=== PATIENT | male | born 1985 | race Caucasian/White ===

== ENCOUNTER 2023-04-02 02:51 | Emergency (ER) | payer OTHER, SELFPAY ==
[2023-04-02 02:55] VITALS: BP 210/89; PULSE 75; RESP 16; TEMP 36.8; O2SAT 97; BMI 21.1
--- NOTE | 2023-04-02 03:11 | ED_ITS ---
HPI - Abdominal Pain General Chief Complaint: Abdominal Pain Stated Complaint: CONSTIPATION Time Seen by Provider: 04/02/23 03:07 Source: patient Mode of arrival: walk-in Limitations: no limitations History of Present Illness HPI narrative: presents complaining of constipation. States he has not gone in 4 days. Hemodialysis patient. States his kidneys hurt. No fever. Started taking colace and states he is only passing water elicited complaint: Reports abdominal pain Related Data Home Medications Medication Instructions Recorded Confirmed aspirin 81 mg chewable tablet 04/02/23 atorvastatin 80 mg tablet mg 04/02/23 calcium acetate(phosphat bind) 667 mg 04/02/23 mg capsule carvedilol 25 mg tablet mg 04/02/23 clonidine HCl 0.1 mg tablet mg 04/02/23 clopidogrel 75 mg tablet mg 04/02/23 escitalopram oxalate 10 mg tablet mg 04/02/23 famotidine 20 mg tablet mg 04/02/23 furosemide 40 mg tablet mg 04/02/23 hydralazine 50 mg tablet mg 04/02/23 insulin glargine 100 unit/mL (3 unit subcut 04/02/23 mL) subcutaneous pen (Lantus Solostar U-100 Insulin) insulin lispro 100 unit/mL subcut 04/02/23 subcutaneous pen (Humalog KwikPen (U-100) Insulin) isosorbide mononitrate 60 mg mg PO 04/02/23 tablet,extended release 24 hr loratadine 10 mg tablet mg 04/02/23 omeprazole 40 mg capsule,delayed mg 04/02/23 release Allergies Allergy/AdvReac Type Severity Reaction Status Date / Time No Known Drug Allergies Allergy Verified 04/02/23 03:01 Review of Systems ROS Status of ROS 10 or more systems reviewed and unremarkable except as noted in history and below Exam Constitutional Vital Signs, click to edit/add: Last Vital Signs Temp 98.3 F 04/02/23 02:55 Pulse 73 04/02/23 06:48 Resp 18 04/02/23 06:48 BP 180/86 H 04/02/23 06:48 Pulse Ox 100 04/02/23 06:48 O2 Del Method Room Air 04/02/23 06:48 Common normals: average body habitus, oriented x3 and alert Eye Common normals: EOMs intact bilaterally and conjunctivae normal Respiratory Common normals: normal respiratory effort, no retractions, no use of accessory muscles and clear to auscultation bilaterally GI Common normals: Normal to inspection, nondistended, normoactive bowel sounds present and soft to palpation Other: mild tenderness Extremity Common normals: normal to inspection and full ROM Neuro Common normals: oriented x3, CN's II-XII intact bilaterally, moves all extremities and no focal motor deficits Psych Appearance: grossly normal Course Vital Signs Vital signs: Vital Signs Temperature 98.3 F 04/02/23 02:55 Pulse Rate 75 04/02/23 02:55 Respiratory Rate 16 04/02/23 02:55 Blood Pressure 210/89 H 04/02/23 02:55 Pulse Oximetry 97 04/02/23 02:55 Oxygen Delivery Method Room Air 04/02/23 02:55 Temperature 98.3 F 04/02/23 02:55 Pulse Rate 73 04/02/23 06:48 Respiratory Rate 18 04/02/23 06:48 Blood Pressure 180/86 H 04/02/23 06:48 Pulse Oximetry 100 04/02/23 06:48 Oxygen Delivery Method Room Air 04/02/23 06:48 MDM - Abdominal Pain MDM Narrative Medical decision making narrative: patient presents with constipation. dialsysis patient . CT confirms constipation. Several attempts with enema unsuccessful and patient is not wanting any further enemas. He has not been vomiting. Go lytely ordered for home. He is to return if not successful BP elevated at 180 systolic. Patient does have history of HTN. Takes several medications for HTN. States he doesn't want medication here for his BP and will take medications at home Lab Data Labs: Lab Results 04/02/23 Range/Units 03:23 WBC 10.0 (4.0-11.0) 10^3/uL RBC 4.70 (4.70-6.10) 10^6/uL Hgb 14.3 (14.0-18.0) g/dL Hct 41.8 L (42.0-54.0) % MCV 88.9 (80.0-94.0) fL MCH 30.4 (25.9-34.0) pg MCHC 34.2 (29.9-35.2) g/dL RDW 15.5 H (11.0-15.0) % Plt Count 177 (150-450) 10^3/uL MPV 9.5 (9.5-13.5) fL Neut % (Auto) 85.2 H (43.0-75.0) % Lymph % (Auto) 8.2 L (20.5-60.0) % [place] % (Auto) 4.0 (1.7-12.0) % Eos % (Auto) 1.0 (0.9-7.0) % Baso % (Auto) 1.2 (0.2-2.0) % Neut # (Auto) 8.5 H (1.4-6.5) 10^3/uL Lymph # (Auto) 0.8 L (1.2-3.8) 10^3/uL [place] # (Auto) 0.4 (0.3-0.8) 10^3/uL Eos # (Auto) 0.1 (0.0-0.7) 10^3/uL Baso # (Auto) 0.1 (0.0-0.1) 10^3/uL Abs Immat Gran (auto) 0.04 H (0.00-0.03) 10^3/uL Imm/Tot Granulo (auto) 0.4 (0.0-0.5) % Sodium 133 L (136-145) mmol/L Potassium 3.9 (3.5-5.1) mmol/L Chloride 94 L (98-107) mmol/L Carbon Dioxide 29.3 (21.0-32.0) mmol/L Anion Gap 13.6 BUN 26.0 H (7.0-18.0) mg/dL Creatinine 4.22 H (0.70-1.30) mg/dL Est GFR ( Amer) 19 L (>=60) Est GFR (Non-Af Amer) 16 L (>=60) BUN/Creatinine Ratio 6.2 Glucose 197 H (74-106) mg/dL Calcium 8.8 (8.5-10.1) mg/dL Imaging Data CT scan - abdomen: Radiologist's impression: [email or web address]=#[email or web address] [email or web address]?file=#[email or web address] Find: Highlight all Match case Current View [email or web address]=#[email or web address]=auto,-[phone] Page: of 2 Current View [email or web address]=#[email or web address]=auto,-[phone] [place] [id number] Patient Name: VIKTORIYA TAMAYO MRN: [id number] date: 1985 Sex: M Assigned Patient Location: ER Current Patient Location: ER Accession/Order Number: [id number] Exam Date: 04/02/2023 03:40 Report Date: 04/02/2023 04:19 At the request of: HOLLIE HAWLEY Procedure: CT abdomen pelvis wo con CT ABDOMEN AND PELVIS WITHOUT CONTRAST: 04/02/2023 3:40 AM EDT Clinical Data: abdominal pain Comparison: No previous Unenhanced helically acquired data per protocol. The lack of IV contrast material hampers evaluation of the viscera, for adenopathy, and of the vasculature. The lack of oral contrast medium to some extent hampers evaluation of the bowel. All CT scans at this facility use dose modulation, iterative reconstruction, and/or weight based dosing when appropriate to reduce radiation dose to as low as reasonably achievable. FINDINGS: LOWER THORAX: Unremarkable. LIVER: No acute findings. SPLEEN: No acute findings. GB/BILIARY: No acute findings at CT. PANCREAS: Very difficult to separate from numerous juxtaposed bowel. No gross abnormality ADRENALS: No acute findings. KIDNEYS/URETERS: No acute findings. VESSELS: No evidence of AAA. Calcific ASVD distal aorta and aortic bifurcation extending through the common iliac arteries and into the internal iliac arteries. This is greater than expected for age. ABDOMINAL NODES: No obvious adenopathy. PELVIC NODES: No obvious adenopathy. BLADDER: No acute findings. REPRODUCTIVE: No acute findings. PERITONEUM: No free air EXTRAPERITONEUM: No acute findings. BOWEL: No GI obstruction. The supralevator rectum distended to nearly 8 cm with stool. Margins are slightly concentrically thickened and there is a small amount of loose peribowel fluid/stranding. More proximally there is moderate stool in the distal sigmoid. There is a modest to moderate amount of stool and air right colon through splenic flecture. Stomach contains a modest amount fluid. Small bowel is not dilated BODY WALL: No acute findings. BONES: No acute findings. OTHER: No acute findings. IMPRESSION: 1. Supralevator rectum is distended with stool to nearly 8 cm. Margins are concentrically mildly thickened/inflamed and there is a small amount of loose peribowel fluid/stranding.. Electronically authenticated by: CHRIS DUFFY Date: 04/02/2023 04:19 Discharge Plan Discharge Chief Complaint: Abdominal Pain Clinical Impression: Constipation Patient Disposition: Home, Self-Care Prescriptions / Home Meds: No Action atorvastatin 80 mg tablet aspirin 81 mg tablet,chewable calcium acetate(phosphat bind) 667 mg capsule furosemide 40 mg tablet carvedilol 25 mg tablet clonidine HCl 0.1 mg tablet clopidogrel 75 mg tablet omeprazole 40 mg capsule,delayed release(DR/EC) isosorbide mononitrate 60 mg tablet extended release 24 hr PO famotidine 20 mg tablet hydralazine 50 mg tablet loratadine 10 mg tablet insulin lispro [Humalog KwikPen Insulin] 100 unit/mL insulin pen SUBCUT escitalopram oxalate 10 mg tablet insulin glargine [Lantus Solostar U-100 Insulin] 100 unit/mL (3 mL) insulin pen SUBCUT Instructions: Constipation (ED) Additional Instructions: follow instructions for Go lytely . return to ER if not successful bowel movement today Stand Alone Forms: Portal Instructions Referrals: Laurel Baca MD [Primary Care Provider] - 1 week Discharge Date/Time: 04/02/23 07:31
[2023-04-02 03:37] LABS: Anion Gap 13.6; BUN Creatinine Ratio 6.2; Calcium 8.8 mg/dL (8.5-10.1); Carbon Dioxide 29.3 mmol/L (21.0-32.0); Chloride 94 mmol/L (98-107); Estimated GFR (African America 19 (>=60); Estimated GFR (Non-African Ame 16 (>=60); Glucose 197 mg/dL (74-106); Potassium 3.9 mmol/L (3.5-5.1); Sodium 133 mmol/L (136-145)
--- NOTE | 2023-04-02 03:40 | CT_ITS ---
The [address] [address] Patient Name: VIKTORIYA TAMAYO MRN: [id number] date: 1985 Sex: M Assigned Patient Location: ER Current Patient Location: ER Accession/Order Number: [id number] Exam Date: 04/02/2023 03:40 Report Date: 04/02/2023 04:19 At the request of: HOLLIE HAWLEY Procedure: CT abdomen pelvis wo con CT ABDOMEN AND PELVIS WITHOUT CONTRAST: 04/02/2023 3:40 AM EDT Clinical Data: abdominal pain Comparison: No previous Unenhanced helically acquired data per protocol. The lack of IV contrast material hampers evaluation of the viscera, for adenopathy, and of the vasculature. The lack of oral contrast medium to some extent hampers evaluation of the bowel. All CT scans at this facility use dose modulation, iterative reconstruction, and/or weight based dosing when appropriate to reduce radiation dose to as low as reasonably achievable. FINDINGS: LOWER THORAX: Unremarkable. LIVER: No acute findings. SPLEEN: No acute findings. GB/BILIARY: No acute findings at CT. PANCREAS: Very difficult to separate from numerous juxtaposed bowel. No gross abnormality ADRENALS: No acute findings. KIDNEYS/URETERS: No acute findings. VESSELS: No evidence of AAA. Calcific ASVD distal aorta and aortic bifurcation extending through the common iliac arteries and into the internal iliac arteries. This is greater than expected for age. ABDOMINAL NODES: No obvious adenopathy. PELVIC NODES: No obvious adenopathy. BLADDER: No acute findings. REPRODUCTIVE: No acute findings. PERITONEUM: No free air EXTRAPERITONEUM: No acute findings. BOWEL: No GI obstruction. The supralevator rectum distended to nearly 8 cm with stool. Margins are slightly concentrically thickened and there is a small amount of loose peribowel fluid/stranding. More proximally there is moderate stool in the distal sigmoid. There is a modest to moderate amount of stool and air right colon through splenic flecture. Stomach contains a modest amount fluid. Small bowel is not dilated BODY WALL: No acute findings. BONES: No acute findings. OTHER: No acute findings. CT/CT abdomen pelvis wo con IMPRESSION: 1. Supralevator rectum is distended with stool to nearly 8 cm. Margins are concentrically mildly thickened/inflamed and there is a small amount of loose peribowel fluid/stranding.. Electronically authenticated by: CHRIS DUFFY Date: 04/02/2023 04:19
[2023-04-02 03:47] LABS: Basophils Absolute Auto 0.1 10^3/uL (0.0-0.1); Basophils Percent Auto 1.2 % (0.2-2.0); Eosinophils Absolute Auto 0.1 10^3/uL (0.0-0.7); Hematocrit 41.8 % (42.0-54.0); Hemoglobin 14.3 g/dL (14.0-18.0); Immature Granulocytes Abs Auto 0.04 10^3/uL (0.00-0.03); Immature Granulocytes Pct Auto 0.4 % (0.0-0.5); Lymphocytes Absolute Auto 0.8 10^3/uL (1.2-3.8); Lymphocytes Percent Auto 8.2 % (20.5-60.0); Mean Corpuscular HGB Conc 34.2 g/dL (29.9-35.2); Mean Corpuscular Hemoglobin 30.4 pg (25.9-34.0); Mean Corpuscular Volume 88.9 fL (80.0-94.0); Mean Platelet Volume 9.5 fL (9.5-13.5); Monocytes Absolute Auto 0.4 10^3/uL (0.3-0.8); Neutrophils Absolute Auto 8.5 10^3/uL (1.4-6.5); Neutrophils Percent Auto 85.2 % (43.0-75.0); Platelet Count 177 10^3/uL (150-450); Red Cell Distribution Width 15.5 % (11.0-15.0)
--- NOTE | 2023-04-02 06:24 | PC.NURSE ---
Digital completed to try and break up stool Patient was unable to tolerate it. More enema given
--- NOTE | 2023-04-02 06:35 | PC.NURSE ---
Patient refuses any further enema, states his rectum hurts and he is getting a headache. Dr dickerson
[2023-04-02 06:48] VITALS: BP 180/86; PULSE 73; RESP 18; O2SAT 100
[2023-04-02] MEDS: PEG3350/SOD SULF,BICARB,CL/KCL 4,000 ML SOLN.RECON 4000 ML PO (07:26)
== END 2023-04-02 07:31 | disposition home or self-care (01) ==
PROVIDERS: Emergency Provider Internal Medicine; PCP Family Medicine
DX: K59.00 Constipation, unspecified (principal); I10 Essential (primary) hypertension; Z99.2 Dependence on renal dialysis; Z79.82 Long term (current) use of aspirin; Z79.4 Long term (current) use of insulin; Z79.899 Other long term (current) drug therapy
CPT/HCPCS: 36415; 74176; 80048; 85025; 99284

== ENCOUNTER 2023-04-15 16:17 | Emergency (ER) | payer OTHER, SELFPAY ==
[2023-04-15 16:20] VITALS: PULSE 75; RESP 18; TEMP 36.8; O2SAT 98; BMI 22.4
--- NOTE | 2023-04-15 16:21 | ECG_ITS ---
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
--- NOTE | 2023-04-15 16:32 | CT_ITS ---
The [address] [address] Patient Name: VIKTORIYA TAMAYO MRN: [id number] date: 1985 Sex: M Assigned Patient Location: ER Current Patient Location: ER Accession/Order Number: [id number] Exam Date: 04/15/2023 17:03 Report Date: 04/15/2023 17:24 At the request of: CHELSY HOWE Procedure: CT head/brain wo con TITLE: CT head/brain wo con COMPARISON: None. CLINICAL HISTORY: SIMENTAL, HTN TECHNIQUE: 3 mm axial images without contrast. Automated exposure control was utilized. Dose reduction techniques were achieved by using automated exposure control and/or adjustment of mA and/or kV according to patient size and/or use of iterative reconstruction technique. FINDINGS: There is no mass, mass effect, parenchymal hemorrhage, nor subarachnoid hemorrhage. The extra-axial structures are unremarkable. There is no hydrocephalus. A left orbital prosthesis present. The mastoid air cells and paranasal sinuses are patent CT/CT head/brain wo con IMPRESSION: NO ACUTE INTRACRANIAL FINDINGS BY HEAD CT WITHOUT CONTRAST. DIFFUSION-WEIGHTED MRI COULD INVESTIGATE PERSISTENT SYMPTOMS Electronically authenticated by: ZURI PICKETT Date: 04/15/2023 17:24
--- NOTE | 2023-04-15 16:34 | ED.GENADUL1 ---
HPI - General Adult General Chief complaint: Headache Stated complaint: Headache, Hypertension, Stiff neck post dialysis Time Seen by Provider: 04/15/23 16:29 Source: patient and family Mode of arrival: Wheelchair Limitations: no limitations History of Present Illness HPI narrative: 38 year old male presents to the ED for a generalized headache, N/V, epigastric pain, HTN. Onset was during dialysis today. Denies fever, chills, vision changes, diarrhea, CP, SOB. Reports photophobia. He had Tylenol and clonidine at dialysis this morning. States he has been taking his BP medication as directed. Rates his pain 10/10 at this time. Reports his father brought him to the ED today. Related Data Home Medications Medication Instructions Recorded Confirmed aspirin 81 mg chewable tablet 04/02/23 atorvastatin 80 mg tablet mg 04/02/23 calcium acetate(phosphat bind) 667 mg 04/02/23 mg capsule carvedilol 25 mg tablet mg 04/02/23 clonidine HCl 0.1 mg tablet mg 04/02/23 clopidogrel 75 mg tablet mg 04/02/23 escitalopram oxalate 10 mg tablet mg 04/02/23 famotidine 20 mg tablet mg 04/02/23 furosemide 40 mg tablet mg 04/02/23 hydralazine 50 mg tablet mg 04/02/23 insulin glargine 100 unit/mL (3 unit subcut 04/02/23 mL) subcutaneous pen (Lantus Solostar U-100 Insulin) insulin lispro 100 unit/mL subcut 04/02/23 subcutaneous pen (Humalog KwikPen (U-100) Insulin) isosorbide mononitrate 60 mg mg PO 04/02/23 tablet,extended release 24 hr loratadine 10 mg tablet mg 04/02/23 omeprazole 40 mg capsule,delayed mg 04/02/23 release Previous Rx's Medication Instructions Recorded xflbhuygyu-hywrubiqudseg-mxjruzbs 1 cap PO Q8H PRN pain, headache 04/15/23 50 mg-300 mg-40 mg capsule #10 caps (Fioricet) Allergies Allergy/AdvReac Type Severity Reaction Status Date / Time No Known Drug Allergies Allergy Verified 04/02/23 03:01 Review of Systems ROS Constitutional Denies: fever, chills or fatigue Eyes Reports: light sensitivity; Denies: change in vision or blurry vision Ears, nose, mouth, and throat Denies: throat pain, nasal discharge or nasal congestion Cardiovascular Denies: chest pain Respiratory Denies: shortness of breath or cough Gastrointestinal Reports: abdominal pain, nausea and vomiting; Denies: diarrhea Musculoskeletal Denies: back pain Integumentary/Breast Denies: rash Neurological Reports: headache; Denies: numbness in extremities, weakness in extremities, lack of coordination, dizziness, vertigo, confusion or slurred speech Exam Constitutional Vital Signs, click to edit/add: Last Vital Signs Temp 98.2 F 04/15/23 16:20 Pulse 75 04/15/23 16:20 Resp 18 04/15/23 16:20 BP 132/82 04/15/23 18:28 Pulse Ox 98 04/15/23 16:20 O2 Del Method Room Air 04/15/23 16:20 Common normals: no apparent distress and oriented x3 Exam limitations: no altered mental status General appearance: cooperative; not in distress and not ill appearing [facility] Common normals: normocephalic Head and scalp: normal to inspection Face and sinus: normal facial exam and face symmetric Nose: external nose normal External ear: external ears normal Eye Common normals: PERRL, EOMs intact bilaterally, conjunctivae normal and no scleral icterus Neck & C-Spine Common normals: supple General: trachea midline Chest Chest: symmetrical chest wall rise Respiratory Common normals: normal respiratory effort and clear to auscultation bilaterally Effort & inspection: symmetric chest movement Cardio Common normals: regular rate and regular rhythm GI Common normals: Normal to inspection, nondistended, normoactive bowel sounds present, soft to palpation and non-tender Neuro Common normals: oriented x3, CN's II-XII intact bilaterally, moves all extremities and gait normal Sensorium/orientation: awake and alert Meningeal signs: no meningeal signs Speech: speech normal Course Vital Signs Vital signs: Vital Signs Temperature 98.2 F 04/15/23 16:20 Pulse Rate 75 04/15/23 16:20 Respiratory Rate 18 04/15/23 16:20 Pulse Oximetry 98 04/15/23 16:20 Oxygen Delivery Method Room Air 04/15/23 16:20 Temperature 98.2 F 04/15/23 16:20 Pulse Rate 75 04/15/23 16:20 Respiratory Rate 18 04/15/23 16:20 Blood Pressure 132/82 04/15/23 18:28 Pulse Oximetry 98 04/15/23 16:20 Oxygen Delivery Method Room Air 04/15/23 16:20 Medical Decision Making MDM Narrative Medical decision making narrative: Laboratory studies were unremarkable when compared to baseline. Imaging was negative for acute findings. He was given medication with improvement in his BP and discomfort. He reported he was comfortable being discharged home. A prescription was provided for Fioricet. Follow up with pcp for a recheck, further evaluation and treatment. Medical Records Medical records reviewed: Yes I reviewed the patient's medical records Lab Data Lab results reviewed: Yes I reviewed the patient's lab results Labs: Lab Results 04/15/23 04/15/23 Range/Units 16:35 17:04 WBC 7.6 (4.0-11.0) 10^3/uL RBC 4.19 L (4.70-6.10) 10^6/uL Hgb 12.5 L (14.0-18.0) g/dL Hct 38.0 L (42.0-54.0) % MCV 90.7 (80.0-94.0) fL MCH 29.8 (25.9-34.0) pg MCHC 32.9 (29.9-35.2) g/dL RDW 14.2 (11.0-15.0) % Plt Count 186 (150-450) 10^3/uL MPV 9.5 (9.5-13.5) fL Neut % (Auto) 77.7 H (43.0-75.0) % Lymph % (Auto) 14.1 L (20.5-60.0) % [place] % (Auto) 4.3 (1.7-12.0) % Eos % (Auto) 2.1 (0.9-7.0) % Baso % (Auto) 1.4 (0.2-2.0) % Neut # (Auto) 5.9 (1.4-6.5) 10^3/uL Lymph # (Auto) 1.1 L (1.2-3.8) 10^3/uL [place] # (Auto) 0.3 (0.3-0.8) 10^3/uL Eos # (Auto) 0.2 (0.0-0.7) 10^3/uL Baso # (Auto) 0.1 (0.0-0.1) 10^3/uL Abs Immat Gran (auto) 0.03 (0.00-0.03) 10^3/uL Imm/Tot Granulo (auto) 0.4 (0.0-0.5) % Sodium 135 L (136-145) mmol/L Potassium 4.3 (3.5-5.1) mmol/L Chloride 98 (98-107) mmol/L Carbon Dioxide 29.3 (21.0-32.0) mmol/L Anion Gap 12.0 BUN 30.0 H (7.0-18.0) mg/dL Creatinine 3.87 H (0.70-1.30) mg/dL Est GFR ( Amer) 21 L (>=60) Est GFR (Non-Af Amer) 18 L (>=60) BUN/Creatinine Ratio 7.8 Glucose 205 H (74-106) mg/dL Calcium 8.2 L (8.5-10.1) mg/dL Total Bilirubin 0.3 (0.2-1.0) mg/dL AST 16 (15-37) U/L ALT 15 L (16-63) U/L Alkaline Phosphatase 90 (46-116) U/L Total Protein 6.7 (6.4-8.2) g/dL Albumin 2.8 L (3.4-5.0) g/dL Globulin 3.9 g/dL Albumin/Globulin Ratio 0.[address] scan - head: Radiologist's impression: Procedure: CT head/brain wo con TITLE: CT head/brain wo con COMPARISON: None. CLINICAL HISTORY: SIMENTAL, HTN TECHNIQUE: 3 mm axial images without contrast. Automated exposure control was utilized. Dose reduction techniques were achieved by using automated exposure control and/or adjustment of mA and/or kV according to patient size and/or use of iterative reconstruction technique. FINDINGS: There is no mass, mass effect, parenchymal hemorrhage, nor subarachnoid hemorrhage. The extra-axial structures are unremarkable. There is no hydrocephalus. A left orbital prosthesis present. The mastoid air cells and paranasal sinuses are patent CT/CT head/brain wo con IMPRESSION: NO ACUTE INTRACRANIAL FINDINGS BY HEAD CT WITHOUT CONTRAST. DIFFUSION-WEIGHTED MRI COULD INVESTIGATE PERSISTENT SYMPTOMS Electronically authenticated by: ZURI PICKETT Date: 04/15/2023 17:24 Discharge Plan Discharge Chief Complaint: Headache Clinical Impression: Headache, Dialysis patient, Hypertension Patient Disposition: Home, Self-Care Time of Disposition Decision: 18:30 Condition: Good Mode of Transportation: Private Vehicle Prescriptions / Home Meds: New hbxmugzspj-mdlygmpdyymlu-ydzm [Fioricet] 50-300-40 mg capsule 1 cap PO Q8H PRN (Reason: pain, headache) Qty: 10 0RF No Action atorvastatin 80 mg tablet aspirin 81 mg tablet,chewable calcium acetate(phosphat bind) 667 mg capsule furosemide 40 mg tablet carvedilol 25 mg tablet clonidine HCl 0.1 mg tablet clopidogrel 75 mg tablet omeprazole 40 mg capsule,delayed release(DR/EC) isosorbide mononitrate 60 mg tablet extended release 24 hr PO famotidine 20 mg tablet hydralazine 50 mg tablet loratadine 10 mg tablet insulin lispro [Humalog KwikPen Insulin] 100 unit/mL insulin pen SUBCUT escitalopram oxalate 10 mg tablet insulin glargine [Lantus Solostar U-100 Insulin] 100 unit/mL (3 mL) insulin pen SUBCUT Instructions: Acute Headache (ED), Hypertension (ED) Stand Alone Forms: Portal Instructions Referrals: Rolando Kothari DO [Primary Care Provider] - 1 week Discharge Date/Time: 04/15/23 18:42
[2023-04-15] MEDS: ONDANSETRON PF 4 MG/2 ML VIAL IV (16:46)
[2023-04-15 16:47] VITALS: BP 210/100
[2023-04-15] MEDS: HYDRALAZINE HCL 20 MG/ML VIAL 10 MG IVP ×2 (16:47→17:57)
[2023-04-15] MEDS: DIPHENHYDRAMINE HCL 50 MG/ML (1ML) VIAL 25 MG IV (16:48)
[2023-04-15] MEDS: DEXAMETHASONE SODIUM PHOSPHATE 10 MG/ML VIAL IV (16:49)
--- NOTE | 2023-04-15 17:02 | PC.NURSE ---
Pt was at dialysis this morning and got a throbbing headache. pt BP was elevated and the dialysis staff gave Clonidine and tylenol. pt began getting nauseous and vomiting.
[2023-04-15 17:29] LABS: Basophils Absolute Auto 0.1 10^3/uL (0.0-0.1); Basophils Percent Auto 1.4 % (0.2-2.0); Eosinophils Absolute Auto 0.2 10^3/uL (0.0-0.7); Eosinophils Percent Auto 2.1 % (0.9-7.0); Hemoglobin 12.5 g/dL (14.0-18.0); Immature Granulocytes Abs Auto 0.03 10^3/uL (0.00-0.03); Immature Granulocytes Pct Auto 0.4 % (0.0-0.5); Lymphocytes Absolute Auto 1.1 10^3/uL (1.2-3.8); Lymphocytes Percent Auto 14.1 % (20.5-60.0); Mean Corpuscular HGB Conc 32.9 g/dL (29.9-35.2); Mean Corpuscular Hemoglobin 29.8 pg (25.9-34.0); Mean Corpuscular Volume 90.7 fL (80.0-94.0); Mean Platelet Volume 9.5 fL (9.5-13.5); Monocytes Absolute Auto 0.3 10^3/uL (0.3-0.8); Monocytes Percent Auto 4.3 % (1.7-12.0); Neutrophils Absolute Auto 5.9 10^3/uL (1.4-6.5); Neutrophils Percent Auto 77.7 % (43.0-75.0); Platelet Count 186 10^3/uL (150-450); Red Blood Count 4.19 10^6/uL (4.70-6.10); Red Cell Distribution Width 14.2 % (11.0-15.0); White Blood Count 7.6 10^3/uL (4.0-11.0)
[2023-04-15 17:44] LABS: Alanine Aminotransferase 15 U/L (16-63); Albumin Globulin Ratio 0.7; Albumin Level 2.8 g/dL (3.4-5.0); Alkaline Phosphatase 90 U/L (46-116); Aspartate Amino Transferase 16 U/L (15-37); BUN Creatinine Ratio 7.8; Bilirubin Total 0.3 mg/dL (0.2-1.0); Calcium 8.2 mg/dL (8.5-10.1); Carbon Dioxide 29.3 mmol/L (21.0-32.0); Chloride 98 mmol/L (98-107); Estimated GFR (African America 21 (>=60); Estimated GFR (Non-African Ame 18 (>=60); Globulin 3.9 g/dL; Glucose 205 mg/dL (74-106); Potassium 4.3 mmol/L (3.5-5.1); Sodium 135 mmol/L (136-145); Total Protein 6.7 g/dL (6.4-8.2)
[2023-04-15 17:57] VITALS: BP 176/92
[2023-04-15] MEDS: METOCLOPRAMIDE HCL 10 MG/2 ML VIAL IVP (17:57)
[2023-04-15] MEDS: MORPHINE SULFATE 2 MG/ML SYRINGE IV (17:57)
[2023-04-15 18:28] VITALS: BP 132/82
== END 2023-04-15 18:42 | disposition home or self-care (01) ==
PROVIDERS: Nurse Practitioner Family; Emergency Provider Emergency Medicine; PCP Internal Medicine
DX: R51.9 Headache, unspecified (principal); I10 Essential (primary) hypertension; Z99.2 Dependence on renal dialysis; Z79.82 Long term (current) use of aspirin; Z79.4 Long term (current) use of insulin; Z79.899 Other long term (current) drug therapy
CPT/HCPCS: 36415; 70450; 80053; 85025; 93005; 96374; 96375; 96376; 99285; J1100

== ENCOUNTER 2023-07-09 13:55 | Emergency (ER) | payer MEDICARE, MEDICAID, SELFPAY ==
[2023-07-09] VITALS (12 sets, daily range): BP systolic 152–229; BP diastolic 76–101; PULSE 68–88; RESP 12–20; TEMP 36.9; O2SAT 92–100; BMI 21.7
--- NOTE | 2023-07-09 14:04 | ECG_ITS ---
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1985 Requested By: Rolando Olivares Order Number: [id number] Reading MD: ROLANDO OLIVARES Measurements Intervals [place] Rate: 77 P: 72 IN: 176 QRS: 65 QRSD: 86 T: 250 QT: 402 QTc: 434 Interpretive Statements 1100 Sinus rhythm 3434 Septal myocardial infarction, age undetermined [address] depression 4564 Twave abnormality, possible lateral ischemia 4664 Twave abnormality, possible inferior ischemia 9150 abnormal ECG Compared to ECG 04/15/2023 16:27:41 ST (T wave) deviation now present Myocardial infarct finding still present Possible ischemia still present Electronically Signed On 07-10-2023 7:02:20 EST by ROLANDO OLIVARES
--- NOTE | 2023-07-09 14:22 | XR_ITS ---
[address] [address] Patient Name: VIKTORIYA TAMAYO MRN: [id number] date: 1985 Sex: M Assigned Patient Location: ER Current Patient Location: ER Accession/Order Number: [id number] Exam Date: 07/09/2023 14:55 Report Date: 07/09/2023 15:35 At the request of: KD MARSHALL Procedure: XR acute abdomen series EXAM: XR acute abdomen series HISTORY: Chest pain/Abdominal pain COMPARISON: None. TECHNIQUE: Chest X-ray AP, 1 view Abdominal x-ray, 2 view. FINDINGS: Support devices: None. Lungs/pleura: No consolidation, effusion, or pneumothorax. Heart and mediastinum: Normal contours. Bones: No acute abnormality identified. No bowel obstruction. Bowel: Large volume stool burden. No bowel dilatation. XR/XR acute abdomen series IMPRESSION: Constipation. Electronically authenticated by: DONAL WATTS Date: 07/09/2023 15:35
[2023-07-09 14:29] LABS: Basophils Absolute Auto 0.1 10^3/uL (0.0-0.1); Basophils Percent Auto 0.7 % (0.2-2.0); Eosinophils Absolute Auto 0.1 10^3/uL (0.0-0.7); Eosinophils Percent Auto 1.1 % (0.9-7.0); Hematocrit 31.5 % (42.0-54.0); Hemoglobin 11.1 g/dL (14.0-18.0); Immature Granulocytes Abs Auto 0.06 10^3/uL (0.00-0.03); Immature Granulocytes Pct Auto 0.5 % (0.0-0.5); Lymphocytes Absolute Auto 0.9 10^3/uL (1.2-3.8); Lymphocytes Percent Auto 6.9 % (20.5-60.0); Mean Corpuscular HGB Conc 35.2 g/dL (29.9-35.2); Mean Corpuscular Hemoglobin 32.2 pg (25.9-34.0); Mean Corpuscular Volume 91.3 fL (80.0-94.0); Mean Platelet Volume 9.4 fL (9.5-13.5); Monocytes Absolute Auto 0.5 10^3/uL (0.3-0.8); Neutrophils Absolute Auto 10.7 10^3/uL (1.4-6.5); Neutrophils Percent Auto 86.8 % (43.0-75.0); Platelet Count 156 10^3/uL (150-450); Red Blood Count 3.45 10^6/uL (4.70-6.10); Red Cell Distribution Width 14.9 % (11.0-15.0); White Blood Count 12.3 10^3/uL (4.0-11.0)
[2023-07-09] MEDS: HYDROMORPHONE HCL 1 MG/ML CARTRIDGE IVP (14:29)
[2023-07-09] MEDS: ENALAPRILAT DIHYDRATE 1.25 MG/ML VIAL IV (14:31)
[2023-07-09] MEDS: ONDANSETRON PF 4 MG/2 ML VIAL IV (14:31)
[2023-07-09] MEDS: LABETALOL HCL 20 MG/4 ML SYRINGE IVP (14:31)
[2023-07-09] MEDS: HYOSCYAMINE SULFATE 0.125 MG TAB.SUBL SL (14:31)
--- NOTE | 2023-07-09 14:35 | ED.GENADUL1 ---
Documented by User: JOURDAN Garcia 07/09/23 17:16 HPI - General Adult General Chief complaint: Abdominal Pain Stated complaint: ABDOMINAL PAIN Time Seen by Provider: 07/09/23 14:05 Source: patient Mode of arrival: Wheelchair Limitations: no limitations History of Present Illness HPI narrative: Patient is a 38-year-old male with a complex medical history of coronary artery disease, insulin-dependent diabetes, multiple myeloma, end-stage renal disease on dialysis who presents to the emergency department with complaint of constipation x1 week and chest pain that began today. He was transferred from this facility in December of this year to [facility] where his avionics systems integration specialist, Dr. Gomez, placed an additional stent in the right side of his heart for a total of 3 stents in the right side of his heart. He takes his blood pressure medication at nighttime, he has not taken any medications today for his blood pressure and is noted to be significantly hypertensive on arrival. He complains of diffuse abdominal pain, he states his kidneys are burning in addition to the anterior chest pain. No fevers, vomiting or diarrhea. He denies urinary symptoms, cough or congestion. He completed dialysis yesterday, he states they do blood work before every dialysis treatment although he does not know what his kidney function was yesterday. Related Data Home Medications Medication Instructions Recorded Confirmed aspirin 81 mg chewable tablet 04/02/23 atorvastatin 80 mg tablet mg 04/02/23 calcium acetate(phosphat bind) 667 mg 04/02/23 mg capsule carvedilol 25 mg tablet mg 04/02/23 clonidine HCl 0.1 mg tablet mg 04/02/23 clopidogrel 75 mg tablet mg 04/02/23 escitalopram oxalate 10 mg tablet mg 04/02/23 famotidine 20 mg tablet mg 04/02/23 furosemide 40 mg tablet mg 04/02/23 hydralazine 50 mg tablet mg 04/02/23 insulin glargine 100 unit/mL (3 unit subcut 04/02/23 mL) subcutaneous pen (Lantus Solostar U-100 Insulin) insulin lispro 100 unit/mL subcut 04/02/23 subcutaneous pen (Humalog KwikPen (U-100) Insulin) isosorbide mononitrate 60 mg mg PO 04/02/23 tablet,extended release 24 hr loratadine 10 mg tablet mg 04/02/23 omeprazole 40 mg capsule,delayed mg 04/02/23 release Previous Rx's Medication Instructions Recorded pjxctfxhws-vbhzrumohofhv-yfiivwlp 1 cap PO Q8H PRN pain, headache 04/15/23 50 mg-300 mg-40 mg capsule #10 caps (Fioricet) hyoscyamine sulfate 0.125 mg 0.125 mg PO Q6H PRN abdominal pain 07/09/23 tablet (Levsin) #12 tabs ondansetron 4 mg disintegrating 4 mg PO Q6H PRN nausea and 07/09/23 tablet vomiting #12 tabs peg 3350-electrolytes 236 240 ml PO Q10M #4,000 mL 07/09/23 gram-22.74 gram-6.74 gram-5.86 gram solution (Golytely) Allergies Allergy/AdvReac Type Severity Reaction Status Date / Time No Known Drug Allergies Allergy Verified 04/02/23 03:01 Review of Systems ROS Constitutional Denies: fever or chills Ears, nose, mouth, and throat Denies: throat pain Cardiovascular Reports: chest pain Respiratory Denies: shortness of breath or cough Gastrointestinal Reports: abdominal pain, nausea and constipation; Denies: vomiting or diarrhea Genitourinary Denies: painful urination Musculoskeletal Reports: back pain Integumentary/Breast Denies: rash Neurological Denies: headache Endocrine Denies: excessive urination [facility] Social History Smoking status: Heavy tobacco smoker Exam Narrative Exam Narrative: Gen.: Awake, alert, in no distress Head: Normocephalic, atraumatic ENT: Moist mucous membranes Respiratory: No respiratory distress, lungs clear bilaterally Cardio: Regular rate and rhythm Gastrointestinal: Abdomen is soft, diffusely tender to palpation with voluntary guarding, no rebound. No distention or rigidity Extremities: Moves extremities equally, AV fistula to the left upper extremity Psych: Normal mood and affect Neuro: No focal neuro deficit Skin: Warm, dry, intact Constitutional Vital Signs, click to edit/add: Last Vital Signs Temp 98.5 F 07/09/23 13:57 Pulse 68 07/09/23 16:55 Resp 14 07/09/23 16:55 BP 160/83 H 07/09/23 17:01 Pulse Ox 97 07/09/23 16:55 O2 Del Method Room Air 07/09/23 15:16 O2 Flow Rate 2 07/09/23 14:41 Course Vital Signs Vital signs: Vital Signs Temperature 98.5 F 07/09/23 13:57 Pulse Rate 79 07/09/23 13:57 Respiratory Rate 20 07/09/23 13:57 Blood Pressure 229/101 H 07/09/23 13:57 Pulse Oximetry 100 07/09/23 13:57 Oxygen Delivery Method Room Air 07/09/23 13:57 Temperature 98.5 F 07/09/23 13:57 Pulse Rate 68 07/09/23 16:55 Respiratory Rate 14 07/09/23 16:55 Blood Pressure 160/83 H 07/09/23 17:01 Pulse Oximetry 97 07/09/23 16:55 Oxygen Delivery Method Room Air 07/09/23 15:16 Oxygen Delivery Flow Rate 2 07/09/23 14:41 Medical Decision Making MDM Narrative Medical decision making narrative: IV established, EKG obtained and patient was medicated for pain and blood pressure. X-rays show nonobstructive bowel gas pattern, clear chest x-ray and significant constipation. Lab studies are stable in terms of the patient's renal function, electrolytes are normal and patient had 2 normal troponins in the emergency department He was medicated for elevated blood pressure multiple times. Blood pressure at time of discharge is 160/80. Patient will be treated with GoLytely and Levsin for home for constipation. He was reevaluated by attending physician prior to discharge. Follow-up with PCP and cardiology and return to the ER if symptoms change or worsen. Medical Records Medical records reviewed: Yes I reviewed the patient's medical records Lab Data Lab results reviewed: Yes I reviewed the patient's lab results Labs: Lab Results 07/09/23 07/09/23 Range/Units 14:15 16:32 WBC 12.3 H (4.0-11.0) 10^3/uL RBC 3.45 L (4.70-6.10) 10^6/uL Hgb 11.1 L (14.0-18.0) g/dL Hct 31.5 L (42.0-54.0) % MCV 91.3 (80.0-94.0) fL MCH 32.2 (25.9-34.0) pg MCHC 35.2 (29.9-35.2) g/dL RDW 14.9 (11.0-15.0) % Plt Count 156 (150-450) 10^3/uL MPV 9.4 L (9.5-13.5) fL Neut % (Auto) 86.8 H (43.0-75.0) % Lymph % (Auto) 6.9 L (20.5-60.0) % Hudson % (Auto) 4.0 (1.7-12.0) % Eos % (Auto) 1.1 (0.9-7.0) % Baso % (Auto) 0.7 (0.2-2.0) % Neut # (Auto) 10.7 H (1.4-6.5) 10^3/uL Lymph # (Auto) 0.9 L (1.2-3.8) 10^3/uL Hudson # (Auto) 0.5 (0.3-0.8) 10^3/uL Eos # (Auto) 0.1 (0.0-0.7) 10^3/uL Baso # (Auto) 0.1 (0.0-0.1) 10^3/uL Abs Immat Gran (auto) 0.06 H (0.00-0.03) 10^3/uL Imm/Tot Granulo (auto) 0.5 (0.0-0.5) % Sodium 134 L (136-145) mmol/L Potassium 3.9 (3.5-5.1) mmol/L Chloride 97 L (98-107) mmol/L Carbon Dioxide 28.2 (21.0-32.0) mmol/L Anion Gap 12.7 BUN 33.0 H (7.0-18.0) mg/dL Creatinine 4.85 H (0.70-1.30) mg/dL Est GFR ( Amer) 16 L (>=60) Est GFR (Non-Af Amer) 14 L (>=60) BUN/Creatinine Ratio 6.8 Glucose 84 (74-106) mg/dL Lactate 0.7 (0.4-2.0) mmol/L Calcium 8.7 (8.5-10.1) mg/dL Total Bilirubin 0.5 (0.2-1.0) mg/dL Direct Bilirubin 0.1 (0.0-0.2) mg/dL AST 16 (15-37) U/L ALT 8 L (16-63) U/L Alkaline Phosphatase 76 (46-116) U/L Troponin I High Sens 33.8 34.0 (4.0-76.1) pg/mL Total Protein 6.9 (6.4-8.2) g/dL Albumin 3.2 L (3.4-5.0) g/dL Globulin 3.7 g/dL Albumin/Globulin Ratio 0.9 Lipase 10.0 L (16.0-77.0) U/L Imaging Data Abdominal x-ray: Attestation: I have reviewed the pertinent imaging results. Radiologist's impression: Procedure: XR acute abdomen series EXAM: XR acute abdomen series HISTORY: Chest pain/Abdominal pain COMPARISON: None. TECHNIQUE: Chest X-ray AP, 1 view Abdominal x-ray, 2 view. FINDINGS: Support devices: None. Lungs/pleura: No consolidation, effusion, or pneumothorax. Heart and mediastinum: Normal contours. Bones: No acute abnormality identified. No bowel obstruction. Bowel: Large volume stool burden. No bowel dilatation. IMPRESSION: Constipation. Electronically authenticated by: DONAL WATTS Date: 07/09/2023 15:35 ECG Data Attestation: I personally reviewed and interpreted this ECG as follows: (Normal sinus rhythm at a rate of 77, diffuse ST depression and T wave inversion of the lateral leads, no change from EKG 04/15/2023. EKG reviewed by attending physician. No acute ST elevation or ectopy.) Discharge Plan Discharge Chief Complaint: Abdominal Pain Clinical Impression: Constipation, Hypertension, Abdominal pain, Chest pain Patient Disposition: Home, Self-Care Time of Disposition Decision: 17:15 Condition: Good Prescriptions / Home Meds: New hyoscyamine sulfate [Levsin] 0.125 mg tablet 0.125 mg PO Q6H PRN (Reason: abdominal pain) Qty: 12 0RF ondansetron 4 mg tablet,disintegrating 4 mg PO Q6H PRN (Reason: nausea and vomiting) Qty: 12 0RF peg 3350-electrolytes [Golytely] 236-22.74-6.74 -5.86 gram recon soln 240 ml PO Q10M Qty: 4000 0RF Rx Instructions: until fecal effluent is clear No Action atorvastatin 80 mg tablet aspirin 81 mg tablet,chewable calcium acetate(phosphat bind) 667 mg capsule furosemide 40 mg tablet carvedilol 25 mg tablet clonidine HCl 0.1 mg tablet clopidogrel 75 mg tablet omeprazole 40 mg capsule,delayed release(DR/EC) isosorbide mononitrate 60 mg tablet extended release 24 hr PO famotidine 20 mg tablet hydralazine 50 mg tablet loratadine 10 mg tablet insulin lispro [Humalog KwikPen Insulin] 100 unit/mL insulin pen SUBCUT escitalopram oxalate 10 mg tablet insulin glargine [Lantus Solostar U-100 Insulin] 100 unit/mL (3 mL) insulin pen SUBCUT ezhyzwbffr-xkggggwxvjxuq-ymfk [Fioricet] 50-300-40 mg capsule 1 cap PO Q8H PRN (Reason: pain, headache) Qty: 10 0RF Instructions: Chest Pain (ED), Constipation (ED), Abdominal Pain (ED), Hypertension (ED) Stand Alone Forms: Portal Instructions Referrals: Rolando Kothari DO [Primary Care Provider] - 1 week Documented by User: Lex Barber 07/09/23 17:39 HPI - General Adult General Chief complaint: Abdominal Pain Stated complaint: ABDOMINAL PAIN Time Seen by Provider: 07/09/23 14:05 Related Data Home Medications Medication Instructions Recorded Confirmed aspirin 81 mg chewable tablet 04/02/23 atorvastatin 80 mg tablet mg 04/02/23 calcium acetate(phosphat bind) 667 mg 04/02/23 mg capsule carvedilol 25 mg tablet mg 04/02/23 clonidine HCl 0.1 mg tablet mg 04/02/23 clopidogrel 75 mg tablet mg 04/02/23 escitalopram oxalate 10 mg tablet mg 04/02/23 famotidine 20 mg tablet mg 04/02/23 furosemide 40 mg tablet mg 04/02/23 hydralazine 50 mg tablet mg 04/02/23 insulin glargine 100 unit/mL (3 unit subcut 04/02/23 mL) subcutaneous pen (Lantus Solostar U-100 Insulin) insulin lispro 100 unit/mL subcut 04/02/23 subcutaneous pen (Humalog KwikPen (U-100) Insulin) isosorbide mononitrate 60 mg mg PO 04/02/23 tablet,extended release 24 hr loratadine 10 mg tablet mg 04/02/23 omeprazole 40 mg capsule,delayed mg 04/02/23 release Previous Rx's Medication Instructions Recorded ykurcdjmij-qazyqflhqybak-yryoryvg 1 cap PO Q8H PRN pain, headache 04/15/23 50 mg-300 mg-40 mg capsule #10 caps (Fioricet) hyoscyamine sulfate 0.125 mg 0.125 mg PO Q6H PRN abdominal pain 07/09/23 tablet (Levsin) #12 tabs ondansetron 4 mg disintegrating 4 mg PO Q6H PRN nausea and 07/09/23 tablet vomiting #12 tabs peg 3350-electrolytes 236 240 ml PO Q10M #4,000 mL 07/09/23 gram-22.74 gram-6.74 gram-5.86 gram solution (Golytely) Allergies Allergy/AdvReac Type Severity Reaction Status Date / Time No Known Drug Allergies Allergy Verified 04/02/23 03:01 [facility] Social History Smoking status: Heavy tobacco smoker Exam Constitutional Vital Signs, click to edit/add: Last Vital Signs Temp 98.5 F 07/09/23 13:57 Pulse 68 07/09/23 16:55 Resp 14 07/09/23 16:55 BP 160/83 H 07/09/23 17:01 Pulse Ox 97 07/09/23 16:55 O2 Del Method Room Air 07/09/23 15:16 O2 Flow Rate 2 07/09/23 14:41 Course Vital Signs Vital signs: Vital Signs Temperature 98.5 F 07/09/23 13:57 Pulse Rate 79 07/09/23 13:57 Respiratory Rate 20 07/09/23 13:57 Blood Pressure 229/101 H 07/09/23 13:57 Pulse Oximetry 100 07/09/23 13:57 Oxygen Delivery Method Room Air 07/09/23 13:57 Temperature 98.5 F 07/09/23 13:57 Pulse Rate 68 07/09/23 16:55 Respiratory Rate 14 07/09/23 16:55 Blood Pressure 160/83 H 07/09/23 17:01 Pulse Oximetry 97 07/09/23 16:55 Oxygen Delivery Method Room Air 07/09/23 15:16 Oxygen Delivery Flow Rate 2 07/09/23 14:41 Medical Decision Making MDM Narrative Medical decision making narrative: IV established, EKG obtained and patient was medicated for pain and blood pressure. X-rays show nonobstructive bowel gas pattern, clear chest x-ray and significant constipation. Lab studies are stable in terms of the patient's renal function, electrolytes are normal and patient had 2 normal troponins in the emergency department He was medicated for elevated blood pressure multiple times. Blood pressure at time of discharge is 160/80. Patient will be treated with GoLytely and Levsin for home for constipation. He was reevaluated by attending physician prior to discharge. Follow-up with PCP and cardiology and return to the ER if symptoms change or worsen. Attending physician note - I saw and examined the patient and we talked about his symptoms. The constipation is causing increased abdominal pain which is affecting his daily living. He has experienced chest discomfort intermittently for about 2 weeks. He said that the chest pain is worse with movement of the torso and deep breaths. No associated shortness fo breath. Cardiac workup negative in ED. Patient's BP has decreased after treatment with Labetalol x 2 and Vasotec. He will take his scheduled BP med when he gets home. Prescriptions for Levsin and GoLytely solution sent to help with his constipation. He was instructed to attend his dialysis session tomorrow - ED return if he worsens. - DO Jennifer. Lab Data Labs: Lab Results 07/09/23 07/09/23 Range/Units 14:15 16:32 WBC 12.3 H (4.0-11.0) 10^3/uL RBC 3.45 L (4.70-6.10) 10^6/uL Hgb 11.1 L (14.0-18.0) g/dL Hct 31.5 L (42.0-54.0) % MCV 91.3 (80.0-94.0) fL MCH 32.2 (25.9-34.0) pg MCHC 35.2 (29.9-35.2) g/dL RDW 14.9 (11.0-15.0) % Plt Count 156 (150-450) 10^3/uL MPV 9.4 L (9.5-13.5) fL Neut % (Auto) 86.8 H (43.0-75.0) % Lymph % (Auto) 6.9 L (20.5-60.0) % Hudson % (Auto) 4.0 (1.7-12.0) % Eos % (Auto) 1.1 (0.9-7.0) % Baso % (Auto) 0.7 (0.2-2.0) % Neut # (Auto) 10.7 H (1.4-6.5) 10^3/uL Lymph # (Auto) 0.9 L (1.2-3.8) 10^3/uL Hudson # (Auto) 0.5 (0.3-0.8) 10^3/uL Eos # (Auto) 0.1 (0.0-0.7) 10^3/uL Baso # (Auto) 0.1 (0.0-0.1) 10^3/uL Abs Immat Gran (auto) 0.06 H (0.00-0.03) 10^3/uL Imm/Tot Granulo (auto) 0.5 (0.0-0.5) % Sodium 134 L (136-145) mmol/L Potassium 3.9 (3.5-5.1) mmol/L Chloride 97 L (98-107) mmol/L Carbon Dioxide 28.2 (21.0-32.0) mmol/L Anion Gap 12.7 BUN 33.0 H (7.0-18.0) mg/dL Creatinine 4.85 H (0.70-1.30) mg/dL Est GFR ( Amer) 16 L (>=60) Est GFR (Non-Af Amer) 14 L (>=60) BUN/Creatinine Ratio 6.8 Glucose 84 (74-106) mg/dL Lactate 0.7 (0.4-2.0) mmol/L Calcium 8.7 (8.5-10.1) mg/dL Total Bilirubin 0.5 (0.2-1.0) mg/dL Direct Bilirubin 0.1 (0.0-0.2) mg/dL AST 16 (15-37) U/L ALT 8 L (16-63) U/L Alkaline Phosphatase 76 (46-116) U/L Troponin I High Sens 33.8 34.0 (4.0-76.1) pg/mL Total Protein 6.9 (6.4-8.2) g/dL Albumin 3.2 L (3.4-5.0) g/dL Globulin 3.7 g/dL Albumin/Globulin Ratio 0.9 Lipase 10.0 L (16.0-77.0) U/L Discharge Plan Discharge Chief Complaint: Abdominal Pain Clinical Impression: Constipation, Hypertension, Abdominal pain, Chest pain Patient Disposition: Home, Self-Care Time of Disposition Decision: 17:15 Condition: Good Prescriptions / Home Meds: New hyoscyamine sulfate [Levsin] 0.125 mg tablet 0.125 mg PO Q6H PRN (Reason: abdominal pain) Qty: 12 0RF ondansetron 4 mg tablet,disintegrating 4 mg PO Q6H PRN (Reason: nausea and vomiting) Qty: 12 0RF peg 3350-electrolytes [Golytely] 236-22.74-6.74 -5.86 gram recon soln 240 ml PO Q10M Qty: 4000 0RF Rx Instructions: until fecal effluent is clear No Action atorvastatin 80 mg tablet aspirin 81 mg tablet,chewable calcium acetate(phosphat bind) 667 mg capsule furosemide 40 mg tablet carvedilol 25 mg tablet clonidine HCl 0.1 mg tablet clopidogrel 75 mg tablet omeprazole 40 mg capsule,delayed release(DR/EC) isosorbide mononitrate 60 mg tablet extended release 24 hr PO famotidine 20 mg tablet hydralazine 50 mg tablet loratadine 10 mg tablet insulin lispro [Humalog KwikPen Insulin] 100 unit/mL insulin pen SUBCUT escitalopram oxalate 10 mg tablet insulin glargine [Lantus Solostar U-100 Insulin] 100 unit/mL (3 mL) insulin pen SUBCUT fdnbwqyccy-ajyziyfbomceu-tpyn [Fioricet] 50-300-40 mg capsule 1 cap PO Q8H PRN (Reason: pain, headache) Qty: 10 0RF Instructions: Chest Pain (ED), Constipation (ED), Abdominal Pain (ED), Hypertension (ED) Stand Alone Forms: Portal Instructions Referrals: Rolando Kothari DO [Primary Care Provider] - 1 week
[2023-07-09 15:02] LABS: Alanine Aminotransferase 8 U/L (16-63); Albumin Globulin Ratio 0.9; Albumin Level 3.2 g/dL (3.4-5.0); Alkaline Phosphatase 76 U/L (46-116); Anion Gap 12.7; Aspartate Amino Transferase 16 U/L (15-37); BUN Creatinine Ratio 6.8; Bilirubin Direct 0.1 mg/dL (0.0-0.2); Bilirubin Total 0.5 mg/dL (0.2-1.0); Calcium 8.7 mg/dL (8.5-10.1); Carbon Dioxide 28.2 mmol/L (21.0-32.0); Chloride 97 mmol/L (98-107); Estimated GFR (African America 16 (>=60); Estimated GFR (Non-African Ame 14 (>=60); Globulin 3.7 g/dL; Glucose 84 mg/dL (74-106); Potassium 3.9 mmol/L (3.5-5.1); Sodium 134 mmol/L (136-145); Total Protein 6.9 g/dL (6.4-8.2); Troponin I High Sensitivity 33.8 pg/mL (4.0-76.1)
[2023-07-09 15:08] LABS: Lactate/Lactic Acid 0.7 mmol/L (0.4-2.0)
[2023-07-09] MEDS: LABETALOL HCL 20 MG/4 ML SYRINGE 40 MG IVP (16:46)
== END 2023-07-09 17:51 | disposition home or self-care (01) ==
PROVIDERS: Physician Assistant; Emergency Provider Emergency Medicine; PCP Internal Medicine
DX: K59.00 Constipation, unspecified (principal); I10 Essential (primary) hypertension; R10.9 Unspecified abdominal pain; R07.9 Chest pain, unspecified; F17.210 Nicotine dependence, cigarettes, uncomplicated; I25.10 Atherosclerotic heart disease of native coronary artery without angina pectoris; E11.22 Type 2 diabetes mellitus with diabetic chronic kidney disease; N18.6 End stage renal disease; C90.00 Multiple myeloma not having achieved remission; Z99.2 Dependence on renal dialysis; Z95.5 Presence of coronary angioplasty implant and graft; Z79.82 Long term (current) use of aspirin; Z79.899 Other long term (current) drug therapy; Z79.4 Long term (current) use of insulin
CPT/HCPCS: 36415; 74022; 80053; 80076; 83605; 83690; 84484; 85025; 93005; 96374; 96375; 96376; 99285; J1170

== ENCOUNTER 2023-07-10 12:54 | Emergency (ER) | payer MEDICARE, MEDICAID, SELFPAY ==
[2023-07-10] VITALS (29 sets, daily range): BP systolic 159–223; BP diastolic 75–100; PULSE 72–92; RESP 0–20; TEMP 36.9; O2SAT 96–100; BMI 21.7
--- NOTE | 2023-07-10 13:21 | PC.NURSE ---
PT IS DIALYSIS PT AND WAS SUPPOSE TO GET DIALYSIS TODAY BUT MISSED D/T FEELING ILL. PT HAS ALSO BEEN HAVING CONSTIPATIONAND TAKING GOLYTELY WITH LITTLE TO NO RESULTS. PT C/O CP THAT STARTED TODAY
--- NOTE | 2023-07-10 13:25 | XR_ITS ---
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 The lungs are clear. There is no evidence of pleural effusion or pneumothorax. XR/XR chest 1V IMPRESSION: Chest radiograph is within normal limits. Electronically authenticated by: OUMOU MATTHEWS Date: 07/10/2023 14:35
--- NOTE | 2023-07-10 13:25 | ECG_ITS ---
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
--- NOTE | 2023-07-10 13:26 | ED_ITS ---
HPI - Chest Pain General Chief Complaint: Chest Pain Stated Complaint: CHEST PAIN Time Seen by Provider: 07/10/23 13:17 Source: patient Mode of arrival: walk-in Limitations: no limitations History of Present Illness HPI narrative: 38 year old male presents to the ED with c/o chest pain, constipation. Onset of the chest pain was yesterday. It is left-sided. He was evaluated here in the ED yesterday for the same complaints. He was sent home with [facility] for the constipation. States he had a large BM today which soiled his pants, causing him to miss dialysis. His last dialysis treatment was 07/08/23. Denies fever, chills, injury, SOB. He has hx 3 cardiac stents. He is noncompliant with his BP medication. Rates his pain 03/28 at this time. Related Data Home Medications Medication Instructions Recorded Confirmed aspirin 81 mg chewable tablet 04/02/23 atorvastatin 80 mg tablet mg 04/02/23 calcium acetate(phosphat bind) 667 mg 04/02/23 mg capsule carvedilol 25 mg tablet mg 04/02/23 clonidine HCl 0.1 mg tablet mg 04/02/23 clopidogrel 75 mg tablet mg 04/02/23 escitalopram oxalate 10 mg tablet mg 04/02/23 famotidine 20 mg tablet mg 04/02/23 furosemide 40 mg tablet mg 04/02/23 hydralazine 50 mg tablet mg 04/02/23 insulin glargine 100 unit/mL (3 unit subcut 04/02/23 mL) subcutaneous pen (Lantus Solostar U-100 Insulin) insulin lispro 100 unit/mL subcut 04/02/23 subcutaneous pen (Humalog KwikPen (U-100) Insulin) isosorbide mononitrate 60 mg mg PO 04/02/23 tablet,extended release 24 hr loratadine 10 mg tablet mg 04/02/23 omeprazole 40 mg capsule,delayed mg 04/02/23 release Previous Rx's Medication Instructions Recorded mhwhshfhsp-yylizsopyslyv-qzopvksb 1 cap PO Q8H PRN pain, headache 04/15/23 50 mg-300 mg-40 mg capsule #10 caps (Fioricet) hyoscyamine sulfate 0.125 mg 0.125 mg PO Q6H PRN abdominal pain 07/09/23 tablet (Levsin) #12 tabs ondansetron 4 mg disintegrating 4 mg PO Q6H PRN nausea and 07/09/23 tablet vomiting #12 tabs peg 3350-electrolytes 236 240 ml PO Q10M #4,000 mL 07/09/23 gram-22.74 gram-6.74 gram-5.86 gram solution (Golytely) Allergies Allergy/AdvReac Type Severity Reaction Status Date / Time No Known Drug Allergies Allergy Verified 07/10/23 13:09 Review of Systems ROS Constitutional Denies: fever or chills Ears, nose, mouth, and throat Denies: throat pain Cardiovascular Reports: chest pain; Denies: palpitations or edema Respiratory Denies: shortness of breath or cough Gastrointestinal Reports: abdominal pain and constipation; Denies: nausea, vomiting or diarrhea Musculoskeletal Reports: back pain Integumentary/Breast Denies: rash or itching Neurological Denies: headache or dizziness PFSH PFS Social History Smoking status: Heavy tobacco smoker Exam Constitutional Vital Signs, click to edit/add: Last Vital Signs Temp 98.4 F 07/10/23 13:09 Pulse 72 07/10/23 16:50 Resp 18 07/10/23 15:09 BP 168/75 H 07/10/23 16:50 Pulse Ox 97 07/10/23 16:50 O2 Del Method Room Air 07/10/23 13:09 Common normals: no apparent distress and oriented x3 General appearance: cooperative; not well kempt Eye Common normals: no scleral icterus Neck & C-Spine Common normals: supple Chest Chest: symmetrical chest wall rise Respiratory Common normals: normal respiratory effort Effort & inspection: able to speak in complete sentences and symmetric chest movement Auscultation: clear to auscultation bilaterally Cardio Rate: regular rate Rhythm: regular rhythm GI Common normals: Normal to inspection, nondistended, normoactive bowel sounds present and soft to palpation Neuro Common normals: oriented x3 Sensorium/orientation: awake and alert Course Vital Signs Vital signs: Vital Signs Temperature 98.4 F 07/10/23 13:09 Pulse Rate 80 07/10/23 13:09 Respiratory Rate 20 07/10/23 13:09 Blood Pressure 216/90 H 07/10/23 13:09 Pulse Oximetry 100 07/10/23 13:09 Oxygen Delivery Method Room Air 07/10/23 13:09 Temperature 98.4 F 07/10/23 13:09 Pulse Rate 72 07/10/23 16:50 Respiratory Rate 18 07/10/23 15:09 Blood Pressure 168/75 H 07/10/23 16:50 Pulse Oximetry 97 07/10/23 16:50 Oxygen Delivery Method Room Air 07/10/23 13:09 MDM - Chest Pain MDM Narrative Medical decision making narrative: The patient presented hypertensive. He was given clonidine and hydralazine with improvement. He did have a bowel movement here. His troponin was unremarkable today; he also had two negative troponin results yesterday. His potassium was unremarkable today. He will be discharged home. Return precautions were discussed. He was encouraged to take his home medications as directed. He was encouraged to go to his next dialysis as scheduled. Follow up with pcp and cardiology for a recheck, further evaluation and treatment. Medical Records Data Attestation: I reviewed the patient's medical records. Lab Data Attestation: I reviewed the patient's lab results. Labs: Lab Results 07/10/23 Range/Units 13:39 WBC 12.4 H (4.0-11.0) 10^3/uL RBC 3.44 L (4.70-6.10) 10^6/uL Hgb 10.8 L (14.0-18.0) g/dL Hct 31.8 L (42.0-54.0) % MCV 92.4 (80.0-94.0) fL MCH 31.4 (25.9-34.0) pg MCHC 34.0 (29.9-35.2) g/dL RDW 14.9 (11.0-15.0) % Plt Count 160 (150-450) 10^3/uL MPV 9.2 L (9.5-13.5) fL Neut % (Auto) 86.3 H (43.0-75.0) % Lymph % (Auto) 6.6 L (20.5-60.0) % [place] % (Auto) 5.4 (1.7-12.0) % Eos % (Auto) 0.8 L (0.9-7.0) % Baso % (Auto) 0.6 (0.2-2.0) % Neut # (Auto) 10.7 H (1.4-6.5) 10^3/uL Lymph # (Auto) 0.8 L (1.2-3.8) 10^3/uL [place] # (Auto) 0.7 (0.3-0.8) 10^3/uL Eos # (Auto) 0.1 (0.0-0.7) 10^3/uL Baso # (Auto) 0.1 (0.0-0.1) 10^3/uL Abs Immat Gran (auto) 0.04 H (0.00-0.03) 10^3/uL Imm/Tot Granulo (auto) 0.3 (0.0-0.5) % Sodium 136 (136-145) mmol/L Potassium 4.4 (3.5-5.1) mmol/L Chloride 97 L (98-107) mmol/L Carbon Dioxide 28.4 (21.0-32.0) mmol/L Anion Gap 15.0 BUN 37.0 H (7.0-18.0) mg/dL Creatinine 5.72 H* (0.70-1.30) mg/dL Est GFR ( Amer) 14 L (>=60) Est GFR (Non-Af Amer) 11 L (>=60) BUN/Creatinine Ratio 6.5 Glucose 148 H (74-106) mg/dL Calcium 8.7 (8.5-10.1) mg/dL Total Bilirubin 0.7 (0.2-1.0) mg/dL AST 13 L (15-37) U/L ALT 12 L (16-63) U/L Alkaline Phosphatase 83 (46-116) U/L Troponin I High Sens 47.3 (4.0-76.1) pg/mL Total Protein 6.9 (6.4-8.2) g/dL Albumin 3.2 L (3.4-5.0) g/dL Globulin 3.7 g/dL Albumin/Globulin Ratio 0.9 Imaging Data Chest x-ray: Attestation: I have reviewed the pertinent imaging results. Radiologist's impression: Procedure: XR chest 1V PROCEDURE: XR chest 1V DATE: 07/10/2023 1:00 PM ENGRAVER LETTER COMPARISONS: 01/08/2023 CLINICAL INDICATION: 38 years Male CP FINDINGS: The cardiomediastinal silhouette and pulmonary vasculature are within normal limits. The lungs are clear. There is no evidence of pleural effusion or pneumothorax. XR/XR chest 1V IMPRESSION: Chest radiograph is within normal limits. Electronically authenticated by: OUMOU MATTHEWS Date: 07/10/2023 14:35 ECG Data Attestation: ?I have reviewed the pertinent ECG results. (EKG was interpreted by the attending physician. It showed sinus rhythm at a rate of [address] segment changes. ) Interpretation: Measurements Intervals [place] Rate: 73 P: 60 CT: 324 QRS: 56 QRSD: 90 T: 217 QT: 386 QTc: 411 Interpretive Statements 1100 Sinus rhythm 2231 First degree AV block [address] depression 4564 Twave abnormality, possible lateral ischemia 6220 Possible left atrial enlargement 9150 abnormal ECG No previous ECG available for comparison Discharge Plan Discharge Chief Complaint: Chest Pain Clinical Impression: Atypical chest pain, Dialysis patient, Hypertension, Constipation Patient Disposition: Home, Self-Care Time of Disposition Decision: 16:49 Condition: Good Mode of Transportation: Private Vehicle Prescriptions / Home Meds: No Action hyoscyamine sulfate [Levsin] 0.125 mg tablet 0.125 mg PO Q6H PRN (Reason: abdominal pain) Qty: 12 0RF ondansetron 4 mg tablet,disintegrating 4 mg PO Q6H PRN (Reason: nausea and vomiting) Qty: 12 0RF peg 3350-electrolytes [Golytely] 236-22.74-6.74 -5.86 gram recon soln 240 ml PO Q10M Qty: 4000 0RF Rx Instructions: until fecal effluent is clear atorvastatin 80 mg tablet aspirin 81 mg tablet,chewable calcium acetate(phosphat bind) 667 mg capsule furosemide 40 mg tablet carvedilol 25 mg tablet clonidine HCl 0.1 mg tablet clopidogrel 75 mg tablet omeprazole 40 mg capsule,delayed release(DR/EC) isosorbide mononitrate 60 mg tablet extended release 24 hr PO famotidine 20 mg tablet hydralazine 50 mg tablet loratadine 10 mg tablet insulin lispro [Humalog KwikPen Insulin] 100 unit/mL insulin pen SUBCUT escitalopram oxalate 10 mg tablet insulin glargine [Lantus Solostar U-100 Insulin] 100 unit/mL (3 mL) insulin pen SUBCUT shqtwboduw-maqvhxzsnirii-kapf [Fioricet] 50-300-40 mg capsule 1 cap PO Q8H PRN (Reason: pain, headache) Qty: 10 0RF Instructions: Chest Pain (ED), Hypertension (ED) Stand Alone Forms: Portal Instructions Referrals: Rolando Kothari DO [Primary Care Provider] - 1 week Discharge Date/Time: 07/10/23 17:00
[2023-07-10 13:44] LABS: Basophils Absolute Auto 0.1 10^3/uL (0.0-0.1); Basophils Percent Auto 0.6 % (0.2-2.0); Eosinophils Absolute Auto 0.1 10^3/uL (0.0-0.7); Eosinophils Percent Auto 0.8 % (0.9-7.0); Hematocrit 31.8 % (42.0-54.0); Hemoglobin 10.8 g/dL (14.0-18.0); Immature Granulocytes Abs Auto 0.04 10^3/uL (0.00-0.03); Immature Granulocytes Pct Auto 0.3 % (0.0-0.5); Lymphocytes Absolute Auto 0.8 10^3/uL (1.2-3.8); Lymphocytes Percent Auto 6.6 % (20.5-60.0); Mean Corpuscular Hemoglobin 31.4 pg (25.9-34.0); Mean Corpuscular Volume 92.4 fL (80.0-94.0); Mean Platelet Volume 9.2 fL (9.5-13.5); Monocytes Absolute Auto 0.7 10^3/uL (0.3-0.8); Monocytes Percent Auto 5.4 % (1.7-12.0); Neutrophils Absolute Auto 10.7 10^3/uL (1.4-6.5); Neutrophils Percent Auto 86.3 % (43.0-75.0); Platelet Count 160 10^3/uL (150-450); Red Blood Count 3.44 10^6/uL (4.70-6.10); Red Cell Distribution Width 14.9 % (11.0-15.0); White Blood Count 12.4 10^3/uL (4.0-11.0)
[2023-07-10 14:03] LABS: Alanine Aminotransferase 12 U/L (16-63); Albumin Globulin Ratio 0.9; Albumin Level 3.2 g/dL (3.4-5.0); Alkaline Phosphatase 83 U/L (46-116); Aspartate Amino Transferase 13 U/L (15-37); BUN Creatinine Ratio 6.5; Bilirubin Total 0.7 mg/dL (0.2-1.0); Calcium 8.7 mg/dL (8.5-10.1); Carbon Dioxide 28.4 mmol/L (21.0-32.0); Chloride 97 mmol/L (98-107); Estimated GFR (African America 14 (>=60); Estimated GFR (Non-African Ame 11 (>=60); Globulin 3.7 g/dL; Glucose 148 mg/dL (74-106); Potassium 4.4 mmol/L (3.5-5.1); Sodium 136 mmol/L (136-145); Total Protein 6.9 g/dL (6.4-8.2); Troponin I High Sensitivity 47.3 pg/mL (4.0-76.1)
[2023-07-10] MEDS: ASPIRIN 81 MG TAB.CHEW 324 MG PO (15:14)
[2023-07-10] MEDS: CLONIDINE HCL 0.1 MG TABLET 0.2 MG PO (15:15)
[2023-07-10] MEDS: HYDRALAZINE HCL 20 MG/ML VIAL 10 MG IVP (16:19)
== END 2023-07-10 17:00 | disposition home or self-care (01) ==
PROVIDERS: Nurse Practitioner Family; Emergency Provider Emergency Medicine; PCP Internal Medicine
DX: R07.89 Other chest pain (principal); K59.00 Constipation, unspecified; I10 Essential (primary) hypertension; Z99.2 Dependence on renal dialysis; Z95.5 Presence of coronary angioplasty implant and graft; Z79.82 Long term (current) use of aspirin; Z79.899 Other long term (current) drug therapy; Z79.4 Long term (current) use of insulin; F17.210 Nicotine dependence, cigarettes, uncomplicated
CPT/HCPCS: 36415; 71045; 80053; 84484; 85025; 93005; 96374; 99285

== ENCOUNTER 2023-07-18 07:54 | Outpatient (OUT) | payer MEDICARE, MEDICAID, SELFPAY ==
[2023-07-19 09:09] LABS: Testosterone 408 ng/dL (264-916)
== END 2023-07-18 07:55 | disposition home or self-care (01) ==
PROVIDERS: PCP Internal Medicine; Visit Provider Internal Medicine
DX: I25.10 Atherosclerotic heart disease of native coronary artery without angina pectoris (principal); R68.82 Decreased libido
CPT/HCPCS: 36415; 84403

== ENCOUNTER 2023-07-29 08:45 | Outpatient (OUT) | payer MEDICARE, MEDICAID, SELFPAY ==
[2023-07-29 09:19] LABS: Basophils Absolute Auto 0.1 10^3/uL (0.0-0.1); Basophils Percent Auto 1.9 % (0.2-2.0); Eosinophils Absolute Auto 0.2 10^3/uL (0.0-0.7); Eosinophils Percent Auto 2.4 % (0.9-7.0); Hemoglobin 11.7 g/dL (14.0-18.0); Immature Granulocytes Abs Auto 0.01 10^3/uL (0.00-0.03); Immature Granulocytes Pct Auto 0.1 % (0.0-0.5); Lymphocytes Absolute Auto 1.5 10^3/uL (1.2-3.8); Lymphocytes Percent Auto 21.5 % (20.5-60.0); Mean Corpuscular HGB Conc 32.5 g/dL (29.9-35.2); Mean Corpuscular Volume 95.2 fL (80.0-94.0); Mean Platelet Volume 9.5 fL (9.5-13.5); Monocytes Absolute Auto 0.5 10^3/uL (0.3-0.8); Monocytes Percent Auto 6.6 % (1.7-12.0); Neutrophils Absolute Auto 4.6 10^3/uL (1.4-6.5); Neutrophils Percent Auto 67.5 % (43.0-75.0); Platelet Count 192 10^3/uL (150-450); Red Blood Count 3.78 10^6/uL (4.70-6.10); White Blood Count 6.8 10^3/uL (4.0-11.0)
[2023-07-29 09:29] LABS: Anion Gap 12.9; BUN Creatinine Ratio 7.1; Calcium 8.3 mg/dL (8.5-10.1); Carbon Dioxide 27.7 mmol/L (21.0-32.0); Chloride 101 mmol/L (98-107); Estimated GFR (African America 10 (>=60); Estimated GFR (Non-African Ame 9 (>=60); Glucose 161 mg/dL (74-106); Potassium 4.6 mmol/L (3.5-5.1); Sodium 137 mmol/L (136-145)
== END 2023-07-29 08:46 | disposition home or self-care (01) ==
PROVIDERS: PCP Internal Medicine
DX: N19 Unspecified kidney failure (principal)
CPT/HCPCS: 36415; 80048; 85025

== ENCOUNTER 2023-08-17 19:21 | Emergency (ER) | payer MEDICARE, MEDICAID, SELFPAY ==
[2023-08-17] VITALS (17 sets, daily range): BP systolic 148–220; BP diastolic 78–104; PULSE 66–96; RESP 12–18; TEMP 36.5; O2SAT 97–100; BMI 21.2
--- NOTE | 2023-08-17 19:28 | XR_ITS ---
The [address] [address] Patient Name: VIKTORIYA TAMAYO MRN: [id number] date: 1985 Sex: M Assigned Patient Location: ER Current Patient Location: ED.MAIN Accession/Order Number: [id number] Exam Date: 08/17/2023 19:35 Report Date: 08/17/2023 21:00 At the request of: TRISH PONCE Procedure: XR chest 1V CXR HISTORY: Chest pain. COMPARISON: 07/10/2023 TECHNIQUE: 1 view chest submitted for review. FINDINGS: The lungs are adequately expanded without evidence of acute infiltrate or effusion. The cardiac silhouette measures within normal. Pulmonary vascularity is unremarkable. Osseous structures do not demonstrate any acute abnormality. XR/XR chest 1V IMPRESSION: No plain film evidence for acute cardiopulmonary disease. Electronically authenticated by: RADHA MCCLAIN Date: 08/17/2023 21:00
--- NOTE | 2023-08-17 19:28 | ECG_ITS ---
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
--- NOTE | 2023-08-17 19:30 | ED_ITS ---
HPI - Chest Pain General Chief Complaint: Chest Pain Stated Complaint: CP ALL DAY Time Seen by Provider: 08/17/23 19:24 History of Present Illness HPI narrative: 38-year-old male presents for chest pain. He's had it on the left side of his chest continuously since about 3:00 PM, 4-1/2 hours ago. He states he passed out tonight just before coming into the emergency department as he walked into his house. He did not injure himself in any way. He has a history of coronary artery disease and states he has cardiac stents. He doesn't complain of fever or shortness of breath. The pain is moderate and continuous. Related Data Home Medications Medication Instructions Recorded Confirmed aspirin 81 mg chewable tablet 04/02/23 atorvastatin 80 mg tablet mg 04/02/23 calcium acetate(phosphat bind) 667 mg 04/02/23 mg capsule carvedilol 25 mg tablet mg 04/02/23 clonidine HCl 0.1 mg tablet mg 04/02/23 clopidogrel 75 mg tablet mg 04/02/23 escitalopram oxalate 10 mg tablet mg 04/02/23 famotidine 20 mg tablet mg 04/02/23 furosemide 40 mg tablet mg 04/02/23 hydralazine 50 mg tablet mg 04/02/23 insulin glargine 100 unit/mL (3 unit subcut 04/02/23 mL) subcutaneous pen (Lantus Solostar U-100 Insulin) insulin lispro 100 unit/mL subcut 04/02/23 subcutaneous pen (Humalog KwikPen (U-100) Insulin) isosorbide mononitrate 60 mg mg PO 04/02/23 tablet,extended release 24 hr loratadine 10 mg tablet mg 04/02/23 omeprazole 40 mg capsule,delayed mg 04/02/23 release Previous Rx's Medication Instructions Recorded iglljlsvvu-koeegrblhmuli-mxxbbaiw 1 cap PO Q8H PRN pain, headache 04/15/23 50 mg-300 mg-40 mg capsule #10 caps (Fioricet) hyoscyamine sulfate 0.125 mg 0.125 mg PO Q6H PRN abdominal pain 07/09/23 tablet (Levsin) #12 tabs ondansetron 4 mg disintegrating 4 mg PO Q6H PRN nausea and 07/09/23 tablet vomiting #12 tabs peg 3350-electrolytes 236 240 ml PO Q10M #4,000 mL 07/09/23 gram-22.74 gram-6.74 gram-5.86 gram solution (Golytely) Allergies Allergy/AdvReac Type Severity Reaction Status Date / Time No Known Drug Allergies Allergy Verified 08/17/23 19:23 Review of Systems ROS Narrative A ten point review of systems is negative except as noted above. PFSH PFSH Social History Smoking status: Current every day smoker Exam Narrative Exam Narrative: Nurses note and vital signs reviewed and patient is not hypoxic. General: The patient appears well and in no apparent distress. Patient is resting comfortably on cart. Skin: Warm, dry, no pallor noted. There is no rash noted. Head: Normocephalic, atraumatic Eye: Normal conjunctiva, no drainage Ears, Nose, Mouth, and Throat: oral mucosa is moist. Nares patent. Cardiovascular: Regular Rate and Rhythm Respiratory: Patient is in no distress, no accessory muscle use, lungs are clear to auscultation, no wheezing, rales or rhonchi; no crepitus or bruise or abrasion to the chest wall Back: non-tender GI: often nontender Musculoskeletal: The patient has no evidence of calf tenderness, no pitting edema, symmetrical pulses noted bilaterally Neurological: A&O, normal speech Psychiatric: Cooperative Constitutional Vital Signs, click to edit/add: Last Vital Signs Temp 97.7 F 08/17/23 19:24 Pulse 68 08/18/23 02:37 Resp 12 08/18/23 02:37 BP 132/70 08/18/23 02:37 Pulse Ox 98 08/18/23 02:37 O2 Del Method Room Air 08/18/23 02:37 Course Vital Signs Vital signs: Vital Signs Temperature 97.7 F 08/17/23 19:24 Pulse Rate 68 08/17/23 19:24 Respiratory Rate 14 08/17/23 19:24 Blood Pressure 202/92 H 08/17/23 19:24 Pulse Oximetry 100 08/17/23 19:24 Oxygen Delivery Method Room Air 08/17/23 19:24 Temperature 97.7 F 08/17/23 19:24 Pulse Rate 68 08/18/23 02:37 Respiratory Rate 12 08/18/23 02:37 Blood Pressure 132/70 08/18/23 02:37 Pulse Oximetry 98 08/18/23 02:37 Oxygen Delivery Method Room Air 08/18/23 02:37 MDM - Chest Pain MDM Narrative Medical decision making narrative: the patient has had persistent pain here and three troponins are within the normal range. He is a dialysis patient and has coronary artery disease with stents. Case discussed with hospitalist at [facility] and the patient will be transferred there. The patient is agreeable and stable for transfer. Differential Diagnosis Differential diagnosis: Likely pneumothorax, stable angina, unstable angina pectoris, atypical chest pain, st elevation myocardial infarction, costochondritis and chest pain Lab Data Attestation: I reviewed the patient's lab results. Labs: Lab Results 08/17/23 08/17/23 08/18/23 Range/Units 20:10 22:01 01:08 WBC 6.3 (4.0-11.0) 10^3/uL RBC 3.75 L (4.70-6.10) 10^6/uL Hgb 11.7 L (14.0-18.0) g/dL Hct 34.4 L (42.0-54.0) % MCV 91.7 (80.0-94.0) fL MCH 31.2 (25.9-34.0) pg MCHC 34.0 (29.9-35.2) g/dL RDW 12.9 (11.0-15.0) % Plt Count 97 L (150-450) 10^3/uL MPV 10.0 (9.5-13.5) fL Neut % (Auto) 66.5 (43.0-75.0) % Lymph % (Auto) 23.2 (20.5-60.0) % [place] % (Auto) 6.3 (1.7-12.0) % Eos % (Auto) 2.8 (0.9-7.0) % Baso % (Auto) 0.9 (0.2-2.0) % Neut # (Auto) 4.2 (1.4-6.5) 10^3/uL Lymph # (Auto) 1.5 (1.2-3.8) 10^3/uL [place] # (Auto) 0.4 (0.3-0.8) 10^3/uL Eos # (Auto) 0.2 (0.0-0.7) 10^3/uL Baso # (Auto) 0.1 (0.0-0.1) 10^3/uL Abs Immat Gran (auto) 0.02 (0.00-0.03) 10^3/uL Imm/Tot Granulo (auto) 0.3 (0.0-0.5) % Sodium 130 L (136-145) mmol/L Potassium 3.9 (3.5-5.1) mmol/L Chloride 96 L (98-107) mmol/L Carbon Dioxide 27.8 (21.0-32.0) mmol/L Anion Gap 10.1 BUN 36.0 H (7.0-18.0) mg/dL Creatinine 5.77 H* (0.70-1.30) mg/dL Est GFR ( Amer) 13 L (>=60) Est GFR (Non-Af Amer) 11 L (>=60) BUN/Creatinine Ratio 6.2 Glucose 149 H (74-106) mg/dL Calcium 8.7 (8.5-10.1) mg/dL Troponin I High Sens 48.5 48.5 55.3 (4.0-76.1) pg/mL Imaging Data Chest x-ray: Radiologist's impression: Procedure: XR chest 1V CXR HISTORY: Chest pain. COMPARISON: 07/10/2023 TECHNIQUE: 1 view chest submitted for review. FINDINGS: The lungs are adequately expanded without evidence of acute infiltrate or effusion. The cardiac silhouette measures within normal. Pulmonary vascularity is unremarkable. Osseous structures do not demonstrate any acute abnormality. IMPRESSION: No plain film evidence for acute cardiopulmonary disease. Electronically authenticated by: RADHA MCCLAIN Date: 08/17/2023 21:00 ECG Data Attestation: I personally reviewed and interpreted this ECG as follows: (EKG on my interpretation shows normal sinus rhythm with rate of 66 and flipped T waves and slight depression laterally. No ST segment elevation. This appears to be slightly more pronounced than EKGs taken July 12 and July 10) Heart Score History: Moderately Suspicious ECG: Sign. ST Depression Age: <45 years Risk Factors: >3 Risk Factors/ HX of CAD:2 Troponin: <Normal Limit Total Heart Score Recommendations & Risks:: 5 Discharge Plan Discharge Chief Complaint: Chest Pain Clinical Impression: Chest pain Patient Disposition: [facility] Time of Disposition Decision: 02:39 Discharge Location: [facility] Condition: Good Mode of Transportation: EMS
--- OUTSIDE RECORDS SUMMARY | 2023-08-17 20:13 | XMS_ITS | CCD ---
Demographics Address [address] [facility] [place] [address] Preferred Language en Marital Status Jain Affiliation Unknown Race White Ethnic Group Not or Lati no Author Name Unknown Address [address] [place] [address] Organization [facility] Care Team Providers Care Zinc Plater Name Role Phone Rolando Olivares Unavailable Unavailable Unavailable Angel Mejía Unavailable DO Rolando Olivares Primary Care Provider DO Denilson Gomez Attending Provider MD Angel Mejía Attending Provider DO Rolando Olivares Attending Provider MagalijarrodNancy Unavailable DO Rolando Olivares Primary Care Provider MD Angel Mejía Referring Provider DO Hector Mann Emergency Provider MD Angel Mejía Attending Provider [phone] MD Jorje Small Attending Provider MD Jorje Small Attending Provider MD Jorje Small Attending Provider DO Romain Roy Emergency Provider MD Rishi Chang Emergency Provider DO Rolando Olivares Primary Care Provider MD Angel Mejía Referring Provider DO Yobani Hansen Emergency Provider DO Rolando Olivares Primary Care Provider DO Hector Mann Emergency Provider MD Angel Mejía Attending Provider MD Jorje Small Attending Provider DO Romain Roy Emergency Provider Unabritt MD Angel Seymour Referring Provider MD Rishi Anderson Emergency Provider DO Yobani Hansen Emergency Provider DO Rolando Olivares Primary Care Provider DO Zeus Bradley Emergency Provider Rolando Olivares DO Primary Care Provider BRITTNI PAGAN Attending Unavailable ROLANDO OLIVARES Primary Care Unavailable CLARKE ALLEN Attending Unavailable ROLANDO OLIVARES Primary Care Unavailable DO Rolando Olivares Primary Care Provider MD Jorje Small Attending Provider [phone] MD Angel Mejía Attending Provider DO Denilson Gomez Attending Provider MD Cipriano Stiles Other Provider MD Tenzin Ortiz Jr Emergency Provider DO Isidoro Mesa Admit Provider [phone] DO Isidoro Mesa Attending Provider MD Nancy Haas Other Provider MD Law Cano Attending Provider DO Rolando Olivares Primary Care Provider ROLANDO OLIVARES Primary Care Physician DO Rolando Olivares Primary Care Provider MD Angel Mejía Referring Provider MD Jorje Small Attending Provider DR ADILSON VO Primary Care Unavailable MARSHALL, DR MARSHALL Attending Unavailable MARSHALL, DR MARSHALL Admitting Unavailable MARSHALL, DR MARSHALL Attending Unavailable MARSHALL, DR MARSHALL Consulting Unavailable MARSHALL, DR MARSHALL Admitting Unavailable TAVO, DR ADILSON Arreguin Primary Care Unavailable WEST, DR JEREL Miller Consulting Unavailable ANGEL MEJÍA Admitting Unavailable TAVO, DR ADILSON Arreguin Primary Care Unavailable ANGEL MEJÍA Attending Unavailable MD Jorje Small Attending Provider [phone] MD Romain Mendoza Attending Provider [phone] DO Rolando Olivares Primary Care Provider DO Rolando Olivares Primary Care Provider [phone] MD Angel Mejía Attending Provider DO Mickey Gr Emergency Provider DO Evert Renae Admit Provider DO Evert Renae Attending Provider TERE Benítez Other Provider Unavailable DO Denilson Gomez Other Provider MD Nery Najera Other Provider MD Elder Stewart Other Provider MD Iraida Byrd Other Provider MD Gerald Gross Other Provider JOSH Bob Other Provider MD Janine Gonzalez Other Provider [facility] Other Provider MD Avani Younger Other Provider [facility] Christy Almaraz Other Provider MD Jackie Ross Other Provider MD Ross Catherine Attending Provider DO Rolando Olivares Primary Care Provider Romain Mendoza Unavailable Unavailable Unavailable Rolando Olivares Unavailable Zina Childs Unavailable DO Rolando Olivares Primary Care Provider [phone] MD Angel Mejía Attending Provider MD Jorje Small Attending Provider MD Angel Mejía Referring Provider MD Romain Mendoza Attending Provider [phone] DO Mickey Gr Emergency Provider DO Evert Renae Admit Provider TERE Benítez Other Provider Unavailable DO Denilson Gmoez Other Provider MD Nery Najera Other Provider MD Elder Stewart Other Provider MD Iraida Byrd Other Provider MD Gerald Gross Other Provider JOSH Bob Other Provider MD Janine Gonzalez Other Provider MD David Glynnammed Najeeb Other Provider MD Avani Younger Other Provider [place] [facility] Christy Almaraz Other Provider MD Jackie Ross Other Provider MD Ross Catherine Attending Provider DO Denilson Gomez Attending Provider [phone] DAVION Childs Attending Provider DO Rolando Olivares Primary Care Provider MD Angel Mejía Attending Provider MD Angel Mejía Other Provider MD Romain Mendoza Attending Provider [phone] JOSH Grijalva Emergency Provider DO Rolando Olivares Primary Care Provider MD Angel Mejía Attending Provider MD Kim Renteria Admit Provider TERE Benítez Other Provider Unavailable DO Denilson Gomez Other Provider MD Nery Najera Other Provider MD Elder Stewart Other Provider MD Iraida Byrd Other Provider MD Gerald Gross Other Provider JOSH Bob Other Provider MD Janine Gonzalez Other Provider MD Mathew Glynn Najeeb Other Provider MD Avani Younger Other Provider [place] [facility] Other Provider [phone] MD Jackie Ross Other Provider MD Justino Boss Attending Provider Dr. Rolando Olivares [facility] Gomez, Dr. Elder López Referring Ericava ilmartina Olivares, Dr. Rolando [facility] Gomez, Dr. Elder López Attending Ericava ilmartina Gomez, Dr. Elder López Attending Ericava ilmartina Olivares, Dr. Rolando [facility] Gomez, Dr. Elder López Referring Eriacva ilmartina Olivares, Dr. Rolando La [facility] Gomez, Dr. Elder López Attending Ericava ilmartina Gomez, Dr. Elder López Referring Ericava ilmartina Olivares, Dr. Rolando [facility] Gomez, Dr. Elder López Referring Ericava ilmartina Gomez, Dr. Elder López Attending Ericava ilmartina Gomez, Dr. Elder López Attending Ericava ilmartina Olivares, Dr. Rolando [facility] Olivares, Dr. Rolando [facility] Gomez, Dr. Elder López Attending Fernando Olivares, Dr. Rolando [facility] Olivares, Dr. Rolando [facility] DO Rolando Meadows Primary Care Provider MD Angel Mejía Attending Provider DO Denilson Gomez Attending Provider [phone] MD Angel Mejía Other Provider MD Jorje Small Attending Provider Marshall, DO Marshall Primary Care Provider MD Romain Mendoza Attending Provider [phone] MD Jorje Small Attending Provider Marshall, DO Marshall Primary Care Provider DO Rolando Olivares Primary Care Provider MD Anegl Mejía Referring Provider MD Romain Mendoza Attending Provider DO Rolando Olivares Primary Care Provider [phone] MD Romain Mendoza Attending Provider Romain Mendoza Admitting Unavailabl e Romain Mendoza Attending Unavailabl e [place], Rolando Primary Care Unavailable Marshall, Rloando Primary Care Unavailable Angel Mejía Attending Unavailable Angel Mejía Admitting Unavailable Eliezer Grijalva Attending Unavailable Ball, Rolando Primary Care Unavailable Eliezer Grijalva Admitting Unavailable Ball, Rolando Primary Care Unavailable Angel Mejía Consulting Unavailable Denilson Gomez Admitting Unavailable Denilson Gomez Attending Unavailable Isidoro Mesa Admitting Unavailable Nancy Haas Consulting Unavailable Ball, Rolando Primary Care Unavailable Law Cano Attending Unavailable Ball, Rolando Primary Care Unavailable Ross Catherine Attending Unavailable Evert Renae Admitting Unavailable Nargis Benítez Consulting Unavailable Denilson Gomez Consulting Unavailable Nery Najera Consulting Unavailable Elder Stewart Consulting Unavail able Iraida Byrd Consulting Unavailable Gerald Gross Consulting Unavailab Chikis Harry Consulting Unavailable Janine Gonzalez Consulting Unavailable Mathew Glynn Consulting Unavailab Avani Finch Consulting Unavailable Christy Delarosa Consulting Unavailable Fidone, Jackie Herndon Consulting Unavailable Langenberg, Romain T Admitting Unavailabl e Langenberg, Romain T Attending Unavailabl e Ball, Rolando Primary Care Unavailable Langenberg, Romain T Admitting Unavailabl e Langenberg, Romain T Attending Unavailabl e Ball, Rolando Primary Care Unavailable Langenberg, Romain T Admitting Unavailabl e Langenberg, Romain T Attending Unavailabl e Ball, Rolando Primary Care Unavailable [place], Rolando Primary Care Unavailable Law Cano Attending Unavailable Law Cano Admitting Unavailable Joyce, Angel Referring Unavailable [facility] Rolando Primary Care Unavailable Joyce, Angel Attending Unavailable Joyce, Angel Admitting Unavailable [place], Rolando Primary Care Unavailable Cipriano Stiles Consulting Unavailable Denilson Gomez Admitting Unavailable Denilson Gomez Attending Unavailable [facility] Primary Care Unavailable Joyce, Angel Attending Unavailable Joyce, Angel Admitting Unavailable Marshall Rolando Primary Care Unavailable Denilson Gomez Attending Unavailable Denilson Gomez Admitting Unavailable Zina Childs Attending Unavailable [facility] Primary Care Unavailable Zina Childs Admitting Unavailable Langenberg, Romain T Admitting Unavailabl e Langenberg, Romain T Attending Unavailabl e [facility] Primary Care Unavailable [facility] Primary Care Unavailable Nargis Benítez Consulting Unavailable Justino Boss Attending Unavailable Kim Renteria Admitting Unavailable Denilson Gomez Consulting Unavailable Nery Najera Consulting Unavailable Elder Stewart Consulting Unavail able Iraida Byrd Consulting Unavailable Gerald Gross Consulting Unavailab Chikis Harry Consulting Unavailable Janine Gonzalez Consulting Unavailable Renard, Mathew Najeeb Consulting Unavailab Avani Finch Consulting Unavailable Christy Delarosa Consulting Unavailable Vandana, Jackie Herndon Consulting Unavailable Langenberg, Romain T Admitting Unavailabl e Langenberg, Romain T Attending Unavailabl e Ball, Rolando Primary Care Unavailable [facility] Primary Care Unavailable Denilson Gomez Attending Unavailable Denilson Gomez Admitting Unavailable Langenberg, Romain T Admitting Unavailabl e Langenberg, Romain T Attending Unavailabl e Ball, Rolando Primary Care Unavailable Langenberg, Romain T Admitting Unavailabl e Langenberg, Romain T Attending Unavailabl e Ball, Rolando Primary Care Unavailable Langenberg, Romain T Admitting Unavailabl e Reji, Romain Desir Attending Unavailabl e Marshall, Rolando Primary Care Unavailable Langkaley, Romain T Admitting Unavailabl e Reji, Romain T Attending Unavailabl e Marshall, Rolando Primary Care Unavailable Jorje Small Attending Unavailable Rolando Olivares Primary Care Unavailable Joyce, Angel Referring Unavailable Jorje Small Admitting Unavailable Marshall, Rolando Primary Care Unavailable Joyce, Angel Admitting Unavailable Joyce, Angel Attending Unavailable Denilson Gomez Admitting Unavailable Marshall, Rolando Primary Care Unavailable Denilson Gomez Attending Unavailable Reji, Romain Desir Admitting Unavailabl e Reji, Romain Desir Attending Unavailromeo e Marshall, Rolando Primary Care Unavailable Joyce, Angel Consulting Unavailable Mickey GUERIN [facility] Referring Unavailable DENISE BERG Attending Unavailable BRIGHT OLIVER Attending Unavailable Allergies Allergy Classification Reported Allergen(s) Allergy Type Date of Onset Reaction(s) Facility (3 sources) patient allergy list reviewed by nurse or physicia Propensity to adverse reactions 9 Comment:Done Shortlist Other (1 source) No Known Medication Allergies; Translations: [No Known Medication Allergies] Propensity to adverse reactions (disorder) [facility] Repository Medications Current Medications Medication Drug Class(es) Dates Sig (Normalized) Sig (Original) acetaZOLAMIDE 250 mg oral tablet (2 sources) Carbonic Anhydrase Inhibitor take 1 tablet by mouth every twenty-four hours acetaZOLAMIDE 250 MG 1 tablet Orally Once a day Active aspirin 81 mg chewable tablet (20 sources) Platelet Aggregation Inhibitor, Nonsteroidal Anti-inflammatory Drug Start: 11-17-2021 End: 09-10-2022 take 1 tablet by mouth once daily in the morning Aspirin (Children's Aspirin) 81 mg tablet,chewable Active 81 MG PO Every morning September 10, 2022 4:49pm take 1 tablet by mouth once maxim y Aspirin 81 81 MG 1 tablet Orally Once a day Active take 1 tablet by mouth once maxim y Aspirin 81 MG Oral Tablet Delayed Release TAKE 1 TABLET DAILY. Quantity: 90 Refills: 3 Ordered: 26-Feb-2023 Elder Gomez DO Active atorvastatin 80 mg oral tablet (20 sources) HMG-CoA Reductase Inhibitor Start: 11-17-2021 take 80 mg by mouth once daily in the evening Atorvastatin Active 80 MG PO Every evening November 16, 2021 11:00pm Start: 08-08-2021 End: 11-18-2021 take 40 mg by mouth once daily Atorvastatin Discontinu ed 40 MG PO Daily September 11, 2021 12:00am November 18, 2021 10:22am Aman SolomonRamiro (1 source) Start: 08-29-2022 Maryaglar KwikP en SubCutaneous, Daily Start Date: 08/29/22 Status: Ordered calcium acetate 667 mg oral tablet (13 sources) Start: 03-26-2023 Calcium Acetat e Active 667 MG PO As Directed March 25, 2023 11:00pm take 2 tablets by mouth every ei ght hours Calcium Acetate (Phos Binder) 667 MG 2 tablets with meals Orally Three times a day Active calcium carbonate 500 mg chewable tablet (20 sources) Start: 10-16-2022 take 1 tablet by mouth every eight hours Tums 500 MG 1 tablet Orally tid for 90 days Sep, Active take 2 tablets by mo uth three times daily at mealtime Tums 500 MG 2 tablet Orally TID with meal for 90 days Active carvedilol 25 mg oral tablet (20 sources) alpha-Adrenergic Juan Antonio, beta-Adrenergic Juan Antonio Start: 01-09-2023 take 1 tablet by mouth twice daily at mealtime Carvedilol (Coreg) 25 mg tablet Active 25 MG PO Twice daily 60 January 08, 2023 11:00pm must administer with a meal/food Start: 11-13-2021 End: 01-09-2023 take 12.5 mg by mouth twice daily Carvedilol Discontinued 12.5 MG PO Twice daily November 12, 2021 11:00pm January 09, 2023 4:58pm take 1 tablet by lang th every twenty-four hours Carvedilol 12.5 MG 1 tablet with food Orally ONCE A DAY Active cinnamon and chromium (1 source) Start: 08-10-2019 cinnamon and chromium cinnamon and chromium Start Date: 08/10/19 Status: Ordered clopidogrel 75 mg oral tablet (20 sources) [id number] Platelet Inhibitor Start: 11-17-2021 End: 09-10-2022 take 1 tablet by mouth once daily in the morning Clopidogrel (Plavix) 75 mg tablet Active 75 MG PO Every morning September 10, 2022 4:49pm CoQ10 (1 source) Start: 08-10-2019 take 1 mg by mouth once daily CoQ10 mg, Oral, Daily, Refills(s) 0 Start Date: 08/10/19 Status: Ordered Epoetin Alexus-Epbx (20 sources) Start: 04-09-2022 inject 53679 [IU] by subcutaneous injection every month Epoetin Alexus-Epbx (Retacrit) 20,000 unit/mL solution Active 96759 UNIT SUBCUT every month April 08, 2022 11:00pm Start: 04-09-2022 inject 16124 [IU] by subcutaneous injection every month Epoetin Alexus-Epbx (Retacrit) 20,000 unit/mL solution Active 11679 UNIT SUBCUT every month April 09, 2022 12:00am epoetin alexus-epbx 54074 UNT/ ML Injectable Solution [Retacrit] (20 sources) Retacrit 13093 U NIT/ML as directed Injection ONCE EVERY 4 WEEKS Not-Taking Retacrit 14625 U NIT/ML as directed Injection ONCE EVERY 4 WEEKS Active famotidine 20 mg oral tablet (20 sources) Histamine-2 Receptor Antagonist Start: 11-13-2021 take 1 tablet by mouth at bedtime Famotidine 20 MG Oral Tablet TAKE 1 TABLET AT BEDTIME. Quantity: 90 Refills: 3 Ordered: 24-Nov-2021 Elder Gomez DO Start : 24-Nov-2021 Active Start: 11-13-2021 take 40 mg by mouth once daily at bedtime Famotidine Active 40 MG PO Daily at bedtime November 12, 2021 11:00pm take 2 tablets by mo [facility] every twenty-four hours Famotidine 20 MG 2 tablets at bedtime as needed Orally Once a day Active furosemide 40 mg oral tablet (20 sources) Loop Diuretic Start: 08-29-[address] art Date: 08/29/22 Status: Ordered Start: 11-17-2021 End: 09-10-2022 take 40 mg by mouth once daily in the morning Furosemide Active 40 MG PO Every morning September 10, 2022 4:49pm take 2 tablets by mo [facility] every twenty-four hours Furosemide 40 MG 2 tablet Orally Once a day for 90 day(s) Active hydrALAZINE hydrochloride 50 mg oral tablet (20 sources) Arteriolar Vasodilator Start: 04-12-2023 take 50 mg by mouth once daily at bedtime Hydralazine Active 50 MG PO Daily at bedtime April 12, 2023 6:45am Start: 10-03-2022 End: 04-12-2023 take 50 mg by mouth three times daily Hydralazine Discontinued 50 MG PO Three times daily 90 October 03, 2022 12:00am April 12, 2023 6:45am Start: 08-29-2022 take 1 mg by mouth f our times daily hydrALAZINE 25 mg Tab mg tab(s), Oral, QID Start Date: 08/29/22 Status: Ordered Start: 11-18-2021 End: 10-03-2022 take 50 mg by mouth three times daily Hydralazine Discontinued 50 MG PO Three times daily 180 November 17, 2021 11:00pm October 03, 2022 6:01pm take 1 tablet by lang th three times daily hydrALAZINE HCl - 25 MG Oral Tablet TAKE 1 TABLET 3 TIMES DAILY. Quantity: 0 Refills: 0 Ordered: 21-Nov-2021 DO Active 3 ml insulin glargine 100 unt/ml pen injector (20 sources) Insulin Analog Start: 04-12-2023 inject 10 [IU] by subcutaneous injection once daily Insulin Glargine (Lantus Solostar U-100 Insulin) 100 unit/mL (3 mL) insulin pen Active 10 UNIT SUBCUT Daily April 11, 2023 11:00pm Start: 09-11-2021 insulin glargi ne (LANTUS SOLOSTAR, BASAGLAR KWIKPEN) 100 unit/mL (3 mL) Insulin Glargine (Basaglar Kwikpen U-100 Insulin) 100 unit/mL (3 mL) insulin pen Active 15 UNIT SUBCUT Daily September 11, 2021 10:23pm 0 09/11/2021 Active Start: 09-11-2021 End: 01-09-2023 Insulin Glargine (Basaglar K luiskpen U-100 Insulin) 100 unit/mL (3 mL) insulin pen Discontinued 12 UNIT SUBCUT Every morning September 11, 2021 12:00am January 09, 2023 1:53am Start: 09-11-2021 insulin glargi ne (LANTUS SOLOSTAR, BASAGLAR KWIKPEN) 100 unit/mL (3 mL) Insulin Glargine (Basaglar Kwikpen U-100 Insulin) 100 unit/mL (3 mL) insulin pen Active 15 UNIT SUBCUT Daily September 11, 2021 10:23pm 0 09/11/2021 Active Start: 09-11-2021 Insulin Glargi ne (Basaglar Kwikpen U-100 Insulin) 100 unit/mL (3 mL) insulin pen Active 20 UNIT SUBCUT Daily September 11, 2021 12:00am Comment on above: Insulin Glargine (Ba saglar Kwikpen U-100 Insulin) 100 unit/mL (3 mL) insulin pen Active 15 UNIT SUBCUT Daily September 11, 2021 10:23pm insulin lispro 100 unt/ml injectable solution (20 sources) Insulin Analog Start: 05-29-2022 Insulin Lispro (Humalog U-100 Insulin) 100 unit/mL Solution Active 1 sliding scale dose SUBCUT Use as Directed May 28, 2022 11:00pm Start: 05-24-2022 HumaLOG KwikPe n 100 UNIT/ML Subcutaneous Solution Pen- injector USE DIRECTED Quantity: 0 Refills: 0 Ordered: 24-May-2022 DO Start : 24-May-2022 Active HumaLOG 100 UNIT /ML as directed Injection SLIDING SCALE NEEDED Active HumaLOG KwikPen 100 UNIT/ML 1 (one) mL 2-10u SC AC based on insulin sliding scale, Insulin Sliding Scale before meals: BS 300 10u Active HumaLOG 100 UNIT /ML as directed Injection SLIDING SCALE NEEDED Active Insulin Lispro (Humalog U-10 0 Insulin) 100 unit/mL Solution (20 sources) Start: 05-29-2022 Insulin Lispro (Humalog U-100 Insulin) 100 unit/mL Solution Active 1 sliding scale dose SUBCUT Use as Directed May 28, 2022 11:00pm 15 to 1 Start: 05-29-2022 Insulin Lispro (Humalog U-100 Insulin) 100 unit/mL Solution Active 1 sliding scale dose SUBCUT Use as Directed May 29, 2022 12:00am 15 to 1 Start: 05-29-2022 Insulin Lispro (Humalog U-100 Insulin) 100 unit/mL Solution Active 1 sliding scale dose SUBCUT Use as Directed May 29, 2022 12:00am Start: 05-29-2022 Insulin Lispro (Humalog U-100 Insulin) 100 unit/mL Solution Active 1 sliding scale dose SUBCUT Use as Directed May 28, 2022 11:00pm Isosorbide Dinitrate (1 source) Nitrate Vasodilator Start: 08-29-2022 isosorbide dinitrate Oral Start Date: 08/29/22 Status: Ordered loratadine 10 mg oral tablet (20 sources) Start: 01-03-2023 Loratadine Act kalee 10 MG PO As Directed January 08, 2023 11:00pm Start: 01-03-2023 nitroglycerin 0.4 mg sublingual tablet (20 sources) Nitrate Vasodilator Start: 11-17-2021 Nitroglyce rin Active 0.4 MG SUBLINGUAL Every 5 minutes x 3 doses November 16, 2021 11:00pm Nitroglycerin 0. 4 MG as directed Sublingual Active omeprazole 40 mg delayed release oral capsule (20 sources) Proton Pump Inhibitor Start: 05-09-2022 take 40 mg by mouth once daily in the morning Omeprazole Active 40 MG PO Every morning May 08, 2022 11:00pm take 1 capsule by mouth once anupama ly Omeprazole 20 MG Oral Capsule Delayed Release TAKE 1 CAPSULE Daily Quantity: 30 Refills: 0 Ordered: 05-Jul-2022 DO Active retacrit 89914 unit/ml solution (1 source) Retacrit 13368 UNIT/ML as directed Injection ONCE EVERY 4 WEEKS Active sertraline 100 mg oral tablet (3 sources) Serotonin Reuptake Inhibitor Start: 3 take 1 tablet by mouth every twenty-four hours Sertraline HCl 100 MG 1 tablet Orally Once a day Jun, Active sodium zirconium cyclosilicate 26472 mg powder for oral suspension (7 sources) Start: 3 take 1 dose by mouth once daily Lokelma 10 GM 1 packet dissolved in water Orally Once a day for 30 day(s) Oct, Active Vitamin D (1 source) Start: 3 Vitamin D International_Unit, Oral, qWeek Start Date: 08/29/22 Status: Ordered Completed/Discontinued Medications Medication Drug Class(es) Dates Sig (Normalized) Sig (Original) amLODIPine 5 mg oral tablet (20 sources) Dihydropyridine Calcium Channel Juan Antonio Start: 08-21-2021 End: 11-18-2021 take 5 mg by mouth once daily Amlodipine Discontinued 5 MG PO Daily September 11, 2021 12:00am November 18, 2021 10:22am brimonidine tartrate 2 mg/ml ophthalmic solution (1 source) alpha-Adrenergic Agonist Start: 10-01-2021 take 1 drop(s) into the eye(s) three times daily brimonidine (ALPHAGAN) 0.2 % ophthalmic solution Use 1 Drop in the left eye three times daily for 7 days. 10 mL 0 10/01/2021 Active Comment on above: Use 1 Drop in the le ft eye three times daily for 7 days. dicyclomine hydrochloride 10 mg oral capsule (20 sources) Anticholinergic Start: 09-11-2021 End: 09-30-2021 take 10 mg by mouth twice daily Dicyclomine Discontinued 10 MG PO Twice daily September 11, 2021 12:00am September 30, 2021 11:14pm dorzolamide HCl/PF (DORZOLAMIDE, PF,) 2 % drop (2 sources) Start: 10-01-2021 take 1 drop(s) into the eye(s) three times daily dorzolamide HCl/PF (DORZOLAMIDE, PF,) 2 % drop Use 1 Drop in eyes three times daily. 10 mL 0 10/01/2021 Active Comment on above: Use 1 Drop in eyes t hree times daily. ergocalciferol 1.25 mg oral capsule (20 sources) Provitamin D2 Compound Start: 04-09-2022 End: 03-26-2023 take 1250 ug by mouth every week Ergocalciferol (Vitamin D2) Discontinued 1250 MCG PO every week April 08, 2022 11:00pm March 26, 2023 7:36am Start: 04-09-2022 take 1250 ug by mout h every week Ergocalciferol (Vitamin D2) Active 1250 MCG PO every week April 09, 2022 12:00am Start: 03-14-2022 take 1 capsule by mo uth every week Ergocalciferol 1.25 MG (30552 UT) 1 capsule Orally Q week for 90 day(s) Feb, Active take 1 capsule by mo uth every week Ergocalciferol 1.25 MG (61175 UT) 1 capsule Orally Q week for 90 day(s) Active escitalopram 10 mg oral tablet (20 sources) Serotonin Reuptake Inhibitor Start: 11-13-2021 End: 11-13-2021 Escitalopram Oxalate Discontinued MG TABLET November 12, 2021 11:00pm November 13, 2021 12:15am Start: 09-29-2021 take 10 mg by mouth once daily at bedtime Escitalopram Oxalate Active 10 MG PO Daily at bedtime November 12, 2021 11:00pm fluconazole 150 mg oral tablet (20 sources) Azole Antifungal Start: 09-11-2021 End: 09-30-2021 take 1 tablet by mouth once Fluconazole (Diflucan) 150 mg tablet Discontinued 150 MG PO Once September 11, 2021 12:00am September 30, 2021 11:14pm Take this medication on 09/14/2021 if you are still having burning with urination 24 hr isosorbide mononitrate 60 mg extended release oral tablet (20 sources) Nitrate Vasodilator Start: 02-07-2023 take 1 tablet by mouth twice daily Isosorbide Mononitrate ER 60 MG Oral Tablet Extended Release 24 Hour TAKE 1 TABLET BY MOUTH TWICE DAILY Quantity: 180 Refills: 3 Ordered: 07-Feb-2023 Elder Gomez DO Start : 07-Feb-2023 Active Start: 11-12-2022 End: 01-31-2023 take 60 mg by mouth twice daily Isosorbide Mononitrate Discontinued 60 MG PO Twice daily 120 January 08, 2023 11:00pm January 31, 2023 8:18am Start: 10-03-2022 End: 11-12-2022 take 60 mg by mouth once daily at bedtime Isosorbide Mononitrate Active 60 MG PO Daily at bedtime November 12, 2022 8:50am Start: 07-05-2022 End: 10-03-2022 take 30 mg by mouth once daily at bedtime Isosorbide Mononitrate Discontinued 30 MG PO Daily at bedtime July 09, 2022 12:00am October 03, 2022 6:01pm losartan potassium 25 mg oral tablet (20 sources) Angiotensin 2 Receptor Juan Antonio Start: 11-12-2022 End: 01-09-2023 take 25 mg by mouth twice daily Losartan Discontinued 25 MG PO Twice daily November 11, 2022 11:00pm January 09, 2023 1:54am Start: 08-29-2022 losartan Oral, Daily Start Date: 08/29/22 Status: Ordered Start: 08-08-2021 End: 06-03-2022 take 25 mg by mouth once daily Losartan Discontinued 2 5 MG PO Daily September 11, 2021 12:00am June 03, 2022 2:07pm 24 hr metFORMIN hydrochlorid e 500 mg extended release oral tablet (20 sources) Biguanide Start: 09-11-2021 metFORMIN ER ( GLUCOPHAGE XR) 500 mg 24 hr tablet Metformin Active 500 MG PO Twice daily September 11, 2021 10:23pm 0 09/11/2021 Active Start: 09-11-2021 End: 11-18-2021 take 500 mg by mouth twice daily Metformin Discontinued 500 MG PO Twice daily September 11, 2021 12:00am November 18, 2021 10:22am Start: 08-10-2019 take 1 mg by mouth once daily metformin 500 mg ER Tab mg tab(s), Oral, Daily, Refills(s) 0 Start Date: 08/10/19 Status: Ordered take 1 tablet by lang every twelve hours metFORMIN HCl 1000 MG 1 tablet with a meal Orally TWICE A DAY Active Comment on above: Metformin Active 500 MG PO Twice daily September 11, 2021 10:23pm ondansetron 4 mg oral tablet (20 sources) Serotonin-3 Receptor Antagonist Start: End: take 4 mg by mouth twice daily Ondansetron Hcl Discontinued 4 MG PO Twice daily 8 4 September 19, 2021 12:00am September 30, 2021 11:14pm Start: 09-11-2021 End: 09-30-2021 take 4 mg by mouth every six hours Ondansetron Discontinued 4 MG PO Q6H 7 September 11, 2021 12:00am September 30, 2021 11:14pm Comment on above: Take 4 mg by mouth e very 6 hours as needed. potassium chloride 10 meq extended release oral tablet (20 sources) Start: 11-17-2021 End: 04-09-2022 Potassium Chloride (Klor-Con 10) 10 mEq Tablet Extended Release Discontinued 10 MEQ PO Daily November 16, 2021 11:00pm April 09, 2022 10:50pm take 1 capsule by mo uth every twenty-four hours Potassium Chloride ER 10 MEQ 1 capsule with food Orally Once a day Active RETACRIT INJECTION (20 sources) Start: 02-11-2023 Start: 02-11-2023 RETACRIT INJEC TION Jan, 1000 mL Start: 01-03-2023 Start: 01-03-2023 RETACRIT INJEC TION December, 1000 mL Start: 12-06-2022 Start: 12-06-2022 RETACRIT INJEC TION Nov, 1000 mL Start: 04-20-2022 RETACRIT INJEC TION Apr, 1000 units Start: 04-20-2022 Start: 04-20-2022 RETACRIT INJEC TION Apr, 1000 U 12 hr timolol 5 mg/ml ophthalmic solution (2 sources) beta-Adrenergic Juan Antonio Start: 10-01-2021 timolol maleate (TIMOPTIC) 0.5 % ophthalmic solution Use 1 Drop in the left eye twice daily. 10 mL 0 10/01/2021 Active Comment on above: Use 1 Drop in the le ft eye twice daily. torsemide 20 mg oral tablet (20 sources) Loop Diuretic Start: 11-13-2021 End: 11-18-2021 take 60 mg by mouth once daily Torsemide Discontinued 60 MG PO Daily November 12, 2021 11:00pm November 18, 2021 10:22am take 3 tablets by mo uth every twenty-four hours Torsemide 20 MG 3 TABLETS Orally Once a day for 90 day(s) Active Problems Active Problems Problem Classification Problem Date Documented Date Episodic/Chronic Acute and unspecified renal failure (15 sources) Renal failure syndrome; Translations: [Unspecified kidney failure] Onset: 3 01-09-2023 Chronic Acute myocardial infarction (20 sources) Myocardial infarction; Translations: [Subendocardial infarction, initial episode of care] 11-13-2021 Chronic Anxiety disorders (20 sources) Generalized anxiety disorder; Translations: [Generalized anxiety disorder] Chronic Calculus of urinary tract (1 source) Kidney stone 08-29-2022 Episodic Chronic kidney disease (20 sources) Chronic kidney disease stage 3B ; Translations: [Stage 3b chronic kidney disease] Onset: 2 11-13-2021 Chronic Chronic kidney disease (20 sources) Chronic kidney disease; Translations: [Chronic kidney disease, stage III (moderate)] Onset: 2 Resolved: 2 Complication of device; implant or graft (9 sources) Arteriovenous fistula occlusion; Translations: [Other specified complication of vascular prosthetic devices, implants and grafts, initial encounter] Chronic Congestive heart failure; nonhypertensive (20 sources) Congestive heart failure; Translations: [Congestive heart failure, unspecified] Onset: 2 11-13-2021 Chronic Coronary atherosclerosis and other heart disease (20 sources) Coronary arteriosclerosis; Translations: [Coronary atherosclerosis of unspecified type of vessel, [place] or graft] Onset: 3 08-13-2022 Chronic Deficiency and other anemia (20 sources) Anemia of renal disease; Translations: [Anemia in chronic kidney disease] Chronic Deficiency and other anemia (16 sources) Anemia in chronic kidney disease; Translations: [Anemia in chronic kidney disease] Onset: 2 Resolved: 2 Chronic Deficiency and other anemia (20 sources) Anemia; Translations: [Anemia in chronic kidney disease] Chronic Deficiency and other anemia (20 sources) Anemia; Translations: [Anemia, unspecified] 10-01-2021 Episodic Diabetes mellitus with complications (20 sources) Renal disorder due to type 1 diabetes mellitus; Translations: [Type 1 diabetes mellitus with diabetic nephropathy] Onset: 2 Resolved: 2 Chronic Diabetes mellitus without complication (20 sources) Diabetes mellitus; Translations: [Diabetes mellitus without mention of complication, type II or unspecified type, not stated as uncontrolled] Onset: 9 11-14-2021 Chronic Diabetes mellitus without complication (2 sources) Glycosuria; Translations: [Glycosuria] Onset: 3 Episodic Disorders of lipid metabolism (20 sources) Hyperlipidemia; Translations: [Other and unspecified hyperlipidemia] Onset: 2 08-29-2022 Chronic Esophageal disorders (18 sources) Gastroesophageal reflux disease; Translations: [Gastro-esophageal reflux disease without esophagitis] Onset: 3 01-09-2023 Chronic Esophageal disorders (2 sources) Esophageal disorders; Translations: [Gastro-esophageal reflux disease with esophagitis, without bleeding] Essential hypertension (20 sources) Benign essential hypertension; Translations: [Benign essential hypertension] Onset: 2 11-13-2021 Chronic Glaucoma (20 sources) Raised intraocular pressure; Translations: [Ocular hypertension, unspecified eye] Onset: 2 10-01-2021 Chronic Headache; including migraine (1 source) Cluster headache 08-10-2019 Chronic Headache; including migraine (20 sources) Headache; Translations: [Headache] 05-22-2022 Episodic Hypertension with complications and secondary hypertension (20 sources) Chronic kidney disease due to hypertension; Translations: [Hypertensive chronic kidney disease with stage 1 through stage 4 chronic kidney disease, or unspecified chronic kidney disease] Onset: 2 Resolved: 2 Chronic Immunity disorders (20 sources) Polyclonal hypergammaglobulinemia; 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 Mood disorders (20 sources) Depressive disorder; Translations: [Recurrent major depressive episodes, mild ] Onset: 9 08-10-2019 Chronic Mycoses (20 sources) Renal tract candidiasis; Translations: [Other urogenital candidiasis] 09-11-2021 Episodic Nausea and vomiting (20 sources) Nausea and vomiting; Translations: [Nausea with vomiting, unspecified] 09-11-2021 Episodic Neoplasms of unspecified nature or uncertain behavior (20 sources) Monoclonal gammopathy of uncertain significance; Translations: [Monoclonal gammopathy] Onset: 2 05-09-2022 Chronic Nephritis; nephrosis; renal sclerosis (20 sources) Nephrotic syndrome; Translations: [Nephrotic syndrome with unspecified morphologic changes] Onset: 2 Resolved: 2 Chronic Osteoarthritis (1 source) Arthritis 08-29-2022 Chronic Other and ill-defined heart disease (1 source) Heart disease 08-29-2022 Chronic Other circulatory disease (20 sources) Acquired arteriovenous fistula aneurysm; Translations: [Arteriovenous fistula, acquired] Chronic Other circulatory disease (6 sources) Arteriovenous fistula, acquired Chronic Other circulatory disease (20 sources) H/O: heart disorder; Translations: [Personal history of other diseases of the circulatory system] 04-10-2022 Episodic Other connective tissue disease (20 sources) Muscle pain; Translations: [Myalgia, unspecified site] 09-19-2021 Episodic Other diseases of kidney and ureters (20 sources) Secondary hyperparathyroidism; Translations: [Secondary hyperparathyroidism of renal origin] Chronic Other diseases of kidney and ureters (12 sources) Secondary hyperparathyroidism of renal origin; Translations: [Secondary hyperparathyroidism of renal origin] Onset: 2 Resolved: 2 Chronic Other diseases of kidney and ureters (3 sources) Renal impairment; Translations: [Unspecified disorder of kidney and ureter] Episodic Other diseases of veins and lymphatics (5 sources) Peripheral venous insufficiency; Translations: [Venous insufficiency (chronic) (peripheral)] Episodic Other endocrine disorders (20 sources) Hypoglycemia; Translations: [Hypoglycemia, unspecified] 07-09-2022 Chronic Other eye disorders (20 sources) Hemorrhage of left vitreous body; Translations: [Vitreous hemorrhage, left eye] 10-01-2021 Chronic Other gastrointestinal disorders (2 sources) Pneumatosis cystoides intestinalis; Translations: [Other specified disorders of intestine] Episodic Other hematologic conditions (20 sources) Raised cardiac enzyme or marker; Translations: [Other specified abnormalities of plasma proteins] 11-13-2021 Episodic Other injuries and conditions due to external causes (20 sources) Hypothermia; Translations: [Hypothermia, initial encounter] 07-09-2022 Episodic Other injuries and conditions due to external causes (11 sources) Contusion; Translations: [Other injury of unspecified body region, initial encounter] 12-25-2022 Episodic Other lower respiratory disease (20 sources) Cough; Translations: [Cough] 05-22-2022 Episodic Other male genital disorders (10 sources) Induratio penis plastica; Translations: [Induration penis plastica] Onset: 3 Chronic Other male genital disorders (2 sources) Male erectile dysfunction, unspecified; Translations: [Erectile dysfunction] Onset: 3 Chronic Other male genital disorders (1 source) 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 Other male genital disorders (5 sources) Impotence of organic origin; Translations: [Male erectile dysfunction, unspecified] Chronic Other male genital disorders (3 sources) Erectile dysfunction co-occurrent and due to arterial insufficiency; Translations: [Erectile dysfunction due to arterial insufficiency] Chronic Other male genital disorders (1 source) Induration penis plastica Chronic Other male genital disorders (20 sources) Pain in scrotum ; Translations: [Scrotal pain] 10-14-2021 Episodic Other male genital disorders (5 sources) Hemospermia; Translations: [Hematospermia] Episodic Other nutritional; endocrine; and metabolic disorders (20 sources) Ketosis; Translations: [Other specified metabolic disorders] 09-19-2021 Chronic Other screening for suspected conditions (not mental disorders or infectious disease) (1 source) Patient encounter status; Translations: [Encounter for screening for other disorder] Episodic Other upper respiratory infections (5 sources) Acute maxillary sinusitis; Translations: [Acute maxillary sinusitis, unspecified] Episodic Residual codes; unclassified (20 sources) Edema, generalized; Translations: [Generalized edema] Onset: 2 11-13-2021 Episodic Residual codes; unclassified (20 sources) Peripheral edema; Translations: [Edema, unspecified] 10-14-2021 Episodic Residual codes; unclassified (20 sources) Left against medical advice; Translations: [Procedure and treatment not carried out because of patient's decision for other reasons] 06-03-2022 Episodic Residual codes; unclassified (16 sources) Body mass index 20-24 - normal; Translations: [Body Mass Index between 19-24, adult] Episodic Residual codes; unclassified (1 source) Decreased libido Episodic Respiratory failure; insufficiency; arrest (adult) (1 source) Respiratory failure; insufficiency; arrest (adult); Translations: [Hypertensive heart and chronic kidney disease with heart failure and stage 1 through stage 4 chronic kidney disease, or unspecified chronic kidney disease] Onset: 3 Substance-related disorders (20 sources) Smokes tobacco daily; Translations: [Tobacco use disorder] Chronic Comment on above: 3 cigs daily; 1-2 Packs of cigaret josé daily; 1 Pack of cigarettes daily; Unclassified (1 source) Asymptomatic microscopic hematuria 08-29-2022 Unclassified (1 source) Other specified complication of vascular prosthetic devices, implants and grafts, initial encounter; Translations: [Other specified complication of vascular prosthetic devices, implants and grafts, initial encounter] Onset: 3 Unclassified (1 source) Abrasion of left forearm, initial encounter; Translations: [Abrasion of left forearm, initial encounter] Onset: 3 Unclassified (1 source) Other mechanical complication of surgically created arteriovenous fistula, initial encounter; Translations: [Other mechanical complication of surgically created arteriovenous fistula, initial encounter] Onset: 3 Unclassified (1 source) Stenosis of other vascular prosthetic devices, implants and grafts, initial encounter; Translations: [Stenosis of other vascular prosthetic devices, implants and grafts, initial encounter] Onset: 3 Unclassified (1 source) Encounter for preprocedural laboratory examination; Translations: [Encounter for preprocedural laboratory examination] Onset: 3 Viral infection (20 sources) Disease caused by 2019-nCoV; Translations: [COVID-19] 09-19-2021 Episodic Viral infection (5 sources) Disease caused by 2019-nCoV; Translations: [COVID-19] Past or Other Problems Problem Classification Problem Date Documented Da te Episodic/Chronic Acute and unspecified renal failure (20 sources) Injury of kidney; Translations: [Acute kidney failure, unspecified] Onset: 08-13-2022 09-11-2021 Episodic Coronary atherosclerosis and other heart disease (6 sources) Presence of coronary angioplasty implant and graft; Translations: [Percutaneous transluminal coronary angioplasty status] Onset: 01-09-2023 01-09-2023 Episodic Deficiency and other anemia (20 sources) Anemia, unspecified; Translations: [Anemia, unspecified] Onset: 08-13-2022 08-13-2022 Episodic Fluid and electrolyte disorders (20 sources) Absolute hypovolemia; Translations: [Hypovolemia] Onset: 12-25-2022 09-19-2021 Episodic Genitourinary symptoms and ill-defined conditions (14 sources) Proteinuria, unspecified; Translations: [Proteinuria] Onset: 11-08-2021 Resolved: 03-29-2022 Episodic Malaise and fatigue (20 sources) Asthenia; Translations: [Weakness] Onset: 02-27-2019 06-13-2022 Episodic Nonspecific chest pain (20 sources) Chest pain; Translations: [Chest pain, unspecified] Onset: 08-13-2022 10-14-2021 Episodic Other circulatory disease (10 sources) History of cardiomyopathy; Translations: [Other postprocedural status] Resolved: 02-26-2023 Episodic Other circulatory disease (4 sources) H/O: angina pectoris; Translations: [Personal history of other diseases of circulatory system] Resolved: 02-26-2023 Episodic Other nervous system disorders (1 source) Personal history of other diseases of the nervous system and sense organs; Translations: [History of retinal detachment] Onset: 10-01-2021 Episodic Other skin disorders (1 source) Change in skin lesion; Translations: [Anemia in chronic kidney disease] Onset: 10-10-2022 Episodic Residual codes; unclassified (3 sources) Generalized edema; Translations: [GENERALIZED EDEMA] Onset: 10-25-2021 Episodic Spondylosis; intervertebral disc disorders; other back problems (5 sources) Low back pain; Translations: [Low back pain, unspecified] Onset: 02-27-2019 Episodic Syncope (20 sources) Syncope; Translations: [Syncope and collapse] Onset: 08-13-2022 08-13-2022 Episodic Results Test Name Value Interpretation Reference Range Facility Physician Referralon 023 Physician Referral [id number] Normal [facility] AV Fistulaon 07-03-2023 US AV Fistula Normal [facility] US AV Fistulaon 06-14-2023 AV Fistula Normal [facility] US AV Fistulaon 04-10-2023 AV Fistula Normal [facility] Alanine aminotransferase [En zymatic activity/volume] in Serum or PlasmaOrdered By: Haydee Lira on 03-12-2023 ALT [Catalytic activity/Vol] 13 U/L [facility] Albumin [Mass/volume] in Ser um or PlasmaOrdered By: Haydee Lira on 03-12-2023 Albumin [Mass/Vol] 2.9 g/dL 2.9-4.4 [facility] Albumin [Mass/volume] in Ser um or Plasma by Bromocresol green (BCG) dye binding methoOrdered By: Haydee Lira on 03-12-2023 Albumin BCG dye [Mass/Vol] 3.4 g/dL 3.5-5.[address] [facility] Albumin/Protein.total in 24 hour Urine by ElectrophoresisOrdered By: Haydee Lira on 03-12-2023 Albumin Elph (24H U) [Mass fraction] 58.9 % . [facility] Alkaline phosphatase [Enzyma tic activity/volume] in Serum or PlasmaOrdered By: Haydee Lira on 03-12-2023 ALP [Catalytic activity/Vol] 82 U/L 34-[address] [facility] Aspartate aminotransferase [ Enzymatic activity/volume] in Serum or PlasmaOrdered By: Haydee Lira on 03-12-2023 AST [Catalytic activity/Vol] 12 U/L 13-[address] [facility] Basophils Auto (Bld) [#/Vol] Ordered By: Haydee Lira on 03-12-2023 Basophils (Bld) [#/Vol] 0.1 10*3/uL 0.0-0.[address] [facility] Basophils/100 WBC Auto (Bld) Ordered By: Haydee Lira on 03-12-2023 Basophils/100 WBC (Bld) 1.7 % . [facility] Bilirubin.total [Mass/volume ] in Serum or PlasmaOrdered By: Haydee Lira on 03-12-2023 Bilirubin [Mass/Vol] 0.3 mg/dL 0.3-1.0 [facility] Calcium [Mass/volume] in Ser um or PlasmaOrdered By: Haydee Lira on 03-12-2023 Calcium [Mass/Vol] 8.0 mg/dL 8.6-10.3 [facility] Carbon dioxide, total [Moles /volume] in Serum or PlasmaOrdered By: Haydee Lira on 03-12-2023 CO2 [Moles/Vol] 28.8 mmol/L 21.0-31.0 [facility] Chloride [Moles/volume] in S gretta or PlasmaOrdered By: Haydee Lira on 03-12-2023 Chloride [Moles/Vol] 99 mmol/L 98-107 [facility] Complete Blood Count Auto Di ffon 03-12-2023 Basophils (Bld) [#/Vol] 0.1 10*3/uL Normal 0.0-0.[address] [facility] Comment on above: Result Comment: PERF ORMED BY:[place] [address] [place], [place] [id number] MEDICAL DIRECTORLEVY GILES M.D. Performed By: #### C BC, CMP ####[place] [address] [place]#### MELIDA SERUM, SPE, KAPPA ####[facility] , Basophils/100 WBC (Bld) 1.7 % Normal . [facility] Comment on above: Performed By: #### C BC, CMP ####[place] [address] [place]#### MELIDA SERUM, SPE, KAPPA ####[facility] , Eosinophils (Bld) [#/Vol] 0.1 10*3/uL Normal 0.0-0.[address] [facility] Comment on above: Performed By: #### C BC, CMP ####[place] [address] [place]#### MELIDA SERUM, SPE, KAPPA ####[facility] , Eosinophils/100 WBC (Bld) 2.3 % Normal . [facility] Comment on above: Performed By: #### C BC, CMP ####[place] [address] [place]#### MELIDA SERUM, SPE, KAPPA ####[facility] , Erythrocyte distribution width (RBC) [Ratio] 12.6 % Normal 12.0-14.[address] [facility] Comment on above: Performed By: #### C BC, CMP ####[place] [address] [place]#### MELIDA SERUM, SPE, KAPPA ####[facility] , Hematocrit (Bld) [Volume fraction] 27.5 % Low 38.8-50.[address] [facility] Comment on above: Performed By: #### C BC, CMP ####[place] [address] [place]#### MELIDA SERUM, SPE, KAPPA ####[facility] , Hemoglobin (Bld) [Mass/Vol] 9.5 g/dL Low 13.0-17.[address] [facility] Comment on above: Performed By: #### C BC, CMP ####[address]#### MELIDA SERUM, SPE, KAPPA ####[facility] , Lymphocytes (Bld) [#/Vol] 1.2 10*3/uL Normal 1.00-4.[address] [facility] Comment on above: Performed By: #### C BC, CMP ####[place] [address] [place]#### MELIDA SERUM, SPE, KAPPA ####[facility] , Lymphocytes/100 WBC (Bld) 19.5 % Normal . [facility] Comment on above: Performed By: #### C BC, CMP ####[place] [address] [place]#### MELIDA SERUM, SPE, KAPPA ####[facility] , MCH (RBC) [Entitic mass] 30.2 pg Normal 27.5-35.[address] [facility] Comment on above: Performed By: #### C BC, CMP ####[address]#### MELIDA SERUM, SPE, KAPPA ####[facility] , MCV (RBC) [Entitic vol] 87.2 fL Normal 83.5-101 [facility] Comment on above: Performed By: #### C BC, CMP ####[place] [address] [place]#### MELIDA SERUM, SPE, KAPPA ####[facility] , Mean Corpuscular HGB Conc 34.6 g/dL Normal 32.5-35.[address] [facility] Comment on above: Performed By: #### C BC, CMP ####[address] [place] [address] [place]#### MELIDA SERUM, SPE, KAPPA ####[facility] , Monocytes (Bld) [#/Vol] 0.3 10*3/uL Normal 0.0-0.[address] [facility] Comment on above: Performed By: #### C BC, CMP ####[place] [address] [place]#### MELIDA SERUM, SPE, KAPPA ####[facility] , Monocytes/100 WBC (Bld) 5.0 % Normal . [facility] Comment on above: Performed By: #### C BC, CMP ####[place] [address] [place]#### MELIDA SERUM, SPE, KAPPA ####[facility] , Neutrophils (Bld) [#/Vol] 4.4 10*3/uL Normal 1.8-7.[address] [facility] Comment on above: Performed By: #### C BC, CMP ####[place] [address] [place]#### MELIDA SERUM, SPE, KAPPA ####[facility] , Neutrophils/100 WBC (Bld) 71.5 % Normal . [facility] Comment on above: Performed By: #### C BC, CMP ####[place] [address] [place]#### MELIDA SERUM, SPE, KAPPA ####[facility] , NRBC% 0.0 /100{WBC} Normal 0-0.[address] [facility] Comment on above: Performed By: #### C BC, CMP ####[place] [address] [place]#### MELIDA SERUM, SPE, KAPPA ####[facility] , Platelet mean volume (Bld) [Entitic vol] 8.4 fL Normal 6.6-10.[address] [facility] Comment on above: Performed By: #### C BC, CMP ####[place] [address] [place] [id number] [place]#### MELIDA SERUM, SPE, KAPPA ####[facility] , Platelets (Bld) [#/Vol] 175 10*3/uL Normal 150-[address] [facility] Comment on above: Performed By: #### C BC, CMP ####[place] [id number] [place]#### MELIDA SERUM, SPE, KAPPA ####[facility] , RBC (Bld) [#/Vol] 3.15 10*6/uL Low 3.90-5.60 [facility] Comment on above: Performed By: #### C BC, CMP ####[place] [address] [place]#### MELIDA SERUM, SPE, KAPPA ####[facility] , WBC (Bld) [#/Vol] 6.1 10*3/uL Normal 4.1-10.5 [facility] Comment on above: Performed By: #### C BC, CMP ####[place] [address] [place]#### MELIDA SERUM, SPE, KAPPA ####[facility] , Comprehensive Metabolic Pane elvin 03-12-2023 Albumin [Mass/Vol] 3.4 g/dL Low 3.5-5.7 [facility] Comment on above: Performed By: #### C BC, CMP ####[place] [id number] [place]#### MELIDA SERUM, SPE, KAPPA ####[facility] , Albumin/Globulin [Mass ratio] 1.3 {ratio} Normal [facility] Comment on above: Performed By: #### C BC, CMP ####[place] [id number] [place]#### MELIDA SERUM, SPE, KAPPA ####[facility] , ALP [Catalytic activity/Vol] 82 U/L Normal 34-[address] [facility] Comment on above: Performed By: #### C BC, CMP ####[place] [address] [place] [address] [place]#### MELIDA SERUM, SPE, KAPPA ####[facility] , ALT [Catalytic activity/Vol] 13 U/L Normal 7-[address] [facility] Comment on above: Performed By: #### C BC, CMP ####[place] [id number] [place]#### MELIDA SERUM, SPE, KAPPA ####[facility] , Anion gap [Moles/Vol] 12.6 mmol/L Normal 6.0-15.0 [facility] Comment on above: Performed By: #### C BC, CMP ####[place] [address] [place]#### MELIDA SERUM, SPE, KAPPA ####[facility] , AST [Catalytic activity/Vol] 12 U/L Low 13-[address] [facility] Comment on above: Performed By: #### C BC, CMP ####[place] [address] [place]#### MELIDA SERUM, SPE, KAPPA ####[facility] , Bilirubin [Mass/Vol] 0.3 mg/dL Normal 0.3-1.0 [facility] Comment on above: Performed By: #### C BC, CMP ####[place] [id number] [place]#### MELIDA SERUM, SPE, KAPPA ####[facility] , Calcium [Mass/Vol] 8.0 mg/dL Low 8.6-10.3 [facility] Comment on above: Performed By: #### C BC, CMP ####[place] [address] [place]#### MELIDA SERUM, SPE, KAPPA ####[facility] , Chloride [Moles/Vol] 99 mmol/L Normal 98-107 [facility] Comment on above: Performed By: #### C BC, CMP ####[place] [address] [place]#### MELIDA SERUM, SPE, KAPPA ####[facility] , CO2 [Moles/Vol] 28.8 mmol/L Normal 21.0-31.0 [facility] Comment on above: Performed By: #### C BC, CMP ####[place] [address] [place]#### MELIDA SERUM, SPE, KAPPA ####[facility] , Creatinine [Mass/Vol] 4.29 mg/dL High 0.70-1.30 [facility] Comment on above: Performed By: #### C BC, CMP ####[address]#### MELIDA SERUM, SPE, KAPPA ####[facility] , Creatinine Clr Calc Pharmacy 25.39 [facility] Comment on above: Result Comment: PERF ORMED BY:[address] [place] [phone] MEDICAL LEONELA GILES M.D. Performed By: #### C BC, CMP ####[place] [address] [place]#### MELIDA SERUM, SPE, KAPPA ####[facility] , GFR/1.73 sq M.predicted MDRD (S/P/Bld) [Vol rate/Area] 17.210 mL/min/{1.73_m2} [facility] Comment on above: Performed By: #### C BC, CMP ####[place] [address] [place]#### MELIDA SERUM, SPE, KAPPA ####[facility] , Globulin (S) [Mass/Vol] 2.6 g/dL Normal [facility] Comment on above: Performed By: #### C BC, CMP ####[address]#### MELIDA SERUM, SPE, KAPPA ####[facility] , Glucose [Mass/Vol] 358 mg/dL High 70-100 [facility] Comment on above: Result Comment: [facility] Glucose Reference Range is dependent on time and content of last meal. Glucose of more than 200 mg/dL in a nonstressed, ambulatory subject supports the diagnosis of Diabetes Mellitus. ADA recommended reference range Performed By: #### C BC, CMP ####[place] [address] [place]#### MELIDA SERUM, SPE, KAPPA ####[facility] , Potassium [Moles/Vol] 4.4 mmol/L Normal 3.5-5.1 [facility] Comment on above: Performed By: #### C BC, CMP ####[place] [address] [place]#### MELIDA SERUM, SPE, KAPPA ####[facility] , Protein [Mass/Vol] 6.0 g/dL Low 6.4-8.9 [facility] Comment on above: Performed By: #### C BC, CMP ####[place] [address] [place]#### MELIDA SERUM, SPE, KAPPA ####[facility] , Sodium [Moles/Vol] 136 mmol/L Normal 136-145 [facility] Comment on above: Performed By: #### C BC, CMP ####[place] [address] [place]#### MELIDA SERUM, SPE, KAPPA ####[facility] , Urea nitrogen [Mass/Vol] 43 mg/dL High 03-[address] [facility] Comment on above: Performed By: #### C BC, CMP ####[facility] [id number] [place] [address] [facility]#### MELIDA SERUM, SPE, KAPPA ####[facility] , Creatinine [Mass/volume] in Serum or PlasmaOrdered By: Haydee Lira on 03-12-2023 Creatinine [Mass/Vol] 4.29 mg/dL 0.70-1.30 [facility] Eosinophils Auto (Bld) [#/Vo l]Ordered By: Haydee Lira on 03-12-2023 Eosinophils (Bld) [#/Vol] 0.1 10*3/uL 0.0-0.[address] [facility] Eosinophils/100 WBC Auto (Bl d)Ordered By: Haydee Lira on 03-12-2023 Eosinophils/100 WBC (Bld) 2.3 % . [facility] Erythrocyte distribution wid th Auto (RBC) [Ratio]Ordered By: Haydee Lira on 03-12-2023 Erythrocyte distribution width (RBC) [Ratio] 12.6 % 12.0-14.[address] [facility] Fr [place]/Lambda LTC Urineon 03-12-2023 Free [place] Light Chains, Urine 206.55 mg/L High 1.17-86.[address] [facility] Comment on above: Performed By: #### F R KAPPA+L ####[facility] , Free Lambda Lt Chains, Urine 68.24 mg/L High 0.27-15.[address] [facility] Comment on above: Performed By: #### F R KAPPA+L ####[facility] , [place]/Lambda Ratio 24 Hr Ur 3.03 Normal 1.83-14.[address] [facility] Comment on above: Result Comment: Perf ormed at: BN - [facility] [address] [id number] Stemhole Borer: Saulo Araujo MD, Phone: [phone] BY:[facility] [place], [place] [phone] MEDICAL DIRECTORLEVY GILES M.D. Performed By: #### F R KAPPA+L ####[facility] , Free K+L LT Chains, Qn, Son 03-12-2023 Free [place] Light Chains, S 166.7 mg/L High 3.3-19.[address] [facility] Comment on above: Performed By: #### C BC, CMP ####[address]#### MELIDA SERUM, SPE, KAPPA ####[facility] , Free Lambda Light Chains, S 108.0 mg/L High 5.7-26.[address] [facility] Comment on above: Performed By: #### C BC, CMP ####[address]#### MELIDA SERUM, SPE, KAPPA ####[facility] , [place]/Lambda Ratio, S 1.54 Normal 0.26-1.65 [facility] Comment on above: Result Comment: Perf ormed at: - [facility] [place] [id number] Stemhole Borer: Pablito Alexander PhD, Phone: [phone] BY:[place] [address] [place], [place] [phone] MEDICAL DIRECTORLEVY GILES M.D. Performed By: #### C BC, CMP ####[place] [address] [place]#### MELIDA SERUM, SPE, KAPPA ####[facility] , Gamma globulin/Protein.total in 24 hour Urine by ElectrophoresisOrdered By: Haydee Lira on 03-12-2023 Gamma globulin Elph (24H U) [Mass fraction] 14.7 % . [facility] Globulin Calc (S) [Mass/Vol] Ordered By: Haydee Lira on 03-12-2023 Globulin (S) [Mass/Vol] 2.6 g/dL [facility] Glucose [Mass/volume] in Ser um or PlasmaOrdered By: Haydee Lira on 03-12-2023 Glucose [Mass/Vol] 358 mg/dL 70-100 [facility] Comment on above: ADA recommended refe rence rangeRandom Glucose Reference Range is dependent on time and content of last meal. Glucose of more than 200 mg/dL in a nonstressed, ambulatory subject supports the diagnosis of Diabetes Mellitus. Hematocrit Auto (Bld) [Volum e fraction]Ordered By: Haydee Lira on 03-12-2023 Hematocrit (Bld) [Volume fraction] 27.5 % 38.8-50.[address] [facility] Hemoglobin [Mass/volume] in BloodOrdered By: Haydee Lira on 03-12-2023 Hemoglobin (Bld) [Mass/Vol] 9.5 g/dL 13.0-17.[address] [facility] IgA [Mass/volume] in Serum o r PlasmaOrdered By: Haydee Lira on 03-12-2023 IgA [Mass/Vol] 307 mg/dL 90-[address] [facility] IgG [Mass/volume] in Serum o r PlasmaOrdered By: Haydee Lira on 03-12-2023 IgG [Mass/Vol] 1059 mg/dL 603-[address] [facility] IgM [Mass/volume] in Serum o r PlasmaOrdered By: Haydee Lira on 03-12-2023 IgM [Mass/Vol] 160 mg/dL 20-[address] [facility] Immunofixation,Serumon 03-12 Immun[facility], Serum Comment: Normal . [facility] Comment on above: Result Comment: Pres ence of monoclonal protein is unclear at this time. Suggest repeat in 3 to 6 months if clinically indicated. Performed By: #### C BC, CMP ####[facility] [id number] [place] [address] [facility]#### MELIDA SERUM, SPE, KAPPA ####[facility] , Immunoglobulin A, Serum 307 mg/dL Normal 90-386 [facility] Comment on above: Performed By: #### C BC, CMP ####[facility] [id number] [place] [id number] [place]#### MELIDA SERUM, SPE, KAPPA ####[facility] , Immunoglobulin G 1059 mg/dL Normal 603-1613 [facility] Comment on above: Performed By: #### C BC, CMP ####[facility] [id number] [place] [id number] [place]#### MELIDA SERUM, SPE, KAPPA ####[facility] , Immunoglobulin M, Serum 160 mg/dL Normal 20-172 [facility] Comment on above: Performed By: #### C BC, CMP ####[facility] [id number] [place] [id number] [place]#### MELIDA SERUM, SPE, KAPPA ####[facility] , Immunoglobulin light chains. kappa.free [Mass/volume] in SerumOrdered By: Haydee Lira on 03-12-2023 Immunoglobulin light chains.kappa.free (S) [Mass/Vol] 166.7 mg/L 3.3-19.[address] [facility] Immunoglobulin light chains. kappa.free/Immunoglobulin light chains.lambda.free [MassOrdered By: Haydee Lira on 03-12-2023 Immunoglobulin light chains.kappa.free/Immun oglobulin light chains.lambda.free (S) [Mass ratio] 1.54 0.26-1.[address] [facility] Comment on above: Performed at: [address] [id number] Director: Pablito Alexander PhD, Phone: [phone] Immunoglobulin light chains. lambda.free [Mass/volume] in Serum or PlasmaOrdered By: Haydee Lira on 03-12-2023 Immunoglobulin light chains.lambda.free [Mass/Vol] 108.0 mg/L 5.7-26.[address] [facility] [place] light chains.free [Mas s/volume] in UrineOrdered By: Jorje Small on 03-12-2023 Immunoglobulin light chains.kappa.free (U) [Mass/Vol] 206.55 mg/L 1.17-86.[address] [facility] [place] light chains.free/[place] light chains.free [Mass Ratio] in UrineOrdered By: Jorje Small on 03-12-2023 Immunoglobulin light chains.kappa.free/Immun oglobulin light chains.lambda.free (U) [Mass ratio] 3.03 1.83-14.[address] [facility] Comment on above: Performed at: [address] [id number] Director: Saulo Araujo MD, Phone: [phone] Lambda light chains.free [Ma ss/volume] in UrineOrdered By: Jorje Small on 03-12-2023 Immunoglobulin light chains.lambda.free (U) [Mass/Vol] 68.24 mg/L 0.27-15.[address] [facility] Leukocytes [#/volume] correc celena for nucleated erythrocytes in Blood by Automated counOrdered By: Haydee Lira on 03-12-2023 WBC corrected for nucl RBC Auto (Bld) [#/Vol] 6.1 10*3/uL 4.1-10.[address] [facility] Lymphocytes Auto (Bld) [#/Vo l]Ordered By: Haydee Lira on 03-12-2023 Lymphocytes (Bld) [#/Vol] 1.2 10*3/uL 1.00-4.[address] [facility] Lymphocytes/100 WBC Auto (Bl d)Ordered By: Haydee Lira on 03-12-2023 Lymphocytes/100 WBC (Bld) 19.5 % . [facility] MCH Auto (RBC) [Entitic mass ]Ordered By: Haydee Lira on 03-12-2023 MCH (RBC) [Entitic mass] 30.2 pg 27.5-35.[address] [facility] MCHC Auto (RBC) [Mass/Vol]Or dered By: Haydee Lira on 03-12-2023 MCHC (RBC) [Mass/Vol] 34.6 g/dL 32.5-35.6 [facility] MCV Auto (RBC) [Entitic vol] Ordered By: Haydee Lira on 03-12-2023 MCV (RBC) [Entitic vol] 87.2 fL 83.5-101 [facility] Monocytes Auto (Bld) [#/Vol] Ordered By: Haydee Lira on 03-12-2023 Monocytes (Bld) [#/Vol] 0.3 10*3/uL 0.0-0.[address] [facility] Monocytes/100 WBC Auto (Bld) Ordered By: Haydee Lira on 03-12-2023 Monocytes/100 WBC (Bld) 5.0 % . [facility] Neutrophils Auto (Bld) [#/Vo l]Ordered By: Haydee Lira on 03-12-2023 Neutrophils (Bld) [#/Vol] 4.4 10*3/uL 1.8-7.[address] [facility] Neutrophils/100 WBC Auto (Bl d)Ordered By: Haydee Lira on 03-12-2023 Neutrophils/100 WBC (Bld) 71.5 % . [facility] No Panel InformationOrdered By: Haydee Lira on 03-12-2023 Estimated GFR (CKD-EPI) 17.210 mL/Min [facility] Creatinine Clearance (Chem 25.[address] [facility] Protein Electrophoresis [place] Not observed g/dL Not Observed [facility] Protein Electrophoresis Note See comment . [facility] Comment on above: Protein electrophore sis scan will follow via computer,mail, or manager photography delivery.Performed at: [facility] [address] [place] [id number] Director: Pablito Alexander PhD, Phone: [phone] Serum Immunofixation Comment: . [facility] Comment on above: Presence of monoclon al protein is unclear at this time. Suggestrepeat in 3 to 6 months if clinically indicated. Urine Random Prot Electrophor Note See comment . [facility] Comment on above: Protein electrophore sis scan will follow via computer,mail, or manager photography delivery.Performed at: [facility] [employer] [place], [place] [id number] Director: Pablito Alexander PhD, Phone: [phone] Nucleated erythrocytes [Pres ence] in Blood by Automated countOrdered By: Haydee Lira on 03-12-2023 Nucleated RBC Auto Ql (Bld) 0.0 /100{WBC} 0-0.[address] [facility] Platelet mean volume Auto (B ld) [Entitic vol]Ordered By: Haydee Lira on 03-12-2023 Platelet mean volume (Bld) [Entitic vol] 8.4 fL 6.6-10.[address] [facility] Platelets Auto (Bld) [#/Vol] Ordered By: Haydee Lira on 03-12-2023 Platelets (Bld) [#/Vol] 175 10*3/uL 150-[address] [facility] Potassium [Moles/volume] in Serum or PlasmaOrdered By: Haydee Lira on 03-12-2023 Potassium [Moles/Vol] 4.4 mmol/L 3.5-5.1 [facility] Protein Electro, Random Urin gamal 03-12-2023 Albumin, Urine 58.9 % Normal . [facility] Comment on above: Performed By: #### U PE RAND ####[facility] , Kkbyx-4-Fuvrkpyt, Urine 7.3 % Normal . [facility] Comment on above: Performed By: #### U PE RAND ####[facility] , Ghljj-4-Dvuiczlw, Urine 6.5 % Normal . [facility] Comment on above: Performed By: #### U PE RAND ####[facility] , Beta Globulin, Urine 12.5 % Normal . [facility] Comment on above: Performed By: #### U PE RAND ####[facility] , Gamma Globulin, Urine 14.7 % Normal . [facility] Comment on above: Performed By: #### U PE RAND ####[facility] , [place] % Not Observed Normal Not Observed [facility] Comment on above: Performed By: #### U PE RAND ####[facility] , Please Note: Normal . [facility] Comment on above: Result Comment: Prot ein electrophoresis scan will follow via computer, mail, or manager photography delivery. Performed at: [address] [id number] Stemhole Borer: Pablito Alexander PhD, Phone: [phone] BY:[address] [place], [place] [phone] MEDICAL DIRECTORLEVY GILES M.D. Performed By: #### U PE RAND ####[facility] , Protein (U) [Mass/Vol] 468.8 mg/dL Normal Not Estab. [facility] Comment on above: Result Comment: Resu lts confirmed on dilution. Performed By: #### U PE RAND ####[facility] , Protein Electrophoresis, Ser umon 03-12-2023 Albumin [Mass/Vol] 2.9 g/dL Normal 2.9-4.4 [facility] Comment on above: Performed By: #### C BC, CMP ####[address]#### MELIDA SERUM, SPE, KAPPA ####[facility] , Albumin/Globulin [Mass ratio] 1.0 {ratio} Normal 0.7-1.[address] [facility] Comment on above: Performed By: #### C BC, CMP ####[facility] [place] [address] [place]#### MELIDA SERUM, SPE, KAPPA ####[facility] , Goqti-2-Pzlhkses 0.2 g/dL Normal 0.0-0.4 [facility] Comment on above: Performed By: #### C BC, CMP ####[facility] [place] [address] [place]#### MELIDA SERUM, SPE, KAPPA ####[facility] , Njeyq-3-Agalpnfl 0.7 g/dL Normal 0.4-1.0 [facility] Comment on above: Performed By: #### C BC, CMP ####[place] [address] [place]#### MELIDA SERUM, SPE, KAPPA ####[facility] , Beta Globulin 0.8 g/dL Normal 0.7-1.[address] [facility] Comment on above: Performed By: #### C BC, CMP ####[place] [address] [place]#### MELIDA SERUM, SPE, KAPPA ####[facility] , Gamma Globulin 1.1 g/dL Normal 0.4-1.[address] [facility] Comment on above: Performed By: #### C BC, CMP ####[place] [address] [place]#### MELIDA SERUM, SPE, KAPPA ####[facility] , Globulin (S) [Mass/Vol] 2.8 g/dL Normal 2.2-3.9 [facility] Comment on above: Performed By: #### C BC, CMP ####[place] [address] [place]#### MELIDA SERUM, SPE, KAPPA ####[facility] , M-[place] Not Observed Normal Not Observed [facility] Comment on above: Performed By: #### C BC, CMP ####[place] [address] [place]#### MELIDA SERUM, SPE, KAPPA ####[facility] , Protein [Mass/Vol] 5.7 g/dL Low 6.0-8.5 [facility] Comment on above: Performed By: #### C BC, CMP ####[place] [address] [place]#### MELIDA SERUM, SPE, KAPPA ####[facility] , SPE-Note Normal . [facility] Comment on above: Result Comment: Prot ein electrophoresis scan will follow via computer, mail, or manager photography delivery. Performed at: - [facility] [address] [id number] Stemhole Borer: Pablito Alexander PhD, Phone: [phone] Performed By: #### C BC, CMP ####[facility] [id number]#### MELIDA SERUM, SPE, KAPPA ####[facility] , Protein [Mass/volume] in Ser um or PlasmaOrdered By: Haydee Lira on 03-12-2023 Protein [Mass/Vol] 6.0 g/dL 6.4-8.9 [facility] Protein [Mass/Vol] 5.7 g/dL 6.0-8.5 [facility] Protein [Mass/volume] in Uri neOrdered By: Haydee Lira on 03-12-2023 Protein (U) [Mass/Vol] 468.8 mg/dL Not Estab. [facility] Comment on above: Results confirmed on dilution. Protein.monoclonal/Protein.t otal in 24 hour Urine by ElectrophoresisOrdered By: Haydee Lira on 03-12-2023 Protein.monoclonal Elph (24H U) [Mass fraction] Not observed % Not Observed [facility] RBC Auto (Bld) [#/Vol]Ordere d By: Haydee Lira on 03-12-2023 RBC (Bld) [#/Vol] 3.15 10*6/uL 3.90-5.60 [facility] Serum globulin measurement ( mass/volume)Ordered By: Haydee Lira on 03-12-2023 Globulin (S) [Mass/Vol] 2.8 g/dL 2.2-3.9 [facility] Serum or plasma albumin/glob ulin mass ratioOrdered By: Haydee Lira on 03-12-2023 Albumin/Globulin [Mass ratio] 1.3 {ratio} [facility] Albumin/Globulin [Mass ratio] 1.0 {ratio} 0.7-1.[address] [facility] Serum or plasma alpha 1 glob ulin measurement by electrophoresis (mass/volume)Ordered By: Haydee Lira on 03-12-2023 Alpha 1 globulin Elph [Mass/Vol] 0.2 g/dL 0.0-0.[address] [facility] Serum or plasma alpha 2 glob ulin measurement by electrophoresis (mass/volume)Ordered By: Haydee Lira on 03-12-2023 Alpha 2 globulin Elph [Mass/Vol] 0.7 g/dL 0.4-1.[address] [facility] Serum or plasma anion gap de terminationOrdered By: Haydee Lira on 03-12-2023 Anion gap [Moles/Vol] 12.6 mmol/L 6.0-15.0 [facility] Serum or plasma beta globuli n measurement by electrophoresis (mass/volume)Ordered By: Haydee Lira on 03-12-2023 Beta globulin Elph [Mass/Vol] 0.8 g/dL 0.7-1.[address] [facility] Serum or plasma gamma globul in measurement by electrophoresis (mass/volume)Ordered By: Haydee Lira on 03-12-2023 Gamma globulin Elph [Mass/Vol] 1.1 g/dL 0.4-1.[address] [facility] Sodium [Moles/volume] in Ser um or PlasmaOrdered By: Haydee Lira on 03-12-2023 Sodium [Moles/Vol] 136 mmol/L 136-145 [facility] Urea nitrogen [Mass/volume] in Serum or PlasmaOrdered By: Haydee Lira on 03-12-2023 Urea nitrogen [Mass/Vol] 43 mg/dL 7-[address] [facility] Urine alpha 1 globulin/total protein by electrophoresisOrdered By: Haydee Lira on 03-12-2023 Alpha 1 globulin Elph (U) [Mass fraction] 7.3 % . [facility] Urine alpha 2 globulin/total protein ratio by electrophoresisOrdered By: Haydee Lira on 03-12-2023 Alpha 2 globulin Elph (U) [Mass fraction] 6.5 % . [facility] Urine beta globulin measurem ent by electrophoresis (mass/volume)Ordered By: Haydee Lira on 03-12-2023 Beta globulin Elph (U) [Mass/Vol] 12.5 % . [facility] WBC Auto (Bld) [#/Vol]Ordere d By: Haydee Lira on 03-12-2023 WBC (Bld) [#/Vol] 6.1 10*3/uL 4.1-10.5 [facility] Albumin [Mass/volume] in Ser um or Plasma by Bromocresol green (BCG) dye binding methoOrdered By: Angel Mejía on 02-27-2023 Albumin BCG dye [Mass/Vol] 3.3 g/dL 3.5-5.[address] [facility] Calcium [Mass/volume] in Ser um or PlasmaOrdered By: Angel Mejía on 02-27-2023 Calcium [Mass/Vol] 7.3 mg/dL 8.6-10.3 [facility] Carbon dioxide, total [Moles /volume] in Serum or PlasmaOrdered By: Angel Mejía on 02-27-2023 CO2 [Moles/Vol] 20.1 mmol/L 21.0-31.0 [facility] Chloride [Moles/volume] in S gretta or PlasmaOrdered By: Angel Mejía on 02-27-2023 Chloride [Moles/Vol] 107 mmol/L 98-107 [facility] Creatinine [Mass/volume] in Serum or PlasmaOrdered By: Angel Mejía on 02-27-2023 Creatinine [Mass/Vol] 6.60 mg/dL 0.70-1.30 [facility] Erythrocyte distribution wid th Auto (RBC) [Ratio]Ordered By: Angel Mejía on 02-27-2023 Erythrocyte distribution width (RBC) [Ratio] 13.2 % 12.0-14.[address] [facility] Ferritinon 02-27-2023 Ferritin [Mass/Vol] 73.2 ng/mL Normal 23.9-336.2 [facility] Comment on above: Order Comment: Reaso n for Exam Chronic kidney disease, stage 5;Lauri hy kid w cr kid I-IV;Hyp Performed By: #### V [id number], FE and TIBC, MG, RENAL, IATLO ####[place] [address] [place] [id number] [facility] Ferritin [Mass/volume] in Se rum or PlasmaOrdered By: Angel Mejía on 02-27-2023 Ferritin [Mass/Vol] 73.2 ng/mL 23.9-336.2 [facility] Glucose [Mass/volume] in Ser um or PlasmaOrdered By: Angel Mejía on 02-27-2023 Glucose [Mass/Vol] 173 mg/dL 70-100 [facility] Comment on above: ADA recommended refe rence rangeRandom Glucose Reference Range is dependent on time and content of last meal. Glucose of more than 200 mg/dL in a nonstressed, ambulatory subject supports the diagnosis of Diabetes Mellitus. Hematocrit Auto (Bld) [Volum e fraction]Ordered By: Angel Mejía on 02-27-2023 Hematocrit (Bld) [Volume fraction] 28.0 % 38.8-50.[address] [facility] Hemoglobin [Mass/volume] in BloodOrdered By: Angel Mejía on 02-27-2023 Hemoglobin (Bld) [Mass/Vol] 9.3 g/dL 13.0-17.[address] [facility] Hemogram CBC Without Diffon 02-27-2023 Erythrocyte distribution width (RBC) [Ratio] 13.2 % Normal 12.0-14.[address] [facility] Comment on above: Order Comment: Reaso n for Exam Chronic kidney disease, stage 5;Lauri hy kid w cr kid I-IV;Hyp Performed By: #### C BCNO ####[place] [address] [place] [address] [facility] Hematocrit (Bld) [Volume fraction] 28.0 % Low 38.8-50.[address] [facility] Comment on above: Order Comment: Reaso n for Exam Chronic kidney disease, stage 5;Lauri hy kid w cr kid I-IV;Hyp Performed By: #### C BCNO ####[place] [address] [place] [id number] [facility] Hemoglobin (Bld) [Mass/Vol] 9.3 g/dL Low 13.0-17.[address] [facility] Comment on above: Order Comment: Reaso n for Exam Chronic kidney disease, stage 5;Lauri hy kid w cr kid I-IV;Hyp Performed By: #### C BCNO ####[address] [address] [facility] MCH (RBC) [Entitic mass] 29.0 pg Normal 27.5-35.[address] [facility] Comment on above: Order Comment: Reaso n for Exam Chronic kidney disease, stage 5;Lauri hy kid w cr kid I-IV;Hyp Performed By: #### C BCNO ####[place] [id number] [facility] MCV (RBC) [Entitic vol] 86.9 fL Normal 83.5-101 [facility] Comment on above: Order Comment: Reaso n for Exam Chronic kidney disease, stage 5;Lauri hy kid w cr kid I-IV;Hyp Performed By: #### C BCNO ####[place] [id number] [facility] Mean Corpuscular HGB Conc 33.4 g/dL Normal 32.5-35.[address] [facility] Comment on above: Order Comment: Reaso n for Exam Chronic kidney disease, stage 5;Lauri hy kid w cr kid I-IV;Hyp Performed By: #### C BCNO ####[place] [id number] [facility] Platelet mean volume (Bld) [Entitic vol] 8.7 fL Normal 6.6-10.[address] [facility] Comment on above: Order Comment: Reaso n for Exam Chronic kidney disease, stage 5;Lauri hy kid w cr kid I-IV;Hyp Result Comment: PERF ORMED BY:[place] [address] [address] [place], [place] [id number] MEDICAL DIRECTORLEVY GILES M.D. Performed By: #### C BCNO ####[place] [id number] [facility] Platelets (Bld) [#/Vol] 134 10*3/uL Low 150-[address] [facility] Comment on above: Order Comment: Reaso n for Exam Chronic kidney disease, stage 5;Lauri hy kid w cr kid I-IV;Hyp Performed By: #### C BCNO ####[facility] [id number] [place] [address] [facility] RBC (Bld) [#/Vol] 3.22 10*6/uL Low 3.90-5.60 [facility] Comment on above: Order Comment: Reaso n for Exam Chronic kidney disease, stage 5;Lauri hy kid w cr kid I-IV;Hyp Performed By: #### C BCNO ####[address] [place] [address] [facility] WBC (Bld) [#/Vol] 5.9 10*3/uL Normal 4.1-10.5 [facility] Comment on above: Order Comment: Reaso n for Exam Chronic kidney disease, stage 5;Lauri hy kid w cr kid I-IV;Hyp Performed By: #### C BCNO ####[facility] [place] [address] [facility] Hepatitis Acute Panelon 02-16 HBsAg Screen Negative Normal Negative [facility] Comment on above: Order Comment: Reaso n for Exam Chronic kidney disease, stage 5;Lauri hy kid w cr kid I-IV;Hyp Performed By: #### H EPACUTE ####[facility] , Hepatitis A Antibody IgM Negative Normal Negative [facility] Comment on above: Order Comment: Reaso n for Exam Chronic kidney disease, stage 5;Lauri hy kid w cr kid I-IV;Hyp Performed By: #### H EPACUTE ####[facility] , Hepatitis B Core Antibody IgM Negative Normal Negative [facility] Comment on above: Order Comment: Reaso n for Exam Chronic kidney disease, stage 5;Lauri hy kid w cr kid I-IV;Hyp Performed By: #### H EPACUTE ####[facility] , Hepatitis C Virus Antibody Non-Reactive Normal Non Reactive [facility] Comment on above: Order Comment: Reaso n for Exam Chronic kidney disease, stage 5;Lauri hy kid w cr kid I-IV;Hyp Performed By: #### H EPACUTE ####[facility] , Interpretation Hepatitis C Normal . [facility] Comment on above: Order Comment: Reaso n for Exam Chronic kidney disease, stage 5;Lauri hy kid w cr kid I-IV;Hyp Result Comment: Not infected with HCV unless early or acute infection is suspected (which may be delayed in an immunocompromised individual), or other evidence exists to indicate HCV infection. Performed at: [facility] [address] [id number] Stemhole Borer: Pablito Alexander PhD, Phone: [phone] BY:[place] [address] [address] BROOKLYNRodríguezEsaVERSAILLES, [place] [phone] MEDICAL DIRECTORLEVY GILES M.D. Performed By: #### H EPACUTE ####[facility] , Hepatitis B virus surface Ag [Presence] in Serum or Plasma by ImmunoassayOrdered By: Angel Mejía on 02-27-2023 HBV surface Ag IA Ql Negative Negative [facility] Hepatitis C virus IgG Ab [Pr esence] in Serum or Plasma by ImmunoassayOrdered By: Angel Mejía on 02-27-2023 HCV IgG IA Ql Non-Reactive Non Reactive [facility] Hepatitis C virus RNA [Units /volume] (viral load) in Serum or Plasma by HAO with probOrdered By: Angel Mejía on 02-27-2023 HCV RNA HAO+probe Qn N/A [facility] Hepatitis C virus RNA [log u nits/volume] (viral load) in Serum or Plasma by HAO withOrdered By: Angel Mejía on 02-27-2023 HCV RNA HAO+probe [Log units/Vol] N/A [facility] Iron [Mass/volume] in Serum or PlasmaOrdered By: Angel Mejía on 02-27-2023 Iron [Mass/Vol] 64 ug/dL 50-[address] 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 Comment on above: Order Comment: Reaso n for Exam Chronic kidney disease, stage 5;Lauri hy kid w cr kid I-IV;Hyp Performed By: #### V [id number], FE and TIBC, MG, RENAL, ITALO ####[address] [address] [facility] Total Iron Binding Capacity 224 ug/dL Low 255-[address] [facility] Comment on above: Order Comment: Reaso n for Exam Chronic kidney disease, stage 5;Lauri hy kid w cr kid I-IV;Hyp Performed By: #### V [id number], FE and TIBC, MG, RENAL, ITALO ####[address] [address] [facility] Transferrin [Mass/Vol] 160 mg/dL Low 203-362 [facility] Comment on above: Order Comment: Reaso n for Exam Chronic kidney disease, stage 5;Lauri hy kid w cr kid I-IV;Hyp Performed By: #### V [id number], FE and TIBC, MG, RENAL, ITALO ####[address] [address] [facility] Iron binding capacity [Mass/ volume] in Serum or PlasmaOrdered By: Angel Joyce on 02-27-2023 Iron binding capacity [Mass/Vol] 224 ug/dL 255-[address] [facility] Iron saturation [Mass Fracti on] in Serum or PlasmaOrdered By: Angel Joyce on 02-27-2023 Iron saturation [Mass fraction] 28.6 % 20-[address] [facility] Leukocytes [#/volume] correc celena for nucleated erythrocytes in Blood by Automated counOrdered By: Angel Joyce on 02-27-2023 WBC corrected for nucl RBC Auto (Bld) [#/Vol] 5.9 10*3/uL 4.1-10.[address] [facility] MCH Auto (RBC) [Entitic mass ]Ordered By: Angel Mejía on 02-27-2023 MCH (RBC) [Entitic mass] 29.0 pg 27.5-35.[address] [facility] MCHC Auto (RBC) [Mass/Vol]Or dered By: Angel Mejía on 02-27-2023 MCHC (RBC) [Mass/Vol] 33.4 g/dL 32.5-35.6 [facility] MCV Auto (RBC) [Entitic vol] Ordered By: Angel Mejía on 02-27-2023 MCV (RBC) [Entitic vol] 86.9 fL 83.5-101 [facility] Magnesiumon 02-27-2023 Magnesium [Mass/Vol] 1.7 mg/dL Low 1.9-2.7 [facility] Comment on above: Order Comment: Reaso n for Exam Chronic kidney disease, stage 5;Lauri hy kid w cr kid I-IV;Hyp Performed By: #### V [id number], FE and TIBC, MG, RENAL, ITALO ####[facility] [id number] Magnesium [Mass/volume] in S gretta or PlasmaOrdered By: Angel Mejía on 02-27-2023 Magnesium [Mass/Vol] 1.7 mg/dL 1.9-2.7 [facility] No Panel InformationOrdered By: Angel Mejía on 02-27-2023 Estimated GFR (CKD-EPI) 10.328 mL/Min [facility] Hepatitis A IgM Antibody Negative Negative [facility] Hepatitis B Core IgM Antibody Negative Negative [facility] Hepatitis C Interpretation See comment . [facility] Comment on above: Not infected with HC V unless early or acute infection issuspected (which may be delayed in an immunocompromisedindividual), or other evidence exists to indicate HCVinfection.Performed at: [facility] [address] [id number] Director: Pablito Alexander PhD, Phone: [phone] Hepatitis C RNA Quantitative N/A [facility] Creatinine Clearance (Chem N/A [facility] Parathyrin.intact [Mass/volu me] in Serum or PlasmaOrdered By: Angel Mejía on 02-27-2023 Parathyrin.intact [Mass/Vol] 713.5 pg/mL [facility] Parathyroid Hormone Intacton 02-27-2023 Parathyroid Hormone Intact 713.5 pg/mL High [facility] Comment on above: Order Comment: Reaso n for Exam Chronic kidney disease, stage 5;Lauri hy kid w cr kid I-IV;Hyp Result Comment: PERF ORMED BY:[facility] [place], [place] [phone] MEDICAL DIRECTORLEVY GILES M.D. Performed By: #### P TH ####[facility] [id number] [place] [address] [facility] Phosphate [Mass/volume] in S gretta or PlasmaOrdered By: Angel Mejía on 02-27-2023 Phosphate [Mass/Vol] 7.2 mg/dL 3.7-7.2 [facility] Platelet mean volume Auto (B ld) [Entitic vol]Ordered By: Angel Mejía on 02-27-2023 Platelet mean volume (Bld) [Entitic vol] 8.7 fL 6.6-10.[address] [facility] Platelets Auto (Bld) [#/Vol] Ordered By: Angel Mejía on 02-27-2023 Platelets (Bld) [#/Vol] 134 10*3/uL 150-[address] [facility] Potassium [Moles/volume] in Serum or PlasmaOrdered By: Angel Mejía on 02-27-2023 Potassium [Moles/Vol] 5.1 mmol/L 3.5-5.1 [facility] RBC Auto (Bld) [#/Vol]Ordere d By: Angel Mejía on 02-27-2023 RBC (Bld) [#/Vol] 3.22 10*6/uL 3.90-5.60 [facility] Renal Function Panelon 02-27 Albumin [Mass/Vol] 3.3 g/dL Low 3.5-5.7 [facility] Comment on above: Order Comment: Reaso n for Exam Chronic kidney disease, stage 5;Lauri hy kid w cr kid I-IV;Hyp Performed By: #### V [id number], FE and TIBC, MG, RENAL, ITALO ####[address] [place] [address] [facility] Anion gap [Moles/Vol] 13.0 mmol/L Normal 6.0-15.0 [facility] Comment on above: Order Comment: Reaso n for Exam Chronic kidney disease, stage 5;Lauri hy kid w cr kid I-IV;Hyp Performed By: #### V [id number], FE and TIBC, MG, RENAL, ITALO ####[place] [id number] [facility] Calcium [Mass/Vol] 7.3 mg/dL Low 8.6-10.3 [facility] Comment on above: Order Comment: Reaso n for Exam Chronic kidney disease, stage 5;Lauri hy kid w cr kid I-IV;Hyp Performed By: #### V [id number], FE and TIBC, MG, RENAL, ITALO ####[place] [id number] [facility] Chloride [Moles/Vol] 107 mmol/L Normal 98-107 [facility] Comment on above: Order Comment: Reaso n for Exam Chronic kidney disease, stage 5;Lauri hy kid w cr kid I-IV;Hyp Performed By: #### V [id number], FE and TIBC, MG, RENAL, ITALO ####[address] [address] [facility] CO2 [Moles/Vol] 20.1 mmol/L Low 21.0-31.0 [facility] Comment on above: Order Comment: Reaso n for Exam Chronic kidney disease, stage 5;Lauri hy kid w cr kid I-IV;Hyp Performed By: #### V [id number], FE and TIBC, MG, RENAL, ITALO ####[place] [id number] [facility] Creatinine [Mass/Vol] 6.60 mg/dL High 0.70-1.30 [facility] Comment on above: Order Comment: Reaso n for Exam Chronic kidney disease, stage 5;Lauri hy kid w cr kid I-IV;Hyp Performed By: #### V [id number], FE and TIBC, MG, RENAL, ITALO ####[address] [place] [address] [facility] GFR/1.73 sq M.predicted MDRD (S/P/Bld) [Vol rate/Area] 10.328 mL/min/{1.73_m2} Normal [facility] Comment on above: Order Comment: Reaso n for Exam Chronic kidney disease, stage 5;Lauri hy kid w cr kid I-IV;Hyp Performed By: #### V [id number], FE and TIBC, MG, RENAL, ITALO ####[address] [place] [address] [facility] Glucose [Mass/Vol] 173 mg/dL High 70-100 [facility] Comment on above: Order Comment: Reaso n for Exam Chronic kidney disease, stage 5;Lauri hy kid w cr kid I-IV;Hyp Result Comment: [facility] Glucose Reference Range is dependent on time and content of last meal. Glucose of more than 200 mg/dL in a nonstressed, ambulatory subject supports the diagnosis of Diabetes Mellitus. ADA recommended reference range Performed By: #### V [id number], FE and TIBC, MG, RENAL, ITALO ####[address] [place] [address] [facility] Phosphate [Mass/Vol] 7.2 mg/dL Normal 3.7-7.2 [facility] Comment on above: Order Comment: Reaso n for Exam Chronic kidney disease, stage 5;Lauri hy kid w cr kid I-IV;Hyp Performed By: #### V [id number], FE and TIBC, MG, RENAL, ITALO ####[address] [place] [address] [facility] Potassium [Moles/Vol] 5.1 mmol/L Normal 3.5-5.1 [facility] Comment on above: Order Comment: Reaso n for Exam Chronic kidney disease, stage 5;Lauri hy kid w cr kid I-IV;Hyp Performed By: #### V [id number], FE and TIBC, MG, RENAL, ITALO ####[address] [place] [id number] [facility] Sodium [Moles/Vol] 135 mmol/L Low 136-145 [facility] Comment on above: Order Comment: Reaso n for Exam Chronic kidney disease, stage 5;Lauri hy kid w cr kid I-IV;Hyp Performed By: #### V [id number], FE and TIBC, MG, RENAL, ITALO ####[address] [place] [id number] [facility] Urea nitrogen [Mass/Vol] 78 mg/dL High 03-[address] [facility] Comment on above: Order Comment: Reaso n for Exam Chronic kidney disease, stage 5;Lauri hy kid w cr kid I-IV;Hyp Performed By: #### V [id number], FE and TIBC, MG, RENAL, ITALO ####[address] [place] [id number] [facility] Serum or plasma anion gap de terminationOrdered By: Angel Georger on 02-27-2023 Anion gap [Moles/Vol] 13.0 mmol/L 6.0-15.0 [facility] Sodium [Moles/volume] in Ser um or PlasmaOrdered By: Angel Joyce on 02-27-2023 Sodium [Moles/Vol] 135 mmol/L 136-145 [facility] Transferrin [Mass/volume] in Serum or PlasmaOrdered By: Angel Joyce on 02-27-2023 Transferrin [Mass/Vol] 160 mg/dL 203-362 [facility] US AV Fistulaon 02-27-2023 US AV Fistula Normal [facility] Urea nitrogen [Mass/volume] in Serum or PlasmaOrdered By: Angel Joyce on 02-27-2023 Urea nitrogen [Mass/Vol] 78 mg/dL 03-[address] [facility] Vitamin D 25 Hydroxy Totalon 02-27-2023 Vitamin D 25 Hydroxy Total 23.7 ng/mL Low 30-[address] [facility] Comment on above: Order Comment: Reaso n for Exam Chronic kidney disease, stage 5;Lauri hy kid w cr kid I-IV;Hyp Result Comment: KAMALA MIN D STATUS 25([place])VITAMIN D RANGE (ng/mL) Deficient <20 Insufficient 20 to <30 Sufficient 30 to 100 Reference: Chemo Campbell, Sergey SIMENTAL, et al. Evaluation,treatment, and prevention of vitamin D deficiency; an Endocrine Society clinical practice guideline. JC. 2010; 96(7):191-.PERFORMED BY:[facility] [place], [place] [phone] MEDICAL DIRECTORLEVY GILES M.D. Performed By: #### V [id number], FE and TIBC, MG, RENAL, ITALO ####[facility] [place] [address] [facility] Vitamin D+Metabolites [Mass/ volume] in Serum or PlasmaOrdered By: Angel Mejía on 02-27-2023 Vitamin D+Metabolites [Mass/Vol] 23.7 ng/mL 30-[address] [facility] Comment on above: VITAMIN D STATUS 25( [place])VITAMIN D RANGE (ng/mL) Deficient <20 Insufficient 20 to <30Sufficient 30 to 100Reference: Chemo Campbell, Sergey SIMENTAL, et al. Evaluation,treatment, and prevention of vitamin D deficiency; an Endocrine Society clinical practice guideline. JCEM. 2010; 96(7):1911-. Office Visit (Cardiology)on 02-26-2023 Follow-up visit Diagnoses/Problems Assessed ASHD (arteriosclerotic heart disease) (414.00) (I25.10) History of ischemic cardiomyopathy (V45.89) (Z86.79) Ischemic cardiomyopathy (414.8) (I25.5) Chronic kidney disease (CKD) (585.9) (N18.9) Diabetes mellitus (250.00) (E11.9) Essential hypertension, benign (401.1) (I10) Hyperlipidemia (272.4) (E78.5) Current every day smoker (305.1) (F17.200) 1 Pack of cigarettes daily Orders ASHD (arteriosclerotic heart disease), CHF (congestive heart failure), History of AL (myocardial infarction) Renew: Aspirin 81 MG Oral Tablet Delayed Release; TAKE 1 TABLET DAILY SocHx: Current every day smoker You need to stop smoking. Though it is not easy, more than half of all adult smokers have quit. We encourage you to write down all the reasons you should quit smoking and set a quit date for yourself. Ask us how we can help. You may also call 5-483-OKQ; Status:Complete - Retrospective Authorization; Done: [id number] Tobacco Use Screening; Status:Complete; Done: [id number] Patient Instructions Please bring all medicines, vitamins, and herbal supplements with you when you come to the office. Prescriptions will not be filled unless you are compliant with your follow up appointments or have a follow up appointment scheduled as per instruction of your physician. Refills should be requested at the time of your visit. O/V 6 MONTHS Chief Complaint YOEL WERNER is being seen for follow-up of a hospitalization for f/u cath results. 37-year-old gentleman returns for follow-up following recent completion of his revascularization procedures, most recently the proximal RCA with drug-eluting stents. He has had previous anterior AL with revascularization of the LAD. He has no anginal complaints. He has type 1 diabetes mellitus, stage V renal failure and is about to embark on hemodialysis therapy, he has no shortness of breath or angina at this juncture and underwent revascularization of the RCA without complications. Fortunately, left ventricular function remains normal by echo from September 2022, with evidence of moderate to severe left ventricular hypertrophy, last lipid panel from October was noted with an LDL of 93 HDL of 31 triglycerides 97 Recommendations, continue current GDMT and DAPT, follow-up in 6 months Surgical History Problems History of Cardiac catheterization with stent placement Denied: History of Complete colonoscopy History of Eye surgery History of Knee surgery History of Vasectomy Past Medical History Problems History of class II angina pectoris (V12.59) (Z86.79) Resolved Date: 26 Feb 2023 History of ischemic cardiomyopathy (V45.89) (Z86.79) Resolved Date: 26 Feb 2023 Current Meds Medication NameInstruction Aspirin 81 MG Oral Tablet Delayed ReleaseTAKE 1 TABLET DAILY. Atorvastatin Calcium 80 MG Oral TabletTAKE 1 TABLET BY MOUTH EVERY NIGHT Basaglar KwikPen 100 UNIT/ML Subcutaneous Solution Pen-injectorUSE DIRECTED. Carvedilol 25 MG Oral Tablettake 1 tablet by mouth twice a day Claritin 10 MG Oral TabletTAKE 1 TABLET AT BEDTIME. Clopidogrel Bisulfate 75 MG Oral TabletTAKE 1 TABLET BY MOUTH EVERY DAY Famotidine 20 MG Oral TabletTAKE 1 TABLET AT BEDTIME. Furosemide 40 MG Oral TabletTAKE 1 TABLET BY MOUTH EVERY DAY HumaLOG KwikPen 100 UNIT/ML Subcutaneous Solution Pen-injectorUSE DIRECTED hydrALAZINE HCl - 50 MG Oral TabletTAKE 1 TABLET BY MOUTH THREE TIMES DAILY FOR 30 DAYS Isosorbide Mononitrate ER 60 MG Oral Tablet Extended Release 24 HourTAKE 1 TABLET BY MOUTH TWICE DAILY Nitroglycerin 0.4 MG Sublingual Tablet SublingualPLACE 1 TABLET UNDER THE TONGUE EVERY 5 MINUTES UP TO 3 DOSES NEEDED FOR CHEST PAIN. Omeprazole 20 MG Oral Capsule Delayed ReleaseTAKE 1 CAPSULE Daily Allergies Medication No Known Drug Allergies Recorded By: Allyson Xiong; 11/24/2021 1:09:16 PM Social History Problems Current every day smoker (305.1) (F17.200) 1 Pack of cigarettes daily Daily caffeine consumption, 2-3 servings a day Illicit drug use (305.90) (F19.90) medical No alcohol use Vitals Vital Signs Recorded: [id number] 09:21AM Heart Rate78, R Radial Ipoimwsg089, RUE, Sitting Ulwrcjchs83, RUE, Sitting Height6 ft Xaawha047 lb BMI Iaeusaocvv51.43 kg/m2 BSA Calculated1.93 Tobacco Usea) Yes Patient encouraged to stop using tobacco productsYes Falls Screening (Age 18+)c) Not medically indicated Physical Exam Constitutional: alert and in no acute distress. Neck: neck is supple, symmetric, trachea midline, no masses and no thyromegaly . Pulmonary: no increased work of breathing or signs of respiratory distress and lungs clear to auscultation. Cardiovascular: carotid pulses 2+ bilaterally with no bruit , JVP was normal, no thrills , regular rhythm, normal S1 and S2, no murmurs , pedal pulses 2+ bilaterally and no edema . Abdomen: abdomen non-tender, no masses and no hepatomegaly . Skin: skin warm and dry, normal skin turgor . Psychiatr (more content not included)... Normal Proactive [facility]fort Tobacco Screening.on 023 Fall risk assessment c) Not medically indicated [facility]-Sandu marianne 250 DO Work Phone: Tobacco use status CPHS a) Yes M [facility]-Sandu marianne 250 DO Work Phone: Tobacco Screening. Yes [facility] Heart-Sandu marianne 250 DO Work Phone: ECG 12 lead ECGon 02-04-2023 ECG 12 lead ECG [address] [facility] Activated partial thrombopla stin time (aPTT) in platelet poor plasma by coagulation aOrdered By: Denilson Gomez on 01-31-2023 aPTT Coag (PPP) [Time] 40.7 s 25.1-36.5 [facility] Basophils Auto (Bld) [#/Vol] Ordered By: Denilson Gomez on 01-31-2023 Basophils (Bld) [#/Vol] 0.1 10*3/uL 0.0-0.[address] [facility] Basophils/100 WBC Auto (Bld) Ordered By: Denilson Gomez on 01-31-2023 Basophils/100 WBC (Bld) 1.7 % . [facility] Blood Urea Nitrogenon 2022 Urea nitrogen [Mass/Vol] 71 mg/dL High 7-[address] [facility] Comment on above: Performed By: #### C REAT, LIPID, PP, CBC, BUN, LYTES ####[facility] [id number] Carbon dioxide, total [Moles /volume] in Serum or PlasmaOrdered By: Denilson Gomez on 01-31-2023 CO2 [Moles/Vol] 22.2 mmol/L 21.0-31.0 [facility] Chloride [Moles/volume] in S gretta or PlasmaOrdered By: Denilson Gomez on 01-31-2023 Chloride [Moles/Vol] 106 mmol/L 98-107 [facility] Cholesterol [Mass/volume] in Serum or PlasmaOrdered By: Denilson Gomez on 01-31-2023 Cholesterol [Mass/Vol] 144 mg/dL 140-200 [facility] Comment on above: Chol less than 200 m g/dl low riskChol 201-239 mg/dl borderline riskChol 240 mg/dl and greater high risk Cholesterol in LDL Calc [Mas s/Vol]Ordered By: Denilson Gomez on 01-31-2023 Cholesterol in LDL [Mass/Vol] 95 mg/dL 0-[address] [facility] Comment on above: LDL ATP III CLASSIFI CATIONLDL less than 100 mg/dL OptimalLDL 100-129 mg/dL Near or above optimalLDL 130-159 mg/dL Borderline highLDL 160-189 mg/dL HighLDL greater than 189 mg/dL Very high Cholesterol in VLDL Calc [Ma ss/Vol]Ordered By: Denilson Gomez on 01-31-2023 Cholesterol in VLDL [Mass/Vol] 20 mg/dL [facility] Coagulation Profileon 2022 aPTT Coag (Bld) [Time] 40.7 s High 25.1-36.5 [facility] Comment on above: Result Comment: PERF ORMED BY:[address] [place], [place] [phone] MEDICAL DIRECTORLEVY GILES M.D. Performed By: #### C REAT, LIPID, PP, CBC, BUN, LYTES ####[address] [place] [address] [facility] INR Coag (PPP) [Relative time] 1.1 {INR} Normal [facility] Comment on above: Result Comment: INR Therapeutic Range A) Pre- and Peroperative OAT started two weeks before surgery. NOT HIP SURGERY: 1.5 - 2.5 HIP SURGERY: 2 - 3 B) Primary and secondary prevention of venous THROMBOSIS: 2 - 3 C) Active venous thrombosis, pulmonary embolism and prevention of recurrent venous thrombosis: 2 - 3 D) Prevention of arterial thromboembolism including patients with mechanical heart valves: 3 - 4.5 Performed By: #### C REAT, LIPID, PP, CBC, BUN, LYTES ####[address] [address] [facility] PT Coag (PPP) [Time] 12.7 s Normal 9.0-12.9 [facility] Comment on above: Performed By: #### C REAT, LIPID, PP, CBC, BUN, LYTES ####[address] [place] [address] [facility] Complete Blood Count Auto Di ffon 01-31-2023 Basophils (Bld) [#/Vol] 0.1 10*3/uL Normal 0.0-0.[address] [facility] Comment on above: Result Comment: PERF ORMED BY:[address] [place], [place] [phone] MEDICAL DIRECTORLEVY GILES M.D. Performed By: #### C REAT, LIPID, PP, CBC, BUN, LYTES ####[address] Basophils/100 WBC (Bld) 1.7 % Normal . [facility] Comment on above: Performed By: #### C REAT, LIPID, PP, CBC, BUN, LYTES ####[address] Eosinophils (Bld) [#/Vol] 0.2 10*3/uL Normal 0.0-0.[address] [facility] Comment on above: Performed By: #### C REAT, LIPID, PP, CBC, BUN, LYTES ####[address] Eosinophils/100 WBC (Bld) 2.9 % Normal . [facility] Comment on above: Performed By: #### C REAT, LIPID, PP, CBC, BUN, LYTES ####[address] Erythrocyte distribution width (RBC) [Ratio] 12.9 % Normal 12.0-14.[address] [facility] Comment on above: Performed By: #### C REAT, LIPID, PP, CBC, BUN, LYTES ####[address] Hematocrit (Bld) [Volume fraction] 26.0 % Low 38.8-50.[address] [facility] Comment on above: Performed By: #### C REAT, LIPID, PP, CBC, BUN, LYTES ####[address] Hemoglobin (Bld) [Mass/Vol] 9.1 g/dL Low 13.0-17.[address] [facility] Comment on above: Performed By: #### C REAT, LIPID, PP, CBC, BUN, LYTES ####[address] Lymphocytes (Bld) [#/Vol] 1.0 10*3/uL Normal 1.00-4.[address] [facility] Comment on above: Performed By: #### C REAT, LIPID, PP, CBC, BUN, LYTES ####[address] Lymphocytes/100 WBC (Bld) 16.1 % Normal . [facility] Comment on above: Performed By: #### C REAT, LIPID, PP, CBC, BUN, LYTES ####[address] MCH (RBC) [Entitic mass] 30.1 pg Normal 27.5-35.[address] [facility] Comment on above: Performed By: #### C REAT, LIPID, PP, CBC, BUN, LYTES ####[address] MCV (RBC) [Entitic vol] 86.3 fL Normal 83.5-101 [facility] Comment on above: Performed By: #### C REAT, LIPID, PP, CBC, BUN, LYTES ####[address] Mean Corpuscular HGB Conc 34.9 g/dL Normal 32.5-35.[address] [facility] Comment on above: Performed By: #### C REAT, LIPID, PP, CBC, BUN, LYTES ####[address] Monocytes (Bld) [#/Vol] 0.3 10*3/uL Normal 0.0-0.[address] [facility] Comment on above: Performed By: #### C REAT, LIPID, PP, CBC, BUN, LYTES ####[address] Monocytes/100 WBC (Bld) 4.5 % Normal . [facility] Comment on above: Performed By: #### C REAT, LIPID, PP, CBC, BUN, LYTES ####[address] Neutrophils (Bld) [#/Vol] 4.8 10*3/uL Normal 1.8-7.[address] [facility] Comment on above: Performed By: #### C REAT, LIPID, PP, CBC, BUN, LYTES ####[address] Neutrophils/100 WBC (Bld) 74.8 % Normal . [facility] Comment on above: Performed By: #### C REAT, LIPID, PP, CBC, BUN, LYTES ####[address] NRBC% 0.0 /100{WBC} Normal 0-0.[address] [facility] Comment on above: Performed By: #### C REAT, LIPID, PP, CBC, BUN, LYTES ####[address] Platelet mean volume (Bld) [Entitic vol] 8.5 fL Normal 6.6-10.[address] [facility] Comment on above: Performed By: #### C REAT, LIPID, PP, CBC, BUN, LYTES ####[address] Platelets (Bld) [#/Vol] 159 10*3/uL Normal 150-[address] [facility] Comment on above: Performed By: #### C REAT, LIPID, PP, CBC, BUN, LYTES ####[address] RBC (Bld) [#/Vol] 3.02 10*6/uL Low 3.90-5.60 [facility] Comment on above: Performed By: #### C REAT, LIPID, PP, CBC, BUN, LYTES ####[place] [address] [place] WBC (Bld) [#/Vol] 6.4 10*3/uL Normal 4.1-10.5 [facility] Comment on above: Performed By: #### C REAT, LIPID, PP, CBC, BUN, LYTES ####[place] [address] [place] [id number] [facility] Creatinineon 01-31-2023 Creatinine [Mass/Vol] 5.36 mg/dL High 0.70-1.30 [facility] Comment on above: Performed By: #### C REAT, LIPID, PP, CBC, BUN, LYTES ####[place] [address] GFR/1.73 sq M.predicted MDRD (S/P/Bld) [Vol rate/Area] 13.256 mL/min/{1.73_m2} Normal [facility] Comment on above: Performed By: #### C REAT, LIPID, PP, CBC, BUN, LYTES ####[address] Creatinine [Mass/volume] in Serum or PlasmaOrdered By: Denilson Gomez on 01-31-2023 Creatinine [Mass/Vol] 5.36 mg/dL 0.70-1.30 [facility] ECG 12 lead ECGon 01-31-2023 ECG 12 lead ECG Normal [facility] Electrolyteson 01-31-2023 Anion gap [Moles/Vol] 12.8 mmol/L Normal 6.0-15.0 [facility] Comment on above: Performed By: #### C REAT, LIPID, PP, CBC, BUN, LYTES ####[place] [id number] [facility] Chloride [Moles/Vol] 106 mmol/L Normal 98-107 [facility] Comment on above: Performed By: #### C REAT, LIPID, PP, CBC, BUN, LYTES ####[place] [address] [place] [id number] [facility] CO2 [Moles/Vol] 22.2 mmol/L Normal 21.0-31.0 [facility] Comment on above: Performed By: #### C REAT, LIPID, PP, CBC, BUN, LYTES ####[facility] Potassium [Moles/Vol] 5.0 mmol/L Normal 3.5-5.1 [facility] Comment on above: Performed By: #### C REAT, LIPID, PP, CBC, BUN, LYTES ####[place] [address] Sodium [Moles/Vol] 136 mmol/L Normal 136-145 [facility] Comment on above: Performed By: #### C REAT, LIPID, PP, CBC, BUN, LYTES ####[facility] Eosinophils Auto (Bld) [#/Vo l]Ordered By: Denilson Gomez on 01-31-2023 Eosinophils (Bld) [#/Vol] 0.2 10*3/uL 0.0-0.[address] [facility] Eosinophils/100 WBC Auto (Bl d)Ordered By: Denilson Gomez on 01-31-2023 Eosinophils/100 WBC (Bld) 2.9 % . [facility] Erythrocyte distribution wid th Auto (RBC) [Ratio]Ordered By: Denilson Gomez on 01-31-2023 Erythrocyte distribution width (RBC) [Ratio] 12.9 % 12.0-14.[address] [facility] Hematocrit Auto (Bld) [Volum e fraction]Ordered By: Denilson Gomez on 01-31-2023 Hematocrit (Bld) [Volume fraction] 26.0 % 38.8-50.[address] [facility] Hemoglobin [Mass/volume] in BloodOrdered By: Denilson Gomez on 01-31-2023 Hemoglobin (Bld) [Mass/Vol] 9.1 g/dL 13.0-17.[address] [facility] Laboratory - Chemistry and C hemistry - challengeon 01-31-2023 Cholesterol [Mass/Vol] 144\S\144 Normal 140-200 [facility] -[facility]-Sandu marianne 250 DO Work Phone: Comment on above: Chol less than 200 m g/dl low risk Chol 201-239 mg/dl borderline risk Chol 240 mg/dl and greater high risk Cholesterol in LDL [Mass/Vol] 95\S\95 Normal 0-100 -[facility]-Sandu marianne 250 DO Work Phone: Comment on above: LDL ATP III CLASSIFI CATION LDL less than 100 mg/dL Optimal LDL 100-129 mg/dL Near or above optimal LDL 130-159 mg/dL Borderline high LDL 160-189 mg/dL High LDL greater than 189 mg/dL Very high Laboratory - CoagulationOrde red By: Denilson Gomez on 01-31-2023 PT Coag (PPP) [Time] 12.7 s 9.0-12.9 [facility] Leukocytes [#/volume] correc celena for nucleated erythrocytes in Blood by Automated counOrdered By: Denilson Gomez on 01-31-2023 WBC corrected for nucl RBC Auto (Bld) [#/Vol] 6.4 10*3/uL 4.1-10.[address] [facility] Lipid Panelon 01-31-2023 Cholesterol [Mass/Vol] 144 mg/dL Normal 140-200 [facility] Comment on above: Result Comment: Chol less than 200 mg/dl low risk Chol 201-239 mg/dl borderline risk Chol 240 mg/dl and greater high risk Performed By: #### C REAT, LIPID, PP, CBC, BUN, LYTES ####[facility] [id number] [place] [address] [facility] Cholesterol in HDL [Mass/Vol] 28 mg/dL Normal 23-[address] [facility] Comment on above: Result Comment: HDL CHOL ATP-III CLASSIFICATION Cardiovascular Risk HDL > or equal to 60 mg/dL LOW HDL < 40 mg/dL HIGH Performed By: #### C REAT, LIPID, PP, CBC, BUN, LYTES ####[facility] [id number] [place] [address] [facility] Cholesterol.total/Rosalind sterol in HDL [Mass ratio] 5.1 {ratio} Normal <5.[address] [facility] Comment on above: Result Comment: PERF ORMED BY:[address] [place], [place] [phone] MEDICAL DIRECTORLEVY GILES M.D. Performed By: #### C REAT, LIPID, PP, CBC, BUN, LYTES ####[place] [address] LDL Cholesterol,Calculated 95 mg/dL Normal 0-[address] [facility] Comment on above: Result Comment: LDL ATP III CLASSIFICATION LDL less than 100 mg/dL Optimal LDL 100-129 mg/dL Near or above optimal LDL 130-159 mg/dL Borderline high LDL 160-189 mg/dL High LDL greater than 189 mg/dL Very high Performed By: #### C REAT, LIPID, PP, CBC, BUN, LYTES ####[place] [address] Triglyceride w/Reflex 103 mg/dL Normal 0-149 [facility] Comment on above: Result Comment: TRIG ATP III CLASSIFICATION TRIG less than 150 mg/dL Normal TRIG 150-199 mg/dL Borderline high TRIG 200-500 mg/dL High TRIG greater than 500 mg/dL Very high Standard traceable to the Center for Disease Conrtrol and Prevention (CDC) test method. Performed By: #### C REAT, LIPID, PP, CBC, BUN, LYTES ####[facility] VLDL CHOLESTEROL 20 mg/dL Normal [facility] Comment on above: Performed By: #### C REAT, LIPID, PP, CBC, BUN, LYTES ####[place] [address] Lymphocytes Auto (Bld) [#/Vo l]Ordered By: Denilson Gomez on 01-31-2023 Lymphocytes (Bld) [#/Vol] 1.0 10*3/uL 1.00-4.[address] [facility] Lymphocytes/100 WBC Auto (Bl d)Ordered By: Denilson Gomez on 01-31-2023 Lymphocytes/100 WBC (Bld) 16.1 % . [facility] MCH Auto (RBC) [Entitic mass ]Ordered By: Denilson Gomez on 01-31-2023 MCH (RBC) [Entitic mass] 30.1 pg 27.5-35.[address] [facility] MCHC Auto (RBC) [Mass/Vol]Or dered By: Denilson Gomez on 01-31-2023 MCHC (RBC) [Mass/Vol] 34.9 g/dL 32.5-35.6 [facility] MCV Auto (RBC) [Entitic vol] Ordered By: Denilson Gomez on 01-31-2023 MCV (RBC) [Entitic vol] 86.3 fL 83.5-101 [facility] Monocytes Auto (Bld) [#/Vol] Ordered By: Denilson Gomez on 01-31-2023 Monocytes (Bld) [#/Vol] 0.3 10*3/uL 0.0-0.[address] [facility] Monocytes/100 WBC Auto (Bld) Ordered By: Denilson Gomez on 01-31-2023 Monocytes/100 WBC (Bld) 4.5 % . [facility] Neutrophils Auto (Bld) [#/Vo l]Ordered By: Denilson Gomez on 01-31-2023 Neutrophils (Bld) [#/Vol] 4.8 10*3/uL 1.8-7.[address] [facility] Neutrophils/100 WBC Auto (Bl d)Ordered By: Denilson Gomez on 01-31-2023 Neutrophils/100 WBC (Bld) 74.8 % . [facility] No Panel InformationOrdered By: Denilson Gomez on 01-31-2023 Estimated GFR (CKD-EPI) 13.256 mL/Min [facility] Creatinine Clearance (Chem N/A [facility] No Panel Informationon 01-31 0.1\S\0.1 Normal 0.0-0.2 [facility] marianne 250 DO Work Phone: Comment on above: PERFORMED BY:[place] [address] [place], [place] [phone] MEDICAL DIRECTORLEVY GILES M.D. 0.2\S\0.2 Normal 0.0-0.45 [facility] marianne 250 DO Work Phone: 0.3\S\0.3 Normal 0.0-0.8 [facility]u marianne 250 DO Work Phone: [phone] 1.0\S\1.0 Normal 1.00-4.8 -[facility]-Sandu marianne 250 DO Work Phone: [phone] 4.8\S\4.8 Normal 1.8-7.7 [facility]-Sandu marianne 250 DO Work Phone: [phone] 0.0\S\0.0 Normal 0-0.5 [facility]-Sandu marianne 250 DO Work Phone: [phone] 1.7\S\1.7 Normal . [facility]-Sandu marianne 250 DO Work Phone: [phone] 2.9\S\2.9 Normal . [facility] mar[address]ne 250 DO Work Phone: [phone] 4.5\S\4.5 Normal . [facility]-Sandu marianne 250 DO Work Phone: [phone] 16.1\S\16.1 Normal . [facility]u marianne 250 DO Work Phone: [phone] 74.8\S\74.8 Normal . [facility] marianne 250 DO Work Phone: [phone] 8.5\S\8.5 Normal 6.6-10.1 [facility] marianne 250 DO Work Phone: [phone] 159\S\159 Normal 150-450 [facility] marianne 250 DO Work Phone: [phone] 12.9\S\12.9 Normal 12.0-14.8 [facility] marianne 250 DO Work Phone: [phone] 34.9\S\34.9 Normal 32.5-35.6 [facility] marianne 250 DO Work Phone: [phone] 30.1\S\30.1 Normal 27.5-35.2 [facility]-Sandu marianne 250 DO Work Phone: [phone] 86.3\S\86.3 Normal 83.5-101 [facility]stacy marianne 250 DO Work Phone: [phone] 26.0\S\26.0 below low threshold 38.8-50.0 [facility]-EndoEvolutionstacy marianne 250 DO Work Phone: 9.1\S\9.1 below low threshold 13.0-17.0 [facility] DO Work Phone: [phone] 3.02\S\3.02 below low threshold 3.90-5.60 [facility] HeartDakwakstacy marianne 250 DO Work Phone: [phone] 6.4\S\6.4 Normal 4.1-10.5 [facility] STEGOSYSTEMSMy marianne 250 DO Work Phone: 40.7\S\40.7 above high threshold 25.1-36.5 [facility] MedAvailstacy marianne 250 DO Work Phone: Comment on above: PERFORMED BY:[facility]111[facility] CENTERKATHLEEN [place], [place] [phone] MEDICAL DIRECTORLEVY GILES M.D. 1.1\S\1.1 Normal [facility] STEGOSYSTEMSMy marianne 250 DO Work Phone: Comment on above: INR Therapeutic Rang e A) Pre- and Peroperative OAT started two weeks before surgery. NOT HIP SURGERY: 1.5 - 2.5 HIP SURGERY: 2 - 3 B) Primary and secondary prevention of venous THROMBOSIS: 2 - 3 C) Active venous thrombosis, pulmonary embolism and prevention of recurrent venous thrombosis: 2 - 3 D) Prevention of arterial thromboembolism including patients with mechanical heart valves: 3 - 4.5 12.7\S\12.7 Normal 9.0-12.9 [facility] STEGOSYSTEMSUnimed Medical Centerstacy marianne 250 DO Work Phone: 12.8\S\12.8 Normal 6.0-15.0 [facility] marianne 250 DO Work Phone: 22.2\S\22.2 Normal 21.0-31.0 [facility] HeartTeri lopes 250 DO Work Phone: 106\S\106 Normal 98-107 [facility] HeartTeri lopes 250 DO Work Phone: [phone] 5.0\S\5.0 Normal 3.5-5.1 [facility] HeartTeri lopes 250 DO Work Phone: 136\S\136 Normal 136-145 [facility] Justin lopes 250 DO Work Phone: 71\S\71 above high threshold 7-25 [facility] HeartTeri lopes 250 DO Work Phone: 13.256\S\13.256 Normal [facility] Justin lopes 250 DO Work Phone: 5.36\S\5.36 above high threshold 0.70-1.30 [facility] Justin lopes 250 DO Work Phone: 5.1\S\5.1 Normal <5.0 [facility] HeartTeri lopes 250 DO Work Phone: Comment on above: PERFORMED BY:[place] [address] [address], [place] [phone] MEDICAL DIRECTORLEVY GILES M.D. 20\S\20 Normal [facility] Justin lopes 250 DO Work Phone: 103\S\103 Normal 0-149 [facility] Justin lopes 250 DO Work Phone: Comment on above: TRIG ATP III CLASSIF ICATION TRIG less than 150 mg/dL Normal TRIG 150-199 mg/dL Borderline high TRIG 200-500 mg/dL High TRIG greater than 500 mg/dL Very high Standard traceable to the Center for Disease Conrtrol and Prevention (CDC) test method. 28\S\28 Normal 23-92 [facility] Justin lopes 250 DO Work Phone: Comment on above: HDL CHOL ATP-III CLA SSIFICATION Cardiovascular Risk HDL > or equal to 60 mg/dL LOW HDL < 40 mg/dL HIGH Nucleated erythrocytes [Pres ence] in Blood by Automated countOrdered By: Denilson Gomez on 01-31-2023 Nucleated RBC Auto Ql (Bld) 0.0 /100{WBC} 0-0.[address] [facility] Platelet mean volume Auto (B ld) [Entitic vol]Ordered By: Denilson Gomez on 01-31-2023 Platelet mean volume (Bld) [Entitic vol] 8.5 fL 6.6-10.[address] [facility] Platelet poor plasma interna tional normalized ratio (INR) by coagulation assay (relatOrdered By: Denilson Gomez on 01-31-2023 INR Coag (PPP) [Relative time] 1.1 {INR} [facility] Comment on above: INR Therapeutic Rang e A) Pre- and Peroperative OAT started two weeks before surgery. NOT HIP SURGERY: 1.5 - 2.5 HIP SURGERY: 2 - 3B) Primary and secondary prevention of venous THROMBOSIS: 2 - 3C) Active venous thrombosis, pulmonary embolismand prevention of recurrent venous thrombosis: 2 - 3D) Prevention of arterial thromboembolismincluding patients with mechanical heart valves: 3 - 4.5 Platelets Auto (Bld) [#/Vol] Ordered By: Denilson Gomez on 01-31-2023 Platelets (Bld) [#/Vol] 159 10*3/uL 150-[address] [facility] Potassium [Moles/volume] in Serum or PlasmaOrdered By: Denilson Gomez on 01-31-2023 Potassium [Moles/Vol] 5.0 mmol/L 3.5-5.1 [facility] RBC Auto (Bld) [#/Vol]Ordere d By: Denilson Gomez on 01-31-2023 RBC (Bld) [#/Vol] 3.02 10*6/uL 3.90-5.60 [facility] Serum or plasma anion gap de terminationOrdered By: Denilson Gomez on 01-31-2023 Anion gap [Moles/Vol] 12.8 mmol/L 6.0-15.0 [facility] Serum or plasma high density lipoprotein (HDL) cholesterol measurementOrdered By: Denilson Gomez on 01-31-2023 Cholesterol in HDL [Mass/Vol] 28 mg/dL 23-[address] [facility] Comment on above: HDL CHOL ATP-III CLA SSIFICATION Cardiovascular RiskHDL > or equal to 60 mg/dL LOWHDL < 40 mg/dL HIGH Serum or plasma total choles terol/high density lipoprotein (HDL) cholesterol mass ratOrdered By: Denilson Gomez on 01-31-2023 Cholesterol.total/Rosalind sterol in HDL [Mass ratio] 5.1 {ratio} <5.[address] [facility] Sodium [Moles/volume] in Ser um or PlasmaOrdered By: Denilson Gomez on 01-31-2023 Sodium [Moles/Vol] 136 mmol/L 136-145 [facility] Triglyceride [Mass/volume] i n Serum or PlasmaOrdered By: Denilson Gomez on 01-31-2023 Triglyceride [Mass/Vol] 103 mg/dL 0-149 [facility] Comment on above: TRIG ATP III CLASSIF ICATIONTRIG less than 150 mg/dL NormalTRIG 150-199 mg/dL Borderline highTRIG 200-500 mg/dL High TRIG greater than 500 mg/dL Very highStandard traceable to the Center for Disease Conrtrol and Prevention (CDC) test method. Urea nitrogen [Mass/volume] in Serum or PlasmaOrdered By: Denilson Gomez on 01-31-2023 Urea nitrogen [Mass/Vol] 71 mg/dL 7- [facility] WBC Auto (Bld) [#/Vol]Ordere d By: Denilson Gomez on 01-31-2023 WBC (Bld) [#/Vol] 6.4 10*3/uL 4.1-10.5 [facility] Office Visit (Cardiology)on 01-16-2023 Follow-up visit Diagnoses/Problems Assessed ASHD (arteriosclerotic heart disease) (414.00) (I25.10) History of AL (myocardial infarction) (412) (I25.2) NSTEMI, initial episode of care (410.71) (I21.4) Chronic kidney disease (CKD) (585.9) (N18.9) CHF (congestive heart failure) (428.0) (I50.9) Diabetes mellitus (250.00) (E11.9) Body mass index (BMI) of 21.0 to 21.9 in adult (V85.1) (Z68.21) History of ischemic cardiomyopathy (V45.89) (Z86.79) Orders ASHD (arteriosclerotic heart disease), CHF (congestive heart failure), History of AL (myocardial infarction), NSTEMI, initial episode of care Cardiac Catherization; Status:Active - Retrospective Authorization; Requested for:[id number]; ASHD (arteriosclerotic heart disease), Hyperlipidemia, NSTEMI, initial episode of care Renew: Atorvastatin Calcium 80 MG Oral Tablet; TAKE 1 TABLET BY MOUTH EVERY NIGHT Patient Instructions Please bring all medicines, vitamins, and herbal supplements with you when you come to the office. Prescriptions will not be filled unless you are compliant with your follow up appointments or have a follow up appointment scheduled as per instruction of your physician. Refills should be requested at the time of your visit. Follow up after testing completed Cath order Chief Complaint YOEL WERNER is being seen for discuss possible ptca. 37-year-old gentleman with severe ischemic cardiomyopathy, prior anterior AL with revascularization of the LAD, more recently hospitalized for chest pain event resolving with nitrates. The patient has known residual RCA disease. 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 He has underlying type 1 diabetes mellitus. We have called him back to consider revascularization of the RCA which I have read looked at his angiogram and it appears to be an appropriate target given his recurrence of angina and symptomatology. Risks, benefits and alternatives and informed decision-making process performed for 30 minutes this morning with the patient including progression of renal failure as well as benefits of angina reduction and hopeful improvement of LV function. We will proceed with PCI of the RCA via the right radial approach electively within the next 2 weeks., We will appropriately hydrate him preoperatively and postoperatively. Surgical History Problems History of Cardiac catheterization with stent placement Denied: History of Complete colonoscopy History of Eye surgery History of Knee surgery History of Vasectomy Current Meds Medication NameInstruction Aspirin 81 MG Oral Tablet Delayed ReleaseTAKE 1 TABLET DAILY. Atorvastatin Calcium 80 MG Oral TabletTAKE 1 TABLET BY MOUTH EVERY NIGHT Basaglar KwikPen 100 UNIT/ML Subcutaneous Solution Pen-injectorUSE DIRECTED. Carvedilol 25 MG Oral TabletTAKE 1 TABLET TWICE DAILY. Famotidine 20 MG Oral TabletTAKE 1 TABLET AT BEDTIME. Furosemide 40 MG Oral TabletTAKE 1 TABLET BY MOUTH EVERY DAY HumaLOG KwikPen 100 UNIT/ML Subcutaneous Solution Pen-injectorUSE DIRECTED hydrALAZINE HCl - 50 MG Oral TabletTAKE 1 TABLET BY MOUTH THREE TIMES DAILY FOR 30 DAYS Isosorbide Mononitrate ER 60 MG Oral Tablet Extended Release 24 HourTake 1 tablet twice daily Nitroglycerin 0.4 MG Sublingual Tablet SublingualPLACE 1 TABLET UNDER THE TONGUE EVERY 5 MINUTES UP TO 3 DOSES NEEDED FOR CHEST PAIN. Omeprazole 20 MG Oral Capsule Delayed ReleaseTAKE 1 CAPSULE Daily Patient did not bring medication list or bottles. 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 Cardiovascular: no intermittent leg claudication and as noted in HPI. Respiratory: no cough and no shortness of breath. Gastrointestinal: no change in bowel habits and no blood in stools. Integumentary: no skin rashes. Neurological: no seizures and no frequent falls. All other systems have been reviewed and are negative for complaint. Vitals Vital Signs Recorded: [id number] 10:04AM Heart Rate60, R Radial Dihbplcx076, RUE, Sitting Tqgsixjgl58, RUE, Sitting Height6 ft Xkacyw185 lb BMI Dwuglutwwg77.7 kg/m2 BSA Calculated1.94 Tobacco Usea) Yes Patient encouraged to stop using tobacco productsYes Falls Screening (Age 18+)a) No falls within the last year Physical Exam Constitutional: alert and in no acute distress. Neck: neck is supple, symmetric, trachea midline, no masses and no thyromegaly . Pulmonary: no increased work of breathing or signs of respiratory distress and lungs clear to auscultation. Cardiovascular: carotid pulses 2+ bilaterally with no bruit , JVP was normal, no thrills , regular rhythm, normal S1 and S2, no murmurs , pedal pu (more content not included)... Normal Proactive Comfort Tobacco Screening.on 023 Fall risk assessment a) No falls within the last year [facility] marianne 250 DO Work Phone: Tobacco use status CPHS a) Yes M P-[facility]u marianne 250 DO Work Phone: Tobacco Screening. Yes MP-[facility]-Sandu marianne 250 DO Work Phone: Basic Metabolic Panelon 05-2 Anion gap [Moles/Vol] 12.2 mmol/L Normal 6.0-15.0 [facility] Comment on above: Performed By: #### C BC, BMP ####[facility] [id number] [place] [address] [facility] Calcium [Mass/Vol] 7.8 mg/dL Low 8.6-10.3 [facility] Comment on above: Performed By: #### C BC, BMP ####[facility] [place] [address] [facility] Chloride [Moles/Vol] 108 mmol/L High 98-107 [facility] Comment on above: Performed By: #### C BC, BMP ####[facility] [place] [address] [facility] CO2 [Moles/Vol] 21.0 mmol/L Normal 21.0-31.0 [facility] Comment on above: Performed By: #### C BC, BMP ####[facility] [place] [address] [facility] Creatinine [Mass/Vol] 4.82 mg/dL High 0.70-1.30 [facility] Comment on above: Performed By: #### C BC, BMP ####[facility] [place] [address] [place] Creatinine Clr Calc Pharmacy 22.44 [facility] Comment on above: Result Comment: PERF ORMED BY:[place] [address] [address] [place], [place] [phone] MEDICAL DIRECTORLEVY GILES M.D. Performed By: #### C BC, BMP ####[place] [place] [address] [place] GFR/1.73 sq M.predicted MDRD (S/P/Bld) [Vol rate/Area] 15.059 mL/min/{1.73_m2} Normal [facility] Comment on above: Performed By: #### C BC, BMP ####[place] [address] [place] [id number] [facility] Glucose [Mass/Vol] 176 mg/dL High 70-100 [facility] Comment on above: Result Comment: [place] Glucose Reference Range is dependent on time and content of last meal. Glucose of more than 200 mg/dL in a nonstressed, ambulatory subject supports the diagnosis of Diabetes Mellitus. ADA recommended reference range Performed By: #### C NEREIDA, BMP ####[place] [address] [place] [id number] [facility] Potassium [Moles/Vol] 4.2 mmol/L Normal 3.5-5.1 [facility] Comment on above: Performed By: #### C NEREIDA, BMP ####[place] [id number] [facility] Sodium [Moles/Vol] 137 mmol/L Normal 136-145 [facility] Comment on above: Performed By: #### C NEREIDA, BMP ####[place] [id number] [facility] Urea nitrogen [Mass/Vol] 65 mg/dL High 7-[address] [facility] Comment on above: Performed By: #### C NEREIDA, BMP ####[place] [id number] [facility] Basophils Auto (Bld) [#/Vol] Ordered By: Kim Renteria on 01-09-2023 Basophils (Bld) [#/Vol] 0.1 10*3/uL 0.0-0.[address] [facility] Basophils/100 WBC Auto (Bld) Ordered By: Kim Renteria on 01-09-2023 Basophils/100 WBC (Bld) 1.4 % . [facility] Calcium [Mass/volume] in Ser um or PlasmaOrdered By: iKm Renteria on 01-09-2023 Calcium [Mass/Vol] 7.8 mg/dL 8.6-10.3 [facility] Carbon dioxide, total [Moles /volume] in Serum or PlasmaOrdered By: Kim Renteria on 01-09-2023 CO2 [Moles/Vol] 21.0 mmol/L 21.0-31.0 [facility] Chloride [Moles/volume] in S gretta or PlasmaOrdered By: Kim Renteria on 01-09-2023 Chloride [Moles/Vol] 108 mmol/L 98-107 [facility] Complete Blood Count Auto Di ffon 01-09-2023 Basophils (Bld) [#/Vol] 0.1 10*3/uL Normal 0.0-0.[address] [facility] Comment on above: Result Comment: PERF ORMED BY:[address] [place], [place] [phone] MEDICAL DIRECTORLEVY GILES M.D. Performed By: #### C BC, BMP ####[address] Basophils/100 WBC (Bld) 1.4 % Normal . [facility] Comment on above: Performed By: #### C BC, BMP ####[address] Eosinophils (Bld) [#/Vol] 0.2 10*3/uL Normal 0.0-0.[address] [facility] Comment on above: Performed By: #### C BC, BMP ####[address] Eosinophils/100 WBC (Bld) 2.7 % Normal . [facility] Comment on above: Performed By: #### C BC, BMP ####[address] Erythrocyte distribution width (RBC) [Ratio] 13.4 % Normal 12.0-14.[address] [facility] Comment on above: Performed By: #### C BC, BMP ####[address] Hematocrit (Bld) [Volume fraction] 24.7 % Low 38.8-50.[address] [facility] Comment on above: Performed By: #### C BC, BMP ####[address] Hemoglobin (Bld) [Mass/Vol] 8.7 g/dL Low 13.0-17.[address] [facility] Comment on above: Performed By: #### C NEREIDA, BMP ####[address] Lymphocytes (Bld) [#/Vol] 1.0 10*3/uL Normal 1.00-4.[address] [facility] Comment on above: Performed By: #### C NEREIAD, BMP ####[address] Lymphocytes/100 WBC (Bld) 14.8 % Normal . [facility] Comment on above: Performed By: #### C NEREIDA, BMP ####[address] MCH (RBC) [Entitic mass] 30.6 pg Normal 27.5-35.[address] [facility] Comment on above: Performed By: #### C NEREIDA, BMP ####[address] MCV (RBC) [Entitic vol] 87.0 fL Normal 83.5-101 [facility] Comment on above: Performed By: #### C NEREIDA, BMP ####[address] Mean Corpuscular HGB Conc 35.2 g/dL Normal 32.5-35.[address] [facility] Comment on above: Performed By: #### C NEREIDA, BMP ####[address] Monocytes (Bld) [#/Vol] 0.5 10*3/uL Normal 0.0-0.[address] [facility] Comment on above: Performed By: #### C NEREIDA, BMP ####[address] Monocytes/100 WBC (Bld) 7.2 % Normal . [facility] Comment on above: Performed By: #### C NEREIDA, BMP ####[address] [address] [facility] Neutrophils (Bld) [#/Vol] 5.0 10*3/uL Normal 1.8-7.[address] [facility] Comment on above: Performed By: #### C NEREIDA, BMP ####[address] [address] [facility] Neutrophils/100 WBC (Bld) 73.9 % Normal . [facility] Comment on above: Performed By: #### C NEREIDA, BMP ####[address] [address] [facility] NRBC% 0.0 /100{WBC} Normal 0-0.[address] [facility] Comment on above: Performed By: #### C NEREIDA, BMP ####[address] [address] [facility] Platelet mean volume (Bld) [Entitic vol] 7.9 fL Normal 6.6-10.[address] [facility] Comment on above: Performed By: #### C NEREIDA, BMP ####[address] [address] [facility] Platelets (Bld) [#/Vol] 207 10*3/uL Normal 150-[address] [facility] Comment on above: Performed By: #### C NEREIDA, BMP ####[address] [address] [facility] RBC (Bld) [#/Vol] 2.84 10*6/uL Low 3.90-5.60 [facility] Comment on above: Performed By: #### C NEREIDA, BMP ####[address] [address] [facility] WBC (Bld) [#/Vol] 6.7 10*3/uL Normal 4.1-10.5 [facility] Comment on above: Performed By: #### C NEREIDA, BMP ####[address] [address] [place] Creatinine [Mass/volume] in Serum or PlasmaOrdered By: Kim Renteria on 01-09-2023 Creatinine [Mass/Vol] 4.82 mg/dL 0.70-1.30 [facility] Eosinophils Auto (Bld) [#/Vo l]Ordered By: Kim Renteria on 01-09-2023 Eosinophils (Bld) [#/Vol] 0.2 10*3/uL 0.0-0.[address] [facility] Eosinophils/100 WBC Auto (Bl d)Ordered By: Kim Renteria on 01-09-2023 Eosinophils/100 WBC (Bld) 2.7 % . [facility] Erythrocyte distribution wid th Auto (RBC) [Ratio]Ordered By: Kim Renteria on 01-09-2023 Erythrocyte distribution width (RBC) [Ratio] 13.4 % 12.0-14.[address] [facility] Glucose Glucometer (BldC) [M ass/Vol]Ordered By: Justino Boss on 01-09-2023 Glucose [Mass/Vol] 184 mg/dL [facility] Comment on above: Random Glucose Refer ence Range is dependent on time and content of last meal. Glucose of more than 200 mg/dL in a nonstressed, ambulatory subject supports the diagnosis of Diabetes Mellitus. Glucose Poct Glucometerson 0 01-09-2023 Commemt1 Glu2: Cleaned Meter Normal [facility] Comment on above: Result Comment: PERF ORMED BY:[facility] [place], [place] [phone] MEDICAL DIRECTORELVY GILES M.D. Performed By: #### G LULS ####Point of Care testing, Glucose [Mass/Vol] 184 mg/dL Normal [facility] Comment on above: Result Comment: Elizabet bello Glucose Reference Range is dependent on time and content of last meal. Glucose of more than 200 mg/dL in a nonstressed, ambulatory subject supports the diagnosis of Diabetes Mellitus. Performed By: #### G LULS ####Point of Care testing, Glucose [Mass/Vol] 260 mg/dL Normal [facility] Comment on above: Result Comment: [place] om Glucose Reference Range is dependent on time and content of last meal. Glucose of more than 200 mg/dL in a nonstressed, ambulatory subject supports the diagnosis of Diabetes Mellitus.PERFORMED BY:[place] [address] [address] [place], [place] [phone] MEDICAL DIRECTORLEVY GILES M.D. Performed By: #### G LULS ####Point of Care testing, Glucose [Mass/Vol] 337 mg/dL Normal [facility] Comment on above: Result Comment: [place] [facility] Glucose Reference Range is dependent on time and content of last meal. Glucose of more than 200 mg/dL in a nonstressed, ambulatory subject supports the diagnosis of Diabetes Mellitus.PERFORMED BY:[place] [address] [address]OOKLYNR[address]ríguezEsaJULIETTECHIC[place]O, [place] [phone] MEDICAL DIRECTORLEVY GILES M.D. Performed By: #### G LULS ####Point of Care testing, Glucose [Mass/Vol] 187 mg/dL Normal [facility] Comment on above: Result Comment: [place] [facility] Glucose Reference Range is dependent on time and content of last meal. Glucose of more than 200 mg/dL in a nonstressed, ambulatory subject supports the diagnosis of Diabetes Mellitus.PERFORMED BY:[place] [address] [address]OOKLYNR[address]ríguezEsaJULIETTE, [place] [phone] MEDICAL LEONELA GILES M.D. Performed By: #### G LULS ####Point of Care testing, Glucose [Mass/volume] in Ser um or PlasmaOrdered By: Kim Renteria on 01-09-2023 Glucose [Mass/Vol] 176 mg/dL 70-100 [facility] Comment on above: ADA recommended refe rence rangeRandom Glucose Reference Range is dependent on time and content of last meal. Glucose of more than 200 mg/dL in a nonstressed, ambulatory subject supports the diagnosis of Diabetes Mellitus. Hematocrit Auto (Bld) [Volum e fraction]Ordered By: Kim Renteria on 01-09-2023 Hematocrit (Bld) [Volume fraction] 24.7 % 38.8-50.[address] [facility] Hemoglobin [Mass/volume] in BloodOrdered By: Kim Renteria on 01-09-2023 Hemoglobin (Bld) [Mass/Vol] 8.7 g/dL 13.0-17.[address] [facility] Leukocytes [#/volume] correc celena for nucleated erythrocytes in Blood by Automated counOrdered By: Kim Renteria on 01-09-2023 WBC corrected for nucl RBC Auto (Bld) [#/Vol] 6.7 10*3/uL 4.1-10.[address] [facility] Lymphocytes Auto (Bld) [#/Vo l]Ordered By: Kim Renteria on 01-09-2023 Lymphocytes (Bld) [#/Vol] 1.0 10*3/uL 1.00-4.[address] [facility] Lymphocytes/100 WBC Auto (Bl d)Ordered By: Kim Renteria on 01-09-2023 Lymphocytes/100 WBC (Bld) 14.8 % . [facility] MCH Auto (RBC) [Entitic mass ]Ordered By: Kim Renteria on 01-09-2023 MCH (RBC) [Entitic mass] 30.6 pg 27.5-35.[address] [facility] MCHC Auto (RBC) [Mass/Vol]Or dered By: Kim Renteria on 01-09-2023 MCHC (RBC) [Mass/Vol] 35.2 g/dL 32.5-35.6 [facility] MCV Auto (RBC) [Entitic vol] Ordered By: Kim Renteria on 01-09-2023 MCV (RBC) [Entitic vol] 87.0 fL 83.5-101 [facility] Monocytes Auto (Bld) [#/Vol] Ordered By: Kim Renteria on 01-09-2023 Monocytes (Bld) [#/Vol] 0.5 10*3/uL 0.0-0.[address] [facility] Monocytes/100 WBC Auto (Bld) Ordered By: Kim Renteria on 01-09-2023 Monocytes/100 WBC (Bld) 7.2 % . [facility] Neutrophils Auto (Bld) [#/Vo l]Ordered By: Kim Renteria on 01-09-2023 Neutrophils (Bld) [#/Vol] 5.0 10*3/uL 1.8-7.[address] [facility] Neutrophils/100 WBC Auto (Bl d)Ordered By: Kim Renteria on 01-09-2023 Neutrophils/100 WBC (Bld) 73.9 % . [facility] No Panel InformationOrdered By: Justino Boss on 01-09-2023 Bedside Glucose Comment Glu2: cleaned meter [facility] No Panel InformationOrdered By: Kim Renteria on 01-09-2023 Estimated GFR (CKD-EPI) 15.059 mL/Min [facility] Creatinine Clearance (Chem 22.[address] [facility] Nucleated erythrocytes [Pres ence] in Blood by Automated countOrdered By: Kim Renteria on 01-09-2023 Nucleated RBC Auto Ql (Bld) 0.0 /100{WBC} 0-0.[address] [facility] Platelet mean volume Auto (B ld) [Entitic vol]Ordered By: Kim Renteria on 01-09-2023 Platelet mean volume (Bld) [Entitic vol] 7.9 fL 6.6-10.[address] [facility] Platelets Auto (Bld) [#/Vol] Ordered By: Kim Renteria on 01-09-2023 Platelets (Bld) [#/Vol] 207 10*3/uL 150-[address] [facility] Potassium [Moles/volume] in Serum or PlasmaOrdered By: Kim Renteria on 01-09-2023 Potassium [Moles/Vol] 4.2 mmol/L 3.5-5.1 [facility] RBC Auto (Bld) [#/Vol]Ordere d By: Kim Renteria on 01-09-2023 RBC (Bld) [#/Vol] 2.84 10*6/uL 3.90-5.60 [facility] Serum or plasma anion gap de terminationOrdered By: Kim Renteria on 01-09-2023 Anion gap [Moles/Vol] 12.2 mmol/L 6.0-15.0 [facility] Sodium [Moles/volume] in Ser um or PlasmaOrdered By: Kim Renteria on 01-09-2023 Sodium [Moles/Vol] 137 mmol/L 136-145 [facility] Troponin I High Sensitivityo n 01-09-2023 Troponin I High Sensitivity 25.1 pg/mL High 0.0-20.[address] [facility] Comment on above: Result Comment: PERF ORMED BY:[address] [place], [place] [phone] MEDICAL DIRECTORLEVY GILES M.D. Performed By: #### H S TROP ####[address] [address] [facility] Troponin I High Sensitivity 25.9 pg/mL High 0.0-20.[address] [facility] Comment on above: Result Comment: PERF ORMED BY:[address] [place], [place] [phone] MEDICAL DIRECTORLEVY GILES M.D. Performed By: #### H S TROP ####[address] [address] [facility] Troponin I.cardiac [Mass/vol ume] in Serum or Plasma by Detection limit <= 0.01 ng/Ordered By: Kim Renteria on 01-09-2023 Troponin I.cardiac DL <= 0.01 ng/mL [Mass/Vol] 25.1 pg/mL 0.0-20.[address] [facility] Urea nitrogen [Mass/volume] in Serum or PlasmaOrdered By: Kim Renteria on 01-09-2023 Urea nitrogen [Mass/Vol] 65 mg/dL 03-[address] [facility] WBC Auto (Bld) [#/Vol]Ordere d By: Kim Renteria on 01-09-2023 WBC (Bld) [#/Vol] 6.7 10*3/uL 4.1-10.5 [facility] Albumin [Mass/volume] in Ser um or Plasma by Bromocresol green (BCG) dye binding methoOrdered By: Angel Mejía on 12-25-2022 Albumin BCG dye [Mass/Vol] 3.4 g/dL 3.5-5.[address] [facility] Calcium [Mass/volume] in Ser um or PlasmaOrdered By: Angel Mejía on 12-25-2022 Calcium [Mass/Vol] 8.0 mg/dL 8.6-10.3 [facility] Carbon dioxide, total [Moles /volume] in Serum or PlasmaOrdered By: Angel Mejía on 12-25-2022 CO2 [Moles/Vol] 21.4 mmol/L 21.0-31.0 [facility] Chloride [Moles/volume] in S gretta or PlasmaOrdered By: Angel Mejía on 12-25-2022 Chloride [Moles/Vol] 104 mmol/L 98-107 [facility] Creatinine [Mass/volume] in Serum or PlasmaOrdered By: Angel Mejía on 12-25-2022 Creatinine [Mass/Vol] 4.68 mg/dL 0.70-1.30 [facility] Erythrocyte distribution wid th Auto (RBC) [Ratio]Ordered By: Angel Mejía on 12-25-2022 Erythrocyte distribution width (RBC) [Ratio] 13.4 % 12.0-14.[address] [facility] Ferritinon 12-25-2022 Ferritin [Mass/Vol] 87.5 ng/mL Normal 23.9-336.2 [facility] Comment on above: Order Comment: PT IS FATSING Reason for Exam Chronic kidney disease, stage 5;Lauri hy kid w cr kid I-IV;Hyp Result Comment: PERF ORMED BY:[facility] [facility], [place] [phone] MEDICAL DIRECTORLEVY GILES M.D. Performed By: #### F E and TIBC, RENAL, ITALO ####[facility] [place] [address] [facility] Ferritin [Mass/volume] in Se rum or PlasmaOrdered By: Angel Mejía on 12-25-2022 Ferritin [Mass/Vol] 87.5 ng/mL 23.9-336.2 [facility] Glucose [Mass/volume] in Ser um or PlasmaOrdered By: Angel Mejía on 12-25-2022 Glucose [Mass/Vol] 187 mg/dL 70-100 [facility] Comment on above: ADA recommended refe rence rangeRandom Glucose Reference Range is dependent on time and content of last meal. Glucose of more than 200 mg/dL in a nonstressed, ambulatory subject supports the diagnosis of Diabetes Mellitus. Hematocrit Auto (Bld) [Volum e fraction]Ordered By: Angel Mejía on 12-25-2022 Hematocrit (Bld) [Volume fraction] 29.0 % 38.8-50.[address] [facility] Hemoglobin [Mass/volume] in BloodOrdered By: Angel Mejía on 12-25-2022 Hemoglobin (Bld) [Mass/Vol] 9.8 g/dL 13.0-17.[address] [facility] Hemogram CBC Without Diffon 12-25-2022 Erythrocyte distribution width (RBC) [Ratio] 13.4 % Normal 12.0-14.[address] [facility] Comment on above: Order Comment: Reaso n for Exam Chronic kidney disease, stage 5;Lauri hy kid w cr kid I-IV;Hyp Performed By: #### C BCNO ####[address] Hematocrit (Bld) [Volume fraction] 29.0 % Low 38.8-50.[address] [facility] Comment on above: Order Comment: Reaso n for Exam Chronic kidney disease, stage 5;Lauri hy kid w cr kid I-IV;Hyp Performed By: #### C BCNO ####[place] [id number] [facility] Hemoglobin (Bld) [Mass/Vol] 9.8 g/dL Low 13.0-17.[address] [facility] Comment on above: Order Comment: Reaso n for Exam Chronic kidney disease, stage 5;Lauri hy kid w cr kid I-IV;Hyp Performed By: #### C BCNO ####[place] [id number] [facility] MCH (RBC) [Entitic mass] 29.9 pg Normal 27.5-35.[address] [facility] Comment on above: Order Comment: Reaso n for Exam Chronic kidney disease, stage 5;Lauri hy kid w cr kid I-IV;Hyp Performed By: #### C BCNO ####[address] [address] [facility] MCV (RBC) [Entitic vol] 88.3 fL Normal 83.5-101 [facility] Comment on above: Order Comment: Reaso n for Exam Chronic kidney disease, stage 5;Lauri hy kid w cr kid I-IV;Hyp Performed By: #### C BCNO ####[place] [id number] [facility] Mean Corpuscular HGB Conc 33.9 g/dL Normal 32.5-35.[address] [facility] Comment on above: Order Comment: Reaso n for Exam Chronic kidney disease, stage 5;Lauri hy kid w cr kid I-IV;Hyp Performed By: #### C BCNO ####[address] [address] [facility] Platelet mean volume (Bld) [Entitic vol] 8.4 fL Normal 6.6-10.[address] [facility] Comment on above: Order Comment: Reaso n for Exam Chronic kidney disease, stage 5;Lauri hy kid w cr kid I-IV;Hyp Result Comment: PERF ORMED BY:[address] [place], [place] [phone] MEDICAL DIRECTORLEVY GILES M.D. Performed By: #### C BCNO ####[address] [address] [facility] Platelets (Bld) [#/Vol] 160 10*3/uL Normal 150-[address] [facility] Comment on above: Order Comment: Reaso n for Exam Chronic kidney disease, stage 5;Lauri hy kid w cr kid I-IV;Hyp Performed By: #### C BCNO ####[address] [address] [facility] RBC (Bld) [#/Vol] 3.28 10*6/uL Low 3.90-5.60 [facility] Comment on above: Order Comment: Reaso n for Exam Chronic kidney disease, stage 5;Lauri hy kid w cr kid I-IV;Hyp Performed By: #### C BCNO ####[place] [address] [place] [address] [facility] WBC (Bld) [#/Vol] 7.4 10*3/uL Normal 4.1-10.5 [facility] Comment on above: Order Comment: Reaso n for Exam Chronic kidney disease, stage 5;Lauri hy kid w cr kid I-IV;Hyp Performed By: #### C BCNO ####[address] [address] [facility] Iron [Mass/volume] in Serum or PlasmaOrdered By: Angel Mejía on 12-25-2022 Iron [Mass/Vol] 61 ug/dL 50-[address] [facility] Iron and TIBC Profileon % Iron Saturation 25.7 % Normal 20-50 [facility] Comment on above: Order Comment: PT IS FATSING Reason for Exam Chronic kidney disease, stage 5;Lauri hy kid w cr kid I-IV;Hyp Performed By: #### F E and TIBC, RENAL, ITALO ####[address] [address] [facility] Iron [Mass/Vol] 61 ug/dL Normal 50-[address] [facility] Comment on above: Order Comment: PT IS FATSING Reason for Exam Chronic kidney disease, stage 5;Lauri hy kid w cr kid I-IV;Hyp Performed By: #### F E and TIBC, RENAL, ITALO ####[address] [address] [facility] Total Iron Binding Capacity 237 ug/dL Low 255-[address] [facility] Comment on above: Order Comment: PT IS FATSING Reason for Exam Chronic kidney disease, stage 5;Lauri hy kid w cr kid I-IV;Hyp Performed By: #### F E and TIBC, RENAL, ITALO ####[address] [address] [facility] Transferrin [Mass/Vol] 169 mg/dL Low 203-362 [facility] Comment on above: Order Comment: PT IS FATSING Reason for Exam Chronic kidney disease, stage 5;Lauri hy kid w cr kid I-IV;Hyp Performed By: #### F E and TIBC, RENAL, ITALO ####[facility] [id number] [place] [id number] [facility] Iron binding capacity [Mass/ volume] in Serum or PlasmaOrdered By: Angel Mejía on 12-25-2022 Iron binding capacity [Mass/Vol] 237 ug/dL 255-[address] [facility] Iron saturation [Mass Fracti on] in Serum or PlasmaOrdered By: Angel Mejía on 12-25-2022 Iron saturation [Mass fraction] 25.7 % 20-[address] [facility] Leukocytes [#/volume] correc celena for nucleated erythrocytes in Blood by Automated counOrdered By: Angel Mejía on 12-25-2022 WBC corrected for nucl RBC Auto (Bld) [#/Vol] 7.4 10*3/uL 4.1-10.[address] [facility] MCH Auto (RBC) [Entitic mass ]Ordered By: Angel Mejía on 12-25-2022 MCH (RBC) [Entitic mass] 29.9 pg 27.5-35.[address] [facility] MCHC Auto (RBC) [Mass/Vol]Or dered By: Angel Mejía on 12-25-2022 MCHC (RBC) [Mass/Vol] 33.9 g/dL 32.5-35.6 [facility] MCV Auto (RBC) [Entitic vol] Ordered By: Angel Mejía on 12-25-2022 MCV (RBC) [Entitic vol] 88.3 fL 83.5-101 [facility] No Panel InformationOrdered By: Angel Mejía on 12-25-2022 Estimated GFR (CKD-EPI) 15.601 mL/Min [facility] Creatinine Clearance (Chem N/A [facility] Parathyrin.intact [Mass/volu me] in Serum or PlasmaOrdered By: Angel Mejía on 12-25-2022 Parathyrin.intact [Mass/Vol] 468.7 pg/mL [facility] Parathyroid Hormone Intacton 12-25-2022 Parathyroid Hormone Intact 468.7 pg/mL High [facility] Comment on above: Order Comment: Reaso n for Exam Chronic kidney disease, stage 5;Lauri hy kid w cr kid I-IV;Hyp Result Comment: PERF ORMED BY:[facility] [place], [place] [phone] MEDICAL DIRECTORLEVY GILES M.D. Performed By: #### P TH ####[facility] [place] [address] [facility] Phosphate [Mass/volume] in S gretta or PlasmaOrdered By: Angel Joyce on 12-25-2022 Phosphate [Mass/Vol] 6.0 mg/dL 3.7-7.2 [facility] Platelet mean volume Auto (B ld) [Entitic vol]Ordered By: Angel Joyce on 12-25-2022 Platelet mean volume (Bld) [Entitic vol] 8.4 fL 6.6-10.[address] [facility] Platelets Auto (Bld) [#/Vol] Ordered By: Angel Joyce on 12-25-2022 Platelets (Bld) [#/Vol] 160 10*3/uL 150-[address] [facility] Potassium [Moles/volume] in Serum or PlasmaOrdered By: Angel Joyce on 12-25-2022 Potassium [Moles/Vol] 5.1 mmol/L 3.5-5.1 [facility] RBC Auto (Bld) [#/Vol]Ordere d By: Angel Joyce on 12-25-2022 RBC (Bld) [#/Vol] 3.28 10*6/uL 3.90-5.60 [facility] Renal Function Panelon 12-25 Albumin [Mass/Vol] 3.4 g/dL Low 3.5-5.7 [facility] Comment on above: Order Comment: PT IS FATSING Reason for Exam Chronic kidney disease, stage 5;Lauri hy kid w cr kid I-IV;Hyp Performed By: #### F E and TIBC, RENAL, ITALO ####[facility] [place] [address] [facility] Anion gap [Moles/Vol] 13.7 mmol/L Normal 6.0-15.0 [facility] Comment on above: Order Comment: PT IS FATSING Reason for Exam Chronic kidney disease, stage 5;Lauri hy kid w cr kid I-IV;Hyp Performed By: #### F E and TIBC, RENAL, ITALO ####[place] [address] [place] [id number] [facility] Calcium [Mass/Vol] 8.0 mg/dL Low 8.6-10.3 [facility] Comment on above: Order Comment: PT IS FATSING Reason for Exam Chronic kidney disease, stage 5;Lauri hy kid w cr kid I-IV;Hyp Performed By: #### F E and TIBC, RENAL, ITALO ####[place] [id number] [facility] Chloride [Moles/Vol] 104 mmol/L Normal 98-107 [facility] Comment on above: Order Comment: PT IS FATSING Reason for Exam Chronic kidney disease, stage 5;Lauri hy kid w cr kid I-IV;Hyp Performed By: #### F E and TIBC, RENAL, ITALO ####[place] [id number] [facility] CO2 [Moles/Vol] 21.4 mmol/L Normal 21.0-31.0 [facility] Comment on above: Order Comment: PT IS FATSING Reason for Exam Chronic kidney disease, stage 5;Lauri hy kid w cr kid I-IV;Hyp Performed By: #### F E and TIBC, RENAL, ITALO ####[place] [id number] [facility] Creatinine [Mass/Vol] 4.68 mg/dL High 0.70-1.30 [facility] Comment on above: Order Comment: PT IS FATSING Reason for Exam Chronic kidney disease, stage 5;Lauri hy kid w cr kid I-IV;Hyp Performed By: #### F E and TIBC, RENAL, ITALO ####[place] [id number] [facility] GFR/1.73 sq M.predicted MDRD (S/P/Bld) [Vol rate/Area] 15.601 mL/min/{1.73_m2} Normal [facility] Comment on above: Order Comment: PT IS FATSING Reason for Exam Chronic kidney disease, stage 5;Lauri hy kid w cr kid I-IV;Hyp Performed By: #### F E and TIBC, RENAL, ITALO ####[place] [address] [place] [address] [facility] Glucose [Mass/Vol] 187 mg/dL High 70-100 [facility] Comment on above: Order Comment: PT IS FATSING Reason for Exam Chronic kidney disease, stage 5;Lauri hy kid w cr kid I-IV;Hyp Result Comment: [facility] Glucose Reference Range is dependent on time and content of last meal. Glucose of more than 200 mg/dL in a nonstressed, ambulatory subject supports the diagnosis of Diabetes Mellitus. ADA recommended reference range Performed By: #### F E and TIBC, RENAL, ITALO ####[address] [address] [address] [facility] Phosphate [Mass/Vol] 6.0 mg/dL Normal 3.7-7.2 [facility] Comment on above: Order Comment: PT IS FATSING Reason for Exam Chronic kidney disease, stage 5;Lauri hy kid w cr kid I-IV;Hyp Performed By: #### F E and TIBC, RENAL, ITALO ####[address] [address] [facility] Potassium [Moles/Vol] 5.1 mmol/L Normal 3.5-5.1 [facility] Comment on above: Order Comment: PT IS FATSING Reason for Exam Chronic kidney disease, stage 5;Lauri hy kid w cr kid I-IV;Hyp Performed By: #### F E and TIBC, RENAL, ITALO ####[address] [address] [facility] Sodium [Moles/Vol] 134 mmol/L Low 136-145 [facility] Comment on above: Order Comment: PT IS FATSING Reason for Exam Chronic kidney disease, stage 5;Lauri hy kid w cr kid I-IV;Hyp Performed By: #### F E and TIBC, RENAL, ITALO ####[address] [address] [facility] Urea nitrogen [Mass/Vol] 57 mg/dL High 7-[address] [facility] Comment on above: Order Comment: PT IS FATSING Reason for Exam Chronic kidney disease, stage 5;Lauri hy kid w cr kid I-IV;Hyp Performed By: #### F E and TIBC, RENAL, ITALO ####[facility] [id number] [place] [address] [facility] Serum or plasma anion gap de terminationOrdered By: Angel Joyce on 12-25-2022 Anion gap [Moles/Vol] 13.7 mmol/L 6.0-15.0 [facility] Sodium [Moles/volume] in Ser um or PlasmaOrdered By: Angel Joyce on 12-25-2022 Sodium [Moles/Vol] 134 mmol/L 136-145 [facility] Transferrin [Mass/volume] in Serum or PlasmaOrdered By: Angel Joyce on 12-25-2022 Transferrin [Mass/Vol] 169 mg/dL 203-362 [facility] Urea nitrogen [Mass/volume] in Serum or PlasmaOrdered By: Angel Joyce on 12-25-2022 Urea nitrogen [Mass/Vol] 57 mg/dL 03-[address] [facility] Basophils Auto (Bld) [#/Vol] Ordered By: Rishi Berry on 12-18-2022 Basophils (Bld) [#/Vol] 0.1 10*3/uL 0.0-0.[address] [facility] Basophils/100 WBC Auto (Bld) Ordered By: Rishi Berry on 12-18-2022 Basophils/100 WBC (Bld) 1.7 % . [facility] Complete Blood Count Auto Di ffon 12-18-2022 Basophils (Bld) [#/Vol] 0.1 10*3/uL Normal 0.0-0.[address] [facility] Comment on above: Result Comment: PERF ORMED BY:[facility] [place], [place] [id number] MEDICAL LEONELA GILES M.D. Performed By: #### C BC ####[facility] [place] [id number] [facility] Basophils/100 WBC (Bld) 1.7 % Normal . [facility] Comment on above: Performed By: #### C BC ####[address] Eosinophils (Bld) [#/Vol] 0.2 10*3/uL Normal 0.0-0.[address] [facility] Comment on above: Performed By: #### C BC ####[address] Eosinophils/100 WBC (Bld) 2.5 % Normal . [facility] Comment on above: Performed By: #### C BC ####[address] Erythrocyte distribution width (RBC) [Ratio] 14.1 % Normal 12.0-14.[address] [facility] Comment on above: Performed By: #### C BC ####[address] Hematocrit (Bld) [Volume fraction] 27.7 % Low 38.8-50.[address] [facility] Comment on above: Performed By: #### C BC ####[address] Hemoglobin (Bld) [Mass/Vol] 9.4 g/dL Low 13.0-17.[address] [facility] Comment on above: Performed By: #### C BC ####[address] Lymphocytes (Bld) [#/Vol] 1.1 10*3/uL Normal 1.00-4.[address] [facility] Comment on above: Performed By: #### C BC ####[address] Lymphocytes/100 WBC (Bld) 13.5 % Normal . [facility] Comment on above: Performed By: #### C BC ####[address] MCH (RBC) [Entitic mass] 30.0 pg Normal 27.5-35.[address] [facility] Comment on above: Performed By: #### C BC ####[address] [place] [address] [facility] MCV (RBC) [Entitic vol] 88.2 fL Normal 83.5-101 [facility] Comment on above: Performed By: #### C BC ####[address] [address] [facility] Mean Corpuscular HGB Conc 34.0 g/dL Normal 32.5-35.[address] [facility] Comment on above: Performed By: #### C BC ####[address] [address] [facility] Monocytes (Bld) [#/Vol] 0.4 10*3/uL Normal 0.0-0.[address] [facility] Comment on above: Performed By: #### C BC ####[address] [address] [facility] Monocytes/100 WBC (Bld) 5.1 % Normal . [facility] Comment on above: Performed By: #### C BC ####[address] [address] [facility] Neutrophils (Bld) [#/Vol] 6.2 10*3/uL Normal 1.8-7.[address] [facility] Comment on above: Performed By: #### C BC ####[address] [address] [facility] Neutrophils/100 WBC (Bld) 77.2 % Normal . [facility] Comment on above: Performed By: #### C BC ####[address] [address] [facility] NRBC% 0.1 /100{WBC} Normal 0-0.[address] [facility] Comment on above: Performed By: #### C BC ####[address] [address] [facility] Platelet mean volume (Bld) [Entitic vol] 8.0 fL Normal 6.6-10.[address] [facility] Comment on above: Performed By: #### C BC ####[facility] [place] [address] [facility] Platelets (Bld) [#/Vol] 167 10*3/uL Normal 150-[address] [facility] Comment on above: Performed By: #### C BC ####[address] [place] [id number] [facility] RBC (Bld) [#/Vol] 3.15 10*6/uL Low 3.90-5.60 [facility] Comment on above: Performed By: #### C BC ####[address] [place] [id number] [facility] WBC (Bld) [#/Vol] 8.0 10*3/uL Normal 4.1-10.5 [facility] Comment on above: Performed By: #### C BC ####[place] [id number] [facility] Eosinophils Auto (Bld) [#/Vo l]Ordered By: Rishi Berry on 12-18-2022 Eosinophils (Bld) [#/Vol] 0.2 10*3/uL 0.0-0.[address] [facility] Eosinophils/100 WBC Auto (Bl d)Ordered By: Rishi Berry on 12-18-2022 Eosinophils/100 WBC (Bld) 2.5 % . [facility] Erythrocyte distribution wid th Auto (RBC) [Ratio]Ordered By: Rishi Berry on 12-18-2022 Erythrocyte distribution width (RBC) [Ratio] 14.1 % 12.0-14.[address] [facility] Glucose Glucometer (BldC) [M ass/Vol]Ordered By: Romain Mendoza on 12-18-2022 Glucose [Mass/Vol] 165 mg/dL [facility] Comment on above: Random Glucose Refer ence Range is dependent on time and content of last meal. Glucose of more than 200 mg/dL in a nonstressed, ambulatory subject supports the diagnosis of Diabetes Mellitus. Glucose Poct Glucometerson 0 12-18-2022 Commemt1 Glu2: Cleaned Meter Normal [facility] Comment on above: Result Comment: PERF ORMED BY:[facility] [place] [place] [phone] MEDICAL DIRECTORLEVY GILES M.D. Performed By: #### G LULS ####Point of Care testing, Glucose [Mass/Vol] 165 mg/dL Normal [facility] Comment on above: Result Comment: [facility] Glucose Reference Range is dependent on time and content of last meal. Glucose of more than 200 mg/dL in a nonstressed, ambulatory subject supports the diagnosis of Diabetes Mellitus. Performed By: #### G LULS ####Point of Care testing, Hematocrit Auto (Bld) [Volum e fraction]Ordered By: Rishi Berry on 12-18-2022 Hematocrit (Bld) [Volume fraction] 27.7 % 38.8-50.[address] [facility] Hemoglobin [Mass/volume] in BloodOrdered By: Rishi Berry on 12-18-2022 Hemoglobin (Bld) [Mass/Vol] 9.4 g/dL 13.0-17.[address] [facility] Leukocytes [#/volume] correc celena for nucleated erythrocytes in Blood by Automated counOrdered By: Rishi Berry on 12-18-2022 WBC corrected for nucl RBC Auto (Bld) [#/Vol] 8.0 10*3/uL 4.1-10.[address] [facility] Lymphocytes Auto (Bld) [#/Vo l]Ordered By: Rishi Berry on 12-18-2022 Lymphocytes (Bld) [#/Vol] 1.1 10*3/uL 1.00-4.[address] [facility] Lymphocytes/100 WBC Auto (Bl d)Ordered By: Rishi Berry on 12-18-2022 Lymphocytes/100 WBC (Bld) 13.5 % . [facility] MCH Auto (RBC) [Entitic mass ]Ordered By: Rishi Berry on 12-18-2022 MCH (RBC) [Entitic mass] 30.0 pg 27.5-35.[address] [facility] MCHC Auto (RBC) [Mass/Vol]Or dered By: Rishi Berry on 12-18-2022 MCHC (RBC) [Mass/Vol] 34.0 g/dL 32.5-35.6 [facility] MCV Auto (RBC) [Entitic vol] Ordered By: Rishi Berry on 12-18-2022 MCV (RBC) [Entitic vol] 88.2 fL 83.5-101 [facility] Monocytes Auto (Bld) [#/Vol] Ordered By: Rishi Berry on 12-18-2022 Monocytes (Bld) [#/Vol] 0.4 10*3/uL 0.0-0.[address] [facility] Monocytes/100 WBC Auto (Bld) Ordered By: Rishi Berry on 12-18-2022 Monocytes/100 WBC (Bld) 5.1 % . [facility] Neutrophils Auto (Bld) [#/Vo l]Ordered By: Rishi Berry on 12-18-2022 Neutrophils (Bld) [#/Vol] 6.2 10*3/uL 1.8-7.[address] [facility] Neutrophils/100 WBC Auto (Bl d)Ordered By: Rishi Berry on 12-18-2022 Neutrophils/100 WBC (Bld) 77.2 % . [facility] No Panel InformationOrdered By: Romain Mendoza on 12-18-2022 Bedside Glucose Comment Glu2: cleaned meter [facility] Nucleated erythrocytes [Pres ence] in Blood by Automated countOrdered By: Rishi Berry on 12-18-2022 Nucleated RBC Auto Ql (Bld) 0.1 /100{WBC} 0-0.[address] [facility] Platelet mean volume Auto (B ld) [Entitic vol]Ordered By: Rishi Berry on 12-18-2022 Platelet mean volume (Bld) [Entitic vol] 8.0 fL 6.6-10.[address] [facility] Platelets Auto (Bld) [#/Vol] Ordered By: Rishi Berry on 12-18-2022 Platelets (Bld) [#/Vol] 167 10*3/uL 150-[address] [facility] Potassium [Moles/volume] in Serum or PlasmaOrdered By: Yordy Garg on 12-18-2022 Potassium [Moles/Vol] 4.9 mmol/L Normal 3.5-5.1 [facility] Comment on above: Result Comment: PERF ORMED BY:[facility] [place], [place] [phone] MEDICAL DIRECTORLEVY GILES M.D. Performed By: #### K ####[facility] [id number] [place] [address] [facility] RBC Auto (Bld) [#/Vol]Ordere d By: Rishi Berry on 12-18-2022 RBC (Bld) [#/Vol] 3.15 10*6/uL 3.90-5.60 [facility] WBC Auto (Bld) [#/Vol]Ordere d By: Risih Berry on 12-18-2022 WBC (Bld) [#/Vol] 8.0 10*3/uL 4.1-10.5 [facility] US AV Fistulaon 12-03-2022 US AV Fistula Normal [facility] Albumin [Mass/volume] in Ser um or Plasma by Bromocresol green (BCG) dye binding methoOrdered By: Angel Mejía on 11-20-2022 Albumin BCG dye [Mass/Vol] 3.3 g/dL 3.5-5.[address] [facility] Calcium [Mass/volume] in Ser um or PlasmaOrdered By: Angel Joyce on 11-20-2022 Calcium [Mass/Vol] 8.0 mg/dL 8.6-10.3 [facility] Carbon dioxide, total [Moles /volume] in Serum or PlasmaOrdered By: Angel Ojyce on 11-20-2022 CO2 [Moles/Vol] 22.0 mmol/L 21.0-31.0 [facility] Chloride [Moles/volume] in S gretta or PlasmaOrdered By: Angel Joyce on 11-20-2022 Chloride [Moles/Vol] 107 mmol/L 98-107 [facility] Creatinine [Mass/volume] in Serum or PlasmaOrdered By: Angel Joyce on 11-20-2022 Creatinine [Mass/Vol] 4.21 mg/dL 0.70-1.30 [facility] Ferritinon 11-20-2022 Ferritin [Mass/Vol] 100.2 ng/mL Normal 23.9-336.2 [facility] Comment on above: Order Comment: Reaso n for Exam Chronic kidney disease, stage 5;Lauri hy kid w cr kid I-IV;Hyp PT IS NON FASTING Result Comment: PERF ORMED BY:[facility] [place], [place] [phone] MEDICAL DIRECTORLEVY GILES M.D. Performed By: #### F ER, RENAL, FE and TIBC ####[facility] [id number] [place] [address] [facility] Ferritin [Mass/volume] in Se rum or PlasmaOrdered By: Angel Mejía on 11-20-2022 Ferritin [Mass/Vol] 100.2 ng/mL 23.9-336.2 [facility] Glucose [Mass/volume] in Ser um or PlasmaOrdered By: Angel Mejía on 11-20-2022 Glucose [Mass/Vol] 167 mg/dL 70-100 [facility] Comment on above: ADA recommended refe rence rangeRandom Glucose Reference Range is dependent on time and content of last meal. Glucose of more than 200 mg/dL in a nonstressed, ambulatory subject supports the diagnosis of Diabetes Mellitus. Iron [Mass/volume] in Serum or PlasmaOrdered By: Angel Mejía on 11-20-2022 Iron [Mass/Vol] 48 ug/dL 50-[address] [facility] Iron and TIBC Profileon % Iron Saturation 21.7 % Normal 20-50 [facility] Comment on above: Order Comment: Reaso n for Exam Chronic kidney disease, stage 5;Lauri hy kid w cr kid I-IV;Hyp PT IS NON FASTING Performed By: #### F ER, RENAL, FE and TIBC ####[facility] [id number] [place] [address] [facility] Iron [Mass/Vol] 48 ug/dL Low 50-[address] [facility] Comment on above: Order Comment: Reaso n for Exam Chronic kidney disease, stage 5;Lauri hy kid w cr kid I-IV;Hyp PT IS NON FASTING Performed By: #### F ER, RENAL, FE and TIBC ####[facility] [place] [address] [place] Total Iron Binding Capacity 221 ug/dL Low 255-[address] [facility] Comment on above: Order Comment: Reaso n for Exam Chronic kidney disease, stage 5;Lauri hy kid w cr kid I-IV;Hyp PT IS NON FASTING Performed By: #### F ER, RENAL, FE and TIBC ####[facility] [id number] [place] [address] [facility] Transferrin [Mass/Vol] 158 mg/dL Low 203-362 [facility] Comment on above: Order Comment: Reaso n for Exam Chronic kidney disease, stage 5;Lauri hy kid w cr kid I-IV;Hyp PT IS NON FASTING Performed By: #### F ER, RENAL, FE and TIBC ####[facility] [id number] [place] [address] [facility] Iron binding capacity [Mass/ volume] in Serum or PlasmaOrdered By: Angel Joyce on 11-20-2022 Iron binding capacity [Mass/Vol] 221 ug/dL 255-[address] [facility] Iron saturation [Mass Fracti on] in Serum or PlasmaOrdered By: Angel Joyce on 11-20-2022 Iron saturation [Mass fraction] 21.7 % 20-[address] [facility] No Panel InformationOrdered By: Angel Georger on 11-20-2022 Estimated GFR (CKD-EPI) 17.714 mL/Min [facility] Creatinine Clearance (Chem N/A [facility] Phosphate [Mass/volume] in S gretta or PlasmaOrdered By: Angel Joyce on 11-20-2022 Phosphate [Mass/Vol] 6.0 mg/dL 3.7-7.2 [facility] Potassium [Moles/volume] in Serum or PlasmaOrdered By: Angel Joyce on 11-20-2022 Potassium [Moles/Vol] 4.5 mmol/L 3.5-5.1 [facility] Renal Function Panelon 11-20 Albumin [Mass/Vol] 3.3 g/dL Low 3.5-5.7 [facility] Comment on above: Order Comment: Reaso n for Exam Chronic kidney disease, stage 5;Lauri hy kid w cr kid I-IV;Hyp PT IS NON FASTING Performed By: #### F ER, RENAL, FE and TIBC ####[address] [address] [facility] Anion gap [Moles/Vol] 13.5 mmol/L Normal 6.0-15.0 [facility] Comment on above: Order Comment: Reaso n for Exam Chronic kidney disease, stage 5;Lauri hy kid w cr kid I-IV;Hyp PT IS NON FASTING Performed By: #### F ER, RENAL, FE and TIBC ####[address] [address] [facility] Calcium [Mass/Vol] 8.0 mg/dL Low 8.6-10.3 [facility] Comment on above: Order Comment: Reaso n for Exam Chronic kidney disease, stage 5;Lauri hy kid w cr kid I-IV;Hyp PT IS NON FASTING Performed By: #### F ER, RENAL, FE and TIBC ####[address] [address] [facility] Chloride [Moles/Vol] 107 mmol/L Normal 98-107 [facility] Comment on above: Order Comment: Reaso n for Exam Chronic kidney disease, stage 5;Lauri hy kid w cr kid I-IV;Hyp PT IS NON FASTING Performed By: #### F ER, RENAL, FE and TIBC ####[address] [address] [facility] CO2 [Moles/Vol] 22.0 mmol/L Normal 21.0-31.0 [facility] Comment on above: Order Comment: Reaso n for Exam Chronic kidney disease, stage 5;Lauri hy kid w cr kid I-IV;Hyp PT IS NON FASTING Performed By: #### F ER, RENAL, FE and TIBC ####[address] [address] [facility] Creatinine [Mass/Vol] 4.21 mg/dL High 0.70-1.30 [facility] Comment on above: Order Comment: Reaso n for Exam Chronic kidney disease, stage 5;Lauri hy kid w cr kid I-IV;Hyp PT IS NON FASTING Performed By: #### F ER, RENAL, FE and TIBC ####[facility] [place] [address] [facility] GFR/1.73 sq M.predicted MDRD (S/P/Bld) [Vol rate/Area] 17.714 mL/min/{1.73_m2} Normal [facility] Comment on above: Order Comment: Reaso n for Exam Chronic kidney disease, stage 5;Lauri hy kid w cr kid I-IV;Hyp PT IS NON FASTING Performed By: #### F ER, RENAL, FE and TIBC ####[address] [place] [address] [facility] Glucose [Mass/Vol] 167 mg/dL High 70-100 [facility] Comment on above: Order Comment: Reaso n for Exam Chronic kidney disease, stage 5;Lauri hy kid w cr kid I-IV;Hyp PT IS NON FASTING Result Comment: [facility] Glucose Reference Range is dependent on time and content of last meal. Glucose of more than 200 mg/dL in a nonstressed, ambulatory subject supports the diagnosis of Diabetes Mellitus. ADA recommended reference range Performed By: #### F ER, RENAL, FE and TIBC ####[address] [place] [address] [facility] Phosphate [Mass/Vol] 6.0 mg/dL Normal 3.7-7.2 [facility] Comment on above: Order Comment: Reaso n for Exam Chronic kidney disease, stage 5;Lauri hy kid w cr kid I-IV;Hyp PT IS NON FASTING Performed By: #### F ER, RENAL, FE and TIBC ####[address] [place] [address] [facility] Potassium [Moles/Vol] 4.5 mmol/L Normal 3.5-5.1 [facility] Comment on above: Order Comment: Reaso n for Exam Chronic kidney disease, stage 5;Lauri hy kid w cr kid I-IV;Hyp PT IS NON FASTING Performed By: #### F ER, RENAL, FE and TIBC ####[address] [place] [address] [place] Sodium [Moles/Vol] 138 mmol/L Normal 136-145 [facility] Comment on above: Order Comment: Reaso n for Exam Chronic kidney disease, stage 5;Lauri hy kid w cr kid I-IV;Hyp PT IS NON FASTING Performed By: #### F ER, RENAL, FE and TIBC ####[facility] [id number] Urea nitrogen [Mass/Vol] 64 mg/dL High 03-[address] [facility] Comment on above: Order Comment: Reaso n for Exam Chronic kidney disease, stage 5;Lauri hy kid w cr kid I-IV;Hyp PT IS NON FASTING Performed By: #### F ER, RENAL, FE and TIBC ####[facility] [id number] Serum or plasma anion gap de terminationOrdered By: Angel Mejía on 11-20-2022 Anion gap [Moles/Vol] 13.5 mmol/L 6.0-15.0 [facility] Sodium [Moles/volume] in Ser um or PlasmaOrdered By: Angel Mejía on 11-20-2022 Sodium [Moles/Vol] 138 mmol/L 136-145 [facility] Transferrin [Mass/volume] in Serum or PlasmaOrdered By: Angel Mejía on 11-20-2022 Transferrin [Mass/Vol] 158 mg/dL 203-362 [facility] Urea nitrogen [Mass/volume] in Serum or PlasmaOrdered By: Angel Mejía on 11-20-2022 Urea nitrogen [Mass/Vol] 64 mg/dL 03-[address] [facility] Activated partial thrombopla stin time (aPTT) in platelet poor plasma by coagulation aOrdered By: Denilson Gomez on 11-12-2022 aPTT Coag (PPP) [Time] 38.0 s 25.1-36.5 [facility] Albumin [Mass/volume] in Ser um or Plasma by Bromocresol green (BCG) dye binding methoOrdered By: Denilson Gomez on 11-12-2022 Albumin BCG dye [Mass/Vol] 3.2 g/dL 3.5-5.[address] [facility] Basophils Auto (Bld) [#/Vol] Ordered By: Denilson Gomez on 11-12-2022 Basophils (Bld) [#/Vol] 0.1 10*3/uL 0.0-0.[address] [facility] Basophils/100 WBC Auto (Bld) Ordered By: Denilson Gomez on 11-12-2022 Basophils/100 WBC (Bld) 1.4 % . [facility] Calcium [Mass/volume] in Ser um or PlasmaOrdered By: Denilson Gomez on 11-12-2022 Calcium [Mass/Vol] 8.2 mg/dL 8.6-10.3 [facility] Carbon dioxide, total [Moles /volume] in Serum or PlasmaOrdered By: Denilson Gomez on 11-12-2022 CO2 [Moles/Vol] 22.5 mmol/L 21.0-31.0 [facility] Chloride [Moles/volume] in S gretta or PlasmaOrdered By: Denilson Gomez on 11-12-2022 Chloride [Moles/Vol] 108 mmol/L 98-107 [facility] Cholesterol [Mass/volume] in Serum or PlasmaOrdered By: Denilson Gomez on 11-12-2022 Cholesterol [Mass/Vol] 143 mg/dL 140-200 [facility] Comment on above: Chol less than 200 m g/dl low riskChol 201-239 mg/dl borderline riskChol 240 mg/dl and greater high risk Cholesterol in LDL Calc [Mas s/Vol]Ordered By: Denilson Gomez on 11-12-2022 Cholesterol in LDL [Mass/Vol] 93 mg/dL 0-[address] [facility] Comment on above: LDL ATP III CLASSIFI CATIONLDL less than 100 mg/dL OptimalLDL 100-129 mg/dL Near or above optimalLDL 130-159 mg/dL Borderline highLDL 160-189 mg/dL HighLDL greater than 189 mg/dL Very high Cholesterol in VLDL Calc [Ma ss/Vol]Ordered By: Denilson Gomez on 11-12-2022 Cholesterol in VLDL [Mass/Vol] 19 mg/dL [facility] Coagulation Profileon 2022 aPTT Coag (Bld) [Time] 38.0 s High 25.1-36.5 [facility] Comment on above: Result Comment: PERF ORMED BY:[address] [place], [place] [phone] MEDICAL DIRECTORLEVY GILES M.D. Performed By: #### R ENAL, PP, LIPID, PTH, CBC ####[address] [address] [facility] INR Coag (PPP) [Relative time] 1.1 {INR} Normal [facility] Comment on above: Result Comment: INR Therapeutic Range A) Pre- and Peroperative OAT started two weeks before surgery. NOT HIP SURGERY: 1.5 - 2.5 HIP SURGERY: 2 - 3 B) Primary and secondary prevention of venous THROMBOSIS: 2 - 3 C) Active venous thrombosis, pulmonary embolism and prevention of recurrent venous thrombosis: 2 - 3 D) Prevention of arterial thromboembolism including patients with mechanical heart valves: 3 - 4.5 Performed By: #### R ENAL, PP, LIPID, PTH, CBC ####[place] [id number] [facility] PT Coag (PPP) [Time] 12.4 s Normal 9.0-12.9 [facility] Comment on above: Performed By: #### R ENAL, PP, LIPID, PTH, CBC ####[place] [id number] [facility] Complete Blood Count Auto Di ffon 11-12-2022 Basophils (Bld) [#/Vol] 0.1 10*3/uL Normal 0.0-0.[address] [facility] Comment on above: Result Comment: PERF ORMED BY:[address] [place] [address] [place], [place] [phone] MEDICAL DIRECTORLEVY GILES M.D. Performed By: #### R ENAL, PP, LIPID, PTH, CBC ####[place] [id number] [facility] Basophils/100 WBC (Bld) 1.4 % Normal . [facility] Comment on above: Performed By: #### R ENAL, PP, LIPID, PTH, CBC ####[place] [id number] [facility] Eosinophils (Bld) [#/Vol] 0.1 10*3/uL Normal 0.0-0.[address] [facility] Comment on above: Performed By: #### R ENAL, PP, LIPID, PTH, CBC ####[address] Eosinophils/100 WBC (Bld) 1.9 % Normal . [facility] Comment on above: Performed By: #### R ENAL, PP, LIPID, PTH, CBC ####[address] Erythrocyte distribution width (RBC) [Ratio] 12.2 % Normal 12.0-14.[address] [facility] Comment on above: Performed By: #### R ENAL, PP, LIPID, PTH, CBC ####[address] Hematocrit (Bld) [Volume fraction] 25.5 % Low 38.8-50.[address] [facility] Comment on above: Performed By: #### R ENAL, PP, LIPID, PTH, CBC ####[address] Hemoglobin (Bld) [Mass/Vol] 8.7 g/dL Low 13.0-17.[address] [facility] Comment on above: Performed By: #### R ENAL, PP, LIPID, PTH, CBC ####[address] Lymphocytes (Bld) [#/Vol] 1.0 10*3/uL Normal 1.00-4.[address] [facility] Comment on above: Performed By: #### R ENAL, PP, LIPID, PTH, CBC ####[address] Lymphocytes/100 WBC (Bld) 13.3 % Normal . [facility] Comment on above: Performed By: #### R ENAL, PP, LIPID, PTH, CBC ####[address] MCH (RBC) [Entitic mass] 29.8 pg Normal 27.5-35.[address] [facility] Comment on above: Performed By: #### R ENAL, PP, LIPID, PTH, CBC ####[address] MCV (RBC) [Entitic vol] 87.0 fL Normal 83.5-101 [facility] Comment on above: Performed By: #### R ENAL, PP, LIPID, PTH, CBC ####[place] [id number] [facility] Mean Corpuscular HGB Conc 34.3 g/dL Normal 32.5-35.[address] [facility] Comment on above: Performed By: #### R ENAL, PP, LIPID, PTH, CBC ####[address] Monocytes (Bld) [#/Vol] 0.2 10*3/uL Normal 0.0-0.[address] [facility] Comment on above: Performed By: #### R ENAL, PP, LIPID, PTH, CBC ####[address] Monocytes/100 WBC (Bld) 3.2 % Normal . [facility] Comment on above: Performed By: #### R ENAL, PP, LIPID, PTH, CBC ####[address] Neutrophils (Bld) [#/Vol] 6.1 10*3/uL Normal 1.8-7.[address] [facility] Comment on above: Performed By: #### R ENAL, PP, LIPID, PTH, CBC ####[place] [id number] [facility] Neutrophils/100 WBC (Bld) 80.2 % Normal . [facility] Comment on above: Performed By: #### R ENAL, PP, LIPID, PTH, CBC ####[place] [id number] [facility] NRBC% 0.0 /100{WBC} Normal 0-0.[address] [facility] Comment on above: Performed By: #### R ENAL, PP, LIPID, PTH, CBC ####[address] Platelet mean volume (Bld) [Entitic vol] 8.7 fL Normal 6.6-10.[address] [facility] Comment on above: Performed By: #### R ENAL, PP, LIPID, PTH, CBC ####[place] [id number] [facility] Platelets (Bld) [#/Vol] 154 10*3/uL Normal 150-[address] [facility] Comment on above: Performed By: #### R ENAL, PP, LIPID, PTH, CBC ####[address] RBC (Bld) [#/Vol] 2.93 10*6/uL Low 3.90-5.60 [facility] Comment on above: Performed By: #### R ENAL, PP, LIPID, PTH, CBC ####[address] WBC (Bld) [#/Vol] 7.6 10*3/uL Normal 4.1-10.5 [facility] Comment on above: Performed By: #### R ENAL, PP, LIPID, PTH, CBC ####[address] Creatinine [Mass/volume] in Serum or PlasmaOrdered By: Denilson Gomez on 11-12-2022 Creatinine [Mass/Vol] 4.90 mg/dL 0.70-1.30 [facility] ECG 12 lead ECGon 11-12-2022 ECG 12 lead ECG Normal [facility] Eosinophils Auto (Bld) [#/Vo l]Ordered By: Denilson Gomez on 11-12-2022 Eosinophils (Bld) [#/Vol] 0.1 10*3/uL 0.0-0.[address] [facility] Eosinophils/100 WBC Auto (Bl d)Ordered By: Denilson Gomez on 11-12-2022 Eosinophils/100 WBC (Bld) 1.9 % . [facility] Erythrocyte distribution wid th Auto (RBC) [Ratio]Ordered By: Denilson Gomez on 11-12-2022 Erythrocyte distribution width (RBC) [Ratio] 12.2 % 12.0-14.[address] [facility] Glucose [Mass/volume] in Ser um or PlasmaOrdered By: Denilson Gomez on 11-12-2022 Glucose [Mass/Vol] 236 mg/dL 70-100 [facility] Comment on above: ADA recommended refe rence rangeRandom Glucose Reference Range is dependent on time and content of last meal. Glucose of more than 200 mg/dL in a nonstressed, ambulatory subject supports the diagnosis of Diabetes Mellitus. Hematocrit Auto (Bld) [Volum e fraction]Ordered By: Denilson Gomez on 11-12-2022 Hematocrit (Bld) [Volume fraction] 25.5 % 38.8-50.[address] [facility] Hemoglobin [Mass/volume] in BloodOrdered By: Denilson Gomez on 11-12-2022 Hemoglobin (Bld) [Mass/Vol] 8.7 g/dL 13.0-17.[address] [facility] Laboratory - Chemistry and C hemistry - challengeon 11-12-2022 Cholesterol [Mass/Vol] 143\S\143 Normal 140-200 [facility] 250 DO Work Phone: Comment on above: Chol less than 200 m g/dl low risk Chol 201-239 mg/dl borderline risk Chol 240 mg/dl and greater high risk Cholesterol in LDL [Mass/Vol] 93\S\93 Normal 0-100 [facility] 250 DO Work Phone: Comment on above: LDL ATP III CLASSIFI CATION LDL less than 100 mg/dL Optimal LDL 100-129 mg/dL Near or above optimal LDL 130-159 mg/dL Borderline high LDL 160-189 mg/dL High LDL greater than 189 mg/dL Very high Laboratory - Chemistry and C hemistry - challengeOrdered By: Denilson Gomez on 11-12-2022 GFR/1.73 sq M.predicted MDRD (S/P/Bld) [Vol rate/Area] 14.764 mL/min/{1.73_m2} [facility] Laboratory - CoagulationOrde red By: Denilson Gomez on 11-12-2022 PT Coag (PPP) [Time] 12.4 s 9.0-12.9 [facility] Leukocytes [#/volume] correc celena for nucleated erythrocytes in Blood by Automated counOrdered By: Denilson Gomez on 11-12-2022 WBC corrected for nucl RBC Auto (Bld) [#/Vol] 7.6 10*3/uL 4.1-10.[address] [facility] Lipid Panelon 11-12-2022 Cholesterol [Mass/Vol] 143 mg/dL Normal 140-200 [facility] Comment on above: Result Comment: Chol less than 200 mg/dl low risk Chol 201-239 mg/dl borderline risk Chol 240 mg/dl and greater high risk Performed By: #### R ENAL, PP, LIPID, PTH, CBC ####[place] [id number] [facility] Cholesterol in HDL [Mass/Vol] 31 mg/dL Normal 29-[address] [facility] Comment on above: Result Comment: HDL CHOL ATP-III CLASSIFICATION Cardiovascular Risk HDL > or equal to 60 mg/dL LOW HDL < 40 mg/dL HIGH Performed By: #### R ENAL, PP, LIPID, PTH, CBC ####[address] [address] [facility] Cholesterol.total/Rosalind sterol in HDL [Mass ratio] 4.6 {ratio} Normal <5.[address] [facility] Comment on above: Result Comment: PERF ORMED BY:[address] [facility], [place] [id number] MEDICAL DIRECTORLEVY GILES M.D. Performed By: #### R ENAL, PP, LIPID, PTH, CBC ####[address] [address] [facility] LDL Cholesterol,Calculated 93 mg/dL Normal 0-[address] [facility] Comment on above: Result Comment: LDL ATP III CLASSIFICATION LDL less than 100 mg/dL Optimal LDL 100-129 mg/dL Near or above optimal LDL 130-159 mg/dL Borderline high LDL 160-189 mg/dL High LDL greater than 189 mg/dL Very high Performed By: #### R ENAL, PP, LIPID, PTH, CBC ####[facility] [id number] [place] [address] [facility] Triglyceride w/Reflex 97 mg/dL Normal 0-149 [facility] Comment on above: Result Comment: TRIG ATP III CLASSIFICATION TRIG less than 150 mg/dL Normal TRIG 150-199 mg/dL Borderline high TRIG 200-500 mg/dL High TRIG greater than 500 mg/dL Very high Standard traceable to the Center for Disease Conrtrol and Prevention (CDC) test method. Performed By: #### R ENAL, PP, LIPID, PTH, CBC ####[facility] [id number] [place] [address] [facility] VLDL CHOLESTEROL 19 mg/dL Normal [facility] Comment on above: Performed By: #### R ENAL, PP, LIPID, PTH, CBC ####[facility] [id number] [place] [address] [facility] Lymphocytes Auto (Bld) [#/Vo l]Ordered By: Denilson Gomez on 11-12-2022 Lymphocytes (Bld) [#/Vol] 1.0 10*3/uL 1.00-4.[address] [facility] Lymphocytes/100 WBC Auto (Bl d)Ordered By: Denilson Gomez on 11-12-2022 Lymphocytes/100 WBC (Bld) 13.3 % . [facility] MCH Auto (RBC) [Entitic mass ]Ordered By: Denilson Gomez on 11-12-2022 MCH (RBC) [Entitic mass] 29.8 pg 27.5-35.[address] [facility] MCHC Auto (RBC) [Mass/Vol]Or dered By: Denilson Gomez on 11-12-2022 MCHC (RBC) [Mass/Vol] 34.3 g/dL 32.5-35.6 [facility] MCV Auto (RBC) [Entitic vol] Ordered By: Denilson Gomez on 11-12-2022 MCV (RBC) [Entitic vol] 87.0 fL 83.5-101 [facility] Monocytes Auto (Bld) [#/Vol] Ordered By: Denilson Gomez on 11-12-2022 Monocytes (Bld) [#/Vol] 0.2 10*3/uL 0.0-0.[address] [facility] Monocytes/100 WBC Auto (Bld) Ordered By: Denilson Gomez on 11-12-2022 Monocytes/100 WBC (Bld) 3.2 % . [facility] Neutrophils Auto (Bld) [#/Vo l]Ordered By: Denilson Gomez on 11-12-2022 Neutrophils (Bld) [#/Vol] 6.1 10*3/uL 1.8-7.[address] [facility] Neutrophils/100 WBC Auto (Bl d)Ordered By: Denilson Gomez on 11-12-2022 Neutrophils/100 WBC (Bld) 80.2 % . [facility] No Panel InformationOrdered By: Denilson Gomez on 11-12-2022 Pharmacy Creatinine Clearance (Chem N/A [facility] No Panel Informationon 11-12 38.0\S\38.0 above high threshold 25.1-36.5 [facility] 250 DO Work Phone: Comment on above: PERFORMED BY:[facility] [place], [place] [phone] MEDICAL DIRECTORLEVY GILES M.D. 1.1\S\1.1 Normal [facility] [employer] DO Work Phone: Comment on above: INR Therapeutic Rang e A) Pre- and Peroperative OAT started two weeks before surgery. NOT HIP SURGERY: 1.5 - 2.5 HIP SURGERY: 2 - 3 B) Primary and secondary prevention of venous THROMBOSIS: 2 - 3 C) Active venous thrombosis, pulmonary embolism and prevention of recurrent venous thrombosis: 2 - 3 D) Prevention of arterial thromboembolism including patients with mechanical heart valves: 3 - 4.5 12.4\S\12.4 Normal 9.0-12.9 [facility] 250 DO Work Phone: 80.2\S\80.2 Normal . [facility] 250 DO Work Phone: 8.7\S\8.7 below low threshold 13.0-17.0 [facility] marianne 250 DO Work Phone: [phone] 154\S\154 Normal 150-450 [facility]u marianne 250 DO Work Phone: [phone] 12.2\S\12.2 Normal 12.0-14.8 [facility]u marianne 250 DO Work Phone: [phone] 34.3\S\34.3 Normal 32.5-35.6 [facility]u marianne 250 DO Work Phone: [phone] 29.8\S\29.8 Normal 27.5-35.2 [facility] marianne 250 DO Work Phone: [phone] 6.1\S\6.1 Normal 1.8-7.7 [facility] marianne 250 DO Work Phone: [phone] 0.0\S\0.0 Normal 0-0.5 [facility]Prettyu marianne 250 DO Work Phone: [phone] 1.4\S\1.4 Normal . [facility] marianne 250 DO Work Phone: [phone] 1.9\S\1.9 Normal . [facility] marianne 250 DO Work Phone: [phone] 3.2\S\3.2 below low threshold 3.5-5.7 [facility]-Prettyu marianne 250 DO Work Phone: [phone] 13.3\S\13.3 Normal . [facility] marianne 250 DO Work Phone: [phone] 0.1\S\0.1 Normal 0.0-0.45 [facility]Prettyu marianne 250 DO Work Phone: [phone] Comment on above: PERFORMED BY:[facility] [place] [id number] MEDICAL DIRECTORLEVY GILES M.D. 0.2\S\0.2 Normal 0.0-0.8 [facility] marianne 250 DO Work Phone: [phone] 1.0\S\1.0 Normal 1.00-4.8 -[facility]Prettyu marianne 250 DO Work Phone: [phone] 87.0\S\87.0 Normal 83.5-101 [facility]Prettyu marianne 250 DO Work Phone: [phone] 25.5\S\25.5 below low threshold 38.8-50.0 -[facility]Sandu marianne 250 DO Work Phone: [phone] 2.93\S\2.93 below low threshold 3.90-5.60 [facility]Prettyu marianne 250 DO Work Phone: [phone] 7.6\S\7.6 Normal 4.1-10.5 [facility]Pretty[facility] marianne 250 DO Work Phone: [phone] 12.1\S\12.1 Normal 6.0-15.0 [facility]Pretty[facility] marianne 250 DO Work Phone: [phone] 5.3\S\5.3 Normal 3.7-7.2 [facility] marianne 250 DO Work Phone: [phone] 8.2\S\8.2 below low threshold 8.6-10.3 [facility]Pretty[facility] marianne 250 DO Work Phone: [phone] 22.5\S\22.5 Normal 21.0-31.0 [facility]Pretty[facility] marianne 250 DO Work Phone: [phone] 108\S\108 above high threshold 98-107 [facility]Pretty[facility] marianne 250 DO Work Phone: [phone] 5.6\S\5.6 above high threshold 3.5-5.1 [facility]Pretty[facility] marianne 250 DO Work Phone: [phone] 137\S\137 Normal 136-145 [facility]Prettyu marianne 250 DO Work Phone: [phone] 4.90\S\4.90 above high threshold 0.70-1.30 [facility] Justin lopes 250 DO Work Phone: 64\S\64 above high threshold 7-25 [facility] Justin lopes 250 DO Work Phone: [phone]\S\236 above high threshold 70-100 [facility] Justin lopes 250 DO Work Phone: Comment on above: Random Glucose Refer ence Range is dependent on time and content of last meal. Glucose of more than 200 mg/dL in a nonstressed, ambulatory subject supports the diagnosis of Diabetes Mellitus. ADA recommended reference range 4.6\S\4.6 Normal <5.0 [facility] Justin Araiza DO Work Phone: Comment on above: PERFORMED BY:[place] [address] [address] [place] [id number] MEDICAL DIRECTORLEVY GILES M.D. 19\S\19 Normal [facility] Justin lopes NCR DO Work Phone: 97\S\97 Normal 0-149 [facility] Justin Araiza DO Work Phone: Comment on above: TRIG ATP III CLASSIF ICATION TRIG less than 150 mg/dL Normal TRIG 150-199 mg/dL Borderline high TRIG 200-500 mg/dL High TRIG greater than 500 mg/dL Very high Standard traceable to the Center for Disease Conrtrol and Prevention (CDC) test method. 31\S\31 Normal 29-71 [facility] Justin Araiza DO Work Phone: Comment on above: HDL CHOL ATP-III CLA SSIFICATION Cardiovascular Risk HDL > or equal to 60 mg/dL LOW HDL < 40 mg/dL HIGH 268.6\S\268.6 above high threshold 12-88 [facility] Justin Araiza DO Work Phone: Comment on above: PERFORMED BY:[place] [address] [address] [place] [id number] MEDICAL DIRECTORLEVY GILES M.D. Nucleated erythrocytes [Pres ence] in Blood by Automated countOrdered By: Denilson Gomez on 11-12-2022 Nucleated RBC Auto Ql (Bld) 0.0 /100{WBC} 0-0.[address] [facility] Parathyrin.intact [Mass/volu me] in Serum or PlasmaOrdered By: Denilson Gomez on 11-12-2022 Parathyrin.intact [Mass/Vol] 268.6 pg/mL [facility] Parathyroid Hormone Intacton 11-12-2022 Parathyroid Hormone Intact 268.6 pg/mL High [facility] Comment on above: Result Comment: PERF ORMED BY:[facility], [place] [phone] MEDICAL DIRECTORLEVY GILES M.D. Performed By: #### R ENAL, PP, LIPID, PTH, CBC ####[facility] [place] [address] [facility] Phosphate [Mass/volume] in S gretta or PlasmaOrdered By: Denilson Gomez on 11-12-2022 Phosphate [Mass/Vol] 5.3 mg/dL 3.7-7.2 [facility] Platelet mean volume Auto (B ld) [Entitic vol]Ordered By: Denilson Gomez on 11-12-2022 Platelet mean volume (Bld) [Entitic vol] 8.7 fL 6.6-10.[address] [facility] Platelet poor plasma interna tional normalized ratio (INR) by coagulation assay (relatOrdered By: Denilson Gomez on 11-12-2022 INR Coag (PPP) [Relative time] 1.1 {INR} [facility] Comment on above: INR Therapeutic Rang e A) Pre- and Peroperative OAT started two weeks before surgery. NOT HIP SURGERY: 1.5 - 2.5 HIP SURGERY: 2 - 3B) Primary and secondary prevention of venous THROMBOSIS: 2 - 3C) Active venous thrombosis, pulmonary embolismand prevention of recurrent venous thrombosis: 2 - 3D) Prevention of arterial thromboembolismincluding patients with mechanical heart valves: 3 - 4.5 Platelets Auto (Bld) [#/Vol] Ordered By: Denilson Gomez on 11-12-2022 Platelets (Bld) [#/Vol] 154 10*3/uL 150-[address] [facility] Potassium [Moles/volume] in Serum or PlasmaOrdered By: Denilson Gomez on 11-12-2022 Potassium [Moles/Vol] 5.6 mmol/L 3.5-5.1 [facility] RBC Auto (Bld) [#/Vol]Ordere d By: Denilson Gomez on 11-12-2022 RBC (Bld) [#/Vol] 2.93 10*6/uL 3.90-5.60 [facility] Renal Function Panelon 11-12 Albumin [Mass/Vol] 3.2 g/dL Low 3.5-5.7 [facility] Comment on above: Performed By: #### R ENAL, PP, LIPID, PTH, CBC ####[facility] [id number] [place] [address] [facility] Anion gap [Moles/Vol] 12.1 mmol/L Normal 6.0-15.0 [facility] Comment on above: Performed By: #### R ENAL, PP, LIPID, PTH, CBC ####[place] [address] [place] [address] [facility] Calcium [Mass/Vol] 8.2 mg/dL Low 8.6-10.3 [facility] Comment on above: Performed By: #### R ENAL, PP, LIPID, PTH, CBC ####[address] [address] [facility] Chloride [Moles/Vol] 108 mmol/L High 98-107 [facility] Comment on above: Performed By: #### R ENAL, PP, LIPID, PTH, CBC ####[place] [address] [place] [address] [facility] CO2 [Moles/Vol] 22.5 mmol/L Normal 21.0-31.0 [facility] Comment on above: Performed By: #### R ENAL, PP, LIPID, PTH, CBC ####[address] [address] [facility] Creatinine [Mass/Vol] 4.90 mg/dL High 0.70-1.30 [facility] Comment on above: Performed By: #### R ENAL, PP, LIPID, PTH, CBC ####[place] [address] [place] [address] [facility] GFR/1.73 sq M.predicted MDRD (S/P/Bld) [Vol rate/Area] 14.764 mL/min/{1.73_m2} Normal [facility] Comment on above: Performed By: #### R ENAL, PP, LIPID, PTH, CBC ####[place] [address] [place] [address] [facility] Glucose [Mass/Vol] 236 mg/dL High 70-100 [facility] Comment on above: Result Comment: [facility] Glucose Reference Range is dependent on time and content of last meal. Glucose of more than 200 mg/dL in a nonstressed, ambulatory subject supports the diagnosis of Diabetes Mellitus. ADA recommended reference range Performed By: #### R ENAL, PP, LIPID, PTH, CBC ####[place] [address] [place] [address] [facility] Phosphate [Mass/Vol] 5.3 mg/dL Normal 3.7-7.2 [facility] Comment on above: Performed By: #### R ENAL, PP, LIPID, PTH, CBC ####[address] [address] [facility] Potassium [Moles/Vol] 5.6 mmol/L High 3.5-5.1 [facility] Comment on above: Performed By: #### R ENAL, PP, LIPID, PTH, CBC ####[address] [address] [facility] Sodium [Moles/Vol] 137 mmol/L Normal 136-145 [facility] Comment on above: Performed By: #### R ENAL, PP, LIPID, PTH, CBC ####[place] [address] [place] [address] [facility] Urea nitrogen [Mass/Vol] 64 mg/dL High 7-[address] [facility] Comment on above: Performed By: #### R ENAL, PP, LIPID, PTH, CBC ####[facility] [id number] [place] [id number] [facility] Serum or plasma anion gap de terminationOrdered By: Denilson Gomez on 11-12-2022 Anion gap [Moles/Vol] 12.1 mmol/L 6.0-15.0 [facility] Serum or plasma high density lipoprotein (HDL) cholesterol measurementOrdered By: Denilson Gomez on 11-12-2022 Cholesterol in HDL [Mass/Vol] 31 mg/dL 29-[address] [facility] Comment on above: HDL CHOL ATP-III CLA SSIFICATION Cardiovascular RiskHDL > or equal to 60 mg/dL LOWHDL < 40 mg/dL HIGH Serum or plasma total choles terol/high density lipoprotein (HDL) cholesterol mass ratOrdered By: Denilson Gomez on 11-12-2022 Cholesterol.total/Rosalind sterol in HDL [Mass ratio] 4.6 {ratio} <5.[address] [facility] Sodium [Moles/volume] in Ser um or PlasmaOrdered By: Denilson Gomez on 11-12-2022 Sodium [Moles/Vol] 137 mmol/L 136-145 [facility] Triglyceride [Mass/volume] i n Serum or PlasmaOrdered By: Denilson Gomez on 11-12-2022 Triglyceride [Mass/Vol] 97 mg/dL 0-149 [facility] Comment on above: TRIG ATP III CLASSIF ICATIONTRIG less than 150 mg/dL NormalTRIG 150-199 mg/dL Borderline highTRIG 200-500 mg/dL High TRIG greater than 500 mg/dL Very highStandard traceable to the Center for Disease Conrtrol and Prevention (CDC) test method. Urea nitrogen [Mass/volume] in Serum or PlasmaOrdered By: Denilson Gomez on 11-12-2022 Urea nitrogen [Mass/Vol] 64 mg/dL [address] [facility] WBC Auto (Bld) [#/Vol]Ordere d By: Denilson Gomez on 11-12-2022 WBC (Bld) [#/Vol] 7.6 10*3/uL 4.1-10.5 [facility] Office Visit (Cardiology)on 10-18-2022 Follow-up visit Diagnoses/Problems Assessed ASHD (arteriosclerotic heart disease) (414.00) (I25.10) NSTEMI, initial episode of care (410.71) (I21.4) Status post insertion of drug eluting coronary artery stent (V45.82) (Z95.5) History of AL (myocardial infarction) (412) (I25.2) CHF (congestive heart failure) (428.0) (I50.9) Diabetes mellitus (250.00) (E11.9) Essential hypertension, benign (401.1) (I10) Hyperlipidemia (272.4) (E78.5) Chronic kidney disease (CKD) (585.9) (N18.9) Body mass index (BMI) of 22.0 to 22.9 in adult (V85.1) (Z68.22) Current every day smoker (305.1) (F17.200) 1 Pack of cigarettes daily Anemia (285.9) (D64.9) Angina, class II (413.9) (I20.9) Orders ASHD (arteriosclerotic heart disease), CHF (congestive heart failure) Renew: Aspirin 81 MG Oral Tablet Chewable; Take 1 tablet daily ASHD (arteriosclerotic heart disease), Hyperlipidemia, NSTEMI, initial episode of care Renew: Atorvastatin Calcium 80 MG Oral Tablet; TAKE 1 TABLET BY MOUTH EVERY NIGHT FOR 30 DAYS SocHx: Current every day smoker Tobacco Use Screening; Status:Complete; Done: 18Oct2022 You need to stop smoking. Though it is not easy, more than half of all adult smokers have quit. We encourage you to write down all the reasons you should quit smoking and set a quit date for yourself. Ask us how we can help. You may also call 1-578-UPUPNOW for free resources and assistance.; Status:Complete - Retrospective Authorization; Done: 18Oct2022 Tobacco Use Screening; Status:Complete; Done: 18Oct2022 Patient Instructions Please bring all medicines, vitamins, and herbal supplements with you when you come to the office. Prescriptions will not be filled unless you are compliant with your follow up appointments or have a follow up appointment scheduled as per instruction of your physician. Refills should be requested at the time of your visit. Follow up in 4 months Chief Complaint YOEL WERNER is being seen for follow-up of a hospitalization for chest pain. [facility]. 37-year-old gentleman returns following recent hospitalization for unstable angina and hypertension and anxiety. We escalated his isosorbide and hydralazine and is feeling much better. Patient has a prior history of anterior AL in October 2021 with primary revascularization of the proximal through mid LAD. He otherwise has diffuse severe circumflex and RCA disease as reviewed, with preserved LV function upon review of recent echo from October 03 during his most recent hospitalization. He has type 1 diabetes, chronic renal failure stage IV and continues to follow with nephrology. He remains on DAPT and high-dose statin and as mentioned above the escalated dose of the of isosorbide and hydralazine with excellent hemodynamics today We will review his angiogram from October of last year simply to see if he has any targets for revascularization and otherwise follow-up in 3 to 4 months. Surgical History Problems History of Cardiac catheterization with stent placement Denied: History of Complete colonoscopy History of Eye surgery History of Knee surgery History of Vasectomy Current Meds Medication NameInstruction Aspirin 81 MG Oral Tablet ChewableTake 1 tablet daily Atorvastatin Calcium 80 MG Oral TabletTAKE 1 TABLET BY MOUTH EVERY NIGHT FOR 30 DAYS Basaglar KwikPen 100 UNIT/ML Subcutaneous Solution Pen-injectorUSE DIRECTED. Carvedilol 12.5 MG Oral TabletTAKE 1 TABLET TWICE DAILY. Clopidogrel Bisulfate 75 MG Oral TabletTAKE 1 TABLET Daily Famotidine 20 MG Oral TabletTAKE 1 TABLET AT BEDTIME. Furosemide 40 MG Oral TabletTAKE 1 TABLET Daily HumaLOG KwikPen 100 UNIT/ML Subcutaneous Solution Pen-injectorUSE DIRECTED hydrALAZINE HCl - 50 MG Oral TabletTAKE 1 TABLET BY MOUTH THREE TIMES DAILY FOR 30 DAYS Isosorbide Mononitrate ER 60 MG Oral Tablet Extended Release 24 HourTAKE 1 TABLET BY MOUTH DAILY AT 6:00 FOR 30 DAYS Losartan Potassium 25 MG Oral TabletTAKE 1 TABLET TWICE DAILY. Nitroglycerin 0.4 MG Sublingual Tablet SublingualPLACE 1 TABLET UNDER THE TONGUE EVERY 5 MINUTES UP TO 3 DOSES NEEDED FOR CHEST PAIN. Omeprazole 20 MG Oral Capsule Delayed ReleaseTAKE 1 CAPSULE Daily Allergies Medication No Known Drug Allergies Recorded By: Allyson Xiong; 11/24/2021 1:09:16 PM Social History Problems Current every day smoker (305.1) (F17.200) 1 Pack of cigarettes daily Daily caffeine consumption, 2-3 servings a day Illicit drug use (305.90) (F19.90) medical No alcohol use Review of Systems Constitutional: not feeling tired. Cardiovascular: no intermittent leg claudication and as noted in HPI. Respiratory: no cough and no shortness of breath. Gastrointestinal: no change in bowel habits and no blood in stools. Integumentary: no skin rashes. Neurological: no seizures and no frequent falls. All other systems have been reviewed and are negative for complaint. Vitals Vital Signs Recorded: 18Oct2022 10:22AM Heart Rate76, R Radial Systolic1 (more content not included)... Normal Proactive Comfort Tobacco Screening.on 023 Adult depression screening assessment No -[facility] [employer]Yecur[employer] 250 DO Work Phone: Fall risk assessment a) No falls within the last year [facility] [employer]Spine[employer]iery 250 DO Work Phone: Tobacco use status CPHS a) Yes [facility] [employer] 250 DO Work Phone: Tobacco Screening. Yes [facility]-Sandu marianne 250 DO Work Phone: Albumin [Mass/volume] in Ser um or PlasmaOrdered By: Angel Mejía on 10-10-2022 Albumin [Mass/Vol] 2.7 g/dL 3.2-5.5 [facility] CT biopsyOrdered By: Varsha ricardo on 10-10-2022 Transferrin [Mass/Vol] 150 mg/dL 180-380 [facility] Calcium [Mass/volume] in Ser um or PlasmaOrdered By: Angel Mejía on 10-10-2022 Calcium [Mass/Vol] 8.1 mg/dL 8.2-10.2 [facility] Carbon dioxide, total [Moles /volume] in Serum or PlasmaOrdered By: Angel Mejía on 10-10-2022 CO2 [Moles/Vol] 23.9 mmol/L 22.0-30.0 [facility] Creatinine [Mass/volume] in UrineOrdered By: Angel Mejía on 10-10-2022 Creatinine (U) [Mass/Vol] 84.1 mg/dL [facility] Comment on above: No reference range e stablished Creatinine and Glomerular fi ltration rate.predicted panel (S/P/Bld)Ordered By: Angel Mejía on 10-10-2022 Creatinine [Mass/Vol] 4.60 mg/dL 0.64-1.27 [facility] Erythrocyte distribution wid th Auto (RBC) [Ratio]Ordered By: Angel Mejía on 10-10-2022 Erythrocyte distribution width (RBC) [Ratio] 13.1 % 12.0-14.[address] [facility] Estimated glomerular filtrat ion rate (GFR) non- AmericanOrdered By: Angel Mejía on 10-10-2022 GFR/1.73 sq M.predicted among non-blacks MDRD (S/P/Bld) [Vol rate/Area] 14 mL/Min [facility] Ferritinon 10-10-2022 Ferritin [Mass/Vol] 86.0 ng/mL Normal 23.9-336.2 [facility] Comment on above: Order Comment: Reaso n for Exam Proteinuria;CKD (chronic kidney disease) stage 4, GFR 15-29 Performed By: #### R ENAL, [id number], FE and TIBC, MG, ITALO, PTH ####[facility] [id number] [place] [id number] [facility] Ferritin [Mass/volume] in Se rum or PlasmaOrdered By: Angel Mejía on 10-10-2022 Ferritin [Mass/Vol] 86.0 ng/mL 23.9-336.2 [facility] Hematocrit Auto (Bld) [Volum e fraction]Ordered By: Angel Mejía on 10-10-2022 Hematocrit (Bld) [Volume fraction] 24.0 % 38.8-50.[address] [facility] Hemoglobin [Mass/volume] in BloodOrdered By: Angel Mejía on 10-10-2022 Hemoglobin (Bld) [Mass/Vol] 8.3 g/dL 13.0-17.[address] [facility] Hemogram CBC Without Diffon 10-10-2022 Erythrocyte distribution width (RBC) [Ratio] 13.1 % Normal 12.0-14.[address] [facility] Comment on above: Order Comment: Reaso n for Exam Proteinuria;CKD (chronic kidney disease) stage 4, GFR 15-29 Performed By: #### C BCNO ####[place] [id number] [facility] Hematocrit (Bld) [Volume fraction] 24.0 % Low 38.8-50.[address] [facility] Comment on above: Order Comment: Reaso n for Exam Proteinuria;CKD (chronic kidney disease) stage 4, GFR 15-29 Performed By: #### C BCNO ####[place] [id number] [facility] Hemoglobin (Bld) [Mass/Vol] 8.3 g/dL Low 13.0-17.[address] [facility] Comment on above: Order Comment: Reaso n for Exam Proteinuria;CKD (chronic kidney disease) stage 4, GFR 15-29 Performed By: #### C BCNO ####[place] [id number] [facility] MCH (RBC) [Entitic mass] 30.4 pg Normal 27.5-35.[address] [facility] Comment on above: Order Comment: Reaso n for Exam Proteinuria;CKD (chronic kidney disease) stage 4, GFR 15-29 Performed By: #### C BCNO ####[place] [id number] [facility] MCV (RBC) [Entitic vol] 88.2 fL Normal 83.5-101 [facility] Comment on above: Order Comment: Reaso n for Exam Proteinuria;CKD (chronic kidney disease) stage 4, GFR 15-29 Performed By: #### C BCNO ####[place] [id number] [facility] Mean Corpuscular HGB Conc 34.5 g/dL Normal 32.5-35.[address] [facility] Comment on above: Order Comment: Reaso n for Exam Proteinuria;CKD (chronic kidney disease) stage 4, GFR 15-29 Performed By: #### C BCNO ####[place] [id number] [facility] Platelet mean volume (Bld) [Entitic vol] 8.3 fL Normal 6.6-10.[address] [facility] Comment on above: Order Comment: Reaso n for Exam Proteinuria;CKD (chronic kidney disease) stage 4, GFR 15-29 Result Comment: PERF ORMED BY:[address] [place]ZCHICAG[place], [place] [phone] MEDICAL DIRECTORLEVY GILES M.D. Performed By: #### C BCNO ####[address] [address] [facility] Platelets (Bld) [#/Vol] 185 10*3/uL Normal 150-[address] [facility] Comment on above: Order Comment: Reaso n for Exam Proteinuria;CKD (chronic kidney disease) stage 4, GFR 15-29 Performed By: #### C BCNO ####[place] [id number] [facility] RBC (Bld) [#/Vol] 2.72 10*6/uL Low 3.90-5.60 [facility] Comment on above: Order Comment: Reaso n for Exam Proteinuria;CKD (chronic kidney disease) stage 4, GFR 15-29 Performed By: #### C BCNO ####[address] [address] [facility] WBC (Bld) [#/Vol] 5.6 10*3/uL Normal 4.1-10.5 [facility] Comment on above: Order Comment: Reaso n for Exam Proteinuria;CKD (chronic kidney disease) stage 4, GFR 15-29 Performed By: #### C BCNO ####[place] [id number] [facility] Iron [Mass/volume] in Serum or PlasmaOrdered By: Angel Mejía on 10-10-2022 Iron [Mass/Vol] 55 ug/dL 40-[address] [facility] Iron and TIBC Profileon 09-20 % Iron Saturation 26.2 % Normal 20-50 [facility] Comment on above: Order Comment: Reaso n for Exam Proteinuria;CKD (chronic kidney disease) stage 4, GFR 15-29 Performed By: #### R ENAL, [id number], FE and TIBC, MG, ITALO, PTH ####[place] [address] [place] [id number] [facility] Iron [Mass/Vol] 55 ug/dL Normal 40-[address] [facility] Comment on above: Order Comment: Reaso n for Exam Proteinuria;CKD (chronic kidney disease) stage 4, GFR 15-29 Performed By: #### R ENAL, [id number], FE and TIBC, MG, ITALO, PTH ####[place] [address] Total Iron Binding Capacity 210 ug/dL Low 255-[address] [facility] Comment on above: Order Comment: Reaso n for Exam Proteinuria;CKD (chronic kidney disease) stage 4, GFR 15-29 Performed By: #### R ENAL, [id number], FE and TIBC, MG, ITALO, PTH ####[place] [address] [place] [address] [facility] Transferrin [Mass/Vol] 150 mg/dL Low 180-380 [facility] Comment on above: Order Comment: Reaso n for Exam Proteinuria;CKD (chronic kidney disease) stage 4, GFR 15-29 Performed By: #### R ENAL, [id number], FE and TIBC, MG, ITALO, PTH ####[place] [address] Iron binding capacity [Mass/ volume] in Serum or PlasmaOrdered By: Angel Mejía on 10-10-2022 Iron binding capacity [Mass/Vol] 210 ug/dL 255-[address] [facility] Iron saturation [Mass Fracti on] in Serum or PlasmaOrdered By: Angel Joyce on 10-10-2022 Iron saturation [Mass fraction] 26.2 % 20-[address] [facility] Laboratory - Chemistry and C hemistry - challengeOrdered By: Angel Joyce on 10-10-2022 Magnesium [Mass/Vol] 2.1 mg/dL 1.6-2.6 [facility] Leukocytes [#/volume] correc celena for nucleated erythrocytes in Blood by Automated counOrdered By: Angel Mejía on 10-10-2022 WBC corrected for nucl RBC Auto (Bld) [#/Vol] 5.6 10*3/uL 4.1-10.[address] [facility] MCH Auto (RBC) [Entitic mass ]Ordered By: Angel Mejía on 10-10-2022 MCH (RBC) [Entitic mass] 30.4 pg 27.5-35.[address] [facility] MCHC Auto (RBC) [Mass/Vol]Or dered By: Angel Mejía on 10-10-2022 MCHC (RBC) [Mass/Vol] 34.5 g/dL 32.5-35.6 [facility] MCV Auto (RBC) [Entitic vol] Ordered By: Angel Mejía on 10-10-2022 MCV (RBC) [Entitic vol] 88.2 fL 83.5-101 [facility] Magnesiumon 10-10-2022 Magnesium [Mass/Vol] 2.1 mg/dL Normal 1.6-2.6 [facility] Comment on above: Order Comment: Reaso n for Exam Proteinuria;CKD (chronic kidney disease) stage 4, GFR 15-29 Performed By: #### R ENAL, [id number], FE and TIBC, MG, ITALO, PTH ####[facility] [id number] No Panel InformationOrdered By: Angel Mejía on 10-10-2022 25-Hydroxy Vitamin D Total 8.1 ng/mL 30-[address] [facility] Comment on above: VITAMIN D STATUS 25( [place])VITAMIN D RANGE (ng/mL) Deficient <20 Insufficient 20 to <30Sufficient 30 to 100Reference: Vanna MF,Chemo NC, Sergey SIMENTAL, et al. Evaluation,treatment, and prevention of vitamin D deficiency; an Endocrine Society clinical practice guideline. JCEM. 2010; 96(7):1911-30. Estimated GFR () 17 mL/Min [facility] Comment on above: GFR estimated refere nce range: According to KDOQI guidelines, <60 ml/min/1.73m2 is sufficient to diagnose a patient with chronic kidney disease. Pharmacy Creatinine Clearance (Chem N/A [facility] Parathyrin.intact [Mass/volu me] in Serum or PlasmaOrdered By: Agnel Mejía on 10-10-2022 Parathyrin.intact [Mass/Vol] 307.1 pg/mL [facility] Parathyroid Hormone Intacton 10-10-2022 Parathyroid Hormone Intact 307.1 pg/mL High [facility] Comment on above: Order Comment: Reaso n for Exam Proteinuria;CKD (chronic kidney disease) stage 4, GFR 15-29 Result Comment: PERF ORMED BY:[address] [place], [place] [phone] MEDICAL DIRECTORLEVY GILES M.D. Performed By: #### R ENAL, [id number], FE and TIBC, MG, ITALO, PTH ####[facility] [id number] [place] [address] [facility] Phosphate [Mass/volume] in S gretta or PlasmaOrdered By: Angel Mejía on 10-10-2022 Phosphate [Mass/Vol] 6.5 mg/dL 2.5-4.6 [facility] Platelet mean volume Auto (B ld) [Entitic vol]Ordered By: Angel Mejía on 10-10-2022 Platelet mean volume (Bld) [Entitic vol] 8.3 fL 6.6-10.[address] [facility] Platelets Auto (Bld) [#/Vol] Ordered By: Angel Mejía on 10-10-2022 Platelets (Bld) [#/Vol] 185 10*3/uL 150-[address] [facility] Protein Creat Ratio Ur Rando mon 10-10-2022 Creatinine, Urine (Random) 84.1 mg/dL Normal [facility] Comment on above: Order Comment: Reaso n for Exam Proteinuria;CKD (chronic kidney disease) stage 4, GFR 15-29 Result Comment: No r eference range established Performed By: #### P ROCRERAT ####[address] [address] [facility] Protein (U) [Mass/Vol] 400 mg/dL High 0-9 [facility] Comment on above: Order Comment: Reaso n for Exam Proteinuria;CKD (chronic kidney disease) stage 4, GFR 15-29 Performed By: #### P ROCRERAT ####[address] [address] [facility] Urine Protein/Creatinine Ratio 4756 mg/g{Cre} High 0-[address] [facility] Comment on above: Order Comment: Reaso n for Exam Proteinuria;CKD (chronic kidney disease) stage 4, GFR 15-29 Result Comment: PERF ORMED BY:[address]ríguezEsaJULIETTECHICAGO, [place] [id number] MEDICAL DIRECTORLEVY GILES M.D. Performed By: #### P ROCRERAT ####[address] [address] [facility] Protein [Mass/volume] in Uri neOrdered By: Angel Mejía on 10-10-2022 Protein (U) [Mass/Vol] 400 mg/dL 0-9 [facility] RBC Auto (Bld) [#/Vol]Ordere d By: Angel Mejía on 10-10-2022 RBC (Bld) [#/Vol] 2.72 10*6/uL 3.90-5.60 [facility] Renal Function Panelon 10-10 Albumin [Mass/Vol] 2.7 g/dL Low 3.2-5.5 [facility] Comment on above: Order Comment: Reaso n for Exam Proteinuria;CKD (chronic kidney disease) stage 4, GFR 15-29 Performed By: #### R ENAL, [id number], FE and TIBC, MG, ITALO, PTH ####[address] [address] [facility] Anion gap [Moles/Vol] 10.1 mmol/L Normal 6.0-15.0 [facility] Comment on above: Order Comment: Reaso n for Exam Proteinuria;CKD (chronic kidney disease) stage 4, GFR 15-29 Performed By: #### R ENAL, [id number], FE and TIBC, MG, ITALO, PTH ####[address] [address] [facility] Calcium [Mass/Vol] 8.1 mg/dL Low 8.2-10.2 [facility] Comment on above: Order Comment: Reaso n for Exam Proteinuria;CKD (chronic kidney disease) stage 4, GFR 15-29 Performed By: #### R ENAL, [id number], FE and TIBC, MG, ITALO, PTH ####[place] [address] [place] [id number] [facility] Chloride [Moles/Vol] 107 mmol/L Normal 95-114 [facility] Comment on above: Order Comment: Reaso n for Exam Proteinuria;CKD (chronic kidney disease) stage 4, GFR 15-29 Performed By: #### R ENAL, [id number], FE and TIBC, MG, ITALO, PTH ####[place] [address] [place] [id number] [facility] CO2 [Moles/Vol] 23.9 mmol/L Normal 22.0-30.0 [facility] Comment on above: Order Comment: Reaso n for Exam Proteinuria;CKD (chronic kidney disease) stage 4, GFR 15-29 Performed By: #### R ENAL, [id number], FE and TIBC, MG, ITALO, PTH ####[place] [id number] [facility] Creatinine [Mass/Vol] 4.60 mg/dL High 0.64-1.27 [facility] Comment on above: Order Comment: Reaso n for Exam Proteinuria;CKD (chronic kidney disease) stage 4, GFR 15-29 Performed By: #### R ENAL, [id number], FE and TIBC, MG, ITALO, PTH ####[place] [address] [place] [id number] [facility] Estimated GFR ( Julissa [address] [facility] Comment on above: Order Comment: Reaso n for Exam Proteinuria;CKD (chronic kidney disease) stage 4, GFR 15-29 Result Comment: GFR estimated reference range: According to KDOQI guidelines, <60 ml/min/1.73m2 is sufficient to diagnose a patient with chronic kidney disease. Performed By: #### R ENAL, [id number], FE and TIBC, MG, ITALO, PTH ####[place] [address] [place] [address] [facility] Estimated GFR (Non- Am [address] [facility] Comment on above: Order Comment: Reaso n for Exam Proteinuria;CKD (chronic kidney disease) stage 4, GFR 15-29 Performed By: #### R ENAL, [id number], FE and TIBC, MG, ITALO, PTH ####[address] [address] [facility] Glucose [Mass/Vol] 190 mg/dL High 70-100 [facility] Comment on above: Order Comment: Reaso n for Exam Proteinuria;CKD (chronic kidney disease) stage 4, GFR 15-29 Result Comment: [facility] Glucose Reference Range is dependent on time and content of last meal. Glucose of more than 200 mg/dL in a nonstressed, ambulatory subject supports the diagnosis of Diabetes Mellitus. ADA recommended reference range Performed By: #### R ENAL, [id number], FE and TIBC, MG, ITALO, PTH ####[place] [id number] [facility] Phosphate [Mass/Vol] 6.5 mg/dL High 2.5-4.6 [facility] Comment on above: Order Comment: Reaso n for Exam Proteinuria;CKD (chronic kidney disease) stage 4, GFR 15-29 Performed By: #### R ENAL, [id number], FE and TIBC, MG, ITALO, PTH ####[address] [address] [facility] Potassium [Moles/Vol] 5.0 mmol/L Normal 3.5-5.1 [facility] Comment on above: Order Comment: Reaso n for Exam Proteinuria;CKD (chronic kidney disease) stage 4, GFR 15-29 Performed By: #### R ENAL, [id number], FE and TIBC, MG, ITALO, PTH ####[address] [address] [facility] Sodium [Moles/Vol] 136 mmol/L Normal 136-146 [facility] Comment on above: Order Comment: Reaso n for Exam Proteinuria;CKD (chronic kidney disease) stage 4, GFR 15-29 Performed By: #### R ENAL, [id number], FE and TIBC, MG, ITALO, PTH ####[facility] [id number] [place] [id number] [facility] Urea nitrogen [Mass/Vol] 57 mg/dL High 05-[address] [facility] Comment on above: Order Comment: Reaso n for Exam Proteinuria;CKD (chronic kidney disease) stage 4, GFR 15-29 Performed By: #### R ENAL, [id number], FE and TIBC, MG, ITALO, PTH ####[facility] [id number] Serum or plasma anion gap de terminationOrdered By: Angel Mejía on 10-10-2022 Anion gap [Moles/Vol] 10.1 mmol/L 6.0-15.0 [facility] Serum or plasma chloride trina surement (moles/volume)Ordered By: Angel Mejía on 10-10-2022 Chloride [Moles/Vol] 107 mmol/L 95-114 [facility] Serum or plasma glucose farida urement (mass/volume)Ordered By: Angel Mejía on 10-10-2022 Glucose [Mass/Vol] 190 mg/dL 70-100 [facility] Comment on above: ADA recommended refe rence rangeRandom Glucose Reference Range is dependent on time and content of last meal. Glucose of more than 200 mg/dL in a nonstressed, ambulatory subject supports the diagnosis of Diabetes Mellitus. Serum or plasma potassium me asurement (moles/volume)Ordered By: Angel Mejía on 10-10-2022 Potassium [Moles/Vol] 5.0 mmol/L 3.5-5.1 [facility] Serum or plasma sodium measu rement (moles/volume)Ordered By: Angel Mejía on 10-10-2022 Sodium [Moles/Vol] 136 mmol/L 136-146 [facility] Urea nitrogen [Mass/volume] in Serum or PlasmaOrdered By: Angel Mejía on 10-10-2022 Urea nitrogen [Mass/Vol] 57 mg/dL 05-[address] [facility] Urine protein/creatinine rat ioOrdered By: Angel Mejía on 10-10-2022 Protein/Creatinine (U) [Ratio] 4756 mg/g{Cre} 0-[address] [facility] Vitamin D 25 Hydroxy Totalon 10-10-2022 Vitamin D 25 Hydroxy Total 8.1 ng/mL Low 30-[address] [facility] Comment on above: Order Comment: Reaso n for Exam Proteinuria;CKD (chronic kidney disease) stage 4, GFR 15-29 Result Comment: [facility] MIN D STATUS 25([place])VITAMIN D RANGE (ng/mL) Deficient <20 Insufficient 20 to <30 Sufficient 30 to 100 Reference: Vanna MF,Chemo NC, Sergey SIMENTAL, et al. Evaluation,treatment, and prevention of vitamin D deficiency; an Endocrine Society clinical practice guideline. JCEM. 2010; 96(7):1911-30. Performed By: #### R ENAL, [id number], FE and TIBC, MG, ITALO, PTH ####[place] [address] [place] [address] [facility] Activated partial thrombopla stin time (aPTT) in platelet poor plasma by coagulation aOrdered By: Mickey Gr on 10-03-2022 aPTT Coag (PPP) [Time] 37.1 s 25.1-36.5 [facility] B-Type Natriuretic Peptideon 10-03-2022 Natriuretic peptide B (Bld) [Mass/Vol] 381.0 pg/mL High 5-[address] [facility] Comment on above: Result Comment: PERF ORMED BY:[address] [place] [phone] MEDICAL DIRECTORLEVY GILES M.D. Performed By: #### B MP, HS TROP, CBC, CK, CKMB, BNP ####[place] [address] [place] [address] [facility] Basic Metabolic Panelon 09-19 Anion gap [Moles/Vol] 10.1 mmol/L Normal 6.0-15.0 [facility] Comment on above: Performed By: #### C BC, BMP ####[address] [address] [facility] Calcium [Mass/Vol] 8.0 mg/dL Low 8.2-10.2 [facility] Comment on above: Performed By: #### C BC, BMP ####[place] [address] [place] [address] [facility] Chloride [Moles/Vol] 108 mmol/L Normal 95-114 [facility] Comment on above: Performed By: #### C BC, BMP ####[address] [address] [facility] CO2 [Moles/Vol] 22.6 mmol/L Normal 22.0-30.0 [facility] Comment on above: Performed By: #### C BC, BMP ####[place] [address] [place] [id number] [facility] Creatinine [Mass/Vol] 4.17 mg/dL High 0.64-1.27 [facility] Comment on above: Performed By: #### C BC, BMP ####[place] [id number] [facility] Creatinine Clr Calc Pharmacy 25.45 [facility] Comment on above: Result Comment: PERF ORMED BY:[address]ríguez[place]saJULIET[place], [place] [phone] MEDICAL LEONELA GILES M.D. Performed By: #### C BC, BMP ####[address] [address] [facility] Estimated GFR ( Julissa 20 [facility] Comment on above: Result Comment: GFR estimated reference range: According to KDOQI guidelines, <60 ml/min/1.73m2 is sufficient to diagnose a patient with chronic kidney disease. Performed By: #### C BC, BMP ####[place] [id number] [facility] Estimated GFR (Non- Am 16 [facility] Comment on above: Performed By: #### C BC, BMP ####[place] [id number] [facility] Glucose [Mass/Vol] 248 mg/dL High 70-100 [facility] Comment on above: Result Comment: [facility] Glucose Reference Range is dependent on time and content of last meal. Glucose of more than 200 mg/dL in a nonstressed, ambulatory subject supports the diagnosis of Diabetes Mellitus. ADA recommended reference range Performed By: #### C BC, BMP ####[facility] [place] [address] [facility] Potassium [Moles/Vol] 4.7 mmol/L Normal 3.5-5.1 [facility] Comment on above: Performed By: #### C BC, BMP ####[place] [place] [address] [facility] Sodium [Moles/Vol] 136 mmol/L Normal 136-146 [facility] Comment on above: Performed By: #### C BC, BMP ####[place] [place] [address] [facility] Urea nitrogen [Mass/Vol] 55 mg/dL High 9-[address] [facility] Comment on above: Performed By: #### C BC, BMP ####[address] [place] [address] [facility] Anion gap [Moles/Vol] 15.1 mmol/L High 6.0-15.0 [facility] Comment on above: Performed By: #### B MP, HS TROP, CBC, CK, CKMB, BNP ####[place] [address] [place] [address] [facility] Calcium [Mass/Vol] 8.2 mg/dL Normal 8.2-10.2 [facility] Comment on above: Performed By: #### B MP, HS TROP, CBC, CK, CKMB, BNP ####[place] [place] [address] [place] Chloride [Moles/Vol] 103 mmol/L Normal 95-114 [facility] Comment on above: Performed By: #### B MP, HS TROP, CBC, CK, CKMB, BNP ####[place] [place] [address] [facility] CO2 [Moles/Vol] 21.3 mmol/L Low 22.0-30.0 [facility] Comment on above: Performed By: #### B MP, HS TROP, CBC, CK, CKMB, BNP ####[place] [address] Creatinine [Mass/Vol] 4.16 mg/dL High 0.64-1.27 [facility] Comment on above: Performed By: #### B MP, HS TROP, CBC, CK, CKMB, BNP ####[address] Creatinine Clr Calc Pharmacy 25.83 [facility] Comment on above: Result Comment: PERF ORMED BY:[address] [place], [place] [phone] MEDICAL DIRECTORLEVY GILES M.D. Performed By: #### B MP, HS TROP, CBC, CK, CKMB, BNP ####[address] Estimated GFR ( Julissa 20 [facility] Comment on above: Result Comment: GFR estimated reference range: According to KDOQI guidelines, <60 ml/min/1.73m2 is sufficient to diagnose a patient with chronic kidney disease. Performed By: #### B MP, HS TROP, CBC, CK, CKMB, BNP ####[address] Estimated GFR (Non- Am 16 [facility] Comment on above: Performed By: #### B MP, HS TROP, CBC, CK, CKMB, BNP ####[place] [id number] [facility] Glucose [Mass/Vol] 223 mg/dL High 70-100 [facility] Comment on above: Result Comment: [facility] Glucose Reference Range is dependent on time and content of last meal. Glucose of more than 200 mg/dL in a nonstressed, ambulatory subject supports the diagnosis of Diabetes Mellitus. ADA recommended reference range Performed By: #### B MP, HS TROP, CBC, CK, CKMB, BNP ####[address] [address] [facility] Potassium [Moles/Vol] 4.4 mmol/L Normal 3.5-5.1 [facility] Comment on above: Performed By: #### B MP, HS TROP, CBC, CK, CKMB, BNP ####[address] [place] [address] [facility] Sodium [Moles/Vol] 135 mmol/L Low 136-146 [facility] [facility] Comment on above: Performed By: #### B MP, HS TROP, CBC, CK, CKMB, BNP ####[place] [id number] [place] [id number] [facility] Urea nitrogen [Mass/Vol] 54 mg/dL High 9-[address] [facility] Comment on above: Performed By: #### B MP, HS TROP, CBC, CK, CKMB, BNP ####[place] [id number] [facility] Basophils Auto (Bld) [#/Vol] Ordered By: Evert Renae on 10-03-2022 Basophils (Bld) [#/Vol] 0.1 10*3/uL 0.0-0.[address] [facility] Basophils/100 WBC Auto (Bld) Ordered By: Evert Renae on 10-03-2022 Basophils/100 WBC (Bld) 1.0 % . [facility] Complete Blood Count Auto Di ffon 10-03-2022 Basophils (Bld) [#/Vol] 0.1 10*3/uL Normal 0.0-0.[address] [facility] Comment on above: Result Comment: PERF ORMED BY:[address] [place]odríguezEsa[place]IET[place], [place] [phone] MEDICAL DIRECTORLEVY GILES M.D. Performed By: #### C BC, BMP ####[place] [id number] [facility] Basophils/100 WBC (Bld) 1.0 % Normal . [facility] Comment on above: Performed By: #### C BC, BMP ####[place] [id number] [facility] Eosinophils (Bld) [#/Vol] 0.2 10*3/uL Normal 0.0-0.[address] [facility] Comment on above: Performed By: #### C NEREIDA, BMP ####[address] Eosinophils/100 WBC (Bld) 2.7 % Normal . [facility] Comment on above: Performed By: #### C NEREIDA, BMP ####[address] Erythrocyte distribution width (RBC) [Ratio] 13.3 % Normal 12.0-14.[address] [facility] Comment on above: Performed By: #### C NEREIDA, BMP ####[address] Hematocrit (Bld) [Volume fraction] 24.9 % Low 38.8-50.[address] [facility] Comment on above: Performed By: #### C NEREIDA, BMP ####[address] Hemoglobin (Bld) [Mass/Vol] 8.5 g/dL Low 13.0-17.[address] [facility] Comment on above: Performed By: #### C NEREIDA, BMP ####[address] Lymphocytes (Bld) [#/Vol] 1.7 10*3/uL Normal 1.00-4.[address] [facility] Comment on above: Performed By: #### C NEREIDA, BMP ####[address] Lymphocytes/100 WBC (Bld) 26.3 % Normal . [facility] Comment on above: Performed By: #### C NEREIDA, BMP ####[address] MCH (RBC) [Entitic mass] 29.8 pg Normal 27.5-35.[address] [facility] Comment on above: Performed By: #### C NEREIDA, BMP ####[address] MCV (RBC) [Entitic vol] 86.9 fL Normal 83.5-101 [facility] Comment on above: Performed By: #### C NEREIDA, BMP ####[address] Mean Corpuscular HGB Conc 34.3 g/dL Normal 32.5-35.[address] [facility] Comment on above: Performed By: #### C NEREIDA, BMP ####[address] Monocytes (Bld) [#/Vol] 0.3 10*3/uL Normal 0.0-0.[address] [facility] Comment on above: Performed By: #### C NEREIDA, BMP ####[address] Monocytes/100 WBC (Bld) 5.4 % Normal . [facility] Comment on above: Performed By: #### C NEREIDA, BMP ####[address] Neutrophils (Bld) [#/Vol] 4.1 10*3/uL Normal 1.8-7.[address] [facility] Comment on above: Performed By: #### C NEREIDA, BMP ####[address] Neutrophils/100 WBC (Bld) 64.6 % Normal . [facility] Comment on above: Performed By: #### C NEREIDA, BMP ####[address] NRBC% 0.2 /100{WBC} Normal 0-0.[address] [facility] Comment on above: Performed By: #### C NEREIDA, BMP ####[address] Platelet mean volume (Bld) [Entitic vol] 8.2 fL Normal 6.6-10.[address] [facility] Comment on above: Performed By: #### C NEREIDA, BMP ####[place] [id number] [facility] Platelets (Bld) [#/Vol] 176 10*3/uL Normal 150-[address] [facility] Comment on above: Performed By: #### C NEREIDA, BMP ####[address] RBC (Bld) [#/Vol] 2.86 10*6/uL Low 3.90-5.60 [facility] Comment on above: Performed By: #### C BC, BMP ####[address] WBC (Bld) [#/Vol] 6.4 10*3/uL Normal 4.1-10.5 [facility] Comment on above: Performed By: #### C NEREIDA, BMP ####[address] Basophils (Bld) [#/Vol] 0.1 10*3/uL Normal 0.0-0.[address] [facility] Comment on above: Result Comment: PERF ORMED BY:[address] [place], [place] [phone] MEDICAL DIRECTORLEVY GILES M.D. Performed By: #### B MP, HS TROP, CBC, CK, CKMB, BNP ####[address] Basophils/100 WBC (Bld) 1.7 % Normal . [facility] Comment on above: Performed By: #### B MP, HS TROP, CBC, CK, CKMB, BNP ####[address] Eosinophils (Bld) [#/Vol] 0.2 10*3/uL Normal 0.0-0.[address] [facility] Comment on above: Performed By: #### B MP, HS TROP, CBC, CK, CKMB, BNP ####[address] Eosinophils/100 WBC (Bld) 2.7 % Normal . [facility] Comment on above: Performed By: #### B MP, HS TROP, CBC, CK, CKMB, BNP ####[address] Erythrocyte distribution width (RBC) [Ratio] 13.2 % Normal 12.0-14.[address] [facility] Comment on above: Performed By: #### B MP, HS TROP, CBC, CK, CKMB, BNP ####[address] Hematocrit (Bld) [Volume fraction] 23.8 % Low 38.8-50.[address] [facility] Comment on above: Performed By: #### B MP, HS TROP, CBC, CK, CKMB, BNP ####[address] Hemoglobin (Bld) [Mass/Vol] 8.3 g/dL Low 13.0-17.[address] [facility] Comment on above: Performed By: #### B MP, HS TROP, CBC, CK, CKMB, BNP ####[address] Lymphocytes (Bld) [#/Vol] 1.4 10*3/uL Normal 1.00-4.[address] [facility] Comment on above: Performed By: #### B MP, HS TROP, CBC, CK, CKMB, BNP ####[address] Lymphocytes/100 WBC (Bld) 19.9 % Normal . [facility] Comment on above: Performed By: #### B MP, HS TROP, CBC, CK, CKMB, BNP ####[address] MCH (RBC) [Entitic mass] 30.4 pg Normal 27.5-35.[address] [facility] Comment on above: Performed By: #### B MP, HS TROP, CBC, CK, CKMB, BNP ####[address] MCV (RBC) [Entitic vol] 87.1 fL Normal 83.5-101 [facility] Comment on above: Performed By: #### B MP, HS TROP, CBC, CK, CKMB, BNP ####[address] Mean Corpuscular HGB Conc 34.9 g/dL Normal 32.5-35.[address] [facility] Comment on above: Performed By: #### B MP, HS TROP, CBC, CK, CKMB, BNP ####[address] Monocytes (Bld) [#/Vol] 0.4 10*3/uL Normal 0.0-0.[address] [facility] Comment on above: Performed By: #### B MP, HS TROP, CBC, CK, CKMB, BNP ####[address] Monocytes/100 WBC (Bld) 14.39 % Normal 0.00-20.00 [facility] Comment on above: Performed By: #### B MP, HS TROP, CBC, CK, CKMB, BNP ####[address] Monocytes/100 WBC (Bld) 5.5 % Normal . [facility] Comment on above: Performed By: #### B MP, HS TROP, CBC, CK, CKMB, BNP ####[address] Neutrophils (Bld) [#/Vol] 5.1 10*3/uL Normal 1.8-7.[address] [facility] Comment on above: Performed By: #### B MP, HS TROP, CBC, CK, CKMB, BNP ####[address] Neutrophils/100 WBC (Bld) 70.2 % Normal . [facility] Comment on above: Performed By: #### B MP, HS TROP, CBC, CK, CKMB, BNP ####[address] NRBC% 0.0 /100{WBC} Normal 0-0.[address] [facility] Comment on above: Performed By: #### B MP, HS TROP, CBC, CK, CKMB, BNP ####[address] Platelet mean volume (Bld) [Entitic vol] 8.2 fL Normal 6.6-10.[address] [facility] Comment on above: Performed By: #### B MP, HS TROP, CBC, CK, CKMB, BNP ####[address] Platelets (Bld) [#/Vol] 185 10*3/uL Normal 150-[address] [facility] Comment on above: Performed By: #### B MP, HS TROP, CBC, CK, CKMB, BNP ####[address] RBC (Bld) [#/Vol] 2.74 10*6/uL Low 3.90-5.60 [facility] Comment on above: Performed By: #### B MP, HS TROP, CBC, CK, CKMB, BNP ####[address] WBC (Bld) [#/Vol] 7.2 10*3/uL Normal 4.1-10.5 [facility] Comment on above: Performed By: #### B MP, HS TROP, CBC, CK, CKMB, BNP ####[address] Creatine Kinaseon 10-03-2022 CK [Catalytic activity/Vol] 213 U/L Normal 22-[address] [facility] Comment on above: Performed By: #### H S TROP, CK, CKMB ####[address] CK [Catalytic activity/Vol] 243 U/L Normal 22-[address] [facility] Comment on above: Performed By: #### C K, CKMB, HS TROP ####[address] CK [Catalytic activity/Vol] 315 U/L High [facility] Comment on above: Performed By: #### B MP, HS TROP, CBC, CK, CKMB, BNP ####[address] Creatine kinase [Enzymatic a ctivity/volume] in Serum or PlasmaOrdered By: Evert Renae on 10-03-2022 CK [Catalytic activity/Vol] 213 U/L [facility] CK [Catalytic activity/Vol] 243 U/L [facility] Creatine kinase.MB [Mass/vol ume] in Serum or PlasmaOrdered By: Evert Renae on 10-03-2022 CK.MB [Mass/Vol] 5.6 ng/mL 0.6-6.3 [facility] CK.MB [Mass/Vol] 5.9 ng/mL 0.6-6.3 [facility] Creatinine Kinase MBon 10-03 CK.MB [Mass/Vol] 5.6 ng/mL Normal 0.6-6.3 [facility] Comment on above: Performed By: #### H S TROP, CK, CKMB ####[address] CKMB Relative Index 2.6 % High 0.00-2.50 [facility] Comment on above: Performed By: #### H S TROP, CK, CKMB ####[address] CK.MB [Mass/Vol] 5.9 ng/mL Normal 0.6-6.3 [facility] Comment on above: Performed By: #### C K, CKMB, HS TROP ####[address] CKMB Relative Index 2.4 % Normal 0.00-2.50 [facility] Comment on above: Performed By: #### C K, CKMB, HS TROP ####[address] CK.MB [Mass/Vol] 8.2 ng/mL High 0.6-6.3 [facility] Comment on above: Performed By: #### B MP, HS TROP, CBC, CK, CKMB, BNP ####[facility] [id number] CKMB Relative Index 2.6 % High 0.00-2.50 [facility] Comment on above: Performed By: #### B MP, HS TROP, CBC, CK, CKMB, BNP ####[facility] [id number] Creatinine and Glomerular fi ltration rate.predicted panel (S/P/Bld)Ordered By: Evert Renae on 10-03-2022 Creatinine [Mass/Vol] 4.17 mg/dL 0.64-1.27 [facility] ECG 12 lead ECGon 10-03-2022 ECG 12 lead ECG Normal [facility] ECG 12 lead ECG Normal [facility] ECH echo transthoracicon ECH echo transthoracic Normal [facility] Eosinophils Auto (Bld) [#/Vo l]Ordered By: Evert Renae on 10-03-2022 Eosinophils (Bld) [#/Vol] 0.2 10*3/uL 0.0-0.[address] [facility] Eosinophils/100 WBC Auto (Bl d)Ordered By: Evert Renae on 10-03-2022 Eosinophils/100 WBC (Bld) 2.7 % . [facility] Erythrocyte distribution wid th Auto (RBC) [Ratio]Ordered By: Evert Renae on 10-03-2022 Erythrocyte distribution width (RBC) [Ratio] 13.3 % 12.0-14.[address] [facility] Estimated glomerular filtrat ion rate (GFR) non- AmericanOrdered By: Evert Renae on 10-03-2022 GFR/1.73 sq M.predicted among non-blacks MDRD (S/P/Bld) [Vol rate/Area] 16 mL/Min [facility] Glucose Glucometer (BldC) [M ass/Vol]Ordered By: Ross Catherine on 10-03-2022 Glucose [Mass/Vol] 214 mg/dL [facility] Comment on above: Random Glucose Refer ence Range is dependent on time and content of last meal. Glucose of more than 200 mg/dL in a nonstressed, ambulatory subject supports the diagnosis of Diabetes Mellitus. Glucose Poct Glucometerson 0 10-03-2022 Commemt1 Glu2: Cleaned Meter Normal [facility] Comment on above: Result Comment: PERF ORMED BY:[facility] [place], [place] [phone] MEDICAL DIRECTORLEVY GILES M.D. Performed By: #### G LULS ####Point of Care testing, Glucose [Mass/Vol] 214 mg/dL Normal [facility] Comment on above: Result Comment: [place] om Glucose Reference Range is dependent on time and content of last meal. Glucose of more than 200 mg/dL in a nonstressed, ambulatory subject supports the diagnosis of Diabetes Mellitus. Performed By: #### G LULS ####Point of Care testing, Glucose [Mass/Vol] 307 mg/dL Normal [facility] Comment on above: Result Comment: [place] [facility] Glucose Reference Range is dependent on time and content of last meal. Glucose of more than 200 mg/dL in a nonstressed, ambulatory subject supports the diagnosis of Diabetes Mellitus.PERFORMED BY:[place] [address] [address] [place], [place] [phone] MEDICAL DIRECTORLEVY GILES M.D. Performed By: #### G LULS ####Point of Care testing, Hematocrit Auto (Bld) [Volum e fraction]Ordered By: Evert Renae on 10-03-2022 Hematocrit (Bld) [Volume fraction] 24.9 % 38.8-50.[address] [facility] Hemoglobin [Mass/volume] in BloodOrdered By: Evert Renae on 10-03-2022 Hemoglobin (Bld) [Mass/Vol] 8.5 g/dL 13.0-17.[address] [facility] Leukocytes [#/volume] correc celena for nucleated erythrocytes in Blood by Automated counOrdered By: Evert Renae on 10-03-2022 WBC corrected for nucl RBC Auto (Bld) [#/Vol] 6.4 10*3/uL 4.1-10.[address] [facility] Lymphocytes Auto (Bld) [#/Vo l]Ordered By: Evert Renae on 10-03-2022 Lymphocytes (Bld) [#/Vol] 1.7 10*3/uL 1.00-4.[address] [facility] Lymphocytes/100 WBC Auto (Bl d)Ordered By: Evert Renae on 10-03-2022 Lymphocytes/100 WBC (Bld) 26.3 % . [facility] MCH Auto (RBC) [Entitic mass ]Ordered By: Evert Renae on 10-03-2022 MCH (RBC) [Entitic mass] 29.8 pg 27.5-35.[address] [facility] MCHC Auto (RBC) [Mass/Vol]Or dered By: Evert Renae on 10-03-2022 MCHC (RBC) [Mass/Vol] 34.3 g/dL 32.5-35.6 [facility] MCV Auto (RBC) [Entitic vol] Ordered By: Evert Renae on 10-03-2022 MCV (RBC) [Entitic vol] 86.9 fL 83.5-101 [facility] Monocytes Auto (Bld) [#/Vol] Ordered By: Evert Renae on 10-03-2022 Monocytes (Bld) [#/Vol] 0.3 10*3/uL 0.0-0.[address] [facility] Monocytes/100 WBC Auto (Bld) Ordered By: Evert Renae on 10-03-2022 Monocytes/100 WBC (Bld) 5.4 % . [facility] Neutrophils Auto (Bld) [#/Vo l]Ordered By: Evert Renae on 10-03-2022 Neutrophils (Bld) [#/Vol] 4.1 10*3/uL 1.8-7.[address] [facility] Neutrophils/100 WBC Auto (Bl d)Ordered By: Evert Renae on 10-03-2022 Neutrophils/100 WBC (Bld) 64.6 % . [facility] No Panel InformationOrdered By: Ross Catherine on 10-03-2022 Bedside Glucose Comment Glu2: cleaned meter [facility] No Panel InformationOrdered By: Evert Renae on 10-03-2022 Estimated GFR () 20 mL/Min [facility] Comment on above: GFR estimated refere nce range: According to KDOQI guidelines, <60 ml/min/1.73m2 is sufficient to diagnose a patient with chronic kidney disease. Pharmacy Creatinine Clearance (Chem 25.[address] [facility] Nucleated erythrocytes [Pres ence] in Blood by Automated countOrdered By: Evert Renae on 10-03-2022 Nucleated RBC Auto Ql (Bld) 0.2 /100{WBC} 0-0.[address] [facility] Partial Thromboplastin Timeo n 10-03-2022 aPTT Coag (Bld) [Time] 37.1 s High 25.1-36.5 [facility] Comment on above: Result Comment: PERF ORMED BY:[facility] [place] [address] [place], [place] [phone] MEDICAL DIRECTORLEVY GILES M.D. Performed By: #### P TT ####[facility] [place] [id number] [facility] Platelet mean volume Auto (B ld) [Entitic vol]Ordered By: Evert Renae on 10-03-2022 Platelet mean volume (Bld) [Entitic vol] 8.2 fL 6.6-10.[address] [facility] Platelets Auto (Bld) [#/Vol] Ordered By: Evert Renae on 10-03-2022 Platelets (Bld) [#/Vol] 176 10*3/uL 150-[address] [facility] RBC Auto (Bld) [#/Vol]Ordere d By: Evert Renae on 10-03-2022 RBC (Bld) [#/Vol] 2.86 10*6/uL 3.90-5.60 [facility] Serum or plasma anion gap de terminationOrdered By: Evert Renae on 10-03-2022 Anion gap [Moles/Vol] 10.1 mmol/L 6.0-15.0 [facility] Serum or plasma calcium farida urement (mass/volume)Ordered By: Evert Renae on 10-03-2022 Calcium [Mass/Vol] 8.0 mg/dL 8.2-10.2 [facility] Serum or plasma chloride trina surement (moles/volume)Ordered By: Evert Renae on 10-03-2022 Chloride [Moles/Vol] 108 mmol/L 95-114 [facility] Serum or plasma creatine kin ase MB (CKMB)/total creatine kinase (CK) ratio by calculaOrdered By: Evert Renae on 10-03-2022 CK.MB Calc [Catalytic fraction] 2.6 % 0.00-2.[address] [facility] CK.MB Calc [Catalytic fraction] 2.4 % 0.00-2.[address] [facility] Serum or plasma glucose farida urement (mass/volume)Ordered By: vEert Renae on 10-03-2022 Glucose [Mass/Vol] 248 mg/dL 70-100 [facility] Comment on above: ADA recommended refe rence rangeRandom Glucose Reference Range is dependent on time and content of last meal. Glucose of more than 200 mg/dL in a nonstressed, ambulatory subject supports the diagnosis of Diabetes Mellitus. Serum or plasma potassium me asurement (moles/volume)Ordered By: Evert Renae on 10-03-2022 Potassium [Moles/Vol] 4.7 mmol/L 3.5-5.1 [facility] Serum or plasma sodium measu rement (moles/volume)Ordered By: Evert Renae on 10-03-2022 Sodium [Moles/Vol] 136 mmol/L 136-146 [facility] Serum or plasma total carbon dioxide measurement (moles/volume)Ordered By: Evert Renae on 10-03-2022 CO2 [Moles/Vol] 22.6 mmol/L 22.0-30.0 [facility] Serum or plasma urea nitroge n measurement (mass/volume)Ordered By: Evert Renae on 10-03-2022 Urea nitrogen [Mass/Vol] 55 mg/dL 9-[address] [facility] Troponin I High Sensitivityo n 10-03-2022 Troponin I High Sensitivity 18 pg/mL Normal 0-[address] [facility] Comment on above: Result Comment: PERF ORMED BY:[address] HOFFEsaJULIETTE, [place] [phone] MEDICAL DIRECTORLEVY GILES M.D. Performed By: #### H S TROP, CK, CKMB ####[address] [address] [facility] Troponin I High Sensitivity 18 pg/mL Normal 0-[address] [facility] Comment on above: Result Comment: PERF ORMED BY:[address] HOFFEsaVERSAILLES, [place] [phone] MEDICAL DIRECTORLEVY GILES M.D. Performed By: #### C K, CKMB, HS TROP ####[address] [address] [facility] Troponin I High Sensitivity 18 pg/mL Normal 0-[address] [facility] Comment on above: Result Comment: PERF ORMED BY:[address] HOFFEsaVERSAILLES, [place] [phone] MEDICAL DIRECTORLEVY GILES M.D. Performed By: #### B MP, HS TROP, CBC, CK, CKMB, BNP ####[place] [id number] [facility] Troponin I.cardiac [Mass/vol ume] in Serum or Plasma by High sensitivity methodOrdered By: Evert Renae on 10-03-2022 Troponin I.cardiac High sensitivity method [Mass/Vol] 18 pg/mL 0-[address] [facility] Troponin I.cardiac High sensitivity method [Mass/Vol] 18 pg/mL 0-[address] [facility] WBC Auto (Bld) [#/Vol]Ordere d By: Evert Renae on 10-03-2022 WBC (Bld) [#/Vol] 6.4 10*3/uL 4.1-10.5 [facility] XR chest 1V portableon 10-03 XR chest 1V portable Normal [facility] Basophils Auto (Bld) [#/Vol] Ordered By: Mickey Gr on 10-02-2022 Basophils (Bld) [#/Vol] 0.1 10*3/uL 0.0-0.[address] [facility] Basophils/100 WBC Auto (Bld) Ordered By: Mickey Gr on 10-02-2022 Basophils/100 WBC (Bld) 1.7 % . [facility] Creatinine and Glomerular fi ltration rate.predicted panel (S/P/Bld)Ordered By: Mickey Gr on 10-02-2022 Creatinine [Mass/Vol] 4.16 mg/dL 0.64-1.27 [facility] Eosinophils Auto (Bld) [#/Vo l]Ordered By: Mickey Gr on 10-02-2022 Eosinophils (Bld) [#/Vol] 0.2 10*3/uL 0.0-0.[address] [facility] Eosinophils/100 WBC Auto (Bl d)Ordered By: Mickey Gr on 10-02-2022 Eosinophils/100 WBC (Bld) 2.7 % . [facility] Erythrocyte distribution wid th Auto (RBC) [Ratio]Ordered By: Mickey Gr on 10-02-2022 Erythrocyte distribution width (RBC) [Ratio] 13.2 % 12.0-14.[address] [facility] Estimated glomerular filtrat ion rate (GFR) non- AmericanOrdered By: Mickey Gr on 10-02-2022 GFR/1.73 sq M.predicted among non-blacks MDRD (S/P/Bld) [Vol rate/Area] 16 mL/Min [facility] Hematocrit Auto (Bld) [Volum e fraction]Ordered By: Mickey Gr on 10-02-2022 Hematocrit (Bld) [Volume fraction] 23.8 % 38.8-50.[address] [facility] Hemoglobin [Mass/volume] in BloodOrdered By: Mickey Gr on 10-02-2022 Hemoglobin (Bld) [Mass/Vol] 8.3 g/dL 13.0-17.[address] [facility] Laboratory - Chemistry and C hemistry - challengeOrdered By: Mickey Gr on 10-02-2022 Natriuretic peptide B (Bld) [Mass/Vol] 381.0 pg/mL 5-[address] [facility] Laboratory - CoagulationOrde red By: Mickey Gr on 10-02-2022 PT Coag (PPP) [Time] 12.1 s 9.0-12.9 [facility] Leukocytes [#/volume] correc celena for nucleated erythrocytes in Blood by Automated counOrdered By: Mickey Gr on 10-02-2022 WBC corrected for nucl RBC Auto (Bld) [#/Vol] 7.2 10*3/uL 4.1-10.[address] [facility] Lymphocytes Auto (Bld) [#/Vo l]Ordered By: Mickey Gr on 10-02-2022 Lymphocytes (Bld) [#/Vol] 1.4 10*3/uL 1.00-4.[address] [facility] Lymphocytes/100 WBC Auto (Bl d)Ordered By: Mickey Gr on 10-02-2022 Lymphocytes/100 WBC (Bld) 19.9 % . [facility] MCH Auto (RBC) [Entitic mass ]Ordered By: Mickey Gr on 10-02-2022 MCH (RBC) [Entitic mass] 30.4 pg 27.5-35.[address] [facility] MCHC Auto (RBC) [Mass/Vol]Or dered By: Mickey Gr on 10-02-2022 MCHC (RBC) [Mass/Vol] 34.9 g/dL 32.5-35.6 [facility] MCV Auto (RBC) [Entitic vol] Ordered By: Mikcey Gr on 10-02-2022 MCV (RBC) [Entitic vol] 87.1 fL 83.5-101 [facility] Monocyte distribution width [Entitic volume] in Blood by AutomatedOrdered By: Mickey Gr on 10-02-2022 Monocyte distribution width Auto (Bld) [Entitic vol] 14.39 % 0.00-20.[address] [facility] Monocytes Auto (Bld) [#/Vol] Ordered By: Mickey Gr on 10-02-2022 Monocytes (Bld) [#/Vol] 0.4 10*3/uL 0.0-0.[address] [facility] Monocytes/100 WBC Auto (Bld) Ordered By: Mickey Gr on 10-02-2022 Monocytes/100 WBC (Bld) 5.5 % . [facility] Neutrophils Auto (Bld) [#/Vo l]Ordered By: Mickey Gr on 10-02-2022 Neutrophils (Bld) [#/Vol] 5.1 10*3/uL 1.8-7.[address] [facility] Neutrophils/100 WBC Auto (Bl d)Ordered By: Mickey Gr on 10-02-2022 Neutrophils/100 WBC (Bld) 70.2 % . [facility] No Panel InformationOrdered By: Mickey Gr on 10-02-2022 Estimated GFR () 20 mL/Min [facility] Comment on above: GFR estimated refere nce range: According to KDOQI guidelines, <60 ml/min/1.73m2 is sufficient to diagnose a patient with chronic kidney disease. Pharmacy Creatinine Clearance (Chem 25.[address] [facility] Nucleated erythrocytes [Pres ence] in Blood by Automated countOrdered By: Mickey Gr on 10-02-2022 Nucleated RBC Auto Ql (Bld) 0.0 /100{WBC} 0-0.[address] [facility] Platelet mean volume Auto (B ld) [Entitic vol]Ordered By: Mickey Gr on 10-02-2022 Platelet mean volume (Bld) [Entitic vol] 8.2 fL 6.6-10.[address] [facility] Platelet poor plasma interna tional normalized ratio (INR) by coagulation assay (relatOrdered By: Mickey Gr on 10-02-2022 INR Coag (PPP) [Relative time] 1.0 {INR} [facility] Comment on above: INR Therapeutic Rang e A) Pre- and Peroperative OAT started two weeks before surgery. NOT HIP SURGERY: 1.5 - 2.5 HIP SURGERY: 2 - 3B) Primary and secondary prevention of venous THROMBOSIS: 2 - 3C) Active venous thrombosis, pulmonary embolismand prevention of recurrent venous thrombosis: 2 - 3D) Prevention of arterial thromboembolismincluding patients with mechanical heart valves: 3 - 4.5 Platelets Auto (Bld) [#/Vol] Ordered By: Mickey Gr on 10-02-2022 Platelets (Bld) [#/Vol] 185 10*3/uL 150-[address] [facility] RBC Auto (Bld) [#/Vol]Ordere d By: Mickey Gr on 02-14-2023 RBC (Bld) [#/Vol] 2.74 10*6/uL 3.90-5.60 [facility] Serum or plasma anion gap de terminationOrdered By: Mickey Gr on 10-02-2022 Anion gap [Moles/Vol] 15.1 mmol/L 6.0-15.0 [facility] Serum or plasma calcium farida urement (mass/volume)Ordered By: Mickey Gr on 10-02-2022 Calcium [Mass/Vol] 8.2 mg/dL 8.2-10.2 [facility] Serum or plasma chloride trina surement (moles/volume)Ordered By: Mickey Gr on 10-02-2022 Chloride [Moles/Vol] 103 mmol/L 95-114 [facility] Serum or plasma glucose farida urement (mass/volume)Ordered By: Mickey Gr on 10-02-2022 Glucose [Mass/Vol] 223 mg/dL 70-100 [facility] Comment on above: ADA recommended refe rence rangeRandom Glucose Reference Range is dependent on time and content of last meal. Glucose of more than 200 mg/dL in a nonstressed, ambulatory subject supports the diagnosis of Diabetes Mellitus. Serum or plasma potassium me asurement (moles/volume)Ordered By: Mickey Gr on 10-02-2022 Potassium [Moles/Vol] 4.4 mmol/L 3.5-5.1 [facility] Serum or plasma sodium measu rement (moles/volume)Ordered By: Mickey Gr on 10-02-2022 Sodium [Moles/Vol] 135 mmol/L 136-146 [facility] Serum or plasma total carbon dioxide measurement (moles/volume)Ordered By: Mickey Gr on 10-02-2022 CO2 [Moles/Vol] 21.3 mmol/L 22.0-30.0 [facility] Serum or plasma urea nitroge n measurement (mass/volume)Ordered By: Mickey Gr on 10-02-2022 Urea nitrogen [Mass/Vol] 54 mg/dL 9-[address] [facility] WBC Auto (Bld) [#/Vol]Ordere d By: Mickey Gr on 10-02-2022 WBC (Bld) [#/Vol] 7.2 10*3/uL 4.1-10.5 [facility] Glucose Glucometer (BldC) [M ass/Vol]Ordered By: Romain Mendoza on 09-17-2022 Glucose [Mass/Vol] 178 mg/dL [facility] Comment on above: Random Glucose Refer ence Range is dependent on time and content of last meal. Glucose of more than 200 mg/dL in a nonstressed, ambulatory subject supports the diagnosis of Diabetes Mellitus. Glucose Poct Glucometerson 0 09-17-2022 Glucose [Mass/Vol] 178 mg/dL Normal [facility] Comment on above: Result Comment: [place] om Glucose Reference Range is dependent on time and content of last meal. Glucose of more than 200 mg/dL in a nonstressed, ambulatory subject supports the diagnosis of Diabetes Mellitus.PERFORMED BY:[address] [address] [place], [place] [phone] MEDICAL DIRECTORLEVY GILES M.D. Performed By: #### G LULS ####Point of Care testing, Commemt1 Glu2: Cleaned Meter Normal [facility] Comment on above: Result Comment: PERF ORMED BY:[address] [address] [place], [place] [phone] MEDICAL DIRECTORLEVY GILES M.D. Performed By: #### G LULS ####Point of Care testing, Glucose [Mass/Vol] 168 mg/dL Normal [facility] Comment on above: Result Comment: [place] om Glucose Reference Range is dependent on time and content of last meal. Glucose of more than 200 mg/dL in a nonstressed, ambulatory subject supports the diagnosis of Diabetes Mellitus. Performed By: #### G LULS ####Point of Care testing, No Panel InformationOrdered By: Romain Mendoza on 09-17-2022 Bedside Glucose Comment Glu2: cleaned meter [facility] Potassiumon 09-17-2022 Potassium Normal 3.5-5.[address] [facility] Comment on above: Result Comment: Spec imen hemolyzed, redraw requestedPERFORMED BY:[address] [address] [place], [place] [phone] MEDICAL DIRECTORLEVY GILES M.D. Performed By: #### K ####[address] [address] [place] [address] [facility] Redraw Potassiumon Potassium [Moles/Vol] 4.4 mmol/L Normal 3.5-5.1 [facility] Comment on above: Result Comment: PERF ORMED BY:[address] [address] [place], [place] [phone] MEDICAL DIRECTORLEVY GILES M.D. Performed By: #### R EDIVAN K ####[address] [address] [facility] Serum or plasma potassium me asurement (moles/volume)Ordered By: Romain Mendoza on 09-17-2022 Potassium [Moles/Vol] 4.4 mmol/L 3.5-5.1 [facility] Basic Metabolic Panelon 08-20 Anion gap [Moles/Vol] 11.9 mmol/L Normal 6.0-15.0 [facility] Comment on above: Performed By: #### C BC, BMP ####[address] [address] [facility] Calcium [Mass/Vol] 8.1 mg/dL Low 8.2-10.2 [facility] Comment on above: Result Comment: PERF ORMED BY:[address] [address] [place], [place] [phone] MEDICAL LEONELA GILES M.D. Performed By: #### C BC, BMP ####[address] [address] [facility] Chloride [Moles/Vol] 105 mmol/L Normal 95-114 [facility] Comment on above: Performed By: #### C BC, BMP ####[address] [address] [facility] CO2 [Moles/Vol] 22.4 mmol/L Normal 22.0-30.0 [facility] Comment on above: Performed By: #### C BC, BMP ####[address] [place] [address] [facility] Creatinine [Mass/Vol] 3.72 mg/dL High 0.64-1.27 [facility] Comment on above: Performed By: #### C BC, BMP ####[address] [address] [facility] Estimated GFR ( Julissa 22 [facility] Comment on above: Result Comment: GFR estimated reference range: According to KDOQI guidelines, <60 ml/min/1.73m2 is sufficient to diagnose a patient with chronic kidney disease. Performed By: #### C BC, BMP ####[address] [address] [facility] Estimated GFR (Non- Am 18 [facility] Comment on above: Performed By: #### C BC, BMP ####[address] [address] [facility] Glucose [Mass/Vol] 168 mg/dL High 70-100 [facility] Comment on above: Result Comment: [place] [facility] Glucose Reference Range is dependent on time and content of last meal. Glucose of more than 200 mg/dL in a nonstressed, ambulatory subject supports the diagnosis of Diabetes Mellitus. ADA recommended reference range Performed By: #### C BC, BMP ####[address] [address] [facility] Potassium [Moles/Vol] 4.3 mmol/L Normal 3.5-5.1 [facility] Comment on above: Performed By: #### C BC, BMP ####[address] [address] [facility] Sodium [Moles/Vol] 135 mmol/L Low 136-146 [facility] Comment on above: Performed By: #### C BC, BMP ####[address] [address] [facility] Urea nitrogen [Mass/Vol] 48 mg/dL High 9-[address] [facility] Comment on above: Performed By: #### C NEREIDA, BMP ####[address] [address] [facility] Basophils Auto (Bld) [#/Vol] Ordered By: Romain Mendoza on 09-10-2022 Basophils (Bld) [#/Vol] 0.1 10*3/uL 0.0-0.[address] [facility] Basophils/100 WBC Auto (Bld) Ordered By: Romain Mendoza on 09-10-2022 Basophils/100 WBC (Bld) 1.4 % . [facility] Complete Blood Count Auto Di ffon 09-10-2022 Basophils (Bld) [#/Vol] 0.1 10*3/uL Normal 0.0-0.[address] [facility] Comment on above: Result Comment: PERF ORMED BY:[address] [place], [place] [phone] MEDICAL DIRECTORLEVY GILES M.D. Performed By: #### C NEREIDA, BMP ####[place] [id number] [facility] Basophils/100 WBC (Bld) 1.4 % Normal . [facility] Comment on above: Performed By: #### C NEREIDA, BMP ####[place] [id number] [facility] Eosinophils (Bld) [#/Vol] 0.1 10*3/uL Normal 0.0-0.[address] [facility] Comment on above: Performed By: #### C NEREIDA, BMP ####[id number] [facility] Eosinophils/100 WBC (Bld) 2.1 % Normal . [facility] Comment on above: Performed By: #### C BC, BMP ####[place] [id number] [facility] Erythrocyte distribution width (RBC) [Ratio] 13.5 % Normal 12.0-14.[address] [facility] Comment on above: Performed By: #### C NEREIDA, BMP ####[address] [address] [place] Hematocrit (Bld) [Volume fraction] 24.2 % Low 38.8-50.[address] [facility] Comment on above: Performed By: #### C NEREIDA, BMP ####[address] Hemoglobin (Bld) [Mass/Vol] 8.3 g/dL Low 13.0-17.[address] [facility] Comment on above: Performed By: #### C NEREIDA, BMP ####[address] Lymphocytes (Bld) [#/Vol] 1.5 10*3/uL Normal 1.00-4.[address] [facility] Comment on above: Performed By: #### C NEREIDA, BMP ####[address] Lymphocytes/100 WBC (Bld) 22.2 % Normal . [facility] Comment on above: Performed By: #### C NEREIDA, BMP ####[address] MCH (RBC) [Entitic mass] 29.8 pg Normal 27.5-35.[address] [facility] Comment on above: Performed By: #### C NEREIDA, BMP ####[address] MCV (RBC) [Entitic vol] 86.7 fL Normal 83.5-101 [facility] Comment on above: Performed By: #### C NEREIDA, BMP ####[address] Mean Corpuscular HGB Conc 34.4 g/dL Normal 32.5-35.[address] [facility] Comment on above: Performed By: #### C NEREIDA, BMP ####[address] Monocytes (Bld) [#/Vol] 0.4 10*3/uL Normal 0.0-0.[address] [facility] Comment on above: Performed By: #### C NEREIDA, BMP ####[facility] [place] [address] [facility] Monocytes/100 WBC (Bld) 5.5 % Normal . [facility] Comment on above: Performed By: #### C NEREIDA, BMP ####[address] [place] [address] [facility] Neutrophils (Bld) [#/Vol] 4.6 10*3/uL Normal 1.8-7.[address] [facility] Comment on above: Performed By: #### C NEREIDA, BMP ####[address] [place] [address] [facility] Neutrophils/100 WBC (Bld) 68.8 % Normal . [facility] Comment on above: Performed By: #### C NEREIDA, BMP ####[address] [place] [address] [facility] NRBC% 0.1 /100{WBC} Normal 0-0.[address] [facility] Comment on above: Performed By: #### C NEREIDA, BMP ####[address] [address] [facility] Platelet mean volume (Bld) [Entitic vol] 8.4 fL Normal 6.6-10.[address] [facility] Comment on above: Performed By: #### C NEREIDA, BMP ####[address] [address] [facility] Platelets (Bld) [#/Vol] 187 10*3/uL Normal 150-[address] [facility] Comment on above: Performed By: #### C NEREIDA, BMP ####[address] [address] [facility] RBC (Bld) [#/Vol] 2.79 10*6/uL Low 3.90-5.60 [facility] Comment on above: Performed By: #### C NEREIDA, BMP ####[address] [place] [address] [facility] WBC (Bld) [#/Vol] 6.7 10*3/uL Normal 4.1-10.5 [facility] Comment on above: Performed By: #### C NEREIDA, BMP ####[facility] [id number] [place] [id number] [facility] Creatinine and Glomerular fi ltration rate.predicted panel (S/P/Bld)Ordered By: Romain Mendoza on 09-10-2022 Creatinine [Mass/Vol] 3.72 mg/dL 0.64-1.27 [facility] Eosinophils Auto (Bld) [#/Vo l]Ordered By: Romain Mendoza on 09-10-2022 Eosinophils (Bld) [#/Vol] 0.1 10*3/uL 0.0-0.[address] [facility] Eosinophils/100 WBC Auto (Bl d)Ordered By: Romain Mendoza on 09-10-2022 Eosinophils/100 WBC (Bld) 2.1 % . [facility] Erythrocyte distribution wid th Auto (RBC) [Ratio]Ordered By: Romain Mendoza on 09-10-2022 Erythrocyte distribution width (RBC) [Ratio] 13.5 % 12.0-14.[address] [facility] Estimated glomerular filtrat ion rate (GFR) non- AmericanOrdered By: Romain Mendoza on 09-10-2022 GFR/1.73 sq M.predicted among non-blacks MDRD (S/P/Bld) [Vol rate/Area] 18 mL/Min [facility] Hematocrit Auto (Bld) [Volum e fraction]Ordered By: Romain Mendoza on 09-10-2022 Hematocrit (Bld) [Volume fraction] 24.2 % 38.8-50.[address] [facility] Hemoglobin [Mass/volume] in BloodOrdered By: Romain Mendoza on 09-10-2022 Hemoglobin (Bld) [Mass/Vol] 8.3 g/dL 13.0-17.[address] [facility] Leukocytes [#/volume] correc celena for nucleated erythrocytes in Blood by Automated counOrdered By: Romain Mendoza on 09-10-2022 WBC corrected for nucl RBC Auto (Bld) [#/Vol] 6.7 10*3/uL 4.1-10.[address] [facility] Lymphocytes Auto (Bld) [#/Vo l]Ordered By: Romain Mendoza on 09-10-2022 Lymphocytes (Bld) [#/Vol] 1.5 10*3/uL 1.00-4.[address] [facility] Lymphocytes/100 WBC Auto (Bl d)Ordered By: Romain Mendoza on 09-10-2022 Lymphocytes/100 WBC (Bld) 22.2 % . [facility] MCH Auto (RBC) [Entitic mass ]Ordered By: Romain Mendoza on 09-10-2022 MCH (RBC) [Entitic mass] 29.8 pg 27.5-35.[address] [facility] MCHC Auto (RBC) [Mass/Vol]Or dered By: Romain Mendoza on 09-10-2022 MCHC (RBC) [Mass/Vol] 34.4 g/dL 32.5-35.6 [facility] MCV Auto (RBC) [Entitic vol] Ordered By: Romain Mendoza on 09-10-2022 MCV (RBC) [Entitic vol] 86.7 fL 83.5-101 [facility] Monocytes Auto (Bld) [#/Vol] Ordered By: Romain Mendoza on 09-10-2022 Monocytes (Bld) [#/Vol] 0.4 10*3/uL 0.0-0.[address] [facility] Monocytes/100 WBC Auto (Bld) Ordered By: Romain Mendoza on 09-10-2022 Monocytes/100 WBC (Bld) 5.5 % . [facility] Neutrophils Auto (Bld) [#/Vo l]Ordered By: Romain Mendoza on 09-10-2022 Neutrophils (Bld) [#/Vol] 4.6 10*3/uL 1.8-7.[address] [facility] Neutrophils/100 WBC Auto (Bl d)Ordered By: Romain Mendoza on 09-10-2022 Neutrophils/100 WBC (Bld) 68.8 % . [facility] No Panel InformationOrdered By: Romain Mendoza on 09-10-2022 Estimated GFR () 22 mL/Min [facility] Comment on above: GFR estimated refere nce range: According to KDOQI guidelines, <60 ml/min/1.73m2 is sufficient to diagnose a patient with chronic kidney disease. Pharmacy Creatinine Clearance (Chem N/A [facility] Nucleated erythrocytes [Pres ence] in Blood by Automated countOrdered By: Romain Mendoza on 09-10-2022 Nucleated RBC Auto Ql (Bld) 0.1 /100{WBC} 0-0.[address] [facility] Platelet mean volume Auto (B ld) [Entitic vol]Ordered By: Romain Mendoza on 09-10-2022 Platelet mean volume (Bld) [Entitic vol] 8.4 fL 6.6-10.[address] [facility] Platelets Auto (Bld) [#/Vol] Ordered By: Romain Mendoza on 09-10-2022 Platelets (Bld) [#/Vol] 187 10*3/uL 150-[address] [facility] RBC Auto (Bld) [#/Vol]Ordere d By: Romain Mendoza on 09-10-2022 RBC (Bld) [#/Vol] 2.79 10*6/uL 3.90-5.60 [facility] Serum or plasma anion gap de terminationOrdered By: Romain Mendoza on 09-10-2022 Anion gap [Moles/Vol] 11.9 mmol/L 6.0-15.0 [facility] Serum or plasma calcium farida urement (mass/volume)Ordered By: Romain Mendoza on 09-10-2022 Calcium [Mass/Vol] 8.1 mg/dL 8.2-10.2 [facility] Serum or plasma chloride trina surement (moles/volume)Ordered By: Romain Mendoza on 09-10-2022 Chloride [Moles/Vol] 105 mmol/L 95-114 [facility] Serum or plasma glucose farida urement (mass/volume)Ordered By: Romain Mendoza on 09-10-2022 Glucose [Mass/Vol] 168 mg/dL 70-100 [facility] Comment on above: ADA recommended refe rence rangeRandom Glucose Reference Range is dependent on time and content of last meal. Glucose of more than 200 mg/dL in a nonstressed, ambulatory subject supports the diagnosis of Diabetes Mellitus. Serum or plasma potassium me asurement (moles/volume)Ordered By: Romain Mendoza on 09-10-2022 Potassium [Moles/Vol] 4.3 mmol/L 3.5-5.1 [facility] Serum or plasma sodium measu rement (moles/volume)Ordered By: Romain Mendoza on 09-10-2022 Sodium [Moles/Vol] 135 mmol/L 136-146 [facility] Serum or plasma total carbon dioxide measurement (moles/volume)Ordered By: Romain Mendoza on 09-10-2022 CO2 [Moles/Vol] 22.4 mmol/L 22.0-30.0 [facility] Serum or plasma urea nitroge n measurement (mass/volume)Ordered By: Romain Mendoza on 09-10-2022 Urea nitrogen [Mass/Vol] 48 mg/dL 05-[address] [facility] WBC Auto (Bld) [#/Vol]Ordere d By: Romain Mendoza on 09-10-2022 WBC (Bld) [#/Vol] 6.7 10*3/uL 4.1-10.5 [facility] US venous mapping BI upperon 09-06-2022 US venous mapping BI upper Normal [facility] Lab Reportson 09-03-2022 Lab Reports [id number]:127 Normal [facility] Lab Reports [id number]:127 Normal [facility] Albumin [Mass/volume] in Ser um or PlasmaOrdered By: Jorje Small on 09-01-2022 Albumin [Mass/Vol] 2.9 g/dL 2.9-4.4 [facility] Automated erythrocytes count in urine sediment (number/area)Ordered By: Mickey Guerin on 09-01-2022 RBC Auto (Urine sed) [#/Area] 5-9 [HPF] 0-[address] [facility] Automated leukocytes count i n urine sediment (number/area)Ordered By: Mickey Guerin on 09-01-2022 WBC Auto (Urine sed) [#/Area] 5-9 [HPF] 0-[address] [facility] Automated urine hyaline cast s count (number/volume)Ordered By: Mickey Guerin on 09-01-2022 Hyaline casts Auto (U) [#/Vol] 0-8 [LPF] 0-[address] [facility] Basophils Auto (Bld) [#/Vol] Ordered By: Jorje Small on 09-01-2022 Basophils (Bld) [#/Vol] 0.1 10*3/uL 0.0-0.[address] [facility] Basophils/100 WBC Auto (Bld) Ordered By: Jorje Small on 09-01-2022 Basophils/100 WBC (Bld) 1.7 % . [facility] Bilirubin Test strip Ql (U)O rdered By: Mickey Guerin on 09-01-2022 Bilirubin Ql (U) Negative Negative [facility] Casts typing in urine sedime nt by light microscopyOrdered By: Mickey Guerin on 09-01-2022 Casts LM Nom (Urine sed) None seen [LPF] None Seen [facility] Color Auto (U)Ordered By: Oanh Guerin on 09-01-2022 Color (U) Yellow Yellow [facility] Complete Blood Count Auto Di ffon 09-01-2022 Basophils (Bld) [#/Vol] 0.1 10*3/uL Normal 0.0-0.[address] [facility] Comment on above: Result Comment: PERF ORMED BY:[address] [place], [place] [phone] MEDICAL DIRECTORLEVY GILES M.D. Performed By: #### K APPA, SPE, MELIDA SERUM ####[facility] ,#### CBC ####[address] Basophils/100 WBC (Bld) 1.7 % Normal . [facility] Comment on above: Performed By: #### K APPA, SPE, MELIDA SERUM ####[facility] ,#### CBC ####[address] Eosinophils (Bld) [#/Vol] 0.1 10*3/uL Normal 0.0-0.[address] [facility] Comment on above: Performed By: #### K APPA, SPE, MELIDA SERUM ####[facility] ,#### CBC ####[address] Eosinophils/100 WBC (Bld) 2.3 % Normal . [facility] Comment on above: Performed By: #### K APPA, SPE, MELIDA SERUM ####[facility] ,#### CBC ####[address] Erythrocyte distribution width (RBC) [Ratio] 13.2 % Normal 12.0-14.[address] [facility] Comment on above: Performed By: #### K APPA, SPE, MELIDA SERUM ####[facility] ,#### CBC ####[address] Hematocrit (Bld) [Volume fraction] 27.2 % Low 38.8-50.[address] [facility] Comment on above: Performed By: #### K APPA, SPE, MELIDA SERUM ####[facility] ,#### CBC ####[address] Hemoglobin (Bld) [Mass/Vol] 9.5 g/dL Low 13.0-17.[address] [facility] Comment on above: Performed By: #### K APPA, SPE, MELIDA SERUM ####[facility] ,#### CBC ####[address] Lymphocytes (Bld) [#/Vol] 1.3 10*3/uL Normal 1.00-4.[address] [facility] Comment on above: Performed By: #### K APPA, SPE, MELIDA SERUM ####[facility] ,#### CBC ####[address] Lymphocytes/100 WBC (Bld) 20.4 % Normal . [facility] Comment on above: Performed By: #### K APPA, SPE, MELIDA SERUM ####[facility] ,#### CBC ####[address] MCH (RBC) [Entitic mass] 30.1 pg Normal 27.5-35.[address] [facility] Comment on above: Performed By: #### K APPA, SPE, MELIDA SERUM ####[facility] ,#### CBC ####[address] MCV (RBC) [Entitic vol] 86.2 fL Normal 83.5-101 [facility] Comment on above: Performed By: #### K APPA, SPE, MELIDA SERUM ####[facility] ,#### CBC ####[address] Mean Corpuscular HGB Conc 34.9 g/dL Normal 32.5-35.[address] [facility] Comment on above: Performed By: #### K APPA, SPE, MELIDA SERUM ####[facility] ,#### CBC ####[address] Monocytes (Bld) [#/Vol] 0.3 10*3/uL Normal 0.0-0.[address] [facility] Comment on above: Performed By: #### K APPA, SPE, MELIDA SERUM ####[facility] ,#### CBC ####[address] Monocytes/100 WBC (Bld) 5.5 % Normal . [facility] Comment on above: Performed By: #### K APPA, SPE, MELIDA SERUM ####[facility] ,#### CBC ####[address] Neutrophils (Bld) [#/Vol] 4.3 10*3/uL Normal 1.8-7.[address] [facility] Comment on above: Performed By: #### K APPA, SPE, MELIDA SERUM ####[facility] ,#### CBC ####[address] Neutrophils/100 WBC (Bld) 70.1 % Normal . [facility] Comment on above: Performed By: #### K APPA, SPE, MELIDA SERUM ####[facility] ,#### CBC ####[address] NRBC% 0.2 /100{WBC} Normal 0-0.[address] [facility] Comment on above: Performed By: #### K APPA, SPE, MELIDA SERUM ####[facility] ,#### CBC ####[address] Platelet mean volume (Bld) [Entitic vol] 8.3 fL Normal 6.6-10.[address] [facility] Comment on above: Performed By: #### K APPA, SPE, MELIDA SERUM ####[facility] ,#### CBC ####[address] Platelets (Bld) [#/Vol] 217 10*3/uL Normal 150-[address] [facility] Comment on above: Performed By: #### K APPA, SPE, MELIDA SERUM ####[facility] ,#### CBC ####[address] RBC (Bld) [#/Vol] 3.16 10*6/uL Low 3.90-5.60 [facility] Comment on above: Performed By: #### K APPA, SPE, MELIDA SERUM ####[facility] ,#### CBC ####[address] [address] [facility] WBC (Bld) [#/Vol] 6.2 10*3/uL Normal 4.1-10.5 [facility] Comment on above: Performed By: #### K APPA, SPE, MELIDA SERUM ####[facility] ,#### CBC ####[address] [address] [place] Dipstick and Microscopicon 0 - Appearance (U) Cloudy Critically abnormal Clear [facility] Comment on above: Order Comment: Name Collection Type:: Clean-Voided Midstream Performed By: #### A DDONUAPLUS, URMA, MISC LAB ####[address] [address] [facility] Bacteria,Urine None Seen Normal None Seen [facility] Comment on above: Order Comment: Name Collection Type:: Clean-Voided Midstream Performed By: #### A DDONUAPLUS, URMA, MISC LAB ####[address] [address] [facility] Bilirubin,Urine Negative Normal Negative [facility] Comment on above: Order Comment: Name Collection Type:: Clean-Voided Midstream Performed By: #### A DDONUAPLUS, URMA, MISC LAB ####[address] [address] [facility] Color (U) Yellow Normal Yellow [facility] Comment on above: Order Comment: Name Collection Type:: Clean-Voided Midstream Performed By: #### A DDONUAPLUS, URMA, MISC LAB ####[address] [address] [facility] Fine Granular Casts,Urine 3-4 High 0-[address] [facility] Comment on above: Order Comment: Name Collection Type:: Clean-Voided Midstream Performed By: #### A DDONUAPLUS, URMA, MISC LAB ####[place] [id number] [facility] Glucose Ql (U) >=[address] [facility] Comment on above: Order Comment: Name Collection Type:: Clean-Voided Midstream Performed By: #### A DDONUAPLUS, URMA, MISC LAB ####[address] [address] [facility] Hyaline Casts,Urine 0-8 Normal 0-1 [facility] Comment on above: Order Comment: Name Collection Type:: Clean-Voided Midstream Performed By: #### A DDONUAPLUS, URMA, MISC LAB ####[address] [address] [facility] Ketones Ql (U) Negative Normal Negative [facility] Comment on above: Order Comment: Name Collection Type:: Clean-Voided Midstream Performed By: #### A DDONUAPLUS, URMA, MISC LAB ####[address] [address] [facility] Leukocyte esterase Test strip Ql (U) Negative Normal Negative [facility] Comment on above: Order Comment: Name Collection Type:: Clean-Voided Midstream Performed By: #### A DDONUAPLUS, URMA, MISC LAB ####[address] [address] [facility] Nitrite,Urine Negative Normal Negative [facility] Comment on above: Order Comment: Name Collection Type:: Clean-Voided Midstream Performed By: #### A DDONUAPLUS, URMA, MISC LAB ####[address] [address] [facility] Occult Blood,Urine Trace High Negative [facility] Comment on above: Order Comment: Name Collection Type:: Clean-Voided Midstream Result Comment: PERF ORMED BY:[address] DENTSOU[place], [place] [id number] MEDICAL LEONELA GILES M.D. Performed By: #### A DDONUAPLUS, URMA, MISC LAB ####[address] [address] [facility] Other Casts,Urine None Seen Normal None Seen [facility] Comment on above: Order Comment: Name Collection Type:: Clean-Voided Midstream Result Comment: PERF ORMED BY:[address] JIMENEZCHIC[place], [place] [phone] MEDICAL DIRECTORLEVY GILES M.D. Performed By: #### A DDONUAPLUS, URMA, MISC LAB ####[address] [address] [facility] pH (U) 5.0 [pH] Normal 5.0-9.[address] [facility] Comment on above: Order Comment: Name Collection Type:: Clean-Voided Midstream Performed By: #### A DDONUAPLUS, URMA, MISC LAB ####[address] [address] [facility] Protein,Urine >=[address] [facility] Comment on above: Order Comment: Name Collection Type:: Clean-Voided Midstream Performed By: #### A DDONUAPLUS, URMA, MISC LAB ####[address] [address] [facility] RBC,Urine 5-9 High 0-[address] [facility] Comment on above: Order Comment: Name Collection Type:: Clean-Voided Midstream Performed By: #### A DDONUAPLUS, URMA, MISC LAB ####[address] [address] [facility] Renal Epithelial Cells,Urine None Seen Normal 0-[address] [facility] Comment on above: Order Comment: Name Collection Type:: Clean-Voided Midstream Performed By: #### A DDONUAPLUS, URMA, MISC LAB ####[address] [address] [facility] Specificy [place],Urine 1.016 Normal 1.00 1-1.[address] [facility] Comment on above: Order Comment: Name Collection Type:: Clean-Voided Midstream Performed By: #### A DDONUAPLUS, URMA, MISC LAB ####[address] [address] [facility] Squamous Epithelial Cell,Urine 5-9 High 0-[address] [facility] Comment on above: Order Comment: Name Collection Type:: Clean-Voided Midstream Performed By: #### A MILAN KRUSE, [facility] ####[facility] Urobilinogen,Urine Normal Normal Normal [facility] Comment on above: Order Comment: Name Collection Type:: Clean-Voided Midstream Performed By: #### A DDMILAN MCINTYRE, [facility] ####[place] [address] WBC,Urine 5-9 High 0-[address] [facility] Comment on above: Order Comment: Name Collection Type:: Clean-Voided Midstream Performed By: #### A MILAN KRUSE, [facility] ####[place] [address] Eosinophils Auto (Bld) [#/Vo l]Ordered By: Jorje Small on 09-01-2022 Eosinophils (Bld) [#/Vol] 0.1 10*3/uL 0.0-0.[address] [facility] Eosinophils/100 WBC Auto (Bl d)Ordered By: Jorje Small on 09-01-2022 Eosinophils/100 WBC (Bld) 2.3 % . [facility] Erythrocyte distribution wid th Auto (RBC) [Ratio]Ordered By: Jorje Small on 09-01-2022 Erythrocyte distribution width (RBC) [Ratio] 13.2 % 12.0-14.[address] [facility] Fine granular cast count in urine sediment by microscopy (number/low power field )Ordered By: Mickey Guerin on 09-01-2022 Fine Granular Casts LM.LPF (Urine sed) [#/Area] 3-4 [LPF] 0-[address] [facility] Free K+L LT Chains, Qn, Son 09-01-2022 Free [place] Light Chains, S 128.0 mg/L High 3.3-19.[address] [facility] Comment on above: Performed By: #### K APPA, SPE, MELIDA SERUM ####[facility] ,#### CBC ####[address] Free [place] Light Chains, S 77.5 mg/L High 5.7-26.[address] [facility] Comment on above: Performed By: #### K APPA, SPE, MELIDA SERUM ####[facility] ,#### CBC ####[address] [place]/Lambda Ratio, S 1.65 Normal 0.26-1.65 [facility] Comment on above: Result Comment: Perf ormed at: - [facility] [address] [id number] Stemhole Borer: Pablito Alexander PhD, Phone: [phone] BY:[address] [place], [place] [phone] MEDICAL DIRECTORLEVY GILES M.D. Performed By: #### K APPA, SPE, EMLIDA SERUM ####[facility] ,#### CBC ####[address] Hematocrit Auto (Bld) [Volum e fraction]Ordered By: Jorje Small on 09-01-2022 Hematocrit (Bld) [Volume fraction] 27.2 % 38.8-50.[address] [facility] Hemoglobin [Mass/volume] in BloodOrdered By: Jorje Small on 09-01-2022 Hemoglobin (Bld) [Mass/Vol] 9.5 g/dL 13.0-17.[address] [facility] IgA [Mass/volume] in Serum o r PlasmaOrdered By: Jorje Small on 09-01-2022 IgA [Mass/Vol] 314 mg/dL 90-[address] [facility] IgG [Mass/volume] in Serum o r PlasmaOrdered By: Jorje Small on 09-01-2022 IgG [Mass/Vol] 1043 mg/dL 603-[address] [facility] IgM [Mass/volume] in Serum o r PlasmaOrdered By: Jorje Small on 09-01-2022 IgM [Mass/Vol] 189 mg/dL 20-[address] [facility] Comment on above: Performed at: [facility] [place], [place] [id number] Director: Pablito Alexander PhD, Phone: [phone] Immunofixation,Serumon 09-01 Immunofixation, Serum Comment: Normal . [facility] Comment on above: Result Comment: Pres ence of monoclonal protein is unclear at this time. Suggest repeat in 3 to 6 months if clinically indicated. Performed By: #### K APPA, SPE, MELIDA SERUM ####[facility] ,#### CBC ####[place] [address] [place] [address] [facility] Immunoglobulin A, Serum 314 mg/dL Normal 90-386 [facility] Comment on above: Performed By: #### K APPA, SPE, MELIDA SERUM ####[facility] ,#### CBC ####[address] [address] [facility] Immunoglobulin G 1043 mg/dL Normal 603-1613 [facility] Comment on above: Performed By: #### K APPA, SPE, MELIDA SERUM ####[facility] ,#### CBC ####[address] [address] [place] Immunoglobulin M, Serum 189 mg/dL High 20-172 [facility] Comment on above: Result Comment: Perf ormed at: - [facility] Only [address] [place], [place] [id number] Stemhole Borer: Pablito Alexander PhD, Phone: [phone] Performed By: #### K APPA, SPE, MELIDA SERUM ####[facility] ,#### CBC ####[address] [address] [facility] Immunoglobulin light chains. kappa.free [Mass/volume] in SerumOrdered By: Jorje Small on 01-14-2023 Immunoglobulin light chains.kappa.free (S) [Mass/Vol] 128.0 mg/L 3.3-19.[address] [facility] Immunoglobulin light chains. kappa.free/Immunoglobulin light chains.lambda.free [MassOrdered By: Jorje Small on 09-01-2022 Immunoglobulin light chains.kappa.free/Immun oglobulin light chains.lambda.free (S) [Mass ratio] 1.65 0.26-1.[address] [facility] Comment on above: Performed at: [address] [id number] Director: Pablito Alexander PhD, Phone: [phone] Immunoglobulin light chains. lambda.free [Mass/volume] in Serum or PlasmaOrdered By: Jorje Small on 09-01-2022 Immunoglobulin light chains.lambda.free [Mass/Vol] 77.5 mg/L 5.7-26.[address] [facility] Ketones Auto test strip (U) [Mass/Vol]Ordered By: Mickey Guerin on 09-01-2022 Ketones (U) [Mass/Vol] Negative Negative [facility] Leukocytes [#/volume] correc celena for nucleated erythrocytes in Blood by Automated counOrdered By: Jorje Small on 09-01-2022 WBC corrected for nucl RBC Auto (Bld) [#/Vol] 6.2 10*3/uL 4.1-10.[address] [facility] Lymphocytes Auto (Bld) [#/Vo l]Ordered By: Jorje Small on 09-01-2022 Lymphocytes (Bld) [#/Vol] 1.3 10*3/uL 1.00-4.[address] [facility] Lymphocytes/100 WBC Auto (Bl d)Ordered By: Jorje Small on 09-01-2022 Lymphocytes/100 WBC (Bld) 20.4 % . [facility] MCH Auto (RBC) [Entitic mass ]Ordered By: Jorje Small on 09-01-2022 MCH (RBC) [Entitic mass] 30.1 pg 27.5-35.[address] [facility] MCHC Auto (RBC) [Mass/Vol]Or dered By: Jorje Small on 09-01-2022 MCHC (RBC) [Mass/Vol] 34.9 g/dL 32.5-35.6 [facility] MCV Auto (RBC) [Entitic vol] Ordered By: Jorje Small on 09-01-2022 MCV (RBC) [Entitic vol] 86.2 fL 83.5-101 [facility] MISC LABon [facility]-01-2022 [facility] Comment on above: Order Comment: [facility] Test Name: [id number] MICROALBUMIN, URINE Result Comment: See report. Scanned copy available in EMR.PERFORMED BY:[place] [address] [facility], [place] [phone] MEDICAL DIRECTORLEVY GILES M.D. Performed By: #### A MILAN [facility] ####[place] [address] [place] [address] [facility] Microalbumin, Urine (Random) on 09-01-2022 Microalbumin, Urine (Random) Normal 0.0-1.[address] [facility] Comment on above: Result Comment: SENT TO [facility] SEE REPORTPERFORMED BY:[place] [address] [facility] [place], [place] [phone] MEDICAL DIRECTORLEVY GILES M.D. Performed By: #### A MILAN [facility] ####[address] [address] [facility] Monocytes Auto (Bld) [#/Vol] Ordered By: Jorje Small on 09-01-2022 Monocytes (Bld) [#/Vol] 0.3 10*3/uL 0.0-0.[address] [facility] Monocytes/100 WBC Auto (Bld) Ordered By: Jorje Small on 09-01-2022 Monocytes/100 WBC (Bld) 5.5 % . [facility] Neutrophils Auto (Bld) [#/Vo l]Ordered By: Jorje Small on 09-01-2022 Neutrophils (Bld) [#/Vol] 4.3 10*3/uL 1.8-7.[address] [facility] Neutrophils/100 WBC Auto (Bl d)Ordered By: Jorje Small on 09-01-2022 Neutrophils/100 WBC (Bld) 70.1 % . [facility] Nitrite Test strip Ql (U)Ord ered By: Mickey Guerin on 09-01-2022 Nitrite Ql (U) Negative Negative [facility] No Panel InformationOrdered By: Mickey Guerin on 09-01-2022 Miscellaneous Test See comment [facility] Comment on above: See report. Scanned copy available in EMR. No Panel InformationOrdered By: Jorje Small on 09-01-2022 Protein Electrophoresis [place] Not observed g/dL Not Observed [facility] Protein Electrophoresis Note See comment . [facility] Comment on above: Protein electrophore sis scan will follow via computer,mail, or manager photography delivery.Performed at: [facility] [id number] Director: Pablito Alexander PhD, Phone: [phone] Serum Immunofixation Comment: . [facility] Comment on above: Presence of monoclon al protein is unclear at this time. Suggestrepeat in 3 to 6 months if clinically indicated. Nucleated erythrocytes [Pres ence] in Blood by Automated countOrdered By: Jorje Small on 09-01-2022 Nucleated RBC Auto Ql (Bld) 0.2 /100{WBC} 0-0.[address] [facility] Platelet mean volume Auto (B ld) [Entitic vol]Ordered By: Jorje Small on 09-01-2022 Platelet mean volume (Bld) [Entitic vol] 8.3 fL 6.6-10.[address] [facility] Platelets Auto (Bld) [#/Vol] Ordered By: Jorje Small on 09-01-2022 Platelets (Bld) [#/Vol] 217 10*3/uL 150-[address] [facility] Protein Auto test strip (U) [Mass/Vol]Ordered By: Mickey Guerin on 09-01-2022 Protein (U) [Mass/Vol] mg/dL Negative [facility] Protein Electrophoresis, Ser umon 09-01-2022 Albumin [Mass/Vol] 2.9 g/dL Normal 2.9-4.4 [facility] Comment on above: Performed By: #### K APPA, SPE, MELIDA SERUM ####[facility] ,#### CBC ####[address] Albumin/Globulin [Mass ratio] 1.0 {ratio} Normal 0.7-1.[address] [facility] Comment on above: Performed By: #### K APPA, SPE, MELIDA SERUM ####[facility] ,#### CBC ####[address] Glpen-0-Cwmwgkkh 0.2 g/dL Normal 0.0-0.4 [facility] Comment on above: Performed By: #### K APPA, SPE, MELIDA SERUM ####[facility] ,#### CBC ####[address] Ulqlq-9-Moedbevl 0.9 g/dL Normal 0.4-1.0 [facility] Comment on above: Performed By: #### K APPA, SPE, MELIDA SERUM ####[facility] ,#### CBC ####[place] [address] [place] Beta Globulin 0.8 g/dL Normal 0.7-1.[address] [facility] Comment on above: Performed By: #### K APPA, SPE, MELIDA SERUM ####[facility] ,#### CBC ####[place] [id number] [place] Gamma Globulin 1.1 g/dL Normal 0.4-1.[address] [facility] Comment on above: Performed By: #### K APPA, SPE, MELIDA SERUM ####[facility] ,#### CBC ####[place] [id number] [place] Globulin (S) [Mass/Vol] 3.0 g/dL Normal 2.2-3.9 [facility] Comment on above: Performed By: #### K APPA, SPE, MELIDA SERUM ####[facility] ,#### CBC ####[address] [place] Not Observed Normal Not Observed [facility] Comment on above: Performed By: #### K APPA, SPE, MELIDA SERUM ####[facility] ,#### CBC ####[address] Protein [Mass/Vol] 5.9 g/dL Low 6.0-8.5 [facility] Comment on above: Performed By: #### K APPA, SPE, MELIDA SERUM ####[facility] ,#### CBC ####[address] SPE-Note Normal . [facility] Comment on above: Result Comment: Prot ein electrophoresis scan will follow via computer, mail, or manager photography delivery. Performed at: - [facility] [id number] Stemhole Borer: Pablito Alexander PhD, Phone: [phone] Performed By: #### K APPA, SPE, MELIDA SERUM ####[facility] ,#### CBC ####[address] Protein [Mass/volume] in Ser um or PlasmaOrdered By: Jorje Small on 09-01-2022 Protein [Mass/Vol] 5.9 g/dL 6.0-8.5 [facility] RBC Auto (Bld) [#/Vol]Ordere d By: Jorje Small on 09-01-2022 RBC (Bld) [#/Vol] 3.16 10*6/uL 3.90-5.60 [facility] Serum globulin measurement ( mass/volume)Ordered By: Jorje Small on 09-01-2022 Globulin (S) [Mass/Vol] 3.0 g/dL 2.2-3.9 [facility] Serum or plasma albumin/glob ulin mass ratioOrdered By: Jorje Small on 09-01-2022 Albumin/Globulin [Mass ratio] 1.0 {ratio} 0.7-1.[address] [facility] Serum or plasma alpha 1 glob ulin measurement by electrophoresis (mass/volume)Ordered By: Jorje Small on 09-01-2022 Alpha 1 globulin Elph [Mass/Vol] 0.2 g/dL 0.0-0.[address] [facility] Serum or plasma alpha 2 glob ulin measurement by electrophoresis (mass/volume)Ordered By: Jorje Small on 09-01-2022 Alpha 2 globulin Elph [Mass/Vol] 0.9 g/dL 0.4-1.[address] [facility] Serum or plasma beta globuli n measurement by electrophoresis (mass/volume)Ordered By: Jorje Small on 09-01-2022 Beta globulin Elph [Mass/Vol] 0.8 g/dL 0.7-1.[address] [facility] Serum or plasma gamma globul in measurement by electrophoresis (mass/volume)Ordered By: Jorje Small on 09-01-2022 Gamma globulin Elph [Mass/Vol] 1.1 g/dL 0.4-1.[address] [facility] Specific gravity Auto test s trip (U) [Rel density]Ordered By: Mickey Guerin on 09-01-2022 Specific gravity (U) [Rel density] 1.016 1.001-1.[address] [facility] Squamous epithelial cells de tection in urine sediment by light microscopyOrdered By: Mickey Guerin on 09-01-2022 Epithelial cells.squamous LM Ql (Urine sed) 5-9 [HPF] 0-[address] [facility] Urine bacteria detection by automated methodOrdered By: Mickey Guerin on 09-01-2022 Bacteria Auto Ql (U) None seen None Seen [facility] Urine clarity by refractomet ry automatedOrdered By: Mickey Guerin on 09-01-2022 Clarity Refractometry automated (U) Cloudy Clear [facility] Urine glucose measurement by automated test strip (mass/volume)Ordered By: Mickey Guerin on 09-01-2022 Glucose Auto test strip (U) [Mass/Vol] >=1000 mg/dL Normal [facility] Urine hemoglobin detection b y automated test stripOrdered By: Mickey Guerin on 09-01-2022 Hemoglobin Auto test strip Ql (U) Trace Negative [facility] Urine leukocyte esterase det ection by automated test stripOrdered By: Mickey Guerin on 09-01-2022 Leukocyte esterase Auto test strip Ql (U) Negative Negative [facility] Urine microalbumin measureme nt with detection limit of 20 mg/L or less (mass/volume)Ordered By: Mickey Guerin on 09-01-2022 Albumin DL <= 20 mg/L (U) [Mass/Vol] See comment 0.0-1.[address] [facility] Comment on above: S[facility] TO [facility] Urine sediment renal epithel ial cell count by microscopy (number/high power field)Ordered By: Mickey Guerin on 09-01-2022 Epithelial cells.renal LM.HPF (Urine sed) [#/Area] None seen [HPF] 0-[address] [facility] Urobilinogen Auto test strip (U) [Mass/Vol]Ordered By: Mickey Guerin on 09-01-2022 Urobilinogen (U) [Mass/Vol] Normal mg/dL Normal [facility] WBC Auto (Bld) [#/Vol]Ordere d By: Jorje Small on 09-01-2022 WBC (Bld) [#/Vol] 6.2 10*3/uL 4.1-10.5 [facility] pH Auto test strip (U)Ordere d By: Mickey Guerin on 09-01-2022 pH (U) 5.0 [pH] 5.0-9.[address] 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 Asymptomatic microscopic hematuria Glucosuria Proteinuria Tests Performed Urnls Dip Stick Auto w/o Microscopy POC 40070 Your Care Team Attending Physician - TRUONG MOLINA, Mickey Tovar Primary Care Physician - ROLANDO OLIVARES DO Referring Physician - ROLANDO OLIVARES DO This Is Your Medications List Contact prescribing physician if questions or concerns Non-Formulary Medication (cinnamon and chromium) atorvastatin (atorvastatin 80 mg Tab) carvedilol (carvedilol 12.5 mg Tab) clopidogrel (Plavix 75 mg Tab) ergocalciferol (Vitamin D) escitalopram (escitalopram 10 mg Tab) famotidine (famotidine 20 mg Tab) furosemide (Lasix) furosemide (furosemide 40 mg Tab) hydrALAZINE (hydrALAZINE 25 mg Tab) insulin glargine (Basaglar KwikPen) isosorbide dinitrate losartan metformin (metformin 500 mg ER Tab) omeprazole (omeprazole 40 mg Cap-DR) ubiquinone (CoQ10) Procedures Performed LT knee scope, Placement of stent in cardiac conduit, Vasectomy. Discharge Vitals Heart Rate (Peripheral) 76 Blood Pressure 129/88 Height 182 cm Height 72 in Weight 76.2 kg Weight 167.64 lb BMI 23 What to do next You Need to Schedule the Following Appointments Follow Up with TRUONG MOLINA, Mickey Tovar, RACHANA When: Where: [facility] [address], [place] [address]- Someone Will Contact You Regarding These Appointments [facility] External Ambulatory Referral, Service not offered at [facility], Urology, 08/29/22 11:33:00 EST Medications What How Much When Instructions Unchanged atorvastatin (atorvastatin 80 mg Tab) Every day Contact prescribing physician if questions or concerns Unchanged carvedilol (carvedilol 12.5 mg Tab) 2 times a day Contact prescribing physician if questions or concerns Unchanged clopidogrel (Plavix 75 mg Tab) Every day Contact prescribing physician if questions or concerns Unchanged ergocalciferol (Vitamin D) Every week Contact prescribing physician if questions or concerns Unchanged escitalopram (escitalopram 10 mg Tab) Every day Contact prescribing physician if questions or concerns Unchanged famotidine (famotidine 20 mg Tab) 2 times a day Contact prescribing physician if questions or concerns Unchanged furosemide (furosemide 40 mg Tab) Every day Contact prescribing physician if questions or concerns Unchanged furosemide (Lasix) Every day Contact prescribing physician if questions or concerns Unchanged hydrALAZINE (hydrALAZINE 25 mg Tab) 4 times a day Contact prescribing physician if questions or concerns Unchanged insulin glargine (Basaglar KwikPen) Every day Contact prescribing physician if questions or concerns Unchanged isosorbide dinitrate Contact prescribing physician if questions or concerns Unchanged losartan Every day Contact prescribing physician if questions or concerns Unchanged metformin (metformin 500 mg ER Tab) Every day Contact prescribing physician if questions or concerns Unchanged Non-Formulary Medication (cinnamon and chromium) Contact prescribing physician if questions or concerns Unchanged omeprazole (omeprazole 40 mg Cap-DR) Every day Contact prescribing physician if questions or concerns Unchanged ubiquinone (CoQ10) Every day Contact prescribing physician if questions or concerns Test Results Urnls Dip Stick Auto w/o Microscopy POC 58002 (08/29/2022) Bilirubin Urine Dipstick - Negative Blood Urine Dipstick - 1+ Small Glucose Urine Dipstick - Trace 100 mg/dl Ketones Urine Dipstick - Negative Leukocytes Urine Dipstick - Negative Nitrite Urine Dipstick - Negative Protein Urine Dipstick - 3+ (300 mg/dl) Specific [place] Urine Dipstick - 1.025 Urine Appearance Urine Dipstick - Clear Urine Color Urine Dipstick - Yellow Urobilinogen Urine Dipstick - Normal 0.2-1 EU/dl pH Urine Dipstick - 5.5 Allergies No Known Medication Allergies Problems Ongoing - Any problem that you are currently receiving treatment for. Anemia Arthritis Asymptomatic microscopic hematuria Depression Diabetes type 2 Erectile dysfunction Erectile dysfunction associated with vasculopathy Glucosuria Headaches Heart attack Heart disease Hyperlipidemia Hypertension Kidney stone Peyronie's disease Proteinuria [employer] Erectile Dysfunction Erectile dysfunction (ED) is the inability to get or keep an erection in order to have sexual intercourse. Erectile dysfunction may include: ? Inability to get an erection. ? Lack of enough hardness of the erection to allow penetration. ? Loss of the erection before sex is finished. What are the causes? This condition may be caused by: ? Certain medicines, such as: ? Pain relievers. ? Antihistamines. ? Antidepressants. ? Blood pressure medicines. ? (more content not included)... Normal [facility] Patient Educationon 08-29-19 23 Patient Education Urology Erectile Dysfunction Erectile dysfunction (ED) is the inability to get or keep an erection in order to have sexual intercourse. Erectile dysfunction may include: ? Inability to get an erection. ? Lack of enough hardness of the erection to allow penetration. ? Loss of the erection before sex is finished. What are the causes? This condition may be caused by: ? Certain medicines, such as: ? Pain relievers. ? Antihistamines. ? Antidepressants. ? Blood pressure medicines. ? Water pills (diuretics). ? Ulcer medicines. ? Muscle relaxants. ? Drugs. ? Excessive drinking. ? Psychological causes, such as: ? Anxiety. ? Depression. ? Sadness. ? Exhaustion. ? Performance fear. ? Stress. ? Physical causes, such as: ? Artery problems. This may include diabetes, smoking, liver disease, or atherosclerosis. ? High blood pressure. ? Hormonal problems, such as low testosterone. ? Obesity. ? Nerve problems. This may include back or pelvic injuries, diabetes mellitus, multiple sclerosis, or Parkinson disease. What are the signs or symptoms? Symptoms of this condition include: ? Inability to get an erection. ? Lack of enough hardness of the erection to allow penetration. ? Loss of the erection before sex is finished. ? Normal erections at some times, but with frequent unsatisfactory episodes. ? Low sexual satisfaction in either partner due to erection problems. ? A curved penis occurring with erection. The curve may cause pain or the penis may be too curved to allow for intercourse. ? Never having nighttime erections. How is this diagnosed? This condition is often diagnosed by: ? Performing a physical exam to find other diseases or specific problems with the penis. ? Asking you detailed questions about the problem. ? Performing blood tests to check for diabetes mellitus or to measure hormone levels. ? Performing other tests to check for underlying health conditions. ? Performing an ultrasound exam to check for scarring. ? Performing a test to check blood flow to the penis. ? Doing a sleep study at home to measure nighttime erections. How is this treated? This condition may be treated by: ? Medicine taken by mouth to help you achieve an erection (oral medicine). ? Hormone replacement therapy to replace low testosterone levels. ? Medicine that is injected into the penis. Your health care provider may instruct you how to give yourself these injections at home. ? Vacuum pump. This is a pump with a ring on it. The pump and ring are placed on the penis and used to create pressure that helps the penis become erect. ? Penile implant surgery. In this procedure, you may receive: ? An inflatable implant. This consists of cylinders, a pump, and a reservoir. The cylinders can be inflated with a fluid that helps to create an erection, and they can be deflated after intercourse. ? A semi-rigid implant. This consists of two silicone rubber rods. The rods provide some rigidity. They are also flexible, so the penis can both curve downward in its normal position and become straight for sexual intercourse. ? Blood vessel surgery, to improve blood flow to the penis. During this procedure, a blood vessel from a different part of the body is placed into the penis to allow blood to flow around (bypass) damaged or blocked blood vessels. ? Lifestyle changes, such as exercising more, losing weight, and quitting smoking. Follow these instructions at home: Medicines ? Take ikoh-fri-nhqihoa and prescription medicines only as told by your health care provider. Do not increase the dosage without first discussing it with your health care provider. ? If you are using self-injections, perform injections as directed by your health care provider. Make sure to avoid any veins that are on the surface of the penis. After giving an injection, apply pressure to the injection site for 5 minutes. General instructions ? Exercise regularly, as directed by your health care provider. Work with your health care provider to lose weight, if needed. ? Do not use any products that contain nicotine or tobacco, such as cigarettes and e-cigarettes. If you need help quitting, ask your health care provider. ? Before using a vacuum pump, read the instructions that come with the pump and discuss any questions with your health care provider. ? Keep all follow-up visits as told by your health care provider. This is important. Contact a health care provider if: ? You feel nauseous. ? You vomit. Get help right away if: ? You are taking oral or injectable medicines and you have an erection that lasts longer than 4 hours. If your health care provider is unavailable, go to the nearest emergency room for evaluation. An erection that lasts much longer than 4 hours can result in permanent damage to your penis. ? You have severe pain in your groin or abdomen. ? You develop redness or severe swelling of your (more content not included)... Normal [facility] Physician Referralon 023 Physician Referral [id number] Normal [facility] Urology Office/Clinic Noteon 08-29-2022 Urology Office/Clinic Note Chief Complaint Pt referred due to Peyronie's disease HPI Staff Pt referred due to Peyronie's disease and ED. Dysuria: denies pain and burning Incomplete bladder emptying: sometimes Hematuria: denies visible blood Frequency: 6-8x a day due to fluid intake Urgency: sometimes Nocturia: 1-2x a night Stream: sometimes hesitancy, medium stream Leaking: sometimes with urgency Post void dripping: denies Wearing pads/ Depends: denies Urge incontinence: denies Stress incontinence: denies Incontinence without Sensory Awareness: denies Abdominal pain: denies Flank pain: bilateral pain Sexual complaints: Peyronie's disease. History of Present Illness Tests reviewed: reviewed UA, referral records. I have reviewed the previous health record information and history for this patient from Dr. Olivares. I have reviewed and verified the staff HPI to be accurate for this encounter. There have been no associated fever, chills, flank pain, or blood in the urine. Denies any urinary infections since last encounter. Review of Systems PHQ Score Initial Depression Screen Score: 2 ROS - Provider Constitutional: denies weight loss, denies hot flashes. Eyes: denies eye problems. Gastrointestinal: denies nausea, denies vomiting. Cardiovascular: denies chest pain or angina. Integumentary: no dryness Musculoskeletal: denies musculoskeletal symptoms. ENMT: denies otolaryngeal symptoms. Respiratory: no shortness of breath. Heme/Lymph: denies easy bleeding tendency, denies easy bruising tendency. Psychiatric: no confusion, no anxiety. Genitourinary: See HPI. Physical Exam Vitals & Measurements HR: 76(Peripheral) BP: 129/88 HT: 72 in HT: 182 cm WT: 76.2 kg WT: 167.64 lb BMI: 23 General Appearance: alert, no distress, well nourished, well developed male. Head: normocephalic . Eyes: normal orbit and globe. ENMT: normal examination of external ears. Chest: Lungs CTA, respirations non labored. Cardiovascular: regular rate and rhythm. Abdomen: soft, non distended, no tenderness, no mass or organomegaly, no hernia. Genitourinary: normal scrotum, normal testes, normal urethra, normal epididymis, normal vas deferens/spermatic cord. Flank Pain: none. Bladder: nonpalpable. Penis: normal shaft, normal glans. No plaque present. Lymph Nodes: unremarkable palpation of the cervical area. Skin: warm, dry, no bruising. Psychiatric: cooperative, affect appropriate for age, normal judgement, euthymic mood. Assessment/Plan 1. Erectile dysfunction associated with vasculopathy (N52.9: Male erectile dysfunction, unspecified) New patient referred by Dr. Olivraes for Peyronie's disease and ED. Pt saw another urologist at [facility] for a vasectomy years ago. . Pt reports since heart stent placement, he has more blood flow to his erections. Can achieve erections. When pt has morning erections, he feels the skin pull like it is going to rip. Explained this is more likely due to increased blood flow since stent placement than bend. Denies pain with erection, just stretching feeling towards the glans. Pt denies pain with recent intercourse. no need for pde5s. 2. Peyronie's disease (N48.6: Induration penis plastica) CC. Pt reports 45?. Pt reports hx of trauma to groin area. Denies bumps/plaque on penis. Pt reports he tried molding on his own for 2 years without any improvement. Explained etiology of Peyronie's disease, typically trauma episode or multiple small traumas. Cannot use ziaflex injections if there is no plaque present. PE: no plaque present. Pt not a candidate for ziaflex. Will refer to subspecialist at [facility]. Pt understands and agrees with plan. 3. Asymptomatic microscopic hematuria (R31.21: Asymptomatic microscopic hematuria) UA today shows small blood. Pt denies gross blood. bernadine check micro 4. Glucosuria (R81: Glycosuria) UA today shows 100mg/dL. Pt is a type I diabetic with end stage renal disease according to referral records. 5. Proteinuria (R80.9: Proteinuria, unspecified) UA today shows >=300mg/dL protein. Follow-up With When Contact Information TRUONG MOLINA, Mickey Tovar, URL [facility] [address] [place] [address]- Additional Instructions: refer to [facility] Patient Education Erectile Dysfunction I, Anila Swain, personally scribed for Dr. Guerin on 08/29/2022 11:35:12. . Documentation recorded by the scribe, Anila Swain, accurately reflects the services(s) I performed and decisions made by me. Authenticated by Dr. Guerin on 08/29/2022 11:39:44. Problem List/Past Medical History Ongoing Anemia Arthritis Asymptomatic microscopic hematuria Depression Diabetes type 2 Erectile dysfunction Erectile dysfunction associated with vasculopathy Glucosuria Headaches Heart attack Heart disease Hyperlipidemia Hypertension Kidney stone Peyronie's disease Proteinuria Historical No qualifying data Proce (more content not included)... Normal [facility] Comment on above: Result Comment: Elec tronically Signed By: Mickey GUERIN MD R\.br\Date and Time Signed: 08/29/22 11:39 EST\.br\Electronically Co-Signed By: Anila Swain\.br\Date and Time Co-Signed: 08/29/22 11:35 EST Albumin [Mass/volume] in Ser um or PlasmaOrdered By: Angel Meíja on 08-17-2022 Albumin [Mass/Vol] 2.6 g/dL 3.2-5.5 [facility] Basic Metabolic Panelon 07-21 Anion gap [Moles/Vol] 10.7 mmol/L Normal 6.0-15.0 [facility] Comment on above: Order Comment: Comme nt Fax Results to PCP Performed By: #### B ROBERTO CBCNO ####[facility] [id number] [place] [address] [facility] Calcium [Mass/Vol] 8.3 mg/dL Normal 8.2-10.2 [facility] Comment on above: Order Comment: Comme nt Fax Results to PCP Result Comment: PERF ORMED BY:[place] [id number] [place] [phone] MEDICAL DIRECTORLEVY GILES M.D. Performed By: #### B ROBERTO CBCNO ####[facility] [id number] [place] [address] [facility] Chloride [Moles/Vol] 107 mmol/L Normal 95-114 [facility] Comment on above: Order Comment: Comme nt Fax Results to PCP Performed By: #### B ROBERTO CBCNO ####[place] [id number] [facility] CO2 [Moles/Vol] 24.3 mmol/L Normal 22.0-30.0 [facility] Comment on above: Order Comment: Comme nt Fax Results to PCP Performed By: #### B ROBERTO CBCNO ####[place] [id number] [facility] Creatinine [Mass/Vol] 3.56 mg/dL High 0.64-1.27 [facility] Comment on above: Order Comment: Comme nt Fax Results to PCP Performed By: #### B ROBERTO CBCNO ####[place] [id number] [facility] Estimated GFR ( Julissa 24 [facility] Comment on above: Order Comment: Comme nt Fax Results to PCP Result Comment: GFR estimated reference range: According to KDOQI guidelines, <60 ml/min/1.73m2 is sufficient to diagnose a patient with chronic kidney disease. Performed By: #### B USAMA MEJIANO ####[place] [id number] [facility] Estimated GFR (Non- Am 19 [facility] Comment on above: Order Comment: Comme nt Fax Results to PCP Performed By: #### B ROBERTO CBCNO ####[place] [id number] [facility] Glucose [Mass/Vol] 204 mg/dL High 70-100 [facility] Comment on above: Order Comment: Comme nt Fax Results to PCP Result Comment: [place] om Glucose Reference Range is dependent on time and content of last meal. Glucose of more than 200 mg/dL in a nonstressed, ambulatory subject supports the diagnosis of Diabetes Mellitus. ADA recommended reference range Performed By: #### B ROBERTO, CBCNO ####[place] [id number] [facility] Potassium [Moles/Vol] 5.0 mmol/L Normal 3.5-5.1 [facility] Comment on above: Order Comment: Comme nt Fax Results to PCP Performed By: #### B EDA MEJIA ####[facility] [id number] Sodium [Moles/Vol] 137 mmol/L Normal 136-146 [facility] Comment on above: Order Comment: Comme nt Fax Results to PCP Performed By: #### B ROBERTO, CBCNO ####[facility] [id number] [address] Urea nitrogen [Mass/Vol] 48 mg/dL High 9-[address] [facility] Comment on above: Order Comment: Comme nt Fax Results to PCP Performed By: #### B USAMA MEJIANO ####[facility] [id number] biopsyOrdered By: Varsha ricardo on 08-17-2022 Transferrin [Mass/Vol] 143 mg/dL 180-380 [facility] Creatinine and Glomerular fi ltration rate.predicted panel (S/P/Bld)Ordered By: Angel Mejía on 08-17-2022 Creatinine [Mass/Vol] 3.58 mg/dL 0.64-1.27 [facility] Erythrocyte distribution wid th Auto (RBC) [Ratio]Ordered By: Angel Mejía on 08-17-2022 Erythrocyte distribution width (RBC) [Ratio] 13.6 % 12.0-14.[address] [facility] Estimated glomerular filtrat ion rate (GFR) non- AmericanOrdered By: Angel Georger on 08-17-2022 GFR/1.73 sq M.predicted among non-blacks MDRD (S/P/Bld) [Vol rate/Area] 19 mL/Min [facility] Ferritinon 08-17-2022 Ferritin [Mass/Vol] 135.6 ng/mL Normal 23.9-336.2 [facility] Comment on above: Order Comment: Reaso n for Exam CKD (chronic kidney disease) stage 4, GFR 15-29 ml/min;Prote Performed By: #### F E and TIBC, URIC, RENAL, MG, ITALO, [id number], PTH ####[address] Ferritin [Mass/volume] in Se rum or PlasmaOrdered By: Angel Mejía on 08-17-2022 Ferritin [Mass/Vol] 135.6 ng/mL 23.9-336.2 [facility] Hematocrit Auto (Bld) [Volum e fraction]Ordered By: Angel Mejía on 08-17-2022 Hematocrit (Bld) [Volume fraction] 28.6 % 38.8-50.[address] [facility] Hemoglobin [Mass/volume] in BloodOrdered By: Angel Mejía on 08-17-2022 Hemoglobin (Bld) [Mass/Vol] 10.0 g/dL 13.0-17.[address] [facility] Hemogram CBC Without Diffon 08-17-2022 Erythrocyte distribution width (RBC) [Ratio] 13.6 % Normal 12.0-14.[address] [facility] Comment on above: Order Comment: Reaso n for Exam CKD (chronic kidney disease) stage 4, GFR 15-29 ml/min;Prote Performed By: #### C BCNO ####[address] Hematocrit (Bld) [Volume fraction] 28.6 % Low 38.8-50.[address] [facility] Comment on above: Order Comment: Reaso n for Exam CKD (chronic kidney disease) stage 4, GFR 15-29 ml/min;Prote Performed By: #### C BCNO ####[address] Hemoglobin (Bld) [Mass/Vol] 10.0 g/dL Low 13.0-17.[address] [facility] Comment on above: Order Comment: Reaso n for Exam CKD (chronic kidney disease) stage 4, GFR 15-29 ml/min;Prote Performed By: #### C BCNO ####[place] [id number] [facility] MCH (RBC) [Entitic mass] 29.8 pg Normal 27.5-35.[address] [facility] Comment on above: Order Comment: Reaso n for Exam CKD (chronic kidney disease) stage 4, GFR 15-29 ml/min;Prote Performed By: #### C BCNO ####[place] [id number] [facility] MCV (RBC) [Entitic vol] 85.3 fL Normal 83.5-101 [facility] Comment on above: Order Comment: Reaso n for Exam CKD (chronic kidney disease) stage 4, GFR 15-29 ml/min;Prote Performed By: #### C BCNO ####[address] Mean Corpuscular HGB Conc 35.0 g/dL Normal 32.5-35.[address] [facility] Comment on above: Order Comment: Reaso n for Exam CKD (chronic kidney disease) stage 4, GFR 15-29 ml/min;Prote Performed By: #### C BCNO ####[address] Platelet mean volume (Bld) [Entitic vol] 8.3 fL Normal 6.6-10.[address] [facility] Comment on above: Order Comment: Reaso n for Exam CKD (chronic kidney disease) stage 4, GFR 15-29 ml/min;Prote Result Comment: PERF ORMED BY:[address] [place] [id number] MEDICAL DIRECTORLEVY GILES M.D. Performed By: #### C BCNO ####[place] [id number] [facility] Platelets (Bld) [#/Vol] 205 10*3/uL Normal 150-[address] [facility] Comment on above: Order Comment: Reaso n for Exam CKD (chronic kidney disease) stage 4, GFR 15-29 ml/min;Prote Performed By: #### C BCNO ####[place] [id number] [facility] RBC (Bld) [#/Vol] 3.35 10*6/uL Low 3.90-5.60 [facility] Comment on above: Order Comment: Reaso n for Exam CKD (chronic kidney disease) stage 4, GFR 15-29 ml/min;Prote Performed By: #### C BCNO ####[address] WBC (Bld) [#/Vol] 10.0 10*3/uL Normal 4.1-10.5 [facility] Comment on above: Order Comment: Reaso n for Exam CKD (chronic kidney disease) stage 4, GFR 15-29 ml/min;Prote Performed By: #### C BCNO ####[address] Erythrocyte distribution width (RBC) [Ratio] 13.7 % Normal 12.0-14.[address] [facility] Comment on above: Order Comment: Comme nt Fax Results to PCP Performed By: #### B EDA MEJIA ####[address] Hematocrit (Bld) [Volume fraction] 29.1 % Low 38.8-50.[address] [facility] Comment on above: Order Comment: Comme nt Fax Results to PCP Performed By: #### B EDA MEJIA ####[address] Hemoglobin (Bld) [Mass/Vol] 10.1 g/dL Low 13.0-17.[address] [facility] Comment on above: Order Comment: Comme nt Fax Results to PCP Performed By: #### B USAMA MEJIANO ####[address] MCH (RBC) [Entitic mass] 29.7 pg Normal 27.5-35.[address] [facility] Comment on above: Order Comment: Comme nt Fax Results to PCP Performed By: #### B EDA MEJIA ####[address] MCV (RBC) [Entitic vol] 86.0 fL Normal 83.5-101 [facility] Comment on above: Order Comment: Comme nt Fax Results to PCP Performed By: #### B MP, CBCNO ####[address] [address] [facility] Mean Corpuscular HGB Conc 34.5 g/dL Normal 32.5-35.[address] [facility] Comment on above: Order Comment: Comme nt Fax Results to PCP Performed By: #### B ROBERTO CBCNO ####[address] [address] [facility] Platelet mean volume (Bld) [Entitic vol] 8.3 fL Normal 6.6-10.[address] [facility] Comment on above: Order Comment: Comme nt Fax Results to PCP Result Comment: PERF ORMED BY:[address] [place], [place] [phone] MEDICAL DIRECTORLEVY GILES M.D. Performed By: #### B USAMA MEJIANO ####[address] [address] [facility] Platelets (Bld) [#/Vol] 207 10*3/uL Normal 150-[address] [facility] Comment on above: Order Comment: Comme nt Fax Results to PCP Performed By: #### B EDA MEJIA ####[address] [address] [facility] RBC (Bld) [#/Vol] 3.39 10*6/uL Low 3.90-5.60 [facility] Comment on above: Order Comment: Comme nt Fax Results to PCP Performed By: #### B ROBERTO CBCNO ####[address] [address] [facility] WBC (Bld) [#/Vol] 9.9 10*3/uL Normal 4.1-10.5 [facility] Comment on above: Order Comment: Comme nt Fax Results to PCP Performed By: #### B ROBERTO CBCNO ####[address] [address] [facility] Iron [Mass/volume] in Serum or PlasmaOrdered By: Angel Mejía on 08-17-2022 Iron [Mass/Vol] 68 ug/dL 40-[address] [facility] Iron and TIBC Profileon 12 0-2021 % Iron Saturation 34.0 % Normal 20-50 [facility] Comment on above: Order Comment: Reaso n for Exam CKD (chronic kidney disease) stage 4, GFR 15-29 ml/min;Prote Performed By: #### F E and TIBC, URIC, RENAL, MG, ITALO, [id number], PTH ####[address] [address] [facility] Iron [Mass/Vol] 68 ug/dL Normal 40-[address] [facility] Comment on above: Order Comment: Reaso n for Exam CKD (chronic kidney disease) stage 4, GFR 15-29 ml/min;Prote Performed By: #### F E and TIBC, URIC, RENAL, MG, ITALO, [id number], PTH ####[address] [address] [facility] Total Iron Binding Capacity 200 ug/dL Low 255-[address] [facility] Comment on above: Order Comment: Reaso n for Exam CKD (chronic kidney disease) stage 4, GFR 15-29 ml/min;Prote Performed By: #### F E and TIBC, URIC, RENAL, MG, ITALO, [id number], PTH ####[address] [address] [facility] Transferrin [Mass/Vol] 143 mg/dL Low 180-380 [facility] Comment on above: Order Comment: Reaso n for Exam CKD (chronic kidney disease) stage 4, GFR 15-29 ml/min;Prote Performed By: #### F E and TIBC, URIC, RENAL, MG, ITALO, [id number], PTH ####[address] [address] [facility] Iron binding capacity [Mass/ volume] in Serum or PlasmaOrdered By: Angel Joyce on 08-17-2022 Iron binding capacity [Mass/Vol] 200 ug/dL 255-[address] [facility] Iron saturation [Mass Fracti on] in Serum or PlasmaOrdered By: Angel Joyce on 08-17-2022 Iron saturation [Mass fraction] 34.0 % 20-[address] [facility] Laboratory - Chemistry and C hemistry - challengeOrdered By: Angel Mejía on 08-17-2022 Magnesium [Mass/Vol] 2.0 mg/dL 1.6-2.6 [facility] Leukocytes [#/volume] correc celena for nucleated erythrocytes in Blood by Automated counOrdered By: Angel Mejía on 08-17-2022 WBC corrected for nucl RBC Auto (Bld) [#/Vol] 10.0 10*3/uL 4.1-10.[address] [facility] MCH Auto (RBC) [Entitic mass ]Ordered By: Angel Mejía on 08-17-2022 MCH (RBC) [Entitic mass] 29.8 pg 27.5-35.[address] [facility] MCHC Auto (RBC) [Mass/Vol]Or dered By: Angel Mejía on 08-17-2022 MCHC (RBC) [Mass/Vol] 35.0 g/dL 32.5-35.6 [facility] MCV Auto (RBC) [Entitic vol] Ordered By: Angel Mejía on 08-17-2022 MCV (RBC) [Entitic vol] 85.3 fL 83.5-101 [facility] Magnesiumon 08-17-2022 Magnesium [Mass/Vol] 2.0 mg/dL Normal 1.6-2.6 [facility] Comment on above: Order Comment: Reaso n for Exam CKD (chronic kidney disease) stage 4, GFR 15-29 ml/min;Prote Performed By: #### F E and TIBC, URIC, RENAL, MG, ITALO, [id number], PTH ####[facility] [id number] No Panel InformationOrdered By: Angle Mejía on 08-17-2022 25-Hydroxy Vitamin D Total 13.1 ng/mL 30-[address] [facility] Comment on above: VITAMIN D STATUS 25( [place])VITAMIN D RANGE (ng/mL) Deficient <20 Insufficient 20 to <30Sufficient 30 to 100Reference: Vanna MF,Chemo NC, Sergey SIMENTAL, et al. Evaluation,treatment, and prevention of vitamin D deficiency; an Endocrine Society clinical practice guideline. JCEM. 2010; 96(7):1911-30. Estimated GFR () 23 mL/Min [facility] Comment on above: GFR estimated refere nce range: According to KDOQI guidelines, <60 ml/min/1.73m2 is sufficient to diagnose a patient with chronic kidney disease. Pharmacy Creatinine Clearance (Chem N/A [facility] Parathyroid Hormone Intacton 08-17-2022 Parathyroid Hormone Intact 253.7 pg/mL High [facility] Comment on above: Order Comment: Reaso n for Exam CKD (chronic kidney disease) stage 4, GFR 15-29 ml/min;Prote Result Comment: PERF ORMED BY:[facility] [place], [place] [phone] MEDICAL DIRECTORLEVY GILES M.D. Performed By: #### F E and TIBC, URIC, RENAL, MG, ITALO, [id number], PTH ####[facility] [place] [address] [place] [address] [facility] Phosphate [Mass/volume] in S gretta or PlasmaOrdered By: Angel Joyce on 08-17-2022 Phosphate [Mass/Vol] 5.0 mg/dL 2.5-4.6 [facility] Platelet mean volume Auto (B ld) [Entitic vol]Ordered By: Angel Joyce on 08-17-2022 Platelet mean volume (Bld) [Entitic vol] 8.3 fL 6.6-10.[address] [facility] Platelets Auto (Bld) [#/Vol] Ordered By: Angel Joyce on 08-17-2022 Platelets (Bld) [#/Vol] 205 10*3/uL 150-[address] [facility] RBC Auto (Bld) [#/Vol]Ordere d By: Angel Joyce on 08-17-2022 RBC (Bld) [#/Vol] 3.35 10*6/uL 3.90-5.60 [facility] Renal Function Panelon 08-17 Albumin [Mass/Vol] 2.6 g/dL Low 3.2-5.5 [facility] Comment on above: Order Comment: Reaso n for Exam CKD (chronic kidney disease) stage 4, GFR 15-29 ml/min;Prote Performed By: #### F E and TIBC, URIC, RENAL, MG, ITALO, [id number], PTH ####[address] [address] [facility] Anion gap [Moles/Vol] 9.9 mmol/L Normal 6.0-15.0 [facility] Comment on above: Order Comment: Reaso n for Exam CKD (chronic kidney disease) stage 4, GFR 15-29 ml/min;Prote Performed By: #### F E and TIBC, URIC, RENAL, MG, ITALO, [id number], PTH ####[address] [address] [facility] Calcium [Mass/Vol] 8.4 mg/dL Normal 8.2-10.2 [facility] Comment on above: Order Comment: Reaso n for Exam CKD (chronic kidney disease) stage 4, GFR 15-29 ml/min;Prote Performed By: #### F E and TIBC, URIC, RENAL, MG, ITALO, [id number], PTH ####[address] [address] [facility] Chloride [Moles/Vol] 107 mmol/L Normal 95-114 [facility] Comment on above: Order Comment: Reaso n for Exam CKD (chronic kidney disease) stage 4, GFR 15-29 ml/min;Prote Performed By: #### F E and TIBC, URIC, RENAL, MG, ITALO, [id number], PTH ####[address] [address] [facility] CO2 [Moles/Vol] 24.1 mmol/L Normal 22.0-30.0 [facility] Comment on above: Order Comment: Reaso n for Exam CKD (chronic kidney disease) stage 4, GFR 15-29 ml/min;Prote Performed By: #### F E and TIBC, URIC, RENAL, MG, ITALO, [id number], PTH ####[address] [address] [facility] Creatinine [Mass/Vol] 3.58 mg/dL High 0.64-1.27 [facility] Comment on above: Order Comment: Reaso n for Exam CKD (chronic kidney disease) stage 4, GFR 15-29 ml/min;Prote Performed By: #### F E and TIBC, URIC, RENAL, MG, ITALO, [id number], PTH ####[address] [place] [address] [facility] Estimated GFR ( Julissa 23 [facility] Comment on above: Order Comment: Reaso n for Exam CKD (chronic kidney disease) stage 4, GFR 15-29 ml/min;Prote Result Comment: GFR estimated reference range: According to KDOQI guidelines, <60 ml/min/1.73m2 is sufficient to diagnose a patient with chronic kidney disease. Performed By: #### F E and TIBC, URIC, RENAL, MG, ITALO, [id number], PTH ####[address] [address] [facility] Estimated GFR (Non- Am 19 [facility] Comment on above: Order Comment: Reaso n for Exam CKD (chronic kidney disease) stage 4, GFR 15-29 ml/min;Prote Performed By: #### F E and TIBC, URIC, RENAL, MG, ITALO, [id number], PTH ####[address] [place] [address] [facility] Glucose [Mass/Vol] 202 mg/dL High 70-100 [facility] Comment on above: Order Comment: Reaso n for Exam CKD (chronic kidney disease) stage 4, GFR 15-29 ml/min;Prote Result Comment: [place] Glucose Reference Range is dependent on time and content of last meal. Glucose of more than 200 mg/dL in a nonstressed, ambulatory subject supports the diagnosis of Diabetes Mellitus. ADA recommended reference range Performed By: #### F E and TIBC, URIC, RENAL, MG, ITALO, [id number], PTH ####[address] [place] [address] [facility] Phosphate [Mass/Vol] 5.0 mg/dL High 2.5-4.6 [facility] Comment on above: Order Comment: Reaso n for Exam CKD (chronic kidney disease) stage 4, GFR 15-29 ml/min;Prote Performed By: #### F E and TIBC, URIC, RENAL, MG, ITALO, [id number], PTH ####[address] [address] [facility] Potassium [Moles/Vol] 5.0 mmol/L Normal 3.5-5.1 [facility] Comment on above: Order Comment: Reaso n for Exam CKD (chronic kidney disease) stage 4, GFR 15-29 ml/min;Prote Performed By: #### F E and TIBC, URIC, RENAL, MG, ITALO, [id number], PTH ####[address] [place] [address] [facility] Sodium [Moles/Vol] 136 mmol/L Normal 136-146 [facility] Comment on above: Order Comment: Reaso n for Exam CKD (chronic kidney disease) stage 4, GFR 15-29 ml/min;Prote Performed By: #### F E and TIBC, URIC, RENAL, MG, ITALO, [id number], PTH ####[address] [address] [facility] Urea nitrogen [Mass/Vol] 47 mg/dL High 9-[address] [facility] Comment on above: Order Comment: Reaso n for Exam CKD (chronic kidney disease) stage 4, GFR 15-29 ml/min;Prote Performed By: #### F E and TIBC, URIC, RENAL, MG, ITALO, [id number], PTH ####[id number] [facility] Serum or plasma anion gap de terminationOrdered By: Angel Mejía on 08-17-2022 Anion gap [Moles/Vol] 9.9 mmol/L 6.0-15.0 [facility] Serum or plasma calcium farida urement (mass/volume)Ordered By: Angel Joyce on 08-17-2022 Calcium [Mass/Vol] 8.4 mg/dL 8.2-10.2 [facility] Serum or plasma chloride trina surement (moles/volume)Ordered By: Angel Georger on 08-17-2022 Chloride [Moles/Vol] 107 mmol/L 95-114 [facility] Serum or plasma glucose farida urement (mass/volume)Ordered By: Angel Mejía on 08-17-2022 Glucose [Mass/Vol] 202 mg/dL 70-100 [facility] Comment on above: ADA recommended refe rence rangeRandom Glucose Reference Range is dependent on time and content of last meal. Glucose of more than 200 mg/dL in a nonstressed, ambulatory subject supports the diagnosis of Diabetes Mellitus. Serum or plasma intact parat hyroid hormone measurement (mass/volume)Ordered By: Angel Mejía on 08-17-2022 Parathyrin.intact [Mass/Vol] 253.7 pg/mL [facility] Serum or plasma potassium me asurement (moles/volume)Ordered By: Angel Mejía on 08-17-2022 Potassium [Moles/Vol] 5.0 mmol/L 3.5-5.1 [facility] Serum or plasma sodium measu rement (moles/volume)Ordered By: Angel Mejía on 08-17-2022 Sodium [Moles/Vol] 136 mmol/L 136-146 [facility] Serum or plasma total carbon dioxide measurement (moles/volume)Ordered By: Angel Mejía on 08-17-2022 CO2 [Moles/Vol] 24.1 mmol/L 22.0-30.0 [facility] Serum or plasma urea nitroge n measurement (mass/volume)Ordered By: Angel Mejía on 08-17-2022 Urea nitrogen [Mass/Vol] 47 mg/dL 05-[address] [facility] Serum or plasma uric acid me asurement (mass/volume)Ordered By: Angel Mejía on 08-17-2022 Urate [Mass/Vol] 6.6 mg/dL 2.6-7.2 [facility] Uric Acidon 08-17-2022 Urate [Mass/Vol] 6.6 mg/dL Normal 2.6-7.2 [facility] Comment on above: Order Comment: Reaso n for Exam CKD (chronic kidney disease) stage 4, GFR 15-29 ml/min;Prote Performed By: #### F E and TIBC, URIC, RENAL, MG, ITALO, [id number], PTH ####[facility] [id number] [place] [address] [facility] Vitamin D 25 Hydroxy Totalon 08-17-2022 Vitamin D 25 Hydroxy Total 13.1 ng/mL Low 30-[address] [facility] Comment on above: Order Comment: Reaso n for Exam CKD (chronic kidney disease) stage 4, GFR 15-29 ml/min;Prote Result Comment: KAMALA MIN D STATUS 25(OH)VITAMIN D RANGE (ng/mL) Deficient <20 Insufficient 20 to <30 Sufficient 30 to 100 Reference: Vanna MF,Chemo NC, Sergey SIMENTAL, et al. Evaluation,treatment, and prevention of vitamin D deficiency; an Endocrine Society clinical practice guideline. JCEM. 2010; 96(7):1911-30. Performed By: #### F E and TIBC, URIC, RENAL, MG, ITALO, [id number], PTH ####[facility] [id number] [place] [address] [facility] Automated erythrocytes count in urine sediment (number/area)Ordered By: Tenzin Ortiz on 08-13-2022 RBC Auto (Urine sed) [#/Area] 10-19 [HPF] 0-[address] [facility] Automated leukocytes count i n urine sediment (number/area)Ordered By: Tenzin Ortiz on 08-13-2022 WBC Auto (Urine sed) [#/Area] 1-2 [HPF] 0-[address] [facility] Bilirubin Test strip Ql (U)O rdered By: Tenzin Ortiz on 08-13-2022 Bilirubin Ql (U) Negative Negative [facility] CT head/brain wo conon 08-13 CT head/brain wo con Normal [facility] Color Auto (U)Ordered By: Jose Luis Ortiz on 08-13-2022 Color (U) Yellow Yellow [facility] Complete Blood Count Auto Di ffon 08-13-2022 Basophils (Bld) [#/Vol] 0.1 10*3/uL Normal 0.0-0.[address] [facility] Comment on above: Result Comment: PERF ORMED BY:[id number] [place] [id number] MEDICAL DIRECTORLEVY GILES M.D. Performed By: #### C KMB, CK, PTT, CMP, HS TROP, PT, CBC ####[address] Basophils/100 WBC (Bld) 1.5 % Normal . [facility] Comment on above: Performed By: #### C KMB, CK, PTT, CMP, HS TROP, PT, CBC ####[address] Eosinophils (Bld) [#/Vol] 0.1 10*3/uL Normal 0.0-0.[address] [facility] Comment on above: Performed By: #### C KMB, CK, PTT, CMP, HS TROP, PT, CBC ####[address] Eosinophils/100 WBC (Bld) 2.7 % Normal . [facility] Comment on above: Performed By: #### C KMB, CK, PTT, CMP, HS TROP, PT, CBC ####[address] Erythrocyte distribution width (RBC) [Ratio] 13.6 % Normal 12.0-14.[address] [facility] Comment on above: Performed By: #### C KMB, CK, PTT, CMP, HS TROP, PT, CBC ####[address] Hematocrit (Bld) [Volume fraction] 23.4 % Low 38.8-50.[address] [facility] Comment on above: Performed By: #### C KMB, CK, PTT, CMP, HS TROP, PT, CBC ####[address] Hemoglobin (Bld) [Mass/Vol] 8.3 g/dL Low 13.0-17.[address] [facility] Comment on above: Performed By: #### C KMB, CK, PTT, CMP, HS TROP, PT, CBC ####[address] Lymphocytes (Bld) [#/Vol] 1.6 10*3/uL Normal 1.00-4.[address] [facility] Comment on above: Performed By: #### C KMB, CK, PTT, CMP, HS TROP, PT, CBC ####[address] Lymphocytes/100 WBC (Bld) 29.2 % Normal . [facility] Comment on above: Performed By: #### C KMB, CK, PTT, CMP, HS TROP, PT, CBC ####[address] MCH (RBC) [Entitic mass] 30.1 pg Normal 27.5-35.[address] [facility] Comment on above: Performed By: #### C KMB, CK, PTT, CMP, HS TROP, PT, CBC ####[address] MCV (RBC) [Entitic vol] 85.1 fL Normal 83.5-101 [facility] Comment on above: Performed By: #### C KMB, CK, PTT, CMP, HS TROP, PT, CBC ####[address] Mean Corpuscular HGB Conc 35.4 g/dL Normal 32.5-35.[address] [facility] Comment on above: Performed By: #### C KMB, CK, PTT, CMP, HS TROP, PT, CBC ####[address] Monocytes (Bld) [#/Vol] 0.5 10*3/uL Normal 0.0-0.[address] [facility] Comment on above: Performed By: #### C KMB, CK, PTT, CMP, HS TROP, PT, CBC ####[address] Monocytes/100 WBC (Bld) 17.67 % Normal 0.00-20.00 [facility] Comment on above: Performed By: #### C KMB, CK, PTT, CMP, HS TROP, PT, CBC ####[address] Monocytes/100 WBC (Bld) 8.9 % Normal . [facility] Comment on above: Performed By: #### C KMB, CK, PTT, CMP, HS TROP, PT, CBC ####[address] Neutrophils (Bld) [#/Vol] 3.1 10*3/uL Normal 1.8-7.[address] [facility] Comment on above: Performed By: #### C KMB, CK, PTT, CMP, HS TROP, PT, CBC ####[address] Neutrophils/100 WBC (Bld) 57.7 % Normal . [facility] Comment on above: Performed By: #### C KMB, CK, PTT, CMP, HS TROP, PT, CBC ####[address] NRBC% 0.1 /100{WBC} Normal 0-0.[address] [facility] Comment on above: Performed By: #### C KMB, CK, PTT, CMP, HS TROP, PT, CBC ####[address] Platelet mean volume (Bld) [Entitic vol] 7.9 fL Normal 6.6-10.[address] [facility] Comment on above: Performed By: #### C KMB, CK, PTT, CMP, HS TROP, PT, CBC ####[address] Platelets (Bld) [#/Vol] 148 10*3/uL Low 150-[address] [facility] Comment on above: Performed By: #### C KMB, CK, PTT, CMP, HS TROP, PT, CBC ####[address] RBC (Bld) [#/Vol] 2.74 10*6/uL Low 3.90-5.60 [facility] Comment on above: Performed By: #### C KMB, CK, PTT, CMP, HS TROP, PT, CBC ####[address] WBC (Bld) [#/Vol] 5.4 10*3/uL Normal 4.1-10.5 [facility] Comment on above: Performed By: #### C KMB, CK, PTT, CMP, HS TROP, PT, CBC ####[address] Comprehensive Metabolic Pane elvin 08-13-2022 Albumin [Mass/Vol] 2.4 g/dL Low 3.2-5.5 [facility] Comment on above: Performed By: #### C KMB, CK, PTT, CMP, HS TROP, PT, CBC ####[address] Albumin/Globulin [Mass ratio] 0.9 {ratio} Normal [facility] Comment on above: Performed By: #### C KMB, CK, PTT, CMP, HS TROP, PT, CBC ####[address] ALP [Catalytic activity/Vol] 68 U/L Normal 32-[address] [facility] Comment on above: Performed By: #### C KMB, CK, PTT, CMP, HS TROP, PT, CBC ####[address] ALT [Catalytic activity/Vol] 11 U/L Normal 10-[address] [facility] Comment on above: Performed By: #### C KMB, CK, PTT, CMP, HS TROP, PT, CBC ####[address] Anion gap [Moles/Vol] 12.3 mmol/L Normal 6.0-15.0 [facility] Comment on above: Performed By: #### C KMB, CK, PTT, CMP, HS TROP, PT, CBC ####[id number] [facility] AST [Catalytic activity/Vol] 12 U/L Normal 10-[address] [facility] Comment on above: Performed By: #### C KMB, CK, PTT, CMP, HS TROP, PT, CBC ####[address] [id number] [facility] Bilirubin [Mass/Vol] 0.4 mg/dL Normal 0.3-1.2 [facility] Comment on above: Performed By: #### C KMB, CK, PTT, CMP, HS TROP, PT, CBC ####[address] Calcium [Mass/Vol] 7.7 mg/dL Low 8.2-10.2 [facility] Comment on above: Performed By: #### C KMB, CK, PTT, CMP, HS TROP, PT, CBC ####[id number] [facility] Chloride [Moles/Vol] 107 mmol/L Normal 95-114 [facility] Comment on above: Performed By: #### C KMB, CK, PTT, CMP, HS TROP, PT, CBC ####[id number] [facility] CO2 [Moles/Vol] 20.9 mmol/L Low 22.0-30.0 [facility] Comment on above: Performed By: #### C KMB, CK, PTT, CMP, HS TROP, PT, CBC ####[id number] [facility] Creatinine [Mass/Vol] 3.85 mg/dL High 0.64-1.27 [facility] Comment on above: Performed By: #### C KMB, CK, PTT, CMP, HS TROP, PT, CBC ####[id number] [facility] Creatinine Clr Calc Pharmacy 28.[address] [facility] Comment on above: Result Comment: PERF ORMED BY:[address], [place] [phone] MEDICAL DIRECTORLEVY GILES M.D. Performed By: #### C KMB, CK, PTT, CMP, HS TROP, PT, CBC ####[address] [place] [id number] [facility] Estimated GFR ( Julissa 21 [facility] Comment on above: Result Comment: GFR estimated reference range: According to KDOQI guidelines, <60 ml/min/1.73m2 is sufficient to diagnose a patient with chronic kidney disease. Performed By: #### C KMB, CK, PTT, CMP, HS TROP, PT, CBC ####[address] [place] [id number] [facility] Estimated GFR (Non- Am 18 [facility] Comment on above: Performed By: #### C KMB, CK, PTT, CMP, HS TROP, PT, CBC ####[id number] [facility] Globulin (S) [Mass/Vol] 2.8 g/dL Normal [facility] Comment on above: Performed By: #### C KMB, CK, PTT, CMP, HS TROP, PT, CBC ####[address] [id number] [facility] Glucose [Mass/Vol] 198 mg/dL High 70-100 [facility] Comment on above: Result Comment: [place] Glucose Reference Range is dependent on time and content of last meal. Glucose of more than 200 mg/dL in a nonstressed, ambulatory subject supports the diagnosis of Diabetes Mellitus. ADA recommended reference range Performed By: #### C KMB, CK, PTT, CMP, HS TROP, PT, CBC ####[address] [address] [facility] Potassium [Moles/Vol] 4.2 mmol/L Normal 3.5-5.1 [facility] Comment on above: Performed By: #### C KMB, CK, PTT, CMP, HS TROP, PT, CBC ####[address] [id number] [facility] Protein [Mass/Vol] 5.2 g/dL Low 6.1-7.9 [facility] Comment on above: Performed By: #### C KMB, CK, PTT, CMP, HS TROP, PT, CBC ####[address] Sodium [Moles/Vol] 136 mmol/L Normal 136-146 [facility] Comment on above: Performed By: #### C KMB, CK, PTT, CMP, HS TROP, PT, CBC ####[address] Urea nitrogen [Mass/Vol] 45 mg/dL High 9-[address] [facility] Comment on above: Performed By: #### C KMB, CK, PTT, CMP, HS TROP, PT, CBC ####[address] Creatine Kinaseon 08-13-2022 CK [Catalytic activity/Vol] 236 U/L Normal 22-[address] [facility] Comment on above: Performed By: #### C KMB, CK, PTT, CMP, HS TROP, PT, CBC ####[address] Creatinine Kinase MBon 08-13 CK.MB [Mass/Vol] 6.6 ng/mL High 0.6-6.3 [facility] Comment on above: Performed By: #### C KMB, CK, PTT, CMP, HS TROP, PT, CBC ####[address] CKMB Relative Index 2.7 % High 0.00-2.50 [facility] Comment on above: Performed By: #### C KMB, CK, PTT, CMP, HS TROP, PT, CBC ####[address] Dipstick and Microscopicon 1 10-14-2021 Appearance (U) Clear Normal Clear [facility] Comment on above: Order Comment: Name Collection Type:: Clean-Voided Midstream Performed By: #### A DDONUAPLUS ####[address] [place] [address] [facility] Bacteria,Urine None Seen Normal None Seen [facility] Comment on above: Order Comment: Name Collection Type:: Clean-Voided Midstream Performed By: #### A DDONUAPLUS ####[address] [place] [address] [place] Bilirubin,Urine Negative Normal Negative [facility] Comment on above: Order Comment: Name Collection Type:: Clean-Voided Midstream Performed By: #### A DDONUAPLUS ####[address] [address] [facility] Color (U) Yellow Normal Yellow [facility] Comment on above: Order Comment: Name Collection Type:: Clean-Voided Midstream Performed By: #### A DDONUAPLUS ####[address] [address] [facility] Glucose Ql (U) 250 mg/dL High Normal [facility] Comment on above: Order Comment: Name Collection Type:: Clean-Voided Midstream Performed By: #### A DDONUAPLUS ####[address] [address] [place] Hyaline Casts,Urine 0-8 Normal 0-8 [facility] Comment on above: Order Comment: Name Collection Type:: Clean-Voided Midstream Result Comment: PERF ORMED BY:[address] [place], [place] [id number] MEDICAL LEONELA GILES M.D. Performed By: #### A DDONUAPLUS ####[address] [address] [place] Ketones Ql (U) Negative Normal Negative [facility] Comment on above: Order Comment: Name Collection Type:: Clean-Voided Midstream Performed By: #### A DDONUAPLUS ####[address] [address] [facility] Leukocyte esterase Test strip Ql (U) Negative Normal Negative [facility] Comment on above: Order Comment: Name Collection Type:: Clean-Voided Midstream Performed By: #### A DDONUAPLUS ####[address] [address] [place] Nitrite,Urine Negative Normal Negative [facility] Comment on above: Order Comment: Name Collection Type:: Clean-Voided Midstream Performed By: #### A DDONUAPLUS ####[address] [address] [facility] Occult Blood,Urine 1+ High Negative [facility] Comment on above: Order Comment: Name Collection Type:: Clean-Voided Midstream Result Comment: PERF ORMED BY:[address] [place], [place] [phone] MEDICAL DIRECTORLEVY GILES M.D. Performed By: #### A DDONUAPLUS ####[address] [address] [facility] pH (U) 5.5 [pH] Normal 5.0-9.[address] [facility] Comment on above: Order Comment: Name Collection Type:: Clean-Voided Midstream Performed By: #### A DDONUAPLUS ####[address] [address] [facility] Protein (U) [Mass/Vol] 300 mg/dL High Negative [facility] Comment on above: Order Comment: Name Collection Type:: Clean-Voided Midstream Performed By: #### A DDONUAPLUS ####[address] [address] [facility] RBC,Urine 10-19 High 0-[address] [facility] Comment on above: Order Comment: Name Collection Type:: Clean-Voided Midstream Performed By: #### A DDONUAPLUS ####[address] [address] [facility] Specificy [place],Urine 1.011 Normal 1.00 1-1.[address] [facility] Comment on above: Order Comment: Name Collection Type:: Clean-Voided Midstream Performed By: #### A DDONUAPLUS ####[address] [address] [facility] Squamous Epithelial Cell,Urine 0-1 Normal 0-[address] [facility] Comment on above: Order Comment: Name Collection Type:: Clean-Voided Midstream Performed By: #### A DDONUAPLUS ####[facility] [id number] [place] [address] [facility] Urobilinogen,Urine Normal Normal Normal [facility] Comment on above: Order Comment: Name Collection Type:: Clean-Voided Midstream Performed By: #### A DDONUAPLUS ####[facility] [id number] [place] [address] [facility] WBC,Urine 1-2 Normal 0-[address] [facility] Comment on above: Order Comment: Name Collection Type:: Clean-Voided Midstream Performed By: #### A DDONUAPLUS ####[address] [place] [id number] [facility] ECG 12 lead ECGon 08-13-2022 ECG 12 lead ECG Normal [facility] Glucose Glucometer (BldC) [M ass/Vol]Ordered By: Law Cano on 08-13-2022 Glucose [Mass/Vol] 276 mg/dL [facility] Comment on above: Random Glucose Refer ence Range is dependent on time and content of last meal. Glucose of more than 200 mg/dL in a nonstressed, ambulatory subject supports the diagnosis of Diabetes Mellitus. Glucose Poct Glucometerson 1 10-14-2021 Glucose [Mass/Vol] 276 mg/dL Normal [facility] Comment on above: Result Comment: [facility] Glucose Reference Range is dependent on time and content of last meal. Glucose of more than 200 mg/dL in a nonstressed, ambulatory subject supports the diagnosis of Diabetes Mellitus.PERFORMED BY:[id number] [place], [place] [id number] MEDICAL DIRECTORLEVY GILES M.D. Performed By: #### G ASHLEY ####Point of Care testing, Glucose [Mass/Vol] 156 mg/dL Normal [facility] Comment on above: Result Comment: [facility] Glucose Reference Range is dependent on time and content of last meal. Glucose of more than 200 mg/dL in a nonstressed, ambulatory subject supports the diagnosis of Diabetes Mellitus.PERFORMED BY:[address] [place], [place] [phone] MEDICAL DIRECTORLEVY GILES M.D. Performed By: #### G ASHLYE ####Point of Care testing, Ketones Auto test strip (U) [Mass/Vol]Ordered By: Tenzin Ortiz on 08-13-2022 Ketones (U) [Mass/Vol] Negative Negative [facility] - Chemistry and C hemistry - challengeOrdered By: Isidoro Mesa on 08-13-2022 Magnesium [Mass/Vol] 1.9 mg/dL 1.6-2.6 [facility] - UrinalysisOrder ed By: Tenzin Ortiz on 08-13-2022 Hyaline casts LM Ql (Urine sed) 0-8 [LPF] 0-[address] [facility] Magnesiumon 08-13-2022 Magnesium [Mass/Vol] 1.9 mg/dL Normal 1.6-2.6 [facility] Comment on above: Result Comment: PERF ORMED BY:[address] [place] [phone] MEDICAL DIRECTORLEVY GILES M.D. Performed By: #### H S TROP, MG ####[address] [place] [address] [facility] Nitrite Test strip Ql (U)Ord ered By: Tenzin Ortiz on 08-13-2022 Nitrite Ql (U) Negative Negative [facility] Partial Thromboplastin Timeo n 08-13-2022 aPTT Coag (Bld) [Time] 36.3 s Normal 25.1-36.5 [facility] Comment on above: Result Comment: PERF ORMED BY:[address] [place], [place] [phone] MEDICAL LEONELA GILES M.D. Performed By: #### C KMB, CK, PTT, CMP, HS TROP, PT, CBC ####[address] [address] [facility] Protein Auto test strip (U) [Mass/Vol]Ordered By: Tenzin Ortiz on 08-13-2022 Protein (U) [Mass/Vol] 300 mg/dL Negative [facility] Prothrombin Time INRon 08-13 INR Coag (PPP) [Relative time] 1.1 {INR} Normal [facility] Comment on above: Result Comment: INR Therapeutic Range A) Pre- and Peroperative OAT started two weeks before surgery. NOT HIP SURGERY: 1.5 - 2.5 HIP SURGERY: 2 - 3 B) Primary and secondary prevention of venous THROMBOSIS: 2 - 3 C) Active venous thrombosis, pulmonary embolism and prevention of recurrent venous thrombosis: 2 - 3 D) Prevention of arterial thromboembolism including patients with mechanical heart valves: 3 - 4.5 Performed By: #### C KMB, CK, PTT, CMP, HS TROP, PT, CBC ####[address] [place] [address] [facility] PT Coag (PPP) [Time] 12.0 s Normal 9.0-12.9 [facility] Comment on above: Performed By: #### C KMB, CK, PTT, CMP, HS TROP, PT, CBC ####[address] [place] [address] [facility] Specific gravity Auto test s trip (U) [Rel density]Ordered By: Tenzin Ortiz on 08-13-2022 Specific gravity (U) [Rel density] 1.011 1.001-1.[address] [facility] Squamous epithelial cells de tection in urine sediment by light microscopyOrdered By: Tenzin Ortiz on 08-13-2022 Epithelial cells.squamous LM Ql (Urine sed) 0-1 [HPF] 0-[address] [facility] Troponin I High Sensitivityo n 08-13-2022 Troponin I High Sensitivity 31 pg/mL High 0-[address] [facility] Comment on above: Result Comment: PERF ORMED BY:[address] [place], [place] [phone] MEDICAL DIRECTORLEVY GILES M.D. Performed By: #### H S TROP, MG ####[address] [address] [facility] Troponin I High Sensitivity 24 pg/mL High 0-[address] [facility] Comment on above: Result Comment: PERF ORMED BY:[facility] [place], [place] [id number] MEDICAL DIRECTORLEVY GILES M.D. Performed By: #### C KMB, CK, PTT, CMP, HS TROP, PT, CBC ####[facility] [id number] [facility] Troponin I.cardiac [Mass/vol ume] in Serum or Plasma by High sensitivity methodOrdered By: Isidoro Mesa on 08-13-2022 Troponin I.cardiac High sensitivity method [Mass/Vol] 31 pg/mL 0-[address] [facility] Urine bacteria detection by automated methodOrdered By: Tenzin Ortiz on 08-13-2022 Bacteria Auto Ql (U) None seen None Seen [facility] Urine clarity by refractomet ry automatedOrdered By: Tenzin Ortiz on 08-13-2022 Clarity Refractometry automated (U) Clear Clear [facility] Urine glucose measurement by automated test strip (mass/volume)Ordered By: Tenzin Ortiz on 08-13-2022 Glucose Auto test strip (U) [Mass/Vol] 250 mg/dL Normal [facility] Urine hemoglobin detection b y automated test stripOrdered By: Tenzin Ortiz on 08-13-2022 Hemoglobin Auto test strip Ql (U) 1+ Negative [facility] Urine leukocyte esterase det ection by automated test stripOrdered By: Tenzin Ortiz on 08-13-2022 Leukocyte esterase Auto test strip Ql (U) Negative Negative [facility] Urobilinogen Auto test strip (U) [Mass/Vol]Ordered By: Tenzin Ortiz on 08-13-2022 Urobilinogen (U) [Mass/Vol] Normal mg/dL Normal [facility] XR chest 1V portableon 08-13 XR chest 1V portable Normal [facility] pH Auto test strip (U)Ordere d By: Tenzin Ortiz on 08-13-2022 pH (U) 5.5 [pH] 5.0-9.[address] [facility] Activated partial thrombopla stin time (aPTT) in platelet poor plasma by coagulation aOrdered By: Tenzin Ortiz on 08-12-2022 aPTT Coag (PPP) [Time] 36.3 s 25.1-36.5 [facility] Albumin [Mass/volume] in Ser um or PlasmaOrdered By: Tenzin Ortiz on 08-12-2022 Albumin [Mass/Vol] 2.4 g/dL 3.2-5.5 [facility] Basophils Auto (Bld) [#/Vol] Ordered By: Tenzin Ortiz on 08-12-2022 Basophils (Bld) [#/Vol] 0.1 10*3/uL 0.0-0.[address] [facility] Basophils/100 WBC Auto (Bld) Ordered By: Tenzin Ortiz on 08-12-2022 Basophils/100 WBC (Bld) 1.5 % . [facility] Creatine kinase [Enzymatic a ctivity/volume] in Serum or PlasmaOrdered By: Tenzin Ortiz on 08-12-2022 CK [Catalytic activity/Vol] 236 U/L 22-[address] [facility] Creatinine and Glomerular fi ltration rate.predicted panel (S/P/Bld)Ordered By: Tenzin Ortiz on 08-12-2022 Creatinine [Mass/Vol] 3.85 mg/dL 0.64-1.27 [facility] Eosinophils Auto (Bld) [#/Vo l]Ordered By: Tenzin Ortiz on 08-12-2022 Eosinophils (Bld) [#/Vol] 0.1 10*3/uL 0.0-0.[address] [facility] Eosinophils/100 WBC Auto (Bl d)Ordered By: Tenzin Ortiz on 08-12-2022 Eosinophils/100 WBC (Bld) 2.7 % . [facility] Erythrocyte distribution wid th Auto (RBC) [Ratio]Ordered By: Tenzin Ortiz on 08-12-2022 Erythrocyte distribution width (RBC) [Ratio] 13.6 % 12.0-14.[address] [facility] Estimated glomerular filtrat ion rate (GFR) non- AmericanOrdered By: Tenzin Ortiz on 08-12-2022 GFR/1.73 sq M.predicted among non-blacks MDRD (S/P/Bld) [Vol rate/Area] 18 mL/Min [facility] Globulin Calc (S) [Mass/Vol] Ordered By: Tenzin Ortiz on 08-12-2022 Globulin (S) [Mass/Vol] 2.8 g/dL [facility] Hematocrit Auto (Bld) [Volum e fraction]Ordered By: Tenzin Ortiz on 08-12-2022 Hematocrit (Bld) [Volume fraction] 23.4 % 38.8-50.[address] [facility] Hemoglobin [Mass/volume] in BloodOrdered By: Tenzin Ortiz on 08-12-2022 Hemoglobin (Bld) [Mass/Vol] 8.3 g/dL 13.0-17.[address] [facility] Laboratory - CoagulationOrde red By: Tenzin Ortiz on 08-12-2022 PT Coag (PPP) [Time] 12.0 s 9.0-12.9 [facility] Leukocytes [#/volume] correc celena for nucleated erythrocytes in Blood by Automated counOrdered By: Tenzin Ortiz on 08-12-2022 WBC corrected for nucl RBC Auto (Bld) [#/Vol] 5.4 10*3/uL 4.1-10.[address] [facility] Lymphocytes Auto (Bld) [#/Vo l]Ordered By: Tenzin Ortiz on 08-12-2022 Lymphocytes (Bld) [#/Vol] 1.6 10*3/uL 1.00-4.[address] [facility] Lymphocytes/100 WBC Auto (Bl d)Ordered By: Tenzin Ortiz on 08-12-2022 Lymphocytes/100 WBC (Bld) 29.2 % . [facility] MCH Auto (RBC) [Entitic mass ]Ordered By: Tenzin Ortiz on 08-12-2022 MCH (RBC) [Entitic mass] 30.1 pg 27.5-35.[address] [facility] MCHC Auto (RBC) [Mass/Vol]Or dered By: Tenzin Ortiz on 08-12-2022 MCHC (RBC) [Mass/Vol] 35.4 g/dL 32.5-35.6 [facility] MCV Auto (RBC) [Entitic vol] Ordered By: Tenzin Ortiz on 08-12-2022 MCV (RBC) [Entitic vol] 85.1 fL 83.5-101 [facility] Monocyte distribution width [Entitic volume] in Blood by AutomatedOrdered By: Tenzin Ortiz on 08-12-2022 Monocyte distribution width Auto (Bld) [Entitic vol] 17.67 % 0.00-20.[address] [facility] Monocytes Auto (Bld) [#/Vol] Ordered By: Tenzin Ortiz on 08-12-2022 Monocytes (Bld) [#/Vol] 0.5 10*3/uL 0.0-0.[address] [facility] Monocytes/100 WBC Auto (Bld) Ordered By: Tenzin Ortiz on 08-12-2022 Monocytes/100 WBC (Bld) 8.9 % . [facility] Neutrophils Auto (Bld) [#/Vo l]Ordered By: Tenzin Ortiz on 08-12-2022 Neutrophils (Bld) [#/Vol] 3.1 10*3/uL 1.8-7.[address] [facility] Neutrophils/100 WBC Auto (Bl d)Ordered By: Tenzin Ortiz on 08-12-2022 Neutrophils/100 WBC (Bld) 57.7 % . [facility] No Panel InformationOrdered By: Tenzin Ortiz on 08-12-2022 Estimated GFR () 21 mL/Min [facility] Comment on above: GFR estimated refere nce range: According to KDOQI guidelines, <60 ml/min/1.73m2 is sufficient to diagnose a patient with chronic kidney disease. Pharmacy Creatinine Clearance (Chem 28.[address] [facility] Nucleated erythrocytes [Pres ence] in Blood by Automated countOrdered By: Tenzin Ortiz on 08-12-2022 Nucleated RBC Auto Ql (Bld) 0.1 /100{WBC} 0-0.[address] [facility] Platelet mean volume Auto (B ld) [Entitic vol]Ordered By: Tenzin Ortiz on 08-12-2022 Platelet mean volume (Bld) [Entitic vol] 7.9 fL 6.6-10.[address] [facility] Platelet poor plasma interna tional normalized ratio (INR) by coagulation assay (relatOrdered By: Tenzin Ortiz on 08-12-2022 INR Coag (PPP) [Relative time] 1.1 {INR} [facility] Comment on above: INR Therapeutic Rang e A) Pre- and Peroperative OAT started two weeks before surgery. NOT HIP SURGERY: 1.5 - 2.5 HIP SURGERY: 2 - 3B) Primary and secondary prevention of venous THROMBOSIS: 2 - 3C) Active venous thrombosis, pulmonary embolismand prevention of recurrent venous thrombosis: 2 - 3D) Prevention of arterial thromboembolismincluding patients with mechanical heart valves: 3 - 4.5 Platelets Auto (Bld) [#/Vol] Ordered By: Tenzin Ortiz on 08-12-2022 Platelets (Bld) [#/Vol] 148 10*3/uL 150-[address] [facility] Protein [Mass/volume] in Ser um or PlasmaOrdered By: Tenzin Ortiz on 08-12-2022 Protein [Mass/Vol] 5.2 g/dL 6.1-7.9 [facility] RBC Auto (Bld) [#/Vol]Ordere d By: Tenzin Ortiz on 08-12-2022 RBC (Bld) [#/Vol] 2.74 10*6/uL 3.90-5.60 [facility] Serum or plasma alanine matthews otransferase measurement without P-5'-P (enzymatic activiOrdered By: Tenzin Ortiz on 08-12-2022 ALT No additional P-5'-P [Catalytic activity/Vol] 11 U/L [address] [facility] Serum or plasma albumin/glob ulin mass ratioOrdered By: Tenzin Ortiz on 08-12-2022 Albumin/Globulin [Mass ratio] 0.9 {ratio} [facility] Serum or plasma alkaline harriett sphatase measurement (enzymatic activity/volume)Ordered By: Tenzin Ortiz on 08-12-2022 ALP [Catalytic activity/Vol] 68 U/L 32-[address] [facility] Serum or plasma anion gap de terminationOrdered By: Tenzin Ortiz on 08-12-2022 Anion gap [Moles/Vol] 12.3 mmol/L 6.0-15.0 [facility] Serum or plasma aspartate am inotransferase measurement (enzymatic activity/volume)Ordered By: Tenzin Ortiz on 08-12-2022 AST [Catalytic activity/Vol] 12 U/L [address] [facility] Serum or plasma calcium farida urement (mass/volume)Ordered By: Tenzin Ortiz on 08-12-2022 Calcium [Mass/Vol] 7.7 mg/dL 8.2-10.2 [facility] Serum or plasma chloride trina surement (moles/volume)Ordered By: Tenzin Ortiz on 08-12-2022 Chloride [Moles/Vol] 107 mmol/L 95-114 [facility] Serum or plasma creatine kin ase MB (CKMB)/total creatine kinase (CK) ratio by calculaOrdered By: Tenzin Ortiz on 08-12-2022 CK.MB Calc [Catalytic fraction] 2.7 % 0.00-2.[address] [facility] Serum or plasma creatine kin ase MB measurement (mass/volume)Ordered By: Tenzin Ortiz on 08-12-2022 CK.MB [Mass/Vol] 6.6 ng/mL 0.6-6.3 [facility] Serum or plasma glucose farida urement (mass/volume)Ordered By: Tenzin Ortiz on 08-12-2022 Glucose [Mass/Vol] 198 mg/dL 70-100 [facility] Comment on above: ADA recommended refe rence rangeRandom Glucose Reference Range is dependent on time and content of last meal. Glucose of more than 200 mg/dL in a nonstressed, ambulatory subject supports the diagnosis of Diabetes Mellitus. Serum or plasma potassium me asurement (moles/volume)Ordered By: Tenzin Ortiz on 08-12-2022 Potassium [Moles/Vol] 4.2 mmol/L 3.5-5.1 [facility] Serum or plasma sodium measu rement (moles/volume)Ordered By: Tenzin Ortiz on 08-12-2022 Sodium [Moles/Vol] 136 mmol/L 136-146 [facility] Serum or plasma total biliru bin measurement (mass/volume)Ordered By: Tenzin Ortiz on 08-12-2022 Bilirubin [Mass/Vol] 0.4 mg/dL 0.3-1.2 [facility] Serum or plasma total carbon dioxide measurement (moles/volume)Ordered By: Tenzin Ortiz on 08-12-2022 CO2 [Moles/Vol] 20.9 mmol/L 22.0-30.0 [facility] Serum or plasma urea nitroge n measurement (mass/volume)Ordered By: Tenzin Ortiz on 08-12-2022 Urea nitrogen [Mass/Vol] 45 mg/dL 9-[address] [facility] Troponin I.cardiac [Mass/vol ume] in Serum or Plasma by High sensitivity methodOrdered By: Tenzin Ortiz on 08-12-2022 Troponin I.cardiac High sensitivity method [Mass/Vol] 24 pg/mL 0-[address] [facility] WBC Auto (Bld) [#/Vol]Ordere d By: Tenzin Ortiz on 08-12-2022 WBC (Bld) [#/Vol] 5.4 10*3/uL 4.1-10.5 [facility] CNPNon 08-02-2022 CNPN Telephone (TXCTGL) -- YOEL WERNER ([id number]) 1985 M Date Time Provider Department 08/02/22 SARA WILLIS TXCTGL During your visit today, we recorded the following information about you: Sara Willis 08/02/2022 10:42 AM Signed Returned call to patient regarding kidney transplant, he is currently smoking cigarettes about 1/2 pack per day. Advised patient once he is nicotine free for 30-days to contact our office. Closing referral at this time and patient verbalized understanding. Sara Willis Allergies As of Date: 08/02/2022 (No Known Allergies) Date Reviewed: 10/02/2021 Reviewed by: Clarke Allen MD - Fully Assessed Reason for Visit: Returning Patient's Call [408] Prescriptions as of 08/02/2022 - amLODIPine (NORVASC) 5 mg tablet - atorvastatin (LIPITOR) 40 mg tablet - escitalopram oxalate (LEXAPRO) 10 mg tablet - insulin glargine (LANTUS SOLOSTAR, BASAGLAR KWIKPEN) 100 unit/mL (3 mL) Insulin Glargine (Basaglar Kwikpen U-100 Insulin) 100 unit/mL (3 mL) insulin pen Active 15 UNIT SUBCUT Daily September 11, 2021 10:23pm - losartan (COZAAR) 25 mg tablet - metFORMIN ER (GLUCOPHAGE XR) 500 mg 24 hr tablet Metformin Active 500 MG PO Twice daily September 11, 2021 10:23pm - ondansetron orally disintegrating (ZOFRAN ODT) 4 mg disintegrating tablet Take 4 mg by mouth every 6 hours as needed. - dorzolamide HCl/PF (DORZOLAMIDE, PF,) 2 % drop Use 1 Drop in eyes three times daily. - brimonidine (ALPHAGAN) 0.2 % ophthalmic solution Use 1 Drop in the left eye three times daily for 7 days. - timolol maleate (TIMOPTIC) 0.5 % ophthalmic solution Use 1 Drop in the left eye twice daily. Problem List As Of Date: 08/02/2022 (None) Encounter Status:Closed by SARA WILLIS on 08/02/22 Normal [facility] Albumin [Mass/volume] in Ser um or PlasmaOrdered By: Cipriano Stiles on 07-19-2022 Albumin [Mass/Vol] 2.6 g/dL 3.2-5.5 [facility] C reactive protein [Mass/vol ume] in Serum or Plasma by High sensitivity methodOrdered By: Denilson Gomez on 07-19-2022 CRP High sensitivity method [Mass/Vol] 0.7 mg/L [facility] Comment on above: Cardiovascular Risk Classification (AHA/CDC)hsCRP < 1.0 mg/l low relative risk for CVDhsCRP 1.0-3.0 mg/l average relative risk for CVDhsCRP > 3.0 mg/l high relative risk for CVDhsCRP > 7.5 mg/l active inflammation*Two results two weeks apart and averaged provide a morestable estimate of hsCRP level.*hsCRP levels > 7.5 mg/l may suggest infection that canlimit the use of this marker for estimation of CVD risk. C-Peptideon 07-19-2022 C-Peptide 1.8 ng/mL Normal 1.1-4.[address] [facility] Comment on above: Result Comment: C-Pe ptide reference interval is for fasting patients. Performed at: - [facility] [id number] Stemhole Borer: Pablito Alexander PhD, Phone: [phone] BY:[facility] [place], [place] [id number] MEDICAL DIRECTORLEVY GILES M.D. Performed By: #### U RMACRERAT, RENAL, [id number] ####[facility] [id number] [place] [address] [facility]#### CPEP ####[facility] , Cholesterol [Mass/volume] in Serum or PlasmaOrdered By: Denilson Gomez on 07-19-2022 Cholesterol [Mass/Vol] 164 mg/dL 140-200 [facility] Comment on above: Chol less than 200 m g/dl low riskChol 201-239 mg/dl borderline riskChol 240 mg/dl and greater high risk Cholesterol in LDL Calc [Mas s/Vol]Ordered By: Denilson Gomez on 07-19-2022 Cholesterol in LDL [Mass/Vol] 111 mg/dL 0-[address] [facility] Comment on above: LDL ATP III CLASSIFI CATIONLDL less than 100 mg/dL OptimalLDL 100-129 mg/dL Near or above optimalLDL 130-159 mg/dL Borderline highLDL 160-189 mg/dL HighLDL greater than 189 mg/dL Very high Cholesterol in VLDL Calc [Ma ss/Vol]Ordered By: Denilson Gomez on 07-19-2022 Cholesterol in VLDL [Mass/Vol] 16 mg/dL [facility] Creatinine [Mass/volume] in UrineOrdered By: Cipriano Stiles on 07-19-2022 Creatinine (U) [Mass/Vol] 76.5 mg/dL [facility] Comment on above: No reference range e stablished Creatinine and Glomerular fi ltration rate.predicted panel (S/P/Bld)Ordered By: Cipriano Stiles on 07-19-2022 Creatinine [Mass/Vol] 3.21 mg/dL 0.64-1.27 [facility] ECH echo transthoracicon ECH echo transthoracic Normal [facility] Estimated glomerular filtrat ion rate (GFR) non- AmericanOrdered By: Cipriano Stiles on 07-19-2022 GFR/1.73 sq M.predicted among non-blacks MDRD (S/P/Bld) [Vol rate/Area] 22 mL/Min [facility] High Sensitive CRPon 022 High Sensitive CRP 0.7 mg/L Normal [facility] Comment on above: Result Comment: Card iovascular Risk Classification (AHA/CDC) hsCRP < 1.0 mg/l low relative risk for CVD hsCRP 1.0-3.0 mg/l average relative risk for CVD hsCRP > 3.0 mg/l high relative risk for CVD hsCRP > 7.5 mg/l active inflammation* Two results two weeks apart and averaged provide a more stable estimate of hsCRP level. *hsCRP levels > 7.5 mg/l may suggest infection that can limit the use of this marker for estimation of CVD risk.PERFORMED BY:[place] [address] [address] [place], [place] [id number] MEDICAL DIRECTORLEVY GILES M.D. Performed By: #### H SCRP ####[facility] [id number] [place] [address] [facility] Laboratory - Chemistry and C hemistry - challengeon 07-19-2022 Cholesterol [Mass/Vol] 164\S\164 Normal 140-200 [facility] marianne 250 DO Work Phone: Comment on above: Chol less than 200 m g/dl low risk Chol 201-239 mg/dl borderline risk Chol 240 mg/dl and greater high risk Cholesterol in LDL [Mass/Vol] 111\S\111 above high threshold 0-100 [facility] marianne 250 DO Work Phone: Comment on above: LDL ATP III CLASSIFI CATION LDL less than 100 mg/dL Optimal LDL 100-129 mg/dL Near or above optimal LDL 130-159 mg/dL Borderline high LDL 160-189 mg/dL High LDL greater than 189 mg/dL Very high Lipid Panelon 07-19-2022 Cholesterol [Mass/Vol] 164 mg/dL Normal 140-200 [facility] Comment on above: Result Comment: Chol less than 200 mg/dl low risk Chol 201-239 mg/dl borderline risk Chol 240 mg/dl and greater high risk Performed By: #### L IPID ####[facility] [id number] [place] [address] [facility] Cholesterol in HDL [Mass/Vol] 36 mg/dL Normal 29-[address] [facility] Comment on above: Result Comment: HDL CHOL ATP-III CLASSIFICATION Cardiovascular Risk HDL > or equal to 60 mg/dL LOW HDL < 40 mg/dL HIGH Performed By: #### L IPID ####[address] [address] [facility] Cholesterol.total/Rosalind sterol in HDL [Mass ratio] 4.6 {ratio} Normal <5.[address] [facility] Comment on above: Result Comment: PERF ORMED BY:[address] [place], [place] [id number] MEDICAL DIRECTORLEVY GILES M.D. Performed By: #### L IPID ####[address] [address] [facility] LDL Cholesterol,Calculated 111 mg/dL High 0-[address] [facility] Comment on above: Result Comment: LDL ATP III CLASSIFICATION LDL less than 100 mg/dL Optimal LDL 100-129 mg/dL Near or above optimal LDL 130-159 mg/dL Borderline high LDL 160-189 mg/dL High LDL greater than 189 mg/dL Very high Performed By: #### L IPID ####[address] [address] [facility] Triglyceride w/Reflex 84 mg/dL Normal 35-149 [facility] Comment on above: Result Comment: TRIG ATP III CLASSIFICATION TRIG less than 150 mg/dL Normal TRIG 150-199 mg/dL Borderline high TRIG 200-500 mg/dL High TRIG greater than 500 mg/dL Very high Standard traceable to the Center for Disease Conrtrol and Prevention (CDC) test method. Performed By: #### L IPID ####[id number] [place] [address] [facility] VLDL CHOLESTEROL 16 mg/dL Normal [facility] Comment on above: Performed By: #### L IPID ####[address] [address] [facility] MicroAlb Creat Ratio,Uon Albumin DL <= 20 mg/L (U) [Mass/Vol] 313.0 mg/dL High 0.0-1.[address] [facility] Comment on above: Performed By: #### U RMACRERAT, RENAL, [id number] ####[facility]#### CPEP ####[facility] , Creatinine, Urine (Random) 76.5 mg/dL Normal [facility] Comment on above: Result Comment: No r eference range established Performed By: #### U RMACRERAT, RENAL, [id number] ####[facility]#### CPEP ####[facility] , Microalbumin/Creatinine Ratio 4091.0 mg/g High 0.0-30.[address] [facility] Comment on above: Result Comment: 30-3 00 mg/g indicates an increased risk for diabetic nephropathy. Greater than 300 mg/g is consistent with clinical nephropathy. (Am. J. Kidney Disease 1995, 25:107)PERFORMED BY:[address] [place]rí[place], [place] [id number] MEDICAL DIRECTORLEVY GILES M.D. Performed By: #### U RMACRERAT, RENAL, [id number] ####[facility]#### CPEP ####[facility] , No Panel Informationon 07-19 [facility] CHROMAom 250 DO Work Phone: 0.7\S\0.7 Normal [facility] CHROMAom 250 DO Work Phone: Comment on above: Cardiovascular Risk Classification (AHA/CDC) hsCRP < 1.0 mg/l low relative risk for CVD hsCRP 1.0-3.0 mg/l average relative risk for CVD hsCRP > 3.0 mg/l high relative risk for CVD hsCRP > 7.5 mg/l active inflammation* Two results two weeks apart and averaged provide a more stable estimate of hsCRP level. *hsCRP levels > 7.5 mg/l may suggest infection that can limit the use of this marker for estimation of CVD risk.PERFORMED BY:[facility] [place] [place], [place] [phone] MEDICAL DIRECTORLEVY GILES M.D. 4.6\S\4.6 Normal <5.0 [facility] marianne 250 DO Work Phone: Comment on above: PERFORMED BY:[facility] [place] [id number] MEDICAL DIRECTORLEVY GILES M.D. 16\S\16 Normal [facility] [facility] marianne 250 DO Work Phone: [phone]\S\84 Normal 35-149 [facility] marianne 250 DO Work Phone: Comment on above: TRIG ATP III CLASSIF ICATION TRIG less than 150 mg/dL Normal TRIG 150-199 mg/dL Borderline high TRIG 200-500 mg/dL High TRIG greater than 500 mg/dL Very high Standard traceable to the Center for Disease Conrtrol and Prevention (CDC) test method. 36\S\36 Normal 29-71 [facility] mairanne 250 DO Work Phone: Comment on above: HDL CHOL ATP-III CLA SSIFICATION Cardiovascular Risk HDL > or equal to 60 mg/dL LOW HDL < 40 mg/dL HIGH No Panel InformationOrdered By: Cipriano Stiles on 07-19-2022 25-Hydroxy Vitamin D Total 8.4 ng/mL 30-[address] [facility] Comment on above: VITAMIN D STATUS 25( [place])VITAMIN D RANGE (ng/mL) Deficient <20 Insufficient 20 to <30Sufficient 30 to 100Reference: Vanna MF,Chemo OGLESBY, Sergey SIMENTAL, et al. Evaluation,treatment, and prevention of vitamin D deficiency; an Endocrine Society clinical practice guideline. JCEM. 2010; 96(7):1911-30. C-Peptide 1.8 ng/mL 1.1-4.[address] [facility] Comment on above: C-Peptide reference interval is for fasting patients.Performed at: [facility] [address] [id number] Director: Pablito Alexander PhD, Phone: [phone] Estimated GFR () 26 mL/Min [facility] Comment on above: GFR estimated refere nce range: According to KDOQI guidelines, <60 ml/min/1.73m2 is sufficient to diagnose a patient with chronic kidney disease. Pharmacy Creatinine Clearance (Chem N/A [facility] Phosphate [Mass/volume] in S gretta or PlasmaOrdered By: Cipriano Stiles on 07-19-2022 Phosphate [Mass/Vol] 5.7 mg/dL 2.5-4.6 [facility] Renal Function Panelon 07-19 Albumin [Mass/Vol] 2.6 g/dL Low 3.2-5.5 [facility] Comment on above: Performed By: #### U RMACRERAT, RENAL, [id number] ####[address]#### CPEP ####[facility] , Anion gap [Moles/Vol] 11.6 mmol/L Normal 6.0-15.0 [facility] Comment on above: Performed By: #### U RMACRERAT, RENAL, [id number] ####[place] [address]#### CPEP ####[facility] , Calcium [Mass/Vol] 8.3 mg/dL Normal 8.2-10.2 [facility] Comment on above: Performed By: #### U RMACRERAT, RENAL, [id number] ####[place] [address]#### CPEP ####[facility] , Chloride [Moles/Vol] 106 mmol/L Normal 95-114 [facility] Comment on above: Performed By: #### U RMACRERAT, RENAL, [id number] ####[address] [place] [address] [place]#### CPEP ####[facility] , CO2 [Moles/Vol] 23.6 mmol/L Normal 22.0-30.0 [facility] Comment on above: Performed By: #### U RMACRERAT, RENAL, [id number] ####[address]#### CPEP ####[facility] , Creatinine [Mass/Vol] 3.21 mg/dL High 0.64-1.27 [facility] Comment on above: Performed By: #### U RMACRERAT, RENAL, [id number] ####[address]#### CPEP ####[facility] , Estimated GFR ( Julissa 26 [facility] Comment on above: Result Comment: GFR estimated reference range: According to KDOQI guidelines, <60 ml/min/1.73m2 is sufficient to diagnose a patient with chronic kidney disease. Performed By: #### U RMACRERAT, RENAL, [id number] ####[address]#### CPEP ####[facility] , Estimated GFR (Non- Am 22 [facility] Comment on above: Performed By: #### U RMACRERAT, RENAL, [id number] ####[address]#### CPEP ####[facility] , Glucose [Mass/Vol] 173 mg/dL High 70-100 [facility] Comment on above: Result Comment: [place] om Glucose Reference Range is dependent on time and content of last meal. Glucose of more than 200 mg/dL in a nonstressed, ambulatory subject supports the diagnosis of Diabetes Mellitus. ADA recommended reference range Performed By: #### U RMACRERAT, RENAL, [id number] ####[address]#### CPEP ####[facility] , Phosphate [Mass/Vol] 5.7 mg/dL High 2.5-4.6 [facility] Comment on above: Performed By: #### U RMACRERAT, RENAL, [id number] ####[place] [address] [place]#### CPEP ####[facility] , Potassium [Moles/Vol] 4.2 mmol/L Normal 3.5-5.1 [facility] Comment on above: Performed By: #### U RMACRERAT, RENAL, [id number] ####[address]#### CPEP ####[facility] , Sodium [Moles/Vol] 137 mmol/L Normal 136-146 [facility] Comment on above: Performed By: #### U RMACRERAT, RENAL, [id number] ####[place] [address] [place]#### CPEP ####[facility] , Urea nitrogen [Mass/Vol] 50 mg/dL High 9-[address] [facility] Comment on above: Performed By: #### U RMACRERAT, RENAL, [id number] ####[place] [address] [place]#### CPEP ####[facility] , Serum or plasma anion gap de terminationOrdered By: Cipriano Stiles on 07-19-2022 Anion gap [Moles/Vol] 11.6 mmol/L 6.0-15.0 [facility] Serum or plasma calcium farida urement (mass/volume)Ordered By: Cipriano Stiles on 07-19-2022 Calcium [Mass/Vol] 8.3 mg/dL 8.2-10.2 [facility] Serum or plasma chloride trina surement (moles/volume)Ordered By: Cipriano Stiles on 07-19-2022 Chloride [Moles/Vol] 106 mmol/L 95-114 [facility] Serum or plasma glucose farida urement (mass/volume)Ordered By: Cipriano Stiles on 07-19-2022 Glucose [Mass/Vol] 173 mg/dL 70-100 [facility] Comment on above: ADA recommended refe rence rangeRandom Glucose Reference Range is dependent on time and content of last meal. Glucose of more than 200 mg/dL in a nonstressed, ambulatory subject supports the diagnosis of Diabetes Mellitus. Serum or plasma high density lipoprotein (HDL) cholesterol measurementOrdered By: Denilson Gomez on 07-19-2022 Cholesterol in HDL [Mass/Vol] 36 mg/dL 29- [facility] Comment on above: HDL CHOL ATP-III CLA SSIFICATION Cardiovascular RiskHDL > or equal to 60 mg/dL LOWHDL < 40 mg/dL HIGH Serum or plasma potassium me asurement (moles/volume)Ordered By: Cipriano Stiles on 07-19-2022 Potassium [Moles/Vol] 4.2 mmol/L 3.5-5.1 [facility] Serum or plasma sodium measu rement (moles/volume)Ordered By: Cipriano Stiles on 07-19-2022 Sodium [Moles/Vol] 137 mmol/L 136-146 [facility] Serum or plasma total carbon dioxide measurement (moles/volume)Ordered By: Cipriano Stiles on 07-19-2022 CO2 [Moles/Vol] 23.6 mmol/L 22.0-30.0 [facility] Serum or plasma total choles terol/high density lipoprotein (HDL) cholesterol mass ratOrdered By: Denilson Gomez on 07-19-2022 Cholesterol.total/Rosalind sterol in HDL [Mass ratio] 4.6 {ratio} <5.[address] [facility] Serum or plasma urea nitroge n measurement (mass/volume)Ordered By: Cipriano Stiles on 07-19-2022 Urea nitrogen [Mass/Vol] 50 mg/dL 05-[address] [facility] Triglyceride [Mass/volume] i n Serum or PlasmaOrdered By: Denilson Gomez on 07-19-2022 Triglyceride [Mass/Vol] 84 mg/dL 35-149 [facility] Comment on above: TRIG ATP III CLASSIF ICATIONTRIG less than 150 mg/dL NormalTRIG 150-199 mg/dL Borderline highTRIG 200-500 mg/dL High TRIG greater than 500 mg/dL Very highStandard traceable to the Center for Disease Conrtrol and Prevention (CDC) test method. Urine microalbumin measureme nt with detection limit of 20 mg/L or less (mass/volume)Ordered By: Cipriano Stiles on 07-19-2022 Albumin DL <= 20 mg/L (U) [Mass/Vol] 313.0 mg/dL 0.0-1.[address] [facility] Urine microalbumin/creatinin e mass ratioOrdered By: Cipriano Stiles on 07-19-2022 Albumin/Creatinine DL <= 20 mg/L (U) [Mass ratio] 4091.0 mg/g 0.0-30.[address] [facility] Comment on above: 30-300 mg/g indicate s an increased risk for diabetic nephropathy. Greater than 300 mg/g is consistent with clinical nephropathy. (Am. J. Kidney Disease 1995, 25:107) Vitamin D 25 Hydroxy Totalon 07-19-2022 Vitamin D 25 Hydroxy Total 8.4 ng/mL Low 30-[address] [facility] Comment on above: Result Comment: KAMALA MIN D STATUS 25(OH)VITAMIN D RANGE (ng/mL) Deficient <20 Insufficient 20 to <30 Sufficient 30 to 100 Reference: Vanna MF,Chemo NC, Sergey SIMENTAL, et al. Evaluation,treatment, and prevention of vitamin D deficiency; an Endocrine Society clinical practice guideline. JCEM. 2010; 96(7):1911-30.PERFORMED BY:[facility] [place], [place] [id number] MEDICAL DIRECTORLEVY GILES M.D. Performed By: #### U RMACRERAT, RENAL, [id number] ####[facility] [place] [address] [facility]#### CPEP ####[facility] , Albumin [Mass/volume] in Ser um or PlasmaOrdered By: Zeus Bradley on 07-09-2022 Albumin [Mass/Vol] 2.7 g/dL 3.2-5.5 [facility] Automated erythrocytes count in urine sediment (number/area)Ordered By: Zeus Bradley on 07-09-2022 RBC Auto (Urine sed) [#/Area] 3-4 [HPF] 0-[address] [facility] Automated leukocytes count i n urine sediment (number/area)Ordered By: Zeus Bradley on 07-09-2022 WBC Auto (Urine sed) [#/Area] 0-1 [HPF] 0-[address] [facility] Basophils Auto (Bld) [#/Vol] Ordered By: Zeus Bradley on 07-09-2022 Basophils (Bld) [#/Vol] 0.1 10*3/uL 0.0-0.[address] [facility] Basophils/100 WBC Auto (Bld) Ordered By: Zeus Bradley on 07-09-2022 Basophils/100 WBC (Bld) 1.3 % . [facility] Bilirubin Test strip Ql (U)O rdered By: Zeus Bradley on 07-09-2022 Bilirubin Ql (U) Negative Negative [facility] Color Auto (U)Ordered By: Nas Bradley on 07-09-2022 Color (U) Yellow Yellow [facility] Creatinine and Glomerular fi ltration rate.predicted panel (S/P/Bld)Ordered By: Zeus Bradley on 07-09-2022 Creatinine [Mass/Vol] 3.40 mg/dL 0.64-1.27 [facility] Eosinophils Auto (Bld) [#/Vo l]Ordered By: Zeus Bradley on 07-09-2022 Eosinophils (Bld) [#/Vol] 0.2 10*3/uL 0.0-0.[address] [facility] Eosinophils/100 WBC Auto (Bl d)Ordered By: Zeus Bradley on 07-09-2022 Eosinophils/100 WBC (Bld) 1.9 % . [facility] Erythrocyte distribution wid th Auto (RBC) [Ratio]Ordered By: Zeus Bradley on 07-09-2022 Erythrocyte distribution width (RBC) [Ratio] 13.7 % 12.0-14.[address] [facility] Estimated glomerular filtrat ion rate (GFR) non- AmericanOrdered By: Zeus Bradley on 07-09-2022 GFR/1.73 sq M.predicted among non-blacks MDRD (S/P/Bld) [Vol rate/Area] 20 mL/Min [facility] Globulin Calc (S) [Mass/Vol] Ordered By: Zeus Bradley on 07-09-2022 Globulin (S) [Mass/Vol] 3.8 g/dL [facility] Glucose Glucometer (BldC) [M ass/Vol]Ordered By: Zeus Bradley on 07-09-2022 Glucose [Mass/Vol] 128 mg/dL [facility] Comment on above: Random Glucose Refer ence Range is dependent on time and content of last meal. Glucose of more than 200 mg/dL in a nonstressed, ambulatory subject supports the diagnosis of Diabetes Mellitus. Hematocrit Auto (Bld) [Volum e fraction]Ordered By: Zeus Bradley on 07-09-2022 Hematocrit (Bld) [Volume fraction] 32.4 % 38.8-50.[address] [facility] Hemoglobin [Mass/volume] in BloodOrdered By: Zeus Bradley on 07-09-2022 Hemoglobin (Bld) [Mass/Vol] 11.1 g/dL 13.0-17.[address] [facility] Ketones Auto test strip (U) [Mass/Vol]Ordered By: Zeus Bradley on 07-09-2022 Ketones (U) [Mass/Vol] Negative Negative [facility] - Chemistry and C hemistry - challengeOrdered By: Zeus Bradley on 07-09-2022 Magnesium [Mass/Vol] 1.9 mg/dL 1.6-2.6 [facility] - Hematology and Cell countsOrdered By: Zeus Bradley on 07-09-2022 Nucleated RBC/100 WBC (Bld) [Ratio] 0.0 % 0-0.[address] [facility] - UrinalysisOrder ed By: Zeus Bradley on 07-09-2022 Hyaline casts LM Ql (Urine sed) 0-8 [LPF] 0-[address] [facility] Leukocytes [#/volume] in Blo od by Automated countOrdered By: Zeus Bradley on 07-09-2022 WBC (Bld) [#/Vol] 8.2 10*3/uL 4.5-11.0 [facility] Lymphocytes Auto (Bld) [#/Vo l]Ordered By: Zeus Bradley on 07-09-2022 Lymphocytes (Bld) [#/Vol] 1.3 10*3/uL 1.00-4.[address] [facility] Lymphocytes/100 WBC Auto (Bl d)Ordered By: Zeus Bradley on 07-09-2022 Lymphocytes/100 WBC (Bld) 16.2 % . [facility] MCH Auto (RBC) [Entitic mass ]Ordered By: Zeus Bradley on 07-09-2022 MCH (RBC) [Entitic mass] 29.3 pg 27.5-35.[address] [facility] MCHC Auto (RBC) [Mass/Vol]Or dered By: Zeus Bradley on 07-09-2022 MCHC (RBC) [Mass/Vol] 34.2 g/dL 32.5-35.6 [facility] MCV Auto (RBC) [Entitic vol] Ordered By: Zeus Bradley on 07-09-2022 MCV (RBC) [Entitic vol] 85.7 fL 83.5-101 [facility] Monocytes Auto (Bld) [#/Vol] Ordered By: Zeus Bradley on 07-09-2022 Monocytes (Bld) [#/Vol] 0.4 10*3/uL 0.0-0.[address] [facility] Monocytes/100 WBC Auto (Bld) Ordered By: Zeus Bradley on 07-09-2022 Monocytes/100 WBC (Bld) 4.4 % . [facility] Neutrophils Auto (Bld) [#/Vo l]Ordered By: Zeus Bradley on 07-09-2022 Neutrophils (Bld) [#/Vol] 6.2 10*3/uL 1.8-7.[address] [facility] Neutrophils/100 WBC Auto (Bl d)Ordered By: Zeus Bradley on 07-09-2022 Neutrophils/100 WBC (Bld) 76.2 % . [facility] Nitrite Test strip Ql (U)Ord ered By: Zeus Bradley on 07-09-2022 Nitrite Ql (U) Negative Negative [facility] No Panel InformationOrdered By: Zeus Bradley on 07-09-2022 Bedside Glucose Comment Glu2: cleaned meter [facility] Estimated GFR () 25 mL/Min [facility] Comment on above: GFR estimated refere nce range: According to KDOQI guidelines, <60 ml/min/1.73m2 is sufficient to diagnose a patient with chronic kidney disease. Pharmacy Creatinine Clearance (Chem 31.[address] [facility] Platelet mean volume Auto (B ld) [Entitic vol]Ordered By: Zeus Bradley on 07-09-2022 Platelet mean volume (Bld) [Entitic vol] 8.0 fL 6.6-10.[address] [facility] Platelets Auto (Bld) [#/Vol] Ordered By: Zeus Bradley on 07-09-2022 Platelets (Bld) [#/Vol] 228 10*3/uL 150-[address] [facility] Protein Auto test strip (U) [Mass/Vol]Ordered By: Zeus Bradley on 07-09-2022 Protein (U) [Mass/Vol] mg/dL Negative [facility] Protein [Mass/volume] in Ser um or PlasmaOrdered By: Zeus Bradley on 07-09-2022 Protein [Mass/Vol] 6.5 g/dL 6.1-7.9 [facility] RBC Auto (Bld) [#/Vol]Ordere d By: eZus Bradley on 07-09-2022 RBC (Bld) [#/Vol] 3.78 10*6/uL 3.90-5.60 [facility] Serum or plasma alanine matthews otransferase measurement without P-5'-P (enzymatic activiOrdered By: Zeus Bradley on 07-09-2022 ALT No additional P-5'-P [Catalytic activity/Vol] 17 U/L 10-[address] [facility] Serum or plasma albumin/glob ulin mass ratioOrdered By: eZus Bradley on 07-09-2022 Albumin/Globulin [Mass ratio] 0.7 {ratio} [facility] Serum or plasma alkaline harriett sphatase measurement (enzymatic activity/volume)Ordered By: Zeus Bradley on 07-09-2022 ALP [Catalytic activity/Vol] 79 U/L 32-[address] [facility] Serum or plasma anion gap de terminationOrdered By: Zeus Bradley on 07-09-2022 Anion gap [Moles/Vol] 7.1 mmol/L 6.0-15.0 [facility] Serum or plasma aspartate am inotransferase measurement (enzymatic activity/volume)Ordered By: Zeus Bradley on 07-09-2022 AST [Catalytic activity/Vol] 18 U/L 10-[address] [facility] Serum or plasma calcium farida urement (mass/volume)Ordered By: Zeus Bradley on 07-09-2022 Calcium [Mass/Vol] 8.6 mg/dL 8.2-10.2 [facility] Serum or plasma chloride trina surement (moles/volume)Ordered By: Zeus Bradley on 07-09-2022 Chloride [Moles/Vol] 105 mmol/L 95-114 [facility] Serum or plasma glucose farida urement (mass/volume)Ordered By: Zeus Bradley on 07-09-2022 Glucose [Mass/Vol] 80 mg/dL 70-100 [facility] Comment on above: ADA recommended refe rence rangeRandom Glucose Reference Range is dependent on time and content of last meal. Glucose of more than 200 mg/dL in a nonstressed, ambulatory subject supports the diagnosis of Diabetes Mellitus. Serum or plasma potassium me asurement (moles/volume)Ordered By: Zeus Bradley on 07-09-2022 Potassium [Moles/Vol] 4.0 mmol/L 3.5-5.1 [facility] Serum or plasma sodium measu rement (moles/volume)Ordered By: Zeus Bradley on 07-09-2022 Sodium [Moles/Vol] 133 mmol/L 136-146 [facility] Serum or plasma total biliru bin measurement (mass/volume)Ordered By: Zeus Bradley on 07-09-2022 Bilirubin [Mass/Vol] 0.5 mg/dL 0.3-1.2 [facility] Serum or plasma total carbon dioxide measurement (moles/volume)Ordered By: Zeus Bradley on 07-09-2022 CO2 [Moles/Vol] 24.9 mmol/L 22.0-30.0 [facility] Serum or plasma urea nitroge n measurement (mass/volume)Ordered By: Zeus Bradley on 07-09-2022 Urea nitrogen [Mass/Vol] 36 mg/dL 9- [facility] Specific gravity Auto test s trip (U) [Rel density]Ordered By: Zeus Bradley on 07-09-2022 Specific gravity (U) [Rel density] 1.009 1.001-1.[address] [facility] Squamous epithelial cells de tection in urine sediment by light microscopyOrdered By: Zeus Bradley on 07-09-2022 Epithelial cells.squamous LM Ql (Urine sed) 0-1 [HPF] 0-[address] [facility] Urine bacteria detection by automated methodOrdered By: Zeus Bradley on 07-09-2022 Bacteria Auto Ql (U) None seen None Seen [facility] Urine clarity by refractomet ry automatedOrdered By: Zeus Bradley on 07-09-2022 Clarity Refractometry automated (U) Clear Clear [facility] Urine glucose measurement by automated test strip (mass/volume)Ordered By: Zeus Bradley on 07-09-2022 Glucose Auto test strip (U) [Mass/Vol] 250 mg/dL Normal [facility] Urine hemoglobin detection b y automated test stripOrdered By: Zeus Brdaley on 07-09-2022 Hemoglobin Auto test strip Ql (U) 1+ Negative [facility] Urine leukocyte esterase det ection by automated test stripOrdered By: Zeus Bradley on 07-09-2022 Leukocyte esterase Auto test strip Ql (U) Negative Negative [facility] Urobilinogen Auto test strip (U) [Mass/Vol]Ordered By: Zeus Bradley on 07-09-2022 Urobilinogen (U) [Mass/Vol] Normal mg/dL Normal [facility] pH Auto test strip (U)Ordere d By: Zeus Bradley on 07-09-2022 pH (U) 5.5 [pH] 5.0-9.[address] [facility] Office Visit (Cardiology)on 07-05-2022 Follow-up visit Diagnoses/Problems Assessed ASHD (arteriosclerotic heart disease) (414.00) (I25.10) CHF (congestive heart failure) (428.0) (I50.9) Diabetes mellitus (250.00) (E11.9) Essential hypertension, benign (401.1) (I10) Hyperlipidemia (272.4) (E78.5) NSTEMI, initial episode of care (410.71) (I21.4) Current every day smoker (305.1) (F17.200) 1-2 Packs of cigarettes daily Body mass index (BMI) of 21.0 to 21.9 in adult (V85.1) (Z68.21) History of AL (myocardial infarction) (412) (I25.2) Chronic kidney disease (CKD) (585.9) (N18.9) Orders ASHD (arteriosclerotic heart disease), CHF (congestive heart failure) Echocardiogram; Status:Hold For - Scheduling,Retrospective Authorization; Requested for:05Jul2022; Body mass index (BMI) of 21.0 to 21.9 in adult Healthy Weight Tips; Status:Complete - Retrospective Authorization; Done: 05Jul2022 Some eating tips that can help you lose weight.; Status:Complete - Retrospective Authorization; Done: 05Jul2022 CHF (congestive heart failure) Start: Isosorbide Mononitrate ER 30 MG Oral Tablet Extended Release 24 Hour; TAKE 1 TABLET BY MOUTH EVERY DAY Hyperlipidemia Lipid Panel; Status:Active - Retrospective Authorization; Requested for:05Jul2022; TR CRP, High Sensitivity; Status:Hold For - Specimen/Data Collection,Retrospective Authorization; Requested for:05Jul2022; SocHx: Current every day smoker You need to stop smoking. Though it is not easy, more than half of all adult smokers have quit. We encourage you to write down all the reasons you should quit smoking and set a quit date for yourself. Ask us how we can help. You may also call 7-660-OZASNOW for free resources and assistance.; Status:Complete - Retrospective Authorization; Done: 05Jul2022 Tobacco Use Screening; Status:Complete; Done: 05Jul2022 Patient Instructions Please bring all medicines, vitamins, and herbal supplements with you when you come to the office. Prescriptions will not be filled unless you are compliant with your follow up appointments or have a follow up appointment scheduled as per instruction of your physician. Refills should be requested at the time of your visit. Follow up in 6 months Echo and labs to be done Chief Complaint YOEL WERNER is being seen for a 12 week follow-up of. 37-year-old type I diabetic returns for follow-up. He has had sporadic anginal discomfort. He is now had progressive kidney dysfunction most recent creatinine is 3.5 and is followed by nephrology. He sustained anterior AL in October 2021 with primary revascularization of the LAD with residual circumflex and RCA disease. His left ventricular function at that time was 40 to 45%. He has underlying type 1 diabetes, progressive/chronic kidney disease as noted, ongoing tobacco use, class II angina. Is [place] [employer] is class IIc and remains hemodynamically stable Recommendations: Tobacco cessation counseling, initiate isosorbide 30 mg daily for known disease and angina complaints, limited echo to assess LV function, obtain lipid panel and high-sensitivity CRP we will follow-up again in 6 months Surgical History Problems History of Cardiac catheterization with stent placement Denied: History of Complete colonoscopy History of Eye surgery History of Knee surgery History of Vasectomy Current Meds Medication NameInstruction Aspirin 81 MG Oral Tablet ChewableTake 1 tablet daily Atorvastatin Calcium 80 MG Oral TabletTAKE 1 TABLET BY MOUTH EVERY NIGHT FOR 30 DAYS Basaglar KwikPen 100 UNIT/ML Subcutaneous Solution Pen-injectorUSE DIRECTED. Carvedilol 12.5 MG Oral TabletTAKE 1 TABLET TWICE DAILY. Clopidogrel Bisulfate 75 MG Oral TabletTAKE 1 TABLET Daily Famotidine 20 MG Oral TabletTAKE 1 TABLET AT BEDTIME. Furosemide 40 MG Oral TabletTAKE 1 TABLET Daily HumaLOG KwikPen 100 UNIT/ML Subcutaneous Solution Pen-injectorUSE DIRECTED hydrALAZINE HCl - 25 MG Oral TabletTAKE 1 TABLET 3 TIMES DAILY. Losartan Potassium 25 MG Oral TabletTAKE 1 TABLET TWICE DAILY. Nitroglycerin 0.4 MG Sublingual Tablet SublingualPLACE 1 TABLET UNDER THE TONGUE EVERY 5 MINUTES UP TO 3 DOSES NEEDED FOR CHEST PAIN. Omeprazole 20 MG Oral Capsule Delayed ReleaseTAKE 1 CAPSULE Daily Allergies Medication No Known Drug Allergies Recorded By: Allyson Xiong; 11/24/2021 1:09:16 PM Social History Problems Current every day smoker (305.1) (F17.200) 1-2 Packs of cigarettes daily Daily caffeine consumption, 2-3 servings a day No alcohol use No illicit drug use Vitals Vital Signs Recorded: 05Jul2022 11:35AM Heart Rate72, R Radial [id number], LUE, Sitting [id number], LUE, Sitting Height6 ft 1 in Luqajx398 lb BMI Iunnigrino28.11 kg/m2 BSA Calculated1.96 Tobacco Useb) No Falls Screening (Age 18+)c) Not medically indicated Physical Exam Constitutional: alert and in no acute distress. Neck: neck is supple, symmetric, trachea midline, no masses and no thyromegaly . Pulmonary: no increased work (more content not included)... Normal [employer] Tobacco Screening.on 022 Fall risk assessment c) Not medically indicated -[facility] [employer]co[employer] marianne 250 DO Work Phone: Tobacco use status [facility] b) No M -[facility] CHROMAom 250 DO Work Phone: Automated erythrocytes count in urine sediment (number/area)Ordered By: Angel Mejía on 06-29-2022 RBC Auto (Urine sed) [#/Area] 5-9 [HPF] 0-[address] [facility] Automated leukocytes count i n urine sediment (number/area)Ordered By: Angel Mejía on 06-29-2022 WBC Auto (Urine sed) [#/Area] 1-2 [HPF] 0-[address] [facility] Bilirubin Test strip Ql (U)O rdered By: Angel Mejía on 06-29-2022 Bilirubin Ql (U) Negative Negative [facility] Body fluid albumin measureme nt (mass/volume)Ordered By: Angel Mejía on 06-29-2022 Albumin (Body fld) [Mass/Vol] 2.8 g/dL 3.2-5.[address] [facility] CT biopsyOrdered By: Varsha ricardo on 06-29-2022 Transferrin [Mass/Vol] 166 mg/dL 180-380 [facility] Color Auto (U)Ordered By: Ab yusra Mejía on 06-29-2022 Color (U) Yellow Yellow [facility] Creatinine [Mass/volume] in UrineOrdered By: Angel Mejía on 06-29-2022 Creatinine (U) [Mass/Vol] 39.6 mg/dL [facility] Comment on above: No reference range e stablished Creatinine and Glomerular fi ltration rate.predicted panel (S/P/Bld)Ordered By: Angel Mejía on 06-29-2022 Creatinine [Mass/Vol] 3.30 mg/dL 0.64-1.27 [facility] Erythrocyte distribution wid th Auto (RBC) [Ratio]Ordered By: Angel Mejía on 06-29-2022 Erythrocyte distribution width (RBC) [Ratio] 13.6 % 12.0-14.[address] [facility] Estimated glomerular filtrat ion rate (GFR) non- AmericanOrdered By: Angel Mejía on 06-29-2022 GFR/1.73 sq M.predicted among non-blacks MDRD (S/P/Bld) [Vol rate/Area] 21 mL/Min [facility] Ferritin [Mass/volume] in Se rum or PlasmaOrdered By: Angel Mejía on 06-29-2022 Ferritin [Mass/Vol] 123.9 ng/mL 23.9-336.2 [facility] Hematocrit Auto (Bld) [Volum e fraction]Ordered By: Angel Mejía on 06-29-2022 Hematocrit (Bld) [Volume fraction] 33.2 % 38.8-50.[address] [facility] Hemoglobin [Mass/volume] in BloodOrdered By: Angel Mejía on 06-29-2022 Hemoglobin (Bld) [Mass/Vol] 11.4 g/dL 13.0-17.[address] [facility] Iron [Mass/volume] in Serum or PlasmaOrdered By: Angel Mejía on 06-29-2022 Iron [Mass/Vol] 63 ug/dL 40-[address] [facility] Iron binding capacity [Mass/ volume] in Serum or PlasmaOrdered By: Angel Mejía on 06-29-2022 Iron binding capacity [Mass/Vol] 232 ug/dL 255-[address] [facility] Iron saturation [Mass Fracti on] in Serum or PlasmaOrdered By: Angel Mejía on 06-29-2022 Iron saturation [Mass fraction] 27.0 % 20-[address] [facility] Ketones Auto test strip (U) [Mass/Vol]Ordered By: Angel Mejía on 06-29-2022 Ketones (U) [Mass/Vol] Negative Negative [facility] - Chemistry and C hemistry - challengeOrdered By: Angel Mejía on 06-29-2022 Magnesium [Mass/Vol] 1.9 mg/dL 1.6-2.6 [facility] - UrinalysisOrder ed By: Angel Mejía on 06-29-2022 Hyaline casts LM Ql (Urine sed) 0-8 [LPF] 0-[address] [facility] MCH Auto (RBC) [Entitic mass ]Ordered By: Angel Mejía on 06-29-2022 MCH (RBC) [Entitic mass] 29.2 pg 27.5-35.[address] [facility] MCHC Auto (RBC) [Mass/Vol]Or dered By: Angel Mejía on 06-29-2022 MCHC (RBC) [Mass/Vol] 34.3 g/dL 32.5-35.6 [facility] MCV Auto (RBC) [Entitic vol] Ordered By: Angel Mejía on 06-29-2022 MCV (RBC) [Entitic vol] 85.2 fL 83.5-101 [facility] Nitrite Test strip Ql (U)Ord ered By: Angel Mejía on 06-29-2022 Nitrite Ql (U) Negative Negative [facility] No Panel InformationOrdered By: Angel Mejía on 06-29-2022 Estimated GFR () 26 mL/Min [facility] Comment on above: GFR estimated refere nce range: According to KDOQI guidelines, <60 ml/min/1.73m2 is sufficient to diagnose a patient with chronic kidney disease. Pharmacy Creatinine Clearance (Chem N/A [facility] Phosphate [Mass/volume] in S gretta or PlasmaOrdered By: Angel Mejía on 06-29-2022 Phosphate [Mass/Vol] 5.0 mg/dL 2.5-4.6 [facility] Platelet mean volume Auto (B ld) [Entitic vol]Ordered By: Angel Mejía on 06-29-2022 Platelet mean volume (Bld) [Entitic vol] 8.6 fL 6.6-10.[address] [facility] Platelets Auto (Bld) [#/Vol] Ordered By: Angel Mejía on 06-29-2022 Platelets (Bld) [#/Vol] 242 10*3/uL 150-[address] [facility] Protein Auto test strip (U) [Mass/Vol]Ordered By: Angel Mejía on 06-29-2022 Protein (U) [Mass/Vol] 300 mg/dL Negative [facility] [facility] [Mass/volume] in Uri neOrdered By: Angel Mejía on 06-29-2022 Protein (U) [Mass/Vol] 315 mg/dL 0-9 [facility] RBC Auto (Bld) [#/Vol]Ordere d By: Angel Mejía on 06-29-2022 RBC (Bld) [#/Vol] 3.90 10*6/uL 3.90-5.60 [facility] Serum or plasma anion gap de terminationOrdered By: Angel Mejía on 06-29-2022 Anion gap [Moles/Vol] 13.4 mmol/L 6.0-15.0 [facility] Serum or plasma calcium farida urement (mass/volume)Ordered By: Angel Mejía on 06-29-2022 Calcium [Mass/Vol] 8.9 mg/dL 8.2-10.2 [facility] Serum or plasma chloride trina surement (moles/volume)Ordered By: Angel Mejía on 06-29-2022 Chloride [Moles/Vol] 101 mmol/L 95-114 [facility] Serum or plasma glucose farida urement (mass/volume)Ordered By: Angel Mejía on 06-29-2022 Glucose [Mass/Vol] 70 mg/dL 70-100 [facility] Comment on above: ADA recommended refe rence rangeRandom Glucose Reference Range is dependent on time and content of last meal. Glucose of more than 200 mg/dL in a nonstressed, ambulatory subject supports the diagnosis of Diabetes Mellitus. Serum or plasma intact parat hyroid hormone measurement (mass/volume)Ordered By: Angel Mejía on 06-29-2022 Parathyrin.intact [Mass/Vol] 244.2 pg/mL [facility] Serum or plasma potassium me asurement (moles/volume)Ordered By: Angel Mejía on 06-29-2022 Potassium [Moles/Vol] 4.7 mmol/L 3.5-5.1 [facility] Serum or plasma sodium measu rement (moles/volume)Ordered By: Angel Mejía on 06-29-2022 Sodium [Moles/Vol] 133 mmol/L 136-146 [facility] Serum or plasma total carbon dioxide measurement (moles/volume)Ordered By: Angel Mejía on 06-29-2022 CO2 [Moles/Vol] 23.3 mmol/L 22.0-30.0 [facility] Serum or plasma urea nitroge n measurement (mass/volume)Ordered By: Angel Mejía on 06-29-2022 Urea nitrogen [Mass/Vol] 35 mg/dL 05-[address] [facility] Serum or plasma uric acid me asurement (mass/volume)Ordered By: Angel Mejía on 06-29-2022 Urate [Mass/Vol] 5.7 mg/dL 2.6-7.2 [facility] Specific gravity Auto test s trip (U) [Rel density]Ordered By: Angel Mejía on 06-29-2022 Specific gravity (U) [Rel density] 1.007 1.001-1.[address] [facility] Squamous epithelial cells de tection in urine sediment by light microscopyOrdered By: Angel Mejía on 06-29-2022 Epithelial cells.squamous LM Ql (Urine sed) 0-1 [HPF] 0-[address] [facility] Urine bacteria detection by automated methodOrdered By: Angel Mejía on 06-29-2022 Bacteria Auto Ql (U) None seen None Seen [facility] Urine clarity by refractomet ry automatedOrdered By: Angel Mejía on 06-29-2022 Clarity Refractometry automated (U) Clear Clear [facility] Urine glucose measurement by automated test strip (mass/volume)Ordered By: Angel Mejía on 06-29-2022 Glucose Auto test strip (U) [Mass/Vol] Normal mg/dL Normal [facility] Urine hemoglobin detection b y automated test stripOrdered By: Angel Mejía on 06-29-2022 Hemoglobin Auto test strip Ql (U) 1+ Negative [facility] Urine leukocyte esterase det ection by automated test stripOrdered By: Angel Mejía on 06-29-2022 Leukocyte esterase Auto test strip Ql (U) Negative Negative [facility] Urine protein/creatinine rat ioOrdered By: Angel Mejía on 06-29-2022 Protein/Creatinine (U) [Ratio] 7955 mg/g{Cre} 0-[address] [facility] Urobilinogen Auto test strip (U) [Mass/Vol]Ordered By: Angel Mejía on 06-29-2022 Urobilinogen (U) [Mass/Vol] Normal mg/dL Normal [facility] WBC Auto (Bld) [#/Vol]Ordere d By: Angel Mejía on 06-29-2022 WBC (Bld) [#/Vol] 7.3 10*3/uL 4.1-10.5 [facility] pH Auto test strip (U)Ordere d By: Angel Mejía on 06-29-2022 pH (U) 6.0 [pH] 5.0-9.[address] [facility] Activated partial thrombopla stin time (aPTT) in platelet poor plasma by coagulation aOrdered By: Yobani Hansen on 06-13-2022 aPTT Coag (PPP) [Time] 42.5 s 25.1-36.5 [facility] Albumin [Mass/volume] in Ser um or PlasmaOrdered By: Yobani Hansen on 06-13-2022 Albumin [Mass/Vol] 2.3 g/dL 3.2-5.5 [facility] Automated erythrocytes count in urine sediment (number/area)Ordered By: Yobani Hansen on 06-13-2022 RBC Auto (Urine sed) [#/Area] 10-19 [HPF] 0-[address] [facility] Automated leukocytes count i n urine sediment (number/area)Ordered By: Yobani Hansen on 06-13-2022 WBC Auto (Urine sed) [#/Area] 3-4 [HPF] 0-[address] [facility] Basophils Auto (Bld) [#/Vol] Ordered By: Yobani Hansen on 06-13-2022 Basophils (Bld) [#/Vol] 0.1 10*3/uL 0.0-0.[address] [facility] Basophils/100 WBC Auto (Bld) Ordered By: Yobani Hansen on 06-13-2022 Basophils/100 WBC (Bld) 1.3 % . [facility] Bilirubin Test strip Ql (U)O rdered By: Yobani Hansen on 06-13-2022 Bilirubin Ql (U) Negative Negative [facility] COVID CepheidOrdered By: Elina Hansen on 06-13-2022 SARS-CoV-2 (COVID-19) RNA HAO+probe Ql (Unsp spec) [facility] SARS-CoV-2 (COVID-19) Ab IA Ql Negative Negative [facility] Comment on above: This is a duplicate [employer] Xpert Xpress CoV-2/Flu/RSV Plus RNA by RT-PCR result to be used for statistical tracking purpose only. SARS-CoV-2 (COVID-19) RNA HAO+probe Ql (Unsp spec) [facility] Color Auto (U)Ordered By: Leandro Hansen on 06-13-2022 Color (U) Yellow Yellow [facility] Creatinine and Glomerular fi ltration rate.predicted panel (S/P/Bld)Ordered By: Yobani Hansen on 06-13-2022 Creatinine [Mass/Vol] 3.47 mg/dL 0.64-1.27 [facility] Eosinophils Auto (Bld) [#/Vo l]Ordered By: Yobani Hasnen on 06-13-2022 Eosinophils (Bld) [#/Vol] 0.1 10*3/uL 0.0-0.[address] [facility] Eosinophils/100 WBC Auto (Bl d)Ordered By: Yobani Hansen on 06-13-2022 Eosinophils/100 WBC (Bld) 0.8 % . [facility] Erythrocyte distribution wid th Auto (RBC) [Ratio]Ordered By: Yobani Hansen on 06-13-2022 Erythrocyte distribution width (RBC) [Ratio] 13.0 % 12.0-14.[address] [facility] Estimated glomerular filtrat ion rate (GFR) non- AmericanOrdered By: Yobani Hansen on 06-13-2022 GFR/1.73 sq M.predicted among non-blacks MDRD (S/P/Bld) [Vol rate/Area] 20 mL/Min [facility] Globulin Calc (S) [Mass/Vol] Ordered By: Yobani Hansen on 06-13-2022 Globulin (S) [Mass/Vol] 3.6 g/dL [facility] Glucose Glucometer (BldC) [M ass/Vol]Ordered By: Yobani Hansen on 06-13-2022 Glucose [Mass/Vol] 161 mg/dL [facility] Comment on above: Random Glucose Refer ence Range is dependent on time and content of last meal. Glucose of more than 200 mg/dL in a nonstressed, ambulatory subject supports the diagnosis of Diabetes Mellitus. Hematocrit Auto (Bld) [Volum e fraction]Ordered By: Yobani Hansen on 06-13-2022 Hematocrit (Bld) [Volume fraction] 34.0 % 38.8-50.[address] [facility] Hemoglobin [Mass/volume] in BloodOrdered By: Yobani Hansen on 06-13-2022 Hemoglobin (Bld) [Mass/Vol] 11.3 g/dL 13.0-17.[address] [facility] Ketones Auto test strip (U) [Mass/Vol]Ordered By: Yobani Hansen on 06-13-2022 Ketones (U) [Mass/Vol] Negative Negative [facility] - Chemistry and C hemistry - challengeOrdered By: Yobani Hansen on 06-13-2022 Lipase [Catalytic activity/Vol] 20.0 U/L 22-[address] [facility] Natriuretic peptide B (Bld) [Mass/Vol] 733.0 pg/mL 5-[address] [facility] Laboratory - CoagulationOrde red By: Yobani Hansen on 06-13-2022 PT Coag (PPP) [Time] 11.7 s 9.0-12.9 [facility] - Hematology and Cell countsOrdered By: Yobani Hansen on 06-13-2022 Nucleated RBC/100 WBC (Bld) [Ratio] 0.1 % 0-0.[address] [facility] - UrinalysisOrder ed By: Yobani Hansen on 06-13-2022 Hyaline casts LM Ql (Urine sed) 0-8 [LPF] 0-[address] [facility] Leukocytes [#/volume] in Blo od by Automated countOrdered By: Yobani Hansen on 06-13-2022 WBC (Bld) [#/Vol] 9.0 10*3/uL 4.5-11.0 [facility] Lymphocytes Auto (Bld) [#/Vo l]Ordered By: Yobani Hansen on 06-13-2022 Lymphocytes (Bld) [#/Vol] 1.1 10*3/uL 1.00-4.[address] [facility] Lymphocytes/100 WBC Auto (Bl d)Ordered By: Yobani Hansen on 06-13-2022 Lymphocytes/100 WBC (Bld) 12.6 % . [facility] MCH Auto (RBC) [Entitic mass ]Ordered By: Yobani Hansen on 06-13-2022 MCH (RBC) [Entitic mass] 28.6 pg 27.5-35.[address] [facility] MCHC Auto (RBC) [Mass/Vol]Or dered By: Yobani Hansen on 06-13-2022 MCHC (RBC) [Mass/Vol] 33.3 g/dL 32.5-35.6 [facility] MCV Auto (RBC) [Entitic vol] Ordered By: Yobani Hansen on 06-13-2022 MCV (RBC) [Entitic vol] 86.0 fL 83.5-101 [facility] Monocytes Auto (Bld) [#/Vol] Ordered By: Yobani Hansen on 06-13-2022 Monocytes (Bld) [#/Vol] 0.4 10*3/uL 0.0-0.[address] [facility] Monocytes/100 WBC Auto (Bld) Ordered By: Yobani Hansen on 06-13-2022 Monocytes/100 WBC (Bld) 4.3 % . [facility] Neutrophils Auto (Bld) [#/Vo l]Ordered By: Yobani Hansen on 06-13-2022 Neutrophils (Bld) [#/Vol] 7.3 10*3/uL 1.8-7.[address] [facility] Neutrophils/100 WBC Auto (Bl d)Ordered By: Yobani Hansen on 06-13-2022 Neutrophils/100 WBC (Bld) 81.0 % . [facility] Nitrite Test strip Ql (U)Ord ered By: Yobani Hansen on 06-13-2022 Nitrite Ql (U) Negative Negative [facility] No Panel InformationOrdered By: Yobani Hansen on 06-13-2022 Estimated GFR () 24 mL/Min [facility] Comment on above: GFR estimated refere nce range: According to KDOQI guidelines, <60 ml/min/1.73m2 is sufficient to diagnose a patient with chronic kidney disease. Pharmacy Creatinine Clearance (Chem 29.[address] [facility] Platelet mean volume Auto (B ld) [Entitic vol]Ordered By: Yobani Hansen on 06-13-2022 Platelet mean volume (Bld) [Entitic vol] 8.1 fL 6.6-10.[address] [facility] Platelet poor plasma interna tional normalized ratio (INR) by coagulation assay (relatOrdered By: Yobani Hansen on 06-13-2022 INR Coag (PPP) [Relative time] 1.0 {INR} [facility] Comment on above: INR Therapeutic Rang e A) Pre- and Peroperative OAT started two weeks before surgery. NOT HIP SURGERY: 1.5 - 2.5 HIP SURGERY: 2 - 3B) Primary and secondary prevention of venous THROMBOSIS: 2 - 3C) Active venous thrombosis, pulmonary embolismand prevention of recurrent venous thrombosis: 2 - 3D) Prevention of arterial thromboembolismincluding patients with mechanical heart valves: 3 - 4.5 Platelets Auto (Bld) [#/Vol] Ordered By: Yobani Hansen on 06-13-2022 Platelets (Bld) [#/Vol] 237 10*3/uL 150-[address] [facility] Protein Auto test strip (U) [Mass/Vol]Ordered By: Yobani Hansen on 06-13-2022 Protein (U) [Mass/Vol] 300 mg[facility]dL [facility] [Mass/volume] in Ser um or PlasmaOrdered By: Yobani Hansen on 06-13-2022 Protein [Mass/Vol] 5.9 g/dL 6.1-7.9 [facility] RBC Auto (Bld) [#/Vol]Ordere d By: Yobani Hansen on 06-13-2022 RBC (Bld) [#/Vol] 3.95 10*6/uL 3.90-5.60 [facility] Serum or plasma alanine matthwes otransferase measurement without P-5'-P (enzymatic activiOrdered By: Yobani Hansen on 06-13-2022 ALT No additional P-5'-P [Catalytic activity/Vol] 17 U/L [address] [facility] Serum or plasma albumin/glob ulin mass ratioOrdered By: Yobani Hansen on 06-13-2022 Albumin/Globulin [Mass ratio] 0.6 {ratio} [facility] Serum or plasma alkaline harriett sphatase measurement (enzymatic activity/volume)Ordered By: Yobani Hansen on 06-13-2022 ALP [Catalytic activity/Vol] 76 U/L 32-[address] [facility] Serum or plasma anion gap de terminationOrdered By: Yobani Hansen on 06-13-2022 Anion gap [Moles/Vol] 13.3 mmol/L 6.0-15.0 [facility] Serum or plasma aspartate am inotransferase measurement (enzymatic activity/volume)Ordered By: Yobani Hansen on 06-13-2022 AST [Catalytic activity/Vol] 20 U/L [address] [facility] Serum or plasma calcium farida urement (mass/volume)Ordered By: Yobani Hansen on 06-13-2022 Calcium [Mass/Vol] 8.8 mg/dL 8.2-10.2 [facility] Serum or plasma chloride trina surement (moles/volume)Ordered By: Yobani Hansen on 06-13-2022 Chloride [Moles/Vol] 105 mmol/L 95-114 [facility] Serum or plasma glucose farida urement (mass/volume)Ordered By: Yobani Hansen on 06-13-2022 Glucose [Mass/Vol] 163 mg/dL 70-100 [facility] Comment on above: ADA recommended refe rence rangeRandom Glucose Reference Range is dependent on time and content of last meal. Glucose of more than 200 mg/dL in a nonstressed, ambulatory subject supports the diagnosis of Diabetes Mellitus. Serum or plasma potassium me asurement (moles/volume)Ordered By: Yobani Hansen on 06-13-2022 Potassium [Moles/Vol] 4.7 mmol/L 3.5-5.1 [facility] Serum or plasma sodium measu rement (moles/volume)Ordered By: Yobani Hansen on 06-13-2022 Sodium [Moles/Vol] 138 mmol/L 136-146 [facility] Serum or plasma total biliru bin measurement (mass/volume)Ordered By: Yobani Hansen on 06-13-2022 Bilirubin [Mass/Vol] 0.4 mg/dL 0.3-1.2 [facility] Serum or plasma total carbon dioxide measurement (moles/volume)Ordered By: Yobani Hansen on 06-13-2022 CO2 [Moles/Vol] 24.4 mmol/L 22.0-30.0 [facility] Serum or plasma urea nitroge n measurement (mass/volume)Ordered By: Yobani Hansen on 06-13-2022 Urea nitrogen [Mass/Vol] 47 mg/dL 9-[address] [facility] Specific gravity Auto test s trip (U) [Rel density]Ordered By: Yobani Hansen on 06-13-2022 Specific gravity (U) [Rel density] 1.011 1.001-1.[address] [facility] Squamous epithelial cells de tection in urine sediment by light microscopyOrdered By: Yobani Hansen on 06-13-2022 Epithelial cells.squamous LM Ql (Urine sed) 0-1 [HPF] 0-[address] [facility] Troponin I.cardiac [Mass/vol ume] in Serum or Plasma by High sensitivity methodOrdered By: Yobani Hansen on 06-13-2022 Troponin I.cardiac High sensitivity method [Mass/Vol] 49 pg/mL 0-[address] [facility] Urine bacteria detection by automated methodOrdered By: Yobani Hansen on 06-13-2022 Bacteria Auto Ql (U) None seen None Seen [facility] Urine clarity by refractomet ry automatedOrdered By: Yobani Hansen on 06-13-2022 Clarity Refractometry automated (U) Clear Clear [facility] Urine glucose measurement by automated test strip (mass/volume)Ordered By: Yobani Hansen on 06-13-2022 Glucose Auto test strip (U) [Mass/Vol] 250 mg/dL Normal [facility] Urine hemoglobin detection b y automated test stripOrdered By: Yobani Hansen on 06-13-2022 Hemoglobin Auto test strip Ql (U) 2+ Negative [facility] Urine leukocyte esterase det ection by automated test stripOrdered By: Yobani Hansen on 06-13-2022 Leukocyte esterase Auto test strip Ql (U) Negative Negative [facility] Urobilinogen Auto test strip (U) [Mass/Vol]Ordered By: Yobani Hansen on 06-13-2022 Urobilinogen (U) [Mass/Vol] Normal mg/dL Normal [facility] pH Auto test strip (U)Ordere d By: Yobani Hansen on 06-13-2022 pH (U) 6.5 [pH] 5.0-9.[address] [facility] Activated partial thrombopla stin time (aPTT) in platelet poor plasma by coagulation aOrdered By: Rishi Anderson on 06-03-2022 aPTT Coag (PPP) [Time] 41.0 s 25.1-36.5 [facility] Albumin [Mass/volume] in Ser um or PlasmaOrdered By: Rishi Anderson on 06-03-2022 Albumin [Mass/Vol] 2.0 g/dL 3.2-5.5 [facility] Basophils Auto (Bld) [#/Vol] Ordered By: Rishi Anderson on 06-03-2022 Basophils (Bld) [#/Vol] 0.1 10*3/uL 0.0-0.[address] [facility] Basophils/100 WBC Auto (Bld) Ordered By: Rishi Anderson on 06-03-2022 Basophils/100 WBC (Bld) 1.2 % . [facility] Creatine kinase [Enzymatic a ctivity/volume] in Serum or PlasmaOrdered By: Rishi Anderson on 06-03-2022 CK [Catalytic activity/Vol] 246 U/L 22-[address] [facility] Creatinine and Glomerular fi ltration rate.predicted panel (S/P/Bld)Ordered By: Risih Anderson on 06-03-2022 Creatinine [Mass/Vol] 3.27 mg/dL 0.64-1.27 [facility] Eosinophils Auto (Bld) [#/Vo l]Ordered By: Rishi Anderson on 06-03-2022 Eosinophils (Bld) [#/Vol] 0.1 10*3/uL 0.0-0.[address] [facility] Eosinophils/100 WBC Auto (Bl d)Ordered By: Rishi Anderson on 06-03-2022 Eosinophils/100 WBC (Bld) 1.9 % . [facility] Erythrocyte distribution wid th Auto (RBC) [Ratio]Ordered By: Rishi Anderson on 06-03-2022 Erythrocyte distribution width (RBC) [Ratio] 12.4 % 12.0-14.[address] [facility] Estimated glomerular filtrat ion rate (GFR) non- AmericanOrdered By: Rishi Anderson on 06-03-2022 GFR/1.73 sq M.predicted among non-blacks MDRD (S/P/Bld) [Vol rate/Area] 21 mL/Min [facility] Globulin Calc (S) [Mass/Vol] Ordered By: Rishi Anderson on 06-03-2022 Globulin (S) [Mass/Vol] 3.2 g/dL [facility] Hematocrit Auto (Bld) [Volum e fraction]Ordered By: Rishi Anderson on 06-03-2022 Hematocrit (Bld) [Volume fraction] 28.6 % 38.8-50.[address] [facility] Hemoglobin [Mass/volume] in BloodOrdered By: Rishi Anderson on 06-03-2022 Hemoglobin (Bld) [Mass/Vol] 9.9 g/dL 13.0-17.[address] [facility] - Chemistry and C hemistry - challengeOrdered By: Rishi Anderson on 06-03-2022 Natriuretic peptide B (Bld) [Mass/Vol] 569.0 pg/mL 5-[address] [facility] - CoagulationOrde red By: Rishi Anderson on 06-03-2022 PT Coag (PPP) [Time] 12.6 s 9.0-12.9 [facility] - Hematology and Cell countsOrdered By: Rishi Anderson on 06-03-2022 Nucleated RBC/100 WBC (Bld) [Ratio] 0.1 % 0-0.[address] [facility] Leukocytes [#/volume] in Blo od by Automated countOrdered By: Rishi Anderson on 06-03-2022 WBC (Bld) [#/Vol] 6.8 10*3/uL 4.5-11.0 [facility] Lymphocytes Auto (Bld) [#/Vo l]Ordered By: Rishi Anderson on 06-03-2022 Lymphocytes (Bld) [#/Vol] 1.4 10*3/uL 1.00-4.[address] [facility] Lymphocytes/100 WBC Auto (Bl d)Ordered By: Rishi Anderson on 06-03-2022 Lymphocytes/100 WBC (Bld) 21.1 % . [facility] MCH Auto (RBC) [Entitic mass ]Ordered By: Rishi Anderson on 06-03-2022 MCH (RBC) [Entitic mass] 29.3 pg 27.5-35.[address] [facility] MCHC Auto (RBC) [Mass/Vol]Or dered By: Rishi Anderson on 06-03-2022 MCHC (RBC) [Mass/Vol] 34.7 g/dL 32.5-35.6 [facility] MCV Auto (RBC) [Entitic vol] Ordered By: Rishi Anderson on 06-03-2022 MCV (RBC) [Entitic vol] 84.4 fL 83.5-101 [facility] Monocytes Auto (Bld) [#/Vol] Ordered By: Rishi Anderson on 06-03-2022 Monocytes (Bld) [#/Vol] 0.3 10*3/uL 0.0-0.[address] [facility] Monocytes/100 WBC Auto (Bld) Ordered By: Rishi Anderson on 06-03-2022 Monocytes/100 WBC (Bld) 5.1 % . [facility] Neutrophils Auto (Bld) [#/Vo l]Ordered By: Rishi Anderson on 06-03-2022 Neutrophils (Bld) [#/Vol] 4.8 10*3/uL 1.8-7.[address] [facility] Neutrophils/100 WBC Auto (Bl d)Ordered By: Rishi Anderson on 06-03-2022 Neutrophils/100 WBC (Bld) 70.7 % . [facility] No Panel InformationOrdered By: Rishi Anderson on 06-03-2022 Estimated GFR () 26 mL/Min [facility] Comment on above: GFR estimated refere nce range: According to KDOQI guidelines, <60 ml/min/1.73m2 is sufficient to diagnose a patient with chronic kidney disease. Pharmacy Creatinine Clearance (Chem 33.[address] [facility] Platelet mean volume Auto (B ld) [Entitic vol]Ordered By: Rishi Anderson on 06-03-2022 Platelet mean volume (Bld) [Entitic vol] 8.1 fL 6.6-10.[address] [facility] Platelet poor plasma interna tional normalized ratio (INR) by coagulation assay (relatOrdered By: Rishi Anderson on 06-03-2022 INR Coag (PPP) [Relative time] 1.1 {INR} [facility] Comment on above: INR Therapeutic Rang e A) Pre- and Peroperative OAT started two weeks before surgery. NOT HIP SURGERY: 1.5 - 2.5 HIP SURGERY: 2 - 3B) Primary and secondary prevention of venous THROMBOSIS: 2 - 3C) Active venous thrombosis, pulmonary embolismand prevention of recurrent venous thrombosis: 2 - 3D) Prevention of arterial thromboembolismincluding patients with mechanical heart valves: 3 - 4.5 Platelets Auto (Bld) [#/Vol] Ordered By: Rishi Anderson on 06-03-2022 Platelets (Bld) [#/Vol] 232 10*3/uL 150-[address] [facility] Protein [Mass/volume] in Ser um or PlasmaOrdered By: Rishi Anderson on 06-03-2022 Protein [Mass/Vol] 5.2 g/dL 6.1-7.9 [facility] RBC Auto (Bld) [#/Vol]Ordere d By: Rishi Anderson on 06-03-2022 RBC (Bld) [#/Vol] 3.39 10*6/uL 3.90-5.60 [facility] Serum or plasma alanine matthews otransferase measurement without P-5'-P (enzymatic activiOrdered By: Rishi Anderson on 06-03-2022 ALT No additional P-5'-P [Catalytic activity/Vol] 13 U/L 10-[address] [facility] Serum or plasma albumin/glob ulin mass ratioOrdered By: Rishi Anderson on 06-03-2022 Albumin/Globulin [Mass ratio] 0.6 {ratio} [facility] Serum or plasma alkaline harriett sphatase measurement (enzymatic activity/volume)Ordered By: Rishi Anderson on 06-03-2022 ALP [Catalytic activity/Vol] 77 U/L 32-[address] [facility] Serum or plasma anion gap de terminationOrdered By: Rishi Anderson on 06-03-2022 Anion gap [Moles/Vol] 11.6 mmol/L 6.0-15.0 [facility] Serum or plasma aspartate am inotransferase measurement (enzymatic activity/volume)Ordered By: Rishi Anderson on 06-03-2022 AST [Catalytic activity/Vol] 15 U/L 10-[address] [facility] Serum or plasma calcium farida urement (mass/volume)Ordered By: Rishi Anderson on 06-03-2022 Calcium [Mass/Vol] 7.9 mg/dL 8.2-10.2 [facility] Serum or plasma chloride trina surement (moles/volume)Ordered By: Rishi Anderson on 06-03-2022 Chloride [Moles/Vol] 101 mmol/L 95-114 [facility] Serum or plasma creatine kin ase MB (CKMB)/total creatine kinase (CK) ratio by calculaOrdered By: Rishi Anderson on 06-03-2022 CK.MB Calc [Catalytic fraction] 3.1 % 0.00-2.[address] [facility] Serum or plasma creatine kin ase MB measurement (mass/volume)Ordered By: Rishi Anderson on 06-03-2022 CK.MB [Mass/Vol] 7.7 ng/mL 0.6-6.3 [facility] Serum or plasma glucose farida urement (mass/volume)Ordered By: Rishi Anderson on 06-03-2022 Glucose [Mass/Vol] 185 mg/dL 70-100 [facility] Comment on above: ADA recommended refe rence rangeRandom Glucose Reference Range is dependent on time and content of last meal. Glucose of more than 200 mg/dL in a nonstressed, ambulatory subject supports the diagnosis of Diabetes Mellitus. Serum or plasma potassium me asurement (moles/volume)Ordered By: Rishi Anderson on 06-03-2022 Potassium [Moles/Vol] 3.7 mmol/L 3.5-5.1 [facility] Serum or plasma sodium measu rement (moles/volume)Ordered By: Rishi Anderson on 06-03-2022 Sodium [Moles/Vol] 132 mmol/L 136-146 [facility] Serum or plasma total biliru bin measurement (mass/volume)Ordered By: Rishi Anderson on 06-03-2022 Bilirubin [Mass/Vol] 0.4 mg/dL 0.3-1.2 [facility] Serum or plasma total carbon dioxide measurement (moles/volume)Ordered By: Rishi Anderson on 06-03-2022 CO2 [Moles/Vol] 23.1 mmol/L 22.0-30.0 [facility] Serum or plasma urea nitroge n measurement (mass/volume)Ordered By: Rishi Anderson on 06-03-2022 Urea nitrogen [Mass/Vol] 35 mg/dL 9-[address] [facility] Troponin I.cardiac [Mass/vol ume] in Serum or Plasma by High sensitivity methodOrdered By: Rishi Anderson on 06-03-2022 Troponin I.cardiac High sensitivity method [Mass/Vol] 44 pg/mL 0-[address] [facility] Bacterial blood cultureOrder ed By: Romain Roy on 05-26-2022 Bacteria identified Cx Nom (Bld) NO GROWTH [address] [facility] No Panel InformationOrdered By: Romain Roy on 05-22-2022 SARS Antigen (LFIA) [facility] Activated partial thrombopla stin time (aPTT) in platelet poor plasma by coagulation aOrdered By: Romain Roy on 05-21-2022 aPTT Coag (PPP) [Time] 38.0 s 25.1-36.5 [facility] Bacterial blood cultureOrder ed By: Romain Roy on 05-21-2022 Bacteria identified Cx Nom (Bld) NO GROWTH [address] [facility] Basophils Auto (Bld) [#/Vol] Ordered By: Romain Roy on 05-21-2022 Basophils (Bld) [#/Vol] 0.1 10*3/uL 0.0-0.[address] [facility] Basophils/100 WBC Auto (Bld) Ordered By: Romain Roy on 05-21-2022 Basophils/100 WBC (Bld) 1.6 % . [facility] Blood hemoglobin measurement (mass/volume)Ordered By: Romain Roy on 05-21-2022 Hemoglobin (Bld) [Mass/Vol] 11.0 g/dL 13.0-17.[address] [facility] Blood leukocytes automated c ount (number/volume)Ordered By: Romain Roy on 05-21-2022 WBC (Bld) [#/Vol] 7.6 10*3/uL 4.5-11.0 [facility] COVID-19 SOFIAOrdered By: Jenn Roy on 05-21-2022 SARS-CoV+SARS-CoV-2 (COVID-19) Ag IA.rapid Ql (Resp) Negative Negative [facility] Comment on above: This is a duplicate Jenni SARS Antigen (BARAK) result to be used for statistical tracking purpose only. Creatinine and Glomerular fi ltration rate.predicted panel (S/P/Bld)Ordered By: Romain Roy on 05-21-2022 Creatinine [Mass/Vol] 3.25 mg/dL 0.64-1.27 [facility] Eosinophils Auto (Bld) [#/Vo l]Ordered By: Romain Roy on 05-21-2022 Eosinophils (Bld) [#/Vol] 0.1 10*3/uL 0.0-0.[address] [facility] Eosinophils/100 WBC Auto (Bl d)Ordered By: Romain Roy on 05-21-2022 Eosinophils/100 WBC (Bld) 1.8 % . [facility] Erythrocyte distribution wid th Auto (RBC) [Ratio]Ordered By: Romain Roy on 05-21-2022 Erythrocyte distribution width (RBC) [Ratio] 12.6 % 12.0-14.[address] [facility] Estimated glomerular filtrat ion rate (GFR) non- AmericanOrdered By: Romain Roy on 05-21-2022 GFR/1.73 sq M.predicted among non-blacks MDRD (S/P/Bld) [Vol rate/Area] 22 mL/Min [facility] Hematocrit Auto (Bld) [Volum e fraction]Ordered By: Romain Roy on 05-21-2022 Hematocrit (Bld) [Volume fraction] 31.2 % 38.8-50.[address] [facility] Laboratory - CoagulationOrde red By: Romain Roy on 05-21-2022 PT Coag (PPP) [Time] 11.6 s 9.0-12.9 [facility] - Hematology and Cell countsOrdered By: Romain Roy on 05-21-2022 Nucleated RBC/100 WBC (Bld) [Ratio] 0.0 % 0-0.[address] [facility] Lymphocytes Auto (Bld) [#/Vo l]Ordered By: Romain Roy on 05-21-2022 Lymphocytes (Bld) [#/Vol] 1.3 10*3/uL 1.00-4.[address] [facility] Lymphocytes/100 WBC Auto (Bl d)Ordered By: Romain Roy on 05-21-2022 Lymphocytes/100 WBC (Bld) 17.4 % . [facility] MCH Auto (RBC) [Entitic mass ]Ordered By: Romain Roy on 05-21-2022 MCH (RBC) [Entitic mass] 29.6 pg 27.5-35.[address] [facility] MCHC Auto (RBC) [Mass/Vol]Or dered By: Romain Roy on 05-21-2022 MCHC (RBC) [Mass/Vol] 35.1 g/dL 32.5-35.6 [facility] MCV Auto (RBC) [Entitic vol] Ordered By: Romain Roy on 05-21-2022 MCV (RBC) [Entitic vol] 84.3 fL 83.5-101 [facility] Monocytes Auto (Bld) [#/Vol] Ordered By: Romain Roy on 05-21-2022 Monocytes (Bld) [#/Vol] 0.3 10*3/uL 0.0-0.[address] [facility] Monocytes/100 WBC Auto (Bld) Ordered By: Romain Roy on 05-21-2022 Monocytes/100 WBC (Bld) 4.5 % . [facility] Neutrophils Auto (Bld) [#/Vo l]Ordered By: Romain Roy on 05-21-2022 Neutrophils (Bld) [#/Vol] 5.7 10*3/uL 1.8-7.[address] [facility] Neutrophils/100 WBC Auto (Bl d)Ordered By: Romain Roy on 05-21-2022 Neutrophils/100 WBC (Bld) 74.7 % . [facility] No Panel InformationOrdered By: Romain Roy on 05-21-2022 Estimated GFR () 26 mL/Min [facility] Comment on above: GFR estimated refere nce range: According to KDOQI guidelines, <60 ml/min/1.73m2 is sufficient to diagnose a patient with chronic kidney disease. Pharmacy Creatinine Clearance (Chem 32.[address] [facility] SARS Antigen (LFIA) [facility] Phosphate [Mass/volume] in S gretta or PlasmaOrdered By: Romain Roy on 05-21-2022 Phosphate [Mass/Vol] 4.4 mg/dL 2.5-4.6 [facility] Platelet mean volume Auto (B ld) [Entitic vol]Ordered By: Romain Roy on 05-21-2022 Platelet mean volume (Bld) [Entitic vol] 8.4 fL 6.6-10.[address] [facility] Platelet poor plasma interna tional normalized ratio (INR) by coagulation assay (relatOrdered By: Romain Roy on 05-21-2022 INR Coag (PPP) [Relative time] 1.0 {INR} [facility] Comment on above: INR Therapeutic Rang e A) Pre- and Peroperative OAT started two weeks before surgery. NOT HIP SURGERY: 1.5 - 2.5 HIP SURGERY: 2 - 3B) Primary and secondary prevention of venous THROMBOSIS: 2 - 3C) Active venous thrombosis, pulmonary embolismand prevention of recurrent venous thrombosis: 2 - 3D) Prevention of arterial thromboembolismincluding patients with mechanical heart valves: 3 - 4.5 Platelets Auto (Bld) [#/Vol] Ordered By: Romain Roy on 05-21-2022 Platelets (Bld) [#/Vol] 216 10*3/uL 150-[address] [facility] RBC Auto (Bld) [#/Vol]Ordere d By: Romain Roy on 05-21-2022 RBC (Bld) [#/Vol] 3.71 10*6/uL 3.90-5.60 [facility] Serum or plasma anion gap de terminationOrdered By: Romain Roy on 05-21-2022 Anion gap [Moles/Vol] 13.4 mmol/L 6.0-15.0 [facility] Serum or plasma calcium farida urement (mass/volume)Ordered By: Romain Roy on 05-21-2022 Calcium [Mass/Vol] 8.3 mg/dL 8.2-10.2 [facility] Serum or plasma chloride trina surement (moles/volume)Ordered By: Romain Roy on 05-21-2022 Chloride [Moles/Vol] 99 mmol/L 95-114 [facility] Serum or plasma glucose farida urement (mass/volume)Ordered By: Romain Roy on 05-21-2022 Glucose [Mass/Vol] 396 mg/dL 70-100 [facility] Comment on above: ADA recommended refe rence rangeRandom Glucose Reference Range is dependent on time and content of last meal. Glucose of more than 200 mg/dL in a nonstressed, ambulatory subject supports the diagnosis of Diabetes Mellitus. Serum or plasma potassium me asurement (moles/volume)Ordered By: Romain Roy on 05-21-2022 Potassium [Moles/Vol] 3.3 mmol/L 3.5-5.1 [facility] Serum or plasma sodium measu rement (moles/volume)Ordered By: Romain Roy on 05-21-2022 Sodium [Moles/Vol] 132 mmol/L 136-146 [facility] Serum or plasma total biliru bin measurement (mass/volume)Ordered By: Romain Roy on 05-21-2022 Bilirubin [Mass/Vol] 0.4 mg/dL 0.3-1.2 [facility] Serum or plasma total carbon dioxide measurement (moles/volume)Ordered By: Romain Roy on 05-21-2022 CO2 [Moles/Vol] 22.9 mmol/L 22.0-30.0 [facility] Serum or plasma urea nitroge n measurement (mass/volume)Ordered By: Romain Roy on 05-21-2022 Urea nitrogen [Mass/Vol] 36 mg/dL 05-[address] [facility] Serum or plasma uric acid me asurement (mass/volume)Ordered By: Romain Roy on 05-21-2022 Urate [Mass/Vol] 6.1 mg/dL 2.6-7.2 [facility] Troponin I.cardiac [Mass/vol ume] in Serum or Plasma by High sensitivity methodOrdered By: Romain Roy on 05-21-2022 Troponin I.cardiac High sensitivity method [Mass/Vol] 49 pg/mL 0-[address] [facility] Urine lactic acid measuremen tOrdered By: Romain Roy on 05-21-2022 Lactate (U) [Moles/Vol] 0.7 mmol/L 0.5-2.2 [facility] Activated partial thrombopla stin time (aPTT) in platelet poor plasma by coagulation aOrdered By: Jorje Small on 05-18-2022 aPTT Coag (PPP) [Time] 38.8 s 25.1-36.5 [facility] Basophils Auto (Bld) [#/Vol] Ordered By: Jorje Small on 05-18-2022 Basophils (Bld) [#/Vol] 0.1 10*3/uL 0.0-0.[address] [facility] Basophils/100 WBC Auto (Bld) Ordered By: Jorje Small on 05-18-2022 Basophils/100 WBC (Bld) 1.7 % . [facility] Blood hemoglobin measurement (mass/volume)Ordered By: Jorje Small on 05-18-2022 Hemoglobin (Bld) [Mass/Vol] 10.6 g/dL 13.0-17.[address] [facility] Blood leukocytes automated c ount (number/volume)Ordered By: Jorje Small on 05-18-2022 WBC (Bld) [#/Vol] 7.6 10*3/uL 4.5-11.0 [facility] Eosinophils Auto (Bld) [#/Vo l]Ordered By: Jorje Small on 05-18-2022 Eosinophils (Bld) [#/Vol] 0.1 10*3/uL 0.0-0.[address] [facility] Eosinophils/100 WBC Auto (Bl d)Ordered By: Jorje Small on 05-18-2022 Eosinophils/100 WBC (Bld) 1.7 % . [facility] Erythrocyte distribution wid th Auto (RBC) [Ratio]Ordered By: Jorje Small on 05-18-2022 Erythrocyte distribution width (RBC) [Ratio] 12.9 % 12.0-14.[address] [facility] Hematocrit Auto (Bld) [Volum e fraction]Ordered By: Jorje Small on 05-18-2022 Hematocrit (Bld) [Volume fraction] 30.6 % 38.8-50.[address] [facility] Laboratory - CoagulationOrde red By: Jorje Small on 05-18-2022 PT Coag (PPP) [Time] 11.7 s 9.0-12.9 [facility] - Hematology and Cell countsOrdered By: Jorje Small on 05-18-2022 Nucleated RBC/100 WBC (Bld) [Ratio] 0.1 % 0-0.[address] [facility] Lymphocytes Auto (Bld) [#/Vo l]Ordered By: Jorje Small on 05-18-2022 Lymphocytes (Bld) [#/Vol] 1.0 10*3/uL 1.00-4.[address] [facility] Lymphocytes/100 WBC Auto (Bl d)Ordered By: Jorje Small on 05-18-2022 Lymphocytes/100 WBC (Bld) 13.8 % . [facility] MCH Auto (RBC) [Entitic mass ]Ordered By: Jorje Small on 05-18-2022 MCH (RBC) [Entitic mass] 29.5 pg 27.5-35.[address] [facility] MCHC Auto (RBC) [Mass/Vol]Or dered By: Jorje Small on 05-18-2022 MCHC (RBC) [Mass/Vol] 34.5 g/dL 32.5-35.6 [facility] MCV Auto (RBC) [Entitic vol] Ordered By: Jorje Small on 05-18-2022 MCV (RBC) [Entitic vol] 85.5 fL 83.5-101 [facility] Monocytes Auto (Bld) [#/Vol] Ordered By: Jorje Small on 05-18-2022 Monocytes (Bld) [#/Vol] 0.3 10*3/uL 0.0-0.[address] [facility] Monocytes/100 WBC Auto (Bld) Ordered By: Jorje Small on 05-18-2022 Monocytes/100 WBC (Bld) 4.5 % . [facility] Neutrophils Auto (Bld) [#/Vo l]Ordered By: Jorje Small on 05-18-2022 Neutrophils (Bld) [#/Vol] 5.9 10*3/uL 1.8-7.[address] [facility] Neutrophils/100 WBC Auto (Bl d)Ordered By: Jorje Small on 05-18-2022 Neutrophils/100 WBC (Bld) 78.3 % . [facility] Platelet mean volume Auto (B ld) [Entitic vol]Ordered By: Jorje Small on 05-18-2022 Platelet mean volume (Bld) [Entitic vol] 9.0 fL 6.6-10.[address] [facility] Platelet poor plasma interna tional normalized ratio (INR) by coagulation assay (relatOrdered By: Jorje Small on 05-18-2022 INR Coag (PPP) [Relative time] 1.0 {INR} [facility] Comment on above: INR Therapeutic Rang e A) Pre- and Peroperative OAT started two weeks before surgery. NOT HIP SURGERY: 1.5 - 2.5 HIP SURGERY: 2 - 3B) Primary and secondary prevention of venous THROMBOSIS: 2 - 3C) Active venous thrombosis, pulmonary embolismand prevention of recurrent venous thrombosis: 2 - 3D) Prevention of arterial thromboembolismincluding patients with mechanical heart valves: 3 - 4.5 Platelets Auto (Bld) [#/Vol] Ordered By: Jorje Small on 05-18-2022 Platelets (Bld) [#/Vol] 215 10*3/uL 150-[address] [facility] RBC Auto (Bld) [#/Vol]Ordere d By: Jorje Small on 05-18-2022 RBC (Bld) [#/Vol] 3.58 10*6/uL 3.90-5.60 [facility] Albumin [Mass/volume] in Ser um or PlasmaOrdered By: Angel Mejía on 04-20-2022 Albumin [Mass/Vol] 2.5 g/dL 2.9-4.4 [facility] Albumin/Protein.total in 24 hour Urine by ElectrophoresisOrdered By: Angel Mejía on 04-20-2022 Albumin Elph (24H U) [Mass fraction] 78.6 % . [facility] Blood hemoglobin measurement (mass/volume)Ordered By: Angel Mejía on 04-20-2022 Hemoglobin (Bld) [Mass/Vol] 9.5 g/dL 13.0-17.[address] [facility] Body fluid albumin measureme nt (mass/volume)Ordered By: Angel Mejía on 04-20-2022 Albumin (Body fld) [Mass/Vol] 2.2 g/dL 3.2-5.[address] [facility] CT biopsyOrdered By: Varsha ricardo on 04-20-2022 CT biopsy See comment [id number] [facility] Comment on above: TESTING SENT TO [facility] ORP SEE REPORT TESTING SENT TO [facility] ORPSEE REPORT Creatinine [Mass/volume] in UrineOrdered By: Angel Mejía on 04-20-2022 Creatinine (U) [Mass/Vol] 160.7 mg/dL [facility] Comment on above: No reference range e stablished Creatinine and Glomerular fi ltration rate.predicted panel (S/P/Bld)Ordered By: Angel Mejía on 04-20-2022 Creatinine [Mass/Vol] 3.18 mg/dL 0.64-1.27 [facility] Erythrocyte distribution wid th Auto (RBC) [Ratio]Ordered By: Angel Mejía on 04-20-2022 Erythrocyte distribution width (RBC) [Ratio] 13.1 % 12.0-14.[address] [facility] Estimated glomerular filtrat ion rate (GFR) non- AmericanOrdered By: Angel Mejía on 04-20-2022 GFR/1.73 sq M.predicted among non-blacks MDRD (S/P/Bld) [Vol rate/Area] 22 mL/Min [facility] Ferritin [Mass/volume] in Se rum or PlasmaOrdered By: Angel Mejía on 04-20-2022 Ferritin [Mass/Vol] 119.5 ng/mL 23.9-336.2 [facility] Gamma globulin/Protein.total in 24 hour Urine by ElectrophoresisOrdered By: Angel Mejía on 04-20-2022 Gamma globulin Elph (24H U) [Mass fraction] 8.7 % . [facility] Hematocrit Auto (Bld) [Volum e fraction]Ordered By: Angel Mejía on 04-20-2022 Hematocrit (Bld) [Volume fraction] 27.1 % 38.8-50.[address] [facility] IgA [Mass/volume] in Serum o r PlasmaOrdered By: Angel Mejía on 04-20-2022 IgA [Mass/Vol] 310 mg/dL 90-[address] [facility] IgG [Mass/volume] in Serum o r PlasmaOrdered By: Angel Mejía on 04-20-2022 IgG [Mass/Vol] 821 mg/dL 603-[address] [facility] IgM [Mass/volume] in Serum o r PlasmaOrdered By: Angel Mejía on 04-20-2022 IgM [Mass/Vol] 211 mg/dL 20-[address] [facility] Comment on above: Performed at: [facility] [place] [id number] Stemhole Borer: Pablito Alexander PhD, Phone: [phone] Performed at: [facility] [address] [id number] Director: Pablito Alexander PhD, Phone: [phone] Immunofixation for UrineOrde red By: Angel Mejía on 04-20-2022 Interpretation Immunofixation (U) [Interp] See comment . [facility] Comment on above: Immunofixation shows IgG monoclonal protein with kappa light chain specificity. Performed at: [facility] [id number] Stemhole Borer: Pablito Alexander PhD, Phone: [phone] Immunofixation shows IgG monoclonal protein with kappalight chain specificity.Performed at: [facility] [id number] Director: Pablito Alexander PhD, Phone: [phone] Immunoglobulin light chains. kappa.free [Mass/volume] in SerumOrdered By: Angel Joyce on 04-20-2022 Immunoglobulin light chains.kappa.free (S) [Mass/Vol] 112.0 mg/L 3.3-19.[address] [facility] Immunoglobulin light chains. kappa.free/Immunoglobulin light chains.lambda.free [MassOrdered By: Angel Joyce on 04-20-2022 Immunoglobulin light chains.kappa.free/Immun oglobulin light chains.lambda.free (S) [Mass ratio] 1.83 0.26-1.[address] [facility] Comment on above: Performed at: [facility] [address] [id number] Stemhole Borer: Pablito Alexander PhD, Phone: [phone] Performed at: [facility] [address] [id number] Director: Pablito Alexander PhD, Phone: [phone] Immunoglobulin light chains. lambda.free [Mass/volume] in Serum or PlasmaOrdered By: Angel Joyce on 04-20-2022 Immunoglobulin light chains.lambda.free [Mass/Vol] 61.3 mg/L 5.7-26.[address] [facility] Iron [Mass/volume] in Serum or PlasmaOrdered By: Angel Jocye on 04-20-2022 Iron [Mass/Vol] 44 ug/dL 40-[address] [facility] Iron binding capacity [Mass/ volume] in Serum or PlasmaOrdered By: Angel Joyce on 04-20-2022 Iron binding capacity [Mass/Vol] [facility] Comment on above: Test not performed Iron saturation [Mass Fracti on] in Serum or PlasmaOrdered By: Angel Joyce on 04-20-2022 Iron saturation [Mass fraction] [facility] Comment on above: Test not performed Laboratory - Chemistry and C hemistry - challengeOrdered By: Angel Mejía on 04-20-2022 Magnesium [Mass/Vol] 1.9 mg/dL 1.6-2.6 [facility] MCH Auto (RBC) [Entitic mass ]Ordered By: Angel Mejía on 04-20-2022 MCH (RBC) [Entitic mass] 30.0 pg 27.5-35.[address] [facility] MCHC Auto (RBC) [Mass/Vol]Or dered By: Angel Mejía on 04-20-2022 MCHC (RBC) [Mass/Vol] 34.9 g/dL 32.5-35.6 [facility] MCV Auto (RBC) [Entitic vol] Ordered By: Angel Mejía on 04-20-2022 MCV (RBC) [Entitic vol] 86.0 fL 83.5-101 [facility] No Panel InformationOrdered By: Angel Mejía on 04-20-2022 Estimated GFR () 27 mL/Min [facility] Comment on above: GFR estimated refere nce range: According to KDOQI guidelines, <60 ml/min/1.73m2 is sufficient to diagnose a patient with chronic kidney disease. Pharmacy Creatinine Clearance (Chem N/A [facility] Protein Electrophoresis [facility] Comment: g/dL Not Observed [facility] Comment on above: SPE shows asymmetric al gamma. Protein Electrophoresis Note See comment . [facility] Comment on above: Protein electrophore sis scan will follow via computer, mail, or manager photography delivery. Performed at: [facility] [id number] Stemhole Borer: Pablito Alexander PhD, Phone: [phone] Protein electrophore sis scan will follow via computer,mail, or manager photography delivery.Performed at: [facility] [id number] Director: Pablito Alexander PhD, Phone: [phone] Serum Immunofixation Comment: . [facility] Comment on above: Presence of monoclon al protein is unclear at this time. Suggest repeat in 3 to 6 months if clinically indicated. Presence of monoclon al protein is unclear at this time. Suggestrepeat in 3 to 6 months if clinically indicated. Miscellaneous Test See comment [facility] Comment on above: See report. Scanned copy available in EMR. Urine Random Prot Electrophor Note See comment . [facility] Comment on above: Protein electrophore sis scan will follow via computer, mail, or manager photography delivery. Performed at: [address] [id number] Stemhole Borer: Pablito Alexander PhD, Phone: [phone] Protein electrophore sis scan will follow via computer,mail, or manager photography delivery.Performed at: [facility] [employer] [id number] Director: Pablito Alexander PhD, Phone: [phone] Phosphate [Mass/volume] in S gretta or PlasmaOrdered By: Angel Mejía on 04-20-2022 Phosphate [Mass/Vol] 5.4 mg/dL 2.5-4.6 [facility] Platelet mean volume Auto (B ld) [Entitic vol]Ordered By: Angel Joyce on 04-20-2022 Platelet mean volume (Bld) [Entitic vol] 8.5 fL 6.6-10.[address] [facility] Platelets Auto (Bld) [#/Vol] Ordered By: Angel Joyce on 04-20-2022 Platelets (Bld) [#/Vol] 252 10*3/uL 150-[address] [facility] Protein [Mass/volume] in Ser um or PlasmaOrdered By: Angel Joyce on 04-20-2022 Protein [Mass/Vol] 5.5 g/dL 6.0-8.5 [facility] Protein [Mass/volume] in Uri neOrdered By: Angel Mejía on 04-20-2022 Protein (U) [Mass/Vol] 840 mg/dL 0-9 [facility] Protein (U) [Mass/Vol] 976.2 mg/dL Not Estab. [facility] Comment on above: Results confirmed on dilution. Results confirmed on dilution. Protein.monoclonal/Protein.t otal in 24 hour Urine by ElectrophoresisOrdered By: Angel Mejía on 04-20-2022 Protein.monoclonal Elph (24H U) [Mass fraction] Not observed % Not Observed [facility] RBC Auto (Bld) [#/Vol]Ordere d By: Angel Mejía on 04-20-2022 RBC (Bld) [#/Vol] 3.16 10*6/uL 3.90-5.60 [facility] Serum globulin measurement ( mass/volume)Ordered By: Angel Mejía on 04-20-2022 Globulin (S) [Mass/Vol] 3.0 g/dL 2.2-3.9 [facility] Serum or plasma albumin/glob ulin mass ratioOrdered By: Angel Mejía on 04-20-2022 Albumin/Globulin [Mass ratio] 0.8 {ratio} 0.7-1.[address] [facility] Serum or plasma alpha 1 glob ulin measurement by electrophoresis (mass/volume)Ordered By: Angel Mejía on 04-20-2022 Alpha 1 globulin Elph [Mass/Vol] 0.3 g/dL 0.0-0.[address] [facility] Serum or plasma alpha 2 glob ulin measurement by electrophoresis (mass/volume)Ordered By: Angel Mejía on 04-20-2022 Alpha 2 globulin Elph [Mass/Vol] 1.0 g/dL 0.4-1.[address] [facility] Serum or plasma anion gap de terminationOrdered By: Angel Mejía on 04-20-2022 Anion gap [Moles/Vol] 14.6 mmol/L 6.0-15.0 [facility] Serum or plasma beta globuli n measurement by electrophoresis (mass/volume)Ordered By: Angel Mejía on 04-20-2022 Beta globulin Elph [Mass/Vol] 0.8 g/dL 0.7-1.[address] [facility] Serum or plasma calcium farida urement (mass/volume)Ordered By: Angel Mejía on 04-20-2022 Calcium [Mass/Vol] 8.2 mg/dL 8.2-10.2 [facility] Serum or plasma chloride trina surement (moles/volume)Ordered By: Angel Mejía on 04-20-2022 Chloride [Moles/Vol] 102 mmol/L 95-114 [facility] Serum or plasma gamma globul in measurement by electrophoresis (mass/volume)Ordered By: Angel Mejía on 04-20-2022 Gamma globulin Elph [Mass/Vol] 0.9 g/dL 0.4-1.[address] [facility] Serum or plasma glucose farida urement (mass/volume)Ordered By: Angel Mejía on 04-20-2022 Glucose [Mass/Vol] 211 mg/dL 70-100 [facility] Comment on above: ADA recommended refe rence range Random Glucose Reference Range is dependent on time and content of last meal. Glucose of more than 200 mg/dL in a nonstressed, ambulatory subject supports the diagnosis of Diabetes Mellitus. ADA recommended refe rence rangeRandom Glucose Reference Range is dependent on time and content of last meal. Glucose of more than 200 mg/dL in a nonstressed, ambulatory subject supports the diagnosis of Diabetes Mellitus. Serum or plasma potassium me asurement (moles/volume)Ordered By: Angel Mejía on 04-20-2022 Potassium [Moles/Vol] 4.0 mmol/L 3.5-5.1 [facility] Serum or plasma sodium measu rement (moles/volume)Ordered By: Angel Mejía on 04-20-2022 Sodium [Moles/Vol] 134 mmol/L 136-146 [facility] Serum or plasma total carbon dioxide measurement (moles/volume)Ordered By: Angel Mejía on 04-20-2022 CO2 [Moles/Vol] 21.4 mmol/L 22.0-30.0 [facility] Serum or plasma urea nitroge n measurement (mass/volume)Ordered By: Angel Mejía on 04-20-2022 Urea nitrogen [Mass/Vol] 31 mg/dL 9-[address] [facility] Urine alpha 1 globulin/total protein by electrophoresisOrdered By: Angel Mejía on 04-20-2022 Alpha 1 globulin Elph (U) [Mass fraction] 0.4 % . [facility] Urine alpha 2 globulin/total protein ratio by electrophoresisOrdered By: Angel Mejía on 04-20-2022 Alpha 2 globulin Elph (U) [Mass fraction] 3.8 % . [facility] Urine beta globulin measurem ent by electrophoresis (mass/volume)Ordered By: Angel Mejía on 04-20-2022 Beta globulin Elph (U) [Mass/Vol] 8.6 % . [facility] Urine protein/creatinine rat ioOrdered By: Angel Mejía on 04-20-2022 Protein/Creatinine (U) [Ratio] 5227 mg/g{Cre} 0-[address] [facility] WBC Auto (Bld) [#/Vol]Ordere d By: Angel Mejía on 04-20-2022 WBC (Bld) [#/Vol] 7.7 10*3/uL 4.1-10.5 [facility] Troponin I.cardiac [Mass/vol ume] in Serum or Plasma by High sensitivity methodOrdered By: Hector Mann on 04-10-2022 Troponin I.cardiac High sensitivity method [Mass/Vol] 31 pg/mL 0-[address] [facility] Activated partial thrombopla stin time (aPTT) in platelet poor plasma by coagulation aOrdered By: Hector Mann on 04-09-2022 aPTT Coag (PPP) [Time] 41.2 s 25.1-36.5 [facility] Basophils Auto (Bld) [#/Vol] Ordered By: Hector Mann on 04-09-2022 Basophils (Bld) [#/Vol] 0.1 10*3/uL 0.0-0.[address] [facility] Basophils/100 WBC Auto (Bld) Ordered By: Hector Mann on 04-09-2022 Basophils/100 WBC (Bld) 1.8 % . [facility] Blood hemoglobin measurement (mass/volume)Ordered By: Hector Mann on 04-09-2022 Hemoglobin (Bld) [Mass/Vol] 9.0 g/dL 13.0-17.[address] [facility] Blood leukocytes automated c ount (number/volume)Ordered By: Hector Mann on 04-09-2022 WBC (Bld) [#/Vol] 7.1 10*3/uL 4.5-11.0 [facility] Creatinine and Glomerular fi ltration rate.predicted panel (S/P/Bld)Ordered By: Hector Mann on 04-09-2022 Creatinine [Mass/Vol] 2.63 mg/dL 0.64-1.27 [facility] Eosinophils Auto (Bld) [#/Vo l]Ordered By: Hector Mann on 04-09-2022 Eosinophils (Bld) [#/Vol] 0.2 10*3/uL 0.0-0.[address] [facility] Eosinophils/100 WBC Auto (Bl d)Ordered By: Hector Mann on 04-09-2022 Eosinophils/100 WBC (Bld) 2.4 % . [facility] Erythrocyte distribution wid th Auto (RBC) [Ratio]Ordered By: Hector Mann on 04-09-2022 Erythrocyte distribution width (RBC) [Ratio] 13.5 % 12.0-14.[address] [facility] Estimated glomerular filtrat ion rate (GFR) non- AmericanOrdered By: Hector Mann on 04-09-2022 GFR/1.73 sq M.predicted among non-blacks MDRD (S/P/Bld) [Vol rate/Area] 28 mL/Min [facility] Hematocrit Auto (Bld) [Volum e fraction]Ordered By: Hector Mann on 04-09-2022 Hematocrit (Bld) [Volume fraction] 25.8 % 38.8-50.[address] [facility] Laboratory - Chemistry and C hemistry - challengeOrdered By: Hector Mann on 04-09-2022 Natriuretic peptide B (Bld) [Mass/Vol] 808.0 pg/mL 5-[address] [facility] Laboratory - CoagulationOrde red By: Hector Mann on 04-09-2022 PT Coag (PPP) [Time] 12.2 s 9.0-12.9 [facility] - Hematology and Cell countsOrdered By: Hector Mann on 04-09-2022 Nucleated RBC/100 WBC (Bld) [Ratio] 0.0 % 0-0.[address] [facility] Lymphocytes Auto (Bld) [#/Vo l]Ordered By: Hector Mann on 04-09-2022 Lymphocytes (Bld) [#/Vol] 1.6 10*3/uL 1.00-4.[address] [facility] Lymphocytes/100 WBC Auto (Bl d)Ordered By: Hector Mann on 04-09-2022 Lymphocytes/100 WBC (Bld) 21.8 % . [facility] MCH Auto (RBC) [Entitic mass ]Ordered By: Hector Mann on 04-09-2022 MCH (RBC) [Entitic mass] 30.0 pg 27.5-35.[address] [facility] MCHC Auto (RBC) [Mass/Vol]Or dered By: Hector Mann on 04-09-2022 MCHC (RBC) [Mass/Vol] 34.9 g/dL 32.5-35.6 [facility] MCV Auto (RBC) [Entitic vol] Ordered By: Hector Mann on 04-09-2022 MCV (RBC) [Entitic vol] 86.0 fL 83.5-101 [facility] Monocytes Auto (Bld) [#/Vol] Ordered By: Hector Mann on 04-09-2022 Monocytes (Bld) [#/Vol] 0.3 10*3/uL 0.0-0.[address] [facility] Monocytes/100 WBC Auto (Bld) Ordered By: Hector Mann on 04-09-2022 Monocytes/100 WBC (Bld) 4.5 % . [facility] Neutrophils Auto (Bld) [#/Vo l]Ordered By: Hector Mann on 04-09-2022 Neutrophils (Bld) [#/Vol] 4.9 10*3/uL 1.8-7.[address] [facility] Neutrophils/100 WBC Auto (Bl d)Ordered By: Hector Mann on 04-09-2022 Neutrophils/100 WBC (Bld) 69.5 % . [facility] No Panel InformationOrdered By: Hector Mann on 04-09-2022 Estimated GFR () 33 mL/Min [facility] Comment on above: GFR estimated refere nce range: According to KDOQI guidelines, <60 ml/min/1.73m2 is sufficient to diagnose a patient with chronic kidney disease. Pharmacy Creatinine Clearance (Chem 41.[address] [facility] Platelet mean volume Auto (B ld) [Entitic vol]Ordered By: Hector Mann on 04-09-2022 Platelet mean volume (Bld) [Entitic vol] 7.9 fL 6.6-10.[address] [facility] Platelet poor plasma interna tional normalized ratio (INR) by coagulation assay (relatOrdered By: Hector Mann on 04-09-2022 INR Coag (PPP) [Relative time] 1.1 {INR} [facility] Comment on above: INR Therapeutic Rang e A) Pre- and Peroperative OAT started two weeks before surgery. NOT HIP SURGERY: 1.5 - 2.5 HIP SURGERY: 2 - 3 B) Primary and secondary prevention of venous THROMBOSIS: 2 - 3 C) Active venous thrombosis, pulmonary embolism and prevention of recurrent venous thrombosis: 2 - 3 D) Prevention of arterial thromboembolism including patients with mechanical heart valves: 3 - 4.5 INR Therapeutic Rang e A) Pre- and Peroperative OAT started two weeks before surgery. NOT HIP SURGERY: 1.5 - 2.5 HIP SURGERY: 2 - 3B) Primary and secondary prevention of venous THROMBOSIS: 2 - 3C) Active venous thrombosis, pulmonary embolismand prevention of recurrent venous thrombosis: 2 - 3D) Prevention of arterial thromboembolismincluding patients with mechanical heart valves: 3 - 4.5 Platelets Auto (Bld) [#/Vol] Ordered By: Hector Mann on 04-09-2022 Platelets (Bld) [#/Vol] 215 10*3/uL 150-[address] [facility] RBC Auto (Bld) [#/Vol]Ordere d By: Hector Mann on 04-09-2022 RBC (Bld) [#/Vol] 3.00 10*6/uL 3.90-5.60 [facility] Serum or plasma calcium farida urement (mass/volume)Ordered By: Hector Mann on 04-09-2022 Calcium [Mass/Vol] 8.0 mg/dL 8.2-10.2 [facility] Serum or plasma chloride trina surement (moles/volume)Ordered By: Hector Mann on 04-09-2022 Chloride [Moles/Vol] 104 mmol/L 95-114 [facility] Serum or plasma glucose farida urement (mass/volume)Ordered By: Hector Mann on 04-09-2022 Glucose [Mass/Vol] 236 mg/dL 70-100 [facility] Comment on above: ADA recommended refe rence range Random Glucose Reference Range is dependent on time and content of last meal. Glucose of more than 200 mg/dL in a nonstressed, ambulatory subject supports the diagnosis of Diabetes Mellitus. ADA recommended refe rence rangeRandom Glucose Reference Range is dependent on time and content of last meal. Glucose of more than 200 mg/dL in a nonstressed, ambulatory subject supports the diagnosis of Diabetes Mellitus. Serum or plasma potassium me asurement (moles/volume)Ordered By: Hector Mann on 04-09-2022 Potassium [Moles/Vol] 3.7 mmol/L 3.5-5.1 [facility] Serum or plasma sodium measu rement (moles/volume)Ordered By: Hector Mann on 04-09-2022 Sodium [Moles/Vol] 134 mmol/L 136-146 [facility] Serum or plasma total carbon dioxide measurement (moles/volume)Ordered By: Hector Mann on 04-09-2022 CO2 [Moles/Vol] 21.8 mmol/L 22.0-30.0 [facility] Serum or plasma urea nitroge n measurement (mass/volume)Ordered By: Hector Mann on 04-09-2022 Urea nitrogen [Mass/Vol] 31 mg/dL 9-[address] [facility] Automated erythrocytes count in urine sediment (number/area)Ordered By: Angel Mejía on 03-13-2022 RBC Auto (Urine sed) [#/Area] 20-49 [HPF] 0-[address] [facility] Automated leukocytes count i n urine sediment (number/area)Ordered By: Angel Mejía on 03-13-2022 WBC Auto (Urine sed) [#/Area] 1-2 [HPF] 0-[address] [facility] Bilirubin Test strip Ql (U)O rdered By: Angel Mejía on 03-13-2022 Bilirubin Ql (U) Negative Negative [facility] Blood hemoglobin measurement (mass/volume)Ordered By: Angel Mejía on 03-13-2022 Hemoglobin (Bld) [Mass/Vol] 9.5 g/dL 13.0-17.[address] [facility] Body fluid albumin measureme nt (mass/volume)Ordered By: Angel Mejía on 03-13-2022 Albumin (Body fld) [Mass/Vol] 2.1 g/dL 3.2-5.[address] [facility] CT biopsyOrdered By: Varsha ricardo on 03-13-2022 Transferrin [Mass/Vol] 140 mg/dL 180-[facility] Color Auto (U)Ordered By: Ab yusra Mejía on 03-13-2022 Color (U) Yellow Yellow [facility] Creatinine [Mass/volume] in UrineOrdered By: Angel Mejía on 03-13-2022 Creatinine (U) [Mass/Vol] 54.4 mg/dL [facility] Comment on above: No reference range e stablished Creatinine and Glomerular fi ltration rate.predicted panel (S/P/Bld)Ordered By: Angel Mejía on 03-13-2022 Creatinine [Mass/Vol] 3.06 mg/dL 0.64-1.27 [facility] Erythrocyte distribution wid th Auto (RBC) [Ratio]Ordered By: Angel Mejía on 03-13-2022 Erythrocyte distribution width (RBC) [Ratio] 13.4 % 12.0-14.[address] [facility] Estimated glomerular filtrat ion rate (GFR) non- AmericanOrdered By: Angel Mejía on 03-13-2022 GFR/1.73 sq M.predicted among non-blacks MDRD (S/P/Bld) [Vol rate/Area] 23 mL/Min [facility] Ferritin [Mass/volume] in Se rum or PlasmaOrdered By: Angel Mejía on 03-13-2022 Ferritin [Mass/Vol] 118.8 ng/mL 23.9-336.2 [facility] Folate [Mass/volume] in Seru m or PlasmaOrdered By: Rolando Olivares on 03-13-2022 Folate [Mass/Vol] 7.9 ng/mL >5.9 [facility] Comment on above: Folate reference ran ge: >5.9 ng/ml The WHO technical consultation on folate and vitamin b12 deficiencies has determined that folate concentrations less than 4 ng/ml are considered deficient. Folate reference ran ge: >5.9 ng/mlThe WHO technical consultation on folate and vitamin [id number] has determined that folate concentrations lessthan 4 ng/ml are considered deficient. Hematocrit Auto (Bld) [Volum e fraction]Ordered By: Angel Mejía on 03-13-2022 Hematocrit (Bld) [Volume fraction] 27.7 % 38.8-50.[address] [facility] Immunoglobulin light chains. kappa.free [Mass/volume] in SerumOrdered By: Angel Joyce on 03-13-2022 Immunoglobulin light chains.kappa.free (S) [Mass/Vol] 124.5 mg/L 3.3-19.[address] [facility] Immunoglobulin light chains. kappa.free/Immunoglobulin light chains.lambda.free [MassOrdered By: Angel Joyce on 03-13-2022 Immunoglobulin light chains.kappa.free/Immun oglobulin light chains.lambda.free (S) [Mass ratio] 2.13 0.26-1.[address] [facility] Comment on above: Performed at[facility] [place] [id number] Stemhole Borer: Pablito Alexander PhD, Phone: [phone] Performed at: [facility] [place] [address]Lab Director: Pablito Alexander PhD, Phone: [phone] Immunoglobulin light chains. lambda.free [Mass/volume] in Serum or PlasmaOrdered By: Angel Joyce on 03-13-2022 Immunoglobulin light chains.lambda.free [Mass/Vol] 58.4 mg/L 5.7-26.[address] [facility] Iron [Mass/volume] in Serum or PlasmaOrdered By: Angel Joyce on 03-13-2022 Iron [Mass/Vol] 44 ug/dL 40-[address] [facility] Iron binding capacity [Mass/ volume] in Serum or PlasmaOrdered By: Angel Joyce on 03-13-2022 Iron binding capacity [Mass/Vol] 196 ug/dL 255-[address] [facility] Iron saturation [Mass Fracti on] in Serum or PlasmaOrdered By: Angel Joyce on 03-13-2022 Iron saturation [Mass fraction] 22.0 % 20-[address] [facility] Ketones Auto test strip (U) [Mass/Vol]Ordered By: Angel Joyce on 03-13-2022 Ketones (U) [Mass/Vol] Negative [facility] - Chemistry and C hemistry - challengeOrdered By: Rolando Olivares on 03-13-2022 Cobalamin (Vitamin B12) [Mass/Vol] 580 pg/mL 180-[address] [facility] Laboratory - Chemistry and C hemistry - challengeOrdered By: Angel Mejía on 03-13-2022 Magnesium [Mass/Vol] 1.9 mg/dL 1.6-2.6 [facility] - UrinalysisOrder ed By: Angel Mejía on 03-13-2022 Hyaline casts LM Ql (Urine sed) 0-8 [LPF] 0-[address] [facility] MCH Auto (RBC) [Entitic mass ]Ordered By: Angel Mejía on 03-13-2022 MCH (RBC) [Entitic mass] 29.8 pg 27.5-35.[address] [facility] MCHC Auto (RBC) [Mass/Vol]Or dered By: Angel Mejía on 03-13-2022 MCHC (RBC) [Mass/Vol] 34.2 g/dL 32.5-35.6 [facility] MCV Auto (RBC) [Entitic vol] Ordered By: Angel Mejía on 03-13-2022 MCV (RBC) [Entitic vol] 87.3 fL 83.5-101 [facility] Nitrite Test strip Ql (U)Ord ered By: Angel Mejía on 03-13-2022 Nitrite Ql (U) Negative Negative [facility] No Panel InformationOrdered By: Angel Mejía on 03-13-2022 25-Hydroxy Vitamin D Total < 7.0 ng/mL 30-[address] [facility] Comment on above: VITAMIN D STATUS 25( [place])VITAMIN D RANGE (ng/mL) Deficient <20 Insufficient 20 to <30 Sufficient 30 to 100 Reference: Vanna BULLARD,Chem[employer] [place], Sergey SIMENTAL, et al. Evaluation,treatment, and prevention of vitamin D deficiency; an Endocrine Society clinical practice guideline. JCEM. 2010; 96(7):1911-30. VITAMIN D STATUS 25( [place])VITAMIN D RANGE (ng/mL) Deficient <20 Insufficient 20 to <30Sufficient 30 to 100Reference: Vanna MF,Chem[employer] NC, Sergey SIMENTAL, et al. Evaluation,treatment, and prevention of vitamin D deficiency; an Endocrine Society clinical practice guideline. JCEM. 2010; 96(7):1911-30. Estimated GFR () 28 mL/Min [facility] Comment on above: GFR estimated refere nce range: According to KDOQI guidelines, <60 ml/min/1.73m2 is sufficient to diagnose a patient with chronic kidney disease. Pharmacy Creatinine Clearance (Chem N/A [facility] Phosphate [Mass/volume] in S gretta or PlasmaOrdered By: Angel Mejía on 03-13-2022 Phosphate [Mass/Vol] 4.5 mg/dL 2.5-4.6 [facility] Platelet mean volume Auto (B ld) [Entitic vol]Ordered By: Angel Georger on 03-13-2022 Platelet mean volume (Bld) [Entitic vol] 8.5 fL 6.6-10.[address] [facility] Platelets Auto (Bld) [#/Vol] Ordered By: Angel Mejía on 03-13-2022 Platelets (Bld) [#/Vol] 232 10*3/uL 150-[address] [facility] Protein Auto test strip (U) [Mass/Vol]Ordered By: Angel Mejía on 03-13-2022 Protein (U) [Mass/Vol] 300 mg/dL Negative Fi [facility] Protein [Mass/volume] in Uri neOrdered By: Angel Joyce on 03-13-2022 Protein (U) [Mass/Vol] 408 mg/dL 0-9 [facility] RBC Auto (Bld) [#/Vol]Ordere d By: Angel Joyce on 03-13-2022 RBC (Bld) [#/Vol] 3.17 10*6/uL 3.90-5.60 [facility] Serum or plasma calcium farida urement (mass/volume)Ordered By: Angel Cortezdir on 03-13-2022 Calcium [Mass/Vol] 8.4 mg/dL 8.2-10.2 [facility] Serum or plasma chloride trina surement (moles/volume)Ordered By: Angel Mejía on 03-13-2022 Chloride [Moles/Vol] 105 mmol/L 95-114 [facility] Serum or plasma glucose farida urement (mass/volume)Ordered By: Angel Mejía on 03-13-2022 Glucose [Mass/Vol] 163 mg/dL 70-100 [facility] Comment on above: ADA recommended refe rence range Random Glucose Reference Range is dependent on time and content of last meal. Glucose of more than 200 mg/dL in a nonstressed, ambulatory subject supports the diagnosis of Diabetes Mellitus. ADA recommended refe rence rangeRandom Glucose Reference Range is dependent on time and content of last meal. Glucose of more than 200 mg/dL in a nonstressed, ambulatory subject supports the diagnosis of Diabetes Mellitus. Serum or plasma intact parat hyroid hormone measurement (mass/volume)Ordered By: Angel Mejía on 03-13-2022 Parathyrin.intact [Mass/Vol] 164.8 pg/mL 12-[address] [facility] Serum or plasma methylmalona te measurement (moles/volume)Ordered By: Rolando Olivares on 03-13-2022 Methylmalonate [Moles/Vol] 2205 nmol/L 0-[address] [facility] Comment on above: This test was develo ped and its performance characteristics determined by [employer]. It has not been cleared or approved by the Food and Drug Administration. Performed at: [facility] [employer] [id number] Stem[employer] Borer: Saulo Araujo MD, Phone: [phone] This test was develo ped and its performance characteristicsdetermined by [employer]. It has not been cleared orapproved by the Food and Drug Administration.Performed at: [facility] [employer] [id number] Director: Saulo Araujo MD, Phone: [phone] Serum or plasma potassium me asurement (moles/volume)Ordered By: Angel Mejía on 03-13-2022 Potassium [Moles/Vol] 4.9 mmol/L 3.5-5.1 [facility] Serum or plasma sodium measu rement (moles/volume)Ordered By: Angel Mejía on 03-13-2022 Sodium [Moles/Vol] 135 mmol/L 136-146 [facility] Serum or plasma total carbon dioxide measurement (moles/volume)Ordered By: Angel Mejía on 03-13-2022 CO2 [Moles/Vol] 24.2 mmol/L 22.0-30.0 [facility] Serum or plasma urea nitroge n measurement (mass/volume)Ordered By: Angel Mejía on 03-13-2022 Urea nitrogen [Mass/Vol] 37 mg/dL 9- [facility] Serum or plasma uric acid me asurement (mass/volume)Ordered By: Angel Mejía on 03-13-2022 Urate [Mass/Vol] 5.8 mg/dL 2.6-7.2 [facility] Specific gravity Auto test s trip (U) [Rel density]Ordered By: Angel Mejía on 03-13-2022 Specific gravity (U) [Rel density] 1.012 1.001-1.[address] [facility] Squamous epithelial cells de tection in urine sediment by light microscopyOrdered By: Angel Mejía on 03-13-2022 Epithelial cells.squamous LM Ql (Urine sed) 0-1 [HPF] 0-[address] [facility] Urine bacteria detection by automated methodOrdered By: Angel Mejía on 03-13-2022 Bacteria Auto Ql (U) None seen None Seen [facility] Urine clarity by refractomet ry automatedOrdered By: Angel Mejía on 03-13-2022 Clarity Refractometry automated (U) Clear Clear [facility] Urine glucose measurement by automated test strip (mass/volume)Ordered By: Angel Mejía on 03-13-2022 Glucose Auto test strip (U) [Mass/Vol] 500 mg/dL Normal [facility] Urine hemoglobin detection b y automated test stripOrdered By: Angel Mejía on 03-13-2022 Hemoglobin Auto test strip Ql (U) 1+ Negative [facility] Urine leukocyte esterase det ection by automated test stripOrdered By: Angel Mejía on 03-13-2022 Leukocyte esterase Auto test strip Ql (U) Negative Negative [facility] Urine protein/creatinine rat ioOrdered By: Angel Mejía on 03-13-2022 Protein/Creatinine (U) [Ratio] 7500 mg/g{Cre} 0-[address] [facility] Urobilinogen Auto test strip (U) [Mass/Vol]Ordered By: Angel Mejía on 03-13-2022 Urobilinogen (U) [Mass/Vol] Normal mg/dL Normal [facility] WBC Auto (Bld) [#/Vol]Ordere d By: Angel Mejía on 03-13-2022 WBC (Bld) [#/Vol] 7.6 10*3/uL 4.1-10.5 [facility] pH Auto test strip (U)Ordere d By: Angel Mejía on 03-13-2022 pH (U) 6.0 [pH] 5.0-9.[address] [facility] Basophils Auto (Bld) [#/Vol] Ordered By: Rolando Olivares on 03-09-2022 Basophils (Bld) [#/Vol] 0.1 10*3/uL 0.0-0.[address] [facility] Basophils/100 WBC Auto (Bld) Ordered By: Rolando Olivares on 03-09-2022 Basophils/100 WBC (Bld) 1.4 % . [facility] Blood hemoglobin measurement (mass/volume)Ordered By: Rolando Olivares on 03-09-2022 Hemoglobin (Bld) [Mass/Vol] 9.4 g/dL 13.0-17.[address] [facility] Blood leukocytes automated c ount (number/volume)Ordered By: Rolando Olivares on 03-09-2022 WBC (Bld) [#/Vol] 6.4 10*3/uL 4.5-11.0 [facility] Creatinine and Glomerular fi ltration rate.predicted panel (S/P/Bld)Ordered By: Rolando Olivares on 03-09-2022 Creatinine [Mass/Vol] 2.87 mg/dL 0.64-1.27 [facility] Eosinophils Auto (Bld) [#/Vo l]Ordered By: Rolando Olivares on 03-09-2022 Eosinophils (Bld) [#/Vol] 0.1 10*3/uL 0.0-0.[address] [facility] Eosinophils/100 WBC Auto (Bl d)Ordered By: Rolando Olivares on 03-09-2022 Eosinophils/100 WBC (Bld) 2.2 % . [facility] Erythrocyte distribution wid th Auto (RBC) [Ratio]Ordered By: Rolando Olivares on 03-09-2022 Erythrocyte distribution width (RBC) [Ratio] 13.5 % 12.0-14.[address] [facility] Estimated glomerular filtrat ion rate (GFR) non- AmericanOrdered By: Rolando Olivares on 03-09-2022 GFR/1.73 sq M.predicted among non-blacks MDRD (S/P/Bld) [Vol rate/Area] 25 mL/Min [facility] Glucose mean value [Mass/vol ume] in Blood Estimated from glycated hemoglobinOrdered By: Rolando Olivares on 03-09-2022 Average glucose Estimated from glycated hemoglobin (Bld) [Mass/Vol] 189 mg/dL [facility] Hematocrit Auto (Bld) [Volum e fraction]Ordered By: Rolando Olivares on 03-09-2022 Hematocrit (Bld) [Volume fraction] 27.1 % 38.8-50.[address] [facility] Hemoglobin A1c percentageOrd ered By: Rolando Olivares on 03-09-2022 HbA1c (Bld) [Mass fraction] 8.2 % 4.3-5.[address] [facility] Comment on above: Increased risk for d iabetes: 5.7 - 6.4 diabetes: >6.4 glycemic control for adults with diabetes: <7.0 Increased risk for d iabetes: 5.7 - 6.4diabetes: >6.4glycemic control for adults with diabetes: <7.0 Laboratory - Hematology and Cell countsOrdered By: Rolando Olivares on 03-09-2022 Nucleated RBC/100 WBC (Bld) [Ratio] 0.0 % 0-0.[address] [facility] Lymphocytes Auto (Bld) [#/Vo l]Ordered By: Rolando Olivares on 03-09-2022 Lymphocytes (Bld) [#/Vol] 1.3 10*3/uL 1.00-4.[address] [facility] Lymphocytes/100 WBC Auto (Bl d)Ordered By: Rolando Olivares on 03-09-2022 Lymphocytes/100 WBC (Bld) 20.2 % . [facility] MCH Auto (RBC) [Entitic mass ]Ordered By: Rolando Olivares on 03-09-2022 MCH (RBC) [Entitic mass] 30.0 pg 27.5-35.[address] [facility] MCHC Auto (RBC) [Mass/Vol]Or dered By: Rolando Olivares on 03-09-2022 MCHC (RBC) [Mass/Vol] 34.7 g/dL 32.5-35.6 [facility] MCV Auto (RBC) [Entitic vol] Ordered By: Rolando Olivares on 03-09-2022 MCV (RBC) [Entitic vol] 86.4 fL 83.5-101 [facility] Monocytes Auto (Bld) [#/Vol] Ordered By: Rolando Olivares on 03-09-2022 Monocytes (Bld) [#/Vol] 0.3 10*3/uL 0.0-0.[address] [facility] Monocytes/100 WBC Auto (Bld) Ordered By: Rolando Olivares on 03-09-2022 Monocytes/100 WBC (Bld) 5.2 % . [facility] Neutrophils Auto (Bld) [#/Vo l]Ordered By: Rolando Olivares on 03-09-2022 Neutrophils (Bld) [#/Vol] 4.6 10*3/uL 1.8-7.[address] [facility] Neutrophils/100 WBC Auto (Bl d)Ordered By: Rolando Olivares on 03-09-2022 Neutrophils/100 WBC (Bld) 71.0 % . [facility] No Panel InformationOrdered By: Rolando Olivares on 03-09-2022 Estimated GFR () 30 mL/Min [facility] Comment on above: GFR estimated refere nce range: According to KDOQI guidelines, <60 ml/min/1.73m2 is sufficient to diagnose a patient with chronic kidney disease. Pharmacy Creatinine Clearance (Chem N/A [facility] Platelet mean volume Auto (B ld) [Entitic vol]Ordered By: Rolando Olivares on 03-09-2022 Platelet mean volume (Bld) [Entitic vol] 8.5 fL 6.6-10.[address] [facility] Platelets Auto (Bld) [#/Vol] Ordered By: Rolando Olivares on 03-09-2022 Platelets (Bld) [#/Vol] 209 10*3/uL 150-[address] [facility] RBC Auto (Bld) [#/Vol]Ordere d By: Rolando Olivares on 03-09-2022 RBC (Bld) [#/Vol] 3.14 10*6/uL 3.90-5.60 [facility] Serum or plasma calcium farida urement (mass/volume)Ordered By: Rolando Olivares on 03-09-2022 Calcium [Mass/Vol] 8.1 mg/dL 8.2-10.2 [facility] Serum or plasma chloride trina surement (moles/volume)Ordered By: Rolando Olivares on 03-09-2022 Chloride [Moles/Vol] 105 mmol/L 95-114 [facility] Serum or plasma glucose farida urement (mass/volume)Ordered By: Rolando Olivares on 03-09-2022 Glucose [Mass/Vol] 237 mg/dL 70-100 [facility] Comment on above: ADA recommended refe rence range Random Glucose Reference Range is dependent on time and content of last meal. Glucose of more than 200 mg/dL in a nonstressed, ambulatory subject supports the diagnosis of Diabetes Mellitus. ADA recommended refe rence rangeRandom Glucose Reference Range is dependent on time and content of last meal. Glucose of more than 200 mg/dL in a nonstressed, ambulatory subject supports the diagnosis of Diabetes Mellitus. Serum or plasma potassium me asurement (moles/volume)Ordered By: Rolando Olivares on 03-09-2022 Potassium [Moles/Vol] 4.2 mmol/L 3.5-5.1 [facility] Serum or plasma sodium measu rement (moles/volume)Ordered By: Rolando Olivares on 03-09-2022 Sodium [Moles/Vol] 137 mmol/L 136-146 [facility] Serum or plasma total carbon dioxide measurement (moles/volume)Ordered By: Rolando Olivares on 03-09-2022 CO2 [Moles/Vol] 24.6 mmol/L 22.0-30.0 [facility] Serum or plasma urea nitroge n measurement (mass/volume)Ordered By: Rolando Olivares on 03-09-2022 Urea nitrogen [Mass/Vol] 39 mg/dL 9- [facility] Activated partial thrombopla stin time (aPTT) in platelet poor plasma by coagulation aOrdered By: Angel Mejía on 12-25-2021 aPTT Coag (PPP) [Time] 39.1 s 25.1-36.5 [facility] Albumin [Mass/volume] in Ser um or PlasmaOrdered By: Angel Mejía on 12-25-2021 Albumin [Mass/Vol] 2.1 g/dL 3.2-5.5 [facility] Albumin [Mass/Vol] 2.3 g/dL 2.9-4.4 [facility] Albumin/Protein.total in 24 hour Urine by ElectrophoresisOrdered By: Angel Mejía on 12-25-2021 Albumin Elph (24H U) [Mass fraction] 64.4 % . [facility] Automated erythrocytes count in urine sediment (number/area)Ordered By: Angel Mejía on 12-25-2021 RBC Auto (Urine sed) [#/Area] 20-49 [HPF] 0-[address] [facility] Automated leukocytes count i n urine sediment (number/area)Ordered By: Angel Mejía on 12-25-2021 WBC Auto (Urine sed) [#/Area] 3-4 [HPF] 0-[address] [facility] Bilirubin Test strip Ql (U)O rdered By: Angel Mejía on 12-25-2021 Bilirubin Ql (U) Negative Negative [facility] Blood hemoglobin measurement (mass/volume)Ordered By: Angel Mejía on 12-25-2021 Hemoglobin (Bld) [Mass/Vol] 10.6 g/dL 13.0-17.[address] [facility] CT biopsyOrdered By: Varsha ricardo on 12-25-2021 Transferrin [Mass/Vol] 138 mg/dL 180-380 [facility] Color Auto (U)Ordered By: Ab yusra Mejía on 12-25-2021 Color (U) Yellow Yellow [facility] Creatinine and Glomerular fi ltration rate.predicted panel (S/P/Bld)Ordered By: Angel Mejía on 12-25-2021 Creatinine [Mass/Vol] 2.03 mg/dL 0.64-1.27 [facility] Erythrocyte distribution wid th Auto (RBC) [Ratio]Ordered By: Angel Mejía on 12-25-2021 Erythrocyte distribution width (RBC) [Ratio] 12.9 % 12.0-14.[address] [facility] Estimated glomerular filtrat ion rate (GFR) non- AmericanOrdered By: Angel Mejía on 12-25-2021 GFR/1.73 sq M.predicted among non-blacks MDRD (S/P/Bld) [Vol rate/Area] 37 mL/Min [facility] Ferritin [Mass/volume] in Se rum or PlasmaOrdered By: Angel Mejía on 12-25-2021 Ferritin [Mass/Vol] 165.7 ng/mL 23.9-336.2 [facility] Folate [Mass/volume] in Seru m or PlasmaOrdered By: Angel Mejía on 12-25-2021 Folate [Mass/Vol] 11.1 ng/mL >5.9 [facility] Comment on above: Folate reference ran ge: >5.9 ng/ml The WHO technical consultation on folate and vitamin b12 deficiencies has determined that folate concentrations less than 4 ng/ml are considered deficient. Gamma globulin/Protein.total in 24 hour Urine by ElectrophoresisOrdered By: Angel Mejía on 12-25-2021 Gamma globulin Elph (24H U) [Mass fraction] 10.4 % . [facility] Hematocrit Auto (Bld) [Volum e fraction]Ordered By: Angel Mejía on 12-25-2021 Hematocrit (Bld) [Volume fraction] 30.1 % 38.8-50.[address] [facility] Hepatitis B virus surface Ag [Presence] in Serum or Plasma by ImmunoassayOrdered By: Angel Mejía on 12-25-2021 HBV surface Ag IA Ql Negative Negative [facility] Comment on above: Performed at: [facility] [address] [id number] [employer]em[employer]orer: Pablito Alexander PhD, Phone: [phone] IgA [Mass/volume] in Serum o r PlasmaOrdered By: Angel Mejía on 12-25-2021 IgA [Mass/Vol] 373 mg/dL 90-[address] [facility] IgG [Mass/volume] in Serum o r PlasmaOrdered By: Angel Mejía on 12-25-2021 IgG [Mass/Vol] 801 mg/dL 603-[address] [facility] IgM [Mass/volume] in Serum o r PlasmaOrdered By: Angel Mejía on 12-25-2021 IgM [Mass/Vol] 284 mg/dL 20-[address] [facility] Comment on above: Performed at: [employer] [place] [id number] [employer] Borer: Pablito Alexander PhD, Phone: [phone] Immunofixation for UrineOrde red By: Angel Mejía on 12-25-2021 Interpretation Immunofixation (U) [Interp] Comment: . [facility] Comment on above: Presence of monoclon al protein is unclear at this time. Suggest repeat in 3 to 6 months if clinically indicated. Performed at: [facility] [id number] St[employer] Borer: Pablito Alexander PhD, Phone: [phone] Immunoglobulin light chains. kappa.free [Mass/volume] in SerumOrdered By: Angel Mejía on 12-25-2021 Immunoglobulin light chains.kappa.free (S) [Mass/Vol] 93.9 mg/L 3.3-19.[address] [facility] Immunoglobulin light chains. kappa.free/Immunoglobulin light chains.lambda.free [MassOrdered By: Angel Mejía on 12-25-2021 Immunoglobulin light chains.kappa.free/Immun oglobulin light chains.lambda.free (S) [Mass ratio] 1.78 0.26-1.[address] [facility] Comment on above: Performed at: [employer] [facility] [address] [place] [id number] [employer]em[employer] Borer: Pablito Alexander PhD, Phone: [phone] Immunoglobulin light chains. lambda.free [Mass/volume] in Serum or PlasmaOrdered By: Angel Mejía on 12-25-2021 Immunoglobulin light chains.lambda.free [Mass/Vol] 52.7 mg/L 5.7-26.[address] [facility] Iron [Mass/volume] in Serum or PlasmaOrdered By: Angel Mejía on 12-25-2021 Iron [Mass/Vol] 44 ug/dL 40-[address] [facility] Iron binding capacity [Mass/ volume] in Serum or PlasmaOrdered By: Angel Mejía on 12-25-2021 Iron binding capacity [Mass/Vol] 193 ug/dL 255-[address] [facility] Iron saturation [Mass Fracti on] in Serum or PlasmaOrdered By: Angel Mejía on 12-25-2021 Iron saturation [Mass fraction] 22.0 % 20-[address] [facility] Ketones Auto test strip (U) [Mass/Vol]Ordered By: Angel Mejía on 12-25-2021 Ketones (U) [Mass/Vol] Negative Negative [facility] - Chemistry and C hemistry - challengeOrdered By: Angel Mejía on 12-25-2021 Cobalamin (Vitamin B12) [Mass/Vol] 968 pg/mL 180-[address] [facility] Magnesium [Mass/Vol] 2.1 mg/dL 1.6-2.6 [facility] - CoagulationOrde red By: Angel Mejía on 12-25-2021 PT Coag (PPP) [Time] 11.6 s 9.0-12.9 [facility] - UrinalysisOrder ed By: Angel Mejía on 12-25-2021 Hyaline casts LM Ql (Urine sed) 0-8 [LPF] 0-[address] [facility] MCH Auto (RBC) [Entitic mass ]Ordered By: Angel Mejía on 12-25-2021 MCH (RBC) [Entitic mass] 29.8 pg 27.5-35.[address] [facility] MCHC Auto (RBC) [Mass/Vol]Or dered By: Angel Mejía on 12-25-2021 MCHC (RBC) [Mass/Vol] 35.1 g/dL 32.5-35.6 [facility] MCV Auto (RBC) [Entitic vol] Ordered By: Angel Mejía on 12-25-2021 MCV (RBC) [Entitic vol] 84.8 fL 83.5-101 [facility] Nitrite Test strip Ql (U)Ord ered By: Angel Mejía on 12-25-2021 Nitrite Ql (U) Negative Negative [facility] No Panel InformationOrdered By: Angel Mejía on 12-25-2021 25-Hydroxy Vitamin D Total < 7.0 ng/mL 30-[address] [facility] Comment on above: VITAMIN D STATUS 25( OH)VITAMIN D RANGE (ng/mL) Deficient <20 Insufficient 20 to <30 Sufficient 30 to 100 Reference: Vanna MF,Chemo NC, Sergey SIMENTAL, et al. Evaluation,treatment, and prevention of vitamin D deficiency; an Endocrine Society clinical practice guideline. JCEM. 2010; 96(7):1911-30. Estimated GFR () 45 mL/Min [facility] Comment on above: GFR estimated refere nce range: According to KDOQI guidelines, <60 ml/min/1.73m2 is sufficient to diagnose a patient with chronic kidney disease. Pharmacy Creatinine Clearance (Chem N/A [facility] Protein Electrophoresis [place] Not observed g/dL Not Observed [facility] Protein Electrophoresis Note See comment . [facility] Comment on above: Protein electrophore sis scan will follow via computer, mail, or manager photography delivery. Performed at: [address] [id number] Stemhole Borer: Pablito Alexander PhD, Phone: [phone] Serum Immunofixation Comment: . [facility] Comment on above: Presence of monoclon al protein is unclear at this time. Suggest repeat in 3 to 6 months if clinically indicated. Urine Random Prot Electrophor Note See comment . [facility] Comment on above: Protein electrophore sis scan will follow via computer, mail, or manager photography delivery. Phosphate [Mass/volume] in S gretta or PlasmaOrdered By: Angel Mejía on 12-25-2021 Phosphate [Mass/Vol] 4.6 mg/dL 2.5-4.6 [facility] Platelet mean volume Auto (B ld) [Entitic vol]Ordered By: Angel Mejía on 12-25-2021 Platelet mean volume (Bld) [Entitic vol] 8.9 fL 6.6-10.[address] [facility] Platelet poor plasma interna tional normalized ratio (INR) by coagulation assay (relatOrdered By: Angel Mejía on 12-25-2021 INR Coag (PPP) [Relative time] 1.0 {INR} [facility] Comment on above: INR Therapeutic Rang e A) Pre- and Peroperative OAT started two weeks before surgery. NOT HIP SURGERY: 1.5 - 2.5 HIP SURGERY: 2 - 3 B) Primary and secondary prevention of venous THROMBOSIS: 2 - 3 C) Active venous thrombosis, pulmonary embolism and prevention of recurrent venous thrombosis: 2 - 3 D) Prevention of arterial thromboembolism including patients with mechanical heart valves: 3 - 4.5 Platelets Auto (Bld) [#/Vol] Ordered By: Angel Mejía on 12-25-2021 Platelets (Bld) [#/Vol] 280 10*3/uL 150-[address] [facility] Protein Auto test strip (U) [Mass/Vol]Ordered By: Angel Mejía on 12-25-2021 Protein (U) [Mass/Vol] mg/dL Negative [facility] Protein [Mass/volume] in Ser um or PlasmaOrdered By: Angel Mejía on 12-25-2021 Protein [Mass/Vol] 5.5 g/dL 6.0-8.5 [facility] Protein [Mass/volume] in Uri neOrdered By: Angel Mejía on 12-25-2021 Protein (U) [Mass/Vol] 710.3 mg/dL Not Estab. [facility] Comment on above: Results confirmed on dilution. Protein.monoclonal/Protein.t otal in 24 hour Urine by ElectrophoresisOrdered By: Angel Mejía on 12-25-2021 Protein.monoclonal Elph (24H U) [Mass fraction] Comment: % Not Observed [facility] Comment on above: ASYMMETRICAL GAMMA RBC Auto (Bld) [#/Vol]Ordere d By: Angel Mejía on 12-25-2021 RBC (Bld) [#/Vol] 3.55 10*6/uL 3.90-5.60 [facility] Serum globulin measurement ( mass/volume)Ordered By: Angel Mejía on 12-25-2021 Globulin (S) [Mass/Vol] 3.2 g/dL 2.2-3.9 [facility] Serum or plasma albumin/glob ulin mass ratioOrdered By: Angel Mejía on 12-25-2021 Albumin/Globulin [Mass ratio] 0.7 {ratio} 0.7-1.[address] [facility] Serum or plasma alpha 1 glob ulin measurement by electrophoresis (mass/volume)Ordered By: Angel Mejía on 12-25-2021 Alpha 1 globulin Elph [Mass/Vol] 0.2 g/dL 0.0-0.[address] [facility] Serum or plasma alpha 2 glob ulin measurement by electrophoresis (mass/volume)Ordered By: Angel Mejía on 12-25-2021 Alpha 2 globulin Elph [Mass/Vol] 1.2 g/dL 0.4-1.[address] [facility] Serum or plasma beta globuli n measurement by electrophoresis (mass/volume)Ordered By: Angel Mejía on 12-25-2021 Beta globulin Elph [Mass/Vol] 0.9 g/dL 0.7-1.[address] [facility] Serum or plasma calcium farida urement (mass/volume)Ordered By: Angel Mejía on 12-25-2021 Calcium [Mass/Vol] 8.3 mg/dL 8.2-10.2 [facility] Serum or plasma chloride trina surement (moles/volume)Ordered By: Angel Mejía on 12-25-2021 Chloride [Moles/Vol] 97 mmol/L 95-114 [facility] Serum or plasma gamma globul in measurement by electrophoresis (mass/volume)Ordered By: Angel Mejía on 12-25-2021 Gamma globulin Elph [Mass/Vol] 0.9 g/dL 0.4-1.[address] [facility] Serum or plasma glucose farida urement (mass/volume)Ordered By: Angel Mejía on 12-25-2021 Glucose [Mass/Vol] 392 mg/dL 70-100 [facility] Comment on above: ADA recommended refe rence range Random Glucose Reference Range is dependent on time and content of last meal. Glucose of more than 200 mg/dL in a nonstressed, ambulatory subject supports the diagnosis of Diabetes Mellitus. Serum or plasma intact parat hyroid hormone measurement (mass/volume)Ordered By: Angel Mejía on 12-25-2021 Parathyrin.intact [Mass/Vol] 147.3 pg/mL [facility] Serum or plasma potassium me asurement (moles/volume)Ordered By: Angel Mejía on 12-25-2021 Potassium [Moles/Vol] 4.2 mmol/L 3.5-5.1 [facility] Serum or plasma sodium measu rement (moles/volume)Ordered By: Angel Mejía on 12-25-2021 Sodium [Moles/Vol] 130 mmol/L 136-146 [facility] Serum or plasma total carbon dioxide measurement (moles/volume)Ordered By: Angel Mejía on 12-25-2021 CO2 [Moles/Vol] 24.4 mmol/L 22.0-30.0 [facility] Serum or plasma urea nitroge n measurement (mass/volume)Ordered By: Angel Mejía on 12-25-2021 Urea nitrogen [Mass/Vol] 35 mg/dL 05-[address] [facility] Specific gravity Auto test s trip (U) [Rel density]Ordered By: Angel Mejía on 12-25-2021 Specific gravity (U) [Rel density] 1.026 1.001-1.[address] [facility] Squamous epithelial cells de tection in urine sediment by light microscopyOrdered By: Angel Mejía on 12-25-2021 Epithelial cells.squamous LM Ql (Urine sed) 1-2 [HPF] 0-[address] [facility] Urine alpha 1 globulin/total protein by electrophoresisOrdered By: Angel Mejía on 12-25-2021 Alpha 1 globulin Elph (U) [Mass fraction] 7.4 % . [facility] Urine alpha 2 globulin/total protein ratio by electrophoresisOrdered By: Angel Mejía on 12-25-2021 Alpha 2 globulin Elph (U) [Mass fraction] 6.8 % . [facility] Urine bacteria detection by automated methodOrdered By: Angel Mejía on 12-25-2021 Bacteria Auto Ql (U) None seen None Seen [facility] Urine beta globulin measurem ent by electrophoresis (mass/volume)Ordered By: Angel Mejía on 12-25-2021 Beta globulin Elph (U) [Mass/Vol] 11.0 % . [facility] Urine clarity by refractomet ry automatedOrdered By: Angel Mejía on 12-25-2021 Clarity Refractometry automated (U) Clear Clear [facility] Urine glucose measurement by automated test strip (mass/volume)Ordered By: Angel Mejía on 12-25-2021 Glucose Auto test strip (U) [Mass/Vol] >=1000 mg/dL Normal [facility] Urine hemoglobin detection b y automated test stripOrdered By: Angel Mejía on 12-25-2021 Hemoglobin Auto test strip Ql (U) 1+ Negative [facility] Urine leukocyte esterase det ection by automated test stripOrdered By: Angel Mejía on 12-25-2021 Leukocyte esterase Auto test strip Ql (U) Negative Negative [facility] Urobilinogen Auto test strip (U) [Mass/Vol]Ordered By: Angel Mejía on 12-25-2021 Urobilinogen (U) [Mass/Vol] Normal mg/dL Normal [facility] WBC Auto (Bld) [#/Vol]Ordere d By: Angel Mejía on 12-25-2021 WBC (Bld) [#/Vol] 8.1 10*3/uL 4.1-10.5 [facility] pH Auto test strip (U)Ordere d By: Angel Mejía on 12-25-2021 pH (U) 5.5 [pH] 5.0-9.[address] [facility] Tobacco Screening.on 022 Adult depression screening assessment No [facility] [employer] 250 DO Work Phone: Tobacco use status CPHS a) Yes [facility] [employer] 250 DO Work Phone: Tobacco Screening. Yes [facility] [employer] 250 DO Work Phone: MARYAM EIA W/REFLEX 5 BIOMARKER Son 10-24-2021 MARYAM Direct Positive Abnormal Negative [facility] Comment on above: Performed By: #### A NARF #### [facility] [address] [place] [address] Dr. Sonam Godinez Anti-DNA (DS) Ab Qn 1 IU/mL Normal 0-9 [facility] Comment on above: Result Comment: Nega tive <5 Equivocal 5 - 9 Positive >9 Performed By: #### A NARF #### [facility] [address] [place] [address] Dr. Sonam Godinez ENAMEL BURNER Antibodies 1.4 AI Critically high 0.0-0.9 [facility] Comment on above: Performed By: #### A NARF #### [facility] [address] [place] [address] Dr. Sonam Godinez SEE BELOW: Comment Normal [facility] Comment on above: Result Comment: Auto antibody Disease Association Condition Frequency --------- Antinuclear Antibody, SLE, mixed connective Direct (MARYAM-D) tissue diseases --------- dsDNA SLE 40 - 60% --------- Chromatin Drug induced SLE 90% SLE 48 - 97% --------- SSA (Ro) SLE 25 - 35% Sjogren's Syndrome 40 - 70% Lupus 100% --------- SSB (La) SLE 10% Sjogren's Syndrome 30% --------- Sm (anti-Anderson) SLE 15 - 30% --------- ENAMEL BURNER Mixed Connective Tissue Disease 95% (U1 nRNP, SLE 30 - 50% anti-ribonucleoprotein) Polymyositis and/or Dermatomyositis 20% --------- Scl-70 (antiDNA Scleroderma (diffuse) 20 - 35% topoisomerase) Crest 13% --------- Cony-1 Polymyositis and/or Dermatomyositis 20 - 40% --------- Centromere B Scleroderma - Crest variant 80% Performed By: #### A TEN #### [facility] [address] [place] [address] Dr. Sonam Godinez Sjogren'jarrod Anti-SS-A <0.2 Normal 0.0-0.9 [facility] Comment on above: Performed By: #### A NARF #### [facility] [address] [place] [address] [address] Sonam Godinez Sjogrnirmala'jarrod Anti-SS-B <0.2 Normal 0.0-0.9 [facility] Comment on above: Performed By: #### A NARF #### [facility] [address] [place] [address] [address] Sonam Godinez Anderson Antibodies <0.2 Normal 0.0-0.9 [facility] Comment on above: Performed By: #### A NARF #### [facility] [address] [place] [address] [address] Sonam Godinez ALBUMINon 10-23-2021 Albumin [Mass/Vol] 1.8 g/dL Critically low 3.5-5.0 [facility] Comment on above: Performed By: #### A LB, LIPID, DLDL, BMP #### [facility] [address] [address] [address] Sonam Godinez DIRECT LDLon 10-23-2021 Cholesterol in LDL [Mass/Vol] 164 mg/dL Normal [facility] Comment on above: Performed By: #### A LB, LIPID, DLDL, BMP #### [facility] [address] [place] [address] Dr. Sonam Godinez DLDL NORMAL SEE BELOW Normal [facility] Comment on above: Result Comment: <100 mg/dl OPTIMAL 100 - 129 mg/dl NEAR OR ABOVE OPTIMAL 130 - 159 mg/dl BORDERLINE HIGH 160 - 189 mg/dl HIGH >190 mg/dl VERY HIGH Performed By: #### A LB, LIPID, DLDL, BMP #### [facility] [address] [address] [address] Sonam Godinez GLYCOHEMOGLOBIN A1Con 2021 ADA RECOMMENDATION ADA THERAPEUTIC TARG ET 6.0 - 7.0 ACTION SUGGESTED > 7.0 Normal [facility] Comment on above: Performed By: #### A 1C #### [facility] [address] [address] [address] Sonam Godinez Glucose [Mass/Vol] 157 mg/dL Normal [facility] Comment on above: Performed By: #### A 1C #### [facility] [address] [place] [address] Dr. Sonam Godinez HbA1c (Bld) [Mass fraction] 7.1 % Critically high <=6.0 [facility] Comment on above: Performed By: #### A 1C #### [facility] [address] [place] [address] Dr. Sonam Godinez LIPID PROFILEon 10-23-2021 CHOL-HDL RATIO NORM SEE BELOW Normal [facility] Comment on above: Result Comment: 3.3 - 4.4 LOW RISK 4.4 - 7.1 AVERAGE RISK 7.1 - 11.0 MODERATE RISK >11.0 HIGH RISK Performed By: #### A LB, LIPID, DLDL, BMP #### [facility] [address] [place] [address] Dr. Sonam Godinez Cholesterol [Mass/Vol] 312 mg/dL Critically high <=200 [facility] Comment on above: Performed By: #### A LB, LIPID, DLDL, BMP #### [facility] [address] [place] [address] Dr. Sonam Godinez Cholesterol in HDL [Mass/Vol] 40 mg/dL Normal [facility] Comment on above: Performed By: #### A LB, LIPID, DLDL, BMP #### [facility] [address] [place] [address] Dr. Sonam Godinez Cholesterol.total/Rosalind sterol in HDL [Mass ratio] 7.8 {ratio} Normal [facility] Comment on above: Performed By: #### A LB, LIPID, DLDL, BMP #### [facility] [address] [place] [address] Dr. Sonam Godinez HDL NORMAL > or = 60 mg/dl - LO W CARDIOVASCULAR RISK <40 mg/dl - HIGH CARDIOVASCULAR RISK Normal [facility] Comment on above: Performed By: #### A LB, LIPID, DLDL, BMP #### [facility] [address] [address] [address] Sonam Godinez LDL CALC NORMAL SEE BELOW Normal [facility] Comment on above: Result Comment: <100 mg/dl OPTIMAL 100 - 129 mg/dl NEAR OR ABOVE OPTIMAL 130 - 159 mg/dl BORDERLINE HIGH 160 - 189 mg/dl HIGH >190 mg/dl VERY HIGH Performed By: #### A LB, LIPID, DLDL, BMP #### [facility] [address] [address] [address] Sonam Godinez Triglyceride [Mass/Vol] 494 mg/dL Critically high <=150 [facility] Comment on above: Performed By: #### A LB, LIPID, DLDL, BMP #### [facility] [address] [address] [address] Sonam Godinez PROF CHEM 8 (BAS METB)on Anion gap [Moles/Vol] 8.8 mmol/L Normal [facility] Comment on above: Performed By: #### A LB, LIPID, DLDL, BMP #### [facility] [address] [place] [address] Dr. Sonam Godinez Calcium [Mass/Vol] 7.8 mg/dL Critically low 8.4-10.2 [facility] Comment on above: Performed By: #### A LB, LIPID, DLDL, BMP #### [facility] [address] [place] [address] Dr. Sonam Godinez Chloride [Moles/Vol] 101 mmol/L Normal 98-107 [facility] Comment on above: Performed By: #### A LB, LIPID, DLDL, BMP #### [facility] [address] [place] [address] Dr. Sonam Godinez CO2 [Moles/Vol] 27.1 mmol/L Normal 22.0-30.0 [facility] Comment on above: Performed By: #### A LB, LIPID, DLDL, BMP #### [facility] [address] [place] [address] Dr. Sonam Godinez Creatinine [Mass/Vol] 1.66 mg/dL Critically high 0.66-1.25 [facility] Comment on above: Performed By: #### A LB, LIPID, DLDL, BMP #### [facility] [address] [place] [address] Dr. Sonam Godinez EGFR-AF HONG KONGER 57 mL/min/1.73m2 Critically low >=60 [facility] Comment on above: Performed By: #### A LB, LIPID, DLDL, BMP #### [facility] [address] [place] [address] Dr. Sonam Godinez EGFR-NON AF [place]ER 47 mL/min/1.73m2 Critically low >=60 [facility] Comment on above: Performed By: #### A LB, LIPID, DLDL, BMP #### [facility] [address] [place] [address] Dr. Sonam Godinez Glucose [Mass/Vol] 240 mg/dL Critically high 74-106 [facility] Comment on above: Performed By: #### A LB, LIPID, DLDL, BMP #### [facility] [address] [place] [address] Dr. Sonam Godinez Potassium [Moles/Vol] 3.9 mmol/L Normal 3.4-5.0 [facility] Comment on above: Performed By: #### A LB, LIPID, DLDL, BMP #### [facility] [address] [place] [address] Dr. Sonam Godinez Sodium [Moles/Vol] 133 mmol/L Critically low 137-145 Th [facility] Comment on above: Performed By: #### A LB, LIPID, DLDL, BMP #### [facility] [address] [place] [address] Dr. Sonam Godinez Urea nitrogen [Mass/Vol] 37.0 mg/dL Critically high 9.0-20.0 [facility] Comment on above: Performed By: #### A LB, LIPID, DLDL, BMP #### [facility] [address] [place] [address] Dr. Sonam Godinez Urea nitrogen/Creatinine [Mass ratio] 22.3 mg/mg Normal [facility] Comment on above: Performed By: #### A LB, LIPID, DLDL, BMP #### [facility] [address] [place], [place] [id number] Dr. Sonam Godinez URINE T PROTEIN CREAT RATIOo n 10-23-2021 UR TOTAL PROTEIN >200.0 Critically high <=12.0 [facility] Comment on above: Performed By: #### U RTPCR #### [facility] [address] [place], [place] [address] Dr. Sonam Godinez URINE CREAT 52.73 mg/dL Normal 20.00-300. 00 [facility] Comment on above: Performed By: #### U RTPCR #### [facility] [address] [place], [place] [address] Dr. Sonam Godinez US KIDNEYS BLADDERon 022 US KIDNEYS BLADDER EXAMINATION: US KIDShay Jarrod BLADDER HISTORY: Renal disorder associated with type I diabetes mellitus COMPARISON: No relevant comparison available. TECHNIQUE: Ultrasound examination was performed of the bladder. FINDINGS: Right Kidney: Normal in size, contour and cortical echotexture with no cortical mass, hydronephrosis or obstructing nephrolithiasis. The cortex measures 1.6 cm thick Height: 6.1 cm Length: 14.0 cm Width: 6.4 cm Left Kidney: Normal in size, contour and cortical echotexture with no cortical mass, hydronephrosis or obstructing nephrolithiasis. The cortex measures 2.0 cm thick Height: 6.0 cm Length: 14.7 cm Width: 5.6 cm Prevoid urinary bladder 138 mL, post void 5 mL. Urinary bladder wall is mildly prominent measuring 4.6 mm Ureteral jets: Visualized bilaterally IMPRESSION: Mildly prominent urinary bladder wall measuring 4.6 mm. No focal mass Normal appearance of kidneys Electronically authenticated by: JEREL MEJIA Date: 2021-10-23 11:27 Normal [facility] ED NOTEon 10-01-2021 ED NOTE HNO ID: [id number] Author: Gerald Ellington MD Service: Emergency Medicine Author Type: Resident Type: ED Notes Filed: 10/01/2021 6:37 PM Note Text: CM for AM 23M sent from [facility] for ophtho c/s for elevated L IOP (50s). Has retinal detachment s/p surgical management, has macular degeneration. Elevated IOP here. Given drops for increased IOP prior to arrival. To do: [ ] Ophtho recs ED Course as of 10/01/211835 Gerald Ellington's Documentation Sun Oct 01, [address] Tristan from ophtho, patient has improved IOP (27 in ED). Recommend DC on drops Timolol BID, the other two should be TID [facility] ophtho f/u at 1230 ([id number] [facility], [facility]) Others' Documentation [place] Oct 01, 2021 0707 GLUCOSE, BLOOD (POC)(!): Glucose, Point of Care 144(!) [AM] ED Course User Index [AM] Allyson Castro MD Clinical Impressions as of 10/01/211835 Elevated IOP, left History of retinal detachment ADDENDUM: MDM: Discussed the patient's care with the ophthalmology resident. They recommended prescription for drops for acute angle-closure glaucoma after their evaluation of the patient, these were prescribed. Patient's IOP had reduced per evaluation by ophthalmology provider. As there was no further indication for acute intervention on their part they recommended follow-up tomorrow in their clinic. Clinic information given to the patient, he and his significant other were given the opportunity ask questions. Return precautions provided. Gerald Ellington MD Emergency Medicine Resident 10/01/21 Normal [facility] ED PROV NOTEon 10-01-2021 ED PROV NOTE HNO ID: [id number] Author: Anum Tristan MD Service: Ophthalmology Author Type: Resident Type: ED Provider Notes Filed: 10/01/2021 9:02 AM Note Text: -- Attestation signed by Ben Cherry MD at 10/02/2021 7:56 AM I have confirmed and edited as necessary the relevant ophthalmic history, ROS, and the neuro exam findings as obtained by others. I have seen and examined this patient. I have discussed the case and the management of this patient's care with the Resident/Fellow, if applicable. I also have reviewed and agree with the assessment and plan as stated above and agree with all of its relevant components. Ben Cherry MD October 02, 2021 7:56 AM -- OPHTHALMOLOGY CONSULTATION REPORT Yoel Werner [id number] October 01, 2021 7:14 AM REASON FOR CONSULTATION Elevated IOP in the setting of recent retina surgery, left eye ASSESSMENT AND PLAN 1. Ocular hypertension, left eye - Initially in mid-50s, now significantly improved at 28 - IOP spike in the setting of recent buckle/vit with SO fill for chronic TRD - Precise etiology of IOP spike is unclear (no evidence of angle closure on gonio though limited by K edema) - potential etiologies include SO overfill, intermittent pupillary block due to forward migration of SO (e.g., when lying flat on back), buckle effect (though buckle not seen on exam), oxidative changes in the angle - For now, will manage IOP medically and arrange f/u with glaucoma tomorrow for further assessment and management Recommendations - Please start the following drops: Dorzolamide TID left eye Brimonidine TID left eye Timolol BID left eye - Positioning: not flat on back - F/u in [place] with Dr. Clarke Allen tomorrow at 12:30 - ophthalmology will arrange appointment 2. Proliferative diabetic retinopathy, both eyes - Managed by Dr. Gonzales in [place]; next f/u appointment Saturday, 09/05 per patient Case discussed with glaucoma fellow Dr. Cherry and retina staff Dr. Aguilar. HPI This is a 36 year old male who is transferred to [facility] for elevated IOP, left eye, in the setting of recent retina surgery. The patient has a history of proliferative diabetic retinopathy with chronic TRD, left eye, for which he underwent retina surgery on 09/18/21 (vitrectomy + buckle with SO fill per patient, records not available for review, buckle not seen on exam) with Dr. Jerel Gonzales of [facility] (pt saw him in [place], [place]). The patient was doing well at his POD1 visit but has not followed up since due to being dx with HSALONDA around the time of surgery. His next f/u visit is scheduled for this Saturday, 10/06. He was initially on PF and an unknown abx drop, both QID, in the operative eye, but he has been off all gtts since Saturday. The patient reports that, over the past day and a half, he developed severe, throbbing left periocular pain, which prompted his visit to [facility] ED, where he was found to have IOP in the mid-50s. The [facility] ED was unable to get in contact with the patient's retina practice, so I was called for medical advice. I recommended 3 rounds of brimonidine/timolol/dorzol amide and, if possible, 1g or 500mg of Diamox (depending on kidney function; recommended BMP prior to administration). After these interventions, the patient's IOP, left eye, remained in the high 40s, so the decision was made to transfer the patient to [facility] Main ED for further assessment and management. CT at [facility] was remarkable only for vitreous opacities, c/w exam. The patient has a history of intravitreal injections (uncertain agent, presumably anti-VEGF) with his previous retina specialist in [place] and, most recently, received anti-VEGF injections OU on 09/08/[address] Gonzales. He denies history of laser therapy but states that Dr. Gonzales told him he is planning on adding laser in the future. The patient wears glasses and baseline but does not have his glasses with him at this time. 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 Gonzales) Eye medications: none PMH No past medical history on file. PSH No past surgical history on file. SOCIAL HISTORY Social History Tobacco Use - Smoking status: Not on file - Smokeless tobacco: Not on file Substance Use Topics - Alcohol use: Not on file - Drug use: Not on file MEDICATIONS Prior to Admission No prescriptions on file. Admission No current facility-administered medications for this encounter. ALLERGIES ALLERGIES No Known Allergies OPHTHALMIC ROS Ophthalmic: Negative other than in HPI PHYSICAL EXAM: Eye Exam Base Eye Exam Visual Acuity (Snellen - Linear) Right Left Dist sc CF Dist ph sc 20/100 +2 Tonometr (more content not included)... Normal [facility] ED PROV NOTE HNO ID: [id number] Author: Rishi Us MD Service: Emergency Medicine Author Type: Physician Type: ED Provider Notes Filed: 10/01/2021 7:17 AM Note Text: ED Provider Note Patient Name: Yoel Werner SERVICE DATE: 10/01/21 History Patient presents with: Eye Complaint: transfer from OSH - had retinal detatchment surgery 1 week ago, compliant with meds, went to local ED today for new severe L eye pain. CT showed likely vitreous hemorrhage, sent here fpr optho Consult HPI This is a 36 yo male presenting as transfer from OSH for optho consult. Patient endorses long standing hx of eye issues- states he has hx of retinopathy 2/2 DMII and macular degeneration. He is from [place]; recently moved back to [place] in [facility]. About a month ago had outpatient ophthalmology evaluation and was found to have left retinal detachment. He had surgery for left eye retinal detachment on 09/17/2021. States yesterday he developed severe left eye pain. he tried using his eye drops at home for elevated pressures w/out improvement. Went to [facility] ED- found to have elevated IOP. Patient reports left eye pressures were elevated near 50. He received PO meds and ophthalmologic drops, and was sent to [facility] [place] for optho consult. He reports minimal vision from left eye since before surgery. Denies headache, nausea, vomiting, weakness, numbness, tingling. He endorses persistent pain in left eye. ALLERGIES No Known Allergies Review of Systems Constitutional: Negative for appetite change, chills, diaphoresis, fatigue and fever. HENT: Negative for congestion and sore throat. Eyes: Positive for pain, redness and visual disturbance. Respiratory: Negative for apnea, cough, chest tightness, shortness of breath and wheezing. Cardiovascular: Negative for chest pain and palpitations. Gastrointestinal: Negative for abdominal distention, abdominal pain and nausea. Endocrine: Negative for cold intolerance and heat intolerance. Genitourinary: Negative for dysuria, flank pain and hematuria. Musculoskeletal: Negative for arthralgias. Skin: Negative for color change and rash. Allergic/Immunologic: Negative for immunocompromised state. Neurological: Negative for dizziness and headaches. Hematological: Negative for adenopathy. Psychiatric/Behavioral: Negative for confusion. Physical Exam Vitals BP Pulse Temp Temp src Resp SpO2 Weight Height 10/01/21 0534 10/01/21 0530 10/01/21 0534 10/01/21 0534 10/01/21 0534 10/01/21529 -- -- 180/87 71 37.1 ?C (98.8 ?F) Oral 14 100 % Physical Exam Vitals and nursing note reviewed. Constitutional: General: He is not in acute distress. Appearance: He is well-developed. HENT: Head: Normocephalic and atraumatic. Comments: Left pupil is minimally reactive. Conjunctival injection. Nose: Nose normal. Mouth/Throat: Mouth: Mucous membranes are moist. Pharynx: Oropharynx is clear. Eyes: Intraocular pressure: Left eye pressure is 40 mmHg. Extraocular Movements: Extraocular movements intact. Conjunctiva/sclera: Conjunctivae normal. Cardiovascular: Rate and Rhythm: Normal rate and regular rhythm. Heart sounds: Normal heart sounds. Pulmonary: Effort: Pulmonary effort is normal. No respiratory distress. Breath sounds: Normal breath sounds. No wheezing. Abdominal: General: There is no distension. Palpations: Abdomen is soft. Tenderness: There is no abdominal tenderness. Musculoskeletal: General: No deformity. Lymphadenopathy: Cervical: No cervical adenopathy. Skin: General: Skin is warm and dry. Findings: No rash. Neurological: Mental Status: He is alert and oriented to person, place, and time. Comments: Right pupil reactive, left is minimally reactive, EOMI, no facial droop, facial sensation intact. Minimal gross vision from left eye. Diagnostic Testing ED Labs Ordered and Reviewed GLUCOSE, BLOOD (POC) - Abnormal; Notable for the following components: Result Value Ref Range Glucose, Point of Care 144 (*) 74 - 99 mg/dL All other components within normal limits GLUCOSE - ED(POC) ED Course / Clinical Impression ED Course as of 10/01/21 0707 Allyson Castro's Documentation Sun Oct 01, 2021 0707 GLUCOSE, BLOOD (POC)(!): Glucose, Point of Care 144(!) Clinical Impressions as of 10/01/21 0707 Elevated IOP, left MDM / Disposition / Plan MDM This is a 36 yo male presenting as transfer from OSH for optho consult. He presents afebrile, hemodynamically stable in no distress. Left eye is red, pupil minimally reactive. IOP is 40, concerning for acute angle closure glaucoma. Ophthalmology consulted-coming in to evaluate patient. Plan pending final ophthalmology recommendations. Signed out to Dr. Ellington at 0700. SIGNATURE: MD Allyson Blanc MD Resident 10/01/21 0707 ATTENDING NOTE: have personally performed a face to face assessment of the patient an (more content not included)... Normal [facility] Vital Signs Date Time Vital Sign Value Performing Clinician Facility 08-13-2023 10:15-0500 Body height 185.42 cm Rolando Ball Other [facility] Other 08-13-2023 10:15-0500 Body mass index (BMI) [Ratio] 20.92 kg/m2 Rolando Ball Other [facility] Other 08-13-2023 10:15-0500 Body weight 71.94 kg Rolando Ball Other [facility] Other 08-13-2023 10:15-0500 Diastolic blood pressure 61 mm[Hg] Rolando Ball Other [facility] Other 08-13-2023 10:15-0500 Respiratory rate 12 /min Rolando Ball Other [facility] Other 08-13-2023 10:15-0500 Systolic blood pressure 94 mm[Hg] Rolando Ball Other [facility] Other 07-16-2023 09:30-0500 Body height 185.42 cm Rolando Ball Other [facility] Other 07-16-2023 09:30-0500 Body mass index (BMI) [Ratio] 20.98 kg/m2 Rolando Ball Other [facility] Other 07-16-2023 09:30-0500 Body weight 72.12 kg Rolando Ball Other [facility] Other 07-16-2023 09:30-0500 Diastolic blood pressure 75 mm[Hg] Rolando Ball Other [facility] Other 07-16-2023 09:30-0500 Respiratory rate 12 /min Rolando Ball Other [facility] Other 07-16-2023 09:30-0500 Systolic blood pressure 115 mm[Hg] Rolando Ball Other [facility] Other 07-04-2023 09:45-0500 Body height 185.42 cm Romain Mendoza Other [facility] Other 07-04-2023 09:45-0500 Body mass index (BMI) [Ratio] 21.11 kg/m2 Romain Mendoza Other [facility] Other 07-04-2023 09:45-0500 Body temperature 97.8 [degF] Romain Mendoza Other [facility] Other 07-04-2023 09:45-0500 Body weight 72.58 kg Romain Mendoza Other [facility] Other 07-04-2023 09:45-0500 Diastolic blood pressure 72 mm[Hg] Romain Mendoza Other [facility] Other 07-04-2023 09:45-0500 SaO2% (BldA) [Mass fraction] 98 % Romain Mendoza Other [facility] Other 07-04-2023 09:45-0500 Systolic blood pressure 118 mm[Hg] Romain Mendoza Other [facility] Other 06-17-2023 13:55-0400 Diastolic blood pressure 87 mm[Hg] DO Rolando Ball Work Phone: [facility] 06-17-2023 13:55-0400 Heart rate 72 /min DO Rolando Ball Work Phone: [facility] 06-17-2023 13:55-0400 Respiratory rate 16 /min DO Rolando Ball Work Phone: [facility] 06-17-2023 13:55-0400 SaO2% (BldA) [Mass fraction] 99 % DO Rolando Ball Work Phone: [facility] 06-17-2023 13:55-0400 Systolic blood pressure 158 mm[Hg] DO Rloando Ball Work Phone: [facility] 06-17-2023 12:15-0400 Body height 185.42 cm DO Rloando Ball Work Phone: [facility] 06-17-2023 12:15-0400 Body weight 73.48 kg DO Rolando Ball Work Phone: [facility] 06-13-2023 09:30-0400 Body height 185.42 cm Zina Childs Other [facility] Other 06-13-2023 09:30-0400 Body mass index (BMI) [Ratio] 21.11 kg/m2 Zina Childs Other [facility] Other 06-13-2023 09:30-0400 Body temperature 97.6 [degF] Zina Childs Other [facility] Other 06-13-2023 09:30-0400 Body weight 72.58 kg Zina Childs Other [facility] Other 06-13-2023 09:30-0400 Diastolic blood pressure 72 mm[Hg] Zina Childs Other [facility] Other 06-13-2023 09:30-0400 SaO2% (BldA) [Mass fraction] 97 % Zina Childs Other [facility] Other 06-13-2023 09:30-0400 Systolic blood pressure 130 mm[Hg] Zina Childs Other [facility] Other 04-12-2023 09:40-0400 Diastolic blood pressure 81 mm[Hg] DO Rolando Ball Work Phone: [facility] 04-12-2023 09:40-0400 Heart rate 71 /min DO Rolando Ball Work Phone: [facility] 04-12-2023 09:40-0400 Respiratory rate 16 /min DO Rolando Ball Work Phone: [facility] 04-12-2023 09:40-0400 SaO2% (BldA) [Mass fraction] 98 % DO Rolando Ball Work Phone: [facility] 04-12-2023 09:40-0400 Systolic blood pressure 175 mm[Hg] DO Rolando Ball Work Phone: [facility] 04-12-2023 07:41-0400 Body height 182.88 cm DO Rolando Ball Work Phone: [facility] 04-12-2023 07:41-0400 Body weight 72.57 kg DO Rolando Ball Work Phone: [facility] 04-10-2023 10:00-0400 Body height 185.42 cm Romain Mendoza Other [facility] Other 04-10-2023 10:00-0400 Body mass index (BMI) [Ratio] 21.5 kg/m2 Romain Reji Other [facility] Other 04-10-2023 10:00-0400 Body temperature 97.6 [degF] Romain Reji Other [facility] Other 04-10-2023 10:00-0400 Body weight 73.94 kg Romain Reji Other [facility] Other 04-10-2023 10:00-0400 Diastolic blood pressure 86 mm[Hg] Romian Mendoza Other [facility] Other 04-10-2023 10:00-0400 SaO2% (BldA) [Mass fraction] 96 % Rmoain Reji Other [facility] Other 04-10-2023 10:00-0400 Systolic blood pressure 128 mm[Hg] Romain Reji Other [facility] Other 03-26-2023 08:38-0400 Body height 182.88 cm DO Rolando Ball Work Phone: [facility] 03-26-2023 08:38-0400 Body temperature 97.7 [degF] DO Rolando Ball Work Phone: [facility] 03-26-2023 08:38-0400 Body weight 76.06 kg DO Rolando Ball Work Phone: [facility] 03-26-2023 08:38-0400 Diastolic blood pressure 84 mm[Hg] DO Rolando Ball Work Phone: [facility] 03-26-2023 08:38-0400 Heart rate 75 /min DO Rolando Ball Work Phone: [facility] 03-26-2023 08:38-0400 Respiratory rate 20 /min DO Rolando Ball Work Phone: [facility] 03-26-2023 08:38-0400 SaO2% (BldA) [Mass fraction] 100 % DO Rolando Ball Work Phone: [facility] 03-26-2023 08:38-0400 Systolic blood pressure 169 mm[Hg] DO Rolando Ball Work Phone: [facility] 02-27-2023 15:00-0400 Body mass index (BMI) [Ratio] 21.5 kg/m2 Angel Joyce Other [facility] Other 02-27-2023 15:00-0400 Body temperature 96.6 [degF] Angel Joyce Other [facility] Other 02-27-2023 15:00-0400 Body weight 73.94 kg Angel Joyce Other [facility] Other 02-27-2023 15:00-0400 Diastolic blood pressure 81 mm[Hg] Angel Joyce Other [facility] Other 02-27-2023 15:00-0400 Respiratory rate 16 /min Angel Joyce Other [facility] Other 02-27-2023 15:00-0400 SaO2% (BldA) [Mass fraction] 98 % Angel Joyce Other [facility] Other 02-27-2023 15:00-0400 Systolic blood pressure 150 mm[Hg] Angel Joyce Other [facility] Other 02-27-2023 10:00-0400 Body height 185.42 cm Zina Cihlds Other [facility] Other 02-27-2023 10:00-0400 Body mass index (BMI) [Ratio] 21.24 kg/m2 Zina Childs Other [facility] Other 02-27-2023 10:00-0400 Body temperature 97.3 [degF] Zina Childs Other [facility] Other 02-27-2023 10:00-0400 Body weight 73.03 kg Zina Childs Other [facility] Other 02-27-2023 10:00-0400 Diastolic blood pressure 62 mm[Hg] Zina Childs Other [facility] Other 02-27-2023 10:00-0400 SaO2% (BldA) [Mass fraction] 99 % Zina Childs Other [facility] Other 02-27-2023 10:00-0400 Systolic blood pressure 104 mm[Hg] Zina Childs Other [facility] Other 02-26-2023 09:21-0400 Body height 182.88 cm Rolando Arreguin [employer] Phone: [employer] DO Work Phone: 02-26-2023 09:21-0400 Body mass index (BMI) [Ratio] 21.43 kg/m2 Rolando Arreguin [employer] Phone: [employer] Work Phone: 02-26-2023 09:21-0400 Body surface area Derived from formula 1.93 m2 Rolando Arreguin [employer] Phone: [employer] Work Phone: 02-26-2023 09:21-0400 Body weight 71.67 kg Rolando E Ball Work Phone: [facility] [employer] DO Work Phone: 02-26-2023 09:21-0400 Diastolic blood pressure 64 mm[Hg] Rolando E Ball Work Phone: [facility] [employer] DO Work Phone: 02-26-2023 09:21-0400 Heart rate 78 /min Rolando E Ball Work Phone: [facility] [employer] DO Work Phone: 02-26-2023 09:21-0400 Systolic blood pressure 148 mm[Hg] Rolando E Ball Work Phone: [facility] [employer] DO Work Phone: 02-11-2023 11:20-0400 Body height 185.42 cm Angel Joyce Other [facility] Other 02-11-2023 11:20-0400 Body mass index (BMI) [Ratio] 22 kg/m2 Angel Joyce Other [facility] Other 02-11-2023 11:20-0400 Body temperature 97.4 [degF] Angel Joyce Other [facility] Other 02-11-2023 11:20-0400 Body weight 75.66 kg Angel Joyce Other [facility] Other 02-11-2023 11:20-0400 Diastolic blood pressure 55 mm[Hg] Angel Joyce Other [facility] Other 02-11-2023 11:20-0400 Respiratory rate 16 /min Angel Joyce Other [facility] Other 02-11-2023 11:20-0400 SaO2% (BldA) [Mass fraction] 97 % Angel Joyce Other [facility] Other 02-11-2023 11:20-0400 Systolic blood pressure 93 mm[Hg] Angel Joyce Other [facility] Other 02-04-2023 22:30-0400 Diastolic blood pressure 76 mm[Hg] DO Rolando Ball Work Phone: [facility] 02-04-2023 22:30-0400 Heart rate 71 /min DO Rolando Ball Work Phone: [facility] 02-04-2023 22:30-0400 Respiratory rate 17 /min DO Rolando Ball Work Phone: [facility] 02-04-2023 22:30-0400 SaO2% (BldA) [Mass fraction] 99 % DO Rolando Ball Work Phone: [facility] 02-04-2023 22:30-0400 Systolic blood pressure 182 mm[Hg] DO Rolando Ball Work Phone: [facility] 02-04-2023 17:30-0400 Body temperature 97.9 [degF] DO Rolando Ball Work Phone: [facility] 02-04-2023 07:58-0400 Body height 185.42 cm DO Rolando Ball Work Phone: [facility] 02-04-2023 07:58-0400 Body weight 75 kg DO Rolando Ball Work Phone: [facility] 01-23-2023 11:15-0400 Body height 185.42 cm Romain Mendoza Other [facility] [employer] [place] Other 01-23-2023 11:15-0400 Body mass index (BMI) [Ratio] 21.11 kg/m2 Romain Florezkaley Other [facility] Other 01-23-2023 11:15-0400 Body temperature 98.1 [degF] Romain Florezkaley Other [facility] Other 01-23-2023 11:15-0400 Body weight 72.58 kg Romain Florezkaley Other [facility] Other 01-23-2023 11:15-0400 Diastolic blood pressure 80 mm[Hg] Romain Florezkaley Other [facility] Other 01-23-2023 11:15-0400 SaO2% (BldA) [Mass fraction] 97 % Romain Florezkaley Other [facility] Other 01-23-2023 11:15-0400 Systolic blood pressure 140 mm[Hg] Romain Florezkaley Other [facility] Other 01-16-2023 10:04-0400 Body height 182.88 cm Rolando Arreguin [employer] Phone: [employer] DO Work Phone: 01-16-2023 10:04-0400 Body mass index (BMI) [Ratio] 21.7 kg/m2 Rolando Arreguin [employer] Work Phone: [employer] DO Work Phone: 01-16-2023 10:04-0400 Body surface area Derived from formula 1.94 m2 Rolando Arreguin Ball Work Phone: [employer] DO Work Phone: 01-16-2023 10:04-0400 Body weight 72.58 kg Rolando E Ball Work Phone: [facility] [employer] DO Work Phone: 01-16-2023 10:04-0400 Diastolic blood pressure 70 mm[Hg] Rolando E Ball Work Phone: [facility] [employer] DO Work Phone: 01-16-2023 10:04-0400 Heart rate 60 /min Rolando E Ball Work Phone: [facility] [employer] DO Work Phone: 01-16-2023 10:04-0400 Systolic blood pressure 142 mm[Hg] Rolando E Ball Work Phone: [facility] [employer] DO Work Phone: 01-09-2023 16:00-0400 Body temperature 97.9 [degF] DO Rolando Ball Work Phone: [facility] 01-09-2023 16:00-0400 Diastolic blood pressure 87 mm[Hg] DO Rolando Ball Work Phone: [facility] 01-09-2023 16:00-0400 Heart rate 71 /min DO Rolando Ball Work Phone: [facility] 01-09-2023 16:00-0400 Respiratory rate 18 /min DO Rolando Ball Work Phone: [facility] 01-09-2023 16:00-0400 SaO2% (BldA) [Mass fraction] 97 % DO Rolando Ball Work Phone: [facility] 01-09-2023 16:00-0400 Systolic blood pressure 174 mm[Hg] DO Rolando Ball Work Phone: [facility] 01-09-2023 15:38-0400 Body height 185.42 cm DO Rolando Ball Work Phone: [facility] 01-09-2023 02:36-0400 Body weight 75.6 kg DO Rolando Ball Work Phone: [facility] 12-25-2022 11:40-0400 Body height 185.42 cm DO Mickey Tupa Work Phone: [facility] 12-25-2022 11:40-0400 Body temperature 98 [degF] DO Mickey Tupa Work Phone: [facility] 12-25-2022 11:40-0400 Body weight 74.5 kg DO Mickey Tupa Work Phone: [facility] 12-25-2022 11:40-0400 Diastolic blood pressure 82 mm[Hg] DO Mickey Tupa Work Phone: [facility] 12-25-2022 11:40-0400 Heart rate 73 /min DO Mickey Tupa Work Phone: [facility] 12-25-2022 11:40-0400 Respiratory rate 20 /min DO Mickey Tupa Work Phone: [facility] 12-25-2022 11:40-0400 SaO2% (BldA) [Mass fraction] 100 % DO Mickey Tupa Work Phone: [facility] 12-25-2022 11:40-0400 Systolic blood pressure 192 mm[Hg] DO Mickey Tupa Work Phone: [facility] 12-18-2022 11:30-0400 Diastolic blood pressure 79 mm[Hg] DO Mickey Tupa Work Phone: [facility] 12-18-2022 11:30-0400 Heart rate 63 /min DO Mickey Tupa Work Phone: [facility] 12-18-2022 11:30-0400 Respiratory rate 16 /min DO Mickey Tupa Work Phone: [facility] 12-18-2022 11:30-0400 SaO2% (BldA) [Mass fraction] 97 % DO Mickey Tupa Work Phone: [facility] 12-18-2022 11:30-0400 Systolic blood pressure 129 mm[Hg] DO Mickey Tupa Work Phone: [facility] 12-18-2022 10:45-0400 Inhaled oxygen flow rate 8 L/min DO Mickey Tupa Work Phone: [facility] 12-18-2022 08:12-0400 Body weight 76.2 kg DO Mickey Tupa Work Phone: [facility] 12-18-2022 07:40-0400 Body height 185.42 cm DO Mickey Tupa Work Phone: [facility] 12-18-2022 07:40-0400 Body temperature 98 [degF] DO Mickey Tupa Work Phone: [facility] 12-11-2022 09:50-0400 Diastolic blood pressure 91 mm[Hg] DO Mickey Tupa Work Phone: [facility] 12-11-2022 09:50-0400 Heart rate 62 /min DO Mickey Tupa Work Phone: [facility] 12-11-2022 09:50-0400 Respiratory rate 16 /min DO Mickey Tupa Work Phone: [facility] 12-11-2022 09:50-0400 SaO2% (BldA) [Mass fraction] 100 % DO Mickey Tupa Work Phone: [facility] 12-11-2022 09:50-0400 Systolic blood pressure 174 mm[Hg] DO Mickey Tupa Work Phone: [facility] 12-11-2022 07:46-0400 Body height 185.42 cm DO Mickey Tupa Work Phone: [facility] 12-11-2022 07:46-0400 Body weight 74.84 kg DO Mickey Tupa Work Phone: [facility] 12-06-2022 15:20-0400 Body height 185.42 cm Angel Joyce Other [employer] Other 12-06-2022 15:20-0400 Body mass index (BMI) [Ratio] 21.74 kg/m2 Angel Joyce Other [facility] Other 12-06-2022 15:20-0400 Body temperature 97.3 [degF] Angel Joyce Other [facility] Other 12-06-2022 15:20-0400 Body weight 74.75 kg Angel Joyce Other [facility] Other 12-06-2022 15:20-0400 Diastolic blood pressure 82 mm[Hg] Angel Joyce Other [facility] Other 12-06-2022 15:20-0400 Respiratory rate 16 /min Angel Joyce Other [facility] Other 12-06-2022 15:20-0400 SaO2% (BldA) [Mass fraction] 96 % Angel Joyce Other [facility] Other 12-06-2022 15:20-0400 Systolic blood pressure 163 mm[Hg] Angel Joyce Other [facility] Other 12-04-2022 08:30-0400 Diastolic blood pressure 83 mm[Hg] DO Rolando Ball Work Phone: [facility] 12-04-2022 08:30-0400 Heart rate 66 /min DO Rolando Ball Work Phone: [facility] 12-04-2022 08:30-0400 Respiratory rate 14 /min DO Rolando Ball Work Phone: [facility] 12-04-2022 08:30-0400 SaO2% (BldA) [Mass fraction] 97 % DO Rolando Ball Work Phone: [facility] 12-04-2022 08:30-0400 Systolic blood pressure 170 mm[Hg] DO Rolando Ball Work Phone: [facility] 12-04-2022 07:01-0400 Body height 182.88 cm DO Rolando Ball Work Phone: [facility] 12-04-2022 07:01-0400 Body weight 77.11 kg DO Rolando Ball Work Phone: [facility] 11-28-2022 11:30-0400 Body height 185.42 cm Zina Childs Other [facility] Other 11-28-2022 11:30-0400 Body mass index (BMI) [Ratio] 22.16 kg/m2 Zina Hanhomer Other [facility] Other 11-28-2022 11:30-0400 Body temperature 97.8 [degF] Zina Hanhomer Other [facility] Other 11-28-2022 11:30-0400 Body weight 76.2 kg Zina Hanhomer Other [facility] Other 11-28-2022 11:30-0400 Diastolic blood pressure 58 mm[Hg] Zina Childs Other [facility] Other 11-28-2022 11:30-0400 SaO2% (BldA) [Mass fraction] 97 % Zina Childs Other [facility] Other 11-28-2022 11:30-0400 Systolic blood pressure 102 mm[Hg] Zina Childs Other [facility] Other 11-19-2022 10:20-0400 Body height 185.42 cm Angel Joyce Other [facility] Other 11-19-2022 10:20-0400 Body mass index (BMI) [Ratio] 22.22 kg/m2 Angel Joyce Other [facility] Other 11-19-2022 10:20-0400 Body temperature 99.6 [degF] Angel Joyce Other [facility] Other 11-19-2022 10:20-0400 Body weight 76.39 kg Angel Joyce Other [facility] Other 11-19-2022 10:20-0400 Diastolic blood pressure 68 mm[Hg] Angel Joyce Other [facility] Other 11-19-2022 10:20-0400 Respiratory rate 6 /min Angel Joyce Other [facility] Other 11-19-2022 10:20-0400 SaO2% (BldA) [Mass fraction] 99 % Angel Joyce Other [facility] Other 11-19-2022 10:20-0400 Systolic blood pressure 105 mm[Hg] Angel Joyce Other [facility] Other 11-12-2022 09:12-0400 Body height 182.88 cm DO Rolando Ball Work Phone: [facility] 11-12-2022 09:12-0400 Body temperature 98.1 [degF] DO Rolando Ball Work Phone: [facility] 11-12-2022 09:12-0400 Body weight 73 kg DO Rolando Ball Work Phone: [facility] 11-12-2022 09:12-0400 Diastolic blood pressure 63 mm[Hg] DO Rolando Ball Work Phone: [facility] 11-12-2022 09:12-0400 Heart rate 67 /min DO Rolando Ball Work Phone: [facility] 11-12-2022 09:12-0400 Respiratory rate 16 /min DO Rolando Ball Work Phone: [facility] 11-12-2022 09:12-0400 SaO2% (BldA) [Mass fraction] 100 % DO Rolando Ball Work Phone: [facility] 11-12-2022 09:12-0400 Systolic blood pressure 106 mm[Hg] DO Rolando Ball Work Phone: [facility] 10-18-2022 10:22-0500 Body height 185.42 cm Rolando E Ball Work Phone: [facility] [employer] [employer] DO Work Phone: 10-18-2022 10:22-0500 Body mass index (BMI) [Ratio] 22.17 kg/m2 Rolando E Ball Work Phone: [facility] [employer] [employer] DO Work Phone: 10-18-2022 10:22-0500 Body surface area Derived from formula 2 m2 Rolando E Ball Work Phone: [facility] [address] DO Work Phone: 10-18-2022 10:22-0500 Body weight 76.2 kg Rolando E Ball Work Phone: [facility] [address] DO Work Phone: 10-18-2022 10:22-0500 Diastolic blood pressure 76 mm[Hg] Rolando E Ball Work Phone: [facility] [employer] DO Work Phone: 10-18-2022 10:22-0500 Heart rate 76 /min Rolando E Ball Work Phone: [facility] [employer] DO Work Phone: 10-18-2022 10:22-0500 Systolic blood pressure 120 mm[Hg] Rolando E Ball Work Phone: [facility] [employer] DO Work Phone: 10-16-2022 09:40-0500 Body height 185.42 cm Angel Joyce Other [facility] Other 10-16-2022 09:40-0500 Body mass index (BMI) [Ratio] 22.19 kg/m2 Angel Joyce Other [facility] Other 10-16-2022 09:40-0500 Body temperature 98.4 [degF] Angel Joyce Other [facility] Other 10-16-2022 09:40-0500 Body weight 76.3 kg Angel Joyce Other [facility] Other 10-16-2022 09:40-0500 Diastolic blood pressure 73 mm[Hg] Angel Joyce Other [facility] Other 10-16-2022 09:40-0500 Respiratory rate 16 /min Angel Joyce Other [facility] Other 10-16-2022 09:40-0500 SaO2% (BldA) [Mass fraction] 99 % Angel Joyce Other [facility] Other 10-16-2022 09:40-0500 Systolic blood pressure 121 mm[Hg] Angel Joyce Other [facility] Other 10-10-2022 10:30-0500 Body height 185.42 cm Zina Childs Other [facility] Other 10-10-2022 10:30-0500 Body mass index (BMI) [Ratio] 21.77 kg/m2 Zina Hanhomer Other [facility] Other 10-10-2022 10:30-0500 Body temperature 97.8 [degF] Zina Hanhomer Other [facility] Other 10-10-2022 10:30-0500 Body weight 74.84 kg Zina Childs Other [facility] Other 10-10-2022 10:30-0500 Diastolic blood pressure 62 mm[Hg] Zina Hanhomer Other [facility] Other 10-10-2022 10:30-0500 SaO2% (BldA) [Mass fraction] 98 % Zina Hanhomer Other [facility] Other 10-10-2022 10:30-0500 Systolic blood pressure 108 mm[Hg] Zina Hanjairono Other [facility] Other 10-08-2022 10:15-0500 Body height 185.42 cm Rolando Ball Other [facility] Other 10-08-2022 10:15-0500 Body mass index (BMI) [Ratio] 21.85 kg/m2 Rolando Ball Other [facility] [employer] [place] Other 10-08-2022 10:15-0500 Body weight 75.12 kg Rolando Ball Other [facility] [employer] [place] Other 10-08-2022 10:15-0500 Diastolic blood pressure 70 mm[Hg] Rolando Ball Other [facility] [employer] [place] Other 10-08-2022 10:15-0500 Respiratory rate 12 /min Rolando Ball Other [facility] [employer] [place] Other 10-08-2022 10:15-0500 Systolic blood pressure 108 mm[Hg] Rolando Ball Other [facility] [employer] [place] Other 10-03-2022 11:46-0500 Body temperature 97.9 [degF] DO Zeus Keister Work Phone: [facility] 10-03-2022 11:46-0500 Diastolic blood pressure 90 mm[Hg] DO Zeus Keister Work Phone: [facility] 10-03-2022 11:46-0500 Heart rate 77 /min DO Zeus Keister Work Phone: [facility] 10-03-2022 11:46-0500 Respiratory rate 16 /min DO Zeus Keister Work Phone: [facility] 10-03-2022 11:46-0500 SaO2% (BldA) [Mass fraction] 98 % DO Zeus Keister Work Phone: [facility] 10-03-2022 11:46-0500 Systolic blood pressure 171 mm[Hg] DO Zeus Keister Work Phone: [facility] 10-03-2022 09:41-0500 60 1 Rolando Arreguin Ball Work Phone: [facility] [facility] DO Work Phone: Comment on above: [id number] 10-03-2022 03:52-0500 Body height 185.42 cm DO Zeus Keister Work Phone: [facility] 10-03-2022 03:52-0500 Body weight 74.2 kg DO Zeus Keister Work Phone: [facility] 10-03-2022 02:26-0500 Heart rate 70 /min DO Zeus Keister Work Phone: [facility] 10-03-2022 02:26-0500 Respiratory rate 14 /min DO Zeus Keister Work Phone: [facility] 10-03-2022 02:26-0500 SaO2% (BldA) [Mass fraction] 98 % DO Zeus Keister Work Phone: [facility] 10-03-2022 01:52-0500 Diastolic blood pressure 79 mm[Hg] DO Zeus Keister Work Phone: [facility] 10-03-2022 01:52-0500 Systolic blood pressure 162 mm[Hg] DO Zeus Keister Work Phone: [facility] 10-02-2022 23:27-0500 Body height 185.42 cm DO Zeus Keister Work Phone: [facility] 10-02-2022 23:27-0500 Body temperature 97.8 [degF] DO Zeus Keister Work Phone: [facility] 10-02-2022 23:27-0500 Body weight 75.1 kg DO Zeus Keister Work Phone: [facility] 09-17-2022 13:27-0500 Diastolic blood pressure 62 mm[Hg] DO Rolando Ball Work Phone: [facility] 09-17-2022 13:27-0500 Heart rate 59 /min DO Rolando Ball Work Phone: [facility] 09-17-2022 13:27-0500 Respiratory rate 16 /min DO Rolando Ball Work Phone: [facility] 09-17-2022 13:27-0500 SaO2% (BldA) [Mass fraction] 99 % DO Rolando Ball Work Phone: [facility] 09-17-2022 13:27-0500 Systolic blood pressure 121 mm[Hg] DO Rolando Ball Work Phone: [facility] 09-17-2022 11:51-0500 Inhaled oxygen flow rate 8 L/min DO Rolando Ball Work Phone: [facility] 09-17-2022 10:14-0500 Body height 182.88 cm DO Rolando Ball Work Phone: [facility] 09-17-2022 10:14-0500 Body mass index (BMI) [Ratio] 22.4 kg/m2 DO Rolando Ball Work Phone: [facility] 09-17-2022 10:14-0500 Body weight 75 kg DO Rolando Ball Work Phone: [facility] 09-17-2022 08:35-0500 Body temperature 97.9 [degF] DO Rolando Ball Work Phone: [facility] 09-10-2022 14:28-0500 Body temperature 97.8 [degF] DO Rolando Ball Work Phone: [facility] 09-10-2022 14:28-0500 Body weight 76.9 kg DO Rolando Ball Work Phone: [facility] 09-10-2022 14:28-0500 Diastolic blood pressure 76 mm[Hg] DO Rolando Ball Work Phone: [facility] 09-10-2022 14:28-0500 Heart rate 74 /min DO Rolando Ball Work Phone: [facility] 09-10-2022 14:28-0500 Respiratory rate 16 /min DO Rolando Ball Work Phone: [facility] 09-10-2022 14:28-0500 SaO2% (BldA) [Mass fraction] 99 % DO Rolando Ball Work Phone: [facility] 09-10-2022 14:28-0500 Systolic blood pressure 161 mm[Hg] DO Rolando Ball Work Phone: [facility] 09-05-2022 11:30-0500 Body height 185.42 cm Romain Mendoza Other [facility] Other 09-05-2022 11:30-0500 Body mass index (BMI) [Ratio] 21.77 kg/m2 Romain Mendoza Other [facility] Other 09-05-2022 11:30-0500 Body temperature 96.9 [degF] Romain Mendoza Other [facility] Other 09-05-2022 11:30-0500 Body weight 74.84 kg Romian Mendoza Other [facility] Other 09-05-2022 11:30-0500 Diastolic blood pressure 60 mm[Hg] Romain Mednoza Other [facility] Other 09-05-2022 11:30-0500 SaO2% (BldA) [Mass fraction] 97 % Romain Mendoza Other [facility] Other 09-05-2022 11:30-0500 Systolic blood pressure 100 mm[Hg] Romain Mendoza Other [facility] Other 08-30-2022 10:40-0500 Body height 185.42 cm Angel Mejía Other [facility] Other 08-30-2022 10:40-0500 Body mass index (BMI) [Ratio] 21.32 kg/m2 Angel Joyce Other [facility] Other 08-30-2022 10:40-0500 Body temperature 98.4 [degF] Angel Joyce Other [facility] Other 08-30-2022 10:40-0500 Body weight 73.3 kg Angel Joyce Other [facility] Other 08-30-2022 10:40-0500 Diastolic blood pressure 67 mm[Hg] Angel Joyce Other [facility] Other 08-30-2022 10:40-0500 Respiratory rate 16 /min Angel Joyce Other [facility] Other 08-30-2022 10:40-0500 SaO2% (BldA) [Mass fraction] 98 % Angel Joyce Other [facility] Other 08-30-2022 10:40-0500 Systolic blood pressure 102 mm[Hg] Angel Joyce Other [employer] Other 08-29-2022 10:19-0500 Blood Pressure Location Mickey GUERIN [facility] 08-29-2022 10:19-0500 Diastolic blood pressure 88 mm[Hg] Mickey GUERIN [facility] 08-29-2022 10:19-0500 Heart rate 76 /min Mickey GUERIN [facility] 08-29-2022 10:19-0500 Systolic blood pressure 129 mm[Hg] Mickey GUERIN [facility] 08-13-2022 11:19-0500 Diastolic blood pressure 67 mm[Hg] DO Rolando Ball Work Phone: [facility] 08-13-2022 11:19-0500 Heart rate 68 /min DO Rolando Ball Work Phone: [facility] 08-13-2022 11:19-0500 Respiratory rate 16 /min DO Rolando Ball Work Phone: [facility] 08-13-2022 11:19-0500 SaO2% (BldA) [Mass fraction] 97 % DO Rolando Ball Work Phone: [facility] 08-13-2022 11:19-0500 Systolic blood pressure 107 mm[Hg] DO Rolando Ball Work Phone: [facility] 08-13-2022 08:00-0500 Body temperature 97.4 [degF] DO Rolando Ball Work Phone: [facility] 08-13-2022 03:30-0500 Body height 182.88 cm DO Rolando Ball Work Phone: [facility] 08-13-2022 03:30-0500 Body weight 76 kg DO Rolando Ball Work Phone: [facility] 08-13-2022 02:20-0500 Body temperature 98.4 [degF] DO Rolando Ball Work Phone: [facility] 08-13-2022 02:20-0500 Diastolic blood pressure 90 mm[Hg] DO Rolando Ball Work Phone: [facility] 08-13-2022 02:20-0500 Heart rate 76 /min DO Rolando Ball Work Phone: [facility] 08-13-2022 02:20-0500 Respiratory rate 16 /min DO Rolando Ball Work Phone: [facility] 08-13-2022 02:20-0500 SaO2% (BldA) [Mass fraction] 98 % DO Rolando Ball Work Phone: [facility] 08-13-2022 02:20-0500 Systolic blood pressure 192 mm[Hg] DO Rolando Ball Work Phone: [facility] 08-12-2022 23:06-0500 Body height 182.88 cm DO Rolando Ball Work Phone: [facility] 08-12-2022 23:06-0500 Body weight 76 kg DO Rolando Ball Work Phone: [facility] 07-19-2022 15:15-0500 60 1 Rolando E Ball Work Phone: [facility] [facility] DO Work Phone: Comment on above: [id number] 07-09-2022 21:35-0500 Body temperature 97 [degF] DO Rolando Ball Work Phone: [facility] 07-09-2022 21:35-0500 Diastolic blood pressure 67 mm[Hg] DO Rolando Ball Work Phone: [facility] 07-09-2022 21:35-0500 Heart rate 65 /min DO Rolando Ball Work Phone: [facility] 07-09-2022 21:35-0500 Respiratory rate 18 /min DO Rolando Ball Work Phone: [facility] 07-09-2022 21:35-0500 SaO2% (BldA) [Mass fraction] 100 % DO Rolando Ball Work Phone: [facility] 07-09-2022 21:35-0500 Systolic blood pressure 140 mm[Hg] DO Rolando Ball Work Phone: [facility] 07-09-2022 16:31-0500 Body height 182.88 cm DO Rolando Ball Work Phone: [facility] 07-09-2022 16:31-0500 Body weight 74.2 kg DO Rolando Ball Work Phone: [facility] 07-05-2022 11:35-0500 Body height 185.42 cm Rolando E Ball Work Phone: [facility] [address] DO Work Phone: 07-05-2022 11:35-0500 Body mass index (BMI) [Ratio] 21.11 kg/m2 Rolando E Ball Work Phone: [facility] DO Work Phone: 07-05-2022 11:35-0500 Body surface area Derived from formula 1.96 m2 Rolando E Ball Work Phone: [facility] [facility] DO Work Phone: 07-05-2022 11:35-0500 Body weight 72.58 kg Rolando E Ball Work Phone: [facility] [address] DO Work Phone: 07-05-2022 11:35-0500 Diastolic blood pressure 72 mm[Hg] Rolando E Ball Work Phone: [facility] [address] DO Work Phone: 07-05-2022 11:35-0500 Heart rate 72 /min Rolando E Ball Work Phone: [facility] [facility] DO Work Phone: 07-05-2022 11:35-0500 Systolic blood pressure 116 mm[Hg] Rolando E Ball Work Phone: [facility] [address] DO Work Phone: 07-04-2022 11:00-0500 Body height 185.42 cm Angel Joyce Other [facility] [employer] [place] Other 07-04-2022 11:00-0500 Body mass index (BMI) [Ratio] 20.76 kg/m2 Angel Joyce Other [facility] Other 07-04-2022 11:00-0500 Body temperature 98.4 [degF] Angel Joyce Other [facility] Other 07-04-2022 11:00-0500 Body weight 71.4 kg Angel Joyce Other [facility] Other 07-04-2022 11:00-0500 Diastolic blood pressure 89 mm[Hg] Angel Joyce Other [facility] Other 07-04-2022 11:00-0500 Respiratory rate 16 /min Angel Joyce Other [facility] Other 07-04-2022 11:00-0500 SaO2% (BldA) [Mass fraction] 98 % Angel Joyce Other [facility] Other 07-04-2022 11:00-0500 Systolic blood pressure 139 mm[Hg] Angel Joyce Other [facility] Other 06-13-2022 11:10-0400 Diastolic blood pressure 86 mm[Hg] DO Rolando Ball Work Phone: [facility] 06-13-2022 11:10-0400 Heart rate 79 /min DO Rolando Ball Work Phone: [facility] 06-13-2022 11:10-0400 Respiratory rate 18 /min DO Rolando Ball Work Phone: [facility] 06-13-2022 11:10-0400 SaO2% (BldA) [Mass fraction] 99 % DO Rolando Ball Work Phone: [facility] 06-13-2022 11:10-0400 Systolic blood pressure 178 mm[Hg] DO Rolando Ball Work Phone: [facility] 06-13-2022 07:37-0400 Body height 182.88 cm DO Rolando Ball Work Phone: [facility] 06-13-2022 07:37-0400 Body temperature 97.5 [degF] DO Rolando Ball Work Phone: [facility] 06-13-2022 07:37-0400 Body weight 72.57 kg DO Rolando Ball Work Phone: [facility] 06-03-2022 20:08-0400 Diastolic blood pressure 82 mm[Hg] DO Rolando Ball Work Phone: [facility] 06-03-2022 20:08-0400 Heart rate 68 /min DO Rolando Ball Work Phone: [facility] 06-03-2022 20:08-0400 Respiratory rate 18 /min DO Rolando Ball Work Phone: [facility] 06-03-2022 20:08-0400 SaO2% (BldA) [Mass fraction] 99 % DO Rolando Ball Work Phone: [facility] 06-03-2022 20:08-0400 Systolic blood pressure 152 mm[Hg] DO Rolando Ball Work Phone: [facility] 06-03-2022 15:02-0400 Body height 182.88 cm DO Rolando Ball Work Phone: [facility] 06-03-2022 15:02-0400 Body temperature 98 [degF] DO Rolando Ball Work Phone: [facility] 06-03-2022 15:02-0400 Body weight 77.11 kg DO Rolando Ball Work Phone: [facility] 05-29-2022 11:01-0400 Body temperature 97.5 [degF] DO Rolando Ball Work Phone: [facility] 05-29-2022 11:01-0400 Body weight 79.37 kg DO Rolando Ball Work Phone: [facility] 05-29-2022 11:01-0400 Diastolic blood pressure 75 mm[Hg] DO Rolando Ball Work Phone: [facility] 05-29-2022 11:01-0400 Heart rate 80 /min DO Rolando Ball Work Phone: [facility] 05-29-2022 11:01-0400 Respiratory rate 16 /min DO Rolando Ball Work Phone: [facility] 05-29-2022 11:01-0400 SaO2% (BldA) [Mass fraction] 98 % DO Rolando Ball Work Phone: [facility] 05-29-2022 11:01-0400 Systolic blood pressure 118 mm[Hg] DO Rolando Ball Work Phone: [facility] 05-23-2022 11:40-0400 Body height 185.42 cm Angel Joyce Other [facility] Other 05-23-2022 11:40-0400 Body mass index (BMI) [Ratio] 22 kg/m2 Angel Joyce Other [facility] Other 05-23-2022 11:40-0400 Body temperature 98.2 [degF] Angel Joyce Other [facility] Other 05-23-2022 11:40-0400 Body weight 75.66 kg Angel Joyce Other [facility] Other 05-23-2022 11:40-0400 Diastolic blood pressure 92 mm[Hg] Angel Joyce Other [facility] Other 05-23-2022 11:40-0400 Respiratory rate 16 /min Angel Joyce Other [facility] Other 05-23-2022 11:40-0400 SaO2% (BldA) [Mass fraction] 98 % Angel Joyce Other [facility] Other 05-23-2022 11:40-0400 Systolic blood pressure 168 mm[Hg] Angel Joyce Other [facility] [employer] [place] Other 05-22-2022 01:36-0400 Body temperature 99 [degF] DO Rolando Ball Work Phone: [facility] 05-22-2022 01:36-0400 Diastolic blood pressure 78 mm[Hg] DO Rolando Ball Work Phone: [facility] 05-22-2022 01:36-0400 Heart rate 67 /min DO Rolando Ball Work Phone: [facility] 05-22-2022 01:36-0400 Respiratory rate 18 /min DO Rolando Ball Work Phone: [facility] 05-22-2022 01:36-0400 SaO2% (BldA) [Mass fraction] 96 % DO Rolando Ball Work Phone: [facility] 05-22-2022 01:36-0400 Systolic blood pressure 154 mm[Hg] DO Rolando Ball Work Phone: [facility] 05-21-2022 22:03-0400 Body height 182.88 cm DO Rolando Ball Work Phone: [facility] 05-21-2022 22:03-0400 Body weight 74 kg DO Rolando Ball Work Phone: [facility] 05-18-2022 11:40-0400 Diastolic blood pressure 95 mm[Hg] DO Rolando Ball Work Phone: [facility] 05-18-2022 11:40-0400 Heart rate 80 /min DO Rolando Ball Work Phone: [facility] 05-18-2022 11:40-0400 Respiratory rate 16 /min DO Rolando Ball Work Phone: [facility] 05-18-2022 11:40-0400 SaO2% (BldA) [Mass fraction] 99 % DO Rolando Ball Work Phone: [facility] 05-18-2022 11:40-0400 Systolic blood pressure 172 mm[Hg] DO Rolando Ball Work Phone: [facility] 05-18-2022 08:57-0400 Body height 182.88 cm DO Rolando Ball Work Phone: [facility] 05-18-2022 08:57-0400 Body weight 75.29 kg DO Rolando Ball Work Phone: [facility] 05-09-2022 13:45-0400 Body temperature 98 [degF] DO Rolando Ball Work Phone: [facility] 05-09-2022 13:45-0400 Body weight 75.43 kg DO Rolando Ball Work Phone: [facility] 05-09-2022 13:45-0400 Diastolic blood pressure 80 mm[Hg] DO Rolando Ball Work Phone: [facility] 05-09-2022 13:45-0400 Heart rate 73 /min DO Rolando Ball Work Phone: [facility] 05-09-2022 13:45-0400 Respiratory rate 20 /min DO Rolando Ball Work Phone: [facility] 05-09-2022 13:45-0400 SaO2% (BldA) [Mass fraction] 99 % DO Rolando Ball Work Phone: [facility] 05-09-2022 13:45-0400 Systolic blood pressure 126 mm[Hg] DO Rolando Ball Work Phone: [facility] 05-09-2022 08:47-0400 Body height 182.88 cm DO Rolando Ball Work Phone: [facility] 04-20-2022 12:00-0400 Body height 185.42 cm Angel Joyce Other [facility] Other 04-20-2022 12:00-0400 Body mass index (BMI) [Ratio] 21.98 kg/m2 Angel Joyce Other [facility] Other 04-20-2022 12:00-0400 Body weight 75.57 kg Angel Joyce Other [facility] Other 04-20-2022 12:00-0400 Diastolic blood pressure 73 mm[Hg] Angel Joyce Other [facility] Other 04-20-2022 12:00-0400 Respiratory rate 16 /min Angel Joyce Other [facility] Other 04-20-2022 12:00-0400 SaO2% (BldA) [Mass fraction] 97 % Angel Joyce Other [facility] Other 04-20-2022 12:00-0400 Systolic blood pressure 111 mm[Hg] Angel Joyce Other [facility] Other 04-10-2022 02:06-0400 Diastolic blood pressure 82 mm[Hg] DO Rolando Ball Work Phone: [facility] 04-10-2022 02:06-0400 Heart rate 71 /min DO Rolando Ball Work Phone: [facility] 04-10-2022 02:06-0400 Respiratory rate 18 /min DO Rolando Ball Work Phone: [facility] 04-10-2022 02:06-0400 SaO2% (BldA) [Mass fraction] 99 % DO Rolando Ball Work Phone: [facility] 04-10-2022 02:06-0400 Systolic blood pressure 156 mm[Hg] DO Rolando Ball Work Phone: [facility] 04-09-2022 23:48-0400 Body temperature 97.2 [degF] DO Rolando Ball Work Phone: [facility] 04-09-2022 21:52-0400 Body height 182.88 cm DO Rolando Ball Work Phone: [facility] 04-09-2022 21:52-0400 Body weight 77.11 kg DO Rolando Ball Work Phone: [facility] 03-29-2022 16:20-0400 Body height 185.42 cm Angel Joyce Other Shortlist Other 03-29-2022 16:20-0400 Body mass index (BMI) [Ratio] 23.4 kg/m2 Angel Joyce Other Shortlist Other 03-29-2022 16:20-0400 Body temperature 96.4 [degF] Angel Joyce Other Shortlist Other 03-29-2022 16:20-0400 Body weight 80.47 kg Angel Joyce Other Shortlist Other 03-29-2022 16:20-0400 Diastolic blood pressure 88 mm[Hg] Angel Joyce Other Shortlist Other 03-29-2022 16:20-0400 Respiratory rate 18 /min Angel Joyce Other Shortlist Other 03-29-2022 16:20-0400 SaO2% (BldA) [Mass fraction] 98 % Angel Joyce Other Shortlist Other 03-29-2022 16:20-0400 Systolic blood pressure 161 mm[Hg] Angel Joyce Other Shortlist Other 12-19-2021 10:40-0400 Body height 185.42 cm Angel Joyce Other Shortlist Other 12-19-2021 10:40-0400 Body mass index (BMI) [Ratio] 22.32 kg/m2 Angel Joyce Other Shortlist Other 12-19-2021 10:40-0400 Body temperature 97.6 [degF] Angel Joyce Other Shortlist Other 12-19-2021 10:40-0400 Body weight 76.75 kg Angel Joyce Other Shortlist Other 12-19-2021 10:40-0400 Diastolic blood pressure 90 mm[Hg] Angel Joyce Other Shortlist Other 12-19-2021 10:40-0400 Respiratory rate 18 /min Angel Joyce Other Shortlist Other 12-19-2021 10:40-0400 SaO2% (BldA) [Mass fraction] 99 % Angel Joyce Other Shortlist Other 12-19-2021 10:40-0400 Systolic blood pressure 160 mm[Hg] Angel Joyce Other Shortlist Other 12-07-2021 09:25-0400 Body height 185.42 cm DO Rolando Ball Work Phone: [facility] 12-07-2021 09:25-0400 Body weight 75.56 kg DO Rolando Ball Work Phone: [facility] 11-24-2021 13:12-0400 Body height 185.42 cm Rolando E Ball Work Phone: [facility] [facility] DO Work Phone: 11-24-2021 13:12-0400 Body mass index (BMI) [Ratio] 23.38 kg/m2 Rolando E Ball Work Phone: [facility] 250 DO Work Phone: 11-24-2021 13:12-0400 Body surface area Derived from formula 2.04 m2 Rolando E Ball Work Phone: [facility] [facility] DO Work Phone: 11-24-2021 13:12-0400 Body weight 80.38 kg Rolando E Ball Work Phone: [facility] [facility] DO Work Phone: 11-24-2021 13:12-0400 Diastolic blood pressure 78 mm[Hg] Rolando E Ball Work Phone: [facility] [facility] DO Work Phone: 11-24-2021 13:12-0400 Heart rate 83 /min Rolando E Ball Work Phone: [facility] [facility] DO Work Phone: 11-24-2021 13:12-0400 Systolic blood pressure 126 mm[Hg] Rolando E Ball Work Phone: [facility] [facility] DO Work Phone: 11-15-2021 00:00-0400 42 1 Rolando E Ball Work Phone: [facility] [facility] DO Work Phone: Comment on above: [id number] 11-08-2021 14:00-0400 Body height 185.42 cm Angel Joyce Other Shortlist Other 11-08-2021 14:00-0400 Body mass index (BMI) [Ratio] 26.01 kg/m2 Angel Joyce Other Shortlist Other 11-08-2021 14:00-0400 Body temperature 98.4 [degF] Angel Joyce Other Shortlist Other 11-08-2021 14:00-0400 Body weight 89.45 kg Angel Joyce Other Shortlist Other 11-08-2021 14:00-0400 Diastolic blood pressure 103 mm[Hg] Angel Joyce Other Shortlist Other 11-08-2021 14:00-0400 Respiratory rate 18 /min Angel Joyce Other Shortlist Other 11-08-2021 14:00-0400 SaO2% (BldA) [Mass fraction] 96 % Angel Joyce Other Shortlist Other 11-08-2021 14:00-0400 Systolic blood pressure 164 mm[Hg] Angel Joyce Other Shortlist Other Encounters Encounter Date Encounter Type Care Provider Facility Start: 08-15-2023 End: 08-15-2023 ambulatory DENISE BERG Not Available Start: 08-13-2023 End: 08-13-2023 ambulatory Rolando Olivares Other Shortlist Other Start: 08-13-2023 Office outpatient vi sit 25 minutes Rolando Ball [facility] Start: 07-22-2023 End: 07-22-2023 ambulatory Rolando Ball Other Shortlist Other Start: 07-22-2023 Telephone encounter Rolando Ball [facility] Start: 07-18-2023 End: 07-18-2023 ambulatory BRIGHT M BENITO Not Available Start: 07-16-2023 End: 07-16-2023 ambulatory Rolando Ball Other Shortlist Other Start: 07-16-2023 Office outpatient vi sit 25 minutes Rolando Ball [facility] Start: 07-04-2023 End: 07-04-2023 ambulatory Romain Mendoza Other Shortlist Other Start: 07-04-2023 Office outpatient vi sit 10 minutes Romain Mendoza [facility] Start: 07-02-2023 End: 07-02-2023 ambulatory Romain Mendoza Facility:[facility] Start: 07-02-2023 End: 07-02-2023 ambulatory DO Rolando Ball Work Phone: [facility] Work Phone: Start: 07-02-2023 End: 07-02-2023 Patient encounter procedure DO Rolando Ball Work Phone: [facility]-Ultrasound [facility] Start: 06-17-2023 End: 06-17-2023 ambulatory Romain Mendoza Facility:[facility] Start: 06-17-2023 End: 06-17-2023 Admission to same day surgery center DO Rolando Ball Work Phone: [facility]-Interventional Radiology Work Phone: Start: 06-17-2023 End: 06-17-2023 ambulatory DO Rolando Ball Work Phone: [facility] Work Phone: Start: 06-13-2023 Office outpatient vi sit 15 minutes Zina Naz [facility] Start: 06-13-2023 End: 06-13-2023 ambulatory DO Rolando Ball Work Phone: [facility] [employer] [place] Other Start: 06-13-2023 End: 06-13-2023 Patient encounter procedure DO Rolando Ball Work Phone: [facility]-Ultrasound [facility] Start: 05-28-2023 End: 05-28-2023 ambulatory Rolando Ball Other [place] [employer] Other Start: 05-28-2023 Office outpatient vi sit 15 minutes Rolando Ball [facility] Start: 04-23-2023 Rx Renewal Rolando E Bal l Work Phone: [facility] [facility] DO Work Phone: Start: 04-12-2023 End: 04-12-2023 ambulatory Romain Mendoza Facility:[facility] Start: 04-12-2023 End: 04-12-2023 Admission to same day surgery center DO Rolando Ball Work Phone: [facility]-Interventional Radiology Work Phone: Start: 04-12-2023 End: 04-12-2023 ambulatory DO Rolando Ball Work Phone: [facility] Work Phone: Start: 04-10-2023 Office outpatient vi sit 15 minutes Romain Mendoza [facility] Vascular Surgery Start: 04-10-2023 Telephone encounter Romain Chapman [facility] Start: 04-10-2023 End: 04-10-2023 ambulatory Romain Mendoza [facility] [employer] Other Start: 04-10-2023 End: 04-10-2023 Patient encounter procedure DO Rolando Ball Work Phone: [facility]-Ultrasound [facility] Start: 03-26-2023 ambulatory Jorje Small Facility: [facility] Start: 03-26-2023 End: 03-26-2023 ambulatory DO Rolando Ball Work Phone: [facility] Work Phone: Start: 03-26-2023 End: 03-26-2023 Registered Recurring DO Rolando Ball [facility] Work [facility]: Start: 02-27-2023 Office outpatient vi sit 25 minutes Angel Joyce [facility] Start: 02-27-2023 End: 02-27-2023 Patient encounter procedure Zina Childs Other [facility] Start: 02-27-2023 Telephone encounter Angel Joyce [facility] Start: 02-27-2023 End: 02-27-2023 ambulatory Romain Florezkaley Facility:[facility] Start: 02-27-2023 Registered Recurring DO Bg in Ball [facility] [place] Work Phone: Start: 02-27-2023 End: 02-27-2023 ambulatory DO Rolando Olivares Work Phone: [facility] [employer] [place] Other Start: 02-26-2023 Office outpatient vi sit 15 minutes Rolando Rodríguez Olivares Work Phone: [facility] 250 DO Work Phone: Start: 02-26-[address] Elder Gomez Facility: Start: 02-11-2023 End: 02-11-2023 ambulatory Angel Joyce Other [facility] [employer] [place] Other Start: 02-11-2023 Office outpatient vi sit 15 minutes Angel Joyce [facility] Start: 02-07-2023 Rx Renewal Rolando almaraz Work Phone: [facility] 250 DO Work Phone: Start: 02-07-2023 Rx Renewal Rolando almaraz Work Phone: [facility] [facility] DO Work Phone: Start: 02-04-2023 Telephone encounter [facility] Start: 02-04-2023 End: 02-04-2023 Admission to same day surgery center DO Rolando Olivares Work Phone: [facility]-Dip Filler Work Phone: Start: 02-04-2023 End: 02-05-2023 ambulatory DO Rolando Olivares Work Phone: [facility] Work Phone: Start: 01-31-2023 Chart Update [facility] Work Phone: Start: 01-31-2023 End: 01-31-2023 ambulatory Rolando Olivares Facility:[facility] Start: 01-31-2023 End: 01-31-2023 ambulatory DO Rolando Olivares Work Phone: [facility] Work Phone: Start: 01-31-2023 End: 01-31-2023 Patient encounter procedure DO Rolando Olivares Work Phone: [facility] [facility] Work Phone: Start: 01-23-2023 End: 01-23-2023 ambulatory Romain Mendoza Other [facility] [employer] [place] Other Start: 01-23-2023 Postop follow up vis it related to original px Romain Mendoza [facility] Start: 01-16-2023 Rx Renewal Rolando almaraz Work Phone: [facility] [facility] DO Work Phone: Start: 01-16-2023 Office outpatient vi sit 40 minutes Rolando Arreguin Marshall Work Phone: [facility] [facility] DO Work Phone: Start: 01-16-[address] Elder Gomez Facility: Start: 01-09-2023 End: 01-09-2023 Evaluation and management of inpatient Rolando Olivares Facility:[facility] Start: 01-09-[address] Rolando Olivares Facility:[id number] Start: 01-09-2023 End: 01-09-2023 Evaluation and management of inpatient DO Rolando Olivares Work Phone: [facility] Work Phone: Start: 12-25-2022 End: 12-25-2022 Emergency department patient visit Eliezer Grijalva Facility:[facility] Start: 12-25-2022 End: 12-25-2022 ambulatory Rolando Olivares Facility:[facility] Start: 12-25-2022 End: 12-25-2022 Emergency department patient visit DO Mickey Gonzalezoanh Work Phone: [facility]-Emergency Room Work Phone: Start: 12-25-2022 End: 12-25-2022 ambulatory DO Mickey Gr Work Phone: [facility] Work Phone: Start: 12-25-2022 End: 12-25-2022 Patient encounter procedure DO Mickey Gonzalezpa Work Phone: [facility]-Lab [facility] [place] Work Phone: Start: 12-18-2022 End: 12-18-2022 ambulatory Romain Mendoza Facility:[facility] Start: 12-18-2022 End: 12-18-2022 Admission to same day surgery center DO Mickey Tupa Work Phone: [facility]-Surgery Center [place] Start: 12-11-2022 End: 12-11-2022 ambulatory Romain Mendoza Facility:[facility] Start: 12-11-2022 End: 12-11-2022 Admission to same day surgery center DO Mickey Tupa Work Phone: [facility]-Interventional Radiology Work Phone: Start: 12-11-2022 End: 12-11-2022 ambulatory DO Mickey Villeda Simón Work Phone: [facility] Work Phone: Start: 12-06-2022 (INJECTION) INJECTION Angel Joyce [facility] Start: 12-06-2022 End: 12-06-2022 ambulatory Angel Joyce Other Shortlist Other Start: 12-04-2022 End: 12-04-2022 ambulatory Romain Mendoza Facility:[facility] Start: 12-04-2022 End: 12-04-2022 Admission to same day surgery center DO Rolando Ball Work Phone: [facility]-Interventional Radiology Work Phone: Start: 12-04-2022 End: 12-04-2022 ambulatory DO Rolando Ball Work Phone: [facility] Work Phone: Start: 11-28-2022 End: 11-28-2022 Patient encounter procedure Zian Childs [facility] Vascular Surgery Start: 11-28-2022 End: 11-28-2022 ambulatory DO Rolando Ball Work Phone: Shortlist Other Start: 11-26-2022 End: 11-26-2022 ambulatory Angel Joyce Other Shortlist Other Start: 11-26-2022 Telephone encounter Angel Joyce [facility] Start: 11-20-2022 End: 11-20-2022 ambulatory Rolando Ball Facility:[facility] Start: 11-20-2022 End: 11-20-2022 ambulatory DO Rolando Ball Work Phone: [facility] Work Phone: Start: 11-20-2022 End: 11-20-2022 Patient encounter procedure DO Rolando Ball Work Phone: [facility] [place] Work Phone: Start: 11-19-2022 End: 11-19-2022 ambulatory Angel Joyce Other [place] [employer] Other Start: 11-19-2022 Office outpatient vi sit 25 minutes Angel Joyce [facility] Start: 11-14-2022 [facility], Provider: Elder Gomez, Status: Pen, Time: 2:00 PM Rolando Olivares Work Phone: [facility] 250 DO Work Phone: Start: 11-14-2022 End: 11-14-2022 ambulatory DO Rolando Olivares Work Phone: [place] [employer] Other Start: 11-14-2022 End: 11-14-2022 Departed Referred DO Rolando Ball Work Phone: [facility]-Dip Filler Work Phone: Start: 11-14-2022 Telephone encounter Angel Joyce [facility] Start: 11-13-2022 Chart Update Rolando almaraz Work Phone: [facility] 250 DO Work Phone: Start: 11-12-2022 Telephone encounter [facility] Start: 11-12-2022 End: 11-12-2022 ambulatory DO Rolando Ball Work Phone: [facility] Work Phone: Start: 11-12-2022 End: 11-12-2022 Patient encounter procedure DO Rolando Marshall Work Phone: [facility]-Pre-Surgical Testing Work Phone: Start: 11-06-2022 Telephone encounter [facility] Work Phone: Start: 10-23-2022 End: 10-23-2022 ambulatory Rolando Olivares Other Shortlist Other Start: 10-23-2022 Telephone encounter Rolando Olivares [facility] Start: 10-18-2022 Office outpatient vi sit 25 minutes Rolando Olivares Work Phone: [facility] [facility] DO Work Phone: Start: 10-18-[address] Rolando Olivares Facility: Start: 10-16-2022 End: 10-16-2022 ambulatory Angel Joyce Other [facility] [employer] [place] Other Start: 10-16-2022 Office outpatient vi sit 25 minutes Angel Joyce [facility] Start: 10-10-2022 End: 10-10-2022 Patient encounter procedure DO Rolando Marshall Work Phone: [facility] [place] Work Phone: Start: 10-10-2022 End: 10-10-2022 ambulatory Rolando Olivares Facility:[facility] Start: 10-10-2022 End: 10-10-2022 ambulatory DO Rolando Olivares Work Phone: [facility] Work Phone: Start: 10-08-2022 End: 10-08-2022 ambulatory Rolando Olivares Other [facility] [place] Other Start: 10-08-2022 Office outpatient vi sit 25 minutes Rolando Olivares [facility] Start: 10-03-2022 End: 10-03-[address] Rolando Olivares Facility:[id number] Start: 10-03-2022 End: 10-03-2022 Evaluation and management of inpatient DO Zeus Bradley Work Phone: [facility] Work Phone: Start: 10-03-2022 End: 10-03-2022 observation encounter DO Zeus Bradley Work Phone: [facility] Work Phone: Start: 09-17-2022 End: 09-17-2022 ambulatory Romain Mendoza Facility:[facility] Start: 09-17-2022 End: 09-17-2022 Admission to same day surgery center DO Rolando Ball Work Phone: [facility]-Surgery Center [facility] [place] Start: 09-17-2022 End: 09-17-2022 ambulatory DO Rolando Ball Work Phone: [facility] Work Phone: Start: 09-12-2022 ambulatory ANGEL MEJÍA Facility:H 1 Start: 09-10-2022 End: 09-10-2022 ambulatory Romain Mendoza Facility:[facility] Start: 09-10-2022 End: 09-10-2022 Patient encounter procedure DO Rolando Ball Work Phone: [facility]-Pre-Surgical Testing Work Phone: Start: 09-10-2022 End: 09-10-2022 ambulatory DO Rolando Ball Work Phone: [facility] Work Phone: Start: 09-10-2022 End: 09-10-2022 Registered Recurring DO Rolando Ball Work Phone: [facility]-Cancer Center Work Phone: Start: 09-05-2022 End: 09-05-2022 ambulatory DO Rolando Ball Work Phone: [facility] Work Phone: Start: 09-05-2022 Office outpatient ne w 45 minutes Romain Mendoza [facility] Start: 09-05-2022 End: 09-05-2022 ambulatory Rolando Ball Facility:[facility] Start: 09-05-2022 End: 09-05-2022 Patient encounter procedure DO Rolando Ball Work Phone: [facility]-Ultrasound [facility] [place] Work Phone: Start: 09-01-2022 Registered Recurring DO Benjam in Ball Work Phone: [facility]-Cancer Center Work Phone: Start: 08-30-2022 End: 08-30-2022 ambulatory Angel Joyce Other [facility] [place] Other Start: 08-30-2022 Office outpatient vi sit 25 minutes Angel Joyce [facility] Start: 08-30-2022 Telephone encounter Angel Joyce [facility] Start: 08-29-2022 End: 08-30-2022 ambulatory Mickey GUERIN Facility:[facility] Start: 08-29-2022 End: 08-29-2022 Patient encounter procedure Mickey GUERIN [facility] Start: 08-17-2022 End: 08-17-2022 ambulatory Rolando Ball Facility:[facility] Start: 08-17-2022 End: 08-17-2022 ambulatory DO Rolando Ball Work Phone: [facility] Work Phone: Start: 08-17-2022 End: 08-17-2022 Patient encounter procedure DO Rolando Ball Work Phone: [facility] [place] Work Phone: Start: 08-13-2022 End: 08-13-2022 ambulatory Isidoro Mesa Facility:[facility] Start: 08-13-2022 End: 08-13-2022 Evaluation and management of inpatient DO Rolando Ball Work Phone: [facility] Work Phone: Start: 08-13-2022 End: 08-13-2022 observation encounter DO Rolando Ball Work Phone: [facility] Work Phone: Start: 08-02-2022 Telephone encounter [facility] Comment on above: Returning Patient's Call Start: 07-19-2022 Chart Update Rolando almaraz Work Phone: [facility] 250 DO Work Phone: Start: 07-19-2022 End: 07-19-2022 ambulatory Rolando Olivares Facility:[facility] Start: 07-19-2022 End: 07-19-2022 Patient encounter procedure DO Rolando Marshall Work Phone: [facility]-Electrodiagnostics Work Phone: Start: 07-19-[address] Rolando Olivares Facility:[id number] Start: 07-15-2022 Adult health examination Romain Mendoza Other [facility] [employer] [place] Other Start: 07-09-2022 End: 07-09-2022 Emergency department patient visit DO Rolando Olivares Work Phone: [facility]-Emergency Room Start: 07-05-[address] Rolando Olivares Facility: Start: 07-05-2022 Office outpatient vi sit 25 minutes Rolando Olivares Work Phone: [facility] 250 DO Work Phone: Start: 07-04-2022 End: 07-04-2022 ambulatory Angel Joyce Other [facility] [employer] [place] Other Start: 07-04-2022 Office outpatient vi sit 15 minutes Angel Joyce [facility] Start: 06-29-2022 End: 06-29-2022 ambulatory DO Rolando Ball Work Phone: [facility] Work Phone: Start: 06-29-2022 End: 06-29-2022 Patient encounter procedure DO Rolando Marshall Work Phone: [facility]-Lab [facility] [place] Start: 06-13-2022 End: 06-13-2022 Emergency department patient visit DO Rolando Ball Work Phone: [facility]-Emergency Room Start: 06-03-2022 End: 06-03-2022 Emergency department patient visit DO Rolando Ball Work Phone: [facility]-Emergency Room Start: 05-29-2022 End: 05-29-2022 ambulatory DO Rolando Ball Work Phone: [facility] Work Phone: Start: 05-29-2022 End: 05-29-2022 Registered Recurring DO Rolando Ball Work Phone: [facility]-Cancer Center Start: 05-23-2022 End: 05-23-2022 ambulatory Angel Joyce Other Shortlist Other Start: 05-23-2022 Office outpatient vi sit 25 minutes Angel Joyce [facility] Start: 05-21-2022 End: 05-22-2022 Emergency department patient visit DO Rolando Ball Work Phone: [facility]-Emergency Room Start: 05-18-2022 End: 05-18-2022 Admission to same day surgery center DO Rolando Ball Work Phone: [facility]-CT Scan [facility] [place] Start: 05-18-2022 End: 05-18-2022 ambulatory DO Rolando Ball Work Phone: [facility] Work Phone: Start: 05-15-2022 Registered Recurring DO Benjam in Ball Work Phone: [facility]-Cancer Center Start: 05-09-2022 End: 05-09-2022 Registered Recurring DO Rolando Ball Work Phone: [facility]-Cancer Center Start: 04-29-2022 End: 04-29-2022 ambulatory Angel Joyce Other Shortlist Other Start: 04-29-2022 Telephone encounter Angel Joyce [facility] Start: 04-20-2022 (INJECTION) INJECTION Angel Joyce [facility] Start: 04-20-2022 End: 04-20-2022 ambulatory Angel Joyce Other Shortlist Other Start: 04-20-2022 Telephone encounter Angel Joyce [facility] Start: 04-20-2022 End: 04-20-2022 Patient encounter procedure DO Rolando Olivares Work Phone: [facility]-Lab [facility] Start: 04-09-2022 End: 04-10-2022 Emergency department patient visit DO Rolando Olivares Work Phone: [facility]-Emergency Room Start: 04-04-2022 End: 04-04-2022 ambulatory Aziz Bakhous Other Shortlist Other Start: 04-04-2022 Telephone encounter Aziz Bakhous [facility] Start: 03-29-2022 End: 03-29-2022 ambulatory Angel Joyce Other Shortlist Other Start: 03-29-2022 Office outpatient vi sit 15 minutes Angel Joyce [facility] Start: 03-29-2022 Telephone encounter Angel Joyce [facility] Start: 03-14-2022 End: 03-14-2022 ambulatory Angel Joyce Other Shortlist Other Start: 03-14-2022 Telephone encounter Angel Joyce [facility] Start: 03-13-2022 End: 03-13-2022 Patient encounter procedure DO [facility] Start: 03-09-2022 End: 03-09-2022 Patient encounter procedure DO [facility]ando Olivares [facility] Start: 01-24-2022 Rx Renewal Rolando almaraz Work Phone: [facility] [facility] DO Work Phone: Start: 12-25-2021 End: 12-25-2021 Patient encounter procedure DO Rolando Marshall Work Phone: [facility]-Lab [facility] [place] Start: 12-19-2021 End: 12-19-2021 ambulatory Angel Joyce Other Shortlist Other Start: 12-19-2021 Office outpatient vi sit 25 minutes Angel Joyce [facility] Start: 12-18-2021 Registered Recurring DO Bg in Ball Work Phone: [facility]-Cardiac Rehabilitation Start: 12-15-2021 Rx Renewal Rolando Rodríguez almaraz Work Phone: [facility] 250 DO Work Phone: Start: 12-01-[address]SON [facility] ity:H1 Start: 11-24-2021 Transitional care manage srvc 7 day discharge Rolando Arreguin Marshall Work Phone: [facility] [facility] DO Work Phone: Start: 11-08-2021 End: 11-08-2021 ambulatory Angel Joyce Other Shortlist Other Start: 11-08-2021 Office outpatient ne w 45 minutes Angel Joyce [facility] Start: 11-07-2021 End: 11-07-2021 ambulatory Angel Joyce Other Shortlist Other Start: 11-07-2021 Telephone encounter Angel Joyce [facility] Start: 10-23-2021 End: 10-24-[address] ROLANDO OLIVARES Facility:H1 Start: 10-02-2021 End: 10-02-2021 ambulatory CLARKE ALLEN Facility:[facility] Start: 10-01-2021 End: 10-01-2021 Emergency department patient visit BRITTNI PAGAN Facility:[facility] Procedures Date Procedure Procedure Detail Performing Clinician Start: 06-17-2023 IR Fistulogram/TLA S tent (Left) DO [employer] Phone: Start: 06-13-2023 Ultrasonography of arteriovenous fistula DO [employer] Phone: Start: 04-12-2023 IR Fistulogram/TLA S tent (Left) DO [employer] Phone: Start: 04-10-2023 Ultrasonography of arteriovenous fistula DO [employer] Phone: Start: 02-27-2023 Ultrasonography of arteriovenous fistula DO [employer] Phone: Start: 02-04-2023 CL Stent 1st Vessel RCA JUAN C DO [employer] Phone: Start: 12-18-2022 Arteriovenous fistulization DO [employer] Phone: Start: 12-11-2022 IR Fistulogram/TLA S tent (Left) DO Mickey [employer] Work Phone: Start: 12-04-2022 IR Fistulogram/TLA S tent (Left) DO [employer] Phone: Start: 11-28-2022 Ultrasonography of arteriovenous fistula DO [employer] Phone: Start: 10-02-2022 Plain chest X-ray DO Nas [employer] Phone: Start: 09-17-2022 Arteriovenous fistulization DO Rolando [employer] Phone: Start: 09-05-2022 Ultrasound (US) dopp ler flow mapping of vein of upper limb DO [employer] Phone: Start: 08-13-2022 Plain chest X-ray DO Be brayan [employer] Phone: Start: 08-12-2022 CT of head without contrast DO Rolando [employer] Phone: Start: 06-13-2022 SARS-CoV-2, Influenz a & RSV (PCR) DO [employer] Phone: Start: 06-13-2022 Plain chest X-ray DO Be njamin [employer] Work Phone: Start: 06-03-2022 Plain chest X-ray DO Be njamin [employer] Work Phone: Start: 05-21-2022 Plain chest X-ray DO Be njamin Ball Work Phone: Start: 05-21-2022 Blood culture for bacteria, including anaerobic screen DO Rolando [employer] Work Phone: Start: 05-21-2022 SARS Antigen (LFIA) DO Rolando [employer] Work Phone: Start: 05-18-2022 Bone marrow sampling DO Rolando [employer] Work Phone: Start: 05-15-2022 Dual energy X-ray absorptiometry DO Rolando Olivares Work Phone: Start: 04-09-2022 Plain chest X-ray DO Be njamin [employer] Work Phone: Blood culture for bacteria, including anaerobic screen DO Rolando [employer] Work Phone: Cardiac catheterization Benj byron Arreguin [employer] Work Phone: Depression screening Romain Mendoza Other History of placement of stent for coronary artery disease Status post insertion of drug eluting coronary artery stent Rolando Arreguin [employer] Work Phone: History of placement of stent in anterior descending branch of left coronary artery History of placement of stent in LAD coronary artery DO Rolando [employer] Work Phone: LT knee scope [employer] Operative procedure on knee Rolando Arreguin [employer] Work Phone: Placement of stent i n cardiac conduit [employer] Surgical procedure o n eye proper Rolando Arreguin [employer] Work Phone: Vasectomy Rolando Arreguin [employer] Work Phone: Vasectomy [employer] NEGATED: Highlighted row has not occurred! Total colonoscopy Rolando Arreguin [employer] Work Phone: Plan of Treatment Date Care Activity Detail Author Start: 09-05-2023 FUV, Provider: Elder Gomez, Status: Pen, Time: 9:50 AM FUV, Provider: Elder Gomez, Status: Pen, Time: 9:50 AM [facility] 250 DO Work Phone: Start: 07-02-2023 Ultrasonography of arteriovenous fistula US AV Fistula [facility] Start: 07-02-2023 US AV fistula [facility] Start: 06-17-[address] [facility] Start: 06-13-2023 Ultrasonography of arteriovenous fistula US AV Fistula [facility] Start: 06-13-2023 US AV fistula [facility] Start: 04-12-[address] [facility] Start: 02-26-2023 FUV, Provider: Elder Gomez, Status: Pen, Time: 9:30 AM FUV, Provider: Elder Gomez, Status: Pen, Time: 9:30 AM -[facility] 250 DO Work Phone: Start: 02-04-2023 End: 02-04-[address] [facility] Start: 02-04-2023 SURGNONUH, Provider: Elder Gomez, Status: Pen, Time: 11:00 AM SURGNONUH, Provider: Elder Gomez, Status: Pen, Time: 11:00 AM -[facility] 250 DO Work Phone: Start: 01-09-[address] [facility] Start: 01-09-2023 Hospital admission [facility] Start: 01-09-2023 Referral to crawler tractor operator [facility] Start: 12-18-[address] [facility] Start: 12-18-[address] [facility] Start: 12-17-2022 FUV, Provider: Janine Gonzalez, Status: Pen, Time: 9:45 AM FUV, Provider: Janine Gonzalez, Status: Pen, Time: 9:45 AM -[facility] 250 DO Work Phone: Start: 12-11-[address] [facility] Start: 12-04-[address] [facility] Start: 11-28-2022 Ultrasonography of arteriovenous fistula US AV Fistula [facility] Start: 11-28-2022 US AV fistula [facility] Start: 11-14-2022 [facility], Provider: Elder Gomez, Status: Pen, Time: 2:00 PM SURGGALLO, Provider: Elder Gomez, Status: Pen, Time: 2:00 PM [facility] 250 DO Work Phone: Start: 11-14-2022 CL *Percutaneous Cor onary Interven(PCI) (Not Applicable) CL *Percutaneous Coronary Interven(PCI) (Not Applicable) [facility] Start: 10-07-2022 Blood chemistry [facility] Start: 10-07-[address] [facility] Start: 10-06-2022 Blood chemistry [facility] Start: 10-06-[address] [facility] Start: 10-05-2022 Blood chemistry [facility] Start: 10-05-[address] [facility] Start: 10-04-2022 Blood chemistry [facility] Start: 10-04-[address] [facility] Start: 10-04-2022 Creatine kinase [Enzymatic activity/volume] in Serum or Plasma [facility] Start: 10-04-2022 Troponin I.cardiac [Mass/volume] in Serum or Plasma by High sensitivity method [facility] Start: 10-03-2022 Blood chemistry [facility] Start: 10-03-2022 End: 10-03-[address] [facility] Start: 10-03-2022 Hospital admission [facility] Start: 10-03-2022 Referral to crawler tractor operator [facility] Start: 10-03-2022 Referral to tungsten refiner [facility] Start: 10-03-[address] [facility] Start: 10-02-2022 Plain chest X-ray XR chest 1V portab le [facility] Start: 10-02-2022 XR Chest Single view [facility] Start: 09-17-[address] [facility] Start: 09-17-[address] [facility] Start: 09-05-2022 Ultrasound (US) dopp ler flow mapping of vein of upper limb US venous mapping [facility] Start: 09-05-2022 US Upper extremity v ein - bilateral [facility] Start: 09-01-[address] [facility] Start: 08-19-2022 DEPRESSION ASSESSMENT DEPRESSION ASS ESSMENT [facility] Start: 08-18-2022 Blood chemistry [facility] Start: 08-17-2022 Blood chemistry [facility] Start: 08-17-[address] [facility] Start: 08-16-2022 Blood chemistry [facility] Start: 08-16-[address] [facility] Start: 08-15-2022 Blood chemistry [facility] Start: 08-15-[address] [facility] Start: 08-14-2022 Blood chemistry [facility] Start: 08-14-[address] [facility] Start: 08-13-[address] [facility] Start: 08-13-2022 Hospital admission [facility] Start: 08-13-2022 Referral to tungsten refiner [facility] Start: 08-13-[address] [facility] Start: 08-12-2022 CT of head without contrast CT head/brain wo con [facility] Start: 08-12-2022 CT Unspecified body region WO contrast [facility] Start: 05-18-2022 End: 05-18-[address] [facility] Start: 05-18-2022 Bone marrow sampling [facility] Start: 04-20-2022 [facility] Work Phone: Start: 04-20-2022 Patient encounter procedure Registered Clinical [facility] [place] Start: 04-19-2022 Influenza vaccination INFLUENZA (#1) [facility] Start: 04-09-2022 Plain chest X-ray XR chest 1V portab [facility] Start: 04-09-2022 End: 04-10-2022 Emergency department patient visit Departed Emergency [facility] Start: 02-22-2022 FUV, Provider: Elder Gomez, Status: Pen, Time: 11:10 AM -[facility] 250 DO Work Phone: Start: 08-19-2021 DEPRESSION ASSESSMENT DEPRESSION ASS ESSMENT [facility] Start: 2020 LIPID SCREEN LIPID SCREEN [facility] Start: 2004 Urine microalbumin profile DTAP,TDAP,TD (1 - Tdap) [facility] Start: 2003 HEPATITIS C SCREENING HEPATITIS C SC REENING [facility] Start: 2003 HIV SCREENING HIV SCREENING [facility] Start: 1991 PNEUMOCOCCAL (1 - PCV) PNEUMOCOCCAL (1 - PCV) [facility] Start: 1985 COVID-19 VACCINE (#1) COVID-19 VACCI NE (#1) [facility] Start: 1985 HEPATITIS B (1 of 3 - 3-dose series) HEPATITIS B (1 of 3 - 3-dose series) [facility] Anion gap measurement [facility] Basophils [#/volume] in Blood by Automated count [facility] Basophils/100 leukoc ytes in Blood by Automated count [facility] Blood chemistry [facility] Bone marrow sampling [facility] Work Phone: Calcium [Mass/volume ] in Serum or Plasma [facility] Carbon dioxide, tota l [Moles/volume] in Serum or Plasma [facility] Chloride [Moles/volu me] in Serum or Plasma [facility] Comprehensive metabo lic 1999 panel - Serum or Plasma [facility] Comprehensive metabo lic 1999 panel - Serum or Plasma [facility] Creatine kinase [Enzymatic activity/volume] in Serum or Plasma [facility] Creatine kinase [Enzymatic activity/volume] in Serum or Plasma [facility] Creatine kinase MB isoenzyme/total creatine kinase ratio measurement [facility] Creatine kinase MB isoenzyme/total creatine kinase ratio measurement [facility] Creatine kinase.MB [Mass/volume] in Serum or Plasma [facility] Creatine kinase.MB [Mass/volume] in Serum or Plasma [facility] Creatinine and Glome rular filtration rate.predicted panel - Serum, Plasma or Blood [facility] DXA Skeletal system. axial Views for bone density [facility] Work Phone: Eosinophils [#/volum e] in Blood [facility] Eosinophils/100 leukocytes in Blood by Automated count [facility] Erythrocyte distribu tion width [Ratio] by Automated count [facility] Erythrocytes [#/volu me] in Blood [facility] Glucose [Mass/volume ] in Serum or Plasma [facility] Hematocrit [Volume Fraction] of Blood [facility] Hemoglobin [Mass/vol ume] in Blood [facility] Hepatitis A virus antibody, IgM type [facility] Hepatitis B core ant ibody measurement, IgM type [facility] Hepatitis B virus ramon rface Ag [Presence] in Serum or Plasma by Immunoassay [facility] Hepatitis C virus Ig G Ab [Presence] in Serum or Plasma by Immunoassay [facility] Hepatitis C virus RN A [log units/volume] (viral load) in Serum or Plasma by HAO with probe detection [facility] Hepatitis C virus RN A [Units/volume] (viral load) in Serum or Plasma by HAO with probe detection [facility] Leukocytes [#/volume ] corrected for nucleated erythrocytes in Blood by Automated coun [facility] Leukocytes [#/volume ] in Blood [facility] Lymphocytes [#/volum e] in Blood by Automated count [facility] Lymphocytes/100 leukocytes in Blood by Automated count [facility] MCH [Entitic mass] b y Automated count [facility] MCHC [Mass/volume] b y Automated count [facility] MCV [Entitic volume] by Automated count [facility] Measurement of renal function [facility] Monocytes [#/volume] in Blood by Automated count [facility] Monocytes/100 leukoc ytes in Blood by Automated count [facility] Neutrophils [#/volum e] in Blood by Automated count [facility] Neutrophils/100 leukocytes in Blood by Automated count [facility] Nucleated erythrocyt es [Presence] in Blood by Automated count [facility] Patient Education [facility] Work Phone: Patient referral [facility] Work Phone: Platelet mean volume [Entitic volume] in Blood by Automated count [facility] Platelets [#/volume] in Blood [facility] Potassium [Moles/vol ume] in Serum or Plasma [facility] Sodium [Moles/volume ] in Serum or Plasma [facility] Troponin I.cardiac [Mass/volume] in Serum or Plasma by High sensitivity method [facility] Troponin I.cardiac [Mass/volume] in Serum or Plasma by High sensitivity method [facility] Urea nitrogen [Mass/volume] in Serum or Plasma [facility] URINALYSIS, REFLEX MICROSCOPIC URINALYSIS, REFLEX MICROSCOPIC Lab Routine Screening for genitourinary condition Ordered: 09/05/2022 [facility] Work Phone: Comment on above: Ordered: 09/05/2022 [facility] Payers Date Payer Category Payer Medicare [id number] 2023 Medicare [id number] 2022 Self-pay [id number] 2021 Medicaid MEDICAID [facility] MEDICAID [id number] 2021-Present [phone] [address] [place] [address] Medicaid [id number] 2021 Unknown 1985 Unknown [id number] 2.16.840.1.556425.3.579.2.5 93 1985 Unknown [id number] 2.16.840.1.251127.3.579.2.5 93 1985 Unknown [id number] 2.16.840.1.496461.3.579.2.5 93 1985 Unknown [id number] 2.16.840.1.718481.3.579.2.3 56 1985 Unknown [id number] 2.16.840.1.246961.3.579.2.3 56 1985 Unknown [id number] 2.16.840.1.808066.3.579.2.3 56 1985 Unknown [id number] 2.16.840.1.544051.3.579.2.3 56 1985 Unknown [id number] 2.16.840.1.704793.3.579.2.3 56 1985 Unknown [id number] 2.16.840.1.643545.3.579.2.3 56 1985 Unknown [id number] 2.16.840.1.144399.3.579.2.3 56 1985 Unknown [id number] 2.16.840.1.755974.3.579.2.3 56 1985 Unknown [id number] 2.840.1.244986.3.579.2.3 56 1985 Unknown [id number] 2.16.840.1.777531.3.579.2.7 27 1985 Unknown [id number] 2.16840.1.086395.3.579.2.1 259 1985 Unknown [id number] 2.16840.1.962224.3.579.2.1 259 1959 Blue Cross Blue Shield [id number] 2.840.1.495526.19 1959 Medicaid [id number] 1959 Self-pay [id number] Medicare Medicare [id number] Unknown [id number] 2.16840.1.578259.3.579.2.5 31 Unknown [id number] 2.16840.1.264150.3.579.2.5 31 Unknown [id number] 2.16.840.1.609891.3.579.2.5 31 Unknown [id number] 2.16.840.1.892340.3.579.2.5 31 Unknown [id number] 2.16.840.1.773193.3.579.2.5 31 Unknown [id number] 2.16.840.1.248053.3.579.2.5 31 Unknown [id number] 2.16.840.1.332430.3.579.2.5 31 Unknown [id number] 2.16.840.1.873774.3.579.2.5 31 Unknown [id number] 2.16.840.1.646766.3.579.2.5 31 Unknown [id number] 2.16.840.1.465802.3.579.2.5 31 Unknown [id number] 2.16.840.1.869787.3.579.2.5 31 Unknown [id number] 2.16.840.1.729385.3.579.2.5 31 Unknown [id number] 2.16.840.1.516021.3.579.2.5 31 Unknown [id number] 2.16.840.1.854108.3.579.2.5 31 Unknown [id number] 2.16.840.1.257000.3.579.2.5 31 Unknown [id number] 2.16.840.1.875725.3.579.2.5 31 Unknown [id number] 2.16.840.1.608564.3.579.2.5 31 Unknown [id number] 2.16.840.1.829132.3.579.2.5 31 Unknown [id number] 2.16.840.1.970917.3.579.2.5 31 Unknown [id number] 2.16.840.1.340583.3.579.2.5 31 Unknown [id number] 2.16.840.1.986301.3.579.2.5 31 Unknown [id number] 2.16.840.1.798367.3.579.2.5 31 Unknown [id number] 2.16.840.1.011108.3.579.2.5 31 Unknown [id number] 2.16.840.1.260710.3.579.2.5 31 Unknown [id number] 2.16.840.1.980006.3.579.2.5 31 Unknown [id number] 2.16.840.1.970275.3.579.2.5 31 Unknown [id number] 2.16.840.1.962547.3.579.2.5 31 Social History Date Type Detail Facility Current every day smoker Current every day smoker Shortlist Other Comment on above: 3 cigs daily; 1-2 Packs of cigaret josé daily; medical; 1 Pack of cigarettes daily; Sex Assigned At [facility] Start: 11-13-2021 End: 06-17-2023 Tobacco smoking status IDIS Smoker (finding) [facility] Start: 1985 Sex Assigned At Male [facility] Start: 10-02-2021 Tobacco smoking stat us [facility] Smokes tobacco daily [facility] Start: 10-02-2021 Tobacco use and exposure Smokeless tobacco non-user [facility] Start: 10-02-2021 Alcohol intake Ex-drinker (finding) [facility] Start: 1985 Sex Assigned At Not on file C [facility] Start: 08-13-2022 End: 09-17-2022 Tobacco smoking status [facility] Current Heavy tobacco smoker [facility] Tobacco smoking status Never [facility]u [facility] [place] Medical Equipment Procedure Code Equipment Code Equipment Origin al Text Equipment Identifier Dates Fistulogram Non-neurovascula r embolization coil ()[id number] FDA Start: 06-17-2023 Fistulogram Non-neurovascula r embolization coil ()[id number] FDA Start: 06-17-2023 Fistulogram Non-neurovascula r embolization coil ()[id number] FDA Start: 06-17-2023 Fistulogram Non-neurovascula r embolization coil ()[id number] FDA Start: 06-17-2023 Fistulogram Non-neurovascula r embolization coil ()[id number] FDA Start: 06-17-2023 Drug-eluting cor onary artery stent, zws-tqdznlibkoaaa-prho rosita-coated ()[id number] FDA Start: 11-16-2021 CL STENT SHARMAINE FR ONTIER 3.0 X 38 FDA Start: 02-04-2023 CL STENT SHARMAINE FR ONTIER 3.5 X 12 FDA Start: 02-04-2023 CL STENT SHARMAINE FR ONTIER 3.0 X 38 FDA Start: 02-04-2023 CL STENT SHARMAINE FR ONTIER 3.5 X 12 FDA Start: 02-04-2023 CL STENT SHARMAINE FR ONTIER 3.0 X 38 FDA Start: 02-04-2023 CL STENT SHARMAINE FR ONTIER 3.5 X 12 FDA Start: 02-04-2023 CL STENT SHARMAINE FR ONTIER 3.0 X 38 FDA Start: 02-04-2023 CL STENT SHARMAINE FR ONTIER 3.5 X 12 FDA Start: 02-04-2023 CL STENT SHARMAINE FR ONTIER 3.0 X 38 FDA Start: 02-04-2023 CL STENT SHARMAINE FR ONTIER 3.5 X 12 FDA Start: 02-04-2023 CL STENT SHARMAINE FR ONTIER 3.0 X 38 FDA Start: 02-04-2023 CL STENT SHARMAINE FR ONTIER 3.5 X 12 FDA Start: 02-04-2023 Goals Date Patient Goal Desired Activity /State Functional Status Date Assessment Result Facility 02-05-2023 Functional status Patient at [facility] Work Phone: 01-09-2023 Functional status Patient at [facility] Work Phone: 10-03-2022 Functional status Patient at [facility] Work Phone: 08-29-2022 Functional Status N/A [facility] 08-13-2022 Functional status Patient at [facility] Work Phone: Mental Status Date Assessment Result Facility 02-05-2023 Cognitive function Cognitive Sta tus Patient at Baseline [facility] Work Phone: 01-09-2023 Cognitive function Cognitive Sta tus Patient at Baseline [facility] Work Phone: 10-03-2022 Cognitive function Cognitive Sta tus Patient at Baseline [facility] Work Phone: 08-13-2022 Cognitive function Cognitive Sta tus Patient at Baseline [facility] Work Phone: Clinical Notes 10-02-2021 to 08-13-2023 Note Date & Type Note Facility 08-13-2023 Evaluation note Encounter Date Diagnosis Assessment Notes Jul, ASHD (arterioscleroti c heart disease) (ICD-10 - I25.10) This patient is stable without activity related CP, dyspnea or lightheadedness. They are instructed to continue exercise and AHA diet plan. Continue secondary prevention measures. Jul, Primary hypertension (ICD-10 - I10) This patient is instructed to consume a healthy, low-fat, low-salt diet. They are also encouraged to continue exercise to achieve/maintain a normal BMI. Jul, Type 1 diabetes mellitus with hyperglycemia (ICD-10 - E10.65) This patient is following a comprehensive diabetic treatment plan. They are checking their feet daily for calluses and nonhealing ulcers. They are being seen for yearly dilated eye examinations. Goals: SBP less than 130, LDL less than 100, FBS less than 140, A1C less than 7%. They are checking their BS daily, will which are reviewed at the office visit. Continue regular routine monitoring of A1C,] Microalbumin, Dilated eye exam and Foot exam Jul, Diabetic nephropathy associated with type 1 diabetes mellitus (ICD-10 - E10.21) Inspect feet daily for cuts and calluses.Recommen d diabetic shoes and inserts to prevent callus formation.Fall precautions. Jul, End stage renal disease (ICD-10 - N18.6) The patient is instructed on adequate control of hypertension and diabetes, if appropriate. They are also educated on the associated risks of NSAIDs and PPI use with kidney disease. They were instructed on adequate fluid balance and to avoid dehydration. Continue hemodialysis Jul, Mixed hyperlipidemia (ICD-10 - E78.2) Instructed on diet and exercise with continued statin therapy.Discussed the beneficial effects of lowering cholesterol in reducing the risk for cerebrovascular and cardiovascular disease. Jul, Dependence on renal dialysis (ICD-10 - Z99.2) Jul, Mild episode of recurrent major depressive disorder (ICD-10 - F33.0) Instructed on healthy diet and exercise. Switched to Zoloft w/o much w/d symptoms Hasn't notice much improvement over Lexapro Declines adjustment in dose or augmentation Shortlist Other 11-28-2023 Evaluation note* Encounter Date Diagnosis Assessment Notes Treatment Notes Treatment Clinical Notes Jun, ASHD (arteriosclerotic heart disease) (ICD-10 - I25.10) This patient is stable without activity related CP, dyspnea or lightheadedness. They are instructed to continue exercise and AHA diet plan. Continue secondary prevention measures. Jun, Primary hypertension (ICD-10 - I10) This patient is instructed to consume a healthy, low-fat, low-salt diet. They are also encouraged to continue exercise to achieve/maintain a normal BMI. Episodes of lightheadedness - days of dialysis he is instructed to hold morning antihypertensive - nondialysis days may need to reduce Hydralazine, discuss w/ Dr. Mejía Jun, Type 1 diabetes mellitus with hyperglycemia (ICD-10 - E10.65) This patient is following a comprehensive diabetic treatment plan. They are checking their feet daily for calluses and nonhealing ulcers. They are being seen for yearly dilated eye examinations. Goals: SBP less than 130, LDL less than 100, FBS less than 140, A1C less than 7%. They are checking their BS daily, will which are reviewed at the office visit. Continue regular routine monitoring of A1C,] Microalbumin, Dilated eye exam and Foot exam Jun, Diabetic nephropathy associated with type 1 diabetes mellitus (ICD-10 - E10.21) Inspect feet daily for cuts and calluses.Recommend diabetic shoes and inserts to prevent callus formation.Fall precautions. Jun, End stage renal disease (ICD-10 - N18.6) The patient is instructed on adequate control of hypertension and diabetes, if appropriate. They are also educated on the associated risks of NSAIDs and PPI use with kidney disease. They were instructed on adequate fluid balance and to avoid dehydration. Jun, Mixed hyperlipidemia (ICD-10 - E78.2) Instructed on diet and exercise with continued statin therapy.Discussed the beneficial effects of lowering cholesterol in reducing the risk for cerebrovascular and cardiovascular disease. Jun, Dependence on renal dialysis (ICD-10 - Z99.2) Continue hemodialysis M/W/F Jun, Mild episode of recurrent major depressive disorder (ICD-10 - F33.0) d/c Lexapro and start Sertraline. May need to titrate to higher dose. Jun, Decreased libido (ICD-10 - R68.82) Likely multifactorial: - medications - depression - co morbid conditions Jun, Peyronie's disease (ICD-10 - N48.6) He has been referred previously for this problem and was told his condition was minor. He is being referred a second time due to hx of increased pain and curvature. Discussed treatment options: - pentoxyifylline - NSAIDs (contra indicated w/ CAD, CKD) - injections - surgery Jun, Other Continue to fol low closely. No s/s GIB No bleed Shortlist Other 11-16-2023 Evaluation note* Encounter Date Diagnosis Assessment Notes Treatment Notes Treatment Clinical Notes Jun, AV fistula (ICD-10 - I77.0) The fistula looks good today. I suggest to continue using it. There was is 1 area in the middle of the fistula which potentially could be an area of stenoses. We like to keep an eye on this. The patient may need a future angioplasty in this location. We will see patient back in 2 months for checkup. Shortlist Other 10-30-2023 [facility] Encounter Date Diagnosis Assessment Notes Treatment Notes Treatment Clinical Notes May, AV fistula (ICD-10 - I77.0) I did examine the fistula. There does appear to be a competing outflow segment of the vein in the forearm. I suggest we try to either coil this or tied off. We will start with a less invasive option going to the [facility] for coil embolization of a cephalic venous tributary in the left forearm. This is explained to the patient he understands agrees with plan all his questions were addressed and the patient consents to this today. Shortlist Other 10-10-2023 Evaluation note* Encounter Date Diagnosis Assessment Notes Treatment Notes Treatment Clinical Notes May, ASHD (arteriosclerotic heart disease) (ICD-10 - I25.10) This patient is stable without activity related CP, dyspnea or lightheadedness. They are instructed to continue exercise and AHA diet plan. Continue secondary prevention measures. May, Type 1 diabetes mellitus with hyperglycemia (ICD-10 - E10.65) This patient is following a comprehensive diabetic treatment plan. They are checking their feet daily for calluses and nonhealing ulcers. They are being seen for yearly dilated eye examinations. Goals: SBP less than 130, LDL less than 100, FBS less than 140, A1C less than 7%. They are checking their BS daily, will which are reviewed at the office visit. Continue regular routine monitoring of A1C,] Microalbumin, Dilated eye exam and Foot exam May, End stage renal disease (ICD-10 - N18.6) Continue hemodialysis M/W/F Check w/ nurse to see if can check H/H, TSH and Testosterone May, Anemia of renal disease (ICD-10 - D63.1) < 10gms Continue treatment w/ Nephrology. Monitor monthly No s/s bleeding [facility]list Other 08-[facility]-[address] [facility] Encounter Date Diagnosis Assessment Notes Treatment Notes Treatment Clinical Notes Mar, Arteriovenous fistula occlusion, initial encounter (ICD-10 - T82.898A) The patient seems to have dual outflow tracts of his left upper extremity forearm AV fistula. I believe this may be contributing to difficulty with access. It may also be contributing to his pain. We will schedule a fistulogram to further investigate the fistula issues. Patient may have a component of stenoses also as he does have some lower flow velocities near the anastomosis. Patient understands agrees with plan all his questions were addressed. We will schedule this for Saturday. Shortlist Other 07-12-2023 Evaluation note* Encounter Date Diagnosis Assessment Notes Treatment Notes Treatment Clinical Notes Feb, Chronic kidney disea se, stage 5 (ICD-10 - N18.5) He has a CKD due to the DM and HTN. Patient reported uremic symptoms. His AVF has matured. He is interested in HD and agreed to initiate dialysis. I coordinated with the [facility] dialysis unit for his admission. Also gave order for his chronic dialysis treatment. 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 Advised him fluid restriction.Continue 40 mg daily. Continue current diabetes medication including Hydralazine, Imdur and carvedilol. I have advised him to monitor his blood pressure at home and call office if stays above 140/90 mmHg. If Bp stays high then will aid amlodipine. Feb, Hyperkalemia (ICD-10 - E87.5) He had hyperkalemia due to the advanced CKD. He stopped Lokelma. Continue low potassium diet. Feb, Anemia of renal dise ase (ICD-10 - D63.1) Hemoglobin is below the goal and has adequate iron stores. He will receive the weekly IV iron IV and Araneps IV with hemodialysis. Feb, Secondary hyperparathyroidism (ICD-10 - N25.81) He has a secondary hyperparathyroidism due to the vitamin D deficiency.and Hyperphosphatemia. Continue oral ergocalciferol. Continue oral Tums with each meal. Advising low phosphorus diet and provide information about him. Feb, Proteinuria (ICD-10 - R80.9) He has a proteinuria likely nephrotic range with the diabetic nephropathy. He had an mild elevated serum free light chain ratio likely due to the CKD. He has a monoclonal protein and was seen by hematology. He had a bone marrow biopsy Showed no Evidence of Myeloma or Amyloidosis. He has normal complement C3 and C4, MARYAM and ANCA serologies. Feb, Diabetes mellitus wi th chronic kidney disease (ICD-10 - E11.22) He has insulin-dependent type 2 diabetes mellitus. Continue to follow PCP for DM management. He was taken off of the losartan due to the advanced CKD and hyperkalemia Shortlist Other 06-26-2023 Evaluation note* Encounter Date Diagnosis Assessment Notes Treatment Notes Treatment Clinical Notes Jan, Chronic kidney disea se, stage 5 (ICD-10 - N18.5) He has a CKD due to the DM and HTN. His serum creatinine 5.3 mg/dL. His renal function has declined either due to the progression of his CKD in the setting of uncontrolled DM or maybe hemodynamic changes. He is interested in HD and currently has AV fistula which has been maturing. I have advised him to continue follow-up with vascular surgery. He has a mild uremic symptoms. No need to initiate hemodialysis now. I advised him that if he has severe uremic symptoms including persistent nausea vomiting then call office to initiate hemodialysis. 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 Advised him fluid restriction.Continue 40 mg daily. Continue current diabetes medication including Hydralazine, Imdur and carvedilol. I have advised him to monitor his blood pressure at home and call office if stays above 140/90 mmHg. If Bp stays high then will aid amlodipine. Jan, Hyperkalemia (ICD-10 - E87.5) He had hyperkalemia due to the advanced CKD. He stopped Lokelma. Continue low potassium diet. Jan, Anemia of renal dise ase (ICD-10 - D63.1) Hemoglobin is below the goal and has adequate iron stores. Continue Retacrit to keep hemoglobin 10 to 11 g/dL Jan, Secondary hyperparathyroidism (ICD-10 - N25.81) He has a secondary hyperparathyroidism due to the vitamin D deficiency.and Hyperphosphatemia. Continue oral ergocalciferol. Continue oral Tums with each meal. Advising low phosphorus diet and provide information about him. Jan, Proteinuria (ICD-10 - R80.9) He has a proteinuria likely nephrotic range with the diabetic nephropathy. He had an mild elevated serum free light chain ratio likely due to the CKD. He has a monoclonal protein and was seen by hematology. He had a bone marrow biopsy Showed no Evidence of Myeloma or Amyloidosis. He has normal complement C3 and C4, MARYAM and ANCA serologies. Jan, Diabetes mellitus wi th chronic kidney disease (ICD-10 - E11.22) He has insulin-dependent type 2 diabetes mellitus. Continue to follow PCP for DM management. He was taken off of the losartan due to the advanced CKD and hyperkalemia Shortlist Other 06-19-2023 Discharge summary Author Denilson Gomez [facility] February 04, 2023 5:27pm Note Date/Time February 04, 2023 5:16 pm [facility] [address] [place] [address] Discharge Summary Signed with Addenda Patient: Yoel Werner MR#: [id number] : 1985 Acct:[id number] Age/Sex: 37 / M Adm Date: 3 Loc: Room: Attending Dr: Denilson Gomez DO Copies to: DO Denilson Leblanc DO~ ADDENDUM1 Correction: Discharge diagnosis/final diagnosis successful PCI proximal/mid RCA x2 JUAN C Addendum Documented By: Denilson Gomez DO 02/04/231726 Addendum Signed By: <Electronically signed by Denilson Gomez DO> 02/04/23 172 Providers Date of Discharge: 02/04/23 Discharging Provider: Denilson Gomez Primary Care Provider: Rolando Olivares Discharge Diagnosis (1) Kidney failure: (2) History of placement of stent in LAD coronary artery: (3) GERD (gastroesophageal reflux disease): (4) Diabetes: Final Diagnosis Final Discharge Diagnosis: 1. ASHD 2. History of PCI LAD with prior anterior AL 3. Residual RCA disease 4. Stage IV/V chronic kidney disease 6. Type 1 diabetes mellitus 7. Successful PCI proximal/mid LAD x2 JUAN C Summary Hospital Course Hospital course: 37-year-old gentleman with severe coronary artery disease and type 1 diabetes mellitus status post anterior AL with revascularization of the LAD and residual RCA disease. Patient underwent elective PCI of the RCA x2 JUAN C without complications. Condition Condition at Discharge: Stable Status at Discharge Functional status at discharge: independent ambulation Overall status at discharge: patient is back to baseline Time Spent with Patient Time spent providing/coordinating discharge services (# min): 15 Surgeries and Procedures Operation Date: 02/04/23 11:15 <No data on this case meets the specified criteria> Complications Complications: None Diagnostic Studies Completed and Pending Studies Pending studies at discharge: 02/04/23 17:13 ECG 12 lead ECG Stat Exam Physical Exam Vital Signs: Temp Pulse Resp BP Pulse Ox O2 Del Method 97.2 F L 59 L 16 133/75 100 Room Air 02/04/23 07:58 02/04/23 07:58 02/04/23 07:58 02/04/23 07:58 02/04/23 07:58 02/04/23 08:00 Discharge Plan Discharge Plan Patient Disposition: Home Diet: Low-Cholesterol Additional Instructions: DISCHARGE INSTRUCTIONS FOR ANGIOPLASTY/CORONARY/PERIPHERAL/STENT IMPLANT FOR ADULT ANTICOAGULATION -Since the greatest risk of a blood clot forming with the stent occurs in the first 2-3 weeks after implantation, you will need to take anticoagulants for at least [?insert date or amount of time?]. ANTICOAGULATION MEDICATION [INSERT MEDICATION NAME: Aspirin 81mg once a day, Clopidogrel (Plavix) 75mg one tablet, STATIN MEDICATION [INSERT MEDICATION NAME: atorvastatin (Lipitor) 80 mg or rosuvastatin (Crestor) 40mg] [Bare Metal Stent (BMS) duration ] [Drug-Eluting Stent (JUAN C) duration] DO NOT discontinue Plavix/Aspirin during the first few months regardless of whatyou are advised by your family doctor or pharmacist, without first calling the crawler tractor operator who implanted the stent. If you require pain relief during this time, please take only ACETAMINOPHEN (TYLENOL)- NO additional aspirin or ibuprofen. DISCHARGE ACTIVITIES ARE FOLLOWS: First week after discharge: -Take it easy at home, no strenuous activity. -Do not lift or pull objects over 10-15 pounds, including children, and groceries for four weeks. If puncture site is at wrist do NOT lift more than three pounds for three days. - May walk up stairs. -May shower. -No excessive scrubbing of the affected site (groin). -May ride in car. -May resume sexual intercourse after 1-2 weeks. -No MRI for 12 days. -May drive in 4-7 days. -If puncture site is at the wrist do not manipulate the wrist for 24 hours, and no soaking wrist for three days. Second Week: -May take a bath -May start walking 3 times a week for 15-20 minutes at a leisurely pace. You should be able to carry on a conversation comfortably without feeling winded. -No strenuous activity as in jogging, running, weight lifting, stair steppers, etc. until the crawler tractor operator approves these activities. Check with the crawler tractor operator on your first follow-up visit. CALL YOUR PHYSICIAN at [phone]: -If bleeding should occur from the catheter insertion site- apply pressure to the site then immediately call us. -Report any fever, redness, drainage, increased swelling, or firmness at the catheter insertion site. Some bruising or slight swelling may be present at thetime of discharge. -Should arm or leg become cold, numb, white, or blue, contact the crawler tractor operator immediately. -IF you should experience episodes of angina, e.g. chest discomfort, heaviness, tightness, pressure burning with or without radiation to the neck, jaw, arms or back- use 1 Nitrostat tablet under your tongue every 5-10 minutes and up to three tablets. IF NO RELIEF, CALL 911 or GO TO THE NEAREST EMERGENCY ROOM. -Please notify our office if you have recurrent angina. -[Cardiac Rehab Education Provided. Participation in the Cardiopulmonary Rehabilitation program is recommended. Please call Central Scheduling at [phone] to schedule your appointment.] The attending crawler tractor operator or [facility] nurse clinician should provide you with specific instructions regarding activity, diet, medications, and further follow up for you. Follow the medication instructions provided on your discharge. If the dosages and instructions on this sheet differ from the dosage and instructions on the bottle, follow the instructions on the bottle. [facility] is not responsible for incorrect prescription information provided by thepatient during their visit. Do not stop your medications without consulting your health care provider. Please take the list with you to your next doctor's appointment. Prescriptions: Continued famotidine 20 mg tablet 40 mg PO QHS escitalopram oxalate 10 mg tablet 10 mg PO QHS atorvastatin 80 mg Tablet 80 mg PO QPM 30 Days Qty: 30 12RF nitroglycerin 0.4 mg Tablet, Sublingual 0.4 mg sublingual Q5MIN.X3 PRN (Reason: Chest Pain) 30 Days Qty: 25 3RF omeprazole 40 mg capsule,delayed release(DR/EC) 40 mg PO QAM insulin lispro [Humalog U-100 Insulin] 100 unit/mL Solution 1 sliding scale dose SUBCUT USEASDIRECTD furosemide 40 mg tablet 40 mg PO QAM clopidogrel [Plavix] 75 mg tablet 75 mg PO QAM Patient Comments: has been holding since Saturday aspirin [Children's Aspirin] 81 mg tablet,chewable 81 mg PO QAM hydralazine 50 mg Tablet 50 mg PO TID 30 Days Qty: 90 12RF isosorbide mononitrate 60 mg tablet extended release 24 hr 60 mg PO BID ergocalciferol (vitamin D2) 1,250 mcg (50,000 unit) capsule 1,250 mcg PO QWEEK Patient Comments: TAKE 1 CAPSULE BY MOUTH ONCE A WEEK, Mondays Retacrit 20,000 unit/mL solution 20,000 unit subcut QMONTH Patient Comments: as needed loratadine 10 mg tablet 10 mg PO DIRECTED Patient Comments: TAKE 1 TABLET BY MOUTH EVERY OTHER DAY FOR 90 DAYS carvedilol [Coreg] 25 mg tablet 25 mg PO BID Qty: 60 3RF Rx Instructions: must administer with a meal/food Follow Up: Denilson Gomez DO [Active Staff - D.O.] - 02/26/23 9:30 am Documented By: Denilson Gomez DO 02/04/231713 Signed By: <Electronically signed by Denilson Gomez DO> 02/04/231717 [facility] Work Phone: [phone]) 942-398406-19-[address] [facility]* Encounter Date Diagnosis Assessment Notes Treatment Notes Treatment Clinical Notes Jan, AV fistula (ICD-10 - I77.0) I am very pleased with this patient's progress he is doing very well after revision. This looks like an excellent fistula. We will see him back in 4 to 6 weeks with a fistula duplex to evaluate the velocities. I believe this patient is almost ready for use if and when needed. He is pleased with his outcome and care. Shortlist Other 04-25-[address] [facility]* Encounter Date Diagnosis Assessment Notes Treatment Notes Treatment Clinical Notes Nov, Anemia in chronic kidney disease (ICD-10 - D63.1) Nov, Chronic kidney disease, stage 5 (ICD-10 - N18.5) Shortlist Other 04-12-2023 Evaluation note* Encounter Date Diagnosis Assessment Notes Treatment Notes Treatment Clinical Notes Nov, AV fistula (ICD-10 - I77.0) The patient does continue with a bit of left thumb numbness however he is not having any pain. His hand function is adequate and he is able to still play his guitar daily. We reviewed today's graft flow scan of the left Deo fistula which shows a nicely developed fistula with size ranging from 0.5-2 0.74 cm throughout its course. The flows however are slightly decreased about the mid fistula region. I reviewed the graft flow scan with Dr. Aguilar and Dr. Mendoza's absence and he recommends scheduling him for fistulogram to ensure the fistula is ready for use. The patient is not currently in need of hemodialysis and following closely with nephrology for periodic monitoring of his renal function which patient tells me continues to deteriorate. He is feeling much more tired and worn out lately with reports of more kidney pain . We will get him scheduled in the near future for intervention. Shortlist Other 04-03-2023 Evaluation note* Encounter Date Diagnosis Assessment Notes Treatment Notes Treatment Clinical Notes Nov, Chronic kidney disea se, stage 5 (ICD-10 - N18.5) He has a CKD due to the DM and HTN. His serum creatinine 4.9 mg/dL. His renal function has declined either due to the progression of his CKD in the setting of uncontrolled DM or maybe hemodynamic changes. He is interested in HD and currently has AV fistula which she has been maturing. I have advised him to continue follow-up with vascular surgery. He has a mild uremic symptoms. No need to initiate hemodialysis now. I advised him that if he has serum symptoms including persistent nausea vomiting then call office to initiate hemodialysis. 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 Advised him fluid restriction.Continue 40 mg daily. Continue current diabetes medication including losartan and carvedilol. I have advised him to monitor his blood pressure at home and call office if stays above 140/90 mmHg. If Bp stays high then will aid amlodipine. Nov, Hyperkalemia (ICD-10 - E87.5) He had hyperkalemia due to the advanced CKD and losartan. He was prescribed Lokelma and Losartan was stopped . We will repeat the renal function today. He was also educated about low potassium diet. Nov, Anemia of renal dise ase (ICD-10 - D63.1) Hemoglobin is below the goal and has adequate iron stores. We will start Retacrit to keep hemoglobin 10 to 11 g/dL once improve by insurance Nov, Secondary hyperparathyroidism (ICD-10 - N25.81) He has a secondary hyperparathyroidism due to the vitamin D deficiency.and Hyperphosphatemia. Continue oral ergocalciferol. Continue oral Tums with each meal. Advising low phosphorus diet and provide information about him. Nov, Proteinuria (ICD-10 - R80.9) He has a proteinuria likely nephrotic range with the diabetic nephropathy. He had an mild elevated serum free light chain ratio likely due to the CKD. He has a monoclonal protein and was seen by hematology. He had a bone marrow biopsy Showed no Evidence of Myeloma or Amyloidosis. He has normal complement C3 and C4, MARYAM and ANCA serologies. Nov, Diabetes mellitus wi th chronic kidney disease (ICD-10 - E11.22) He has insulin-dependent type 2 diabetes mellitus. Continue to follow PCP for DM management. He was taken off of the losartan due to the advanced CKD. Shortlist Other 03-27-2023 Evaluation note* Encounter Date Diagnosis Assessment Notes Treatment Notes Treatment Clinical Notes Oct, Primary hypertension (ICD-10 - I10) Shortlist Other 03-07-2023 Evaluation note* Encounter Date Diagnosis Assessment Notes Treatment Notes Treatment Clinical Notes Oct, Type 1 diabetes mellitus with hyperglycemia (ICD-10 - E10.65) Shortlist Other 02-28-2023 Evaluation note* Encounter Date Diagnosis Assessment Notes Treatment Notes Treatment Clinical Notes Sep, Proteinuria (ICD-10 - R80.9) He has a proteinuria likely nephrotic range with the diabetic nephropathy. He had an mild elevated serum free light chain ratio likely due to the CKD. He has a monoclonal protein and was seen by hematology. He had a bone marrow biopsy Showed no Evidence of Myeloma or Amyloidosis. He has normal complement C3 and C4, MARYAM and ANCA serologies. Sep, Chronic kidney disea se, stage 5 (ICD-10 - N18.5) He has a CKD due to the DM and HTN. His serum creatinine 4.6 mg/dL. His renal function has declined either due to the progression of his CKD in the setting of uncontrolled DM or maybe hemodynamic changes. He is interested in HD and currently has AV fistula which she has been maturing. I have advised him to continue follow-up with vascular surgery. He has a mild uremic symptoms. No need to initiate hemodialysis now. I advised him that if he has serum symptoms including persistent nausea vomiting then call office to initiate hemodialysis. 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 Advised him fluid restriction.Continue 40 mg daily. Continue current diabetes medication including losartan and carvedilol. I have advised him to monitor his blood pressure at home and call office if stays above 140/90 mmHg. If Bp stays high then will aid amlodipine. Sep, Anemia of renal dise ase (ICD-10 - D63.1) Hemoglobin is below the goal and has adequate iron stores. We will continue Retacrit to keep hemoglobin 10 to 11 g/dL once improve by insurance Sep, Secondary hyperparathyroidism (ICD-10 - N25.81) He has a secondary hyperparathyroidism due to the vitamin D deficiency.and Hyperphosphatemia. Continue oral ergocalciferol. I have prescribed oral Tums with each meal. Advising low phosphorus diet and provide information about him. Sep, Diabetes mellitus wi th chronic kidney disease (ICD-10 - E11.22) He has insulin-dependent type 2 diabetes mellitus. Continue to log PCP for DM management. Continue losartan for renal protection. Shortlist Other 02-22-2023 Evaluation note* Encounter Date Diagnosis Assessment Notes Treatment Notes Treatment Clinical Notes Sep, AV fistula (ICD-10 - I77.0) Patient has gotten along well since creation of his left Deo fistula. He has a bit of numbness remaining of the left thumb but is noticing improvement overall. He is not yet in need of hemodialysis and following closely with his nephrology specialist for monitoring of his renal function. He tells me he has upcoming appointment with him next week. His fistula is forming nicely, we will bring him back in 6 or 8 weeks for a graft flow scan to monitor his maturation process. He knows to call us in the meantime with any issues or concerns whatsoever. Shortlist Other 02-20-2023 Evaluation note* Encounter Date Diagnosis Assessment Notes Treatment Notes Treatment Clinical Notes Sep, Type 1 diabetes mellitus with hyperglycemia (ICD-10 - E10.65) This patient is following a comprehensive diabetic treatment plan. They are checking their feet daily for calluses and nonhealing ulcers. They are being seen for yearly dilated eye examinations. Goals: SBP less than 130, LDL less than 100, FBS less than 140, AC and A1C less than 7%. They are checking their BS daily, will which are reviewed at the office visit. Continue to monitor closely w/ CGM f/u Endocrine Sep, ASHD (arteriosclerotic heart disease) (ICD-10 - I25.10) This patient is stable without activity related CP, dyspnea or lightheadedness. They are instructed to continue exercise and AHA diet plan. Sep, Stage 5 chronic kidney disease not on chronic dialysis (ICD-10 - N18.5) The patient is instructed on adequate control of hypertension and diabetes, if appropriate. They are also educated on the associated risks of NSAIDs and PPI use with kidney disease. They were instructed on adequate fluid balance and to avoid dehydration. f/u Nephrology Sep, Diabetic nephropathy associated with type 1 diabetes mellitus (ICD-10 - E10.21) Sep, Primary hypertension (ICD-10 - I10) This patient is instructed to consume a healthy, low-fat, low-salt diet. They are also encouraged to continue exercise to achieve/maintain a normal BMI. Comply w/ treatment, f/u Cardiology Sep, Cigarette nicotine dependence without complication (ICD-10 - F17.210) Smoking cessation discussed. This patient has been encouraged to quit tobacco use immediately. They are aware of the hazards associated with tobacco use, including but not limited to respiratory infections, vascular disease and cancers. Sep, EBENEZER (generalized anxiety disorder) (ICD-10 - F41.1) Healthy diet, exercise, keep active Sep, Anemia in chronic kidney disease (ICD-10 - D63.1) Shortlist Other 02-15-2023 Progress note Author Ross Catherine [facility] October 03, 2022 2:51pm Note Date/Time October 03, 2022 2:48pm [facility] [address] [place] [address] Hospitalist Progress Note Signed Patient: Yoel Werner MR#: [id number] : 1985 Acct:[id number] Age/Sex: 37 / M Adm Date: 3 Loc: Room: [address] [place] [address] Type: ADM INOo Attending Dr: Ross Catherine MD Copies to: ~ Date of Service: 10/03/2022 Subjective Subjective Narrative: The patient denies any chest pain today Exam Physical Exam Vital Signs: Temp Pulse Resp BP Pulse Ox O2 Del Method 97.9 F 77 16 171/90 H 98 Room Air 10/03/22 11:46 10/03/22 11:46 10/03/22 11:46 10/03/22 11:46 10/03/22 11:46 10/03/22 11:46 Narrative: Physical Examination: GENERAL APPEARANCE: Alert, up in bed AAOx3 HEENT: NCAT, MMM NECK: Neck soft w/o masses, no JVD CARDIAC: Normal S1 and S2. No S3, S4 or murmurs. LUNGS: Clear to auscultation bilaterally. no wheeze/rhonchi/rales ABDOMEN: Positive bowel sounds. Soft, nontender. No guarding or signs of an acute abdomen MUSCULOSKELETAL: No joint erythema or tenderness. EXTREMITIES: No clubbing, cyanosis or edema PSYCHIATRIC: Appropriate mood and affect Objective Lab Results 10/03/22 04:41 10/03/22 04:41 Meds Allergies and Active Meds Allergies No Known Allergies Allergy (Verified 10/03/22 01:00) Active Meds: Active Medications Generic Name Dose Route Start Last Admin Trade Name Freq PRN Reason Stop Dose Admin Aspirin 81 mg 10/04/22 09:00 Aspirin 81 Mg Tab.Chew PO 10/04/23 08:59 QAM [facility] Atorvastatin Calcium 80 mg 10/03/22 21:00 Atorvastatin 80 Mg Tablet PO 10/03/23 20:59 QPM [facility] Carvedilol 12.5 mg 10/03/22 17:00 Carvedilol 12.5 Mg Tablet PO 10/03/23 16:59 BID.WITH.MEALS [facility] Clopidogrel Bisulfate 75 mg 10/04/22 09:00 Clopidogrel Bisulfate 75 Mg Tablet PO 10/04/23 08:59 QAM [facility] Ergocalciferol 1,250 mcg 10/10/22 09:00 Ergocalciferol 1,250 Mcg (50,000 Units) Capsule PO 10/10/23 08:59 We@0900 [facility] Escitalopram Oxalate 10 mg 10/03/22 22:00 Escitalopram 10 Mg Tablet PO 10/03/23 21:59 QHS [facility] Famotidine 40 mg 10/03/22 22:00 Famotidine 20 Mg Tablet PO 10/03/23 21:59 QHS [facility] Furosemide 40 mg 10/04/22 09:00 Furosemide 40 Mg Tablet PO 10/04/23 08:59 QAM [facility] Hydralazine HCl 50 mg 10/03/22 22:00 Hydralazine 50 Mg Tablet PO 10/03/23 21:59 TID [facility] Insulin Glargine 12 units 10/04/22 09:00 Insulin Glargine 300 Units/3 Ml Insuln.Pen SUBCUT 10/04/23 08:59 QAM [facility] Insulin Human Lispro unit 10/03/22 14:45 Insulin Lispro (Rashard/Ed Only) 300 Unit/3 Ml Vial SUBCUT 10/03/23 14:44 USEASDIRECTD [facility] Isosorbide Mononitrate 30 mg 10/03/22 22:00 Isosorbide Mononitrate 24hr Er 30 Mg Tab.Er.24h PO 10/03/23 21:59 QHS [facility] Nitroglycerin 0.4 mg 10/03/22 14:31 Nitroglycerin 0.4 Mg Tab.Subl SUBLINGUAL 10/03/23 14:30 Q5MIN.X3 PRN Chest Pain Pantoprazole Sodium 40 mg 10/04/22 09:00 Pantoprazole 40 Mg Tablet. PO 10/04/23 08:59 QAM [facility] Sodium Chloride 0 ml 10/03/22 01:40 10/03/22 01:40 Sodium Chloride 0.9 % 10 Ml Syringe IV-PUSH 10/03/23 01:39 20 ml PRN PRN Administration Flush A&P - Hospitalist Assessment/Plan (1) Chest pain: Plan Assessment and plan: 1. Chest pain rule out ACS, coronary artery disease status post angioplasty Troponins flat at 18x2. Consult to cardiology. No indication for heparin drip at this time. His regularly prescribed dual antiplatelet therapy at home can becontinued. 2. End-stage renal disease No acute indications for hemodialysis. Fistula created 2 weeks ago is healing well with a palpable thrill however likely needs longer for maturation. Electrolytes within normal limits. No hypoxia. He describes some nausea he attributes to uremia. 3. Anemia Presumably due to ESRD. Remains stable. 4. Nicotine abuse We will provide nicotine patch. 5. Insulin-dependent diabetes mellitus Continue home insulin regimen. ACHS Accu-Cheks. The patient is pain-free, he will be discharged home if cleared by cardiology Documented By: Ross Catherine MD 10/03/22 1445 Signed By: <Electronically signed by Ross Catherine MD> 10/03/22 1451 [facility] Work Phone: [phone] 784-183602-15-2023 History and physical note Author Evert Renae [facility] October 03, 2022 4:54am Note Date/Time October 03, 2022 4:38am [facility] [address] [place] [address] Hospitalist H&P Signed Patient: Yoel Werner MR#: [id number] : 1985 Acct:[id number] Age/Sex: 37 / M Adm Date: 3 Loc: 4 Room: [address] [place] [address] Type: ADM IN Attending Dr: Evert Renae DO Copies to: DO Evert Leblanc, ~ HPI DATE OF EXAMINATION: 10/03/22 CHIEF COMPLAINT: Chest pain HISTORY OF PRESENT ILLNESS: Patient is a 37-year-old male with a history of CAD status post PCI to the LAD who presented to the emergency department with an acute onset of chest pain starting 2 hours prior to his arrival. He states he also had chest pain a couple days ago. The episode occurring today however became increasingly severewith shortness of breath. Describes it as an elephant sitting on his chest. Furthermore he had a AV fistula performed roughly 2 weeks ago which has not completely healed yet for preparations for dialysis. In the emergency department his vitals revealed temperature 97.8 ?F, heart rate of 79, respirations 18/min, blood pressure 188/89, 99% on room air. CBC reveals anemiaof chronic kidney disease with an H&H of 8.3/23.8%. Chemistries reveal sodium of 135, BUN/creatinine 54/4.16. INR is 1.0. High-sensitivity troponin is 18x2. EKG is reportedly dynamic in its appearance on serial readings. He was provided 324 mg of aspirin and a nitroglycerin transdermal patch. He was admitted to the progressive unit for further evaluation and cardiology consultation. Physical Examination: GENERAL APPEARANCE: Alert, up in bed AAOx3 HEENT: NCAT, MMM NECK: Neck soft w/o masses, no JVD CARDIAC: Normal S1 and S2. No S3, S4 or murmurs. LUNGS: Clear to auscultation bilaterally. no wheeze/rhonchi/rales ABDOMEN: Positive bowel sounds. Soft, nontender. No guarding or signs of an acute abdomen MUSCULOSKELETAL: No joint erythema or tenderness. EXTREMITIES: No clubbing, cyanosis or edema PSYCHIATRIC: Appropriate mood and affect Assessment and plan: 1. Chest pain rule out ACS, coronary artery disease status post angioplasty Troponins flat at 18x2. Consult to cardiology. No indication for heparin drip at this time. His regularly prescribed dual antiplatelet therapy at home can becontinued. 2. End-stage renal disease No acute indications for hemodialysis. Fistula created 2 weeks ago is healing well with a palpable thrill however likely needs longer for maturation. Electrolytes within normal limits. No hypoxia. He describes some nausea he attributes to uremia. 3. Anemia Presumably due to ESRD. Remains stable. 4. Nicotine abuse We will provide nicotine patch. 5. Insulin-dependent diabetes mellitus Continue home insulin regimen. ACHS Accu-Cheks. Review of Systems Review of Systems All other systems reviewed & are negative unless noted below or in HPI PMFSH Vaccinated for COVID-19?: Unknown Medical History Anemia Anxiety Asthmatic bronchitis , chronic CHF (congestive heart failure) COVID history of Diabetes type 1 Diabetic retinopathy GERD (gastroesophageal reflux disease) not being treated currently History of blood transfusion 2020 History of myocardial infarction 2021 History of placement of stent in LAD coronary artery 2021 Hypercholesterolemia Hypertension Kidney failure MGUS (monoclonal gammopathy of unknown significance) PTSD (post-traumatic stress disorder) Smoker Triple vessel disease of the heart Surgical History H/O eye surgery left repair retina Hx of knee surgery scope at age 17 Hx of vasectomy 7yrs ago Family History Mother Diabetes Liver disease Father Stroke HTN (hypertension) IBS (irritable bowel syndrome) Social History Smoking Status: Current every day smoker Tobacco Type: cigarettes Substance Use Type: None Meds Medications and Allergies Allergies No Known Allergies Allergy (Verified 10/03/22 01:00) Home Medications insulin glargine 100 unit/mL (3 mL) subcutaneous pen (Basaglar KwikPen U-100 Insulin) 12 unit subcut QAM 09/11/21 [History Confirmed 10/03/22] carvedilol 12.5 mg tablet 12.5 mg PO BID 11/13/21 [History Confirmed 10/03/22] escitalopram oxalate 10 mg tablet 10 mg PO QHS 11/13/21 [History Confirmed 10/03/22] famotidine 20 mg tablet 40 mg PO QHS 11/13/21 [History Confirmed 10/03/22] atorvastatin 80 mg tablet 80 mg PO QPM 30 days #30 tabs 11/17/21 [Rx Confirmed 10/03/22] nitroglycerin 0.4 mg sublingual tablet 0.4 mg sublingual Q5MIN.X3 PRN Chest Pain30 days #25 tabs 11/17/21 [Rx Confirmed 10/03/22] hydralazine 25 mg tablet 50 mg PO TID 30 days #180 tabs 11/18/21 [Rx Confirmed 10/03/22] epoetin alexus-epbx 20,000 unit/mL injection solution (Retacrit) 20,000 unit subcut QMONTH 08/22/22 [History Confirmed 10/03/22] ergocalciferol (vitamin D2) 1,250 mcg (50,000 unit) capsule 1,250 mcg PO QWEEK 04/09/22 [History Confirmed 10/03/22] omeprazole 40 mg capsule,delayed release 40 mg PO QAM 05/09/22 [History Confirmed 10/03/22] insulin lispro 100 unit/mL subcutaneous solution (Humalog U-100 Insulin) 1 sliding scale dose subcut USEASDIRECTD 05/29/22 [History Confirmed 10/03/22] isosorbide mononitrate 30 mg tablet,extended release 24 hr 30 mg PO QHS 07/09/22[History Confirmed 10/03/22] aspirin 81 mg chewable tablet (Children's Aspirin) 81 mg PO QAM 09/10/22 [History Confirmed 10/03/22] clopidogrel 75 mg tablet (Plavix) 75 mg PO QAM 09/10/22 [History Confirmed 10/03/22] furosemide 40 mg tablet 40 mg PO QAM 09/10/22 [History Confirmed 10/03/22] Exam Physical Exam Vital Signs: Temp Pulse Resp BP Pulse Ox O2 Del Method 98.0 F 72 18 172/89 H 98 Room Air 10/03/22 03:52 10/03/22 03:52 10/03/22 03:52 10/03/22 03:52 10/03/22 03:52 10/03/22 03:52 Results Lab Results Labs: Laboratory Last Values Corrected WBC 7.2 X10E3/uL (4.1-10.5) 10/02/22 23:35 Uncorrected WBC Count 7.2 x10E3/uL (4.1-10.5) 10/02/22 23:35 RBC 2.74 X10E6/uL (3.90-5.60) L 10/02/22 23:35 Hgb 8.3 g/dL (13.0-17.0) L 10/02/22 23:35 Hct 23.8 % (38.8-50.0) L 10/02/22 23:35 MCV 87.1 fl (83.5-101) 10/02/22 23:35 MCH 30.4 pg (27.5-35.2) 10/02/22 23:35 MCHC 34.9 g/dL (32.5-35.6) 10/02/22 23: RDW 13.2 % (12.0-14.8) 10/02/22: Plt Count 185 x10E3/uL (150-450) 10/02/22 23: MPV 8.2 fl (6.6-10.1) 10/02/22 23: Neut % (Auto) 70.2 % (.) 10/02/22: Lymph % (Auto) 19.9 % (.) 10/02/22: [place] % (Auto) 5.5 % (.) 10/02/22: Eos % (Auto) 2.7 % (.) 10/02/22 Baso % (Auto) 1.7 % (.) 10/02/22: Nucleat RBC Rel Count 0.0 /100 WBC (0-0.5) 10/02/22: Neut # (Auto) 5.1 x10E3/uL (1.8-7.7) 10/02/22: Lymph # (Auto) 1.4 x10E3/uL (1.00-4.8) 10/02/22:35 [place] # (Auto) 0.4 x10E3/uL (0.0-0.8) 10/02/22: Eos # (Auto) 0.2 x10E3/uL (0.0-0.45) 10/02/22: Baso # (Auto) 0.1 x10E3/uL (0.0-0.2) 10/02/22: Monocyte Dist Width 14.39 % (0.00-20.00) 10/02/22: PT 12.1 Seconds (9.0-12.9) 10/02/22 23: INR 1.0 10/02/22: APTT 37.1 Seconds (25.1-36.5) H 10/03/22 01:39 PHA Creatinine Clear 25.83 10/02/22 23:35 Sodium 135 mmol/L (136-146) L 10/02/22 23: Potassium 4.4 mmol/L (3.5-5.1) 10/02/22 23:35 Chloride 103 mmol/L (95-114) 10/02/22 23:35 Carbon Dioxide 21.3 mmol/L (22.0-30.0) L 10/02/22 23:35 Anion Gap 15.1 mEq/L (6.0-15.0) H 10/02/22 23:35 BUN 54 mg/dL (9-23) H 10/02/22 23:35 Creatinine 4.16 mg/dL (0.64-1.27) H 10/02/22 23:35 Est GFR ( Amer) 20 mL/Min 10/02/22 23:35 Est GFR (Non-Af Amer) 16 mL/Min 10/02/22 23:35 Glucose 223 mg/dL (70-100) H 10/02/22 23:35 POC Glucose 307 mg/dl 10/03/22 04:18 Calcium 8.2 mg/dL (8.2-10.2) 10/02/22 23:35 Total Creatine Kinase 243 U/L (22-269) 10/03/22 02:28 CK-MB (CK-2) 5.9 ng/mL (0.6-6.3) 10/03/22 02:28 CK-MB (CK-2) Rel Index 2.4 % (0.00-2.50) 10/03/22 02:28 Troponin I High Sens 18 pg/mL (0-20) 10/03/22 02:28 B-Natriuretic Peptide 381.0 pg/mL (5-100) H 10/02/22 23:35 Documented By: Evert Renae DO 10/03/22 04 35 Signed By: <Electronically signed by Evert Renae DO> 10/03/22 0453 [facility] Work Phone: 1(461) 127-925101-30-[address] [facility] Progress note Author Haydee Lira [facility] September 12, 2022 3:35pm Note Date/Time September 10, 2022 5 :14pm [facility] at [address] [address] Hem/Onc Follow Up Note - OP Signed Patient: Yoel Werner MR#: [id number] : 1985 Acct:[id number] Age/Sex: 37 / M Type: REG RCR Copies to: MD Rolando Castellano DO~ Subjective Date/Time of Service: Date of Service: 09/10/2022 Time of Service: 17:07 Chief Complaint: Patient is here today for a 3 month follow up visit for MGUS and go over labs HPI: INTERVAL HISTORY: 09/10/2022 Yoel is here for interval 3 month follow up with repeat labs. His kappa/lambda light chains remain elevated - but overall stable. K:L ratio is 1.65. SPEP with no evidence of M-spike. Renal function is stable; but patient reports he will be having AV fistula access placed next week in anticipation of kidney dialysis in the future. patient is also stressed out and tired because heis going through a divorce. Denies any new bone pain or other concerns. No recent infections. Initial evaluation by Dr. Small: 37-year-old white male with his to discussbone marrow biopsy results. He had what looks like a minor MGUS in the urine. Because of appropriate concern of amyloidosis we did bone marrow biopsy. We will also ordered a skeletal survey. Actually bone density was done instead Subjective/ROS - Narrative: CONSTITUTIONAL: No weight loss, fever, chills, weakness or fatigue. HEENT: Eyes: No visual loss, blurred vision, double vision or yellow sclerae. Ears, Nose, Throat: No hearing loss, epistaxis. SKIN: No rash or itching. CARDIOVASCULAR: No chest pain, chest pressure or chest discomfort. No palpitations or edema. RESPIRATORY: No shortness of breath, cough or hemoptysis. GASTROINTESTINAL: No dysphagia, nausea, vomiting or diarrhea. No abdominal pain,melena, hematochezia. GENITOURINARY: No dysuria, urinary frequency or urgency. NEUROLOGICAL: No headache, dizziness, syncope, numbness or tingling in the extremities. MUSCULOSKELETAL: No muscle, back pain, joint pain or stiffness. HEMATOLOGIC: No bleeding or bruising. LYMPHATICS: No enlarged nodes. PSYCHIATRIC: No history of depression or anxiety. ENDOCRINOLOGIC: No reports of sweating, cold or heat intolerance. No polyuria orpolydipsia. ALLERGIES: No history of asthma, hives, eczema or rhinitis. [facility] - Medical History Medical History: Medical History (Last Updated 09/10/22 @ 16:40 by Christi Lucas RN) Anemia Anxiety Asthmatic bronchitis , chronic CHF (congestive heart failure) COVID history of Diabetes type 1 Diabetic retinopathy GERD (gastroesophageal reflux disease) not being treated currently History of blood transfusion 2020 History of myocardial infarction 2021 History of placement of stent in LAD coronary artery 2021 Hypercholesterolemia Hypertension Kidney failure MGUS (monoclonal gammopathy of unknown significance) PTSD (post-traumatic stress disorder) Smoker Triple vessel disease of the heart - Surgical History Surgical History: Surgical History (Last Updated 09/10/22 @ 16:32 by Christi Lucas RN) H/O eye surgery left repair retina Hx of knee surgery scope at age 17 Hx of vasectomy 7yrs ago - Family History Family History: Family History (Last Updated 09/10/22 @ 16:41 by Christi Lucas RN) Mother Diabetes Liver disease Father Stroke HTN (hypertension) IBS (irritable bowel syndrome) - Social History Smoking Status: Heavy tobacco smoker Tobacco Type: cigarettes Substance Use Type: None Home Medications & Allergies Allergies No Known Allergies Allergy (Verified 09/10/22 16:45) Home Medications insulin glargine 100 unit/mL (3 mL) subcutaneous pen (Basaglar KwikPen U-100 Insulin) 12 unit subcut QAM 09/11/21 [History Confirmed 09/10/22] carvedilol 12.5 mg tablet 12.5 mg PO BID 11/13/21 [History Confirmed 09/10/22] escitalopram oxalate 10 mg tablet 10 mg PO QHS 11/13/21 [History Confirmed 09/10/22] famotidine 20 mg tablet 40 mg PO QHS 11/13/21 [History Confirmed 09/10/22] atorvastatin 80 mg tablet 80 mg PO QPM 30 days #30 tabs 11/17/21 [Rx Confirmed 09/10/22] nitroglycerin 0.4 mg sublingual tablet 0.4 mg sublingual Q5MIN.X3 PRN Chest Pain30 days #25 tabs 11/17/21 [Rx Confirmed 09/10/22] hydralazine 25 mg tablet 50 mg PO TID 30 days #180 tabs 11/18/21 [Rx Confirmed 09/10/22] epoetin alexus-epbx 20,000 unit/mL injection solution (Retacrit) 20,000 unit subcut QMONTH 04/09/22 [History Confirmed 09/10/22] ergocalciferol (vitamin D2) 1,250 mcg (50,000 unit) capsule 1,250 mcg PO QWEEK 04/09/22 [History Confirmed 09/10/22] omeprazole 40 mg capsule,delayed release 40 mg PO QAM 05/09/22 [History Confirmed 09/10/22] insulin lispro 100 unit/mL subcutaneous solution (Humalog U-100 Insulin) 1 sliding scale dose subcut USEASDIRECTD 05/29/22 [History Confirmed 09/10/22] isosorbide mononitrate 30 mg tablet,extended release 24 hr 30 mg PO QHS 07/09/22[History Confirmed 09/10/22] aspirin 81 mg chewable tablet (Children's Aspirin) 81 mg PO QAM 09/10/22 [History Confirmed 09/10/22] clopidogrel 75 mg tablet (Plavix) 75 mg PO QAM 09/10/22 [History Confirmed 09/10/22] furosemide 40 mg tablet 40 mg PO QAM 09/10/22 [History Confirmed 09/10/22] Objective - Resuscitation Status Resuscitation Status: Full Code - Height/Weight Height/Weight: Height 6 ft Weight 76.9 kg - Vital Signs Vital Signs: 09/10/22 14:28 Temperature 97.8 F Pulse Rate [Right Brachial] 74 Respiratory Rate 16 Blood Pressure [Right Arm] 161/76 H 02 Sat by Pulse Oximetry 99 Oxygen Delivery Method Room Air Physical Exam Narrative: GENERAL APPEARANCE: Well developed, well nourished, in no acute distress. SKIN: Inspection of the skin reveals no rashes, ulcerations or petechiae. HEENT: The sclerae were anicteric and conjunctivae were pink and moist. EOMI, PERRLA. The oral mucosa is moist and clear. NECK: Supple and symmetric. There was no thyroid enlargement, and no tenderness,or masses were felt. CHEST: Normal contour without any kyphoscoliosis. LUNGS: Normal breath sounds on auscultation without rales, rhonchi, or crackles. CARDIOVASCULAR: S1 and S2, regular rate and rhythm, no murmurs, gallops, rubs. ABDOMEN: Soft, nontender, bowel sounds normal. No hepatosplenomegaly. No mass palpated. LYMPH NODES: No lymphadenopathy was appreciated in the neck, axillae or groin. MUSCULOSKELETAL: Gait was normal. There was no tenderness or effusions noted. Muscle strength and tone were normal. EXTREMITIES: No cyanosis, clubbing or edema. NEUROLOGIC: Alert and oriented x 3. Normal affect. Gait was normal. Sensation totouch was normal. - ECOG Performance Status ECOG Score: 0 Results - Labs Labs: Diagram of Most Recent CBC and CMP 09/01/22 09:03 Labs - Last 7 Days 09/01/22 09:03: IgG 1043, IgA 314, IgM 189 H, Serum Immunofixation Comment:, Free [place] LC, Quant 128.0 H, Free Lambda LC, Quant 77.5 H, Free [place]/Lambda Ratio 1.65 Assessment and Plan (1) MGUS (monoclonal gammopathy of unknown significance) On 05/29/2022 Dr. Small Discussed the results of bone marrow biopsy with patientand . No evidence of any plasma cell dyscrasia or lymphoproliferative disorder. However Congo red stain was not done. I talked to the pathologist Dr. Cagle very kindly discussed the case and stated that she will ask the pathologist who had there is bone marrow to add the Congo red on the core and the aspirate. It is expected to be negative given the description but it should be done as completeness. Once I have the results I will call the patient and . asked me about the lymphoid follicle described. It sounds very nonspecific and reactive with no concern about any lymphoproliferative disorder. She also asked me about kidney biopsy. I told her based on the literature and our own extensive experience and expertise that has slightly increased yield in the kidney biopsy. However; I would recheck this MGUS in 3 months and quantitate it which was not done this time. If stable to better I would just observe. Otherwise if it shows progression or even if there is earlier worsening related to the kidney function would consider a kidney biopsy. She also asked me about smoldering myeloma and I told her definitely this is not the case after explaining to her the definition of this entity Although skeletal survey was the one ordered but a normal bone density is even a good imaging study to support the negativity and benign nature so far of his MGUS 09/10/2022 Yoel is here for interval 3 month follow up with repeat labs. His kappa/lambda light chains remain elevated - but overall stable. K:L ratio is 1.65. SPEP with no evidence of M-spike. Serum immunofixation consistently reads as undetermined presence of monoclonal protein with no previous history of M-spike. His IGM is elevated at 189; this has actually improved since last visit. Renal function is poor but stable; but patient reports he will be having AV fistula access placed next week in anticipation of kidney dialysis in the future. patient is also stressed out and tired because he is going through a divorce. Denies any new bone pain or other concerns. No recent infections. - no hypercalcemia - no changes in anemia - no weight loss Will continue following with same labs, assess symptoms, return to clinic in 6 months. (2) Stage 3b chronic kidney disease (CKD) - Time with Patient Time Spent with Patient (Follow Up Visit): 25 minutes Coordination of Care & Counseling Time: Greater than 50% of time spent with patient was for coordination of care (as documented) and [id number] counseling of patient and/or family. Dictated By: Haydee Lira APRN DD/ 06 Signed By: <Electronically signed by JOSH Lira> 09/12/22 1538 [facility] Work Phone: 1(756) 314-665501-18-2023 Evaluation note* Encounter Date Diagnosis Assessment Notes Treatment Notes Treatment Clinical Notes Aug, Chronic kidney disease, stage IV (severe) (ICD-10 - N18.4) I had a lengthy discussion with this patient today about his CKD stage IV and AV fistula creation. I did give him an AV fistula handout and we reviewed each page individually. I am recommending a left upper extremity AV fistula using the cephalic vein in the forearm. This is currently Deo AV fistula. The risks and benefits were explained as well as medical surgical tenderness. We also discussed potential complications as well as the risk and management. Patient understands wished to proceed all questions were addressed we will schedule this in near future. Shortlist Other 01-12-2023 Evaluation note* Encounter Date Diagnosis Assessment Notes Treatment Notes Treatment Clinical Notes Aug, Proteinuria (ICD-10 - R80.9) He has a proteinuria likely nephrotic range with the diabetic nephropathy. He had an mild elevated serum free light chain ratio likely due to the CKD. He has a monoclonal protein and was seen by hematology. He had a bone marrow biopsy Showed no Evidence of Myeloma or Amyloidosis. He has normal complement C3 and C4, MARYAM and ANCA serologies. Aug, CKD (chronic kidney disease) stage 4, GFR 15-29 ml/min (ICD-10 - N18.4) He has a CKD due to the DM and HTN. His serum creatinine 3.5 mg/dL. His renal function has declined either due to the progression of his CKD in the setting of uncontrolled DM or maybe hemodynamic changes. I discussed with the importance of good DM and HTN control instructed on the progression of CKD. I explained to potential need of WOOD PL[employer]ER in near future. I discussed with him different option of WOOD PLANER including PD, transplant, HD. He attended the kidney smart classes. He is interested in HD so I have referred him to Vascular surgery. 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 Advised him fluid restriction.Continue 40 mg daily. Continue current diabetes medication including losartan and carvedilol. I have advised him to monitor his blood pressure at home and call office if stays above 140/90 mmHg. If Bp stays high then will aid amlodipine. Aug, Anemia of renal dise ase (ICD-10 - D63.1) Hemoglobin is 10 g/dL and has adequate iron stores. We will continue Retacrit to keep hemoglobin 10 to 11 g/dL. Aug, Secondary hyperparathyroidism (ICD-10 - N25.81) He has a secondary hyperparathyroidism due to the vitamin D deficiency.and CKD. Continue oral ergocalciferol. Aug, Diabetes mellitus wi th chronic kidney disease (ICD-10 - E11.22) He has insulin-dependent type 2 diabetes mellitus. Continue to log PCP for DM management. Continue losartan for renal protection. Shortlist Other 01-11-2023 Hospital Discharge instructions Patient Education 08/29/2022 07:47:24 Erectile Dysfunction Erectile Dysfunction Erectile dysfunction (ED) is the inability to get or keep an erection in order to have sexual intercourse. Erectile dysfunction may include: Inability to get an erection. Lack of enough hardness of the erection to allow penetration. Loss of the erection before sex is finished. What are the causes? This condition may be caused by: Certain medicines, such as: ?Pain relievers. ?Antihistamines. ?Antidepressants. ?Blood pressure medicines. ?Water pills (diuretics). ?Ulcer medicines. ?Muscle relaxants. ?Drugs. Excessive drinking. Psychological causes, such as: ?Anxiety. ?Depression. ?Sadness. ?Exhaustion. ?Performance fear. ?Stress. Physical causes, such as: ?Artery problems. This may include diabetes, smoking, liver disease, or atherosclerosis. ?High blood pressure. ?Hormonal problems, such as low testosterone. ?Obesity. ?Nerve problems. This may include back or pelvic injuries, diabetes mellitus, multiple sclerosis, or Parkinson disease. What are the signs or symptoms? Symptoms of this condition include: Inability to get an erection. Lack of enough hardness of the erection to allow penetration. Loss of the erection before sex is finished. Normal erections at some times, but with frequent unsatisfactory episodes. Low sexual satisfaction in either partner due to erection problems. A curved penis occurring with erection. The curve may cause pain or the penis may be too curved to allow for intercourse. Never having nighttime erections. How is this diagnosed? This condition is often diagnosed by: Performing a physical exam to find other diseases or specific problems with the penis. Asking you detailed questions about the problem. Performing blood tests to check for diabetes mellitus or to measure hormone levels. Performing other tests to check for underlying health conditions. Performing an ultrasound exam to check for scarring. Performing a test to check blood flow to the penis. Doing a sleep study at home to measure nighttime erections. How is this treated? This condition may be treated by: Medicine taken by mouth to help you achieve an erection (oral medicine). Hormone replacement therapy to replace low testosterone levels. Medicine that is injected into the penis. Your health care provider may instruct you how to give yourself these injections at home. Vacuum pump. This is a pump with a ring on it. The pump and ring are placed on the penis and used to create pressure that helps the penis become erect. Penile implant surgery. In this procedure, you may receive: ?An inflatable implant. This consists of cylinders, a pump, and a reservoir. The cylinders can be inflated with a fluid that helps to create an erection, and they can be deflated after intercourse. ?A semi-rigid implant. This consists of two silicone rubber rods. The rods provide some rigidity. They are also flexible, so the penis can both curve downward in its normal position and become straight for sexual intercourse. Blood vessel surgery, to improve blood flow to the penis. During this procedure, a blood vessel from a different part of the body is placed into the penis to allow blood to flow around (bypass) damaged or blocked blood vessels. Lifestyle changes, such as exercising more, losing weight, and quitting smoking. Follow these instructions at home: Medicines Take ctlk-xak-doolflh and prescription medicines only as told by your health care provider. Do not increase the dosage without first discussing it with your health care provider. If you are using self-injections, perform injections as directed by your health care provider. Makesure to avoid any veins that are on the surface of the penis. After giving an injection, apply pressure to the injection site for 5 minutes. General instructions Exercise regularly, as directed by your health care provider. Work with your health care provider to lose weight, if needed. Do not use any products that contain nicotine or tobacco, such as cigarettes and e-cigarettes. If you need help quitting, ask your health care provider. Before using a vacuum pump, read the instructions that come with the pump and discuss any questionswith your health care provider. Keep all follow-up visits as told by your health care provider. This is important. Contact a health care provider if: You feel nauseous. You vomit. Get help right away if: You are taking oral or injectable medicines and you have an erection that lasts longer than 4 hours. If your health care provider is unavailable, go to the nearest emergency room for evaluation. An erection that lasts much longer than 4 hours can result in permanent damage to your penis. You have severe pain in your groin or abdomen. You develop redness or severe swelling of your penis. You have redness spreading up into your groin or lower abdomen. You are unable to urinate. You experience chest pain or a rapid heart beat (palpitations) after taking oral medicines. Summary Erectile dysfunction (ED) is the inability to get or keep an erection during sexual intercourse. This problem can usually be treated successfully. This condition is diagnosed based on a physical exam, your symptoms, and tests to determine the cause. Treatment varies depending on the cause, and may include medicines, hormone therapy, surgery, orvacuum pump. You may need follow-up visits to make sure that you are using your medicines or devices correctly. Get help right away if you are taking or injecting medicines and you have an erection that lasts longer than 4 hours. This information is not intended to replace advice given to you by your health care provider. Make sure you discuss any questions you have with your health care provider. Document Released: 08/02/2001 Document Revised: 07/18/2018 Document Reviewed: 08/21/2017 [employer] Patient Education 2020 [employer] ([employer]). Follow Up Care 07/16/2022 11:13:53 With:TRUONG MOLINA, Mickey Tovar, URL Address: [facility] [address] , [place] [id number]- When: Unknown [facility] 12-26-2022 Consult note Author Nancy Haas [facility] August 13, 2022 1:06pm Note Date/Time August 13, 2022 1:01pm [facility] [address] [place], [place] [id number] Nephrology Consult Note Signed Patient: Yoel Werner MR#: [id number] : 1985 Acct:[id number] Age/Sex: 37 / M Adm Date: 2 Loc: Room: [address] [place] [address] Type: ADM INOo Attending Dr: Law Cano MD Copies to: MD Rolando Tao DO Marwan Wassouf, MD~ Providers Consult Date: 08/13/22 Requesting Provider: Law Cano MD Primary Care Provider: Rolando Olivares DO HPI Reason for Consult: Acute kidney injury on chronic kidney disease History of Present Illness: This is a 37-year-old male patient with past medical history of insulin- dependent diabetes mellitus, hypertension, hyperlipidemia, chronic kidney disease stage IV with baseline creatinine around 3.2 to 3.4 mg deciliter, history of non-ST AL status post stent placement. Patient brought in to the hospital for sudden onset of chest pain and syncope while he was urinating at home. Patient was a little drowsy when he arrived but this resolved. Patient stated his chest pain is similar to when he had acute AL. Patient also reportedsome shortness of breath. Blood pressure was elevated at admission. Vital signs has been stable. Patient has been on Lasix 40 mg p.o. daily at home whichwas increased to 80 mg twice daily while inpatient for concern of CHF. Troponincame back slightly positive. Last blood pressure readings was 107/67. Patient feels better but he still have some chest pain located over the left side of hischest. He has no legs edema Reviewed the patient medication. Currently on isosorbide mononitrate 30 mg p.o.daily, hydralazine 50 mg 3 times daily Coreg 12 mg twice daily. He also has been on Epogen for anemia 20,000 q. monthly. Patient also on Plavix and aspirin Serum creatinine at admission was 3.8 mg deciliter so renal team was consulted for PINO on CKD. Patient continues to produce urine. Denied any chest pain. Nolegs edema. No NSAID use. No IV contra exposure. Denies urinary obstructive symptoms PMFSH Vaccinated for COVID-19?: No Medical History (Updated 08/13/22 @ 13:01 by Nancy Haas MD) Anemia CHF (congestive heart failure) COVID Diabetes Diabetic retinopathy History of blood transfusion History of myocardial infarction History of placement of stent in LAD coronary artery Hypercholesterolemia Hypertension Kidney failure Surgical History H/O eye surgery left to repair retina Hx of knee surgery Hx of vasectomy Family History Other Diabetes Stroke Social History Smoking Status: Heavy tobacco smoker Tobacco Type: cigarettes Substance Use Type: None Meds Medications & Allergies Allergies No Known Allergies Allergy (Verified 08/12/22 23:11) Home Medications insulin glargine 100 unit/mL (3 mL) subcutaneous pen (Basaglar KwikPen U-100 Insulin) 12 unit subcut DAILY 09/11/21 [History Confirmed 08/12/22] carvedilol 12.5 mg tablet 12.5 mg PO BID 11/13/21 [History Confirmed 08/12/22] escitalopram oxalate 10 mg tablet 10 mg PO DAILY 11/13/21 [History Confirmed 08/12/22] famotidine 20 mg tablet 20 mg PO BID 11/13/21 [History Confirmed 08/12/22] aspirin 81 mg chewable tablet (Children's Aspirin) 81 mg PO DAILY #0 tabs 11/17/21 [Rx Confirmed 08/12/22] atorvastatin 80 mg tablet 80 mg PO QPM 30 days #30 tabs 11/17/21 [Rx Confirmed 08/12/22] clopidogrel 75 mg tablet (Plavix) 75 mg PO DAILY 30 days #30 tabs 11/17/21 [Rx Confirmed 08/12/22] furosemide 40 mg tablet 40 mg PO DAILY.8A 30 days #30 tabs 11/17/21 [Rx Confirmed 08/12/22] nitroglycerin 0.4 mg sublingual tablet 0.4 mg sublingual Q5MIN.X3 PRN Chest Pain30 days #25 tabs 11/17/21 [Rx Confirmed 08/12/22] hydralazine 25 mg tablet 50 mg PO TID 30 days #180 tabs 11/18/21 [Rx Confirmed 08/12/22] epoetin alexus-epbx 20,000 unit/mL injection solution (Retacrit) 20,000 unit subcut QMONTH 04/09/22 [History Confirmed 08/12/22] ergocalciferol (vitamin D2) 1,250 mcg (50,000 unit) capsule 1,250 mcg PO QWEEK 04/09/22 [History Confirmed 08/12/22] omeprazole 40 mg capsule,delayed release 40 mg PO DAILY 05/09/22 [History Confirmed 08/12/22] insulin lispro 100 unit/mL subcutaneous solution (Humalog U-100 Insulin) 1 sliding scale dose subcut USEASDIRECTD 05/29/22 [History Confirmed 08/12/22] isosorbide mononitrate 30 mg tablet,extended release 24 hr 30 mg PO DAILY 07/09/22 [History Confirmed 08/12/22] Active Medications: Active Medications Acetaminophen (Acetaminophen 325 Mg Tablet) 650 mg PO Q6HR PRN PRN Reason: Pain Scale 1 - 3 or fever Stop: 08/13/23 04:46 Aspirin (Aspirin 81 Mg Tab.Chew) 81 mg PO DAILY RACHELL Stop: 08/13/23 08:59 Last Admin: 08/13/22 08:22 Dose: 81 mg Atorvastatin Calcium (Atorvastatin 80 Mg Tablet) 80 mg PO QPM RACHELL Stop: 08/13/23 20:59 Carvedilol (Carvedilol 12.5 Mg Tablet) 12.5 mg PO BID RACHELL Stop: 08/13/23 08:59 Last Admin: 08/13/22 08:22 Dose: 12.5 mg Clopidogrel Bisulfate (Clopidogrel Bisulfate 75 Mg Tablet) 75 mg PO DAILY RACHELL Stop: 08/13/23 08:59 Last Admin: 08/13/22 08:22 Dose: 75 mg Dextrose (Dextrose 20 % In Water 10 Gm/50 Ml Syringe) 10 - 20 gm IV-PUSH PRN PRN PRN Reason: Hypoglycemia Stop: 08/13/23 07:12 Ergocalciferol (Ergocalciferol 1,250 Mcg (50,000 Units) Capsule) 1,250 mcg PO QWEEK RACHELL Stop: 08/13/23 08:59 Last Admin: 08/13/22 08:22 Dose: 1,250 mcg Escitalopram Oxalate (Escitalopram 10 Mg Tablet) 10 mg PO DAILY RACHELL Stop: 08/13/23 08:59 Last Admin: 08/13/22 08:22 Dose: 10 mg Famotidine (Famotidine 20 Mg Tablet) 20 mg PO BID RACHELL Stop: 08/13/23 08:59 Last Admin: 08/13/22 08:22 Dose: 20 mg Furosemide (Furosemide 100 Mg/10 Ml Vial) 80 mg IV-PUSH BID@0800,1600 RACHELL Stop: 08/13/23 07:59 Last Admin: 08/13/22 08:22 Dose: 80 mg Glucose (Dextrose 40% Gel 15 Gm Tube) 0 gm PO PRN PRN PRN Reason: Hypoglycemia Stop: 08/13/23 07:10 Heparin Sodium (Porcine) (Heparin 5,000 Unit/Ml Vial) 5,000 unit SUBCUT Q8HR RACHELL Stop: 08/13/23 05:59 Last Admin: 08/13/22 06:32 Dose: 5,000 unit Hydralazine HCl (Hydralazine 20 Mg/Ml Vial) 10 mg IV-PUSH Q4H PRN PRN Reason: Hypertension Stop: 08/13/23 04:46 Hydralazine HCl (Hydralazine 50 Mg Tablet) 50 mg PO TID RACHELL Stop: 08/13/23 08:59 Last Admin: 08/13/22 08:22 Dose: 50 mg Magnesium Sulfate (Magnesium Sulf 2gm-*Swfi*) 2 gm in 50 mls @ 25 mls/hr IV DAILY PRN PRN Reason: Magnesium Level < 1.5 Stop: 08/13/23 04:46 Insulin Aspart (Insulin Aspart 300 Units/3 Ml Insuln.Pen) 0 units SUBCUT TID.WM.HS [facility]; Protocol Stop: 08/13/23 07:59 Last Admin: 08/13/22 11:13 Dose: 3 units Insulin Glargine (Insulin Glargine 300 Units/3 Ml Insuln.Pen) 12 units SUBCUT DAILY [facility] Stop: 08/13/23 08:59 Last Admin: 08/13/22 09:07 Dose: 12 units Isosorbide Mononitrate (Isosorbide Mononitrate 24hr Er 30 Mg Tab.Er.24h) 30 mg PO DAILY [facility] Stop: 08/13/23 08:59 Last Admin: 08/13/22 08:22 Dose: 30 mg Nitroglycerin (Nitroglycerin 0.4 Mg Tab.Subl) 0.4 mg SUBLINGUAL Q5MIN.X3 PRN PRN Reason: Chest Pain Stop: 08/13/23 04:50 Non-Formulary Medication (Epoetin Alexus-Epbx [Retacrit]) 20,000 unit SUBCUT QMONTH [facility] Stop: 08/13/23 04:59 Omeprazole (Omeprazole 20 Mg Capsule.Dr) 40 mg PO DAILY [facility] Stop: 08/13/23 08:59 Last Admin: 08/13/22 08:22 Dose: 40 mg Potassium Chloride (Potassium Chloride Er 20 Meq Tab.Er.Prt) 20 meq PO DAILY PRN PRN Reason: Hypokalemia Stop: 08/13/23 04:46 Potassium Chloride (Potassium Chloride Er 20 Meq Tab.Er.Prt) 40 meq PO DAILY PRN PRN Reason: Hypokalemia Stop: 08/13/23 04:46 Exam Physical Exam Vital Signs: Temp Pulse Resp BP Pulse Ox O2 Del Method 97.4 F L 68 16 107/67 97 Room Air 08/13/22 08:00 08/13/22 11:19 08/13/22 11:19 08/13/22 11:19 08/13/22 11:19 08/13/22 11:19 Narrative: General: No acute distress Head :atraumatic normocephalic Eyes: PERRLA. Neck: no JVD no bruit. Heart: S1-S2. RRR Respiratory: Clear to auscultation. No wheezing. No crackles Abdomen: Soft, positive bowel sounds,no tenderness. Neurology: Awake alert oriented x3. No focal deficits Extremity. No cyanosis. No edema Skin: No skin rash Results Labs CBC & Chem 7: 08/12/22 23:58 12 23:58 Labs: 08/12/22 08/13/22 23:58 00:49 BUN 45 H Creatinine 3.85 H Albumin 2.4 L Urine Color Yellow Urine Appearance Clear Urine pH 5.5 Ur Specific [place] 1.011 Urine Protein 300 H Urine Glucose (UA) 250 H Urine Ketones Negative Urine Occult Blood 1+ H Urine Nitrite Negative Ur Leukocyte Esterase Negative Urine RBC 10-19 H Urine WBC 1-2 Urine Bacteria None seen Radiology Impressions Impressions - last 24 hours: Impressions Head CT 08/12/22 23:07 IMPRESSION: No acute intracranial findings. Impression dictated by: Alec Flynn M.D.08/13/2022 11:25 AM Dictation Location: [place] [address] Chest X-Ray 08/13/22 04:55 IMPRESSION: No acute process. Impression dictated by: Alec Flynn M.D.08/13/2022 8:22 AM Dictation Location: [place] [address] Any impression(s) listed above is documentation that was entered by the reading physician into a diagnostic report(s) for Yoel Werner. I have reviewed the report(s) and am incorporating any findings in the treatment plan of this patient where applicable. A&P - Nephrology Assessment/Plan (1) Acute kidney injury: Assessment/Problem Details: Acute kidney injury is likely from hemodynamic instability associated with syncope. Serum creatinine 3.8 g deciliter. I doubt the patient has obstructive nephropathy or glomerulonephritis. UA showed 300 mg deciliter protein with RBCs 10-19. 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 Baseline creatinine this year around 3.4 mg deciliter (3) Uncontrolled hypertension: Assessment/Problem Details: Patient presented with systolic blood pressure more than 200. Blood pressure has improved. Currently on home blood pressure medications which include isosorbide mononitrate, hydralazine, and Coreg. (4) Anemia: Assessment/Problem Details: Patient has been receiving EPO as outpatient for renal disease with anemia. He received Epogen 20,000 unit monthly. Hemoglobin is 8.3 g deciliter which below target (5) Chest pain: Assessment/Problem Details: Patient presented with chest pain and some shortness of breath. I doubt the patient has ACS. Symptoms likely related to hypertension. Symptoms has improved with better control of blood pressure Plan - Serum creatinine is close to baseline. Patient nonoliguric. At risk for worsening kidney function due to blood pressure fluctuating. -There is no need for renal placement therapy. -I will switch Lasix back to oral home dose. I doubt the patient has CHF. Patient has no peripheral edema chest x-ray is clear -Continue current blood pressure medications. Might increase hydralazine to 75 mg 3 times daily if blood pressure increases again. Avoid KULDEEP or ARB due to advanced CKD and worsening kidney function. -Chest pain work-up as directed by the primary service. -Check renal function panel in the morning. Continue accurate in and out Thank you for the consult. Renal team will continue to follow. Call if any question or concern. Documented By: Nancy Haas MD 08/13/22 1255 Signed By: <Electronically signed by Nancy Haas MD> 08/13/22 1302 [facility] Work Phone: 1(325) 302-116612-26-2022 History and physical note Author Isidoro Mesa [facility] August 13, 2022 4:55am Note Date/Time August 13, 2022 4:18am [facility] [address] [place] [address] Hospitalist H&P Signed Patient: Yoel Werner MR#: [id number] : 1985 Acct:[id number] Age/Sex: 37 / M Adm Date: 2 Loc: Room: [address] [place] [address] Type: ADM INOo Attending Dr: Isidoro Mesa DO Copies to: DO Isidoro Leblanc, DO~ HPI DATE OF EXAMINATION: 08/13/22 CHIEF COMPLAINT: syncope HISTORY OF PRESENT ILLNESS: Mr Werner is a 37-year-old male with past medical history of insulin- dependent diabetes, hypertension, hyperlipidemia, CKD, tobacco use, NSTEMI status post stenting to the proximal to mid LAD in November presents to hospital today with chief complaint of chest pain and syncope at home. Most of the history will be taken from the chart, upon arrival to the floor in my assessment, the patient was quite drowsy and was very short of answers if even acknowledged the question at all. Per the ED report, the patient was using the restroom and had chest pain when he stood up he states he passed out. He does believe he hit his head, however upon my assessment in the room he denies any head pain. He does not answer if he had any visual changes prior to passing out. He does not answer if this chest pain is similar to chest pain he had withhis previous event in November. The patient has denied any subsequent chest pain since passing out. Review of Systems Review of Systems Other (Unable to do review of systems, patient essentially refuses to answer questions or is very short with his response.) PMFSH Vaccinated for COVID-19?: No Medical History (Updated 08/13/22 @ 04:42 by Isidoro Mesa DO) Anemia CHF (congestive heart failure) COVID Diabetes Diabetic retinopathy History of blood transfusion History of myocardial infarction History of placement of stent in LAD coronary artery Hypercholesterolemia Hypertension Kidney failure Surgical History H/O eye surgery left to repair retina Hx of knee surgery Hx of vasectomy Family History Other Diabetes Stroke Social History Smoking Status: Heavy tobacco smoker Tobacco Type: cigarettes Substance Use Type: None Meds Medications and Allergies Allergies No Known Allergies Allergy (Verified 08/12/22 23:11) Home Medications insulin glargine 100 unit/mL (3 mL) subcutaneous pen (Basaglar KwikPen U-100 Insulin) 12 unit subcut DAILY 09/11/21 [History Confirmed 08/12/22] carvedilol 12.5 mg tablet 12.5 mg PO BID 11/13/21 [History Confirmed 08/12/22] escitalopram oxalate 10 mg tablet 10 mg PO DAILY 11/13/21 [History Confirmed 08/12/22] famotidine 20 mg tablet 20 mg PO BID 11/13/21 [History Confirmed 08/12/22] aspirin 81 mg chewable tablet (Children's Aspirin) 81 mg PO DAILY #0 tabs 11/17/21 [Rx Confirmed 08/12/22] atorvastatin 80 mg tablet 80 mg PO QPM 30 days #30 tabs 11/17/21 [Rx Confirmed 08/12/22] clopidogrel 75 mg tablet (Plavix) 75 mg PO DAILY 30 days #30 tabs 11/17/21 [Rx Confirmed 08/12/22] furosemide 40 mg tablet 40 mg PO DAILY.8A 30 days #30 tabs 11/17/21 [Rx Confirmed 08/12/22] nitroglycerin 0.4 mg sublingual tablet 0.4 mg sublingual Q5MIN.X3 PRN Chest Pain30 days #25 tabs 11/17/21 [Rx Confirmed 08/12/22] hydralazine 25 mg tablet 50 mg PO TID 30 days #180 tabs 11/18/21 [Rx Confirmed 08/12/22] epoetin alexus-epbx 20,000 unit/mL injection solution (Retacrit) 20,000 unit subcut QMONTH 04/09/22 [History Confirmed 08/12/22] ergocalciferol (vitamin D2) 1,250 mcg (50,000 unit) capsule 1,250 mcg PO QWEEK 04/09/22 [History Confirmed 08/12/22] omeprazole 40 mg capsule,delayed release 40 mg PO DAILY 05/09/22 [History Confirmed 08/12/22] insulin lispro 100 unit/mL subcutaneous solution (Humalog U-100 Insulin) 1 sliding scale dose subcut USEASDIRECTD 05/29/22 [History Confirmed 08/12/22] isosorbide mononitrate 30 mg tablet,extended release 24 hr 30 mg PO DAILY 07/09/22 [History Confirmed 08/12/22] Exam Physical Exam Vital Signs: Temp Pulse Resp BP Pulse Ox O2 Del Method 98.4 F 67 14 205/103 H 98 Room Air 08/13/22 02:20 08/13/22 03:30 08/13/22 03:30 08/13/22 03:30 08/13/22 03:30 08/13/22 03:30 Narrative: General: Patient is somnolent however easily arousable, appears noncooperative with HPI Neck: supple no masses, no lymphadenopathy CVS: regular rate and rhythm, no murmurs or gallops Respiratory: clear to auscultation bilaterally, no wheezing or crackles, symmetric expansion GI: soft, nondistended, nontender, positive bowel sounds with no organomegaly Extremity: moves all extremities, no restrictions of movements, no calf tenderness, +1 edema in lower extremities Neuro: AOx3, CN II-VII intact. Moves all extremities in all planes of motion. Skin: dry, intact no rashes or lesions Results Lab Results Labs: Laboratory Last Values Corrected WBC 5.4 X10E3/uL (4.1-10.5) 08/12/22 23:58 Uncorrected WBC Count 5.4 x10E3/uL (4.1-10.5) 08/12/22 23:58 RBC 2.74 X10E6/uL (3.90-5.60) L 08/12/22 23:58 Hgb 8.3 g/dL (13.0-17.0) L 08/12/22 23:58 Hct 23.4 % (38.8-50.0) L 08/12/22 23:58 MCV 85.1 fl (83.5-101) 08/12/22 23:58 MCH 30.1 pg (27.5-35.2) 08/12/22 23:58 MCHC 35.4 g/dL (32.5-35.6) 08/12/22 23:58 RDW 13.6 % (12.0-14.8) 08/12/22 23:58 Plt Count 148 x10E3/uL (150-450) L 08/12/22 23:58 MPV 7.9 fl (6.6-10.1) 08/12/22 23:58 Neut % (Auto) 57.7 % (.) 08/12/22 23:58 Lymph % (Auto) 29.2 % (.) 08/12/22 23:58 [place] % (Auto) 8.9 % (.) 08/12/22 23:58 Eos % (Auto) 2.7 % (.) 08/12/22 23:58 Baso % (Auto) 1.5 % (.) 08/12/22 23:58 Nucleat RBC Rel Count 0.1 /100 WBC (0-0.5) 08/12/22 23:58 Neut # (Auto) 3.1 x10E3/uL (1.8-7.7) 08/12/22 23:58 Lymph # (Auto) 1.6 x10E3/uL (1.00-4.8) 08/12/22 23:58 [place] # (Auto) 0.5 x10E3/uL (0.0-0.8) 08/12/22 23:58 Eos # (Auto) 0.1 x10E3/uL (0.0-0.45) 08/12/22 23:58 Baso # (Auto) 0.1 x10E3/uL (0.0-0.2) 08/12/22 23:58 Monocyte Dist Width 17.67 % (0.00-20.00) 08/12/22 23:58 PT 12.0 Seconds (9.0-12.9) 08/12/22 23:58 INR 1.1 08/12/22 23:58 APTT 36.3 Seconds (25.1-36.5) 08/12/22 23:58 PHA Creatinine Clear 28.24 08/12/22 23:58 Sodium 136 mmol/L (136-146) 08/12/22 23:58 Potassium 4.2 mmol/L (3.5-5.1) 08/12/22 23:58 Chloride 107 mmol/L (95-114) 08/12/22 23:58 Carbon Dioxide 20.9 mmol/L (22.0-30.0) L 08/12/22 23:58 Anion Gap 12.3 mEq/L (6.0-15.0) 08/12/22 23:58 BUN 45 mg/dL (9-23) H 08/12/22 23:58 Creatinine 3.85 mg/dL (0.64-1.27) H 08/12/22 23:58 Est GFR ( Amer) 21 mL/Min 08/12/22 23:58 Est GFR (Non-Af Amer) 18 mL/Min 08/12/22 23:58 Glucose 198 mg/dL (70-100) H 08/12/22 23:58 Calcium 7.7 mg/dL (8.2-10.2) L 08/12/22 23:58 Total Bilirubin 0.4 mg/dL (0.3-1.2) 08/12/22 23:58 AST 12 U/L (10-42) 08/12/22 23:58 ALT 11 U/L (10-60) 08/12/22 23:58 Alkaline Phosphatase 68 U/L (32-92) 08/12/22 23:58 Total Creatine Kinase 236 U/L (22-269) 08/12/22 23:58 CK-MB (CK-2) 6.6 ng/mL (0.6-6.3) H 08/12/22 23:58 CK-MB (CK-2) Rel Index 2.7 % (0.00-2.50) H 08/12/22 23:58 Troponin I High Sens 24 pg/mL (0-20) H 08/12/22 23:58 Total Protein 5.2 gm/dL (6.1-7.9) L 08/12/22 23:58 Albumin 2.4 gm/dL (3.2-5.5) L 08/12/22 23:58 Globulin 2.8 gm/dL 08/12/22 23:58 Albumin/Globulin Ratio 0.9 08/12/22 23:58 Urine Color Yellow (Yellow) 08/13/22 00:49 Urine Appearance Clear (Clear) 08/13/22 00:49 Urine pH 5.5 (5.0-9.0) 08/13/22 00:49 Ur Specific [place] 1.011 (1.001-1.030) 08/13/22 00:49 Urine Protein 300 mg/dL (Negative) H 08/13/22 00:49 Urine Glucose (UA) 250 mg/dL (Normal) H 08/13/22 00:49 Urine Ketones Negative (Negative) 08/13/22 00:49 Urine Occult Blood 1+ (Negative) H 08/13/22 00:49 Urine Nitrite Negative (Negative) 08/13/22 00:49 Urine Bilirubin Negative (Negative) 08/13/22 00:49 Urine Urobilinogen Normal mg/dL (Normal) 08/13/22 00:49 Ur Leukocyte Esterase Negative (Negative) 08/13/22 00:49 Urine RBC 10-19 /HPF (0-4) H 08/13/22 00:49 Urine WBC 1-2 /HPF (0-4) 12/26/22 00:49 Ur Squamous Epith Cells 0-1 /HPF (0-2) 08/13/22 00:49 Urine Bacteria None seen (None Seen) 08/13/22 00:49 Hyaline Casts 0-8 /LPF (0-8) 08/13/22 00:49 A&P - Hospitalist Assessment/Plan (1) Syncope: Plan: ? Chest pain followed by syncope, could be due to some sort of arrhythmia ? BMP essentially normal, checking magnesium this morning ? Slight troponin elevation in the ED, will trend this this morning ?TTE from July 19 shows EF of 55 to 60%, RVSP of 30 and a moderate size left pleural effusion ?Chest x-ray ordered ? Telemetry placed while patient is admitted ? Holding home dose of Lasix 40 mg p.o. every morning, initiate Lasix 80 mg IV twice daily as his creatinine is 3.5 (2) PINO (acute kidney injury): Plan: ? Currently on volume overload ? IV Lasix as mentioned above ? Nephrology consulted (3) Acute congestive heart failure: Plan: See above (4) Chest pain: Plan: See above (5) CKD (chronic kidney disease): Plan: See above Documented By: Isidoro Mesa DO 08/13/22 0416 Signed By: <Electronically signed by Isidoro Mesa DO> 08/13/225 [facility] Work Phone: 1(110) 204-880012-15-2022 Miscellaneous Notes* Telephone Encounter - Sara Willis - 08/02/2022 10:39 AM EST Returned call to patient regarding kidney transplant, he is currently smoking cigarettes about 1/2 pack per day. Advised patient once he is nicotine free for 30-days to contact our office. Closing referral at this time and patient verbalized understanding. [facility]* Encounter Date Diagnosis Assessment Notes Treatment Notes Treatment Clinical Notes Jun, Proteinuria (ICD-10 - R80.9) He has a proteinuria likely nephrotic range with the diabetic nephropathy. He had an mild elevated serum free light chain ratio likely due to the CKD. He has a monoclonal protein and was seen by hematology. He had a bone marrow biopsy results are pending. He has normal complement C3 and C4, MARYAM and ANCA serologies. Jun, CKD (chronic kidney disease) stage 4, GFR 15-29 ml/min (ICD-10 - N18.4) He has a CKD due to the DM and HTN. His serum creatinine 3.2 mg/dL. His renal function has declined either due to the progression of his CKD in the setting of uncontrolled DM or maybe hemodynamic changes. I discussed with the importance of good DM and HTN control instructed on the progression of CKD. I explained to potential need of WOOD PLANER in near future. I discussed with him different option of WOOD PLANER including PD, transplant, HD. I referred him to the kidney smart classes. 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 Advised him fluid restriction.Continue 40 mg daily. Continue current diabetes medication including losartan and carvedilol. I have advised him to monitor his blood pressure at home and call office if stays above 140/90 mmHg. If Bp stays high then will aid amlodipine. Jun, Anemia of renal dise ase (ICD-10 - D63.1) Hemoglobin is 11. We will hold the Retacrit. Jun, Secondary hyperparathyroidism (ICD-10 - N25.81) He has a secondary hyperparathyroidism due to the vitamin D deficiency.and CKD. Continue oral ergocalciferol. Jun, Diabetes mellitus wi th chronic kidney disease (ICD-10 - E11.22) He has insulin-dependent type 2 diabetes mellitus. Continue to log PCP for DM management. Continue losartan for renal protection. Shortlist Other 10-11-2022 Progress note Author Jorje Small [facility] May 29, 2022 4:50pm Note Date/Time May 29, 2022 4 :42pm [facility] at [address] [address] Hem/Onc Follow Up Note - OP Signed Patient: Yoel Werner MR#: [id number] : 1985 Acct:[id number] Age/Sex: 37 / M Type: REG RCR Copies to: MD Rolando Castellano DO~ Subjective Date/Time of Service: Date of Service: 05/29/2022 Time of Service: 16:41 Chief Complaint: Patient is here today for a follow up visit for MGUS and go over bone marrow biopsy HPI: 37-year-old white male with his to discuss bone marrow biopsy results. He had what looks like a minor MGUS in the urine. Because of appropriate concern of amyloidosis we did bone marrow biopsy. We will also order a skeletal survey. Actually bone density was done instead Subjective/ROS - Narrative: CONSTITUTIONAL: No weight loss, fever, chills, weakness or fatigue. HEENT: Eyes: No visual loss, blurred vision, double vision or yellow sclerae. Ears, Nose, Throat: No hearing loss, epistaxis. SKIN: No rash or itching. CARDIOVASCULAR: No chest pain, chest pressure or chest discomfort. No palpitations or edema. RESPIRATORY: No shortness of breath, cough or hemoptysis. GASTROINTESTINAL: No dysphagia, nausea, vomiting or diarrhea. No abdominal pain,melena, hematochezia. GENITOURINARY: No dysuria, urinary frequency or urgency. NEUROLOGICAL: No headache, dizziness, syncope, numbness or tingling in the extremities. MUSCULOSKELETAL: No muscle, back pain, joint pain or stiffness. HEMATOLOGIC: No bleeding or bruising. LYMPHATICS: No enlarged nodes. PSYCHIATRIC: No history of depression or anxiety. ENDOCRINOLOGIC: No reports of sweating, cold or heat intolerance. No polyuria orpolydipsia. ALLERGIES: No history of asthma, hives, eczema or rhinitis. [facility] - Medical History Medical History: Medical History (Last Reviewed 05/21/22 @ 21:53 by Viktoria Barrios RN) COVID Diabetes Diabetic retinopathy History of myocardial infarction History of placement of stent in LAD coronary artery Hypercholesterolemia Hypertension Kidney failure - Surgical History Surgical History: Surgical History (Last Reviewed 05/21/22 @ 21:53 by Viktoria Barrios RN) H/O eye surgery left to repair retina Hx of knee surgery Hx of vasectomy - Family History Family History: Family History (Last Reviewed 05/09/22 @ 13:34 by Frances Hidalgo) Other Diabetes Stroke - Social History Smoking Status: Current every day smoker Tobacco Type: cigarettes Substance Use Type: None Home Medications & Allergies Allergies No Known Allergies Allergy (Verified 05/29/22 11:01) Home Medications insulin glargine 100 unit/mL (3 mL) subcutaneous pen (Basaglar KwikPen U-100 Insulin) 20 unit subcut DAILY 09/11/21 [History Confirmed 05/29/22] losartan 25 mg tablet 25 mg PO DAILY 09/11/21 [History Confirmed 05/29/22] carvedilol 12.5 mg tablet 12.5 mg PO BID 11/13/21 [History Confirmed 05/29/22] escitalopram oxalate 10 mg tablet 10 mg PO DAILY 11/13/21 [History Confirmed 05/29/22] famotidine 20 mg tablet 20 mg PO BID 11/13/21 [History Confirmed 05/29/22] aspirin 81 mg chewable tablet (Children's Aspirin) 81 mg PO DAILY #0 tabs 11/17/21 [Rx Confirmed 05/29/22] atorvastatin 80 mg tablet 80 mg PO QPM 30 days #30 tabs 11/17/21 [Rx Confirmed 05/29/22] clopidogrel 75 mg tablet (Plavix) 75 mg PO DAILY 30 days #30 tabs 11/17/21 [Rx Confirmed 05/29/22] furosemide 40 mg tablet 40 mg PO DAILY.8A 30 days #30 tabs 11/17/21 [Rx Confirmed 05/29/22] nitroglycerin 0.4 mg sublingual tablet 0.4 mg sublingual Q5MIN.X3 PRN Chest Pain30 days #25 tabs 11/17/21 [Rx Confirmed 05/29/22] hydralazine 25 mg tablet 50 mg PO TID 30 days #180 tabs 11/18/21 [Rx Confirmed 05/29/22] epoetin alexus-epbx 20,000 unit/mL injection solution (Retacrit) 20,000 unit subcut QMONTH 04/09/22 [History Confirmed 05/29/22] ergocalciferol (vitamin D2) 1,250 mcg (50,000 unit) capsule 1,250 mcg PO QWEEK 04/09/22 [History Confirmed 05/29/22] omeprazole 40 mg capsule,delayed release 40 mg PO DAILY 05/09/22 [History Confirmed 05/29/22] insulin lispro 100 unit/mL subcutaneous solution (Humalog U-100 Insulin) 1 sliding scale dose subcut USEASDIRECTD 05/29/22 [History Confirmed 05/29/22] Objective - Height/Weight Height/Weight: Height 6 ft Weight 79.379 kg - Vital Signs Vital Signs: 05/29/22 11:01 Temperature 97.5 F L Pulse Rate [Right Brachial] 80 Respiratory Rate 16 Blood Pressure [Right Arm] 118/75 02 Sat by Pulse Oximetry 98 Oxygen Delivery Method Room Air Physical Exam Narrative: GENERAL APPEARANCE: Well developed, well nourished, in no acute distress. SKIN: Inspection of the skin reveals no rashes, ulcerations or petechiae. HEENT: The sclerae were anicteric and conjunctivae were pink and moist. EOMI, PERRLA. The oral mucosa is moist and clear. NECK: Supple and symmetric. There was no thyroid enlargement, and no tenderness,or masses were felt. CHEST: Normal contour without any kyphoscoliosis. LUNGS: Normal breath sounds on auscultation without rales, rhonchi, or crackles. CARDIOVASCULAR: S1 and S2, regular rate and rhythm, no murmurs, gallops, rubs. ABDOMEN: Soft, nontender, bowel sounds normal. No hepatosplenomegaly. No mass palpated. LYMPH NODES: No lymphadenopathy was appreciated in the neck, axillae or groin. MUSCULOSKELETAL: Gait was normal. There was no tenderness or effusions noted. Muscle strength and tone were normal. EXTREMITIES: No cyanosis, clubbing or edema. NEUROLOGIC: Alert and oriented x 3. Normal affect. Gait was normal. Sensation totouch was normal. - ECOG Performance Status ECOG Score: 0 Assessment and Plan (1) MGUS (monoclonal gammopathy of unknown significance) Discussed the results of bone marrow biopsy with patient and . No evidence of any plasma cell dyscrasia or lymphoproliferative disorder. However Congo redstain was not done. I talked to the pathologist Dr. Giles who very kindly discussed the case and stated that she will ask the pathologist who had there isbone marrow to add the [place] red on the core and the aspirate. It is expected to be negative given the description but it should be done as completeness. Once I have the results I will call the patient and . asked me about the lymphoid follicle described. It sounds very nonspecific and reactive with no concern about any lymphoproliferative disorder. She also asked me about kidney biopsy. I told her based on the literature and our own extensive experience and expertise that has slightly increased yield in the kidney biopsy. However; I would recheck this MGUS in 3 months and quantitate it which was not done this time. If stable to better I would just observe. Otherwise if it shows progression or even if there is earlier worsening related to the kidney function would consider a kidney biopsy. She also asked me about smoldering myeloma and I told her definitely this is not the case after explaining to her the definition of this entity Although skeletal survey was the one ordered but a normal bone density is even a good imaging study to support the negativity and benign nature so far of his MGUS - Time with Patient Coordination of Care & Counseling Time: Greater than 50% of time spent with patient was for coordination of care (as documented) and [id number] counseling of patient and/or family. Dictated By: Jorje Small MD DD/ 1641 Signed By: <Electronically signed by Jorje Small MD> 05/29/22 1650 [facility] Work Phone: 1([phone]) 814-295510-05-2022 Evaluation note* Encounter Date Diagnosis Assessment Notes Treatment Notes Treatment Clinical Notes May, Proteinuria (ICD-10 - R80.9) He has a proteinuria likely nephrotic range with the diabetic nephropathy. He had an mild elevated serum free light chain ratio likely due to the CKD. He has a monoclonal protein and was seen by hematology. He had a bone marrow biopsy results are pending. He has normal complement C3 and C4, MARYAM and ANCA serologies. May, Chronic kidney disea se, stage III (moderate) (ICD-10 - N18.30) He has a CKD due to the DM and HTN. His serum creatinine 3.2 mg/dL. His renal function has declined either due to the progression of his CKD in the setting of uncontrolled DM or maybe hemodynamic changes. I discussed with the importance of good DM and HTN control instructed on the progression of CKD. I explained to potential need of WOOD PLANER in near future. I discussed with him different option of WOOD PLANER including PD, transplant, HD. I referred him to the kidney smart classes. 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 Advised him fluid restriction.Continue 40 mg daily. Continue current diabetes medication including losartan and carvedilol. I have advised him to monitor his blood pressure at home and call office if stays above 140/90 mmHg. If Bp stays high then will aid amlodipine. May, Anemia of renal dise ase (ICD-10 - D63.1) Hemoglobin is 11. We will hold the Retacrit. May, Secondary hyperparathyroidism (ICD-10 - N25.81) He has a secondary hyperparathyroidism due to the vitamin D deficiency.and CKD. Continue oral ergocalciferol. May, Diabetes mellitus wi th chronic kidney disease (ICD-10 - E11.22) He has insulin-dependent type 2 diabetes mellitus. Continue to log PCP for DM management. Continue losartan for renal protection. Shortlist Other 09-21-2022 Consult note Author Jorje Small [facility] May 09, 2022 3:02pm Note Date/Time May 09, 2022 2:53pm [facility] [place] [address] Hem/Onc Consult Note - OP Signed Patient: Yoel Werner MR#: [id number] : 1985 Acct:[id number] Age/Sex: 37 / M Type: REG RCR Copies to: MD Rolando Castellano DO~ HPI Date/Time of Service: Date of Service: 05/09/2022 Time of Service: 14:53 Referring Provider/PCP: Referring Provider: Angel Mejía MD PCP: Rolando Olivares DO - History of Present Illness Reason for Consultation: MGUS Chief Complaint: Patient is here for a referral from Dr Mejía for monocolonal protein. HPI: Patient is a 37-year-old white gentleman who is here with his for evaluation and management of an MGUS. He has longstanding chronic kidney disease secondary to his diabetes mellitus. He has had previous labs including protein electrophoresis, immunofixation in both serum and urine as well as free light chains. Most recently an IgG kappa monoclonal was detected in the urine. Because of appropriate concern about plasma cell dyscrasia he was referred for further evaluation. Patient has no symptoms of hypercalcemia. He has other comorbidities including coronary artery disease with stent placement in the LDA and possible near future intervention in the RCA. He is followed closely by cardiology including interventional. He smokes but no significant history of alcohol consumption. He has occasional pain or discomfort in the spine [facility] - Medical History Medical History: Medical History (Last Updated 05/09/22 @ 13:47 by Frances Hidalgo) COVID Diabetes Diabetic retinopathy History of myocardial infarction History of placement of stent in LAD coronary artery Hypercholesterolemia Hypertension Kidney failure - Surgical History Surgical History: Surgical History (Last Updated 05/09/22 @ 13:48 by Frances Hidalgo) H/O eye surgery left to repair retina Hx of knee surgery Hx of vasectomy - Family History Family History: Family History (Last Reviewed 05/09/22 @ 13:34 by Frances Hidalgo) Other Diabetes Stroke - Social History Smoking Status: Current every day smoker Tobacco Type: cigarettes Substance Use Type: None Home Medications & Allergies Allergies No Known Allergies Allergy (Verified 05/09/22 13:37) Home Medications insulin glargine 100 unit/mL (3 mL) subcutaneous pen (Basaglar KwikPen U-100 Insulin) 20 unit subcut DAILY 09/11/21 [History Confirmed 05/09/22] losartan 25 mg tablet 25 mg PO DAILY 09/11/21 [History Confirmed 05/09/22] carvedilol 12.5 mg tablet 12.5 mg PO BID 11/13/21 [History Confirmed 05/09/22] escitalopram oxalate 10 mg tablet 10 mg PO DAILY 11/13/21 [History Confirmed 05/09/22] famotidine 20 mg tablet 20 mg PO BID 11/13/21 [History Confirmed 05/09/22] aspirin 81 mg chewable tablet (Children's Aspirin) 81 mg PO DAILY #0 tabs 11/17/21 [Rx Confirmed 05/09/22] atorvastatin 80 mg tablet 80 mg PO QPM 30 days #30 tabs 11/17/21 [Rx Confirmed 05/09/22] clopidogrel 75 mg tablet (Plavix) 75 mg PO DAILY 30 days #30 tabs 11/17/21 [Rx Confirmed 05/09/22] furosemide 40 mg tablet 40 mg PO DAILY.8A 30 days #30 tabs 11/17/21 [Rx Confirmed 05/09/22] nitroglycerin 0.4 mg sublingual tablet 0.4 mg sublingual Q5MIN.X3 PRN Chest Pain30 days #25 tabs 11/17/21 [Rx Confirmed 05/09/22] hydralazine 25 mg tablet 50 mg PO TID 30 days #180 tabs 11/18/21 [Rx Confirmed 05/09/22] epoetin alexus-epbx 20,000 unit/mL injection solution (Retacrit) 20,000 unit subcut QMONTH 04/09/22 [History Confirmed 05/09/22] ergocalciferol (vitamin D2) 1,250 mcg (50,000 unit) capsule 1,250 mcg PO QWEEK 04/09/22 [History Confirmed 05/09/22] omeprazole 40 mg capsule,delayed release 40 mg PO DAILY 05/09/22 [History Confirmed 05/09/22] Subjective Data Subjective/ROS - Narrative: CONSTITUTIONAL: No weight loss, fever, chills, weakness or fatigue. HEENT: Eyes: No visual loss, blurred vision, double vision or yellow sclerae. Ears, Nose, Throat: No hearing loss, epistaxis. SKIN: No rash or itching. CARDIOVASCULAR: No chest pain, chest pressure or chest discomfort. No palpitations or edema. RESPIRATORY: No shortness of breath, cough or hemoptysis. GASTROINTESTINAL: No dysphagia, nausea, vomiting or diarrhea. No abdominal pain,melena, hematochezia. GENITOURINARY: No dysuria, urinary frequency or urgency. NEUROLOGICAL: No headache, dizziness, syncope, numbness or tingling in the extremities. MUSCULOSKELETAL: No muscle, back pain, joint pain or stiffness. HEMATOLOGIC: No bleeding or bruising. LYMPHATICS: No enlarged nodes. PSYCHIATRIC: No history of depression or anxiety. ENDOCRINOLOGIC: No reports of sweating, cold or heat intolerance. No polyuria orpolydipsia. ALLERGIES: No history of asthma, hives, eczema or rhinitis. Objective - Height/Weight Height/Weight: Height 6 ft Weight 75.432 kg - Vital Signs Vital Signs: 05/09/22 13:45 Temperature 98 F Pulse Rate [Right Brachial] 73 Respiratory Rate 20 Blood Pressure [Right Arm] 126/80 02 Sat by Pulse Oximetry 99 Oxygen Delivery Method Room Air Physical Exam Narrative: GENERAL APPEARANCE: Well developed, well nourished, in no acute distress. SKIN: Inspection of the skin reveals no rashes, ulcerations or petechiae. HEENT: The sclerae were anicteric and conjunctivae were pink and moist. EOMI, PERRLA. The oral mucosa is moist and clear. NECK: Supple and symmetric. There was no thyroid enlargement, and no tenderness,or masses were felt. CHEST: Normal contour without any kyphoscoliosis. LUNGS: Normal breath sounds on auscultation without rales, rhonchi, or crackles. CARDIOVASCULAR: S1 and S2, regular rate and rhythm, no murmurs, gallops, rubs. ABDOMEN: Soft, nontender, bowel sounds normal. No hepatosplenomegaly. No mass palpated. LYMPH NODES: No lymphadenopathy was appreciated in the neck, axillae or groin. MUSCULOSKELETAL: Gait was normal. There was no tenderness or effusions noted. Muscle strength and tone were normal. EXTREMITIES: No cyanosis, clubbing or edema. NEUROLOGIC: Alert and oriented x 3. Normal affect. Gait was normal. Sensation totouch was normal. - ECOG Performance Status ECOG Score: 0 Assessment and Plan (1) MGUS (monoclonal gammopathy of unknown significance) Patient has urinary IgG MGUS. Has mild elevation of kappa/lambda ratio. Given his renal insufficiency this is most likely not significant specially that its less than 3. 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 We will schedule him for bone marrow biopsy with [place] red stain as well as skeletal survey. We prefer not to take him off Plavix since the stent was placed around September 2021 and proceed with a bone marrow biopsy with good pressure and ice packing following the procedure. However we will check with interventional radiology about that. We will also check with his interventionalcardiologist Dr. Gomez to ensure safety and stability - Time with Patient Coordination of Care & Counseling Time: Greater than 50% of time spent with patient was for coordination of care (as documented) and [id number] counseling of patient and/or family. Dictated By: Jorje Small MD DD/ 1808 Signed By: <Electronically signed by Jorje Small MD> 05/09/22 5501 [facility] Work Phone: 1(197) 585-679709-02-2022 Evaluation note* Encounter Date Diagnosis Assessment Notes Treatment Notes Treatment Clinical Notes Apr, Anemia of renal disease (ICD-10 - D63.1) Apr, Chronic kidney disease, stage III (moderate) (ICD-10 - N18.30) Shortlist Other 08-17-2022 Evaluation note* Encounter Date Diagnosis Assessment Notes Treatment Notes Treatment Clinical Notes Mar, Secondary hyperparathyroidism (ICD-10 - N25.81) Shortlist Other 08-11-2022 Evaluation note* Encounter Date Diagnosis Assessment Notes Treatment Notes Treatment Clinical Notes Mar, Proteinuria (ICD-10 - R80.9) He has a proteinuria likely nephrotic range with the diabetic nephropathy. He had an mild elevated serum free light chain ratio likely due to the CKD. He had unremarkable SPEP, UPEP and 24-hour urinary free light chain ratio but inconclusive serum and urine immunofixation. He has normal complement C3 and C4, MARYAM and ANCA serologies. I have repeat paraproteinemia work-up. I have explained to him due to the recent AL and dual antiplatelet therapy biopsy will be high risk so we will not pursue it. Mar, Chronic kidney disea se, stage III (moderate) (ICD-10 - N18.30) He has a CKD due to the DM and HTN. His serum creatinine is 3.0 mg/dL above his baseline 2.0 mg/dL. His renal function has declined either due to the progression of his CKD in the setting of uncontrolled DM or maybe hemodynamic changes. I discussed with the importance of good DM and HTN control instructed on the progression of CKD. I explained to potential need of WOOD PLANER in near future. I discussed with him different option of WOOD PLANER including PD, transplant, HD. 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 Advised him fluid restriction. I have advised him to take Lasix 80 mg daily for 7 days then cut back to 40 mg daily. Continue current diabetes medication including losartan and carvedilol. I have advised him to monitor his blood pressure at home and call office if stays above 140/90 mmHg. If Bp stays high then will aid amlodipine. Mar, Anemia of renal dise ase (ICD-10 - D63.1) Hemoglobin was below the goal but has adequate iron stores. Is a protective order was approved by the insurance but was not given today due to his uncontrolled hypertension. He reported that he was all stressed out due to the abnormal labs and worries for possible cancer. He also has gained 13 pounds. Mar, Secondary hyperparathyroidism (ICD-10 - N25.81) He has a secondary hyperparathyroidism due to the vitamin D deficiency.and CKD. Continue oral ergocalciferol. Mar, Diabetes mellitus wi th chronic kidney disease (ICD-10 - E11.22) He has insulin-dependent type 2 diabetes mellitus. Continue to log PCP for DM management. Continue losartan for renal protection. Shortlist Other 05-03-2022 Evaluation note* Encounter Date Diagnosis Assessment Notes Treatment Notes Treatment Clinical Notes December, Proteinuria (ICD-10 - R80.9) He has a proteinuria likely nephrotic range with the diabetic nephropathy. He has 24-hour urinary free light chain ratio and inconclusive serum and urine with a suggestion. He has a normal complement C3 and C4, MARYAM and ANCA serologies. December, Chronic kidney disea se, stage III (moderate) (ICD-10 - N18.30) He has a CKD due to the DM and HTN. Baseline serum creatinine is 1.4 to 1.8 mg/dL. I discussed with the importance of good DM and HTN control instructed on the progression of CKD. 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 Advised him fluid restriction. Continue current diabetes medication including losartan and carvedilol. December, Anemia of renal dise ase (ICD-10 - D63.1) Hemoglobin was below the goal he had iron deficiency. We will repeat the CBC and iron studies. December, Secondary hyperparathyroidism (ICD-10 - N25.81) Calcium within normal limit. We will check PTH and vitamin D. December, Diabetes mellitus wi th chronic kidney disease (ICD-10 - E11.22) He has insulin-dependent type 2 diabetes mellitus. Continue to log PCP for DM management. Continue losartan for renal protection. Shortlist Other 03-23-2022 Evaluation note* Encounter Date Diagnosis Assessment Notes Treatment Notes Treatment Clinical Notes Oct, Proteinuria (ICD-10 - R80.9) He has a proteinuria likely nephrotic range with the diabetic nephropathy. Other differential diagnoses are paraproteinemia, hepatitis MPGN, primary FSGS, membranous nephropathy or minimal-change disease. I discussed with him the option of a kidney biopsy for definitive diagnosis. He agrees for it. I have ordered a renal ultrasound cardiorenal kidney biopsy. Oct, Nephrotic syndrome (ICD-10 - N04.9) He has hypoalbuminemia, proteinuria and anasarca likely due to the secondary nephrotic syndrome related to diabetic nephropathy. I have advised him to limit her fluid intake to 50 ounces a day and increase the torsemide 60 mg daily. 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 Increase torsemide continue current diabetes medication including amlodipine, losartan and carvedilol. Oct, Anemia of renal dise ase (ICD-10 - D63.1) Hemoglobin is below the goal. Will check iron studies. Oct, Chronic kidney disea se, stage III (moderate) (ICD-10 - N18.30) He has a CKD due to the DM and HTN. Baseline serum creatinine is 1.4 to 1.8 mg/dL. I discussed with the importance of good DM and HTN control instructed on the progression of CKD. Oct, Secondary hyperparathyroidism (ICD-10 - N25.81) Calcium within normal limit. We will check PTH and vitamin D. Oct, Diabetes mellitus wi th chronic kidney disease (ICD-10 - E11.22) He has insulin-dependent type 2 diabetes mellitus. Continue to log PCP for DM management. Continue losartan for renal protection. Shortlist Other 02-14-2022 NoteHNO ID: [id number] Author: Clarke Allen MD Service: ? 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 Gonzales this Saturday as scheduled RTC 2 weeks IOP check Cataract OU -NVS. monitor PDR OU -sees Dr. Gonzales [facility] [place] -s/p Avastin OU last 09/08/21 -s/p PPV/SO/scleral buckle(unsure if buckle,not visible on exam) 09/18/21 I, Clarke Allen MD, have confirmed and edited as necessary the relevant ophthalmic history, ROS, and the neuro exam findings as obtained by others. I have seen and examined Yoel Werner. I have discussed the case and the management of this patient's care with the Resident/Fellow, if applicable. I also have reviewed and agree with the assessment and plan as stated above and agree with all of its relevant components. Clarke Allen MD [facility] Author Jorje [facility] May 09, 2022 3:02pm Note Date/Time May 09, 2022 2:53pm [facility] [place] [address] Hem/Onc Consult Note - OP Signed Patient: Yoel Werner MR#: [id number] : 1985 Acct:[id number] Age/Sex: 37 / M Type: REG RCR Copies to: MD Rolando Castellano,DO~ HPI Date/Time of Service: Date of Service: 05/09/2022 Time of Service: 14:53 Referring Provider/PCP: Referring Provider: Angel Mejía MD PCP: Rolando Olivares DO - History of Present Illness Reason for Consultation: MGUS Chief Complaint: Patient is here for a referral from Dr Mejía for monocolonal protein. HPI: Patient is a 37-year-old white gentleman who is here with his for evaluation and management of an MGUS. He has longstanding chronic kidney disease secondary to his diabetes mellitus. He has had previous labs including protein electrophoresis, immunofixation in both serum and urine as well as free light chains. Most recently an IgG kappa monoclonal was detected in the urine. Because of appropriate concern about plasma cell dyscrasia he was referred for further evaluation. Patient has no symptoms of hypercalcemia. He has other comorbidities including coronary artery disease with stent placement in the LDA and possible near future intervention in the RCA. He is followed closely by cardiology including interventional. He smokes but no significant history of alcohol consumption. He has occasional pain or discomfort in the spine PMFSH - Medical History Medical History: Medical History (Last Updated 05/09/22 @ 13:47 by Frances Hidalgo) COVID Diabetes Diabetic retinopathy History of myocardial infarction History of placement of stent in LAD coronary artery Hypercholesterolemia Hypertension Kidney failure - Surgical History Surgical History: Surgical History (Last Updated 05/09/22 @ 13:48 by Frances Hidalgo) H/O eye surgery left to repair retina Hx of knee surgery Hx of vasectomy - Family History Family History: Family History (Last Reviewed 05/09/22 @ 13:34 by Frances Hidalgo) Other Diabetes Stroke - Social History Smoking Status: Current every day smoker Tobacco Type: cigarettes Substance Use Type: None Home Medications & Allergies Allergies No Known Allergies Allergy (Verified 05/09/22 13:37) Home Medications insulin glargine 100 unit/mL (3 mL) subcutaneous pen (Basaglar KwikPen U-100 Insulin) 20 unit subcut DAILY 09/11/21 [History Confirmed 05/09/22] losartan 25 mg tablet 25 mg PO DAILY 09/11/21 [History Confirmed 05/09/22] carvedilol 12.5 mg tablet 12.5 mg PO BID 11/13/21 [History Confirmed 05/09/22] escitalopram oxalate 10 mg tablet 10 mg PO DAILY 11/13/21 [History Confirmed 05/09/22] famotidine 20 mg tablet 20 mg PO BID 11/13/21 [History Confirmed 05/09/22] aspirin 81 mg chewable tablet (Children's Aspirin) 81 mg PO DAILY #0 tabs 11/17/21 [Rx Confirmed 05/09/22] atorvastatin 80 mg tablet 80 mg PO QPM 30 days #30 tabs 11/17/21 [Rx Confirmed 05/09/22] clopidogrel 75 mg tablet (Plavix) 75 mg PO DAILY 30 days #30 tabs 11/17/21 [Rx Confirmed 05/09/22] furosemide 40 mg tablet 40 mg PO DAILY.8A 30 days #30 tabs 11/17/21 [Rx Confirmed 05/09/22] nitroglycerin 0.4 mg sublingual tablet 0.4 mg sublingual Q5MIN.X3 PRN Chest Pain30 days #25 tabs 11/17/21 [Rx Confirmed 05/09/22] hydralazine 25 mg tablet 50 mg PO TID 30 days #180 tabs 11/18/21 [Rx Confirmed 05/09/22] epoetin alexus-epbx 20,000 unit/mL injection solution (Retacrit) 20,000 unit subcut QMONTH 04/09/22 [History Confirmed 05/09/22] ergocalciferol (vitamin D2) 1,250 mcg (50,000 unit) capsule 1,250 mcg PO QWEEK 04/09/22 [History Confirmed 05/09/22] omeprazole 40 mg capsule,delayed release 40 mg PO DAILY 05/09/22 [History Confirmed 05/09/22] Subjective Data Subjective/ROS - Narrative: CONSTITUTIONAL: No weight loss, fever, chills, weakness or fatigue. HEENT: Eyes: No visual loss, blurred vision, double vision or yellow sclerae. Ears, Nose, Throat: No hearing loss, epistaxis. SKIN: No rash or itching. CARDIOVASCULAR: No chest pain, chest pressure or chest discomfort. No palpitations or edema. RESPIRATORY: No shortness of breath, cough or hemoptysis. GASTROINTESTINAL: No dysphagia, nausea, vomiting or diarrhea. No abdominal pain,melena, hematochezia. GENITOURINARY: No dysuria, urinary frequency or urgency. NEUROLOGICAL: No headache, dizziness, syncope, numbness or tingling in the extremities. MUSCULOSKELETAL: No muscle, back pain, joint pain or stiffness. HEMATOLOGIC: No bleeding or bruising. LYMPHATICS: No enlarged nodes. PSYCHIATRIC: No history of depression or anxiety. ENDOCRINOLOGIC: No reports of sweating, cold or heat intolerance. No polyuria orpolydipsia. ALLERGIES: No history of asthma, hives, eczema or rhinitis. Objective - Height/Weight Height/Weight: Height 6 ft Weight 75.432 kg - Vital Signs Vital Signs: 05/09/22 13:45 Temperature 98 F Pulse Rate [Right Brachial] 73 Respiratory Rate 20 Blood Pressure [Right Arm] 126/80 02 Sat by Pulse Oximetry 99 Oxygen Delivery Method Room Air Physical Exam Narrative: GENERAL APPEARANCE: Well developed, well nourished, in no acute distress. SKIN: Inspection of the skin reveals no rashes, ulcerations or petechiae. HEENT: The sclerae were anicteric and conjunctivae were pink and moist. EOMI, PERRLA. The oral mucosa is moist and clear. NECK: Supple and symmetric. There was no thyroid enlargement, and no tenderness,or masses were felt. CHEST: Normal contour without any kyphoscoliosis. LUNGS: Normal breath sounds on auscultation without rales, rhonchi, or crackles. CARDIOVASCULAR: S1 and S2, regular rate and rhythm, no murmurs, gallops, rubs. ABDOMEN: Soft, nontender, bowel sounds normal. No hepatosplenomegaly. No mass palpated. LYMPH NODES: No lymphadenopathy was appreciated in the neck, axillae or groin. MUSCULOSKELETAL: Gait was normal. There was no tenderness or effusions noted. Muscle strength and tone were normal. EXTREMITIES: No cyanosis, clubbing or edema. NEUROLOGIC: Alert and oriented x 3. Normal affect. Gait was normal. Sensation totouch was normal. - ECOG Performance Status ECOG Score: 0 Assessment and Plan (1) MGUS (monoclonal gammopathy of unknown significance) Patient has urinary IgG MGUS. Has mild elevation of kappa/lambda ratio. Given his renal insufficiency this is most likely not significant specially that its less than 3. 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 We will schedule him for bone marrow biopsy with [place] red stain as well as skeletal survey. We prefer not to take him off Plavix since the stent was placed around September 2021 and proceed with a bone marrow biopsy with good pressure and ice packing following the procedure. However we will check with interventional radiology about that. We will also check with his interventionalcardiologist Dr. Gomez to ensure safety and stability - Time with Patient Coordination of Care & Counseling Time: Greater than 50% of time spent with patient was for coordination of care (as documented) and [id number] counseling of patient and/or family. Dictated By: Jorje Small MD DD/ [id number] Signed By: <Electronically signed by Jorje Small MD> 05/09/22 1509 [facility] Work Phone: Consult note Author Nancy Haas [facility] August 13, 2022 1:06pm Note Date/Time August 13, 2022 1:01pm [facility] [address] [place] [address] Nephrology Consult Note Signed Patient: Yoel Werner MR#: [id number] : 1985 Acct:[id number] Age/Sex: 37 / M Adm Date: 2 Loc: Room: [address] [place] [address] Type: ADM INOo Attending Dr: Law Cano MD Copies to: MD Rolando Tao DO Marwan Wassouf, MD~ Providers Consult Date: 08/13/22 Requesting Provider: Law Cano MD Primary Care Provider: Rolando Olivares DO HPI Reason for Consult: Acute kidney injury on chronic kidney disease History of Present Illness: This is a 37-year-old male patient with past medical history of insulin- dependent diabetes mellitus, hypertension, hyperlipidemia, chronic kidney disease stage IV with baseline creatinine around 3.2 to 3.4 mg deciliter, history of non-ST AL status post stent placement. Patient brought in to the hospital for sudden onset of chest pain and syncope while he was urinating at home. Patient was a little drowsy when he arrived but this resolved. Patient stated his chest pain is similar to when he had acute AL. Patient also reportedsome shortness of breath. Blood pressure was elevated at admission. Vital signs has been stable. Patient has been on Lasix 40 mg p.o. daily at home whichwas increased to 80 mg twice daily while inpatient for concern of CHF. Troponincame back slightly positive. Last blood pressure readings was 107/67. Patient feels better but he still have some chest pain located over the left side of hischest. He has no legs edema Reviewed the patient medication. Currently on isosorbide mononitrate 30 mg p.o.daily, hydralazine 50 mg 3 times daily Coreg 12 mg twice daily. He also has been on Epogen for anemia 20,000 q. monthly. Patient also on Plavix and aspirin Serum creatinine at admission was 3.8 mg deciliter so renal team was consulted for PINO on CKD. Patient continues to produce urine. Denied any chest pain. Nolegs edema. No NSAID use. No IV contra exposure. Denies urinary obstructive symptoms PMFSH Vaccinated for COVID-19?: No Medical History (Updated 08/13/22 @ 13:01 by Nancy Haas MD) Anemia CHF (congestive heart failure) COVID Diabetes Diabetic retinopathy History of blood transfusion History of myocardial infarction History of placement of stent in LAD coronary artery Hypercholesterolemia Hypertension Kidney failure Surgical History H/O eye surgery left to repair retina Hx of knee surgery Hx of vasectomy Family History Other Diabetes Stroke Social History Smoking Status: Heavy tobacco smoker Tobacco Type: cigarettes Substance Use Type: None Meds Medications & Allergies Allergies No Known Allergies Allergy (Verified 08/12/22 23:11) Home Medications insulin glargine 100 unit/mL (3 mL) subcutaneous pen (Basaglar KwikPen U-100 Insulin) 12 unit subcut DAILY 09/11/21 [History Confirmed 08/12/22] carvedilol 12.5 mg tablet 12.5 mg PO BID 11/13/21 [History Confirmed 08/12/22] escitalopram oxalate 10 mg tablet 10 mg PO DAILY 11/13/21 [History Confirmed 08/12/22] famotidine 20 mg tablet 20 mg PO BID 11/13/21 [History Confirmed 08/12/22] aspirin 81 mg chewable tablet (Children's Aspirin) 81 mg PO DAILY #0 tabs 11/17/21 [Rx Confirmed 08/12/22] atorvastatin 80 mg tablet 80 mg PO QPM 30 days #30 tabs 11/17/21 [Rx Confirmed 08/12/22] clopidogrel 75 mg tablet (Plavix) 75 mg PO DAILY 30 days #30 tabs 11/17/21 [Rx Confirmed 08/12/22] furosemide 40 mg tablet 40 mg PO DAILY.8A 30 days #30 tabs 11/17/21 [Rx Confirmed 08/12/22] nitroglycerin 0.4 mg sublingual tablet 0.4 mg sublingual Q5MIN.X3 PRN Chest Pain30 days #25 tabs 11/17/21 [Rx Confirmed 08/12/22] hydralazine 25 mg tablet 50 mg PO TID 30 days #180 tabs 11/18/21 [Rx Confirmed 08/12/22] epoetin alexus-epbx 20,000 unit/mL injection solution (Retacrit) 20,000 unit subcut QMONTH 04/09/22 [History Confirmed 08/12/22] ergocalciferol (vitamin D2) 1,250 mcg (50,000 unit) capsule 1,250 mcg PO QWEEK 04/09/22 [History Confirmed 08/12/22] omeprazole 40 mg capsule,delayed release 40 mg PO DAILY 05/09/22 [History Confirmed 08/12/22] insulin lispro 100 unit/mL subcutaneous solution (Humalog U-100 Insulin) 1 sliding scale dose subcut USEASDIRECTD 05/29/22 [History Confirmed 08/12/22] isosorbide mononitrate 30 mg tablet,extended release 24 hr 30 mg PO DAILY 07/09/22 [History Confirmed 08/12/22] Active Medications: Active Medications Acetaminophen (Acetaminophen 325 Mg Tablet) 650 mg PO Q6HR PRN PRN Reason: Pain Scale 1 - 3 or fever Stop: 08/13/23 04:46 Aspirin (Aspirin 81 Mg Tab.Chew) 81 mg PO DAILY RACHELL Stop: 08/13/23 08:59 Last Admin: 08/13/22 08:22 Dose: 81 mg Atorvastatin Calcium (Atorvastatin 80 Mg Tablet) 80 mg PO QPM RACHELL Stop: 08/13/23 20:59 Carvedilol (Carvedilol 12.5 Mg Tablet) 12.5 mg PO BID RACHELL Stop: 08/13/23 08:59 Last Admin: 08/13/22 08:22 Dose: 12.5 mg Clopidogrel Bisulfate (Clopidogrel Bisulfate 75 Mg Tablet) 75 mg PO DAILY RACHELL Stop: 08/13/23 08:59 Last Admin: 08/13/22 08:22 Dose: 75 mg Dextrose (Dextrose 20 % In Water 10 Gm/50 Ml Syringe) 10 - 20 gm IV-PUSH PRN PRN PRN Reason: Hypoglycemia Stop: 08/13/23 07:12 Ergocalciferol (Ergocalciferol 1,250 Mcg (50,000 Units) Capsule) 1,250 mcg PO QWEEK RAHCELL Stop: 08/13/23 08:59 Last Admin: 08/13/22 08:22 Dose: 1,250 mcg Escitalopram Oxalate (Escitalopram 10 Mg Tablet) 10 mg PO DAILY RACHELL Stop: 08/13/23 08:59 Last Admin: 08/13/22 08:22 Dose: 10 mg Famotidine (Famotidine 20 Mg Tablet) 20 mg PO BID RACHELL Stop: 08/13/23 08:59 Last Admin: 08/13/22 08:22 Dose: 20 mg Furosemide (Furosemide 100 Mg/10 Ml Vial) 80 mg IV-PUSH BID@0800,1600 RACHELL Stop: 08/13/23 07:59 Last Admin: 08/13/22 08:22 Dose: 80 mg Glucose (Dextrose 40% Gel 15 Gm Tube) 0 gm PO PRN PRN PRN Reason: Hypoglycemia Stop: 08/13/23 07:10 Heparin Sodium (Porcine) (Heparin 5,000 Unit/Ml Vial) 5,000 unit SUBCUT Q8HR RACHELL Stop: 08/13/23 05:59 Last Admin: 08/13/22 06:32 Dose: 5,000 unit Hydralazine HCl (Hydralazine 20 Mg/Ml Vial) 10 mg IV-PUSH Q4H PRN PRN Reason: Hypertension Stop: 08/13/23 04:46 Hydralazine HCl (Hydralazine 50 Mg Tablet) 50 mg PO TID RACHELL Stop: 08/13/23 08:59 Last Admin: 08/13/22 08:22 Dose: 50 mg Magnesium Sulfate (Magnesium Sulf 2gm-*Swfi*) 2 gm in 50 mls @ 25 mls/hr IV DAILY PRN PRN Reason: Magnesium Level < 1.5 Stop: 08/13/23 04:46 Insulin Aspart (Insulin Aspart 300 Units/3 Ml Insuln.Pen) 0 units SUBCUT TID.WM.HS [facility]; Protocol Stop: 08/13/23 07:59 Last Admin: 08/13/22 11:13 Dose: 3 units Insulin Glargine (Insulin Glargine 300 Units/3 Ml Insuln.Pen) 12 units SUBCUT DAILY [facility] Stop: 08/13/23 08:59 Last Admin: 08/13/22 09:07 Dose: 12 units Isosorbide Mononitrate (Isosorbide Mononitrate 24hr Er 30 Mg Tab.Er.24h) 30 mg PO DAILY [facility] Stop: 08/13/23 08:59 Last Admin: 08/13/22 08:22 Dose: 30 mg Nitroglycerin (Nitroglycerin 0.4 Mg Tab.Subl) 0.4 mg SUBLINGUAL Q5MIN.X3 PRN PRN Reason: Chest Pain Stop: 08/13/23 04:50 Non-Formulary Medication (Epoetin Alexus-Epbx [Retacrit]) 20,000 unit SUBCUT QMONTH [facility] Stop: 08/13/23 04:59 Omeprazole (Omeprazole 20 Mg Capsule.Dr) 40 mg PO DAILY [facility] Stop: 08/13/23 08:59 Last Admin: 08/13/22 08:22 Dose: 40 mg Potassium Chloride (Potassium Chloride Er 20 Meq Tab.Er.Prt) 20 meq PO DAILY PRN PRN Reason: Hypokalemia Stop: 08/13/23 04:46 Potassium Chloride (Potassium Chloride Er 20 Meq Tab.Er.Prt) 40 meq PO DAILY PRN PRN Reason: Hypokalemia Stop: 08/13/23 04:46 Exam Physical Exam Vital Signs: Temp Pulse Resp BP Pulse Ox O2 Del Method 97.4 F L 68 16 107/67 97 Room Air 08/13/22 08:00 08/13/22 11:19 08/13/22 11:19 08/13/22 11:19 08/13/22 11:19 08/13/22 11:19 Narrative: General: No acute distress Head :atraumatic normocephalic Eyes: PERRLA. Neck: no JVD no bruit. Heart: S1-S2. RRR Respiratory: Clear to auscultation. No wheezing. No crackles Abdomen: Soft, positive bowel sounds,no tenderness. Neurology: Awake alert oriented x3. No focal deficits Extremity. No cyanosis. No edema Skin: No skin rash Results Labs CBC & Chem 7: 08/12/22 23:58 08/12/22 23:58 Labs: 08/12/22 08/13/22 23:58 00:49 BUN 45 H Creatinine 3.85 H Albumin 2.4 L Urine Color Yellow Urine Appearance Clear Urine pH 5.5 Ur Specific [place] 1.011 Urine Protein 300 H Urine Glucose (UA) 250 H Urine Ketones Negative Urine Occult Blood 1+ H Urine Nitrite Negative Ur Leukocyte Esterase Negative Urine RBC 10-19 H Urine WBC 1-2 Urine Bacteria None seen Radiology Impressions Impressions - last 24 hours: Impressions Head CT 08/12/22 23:07 IMPRESSION: No acute intracranial findings. Impression dictated by: Alec Flynn M.D.08/13/2022 11:25 AM Dictation Location: [place] [address] Chest X-Ray 08/13/22 04:55 IMPRESSION: No acute process. Impression dictated by: Alec Flynn M.D.08/13/2022 8:22 AM Dictation Location: [place] [address] Any impression(s) listed above is documentation that was entered by the reading physician into a diagnostic report(s) for Yoel Werner. I have reviewed the report(s) and am incorporating any findings in the treatment plan of this patient where applicable. A&P - Nephrology Assessment/Plan (1) Acute kidney injury: Assessment/Problem Details: Acute kidney injury is likely from hemodynamic instability associated with syncope. Serum creatinine 3.8 g deciliter. I doubt the patient has obstructive nephropathy or glomerulonephritis. UA showed 300 mg deciliter protein with RBCs 10-19. 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 Baseline creatinine this year around 3.4 mg deciliter (3) Uncontrolled hypertension: Assessment/Problem Details: Patient presented with systolic blood pressure more than 200. Blood pressure has improved. Currently on home blood pressure medications which include isosorbide mononitrate, hydralazine, and Coreg. (4) Anemia: Assessment/Problem Details: Patient has been receiving EPO as outpatient for renal disease with anemia. He received Epogen 20,000 unit monthly. Hemoglobin is 8.3 g deciliter which below target (5) Chest pain: Assessment/Problem Details: Patient presented with chest pain and some shortness of breath. I doubt the patient has ACS. Symptoms likely related to hypertension. Symptoms has improved with better control of blood pressure Plan - Serum creatinine is close to baseline. Patient nonoliguric. At risk for worsening kidney function due to blood pressure fluctuating. -There is no need for renal placement therapy. -I will switch Lasix back to oral home dose. I doubt the patient has CHF. Patient has no peripheral edema chest x-ray is clear -Continue current blood pressure medications. Might increase hydralazine to 75 mg 3 times daily if blood pressure increases again. Avoid KULDEEP or ARB due to advanced CKD and worsening kidney function. -Chest pain work-up as directed by the primary service. -Check renal function panel in the morning. Continue accurate in and out Thank you for the consult. Renal team will continue to follow. Call if any question or concern. Documented By: Nancy Haas MD 08/13/22 1255 Signed By: <Electronically signed by Nancy Haas MD> 08/13/22 1306 [facility] Work Phone: Consult note Author Denilson Gomez [facility] October 03, 2022 5:14pm Note Date/Time October 03, 2022 5:06pm [facility] [address] [place] [address] Cardiology Consult Note Signed Patient: Yoel Werner MR#: [id number] : 1985 Acct:[id number] Age/Sex: 37 / M Adm Date: 3 Loc: Room: [address] [place] [address] Type: ADM INOo Attending Dr: Ross Catherine MD Copies to: DO Ross Leblanc MD W Scott Sheldon, DO~ Cardiology HPI History of Present Illness Consult Date: 10/03/22 Reason for Consult: Angina pectoris class III?IV, ASHD, type 1 diabetes HPI: Mr. Werner is a 37 year old male seen in interventional cardiology consultation at the request of the hospitalist and patient with recurrent anginapectoris. Patient is well-known to me, he has chronic class II angina generally, and with the new social situations (divorce) along with increased tobacco use, and accelerated hypertension, patient has experienced more regular class III and now class IV angina. He has known diffuse coronary artery disease involving the entire circumflex andRCA vasculature, not amenable to revascularization at least per my last report. In October 2021 he presented with acute non-ST elevation AL, in conjunction with type 1 diabetes and acute on chronic renal insufficiency and discovered to have subtotal occlusion of the LAD which underwent successful revascularization with associated moderate LV dysfunction with ejection fraction at that time of 40 to 45%. The circumflex and RCA were relegated to medical therapies and he overall improved over the year. Currently troponins are negative x3, ECG is sinus rhythm with unchanged inferolateral T wave abnormality (no new changes), creatinine is up to 4.0. Patient is already undergone left brachiocephalic AV fistula for possible dialysis in the near future, however he is unwilling to initiate dialysis at this time. Notably hemoglobin is low at 8.5 g/dL There is no clinical indication at the moment for early invasive management given current anemia and elevated serum creatinine and no evidence of cardiac enzyme elevation and stable ECG, and known diffuse circumflex and RCA diabetic coronary vasculopathy. Therefore I would simply recommend ongoing medical therapy with escalating his hydralazine to 50 mg 3 times daily, isosorbide up to60 mg daily, smoking cessation counseling and can follow-up with cardiology within the next 2 to 4 weeks. All the above was discussed with the patient extensively, he can be discharged. Review of Systems Review of Systems All other systems reviewed & are negative unless noted below or in HPI Constitutional Constitutional: Reports as per HPI ENT Ears, Nose, Mouth, and Throat: Reports system reviewed and no additional complaints, except as documented Cardiovascular Cardiovascular: Reports as per HPI and Reports chest pain at rest Respiratory Respiratory: Reports system reviewed and no additional complaints, except as documented Gastrointestinal Gastrointestinal: Reports system reviewed and no additional complaints, except as documented Genitourinary Genitourinary: Reports system reviewed and no additional complaints, except as documented Musculoskeletal Musculoskeletal: Reports system reviewed and no additional complaints, except asdocumented Integumentary/Breasts Skin/Breast: Reports system reviewed and no additional complaints, except as documented Neurologic Neurologic: Reports system reviewed and no additional complaints, except as documented Psychiatric Psychiatric: Reports as per HPI and Reports depression Comments: Significant psychosocial stress Endocrine Endocrine: Reports as per HPI Comments: Type 1 diabetes PMFSH Vaccinated for COVID-19?: Unknown Medical History (Updated 10/03/22 @ 17:14 by Denilson Gomez DO) Anemia Anxiety Asthmatic bronchitis , chronic CHF (congestive heart failure) COVID history of Diabetes type 1 Diabetic retinopathy GERD (gastroesophageal reflux disease) not being treated currently History of blood transfusion 2020 History of myocardial infarction 2021 History of placement of stent in LAD coronary artery 2021 Hypercholesterolemia Hypertension Kidney failure MGUS (monoclonal gammopathy of unknown significance) PTSD (post-traumatic stress disorder) Smoker Triple vessel disease of the heart Surgical History H/O eye surgery left repair retina Hx of knee surgery scope at age 17 Hx of vasectomy 7yrs ago Family History Mother Diabetes Liver disease Father Stroke HTN (hypertension) IBS (irritable bowel syndrome) Social History Smoking Status: Current every day smoker Tobacco Type: cigarettes Substance Use Type: None Meds Medications and Allergies Allergies No Known Allergies Allergy (Verified 10/03/22 01:00) Home Medications insulin glargine 100 unit/mL (3 mL) subcutaneous pen (Basaglar KwikPen U-100 Insulin) 12 unit subcut QAM 09/11/21 [History Confirmed 10/03/22] carvedilol 12.5 mg tablet 12.5 mg PO BID 11/13/21 [History Confirmed 10/03/22] escitalopram oxalate 10 mg tablet 10 mg PO QHS 11/13/21 [History Confirmed 10/03/22] famotidine 20 mg tablet 40 mg PO QHS 11/13/21 [History Confirmed 10/03/22] atorvastatin 80 mg tablet 80 mg PO QPM 30 days #30 tabs 11/17/21 [Rx Confirmed 10/03/22] nitroglycerin 0.4 mg sublingual tablet 0.4 mg sublingual Q5MIN.X3 PRN Chest Pain30 days #25 tabs 11/17/21 [Rx Confirmed 10/03/22] hydralazine 25 mg tablet 50 mg PO TID 30 days #180 tabs 11/18/21 [Rx Confirmed 10/03/22] epoetin alexus-epbx 20,000 unit/mL injection solution (Retacrit) 20,000 unit subcut QMONTH 04/09/22 [History Confirmed 10/03/22] ergocalciferol (vitamin D2) 1,250 mcg (50,000 unit) capsule 1,250 mcg PO QWEEK 04/09/22 [History Confirmed 10/03/22] omeprazole 40 mg capsule,delayed release 40 mg PO QAM 05/09/22 [History Confirmed 10/03/22] insulin lispro 100 unit/mL subcutaneous solution (Humalog U-100 Insulin) 1 sliding scale dose subcut USEASDIRECTD 05/29/22 [History Confirmed 10/03/22] isosorbide mononitrate 30 mg tablet,extended release 24 hr 30 mg PO QHS 07/09/22[History Confirmed 10/03/22] aspirin 81 mg chewable tablet (Children's Aspirin) 81 mg PO QAM 09/10/22 [History Confirmed 10/03/22] clopidogrel 75 mg tablet (Plavix) 75 mg PO QAM 09/10/22 [History Confirmed 10/03/22] furosemide 40 mg tablet 40 mg PO QAM 09/10/22 [History Confirmed 10/03/22] hydralazine 50 mg tablet 50 mg PO TID 30 days #90 tabs 10/03/22 [Rx] isosorbide mononitrate 60 mg tablet,extended release 24 hr 60 mg PO DAILY.6A 30 days #30 tabs 10/03/22 [Rx] Exam Physical Exam Vital Signs: Temp Pulse Resp BP Pulse Ox O2 Del Method 97.9 F 77 16 171/90 H 98 Room Air 10/03/22 11:46 10/03/22 11:46 10/03/22 11:46 10/03/22 11:46 10/03/22 11:46 10/03/22 11:46 Const General: cooperative, no acute distress and anxious Nutritional Appearance: thin Orientation: alert, awake and oriented x3 HEENT Head: normal to inspection Eyes General: appearance normal, both eyes and all related structures Neck Neck: normal visual inspection Chest Chest palpation & inspection: normal inspection of the chest Resp Effort & Inspection: normal respiratory effort Auscultation: clear to auscultation bilaterally Cardio Palpation: normal PMI Rate: regular rate Rhythm: regular rhythm Heart Sounds: S1 normal and S2 normal Skin General: no rashes or lesions noted Neuro General: patient alert, patient awake and patient oriented x3 Cognition: normal cognition Speech: speech normal Extrem General: no clubbing, cyanosis or edema Other: Left brachiocephalic AV fistula with thrill Results Labs 10/03/22 04:41 10/03/22 04:41 Lab results: Cardiac Enzymes 10/02/22 10/02/22 10/03/22 Range/Units 23:35 23:35 02:28 Total Creatine Kinase 315 H 243 (22-269) U/L CK-MB (CK-2) 8.2 H 5.9 (0.6-6.3) ng/mL CK-MB (CK-2) Rel Index 2.6 H 2.4 (0.00-2.50) % B-Natriuretic Peptide 381.0 H (5-100) pg/mL 10/03/22 Range/Units 09:39 Total Creatine Kinase 213 (22-269) U/L CK-MB (CK-2) 5.6 (0.6-6.3) ng/mL CK-MB (CK-2) Rel Index 2.6 H (0.00-2.50) % B-Natriuretic Peptide (5-100) pg/mL CBC 10/02/22 10/03/22 Range/Units 23:35 04:41 RBC 2.74 L 2.86 L (3.90-5.60) X10E6/uL Hgb 8.3 L 8.5 L (13.0-17.0) g/dL Hct 23.8 L 24.9 L (38.8-50.0) % Plt Count 185 176 (150-450) x10E3/uL Neut # (Auto) 5.1 4.1 (1.8-7.7) x10E3/uL Lymph # (Auto) 1.4 1.7 (1.00-4.8) x10E3/uL [place] # (Auto) 0.4 0.3 (0.0-0.8) x10E3/uL Eos # (Auto) 0.2 0.2 (0.0-0.45) x10E3/uL Baso # (Auto) 0.1 0.1 (0.0-0.2) x10E3/uL Comprehensive Metabolic Panel 10/02/22 10/03/22 Range/Units 23:35 04:41 Sodium 135 L 136 (136-146) mmol/L Potassium 4.4 4.7 (3.5-5.1) mmol/L Chloride 103 108 (95-114) mmol/L Carbon Dioxide 21.3 L 22.6 (22.0-30.0) mmol/L BUN 54 H 55 H (9-23) mg/dL Creatinine 4.16 H 4.17 H (0.64-1.27) mg/dL Glucose 223 H 248 H (70-100) mg/dL Calcium 8.2 8.0 L (8.2-10.2) mg/dL Intake and Output 10/03/22 10/03/22 10/03/22 07:59 15:59 23:59 Intake Total 480 / 480 Balance 480 / 480 Intake: Oral 480 / 480 Other: # Voids 1 # Unmeasured Voids 2 3 Weight 74.2 kg Date of Last Bowel Movement 09/30/22 09/30/22 Patient Weight 10/03/22 23:59 Weight 74.2 kg Lab 10/02/22 10/03/22 23:35 01:39 PT 12.1 INR 1.0 APTT Cancelled 37.1 H EKG Interpretations EKG EKG results cardiology: sinus rhythm Blocks, axis, hypertrophy, ST abn Repolarization changes or abnormalities: nonspecific abnormality, ST segment, and/or T wave A&P - Cardiology (1) Chest pain: Code(s): R07.9 - Chest pain, unspecified (2) CKD (chronic kidney disease): Code(s): N18.9 - Chronic kidney disease, unspecified (3) Anemia: Code(s): D64.9 - Anemia, unspecified (4) Triple vessel disease of the heart: Code(s): I25.10 - Atherosclerotic heart disease of [place] coronary artery without angina pectoris (5) Diabetes: Code(s): E11.9 - Type 2 diabetes mellitus without complications Documented By: Denilson Gomez DO 10/03/225 Signed By: <Electronically signed by Denilson Gomez DO> 10/03/22 4877 [facility] Work Phone: Evaluation + Plan noteExecutive [facility] of [facility] evaluehcgm noteNo InformationNort [employer] Other Evscnavuvz noteNo assessment information available [facility] Work Phone: evaluation note* Diagnosis Onset Date Resolution Status MGUS (monoclonal gammopathy of unknown significance) acute [facility] Work Phone: evaluation note* Diagnosis Onset Date Resolution Status MGUS (monoclonal gammopathy of unknown significance) acute Acute congestive heart failure acute PINO (acute kidney injury) ac [place] Anemia acute CAD (coronary artery disease) acute Chest pain acute Chronic kidney disease, stage IV (severe) acute CKD (chronic kidney disease) acute Diabetes acute HTN (hypertension) acute Syncope acute Uncontrolled hypertension ac [place] [facility] Work Phone: evaluation note* Diagnosis Onset Date Resolution Status Acute congestive heart failure acute PINO (acute kidney injury) [place] Anemia acute CAD (coronary artery disease) acute Chest pain acute Chronic kidney disease, stage IV (severe) acute CKD (chronic kidney disease) acute Diabetes acute HTN (hypertension) acute Syncope acute Uncontrolled hypertension [place] MGUS (monoclonal gammopathy of unknown significance) acute [facility] Work Phone: evaluation note* Diagnosis Screening for genitourinary condition Screening for other and unspecified genitourinary condition [facility] Diagnosis Onset Date Resolution Status Acute congestive heart failure acute PINO (acute kidney injury) [place] Anemia acute CAD (coronary artery disease) acute Chest pain acute Chronic kidney disease, stage IV (severe) acute CKD (chronic kidney disease) acute Diabetes acute HTN (hypertension) acute Syncope acute Uncontrolled hypertension ac [place] MGUS (monoclonal gammopathy of unknown significance) acute Stage 3b chronic kidney disease (CKD) acute [facility] Work Phone: evaluljjlm note* Diagnosis Onset Date Resolution Status Acute congestive heart failure acute PINO (acute kidney injury) [place] Anemia acute CAD (coronary artery disease) acute Chest pain acute Chronic kidney disease, stage IV (severe) acute CKD (chronic kidney disease) acute Diabetes acute HTN (hypertension) acute Syncope acute Uncontrolled hypertension ac [place] MGUS (monoclonal gammopathy of unknown significance) acute Stage 3b chronic kidney disease (CKD) acute Chest pain acute Diabetes acute [facility] Work Phone: Evaluation note* Diagnosis Onset Date Resolution Status Acute congestive heart failure acute PINO (acute kidney injury) [place] Anemia acute CAD (coronary artery disease) acute Chest pain acute Chronic kidney disease, stage IV (severe) acute CKD (chronic kidney disease) acute Diabetes acute HTN (hypertension) acute Syncope acute Uncontrolled hypertension ac [place] MGUS (monoclonal gammopathy of unknown significance) acute Stage 3b chronic kidney disease (CKD) acute Anemia acute Chest pain acute CKD (chronic kidney disease) acute Diabetes acute Triple vessel disease of the heart acute [facility] Work Phone: evaluation note* Diagnosis Onset Date Resolution Status MGUS (monoclonal gammopathy of unknown significance) acute Stage 3b chronic kidney disease (CKD) acute Anemia acute Chest pain acute CKD (chronic kidney disease) acute Diabetes acute Triple vessel disease of the heart acute [facility] Work Phone: evaluation note* Diagnosis Onset Date Resolution Status Anemia acute Chest pain acute CKD (chronic kidney disease) acute Diabetes acute Triple vessel disease of the heart acute [facility] Work Phone: evaluation note* Diagnosis Onset Date Resolution Status Anemia acute CAD (coronary artery disease) acute Chest pain acute Chronic kidney disease, stage IV (severe) acute Diabetes acute GERD (gastroesophageal reflux disease) acute History of placement of stent in LAD coronary artery acute Hypertension acute Kidney failure acute [facility] Work Phone: Evaluation note* Diagnosis Onset Date Resolution Status Anemia acute CAD (coronary artery disease) acute Chest pain acute Chronic kidney disease, stage IV (severe) acute Diabetes acute GERD (gastroesophageal reflux disease) acute History of placement of stent in LAD coronary artery acute Hypertension acute Kidney failure acute MGUS (monoclonal gammopathy of unknown significance) acute Stage 3b chronic kidney disease (CKD) acute [facility] Work Phone: evaluation noteNort Olah[employer] Other Evaluation note* Diagnosis Onset Date Resolution Status MGUS (monoclonal gammopathy of unknown significance) acute Stage 3b chronic kidney disease (CKD) acute [facility] Work Phone: History and physical note Author Isidoro Mesa [facility] August 13, 2022 4:55am Note Date/Time August 13, 2022 4:18am [facility] [address] [place] [address] Hospitalist H&P Signed Patient: Yoel Werner MR#: [id number] : 1985 Acct:[id number] Age/Sex: 37 / M Adm Date: 2 Loc: Room: [address] [place] [address] Type: ADM INOo Attending Dr: Isidoro Mesa DO Copies to: DO Isidoro Leblanc DO~ HPI DATE OF EXAMINATION: 08/13/22 CHIEF COMPLAINT: syncope HISTORY OF PRESENT ILLNESS: Mr Werner is a 37-year-old male with past medical history of insulin- dependent diabetes, hypertension, hyperlipidemia, CKD, tobacco use, NSTEMI status post stenting to the proximal to mid LAD in November presents to hospital today with chief complaint of chest pain and syncope at home. Most of the history will be taken from the chart, upon arrival to the floor in my assessment, the patient was quite drowsy and was very short of answers if even acknowledged the question at all. Per the ED report, the patient was using the restroom and had chest pain when he stood up he states he passed out. He does believe he hit his head, however upon my assessment in the room he denies any head pain. He does not answer if he had any visual changes prior to passing out. He does not answer if this chest pain is similar to chest pain he had withhis previous event in November. The patient has denied any subsequent chest pain since passing out. Review of Systems Review of Systems Other (Unable to do review of systems, patient essentially refuses to answer questions or is very short with his response.) PMFSH Vaccinated for COVID-19?: No Medical History (Updated 08/13/22 @ 04:42 by Isidoro Mesa DO) Anemia CHF (congestive heart failure) COVID Diabetes Diabetic retinopathy History of blood transfusion History of myocardial infarction History of placement of stent in LAD coronary artery Hypercholesterolemia Hypertension Kidney failure Surgical History H/O eye surgery left to repair retina Hx of knee surgery Hx of vasectomy Family History Other Diabetes Stroke Social History Smoking Status: Heavy tobacco smoker Tobacco Type: cigarettes Substance Use Type: None Meds Medications and Allergies Allergies No Known Allergies Allergy (Verified 08/12/22 23:11) Home Medications insulin glargine 100 unit/mL (3 mL) subcutaneous pen (Basaglar KwikPen U-100 Insulin) 12 unit subcut DAILY 09/11/21 [History Confirmed 08/12/22] carvedilol 12.5 mg tablet 12.5 mg PO BID 11/13/21 [History Confirmed 08/12/22] escitalopram oxalate 10 mg tablet 10 mg PO DAILY 11/13/21 [History Confirmed 08/12/22] famotidine 20 mg tablet 20 mg PO BID 11/13/21 [History Confirmed 08/12/22] aspirin 81 mg chewable tablet (Children's Aspirin) 81 mg PO DAILY #0 tabs 11/17/21 [Rx Confirmed 08/12/22] atorvastatin 80 mg tablet 80 mg PO QPM 30 days #30 tabs 11/17/21 [Rx Confirmed 08/12/22] clopidogrel 75 mg tablet (Plavix) 75 mg PO DAILY 30 days #30 tabs 11/17/21 [Rx Confirmed 08/12/22] furosemide 40 mg tablet 40 mg PO DAILY.8A 30 days #30 tabs 11/17/21 [Rx Confirmed 08/12/22] nitroglycerin 0.4 mg sublingual tablet 0.4 mg sublingual Q5MIN.X3 PRN Chest Pain30 days #25 tabs 11/17/21 [Rx Confirmed 08/12/22] hydralazine 25 mg tablet 50 mg PO TID 30 days #180 tabs 11/18/21 [Rx Confirmed 08/12/22] epoetin alexus-epbx 20,000 unit/mL injection solution (Retacrit) 20,000 unit subcut QMONTH 04/09/22 [History Confirmed 08/12/22] ergocalciferol (vitamin D2) 1,250 mcg (50,000 unit) capsule 1,250 mcg PO QWEEK 04/09/22 [History Confirmed 08/12/22] omeprazole 40 mg capsule,delayed release 40 mg PO DAILY 05/09/22 [History Confirmed 08/12/22] insulin lispro 100 unit/mL subcutaneous solution (Humalog U-100 Insulin) 1 sliding scale dose subcut USEASDIRECTD 05/29/22 [History Confirmed 08/12/22] isosorbide mononitrate 30 mg tablet,extended release 24 hr 30 mg PO DAILY 07/09/22 [History Confirmed 08/12/22] Exam Physical Exam Vital Signs: Temp Pulse Resp BP Pulse Ox O2 Del Method 98.4 F 67 14 205/103 H 98 Room Air 08/13/22 02:20 08/13/22 03:30 08/13/22 03:30 08/13/22 03:30 08/13/22 03:30 08/13/22 03:30 Narrative: General: Patient is somnolent however easily arousable, appears noncooperative with HPI Neck: supple no masses, no lymphadenopathy CVS: regular rate and rhythm, no murmurs or gallops Respiratory: clear to auscultation bilaterally, no wheezing or crackles, symmetric expansion GI: soft, nondistended, nontender, positive bowel sounds with no organomegaly Extremity: moves all extremities, no restrictions of movements, no calf tenderness, +1 edema in lower extremities Neuro: AOx3, CN II-VII intact. Moves all extremities in all planes of motion. Skin: dry, intact no rashes or lesions Results Lab Results Labs: Laboratory Last Values Corrected WBC 5.4 X10E3/uL (4.1-10.5) 08/12/22 23:58 Uncorrected WBC Count 5.4 x10E3/uL (4.1-10.5) 08/12/22 23:58 RBC 2.74 X10E6/uL (3.90-5.60) L 08/12/22 23:58 Hgb 8.3 g/dL (13.0-17.0) L 08/12/22 23:58 Hct 23.4 % (38.8-50.0) L 08/12/22 23:58 MCV 85.1 fl (83.5-101) 08/12/22 23:58 MCH 30.1 pg (27.5-35.2) 08/12/22 23:58 MCHC 35.4 g/dL (32.5-35.6) 08/12/22 23:58 RDW 13.6 % (12.0-14.8) 08/12/22 23:58 Plt Count 148 x10E3/uL (150-450) L 08/12/22 23:58 MPV 7.9 fl (6.6-10.1) 08/12/22 23:58 Neut % (Auto) 57.7 % (.) 08/12/22 23:58 Lymph % (Auto) 29.2 % (.) 08/12/22 23:58 [place] % (Auto) 8.9 % (.) 08/12/22 23:58 Eos % (Auto) 2.7 % (.) 08/12/22 23:58 Baso % (Auto) 1.5 % (.) 08/12/22 23:58 Nucleat RBC Rel Count 0.1 /100 WBC (0-0.5) 08/12/22 23:58 Neut # (Auto) 3.1 x10E3/uL (1.8-7.7) 08/12/22 23:58 Lymph # (Auto) 1.6 x10E3/uL (1.00-4.8) 08/12/22 23:58 [place] # (Auto) 0.5 x10E3/uL (0.0-0.8) 08/12/22 23:58 Eos # (Auto) 0.1 x10E3/uL (0.0-0.45) 08/12/22 23:58 Baso # (Auto) 0.1 x10E3/uL (0.0-0.2) 08/12/22 23:58 Monocyte Dist Width 17.67 % (0.00-20.00) 08/12/22 23:58 PT 12.0 Seconds (9.0-12.9) 08/12/22 23:58 INR 1.1 08/12/22 23:58 APTT 36.3 Seconds (25.1-36.5) 08/12/22 23:58 PHA Creatinine Clear 28.24 08/12/22 23:58 Sodium 136 mmol/L (136-146) 08/12/22 23:58 Potassium 4.2 mmol/L (3.5-5.1) 08/12/22 23:58 Chloride 107 mmol/L (95-114) 08/12/22 23:58 Carbon Dioxide 20.9 mmol/L (22.0-30.0) L 08/12/22 23:58 Anion Gap 12.3 mEq/L (6.0-15.0) 08/12/22 23:58 BUN 45 mg/dL (9-23) H 08/12/22 23:58 Creatinine 3.85 mg/dL (0.64-1.27) H 08/12/22 23:58 Est GFR ( Amer) 21 mL/Min 08/12/22 23:58 Est GFR (Non-Af Amer) 18 mL/Min 08/12/22 23:58 Glucose 198 mg/dL (70-100) H 08/12/22 23:58 Calcium 7.7 mg/dL (8.2-10.2) L 08/12/22 23:58 Total Bilirubin 0.4 mg/dL (0.3-1.2) 08/12/22 23:58 AST 12 U/L (10-42) 08/12/22 23:58 ALT 11 U/L (10-60) 08/12/22 23:58 Alkaline Phosphatase 68 U/L (32-92) 08/12/22 23:58 Total Creatine Kinase 236 U/L (22-269) 08/12/22 23:58 CK-MB (CK-2) 6.6 ng/mL (0.6-6.3) H 08/12/22 23:58 CK-MB (CK-2) Rel Index 2.7 % (0.00-2.50) H 08/12/22 23:58 Troponin I High Sens 24 pg/mL (0-20) H 08/12/22 23:58 Total Protein 5.2 gm/dL (6.1-7.9) L 08/12/22 23:58 Albumin 2.4 gm/dL (3.2-5.5) L 08/12/22 23:58 Globulin 2.8 gm/dL 08/12/22 23:58 Albumin/Globulin Ratio 0.9 08/12/22 23:58 Urine Color Yellow (Yellow) 08/13/22 00:49 Urine Appearance Clear (Clear) 08/13/22 00:49 Urine pH 5.5 (5.0-9.0) 08/13/22 00:49 Ur Specific [place] 1.011 (1.001-1.030) 08/13/22 00:49 Urine Protein 300 mg/dL (Negative) H 08/13/22 00:49 Urine Glucose (UA) 250 mg/dL (Normal) H 08/13/22 00:49 Urine Ketones Negative (Negative) 08/13/22 00:49 Urine Occult Blood 1+ (Negative) H 08/13/22 00:49 Urine Nitrite Negative (Negative) 08/13/22 00:49 Urine Bilirubin Negative (Negative) 08/13/22 00:49 Urine Urobilinogen Normal mg/dL (Normal) 08/13/22 00:49 Ur Leukocyte Esterase Negative (Negative) 08/13/22 00:49 Urine RBC 10-19 /HPF (0-4) H 08/13/22 00:49 Urine WBC 1-2 /HPF (0-4) 08/13/22 00:49 Ur Squamous Epith Cells 0-1 /HPF (0-2) 08/13/22 00:49 Urine Bacteria None seen (None Seen) 08/13/22 00:49 Hyaline Casts 0-8 /LPF (0-8) 08/13/22 00:49 A&P - Hospitalist Assessment/Plan (1) Syncope: Plan: ? Chest pain followed by syncope, could be due to some sort of arrhythmia ? BMP essentially normal, checking magnesium this morning ? Slight troponin elevation in the ED, will trend this this morning ?TTE from July 19 shows EF of 55 to 60%, RVSP of 30 and a moderate size left pleural effusion ?Chest x-ray ordered ? Telemetry placed while patient is admitted ? Holding home dose of Lasix 40 mg p.o. every morning, initiate Lasix 80 mg IV twice daily as his creatinine is 3.5 (2) PINO (acute kidney injury): Plan: ? Currently on volume overload ? IV Lasix as mentioned above ? Nephrology consulted (3) Acute congestive heart failure: Plan: See above (4) Chest pain: Plan: See above (5) CKD (chronic kidney disease): Plan: See above Documented By: Isidoro Mesa DO 08/13/22 2825 Signed By: <Electronically signed by Isidoro Mesa DO> 08/13/22 3360 [facility] Work Phone: history general Narrative - Reported* Type Description Date Medical History HYPERTENSION Medical History DIABETES MELLITUS TY PE 2 WITH HYPERGLYCEMIAGAD GENERALIZED ANXIETY DISORDER Medical History CHRONIC VENOUS INSUFFICIENCY Surgical History LEFT KNEE SURGERY Surgical History VASECTOMY Surgical History 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 Hospitalization History SEE ABOVE Shortlist Other history general Narrative - Reported* Type Description Date Medical History HYPERTENSION Medical History DIABETES MELLITUS TY PE 2 WITH HYPERGLYCEMIAGAD GENERALIZED ANXIETY DISORDER Medical History CHRONIC VENOUS INSUFFICIENCY Medical History CHEST PAIN Medical History ELEVATED TROPONIN Medical History PINO (ACUTE KIDNEY INJURY) Medical History ANEMIA Medical History ACUTE COMBINED SYSTOLIC AND MCLEAN TOLIC HEART FAILURE Medical History ANASARCA Medical History CONSTIPATION Surgical History LEFT KNEE SURGERY Surgical History VASECTOMY Surgical History 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 Surgical History HEART STENT X1 LED 11/2021 Hospitalization History SEE ABOVE Hospitalization History CHEST PAIN, PINO, ACUTE COMBINED SYSTOLIC AND DIASTOLIC HEART FAILURE 11/13/2021 Shortlist Other history general Narrative - Reported* Type Description Date Medical History HYPERTENSION Medical History DIABETES MELLITUS TY PE 2 WITH HYPERGLYCEMIAGAD GENERALIZED ANXIETY DISORDER Medical History CHRONIC VENOUS INSUFFICIENCY Medical History CHEST PAIN Medical History ELEVATED TROPONIN Medical History PINO (ACUTE KIDNEY INJURY) Medical History ANEMIA Medical History ACUTE COMBINED SYSTOLIC AND MCLEAN TOLIC HEART FAILURE Medical History ANASARCA Medical History CONSTIPATION Medical History HEART ATTACK Surgical History LEFT KNEE SURGERY Surgical History VASECTOMY Surgical History 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 Surgical History HEART STENT X1 LED 11/2021 Hospitalization History SEE ABOVE Hospitalization History CHEST PAIN, PINO, ACUTE COMBINED SYSTOLIC AND DIASTOLIC HEART FAILURE 11/13/2021 Shortlist Other history general Narrative - Reported* Type Description Date Medical History HYPERTENSION Medical History DIABETES MELLITUS TY PE 2 WITH HYPERGLYCEMIAGAD GENERALIZED ANXIETY DISORDER Medical History CHRONIC VENOUS INSUFFICIENCY Medical History CHEST PAIN Medical History ELEVATED TROPONIN Medical History PINO (ACUTE KIDNEY INJURY) Medical History ANEMIA Medical History ACUTE COMBINED SYSTOLIC AND MCLEAN TOLIC HEART FAILURE Medical History ANASARCA Medical History CONSTIPATION Medical History HEART ATTACK Surgical History LEFT KNEE SURGERY Surgical History VASECTOMY Surgical History 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 Surgical History HEART STENT X1 LED 11/2021 Hospitalization History SEE ABOVE Hospitalization History CHEST PAIN, PINO, ACUTE COMBINED SYSTOLIC AND DIASTOLIC HEART FAILURE 11/13/2021 Hospitalization History SYNCOPE 07/2022 Shortlist Other his20lines general Narrative - Reported* Type Description Date Medical History HYPERTENSION Medical History DIABETES MELLITUS TY PE 2 WITH HYPERGLYCEMIAGAD GENERALIZED ANXIETY DISORDER Medical History CHRONIC VENOUS INSUFFICIENCY Medical History CHEST PAIN Medical History ELEVATED TROPONIN Medical History PINO (ACUTE KIDNEY INJURY) Medical History ANEMIA Medical History ACUTE COMBINED SYSTOLIC AND MCLEAN TOLIC HEART FAILURE Medical History ANASARCA Medical History CONSTIPATION Medical History HEART ATTACK Medical History 10/02/2022 MINOR HEART ATTACK Surgical History LEFT KNEE SURGERY Surgical History VASECTOMY Surgical History 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 Surgical History HEART STENT X1 LED 11/2021 Surgical History FISTULA 09/17/2022 Hospitalization History SEE ABOVE Hospitalization History CHEST PAIN, PINO, ACUTE COMBINED SYSTOLIC AND DIASTOLIC HEART FAILURE 11/13/2021 Hospitalization History SYNCOPE 07/2022 Hospitalization History MINOR HEART ATTACK 2022 Shortlist Other [employer] aka [id number] general Narrative - Reported* Type Description Date Medical History HYPERTENSION Medical History DIABETES MELLITUS TY PE 2 WITH HYPERGLYCEMIAGAD GENERALIZED ANXIETY DISORDER Medical History CHRONIC VENOUS INSUFFICIENCY Medical History CHEST PAIN Medical History ELEVATED TROPONIN Medical History PINO (ACUTE KIDNEY INJURY) Medical History ANEMIA Medical History ACUTE COMBINED SYSTOLIC AND MCLEAN TOLIC HEART FAILURE Medical History ANASARCA Medical History CONSTIPATION Medical History HEART ATTACK Medical History 10/02/2022 MINOR HEART ATTACK Surgical History LEFT KNEE SURGERY Surgical History VASECTOMY Surgical History 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 Surgical History HEART STENT X1 LED 11/2021 Surgical History FISTULA LEFT ARM 09/17/2022 Hospitalization History SEE ABOVE Hospitalization History CHEST PAIN, PNIO, ACUTE COMBINED SYSTOLIC AND DIASTOLIC HEART FAILURE 11/13/2021 Hospitalization History SYNCOPE 07/2022 Hospitalization History MINOR HEART ATTACK 2022 Shortlist Other history general Narrative - Reported* Type Description Date Medical History HYPERTENSION Medical History DIABETES MELLITUS TY PE 2 WITH HYPERGLYCEMIAGAD GENERALIZED ANXIETY DISORDER Medical History CHRONIC VENOUS INSUFFICIENCY Medical History CHEST PAIN Medical History ELEVATED TROPONIN Medical History PINO (ACUTE KIDNEY INJURY) Medical History ANEMIA Medical History ACUTE COMBINED SYSTOLIC AND MCLEAN TOLIC HEART FAILURE Medical History ANASARCA Medical History CONSTIPATION Medical History HEART ATTACK Medical History 10/02/2022 MINOR HEART ATTACK Medical History 12/2022 ANTOTHER HEART ATTACK Surgical History LEFT KNEE SURGERY Surgical History VASECTOMY Surgical History 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 Surgical History HEART STENT X1 LED 11/2021 Surgical History FISTULA LEFT ARM 09/17/2022 Surgical History angioplasty on left arm fistula 11/2022 Surgical History angioplasty on left arm fisutla 12/2022 Hospitalization History SEE ABOVE Hospitalization History CHEST PAIN, PINO, ACUTE COMBINED SYSTOLIC AND DIASTOLIC HEART FAILURE 11/13/2021 Hospitalization History SYNCOPE 07/2022 Hospitalization History MINOR HEART ATTACK 2022 Shortlist Other History general Narrative - ReportedNoCarbonetworks Other History general Narrative - Reported* Type Description Date Medical History HYPERTENSION Medical History DIABETES MELLITUS TY 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 HYPERGLYCEMIAGAD GENERALIZED ANXIETY DISORDER Medical History CHRONIC VENOUS INSUFFICIENCY Medical History CHEST PAIN Medical History ELEVATED TROPONIN Medical History PINO (ACUTE KIDNEY INJURY) Medical History ANEMIA Medical History ACUTE COMBINED SYSTOLIC AND MCLEAN TOLIC HEART FAILURE Medical History ANASARCA Medical History CONSTIPATION Medical History HEART ATTACK Medical History 10/02/2022 MINOR HEART ATTACK Medical History 12/2022 HEART ATTACK Medical History LOW BLOOD SUGAR 12/2022 Surgical History LEFT KNEE SURGERY Surgical History VASECTOMY Surgical History 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 Surgical History HEART STENT X1 LAD 11/2021 Surgical History FISTULA LEFT ARM 09/17/2022 Surgical History angioplasty on left arm fistula 11/2022 Surgical History angioplasty on left arm fisutla 12/2022 Surgical History LHC, PCI/stent RCA x 2 01/2023 Hospitalization History SEE ABOVE Hospitalization History CHEST PAIN, PINO, ACUTE COMBINED SYSTOLIC AND DIASTOLIC HEART FAILURE 11/13/2021 Hospitalization History SYNCOPE 07/2022 Hospitalization History MINOR HEART ATTACK 2022 Hospitalization History HEART ATTACK 12/2022 Shortlist Other History general Narrative - ReportedCarbonetworks Other History general Narrative - Reported* Type Description Date Medical History HYPERTENSION Medical History DIABETES MELLITUS TY PE 2 WITH HYPERGLYCEMIAGAD GENERALIZED ANXIETY DISORDER Medical History CHRONIC VENOUS INSUFFICIENCY Medical History CHEST PAIN Medical History ELEVATED TROPONIN Medical History PINO (ACUTE KIDNEY INJURY) Medical History ANEMIA Medical History ACUTE COMBINED SYSTOLIC AND MCLEAN TOLIC HEART FAILURE Medical History ANASARCA Medical History CONSTIPATION Medical History HEART ATTACK Medical History 10/02/2022 MINOR HEART ATTACK Medical History 12/2022 HEART ATTACK Medical History LOW BLOOD SUGAR 12/2022 Medical History end stage renal disease Surgical History LEFT KNEE SURGERY Surgical History VASECTOMY Surgical History 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 Surgical History HEART STENT X1 LAD 11/2021 Surgical History FISTULA LEFT ARM 09/17/2022 Surgical History angioplasty on left arm fistula 11/2022 Surgical History angioplasty on left arm fisutla 12/2022 Surgical History LHC, PCI/stent RCA x 2 01/2023 Hospitalization History SEE ABOVE Hospitalization History CHEST PAIN, PINO, ACUTE COMBINED SYSTOLIC AND DIASTOLIC HEART FAILURE 11/13/2021 Hospitalization History SYNCOPE 07/2022 Hospitalization History MINOR HEART ATTACK 2022 Hospitalization History HEART ATTACK 12/2022 Shortlist Other Hospital course Narrative No data available for this section [facility] Hospital Discharge instructions Additional Instructions Continue current meds You may return at any time [facility] your [facility]charge instructions Additional Instructions Follow-up with your primary care doctor Return to ED if develop worsening symptoms or concernsK[facility] Work Phone: Hospital Discharge instructions Additional Instructions If your symptoms return/worsen or you develop any further concerns or symptoms please see your doctor or return to the emergency department immediately.[facility] Work Phone: Hospital Discharge instructions Additional Instructions Monitor glucose levels as before.[facility] Work Phone: Hospital Discharge instructions Additional Instructions DISCHARGE INSTRUCTIONS FOR ANGIOPLASTY/CORONARY/PERIPHERAL/STENT IMPLANT FOR ADULT ANTICOAGULATION -Since the greatest risk of a blood clot forming with the stent occurs in the first 2-3 weeks after implantation, you will need to take anticoagulants for at least [?insert date or amount of time?]. ANTICOAGULATION MEDICATION [INSERT MEDICATION NAME: Aspirin 81mg once a day, Clopidogrel (Plavix) 75mg one tablet, STATIN MEDICATION [INSERT MEDICATION NAME: atorvastatin (Lipitor) 80 mg or rosuvastatin (Crestor) 40mg] [Bare Metal Stent (BMS) duration ] [Drug-Eluting Stent (JUAN C) duration] DO NOT discontinue Plavix/Aspirin during the first few months regardless of what you are advised by your family doctor or pharmacist, without first calling the crawler tractor operator who implanted the stent. If you require pain relief during this time, please take only ACETAMINOPHEN (TYLENOL)- NO additional aspirin or ibuprofen. DISCHARGE ACTIVITIES ARE FOLLOWS: First week after discharge: -Take it easy at home, no strenuous activity. -Do not lift or pull objects over 10-15 pounds, including children, and groceries for four weeks. If puncture site is at wrist do NOT lift more than three pounds for three days. - May walk up stairs. -May shower. -No excessive scrubbing of the affected site (groin). -May ride in car. -May resume sexual intercourse after 1-2 weeks. -No MRI for 12 days. -May drive in 4-7 days. -If puncture site is at the wrist do not manipulate the wrist for 24 hours, and no soaking wrist for three days. Second Week: -May take a bath -May start walking 3 times a week for 15-20 minutes at a leisurely pace. You should be able to carry on a conversation comfortably without feeling winded. -No strenuous activity as in jogging, running, weight lifting, stair steppers, etc. until the crawler tractor operator approves these activities. Check with the crawler tractor operator on your first follow-up visit. CALL YOUR PHYSICIAN at [phone]: -If bleeding should occur from the catheter insertion site- apply pressure to the site then immediately call us. -Report any fever, redness, drainage, increased swelling, or firmness at the catheter insertion site. Some bruising or slight swelling may be present at the time of discharge. -Should arm or leg become cold, numb, white, or blue, contact the crawler tractor operator immediately. -IF you should experience episodes of angina, e.g. chest discomfort, heaviness, tightness, pressure burning with or without radiation to the neck, jaw, arms or back- use 1 Nitrostat tablet under your tongue every 5-10 minutes and up to three tablets. IF NO RELIEF, CALL 911 or GO TO THE NEAREST EMERGENCY ROOM. -Please notify our office if you have recurrent angina. -[Cardiac Rehab Education Provided. Participation in the Cardiopulmonary Rehabilitation program is recommended. Please call Central Scheduling at [phone] to schedule your appointment.] The attending crawler tractor operator or [facility] nurse clinician should provide you with specific instructions regarding activity, diet, medications, and further follow up for you. Follow the medication instructions provided on your discharge. If the dosages and instructions on this sheet differ from the dosage and instructions on the bottle, follow the instructions on the bottle. [facility] is not responsible for incorrect prescription information provided by the patient during their visit. Do not stop your medications without consulting your health care provider. Please take the list with you to your next doctor's appointment.[facility] Work Phone: Progress note No data available for this section [facility] [place] reason for referral (narrative) Referred by: TRUONG MOLINA, Mickey Tovar [facility] reason for visit NarrativeREFERRED BY DR. MEJÍA, NEED FOR AV FISTULA, VEIN MAPPING ORDER SENT TO [facility] [place] BY DR. MEJÍA'S OFFICE AND REFERRAL BEING SENTNoCarbonetworks Other Family History No Family History Records FoundUnknown Family Member Name Dates Details Family history of hypertensi on: Father(V17.49, Z82.49) Status:Active Family history of liver dise ase: Mother(V18.59, Z83.79) Status:Active Family history of kidney dis ease: Mother(V18.69, Z84.1) Status:Active Heart problem: Mother Status:Active Family history of hypotensio n: Mother(V17.49, Z82.49) Status:Active Family history of diabetes m ellitus: Mother(V18.0, Z83.3) Status:Active Unknown Family Member Name Dates Details Family history of hypertensi on: Father(V17.49, Z82.49) Status:Active Family history of liver dise ase: Mother(V18.59, Z83.79) Status:Active Family history of kidney dis ease: Mother(V18.69, Z84.1) Status:Active Heart problem: Mother Status:Active Family history of hypotensio n: Mother(V17.49, Z82.49) Status:Active Family history of diabetes m ellitus: Mother(V18.0, Z83.3) Status:Active Unknown Family Member Name Dates Details Family history of hypertensi on: Father(V17.49, Z82.49) Status:Active Family history of liver dise ase: Mother(V18.59, Z83.79) Status:Active Family history of kidney dis ease: Mother(V18.69, Z84.1) Status:Active Heart problem: Mother Status:Active Family history of hypotensio n: Mother(V17.49, Z82.49) Status:Active Family history of diabetes m ellitus: Mother(V18.0, Z83.3) Status:Active Relationship Condition Age at Onset Recorded Date/T frances Not Specified Diabetes mellitus Unknown Cerebrovascular accident (CVA) Unknown Unknown Family Member Name Dates Details Family history of hypertensi on: Father(V17.49, Z82.49) Status:Active Family history of liver dise ase: Mother(V18.59, Z83.79) Status:Active Family history of kidney dis ease: Mother(V18.69, Z84.1) Status:Active Heart problem: Mother Status:Active Family history of hypotensio n: Mother(V17.49, Z82.49) Status:Active Family history of diabetes m ellitus: Mother(V18.0, Z83.3) Status:Active Unknown Family Member Name Dates Details Family history of hypertensi on: Father(V17.49, Z82.49) Status:Active Family history of liver dise ase: Mother(V18.59, Z83.79) Status:Active Family history of kidney dis ease: Mother(V18.69, Z84.1) Status:Active Heart problem: Mother Status:Active Family history of hypotensio n: Mother(V17.49, Z82.49) Status:Active Family history of diabetes m ellitus: Mother(V18.0, Z83.3) Status:Active Relationship Condition Age at Onset Recorded Date/T frances Not Specified Diabetes mellitus Unknown Disorder of liver Unknown father Cerebrovascular accident (CVA) Unknown Hypertension Unknown Irritable bowel syndrome Unknown Unknown Family Member Name Dates Details Family history of hypertensi on: Father(V17.49, Z82.49) Status:Active Family history of liver dise ase: Mother(V18.59, Z83.79) Status:Active Family history of kidney dis ease: Mother(V18.69, Z84.1) Status:Active Heart problem: Mother Status:Active Family history of hypotensio n: Mother(V17.49, Z82.49) Status:Active Family history of diabetes m ellitus: Mother(V18.0, Z83.3) Status:Active Unknown Family Member Name Dates Details Family history of hypertensi on: Father(V17.49, Z82.49) Status:Active Family history of liver dise ase: Mother(V18.59, Z83.79) Status:Active Family history of kidney dis ease: Mother(V18.69, Z84.1) Status:Active Heart problem: Mother Status:Active Family history of hypotensio n: Mother(V17.49, Z82.49) Status:Active Family history of diabetes m ellitus: Mother(V18.0, Z83.3) Status:Active Unknown Family Member Name Dates Details Family history of hypertensi on: Father(V17.49, Z82.49) Status:Active Family history of liver dise ase: Mother(V18.59, Z83.79) Status:Active Family history of kidney dis ease: Mother(V18.69, Z84.1) Status:Active Heart problem: Mother Status:Active Family history of hypotensio n: Mother(V17.49, Z82.49) Status:Active Family history of diabetes m ellitus: Mother(V18.0, Z83.3) Status:Active Unknown Family Member Name Dates Details Family history of hypertensi on: Father(V17.49, Z82.49) Status:Active Family history of liver dise ase: Mother(V18.59, Z83.79) Status:Active Family history of kidney dis ease: Mother(V18.69, Z84.1) Status:Active Heart problem: Mother Status:Active Family history of hypotensio n: Mother(V17.49, Z82.49) Status:Active Family history of diabetes m ellitus: Mother(V18.0, Z83.3) Status:Active Unknown Family Member Name Dates Details Family history of hypertensi on: Father(V17.49, Z82.49) Status:Active Family history of liver dise ase: Mother(V18.59, Z83.79) Status:Active Family history of kidney dis ease: Mother(V18.69, Z84.1) Status:Active Heart problem: Mother Status:Active Family history of hypotensio n: Mother(V17.49, Z82.49) Status:Active Family history of diabetes m ellitus: Mother(V18.0, Z83.3) Status:Active Unknown Family Member Name Dates Details Family history of hypertensi on: Father(V17.49, Z82.49) Status:Active Family history of liver dise ase: Mother(V18.59, Z83.79) Status:Active Family history of kidney dis ease: Mother(V18.69, Z84.1) Status:Active Heart problem: Mother Status:Active Family history of hypotensio n: Mother(V17.49, Z82.49) Status:Active Family history of diabetes m ellitus: Mother(V18.0, Z83.3) Status:Active Unknown Family Member Name Dates Details Family history of hypertensi on: Father(V17.49, Z82.49) Status:Active Family history of liver dise ase: Mother(V18.59, Z83.79) Status:Active Family history of kidney dis ease: Mother(V18.69, Z84.1) Status:Active Heart problem: Mother Status:Active Family history of hypotensio n: Mother(V17.49, Z82.49) Status:Active Family history of diabetes m ellitus: Mother(V18.0, Z83.3) Status:Active Relationship Condition Age at Onset Recorded Date/T frances Not Specified Disorder of liver Unknown Diabetes mellitus Unknown father Hypertension Unknown Irritable bowel syndrome Unknown Cerebrovascular accident (CVA) Unknown Diverticulitis Unknown Unknown Family Member Name Dates Details Family history of liver dise ase: Mother(V18.59, Z83.79) Status:Active Family history of hypertensi on: Father(V17.49, Z82.49) Status:Active Family history of kidney dis ease: Mother(V18.69, Z84.1) Status:Active Heart problem: Mother Status:Active Family history of hypotensio n: Mother(V17.49, Z82.49) Status:Active Family history of diabetes m ellitus: Mother(V18.0, Z83.3) Status:Active Unknown Family Member Name Dates Details Family history of diabetes m ellitus: Mother(V18.0, Z83.3) Status:Active Family history of hypotensio n: Mother(V17.49, Z82.49) Status:Active Heart problem: Mother Status:Active Family history of kidney dis ease: Mother(V18.69, Z84.1) Status:Active Family history of liver dise ase: Mother(V18.59, Z83.79) Status:Active Family history of hypertensi on: Father(V17.49, Z82.49) Status:Active Unknown Family Member Name Dates Details Family history of hypertensi on: Father(V17.49, Z82.49) Status:Active Family history of liver dise ase: Mother(V18.59, Z83.79) Status:Active Family history of kidney dis ease: Mother(V18.69, Z84.1) Status:Active Heart problem: Mother Status:Active Family history of hypotensio n: Mother(V17.49, Z82.49) Status:Active Family history of diabetes m ellitus: Mother(V18.0, Z83.3) Status:Active Unknown Family Member Name Dates Details Family history of hypertensi on: Father(V17.49, Z82.49) Status:Active Family history of liver dise ase: Mother(V18.59, Z83.79) Status:Active Family history of kidney dis ease: Mother(V18.69, Z84.1) Status:Active Heart problem: Mother Status:Active Family history of hypotensio n: Mother(V17.49, Z82.49) Status:Active Family history of diabetes m ellitus: Mother(V18.0, Z83.3) Status:Active Unknown Family Member Name Dates Details Family history of hypertensi on: Father(V17.49, Z82.49) Status:Active Family history of liver dise ase: Mother(V18.59, Z83.79) Status:Active Family history of kidney dis ease: Mother(V18.69, Z84.1) Status:Active Heart problem: Mother Status:Active Family history of hypotensio n: Mother(V17.49, Z82.49) Status:Active Family history of diabetes m ellitus: Mother(V18.0, Z83.3) Status:Active Unknown Family Member Name Dates Details Family history of hypertensi on: Father(V17.49, Z82.49) Status:Active Family history of liver dise ase: Mother(V18.59, Z83.79) Status:Active Family history of kidney dis ease: Mother(V18.69, Z84.1) Status:Active Heart problem: Mother Status:Active Family history of hypotensio n: Mother(V17.49, Z82.49) Status:Active Family history of diabetes m ellitus: Mother(V18.0, Z83.3) Status:Active Chief Complaint and Reason for Visit Chief Complaint CHF, NStEMI, PCI R80.9 N04.9 I12.9 N18.30 N25.81 E11.22 I10 E10.65 Chief Complaint I10 E10.65 d64.9:R80.9;N04.9;I12.9;D63.1;N18.30;N25.81;E11.2l cp hx heart attack Chief Complaint I10 d64.9:R80.9;N04.9;I12.9;D63.1;N18.30;N25.81;E11.2l cp hx heart attack N18.30 R80.9 I12.9 Chief Complaint I10 E10. d64.9:R80.9;N04.9;I12.9;D63.1;N18.30;N25.81;E11.2l cp hx heart attack N18.30 R80.9 I12.9 MONOCLONAL Reason for Visit MGUS (monoclonal aileen mopathy of unknown significance) Chief Complaint I10 E10.65 d64.9:R80.9;N04.9;I12.9;D63.1;N18.30;N25.81;E11.2l cp hx heart attack N18.30 R80.9 I12.9 MONOCLONAL d47.2 Reason for Visit MGUS (monoclonal aileen mopathy of unknown significance) Chief Complaint I10 E10. d64.9:R80.9;N04.9;I12.9;D63.1;N18.30;N25.81;E11.2l cp hx heart attack N18.30 R80.9 I12.9 d47.2 fever,post biopsy MONOCLONAL Reason for Visit MGUS (monoclonal aileen mopathy of unknown significance) Chief Complaint I10 E10.65 d64.9:R80.9;N04.9;I12.9;D63.1;N18.30;N25.81;E11.2l cp hx heart attack N18.30 R80.9 I12.9 d47.2 fever,post biopsy MONOCLONAL chest pain Reason for Visit MGUS (monoclonal aileen mopathy of unknown significance) Chief Complaint cp hx heart attack N18.30 R80.9 I12.9 d47.2 fever,post biopsy MONOCLONAL chest pain profuse sweating Reason for Visit MGUS (monoclonal aileen mopathy of unknown significance) Chief Complaint cp hx heart attack N18.30 R80.9 I12.9 d47.2 fever,post biopsy MONOCLONAL chest pain profuse sweating labs Reason for Visit MGUS (monoclonal aileen mopathy of unknown significance) Chief Complaint N18.30 R80.9 I12.9 d47.2 fever,post biopsy MONOCLONAL chest pain profuse sweating labs Low blood sugar Reason for Visit MGUS (monoclonal aileen mopathy of unknown significance) Chief Complaint fever,post biopsy MONOCLONAL chest pain profuse sweating labs Low blood sugar i50.9 i25.10 chest pain with syncope Reason for Visit MGUS (monoclonal aileen mopathy of unknown significance) Chief Complaint fever,post biopsy MONOCLONAL chest pain profuse sweating labs Low blood sugar i50.9 i25.10 chest pain with syncope Reason for Visit MGUS (monoclonal aileen mopathy of unknown significance) Acute congestive heart failure PINO (acute kidney injury) Anemia CAD (coronary artery disease) Chest pain Chronic kidney disease, stage IV (severe) CKD (chronic kidney disease) Diabetes HTN (hypertension) Syncope Uncontrolled hypertension Chief Complaint MONOCLONAL chest pain profuse sweating labs Low blood sugar i50.9 i25.10 chest pain with syncope D64.9 N18.4 R80.9 I12.9 D63.1 N25.81 E11.22 Reason for Visit MGUS (monoclonal aileen mopathy of unknown significance) Acute congestive heart failure PINO (acute kidney injury) Anemia CAD (coronary artery disease) Chest pain Chronic kidney disease, stage IV (severe) CKD (chronic kidney disease) Diabetes HTN (hypertension) Syncope Uncontrolled hypertension Chief Complaint profuse sweating labs Low blood sugar i50.9 i25.10 chest pain with syncope D64.9 N18.4 R80.9 I12.9 D63.1 N25.81 E11.22 MONOCLONAL n18.4 r80.9 i12.9 d63.1 n25.81 e11.22 Reason for Visit Acute congestive hea rt failure PINO (acute kidney injury) Anemia CAD (coronary artery disease) Chest pain Chronic kidney disease, stage IV (severe) CKD (chronic kidney disease) Diabetes HTN (hypertension) Syncope Uncontrolled hypertension MGUS (monoclonal gammopathy of unknown significance) Chief Complaint profuse sweating labs Low blood sugar i50.9 i25.10 chest pain with syncope D64.9 N18.4 R80.9 I12.9 D63.1 N25.81 E11.22 n18.4 r80.9 i12.9 d63.1 n25.81 e11.22 MONOCLONAL Reason for Visit Acute congestive hea rt failure PINO (acute kidney injury) Anemia CAD (coronary artery disease) Chest pain Chronic kidney disease, stage IV (severe) CKD (chronic kidney disease) Diabetes HTN (hypertension) Syncope Uncontrolled hypertension MGUS (monoclonal gammopathy of unknown significance) Chief Complaint profuse sweating labs Low blood sugar i50.9 i25.10 chest pain with syncope D64.9 N18.4 R80.9 I12.9 D63.1 N25.81 E11.22 n18.4 r80.9 i12.9 d63.1 n25.81 e11.22 MONOCLONAL ESRD Reason for Visit Acute congestive hea rt failure PINO (acute kidney injury) Anemia CAD (coronary artery disease) Chest pain Chronic kidney disease, stage IV (severe) CKD (chronic kidney disease) Diabetes HTN (hypertension) Syncope Uncontrolled hypertension MGUS (monoclonal gammopathy of unknown significance) Chief Complaint labs Low blood sugar i50.9 i25.10 chest pain with syncope D64.9 N18.4 R80.9 I12.9 D63.1 N25.81 E11.22 n18.4 r80.9 i12.9 d63.1 n25.81 e11.22 MONOCLONAL ESRD ESRD Reason for Visit Acute congestive hea rt failure PINO (acute kidney injury) Anemia CAD (coronary artery disease) Chest pain Chronic kidney disease, stage IV (severe) CKD (chronic kidney disease) Diabetes HTN (hypertension) Syncope Uncontrolled hypertension MGUS (monoclonal gammopathy of unknown significance) Stage 3b chronic kidney disease (CKD) Chief Complaint Low blood sugar i50.9 i25.10 chest pain with syncope D64.9 N18.4 R80.9 I12.9 D63.1 N25.81 E11.22 n18.4 r80.9 i12.9 d63.1 n25.81 e11.22 MONOCLONAL ESRD ESRD Chest pain Reason for Visit Acute congestive hea rt failure PINO (acute kidney injury) Anemia CAD (coronary artery disease) Chest pain Chronic kidney disease, stage IV (severe) CKD (chronic kidney disease) Diabetes HTN (hypertension) Syncope Uncontrolled hypertension MGUS (monoclonal gammopathy of unknown significance) Stage 3b chronic kidney disease (CKD) Chest pain Diabetes Chief Complaint Low blood sugar i50.9 i25.10 chest pain with syncope D64.9 N18.4 R80.9 I12.9 D63.1 N25.81 E11.22 n18.4 r80.9 i12.9 d63.1 n25.81 e11.22 MONOCLONAL ESRD ESRD Chest pain Reason for Visit Acute congestive hea rt failure PINO (acute kidney injury) Anemia CAD (coronary artery disease) Chest pain Chronic kidney disease, stage IV (severe) CKD (chronic kidney disease) Diabetes HTN (hypertension) Syncope Uncontrolled hypertension MGUS (monoclonal gammopathy of unknown significance) Stage 3b chronic kidney disease (CKD) Anemia Chest pain CKD (chronic kidney disease) Diabetes Triple vessel disease of the heart Chief Complaint i50.9 i25.10 chest pain with syncope D64.9 N18.4 R80.9 I12.9 D63.1 N25.81 E11.22 n18.4 r80.9 i12.9 d63.1 n25.81 e11.22 MONOCLONAL ESRD ESRD Chest pain D63.1 E11.22 I12.9 N18.4 N25.81 R80.9 Reason for Visit Acute congestive hea rt failure PINO (acute kidney injury) Anemia CAD (coronary artery disease) Chest pain Chronic kidney disease, stage IV (severe) CKD (chronic kidney disease) Diabetes HTN (hypertension) Syncope Uncontrolled hypertension MGUS (monoclonal gammopathy of unknown significance) Stage 3b chronic kidney disease (CKD) Anemia Chest pain CKD (chronic kidney disease) Diabetes Triple vessel disease of the heart Chief Complaint n18.4 r80.9 i12.9 d6 3.1 n25.81 e11.22 MONOCLONAL ESRD ESRD Chest pain D63.1 E11.22 I12.9 N18.4 N25.81 R80.9 CHF, CAD, R80.9 N18.4 I12.9 D63.1 N25.81 E11.22 Reason for Visit MGUS (monoclonal aileen mopathy of unknown significance) Stage 3b chronic kidney disease (CKD) Anemia Chest pain CKD (chronic kidney disease) Diabetes Triple vessel disease of the heart Chief Complaint n18.4 r80.9 i12.9 d6 3.1 n25.81 e11.22 MONOCLONAL ESRD ESRD Chest pain D63.1 E11.22 I12.9 N18.4 N25.81 R80.9 CHF, CAD, R80.9 N18.4 I12.9 D63.1 N25.81 E11.22 N18.5 I12.9 E87.5 D63.1 N25.81 R80.9 E11.22 Reason for Visit MGUS (monoclonal aileen mopathy of unknown significance) Stage 3b chronic kidney disease (CKD) Anemia Chest pain CKD (chronic kidney disease) Diabetes Triple vessel disease of the heart Chief Complaint n18.4 r80.9 i12.9 d6 3.1 n25.81 e11.22 MONOCLONAL ESRD ESRD Chest pain D63.1 E11.22 I12.9 N18.4 N25.81 R80.9 CHF, CAD, R80.9 N18.4 I12.9 D63.1 N25.81 E11.22 N18.5 I12.9 E87.5 D63.1 N25.81 R80.9 E11.22 n18.6 Reason for Visit MGUS (monoclonal aileen mopathy of unknown significance) Stage 3b chronic kidney disease (CKD) Anemia Chest pain CKD (chronic kidney disease) Diabetes Triple vessel disease of the heart Chief Complaint n18.4 r80.9 i12.9 d6 3.1 n25.81 e11.22 MONOCLONAL ESRD ESRD Chest pain D63.1 E11.22 I12.9 N18.4 N25.81 R80.9 CHF, CAD, R80.9 N18.4 I12.9 D63.1 N25.81 E11.22 N18.5 I12.9 E87.5 D63.1 N25.81 R80.9 E11.22 n18.6 ESRD Reason for Visit MGUS (monoclonal aileen mopathy of unknown significance) Stage 3b chronic kidney disease (CKD) Anemia Chest pain CKD (chronic kidney disease) Diabetes Triple vessel disease of the heart Chief Complaint Chest pain D63.1 E11.22 I12.9 N18.4 N25.81 R80.9 CHF, CAD, R80.9 N18.4 I12.9 D63.1 N25.81 E11.22 N18.5 I12.9 E87.5 D63.1 N25.81 R80.9 E11.22 n18.6 ESRD ESRD Reason for Visit Anemia Chest pain CKD (chronic kidney disease) Diabetes Triple vessel disease of the heart Chief Complaint Chest pain D63.1 E11.22 I12.9 N18.4 N25.81 R80.9 CHF, CAD, R80.9 N18.4 I12.9 D63.1 N25.81 E11.22 N18.5 I12.9 E87.5 D63.1 N25.81 R80.9 E11.22 n18.6 ESRD ESRD ESRD N18.5 I12.9 E87.5 D63.1 N25.81 R80.9 E11.22 left arm injury-recent fistula placed Reason for Visit Anemia Chest pain CKD (chronic kidney disease) Diabetes Triple vessel disease of the heart Chief Complaint CHF, CAD, R80.9 N18. 4 I12.9 D63.1 N25.81 E11.22 CHF, CAD N18.5 I12.9 E87.5 D63.1 N25.81 R80.9 E11.22 n18.6 ESRD ESRD ESRD N18.5 I12.9 E87.5 D63.1 N25.81 R80.9 E11.22 left arm injury-recent fistula placed cp r/o ACF, Uncontrolled HTN Reason for Visit Anemia CAD (coronary artery disease) Chest pain Chronic kidney disease, stage IV (severe) Diabetes GERD (gastroesophageal reflux disease) History of placement of stent in LAD coronary artery Hypertension Kidney failure Chief Complaint CHF, CAD, R80.9 N18. 4 I12.9 D63.1 N25.81 E11.22 CHF, CAD N18.5 I12.9 E87.5 D63.1 N25.81 R80.9 E11.22 n18.6 ESRD ESRD ESRD N18.5 I12.9 E87.5 D63.1 N25.81 R80.9 E11.22 left arm injury-recent fistula placed cp r/o ACF, Uncontrolled HTN AFHD, CHF, Hx of AL Reason for Visit Anemia CAD (coronary artery disease) Chest pain Chronic kidney disease, stage IV (severe) Diabetes GERD (gastroesophageal reflux disease) History of placement of stent in LAD coronary artery Hypertension Kidney failure Chief Complaint CHF, CAD, R80.9 N18. 4 I12.9 D63.1 N25.81 E11.22 CHF, CAD N18.5 I12.9 E87.5 D63.1 N25.81 R80.9 E11.22 n18.6 ESRD ESRD ESRD N18.5 I12.9 E87.5 D63.1 N25.81 R80.9 E11.22 left arm injury-recent fistula placed cp r/o ACF, Uncontrolled HTN AFHD, CHF, Hx of AL AFHD, CHF, Hx of AL Reason for Visit Anemia CAD (coronary artery disease) Chest pain Chronic kidney disease, stage IV (severe) Diabetes GERD (gastroesophageal reflux disease) History of placement of stent in LAD coronary artery Hypertension Kidney failure Chief Complaint ESRD ESRD ESRD N18.5 I12.9 E87.5 D63.1 N25.81 R80.9 E11.22 left arm injury-recent fistula placed cp r/o ACF, Uncontrolled HTN AFHD, CHF, Hx of AL AFHD, CHF, Hx of AL N18.6 I12.9 E87.5 D63.1 N25.81 R80.9 E11.22 MONOCLONAL Reason for Visit Anemia CAD (coronary artery disease) Chest pain Chronic kidney disease, stage IV (severe) Diabetes GERD (gastroesophageal reflux disease) History of placement of stent in LAD coronary artery Hypertension Kidney failure MGUS (monoclonal gammopathy of unknown significance) Stage 3b chronic kidney disease (CKD) Chief Complaint cp r/o ACF, Uncontro lled HTN AFHD, CHF, Hx of AL AFHD, CHF, Hx of AL N18.6 I12.9 E87.5 D63.1 N25.81 R80.9 E11.22 MONOCLONAL Reason for Visit Anemia CAD (coronary artery disease) Chest pain Chronic kidney disease, stage IV (severe) Diabetes GERD (gastroesophageal reflux disease) History of placement of stent in LAD coronary artery Hypertension Kidney failure MGUS (monoclonal gammopathy of unknown significance) Stage 3b chronic kidney disease (CKD) Chief Complaint AFHD, CHF, Hx of AL AFHD, CHF, Hx of AL N18.6 I12.9 E87.5 D63.1 N25.81 R80.9 E11.22 MONOCLONAL ESRD Reason for Visit MGUS (monoclonal aileen mopathy of unknown significance) Stage 3b chronic kidney disease (CKD) Chief Complaint MONOCLONAL T82.898A ESRD I82.898A Reason for Visit MGUS (monoclonal aileen mopathy of unknown significance) Stage 3b chronic kidney disease (CKD) Chief Complaint MONOCLONAL T82.898A ESRD I82.898A ESRD Reason for Visit MGUS (monoclonal aileen mopathy of unknown significance) Stage 3b chronic kidney disease (CKD) Chief Complaint T82.898A ESRD I82.898A ESRD N18.6 Z99.2 Advance Directives No Advanced Directives Records Found Advance Directive Response Recorded Date/ Time Advance Directives No September 11, 2021 10:36pm Advance Directive Response Recorded Date/ Time Advance Directives No September 11, 2021 9:36pm Chief Complaint * YOEL WERNER is being seen for a 12 week follow-up of. * 37-year-old type I diabetic returns for follow-up. He has had sporadic anginal discomfort. He is now had progressive kidney dysfunction most recent creatinine is 3.5 and is followed by nephrology. Hesustained anterior AL in October 2021 with primary revascularization of the LAD with residual circumflex and RCA disease. His left ventricular function at that time was 40 to 45%. He has underlying type 1 diabetes, progressive/chronic kidney disease as noted, ongoing tobacco use, class II angina. * Is [place] [employer] is class IIc and remains hemodynamically stable * Recommendations: Tobacco cessation counseling, initiate isosorbide 30 mg daily for known disease and angina complaints, limited echo to assess LV function, obtain lipid panel and high-sensitivity CRPwe will follow-up again in 6 months * YOEL WERNER is being seen for follow-up of a hospitalization for chest pain. [facility]. * 37-year-old gentleman returns following recent hospitalization for unstable angina and hypertensionand anxiety. We escalated his isosorbide and hydralazine and is feeling much better. * Patient has a prior history of anterior AL in October 2021 with primary revascularization of the proximal through mid LAD. He otherwise has diffuse severe circumflex and RCA disease as reviewed, with preserved LV function upon review of recent echo from October 03 during his most recent hospitalization. * He has type 1 diabetes, chronic renal failure stage IV and continues to follow with nephrology. He remains on DAPT and high-dose statin and as mentioned above the escalated dose of the of isosorbide and hydralazine with excellent hemodynamics today * We will review his angiogram from October of last year simply to see if he has any targets for revascularization and otherwise follow-up in 3 to 4 months. * YOEL WERNER is being seen for follow-up of a hospitalization for chest pain. [facility]. * 37-year-old gentleman returns following recent hospitalization for unstable angina and hypertensionand anxiety. We escalated his isosorbide and hydralazine and is feeling much better. * Patient has a prior history of anterior AL in October 2021 with primary revascularization of the proximal through mid LAD. He otherwise has diffuse severe circumflex and RCA disease as reviewed, with preserved LV function upon review of recent echo from October 03 during his most recent hospitalization. * He has type 1 diabetes, chronic renal failure stage IV and continues to follow with nephrology. He remains on DAPT and high-dose statin and as mentioned above the escalated dose of the of isosorbide and hydralazine with excellent hemodynamics today * We will review his angiogram from October year simply to see if he has any targets for revascularization and otherwise follow-up in 3 to 4 months. * YOEL WERNER is being seen for follow-up of a hospitalization for f/u cath results. * 37-year-old gentleman returns for follow-up following recent completion of his revascularization procedures, most recently the proximal RCA with drug-eluting stents. He has had previous anterior AL with revascularization of the LAD. He has no anginal complaints. * He has type 1 diabetes mellitus, stage V renal failure and is about to embark on hemodialysis therapy, he has no shortness of breath or angina at this juncture and underwent revascularization of the RCA without complications. Fortunately, left ventricular function remains normal by echo from September 2022, with evidence of moderate to severe left ventricular hypertrophy, last lipid panel from October was noted with an LDL of 93 HDL of 31 triglycerides 97 * Recommendations, continue current GDMT and DAPT, follow-up in 6 months * YOEL WERNER is being seen for follow-up of a hospitalization for f/u cath results. * 37-year-old gentleman returns for follow-up following recent completion of his revascularization procedures, most recently the proximal RCA with drug-eluting stents. He has had previous anterior AL with revascularization of the LAD. He has no anginal complaints. * He has type 1 diabetes mellitus, stage V renal failure and is about to embark on hemodialysis therapy, he has no shortness of breath or angina at this juncture and underwent revascularization of the RCA without complications. Fortunately, left ventricular function remains normal by echo from September 2022, with evidence of moderate to severe left ventricular hypertrophy, last lipid panel from October was noted with an LDL of 93 HDL of 31 triglycerides 97 * Recommendations, continue current GDMT and DAPT, follow-up in 6 months Summary Purpose Reason for Referral Reason Patient c/o Peyronie 's disease, decreased libido and ED Diagnosis 1 Peyronie's disease ( N48.6) Diagnosis 2 Decreased libido (R6 8.82) Diagnosis 3 Erectile dysfunction due to arterial insufficiency (N52.01) Referral Organization [facility] Referring Provider First Name Rolando Referring Provider Last Name Marshall Referring Provider Specialty Internal Me dicine Referred Organization [facility] Referred Provider Mickey Guerin Referred Address [address],[place], [place],[address] Referred Provider Specialty Urology Referral Priority Routine General Notes Mr. Werner is req uesting a Urology referral for Peyronie's disease, decreased libido and erectile dysfunction. He has ESRD, T1DM, HTN, HLD and tobacco dependency. He has noticed increased pain and deformity prompting a referral. Due to decreased libido and ED, we are checking a testosterone level. His decreased libido and ED are likely multifactorial and require subspecialty evaluation. Additional Source Comments REASON FOR VISIT (unrecogniz ed section and content) 1 month Follow uplab results [facility]/ 6 Month Check Up2 WK S/P FISTULOGRAM; GFS LEFT ARM 07/02/23HAVING ARTERIAL SPASMS DURING TREATMENT AND COMPLAINING OF PAIN IN ARM AGAIN; GFS 9Ano energy, cough since this weekend [phone] MONTH FOLLOW UP; DIALYSIS PTUremia and AnemiaF/U FISTULOGRAMRENAL INJ RETACRIT7 WK F/U WITH GFS IN OFFICEHEART CATHprescription refillF/U LT AVF CREATION 3WKhospital follow upCKD and HTN Reason Comments Returning Patient's Call RETACRIT INJClinicalREFILLAnemia and CKDCKD and AnemiaCKD , Proteinuria, Edema Care Teams (unrecognized sec tion and content) Team Status: Active Member Role Status Rolando Olivares , DO Primary Care Provider Active Team Status: Inactive Member Role Status Rolando Olivares , DO Primary Care Provider Active Romain Mendoza MD Attending Provider Active Team Status: Active Member Role Status Rolando Olivares , DO Primary Care Provider Active Jorje Small MD Attending Provider Active Angel Mejía MD Referring Provider Active Team Status: Inactive Member Role Status Rolando Olivares , DO Primary Care Provider Active Angel Mejía MD Attending Provider Active Team Status: Inactive Member Role Status Rolando Olivares , DO Primary Care Provider Active Denilson Gomez , DO Attending Provider Active Team Status: Inactive Member Role Status Rolando Olivares , DO Primary Care Provider Active Romain Mendoza MD Attending Provider Active Angel Mejía MD Other Provider Active Team Status: Inactive Member Role Status Rolando Olivares , DO Primary Care Provider Active Eliezer Grijalva APRN Emergency Provider Active Team Status: Inactive Member Role Status Rolando Olivares , DO Primary Care Provider Active Kim Renteria MD Admit Provider Active Nargis Benítez RN Other Provider Active Denilson Gomez , DO Other Provider Active Nery Najera MD Other Provider Active Elder Stewart MD Other Provider Active Iraida Byrd MD Other Provider Active Gerald Gross MD Other Provider Active Chikis Anderson APRN Other Provider Active Janine Gonzalez MD Other Provider Active Mathew Glynn MD Other Provider Active Avani Younger MD Other Provider Active Christy Delarosa [employer]- Other Provider Active Jackie Ross MD Other Provider Active Justino Boss MD Attending Provider Active Team Status: Inactive Member Role Status Laisha Gr DO Emergency Provider Active Rolando Olivares , DO Primary Care Provider Active Evert Renae DO Admit Provider Active Nargis Benítez RN Other Provider Active Denilson Gomez , DO Other Provider Active Nery Najera MD Other Provider Active Elder Stewart MD Other Provider Active Iraida Byrd MD Other Provider Active Gerald Gross MD Other Provider Active Chikis Anderson APRN Other Provider Active Janine Gonzalez MD Other Provider Active Mathew Glynn MD Other Provider Active Avani Younger MD Other Provider Active Christy Delarosa , [facility] Other Provider Active Jackie Ross MD Other Provider Active Ross Catherine MD Attending Provider Active Team Status: Inactive Member Role Status Dates Rolando Olivares , DO Primary Care Provider Active W Rene Gomez , DO Attending Provider Active Angel Mejía MD Other Provider Active Team Status: Inactive Member Role Status Rolando Olivares , DO Primary Care Provider Active Zina Childs NP-C Attending Provider Active Team Status: Inactive Member Role Status Rolando Olivares , DO Primary Care Provider, Attending Pr ovider Active Team Status: Active Member Role Status Rolando Olivares , DO Primary Care Provider Active Denilson Gomez , DO Attending Provider Active Team Status: Inactive Member Role Status Dates Rolando Olivaers , DO Primary Care Provider Active Hector Mann , DO Emergency Provider Active Team Status: Inactive Member Role Status Rolando Olivares , DO Primary Care Provider, Attending Pr ovider Active Angel Mejía MD Referring Provider Active Team Status: Active Member Role Status Laisha Olivares , DO Primary Care Provider Active Angel Mejía MD Attending Provider Active Team Status: Inactive Member Role Status Rolando Olivares , DO Primary Care Provider Active Jorje Small MD Attending Provider Active Team Status: Inactive Member Role Status Rolando Olivares , DO Primary Care Provider Active Romain Roy , DO Emergency Provider Active Team Status: Inactive Member Role Status Dates Rolando Olivares , DO Primary Care Provider Active Rishi Anderson MD Emergency Provider Active Team Status: Inactive Member Role Status Rolando Olivares , DO Primary Care Provider Active Yobani Hansen , DO Emergency Provider Active Team Status: Inactive Member Role Status Dates Zeus Bradley , DO Emergency Provider Active Rolando Olivares , DO Primary Care Provider Active Zinc Plater Relationship Specialty Start Date End Date Rolando Olivares, DO [address] [place] [id number] PCP - General Internal Medicine 10/01/21 Team Status: Active Member Role Status Laisha Olivares , DO Primary Care Provider Active Tenzin Ortiz Jr, MD Emergency Provider Active Isidoro Mesa , DO Admit Provider, Attending Provider Active Team Status: Inactive Member Role Status Dates Rolando Olivares , DO Primary Care Provider Active Denilson Gomez , Attending Provider Active Cipriano Stiles MD Other Provider Active Team Status: Inactive Member Role Status Dates Rolando Marshall , DO Primary Care Provider Active Tenzin Ortiz Jr, MD Emergency Provider Active Isidoro Mesa , DO Admit Provider Active Nancy Haas MD Other Provider Active Law Cano MD Attending Provider Active Team Status: Inactive Member Role Status Dates Rolando Olivares , DO Primary Care Provider Active Law Cano MD Attending Provider Active Angel Mejía MD Referring Provider Active Zinc Plater Relationship Specialty Start Date End Date MarshallRolando Rodríguez, [address] [place] [address] PCP - General Internal Medicine 10/01/21 Team Status: Active Member Role Status Dates Mickey Gr , DO Emergency Provider Active Rolando Olivares , DO Primary Care Provider Active Evert Renae , Admit Provider, Attending Provider Active Goals (unrecognized section and content) Goals may be documented in a n alternate section Source Comments (unrecognize d section and content) In the event this informatio n is protected by the Federal Confidentiality of Alcohol and Drug Abuse Patient Records regulations: The Federal rules restrict any use of the information to criminally investigate or prosecute any alcohol or drug abuse patient.[facility] the event this information is protected by the Federal Confidentiality of Alcohol and Drug Abuse Patient Records regulations: The Federal rules restrict any use of the information to criminally investigate or prosecute any alcohol or drug abuse patient[facility] (unrecognized sect ion and content) No Status Records FoundNo Status Records FoundNo Status Records FoundNo Status Records FoundNo Status Records FoundNo Status Records FoundNo Status Records Found INFORMATION SOURCE (unrecogn ized section and content) DATE CREATED AUTHOR 08/09/2022 [facility] DATE CREATED AUTHOR AUTHOR'S ORGANIZ ATION 09/11/2022 [facility] DATE CREATED AUTHOR AUTHOR'S ORGANIZ ATION 02/27/2023 [facility] DATE CREATED AUTHOR AUTHOR'S ORGANIZ ATION 02/27/2023 [employer] DATE CREATED AUTHOR AUTHOR'S ORGANIZ ATION 07/11/2023 [facility] DATE CREATED AUTHOR AUTHOR'S ORGANIZ ATION 07/30/2023 [facility] DATE CREATED AUTHOR AUTHOR'S ORGANIZ ATION 08/17/2023 [facility] FOR RECORDS PERTAINING TO PATIENTS WHO ARE OR HAVE BEEN ENROLLED IN A CHEMICAL DEPENDENCY/SUBSTANCEABUSE PROGRAM, SOME INFORMATION MAY BE OMITTED. This clinical summary was aggregated from multiple sources. Caution should be exercised in using it in the provision of clinical care. This summary normalizes information from multiple sources, and as a consequence, information in this document may materially change the coding, format and clinical context of patient data. In addition, data may be omitted in some cases. CLINICAL DECISIONS SHOULD BE BASED ON THE PRIMARY CLINICAL RECORDS. [facility] [employer] [facility]. provides no warranty or guarantee of the accuracy or completeness of information in this document.
[2023-08-17 20:21] LABS: Basophils Absolute Auto 0.1 10^3/uL (0.0-0.1); Basophils Percent Auto 0.9 % (0.2-2.0); Eosinophils Absolute Auto 0.2 10^3/uL (0.0-0.7); Eosinophils Percent Auto 2.8 % (0.9-7.0); Hematocrit 34.4 % (42.0-54.0); Hemoglobin 11.7 g/dL (14.0-18.0); Immature Granulocytes Abs Auto 0.02 10^3/uL (0.00-0.03); Immature Granulocytes Pct Auto 0.3 % (0.0-0.5); Lymphocytes Absolute Auto 1.5 10^3/uL (1.2-3.8); Lymphocytes Percent Auto 23.2 % (20.5-60.0); Mean Corpuscular Hemoglobin 31.2 pg (25.9-34.0); Mean Corpuscular Volume 91.7 fL (80.0-94.0); Monocytes Absolute Auto 0.4 10^3/uL (0.3-0.8); Monocytes Percent Auto 6.3 % (1.7-12.0); Neutrophils Absolute Auto 4.2 10^3/uL (1.4-6.5); Neutrophils Percent Auto 66.5 % (43.0-75.0); Platelet Count 97 10^3/uL (150-450); Red Blood Count 3.75 10^6/uL (4.70-6.10); Red Cell Distribution Width 12.9 % (11.0-15.0); White Blood Count 6.3 10^3/uL (4.0-11.0)
--- NOTE | 2023-08-17 20:30 | ECG_ITS ---
The 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
[2023-08-17 20:37] LABS: Anion Gap 10.1; BUN Creatinine Ratio 6.2; Calcium 8.7 mg/dL (8.5-10.1); Carbon Dioxide 27.8 mmol/L (21.0-32.0); Chloride 96 mmol/L (98-107); Estimated GFR (African America 13 (>=60); Estimated GFR (Non-African Ame 11 (>=60); Glucose 149 mg/dL (74-106); Potassium 3.9 mmol/L (3.5-5.1); Sodium 130 mmol/L (136-145)
[2023-08-17 20:38] LABS: Troponin I High Sensitivity 48.5 pg/mL (4.0-76.1)
[2023-08-17] MEDS: NITROGLYCERIN 0.4 MG BOTTLE PO (20:39)
--- NOTE | 2023-08-17 21:02 | PC.NURSE ---
Minimal relief after [address] aware orders received
[2023-08-17] MEDS: MORPHINE SULFATE 4 MG/ML VIAL IV (21:09)
[2023-08-17] MEDS: HYDRALAZINE HCL 20 MG/ML VIAL 10 MG IVP (22:31)
--- NOTE | 2023-08-17 22:40 | PC.NURSE ---
20:44 2nd Nitro given pain 6/10 B/P 178/97 HR 68. 20:49 3rdNitro given B/P 200/104 pain 6/7 Dr aware orders received.
[2023-08-17 23:03] LABS: Troponin I High Sensitivity 48.5 pg/mL (4.0-76.1)
[2023-08-18 00:54] VITALS: BP 145/73; PULSE 59; RESP 14; O2SAT 98
[2023-08-18 01:29] LABS: Troponin I High Sensitivity 55.3 pg/mL (4.0-76.1)
[2023-08-18 02:37] VITALS: BP 132/70; PULSE 68; RESP 12; O2SAT 98
[2023-08-18 04:17] VITALS: BP 110/57; PULSE 63; RESP 12; TEMP 36.6; O2SAT 96
== END 2023-08-18 04:15 | disposition short-term general hospital (02) ==
PROVIDERS: Emergency Provider Emergency Medicine; PCP Internal Medicine
DX: R07.9 Chest pain, unspecified (principal); I25.10 Atherosclerotic heart disease of native coronary artery without angina pectoris; Z95.5 Presence of coronary angioplasty implant and graft; Z79.82 Long term (current) use of aspirin; Z79.899 Other long term (current) drug therapy; Z79.4 Long term (current) use of insulin; F17.200 Nicotine dependence, unspecified, uncomplicated; Z99.2 Dependence on renal dialysis
CPT/HCPCS: 36415; 71045; 80048; 84484; 85025; 93005; 96374; 96375; 99285

== ENCOUNTER 2023-10-15 13:59 | Outpatient (OUT) | payer MEDICARE, MEDICAID, SELFPAY ==
--- NOTE | 2023-10-15 14:06 | MR_ITS ---
The [place] [id number] Patient Name: VIKTORIYA TAMAYO MRN: [id number] date: 1985 Sex: M Assigned Patient Location: MRI Current Patient Location: Accession/Order Number: [id number] Exam Date: 10/15/2023 14:30 Report Date: 10/16/2023 00:00 At the request of: JEANNETTE Dinero APLARIAN Procedure: MR shoulder LT wo con EXAM: MR shoulder LT wo con HISTORY: Internal Derangement Of Left Shoulder M24.812 COMPARISON: None. TECHNIQUE: MRI images obtained with multiple sequences. Noncontrast MRI of the left shoulder. FINDINGS: Normal alignment of the acromioclavicular joint. Undersurface of the acromion process is flat. Mild subacromial subdeltoid bursal fluid, consistent with bursitis. Interstitial partial-thickness tearing of the distal supraspinatus tendon. Infraspinatus tendon is intact. Teres minor is intact. Subscapularis tendon is intact. Muscle bulk of the rotator cuff is preserved. Biceps tendon is intact and within the intertubercular groove. Degeneration of the superior labrum. No full-thickness chondral loss at the glenohumeral joint. MR/MR shoulder LT wo con IMPRESSION: 1. Interstitial partial-thickness tearing of the distal supraspinatus tendon. No full-thickness rotator cuff tear. 2. Subacromial subdeltoid bursal fluid, consistent with bursitis. Electronically authenticated by: DAYDAY CARRENO Date: 10/16/2023 00:00
--- NOTE | 2023-10-15 14:52 | CT_ITS ---
[address] [address] Patient Name: VIKTORIYA TAMAYO MRN: [id number] date: 1985 Sex: M Assigned Patient Location: MRI Current Patient Location: MRI Accession/Order Number: [id number] Exam Date: 10/15/2023 15:10 Report Date: 10/15/2023 15:39 At the request of: NON-STAFF PHYSICIAN Procedure: CT abdomen pelvis wo con EXAMINATION: CT abdomen pelvis wo con HISTORY: Nausea And Vomiting, Constipation, Abdominal Pain COMPARISON: 04/02/2023 TECHNIQUE: Axial, Coronal, and Sagittal images were created without IV contrast. Dose reduction techniques were achieved by using automated exposure control and/or adjustment of mA and/or kV according to patient size and/or use of iterative reconstruction technique. FINDINGS: LUNG BASES: No visible pulmonary or pleural disease. LIVER: No enlargement, atrophy, abnormal density, or significant focal lesion. BILIARY: No dilatation or calcification. PANCREAS: No lesion, fluid collection, ductal dilatation, or atrophy. SPLEEN: No enlargement or focal lesion. ADRENALS: No mass or enlargement. KIDNEYS: No mass, obstruction, or calcification. BOWEL/MESENTERY: Normal to moderate amount of stool identified in the ascending and transverse colon. Overall nonobstructive bowel gas pattern. AORTA/VASCULAR: No aortic aneurysm. Moderate diffuse atherosclerosis, age advanced RETROPERITONEUM: No mass or adenopathy. LYMPH NODES: No adenopathy. URINARY BLADDER: No visible focal wall thickening, lesion, or calculus. PELVIC ORGANS: No visible mass. Pelvic organs appropriate for patient age. ABDOMINAL WALL: No mass or hernia. BONES: No bony lesion or fracture. OTHER: Limited noncontrast exam with poor soft tissue differentiation and lack of intraperitoneal fat. CT/CT abdomen pelvis wo con IMPRESSION: Moderate stool in the right and transverse colon with a nonobstructive bowel gas pattern Age advanced atherosclerosis Electronically authenticated by: JEREL MEJIA Date: 10/15/2023 15:39
== END 2023-10-15 14:00 | disposition home or self-care (01) ==
PROVIDERS: PCP Internal Medicine; Visit Provider Nurse Practitioner Family
DX: M24.812 Other specific joint derangements of left shoulder, not elsewhere classified (principal); R11.2 Nausea with vomiting, unspecified; K59.00 Constipation, unspecified; R10.9 Unspecified abdominal pain
CPT/HCPCS: 73221; 74176

== ENCOUNTER 2023-11-12 09:56 | Outpatient (OUT) | payer MEDICARE, MEDICAID, SELFPAY ==
--- NOTE | 2023-11-12 10:00 | XR_ITS ---
The [address] [address] Patient Name: VIKTORIYA TAMAYO MRN: [id number] date: 1985 Sex: M Assigned Patient Location: RAD Current Patient Location: [facility] Accession/Order Number: [id number] Exam Date: 11/12/2023 10:00 Report Date: 11/12/2023 13:33 At the request of: EUSEBIO OLIVARES Procedure: XR chest 2V EXAMINATION: XR chest 2V HISTORY: cough R05.9 COMPARISON: 08/17/2023 TECHNIQUE: PA and lateral FINDINGS: LUNGS: No significant pulmonary parenchymal abnormalities. VASCULATURE: No increased pulmonary vasculature. PLEURA: No pneumothorax, effusion, or pleural thickening. CARDIAC: No cardiomegaly or cardiac silhouette abnormality. MEDIASTINUM: No visible mass or adenopathy. BONES: No fracture or visible bone lesion. OTHER: Negative. XR/XR chest 2V IMPRESSION: No acute cardiopulmonary process Electronically authenticated by: JEREL MEJIA Date: 11/12/2023 13:33
== END 2023-11-12 09:57 | disposition home or self-care (01) ==
LOC: RAD 09:57
PROVIDERS: PCP Internal Medicine; Visit Provider Internal Medicine
DX: R05.9 Cough, unspecified (principal)
CPT/HCPCS: 71046

== ENCOUNTER 2024-01-13 07:25 | Outpatient (REF) | payer MEDICARE, MEDICAID, SELFPAY ==
--- OUTSIDE RECORDS SUMMARY | 2024-01-13 07:33 | XMS_ITS | CCD ---
Demographics Address [address] [place] [address] Preferred Language en Marital Status Church Affiliation Unknown Race White Ethnic Group Not or Lati no Author Organization [facility] ion Partnership [facility] Care Team Providers Care Sole [place] Name Role Phone Rolando Olivares Unavailable Unavailable Unavailable Angel Mejía Unavailable DO Rolando Olivares Primary Care Provider [phone] DO Denilson Gomez Attending Provider MD Angel Mejía Attending Provider DO Rolando Olivares Attending Provider Nancy Haas Unavailable DO Rolando Olivares Primary Care Provider MD Angel Mejía Referring Provider [phone] DO Hector Mann Emergency Provider MD Angel Mejía Attending Provider MD Jorje Small Attending Provider MD Jorje Small Attending Provider MD Jorje Small Attending Provider DO Romain Roy Emergency Provider EricasdMD Govind Fuentes Emergency Provider DO Rolando Olivares Primary Care Provider MD Angel Mejía Referring Provider DO Yobani Hansen Emergency Provider DO Rolando Olivares Primary Care Provider [phone] DO Hector Mann Emergency Provider MD Angel Mejía Attending Provider [phone] MD Jorje Small Attending Provider DO Romain Roy Emergency Provider Fernandoangella MD Angel Seymour Referring Provider MD Govind Anderson Emergency Provider DO Yobani Hansen Emergency Provider DO Rolando Olivares Primary Care Provider DO Zeus Bradley Emergency Provider [phone] Rolando Olivares DO Primary Care Provider BRITTNI PAGAN Attending Unavailable ROLANDO OLIVARES Primary Care Unavailable CLARKE ALLEN Attending Unavailable ROLANDO OLIVARES Primary Care Unavailable DO Rolando Olivares Primary Care Provider MD Jorje Small Attending Provider MD Angel Mejía Attending Provider DO Denilson Gomez Attending Provider MD Cipriano Stiles Other Provider MD Tenzin Ortiz Jr Emergency Provider DO Isidoro Mesa Admit Provider DO Isidoro Mesa Attending Provider MD Nancy Haas Other Provider MD Law Cano Attending Provider DO Rolando Olivares Primary Care Provider [phone] ROLANDO OLIVARES Primary Care Physician [phone] DO Rolando Olivares Primary Care Provider MD Angel Mejaí Referring Provider MD Jorje Small Attending Provider [phone] ADILSON VO Primary Care Unavailable MARSHALL, DR KAPLAN Attending Unavailable MARSHALL, DR KAPLAN Admitting Unavailable MARSHALL, DR KAPLAN Attending Unavailable MRASHALL, DR KAPLAN Consulting Unavailable MARSHALL, DR KAPLAN Admitting Unavailable TAVO, DR ADILSON Arreguin Primary Care Unavailable BOWLEGS, DR JEREL Miller Consulting Unavailable ANGEL MEJÍA Admitting Unavailable VO, DR ADILSON Arreguin Primary Care Unavailable KYM, ANGEL Attending Unavailable MD Jorje Small Attending Provider MD Romain Mendoza Attending Provider [phone] DO Rolando Olivares Primary Care Provider DO Rolando Olivares Primary Care Provider MD Angel Mejía Attending Provider DO Robyn Gr Emergency Provider DO Evert Renae Admit Provider DO Evert Renae Attending Provider TERE Benítez Other Provider Unavailable DO Denilson Gomez Other Provider MD Nery Najera Other Provider MD Elder Stewart Other Provider MD Iraida Byrd Other Provider MD Gerald Gross Other Provider JOSH Bob Other Provider MD Janine Gonzalez Other Provider MD Renard [facility] Namel Other Provider MD Avani Younger Other Provider [place] [facility] Christy Almaraz Other Provider MD Jackie Ross Other Provider MD Ross Catherine Attending Provider [phone] DO Rolando Olivares Primary Care Provider Romain Mendoza Unavailable Unavailable Unavailable Rolando Olivares Unavailable Zina Childs Unavailable DO Rolando Olivares Primary Care Provider MD Angel Mejía Attending Provider MD Jorje Small Attending Provider MD Angel Mejía Referring Provider MD Romain Mendoza Attending Provider [phone] DO Robyn Gr Emergency Provider DO Evert Renae Admit Provider TERE Benítez Other Provider Unavailable DO Denilson Gomez Other Provider MD Nery Najera Other Provider MD Elder Stewart Other Provider MD Iraida Byrd Other Provider MD Gerald Gross Other Provider JOSH Bob Other Provider MD Janine Gonzalez Other Provider MD Mathew Glynn Najeeb Other Provider MD Avani Younger Other Provider [place] [facility] Christy Alamraz Other Provider MD Jackie Ross Other Provider MD Ross Catherine Attending Provider [phone] DO Denilson Gomez Attending Provider [phone] DAVION Childs Attending Provider DO Rolando Olivares Primary Care Provider MD Angel Mejía Attending Provider MD Angel Mejía Other Provider MD Romain Mendoza Attending Provider [phone] JOSH Grijalva Emergency Provider DO Rolando Olivares [...] Provider MD Avani Younger Other Provider [place] [facility] Christy Almaraz Other Provider [phone] MD Jackie Ross Other Provider [phone] MD Justino Boss Attending Provider Dr. Rolando Olivares [facility] Guzman Gomez, Dr. Elder López Referring Fernando ilmartina Olivares, Dr. Rolando La Primary [facility] [place] Guzman Gomez, Dr. Elder López Attending Fernando ilmartina Gomez, Dr. Elder López Attending Fernando Olivares, Dr. Rolando La [facility] Guzman Gomez, Dr. Elder López Referring Ericava ilmartina Olivares, Dr. Rolando La Primary [facility] [place] Guzman Gomez, Dr. Elder López Attending Ericava ilmartina Gomez, Dr. Elder López Referring Ericava ilmartina Olivares, Dr. Rolando La [facility] Guzman Gomez, Dr. Elder López Referring Fernando ilmartina Gomez, Dr. Elder López Attending Fernando ilmartina Gomez, Dr. Elder López Attending Fernando ilmartina Olivares, Dr. Rolando La [facility] Guzman Olivares, Dr. Rolando La [facility] Guzman Gomez, Dr. Elder López Attending Fernando Olivares, Dr. Rolando La [facility] Guzman Olivares, Dr. Rolando La [facility] DO Rolando Meadows Primary Care Provider MD Angel Mejía Attending Provider DO Denilson Gomez Attending Provider MD Angel Mejía Other Provider MD Jorje Small Attending Provider [phone] DO Rolando Olivares Primary Care Provider MD Romain Mendoza Attending Provider MD Jorje Small Attending Provider DO Rolando Olivares Primary Care Provider DO Rolando Olivares Primary Care Provider MD Angel Mejía Referring Provider MD Romain Mendoza Attending Provider DO Rolando Olivares Primary Care Provider MD Romain Mendoza Attending Provider DO Rolando Olivares Primary Care Provider MD Romain Mendoza Attending Provider MD Law Cano Admit Provider DO Jorge Mederos Attending Provider MD Elder Stewartrick Other Provider MD Bryce Coy Other Provider Rolando Olivares MD Primary Care Provider DO Rolando Olivares Primary Care Provider MD Romain Mendoza Attending Provider MD Angel Mejía Referring Provider JOSH Forte Attending Provider Ari [facility]av[facility] E Emergency Provider [phone] DO Rolando Olivares Primary Care Provider MD Law Cano Admit Provider Mederos, DO Jorge Corral Attending Provider MD Elder Stewart Other Provider MD Brcye Coy Other Provider MD Romain Mendoza Attending Provider [phone] MD Angel Mejía Referring Provider JOSH Forte Attending Provider Ari [facility] Kavya E Emergency Provider [phone] DO Rolando Olivares Primary Care Provider [phone] Robyn GUERIN Attending Unavailable Rolando Olivares DO E Primary Care Provider Elder Gomez DO Unavailable [phone] ELDER GOMEZ Attending Unavailable MARSHALL ROLANDO E Primary Care Unavailable DO Rolando Olivares Primary Care Provider MD Romain Mendoza Attending Provider MD Angel Mejía Attending Provider DAVID BERG Attending Unavailable ANGELINA OLIVER Attending Unavailable APLINGNELIDA Attending Unavailable APLINGNELIDA Referring Unavailable ANGELINA OLIVER Attending Unavailable ANGELINA OLIVER Attending Unavailable ANGELINA OLIVER Attending Unavailable APLINGNELIDA Attending Unavailable ANGELINA OLIVER Attending Unavailable DAVID BERG Attending Unavailable BRITTNI BEAN Attending Unavailable DAVID BERG Attending Unavailable Rjei, Romain Corral Attending Unavailabl e Langenberg, Romain T Admitting Unavailabl e Ball, Rolando Primary Care Unavailable [...] Unavailabl e Ball, Rolando Primary Care Unavailable Elder Stewart Consulting Unavail able Ball, Rolando Primary Care Unavailable Law Cano Admitting Unavailable Jorge Mederos Attending Unavailable Bryce Coy Consulting Unavailable Reji, Roamin Corral Attending Unavailabl e Langenberg, Romain T Admitting Unavailabl e Ball, Rolando Primary Care Unavailable Ball, Rolando Primary Care Unavailable Bullimore, Kavya E Attending Unavailable Bullimore, Kavya E Admitting Unavailable Kym, Angel Attending Unavailable Kym, Angel Admitting Unavailable Ball, Rolando Primary Care Unavailable Ball, Rolando Primary Care Unavailable Jason, Denilson López Attending Unavailable Jason, Denilson López Admitting Unavailable Ball, Rolando Primary Care Unavailable Jason, Denilson López Attending Unavailable Jason, Denilson López Admitting Unavailable Kym, Angel Referring Unavailable Demboske, Va Camilo Attending Unavail able Demboske, Va Camilo Admitting Unavail able Ball, Rolando Primary Care Unavailable Kym, Angel Consulting Unavailable Reji, Romain T Admitting Unavailabl e Reji, Romain T Attending Unavailabl e Ball, Rolando Primary Care Unavailable Langenberg, Romain T Admitting Unavailabl e Langenberg, Romain T Attending Unavailabl e Ball, Rolando Primary Care Unavailable Allergies Allergy Classification Reported Allergen(s) Allergy Type Date of Onset Reaction(s) Facility (3 sources) patient allergy list reviewed by nurse or physicia Propensity to adverse reactions 9 Comment:Done [employer] Other (1 source) No Known Medication Allergies; Translations: [No Known Medication Allergies] Propensity to adverse reactions (disorder) [facility] Repository Medications Current Medications Medication Drug Class(es) Dates Sig (Normalized) Sig (Original) acetaZOLAMIDE 250 mg oral tablet (2 sources) Carbonic Anhydrase Inhibitor take 1 tablet by mouth every twenty-four hours acetaZOLAMIDE 250 MG 1 tablet Orally Once a day Active amLODIPine 2.5 mg oral tablet (20 sources) Dihydropyridine Calcium Channel Brittany Start: 08-18-2023 take 2.5 mg by mouth once daily Amlodipine Active 2.5 MG PO Daily August 18, 2023 1:00am Start: 08-21-2021 End: 11-18-2021 take 5 mg by mouth once daily Amlodipine Discontinued 5 MG PO Daily September 11, 2021 1:00am November 18, 2021 11:22am amLODIPine Besyl ate Active aspirin 81 mg chewable tablet (20 sources) Platelet Aggregation Inhibitor, Nonsteroidal Anti-inflammatory Drug Start: 11-17-2021 End: 09-10-2022 take 1 tablet by mouth once daily in the morning Aspirin (Children's Aspirin) 81 mg tablet,chewable Active 81 MG PO Every morning September 10, 2022 5:49pm take 1 tablet by mouth once maxim [...] Atorvastatin Active 80 MG PO Every evening 30 November 17, 2021 12:00am Start: 08-08-2021 End: 11-18-2021 take 40 mg by mouth once daily Atorvastatin Discontinu ed 40 MG PO Daily September 11, 2021 1:00am November 18, 2021 11:22am Basaglar KwramaPen (2 sources) Start: 08-29-2022 Basaglar KwikP en SubCutaneous, Daily Start Date: 08/29/22 Status: Ordered Blood Glucose Monitoring Suppl (Accu-Chek Guide Me) w/Device kit (3 sources) Start: 08-27-2023 Blood Glucose Monitoring Suppl (Accu-Chek Guide Me) w/Device kit USE DIRECTED 0 08/27/2023 Active calcium acetate 667 mg oral tablet (20 sources) Start: 11-13-2023 take 1334 mg by mouth three times daily Calcium Acetate Active 1334 MG PO Three times daily November 13, 2023 2:59pm Start: 03-27-2023 take 2 capsules by m outh three times daily at mealtime calcium acetate (Phoslo) 667 MG capsule TAKE 2 CAPSULES BY MOUTH 3 TIMES DAILY WITH EACH MEAL 0 03/27/2023 Active Start: 03-26-2023 End: 11-13-2023 Calcium Acetate Discontinued 667 MG PO As Directed March 26, 2023 12:00am November 13, 2023 3:08pm take 2 tablets by mo [facility] every eight hours Calcium Acetate (Phos Binder) 667 MG 2 tablets with meals Orally Three times a day Active calcium carbonate 500 mg chewable tablet (20 sources) Start: 10-16-2022 take 1 tablet by mouth every eight hours Tums 500 MG 1 tablet Orally tid for 90 days Sep, Active take 2 tablets by mo ut three times daily at mealtime Tums 500 MG 2 tablet Orally TID with meal for 90 days Active carvedilol 25 mg oral tablet (20 sources) alpha-Adrenergic Brittany, beta-Adrenergic Brittany Start: 01-09-2023 take 1 tablet by mouth twice daily at mealtime Carvedilol (Coreg) 25 mg tablet Active 25 MG PO Twice daily January 09, 2023 12:00am must administer with a meal/food Start: 11-13-2021 End: 01-09-2023 take 12.5 mg by mouth twice daily Carvedilol Discontinued 12.5 MG PO Twice daily November 13, 2021 12:00am January 09, 2023 5:58pm take 1 tablet by [facility] every twenty-four hours Carvedilol 12.5 MG 1 tablet with food Orally ONCE A DAY Active cinnamon and chromium (2 sources) Start: 08-10-2019 cinnamon and chromium cinnamon and chromium Start Date: 08/10/19 Status: Ordered clopidogrel 75 mg oral tablet (20 sources) P2Y12 Platelet Inhibitor Start: 11-17-2021 End: 09-10-2022 take 1 tablet by mouth once daily in the morning Clopidogrel (Plavix) 75 mg tablet Active 75 MG PO Every morning September 10, 2022 5:49pm Continuous Blood Gluc Sensor (Dexcom G6 Sensor) misc (3 sources) Start: 08-23-2023 Continuous Blood Gluc Sensor (Dexcom G6 Sensor) misc CHANGE SENSOR EVERY 10 DAYS*E10.65* 0 08/23/2023 Active Continuous Blood Gluc Transmit (Dexcom G6 transmitter) misc (3 sources) Start: 09-07-2023 Continuous Blood Gluc Transmit (Dexcom G6 transmitter) misc CHANGE EVERY 90 DAYS DX E10.65 0 09/07/2023 Active CoQ10 (2 sources) Start: 08-10-2019 take 1 mg by mouth once daily CoQ10 mg, Oral, Daily, Refills(s) 0 Start Date: 08/10/19 Status: Ordered Dexcom G6 Transmitter - (4 sources) Dexcom G6 Transmitter - CHANGE EVERY 90 DAYS. ICD 10 E10.65 for 90 Active diclofenac sodium 0.01 mg/mg topical gel (3 sources) Nonsteroidal Anti-inflammatory Drug Start: 09-09-2023 diclofenac sodium (Voltaren) 1 % gel Indications: Left shoulder pain, unspecified chronicity , Impingement of left shoulder Apply 2 g topically in the morning and 2 g in the evening and 2 g before bedtime. 50 g 2 09/09/2023 Active doxycycline hyclate 100 mg oral capsule (1 source) Tetracycline-class Drug Start: 09-03-2022 take 1 capsule by mouth twice daily doxycycline hyclate 100 mg Cap 100 mg = 1 cap(s), Oral, BID, # 14 cap(s), Refills(s) 0, Pharmacy: [facility]/pharmacy #[id number], 182, cm, 08/29/22 10:31:00 EST, Height/Length Dosing, 76.2, kg, 08/29/22 10:31:00 EST, Weight Dosing Start Date: 09/03/22 Status: Ordered Epoetin Alexus (1 source) Erythropoiesis-sti mulating Agent inject 8000 [IU] by subcutaneous injection three times weekly epoetin alexus (EPOGEN INJ) Inject 8,000 Units under the skin 3 times a week. Active epoetin alexus-epbx 62624 UNT/ML Injectable Solution [Retacrit] (20 sources) Retacrit 71965 U NIT/ML as directed Injection ONCE EVERY 4 WEEKS Not-Taking Retacrit 68711 U NIT/ML as directed Injection ONCE EVERY 4 WEEKS Active famotidine 20 mg oral tablet (20 sources) Histamine-2 Receptor Antagonist Start: 11-13-2021 take 40 mg by mouth once daily at bedtime Famotidine Active 40 MG PO Daily at bedtime November 13, 2021 12:00am Start: 11-13-2021 take 1 mg by mouth twice daily famotidine 20 mg Tab mg tab(s), Oral, BID Start Date: 08/29/22 Status: Ordered take 1 tablet by lang th once daily at bedtime famotidine (Pepcid) 20 mg tablet Take 1 tablet (20 mg) by mouth once daily at bedtime. Active take 2 tablets by mo [facility] every twenty-four hours Famotidine 20 MG 2 tablets at bedtime as needed Orally Once a day Active furosemide 40 mg oral tablet (20 sources) Loop Diuretic Start: 08-29-[address] art Date: 08/29/22 Status: Ordered Start: 11-17-2021 End: 09-10-2022 take 40 mg by mouth once daily in the morning Furosemide Active 40 MG PO Every morning September 10, 2022 5:49pm take 2 tablets by [facility] every twenty-four hours Furosemide 40 MG 2 tablet Orally Once a day for 90 day(s) Active 2 ml heparin sodium, porcine 1000 unt/ml injection (1 source) Unfractionated Heparin, Anti-coagulant heparin sodium,porcine/PF (heparin, porcine, PF,) 1,000 unit/mL solution Infuse 1 mL (1,000 Units) into a venous catheter 3 times a week. Active hyoscyamine sulfate 0.125 mg oral tablet (3 sources) Start: 2022 take 1 tablet by mouth every six hours as needed for pain hyoscyamine (Anaspaz,Levsin) 0.125 MG tablet TAKE 1 TABLET BY MOUTH EVERY 6 HOURS NEEDED FOR ABDOMINAL PAIN 0 07/09/2023 Active Insulin Glargine (Lantus U-100 Insulin) 100 unit/mL solution (3 sources) Start: 2023 inject 15 [IU] by subcutaneous injection once daily Insulin Glargine (Lantus U-100 Insulin) 100 unit/mL solution Active 15 UNIT SUBCUT Daily November 26, 2023 12:00am insulin lispro 100 unt/ml injectable solution (20 sources) Insulin Analog Start: 2021 Insulin Lispro (Humalog U-100 Insulin) 100 unit/mL Solution Active 1 sliding scale dose SUBCUT Use as Directed May 28, 2022 11:00pm Start: 05-24-2022 HumaLOG KwikPe n 100 UNIT/ML Subcutaneous Solution Pen- injector USE DIRECTED Quantity: 0 Refills: 0 Ordered: 24-May-2022 DO Start : 24-May-2022 Active HumaLOG KwikPen Insulin 100 unit/mL injection Inject under the skin. Active HumaLOG 100 UNIT /ML as directed Injection SLIDING SCALE NEEDED Active HumaLOG KwikPen 100 UNIT/ML 1 (one) mL 2-10u SC AC based on insulin sliding scale, Insulin Sliding Scale before meals: BS 300 10u Active HumaLOG 100 UNIT /ML as directed Injection SLIDING SCALE NEEDED Active Insulin Lispro (Humalog Kwikpen Insulin) 100 unit/mL insulin pen (4 sources) Start: 11-13-2023 Insulin Lispro (Humalog Kwikpen Insulin) 100 unit/mL insulin pen Active 1 sliding scale dose SUBCUT Use as Directed November 13, 2023 12:00am 24 hr isosorbide mononitrate 60 mg extended release oral tablet (20 sources) Nitrate Vasodilator Start: 08-09-2023 take 1 tablet by mouth twice daily isosorbide mononitrate ER (Imdur) 60 mg 24 hr tablet Take 1 tablet (60 mg) by mouth 2 times a day. 08/09/2023 Active Start: 02-07-2023 take 1 tablet by lang th twice daily Isosorbide Mononitrate ER 60 MG Oral Tablet Extended Release 24 Hour TAKE 1 TABLET BY MOUTH TWICE DAILY Quantity: 180 Refills: 3 Ordered: 07-Feb-2023 Elder Gomez DO Start : 07-Feb-2023 Active Start: 11-12-2022 End: 01-31-2023 take 60 mg by mouth twice daily Isosorbide Mononitrate Discontinued 60 MG PO Twice daily 120 January 09, 2023 12:00am January 31, 2023 9:18am Start: 10-03-2022 End: 11-12-2022 take 60 mg by mouth once daily at bedtime Isosorbide Mononitrate Active 60 MG PO Daily at bedtime November 12, 2022 9:50am Start: 07-05-2022 End: 10-03-2022 take 30 mg by mouth once daily at bedtime Isosorbide Mononitrate Discontinued 30 MG PO Daily at bedtime July 09, 2022 1:00am October 03, 2022 7:01pm Isosorbide Dinitrate (2 sources) Nitrate Vasodilator Start: 08-29-2022 isosorbide dinitrate Oral Start Date: 08/29/22 Status: Ordered ketorolac tromethamine 5 mg/ml ophthalmic solution (3 sources) Nonsteroidal Anti-inflammatory Drug, Cyclooxygenase Inhibitor Start: 09-05-2023 End: 10-05-2023 take 1 drop(s) into the eye(s) in the morning ketorolac (Acular) 0.5 % ophthalmic solution Indications: Cataract of left eye with neovascularization Administer 1 drop into affected eye(s) in the morning and 1 drop before bedtime. 5 mL 1 09/05/2023 10/05/2023 Active loratadine 10 mg oral tablet (20 sources) Start: 01-03-2023 Loratadine Active 10 MG PO As Directed January 09, 2023 12:00am Start: 01-03-2023 nitroglycerin 0.4 mg sublingual tablet (20 sources) Nitrate Vasodilator Start: 11-17-2021 Nitroglyce rin Active 0.4 MG SUBLINGUAL Every 5 minutes x 3 doses November 17, 2021 12:00am Nitroglycerin 0. 4 MG as directed Sublingual Active ofloxacin 3 mg/ml ophthalmic solution (3 sources) Quinolone Antimicrobial Start: 07-23-2023 take 1 drop(s) into the eye(s) four times daily ofloxacin (Ocuflox) 0.3 % ophthalmic solution INSTILL 1 DROP INTO RIGHT EYE 4 TIMES A DAY DIRECTED 0 07/23/2023 Active omeprazole 40 mg delayed release oral capsule (20 sources) Proton Pump Inhibitor Start: 05-09-2022 take 40 mg by mouth once daily in the morning Omeprazole Active 40 MG PO Every morning May 09, 2022 12:00am take 1 capsule by mouth once anupama ly omeprazole (PriLOSEC) [address] capsule Take 1 capsule (20 mg) by mouth once daily. Active ondansetron 4 mg disintegrating oral tablet (20 sources) Serotonin-3 Receptor Antagonist Start: 07-09-2023 ondansetron ODT (Zofran-ODT) 4 MG disintegrating tablet DISSOLVE 1 TABLET ON THE TONGUE EVERY 6 HOURS NEEDED FOR NAUSEA/ VOMITING 0 07/09/2023 Active Start: 09-19-2021 End: 09-30-2021 take 4 mg by mouth twice daily Ondansetron Hcl Discont inued 4 MG PO Twice daily 8 September 19, 2021 1:00am October 01, 2021 12:14am Start: 09-11-2021 End: 09-30-2021 take 4 mg by mouth every six hours Ondansetron Discontinued 4 MG PO Q6H September 11, 2021 1:00am October 01, 2021 12:14am Comment on above: Take 4 mg by mouth e very 6 hours as needed. One Touch Glucometer (4 sources) Start: One Touch Glucometer use as directed for 365 days Ultra meter Aug, Active oxyCODONE hydrochloride 5 mg oral tablet (5 sources) Opioid Agonist Start: take 5 mg by mouth twice daily Oxycodone Active 5 MG PO Twice daily 07 06October 17, 2023 paricalcitol 0.001 mg oral capsule (1 source) Vitamin D3 Analog take 3 capsules by mouth three times weekly paricalcitol (Zemplar) 1 mcg capsule Take 3 capsules (3 mcg) by mouth 3 times a week. Active polyethylene glycol 3350 859249 mg / potassium chloride 2970 mg / sodium bicarbonate 6740 mg / sodium chloride 5860 mg / sodium sulfate 95001 mg powder for oral solution (3 sources) Osmotic Laxative Start: GaviLyte-G 236 g solution TAKE 240 ML EVERY 10 MINUTES UNTIL FECAL EFFLUENT IS CLEAR 0 07/09/2023 Active Prednisolon-Moxiflox- Bromfenac 1-0.5-0.075 % solution (3 sources) Start: Jzrhxovuosg-Jyzqnprs-Mwxq fenac 1-0.5-0.075 % solution Indications: Cataract of left eye with neovascularization Administer 1 drop into affected eye(s) in the morning and 1 drop at noon and 1 drop in the evening and 1 drop before bedtime. 10 mL 1 09/05/2023 Active retacrit 95655 unit/ml solution (5 sources) Retacrit 71512 U NIT/ML as directed Injection ONCE EVERY 4 WEEKS Active sertraline 100 mg oral tablet (15 sources) Serotonin Reuptake Inhibitor Start: take 1 tablet by mouth once daily Sertraline (Zoloft) 100 mg tablet Active 100 MG PO Daily October 17, 2023 1:00am Start: 07-16-2023 sertraline (Zo loft) 100 MG tablet 5 ml sodium ferric gluconate complex 12.5 mg/ml injection (1 source) ferric gluconate (Ferrlecit) 62.5 mg/5 mL injection Infuse 5 mL (62.5 mg) into a venous catheter every other day. Active sodium zirconium cyclosilicate 94269 mg powder for oral suspension (7 sources) Start: 11-12-2022 take 1 dose by mouth once daily Lokelma 10 GM 1 packet dissolved in water Orally Once a day for 30 day(s) Oct, Active Vitamin D (2 sources) Start: 08-29-2022 Vitamin D International_Unit, Oral, qWeek Start Date: 08/29/22 Status: Ordered Completed/Discontinued Medications Medication Drug Class(es) Dates Sig (Normalized) Sig (Original) albuterol 0.83 mg/ml inhalation solution (14 sources) beta2-Adrenergic Agonist Start: 11-14-2023 End: 11-14-2023 take 1 puff(s) by inhalation every six hours Albuterol Sulfate Active 2 PUFF INHALATION Every 6 hours 8.5 November 14, 2023 3:16pm Start: 11-14-2023 End: 11-26-2023 take 2.5 mg by inhalation every four to six hours Albuterol Sulfate Discontinued 2.5 MG INHALATION EVERY 4-6 HOURS 180 November 14, 2023 3:16pm November 26, 2023 8:55am brimonidine tartrate 2 mg/ml ophthalmic solution (1 [...] MG PO Twice daily September 11, 2021 1:00am October 01, 2021 12:14am dorzolamide HCl/PF (DORZOLAMIDE, PF,) 2 % drop (2 sources) Start: 10-01-2021 take 1 drop(s) into the eye(s) three times daily dorzolamide HCl/PF (DORZOLAMIDE, PF,) 2 % drop Use 1 Drop in eyes three times daily. 10 mL 0 10/01/2021 Active Comment on above: Use 1 Drop in eyes t hree times daily. Epoetin Alexus-Epbx (20 sources) Start: 04-09-2022 End: 11-26-2023 inject 40049 [IU] by subcutaneous injection every month Epoetin Alexus-Epbx (Retacrit) 20,000 unit/mL solution Discontinued [id number] UNIT SUBCUT every month April 09, 2022 12:00am November 26, 2023 8:56am Start: 04-09-2022 inject [id number] [IU] by subcutaneous injection every month Epoetin Alexus-Epbx (Retacrit) 20,000 unit/mL solution Active [id number] UNIT SUBCUT every month April 08, 2022 11:00pm Start: 04-09-2022 inject [id number] [IU] by subcutaneous injection every month Epoetin Alexus-Epbx (Retacrit) 20,000 unit/mL solution Active 18442 UNIT SUBCUT every month April 09, 2022 12:00am Epoetin Alexus-Epbx (4 sources) Start: 11-13-2023 End: 11-26-2023 Epoetin Alexus-Epbx (Retacrit) 20,000 unit/2 mL solution Discontinued [id number] UNIT SUBCUT .q4wks November 13, 2023 12:00am November 26, 2023 8:56am Start: 11-13-2023 Epoetin Alexus-E pbx (Retacrit) 20,000 unit/2 mL solution Active 49709 UNIT SUBCUT .q4wks November 13, 2023 12:00am Ergocalciferol (20 sources) Provitamin D2 Compound Start: 11-13-2023 End: 11-26-2023 Ergocalciferol (Vitamin D2) Discontinued UNIT PO November 13, 2023 12:00am November 26, 2023 8:56am Start: 11-13-2023 Ergocalciferol (Vitamin D2) Active UNIT PO November 13, 2023 12:00am Start: 07-02-2023 take 1 capsule by mo uth every week ergocalciferol (Vitamin D2) 1.25 MG (27627 UT) capsule Take 1 capsule by mouth 1 (one) time per week. 0 07/02/2023 Active Start: 04-09-2022 End: 03-26-2023 take 1250 ug by mouth every week Ergocalciferol (Vitamin D2) Discontinued 1250 MCG PO every week April 09, 2022 12:00am March 26, 2023 8:36am Start: 04-09-2022 take 1250 ug by mout h every week Ergocalciferol (Vitamin D2) Active 1250 MCG PO every week April 09, 2022 12:00am Start: 03-14-2022 take 1 capsule by mo uth every week Ergocalciferol 1.25 MG (71966 UT) 1 capsule Orally Q week for 90 day(s) Feb, Active take 1 capsule by mo uth every week Vitamin D (Ergocalciferol) 1.25 MG (01556 UT) TAKE 1 CAPSULE BY MOUTH ONCE A WEEK for 84 Active escitalopram 10 mg oral tablet (20 sources) Serotonin Reuptake Inhibitor Start: 11-13-2021 End: 11-13-2021 Escitalopram Oxalate Discontinued MG TABLET November 13, 2021 12:00am November 13, 2021 1:15am Start: 09-29-2021 End: 10-17-2023 take 10 mg by mouth once daily at bedtime Escitalopram Oxalate Discontinued 10 MG PO Daily at bedtime November 13, 2021 12:00am October 17, 2023 10:18am fluconazole 150 mg oral tablet (20 sources) Azole Antifungal Start: 09-11-2021 End: 09-30-2021 take 1 tablet by mouth once Fluconazole (Diflucan) 150 mg tablet Discontinued 150 MG PO Once September 11, 2021 1:00am October 01, 2021 12:14am Take this medication on 09/14/2021 if you are still having burning with urination hydrALAZINE hydrochloride 50 mg oral tablet (20 sources) Arteriolar Vasodilator Start: 11-13-2023 End: 11-26-2023 take 50 mg by mouth three times daily Hydralazine Discontinued 50 MG PO Three times daily November 13, 2023 12:00am November 26, 2023 8:56am Start: 02-12-2023 take 50 mg by mouth once daily Hydralazine Active 50 MG PO Daily April 12, 2023 7:45am Start: 10-03-2022 End: 04-12-2023 take 50 mg by mouth three times daily Hydralazine Discontinued 50 MG PO Three times daily 90 October 03, 2022 1:00am April 12, 2023 7:45am Start: 08-29-2022 take 1 mg by mouth f our times daily hydrALAZINE 25 mg Tab mg tab(s), Oral, QID Start Date: 08/29/22 Status: Ordered Start: 11-18-2021 End: 10-03-2022 take 50 mg by mouth three times daily Hydralazine Discontinued 50 MG PO Three times daily 180 November 18, 2021 12:00am October 03, 2022 7:01pm take 1 tablet by lang th three times daily hydrALAZINE HCl - 25 MG Oral Tablet TAKE 1 TABLET 3 TIMES DAILY. Quantity: 0 Refills: 0 Ordered: 21-Nov-2021 DO Active 3 ml insulin glargine 100 unt/ml pen injector (20 sources) Insulin Analog Start: 04-12-2023 End: 11-13-2023 inject 10 [IU] by subcutaneous injection once daily Insulin Glargine (Lantus Solostar U-100 Insulin) 100 unit/mL (3 mL) insulin pen Discontinued 10 UNIT SUBCUT Daily April 12, 2023 12:00am November 13, 2023 3:01pm Start: 09-11-2021 insulin glargi ne (LANTUS SOLOSTAR, BASAGLAR KWIKPEN) 100 unit/mL (3 mL) Insulin Glargine (Basaglar Kwikpen U-100 Insulin) 100 unit/mL (3 mL) insulin pen Active 15 UNIT SUBCUT Daily September 11, 2021 10:23pm 0 09/11/2021 Active Start: 09-11-2021 End: 01-09-2023 Insulin Glargine (Basaglar K luiskpen U-100 Insulin) 100 unit/mL (3 mL) insulin pen Discontinued 12 UNIT SUBCUT Every morning September 11, 2021 1:00am January 09, 2023 2:53am Start: 09-11-2021 insulin glargi ne (LANTUS SOLOSTAR, [...] UNIT SUBCUT Daily September 11, 2021 10:23pm Insulin Lispro (Humalog U-100 Insulin) 100 unit/mL Solution (20 sources) Start: 05-29-2022 End: 11-13-2023 Insulin Lispro (Humalog U-100 Insulin) 100 unit/mL Solution Discontinued 1 sliding scale dose SUBCUT Use as Directed May 29, 2022 12:00am November 13, 2023 3:08pm 15 to 1 Start: 05-29-2022 Insulin Lispro [...] Use as Directed May 28, 2022 11:00pm Insulin Lispro (Humalog U-10 0 Insulin) 100 unit/mL solution (4 sources) Start: 11-13-2023 End: 11-26-2023 Insulin Lispro (Humalog U-10 0 Insulin) 100 unit/mL solution Discontinued 1 sliding scale dose SUBCUT Use as Directed November 13, 2023 3:01pm November 26, 2023 8:57am Start: 11-13-2023 Insulin Lispro (Humalog U-100 Insulin) 100 unit/mL solution Active 1 sliding scale dose SUBCUT Use as Directed November 13, 2023 3:01pm losartan potassium 25 mg oral tablet (20 sources) Angiotensin 2 Receptor Brittany Start: 11-12-2022 End: 01-09-2023 take 25 mg by mouth twice daily Losartan Discontinued 25 MG PO Twice daily November 12, 2022 12:00am January 09, 2023 2:54am Start: 08-29-2022 losartan Oral, Daily Start Date: 08/29/22 Status: Ordered Start: 08-08-2021 End: 06-03-2022 take 25 mg by mouth once daily Losartan Discontinued 2 5 MG PO Daily September 11, 2021 1:00am June 03, 2022 3:07pm 24 hr metFORMIN hydrochlorid e 500 mg extended release oral tablet (20 sources) Biguanide Start: 09-11-2021 metFORMIN ER ( GLUCOPHAGE XR) 500 mg 24 hr tablet Metformin Active 500 MG PO Twice daily September 11, 2021 10:23pm 0 09/11/2021 Active Start: 09-11-2021 End: 11-18-2021 take 500 mg by mouth twice daily Metformin Discontinued 500 MG PO Twice daily September 11, 2021 1:00am November 18, 2021 11:22am Start: 08-10-2019 take 1 mg by mouth once daily metformin 500 mg ER Tab mg tab(s), Oral, Daily, Refills(s) 0 Start Date: 08/10/19 Status: [facility] met[facility]MIN HCl 1000 MG 1 tablet with a meal Orally TWICE A DAY Active Comment on above: Metformin Active 500 MG PO Twice daily September 11, 2021 10:23pm potassium chloride 10 meq extended release oral tablet (20 sources) Start: 11-17-2021 End: 04-09-2022 Potassium Chloride (Klor-Con 10) 10 mEq Tablet Extended Release Discontinued 10 MEQ PO Daily November 17, 2021 12:00am April 09, 2022 11:50pm take 1 capsule by mo [facility] every twenty-four hours Potassium Chloride ER 10 [...] 5 mg/ml ophthalmic solution (2 sources) beta-Adrenergic Brittany Start: 10-01-2021 timolol maleate (TIMOPTIC) 0.5 % ophthalmic solution Use 1 Drop in the left eye twice daily. 10 mL 0 10/01/2021 Active Comment on above: Use 1 Drop in the le ft eye twice daily. torsemide 20 mg oral tablet (20 sources) Loop Diuretic Start: 11-13-2021 End: 11-18-2021 take 60 mg by mouth once daily Torsemide Discontinued 60 MG PO Daily November 13, 2021 12:00am November 18, 2021 11:22am take 3 tablets by mo [facility] every twenty-four hours Torsemide 20 MG 3 TABLETS Orally Once a day for 90 day(s) Active Problems Active Problems Problem Classification Problem Date Documented Date Episodic/Chronic Acute and unspecified renal failure (15 sources) Renal failure syndrome; Translations: [Unspecified kidney failure] Onset: 3 01-09-2023 Chronic Acute and unspecified renal failure (20 sources) Injury of kidney; Translations: [Acute kidney failure, unspecified] 09-11-2021 Episodic Anxiety disorders (20 sources) Generalized anxiety disorder; Translations: [Generalized anxiety disorder] Chronic Calculus of urinary tract (2 sources) Kidney stone 08-29-2022 Episodic Chronic kidney disease (20 sources) Chronic kidney disease stage 3B ; Translations: [Stage 3b chronic kidney disease] Onset: 3 11-13-2021 Chronic Chronic kidney disease (20 sources) Chronic kidney disease; Translations: [Chronic kidney disease, stage III (moderate)] Onset: 2 Resolved: 2 Chronic obstructive pulmonary disease and bronchiectasis (11 sources) Mucopurulent chronic bronchitis; Translations: [Mucopurulent chronic bronchitis] 11-14-2023 Chronic Complication of device; implant or graft (20 sources) Arteriovenous fistula occlusion; Translations: [Other specified complication of vascular prosthetic devices, implants and grafts, initial encounter] Onset: 4 Chronic Congestive heart failure; nonhypertensive (20 sources) Congestive heart failure; Translations: [Congestive heart failure, unspecified] Onset: 4 11-13-2021 Chronic Coronary atherosclerosis and other heart disease (20 sources) Coronary arteriosclerosis; Translations: [Coronary atherosclerosis of unspecified type of vessel, [place] or graft] Onset: 3 08-13-2022 Chronic Deficiency and other anemia (20 sources) Anemia of renal disease; Translations: [Anemia in chronic kidney disease] Chronic Deficiency and other anemia (15 sources) Anemia in chronic kidney disease Onset: 2 Resolved: 2 Chronic Deficiency and other anemia (20 sources) Anemia; Translations: [Anemia in chronic kidney disease] Chronic Deficiency and other anemia (20 sources) Anemia; Translations: [Anemia, unspecified] Onset: 4 10-01-2021 Episodic Deficiency and other anemia (20 sources) Anemia, unspecified; Translations: [Anemia, unspecified] 08-13-2022 Episodic Diabetes mellitus with complications (20 sources) Renal disorder due to type 1 diabetes mellitus; Translations: [Type 1 diabetes mellitus with diabetic nephropathy] Onset: 2 Resolved: 2 Chronic Diabetes mellitus without complication (20 sources) Diabetes mellitus; Translations: [Diabetes mellitus without mention of complication, type II or unspecified type, not stated as uncontrolled] Onset: 9 11-14-2021 Chronic Diabetes mellitus without complication (3 sources) Glycosuria; Translations: [Glycosuria] Onset: 3 Episodic [...] essential hypertension; Translations: [Benign essential hypertension] Onset: 4 11-13-2021 Chronic Glaucoma (20 sources) Raised intraocular pressure; Translations: [Ocular hypertension, unspecified eye] Onset: 2 10-01-2021 Chronic Headache; including migraine (2 sources) Cluster headache 08-10-2019 Chronic Headache; including migraine [...] changes] Onset: 2 Resolved: 2 Chronic Osteoarthritis (2 sources) Arthritis 08-29-2022 Chronic Other aftercare (5 sources) Encounter for palliative care; Translations: [Encounter for palliative care] 10-17-2023 Episodic Other aftercare (2 sources) penitentiary (current) use of insulin; Translations: [penitentiary (current) use of insulin (Multi)] Onset: 4 Episodic Other and ill-defined heart disease (2 sources) Heart disease 08-29-2022 Chronic Other circulatory disease (20 sources) Acquired arteriovenous fistula aneurysm; Translations: [Arteriovenous fistula, acquired] Chronic Other circulatory disease (9 sources) Arteriovenous fistula, acquired; Translations: [Arteriovenous fistula, acquired] Chronic Other circulatory disease (4 sources) Arteriovenous fistula; Translations: [Arteriovenous fistula, acquired] 11-13-2023 Chronic Other circulatory disease (20 sources) H/O: heart disorder; Translations: [Personal history of other diseases of the circulatory system] 04-10-2022 Episodic Other connective tissue disease (20 sources) Muscle pain; Translations: [Myalgia, unspecified site] 09-19-2021 Episodic Other diseases of kidney and ureters (20 sources) Secondary hyperparathyroidism; Translations: [Secondary hyperparathyroidism of renal origin] 11-13-2023 Chronic Other diseases of kidney and ureters (12 sources) Secondary hyperparathyroidism of renal origin; Translations: [Secondary hyperparathyroidism of renal origin] Onset: 2 Resolved: 2 Chronic Other diseases of veins and lymphatics (9 sources) Peripheral venous insufficiency; Translations: [Venous insufficiency (chronic) (peripheral)] 11-13-2023 Episodic Other endocrine disorders (20 sources) Hypoglycemia; Translations: [Hypoglycemia, unspecified] 07-09-2022 Chronic Other eye disorders (20 sources) Hemorrhage of left vitreous body; Translations: [Vitreous hemorrhage, left eye] 10-01-2021 Chronic Other gastrointestinal disorders (2 sources) Pneumatosis cystoides intestinalis; Translations: [Other specified disorders of intestine] Episodic Other gastrointestinal disorders (1 source) Constipation; Translations: [Constipation, unspecified] 10-19-2023 Episodic Other gastrointestinal disorders (1 source) Constipation, unspecified; Translations: [Constipation, unspecified] 10-17-2023 Episodic Other hematologic conditions (20 sources) Raised [...] [Cough] 05-22-2022 Episodic Other male genital disorders (19 sources) Induratio penis plastica; Translations: [Induration penis plastica] Onset: 3 Chronic Other male genital disorders (3 sources) Male erectile dysfunction, unspecified; Translations: [Erectile dysfunction] Onset: 3 Chronic Other male genital disorders (2 sources) 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 Other male genital disorders (5 sources) Impotence of organic origin; Translations: [Male erectile dysfunction, unspecified] Chronic Other male genital disorders (11 sources) Erectile dysfunction co-occurrent and due to arterial insufficiency; Translations: [Erectile dysfunction due to arterial insufficiency] 11-13-2023 Chronic Other male genital disorders (1 source) Induration penis plastica Chronic Other male genital disorders (20 sources) Pain in scrotum ; Translations: [Scrotal pain] 10-14-2021 Episodic Other male genital disorders (5 sources) Hemospermia; Translations: [Hematospermia] Episodic Other nervous system disorders (1 source) Chronic pain syndrome; Translations: [Chronic pain syndrome] 10-17-2023 Chronic Other nervous system disorders (1 source) Chronic pain syndrome; Translations: [Chronic pain syndrome] 10-17-2023 Chronic Other non-traumatic joint disorders (2 sources) Derangement of left shoulder joint; Translations: [Other specific joint derangements of left shoulder, not elsewhere classified] 09-26-2023 Chronic Other non-traumatic joint disorders (2 sources) Pain in left shoulder; Translations: [Pain in joint, shoulder region] 09-26-2023 Episodic Other non-traumatic joint disorders (2 sources) Disorder of shoulder; Translations: [Other specified joint disorders, left shoulder] 09-26-2023 Episodic Other nutritional; endocrine; and metabolic disorders (20 sources) Ketosis; Translations: [Other specified metabolic disorders] 09-19-2021 Chronic Other screening for suspected conditions (not mental disorders or infectious disease) (6 sources) Patient encounter status; Translations: [Encounter for screening [...] other reasons] 06-03-2022 Episodic Residual codes; unclassified (18 sources) Body mass index 20-24 - normal; Translations: [Body Mass Index between 19-24, adult] Onset: 4 12-03-2023 Episodic Residual codes; unclassified (1 source) Decreased libido Episodic Residual codes; unclassified (2 sources) Body mass index (BMI) 22.0-22.9, adult; Translations: [Body mass index (BMI) 22.0-22.9, adult] Onset: 4 Episodic Substance-related disorders (20 sources) Smokes tobacco daily; Translations: [Tobacco use disorder] Onset: 4 Chronic Comment on above: 3 cigs daily; 1-2 Packs of cigaret josé daily; 1 Pack of cigarettes daily; Syncope (20 sources) Syncope; Translations: [Syncope and collapse] 08-13-2022 Episodic Unclassified (2 sources) Asymptomatic microscopic hematuria 08-29-2022 Unclassified (1 source) Arteriovenous fistula, acquired; Translations: [Arteriovenous fistula, acquired] Onset: 4 Unclassified (1 source) Other specified complication of [...] Problem Date Documented Da te Episodic/Chronic Acute myocardial infarction (20 sources) Myocardial infarction; Translations: [Subendocardial infarction, initial episode of care] Onset: 08-20-2023 Resolved: 12-03-2023 11-13-2021 Chronic Coronary atherosclerosis and other heart disease (8 sources) Presence of coronary angioplasty implant and graft; Translations: [Percutaneous transluminal coronary angioplasty status] Onset: 02-04-2023 01-09-2023 Episodic Fluid and electrolyte disorders (20 sources) Absolute hypovolemia; Translations: [Hypovolemia] Onset: 02-27-2023 09-19-2021 Episodic Genitourinary symptoms and ill-defined conditions (15 sources) Proteinuria, unspecified; Translations: [Proteinuria] Onset: 11-08-2021 Resolved: 03-29-2022 Episodic Malaise and fatigue (20 sources) Asthenia; Translations: [Weakness] Onset: 02-27-2019 06-13-2022 Episodic Nonspecific chest pain (20 sources) Chest pain; Translations: [Chest pain, unspecified] Onset: 08-18-2023 10-14-2021 Episodic Other circulatory disease (10 sources) History of cardiomyopathy; Translations: [Other postprocedural status] Resolved: 02-26-2023 Episodic Other circulatory disease (4 sources) H/O: angina pectoris; Translations: [Personal history of other diseases of circulatory system] Resolved: 02-26-2023 Episodic Other diseases of kidney and ureters (4 sources) Renal impairment; Translations: [Unspecified disorder of kidney and ureter] Onset: 08-20-2023 Resolved: 12-03-2023 12-03-2023 Episodic Other nervous system disorders (1 source) Personal history of other diseases of the nervous system and sense organs; Translations: [History of retinal detachment] Onset: 10-01-2021 Episodic Other skin disorders (1 source) Change in skin lesion; Translations: [Anemia in chronic kidney disease] Onset: 02-27-2023 Episodic Residual codes; unclassified (3 sources) Generalized edema; Translations: [GENERALIZED EDEMA] Onset: 10-25-2021 Episodic Spondylosis; intervertebral disc disorders; other back problems (5 sources) Low back pain; Translations: [Low back pain, unspecified] Onset: 02-27-2019 Episodic Results Test Name Value Interpretation Reference Range Facility Bacteria identifiedon 2023 Bacteria identified Cx Nom (Body fld) Test: Sterile Fluid Culture/Smear Specimen Source: Vitreous Specimen Type: Fluid Specimen Date: 12/16/2023 1800 Result Date: 12/21/2023 1343 Result Status: Final result Resulting Lab: [facility] [address] [place] [address] CULTURE No growth aerobically and anaerobically STAIN No polymorphonuclear leukocytes seen No organisms seen Normal [facility] Comment on above: Performed By: #### 6 11-4 #### VIVEK Almaraz ([id number]) [facility] ([facility]) [address] [place] [address] Patient Correspondenceon Patient Correspondence [id number] Normal [facility] Amphetamine Screen Ql (U)Ord ered By: Yordy Garg on 11-26-2023 Amphetamines Ql (U) Negative Negative [facility] Barbiturates [Presence] in U rine by Screen methodOrdered By: Yordy Garg on 11-26-2023 Barbiturates Screen Ql (U) Negative Negative [facility] Basic Metabolic Panelon 04-0 Anion gap [Moles/Vol] 15.0 mmol/L Normal 6.0-15.0 Th e [facility] Comment on above: Performed By: #### B ROBERTO, #### [address] Calcium [Mass/Vol] 8.8 mg/dL Normal 8.6-10.3 [facility] Comment on above: Performed By: #### B ROBERTO, HH #### [facility] [address] [place] [address] [place] Chloride [Moles/Vol] 93 mmol/L Low 98-107 [facility] Comment on above: Performed By: #### B ROBERTO, HH #### [facility] [address] [place] [id number] [place] CO2 [Moles/Vol] 25.0 mmol/L Normal 21.0-31.0 [facility] Comment on above: Performed By: #### B ROBERTO, HH #### [facility] [address] [place] [address] [place] Creatinine [Mass/Vol] 6.56 mg/dL High 0.70-1.30 [facility] Comment on above: Performed By: #### B ROBERTO, #### [place] [address] [place] Creatinine Clr Calc Pharmacy 15.44 Normal [facility] Comment on above: Result Comment: PERF ORMED BY: [place] [address] PATHOLOGIST CV/CVN CV TSC SYSTEM OPERATOR LEVY GILES M.D. Performed By: #### B ROBERTO, HH #### [place] [address] [place] GFR/1.73 sq M.predicted MDRD (S/P/Bld) [Vol rate/Area] 10.339 mL/min/{1.73_m2} Normal [facility] Comment on above: Performed By: #### B ROBERTO, #### [address] Glucose [Mass/Vol] 339 mg/dL High 70-100 [facility] Comment on above: Result Comment: [facility] [place][note 2] Glucose Reference Range is dependent on time and content of last meal. Glucose of more than 200 mg/dL in a nonstressed, ambulatory subject supports the diagnosis of Diabetes Mellitus. ADA recommended reference range Performed By: #### B ROBERTO, #### [address] Potassium [Moles/Vol] 4.0 mmol/L Normal 3.5-5.1 [facility] Comment on above: Performed By: #### Rosette MEJIA, #### [address] Sodium [Moles/Vol] 129 mmol/L Low 136-145 [facility] Comment on above: Performed By: #### B ROBERTO, #### [address] Urea nitrogen [Mass/Vol] 43 mg/dL High 7-25 [facility] Comment on above: Performed By: #### B ROBERTO, #### [address] Benzodiazepines Screen Ql (U )Ordered By: Yordy Garg on 11-26-2023 Benzodiazepines Ql (U) Negative Negative [facility] Benzoylecgonine [Presence] i n Urine by Screen methodOrdered By: Yordy Garg on 11-26-2023 Benzoylecgonine Screen Ql (U) Negative Negative [facility] Calcium [Mass/volume] in Ser um or PlasmaOrdered By: Yordy Garg on 11-26-2023 Calcium [Mass/Vol] 8.8 mg/dL 8.6-10.3 [facility] Cannabinoids [Presence] in U rine by Screen methodOrdered By: Yordy Garg on 11-26-2023 Cannabinoids Screen Ql (U) Negative Negative [facility] Comment on above: These are unconfirme d results and should not be used for legal purposes. Drug Cut-Off Concentration: AMPH 1000 ng/mL BYRON 200 ng/mL STEPHANIE 200 ng/mL COCM 300 ng/mL OP 300 ng/mL PCP 25 ng/mL THC 20 ng/mL Carbon dioxide, total [Moles /volume] in Serum or PlasmaOrdered By: Yordy Garg on 11-26-2023 CO2 [Moles/Vol] 25.0 mmol/L 21.0-31.0 [facility] Chloride [Moles/volume] in S gretta or PlasmaOrdered By: Yordy Garg on 11-26-2023 Chloride [Moles/Vol] 93 mmol/L 98-107 [facility] Creatinine [Mass/volume] in Serum or PlasmaOrdered By: Yordy Garg on 11-26-2023 Creatinine [Mass/Vol] 6.56 mg/dL 0.70-1.30 [facility] Drug Screen,Urineon 11-26-19 24 Amphetamine Screen,Urine Negative Normal Negative [facility] Comment on above: Performed By: #### U RDS #### [facility] [address] Barbiturate Screen,Urine Negative Normal Negative [facility] Comment on above: Performed By: #### U RDS #### [facility] [address] [place] [address] [place] Benzodiazepines Screen,Urine Negative Normal Negative [facility] Comment on above: Performed By: #### U RDS #### [address] Cannabinoid Screen,Urine Negative Normal Negative [facility] Comment on above: Result Comment: Thes e are unconfirmed results and should not be used for legal purposes. Drug Cut-Off Concentration: AMPH 1000 ng/mL BYRON 200 ng/mL STEPHANIE 200 ng/mL COCM 300 ng/mL OP 300 ng/mL PCP 25 ng/mL THC 20 ng/mL PERFORMED BY: [place] [id number] PATHOLOGIST CV/CVN CV TSC SYSTEM OPERATOR LEVY GILES M.D. Performed By: #### U RDS #### [address] Cocaine Screen,Urine Negative Normal Negative [facility] Comment on above: Performed By: #### U RDS #### [address] Opiate Screen,Urine Negative Normal Negative [facility] Comment on above: Performed By: #### U RDS #### [place] [address] [place] Phencyclidine Screen,Urine Negative Normal Negative [facility] Comment on above: Performed By: #### U RDS #### [address] ECG 12 lead ECGon 11-26-2023 ECG 12 lead ECG [facility] Main [place] [address] [place] [address] Electrocardiograph Report Signed Patient: Yoel Werner MR#: [id number] : 1985 Acct:[id number] Age/Sex: 38 / M ADM Date: 11/26/23 Loc: [place] Room: Type: [facility] Attending Dr: Romain Mendoza MD Ordering Provider: Yordy Garg MD Date of Service: 11/26/2305/12/823 ECG/ECG 12 lead ECG: preop Copies to: Test Reason : Blood Pressure : / mmHG Vent. Rate : 073 BPM Atrial Rate : 073 BPM P-R Int : 182 ms QRS Dur : 088 ms QT Int : 418 ms P-R-T Axes : 058 019 171 degrees QTc Int : 460 ms Normal sinus rhythm Prolonged QT Abnormal ECG When compared with ECG of 02-OCT-2023 09:56, ST no longer depressed in Inferior leads T wave inversion no longer evident in Inferior leads Confirmed by BRADEN MOLINA [facility] Smith ([id number]) on 11/28/2023 9:54:20 AM Referred By: Electronically Signed By:ROBYN STEWART MD [facility] Transcribed By: MUS Signed By Elder Stewart MD 11/28/23 0954 Normal [facility] Glucose Glucometer (BldC) [M ass/Vol]Ordered By: Romain Mendoza on 11-26-2023 Glucose [Mass/Vol] 235 mg/dL [facility] Comment on above: Random Glucose Refer ence Range is dependent on time and content of last meal. Glucose of more than 200 mg/dL in a nonstressed, ambulatory subject supports the diagnosis of Diabetes Mellitus. Glucose Poct Glucometerson 0 11-26-2023 Glucose [Mass/Vol] 235 mg/dL Normal [facility] Comment on above: Result Comment: [place] om Glucose Reference Range is dependent on time and content of last meal. Glucose of more than 200 mg/dL in a nonstressed, ambulatory subject supports the diagnosis of Diabetes Mellitus. PERFORMED BY: [place] [id number] PATHOLOGIST CV/CVN CV TSC SYSTEM OPERATOR LEVY GILES M.D. Performed By: #### C BC, CMP #### [address] #### KAPPA, SPE, MELIDA SERUM #### [facility] , Glucose [Mass/Vol] 366 mg/dL Normal [facility] Comment on above: Result Comment: [place] Glucose Reference Range is dependent on time and content of last meal. Glucose of more than 200 mg/dL in a nonstressed, ambulatory subject supports the diagnosis of Diabetes Mellitus. PERFORMED BY: [place] [id number] PATHOLOGIST CV/CVN CV TSC SYSTEM OPERATOR LEVY GILES M.D. Performed By: #### C BC, CMP #### [address] #### KAPPA, SPE, MELIDA SERUM #### [facility] , Glucose [Mass/volume] in Ser um or PlasmaOrdered By: Yordy Garg on 11-26-2023 Glucose [Mass/Vol] 339 mg/dL 70-100 [facility] Comment on above: ADA recommended refe rence rangeRandom Glucose Reference Range is dependent on time and content of last meal. Glucose of more than 200 mg/dL in a nonstressed, ambulatory subject supports the diagnosis of Diabetes Mellitus. Hematocrit Auto (Bld) [Volum e fraction]Ordered By: Yordy Garg on 11-26-2023 Hematocrit (Bld) [Volume fraction] 27.8 % 38.8-50.0 [facility] Hemoglobin [Mass/volume] in BloodOrdered By: Yordy Garg on 11-26-2023 Hemoglobin (Bld) [Mass/Vol] 9.8 g/dL 13.0-17.0 [facility] Hemoglobin and Hematocriton 11-26-2023 Hematocrit (Bld) [Volume fraction] 27.8 % Low 38.8-50.0 [facility] Comment on above: Result Comment: PERF ORMED BY: [place] [id number] PATHOLOGIST CV/CVN CV TSC SYSTEM OPERATOR LEVY GILES M.D. Performed By: #### B ROBERTO, #### [address] Hemoglobin (Bld) [Mass/Vol] 9.8 g/dL Low 13.0-17.0 [facility] Comment on above: Performed By: #### B ROBERTO, #### [address] No Panel InformationOrdered By: Yordy Garg on 11-26-2023 Estimated GFR (CKD-EPI) 10.339 mL/Min [facility] Creatinine Clearance (Chem 15.44 [facility] Opiates [Presence] in Urine by Screen methodOrdered By: Yordy Garg on 11-26-2023 Opiates Screen Ql (U) Negative Negative [facility] Phencyclidine Screen Ql (U)O rdered By: Yordy Garg on 11-26-2023 Phencyclidine Ql (U) Negative Negative [facility] Potassium [Moles/volume] in Serum or PlasmaOrdered By: Yordy Garg on 11-26-2023 Potassium [Moles/Vol] 4.0 mmol/L 3.5-5.1 [facility] Serum or plasma anion gap de terminationOrdered By: Yordy Garg on 11-26-2023 Anion gap [Moles/Vol] 15.0 mmol/L 6.0-15.0 [facility] Sodium [Moles/volume] in Ser um or PlasmaOrdered By: Yordy Garg on 11-26-2023 Sodium [Moles/Vol] 129 mmol/L 136-145 [facility] Urea nitrogen [Mass/volume] in Serum or PlasmaOrdered By: Yordy Garg on 11-26-2023 Urea nitrogen [Mass/Vol] 43 mg/dL 7-25 [facility] Patient Letter FTMCon 2023 Patient Letter [facility] (Inserted Image. Erica ble to display) November 18, [address] [place] [id number] : 1985 Dear Yoel, You missed your scheduled appointment on: 11/18/[address] Robyn Guerin. Please note our appointment slots fill quickly. When you fail to cancel or reschedule an appointment the office is unable to fill the appointment slot that was reserved for you. In the future, we ask that you call 24 hours in advance to cancel your appointment. Our current reminder system gives you the opportunity to cancel by responding to our reminder text, phone call or email. You can also call the office to reschedule during normal business hours or use our on-line scheduling portal at your convenience. Our goal is to provide convenient and quality care to all of our patients. We appreciate your consideration regarding any future cancellations. Sincerely, [facility] [address], [place] [address] Normal [facility] Activated partial thrombopla stin time (aPTT) in platelet poor plasma by coagulation aOrdered By: Kavya Chapman on 10-02-2023 aPTT Coag (PPP) [Time] 31.7 s 25.1-36.5 [facility] Comment on above: A hematocrit value g reater than 55% may lead to inaccurate results in coagulation testing. Patients having hematocrit values >55% require a special collection tube for coagulation studies. Please contact the laboratory at [phone] for redraw instructions. B-Type Natriuretic Peptideon 10-02-2023 Natriuretic peptide B (Bld) [Mass/Vol] 611.0 pg/mL High 5-100 [facility] Comment on above: Result Comment: PERF ORMED BY: [place] [id number] PATHOLOGIST CV/CVN CV TSC SYSTEM OPERATOR LEVY GILES M.D. Performed By: #### C BC, CMP #### [address] #### KAPPA, SPE, MELIDA SERUM #### [facility] , Basic Metabolic Panelon 09-19 Anion gap [Moles/Vol] 14.0 mmol/L Normal 6.0-15.0 [facility] Comment on above: Performed By: #### C BC, CMP #### [place] [address] [place] #### KAPPA, SPE, MELIDA SERUM #### [facility] , Calcium [Mass/Vol] 8.5 mg/dL Low 8.6-10.3 [facility] Comment on above: Performed By: #### C BC, CMP #### [place] [address] [place] #### KAPPA, SPE, MELIDA SERUM #### [facility] , Chloride [Moles/Vol] 97 mmol/L Low 98-107 [facility] Comment on above: Performed By: #### C BC, CMP #### [address] #### KAPPA, SPE, MELIDA SERUM #### [facility] , CO2 [Moles/Vol] 28.7 mmol/L Normal 21.0-31.0 [facility] Comment on above: Performed By: #### C BC, CMP #### [address] #### KAPPA, SPE, MELIDA SERUM #### [facility] , Creatinine [Mass/Vol] 4.60 mg/dL High 0.70-1.30 [facility] Comment on above: Performed By: #### C BC, CMP #### [address] #### KAPPA, SPE, MELIDA SERUM #### [facility] , Creatinine Clr Calc Pharmacy 22.79 Normal [facility] Comment on above: Result Comment: PERF ORMED BY: [place] [id number] PATHOLOGIST CV/CVN CV TSC SYSTEM OPERATOR LEVY GILES M.D. Performed By: #### C BC, CMP #### [address] #### KAPPA, SPE, MELIDA SERUM #### [facility] , GFR/1.73 sq M.predicted MDRD (S/P/Bld) [Vol rate/Area] 15.828 mL/min/{1.73_m2} Normal [facility] Comment on above: Performed By: #### C BC, CMP #### [address] #### KAPPA, SPE, MELIDA SERUM #### [facility] , Glucose [Mass/Vol] 214 mg/dL High 70-100 [facility] Comment on above: Result Comment: [place] om Glucose Reference Range is dependent on time and content of last meal. Glucose of more than 200 mg/dL in a nonstressed, ambulatory subject supports the diagnosis of Diabetes Mellitus. ADA recommended reference range Performed By: #### C BC, CMP #### [facility] [address] [place] [address] [place] #### KAPPA, SPE, MELIDA SERUM #### [facility] , Potassium [Moles/Vol] 3.7 mmol/L Normal 3.5-5.1 [facility] Comment on above: Performed By: #### C BC, CMP #### [facility] [address] [place] [address] [place] #### KAPPA, SPE, MELIDA SERUM #### [facility] , Sodium [Moles/Vol] 136 mmol/L Normal 136-145 [facility] Comment on above: Performed By: #### C BC, CMP #### [place] [address] [place] #### KAPPA, SPE, MELIDA SERUM #### [facility] , Urea nitrogen [Mass/Vol] 34 mg/dL High 7-25 [facility] Comment on above: Performed By: #### C BC, CMP #### [facility] [address] [place] [address] [place] #### KAPPA, SPE, MELIDA SERUM #### [facility] , Basophils Auto (Bld) [#/Vol] Ordered By: Kavya Bullimore on 10-02-2023 Basophils (Bld) [#/Vol] 0.1 10*3/uL 0.0-0.2 [facility] Basophils/100 WBC Auto (Bld) Ordered By: Kavya Bullimore on 10-02-2023 Basophils/100 WBC (Bld) 1.2 % . [facility] Calcium [Mass/volume] in Ser um or PlasmaOrdered By: Kavya Bullimore on 10-02-2023 Calcium [Mass/Vol] 8.5 mg/dL 8.6-10.3 [facility] Carbon dioxide, total [Moles /volume] in Serum or PlasmaOrdered By: Kavya Bullimore on 10-02-2023 CO2 [Moles/Vol] 28.7 mmol/L 21.0-31.0 [facility] Chloride [Moles/volume] in S gretta or PlasmaOrdered By: Kavya Chapman on 10-02-2023 Chloride [Moles/Vol] 97 mmol/L 98-107 [facility] Complete Blood Count Auto Di ffon 10-02-2023 Basophils (Bld) [#/Vol] 0.1 10*3/uL Normal 0.0-0.2 [facility] Comment on above: Result Comment: PERF ORMED BY: [place] [id number] PATHOLOGIST CV/CVN CV TSC SYSTEM OPERATOR LEVY GILES M.D. Performed By: #### C BC, CMP #### [address] #### KAPPA, SPE, MELIDA SERUM #### [facility] , Basophils/100 WBC (Bld) 1.2 % Normal . T julianna [facility] Comment on above: Performed By: #### C BC, CMP #### [address] #### KAPPA, SPE, MELIDA SERUM #### [facility] , Eosinophils (Bld) [#/Vol] 0.2 10*3/uL Normal 0.0-0.45 [facility] Comment on above: Performed By: #### C BC, CMP #### [place] [address] [place] #### KAPPA, SPE, MELIDA SERUM #### [facility] , Eosinophils/100 WBC (Bld) 2.4 % Normal . [facility] Comment on above: Performed By: #### C BC, CMP #### [place] [address] [place] #### KAPPA, SPE, MELIDA SERUM #### [facility] , Erythrocyte distribution width (RBC) [Ratio] 14.4 % Normal 12.0-14.8 [facility] Comment on above: Performed By: #### C BC, CMP #### [place] [address] [place] #### KAPPA, SPE, MELIDA SERUM #### [facility] , Hematocrit (Bld) [Volume fraction] 28.2 % Low 38.8-50.0 [facility] Comment on above: Performed By: #### C BC, CMP #### [place] [address] [place] #### KAPPA, SPE, MELIDA SERUM #### [facility] , Hemoglobin (Bld) [Mass/Vol] 9.8 g/dL Low 13.0-17.0 [facility] Comment on above: Performed By: #### C BC, CMP #### [address] #### KAPPA, SPE, MELIDA SERUM #### [facility] , Lymphocytes (Bld) [#/Vol] 1.0 10*3/uL Normal 1.00-4.8 [facility] Comment on above: Performed By: #### C BC, CMP #### [address] #### KAPPA, SPE, MELIDA SERUM #### [facility] , Lymphocytes/100 WBC (Bld) 12.5 % Normal . [facility] Comment on above: Performed By: #### C BC, CMP #### [place] [address] [place] #### KAPPA, SPE, MELIDA SERUM #### [facility] , MCH (RBC) [Entitic mass] 31.3 pg Normal 27.5-35.2 [facility] Comment on above: Performed By: #### C BC, CMP #### [place] [address] [place] #### KAPPA, SPE, MELIDA SERUM #### [facility] , MCV (RBC) [Entitic vol] 89.8 fL Normal 83.5-101 [facility] Comment on above: Performed By: #### C BC, CMP #### [place] [address] [place] #### KAPPA, SPE, MELIDA SERUM #### [facility] , Mean Corpuscular HGB Conc 34.8 g/dL Normal 32.5-35.6 [facility] Comment on above: Performed By: #### C BC, CMP #### [place] [address] [place] #### KAPPA, SPE, MELIDA SERUM #### [facility] , Monocytes (Bld) [#/Vol] 0.3 10*3/uL Normal 0.0-0.8 [facility] Comment on above: Performed By: #### C BC, CMP #### [place] [address] [place] #### KAPPA, SPE, MELIDA SERUM #### [facility] , Monocytes/100 WBC (Bld) 17.27 % Normal 0.00-20.00 [facility] Comment on above: Performed By: #### C BC, CMP #### [place] [address] [place] #### KAPPA, SPE, MELIDA SERUM #### [facility] , Monocytes/100 WBC (Bld) 3.5 % Normal . T [facility] Comment on above: Performed By: #### C BC, CMP #### [place] [address] [place] #### KAPPA, SPE, MELIDA SERUM #### [facility] , Neutrophils (Bld) [#/Vol] 6.2 10*3/uL Normal 1.8-7.7 [facility] Comment on above: Performed By: #### C BC, CMP #### [place] [address] [place] #### KAPPA, SPE, MELIDA SERUM #### [facility] , Neutrophils/100 WBC (Bld) 80.4 % Normal . [facility] Comment on above: Performed By: #### C BC, CMP #### [address] #### KAPPA, SPE, MELIDA SERUM #### [facility] , NRBC% 0.0 /100{WBC} Normal 0-0.5 [facility] Comment on above: Performed By: #### C BC, CMP #### [address] #### KAPPA, SPE, MELIDA SERUM #### [facility] , Platelet mean volume (Bld) [Entitic vol] 7.4 fL Normal 6.6-10.1 [facility] Comment on above: Performed By: #### C BC, CMP #### [place] [address] [place] #### KAPPA, SPE, MELIDA SERUM #### [facility] , Platelets (Bld) [#/Vol] 143 10*3/uL Low 150-450 [facility] Comment on above: Performed By: #### C BC, CMP #### [address] #### KAPPA, SPE, MELIDA SERUM #### [facility] , RBC (Bld) [#/Vol] 3.14 10*6/uL Low 3.90-5.60 [facility] Comment on above: Performed By: #### C BC, CMP #### [place] [address] [place] #### KAPPA, SPE, MELIDA SERUM #### [facility] , WBC (Bld) [#/Vol] 7.7 10*3/uL Normal 4.1-10.5 [facility] Comment on above: Performed By: #### C BC, CMP #### [facility] [address] [place] [address] [place] #### KAPPA, SPE, MELIDA SERUM #### [facility] , Creatine Kinaseon 10-02-2023 CK [Catalytic activity/Vol] 48 U/L Normal [facility] Comment on above: Performed By: #### C BC, CMP #### [facility] [address] [place] [address] #### KAPPA, SPE, MELIDA SERUM #### [facility] , Creatine kinase [Enzymatic a ctivity/volume] in Serum or PlasmaOrdered By: Kavya Chapman on 10-02-2023 CK [Catalytic activity/Vol] 48 U/L [facility] Creatinine [Mass/volume] in Serum or PlasmaOrdered By: Kavya Jadeimore on 10-02-2023 Creatinine [Mass/Vol] 4.60 mg/dL 0.70-1.30 [facility] ECG 12 lead ECGon 10-02-2023 ECG 12 lead ECG [facility] [place] [address] Electrocardiograph Report Signed Patient: Yoel Werner MR#: [id number] : 1985 Acct:[id number] Age/Sex: 38 / M ADM Date: 10/02/23 Loc: ER Room: Type: [facility] ER Attending Dr: Ordering Provider: NORI Moyer Date of Service: 10/02/23 ECG/ECG 12 lead ECG: CHEST PAIN Copies to: Test Reason : Blood Pressure : / mmHG Vent. Rate : 070 BPM Atrial Rate : 070 BPM P-R Int : 180 ms QRS Dur : 092 ms QT Int : 418 ms P-R-T Axes : 070 073 261 degrees QTc Int : 451 ms Normal sinus rhythm Septal infarct (cited on or before 12-AUG-2022) Abnormal ECG When compared with ECG of 04-FEB-2023 18:50, ST now depressed in Inferior leads Confirmed by Yobani Hansen DO ([id number]) on 10/02/2023 2:01:22 PM Referred By: Electronically Signed By:Yobani Hansen DO Transcribed By: MUS Signed By Yobani Hansen DO 4 1401 Normal [facility] Eosinophils Auto (Bld) [#/Vo l]Ordered By: Kavya Chapman on 10-02-2023 Eosinophils (Bld) [#/Vol] 0.2 10*3/uL 0.0-0.45 [facility] Eosinophils/100 WBC Auto (Bl d)Ordered By: Kavya Chapman on 10-02-2023 Eosinophils/100 WBC (Bld) 2.4 % . [facility] Erythrocyte distribution wid th Auto (RBC) [Ratio]Ordered By: Kavya Chapman on 10-02-2023 Erythrocyte distribution width (RBC) [Ratio] 14.4 % 12.0-14.8 [facility] Glucose [Mass/volume] in Ser um or PlasmaOrdered By: Kavya Chapman on 10-02-2023 Glucose [Mass/Vol] 214 mg/dL 70-100 [facility] Comment on above: ADA recommended refe rence rangeRandom Glucose Reference Range is dependent on time and content of last meal. Glucose of more than 200 mg/dL in a nonstressed, ambulatory subject supports the diagnosis of Diabetes Mellitus. Hematocrit Auto (Bld) [Volum e fraction]Ordered By: Kavya Chapman on 10-02-2023 Hematocrit (Bld) [Volume fraction] 28.2 % 38.8-50.0 [facility] Hemoglobin [Mass/volume] in BloodOrdered By: Kavya Chapman on 10-02-2023 Hemoglobin (Bld) [Mass/Vol] 9.8 g/dL 13.0-17.0 [facility] INR in Platelet poor plasma by Coagulation assayOrdered By: Kavya Chapman 10-02-2023 INR Coag (PPP) [Relative time] 1.0 {INR} [facility] Comment on above: INR Therapeutic Rang e A) Pre- and Peroperative OAT started two weeks before surgery. NOT HIP SURGERY: 1.5 - 2.5 HIP SURGERY: 2 - 3B) Primary and secondary prevention of venous THROMBOSIS: 2 - 3C) Active venous thrombosis, pulmonary embolismand prevention of recurrent venous thrombosis: 2 - 3D) Prevention of arterial thromboembolismincluding patients with mechanical heart valves: 3 - 4.5 Leukocytes [#/volume] correc celena for nucleated erythrocytes in Blood by Automated counOrdered By: Kavya Bullimore on 10-02-2023 WBC corrected for nucl RBC Auto (Bld) [#/Vol] 7.7 10*3/uL 4.1-10.5 [facility] Lymphocytes Auto (Bld) [#/Vo l]Ordered By: Kavya Bullimore on 10-02-2023 Lymphocytes (Bld) [#/Vol] 1.0 10*3/uL 1.00-4.8 [facility] Lymphocytes/100 WBC Auto (Bl d)Ordered By: Kavya Bullimore on 10-02-2023 Lymphocytes/100 WBC (Bld) 12.5 % . [facility] MCH Auto (RBC) [Entitic mass ]Ordered By: Kavya Bullimore on 10-02-2023 MCH (RBC) [Entitic mass] 31.3 pg 27.5-35.2 [facility] MCHC Auto (RBC) [Mass/Vol]Or dered By: Kavya Bullimore on 10-02-2023 MCHC (RBC) [Mass/Vol] 34.8 g/dL 32.5-35.6 [facility] MCV Auto (RBC) [Entitic vol] Ordered By: Kavya Bullimore on 10-02-2023 MCV (RBC) [Entitic vol] 89.8 fL 83.5-101 [facility] Monocyte distribution width [Entitic volume] in Blood by AutomatedOrdered By: Kavya Bullimore on 10-02-2023 Monocyte distribution width Auto (Bld) [Entitic vol] 17.27 % 0.00-20.00 [facility] Monocytes Auto (Bld) [#/Vol] Ordered By: Kavya Bullimore on 10-02-2023 Monocytes (Bld) [#/Vol] 0.3 10*3/uL 0.0-0.8 [facility] Monocytes/100 WBC Auto (Bld) Ordered By: Kavya Bullimore on 10-02-2023 Monocytes/100 WBC (Bld) 3.5 % . [facility] Natriuretic peptide B [Mass/ Vol]Ordered By: Kavya Chapman on 10-02-2023 Natriuretic peptide B (Bld) [Mass/Vol] 611.0 pg/mL 5-100 [facility] Neutrophils Auto (Bld) [#/Vo l]Ordered By: Kavyaselma Ramore on 10-02-2023 Neutrophils (Bld) [#/Vol] 6.2 10*3/uL 1.8-7.7 [facility] Neutrophils/100 WBC Auto (Bl d)Ordered By: [facility] Leannaore on 10-02-2023 Neutrophils/100 WBC (Bld) 80.4 % . [facility] No Panel InformationOrdered By: Kavyaselma Chapman on 10-02-2023 Estimated GFR (CKD-EPI) 15.828 mL/Min [facility] Creatinine Clearance (Chem 22.79 [facility] Nucleated erythrocytes [Pres ence] in Blood by Automated countOrdered By: [facility] Yasmanyteresita on 10-02-2023 Nucleated RBC Auto Ql (Bld) 0.0 /100{WBC} 0-0.5 [facility] Partial Thromboplastin Timeo n 10-02-2023 aPTT Coag (Bld) [Time] 31.7 s Normal 25.1-36.5 Th [facility] Comment on above: Result Comment: A he matocrit value greater than 55% may lead to inaccurate results in coagulation testing. Patients having hematocrit values >55% require a special collection tube for coagulation studies. Please contact the laboratory at [phone] for redraw instructions. PERFORMED BY: [place] [id number] PATHOLOGIST CV/CVN CV TSC SYSTEM OPERATOR LEVY GILES M.D. Performed By: #### C BC, CMP #### [facility] [address] [place] [address] #### KAPPA, SPE, MELIDA SERUM #### [facility] , Platelet mean volume Auto (B ld) [Entitic vol]Ordered By: Kavyaselma Chapman on 10-02-2023 Platelet mean volume (Bld) [Entitic vol] 7.4 fL 6.6-10.1 [facility] Platelets Auto (Bld) [#/Vol] Ordered By: Kavya Chapman on 10-02-2023 Platelets (Bld) [#/Vol] 143 10*3/uL 150-450 [facility] Potassium [Moles/volume] in Serum or PlasmaOrdered By: Kavya Chapman on 10-02-2023 Potassium [Moles/Vol] 3.7 mmol/L 3.5-5.1 [facility] Prothrombin Time INRon 10-02 INR Coag (PPP) [Relative time] 1.0 {INR} Normal [facility] Comment on above: Result Comment: INR Therapeutic [...] 3 - 4.5 Performed By: #### C BC, CMP #### [facility] [address] [place] [address] [place] #### KAPPA, SPE, MELIDA SERUM #### [facility] , PT Coag (PPP) [Time] 12.0 s Normal 9.0-12.9 [facility] Comment on above: Result Comment: A he matocrit value greater than 55% may lead to inaccurate results in coagulation testing. Patients having hematocrit values >55% require a special collection tube for coagulation studies. Please contact the laboratory at [phone] for redraw instructions. Performed By: #### C BC, CMP #### [facility] [address] [place] [address] [place] #### KAPPA, SPE, MELIDA SERUM #### [facility] , Prothrombin time (PT)Ordered By: Kavya Chapman on 10-02-2023 PT Coag (PPP) [Time] 12.0 s 9.0-12.9 [facility] Comment on above: A hematocrit value g reater than 55% may lead to inaccurate results in coagulation testing. Patients having hematocrit values >55% require a special collection tube for coagulation studies. Please contact the laboratory at [phone] for redraw instructions. RBC Auto (Bld) [#/Vol]Ordere d By: Kavya Chapman on 10-02-2023 RBC (Bld) [#/Vol] 3.14 10*6/uL 3.90-5.60 [facility] Serum or plasma anion gap de terminationOrdered By: Kavya Bullimore on 10-02-2023 Anion gap [Moles/Vol] 14.0 mmol/L 6.0-15.0 [facility] Sodium [Moles/volume] in Ser um or PlasmaOrdered By: Kavya Bullimore on 10-02-2023 Sodium [Moles/Vol] 136 mmol/L 136-145 [facility] Troponin I High Sensitivityo n 10-02-2023 Troponin I High Sensitivity 31.0 pg/mL High 0.0-20.0 [facility] Comment on above: Result Comment: PERF ORMED BY: [place] [id number] PATHOLOGIST CV/CVN CV TSC SYSTEM OPERATOR LEVY GILES M.D. Performed By: #### C BC, CMP #### [address] #### KAPPA, SPE, MELIDA SERUM #### [facility] , Troponin I.cardiac [Mass/vol ume] in Serum or Plasma by Detection limit <= 0.01 ng/Ordered By: Kavyaselma Chapman on 10-02-2023 Troponin I.cardiac DL <= 0.01 ng/mL [Mass/Vol] 31.0 pg/mL 0.0-20.0 [facility] Urea nitrogen [Mass/volume] in Serum or PlasmaOrdered By: Kavyaselma Jadeimore on 10-02-2023 Urea nitrogen [Mass/Vol] 34 mg/dL 7-25 [facility] WBC Auto (Bld) [#/Vol]Ordere d By: Kavya Bullimore on 10-02-2023 WBC (Bld) [#/Vol] 7.7 10*3/uL 4.1-10.5 [facility] XR chest 2V*on 10-02-2023 XR chest 2V* [facility] Main [address] [address] XRay Report Signed Patient: Yoel Werner MR#: [id number] : 1985 Acct:[id number] Age/Sex: 38 / M ADM Date: 10/02/23 Loc: ER Room: Type: [facility] ER Attending Dr: Copies to: NORI Moyer Ordering Provider: NORI Moyer Date of Service: 10/02/23 XR/XR chest 2V*: Chest Pain Chest 2 views CLINICAL HISTORY: Midsternal chest pain starting last night. Nausea shortness of breath COMPARISON: Chest 08/17/2023 FINDINGS: Heart normal size. Lungs are clear. No free air. XR/XR chest 2V* IMPRESSION: NO ACUTE CARDIOPULMONARY ABNORMALITY. Impression dictated by: Yoel Mart Jr., D.O.10/02/2023 11:07 AM Dictation Location: [place] [address] Transcribed By: [facility] 10/02/23 110 Dictated By: Yoel Mart Jr, DO 10/02/23 110 Signed By: 10/02/23 1107 Normal [facility] Alanine aminotransferase [En zymatic activity/volume] in Serum or PlasmaOrdered By: Va Forte on 09-24-2023 ALT [Catalytic activity/Vol] 11 U/L 7-52 [facility] Albumin [Mass/volume] in Ser um or PlasmaOrdered By: Va Forte on 09-24-2023 Albumin [Mass/Vol] 3.7 g/dL 2.9-4.4 [facility] Albumin [Mass/volume] in Ser um or Plasma by Bromocresol green (BCG) dye binding methoOrdered By: Va Forte on 09-24-2023 Albumin BCG dye [Mass/Vol] 3.6 g/dL 3.5-5.7 [facility] Alkaline phosphatase [Enzyma tic activity/volume] in Serum or PlasmaOrdered By: Va Reanna on 09-24-2023 ALP [Catalytic activity/Vol] 63 U/L 34-104 [facility] Aspartate aminotransferase [ Enzymatic activity/volume] in Serum or PlasmaOrdered By: Av Reanna on 09-24-2023 AST [Catalytic activity/Vol] 12 U/L 13-39 [facility] Basophils Auto (Bld) [#/Vol] Ordered By: Va Reanna on 09-24-2023 Basophils (Bld) [#/Vol] 0.1 10*3/uL 0.0-0.2 [facility] Basophils/100 WBC Auto (Bld) [facility] 09-24-2023 Basophils/100 WBC (Bld) 1.4 % . [facility] Bilirubin.total [Mass/volume ] in Serum or PlasmaOrdered By: [facility] Reanna on 09-24-2023 Bilirubin [Mass/Vol] 0.6 mg/dL 0.3-1.0 [facility] Calcium [Mass/volume] in Ser um or PlasmaOrdered By: Va Reanna on 09-24-2023 Calcium [Mass/Vol] 8.8 mg/dL 8.6-10.3 [facility] Carbon dioxide, total [Moles /volume] in Serum or PlasmaOrdered By: Va Reanna on 09-24-2023 CO2 [Moles/Vol] 30.4 mmol/L 21.0-31.0 [facility] Chloride [Moles/volume] in S gretta or PlasmaOrdered By: Va Reanna on 09-24-2023 Chloride [Moles/Vol] 98 mmol/L 98-107 [facility] Complete Blood Count Auto Di ffon 09-24-2023 Basophils (Bld) [#/Vol] 0.1 10*3/uL Normal 0.0-0.2 [facility] Comment on above: Result Comment: PERF ORMED BY: [facility] [address] [place] [address] PATHOLOGIST CV/CVN CV TSC SYSTEM OPERATOR LEVY GILES M.D. Performed By: #### C BC, CMP #### [place] [address] [place] #### KAPPA, SPE, MELIDA SERUM #### [facility] , Basophils/100 WBC (Bld) 1.4 % Normal . T julianna [facility] Comment on above: Performed By: #### C BC, CMP #### [address] #### KAPPA, SPE, MELIDA SERUM #### [facility] , Eosinophils (Bld) [#/Vol] 0.1 10*3/uL Normal 0.0-0.45 [facility] Comment on above: Performed By: #### C BC, CMP #### [address] #### KAPPA, SPE, MELIDA SERUM #### [facility] , Eosinophils/100 WBC (Bld) 1.6 % Normal . [facility] Comment on above: Performed By: #### C BC, CMP #### [address] #### KAPPA, SPE, MELIDA SERUM #### [facility] , Erythrocyte distribution width (RBC) [Ratio] 13.8 % Normal 12.0-14.8 [facility] Comment on above: Performed By: #### C BC, CMP #### [place] [address] [place] #### KAPPA, SPE, MELIDA SERUM #### [facility] , Hematocrit (Bld) [Volume fraction] 30.9 % Low 38.8-50.0 [facility] Comment on above: Performed By: #### C BC, CMP #### [place] [address] [place] #### KAPPA, SPE, MELIDA SERUM #### [facility] , Hemoglobin (Bld) [Mass/Vol] 10.8 g/dL Low 13.0-17.0 [facility] Comment on above: Performed By: #### C BC, CMP #### [place] [address] [place] #### KAPPA, SPE, MELIDA SERUM #### [facility] , Lymphocytes (Bld) [#/Vol] 1.2 10*3/uL Normal 1.00-4.8 [facility] Comment on above: Performed By: #### C BC, CMP #### [place] [address] [place] #### KAPPA, SPE, MELIDA SERUM #### [facility] , Lymphocytes/100 WBC (Bld) 16.8 % Normal . [facility] Comment on above: Performed By: #### C BC, CMP #### [address] #### KAPPA, SPE, MELIDA SERUM #### [facility] , MCH (RBC) [Entitic mass] 31.5 pg Normal 27.5-35.2 [facility] Comment on above: Performed By: #### C BC, CMP #### [address] #### KAPPA, SPE, MELIDA SERUM #### [facility] , MCV (RBC) [Entitic vol] 90.1 fL Normal 83.5-101 [facility] Comment on above: Performed By: #### C BC, CMP #### [place] [address] [place] #### KAPPA, SPE, MELIDA SERUM #### [facility] , Mean Corpuscular HGB Conc 34.9 g/dL Normal 32.5-35.6 [facility] Comment on above: Performed By: #### C BC, CMP #### [place] [address] [place] #### KAPPA, SPE, MELIDA SERUM #### [facility] , Monocytes (Bld) [#/Vol] 0.3 10*3/uL Normal 0.0-0.8 [facility] Comment on above: Performed By: #### C BC, CMP #### [place] [address] [place] #### KAPPA, SPE, MELIDA SERUM #### [facility] , Monocytes/100 WBC (Bld) 4.6 % Normal . T [facility] Comment on above: Performed By: #### C BC, CMP #### [place] [address] [place] #### KAPPA, SPE, MELIDA SERUM #### [facility] , Neutrophils (Bld) [#/Vol] 5.3 10*3/uL Normal 1.8-7.7 [facility] Comment on above: Performed By: #### C BC, CMP #### [place] [address] [place] #### KAPPA, SPE, MELIDA SERUM #### [facility] , Neutrophils/100 WBC (Bld) 75.6 % Normal . [facility] Comment on above: Performed By: #### C BC, CMP #### [place] [address] [place] #### KAPPA, SPE, MELIDA SERUM #### [facility] , NRBC% 0.1 /100{WBC} Normal 0-0.5 [facility] Comment on above: Performed By: #### C BC, CMP #### [place] [address] [place] #### KAPPA, SPE, MELIDA SERUM #### [facility] , Platelet mean volume (Bld) [Entitic vol] 7.4 fL Normal 6.6-10.1 [facility] Comment on above: Performed By: #### C BC, CMP #### [place] [address] [place] #### KAPPA, SPE, MELIDA SERUM #### [facility] , Platelets (Bld) [#/Vol] 186 10*3/uL Normal 150-450 [facility] Comment on above: Performed By: #### C BC, CMP #### [place] [address] [place] #### KAPPA, SPE, MELIDA SERUM #### [facility] , RBC (Bld) [#/Vol] 3.43 10*6/uL Low 3.90-5.60 [facility] Comment on above: Performed By: #### C BC, CMP #### [place] [address] [place] #### KAPPA, SPE, MELIDA SERUM #### [facility] , WBC (Bld) [#/Vol] 7.0 10*3/uL Normal 4.1-10.5 [facility] Comment on above: Performed By: #### C BC, CMP #### [place] [address] [place] #### KAPPA, SPE, MELIDA SERUM #### [facility] , Comprehensive Metabolic Pane elvin 09-24-2023 Albumin [Mass/Vol] 3.6 g/dL Normal 3.5-5.7 [facility] Comment on above: Performed By: #### C BC, CMP #### [place] [address] [place] #### KAPPA, SPE, MELIDA SERUM #### [facility] , Albumin/Globulin [Mass ratio] 1.3 {ratio} Normal 0.7-1.7 [facility] Comment on above: Performed By: #### C BC, CMP #### [facility] [address] [place] [address] [place] #### KAPPA, SPE, MELIDA SERUM #### [facility] , ALP [Catalytic activity/Vol] 63 U/L Normal 34-104 [facility] Comment on above: Performed By: #### C BC, CMP #### [address] #### KAPPA, SPE, MELIDA SERUM #### [facility] , ALT [Catalytic activity/Vol] 11 U/L Normal 7-52 [facility] Comment on above: Performed By: #### C BC, CMP #### [address] #### KAPPA, SPE, MELIDA SERUM #### [facility] , Anion gap [Moles/Vol] 10.8 mmol/L Normal 6.0-15.0 [facility] e [facility] Comment on above: Performed By: #### C BC, CMP #### [address] #### KAPPA, SPE, MELIDA SERUM #### [facility] , AST [Catalytic activity/Vol] 12 U/L Low 13-39 [facility] Comment on above: Performed By: #### C BC, CMP #### [address] #### KAPPA, SPE, MELIDA SERUM #### [facility] , Bilirubin [Mass/Vol] 0.6 mg/dL Normal 0.3-1.0 [facility] Comment on above: Performed By: #### C BC, CMP #### [place] [address] [place] #### KAPPA, SPE, MELIDA SERUM #### [facility] , Calcium [Mass/Vol] 8.8 mg/dL Normal 8.6-10.3 [facility] Comment on above: Performed By: #### C BC, CMP #### [facility] [address] [place] [address] [place] #### KAPPA, SPE, MELIDA SERUM #### [facility] , Chloride [Moles/Vol] 98 mmol/L Normal 98-107 [facility] Comment on above: Performed By: #### C BC, CMP #### [place] [address] [place] #### KAPPA, SPE, MELIDA SERUM #### [facility] , CO2 [Moles/Vol] 30.4 mmol/L Normal 21.0-31.0 [facility] Comment on above: Performed By: #### C BC, CMP #### [place] [address] [place] #### KAPPA, SPE, MELIDA SERUM #### [facility] , Creatinine [Mass/Vol] 5.66 mg/dL High 0.70-1.30 [facility] Comment on above: Performed By: #### C BC, CMP #### [place] [address] [place] #### KAPPA, SPE, MELIDA SERUM #### [facility] , Creatinine Clr Calc Pharmacy 19.04 Normal [facility] Comment on above: Result Comment: PERF ORMED BY: [place] [id number] PATHOLOGIST CV/CVN CV TSC SYSTEM OPERATOR LEVY GILES M.D. Performed By: #### C BC, CMP #### [place] [address] [place] #### KAPPA, SPE, MELIDA SERUM #### [facility] , GFR/1.73 sq M.predicted MDRD (S/P/Bld) [Vol rate/Area] 12.341 mL/min/{1.73_m2} Normal [facility] Comment on above: Performed By: #### C BC, CMP #### [place] [address] [place] #### KAPPA, SPE, MELIDA SERUM #### [facility] , Globulin (S) [Mass/Vol] 2.7 g/dL Normal T [facility] Comment on above: Performed By: #### C BC, CMP #### [facility] [address] [place] [address] [place] #### KAPPA, SPE, MELIDA SERUM #### [facility] , Glucose [Mass/Vol] 175 mg/dL High 70-100 [facility] Comment on above: Result Comment: [facility] [place][note 2] Glucose Reference Range is dependent on time and content of last meal. Glucose of more than 200 mg/dL in a nonstressed, ambulatory subject supports the diagnosis of Diabetes Mellitus. ADA recommended reference range Performed By: #### C BC, CMP #### [place] [address] [place] #### KAPPA, SPE, MELIDA SERUM #### [facility] , Potassium [Moles/Vol] 4.2 mmol/L Normal 3.5-5.1 [facility] Comment on above: Performed By: #### C BC, CMP #### [address] #### KAPPA, SPE, MELIDA SERUM #### [facility] , Protein [Mass/Vol] 6.3 g/dL Low 6.4-8.9 [facility] Comment on above: Performed By: #### C BC, CMP #### [place] [address] [place] #### KAPPA, SPE, MELIDA SERUM #### [facility] , Sodium [Moles/Vol] 135 mmol/L Low 136-145 [facility] Comment on above: Performed By: #### C BC, CMP #### [place] [address] [place] #### KAPPA, SPE, MELIDA SERUM #### [facility] , Urea nitrogen [Mass/Vol] 35 mg/dL High 7-25 [facility] Comment on above: Performed By: #### C BC, CMP #### [place] [address] [place] #### KAPPA, SPE, MELIDA SERUM #### [facility] , Comprehensive metabolic pane elvin 09-24-2023 Albumin [Mass/Vol] 3.6 g/dL 3.5 - 5.7 g/dL [facility] Albumin/Globulin [Mass ratio] 1.3 {ratio} [facility] ALP [Catalytic activity/Vol] 63 U/L 34 - 104 U/L [facility] ALT [Catalytic activity/Vol] 11 U/L 7 - 52 U/L [facility] Anion gap [Moles/Vol] 10.8 mmol/L 6.0 - 15.0 NO [facility] AST [Catalytic activity/Vol] 12 U/L Low 13 - 39 U/L [facility] Bilirubin [Mass/Vol] 0.6 mg/dL 0.3 - 1 .0 mg/dL [facility] Calcium [Mass/Vol] 8.8 mg/dL 8.6 - 10. 3 mg/dL [facility] Chloride [Moles/Vol] 98 mmol/L 98 - 10 7 mmol/L [facility] CO2 [Moles/Vol] 30.4 mmol/L 21.0 - 31.0 mmol/L [facility] Creatinine (U) [Mass/Vol] 5.66 mg/dL High 0.70 - 1.30 mg/dL [facility] CREATININE CLR CALC PHARMACY 19.04 [facility] GFR/1.73 sq M.predicted MDRD (S/P/Bld) [Vol rate/Area] 12.341 mL/min/{1.73_m2} [facility] Globulin (S) [Mass/Vol] 2.7 g/dL [facility] Glucose [Mass/Vol] 175 mg/dL High 70 - 100 mg/dL [facility] Comment on above: Random Glucose Refer ence Range is dependent on time and content of last meal. Glucose of more than 200 mg/dL in a nonstressed, ambulatory subject supports the diagnosis of Diabetes Mellitus. ADA recommended reference range Interpretation and review of laboratory results Abnormal [facility] Potassium [Moles/Vol] 4.2 mmol/L 3.5 - 5.1 mmol/L [facility] Protein [Mass/Vol] 6.3 g/dL Low 6.4 - 8.9 g/dL [facility] Sodium [Moles/Vol] 135 mmol/L Low 136 - 145 mmol/L [facility] Urea nitrogen [Mass/Vol] 35 mg/dL High 7 - 25 mg/dL [facility] Creatinine [Mass/volume] in Serum or PlasmaOrdered By: Va Forte on 09-24-2023 Creatinine [Mass/Vol] 5.66 mg/dL 0.70-1.30 [facility] Eosinophils Auto (Bld) [#/Vo l]Ordered By: Va Forte on 09-24-2023 Eosinophils (Bld) [#/Vol] 0.1 10*3/uL 0.0-0.45 [facility] Eosinophils/100 WBC Auto (Bl d)Ordered By: Va Forte on 09-24-2023 Eosinophils/100 WBC (Bld) 1.6 % . [facility] Erythrocyte distribution wid th Auto (RBC) [Ratio]Ordered By: Va Forte on 09-24-2023 Erythrocyte distribution width (RBC) [Ratio] 13.8 % 12.0-14.8 [facility] Free K+L LT Chains, Qn, Son 09-24-2023 Free [place] Light Chains, S 189.5 mg/L High 3.3-19.4 [facility] Comment on above: Performed By: #### C BC, CMP #### [facility] [address] [place] [address] #### KAPPA, SPE, MELIDA SERUM #### [facility] , Free Lambda Light Chains, S 128.2 mg/L High 5.7-26.3 [facility] Comment on above: Performed By: #### C BC, CMP #### [facility] [address] [place] [address] [place] #### KAPPA, SPE, MELIDA SERUM #### [facility] , [place]/Lambda Ratio, S 1.48 Normal 0.26-1.65 [facility] Comment on above: Result Comment: Perf ormed at: [facility] - [facility] [address] [id number] Yardage Control Operator Forming: Pablito Alexander PhD, Phone: [phone] PERFORMED BY: [place] [id number] PATHOLOGIST CV/CVN CV TSC SYSTEM OPERATOR LEVY GILES M.D. Performed By: #### C BC, CMP #### [facility] [address] #### KAPPA, SPE, MELIDA SERUM #### [facility] , Globulin Calc (S) [Mass/Vol] Ordered By: Va Forte on 09-24-2023 Globulin (S) [Mass/Vol] 2.7 g/dL [facility] Glucose [Mass/volume] in Ser um or PlasmaOrdered By: Va Forte on 09-24-2023 Glucose [Mass/Vol] 175 mg/dL 70-100 [facility] Comment on above: ADA recommended refe rence rangeRandom Glucose Reference Range is dependent on time and content of last meal. Glucose of more than 200 mg/dL in a nonstressed, ambulatory subject supports the diagnosis of Diabetes Mellitus. Hematocrit Auto (Bld) [Volum e fraction]Ordered By: Va Forte on 09-24-2023 Hematocrit (Bld) [Volume fraction] 30.9 % 38.8-50.0 [facility] Hemoglobin [Mass/volume] in BloodOrdered By: Va Forte on 09-24-2023 Hemoglobin (Bld) [Mass/Vol] 10.8 g/dL 13.0-17.0 [facility] IgA [Mass/volume] in Serum o r PlasmaOrdered By: Va Forte on 09-24-2023 IgA [Mass/Vol] 312 mg/dL 90-386 [facility] IgG [Mass/volume] in Serum o r PlasmaOrdered By: Va Forte on 09-24-2023 IgG [Mass/Vol] 1183 mg/dL 603-1613 [facility] IgM [Mass/volume] in Serum o r PlasmaOrdered By: Va Forte on 09-24-2023 IgM [Mass/Vol] 166 mg/dL 20-172 [facility] Comment on above: Performed at: [address] [id number] Director: Pablito Alexander PhD, Phone: [phone] Immunofixation,Serumon 09-24 Immunofixation, Serum Normal . [facility] Comment on above: Result Comment: No m onoclonality detected. Performed By: #### C BC, CMP #### [facility] [address] [place] [address] [place] #### KAPPA, SPE, MELIDA SERUM #### [facility] , Immunoglobulin A, Serum 312 mg/dL Normal 90-386 [facility] Comment on above: Performed By: #### C BC, CMP #### [facility] [address] [place] [address] [place] #### KAPPA, SPE, MELIDA SERUM #### [facility] , Immunoglobulin G 1183 mg/dL Normal 603-1613 [facility] Comment on above: Performed By: #### C BC, CMP #### [facility] [address] [place] [address] [place] #### KAPPA, SPE, MELIDA SERUM #### [facility] , Immunoglobulin M, Serum 166 mg/dL Normal 20-172 [facility] Comment on above: Result Comment: Perf ormed at: [place] [facility] [address] [id number] Yardage Control Operator Forming: Pablito Alexander PhD, Phone: [phone] Performed By: #### C BC, CMP #### [place] [address] [place] #### KAPPA, SPE, MELIDA SERUM #### [facility] , Immunoglobulin light chains. kappa.free [Mass/volume] in SerumOrdered By: Va Forte on 09-24-2023 Immunoglobulin light chains.kappa.free (S) [Mass/Vol] 189.5 mg/L 3.3-19.4 [facility] Immunoglobulin light chains. kappa.free/Immunoglobulin light chains.lambda.free [MassOrdered By: Va Forte on 09-24-2023 Immunoglobulin light chains.kappa.free/Immun oglobulin light chains.lambda.free (S) [Mass ratio] 1.48 0.26-1.65 [facility] Comment on above: Performed at: [place] [facility] [address], [place] [id number] Director: Pablito Alexanedr PhD, Phone: [phone] Immunoglobulin light chains. lambda.free [Mass/volume] in Serum or PlasmaOrdered By: Va Forte on 09-24-2023 Immunoglobulin light chains.lambda.free [Mass/Vol] 128.2 mg/L 5.7-26.3 [facility] Leukocytes [#/volume] correc celena for nucleated erythrocytes in Blood by Automated counOrdered By: Va Forte on 09-24-2023 WBC corrected for nucl RBC Auto (Bld) [#/Vol] 7.0 10*3/uL 4.1-10.5 [facility] Lymphocytes Auto (Bld) [#/Vo l]Ordered By: Va Forte on 09-24-2023 Lymphocytes (Bld) [#/Vol] 1.2 10*3/uL 1.00-4.8 [facility] Lymphocytes/100 WBC Auto (Bl d)Ordered By: Va Forte on 09-24-2023 Lymphocytes/100 WBC (Bld) 16.8 % . [facility] MCH Auto (RBC) [Entitic mass ]Ordered By: Va Forte on 09-24-2023 MCH (RBC) [Entitic mass] 31.5 pg 27.5-35.2 [facility] MCHC Auto (RBC) [Mass/Vol]Or dered By: Va Forte on 09-24-2023 MCHC (RBC) [Mass/Vol] 34.9 g/dL 32.5-35.6 [facility] MCV Auto (RBC) [Entitic vol] Ordered By: Va Forte on 09-24-2023 MCV (RBC) [Entitic vol] 90.1 fL 83.5-101 F [facility] Monocytes Auto (Bld) [#/Vol] Ordered By: Va Forte on 09-24-2023 Monocytes (Bld) [#/Vol] 0.3 10*3/uL 0.0-0.8 [facility] Monocytes/100 WBC Auto (Bld) Ordered By: Va Forte on 09-24-2023 Monocytes/100 WBC (Bld) 4.6 % . [facility] Neutrophils Auto (Bld) [#/Vo l]Ordered By: Va Forte on 09-24-2023 Neutrophils (Bld) [#/Vol] 5.3 10*3/uL 1.8-7.7 [facility] Neutrophils/100 WBC Auto (Bl d)Ordered By: Va Forte on 09-24-2023 Neutrophils/100 WBC (Bld) 75.6 % . [facility] No Panel InformationOrdered By: Va Forte on 09-24-2023 Estimated GFR (CKD-EPI) 12.341 mL/Min [facility] Creatinine Clearance (Chem 19.04 [facility] Protein Electrophoresis [place] Not observed g/dL Not Observed [facility] Protein Electrophoresis Note See comment . [facility] Comment on above: Protein electrophore sis scan will follow via computer,mail, or neon electrician delivery.Performed at: [place] [id number] Director: Pablito Alexander PhD, Phone: [phone] Serum Immunofixation See comment . [facility] Comment on above: No monoclonality det ected. Nucleated erythrocytes [Pres ence] in Blood by Automated countOrdered By: Va Forte on 09-24-2023 Nucleated RBC Auto Ql (Bld) 0.1 /100{WBC} 0-0.5 [facility] Platelet mean volume Auto (B ld) [Entitic vol]Ordered By: Va Forte on 09-24-2023 Platelet mean volume (Bld) [Entitic vol] 7.4 fL 6.6-10.1 [facility] Platelets Auto (Bld) [#/Vol] Ordered By: Va Forte on 09-24-2023 Platelets (Bld) [#/Vol] 186 10*3/uL 150-450 [facility] Potassium [Moles/volume] in Serum or PlasmaOrdered By: Va Forte on 09-24-2023 Potassium [Moles/Vol] 4.2 mmol/L 3.5-5.1 [facility] Protein Electrophoresis, Ser umon 09-24-2023 Albumin [Mass/Vol] 3.7 g/dL Normal 2.9-4.4 [facility] Comment on above: Performed By: #### C BC, CMP #### [address] #### KAPPA, SPE, MELIDA SERUM #### [facility] , Qcgok-0-Jmwmapiz 0.2 g/dL Normal 0.0-0.4 [facility] Comment on above: Performed By: #### C BC, CMP #### [address] #### KAPPA, SPE, MELIDA SERUM #### [facility] , Qmhvz-3-Yzwmucnn 0.7 g/dL Normal 0.4-1.0 [facility] Comment on above: Performed By: #### C BC, CMP #### [address] #### KAPPA, SPE, MELIDA SERUM #### [facility] , Beta Globulin 0.8 g/dL Normal 0.7-1.3 [facility] Comment on above: Performed By: #### C BC, CMP #### [address] #### KAPPA, SPE, MELIDA SERUM #### [facility] , Gamma Globulin 1.2 g/dL Normal 0.4-1.8 [facility] Comment on above: Performed By: #### C BC, CMP #### [address] #### KAPPA, SPE, MELIDA SERUM #### [facility] , Globulin (S) [Mass/Vol] 2.8 g/dL Normal 2.2-3.9 [facility] Comment on above: Performed By: #### C BC, CMP #### [place] [address] [place] #### KAPPA, SPE, MELIDA SERUM #### [facility] , M-[place] Not Observed Normal Not Observed [facility] Comment on above: Performed By: #### C BC, CMP #### [facility] [address] [place] [address] [place] #### KAPPA, SPE, MELIDA SERUM #### [facility] , Protein [Mass/Vol] 6.5 g/dL Normal 6.0-8.5 [facility] Comment on above: Performed By: #### C BC, CMP #### [facility] [address] [place] [address] [place] #### KAPPA, SPE, MELIDA SERUM #### [facility] , SPE-Note Normal . [facility] Comment on above: Result Comment: Prot ein electrophoresis scan will follow via computer, mail, or neon electrician delivery. Performed at: [facility] [place] [id number] Yardage Control Operator Forming: Pablito Alexander PhD, Phone: [phone] Performed By: #### C BC, CMP #### [facility] [address] [place] [address] [place] #### KAPPA, SPE, MELIDA SERUM #### [facility] , Protein [Mass/volume] in Ser um or PlasmaOrdered By: Va Forte on 09-24-2023 Protein [Mass/Vol] 6.3 g/dL 6.4-8.9 [facility] Protein [Mass/Vol] 6.5 g/dL 6.0-8.5 [facility] RBC Auto (Bld) [#/Vol]Ordere d By: Va Forte on 09-24-2023 RBC (Bld) [#/Vol] 3.43 10*6/uL 3.90-5.60 [facility] Serum globulin measurement ( mass/volume)Ordered By: Va Forte on 09-24-2023 Globulin (S) [Mass/Vol] 2.8 g/dL 2.2-3.9 F [facility] Serum or plasma albumin/glob ulin mass ratioOrdered By: Va Forte on 09-24-2023 Albumin/Globulin [Mass ratio] 1.3 {ratio} 0.7-1.7 [facility] Serum or plasma alpha 1 glob ulin measurement by electrophoresis (mass/volume)Ordered By: Va Forte on 09-24-2023 Alpha 1 globulin Elph [Mass/Vol] 0.2 g/dL 0.0-0.4 [facility] Serum or plasma alpha 2 glob ulin measurement by electrophoresis (mass/volume)Ordered By: Va Forte on 09-24-2023 Alpha 2 globulin Elph [Mass/Vol] 0.7 g/dL 0.4-1.0 [facility] Serum or plasma anion gap de terminationOrdered By: Va Forte on 09-24-2023 Anion gap [Moles/Vol] 10.8 mmol/L 6.0-15.0 [facility] Serum or plasma beta globuli n measurement by electrophoresis (mass/volume)Ordered By: Va Forte on 09-24-2023 Beta globulin Elph [Mass/Vol] 0.8 g/dL 0.7-1.3 [facility] Serum or plasma gamma globul in measurement by electrophoresis (mass/volume)Ordered By: Va Forte on 09-24-2023 Gamma globulin Elph [Mass/Vol] 1.2 g/dL 0.4-1.8 [facility] Sodium [Moles/volume] in Ser um or PlasmaOrdered By: Va Forte on 09-24-2023 Sodium [Moles/Vol] 135 mmol/L 136-145 [facility] Urea nitrogen [Mass/volume] in Serum or PlasmaOrdered By: Va Forte on 09-24-2023 Urea nitrogen [Mass/Vol] 35 mg/dL 7-25 [facility] WBC Auto (Bld) [#/Vol]Ordere d By: Va Forte on 09-24-2023 WBC (Bld) [#/Vol] 7.0 10*3/uL 4.1-10.5 [facility] US AV Fistulaon 08-29-2023 US AV Fistula [facility] [address] Ultrasound Report Signed Patient: Yoel Werner MR#: [id number] : 1985 Acct:[id number] Age/Sex: 38 / M ADM Date: 08/29/23 Loc: [facility] Room: [facility] Attending Dr: Romain Mendoza MD Ordering Provider: Romain Mendoza MD Date of Service: 08/29/23 US/US AV Fistula: AVF Copies to: Romain Mendoza MD Left upper extremity fistula duplex evaluation. INDICATIONS: Dysfunctional AV fistula. FINDINGS: Left upper extremity: The left upper extremity AV fistula is patent. No thrombus or narrowing is identified. The fistula is less than 6 mm in depth throughout its length. The left subclavian and axillary veins are patent. Flow velocities are ideal, throughout the length the AV fistula. US/US AV Fistula Impression: Normal study. Impression dictated by: Romain Mendoza MD08/29/2023 1:40 PM Dictation Location: [place] [address] Tech: Leslie Marinelli Transcribed By: BRENNAN 08/29/23 1340 Dictated By: Romain Mendoza MD 08/29/23 1339 Signed By: 08/29/23 1340 Normal [facility] Activated partial thrombopla stin time (aPTT) in platelet poor plasma by coagulation aOrdered By: Law Cano on 08-18-2023 aPTT Coag (PPP) [Time] 37.6 s 25.1-36.5 [facility] Comment on above: A hematocrit value g reater than 55% may lead to inaccurate results in coagulation testing. Patients having hematocrit values >55% require a special collection tube for coagulation studies. Please contact the laboratory at [phone] for redraw instructions. Alanine aminotransferase [En zymatic activity/volume] in Serum or PlasmaOrdered By: Law Cano on 08-18-2023 ALT [Catalytic activity/Vol] 12 U/L 7-52 [facility] Albumin [Mass/volume] in Ser um or Plasma by Bromocresol green (BCG) dye binding methoOrdered By: Law Cano on 08-18-2023 Albumin BCG dye [Mass/Vol] 3.6 g/dL 3.5-5.7 [facility] Alkaline phosphatase [Enzyma tic activity/volume] in Serum or PlasmaOrdered By: Vargaskevin Elisajv on 08-18-2023 ALP [Catalytic activity/Vol] 61 U/L 34-104 [facility] Aspartate aminotransferase [ Enzymatic activity/volume] in Serum or PlasmaOrdered By: Vargaskevin Elisajv on 08-18-2023 AST [Catalytic activity/Vol] 13 U/L 13-39 [facility] Bilirubin.total [Mass/volume ] in Serum or PlasmaOrdered By: Lilliamcassy Elisajv on 08-18-2023 Bilirubin [Mass/Vol] 0.5 mg/dL 0.3-1.0 [facility] Calcium [Mass/volume] in Ser um or PlasmaOrdered By: Lilliamcassy Elisajv on 08-18-2023 Calcium [Mass/Vol] 8.6 mg/dL 8.6-10.3 [facility] Carbon dioxide, total [Moles /volume] in Serum or PlasmaOrdered By: Vargaskevin Elisajv on 08-18-2023 CO2 [Moles/Vol] 26.0 mmol/L 21.0-31.0 [facility] Chloride [Moles/volume] in S gretta or PlasmaOrdered By: Vargaskevin Elisajv on 08-18-2023 Chloride [Moles/Vol] 98 mmol/L 98-107 [facility] Coagulation Profileon 2022 aPTT Coag (Bld) [Time] 37.6 s High 25.1-36.5 Th e [facility] Comment on above: Result Comment: A he matocrit value greater than 55% may lead to inaccurate results in coagulation testing. Patients having hematocrit values >55% require a special collection tube for coagulation studies. Please contact the laboratory at [phone] for redraw instructions. PERFORMED BY: [place] [address] PATHOLOGIST CV/CVN CV TSC SYSTEM OPERATOR LEVY GILES M.D. Performed By: #### C BC, CMP #### [address] #### KAPPA, SPE, MELIDA SERUM #### [facility] , INR Coag (PPP) [Relative time] 1.1 {INR} Normal [facility] Comment on above: Result Comment: INR Therapeutic [...] 3 - 4.5 Performed By: #### C BC, CMP #### [place] [address] [place] #### KAPPA, SPE, MELIDA SERUM #### [facility] , PT Coag (PPP) [Time] 12.0 s Normal 9.0-12.9 [facility] Comment on above: Result Comment: A he matocrit value greater than 55% may lead to inaccurate results in coagulation testing. Patients having hematocrit values >55% require a special collection tube for coagulation studies. Please contact the laboratory at [phone] for redraw instructions. Performed By: #### C BC, CMP #### [place] [address] [place] #### KAPPA, SPE, MELIDA SERUM #### [facility] , Comprehensive Metabolic [facility]ane [facility] 08-18-2023 Albumin [Mass/Vol] 3.6 g/dL Normal 3.5-5.7 [facility] Comment on above: Performed By: #### C BC, CMP #### [place] [address] [place] #### KAPPA, SPE, MELIDA SERUM #### [facility] , Albumin/Globulin [Mass ratio] 1.4 {ratio} Normal [facility] Comment on above: Performed By: #### C BC, CMP #### [place] [address] [place] #### KAPPA, SPE, MELIDA SERUM #### [facility] , ALP [Catalytic activity/Vol] 61 U/L Normal 34-104 [facility] Comment on above: Performed By: #### C BC, CMP #### [place] [address] [place] #### KAPPA, SPE, MELIDA SERUM #### [facility] , ALT [Catalytic activity/Vol] 12 U/L Normal 7-52 [facility] Comment on above: Performed By: #### C BC, CMP #### [place] [address] [place] #### KAPPA, SPE, MELIDA SERUM #### [facility] , Anion gap [Moles/Vol] 12.0 mmol/L Normal 6.0-15.0 Th e [facility] Comment on above: Performed By: #### C BC, CMP #### [place] [address] [place] #### KAPPA, SPE, MELIDA SERUM #### [facility] , AST [Catalytic activity/Vol] 13 U/L Normal 13-39 [facility] Comment on above: Performed By: #### C BC, CMP #### [place] [address] [place] #### KAPPA, SPE, MELIDA SERUM #### [facility] , Bilirubin [Mass/Vol] 0.5 mg/dL Normal 0.3-1.0 [facility] Comment on above: Performed By: #### C BC, CMP #### [place] [address] [place] #### KAPPA, SPE, MELIDA SERUM #### [facility] , Calcium [Mass/Vol] 8.6 mg/dL Normal 8.6-10.3 [facility] Comment on above: Performed By: #### C BC, CMP #### [place] [address] [place] #### KAPPA, SPE, MELIDA SERUM #### [facility] , Chloride [Moles/Vol] 98 mmol/L Normal 98-107 [facility] Comment on above: Performed By: #### C BC, CMP #### [place] [address] [place] #### KAPPA, SPE, MELIDA SERUM #### [facility] , CO2 [Moles/Vol] 26.0 mmol/L Normal 21.0-31.0 [facility] Comment on above: Performed By: #### C BC, CMP #### [place] [address] [place] #### KAPPA, SPE, MELIDA SERUM #### [facility] , Creatinine [Mass/Vol] 6.43 mg/dL High 0.70-1.30 [facility] Comment on above: Performed By: #### C BC, CMP #### [place] [address] [place] #### KAPPA, SPE, MELIDA SERUM #### [facility] , Creatinine Clr Calc Pharmacy 15.78 Normal [facility] Comment on above: Performed By: #### C BC, CMP #### [place] [address] [place] #### KAPPA, SPE, MELIDA SERUM #### [facility] , GFR/1.73 sq M.predicted MDRD (S/P/Bld) [Vol rate/Area] 10.590 mL/min/{1.73_m2} Normal [facility] Comment on above: Performed By: #### C BC, CMP #### [facility] [address] [place] [address] [place] #### KAPPA, SPE, MELIDA SERUM #### [facility] , Globulin (S) [Mass/Vol] 2.6 g/dL Normal T [facility] Comment on above: Performed By: #### C BC, CMP #### [place] [address] [place] #### KAPPA, SPE, MELIDA SERUM #### [facility] , Glucose [Mass/Vol] 97 mg/dL Normal 70-100 [facility] Comment on above: Result Comment: [facility] [place][note 2] Glucose Reference Range is dependent on time and content of last meal. Glucose of more than 200 mg/dL in a nonstressed, ambulatory subject supports the diagnosis of Diabetes Mellitus. ADA recommended reference range Performed By: #### C BC, CMP #### [place] [address] [place] #### KAPPA, SPE, MELIDA SERUM #### [facility] , Potassium [Moles/Vol] 4.0 mmol/L Normal 3.5-5.1 [facility] Comment on above: Performed By: #### C BC, CMP #### [address] #### KAPPA, SPE, MELIDA SERUM #### [facility] , Protein [Mass/Vol] 6.2 g/dL Low 6.4-8.9 [facility] Comment on above: Performed By: #### C BC, CMP #### [address] #### KAPPA, SPE, MELIDA SERUM #### [facility] , Sodium [Moles/Vol] 132 mmol/L Low 136-145 [facility] Comment on above: Performed By: #### C BC, CMP #### [address] #### KAPPA, SPE, MELIDA SERUM #### [facility] , Urea nitrogen [Mass/Vol] 40 mg/dL High 7-25 [facility] Comment on above: Performed By: #### C BC, CMP #### [place] [address] [place] #### KAPPA, SPE, MELIDA SERUM #### [facility] , Creatinine [Mass/volume] in Serum or PlasmaOrdered By: Law Cano on 08-18-2023 Creatinine [Mass/Vol] 6.43 mg/dL 0.70-1.30 [facility] Erythrocyte distribution wid th Auto (RBC) [Ratio]Ordered By: Law Cano on 08-18-2023 Erythrocyte distribution width (RBC) [Ratio] 13.4 % 12.0-14.8 [facility] Globulin Calc (S) [Mass/Vol] Ordered By: Law Cano on 08-18-2023 Globulin (S) [Mass/Vol] 2.6 g/dL F [facility] Glucose Glucometer (BldC) [M ass/Vol]Ordered By: Jorge Mederos on 08-18-2023 Glucose [Mass/Vol] 192 mg/dL [facility] Comment on above: Random Glucose Refer ence Range is dependent on time and content of last meal. Glucose of more than 200 mg/dL in a nonstressed, ambulatory subject supports the diagnosis of Diabetes Mellitus. Glucose Poct Glucometerson 1 Glucose [Mass/Vol] 192 mg/dL Normal [facility] Comment on above: Result Comment: [place] Glucose Reference Range is dependent on time and content of last meal. Glucose of more than 200 mg/dL in a nonstressed, ambulatory subject supports the diagnosis of Diabetes Mellitus. PERFORMED BY: [facility] [address] [place] [address] PATHOLOGIST CV/CVN CV TSC SYSTEM OPERATOR LEVY GILES M.D. Performed By: #### G ASHLEY #### Point of Care testing , Glucose [Mass/volume] in Ser um or PlasmaOrdered By: Law Cano on 08-18-2023 Glucose [Mass/Vol] 97 mg/dL 70-100 [facility] Comment on above: ADA recommended refe rence rangeRandom Glucose Reference Range is dependent on time and content of last meal. Glucose of more than 200 mg/dL in a nonstressed, ambulatory subject supports the diagnosis of Diabetes Mellitus. Hematocrit Auto (Bld) [Volum e fraction]Ordered By: Law Cano on 08-18-2023 Hematocrit (Bld) [Volume fraction] 34.4 % 38.8-50.0 [facility] Hemoglobin [Mass/volume] in BloodOrdered By: Law Cano on 08-18-2023 Hemoglobin (Bld) [Mass/Vol] 12.0 g/dL 13.0-17.0 [facility] Hemogram CBC Without Diffon 08-18-2023 Erythrocyte distribution width (RBC) [Ratio] 13.4 % Normal 12.0-14.8 [facility] Comment on above: Performed By: #### C MP, CBCNO, HS TROP, MG, PP #### [address] Hematocrit (Bld) [Volume fraction] 34.4 % Low 38.8-50.0 [facility] Comment on above: Performed By: #### C MP, CBCNO, HS TROP, MG, PP #### [address] Hemoglobin (Bld) [Mass/Vol] 12.0 g/dL Low 13.0-17.0 [facility] Comment on above: Performed By: #### C MP, CBCNO, HS TROP, MG, PP #### [address] MCH (RBC) [Entitic mass] 31.4 pg Normal 27.5-35.2 [facility] Comment on above: Performed By: #### C MP, CBCNO, HS TROP, MG, PP #### [address] MCV (RBC) [Entitic vol] 90.3 fL Normal 83.5-101 T he [facility] Comment on above: Performed By: #### C MP, CBCNO, HS TROP, MG, PP #### [address] Mean Corpuscular HGB Conc 34.8 g/dL Normal 32.5-35.6 [facility] Comment on above: Performed By: #### C MP, CBCNO, HS TROP, MG, PP #### [address] Platelet mean volume (Bld) [Entitic vol] 8.6 fL Normal 6.6-10.1 [facility] Comment on above: Result Comment: PERF ORMED BY: [place] [address] PATHOLOGIST CV/CVN CV TSC SYSTEM OPERATOR LEVY GILES M.D. Performed By: #### C MP, CBCNO, HS TROP, MG, PP #### [address] Platelets (Bld) [#/Vol] 99 10*3/uL Low 150-450 T he [facility] Comment on above: Performed By: #### C MP, CBCNO, HS TROP, MG, PP #### [address] RBC (Bld) [#/Vol] 3.81 10*6/uL Low 3.90-5.60 [facility] Comment on above: Performed By: #### C MP, CBCNO, HS TROP, MG, PP #### [address] WBC (Bld) [#/Vol] 5.4 10*3/uL Normal 4.1-10.5 [facility] Comment on above: Performed By: #### C MP, CBCNO, HS TROP, MG, PP #### [address] INR in Platelet poor plasma by Coagulation assayOrdered By: Law Cano on 08-18-2023 INR Coag (PPP) [Relative time] 1.1 {INR} [facility] Comment on above: INR Therapeutic Rang e A) Pre- and Peroperative OAT started two weeks before surgery. NOT HIP SURGERY: 1.5 - 2.5 HIP SURGERY: 2 - 3B) Primary and secondary prevention of venous THROMBOSIS: 2 - 3C) Active venous thrombosis, pulmonary embolismand prevention of recurrent venous thrombosis: 2 - 3D) Prevention of arterial thromboembolismincluding patients with mechanical heart valves: 3 - 4.5 Leukocytes [#/volume] correc celena for nucleated erythrocytes in Blood by Automated counOrdered By: Law Cano on 08-18-2023 WBC corrected for nucl RBC Auto (Bld) [#/Vol] 5.4 10*3/uL 4.1-10.5 [facility] MCH Auto (RBC) [Entitic mass ]Ordered By: Law Cano on 08-18-2023 MCH (RBC) [Entitic mass] 31.4 pg 27.5-35.2 [facility] MCHC Auto (RBC) [Mass/Vol]Or dered By: Law Cano on 08-18-2023 MCHC (RBC) [Mass/Vol] 34.8 g/dL 32.5-35.6 [facility] MCV Auto (RBC) [Entitic vol] Ordered By: Law Cano on 08-18-2023 MCV (RBC) [Entitic vol] 90.3 fL 83.5-101 F [facility] Magnesiumon 08-18-2023 Magnesium [Mass/Vol] 1.9 mg/dL Normal 1.9-2.7 [facility] Comment on above: Result Comment: PERF ORMED BY: [place] [address] PATHOLOGIST CV/CVN CV TSC SYSTEM OPERATOR LEVY GILES M.D. Performed By: #### C BC, CMP #### [address] #### KAPPA, SPE, MELIDA SERUM #### [facility] , Magnesium [Mass/volume] in S gretta or PlasmaOrdered By: Law Cano on 08-18-2023 Magnesium [Mass/Vol] 1.9 mg/dL 1.9-2.7 [facility] No Panel InformationOrdered By: Law Cano on 08-18-2023 Estimated GFR (CKD-EPI) 10.590 mL/Min [facility] Creatinine Clearance (Chem 15.78 [facility] Platelet mean volume Auto (B ld) [Entitic vol]Ordered By: Law Cano on 08-18-2023 Platelet mean volume (Bld) [Entitic vol] 8.6 fL 6.6-10.1 [facility] Platelets Auto (Bld) [#/Vol] Ordered By: Law Nolbertoosei on 08-18-2023 Platelets (Bld) [#/Vol] 99 10*3/uL 150-450 [facility] Potassium [Moles/volume] in Serum or PlasmaOrdered By: Law Wassojv on 08-18-2023 Potassium [Moles/Vol] 4.0 mmol/L 3.5-5.1 [facility] Protein [Mass/volume] in Ser um or PlasmaOrdered By: Law Wassojv on 08-18-2023 Protein [Mass/Vol] 6.2 g/dL 6.4-8.9 [facility] Prothrombin time (PT)Ordered By: Law Nolbertoosei on 08-18-2023 PT Coag (PPP) [Time] 12.0 s 9.0-12.9 [facility] Comment on above: A hematocrit value g reater than 55% may lead to inaccurate results in coagulation testing. Patients having hematocrit values >55% require a special collection tube for coagulation studies. Please contact the laboratory at [phone] for redraw instructions. RBC Auto (Bld) [#/Vol]Ordere d By: Law Nolbertoosei on 08-18-2023 RBC (Bld) [#/Vol] 3.81 10*6/uL 3.90-5.60 [facility] Serum or plasma albumin/glob ulin mass ratioOrdered By: Law Nolbertosojv on 08-18-2023 Albumin/Globulin [Mass ratio] 1.4 {ratio} [facility] Serum or plasma anion gap de terminationOrdered By: Law Wassojv on 08-18-2023 Anion gap [Moles/Vol] 12.0 mmol/L 6.0-15.0 [facility] Sodium [Moles/volume] in Ser um or PlasmaOrdered By: Law Wassojv on 08-18-2023 Sodium [Moles/Vol] 132 mmol/L 136-145 [facility] Troponin I High Sensitivityo n 08-18-2023 Troponin I High Sensitivity 38.1 pg/mL High 0.0-20.0 [facility] Comment on above: Result Comment: PERF ORMED BY: [address] [place] [address] PATHOLOGIST CV/CVN CV TSC SYSTEM OPERATOR LEVY GILES M.D. Performed By: #### C BC, CMP #### [place] [address] [place] #### KAPPA, SPE, MELIDA SERUM #### [facility] , Troponin I.cardiac [Mass/vol ume] in Serum or Plasma by Detection limit <= 0.01 ng/Ordered By: Law Cano on 08-18-2023 Troponin I.cardiac DL <= 0.01 ng/mL [Mass/Vol] 38.1 pg/mL 0.0-20.0 [facility] Urea nitrogen [Mass/volume] in Serum or PlasmaOrdered By: Law Cano on 08-18-2023 Urea nitrogen [Mass/Vol] 40 mg/dL 7 [facility] Physician Referralon 023 Physician Referral [id number] Normal [facility] US AV Fistulaon 07-03-2023 US AV Fistula [facility] Main [place] [address] [place] [address] Ultrasound Report Signed Patient: Yoel Werner MR#: [id number] : 1985 Acct:[id number] Age/Sex: 38 / M ADM Date: 07/02/23 Loc: [facility] Room: Type: [facility] Attending Dr: Romain Mendoza MD Ordering Provider: Romain Mendoza MD Date of Service: 07/02/23 US/US AV Fistula: N18.6 Z99.2 Copies to: Romain Mendoza MD Left upper extremity fistula duplex evaluation INDICATIONS: Assessment for maturity. FINDINGS: Left upper extremity: The left upper extremity radiocephalic AV fistula is patent. Flow velocities are reduced at 3 41 cm/s. No thrombus or narrowing is identified. US/US AV Fistula IMPRESSION: As above Impression dictated by: Romain Mendoza MD07/03/2023 1:42 PM Dictation Location: [place] [address] Tech: Sara Laimaddy Transcribed By: BRENNAN 07/03/23 1342 Dictated By: Romain Mendoza MD 07/03/23 1341 Signed By: 07/03/23 1342 Normal [facility] US AV Fistulaon 06-14-2023 US AV Fistula [facility] Main [place] [id number] Ultrasound Report Signed Patient: Yoel Werner MR#: [id number] : 1985 Acct:[id number] Age/Sex: 38 / M ADM Date: 06/13/23 Loc: [facility] Room: Type: [facility] Attending Dr: Romain Mendoza MD Ordering Provider: Romain Mendoza MD Date of Service: 06/13/23 US/US AV Fistula: I82.898A Copies to: Romain Mendoza MD Left upper extremity fistula duplex evaluation INDICATIONS: Assessment for maturity FINDINGS: Left upper extremity: The fistula is patent. No narrowing or thrombus was identified. The fistula is less than 6 mm in depth. The left subclavian and axillary veins are patent. Some flow velocities are reduced at 341 cc/m. The does appear to be a competing cephalic venous tributary draining from the fistula in the forearm. US/US AV Fistula Impression: As above Impression dictated by: Romain Mendoza MD06/14/2023 10:00 AM Dictation Location: [place] [address] Tech: Leslie Marinelli Transcribed By: BRENNAN 06/14/23 1000 Dictated By: Romain Mendoza MD 06/14/23 0959 Signed By: 06/14/23 1000 Normal [facility] US AV Fistulaon 04-10-2023 US AV Fistula [facility] Main [address] [address] Ultrasound Report Signed Patient: Yoel Werner MR#: [id number] : 1985 Acct:[id number] Age/Sex: 38 / M ADM Date: 04/10/23 Loc: [facility] [facility] Room: Type: [facility] Attending Dr: Romain Mendoza MD Ordering Provider: Romain Mendoza MD Date of Service: 04/10/23 US/US AV Fistula: [id number] Copies to: Romain Mendoza MD Left Upper extremity fistula duplex evaluation Indications: Pain during dialysis with low flow Findings: The left upper extremity forearm AV fistula is patent with low flow velocities near 255 mL/m. Duplicated venous outflow is identified. The left subclavian vein is patent. The left axillary vein is patent. No thrombus was identified. US/US AV Fistula Impression: As above Impression dictated by: Romain Mendoza MD04/10/2023 2:06 PM Dictation Location: [place] [address] Tech: Korina Babbxler Transcribed By: BRENNAN 04/10/23 1406 Dictated By: Romain Mendoza MD 04/10/23 140 Signed By: 04/10/23 1406 Normal [facility] Alanine aminotransferase [En zymatic activity/volume] in Serum or PlasmaOrdered By: Haydee Lira on 03-12-2023 ALT [Catalytic activity/Vol] 13 U/L 7-52 [facility] Albumin [Mass/volume] in Ser um or PlasmaOrdered By: Haydee Lira on 03-12-2023 Albumin [Mass/Vol] 2.9 g/dL 2.9-4.4 [facility] Albumin [Mass/volume] in Ser um or Plasma by Bromocresol green (BCG) dye binding methoOrdered By: Haydee Lira on 03-12-2023 Albumin BCG dye [Mass/Vol] 3.4 g/dL 3.5-5.7 [facility] Albumin/Protein.total in 24 hour Urine by ElectrophoresisOrdered By: Haydee Lira on 03-12-2023 Albumin Elph (24H U) [Mass fraction] 58.9 % . [facility] Alkaline phosphatase [Enzyma tic activity/volume] in Serum or PlasmaOrdered By: Haydee Lira on 03-12-2023 ALP [Catalytic activity/Vol] 82 U/L 34-104 [facility] Aspartate aminotransferase [ Enzymatic activity/volume] in Serum or PlasmaOrdered By: Haydee Lira on 03-12-2023 AST [Catalytic activity/Vol] 12 U/L 13-39 [facility] Basophils Auto (Bld) [#/Vol] Ordered By: Haydee Lira on 03-12-2023 Basophils (Bld) [#/Vol] 0.1 10*3/uL 0.0-0.2 [facility] Basophils/100 WBC Auto (Bld) Ordered By: Haydee Lira on 03-12-2023 Basophils/100 WBC (Bld) 1.7 % . [facility] Bilirubin.total [Mass/volume ] in Serum or PlasmaOrdered By: Haydee Lira on 03-12-2023 Bilirubin [Mass/Vol] 0.3 mg/dL 0.3-1.0 [facility] Calcium [Mass/volume] in Ser um or PlasmaOrdered By: Haydee Lira on 03-12-2023 Calcium [Mass/Vol] 8.0 mg/dL 8.6-10.3 [facility] Carbon dioxide, total [Moles /volume] in Serum or PlasmaOrdered By: Haydee Lira on 03-12-2023 CO2 [Moles/Vol] 28.8 mmol/L 21.0-31.0 [facility] Chloride [Moles/volume] in S gretta or PlasmaOrdered By: Haydee Lira on 03-12-2023 Chloride [Moles/Vol] 99 mmol/L 98-107 [facility] Complete Blood Count Auto Di ffon 03-12-2023 Basophils (Bld) [#/Vol] 0.1 10*3/uL Normal 0.0-0.2 [facility] Comment on above: Result Comment: PERF ORMED BY: [place] [id number] PATHOLOGIST CV/CVN CV TSC SYSTEM OPERATOR LEVY GILES M.D. Performed By: #### C BC, CMP #### [address] #### KAPPA, SPE, MELIDA SERUM #### [facility] , Basophils/100 WBC (Bld) 1.7 % Normal . Karlee levine [facility] Comment on above: Performed By: #### C BC, CMP #### [place] [address] [place] #### KAPPA, SPE, MELIDA SERUM #### [facility] , Eosinophils (Bld) [#/Vol] 0.1 10*3/uL Normal 0.0-0.45 [facility] Comment on above: Performed By: #### C BC, CMP #### [place] [address] [place] #### KAPPA, SPE, MELIDA SERUM #### [facility] , Eosinophils/100 WBC (Bld) 2.3 % Normal . [facility] Comment on above: Performed By: #### C BC, CMP #### [place] [address] [place] #### KAPPA, SPE, MELIDA SERUM #### [facility] , Erythrocyte distribution width (RBC) [Ratio] 12.6 % Normal 12.0-14.8 [facility] Comment on above: Performed By: #### C BC, CMP #### [place] [address] [place] #### KAPPA, SPE, MELIDA SERUM #### [facility] , Hematocrit (Bld) [Volume fraction] 27.5 % Low 38.8-50.0 [facility] Comment on above: Performed By: #### C BC, CMP #### [place] [address] [place] #### KAPPA, SPE, MELIDA SERUM #### [facility] , Hemoglobin (Bld) [Mass/Vol] 9.5 g/dL Low 13.0-17.0 [facility] Comment on above: Performed By: #### C BC, CMP #### [address] #### KAPPA, SPE, MELIDA SERUM #### [facility] , Lymphocytes (Bld) [#/Vol] 1.2 10*3/uL Normal 1.00-4.8 [facility] Comment on above: Performed By: #### C BC, CMP #### [address] #### KAPPA, SPE, MELIDA SERUM #### [facility] , Lymphocytes/100 WBC (Bld) 19.5 % Normal . [facility] Comment on above: Performed By: #### C BC, CMP #### [address] #### KAPPA, SPE, MELIDA SERUM #### [facility] , MCH (RBC) [Entitic mass] 30.2 pg Normal 27.5-35.2 [facility] Comment on above: Performed By: #### C BC, CMP #### [address] #### KAPPA, SPE, MELIDA SERUM #### [facility] , MCV (RBC) [Entitic vol] 87.2 fL Normal 83.5-101 [facility] Comment on above: Performed By: #### C BC, CMP #### [place] [address] [place] #### KAPPA, SPE, MELIDA SERUM #### [facility] , Mean Corpuscular HGB Conc 34.6 g/dL Normal 32.5-35.6 [facility] Comment on above: Performed By: #### C BC, CMP #### [place] [address] [place] #### KAPPA, SPE, MELIDA SERUM #### [facility] , Monocytes (Bld) [#/Vol] 0.3 10*3/uL Normal 0.0-0.8 [facility] Comment on above: Performed By: #### C BC, CMP #### [place] [address] [place] #### KAPPA, SPE, MELIDA SERUM #### [facility] , Monocytes/100 WBC (Bld) 5.0 % Normal . [facility] Comment on above: Performed By: #### C BC, CMP #### [place] [address] [place] #### KAPPA, SPE, MELIDA SERUM #### [facility] , Neutrophils (Bld) [#/Vol] 4.4 10*3/uL Normal 1.8-7.7 [facility] Comment on above: Performed By: #### C BC, CMP #### [place] [address] [place] #### KAPPA, SPE, MELIDA SERUM #### [facility] , Neutrophils/100 WBC (Bld) 71.5 % Normal . [facility] Comment on above: Performed By: #### C BC, CMP #### [place] [address] [place] #### KAPPA, SPE, MELIDA SERUM #### [facility] , NRBC% 0.0 /100{WBC} Normal 0-0.5 [facility] Comment on above: Performed By: #### C BC, CMP #### [place] [address] [place] #### KAPPA, SPE, MELIDA SERUM #### [facility] , Platelet mean volume (Bld) [Entitic vol] 8.4 fL Normal 6.6-10.1 [facility] Comment on above: Performed By: #### C BC, CMP #### [place] [address] [place] #### KAPPA, SPE, MELIDA SERUM #### [facility] , Platelets (Bld) [#/Vol] 175 10*3/uL Normal 150-450 [facility] Comment on above: Performed By: #### C BC, CMP #### [facility] [address] [place] [address] [place] #### KAPPA, SPE, MELIDA SERUM #### [facility] , RBC (Bld) [#/Vol] 3.15 10*6/uL Low 3.90-5.60 [facility] Comment on above: Performed By: #### C BC, CMP #### [place] [address] [place] #### KAPPA, SPE, MELIDA SERUM #### [facility] , WBC (Bld) [#/Vol] 6.1 10*3/uL Normal 4.1-10.5 [facility] Comment on above: Performed By: #### C BC, CMP #### [place] [address] [place] #### KAPPA, SPE, MELIDA SERUM #### [facility] , Comprehensive Metabolic Pane elvin 03-12-2023 Albumin [Mass/Vol] 3.4 g/dL Low 3.5-5.7 [facility] Comment on above: Performed By: #### C BC, CMP #### [address] #### KAPPA, SPE, MELIDA SERUM #### [facility] , Albumin/Globulin [Mass ratio] 1.3 {ratio} Normal [facility] Comment on above: Performed By: #### C BC, CMP #### [facility] [address] [place] [address] [place] #### KAPPA, SPE, MELIDA SERUM #### [facility] , ALP [Catalytic activity/Vol] 82 U/L Normal 34-104 [facility] Comment on above: Performed By: #### C BC, CMP #### [facility] [address] [place] [address] [place] #### KAPPA, SPE, MELIDA SERUM #### [facility] , ALT [Catalytic activity/Vol] 13 U/L Normal 7-52 [facility] Comment on above: Performed By: #### C BC, CMP #### [address] #### KAPPA, SPE, MELIDA SERUM #### [facility] , Anion gap [Moles/Vol] 12.6 mmol/L Normal 6.0-15.[address] [facility] Comment on above: Performed By: #### C BC, CMP #### [place] [address] [place] #### KAPPA, SPE, MELIDA SERUM #### [facility] , AST [Catalytic activity/Vol] 12 U/L Low 13-39 [facility] Comment on above: Performed By: #### C BC, CMP #### [place] [address] [place] #### KAPPA, SPE, MELIDA SERUM #### [facility] , Bilirubin [Mass/Vol] 0.3 mg/dL Normal 0.3-1.0 [facility] Comment on above: Performed By: #### C BC, CMP #### [place] [address] [place] #### KAPPA, SPE, MELIDA SERUM #### [facility] , Calcium [Mass/Vol] 8.0 mg/dL Low 8.6-10.3 [facility] Comment on above: Performed By: #### C BC, CMP #### [facility] [address] [place] [address] [place] #### KAPPA, SPE, MELIDA SERUM #### [facility] , Chloride [Moles/Vol] 99 mmol/L Normal 98-107 [facility] Comment on above: Performed By: #### C BC, CMP #### [facility] [address] [place] [address] [place] #### KAPPA, SPE, MELIDA SERUM #### [facility] , CO2 [Moles/Vol] 28.8 mmol/L Normal 21.0-31.0 [facility] Comment on above: Performed By: #### C BC, CMP #### [place] [address] [place] #### KAPPA, SPE, MELIDA SERUM #### [facility] , Creatinine [Mass/Vol] 4.29 mg/dL High 0.70-1.30 [facility] Comment on above: Performed By: #### C BC, CMP #### [address] #### KAPPA, SPE, MELIDA SERUM #### [facility] , Creatinine Clr Calc Pharmacy 25.39 Normal [facility] Comment on above: Result Comment: PERF ORMED BY: [place] [id number] PATHOLOGIST CV/CVN CV TSC SYSTEM OPERATOR LEVY GILES M.D. Performed By: #### C BC, CMP #### [address] #### KAPPA, SPE, MELIDA SERUM #### [facility] , GFR/1.73 sq M.predicted MDRD (S/P/Bld) [Vol rate/Area] 17.210 mL/min/{1.73_m2} Normal [facility] Comment on above: Performed By: #### C BC, CMP #### [place] [address] [place] #### KAPPA, SPE, MELIDA SERUM #### [facility] , Globulin (S) [Mass/Vol] 2.6 g/dL Normal T [facility] Comment on above: Performed By: #### C BC, CMP #### [place] [address] [place] #### KAPPA, SPE, MELIDA SERUM #### [facility] , Glucose [Mass/Vol] 358 mg/dL High 70-100 [facility] Comment on above: Result Comment: [facility] [place][note 2] Glucose Reference Range is dependent on time and content of last meal. Glucose of more than 200 mg/dL in a nonstressed, ambulatory subject supports the diagnosis of Diabetes Mellitus. ADA recommended reference range Performed By: #### C BC, CMP #### [place] [address] [place] #### KAPPA, SPE, MELIDA SERUM #### [facility] , Potassium [Moles/Vol] 4.4 mmol/L Normal 3.5-5.1 [facility] Comment on above: Performed By: #### C BC, CMP #### [place] [address] [place] #### KAPPA, SPE, MELIDA SERUM #### [facility] , Protein [Mass/Vol] 6.0 g/dL Low 6.4-8.9 [facility] Comment on above: Performed By: #### C BC, CMP #### [place] [address] [place] #### KAPPA, SPE, MELIDA SERUM #### [facility] , Sodium [Moles/Vol] 136 mmol/L Normal 136-145 [facility] Comment on above: Performed By: #### C BC, CMP #### [place] [address] [place] #### KAPPA, SPE, MELIDA SERUM #### [facility] , Urea nitrogen [Mass/Vol] 43 mg/dL High 7-25 [facility] Comment on above: Performed By: #### C BC, CMP #### [facility] [address] [place] [address] [place] #### KAPPA, SPE, MELIDA SERUM #### [facility] , Creatinine [Mass/volume] in Serum or PlasmaOrdered By: Haydee Lira on 03-12-2023 Creatinine [Mass/Vol] 4.29 mg/dL 0.70-1.30 [facility] Eosinophils Auto (Bld) [#/Vo l]Ordered By: Haydee Lira on 03-12-2023 Eosinophils (Bld) [#/Vol] 0.1 10*3/uL 0.0-0.45 [facility] Eosinophils/100 WBC Auto (Bl d)Ordered By: Haydee Lira on 03-12-2023 Eosinophils/100 WBC (Bld) 2.3 % . [facility] Erythrocyte distribution wid th Auto (RBC) [Ratio]Ordered By: Haydee Lira on 03-12-2023 Erythrocyte distribution width (RBC) [Ratio] 12.6 % 12.0-14.8 [facility] Fr Salineno/Lambda LTC Urineon 03-12-2023 Free Salineno Light Chains, Urine 206.55 mg/L High 1.17-86.46 [facility] Comment on above: Performed By: #### C BC, CMP #### [address] #### KAPPA, SPE, MELIDA SERUM #### [facility] , Free Lambda Lt Chains, Urine 68.24 mg/L High 0.27-15.21 [facility] Comment on above: Performed By: #### C BC, CMP #### [place] [address] [place] #### KAPPA, SPE, MELIDA SERUM #### [facility] , Salineno/Lambda Ratio 24 Hr Ur 3.03 Normal 1.83-14.26 [facility] Comment on above: Result Comment: Perf ormed at: BN - [facility] [address] [id number] Yardage Control Operator Forming: Saulo Araujo MD, Phone: [phone] PERFORMED BY: [place] [id number] PATHOLOGIST CV/CVN CV TSC SYSTEM OPERATOR LEVY GILES M.D. Performed By: #### C BC, CMP #### [place] [address] [place] #### KAPPA, SPE, MELIDA SERUM #### [facility] , Free K+L LT Chains, Wai Son 03-12-2023 Free [place] Light Chains, S 166.7 mg/L High 3.3-19.4 [facility] Comment on above: Performed By: #### G LULS #### Point of Care testing , Free Lambda Light Chains, S 108.0 mg/L High 5.7-26.3 [facility] Comment on above: Performed By: #### G LULS #### Point of Care testing , Salineno/Lambda Ratio, S 1.54 Normal 0.26-1.65 [facility] Comment on above: Result Comment: Perf ormed at: - [facility] [address] [id number] Yardage Control Operator Forming: Pablito Alexander PhD, Phone: [phone] PERFORMED BY: [place] [id number] PATHOLOGIST CV/CVN CV TSC SYSTEM OPERATOR LEVY GILES M.D. Performed By: #### G LULS #### Point of Care testing , Gamma globulin/Protein.total in 24 hour Urine by ElectrophoresisOrdered By: Haydee Lira on 03-12-2023 Gamma globulin Elph (24H U) [Mass fraction] 14.7 % . [facility] Globulin Calc (S) [Mass/Vol] Ordered By: Haydee Lira on 03-12-2023 Globulin (S) [Mass/Vol] 2.6 g/dL [facility] Glucose [Mass/volume] in Ser um or PlasmaOrdered By: Haydee Lira on 03-12-2023 Glucose [Mass/Vol] 358 mg/dL 70-100 [facility] Comment on above: ADA recommended refe rence rangeRandom Glucose Reference Range is dependent on time and content of last meal. Glucose of more than 200 mg/dL in a nonstressed, ambulatory subject supports the diagnosis of Diabetes Mellitus. Hematocrit Auto (Bld) [Volum e fraction]Ordered By: Haydee Lira on 07-25-2023 Hematocrit (Bld) [Volume fraction] 27.5 % 38.8-50.0 [facility] Hemoglobin [Mass/volume] in BloodOrdered By: Haydee Lira on 03-12-2023 Hemoglobin (Bld) [Mass/Vol] 9.5 g/dL 13.0-17.0 [facility] IgA [Mass/volume] in Serum o r PlasmaOrdered By: Haydee Lira on 03-12-2023 IgA [Mass/Vol] 307 mg/dL 90-386 [facility] IgG [Mass/volume] in Serum o r PlasmaOrdered By: Haydee Lira on 03-12-2023 IgG [Mass/Vol] 1059 mg/dL 603-1613 [facility] IgM [Mass/volume] in Serum o r PlasmaOrdered By: Haydee Lira on 03-12-2023 IgM [Mass/Vol] 160 mg/dL 20-172 [facility] Immunofixation,Serumon 03-12 Immunofixation, Serum Comment: Normal . [facility] Comment on above: Result Comment: Pres ence of monoclonal protein is unclear at this time. Suggest repeat in 3 to 6 months if clinically indicated. Performed By: #### G LULS #### Point of Care testing , Immunoglobulin A, Serum 307 mg/dL Normal 90-386 [facility] Comment on above: Performed By: #### G LULS #### Point of Care testing , Immunoglobulin G 1059 mg/dL Normal 603-1613 [facility] Comment on above: Performed By: #### G LULS #### Point of Care testing , Immunoglobulin M, Serum 160 mg/dL Normal 20-172 [facility] Comment on above: Performed By: #### G LULS #### Point of Care testing , Immunoglobulin light chains. kappa.free [Mass/volume] in SerumOrdered By: Haydee Lira on 03-12-2023 Immunoglobulin light chains.kappa.free (S) [Mass/Vol] 166.7 mg/L 3.3-19.4 [facility] Immunoglobulin light chains. kappa.free/Immunoglobulin light chains.lambda.free [MassOrdered By: Haydee Lira on 03-12-2023 Immunoglobulin light chains.kappa.free/Immun oglobulin light chains.lambda.free (S) [Mass ratio] 1.54 0.26-1.65 [facility] Comment on above: Performed at: [facility] [address] [id number] Director: Pablito Alexander PhD, Phone: [phone] Immunoglobulin light chains. lambda.free [Mass/volume] in Serum or PlasmaOrdered By: Haydee Lira on 03-12-2023 Immunoglobulin light chains.lambda.free [Mass/Vol] 108.0 mg/L 5.7-26.3 [facility] Salineno light chains.free [Mas s/volume] in UrineOrdered By: Jorje Small on 03-12-2023 Immunoglobulin light chains.kappa.free (U) [Mass/Vol] 206.55 mg/L 1.17-86.46 [facility] [place] light chains.free/[place] light chains.free [Mass Ratio] in UrineOrdered By: Jorje Small on 03-12-2023 Immunoglobulin light chains.kappa.free/Immun oglobulin light chains.lambda.free (U) [Mass ratio] 3.03 1.83-14.26 [facility] Comment on above: Performed at: [facility] [address] [id number] Director: Saulo Araujo MD, Phone: [phone] Lambda light chains.free [Ma ss/volume] in UrineOrdered By: Jorje Small on 03-12-2023 Immunoglobulin light chains.lambda.free (U) [Mass/Vol] 68.24 mg/L 0.27-15.21 [facility] Leukocytes [#/volume] correc celena for nucleated erythrocytes in Blood by Automated counOrdered By: Haydee Lira on 03-12-2023 WBC corrected for nucl RBC Auto (Bld) [#/Vol] 6.1 10*3/uL 4.1-10.5 [facility] Lymphocytes Auto (Bld) [#/Vo l]Ordered By: Haydee Lira on 03-12-2023 Lymphocytes (Bld) [#/Vol] 1.2 10*3/uL 1.00-4.8 [facility] Lymphocytes/100 WBC Auto (Bl d)Ordered By: Haydee Lira on 03-12-2023 Lymphocytes/100 WBC (Bld) 19.5 % . [facility] MCH Auto (RBC) [Entitic mass ]Ordered By: Haydee Lira on 03-12-2023 MCH (RBC) [Entitic mass] 30.2 pg 27.5-35.2 [facility] MCHC Auto (RBC) [Mass/Vol]Or dered By: Haydee Lira on 03-12-2023 MCHC (RBC) [Mass/Vol] 34.6 g/dL 32.5-35.6 [facility] MCV Auto (RBC) [Entitic vol] Ordered By: Haydee Lira on 03-12-2023 MCV (RBC) [Entitic vol] 87.2 fL 83.5-101 [facility] Monocytes Auto (Bld) [#/Vol] Ordered By: Haydee Lira on 03-12-2023 Monocytes (Bld) [#/Vol] 0.3 10*3/uL 0.0-0.8 [facility] Monocytes/100 WBC Auto (Bld) Ordered By: Haydee Lira on 03-12-2023 Monocytes/100 WBC (Bld) 5.0 % . [facility] Neutrophils Auto (Bld) [#/Vo l]Ordered By: Haydee Lira on 03-12-2023 Neutrophils (Bld) [#/Vol] 4.4 10*3/uL 1.8-7.7 [facility] Neutrophils/100 WBC Auto (Bl d)Ordered By: Haydee Lira on 03-12-2023 Neutrophils/100 WBC (Bld) 71.5 % . [facility] No Panel InformationOrdered By: Haydee Lira on 03-12-2023 Estimated GFR (CKD-EPI) 17.210 mL/Min [facility] Creatinine Clearance (Chem 25.39 [facility] Protein Electrophoresis M-[place] Not observed g/dL Not Observed [facility] Protein Electrophoresis Note See comment . [facility] Comment on above: Protein electrophore sis scan will follow via computer,mail, or neon electrician delivery.Performed at: [employer] [id number] Director: Pablito Alexander PhD, Phone: [phone] Serum Immunofixation Comment: . [facility] Comment on above: Presence of monoclon al protein is unclear at this time. Suggestrepeat in 3 to 6 months if clinically indicated. Urine Random Prot Electrophor Note See comment . [facility] Comment on above: Protein electrophore sis scan will follow via computer,mail, or neon electrician delivery.Performed at: [email or web address] [address] [id number] Director: Pablito Alexander PhD, Phone: [phone] Nucleated erythrocytes [Pres ence] in Blood by Automated countOrdered By: Haydee Lira on 03-12-2023 Nucleated RBC Auto Ql (Bld) 0.0 /100{WBC} 0-0.5 [facility] Platelet mean volume Auto (B ld) [Entitic vol]Ordered By: Haydee Lira on 03-12-2023 Platelet mean volume (Bld) [Entitic vol] 8.4 fL 6.6-10.1 [facility] Platelets Auto (Bld) [#/Vol] Ordered By: Haydee Lira on 03-12-2023 Platelets (Bld) [#/Vol] 175 10*3/uL 150-450 [facility] Potassium [Moles/volume] in Serum or PlasmaOrdered By: Haydee Lira on 03-12-2023 Potassium [Moles/Vol] 4.4 mmol/L 3.5-5.1 [facility] Protein Electro, Random Urin gamal 03-12-2023 Albumin, Urine 58.9 % Normal . [facility] Comment on above: Performed By: #### C BC, CMP #### [facility] [address] [place] [address] #### KAPPA, SPE, MELIDA SERUM #### [facility] , [id number]-[id number], Urine 7.3 % Normal . Karlee julianna [facility] Comment on above: Performed By: #### C BC, CMP #### [address] #### KAPPA, SPE, MELIDA SERUM #### [facility] , [id number]-9-[id number], Urine 6.5 % Normal . Karlee levine [facility] Comment on above: Performed By: #### C BC, CMP #### [address] #### KAPPA, SPE, MELIDA SERUM #### [facility] , Beta Globulin, Urine 12.5 % Normal . [facility] Comment on above: Performed By: #### C BC, CMP #### [place] [address] [place] #### KAPPA, SPE, MELIDA SERUM #### [facility] , Gamma Globulin, Urine 14.7 % Normal . [facility] Comment on above: Performed By: #### C BC, CMP #### [place] [address] [place] #### KAPPA, SPE, MELIDA SERUM #### [facility] , M-[place] % Not Observed Normal Not Observed [facility] Comment on above: Performed By: #### C BC, CMP #### [address] #### KAPPA, SPE, MELIDA SERUM #### [facility] , Please Note: Normal . [facility] Comment on above: Result Comment: Prot ein electrophoresis scan will follow via computer, mail, or neon electrician delivery. Performed at: [facility] [id number] Yardage Control Operator Forming: Pablito Alexander PhD, Phone: [phone] PERFORMED BY: [place] [id number] PATHOLOGIST CV/CVN CV TSC SYSTEM OPERATOR LEVY GILES M.D. Performed By: #### C BC, CMP #### [address] #### KAPPA, SPE, MELIDA SERUM #### [facility] , Protein (U) [Mass/Vol] 468.8 mg/dL Normal Not Estab. [facility] [facility] Comment on above: Result Comment: Resu lts confirmed on dilution. Performed By: #### C BC, CMP #### [place] [address] [place] #### KAPPA, SPE, MELIDA SERUM #### [facility] , Protein Electrophoresis, Ser umon 03-12-2023 Albumin [Mass/Vol] 2.9 g/dL Normal 2.9-4.4 [facility] Comment on above: Performed By: #### G LULS #### Point of Care testing , Albumin/Globulin [Mass ratio] 1.0 {ratio} Normal 0.7-1.7 [facility] Comment on above: Performed By: #### G LULS #### Point of Care testing , Yxddd-5-Igpeghqn 0.2 g/dL Normal 0.0-0.4 [facility] Comment on above: Performed By: #### G LULS #### Point of Care testing , Psftj-3-Lukouaxm 0.7 g/dL Normal 0.4-1.0 [facility] Comment on above: Performed By: #### G LULS #### Point of Care testing , Beta Globulin 0.8 g/dL Normal 0.7-1.3 [facility] Comment on above: Performed By: #### G LULS #### Point of Care testing , Gamma Globulin 1.1 g/dL Normal 0.4-1.8 [facility] Comment on above: Performed By: #### G LULS #### Point of Care testing , Globulin (S) [Mass/Vol] 2.8 g/dL Normal 2.2-3.9 [facility] Comment on above: Performed By: #### G LULS #### Point of Care testing , M-[place] Not Observed Normal Not Observed [facility] Comment on above: Performed By: #### G LULS #### Point of Care testing , Protein [Mass/Vol] 5.7 g/dL Low 6.0-8.5 [facility] Comment on above: Performed By: #### G LULS #### Point of Care testing , SPE-Note Normal . [facility] Comment on above: Result Comment: Prot ein electrophoresis scan will follow via computer, mail, or neon electrician delivery. Performed at: [facility] [address] [id number] Yardage Control Operator Forming: Pablito Alexander PhD, Phone: [phone] Performed By: #### G LULS #### Point of Care testing , Protein [Mass/volume] in Ser um or PlasmaOrdered By: Haydee Lira on 03-12-2023 Protein [Mass/Vol] 6.0 g/dL 6.4-8.9 [facility] Protein [Mass/Vol] 5.7 g/dL 6.0-8.5 [facility] Protein [Mass/volume] in Uri neOrdered By: Haydee Lira on 03-12-2023 Protein (U) [Mass/Vol] 468.8 mg/dL Not Estab. F [facility] Comment on above: Results confirmed on dilution. Protein.monoclonal/Protein.t otal in 24 hour Urine by ElectrophoresisOrdered By: Haydee Lira on 03-12-2023 Protein.monoclonal Elph (24H U) [Mass fraction] Not observed % Not Observed [facility] RBC Auto (Bld) [#/Vol]Ordere d By: Haydee Lira on 03-12-2023 RBC (Bld) [#/Vol] 3.15 10*6/uL 3.90-5.60 [facility] Serum globulin measurement ( mass/volume)Ordered By: Haydee Lira on 03-12-2023 Globulin (S) [Mass/Vol] 2.8 g/dL 2.2-3.9 [facility] Serum or plasma albumin/glob ulin mass ratioOrdered By: Haydee Lira on 03-12-2023 Albumin/Globulin [Mass ratio] 1.3 {ratio} [facility] Albumin/Globulin [Mass ratio] 1.0 {ratio} 0.7-1.7 [facility] Serum or plasma alpha 1 glob ulin measurement by electrophoresis (mass/volume)Ordered By: Haydee Lira on 03-12-2023 Alpha 1 globulin Elph [Mass/Vol] 0.2 g/dL 0.0-0.4 [facility] Serum or plasma alpha 2 glob ulin measurement by electrophoresis (mass/volume)Ordered By: Haydee Lira on 03-12-2023 Alpha 2 globulin Elph [Mass/Vol] 0.7 g/dL 0.4-1.0 [facility] Serum or plasma anion gap de terminationOrdered By: Haydee Lira on 03-12-2023 Anion gap [Moles/Vol] 12.6 mmol/L 6.0-15.0 [facility] Serum or plasma beta globuli n measurement by electrophoresis (mass/volume)Ordered By: Haydee Lira on 03-12-2023 Beta globulin Elph [Mass/Vol] 0.8 g/dL 0.7-1.3 [facility] Serum or plasma gamma globul in measurement by electrophoresis (mass/volume)Ordered By: Haydee Lira on 03-12-2023 Gamma globulin Elph [Mass/Vol] 1.1 g/dL 0.4-1.8 [facility] Sodium [Moles/volume] in Ser um or PlasmaOrdered By: Haydee Lira on 03-12-2023 Sodium [Moles/Vol] 136 mmol/L 136-145 [facility] Urea nitrogen [Mass/volume] in Serum or PlasmaOrdered By: Haydee Lira on 03-12-2023 Urea nitrogen [Mass/Vol] 43 mg/dL 03-12 [facility] Urine alpha 1 globulin/total protein by electrophoresisOrdered By: Haydee Lira on 03-12-2023 Alpha 1 globulin Elph (U) [Mass fraction] 7.3 % . [facility] Urine alpha 2 globulin/total protein ratio by electrophoresisOrdered By: Haydee Lira on 03-12-2023 Alpha 2 globulin Elph (U) [Mass fraction] 6.5 % . [facility] Urine beta globulin measurem ent by electrophoresis (mass/volume)Ordered By: Haydee Lira on 03-12-2023 Beta globulin Elph (U) [Mass/Vol] 12.5 % . [facility] WBC Auto (Bld) [#/Vol]Ordere d By: Haydee Lira on 03-12-2023 WBC (Bld) [#/Vol] 6.1 10*3/uL 4.1-10.5 [facility] Albumin [Mass/volume] in Ser um or Plasma by Bromocresol green (BCG) dye binding methoOrdered By: Angel Mejía on 02-27-2023 Albumin BCG dye [Mass/Vol] 3.3 g/dL 3.5-5.7 [facility] Calcium [Mass/volume] in Ser um or PlasmaOrdered By: Angel Mejía on 02-27-2023 Calcium [Mass/Vol] 7.3 mg/dL 8.6-10.3 [facility] Carbon dioxide, total [Moles /volume] in Serum or PlasmaOrdered By: Angel Mejía on 02-27-2023 CO2 [Moles/Vol] 20.1 mmol/L 21.0-31.0 [facility] Chloride [Moles/volume] in S gretta or PlasmaOrdered By: Angel Mejía on 02-27-2023 Chloride [Moles/Vol] 107 mmol/L 98-107 [facility] Creatinine [Mass/volume] in Serum or PlasmaOrdered By: Angel Mejía on 02-27-2023 Creatinine [Mass/Vol] 6.60 mg/dL 0.70-1.30 [facility] Erythrocyte distribution wid th Auto (RBC) [Ratio]Ordered By: Angel Mejía on 02-27-2023 Erythrocyte distribution width (RBC) [Ratio] 13.2 % 12.0-14.8 [facility] Ferritinon 02-27-2023 Ferritin [Mass/Vol] 73.2 ng/mL Normal 23.9-336.2 [facility] Comment on above: Order Comment: Reaso n for Exam Chronic kidney disease, stage 5;Lauri hy kid w cr kid I-IV;Hyp Performed By: #### C BC, CMP #### [facility] [address] #### KAPPA, SPE, MELIDA SERUM #### [facility] , Ferritin [Mass/volume] in Se rum or PlasmaOrdered By: Angel Mejía on 02-27-2023 Ferritin [Mass/Vol] 73.2 ng/mL 23.9-336.2 [facility] Glucose [Mass/volume] in Ser um or PlasmaOrdered By: Angel Mejía on 02-27-2023 Glucose [Mass/Vol] 173 mg/dL 70-100 [facility] Comment on above: ADA recommended refe rence rangeRandom Glucose Reference Range is dependent on time and content of last meal. Glucose of more than 200 mg/dL in a nonstressed, ambulatory subject supports the diagnosis of Diabetes Mellitus. Hematocrit Auto (Bld) [Volum e fraction]Ordered By: Angel Mejía on 02-27-2023 Hematocrit (Bld) [Volume fraction] 28.0 % 38.8-50.0 [facility] Hemoglobin [Mass/volume] in BloodOrdered By: Angel Mejía on 02-27-2023 Hemoglobin (Bld) [Mass/Vol] 9.3 g/dL 13.0-17.0 [facility] Hemogram CBC Without Diffon 02-27-2023 Erythrocyte distribution width (RBC) [Ratio] 13.2 % Normal 12.0-14.8 [facility] Comment on above: Order Comment: Reaso n for Exam Chronic kidney disease, stage 5;Lauri hy kid w cr kid I-IV;Hyp Performed By: #### G LULS #### Point of Care testing , Hematocrit (Bld) [Volume fraction] 28.0 % Low 38.8-50.0 [facility] Comment on above: Order Comment: Reaso n for Exam Chronic kidney disease, stage 5;Lauri hy kid w cr kid I-IV;Hyp Performed By: #### G LULS #### Point of Care testing , Hemoglobin (Bld) [Mass/Vol] 9.3 g/dL Low 13.0-17.0 [facility] Comment on above: Order Comment: Reaso n for Exam Chronic kidney disease, stage 5;Lauri hy kid w cr kid I-IV;Hyp Performed By: #### G LULS #### Point of Care testing , MCH (RBC) [Entitic mass] 29.0 pg Normal 27.5-35.2 [facility] Comment on above: Order Comment: Reaso n for Exam Chronic kidney disease, stage 5;Lauri hy kid w cr kid I-IV;Hyp Performed By: #### G LULS #### Point of Care testing , MCV (RBC) [Entitic vol] 86.9 fL Normal 83.5-101 [facility] Comment on above: Order Comment: Reaso n for Exam Chronic kidney disease, stage 5;Lauri hy kid w cr kid I-IV;Hyp Performed By: #### G LULS #### Point of Care testing , Mean Corpuscular HGB Conc 33.4 g/dL Normal 32.5-35.6 [facility] Comment on above: Order Comment: Reaso n for Exam Chronic kidney disease, stage 5;Lauri hy kid w cr kid I-IV;Hyp Performed By: #### G LULS #### Point of Care testing , Platelet mean volume (Bld) [Entitic vol] 8.7 fL Normal 6.6-10.1 [facility] Comment on above: Order Comment: Reaso n for Exam Chronic kidney disease, stage 5;Lauri hy kid w cr kid I-IV;Hyp Result Comment: PERF ORMED BY: [facility] [place] [address] PATHOLOGIST CV/CVN CV TSC SYSTEM OPERATOR LEVY GILES M.D. Performed By: #### G LULS #### Point of Care testing , Platelets (Bld) [#/Vol] 134 10*3/uL Low 150-450 [facility] Comment on above: Order Comment: Reaso n for Exam Chronic kidney disease, stage 5;Lauri hy kid w cr kid I-IV;Hyp Performed By: #### G LULS #### Point of Care testing , RBC (Bld) [#/Vol] 3.22 10*6/uL Low 3.90-5.60 [facility] Comment on above: Order Comment: Reaso n for Exam Chronic kidney disease, stage 5;Lauri hy kid w cr kid I-IV;Hyp Performed By: #### G LULS #### Point of Care testing , WBC (Bld) [#/Vol] 5.9 10*3/uL Normal 4.1-10.5 [facility] Comment on above: Order Comment: Reaso n for Exam Chronic kidney disease, stage 5;Lauri hy kid w cr kid I-IV;Hyp Performed By: #### G LULS #### Point of Care testing , Hepatitis Acute Panelon 02-16 HBsAg Screen Negative Normal Negative [facility] Comment on above: Order Comment: Reaso n for Exam Chronic kidney disease, stage 5;Lauri hy kid w cr kid I-IV;Hyp Performed By: #### C BC, CMP #### [place] [address] [place] #### KAPPA, SPE, MELIDA SERUM #### [facility] , Hepatitis A Antibody IgM Negative Normal Negative [facility] Comment on above: Order Comment: Reaso n for Exam Chronic kidney disease, stage 5;Lauri hy kid w cr kid I-IV;Hyp Performed By: #### C BC, CMP #### [facility] [address] [place] [address] [place] #### KAPPA, SPE, MELIDA SERUM #### [facility] , Hepatitis B Core Antibody IgM Negative Normal Negative [facility] Comment on above: Order Comment: Reaso n for Exam Chronic kidney disease, stage 5;Lauri hy kid w cr kid I-IV;Hyp Performed By: #### C BC, CMP #### [facility] [address] [place] [address] [place] #### KAPPA, SPE, MELIDA SERUM #### [facility] , Hepatitis C Virus Antibody Non-Reactive Normal Non Reactive [facility] Comment on above: Order Comment: Reaso n for Exam Chronic kidney disease, stage 5;Lauri hy kid w cr kid I-IV;Hyp Performed By: #### C BC, CMP #### [place] [address] [place] #### KAPPA, SPE, MELIDA SERUM #### [facility] , Interpretation Hepatitis C Normal . [facility] Comment on above: Order Comment: Reaso n for Exam Chronic kidney disease, stage 5;Lauri hy kid w cr kid I-IV;Hyp Result Comment: Not infected with HCV unless early or acute infection is suspected (which may be delayed in an immunocompromised individual), or other evidence exists to indicate HCV infection. Performed at: [facility] [place] [id number] Yardage Control Operator Forming: Pablito Alexander PhD, Phone: [phone] PERFORMED BY: [place] [id number] PATHOLOGIST CV/CVN CV TSC SYSTEM OPERATOR LEVY GILES M.D. Performed By: #### C BC, CMP #### [address] #### KAPPA, SPE, MELIDA SERUM #### [facility] , Hepatitis B virus surface Ag [Presence] in Serum or Plasma by ImmunoassayOrdered By: Angel Mejía on 02-27-2023 HBV surface Ag IA Ql Negative Negative [facility] Hepatitis C virus IgG Ab [Pr esence] in Serum or Plasma by ImmunoassayOrdered By: Angel Mejía on 02-27-2023 HCV IgG IA Ql Non-Reactive Non Reactive [facility] Hepatitis C virus RNA [Units /volume] (viral load) in Serum or Plasma by HAO with probOrdered By: Angel Mejía on 02-27-2023 HCV RNA HAO+probe Qn N/A [facility] Hepatitis C virus RNA [log u nits/volume] (viral load) in Serum or Plasma by HAO withOrdered By: Angel Mejía on 02-27-2023 HCV RNA HAO+probe [Log units/Vol] N/A [facility] Iron [Mass/volume] in Serum or PlasmaOrdered By: Angel Mejía on 02-27-2023 Iron [Mass/Vol] 64 ug/dL 50-212 [facility] Iron and TIBC Profileon 02-16 % Iron Saturation 28.6 % Normal 20-50 [facility] Comment on above: Order Comment: Reaso n for Exam Chronic kidney disease, stage 5;Lauri hy kid w cr kid I-IV;Hyp Performed By: #### C BC, CMP #### [place] [address] [place] #### KAPPA, SPE, MELIDA SERUM #### [facility] , Iron [Mass/Vol] 64 ug/dL Normal 50-212 [facility] Comment on above: Order Comment: Reaso n for Exam Chronic kidney disease, stage 5;Lauri hy kid w cr kid I-IV;Hyp Performed By: #### C BC, CMP #### [facility] [address] [place] [address] [place] #### KAPPA, SPE, MELIDA SERUM #### [facility] , Total Iron Binding Capacity 224 ug/dL Low 255-450 [facility] Comment on above: Order Comment: Reaso n for Exam Chronic kidney disease, stage 5;Lauri hy kid w cr kid I-IV;Hyp Performed By: #### C BC, CMP #### [facility] [address] [place], [place] [id number] [place] #### KAPPA, SPE, MELIDA SERUM #### [facility] , Transferrin [Mass/Vol] 160 mg/dL Low 203-362 [facility] Comment on above: Order Comment: Reaso n for Exam Chronic kidney disease, stage 5;Lauri hy kid w cr kid I-IV;Hyp Performed By: #### C BC, CMP #### [facility] [address] [place], [place] [id number] [place] #### KAPPA, SPE, MELIDA SERUM #### [facility] , Iron binding capacity [Mass/ volume] in Serum or PlasmaOrdered By: Angel Mejía on 02-27-2023 Iron binding capacity [Mass/Vol] 224 ug/dL 255-450 [facility] Iron saturation [Mass Fracti on] in Serum or PlasmaOrdered By: Angel Mejía on 02-27-2023 Iron saturation [Mass fraction] 28.6 % 20-50 [facility] Leukocytes [#/volume] correc celena for nucleated erythrocytes in Blood by Automated counOrdered By: Angel Mejía on 02-27-2023 WBC corrected for nucl RBC Auto (Bld) [#/Vol] 5.9 10*3/uL 4.1-10.5 [facility] MCH Auto (RBC) [Entitic mass ]Ordered By: Angel Mejía on 02-27-2023 MCH (RBC) [Entitic mass] 29.0 pg 27.5-35.2 [facility] MCHC Auto (RBC) [Mass/Vol]Or dered By: Angel Mejía on 02-27-2023 MCHC (RBC) [Mass/Vol] 33.4 g/dL 32.5-35.6 [facility] MCV Auto (RBC) [Entitic vol] Ordered By: Angel Mejía on 02-27-2023 MCV (RBC) [Entitic vol] 86.9 fL 83.5-101 F [facility] Magnesiumon 02-27-2023 Magnesium [Mass/Vol] 1.7 mg/dL Low 1.9-2.7 [facility] Comment on above: Order Comment: Reaso n for Exam Chronic kidney disease, stage 5;Lauri hy kid w cr kid I-IV;Hyp Performed By: #### C BC, CMP #### [facility] [address] [place] [address] [place] #### KAPPA, SPE, MELIDA SERUM #### [facility] , Magnesium [Mass/volume] in S gretta or PlasmaOrdered By: Angel Mejía on 02-27-2023 Magnesium [Mass/Vol] 1.7 mg/dL 1.9-2.7 [facility] No Panel InformationOrdered By: Angel Mejía on 02-27-2023 Estimated GFR (CKD-EPI) 10.328 mL/Min [facility] Hepatitis A IgM Antibody Negative Negative [facility] Hepatitis B Core IgM Antibody Negative Negative [facility] Hepatitis C Interpretation See comment . [facility] Comment on above: Not infected with HC V unless early or acute infection issuspected (which may be delayed in an immunocompromisedindividual), or other evidence exists to indicate HCVinfection.Performed at: - [address] [id number] Director: Pablito Alexander PhD, Phone: [phone] Hepatitis C RNA Quantitative N/A [facility] Creatinine Clearance (Chem N/A [facility] Parathyrin.intact [Mass/volu me] in Serum or PlasmaOrdered By: Angel Mejía on 02-27-2023 Parathyrin.intact [Mass/Vol] 713.5 pg/mL [facility] Parathyroid Hormone Intacton 02-27-2023 Parathyroid Hormone Intact 713.5 pg/mL High [facility] Comment on above: Order Comment: Reaso n for Exam Chronic kidney disease, stage 5;Lauri hy kid w cr kid I-IV;Hyp Result Comment: PERF ORMED BY: [place] [id number] PATHOLOGIST CV/CVN CV TSC SYSTEM OPERATOR LEVY GILES M.D. Performed By: #### C BC, CMP #### [facility] [address] [place] [address] [place] #### KAPPA, SPE, MELIDA SERUM #### [facility] , Phosphate [Mass/volume] in S gretta or PlasmaOrdered By: Angel Mejía on 02-27-2023 Phosphate [Mass/Vol] 7.2 mg/dL 3.7-7.2 [facility] Platelet mean volume Auto (B ld) [Entitic vol]Ordered By: Angel Mejía on 02-27-2023 Platelet mean volume (Bld) [Entitic vol] 8.7 fL 6.6-10.1 [facility] Platelets Auto (Bld) [#/Vol] Ordered By: Angel Mejía on 02-27-2023 Platelets (Bld) [#/Vol] 134 10*3/uL 150-450 [facility] Potassium [Moles/volume] in Serum or PlasmaOrdered By: Angel Mejía on 02-27-2023 Potassium [Moles/Vol] 5.1 mmol/L 3.5-5.1 [facility] RBC Auto (Bld) [#/Vol]Ordere d By: Angel Mejía on 02-27-2023 RBC (Bld) [#/Vol] 3.22 10*6/uL 3.90-5.60 [facility] Renal Function Panelon 02-27 Albumin [Mass/Vol] 3.3 g/dL Low 3.5-5.7 [facility] Comment on above: Order Comment: Reaso n for Exam Chronic kidney disease, stage 5;Lauri hy kid w cr kid I-IV;Hyp Performed By: #### C BC, CMP #### [facility] [address] [place] [address] [place] #### KAPPA, SPE, MELIDA SERUM #### [facility] , Anion gap [Moles/Vol] 13.0 mmol/L Normal 6.0-15.0 [facility] Comment on above: Order Comment: Reaso n for Exam Chronic kidney disease, stage 5;Lauri hy kid w cr kid I-IV;Hyp Performed By: #### C BC, CMP #### [facility] [address] [place] [address] [place] #### KAPPA, SPE, MELIDA SERUM #### [facility] , Calcium [Mass/Vol] 7.3 mg/dL Low 8.6-10.3 [facility] Comment on above: Order Comment: Reaso n for Exam Chronic kidney disease, stage 5;Lauri hy kid w cr kid I-IV;Hyp Performed By: #### C BC, CMP #### [facility] [address] [place] [address] [place] #### KAPPA, SPE, MELIDA SERUM #### [facility] , Chloride [Moles/Vol] 107 mmol/L Normal 98-107 [facility] Comment on above: Order Comment: Reaso n for Exam Chronic kidney disease, stage 5;Lauri hy kid w cr kid I-IV;Hyp Performed By: #### C BC, CMP #### [place] [address] [place] #### KAPPA, SPE, MELIDA SERUM #### [facility] , CO2 [Moles/Vol] 20.1 mmol/L Low 21.0-31.0 [facility] Comment on above: Order Comment: Reaso n for Exam Chronic kidney disease, stage 5;Lauri hy kid w cr kid I-IV;Hyp Performed By: #### C BC, CMP #### [place] [address] [place] #### KAPPA, SPE, MELIDA SERUM #### [facility] , Creatinine [Mass/Vol] 6.60 mg/dL High 0.70-1.30 [facility] Comment on above: Order Comment: Reaso n for Exam Chronic kidney disease, stage 5;Lauri hy kid w cr kid I-IV;Hyp Performed By: #### C BC, CMP #### [place] [address] [place] #### KAPPA, SPE, MELIDA SERUM #### [facility] , GFR/1.73 sq M.predicted MDRD (S/P/Bld) [Vol rate/Area] 10.328 mL/min/{1.73_m2} Normal [facility] Comment on above: Order Comment: Reaso n for Exam Chronic kidney disease, stage 5;Lauri hy kid w cr kid I-IV;Hyp Performed By: #### C BC, CMP #### [place] [address] [place] #### KAPPA, SPE, MELIDA SERUM #### [facility] , Glucose [Mass/Vol] 173 mg/dL High 70-100 [facility] Comment on above: Order Comment: Reaso n for Exam Chronic kidney disease, stage 5;Lauri hy kid w cr kid I-IV;Hyp Result Comment: [place] Glucose Reference Range is dependent on time and content of last meal. Glucose of more than 200 mg/dL in a nonstressed, ambulatory subject supports the diagnosis of Diabetes Mellitus. ADA recommended reference range Performed By: #### C BC, CMP #### [place] [address] [place] #### KAPPA, SPE, MELIDA SERUM #### [facility] , Phosphate [Mass/Vol] 7.2 mg/dL Normal 3.7-7.2 [facility] Comment on above: Order Comment: Reaso n for Exam Chronic kidney disease, stage 5;Lauri hy kid w cr kid I-IV;Hyp Performed By: #### C BC, CMP #### [address] #### KAPPA, SPE, MELIDA SERUM #### [facility] , Potassium [Moles/Vol] 5.1 mmol/L Normal 3.5-5.1 [facility] Comment on above: Order Comment: Reaso n for Exam Chronic kidney disease, stage 5;Lauri hy kid w cr kid I-IV;Hyp Performed By: #### C BC, CMP #### [place] [address] [place] #### KAPPA, SPE, MELIDA SERUM #### [facility] , Sodium [Moles/Vol] 135 mmol/L Low 136-145 [facility] Comment on above: Order Comment: Reaso n for Exam Chronic kidney disease, stage 5;Lauri hy kid w cr kid I-IV;Hyp Performed By: #### C BC, CMP #### [facility] [address] [place] [address] [place] #### KAPPA, SPE, MELIDA SERUM #### [facility] , Urea nitrogen [Mass/Vol] 78 mg/dL High 7-25 [facility] Comment on above: Order Comment: Reaso n for Exam Chronic kidney disease, stage 5;Lauri hy kid w cr kid I-IV;Hyp Performed By: #### C BC, CMP #### [facility] [address] [place], [place] [id number] [place] #### KAPPA, SPE, MELIDA SERUM #### [facility] , Serum or plasma anion gap de terminationOrdered By: Angel Kym on 02-27-2023 Anion gap [Moles/Vol] 13.0 mmol/L 6.0-15.0 [facility] Sodium [Moles/volume] in Ser um or PlasmaOrdered By: Angel Kym on 02-27-2023 Sodium [Moles/Vol] 135 mmol/L 136-145 [facility] Transferrin [Mass/volume] in Serum or PlasmaOrdered By: Angel Kym on 02-27-2023 Transferrin [Mass/Vol] 160 mg/dL 203-362 [facility] US AV Fistulaon 02-27-2023 US AV Fistula [facility] [place] [address] [place] [address] Ultrasound Report Signed Patient: Yoel Werner MR#: [id number] : 1985 Acct:[id number] Age/Sex: 37 / M ADM Date: 02/27/23 Loc: [facility] Room: Type: [facility] Attending Dr: Romain Mendoza MD Ordering Provider: Romain Mendoza MD Date of Service: 02/27/23 US/US AV Fistula: N18.6 Copies to: Romain Mendoza MD Patient left autologous arterial venous fistula Indication for study: Follow-up of left fistula after revision PROCEDURE: Color-flow duplex scanning is used to interrogate the length of the patient's left Deo fistula. The overall size of the vein is adequate from 6 to 9 mm. On the forearm flows are estimated at between 800 and 1300 cc/min. The the vein is less than 6 mm from the skin and no focal stenosis was noted. US/US AV Fistula IMPRESSION: This fistula should be adequate for hemodialysis at this time given its size and flow. Impression dictated by: Alec Aguilar M.D.02/27/2023 3:45 PM Dictation Location: [place] [address] Tech: Allyson Callaway Transcribed By: BRENNAN 02/27/23 154 Dictated By: Alec Aguilar MD 02/27/231542 Signed By: 02/27/23 154 Normal [facility] Urea nitrogen [Mass/volume] in Serum or PlasmaOrdered By: Angel Mejía on 02-27-2023 Urea nitrogen [Mass/Vol] 78 mg/dL 7-25 [facility] Vitamin D 25 Hydroxy Totalon 02-27-2023 Vitamin D 25 Hydroxy Total 23.7 ng/mL Low 30-100 [facility] Comment on above: Order Comment: Reaso n for Exam Chronic kidney disease, stage 5;Lauri hy kid w cr kid I-IV;Hyp Result Comment: KAMALA MIN D STATUS 25(OH)VITAMIN D RANGE (ng/mL) Deficient <20 Insufficient 20 to <30 Sufficient 30 to 100 Reference: Chemo Campbell, Sergey SIMENTAL, et al. Evaluation,treatment, and prevention of vitamin D deficiency; an Endocrine Society clinical practice guideline. JCEM. 2010; 96(7):1911-30. PERFORMED BY: [place] [id number] PATHOLOGIST CV/CVN CV TSC SYSTEM OPERATOR LEVY GILES M.D. Performed By: #### C BC, CMP #### [address] #### KAPPA, SPE, MELIDA SERUM #### [facility] , Vitamin D+Metabolites [Mass/ volume] in Serum or PlasmaOrdered By: Angel Mejía on 02-27-2023 Vitamin D+Metabolites [Mass/Vol] 23.7 ng/mL 30-100 [facility] Comment on above: VITAMIN D STATUS 25( OH)VITAMIN D RANGE (ng/mL) Deficient <20 Insufficient 20 to <30Sufficient 30 to 100Reference: Chemo Campbell, Sergey SIMENTAL, et al. Evaluation,treatment, and prevention of vitamin D deficiency; an Endocrine Society clinical practice guideline. JCEM. 2010; 96(7):1911-30. Office Visit (Cardiology)on 02-26-2023 Follow-up visit Diagnoses/Problems [...] disease), CHF (congestive heart failure), History of VT (myocardial infarction) Renew: Aspirin 81 MG Oral [...] we can help. You may also call [phone]; Status:Complete - Retrospective Authorization; Done: [id number] Tobacco Use Screening; Status:Complete; Done: [id number] Patient Instructions Please bring all medicines, vitamins, [...] drug-eluting stents. He has had previous anterior VT with revascularization of the LAD. He has [...] No alcohol use Vitals Vital Signs Recorded: [id number] 09:21AM Heart Rate78, R Radial Ciyvoumt219, RUE, Sitting Khputloeu68, RUE, Sitting Height6 ft Cboagz508 lb BMI Mxlmycodpj73.43 kg/m2 BSA Calculated1.93 Tobacco Usea) Yes Patient [...] . Psychiatr (more content not included)... Normal [facility] Tobacco Screening.on 023 Fall risk assessment c) Not medically indicated -[facility] marianne 250 DO Work Phone: Tobacco use status CP a) Yes M -[facility] marianne 250 DO Work Phone: Tobacco Screening. Yes -[facility] marianne 250 DO Work Phone: ECG 12 lead ECGon 02-04-2023 ECG 12 lead ECG [facility] [address] Electrocardiograph Report Signed Patient: Yoel Werner MR#: [id number] : 1985 Acct:[id number] Age/Sex: 37 / M ADM Date: 02/04/23 Loc: Room: Type: [facility] Attending Dr: Denilson Gomez DO Ordering Provider: Denilson Gomez DO Date of Service: 02/04/23 ECG/ECG 12 lead ECG: Post Angioplasty Procedure Copies to: Test Reason : Blood Pressure : / mmHG Vent. Rate : 072 BPM Atrial Rate : 072 BPM P-R Int : 168 ms QRS Dur : 096 ms QT Int : 412 ms P-R-T Axes : 062 065 170 degrees QTc Int : 451 ms Normal sinus rhythm Septal infarct , age undetermined Abnormal ECG No previous ECGs available Confirmed by CHRIS BRIGGS DO ([id number]) on 02/05/2023 6:29:51 PM Referred By: NO Electronically Signed By:CHRIS BRIGGS DO Transcribed By: MUS Signed By Chris Briggs DO 02/05 1829 Normal [facility] Activated partial thrombopla stin time (aPTT) in platelet poor plasma by coagulation aOrdered By: Denilson Gomez on 01-31-2023 aPTT Coag (PPP) [Time] 40.7 s 25.1-36.5 [facility] Basophils Auto (Bld) [#/Vol] Ordered By: Denilson Gomez on 01-31-2023 Basophils (Bld) [#/Vol] 0.1 10*3/uL 0.0-0.2 [facility] Basophils/100 WBC Auto (Bld) Ordered By: Denilson Gomez on 01-31-2023 Basophils/100 WBC (Bld) 1.7 % . [facility] Blood Urea Nitrogenon 2022 Urea nitrogen [Mass/Vol] 71 mg/dL High 7-25 [facility] Comment on above: Performed By: #### C BC, CMP #### [facility] [address] [place] [address] #### KAPPA, SPE, MELIDA SERUM #### [facility] , Carbon dioxide, total [Moles /volume] in Serum or PlasmaOrdered By: Denilson Gomez on 01-31-2023 CO2 [Moles/Vol] 22.2 mmol/L 21.0-31.0 [facility] Chloride [Moles/volume] in S gretta or PlasmaOrdered By: Denilson Gomez on 01-31-2023 Chloride [Moles/Vol] 106 mmol/L 98-107 [facility] Cholesterol [Mass/volume] in Serum or PlasmaOrdered By: Denilson Gomez on 01-31-2023 Cholesterol [Mass/Vol] 144 mg/dL 140-200 [facility] Comment on above: Chol less than 200 m g/dl low riskChol 201-239 mg/dl borderline riskChol 240 mg/dl and greater high risk Cholesterol in LDL Calc [Mas s/Vol]Ordered By: Denilson Gomez on 01-31-2023 Cholesterol in LDL [Mass/Vol] 95 mg/dL 0-100 [facility] Comment on above: LDL ATP III CLASSIFI CATIONLDL less than 100 mg/dL OptimalLDL 100-129 mg/dL Near or above optimalLDL 130-159 mg/dL Borderline highLDL 160-189 mg/dL HighLDL greater than 189 mg/dL Very high Cholesterol in VLDL Calc [Ma ss/Vol]Ordered By: Denilson Gomez on 01-31-2023 Cholesterol in VLDL [Mass/Vol] 20 mg/dL [facility] Coagulation Profileon 2022 aPTT Coag (Bld) [Time] 40.7 s High 25.1-36.5 [facility] Comment on above: Result Comment: PERF ORMED BY: [place] [id number] PATHOLOGIST CV/CVN CV TSC SYSTEM OPERATOR LEVY GILES M.D. Performed By: #### C NEREIDA, CMP #### [address] #### KAPPA, SPE, MELIDA SERUM #### [facility] , INR Coag (PPP) [Relative time] 1.1 {INR} Normal [facility] Comment on above: Result Comment: INR Therapeutic [...] 3 - 4.5 Performed By: #### C BC, CMP #### [facility] [address] [place] [address] [place] #### KAPPA, SPE, MELIDA SERUM #### [facility] , PT Coag (PPP) [Time] 12.7 s Normal 9.0-12.9 [facility] Comment on above: Performed By: #### C BC, CMP #### [place] [address] [place] #### KAPPA, SPE, MELIDA SERUM #### [facility] , Complete Blood Count Auto Di ffon 01-31-2023 Basophils (Bld) [#/Vol] 0.1 10*3/uL Normal 0.0-0.2 [facility] Comment on above: Result Comment: PERF ORMED BY: [place] [id number] PATHOLOGIST CV/CVN CV TSC SYSTEM OPERATOR LEVY GILES M.D. Performed By: #### C BC, CMP #### [place] [address] [place] #### KAPPA, SPE, MELIDA SERUM #### [facility] , Basophils/100 WBC (Bld) 1.7 % Normal . T julianna [facility] Comment on above: Performed By: #### C BC, CMP #### [address] #### KAPPA, SPE, MELIDA SERUM #### [facility] , Eosinophils (Bld) [#/Vol] 0.2 10*3/uL Normal 0.0-0.45 [facility] Comment on above: Performed By: #### C BC, CMP #### [address] #### KAPPA, SPE, MELIDA SERUM #### [facility] , Eosinophils/100 WBC (Bld) 2.9 % Normal . [facility] Comment on above: Performed By: #### C BC, CMP #### [place] [address] [place] #### KAPPA, SPE, MELIDA SERUM #### [facility] , Erythrocyte distribution width (RBC) [Ratio] 12.9 % Normal 12.0-14.8 [facility] Comment on above: Performed By: #### C BC, CMP #### [place] [address] [place] #### KAPPA, SPE, MELIDA SERUM #### [facility] , Hematocrit (Bld) [Volume fraction] 26.0 % Low 38.8-50.0 [facility] Comment on above: Performed By: #### C BC, CMP #### [place] [address] [place] #### KAPPA, SPE, MELIDA SERUM #### [facility] , Hemoglobin (Bld) [Mass/Vol] 9.1 g/dL Low 13.0-17.0 [facility] Comment on above: Performed By: #### C BC, CMP #### [place] [address] [place] #### KAPPA, SPE, MELIDA SERUM #### [facility] , Lymphocytes (Bld) [#/Vol] 1.0 10*3/uL Normal 1.00-4.8 [facility] Comment on above: Performed By: #### C BC, CMP #### [address] #### KAPPA, SPE, MELIDA SERUM #### [facility] , Lymphocytes/100 WBC (Bld) 16.1 % Normal . [facility] Comment on above: Performed By: #### C BC, CMP #### [place] [address] [place] #### KAPPA, SPE, MELIDA SERUM #### [facility] , MCH (RBC) [Entitic mass] 30.1 pg Normal 27.5-35.2 [facility] Comment on above: Performed By: #### C BC, CMP #### [address] #### KAPPA, SPE, MELIDA SERUM #### [facility] , MCV (RBC) [Entitic vol] 86.3 fL Normal 83.5-101 T [facility] Comment on above: Performed By: #### C BC, CMP #### [place] [address] [place] #### KAPPA, SPE, MELIDA SERUM #### [facility] , Mean Corpuscular HGB Conc 34.9 g/dL Normal 32.5-35.6 [facility] Comment on above: Performed By: #### C BC, CMP #### [place] [address] [place] #### KAPPA, SPE, MELIDA SERUM #### [facility] , Monocytes (Bld) [#/Vol] 0.3 10*3/uL Normal 0.0-0.8 [facility] Comment on above: Performed By: #### C BC, CMP #### [place] [address] [place] #### KAPPA, SPE, MELIDA SERUM #### [facility] , Monocytes/100 WBC (Bld) 4.5 % Normal . T [facility] Comment on above: Performed By: #### C BC, CMP #### [place] [address] [place] #### KAPPA, SPE, MELIDA SERUM #### [facility] , Neutrophils (Bld) [#/Vol] 4.8 10*3/uL Normal 1.8-7.7 [facility] Comment on above: Performed By: #### C BC, CMP #### [place] [address] [place] #### KAPPA, SPE, MELIDA SERUM #### [facility] , Neutrophils/100 WBC (Bld) 74.8 % Normal . [facility] Comment on above: Performed By: #### C BC, CMP #### [place] [address] [place] #### KAPPA, SPE, MELIDA SERUM #### [facility] , NRBC% 0.0 /100{WBC} Normal 0-0.5 [facility] Comment on above: Performed By: #### C BC, CMP #### [place] [address] [place] #### KAPPA, SPE, MELIDA SERUM #### [facility] , Platelet mean volume (Bld) [Entitic vol] 8.5 fL Normal 6.6-10.1 [facility] Comment on above: Performed By: #### C BC, CMP #### [place] [address] [place] #### KAPPA, SPE, MELIDA SERUM #### [facility] , Platelets (Bld) [#/Vol] 159 10*3/uL Normal 150-450 [facility] Comment on above: Performed By: #### C BC, CMP #### [place] [address] [place] #### KAPPA, SPE, MELIDA SERUM #### [facility] , RBC (Bld) [#/Vol] 3.02 10*6/uL Low 3.90-5.60 [facility] Comment on above: Performed By: #### C BC, CMP #### [place] [address] [place] #### KAPPA, SPE, MELIDA SERUM #### [facility] , WBC (Bld) [#/Vol] 6.4 10*3/uL Normal 4.1-10.5 [facility] Comment on above: Performed By: #### C BC, CMP #### [place] [address] [place] #### KAPPA, SPE, MELIDA SERUM #### [facility] , Creatinineon 01-31-2023 Creatinine [Mass/Vol] 5.36 mg/dL High 0.70-1.30 [facility] Comment on above: Performed By: #### C BC, CMP #### [facility] [address] [place] [address] [place] #### KAPPA, SPE, MELIDA SERUM #### [facility] , GFR/1.73 sq M.predicted MDRD (S/P/Bld) [Vol rate/Area] 13.256 mL/min/{1.73_m2} Normal [facility] Comment on above: Performed By: #### C BC, CMP #### [facility] [address] [place] [address] [place] #### KAPPA, SPE, MELIDA SERUM #### [facility] , Creatinine [Mass/volume] in Serum or PlasmaOrdered By: Denilson Gomez on 01-31-2023 Creatinine [Mass/Vol] 5.36 mg/dL 0.70-1.30 [facility] ECG 12 lead ECGon 01-31-2023 ECG 12 lead ECG [facility] [place] [address] [place] [address] Electrocardiograph Report Signed Patient: Yoel Werner MR#: [id number] : 1985 Acct:[id number] Age/Sex: 37 / M ADM Date: 01/31/23 Loc: Room: Type: [facility] Attending Dr: Denilson Gomez DO Ordering Provider: Denilson Gomez DO Date of Service: 01/31/23 ECG/ECG 12 lead ECG: PST for [facility] Copies to: Test Reason : Blood Pressure : / mmHG Vent. Rate : 070 BPM Atrial Rate : 070 BPM P-R Int : 168 ms QRS Dur : 090 ms QT Int : 410 ms P-R-T Axes : 072 050 131 degrees QTc Int : 442 ms Normal sinus rhythm Possible Left atrial enlargement Anteroseptal infarct (cited on or before 12-AUG-2022) Abnormal ECG When compared with ECG of 12-NOV-2022 09:28, No significant change was found Confirmed by BRADEN MOLINA [facility]OSPITAL[facility]OBYN Smith ([id number]) on 01/31/2023 11:41:39 AM Referred By: JASON Electronically Signed By:ROBYN STEWART MD, FACC Transcribed By: MUS Signed By Elder Stewart MD 01/31/23 1141 Normal [facility] Electrolyteson 01-31-2023 Anion gap [Moles/Vol] 12.8 mmol/L Normal 6.0-15.0 [facility] e [facility] Comment on above: Performed By: #### C BC, CMP #### [facility] [address] [place] [address] [place] #### KAPPA, SPE, MELIDA SERUM #### [facility] , Chloride [Moles/Vol] 106 mmol/L Normal 98-107 [facility] Comment on above: Performed By: #### C BC, CMP #### [facility] [address] [place] [address] [place] #### KAPPA, SPE, MELIDA SERUM #### [facility] , CO2 [Moles/Vol] 22.2 mmol/L Normal 21.0-31.0 [facility] Comment on above: Performed By: #### C BC, CMP #### [place] [address] [place] #### KAPPA, SPE, MELIDA SERUM #### [facility] , Potassium [Moles/Vol] 5.0 mmol/L Normal 3.5-5.1 [facility] Comment on above: Performed By: #### C BC, CMP #### [facility] [address] [place] [address] [place] #### KAPPA, SPE, MELIDA SERUM #### [facility] , Sodium [Moles/Vol] 136 mmol/L Normal 136-145 [facility] Comment on above: Performed By: #### C BC, CMP #### [facility] [address] [place] [address] [place] #### KAPPA, SPE, MELIDA SERUM #### [facility] , Eosinophils Auto (Bld) [#/Vo l]Ordered By: Denilson Gomez on 01-31-2023 Eosinophils (Bld) [#/Vol] 0.2 10*3/uL 0.0-0.45 [facility] Eosinophils/100 WBC Auto (Bl d)Ordered By: Denilson Gomez on 01-31-2023 Eosinophils/100 WBC (Bld) 2.9 % . [facility] Erythrocyte distribution wid th Auto (RBC) [Ratio]Ordered By: Denilson Gomez on 01-31-2023 Erythrocyte distribution width (RBC) [Ratio] 12.9 % 12.0-14.8 [facility] Hematocrit Auto (Bld) [Volum e fraction]Ordered By: Denilson Gomez on 01-31-2023 Hematocrit (Bld) [Volume fraction] 26.0 % 38.8-50.0 [facility] Hemoglobin [Mass/volume] in BloodOrdered By: Denilson Gomez on 01-31-2023 Hemoglobin (Bld) [Mass/Vol] 9.1 g/dL 13.0-17.0 [facility] Laboratory - Chemistry and C hemistry - challengeon 01-31-2023 Cholesterol [Mass/Vol] 144\S\144 Normal 140-200 MP [facility] marianne 250 DO Work Phone: Comment on above: Chol less than 200 m g/dl low risk Chol 201-239 mg/dl borderline risk Chol 240 mg/dl and greater high risk Cholesterol in LDL [Mass/Vol] 95\S\95 Normal 0-100 [facility] marianne 250 DO Work Phone: Comment on above: LDL ATP III CLASSIFI CATION LDL less than 100 mg/dL Optimal LDL 100-129 mg/dL Near or above optimal LDL 130-159 mg/dL Borderline high LDL 160-189 mg/dL High LDL greater than 189 mg/dL Very high Laboratory - CoagulationOrde red By: Denilson Gomez on 01-31-2023 PT Coag (PPP) [Time] 12.7 s 9.0-12.9 [facility] Leukocytes [#/volume] correc celena for nucleated erythrocytes in Blood by Automated counOrdered By: Denilson Gomez on 01-31-2023 WBC corrected for nucl RBC Auto (Bld) [#/Vol] 6.4 10*3/uL 4.1-10.5 [facility] Lipid Panelon 01-31-2023 Cholesterol [Mass/Vol] 144 mg/dL Normal 140-200 [facility] Comment on above: Result Comment: Chol less than 200 mg/dl low risk Chol 201-239 mg/dl borderline risk Chol 240 mg/dl and greater high risk Performed By: #### C BC, CMP #### [place] [address] [place] #### KAPPA, SPE, MELIDA SERUM #### [facility] , Cholesterol in HDL [Mass/Vol] 28 mg/dL Normal 23-92 [facility] Comment on above: Result Comment: HDL CHOL ATP-III CLASSIFICATION Cardiovascular Risk HDL > or equal to 60 mg/dL LOW HDL < 40 mg/dL HIGH Performed By: #### C BC, CMP #### [place] [address] [place] #### KAPPA, SPE, MELIDA SERUM #### [facility] , Cholesterol.total/Rosalind sterol in HDL [Mass ratio] 5.1 {ratio} Normal <5.0 [facility] Comment on above: Result Comment: PERF ORMED BY: [place] [id number] PATHOLOGIST CV/CVN CV TSC SYSTEM OPERATOR LEVY GILES M.D. Performed By: #### C BC, CMP #### [place] [address] [place] #### KAPPA, SPE, MELIDA SERUM #### [facility] , LDL Cholesterol,Calculated 95 mg/dL Normal 0-100 [facility] Comment on above: Result Comment: LDL ATP III CLASSIFICATION LDL less than 100 mg/dL Optimal LDL 100-129 mg/dL Near or above optimal LDL 130-159 mg/dL Borderline high LDL 160-189 mg/dL High LDL greater than 189 mg/dL Very high Performed By: #### C BC, CMP #### [place] [address] [place] #### KAPPA, SPE, MELIDA SERUM #### [facility] , Triglyceride w/Reflex 103 mg/dL Normal 0-149 [facility] Comment on above: Result Comment: TRIG ATP III CLASSIFICATION TRIG less than 150 mg/dL Normal TRIG 150-199 mg/dL Borderline high TRIG 200-500 mg/dL High TRIG greater than 500 mg/dL Very high Standard traceable to the Center for Disease Conrtrol and Prevention (CDC) test method. Performed By: #### C BC, CMP #### [facility] [address] [place] [address] [place] #### KAPPA, SPE, MELIDA SERUM #### [facility] , VLDL CHOLESTEROL 20 mg/dL Normal [facility] Comment on above: Performed By: #### C BC, CMP #### [facility] [address] [place] [address] [place] #### KAPPA, SPE, MELIDA SERUM #### [facility] , Lymphocytes Auto (Bld) [#/Vo l]Ordered By: Denilson Gomez on 01-31-2023 Lymphocytes (Bld) [#/Vol] 1.0 10*3/uL 1.00-4.8 [facility] Lymphocytes/100 WBC Auto (Bl d)Ordered By: Denilson Gomez on 01-31-2023 Lymphocytes/100 WBC (Bld) 16.1 % . [facility] MCH Auto (RBC) [Entitic mass ]Ordered By: Denilson Gomez on 01-31-2023 MCH (RBC) [Entitic mass] 30.1 pg 27.5-35.2 [facility] MCHC Auto (RBC) [Mass/Vol]Or dered By: Denilson Gomez on 01-31-2023 MCHC (RBC) [Mass/Vol] 34.9 g/dL 32.5-35.6 [facility] MCV Auto (RBC) [Entitic vol] Ordered By: Denilson Gomez on 01-31-2023 MCV (RBC) [Entitic vol] 86.3 fL 83.5-101 F [facility] Monocytes Auto (Bld) [#/Vol] Ordered By: Denilson Gomez on 01-31-2023 Monocytes (Bld) [#/Vol] 0.3 10*3/uL 0.0-0.8 [facility] Monocytes/100 WBC Auto (Bld) Ordered By: Denilson Gomez on 01-31-2023 Monocytes/100 WBC (Bld) 4.5 % . [facility] Neutrophils Auto (Bld) [#/Vo l]Ordered By: Denilson Gomez on 01-31-2023 Neutrophils (Bld) [#/Vol] 4.8 10*3/uL 1.8-7.7 [facility] Neutrophils/100 WBC Auto (Bl d)Ordered By: Denilson Gomez on 01-31-2023 Neutrophils/100 WBC (Bld) 74.8 % . [facility] No Panel InformationOrdered By: Denilson Gomez on 01-31-2023 Estimated GFR (CKD-EPI) 13.256 mL/Min [facility] Creatinine Clearance (Chem N/A [facility] No Panel Informationon 01-31 0.1\S\0.1 Normal 0.0-0.2 [facility] mairanne 250 DO Work Phone: Comment on above: PERFORMED BY:[facility] [place], [place] [phone] MEDICAL DIRECTORLEVY GILES M.D. 0.2\S\0.2 Normal 0.0-0.45 [facility] marianne 250 DO Work Phone: [phone] 0.3\S\0.3 Normal 0.0-0.8 [facility] marianne 250 DO Work Phone: [phone] 1.0\S\1.0 Normal 1.00-4.8 [facility] marianne 250 DO Work Phone: [phone] 4.8\S\4.8 Normal 1.8-7.7 [facility] marianne 250 DO Work Phone: [phone] 0.0\S\0.0 Normal 0-0.5 [facility] marianne 250 DO Work Phone: [phone] 1.7\S\1.7 Normal . [facility] marianne 250 DO Work Phone: [phone] 2.9\S\2.9 Normal . [facility] marianne 250 DO Work Phone: [phone] 4.5\S\4.5 Normal . [facility] marianne 250 DO Work Phone: [phone] 16.1\S\16.1 Normal . [facility] marianne 250 DO Work Phone: [phone] 74.8\S\74.8 Normal . [facility] marianne 250 DO Work Phone: [phone] 8.5\S\8.5 Normal 6.6-10.1 [facility] marianne 250 DO Work Phone: [phone] 159\S\159 Normal 150-450 [facility] marianne 250 DO Work Phone: [phone] 12.9\S\12.9 Normal 12.0-14.[address] -[facility] marianne 250 DO Work Phone: [phone] 34.9\S\34.9 Normal 32.5-35.6 [facility] marianne 250 DO Work Phone: [phone] 30.1\S\30.1 Normal 27.5-35.2 [facility] marianne 250 DO Work Phone: [phone] 86.3\S\86.3 Normal 83.5-101 [facility] marianne 250 DO Work Phone: [phone] 26.0\S\26.0 below low threshold 38.8-50.0 [facility] marianne 250 DO Work Phone: [phone] 9.1\S\9.1 below low threshold 13.0-17.0 [facility] marianne 250 DO Work Phone: [phone] 3.02\S\3.02 below low threshold 3.90-5.60 [facility] marianne 250 DO Work Phone: [phone] 6.4\S\6.4 Normal 4.1-10.5 [facility] marianne 250 DO Work Phone: [phone] 40.7\S\40.7 above high threshold 25.1-36.5 [facility] marianne 250 DO Work Phone: Comment on above: PERFORMED BY:[facility] HOFFEsaJULIETTESA[place], [place] [phone] MEDICAL DIRECTORLEVY GILES M.D. 1.1\S\1.1 Normal [facility] marianne 250 DO Work Phone: Comment on [...] valves: 3 - 4.5 12.7\S\12.7 Normal 9.0-12.9 [facility] marianne 250 DO Work Phone: 12.8\S\12.8 Normal 6.0-15.0 [facility] marianne 250 DO Work Phone: 22.2\S\22.2 Normal 21.0-31.0 [facility] marianne 250 DO Work Phone: 106\S\106 Normal 98-107 [facility] marianne 250 DO Work Phone: 5.0\S\5.0 Normal 3.5-5.1 [facility] marianne 250 DO Work Phone: [phone] 136\S\136 Normal 136-145 [facility] marianne 250 DO Work Phone: 71\S\71 above high threshold 7-25 [facility] marianne 250 DO Work Phone: 13.256\S\13.256 Normal [facility] marianne 250 DO Work Phone: 5.36\S\5.36 above high threshold 0.70-1.30 [facility] marianne 250 DO Work Phone: 5.1\S\5.1 Normal <5.0 [facility] [employer] marianne 250 DO Work Phone: Comment on above: PERFORMED BY:[facility] [place], [place] [phone] MEDICAL DIRECTORLEVY GILES M.D. 20\S\20 Normal [facility] [facility] DO Work Phone: [phone]\S\[phone] Normal 0-149 [facility] 250 DO Work Phone: Comment on above: TRIG ATP III CLASSIF ICATION TRIG less than 150 mg/dL Normal TRIG 150-199 mg/dL Borderline high TRIG 200-500 mg/dL High TRIG greater than 500 mg/dL Very high Standard traceable to the Center for Disease Conrtrol and Prevention (CDC) test method. 28\S\28 Normal 23-92 [facility] 250 DO Work Phone: Comment on above: HDL CHOL ATP-III CLA SSIFICATION Cardiovascular Risk HDL > or equal to 60 mg/dL LOW HDL < 40 mg/dL HIGH Nucleated erythrocytes [Pres ence] in Blood by Automated countOrdered By: Denilson Gomez on 01-31-2023 Nucleated RBC Auto Ql (Bld) 0.0 /100{WBC} 0-0.5 [facility] Platelet mean volume Auto (B ld) [Entitic vol]Ordered By: Denilson Gomez on 01-31-2023 Platelet mean volume (Bld) [Entitic vol] 8.5 fL 6.6-10.1 [facility] Platelet poor plasma interna tional normalized ratio (INR) by coagulation assay (relatOrdered By: Denilson Gomez on 01-31-2023 INR Coag (PPP) [Relative time] 1.1 {INR} [facility] Comment on above: INR Therapeutic Rang e [...] 01-31-2023 Platelets (Bld) [#/Vol] 159 10*3/uL 150-450 [facility] Potassium [Moles/volume] in Serum or PlasmaOrdered By: Denilson Gomez on 01-31-2023 Potassium [Moles/Vol] 5.0 mmol/L 3.5-5.1 [facility] RBC Auto (Bld) [#/Vol]Ordere d By: Denilson Gomez on 01-31-2023 RBC (Bld) [#/Vol] 3.02 10*6/uL 3.90-5.60 [facility] Serum or plasma anion gap de terminationOrdered By: Denilson Gomez on 01-31-2023 Anion gap [Moles/Vol] 12.8 mmol/L 6.0-15.0 [facility] Serum or plasma high density lipoprotein (HDL) cholesterol measurementOrdered By: Denilson Gomez on 01-31-2023 Cholesterol in HDL [Mass/Vol] 28 mg/dL 23-92 [facility] Comment on above: HDL CHOL ATP-III CLA SSIFICATION Cardiovascular RiskHDL > or equal to 60 mg/dL LOWHDL < 40 mg/dL HIGH Serum or plasma total choles terol/high density lipoprotein (HDL) cholesterol mass ratOrdered By: Denilson Gomez on 01-31-2023 Cholesterol.total/Rosalind sterol in HDL [Mass ratio] 5.1 {ratio} <5.0 [facility] Sodium [Moles/volume] in Ser um or PlasmaOrdered By: Denilson Gomez on 01-31-2023 Sodium [Moles/Vol] 136 mmol/L 136-145 [facility] Triglyceride [Mass/volume] i n Serum or PlasmaOrdered By: Denilson Gomez on 01-31-2023 Triglyceride [Mass/Vol] 103 mg/dL 0-149 [facility] Comment on above: TRIG ATP III CLASSIF ICATIONTRIG less than 150 mg/dL NormalTRIG 150-199 mg/dL Borderline highTRIG 200-500 mg/dL High TRIG greater than 500 mg/dL Very highStandard traceable to the Center for Disease Conrtrol and Prevention (CDC) test method. Urea nitrogen [Mass/volume] in Serum or PlasmaOrdered By: Denilson Gomez on 01-31-2023 Urea nitrogen [Mass/Vol] 71 mg/dL 7-25 [facility] WBC Auto (Bld) [#/Vol]Ordere d By: Denilson Gomez on 01-31-2023 WBC (Bld) [#/Vol] 6.4 10*3/uL 4.1-10.5 [facility] Office Visit (Cardiology)on 01-16-2023 Follow-up visit Diagnoses/Problems Assessed ASHD (arteriosclerotic heart disease) (414.00) (I25.10) History of VT (myocardial infarction) (412) (I25.2) NSTEMI, initial episode of care (410.71) (I21.4) Chronic kidney disease (CKD) (585.9) (N18.9) CHF (congestive heart failure) (428.0) (I50.9) Diabetes mellitus (250.00) (E11.9) Body mass index (BMI) of 21.0 to 21.9 in adult (V85.1) (Z68.21) History of ischemic cardiomyopathy (V45.89) (Z86.79) Orders ASHD (arteriosclerotic heart disease), CHF (congestive heart failure), History of VT (myocardial infarction), NSTEMI, initial episode of care Cardiac Catherization; Status:Active - Retrospective Authorization; Requested for:[id number]; ASHD (arteriosclerotic heart disease), Hyperlipidemia, NSTEMI, initial [...] gentleman with severe ischemic cardiomyopathy, prior anterior VT with revascularization of the LAD, more recently [...] negative for complaint. Vitals Vital Signs Recorded: [id number] 10:04AM Heart Rate60, R Radial [id number], RUE, Sitting [id number], RUE, Sitting Height6 ft [id number] lb BMI Xodculysnd92.7 kg/m2 BSA Calculated1.94 Tobacco Usea) Yes Patient [...] pedal pu (more content not included)... Normal [facility] Tobacco Screening.on 023 Fall risk assessment a) No falls within the last year [facility] [employer] 250 DO Work Phone: Tobacco use status CPHS a) Yes [facility] [employer] 250 DO Work Phone: Tobacco Screening. Yes -[facility] [employer] 250 DO Work Phone: Basophils Auto (Bld) [#/Vol] Ordered By: Kim Renteria on 01-09-2023 Basophils (Bld) [#/Vol] 0.1 10*3/uL 0.0-0.2 [facility] Basophils/100 WBC Auto (Bld) Ordered By: Kim Renteria on 01-09-2023 Basophils/100 WBC (Bld) 1.4 % . [facility] Calcium [Mass/volume] in Ser um or PlasmaOrdered By: Kim Renteria on 01-09-2023 Calcium [Mass/Vol] 7.8 mg/dL 8.6-10.3 [facility] Carbon dioxide, total [Moles /volume] in Serum or PlasmaOrdered By: Kim Renteria on 01-09-2023 CO2 [Moles/Vol] 21.0 mmol/L 21.0-31.0 [facility] Chloride [Moles/volume] in S gretta or PlasmaOrdered By: Kim Renteria on 01-09-2023 Chloride [Moles/Vol] 108 mmol/L 98-107 [facility] Creatinine [Mass/volume] in Serum or PlasmaOrdered By: Kim Renteria on 01-09-2023 Creatinine [Mass/Vol] 4.82 mg/dL 0.70-1.30 [facility] Eosinophils Auto (Bld) [#/Vo l]Ordered By: Kim Renteria on 01-09-2023 Eosinophils (Bld) [#/Vol] 0.2 10*3/uL 0.0-0.45 [facility] Eosinophils/100 WBC Auto (Bl d)Ordered By: Kim Renteria on 01-09-2023 Eosinophils/100 WBC (Bld) 2.7 % . [facility] Erythrocyte distribution wid th Auto (RBC) [Ratio]Ordered By: Kim Renteria on 01-09-2023 Erythrocyte distribution width (RBC) [Ratio] 13.4 % 12.0-14.8 [facility] Glucose Glucometer (BldC) [M ass/Vol]Ordered By: Justino Boss on 01-09-2023 Glucose [Mass/Vol] 184 mg/dL [facility] Comment on above: Random Glucose Refer ence Range is dependent on time and content of last meal. Glucose of more than 200 mg/dL in a nonstressed, ambulatory subject supports the diagnosis of Diabetes Mellitus. Glucose [Mass/volume] in Ser um or PlasmaOrdered By: Kim Renteria on 01-09-2023 Glucose [Mass/Vol] 176 mg/dL 70-100 [facility] Comment on above: ADA recommended refe rence rangeRandom Glucose Reference Range is dependent on time and content of last meal. Glucose of more than 200 mg/dL in a nonstressed, ambulatory subject supports the diagnosis of Diabetes Mellitus. Hematocrit Auto (Bld) [Volum e fraction]Ordered By: Kim Renteria on 01-09-2023 Hematocrit (Bld) [Volume fraction] 24.7 % 38.8-50.0 [facility] Hemoglobin [Mass/volume] in BloodOrdered By: Kim Renteria on 01-09-2023 Hemoglobin (Bld) [Mass/Vol] 8.7 g/dL 13.0-17.0 [facility] Leukocytes [#/volume] correc celena for nucleated erythrocytes in Blood by Automated counOrdered By: Kim Renteria on 01-09-2023 WBC corrected for nucl RBC Auto (Bld) [#/Vol] 6.7 10*3/uL 4.1-10.5 [facility] Lymphocytes Auto (Bld) [#/Vo l]Ordered By: Kim Renteria on 01-09-2023 Lymphocytes (Bld) [#/Vol] 1.0 10*3/uL 1.00-4.8 [facility] Lymphocytes/100 WBC Auto (Bl d)Ordered By: Kim Renteria on 01-09-2023 Lymphocytes/100 WBC (Bld) 14.8 % . [facility] MCH Auto (RBC) [Entitic mass ]Ordered By: Kim Renteria on 01-09-2023 MCH (RBC) [Entitic mass] 30.6 pg 27.5-35.2 [facility] MCHC Auto (RBC) [Mass/Vol]Or dered By: Kim Renteria on 01-09-2023 MCHC (RBC) [Mass/Vol] 35.2 g/dL 32.5-35.6 [facility] MCV Auto (RBC) [Entitic vol] Ordered By: Kim Renteria on 01-09-2023 MCV (RBC) [Entitic vol] 87.0 fL 83.5-101 [facility] Monocytes Auto (Bld) [#/Vol] Ordered By: Kim Renteria on 01-09-2023 Monocytes (Bld) [#/Vol] 0.5 10*3/uL 0.0-0.8 [facility] Monocytes/100 WBC Auto (Bld) Ordered By: Kim Renteria on 01-09-2023 Monocytes/100 WBC (Bld) 7.2 % . [facility] Neutrophils Auto (Bld) [#/Vo l]Ordered By: Kim Renteria on 01-09-2023 Neutrophils (Bld) [#/Vol] 5.0 10*3/uL 1.8-7.7 [facility] Neutrophils/100 WBC Auto (Bl d)Ordered By: Kim Renteria on 01-09-2023 Neutrophils/100 WBC (Bld) 73.9 % . [facility] No Panel InformationOrdered By: Justino Boss on 01-09-2023 Bedside Glucose Comment Glu2: cleaned meter [facility] No Panel InformationOrdered By: Kim Renteria on 01-09-2023 Estimated GFR (CKD-EPI) 15.059 mL/Min [facility] Creatinine Clearance (Chem 22.44 [facility] Nucleated erythrocytes [Pres ence] in Blood by Automated countOrdered By: Kim Renteria on 01-09-2023 Nucleated RBC Auto Ql (Bld) 0.0 /100{WBC} 0-0.5 [facility] Platelet mean volume Auto (B ld) [Entitic vol]Ordered By: Kim Renteria on 01-09-2023 Platelet mean volume (Bld) [Entitic vol] 7.9 fL 6.6-10.1 [facility] Platelets Auto (Bld) [#/Vol] Ordered By: Kim Renteria on 01-09-2023 Platelets (Bld) [#/Vol] 207 10*3/uL 150-450 [facility] Potassium [Moles/volume] in Serum or PlasmaOrdered By: Kim Renteria on 01-09-2023 Potassium [Moles/Vol] 4.2 mmol/L 3.5-5.1 [facility] RBC Auto (Bld) [#/Vol]Ordere d By: Kim Renteria on 01-09-2023 RBC (Bld) [#/Vol] 2.84 10*6/uL 3.90-5.60 [facility] Serum or plasma anion gap de terminationOrdered By: Kim Renteria on 01-09-2023 Anion gap [Moles/Vol] 12.2 mmol/L 6.0-15.0 [facility] Sodium [Moles/volume] in Ser um or PlasmaOrdered By: Kim Renteria on 01-09-2023 Sodium [Moles/Vol] 137 mmol/L 136-145 [facility] Troponin I.cardiac [Mass/vol ume] in Serum or Plasma by Detection limit <= 0.01 ng/Ordered By: Kim Renteria on 01-09-2023 Troponin I.cardiac DL <= 0.01 ng/mL [Mass/Vol] 25.1 pg/mL 0.0-20.0 [facility] Urea nitrogen [Mass/volume] in Serum or PlasmaOrdered By: Kim Renteria on 01-09-2023 Urea nitrogen [Mass/Vol] 65 mg/dL 7-25 [facility] WBC Auto (Bld) [#/Vol]Ordere d By: Kim Renteria on 01-09-2023 WBC (Bld) [#/Vol] 6.7 10*3/uL 4.1-10.5 [facility] Albumin [Mass/volume] in Ser um or Plasma by Bromocresol green (BCG) dye binding methoOrdered By: Angel Mejía on 12-25-2022 Albumin BCG dye [Mass/Vol] 3.4 g/dL 3.5-5.7 [facility] Calcium [Mass/volume] in Ser um or PlasmaOrdered By: Angel Mejía on 12-25-2022 Calcium [Mass/Vol] 8.0 mg/dL 8.6-10.3 [facility] Carbon dioxide, total [Moles /volume] in Serum or PlasmaOrdered By: Angel Mejía on 12-25-2022 CO2 [Moles/Vol] 21.4 mmol/L 21.0-31.0 [facility] Chloride [Moles/volume] in S gretta or PlasmaOrdered By: Angel Mejía on 12-25-2022 Chloride [Moles/Vol] 104 mmol/L 98-107 [facility] Creatinine [Mass/volume] in Serum or PlasmaOrdered By: Angel Mejía on 12-25-2022 Creatinine [Mass/Vol] 4.68 mg/dL 0.70-1.30 [facility] Erythrocyte distribution wid th Auto (RBC) [Ratio]Ordered By: Angel Mejía on 12-25-2022 Erythrocyte distribution width (RBC) [Ratio] 13.4 % 12.0-14.8 [facility] Ferritin [Mass/volume] in Se rum or PlasmaOrdered By: Angel Mejía on 12-25-2022 Ferritin [Mass/Vol] 87.5 ng/mL 23.9-336.2 [facility] Glucose [Mass/volume] in Ser um or PlasmaOrdered By: Angel Mejía on 12-25-2022 Glucose [Mass/Vol] 187 mg/dL 70-100 [facility] Comment on above: ADA recommended refe rence rangeRandom Glucose Reference Range is dependent on time and content of last meal. Glucose of more than 200 mg/dL in a nonstressed, ambulatory subject supports the diagnosis of Diabetes Mellitus. Hematocrit Auto (Bld) [Volum e fraction]Ordered By: Angel Mejía on 12-25-2022 Hematocrit (Bld) [Volume fraction] 29.0 % 38.8-50.0 [facility] Hemoglobin [Mass/volume] in BloodOrdered By: Angel Mejía on 12-25-2022 Hemoglobin (Bld) [Mass/Vol] 9.8 g/dL 13.0-17.0 [facility] Iron [Mass/volume] in Serum or PlasmaOrdered By: Angel Mejía on 12-25-2022 Iron [Mass/Vol] 61 ug/dL 50-212 [facility] Iron binding capacity [Mass/ volume] in Serum or PlasmaOrdered By: Angel Mejía on 12-25-2022 Iron binding capacity [Mass/Vol] 237 ug/dL 255-450 [facility] Iron saturation [Mass Fracti on] in Serum or PlasmaOrdered By: Angel Mejía on 12-25-2022 Iron saturation [Mass fraction] 25.7 % 20-50 [facility] Leukocytes [#/volume] correc celena for nucleated erythrocytes in Blood by Automated counOrdered By: Angel Mejía on 12-25-2022 WBC corrected for nucl RBC Auto (Bld) [#/Vol] 7.4 10*3/uL 4.1-10.5 [facility] MCH Auto (RBC) [Entitic mass ]Ordered By: Angel Mejía on 12-25-2022 MCH (RBC) [Entitic mass] 29.9 pg 27.5-35.2 [facility] MCHC Auto (RBC) [Mass/Vol]Or dered By: Angel Mejía on 12-25-2022 MCHC (RBC) [Mass/Vol] 33.9 g/dL 32.5-35.6 [facility] MCV Auto (RBC) [Entitic vol] Ordered By: Angel Mejía on 12-25-2022 MCV (RBC) [Entitic vol] 88.3 fL 83.5-101 [facility] No Panel InformationOrdered By: Angel Mejía on 12-25-2022 Estimated GFR (CKD-EPI) 15.601 mL/Min [facility] Creatinine Clearance (Chem N/A [facility] Parathyrin.intact [Mass/volu me] in Serum or PlasmaOrdered By: Angel Mejía on 12-25-2022 Parathyrin.intact [Mass/Vol] 468.7 pg/mL 12-88 [facility] Phosphate [Mass/volume] in S gretta or PlasmaOrdered By: Angel Mejía on 12-25-2022 Phosphate [Mass/Vol] 6.0 mg/dL 3.7-7.2 [facility] Platelet mean volume Auto (B ld) [Entitic vol]Ordered By: Angel Mejía on 12-25-2022 Platelet mean volume (Bld) [Entitic vol] 8.4 fL 6.6-10.1 [facility] Platelets Auto (Bld) [#/Vol] Ordered By: Angel Mejía on 12-25-2022 Platelets (Bld) [#/Vol] 160 10*3/uL 150-450 [facility] Potassium [Moles/volume] in Serum or PlasmaOrdered By: Angel Mejía on 12-25-2022 Potassium [Moles/Vol] 5.1 mmol/L 3.5-5.1 [facility] RBC Auto (Bld) [#/Vol]Ordere d By: Angel Mejía on 12-25-2022 RBC (Bld) [#/Vol] 3.28 10*6/uL 3.90-5.60 [facility] Serum or plasma anion gap de terminationOrdered By: Angel Kym on 12-25-2022 Anion gap [Moles/Vol] 13.7 mmol/L 6.0-15.0 [facility] Sodium [Moles/volume] in Ser um or PlasmaOrdered By: Angel Kym on 12-25-2022 Sodium [Moles/Vol] 134 mmol/L 136-145 [facility] Transferrin [Mass/volume] in Serum or PlasmaOrdered By: Angel Kym on 12-25-2022 Transferrin [Mass/Vol] 169 mg/dL 203-362 [facility] Urea nitrogen [Mass/volume] in Serum or PlasmaOrdered By: Angel Kym on 12-25-2022 Urea nitrogen [Mass/Vol] 57 mg/dL 7-25 [facility] Basophils Auto (Bld) [#/Vol] Ordered By: Govind Berry on 12-18-2022 Basophils (Bld) [#/Vol] 0.1 10*3/uL 0.0-0.2 [facility] Basophils/100 WBC Auto (Bld) Ordered By: Govind Berry on 12-18-2022 Basophils/100 WBC (Bld) 1.7 % . [facility] Eosinophils Auto (Bld) [#/Vo l]Ordered By: Govind Berry on 12-18-2022 Eosinophils (Bld) [#/Vol] 0.2 10*3/uL 0.0-0.45 [facility] Eosinophils/100 WBC Auto (Bl d)Ordered By: Govind Berry on 12-18-2022 Eosinophils/100 WBC (Bld) 2.5 % . [facility] Erythrocyte distribution wid th Auto (RBC) [Ratio]Ordered By: Govind Berry on 12-18-2022 Erythrocyte distribution width (RBC) [Ratio] 14.1 % 12.0-14.8 [facility] Glucose Glucometer (BldC) [M ass/Vol]Ordered By: Romain Mendoza on 12-18-2022 Glucose [Mass/Vol] 165 mg/dL [facility] Comment on above: Random Glucose Refer ence Range is dependent on time and content of last meal. Glucose of more than 200 mg/dL in a nonstressed, ambulatory subject supports the diagnosis of Diabetes Mellitus. Hematocrit Auto (Bld) [Volum e fraction]Ordered By: Govind Berry on 12-18-2022 Hematocrit (Bld) [Volume fraction] 27.7 % 38.8-50.0 [facility] Hemoglobin [Mass/volume] in BloodOrdered By: Govind Berry on 12-18-2022 Hemoglobin (Bld) [Mass/Vol] 9.4 g/dL 13.0-17.0 [facility] Leukocytes [#/volume] correc celena for nucleated erythrocytes in Blood by Automated counOrdered By: Govind Berry on 12-18-2022 WBC corrected for nucl RBC Auto (Bld) [#/Vol] 8.0 10*3/uL 4.1-10.5 [facility] Lymphocytes Auto (Bld) [#/Vo l]Ordered By: Govind Berry on 12-18-2022 Lymphocytes (Bld) [#/Vol] 1.1 10*3/uL 1.00-4.8 [facility] Lymphocytes/100 WBC Auto (Bl d)Ordered By: Govind Berry on 12-18-2022 Lymphocytes/100 WBC (Bld) 13.5 % . [facility] MCH Auto (RBC) [Entitic mass ]Ordered By: Govind Berry on 12-18-2022 MCH (RBC) [Entitic mass] 30.0 pg 27.5-35.2 [facility] MCHC Auto (RBC) [Mass/Vol]Or dered By: Govind Berry on 12-18-2022 MCHC (RBC) [Mass/Vol] 34.0 g/dL 32.5-35.6 [facility] MCV Auto (RBC) [Entitic vol] Ordered By: Govind Berry on 12-18-2022 MCV (RBC) [Entitic vol] 88.2 fL 83.5-101 [facility] Monocytes Auto (Bld) [#/Vol] Ordered By: Govind Berry on 12-18-2022 Monocytes (Bld) [#/Vol] 0.4 10*3/uL 0.0-0.8 [facility] Monocytes/100 WBC Auto (Bld) Ordered By: Govind Berry on 12-18-2022 Monocytes/100 WBC (Bld) 5.1 % . [facility] Neutrophils Auto (Bld) [#/Vo l]Ordered By: Govind Berry on 12-18-2022 Neutrophils (Bld) [#/Vol] 6.2 10*3/uL 1.8-7.7 [facility] Neutrophils/100 WBC Auto (Bl d)Ordered By: Govind Berry on 12-18-2022 Neutrophils/100 WBC (Bld) 77.2 % . [facility] No Panel InformationOrdered By: Romain Mendoza on 12-18-2022 Bedside Glucose Comment Glu2: cleaned meter [facility] Nucleated erythrocytes [Pres ence] in Blood by Automated countOrdered By: Govind Berry on 12-18-2022 Nucleated RBC Auto Ql (Bld) 0.1 /100{WBC} 0-0.5 [facility] Platelet mean volume Auto (B ld) [Entitic vol]Ordered By: Govind Berry on 12-18-2022 Platelet mean volume (Bld) [Entitic vol] 8.0 fL 6.6-10.1 [facility] Platelets Auto (Bld) [#/Vol] Ordered By: Govind Berry on 12-18-2022 Platelets (Bld) [#/Vol] 167 10*3/uL 150-450 [facility] Potassium [Moles/volume] in Serum or PlasmaOrdered By: Yordy Garg on 12-18-2022 Potassium [Moles/Vol] 4.9 mmol/L 3.5-5.1 [facility] RBC Auto (Bld) [#/Vol]Ordere d By: Govind Berry on 12-18-2022 RBC (Bld) [#/Vol] 3.15 10*6/uL 3.90-5.60 [facility] WBC Auto (Bld) [#/Vol]Ordere d By: Govind Berry on 12-18-2022 WBC (Bld) [#/Vol] 8.0 10*3/uL 4.1-10.5 [facility] Albumin [Mass/volume] in Ser um or Plasma by Bromocresol green (BCG) dye binding methoOrdered By: Angel Mejía on 11-20-2022 Albumin BCG dye [Mass/Vol] 3.3 g/dL 3.5-5.7 [facility] Calcium [Mass/volume] in Ser um or PlasmaOrdered By: Angel Mejía on 11-20-2022 Calcium [Mass/Vol] 8.0 mg/dL 8.6-10.3 [facility] Carbon dioxide, total [Moles /volume] in Serum or PlasmaOrdered By: Angel Mejía on 11-20-2022 CO2 [Moles/Vol] 22.0 mmol/L 21.0-31.0 [facility] Chloride [Moles/volume] in S gretta or PlasmaOrdered By: Angel Mejía on 11-20-2022 Chloride [Moles/Vol] 107 mmol/L 98-107 [facility] Creatinine [Mass/volume] in Serum or PlasmaOrdered By: Angel Mejía on 11-20-2022 Creatinine [Mass/Vol] 4.21 mg/dL 0.70-1.30 [facility] Ferritin [Mass/volume] in Se rum or PlasmaOrdered By: Angel Mejía on 11-20-2022 Ferritin [Mass/Vol] 100.2 ng/mL 23.9-336.2 [facility] Glucose [Mass/volume] in Ser um or PlasmaOrdered By: Angel Mejía on 11-20-2022 Glucose [Mass/Vol] 167 mg/dL 70-100 [facility] Comment on above: ADA recommended refe rence rangeRandom Glucose Reference Range is dependent on time and content of last meal. Glucose of more than 200 mg/dL in a nonstressed, ambulatory subject supports the diagnosis of Diabetes Mellitus. Iron [Mass/volume] in Serum or PlasmaOrdered By: Angel Mejía on 11-20-2022 Iron [Mass/Vol] 48 ug/dL 50-212 [facility] Iron binding capacity [Mass/ volume] in Serum or PlasmaOrdered By: Angel Mejía on 11-20-2022 Iron binding capacity [Mass/Vol] 221 ug/dL 255-450 [facility] Iron saturation [Mass Fracti on] in Serum or PlasmaOrdered By: Angel Mejía on 11-20-2022 Iron saturation [Mass fraction] 21.7 % 20-50 [facility] No Panel InformationOrdered By: Angel Mejía on 11-20-2022 Estimated GFR (CKD-EPI) 17.714 mL/Min [facility] Creatinine Clearance (Chem N/A [facility] Phosphate [Mass/volume] in S gretta or PlasmaOrdered By: Angel Mejía on 11-20-2022 Phosphate [Mass/Vol] 6.0 mg/dL 3.7-7.2 [facility] Potassium [Moles/volume] in Serum or PlasmaOrdered By: Angel Mejía on 11-20-2022 Potassium [Moles/Vol] 4.5 mmol/L 3.5-5.1 [facility] Serum or plasma anion gap de terminationOrdered By: Angel Mejía on 11-20-2022 Anion gap [Moles/Vol] 13.5 mmol/L 6.0-15.0 [facility] Sodium [Moles/volume] in Ser um or PlasmaOrdered By: Angel Mejía on 11-20-2022 Sodium [Moles/Vol] 138 mmol/L 136-145 [facility] Transferrin [Mass/volume] in Serum or PlasmaOrdered By: Angel Mejía on 11-20-2022 Transferrin [Mass/Vol] 158 mg/dL 203-362 [facility] Urea nitrogen [Mass/volume] in Serum or PlasmaOrdered By: Angel Mejía on 11-20-2022 Urea nitrogen [Mass/Vol] 64 mg/dL 7-25 [facility] Activated partial thrombopla stin time (aPTT) in platelet poor plasma by coagulation aOrdered By: Denilson Gomez on 11-12-2022 aPTT Coag (PPP) [Time] 38.0 s 25.1-36.5 [facility] Albumin [Mass/volume] in Ser um or Plasma by Bromocresol green (BCG) dye binding methoOrdered By: Denilson Gomez on 11-12-2022 Albumin BCG dye [Mass/Vol] 3.2 g/dL 3.5-5.7 [facility] Basophils Auto (Bld) [#/Vol] Ordered By: Denilson Gomez on 11-12-2022 Basophils (Bld) [#/Vol] 0.1 10*3/uL 0.0-0.2 [facility] Basophils/100 WBC Auto (Bld) Ordered By: Denilson Gomez on 11-12-2022 Basophils/100 WBC (Bld) 1.4 % . [facility] Calcium [Mass/volume] in Ser um or PlasmaOrdered By: Denilson Gomez on 11-12-2022 Calcium [Mass/Vol] 8.2 mg/dL 8.6-10.3 [facility] Carbon dioxide, total [Moles /volume] in Serum or PlasmaOrdered By: Denilson Gomez on 11-12-2022 CO2 [Moles/Vol] 22.5 mmol/L 21.0-31.0 [facility] Chloride [Moles/volume] in S gretta or PlasmaOrdered By: Denilson Gomez on 11-12-2022 Chloride [Moles/Vol] 108 mmol/L 98-107 [facility] Cholesterol [Mass/volume] in Serum or PlasmaOrdered By: Denilson Gomez on 11-12-2022 Cholesterol [Mass/Vol] 143 mg/dL 140-200 [facility] Comment on above: Chol less than 200 m g/dl low riskChol 201-239 mg/dl borderline riskChol 240 mg/dl and greater high risk Cholesterol in LDL Calc [Mas s/Vol]Ordered By: Denilson Gomez on 11-12-2022 Cholesterol in LDL [Mass/Vol] 93 mg/dL 0-100 [facility] Comment on above: LDL ATP III CLASSIFI CATIONLDL less than 100 mg/dL OptimalLDL 100-129 mg/dL Near or above optimalLDL 130-159 mg/dL Borderline highLDL 160-189 mg/dL HighLDL greater than 189 mg/dL Very high Cholesterol in VLDL Calc [Ma ss/Vol]Ordered By: Denilson Gomez on 11-12-2022 Cholesterol in VLDL [Mass/Vol] 19 mg/dL [facility] Creatinine [Mass/volume] in Serum or PlasmaOrdered By: Denilson Gomez on 11-12-2022 Creatinine [Mass/Vol] 4.90 mg/dL 0.70-1.30 [facility] Eosinophils Auto (Bld) [#/Vo l]Ordered By: Denilson Gomez on 11-12-2022 Eosinophils (Bld) [#/Vol] 0.1 10*3/uL 0.0-0.45 [facility] Eosinophils/100 WBC Auto (Bl d)Ordered By: Denilson Gomez on 11-12-2022 Eosinophils/100 WBC (Bld) 1.9 % . [facility] Erythrocyte distribution wid th Auto (RBC) [Ratio]Ordered By: Denilson Gomez on 11-12-2022 Erythrocyte distribution width (RBC) [Ratio] 12.2 % 12.0-14.8 [facility] Glucose [Mass/volume] in Ser um or PlasmaOrdered By: Denilson Gomez on 11-12-2022 Glucose [Mass/Vol] 236 mg/dL 70-100 [facility] Comment on above: ADA recommended refe rence rangeRandom Glucose Reference Range is dependent on time and content of last meal. Glucose of more than 200 mg/dL in a nonstressed, ambulatory subject supports the diagnosis of Diabetes Mellitus. Hematocrit Auto (Bld) [Volum e fraction]Ordered By: Denilson Gomez on 11-12-2022 Hematocrit (Bld) [Volume fraction] 25.5 % 38.8-50.0 [facility] Hemoglobin [Mass/volume] in BloodOrdered By: Denilson Gomez on 11-12-2022 Hemoglobin (Bld) [Mass/Vol] 8.7 g/dL 13.0-17.0 [facility] Laboratory - Chemistry and C hemistry - challengeon 11-12-2022 Cholesterol [Mass/Vol] 143\S\143 Normal 140-200 MP -[facility]-Sandu marianne 250 DO Work Phone: Comment on above: Chol less than 200 m g/dl low risk Chol 201-239 mg/dl borderline risk Chol 240 mg/dl and greater high risk Cholesterol in LDL [Mass/Vol] 93\S\93 Normal 0-[address] -[facility]-Sandu marianne 250 DO Work Phone: [...] M.predicted MDRD (S/P/Bld) [Vol rate/Area] 14.764 mL/min/{1.73_m2} [facility] Laboratory - CoagulationOrde red By: Denilson Gomez on 11-12-2022 PT Coag (PPP) [Time] 12.4 s 9.0-12.9 [facility] Leukocytes [#/volume] correc celena for nucleated erythrocytes in Blood by Automated counOrdered By: Denilson Gomez on 11-12-2022 WBC corrected for nucl RBC Auto (Bld) [#/Vol] 7.6 10*3/uL 4.1-10.5 [facility] Lymphocytes Auto (Bld) [#/Vo l]Ordered By: Denilson Gomez on 11-12-2022 Lymphocytes (Bld) [#/Vol] 1.0 10*3/uL 1.00-4.8 [facility] Lymphocytes/100 WBC Auto (Bl d)Ordered By: Denilson Gomez on 11-12-2022 Lymphocytes/100 WBC (Bld) 13.3 % . [facility] MCH Auto (RBC) [Entitic mass ]Ordered By: Denilson Gomez on 11-12-2022 MCH (RBC) [Entitic mass] 29.8 pg 27.5-35.2 [facility] MCHC Auto (RBC) [Mass/Vol]Or dered By: Denilson Gomez on 11-12-2022 MCHC (RBC) [Mass/Vol] 34.3 g/dL 32.5-35.6 [facility] MCV Auto (RBC) [Entitic vol] Ordered By: Denilson Gomez on 11-12-2022 MCV (RBC) [Entitic vol] 87.0 fL 83.5-101 [facility] Monocytes Auto (Bld) [#/Vol] Ordered By: Denilson Gomez on 11-12-2022 Monocytes (Bld) [#/Vol] 0.2 10*3/uL 0.0-0.8 [facility] Monocytes/100 WBC Auto (Bld) Ordered By: Denilson Gomez on 11-12-2022 Monocytes/100 WBC (Bld) 3.2 % . [facility] Neutrophils Auto (Bld) [#/Vo l]Ordered By: Denilson Gomez on 11-12-2022 Neutrophils (Bld) [#/Vol] 6.1 10*3/uL 1.8-7.7 [facility] Neutrophils/100 WBC Auto (Bl d)Ordered By: Denilson Gomez on 11-12-2022 Neutrophils/100 WBC (Bld) 80.2 % . [facility] No Panel InformationOrdered By: Denilson Gomez on 11-12-2022 Pharmacy Creatinine Clearance (Chem N/A [facility] No Panel Informationon 11-12 38.0\S\38.0 above high threshold 25.1-36.5 [facility] [employer] 250 DO Work Phone: Comment on above: PERFORMED BY:[place] [id number] [place] [place], [place] [id number] MEDICAL DIRECTORLEVY GILES M.D. 1.1\S\1.1 Normal [facility] [employer] 250 DO Work Phone: Comment on above: [...] valves: 3 - 4.5 12.4\S\12.4 Normal 9.0-12.9 [facility] [employer] 250 DO Work Phone: 80.2\S\80.2 Normal . [facility]-Sandu marianne 250 DO Work Phone: [phone] 8.7\S\8.7 below low threshold 13.0-17.0 MP-[facility]u marianne 250 DO Work Phone: [phone] 154\S\154 Normal 150-450 -[facility] marianne 250 DO Work Phone: [phone] 12.2\S\12.2 Normal 12.0-14.8 -[facility]u marianne 250 DO Work Phone: [phone] 34.3\S\34.3 Normal 32.5-35.6 -[facility] marianne 250 DO Work Phone: [phone] 29.8\S\29.8 Normal 27.5-35.2 -[facility] marianne 250 DO Work Phone: [phone] 6.1\S\6.1 Normal 1.8-7.7 -[facility] marianne 250 DO Work Phone: [phone] 0.0\S\0.0 Normal 0-0.5 -[facility] marianne 250 DO Work Phone: [phone] 1.4\S\1.4 Normal . [facility] marianne 250 DO Work Phone: [phone] 1.9\S\1.9 Normal . -[facility] marianne 250 DO Work Phone: [phone] 3.2\S\3.2 below low threshold 3.5-5.7 -[facility] marianne 250 DO Work Phone: [phone] 13.3\S\13.3 Normal . -[facility] marianne 250 DO Work Phone: [phone] 0.1\S\0.1 Normal 0.0-0.45 -[facility]u marianne 250 DO Work Phone: [phone] Comment on above: PERFORMED BY:[facility] [place] [id number] MEDICAL DIRECTORLEVY GILES M.D. 0.2\S\0.2 Normal 0.0-0.8 [facility]-Prettyu marianne 250 DO Work Phone: [phone] 1.0\S\1.0 Normal 1.00-4.8 [facility] marianne 250 DO Work Phone: [phone] 87.0\S\87.0 Normal 83.5-101 [facility]-BlackArrowu marianne 250 DO Work Phone: [phone] 25.5\S\25.5 below low threshold 38.8-50.0 [facility]rowu marianne 250 DO Work Phone: [phone] 2.93\S\2.93 below low threshold 3.90-5.60 [facility]-BlackArrowstacy marianne 250 DO Work Phone: [phone] 7.6\S\7.6 Normal 4.1-10.5 [facility]-BlackArrowu marianne 250 DO Work Phone: [phone] 12.1\S\12.1 Normal 6.0-15.0 [facility] [employer] marianne 250 DO Work Phone: [phone] 5.3\S\5.3 Normal 3.7-7.2 [facility] [employer] marianne 250 DO Work Phone: [phone] 8.2\S\8.2 below low threshold 8.6-10.3 [facility]-BlackArrowu marianne 250 DO Work Phone: [phone] 22.5\S\22.5 Normal 21.0-31.0 [facility]-BlackArrowu marianne 250 DO Work Phone: [phone] 108\S\108 above high threshold 98-107 [facility]rowu marianne 250 DO Work Phone: [phone] 5.6\S\5.6 above high threshold 3.5-5.1 [facility] marianne 250 DO Work Phone: 137\S\137 Normal 136-145 [facility] Justin lopes 250 DO Work Phone: 4.90\S\4.90 above high threshold 0.70-1.30 [facility] Justin lopes 250 DO Work Phone: 64\S\64 above high threshold 7-25 [facility] Justin lopes 250 DO Work Phone: 236\S\236 above high threshold 70-100 [facility] Justin lopes 250 DO Work Phone: Comment on above: Random Glucose Refer ence Range is dependent on time and content of last meal. Glucose of more than 200 mg/dL in a nonstressed, ambulatory subject supports the diagnosis of Diabetes Mellitus. ADA recommended reference range 4.6\S\4.6 Normal <5.0 [facility] Justin Araiza DO Work Phone: Comment on above: PERFORMED BY:[facility] [place], [place] [id number] MEDICAL DIRECTORLEVY GILES M.D. 19\S\19 Normal [facility] Justin Araiza DO Work Phone: 97\S\97 Normal 0-149 [facility] Justni Araiza DO Work Phone: Comment on above: TRIG ATP III CLASSIF ICATION TRIG less than 150 mg/dL Normal TRIG 150-199 mg/dL Borderline high TRIG 200-500 mg/dL High TRIG greater than 500 mg/dL Very high Standard traceable to the Center for Disease Conrtrol and Prevention (CDC) test method. 31\S\31 Normal 29-71 [facility] Justin Araiza DO Work Phone: Comment on above: HDL CHOL ATP-III CLA SSIFICATION Cardiovascular Risk HDL > or equal to 60 mg/dL LOW HDL < 40 mg/dL HIGH 268.6\S\268.6 above high threshold 12-88 [facility] marianne 250 DO Work Phone: Comment on above: PERFORMED BY:[facility] [place] [id number] MEDICAL DIRECTORLEVY GILES M.D. Nucleated erythrocytes [Pres ence] in Blood by Automated countOrdered By: Denilson Gomez on 11-12-2022 Nucleated RBC Auto Ql (Bld) 0.0 /100{WBC} 0-0.5 [facility] Parathyrin.intact [Mass/volu me] in Serum or PlasmaOrdered By: Denilson Gomez on 11-12-2022 Parathyrin.intact [Mass/Vol] 268.6 pg/mL 12- [facility] Phosphate [Mass/volume] in S gretta or PlasmaOrdered By: Denilson Gomez on 11-12-2022 Phosphate [Mass/Vol] 5.3 mg/dL 3.7-7.2 [facility] Platelet mean volume Auto (B ld) [Entitic vol]Ordered By: Denilson Gomez on 11-12-2022 Platelet mean volume (Bld) [Entitic vol] 8.7 fL 6.6-10.1 [facility] Platelet poor plasma interna tional normalized ratio (INR) by coagulation assay (relatOrdered By: Denilson Gomez on 11-12-2022 INR Coag (PPP) [Relative time] 1.1 {INR} [facility] Comment on above: INR Therapeutic Rang e [...] 11-12-2022 Platelets (Bld) [#/Vol] 154 10*3/uL 150-450 [facility] Potassium [Moles/volume] in Serum or PlasmaOrdered By: Denilson Gomez on 11-12-2022 Potassium [Moles/Vol] 5.6 mmol/L 3.5-5.1 [facility] RBC Auto (Bld) [#/Vol]Ordere d By: Denilson Gomez on 11-12-2022 RBC (Bld) [#/Vol] 2.93 10*6/uL 3.90-5.60 [facility] Serum or plasma anion gap de terminationOrdered By: Denilson Gomez on 11-12-2022 Anion gap [Moles/Vol] 12.1 mmol/L 6.0-15.0 [facility] Serum or plasma high density lipoprotein (HDL) cholesterol measurementOrdered By: Denilson Gomez on 11-12-2022 Cholesterol in HDL [Mass/Vol] 31 mg/dL 29-71 [facility] Comment on above: HDL CHOL ATP-III CLA SSIFICATION Cardiovascular RiskHDL > or equal to 60 mg/dL LOWHDL < 40 mg/dL HIGH Serum or plasma total choles terol/high density lipoprotein (HDL) cholesterol mass ratOrdered By: Denilson Gomez on 11-12-2022 Cholesterol.total/Rosalind sterol in HDL [Mass ratio] 4.6 {ratio} <5.0 [facility] Sodium [Moles/volume] in Ser um or PlasmaOrdered By: Denilson Gomez on 11-12-2022 Sodium [Moles/Vol] 137 mmol/L 136-145 [facility] Triglyceride [Mass/volume] i n Serum or PlasmaOrdered By: Denilson Gomez on 11-12-2022 Triglyceride [Mass/Vol] 97 mg/dL 0-149 [facility] Comment on above: TRIG ATP III CLASSIF ICATIONTRIG less than 150 mg/dL NormalTRIG 150-199 mg/dL Borderline highTRIG 200-500 mg/dL High TRIG greater than 500 mg/dL Very highStandard traceable to the Center for Disease Conrtrol and Prevention (CDC) test method. Urea nitrogen [Mass/volume] in Serum or PlasmaOrdered By: Denilson Gomez on 11-12-2022 Urea nitrogen [Mass/Vol] 64 mg/dL 7 [facility] WBC Auto (Bld) [#/Vol]Ordere d By: Denilson Gomez on 11-12-2022 WBC (Bld) [#/Vol] 7.6 10*3/uL 4.1-10.5 [facility] Office Visit (Cardiology)on 10-18-2022 Follow-up visit Diagnoses/Problems Assessed ASHD (arteriosclerotic heart disease) (414.00) (I25.10) NSTEMI, initial episode of care (410.71) (I21.4) Status post insertion of drug eluting coronary artery stent (V45.82) (Z95.5) History of VT (myocardial infarction) (412) (I25.2) CHF (congestive heart [...] we can help. You may also call 1-189-LQUZ-NOW for free resources and assistance.; Status:Complete - [...] follow-up of a hospitalization for chest pain. [facility]. 37-year-old gentleman returns following recent hospitalization for unstable angina and hypertension and anxiety. We escalated his isosorbide and hydralazine and is feeling much better. Patient has a prior history of anterior VT in October 2021 with primary revascularization of [...] Radial Systolic1 (more content not included)... Normal [employer] Tobacco Screening.on 023 Adult depression screening assessment No -[facility] [employer] 250 DO Work Phone: Fall risk assessment a) No falls within the last year [facility] [employer] 250 DO Work Phone: Tobacco use status CPHS a) Yes M [facility] marianne 250 DO Work Phone: Tobacco Screening. Yes [facility]-Sandu marianne 250 DO Work Phone: Albumin [Mass/volume] in Ser um or PlasmaOrdered By: Angel Mejía on 10-10-2022 Albumin [Mass/Vol] 2.7 g/dL 3.2-5.[address] [facility] [address] biopsyOrdered By: Varsha ricardo on 10-10-2022 Transferrin [Mass/Vol] 150 mg/dL 180-380 [facility] Calcium [Mass/volume] in Ser um or PlasmaOrdered By: Angel Mejía on 10-10-2022 Calcium [Mass/Vol] 8.1 mg/dL 8.2-10.2 [facility] Carbon dioxide, total [Moles /volume] in Serum or PlasmaOrdered By: Angel Mejía on 10-10-2022 CO2 [Moles/Vol] 23.9 mmol/L 22.0-30.0 [facility] Creatinine [Mass/volume] in UrineOrdered By: Angel Mejía on 10-10-2022 Creatinine (U) [Mass/Vol] 84.1 mg/dL [facility] Comment on above: No reference range e stablished Creatinine and Glomerular fi ltration rate.predicted panel (S/P/Bld)Ordered By: Angel Mejía on 10-10-2022 Creatinine [Mass/Vol] 4.60 mg/dL 0.64-1.27 [facility] Erythrocyte distribution wid th Auto (RBC) [Ratio]Ordered By: Angel Mejía on 10-10-2022 Erythrocyte distribution width (RBC) [Ratio] 13.1 % 12.0-14.8 [facility] Estimated glomerular filtrat ion rate (GFR) non- AmericanOrdered By: Angel Mejía on 10-10-2022 GFR/1.73 sq M.predicted among non-blacks MDRD (S/P/Bld) [Vol rate/Area] 14 mL/Min [facility] Ferritin [Mass/volume] in Se rum or PlasmaOrdered By: Angel Mejía on 10-10-2022 Ferritin [Mass/Vol] 86.0 ng/mL 23.9-336.2 [facility] Hematocrit Auto (Bld) [Volum e fraction]Ordered By: Angel Mejía on 10-10-2022 Hematocrit (Bld) [Volume fraction] 24.0 % 38.8-50.0 [facility] Hemoglobin [Mass/volume] in BloodOrdered By: Angel Mejía on 10-10-2022 Hemoglobin (Bld) [Mass/Vol] 8.3 g/dL 13.0-17.0 [facility] Iron [Mass/volume] in Serum or PlasmaOrdered By: Angel Mejía on 10-10-2022 Iron [Mass/Vol] 55 ug/dL 40-160 [facility] Iron binding capacity [Mass/ volume] in Serum or PlasmaOrdered By: Angel Mjeía on 10-10-2022 Iron binding capacity [Mass/Vol] 210 ug/dL 255-450 [facility] Iron saturation [Mass Fracti on] in Serum or PlasmaOrdered By: Angel Mejía on 10-10-2022 Iron saturation [Mass fraction] 26.2 % 20-50 [facility] Laboratory - Chemistry and C hemistry - challengeOrdered By: Angel Mejía on 10-10-2022 Magnesium [Mass/Vol] 2.1 mg/dL 1.6-2.6 [facility] Leukocytes [#/volume] correc celena for nucleated erythrocytes in Blood by Automated counOrdered By: Angel Mejía on 10-10-2022 WBC corrected for nucl RBC Auto (Bld) [#/Vol] 5.6 10*3/uL 4.1-10.5 [facility] MCH Auto (RBC) [Entitic mass ]Ordered By: Angel Mejía on 10-10-2022 MCH (RBC) [Entitic mass] 30.4 pg 27.5-35.2 [facility] MCHC Auto (RBC) [Mass/Vol]Or dered By: Angel Mejía on 10-10-2022 MCHC (RBC) [Mass/Vol] 34.5 g/dL 32.5-35.6 [facility] MCV Auto (RBC) [Entitic vol] Ordered By: Angel Mejía on 10-10-2022 MCV (RBC) [Entitic vol] 88.2 fL 83.5-101 [facility] No Panel InformationOrdered By: Angel Mejía on 10-10-2022 25-Hydroxy Vitamin D Total 8.1 ng/mL 30-100 [facility] Comment on above: VITAMIN D STATUS 25( [place])VITAMIN D RANGE (ng/mL) Deficient <20 Insufficient 20 to <30Sufficient 30 to 100Reference: Vanna MF,Chemo NC, Sergey SIMENTAL, et al. Evaluation,treatment, and prevention of vitamin D deficiency; an Endocrine Society clinical practice guideline. JCEM. 2010; 96(7):1911-30. Estimated GFR () 17 mL/Min [facility] Comment on above: GFR estimated refere nce range: According to KDOQI guidelines, <60 ml/min/1.73m2 is sufficient to diagnose a patient with chronic kidney disease. Pharmacy Creatinine Clearance (Chem N/A [facility] Parathyrin.intact [Mass/volu me] in Serum or PlasmaOrdered By: Angel Mejía on 10-10-2022 Parathyrin.intact [Mass/Vol] 307.1 pg/mL 12-88 [facility] Phosphate [Mass/volume] in S gretta or PlasmaOrdered By: Angel Mejía on 10-10-2022 Phosphate [Mass/Vol] 6.5 mg/dL 2.5-4.6 [facility] Platelet mean volume Auto (B ld) [Entitic vol]Ordered By: Angel Mejía on 10-10-2022 Platelet mean volume (Bld) [Entitic vol] 8.3 fL 6.6-10.1 [facility] Platelets Auto (Bld) [#/Vol] Ordered By: Angel Mejía on 10-10-2022 Platelets (Bld) [#/Vol] 185 10*3/uL 150-450 [facility] Protein [Mass/volume] in Uri neOrdered By: Angel Mejía on 10-10-2022 Protein (U) [Mass/Vol] 400 mg/dL 0-9 [facility] RBC Auto (Bld) [#/Vol]Ordere d By: Angel Mejía on 10-10-2022 RBC (Bld) [#/Vol] 2.72 10*6/uL 3.90-5.60 [facility] Serum or plasma anion gap de terminationOrdered By: Angel Mejía on 10-10-2022 Anion gap [Moles/Vol] 10.1 mmol/L 6.0-15.0 [facility] Serum or plasma chloride trina surement (moles/volume)Ordered By: Angel Mejía on 10-10-2022 Chloride [Moles/Vol] 107 mmol/L 95-114 [facility] Serum or plasma glucose farida urement (mass/volume)Ordered By: Angel Mejía on 10-10-2022 Glucose [Mass/Vol] 190 mg/dL 70-100 [facility] Comment on above: ADA recommended refe rence rangeRandom Glucose Reference Range is dependent on time and content of last meal. Glucose of more than 200 mg/dL in a nonstressed, ambulatory subject supports the diagnosis of Diabetes Mellitus. Serum or plasma potassium me asurement (moles/volume)Ordered By: Angel Mejía on 10-10-2022 Potassium [Moles/Vol] 5.0 mmol/L 3.5-5.1 [facility] Serum or plasma sodium measu rement (moles/volume)Ordered By: Angel Mejía on 10-10-2022 Sodium [Moles/Vol] 136 mmol/L 136-146 [facility] Urea nitrogen [Mass/volume] in Serum or PlasmaOrdered By: Angel Mejía on 10-10-2022 Urea nitrogen [Mass/Vol] 57 mg/dL 9-23 [facility] Urine protein/creatinine rat ioOrdered By: Angel Mejía on 10-10-2022 Protein/Creatinine (U) [Ratio] 4756 mg/g{Cre} 0-200 [facility] Activated partial thrombopla stin time (aPTT) in platelet poor plasma by coagulation aOrdered By: Robyn Gr on 10-03-2022 aPTT Coag (PPP) [Time] 37.1 s 25.1-36.5 [facility] Basophils Auto (Bld) [#/Vol] Ordered By: Evert Renae on 10-03-2022 Basophils (Bld) [#/Vol] 0.1 10*3/uL 0.0-0.2 [facility] Basophils/100 WBC Auto (Bld) Ordered By: Evert Renae on 10-03-2022 Basophils/100 WBC (Bld) 1.0 % . [facility] Creatine kinase [Enzymatic a ctivity/volume] in Serum or PlasmaOrdered By: Evert Renae on 10-03-2022 CK [Catalytic activity/Vol] 213 U/L 22269 [facility] CK [Catalytic activity/Vol] 243 U/L [facility] Creatine kinase.MB [Mass/vol ume] in Serum or PlasmaOrdered By: Evert Renae on 10-03-2022 CK.MB [Mass/Vol] 5.6 ng/mL 0.6-6.3 [facility] CK.MB [Mass/Vol] 5.9 ng/mL 0.6-6.3 [facility] Creatinine and Glomerular fi ltration rate.predicted panel (S/P/Bld)Ordered By: Evert Renae on 10-03-2022 Creatinine [Mass/Vol] 4.17 mg/dL 0.64-1.27 [facility] Eosinophils Auto (Bld) [#/Vo l]Ordered By: Evert Renae on 10-03-2022 Eosinophils (Bld) [#/Vol] 0.2 10*3/uL 0.0-0.45 [facility] Eosinophils/100 WBC Auto (Bl d)Ordered By: Evert Renae on 10-03-2022 Eosinophils/100 WBC (Bld) 2.7 % . [facility] Erythrocyte distribution wid th Auto (RBC) [Ratio]Ordered By: Evert Renae on 10-03-2022 Erythrocyte distribution width (RBC) [Ratio] 13.3 % 12.0-14.8 [facility] Estimated glomerular filtrat ion rate (GFR) non- AmericanOrdered By: Evert Renae on 10-03-2022 GFR/1.73 sq M.predicted among non-blacks MDRD (S/P/Bld) [Vol rate/Area] 16 mL/Min [facility] Glucose Glucometer (BldC) [M ass/Vol]Ordered By: Ross Catherine on 10-03-2022 Glucose [Mass/Vol] 214 mg/dL [facility] Comment on above: Random Glucose Refer ence Range is dependent on time and content of last meal. Glucose of more than 200 mg/dL in a nonstressed, ambulatory subject supports the diagnosis of Diabetes Mellitus. Hematocrit Auto (Bld) [Volum e fraction]Ordered By: Evert Renae on 10-03-2022 Hematocrit (Bld) [Volume fraction] 24.9 % 38.8-50.0 [facility] Hemoglobin [Mass/volume] in BloodOrdered By: Evert Renae on 10-03-2022 Hemoglobin (Bld) [Mass/Vol] 8.5 g/dL 13.0-17.0 [facility] Leukocytes [#/volume] correc celena for nucleated erythrocytes in Blood by Automated counOrdered By: Evert Renae on 10-03-2022 WBC corrected for nucl RBC Auto (Bld) [#/Vol] 6.4 10*3/uL 4.1-10.5 [facility] Lymphocytes Auto (Bld) [#/Vo l]Ordered By: Evert Renae on 10-03-2022 Lymphocytes (Bld) [#/Vol] 1.7 10*3/uL 1.00-4.8 [facility] Lymphocytes/100 WBC Auto (Bl d)Ordered By: Evert Renae on 10-03-2022 Lymphocytes/100 WBC (Bld) 26.3 % . [facility] MCH Auto (RBC) [Entitic mass ]Ordered By: Evert Renae on 10-03-2022 MCH (RBC) [Entitic mass] 29.8 pg 27.5-35.2 [facility] MCHC Auto (RBC) [Mass/Vol]Or dered By: Evert Renae on 10-03-2022 MCHC (RBC) [Mass/Vol] 34.3 g/dL 32.5-35.6 [facility] MCV Auto (RBC) [Entitic vol] Ordered By: Evert Renae on 10-03-2022 MCV (RBC) [Entitic vol] 86.9 fL 83.5-101 [facility] Monocytes Auto (Bld) [#/Vol] Ordered By: Evert Renae on 10-03-2022 Monocytes (Bld) [#/Vol] 0.3 10*3/uL 0.0-0.8 [facility] Monocytes/100 WBC Auto (Bld) Ordered By: Evert Renae on 10-03-2022 Monocytes/100 WBC (Bld) 5.4 % . [facility] Neutrophils Auto (Bld) [#/Vo l]Ordered By: Evert Renae on 10-03-2022 Neutrophils (Bld) [#/Vol] 4.1 10*3/uL 1.8-7.7 [facility] Neutrophils/100 WBC Auto (Bl d)Ordered By: Evert Renae on 10-03-2022 Neutrophils/100 WBC (Bld) 64.6 % . [facility] No Panel InformationOrdered By: Ross Catherine on 10-03-2022 Bedside Glucose Comment Glu2: cleaned meter [facility] No Panel InformationOrdered By: Evert Renae on 10-03-2022 Estimated GFR () 20 mL/Min [facility] Comment on above: GFR estimated refere nce range: According to KDOQI guidelines, <60 ml/min/1.73m2 is sufficient to diagnose a patient with chronic kidney disease. Pharmacy Creatinine Clearance (Chem 25.45 [facility] Nucleated erythrocytes [Pres ence] in Blood by Automated countOrdered By: Evert Renae on 10-03-2022 Nucleated RBC Auto Ql (Bld) 0.2 /100{WBC} 0-0.5 [facility] Platelet mean volume Auto (B ld) [Entitic vol]Ordered By: Evert Renae on 10-03-2022 Platelet mean volume (Bld) [Entitic vol] 8.2 fL 6.6-10.1 [facility] Platelets Auto (Bld) [#/Vol] Ordered By: Evert Renae on 10-03-2022 Platelets (Bld) [#/Vol] 176 10*3/uL 150-450 [facility] RBC Auto (Bld) [#/Vol]Ordere d By: Evert Renae on 10-03-2022 RBC (Bld) [#/Vol] 2.86 10*6/uL 3.90-5.60 [facility] Serum or plasma anion gap de terminationOrdered By: Evert Renae on 10-03-2022 Anion gap [Moles/Vol] 10.1 mmol/L 6.0-15.0 [facility] Serum or plasma calcium farida urement (mass/volume)Ordered By: Evert Renae on 10-03-2022 Calcium [Mass/Vol] 8.0 mg/dL 8.2-10.2 [facility] Serum or plasma chloride trina surement (moles/volume)Ordered By: Evert Renae on 10-03-2022 Chloride [Moles/Vol] 108 mmol/L 95-114 [facility] Serum or plasma creatine kin ase MB (CKMB)/total creatine kinase (CK) ratio by calculaOrdered By: Evert Renae on 10-03-2022 CK.MB Calc [Catalytic fraction] 2.6 % 0.00-2.50 [facility] CK.MB Calc [Catalytic fraction] 2.4 % 0.00-2.50 [facility] Serum or plasma glucose farida urement (mass/volume)Ordered By: Evert Renae on 10-03-2022 Glucose [Mass/Vol] 248 mg/dL 70-100 [facility] Comment on above: ADA recommended refe rence rangeRandom Glucose Reference Range is dependent on time and content of last meal. Glucose of more than 200 mg/dL in a nonstressed, ambulatory subject supports the diagnosis of Diabetes Mellitus. Serum or plasma potassium me asurement (moles/volume)Ordered By: Evert Renae on 10-03-2022 Potassium [Moles/Vol] 4.7 mmol/L 3.5-5.1 [facility] Serum or plasma sodium measu rement (moles/volume)Ordered By: Evert Renae on 10-03-2022 Sodium [Moles/Vol] 136 mmol/L 136-146 [facility] Serum or plasma total carbon dioxide measurement (moles/volume)Ordered By: Evert Renae on 10-03-2022 CO2 [Moles/Vol] 22.6 mmol/L 22.0-30.0 [facility] Serum or plasma urea nitroge n measurement (mass/volume)Ordered By: Evert Renae on 10-03-2022 Urea nitrogen [Mass/Vol] 55 mg/dL 9-23 [facility] Troponin I.cardiac [Mass/vol ume] in Serum or Plasma by High sensitivity methodOrdered By: Evert Renae on 10-03-2022 Troponin I.cardiac High sensitivity method [Mass/Vol] 18 pg/mL 0-20 [facility] Troponin I.cardiac High sensitivity method [Mass/Vol] 18 pg/mL 0-20 [facility] WBC Auto (Bld) [#/Vol]Ordere d By: Evert Renae on 10-03-2022 WBC (Bld) [#/Vol] 6.4 10*3/uL 4.1-10.5 [facility] Basophils Auto (Bld) [#/Vol] Ordered By: Robyn Gr on 10-02-2022 Basophils (Bld) [#/Vol] 0.1 10*3/uL 0.0-0.2 [facility] Basophils/100 WBC Auto (Bld) Ordered By: Robyn Gr on 10-02-2022 Basophils/100 WBC (Bld) 1.7 % . [facility] Creatinine and Glomerular fi ltration rate.predicted panel (S/P/Bld)Ordered By: Robyn Gr on 10-02-2022 Creatinine [Mass/Vol] 4.16 mg/dL 0.64-1.27 [facility] Eosinophils Auto (Bld) [#/Vo l]Ordered By: Robyn Gr on 10-02-2022 Eosinophils (Bld) [#/Vol] 0.2 10*3/uL 0.0-0.45 [facility] Eosinophils/100 WBC Auto (Bl d)Ordered By: Robyn Gr on 10-02-2022 Eosinophils/100 WBC (Bld) 2.7 % . [facility] Erythrocyte distribution wid th Auto (RBC) [Ratio]Ordered By: Robyn Gr on 10-02-2022 Erythrocyte distribution width (RBC) [Ratio] 13.2 % 12.0-14.8 [facility] Estimated glomerular filtrat ion rate (GFR) non- AmericanOrdered By: Robyn Gr on 10-02-2022 GFR/1.73 sq M.predicted among non-blacks MDRD (S/P/Bld) [Vol rate/Area] 16 mL/Min [facility] Hematocrit Auto (Bld) [Volum e fraction]Ordered By: Robyn Gr on 10-02-2022 Hematocrit (Bld) [Volume fraction] 23.8 % 38.8-50.0 [facility] Hemoglobin [Mass/volume] in BloodOrdered By: Robyn Gr on 10-02-2022 Hemoglobin (Bld) [Mass/Vol] 8.3 g/dL 13.0-17.0 [facility] Laboratory - Chemistry and C hemistry - challengeOrdered By: Robyn Gr on 10-02-2022 Natriuretic peptide B (Bld) [Mass/Vol] 381.0 pg/mL 5-100 [facility] Laboratory - CoagulationOrde red By: Robyn Gr on 10-02-2022 PT Coag (PPP) [Time] 12.1 s 9.0-12.9 [facility] Leukocytes [#/volume] correc celena for nucleated erythrocytes in Blood by Automated counOrdered By: Robyn Gr on 10-02-2022 WBC corrected for nucl RBC Auto (Bld) [#/Vol] 7.2 10*3/uL 4.1-10.5 [facility] Lymphocytes Auto (Bld) [#/Vo l]Ordered By: Robyn Gr on 10-02-2022 Lymphocytes (Bld) [#/Vol] 1.4 10*3/uL 1.00-4.8 [facility] Lymphocytes/100 WBC Auto (Bl d)Ordered By: Robyn Gr on 10-02-2022 Lymphocytes/100 WBC (Bld) 19.9 % . [facility] MCH Auto (RBC) [Entitic mass ]Ordered By: Robyn Gr on 10-02-2022 MCH (RBC) [Entitic mass] 30.4 pg 27.5-35.2 [facility] MCHC Auto (RBC) [Mass/Vol]Or dered By: Robyn Gr on 10-02-2022 MCHC (RBC) [Mass/Vol] 34.9 g/dL 32.5-35.6 [facility] MCV Auto (RBC) [Entitic vol] Ordered By: Robyn Gr on 10-02-2022 MCV (RBC) [Entitic vol] 87.1 fL 83.5-101 [facility] Monocyte distribution width [Entitic volume] in Blood by AutomatedOrdered By: Robyn Gr on 10-02-2022 Monocyte distribution width Auto (Bld) [Entitic vol] 14.39 % 0.00-20.00 [facility] Monocytes Auto (Bld) [#/Vol] Ordered By: Robyn Gr on 10-02-2022 Monocytes (Bld) [#/Vol] 0.4 10*3/uL 0.0-0.8 [facility] Monocytes/100 WBC Auto (Bld) Ordered By: Robyn Gr on 10-02-2022 Monocytes/100 WBC (Bld) 5.5 % . [facility] Neutrophils Auto (Bld) [#/Vo l]Ordered By: Robyn Gr on 10-02-2022 Neutrophils (Bld) [#/Vol] 5.1 10*3/uL 1.8-7.7 [facility] Neutrophils/100 WBC Auto (Bl d)Ordered By: Robyn Gr on 10-02-2022 Neutrophils/100 WBC (Bld) 70.2 % . [facility] No Panel InformationOrdered By: Robyn Gr on 10-02-2022 Estimated GFR () 20 mL/Min [facility] Comment on above: GFR estimated refere nce range: According to KDOQI guidelines, <60 ml/min/1.73m2 is sufficient to diagnose a patient with chronic kidney disease. Pharmacy Creatinine Clearance (Chem 25.83 [facility] Nucleated erythrocytes [Pres ence] in Blood by Automated countOrdered By: Robyn Gr on 10-02-2022 Nucleated RBC Auto Ql (Bld) 0.0 /100{WBC} 0-0.5 [facility] Platelet mean volume Auto (B ld) [Entitic vol]Ordered By: Robyn Gr on 10-02-2022 Platelet mean volume (Bld) [Entitic vol] 8.2 fL 6.6-10.1 [facility] Platelet poor plasma interna tional normalized ratio (INR) by coagulation assay (relatOrdered By: Robyn Gr on 10-02-2022 INR Coag (PPP) [Relative time] 1.0 {INR} [facility] Comment on above: INR Therapeutic Rang e [...] 4.5 Platelets Auto (Bld) [#/Vol] Ordered By: Robyn Gr on 10-02-2022 Platelets (Bld) [#/Vol] 185 10*3/uL 150-450 [facility] RBC Auto (Bld) [#/Vol]Ordere d By: Robyn Gr on 10-02-2022 RBC (Bld) [#/Vol] 2.74 10*6/uL 3.90-5.60 [facility] Serum or plasma anion gap de terminationOrdered By: Robyn Gr on 10-02-2022 Anion gap [Moles/Vol] 15.1 mmol/L 6.0-15.0 [facility] Serum or plasma calcium farida urement (mass/volume)Ordered By: Robyn Gr on 10-02-2022 Calcium [Mass/Vol] 8.2 mg/dL 8.2-10.2 [facility] Serum or plasma chloride trina surement (moles/volume)Ordered By: Robyn Gr on 10-02-2022 Chloride [Moles/Vol] 103 mmol/L 95-114 [facility] Serum or plasma glucose farida urement (mass/volume)Ordered By: Robyn Gr on 10-02-2022 Glucose [Mass/Vol] 223 mg/dL 70-100 [facility] Comment on above: ADA recommended refe rence rangeRandom Glucose Reference Range is dependent on time and content of last meal. Glucose of more than 200 mg/dL in a nonstressed, ambulatory subject supports the diagnosis of Diabetes Mellitus. Serum or plasma potassium me asurement (moles/volume)Ordered By: Robyn Gr on 10-02-2022 Potassium [Moles/Vol] 4.4 mmol/L 3.5-5.1 [facility] Serum or plasma sodium measu rement (moles/volume)Ordered By: Robyn Gr on 10-02-2022 Sodium [Moles/Vol] 135 mmol/L 136-146 [facility] Serum or plasma total carbon dioxide measurement (moles/volume)Ordered By: Robyn Gr on 10-02-2022 CO2 [Moles/Vol] 21.3 mmol/L 22.0-30.0 [facility] Serum or plasma urea nitroge n measurement (mass/volume)Ordered By: Robyn Gr on 10-02-2022 Urea nitrogen [Mass/Vol] 54 mg/dL 05-11 [facility] WBC Auto (Bld) [#/Vol]Ordere d By: Robyn Gr on 10-02-2022 WBC (Bld) [#/Vol] 7.2 10*3/uL 4.1-10.5 [facility] Glucose Glucometer (BldC) [M ass/Vol]Ordered By: Romain Mendoza on 09-17-2022 Glucose [Mass/Vol] 178 mg/dL [facility] Comment on above: Random Glucose Refer ence Range is dependent on time and content of last meal. Glucose of more than 200 mg/dL in a nonstressed, ambulatory subject supports the diagnosis of Diabetes Mellitus. No Panel InformationOrdered By: Romain Mendoza on 09-17-2022 Bedside Glucose Comment Glu2: cleaned meter [facility] Serum or plasma potassium me asurement (moles/volume)Ordered By: Romain Mendoza on 09-17-2022 Potassium [Moles/Vol] 4.4 mmol/L 3.5-5.1 [facility] Basophils Auto (Bld) [#/Vol] Ordered By: Romain Mendoza on 09-10-2022 Basophils (Bld) [#/Vol] 0.1 10*3/uL 0.0-0.2 [facility] Basophils/100 WBC Auto (Bld) Ordered By: Romain Mendoza on 09-10-2022 Basophils/100 WBC (Bld) 1.4 % . [facility] Creatinine and Glomerular fi ltration rate.predicted panel (S/P/Bld)Ordered By: Romain Mendoza on 09-10-2022 Creatinine [Mass/Vol] 3.72 mg/dL 0.64-1.27 [facility] Eosinophils Auto (Bld) [#/Vo l]Ordered By: Romain Mendoza on 09-10-2022 Eosinophils (Bld) [#/Vol] 0.1 10*3/uL 0.0-0.45 [facility] Eosinophils/100 WBC Auto (Bl d)Ordered By: Romain Mendoza on 09-10-2022 Eosinophils/100 WBC (Bld) 2.1 % . [facility] Erythrocyte distribution wid th Auto (RBC) [Ratio]Ordered By: Romain Mendoza on 09-10-2022 Erythrocyte distribution width (RBC) [Ratio] 13.5 % 12.0-14.8 [facility] Estimated glomerular filtrat ion rate (GFR) non- AmericanOrdered By: Romain Mendoza on 09-10-2022 GFR/1.73 sq M.predicted among non-blacks MDRD (S/P/Bld) [Vol rate/Area] 18 mL/Min [facility] Hematocrit Auto (Bld) [Volum e fraction]Ordered By: Romain Mendoza on 09-10-2022 Hematocrit (Bld) [Volume fraction] 24.2 % 38.8-50.0 [facility] Hemoglobin [Mass/volume] in BloodOrdered By: Romain Mendoza on 09-10-2022 Hemoglobin (Bld) [Mass/Vol] 8.3 g/dL 13.0-17.0 [facility] Leukocytes [#/volume] correc celena for nucleated erythrocytes in Blood by Automated counOrdered By: Romain Mendoza on 09-10-2022 WBC corrected for nucl RBC Auto (Bld) [#/Vol] 6.7 10*3/uL 4.1-10.5 [facility] Lymphocytes Auto (Bld) [#/Vo l]Ordered By: Romain Mendoza on 09-10-2022 Lymphocytes (Bld) [#/Vol] 1.5 10*3/uL 1.00-4.8 [facility] Lymphocytes/100 WBC Auto (Bl d)Ordered By: Romain Mendoza on 09-10-2022 Lymphocytes/100 WBC (Bld) 22.2 % . [facility] MCH Auto (RBC) [Entitic mass ]Ordered By: Romain Mendoza on 09-10-2022 MCH (RBC) [Entitic mass] 29.8 pg 27.5-35.2 [facility] MCHC Auto (RBC) [Mass/Vol]Or dered By: Romain Mendoza on 09-10-2022 MCHC (RBC) [Mass/Vol] 34.4 g/dL 32.5-35.6 [facility] MCV Auto (RBC) [Entitic vol] Ordered By: Romain Mendoza on 09-10-2022 MCV (RBC) [Entitic vol] 86.7 fL 83.5-101 [facility] Monocytes Auto (Bld) [#/Vol] Ordered By: Romain Mendoza on 09-10-2022 Monocytes (Bld) [#/Vol] 0.4 10*3/uL 0.0-0.8 [facility] Monocytes/100 WBC Auto (Bld) Ordered By: Romain Mendoza on 09-10-2022 Monocytes/100 WBC (Bld) 5.5 % . [facility] Neutrophils Auto (Bld) [#/Vo l]Ordered By: Romain Mendoza on 09-10-2022 Neutrophils (Bld) [#/Vol] 4.6 10*3/uL 1.8-7.7 [facility] Neutrophils/100 WBC Auto (Bl d)Ordered By: Romain Mendoza on 09-10-2022 Neutrophils/100 WBC (Bld) 68.8 % . [facility] No Panel InformationOrdered By: Romain Mendoza on 09-10-2022 Estimated GFR () 22 mL/Min [facility] Comment on above: GFR estimated refere nce range: According to KDOQI guidelines, <60 ml/min/1.73m2 is sufficient to diagnose a patient with chronic kidney disease. Pharmacy Creatinine Clearance (Chem N/A [facility] Nucleated erythrocytes [Pres ence] in Blood by Automated countOrdered By: Romain Mendoza on 09-10-2022 Nucleated RBC Auto Ql (Bld) 0.1 /100{WBC} 0-0.5 [facility] Platelet mean volume Auto (B ld) [Entitic vol]Ordered By: Romain Mendoza on 09-10-2022 Platelet mean volume (Bld) [Entitic vol] 8.4 fL 6.6-10.1 [facility] Platelets Auto (Bld) [#/Vol] Ordered By: Romain Mendoza on 09-10-2022 Platelets (Bld) [#/Vol] 187 10*3/uL 150-450 [facility] RBC Auto (Bld) [#/Vol]Ordere d By: Romain Mendoza on 09-10-2022 RBC (Bld) [#/Vol] 2.79 10*6/uL 3.90-5.60 [facility] Serum or plasma anion gap de terminationOrdered By: Romain Mendoza on 09-10-2022 Anion gap [Moles/Vol] 11.9 mmol/L 6.0-15.0 [facility] Serum or plasma calcium farida urement (mass/volume)Ordered By: Romain Mendoza on 09-10-2022 Calcium [Mass/Vol] 8.1 mg/dL 8.2-10.2 [facility] Serum or plasma chloride trina surement (moles/volume)Ordered By: Romain Mendoza on 09-10-2022 Chloride [Moles/Vol] 105 mmol/L 95-114 [facility] Serum or plasma glucose farida urement (mass/volume)Ordered By: Romain Mendoza on 09-10-2022 Glucose [Mass/Vol] 168 mg/dL 70-100 [facility] Comment on above: ADA recommended refe rence rangeRandom Glucose Reference Range is dependent on time and content of last meal. Glucose of more than 200 mg/dL in a nonstressed, ambulatory subject supports the diagnosis of Diabetes Mellitus. Serum or plasma potassium me asurement (moles/volume)Ordered By: Romain Mendoza on 09-10-2022 Potassium [Moles/Vol] 4.3 mmol/L 3.5-5.1 [facility] Serum or plasma sodium measu rement (moles/volume)Ordered By: Romain Mendoza on 09-10-2022 Sodium [Moles/Vol] 135 mmol/L 136-146 [facility] Serum or plasma total carbon dioxide measurement (moles/volume)Ordered By: Romain Mendoza on 09-10-2022 CO2 [Moles/Vol] 22.4 mmol/L 22.0-30.0 [facility] Serum or plasma urea nitroge n measurement (mass/volume)Ordered By: Romain Mendoza on 09-10-2022 Urea nitrogen [Mass/Vol] 48 mg/dL 9-23 [facility] WBC Auto (Bld) [#/Vol]Ordere d By: Romain Mendoza on 09-10-2022 WBC (Bld) [#/Vol] 6.7 10*3/uL 4.1-10.5 [facility] Albumin [Mass/volume] in Ser um or PlasmaOrdered By: Jorje Small on 09-01-2022 Albumin [Mass/Vol] 2.9 g/dL 2.9-4.4 [facility] Automated erythrocytes count in urine sediment (number/area)Ordered By: Robyn Guerin on 09-01-2022 RBC Auto (Urine sed) [#/Area] 5-9 [HPF] 0-4 [facility] Automated leukocytes count i n urine sediment (number/area)Ordered By: Robyn Guerin on 09-01-2022 WBC Auto (Urine sed) [#/Area] 5-9 [HPF] 0-4 [facility] Automated urine hyaline cast s count (number/volume)Ordered By: Robyn Guerin on 09-01-2022 Hyaline casts Auto (U) [#/Vol] 0-8 [LPF] 0-1 [facility] Basophils Auto (Bld) [#/Vol] Ordered By: Jorje Small on 09-01-2022 Basophils (Bld) [#/Vol] 0.1 10*3/uL 0.0-0.2 [facility] Basophils/100 WBC Auto (Bld) Ordered By: Jorje Small on 09-01-2022 Basophils/100 WBC (Bld) 1.7 % . [facility] Bilirubin Test strip Ql (U)O rdered By: Robyn Guerin on 09-01-2022 Bilirubin Ql (U) Negative Negative [facility] Casts typing in urine sedime nt by light microscopyOrdered By: Robyn Guerin on 09-01-2022 Casts LM Nom (Urine sed) None seen [LPF] None Seen [facility] Color Auto (U)Ordered By: Oanh Guerin on 09-01-2022 Color (U) Yellow Yellow [facility] Eosinophils Auto (Bld) [#/Vo l]Ordered By: Jorje Small on 09-01-2022 Eosinophils (Bld) [#/Vol] 0.1 10*3/uL 0.0-0.45 [facility] Eosinophils/100 WBC Auto (Bl d)Ordered By: Jorje Small on 09-01-2022 Eosinophils/100 WBC (Bld) 2.3 % . [facility] Erythrocyte distribution wid th Auto (RBC) [Ratio]Ordered By: Jorje Small on 09-01-2022 Erythrocyte distribution width (RBC) [Ratio] 13.2 % 12.0-14.8 [facility] Fine granular cast count in urine sediment by microscopy (number/low power field )Ordered By: Robyn Guerin on 09-01-2022 Fine Granular Casts LM.LPF (Urine sed) [#/Area] 3-4 [LPF] 0-1 [facility] Hematocrit Auto (Bld) [Volum e fraction]Ordered By: Jorje Small on 09-01-2022 Hematocrit (Bld) [Volume fraction] 27.2 % 38.8-50.0 [facility] Hemoglobin [Mass/volume] in BloodOrdered By: Jorje Small on 09-01-2022 Hemoglobin (Bld) [Mass/Vol] 9.5 g/dL 13.0-17.0 [facility] IgA [Mass/volume] in Serum o r PlasmaOrdered By: Jorje Small on 09-01-2022 IgA [Mass/Vol] 314 mg/dL 90-386 [facility] IgG [Mass/volume] in Serum o r PlasmaOrdered By: Jorje Small on 09-01-2022 IgG [Mass/Vol] 1043 mg/dL 603-1613 [facility] IgM [Mass/volume] in Serum o r PlasmaOrdered By: Jorje Small on 09-01-2022 IgM [Mass/Vol] 189 mg/dL 20-172 [facility] Comment on above: Performed at: [address] [id number] Director: Pablito Alexander PhD, Phone: [phone] Immunoglobulin light chains. kappa.free [Mass/volume] in SerumOrdered By: Jorje Small on 09-01-2022 Immunoglobulin light chains.kappa.free (S) [Mass/Vol] 128.0 mg/L 3.3-19.4 [facility] Immunoglobulin light chains. kappa.free/Immunoglobulin light chains.lambda.free [MassOrdered By: Jorje Small on 09-01-2022 Immunoglobulin light chains.kappa.free/Immun oglobulin light chains.lambda.free (S) [Mass ratio] 1.65 0.26-1.65 [facility] Comment on above: Performed at: [address] [id number] Director: Pablito Alexander PhD, Phone: [phone] Immunoglobulin light chains. lambda.free [Mass/volume] in Serum or PlasmaOrdered By: Jorje Small on 09-01-2022 Immunoglobulin light chains.lambda.free [Mass/Vol] 77.5 mg/L 5.7-26.3 [facility] Ketones Auto test strip (U) [Mass/Vol]Ordered By: Robyn Guerin on 09-01-2022 Ketones (U) [Mass/Vol] Negative Negative [facility] Leukocytes [#/volume] correc celena for nucleated erythrocytes in Blood by Automated counOrdered By: Jorje Small on 09-01-2022 WBC corrected for nucl RBC Auto (Bld) [#/Vol] 6.2 10*3/uL 4.1-10.5 [facility] Lymphocytes Auto (Bld) [#/Vo l]Ordered By: Jorje Small on 09-01-2022 Lymphocytes (Bld) [#/Vol] 1.3 10*3/uL 1.00-4.8 [facility] Lymphocytes/100 WBC Auto (Bl d)Ordered By: Jorje Small on 09-01-2022 Lymphocytes/100 WBC (Bld) 20.4 % . [facility] MCH Auto (RBC) [Entitic mass ]Ordered By: Jorje Small on 09-01-2022 MCH (RBC) [Entitic mass] 30.1 pg 27.5-35.2 [facility] MCHC Auto (RBC) [Mass/Vol]Or dered By: Jorje Small on 09-01-2022 MCHC (RBC) [Mass/Vol] 34.9 g/dL 32.5-35.6 [facility] MCV Auto (RBC) [Entitic vol] Ordered By: Jorje Small on 09-01-2022 MCV (RBC) [Entitic vol] 86.2 fL 83.5-101 [facility] Monocytes Auto (Bld) [#/Vol] Ordered By: Jorje Small on 09-01-2022 Monocytes (Bld) [#/Vol] 0.3 10*3/uL 0.0-0.8 [facility] Monocytes/100 WBC Auto (Bld) Ordered By: Jorje Small on 09-01-2022 Monocytes/100 WBC (Bld) 5.5 % . [facility] Neutrophils Auto (Bld) [#/Vo l]Ordered By: Jorje Small on 09-01-2022 Neutrophils (Bld) [#/Vol] 4.3 10*3/uL 1.8-7.7 [facility] Neutrophils/100 WBC Auto (Bl d)Ordered By: Jorje Small on 09-01-2022 Neutrophils/100 WBC (Bld) 70.1 % . [facility] Nitrite Test strip Ql (U)Ord ered By: Robyn Guerin on 09-01-2022 Nitrite Ql (U) Negative Negative [facility] No Panel InformationOrdered By: Robyn Guerin on 09-01-2022 Miscellaneous Test See comment [facility] Comment on above: See report. Scanned copy available in EMR. No Panel InformationOrdered By: Jorje Small on 09-01-2022 Protein Electrophoresis [place] Not observed g/dL Not Observed [facility] Protein Electrophoresis Note See comment . [facility] Comment on above: Protein electrophore sis scan will follow via computer,mail, or neon electrician delivery.Performed at: - [facility] [id number] Director: Pablito Alexander PhD, Phone: [phone] Serum Immunofixation Comment: . [facility] Comment on above: Presence of monoclon al protein is unclear at this time. Suggestrepeat in 3 to 6 months if clinically indicated. Nucleated erythrocytes [Pres ence] in Blood by Automated countOrdered By: Jorje Small on 09-01-2022 Nucleated RBC Auto Ql (Bld) 0.2 /100{WBC} 0-0.5 [facility] Platelet mean volume Auto (B ld) [Entitic vol]Ordered By: Jorje Small on 09-01-2022 Platelet mean volume (Bld) [Entitic vol] 8.3 fL 6.6-10.1 [facility] Platelets Auto (Bld) [#/Vol] Ordered By: Jorje Small on 09-01-2022 Platelets (Bld) [#/Vol] 217 10*3/uL 150-450 [facility] Protein Auto test strip (U) [Mass/Vol]Ordered By: Robyn Guerin on 09-01-2022 Protein (U) [Mass/Vol] mg/dL Negative [facility] Protein [Mass/volume] in Ser um or PlasmaOrdered By: Jorje Small on 09-01-2022 Protein [Mass/Vol] 5.9 g/dL 6.0-8.5 [facility] RBC Auto (Bld) [#/Vol]Ordere d By: Jorje Small on 09-01-2022 RBC (Bld) [#/Vol] 3.16 10*6/uL 3.90-5.60 [facility] Serum globulin measurement ( mass/volume)Ordered By: Jorje Small on 09-01-2022 Globulin (S) [Mass/Vol] 3.0 g/dL 2.2-3.9 [facility] Serum or plasma albumin/glob ulin mass ratioOrdered By: Jorje Small on 09-01-2022 Albumin/Globulin [Mass ratio] 1.0 {ratio} 0.7-1.7 [facility] Serum or plasma alpha 1 glob ulin measurement by electrophoresis (mass/volume)Ordered By: Jorje Small on 09-01-2022 Alpha 1 globulin Elph [Mass/Vol] 0.2 g/dL 0.0-0.4 [facility] Serum or plasma alpha 2 glob ulin measurement by electrophoresis (mass/volume)Ordered By: Jorje Small on 09-01-2022 Alpha 2 globulin Elph [Mass/Vol] 0.9 g/dL 0.4-1.0 [facility] Serum or plasma beta globuli n measurement by electrophoresis (mass/volume)Ordered By: Jorje Small on 09-01-2022 Beta globulin Elph [Mass/Vol] 0.8 g/dL 0.7-1.3 [facility] Serum or plasma gamma globul in measurement by electrophoresis (mass/volume)Ordered By: Jorje Small on 09-01-2022 Gamma globulin Elph [Mass/Vol] 1.1 g/dL 0.4-1.8 [facility] Specific gravity Auto test s trip (U) [Rel density]Ordered By: Robyn Guerin on 09-01-2022 Specific gravity (U) [Rel density] 1.016 1.001-1.03 0 [facility] Squamous epithelial cells de tection in urine sediment by light microscopyOrdered By: Robyn Guerin on 09-01-2022 Epithelial cells.squamous LM Ql (Urine sed) 5-9 [HPF] 0-2 [facility] Urine bacteria detection by automated methodOrdered By: Robyn Guerin on 09-01-2022 Bacteria Auto Ql (U) None seen None Seen [facility] Urine clarity by refractomet ry automatedOrdered By: Robyn Guerin on 09-01-2022 Clarity Refractometry automated (U) Cloudy Clear [facility] Urine glucose measurement by automated test strip (mass/volume)Ordered By: Robyn Guerin on 09-01-2022 Glucose Auto test strip (U) [Mass/Vol] >=1000 mg/dL Normal [facility] Urine hemoglobin detection b y automated test stripOrdered By: Robyn Guerin on 09-01-2022 Hemoglobin Auto test strip Ql (U) Trace Negative [facility] Urine leukocyte esterase det ection by automated test stripOrdered By: Robyn Guerin on 09-01-2022 Leukocyte esterase Auto test strip Ql (U) Negative Negative [facility] Urine microalbumin measureme nt with detection limit of 20 mg/L or less (mass/volume)Ordered By: Robyn Guerin on 09-01-2022 Albumin DL <= 20 mg/L (U) [Mass/Vol] See comment 0.0-1.8 [facility] Comment on above: SENT TO [facility] REPORT Urine sediment renal epithel ial cell count by microscopy (number/high power field)Ordered By: Robyn Guerin on 09-01-2022 Epithelial cells.renal LM.HPF (Urine sed) [#/Area] None seen [HPF] 0-1 [facility] Urobilinogen Auto test strip (U) [Mass/Vol]Ordered By: Robyn Guerin on 09-01-2022 Urobilinogen (U) [Mass/Vol] Normal mg/dL Normal [facility] WBC Auto (Bld) [#/Vol]Ordere d By: Jorje Small on 09-01-2022 WBC (Bld) [#/Vol] 6.2 10*3/uL 4.1-10.5 [facility] pH Auto test strip (U)Ordere d By: Robyn Guerin on 09-01-2022 pH (U) 5.0 [pH] 5.0-9.0 [facility] Albumin [Mass/volume] in Ser um or PlasmaOrdered By: Angel Mejía on 08-17-2022 Albumin [Mass/Vol] 2.6 g/dL 3.2-5.[address] [facility] [address] biopsyOrdered By: Varsha ricrado on 08-17-2022 Transferrin [Mass/Vol] 143 mg/dL 180-380 [facility] Creatinine and Glomerular fi ltration rate.predicted panel (S/P/Bld)Ordered By: Angel Mejía on 08-17-2022 Creatinine [Mass/Vol] 3.58 mg/dL 0.64-1.27 [facility] Erythrocyte distribution wid th Auto (RBC) [Ratio]Ordered By: Angel Mejía on 08-17-2022 Erythrocyte distribution width (RBC) [Ratio] 13.6 % 12.0-14.8 [facility] Estimated glomerular filtrat ion rate (GFR) non- AmericanOrdered By: Angel Mejía on 08-17-2022 GFR/1.73 sq M.predicted among non-blacks MDRD (S/P/Bld) [Vol rate/Area] 19 mL/Min [facility] Ferritin [Mass/volume] in Se rum or PlasmaOrdered By: Angel Mejía on 08-17-2022 Ferritin [Mass/Vol] 135.6 ng/mL 23.9-336.2 [facility] Hematocrit Auto (Bld) [Volum e fraction]Ordered By: Angel Mejía on 08-17-2022 Hematocrit (Bld) [Volume fraction] 28.6 % 38.8-50.0 [facility] Hemoglobin [Mass/volume] in BloodOrdered By: Angel Kym on 08-17-2022 Hemoglobin (Bld) [Mass/Vol] 10.0 g/dL 13.0-17.0 [facility] Iron [Mass/volume] in Serum or PlasmaOrdered By: Angel Kym on 08-17-2022 Iron [Mass/Vol] 68 ug/dL 40-160 [facility] Iron binding capacity [Mass/ volume] in Serum or PlasmaOrdered By: Angel Kym on 08-17-2022 Iron binding capacity [Mass/Vol] 200 ug/dL 255-450 [facility] Iron saturation [Mass Fracti on] in Serum or PlasmaOrdered By: Angel Kym on 08-17-2022 Iron saturation [Mass fraction] 34.0 % 20-50 [facility] Laboratory - Chemistry and C hemistry - challengeOrdered By: Angel Georger on 08-17-2022 Magnesium [Mass/Vol] 2.0 mg/dL 1.6-2.6 [facility] Leukocytes [#/volume] correc celena for nucleated erythrocytes in Blood by Automated counOrdered By: Angel Kym on 08-17-2022 WBC corrected for nucl RBC Auto (Bld) [#/Vol] 10.0 10*3/uL 4.1-10.5 [facility] MCH Auto (RBC) [Entitic mass ]Ordered By: Angel Kym on 08-17-2022 MCH (RBC) [Entitic mass] 29.8 pg 27.5-35.2 [facility] MCHC Auto (RBC) [Mass/Vol]Or dered By: Angel Kym on 08-17-2022 MCHC (RBC) [Mass/Vol] 35.0 g/dL 32.5-35.6 [facility] MCV Auto (RBC) [Entitic vol] Ordered By: Angel Kym on 08-17-2022 MCV (RBC) [Entitic vol] 85.3 fL 83.5-101 [facility] No Panel InformationOrdered By: Angel Mejía on 08-17-2022 25-Hydroxy Vitamin D Total 13.1 ng/mL 30-100 [facility] Comment on above: VITAMIN D STATUS 25( [place])VITAMIN D RANGE (ng/mL) Deficient <20 Insufficient 20 to <30Sufficient 30 to 100Reference: Vanna MF,Chemo NC, Sergey SIMENTAL, et al. Evaluation,treatment, and prevention of vitamin D deficiency; an Endocrine Society clinical practice guideline. JCEM. 2010; 96(7):1911-30. Estimated GFR () 23 mL/Min [facility] Comment on above: GFR estimated refere nce range: According to KDOQI guidelines, <60 ml/min/1.73m2 is sufficient to diagnose a patient with chronic kidney disease. Pharmacy Creatinine Clearance (Chem N/A [facility] Phosphate [Mass/volume] in S gretta or PlasmaOrdered By: Angel Mejía on 08-17-2022 Phosphate [Mass/Vol] 5.0 mg/dL 2.5-4.6 [facility] Platelet mean volume Auto (B ld) [Entitic vol]Ordered By: Angel Mejía on 08-17-2022 Platelet mean volume (Bld) [Entitic vol] 8.3 fL 6.6-10.1 [facility] Platelets Auto (Bld) [#/Vol] Ordered By: Angel Mejía on 08-17-2022 Platelets (Bld) [#/Vol] 205 10*3/uL 150-450 [facility] RBC Auto (Bld) [#/Vol]Ordere d By: Angel Mejía on 08-17-2022 RBC (Bld) [#/Vol] 3.35 10*6/uL 3.90-5.60 [facility] Serum or plasma anion gap de terminationOrdered By: Angel Mejía on 08-17-2022 Anion gap [Moles/Vol] 9.9 mmol/L 6.0-15.0 [facility] Serum or plasma calcium farida urement (mass/volume)Ordered By: Angel Mejía on 08-17-2022 Calcium [Mass/Vol] 8.4 mg/dL 8.2-10.2 [facility] Serum or plasma chloride trina surement (moles/volume)Ordered By: Angel Mejía on 08-17-2022 Chloride [Moles/Vol] 107 mmol/L 95-114 [facility] Serum or plasma glucose farida urement (mass/volume)Ordered By: Angel Mejía on 08-17-2022 Glucose [Mass/Vol] 202 mg/dL 70-100 [facility] Comment on above: ADA recommended refe rence rangeRandom Glucose Reference Range is dependent on time and content of last meal. Glucose of more than 200 mg/dL in a nonstressed, ambulatory subject supports the diagnosis of Diabetes Mellitus. Serum or plasma intact parat hyroid hormone measurement (mass/volume)Ordered By: Angel Mejía on 08-17-2022 Parathyrin.intact [Mass/Vol] 253.7 pg/mL [facility] Serum or plasma potassium me asurement (moles/volume)Ordered By: Angel Mejía on 08-17-2022 Potassium [Moles/Vol] 5.0 mmol/L 3.5-5.1 [facility] Serum or plasma sodium measu rement (moles/volume)Ordered By: Angel Mejía on 08-17-2022 Sodium [Moles/Vol] 136 mmol/L 136-146 [facility] Serum or plasma total carbon dioxide measurement (moles/volume)Ordered By: Angel Mejía on 08-17-2022 CO2 [Moles/Vol] 24.1 mmol/L 22.0-30.0 [facility] Serum or plasma urea nitroge n measurement (mass/volume)Ordered By: Angel Mejía on 08-17-2022 Urea nitrogen [Mass/Vol] 47 mg/dL 05-11 [facility] Serum or plasma uric acid me asurement (mass/volume)Ordered By: Angel Mejía on 08-17-2022 Urate [Mass/Vol] 6.6 mg/dL 2.6-7.2 [facility] Automated erythrocytes count in urine sediment (number/area)Ordered By: Tenzin Ortiz on 08-13-2022 RBC Auto (Urine sed) [#/Area] 10-19 [HPF] 0-4 [facility] Automated leukocytes count i n urine sediment (number/area)Ordered By: Tenzin Ortiz on 08-13-2022 WBC Auto (Urine sed) [#/Area] 1-2 [HPF] 0-4 [facility] Bilirubin Test strip Ql (U)O rdered By: Tenzin Ortiz on 08-13-2022 Bilirubin Ql (U) Negative Negative [facility] Color Auto (U)Ordered By: Jose Luis Ortiz on 08-13-2022 Color (U) Yellow Yellow [facility] Glucose Glucometer (BldC) [M ass/Vol]Ordered By: Law Cano on 08-13-2022 Glucose [Mass/Vol] 276 mg/dL [facility] Comment on above: Random Glucose Refer ence Range is dependent on time and content of last meal. Glucose of more than 200 mg/dL in a nonstressed, ambulatory subject supports the diagnosis of Diabetes Mellitus. Ketones Auto test strip (U) [Mass/Vol]Ordered By: Tenzin Ortiz on 08-13-2022 Ketones (U) [Mass/Vol] Negative Negative [facility] Laboratory - Chemistry and C hemistry - challengeOrdered By: Isidoro Mesa on 08-13-2022 Magnesium [Mass/Vol] 1.9 mg/dL 1.6-2.6 [facility] Laboratory - UrinalysisOrder ed By: Tenzin Ortiz on 08-13-2022 Hyaline casts LM Ql (Urine sed) 0-8 [LPF] 0-8 [facility] Nitrite Test strip Ql (U)Ord ered By: Tenzin Ortiz on 08-13-2022 Nitrite Ql (U) Negative Negative [facility] Protein Auto test strip (U) [Mass/Vol]Ordered By: Tenzin Ortiz on 08-13-2022 Protein (U) [Mass/Vol] 300 mg/dL Negative [facility] Specific gravity Auto test s trip (U) [Rel density]Ordered By: Tenzin Ortiz on 08-13-2022 Specific gravity (U) [Rel density] 1.011 1.001-1.03 0 [facility] Squamous epithelial cells de tection in urine sediment by light microscopyOrdered By: Tenzin Ortiz on 08-13-2022 Epithelial cells.squamous LM Ql (Urine sed) 0-1 [HPF] 0-2 [facility] Troponin I.cardiac [Mass/vol ume] in Serum or Plasma by High sensitivity methodOrdered By: Isidoro Mesa on 08-13-2022 Troponin I.cardiac High sensitivity method [Mass/Vol] 31 pg/mL 0-20 [facility] Urine bacteria detection by automated methodOrdered By: Tenzin Ortiz on 08-13-2022 Bacteria Auto Ql (U) None seen None Seen [facility] Urine clarity by refractomet ry automatedOrdered By: Tenzin Ortiz on 08-13-2022 Clarity Refractometry automated (U) Clear Clear [facility] Urine glucose measurement by automated test strip (mass/volume)Ordered By: Tenzin Ortiz on 08-13-2022 Glucose Auto test strip (U) [Mass/Vol] 250 mg/dL Normal [facility] Urine hemoglobin detection b y automated test stripOrdered By: Tenzin Ortiz on 08-13-2022 Hemoglobin Auto test strip Ql (U) 1+ Negative [facility] Urine leukocyte esterase det ection by automated test stripOrdered By: Tenzin Ortiz on 08-13-2022 Leukocyte esterase Auto test strip Ql (U) Negative Negative [facility] Urobilinogen Auto test strip (U) [Mass/Vol]Ordered By: Tenzin Ortiz on 08-13-2022 Urobilinogen (U) [Mass/Vol] Normal mg/dL Normal [facility] pH Auto test strip (U)Ordere d By: Tenzin Ortiz on 08-13-2022 pH (U) 5.5 [pH] 5.0-9.0 [facility] Activated partial thrombopla stin time (aPTT) in platelet poor plasma by coagulation aOrdered By: Tenzin Ortiz on 08-12-2022 aPTT Coag (PPP) [Time] 36.3 s 25.1-36.5 [facility] Albumin [Mass/volume] in Ser um or PlasmaOrdered By: Tenzin Ortiz on 08-12-2022 Albumin [Mass/Vol] 2.4 g/dL 3.2-5.5 [facility] Basophils Auto (Bld) [#/Vol] Ordered By: Tenzin Ortiz on 08-12-2022 Basophils (Bld) [#/Vol] 0.1 10*3/uL 0.0-0.2 [facility] Basophils/100 WBC Auto (Bld) Ordered By: Tenzin Ortiz on 08-12-2022 Basophils/100 WBC (Bld) 1.5 % . [facility] Creatine kinase [Enzymatic a ctivity/volume] in Serum or PlasmaOrdered By: Tenzin Ortiz on 08-12-2022 CK [Catalytic activity/Vol] 236 U/L 22-269 [facility] Creatinine and Glomerular fi ltration rate.predicted panel (S/P/Bld)Ordered By: Tenzin Ortiz on 08-12-2022 Creatinine [Mass/Vol] 3.85 mg/dL 0.64-1.27 [facility] Eosinophils Auto (Bld) [#/Vo l]Ordered By: Tenzin Ortiz on 08-12-2022 Eosinophils (Bld) [#/Vol] 0.1 10*3/uL 0.0-0.45 [facility] Eosinophils/100 WBC Auto (Bl d)Ordered By: Tenzin Ortiz on 08-12-2022 Eosinophils/100 WBC (Bld) 2.7 % . [facility] Erythrocyte distribution wid th Auto (RBC) [Ratio]Ordered By: Tenzin Ortiz on 08-12-2022 Erythrocyte distribution width (RBC) [Ratio] 13.6 % 12.0-14.8 [facility] Estimated glomerular filtrat ion rate (GFR) non- AmericanOrdered By: Tenzin Ortiz on 08-12-2022 GFR/1.73 sq M.predicted among non-blacks MDRD (S/P/Bld) [Vol rate/Area] 18 mL/Min [facility] Globulin Calc (S) [Mass/Vol] Ordered By: Tenzin Ortiz on 08-12-2022 Globulin (S) [Mass/Vol] 2.8 g/dL [facility] Hematocrit Auto (Bld) [Volum e fraction]Ordered By: Tenzin Ortiz on 08-12-2022 Hematocrit (Bld) [Volume fraction] 23.4 % 38.8-50.0 [facility] Hemoglobin [Mass/volume] in BloodOrdered By: Tenzin Ortiz on 08-12-2022 Hemoglobin (Bld) [Mass/Vol] 8.3 g/dL 13.0-17.0 [facility] Laboratory - CoagulationOrde red By: Tenzin Ortiz on 08-12-2022 PT Coag (PPP) [Time] 12.0 s 9.0-12.9 [facility] Leukocytes [#/volume] correc celena for nucleated erythrocytes in Blood by Automated counOrdered By: Tenzin Ortiz on 08-12-2022 WBC corrected for nucl RBC Auto (Bld) [#/Vol] 5.4 10*3/uL 4.1-10.5 [facility] Lymphocytes Auto (Bld) [#/Vo l]Ordered By: Tenzin rOtiz on 08-12-2022 Lymphocytes (Bld) [#/Vol] 1.6 10*3/uL 1.00-4.8 [facility] Lymphocytes/100 WBC Auto (Bl d)Ordered By: Tenzin Ortiz on 08-12-2022 Lymphocytes/100 WBC (Bld) 29.2 % . [facility] MCH Auto (RBC) [Entitic mass ]Ordered By: Tenzin Ortiz on 08-12-2022 MCH (RBC) [Entitic mass] 30.1 pg 27.5-35.2 [facility] MCHC Auto (RBC) [Mass/Vol]Or dered By: Tenzin Ortiz on 08-12-2022 MCHC (RBC) [Mass/Vol] 35.4 g/dL 32.5-35.6 [facility] MCV Auto (RBC) [Entitic vol] Ordered By: Tenzin Ortiz on 08-12-2022 MCV (RBC) [Entitic vol] 85.1 fL 83.5-101 [facility] Monocyte distribution width [Entitic volume] in Blood by AutomatedOrdered By: Tenzin Ortiz on 08-12-2022 Monocyte distribution width Auto (Bld) [Entitic vol] 17.67 % 0.00-20.00 [facility] Monocytes Auto (Bld) [#/Vol] Ordered By: Tenzin Ortiz on 08-12-2022 Monocytes (Bld) [#/Vol] 0.5 10*3/uL 0.0-0.8 [facility] Monocytes/100 WBC Auto (Bld) Ordered By: Tenzin Ortiz on 08-12-2022 Monocytes/100 WBC (Bld) 8.9 % . [facility] Neutrophils Auto (Bld) [#/Vo l]Ordered By: Tenzin Ortiz on 08-12-2022 Neutrophils (Bld) [#/Vol] 3.1 10*3/uL 1.8-7.7 [facility] Neutrophils/100 WBC Auto (Bl d)Ordered By: Tenzin Ortiz on 08-12-2022 Neutrophils/100 WBC (Bld) 57.7 % . [facility] No Panel InformationOrdered By: Tenzin Ortiz on 08-12-2022 Estimated GFR () 21 mL/Min [facility] Comment on above: GFR estimated refere nce range: According to KDOQI guidelines, <60 ml/min/1.73m2 is sufficient to diagnose a patient with chronic kidney disease. Pharmacy Creatinine Clearance (Chem 28.24 [facility] Nucleated erythrocytes [Pres ence] in Blood by Automated countOrdered By: Tenzin Ortiz on 08-12-2022 Nucleated RBC Auto Ql (Bld) 0.1 /100{WBC} 0-0.5 [facility] Platelet mean volume Auto (B ld) [Entitic vol]Ordered By: Tenzin Ortiz on 08-12-2022 Platelet mean volume (Bld) [Entitic vol] 7.9 fL 6.6-10.1 [facility] Platelet poor plasma interna tional normalized ratio (INR) by coagulation assay (relatOrdered By: Tenzin Ortiz on 08-12-2022 INR Coag (PPP) [Relative time] 1.1 {INR} [facility] Comment on above: INR Therapeutic Rang e [...] 08-12-2022 Platelets (Bld) [#/Vol] 148 10*3/uL 150-450 [facility] Protein [Mass/volume] in Ser um or PlasmaOrdered By: Tenzin Ortiz on 08-12-2022 Protein [Mass/Vol] 5.2 g/dL 6.1-7.9 [facility] RBC Auto (Bld) [#/Vol]Ordere d By: Tenzin Ortiz on 08-12-2022 RBC (Bld) [#/Vol] 2.74 10*6/uL 3.90-5.60 [facility] Serum or plasma alanine matthews otransferase measurement without P-5'-P (enzymatic activiOrdered By: Tenzin Ortiz on 08-12-2022 ALT No additional P-5'-P [Catalytic activity/Vol] 11 U/L 10-60 [facility] Serum or plasma albumin/glob ulin mass ratioOrdered By: Tenzin Ortiz on 08-12-2022 Albumin/Globulin [Mass ratio] 0.9 {ratio} [facility] Serum or plasma alkaline harriett sphatase measurement (enzymatic activity/volume)Ordered By: Tenzin Ortiz on 08-12-2022 ALP [Catalytic activity/Vol] 68 U/L 32-92 [facility] Serum or plasma anion gap de terminationOrdered By: Tenzin Ortiz on 08-12-2022 Anion gap [Moles/Vol] 12.3 mmol/L 6.0-15.0 [facility] Serum or plasma aspartate am inotransferase measurement (enzymatic activity/volume)Ordered By: Tenzin Ortiz on 08-12-2022 AST [Catalytic activity/Vol] 12 U/L 10-42 [facility] Serum or plasma calcium farida urement (mass/volume)Ordered By: Tenzin Ortiz on 08-12-2022 Calcium [Mass/Vol] 7.7 mg/dL 8.2-10.2 [facility] Serum or plasma chloride trina surement (moles/volume)Ordered By: Tenzin Ortiz on 08-12-2022 Chloride [Moles/Vol] 107 mmol/L 95-114 [facility] Serum or plasma creatine kin ase MB (CKMB)/total creatine kinase (CK) ratio by calculaOrdered By: Tenzin Ortiz on 08-12-2022 CK.MB Calc [Catalytic fraction] 2.7 % 0.00-2.50 [facility] Serum or plasma creatine kin ase MB measurement (mass/volume)Ordered By: Tenzin Ortiz on 08-12-2022 CK.MB [Mass/Vol] 6.6 ng/mL 0.6-6.3 [facility] Serum or plasma glucose farida urement (mass/volume)Ordered By: Tenzin Ortiz on 08-12-2022 Glucose [Mass/Vol] 198 mg/dL 70-100 [facility] Comment on above: ADA recommended refe rence rangeRandom Glucose Reference Range is dependent on time and content of last meal. Glucose of more than 200 mg/dL in a nonstressed, ambulatory subject supports the diagnosis of Diabetes Mellitus. Serum or plasma potassium me asurement (moles/volume)Ordered By: Tenzin Ortiz on 08-12-2022 Potassium [Moles/Vol] 4.2 mmol/L 3.5-5.1 [facility] Serum or plasma sodium measu rement (moles/volume)Ordered By: Tenzin Ortiz on 08-12-2022 Sodium [Moles/Vol] 136 mmol/L 136-146 [facility] Serum or plasma total biliru bin measurement (mass/volume)Ordered By: Tenzin Ortiz on 08-12-2022 Bilirubin [Mass/Vol] 0.4 mg/dL 0.3-1.2 [facility] Serum or plasma total carbon dioxide measurement (moles/volume)Ordered By: Tenzin Ortiz on 08-12-2022 CO2 [Moles/Vol] 20.9 mmol/L 22.0-30.0 [facility] Serum or plasma urea nitroge n measurement (mass/volume)Ordered By: Tenzin Ortiz on 08-12-2022 Urea nitrogen [Mass/Vol] 45 mg/dL 9- [facility] Troponin I.cardiac [Mass/vol ume] in Serum or Plasma by High sensitivity methodOrdered By: Tenzin Ortiz on 08-12-2022 Troponin I.cardiac High sensitivity method [Mass/Vol] 24 pg/mL 0-20 [facility] WBC Auto (Bld) [#/Vol]Ordere d By: Tenzin Ortiz on 08-12-2022 WBC (Bld) [#/Vol] 5.4 10*3/uL 4.1-10.5 [facility] NHITona 08-02-2022 CNPN Telephone (TXCTGL) -- YOEL WERNER ([id number]) 1985 M Date Time Provider Department 08/02/22 BELLANINFASARA HECK TXCTGL During your visit today, we recorded the following information about you: Sara Lazaro 08/02/2022 10:42 AM Signed Returned call to patient regarding kidney transplant, he is currently smoking cigarettes about 1/2 pack per day. Advised patient once he is nicotine free for 30-days to contact our office. Closing referral at this time and patient verbalized understanding. Sara Lazaro Allergies As of Date: 08/02/2022 (No Known [...] Status:Closed by SARA WILLIS on 08/02/[address] [facility] Albumin [Mass/volume] in Ser um or PlasmaOrdered By: Cipriano Stiles on 07-19-2022 Albumin [Mass/Vol] 2.6 g/dL 3.2-5.5 [facility] C reactive protein [Mass/vol ume] in Serum or Plasma by High sensitivity methodOrdered By: Denilson Gomez on 07-19-2022 CRP High sensitivity method [Mass/Vol] 0.7 mg/L [facility] Comment on above: Cardiovascular Risk Classification (AHA/CDC)hsCRP [...] this marker for estimation of CVD risk. Cholesterol [Mass/volume] in Serum or PlasmaOrdered By: Denilson Gomez on 07-19-2022 Cholesterol [Mass/Vol] 164 mg/dL 140-200 [facility] Comment on above: Chol less than 200 m g/dl low riskChol 201-239 mg/dl borderline riskChol 240 mg/dl and greater high risk Cholesterol in LDL Calc [Mas s/Vol]Ordered By: Denilson Gomez on 07-19-2022 Cholesterol in LDL [Mass/Vol] 111 mg/dL 0-100 [facility] Comment on above: LDL ATP III CLASSIFI CATIONLDL less than 100 mg/dL OptimalLDL 100-129 mg/dL Near or above optimalLDL 130-159 mg/dL Borderline highLDL 160-189 mg/dL HighLDL greater than 189 mg/dL Very high Cholesterol in VLDL Calc [Ma ss/Vol]Ordered By: Denilson Gomez on 07-19-2022 Cholesterol in VLDL [Mass/Vol] 16 mg/dL [facility] Creatinine [Mass/volume] in UrineOrdered By: Cipriano tSiles on 07-19-2022 Creatinine (U) [Mass/Vol] 76.5 mg/dL [facility] Comment on above: No reference range e stablished Creatinine and Glomerular fi ltration rate.predicted panel (S/P/Bld)Ordered By: Cipriano Stiles on 07-19-2022 Creatinine [Mass/Vol] 3.21 mg/dL 0.64-1.27 [facility] Estimated glomerular filtrat ion rate (GFR) non- AmericanOrdered By: Cipriano Stiles on 07-19-2022 GFR/1.73 sq M.predicted among non-blacks MDRD (S/P/Bld) [Vol rate/Area] 22 mL/Min [facility] Laboratory - Chemistry and C hemistry - challengeon 07-19-2022 Cholesterol [Mass/Vol] 164\S\164 Normal 140-200 [facility] [employer] DO Work Phone: Comment on above: Chol less than 200 m g/dl low risk Chol 201-239 mg/dl borderline risk Chol 240 mg/dl and greater high risk Cholesterol in LDL [Mass/Vol] 111\S\111 above high threshold 0-100 [facility] [email or web address] DO Work Phone: Comment on above: LDL ATP III CLASSIFI CATION LDL less than 100 mg/dL Optimal LDL 100-129 mg/dL Near or above optimal LDL 130-159 mg/dL Borderline high LDL 160-189 mg/dL High LDL greater than 189 mg/dL Very high No Panel Informationon 07-19 [facility] [employer] DO Work Phone: [phone]\S\[phone] Normal [facility] [employer] DO Work Phone: Comment on above: [...] this marker for estimation of CVD risk.PERFORMED BY:[facility] [place], [place] [id number] MEDICAL DIRECTORLEVY GILES M.D. 4.6\S\4.6 Normal <5.0 [facility] [address]ianne [address] DO Work Phone: Comment on above: PERFORMED BY:[facility] BARAHONAAngiJULIETTESAINT [place], [place] [id number] MEDICAL DIRECTORLEVY GILES M.D. 16\S\16 Normal [facility] [address]ne 250 DO Work Phone: [phone]\S\[phone] Normal 35-149 [facility] marianne 250 DO Work Phone: Comment on above: TRIG ATP III CLASSIF ICATION TRIG less than 150 mg/dL Normal TRIG 150-199 mg/dL Borderline high TRIG 200-500 mg/dL High TRIG greater than 500 mg/dL Very high Standard traceable to the Center for Disease Conrtrol and Prevention (CDC) test method. 36\S\36 Normal 29-71 [facility] [address]ianne 250 DO Work Phone: Comment on above: HDL CHOL ATP-III CLA SSIFICATION Cardiovascular Risk HDL > or equal to 60 mg/dL LOW HDL < 40 mg/dL HIGH No Panel InformationOrdered By: Cipriano Stiles on 07-19-2022 25-Hydroxy Vitamin D Total 8.4 ng/mL 30-100 [facility] Comment on above: VITAMIN D STATUS 25( [place])VITAMIN D RANGE (ng/mL) Deficient <20 Insufficient 20 to <30Sufficient 30 to 100Reference: Vanna MF,Chemo NC, Sergye SIMENTAL, et al. Evaluation,treatment, and prevention of vitamin D deficiency; an Endocrine Society clinical practice guideline. JCEM. 2010; 96(7):1911-30. C-Peptide 1.8 ng/mL 1.1-4.4 [facility] Comment on above: C-Peptide reference interval is for fasting patients.Performed at: [facility] [id number] Director: Pablito Alexander PhD, Phone: [phone] Estimated GFR () 26 mL/Min [facility] Comment on above: GFR estimated refere nce range: According to KDOQI guidelines, <60 ml/min/1.73m2 is sufficient to diagnose a patient with chronic kidney disease. Pharmacy Creatinine Clearance (Chem N/A [facility] Phosphate [Mass/volume] in S gretta or PlasmaOrdered By: Cipriano Stiles on 07-19-2022 Phosphate [Mass/Vol] 5.7 mg/dL 2.5-4.6 [facility] Serum or plasma anion gap de terminationOrdered By: Cipriano Stiles on 07-19-2022 Anion gap [Moles/Vol] 11.6 mmol/L 6.0-15.0 [facility] Serum or plasma calcium farida urement (mass/volume)Ordered By: Cipriano Stiles on 07-19-2022 Calcium [Mass/Vol] 8.3 mg/dL 8.2-10.2 [facility] Serum or plasma chloride trina surement (moles/volume)Ordered By: Cipriano Stiles on 07-19-2022 Chloride [Moles/Vol] 106 mmol/L 95-114 [facility] Serum or plasma glucose farida urement (mass/volume)Ordered By: Cipriano Stiles on 07-19-2022 Glucose [Mass/Vol] 173 mg/dL 70-100 [facility] Comment on above: ADA recommended refe rence rangeRandom Glucose Reference Range is dependent on time and content of last meal. Glucose of more than 200 mg/dL in a nonstressed, ambulatory subject supports the diagnosis of Diabetes Mellitus. Serum or plasma high density lipoprotein (HDL) cholesterol measurementOrdered By: Denilson Gomez on 07-19-2022 Cholesterol in HDL [Mass/Vol] 36 mg/dL 29-71 [facility] Comment on above: HDL CHOL ATP-III CLA SSIFICATION Cardiovascular RiskHDL > or equal to 60 mg/dL LOWHDL < 40 mg/dL HIGH Serum or plasma potassium me asurement (moles/volume)Ordered By: Cipriano Stiles on 07-19-2022 Potassium [Moles/Vol] 4.2 mmol/L 3.5-5.1 [facility] Serum or plasma sodium measu rement (moles/volume)Ordered By: Cipriano Stiles on 07-19-2022 Sodium [Moles/Vol] 137 mmol/L 136-146 [facility] Serum or plasma total carbon dioxide measurement (moles/volume)Ordered By: Cipriano Stiles on 07-19-2022 CO2 [Moles/Vol] 23.6 mmol/L 22.0-30.0 [facility] Serum or plasma total choles terol/high density lipoprotein (HDL) cholesterol mass ratOrdered By: Denilson Gomez on 07-19-2022 Cholesterol.total/Rosalind sterol in HDL [Mass ratio] 4.6 {ratio} <5.0 [facility] Serum or plasma urea nitroge n measurement (mass/volume)Ordered By: Cipriano Stiles on 07-19-2022 Urea nitrogen [Mass/Vol] 50 mg/dL 9-23 [facility] Triglyceride [Mass/volume] i n Serum or PlasmaOrdered By: Denilson Gomez on 07-19-2022 Triglyceride [Mass/Vol] 84 mg/dL 35-149 [facility] Comment on above: TRIG ATP [...] 20 mg/L (U) [Mass/Vol] 313.0 mg/dL 0.0-1.8 [facility] Urine microalbumin/creatinin e mass ratioOrdered By: Cipriano Stiles on 07-19-2022 Albumin/Creatinine DL <= 20 mg/L (U) [Mass ratio] 4091.0 mg/g 0.0-30.0 [facility] Comment on above: 30-300 mg/g indicate s an increased risk for diabetic nephropathy. Greater than 300 mg/g is consistent with clinical nephropathy. (Am. J. Kidney Disease 1995, 25:107) Albumin [Mass/volume] in Ser um or PlasmaOrdered By: Zeus Bradley on 07-09-2022 Albumin [Mass/Vol] 2.7 g/dL 3.2-5.5 [facility] Automated erythrocytes count in urine sediment (number/area)Ordered By: Zeus Bradley on 07-09-2022 RBC Auto (Urine sed) [#/Area] 3-4 [HPF] 0-4 [facility] Automated leukocytes count i n urine sediment (number/area)Ordered By: Zeus Bradley on 07-09-2022 WBC Auto (Urine sed) [#/Area] 0-1 [HPF] 0-4 [facility] Basophils Auto (Bld) [#/Vol] Ordered By: Zeus Bradley on 07-09-2022 Basophils (Bld) [#/Vol] 0.1 10*3/uL 0.0-0.2 [facility] Basophils/100 WBC Auto (Bld) Ordered By: Zeus Bradley on 07-09-2022 Basophils/100 WBC (Bld) 1.3 % . [facility] Bilirubin Test strip Ql (U)O rdered By: Zeus Bradley on 07-09-2022 Bilirubin Ql (U) Negative Negative [facility] Color Auto (U)Ordered By: Nas Bradley on 07-09-2022 Color (U) Yellow Yellow [facility] Creatinine and Glomerular fi ltration rate.predicted panel (S/P/Bld)Ordered By: Zeus Bradley on 07-09-2022 Creatinine [Mass/Vol] 3.40 mg/dL 0.64-1.27 [facility] Eosinophils Auto (Bld) [#/Vo l]Ordered By: Zeus Bradley on 07-09-2022 Eosinophils (Bld) [#/Vol] 0.2 10*3/uL 0.0-0.45 [facility] Eosinophils/100 WBC Auto (Bl d)Ordered By: Zeus Bradley on 07-09-2022 Eosinophils/100 WBC (Bld) 1.9 % . [facility] Erythrocyte distribution wid th Auto (RBC) [Ratio]Ordered By: Zeus Bradley on 07-09-2022 Erythrocyte distribution width (RBC) [Ratio] 13.7 % 12.0-14.8 [facility] Estimated glomerular filtrat ion rate (GFR) non- AmericanOrdered By: Zeus Bradley on 07-09-2022 GFR/1.73 sq M.predicted among non-blacks MDRD (S/P/Bld) [Vol rate/Area] 20 mL/Min [facility] Globulin Calc (S) [Mass/Vol] Ordered By: Zeus Bradley on 07-09-2022 Globulin (S) [Mass/Vol] 3.8 g/dL [facility] Glucose Glucometer (BldC) [M ass/Vol]Ordered By: Zeus Bradley on 07-09-2022 Glucose [Mass/Vol] 128 mg/dL [facility] Comment on above: Random Glucose Refer ence Range is dependent on time and content of last meal. Glucose of more than 200 mg/dL in a nonstressed, ambulatory subject supports the diagnosis of Diabetes Mellitus. Hematocrit Auto (Bld) [Volum e fraction]Ordered By: Zeus Bradley on 07-09-2022 Hematocrit (Bld) [Volume fraction] 32.4 % 38.8-50.0 [facility] Hemoglobin [Mass/volume] in BloodOrdered By: Zeus Bradley on 07-09-2022 Hemoglobin (Bld) [Mass/Vol] 11.1 g/dL 13.0-17.0 [facility] Ketones Auto test strip (U) [Mass/Vol]Ordered By: Zeus Bradley on 07-09-2022 Ketones (U) [Mass/Vol] Negative Negative [facility] - Chemistry and C hemistry - challengeOrdered By: Zeus Bradley on 07-09-2022 Magnesium [Mass/Vol] 1.9 mg/dL 1.6-2.6 [facility] Laboratory - Hematology and Cell countsOrdered By: Zeus Bradley on 07-09-2022 Nucleated RBC/100 WBC (Bld) [Ratio] 0.0 % 0-0.5 [facility] Laboratory - UrinalysisOrder ed By: Zeus Bradley on 07-09-2022 Hyaline casts LM Ql (Urine sed) 0-8 [LPF] 0-8 [facility] Leukocytes [#/volume] in Blo od by Automated countOrdered By: Zeus Bradley on 07-09-2022 WBC (Bld) [#/Vol] 8.2 10*3/uL 4.5-11.0 [facility] Lymphocytes Auto (Bld) [#/Vo l]Ordered By: Zeus Bradley on 07-09-2022 Lymphocytes (Bld) [#/Vol] 1.3 10*3/uL 1.00-4.8 [facility] Lymphocytes/100 WBC Auto (Bl d)Ordered By: Zeus Bradley on 07-09-2022 Lymphocytes/100 WBC (Bld) 16.2 % . [facility] MCH Auto (RBC) [Entitic mass ]Ordered By: Zeus Bradley on 07-09-2022 MCH (RBC) [Entitic mass] 29.3 pg 27.5-35.2 [facility] MCHC Auto (RBC) [Mass/Vol]Or dered By: Zeus Bradley on 07-09-2022 MCHC (RBC) [Mass/Vol] 34.2 g/dL 32.5-35.6 [facility] MCV Auto (RBC) [Entitic vol] Ordered By: Zeus Bradley on 07-09-2022 MCV (RBC) [Entitic vol] 85.7 fL 83.5-101 [facility] Monocytes Auto (Bld) [#/Vol] Ordered By: Zeus Bradley on 07-09-2022 Monocytes (Bld) [#/Vol] 0.4 10*3/uL 0.0-0.8 [facility] Monocytes/100 WBC Auto (Bld) Ordered By: Zeus Bradley on 07-09-2022 Monocytes/100 WBC (Bld) 4.4 % . [facility] Neutrophils Auto (Bld) [#/Vo l]Ordered By: Zeus Bradley on 07-09-2022 Neutrophils (Bld) [#/Vol] 6.2 10*3/uL 1.8-7.7 [facility] Neutrophils/100 WBC Auto (Bl d)Ordered By: Zeus Bradley on 07-09-2022 Neutrophils/100 WBC (Bld) 76.2 % . [facility] Nitrite Test strip Ql (U)Ord ered By: Zeus Bradley on 07-09-2022 Nitrite Ql (U) Negative Negative [facility] No Panel InformationOrdered By: Zeus Bradley on 07-09-2022 Bedside Glucose Comment Glu2: cleaned meter [facility] Estimated GFR () 25 mL/Min [facility] Comment on above: GFR estimated refere nce range: According to KDOQI guidelines, <60 ml/min/1.73m2 is sufficient to diagnose a patient with chronic kidney disease. Pharmacy Creatinine Clearance (Chem 31.22 [facility] Platelet mean volume Auto (B ld) [Entitic vol]Ordered By: Zeus Bradley on 07-09-2022 Platelet mean volume (Bld) [Entitic vol] 8.0 fL 6.6-10.1 [facility] Platelets Auto (Bld) [#/Vol] Ordered By: Zeus Bradley on 07-09-2022 Platelets (Bld) [#/Vol] 228 10*3/uL 150-450 [facility] Protein Auto test strip (U) [Mass/Vol]Ordered By: eZus Bradley on 07-09-2022 Protein (U) [Mass/Vol] mg/dL Negative [facility] Protein [Mass/volume] in Ser um or PlasmaOrdered By: Zeus Bradley on 07-09-2022 Protein [Mass/Vol] 6.5 g/dL 6.1-7.9 [facility] RBC Auto (Bld) [#/Vol]Ordere d By: Zeus Bradley on 07-09-2022 RBC (Bld) [#/Vol] 3.78 10*6/uL 3.90-5.60 [facility] Serum or plasma alanine matthews otransferase measurement without P-5'-P (enzymatic activiOrdered By: Zeus Bradley on 07-09-2022 ALT No additional P-5'-P [Catalytic activity/Vol] 17 U/L 10-60 [facility] Serum or plasma albumin/glob ulin mass ratioOrdered By: Zeus Bradley on 07-09-2022 Albumin/Globulin [Mass ratio] 0.7 {ratio} [facility] Serum or plasma alkaline harriett sphatase measurement (enzymatic activity/volume)Ordered By: Zeus Bradley on 07-09-2022 ALP [Catalytic activity/Vol] 79 U/L 32-92 [facility] Serum or plasma anion gap de terminationOrdered By: Zeus Bradley on 07-09-2022 Anion gap [Moles/Vol] 7.1 mmol/L 6.0-15.0 [facility] Serum or plasma aspartate am inotransferase measurement (enzymatic activity/volume)Ordered By: Zeus Bradley on 07-09-2022 AST [Catalytic activity/Vol] 18 U/L 10-42 [facility] Serum or plasma calcium farida urement (mass/volume)Ordered By: Zeus Bradley on 07-09-2022 Calcium [Mass/Vol] 8.6 mg/dL 8.2-10.2 [facility] Serum or plasma chloride trina surement (moles/volume)Ordered By: Zeus Bradley on 07-09-2022 Chloride [Moles/Vol] 105 mmol/L 95-114 [facility] Serum or plasma glucose farida urement (mass/volume)Ordered By: Zeus Bradley on 07-09-2022 Glucose [Mass/Vol] 80 mg/dL 70-100 [facility] Comment on above: ADA recommended refe rence rangeRandom Glucose Reference Range is dependent on time and content of last meal. Glucose of more than 200 mg/dL in a nonstressed, ambulatory subject supports the diagnosis of Diabetes Mellitus. Serum or plasma potassium me asurement (moles/volume)Ordered By: Zeus Bradley on 07-09-2022 Potassium [Moles/Vol] 4.0 mmol/L 3.5-5.1 [facility] Serum or plasma sodium measu rement (moles/volume)Ordered By: Zeus Bradley on 07-09-2022 Sodium [Moles/Vol] 133 mmol/L 136-146 [facility] Serum or plasma total biliru bin measurement (mass/volume)Ordered By: Zeus Bradley on 07-09-2022 Bilirubin [Mass/Vol] 0.5 mg/dL 0.3-1.2 [facility] Serum or plasma total carbon dioxide measurement (moles/volume)Ordered By: Zeus Bradley on 07-09-2022 CO2 [Moles/Vol] 24.9 mmol/L 22.0-30.0 [facility] Serum or plasma urea nitroge n measurement (mass/volume)Ordered By: Zeus Bradley on 07-09-2022 Urea nitrogen [Mass/Vol] 36 mg/dL 9- [facility] Specific gravity Auto test s trip (U) [Rel density]Ordered By: Zeus Bradley on 07-09-2022 Specific gravity (U) [Rel density] 1.009 1.001-1.03 0 [facility] Squamous epithelial cells de tection in urine sediment by light microscopyOrdered By: Zeus Bradley on 07-09-2022 Epithelial cells.squamous LM Ql (Urine sed) 0-1 [HPF] 0-2 [facility] Urine bacteria detection by automated methodOrdered By: Zeus Bradley on 07-09-2022 Bacteria Auto Ql (U) None seen None Seen [facility] Urine clarity by refractomet ry automatedOrdered By: Zeus Bradley on 07-09-2022 Clarity Refractometry automated (U) Clear Clear [facility] Urine glucose measurement by automated test strip (mass/volume)Ordered By: Zeus Bradley on 07-09-2022 Glucose Auto test strip (U) [Mass/Vol] 250 mg/dL Normal [facility] Urine hemoglobin detection b y automated test stripOrdered By: Zeus Bradley on 07-09-2022 Hemoglobin Auto test strip Ql (U) 1+ Negative [facility] Urine leukocyte esterase det ection by automated test stripOrdered By: Zeus Bradley on 07-09-2022 Leukocyte esterase Auto test strip Ql (U) Negative Negative [facility] Urobilinogen Auto test strip (U) [Mass/Vol]Ordered By: Zeus Bradley on 07-09-2022 Urobilinogen (U) [Mass/Vol] Normal mg/dL Normal [facility] pH Auto test strip (U)Ordere d By: Zeus Bradley on 07-09-2022 pH (U) 5.5 [pH] 5.0-9.0 [facility] Office Visit (Cardiology)on 07-05-2022 Follow-up visit Diagnoses/Problems [...] 21.9 in adult (V85.1) (Z68.21) History of VT (myocardial infarction) (412) (I25.2) Chronic kidney disease [...] we can help. You may also call 2-022-LZPPNOW for free resources and assistance.; Status:Complete - Retrospective Authorization; Done: [id number] Tobacco Use Screening; Status:Complete; Done: [id number] Patient Instructions Please bring all medicines, vitamins, [...] is followed by nephrology. 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 His left ventricular function at that time was 40 to 45%. He has underlying type 1 diabetes, progressive/chronic kidney disease as noted, ongoing tobacco use, class II angina. Is [place] [employer] is class IIc and remains [...] Recorded: 05Jul2022 11:35AM Heart Rate72, R Radial [id number], LUE, Sitting [id number], LUE, Sitting Height6 ft 1 in [id number] lb BMI Bddvsstxdk55.11 kg/m2 BSA Calculated1.96 Tobacco Useb) No Falls Screening (Age 18+)c) Not medically indicated Physical Exam Constitutional: alert and in no acute distress. Neck: neck is supple, symmetric, trachea midline, no masses and no thyromegaly . Pulmonary: no increased work (more content not included)... Normal [employer] Tobacco Screening.on 022 Fall risk assessment c) Not medically indicated [facility] [employer] DO Work Phone: Tobacco use status [facility] b) No M [facility] [employer] DO Work Phone: Automated erythrocytes count in urine sediment (number/area)Ordered By: Angel Mejía on 06-29-2022 RBC Auto (Urine sed) [#/Area] 5-9 [HPF] 0-4 [facility] Automated leukocytes count i n urine sediment (number/area)Ordered By: Angel eMjía on 06-29-2022 WBC Auto (Urine sed) [#/Area] 1-2 [HPF] 0-4 [facility] Bilirubin Test strip Ql (U)O rdered By: Angel Mejía on 06-29-2022 Bilirubin Ql (U) Negative Negative [facility] Body fluid albumin measureme nt (mass/volume)Ordered By: Angel Mejía on 06-29-2022 Albumin (Body fld) [Mass/Vol] 2.8 g/dL 3.2-5.[address] [facility] [address] biopsyOrdered By: Varsha ricardo on 06-29-2022 Transferrin [Mass/Vol] 166 mg/dL 180-380 [facility] Color Auto (U)Ordered By: Ab yusra Mejía on 06-29-2022 Color (U) Yellow Yellow [facility] Creatinine [Mass/volume] in UrineOrdered By: Angel Mejía on 06-29-2022 Creatinine (U) [Mass/Vol] 39.6 mg/dL [facility] Comment on above: No reference range e stablished Creatinine and Glomerular fi ltration rate.predicted panel (S/P/Bld)Ordered By: Angel Mejía on 06-29-2022 Creatinine [Mass/Vol] 3.30 mg/dL 0.64-1.27 [facility] Erythrocyte distribution wid th Auto (RBC) [Ratio]Ordered By: Angel Mejía on 06-29-2022 Erythrocyte distribution width (RBC) [Ratio] 13.6 % 12.0-14.8 [facility] Estimated glomerular filtrat ion rate (GFR) non- AmericanOrdered By: Angel Mejía on 06-29-2022 GFR/1.73 sq M.predicted among non-blacks MDRD (S/P/Bld) [Vol rate/Area] 21 mL/Min [facility] Ferritin [Mass/volume] in Se rum or PlasmaOrdered By: Angel Mejía on 06-29-2022 Ferritin [Mass/Vol] 123.9 ng/mL 23.9-336.2 [facility] Hematocrit Auto (Bld) [Volum e fraction]Ordered By: Angel Mejía on 06-29-2022 Hematocrit (Bld) [Volume fraction] 33.2 % 38.8-50.0 [facility] Hemoglobin [Mass/volume] in BloodOrdered By: Angel Mejía on 06-29-2022 Hemoglobin (Bld) [Mass/Vol] 11.4 g/dL 13.0-17.0 [facility] Iron [Mass/volume] in Serum or PlasmaOrdered By: Angel Kym on 06-29-2022 Iron [Mass/Vol] 63 ug/dL 40-160 [facility] Iron binding capacity [Mass/ volume] in Serum or PlasmaOrdered By: Angel Mejía on 06-29-2022 Iron binding capacity [Mass/Vol] 232 ug/dL 255-450 [facility] Iron saturation [Mass Fracti on] in Serum or PlasmaOrdered By: Angel Mejía on 06-29-2022 Iron saturation [Mass fraction] 27.0 % 20-50 [facility] Ketones Auto test strip (U) [Mass/Vol]Ordered By: Angel Mejía on 06-29-2022 Ketones (U) [Mass/Vol] Negative Negative [facility] - Chemistry and C hemistry - challengeOrdered By: Angel Mejía on 06-29-2022 Magnesium [Mass/Vol] 1.9 mg/dL 1.6-2.6 [facility] Laboratory - UrinalysisOrder ed By: Angel Mejía on 06-29-2022 Hyaline casts LM Ql (Urine sed) 0-8 [LPF] 0-8 [facility] MCH Auto (RBC) [Entitic mass ]Ordered By: Angel Mejía on 06-29-2022 MCH (RBC) [Entitic mass] 29.2 pg 27.5-35.2 [facility] MCHC Auto (RBC) [Mass/Vol]Or dered By: Angel Mejía on 06-29-2022 MCHC (RBC) [Mass/Vol] 34.3 g/dL 32.5-35.6 [facility] MCV Auto (RBC) [Entitic vol] Ordered By: Angel Mejía on 06-29-2022 MCV (RBC) [Entitic vol] 85.2 fL 83.5-101 [facility] Nitrite Test strip Ql (U)Ord ered By: Angel Mejía on 06-29-2022 Nitrite Ql (U) Negative Negative [facility] No Panel InformationOrdered By: Angel Mejía on 06-29-2022 Estimated GFR () 26 mL/Min [facility] Comment on above: GFR estimated refere nce range: According to KDOQI guidelines, <60 ml/min/1.73m2 is sufficient to diagnose a patient with chronic kidney disease. Pharmacy Creatinine Clearance (Chem N/A [facility] Phosphate [Mass/volume] in S gretta or PlasmaOrdered By: Angel Mejía on 06-29-2022 Phosphate [Mass/Vol] 5.0 mg/dL 2.5-4.6 [facility] Platelet mean volume Auto (B ld) [Entitic vol]Ordered By: Angel Mejía on 06-29-2022 Platelet mean volume (Bld) [Entitic vol] 8.6 fL 6.6-10.1 [facility] Platelets Auto (Bld) [#/Vol] Ordered By: Angel Mejía on 06-29-2022 Platelets (Bld) [#/Vol] 242 10*3/uL 150-450 [facility] Protein Auto test strip (U) [Mass/Vol]Ordered By: Angel Mejía on 06-29-2022 Protein (U) [Mass/Vol] 300 mg/dL Negative [facility] Protein [Mass/volume] in Uri neOrdered By: Angel Mejía on 06-29-2022 Protein (U) [Mass/Vol] 315 mg/dL 0-9 [facility] RBC Auto (Bld) [#/Vol]Ordere d By: Angel Mejía on 06-29-2022 RBC (Bld) [#/Vol] 3.90 10*6/uL 3.90-5.60 [facility] Serum or plasma anion gap de terminationOrdered By: Angel Mejía on 06-29-2022 Anion gap [Moles/Vol] 13.4 mmol/L 6.0-15.0 [facility] Serum or plasma calcium farida urement (mass/volume)Ordered By: Angel Mejía on 06-29-2022 Calcium [Mass/Vol] 8.9 mg/dL 8.2-10.2 [facility] Serum or plasma chloride trina surement (moles/volume)Ordered By: Angel Mejía on 06-29-2022 Chloride [Moles/Vol] 101 mmol/L 95-114 [facility] Serum or plasma glucose farida urement (mass/volume)Ordered By: Angel Mejía on 06-29-2022 Glucose [Mass/Vol] 70 mg/dL 70-100 [facility] Comment on above: ADA recommended refe rence rangeRandom Glucose Reference Range is dependent on time and content of last meal. Glucose of more than 200 mg/dL in a nonstressed, ambulatory subject supports the diagnosis of Diabetes Mellitus. Serum or plasma intact parat hyroid hormone measurement (mass/volume)Ordered By: Angel Mejía on 06-29-2022 Parathyrin.intact [Mass/Vol] 244.2 pg/mL [facility] Serum or plasma potassium me asurement (moles/volume)Ordered By: Angel Mejía on 06-29-2022 Potassium [Moles/Vol] 4.7 mmol/L 3.5-5.1 [facility] Serum or plasma sodium measu rement (moles/volume)Ordered By: Angel Mejía on 06-29-2022 Sodium [Moles/Vol] 133 mmol/L 136-146 [facility] Serum or plasma total carbon dioxide measurement (moles/volume)Ordered By: Angel Mejía on 06-29-2022 CO2 [Moles/Vol] 23.3 mmol/L 22.0-30.0 [facility] Serum or plasma urea nitroge n measurement (mass/volume)Ordered By: Angel Mejía on 06-29-2022 Urea nitrogen [Mass/Vol] 35 mg/dL 05-11 [facility] Serum or plasma uric acid me asurement (mass/volume)Ordered By: Angel Mejía on 06-29-2022 Urate [Mass/Vol] 5.7 mg/dL 2.6-7.2 [facility] Specific gravity Auto test s trip (U) [Rel density]Ordered By: Angel Mejía on 06-29-2022 Specific gravity (U) [Rel density] 1.007 1.001-1.03 0 [facility] Squamous epithelial cells de tection in urine sediment by light microscopyOrdered By: Angel Mejía 06-29-2022 Epithelial cells.squamous LM Ql (Urine sed) 0-1 [HPF] 0-2 [facility] Urine bacteria detection by automated methodOrdered By: Angel Mejía on 06-29-2022 Bacteria Auto Ql (U) None seen None Seen [facility] Urine clarity by refractomet ry automatedOrdered By: Angel Mejía on 06-29-2022 Clarity Refractometry automated (U) Clear Clear [facility] Urine glucose measurement by automated test strip (mass/volume)Ordered By: Angel Mejía on 06-29-2022 Glucose Auto test strip (U) [Mass/Vol] Normal mg/dL Normal [facility] Urine hemoglobin detection b y automated test stripOrdered By: Angel Mejía on 06-29-2022 Hemoglobin Auto test strip Ql (U) 1+ Negative [facility] Urine leukocyte esterase det ection by automated test stripOrdered By: Angel Mejía on 06-29-2022 Leukocyte esterase Auto test strip Ql (U) Negative Negative [facility] Urine protein/creatinine rat ioOrdered By: Angel Mejía on 06-29-2022 Protein/Creatinine (U) [Ratio] 7955 mg/g{Cre} 0-200 [facility] Urobilinogen Auto test strip (U) [Mass/Vol]Ordered By: Angel Mejía on 06-29-2022 Urobilinogen (U) [Mass/Vol] Normal mg/dL Normal [facility] WBC Auto (Bld) [#/Vol]Ordere d By: Angel Mejía on 06-29-2022 WBC (Bld) [#/Vol] 7.3 10*3/uL 4.1-10.5 [facility] pH Auto test strip (U)Ordere d By: Angel Mejía on 06-29-2022 pH (U) 6.0 [pH] 5.0-9.0 [facility] Activated partial thrombopla stin time (aPTT) in platelet poor plasma by coagulation aOrdered By: Yobani Hansen on 06-13-2022 aPTT Coag (PPP) [Time] 42.5 s 25.1-36.5 [facility] Albumin [Mass/volume] in Ser um or PlasmaOrdered By: Yobani Hansen on 06-13-2022 Albumin [Mass/Vol] 2.3 g/dL 3.2-5.5 [facility] Automated erythrocytes count in urine sediment (number/area)Ordered By: Yobani Hansen on 06-13-2022 RBC Auto (Urine sed) [#/Area] 10-19 [HPF] 0-4 [facility] Automated leukocytes count i n urine sediment (number/area)Ordered By: Yobani Hansen on 06-13-2022 WBC Auto (Urine sed) [#/Area] 3-4 [HPF] 0-4 [facility] Basophils Auto (Bld) [#/Vol] Ordered By: Yobani Hansen on 06-13-2022 Basophils (Bld) [#/Vol] 0.1 10*3/uL 0.0-0.2 [facility] Basophils/100 WBC Auto (Bld) Ordered By: Yobani Hansen on 06-13-2022 Basophils/100 WBC (Bld) 1.3 % . [facility] Bilirubin Test strip Ql (U)O rdered By: Yobani Hansen on 06-13-2022 Bilirubin Ql (U) Negative Negative [facility] COVID CepheidOrdered By: Elina Hansen on 06-13-2022 SARS-CoV-2 (COVID-19) RNA HAO+probe Ql (Unsp spec) [facility] SARS-CoV-2 (COVID-19) Ab IA Ql Negative Negative [facility] Comment on above: This is a duplicate [employer] Xpert Xpress CoV-2/Flu/RSV Plus RNA by RT-PCR result to be used for statistical tracking purpose only. SARS-CoV-2 (COVID-19) RNA HAO+probe Ql (Unsp spec) [facility] Color Auto (U)Ordered By: Leandro Hansen on 06-13-2022 Color (U) Yellow Yellow [facility] Creatinine and Glomerular fi ltration rate.predicted panel (S/P/Bld)Ordered By: Yobani Hansen on 06-13-2022 Creatinine [Mass/Vol] 3.47 mg/dL 0.64-1.27 [facility] [facility] E[facility] Auto (Bld) [#/Vo l]Ordered By: Yobani Hansen on 06-13-2022 Eosinophils (Bld) [#/Vol] 0.1 10*3/uL 0.0-0.45 [facility] Eosinophils/100 WBC Auto (Bl d)Ordered By: Yobani Hansen on 06-13-2022 Eosinophils/100 WBC (Bld) 0.8 % . [facility] Erythrocyte distribution wid th Auto (RBC) [Ratio]Ordered By: Yobani Hansen on 06-13-2022 Erythrocyte distribution width (RBC) [Ratio] 13.0 % 12.0-14.8 [facility] Estimated glomerular filtrat ion rate (GFR) non- AmericanOrdered By: Yobani Hansen on 06-13-2022 GFR/1.73 sq M.predicted among non-blacks MDRD (S/P/Bld) [Vol rate/Area] 20 mL/Min [facility] Globulin Calc (S) [Mass/Vol] Ordered By: Yobani Hansen on 06-13-2022 Globulin (S) [Mass/Vol] 3.6 g/dL [facility] Glucose Glucometer (BldC) [M ass/Vol]Ordered By: Yobani Hansen on 06-13-2022 Glucose [Mass/Vol] 161 mg/dL [facility] Comment on above: Random Glucose Refer ence Range is dependent on time and content of last meal. Glucose of more than 200 mg/dL in a nonstressed, ambulatory subject supports the diagnosis of Diabetes Mellitus. Hematocrit Auto (Bld) [Volum e fraction]Ordered By: Yobani Hansen on 06-13-2022 Hematocrit (Bld) [Volume fraction] 34.0 % 38.8-50.0 [facility] Hemoglobin [Mass/volume] in BloodOrdered By: Yobani Hansen on 06-13-2022 Hemoglobin (Bld) [Mass/Vol] 11.3 g/dL 13.0-17.0 [facility] Ketones Auto test strip (U) [Mass/Vol]Ordered By: Yobani Hansen on 06-13-2022 Ketones (U) [Mass/Vol] Negative Negative Fi relaCounts include 234 beds at the [facility] Laboratory - Chemistry and C hemistry - challengeOrdered By: Yobani Hansen on 06-13-2022 Lipase [Catalytic activity/Vol] 20.0 U/L 22-51 [facility] Natriuretic peptide B (Bld) [Mass/Vol] 733.0 pg/mL 5-100 [facility] Laboratory - CoagulationOrde red By: Yobani Hansen on 06-13-2022 PT Coag (PPP) [Time] 11.7 s 9.0-12.9 [facility] Laboratory - Hematology and Cell countsOrdered By: Yobani Hansen on 06-13-2022 Nucleated RBC/100 WBC (Bld) [Ratio] 0.1 % 0-0.5 [facility] Laboratory - UrinalysisOrder ed By: Yobani Hansen on 06-13-2022 Hyaline casts LM Ql (Urine sed) 0-8 [LPF] 0-8 [facility] Leukocytes [#/volume] in Blo od by Automated countOrdered By: Yobani Hansen on 06-13-2022 WBC (Bld) [#/Vol] 9.0 10*3/uL 4.5-11.0 [facility] Lymphocytes Auto (Bld) [#/Vo l]Ordered By: Yobani Hansen on 06-13-2022 Lymphocytes (Bld) [#/Vol] 1.1 10*3/uL 1.00-4.8 [facility] Lymphocytes/100 WBC Auto (Bl d)Ordered By: Yobani Hansen on 06-13-2022 Lymphocytes/100 WBC (Bld) 12.6 % . [facility] MCH Auto (RBC) [Entitic mass ]Ordered By: Yobani Hansen on 06-13-2022 MCH (RBC) [Entitic mass] 28.6 pg 27.5-35.2 [facility] MCHC Auto (RBC) [Mass/Vol]Or dered By: Yobani Hansen on 06-13-2022 MCHC (RBC) [Mass/Vol] 33.3 g/dL 32.5-35.6 [facility] MCV Auto (RBC) [Entitic vol] Ordered By: Yobani Hansen on 06-13-2022 MCV (RBC) [Entitic vol] 86.0 fL 83.5-101 [facility] Monocytes Auto (Bld) [#/Vol] Ordered By: Yobani Hansen on 06-13-2022 Monocytes (Bld) [#/Vol] 0.4 10*3/uL 0.0-0.8 [facility] Monocytes/100 WBC Auto (Bld) Ordered By: Yobani Hansen on 06-13-2022 Monocytes/100 WBC (Bld) 4.3 % . [facility] Neutrophils Auto (Bld) [#/Vo l]Ordered By: Yobani Hansen on 06-13-2022 Neutrophils (Bld) [#/Vol] 7.3 10*3/uL 1.8-7.7 [facility] Neutrophils/100 WBC Auto (Bl d)Ordered By: Yobani Hansen on 06-13-2022 Neutrophils/100 WBC (Bld) 81.0 % . [facility] Nitrite Test strip Ql (U)Ord ered By: Yobani Hansen on 06-13-2022 Nitrite Ql (U) Negative Negative [facility] No Panel InformationOrdered By: Yobani Hansen on 06-13-2022 Estimated GFR () 24 mL/Min [facility] Comment on above: GFR estimated refere nce range: According to KDOQI guidelines, <60 ml/min/1.73m2 is sufficient to diagnose a patient with chronic kidney disease. Pharmacy Creatinine Clearance (Chem 29.92 [facility] Platelet mean volume Auto (B ld) [Entitic vol]Ordered By: Yobani aHnsen on 06-13-2022 Platelet mean volume (Bld) [Entitic vol] 8.1 fL 6.6-10.1 [facility] Platelet poor plasma interna tional normalized ratio (INR) by coagulation assay (relatOrdered By: Yobani Hansen on 06-13-2022 INR Coag (PPP) [Relative time] 1.0 {INR} [facility] Comment on above: INR Therapeutic Rang e [...] 06-13-2022 Platelets (Bld) [#/Vol] 237 10*3/uL 150-450 [facility] Protein Auto test strip (U) [Mass/Vol]Ordered By: Yobani Hansen on 06-13-2022 Protein (U) [Mass/Vol] 300 mg/dL Negative [facility] Protein [Mass/volume] in Ser um or PlasmaOrdered By: Yobani Hansen on 06-13-2022 Protein [Mass/Vol] 5.9 g/dL 6.1-7.9 [facility] RBC Auto (Bld) [#/Vol]Ordere d By: Yobani Hansen on 06-13-2022 RBC (Bld) [#/Vol] 3.95 10*6/uL 3.90-5.60 [facility] Serum or plasma alanine matthews otransferase measurement without P-5'-P (enzymatic activiOrdered By: Yobani Hansen on 06-13-2022 ALT No additional P-5'-P [Catalytic activity/Vol] 17 U/L 60 [facility] Serum or plasma albumin/glob ulin mass ratioOrdered By: Yobani Hansen on 06-13-2022 Albumin/Globulin [Mass ratio] 0.6 {ratio} [facility] Serum or plasma alkaline harriett sphatase measurement (enzymatic activity/volume)Ordered By: Yobani Hansen on 06-13-2022 ALP [Catalytic activity/Vol] 76 U/L 32-92 [facility] Serum or plasma anion gap de terminationOrdered By: Yobani Hansen on 06-13-2022 Anion gap [Moles/Vol] 13.3 mmol/L 6.0-15.0 [facility] Serum or plasma aspartate am inotransferase measurement (enzymatic activity/volume)Ordered By: Yobani Hansen on 06-13-2022 AST [Catalytic activity/Vol] 20 U/L 10-42 [facility] Serum or plasma calcium farida urement (mass/volume)Ordered By: Yobani Hansen on 06-13-2022 Calcium [Mass/Vol] 8.8 mg/dL 8.2-10.2 [facility] Serum or plasma chloride trina surement (moles/volume)Ordered By: Yobani Hansen on 06-13-2022 Chloride [Moles/Vol] 105 mmol/L 95-114 [facility] Serum or plasma glucose farida urement (mass/volume)Ordered By: Yobani Hansen on 06-13-2022 Glucose [Mass/Vol] 163 mg/dL 70-100 [facility] Comment on above: ADA recommended refe rence rangeRandom Glucose Reference Range is dependent on time and content of last meal. Glucose of more than 200 mg/dL in a nonstressed, ambulatory subject supports the diagnosis of Diabetes Mellitus. Serum or plasma potassium me asurement (moles/volume)Ordered By: Yobani Hansen on 06-13-2022 Potassium [Moles/Vol] 4.7 mmol/L 3.5-5.1 [facility] Serum or plasma sodium measu rement (moles/volume)Ordered By: Yobani Hansen on 06-13-2022 Sodium [Moles/Vol] 138 mmol/L 136-146 [facility] Serum or plasma total biliru bin measurement (mass/volume)Ordered By: Yobani Hansen on 06-13-2022 Bilirubin [Mass/Vol] 0.4 mg/dL 0.3-1.2 [facility] Serum or plasma total carbon dioxide measurement (moles/volume)Ordered By: Yobani Hansen on 06-13-2022 CO2 [Moles/Vol] 24.4 mmol/L 22.0-30.0 [facility] Serum or plasma urea nitroge n measurement (mass/volume)Ordered By: Yobani Hansen on 06-13-2022 Urea nitrogen [Mass/Vol] 47 mg/dL 9-23 [facility] Specific gravity Auto test s trip (U) [Rel density]Ordered By: Yobani Hansen on 06-13-2022 Specific gravity (U) [Rel density] 1.011 1.001-1.03 0 [facility] Squamous epithelial cells de tection in urine sediment by light microscopyOrdered By: Yobani Hansen on 06-13-2022 Epithelial cells.squamous LM Ql (Urine sed) 0-1 [HPF] 0-2 [facility] Troponin I.cardiac [Mass/vol ume] in Serum or Plasma by High sensitivity methodOrdered By: Yobani Hansen on 06-13-2022 Troponin I.cardiac High sensitivity method [Mass/Vol] 49 pg/mL 0-20 [facility] Urine bacteria detection by automated methodOrdered By: Yobani Hansen on 06-13-2022 Bacteria Auto Ql (U) None seen None Seen [facility] Urine clarity by refractomet ry automatedOrdered By: Yobani Hansen on 06-13-2022 Clarity Refractometry automated (U) Clear Clear [facility] Urine glucose measurement by automated test strip (mass/volume)Ordered By: Yobani Hansen on 06-13-2022 Glucose Auto test strip (U) [Mass/Vol] 250 mg/dL Normal [facility] Urine hemoglobin detection b y automated test stripOrdered By: Yobani Hansen on 06-13-2022 Hemoglobin Auto test strip Ql (U) 2+ Negative [facility] Urine leukocyte esterase det ection by automated test stripOrdered By: Yobani Hansen on 06-13-2022 Leukocyte esterase Auto test strip Ql (U) Negative Negative [facility] Urobilinogen Auto test strip (U) [Mass/Vol]Ordered By: Yobani Hansen on 06-13-2022 Urobilinogen (U) [Mass/Vol] Normal mg/dL Normal [facility] pH Auto test strip (U)Ordere d By: Yobani Hansen on 06-13-2022 pH (U) 6.5 [pH] 5.0-9.0 [facility] Activated partial thrombopla stin time (aPTT) in platelet poor plasma by coagulation aOrdered By: Govind Anderson on 06-03-2022 aPTT Coag (PPP) [Time] 41.0 s 25.1-36.5 [facility] Albumin [Mass/volume] in Ser um or PlasmaOrdered By: Govind Anderson on 06-03-2022 Albumin [Mass/Vol] 2.0 g/dL 3.2-5.5 [facility] Basophils Auto (Bld) [#/Vol] Ordered By: Govind Anderson on 06-03-2022 Basophils (Bld) [#/Vol] 0.1 10*3/uL 0.0-0.2 [facility] Basophils/100 WBC Auto (Bld) Ordered By: Govind Anderson on 10-16-2022 Basophils/100 WBC (Bld) 1.2 % . [facility] Creatine kinase [Enzymatic a ctivity/volume] in Serum or PlasmaOrdered By: Govind Anderson on 06-03-2022 CK [Catalytic activity/Vol] 246 U/L 22-269 [facility] Creatinine and Glomerular fi ltration rate.predicted panel (S/P/Bld)Ordered By: Govind Anderson on 06-03-2022 Creatinine [Mass/Vol] 3.27 mg/dL 0.64-1.27 [facility] Eosinophils Auto (Bld) [#/Vo l]Ordered By: Govind Anderson on 06-03-2022 Eosinophils (Bld) [#/Vol] 0.1 10*3/uL 0.0-0.45 [facility] Eosinophils/100 WBC Auto (Bl d)Ordered By: Govind Anderson on 06-03-2022 Eosinophils/100 WBC (Bld) 1.9 % . [facility] Erythrocyte distribution wid th Auto (RBC) [Ratio]Ordered By: Govind Anderson on 06-03-2022 Erythrocyte distribution width (RBC) [Ratio] 12.4 % 12.0-14.8 [facility] Estimated glomerular filtrat ion rate (GFR) non- AmericanOrdered By: Govind Anderson on 06-03-2022 GFR/1.73 sq M.predicted among non-blacks MDRD (S/P/Bld) [Vol rate/Area] 21 mL/Min [facility] Globulin Calc (S) [Mass/Vol] Ordered By: Govind Anderson on 06-03-2022 Globulin (S) [Mass/Vol] 3.2 g/dL [facility] Hematocrit Auto (Bld) [Volum e fraction]Ordered By: Govind Anderson on 06-03-2022 Hematocrit (Bld) [Volume fraction] 28.6 % 38.8-50.0 [facility] Hemoglobin [Mass/volume] in BloodOrdered By: Govind Anderson on 06-03-2022 Hemoglobin (Bld) [Mass/Vol] 9.9 g/dL 13.0-17.0 [facility] Laboratory - Chemistry and C hemistry - challengeOrdered By: Govind Anderson on 06-03-2022 Natriuretic peptide B (Bld) [Mass/Vol] 569.0 pg/mL 5-100 [facility] Laboratory - CoagulationOrde red By: Govind Anderson on 06-03-2022 PT Coag (PPP) [Time] 12.6 s 9.0-12.9 [facility] Laboratory - Hematology and Cell countsOrdered By: Govind Anderson on 06-03-2022 Nucleated RBC/100 WBC (Bld) [Ratio] 0.1 % 0-0.5 [facility] Leukocytes [#/volume] in Blo od by Automated countOrdered By: Govind Anderson on 06-03-2022 WBC (Bld) [#/Vol] 6.8 10*3/uL 4.5-11.0 [facility] Lymphocytes Auto (Bld) [#/Vo l]Ordered By: Govind Anderson on 06-03-2022 Lymphocytes (Bld) [#/Vol] 1.4 10*3/uL 1.00-4.8 [facility] Lymphocytes/100 WBC Auto (Bl d)Ordered By: Govind Anderson on 06-03-2022 Lymphocytes/100 WBC (Bld) 21.1 % . [facility] MCH Auto (RBC) [Entitic mass ]Ordered By: Govind Anderson on 06-03-2022 MCH (RBC) [Entitic mass] 29.3 pg 27.5-35.2 [facility] MCHC Auto (RBC) [Mass/Vol]Or dered By: Govind Anderson on 06-03-2022 MCHC (RBC) [Mass/Vol] 34.7 g/dL 32.5-35.6 [facility] MCV Auto (RBC) [Entitic vol] Ordered By: Govind Anderson on 06-03-2022 MCV (RBC) [Entitic vol] 84.4 fL 83.5-101 [facility] Monocytes Auto (Bld) [#/Vol] Ordered By: Govind Anderson on 06-03-2022 Monocytes (Bld) [#/Vol] 0.3 10*3/uL 0.0-0.8 [facility] Monocytes/100 WBC Auto (Bld) Ordered By: Govind Anderson on 06-03-2022 Monocytes/100 WBC (Bld) 5.1 % . [facility] Neutrophils Auto (Bld) [#/Vo l]Ordered By: Govind Anderson on 06-03-2022 Neutrophils (Bld) [#/Vol] 4.8 10*3/uL 1.8-7.7 [facility] Neutrophils/100 WBC Auto (Bl d)Ordered By: Govind Anderson on 06-03-2022 Neutrophils/100 WBC (Bld) 70.7 % . [facility] No Panel InformationOrdered By: Govind Anderson on 06-03-2022 Estimated GFR () 26 mL/Min [facility] Comment on above: GFR estimated refere nce range: According to KDOQI guidelines, <60 ml/min/1.73m2 is sufficient to diagnose a patient with chronic kidney disease. Pharmacy Creatinine Clearance (Chem 33.73 [facility] Platelet mean volume Auto (B ld) [Entitic vol]Ordered By: Govind Anderson on 06-03-2022 Platelet mean volume (Bld) [Entitic vol] 8.1 fL 6.6-10.1 [facility] Platelet poor plasma interna tional normalized ratio (INR) by coagulation assay (relatOrdered By: Govind Anderson on 06-03-2022 INR Coag (PPP) [Relative time] 1.1 {INR} [facility] Comment on above: INR Therapeutic Rang e [...] 4.5 Platelets Auto (Bld) [#/Vol] Ordered By: Govind Anderson on 06-03-2022 Platelets (Bld) [#/Vol] 232 10*3/uL 150-450 [facility] Protein [Mass/volume] in Ser um or PlasmaOrdered By: Govind Anderson on 06-03-2022 Protein [Mass/Vol] 5.2 g/dL 6.1-7.9 [facility] RBC Auto (Bld) [#/Vol]Ordere d By: Govind Anderson on 06-03-2022 RBC (Bld) [#/Vol] 3.39 10*6/uL 3.90-5.60 [facility] Serum or plasma alanine matthews otransferase measurement without P-5'-P (enzymatic activiOrdered By: Govind Anderson on 06-03-2022 ALT No additional P-5'-P [Catalytic activity/Vol] 13 U/L 10-60 [facility] Serum or plasma albumin/glob ulin mass ratioOrdered By: Govind Anderson on 06-03-2022 Albumin/Globulin [Mass ratio] 0.6 {ratio} [facility] Serum or plasma alkaline harriett sphatase measurement (enzymatic activity/volume)Ordered By: Govind Anderson on 06-03-2022 ALP [Catalytic activity/Vol] 77 U/L 32-92 [facility] Serum or plasma anion gap de terminationOrdered By: Govind Anderson on 06-03-2022 Anion gap [Moles/Vol] 11.6 mmol/L 6.0-15.0 [facility] Serum or plasma aspartate am inotransferase measurement (enzymatic activity/volume)Ordered By: Govind Anderson on 06-03-2022 AST [Catalytic activity/Vol] 15 U/L 10-42 [facility] Serum or plasma calcium farida urement (mass/volume)Ordered By: Govind Anderson on 06-03-2022 Calcium [Mass/Vol] 7.9 mg/dL 8.2-10.2 [facility] Serum or plasma chloride trina surement (moles/volume)Ordered By: Govind Anderson on 06-03-2022 Chloride [Moles/Vol] 101 mmol/L 95-114 [facility] Serum or plasma creatine kin ase MB (CKMB)/total creatine kinase (CK) ratio by calculaOrdered By: Govind Anderson on 06-03-2022 CK.MB Calc [Catalytic fraction] 3.1 % 0.00-2.50 [facility] Serum or plasma creatine kin ase MB measurement (mass/volume)Ordered By: Govind Anderson on 06-03-2022 CK.MB [Mass/Vol] 7.7 ng/mL 0.6-6.3 [facility] Serum or plasma glucose farida urement (mass/volume)Ordered By: Govind Anderson on 06-03-2022 Glucose [Mass/Vol] 185 mg/dL 70-100 [facility] Comment on above: ADA recommended refe rence rangeRandom Glucose Reference Range is dependent on time and content of last meal. Glucose of more than 200 mg/dL in a nonstressed, ambulatory subject supports the diagnosis of Diabetes Mellitus. Serum or plasma potassium me asurement (moles/volume)Ordered By: Govind Anderson on 06-03-2022 Potassium [Moles/Vol] 3.7 mmol/L 3.5-5.1 [facility] Serum or plasma sodium measu rement (moles/volume)Ordered By: Govind Anderson on 06-03-2022 Sodium [Moles/Vol] 132 mmol/L 136-146 [facility] Serum or plasma total biliru bin measurement (mass/volume)Ordered By: Govind Anderson on 06-03-2022 Bilirubin [Mass/Vol] 0.4 mg/dL 0.3-1.2 [facility] Serum or plasma total carbon dioxide measurement (moles/volume)Ordered By: Govind Anderson on 06-03-2022 CO2 [Moles/Vol] 23.1 mmol/L 22.0-30.0 [facility] Serum or plasma urea nitroge n measurement (mass/volume)Ordered By: Govind Anderson on 06-03-2022 Urea nitrogen [Mass/Vol] 35 mg/dL 9-23 [facility] Troponin I.cardiac [Mass/vol ume] in Serum or Plasma by High sensitivity methodOrdered By: Govind Anderson on 06-03-2022 Troponin I.cardiac High sensitivity method [Mass/Vol] 44 pg/mL 0-20 [facility] Bacterial blood cultureOrder ed By: Romain Roy on 05-26-2022 Bacteria identified Cx Nom (Bld) NO GROWTH 5 DAYS [facility] No Panel InformationOrdered By: Romain Roy on 05-22-2022 SARS Antigen (LFIA) [facility] Activated partial thrombopla stin time (aPTT) in platelet poor plasma by coagulation aOrdered By: Romain Roy on 05-21-2022 aPTT Coag (PPP) [Time] 38.0 s 25.1-36.5 [facility] Bacterial blood cultureOrder ed By: Romain Roy on 05-21-2022 Bacteria identified Cx Nom (Bld) NO GROWTH 5 DAYS [facility] Basophils Auto (Bld) [#/Vol] Ordered By: Romain Roy on 05-21-2022 Basophils (Bld) [#/Vol] 0.1 10*3/uL 0.0-0.2 [facility] Basophils/100 WBC Auto (Bld) Ordered By: Romain Roy on 05-21-2022 Basophils/100 WBC (Bld) 1.6 % . [facility] Blood hemoglobin measurement (mass/volume)Ordered By: Romain Roy on 05-21-2022 Hemoglobin (Bld) [Mass/Vol] 11.0 g/dL 13.0-17.0 [facility] Blood leukocytes automated c ount (number/volume)Ordered By: Romain Roy on 05-21-2022 WBC (Bld) [#/Vol] 7.6 10*3/uL 4.5-11.0 [facility] COVID-19 SOFIAOrdered By: Jenn Roy on 05-21-2022 SARS-CoV+SARS-CoV-2 (COVID-19) Ag IA.rapid Ql (Resp) Negative Negative [facility] Comment on above: This is a duplicate Jenni SARS Antigen (BARAK) result to be used for statistical tracking purpose only. Creatinine and Glomerular fi ltration rate.predicted panel (S/P/Bld)Ordered By: Romain Roy on 05-21-2022 Creatinine [Mass/Vol] 3.25 mg/dL 0.64-1.27 [facility] Eosinophils Auto (Bld) [#/Vo l]Ordered By: Romain Roy on 05-21-2022 Eosinophils (Bld) [#/Vol] 0.1 10*3/uL 0.0-0.45 [facility] Eosinophils/100 WBC Auto (Bl d)Ordered By: Romain Roy on 05-21-2022 Eosinophils/100 WBC (Bld) 1.8 % . [facility] Erythrocyte distribution wid th Auto (RBC) [Ratio]Ordered By: Romain Roy on 05-21-2022 Erythrocyte distribution width (RBC) [Ratio] 12.6 % 12.0-14.8 [facility] Estimated glomerular filtrat ion rate (GFR) non- AmericanOrdered By: Romain Roy on 05-21-2022 GFR/1.73 sq M.predicted among non-blacks MDRD (S/P/Bld) [Vol rate/Area] 22 mL/Min [facility] Hematocrit Auto (Bld) [Volum e fraction]Ordered By: Romain Roy on 05-21-2022 Hematocrit (Bld) [Volume fraction] 31.2 % 38.8-50.0 [facility] Laboratory - CoagulationOrde red By: Romain Roy on 05-21-2022 PT Coag (PPP) [Time] 11.6 s 9.0-12.9 [facility] Laboratory - Hematology and Cell countsOrdered By: Romain Roy on 05-21-2022 Nucleated RBC/100 WBC (Bld) [Ratio] 0.0 % 0-0.5 [facility] Lymphocytes Auto (Bld) [#/Vo l]Ordered By: Romain Roy on 05-21-2022 Lymphocytes (Bld) [#/Vol] 1.3 10*3/uL 1.00-4.8 [facility] Lymphocytes/100 WBC Auto (Bl d)Ordered By: Romain Roy on 05-21-2022 Lymphocytes/100 WBC (Bld) 17.4 % . [facility] MCH Auto (RBC) [Entitic mass ]Ordered By: Romain Roy on 05-21-2022 MCH (RBC) [Entitic mass] 29.6 pg 27.5-35.2 [facility] MCHC Auto (RBC) [Mass/Vol]Or dered By: Romain Roy on 05-21-2022 MCHC (RBC) [Mass/Vol] 35.1 g/dL 32.5-35.6 [facility] MCV Auto (RBC) [Entitic vol] Ordered By: Romain Roy on 05-21-2022 MCV (RBC) [Entitic vol] 84.3 fL 83.5-101 [facility] Monocytes Auto (Bld) [#/Vol] Ordered By: Romain Roy on 05-21-2022 Monocytes (Bld) [#/Vol] 0.3 10*3/uL 0.0-0.8 [facility] Monocytes/100 WBC Auto (Bld) Ordered By: Romain Roy on 05-21-2022 Monocytes/100 WBC (Bld) 4.5 % . [facility] Neutrophils Auto (Bld) [#/Vo l]Ordered By: Romain Roy on 05-21-2022 Neutrophils (Bld) [#/Vol] 5.7 10*3/uL 1.8-7.7 [facility] Neutrophils/100 WBC Auto (Bl d)Ordered By: Romain Roy on 05-21-2022 Neutrophils/100 WBC (Bld) 74.7 % . [facility] No Panel InformationOrdered By: Romain Roy on 05-21-2022 Estimated GFR () 26 mL/Min [facility] Comment on above: GFR estimated refere nce range: According to KDOQI guidelines, <60 ml/min/1.73m2 is sufficient to diagnose a patient with chronic kidney disease. Pharmacy Creatinine Clearance (Chem 32.57 [facility] SARS Antigen (LFIA) [facility] Phosphate [Mass/volume] in S gretta or PlasmaOrdered By: Romain Roy on 05-21-2022 Phosphate [Mass/Vol] 4.4 mg/dL 2.5-4.6 [facility] Platelet mean volume Auto (B ld) [Entitic vol]Ordered By: Romain Roy on 05-21-2022 Platelet mean volume (Bld) [Entitic vol] 8.4 fL 6.6-10.1 [facility] Platelet poor plasma interna tional normalized ratio (INR) by coagulation assay (relatOrdered By: Romain Roy on 05-21-2022 INR Coag (PPP) [Relative time] 1.0 {INR} [facility] Comment on above: INR Therapeutic Rang e [...] 05-21-2022 Platelets (Bld) [#/Vol] 216 10*3/uL 150-450 [facility] RBC Auto (Bld) [#/Vol]Ordere d By: Romain Roy on 05-21-2022 RBC (Bld) [#/Vol] 3.71 10*6/uL 3.90-5.60 [facility] Serum or plasma anion gap de terminationOrdered By: Romain Roy on 05-21-2022 Anion gap [Moles/Vol] 13.4 mmol/L 6.0-15.0 [facility] Serum or plasma calcium farida urement (mass/volume)Ordered By: Romain Roy on 05-21-2022 Calcium [Mass/Vol] 8.3 mg/dL 8.2-10.2 [facility] Serum or plasma chloride trina surement (moles/volume)Ordered By: Romain Roy on 05-21-2022 Chloride [Moles/Vol] 99 mmol/L 95-114 [facility] Serum or plasma glucose farida urement (mass/volume)Ordered By: Romain Roy on 05-21-2022 Glucose [Mass/Vol] 396 mg/dL 70-100 [facility] Comment on above: ADA recommended refe rence rangeRandom Glucose Reference Range is dependent on time and content of last meal. Glucose of more than 200 mg/dL in a nonstressed, ambulatory subject supports the diagnosis of Diabetes Mellitus. Serum or plasma potassium me asurement (moles/volume)Ordered By: Romain Roy on 05-21-2022 Potassium [Moles/Vol] 3.3 mmol/L 3.5-5.1 [facility] Serum or plasma sodium measu rement (moles/volume)Ordered By: Romain Roy on 05-21-2022 Sodium [Moles/Vol] 132 mmol/L 136-146 [facility] Serum or plasma total biliru bin measurement (mass/volume)Ordered By: Romain Roy on 05-21-2022 Bilirubin [Mass/Vol] 0.4 mg/dL 0.3-1.2 [facility] Serum or plasma total carbon dioxide measurement (moles/volume)Ordered By: Romain Roy on 05-21-2022 CO2 [Moles/Vol] 22.9 mmol/L 22.0-30.0 [facility] Serum or plasma urea nitroge n measurement (mass/volume)Ordered By: Romain Roy on 05-21-2022 Urea nitrogen [Mass/Vol] 36 mg/dL 05-11 [facility] Serum or plasma uric acid me asurement (mass/volume)Ordered By: Romain Roy on 05-21-2022 Urate [Mass/Vol] 6.1 mg/dL 2.6-7.2 [facility] Troponin I.cardiac [Mass/vol ume] in Serum or Plasma by High sensitivity methodOrdered By: Romain Roy on 05-21-2022 Troponin I.cardiac High sensitivity method [Mass/Vol] 49 pg/mL 0-20 [facility] Urine lactic acid measuremen tOrdered By: Romain Roy on 05-21-2022 Lactate (U) [Moles/Vol] 0.7 mmol/L 0.5-2.2 [facility] Activated partial thrombopla stin time (aPTT) in platelet poor plasma by coagulation aOrdered By: Jorje Small on 05-18-2022 aPTT Coag (PPP) [Time] 38.8 s 25.1-36.5 [facility] Basophils Auto (Bld) [#/Vol] Ordered By: Jorje Small on 05-18-2022 Basophils (Bld) [#/Vol] 0.1 10*3/uL 0.0-0.2 [facility] Basophils/100 WBC Auto (Bld) Ordered By: Jorje Small on 05-18-2022 Basophils/100 WBC (Bld) 1.7 % . [facility] Blood hemoglobin measurement (mass/volume)Ordered By: Jorje Small on 05-18-2022 Hemoglobin (Bld) [Mass/Vol] 10.6 g/dL 13.0-17.0 [facility] Blood leukocytes automated c ount (number/volume)Ordered By: Jorje Small on 05-18-2022 WBC (Bld) [#/Vol] 7.6 10*3/uL 4.5-11.0 [facility] Eosinophils Auto (Bld) [#/Vo l]Ordered By: Jorje Small on 05-18-2022 Eosinophils (Bld) [#/Vol] 0.1 10*3/uL 0.0-0.45 [facility] Eosinophils/100 WBC Auto (Bl d)Ordered By: Jorje Small on 05-18-2022 Eosinophils/100 WBC (Bld) 1.7 % . [facility] Erythrocyte distribution wid th Auto (RBC) [Ratio]Ordered By: Jorje Small on 05-18-2022 Erythrocyte distribution width (RBC) [Ratio] 12.9 % 12.0-14.8 [facility] Hematocrit Auto (Bld) [Volum e fraction]Ordered By: Jorje Small on 05-18-2022 Hematocrit (Bld) [Volume fraction] 30.6 % 38.8-50.0 [facility] Laboratory - CoagulationOrde red By: Jorje Small on 05-18-2022 PT Coag (PPP) [Time] 11.7 s 9.0-12.9 [facility] Laboratory - Hematology and Cell countsOrdered By: Jorje Small on 05-18-2022 Nucleated RBC/100 WBC (Bld) [Ratio] 0.1 % 0-0.5 [facility] Lymphocytes Auto (Bld) [#/Vo l]Ordered By: Jorje Small on 05-18-2022 Lymphocytes (Bld) [#/Vol] 1.0 10*3/uL 1.00-4.8 [facility] Lymphocytes/100 WBC Auto (Bl d)Ordered By: Jorje Small on 05-18-2022 Lymphocytes/100 WBC (Bld) 13.8 % . [facility] MCH Auto (RBC) [Entitic mass ]Ordered By: Jorje Small on 05-18-2022 MCH (RBC) [Entitic mass] 29.5 pg 27.5-35.2 [facility] MCHC Auto (RBC) [Mass/Vol]Or dered By: Jorje Small on 05-18-2022 MCHC (RBC) [Mass/Vol] 34.5 g/dL 32.5-35.6 [facility] MCV Auto (RBC) [Entitic vol] Ordered By: Jorje Small on 05-18-2022 MCV (RBC) [Entitic vol] 85.5 fL 83.5-101 [facility] Monocytes Auto (Bld) [#/Vol] Ordered By: Jroje Small on 05-18-2022 Monocytes (Bld) [#/Vol] 0.3 10*3/uL 0.0-0.8 [facility] Monocytes/100 WBC Auto (Bld) Ordered By: Jorje Small on 05-18-2022 Monocytes/100 WBC (Bld) 4.5 % . [facility] Neutrophils Auto (Bld) [#/Vo l]Ordered By: Jorje Small on 05-18-2022 Neutrophils (Bld) [#/Vol] 5.9 10*3/uL 1.8-7.7 [facility] Neutrophils/100 WBC Auto (Bl d)Ordered By: Jorje Small on 05-18-2022 Neutrophils/100 WBC (Bld) 78.3 % . [facility] Platelet mean volume Auto (B ld) [Entitic vol]Ordered By: Jorje Small on 05-18-2022 Platelet mean volume (Bld) [Entitic vol] 9.0 fL 6.6-10.1 [facility] Platelet poor plasma interna tional normalized ratio (INR) by coagulation assay (relatOrdered By: Jorje Small on 05-18-2022 INR Coag (PPP) [Relative time] 1.0 {INR} [facility] Comment on above: INR Therapeutic Rang e [...] 05-18-2022 Platelets (Bld) [#/Vol] 215 10*3/uL 150-450 [facility] RBC Auto (Bld) [#/Vol]Ordere d By: Jorje Small on 05-18-2022 RBC (Bld) [#/Vol] 3.58 10*6/uL 3.90-5.60 [facility] Albumin [Mass/volume] in Ser um or PlasmaOrdered By: Angel Mejía on 04-20-2022 Albumin [Mass/Vol] 2.5 g/dL 2.9-4.4 [facility] Albumin/Protein.total in 24 hour Urine by ElectrophoresisOrdered By: Angel Mejía on 04-20-2022 Albumin Elph (24H U) [Mass fraction] 78.6 % . [facility] Blood hemoglobin measurement (mass/volume)Ordered By: Angel Mejía on 04-20-2022 Hemoglobin (Bld) [Mass/Vol] 9.5 g/dL 13.0-17.0 [facility] Body fluid albumin measureme nt (mass/volume)Ordered By: Angel Mejía on 04-20-2022 Albumin (Body fld) [Mass/Vol] 2.2 g/dL 3.2-5.[address] [facility] [address] biopsyOrdered By: Varsha ricardo on 04-20-2022 CT biopsy See comment [id number] [facility] Comment on above: TESTING SENT TO [facility] ORP SEE REPORT TESTING SENT TO [facility] ORPSEE REPORT Creatinine [Mass/volume] in UrineOrdered By: Angel Mejía on 04-20-2022 Creatinine (U) [Mass/Vol] 160.7 mg/dL [facility] Comment on above: No reference range e stablished Creatinine and Glomerular fi ltration rate.predicted panel (S/P/Bld)Ordered By: Angel Mejía on 04-20-2022 Creatinine [Mass/Vol] 3.18 mg/dL 0.64-1.27 [facility] Erythrocyte distribution wid th Auto (RBC) [Ratio]Ordered By: Angel Mejía on 04-20-2022 Erythrocyte distribution width (RBC) [Ratio] 13.1 % 12.0-14.8 [facility] Estimated glomerular filtrat ion rate (GFR) non- AmericanOrdered By: Angel Mejía on 04-20-2022 GFR/1.73 sq M.predicted among non-blacks MDRD (S/P/Bld) [Vol rate/Area] 22 mL/Min [facility] Ferritin [Mass/volume] in Se rum or PlasmaOrdered By: Angel Mejía on 04-20-2022 Ferritin [Mass/Vol] 119.5 ng/mL 23.9-336.2 [facility] Gamma globulin/Protein.total in 24 hour Urine by ElectrophoresisOrdered By: Angel Mejía on 04-20-2022 Gamma globulin Elph (24H U) [Mass fraction] 8.7 % . [facility] Hematocrit Auto (Bld) [Volum e fraction]Ordered By: Angel Mejía on 04-20-2022 Hematocrit (Bld) [Volume fraction] 27.1 % 38.8-50.0 [facility] IgA [Mass/volume] in Serum o r PlasmaOrdered By: Angel Mejía on 04-20-2022 IgA [Mass/Vol] 310 mg/dL 90-386 [facility] IgG [Mass/volume] in Serum o r PlasmaOrdered By: Angel Mejía on 04-20-2022 IgG [Mass/Vol] 821 mg/dL 603-1613 [facility] IgM [Mass/volume] in Serum o r PlasmaOrdered By: Angel Mejía on 04-20-2022 IgM [Mass/Vol] 211 mg/dL 20-172 [facility] Comment on above: Performed at: [facility] [place] [address] [place], [place] [id number] [employer] Forming: Pablito Alexander PhD, Phone: [phone] Performed at: [facility] [place], [place] [id number] Director: Pablito Alexander PhD, Phone: [phone] Immunofixation for UrineOrde red By: Angel Mejía on 04-20-2022 Interpretation Immunofixation (U) [Interp] See comment . [facility] Comment on above: Immunofixation shows IgG monoclonal protein with kappa light chain specificity. Performed at: [place] [address] [employer]: Pablito Alexander PhD, Phone: [phone] Immunofixation shows IgG monoclonal protein with kappalight chain specificity.Performed at: [place] [address] Director: Pablito Alexander PhD, Phone: [phone] Immunoglobulin light chains. kappa.free [Mass/volume] in SerumOrdered By: Angel Kym on 04-20-2022 Immunoglobulin light chains.kappa.free (S) [Mass/Vol] 112.0 mg/L 3.3-19.4 [facility] Immunoglobulin light chains. kappa.free/Immunoglobulin light chains.lambda.free [MassOrdered By: Angel Kym on 04-20-2022 Immunoglobulin light chains.kappa.free/Immun oglobulin light chains.lambda.free (S) [Mass ratio] 1.83 0.26-1.65 [facility] Comment on above: Performed at: [facility] [place] [address] [employer]: Pablito Alexander PhD, Phone: [phone] Performed at: [facility] [address] [id number] Director: Pablito Alexander PhD, Phone: [phone] Immunoglobulin light chains. lambda.free [Mass/volume] in Serum or PlasmaOrdered By: Angel Kym on 04-20-2022 Immunoglobulin light chains.lambda.free [Mass/Vol] 61.3 mg/L 5.7-26.3 [facility] Iron [Mass/volume] in Serum or PlasmaOrdered By: Angel Kym on 04-20-2022 Iron [Mass/Vol] 44 ug/dL 40-160 [facility] Iron binding capacity [Mass/ volume] in Serum or PlasmaOrdered By: Angel Kym on 04-20-2022 Iron binding capacity [Mass/Vol] [facility] Comment on above: Test not performed Iron saturation [Mass Fracti on] in Serum or PlasmaOrdered By: Angel Mejía on 04-20-2022 Iron saturation [Mass fraction] [facility] Comment on above: Test not performed Laboratory - Chemistry and C hemistry - challengeOrdered By: Angel Mejía on 04-20-2022 Magnesium [Mass/Vol] 1.9 mg/dL 1.6-2.6 [facility] MCH Auto (RBC) [Entitic mass ]Ordered By: Angel Mejía on 04-20-2022 MCH (RBC) [Entitic mass] 30.0 pg 27.5-35.2 [facility] MCHC Auto (RBC) [Mass/Vol]Or dered By: Angel Mejía on 04-20-2022 MCHC (RBC) [Mass/Vol] 34.9 g/dL 32.5-35.6 [facility] MCV Auto (RBC) [Entitic vol] Ordered By: Angel Mejía on 04-20-2022 MCV (RBC) [Entitic vol] 86.0 fL 83.5-101 [facility] No Panel InformationOrdered By: Angel Mejía on 04-20-2022 Estimated GFR () 27 mL/Min [facility] Comment on above: GFR estimated refere nce range: According to KDOQI guidelines, <60 ml/min/1.73m2 is sufficient to diagnose a patient with chronic kidney disease. Pharmacy Creatinine Clearance (Chem N/A [facility] Protein Electrophoresis [facility] Comment: g/dL Not Observed [facility] Comment on above: SPE shows asymmetric al gamma. Protein Electrophoresis Note See comment . [facility] Comment on above: Protein electrophore sis scan will follow via computer, mail, or neon electrician delivery. Performed at: [facility] [id number] [employer]: Pablito Alexander PhD, Phone: [phone] Protein electrophore sis scan will follow via computer,mail, or neon electrician delivery.Performed at: [facility] [id number] Director: Pablito Alexander PhD, Phone: [phone] Serum Immunofixation Comment: . [facility] Comment on above: Presence of monoclon al protein is unclear at this time. Suggest repeat in 3 to 6 months if clinically indicated. Presence of monoclon al protein is unclear at this time. Suggestrepeat in 3 to 6 months if clinically indicated. Miscellaneous Test See comment [facility] Comment on above: See report. Scanned copy available in EMR. Urine Random Prot Electrophor Note See comment . [facility] Comment on above: Protein electrophore sis scan will follow via computer, mail, or neon electrician delivery. Performed at: [facility] [id number] [employer]: Pablito Alexander PhD, Phone: [phone] Protein electrophore sis scan will follow via computer,mail, or neon electrician delivery.Performed at: [email or web address] [address] [id number] Director: Pablito Alexander PhD, Phone: [phone] Phosphate [Mass/volume] in S gretta or PlasmaOrdered By: Angel Kym on 04-20-2022 Phosphate [Mass/Vol] 5.4 mg/dL 2.5-4.6 [facility] Platelet mean volume Auto (B ld) [Entitic vol]Ordered By: Angel Kym on 04-20-2022 Platelet mean volume (Bld) [Entitic vol] 8.5 fL 6.6-10.1 [facility] Platelets Auto (Bld) [#/Vol] Ordered By: Angel Kym on 04-20-2022 Platelets (Bld) [#/Vol] 252 10*3/uL 150-450 [facility] Protein [Mass/volume] in Ser um or PlasmaOrdered By: Angel Kym on 04-20-2022 Protein [Mass/Vol] 5.5 g/dL 6.0-8.5 [facility] Protein [Mass/volume] in Uri neOrdered By: Angel Kym on 04-20-2022 Protein (U) [Mass/Vol] 840 mg/dL 0-9 [facility] Protein (U) [Mass/Vol] 976.2 mg/dL Not Estab. [facility] Comment on above: Results confirmed on dilution. Results confirmed on dilution. Protein.monoclonal/Protein.t otal in 24 hour Urine by ElectrophoresisOrdered By: Angel Mejía on 04-20-2022 Protein.monoclonal Elph (24H U) [Mass fraction] Not observed % Not Observed [facility] RBC Auto (Bld) [#/Vol]Ordere d By: Angel Mejía on 04-20-2022 RBC (Bld) [#/Vol] 3.16 10*6/uL 3.90-5.60 [facility] Serum globulin measurement ( mass/volume)Ordered By: Angel Mejía on 04-20-2022 Globulin (S) [Mass/Vol] 3.0 g/dL 2.2-3.9 [facility] Serum or plasma albumin/glob ulin mass ratioOrdered By: Angel Mejía on 04-20-2022 Albumin/Globulin [Mass ratio] 0.8 {ratio} 0.7-1.7 [facility] Serum or plasma alpha 1 glob ulin measurement by electrophoresis (mass/volume)Ordered By: Angel Mejía on 04-20-2022 Alpha 1 globulin Elph [Mass/Vol] 0.3 g/dL 0.0-0.4 [facility] Serum or plasma alpha 2 glob ulin measurement by electrophoresis (mass/volume)Ordered By: Angel Mejía on 04-20-2022 Alpha 2 globulin Elph [Mass/Vol] 1.0 g/dL 0.4-1.0 [facility] Serum or plasma anion gap de terminationOrdered By: Angel Mejía on 04-20-2022 Anion gap [Moles/Vol] 14.6 mmol/L 6.0-15.0 [facility] Serum or plasma beta globuli n measurement by electrophoresis (mass/volume)Ordered By: Angel Mejía on 04-20-2022 Beta globulin Elph [Mass/Vol] 0.8 g/dL 0.7-1.3 [facility] Serum or plasma calcium farida urement (mass/volume)Ordered By: Angel Mejía on 04-20-2022 Calcium [Mass/Vol] 8.2 mg/dL 8.2-10.2 [facility] Serum or plasma chloride trina surement (moles/volume)Ordered By: Angel Mejía on 04-20-2022 Chloride [Moles/Vol] 102 mmol/L 95-114 [facility] Serum or plasma gamma globul in measurement by electrophoresis (mass/volume)Ordered By: Angel Mejía on 04-20-2022 Gamma globulin Elph [Mass/Vol] 0.9 g/dL 0.4-1.8 [facility] Serum or plasma glucose farida urement (mass/volume)Ordered By: Angel Mejía on 04-20-2022 Glucose [Mass/Vol] 211 mg/dL 70-100 [facility] Comment on above: ADA recommended refe rence [...] on 04-20-2022 Potassium [Moles/Vol] 4.0 mmol/L 3.5-5.1 [facility] Serum or plasma sodium measu rement (moles/volume)Ordered By: Angel Mejía on 04-20-2022 Sodium [Moles/Vol] 134 mmol/L 136-146 [facility] Serum or plasma total carbon dioxide measurement (moles/volume)Ordered By: Angel Mejía on 04-20-2022 CO2 [Moles/Vol] 21.4 mmol/L 22.0-30.0 [facility] Serum or plasma urea nitroge n measurement (mass/volume)Ordered By: Angel Mejía on 04-20-2022 Urea nitrogen [Mass/Vol] 31 mg/dL 9-23 [facility] Urine alpha 1 globulin/total protein by electrophoresisOrdered By: Angel Mejía on 04-20-2022 Alpha 1 globulin Elph (U) [Mass fraction] 0.4 % . [facility] Urine alpha 2 globulin/total protein ratio by electrophoresisOrdered By: Angel Mejía on 04-20-2022 Alpha 2 globulin Elph (U) [Mass fraction] 3.8 % . [facility] Urine beta globulin measurem ent by electrophoresis (mass/volume)Ordered By: Angel Mejía on 04-20-2022 Beta globulin Elph (U) [Mass/Vol] 8.6 % . [facility] Urine protein/creatinine rat ioOrdered By: Angel Mejía on 04-20-2022 Protein/Creatinine (U) [Ratio] 5227 mg/g{Cre} 0-200 [facility] WBC Auto (Bld) [#/Vol]Ordere d By: Angel Mejía on 04-20-2022 WBC (Bld) [#/Vol] 7.7 10*3/uL 4.1-10.5 [facility] Troponin I.cardiac [Mass/vol ume] in Serum or Plasma by High sensitivity methodOrdered By: Hector Mann on 04-10-2022 Troponin I.cardiac High sensitivity method [Mass/Vol] 31 pg/mL 0-20 [facility] Activated partial thrombopla stin time (aPTT) in platelet poor plasma by coagulation aOrdered By: Hector Mann on 04-09-2022 aPTT Coag (PPP) [Time] 41.2 s 25.1-36.5 [facility] Basophils Auto (Bld) [#/Vol] Ordered By: Hector Mann on 04-09-2022 Basophils (Bld) [#/Vol] 0.1 10*3/uL 0.0-0.2 [facility] Basophils/100 WBC Auto (Bld) Ordered By: Hector Mann on 04-09-2022 Basophils/100 WBC (Bld) 1.8 % . [facility] Blood hemoglobin measurement (mass/volume)Ordered By: Hector Mann on 04-09-2022 Hemoglobin (Bld) [Mass/Vol] 9.0 g/dL 13.0-17.0 [facility] Blood leukocytes automated c ount (number/volume)Ordered By: Hector Mann on 04-09-2022 WBC (Bld) [#/Vol] 7.1 10*3/uL 4.5-11.0 [facility] Creatinine and Glomerular fi ltration rate.predicted panel (S/P/Bld)Ordered By: Hector Mann on 04-09-2022 Creatinine [Mass/Vol] 2.63 mg/dL 0.64-1.27 [facility] Eosinophils Auto (Bld) [#/Vo l]Ordered By: Hector Mann on 04-09-2022 Eosinophils (Bld) [#/Vol] 0.2 10*3/uL 0.0-0.45 [facility] Eosinophils/100 WBC Auto (Bl d)Ordered By: Hector Mann on 04-09-2022 Eosinophils/100 WBC (Bld) 2.4 % . [facility] Erythrocyte distribution wid th Auto (RBC) [Ratio]Ordered By: Hector Mann on 04-09-2022 Erythrocyte distribution width (RBC) [Ratio] 13.5 % 12.0-14.8 [facility] Estimated glomerular filtrat ion rate (GFR) non- AmericanOrdered By: Hector Mann on 04-09-2022 GFR/1.73 sq M.predicted among non-blacks MDRD (S/P/Bld) [Vol rate/Area] 28 mL/Min [facility] Hematocrit Auto (Bld) [Volum e fraction]Ordered By: Hector Mann on 04-09-2022 Hematocrit (Bld) [Volume fraction] 25.8 % 38.8-50.0 [facility] Laboratory - Chemistry and C hemistry - challengeOrdered By: Hector Mann on 04-09-2022 Natriuretic peptide B (Bld) [Mass/Vol] 808.0 pg/mL 5-100 [facility] Laboratory - CoagulationOrde red By: Hector Mann on 04-09-2022 PT Coag (PPP) [Time] 12.2 s 9.0-12.9 [facility] Laboratory - Hematology and Cell countsOrdered By: Hector Mann on 04-09-2022 Nucleated RBC/100 WBC (Bld) [Ratio] 0.0 % 0-0.5 [facility] Lymphocytes Auto (Bld) [#/Vo l]Ordered By: Hector Mann on 04-09-2022 Lymphocytes (Bld) [#/Vol] 1.6 10*3/uL 1.00-4.8 [facility] Lymphocytes/100 WBC Auto (Bl d)Ordered By: Hector Mann on 04-09-2022 Lymphocytes/100 WBC (Bld) 21.8 % . [facility] MCH Auto (RBC) [Entitic mass ]Ordered By: Hector Mann on 04-09-2022 MCH (RBC) [Entitic mass] 30.0 pg 27.5-35.2 [facility] MCHC Auto (RBC) [Mass/Vol]Or dered By: Hector Mann on 04-09-2022 MCHC (RBC) [Mass/Vol] 34.9 g/dL 32.5-35.6 [facility] MCV Auto (RBC) [Entitic vol] Ordered By: Hector Mann on 04-09-2022 MCV (RBC) [Entitic vol] 86.0 fL 83.5-101 [facility] Monocytes Auto (Bld) [#/Vol] Ordered By: Hector Mann on 04-09-2022 Monocytes (Bld) [#/Vol] 0.3 10*3/uL 0.0-0.8 [facility] Monocytes/100 WBC Auto (Bld) Ordered By: Hector Mann on 04-09-2022 Monocytes/100 WBC (Bld) 4.5 % . [facility] Neutrophils Auto (Bld) [#/Vo l]Ordered By: Hector Mann on 04-09-2022 Neutrophils (Bld) [#/Vol] 4.9 10*3/uL 1.8-7.7 [facility] Neutrophils/100 WBC Auto (Bl d)Ordered By: Hector Mann on 04-09-2022 Neutrophils/100 WBC (Bld) 69.5 % . [facility] No Panel InformationOrdered By: Hector Mann on 04-09-2022 Estimated GFR () 33 mL/Min [facility] Comment on above: GFR estimated refere nce range: According to KDOQI guidelines, <60 ml/min/1.73m2 is sufficient to diagnose a patient with chronic kidney disease. Pharmacy Creatinine Clearance (Chem 41.94 [facility] Platelet mean volume Auto (B ld) [Entitic vol]Ordered By: Hector Mann on 04-09-2022 Platelet mean volume (Bld) [Entitic vol] 7.9 fL 6.6-10.1 [facility] Platelet poor plasma interna tional normalized ratio (INR) by coagulation assay (relatOrdered By: Hector Mann on 04-09-2022 INR Coag (PPP) [Relative time] 1.1 {INR} [facility] Comment on above: INR Therapeutic Rang e [...] 04-09-2022 Platelets (Bld) [#/Vol] 215 10*3/uL 150-450 [facility] RBC Auto (Bld) [#/Vol]Ordere d By: Hector Mann on 04-09-2022 RBC (Bld) [#/Vol] 3.00 10*6/uL 3.90-5.60 [facility] Serum or plasma calcium farida urement (mass/volume)Ordered By: Hector Mann on 04-09-2022 Calcium [Mass/Vol] 8.0 mg/dL 8.2-10.2 [facility] Serum or plasma chloride trina surement (moles/volume)Ordered By: Hector Mann on 04-09-2022 Chloride [Moles/Vol] 104 mmol/L 95-114 [facility] Serum or plasma glucose farida urement (mass/volume)Ordered By: Hector Mann on 04-09-2022 Glucose [Mass/Vol] 236 mg/dL 70-100 [facility] Comment on above: ADA recommended refe rence [...] on 04-09-2022 Potassium [Moles/Vol] 3.7 mmol/L 3.5-5.1 [facility] Serum or plasma sodium measu rement (moles/volume)Ordered By: Hector Mann on 04-09-2022 Sodium [Moles/Vol] 134 mmol/L 136-146 [facility] Serum or plasma total carbon dioxide measurement (moles/volume)Ordered By: Hector Mann on 04-09-2022 CO2 [Moles/Vol] 21.8 mmol/L 22.0-30.0 [facility] Serum or plasma urea nitroge n measurement (mass/volume)Ordered By: Hector Mann on 04-09-2022 Urea nitrogen [Mass/Vol] 31 mg/dL 9-23 [facility] Automated erythrocytes count in urine sediment (number/area)Ordered By: Angel Mejía on 03-13-2022 RBC Auto (Urine sed) [#/Area] 20-49 [HPF] 0-4 [facility] Automated leukocytes count i n urine sediment (number/area)Ordered By: Angel Mejía on 03-13-2022 WBC Auto (Urine sed) [#/Area] 1-2 [HPF] 0-4 [facility] Bilirubin Test strip Ql (U)O rdered By: Angel Mejía on 03-13-2022 Bilirubin Ql (U) Negative Negative [facility] Blood hemoglobin measurement (mass/volume)Ordered By: Angel Mejía on 03-13-2022 Hemoglobin (Bld) [Mass/Vol] 9.5 g/dL 13.0-17.0 [facility] Body fluid albumin measureme nt (mass/volume)Ordered By: Angel Mejía on 03-13-2022 Albumin (Body fld) [Mass/Vol] 2.1 g/dL 3.2-5.[address] [facility] [address] biopsyOrdered By: Varsha ricardo on 03-13-2022 Transferrin [Mass/Vol] 140 mg/dL 180-380 relaCounts include 234 beds [facility] the [facility] Color Auto (U)Ordered By: Ab yusra Mejía on 03-13-2022 Color (U) Yellow Yellow [facility] Creatinine [Mass/volume] in UrineOrdered By: Angel Mejía on 03-13-2022 Creatinine (U) [Mass/Vol] 54.4 mg/dL [facility] Comment on above: No reference range e stablished Creatinine and Glomerular fi ltration rate.predicted panel (S/P/Bld)Ordered By: Angel Mejía on 03-13-2022 Creatinine [Mass/Vol] 3.06 mg/dL 0.64-1.27 [facility] Erythrocyte distribution wid th Auto (RBC) [Ratio]Ordered By: Angel Mejía on 03-13-2022 Erythrocyte distribution width (RBC) [Ratio] 13.4 % 12.0-14.8 [facility] Estimated glomerular filtrat ion rate (GFR) non- AmericanOrdered By: Angel Mejía on 03-13-2022 GFR/1.73 sq M.predicted among non-blacks MDRD (S/P/Bld) [Vol rate/Area] 23 mL/Min [facility] Ferritin [Mass/volume] in Se rum or PlasmaOrdered By: Angel Mejía on 03-13-2022 Ferritin [Mass/Vol] 118.8 ng/mL 23.9-336.2 [facility] Folate [Mass/volume] in Seru m or PlasmaOrdered By: Rolando Olivares on 03-13-2022 Folate [Mass/Vol] 7.9 ng/mL >5.9 [facility] Comment on above: Folate reference ran ge: >5.9 ng/ml The WHO technical consultation on folate and vitamin b12 deficiencies has determined that folate concentrations less than 4 ng/ml are considered deficient. Folate reference ran ge: >5.9 ng/mlThe WHO technical consultation on folate and vitamin [id number] has determined that folate concentrations lessthan 4 ng/ml are considered deficient. Hematocrit Auto (Bld) [Volum e fraction]Ordered By: Angel Kym on 03-13-2022 Hematocrit (Bld) [Volume fraction] 27.7 % 38.8-50.0 [facility] Immunoglobulin light chains. kappa.free [Mass/volume] in SerumOrdered By: Angel Kym on 03-13-2022 Immunoglobulin light chains.kappa.free (S) [Mass/Vol] 124.5 mg/L 3.3-19.4 [facility] Immunoglobulin light chains. kappa.free/Immunoglobulin light chains.lambda.free [MassOrdered By: Angel Kym on 03-13-2022 Immunoglobulin light chains.kappa.free/Immun oglobulin light chains.lambda.free (S) [Mass ratio] 2.13 0.26-1.65 [facility] Comment on above: Performed at: [facility] [address], [place] [id number] [employer] Forming: Pablito Alexander PhD, Phone: [phone] Performed at: [facility] [address], [place] [id number] Director: Pablito Alexander PhD, Phone: [phone] Immunoglobulin light chains. lambda.free [Mass/volume] in Serum or PlasmaOrdered By: Angel Kym on 03-13-2022 Immunoglobulin light chains.lambda.free [Mass/Vol] 58.4 mg/L 5.7-26.3 [facility] Iron [Mass/volume] in Serum or PlasmaOrdered By: Angel Kym on 03-13-2022 Iron [Mass/Vol] 44 ug/dL 40-160 [facility] Iron binding capacity [Mass/ volume] in Serum or PlasmaOrdered By: Angel Kym on 03-13-2022 Iron binding capacity [Mass/Vol] 196 ug/dL 255-450 [facility] Iron saturation [Mass Fracti on] in Serum or PlasmaOrdered By: Angel Mejía on 03-13-2022 Iron saturation [Mass fraction] 22.0 % 20-50 [facility] Ketones Auto test strip (U) [Mass/Vol]Ordered By: Angel Mejía on 03-13-2022 Ketones (U) [Mass/Vol] Negative Negative [facility] Laboratory - Chemistry and C hemistry - challengeOrdered By: Rolando Olivares on 03-13-2022 Cobalamin (Vitamin B12) [Mass/Vol] 580 pg/mL 180-914 [facility] Laboratory - Chemistry and C hemistry - challengeOrdered By: Angel Mejía on 03-13-2022 Magnesium [Mass/Vol] 1.9 mg/dL 1.6-2.6 [facility] Laboratory - UrinalysisOrder ed By: Angel Mejía on 03-13-2022 Hyaline casts LM Ql (Urine sed) 0-8 [LPF] 0-8 [facility] MCH Auto (RBC) [Entitic mass ]Ordered By: Angel Mejía on 03-13-2022 MCH (RBC) [Entitic mass] 29.8 pg 27.5-35.2 [facility] MCHC Auto (RBC) [Mass/Vol]Or dered By: Angel Mejía on 03-13-2022 MCHC (RBC) [Mass/Vol] 34.2 g/dL 32.5-35.6 [facility] MCV Auto (RBC) [Entitic vol] Ordered By: Angel Mejía on 03-13-2022 MCV (RBC) [Entitic vol] 87.3 fL 83.5-101 [facility] Nitrite Test strip Ql (U)Ord ered By: Angel Mejía on 03-13-2022 Nitrite Ql (U) Negative Negative [facility] No Panel InformationOrdered By: Angel Mejía on 03-13-2022 25-Hydroxy Vitamin D Total < 7.0 ng/mL 30-100 [facility] Comment on above: VITAMIN D STATUS 25( [place])VITAMIN D RANGE (ng/mL) Deficient <20 Insufficient 20 to <30 Sufficient 30 to 100 Reference: Chemo Campbell, Sergey SIMENTAL, et al. Evaluation,treatment, and prevention of vitamin D deficiency; an Endocrine Society clinical practice guideline. JCEM. 2010; 96(7):191-. VITAMIN D STATUS 25( [place])VITAMIN D RANGE (ng/mL) Deficient <20 Insufficient 20 to <30Sufficient 30 to 100Reference: Chemo Campbell, Sergey SIMENTAL, et al. Evaluation,treatment, and prevention of vitamin D deficiency; an Endocrine Society clinical practice guideline. JCEM. 2010; 96(7):1911-30. Estimated GFR () 28 mL/Min [facility] Comment on above: GFR estimated refere nce range: According to KDOQI guidelines, <60 ml/min/1.73m2 is sufficient to diagnose a patient with chronic kidney disease. Pharmacy Creatinine Clearance (Chem N/A [facility] Phosphate [Mass/volume] in S gretta or PlasmaOrdered By: Angel Mejía on 03-13-2022 Phosphate [Mass/Vol] 4.5 mg/dL 2.5-4.6 [facility] Platelet mean volume Auto (B ld) [Entitic vol]Ordered By: Angel Mejía on 03-13-2022 Platelet mean volume (Bld) [Entitic vol] 8.5 fL 6.6-10.1 [facility] Platelets Auto (Bld) [#/Vol] Ordered By: Angel Mejía on 03-13-2022 Platelets (Bld) [#/Vol] 232 10*3/uL 150-450 [facility] Protein Auto test strip (U) [Mass/Vol]Ordered By: Angel Mejía on 03-13-2022 Protein (U) [Mass/Vol] 300 mg/dL Negative [facility] Protein [Mass/volume] in Uri neOrdered By: Angel Mejía on 03-13-2022 Protein (U) [Mass/Vol] 408 mg/dL 0-9 [facility] RBC Auto (Bld) [#/Vol]Ordere d By: Angel Mejía on 03-13-2022 RBC (Bld) [#/Vol] 3.17 10*6/uL 3.90-5.60 [facility] Serum or plasma calcium farida urement (mass/volume)Ordered By: Angel Mejía on 03-13-2022 Calcium [Mass/Vol] 8.4 mg/dL 8.2-10.2 [facility] Serum or plasma chloride trina surement (moles/volume)Ordered By: Angel Mejía on 03-13-2022 Chloride [Moles/Vol] 105 mmol/L 95-114 [facility] Serum or plasma glucose farida urement (mass/volume)Ordered By: Angel Meíja on 03-13-2022 Glucose [Mass/Vol] 163 mg/dL 70-100 [facility] Comment on above: ADA recommended refe rence [...] on 03-13-2022 Parathyrin.intact [Mass/Vol] 164.8 pg/mL 12-88 [facility] Serum or plasma methylmalona te measurement (moles/volume)Ordered By: Rolando Olivares on 03-13-2022 Methylmalonate [Moles/Vol] 2205 nmol/L 0-378 [facility] Comment on above: This test was develo ped and its performance characteristics determined by [employer]. It has not been cleared or approved by the Food and Drug Administration. Performed at: [facility] [address] [id number] [employer] Forming: Saulo Araujo MD, Phone: [phone] This test was develo ped and its performance characteristicsdetermined by [employer]. It has not been cleared orapproved by the Food and Drug Administration.Performed at: [facility] [id number] [place], [place] [id number] Director: Saulo Araujo MD, Phone: [phone] Serum or plasma potassium me asurement (moles/volume)Ordered By: Angel Mejía on 03-13-2022 Potassium [Moles/Vol] 4.9 mmol/L 3.5-5.1 [facility] Serum or plasma sodium measu rement (moles/volume)Ordered By: Angel Mejía on 03-13-2022 Sodium [Moles/Vol] 135 mmol/L 136-146 [facility] Serum or plasma total carbon dioxide measurement (moles/volume)Ordered By: Angel Mejía on 03-13-2022 CO2 [Moles/Vol] 24.2 mmol/L 22.0-30.0 [facility] Serum or plasma urea nitroge n measurement (mass/volume)Ordered By: Angel Mejía on 03-13-2022 Urea nitrogen [Mass/Vol] 37 mg/dL 9-23 [facility] Serum or plasma uric acid me asurement (mass/volume)Ordered By: Angel Mejía on 03-13-2022 Urate [Mass/Vol] 5.8 mg/dL 2.6-7.2 [facility] Specific gravity Auto test s trip (U) [Rel density]Ordered By: Angel Mejía on 03-13-2022 Specific gravity (U) [Rel density] 1.012 1.001-1.03 0 [facility] Squamous epithelial cells de tection in urine sediment by light microscopyOrdered By: Angel Mejía on 03-13-2022 Epithelial cells.squamous LM Ql (Urine sed) 0-1 [HPF] 0-2 [facility] Urine bacteria detection by automated methodOrdered By: Angel Mejía on 03-13-2022 Bacteria Auto Ql (U) None seen None Seen [facility] Urine clarity by refractomet ry automatedOrdered By: Angel Mejía on 03-13-2022 Clarity Refractometry automated (U) Clear Clear [facility] Urine glucose measurement by automated test strip (mass/volume)Ordered By: Angel Mejía on 03-13-2022 Glucose Auto test strip (U) [Mass/Vol] 500 mg/dL Normal [facility] Urine hemoglobin detection b y automated test stripOrdered By: Angel Mejía on 03-13-2022 Hemoglobin Auto test strip Ql (U) 1+ Negative [facility] Urine leukocyte esterase det ection by automated test stripOrdered By: Angel Kym on 03-13-2022 Leukocyte esterase Auto test strip Ql (U) Negative Negative [facility] Urine protein/creatinine rat ioOrdered By: Angel Kym on 03-13-2022 Protein/Creatinine (U) [Ratio] 7500 mg/g{Cre} 0-200 [facility] Urobilinogen Auto test strip (U) [Mass/Vol]Ordered By: Angel Cortezdir on 03-13-2022 Urobilinogen (U) [Mass/Vol] Normal mg/dL Normal [facility] WBC Auto (Bld) [#/Vol]Ordere d By: Angel Mejía on 03-13-2022 WBC (Bld) [#/Vol] 7.6 10*3/uL 4.1-10.5 [facility] pH Auto test strip (U)Ordere d By: Angel Kym on 03-13-2022 pH (U) 6.0 [pH] 5.0-9.0 [facility] Basophils Auto (Bld) [#/Vol] Ordered By: Rolando Olivares on 03-09-2022 Basophils (Bld) [#/Vol] 0.1 10*3/uL 0.0-0.2 [facility] Basophils/100 WBC Auto (Bld) Ordered By: Rolando Olivares on 03-09-2022 Basophils/100 WBC (Bld) 1.4 % . [facility] Blood hemoglobin measurement (mass/volume)Ordered By: Rolando Olivares on 03-09-2022 Hemoglobin (Bld) [Mass/Vol] 9.4 g/dL 13.0-17.0 [facility] Blood leukocytes automated c ount (number/volume)Ordered By: Rolando Olivares on 03-09-2022 WBC (Bld) [#/Vol] 6.4 10*3/uL 4.5-11.0 [facility] Creatinine and Glomerular fi ltration rate.predicted panel (S/P/Bld)Ordered By: Rolando Olivares on 03-09-2022 Creatinine [Mass/Vol] 2.87 mg/dL 0.64-1.27 [facility] Eosinophils Auto (Bld) [#/Vo l]Ordered By: Rolando Olivares on 03-09-2022 Eosinophils (Bld) [#/Vol] 0.1 10*3/uL 0.0-0.45 [facility] Eosinophils/100 WBC Auto (Bl d)Ordered By: Rolando Olivares on 03-09-2022 Eosinophils/100 WBC (Bld) 2.2 % . [facility] Erythrocyte distribution wid th Auto (RBC) [Ratio]Ordered By: Rolando Olivares on 03-09-2022 Erythrocyte distribution width (RBC) [Ratio] 13.5 % 12.0-14.8 [facility] Estimated glomerular filtrat ion rate (GFR) non- AmericanOrdered By: Rolando Olivares on 03-09-2022 GFR/1.73 sq M.predicted among non-blacks MDRD (S/P/Bld) [Vol rate/Area] 25 mL/Min [facility] Glucose mean value [Mass/vol ume] in Blood Estimated from glycated hemoglobinOrdered By: Rolando Olivares on 03-09-2022 Average glucose Estimated from glycated hemoglobin (Bld) [Mass/Vol] 189 mg/dL [facility] Hematocrit Auto (Bld) [Volum e fraction]Ordered By: Rolando Olivares on 03-09-2022 Hematocrit (Bld) [Volume fraction] 27.1 % 38.8-50.0 [facility] Hemoglobin A1c percentageOrd ered By: Rolando Olivares on 03-09-2022 HbA1c (Bld) [Mass fraction] 8.2 % 4.3-5.6 [facility] Comment on above: Increased risk for d iabetes: 5.7 - 6.4 diabetes: >6.4 glycemic control for adults with diabetes: <7.0 Increased risk for d iabetes: 5.7 - 6.4diabetes: >6.4glycemic control for adults with diabetes: <7.0 Laboratory - Hematology and Cell countsOrdered By: Rolando Olivares on 03-09-2022 Nucleated RBC/100 WBC (Bld) [Ratio] 0.0 % 0-0.5 [facility] Lymphocytes Auto (Bld) [#/Vo l]Ordered By: Rolando Olivares on 03-09-2022 Lymphocytes (Bld) [#/Vol] 1.3 10*3/uL 1.00-4.8 [facility] Lymphocytes/100 WBC Auto (Bl d)Ordered By: Rolando Olivares on 03-09-2022 Lymphocytes/100 WBC (Bld) 20.2 % . [facility] MCH Auto (RBC) [Entitic mass ]Ordered By: Rolando Olivares on 03-09-2022 MCH (RBC) [Entitic mass] 30.0 pg 27.5-35.2 [facility] MCHC Auto (RBC) [Mass/Vol]Or dered By: Rolando Olivares on 03-09-2022 MCHC (RBC) [Mass/Vol] 34.7 g/dL 32.5-35.6 [facility] MCV Auto (RBC) [Entitic vol] Ordered By: Rolando Olivares on 03-09-2022 MCV (RBC) [Entitic vol] 86.4 fL 83.5-101 [facility] Monocytes Auto (Bld) [#/Vol] Ordered By: Rolando Olivares on 03-09-2022 Monocytes (Bld) [#/Vol] 0.3 10*3/uL 0.0-0.8 [facility] Monocytes/100 WBC Auto (Bld) Ordered By: Rolando Olivares on 03-09-2022 Monocytes/100 WBC (Bld) 5.2 % . [facility] Neutrophils Auto (Bld) [#/Vo l]Ordered By: Rolando Olivares on 03-09-2022 Neutrophils (Bld) [#/Vol] 4.6 10*3/uL 1.8-7.7 [facility] Neutrophils/100 WBC Auto (Bl d)Ordered By: Rolando Olivares on 03-09-2022 Neutrophils/100 WBC (Bld) 71.0 % . [facility] No Panel InformationOrdered By: Rolando Olivares on 03-09-2022 Estimated GFR () 30 mL/Min [facility] Comment on above: GFR estimated refere nce range: According to KDOQI guidelines, <60 ml/min/1.73m2 is sufficient to diagnose a patient with chronic kidney disease. Pharmacy Creatinine Clearance (Chem N/A [facility] Platelet mean volume Auto (B ld) [Entitic vol]Ordered By: Rolando Olivares on 03-09-2022 Platelet mean volume (Bld) [Entitic vol] 8.5 fL 6.6-10.1 [facility] Platelets Auto (Bld) [#/Vol] Ordered By: Rolando Olivares on 03-09-2022 Platelets (Bld) [#/Vol] 209 10*3/uL 150-450 [facility] RBC Auto (Bld) [#/Vol]Ordere d By: Rolando Olivares on 03-09-2022 RBC (Bld) [#/Vol] 3.14 10*6/uL 3.90-5.60 [facility] Serum or plasma calcium farida urement (mass/volume)Ordered By: Rolando Olivares on 03-09-2022 Calcium [Mass/Vol] 8.1 mg/dL 8.2-10.2 [facility] Serum or plasma chloride trina surement (moles/volume)Ordered By: Rolando Olivares on 03-09-2022 Chloride [Moles/Vol] 105 mmol/L 95-114 [facility] Serum or plasma glucose farida urement (mass/volume)Ordered By: Rolando Olivares on 03-09-2022 Glucose [Mass/Vol] 237 mg/dL 70-100 [facility] Comment on above: ADA recommended refe rence [...] on 03-09-2022 Potassium [Moles/Vol] 4.2 mmol/L 3.5-5.1 [facility] Serum or plasma sodium measu rement (moles/volume)Ordered By: Rolando Olivares on 03-09-2022 Sodium [Moles/Vol] 137 mmol/L 136-146 [facility] Serum or plasma total carbon dioxide measurement (moles/volume)Ordered By: Rolando Olivares on 03-09-2022 CO2 [Moles/Vol] 24.6 mmol/L 22.0-30.0 [facility] Serum or plasma urea nitroge n measurement (mass/volume)Ordered By: Rolando Olivares on 03-09-2022 Urea nitrogen [Mass/Vol] 39 mg/dL 9 [facility] Activated partial thrombopla stin time (aPTT) in platelet poor plasma by coagulation aOrdered By: Angel Mejía on 12-25-2021 aPTT Coag (PPP) [Time] 39.1 s 25.1-36.5 [facility] Albumin [Mass/volume] in Ser um or PlasmaOrdered By: Angel Mejía on 12-25-2021 Albumin [Mass/Vol] 2.1 g/dL 3.2-5.5 [facility] Albumin [Mass/Vol] 2.3 g/dL 2.9-4.4 [facility] Albumin/Protein.total in 24 hour Urine by ElectrophoresisOrdered By: Angel Mejía on 12-25-2021 Albumin Elph (24H U) [Mass fraction] 64.4 % . [facility] Automated erythrocytes count in urine sediment (number/area)Ordered By: Angel Mejía on 12-25-2021 RBC Auto (Urine sed) [#/Area] 20-49 [HPF] 0-4 [facility] Automated leukocytes count i n urine sediment (number/area)Ordered By: Angel Mejía on 12-25-2021 WBC Auto (Urine sed) [#/Area] 3-4 [HPF] 0-4 [facility] Bilirubin Test strip Ql (U)O rdered By: Angel Mejía on 12-25-2021 Bilirubin Ql (U) Negative Negative [facility] Blood hemoglobin measurement (mass/volume)Ordered By: Angel Mejía on 12-25-2021 Hemoglobin (Bld) [Mass/Vol] 10.6 g/dL 13.0-17.0 [facility] CT biopsyOrdered By: Varsha ricardo on 12-25-2021 Transferrin [Mass/Vol] 138 mg/dL 180-380 [facility] Color Auto (U)Ordered By: Ab yusra Mejía on 12-25-2021 Color (U) Yellow Yellow [facility] Creatinine and Glomerular fi ltration rate.predicted panel (S/P/Bld)Ordered By: Angel Mejía on 12-25-2021 Creatinine [Mass/Vol] 2.03 mg/dL 0.64-1.27 [facility] Erythrocyte distribution wid th Auto (RBC) [Ratio]Ordered By: Angel Mejía on 12-25-2021 Erythrocyte distribution width (RBC) [Ratio] 12.9 % 12.0-14.8 [facility] Estimated glomerular filtrat ion rate (GFR) non- AmericanOrdered By: Angel Mejía on 12-25-2021 GFR/1.73 sq M.predicted among non-blacks MDRD (S/P/Bld) [Vol rate/Area] 37 mL/Min [facility] Ferritin [Mass/volume] in Se rum or PlasmaOrdered By: Angel Mejía on 12-25-2021 Ferritin [Mass/Vol] 165.7 ng/mL 23.9-336.2 [facility] Folate [Mass/volume] in Seru m or PlasmaOrdered By: Angel Mejía on 12-25-2021 Folate [Mass/Vol] 11.1 ng/mL >5.9 [facility] Comment on above: Folate reference ran ge: >5.9 ng/ml The WHO technical consultation on folate and vitamin b12 deficiencies has determined that folate concentrations less than 4 ng/ml are considered deficient. Gamma globulin/Protein.total in 24 hour Urine by ElectrophoresisOrdered By: Angel Mejía on 12-25-2021 Gamma globulin Elph (24H U) [Mass fraction] 10.4 % . [facility] Hematocrit Auto (Bld) [Volum e fraction]Ordered By: Angel Mejía on 12-25-2021 Hematocrit (Bld) [Volume fraction] 30.1 % 38.8-50.0 [facility] Hepatitis B virus surface Ag [Presence] in Serum or Plasma by ImmunoassayOrdered By: Angel Mejía on 12-25-2021 HBV surface Ag IA Ql Negative Negative [facility] Comment on above: Performed at: [facility] [address] [id number] [employer] Forming: Pablito Alexander PhD, Phone: [phone] IgA [Mass/volume] in Serum o r PlasmaOrdered By: Angel Kym on 12-25-2021 IgA [Mass/Vol] 373 mg/dL 90-386 [facility] IgG [Mass/volume] in Serum o r PlasmaOrdered By: Angel Kym on 12-25-2021 IgG [Mass/Vol] 801 mg/dL 603-1613 [facility] IgM [Mass/volume] in Serum o r PlasmaOrdered By: Angel Kym on 12-25-2021 IgM [Mass/Vol] 284 mg/dL 20-172 [facility] Comment on above: Performed at: [facility] [address] [id number] [employer] Forming: Pablito Alexander PhD, Phone: [phone] Immunofixation for UrineOrde red By: Angel Mejía on 12-25-2021 Interpretation Immunofixation (U) [Interp] Comment: . [facility] Comment on above: Presence of monoclon al protein is unclear at this time. Suggest repeat in 3 to 6 months if clinically indicated. Performed at: [facility] [id number] [employer] Forming: Pablito Alexander PhD, Phone: [phone] Immunoglobulin light chains. kappa.free [Mass/volume] in SerumOrdered By: Angel Kym on 12-25-2021 Immunoglobulin light chains.kappa.free (S) [Mass/Vol] 93.9 mg/L 3.3-19.4 [facility] Immunoglobulin light chains. kappa.free/Immunoglobulin light chains.lambda.free [MassOrdered By: Angel Kmy on 12-25-2021 Immunoglobulin light chains.kappa.free/Immun oglobulin light chains.lambda.free (S) [Mass ratio] 1.78 0.26-1.65 [facility] Comment on above: Performed at: [facility] [address] [id number] [employer] Forming: Pablito Alexander PhD, Phone: [phone] Immunoglobulin light chains. lambda.free [Mass/volume] in Serum or PlasmaOrdered By: Angel Mejía on 12-25-2021 Immunoglobulin light chains.lambda.free [Mass/Vol] 52.7 mg/L 5.7-26.3 [facility] Iron [Mass/volume] in Serum or PlasmaOrdered By: Angel Mejía on 12-25-2021 Iron [Mass/Vol] 44 ug/dL 40-160 [facility] Iron binding capacity [Mass/ volume] in Serum or PlasmaOrdered By: Angel Mejía on 12-25-2021 Iron binding capacity [Mass/Vol] 193 ug/dL 255-450 [facility] Iron saturation [Mass Fracti on] in Serum or PlasmaOrdered By: Angel Mejía on 12-25-2021 Iron saturation [Mass fraction] 22.0 % 20-50 [facility] Ketones Auto test strip (U) [Mass/Vol]Ordered By: Angel Mejía on 12-25-2021 Ketones (U) [Mass/Vol] Negative Negative [facility] Laboratory - Chemistry and C hemistry - challengeOrdered By: Angel Mejía on 12-25-2021 Cobalamin (Vitamin B12) [Mass/Vol] 968 pg/mL 180-914 [facility] Magnesium [Mass/Vol] 2.1 mg/dL 1.6-2.6 [facility] Laboratory - CoagulationOrde red By: Angel Mejía on 12-25-2021 PT Coag (PPP) [Time] 11.6 s 9.0-12.9 [facility] Laboratory - UrinalysisOrder ed By: Angel Mejía on 12-25-2021 Hyaline casts LM Ql (Urine sed) 0-8 [LPF] 0-8 [facility] MCH Auto (RBC) [Entitic mass ]Ordered By: Angel Mejía on 12-25-2021 MCH (RBC) [Entitic mass] 29.8 pg 27.5-35.2 [facility] MCHC Auto (RBC) [Mass/Vol]Or dered By: Angel Mejía on 12-25-2021 MCHC (RBC) [Mass/Vol] 35.1 g/dL 32.5-35.6 [facility] MCV Auto (RBC) [Entitic vol] Ordered By: Angel Mejía on 12-25-2021 MCV (RBC) [Entitic vol] 84.8 fL 83.5-101 [facility] Nitrite Test strip Ql (U)Ord ered By: Angel Mejía on 12-25-2021 Nitrite Ql (U) Negative Negative [facility] No Panel InformationOrdered By: Angel Mejía on 12-25-2021 25-Hydroxy Vitamin D Total < 7.0 ng/mL 30-100 [facility] Comment on above: VITAMIN D STATUS 25( [place])VITAMIN D RANGE (ng/mL) Deficient <20 Insufficient 20 to <30 Sufficient 30 to 100 Reference: Vanna MF,Chemo NC, Sergey SIMENTAL, et al. Evaluation,treatment, and prevention of vitamin D deficiency; an Endocrine Society clinical practice guideline. JCEM. 2010; 96(7):1911-30. Estimated GFR () 45 mL/Min [facility] Comment on above: GFR estimated refere nce range: According to KDOQI guidelines, <60 ml/min/1.73m2 is sufficient to diagnose a patient with chronic kidney disease. Pharmacy Creatinine Clearance (Chem N/A [facility] Protein Electrophoresis [place] Not observed g/dL Not Observed [facility] Protein Electrophoresis Note See comment . [facility] Comment on above: Protein electrophore sis scan will follow via computer, mail, or neon electrician delivery. Performed at: - [facility] [id number] [employer] Forming: Pablito Alexander PhD, Phone: [phone] Serum Immunofixation Comment: . [facility] Comment on above: Presence of monoclon al protein is unclear at this time. Suggest repeat in 3 to 6 months if clinically indicated. Urine Random Prot Electrophor Note See comment . [facility] Comment on above: Protein electrophore sis scan will follow via computer, mail, or neon electrician delivery. Phosphate [Mass/volume] in S gretta or PlasmaOrdered By: Angel Mejía on 12-25-2021 Phosphate [Mass/Vol] 4.6 mg/dL 2.5-4.6 [facility] Platelet mean volume Auto (B ld) [Entitic vol]Ordered By: Angel Mejía on 12-25-2021 Platelet mean volume (Bld) [Entitic vol] 8.9 fL 6.6-10.1 [facility] Platelet poor plasma interna tional normalized ratio (INR) by coagulation assay (relatOrdered By: Angel Mejía on 12-25-2021 INR Coag (PPP) [Relative time] 1.0 {INR} [facility] Comment on above: INR Therapeutic Rang e [...] 12-25-2021 Platelets (Bld) [#/Vol] 280 10*3/uL 150-450 [facility] Protein Auto test strip (U) [Mass/Vol]Ordered By: Angel Mejía on 12-25-2021 Protein (U) [Mass/Vol] mg/dL Negative [facility] Protein [Mass/volume] in Ser um or PlasmaOrdered By: Angel Mejía on 12-25-2021 Protein [Mass/Vol] 5.5 g/dL 6.0-8.5 [facility] Protein [Mass/volume] in Uri neOrdered By: Angel Mejía on 12-25-2021 Protein (U) [Mass/Vol] 710.3 mg/dL Not Estab. F [facility] Comment on above: Results confirmed on dilution. Protein.monoclonal/Protein.t otal in 24 hour Urine by ElectrophoresisOrdered By: Angel Mejía on 12-25-2021 Protein.monoclonal Elph (24H U) [Mass fraction] Comment: % Not Observed [facility] Comment on above: ASYMMETRICAL GAMMA RBC Auto (Bld) [#/Vol]Ordere d By: Angel Mejía on 12-25-2021 RBC (Bld) [#/Vol] 3.55 10*6/uL 3.90-5.60 [facility] Serum globulin measurement ( mass/volume)Ordered By: Angel Mejía on 12-25-2021 Globulin (S) [Mass/Vol] 3.2 g/dL 2.2-3.9 [facility] Serum or plasma albumin/glob ulin mass ratioOrdered By: Angel Mejía on 12-25-2021 Albumin/Globulin [Mass ratio] 0.7 {ratio} 0.7-1.7 [facility] Serum or plasma alpha 1 glob ulin measurement by electrophoresis (mass/volume)Ordered By: Angel Mejía on 12-25-2021 Alpha 1 globulin Elph [Mass/Vol] 0.2 g/dL 0.0-0.4 [facility] Serum or plasma alpha 2 glob ulin measurement by electrophoresis (mass/volume)Ordered By: Angel Mejía on 12-25-2021 Alpha 2 globulin Elph [Mass/Vol] 1.2 g/dL 0.4-1.0 [facility] Serum or plasma beta globuli n measurement by electrophoresis (mass/volume)Ordered By: nAgel Mejía on 12-25-2021 Beta globulin Elph [Mass/Vol] 0.9 g/dL 0.7-1.3 [facility] Serum or plasma calcium farida urement (mass/volume)Ordered By: Angel Mejía on 12-25-2021 Calcium [Mass/Vol] 8.3 mg/dL 8.2-10.2 [facility] Serum or plasma chloride trina surement (moles/volume)Ordered By: Angel Mejía on 12-25-2021 Chloride [Moles/Vol] 97 mmol/L 95-114 [facility] Serum or plasma gamma globul in measurement by electrophoresis (mass/volume)Ordered By: Angel Mejía on 12-25-2021 Gamma globulin Elph [Mass/Vol] 0.9 g/dL 0.4-1.8 [facility] Serum or plasma glucose farida urement (mass/volume)Ordered By: Angel Mejía on 12-25-2021 Glucose [Mass/Vol] 392 mg/dL 70-100 [facility] Comment on above: ADA recommended refe rence range Random Glucose Reference Range is dependent on time and content of last meal. Glucose of more than 200 mg/dL in a nonstressed, ambulatory subject supports the diagnosis of Diabetes Mellitus. Serum or plasma intact parat hyroid hormone measurement (mass/volume)Ordered By: Angel Mejía on 12-25-2021 Parathyrin.intact [Mass/Vol] 147.3 pg/mL 12 [facility] Serum or plasma potassium me asurement (moles/volume)Ordered By: Angel Mejía on 12-25-2021 Potassium [Moles/Vol] 4.2 mmol/L 3.5-5.1 [facility] Serum or plasma sodium measu rement (moles/volume)Ordered By: Angel Mejía on 12-25-2021 Sodium [Moles/Vol] 130 mmol/L 136-146 [facility] Serum or plasma total carbon dioxide measurement (moles/volume)Ordered By: Angel Mejía on 12-25-2021 CO2 [Moles/Vol] 24.4 mmol/L 22.0-30.0 [facility] Serum or plasma urea nitroge n measurement (mass/volume)Ordered By: Angel Mejía on 12-25-2021 Urea nitrogen [Mass/Vol] 35 mg/dL 9-23 [facility] Specific gravity Auto test s trip (U) [Rel density]Ordered By: Angel Mejía on 12-25-2021 Specific gravity (U) [Rel density] 1.026 1.001-1.03 0 [facility] Squamous epithelial cells de tection in urine sediment by light microscopyOrdered By: Angel Mejía on 12-25-2021 Epithelial cells.squamous LM Ql (Urine sed) 1-2 [HPF] 0-2 [facility] Urine alpha 1 globulin/total protein by electrophoresisOrdered By: Angel Mejía on 12-25-2021 Alpha 1 globulin Elph (U) [Mass fraction] 7.4 % . [facility] Urine alpha 2 globulin/total protein ratio by electrophoresisOrdered By: Angel Mejía on 12-25-2021 Alpha 2 globulin Elph (U) [Mass fraction] 6.8 % . [facility] Urine bacteria detection by automated methodOrdered By: Angel Mejía on 12-25-2021 Bacteria Auto Ql (U) None seen None Seen [facility] Urine beta globulin measurem ent by electrophoresis (mass/volume)Ordered By: Angel Mejía on 12-25-2021 Beta globulin Elph (U) [Mass/Vol] 11.0 % . [facility] Urine clarity by refractomet ry automatedOrdered By: Angel Mejía on 12-25-2021 Clarity Refractometry automated (U) Clear Clear [facility] Urine glucose measurement by automated test strip (mass/volume)Ordered By: Angel Mejía on 12-25-2021 Glucose Auto test strip (U) [Mass/Vol] >=1000 mg/dL Normal [facility] Urine hemoglobin detection b y automated test stripOrdered By: Angel Mejía on 12-25-2021 Hemoglobin Auto test strip Ql (U) 1+ Negative [facility] Urine leukocyte esterase det ection by automated test stripOrdered By: Angel Mejía on 12-25-2021 Leukocyte esterase Auto test strip Ql (U) Negative Negative [facility] Urobilinogen Auto test strip (U) [Mass/Vol]Ordered By: Angel Mejía on 12-25-2021 Urobilinogen (U) [Mass/Vol] Normal mg/dL Normal [facility] WBC Auto (Bld) [#/Vol]Ordere d By: Angel Mejía on 12-25-2021 WBC (Bld) [#/Vol] 8.1 10*3/uL 4.1-10.5 [facility] pH Auto test strip (U)Ordere d By: Angel Mejía on 12-25-2021 pH (U) 5.5 [pH] 5.0-9.0 [facility] Tobacco Screening.on 022 Adult depression screening assessment No -[facility]-[employer] marianne 250 DO Work Phone: Tobacco use status [facility]PHS a) Yes M P-[facility] [employer] DO Work Phone: Tobacco Screening. Yes MP-[facility] [employer] DO Work Phone: MARYAM EIA W/REFLEX 5 BIOMARKER Son 10-24-2021 MARYAM Direct Positive Abnormal Negative [facility] Comment on above: Performed By: #### A NARF #### [facility] [address] [address] [address] Sonam Godinez Anti-DNA (DS) Ab Qn 1 IU/mL Normal 0-9 [facility] Comment on above: Result Comment: Nega tive <5 Equivocal 5 - 9 Positive >9 Performed By: #### A NARF #### [facility] [address] [address] [address] Sonam Godinez APRICOT WASHER Antibodies 1.4 AI Critically high 0.0-0.9 [facility] Comment on above: Performed By: #### A NARF #### [facility] [address] [address] [address] Sonam Godinez SEE BELOW: Comment Normal [facility] Comment on above: Result Comment: Auto [...] Sm (anti-Anderson) SLE 15 - 30% --------- APRICOT WASHER Mixed Connective Tissue Disease 95% (U1 nRNP, SLE 30 - 50% anti-ribonucleoprotein) Polymyositis and/or Dermatomyositis 20% --------- Scl-70 (antiDNA Scleroderma (diffuse) 20 - 35% topoisomerase) Crest 13% --------- Cony-1 Polymyositis and/or Dermatomyositis 20 - 40% --------- Centromere B Scleroderma - Crest variant 80% Performed By: #### A NARF #### [facility] [address] [place] [address] Dr. Sonam Godinez Sjogren's Anti-SS-A <0.2 Normal 0.0-0.9 [facility] Comment on above: Performed By: #### A NARF #### [facility] [address] [place] [address] Dr. Sonam Godinez Sjogrnirmala's Anti-SS-B <0.2 Normal 0.0-0.9 [facility] Comment on above: Performed By: #### A NARF #### [facility] [address] [place] [address] Dr. Sonam Godinez Anderson Antibodies <0.2 Normal 0.0-0.9 [facility] Comment on above: Performed By: #### A NARF #### [facility] [address] [place] [address] Dr. Sonam Godinez ALBUMINon 10-23-2021 Albumin [Mass/Vol] 1.8 g/dL Critically low 3.5-5.0 Th e [facility] Comment on above: Performed By: #### A LB, LIPID, DLDL, BMP #### [facility] [address] [place] [address] Dr. Sonam Godinez DIRECT LDLon 10-23-2021 Cholesterol in LDL [Mass/Vol] 164 mg/dL Normal [facility] Comment on above: Performed By: #### A LB, LIPID, DLDL, BMP #### [facility] [address] [place] [address] Dr. Sonam Godinez DLDL NORMAL SEE BELOW Normal [facility] Comment on above: Result Comment: <100 mg/dl OPTIMAL 100 - 129 mg/dl NEAR OR ABOVE OPTIMAL 130 - 159 mg/dl BORDERLINE HIGH 160 - 189 mg/dl HIGH >190 mg/dl VERY HIGH Performed By: #### A LB, LIPID, DLDL, BMP #### [facility] [address] [place] [address] Dr. Sonam Godinez GLYCOHEMOGLOBIN A1Con 2021 ADA RECOMMENDATION ADA THERAPEUTIC TARG ET 6.0 - 7.0 ACTION SUGGESTED > 7.0 Normal [facility] Comment on above: Performed By: #### A 1C #### [facility] [address] [place] [address] Dr. Sonam Godinez Glucose [Mass/Vol] 157 mg/dL Normal [facility] Comment on above: Performed By: #### A 1C #### [facility] [address] [place] [address] Dr. Sonam Godinez HbA1c (Bld) [Mass fraction] 7.1 % Critically high <=6.0 [facility] Comment on above: Performed By: #### A 1C #### [facility] [address] [place] [address] Dr. Sonam Godinez LIPID PROFILEon 10-23-2021 CHOL-HDL RATIO NORM SEE BELOW Normal [facility] Comment on above: Result Comment: 3.3 - 4.4 LOW RISK 4.4 - 7.1 AVERAGE RISK 7.1 - 11.0 MODERATE RISK >11.0 HIGH RISK Performed By: #### A LB, LIPID, DLDL, BMP #### [facility] [address] [place] [address] Dr. Sonam Godinez Cholesterol [Mass/Vol] 312 mg/dL Critically high <=200 [facility] Comment on above: Performed By: #### A LB, LIPID, DLDL, BMP #### [facility] [address] [place] [address] Dr. Sonam Godinez Cholesterol in HDL [Mass/Vol] 40 mg/dL Normal [facility] Comment on above: Performed By: #### A LB, LIPID, DLDL, BMP #### [facility] [address] [place] [address] Dr. Sonam Godinez Cholesterol.total/Rosalind sterol in HDL [Mass ratio] 7.8 {ratio} Normal [facility] Comment on above: Performed By: #### A LB, LIPID, DLDL, BMP #### [facility] [address] [address] [address] Sonam Godinez HDL NORMAL > or = 60 mg/dl - LO W CARDIOVASCULAR RISK <40 mg/dl - HIGH CARDIOVASCULAR RISK Normal [facility] Comment on above: Performed By: #### A LB, LIPID, DLDL, BMP #### [facility] [address] [address] [address] Sonam Godinez LDL CALC NORMAL SEE BELOW Normal [facility] Comment on above: Result Comment: <100 mg/dl OPTIMAL 100 - 129 mg/dl NEAR OR ABOVE OPTIMAL 130 - 159 mg/dl BORDERLINE HIGH 160 - 189 mg/dl HIGH >190 mg/dl VERY HIGH Performed By: #### A LB, LIPID, DLDL, BMP #### [facility] [address] [address] [address] Sonam Godinez Triglyceride [Mass/Vol] 494 mg/dL Critically high <=150 [facility] Comment on above: Performed By: #### A LB, LIPID, DLDL, BMP #### [facility] [address] [address] [address] Sonam Godinez PROF CHEM 8 (BAS METB)on Anion gap [Moles/Vol] 8.8 mmol/L Normal [facility] Comment on above: Performed By: #### A LB, LIPID, DLDL, BMP #### [facility] [address] [address] [address] Sonam Godinez Calcium [Mass/Vol] 7.8 mg/dL Critically low 8.4-10.2 Th e [facility] Comment on above: Performed By: #### A LB, LIPID, DLDL, BMP #### [facility] [address] [place] [address] Dr. Sonam Godinez Chloride [Moles/Vol] 101 mmol/L Normal 98-107 [facility] Comment on above: Performed By: #### A LB, LIPID, DLDL, BMP #### [facility] [address] [place] [address] Dr. Sonam Godinez CO2 [Moles/Vol] 27.1 mmol/L Normal 22.0-30.0 [facility] Comment on above: Performed By: #### A LB, LIPID, DLDL, BMP #### [facility] [address] [place] [address] Dr. Sonam Godinez Creatinine [Mass/Vol] 1.66 mg/dL Critically high 0.66-1.25 [facility] Comment on above: Performed By: #### A LB, LIPID, DLDL, BMP #### [facility] [address] [place] [address] Dr. Sonam Godinez EGFR-AF GUAMANIAN 57 mL/min/1.73m2 Critically low >=60 [facility] Comment on above: Performed By: #### A LB, LIPID, DLDL, BMP #### [facility] [address] [place] [address] Dr. Sonam Godinez EGFR-NON AF GUAMANIAN 47 mL/min/1.73m2 Critically low >=60 [facility] Comment on above: Performed By: #### A LB, LIPID, DLDL, BMP #### [facility] [address] [place] [address] Dr. Sonam Godinez Glucose [Mass/Vol] 240 mg/dL Critically high 74-106 [facility] Comment on above: Performed By: #### A LB, LIPID, DLDL, BMP #### [facility] [address] [place] [address] Dr. Sonam Godinez Potassium [Moles/Vol] 3.9 mmol/L Normal 3.4-5.0 [facility] Comment on above: Performed By: #### A LB, LIPID, DLDL, BMP #### [facility] [address] [place] [address] Dr. Sonam Godinez Sodium [Moles/Vol] 133 mmol/L Critically low 137-145 Th [facility] Comment on above: Performed By: #### A LB, LIPID, DLDL, BMP #### [facility] [address] [place] [address] Dr. Sonam Godinez Urea nitrogen [Mass/Vol] 37.0 mg/dL Critically high 9.0-20.0 [facility] Comment on above: Performed By: #### A LB, LIPID, DLDL, BMP #### [facility] [address] [address] [address] Sonam Godinez Urea nitrogen/Creatinine [Mass ratio] 22.3 mg/mg Normal [facility] Comment on above: Performed By: #### A LB, LIPID, DLDL, BMP #### [facility] [address] [place] [address] Dr. Sonam Godinez URINE T PROTEIN CREAT RATIOo n 10-23-2021 UR TOTAL PROTEIN >200.0 Critically high <=12.0 [facility] Comment on above: Performed By: #### U RTPCR #### [facility] [address] [place] [address] Dr. Sonam Godinez URINE CREAT 52.73 mg/dL Normal 20.00-300. 00 [facility] Comment on above: Performed By: #### U RTPCR #### [facility] [address] [place] [address] Dr. Sonam Godinez US KIDNEYS BLADDERon 022 US KIDNEYS BLADDER EXAMINATION: [facility] BLADDER HISTORY: Renal disorder associated with type [...] by: JEREL MEJIA Date: 2021-10-23 11:27 Normal [facility] ED NOTEon 10-01-2021 ED NOTE HNO ID: [id number] Author: Gerald Ellington MD Service: Emergency Medicine Author Type: Resident Type: ED Notes Filed: 10/01/2021 6:37 PM Note Text: CM for AM 23M sent from [facility] for ophtho c/s for elevated L IOP (50s). Has retinal detachment s/p surgical management, has macular degeneration. Elevated IOP here. Given drops for increased IOP prior to arrival. To do: [ ] Ophtho recs ED Course as of 10/01/211835 Gerald Ellington's Documentation Sun Oct 01, [address] Tristan from [facility], patient has improved IOP (27 in ED). Recommend DC on drops Timolol BID, the other two should be TID [facility] ophtho f/u at 1230 ([address] [facility], [facility]) Others' Documentation Sun Oct 01, 2021 0707 GLUCOSE, [...] Gerald Ellington MD Emergency Medicine Resident 10/01/21 [facility] ED PROV NOTEon 10-01-2021 ED PROV NOTE HNO ID: [id number] Author: Anum Tristan MD Service: Ophthalmology Author [...] 7:56 AM -- OPHTHALMOLOGY CONSULTATION REPORT Yoel Lipscombjose [id number] October 01, 2021 7:14 AM REASON FOR [...] not flat on back - F/u in [place] with Dr. Clarke Allen tomorrow at 12:30 - ophthalmology will arrange appointment 2. Proliferative diabetic retinopathy, both eyes - Managed by Dr. Gonzales in [place]; next f/u appointment Saturday, 09/05 per patient Case discussed with glaucoma fellow Dr. Cherry and retina staff Dr. Aguilar. HPI This is a 36 year old male who [facility], left eye, in the setting of recent retina surgery. The patient has a history of proliferative diabetic retinopathy with chronic TRD, left eye, for which he underwent retina surgery on 09/18/21 (vitrectomy + buckle with SO fill per patient, records not available for review, buckle not seen on exam) with Dr. Jerel Gonzales of [facility] (pt saw him in [place], [place]). The patient was doing well at his POD1 visit but has not followed up since due to being dx with SHALONDA around the time of surgery. His next f/u visit is scheduled for this Saturday, 10/06. He was initially on PF and an unknown abx drop, both QID, in the operative eye, but he has been off all gtts since Saturday. The patient reports that, over the past day and a half, he developed severe, throbbing left periocular pain, which prompted his visit to [facility] ED, where he was found to have IOP in the mid-50s. The [facility] ED was unable to get in contact [...] was made to transfer the [facility] for further assessment and management. CT at [facility] was remarkable only for vitreous opacities, c/w exam. The patient has a history of intravitreal injections (uncertain agent, presumably anti-VEGF) with his previous retina specialist in [place] and, most recently, received anti-VEGF injections OU [...] +2 Tonometr (more content not included)... Normal [facility] ED PROV NOTE HNO ID: [id number] Author: Govind Us MD Service: Emergency Medicine Author Type: [...] DMII and macular degeneration. He is from [place]; recently moved back to [place] in [facility]. About a month ago had outpatient ophthalmology evaluation and was found to have left retinal detachment. He had surgery for left eye retinal detachment on 09/17/2021. States yesterday he developed severe left eye pain. he tried using his eye drops at home for elevated pressures w/out improvement. Went to [facility] ED- found to have elevated IOP. Patient reports left eye pressures were elevated near 50. He received PO meds and ophthalmologic drops, and was sent to [facility] for optho consult. He reports minimal vision [...] Temp Temp src Resp SpO2 Weight Height 10/01/2134 10/01/2130 10/01/2134 10/01/2134 10/01/2134 10/01/21529 -- -- 180/87 71 37.1 ?C [...] patient an (more content not included)... Normal [facility] Vital Signs Date Time Vital Sign Value Performing Clinician Facility 01-09-2024 09:35-0400 Body height 185.42 cm DO Rolando Ball Work Phone: [facility] 01-09-2024 09:35-0400 Body temperature 97.8 [degF] DO Rolando Ball Work Phone: [facility] 01-09-2024 09:35-0400 Diastolic blood pressure 78 mm[Hg] DO Rolando Ball Work Phone: [facility] 01-09-2024 09:35-0400 Heart rate 76 /min DO Rolando Ball Work Phone: [facility] 01-09-2024 09:35-0400 Respiratory rate 16 /min DO Rolando Ball Work Phone: [facility] 01-09-2024 09:35-0400 SaO2% (BldA) [Mass fraction] 97 % DO Rolando Ball Work Phone: [facility] 01-09-2024 09:35-0400 Systolic blood pressure 122 mm[Hg] DO Rolando Ball Work Phone: [facility] 12-03-2023 15:31-0400 Body height 182.9 cm Elder Gomez DO Work Phone: [facility] 12-03-2023 15:31-0400 Body mass index (BMI) [Ratio] 22.92 kg/m2 Elder Gomez DO Work Phone: [facility] 12-03-2023 15:31-0400 Body weight 76.66 kg Elder Gomez DO Work Phone: [facility] 12-03-2023 15:31-0400 Diastolic blood pressure 90 mm[Hg] Elder Gomez DO Work Phone: [facility] 12-03-2023 15:31-0400 Heart rate 76 /min Elder Gomez DO Work Phone: [facility] 12-03-2023 15:31-0400 Systolic blood pressure 156 mm[Hg] Elder Gomez DO Work Phone: [facility] 11-26-2023 12:52-0400 Diastolic blood pressure 51 mm[Hg] DO Rolando Ball Work Phone: [facility] 11-26-2023 12:52-0400 Heart rate 62 /min DO Rolando Ball Work Phone: [facility] 11-26-2023 12:52-0400 Respiratory rate 14 /min DO Rolando Ball Work Phone: [facility] 11-26-2023 12:52-0400 SaO2% (BldA) [Mass fraction] 95 % DO Rolando Ball Work Phone: [facility] 11-26-2023 12:52-0400 Systolic blood pressure 103 mm[Hg] DO Rolando Ball Work Phone: [facility] 11-26-2023 11:52-0400 Inhaled oxygen flow rate 6 L/min DO Rolando Ball Work Phone: [facility] 11-26-2023 08:50-0400 Body mass index (BMI) [Ratio] 22.1 kg/m2 DO Rolando Ball Work Phone: [facility] 11-26-2023 08:42-0400 Body height 185.42 cm DO Rolando Ball Work Phone: [facility] 11-26-2023 08:42-0400 Body temperature 97.8 [degF] DO Rolando Ball Work Phone: [facility] 11-26-2023 08:42-0400 Body weight 71.5 kg DO Rolando Ball Work Phone: [facility] 11-14-2023 14:43-0400 Body height 185.42 cm DO Rolando Ball Work Phone: [facility] 11-14-2023 14:43-0400 Body mass index (BMI) [Ratio] 21.2 kg/m2 DO Rolando Ball Work Phone: [facility] 11-14-2023 14:43-0400 Body weight 73.14 kg DO Rolando Ball Work Phone: [facility] 11-14-2023 14:43-0400 Diastolic blood pressure 81 mm[Hg] DO Rolando Ball Work Phone: [facility] 11-14-2023 14:43-0400 Heart rate 73 /min DO Rolando Ball Work Phone: [facility] 11-14-2023 14:43-0400 Respiratory rate 12 /min DO Rolando Ball Work Phone: [facility] 11-14-2023 14:43-0400 Systolic blood pressure 174 mm[Hg] DO Rolando Ball Work Phone: [facility] 10-31-2023 08:40-0400 Diastolic blood pressure 72 mm[Hg] DO Rolando Ball Work Phone: [facility] 10-31-2023 08:40-0400 Heart rate 67 /min DO Rolando Ball Work Phone: [facility] 10-31-2023 08:40-0400 Respiratory rate 18 /min DO Rolando Ball Work Phone: [facility] 10-31-2023 08:40-0400 SaO2% (BldA) [Mass fraction] 99 % DO Rolando Ball Work Phone: [facility] 10-31-2023 08:40-0400 Systolic blood pressure 170 mm[Hg] DO Rolando Ball Work Phone: [facility] 10-31-2023 08:16-0400 Body height 185.42 cm DO Roladno Ball Work Phone: [facility] 10-31-2023 08:16-0400 Body weight 72.57 kg DO Rolando Ball Work Phone: [facility] 10-17-2023 10:57-0500 Body height 185.42 cm DO Rolando Ball Work Phone: [facility] 10-17-2023 10:57-0500 Body mass index (BMI) [Ratio] 20.7 kg/m2 DO Rolando Ball Work Phone: [facility] 10-17-2023 10:57-0500 Body temperature 97.6 [degF] DO Rolando Ball Work Phone: [facility] 10-17-2023 10:57-0500 Body weight 71.21 kg DO Rolando Ball Work Phone: [facility] 10-17-2023 10:57-0500 Diastolic blood pressure 68 mm[Hg] DO Rolando Ball Work Phone: [facility] 10-17-2023 10:57-0500 Heart rate 82 /min DO Rolando Ball Work Phone: [facility] 10-17-2023 10:57-0500 Respiratory rate 16 /min DO Rolando Ball Work Phone: [facility] 10-17-2023 10:57-0500 SaO2% (BldA) [Mass fraction] 98 % DO Rolando Ball Work Phone: [facility] 10-17-2023 10:57-0500 Systolic blood pressure 116 mm[Hg] DO Rolando Ball Work Phone: [facility] 10-17-2023 08:39-0500 Body height 185.42 cm DO Rolando Ball Work Phone: [facility] 10-17-2023 08:39-0500 Body mass index (BMI) [Ratio] 20.7 kg/m2 DO Rolando Ball Work Phone: [facility] 10-17-2023 08:39-0500 Body temperature 98.4 [degF] DO Rolando Ball Work Phone: [facility] 10-17-2023 08:39-0500 Body weight 71.21 kg DO Rolnado Ball Work Phone: [facility] 10-17-2023 08:39-0500 Diastolic blood pressure 63 mm[Hg] DO Rolando Ball Work Phone: [facility] 10-17-2023 08:39-0500 Systolic blood pressure 117 mm[Hg] DO Rolando Ball Work Phone: [facility] 10-02-2023 11:26-0500 Heart rate 70 /min DO Rolando Ball Work Phone: [facility] 10-02-2023 11:08-0500 Respiratory rate 18 /min DO Rolando Ball Work Phone: [facility] 10-02-2023 11:08-0500 SaO2% (BldA) [Mass fraction] 98 % DO Rolando Ball Work Phone: [facility] 10-02-2023 10:04-0500 Body height 185.42 cm DO Rolando Ball Work Phone: [facility] 10-02-2023 10:04-0500 Body weight 74 kg DO Rolando Ball Work Phone: [facility] 10-02-2023 10:03-0500 Body temperature 97.8 [degF] DO Rolando Ball Work Phone: [facility] 10-02-2023 10:03-0500 Diastolic blood pressure 73 mm[Hg] DO Rolando Ball Work Phone: [facility] 10-02-2023 10:03-0500 Systolic blood pressure 139 mm[Hg] DO Rolando Ball Work Phone: [facility] 10-01-2023 10:46-0500 Body temperature 98 [degF] DO Rolando Ball Work Phone: [facility] 10-01-2023 10:46-0500 Body weight 73.93 kg DO Rolando Ball Work Phone: [facility] 10-01-2023 10:46-0500 Diastolic blood pressure 90 mm[Hg] DO Rolando Ball Work Phone: [facility] 10-01-2023 10:46-0500 Heart rate 798 /min DO Rolando Ball Work Phone: [facility] 10-01-2023 10:46-0500 Respiratory rate 18 /min DO Rolando Ball Work Phone: [facility] 10-01-2023 10:46-0500 SaO2% (BldA) [Mass fraction] 98 % DO Rolando Ball Work Phone: [facility] 10-01-2023 10:46-0500 Systolic blood pressure 170 mm[Hg] DO Rolando Ball Work Phone: [facility] 08-29-2023 09:00-0500 Body height 185.42 cm Romain Mnedoza Other [facility] 08-29-2023 09:00-0500 Body mass index (BMI) [Ratio] 20.58 kg/m2 Romain Mendoza Other [employer] [facility] [employer] Other 08-29-2023 09:00-0500 Body temperature 97.6 [degF] Romain Mendoza Other [facility] [employer] Other 08-29-2023 09:00-0500 Body weight 70.76 kg Romain Mendoza Other [facility] 08-29-2023 09:00-0500 Diastolic blood pressure 58 mm[Hg] Romain Florezkaley Other [facility] 08-29-2023 09:00-0500 SaO2% (BldA) [Mass fraction] 97 % Romain Florezkaley Other [facility] [employer] Other 08-29-2023 09:00-0500 Systolic blood pressure 84 mm[Hg] Romain Florezkaley Other [facility] 08-18-2023 14:00-0500 Body temperature 98 [degF] DO Rolando Ball Work Phone: [facility] 08-18-2023 14:00-0500 Diastolic blood pressure 80 mm[Hg] DO Rolando Ball Work Phone: [facility] 08-18-2023 14:00-0500 Heart rate 68 /min DO Rolando Ball Work Phone: [facility] 08-18-2023 14:00-0500 Respiratory rate 18 /min DO Rolando Ball Work Phone: [facility] 08-18-2023 14:00-0500 SaO2% (BldA) [Mass fraction] 95 % DO Rolando Ball Work Phone: [facility] 08-18-2023 14:00-0500 Systolic blood pressure 137 mm[Hg] DO Rolando Ball Work Phone: [facility] 08-18-2023 10:55-0500 Body height 182.88 cm DO Rolando Ball Work Phone: [facility] 08-18-2023 05:06-0500 Body weight 71.6 kg DO Rolando Ball Work Phone: [facility] 08-13-2023 10:15-0500 Body height 185.42 cm Rolando Ball Other [facility] 08-13-2023 10:15-0500 Body mass index (BMI) [Ratio] 20.92 kg/m2 Rolando Ball Other [facility] [employer] Other 08-13-2023 10:15-0500 Body weight 71.94 kg Rolando Ball Other [facility] [employer] Other 08-13-2023 10:15-0500 Body weight 71.93 kg DO Rolando Ball Work Phone: [facility] 08-13-2023 10:15-0500 Diastolic blood pressure 61 mm[Hg] Rolando Ball Other [facility] 08-13-2023 10:15-0500 Respiratory rate 12 /min Rolando Ball Other [facility] [employer] Other 08-13-2023 10:15-0500 Systolic blood pressure 94 mm[Hg] Rolando Ball Other [facility] 07-16-2023 09:30-0500 Body height 185.42 cm Rolando Ball Other [facility] 07-16-2023 09:30-0500 Body mass index (BMI) [Ratio] 20.98 kg/m2 Rolando Ball Other [facility] [employer] Other 07-16-2023 09:30-0500 Body weight 72.12 kg Rolando Ball Other [facility] 07-16-2023 09:30-0500 Diastolic blood pressure 75 mm[Hg] Rolando Ball Other [facility] 07-16-2023 09:30-0500 Respiratory rate 12 /min Rolando Ball Other [facility] [employer] Other 07-16-2023 09:30-0500 Systolic blood pressure 115 mm[Hg] Rolando Ball Other [facility] 07-04-2023 09:45-0500 Body height 185.42 cm Romain Mendoza Other [employer] Other 07-04-2023 09:45-0500 Body mass index (BMI) [Ratio] 21.11 kg/m2 Romain Florezkaley Other [employer] Other 07-04-2023 09:45-0500 Body temperature 97.8 [degF] Romain Reji Other [employer] Other 07-04-2023 09:45-0500 Body weight 72.58 kg Romain Reji Other [employer] Other 07-04-2023 09:45-0500 Diastolic blood pressure 72 mm[Hg] Romain Reji Other [employer] Other 07-04-2023 09:45-0500 SaO2% (BldA) [Mass fraction] 98 % Romain Reji Other [employer] Other 07-04-2023 09:45-0500 Systolic blood pressure 118 mm[Hg] Romain Reji Other [employer] Other 06-17-2023 13:55-0400 Diastolic blood pressure 87 mm[Hg] DO Rolando Ball Work Phone: [facility] 06-17-2023 13:55-0400 Heart rate 72 /min DO Rolando Ball Work Phone: [facility] 06-17-2023 13:55-0400 Respiratory rate 16 /min DO Rolando Ball Work Phone: [facility] 06-17-2023 13:55-0400 SaO2% (BldA) [Mass fraction] 99 % DO Rolando Ball Work Phone: [facility] 06-17-2023 13:55-0400 Systolic blood pressure 158 mm[Hg] DO Rolando Ball Work Phone: [facility] 06-17-2023 12:15-0400 Body height 185.42 cm DO Rolando Ball Work Phone: [facility] 06-17-2023 12:15-0400 Body weight 73.48 kg DO Rolando Ball Work Phone: [facility] 06-13-2023 09:30-0400 Body height 185.42 cm Zina Childs Other [employer] [facility] [employer] Other 06-13-2023 09:30-0400 Body mass index (BMI) [Ratio] 21.11 kg/m2 Zina Childs Other [employer] Other 06-13-2023 09:30-0400 Body temperature 97.6 [degF] Zina Childs Other [employer] Other 06-13-2023 09:30-0400 Body weight 72.58 kg Zina Childs Other [employer] Other 06-13-2023 09:30-0400 Diastolic blood pressure 72 mm[Hg] Zina Childs Other [employer] Other 06-13-2023 09:30-0400 SaO2% (BldA) [Mass fraction] 97 % Zina Childs Other [employer] Other 06-13-2023 09:30-0400 Systolic blood pressure 130 mm[Hg] Zina Childs Other [employer] Other 04-12-2023 09:40-0400 Diastolic blood pressure 81 mm[Hg] DO Rolando Ball Work Phone: [facility] 04-12-2023 09:40-0400 Heart rate 71 /min DO Rolando Ball Work Phone: [facility] 04-12-2023 09:40-0400 Respiratory rate 16 /min DO Rolando Ball Work Phone: [facility] 04-12-2023 09:40-0400 SaO2% (BldA) [Mass fraction] 98 % DO Rolando Ball Work Phone: [facility] 04-12-2023 09:40-0400 Systolic blood pressure 175 mm[Hg] DO Rolando Ball Work Phone: [facility] 04-12-2023 07:41-0400 Body height 182.88 cm DO Rolando Ball Work Phone: [facility] 04-12-2023 07:41-0400 Body weight 72.57 kg DO Rolando Ball Work Phone: [facility] 04-10-2023 10:00-0400 Body height 185.42 cm Romain Mendoza Other [employer] Other 04-10-2023 10:00-0400 Body mass index (BMI) [Ratio] 21.5 kg/m2 Romain Mendoza Other [employer] Other 04-10-2023 10:00-0400 Body temperature 97.6 [degF] Romain Mendoza Other [employer] Other 04-10-2023 10:00-0400 Body weight 73.94 kg Romain Mendoza Other [employer] Other 04-10-2023 10:00-0400 Diastolic blood pressure 86 mm[Hg] Romain Mendoza Other [employer] Other 04-10-2023 10:00-0400 SaO2% (BldA) [Mass fraction] 96 % Romain Mendoza Other [employer] Other 04-10-2023 10:00-0400 Systolic blood pressure 128 mm[Hg] Romain Mendoza Other [employer] Other 03-26-2023 08:38-0400 Body height 182.88 cm DO Rolando Ball Work Phone: [facility] 03-26-2023 08:38-0400 Body temperature 97.7 [degF] DO Rolando Ball Work Phone: [facility] 03-26-2023 08:38-0400 Body weight 76.06 kg DO Rolando Ball Work Phone: [facility] 03-26-2023 08:38-0400 Diastolic blood pressure 84 mm[Hg] DO Rolando Ball Work Phone: [facility] 03-26-2023 08:38-0400 Heart rate 75 /min DO Rolando Ball Work Phone: [facility] 03-26-2023 08:38-0400 Respiratory rate 20 /min DO Rolando Ball Work Phone: [facility] 03-26-2023 08:38-0400 SaO2% (BldA) [Mass fraction] 100 % DO Rolando Ball Work Phone: [facility] 03-26-2023 08:38-0400 Systolic blood pressure 169 mm[Hg] DO Rolando Ball Work Phone: [facility] 02-27-2023 15:00-0400 Body mass index (BMI) [Ratio] 21.5 kg/m2 Angel Kym Other [employer] Other 02-27-2023 15:00-0400 Body temperature 96.6 [degF] Angel Kym Other [employer] Other 02-27-2023 15:00-0400 Body weight 73.94 kg Angel Kym Other [employer] Other 02-27-2023 15:00-0400 Diastolic blood pressure 81 mm[Hg] Angel Kym Other [employer] Other 02-27-2023 15:00-0400 Respiratory rate 16 /min Angel Kym Other [employer] Other 02-27-2023 15:00-0400 SaO2% (BldA) [Mass fraction] 98 % Angel Kym Other [employer] Other 02-27-2023 15:00-0400 Systolic blood pressure 150 mm[Hg] Angel Kym Other [employer] Other 02-27-2023 10:00-0400 Body height 185.42 cm Zina Childs Other [employer] Other 02-27-2023 10:00-0400 Body mass index (BMI) [Ratio] 21.24 kg/m2 Zina Childs Other [employer] Other 02-27-2023 10:00-0400 Body temperature 97.3 [degF] Zina Childs Other [employer] Other 02-27-2023 10:00-0400 Body weight 73.03 kg Zina Childs Other [employer] Other 02-27-2023 10:00-0400 Diastolic blood pressure 62 mm[Hg] Zina Childs Other [facility] [employer] Other 02-27-2023 10:00-0400 SaO2% (BldA) [Mass fraction] 99 % Zina Childs Other [facility] [employer] Other 02-27-2023 10:00-0400 Systolic blood pressure 104 mm[Hg] Zina Childs Other [facility] [employer] Other 02-26-2023 09:21-0400 Body height 182.88 cm Rolando E Ball Work Phone: [facility] [employer] DO Work Phone: 02-26-2023 09:21-0400 Body mass index (BMI) [Ratio] 21.43 kg/m2 Rolando E Ball Work Phone: [facility] [employer] DO Work Phone: 02-26-2023 09:21-0400 Body surface area Derived from formula 1.93 m2 Rolando E Ball Work Phone: [facility] [employer] DO Work Phone: 02-26-2023 09:21-0400 Body weight 71.67 kg Rolando E Ball Work Phone: [facility] [employer] DO Work Phone: 02-26-2023 09:21-0400 Diastolic blood pressure 64 mm[Hg] Rolando E Ball Work Phone: [facility] [employer] DO Work Phone: 02-26-2023 09:21-0400 Heart rate 78 /min Rolando E Ball Work Phone: [facility] [employer] DO Work Phone: 02-26-2023 09:21-0400 Systolic blood pressure 148 mm[Hg] Rolando E Ball Work Phone: [facility] [facility] DO Work Phone: 02-11-2023 11:20-0400 Body height 185.42 cm Angel Kym Other [facility] [employer] Other 02-11-2023 11:20-0400 Body mass index (BMI) [Ratio] 22 kg/m2 Angel Kym Other [facility] [employer] Other 02-11-2023 11:20-0400 Body temperature 97.4 [degF] Angel Kym Other [facility] [employer] Other 02-11-2023 11:20-0400 Body weight 75.66 kg Angel Kym Other [facility] [employer] Other 02-11-2023 11:20-0400 Diastolic blood pressure 55 mm[Hg] Angel Kym Other [facility] [employer] Other 02-11-2023 11:20-0400 Respiratory rate 16 /min Angel Kym Other [facility] [employer] Other 02-11-2023 11:20-0400 SaO2% (BldA) [Mass fraction] 97 % Angel Kym Other [facility] [employer] Other 02-11-2023 11:20-0400 Systolic blood pressure 93 mm[Hg] Angel Kym Other [facility] [employer] Other 02-04-2023 22:30-0400 Diastolic blood pressure 76 mm[Hg] DO Rolando Ball Work Phone: [facility] 02-04-2023 22:30-0400 Heart rate 71 /min DO Rolando Ball Work Phone: [facility] 02-04-2023 22:30-0400 Respiratory rate 17 /min DO Rolando Ball Work Phone: [facility] 02-04-2023 22:30-0400 SaO2% (BldA) [Mass fraction] 99 % DO Rolando Ball Work Phone: [facility] 02-04-2023 22:30-0400 Systolic blood pressure 182 mm[Hg] DO Rolando Ball Work Phone: [facility] 02-04-2023 17:30-0400 Body temperature 97.9 [degF] DO Rolando Ball Work Phone: [facility] 02-04-2023 07:58-0400 Body height 185.42 cm DO Rolando Ball Work Phone: [facility] 02-04-2023 07:58-0400 Body weight 75 kg DO Rolando Ball Work Phone: [facility] 01-23-2023 11:15-0400 Body height 185.42 cm Romain Mendoza Other [employer] Other 01-23-2023 11:15-0400 Body mass index (BMI) [Ratio] 21.11 kg/m2 Romain Mendoza Other [employer] Other 01-23-2023 11:15-0400 Body temperature 98.1 [degF] Romain Mendoza Other [employer] Other 01-23-2023 11:15-0400 Body weight 72.58 kg Romain Mendoza Other [employer] Other 01-23-2023 11:15-0400 Diastolic blood pressure 80 mm[Hg] Romain Mendoza Other [employer] Other 01-23-2023 11:15-0400 SaO2% (BldA) [Mass fraction] 97 % Romain Mendoza Other [facility] [employer] Other 01-23-2023 11:15-0400 Systolic blood pressure 140 mm[Hg] Romain Mendoza Other [facility] [employer] Other 01-16-2023 10:04-0400 Body height 182.88 cm Rolando Arreguin Ball Work Phone: [facility] [employer] DO Work Phone: 01-16-2023 10:04-0400 Body mass index (BMI) [Ratio] 21.7 kg/m2 Rolando E Ball Work Phone: [facility] [employer] DO Work Phone: 01-16-2023 10:04-0400 Body surface area Derived from formula 1.94 m2 Rolando E Ball Work Phone: [facility] [employer] DO Work Phone: 01-16-2023 10:04-0400 Body weight 72.58 kg Rolando E Ball Work Phone: [facility] [employer] DO Work Phone: 01-16-2023 10:04-0400 Diastolic blood pressure 70 mm[Hg] Rolando Arreguin Ball Work Phone: [facility] [employer] DO Work Phone: 01-16-2023 10:04-0400 Heart rate 60 /min Rolando E Ball Work Phone: [facility] [employer] DO Work Phone: 01-16-2023 10:04-0400 Systolic blood pressure 142 mm[Hg] Rolando E Ball Work Phone: [facility] [employer] DO Work Phone: 01-09-2023 16:00-0400 Body temperature 97.9 [degF] DO Rolando Ball Work Phone: [facility] 01-09-2023 16:00-0400 Diastolic blood pressure 87 mm[Hg] DO Rolando Ball Work Phone: [facility] 01-09-2023 16:00-0400 Heart rate 71 /min DO Rolando Ball Work Phone: [facility] 01-09-2023 16:00-0400 Respiratory rate 18 /min DO Rolando Ball Work Phone: [facility] 01-09-2023 16:00-0400 SaO2% (BldA) [Mass fraction] 97 % DO Rolando Ball Work Phone: [facility] 01-09-2023 16:00-0400 Systolic blood pressure 174 mm[Hg] DO Rolando Ball Work Phone: [facility] 01-09-2023 15:38-0400 Body height 185.42 cm DO Rolando Ball Work Phone: [facility] 01-09-2023 02:36-0400 Body weight 75.6 kg DO Rolando Ball Work Phone: [facility] 12-25-2022 11:40-0400 Body height 185.42 cm DO Robyn Tupa Work Phone: [facility] 12-25-2022 11:40-0400 Body temperature 98 [degF] DO Robyn Tupa Work Phone: [facility] 12-25-2022 11:40-0400 Body weight 74.5 kg DO Robyn Tupa Work Phone: [facility] 12-25-2022 11:40-0400 Diastolic blood pressure 82 mm[Hg] DO Robyn Tupa Work Phone: [facility] 12-25-2022 11:40-0400 Heart rate 73 /min DO Robyn Tupa Work Phone: [facility] 12-25-2022 11:40-0400 Respiratory rate 20 /min DO Robyn Tupa Work Phone: [facility] 12-25-2022 11:40-0400 SaO2% (BldA) [Mass fraction] 100 % DO Robyn Tupa Work Phone: [facility] 12-25-2022 11:40-0400 Systolic blood pressure 192 mm[Hg] DO Robyn Tupa Work Phone: [facility] 12-18-2022 11:30-0400 Diastolic blood pressure 79 mm[Hg] DO Robyn Tupa Work Phone: [facility] 12-18-2022 11:30-0400 Heart rate 63 /min DO Robyn Tupa Work Phone: [facility] 12-18-2022 11:30-0400 Respiratory rate 16 /min DO Robyn Tupa Work Phone: [facility] 12-18-2022 11:30-0400 SaO2% (BldA) [Mass fraction] 97 % DO Robyn Tupa Work Phone: [facility] 12-18-2022 11:30-0400 Systolic blood pressure 129 mm[Hg] DO Robyn Tupa Work Phone: [facility] 12-18-2022 10:45-0400 Inhaled oxygen flow rate 8 L/min DO Robyn Tupa Work Phone: [facility] 12-18-2022 08:12-0400 Body weight 76.2 kg DO Robyn Tupa Work Phone: [facility] 12-18-2022 07:40-0400 Body height 185.42 cm DO Robyn Tupa Work Phone: [facility] 12-18-2022 07:40-0400 Body temperature 98 [degF] DO Robyn Tupa Work Phone: [facility] 12-11-2022 09:50-0400 Diastolic blood pressure 91 mm[Hg] DO Robyn Tupa Work Phone: [facility] 12-11-2022 09:50-0400 Heart rate 62 /min DO Robyn Tupa Work Phone: [facility] 12-11-2022 09:50-0400 Respiratory rate 16 /min DO Robyn Tupa Work Phone: [facility] 12-11-2022 09:50-0400 SaO2% (BldA) [Mass fraction] 100 % DO Robyn Tupa Work Phone: [facility] 12-11-2022 09:50-0400 Systolic blood pressure 174 mm[Hg] DO Robyn Tupa Work Phone: [facility] 12-11-2022 07:46-0400 Body height 185.42 cm DO Robyn Tupa Work Phone: [facility] 12-11-2022 07:46-0400 Body weight 74.84 kg DO Robyn Tupa Work Phone: [facility] 12-06-2022 15:20-0400 Body height 185.42 cm Angel Kym Other [employer] Other 12-06-2022 15:20-0400 Body mass index (BMI) [Ratio] 21.74 kg/m2 Angel Kym Other [employer] Other 12-06-2022 15:20-0400 Body temperature 97.3 [degF] Angel Kym Other [employer] Other 12-06-2022 15:20-0400 Body weight 74.75 kg Angel Kym Other [employer] Other 12-06-2022 15:20-0400 Diastolic blood pressure 82 mm[Hg] Angel Kym Other [facility] [employer] Other 12-06-2022 15:20-0400 Respiratory rate 16 /min Angel Kym Other [employer] Other 12-06-2022 15:20-0400 SaO2% (BldA) [Mass fraction] 96 % Angel Kym Other [facility] [employer] Other 12-06-2022 15:20-0400 Systolic blood pressure 163 mm[Hg] Angel Kym Other [facility] [employer] Other 12-04-2022 08:30-0400 Diastolic blood pressure 83 mm[Hg] DO Rolando Ball Work Phone: [facility] 12-04-2022 08:30-0400 Heart rate 66 /min DO Rolando Ball Work Phone: [facility] 12-04-2022 08:30-0400 Respiratory rate 14 /min DO Rolando Ball Work Phone: [facility] 12-04-2022 08:30-0400 SaO2% (BldA) [Mass fraction] 97 % DO Rolando Ball Work Phone: [facility] 12-04-2022 08:30-0400 Systolic blood pressure 170 mm[Hg] DO Rolando Ball Work Phone: [facility] 12-04-2022 07:01-0400 Body height 182.88 cm DO Rolando Ball Work Phone: [facility] 12-04-2022 07:01-0400 Body weight 77.11 kg DO Rolando Ball Work Phone: [facility] 11-28-2022 11:30-0400 Body height 185.42 cm Zina Childs Other [employer] Other 11-28-2022 11:30-0400 Body mass index (BMI) [Ratio] 22.16 kg/m2 Zina Childs Other [employer] Other 11-28-2022 11:30-0400 Body temperature 97.8 [degF] Zina Hanhomer Other [employer] Other 11-28-2022 11:30-0400 Body weight 76.2 kg Zina Hanjaironjojo Other [employer] Other 11-28-2022 11:30-0400 Diastolic blood pressure 58 mm[Hg] Zina Hanhomer Other [employer] Other 11-28-2022 11:30-0400 SaO2% (BldA) [Mass fraction] 97 % Zina Childs Other [employer] Other 11-28-2022 11:30-0400 Systolic blood pressure 102 mm[Hg] Zina Childs Other [employer] Other 11-19-2022 10:20-0400 Body height 185.42 cm Angel Kym Other [employer] Other 11-19-2022 10:20-0400 Body mass index (BMI) [Ratio] 22.22 kg/m2 Angel Kym Other [employer] Other 11-19-2022 10:20-0400 Body temperature 99.6 [degF] Angel Kym Other [employer] Other 11-19-2022 10:20-0400 Body weight 76.39 kg Angel Kym Other [employer] Other 11-19-2022 10:20-0400 Diastolic blood pressure 68 mm[Hg] Angel Kym Other [employer] Other 11-19-2022 10:20-0400 Respiratory rate 6 /min Angel Kym Other [employer] Other 11-19-2022 10:20-0400 SaO2% (BldA) [Mass fraction] 99 % Angel Kym Other [employer] Other 11-19-2022 10:20-0400 Systolic blood pressure 105 mm[Hg] Angel Kym Other [employer] Other 11-12-2022 09:12-0400 Body height 182.88 cm DO Rolando Ball Work Phone: [facility] 11-12-2022 09:12-0400 Body temperature 98.1 [degF] DO Rolando Ball Work Phone: [facility] 11-12-2022 09:12-0400 Body weight 73 kg DO Rolando Ball Work Phone: [facility] 11-12-2022 09:12-0400 Diastolic blood pressure 63 mm[Hg] DO Rolando Ball Work Phone: [facility] 11-12-2022 09:12-0400 Heart rate 67 /min DO Rolando Ball Work Phone: [facility] 11-12-2022 09:12-0400 Respiratory rate 16 /min DO Rolando Ball Work Phone: [facility] 11-12-2022 09:12-0400 SaO2% (BldA) [Mass fraction] 100 % DO Rolando Ball Work Phone: [facility] 11-12-2022 09:12-0400 Systolic blood pressure 106 mm[Hg] DO Rolando Ball Work Phone: [facility] 10-18-2022 10:22-0500 Body height 185.42 cm Rolando Arreguin Ball Work Phone: [facility] [employer] [employer] DO Work Phone: 10-18-2022 10:22-0500 Body mass index (BMI) [Ratio] 22.17 kg/m2 Rolando Arreguin Ball Work Phone: [facility] [employer] 250 DO Work Phone: 10-18-2022 10:22-0500 Body surface area Derived from formula 2 m2 Rolando Arreguin Ball Work Phone: [facility] [employer] 250 DO Work Phone: 10-18-2022 10:22-0500 Body weight 76.2 kg Rolando Arreguin Ball Work Phone: [facility] [employer] 250 DO Work Phone: 10-18-2022 10:22-0500 Diastolic blood pressure 76 mm[Hg] Rolando Arreguin Ball Work Phone: [facility] [employer] 250 DO Work Phone: 10-18-2022 10:22-0500 Heart rate 76 /min Rolando Arreguin Ball Work Phone: [facility] 250 DO Work Phone: 10-18-2022 10:22-0500 Systolic blood pressure 120 mm[Hg] Rolando Arreguin Ball Work Phone: [facility] 250 DO Work Phone: 10-16-2022 09:40-0500 Body height 185.42 cm Angel Mejía Other [place] [employer] Other 10-16-2022 09:40-0500 Body mass index (BMI) [Ratio] 22.19 kg/m2 Angel Kym Other [employer] Other 10-16-2022 09:40-0500 Body temperature 98.4 [degF] Angel Kym Other [employer] Other 10-16-2022 09:40-0500 Body weight 76.3 kg Angel Kym Other [employer] Other 10-16-2022 09:40-0500 Diastolic blood pressure 73 mm[Hg] Angel Kym Other [employer] Other 10-16-2022 09:40-0500 Respiratory rate 16 /min Angel Kym Other [employer] Other 10-16-2022 09:40-0500 SaO2% (BldA) [Mass fraction] 99 % Angel Kym Other [employer] Other 10-16-2022 09:40-0500 Systolic blood pressure 121 mm[Hg] Angel Kym Other [employer] Other 10-10-2022 10:30-0500 Body height 185.42 cm Zina Childs Other [employer] Other 10-10-2022 10:30-0500 Body mass index (BMI) [Ratio] 21.77 kg/m2 Zina Childs Other [employer] Other 10-10-2022 10:30-0500 Body temperature 97.8 [degF] Zina Childs Other [employer] Other 10-10-2022 10:30-0500 Body weight 74.84 kg Zina Childs Other [employer] Other 10-10-2022 10:30-0500 Diastolic blood pressure 62 mm[Hg] Zina Childs Other [employer] Other 10-10-2022 10:30-0500 SaO2% (BldA) [Mass fraction] 98 % Zina Childs Other [employer] Other 10-10-2022 10:30-0500 Systolic blood pressure 108 mm[Hg] Zina Childs Other [employer] Other 10-08-2022 10:15-0500 Body height 185.42 cm Rolando Ball Other [employer] Other 10-08-2022 10:15-0500 Body mass index (BMI) [Ratio] 21.85 kg/m2 Rolando Ball Other [employer] Other 10-08-2022 10:15-0500 Body weight 75.12 kg Rolando Ball Other [employer] Other 10-08-2022 10:15-0500 Diastolic blood pressure 70 mm[Hg] Rolando Ball Other [employer] Other 10-08-2022 10:15-0500 Respiratory rate 12 /min Rolando Ball Other [employer] Other 10-08-2022 10:15-0500 Systolic blood pressure 108 mm[Hg] Rolando Ball Other [employer] Other 10-03-2022 11:46-0500 Body temperature 97.9 [degF] DO Zeus Keister Work Phone: [facility] 10-03-2022 11:46-0500 Diastolic blood pressure 90 mm[Hg] DO Zeus Keister Work Phone: [facility] 10-03-2022 11:46-0500 Heart rate 77 /min DO Zeus Keister Work Phone: [facility] 10-03-2022 11:46-0500 Respiratory rate 16 /min DO Zeus Keister Work Phone: [facility] 10-03-2022 11:46-0500 SaO2% (BldA) [Mass fraction] 98 % DO Zeus Keister Work Phone: [facility] 10-03-2022 11:46-0500 Systolic blood pressure 171 mm[Hg] DO Zeus Keister Work Phone: [facility] 10-03-2022 09:41-0500 60 1 Rolando Arreguin Ball Work Phone: [facility] DO Work Phone: Comment on above: [id number] 10-03-2022 03:52-0500 Body height 185.42 cm DO Zeus Keister Work Phone: [facility] 10-03-2022 03:52-0500 Body weight 74.2 kg DO Zeus Keister Work Phone: [facility] 10-03-2022 02:26-0500 Heart rate 70 /min DO Zeus Keister Work Phone: [facility] 10-03-2022 02:26-0500 Respiratory rate 14 /min DO Zeus Keister Work Phone: [facility] 10-03-2022 02:26-0500 SaO2% (BldA) [Mass fraction] 98 % DO Zeus Keister Work Phone: [facility] 10-03-2022 01:52-0500 Diastolic blood pressure 79 mm[Hg] DO Zeus Keister Work Phone: [facility] 10-03-2022 01:52-0500 Systolic blood pressure 162 mm[Hg] DO Zeus Keister Work Phone: [facility] 10-02-2022 23:27-0500 Body height 185.42 cm DO Zeus Graceister Work Phone: [facility] 10-02-2022 23:27-0500 Body temperature 97.8 [degF] DO Zeus Graceister Work Phone: [facility] 10-02-2022 23:27-0500 Body weight 75.1 kg DO Zeus Keister Work Phone: [facility] 09-17-2022 13:27-0500 Diastolic blood pressure 62 mm[Hg] DO Rolando Ball Work Phone: [facility] 09-17-2022 13:27-0500 Heart rate 59 /min DO Rolando Ball Work Phone: [facility] 09-17-2022 13:27-0500 Respiratory rate 16 /min DO Rolando Ball Work Phone: [facility] 09-17-2022 13:27-0500 SaO2% (BldA) [Mass fraction] 99 % DO Rolando Ball Work Phone: [facility] 09-17-2022 13:27-0500 Systolic blood pressure 121 mm[Hg] DO Rolando Ball Work Phone: [facility] 09-17-2022 11:51-0500 Inhaled oxygen flow rate 8 L/min DO Rolando Ball Work Phone: [facility] 09-17-2022 10:14-0500 Body height 182.88 cm DO Rolando Ball Work Phone: [facility] 09-17-2022 10:14-0500 Body mass index (BMI) [Ratio] 22.4 kg/m2 DO Rolando Ball Work Phone: [facility] 09-17-2022 10:14-0500 Body weight 75 kg DO Rolando Ball Work Phone: [facility] 09-17-2022 08:35-0500 Body temperature 97.9 [degF] DO Rolando Ball Work Phone: [facility] 09-10-2022 14:28-0500 Body temperature 97.8 [degF] DO Rolando Ball Work Phone: [facility] 09-10-2022 14:28-0500 Body weight 76.9 kg DO Rolando Ball Work Phone: [facility] 09-10-2022 14:28-0500 Diastolic blood pressure 76 mm[Hg] DO Rolando Ball Work Phone: [facility] 09-10-2022 14:28-0500 Heart rate 74 /min DO Rolando Ball Work Phone: [facility] 09-10-2022 14:28-0500 Respiratory rate 16 /min DO Rolando Ball Work Phone: [facility] 09-10-2022 14:28-0500 SaO2% (BldA) [Mass fraction] 99 % DO Rolando Ball Work Phone: [facility] 09-10-2022 14:28-0500 Systolic blood pressure 161 mm[Hg] DO Rolando Ball Work Phone: [facility] 09-05-2022 11:30-0500 Body height 185.42 cm Romain Mendoza Other [employer] Other 09-05-2022 11:30-0500 Body mass index (BMI) [Ratio] 21.77 kg/m2 Romain Menodza Other [employer] Other 09-05-2022 11:30-0500 Body temperature 96.9 [degF] Romain Mendoza Other [employer] Other 09-05-2022 11:30-0500 Body weight 74.84 kg Romain Reji Other [employer] Other 09-05-2022 11:30-0500 Diastolic blood pressure 60 mm[Hg] Romain Mendoza Other [employer] Other 09-05-2022 11:30-0500 SaO2% (BldA) [Mass fraction] 97 % Romainrosa Mendoza Other [employer] Other 09-05-2022 11:30-0500 Systolic blood pressure 100 mm[Hg] Romain Mendoza Other [employer] Other 08-30-2022 10:40-0500 Body height 185.42 cm Angel Kym Other [employer] Other 08-30-2022 10:40-0500 Body mass index (BMI) [Ratio] 21.32 kg/m2 Angel Kym Other [employer] Other 08-30-2022 10:40-0500 Body temperature 98.4 [degF] Angel Kym Other [employer] Other 08-30-2022 10:40-0500 Body weight 73.3 kg Angel Kym Other [employer] Other 08-30-2022 10:40-0500 Diastolic blood pressure 67 mm[Hg] Angel Kym Other [employer] Other 08-30-2022 10:40-0500 Respiratory rate 16 /min Agnel Kym Other [facility] [employer] Other 08-30-2022 10:40-0500 SaO2% (BldA) [Mass fraction] 98 % Angel Kym Other [employer] [facility] [employer] Other 08-30-2022 10:40-0500 Systolic blood pressure 102 mm[Hg] Angel Kym Other [facility] [employer] Other 08-29-2022 10:19-0500 Blood Pressure Location Robyn GUERIN [facility] 08-29-2022 10:19-0500 Diastolic blood pressure 88 mm[Hg] Robyn GUERIN [facility] 08-29-2022 10:19-0500 Heart rate 76 /min Robyn GUERIN [facility] 08-29-2022 10:19-0500 Systolic blood pressure 129 mm[Hg] Robyn GUERIN [facility] 08-13-2022 11:19-0500 Diastolic blood pressure 67 mm[Hg] DO Rolando Ball Work Phone: [facility] 08-13-2022 11:19-0500 Heart rate 68 /min DO Rolando Ball Work Phone: [facility] 08-13-2022 11:19-0500 Respiratory rate 16 /min DO Rolando Ball Work Phone: [facility] 08-13-2022 11:19-0500 SaO2% (BldA) [Mass fraction] 97 % DO Rolando Ball Work Phone: [facility] 08-13-2022 11:19-0500 Systolic blood pressure 107 mm[Hg] DO Rolando Ball Work Phone: [facility] 08-13-2022 08:00-0500 Body temperature 97.4 [degF] DO Rolando Ball Work Phone: [facility] 08-13-2022 03:30-0500 Body height 182.88 cm DO Rolando Ball Work Phone: [facility] 08-13-2022 03:30-0500 Body weight 76 kg DO Rolando Ball Work Phone: [facility] 08-13-2022 02:20-0500 Body temperature 98.4 [degF] DO Rolando Ball Work Phone: [facility] 08-13-2022 02:20-0500 Diastolic blood pressure 90 mm[Hg] DO Rolando Ball Work Phone: [facility] 08-13-2022 02:20-0500 Heart rate 76 /min DO Rolando Ball Work Phone: [facility] 08-13-2022 02:20-0500 Respiratory rate 16 /min DO Rolando Ball Work Phone: [facility] 08-13-2022 02:20-0500 SaO2% (BldA) [Mass fraction] 98 % DO Rolando Ball Work Phone: [facility] 08-13-2022 02:20-0500 Systolic blood pressure 192 mm[Hg] DO Rolando Ball Work Phone: [facility] 08-12-2022 23:06-0500 Body height 182.88 cm DO Rolando Ball Work Phone: [facility] 08-12-2022 23:06-0500 Body weight 76 kg DO Rolando Ball Work Phone: [facility] 07-19-2022 15:15-0500 60 1 Roalndo E Ball Work Phone: [facility] 250 DO Work Phone: Comment on above: [id number] 07-09-2022 21:35-0500 Body temperature 97 [degF] DO Rolando Ball Work Phone: [facility] 07-09-2022 21:35-0500 Diastolic blood pressure 67 mm[Hg] DO Rolando Ball Work Phone: [facility] 07-09-2022 21:35-0500 Heart rate 65 /min DO Rolando Ball Work Phone: [facility] 07-09-2022 21:35-0500 Respiratory rate 18 /min DO Rolando Ball Work Phone: [facility] 07-09-2022 21:35-0500 SaO2% (BldA) [Mass fraction] 100 % DO Rolando Ball Work Phone: [facility] 07-09-2022 21:35-0500 Systolic blood pressure 140 mm[Hg] DO Rolando Ball Work Phone: [facility] 07-09-2022 16:31-0500 Body height 182.88 cm DO Rolando Ball Work Phone: [facility] 07-09-2022 16:31-0500 Body weight 74.2 kg DO Rolando Ball Work Phone: [facility] 07-05-2022 11:35-0500 Body height 185.42 cm Rolando E Ball Work Phone: [facility] [employer] 250 DO Work Phone: 07-05-2022 11:35-0500 Body mass index (BMI) [Ratio] 21.11 kg/m2 Rolando E Ball Work Phone: [facility] 250 DO Work Phone: 07-05-2022 11:35-0500 Body surface area Derived from formula 1.96 m2 Rolando E Ball Work Phone: [facility] DO Work Phone: 07-05-2022 11:35-0500 Body weight 72.58 kg Rolando E Ball Work Phone: [facility] [employer] 250 DO Work Phone: 07-05-2022 11:35-0500 Diastolic blood pressure 72 mm[Hg] Rolando Arreguin Ball Work Phone: [facility] [employer] 250 DO Work Phone: 07-05-2022 11:35-0500 Heart rate 72 /min Rolando Arreguin Ball Work Phone: [facility] [employer] DO Work Phone: 07-05-2022 11:35-0500 Systolic blood pressure 116 mm[Hg] Rolando lOivares Work Phone: [facility] [employer] DO Work Phone: 07-04-2022 11:00-0500 Body height 185.42 cm Angel Kym Other [employer] Other 07-04-2022 11:00-0500 Body mass index (BMI) [Ratio] 20.76 kg/m2 Angel Kym Other [employer] Other 07-04-2022 11:00-0500 Body temperature 98.4 [degF] Angel Kym Other [employer] Other 07-04-2022 11:00-0500 Body weight 71.4 kg Angel Kym Other [employer] Other 07-04-2022 11:00-0500 Diastolic blood pressure 89 mm[Hg] Angel Kym Other [employer] Other 07-04-2022 11:00-0500 Respiratory rate 16 /min Angel Kym Other [employer] Other 07-04-2022 11:00-0500 SaO2% (BldA) [Mass fraction] 98 % Angel Kym Other [facility] [employer] Other 07-04-2022 11:00-0500 Systolic blood pressure 139 mm[Hg] Angel Kym Other [facility] [employer] Other 06-13-2022 11:10-0400 Diastolic blood pressure 86 mm[Hg] DO Rolando Ball Work Phone: [facility] 06-13-2022 11:10-0400 Heart rate 79 /min DO Rolando Ball Work Phone: [facility] 06-13-2022 11:10-0400 Respiratory rate 18 /min DO Rolando Ball Work Phone: [facility] 06-13-2022 11:10-0400 SaO2% (BldA) [Mass fraction] 99 % DO Rolando Ball Work Phone: [facility] 06-13-2022 11:10-0400 Systolic blood pressure 178 mm[Hg] DO Rolando Ball Work Phone: [facility] 06-13-2022 07:37-0400 Body height 182.88 cm DO Rolando Ball Work Phone: [facility] 06-13-2022 07:37-0400 Body temperature 97.5 [degF] DO Rolando Ball Work Phone: [facility] 06-13-2022 07:37-0400 Body weight 72.57 kg DO Rolando Ball Work Phone: [facility] 06-03-2022 20:08-0400 Diastolic blood pressure 82 mm[Hg] DO Rolando Ball Work Phone: [facility] 06-03-2022 20:08-0400 Heart rate 68 /min DO Rolando Ball Work Phone: [facility] 06-03-2022 20:08-0400 Respiratory rate 18 /min DO Rolando Ball Work Phone: [facility] 06-03-2022 20:08-0400 SaO2% (BldA) [Mass fraction] 99 % DO Rolando Ball Work Phone: [facility] 06-03-2022 20:08-0400 Systolic blood pressure 152 mm[Hg] DO Rolando Ball Work Phone: [facility] 06-03-2022 15:02-0400 Body height 182.88 cm DO Rolando Ball Work Phone: [facility] 06-03-2022 15:02-0400 Body temperature 98 [degF] DO Rolando Ball Work Phone: [facility] 06-03-2022 15:02-0400 Body weight 77.11 kg DO Rolando Ball Work Phone: [facility] 05-29-2022 11:01-0400 Body temperature 97.5 [degF] DO Rolando Ball Work Phone: [facility] 05-29-2022 11:01-0400 Body weight 79.37 kg DO Rolando Ball Work Phone: [facility] 05-29-2022 11:01-0400 Diastolic blood pressure 75 mm[Hg] DO Rolando Ball Work Phone: [facility] 05-29-2022 11:01-0400 Heart rate 80 /min DO Rolando Ball Work Phone: [facility] 05-29-2022 11:01-0400 Respiratory rate 16 /min DO Rolando Ball Work Phone: [facility] 05-29-2022 11:01-0400 SaO2% (BldA) [Mass fraction] 98 % DO Rolando Ball Work Phone: [facility] 05-29-2022 11:01-0400 Systolic blood pressure 118 mm[Hg] DO Rolando Ball Work Phone: [facility] 05-23-2022 11:40-0400 Body height 185.42 cm Angel Kym Other [employer] Other 05-23-2022 11:40-0400 Body mass index (BMI) [Ratio] 22 kg/m2 Angel Kym Other [employer] Other 05-23-2022 11:40-0400 Body temperature 98.2 [degF] Angel Kym Other [employer] Other 05-23-2022 11:40-0400 Body weight 75.66 kg Angel Kym Other [employer] Other 05-23-2022 11:40-0400 Diastolic blood pressure 92 mm[Hg] Angel Kym Other [employer] Other 05-23-2022 11:40-0400 Respiratory rate 16 /min Angel Kym Other [employer] Other 05-23-2022 11:40-0400 SaO2% (BldA) [Mass fraction] 98 % Angel Kym Other [employer] Other 05-23-2022 11:40-0400 Systolic blood pressure 168 mm[Hg] Angel Kym Other [employer] Other 05-22-2022 01:36-0400 Body temperature 99 [degF] DO Rolando Ball Work Phone: [facility] 05-22-2022 01:36-0400 Diastolic blood pressure 78 mm[Hg] DO Rolando Ball Work Phone: [facility] 05-22-2022 01:36-0400 Heart rate 67 /min DO Rolando Ball Work Phone: [facility] 05-22-2022 01:36-0400 Respiratory rate 18 /min DO Rolando Ball Work Phone: [facility] 05-22-2022 01:36-0400 SaO2% (BldA) [Mass fraction] 96 % DO Rolando Ball Work Phone: [facility] 05-22-2022 01:36-0400 Systolic blood pressure 154 mm[Hg] DO Rolando Ball Work Phone: [facility] 05-21-2022 22:03-0400 Body height 182.88 cm DO Rolando Ball Work Phone: [facility] 05-21-2022 22:03-0400 Body weight 74 kg DO Rolando Ball Work Phone: [facility] 05-18-2022 11:40-0400 Diastolic blood pressure 95 mm[Hg] DO Rolando Ball Work Phone: [facility] 05-18-2022 11:40-0400 Heart rate 80 /min DO Rolando Ball Work Phone: [facility] 05-18-2022 11:40-0400 Respiratory rate 16 /min DO Rolando Ball Work Phone: [facility] 05-18-2022 11:40-0400 SaO2% (BldA) [Mass fraction] 99 % DO Rolando Ball Work Phone: [facility] 05-18-2022 11:40-0400 Systolic blood pressure 172 mm[Hg] DO Rolando Ball Work Phone: [facility] 05-18-2022 08:57-0400 Body height 182.88 cm DO Rolando Ball Work Phone: [facility] 05-18-2022 08:57-0400 Body weight 75.29 kg DO Rolando Ball Work Phone: [facility] 05-09-2022 13:45-0400 Body temperature 98 [degF] DO Rolando Ball Work Phone: [facility] 05-09-2022 13:45-0400 Body weight 75.43 kg DO Rolando Ball Work Phone: [facility] 05-09-2022 13:45-0400 Diastolic blood pressure 80 mm[Hg] DO Rolando Ball Work Phone: [facility] 05-09-2022 13:45-0400 Heart rate 73 /min DO Rolando Ball Work Phone: [facility] 05-09-2022 13:45-0400 Respiratory rate 20 /min DO Rolando Ball Work Phone: [facility] 05-09-2022 13:45-0400 SaO2% (BldA) [Mass fraction] 99 % DO Rolando Ball Work Phone: [facility] 05-09-2022 13:45-0400 Systolic blood pressure 126 mm[Hg] DO Rolando Ball Work Phone: [facility] 05-09-2022 08:47-0400 Body height 182.88 cm DO Rolando Ball Work Phone: [facility] 04-20-2022 12:00-0400 Body height 185.42 cm Angel Kym Other [employer] [facility] [employer] Other 04-20-2022 12:00-0400 Body mass index (BMI) [Ratio] 21.98 kg/m2 Angel Kym Other [employer] Other 04-20-2022 12:00-0400 Body weight 75.57 kg Angel Kym Other [employer] Other 04-20-2022 12:00-0400 Diastolic blood pressure 73 mm[Hg] Angel Kym Other [employer] Other 04-20-2022 12:00-0400 Respiratory rate 16 /min Angel Kym Other [employer] Other 04-20-2022 12:00-0400 SaO2% (BldA) [Mass fraction] 97 % Angel Kym Other [employer] Other 04-20-2022 12:00-0400 Systolic blood pressure 111 mm[Hg] Angel Kym Other [employer] [facility] [employer] Other 04-10-2022 02:06-0400 Diastolic blood pressure 82 mm[Hg] DO Rolando Ball Work Phone: [facility] 04-10-2022 02:06-0400 Heart rate 71 /min DO Rolando Ball Work Phone: [facility] 04-10-2022 02:06-0400 Respiratory rate 18 /min DO Rolando Ball Work Phone: [facility] 04-10-2022 02:06-0400 SaO2% (BldA) [Mass fraction] 99 % DO Rolando Ball Work Phone: [facility] 04-10-2022 02:06-0400 Systolic blood pressure 156 mm[Hg] DO Rolando Ball Work Phone: [facility] 04-09-2022 23:48-0400 Body temperature 97.2 [degF] DO Rolando Ball Work Phone: [facility] 04-09-2022 21:52-0400 Body height 182.88 cm DO Rolando Ball Work Phone: [facility] 04-09-2022 21:52-0400 Body weight 77.11 kg DO Rolando Ball Work Phone: [facility] 03-29-2022 16:20-0400 Body height 185.42 cm Angel Kym Other [employer] Other 03-29-2022 16:20-0400 Body mass index (BMI) [Ratio] 23.4 kg/m2 Angel Kym Other [employer] Other 03-29-2022 16:20-0400 Body temperature 96.4 [degF] Angel Kym Other [employer] Other 03-29-2022 16:20-0400 Body weight 80.47 kg Angel Kym Other [employer] Other 03-29-2022 16:20-0400 Diastolic blood pressure 88 mm[Hg] Angel Kym Other [employer] Other 03-29-2022 16:20-0400 Respiratory rate 18 /min Angel Kym Other [employer] Other 03-29-2022 16:20-0400 SaO2% (BldA) [Mass fraction] 98 % Angel Kym Other [employer] Other 03-29-2022 16:20-0400 Systolic blood pressure 161 mm[Hg] Angel Kym Other [employer] Other 12-19-2021 10:40-0400 Body height 185.42 cm Angel Kym Other [employer] Other 12-19-2021 10:40-0400 Body mass index (BMI) [Ratio] 22.32 kg/m2 Angel Kym Other [employer] Other 12-19-2021 10:40-0400 Body temperature 97.6 [degF] Angel Kym Other [employer] Other 12-19-2021 10:40-0400 Body weight 76.75 kg Angel Kym Other [employer] Other 12-19-2021 10:40-0400 Diastolic blood pressure 90 mm[Hg] Angel Kym Other [employer] Other 12-19-2021 10:40-0400 Respiratory rate 18 /min Angel Kym Other [employer] Other 12-19-2021 10:40-0400 SaO2% (BldA) [Mass fraction] 99 % Angel Kym Other [employer] Other 12-19-2021 10:40-0400 Systolic blood pressure 160 mm[Hg] Angel Kym Other [employer] Other 12-07-2021 09:25-0400 Body height 185.42 cm DO Rolando Ball Work Phone: [facility] 12-07-2021 09:25-0400 Body weight 75.56 kg DO Rolando Ball Work Phone: [facility] 11-24-2021 13:12-0400 Body height 185.42 cm Rolando E Ball Work Phone: [facility] [employer] DO Work Phone: 11-24-2021 13:12-0400 Body mass index (BMI) [Ratio] 23.38 kg/m2 Rolando E Ball Work Phone: [facility] [employer] DO Work Phone: 11-24-2021 13:12-0400 Body surface area Derived from formula 2.04 m2 Rolando E Ball Work Phone: [facility] DO Work Phone: 11-24-2021 13:12-0400 Body weight 80.38 kg Rolando E Ball Work Phone: [facility] DO Work Phone: 11-24-2021 13:12-0400 Diastolic blood pressure 78 mm[Hg] Rolando E Ball Work Phone: [facility] DO Work Phone: 11-24-2021 13:12-0400 Heart rate 83 /min Rolando E Ball Work Phone: [facility] DO Work Phone: 11-24-2021 13:12-0400 Systolic blood pressure 126 mm[Hg] Rolando E Ball Work Phone: [facility] [employer] DO Work Phone: 11-15-2021 00:00-0400 42 1 Rolando Arreguin Ball Work Phone: [facility] [employer] DO Work Phone: Comment on above: [id number] 11-08-2021 14:00-0400 Body height 185.42 cm Angel Kym Other [employer] Other 11-08-2021 14:00-0400 Body mass index (BMI) [Ratio] 26.01 kg/m2 Angel Kym Other [employer] Other 11-08-2021 14:00-0400 Body temperature 98.4 [degF] Angel Kym Other [employer] Other 11-08-2021 14:00-0400 Body weight 89.45 kg Angel Kym Other [employer] Other 11-08-2021 14:00-0400 Diastolic blood pressure 103 mm[Hg] Angel Kym Other [employer] Other 11-08-2021 14:00-0400 Respiratory rate 18 /min Angel Kym Other [employer] Other 11-08-2021 14:00-0400 SaO2% (BldA) [Mass fraction] 96 % Angel Kym Other [employer] Other 11-08-2021 14:00-0400 Systolic blood pressure 164 mm[Hg] Angel Kym Other [employer] Other Encounters Encounter Date Encounter Type Care Provider Facility Start: 01-10-2024 End: 01-10-2024 ambulatory Angel Kym Facility:[facility] Start: 01-10-2024 End: 01-10-2024 ambulatory DO Rolando Ball Work Phone: [facility] Work Phone: Start: 01-10-2024 End: 01-10-2024 Departed Referred DO Rolando Ball Work Phone: [facility] Work Phone: Start: 01-09-2024 End: 01-09-2024 ambulatory DAVID BERG Not Available Start: 01-09-2024 End: 01-09-2024 ambulatory DO Rolando Ball Work Phone: [facility] Work Phone: Start: 01-09-2024 End: 01-09-2024 Patient encounter procedure DO Rolando Ball Work Phone: [facility] Work Phone: Start: 12-11-2023 Non-patient / Non-visit DO Lauri amy Olivares Work Phone: [facility] Work Phone: Start: 12-03-2023 End: 12-03-2023 ambulatory [facility] Ambulatory Start: 12-03-2023 End: 12-03-2023 Office outpatient visit 25 minutes [facility] DO Work Phone: [facility] Comment on above: ASHD (arteriosclerot ic heart disease); Essential hypertension, benign; Mixed hyperlipidemia; History of VT (myocardial infarction); Status post insertion of drug eluting coronary artery stent; ESRD (end stage renal disease) on dialysis (Multi); Current every day smoker; Type 2 diabetes mellitus with chronic kidney disease on chronic dialysis, with long-term current use of insulin (Multi); BMI 22.0-22.9, adult Start: 11-26-2023 Non-patient / Non-visit DO Lauri Olivares Work Phone: [facility] Physician [facility] Vascular Surgery Work Phone: Start: 11-26-2023 End: 11-26-2023 ambulatory Romain Mendoza Facility:[facility] Start: 11-26-2023 End: 11-26-2023 Admission to same day surgery center DO Rolando Marshall Work Phone: [facility]-Surgery [facility] [place] Start: 11-26-2023 End: 11-26-2023 ambulatory DO Rolando Olivares Work Phone: [facility] Work Phone: Start: 11-19-2023 End: 11-19-2023 ambulatory BRITTNI BEAN Not Available Start: 11-18-2023 End: 11-19-2023 ambulatory Robyn GUERIN Facility:[facility] Start: 11-18-2023 End: 11-18-2023 Patient encounter procedure Robyn GUERIN [facility] Start: 11-14-2023 End: 11-14-2023 ambulatory DO Rolando Olivares Work Phone: [facility] Work Phone: Start: 11-14-2023 End: 11-14-2023 Patient encounter procedure DO Rolando Marshall Work Phone: [facility] Work Phone: Start: 11-10-2023 Non-patient / Non-visit DO Lauri Olivares Work Phone: [facility] Physician [facility] Work Phone: Start: 10-31-2023 End: 10-31-2023 ambulatory Romain Mendoza Facility:[facility] Start: 10-31-2023 Non-patient / Non-visit DO Lauri Olivares Work Phone: [facility] Vascular Surgery Work Phone: Start: 10-31-2023 End: 10-31-2023 Admission to same day surgery center DO Rolando Olivares Work Phone: [facility]-Interventional Radiology Work Phone: Start: 10-31-2023 End: 10-31-2023 ambulatory DO Rolando Olivares Work Phone: [facility] Work Phone: Start: 10-24-2023 End: 10-24-2023 ambulatory DAVID BERG Not Available Start: 10-17-2023 End: 10-17-2023 Patient encounter procedure DO Rolando Olivares Work Phone: [facility] Physician [facility] Vascular Surgery Work Phone: Start: 10-17-2023 End: 10-17-2023 Patient encounter procedure DO Rolando Olivares Work Phone: [facility] Physician [facility] Palliative Care Work Phone: Start: 10-15-2023 End: 10-15-2023 ambulatory ANGELINA OLIVER Not Available Start: 10-12-2023 Non-patient / Non-visit DO Lauri reyes [place] Work Phone: [facility] Work Phone: Start: 10-02-2023 End: 10-02-2023 Emergency department patient visit Rolando Olivares Facility:[facility] Start: 10-02-2023 End: 10-02-2023 Emergency department patient visit DO Rolando Olivares Work Phone: [facility]-Emergency Room Work Phone: Start: 10-01-2023 ambulatory Angel Kym Facility:[facility] Start: 10-01-2023 End: 10-01-2023 Patient encounter procedure DO Rol[facility] Work Phone: Start: 10-01-2023 Registered Recurring DO Bg in Ball Work Phone: [facility]-Cancer Center Acute Work Phone: Start: 09-30-2023 End: 09-30-2023 ambulatory NELIDA B APLING Not Available Start: 09-30-2023 End: 09-30-2023 Office outpatient visit 15 minutes Nelida B Josephing SCREED OPERATOR Work Phone: [facility] Comment on above: Left shoulder pain, unspecified chronicity (Primary Dx); Impingement of left shoulder; Internal derangement of left shoulder Start: 09-24-2023 End: 09-24-2023 ambulatory ANGELINA OLIVER Not Available Start: 09-24-2023 External Result Encounter aV Fotre SCREED OPERATOR Work Phone: [facility] External Department Unsolicited Start: 09-24-2023 External Result Encounter Va Forte SCREED OPERATOR Work Phone: [facility] External Department Unsolicited Start: 09-17-2023 End: 09-17-2023 ambulatory ANGELINA OLIVER Not Available Start: 09-09-2023 End: 09-10-2023 ambulatory NELIDA B APLING Not Available Start: 09-05-2023 Telephone encounter Rolando Olivares [facility] Start: 09-05-2023 End: 09-05-2023 ambulatory ANGELINA OLIVER [facility] [employer] Other Start: 08-29-2023 Office outpatient vi sit 10 minutes Romain Mendoza [facility] Vascular Surgery Start: 08-29-2023 End: 08-29-2023 ambulatory Romain Mendoza Facility:[facility] Start: 08-29-2023 End: 08-29-2023 ambulatory DO Rolando Ball Work Phone: [facility] Work Phone: Start: 08-29-2023 End: 08-29-2023 Patient encounter procedure DO Rolando Ball Work Phone: [facility]-Ultrasound [facility] Vascular Start: 08-29-2023 End: 08-29-2023 Patient encounter procedure DO Rolando Ball Work Phone: [facility] Vascular Surgery Work Phone: Start: 08-26-2023 End: 08-26-2023 ambulatory Rolando Ball Other [place] [employer] Other Start: 08-26-2023 Telephone encounter Rolando Ball [facility] Start: 08-18-2023 End: 08-18-2023 ambulatory Elder Stewart Facility:[facility] Start: 08-18-2023 End: 08-18-2023 Evaluation and management of inpatient DO Rolando Ball Work Phone: [facility] [place] [facility] Work Phone: Start: 08-18-2023 End: 08-18-2023 observation encounter DO Rolando Ball Work Phone: [facility] Work Phone: Start: 08-15-2023 End: 08-15-2023 ambulatory DAVID BERG Not Available Start: 08-13-2023 End: 08-13-2023 ambulatory Rolando Ball Other [place] [employer] Other Start: 08-13-2023 Office outpatient vi sit 25 minutes Rolando Ball [facility] Start: 08-13-2023 End: 08-13-2023 Patient encounter procedure DO Rolando Olivares Work Phone: [facility] Work Phone: Start: 07-22-2023 End: 07-22-2023 ambulatory Rolando Olivares Other [employer] Other Start: 07-22-2023 Telephone encounter Rolando Olivares [facility] Start: 07-18-2023 End: 07-18-2023 ambulatory ANGELINA OLIVER Not Available Start: 07-16-2023 End: 07-16-2023 ambulatory Rolando Olivares Other [employer] Other Start: 07-16-2023 Office outpatient vi sit 25 minutes Rolando Olivares [facility] Start: 07-16-2023 End: 07-16-2023 Patient encounter procedure DO Rolando Olivares Work Phone: [facility] Work Phone: Start: 07-04-2023 End: 07-04-2023 ambulatory Romain Mendoza Other [employer] Other Start: 07-04-2023 Office outpatient vi sit 10 minutes Romain Mendoza [facility] Vascular Surgery Start: 07-02-2023 End: 07-02-2023 ambulatory Romain eMndoza Facility:[facility] Start: 07-02-2023 End: 07-02-2023 ambulatory DO Rolando Marshall Work Phone: [facility] Work Phone: Start: 07-02-2023 End: 07-02-2023 Patient encounter procedure DO Rolando Olivares Work Phone: [facility]-Ultrasound [facility] Vascular Start: 06-17-2023 End: 06-17-2023 ambulatory Romain Mendoza Facility:[facility] Start: 06-17-2023 End: 06-17-2023 Admission to same day surgery center DO Rolando Ball Work Phone: [facility]-Interventional Radiology Work Phone: Start: 06-17-2023 End: 06-17-2023 ambulatory DO Rolando Ball Work Phone: [facility] Work Phone: Start: 06-13-2023 Office outpatient vi sit 15 minutes Zina Childs [facility] Start: 06-13-2023 End: 06-13-2023 ambulatory DO Rolando Ball Work Phone: [employer] Other Start: 06-13-2023 End: 06-13-2023 Patient encounter procedure DO Rolando Ball Work Phone: [facility]-Ultrasound [facility] Start: 05-28-2023 End: 05-28-2023 ambulatory Rolando Ball Other [employer] Other Start: 05-28-2023 Office outpatient vi sit 15 minutes Rolando Ball [facility] Start: 04-23-2023 Rx Renewal Rolando E Bal l Work Phone: [facility] 250 DO Work Phone: Start: 04-12-2023 End: 04-12-2023 ambulatory Romain Mendoza Facility:[facility] Start: 04-12-2023 End: 04-12-2023 Admission to same day surgery center DO Rolando Ball Work Phone: [facility]-Interventional Radiology Work Phone: Start: 04-12-2023 End: 04-12-2023 ambulatory DO Rolando Ball Work Phone: [facility] Work Phone: Start: 04-10-2023 Office outpatient vi sit 15 minutes Romain Mendoza [facility] Vascular Surgery Start: 04-10-2023 Telephone encounter Romain Chapman [facility] Start: 04-10-2023 End: 04-10-2023 ambulatory Romain Mendoza [facility] [employer] Other Start: 04-10-2023 End: 04-10-2023 Patient encounter procedure DO Rolando Ball Work Phone: [facility]-Ultrasound [facility] V[facility] Start: 03-26-2023 End: 03-26-2023 ambulatory DO Rolando Ball Work Phone: [facility] Work Phone: Start: 03-26-2023 End: 03-26-2023 Registered Recurring DO Rolando Ball Work Phone: [facility]-Cancer Center Work Phone: Start: 02-27-2023 Office outpatient vi sit 25 minutes Angel Kym [facility] Start: 02-27-2023 End: 02-27-2023 Patient encounter procedure Zina Childs Other [facility]-Ultrasound [facility] Vascular Start: 02-27-2023 Telephone encounter Angel Kym [facility] Start: 02-27-2023 End: 02-27-2023 ambulatory Angel Kym Facility:[facility] Start: 02-27-2023 Registered Recurring DO Benjam in Ball Work Phone: [facility]-Cancer Center Work Phone: Start: 02-27-2023 End: 02-27-2023 ambulatory DO Rolando Ball Work Phone: [facility] [employer] Other Start: 02-26-2023 Office outpatient vi sit 15 minutes Rolando E Ball Work Phone: [facility] 250 DO Work Phone: Start: 02-26-[address] Elder Gomez Facility: Start: 02-11-2023 End: 02-11-2023 ambulatory Angel Kym Other [facility] [employer] Other Start: 02-11-2023 Office outpatient vi sit 15 minutes Angel Kym [facility] Start: 02-07-2023 Rx Renewal Rolando Arndt l Work Phone: [facility] 250 DO Work Phone: Start: 02-07-2023 Rx Renewal Rolando Rodríguez Arndt l Work Phone: [facility] 250 DO Work Phone: Start: 02-04-2023 Telephone encounter Rolando Olivares [facility] Start: 02-04-2023 End: 02-04-2023 Admission to same day surgery center DO Rolando Olivares Work Phone: [facility]-Marketing Proposal Coordinator Work Phone: Start: 02-04-2023 End: 02-05-2023 ambulatory DO Rolando Olivares Work Phone: [facility] Work Phone: Start: 01-31-2023 Chart Update Rolando almaraz Work Phone: [facility] 250 DO Work Phone: Start: 01-31-2023 End: 01-31-2023 ambulatory Rolando Olivares Facility:[facility] Start: 01-31-2023 End: 01-31-2023 ambulatory DO Rolando Olivares Work Phone: [facility] Work Phone: Start: 01-31-2023 End: 01-31-2023 Patient encounter procedure DO Rolando Olivares Work Phone: [facility] [employer] Work Phone: Start: 01-23-2023 End: 01-23-2023 ambulatory Romain Mendoza Other [employer] Other Start: 01-23-2023 Postop follow up vis it related to original px Romain Mendoza [facility] Start: 01-16-2023 Rx Renewal Rolando Arndt l Work Phone: [facility] 250 DO Work Phone: Start: 01-16-2023 Office outpatient vi sit 40 minutes Rolando Olivares Work Phone: -[facility] 250 DO Work Phone: Start: 01-16-[address] Elder Gomez Facility: Start: 01-09-[address] Rolando Olivares Facility:[id number] Start: 01-09-2023 End: 01-09-2023 Evaluation and management of inpatient DO Rolando Marshall Work Phone: [facility] [place] [facility] Work Phone: Start: 12-25-2022 End: 12-25-2022 Emergency department patient visit DO Robyn Gonzalezoanh Work Phone: [facility]-Emergency Room Work Phone: Start: 12-25-2022 End: 12-25-2022 ambulatory DO Robyn Gr Work Phone: [facility] Work Phone: Start: 12-25-2022 End: 12-25-2022 Patient encounter procedure DO Robyn Gr Work Phone: [facility]-Lab [facility] [place] Work Phone: Start: 12-18-2022 End: 12-18-2022 Admission to same day surgery center DO Robyn Gr Work Phone: [facility]-Surgery Center [place] Start: 12-11-2022 End: 12-11-2022 Admission to same day surgery center DO Robyn Tupa Work Phone: [facility]-Interventional Radiology Work Phone: Start: 12-11-2022 End: 12-11-2022 ambulatory DO Robyn Gr Work Phone: [facility] Work Phone: Start: 12-06-2022 (INJECTION) INJECTION Angel Kym [facility] Start: 12-06-2022 End: 12-06-2022 ambulatory Angel Kym Other [employer] Other Start: 12-04-2022 End: 12-04-2022 Admission to same day surgery center DO Rolando Ball Work Phone: [facility]-Interventional Radiology Work Phone: Start: 12-04-2022 End: 12-04-2022 ambulatory DO Rolando Ball Work Phone: [facility] Work Phone: Start: 11-28-2022 End: 11-28-2022 Patient encounter procedure Zina Childs [facility] Start: 11-28-2022 End: 11-28-2022 ambulatory DO Rolando Olivares Work Phone: [employer] Other Start: 11-26-2022 End: 11-26-2022 ambulatory Angel Kym Other [employer] Other Start: 11-26-2022 Telephone encounter Angel Kym [facility] Start: 11-20-2022 End: 11-20-2022 ambulatory DO Rolando Ball Work Phone: [facility] Work Phone: Start: 11-20-2022 End: 11-20-2022 Patient encounter procedure DO Rolando Ball Work Phone: [facility]-Lab [facility] [place] Work Phone: Start: 11-19-2022 End: 11-19-2022 ambulatory Angel Kym Other [employer] Other Start: 11-19-2022 Office outpatient vi sit 25 minutes Angel Kym [facility] Start: [facility]-14-20[facility] Provider: Elder Gomez, Status: Pen, Time: 2:00 PM Rolando Olivares Work Phone: [facility] 250 DO Work Phone: Start: 11-14-2022 End: 11-14-2022 ambulatory DO Rolando Olivares Work Phone: [facility] [employer] Other Start: 11-14-2022 End: 11-14-2022 Departed Referred DO Rolando Olivares Work Phone: [facility]-Marketing Proposal Coordinator Work Phone: Start: 11-14-2022 Telephone encounter Nona GUTIERREZ Nephrology Start: 11-13-2022 Chart Update Rolando almaraz Work Phone: [facility] 250 DO Work Phone: Start: 11-12-2022 Telephone encounter Rolando LEMUS [facility] Start: 11-12-2022 End: 11-12-2022 ambulatory DO Rolando Olivares Work Phone: [facility] Work Phone: Start: 11-12-2022 End: 11-12-2022 Patient encounter procedure DO Rolando Olivares Work Phone: [facility] [employer] Work Phone: Start: 11-06-2022 Telephone encounter Rolando Olivares Work Phone: [facility] 250 DO Work Phone: Start: 10-23-2022 End: 10-23-2022 ambulatory Rolando Marshall Other [facility] [employer] Other Start: 10-23-2022 Telephone encounter Rolando LEMUS [facility] Start: 10-18-2022 Office outpatient vi sit 25 minutes Rolando Olivares Work Phone: [facility] 250 DO Work Phone: Start: 10-18-[address] Rolando Olivares Facility: Start: 10-16-2022 End: 10-16-2022 ambulatory Angel Kym Other [employer] Other Start: 10-16-2022 Office outpatient vi sit 25 minutes Angel Kym [facility] Start: 10-10-2022 End: 10-10-2022 Patient encounter procedure DO Rolando Olivares Work Phone: [facility]-Lab [facility] [place] Work Phone: Start: 10-10-2022 End: 10-10-2022 ambulatory DO Rolando Olivares Work Phone: [facility] Work Phone: Start: 10-08-2022 End: 10-08-2022 ambulatory Rolando Olivares Other [employer] Other Start: 10-08-2022 Office outpatient vi sit 25 minutes Rolando Marshall [facility] Start: 10-03-[address] Rolando Olivares Facility:[id number] Start: 10-03-2022 End: 10-03-2022 Evaluation and management of inpatient DO Zeus Bradley Work Phone: [facility] [place] [facility] Work Phone: Start: 10-03-2022 End: 10-03-2022 observation encounter DO Zeus Bradley Work Phone: [facility] Work Phone: Start: 09-17-2022 End: 09-17-2022 Admission to same day surgery center DO Rolando Olivares Work Phone: [facility]-Surgery Center [place] Start: 09-17-2022 End: 09-17-2022 ambulatory DO Rolando Olivares Work Phone: [facility] Work Phone: Start: 09-12-2022 ambulatory ANGEL KYM Facility:H 1 Start: 09-10-2022 End: 09-10-2022 Patient encounter procedure DO Rolando Marshall Work Phone: [facility]-Pre-Surgical Testing Work Phone: Start: 09-10-2022 End: 09-10-2022 ambulatory DO Rolando Ball Work Phone: [facility] Work Phone: Start: 09-10-2022 End: 09-10-2022 Registered Recurring DO Rolando Ball Work Phone: [facility]-Cancer Center Work Phone: Start: 09-05-2022 End: 09-05-2022 ambulatory DO Rolando Ball Work Phone: [facility] Work Phone: Start: 09-05-2022 Office outpatient ne w 45 minutes Romain Mendoza [facility] Start: 09-05-2022 End: 09-05-2022 Patient encounter procedure DO Rolando Ball Work Phone: [facility]-Ultrasound [place] Work Phone: Start: 09-01-2022 Registered Recurring DO Benjam in Ball Work Phone: [facility]-Cancer Center Work Phone: Start: 08-30-2022 End: 08-30-2022 ambulatory Angel Kym Other [employer] Other Start: 08-30-2022 Office outpatient vi sit 25 minutes Angel Kym [facility] Start: 08-30-2022 Telephone encounter Angel Kym [facility] Start: 08-29-2022 End: 08-29-2022 Patient encounter procedure Robyn GUERIN [facility] [place] Start: 08-17-2022 End: 08-17-2022 ambulatory DO Rolando Ball Work Phone: [facility] Work Phone: Start: 08-17-2022 End: 08-17-2022 Patient encounter procedure DO Rolando Ball Work Phone: [facility]-Lab [facility] [place] Work Phone: Start: 08-13-2022 End: 08-13-2022 Evaluation and management of inpatient DO Rolando Olivares Work Phone: [facility] [place] [facility] Work Phone: Start: 08-13-2022 End: 08-13-2022 observation encounter DO Rolando Olivares Work Phone: [facility] Work Phone: Start: 08-02-2022 [facility] Comment on above: Returning Patient's Call Start: 07-19-2022 Chart Update Rolando almaraz Work Phone: [facility] 250 DO Work Phone: Start: 07-19-2022 End: 07-19-2022 Patient encounter procedure DO Rolando Olivares Work Phone: [facility]-Electrodiagnostics Work Phone: Start: 07-19-[address] Rolando Olivares Facility:[id number] Start: 07-15-2022 Adult health examination Romain Mendoza Other [facility] [employer] Other Start: 07-09-2022 End: 07-09-2022 Emergency department patient visit DO Rolando Olivares Work Phone: [facility]-Emergency Room Start: 07-05-[address] Rolando Olivares Facility: Start: 07-05-2022 Office outpatient vi sit 25 minutes Rolando Olivares Work Phone: [facility] 250 DO Work Phone: Start: 07-04-2022 End: 07-04-2022 ambulatory Angel Mejía Other [facility] [employer] Other Start: 07-04-2022 Office outpatient vi sit 15 minutes Angel Kym [facility] Start: 06-29-2022 End: 06-29-2022 ambulatory DO Rolando Ball Work Phone: [facility] Work Phone: Start: 06-29-2022 End: 06-29-2022 Patient encounter procedure DO Rolando Ball Work Phone: [facility]-Lab [place] Start: 06-13-2022 End: 06-13-2022 Emergency department patient visit DO Rolando Ball Work Phone: [facility]-Emergency Room Start: 06-03-2022 End: 06-03-2022 Emergency department patient visit DO Rolando Ball Work Phone: [facility]-Emergency Room Start: 05-29-2022 End: 05-29-2022 ambulatory DO Rolando Ball Work Phone: [facility] Work Phone: Start: 05-29-2022 End: 05-29-2022 Registered Recurring DO Rolando Ball Work Phone: [facility]-Cancer Center Start: 05-23-2022 End: 05-23-2022 ambulatory Angel Kym Other [place] [employer] Other Start: 05-23-2022 Office outpatient vi sit 25 minutes Angel Kym [facility] Start: 05-21-2022 End: 05-22-2022 Emergency department patient visit DO Rolando Ball Work Phone: [facility]-Emergency Room Start: 05-18-2022 End: 05-18-2022 Admission to same day surgery center DO Rolando Ball Work Phone: [facility]-CT Scan [place] Start: 05-18-2022 End: 05-18-2022 ambulatory DO Rolando Ball Work Phone: [facility] Work Phone: Start: 05-15-2022 Registered Recurring DO Benjam in Ball Work Phone: [facility]-Cancer Center Start: 05-09-2022 End: 05-09-2022 Registered Recurring DO Rolando Olivares [facility] Start: 04-29-2022 End: 04-29-2022 ambulatory Angel Kym Other [employer] Other Start: 04-29-2022 Telephone encounter Angel Kym [facility] Start: 04-20-2022 (INJECTION) INJECTION Angel Kym [facility] Start: 04-20-2022 End: 04-20-2022 ambulatory Angel Kym Other [employer] Other Start: 04-20-2022 Telephone encounter Angel Kym [facility] Start: 04-20-2022 End: 04-20-2022 Patient encounter procedure DO Rolando Olivares Work Phone: [facility]-Lab [facility] [place] Start: 04-09-2022 End: 04-10-2022 Emergency department patient visit DO Rolando Olivares Work Phone: [facility]-Emergency Room Start: 04-04-2022 End: 04-04-2022 ambulatory Aziz Bakhous Other [employer] Other Start: 04-04-2022 Telephone encounter Aziz Bakhous [facility] Start: 03-29-2022 End: 03-29-2022 ambulatory Angel Kym Other [employer] Other Start: 03-29-2022 Office outpatient vi sit 15 minutes Angel Kym [facility] Start: 03-29-2022 Telephone encounter Angel Kym [facility] Start: 03-14-2022 End: 03-14-2022 ambulatory Angel Kym Other [employer] Other Start: 03-14-2022 Telephone encounter Angel Kym [facility] Start: 03-13-2022 End: 03-13-2022 Patient encounter procedure DO Rolando Olivares Work Phone: [facility] Start: 03-09-2022 End: 03-09-2022 Patient encounter procedure DO Rolando Olivares Work Phone: [facility] Start: 01-24-2022 Rx Renewal Rolando almaraz Work Phone: [facility] 250 DO Work Phone: Start: 12-25-2021 End: 12-25-2021 Patient encounter procedure DO Rolando Olivares Work Phone: [facility] Start: 12-19-2021 End: 12-19-2021 ambulatory Angel Kym Other [employer] Other Start: 12-19-2021 Office outpatient vi sit 25 minutes Angel Kym [facility] Start: 12-18-2021 Registered Recurring DO Bg in [employer] Work Phone: [facility]-Cardiac Rehabilitation Start: 12-15-2021 Rx Renewal Rolando almaraz Work Phone: [facility] 250 DO Work Phone: Start: 12-01-[address] ADILSON VO Facil ity:H1 Start: 11-24-2021 Transitional care manage srvc 7 day discharge Rolando Olivares Work Phone: [facility] 250 DO Work Phone: Start: 11-08-2021 End: 11-08-2021 ambulatory Angel Kym Other [employer] Other Start: 11-08-2021 Office outpatient ne w 45 minutes Angel Kym [facility] Start: 11-07-2021 End: 11-07-2021 ambulatory Angel Kym Other [facility] [employer] Other Start: 11-07-2021 Telephone encounter Angel Mejía [facility] Start: 10-23-2021 End: 10-24-[address] ROLANDO OLIVARES Facility: Start: 10-02-2021 End: 10-02-2021 ambulatory CLARKE ALLEN Facility:[facility] Start: 10-01-2021 End: 10-01-2021 Emergency department patient visit BRITTNI PAGAN Facility:[facility] Procedures Date Procedure Procedure Detail Performing Clinician Start: 11-26-2023 Arteriovenous fistulization DO Rolando Olivares Work Phone: Start: 10-31-2023 IR Fistulogram/TLA S tent (Left) DO Rolando Olivares Work Phone: Start: 10-02-2023 Plain chest X-ray DO Carl Olivares Work Phone: Start: 09-24-2023 Comprehensive metabo lic panel [employer] SCREED OPERATOR Work Phone: Start: 08-29-2023 Ultrasonography of arteriovenous fistula DO Rolando Olivares Work Phone: Start: 08-20-2023 History of placement of stent for coronary artery disease Status post insertion of drug eluting coronary artery stent Elder Gomez DO Work Phone: Start: 07-02-2023 Ultrasonography of arteriovenous fistula DO Rolando Olivares Work Phone: Start: 06-17-2023 IR Fistulogram/TLA S tent (Left) DO Rolando Olivares Work Phone: Start: 06-13-2023 Ultrasonography of arteriovenous fistula DO Rolando Olivares Work Phone: Start: 04-12-2023 IR Fistulogram/TLA S tent (Left) DO Rolando Olivares Work Phone: Start: 04-10-2023 Ultrasonography of arteriovenous fistula DO Rolando [employer] Work Phone: Start: 02-27-2023 Ultrasonography of arteriovenous fistula DO Rolando Olivares Work Phone: Start: 02-04-2023 CL Stent 1st Vessel RCA JUAN C DO Rolando [employer] Phone: Start: 12-18-2022 Arteriovenous fistulization DO Robyn Gr Work Phone: Start: 12-11-2022 IR Fistulogram/TLA S tent (Left) DO Robyn Gr Work Phone: Start: 12-04-2022 IR Fistulogram/TLA S tent (Left) DO Rolando [facility] Work Phone: Start: 11-28-2022 Ultrasonography of arteriovenous fistula DO [employer] Phone: Start: 10-02-2022 Plain chest X-ray DO Nas Bradley Work Phone: Start: 09-17-2022 Arteriovenous fistulization DO [employer] Phone: Start: 09-05-2022 Ultrasound (US) dopp ler flow mapping of vein of upper limb DO [employer] Phone: Start: 08-13-2022 Plain chest X-ray DO Be [employer] Phone: Start: 08-12-2022 CT of head without contrast DO [employer] Phone: Start: 06-13-2022 SARS-CoV-2, Influenz a & RSV (PCR) DO [employer] Phone: Start: 06-13-2022 Plain chest X-ray DO Be njamin [facility] Work Phone: Start: 06-03-2022 Plain chest X-ray DO Be njamin [employer] [facility] Work Phone: Start: 05-21-2022 Plain chest X-ray DO Be njamin [employer] Phone: Start: 05-21-2022 Blood culture for bacteria, including anaerobic screen DO [employer] Phone: Start: 05-21-2022 SARS Antigen (LFIA) DO [employer] Phone: Start: 05-18-2022 Bone marrow sampling DO [employer] Phone: Start: 05-15-2022 Dual energy X-ray absorptiometry DO Rolando Olivares Work Phone: Start: 04-09-2022 Plain chest X-ray DO Be brayan Olivares Work Phone: Blood culture for bacteria, including anaerobic screen DO Rolando Olivares Work Phone: Cardiac catheterization Benj byron Olivares Work Phone: Depression screening Romain Mendoza Other History of placement of stent for coronary artery disease Status post insertion of drug eluting coronary artery stent Rolando Olivares Work Phone: History of placement of stent for coronary artery disease Status post insertion of drug eluting coronary artery stent Elder Healy Jason Work Phone: History of placement of stent in anterior descending branch of left coronary artery History of placement of stent in LAD coronary artery DO Rolando Olivares Work Phone: LT knee scope Robyn GUERIN Operative procedure on knee Rolando Olivares Work Phone: Placement of stent i n cardiac conduit Robyn GUERIN Surgical procedure o n eye proper Rolando Olivares Work Phone: Vasectomy Rolando Olivares Work Phone: Vasectomy Robyn GUERIN NEGATED: Highlighted row has not occurred! Total colonoscopy Rolando Olivares Work Phone: Plan of Treatment Date Care Activity Detail Author Start: 2045 RSV patients and/or patients aged 60+ years (1 - 1-dose 60+ series) RSV patients and/or patients aged 60+ years (1 - 1-dose 60+ series) [facility] Start: 2035 Zoster Vaccines (1 of 2) Zoster Vaccines (1 of 2) [facility] Start: 09-05-2024 Glaucoma screening Diabetes: Retinopathy Screening [facility] Start: 06-11-2024 End: 06-11-2024 Patient encounter procedure 06/11/2024 9:50 AM EDT Office Visit [place] [id number] [facility] [address] [place] [id number] Elder Gomez, [address] [facility] [address] [place] [address] [place] [address] [facility] Start: 04-19-2024 Influenza vaccination Influenza Vaccine (Season Ended) [facility] Start: 11-26-2023 End: 11-26-2023 [facility] Start: 10-31-2023 [facility] Start: 10-24-2023 End: 10-24-2023 Patient encounter procedure 10/24/2023 3:10 PM EST Office Visit [facility] [address] [facility] [address] [place] [address] David Berg, DPChristiana [address] [facility] [address] [place] [address] [facility] Start: 10-15-2023 End: 10-15-2023 Patient encounter procedure 10/15/2023 1:15 PM EST Office Visit [facility] [address] [place] [address] [place] [address] Angelina Oliver MD [address] [place] [address] [facility] Start: 10-03-[address] [facility] Start: 10-01-2023 Patient referral [facility] Work Phone: Start: 09-30-2023 End: 09-30-2024 MR Shoulder - left WO contrast MR shoulder left wo IV contrast Imaging Routine Internal derangement of left shoulder Expected: 09/30/2023 (Approximate), Expires: 09/30/2024 [facility] Work Phone: Comment on above: Expected: 09/30/2023 (Approximate), Expi res: 09/30/2024 Start: 09-30-2023 End: 09-30-2023 Patient encounter procedure 09/30/2023 1:00 PM EST Office Visit [facility] [address] [facility] [address] [place] [address] Nelida Carrington NP [address] [facility] [address] [place] [address] [facility] Start: 09-05-2023 FUV, Provider: Elder Gomez, Status: Pen, Time: 9:50 AM FUV, Provider: Elder Gomez, Status: Pen, Time: 9:50 AM [facility] 250 DO Work Phone: Start: 08-18-2023 [facility] Start: 08-18-2023 Referral to leasing machine tender [facility] Start: 08-18-2023 Referral to playground aide [facility] Start: 08-18-2023 Hospital admission [facility] Start: 08-18-2023 [facility] Start: 07-02-2023 Ultrasonography of arteriovenous fistula US AV Fistula [facility] Start: 07-02-2023 US AV fistula [facility] Start: 06-17-2023 [facility] Start: 06-13-2023 Ultrasonography of arteriovenous fistula US AV Fistula [facility] Start: 06-13-2023 US AV fistula [facility] Start: 04-19-2023 COVID-19 Vaccine ( season) COVID-19 Vaccine ( season) [facility] Start: 04-12-2023 [facility] Start: 02-26-2023 FUV, Provider: Elder Gomez, Status: Pen, Time: 9:30 AM [facility]UV, Provider: Elder Gomez, Status: Pen, Time: 9:30 AM [facility] DO Work Phone: Start: 02-04-2023 End: 02-04-2023 [facility] Start: 02-04-2023 SURGNON, Provider: Elder Gomez, Status: Pen, Time: 11:00 AM [facility]: Elder Gomez, Status: Pen, Time: 11:00 AM [facility] 250 DO Work Phone: Start: 01-09-2023 [facility] Start: 01-09-2023 Hospital admission [facility] Start: 01-09-2023 Referral to leasing machine tender [facility] Start: 12-18-2022 [facility] Start: 12-18-2022 [facility] Start: 12-17-2022 FUV, Provider: Janine Gonzalez, Status: Pen, Time: 9:45 AM [facility], Provider: Janine Goznalez, Status: Pen, Time: 9:45 AM [facility] 250 DO Work Phone: Start: 12-11-2022 [facility] Start: 12-04-2022 [facility] Start: 11-28-2022 Ultrasonography of arteriovenous fistula US AV Fistula [facility] Start: 11-28-2022 US AV fistula [facility] Start: 11-14-2022 SURGNONUH, Provider: Elder Gomez, Status: Pen, Time: 2:00 PM SURGNON, Provider: Elder Gomez, Status: Pen, Time: 2:00 PM [facility] 250 DO Work Phone: Start: 11-14-2022 CL *Percutaneous Coronary Interven(PCI) (Not Applicable) CL *Percutaneous Coronary Interven(PCI) (Not Applicable) [facility] Start: 10-07-2022 Blood chemistry [facility] Start: 10-07-2022 [facility] Start: 10-06-2022 Blood chemistry [facility] Start: 10-06-2022 [facility] Start: 10-05-2022 Blood chemistry [facility] Start: 10-05-2022 [facility] Start: 10-04-2022 Blood chemistry [facility] Start: 10-04-2022 [facility] Start: 10-04-2022 Creatine kinase [Enzymatic activity/volume] in Serum or Plasma [facility] Start: 10-04-2022 Troponin I.cardiac [Mass/volume] in Serum or Plasma by High sensitivity method [facility] Start: 10-03-2022 Blood chemistry [facility] Start: 10-03-2022 End: 10-03-2022 [facility] Start: 10-03-2022 Hospital admission [facility] Start: 10-03-2022 Referral to leasing machine tender [facility] Start: 10-03-2022 Referral to playground aide [facility] Start: 10-03-2022 [facility] Start: 10-02-2022 Plain chest X-ray XR chest 1V portable [facility] Start: 10-02-2022 XR Chest Single view [facility] Start: 09-17-2022 [facility] Start: 09-17-2022 [facility] Start: 09-05-2022 Ultrasound (US) doppler flow mapping of vein of upper limb US venous mapping BI upper [facility] Start: 09-05-2022 US Upper extremity vein - bilateral [facility] Start: 09-01-2022 [facility] Start: 08-19-2022 DEPRESSION ASSESSMENT DEPRESSION ASSESSMENT [facility] Start: 08-18-2022 Blood chemistry [facility] Start: 08-17-2022 Blood chemistry [facility] Start: 08-17-2022 [facility] Start: 08-16-2022 Blood chemistry [facility] Start: 08-16-2022 [facility] Start: 08-15-2022 Blood chemistry [facility] Start: 08-15-2022 [facility] Start: 08-14-2022 Blood chemistry [facility] Start: 08-14-2022 [facility] Start: 08-13-2022 [facility] Start: 08-13-2022 Hospital admission [facility] Start: 08-13-2022 Referral to playground aide [facility] Start: 08-13-2022 [facility] Start: 08-12-2022 CT of head without contrast CT head/brain wo con [facility] Start: 08-12-2022 CT Unspecified body region WO contrast [facility] Start: 05-18-2022 End: 05-18-2022 [facility] Start: 05-18-2022 Bone marrow sampling [facility] Start: 04-20-2022 [facility] Work Phone: Start: 04-20-2022 Patient encounter procedure Registered Clinical [facility] [place] Start: 04-19-2022 Influenza vaccination INFLUENZA (#1) [facility] Start: 04-09-2022 Plain chest X-ray XR chest 1V portable [facility] Start: 04-09-2022 End: 04-10-2022 Emergency department patient visit Departed [facility] Start: 02-22-2022 FUV, Provider: Elder Gomez, Status: Pen, Time: 11:10 AM -[facility] 250 DO Work Phone: Start: 08-19-2021 DEPRESSION ASSESSMENT DEPRESSION ASSESSMENT [facility] Start: 2020 LIPID SCREEN LIPID SCREEN [facility] Start: 2007 DTaP/Tdap/Td Vaccines (1 - Tdap) DTaP/Tdap/Td Vaccines (1 - Tdap) [facility] Start: 2004 Hepatitis B Vaccines (1 of 3 - 19+ 3-dose series) Hepatitis B Vaccines (1 of 3 - 19+ 3-dose series) [facility] Start: 2004 Urine microalbumin profile DTAP,TDAP,TD (1 - Tdap) [facility] Start: 2004 Urine screening for protein Diabetes: Urine Protein Screening [facility] Start: 2003 HEPATITIS C SCREENING HEPATITIS C SCREENING [facility] Start: 2003 Hepatitis C screening Hepatitis C Screening [facility] Start: 2003 HIV SCREENING HIV SCREENING [facility] Start: 1998 Varicella vaccination Varicella Vaccines (1 of 2 - 13+ 2-dose series) [facility] Start: 1995 Diabetic foot examination Diabetes: Foot Exam [facility] Start: 1991 PNEUMOCOCCAL (1 - PCV) PNEUMOCOCCAL (1 - PCV) [facility] Start: 1991 Pneumococcal Vaccine: Pediatrics (0 to 5 Years) and At-Risk Patients (6 to 64 Years) (1 of 2 - PCV) Pneumococcal Vaccine: Pediatrics (0 to 5 Years) and At-Risk Patients (6 to 64 Years) (1 of 2 - PCV) [facility] Start: 1986 MMR Vaccines (1 of 1 - Standard series) MMR Vaccines (1 of 1 - Standard series) [facility] Start: 1985 COVID-19 VACCINE (#1) COVID-19 VACCINE (#1) [facility] Start: 1985 Creatinine measurement Creatinine Level [facility] Start: 1985 Hemoglobin A1c measurement Diabetes: Hemoglobin A1C [facility] Start: 1985 HEPATITIS B (1 of 3 - 3-dose series) HEPATITIS B (1 of 3 - 3-dose series) [facility] Start: 1985 HIV screening HIV Screening [facility] Start: 1985 Lipid panel Lipid Panel [facility] Start: 1985 Medicare Annual Wellness Visit Medicare Annual Wellness Visit (AWV) [facility] Start: 1985 Potassium measurement Potassium Level [facility] Anion gap measurement [facility] Basophils [#/volume] in Blood by Automated count [facility] Basophils/100 leukoc ytes in Blood by Automated count [facility] Blood chemistry [facility] Bone marrow sampling [facility] Work Phone: Calcium [Mass/volume ] in Serum or Plasma [facility] Carbon dioxide, tota l [Moles/volume] in Serum or Plasma [facility] Chloride [Moles/volu me] in Serum or Plasma [facility] Comprehensive metabo lic 1999 panel - Serum or Plasma [facility] Comprehensive metabo lic 1999 panel - Serum or Plasma [facility] Comprehensive metabo lic 1999 panel - Serum or Plasma [facility] Creatine kinase [Enzymatic activity/volume] in Serum or Plasma [facility] Creatine kinase [Enzymatic activity/volume] in Serum or Plasma [facility] Creatine kinase MB isoenzyme/total creatine kinase ratio measurement [facility] Creatine kinase MB isoenzyme/total creatine kinase ratio measurement [facility] Creatine kinase.MB [Mass/volume] in Serum or Plasma [facility] Creatine kinase.MB [Mass/volume] in Serum or Plasma [facility] Creatinine and Glome rular filtration rate.predicted panel - Serum, Plasma or Blood [facility] CT Abdomen and Pelvi s WO contrast [facility] DXA Skeletal system. axial Views for bone density [facility] Work Phone: Eosinophils [#/volum e] in Blood [facility] Eosinophils/100 leukocytes in Blood by Automated count [facility] Erythrocyte distribu tion width [Ratio] by Automated count [facility] Erythrocytes [#/volu me] in Blood [facility] Glucose [Mass/volume ] in Serum or Plasma [facility] Hematocrit [Volume Fraction] of Blood [facility] Hemoglobin [Mass/vol ume] in Blood [facility] Hepatitis A virus antibody, IgM type [facility] Hepatitis B core ant ibody measurement, IgM type [facility] Hepatitis B virus ramon rface Ag [Presence] in Serum or Plasma by Immunoassay [facility] Hepatitis C virus Ig G Ab [Presence] in Serum or Plasma by Immunoassay [facility] Hepatitis C virus RN A [log units/volume] (viral load) in Serum or Plasma by HAO with probe detection [facility] Hepatitis C virus RN A [Units/volume] (viral load) in Serum or Plasma by HAO with probe detection [facility] Leukocytes [#/volume ] corrected for nucleated erythrocytes in Blood by Automated coun [facility] Leukocytes [#/volume ] in Blood [facility] Lymphocytes [#/volum e] in Blood by Automated count [facility] Lymphocytes/100 leukocytes in Blood by Automated count [facility] MCH [Entitic mass] b y Automated count [facility] MCHC [Mass/volume] b y Automated count [facility] MCV [Entitic volume] by Automated count [facility] Measurement of renal function [facility] Monocytes [#/volume] in Blood by Automated count [facility] Monocytes/100 leukoc ytes in Blood by Automated count [facility] Neutrophils [#/volum e] in Blood by Automated count [facility] Neutrophils/100 leukocytes in Blood by Automated count [facility] Nucleated erythrocyt es [Presence] in Blood by Automated count [facility] Patient Education [facility] Work Phone: Patient referral [facility] Work Phone: Platelet mean volume [Entitic volume] in Blood by Automated count [facility] Platelets [#/volume] in Blood [facility] Potassium [Moles/vol ume] in Serum or Plasma [facility] Sodium [Moles/volume ] in Serum or Plasma [facility] Troponin I.cardiac [Mass/volume] in Serum or Plasma by High sensitivity method [facility] Troponin I.cardiac [Mass/volume] in Serum or Plasma by High sensitivity method [facility] Urea nitrogen [Mass/volume] in Serum or Plasma [facility] URINALYSIS, REFLEX MICROSCOPIC URINALYSIS, REFLEX MICROSCOPIC Lab Routine Screening for genitourinary condition Ordered: 09/05/[address] [facility] Work Phone: Comment on above: Ordered: 09/05/2022 [facility] Payers Date Payer Category Payer Medicare [id number] 2023 Medicare [id number] 2.1 [id number] 2022 Medicare [id number] 2.16. 840.1.243720.19 2022 Self-pay [id number] 2021 Medicaid [id number] 2021 Unknown 1985 Unknown [id number] 2.16.84 0.1.185455.3.579.2.593 1985 Unknown [id number] 2.16.84 0.1.795869.3.579.2.593 1985 Unknown [id number] 2.16.84 0.1.336184.3.579.2.593 1985 Unknown [id number] 2.16. 840.1.301455.3.579.2.356 1985 Unknown [id number] 2.16. 840.1.016150.3.579.2.356 1985 Unknown [id number] 2.16. 840.1.307064.3.579.2.356 1985 Unknown [id number] 2.16. 840.1.171027.3.579.2.356 1985 Unknown [id number] 2.16. 840.1.024321.3.579.2. 1985 Unknown [id number] 2.16. 840.1.010431.3.579.2.356 1985 Unknown [id number] 2.16. 840.1.735850.3.579.2.356 1985 Unknown [id number] 2.16. 840.1.361450.3.579.2.356 1985 Unknown [id number] 2.16. 840.1.735782.3.579.2.356 1985 Unknown [id number] 2.16.8 40.1.273276.3.579.2.727 1985 Unknown [id number] 2.16.8 40.1.040263.3.579.2.1244 1985 Unknown [id number] 2.16.84 0.1.785924.3.579.2.1259 1985 Unknown [id number] 2.16.84 0.1.054018.3.579.2.1259 1985 Unknown [id number] 2.16.84 0.1.002977.3.579.2.1259 1985 Unknown [id number] 2.16.84 0.1.455163.3.579.2.1258 1985 Unknown [id number] 2.16.84 0.1.242559.3.579.2.1258 1985 Unknown [id number] 2.16.84 0.1.624289.3.579.2.1258 1985 Unknown [id number] 2.16.84 0.1.961183.3.579.2.1258 1985 Unknown [id number] 2.16.84 0.1.610097.3.579.2.1258 1985 Unknown [id number] 2.16.84 0.1.547567.3.579.2.1258 1985 Unknown [id number] 2.16.84 0.1.746789.3.579.2.1258 1985 Unknown [id number] 2.16.840 .1.627225.3.579.2.1258 1985 Unknown [id number] 2.16.840 .1.419175.3.579.2.1258 1959 [employer] Blue Shield [id number] 1959 Medicaid [id number] 1959 Self-pay [id number] Medicare Medicare [id number] Unknown [id number] 2.16.8 40.1.462161.3.579.2.531 Unknown [id number] 2.16.8 40.1.505774.3.579.2.531 Unknown [id number] 2.16.8 40.1.973770.3.579.2.531 Unknown [id number] 2.16.8 40.1.322502.3.579.2.531 Unknown [id number] 2.16.8 40.1.479469.3.579.2.531 Unknown [id number] 2.16.8 40.1.807481.3.579.2.531 Unknown [id number] 2.16.8 40.1.155588.3.579.2.531 Unknown [id number] 2.16.8 40.1.481080.3.579.2.531 Unknown [id number] 2.16.8 40.1.707176.3.579.2.531 Unknown [id number] 2.16.8 40.1.575271.3.579.2.531 Unknown [id number] 2.16.8 40.1.850454.3.579.2.531 Unknown [id number] 2.16.8 40.1.922766.3.579.2.531 Unknown [id number] 2.16.8 40.1.366860.3.579.2.531 Unknown [id number] 2.16.8 40.1.802386.3.579.2.531 Unknown [id number] 2.16.8 40.1.877507.3.579.2.531 Social History Date Type Detail Facility Start: 08-15-2023 End: 08-20-2023 Current every day smoker Current every day smoker [employer] Other Comment on above: 3 cigs daily; 1-2 Packs of cigaret josé daily; medical; 1 Pack of cigarettes daily; Start: 08-20-2023 End: 09-09-2023 Sex Assigned At [facility] Start: 11-13-2021 End: 11-26-2023 Tobacco smoking status NHIS Smoker (finding) [facility] Start: 1985 Sex Assigned At Male F [facility] Start: 10-02-2021 End: 12-03-2023 Tobacco smoking status NHIS Smokes tobacco daily [facility] Start: 10-02-2021 End: 12-03-2023 Tobacco use and exposure Smokeless tobacco non-user [facility] Start: 10-02-2021 Alcohol intake Ex-drinker (finding) [facility] Start: 1985 Sex Assigned At Not on file C [facility] Start: 08-13-2022 End: 09-17-2022 Tobacco smoking status NHIS Current Heavy tobacco smoker [facility] Start: 08-29-2022 Tobacco smoking status Never [facility] History of tobacco use Cigarette Smoker [facility] Start: 09-24-2023 End: 09-30-2023 Alcohol intake [facility] Start: 12-03-2023 Alcoholic beverage intake Lifetime non-drinker (finding) [facility] Work Phone: Start: 11-23-2023 End: 12-03-2023 Exposure to SARS-CoV-2 (event) Not sure [facility] Medical Equipment Procedure Code Equipment Code Equipment Origin al Text Equipment Identifier Dates Fistulogram Non-neurovascula r embolization coil [id number] FDA Start: 06-17-2023 Fistulogram Non-neurovascula r embolization coil ()[id number] FDA Start: 06-17-2023 Fistulogram Non-neurovascula r embolization coil ()[id number] FDA Start: 06-17-2023 Fistulogram Non-neurovascula r embolization coil ()[id number] FDA Start: 06-17-2023 Fistulogram Non-neurovascula r embolization coil ()[id number] FDA Start: 06-17-2023 Creation or revision of arteriovenous fistula Cardiovascular patch, animal-derived ()[id number] 2005-11 FDA Start: 11-26-2023 Drug-eluting cor onary artery stent, mda-pabrgjgswrakl-bes ymer-coated ()[id number] FDA Start: 11-16-2021 CL STENT SHARMAINE FRONTIER 3.0 X 38 FDA Start: 02-04-2023 CL STENT SHARMAINE FRONTIER 3.5 X 12 FDA Start: 02-04-2023 CL STENT SHARMAINE FRONTIER 3.0 X 38 FDA Start: 02-04-2023 CL STENT SHARMAINE FRONTIER 3.5 X 12 FDA Start: 02-04-2023 CL STENT SHARMAINE FRONTIER 3.0 X 38 FDA Start: 02-04-2023 CL STENT SHARMAINE FRONTIER 3.5 X 12 FDA Start: 02-04-2023 CL STENT SHARMAINE FRONTIER 3.0 X 38 FDA Start: 02-04-2023 CL STENT SHARMAINE FRONTIER 3.5 X 12 FDA Start: 02-04-2023 CL STENT SHARMAINE FRONTIER 3.0 X 38 FDA Start: 02-04-2023 CL STENT SHARMAINE FRONTIER 3.5 X 12 FDA Start: 02-04-2023 CL STENT SHARMAINE FRONTIER 3.0 X 38 FDA Start: 02-04-2023 CL STENT SHARMAINE FRONTIER 3.5 X 12 FDA Start: 02-04-2023 CL STENT SHARMAINE FRONTIER 3.0 X 38 FDA Start: 02-04-2023 CL STENT SHARMAINE FRONTIER 3.5 X 12 FDA Start: 02-04-2023 [id number] Start: 08-26-2023 CL STENT SHARMAINE FRONTIER 3.0 X 38 FDA Start: 02-04-2023 CL STENT SHARMAINE FRONTIER 3.5 X 12 FDA Start: 02-04-2023 CL STENT SHARMAINE FRONTIER 3.0 X 38 FDA Start: 02-04-2023 CL STENT SHARMAINE FRONTIER 3.5 X 12 FDA Start: 02-04-2023 CL STENT SHARMAINE FRONTIER 3.0 X 38 FDA Start: 02-04-2023 CL STENT SHARMAINE FRONTIER 3.5 X 12 FDA Start: 02-04-2023 CL STENT SHARMAINE FRONTIER 3.0 X 38 FDA Start: 02-04-2023 CL STENT SHARMAINE FRONTIER 3.5 X 12 FDA Start: 02-04-2023 CL STENT SHARMAINE FRONTIER 3.0 X 38 FDA Start: 02-04-2023 CL STENT SHARMAINE FRONTIER 3.5 X 12 FDA Start: 02-04-2023 CL STENT SHARMAINE FRONTIER 3.0 X 38 FDA Start: 02-04-2023 CL STENT SHARMAINE FRONTIER 3.5 X 12 FDA Start: 02-04-2023 CL STENT SHARMAINE FRONTIER 3.0 X 38 FDA Start: 02-04-2023 CL STENT SHARMAINE FRONTIER 3.5 X 12 FDA Start: 02-04-2023 Goals Date Patient Goal Desired Activity /State Functional Status Date Assessment Result Facility 08-18-2023 Functional status Patient at Baseline [facility] Work Phone: 02-05-2023 Functional status Patient at Baseline [facility] Work Phone: 01-09-2023 Functional status Patient at Baseline [facility] Work Phone: 10-03-2022 Functional status Patient at Baseline [facility] Work Phone: 08-29-2022 Functional Status N/A [facility] 08-13-2022 Functional status Patient at Baseline [facility] Work Phone: Mental Status Date Assessment Result Facility 08-18-2023 Cognitive function Cognitive Sta tus Patient at Baseline [facility] Work Phone: 02-05-2023 Cognitive function Cognitive Sta tus Patient at Baseline [facility] Work Phone: 01-09-2023 Cognitive function Cognitive Sta tus Patient at Baseline [facility] Work Phone: 10-03-2022 Cognitive function Cognitive Sta tus Patient at Baseline [facility] Work Phone: 08-13-2022 Cognitive function Cognitive Sta tus Patient at Baseline [facility] Work Phone: Clinical Notes 10-02-2021 to 12-03-2023 Elder Gomez DO - 12/03/2023 2:50 PM EDTPatient Amrik Carrington NP - 09/30/2023 1:00 PM EST Note Date & Type Note Facility 12-03-2023 History of Present illness Narrative Subjective Yoel Werner is a 38 y.o. male Chief Complaint Follow-up 38-year-old type I diabetic returns for follow-up and is doing well without any cardiovascular events, complaints or nitrate usage, hospitalizations or heart failure now with preserved and improved left ventricular function. 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 He has ongoing tobacco abuse and we have counseled him for 3 to 5 minutes today on importance of tobacco cessation. He has end-stage renal disease currently on dialytic therapy with revision of the left cephalic fistula recently. He is seeking out eventual renal transplantation and will eventually need preoperative clearance for that. We have already cleared him for a vitrectomy as well as for tooth extraction with denture placement. He remains on DAPT, high-dose statin and antihypertensive therapies as noted Recommendations, follow-up in 6 months with active counseling and continued ischemic surveillance Review of Systems Cardiovascular: Positive for palpitations. All other systems reviewed and are negative. Vitals: 12/03/23 1531 BP: 156/90 BP Location: Right arm Patient Position: Sitting Pulse: 76 Weight: 76.7 kg (169 lb) Height: 1.829 m (6') Objective Physical Exam Constitutional: Appearance: Normal appearance. HENT: Nose: Nose normal. Neck: Vascular: No carotid bruit. Cardiovascular: Rate and Rhythm: Normal rate. Pulses: Normal pulses. Heart sounds: Normal heart sounds. Pulmonary: Effort: Pulmonary effort is normal. Abdominal: General: Bowel sounds are normal. Palpations: Abdomen is soft. Musculoskeletal: General: Normal range of motion. Cervical back: Normal range of motion. Right lower leg: No edema. Left lower leg: No edema. Skin: General: Skin is warm and dry. Neurological: General: No focal deficit present. Mental Status: He is alert. Psychiatric: Mood and Affect: Mood normal. Behavior: Behavior normal. Thought Content: Thought content normal. Judgment: Judgment normal. Allergies Patient has no known allergies. Current Medications Current Outpatient Medications: amLODIPine (Norvasc) 5 mg tablet, Take 1 tablet (5 mg) by mouth once daily., Disp: , Rfl: aspirin 81 mg chewable tablet, TAKE 1 TABLET BY MOUTH EVERY DAY, Disp: 90 tablet, Rfl: 3 atorvastatin (Lipitor) 80 mg tablet, Take 1 tablet (80 mg) by mouth once daily at bedtime., Disp: , Rfl: calcium acetate (Phoslo) 667 mg capsule, Take 2 capsules (1,334 mg) by mouth 3 times a day., Disp: , Rfl: carvedilol (Coreg) 25 mg tablet, Take 1 tablet (25 mg) by mouth 2 times a day., Disp: , Rfl: clopidogrel (Plavix) 75 mg tablet, Take 1 tablet (75 mg) by mouth once daily., Disp: , Rfl: epoetin alexus (EPOGEN INJ), Inject 8,000 Units under the skin 3 times a week., Disp: , Rfl: escitalopram (Lexapro) 10 mg tablet, Take 1 tablet (10 mg) by mouth once daily., Disp: , Rfl: famotidine (Pepcid) 20 mg tablet, Take 1 tablet (20 mg) by mouth once daily at bedtime., Disp: , Rfl: ferric gluconate (Ferrlecit) 62.5 mg/5 mL injection, Infuse 5 mL (62.5 mg) into a venous catheter every other day., Disp: , Rfl: furosemide (Lasix) 40 mg tablet, Take 1 tablet (40 mg) by mouth once daily., Disp: , Rfl: heparin sodium,porcine/PF (heparin, porcine, PF,) 1,000 unit/mL solution, Infuse 1 mL (1,000 Units) into a venous catheter 3 times a week., Disp: , Rfl: HumaLOG KwikPen Insulin 100 unit/mL injection, Inject under the skin., Disp: , Rfl: hydrALAZINE (Apresoline) 50 mg tablet, Take 1 tablet (50 mg) by mouth once daily., Disp: , Rfl: isosorbide mononitrate ER (Imdur) 60 mg 24 hr tablet, Take 1 tablet (60 mg) by mouth 2 times a day., Disp: , Rfl: loratadine (Claritin) 10 mg tablet, Take 1 tablet (10 mg) by mouth every other day., Disp: , Rfl: nitroglycerin (Nitrostat) 0.4 mg SL tablet, Place 1 tablet (0.4 mg) under the tongue every 5 minutes if needed., Disp: , Rfl: omeprazole (PriLOSEC) [address] capsule, Take 1 capsule (20 mg) by mouth once daily., Disp: , Rfl: paricalcitol (Zemplar) 1 mcg capsule, Take 3 capsules (3 mcg) by mouth 3 times a week., Disp: , Rfl: Assessment/Plan 1. ASHD (arteriosclerotic heart disease) 2. Essential hypertension, benign 3. Mixed hyperlipidemia 4. History of VT (myocardial infarction) 5. Status post insertion of drug eluting coronary artery stent 6. ESRD (end stage renal disease) on dialysis (Multi) 7. Current every day smoker 8. Type 2 diabetes mellitus with chronic kidney disease on chronic dialysis, with long-term current use of insulin (Multi) 9. BMI 22.0-22.9, adult Scribe Attestation By signing my name below, IAlana LPN , Scribe attest that this documentation has been prepared under the direction and in the presence of Elder Gomez DO. Provider Attestation - Scribe documentation All medical record entries made by the Scribe were at my direction and personally dictated by me. I have reviewed the chart and agree that the record accurately reflects my personal performance of the history, physical exam, discussion and plan. documented in this encounter [facility] Work Phone: 12-03-2023 Instructions Alana Pace LPN - 12/03/2023 2:50 PM EDT Please bring all medicines, vitamins, and herbal supplements with you when you come to the office. Prescriptions will not be filled unless you are compliant with your follow up appointments or have a follow up appointment scheduled as per instruction of your physician. Refills should be requested at the time of your visit. documented in this encounter [facility] Work Phone: 11-26-2023 Procedure note [facility] 10-31-2023 Procedure note [facility] 09-30-2023 History of Present illness Narrative Subjective Patient ID: Yoel Werner is a 38 y.o. male. LT Shoulder 3 weeks s/p subacromial depo medrol injection (09/09/23)/voltaren geland AAOS exercises with 0% improvement Pain x years. 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 He has had LT shoulder pain on and off since this. Constant pain diffuse in shoulder. Pain occas radiates down bicep and into elbow and sometimes into wrist. Limited ROM. Pain at rest 3/10. Pain at worst 10/10 with certain movements. Takes TYL prn. Denies ice, heat, and creams. Admits some tingling in elbow that goes into the wrist at times, denies N/T in the fingers. Admits waking at night. Admits occas cracking and popping. Notes he has trouble gripping and has dropped items before. Notes he uses medical marijuana and this is the only thing that gives him relief. Notes he had dialysis this morning and is dizzy. He has end stage renal failure. Began dialysis February 2023 [place]: XR NOMS 09/09/23, medical marijuana, TYL, subacromial depo medrol injection 09/09/23, AAOS exercises, voltaren gel Fistula LT fa Objective Left Shoulder Exam Range of Motion Active abduction: 140 Muscle Strength Abduction: 4-/5 Tests Joy test: positive Drop arm: negative Shoulder Musculoskeletal Exam Palpation Left Crepitus: mild Tenderness: present Anterior shoulder: moderate Trapezius: mild Lateral arm: mild Range of Motion Left Active ROM: pain. Active forward elevation: 140. Shoulder active abduction: 140. Active external rotation at side: 30. Internal rotation: side. Strength Left Abduction: 4-/5. Abduction is affected by pain. Special Tests Left Rotator Cuff Signs Joy test: positive Lift-off sign: positive Drop arm test: negative Biceps/umm Signs Speed's test: positive AC Joint Signs Active horizontal adduction pain: positive Assessment/Plan Encounter Diagnoses: ICD-10-CM 1. Left shoulder pain, unspecified chronicity M25.512 2. Impingement of left shoulder M25.812 3. Internal derangement of left shoulder M24.812 discussion of due to failure of conservative treatment would recommend an MRI of the left shoulder without contrast without contrast, activities as tolerated, f/u s/p MRI to be done at [facility] documented in this encounter [facility] 09-05-2023 Hospital Discharge instructions Follow Up Care 09/05/2023 13:18:24 With:TRUONG MOLINA, Robyn Tovar, URL Address: [facility] [address], [place] [address]- [phone] When: Unknown [facility] 08-29-2023 Evaluation note Encounter Date Diagnosis Assessment Notes Aug, AV fistula (ICD-10 - I77.0) I did review the fistula duplex today. Flow velocities are all good. The depth is good. No stenoses or narrowing identified. I do not see any indication for a fistulogram at this time. As always, I would prefer for dialysis access center use ultrasound guidance, but this is never happened yet in my career so I am not hopeful that is going to start now. It is unfortunate because I use ultrasound guidance every time I accessed the fistula. It would reduce complication rates, safe time and save money in the long run. I will see the patient as needed in the future. [employer] Other 01-08-2024 Evaluation note* Encounter Date Diagnosis Assessment Notes Treatment Notes Treatment Clinical Notes Aug, Diabetes mellitus with chronic kidney disease (ICD-10 - E11.22) [facility] [employer] Other 12-31-2023 Consult note Author Elder Stewart [facility] August 18, 2023 11:30am Note Date/Time August 18, 2023 11:30am [facility] [address] [place] [address] Cardiology Consult Note Signed Patient: Yoel Werner MR#: [id number] : 1985 Acct:[id number] Age/Sex: 38 / M Adm Date: 3 Loc: 3T Room: [address] [place] [address] Type: ADM INOo Attending Dr: Jorge Mederos DO Copies to: Rolando Olivares,DO Elder Oleary MD~ Cardiology HPI History of Present Illness Consult Date: 08/18/23 Reason for Consult: Chest pain HPI: Mr. Werner is a 38 year old male seen for the above He is individual with a diagnosis of coronary disease made last year. He presented with suspicious symptomatology but because of advanced renal insufficiency had stress testing first. It demonstrated significant ischemia shade single vessel distribution specifically the anterior descending artery and thereafter the patient underwent guided angiographic evaluation and intervention without significant renal injury. He has done well since. Subsequently he has developed worsening renal insufficiency is now on dialysis. He presented yesterday to [facility] with anginal type discomfort. He states it came on with activity. He took a nitroglycerin and experienced orthostatic hypotension and syncope. Upon presentation he was hypertensive again. The patient is on appropriate therapy. He is on beta-blockers and isosorbide mononitrate. We discussed ranolazine but after I reviewed the contraindicationsit is not usable in somebody with renal failure and because of this I believe that our focus should be on rate control, preload reduction, and probably afterload reduction as well. I note that he is somewhat hypertensive and it maybenefit him to have some mild to modest addition of an afterload reducing agent such as amlodipine. I reviewed his history in the chart. He consistently has elevated troponin similar to these troponins. This degree of troponin elevation is not suggestiveor consistent with acute coronary syndrome ischemia or myocardial injury and because of this I believe it is inconsequential and does not suggest active disease. Accordingly I believe he can be discharged and I expressed this to himand he is happy to be discharged based upon my assessment and explanation. Review of Systems Review of Systems All other systems reviewed & are negative unless noted below or in HPI Constitutional Constitutional: Reports system reviewed and no additional complaints, except as documented Eyes Eyes: Reports system reviewed and no additional complaints, except as documented ENT Ears, Nose, Mouth, and Throat: Reports system reviewed and no additional complaints, except as documented Cardiovascular Cardiovascular: Reports as per HPI Respiratory Respiratory: Reports system reviewed and no [...] complaints, except as documented Psychiatric Psychiatric: Reports system reviewed and no additional complaints, except as documented Endocrine Endocrine: Reports system reviewed and no additional complaints, except as documented Hematologic/Lymphatic Hematologic/Lymphatic: Reports system reviewed and no additional complaints, except as documented Allergic/Immunologic Allergic/Immunologic: Reports system reviewed and no additional complaints, except as documented [facility] Medical History Anxiety Asthmatic bronchitis , chronic AV fistula left arm CAD (coronary artery disease) CHF (congestive heart failure) COVID history of Depression Diabetic retinopathy ESRD (end stage renal disease) on dialysis History of blood transfusion 2020 History of myocardial infarction 2021 Hypercholesterolemia MGUS (monoclonal gammopathy of unknown significance) PTSD (post-traumatic stress disorder) Smoker Surgical History H/O eye surgery left repair retina History of bone marrow biopsy Hx of knee surgery scope at age 17 Hx of vasectomy 7yrs ago Family History Mother Liver disease Diabetes Father Hypertension IBS (irritable bowel syndrome) Stroke Diverticulitis Social History Smoking Status: Current every day smoker Tobacco Type: cigarettes Substance Use Type: Marijuana Substance Abuse Comment: MEDICALLY, has not used in a few months Social History Comments: lives with dad Meds Medications and Allergies Allergies No Known Allergies Allergy (Verified 06/17/23 12:17) Home Medications escitalopram oxalate 10 mg tablet 10 mg PO QHS 11/13/21 [History Confirmed 06/17/23] famotidine 20 mg tablet 40 mg PO QHS 11/13/21 [History Confirmed 06/17/23] atorvastatin 80 mg tablet 80 mg PO QPM 30 days #30 tabs 11/17/21 [Rx Confirmed 06/17/23] nitroglycerin 0.4 mg sublingual tablet 0.4 mg sublingual Q5MIN.X3 PRN Chest Pain30 days #25 tabs 11/17/21 [Rx Confirmed 06/17/23] epoetin alexus-epbx 20,000 unit/mL injection solution (Retacrit) 20,000 unit subcut QMONTH 04/09/22 [History Confirmed 06/17/23] omeprazole 40 mg capsule,delayed release 40 mg PO QAM 05/09/22 [History Confirmed 06/17/23] insulin lispro 100 unit/mL subcutaneous solution (Humalog U-100 Insulin) 1 sliding scale dose subcut USEASDIRECTD 05/29/22 [History Confirmed 06/17/23] aspirin 81 mg chewable tablet (Children's Aspirin) 81 mg PO QAM 09/10/22 [History Confirmed 06/17/23] clopidogrel 75 mg tablet (Plavix) 75 mg PO QAM 09/10/22 [History Confirmed 06/17/23] furosemide 40 mg tablet 40 mg PO QAM 09/10/22 [History Confirmed 06/17/23] isosorbide mononitrate 60 mg tablet,extended release 24 hr 60 mg PO QHS 11/12/22[History Confirmed 06/17/23] carvedilol 25 mg tablet (Coreg) 25 mg PO BID #60 tabs 01/09/23 [Rx Confirmed 06/17/23] loratadine 10 mg tablet 10 mg PO DIRECTED 01/09/23 [History Confirmed 06/17/23] calcium acetate 667 mg tablet 667 mg PO DIRECTED 03/26/23 [History Confirmed 06/17/23] hydralazine 50 mg tablet 50 mg PO QHS 04/12/23 [History Confirmed 06/17/23] insulin glargine 100 unit/mL (3 mL) subcutaneous pen (Lantus Solostar U-100 Insulin) 10 unit subcut DAILY 04/12/23 [History Confirmed 06/17/23] Exam Physical Exam Vital Signs: Temp Pulse Resp BP Pulse Ox O2 Del Method 97.7 F 59 L 16 171/80 H 98 Room Air 08/18/23 05:06 08/18/23 05:06 08/18/23 05:06 08/18/23 05:06 08/18/23 05:06 08/18/23 05:27 HEENT Head: normal to inspection Ears: hearing grossly normal bilaterally Nose: external nose normal and nares normal Face and sinus: normal facial exam Mouth: oral mucosae normal and tongue normal Eyes Conjunctivae: conjunctivae normal Sclera: sclerae normal Neck Neck: normal visual inspection Carotids: normal carotid upstroke Lymphatic: no lymphadenopathy noted Chest Chest palpation & inspection: normal inspection of the chest Resp Effort & Inspection: normal respiratory effort Auscultation: clear to auscultation bilaterally Cardio Rate: regular rate Rhythm: regular rhythm Heart Sounds: S1 normal and S2 normal GI Inspection: normal to inspection Palpation: soft Skin General: no rashes or lesions noted Neuro General: patient alert, patient awake and patient oriented x3 Cognition: normal cognition Motor: muscle tone normal throughout Sensory Exam: no sensory deficits noted Results Labs 08/18/23 07:12 08/18/23 07:12 Lab results: Cardiac Enzymes 08/18/23 Range/Units 07:12 AST 13 (13-39) U/L CBC 08/18/23 Range/Units 07:12 RBC 3.81 L (3.90-5.60) X10E6/uL Hgb 12.0 L (13.0-17.0) g/dL Hct 34.4 L (38.8-50.0) % Plt Count 99 L (150-450) x10E3/uL Comprehensive Metabolic Panel 08/18/23 Range/Units 07:12 Sodium 132 L (136-145) mmol/L Potassium 4.0 (3.5-5.1) mmol/L Chloride 98 (98-107) mmol/L Carbon Dioxide 26.0 (21.0-31.0) mmol/L BUN 40 H (7-25) mg/dL Creatinine 6.43 H (0.70-1.30) mg/dL Glucose 97 (70-100) mg/dL Calcium 8.6 (8.6-10.3) mg/dL AST 13 (13-39) U/L ALT 12 (7-52) U/L Alkaline Phosphatase 61 (34-104) U/L Total Protein 6.2 L (6.4-8.9) gm/dL Albumin 3.6 (3.5-5.7) gm/dL Intake and Output 08/17/23 08/18/23 08/18/23 23:59 07:59 15:59 Other: # Unmeasured Voids 1 Weight 71.6 kg Date of Last Bowel Movement 08/15/23 Patient Weight 08/18/23 23:59 Weight 71.6 kg Lab 08/18/23 07:12 PT 12.0 INR 1.1 APTT 37.6 H A&P - Cardiology (1) CAD (coronary artery disease): Assessment/Problem Details: EKGPatient's coronary disease appears stable. He has no changes to suggest infarct and his troponin elevation is actually his baseline hence unchanged frombefore. Code(s): I25.10 - Atherosclerotic heart disease of [place] coronary artery without angina pectoris (2) Chest pain, rule out acute myocardial infarction: Assessment/Problem Details: Chest pain may have been noncardiac but the possibility of anginal also exists. He is already on isosorbide mononitrate and beta-blockers. I believe the addition of amlodipine may prove beneficial at reducing afterload hence myocardial oxygen consumption and demand. This in turn will reduce the propensity to anginal discomfort Code(s): R07.9 - Chest pain, unspecified Plan Add amlodipine 2.5 mg a day. Other medicines as before. Patient is otherwise stable and suitable for discharge. Documented By: Elder Stewart MD [id number] Signed By: <Electronically signed by MD Elder Stewart> 08/18/23 1130 [facility] Work Phone: 1(987) 542-545412-31-2023 History and physical note Author Law Cano [facility] August 18, 2023 6:58am Note Date/Time August 18, 2023 5:48am [facility] [address] [place] [address] Hospitalist H&P Signed Patient: Yoel Werner MR#: [id number] : 1985 Acct:[id number] Age/Sex: 38 / M Adm Date: 3 Loc: Room: [address] [place] [address] Type: ADM INOo Attending Dr: Law Cano MD Copies to: DO Law Leblanc MD~ HPI DATE OF EXAMINATION: 08/18/23 HISTORY OF PRESENT ILLNESS: This is a pleasant 38M with PMH of HTN, DM, HLD, CAD s/p stenting, HF, ESRD on HD, GERD, anxiety who presented with chest pain to [facility] () ER and transferred for the evaluation and treatment of suspected ACS The patient has been experiencing left-sided chest pain since yesterday. The pain is constant, fluctuating in severity, and radiates to his left arm. The pain is associated with diaphoresis, nausea, and vomiting, resulting in two instances of non-bloody emesis. He denies any shortness of breath. Also, After experiencing the chest pain, he took nitroglycerin and subsequently experienced a brief syncopal episode. His father, who was with him at the time and witnessedthe event, confirmed that he did not hit his head. The patient underwent hemodialysis on Saturday. In January, he had a left heart catheterization during which a PCI was performed on the proximal/mid LAD artery, with the placement of two drug-eluting stents . ROS: [employer] reviewed with the patient, all negative except what stated above Assessment And Plan Chest Pain - rule out ACS he still has chest pain but better. The patient presents with chest pain to . The characteristic of the pain is more consistent with possible Angina Troponin X3 at in the 50s is not elevated at ; however, he continue to have chest pain so he was sent to evaluation Serial EKGs at (i personally reviewed it) shows minimal ST depression in inferior lead but no significant acute ST changes Last Echocardiogram shows EF 65%, Mild diastolic dysfunction Nitroglycerin prn/Consider drip Morphine prn Telemetry Antiplatelet: Aspirin and plavix Beta brittany therapy Repeat Troponin 8 am EKG Cardiology consult DM blood sugars were reviewed carbohydrate controlled diet. basal insulin hypoglycemia protocol. ESRD Nephrology was consulted for the management of dialysis and ESRD complication Chronic diseases:?Unless mentioned Above, Essential home medications have been continued.? DVT Px:?Addressed Plan of care Discussed with:?the medical team, the patient PMFSH Medical History Anxiety Asthmatic bronchitis , chronic AV fistula left arm CAD (coronary artery disease) CHF (congestive heart failure) COVID history of Depression Diabetic retinopathy ESRD (end stage renal disease) on dialysis History of blood transfusion 2020 History of myocardial infarction 2021 Hypercholesterolemia MGUS (monoclonal gammopathy of unknown significance) PTSD (post-traumatic stress disorder) Smoker Surgical History H/O eye surgery left repair retina History of bone marrow biopsy Hx of knee surgery scope at age 17 Hx of vasectomy 7yrs ago Family History Mother Liver disease Diabetes Father Hypertension IBS (irritable bowel syndrome) Stroke Diverticulitis Social History Smoking Status: Current every day smoker Tobacco Type: cigarettes Substance Use Type: Marijuana Substance Abuse Comment: MEDICALLY, has not used in a few months Social History Comments: lives with dad Meds Medications and Allergies Allergies No Known Allergies Allergy (Verified 06/17/23 12:17) Home Medications escitalopram oxalate 10 mg tablet 10 mg PO QHS 11/13/21 [History Confirmed 06/17/23] famotidine 20 mg tablet 40 mg PO QHS 11/13/21 [History Confirmed 06/17/23] atorvastatin 80 mg tablet 80 mg PO QPM 30 days #30 tabs 11/17/21 [Rx Confirmed 06/17/23] nitroglycerin 0.4 mg sublingual tablet 0.4 mg sublingual Q5MIN.X3 PRN Chest Pain30 days #25 tabs 11/17/21 [Rx Confirmed 06/17/23] epoetin alexus-epbx 20,000 unit/mL injection solution (Retacrit) 20,000 unit subcut QMONTH 04/09/22 [History Confirmed 06/17/23] omeprazole 40 mg capsule,delayed release 40 mg PO QAM 05/09/22 [History Confirmed 06/17/23] insulin lispro 100 unit/mL subcutaneous solution (Humalog U-100 Insulin) 1 sliding scale dose subcut USEASDIRECTD 05/29/22 [History Confirmed 06/17/23] aspirin 81 mg chewable tablet (Children's Aspirin) 81 mg PO QAM 09/10/22 [History Confirmed 06/17/23] clopidogrel 75 mg tablet (Plavix) 75 mg PO QAM 09/10/22 [History Confirmed 06/17/23] furosemide 40 mg tablet 40 mg PO QAM 09/10/22 [History Confirmed 06/17/23] isosorbide mononitrate 60 mg tablet,extended release 24 hr 60 mg PO QHS 11/12/22[History Confirmed 06/17/23] carvedilol 25 mg tablet (Coreg) 25 mg PO BID #60 tabs 01/09/23 [Rx Confirmed 06/17/23] loratadine 10 mg tablet 10 mg PO DIRECTED 01/09/23 [History Confirmed 06/17/23] calcium acetate 667 mg tablet 667 mg PO DIRECTED 03/26/23 [History Confirmed 06/17/23] hydralazine 50 mg tablet 50 mg PO QHS 04/12/23 [History Confirmed 06/17/23] insulin glargine 100 unit/mL (3 mL) subcutaneous pen (Lantus Solostar U-100 Insulin) 10 unit subcut DAILY 04/12/23 [History Confirmed 06/17/23] Exam Physical Exam Vital Signs: Temp Pulse Resp BP Pulse Ox O2 Del Method 36.5 C 59 L 16 171/80 H 98 Room Air 08/18/23 05:06 08/18/23 05:06 08/18/23 05:06 08/18/23 05:06 08/18/23 05:06 08/18/23 05:27 Narrative: GEN: Pleasant, Cooperative, Not in acute distress. NECK: Supple, ? JVD LUNGS: CTA. normal respiratory effort. CV: S1S2 nl, ? M/R/G ABD: Soft, ND, NT, + BS, ? rebound/guarding, ?CVA tenderness, ? HSM EXT: No edema in LE bilaterally, no calf muscle tenderness. NEURO: ? FND PSYCH: nl affect, ? hallucinations, nl speech, AOx3. Assessment & Plan Assessment/Plan (1) Chest pain, rule out acute myocardial infarction: (2) ESRD (end stage renal disease) on dialysis: (3) Diabetes mellitus: (4) CAD (coronary artery disease): Plan IP vs OBS Justification Based on differential dx, clinical care plan, and risk of adverse events, if untreated, in my clinical judgement this patient requires an acute care setting as: OBSERVATION because of an expectation of an under 2 midnight stay. Estimated length of stay (# of days): 1 Documented By: Law Cano MD 08/18/23 0542 Signed By: <Electronically signed by Law Cano MD> 08/18/23 0658 [facility] Work Phone: 1(358) [phone] Evaluation note* Encounter Date Diagnosis Assessment Notes Treatment Notes Treatment Clinical Notes Jul, ASHD (arteriosclerotic heart disease) (ICD-10 - I25.10) [...] Lexapro Declines adjustment in dose or augmentation [facility] Other 11-28-2023 Evaluation note* Encounter Date Diagnosis [...] low closely. No s/s GIB No bleed [facility] Other 11-16-2023 Evaluation note* Encounter Date Diagnosis [...] patient back in 2 months for checkup. [facility] [facility] Other 10-30-2023 [facility]* Encounter Date Diagnosis Assessment Notes Treatment Notes Treatment Clinical Notes May, AV fistula (ICD-10 - I77.0) I did examine the fistula. There does appear to be a competing outflow segment of the vein in the forearm. I suggest we try to either coil this or tied off. We will start with a less invasive option going to the Marketing Proposal Coordinator for coil embolization of a cephalic venous tributary in the left forearm. This is explained to the patient he understands agrees with plan all his questions were addressed and the patient consents to this today. [facility] [facility] Other 10-10-2023 Evaluation note* Encounter Date Diagnosis [...] w/ Nephrology. Monitor monthly No s/s bleeding [employer] Other 08-25-2023 [facility]* Encounter Date Diagnosis Assessment Notes [...] addressed. We will schedule this for Saturday. [facility] [facility] Other 07-12-2023 Evaluation note* Encounter Date Diagnosis Assessment Notes Treatment Notes Treatment Clinical Notes Feb, Chronic kidney disea se, stage 5 (ICD-10 - N18.5) He has a CKD due to the DM and HTN. Patient reported uremic symptoms. His AVF has matured. He is interested in HD and agreed to initiate dialysis. I coordinated with the [place] dialysis unit for his admission. Also gave [...] due to the advanced CKD and hyperkalemia [employer] Other 06-26-2023 Evaluation note* Encounter Date Diagnosis [...] call office to initiate hemodialysis. Jan, Lauri ludwig kid w cr kid I-IV (ICD-10 - [...] due to the advanced CKD and hyperkalemia [employer] Other 06-19-2023 Discharge summary Author Denilson Gomez [facility] February 04, 2023 5:27pm Note Date/Time February 04, 2023 5:16 pm [facility] [address] [place] [address] Discharge Summary Signed with Addenda Patient: Yoel Werner MR#: [id number] : 1985 Acct:[id number] Age/Sex: 37 / M Adm Date: 3 [...] History of PCI LAD with prior anterior VT 3. Residual RCA disease 4. Stage IV/V chronic kidney disease 6. Type 1 diabetes mellitus 7. Successful PCI proximal/mid LAD x2 JUAN C Summary Hospital Course Hospital course: 37-year-old gentleman with severe coronary artery disease and type 1 diabetes mellitus status post anterior VT with revascularization of the LAD and residual [...] doctor or pharmacist, without first calling the leasing machine tender who implanted the stent. If you require [...] weight lifting, stair steppers, etc. until the leasing machine tender approves these activities. Check with the leasing machine tender on your first follow-up visit. CALL YOUR PHYSICIAN at [phone]: -If bleeding should occur from the catheter insertion site- apply pressure to the site then immediately call us. -Report any fever, redness, drainage, increased swelling, or firmness at the catheter insertion site. Some bruising or slight swelling may be present at thetime of discharge. -Should arm or leg become cold, numb, white, or blue, contact the leasing machine tender immediately. -IF you should experience episodes of [...] is recommended. Please call Central Scheduling at [phone] to schedule your appointment.] The attending leasing machine tender or [facility] nurse clinician should provide you with specific instructions regarding activity, diet, medications, and further follow up for you. Follow the medication instructions provided on your discharge. If the dosages and instructions on this sheet differ from the dosage and instructions on the bottle, follow the instructions on the bottle. [facility] is not responsible for incorrect prescription information [...] <Electronically signed by Denilson Gomez DO> 02/04/231717 [facility] Work Phone: 1(257) 511-357406-19-2023 Procedure [facility]06-07-2023 Evaluation note* Encounter Date Diagnosis Assessment [...] is pleased with his outcome and care. [employer] Other 04-25-2023 Procedure [facility]04-20-2023 Evaluation note* Encounter Date Diagnosis Assessment Notes Treatment Notes Treatment Clinical Notes Nov, Anemia in chronic kidney disease (ICD-10 - D63.1) Nov, Chronic kidney disease, stage 5 (ICD-10 - N18.5) [facility] [facility] Other 04-12-2023 Evaluation note* Encounter Date Diagnosis [...] scheduled in the near future for intervention. [facility] [facility] Other 04-03-2023 Evaluation note* Encounter Date Diagnosis [...] the losartan due to the advanced CKD. [facility] [facility] Other 03-27-2023 Evaluation note* Encounter Date Diagnosis Assessment Notes Treatment Notes Treatment Clinical Notes Oct, Primary hypertension (ICD-10 - I10) [facility] [facility] Other 03-07-2023 Evaluation note* Encounter Date Diagnosis Assessment Notes Treatment Notes Treatment Clinical Notes Oct, Type 1 diabetes mellitus with hyperglycemia (ICD-10 - E10.65) [facility] [facility] Other 02-28-2023 Evaluation note* Encounter Date Diagnosis [...] call office to initiate hemodialysis. Sep, Lauri ludwig kid w cr kid I-IV (ICD-10 - [...] DM management. Continue losartan for renal protection. [facility] [facility] Other 02-22-2023 Evaluation note* Encounter Date Diagnosis [...] meantime with any issues or concerns whatsoever. [facility] [facility] Other 02-20-2023 Evaluation note* Encounter Date Diagnosis [...] in chronic kidney disease (ICD-10 - D63.1) [employer] Other 02-15-2023 Progress note Author Ross Catherine [facility] October 03, 2022 2:51pm Note Date/Time October 03, 2022 2:48pm [facility] [address] [place] [address] Hospitalist Progress Note Signed Patient: Yoel Werner MR#: [id number] : 1985 Acct:[id number] Age/Sex: 37 / M Adm Date: 3 Loc: 4 Room: 2U3414-1 Type: ADM INOo Attending Dr: Ross Catherine [...] 81 Mg Tab.Chew PO 10/04/23 08:59 QAM [facility] Atorvastatin Calcium 80 mg 10/03/22 21:00 Atorvastatin 80 Mg Tablet PO 10/03/23 20:59 QPM [facility] Carvedilol 12.5 mg 10/03/22 17:00 Carvedilol 12.5 Mg Tablet PO 10/03/23 16:59 BID.WITH.MEALS [facility] Clopidogrel Bisulfate 75 mg 10/04/22 09:00 Clopidogrel Bisulfate 75 Mg Tablet PO 10/04/23 08:59 QAM [facility] Ergocalciferol 1,250 mcg 10/10/22 09:00 Ergocalciferol 1,250 Mcg (50,000 Units) Capsule PO 10/10/23 08:59 We@0900 [facility] Escitalopram Oxalate 10 mg 10/03/22 22:00 Escitalopram 10 Mg Tablet PO 10/03/23 21:59 QHS [facility] Famotidine 40 mg 10/03/22 22:00 Famotidine 20 Mg Tablet PO 10/03/23 21:59 QHS [facility] Furosemide 40 mg 10/04/22 09:00 Furosemide 40 Mg Tablet PO 10/04/23 08:59 QAM [facility] Hydralazine HCl 50 mg 10/03/22 22:00 Hydralazine 50 Mg Tablet PO 10/03/23 21:59 TID [facility] Insulin Glargine 12 units 10/04/22 09:00 Insulin Glargine 300 Units/3 Ml Insuln.Pen SUBCUT 10/04/23 08:59 QAM [facility] Insulin Human Lispro unit 10/03/22 14:45 Insulin Lispro (Rashard/Ed Only) 300 Unit/3 Ml Vial SUBCUT 10/03/23 14:44 USEASDIRECTD [facility] Isosorbide Mononitrate 30 mg 10/03/22 22:00 Isosorbide Mononitrate 24hr Er 30 Mg Tab.Er.24h PO 10/03/23 21:59 QHS [facility] Nitroglycerin 0.4 mg 10/03/22 14:31 Nitroglycerin 0.4 Mg Tab.Subl SUBLINGUAL 10/03/23 14:30 Q5MIN.X3 PRN Chest Pain Pantoprazole Sodium 40 mg 10/04/22 09:00 Pantoprazole 40 Mg Tablet.Dr PO 10/04/23 08:59 QAM [facility] Sodium Chloride 0 ml 10/03/22 01:40 10/03/22 [...] signed by Ross Catherine MD> 10/03/22 1451 [facility] Work Phone: 1(321) 799-744902-15-2023 History and physical note Author Evert Renae [facility] October 03, 2022 4:54am Note Date/Time October 03, 2022 4:38am [facility] [address] [place] [address] Hospitalist H&P Signed Patient: Yoel Werner MR#: [id number] : 1985 Acct:[id number] Age/Sex: 37 / M Adm Date: 3 Loc: Room: [address] [place] [address] Type: ADM IN Attending Dr: Evert Renae DO Copies to: DO Evert Leblanc DO~ HPI DATE OF EXAMINATION: 10/03/22 CHIEF COMPLAINT: [...] 10/02/22 23:35 MCHC 34.9 g/dL (32.5-35.6) 10/02/22 23:35 RDW 13.2 % (12.0-14.8) 10/02/22 23:35 Plt Count 185 x10E3/uL (150-450) 10/02/22 23:35 MPV 8.2 fl (6.6-10.1) 10/02/22 23:35 Neut % (Auto) 70.2 % (.) 10/02/22 23:35 Lymph % (Auto) 19.9 % (.) 10/02/22 23:35 [place] % (Auto) 5.5 % (.) 10/02/22 23:35 Eos % (Auto) 2.7 % (.) 10/02/22 23:35 Baso % (Auto) 1.7 % (.) 10/02/22 23:35 Nucleat RBC Rel Count 0.0 /100 WBC (0-0.5) 10/02/22 23:35 Neut # (Auto) 5.1 x10E3/uL (1.8-7.7) 10/02/22 23:35 Lymph # (Auto) 1.4 x10E3/uL (1.00-4.8) 10/02/22 23:35 [place] # (Auto) 0.4 x10E3/uL (0.0-0.8) 10/02/22 23:35 Eos # (Auto) 0.2 x10E3/uL (0.0-0.45) 10/02/22 23:35 Baso # (Auto) 0.1 x10E3/uL (0.0-0.2) 10/02/22 23:35 Monocyte Dist Width 14.39 % (0.00-20.00) 10/02/22 23:35 PT 12.1 Seconds (9.0-12.9) 10/02/22 23:35 INR 1.0 10/02/22 23:35 APTT 37.1 Seconds (25.1-36.5) H 10/03/22 01:39 PHA Creatinine Clear 25.83 10/02/22 23:35 Sodium 135 mmol/L (136-146) L 10/02/22 23:35 Potassium 4.4 mmol/L (3.5-5.1) 10/02/22 23:35 Chloride [...] <Electronically signed by Evert Renae DO> 10/03/22 0454 [facility] Work Phone: 1(339) 231-605501-30-2023 [facility] Progress note Author Haydee Lira [facility] September 12, 2022 3:35pm Note Date/Time September 10, 2022 5 :14pm [facility] [place] [address] Hem/Onc Follow Up Note - OP Signed Patient: Yoel Werner MR#: [id number] : 1985 Acct:[id number] Age/Sex: 37 / M Type: REG RCR [...] history of asthma, hives, eczema or rhinitis. [facility] - Medical History Medical History: Medical [...] IgM 189 H, Serum Immunofixation Comment:, Free Salineno LC, Quant 128.0 H, Free Lambda LC, Quant 77.5 H, Free [place]/Lambda Ratio 1.65 Assessment and Plan (1) MGUS [...] for coordination of care (as documented) and pytk-nw-hlcb counseling of patient and/or family. Dictated By: Haydee Lira APRN DD/ 1707 Signed By: <Electronically signed by JOSH Lria> 09/12/22 1534 [facility] Work Phone: 1([phone]) 591-179801-18-2023 Evaluation note* Encounter Date Diagnosis Assessment Notes [...] we will schedule this in near future. [facility] Other 01-12-2023 Evaluation note* Encounter Date Diagnosis [...] CKD. I explained to potential need of TACK MAKER in near future. I discussed with him different option of TACK MAKER including PD, transplant, HD. He attended the kidney smart classes. He is interested in HD so I have referred him to Vascular surgery. Aug, Lauri ludwig kid w cr kid I-IV (ICD-10 - [...] DM management. Continue losartan for renal protection. [facility] Other 01-11-2023 Hospital Discharge instructions Patient Education [...] Follow these instructions at home: Medicines Take ezol-xzi-gaaafec and prescription medicines only as told by [...] 08/02/2001 Document Revised: 07/18/2018 Document Reviewed: 08/21/2017 [employer] Patient Education 2020 [place]. Follow Up Care 07/16/2022 11:13:53 With:TRUONG MOLINA, Robyn Tovar, URL Address: [facility] [address], [place] [address]- When: Unknown [facility] 12-26-2022 Consult note Author Nancy Haas [facility] August 13, 2022 1:06pm Note Date/Time August 13, 2022 1:01pm [facility] [address] [place] [address] Nephrology Consult Note Signed Patient: Yoel Werner MR#: [id number] : 1985 Acct:[id number] Age/Sex: 37 / M Adm Date: 2 Loc: Room: [address] [place] [address] Type: ADM INOo Attending Dr: Law Cano [...] to 3.4 mg deciliter, history of non-ST VT status post stent placement. Patient brought in to the hospital for sudden onset of chest pain and syncope while he was urinating at home. Patient was a little drowsy when he arrived but this resolved. Patient stated his chest pain is similar to when he had acute VT. Patient also reportedsome shortness of breath. Blood [...] glargine 100 unit/mL (3 mL) subcutaneous pen (coconeaglar KwikPen U-100 Insulin) 12 unit subcut DAILY [...] 10 Mg Tablet) 10 mg PO DAILY [facility] Stop: 08/13/23 08:59 Last Admin: 08/13/22 08:22 Dose: 10 mg Famotidine (Famotidine 20 Mg Tablet) 20 mg PO BID [facility] Stop: 08/13/23 08:59 Last Admin: 08/13/22 08:22 Dose: 20 mg Furosemide (Furosemide 100 Mg/10 Ml Vial) 80 mg IV-PUSH BID@0800,1600 [facility] Stop: 08/13/23 07:59 Last Admin: 08/13/22 08:22 Dose: 80 mg Glucose (Dextrose 40% Gel 15 Gm Tube) 0 gm PO PRN PRN PRN Reason: Hypoglycemia Stop: 08/13/23 07:10 Heparin Sodium (Porcine) (Heparin 5,000 Unit/Ml Vial) 5,000 unit SUBCUT Q8HR [facility] Stop: 08/13/23 05:59 Last Admin: 08/13/22 06:32 Dose: 5,000 unit Hydralazine HCl (Hydralazine 20 Mg/Ml Vial) 10 mg IV-PUSH Q4H PRN PRN Reason: Hypertension Stop: 08/13/23 04:46 Hydralazine HCl (Hydralazine 50 Mg Tablet) 50 mg PO TID [facility] Stop: 08/13/23 08:59 Last Admin: 08/13/22 08:22 Dose: 50 mg Magnesium Sulfate (Magnesium Sulf 2gm-*Swfi*) 2 gm in 50 mls @ 25 mls/hr IV DAILY PRN PRN Reason: Magnesium Level < 1.5 Stop: 08/13/23 04:46 Insulin Aspart (Insulin Aspart 300 Units/3 Ml Insuln.Pen) 0 units SUBCUT TID.WM.HS [facility]; Protocol Stop: 08/13/23 07:59 Last Admin: 08/13/22 11:13 Dose: 3 units Insulin Glargine (Insulin Glargine 300 Units/3 Ml Insuln.Pen) 12 units SUBCUT DAILY [facility] Stop: 08/13/23 08:59 Last Admin: 08/13/22 09:07 Dose: 12 units Isosorbide Mononitrate (Isosorbide Mononitrate 24hr Er 30 Mg Tab.Er.24h) 30 mg PO DAILY [facility] Stop: 08/13/23 08:59 Last Admin: 08/13/22 08:22 Dose: 30 mg Nitroglycerin (Nitroglycerin 0.4 Mg Tab.Subl) 0.4 mg SUBLINGUAL Q5MIN.X3 PRN PRN Reason: Chest Pain Stop: 08/13/23 04:50 Non-Formulary Medication (Epoetin Alexus-Epbx [Retacrit]) 20,000 unit SUBCUT QMONTH [facility] Stop: 08/13/23 04:59 Omeprazole (Omeprazole 20 Mg Capsule.Dr) 40 mg PO DAILY [facility] Stop: 08/13/23 08:59 [...] Appearance Clear Urine pH 5.5 Ur Specific [place] 1.011 Urine Protein 300 H Urine Glucose (UA) 250 H Urine Ketones Negative Urine Occult Blood 1+ H Urine Nitrite Negative Ur Leukocyte Esterase Negative Urine RBC 10-19 H Urine WBC 1-2 Urine Bacteria None seen Radiology Impressions Impressions - last 24 hours: Impressions Head CT 08/12/22 23:07 IMPRESSION: No acute intracranial findings. Impression dictated by: Alec Flynn M.D.08/13/2022 11:25 AM Dictation Location: [place] [address] Chest X-Ray 08/13/22 04:55 IMPRESSION: No acute process. Impression dictated by: Alec Flynn M.D.08/13/2022 8:22 AM Dictation Location: [place] [address] Any impression(s) listed above is documentation that [...] signed by Nancy Haas MD> 08/13/22 1306 [facility] Work Phone: 1(361) [phone] History and physical note Author Isidoro Mesa [facility] August 13, 2022 4:55am Note Date/Time August 13, 2022 4:18am [facility] [address] [place] [address] Hospitalist H&P Signed Patient: Yoel Werner MR#: [id number] : 1985 Acct:[id number] Age/Sex: 37 / M Adm Date: 2 Loc: Room: [address] [place] [address] Type: ADM INOo Attending Dr: Isidoro Mesa [...] glargine 100 unit/mL (3 mL) subcutaneous pen (coconeaglar KwikPen U-100 Insulin) 12 unit subcut DAILY [...] #180 tabs 11/18/21 [Rx Confirmed 08/12/22] epoetin aelxus-epbx 20,000 unit/mL injection solution (Retacrit) 20,000 unit [...] % (Auto) 29.2 % (.) 08/12/22 23:58 [place] % (Auto) 8.9 % (.) 08/12/22 23:58 Eos % (Auto) 2.7 % (.) 08/12/22 23:58 Baso % (Auto) 1.5 % (.) 08/12/22 23:58 Nucleat RBC Rel Count 0.1 /100 WBC (0-0.5) 08/12/22 23:58 Neut # (Auto) 3.1 x10E3/uL (1.8-7.7) 08/12/22 23:58 Lymph # (Auto) 1.6 x10E3/uL (1.00-4.8) 08/12/22 23:58 [place] # (Auto) 0.5 x10E3/uL (0.0-0.8) 08/12/22 23:58 [...] pH 5.5 (5.0-9.0) 08/13/22 00:49 Ur Specific [place] 1.011 (1.001-1.030) 08/13/22 00:49 Urine Protein 300 [...] disease): Plan: See above Documented By: Isidoro Mesa, 08/13/22 0416 Signed By: <Electronically signed by Isidoro Mesa, DO> 08/13/22 0455 [facility] Work Phone: 1([phone]) 929-340512-15-2022 Miscellaneous Notes* Telephone Encounter - Sara Colemanninfastacy - 08/02/2022 10:39 AM EST Returned call to patient regarding kidney transplant, he is currently smoking cigarettes about 1/2 pack per day. Advised patient once he is nicotine free for 30-days to contact our office. Closing referral at this time and patient verbalized understanding. Sara Colemanmaritza documented [facility] Evaluation note* Encounter Date Diagnosis Assessment [...] CKD. I explained to potential need of TACK MAKER in near future. I discussed with him different option of TACK MAKER including PD, transplant, HD. I referred him [...] DM management. Continue losartan for renal protection. [employer] Other 10-11-2022 Progress note Author Jorje Small [facility] May 29, 2022 4:50pm Note Date/Time May 29, 2022 4 :42pm [facility] [place] [address] Hem/Onc Follow Up Note - OP Signed Patient: Yoel Werner MR#: [id number] : 1985 Acct:[id number] Age/Sex: 37 / M Type: REG RCR [...] history of asthma, hives, eczema or rhinitis. [facility] - Medical History Medical History: Medical [...] for coordination of care (as documented) and tjsf-gr-ebba counseling of patient and/or family. Dictated By: Jorje Small MD DD/ 1641 Signed By: <Electronically signed by Jorje Small MD> 05/29/22 1650 [facility] Work Phone: [phone]) 168-207110-05-2022 Evaluation note* Encounter Date Diagnosis Assessment Notes [...] CKD. I explained to potential need of TACK MAKER in near future. I discussed with him different option of TACK MAKER including PD, transplant, HD. I referred him [...] DM management. Continue losartan for renal protection. [facility] [facility] Other 09-21-2022 Consult note Author Jorje Small [facility] May 09, 2022 3:02pm Note Date/Time May 09, 2022 2:53pm [facility] [place] [address] Hem/Onc Consult Note - OP Signed Patient: Yoel Werner MR#: [id number] : 1985 Acct:[id number] Age/Sex: 37 / M Type: REG RCR [...] occasional pain or discomfort in the spine [facility] - Medical History Medical History: Medical [...] assessment is warranted and concern on the playground aide part is appropriate and justified. We will [...] for coordination of care (as documented) and izns-tb-rydt counseling of patient and/or family. Dictated By: Jorje Small MD DD/ 1453 Signed By: <Electronically signed by Jorje Small MD> 05/09/22 1502 [facility] Work Phone: 1([phone]) [phone] Evaluation note* Encounter Date Diagnosis Assessment Notes Treatment Notes Treatment Clinical Notes Apr, Anemia of renal disease (ICD-10 - D63.1) Apr, Chronic kidney disease, stage III (moderate) (ICD-10 - N18.30) [employer] Other 08-17-2022 Evaluation note* Encounter Date Diagnosis Assessment Notes Treatment Notes Treatment Clinical Notes Mar, Secondary hyperparathyroidism (ICD-10 - N25.81) [employer] Other 08-11-2022 Evaluation note* Encounter Date Diagnosis [...] explained to him due to the recent VT and dual antiplatelet therapy biopsy will be [...] CKD. I explained to potential need of TACK MAKER in near future. I discussed with him different option of TACK MAKER including PD, transplant, HD. Mar, Lauri hy [...] DM management. Continue losartan for renal protection. [employer] Other 05-03-2022 Evaluation note* Encounter Date Diagnosis [...] DM management. Continue losartan for renal protection. [employer] Other 03-23-2022 Evaluation note* Encounter Date Diagnosis [...] DM management. Continue losartan for renal protection. [employer] Other 02-14-2022 NoteHNO ID: [id number] Author: Clarke Allen MD Service: ? Author [...] monitor PDR OU -sees Dr. [facility] [place] -s/p Avastin OU last 09/08/21 -s/p PPV/SO/scleral [...] its relevant components. Clarke Allen MD October 02[facility] note Author Jorje [facility] May 09, 2022 3:02pm Note Date/Time May 09, 2022 2:53pm [facility] [place] [address] Hem/Onc Consult Note - OP Signed Patient: Yoel Werner MR#: [id number] : 1985 Acct:[id number] Age/Sex: 37 / M Type: REG RCR [...] occasional pain or discomfort in the spine [facility] - Medical History Medical History: Medical [...] assessment is warranted and concern on the playground aide part is appropriate and justified. We will [...] for coordination of care (as documented) and [id number] counseling of patient and/or family. Dictated By: Jorje Small MD DD/ [id number] Signed By: <Electronically signed by Jorje Small MD> 05/09/22 [id number] [facility] Work Phone: Consult note Author Nancy Haas [facility] August 13, 2022 1:06pm Note Date/Time August 13, 2022 1:01pm [facility] [address] [place] [address] Nephrology Consult Note Signed Patient: Yoel Werner MR#: [id number] : 1985 Acct:[id number] Age/Sex: 37 / M Adm Date: 2 Loc: Room: [address] [place] [address] Type: ADM INOo Attending Dr: Law Cano [...] to 3.4 mg deciliter, history of non-ST VT status post stent placement. Patient brought in to the hospital for sudden onset of chest pain and syncope while he was urinating at home. Patient was a little drowsy when he arrived but this resolved. Patient stated his chest pain is similar to when he had acute VT. Patient also reportedsome shortness of breath. Blood [...] glargine 100 unit/mL (3 mL) subcutaneous pen (coconeaglExceleraikPen U-100 Insulin) 12 unit subcut DAILY 09/11/21 [...] 10 Mg Tablet) 10 mg PO DAILY [facility] Stop: 08/13/23 08:59 Last Admin: 08/13/22 08:22 Dose: 10 mg Famotidine (Famotidine 20 Mg Tablet) 20 mg PO BID [facility] Stop: 08/13/23 08:59 Last Admin: 08/13/22 08:22 Dose: 20 mg Furosemide (Furosemide 100 Mg/10 Ml Vial) 80 mg IV-PUSH BID@0800,1600 [facility] Stop: 08/13/23 07:59 Last Admin: 08/13/22 08:22 Dose: 80 mg Glucose (Dextrose 40% Gel 15 Gm Tube) 0 gm PO PRN PRN PRN Reason: Hypoglycemia Stop: 08/13/23 07:10 Heparin Sodium (Porcine) (Heparin 5,000 Unit/Ml Vial) 5,000 unit SUBCUT Q8HR [facility] Stop: 08/13/23 05:59 Last Admin: 08/13/22 06:32 Dose: 5,000 unit Hydralazine HCl (Hydralazine 20 Mg/Ml Vial) 10 mg IV-PUSH Q4H PRN PRN Reason: Hypertension Stop: 08/13/23 04:46 Hydralazine HCl (Hydralazine 50 Mg Tablet) 50 mg PO TID [facility] Stop: 08/13/23 08:59 Last Admin: 08/13/22 08:22 Dose: 50 mg Magnesium Sulfate (Magnesium Sulf 2gm-*Swfi*) 2 gm in 50 mls @ 25 mls/hr IV DAILY PRN PRN Reason: Magnesium Level < 1.5 Stop: 08/13/23 04:46 Insulin Aspart (Insulin Aspart 300 Units/3 Ml Insuln.Pen) 0 units SUBCUT TID.WM.HS [facility]; Protocol Stop: 08/13/23 07:59 Last Admin: 08/13/22 11:13 Dose: 3 units Insulin Glargine (Insulin Glargine 300 Units/3 Ml Insuln.Pen) 12 units SUBCUT DAILY [facility] Stop: 08/13/23 08:59 Last Admin: 08/13/22 09:07 Dose: 12 units Isosorbide Mononitrate (Isosorbide Mononitrate 24hr Er 30 Mg Tab.Er.24h) 30 mg PO DAILY [facility] Stop: 08/13/23 08:59 Last Admin: 08/13/22 08:22 Dose: 30 mg Nitroglycerin (Nitroglycerin 0.4 Mg Tab.Subl) 0.4 mg SUBLINGUAL Q5MIN.X3 PRN PRN Reason: Chest Pain Stop: 08/13/23 04:50 Non-Formulary Medication (Epoetin Alexus-Epbx [Retacrit]) 20,000 unit SUBCUT QMONTH [facility] Stop: 08/13/23 04:59 Omeprazole (Omeprazole 20 Mg Capsule.Dr) 40 mg PO DAILY [facility] Stop: 08/13/23 08:59 [...] Appearance Clear Urine pH 5.5 Ur Specific [place] 1.011 Urine Protein 300 H Urine Glucose (UA) 250 H Urine Ketones Negative Urine Occult Blood 1+ H Urine Nitrite Negative Ur Leukocyte Esterase Negative Urine RBC 10-19 H Urine WBC 1-2 Urine Bacteria None seen Radiology Impressions Impressions - last 24 hours: Impressions Head CT 08/12/22 23:07 IMPRESSION: No acute intracranial findings. Impression dictated by: Alec Flynn M.D.08/13/2022 11:25 AM Dictation Location: [place] [address] Chest X-Ray 08/13/22 04:55 IMPRESSION: No acute process. Impression dictated by: Alec Flynn M.D.08/13/2022 8:22 AM Dictation Location: [place] [address] Any impression(s) listed above is documentation that [...] concern. Documented By: Nancy Haas MD 08/13/22 1327 Signed By: <Electronically signed by Nancy Haas MD> 08/13/22 1309 [facility] Work Phone: Consult note Author W Jason [facility] October 03, 2022 5:14pm Note Date/Time October 03, 2022 5:06pm [facility] [address] [place] [address] Cardiology Consult Note Signed Patient: Yoel Werner MR#: [id number] : 1985 Acct:[id number] Age/Sex: 37 / M Adm Date: 3 Loc: Room: [address] [place] [address] Type: ADM INOo Attending Dr: Ross Catherine MD Copies to: DO Ross Leblanc MD W Rene Gomez, ~ Cardiology HPI History of Present Illness Consult [...] 2021 he presented with acute non-ST elevation VT, in conjunction with type 1 diabetes and [...] Lymph # (Auto) 1.4 1.7 (1.00-4.8) x10E3/uL [place] # (Auto) 0.4 0.3 (0.0-0.8) x10E3/uL Eos [...] 8.0 L (8.2-10.2) mg/dL Intake and Output 0210/03/22 10/03/22 07:59 15:59 23:59 Intake Total 480 [...] Code(s): I25.10 - Atherosclerotic heart disease of [place] coronary artery without angina pectoris (5) Diabetes: Code(s): E11.9 - Type 2 diabetes mellitus without complications Documented By: Denilson Gomez DO 10/03/221702 Signed By: <Electronically signed by Denilson Gomez DO> 10/03/22 [facility] Work Phone: Discharge summary Author Jorge Mederos [facility] August 18, 2023 1:30pm Note Date/Time August 18, 2023 1:31pm [facility] [address] [place] [address] Discharge Summary Signed Patient: Yoel Werner MR#: [id number] : 1985 Acct:[id number] Age/Sex: 38 / M Adm Date: 3 Loc: 3T Room: 3B3348-[address]: Jorge Mederos DO Copies to: DO Jorge Leblanc DO~ Providers Date of Discharge: 08/18/23 Discharging Provider: Jorge Mederos Primary Care Provider: Rolando Olivares Consults: 08/18/23 05:35 Consult to Cardiology Routine Consult to Nephrology Routine Discharge Diagnosis (1) CAD (coronary artery disease): (2) Chest pain, rule out acute myocardial infarction: Final Diagnosis Final Discharge Diagnosis: chest pain Summary Hospital Course Hospital course: 38M with PMH of HTN, DM, HLD, CAD s/p stenting, HF, ESRD on HD, GERD, anxiety who presented with chest pain to [facility] () ER and transferred for the evaluation and treatment of suspected ACS The patient has been experiencing left-sided chest pain since yesterday. The pain is constant, fluctuating in severity, and radiates to his left arm. The pain is associated with diaphoresis, nausea, and vomiting, resulting in two instances of non-bloody emesis. He denies any shortness of breath. Also, After experiencing the chest pain, he took nitroglycerin and subsequently experienced a brief syncopal episode. His father, who was with him at the time and witnessedthe event, confirmed that he did not hit his head. The patient underwent hemodialysis on Saturday. In January, he had a left heart catheterization during which a PCI was performed on the proximal/mid LAD artery, with the placement of two drug-eluting stents . Pt transferred to [facility] as chest pain did not resolve despite flat troponin elevation. Pt chest pain had resolved upon arrival to [facility] and repeat troponin here was less than at [place]. Cardiology cleared pt for discharge and made adjustment to his home meds. Pt discharged home in stable and improved condition and will follow up with nephrology, cardiology and PCP after discharge. Condition Condition at Discharge: Stable Status at Discharge Overall status at discharge: patient is back to baseline Time Spent with Patient Time spent providing/coordinating discharge services (# min): 45 Diagnostic Studies Completed and Pending Studies Pending studies at discharge: 08/19/23 05:00 ECG 12 lead ECG IN AM Labs on day of discharge: 08/18/23 11:38: POC Glucose 192 08/18/23 07:12: Troponin I High Sens 38.1 H 08/18/23 07:12: PHA Creatinine Clear 15.78, Sodium 132 L, Potassium 4.0, Chloride 98, Carbon Dioxide 26.0, Anion Gap 12.0, BUN 40 H, Creatinine 6.43 H, Est GFR (CKD- EPI) 10.590, Glucose 97, Calcium 8.6, Magnesium 1.9, Total Bilirubin 0.5, AST 13, ALT 12, Alkaline Phosphatase 61, Total Protein 6.2 L, Albumin 3.6, Globulin 2.6, Albumin/Globulin Ratio 1.4 08/18/23 07:12: PT 12.0, INR 1.1, APTT 37.6 H 08/18/23 07:12: Corrected WBC 5.4, RBC 3.81 L, Hgb 12.0 L, Hct 34.4 L, MCV 90.3,MCH 31.4, MCHC 34.8, RDW 13.4, Plt Count 99 L, MPV 8.6 Exam Physical Exam Vital Signs: Temp Pulse Resp BP Pulse Ox O2 Del Method 98 F 68 18 137/80 95 Room Air 08/18/23 08:00 08/18/23 08:00 08/18/23 08:00 08/18/23 08:00 08/18/23 08:00 08/18/23 08:00 Narrative: see H&P from today for PE Discharge Plan Discharge Plan Patient Disposition: Home Activity: No Activity Restriction Diet: Renal Additional Instructions: Continue Hemodialysis as directed. Prescriptions: New amlodipine 2.5 mg tablet 2.5 mg PO DAILY Qty: 30 5RF Continued famotidine 20 mg tablet 40 mg [...] Solution 1 sliding scale dose SUBCUT USEASDIRECTD Rx Instructions: 15 to 1 calcium acetate 667 mg Tablet 667 mg PO DIRECTED furosemide 40 mg tablet 40 mg PO QAM clopidogrel [Plavix] 75 mg tablet 75 mg PO QAM Patient Comments: has been holding since Saturday aspirin [Children's Aspirin] 81 mg tablet,chewable 81 mg PO QAM isosorbide mononitrate 60 mg tablet extended release 24 hr 60 mg PO QHS Retacrit 20,000 unit/mL solution 20,000 unit subcut QMONTH Patient Comments: as needed loratadine 10 mg tablet 10 mg PO DIRECTED Patient Comments: TAKE 1 TABLET BY MOUTH EVERY OTHER DAY FOR 90 DAYS carvedilol [Coreg] 25 mg tablet 25 mg PO BID Qty: 60 3RF Rx Instructions: must administer with a meal/food hydralazine 50 mg tablet 50 mg PO QHS insulin glargine [Lantus Solostar U-100 Insulin] 100 unit/mL (3 mL) insulin pen 10 unit SUBCUT DAILY Patient Comments: INJECT 12 UNITS SUBCUTANEOUSLY ONCE A DAY Follow Up: [facility] [Outside] (Please call to schedule an appointment.) Rolando Olivares DO [Primary Care Provider] - (His office is currently closed. Please call to schedule a post hospital appointment.) Documented By: Jorge Mederos DO 08/18/23 132 8 Signed By: <Electronically signed by Jorge Mederos DO> 08/18/23 1330 [facility] Work Phone: Evaluation + Plan [facility]Exec[facility] Evaluation noteNo InformationNort [employer] Other Evalurvmnw noteNo assessment information available [facility] Work Phone: evaluzgpbh note* Diagnosis Onset Date Resolution Status MGUS (monoclonal gammopathy of unknown significance) acute [facility] Work Phone: Evaluation note* Diagnosis Onset Date Resolution Status MGUS (monoclonal gammopathy of unknown significance) acute Acute congestive heart failure acute PINO (acute kidney injury) ac [place] Anemia acute CAD (coronary artery disease) acute Chest pain acute Chronic kidney disease, stage IV (severe) acute CKD (chronic kidney disease) acute Diabetes acute HTN (hypertension) acute Syncope acute Uncontrolled hypertension ac [facility] Work Phone: Evaluation note* Diagnosis Onset Date Resolution Status Acute congestive heart failure acute PINO (acute kidney injury) ac [place] Anemia acute CAD (coronary artery disease) acute Chest pain acute Chronic kidney disease, stage IV (severe) acute CKD (chronic kidney disease) acute Diabetes acute HTN (hypertension) acute Syncope acute Uncontrolled hypertension ac [place] MGUS (monoclonal gammopathy of unknown significance) acute [facility] Work Phone: Evaluation note* Diagnosis Screening for genitourinary condition Screening for other and unspecified genitourinary condition [facility] Diagnosis Onset Date Resolution Status Acute congestive heart failure acute PINO (acute kidney injury) ac [place] Anemia acute CAD (coronary artery disease) acute Chest pain acute Chronic kidney disease, stage IV (severe) acute CKD (chronic kidney disease) acute Diabetes acute HTN (hypertension) acute Syncope acute Uncontrolled hypertension ac [place] MGUS (monoclonal gammopathy of unknown significance) acute Stage 3b chronic kidney disease (CKD) acute [facility] Work Phone: Evaluation note* Diagnosis Onset Date Resolution Status Acute congestive heart failure acute PINO (acute kidney injury) ac [place] Anemia acute CAD (coronary artery disease) acute Chest pain acute Chronic kidney disease, stage IV (severe) acute CKD (chronic kidney disease) acute Diabetes acute HTN (hypertension) acute Syncope acute Uncontrolled hypertension ac [place] MGUS (monoclonal gammopathy of unknown significance) acute Stage 3b chronic kidney disease (CKD) acute Chest pain acute Diabetes acute [facility] Work Phone: Evaluation note* Diagnosis Onset Date Resolution Status Acute congestive heart failure acute PINO (acute kidney injury) ac [place] Anemia acute CAD (coronary artery disease) acute Chest pain acute Chronic kidney disease, stage IV (severe) acute CKD (chronic kidney disease) acute Diabetes acute HTN (hypertension) acute Syncope acute Uncontrolled hypertension ac [place] MGUS (monoclonal gammopathy of unknown significance) acute Stage 3b chronic kidney disease (CKD) acute Anemia acute Chest pain acute CKD (chronic kidney disease) acute Diabetes acute Triple vessel disease of the heart acute [facility] Work Phone: Evaluation note* Diagnosis Onset Date Resolution Status MGUS (monoclonal gammopathy of unknown significance) acute Stage 3b chronic kidney disease (CKD) acute Anemia acute Chest pain acute CKD (chronic kidney disease) acute Diabetes acute Triple vessel disease of the heart acute [facility] Work Phone: Evaluation note* Diagnosis Onset Date Resolution Status Anemia acute Chest pain acute CKD (chronic kidney disease) acute Diabetes acute Triple vessel disease of the heart acute [facility] Work Phone: Evaluation note* Diagnosis Onset Date Resolution Status Anemia acute CAD (coronary artery disease) acute Chest pain acute Chronic kidney disease, stage IV (severe) acute Diabetes acute GERD (gastroesophageal reflux disease) acute History of placement of stent in LAD coronary artery acute Hypertension acute Kidney failure acute [facility] Work Phone: Evaluation note* Diagnosis Onset Date Resolution Status Anemia acute CAD (coronary artery disease) acute Chest pain acute Chronic kidney disease, stage IV (severe) acute Diabetes acute GERD (gastroesophageal reflux disease) acute History of placement of stent in LAD coronary artery acute Hypertension acute Kidney failure acute MGUS (monoclonal gammopathy of unknown significance) acute Stage 3b chronic kidney disease (CKD) acute [facility] Work Phone: Evaluation noteNort [employer] Other Evaluation note* Diagnosis Onset Date Resolution Status MGUS (monoclonal gammopathy of unknown significance) acute Stage 3b chronic kidney disease (CKD) acute [facility] Work Phone: Evaluation note* Diagnosis Onset Date Resolution Status CAD (coronary artery disease) acute Chest pain, rule out acute myocardial infarction acute Diabetes mellitus acute ESRD (end stage renal disease) on dialysis acute [facility] Work Phone: evaluation note* Diagnosis Onset Date Resolution Status Chest pain, rule out acute myocardial infarction resolved [facility] Work Phone: Evaluation note* Diagnosis Left shoulder pain, unspecified chronicity- Primary Impingement of left shoulder Internal derangement of left shoulder [facility] Diagnosis Onset Date Resolution Status ESRD (end stage renal disease) on dialysis acute Chest pain, rule out acute myocardial infarction resolved MGUS (monoclonal gammopathy of unknown significance) acute Chronic pain syndrome acute Constipation acute Encounter for palliative care acute ESRD (end stage renal disease) on dialysis acute MGUS (monoclonal gammopathy of unknown significance) acute Nausea & vomiting acute AV fistula stenosis acute [facility] Work Phone: Evaluation note* Diagnosis Onset Date Resolution Status Chest pain, rule out acute myocardial infarction resolved MGUS (monoclonal gammopathy of unknown significance) acute Encounter for palliative care acute MGUS (monoclonal gammopathy of unknown significance) acute AV fistula stenosis acute ASHD (arteriosclerotic heart disease) acute ESRD (end stage renal disease) on dialysis acute Mild episode of recurrent major depressive disorder acute Mixed hyperlipidemia acute Primary hypertension acute Type 1 diabetes mellitus with hyperglycemia acute [facility] Work Phone: Evaluation note* Diagnosis Onset Date Resolution Status MGUS (monoclonal gammopathy of unknown significance) acute Encounter for palliative care acute MGUS (monoclonal gammopathy of unknown significance) acute AV fistula stenosis acute Acute exacerbation of chroni c obstructive airways disease acute ASHD (arteriosclerotic heart disease) acute ESRD (end stage renal disease) on dialysis acute Primary hypertension acute Type 1 diabetes mellitus with hyperglycemia acute [facility] Work Phone: Evaluation note* Diagnosis ASHD (arteriosclerotic heart disease) Coronary atherosclerosis of unspecified type of vessel, [place] or graft Essential hypertension, benign Mixed hyperlipidemia History of VT (myocardial infarction) Old myocardial infarction Status post insertion of drug eluting coronary artery stent ESRD (end stage renal disease) on dialysis (Multi) End stage renal disease Current every day smoker Type 2 diabetes mellitus with chronic kidney disease on chronic dialysis, with long-term current use of insulin (Multi) BMI 22.0-22.9, adult documented in this encounter [facility] Work Phone: Evaluation note* Diagnosis Onset Date Resolution Status Encounter for palliative care acute MGUS (monoclonal gammopathy of unknown significance) acute AV fistula stenosis acute Acute exacerbation of chroni c obstructive airways disease acute ASHD (arteriosclerotic heart disease) acute ESRD (end stage renal disease) on dialysis acute Primary hypertension acute Type 1 diabetes mellitus with hyperglycemia acute AV fistula acute [facility] Work Phone: History and physical note Author Isidoro Mesa [facility] August 13, 2022 4:55am Note Date/Time August 13, 2022 4:18am [facility] [address] [place] [address] Hospitalist H&P Signed Patient: Yoel Werner MR#: [id number] : 1985 Acct:[id number] Age/Sex: 37 / M Adm Date: 2 Loc: Room: [address] [place] [address] Type: ADM INOo Attending Dr: Isidoro Mesa [...] 205/103 H 98 Room Air 08/13/22 02:20 12/26/22 03:30 08/13/22 03:30 08/13/22 03:30 08/13/22 03:30 [...] % (Auto) 29.2 % (.) 08/12/22 23:58 [place] % (Auto) 8.9 % (.) 08/12/22 23:58 Eos % (Auto) 2.7 % (.) 08/12/22 23:58 Baso % (Auto) 1.5 % (.) 08/12/22 23:58 Nucleat RBC Rel Count 0.1 /100 WBC (0-0.5) 08/12/22 23:58 Neut # (Auto) 3.1 x10E3/uL (1.8-7.7) 08/12/22 23:58 Lymph # (Auto) 1.6 x10E3/uL (1.00-4.8) 08/12/22 23:58 [place] # (Auto) 0.5 x10E3/uL (0.0-0.8) 08/12/22 23:58 [...] pH 5.5 (5.0-9.0) 08/13/22 00:49 Ur Specific [place] 1.011 (1.001-1.030) 08/13/22 00:49 Urine Protein 300 [...] See above Documented By: Isidoro Mesa DO 08/13/226 Signed By: <Electronically signed by Isidoro Mesa DO> 08/13/22 0455 [facility] Work Phone: History general Narrative - Reported* Type Description Date Medical History HYPERTENSION Medical History DIABETES MELLITUS TY PE 2 WITH HYPERGLYCEMIAGAD GENERALIZED ANXIETY DISORDER Medical History CHRONIC VENOUS INSUFFICIENCY Surgical History LEFT KNEE SURGERY Surgical History VASECTOMY Surgical History 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 Hospitalization History SEE ABOVE [employer] Other History general Narrative - Reported* Type [...] COMBINED SYSTOLIC AND DIASTOLIC HEART FAILURE 11/13/2021 [employer] Other [employer] general Narrative - Reported* Type Description Date [...] COMBINED SYSTOLIC AND DIASTOLIC HEART FAILURE 11/13/2021 [employer] Other history general Narrative - Reported* Type [...] HEART FAILURE 11/13/2021 Hospitalization History SYNCOPE 07/2022 [employer] Other history general Narrative - Reported* Type [...] 07/2022 Hospitalization History MINOR HEART ATTACK 2022 [employer] Other History general Narrative - Reported* Type [...] 07/2022 Hospitalization History MINOR HEART ATTACK 2022 [employer] Other [employer] general Narrative - Reported* Type Description Date [...] 07/2022 Hospitalization History MINOR HEART ATTACK 2022 [employer] Other [employer] general Narrative - ReportedNortMcKinnon & Clarke Other History general Narrative - Reported* Type [...] ATTACK 2022 Hospitalization History HEART ATTACK 12/2022 [employer] Other History general Narrative - ReportedNoMcKinnon & Clarke Other History general Narrative - Reported* Type [...] ATTACK 2022 Hospitalization History HEART ATTACK 12/2022 [employer] Other History general Narrative - Reported* Type Description Date Medical History HYPERTENSION Medical History DIABETES MELLITUS TY PE 2 WITH HYPERGLYCEMIAGAD GENERALIZED ANXIETY DISORDER Medical History CHRONIC VENOUS INSUFFICIENCY Medical History CHEST PAIN Medical History ELEVATED TROPONIN Medical History PINO (ACUTE KIDNEY INJURY) Medical History ANEMIA Medical History ACUTE COMBINED SYSTO LIC AND DIASTOLIC HEART FAILURE Medical History ANASARCA Medical History [...] History LHC, PCI/stent RCA x 2 01/2023 Surgical History COIL WITH HIS LT ARM FISTULA Hospitalization History SEE ABOVE Hospitalization History CHEST PAIN, PINO, ACUTE COMBINED SYSTOLIC AND DIASTOLIC HEART FAILURE 11/13/2021 Hospitalization History SYNCOPE 07/2022 Hospitalization History MINOR HEART ATTACK 2022 Hospitalization History HEART ATTACK 12/2022 [employer] Other Hospital course Narrative No data available for this section [facility] Hospital Discharge instructions Additional Instructions Continue current meds You may return at any time [facility] Hospital Discharge instructions Additional Instructions Follow-up with your primary care doctor [facility] to ED if develop worsening [facility] Discharge instructions Additional Instructions If your symptoms return/worsen or you develop any further concerns or symptoms please see your doctor or return to the emergency department immediately.[facility] Work Phone: Hospital Discharge instructions Additional Instructions Monitor glucose levels as before.[facility] Work Phone: Hospital Discharge instructions Additional Instructions [...] doctor or pharmacist, without first calling the leasing machine tender who implanted the stent. If you require [...] weight lifting, stair steppers, etc. until the leasing machine tender approves these activities. Check with the leasing machine tender on your first follow-up visit. CALL YOUR PHYSICIAN at [phone]: -If bleeding should occur from the catheter insertion site- apply pressure to the site then immediately call us. -Report any fever, redness, drainage, increased swelling, or firmness at the catheter insertion site. Some bruising or slight swelling may be present at the time of discharge. -Should arm or leg become cold, numb, white, or blue, contact the leasing machine tender immediately. -IF you should experience episodes of [...] is recommended. Please call Central Scheduling at [phone] to schedule your appointment.] The attending leasing machine tender or [facility] nurse clinician should provide you with specific instructions regarding activity, diet, medications, and further follow up for you. Follow the medication instructions provided on your discharge. If the dosages and instructions on this sheet differ from the dosage and instructions on the bottle, follow the instructions on the bottle. [facility] is not responsible for incorrect prescription information provided by the patient during their visit. Do not stop your medications without consulting your health care provider. Please take the list with you to your next doctor's appointment.[facility] Work Phone: Hospital Discharge instructions Additional Instructions Continue Hemodialysis as directed.[facility] Work Phone: Hospital Discharge instructions Additional Instructions You are leaving AGAINST MEDICAL ADVICE you are at risk for worsening chest pain shortness of breath heart attack heart failure coma Communicate with your primary care cardiology and renal doctors regarding symptoms Communicate with dialysis regarding your uncompleted treatment Continue regular medication Return to the ER for any worsening chest pain shortness of breath or any other concerns[facility] Work Phone: Progress note No data available for this section [facility] reason for referral (narrative) Referred by: Robyn GUERIN MD [facility] reason for referral (narrative)* Consultation (Routine) - Authorized Specialty Diagnoses / Procedures Referred By Chapis corral Referred To Contact Cardiology Diagnoses ASHD (arteriosclerotic heart disease) Procedures Follow Up In Cardiology Elder Gomez DO [address] [facility] [address] [place] [address] Jason Elder DO [place] [address] [facility] [address] [place] [address] Referral ID Status Reason Start Date Expiration Date V isits Requested Visits Authorized [id number] Authorized 12/03/2023 12/02/[address] [facility] [address] [facility] Work Phone: Reason for visit NarrativeREFERRED BY DR. MEJÍA, NEED FOR AV FISTULA, VEIN MAPPING ORDER SENT TO [facility] BY DR. MEJÍA'S OFFICE AND REFERRAL BEING SENTRowbot Systems Other Family History No Family History Records [...] Unknown Cerebrovascular accident (CVA) Unknown Diverticulitis Unknown father History of stroke Unknown Heart disease Unknown Hypertension Unknown Family history of mental disorder Unknown Not Specified Hypertension Unknown Relationship Condition Age at Onset Recorded Date/T frances Not Specified Disorder of liver Unknown Diabetes mellitus Unknown Malignant neoplasm of pancreas Unknown father Diverticulitis Unknown Hypertension Unknown Irritable bowel syndrome Unknown Cerebrovascular accident (CVA) Unknown Heart disease Unknown History of stroke Unknown Family history of mental disorder Unknown Chief Complaint and Reason for Visit Chief Complaint CHF, NStEMI, PCI R80.9 N04.9 I12.9 N18.30 N25.81 E11.22 I10 E10.65 Chief Complaint I10 E10.65 d64.9:R80.9;N04.9;I12.9;D63.1;N18.30;N25.81;E11.2l cp hx heart attack Chief Complaint I10 E10.65 d64.9:R80.9;N04.9;I12.9;D63.1;N18.30;N25.81;E11.2l cp hx heart attack N18.30 R80.9 I12.9 Chief Complaint I10 E10.65 d64.9:R80.9;N04.9;I12.9;D63.1;N18.30;N25.81;E11.2l cp hx [...] ACF, Uncontrolled HTN AFHD, CHF, Hx of VT Reason for Visit Anemia CAD (coronary artery [...] ACF, Uncontrolled HTN AFHD, CHF, Hx of VT AFHD, CHF, Hx of VT Reason for Visit Anemia CAD (coronary artery disease) Chest pain Chronic kidney disease, stage IV (severe) Diabetes GERD (gastroesophageal reflux disease) History of placement of stent in LAD coronary artery Hypertension Kidney failure Chief Complaint ESRD ESRD ESRD N18.5 I12.9 E87.5 D63.1 N25.81 R80.9 E11.22 left arm injury-recent fistula placed cp r/o ACF, Uncontrolled HTN AFHD, CHF, Hx of VT AFHD, CHF, Hx of VT N18.6 I12.9 E87.5 D63.1 N25.81 R80.9 E11.22 [...] Uncontro lled HTN AFHD, CHF, Hx of VT AFHD, CHF, Hx of VT N18.6 I12.9 E87.5 D63.1 N25.81 R80.9 E11.22 MONOCLONAL Reason for Visit Anemia CAD (coronary artery disease) Chest pain Chronic kidney disease, stage IV (severe) Diabetes GERD (gastroesophageal reflux disease) History of placement of stent in LAD coronary artery Hypertension Kidney failure MGUS (monoclonal gammopathy of unknown significance) Stage 3b chronic kidney disease (CKD) Chief Complaint AFHD, CHF, Hx of VT AFHD, CHF, Hx of VT N18.6 I12.9 E87.5 D63.1 N25.81 R80.9 E11.22 [...] Complaint T82.898A ESRD I82.898A ESRD N18.6 Z99.2 Chief Complaint I82.898A ESRD N18.6 Z99.2 Chest Pain Reason for Visit CAD (coronary artery disease) Chest pain, rule out acute myocardial infarction Diabetes mellitus ESRD (end stage renal disease) on dialysis Chief Complaint I82.898A ESRD N18.6 Z99.2 Chest Pain AVF Reason for Visit Chest pain, rule out acute myocardial infarction Chief Complaint Tbh/ 6 Month Check U p 1 Month Follow Up Chest Pain Issues With Fistula; Gfs Left Arm At 8:3 AVF MONOCLONAL Follow Up Chest pain Reason for Visit Chest pain, rule out acute myocardial infarction Chief Complaint 1 Month Follow Up Chest Pain Issues With Fistula; Gfs Left Arm At 8:3 AVF MONOCLONAL Follow Up Chest pain MGUS 3 month follow; Fistula Left Arm esrd esrd Reason for Visit ESRD (end stage rosie l disease) on dialysis Chest pain, rule out acute myocardial infarction MGUS (monoclonal gammopathy of unknown significance) Chronic pain syndrome Constipation Encounter for palliative care ESRD (end stage renal disease) on dialysis MGUS (monoclonal gammopathy of unknown significance) Nausea & vomiting AV fistula stenosis Chief Complaint Chest Pain Issues With Fistula; Gfs Left Arm At 8:3 AVF MONOCLONAL Follow Up Chest pain MGUS 3 month follow; Fistula Left Arm esrd esrd 3 month follow up Reason for Visit Chest pain, rule out acute myocardial infarction MGUS (monoclonal gammopathy of unknown significance) Encounter for palliative care MGUS (monoclonal gammopathy of unknown significance) AV fistula stenosis ASHD (arteriosclerotic heart disease) ESRD (end stage renal disease) on dialysis Mild episode of recurrent major depressive disorder Mixed hyperlipidemia Primary hypertension Type 1 diabetes mellitus with hyperglycemia Chief Complaint Issues With Fistula; Gfs Left Arm At 8:3 AVF MONOCLONAL Follow Up Chest pain MGUS 3 month follow; Fistula Left Arm esrd esrd 3 month follow up ESRD ESRD Reason for Visit MGUS (monoclonal aileen mopathy of unknown significance) Encounter for palliative care MGUS (monoclonal gammopathy of unknown significance) AV fistula stenosis Acute exacerbation of chronic obstructive airways disease ASHD (arteriosclerotic heart disease) ESRD (end stage renal disease) on dialysis Primary hypertension Type 1 diabetes mellitus with hyperglycemia Chief Complaint MGUS 3 month follow; Fistula Left Arm esrd esrd 3 month follow up ESRD ESRD F/U REV LEFT ARM AVF 11/26/23 Reason for Visit Encounter for pallia tive care MGUS (monoclonal gammopathy of unknown significance) AV fistula stenosis Acute exacerbation of chronic obstructive airways disease ASHD (arteriosclerotic heart disease) ESRD (end stage renal disease) on dialysis Primary hypertension Type 1 diabetes mellitus with hyperglycemia AV fistula Chief Complaint MGUS 3 month follow; Fistula Left Arm esrd esrd 3 month follow up ESRD ESRD F/U REV LEFT ARM AVF 11/26/23 Dialysis Labels Reason for Visit Encounter for pallia tive care MGUS (monoclonal gammopathy of unknown significance) AV fistula stenosis Acute exacerbation of chronic obstructive airways disease ASHD (arteriosclerotic heart disease) ESRD (end stage renal disease) on dialysis Primary hypertension Type 1 diabetes mellitus with hyperglycemia AV fistula Advance Directives No Advanced Directives Records Found [...] and is followed by nephrology. Hesustained anterior VT in October 2021 with primary revascularization of the LAD with residual circumflex and RCA disease. His left ventricular function at that time was 40 to 45%. He has underlying type 1 diabetes, progressive/chronic kidney disease as noted, ongoing tobacco use, class II angina. * Is [place] [employer] is class IIc and remains hemodynamically stable * Recommendations: Tobacco cessation counseling, initiate isosorbide 30 mg daily for known disease and angina complaints, limited echo to assess LV function, obtain lipid panel and high-sensitivity CRPwe will follow-up again in 6 months * YOEL WERNER is being seen for follow-up of a hospitalization for chest pain. [facility]. * 37-year-old gentleman returns following recent hospitalization for unstable angina and hypertensionand anxiety. We escalated his isosorbide and hydralazine and is feeling much better. * Patient has a prior history of anterior VT in October 2021 with primary revascularization of [...] We will review his angiogram from October last year simply to see if he has any targets for revascularization and otherwise follow-up in 3 to 4 months. * YOEL WERNER is being seen for follow-up of a hospitalization for chest pain. [facility]. * 37-year-old gentleman returns following recent hospitalization for unstable angina and hypertensionand anxiety. We escalated his isosorbide and hydralazine and is feeling much better. * Patient has a prior history of anterior VT in October 2021 with primary revascularization of [...] drug-eluting stents. He has had previous anterior VT with revascularization of the LAD. He has [...] drug-eluting stents. He has had previous anterior VT with revascularization of the LAD. He has [...] 6 months Summary Purpose Reason for Referral Specialty Diagnoses / Procedures Referred By Chapis corral Referred To Contact Diagnoses Internal derangement of left shoulder Procedures MR shoulder left wo IV contrast Nelida Carrington NP [address] [place] [address] Referral ID Status Reason Start Date Expiration Date V isits Requested Visits Authorized [id number] Pending Review 09/30/2023 03/28/2024 1 1 Reason Patient c/o Peyronie 's disease, decreased libido and ED Diagnosis 1 Peyronie's disease ( N48.6) Diagnosis 2 Decreased libido (R6 8.82) Diagnosis 3 Erectile dysfunction due to arterial insufficiency (N52.01) Referral Organization [facility] Fabian busby Referring Provider First Name Rolando Referring Provider Last Name Marshall Referring Provider Specialty Internal Me dicalexandra Referred Organization [facility] Referred Provider Robyn Guerin Referred Address [address] [facility],[place], [place],[address] Referred Provider Specialty Urology Referral Priority Routine [...] FOR VISIT (unrecogniz ed section and content) Reason Comments Follow-up 6m Reason Comments Follow-up LancetsReferralIssues with fistula; GFS Left arm at 8:86bqMzsqh8 month Follow uplab resultsTBH/ 6 Month Check Up2 WK S/P FISTULOGRAM; GFS LEFT ARM 07/02/23HAVING ARTERIAL SPASMS DURING TREATMENT AND COMPLAINING OF PAIN IN ARM AGAIN; GFS 9Ano energy, cough since this weekend [phone] MONTH FOLLOW UP; DIALYSIS PTUremia and AnemiaF/U FISTULOGRAMRENAL INJ RETACRIT7 WK F/U WITH GFS IN OFFICEHEARTCATHprescription refillF/U LT AVF CREATION 3WKhospital follow upCKD and HTN Reason Comments Returning Patient's Call RETACRIT INJClinicalREFILLAnemia and CKDCKD and AnemiaCKD , Proteinuria, Edema Care Teams (unrecognized sec tion and content) Team Status: Active Member Role Status Dates Rolando Olivares DO Primary Care Provider Active Team Status: Inactive Member Role Status Dates Rolando Olivares DO Primary Care Provider Active Start: October 17, 2023 End: October 17, 2023 Leslee Orellana APRN Attending Provider Active Start: October 17, 2023 End: October 17, 2023 Team Status: Inactive Member Role Status Dates Rolando Olivares DO Primary Care Provider Active Start: October 17, 2023 End: October 17, 2023 Romain Mendoza MD Attending Provider Active Start: October 17, 2023 End: October 17, 2023 Team Status: Inactive Member Role Status Laisha Olivares DO Primary Care Provider Active Start: October 31, 2023 End: October 31, 2023 Romain Mendoza MD Attending Provider Active Start: October 31, 2023 End: October 31, 2023 Team Status: Active Member Role Status Dates Rolando Olivares DO Primary Care Provider Active Start: October 31, 2023 Rmoain Mendoza MD Attending Prov ider, Other Provider Active Start: October 31, 2023 Team Status: Active Member Role Status Dates Rolando Olivares DO Primary Care Provider Active Start: November 10, 2023 Bryce Coy MD Attending Provider Active Star t: November 10, 2023 Team Status: Inactive Member Role Status Laisha Olivares DO Primary Care Provide r, Attending Provider Active Start: November 14, 2023 End: November 14, 2023 Team Status: Inactive Member Role Status Laisha Olivares DO Primary Care Provider Active Start: November 26, 2023 End: November 26, 2023 Romain Mendoza MD Attending Provider Active Start: November 26, 2023 End: November 26, 2023 Team Status: Active Member Role Status Laisha Olivares DO Primary Care Provider Active Start: November 26, 2023 Romain Mendoza MD Attending Prov ider, Other Provider Active Start: November 26, 2023 Team Status: Active Member Role Status Laisha Olivares DO Primary Care Provider Active Start: December 11, 2023 Nancy Haas MD Attending Provider Active Star t: December 11, 2023 Team Status: Inactive Member Role Status Laisha Olivares DO Primary Care Provider Active Start: January 09, 2024 End: January 09, 2024 Romain Mendoza MD Attending Provider Active Start: January 09, 2024 End: January 09, 2024 Team Status: Inactive Member Role Status Laisha Olivares DO Primary Care Provider Active Start: January 10, 2024 End: January 10, 2024 Angel Mejía MD Attending Provider Active Start : January 10, 2024 End: January 10, 2024 Team Status: Active Member Role Status Laisha Olivares DO Primary Care Provider Active Start: October 12, 2023 Nancy Haas MD Attending Provider Active Star t: October 12, 2023 Team Status: Inactive Member Role Status Rolando Olivares , DO Primary Care Provider Active Romain Mendoza MD Attending Provider Active Team Status: Active Member Role Status Dates Rolando Olivares , [...] Rene Gomez , DO Attending Provider Active Team [...] Younger MD Other Provider Active Christy Delarosa [facility]- Other Provider Active Jackie Ross MD Other Provider Active Justino Boss MD Attending Provider Active Team Status: Inactive Member Role Status Dates Robyn Gr , Emergency Provider Active Rolando Olivares , DO Primary Care Provider Active Evert Renae , Admit Provider Active Nargis Benítez RN Other [...] MD Other Provider Active Christy Delarosa , [facility] Other Provider Active Jackie Ross MD Other Provider Active Ross Catherine MD Attending Provider Active Team Status: Inactive Member Role Status Rolando Olivares , DO Primary Care Provider Active W Rene Gomez , DO Attending Provider Active Angel Mejía MD Other Provider Active Team Status: Inactive Member Role Status Rolando Olivares , DO Primary Care Provider Active Zina Childs , SCREED OPERATOR-C Attending Provider Active Team Status: Inactive Member Role Status Rolando Olivares , DO Primary Care Provider, Attending Pr ovider Active Team Status: Active Member Role Status Rolando Olivares , DO Primary Care Provider Active W Rene Gomez , DO Attending Provider Active Team Status: Inactive Member Role Status Rolando Olivares , DO Primary Care Provider Active Hector [...] Olivares , DO Primary Care Provider Active Govind Anderson MD Emergency Provider Active Team Status: Inactive Member Role Status Rolando Olivares , DO Primary Care Provider Active Yobani Hansen , DO Emergency Provider Active Team Status: Inactive Member Role Status Dates Zeus Bradley , DO Emergency Provider Active Rolando Olivares , DO Primary Care Provider Active Sole Stapler Welt Relationship Specialty Start Date End Date Rloando Olivares, DO [address] [place] [address] PCP - General Internal Medicine 10/01/21 Team Status: Active Member Role Status Rolando Olivares , DO Primary Care Provider Active Tenzin Ortiz Jr, MD Emergency Provider Active Isidoro Mesa , DO Admit Provider, Attending Provider Active Team Status: Inactive Member Role Status Rolando Olivares , DO Primary Care Provider Active Denilson Gomez , DO Attending Provider Active Cipriano Stiles MD Other Provider Active Team Status: Inactive Member Role Status Rolando Olivares , DO Primary Care Provider Active Tenzin Ortiz Jr, MD Emergency Provider Active Isidoro Mesa , DO Admit Provider Active Nancy Haas MD Other Provider Active Law Cano MD Attending Provider Active Team Status: Inactive Member Role Status Dates Rolando Olivares , Primary Care Provider Active Law Cano MD Attending Provider Active Angel Mejía MD Referring Provider Active Sole Stapler Welt Relationship Specialty Start Date End Date Rolando Olivares, [address] [place] [id number] PCP - General Internal Medicine 10/01/21 Team Status: Active Member Role Status Dates Robyn Gr , DO Emergency Provider Active Rolando Olivares , DO Primary Care Provider Active Evert Renae , DO Admit Provider, Attending Provider Active Team Status: Inactive Member Role Status Dates Rolando Olivares DO Primary Care Provider Active Law Cano MD Admit Provider Active Jorge Mederos , DO Attending Provider Active Elder Stewart MD Other Provider Active Bryce Coy MD Other Provider Active Sole Stapler Welt Relationship Specialty Start Date End Date Rolando Olivares MD [address] [place] [address] PCP - General Internal Medicine 07/18/23 Sole Stapler Welt Relationship Specialty Start Date End Date Rolando Olivares MD [address] [place] [address] PCP - General Internal Medicine 07/18/23 Team Status: Inactive Member Role Status Dates Rolando Olivares DO Attending Provider Active Sta rt: July 16, 2023 End: July 16, 2023 Team Status: Inactive Member Role Status Dates Rolando Olivares DO Attending Provider Active Sta rt: August 13, 2023 End: August 13, 2023 Team Status: Inactive Member Role Status Dates Rolando Olivares DO Primary Care Provider Active Start: August 18, 2023 End: August 18, 2023 Law Cano MD Admit Provider Active Start: August 18, 2023 End: August 18, 2023 Jorge Mederos DO Attending Provider Active Start: August 18, 2023 End: August 18, 2023 Elder Stewart MD Other Provider Active Start: August 18, 2023 End: August 18, 2023 Bryce Coy MD Other Provider Active Start: D malaika 2022 End: August 18, 2023 Team Status: Inactive Member Role Status Dates Romain Mendoza MD Attending Provider Active Start: August 29, 2023 End: August 29, 2023 Team Status: Inactive Member Role Status Dates Rolando Olivares DO Primary Care Provider Active Start: August 29, 2023 End: August 29, 2023 Romain Mendoza MD Attending Provider Active Start: August 29, 2023 End: August 29, 2023 Team Status: Active Member Role Status Dates Rolando Olivares DO Primary Care Provider Active Start: October 01, 2023 Jorej Small MD Active Start: [facility] 2023 Angel Mejía MD Referring Provider Active Start : October 01, 2023 Va Forte APRN Attending Provider Active Start: September Team Status: Inactive Member Role Status Dates Rolando Olivares DO Primary Care Provider Active Start: October 01, 2023 End: October 01, 2023 Va Forte APRN Attending Provider Active Start: September End: October 01, 2023 Team Status: Inactive Member Role Status Dates Rolando Olivares DO Primary Care Provider Active Start: October 02, 2023 End: October 02, 2023 Kavya Chapman [facility] Emergency Provider Active Start: October 02, 2023 End: October 02, 2023 Sole Stapler Welt Relationship Specialty Start Date End Date Rolando Olivares DO [address] [place] [address] PCP - General Internal Medicine 12/03/23 Elder Gomez DO [address] [facility] [address] [place] [address] Consulting Physician Cardiology 12/03/23 Goals (unrecognized section and content) Goals may be documented in a n alternate section Source Comments (unrecognize d section and content) In the event this informatio n is protected by the Federal Confidentiality of Alcohol and Drug Abuse Patient Records regulations: The Federal rules restrict any use of the information to criminally investigate or prosecute any alcohol or drug abuse patient.[facility] the event this information is protected by the Federal Confidentiality of Alcohol and Drug Abuse Patient Records regulations: The Federal rules restrict any use of the information to criminally investigate or prosecute any alcohol or drug abuse patient.[facility] (unrecognized sect ion and content) No Status Records FoundNo Status Records FoundNo Status Records FoundNo Status Records FoundNo Status Records FoundNo Status Records FoundNo Status Records FoundNo Status Records FoundNo Status Records Found INFORMATION SOURCE (unrecogn ized section and content) DATE CREATED AUTHOR 08/09/2022 [facility] DATE CREATED AUTHOR AUTHOR'S ORGANIZ ATION 09/11/2022 [facility] DATE CREATED AUTHOR AUTHOR'S ORGANIZ ATION 02/27/2023 [facility] DATE CREATED AUTHOR AUTHOR'S ORGANIZ ATION 02/27/2023 [employer] DATE CREATED AUTHOR AUTHOR'S ORGANIZ ATION 12/03/2023 [facility] DATE CREATED AUTHOR AUTHOR'S ORGANIZ ATION 12/20/2023 [facility] DATE CREATED AUTHOR AUTHOR'S ORGANIZ ATION 12/22/2023 [facility] DATE CREATED AUTHOR AUTHOR'S ORGANIZ ATION 01/12/2024 [facility] DATE CREATED AUTHOR AUTHOR'S ORGANIZ ATION 01/12/2024 [facility] FOR RECORDS PERTAINING TO PATIENTS WHO ARE [...] BE BASED ON THE PRIMARY CLINICAL RECORDS. [facility] [employer] provides no warranty or guarantee of the accuracy or completeness of information in this document.
[2024-01-13 07:44] LABS: Hemoglobin 11.1 g/dL (14.0-18.0)
== END 2024-01-13 07:26 | disposition home or self-care (01) ==
LOC: LAB 07:25
PROVIDERS: PCP Internal Medicine; Visit Provider Internal Medicine
DX: D63.1 Anemia in chronic kidney disease (principal)
CPT/HCPCS: 36415; 85018

== ENCOUNTER 2024-02-28 23:12 | Emergency (ER) | payer MEDICAID, BC, SELFPAY ==
[2024-02-28 23:30] VITALS: BP 190/100; PULSE 75; TEMP 36.7; O2SAT 96; BMI 20.8
[2024-02-29 00:14] VITALS: O2SAT 96
--- NOTE | 2024-02-29 00:21 | ED_ITS ---
HPI - SOB/Dyspnea General Chief Complaint: Shortness of Breath/Dyspnea Stated Complaint: cough Time Seen by Provider: 02/29/24 00:10 Source: patient Mode of arrival: walk-in Limitations: no limitations History of Present Illness HPI Narrative: daily smoker. presents complaining of cough and chest sore from coughing so much. States he has a history of heart disease and is not having that kind of pain. No fever. cough is dry. Describes post tussive emesis after coughing so much Related Data Home Medications ?Medication ?Instructions ?Recorded ?Confirmed aspirin 81 mg chewable tablet 1 tab PO DAILY 04/02/23 02/28/24 atorvastatin 80 mg tablet 80 mg PO DAILY 04/02/23 02/28/24 carvedilol 25 mg tablet 25 mg PO BID 04/02/23 02/28/24 clonidine HCl 0.1 mg tablet mg 04/02/23 clopidogrel 75 mg tablet 75 mg PO DAILY 04/02/23 02/28/24 famotidine 20 mg tablet 20 mg PO .hs 04/02/23 02/28/24 furosemide 40 mg tablet 40 mg PO DAILY 04/02/23 02/28/24 hydralazine 50 mg tablet 50 mg PO TID 04/02/23 02/28/24 insulin glargine 100 unit/mL (3 unit subcut 04/02/23 mL) subcutaneous pen (Lantus Solostar U-100 Insulin) insulin lispro 100 unit/mL subcut 04/02/23 subcutaneous pen (Humalog KwikPen (U-100) Insulin) isosorbide mononitrate 60 mg 60 mg PO BID 04/02/23 02/28/24 tablet,extended release 24 hr loratadine 10 mg tablet 10 mg PO Q24H 04/02/23 02/28/24 omeprazole 40 mg capsule,delayed 40 mg PO DAILY 04/02/23 02/28/24 release escitalopram oxalate 10 mg tablet 10 mg PO DAILY 02/28/24 02/28/24 (Lexapro) Previous Rx's ?Medication ?Instructions ?Recorded peg 3350-electrolytes 236 240 ml PO Q10M #4,000 mL 07/09/23 gram-22.74 gram-6.74 gram-5.86 gram solution (Golytely) Allergies Allergy/AdvReac Type Severity Reaction Status Date / Time No Known Drug Allergies Allergy Verified 02/28/24 23:36 Review of Systems ROS Status of ROS 10 or more systems reviewed and unremark able except as noted in history and below [facility] Social History Smoking status: Current every day smoker Exam Constitutional Vital Signs, click to edit/add: Last Vital Signs Temp 98.1 F 02/28/24 23:30 Pulse 80 02/29/24 02:31 Resp 20 02/29/24 02:31 BP 190/100 H 02/28/24 23:30 Pulse Ox 95 02/29/24 02:31 O2 Del Method Room Air 02/29/24 02:31 Common normals: no apparent distress, average body habitus, oriented x3, no limitations, healthy appearing, alert and well nourished HENCO Common normals: normocephalic and head/scalp atraumatic Eye Common normals: EOMs intact bilaterally and conjunctivae normal Respiratory Effort & inspection: audible wheezes Cardio Common normals: regular rate, regular rhythm, S1 normal heart sound and S2 normal heart sound GI Common normals: Normal to inspection, nondistended, normoactive bowel sounds present, soft to palpation and non-tender Extremity Common normals: normal to inspection and full ROM Neuro Common normals: oriented x3, CN's II-XII intact bilaterally, moves all extremities and no focal motor deficits Psych Appearance: grossly normal Course Vital Signs Vital signs: Vital Signs Temperature 98.1 F 02/28/24 23:30 Pulse Rate 75 02/28/24 23:30 Respiratory Rate 18 02/28/24 23:30 Blood Pressure 190/100 H 02/28/24 23:30 Pulse Oximetry 96 02/28/24 23:30 Oxygen Delivery Method Room Air 02/28/24 23:30 Temperature 98.1 F 02/28/24 23:30 Pulse Rate 80 02/29/24 02:31 Respiratory Rate 20 02/29/24 02:31 Blood Pressure 190/100 H 02/28/24 23:30 Pulse Oximetry 95 02/29/24 02:31 Oxygen Delivery Method Room Air 02/29/24 02:31 MDM - SOB/Dyspnea MDM Narrative Medical decision making narrative: patient presents complaining shortness of breath. Patient daily cigarette smoker and hemodialysis patient. Exam positive for diffuse wheeze. Patient treated in the department with solumedrol and duoneb x 2. cxray clear. Patient responded nicely to treatment and is now feeling better and requesting discharged. Discharged home with a prescription for prednisone Lab Data Labs: Lab Results 02/29/24 Range/Units 00:10 WBC 5.6 (4.0-11.0) 10^3/uL RBC 3.12 L (4.70-6.10) 10^6/uL Hgb 9.5 L (14.0-18.0) g/dL Hct 29.1 L (42.0-54.0) % MCV 93.3 (80.0-94.0) fL MCH 30.4 (25.9-34.0) pg MCHC 32.6 (29.9-35.2) g/dL RDW 14.5 (11.0-15.0) % Plt Count 116 L (150-450) 10^3/uL MPV 10.3 (9.5-13.5) fL Neut % (Auto) 69.5 (43.0-75.0) % Lymph % (Auto) 19.7 L (20.5-60.0) % Trigg % (Auto) 6.0 (1.7-12.0) % Eos % (Auto) 3.4 (0.9-7.0) % Baso % (Auto) 1.2 (0.2-2.0) % Neut # (Auto) 3.9 (1.4-6.5) 10^3/uL Lymph # (Auto) 1.1 L (1.2-3.8) 10^3/uL Trigg # (Auto) 0.3 (0.3-0.8) 10^3/uL Eos # (Auto) 0.2 (0.0-0.7) 10^3/uL Baso # (Auto) 0.1 (0.0-0.1) 10^3/uL Abs Immat Gran (auto) 0.01 (0.00-0.03) 10^3/uL Imm/Tot Granulo (auto) 0.2 (0.0-0.5) % Sodium 131 L (136-145) mmol/L Potassium 4.3 (3.5-5.1) mmol/L Chloride 95 L (98-107) mmol/L Carbon Dioxide 27.9 (21.0-32.0) mmol/L Anion Gap 12.4 BUN 43.0 H (7.0-18.0) mg/dL Creatinine 6.13 H* (0.70-1.30) mg/dL Est GFR ( Amer) 13 L (>=60) Est GFR (Non-Af Amer) 10 L (>=60) BUN/Creatinine Ratio 7.0 Glucose 346 H (74-106) mg/dL Calcium 8.2 L (8.5-10.1) mg/dL Imaging Data Chest x-ray: Radiologist's impression: ITS Impressions Chest X-Ray 02/29/24 00:23 IMPRESSION: Negative two-view chest. Electronically authenticated by: STEPHY MANRIQUEZ Date: 02/29/2024 01:53 Discharge Plan Discharge Stand Alone Forms: Portal Instructions Chief Complaint: Shortness of Breath/Dyspnea Clinical Impression: Acute exacerbation of chronic obstructive pulmonary disease (COPD) Patient Disposition: Home, Self-Care Mode of Transportation: Private Vehicle Prescriptions / Home Meds: No Action peg 3350-electrolytes [Golytely] 236-22.74-6.74 -5.86 gram recon soln 240 ml PO Q10M Qty: 4000 0RF Rx Instructions: until fecal effluent is clear escitalopram oxalate [Lexapro] 10 mg tablet 10 mg PO DAILY atorvastatin 80 mg tablet 80 mg PO DAILY aspirin 81 mg tablet,chewable 1 tab PO DAILY furosemide 40 mg tablet 40 mg PO DAILY carvedilol 25 mg tablet 25 mg PO BID clonidine HCl 0.1 mg tablet clopidogrel 75 mg tablet 75 mg PO DAILY omeprazole 40 mg capsule,delayed release(DR/EC) 40 mg PO DAILY isosorbide mononitrate 60 mg tablet extended release 24 hr 60 mg PO BID famotidine 20 mg tablet 20 mg PO .hs hydralazine 50 mg tablet 50 mg PO TID loratadine 10 mg tablet 10 mg PO Q24H insulin lispro [Humalog KwikPen Insulin] 100 unit/mL insulin pen SUBCUT insulin glargine [Lantus Solostar U-100 Insulin] 100 unit/mL (3 mL) insulin pen SUBCUT Print Language: Lithuanian Referrals: Rolando Kothari DO [Primary Care Provider] - 1 week Discharge Date/Time: 02/29/24 02:50
--- NOTE | 2024-02-29 00:23 | XR_ITS ---
[address] [address] Patient Name: VIKTORIYA TAMAYO MRN: [id number] date: 1985 Sex: M Assigned Patient Location: ER Current Patient Location: ER Accession/Order Number: [id number] Exam Date: 02/29/2024 00:33 Report Date: 02/29/2024 01:53 At the request of: HOLLIE HAWLEY Procedure: XR chest 2V EXAM: XR chest 2V HISTORY: cough . Symptoms x3 months. COMPARISON: None. TECHNIQUE: PA and lateral chest. FINDINGS: Both lungs are well aerated, expanded and clear. No consolidation, pneumothorax or pleural effusion. Well-defined pleural margins. Normal heart size and vasculature. Mediastinal contours are normal. Bony skeleton is intact and unremarkable. XR/XR chest 2V IMPRESSION: Negative two-view chest. Electronically authenticated by: STEPHY MANRIQUEZ Date: 02/29/2024 01:53
[2024-02-29 00:29] LABS: Basophils Absolute Auto 0.1 10^3/uL (0.0-0.1); Basophils Percent Auto 1.2 % (0.2-2.0); Eosinophils Absolute Auto 0.2 10^3/uL (0.0-0.7); Eosinophils Percent Auto 3.4 % (0.9-7.0); Hematocrit 29.1 % (42.0-54.0); Hemoglobin 9.5 g/dL (14.0-18.0); Immature Granulocytes Abs Auto 0.01 10^3/uL (0.00-0.03); Immature Granulocytes Pct Auto 0.2 % (0.0-0.5); Lymphocytes Absolute Auto 1.1 10^3/uL (1.2-3.8); Lymphocytes Percent Auto 19.7 % (20.5-60.0); Mean Corpuscular HGB Conc 32.6 g/dL (29.9-35.2); Mean Corpuscular Hemoglobin 30.4 pg (25.9-34.0); Mean Corpuscular Volume 93.3 fL (80.0-94.0); Mean Platelet Volume 10.3 fL (9.5-13.5); Monocytes Absolute Auto 0.3 10^3/uL (0.3-0.8); Neutrophils Absolute Auto 3.9 10^3/uL (1.4-6.5); Neutrophils Percent Auto 69.5 % (43.0-75.0); Platelet Count 116 10^3/uL (150-450); Red Blood Count 3.12 10^6/uL (4.70-6.10); Red Cell Distribution Width 14.5 % (11.0-15.0); White Blood Count 5.6 10^3/uL (4.0-11.0)
[2024-02-29 00:39] LABS: Anion Gap 12.4; Calcium 8.2 mg/dL (8.5-10.1); Carbon Dioxide 27.9 mmol/L (21.0-32.0); Chloride 95 mmol/L (98-107); Estimated GFR (African America 13 (>=60); Estimated GFR (Non-African Ame 10 (>=60); Glucose 346 mg/dL (74-106); Potassium 4.3 mmol/L (3.5-5.1); Sodium 131 mmol/L (136-145)
[2024-02-29] MEDS: IPRATROPIUM/ALBUTEROL SULFATE 3 ML AMPUL.NEB IH (00:44)
[2024-02-29 00:45] VITALS: PULSE 74; O2SAT 98
[2024-02-29] MEDS: METHYLPREDNISOLONE SOD SUCC PF 125 MG/2 ML VIAL IVP (00:56)
[2024-02-29 01:24] VITALS: PULSE 73; O2SAT 97
[2024-02-29 02:31] VITALS: PULSE 80; O2SAT 95
== END 2024-02-29 02:50 | disposition home or self-care (01) ==
PROVIDERS: Emergency Provider Internal Medicine; PCP Internal Medicine
DX: J44.1 Chronic obstructive pulmonary disease with (acute) exacerbation (principal); R06.02 Shortness of breath; F17.210 Nicotine dependence, cigarettes, uncomplicated; Z99.2 Dependence on renal dialysis
CPT/HCPCS: 36415; 71046; 80048; 85025; 94640; 99284; J2919

== ENCOUNTER 2024-05-14 08:46 | Outpatient (OUT) | payer MEDICARE, MEDICAID, SELFPAY ==
--- NOTE | 2024-05-14 09:03 | CT_ITS ---
[address] [address] Patient Name: VIKTORIYA TAMAYO MRN: [id number] date: 1985 Sex: M Assigned Patient Location: LAB Current Patient Location: LAB Accession/Order Number: [id number] Exam Date: 05/14/2024 09:15 Report Date: 05/14/2024 10:08 At the request of: EUSEBIO OLIVARES Procedure: CT angio chest EXAMINATION: CT angio chest HISTORY: Dyspnea R06.00 COMPARISON: No relevant comparison available. TECHNIQUE: Multi-planar CT images were created with IV contrast. Axial, Coronal, and Sagittal images. Dose reduction techniques were achieved by using automated exposure control and/or adjustment of mA and/or kV according to patient size and/or use of iterative reconstruction technique. 3-D reconstruction was performed on a separate workstation. FINDINGS: VASCULATURE: No pulmonary embolism or abnormal opacity. LUNGS: Trace amount of atelectasis or infiltrates within lingula. PLEURA: No mass, effusion, or pneumothorax. NATALY: No mass or adenopathy. MEDIASTINUM: No mass or adenopathy. CARDIAC: No enlargement, pericardial effusion, or pericardial thickening. AORTA: No aneurysm or dissection. CHEST WALL: No mass or axillary adenopathy. BONES: No bone lesion or fracture. LIMITED ABDOMEN: No suspicious findings. Limited images of the upper abdomen. OTHER: Negative. CT/CT angio chest IMPRESSION: 1. No pulmonary embolism. 2. Trace amount of lingular atelectasis, or less likely infiltrates. Lungs are otherwise clear. Electronically authenticated by: JOSH PRESSLEY Date: 05/14/2024 10:08
[2024-05-14 09:15] LABS: Estimated GFR (African America 16 (>=60); Estimated GFR (Non-African Ame 13 (>=60)
== END 2024-05-14 08:47 | disposition home or self-care (01) ==
LOC: LAB 08:46
PROVIDERS: PCP Internal Medicine; Visit Provider Internal Medicine
DX: N18.6 End stage renal disease (principal); R06.00 Dyspnea, unspecified
CPT/HCPCS: 36415; 71275; 82565; Q9967

== ENCOUNTER 2024-06-22 07:08 | Emergency (ER) | payer MEDICARE, MEDICAID, SELFPAY ==
[2024-06-22] VITALS (27 sets, daily range): BP systolic 150–200; BP diastolic 80–100; PULSE 58–74; TEMP 32.6–36.6; O2SAT 95–100; BMI 20.4
--- NOTE | 2024-06-22 07:13 | ECG_ITS ---
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
--- NOTE | 2024-06-22 07:13 | XR_ITS ---
The [address] [address] Patient Name: VIKTORIYA TAMAYO MRN: [id number] date: 1985 Sex: M Assigned Patient Location: ER Current Patient Location: ER Accession/Order Number: [id number] Exam Date: 06/22/2024 08:15 Report Date: 06/22/2024 08:33 At the request of: LESLIE CAMPBELL Procedure: XR acute abdomen series EXAMINATION: XR acute abdomen series HISTORY: vomiting COMPARISON: 07/09/2023 FINDINGS: LUNGS: No infiltrate, pneumothorax, or pleural effusion. MEDIASTINUM: No abnormal widening. BOWEL GAS PATTERN: Non-obstructed. Mild to moderate stool throughout the colon FREE AIR: None. CALCIFICATIONS: None significant. BONES: No fracture or visible bone lesion. OTHER: Negative. XR/XR acute abdomen series IMPRESSION: Clear lungs Nonobstructive bowel gas pattern Electronically authenticated by: JEREL MEJIA Date: 06/22/2024 08:33
--- NOTE | 2024-06-22 07:18 | ED_ITS ---
HPI HPI - General Adult General Chief complaint: Nausea/Vomiting/Diarrhea Stated complaint: GENERAL WEAKNESS/ LOW BLOOD SUGAR Time Seen by Provider: 06/22/24 07:12 History of Present Illness HPI narrative: 39-year-old male to the emergency department with chief complaint of hypoglycemia. Patient called EMS for himself this morning after he woke up cold and feeling that he had a low blood glucose. Upon EMS arrival the patient was found to be cold to the touch, blood glucose in the 40s, confused. EMS gave 2 oral glucose administration (~60gm), a Dr. Humphrey, 2 glasses of Ralph delight. They report that the patient continued to become more confused. They gave 1 mg IM glucagon at that time. Patient became combative and decision was made to transport to the ER at that point. POC glucose at time of transport was 200. Patient reports that he has been sick with nausea vomiting diarrhea for the last week. He reports little oral intake. Patient reports that he has continued to take his Lantus nightly which she did take last evening. He has not taken his lispro as far as he can remember. He is a dialysis patient. He has a fistula in his left forearm. His digital strategist is Dr. Rich at [facility]. He receives Saturday dialysis. Last dialyzed this last Saturday. Related Data Home Medications ?Medication ?Instructions ?Recorded ?Confirmed aspirin 81 mg chewable tablet 1 tab PO DAILY 04/02/23 06/22/24 atorvastatin 80 mg tablet 80 mg PO DAILY 04/02/23 06/22/24 carvedilol 25 mg tablet 25 mg PO BID 04/02/23 06/22/24 clonidine HCl 0.1 mg tablet mg 04/02/23 clopidogrel 75 mg tablet 75 mg PO DAILY 04/02/23 06/22/24 famotidine 20 mg tablet 20 mg PO .hs 04/02/23 06/22/24 furosemide 40 mg tablet 40 mg PO DAILY 04/02/23 06/22/24 hydralazine 50 mg tablet 50 mg PO TID 04/02/23 02/28/24 insulin glargine 100 unit/mL (3 unit subcut 04/02/23 mL) subcutaneous pen (Lantus Solostar U-100 Insulin) insulin lispro 100 unit/mL subcut 04/02/23 subcutaneous pen (Humalog KwikPen (U-100) Insulin) isosorbide mononitrate 60 mg 60 mg PO BID 04/02/23 02/28/24 tablet,extended release 24 hr loratadine 10 mg tablet 10 mg PO Q24H 04/02/23 02/28/24 omeprazole 40 mg capsule,delayed 40 mg PO DAILY 04/02/23 02/28/24 release escitalopram oxalate 10 mg tablet 10 mg PO DAILY 02/28/24 02/28/24 (Lexapro) Previous Rx's ?Medication ?Instructions ?Recorded peg 3350-electrolytes 236 240 ml PO Q10M #4,000 mL 07/09/23 gram-22.74 gram-6.74 gram-5.86 gram solution (Golytely) Allergies Allergy/AdvReac Type Severity Reaction Status Date / Time No Known Drug Allergies Allergy Verified 02/28/24 23:36 Opioid HPI Opioid Management Most Recent Opioid Data: Last Pain Scale 8 06/22/24 08:26 06/22/24 Last ED Pain Assessment 06/22/24 07:31 Last MAR Pain Assessment 06/22/24 08:26 Review of Systems ROS Status of ROS 10 or more systems reviewed and unremark able except as noted in history and below PFSH PFS Social History Smoking status: Current every day smoker Exam Narrative Exam Narrative: VITALS: I have reviewed the triage vital signs. GENERAL: Shivering adult male answering questions. NEURO: Alert and oriented x3, mild situational confusion. Moves all extremities. Face is symmetric and expressive. EYES: PERRL. No scleral icterus or conjunctival injection. No discharge. HENT: Normocephalic, atraumatic. Hearing is grossly intact. Nares grossly patent and without discharge. Mucous membranes moist. NECK: No JVD. Patient moves neck without restriction. CARDIO: Rhythm regular. Normal rate. No murmur, rub, or gallop. Pulses equal bilaterally in the upper and lower extremity. No lower extremity edema. PULM: Lungs clear to auscultation in all rm. No wheezes, rales, or rhonchi. No conversational dyspnea. No splinting, stridor, or accessory muscle use. GI/: Abdomen is soft and non-tender. Normoactive bowel sounds. EXTREMITIES: Symmetric muscle bulk. No joint swelling. No clubbing, cyanosis, or deformity. Fistula in the left forearm with audible and palpable thrill. SKIN: Cool and moist. Normal turgor. No rash or lesions appreciated. PSYCH: Mood, affect, and interaction is appropriate to the setting. Constitutional Vital Signs, click to edit/add: Last Vital Signs Temp 97.4 F L 06/22/24 09:41 Pulse 65 06/22/24 09:41 Resp 17 06/22/24 09:41 BP 150/80 H 06/22/24 09:41 Pulse Ox 96 06/22/24 09:41 O2 Del Method Room Air 06/22/24 09:41 Course Vital Signs Vital signs: Vital Signs Temperature 90.7 F L 06/22/24 07:13 Pulse Rate 74 06/22/24 07:13 Respiratory Rate 18 06/22/24 07:13 Blood Pressure 200/100 H 06/22/24 07:13 Pulse Oximetry 100 06/22/24 07:13 Oxygen Delivery Method Room Air 06/22/24 07:13 Temperature 97.4 F L 06/22/24 09:41 Pulse Rate 65 06/22/24 09:41 Respiratory Rate 17 06/22/24 09:41 Blood Pressure 150/80 H 06/22/24 09:41 Pulse Oximetry 96 06/22/24 09:41 Oxygen Delivery Method Room Air 06/22/24 09:41 Medical Decision Making [facility] Narrative Medical decision making narrative: 39-year-old male diabetic on insulin, end-stage renal disease on dialysis MWF to the emergency department with chief complaint of hypoglycemia. He is hypothermic, otherwise stable vitals. Rectal temperature confirms hypothermia. He was placed on warming blanket. Will continue D10 at this time. Lab work ordered. CBC without acute abnormality. Chemistry shows his baseline end-stage disease. No hyperkalemia. His lactate is elevated 2.6. Lipase normal. Troponin normal. EKG without evidence of ischemia. Abdominal series without any evidence of obstruction or acute process in the chest. Patient remains on the bear hugger for his hypothermia. His mentation has improved he is now alert and oriented, GCS 15. He did miss dialysis this morning, and complete dialysis on Saturday. Repeat blood glucose 251, I did decrease his D10 to 75 mL/h. Will continue his home blood glucose checks every hour. Temperature checks every hour. Patient will need transfer due to his missing dialysis. We will engage [facility] for his transfer given this is his usual hospital/or his digital strategist Dr. Hilario cormier. Case was discussed with Dr. Valenzuela, hospitalist at [facility], who accepted the patient to his service. 0947: Patient is now hyperglycemic. Tolerating oral intake. Will discontinue the D10. Will continue blood glucose checks. He is alert and oriented, GCS 15. His temperature is improved. Medical Records Medical records reviewed: Yes I reviewed the patient's medical records Lab Data Lab results reviewed: Yes I reviewed the patient's lab results Labs: Lab Results 06/22/24 06/22/24 06/22/24 Range/Units 07:21 07:27 08:28 WBC 6.8 (4.0-11.0) 10^3/uL RBC 4.35 L (4.70-6.10) 10^6/uL Hgb 13.1 L (14.0-18.0) g/dL Hct 39.9 L (42.0-54.0) % MCV 91.7 (80.0-94.0) fL MCH 30.1 (25.9-34.0) pg MCHC 32.8 (29.9-35.2) g/dL RDW 13.4 (11.0-15.0) % Plt Count 143 L (150-450) 10^3/uL MPV 9.9 (9.5-13.5) fL Neut % (Auto) 77.8 H (43.0-75.0) % Lymph % (Auto) 14.0 L (20.5-60.0) % Moffat % (Auto) 3.1 (1.7-12.0) % Eos % (Auto) 3.7 (0.9-7.0) % Baso % (Auto) 1.3 (0.2-2.0) % Neut # (Auto) 5.3 (1.4-6.5) 10^3/uL Lymph # (Auto) 1.0 L (1.2-3.8) 10^3/uL Moffat # (Auto) 0.2 L (0.3-0.8) 10^3/uL Eos # (Auto) 0.3 (0.0-0.7) 10^3/uL Baso # (Auto) 0.1 (0.0-0.1) 10^3/uL Abs Immat Gran (auto) 0.01 (0.00-0.03) 10^3/uL Imm/Tot Granulo (auto) 0.1 (0.0-0.5) % VBG pH 7.259 L (7.330-7.430) VBG pCO2 52.6 H (40.0-52.0) mmHg Sodium 142 (136-145) mmol/L Potassium 4.4 (3.5-5.1) mmol/L Chloride 102 (98-107) mmol/L Carbon Dioxide 22.7 (21.0-32.0) mmol/L Anion Gap 21.7 BUN 63.0 H (7.0-18.0) mg/dL Creatinine 8.68 H* (0.70-1.30) mg/dL Est GFR ( Amer) 8 L (>=60 mL/min/1.73m^2) Est GFR (Non-Af Amer) 7 L (>=60 mL/min/1.73m^2) BUN/Creatinine Ratio 7.3 Glucose 127 H (74-106) mg/dL Lactate 2.6 H* (0.4-2.0) mmol/L Calcium 9.4 (8.5-10.1) mg/dL Phosphorus 5.4 H (2.6-4.7) mg/dL Magnesium 2.3 (1.8-2.4) mg/dL Total Bilirubin 0.6 (0.2-1.0) mg/dL AST 16 (15-37) U/L ALT 11 L (16-63) U/L Alkaline Phosphatase 100 (46-116) U/L Troponin I High Sens 50.4 (4.0-76.1) pg/mL Total Protein 7.9 (6.4-8.2) g/dL Albumin 3.7 (3.4-5.0) g/dL Globulin 4.2 g/dL Albumin/Globulin Ratio 0.9 Lipase 12.0 L (16.0-77.0) U/L Ethanol Quant <3 mg/dL POC Glucose 133 H 251 H (74-106) mg/dL 06/22/24 Range/Units 09:39 WBC (4.0-11.0) 10^3/uL RBC (4.70-6.10) 10^6/uL Hgb (14.0-18.0) g/dL Hct (42.0-54.0) % MCV (80.0-94.0) fL MCH (25.9-34.0) pg MCHC (29.9-35.2) g/dL RDW (11.0-15.0) % Plt Count (150-450) 10^3/uL MPV (9.5-13.5) fL Neut % (Auto) (43.0-75.0) % Lymph % (Auto) (20.5-60.0) % Moffat % (Auto) (1.7-12.0) % Eos % (Auto) (0.9-7.0) % Baso % (Auto) (0.2-2.0) % Neut # (Auto) (1.4-6.5) 10^3/uL Lymph # (Auto) (1.2-3.8) 10^3/uL Moffat # (Auto) (0.3-0.8) 10^3/uL Eos # (Auto) (0.0-0.7) 10^3/uL Baso # (Auto) (0.0-0.1) 10^3/uL Abs Immat Gran (auto) (0.00-0.03) 10^3/uL Imm/Tot Granulo (auto) (0.0-0.5) % VBG pH (7.330-7.430) VBG pCO2 (40.0-52.0) mmHg Sodium (136-145) mmol/L Potassium (3.5-5.1) mmol/L Chloride (98-107) mmol/L Carbon Dioxide (21.0-32.0) mmol/L Anion Gap BUN (7.0-18.0) mg/dL Creatinine (0.70-1.30) mg/dL Est GFR ( Amer) (>=60 mL/min/1.73m^2) Est GFR (Non-Af Amer) (>=60 mL/min/1.73m^2) BUN/Creatinine Ratio Glucose (74-106) mg/dL Lactate (0.4-2.0) mmol/L Calcium (8.5-10.1) mg/dL Phosphorus (2.6-4.7) mg/dL Magnesium (1.8-2.4) mg/dL Total Bilirubin (0.2-1.0) mg/dL AST (15-37) U/L ALT (16-63) U/L Alkaline Phosphatase (46-116) U/L Troponin I High Sens (4.0-76.1) pg/mL Total Protein (6.4-8.2) g/dL Albumin (3.4-5.0) g/dL Globulin g/dL Albumin/Globulin Ratio Lipase (16.0-77.0) U/L Ethanol Quant mg/dL POC Glucose 368 H (74-106) mg/dL Imaging Data Chest x-ray: Attestation: I have reviewed the pertinent imaging results. Radiologist's impression: ITS Impressions Chest/Abdomen X-ray 06/22/24 07:13 IMPRESSION: Clear lungs Nonobstructive bowel gas pattern Electronically authenticated by: JEREL MEJIA Date: 06/22/2024 08:33 ECG Data Attestation: I personally reviewed and interpreted this ECG as follows: (Normal sinus rhythm at a rate of 72. No STEMI. Normal QTc. ) Critical Care Time Critical Care Time Critical Care Time: Yes Total Critical Care Time: 35 Attestation: Critical Care Procedure Note Authorized and Performed by: Clay Bryant DO Total critical care time: 35 min Due to a high probability of clinically significant, life threatening deterioration, the patient required my highest level of preparedness to intervene emergently and I personally spent this critical care time directly and personally managing the patient. This critical care time included obtaining a history; examining the patient; pulse oximetry; ordering and review of studies; arranging urgent treatment with development of a management plan; evaluation of patient's response to treatment; frequent reassessment; and, discussions with other providers. This critical care time was performed to assess and manage the high probability of imminent, life-threatening deterioration that could result in multi-organ failure. It was exclusive of separately billable procedures and treating other patients and teaching time. Please see MDM section and the rest of the note for further information on patient assessment and treatment. Discharge Plan Discharge Chief Complaint: Nausea/Vomiting/Diarrhea Clinical Impression: Nausea and vomiting, Hypoglycemia, Hypothermia Patient Disposition: [facility] Time of Disposition Decision: 08:55 Discharge Location: [facility] Discharge location: [facility] [place] [facility] Condition: Serious Mode of Transportation: EMS
[2024-06-22 07:21] LABS: Glucometer 133 mg/dL (74-106)
[2024-06-22 07:34] LABS: Basophils Absolute Auto 0.1 10^3/uL (0.0-0.1); Basophils Percent Auto 1.3 % (0.2-2.0); Eosinophils Absolute Auto 0.3 10^3/uL (0.0-0.7); Eosinophils Percent Auto 3.7 % (0.9-7.0); Hematocrit 39.9 % (42.0-54.0); Hemoglobin 13.1 g/dL (14.0-18.0); Immature Granulocytes Abs Auto 0.01 10^3/uL (0.00-0.03); Immature Granulocytes Pct Auto 0.1 % (0.0-0.5); Mean Corpuscular HGB Conc 32.8 g/dL (29.9-35.2); Mean Corpuscular Hemoglobin 30.1 pg (25.9-34.0); Mean Corpuscular Volume 91.7 fL (80.0-94.0); Mean Platelet Volume 9.9 fL (9.5-13.5); Monocytes Absolute Auto 0.2 10^3/uL (0.3-0.8); Monocytes Percent Auto 3.1 % (1.7-12.0); Neutrophils Absolute Auto 5.3 10^3/uL (1.4-6.5); Neutrophils Percent Auto 77.8 % (43.0-75.0); Platelet Count 143 10^3/uL (150-450); Red Blood Count 4.35 10^6/uL (4.70-6.10); Red Cell Distribution Width 13.4 % (11.0-15.0); White Blood Count 6.8 10^3/uL (4.0-11.0)
[2024-06-22 07:37] LABS: PCO2 VBG 52.6 mmHg (40.0-52.0); pH VBG 7.259 (7.330-7.430)
[2024-06-22] MEDS: DEXTROSE 10 % IN WATER 1,000 ML 150 ML IV (07:37)
[2024-06-22] MEDS: ONDANSETRON PF 4 MG/2 ML VIAL IV (07:41)
[2024-06-22 07:58] LABS: Phosphorus 5.4 mg/dL (2.6-4.7)
[2024-06-22 08:05] LABS: Alanine Aminotransferase 11 U/L (16-63); Albumin Globulin Ratio 0.9; Albumin Level 3.7 g/dL (3.4-5.0); Alkaline Phosphatase 100 U/L (46-116); Anion Gap 21.7; Aspartate Amino Transferase 16 U/L (15-37); BUN Creatinine Ratio 7.3; Bilirubin Total 0.6 mg/dL (0.2-1.0); Calcium 9.4 mg/dL (8.5-10.1); Carbon Dioxide 22.7 mmol/L (21.0-32.0); Chloride 102 mmol/L (98-107); Estimated GFR (African America 8 (>=60 mL/min/1.73m^2); Estimated GFR (Non-African Ame 7 (>=60 mL/min/1.73m^2); Ethanol <3 mg/dL; Globulin 4.2 g/dL; Glucose 127 mg/dL (74-106); Magnesium 2.3 mg/dL (1.8-2.4); Potassium 4.4 mmol/L (3.5-5.1); Sodium 142 mmol/L (136-145); Total Protein 7.9 g/dL (6.4-8.2); Troponin I High Sensitivity 50.4 pg/mL (4.0-76.1)
[2024-06-22 08:14] LABS: Lactate/Lactic Acid 2.6 mmol/L (0.4-2.0)
[2024-06-22] MEDS: ACETAMINOPHEN 325 MG TABLET 650 MG PO (08:26)
[2024-06-22 08:36] LABS: Glucometer 251 mg/dL (74-106)
[2024-06-22 09:44] LABS: Glucometer 368 mg/dL (74-106)
[2024-06-22 11:01] LABS: Lactate/Lactic Acid 0.8 mmol/L (0.4-2.0)
[2024-06-22 11:28] LABS: Glucometer 389 mg/dL (74-106)
[2024-06-22 11:44] LABS: Bilirubin Urine NEGATIVE (NEGATIVE); Blood Urine SMALL (NEGATIVE); Clarity Urine CLEAR (CLEAR); Color Urine LT. YELLOW (YELLOW); Glucose Urine UA 500 mg/dL (NEGATIVE); Ketones Urine NEGATIVE (NEGATIVE); Leukocyte Esterase Urine NEGATIVE (NEGATIVE); Nitrite Urine NEGATIVE (NEGATIVE); Protein Urine >=300 mg/dL (NEG/TRACE); Urobilinogen Urine 0.2 EU/dL (0.2-1.0); pH Urine 7.5 (5.0-9.0)
[2024-06-22 11:48] LABS: Urine Microscopic Indicated YES
[2024-06-22 11:53] LABS: Bacteria Urine TRACE #/HPF (NONE SEEN); Mucus Urine SMALL (NONE SEEN); WBC Urine 0-2 #/HPF (NONE SEEN)
[2024-06-22 11:54] LABS: Cast Seen? NONE SEEN #/LPF (NONE SEEN); Crystals Seen? None Seen #/HPF (None Seen); Squamous Epithelial Cell Urine RARE #/LPF (NONE/RARE)
== END 2024-06-22 11:40 | disposition short-term general hospital (02) ==
PROVIDERS: Emergency Provider Student in an Organized Health Care Education/Training Program; PCP Internal Medicine
DX: E11.649 Type 2 diabetes mellitus with hypoglycemia without coma (principal); Z79.4 Long term (current) use of insulin; Z99.2 Dependence on renal dialysis; F17.200 Nicotine dependence, unspecified, uncomplicated; E11.22 Type 2 diabetes mellitus with diabetic chronic kidney disease; N18.6 End stage renal disease; R68.0 Hypothermia, not associated with low environmental temperature; R11.2 Nausea with vomiting, unspecified; R41.0 Disorientation, unspecified
CPT/HCPCS: 36415; 74022; 80053; 80320; 81001; 82800; 82948; 83605; 83690; 83735; 84100; 84484; 85025; 93005; 96361; 96374; 99285; J2405

== ENCOUNTER 2024-10-01 18:35 | Emergency (ER) | payer MEDICARE, MEDICAID, SELFPAY ==
[2024-10-01 18:48] VITALS: BP 180/85; PULSE 80; TEMP 36.8; O2SAT 100; BMI 21.8
--- NOTE | 2024-10-01 18:57 | ED_ITS ---
HPI HPI - Extremity Injury (Lower) General Chief Complaint: Extremity Injury, Lower Stated Complaint: FALL Time Seen by Provider: 10/01/24 18:54 Mode of arrival: walk-in History of Present Illness HPI Narrative: 39 year old male presents to the ED for pain to his right hip, right knee, and right ankle s/p slip and fall on ice today. Denies hitting his head and LOC. Denies pain to his head, neck, back. Denies N/T to his extremities. Denies change in bowel and/or bladder control. Related Data Home Medications ?Medication ?Instructions ?Recorded ?Confirmed aspirin 81 mg chewable tablet 1 tab PO DAILY 04/02/23 06/22/24 atorvastatin 80 mg tablet 80 mg PO DAILY 04/02/23 06/22/24 carvedilol 25 mg tablet 25 mg PO BID 04/02/23 06/22/24 clonidine HCl 0.1 mg tablet mg 04/02/23 clopidogrel 75 mg tablet 75 mg PO DAILY 04/02/23 06/22/24 famotidine 20 mg tablet 20 mg PO .hs 04/02/23 06/22/24 furosemide 40 mg tablet 40 mg PO DAILY 04/02/23 06/22/24 hydralazine 50 mg tablet 50 mg PO TID 04/02/23 02/28/24 insulin glargine 100 unit/mL (3 unit subcut 04/02/23 mL) subcutaneous pen (Lantus Solostar U-100 Insulin) insulin lispro 100 unit/mL subcut 04/02/23 subcutaneous pen (Humalog KwikPen (U-100) Insulin) isosorbide mononitrate 60 mg 60 mg PO BID 04/02/23 02/28/24 tablet,extended release 24 hr loratadine 10 mg tablet 10 mg PO Q24H 04/02/23 02/28/24 omeprazole 40 mg capsule,delayed 40 mg PO DAILY 04/02/23 02/28/24 release escitalopram oxalate 10 mg tablet 10 mg PO DAILY 02/28/24 02/28/24 (Lexapro) Previous Rx's ?Medication ?Instructions ?Recorded peg 3350-electrolytes 236 240 ml PO Q10M #4,000 mL 07/09/23 gram-22.74 gram-6.74 gram-5.86 gram solution (Golytely) hydrocodone 5 mg-acetaminophen 325 1 tab PO Q8H PRN pain 3 days #9 10/01/24 mg tablet tabs Allergies Allergy/AdvReac Type Severity Reaction Status Date / Time No Known Drug Allergies Allergy Verified 02/28/24 23:36 Opioid HPI Opioid Management Most Recent Pain and Opioid Data: Last Pain Scale 8 06/22/24 08:26 06/22/24 Review of Systems ROS Constitutional Denies: fever or chills Eyes Denies: change in vision Ears, nose, mouth, and throat Denies: neck pain Cardiovascular Denies: chest pain Respiratory Denies: shortness of breath Gastrointestinal Denies: abdominal pain, nausea or vomiting Musculoskeletal Reports: extremity pain; Denies: back pain or neck pain Neurological Denies: headache, numbness in extremities, weakness in extremities or dizziness PFSH PFS Social History Smoking status: Current every day smoker Little interest or pleasure in doing things: not at all Feeling down, depressed, or hopeless: not at all Exam Constitutional Vital Signs, click to edit/add: Last Vital Signs Temp 98.2 F 10/01/24 18:48 Pulse 80 10/01/24 18:48 Resp 18 10/01/24 18:48 BP 180/85 H 10/01/24 18:48 Pulse Ox 100 10/01/24 18:48 Common normals: no apparent distress and oriented x3 General appearance: cooperative Eye Common normals: PERRL, conjunctivae normal and no scleral icterus Neck & C-Spine Common normals: supple Cervical spine: no cervical spine tenderness, no paracervical muscle tenderness and no paracervical muscle spasm Respiratory Common normals: normal respiratory effort Effort & inspection: able to speak in complete sentences and symmetric chest movement Cardio Common normals: regular rate Peripheral pulses: posterior tibial pulses present and dorsalis pedis pulses present Back & Pelvis Thoracic spine/upper back: normal to inspection; no thoracic spinal tenderness, no paraspinal muscle tenderness and no paraspinal muscle spasm Lumbar spine/lower back: normal to inspection; no lumbar spinal tenderness, no paraspinal muscle tenderness and no paraspinal muscle spasm Extremity Other: Tenderness to right hip, knee, and lateral ankle. Mild swelling right lateral hip. No swelling or deformity to right knee or ankle. Distal sensation intact. Pedal pulses palpable. No tenderness over Achilles. Neuro Common normals: oriented x3 and moves all extremities Sensorium/orientation: awake and alert Speech: speech normal Course Vital Signs Vital signs: Vital Signs Temperature 98.2 F 10/01/24 18:48 Pulse Rate 80 10/01/24 18:48 Respiratory Rate 18 10/01/24 18:48 Blood Pressure 180/85 H 10/01/24 18:48 Pulse Oximetry 100 10/01/24 18:48 Temperature 98.2 F 10/01/24 18:48 Pulse Rate 80 10/01/24 18:48 Respiratory Rate 18 10/01/24 18:48 Blood Pressure 180/85 H 10/01/24 18:48 Pulse Oximetry 100 10/01/24 18:48 MDM - Extremity Injury (Lower) MDM Narrative Medical decision making narrative: X-rays of the right hip, right knee, and right ankle were completed. Imaging was reviewed by the ED attending Dr. Valencia. She reported no fractures were noted. Findings were discussed with the patient. He requested crutches. He was fitted for crutches and teaching was done. Follow up with pcp, an orthopedist, and a farm loan inspector for further evaluation and treatment. Differential Diagnosis Differential diagnosis: Likely ankle sprain and strain, acute internal derangement of knee and other (knee sprain/strain/fracture, hip contusion/fracture) Medical Records Attestation: I reviewed the patient's medical records. Imaging Data XR: Radiologist's impression: ITS Impressions Knee X-Ray 10/01/24 18:57 IMPRESSION: No acute fracture or traumatic malalignment. Electronically authenticated by: MAYLIN PACHECO Date: 10/01/2024 21:12 Discharge Plan Discharge Chief Complaint: Extremity Injury, Lower Clinical Impression: Contusion of hip, right, Injury of knee, Right ankle sprain Patient Disposition: Home, Self-Care Time of Disposition Decision: 21:12 Condition: Good Mode of Transportation: Private Vehicle Prescriptions / Home Meds: New hydrocodone-acetaminophen 5-325 mg tablet 1 tab PO Q8H PRN (Reason: pain) 3 Days Qty: 9 0RF No Action peg 3350-electrolytes [Golytely] 236-22.74-6.74 -5.86 gram recon soln 240 ml PO Q10M Qty: 4000 0RF Rx Instructions: until fecal effluent is clear escitalopram oxalate [Lexapro] 10 mg tablet 10 mg PO DAILY atorvastatin 80 mg tablet 80 mg PO DAILY aspirin 81 mg tablet,chewable 1 tab PO DAILY furosemide 40 mg tablet 40 mg PO DAILY carvedilol 25 mg tablet 25 mg PO BID clonidine HCl 0.1 mg tablet clopidogrel 75 mg tablet 75 mg PO DAILY omeprazole 40 mg capsule,delayed release(DR/EC) 40 mg PO DAILY isosorbide mononitrate 60 mg tablet extended release 24 hr 60 mg PO BID famotidine 20 mg tablet 20 mg PO .hs hydralazine 50 mg tablet 50 mg PO TID loratadine 10 mg tablet 10 mg PO Q24H insulin lispro [Humalog KwikPen Insulin] 100 unit/mL insulin pen SUBCUT insulin glargine [Lantus Solostar U-100 Insulin] 100 unit/mL (3 mL) insulin pen SUBCUT Print Language: Kinyarwanda Instructions: Ankle Sprain (ED), Crutch Instructions (ED), Contusion in Adults (ED), P.R.I.C.E. Treatment (ED) Additional Instructions: Return to the ER for worsening symptoms. Referrals: Rolando Kothari DO [Primary Care Provider] - 1 week Anup Lazo DPM [Physician] - 1 week Shivam Vázquez MD [Physician] - 1 week
--- NOTE | 2024-10-01 18:57 | XR_ITS ---
The [place] [id number] Patient Name: VIKTORIYA TAMAYO MRN: [id number] date: 1985 Sex: M Assigned Patient Location: ER Current Patient Location: ER Accession/Order Number: [id number] Exam Date: 10/01/2024 19:10 Report Date: 10/01/2024 21:18 At the request of: CHELSY HOWE Procedure: XR hip RT 2V w/ pelvis EXAMINATION: XR hip RT 2V w/ pelvis, , 10/01/2024 4:10 PM PST INDICATION: pain, fall HISTORY: Ordering Provider Reason for Exam: pain, fall Technologist Note: Additional: COMPARISON: None. TECHNIQUE: Right hip x-ray: 2 view(s). FINDINGS: No acute fracture. Joint alignment is anatomic. Joint spaces are preserved. Soft tissues are within normal limits. XR/XR hip RT 2V w/ pelvis IMPRESSION: No acute fracture or traumatic malalignment. Electronically authenticated by: MAYLIN PACHECO Date: 10/01/2024 21:18
--- NOTE | 2024-10-01 18:57 | XR_ITS ---
The [address] [address] Patient Name: VIKTORIYA TAMAYO MRN: [id number] date: 1985 Sex: M Assigned Patient Location: ER Current Patient Location: ER Accession/Order Number: [id number] Exam Date: 10/01/2024 19:10 Report Date: 10/01/2024 21:15 At the request of: CHELSY HOWE Procedure: XR ankle RT min 3V HISTORY: pain, fall COMPARISON: There are no previous studies available for comparison. TECHNIQUE: 3 views of the right ankle. FINDINGS: BONE DENSITY: Normal. JOINTS: No acute abnormality. FRACTURE: No acute fracture. DISLOCATION: None. SOFT TISSUES: No radiopaque foreign body. XR/XR ankle RT min 3V IMPRESSION: No acute osseous or joint abnormality. Electronically authenticated by: TAMARA WILLIAMSON Date: 10/01/2024 21:15
--- NOTE | 2024-10-01 18:57 | XR_ITS ---
The [place] [id number] Patient Name: VIKTORIYA TAMAYO MRN: [id number] date: 1985 Sex: M Assigned Patient Location: ER Current Patient Location: ED.MAIN Accession/Order Number: [id number] Exam Date: 10/01/2024 19:10 Report Date: 10/01/2024 21:12 At the request of: CHELSY HOWE Procedure: XR knee RT 3V EXAMINATION: XR knee RT 3V, , 10/01/2024 4:10 PM PST INDICATION: pain, fall HISTORY: Ordering Provider Reason for Exam: pain, fall Technologist Note: Additional: COMPARISON: None. TECHNIQUE: Right knee x-ray: 3 view(s). FINDINGS: No acute fracture. Joint alignment is anatomic. Joint spaces are preserved. No significant joint effusion. Soft tissues are within normal limits. XR/XR knee RT 3V IMPRESSION: No acute fracture or traumatic malalignment. Electronically authenticated by: MAYLIN PACHECO Date: 10/01/2024 21:12
[2024-10-01 19:26] VITALS: BP 204/94
[2024-10-01] MEDS: IBUPROFEN 600 MG TABLET PO (19:47)
[2024-10-01] MEDS: ACETAMINOPHEN 500 MG TABLET 1000 MG PO (19:48)
[2024-10-01 20:26] VITALS: BP 183/82
[2024-10-01 21:43] VITALS: BP 177/83
== END 2024-10-01 21:46 | disposition home or self-care (01) ==
PROVIDERS: Emergency Provider Emergency Medicine; PCP Internal Medicine
DX: S70.01XA Contusion of right hip, initial encounter (principal); S89.91XA Unspecified injury of right lower leg, initial encounter; S93.401A Sprain of unspecified ligament of right ankle, initial encounter; W00.0XXA Fall on same level due to ice and snow, initial encounter; F17.200 Nicotine dependence, unspecified, uncomplicated
CPT/HCPCS: 73502; 73562; 73610; 99284

== ENCOUNTER 2024-11-06 08:11 | Outpatient (REF) | payer MEDICARE, MEDICAID, SELFPAY ==
[2024-11-06 09:04] LABS: Potassium 6.1 mmol/L (3.5-5.1)
== END 2024-11-06 08:12 | disposition home or self-care (01) ==
LOC: LAB 08:11
PROVIDERS: PCP Internal Medicine; Visit Provider Internal Medicine Nephrology
DX: E87.5 Hyperkalemia (principal)
CPT/HCPCS: 36415; 84132

== ENCOUNTER 2025-04-12 21:29 | Emergency (ER) | payer MEDICARE, MEDICAID, SELFPAY ==
--- OUTSIDE RECORDS SUMMARY | 2005-09-26 20:00 | XMS_ITS | Continuity of Care Document ---
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 Phone Unavailable Unavailable Unavailable Advance Directives Directive Yes / No Effective Date File Name No Information Encounters Encounter Description Practice Location Reason(s) For Visit Diagnoses Date Provider Providers Copied on Encounter [facility], [address] [place] [address], [id number], [place] tel:[phone] [facility] No Information [id number] No Information Family History Family Member Type Diagnosis Age At Onset No Information Payers Payer name Insurance type Covered constitution party ID Authoriza tion(s) No Information Social History Type Description Quantity Date Captured Comments Sex Male Smoking Status No Information Chief Complaint And Reason For Visit No Information Reason For Referral Reason For Referral No Information History Of Present Illness Encounter Date Complaint History Of Prese nt Illness No Information Functional Status Date Functional Assessmen t No Information Instructions Date Instruction Additional Infor mation No Information Assessments Type Assessment Date No Information Patient Care Teams Name Effective Dates (start - stop) Status Members No Information
--- OUTSIDE RECORDS SUMMARY | 2023-10-02 10:15 | XMS_ITS | Continuity of Care Document ---
Demographics Address [address] [place] [address] Home Phone Email Address none Preferred Language en Marital Status Never Scientologist Affiliation Unknown Race Unknown Additional Race(s) Other Race Ethnic Group Unknown Author Organization [facility] Address [address] [place] [address] Phone Care Team Providers Care Bindery Machine Feeder Offbearer Name Role Phone Judsonjulee KULWINDERPerla Healyha Unavailable Unavailable Allergies, Adverse Reactions, Alerts Substance Reaction Status Criticality No Known Allergies Active No Inform ation Medications Medication Instructions Dosage Effective Dates (start - stop) Status Comments Pain Relief (with salicylamide) 162 mg-110 mg-152 mg-32.4 mg tablet take 1 tablet by oral route every 4 hours as needed - Active atorvastatin 80 mg tablet take 1 tablet by oral route every day 80 MG - Active carvedilol 25 mg tablet take 1 tablet by oral route 2 times every day with food 25 MG - Active Epogen 2,000 unit/mL injection solution inject (100UNITS/KG) by subcutaneous route 3 times every week 100 UNITS/KG - Active famotidine 20 mg tablet take 1 tablet by oral route 2 times every day 20 MG - Active Ferrlecit 62.5 mg/5 mL intravenous solution infuse (125MG) by intravenous route over at dialysis 125 MG - Active furosemide 40 mg tablet take 1 tablet by oral route every day 40 MG - Active heparin (porcine) (bulk) 180 unit/mg (LONGTERM) powder - Active Humalog KwikPen (U-100) Insulin 100 unit/mL subcutaneous inject by subcutaneous route per prescriber's instructions. Insulin dosing requires individualization. 0.00 - Active hydralazine 50 mg tablet take 1 tablet by oral route 2 times every day with food 50 MG - Active isosorbide mononitrate ER 60 mg tablet,extended release 24 hr take 1 tablet by oral route every day in the morning 60 MG - Active Lexapro 10 mg tablet take 1 tablet by oral route every day 10 MG - Active Claritin Liqui-Gel 10 mg capsule - Active Nitrostat 0.[address] 1 tablet by sublingual route at 1st sign of attack; may repeat every 5 minutes up to 3 tabs; if norelief seek medical help 0.4 MG - Active omeprazole 40 mg capsule,delayed release take 1 capsule by oral route every day before a meal 40 MG - Active Phoslyra 667 mg (169 mg calcium)/5 mL oral solution take 10 milliliter by oral route 3 times every day with meals - Active Plavix 75 mg tablet take 1 tablet by oral route every day 75 MG - Active Zemplar 5 mcg/mL intravenous solution inject (0.04MCG/KG) by intravenous route every 2 days during dialysis 0.04 MCG/KG - Active calcium acetate 668 mg (169 mg calcium) tablet - Active Procedures Procedure Date Intraoral-periapical 1st Film 4 Oral Hygiene Instruction Intraoral-periapical 1st Film 4 Tjnmzvaqt-huarmqepkf-zsgh Additional Sep Ucarkstmw-bioetrstkd-rype Additional Sep Zpdzynzzd-hxwtoucmex-cllv Additional Sep Swtrraiwz-crohcoesrn-belz Additional Sep Qyrqwboel-hgurqtmqnk-aeph Additional Sep Limited Oral Eval Extract; Erupted Th/exposted Rt 024 Extract; Erupted Th/exposted Rt 024 Intraoral-periapical 1st Film 3 Oral Hygiene Instruction Limited Oral Eval Extract; Erupted Th/exposted Rt 023 OFFICE/OUTPATIENT VISIT, [facility] SPECIMEN HANDLING HIV-1 Advance Directives Directive Yes / No Effective Date File Name No Information Encounters Encounter Description Practice Location Reason(s) For Visit Diagnoses Date Provider Providers Copied on Encounter [facility], [address] [place] [address], [place], [place], [id number], [place] tel:[phone] [facility] post op ER (chief complaint) Encounter for screening for dental disordersBody mass index [BMI] 20.0-20.9, adult Mihir Calderon. . tel:[phone] [facility], [address] [place] [address], [id number], [place] tel:[phone] Dental Clinic ER (chief complaint) Body mass index [BMI] 20.0-20.9, adultEncounter for screening for dental disorders Mihir MIRAMONTESS Yumiko. . tel:[phone] [facility], [address] [place] [address], [id number], [place] tel:[phone] Dental Clinic dental ER (chief complaint) Encounter for screening for dental disorders Erik Adame. [address] [place] [address], [id number], . tel: [phone] OFFICE/OUTPAT IENT VISIT, [facility], [address] [place] [address], [id number], tel:[phone] [facility] STI male (chief complaint) Contact with or exposure to venereal diseases Zofia Loyd. [address] [place] [address], [id number] , . [phone] Family History Family Member Type Diagnosis Age At Onset No Information Payers Payer name Insurance type Covered democrat ID Marisela lomax(s) D [employer] 17 [id number] D [employer] [facility] [id number] D Medicaid [facility] [id number] Social History Type Description Quantity Date Captured Comments Alcohol Use Details No Caffeine Use Details Unknown Tobacco Use Status Smoking Status No Information Sex Male Sexual Orientation Straight or heterosexual Gender Identity Male Vital Signs Date / Time: Height Weight BMI Pulse Rate Blood Pressure Temperature Respiratory Rate Body Surface Area Head Circumference Head Circ. Percentile Wt./Eric. Percentile BMI percentile Pulse Ox Inhaled Ox 2:31 PM 73.00 in 71.214 kg (157.00 lbs) 20.7 1 kg/m eter (2) Chief Complaint And Reason For Visit From encounter dated '10/02/2023 14:15'. post op ER (chief complaint). Description: Dental limited Reason For Referral Reason For Referral No Information Plan Of Treatment Date Type Action Status Goal PRAPARE ASSESSMENT. Due on due Goal Tdap. Due on due Goal Hep A. Due on du e Goal Unhealthy drug use screening . Due on due Goal Tdap Vaccine. Due on 2023 due Goal RLP. Due on due Goal Depression screening. Due on due Goal Hepatitis C screening. Due o n due Goal Influenza vaccine. Due on due Goal Dietary management education , guidance, and counseling completed Goal Unhealthy drug use screening . Due on due Goal Depression screening. Due on due Goal Tdap. Due on due Goal Hep A. Due on du e Goal PRAPARE ASSESSMENT. Due on due Goal RLP. Due on due Goal Tdap Vaccine. Due on 2023 due Goal Influenza vaccine. Due on due Goal Hepatitis C screening. Due o n due Goal Dietary management education , guidance, and counseling completed Goal PRAPARE ASSESSMENT. Due on S due Goal Tdap. Due on due Goal Depression screening. Due on due Goal Tdap Vaccine. Due on 2022 due Goal Influenza vaccine. Due on Se due Goal RLP. Due on due History Of Present Illness Encounter Date Complaint History Of Prese nt Illness post op ER Dental limited ER dental ER emergency Functional Status Date Functional Assessmen t No Information Instructions Date Instruction Additional Infor mation Prescribed activity/ exercise education Related to Body mass index [BMI] 20.0-20.9, adult Dietary management e ducation, guidance, and counseling Related to Body mass index [BMI] 20.0-20.9, adult Dietary management e ducation, guidance, and counseling Related to Body mass index [BMI] 20.0-20.9, adult Assessments Type Assessment Date assessment Encounter for screening for dent al disorders assessment Body mass index [BMI] 20.0-20.9, adult Patient Care Teams Name Effective Dates (start - stop) Status Members No Information
[2025-04-12] VITALS (9 sets, daily range): BP systolic 164–240; BP diastolic 69–110; PULSE 56–855; O2SAT 86–99; BMI 23.7
[2025-04-12] MEDS: DEXTROSE 50 %-WATER 25 GM/50 ML SYRINGE IV ×3 (21:34→23:45)
--- OUTSIDE RECORDS SUMMARY | 2025-04-12 21:49 | XMS_ITS | Encounter Summary ---
Author Organization [facility] Address [address] [place] [address] Phone Care Team Providers Care Doctor Of Osteopathy Name Role Phone Rolando Kothari DO Primary Care Provider [phone] Rolando Kothari DO Primary Care Provider [phone] Elder Gomez DO Unavailable [phone] Encounter Details Date Type Department Care Team (Late st Contact Info) Description 12/25/2021 Orders Only [facility] [address] [place] [address] [place] [address] Conversion, Onbase Social History Tobacco Use Types Packs/Day Years Used Date Smoking Tobacco: Never Assessed Sex and Gender Information Value Date Recorded Sex Assigned at Not on file Legal Sex Male 5:22 AM EST Gender Identity Not on file Sexual Orientation Not on file documented as of this encounter Plan of Treatment Upcoming Encounters Date Type Department Care Team (Late st Contact Info) Description 04/15/2025 7:45 AM EDT Appointment [place] [address] [facility] [address] [place] [address] 05/27/2025 10:40 AM EDT Office Visit [address] [place] [address] Elder Gomez DO [address] [facility] [address] [place] [address] Scheduled Orders Name Type Priority Associated Diagnoses Orde r Schedule OUTSIDE LAB SCAN Lab Ordered: 12/25/2021 OUTSIDE LAB SCAN Lab Ordered: 12/25/2021 OUTSIDE LAB SCAN Lab Ordered: 12/25/2021 documented as of this encounter Visit Diagnoses Not on filedocumented in this encounter Care Teams Doctor Of Osteopathy Relationship Specialty Start Date End Date Rolando Kothari DO PCP - General 08/19/18 12/02/23 Rolando Kothari DO PCP - General Internal Medicine 12/03/23 Elder Gomez DO [address] [place] [address] Consulting Physician Cardiology 12/03/23 documented as of this encounter
--- OUTSIDE RECORDS SUMMARY | 2025-04-12 21:49 | XMS_ITS | Encounter Summary ---
Author Organization [facility] Address [address] [place] [address] Phone Care Team Providers Care Application Integration Architect Name Role Phone Taye Rolando Rodríguez GORDON Primary Care Provider Elder Gomez DO Unavailable [phone] Encounter Details Date Type Department Care Team (Late st Contact Info) Description 11/01/2024 Scanned Document [facility] [address] [place] [id number] Scanning, Generic Provider Social History Tobacco Use Types Packs/Day Years Used Date Smoking Tobacco: Every Day Cigarettes Smokeless Tobacco: Never Alcohol Use Standard Drinks/Week Comments Never 0 (1 standard drink = 0.6 oz pur e alcohol) Sex and Gender Information Value Date Recorded Sex Assigned at Not on file Legal Sex Male 5:22 AM EST Gender Identity Not on file Sexual Orientation Not on file documented as of this encounter Plan of Treatment Upcoming Encounters Date Type Department Care Team (Late st Contact Info) Description 04/15/2025 7:45 AM EDT Appointment [place] [address] [facility] [address] [place] [address] 05/27/2025 10:40 AM EDT Office Visit [address] [place] [address] Elder Gomez DO [address] [facility] [address] [place] [address] documented as of this encounter Procedures Procedure Name Priority Date/Time Associated Diagnosis Comments OUTSIDE IMAGING SCAN 11/01/2024 documented in this encounter Results * OUTSIDE IMAGING SCAN (11/01/2024) Anatomical Region Laterality Modality Other Narrative 11/01/2024 Ordered by an unspecified provider. us Generic Provider Scanning OUTSIDE SCAN Final Result documented in this encounter Visit Diagnoses Not on filedocumented in this encounter Care Teams Application Integration Architect Relationship Specialty Start Date End Date Rolando Kothari DO PCP - General Internal Medicine 12/03/23 Elder Gomez DO [address] [facility] [address], [place] [address] Consulting Physician Cardiology 12/03/23 documented as of this encounter
--- OUTSIDE RECORDS SUMMARY | 2025-04-12 21:49 | XMS_ITS | Encounter Summary ---
Author Organization [facility] Address [address] [place] [address] Phone Care Team Providers Care Administration Professional Name Role Phone Rolando Kothari DO Primary Care Provider [phone] Rolando Kothari DO Primary Care Provider [phone] Elder Gomez DO Unavailable [phone] Encounter Details Date Type Department Care Team (Late st Contact Info) Description 11/26/2023 Scanned Document [facility] [address] [place] [address] Scanning, Generic Provider Social History Tobacco Use Types Packs/Day Years Used Date Smoking Tobacco: Every Day Cigarettes Alcohol Use Standard Drinks/Week Comments Never 0 [...] Info) Description 04/15/2025 7:45 AM EDT Appointment [place] [address] [place] [address] 05/27/2025 10:40 AM EDT Office Visit [address] [place] [address] Elder Gomez DO [address] [place] [address] [address], [address] [place], [place] [phone] documented as of this encounter Visit Diagnoses Not on filedocumented in this encounter Care Teams Administration Professional Relationship Specialty Start Date End Date Rolando Kothari DO PCP - General 08/19/18 12/02/23 Rolando Kothari DO PCP - General Internal Medicine 12/03/23 Elder Gomez DO [address] [facility] 2, [place] [phone] Consulting Physician Cardiology 12/03/23 documented as of this encounter
--- OUTSIDE RECORDS SUMMARY | 2025-04-12 21:49 | XMS_ITS | Encounter Summary ---
Author Organization [facility] Address [address] [place] [address] Phone Care Team Providers Care Slash Trimmer Name Role Phone Rolando Kothari DO Primary Care Provider [phone] Rolando Kothari DO Primary Care Provider [phone] Elder Gomez DO Unavailable [phone] Encounter Details Date Type Department Care Team (Late st Contact Info) Description 10/02/2023 Scanned Document [facility] [address] [place] [address] Scanning, Generic Provider Social History [...] Info) Description 04/15/2025 7:45 AM EDT Appointment [place] [address] [place] [phone] 05/27/2025 10:40 AM EDT Office Visit [address] [place] [address] Elder Gomez DO [address] [place] [address] [address], [address] [place], [place] [phone] documented as of this encounter Visit Diagnoses Not on filedocumented in this encounter Care Teams Slash Trimmer Relationship Specialty Start Date End Date Rolando Kothari DO PCP - General 08/19/18 12/02/23 Rolando Kothari DO PCP - General Internal Medicine 12/03/23 Elder Gomez DO [address] [facility] 2, [place] [phone] Consulting Physician Cardiology 12/03/23 documented as of this encounter
--- OUTSIDE RECORDS SUMMARY | 2025-04-12 21:49 | XMS_ITS | Patient Health Record ---
Demographics Address [address] [place] [address] Email Address Preferred Language en Marital Status Sikh Affiliation Unknown Race White Ethnic Group Not or Lati no Author Organization [facility] [place] Address [address] [place] [address] Care Team Providers Care Property Consultant Name Role Phone Rolando Kothari DO Primary Care Provider Unavaila ble Allergies No Known Allergies Reason For Referral No Information Medications Medication SIG (Take, Route, Frequency, Duration) Notes Start Date End Date Status Aspirin 81 MG 1 tablet Orally Once a day Active hydrALAZINE HCl 50 MG 1 tablet with food Orally Three times a day Active HumaLOG 100 UNIT/ML as directed Subcutaneous Active Heparin Sodium (Porcine) 1000 UNIT/ML as directed Injection Active Furosemide 40 MG 1 tablet Orally Once a day Active Ferrlecit 12.5 MG/ML as directed Intravenous Active Zemplar 5 MCG/ML as directed Intravenous 3miroc/3 times a week Active Famotidine 20 MG 1 tablet at bedtime as needed Orally Once a day Active Plavix 75 MG 1 tablet Orally Once a day Active Epogen 2000 UNIT/ML as directed Injection Active Omeprazole 40 MG 1 capsule 30 minutes before morning meal Orally Once a day Active Carvedilol 25 MG 1 tablet with food Orally Twice a day Active Nitrostat 0.4 MG as directed Sublingual Active Calcium Acetate 667 MG 2 tablets with me als Orally Three times a day Active Loratadine 10 MG 1 tablet Orally Once a day Active Atorvastatin Calcium 80 MG 1 tablet Orally Once a day Active Lexapro 10 MG 1 tablet Orally Once a day Active Isosorbide Mononitrate 20 MG 1 tablet Orally Twice a day Pt taking 60mg Active Social History Tobacco Use: Social History Observation Description Date Details (start date - stop date) Current Smoker NA - NA Tobacco Use/Smoking Question Answer Notes Patient is a current smoker Problems Problem Type SNOMED Code ICD Code Onset Dates Problem Status W/U Status Risk Notes Problem 22530569 Type 2 diabetes mellitus with diabetic neuropathy, unspecified (E11.40) Active confirmed Problem 554034148 snf (current) use of insulin (Z79.4) Active confirmed Plan Of Treatment No Information Insurance Providers Payer Name Payer Address Payer Phone Subscriber Number Group Number Insured Name Patient Relationship to Insured Coverage Start Date Coverage End Date [place] [address] [place] [address] [id number] Yoel Perez Self - patient is the insured [employer] [place] [employer] [address] [facility] [address] [place] [address] [id number] Yoel Perez Self - patient is the insured Medical (General) History Medical History History ICD Code Cancer 199.1 Diabetes mellitus 250.00 Heart problem 429.9 Hypertension 401.9 Slow Healing Problems Anemia, unspecified D64.9 Kidney disease 593.9 Surgical History Surgery Date(Month/Year) knee arthroscopy [place] 2022 Heart Cath Hospitalization History Reason Date(Month/Year) See above
--- OUTSIDE RECORDS SUMMARY | 2025-04-12 21:49 | XMS_ITS | Encounter Summary ---
Author Organization [facility] Address [address] [place] [address] Phone Care Team Providers Care Metal Buggy Operator Name Role Phone Rolando Kothari DO Primary Care Provider [phone] Rolando Kothari DO Primary Care Provider [phone] Elder Gomez DO Unavailable Encounter Details Date Type Department Care Team (Late st Contact Info) Description 11/13/2021 Orders Only [facility] [address] [place] [address] Conversion, Onbase Social History Tobacco Use Types [...] Info) Description 04/15/2025 7:45 AM EDT Appointment [address] [place] [address] 05/27/2025 10:40 AM EDT Office Visit [address] [place] [address] Elder Gomez DO [address] [facility] [address] [place] [address] Scheduled Orders Name Type Priority Associated Diagnoses Orde r Schedule OUTSIDE LAB SCAN Lab Ordered: 11/13/2021 documented as of this encounter Visit Diagnoses Not on filedocumented in this encounter Care Teams Metal Buggy Operator Relationship Specialty Start Date End Date Rolando Kothari DO PCP - General 08/19/18 12/02/23 Rolando Kothari DO PCP - General Internal Medicine 12/03/23 Elder Gomez DO [address] [place] [address] Consulting Physician Cardiology 12/03/23 documented as of this encounter
--- OUTSIDE RECORDS SUMMARY | 2025-04-12 21:49 | XMS_ITS | Encounter Summary ---
Author Organization [facility] Address [address] [place] [address] Phone Care Team Providers Care Program Mgr Name Role Phone Rolando Kothari DO Primary Care Provider [phone] Elder Gomez DO Unavailable [phone] Encounter Details Date Type Department Care Team (Late st Contact Info) Description 11/02/2024 Scanned Document [facility] [address] [place] [phone] Scanning, Generic Provider Social History Tobacco Use [...] Info) Description 04/15/2025 7:45 AM EDT Appointment [address] [place] [address] 05/27/2025 10:40 AM EDT Office Visit [address] [place] [address] Elder Gomez DO [address] [place] [address] [address] [place] [address] documented as of this encounter Visit Diagnoses Not on filedocumented in this encounter Care Teams Program Mgr Relationship Specialty Start Date End Date Rolando Kothari DO PCP - General Internal Medicine 12/03/23 Elder Gomez DO [address] [facility] [address], [place] [phone] Consulting Physician Cardiology 12/03/23 documented as of this encounter
--- OUTSIDE RECORDS SUMMARY | 2025-04-12 21:49 | XMS_ITS | Clinical Summary ---
Author Organization [facility] Address [address] [place], [place] [id number] Care Team Providers Care School Psychologist Assistant Name Role Phone Rolando Kothari DO Primary Care Provider [phone] Allergies No known active allergies Medications dorzolamide HCl/PF (DORZOLAMIDE, PF,) 2 % drop Use 1 Drop in eyes three times daily. 10 mL 10/01/19 22 Active Additional Information Patient not taking.Reason: Discontinued by Another Health Care Provider, Reported on 10/02/2021 brimonidine (ALPHAGAN) 0.2 % ophthalmic solution Use 1 Drop in the left eye three times daily for 7 days. 10 mL 10/01/19 22 Active timolol maleate (TIMOPTIC) 0.5 % ophthalmic solution Use 1 Drop in the left eye twice daily. 10 mL 10/01/19 22 Active amLODIPine (NORVASC) 5 mg tablet 08/21/19 22 Active atorvastatin (LIPITOR) 40 mg tablet 08/08/20 21 Active escitalopram oxalate (LEXAPRO) 10 mg tablet 09/29/19 22 Active insulin glargine (LANTUS SOLOSTAR, BASAGLAR KWIKPEN) 100 unit/mL (3 mL) Insulin Glargine (Basaglar Kwikpen U-100 Insulin) 100 unit/mL (3 mL) insulin pen Active 15 UNIT SUBCUT Daily September 11, 2021 10:23pm 09/11/19 22 Active losartan (COZAAR) 25 mg tablet 08/08/20 21 Active metFORMIN ER (GLUCOPHAGE XR) 500 mg 24 hr tablet Metformin Active 500 MG PO Twice daily September 11, 2021 10:23pm 09/11/19 22 Active ondansetron orally disintegrating (ZOFRAN ODT) 4 mg disintegrating tablet Take 4 mg by mouth every 6 hours as needed. 09/12/19 22 Active Active Problems No known active problems Social History Tobacco Use Types Packs/Day Years Used Date Smoking Tobacco: Every Day Smokeless Tobacco: Never Alcohol Use Standard Drinks/Week Comments Not Currently 0 (1 standard drink = 0.6 oz pur e alcohol) Area Deprivation Index Answer Date Souleymane rded National Score (1-100), lower number is lower ri sk 96 09/05/2022 State Score (1-10), lower number is lower risk N ot on file 09/05/2022 Data from: https://www.neighborhoodatlas.medicine.[facility]/. Last address used for calculation [address] 09/05/2022 Sex and Gender Information Value Date Recorded Sex Assigned at Not on file Legal Sex Male 9:56 AM EST Gender Identity Not on file Sexual Orientation Not on file Last Filed Vital Signs Vital Sign Reading Time Taken Comments Blood Pressure 180/87 10/01/2021 5:34 AM EST Pulse 66 10/01/2021 5:34 AM EST Temperature 37.1 C (98.8 F) 10/01/2021 5:34 AM EST Respiratory Rate 14 10/01/2021 5:34 AM EST Oxygen Saturation 99% 10/01/2021 5:34 AM EST Inhaled Oxygen Concentration - - Weight - - Height - - Body Mass Index - - Plan of Treatment Health Maintenance Due Date Last Done Comments Anxiety Screening 2003 Depression Screening 2003 HIV Screening 2003 Hepatitis C Screening 2003 DTaP,Tdap,Td Vaccine (1 - Tdap) 2004 Hepatitis B Vaccine (1 of 3 - 19+ 3-dose series) 03/03 HPV Vaccine (1 - 3-dose SCDM series) 2012 Lipid Screening 2020 Influenza Vaccine (#1) 2025 Insurance MEDICAID [place] Care Teams School Psychologist Assistant Relationship Specialty Start Date End Date Rolando Kothari DO PCP - General Internal Medicine 10/01/21
--- OUTSIDE RECORDS SUMMARY | 2025-04-12 21:49 | XMS_ITS | Encounter Summary ---
Author Organization [facility] Address [place] [address] Care Team Providers Care Instrument Maker Apprentice Name Role Phone Rolando Kothari DO Primary Care Provider [phone] Source Comments In the event this information is protected by the Federal Confidentiality of Alcohol and Drug AbusePatient Records regulations: The Federal rules restrict any use of the information to criminally investigate or prosecute any alcohol or drug abuse patient.[facility] Encounter Details Date Type Department Care Team (Late st Contact Info) Description 10/01/2021 Ophth Exam [facility] Emergency Department [address] [id number] Anum Tristan MD [address] [place] [address] Social History Tobacco Use Types Packs/Day Years Used Date Smoking Tobacco: Never Assessed Sex and Gender Information Value Date Recorded Sex Assigned at Not on file Legal Sex Male 9:56 AM EST Gender Identity Not on file Sexual Orientation Not on file COVID-19 Exposure Response Date Recorded In the last month, have you been in contact with someone who was confirmed or suspected to have Coronavirus / COVID-19? No / Unsure 10/01/2021 5:30 AM EST documented as of this encounter Plan of Treatment Not on file documented as of this encounter Visit Diagnoses Not on filedocumented in this encounter Care Teams Instrument Maker Apprentice Relationship Specialty Start Date End Date Rolando Kothari DO PCP - General Internal Medicine 10/01/21 documented as of this encounter
--- OUTSIDE RECORDS SUMMARY | 2025-04-12 21:49 | XMS_ITS | Encounter Summary ---
Author Organization [facility] Address [address] [facility] [place] [address] Care Team Providers Care Tariff Expert Name Role Phone Rolando Kothari DO Primary Care Provider [phone] Rolando Kothari DO Primary Care Provider [phone] Encounter Details Date Type Department Care Team (Late st Contact Info) Description 11/19/2023 Orders Only [facility] [address] [place] [id number] Nelida Carrington NP Social History Tobacco Use Types Packs/Day Years Used Date Smoking Tobacco: Every Day Cigarettes 1 20 Smokeless Tobacco: Never Alcohol Use Standard Drinks/Week Comments Defer 0 (1 standard drink = 0.6 oz pur e alcohol) Sex and Gender Information Value Date Recorded Sex Assigned at Not on file Legal Sex Male 11:45 PM EDT Gender Identity Not on file Sexual Orientation Not on file documented as of this encounter Plan of Treatment Not on file documented as of this encounter Procedures Procedure Name Priority Date/Time Associated Diagnosis Comments MRI SHOULDER LT WO W CON Routine 11/19/2023 1:32 PM EDT documented in this encounter Results * MRI SHOULDER LT WO W CON (11/19/2023 1:32 PM EDT) Anatomical Region Laterality Modality Radiographic Tiffanie ging us Nelida Carrington NP IMG XR PROCEDURES Final Result documented in this encounter Visit Diagnoses Not on filedocumented in this encounter Care Teams Tariff Expert Relationship Specialty Start Date End Date Rolando Kothari DO PCP - General Internal Medicine 07/18/23 12/09/24 Rolando Kothari DO [address] [place] [address] PCP - General Internal Medicine 12/10/24 documented as of this encounter
--- OUTSIDE RECORDS SUMMARY | 2025-04-12 21:49 | XMS_ITS | Encounter Summary ---
Author Organization [facility] Address [address] [place] [address] Phone Care Team Providers Care Curing Pickling Packer Name Role Phone Rolando Kothari DO Primary Care Provider [phone] Rolando Kothari DO Primary Care Provider [phone] Elder Gomez DO Unavailable [phone] Encounter Details Date Type Department Care Team (Late st Contact Info) Description 10/02/2022 Orders Only [facility] [address] [place] [address] Conversion, Onbase Social History Tobacco Use Types [...] Info) Description 04/15/2025 7:45 AM EDT Appointment [address] [facility] [address] [place] [address] 05/27/2025 10:40 AM EDT Office Visit [address] [place] [address] Elder Gomez DO [address] [facility] [address] [place] [address] Scheduled Orders Name Type Priority Associated Diagnoses Orde r Schedule OUTSIDE LAB SCAN Lab Ordered: 10/02/2022 documented as of this encounter Visit Diagnoses Not on filedocumented in this encounter Care Teams Curing Pickling Packer Relationship Specialty Start Date End Date Rolando Kothari DO PCP - General 08/19/18 12/02/23 Rolando Kothari DO PCP - General Internal Medicine 12/03/23 Elder Gomez DO [address] [place] [address] Consulting Physician Cardiology 12/03/23 documented as of this encounter
--- OUTSIDE RECORDS SUMMARY | 2025-04-12 21:49 | XMS_ITS | Encounter Summary ---
Author Organization [facility] Address [address] [place] [address] Phone Care Team Providers Care Bicycle Ii Assembler Name Role Phone Rolando Kothari DO Primary Care Provider [phone] Elder Gomez DO Unavailable [phone] Encounter Details Date Type Department Care Team (Late Contact Info) Description 12/16/2023 Lab Requisition [facility] [address] [place] [address] Jagdish Sanford MD [address] [facility] [address] [place], [place] [id number] Unspecified purulent endophthalmitis, left eye Social History Tobacco Use Types Packs/Day Years [...] Exposure Response Date Recorded In the last 10 days, have yo u been in contact with someone who was confirmed or suspected to have Coronavirus/COVID-19? No / Unsure 12/03/2023 2:43 PM EDT documented as of this encounter Plan of Treatment Upcoming Encounters Date Type Department Care Team (Late Contact Info) Description 04/15/2025 7:45 AM EDT [address]ointment [address] [place] [address] 05/27/2025 10:40 AM EDT Office Visit [address] [address] Elder Gomez DO [address] [facility] [place] [address] documented as of this encounter Procedures Procedure Name Priority Date/Time Associated Diagnosis Comments STERILE FLUID CULTURE/SMEAR STAT 12/16/2023 6:00 PM EDT Unspecified purulent endophthalmitis, left eye documented in this encounter Results * Sterile Fluid Culture/Smear (12/16/2023 6:00 PM EDT) Sterile Fluid Culture/Smea r No growth aerobically and anaerobically 12/21/2023 1:[address] [facility] Gram Stain No polymorphonuclear leukocytes seen 12/21/2023 1:[address] [facility] Gram Stain No organisms seen 024 1:[address] [facility] Fluid Vitreous humor specimen / Unknown 12/16/2023 6:00 PM EDT 12/16/2023 9:17 PM EDT [facility] MICROBIOLOGY - GENERAL ORDER RAE Final Result Performing Organization Address City/State/[facility] Co de Phone Number [facility] [id number] [place], [place] [id number] documented in this encounter Visit Diagnoses Diagnosis Unspecified purulent endophthalmitis, left eye documented in this encounter Care Teams Bicycle Ii Assembler Relationship Specialty Start Date End Date Rolando Kothari DO PCP - General Internal Medicine 12/03/23 Elder Gomez DO [address] [facility] [place] [address] Consulting Physician Cardiology 12/03/23 documented as of this encounter
--- OUTSIDE RECORDS SUMMARY | 2025-04-12 21:49 | XMS_ITS | Encounter Summary ---
Author Organization [facility] Address [address] [place] [address] Phone Care Team Providers Care Leather Grader Name Role Phone Rolando Kothari DO Primary Care Provider [phone] Rolando Kothari DO Primary Care Provider [phone] Elder Gomez DO Unavailable [phone] Encounter Details Date Type Department Care Team (Late st Contact Info) Description 10/10/2022 Orders Only [facility] [address] [place] [address] Conversion, Onbase Social History Tobacco Use Types [...] Info) Description 04/15/2025 7:45 AM EDT Appointment [address] [facility] [address] [place] [address] 05/27/2025 10:40 AM EDT Office Visit [address] [place] [address] Elder Gomez DO [address] [facility] [address] [place] [address] Scheduled Orders Name Type Priority Associated Diagnoses Orde r Schedule OUTSIDE LAB SCAN Lab Ordered: 10/10/2022 documented as of this encounter Visit Diagnoses Not on filedocumented in this encounter Care Teams Leather Grader Relationship Specialty Start Date End Date Rolando Kothari DO PCP - General 08/19/18 12/02/23 Rolando Kothari DO PCP - General Internal Medicine 12/03/23 Elder Gomez DO [address] [place] [address] Consulting Physician Cardiology 12/03/23 documented as of this encounter
--- OUTSIDE RECORDS SUMMARY | 2025-04-12 21:49 | XMS_ITS | Clinical Summary ---
Author Organization [facility] Address [address] [place] [address] Care Team Providers Care Penology Teacher Name Role Phone Rolando Kothari DO Primary Care Provider Allergies Active Allergy Reactions Criticality Noted Date Comments Ticagrelor Shortness of breath High 06/11/2024 Medications [facility] Aspirin Adult Low Dose 81 MG chewable tablet Chew 81 mg in the morning. 04/22/20 23 Active atorvastatin (Lipitor) 80 MG tablet Take 80 mg by mouth at bedtime. 07/02/20 23 Active ergocalciferol (Vitamin D2) 1.25 MG (64889 UT) capsule Take 1 capsule by mouth 1 (one) time per week. 07/02/20 23 Active escitalopram (Lexapro) 10 MG tablet Take 10 mg by mouth in the morning. 06/20/20 23 Active famotidine (Pepcid) 20 MG tablet Take 20 mg by mouth in the morning and 20 mg before bedtime. 05/26/20 23 Active furosemide (Lasix) 40 MG tablet Take 40 mg by mouth in the morning. 06/20/20 23 Active hyoscyamine (Anaspaz,Levsin) 0.125 MG tablet TAKE 1 TABLET BY MOUTH EVERY 6 HOURS NEEDED FOR ABDOMINAL PAIN 07/09/20 23 Active loratadine (Claritin) 10 MG tablet Take 10 mg by mouth every other day. 06/21/20 23 Active omeprazole (PriLOSEC) [address] capsule TAKE 1 CAP BY MOUTH EVERY DAY IN THE MORNING ON EMPTY STOMACH FOLLOWED BY BREAKFAST 30 MINS AFTER 06/20/20 23 Active ondansetron ODT (Zofran-ODT) 4 MG disintegrating tablet DISSOLVE 1 TABLET ON THE TONGUE EVERY 6 HOURS NEEDED FOR NAUSEA/ VOMITING 07/09/20 Active GaviLyte-G 236 g solution TAKE 240 ML EVERY 10 MINUTES UNTIL FECAL EFFLUENT IS CLEAR 07/09/20 Active sertraline (Zoloft) 100 MG tablet 07/16/20 Active calcium acetate (Phoslo) 667 MG capsule TAKE 2 CAPSULES BY MOUTH 3 TIMES DAILY WITH EACH MEAL 03/27/20 Active carvedilol (Coreg) 25 MG tablet Take 25 mg by mouth in the morning and 25 mg before bedtime. 07/18/20 Active clopidogrel (Plavix) 75 MG tablet Take 75 mg by mouth in the morning. 07/24/20 Active isosorbide mononitrate ER (Imdur) 60 MG 24 hr tablet Take 60 mg by mouth in the morning and 60 mg before bedtime. 08/09/20 Active ofloxacin (Ocuflox) 0.3 % ophthalmic solution INSTILL 1 DROP INTO RIGHT EYE 4 TIMES A DAY DIRECTED 07/23/20 Active amLODIPine (Norvasc) 2.5 MG tablet Take 2.5 mg by mouth in the morning. 08/18/20 Active hydrALAZINE (Apresoline) 50 MG tablet Take 50 mg by mouth in the morning and 50 mg at noon and 50 mg in the evening. 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 10 mL 1 09/05/19 24 Active Blood Glucose Monitoring Suppl (Accu-Chek Guide Me) w/Device kit USE DIRECTED 08/27/19 24 Active Continuous Blood Gluc Sensor (Dexcom G6 Sensor) misc CHANGE SENSOR EVERY 10 DAYS*E10.65* 08/23/19 24 Active Accu-Chek Softclix Lancets lancets USE TO TEST BLOOD SUGAR TWICE DAILY 09/05/19 24 Active Accu-Chek Guide test strip USE TO TEST FOUR TIMES A DAY DIRECTED 08/27/19 24 Active Continuous Blood Gluc Transmit (Dexcom G6 transmitter) misc CHANGE EVERY 90 DAYS DX E10.65 09/07/19 24 Active diclofenac sodium (Voltaren) 1 % gelIndications:Left shoulder pain, unspecified chronicity,Impingement of left shoulder Apply 2 g topically in the morning and 2 g in the evening and 2 g before bedtime. 50 g 2 09/09/19 24 Active Active Problems No known active problems Immunizations Immunization Administration Dates Next Due MMR 10/05/1997 Family History Medical History Relation Name Comments Heart disease Father Hypertension Father Diabetes Mother Hypertension Mother Liver disease Mother Pancreatic cancer Mother Relation Name Status Comments Father Alive Mother Alive Social History Tobacco Use Types Packs/Day Years Used Date Smoking Tobacco: Every Day Cigarettes 1 20 Smokeless Tobacco: Never Tobacco Cessation:Ready to Q uit: Not Asked; Counseling Given: Yes Alcohol Use Standard Drinks/Week Comments Defer 0 (1 standard drink = 0.6 oz pur e alcohol) Sex and Gender Information Value Date Recorded Sex Assigned at Not on file Legal Sex Male 11:45 PM EDT Gender Identity Not on file Sexual Orientation Not on file Last Filed Vital Signs Vital Sign Reading Time Taken Comments Blood Pressure 129/80 06/04/2024 9:14 AM EDT Pulse 84 06/04/2024 9:14 AM EDT Temperature - - Respiratory Rate 18 12/10/2024 10:42 AM EDT Oxygen Saturation 97% 06/11/2023 10:27 AM EDT Inhaled Oxygen Concentration - - Weight 70.8 kg (156 lb) 12/10/2024 10:42 AM EDT Height 182.9 cm (6') 12/10/2024 10:42 AM EDT Body Mass Index 21.16 12/10/2024 10:42 AM EDT Plan of Treatment Not on file Insurance MEDICAID [place] [employer] Care Teams Penology Teacher Relationship Specialty Start Date End Date Rolando Kothari DO [address] [place] [address] PCP - General Internal Medicine 12/10/24
--- OUTSIDE RECORDS SUMMARY | 2025-04-12 21:49 | XMS_ITS | Encounter Summary ---
Author Organization [facility] Address [address] [place] [address] Phone Care Team Providers Care Cuff Setter Overlock Name Role Phone Taye Rolando Rodríguez GORDON Primary Care Provider [phone] Elder Gomez DO Unavailable [phone] Encounter Details Date Type Department Care Team (Late st Contact Info) Description 03/10/2024 Scanned Document [facility] [address] [place] [id number] Scanning, Generic Provider Social History Tobacco Use [...] Info) Description 04/15/2025 7:45 AM EDT Appointment [address] [place] [address] 05/27/2025 10:40 AM EDT Office Visit [address] [place] [address] Elder Gomez DO [address] [facility] [address] [place] [address] documented as of this encounter Procedures Procedure Name Priority Date/Time Associated Diagnosis Comments ECHOCARDIOGRAM 03/10/2024 documented in this encounter Results * Echocardiogram (03/10/2024) Narrative 03/10/2024 Ordered by an unspecified provider. us Generic Provider Scanning CV ECHO PROCEDURES Fin al Result documented in this encounter Visit Diagnoses Not on filedocumented in this encounter Care Teams Cuff Setter Overlock Relationship Specialty Start Date End Date Rolando Kothari DO PCP - General Internal Medicine 12/03/23 Elder Gomez DO 703 [facility] 2, [facility] [address] [id number] Consulting Physician Cardiology 12/03/23 documented as of this encounter
--- OUTSIDE RECORDS SUMMARY | 2025-04-12 21:49 | XMS_ITS | Encounter Summary ---
Author Organization [facility] Address [address] [place] [address] Phone Care Team Providers Care Mechanic Foreman Name Role Phone Rolando Kothari DO Primary Care Provider [phone] Rolando Kothari DO Primary Care Provider [phone] Elder Gomez DO Unavailable [phone] Encounter Details Date Type Department Care Team (Late st Contact Info) Description 11/20/2021 Orders Only [facility] [address] [place] [address] Conversion, Onbase Social History Tobacco Use Types [...] Info) Description 04/15/2025 7:45 AM EDT Appointment [address] [place] [address] 05/27/2025 10:40 AM EDT Office Visit [address] [place] [address] Elder Gomez DO [address] [facility] [address] [place] [address] Scheduled Orders Name Type Priority Associated Diagnoses Orde r Schedule OUTSIDE LAB SCAN Lab Ordered: 11/20/2021 documented as of this encounter Visit Diagnoses Not on filedocumented in this encounter Care Teams Mechanic Foreman Relationship Specialty Start Date End Date Rolando Kothari DO PCP - General 08/19/18 12/02/23 Rolando Kothari DO PCP - General Internal Medicine 12/03/23 Elder Gomez DO [address] [place] [address] Consulting Physician Cardiology 12/03/23 documented as of this encounter
--- OUTSIDE RECORDS SUMMARY | 2025-04-12 21:49 | XMS_ITS | Encounter Summary ---
Author Organization [facility] Address [address] [place] [address] Phone Care Team Providers Care Health Science Writer Name Role Phone Rolando Kothari DO Primary Care Provider [phone] Rolando Kothari DO Primary Care Provider [phone] Elder Gomez DO Unavailable [phone] Encounter Details Date Type Department Care Team (Late st Contact Info) Description 08/18/2023 Scanned Document [facility] [address] [place] [address] Scanning, Generic Provider Social History [...] Info) Description 04/15/2025 7:45 AM EDT Appointment [address] [place] [address] 05/27/2025 10:40 AM EDT Office Visit [address] [place] [address] Elder Gomez DO [address] [place] [address] [address] [place] [address] documented as of this encounter Visit Diagnoses Not on filedocumented in this encounter Care Teams Health Science Writer Relationship Specialty Start Date End Date Rolando Kothari DO PCP - General 08/19/18 12/02/23 Rolando Kothari DO PCP - General Internal Medicine 12/03/23 Elder Gomez DO 703 [facility] [address], [address] [phone] Consulting Physician Cardiology 12/03/23 documented as of this encounter
--- OUTSIDE RECORDS SUMMARY | 2025-04-12 21:49 | XMS_ITS | Encounter Summary ---
Author Organization [facility] Address [address] [place] [address] Phone Care Team Providers Care Senior Accounting Associate Name Role Phone Rolando Kothari DO Primary Care Provider [phone] Rolando Kothari DO Primary Care Provider [phone] Elder Gomez DO Unavailable [phone] Encounter Details Date Type Department Care Team (Late st Contact Info) Description 06/29/2022 Orders Only [facility] [address] [place] [address] Conversion, Onbase Social History Tobacco Use Types [...] Info) Description 04/15/2025 7:45 AM EDT Appointment [address] [place] [address] 05/27/2025 10:40 AM EDT Office Visit [address] [place] [address] Elder Gomez DO [address] [facility] [address] [place] [address] Scheduled Orders Name Type Priority Associated Diagnoses Orde r Schedule OUTSIDE LAB SCAN Lab Ordered: 06/29/2022 documented as of this encounter Visit Diagnoses Not on filedocumented in this encounter Care Teams Senior Accounting Associate Relationship Specialty Start Date End Date Rolando Kothari DO PCP - General 08/19/18 12/02/23 Rolando Kothari DO PCP - General Internal Medicine 12/03/23 Elder Gomez DO [address] [place] [address] Consulting Physician Cardiology 12/03/23 documented as of this encounter
--- OUTSIDE RECORDS SUMMARY | 2025-04-12 21:49 | XMS_ITS | Encounter Summary ---
Author Organization [facility] Address [address] [facility] [place] [address] Care Team Providers Care Hide Inspector And Sorter Name Role Phone Rolando Kothari DO Primary Care Provider [phone] Rolando Kothari DO Primary Care Provider [phone] Encounter Details Date Type Department Care Team (Late st Contact Info) Description 09/11/2023 Abstract [facility] [address] [facility] [address] [place] [address] Nelida Carrington NP Social History Tobacco Use [...] on filedocumented in this encounter Care Teams Hide Inspector And Sorter Relationship Specialty Start Date End Date Rolando Kothari DO PCP - General Internal Medicine 07/18/23 12/09/24 Rolando Kothari DO [address] [facility] [place] [address] PCP - General Internal Medicine 12/10/24 documented as of this encounter
--- OUTSIDE RECORDS SUMMARY | 2025-04-12 21:49 | XMS_ITS | Encounter Summary ---
Author Organization [facility] Address [address] [place] [address] Phone Care Team Providers Care Television Technician Name Role Phone Rolando Kothari Primary Care Provider [phone] Elder Gomez DO Unavailable Encounter Details Date Type Department Care Team (Late st Contact Info) Description 12/17/2024 Scanned Document [facility] [address] [place] [id number] Scanning, Generic Provider Social History Tobacco Use Types Packs/Day Years Used Date Smoking Tobacco: Former Cigarettes Smokeless Tobacco: Current Comments:Vape Alcohol Use Standard Drinks/Week Comments Never 0 [...] suspected to have Coronavirus/COVID-19? No / Unsure 11/24/2024 11:05 AM EDT documented as of this encounter Plan of Treatment Upcoming Encounters Date Type Department Care Team (Late st Contact Info) Description 04/15/2025 7:45 AM EDT Appointment [place] [id number] [facility] [address] [place] [address] 05/27/2025 10:40 AM EDT Office Visit [place] [address] [place] [address] [place] [address] Elder Gomez DO [address] [place] [address] [place] [address] documented as of this encounter Procedures Procedure Name Priority Date/Time Associated Diagnosis Comments OUTSIDE IMAGING SCAN 12/17/2024 documented in this encounter Results * OUTSIDE IMAGING SCAN (12/17/2024) Anatomical Region Laterality Modality Other Narrative 12/17/2024 Ordered by an unspecified provider. us Generic Provider Scanning OUTSIDE SCAN Final Result documented in this encounter Visit Diagnoses Not on filedocumented in this encounter Additional Health Concerns Assessment Noted Time A fall risk assessment has been complete d for the patient 11/24/2024 11:43 AM EDT documented as of this encounter Care Teams Television Technician Relationship Specialty Start Date End Date Rolando Kothari DO PCP - General Internal Medicine 12/03/23 Elder Gomez DO [address] [facility] 2, [facility] [address] [place] [address] Consulting Physician Cardiology 12/03/23 documented as of this encounter
--- OUTSIDE RECORDS SUMMARY | 2025-04-12 21:49 | XMS_ITS | Encounter Summary ---
Author Organization [facility] Address [address] [place] [address] Phone Care Team Providers Care Pharm Spec Name Role Phone Rolando Kothari DO Primary Care Provider [phone] Rolando Kothari DO Primary Care Provider [phone] Elder Gomez DO Unavailable [phone] Encounter Details Date Type Department Care Team (Late st Contact Info) Description 06/13/[address] [facility] [address] [place] [address] Conversion, Onbase Social History Tobacco Use Types [...] Info) Description 04/15/2025 7:45 AM EDT Appointment [address] [place] [address] 05/27/2025 10:40 AM EDT Office Visit [address] [place] [address] Elder Gomez DO [address] [facility] [address], [place] [address] [place] [address] Scheduled Orders Name Type Priority Associated Diagnoses Orde r Schedule OUTSIDE LAB SCAN Lab Ordered: 06/13/2022 documented as of this encounter Visit Diagnoses Not on filedocumented in this encounter Care Teams Pharm Spec Relationship Specialty Start Date End Date Rolando Kothari DO PCP - General 08/19/18 12/02/23 Rolando Kothari DO PCP - General Internal Medicine 12/03/23 Elder Gomez DO [address] [place] [address] Consulting Physician Cardiology 12/03/23 documented as of this encounter
--- OUTSIDE RECORDS SUMMARY | 2025-04-12 21:49 | XMS_ITS | Encounter Summary ---
Author Organization [facility] Address [address] [place] [address] Phone Care Team Providers Care Elementary School Registrar Name Role Phone TayeRolando Rodríguez GORDON Primary Care Provider [phone] Elder Gomez DO Unavailable [phone] Encounter Details Date Type Department Care Team (Late st Contact Info) Description 01/19/2025 Scanned Document [facility] [address] [place] [phone] Scanning, Generic Provider Social History Tobacco Use [...] Info) Description 04/15/2025 7:45 AM EDT Appointment [address] [place] [phone] 05/27/2025 10:40 AM EDT Office Visit [address] [place] [address] Elder Gomez DO [address] [place] [address] [address], [place] [address] [place], [place] [phone] documented as of this encounter Visit Diagnoses Not on filedocumented in this encounter Additional Health Concerns Assessment Noted Time A fall risk assessment has been complete d for the patient 11/24/2024 11:43 AM EDT documented as of this encounter Care Teams Elementary School Registrar Relationship Specialty Start Date End Date Rolando Kothari DO PCP - General Internal Medicine 12/03/23 Elder Gomez DO [address] [facility] 2, [place] [address] Consulting Physician Cardiology 12/03/23 documented as of this encounter
--- OUTSIDE RECORDS SUMMARY | 2025-04-12 21:49 | XMS_ITS | Encounter Summary ---
Author Organization [facility] Address [address] [place] [address] Phone Care Team Providers Care Turkey Farmer Name Role Phone Rolando Kothari Primary Care Provider Elder Gomez DO Unavailable [phone] Reason for Visit * Reason Comments Med Refill Encounter Details Date Type Department Care Team (Late st Contact Info) Description 04/11/[address] [phone] Elder Gomez DO [address] [place] [address] 2, [facility] [address] [place], [place] [phone] History of [place] (myocardial infarction) Social History Tobacco Use Types Packs/Day Years [...] Info) Description 04/15/2025 7:45 AM EDT Appointment [place] [address] [place] [address] 05/27/2025 10:40 AM EDT Office Visit [address] [phone] Elder Gomez DO [address] [place] [address] 2, [address] [phone] documented as of this encounter Visit Diagnoses Diagnosis History of [place] (myocardial infarction) Old myocardial infarction documented in this encounter Additional Health Concerns Assessment Noted Time A fall risk assessment has been complete d for the patient 11/24/2024 11:43 AM EDT documented as of this encounter Care Teams Turkey Farmer Relationship Specialty Start Date End Date Rolando Kothari DO PCP - General Internal Medicine 12/03/23 Elder Gomez DO 7[address] [facility] 2, [address] [address] Consulting Physician Cardiology 12/03/23 documented as of this encounter
--- OUTSIDE RECORDS SUMMARY | 2025-04-12 21:49 | XMS_ITS | Clinical Summary ---
Author Organization [facility] Address [address] [place] [address] Phone Care Team Providers Care Director Television News Name Role Phone Rolando Kothari DO Primary Care Provider Elder Gomez DO Unavailable [phone] Allergies Active Allergy Reactions Criticality Noted Date Comments Ticagrelor Shortness of breath High 06/11/2024 Medications carvedilol (Coreg) 25 mg tablet Take 1 tablet (25 mg) by mouth 2 times a day. 07/18/20 23 Active famotidine (Pepcid) 20 mg tablet Take 1 tablet (20 mg) by mouth once daily at bedtime. Active HumaLOG KwikPen Insulin 100 unit/mL injection Inject under the skin. Active isosorbide mononitrate ER (Imdur) 60 mg 24 hr tablet Take 1 tablet (60 mg) by mouth 2 times a day. 08/09/20 23 Active loratadine (Claritin) 10 mg tablet Take 1 tablet (10 mg) by mouth every other day. 06/21/20 23 Active nitroglycerin (Nitrostat) 0.[address] 1 tablet (0.4 mg) under the tongue every 5 minutes if needed. Active omeprazole (PriLOSEC) [address] capsule Take 1 capsule (20 mg) by mouth once daily. Active epoetin alexus (EPOGEN INJ) Inject 8,000 Units under the skin 3 times a week. Active heparin sodium,porcine/PF (heparin, porcine, PF,) 1,000 unit/mL solution Infuse 1 mL (1,000 Units) into a venous catheter 3 times a week. Active escitalopram (Lexapro) 10 mg tablet Take 1 tablet (10 mg) by mouth once daily. Active calcium acetate (Phoslo) 667 mg capsule Take 2 capsules (1,334 mg) by mouth 3 times a day. Active clopidogrel (Plavix) 75 mg tabletIndications: History of [place] (myocardial infarction) Take 1 tablet (75 mg) by mouth once daily. 90 tablet 3 04/23/20 24 025 Active amLODIPine (Norvasc) 5 mg tablet Take 1 tablet (5 mg) by mouth once daily. 04/29/20 24 Active sertraline (Zoloft) 100 mg tablet Take 1 tablet (100 mg) by mouth early in the morning.. 05/18/20 24 Active hydrOXYzine HCL (Atarax) 25 mg tablet Take 1 tablet (25 mg) by mouth once daily at bedtime. Active hydrALAZINE (Apresoline) 100 mg tabletIndications: Congestive heart failure, unspecified HF chronicity, unspecified heart failure type,Essential hypertension, benign Take 1 tablet (100 mg) by mouth early in the morning.. 90 tablet 3 06/11/20 24 025 Active aspirin 81 mg chewable tabletIndications: ASHD (arteriosclerotic heart disease) Chew 1 tablet (81 mg) once daily. 90 tablet 3 09/29/19 25 026 Active furosemide (Lasix) 40 mg tabletIndications: Congestive heart failure, unspecified HF chronicity, unspecified heart failure type TAKE 1 TABLET BY MOUTH EVERY DAY 90 tablet 3 10/20/19 25 Active Additional Information Patient taking differently: 80 mgoral Daily, Reported on 11/24/2024 atorvastatin (Lipitor) 80 mg tabletIndications: Hyperlipidemia, unspecified hyperlipidemia type TAKE 1 TABLET BY MOUTH EVERY NIGHT 90 tablet 3 01/14/20 25 Active Active Problems Problem Noted Date Diagnosed Date Aortic valve disorder 11/24/2024 Overview (11/24/2024): AOV insufficiency Vapes nicotine containing substance 11/24/2024 BMI 21.0-21.9, adult 12/03/2023 Anemia 08/20/2023 ASHD (arteriosclerotic heart disease) 08/20/2023 CHF (congestive heart failure) 08/20/2023 Current every day smoker 08/20/2023 Diabetes mellitus (Multi) 08/20/2023 Essential hypertension, benign 08/20/2023 History of [place] (myocardial infarction) 08/20/2023 Hyperlipidemia 08/20/2023 ESRD (end stage renal disease) on dialysis (Mult i) 08/20/2023 Status post insertion of drug eluting coronary a rtery stent 08/20/2023 Resolved Problems Problem Noted Date Diagnosed Date Resolved Date NSTEMI, initial episode of care (Multi) 08/20/2023 12/03/2023 Renal insufficiency 08/20/2023 12/03/19 24 Encounters Date Type Department Care Team Description 04/11/[address] [phone] Elder Gomez DO History of [place] (myocardial infarction) 02/22/[address] [address] Alana Pace LPN Medical Advice/Question 02/22/[address] [address] Alana Pace LPN Results 01/19/2025 Scanned Document [facility] [address] Virtual Department [place] [phone] Scanning, Generic Provider 01/19/[address] [facility] [address] [place] [address] Elder Gomez DO 01/13/[address] [address] Elder Gomez DO Hyperlipidemia, unspecified hyperlipidemia type from Last 3 Months Family History Medical History Relation Name Comments Hypertension Father Diabetes Mother Hypotension Mother Kidney disease Mother Liver disease Mother Pancreatic cancer Mother heart problem Mother Relation Name Status Comments Father Mother Social History Tobacco Use Types Packs/Day Years Used Date Smoking Tobacco: Former Cigarettes Smokeless Tobacco: Current Tobacco Cessation:Ready to Q uit: No; Counseling Given: Yes Comments:Vape Alcohol Use Standard Drinks/Week Comments Never 0 (1 standard drink = 0.6 oz pur e alcohol) Sex and Gender Information Value Date Recorded Sex Assigned at Not on file Legal Sex Male 5:22 AM EST Gender Identity Not on file Sexual Orientation Not on file Last Filed Vital Signs Vital Sign Reading Time Taken Comments Blood Pressure 124/80 11/24/2024 11:46 AM EDT Pulse 68 11/24/2024 11:46 AM EDT Temperature - - Respiratory Rate - - Oxygen Saturation - - Inhaled Oxygen Concentration - - Weight 77.1 kg (170 lb) 11/24/2024 11:46 AM EDT Height 182.9 cm (6') 11/24/2024 11:46 AM EDT Body Mass Index 23.06 11/24/2024 11:46 AM EDT Plan of Treatment Upcoming Encounters Date Type Department Care Team (Late st Contact Info) Description 04/15/2025 7:45 AM EDT Appointment [address] [place] [phone] 05/27/2025 10:40 AM EDT Office Visit [facility] [address] [facility] 250 [place] [address] Elder Gomez DO [address] [facility] [address], [place] [address] [place] [address] Health Maintenance Due Date Last Done Comments Diabetes: Hemoglobin A1C 1985 HIV Screening 1985 Lipid Panel 1985 Medicare Annual Wellness Visit (AWV) 1985 MMR Vaccines (1 of 1 - Standard series) 1986 Hepatitis C Screening 2003 Hepatitis B Vaccines (1 of 3 - 19+ 3-dose series) 2004 Pneumococcal Vaccine: Pediatrics and At-Risk Adult Patients (1 of 2 - PCV) 2004 Zoster Vaccines (1 of 2) 2004 DTaP/Tdap/Td Vaccines (1 - Tdap) 2007 HPV Vaccines (1 - 3-dose standard series) 2012 COVID-19 Vaccine (1 - season) 2024 Diabetes: Retinopathy Screening 09/05/2024 09/05/2023 Echocardiogram 03/15/2025 03/15/2024, 02/17, 03/10/2024, Additional history exists Creatinine Level 03/16/2025 03/16/2024, , 03/14/2024, Additional history exists Potassium Level 03/16/2025 03/16/2024, 02/17, 03/14/2024, Additional history exists Influenza Vaccine (#1) 2025 HIB Vaccines Aged Out No longer eligi ble based on patient's age to complete this topic Hepatitis A Vaccines Aged Out No long er eligible based on patient's age to complete this topic IPV Vaccines Aged Out No longer eligi ble based on patient's age to complete this topic Meningococcal Vaccine Aged Out No elvin franchesca eligible based on patient's age to complete this topic Rotavirus Vaccines Aged Out No longer eligible based on patient's age to complete this topic Procedures Procedure Name Priority Date/Time Associated Diagnosis Comments [facility] LIPID PANEL Routine 8:46 AM EDT [facility] CREATININE Routine 01/19/2025 8:46 AM EDT [facility] BLOOD UREA NITROGEN Routine 01/19/2025 8:46 AM EDT [facility] ELECTROLYTES Routine 01/20/20 8:46 AM EDT [facility] COAGULATION PROFILE Routine 01/19/2025 8:46 AM EDT [facility] COMPLETE BLOOD COUNT AUTO DIFF Routine 01/19/2025 8:46 AM EDT ELECTROCARDIOGRAM 12 LEAD 2024 8:17 AM EDT ECHOCARDIOGRAM 03/10/2024 from Last 3 Months or Most Recently Relevant to Health Maintenance Results * (ABNORMAL) [facility] Complete Blood Count Auto Diff (01/19/2025 8:46 AM EDT) [facility] White Blood Count 5.4 4.1 - 10.5 10*3/uL [facility] NON-[facility] Uncorrected WBC 5.4 4.1 - 10.5 10*3/uL [facility] NON-[facility] Red Blood Count 4.22 3.90 - 5.60 10*6/uL [facility] Hemoglobin 10.9(L) 13.0 - 17.0 g/dL [facility] NON-[facility] Hematocrit 32.6(L) 38.8 - 50.0 % [facility] Mean Corpuscular Volume 77.4(L) 83.5 - 101 fL [facility] Mean Corpuscular Hemoglobin 26.0(L) 27.5 - 35.2 pg [facility] Mean Corpuscular HGB Conc 33.6 32.5 - 35.6 g/dL [facility] Red Cell Distribution Width 14.1 12.0 - 14.8 % [facility] Platelet Count 104(L) 150 - 450 10*3/uL [facility] Mean Platelet Volume 8.1 6.6 - 10.1 fL [facility] Neutrophils % (Auto) 68.3 . % [facility] Lymphocytes % (Auto) 16.2 . % [facility] Monocytes % (Auto) 9.3 . % [facility] Eosinophils % (Auto) 4.6 . % [facility] Basophils % (Auto) 1.6 . % [facility] NRBC% 0.0 0 - 0.5 /100{WBC} [facility] Neutrophils # (Auto) 3.7 1.8 - 7.7 10*3/uL [facility] Lymphocytes # (Auto) 0.9(L) 1.00 - 4.8 10*3/uL [facility] Monocytes # (Auto) 0.5 0.0 - 0.8 10*3/uL [facility] Eosinophils # (Auto) 0.3 0.0 - 0.45 10*3/uL [facility] Basophils # (Auto) 0.1 0.0 - 0.2 10*3/uL [facility] Comment:PERFORMED BY:[facility] [place] [id number] MEDICAL DIRECTORYAMINI METCALF M.D. [facility] Whole blood specimen 01/19/2025 8:46 AM EDT [facility] Jason DO LAB BLOOD ORDERABLES Final Result [facility] [address] [place] [address], [facility] [address] [place] [id number] * (ABNORMAL) [facility] Blood Urea Nitrogen (01/19/2025 8:46 AM EDT) [facility] Blood Urea Nitrogen 30(H) 7 - 25 mg/dL [facility] Plasma specimen or serum specimen or whole blood specimen 01/19/2025 8:46 AM EDT [facility] LAB BLOOD ORDERABLES Final Result Performing Organization Address City/[facility]/ZIP Co de Phone Number [facility] [address] [place] [address], [facility] [address] [place] [address] * (ABNORMAL) [facility] Lipid Panel (01/19/2025 8:46 AM EDT) [facility] Cholesterol 99(L) 140 - 200 mg/dL [facility] Comment:Chol less than 200 m g/dl low risk Chol 201-239 mg/dl borderline risk Chol 240 mg/dl and greater high risk NON-[facility] HIE HDL Cholesterol 31 23 - 92 mg/dL [facility] Comment:HDL CHOL ATP-III CLA SSIFICATION Cardiovascular Risk HDL > or equal to 60 mg/dL LOW HDL < 40 mg/dL HIGH NON-[facility] HIE Triglyceride w/Reflex 41 0 - 149 mg/dL [facility] Comment:TRIG ATP III CLASSIF ICATION TRIG less than 150 mg/dL Normal TRIG 150-199 mg/dL Borderline high TRIG 200-500 mg/dL High TRIG greater than 500 mg/dL Very high Standard traceable to the Center for Disease Conrtrol and Prevention (CDC) test method. [facility] LDL Cholesterol,Calcula celena 60 0 - 100 mg/dL [facility] Comment:LDL ATP III CLASSIFI CATION LDL less than 100 mg/dL Optimal LDL 100-129 mg/dL Near or above optimal LDL 130-159 mg/dL Borderline high LDL 160-189 mg/dL High LDL greater than 189 mg/dL Very high NON-[facility] H[facility] VLDL CHOLESTEROL 8 mg/dL [facility] NON[facility] H[facility] Chol/HDL Ratio 3.2 <5.0 [facility] Comment:PERFORMED BY:[facility] [place], [place] [id number] MEDICAL DIRECTORYAMINI METCALF M.D. [facility] Plasma specimen or serum specimen or whole blood specimen 01/19/2025 8:46 AM EDT us Elder Gomez DO LAB BLOOD ORDERABLES Final Result [facility] [address] [place] [address], [facility] [address] [place] [address] * (ABNORMAL) [facility] Electrolytes (01/19/2025 8:46 AM EDT) [facility] Sodium 136 136 - 145 mmol/L [facility] NON-[facility] Potassium 3.5 3.5 - 5.1 mmol/L [facility] Chloride 95(L) 98 - 107 mmol/L [facility] Carbon Dioxide 32.2(H) 21.0 - 31.0 mmol/L [facility] NON[facility] Anion Gap 12.3 6.0 - 15.0 meq/L [facility] Plasma specimen or serum specimen or whole blood specimen 01/19/2025 8:46 AM EDT Elder Gomez LAB BLOOD ORDERABLES Final Result Performing Organization Address City/[facility] Co de Phone Number [facility] [address] [place] [address], [facility] [address] [place] [address] * (ABNORMAL) [facility] Creatinine (01/19/2025 8:46 AM EDT) [facility] Creatinine 5.57(H) 0.70 - 1.30 mg/dL [facility] NON-[facility] H[facility] ESTIMATED GFR 12.503 mL/Min [facility] Plasma specimen or serum specimen or whole blood specimen 01/19/2025 8:46 AM EDT Elder Duffdon LAB BLOOD ORDERABLES Final Result Performing Organization Address [facility] Co de Phone Number [facility] [address] [place] [id number], [facility] [address] [place] [address] * (ABNORMAL) [facility] Coagulation Profile (01/19/2025 8:46 AM EDT) [facility] Prothrombin Time 13.3(H) 9.0 - 12.9 s [facility] Comment:A hematocrit value g reater than 55% may lead to inaccurate results in coagulation testing. Patients having hematocrit values >55% require a special collection tube for coagulation studies. Please contact the laboratory at [phone] for redraw instructions. NON-[facility] H[facility] INR 1.2 [facility] Comment:INR Therapeutic Rang e A) Pre- and Peroperative [...] with mechanical heart valves: 3 - 4.5 NON-[facility] HIE Partial Thromboplastin Time 34.6 25.1 - 36.5 s [facility] Comment:A hematocrit value g reater than 55% may lead to inaccurate results in coagulation testing. Patients having hematocrit values >55% require a special collection tube for coagulation studies. Please contact the laboratory at [phone] for redraw instructions.PERFORMED BY:[facility] [place] [address] [id number] MEDICAL DIRECTORYAMINI METCALF M.D. [facility] Platelet poor plasma specimen 01/19/2025 8:46 AM EDT Elder Gomez DO LAB BLOOD ORDERABLES Final Result [facility] [address] [place] [address], [facility] [address] [place] [address] * Electrocardiogram (01/19/2025 8:17 AM EDT) 01/19/2025 8:17 AM EDT Narrative [facility] - 01/19/2025 11:28 AM EDT [facility] Main [place] [address] [place] [address] Electrocardiograph Report Signed Patient: Yoel Werner MR#: [id number] : 1985 Acct:[id number] Age/Sex: 39 / M ADM Date: 01/19/25 Loc: Room: Type: [facility] Attending Dr: Denilson Gomez DO Ordering Provider: Denilson Gomez DO Date of Service: 01/19/2511/10/810 ECG/ECG 12 lead ECG: [facility] Copies to: Test Reason : Blood Pressure : */* mmHG Vent. Rate : 65 BPM Atrial Rate : 65 BPM P-R Int : 188 ms QRS Dur : 98 ms QT Int : 448 ms P-R-T Axes : 64 -30 124 degrees QTcB Int : 465 ms Normal sinus rhythm Left axis deviation Left ventricular hypertrophy with repolarization abnormality ( Tunde product , Romhilt-Chamberlain ) Abnormal ECG When compared with ECG of 16-Dec-2024 23:56, No significant change was found Confirmed by Stephen Vivas ([id number]) on 01/19/2025 11:28:04 AM Referred By: Electronically Signed By: Stephen Vivas Transcribed By: MUS Signed By Stephen Vivas MD 01/19/25 1128 Elder Gomez DO ECG ORDERABLES Final Resul t [facility] [address] [place] [address], [place] * Echocardiogram (03/10/2024) Narrative 03/10/2024 Ordered by an unspecified provider. us Generic Provider Scanning CV ECHO PROCEDURES Fin al Result from Last 3 Months or Most Recently Relevant to Health Maintenance Insurance [employer], [facility] DUAL [employer] Care Teams Director Television News Relationship Specialty Start Date End Date Rolando Kothari DO PCP - General Internal Medicine 12/03/23 Elder Gomez DO [address] [facility] 2, [place] [address] Consulting Physician Cardiology 12/03/23
--- OUTSIDE RECORDS SUMMARY | 2025-04-12 21:49 | XMS_ITS | Encounter Summary ---
Author Organization [facility] Address [address] [place] [address] Care Team Providers Care Cable Splicer Assistant Name Role Phone Rolando Kothari DO Primary Care Provider [phone] Rolando Kothari DO Primary Care Provider [phone] Encounter Details Date Type Department Care Team (Late st Contact Info) Description 08/17/2024 External Result Encounter [facility] Department Unsolicited Donna Shaw NP [address] [facility] [address] [place] [address] Social History Tobacco Use Types Packs/Day Years [...] Procedure Name Priority Date/Time Associated Diagnosis Comments XR CHEST 2 VIEWS 08/17/2024 3:23 PM EST documented in this encounter Results * XR chest 2 views (08/17/2024 3:23 PM EST) Anatomical Region Laterality Modality Chest Radiographic Tiffanie ging 08/17/2024 3:23 PM EST Impressions 08/17/2024 3:27 PM EST There is bronchial wall thickening bilaterally. Airspace opacity is noted adjacent to the left heart border suspicious for pneumonia. Impression dictated by: Trenton Salinas M.D.08/17/2024 3:24 PM Dictation Location: [facility]--17 Transcribed By: [facility] 08/17/24 1524 Dictated By: Trenton Salinas II, MD 08/17/24 1523 Signed By: <Electronically signed by Trenton Salinas II, MD in OV> 08/17/24 1524 Narrative 08/17/2024 3:[address] [facility] Main [place] [id number] XRay Report Signed Patient: Yoel Werner MR#: [id number] : 1985 Acct:[id number] Age/Sex: 39 / M ADM Date: 08/17/24 Loc: ER Room: Type: [facility] ER Attending Dr: Copies to: Donna Shaw APRN Ordering Provider: Donna Shaw APRN Date of Service: 08/17/24 XR/XR chest 2V*: Upper Respiratory Infection XR chest 2V* 08/17/2024 2:59 PM SIGNS AND SYMPTOMS: Headache, insomnia, cough PROTOCOL: Frontal and lateral graphs of the chest COMPARISON: 08/01/2024 FINDINGS: The trachea is midline. The heart and mediastinal structures are within normal limits. There is bronchial wall thickening bilaterally. Airspace opacity is noted adjacent to the left heart border suspicious for pneumonia. The bony thorax is intact. Degenerative changes are noted in the thoracic spine. XR/XR chest 2V* Procedure Note Trenton Salinas MD - 08/17/[address] [address] XRay Report Signed Patient: Yoel Werner DMR#: [id number] : 1985Acct:[id number] Age/Sex: 39 / MADM Date: 08/17/24 Loc: ER Room:Type: [facility] ER Attending Dr: Copies to: Donna Shaw APRN Ordering Provider: Donna Shaw APRN Date of Service: 08/17/24 XR/XR chest 2V*: Upper Respiratory Infection XR chest 2V* 08/17/2024 2:59 PM SIGNS AND SYMPTOMS: Headache, insomnia, cough PROTOCOL: Frontal and lateral graphs of the chest COMPARISON: 08/01/2024 FINDINGS: The trachea is midline. The heart and mediastinal structures are withinnormal limits. There is bronchial wall thickening bilaterally. Airspace opacity is noted adjacentto the left heart border suspicious for pneumonia. The bony thorax is intact. Degenerativechanges are noted in the thoracic spine. XR/XR chest 2V* IMPRESSION: There is bronchial wall thickening bilaterally. Airspace opacity is notedadjacent to the left heart border suspicious for pneumonia. Impression dictated by: Trenton Salinas M.D.08/17/2024 3:24 PM Dictation Location: [facility]- Transcribed By: [facility] 08/17/24 1524 Dictated By: Trenton Salinas II, MD 08/17/24 1523 Signed By: <Electronically signed by Trenton Salinas II, MD inOV> 08/17/24 1524 Donna Shaw SHAVING MACHINE OPERATOR IMG XR PROCEDURES Final R esult documented in this encounter Visit Diagnoses Not on filedocumented in this encounter Care Teams Cable Splicer Assistant Relationship Specialty Start Date End Date Rolando Kothari DO PCP - General Internal Medicine 07/18/23 12/09/24 Rolando Kothrai DO [address] [place] [id number] PCP - General Internal Medicine 12/10/24 documented as of this encounter
--- OUTSIDE RECORDS SUMMARY | 2025-04-12 21:49 | XMS_ITS | Encounter Summary ---
Author Organization [facility] Address [address] [place] [address] Phone Care Team Providers Care Junior Linux Administrator Name Role Phone Rolando Kothari DO Primary Care Provider [phone] Rolando Kothari DO Primary Care Provider [phone] Elder Gomez DO Unavailable [phone] Encounter Details Date Type Department Care Team (Late st Contact Info) Description 01/09/2023 Orders Only [facility] [address] [place] [address] Conversion, Onbase Social History Tobacco Use Types [...] Info) Description 04/15/2025 7:45 AM EDT Appointment [address] [place] [address] 05/27/2025 10:40 AM EDT Office Visit [address] [place] [phone] Elder Gomez DO [address] [facility] [address] [place] [address] [place] [address] Scheduled Orders Name Type Priority Associated Diagnoses Orde r Schedule OUTSIDE LAB SCAN Lab Ordered: 01/09/2023 documented as of this encounter Visit Diagnoses Not on filedocumented in this encounter Care Teams Junior Linux Administrator Relationship Specialty Start Date End Date Rolando Kothari DO PCP - General 08/19/18 12/02/23 Rolando Kothari DO PCP - General Internal Medicine 12/03/23 Elder Gomez DO [address] [place] [address] Consulting Physician Cardiology 12/03/23 documented as of this encounter
[2025-04-12 21:53] LABS: Hematocrit 33.4 % (42.0-54.0); Hemoglobin 10.5 g/dL (14.0-18.0); Immature Granulocytes Abs Auto 0.01 10^3/uL (0.00-0.03); Immature Granulocytes Pct Auto 0.2 % (0.0-0.5); Lymphocytes Absolute Auto 1.0 10^3/uL (1.2-3.8); Mean Corpuscular HGB Conc 31.4 g/dL (29.9-35.2); Mean Corpuscular Hemoglobin 27.9 pg (25.9-34.0); Mean Corpuscular Volume 88.6 fL (80.0-94.0); Platelet Count 125 10^3/uL (150-450); Red Blood Count 3.77 10^6/uL (4.70-6.10); White Blood Count 4.5 10^3/uL (4.0-11.0)
--- OUTSIDE RECORDS SUMMARY | 2025-04-12 21:55 | XMS_ITS | CCD ---
Author Organization [facility] Care Team Providers Care Shoulder Pad Molder Name Role Phone Eusebio Olivares Unavailable Unavailable Unavailable Angel Mejía Unavailable DO Eusebio Olivares Primary Care Provider DO Denilson Gomez Attending Provider MD Angel Mejía Attending Provider [phone] DO Eusebio Olivares Attending Provider [phone] Nancy Haas Unavailable DO Eusebio Olivares Primary Care Provider MD Angel Mejía Referring Provider DO Hector aMnn Emergency Provider MD Angel Mejía Attending Provider MD Jorje Small Attending Provider MD Jorje Small Attending Provider [phone] MD Jorje Small Attending Provider DO Romain Rios [facility] Emergency Provider DO Eusebio Olivares Primary Care Provider MD Angel Mejía Referring Provider [phone] DO Yobani Hansen Emergency Provider [phone] DO Eusebio Olivares Primary Care Provider DO Hector Mann Emergency Provider MD Angel Mejía Attending Provider [phone] MD Jorje Small Attending Provider DO Romain Rios Emergency Provider MD Angel Guzman Referring Provider MD Govind Anderson Emergency Provider DO Yobani Hansen Emergency Provider DO Eusebio Olivares Primary Care Provider [phone] DO Zeus Bradley Emergency Provider Eusebio Olivares DO Primary Care Provider BRITTNI PAGAN Attending Unavailable EUSEBIO OLIVARES Primary Care Unavailable ZITA ALLEN Attending Unavailable EUSEBIO OLIVARES Primary Care Unavailable DO Eusebio Olivares Primary Care Provider MD Jorje Small Attending Provider MD Angel Mejía Attending Provider [phone] DO Denilson Gomez Attending Provider [phone] MD Cipriano Stiles Other Provider MD Tenzin Ortiz Jr Emergency Provider DO Isidoro Mesa Admit Provider DO Isidoro Mesa Attending Provider MD Nancy Haas Other Provider MD Law Cano Attending Provider DO Eusebio Olivares Primary Care Provider [phone] EUSEBIO OLIVARES Primary Care Physician DO Eusebio Olivares Primary Care Provider MD Angel Mejía Referring Provider MD Jorje Small Attending Provider TAVO, DR ADILSON Arreguin Primary Care Unavailable BALL, DR KAPLAN Attending Unavailable BALL, DR KAPLAN Admitting Unavailable BALL, DR KAPLAN Attending Unavailable BALL, DR KAPLAN Consulting Unavailable BALL, DR KAPLAN Admitting Unavailable VO, DR ADILSON Arreguin Primary Care Unavailable MAD RIVER, DR JEREL Miller Consulting Unavailable ANGEL MEJÍA Admitting Unavailable VO, DR ADILSON Arreguin Primary Care Unavailable JOYCE, ANGEL Attending Unavailable MD Jorje Small Attending Provider MD Romain Mendoza Attending Provider DO Eusebio Olivares Primary Care Provider DO Eusebio Olivares Primary Care Provider MD Angel Mejía Attending Provider [phone] DO Robyn Jose Emergency Provider DO Reina Renae Admit Provider DO Reina Renae Attending Provider TERE Benítez Other Provider Unavailable DO Denilson Gomez Other Provider MD Nery Najera Other Provider MD Brianna Stewart Other Provider MD Elvin Sharma Other Provider MD Gerald Gross Other Provider JOSH Bob Other Provider MD Janine Gonzalez Other Provider MD Renard [facility] Bravo Other Provider MD Avani Younger Other Provider [place] [facility] Christy Almaraz Other Provider MD Jackie Ross Other Provider MD Ross Catherine Attending Provider [phone] DO Eusebio Olivares Primary Care Provider Romain Mendoza Unavailable Unavailable Unavailable Eusebio Olivares Unavailable Zina Childs Unavailable DO Eusebio Olivares Primary Care Provider MD Angel Mejía Attending Provider MD Jorje Small Attending Provider MD Angel Mejía Referring Provider MD Romain Mendoza Attending Provider DO Robyn Jose Emergency Provider DO Reina Renae Admit Provider [phone] TERE Benítez Other Provider Unavailable DO Denilson Gomez Other Provider MD Nery Najera Other Provider MD Brianna Stewart Other Provider MD Elvin Sharma Other Provider MD Gerald Gross Other Provider JOSH Bob Other Provider MD Janine Gonzalez Other Provider MD David Glynnammed Naeb Other Provider MD Avani Younger Other Provider [place] [facility] Christy Almaraz Other Provider [phone] MD Jackie Ross Other Provider [phone] MD Ross Catherine Attending Provider DO Denilson Gomez Attending Provider [phone] DAVION Childs Attending Provider DO Eusebio Olivares Primary Care Provider MD Angel Mejía Attending Provider [phone] MD Angel Mejía Other Provider MD Romain Mendoza Attending Provider JOSH Grijalva Emergency Provider DO Eusebio Olivares Primary Care Provider MD Angel Mejía Attending Provider MD Kim Renteria Admit Provider TERE Benítez Other Provider Unavailable DO Denilson Gomez Other Provider MD Nery Najera Other Provider MD Brianna Stewart Other Provider MD Elvin Sharma Other Provider MD Gerald Gross Other Provider JOSH Bob Other Provider MD Janine Gonzalez Other Provider MD Mathew Glynn Najeeb Other Provider MD Avani Younger Other Provider [place] [facility] Christy Almaraz Other Provider MD Jackie Ross Other Provider MD Justino Boss Attending Provider Dr. Eusebio Olivares Primary Care Guzman Gomez, Dr. Brianna López Referring Unava ilable Taye, Dr. Eusebio La Primary Care Guzman Gomez, Dr. Brianna López Attending Ericava ilmartina Gomez, Dr. Brianna López Attending Ericava ilmartina Olivares, Dr. Eusebio La Primary Care Guzman Gomez, Dr. Brianna López Referring Unava ilable Taye, Dr. Eusebio La Primary Care Guzman Gomez, Dr. Brianna López Attending Ericava ilable Jason, Dr. Brianna López Referring Unava ilable Taye, Dr. Eusebio La Primary Care Ericavai labpaulino Gomez, Dr. Brianna López Referring Unava ilable Jason, Dr. Brianna López Attending Unava ilable Jason, Dr. Brianna López Attending Unava ilable Taye, Dr. Eusebio La Primary [facility] Guzman Olivares, Dr. Eusebio La Primary [facility] Ericavaangella labpaulino Gomez, Dr. Brianna López Attending Unava ilmartina Olivares, Dr. Eusebio La Primary Care Guzman Olivares, Dr. Eusebio La [facility] EricavaDO Eusebio Cody Primary Care Provider MD Angel Mejía Attending Provider DO Denilson Gomez Attending Provider MD Angel eMjía Other Provider MD Jorje Small Attending Provider DO Eusebio Olivares Primary Care Provider MD Romain Mendoza Attending Provider MD Jorje Small Attending Provider DO Eusebio Olivares Primary Care Provider DO Eusebio Olivares Primary Care Provider MD Angel Mejía Referring Provider MD Romain Mendoza Attending Provider DO Eusebio Olivares Primary Care Provider MD Romain Mendoza Attending Provider [phone] DO Eusebio Olivares Primary Care Provider MD Romain Mendoza Attending Provider MD Law Cano Admit Provider DO Jorge Mederos Attending Provider MD Brianna Stewart Other Provider MD Bryce Coy Other Provider Eusebio Olivares MD Primary Care Provider DO Eusebio Olivares Primary Care Provider MD Romain Mendoza Attending Provider MD Angel Mejía Referring Provider JOSH Forte Attending Provider Ari [facility] E Emergency Provider DO Eusebio Olivares Primary Care Provider MD Law Cano Admit Provider [phone] MederosDO Jorge hargrove Attending Provider MD Brianna Stewart Other Provider MD Bryce Coy Other Provider MD Romain Mendoza Attending Provider MD Angel Mejía Referring Provider Negritajameel CAR OILER [place] Attending Provider Ari [facility] Kavya E Emergency Provider [phone] DO Eusebio Olivares Primary Care Provider Robyn GUERIN Attending Unavailable Eusebio Olivares DO Primary Care Provider Brianna Gomez DO Unavailable DO Eusebio Olivares Primary Care Provider MD Roamin Mendoza Attending Provider [phone] MD Angel Mejía Attending Provider DO Eusebio Olivares Primary Care Provider [phone] DO Robyn Jose Emergency Provider DO Isidoro Mesa Admit Provider [phone] [facility] MD Bryce Coy Other Provider DAVION Su Other Provider Unavailable MD Angel Mejía Other Provider MD Nancy Haas Other Provider MD Julio Allen Attending Provider DO Romain Rios Emergency Provider MD Kim Winn Admit Provider MD Kim Renteria Attending Provider DO Eusebio Olivares Primary Care Provider Eusebio Olivares DO Primary Care Provider Eusebio Oilvares DO Primary Care Provider Dorene Valenzuela MD Admit Provider Dorene Valenzuela MD Attending Provider Angel Mejía MD Other Provider Tenzin Ortiz MD Emergency Provider Donna Shaw APRN Emergency Provider Romain Rios DO Emergency Provider Unavai subhash Rileyoom DO, Dwayne Admit Provider [phone] Lindherreraoom DO, Dwayne Attending Provider Law Cano MD Attending Provider Julio Allen MD Admit Provider Enrique Kirby DO Attending Provider Reina Armijo MD Other Provider Eusebio Olivares DO Primary Care Provider [phone] Dorene Valenzuela MD Admit Provider Dorene Valenzuela MD Attending Provider Angel Mejía MD Other Provider Tenzin Ortiz MD Emergency Provider [phone] Donna Shaw APRN Emergency Provider Romain Rios DO Emergency Provider Unavaangella Sharpem DO, Dwayne Admit Provider Law Cano MD Attending Provider Julio Allen MD Admit Provider Toney Riley MD Attending Provider [phone] Crow Conte MD Other Provider Eusebio Olivares DO Primary Care Provider Angel Mejía MD Other Provider Toney Riley MD Attending Provider Crow Conte MD Other Provider Eusebio Olivares DO Primary Care Provider Tenzin Ortiz MD Emergency Provider [phone] Donna Shaw APRN Emergency Provider Romain Rios DO Emergency Provider Guzman Little , Dwayne Admit Provider Law Cano MD Attending Provider Angel Mejía MD Other Provider Julio Allen MD Admit Provider Rosemary MOLINA, Toney Attending Provider Crow Conte MD Other Provider Zeus Bradley DO Emergency Provider [phone] Eusebio Olivares DO Primary Care Provider Hector Mann DO Emergency Provider Judd Jacobs MD Admit Provider Judd Jacobs MD Attending Provider Bryce Coy MD Other Provider Georges ANTHONY-C, Samra Other Provider Unavailable Nancy Haas MD Other Provider Eusebio Olivares DO Primary Care Provider Brianna Gomez DO Unavailable [phone] Eusebio Olivares MD Primary Care Provider DAVID BERG Attending Unavailable DAVID BERG Attending Unavailable DAVID BERG Attending Unavailable DAVID BERG Attending Unavailable Eusebio Olivares DO Primary Care Provider Law Cano MD Attending Provider Angel Mejía MD Other Provider Robyn Jose DO Emergency Provider STEPHEN LOU Referring Unavailable LUCERO GUZMAN Attending Unavailable YESIKA CARDENAS Attending Unavailable STEPHEN LOU Attending Unavailable JO CHARLES Referring Unavailable MARIS SINHA Attending Unavailable STEPHEN LOU Admitting Unavailable MOUKARBFLOWER, STEPHEN Attending Unavailable MOUKARBEL, STEPHEN Attending Unavailable THERESA, YESIKA Referring Unavailable MOUKARBEL, STEPHEN Referring Unavailable SCAR CHARLSEBHA Referring Unavailable MOUKARBEL, STEPHEN Referring Unavailable MOUKARBEL, STEPHEN Referring Unavailable THERESA, YESIKA Referring Unavailable THERESA, YESIKA Attending Unavailable Hector Mann DO Emergency Provider Unavailable Denilson Gomez DO Attending Provider BRIANNA GOMEZ Attending Unavailable BRIANNA GOMEZ Referring Unavailable BALL, EUSEBIO E Primary Care Unavailable BRIANNA GOMEZ Attending Unavailable JASON, BRIANNA S Referring Unavailable BALL, EUSEBIO E Primary Care Unavailable Ball DO, Eusebio Primary Care Provider [phone] Eusebio Olivares DO Attending Provider Bryce Coy MD Attending Provider Romain Mendoza MD Attending Provider [phone] Zeus Bradley Attending Unavailable Zeus Bradley Admitting Unavailable Ball, Eusebio Primary Care Unavailable Denilson Gomez Admitting Unavailable Ball, Eusebio Primary Care Unavailable Denilson Gomez Attending Unavailable Romain Mendoza Attending Unavailabl Romain Lundy Admitting Unavailabl e Ball, Eusebio Primary Care Unavailable Denilson Gomez Admitting Unavailable Ball, Eusebio Primary Care Unavailable Denilson Gomez Attending Unavailable Robyn Jose Attending Unavailable Robyn Jose Admitting Unavailable Ball, Eusebio Primary Care Unavailable Tenzin Ortiz Jr Attending Unavailable Tenzin Ortiz Jr Admitting Unavailable Ball, Eusebio Primary Care Unavailable Joyce, Angel Consulting Unavailable Toney Riley Attending Unavailable Ball, Eusebio Primary Care Unavailable Doamekpor, Julio E Admitting Unavailab le Conte, Basem Consulting Unavailable Bryce Coy Consulting Unavailable Law Cano Attending Unavailable Judd Jacobs Admitting Unavailable Ball, Eusebio Primary Care Unavailable Samra Su Consulting Unavailable Joyce, Angel Consulting Unavailable Nancy Haas Consulting Unavailable Joyce, Angel Consulting Unavailable Lindedmond, Dwayne Admitting Unavailabl e Law Cano Attending Unavailable Ball Eusebio Primary Care Unavailable Joyce, Angel Consulting Unavailable Dorene Valenzuela Attending Unavailable Dorene Valenzuela Admitting Unavailable [place] [facility] Unavailable Donna Shaw Attending Unavailable Donna Shaw Admitting Unavailable Eusebio Olivares Primary [facility] Unavailable Allergies Allergy Classification Reported Allergen(s) Allergy Type Date of Onset Reaction(s) Facility (3 sources) patient allergy list reviewed by nurse or physicia Propensity to adverse reactions 9 Comment:Done [facility] Other (1 source) No Known Medication Allergies; Translations: [No Known Medication Allergies] Propensity to adverse reactions (disorder) [facility] Rep[facility] (4 sources) Ticagrelor; Translations: [TICAGRELOR] Drug Allergy 4 Shortness of breath [facility] (3 sources) Ticagrelor Propensity to adverse reactions 4 Shortness of breath [facility] (1 source) Ticagrelor Drug Allergy 5 [facility] Repository Medications Current Medications Medication Drug Class(es) Dates Sig (Normalized) Sig (Original) acetaminophen 500 mg oral tablet (12 sources) Start: 09-02-2024 take 2 tablets by mouth three times daily as needed for pain acetaZOLAMIDE 250 mg oral tablet (2 sources) Carbonic Anhydrase Inhibitor take 1 tablet by mouth every twenty-four hours acetaZOLAMIDE 250 MG 1 tablet Orally Once a day Active amLODIPine 5 mg oral tablet (20 sources) Dihydropyridine Calcium Channel Brittany Start: 11-01-2024 take 1 tablet by mouth once daily Start: 10-16-2024 End: 11-01-2024 take 1 tablet by mouth once daily Amlodipine 2.5 mg tablet Discontinued 0 .ROUTE .COMPLEX 90 October 16, 2024 7:56am November 01, 2024 8:56pm TAKE 1 TABLET BY MOUTH EVERY DAY Start: 08-28-2024 take 2 tablets by mo uth once daily Amlodipine 2.5 mg tablet Active 5 MG PO Daily August 28, 2024 12:00am Start: 04-29-2024 End: 10-16-2024 take 4 tablets by mouth once daily Amlodipine 2.5 mg tablet Discontinued 10 MG PO Daily August 28, 2024 1:00am October 16, 2024 7:57am Start: 08-18-2023 End: 08-28-2024 take 1 tablet by mouth once daily Amlodipine 2.5 mg tablet Discontinued 2.5 MG PO Daily April 29, 2024 12:00am August 28, 2024 9:02am Start: 08-18-2023 End: 04-09-2024 Start: 08-21-2021 End: 06-11-2024 take 1 tablet by mouth once daily Amlodipine 5 mg tablet Discontinued 5 MG PO Daily September 11, 2021 1:00am November 18, 2021 11:22am amLODIPine Besyl ate Active aspirin 81 mg chewable tablet (20 sources) Platelet Aggregation Inhibitor, Nonsteroidal Anti-inflammatory Drug Start: 11-17-2021 End: 09-29-2025 take 1 tablet by mouth once daily in the morning take 1 tablet by mouth once maxim y Aspirin 81 81 MG 1 tablet Orally Once a day Active take 1 tablet by mouth once maxim y Aspirin 81 MG Oral Tablet Delayed Release TAKE 1 TABLET DAILY. Quantity: 90 Refills: 3 Ordered: 26-Feb-2023 Brianna Gomez DO Active atorvastatin 80 mg oral tablet (20 sources) HMG-CoA Reductase Inhibitor Start: 11-17-2021 End: 09-16-2024 take 1 tablet by mouth once daily in the morning Start: 08-08-2021 End: 11-18-2021 take 1 tablet by mouth once daily Atorvastatin 40 mg tablet Discontinued 40 MG PO Daily September 11, 2021 1:00am November 18, 2021 11:22am Basaglar KwramaPen (2 sources) Start: 08-29-2022 Basaglar KwikP en SubCutaneous, Daily Start Date: 08/29/22 Status: Ordered Blood Glucose Monitoring Sup pl (Accu-Chek Guide Me) w/Device kit (11 sources) Start: 08-27-2023 Blood Glucose Monitoring Suppl (Accu-Chek Guide Me) w/Device kit USE DIRECTED 08/27/2023 Active Start: 08-27-2023 Blood Glucose Monitoring Suppl (Accu-Chek Guide Me) w/Device kit USE DIRECTED 0 08/27/2023 Active Blood-Glucose Meter (Accu-Ch ek Guide Glucose Meter) misc (15 sources) Start: 01-08-2025 Blood-Glucose Meter (Accu-Chek Guide Glucose Meter[place] [facility] [place] .ROUTE .COMPLEX 1 January 08, 2025 1:12pm USE DIRECTED Start: 10-14-2024 End: 01-08-2025 Blood-Glucose Meter (Accu-Ch ek Guide Glucose Meter) misc Discontinued 0 .ROUTE .MEDSUPPLY October 14, 2024 1:00am January 08, 2025 1:12pm As directed Start: 10-14-2024 Blood-Glucose Meter (Accu-Chek Guide Glucose Meter) misc Active 0 .ROUTE .MEDSUPPLY October 14, 2024 1:00am As directed Start: 10-14-2024 Blood-Glucose Meter (Accu-Chek Guide Glucose Meter) misc Active 0 .ROUTE .MEDSUPPLY October 14, 2024 12:00am As directed Blood-Glucose Meter,Continuo us (Freestyle Ramy 3 [place]) misc (20 sources) Start: 03-19-2024 Blood-Glucose Meter,Continuous (Freestyle Ramy 3 [place]) misc Active 0 .ROUTE .MEDSUPPLY March 18, 2024 11:00pm As directed Start: 03-19-2024 Blood-Glucose Meter,Continuous (Freestyle Ramy 3 [place]) misc Active 0 .ROUTE .MEDSUPPLY March 19, 2024 12:00am As directed Start: 03-02-2024 End: 10-15-2024 Blood-Glucose Meter,Continuo us (Freestyle Ramy 3 [place]) misc Discontinued 0 .Route March 02, 2024 12:00am October 15, 2024 8:46pm As directed Start: 03-02-2024 Blood-Glucose Meter,Continuous (Freestyle Ramy 3 [place]) misc Active 0 .Route March 01, 2024 11:00pm As directed Start: 03-02-2024 Blood-Glucose Meter,Continuous (Freestyle Ramy 3 [place]) misc Active 0 .Route March 02, 2024 12:00am As directed Blood-Glucose Sensor (Freest yle Ramy 3 Plus Sensor) device (14 sources) Start: 05-17-2024 Blood-Glucose Sensor (Freestyle Ramy 3 Plus Sensor) device Active 0 .ROUTE .MEDSUPPLY May 17, 2024 12:00am As directed Start: 05-17-2024 Blood-Glucose Sensor (Freestyle Ramy 3 Plus Sensor) device Active 0 .ROUTE .MEDSUPPLY May 16, 2024 11:00pm As directed Blood-Glucose,Relocation Manager,Cont (Freestyle Ramy 3 [place]) misc (12 sources) Start: 03-19-2024 Blood-Glucose,Relocation Manager,Cont (Freestyle Ramy 3 [place]) misc Active 0 .ROUTE .MEDSUPPLY March 19, 2024 12:00am As directed Start: 03-02-2024 End: 10-15-2024 Blood-Glucose,Relocation Manager,Cont (Freestyle Ramy 3 [place]) misc Discontinued 0 .Route March 02, 2024 12:00am October 15, 2024 8:46pm As directed calcium acetate 667 mg oral tablet (20 sources) Start: 11-13-2023 take 3 tablets by mo uth at mealtime Start: 11-13-2023 take 1334 mg by mout h three times daily Calcium Acetate Active 1334 MG PO Three times daily November 13, 2023 2:59pm Start: 03-27-2023 take 2 capsules by m outh three times daily at mealtime calcium acetate (Phoslo) 667 MG capsule TAKE 2 CAPSULES BY MOUTH 3 TIMES DAILY WITH EACH MEAL 03/27/2023 Active Start: 03-26-2023 End: 11-13-2023 Calcium Acetate 667 mg Table t Discontinued 667 MG PO As Directed March 26, 2023 12:00am November 13, 2023 3:08pm Start: 03-26-2023 End: 11-13-2023 take 2 tablets by mouth three times daily Calcium Acetate 667 mg tablet Active 1334 MG PO Three times daily November 13, 2023 2:59pm calcium carbonate 500 mg chewable tablet (20 [...] (20 sources) alpha-Adrenergic Brittany, beta-Adrenergic Brittany Start: 07-21-2024 take 1 tablet by mouth twice daily Start: 01-09-2023 End: 07-21-2024 take 1 tablet by mouth twice daily at mealtime Carvedilol (Coreg) 25 mg tablet Discontinued 25 MG PO Twice daily 60 January 09, 2023 12:00am July 21, 2024 8:40am must administer with a meal/food Start: 11-13-2021 End: 01-09-2023 take 1 tablet by mouth twice daily Carvedilol 12.5 mg tablet Discontinued 12.5 MG PO Twice daily November 13, 2021 12:00am January 09, 2023 5:58pm take 1 tablet by lang th every twenty-four hours Carvedilol 12.5 MG 1 tablet with food Orally ONCE A DAY Active cinnamon and chromium (2 sources) Start: 08-10-2019 cinnamon and c hromium cinnamon and chromium Start Date: 08/10/19 Status: Ordered Continuous Blood Gluc Sensor (Dexcom G6 Sensor) misc (11 sources) Start: 08-23-2023 Continuous Blo od Gluc Sensor (Dexcom G6 Sensor) misc CHANGE SENSOR EVERY 10 DAYS*E10.65* 08/23/2023 Active Start: 08-23-2023 Continuous Blo od Gluc Sensor (Dexcom G6 Sensor) misc CHANGE SENSOR EVERY 10 DAYS*E10.65* 0 08/23/2023 Active Continuous Blood Gluc Transm it (Dexcom G6 transmitter) misc (11 sources) Start: 09-07-2023 Continuous Blo od Gluc Transmit (Dexcom G6 transmitter) misc CHANGE EVERY 90 DAYS DX E10.65 09/07/2023 Active Start: 09-07-2023 Continuous Blo od Gluc Transmit (Dexcom G6 transmitter) misc CHANGE [...] Active diclofenac sodium 0.01 mg/mg topical gel (11 sources) Nonsteroidal Anti-inflammatory Drug Start: 09-09-2023 diclofenac sodium (Voltaren) 1 % gel Indications: Left shoulder pain, unspecified chronicity , Impingement of left shoulder Apply 2 g topically in the morning and 2 g in the evening and 2 g before bedtime. 50 g 2 09/09/2023 Active Epoetin Alexus (3 sources) Erythropoiesis-sti mulating Agent inject 8000 [IU] by subcutaneous injection three times weekly epoetin alexus (EPOGEN INJ) Inject 8,000 Units under the skin 3 times a week. Active epoetin alexus-epbx 41065 UNT/ML Injectable Solution [Retacrit] (20 sources) Retacrit 79232 U NIT/ML as directed Injection ONCE EVERY 4 WEEKS Not-Taking Retacrit 07191 U NIT/ML as directed Injection ONCE EVERY 4 WEEKS Active famotidine 20 mg oral tablet (20 sources) Histamine-2 Receptor Antagonist Start: 06-22-2024 take 1 tablet by mouth twice daily in the evening Start: 03-23-2024 End: 06-22-2024 take 1 tablet by mouth twice daily Famotidine 20 mg tablet Discontinued 0 .ROUTE .COMPLEX 180 March 23, 2024 11:04am June 22, 2024 2:03pm TAKE 1 TABLET BY MOUTH TWICE A DAY Start: 11-13-2021 End: 03-23-2024 take 2 tablets by mouth once daily at bedtime Famotidine 20 mg tablet Discontinued 40 MG PO Daily at bedtime November 13, 2021 12:00am March 23, 2024 11:04am Start: 11-13-2021 End: 03-23-2024 take 1 tablet by mouth in the morning famotidine (Pepcid) 20 MG tablet Take 20 mg by mouth in the morning and 20 mg before bedtime. 05/26/2023 Active Start: 11-13-2021 End: 03-23-2024 take 40 mg by mouth once daily at bedtime Famotidine Discontinued 40 MG PO Daily at bedtime November 13, 2021 12:00am March 23, 2024 11:04am take 1 tablet by lang th once daily at bedtime famotidine (Pepcid) 20 mg tablet Take 1 tablet (20 mg) by mouth once daily at bedtime. Active gabapentin 100 mg oral capsule (5 sources) Anti-epileptic Agent Start: 01-12-2025 take 1 capsule by mouth once daily at bedtime 2 ml heparin sodium, porcine 1000 unt/ml injection (3 sources) Unfractionated Heparin, Anti-coagulant heparin sodium,porcine /PF (heparin, porcine, PF,) 1,000 unit/mL solution Infuse 1 mL (1,000 Units) into a venous catheter 3 times a week. Active hydrALAZINE hydrochloride 100 mg oral tablet (20 sources) Arteriolar Vasodilator Start: 03-17-2024 End: 06-11-2025 take 1 tablet by mouth twice daily Start: 02-12-2023 End: 06-11-2024 take 1 tablet by mouth once daily Hydralazine 50 mg tablet Discontinued 50 MG PO Daily April 12, 2023 7:45am February 04, 2024 10:32pm Start: 10-03-2022 End: 08-07-2024 take 1 tablet by mouth three times daily Hydralazine 50 mg tablet Discontinued 50 MG PO Three times daily November 13, 2023 12:00am November 26, 2023 8:56am Start: 11-18-2021 End: 10-03-2022 take 2 tablets by mouth three times daily Hydralazine 25 mg Tablet Discontinued 50 MG PO Three times daily 180 November 18, 2021 12:00am October 03, 2022 7:01pm Start: 11-18-2021 End: 10-03-2022 take 1 mg by mouth four times daily hydrALAZINE 25 mg Tab mg [...] 0 Refills: 0 Ordered: 21-Nov-2021 DO Active hydrOXYzine hydrochloride 25 mg oral tablet (20 sources) Antihistamine Start: 10-30-2024 take 1 tablet by lang th once daily in the evening Start: 10-16-2024 End: 10-30-2024 take 1 tablet by mouth once daily at bedtime Hydroxyzine Hcl 25 mg tablet Discontinued 0 .ROUTE .COMPLEX 90 October 16, 2024 7:56am October 30, 2024 8:30am TAKE 1 TABLET BY MOUTH EVERYDAY AT BEDTIME Start: 05-21-2024 End: 10-30-2024 take 1-2 tablets by mouth at bedtime Hydroxyzine Hcl 25 mg tablet Discontinued 0 .ROUTE .COMPLEX September 02, 2024 10:15pm October 16, 2024 7:56am TAKE 1 to 2 TABLET BY MOUTH AT BEDTIME Start: 05-21-2024 End: 09-02-2024 take 1 tablet by mouth at bedtime Hydroxyzine Hcl 25 mg tablet Discontinued 0 .ROUTE .COMPLEX May 21, 2024 12:41pm September 02, 2024 10:16pm TAKE 1 TABLET BY MOUTH AT BEDTIME Start: 04-29-2024 End: 05-21-2024 take 1 tablet by mouth once daily at bedtime Hydroxyzine Hcl 25 mg tablet Discontinued 25 MG PO Daily at bedtime April 29, 2024 12:00am May 21, 2024 12:41pm hyoscyamine sulfate 0.125 mg oral tablet (11 sources) Start: 07-09-2023 take 1 tablet by mouth every six hours as needed for pain hyoscyamine (Anaspaz,Levsin) 0.125 MG tablet TAKE 1 TABLET BY MOUTH EVERY 6 HOURS NEEDED FOR ABDOMINAL PAIN 07/09/2023 Active 3 ml insulin glargine 100 unt/ml pen injector (20 sources) Insulin Analog Start: 10-14-2024 End: 10-30-2024 Start: 11-26-2023 End: 10-14-2024 inject 20 [IU] by subcutaneous injection at bedtime Insulin Glargine (Lantus U-100 Insulin) 100 unit/mL solution Discontinued 20 UNIT SUBCUT Bedtime November 26, 2023 12:00am October 14, 2024 3:08pm Start: 04-12-2023 End: 11-13-2023 inject 10 [IU] by subcutaneous injection once daily Insulin Glargine (Lantus Solostar U-100 Insulin) 100 unit/mL (3 mL) insulin pen Discontinued 10 UNIT SUBCUT Daily April 12, 2023 12:00am November 13, 2023 3:01pm Start: 09-11-2021 insulin glargi ne (LANTUS SOLOSTAR, BASAGLHUMAIRA CHINOIKPEN) 100 unit/mL (3 mL) Insulin Glargine (Basaglar Kwikpen U-100 Insulin) 100 unit/mL (3 mL) insulin pen Active 15 UNIT SUBCUT Daily September 11, 2021 10:23pm 0 09/11/2021 Active Start: 09-11-2021 End: 01-09-2023 Insulin Glargine (Basaglar Kwikpen U-100 Insulin) 100 unit/mL (3 mL) insulin pen Discontinued 12 UNIT SUBCUT Every morning September 11, 2021 1:00am January 09, 2023 2:53am Start: 09-11-2021 End: 01-09-2023 Start: 09-11-2021 insulin glargi ne (LANTUS SOLOSTAR, BASAGLAR KWIKPEN) 100 unit/mL (3 mL) Insulin Glargine (Basaglar Kwikpen U-100 Insulin) 100 unit/mL (3 mL) insulin pen Active 15 UNIT SUBCUT Daily September 11, 2021 10:23pm 0 09/11/2021 Active Comment on above: Insulin Glargine (Ba saglar Kwikpen U-100 Insulin) 100 unit/mL (3 mL) insulin pen Active 15 UNIT SUBCUT Daily September 11, 2021 10:23pm 3 ml insulin lispro 100 unt/ ml pen injector (20 sources) Insulin Analog Start: 10-14-2024 Start: 11-13-2023 End: 10-14-2024 Insulin Lispro (Humalog Kwik pen Insulin) 100 unit/mL insulin pen Discontinued 1 sliding scale dose SUBCUT Use as Directed November 13, 2023 12:00am October 14, 2024 2:48pm Start: 05-29-2022 End: 11-26-2023 Insulin Lispro (Humalog U-10 0 Insulin) 100 unit/mL solution Discontinued 1 sliding scale dose SUBCUT Use as Directed November 13, 2023 3:01pm November 26, 2023 8:57am Start: 05-24-2022 HumaLOG KwikPe n 100 UNIT/ML Subcutaneous Solution Pen- injector USE DIRECTED Quantity: 0 Refills: 0 Ordered: 24-May-2022 DO Start : 24-May-2022 Active insulin lispro ( HumaLOG KWIKPEN) 100 UNIT/ML injection Inject under the skin Active HumaLOG 100 UNIT /ML as directed Injection SLIDING SCALE NEEDED Active HumaLOG KwikPen 100 UNIT/ML 1 (one) mL 2-10u SC AC based on insulin sliding scale, Insulin Sliding Scale before meals: BS 300 10u Active HumaLOG 100 UNIT /ML as directed Injection SLIDING SCALE NEEDED Active Insulin Lispro (Humalog Kwikpen Insulin) 100 unit/mL insulin pen (20 sources) Start: 10-14-2024 Insulin Lispro (Humalog Kwikpen Insulin) 100 unit/mL insulin pen Active 0 sliding scale dose SUBCUT Use as Directed October 14, 2024 2:43pm Please contact the information source for Protocol details. Start: 10-14-2024 Insulin Lispro (Humalog Kwikpen Insulin) 100 unit/mL insulin pen Active 0 sliding scale dose SUBCUT Use as Directed October 14, 2024 1:43pm Please contact the information source for Protocol details. Start: 11-13-2023 End: 10-14-2024 Insulin Lispro (Humalog Kwik pen Insulin) 100 unit/mL insulin pen Discontinued 1 sliding scale dose SUBCUT Use as Directed November 13, 2023 12:00am October 14, 2024 2:48pm Start: 11-13-2023 End: 10-14-2024 Insulin Lispro (Humalog Kwik pen Insulin) 100 unit/mL insulin pen Discontinued 1 sliding scale dose SUBCUT Use as Directed November 12, 2023 11:00pm October 14, 2024 1:48pm Start: 11-13-2023 Insulin Lispro (Humalog Kwikpen Insulin) 100 unit/mL insulin pen Active 1 sliding scale dose SUBCUT Use as Directed November 12, 2023 11:00pm Start: 11-13-2023 Insulin Lispro (Humalog Kwikpen Insulin) 100 unit/mL insulin pen Active 1 sliding scale dose SUBCUT Use as Directed November 13, 2023 12:00am Isosorbide Dinitrate (2 sources) Nitrate Vasodilator Start: [...] bedtime. 5 mL 1 09/05/2023 10/05/2023 Active lisinopril 20 mg oral tablet (20 sources) Angiotensin Converting Enzyme Inhibitor Start: 10-18-2024 take 1 tablet by mouth once daily Start: 04-09-2024 End: 10-18-2024 take 1 tablet by mouth once daily Lisinopril 20 mg tablet Discontinued 20 MG PO Daily April 29, 2024 2:56pm October 18, 2024 5:46pm nitroglycerin 0.4 mg subling ual tablet (20 sources) Nitrate Vasodilator Start: 11-17-2021 Nitroglycerin 0. 4 MG as directed Sublingual Active ofloxacin 3 mg/ml ophthalmic solution (11 sources) Quinolone Antimicrobial Start: 07-23-2023 take 1 drop(s) into the eye(s) four times daily ofloxacin (Ocuflox) 0.3 % ophthalmic solution INSTILL 1 DROP INTO RIGHT EYE 4 TIMES A DAY DIRECTED 07/23/2023 Active omeprazole 40 mg delayed release oral capsule (20 sources) Proton Pump Inhibitor Start: 04-21-2024 take 1 capsule by mouth once daily in the morning Start: 05-09-2022 End: 04-21-2024 take 1 capsule by mouth once daily in the morning Omeprazole 40 mg capsule,delayed release(DR/EC) Discontinued 40 MG PO Every morning May 09, 2022 12:00am April 21, 2024 1:04pm take 1 capsule by [facility] once daily omeprazole (PriLOSEC) [address] capsule Take 1 capsule (20 mg) by mouth once daily. Active ondansetron 4 mg disintegrating oral tablet (20 sources) Serotonin-3 Receptor Antagonist Start: 07-09-2023 ondansetron ODT (Zofran-ODT) 4 MG disintegrating tablet DISSOLVE 1 TABLET ON THE TONGUE EVERY 6 HOURS NEEDED FOR NAUSEA/ VOMITING 07/09/2023 Active Start: 09-19-2021 End: 09-30-2021 take 1 tablet by mouth twice daily as needed for nausea and vomiting Ondansetron Hcl 4 mg tablet Discontinued 4 MG PO Twice daily as needed for nausea and vomiting 8 4 September 19 2022 1:00am October 01, 2021 12:14am Start: 09-11-2021 End: 09-30-2021 take 1 tablet by mouth every six hours as needed for nausea and vomiting Ondansetron 4 mg tablet,disintegrating Discontinued 4 MG PO Q6H as needed for nausea and vomiting September 11, 2021 1:00am October 01, 2021 12:14am Comment on above: Take 4 mg by mouth e very 6 hours as needed. One Touch Glucometer (4 sources) Start: 08-26-19 One Touch Glucometer use as directed for 365 days Ultra meter Aug, Active paricalcitol 0.001 mg oral capsule (3 sources) Vitamin D3 Analog End: 11-25-19 take 3 capsules by mouth three times weekly paricalcitol (Zemplar) 1 mcg capsule Take 3 capsules (3 mcg) by mouth 3 times a week. 11/24/2024 Discontinued (Therapy completed) polyethylene glycol 3350 429350 mg / potassium chloride 2970 mg / sodium bicarbonate 6740 mg / sodium chloride 5860 mg / sodium sulfate 00008 mg powder for oral solution (11 sources) Osmotic Laxative Start: 07-09-20 GaviLyte-G 236 g solution TAKE 240 ML EVERY 10 MINUTES UNTIL FECAL EFFLUENT IS CLEAR 07/09/2023 Active Prednisolon-Moxiflox -Bromfenac 1-0.5-0.075 % solution (11 sources) Start: 09-05-19 Ojmyhwoauia-Frscatzm-Fgga fenac 1-0.5-0.075 % solution Indications: Cataract of left eye with neovascularization Administer 1 drop into affected eye(s) in the morning and 1 drop at noon and 1 drop in the evening and 1 drop before bedtime. 10 mL 1 09/05/2023 Active retacrit 72786 unit/ml solution (5 sources) Retacrit 09631 U NIT/ML as directed Injection ONCE EVERY 4 WEEKS Active sertraline 100 mg oral tablet (20 sources) Serotonin Reuptake Inhibitor Start: 07-21-20 End: 01-14-20 25 take 1 tablet by mouth once daily Start: 02-18-2024 End: 03-01-2024 take 1 tablet by mouth once daily Sertraline 100 mg tablet Discontinued 0 .ROUTE .COMPLEX 90 February 18, 2024 9:21pm March 01, 2024 10:18am TAKE 1 TABLET BY MOUTH EVERY DAY FOR 30 DAYS Start: 07-16-2023 End: 07-21-2024 take 1 tablet by mouth once daily Sertraline (Zoloft) 100 mg tablet Discontinued 100 MG PO Daily October 17, 2023 1:00am February 18, 2024 9:21pm 5 ml sodium ferric gluconate complex 12.5 mg/ml injection (2 sources) End: 06-11-2024 ferric gluconate (Ferrlecit) 62.5 mg/5 mL injection Infuse 5 mL (62.5 mg) into a venous catheter every other day. 06/11/2024 Discontinued (Therapy completed) sodium zirconium cyclosilicate 83124 mg powder for oral suspension (7 sources) Start: 11-12-2022 take 1 dose by mouth once daily Lokelma 10 GM 1 packet dissolved in water Orally Once a day for 30 day(s) Oct, Active Vitamin D (2 sources) Start: 08-29-2022 Vitamin D International_Unit, Oral, qWeek Start Date: 08/29/22 Status: Ordered (16 sources) Start: 09-17-2024 Start: 09-17-2024 End: 09-17-2024 Start: 08-17-2024 End: 08-28-2024 Start: 05-21-2024 End: 09-02-2024 Start: 05-17-2024 Start: 03-19-2024 Start: 03-19-2024 End: 05-17-2024 Start: 03-02-2024 Start: 03-02-2024 End: 04-09-2024 Start: 03-02-2024 End: 05-17-2024 Start: 02-13-2024 End: 06-22-2024 Start: 11-26-2023 Start: 11-13-2023 End: 11-26-2023 Start: 11-13-2023 Start: 11-13-2023 End: 11-26-2023 Start: 05-29-2022 End: 11-13-2023 Completed/Discontinued Medications Medication Drug Class(es) Dates Sig (Normalized) Sig (Original) albuterol 0.83 mg/ml inhalation solution (20 sources) beta2-Adrenergic Agonist Start: 03-24-2024 End: 08-28-2024 take 2.5 mg by inhalation every six hours as needed for cough Albuterol Sulfate 2.5 mg /3 mL (0.083 %) solution for nebulization Discontinued 2.5 MG INHALATION Every 6 hours as needed for cough 75 30 March 25, 2024 1:04pm August 28, 2024 9:00am Start: 03-24-2024 End: 08-28-2024 Start: 11-14-2023 End: 11-26-2023 take 2.5 mg by inhalation every four to six hours as needed Albuterol Sulfate 2.5 mg /3 mL (0.083 %) solution for nebulization Discontinued 2.5 MG INHALATION EVERY 4-6 HOURS as needed for bronchospasm 180 November 14, 2023 3:16pm November 26, 2023 8:55am Start: 11-14-2023 End: 08-28-2024 take 1 puff(s) by inhalation every six hours as needed Albuterol Sulfate 90 mcg/actuation HFA aerosol inhaler Discontinued 2 PUFF INHALATION Every 6 hours as needed for bronchospasm 8.5 November 14, 2023 3:16pm March 02, 2024 1:09pm Start: 11-14-2023 End: 11-26-2023 Start: 11-14-2023 End: 08-28-2024 amoxicillin 875 mg / clavulanate 125 mg oral tablet (20 sources) Penicillin-class Antibacterial Start: 03-02-2024 End: 03-10-2024 take 1 tablet by mouth twice daily Amoxicillin-Pot Clavulanate 875-125 mg tablet Discontinued 1 TAB PO Twice daily March 02, 2024 12:00am March 10, 2024 7:40am Start: 03-02-2024 End: 03-10-2024 azithromycin 250 mg oral tablet (14 sources) Macrolide Antimicrobial Start: 08-29-2024 End: 09-16-2024 take 1 tablet by mouth every twenty-four hours Azithromycin 250 mg Tablet Discontinued 250 MG PO Q24H 3 August 29, 2024 1:00am September 16, 2024 5:17pm start 08/30/24 benzonatate 100 mg oral capsule (20 sources) Non-narcotic Antitussive Start: 03-02-2024 End: 04-09-2024 Benzonatate 100 mg capsule Discontinued 100 MG PO 2-3 TIMES PER DAY as needed for cough March 02, 2024 12:00am April 09, 2024 2:39pm Blood-Glucose Sensor (Freestyle Ramy 3 Sensor) device (20 sources) Start: 03-19-2024 End: 05-17-2024 Blood-Glucose Sensor (Freestyle Ramy 3 Sensor) device Discontinued 0 .ROUTE .MEDSUPPLY March 19, 2024 12:00am May 17, 2024 5:51pm Use to test home BS qid Start: 03-19-2024 End: 05-17-2024 Blood-Glucose Sensor (Freest yle Ramy 3 Sensor) device Discontinued 0 .ROUTE .MEDSUPPLY March 18, 2024 11:00pm May 17, 2024 4:51pm Use to test home BS qid Start: 03-19-2024 Blood-Glucose Sensor (Freestyle Ramy 3 Sensor) device Active 0 .ROUTE .MEDSUPPLY March 19, 2024 12:00am Use to test home BS qid Start: 03-02-2024 End: 05-17-2024 Blood-Glucose Sensor (Freest yle Ramy 3 Sensor) device Discontinued 0 .Route March 02, 2024 12:00am May 17, 2024 5:51pm As directed Start: 03-02-2024 End: 05-17-2024 Blood-Glucose Sensor (Freest yle Ramy 3 Sensor) device Discontinued 0 .Route March 01, 2024 11:00pm May 17, 2024 4:51pm As directed Start: 03-02-2024 Blood-Glucose Sensor (Freestyle Ramy 3 Sensor) device Active 0 .Route March 02, 2024 12:00am As directed brimonidine tartrate 2 mg/ml ophthalmic solution (1 source) alpha-Adrenergic Agonist Start: 10-01-2021 take 1 drop(s) into the eye(s) three times daily brimonidine (ALPHAGAN) 0.2 % ophthalmic solution Use 1 Drop in the left eye three times daily for 7 days. 10 mL 0 10/01/2021 Active Comment on above: Use 1 Drop in the le ft eye three times daily for 7 days. cephalexin 500 mg oral capsule (14 sources) Cephalosporin Antibacterial Start: 08-29-2024 End: 09-16-2024 take 1 capsule by mouth twice daily Cephalexin 500 mg capsule Discontinued 500 MG PO Twice daily 10 August 29, 2024 1:00am September 16, 2024 4:14am clopidogrel 75 mg oral tablet (20 sources) [id number] Platelet Inhibitor Start: 11-17-2021 End: 04-23-2025 take 1 tablet by mouth once daily in the morning Clopidogrel (Plavix) 75 mg tablet Discontinued 75 MG PO Every morning September 10, 2022 5:49pm April 09, 2024 2:39pm dextromethorphan hydrobromide 1 mg/ml / guaiFENesin 20 mg/ml oral solution (14 sources) Uncompetitive Z-yflxsi-M-aspartate Receptor Antagonist, Sigma-1 Agonist Start: 08-17-2024 End: 08-28-2024 take 1 mL by mouth five times daily as needed for cough Dextromethorphan -Guaifenesin (Robitussin Cough-Chest Matt Dm) 5-100 mg/5 mL liquid Discontinued 10 ML PO EVERY 4-8 HOURS as needed for cough August 17, 2024 1:00am August 28, 2024 9:00am Start: 08-17-2024 End: 08-28-2024 take 1 mL by mouth five times daily as needed for cough Dextromethorphan-Guaifenesin (Robitussin Cough-Chest Matt Dm) 5-100 mg/5 mL liquid Discontinued 10 ML PO EVERY 4-8 HOURS as needed for cough August 17, 2024 1:00am August 28, 2024 9:00am Start: 08-17-2024 End: 08-28-2024 take 1 mL by mouth five times daily as needed for cough Dextromethorphan-Guaifenesin (Robitussin Cough-Chest Matt Dm) 5-100 mg/5 mL liquid Discontinued 10 ML PO EVERY 4-8 HOURS as needed for cough 500 August 17, 2024 12:00am August 28, 2024 8:00am Start: 08-17-2024 take 1 mL by mouth f kalee times daily as needed for cough Dextromethorphan-Guaifenesin (Robitussin Cough-Chest Matt Dm) 5-100 mg/5 mL liquid Active 10 ML PO EVERY 4-8 HOURS as needed for cough 500 August 17, 2024 12:00am dicyclomine hydrochloride 10 mg oral capsule (20 sources) Anticholinergic Start: 09-11-2021 End: 09-30-2021 take 1 capsule by mouth twice daily Dicyclomine 10 mg capsule Discontinued 10 MG PO Twice daily September [...] Drop in eyes t hree times daily. doxycycline hyclate 100 mg oral tablet (16 sources) Tetracycline-class Drug Start: 08-17-2024 End: 08-28-2024 take 1 tablet by mouth twice daily Doxycycline Hyclate 100 mg tablet Discontinued 100 MG PO Twice daily 14 August 17, 2024 1:00am August 28, 2024 9:01am Start: 09-03-2022 take 1 capsule by [facility] twice daily doxycycline hyclate 100 mg Cap 100 mg = 1 cap(s), Oral, BID, # 14 cap(s), Refills(s) 0, Pharmacy: [facility]/pharmacy #[id number], 182, cm, 08/29/22 10:31:00 EST, Height/Length Dosing, 76.2, kg, 08/29/22 10:31:00 EST, Weight Dosing Start Date: 09/03/22 Status: Ordered Epoetin Alexus-Epbx (20 sources) Start: 04-09-2022 End: 11-26-2023 Start: 04-09-2022 End: 11-26-2023 inject 85496 [IU] by subcutaneous injection every month Epoetin Alexus-Epbx (Retacrit) 20,000 unit/mL solution Discontinued [id number] UNIT SUBCUT every month April 08, 2022 11:00pm November 26, 2023 7:56am Start: 04-09-2022 End: 11-26-2023 inject 65075 [IU] by subcutaneous injection every month Epoetin Alexus-Epbx (Retacrit) 20,000 unit/mL solution Discontinued [id number] UNIT SUBCUT every month April 09, 2022 12:00am November 26, 2023 8:56am Start: 04-09-2022 inject 06006 [IU] by subcutaneous injection every month Epoetin Alexus-Epbx (Retacrit) 20,000 unit/mL solution Active [id number] UNIT SUBCUT every month April 08, 2022 11:00pm Start: 04-09-2022 inject 19741 [IU] by subcutaneous injection every month Epoetin Alexus-Epbx (Retacrit) 20,000 unit/mL solution Active [id number] UNIT SUBCUT every month April 09, 2022 12:00am Epoetin Alexus-Epbx (20 sources) Start: 11-13-2023 End: 11-26-2023 Start: 11-13-2023 End: 11-26-2023 Epoetin Alexus-Epbx (Retacrit) 20,000 unit/2 mL solution Discontinued [id number] UNIT SUBCUT .q4wks November 12, 2023 11:00pm November 26, 2023 7:56am Start: 11-13-2023 End: 11-26-2023 Epoetin Alexus-Epbx (Retacrit) 20,000 unit/2 mL solution Discontinued [id number] UNIT SUBCUT .q4wks November 13, 2023 12:00am November 26, 2023 8:56am Start: 11-13-2023 Epoetin Alexus-E pbx (Retacrit) 20,000 unit/2 mL solution Active [id number] UNIT SUBCUT .q4wks November 13, 2023 12:00am Ergocalciferol (20 sources) Provitamin D2 Compound Start: 11-13-2023 End: 11-26-2023 Ergocalciferol (Vitamin D2) Discontinued UNIT PO November 13, 2023 12:00am November 26, 2023 8:56am Start: 11-13-2023 Ergocalciferol (Vitamin D2) Active UNIT PO November 13, 2023 12:00am Start: 07-02-2023 take 1 capsule by mo uth every week ergocalciferol (Vitamin D2) 1.25 MG (37425 UT) capsule Take 1 capsule by mouth 1 (one) time per week. 07/02/2023 Active Start: 04-09-2022 End: 03-26-2023 take 1 capsule by mouth every week Ergocalciferol (Vitamin D2) 1,250 mcg (50,000 unit) capsule Discontinued 1250 MCG PO every week April 09, 2022 12:00am March 26, 2023 8:36am Start: 04-09-2022 take 1250 ug by mout h every week Ergocalciferol (Vitamin D2) Active 1250 MCG PO every week April 09, 2022 12:00am Start: 03-14-2022 take 1 capsule by mo uth every week Ergocalciferol 1.25 MG (15042 UT) 1 capsule Orally Q week for 90 day(s) Feb, Active take 1 capsule by mo uth every week Vitamin D (Ergocalciferol) 1.25 MG (50050 UT) TAKE 1 CAPSULE BY MOUTH ONCE A WEEK for 84 Active Ergocalciferol (Vitamin D2) 50,000 unit tablet (14 sources) Start: 11-13-2023 End: 11-26-2023 Ergocalciferol (Vitamin D2) 50,000 unit tablet Discontinued UNIT PO November 13, 2023 12:00am November 26, 2023 8:56am Start: 11-13-2023 End: 11-26-2023 Ergocalciferol (Vitamin D2) 50,000 unit tablet Discontinued UNIT PO November 12, 2023 11:00pm November 26, 2023 7:56am escitalopram 10 mg oral tablet (20 sources) Serotonin Reuptake Inhibitor Start: 11-13-2021 End: 11-13-2021 Escitalopram Oxalate Discontinued MG TABLET November 13, 2021 12:00am November 13, 2021 1:15am Start: 09-29-2021 End: 10-17-2023 take 1 tablet by mouth once daily at bedtime Escitalopram Oxalate 10 mg tablet Discontinued 10 MG PO Daily at bedtime [...] you are still having burning with urination Start: 09-11-2021 End: 09-30-2021 furosemide 80 mg oral tablet (20 sources) Loop Diuretic Start: 11-01-2024 End: 11-02-2024 take 2 tablets by mouth once daily Furosemide 40 mg tablet Discontinued 80 MG PO Daily November 01, 2024 12:00am November 02, 2024 1:51pm Start: 08-01-2024 End: 03-20-2025 take 1 tablet by mouth twice daily Furosemide (Lasix) 80 mg tablet Discontinued 80 MG PO Twice daily January 19, 2025 12:00am March 20, 2025 10:27am Start: 06-20-2023 End: 05-18-2024 take 1 tablet by mouth twice daily Furosemide 40 mg Tablet Discontinued 40 MG PO BID@0800,1600 60 March 02, 2024 12:00am May 18, 2024 4:27pm Start: 08-29-[address] [facility] Date: 08/29/22 Status: Ordered Start: 11-17-2021 End: 08-01-2024 take 2 tablets by mouth twice daily Furosemide 40 mg tablet Discontinued 80 MG PO Twice daily May 18, 2024 6:09pm August 01, 2024 4:00am Start: 11-17-2021 End: 03-02-2024 take 1 tablet by mouth once daily in the morning Furosemide 40 mg tablet Discontinued 40 MG PO Every morning September 10, 2022 5:49pm March 02, 2024 1:55pm take 2 tablets by [facility] every twenty-four hours Furosemide 40 MG 2 tablet Orally Once a day for 90 day(s) Active 12 hr guaiFENesin 600 mg extended release oral tablet (20 sources) Start: 08-29-2024 End: 09-02-2024 take 1 tablet by mouth twice daily Guaifenesin 600 mg Tablet Extended Release 12hr Discontinued 600 MG PO Twice daily 05 23August 29, 2024 1:00am September 02, 2024 10:15pm Start: 03-02-2024 End: 04-09-2024 take 2 tablets by mouth twice daily, then take 1 tablet by mouth every twelve hours Guaifenesin (Mucinex) 600 mg Tablet Extended Release 12hr Discontinued 1200 MG PO Twice daily 15 03March 02, 2024 12:00am April 09, 2024 2:40pm homatropine methylbromide 0.3 mg/ml / HYDROcodone bitartrate 1 mg/ml oral solution (15 sources) Opioid Agonist, Cholinergic Muscarinic Agonist Start: 08-17-2024 End: 08-28-2024 Hydrocodone-Homatropine (Hycodan) 5-1.5 mg/5 mL (5 mL) syrup Discontinued 5 ML PO Every 6 hours as needed for cough 200 August 17, 2024 August 28, 2024 9:01am Start: 08-17-2024 End: 08-28-2024 Insulin Glargine (Lantus U-100 Insulin) 100 unit/mL solution (20 sources) Start: 11-26-2023 End: 10-14-2024 inject 20 [IU] by subcutaneous injection at bedtime Insulin Glargine (Lantus U-100 Insulin) 100 unit/mL solution Discontinued 20 UNIT SUBCUT Bedtime November 26, 2023 12:00am October 14, 2024 3:08pm Start: 11-26-2023 End: 10-14-2024 inject 20 [IU] by subcutaneous injection at bedtime Insulin Glargine (Lantus U-100 Insulin) 100 unit/mL solution Discontinued 20 UNIT SUBCUT Bedtime November 25, 2023 11:00pm October 14, 2024 2:08pm Start: 11-26-2023 inject 20 [IU] by ramon bcutaneous injection at bedtime Insulin Glargine (Lantus U-100 Insulin) 100 unit/mL solution Active 20 UNIT SUBCUT Bedtime November 25, 2023 11:00pm Start: 11-26-2023 inject 20 [IU] by ramon bcutaneous injection once daily Insulin Glargine (Lantus U-100 Insulin) 100 unit/mL solution Active 20 UNIT SUBCUT Daily November 25, 2023 11:00pm Start: 04-09-2024 inject 15 [IU] by ramon bcutaneous injection once daily Insulin Glargine (Lantus U-100 Insulin) 100 unit/mL solution Active 15 UNIT SUBCUT Daily November 26, 2023 12:00am Insulin Lispro (Humalog U-10 0 Insulin) 100 unit/mL Solution (20 sources) Start: 05-29-2022 End: 11-13-2023 Insulin Lispro (Humalog U-10 0 Insulin) 100 unit/mL Solution Discontinued 1 sliding scale dose SUBCUT Use as Directed May 28, 2022 11:00pm November 13, 2023 2:08pm 15 to 1 Start: 05-29-2022 End: 11-13-2023 Insulin Lispro (Humalog U-10 0 Insulin) 100 unit/mL Solution Discontinued 1 sliding [...] (Humalog U-10 0 Insulin) 100 unit/mL solution (20 sources) Start: 11-13-2023 End: 11-26-2023 Insulin Lispro (Humalog U-10 0 Insulin) 100 unit/mL solution Discontinued 1 sliding scale dose SUBCUT Use as Directed November 13, 2023 2:01pm November 26, 2023 7:57am Start: 11-13-2023 End: 11-26-2023 Insulin Lispro (Humalog U-10 0 Insulin) 100 unit/mL solution Discontinued 1 sliding scale dose SUBCUT Use as Directed November 13, 2023 3:01pm November 26, 2023 8:57am Start: 11-13-2023 Insulin Lispro (Humalog U-100 Insulin) 100 unit/mL solution Active 1 sliding scale dose SUBCUT Use as Directed November 13, 2023 3:01pm 24 hr isosorbide mononitrate 60 mg extended release oral tablet (20 sources) Nitrate Vasodilator Start: 10-03-2022 End: 01-31-2023 take 1 tablet by mouth twice daily, then take 1 tablet by mouth every twenty-four hours Isosorbide Mononitrate 60 mg tablet extended release 24 hr Discontinued 60 MG PO Twice daily January 09, 2023 12:00am January 31, 2023 9:18am Start: 10-03-2022 End: 11-12-2022 take 1 tablet by mouth once daily, then take 1 tablet by mouth every twenty-four hours Isosorbide Mononitrate 60 mg Tablet Extended Release 24 Hr Discontinued 60 MG PO Daily at 0600 30 October 03, 2022 1:00am November 12, 2022 9:50am Start: 07-05-2022 End: 10-03-2022 take 1 tablet by mouth once daily at bedtime, then take 1 tablet by mouth every twenty-four hours Isosorbide Mononitrate 30 mg tablet extended release 24 hr Discontinued 30 MG PO Daily at bedtime July 09, 2022 1:00am October 03, 2022 7:01pm loratadine 10 mg oral tablet (20 sources) Start: 02-13-2024 End: 06-22-2024 take 1 tablet by mouth every other day Loratadine 10 mg tablet Discontinued 0 .ROUTE .COMPLEX February 13, 2024 9:03am June 22, 2024 2:03pm TAKE 1 TABLET BY MOUTH EVERY OTHER DAY Start: 02-13-2024 take 1 tablet by lang th every other day Loratadine Active 0 .ROUTE .COMPLEX February 13, 2024 9:03am TAKE 1 TABLET BY MOUTH EVERY OTHER DAY Start: 01-03-2023 End: 08-28-2024 take 1 tablet by mouth every other day Loratadine 10 mg tablet Discontinued 10 MG PO every other day June 22, 2024 1:00am August 28, 2024 9:02am TAKE 1 TABLET BY MOUTH EVERY OTHER DAY Start: 01-03-2023 losartan potassium 25 mg oral tablet (20 sources) Angiotensin 2 Receptor Brittany Start: 11-12-2022 End: 01-09-2023 take 1 tablet by mouth twice daily Losartan 25 mg tablet Discontinued 25 MG PO Twice daily November 12, 2022 12:00am January 09, 2023 2:54am Start: 08-29-2022 losartan Oral, Daily Start Date: 08/29/22 Status: Ordered Start: 09-11-2021 End: 06-03-2022 Start: 08-08-2021 End: 06-03-2022 take 1 tablet by mouth once daily Losartan 25 mg tablet Discontinued 25 MG PO Daily September 11, 2021 1:00am June 03, 2022 3:07pm On Hold: Hold until follow-up with [employer] on 11/21/21 24 hr metFORMIN hydrochloride 500 mg extended release oral tablet (20 sources) Biguanide Start: 09-11-2021 End: 11-18-2021 take 1 tablet by mouth twice daily Metformin 500 mg tablet extended release 24 hr Discontinued 500 MG PO Twice daily September 11, 2021 1:00am November 18, 2021 11:22am Start: 09-11-2021 End: 11-18-2021 metFORMIN ER (GLUCOPHAGE XR) 500 mg 24 hr tablet Metformin Active 500 MG PO Twice daily September 11, 2021 10:23pm 0 09/11/2021 Active Start: 08-10-2019 take 1 mg by mouth once daily metformin 500 mg ER Tab mg tab(s), Oral, Daily, Refills(s) 0 Start Date: 08/10/19 Status: Ordered take 1 tablet by lang every twelve hours metFORMIN HCl 1000 MG 1 tablet with a meal Orally TWICE A DAY Active Comment on above: Metformin Active 500 MG PO Twice daily September 11, 2021 10:23pm Nirmatrelvir-Riton avir (4 sources) Start: 09-17-2024 End: 10-30-2024 take 1 tablet by mouth once daily Nirmatrelvir-Ritonavir (Paxlovid) 300 mg (150 mg x 2)-100 mg tablets,dose pack Discontinued 0 PO .COMPLEX September 17, 2024 4:24pm October 30, 2024 8:17am 1tb (150/100) daily x 5 days Start: 09-17-2024 End: 09-17-2024 take 1 tablet by mouth once Nirmatrelvir-Ritonavir (Paxlovid) 300 mg (150 mg x 2)-100 mg tablets,dose pack Discontinued 0 PO .[facility] September 17, 2024 1:00am September 17, 2024 4:24pm orally per package directions Nirmatrelvir-Ritonavir (Paxlovid) 300 mg (150 mg x 2)-100 mg tablets,dose pack (16 sources) Start: 09-17-2024 End: 10-30-2024 take 1 tablet by mouth once daily Nirmatrelvir-Ritonavir (Paxlovid) 300 mg (150 mg x 2)-100 mg tablets,dose pack Discontinued 0 PO .[facility] September 17, 2024 4:24pm October 30, 2024 8:17am 1tb (150/100) daily x 5 days Start: 09-17-2024 take 1 tablet by lang th once daily Nirmatrelvir-Ritonavir (Paxlovid) 300 mg (150 mg x 2)-100 mg tablets,dose pack Active 0 PO .[facility] September 17, 2024 3:24pm 1tb (150/100) daily x 5 days Start: 09-17-2024 End: 09-17-2024 take 1 tablet by mouth once Nirmatrelvir-Ritonavir (Paxlovid) 300 mg (150 mg x 2)-100 mg tablets,dose pack Discontinued 0 PO .[facility] September 17, 2024 1:00am September 17, 2024 4:24pm orally per package directions Start: 09-17-2024 End: 09-17-2024 take 1 tablet by mouth once Nirmatrelvir-Ritonavir (Paxlovid) 300 mg (150 mg x 2)-100 mg tablets,dose pack Discontinued 0 PO .[facility] September 17, 2024 12:00am September 17, 2024 3:24pm orally per package directions oxyCODONE hydrochloride 5 mg oral tablet (20 sources) Opioid Agonist Start: 10-17-2023 End: 03-01-2024 take 1 tablet by mouth twice daily as needed for pain Oxycodone 5 mg tablet Discontinued 5 MG PO Twice daily as needed for pain 07 06October 17, 2023 March 01, 2024 9:38am potassium chloride 10 meq extended release oral tablet (20 sources) Start: 11-17-2021 End: 04-09-2022 Potassium Chloride (Klor-Con 10) 10 mEq Tablet Extended Release Discontinued 10 MEQ PO Daily November 17, 2021 12:00am April 09, 2022 11:50pm take 1 capsule by [facility] every twenty-four hours Potassium Chloride ER 10 MEQ 1 capsule with food Orally Once a day Active predniSONE 20 mg oral tablet (20 sources) Start: 08-17-2024 End: 08-28-2024 take 1 tablet by mouth once daily Prednisone 20 mg tablet Discontinued 20 MG PO Daily 11 20August 17, 2024 1:00am August 28, 2024 9:02am Start: 03-02-2024 End: 03-10-2024 take 1 tablet by mouth once daily Prednisone 20 mg tablet Discontinued 20 MG PO Daily 12 21March 02, 2024 12:00am March 10, 2024 7:43am RETACRIT INJECTION (20 sources) Start: 02-11-2023 Start: 02-11-2023 RETACRIT INJEC TION Jan, 1000 mL Start: 01-03-2023 Start: 01-03-2023 RETACRIT INJEC TION December, 1000 mL Start: 12-06-2022 Start: 12-06-2022 RETACRIT INJEC TION Nov, 1000 mL Start: 04-20-2022 RETACRIT INJEC TION Apr, 1000 units Start: 04-20-2022 Start: 04-20-2022 RETACRIT INJEC TION Apr, 1000 U ticagrelor 90 mg oral tablet (18 sources) Start: 04-09-2024 End: 04-22-2024 take 1 tablet by mouth twice daily Ticagrelor 90 mg tablet Discontinued 90 MG PO Twice daily April 09, 2024 12:00am April 22, 2024 8:11pm 12 hr timolol 5 mg/ml ophthalmic solution (2 sources) beta-Adrenergic Brittany Start: 10-01-2021 timolol maleate (TIMOPTIC) 0.5 % ophthalmic solution Use 1 Drop in the left eye twice daily. 10 mL 0 10/01/2021 Active Comment on above: Use 1 Drop in the le ft eye twice daily. torsemide 20 mg oral tablet (20 sources) Loop Diuretic Start: 11-13-2021 End: 11-18-2021 take 3 tablets by mouth once daily Torsemide 20 mg tablet Discontinued 60 MG PO Daily November 13, 2021 12:00am November 18, 2021 11:22am Start: 11-13-2021 End: 11-18-2021 take 60 mg by mouth once daily Torsemide Discontinued 60 MG PO Daily November 13, 2021 12:00am November 18, 2021 11:22am take 3 tablets by mo ut every twenty-four hours Torsemide 20 MG 3 TABLETS Orally Once a day for 90 day(s) Active Problems Active Problems Problem Classification Problem Date Documented Date Episodic/Chronic Acquired foot deformities (4 sources) Hallux valgus (acquired), left foot; Translations: [Hallux valgus (acquired)] 06-01-2024 Chronic Acute and unspecified renal failure (20 sources) Renal failure syndrome; Translations: [Unspecified kidney failure] Onset: 5 01-09-2023 Chronic Acute and unspecified renal failure (20 sources) Injury of kidney; Translations: [Acute kidney failure, unspecified] 09-11-2021 Episodic Anxiety disorders (20 sources) Generalized anxiety disorder; Translations: [Generalized anxiety disorder] Chronic Calculus of urinary tract (2 sources) Kidney stone 08-29-2022 Episodic Chronic kidney disease (20 sources) Chronic kidney disease stage 3B ; Translations: [Stage 3b chronic kidney disease] Onset: 4 11-13-2021 Chronic Comment on above: Chronic kidney disease (20 sources) Chronic kidney disease; Translations: [Chronic kidney disease, stage III (moderate)] Onset: 2 Resolved: 2 Chronic obstructive pulmonary disease and bronchiectasis (20 sources) Mucopurulent chronic bronchitis; Translations: [Mucopurulent chronic bronchitis] 11-14-2023 Chronic Comment on above: Age started 17, 1ppd , quit 04/2024 Complication of device; implant or graft (20 sources) Arteriovenous fistula occlusion; Translations: [Other specified complication of vascular prosthetic devices, implants and grafts, initial encounter] Onset: 5 Chronic Congestive heart failure; nonhypertensive (20 sources) Congestive heart failure; Translations: [Congestive heart failure, unspecified] Onset: 4 11-13-2021 Chronic Coronary atherosclerosis and other heart disease (20 sources) Coronary arteriosclerosis; Translations: [Coronary atherosclerosis of unspecified type of vessel, [place] or graft] Onset: 4 08-13-2022 Chronic Comment on above: Echo: LVEF 60%, LVH, normal RV function but enlarged, RVSP elevated, severe MR - 08/2024 Echo: LVEF 60%, LVH, normal RV function but enlarged, RVSP elevated, severe MR - 08/2024,LHC x 5,PCI/stent prox LAD x 3 - October 2022- residual disease in LCx and RCA not able to treat surgically,PCI/stent RCA x 2 - January 2023,No intervention - 02/2024 Deficiency and other anemia (20 sources) Anemia of renal disease; Translations: [Anemia in chronic kidney disease] 06-22-2024 Chronic Deficiency and other anemia (16 sources) Anemia in chronic kidney disease; Translations: [Anemia in chronic kidney disease] Onset: 2 Resolved: 2 Chronic Deficiency and other anemia (20 sources) Anemia; Translations: [Anemia in chronic kidney disease] Chronic Deficiency and other anemia (20 sources) Anemia, [...] 9 11-14-2021 Chronic Diabetes mellitus without complication (12 sources) Glycosuria; Translations: [Glycosuria] Onset: 3 Episodic Disorders of lipid metabolism (20 sources) Hyperlipidemia; Translations: [Other and unspecified hyperlipidemia] Onset: 2 08-29-2022 Chronic Esophageal disorders (17 sources) Gastroesophageal reflux disease; Translations: [Gastro-esophageal reflux disease without esophagitis] 01-09-2023 Chronic Esophageal disorders (2 sources) Esophageal disorders; Translations: [Gastro-esophageal reflux disease with esophagitis, without bleeding] Essential hypertension (20 sources) Benign essential hypertension; Translations: [Benign essential hypertension] Onset: 4 11-13-2021 Chronic Genitourinary symptoms and ill-defined conditions (14 sources) Proteinuria, unspecified; Translations: [Proteinuria] Onset: 2 Resolved: 2 Episodic Glaucoma (20 sources) Raised intraocular pressure; Translations: [Ocular hypertension, unspecified eye] Onset: 2 10-01-2021 Chronic Headache; including migraine (2 sources) Cluster headache 08-10-2019 Chronic Headache; including migraine (20 sources) Headache; Translations: [Headache] 05-22-2022 Episodic Headache; including migraine (1 source) Headache; including migraine; Translations: [Headache, unspecified] Onset: 5 Heart valve disorders (18 sources) Mitral valve regurgitation; Translations: [Nonrheumatic mitral (valve) insufficiency] Onset: 5 09-15-2024 Chronic Hypertension with complications and secondary hypertension (20 [...] morphologic changes] Onset: 2 Resolved: 2 Chronic Nonspecific chest pain (20 sources) Chest pain; Translations: [Chest pain, unspecified] 10-14-2021 Episodic Osteoarthritis (2 sources) Arthritis 08-29-2022 Chronic Other aftercare (5 sources) Encounter for palliative care; Translations: [Encounter for palliative care] 10-17-2023 Episodic Other aftercare (2 sources) Encounter for therapeutic drug level monitoring; Translations: [Encounter for therapeutic drug level monitoring] Onset: 5 Episodic Other and ill-defined heart disease (2 sources) Heart disease 08-29-2022 Chronic Other circulatory disease (20 sources) Acquired arteriovenous fistula aneurysm; Translations: [Arteriovenous fistula, acquired] Chronic Other circulatory disease (20 sources) Arteriovenous fistula, acquired; Translations: [Arteriovenous fistula, acquired] Onset: 5 Chronic Other circulatory disease (20 sources) Arteriovenous fistula; Translations: [Arteriovenous fistula, acquired] 11-13-2023 Chronic Other circulatory disease (20 sources) H/O: heart disorder; Translations: [Personal history of other diseases of the circulatory system] 04-10-2022 Episodic Other circulatory disease (2 sources) Other specified symptoms and signs involving the circulatory and respiratory systems; Translations: [Other specified symptoms and signs involving the circulatory and respiratory systems] Onset: 5 Episodic Other connective tissue disease (20 sources) Muscle pain; Translations: [Myalgia, unspecified site] 09-19-2021 Episodic Other diseases of kidney and ureters (20 sources) Secondary hyperparathyroidism; Translations: [Secondary hyperparathyroidism of renal origin] 11-13-2023 Chronic Other diseases of kidney and ureters (20 sources) Secondary hyperparathyroidism of renal origin; Translations: [Secondary hyperparathyroidism (of renal origin)] Onset: 2 Resolved: 2 Chronic Other diseases of veins and lymphatics (20 sources) Peripheral venous insufficiency; Translations: [Venous insufficiency (chronic) (peripheral)] 11-13-2023 Episodic Other endocrine disorders (20 sources) Hypoglycemia; Translations: [Hypoglycemia, unspecified] 07-09-2022 Chronic Other endocrine disorders (6 sources) Hypoglycemia, unspecified; Translations: [Hypoglycemia, unspecified] Onset: 4 06-22-2024 Chronic Other eye disorders (20 sources) Hemorrhage of left vitreous body; Translations: [Vitreous hemorrhage, left eye] 10-01-2021 Chronic Other gastrointestinal disorders (2 sources) Pneumatosis cystoides intestinalis; Translations: [Other specified disorders of intestine] Episodic Other gastrointestinal disorders (13 sources) Constipation; Translations: [Constipation, unspecified] 10-19-2023 Episodic Other hematologic conditions (20 sources) Raised cardiac enzyme or marker; Translations: [Other specified abnormalities of plasma proteins] 11-13-2021 Episodic Other injuries and conditions due to external causes (20 sources) Hypothermia; Translations: [Hypothermia, initial encounter] 07-09-2022 Episodic Other injuries and conditions due to external causes (11 sources) Contusion; Translations: [Other injury of unspecified body region, initial encounter] 12-25-2022 Episodic Other lower respiratory disease (3 sources) Pulmonary edema; Translations: [Chronic pulmonary edema] 08-28-2024 Chronic Other lower respiratory disease (9 sources) Chronic pulmonary edema; Translations: [Pulmonary congestion and hypostasis] 08-28-2024 Chronic Other lower respiratory disease (20 sources) Cough; Translations: [Cough] 05-22-2022 Episodic Other lower respiratory disease (19 sources) Hypoxemia; Translations: [Hypoxemia] 03-09-2024 Episodic Other lower respiratory disease (4 sources) Hypoxemia; Translations: [Hypoxemia] 03-09-2024 Episodic Other lower respiratory disease (15 sources) Hemoptysis; Translations: [Hemoptysis] 08-28-2024 Episodic Other lower respiratory disease (2 sources) Dyspnea; Translations: [Dyspnea, unspecified] 04-29-2024 Episodic Other male genital disorders (20 sources) Induratio penis plastica; Translations: [Induration penis plastica] Onset: 3 Chronic Other male genital disorders (3 sources) Male erectile dysfunction, unspecified; Translations: [Erectile dysfunction] Onset: 3 Chronic Other male genital disorders (2 sources) 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 Other male genital disorders (5 sources) Impotence of organic origin; Translations: [Male erectile dysfunction, unspecified] Chronic Other male genital disorders (20 sources) Erectile dysfunction co-occurrent and due to [...] syndrome] 10-17-2023 Chronic Other nervous system disorders (18 sources) Metabolic encephalopathy; Translations: [Metabolic encephalopathy] 03-09-2024 Chronic Other nervous system disorders (3 sources) Metabolic encephalopathy; Translations: [Metabolic encephalopathy] 03-10-2024 Chronic Other nervous system disorders (17 sources) Disorder of brain; Translations: [Encephalopathy, unspecified] 03-12-2024 Chronic Other nervous system disorders (2 sources) Encephalopathy, unspecified; Translations: [Encephalopathy, unspecified] 03-10-2024 Chronic Other non-traumatic joint disorders (2 sources) Derangement of left shoulder joint; Translations: [Other specific joint derangements of left shoulder, not elsewhere classified] 09-26-2023 Chronic Other non-traumatic joint disorders (2 sources) Pain in left shoulder; Translations: [Pain in joint, shoulder region] 09-26-2023 Episodic Other non-traumatic joint disorders (2 sources) Disorder of shoulder; Translations: [Other specified joint disorders, left shoulder] 09-26-2023 Episodic Other non-traumatic joint disorders (8 sources) Pain in right shoulder; Translations: [Right shoulder pain] 01-12-2025 Episodic Other nutritional; endocrine; and metabolic disorders (20 sources) Ketosis; Translations: [Other specified metabolic disorders] 09-19-2021 Chronic Other upper respiratory infections (5 sources) Acute maxillary sinusitis; Translations: [Acute maxillary sinusitis, unspecified] Episodic Peripheral and visceral atherosclerosis (2 sources) Peripheral vascular disease, unspecified; Translations: [Peripheral vascular disease, unspecified] Onset: 5 Chronic Residual codes; unclassified (20 sources) Edema, generalized; Translations: [Generalized edema] Onset: 2 11-13-2021 Episodic Residual codes; unclassified (20 sources) Peripheral edema; Translations: [Edema, unspecified] 10-14-2021 Episodic Residual codes; unclassified (20 sources) Left against medical advice; Translations: [Procedure and treatment not carried out because of patient's decision for other reasons] 06-03-2022 Episodic Residual codes; unclassified (1 source) Decreased libido Episodic Residual codes; unclassified (20 sources) Failed encounter 06-22-2024 Episodic Residual codes; unclassified (15 sources) Insomnia; Translations: [Insomnia, unspecified] 04-29-2024 Episodic Residual codes; unclassified (7 sources) Insomnia, unspecified; Translations: [Insomnia, unspecified] 09-02-2024 Episodic Residual codes; unclassified (2 sources) Nicotine-filled electronic cigarette user; Translations: [Tobacco use] Onset: 5 11-24-2024 Episodic Respiratory failure; insufficiency; arrest (adult) (20 sources) Acute respiratory failure; Translations: [Acute respiratory failure with hypoxia] 03-01-2024 Episodic Screening and history of mental health and substance abuse codes (4 sources) Personal history of other mental and behavioral disorders; Translations: [Personal history of nicotine dependence] Onset: 5 Episodic Substance-related disorders (20 sources) Smokes tobacco daily; Translations: [Tobacco use disorder] Onset: 4 Chronic Comment on above: 3 cigs daily; 1-2 Packs of cigaret josé daily; 1 Pack of cigarettes daily; Superficial injury; contusion (10 sources) Contusion of right lower leg, initial encounter; Translations: [Contusion of right lower extremity] 10-14-2024 Episodic Syncope (20 sources) Syncope; Translations: [Syncope and collapse] 08-13-2022 Episodic Unclassified (2 sources) Asymptomatic microscopic hematuria 08-29-2022 Viral infection (20 sources) Disease caused by 2019-nCoV; Translations: [COVID-19] 09-19-2021 Episodic Viral infection (6 sources) Disease caused by 2019-nCoV; Translations: [COVID-19] Onset: 5 Past or Other Problems Problem Classification Problem Date Documented Da te Episodic/Chronic Acute bronchitis (20 sources) Acute bronchitis; Translations: [Acute bronchitis, unspecified] Onset: 08-28-2024 03-09-2024 Episodic Acute myocardial infarction (20 sources) Myocardial infarction; Translations: [Subendocardial infarction, initial episode of care] Onset: 08-20-2023 Resolved: 12-03-2023 11-13-2021 Chronic Bacterial infection; unspecified site (1 source) Other specified bacterial agents as the cause of diseases classified elsewhere; Translations: [Other specified bacterial agents as the cause of diseases classified elsewhere] Onset: 08-28-2024 Episodic Coronary atherosclerosis and other heart disease (9 sources) Presence of coronary angioplasty implant and graft; Translations: [Percutaneous transluminal coronary angioplasty status] Onset: 08-20-2023 01-09-2023 Episodic Deficiency and other anemia (20 sources) Anemia; Translations: [Anemia, unspecified] Onset: 08-20-2023 10-01-2021 Episodic Fluid and electrolyte disorders (20 sources) Absolute hypovolemia; Translations: [Hypovolemia] Onset: 11-01-2024 09-19-2021 Episodic Malaise and fatigue (20 sources) Asthenia; Translations: [Weakness] Onset: 02-27-2019 06-13-2022 Episodic Other aftercare (4 sources) process server (current) use of insulin; Translations: [process server (current) use of insulin] Onset: 08-20-2023 Episodic Other circulatory disease (10 sources) History of cardiomyopathy; Translations: [Other postprocedural status] Resolved: 02-26-2023 Episodic Other circulatory disease (4 sources) H/O: angina pectoris; Translations: [Personal history of other diseases of circulatory system] Resolved: 02-26-2023 Episodic Other diseases of kidney and ureters (6 sources) Renal impairment; Translations: [Unspecified disorder of kidney and ureter] Onset: 08-20-2023 Resolved: 12-03-2023 12-03-2023 Episodic Other gastrointestinal disorders (8 sources) Constipation, unspecified; Translations: [Constipation, unspecified] Onset: 09-16-2024 10-17-2023 Episodic Other injuries and conditions due to external causes (6 sources) Hypothermia, initial encounter; Translations: [Hypothermia] Onset: 06-22-2024 06-22-2024 Episodic Other lower respiratory disease (10 sources) Hemoptysis; Translations: [Other hemoptysis] Onset: 08-28-2024 08-28-2024 Episodic Other lower respiratory disease (1 source) Shortness of breath; Translations: [Shortness of breath] Onset: 08-01-2024 Episodic Other nervous system disorders (1 source) Personal history of other diseases of the nervous system and sense organs; Translations: [History of retinal detachment] Onset: 10-01-2021 Episodic Other screening for suspected conditions (not mental disorders or infectious disease) (20 sources) Patient encounter status; Translations: [Encounter for screening for other disorder] Onset: 11-01-2024 Episodic Pneumonia (except that caused by tuberculosis or sexually transmitted disease) (20 sources) Infective pneumonia; Translations: [Pneumonia, unspecified organism] Onset: 08-17-2024 03-01-2024 Episodic Residual codes; unclassified (20 sources) Body mass index 20-24 - normal; Translations: [Body Mass Index between 19-24, adult] Onset: 12-03-2023 12-03-2023 Episodic Residual codes; unclassified (3 sources) Generalized edema; Translations: [GENERALIZED EDEMA] Onset: 10-25-2021 Episodic Residual codes; unclassified (2 sources) Tobacco use; Translations: [Tobacco use] Onset: 11-24-2024 Episodic Residual codes; unclassified (2 sources) Body mass index (BMI) 21.0-21.9, adult; Translations: [Body mass index (BMI) 21.0-21.9, adult] Onset: 06-11-2024 Episodic Spondylosis; intervertebral disc disorders; other back problems (5 sources) Low back pain; Translations: [Low back pain, unspecified] Onset: 02-27-2019 Episodic Unclassified (1 source) Onset: 11-24-2024 11-24-2024 Results Test Name Value Interpretation Reference Range Facility AV Fistula 04-01-2025 [place] [address] Ultrasound Report Signed Patient: Yoel Werner MR#: [id number] : 1985 Acct:[id number] Age/Sex: 40 / M ADM Date: 04/01/25 Loc: [facility] Room: Type: [facility] Attending Dr: Romain Mendoza MD Ordering Provider: Romain Mendoza MD Date of Service: 04/01/25 US/US AV Fistula: N18.6 - End stage renal disease Copies to: Romain Mendoza MD Left upper extremity fistula duplex evaluation INDICATIONS: Pain at the anastomotic site. FINDINGS: Left upper extremity: The left upper extremity AV fistula is patent. Flow velocities are ideal. No narrowing or thrombus is identified. The left axillary and subclavian veins are patent. US/US [facility] IMPRESSION: Normal study. Impression dictated by: Romain Mendoza MD,FACS,FSVS 04/01/2025 12:35 PM Dictation Location: [place] [address] Tech: Leslie Marinelli Transcribed By: PWS 04/01/25 1235 Dictated By: oRmain Mendoza MD 04/01/25 1234 Signed By: 04/01/25 1235 Normal [facility] Basophils Auto (Bld) [#/Vol] Ordered By: Denilson Gomez on 01-19-2025 Basophils (Bld) [#/Vol] Automated basophil count 0.0-0.2 [facility] Basophils [#/volume] in Bloo d by Automated countOrdered By: Denilson Gomez on 01-19-2025 Basophils (Bld) [#/Vol] 0.1 10*3/uL Normal 0.0-0.2 [facility] Comment on above: Result Comment: PERF ORMED BY: [place] [address] PATHOLOGIST SKILLED NURSING PROFESSIONAL YAMINI METCALF M.D. Performed By: #### C UBLD LACTIC, CMP #### [facility] [address] [place] [address] Basophils/100 WBC Auto (Bld) Ordered By: Denilson Gomez on 01-19-2025 Basophils/100 WBC (Bld) Automated basophil % . [facility] Basophils/100 leukocytes in Blood by Automated countOrdered By: Denilson Gomez on 01-19-2025 Basophils/100 WBC (Bld) 1.6 % Normal . [facility] Comment on above: Performed By: #### C UBLD LACTIC, CMP #### [facility] [address] [id number] [place] Carbon dioxide, total [Moles /volume] in Serum or PlasmaOrdered By: Denilson Gomez on 01-19-2025 CO2 [Moles/Vol] Carbon dioxide, tota l [Moles/volume] in Serum or Plasma High 21.0-31.0 [facility] CO2 [Moles/Vol] 32.2 mmol/L High 21.0-31.0 [place] Comment on above: Performed By: #### C MICHELLE LACTIC, CMP #### [facility] [address] [id number] [place] Chloride [Moles/volume] in S gretta or PlasmaOrdered By: Denilson Gomez on 01-19-2025 Chloride [Moles/Vol] Chloride [Moles/vol ume] in Serum or Plasma Low 98-107 [facility] Chloride [Moles/Vol] 95 mmol/L Low 98-107 [facility] Comment on above: Performed By: #### C MICHELLE LACTIC, CMP #### [facility] [address] [id number] [place] Cholesterol [Mass/volume] in Serum or PlasmaOrdered By: Denilson Gomez on 01-19-2025 Cholesterol [Mass/Vol] Cholesterol [Mass/volume] in Serum or Plasma Low 140-200 [facility] Comment on above: Chol less than 200 m g/dl low riskChol 201-239 mg/dl borderline riskChol 240 mg/dl and greater high risk Cholesterol [Mass/Vol] 99 mg/dL Low 140-200 [facility] Comment on above: Chol less than 200 m g/dl low riskChol 201-239 mg/dl borderline riskChol 240 mg/dl and greater high risk Result Comment: Chol less than 200 mg/dl low risk Chol 201-239 mg/dl borderline risk Chol 240 mg/dl and greater high risk Performed By: #### C MICHELLE LACTIC, CMP #### [facility] [address] [id number] [place] Cholesterol in HDL [Mass/vol ume] in Serum or PlasmaOrdered By: Denilson Gomez on 01-19-2025 Cholesterol in HDL [Mass/Vol] Serum or plasma high density lipoprotein (HDL) cholesterol measurement 23- [facility] Comment on above: HDL CHOL ATP-III CLA SSIFICATION Cardiovascular RiskHDL > or equal to 60 mg/dL LOWHDL < 40 mg/dL HIGH Cholesterol in HDL [Mass/Vol] 31 mg/dL Normal [facility] Comment on above: HDL CHOL ATP-III CLA SSIFICATION Cardiovascular RiskHDL > or equal to 60 mg/dL LOWHDL < 40 mg/dL HIGH Result Comment: HDL CHOL ATP-III CLASSIFICATION Cardiovascular Risk HDL > or equal to 60 mg/dL LOW HDL < 40 mg/dL HIGH Performed By: #### C UBLD, LACTIC, CMP #### [facility] [address] Cholesterol in LDL Calc [Mas s/Vol]Ordered By: Denilson Gomez on 01-19-2025 Cholesterol in LDL [Mass/Vol] Cholesterol in LDL [Mass/volume] in Serum or Plasma by calculation [facility] Comment on above: LDL ATP III CLASSIFI CATIONLDL less than 100 mg/dL OptimalLDL 100-129 mg/dL Near or above optimalLDL 130-159 mg/dL Borderline highLDL 160-189 mg/dL HighLDL greater than 189 mg/dL Very high Cholesterol in LDL [Mass/Vol] 60 mg/dL 0 [facility] Comment on above: LDL ATP III CLASSIFI CATIONLDL less than 100 mg/dL OptimalLDL 100-129 mg/dL Near or above optimalLDL 130-159 mg/dL Borderline highLDL 160-189 mg/dL HighLDL greater than 189 mg/dL Very high Cholesterol in VLDL Calc [Ma ss/Vol]Ordered By: Denilson Gomez on 01-19-2025 Cholesterol in VLDL [Mass/Vol] Cholesterol in VLDL [Mass/volume] in Serum or Plasma by calculation [facility] Cholesterol in VLDL [Mass/Vol] 8 mg/dL [facility] Coagulation Profileon 2024 aPTT Coag (Bld) [Time] 34.6 s Normal 25.1-36.5 [facility] Comment on above: Result Comment: A he matocrit value greater than 55% may lead to inaccurate results in coagulation testing. Patients having hematocrit values >55% require a special collection tube for coagulation studies. Please contact the laboratory at [phone] for redraw instructions. PERFORMED BY: [place] [address] PATHOLOGIST SKILLED NURSING PROFESSIONAL YAMINI METCALF M.D. Performed By: #### C UBLD, LACTIC, CMP #### [address] Complete Blood Count Auto Di ffon 01-19-2025 Mean Corpuscular HGB Conc 33.6 g/dL Normal 32.5-35.6 [facility] Comment on above: Performed By: #### C UBLD, LACTIC, CMP #### [address] NRBC% 0.0 /100{WBC} Normal 0-0.5 [facility] Comment on above: Performed By: #### C UBLD, LACTIC, CMP #### [address] Creatinineon 01-19-2025 Estimated GFR 12.503 mL/Min Normal [facility] Comment on above: Performed By: #### C UBLD, LACTIC, CMP #### [address] Creatinine [Mass/volume] in Serum or PlasmaOrdered By: Denilson Gomez on 01-19-2025 Creatinine [Mass/Vol] Creatinine [Mass/v olume] in Serum or Plasma High 0.70-1.30 [facility] Creatinine [Mass/Vol] 5.57 mg/dL High 0.70-1.30 [facility] Comment on above: Performed By: #### C UBLD, LACTIC, CMP #### [address] ECG 12 lead ECGon 01-19-2025 ECG 12 lead ECG [facility] Main [place] [address] [place] [address] Electrocardiograph Report Signed Patient: Yoel Werner MR#: [id number] : 1985 Acct:[id number] Age/Sex: 39 / M ADM Date: 01/19/25 Loc: PS Room: Type: [facility] Attending Dr: Denilson Gomez DO Ordering Provider: Denilson Gomez DO Date of Service: 01/19/2511/10/810 ECG/ECG 12 lead ECG: [facility] Copies to: Test Reason : [...] change was found Confirmed by Stephen Vivas ([id number]) on 01/19/2025 11:28:04 AM Referred By: Electronically Signed By: Stephen Vivas Transcribed By: MUS Signed By Stephen Vivas MD 01/19/25 1128 Normal [facility] Eosinophils Auto (Bld) [#/Vo l]Ordered By: Denilson Gomez on 01-19-2025 Eosinophils (Bld) [#/Vol] Automated eosinophil count 0.0-0.45 [facility] Eosinophils [#/volume] in Bl ood by Automated countOrdered By: Denilson Gomez on 01-19-2025 Eosinophils (Bld) [#/Vol] 0.3 10*3/uL Normal 0.0-0.45 [facility] Comment on above: Performed By: #### C UBLD, LACTIC, CMP #### [facility] [address] [place] [address] [place] Eosinophils/100 WBC Auto (Bl d)Ordered By: Denilson Gomez on 01-19-2025 Eosinophils/100 WBC (Bld) Automated eosinophil % . [facility] Eosinophils/100 leukocytes i n Blood by Automated countOrdered By: Denilson Gomez on 01-19-2025 Eosinophils/100 WBC (Bld) 4.6 % Normal . [facility] Comment on above: Performed By: #### C UBLD, LACTIC, CMP #### [facility] [address] [place] [address] Erythrocyte distribution wid th Auto (RBC) [Ratio]Ordered By: Denilson Gomez on 01-19-2025 Erythrocyte distribution width (RBC) [Ratio] Erythrocyte distribution width [Ratio] by Automated count 12.0-14.8 [facility] Erythrocyte distribution wid th [Ratio] by Automated countOrdered By: Denilson Gomez on 01-19-2025 Erythrocyte distribution width (RBC) [Ratio] 14.1 % Normal 12.0-14.8 [facility] Comment on above: Performed By: #### C UBLD LACTIC, CMP #### [address] Erythrocytes [#/volume] in B lood by Automated countOrdered By: Denilson Gomez on 01-19-2025 RBC (Bld) [#/Vol] 4.22 10*6/uL Normal 3.90-5.60 [facility] Comment on above: Performed By: #### C UBLD LACTIC, CMP #### [address] Hematocrit Auto (Bld) [Volum e fraction]Ordered By: Denilson Gomez on 01-19-2025 Hematocrit (Bld) [Volume fraction] Hematocrit [Volume Fraction] of Blood by Automated count Low 38.8-50.0 [facility] Hematocrit [Volume Fraction] of Blood by Automated countOrdered By: Denilson Gomez on 01-19-2025 Hematocrit (Bld) [Volume fraction] 32.6 % Low 38.8-50.0 [facility] Comment on above: Performed By: #### C UBLD LACTIC, CMP #### [address] Hemoglobin [Mass/volume] in BloodOrdered By: Denilson Gomez on 01-19-2025 Hemoglobin (Bld) [Mass/Vol] Hemoglobin [Mass/volume] in Blood Low 13.0-17.0 [facility] Hemoglobin (Bld) [Mass/Vol] 10.9 g/dL Low 13.0-17.0 [facility] Comment on above: Performed By: #### C UBLD, LACTIC, CMP #### [place] [address] [place] INR in Platelet poor plasma by Coagulation assayOrdered By: Denilson Gomez on 01-19-2025 INR Coag (PPP) [Relative time] INR in Platelet poor plasma by Coagulation assay [facility] Comment on above: INR Therapeutic Rang [...] mechanical heart valves: 3 - 4.5 INR Coag (PPP) [Relative time] 1.2 {INR} Normal [facility] Comment on above: INR Therapeutic Rang [...] with mechanical heart valves: 3 - 4.5 Result Comment: INR Therapeutic Range A) Pre- [...] 3 - 4.5 Performed By: #### C UBLD, LACTIC, CMP #### [address] Leukocytes [#/volume] correc celena for nucleated erythrocytes in Blood by Automated counOrdered By: Denilson Gomez on 01-19-2025 WBC corrected for nucl RBC Auto (Bld) [#/Vol] Leukocytes [#/volume] corrected for nucleated erythrocytes in Blood by Automated coun .1-.5 [facility] WBC corrected for nucl RBC Auto (Bld) [#/Vol] 5.4 10*3/uL .1-.5 [facility] Leukocytes [#/volume] in Blo od by Automated countOrdered By: Denilson Gomez on 01-19-2025 WBC (Bld) [#/Vol] 5.4 10*3/uL Normal 4.1-10.5 [facility] Comment on above: Performed By: #### C UBLD LACTIC, CMP #### [address] Lipid Panelon 01-19-2025 LDL Cholesterol,Calculated 60 mg/dL Normal 0-100 [facility] Comment on above: Result Comment: LDL ATP III CLASSIFICATION LDL less than 100 mg/dL Optimal LDL 100-129 mg/dL Near or above optimal LDL 130-159 mg/dL Borderline high LDL 160-189 mg/dL High LDL greater than 189 mg/dL Very high Performed By: #### C UBLD LACTIC, CMP #### [address] Triglyceride w/Reflex 41 mg/dL Normal 0-149 [facility] Comment on above: Result Comment: TRIG ATP III CLASSIFICATION TRIG less than 150 mg/dL Normal TRIG 150-199 mg/dL Borderline high TRIG 200-500 mg/dL High TRIG greater than 500 mg/dL Very high Standard traceable to the Center for Disease Conrtrol and Prevention (CDC) test method. Performed By: #### C UBLD LACTIC, CMP #### [address] VLDL CHOLESTEROL 8 mg/dL Normal [facility] Comment on above: Performed By: #### C UBLD LACTIC, CMP #### [address] Lymphocytes Auto (Bld) [#/Vo l]Ordered By: Denilson Gomez on 01-19-2025 Lymphocytes (Bld) [#/Vol] Lymphocytes [#/volume] in Blood by Automated count Low 1.00-4.8 [facility] Lymphocytes [#/volume] in Bl ood by Automated countOrdered By: Denilson Gomez on 01-19-2025 Lymphocytes (Bld) [#/Vol] 0.9 10*3/uL Low 1.00-4.8 [facility] Comment on above: Performed By: #### C UBLD, LACTIC, CMP #### [address] Lymphocytes/100 WBC Auto (Bl d)Ordered By: Denilson Gomez on 01-19-2025 Lymphocytes/100 WBC (Bld) Lymphocytes/100 leukocytes in Blood by Automated count . [facility] Lymphocytes/100 leukocytes i n Blood by Automated countOrdered By: Denilson Gomez on 01-19-2025 Lymphocytes/100 WBC (Bld) 16.2 % Normal . [facility] Comment on above: Performed By: #### C UBLD LACTIC, CMP #### [facility] [address] MCH Auto (RBC) [Entitic mass ]Ordered By: Denilson Gomez on 01-19-2025 MCH (RBC) [Entitic mass] MCH [Entitic mass] by Automated count Low 27.5-35.2 [facility] MCH [Entitic mass] by Automa celena countOrdered By: Denilson Gomez on 01-19-2025 MCH (RBC) [Entitic mass] 26.0 pg Low 27.5-35.2 [facility] Comment on above: Performed By: #### C UBLD LACTIC, CMP #### [facility] [address] [place] [address] MCHC Auto (RBC) [Mass/Vol]Or dered By: Denilson Gomez on 01-19-2025 MCHC (RBC) [Mass/Vol] MCHC [Mass/volume] by Automated count 32.5-35.6 [facility] MCHC (RBC) [Mass/Vol] 33.6 g/dL 32.5-35.6 [facility] MCV Auto (RBC) [Entitic vol] Ordered By: Denilson Gomez on 01-19-2025 MCV (RBC) [Entitic vol] MCV [Entitic vol ume] by Automated count Low 83.5-101 [facility] MCV [Entitic volume] by Auto mated countOrdered By: Denilson Gomez on 01-19-2025 MCV (RBC) [Entitic vol] 77.4 fL Low 83.5-101 [facility] Comment on above: Performed By: #### C UBLD, LACTIC, CMP #### [facility] [address] [place] [address] [place] Monocytes Auto (Bld) [#/Vol] Ordered By: Denilson Gomez on 01-19-2025 Monocytes (Bld) [#/Vol] Automated blood monocyte count 0.0-0.8 [facility] Monocytes [#/volume] in Bloo d by Automated countOrdered By: Denilson Gomez on 01-19-2025 Monocytes (Bld) [#/Vol] 0.5 10*3/uL Normal 0.0-0.8 [facility] Comment on above: Performed By: #### C UBLD, LACTIC, CMP #### [facility] [address] Monocytes/100 WBC Auto (Bld) Ordered By: Denilson Gomez on 01-19-2025 Monocytes/100 WBC (Bld) Automated monocyte % . [facility] Monocytes/100 leukocytes in Blood by Automated countOrdered By: Denilson Gomez on 01-19-2025 Monocytes/100 WBC (Bld) 9.3 % Normal . [facility] Comment on above: Performed By: #### C UBLD, LACTIC, CMP #### [facility] [address] Neutrophils Auto (Bld) [#/Vo l]Ordered By: Denilson Gomez on 01-19-2025 Neutrophils (Bld) [#/Vol] Neutrophils [#/volume] in Blood by Automated count 1.8-7.7 [facility] Neutrophils [#/volume] in Bl ood by Automated countOrdered By: Denilson Gomez on 01-19-2025 Neutrophils (Bld) [#/Vol] 3.7 10*3/uL Normal 1.8-7.7 [facility] Comment on above: Performed By: #### C UBLD, LACTIC, CMP #### [facility] [address] [place] [address] [place] Neutrophils/100 WBC Auto (Bl d)Ordered By: Denilson Gomez on 01-19-2025 Neutrophils/100 WBC (Bld) Automated neutrophil % . [facility] Neutrophils/100 leukocytes i n Blood by Automated countOrdered By: Denilson Gomez on 01-19-2025 Neutrophils/100 WBC (Bld) 68.3 % Normal . [facility] Comment on above: Performed By: #### C UBLD, LACTIC, CMP #### [facility] [address] [place] [address] No Panel InformationOrdered By: Denilson Gomez on 01-19-2025 Estimated GFR (CKD-EPI) 12.503 mL/Min [facility] Creatinine Clearance (Chem N/A [facility] Nucleated erythrocytes [Pres ence] in Blood by Automated countOrdered By: Denilson Gomez on 01-19-2025 Nucleated RBC Auto Ql (Bld) Nucleated erythrocytes [Presence] in Blood by Automated count 0-0.5 [facility] Nucleated RBC Auto Ql (Bld) 0.0 /100{WBC} 0-0.5 [facility] Platelet mean volume Auto (B ld) [Entitic vol]Ordered By: Denilson Gomez on 01-19-2025 Platelet mean volume (Bld) [Entitic vol] Platelet mean volume [Entitic volume] in Blood by Automated count 6.6-10.1 [facility] Platelet mean volume [Entiti c volume] in Blood by Automated countOrdered By: Denilson Gomez on 01-19-2025 Platelet mean volume (Bld) [Entitic vol] 8.1 fL Normal 6.6-10.1 [facility] Comment on above: Performed By: #### C UBLD, LACTIC, CMP #### [facility] [address] [place] [address] Platelets Auto (Bld) [#/Vol] Ordered By: Denilson Gomez on 01-19-2025 Platelets (Bld) [#/Vol] Platelets [#/vol ume] in Blood by Automated count Low 150-450 [facility] Platelets [#/volume] in Bloo d by Automated countOrdered By: Denilson Gomez on 01-19-2025 Platelets (Bld) [#/Vol] 104 10*3/uL Low 150-450 [facility] Comment on above: Performed By: #### C UBLD, LACTIC, CMP #### [facility] [address] [place] [address] Potassium [Moles/volume] in Serum or PlasmaOrdered By: Denilson Gomez on 01-19-2025 Potassium [Moles/Vol] Potassium [Moles/v olume] in Serum or Plasma 3.5-5.1 [facility] Potassium [Moles/Vol] 3.5 mmol/L Normal 3.5-5.1 [facility] Comment on above: Performed By: #### C CHRISTINELD LACTIC, CMP #### [facility] [address] Prothrombin time (PT)Ordered By: Denilson Gomez on 01-19-2025 PT Coag (PPP) [Time] Prothrombin time (PT) High 9.0- 12.9 [facility] Comment on above: A hematocrit value g reater than 55% may lead to inaccurate results in coagulation testing. Patients having hematocrit values >55% require a special collection tube for coagulation studies. Please contact the laboratory at [phone] for redraw instructions. PT Coag (PPP) [Time] 13.3 s High 9.0-12.9 [facility] Comment on above: A hematocrit value g reater than 55% may lead to inaccurate results in coagulation testing. Patients having hematocrit values >55% require a special collection tube for coagulation studies. Please contact the laboratory at [phone] for redraw instructions. Result Comment: A he matocrit value greater than 55% may lead to inaccurate results in coagulation testing. Patients having hematocrit values >55% require a special collection tube for coagulation studies. Please contact the laboratory at [phone] for redraw instructions. Performed By: #### C MIRELLA MARTINEZ, CMP #### [facility] [address] RBC Auto (Bld) [#/Vol]Ordere d By: Denilson Gomez on 01-19-2025 RBC (Bld) [#/Vol] Erythrocytes [#/volu me] in Blood by Automated count 3.90-5.60 [facility] Serum or plasma anion gap de terminationOrdered By: Denlison Gomez on 01-19-2025 Anion gap [Moles/Vol] Serum or plasma an ion gap determination 6.0-15.0 [facility] Anion gap [Moles/Vol] 12.3 mmol/L Normal 6.0-15.0 [facility] Comment on above: Performed By: #### C MIRELLA MARTINEZ, CMP #### [facility] [address] Serum or plasma total choles terol/high density lipoprotein (HDL) cholesterol mass ratOrdered By: Denilson Gomez on 01-19-2025 Cholesterol.total/Rosalind sterol in HDL [Mass ratio] Serum or plasma total cholesterol/high density lipoprotein (HDL) cholesterol mass rat <5.0 [facility] Cholesterol.total/Rosalind sterol in HDL [Mass ratio] 3.2 {ratio} Normal <5.0 [facility] Comment on above: Result Comment: PERF ORMED BY: [place] [address] PATHOLOGIST SKILLED NURSING PROFESSIONAL YAMINI METCALF M.D. Performed By: #### C MIRELLA MARTINEZ, CMP #### [address] Sodium [Moles/volume] in Ser um or PlasmaOrdered By: Denilson Gomez on 01-19-2025 Sodium [Moles/Vol] Sodium [Moles/volume ] in Serum or Plasma 136-145 [facility] Sodium [Moles/Vol] 136 mmol/L Normal 136-145 [facility] Comment on above: Performed By: #### C MIRELLA MARTINEZ, CMP #### [address] Triglyceride [Mass/volume] i n Serum or PlasmaOrdered By: Denilson Gomez on 01-19-2025 Triglyceride [Mass/Vol] Triglyceride [Mass/volume] in Serum or Plasma 0-149 [facility] Comment on above: TRIG ATP III CLASSIF ICATIONTRIG less than 150 mg/dL NormalTRIG 150-199 mg/dL Borderline highTRIG 200-500 mg/dL High TRIG greater than 500 mg/dL Very highStandard traceable to the Center for Disease Conrtrol and Prevention (CDC) test method. Triglyceride [Mass/Vol] 41 mg/dL 0-149 [facility] Comment on above: TRIG ATP III CLASSIF ICATIONTRIG less than 150 mg/dL NormalTRIG 150-199 mg/dL Borderline highTRIG 200-500 mg/dL High TRIG greater than 500 mg/dL Very highStandard traceable to the Center for Disease Conrtrol and Prevention (CDC) test method. Urea nitrogen [Mass/volume] in Serum or PlasmaOrdered By: Denilson Gomez on 01-19-2025 Urea nitrogen [Mass/Vol] Urea nitrogen [Mass/volume] in Serum or Plasma High 7-25 [facility] Urea nitrogen [Mass/Vol] 30 mg/dL High 7-25 [facility] Comment on above: Performed By: #### C UBLD, LACTIC, CMP #### [facility] [address] WBC Auto (Bld) [#/Vol]Ordere d By: Denilson Gomez on 01-19-2025 WBC (Bld) [#/Vol] Leukocytes [#/volume ] in Blood by Automated count 4.1-10.5 [facility] aPTT in Platelet poor plasma by Coagulation assayOrdered By: Denilson Gomez on 01-19-2025 aPTT Coag (PPP) [Time] Activated partial thromboplastin time (aPTT) in platelet poor plasma by coagulation a 25.1-36.5 [facility] Comment on above: A hematocrit value g reater than 55% may lead to inaccurate results in coagulation testing. Patients having hematocrit values >55% require a special collection tube for coagulation studies. Please contact the laboratory at [phone] for redraw instructions. aPTT Coag (PPP) [Time] 34.6 s 25.1-36.5 [facility] Comment on above: A hematocrit value g reater than 55% may lead to inaccurate results in coagulation testing. Patients having hematocrit values >55% require a special collection tube for coagulation studies. Please contact the laboratory at [phone] for redraw instructions. BASIC METABOLIC PANELon 05-0 Anion gap [Moles/Vol] 14 mmol/L Normal 7-20 [facility] on above: Performed By: #### L AB90 #### [facility] [address] [place] [address] Calcium [Mass/Vol] 8.9 mg/dL Normal 8.6-10.3 [facility] Comment on above: Performed By: #### L AB90 #### [facility] ([facility]) [address] [place] [address] Chloride [Moles/Vol] 95 mmol/L Low 98-107 [facility] Comment on above: Performed By: #### L AB90 #### [facility] ([facility]) [address] [place] [address] CO2 [Moles/Vol] 29 mmol/L Normal 21-[address] [facility] Comment on above: Performed By: #### L AB90 #### [facility] ([facility]) [address] [place] [address] Creatinine [Mass/Vol] 6.54 mg/dL High 0.70-1.30 [facility] Comment on above: Performed By: #### L AB90 #### [facility] ([facility]) [address] [place] [address] GLOMERULAR FILTRATION RATE ML/MIN/1.73 SQ M.PREDICTED 10.3 mL/min/1.73m*2 Low >60.0 [facility] Comment on above: Result Comment: [facility]???s estimated glomerular filtration rate (eGFR) will no longer include consideration of race in its calculation. The National Kidney Foundation???s eGFR Task Force developed new recommendations for the estimation of the glomerular filtration rate in the [place] They recommend immediate implementation of the new equation refit without the race variable in all laboratories because the calculation does not include race. In addition to not including race in the calculation and reporting, it included diversity in its development, and has acceptable performance characteristics and potential consequences that do not disproportionately affect any one group of individuals. Performed By: #### L AB90 #### [facility] ([facility]) [address] [place] [address] Glucose [Mass/Vol] 353 mg/dL High 70-100 [facility] Comment on above: Performed By: #### L AB90 #### [facility] ([facility] [address] [place] [address] Potassium [Moles/Vol] 4.1 mmol/L Normal 3.5-5.1 [facility] Comment on above: Performed By: #### L AB90 #### [facility] ([facility]) [address] [place] [address] Sodium [Moles/Vol] 134 mmol/L Low 136-145 [facility] Comment on above: Performed By: #### L [id number] #### [facility] (BEAKER) [address] [place] [address] Urea nitrogen [Mass/Vol] 37 mg/dL High 7-25 [facility] Comment on above: Performed By: #### L [id number] #### [facility] (BEAKER) [address] [place] [address] UREA NITROGEN/CREATININE (MASS RATIO) IN SER/PLAS 5.7 Normal [facility] Comment on above: Performed By: #### L [id number] #### [facility] (BEAKER) [address] [place] [address] CBCon 12-22-2024 Erythrocyte distribution width (RBC) [Ratio] 14.1 % Normal 11.5-15.0 [facility] Comment on above: Performed By: #### L [id number] #### [facility] (BEAKER) [address] [place] [address] ERYTHROCYTE MEAN CORPUSCULAR HEMOGLOBIN CONCENTRATION (G/DL) BY AUTOMATED 31.5 g/dL Low 32.0-35.0 [facility] Comment on above: Performed By: #### L [id number] #### [facility] (BEAKER) [address] [place] [address] Hematocrit (Bld) [Volume fraction] 37.2 % Low 39.0-50.0 [facility] Comment on above: Performed By: #### L [id number] #### [facility] (BEAKER) [address] [place] [address] Hemoglobin (Bld) [Mass/Vol] 11.7 g/dL Low 13.0-17.0 [facility] Comment on above: Performed By: #### L [id number] #### [facility] ([facility]) [address] [place] [address] MCH (RBC) [Entitic mass] 26.5 pg Low 27.0-33.0 [facility] Comment on above: Performed By: #### L [id number] #### [facility] ([facility]) [address] [address] MCV (RBC) [Entitic vol] 84.2 fL Normal 82.0-98.0 [facility] Comment on above: Performed By: #### L [id number] #### [facility] ([facility]) [address] [place] [address] PLATELETS (10*3/UL) IN BLOOD AUTOMATED COUNT 114 10*3/uL Low 150-400 [facility] Comment on above: Performed By: #### L [id number] #### [facility] ([facility]) [address] [place] [address] RBC (Bld) [#/Vol] 4.42 10*6/uL Normal 4.20-5.70 [facility] Comment on above: Performed By: #### L [id number] #### [facility] ([facility]) [address] [address] WBC (Bld) [#/Vol] 4.90 10*3/uL Normal 4.00-10.60 [facility] Comment on above: Performed By: #### L [id number] #### [facility] ([facility]) [address] [place] [address] HPon 12-22-2024 HP History Of Present Illness Yoel Werner is a 39 y.o. male presenting for cardiac catheterization for evaluation of mitral regurgitation. He is a 39 year old male referred for kidney transplant with ESRD due to DM on insulin (age 17), who began dialysis 02/2023 and currently dialysis 3 days a week (M/W/F) via Left upper arm AV fistula. Past medical history is significant for HTN, chronic bronchitis and ARF, anemia, acute metabolic encephalopathy, anxiety and depression, HLD, ischemic cardiomyopathy, MGUS, NSTEMI with severe three-vessel disease s/p stenting to the LAD and RCA between October of 2021 and January of 2023 (2 in left and three in right) after COVID. He does not have any history of DVT/PE/clotting events. He is on anticoagulation 81mg ASA and Plavix. Recent MURIEL showed severe mitral regurgitation. 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), Chest pain (06/18/2024), CHF (congestive heart failure) ([facility]) (08/20/2023), Chronic bronchitis, mucopurulent ([facility]) (06/18/2024), Cigarette nicotine dependence without complication (06/18/2024), COVID-19, Current every day smoker (08/20/2023), Diabetes mellitus ([facility]) (08/20/2023), Diabetic retinopathy ([facility]), Erectile dysfunction due to arterial insufficiency (06/18/2024), ESRD (end stage renal disease) on dialysis ([facility])(03/01/2023), EBENEZER (generalized anxiety disorder) (06/18/2024), GERD (gastroesophageal reflux disease), HCAP (healthcare-associated pneumonia) (06/18/2024), History of [place] (myocardial infarction) (08/20/2023), Hyperkalemia (06/18/2024), Hyperlipidemia (08/20/2023), Hypertensive emergency (03/17/2024), Hypoxemia (06/18/2024), Ischemic cardiomyopathy (03/17/2024), MGUS (monoclonal gammopathy of unknown significance) (06/18/2024), Mild episode of recurrent major depressive disorder (06/18/2024), Monoclonal (M) protein disease, 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 Surgical History He has a past surgical history that includes Retinal detachment surgery (Left, 09/18/2021); Cardiac catheterization (11/20/2021); Coronary stent placement (02/04/2023); AV fistula placement (Left, 09/17/2022); Knee surgery (2001); Vasectomy (2015); Coronary stent placement (11/20/2021); Vascular surgery (Left, 12/18/2022); Bone marrow biopsy; Cataract extraction (Left, 09/17/2023); and Cardiac catheterization (03/16/2024). Social History He reports that he quit smoking about 16 months ago. His smoking use included cigarettes. He started smoking about 21 years ago. He has a 20 pack-year smoking history. He has been exposed to tobacco smoke. He has never used smokeless tobacco. He reports that he does not currently use alcohol. He reports that he does not currently use drugs after having used the following drugs: Marijuana. Allergies Ticagrelor Medications Medications Prior to Admission Medication Sig Dispense Refill Last Dose albuterol 90 mcg/actuation inhaler 2 puffs. 12/21/2024 amLODIPine (Norvasc) 5 mg tablet Take 1 tablet (5 mg) by mouth in the morning. 30 tablet 11 12/22/2024 aspirin 81 mg chewable tablet 81 mg in the morning. 12/22/2024 atorvastatin (Lipitor) 80 mg tablet 80 mg in the morning. 12/22/2024 calcium acetate (Phoslo) 667 mg capsule Take 1,334 mg by mouth. 12/21/2024 carvedilol (Coreg) 25 mg tablet Take 25 mg by mouth with breakfast and with evening meal. 12/22/2024 clopidogrel (Plavix) 75 mg tablet Take 75 mg by mouth in the morning. 12/22/2024 famotidine (Pepcid) 20 mg tablet 20 mg in the morning. 12/22/2024 furosemide (Lasix) 40 mg tablet Take 80 mg by mouth two times daily. 12/22/2024 hydrALAZINE (Apresoline) 100 mg tablet Take 100 mg by mouth two times daily. 12/22/2024 hydrOXYzine HCL (Atarax) 25 mg tablet Take 25 mg by mouth in the morning. 12/22/2024 insulin glargine (Lantus) 100 unit/mL (3 mL) injection pen Inject 20 Units under the skin in the morning. 12/22/2024 insulin lispro (HumaLOG) 100 unit/mL injection pen Inject 4 times a day before meals & bedtime. [id number]=3whmjm; 170-189=3units; 190-209=4units; 210-229=6units; 230-249=8units; 250-269=9units; 270-289=10units; 290-300=12units; >300=14units & notify provider 12/21/2024 isosorbide mononitrate ER (Imdur) 60 mg 24 hr tablet Take 60 mg by mouth two times daily. 12/22/2024 lisinopril 20 mg tablet 20 mg in the morning. 12/22/2024 loratadine (Claritin) 10 mg tablet Take 10 mg (more content not included)... Normal [facility] NURSNOTEon 12-22-2024 NURSNOTE Patient refusing to wait any longer for heart cath. States he is hungry and annoyed and he wants to have his cath at [facility] with his regular doctor. Dr Lou in to speak to patient and states its fine if patient wants to work with his regular crisis nurse. Patient leaving now. Normal [facility] Alanine aminotransferase [En zymatic activity/volume] in Serum or PlasmaOrdered By: Robyn Jose on 12-17-2024 ALT [Catalytic activity/Vol] Alanine aminotransferase [Enzymatic activity/volume] in Serum or Plasma [facility] Albumin [Mass/volume] in Ser um or Plasma by Bromocresol green (BCG) dye binding methoOrdered By: Robyn Jose on 12-17-2024 Albumin BCG dye [Mass/Vol] Albumin [Mass/volume] in Serum or Plasma by Bromocresol green (BCG) dye binding metho 3.5-5.7 [facility] Alkaline phosphatase [Enzyma tic activity/volume] in Serum or PlasmaOrdered By: Robyn Jose on 12-17-2024 ALP [Catalytic activity/Vol] Alkaline phosphatase [Enzymatic activity/volume] in Serum or Plasma 34-104 [facility] Aspartate aminotransferase [ Enzymatic activity/volume] in Serum or PlasmaOrdered By: Robyn Jose on 12-17-2024 AST [Catalytic activity/Vol] Aspartate aminotransferase [Enzymatic activity/volume] in Serum or Plasma 13-39 [facility] Basophils Auto (Bld) [#/Vol] Ordered By: Robyn Jose on 12-17-2024 Basophils (Bld) [#/Vol] Automated basophil count 0.0-0.2 [facility] Basophils/100 WBC Auto (Bld) Ordered By: Robyn Jose on 12-17-2024 Basophils/100 WBC (Bld) Automated basophil % . [facility] Bilirubin.total [Mass/volume ] in Serum or PlasmaOrdered By: Robyn Jose on 12-17-2024 Bilirubin [Mass/Vol] Bilirubin.total [Mass/volume] in Serum or Plasma 0.3-1.0 [facility] Calcium [Mass/volume] in Ser um or PlasmaOrdered By: Robyn Jose on 12-17-2024 Calcium [Mass/Vol] Calcium [Mass/volume ] in Serum or Plasma 8.6-10.3 [facility] Carbon dioxide, total [Moles /volume] in Serum or PlasmaOrdered By: Robyn Jose on 12-17-2024 CO2 [Moles/Vol] Carbon dioxide, tota l [Moles/volume] in Serum or Plasma 21.0-31.0 [facility] Chloride [Moles/volume] in S gretta or PlasmaOrdered By: Robyn Jose on 12-17-2024 Chloride [Moles/Vol] Chloride [Moles/vol ume] in Serum or Plasma Low 98-107 [facility] Complete Blood Count Auto Di ffon 12-17-2024 Basophils (Bld) [#/Vol] 0.2 10*3/uL Normal 0.0-0.2 [facility] Comment on above: Result Comment: PERF ORMED BY: [place] [address] PATHOLOGIST SKILLED NURSING PROFESSIONAL CRISTHIAN HUFF M.D. Performed By: #### B ROLL HANDLER, CMP, CBC, HS TROP #### [address] Basophils/100 WBC (Bld) 2.4 % Normal . [facility] Comment on above: Performed By: #### B ROLL HANDLER, CMP, CBC, HS TROP #### [address] Eosinophils (Bld) [#/Vol] 0.3 10*3/uL Normal 0.0-0.45 [facility] Comment on above: Performed By: #### B ROLL HANDLER, CMP, CBC, HS TROP #### [address] Eosinophils/100 WBC (Bld) 4.2 % Normal . [facility] Comment on above: Performed By: #### B ROLL HANDLER, CMP, CBC, HS TROP #### [address] Erythrocyte distribution width (RBC) [Ratio] 14.4 % Normal 12.0-14.8 [facility] Comment on above: Performed By: #### B ROLL HANDLER, CMP, CBC, HS TROP #### [address] Hematocrit (Bld) [Volume fraction] 35.2 % Low 38.8-50.0 [facility] Comment on above: Performed By: #### B ROLL HANDLER, CMP, CBC, HS TROP #### [address] Hemoglobin (Bld) [Mass/Vol] 11.7 g/dL Low 13.0-17.0 [facility] Comment on above: Performed By: #### B ROLL HANDLER, CMP, CBC, HS TROP #### [place] [address] Lymphocytes (Bld) [#/Vol] 0.7 10*3/uL Low 1.00-4.8 [facility] Comment on above: Performed By: #### B ROLL HANDLER, CMP, CBC, HS TROP #### [address] Lymphocytes/100 WBC (Bld) 10.8 % Normal . [facility] Comment on above: Performed By: #### B ROLL HANDLER, CMP, CBC, HS TROP #### [address] MCH (RBC) [Entitic mass] 27.0 pg Low 27.5-35.2 [facility] Comment on above: Performed By: #### B ROLL HANDLER, CMP, CBC, HS TROP #### [address] MCV (RBC) [Entitic vol] 80.8 fL Low 83.5-101 [facility] Comment on above: Performed By: #### B ROLL HANDLER, CMP, CBC, HS TROP #### [address] Mean Corpuscular HGB Conc 33.4 g/dL Normal 32.5-35.6 [facility] Comment on above: Performed By: #### B ROLL HANDLER, CMP, CBC, HS TROP #### [address] Monocytes (Bld) [#/Vol] 0.4 10*3/uL Normal 0.0-0.8 [facility] Comment on above: Performed By: #### B ROLL HANDLER, CMP, CBC, HS TROP #### [address] Monocytes/100 WBC (Bld) 20.87 % High 0.00-20.00 [facility] Comment on above: Result Comment: For adults in ED, MDW > 20.0 may be associated with a higher risk of sepsis during the first 12 hrs of hospital admission Performed By: #### B ROLL HANDLER, CMP, CBC, HS TROP #### [address] Monocytes/100 WBC (Bld) 6.4 % Normal . [facility] Comment on above: Performed By: #### B ROLL HANDLER, CMP, CBC, HS TROP #### [address] Neutrophils (Bld) [#/Vol] 5.2 10*3/uL Normal 1.8-7.7 [facility] Comment on above: Performed By: #### B ROLL HANDLER, CMP, CBC, HS TROP #### [address] Neutrophils/100 WBC (Bld) 76.2 % Normal . [facility] Comment on above: Performed By: #### B ROLL HANDLER, CMP, CBC, HS TROP #### [address] NRBC% 0.0 /100{WBC} Normal 0-0.5 [facility] Comment on above: Performed By: #### B ROLL HANDLER, CMP, CBC, HS TROP #### [address] Platelet mean volume (Bld) [Entitic vol] 7.8 fL Normal 6.6-10.1 [facility] Comment on above: Performed By: #### B ROLL HANDLER, CMP, CBC, HS TROP #### [place] [address] [place] Platelets (Bld) [#/Vol] 124 10*3/uL Low 150-450 [facility] Comment on above: Performed By: #### B ROLL HANDLER, CMP, CBC, HS TROP #### [place] [address] [place] RBC (Bld) [#/Vol] 4.35 10*6/uL Normal 3.90-5.60 [facility] Comment on above: Performed By: #### B ROLL HANDLER, CMP, CBC, HS TROP #### [place] [address] [place] WBC (Bld) [#/Vol] 6.9 10*3/uL Normal 4.1-10.5 [facility] Comment on above: Performed By: #### B ROLL HANDLER, CMP, CBC, HS TROP #### [address] Comprehensive Metabolic Pane elvin 12-17-2024 Albumin [Mass/Vol] 4.0 g/dL Normal 3.5-5.7 [facility] Comment on above: Performed By: #### B ROLL HANDLER, CMP, CBC, HS TROP #### [address] Albumin/Globulin [Mass ratio] 1.3 {ratio} Normal [facility] Comment on above: Performed By: #### B ROLL HANDLER, CMP, CBC, HS TROP #### [address] ALP [Catalytic activity/Vol] 55 U/L Normal 34-104 [facility] Comment on above: Performed By: #### B ROLL HANDLER, CMP, CBC, HS TROP #### [address] ALT [Catalytic activity/Vol] 11 U/L Normal 7-52 [facility] Comment on above: Performed By: #### B ROLL HANDLER, CMP, CBC, HS TROP #### [address] Anion gap [Moles/Vol] 12.3 mmol/L Normal 6.0-15.0 [facility] Comment on above: Performed By: #### B ROLL HANDLER, CMP, CBC, HS TROP #### [address] AST [Catalytic activity/Vol] 15 U/L Normal 13-39 [facility] Comment on above: Performed By: #### B ROLL HANDLER, CMP, CBC, HS TROP #### [address] Bilirubin [Mass/Vol] 0.7 mg/dL Normal 0.3-1.0 [facility] Comment on above: Performed By: #### B ROLL HANDLER, CMP, CBC, HS TROP #### [address] Calcium [Mass/Vol] 9.4 mg/dL Normal 8.6-10.3 [facility] Comment on above: Performed By: #### B ROLL HANDLER, CMP, CBC, HS TROP #### [address] Chloride [Moles/Vol] 97 mmol/L Low 98-107 [facility] Comment on above: Performed By: #### B ROLL HANDLER, CMP, CBC, HS TROP #### [address] CO2 [Moles/Vol] 30.7 mmol/L Normal 21.0-31.0 [facility] Comment on above: Performed By: #### B ROLL HANDLER, CMP, CBC, HS TROP #### [address] Creatinine [Mass/Vol] 4.96 mg/dL High 0.70-1.30 [facility] Comment on above: Performed By: #### B ROLL HANDLER, CMP, CBC, HS TROP #### [address] Creatinine Clr Calc Pharmacy 22.06 Normal [facility] Comment on above: Result Comment: PERF ORMED BY: [place] [address] PATHOLOGIST SKILLED NURSING PROFESSIONAL CRISTHIAN HUFF M.D. Performed By: #### B ROLL HANDLER, CMP, CBC, HS TROP #### [address] Estimated GFR 14.370 mL/Min Normal [facility] Comment on above: Performed By: #### B ROLL HANDLER, CMP, CBC, HS TROP #### [address] Globulin (S) [Mass/Vol] 3.0 g/dL Normal [facility] Comment on above: Performed By: #### B ROLL HANDLER, CMP, CBC, HS TROP #### [address] Glucose [Mass/Vol] 128 mg/dL High 70-100 [facility] Comment on above: Result Comment: [place] Glucose Reference Range is dependent on time and content of last meal. Glucose of more than 200 mg/dL in a nonstressed, ambulatory subject supports the diagnosis of Diabetes Mellitus. ADA recommended reference range Performed By: #### B ROLL HANDLER, CMP, CBC, HS TROP #### [facility] [address] Potassium [Moles/Vol] 4.0 mmol/L Normal 3.5-5.1 [facility] Comment on above: Performed By: #### B ROLL HANDLER, CMP, CBC, HS TROP #### [facility] [address] [place] [id number] [place] Protein [Mass/Vol] 7.0 g/dL Normal 6.4-8.9 [facility] Comment on above: Performed By: #### B ROLL HANDLER, CMP, CBC, HS TROP #### [facility] [address] [place] [id number] [place] Sodium [Moles/Vol] 136 mmol/L Normal 136-145 [facility] Comment on above: Performed By: #### B ROLL HANDLER, CMP, CBC, HS TROP #### [facility] [address] [place] [id number] [place] Urea nitrogen [Mass/Vol] 24 mg/dL Normal 7-25 [facility] Comment on above: Performed By: #### B ROLL HANDLER, CMP, CBC, HS TROP #### [facility] [address] [place] [id number] [facility] Creatinine [Mass/volume] in Serum or PlasmaOrdered By: Robyn Jose on 12-17-2024 Creatinine [Mass/Vol] Creatinine [Mass/v olume] in Serum or Plasma High 0.70-1.30 [facility] Eosinophils Auto (Bld) [#/Vo l]Ordered By: Robyn Jose on 12-17-2024 Eosinophils (Bld) [#/Vol] Automated eosinophil count 0.0-0.45 [facility] Eosinophils/100 WBC Auto (Bl d)Ordered By: Robyn Jose on 12-17-2024 Eosinophils/100 WBC (Bld) Automated eosinophil % . [facility] Erythrocyte distribution wid th Auto (RBC) [Ratio]Ordered By: Robyn Jose on 12-17-2024 Erythrocyte distribution width (RBC) [Ratio] Erythrocyte distribution width [Ratio] by Automated count 12.0-14.8 [facility] Globulin Calc (S) [Mass/Vol] Ordered By: Robyn Jose on 12-17-2024 Globulin (S) [Mass/Vol] Serum globulin measurement by calculation (mass/volume) [facility] Glucose [Mass/volume] in Ser um or PlasmaOrdered By: Robyn Jose on 12-17-2024 Glucose [Mass/Vol] Glucose [Mass/volume ] in Serum or Plasma High 70-100 [facility] Comment on above: ADA recommended refe rence rangeRandom Glucose Reference Range is dependent on time and content of last meal. Glucose of more than 200 mg/dL in a nonstressed, ambulatory subject supports the diagnosis of Diabetes Mellitus. Hematocrit Auto (Bld) [Volum e fraction]Ordered By: Robyn Jose on 12-17-2024 Hematocrit (Bld) [Volume fraction] Hematocrit [Volume Fraction] of Blood by Automated count Low 38.8-50.0 [facility] Hemoglobin [Mass/volume] in BloodOrdered By: Robyn Jose on 12-17-2024 Hemoglobin (Bld) [Mass/Vol] Hemoglobin [Mass/volume] in Blood Low 13.0-17.0 [facility] Leukocytes [#/volume] correc celena for nucleated erythrocytes in Blood by Automated counOrdered By: Robyn Jose on 12-17-2024 WBC corrected for nucl RBC Auto (Bld) [#/Vol] Leukocytes [#/volume] corrected for nucleated erythrocytes in Blood by Automated coun 4.1-10.5 [facility] Lymphocytes Auto (Bld) [#/Vo l]Ordered By: Robyn Jose on 12-17-2024 Lymphocytes (Bld) [#/Vol] Lymphocytes [#/volume] in Blood by Automated count Low 1.00-4.8 [facility] Lymphocytes/100 WBC Auto (Bl d)Ordered By: Robyn Jose on 12-17-2024 Lymphocytes/100 WBC (Bld) Lymphocytes/100 leukocytes in Blood by Automated count . [facility] MCH Auto (RBC) [Entitic mass ]Ordered By: Robyn Jose on 12-17-2024 MCH (RBC) [Entitic mass] MCH [Entitic mass] by Automated count Low 27.5-35.2 [facility] MCHC Auto (RBC) [Mass/Vol]Or dered By: Robyn Jose on 12-17-2024 MCHC (RBC) [Mass/Vol] MCHC [Mass/volume] by Automated count 32.5-35.6 [facility] MCV Auto (RBC) [Entitic vol] Ordered By: Robyn Jose on 12-17-2024 MCV (RBC) [Entitic vol] MCV [Entitic vol ume] by Automated count Low 83.5-101 [facility] Monocyte distribution width [Entitic volume] in Blood by AutomatedOrdered By: Robyn Jose on 12-17-2024 Monocyte distribution width Auto (Bld) [Entitic vol] Monocyte distribution width [Entitic volume] in Blood by Automated High 0.00-20.00 [facility] Comment on above: For adults in ED, MD W > 20.0 may be associated with a higher risk of sepsis during the first 12 hrs of hospital admission Monocytes Auto (Bld) [#/Vol] Ordered By: Robyn Jose on 12-17-2024 Monocytes (Bld) [#/Vol] Automated blood monocyte count 0.0-0.8 [facility] Monocytes/100 WBC Auto (Bld) Ordered By: Robyn Jose on 12-17-2024 Monocytes/100 WBC (Bld) Automated monocyte % . [facility] Neutrophils Auto (Bld) [#/Vo l]Ordered By: Robyn Jose on 12-17-2024 Neutrophils (Bld) [#/Vol] Neutrophils [#/volume] in Blood by Automated count 1.8-7.7 [facility] Neutrophils/100 WBC Auto (Bl d)Ordered By: Robyn Jose on 12-17-2024 Neutrophils/100 WBC (Bld) Automated neutrophil % . [facility] No Panel InformationOrdered By: Robyn Jose on 12-17-2024 Estimated GFR (CKD-EPI) 14.370 mL/Min [facility] Creatinine Clearance (Chem 22.06 [facility] Nucleated erythrocytes [Pres ence] in Blood by Automated countOrdered By: Robyn Jose on 12-17-2024 Nucleated RBC Auto Ql (Bld) Nucleated erythrocytes [Presence] in Blood by Automated count 0-0.5 [facility] Platelet mean volume Auto (B ld) [Entitic vol]Ordered By: Robyn Jose on 12-17-2024 Platelet mean volume (Bld) [Entitic vol] Platelet mean volume [Entitic volume] in Blood by Automated count 6.6-10.1 [facility] Platelets Auto (Bld) [#/Vol] Ordered By: Robyn Jose on 12-17-2024 Platelets (Bld) [#/Vol] Platelets [#/vol ume] in Blood by Automated count Low 150-450 [facility] Potassium [Moles/volume] in Serum or PlasmaOrdered By: Robyn Jose on 12-17-2024 Potassium [Moles/Vol] Potassium [Moles/v olume] in Serum or Plasma 3.5-5.1 [facility] Protein [Mass/volume] in Ser um or PlasmaOrdered By: Robyn Jose on 12-17-2024 Protein [Mass/Vol] Protein [Mass/volume ] in Serum or Plasma 6.4-8.9 [facility] RBC Auto (Bld) [#/Vol]Ordere d By: Robyn Jose on 12-17-2024 RBC (Bld) [#/Vol] Erythrocytes [#/volu me] in Blood by Automated count 3.90-5.60 [facility] Serum or plasma albumin/glob ulin mass ratioOrdered By: Robyn Jose on 12-17-2024 Albumin/Globulin [Mass ratio] Serum or plasma albumin/globulin mass ratio [facility] Serum or plasma anion gap de terminationOrdered By: Robyn Jose on 12-17-2024 Anion gap [Moles/Vol] Serum or plasma an ion gap determination 6.0-15.0 [facility] Sodium [Moles/volume] in Ser um or PlasmaOrdered By: Robyn Jose on 12-17-2024 Sodium [Moles/Vol] Sodium [Moles/volume ] in Serum or Plasma 136-145 [facility] Urea nitrogen [Mass/volume] in Serum or PlasmaOrdered By: Robyn Jose on 12-17-2024 Urea nitrogen [Mass/Vol] Urea nitrogen [Mass/volume] in Serum or Plasma 03-12 [facility] WBC Auto (Bld) [#/Vol]Ordere d By: Robyn Jose on 12-17-2024 WBC (Bld) [#/Vol] Leukocytes [#/volume ] in Blood by Automated count 4.1-10.5 [facility] XR chest 2V*on 12-17-2024 XR chest 2V* [facility] Main [address] [address] XRay Report Signed Patient: Yoel Werner MR#: [id number] : 1985 Acct:[id number] Age/Sex: 39 / M ADM Date: 12/16/24 Loc: ER Room: Type: [facility] ER Attending Dr: Copies to: Robyn Jose DO Ordering Provider: Robyn Jose DO Date of Service: 12/17/24 XR/XR chest 2V*: Shortness of Breath/Dyspnea PA AND LATERAL CHEST: CLINICAL HISTORY: Increased shortness of breath and intermittent chest pain COMPARISON: 11/01/[address] 09/17/2024 Minor interstitial change and subtle groundglass density are noted bilaterally. There might also be minor atelectasis or scarring at the left base partially obscuring the hemidiaphragm. There is pleural effusion or pneumothorax. The cardiac, hilar and mediastinal silhouettes are within normal limits. There is no vascular congestion. The visualized bony thorax is intact. XR/XR chest 2V* IMPRESSION: MILD PARENCHYMAL CHANGES, DESCRIBED. SIMILAR FINDINGS WERE NOTED ON PATIENT'S COMPARISON CT. Impression dictated by: Lesa Coronado M.D. 12/17/2024 7:21 AM Dictation Location: [place] [address] Transcribed By: BRENNAN 12/17/24 0721 Dictated By: Lesa Coronado MD 12/17/24 0719 Signed By: 12/17/24 0721 Normal [facility] ECG 12 lead ECGon 12-16-2024 ECG 12 lead ECG [facility] [place] [address] Electrocardiograph Report Signed Patient: Yoel Werner MR#: [id number] : 1985 Acct:[id number] Age/Sex: 39 / M ADM Date: 12/16/24 Loc: ER Room: Type: [facility] ER Attending Dr: Ordering Provider: Robyn Jose DO Date of Service: 12/16/24 ECG/ECG 12 lead ECG: Shortness of Breath/Dyspnea Copies to: Test Reason : Blood Pressure : 189/88 mmHG Vent. Rate : 78 BPM Atrial Rate : 78 BPM P-R Int : 174 ms QRS Dur : 92 ms QT Int : 414 ms P-R-T Axes : 53 -2 77 degrees QTcB Int : 471 ms Normal sinus rhythm Possible Left atrial enlargement Nonspecific T wave abnormality Prolonged QT Abnormal ECG When compared with ECG of 01-Nov-2024 20:55, Questionable change in QRS axis Confirmed by ROBYN JOSE DO ([id number]) on 12/17/2024 1:51:46 AM Referred By: Electronically Signed By: ROBYN JOSE DO Transcribed By: MUS Signed By Robyn Jose DO 0151 Normal [facility] Letter (Out)on 12-02-2024 Letter (Out) [id number] DeisijoseYoel 1985 [facility] Provider Department Center 12/02/2024 None-None [facility] AUTH [facility] Family History Problem Relation Age of Onset Pancreatic cancer Mother Diabetes Mother Liver disease Mother Hypertension Father Irritable bowel syndrome Father Stroke Father Coronary artery disease Brother 55 Lung cancer Paternal Grandmother Coronary artery disease Paternal Grandfather Family Status - Relation Status Age at Mother Father Alive Brother Paternal Grandmother Paternal Grandfather Normal [facility] Follow-Upon 11-19-2024 Follow-Up [id number] RashimarquisjoseYoel 1985 [facility] Provider Department Center 11/19/2024 [facility] CARD [facility] Family History Problem Relation Age of Onset Pancreatic cancer Mother Diabetes Mother Liver disease Mother Hypertension Father Irritable bowel syndrome Father Stroke Father Coronary artery disease Brother 55 Lung cancer Paternal Grandmother Coronary artery disease Paternal Grandfather Family Status - Relation Status Age at Mother Father Alive Brother Paternal Grandmother Paternal Grandfather Level of Service:77567 [place] OFFICE/OUTPATIENT ESTABLISHED HIGH MDM 40 MIN (GC) [facility] 36on 11-09-2024 36 TC spoke to patient about recent lab results today showing that the patient has high levels of nicotine/tobacco in his system. Patient reports using a vape daily for stress over the last few weeks. TC informed patient that while he is using he is not a candidate for transplant. Patient stated that he will work to quit again and understands that until he quits for 30-60 days and can pass a negative nicotine screen he will not be able to resume workup. TC informed patient that if it takes him over a year he will need to be re-referred with updated insurance cards. Patients stated understanding and asked if he should still attend his cardiology visit with Dr Lou on 11/19/24 as they are planning to crack his chest . TC advised patient to still attend this appointment and appropriate follow-up with cardiology due to recent abnormal cardiac testing. Patient stated understanding and is planning to attend. TC informed cardiac coordinator that his cardiology visit is no longer a part of transplant evaluation and she agreed that he still needs to be seen for follow-up after abnormal MURIEL because patient will likely need some type of intervention, but did not confirm that patient will need to have his chest cracked open. [facility] [place] 11-03-2024 ANES ---- -------- Attestation signed by Sandra Fierro MD at 11/03/2024 10:09 AM Sandra Fierro MD, MPH, [facility], [facility], [facility] Interventional Cardiology Pager Email: [email or web address] -------- Patient: Yoel Werner Procedure Information Date/Time: 11/03/24999 Procedure: TRANSESOPHAGEAL ECHO (MURIEL) Location: [facility] Vascular Lab Clinical information reviewed: Allergies Meds Physical Exam Airway Mallampati: III Cardiovascular Rhythm: regular Rate: normal (+) murmur Dental Pulmonary (-) decreased breath sounds Abdominal (-) obese Anesthesia Plan ASA 3 other (Conscious Sedation ) intravenous induction Anesthetic plan and risks discussed with patient. Use of blood products discussed with patient who consented to blood products. Plan discussed with attending. Additional Equipment Requests Normal [facility] HPon 11-03-2024 ---- -------- Attestation signed by Sandra Fierro MD at 11/03/2024 10:08 AM By using the attestations below, the signing clinician agrees that I have read and verify that the documentation has been personally reviewed by me and ensure that the documentation accurately reflects the encounter. GC: I personally saw this patient on the day of the encounter, performed the renner portion(s) of the service and participated in the management and confirm the resident's documentation. Please note there may be an additional personal documentation from me. Additional Comments: Sandra Fierro MD, MPH, [facility], [facility], [facility] Interventional Cardiology Pager Email: [email or web address] -------- History Of Present Illness Yoel Werner is a 39 y.o. male with hx of DM, ESRD on dialysis, HTN, severe MR on TTE presenting for MURIEL to evaluate MR. 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), Chest pain (06/18/2024), CHF (congestive heart failure) ([facility]) (08/20/2023), Chronic bronchitis, mucopurulent ([facility]) (06/18/2024), Cigarette nicotine dependence without complication (06/18/2024), COVID-19, Current every day smoker (08/20/2023), Diabetes mellitus ([facility]) (08/20/2023), Diabetic retinopathy ([facility]), Erectile dysfunction due to arterial insufficiency (06/18/2024), ESRD (end stage renal disease) on dialysis ([facility])(03/01/2023), EBENEZER (generalized anxiety disorder) (06/18/2024), GERD (gastroesophageal reflux disease), HCAP (healthcare-associated pneumonia) (06/18/2024), History of [place] (myocardial infarction) (08/20/2023), Hyperkalemia (06/18/2024), Hyperlipidemia (08/20/2023), Hypertensive emergency (03/17/2024), Hypoxemia (06/18/2024), Ischemic cardiomyopathy (03/17/2024), MGUS (monoclonal gammopathy of unknown significance) (06/18/2024), Mild episode of recurrent major depressive disorder (06/18/2024), Monoclonal (M) protein disease, 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 Surgical History He has a past surgical history that includes Retinal detachment surgery (Left, 09/18/2021); Cardiac catheterization (11/20/2021); Coronary stent placement (02/04/2023); AV fistula placement (Left, 09/17/2022); Knee surgery (2001); Vasectomy (2015); Coronary stent placement (11/20/2021); Vascular surgery (Left, 12/18/2022); Bone marrow biopsy; Cataract extraction (Left, 09/17/2023); and Cardiac catheterization (03/16/2024). Social History He reports that he quit smoking about 14 months ago. His smoking use included cigarettes. He started smoking about 21 years ago. He has a 20 pack-year smoking history. He has never used smokeless tobacco. He reports that he does not currently use alcohol. He reports that he does not currently use drugs after having used the following drugs: Marijuana. Allergies Ticagrelor Medications (Not in a hospital admission) Transthoracic echo (TTE) complete 09/15/2024 [id number] Final Review of Systems Negative except as mentioned. Physical Exam Vitals reviewed. Constitutional: Appearance: Normal appearance. HENT: Head: Normocephalic and atraumatic. Eyes: General: Right eye: No discharge. Left eye: No discharge. Cardiovascular: Rate and Rhythm: Normal rate and regular rhythm. Heart sounds: Murmur heard. Pulmonary: Effort: Pulmonary effort is normal. No respiratory distress. Breath sounds: Normal breath sounds. Neurological: General: No focal deficit present. Mental Status: He is alert and oriented to person, place, and time. Psychiatric: Mood and Affect: Mood normal. Behavior: Behavior normal. Last Recorded Vitals Blood pressure 165/79, pulse 73, resp. rate 15, SpO2 100%. Assessment/Plan Active Problems: There are no active Hospital Problems. 1- Severe MR on TTE Proceed with MURIEL for evaluation of Jorje Delgadillo MD PGY-5 [employer] [facility] Pager # [phone] Normal [facility] Labon 11-03-2024 Lab [id number] Yoel Werner 1985 M Date Provider Department Center 11/03/2024 2245-[facility] OPD LAB RESOURCE [facility] [place] [facility] Family History Problem Relation Age of Onset Pancreatic cancer Mother Diabetes Mother Liver disease Mother Hypertension Father Irritable bowel syndrome Father Stroke Father Coronary artery disease Brother 55 Lung cancer Paternal Grandmother Coronary artery disease Paternal Grandfather Family Status - Relation Status Age at Mother Father Alive Brother Paternal Grandmother Paternal Grandfather Normal [facility] NICOTINE AND METABOLITE, NEREIDA NTITATIVEon 11-03-2024 COTININE, QUANT 285 ng/mL Normal [facility] Comment on above: Performed By: #### L [id number] #### [facility] (BEAKER) [address] [place] [address] NICOTINE QUANT 25 ng/mL Normal [facility] Comment on above: Result Comment: INTE RPRETIVE INFORMATION: Nicotine and Metabolites, Serum or Plasma, Quantitative Methodology: Quantitative Liquid Chromatography-Tandem Mass Spectrometry Positive cutoff: 5 ng/mL For medical purposes only; not valid for forensic use. This test is designed to evaluate recent use of nicotine-containing products. Passive and active exposure cannot be discriminated definitively, although a cutoff of 10 ng/mL cotinine is frequently used for surgery qualification purposes. For smoking cessation programs or compliance testing, the absence of expected drug(s) and/or drug metabolite(s) may indicate non-compliance, inappropriate timing of specimen collection relative to drug administration, poor drug absorption, or limitations of testing. This test cannot distinguish between use of tobacco and purified nicotine products. The concentration value must be greater than or equal to the cutoff to be reported as positive. This test was developed and its performance characteristics determined by [facility]. It has not been cleared or approved by the [place] Food and Drug Administration. This test was performed in a CLIA certified laboratory and is intended for clinical purposes. Performed By: [facility] [address] [place] [id number] Business Office Manager: Gage Daley MD, PhD CLIA Number: [id number] Performed By: #### L [id number] #### [facility] (BEAKER) [address] [place] [address] NURSNOTEon 11-03-2024 NURSNOTE Bedside swallow stud y completed and passed. RN educated pt on d/c instructions. This included: site care, limited physical activity, resume normal diet, future appointments, medications, and moderate sedation instructions. RN educated pt on when to notify physician and when to go to the hospital. RN encouraged pt to voice any questions or concerns, and answered any questions or concerns if pt verbalized. Pt was wheeled off of unit with all of belongings. Normal [facility] PANEL REACTIVE ANTIBODYon HOLD SPECIMEN Hold for add-ons. Normal [facility] Comment on above: Order Comment: To be drawn as needed for donor crossmatch purposes Result Comment: Auto resulted. Performed By: #### L [id number] #### [facility] TISSUE TYPING (HISTOTRAC) [address] [place] [address] [place] POCT GLUCOSE METER UNSOLICIT ED RESULTSon 11-03-2024 Glucose [Mass/Vol] 110 mg/dL High 70-105 [facility] Comment on above: Order Comment: Waive d Testing in the ED is performed under the ED CLIA certificate #[id number]. Result Comment: rcha gol Performed By: #### L [id number] #### [facility] ([facility]) [address] [place] [address] SINGLE ANTIGEN CLASS Ion AB SCREEN COMMENTS No Specificites Found Normal [facility] Comment on above: Performed By: #### L [id number] #### [facility] ([facility]) [address] [place] [address] Performed By: #### L [id number] #### [facility] ([facility]) [address] [place] [address] CLASS I TESTED DATE [id number] Normal [facility] Comment on above: Performed By: #### L [id number] #### [facility] ([facility]) [address] [place] [address] CPRA 0 Normal [facility] Comment on above: Performed By: #### L AB90 #### [facility] ([facility]) [address] [place] [address] Performed By: #### L [id number] #### [facility] (BEAKER) [address] [place] [address] SIGNED BY Signed by Govind tovar [facility]) VALERIANO([facility]), Fiction And Nonfiction Prose Writer Transplant Immunology [facility] Comment on above: Result Comment: Clas s I Antigen Microbeads Performed By: #### L [id number] #### [facility] ([facility]AKER) [address] [place] [address] Performed By: #### L [id number] #### [facility] (BEAKER) [address] [place] [address] SINGLE ANTIGEN CLASS 1 TEST METHOD Class I Single Antigen Normal [facility] Comment on above: Performed By: #### L [id number] #### [facility] ([facility]ER) [address] [place] [address] SINGLE ANTIGEN CLASS IIon CLASS II TESTED DATE [id number] [facility] Comment on above: Performed By: #### L [id number] #### [facility] ([facility] [address] [place] [address] SINGLE ANTIGEN CLASS 2 TEST METHOD Class II Single Antigen Normal [facility] Comment on above: Result Comment: Clas s II Antigen Microbeads Performed By: #### L [id number] #### [facility] ([facility] [address] [place] [address] Basic Metabolic Panelon - Anion gap [Moles/Vol] 23.2 mmol/L High 6.0-15.0 [facility] Comment on above: Performed By: #### C UBLD, LACTIC, CMP #### [facility] [address] [place] [address] [place] Calcium [Mass/Vol] 9.0 mg/dL Normal 8.6-10.3 [facility] Comment on above: Performed By: #### C UBLD, LACTIC, CMP #### [facility] [address] [place] [id number] [place] Chloride [Moles/Vol] 99 mmol/L Normal 98-107 [facility] Comment on above: Performed By: #### C UBLD, LACTIC, CMP #### [address] CO2 [Moles/Vol] 18.8 mmol/L Low 21.0-31.0 [facility] Comment on above: Performed By: #### C UBLD, LACTIC, CMP #### [address] Creatinine [Mass/Vol] 10.70 mg/dL Significan t change up 0.70-1.30 [facility] Comment on above: Performed By: #### C UBLD, LACTIC, CMP #### [place] [address] [place] Creatinine Clr Calc Pharmacy 10.13 Normal [facility] Comment on above: Result Comment: PERF ORMED BY: [place] [address] PATHOLOGIST SKILLED NURSING PROFESSIONAL CRISTHIAN HUFF M.D. Performed By: #### C UBLD, LACTIC, CMP #### [address] Estimated GFR 5.712 mL/Min Normal [facility] Comment on above: Performed By: #### C UBLD, LACTIC, CMP #### [address] Glucose [Mass/Vol] 69 mg/dL Low 70-100 [facility] Comment on above: Result Comment: [place] Glucose Reference Range is dependent on time and content of last meal. Glucose of more than 200 mg/dL in a nonstressed, ambulatory subject supports the diagnosis of Diabetes Mellitus. ADA recommended reference range Performed By: #### C UBLD, LACTIC, CMP #### [address] Potassium [Moles/Vol] 6.0 mmol/L High 3.5-5.1 [facility] Comment on above: Performed By: #### C UBLD, LACTIC, CMP #### [place] [address] [place] Sodium [Moles/Vol] 135 mmol/L Low 136-145 [facility] Comment on above: Performed By: #### C UBLD, LACTIC, CMP #### [facility] [address] Urea nitrogen [Mass/Vol] 100 mg/dL High 7-25 [facility] Comment on above: Performed By: #### C UBLD, LACTIC, CMP #### [facility] [address] abdomen pelvis wo conon 0 11-02-2024 CT abdomen pelvis wo con [facility] Main [place] [address] [place] [address] CT Scan Report Signed Patient: Yoel Werner MR#: [id number] : 1985 Acct:[id number] Age/Sex: 39 / M ADM Date: 11/01/24 Loc: Room: [address] [place] [address] Type: ADM INOo Attending Dr: Law Cnao MD Copies to: DO Law Craig MD Ordering Provider: Hector Mann DO Date of Service: 11/01/24 CT/CT abdomen pelvis wo con: f CT ABDOMEN AND PELVIS WITHOUT INTRAVENOUS CONTRAST: CLINICAL HISTORY: Nausea vomiting diarrhea fatigue and weakness headache. COMPARISON: CT abdomen and pelvis 09/15/2024 TECHNIQUE: Spiral images were obtained through the abdomen and pelvis without intravenous contrast. This CT exam was performed using one or more following dose reduction techniques: Automated exposure control, adjustment of the mA and/or kV according to patient size, or use of iterative reconstruction technique. FINDINGS: Lung Bases: [Mild bibasilar scarring.] Organs:Suboptimal evaluation due to lack of IV contrast. Liver gallbladder spleen pancreas and adrenal glands appear unremarkable.[ GI: Stomach is grossly unremarkable. Small bowel appears nondilated. No acute colonic abnormality.[ Pelvis:[Urinary bladder prostate gland appear unremarkable.] Peritoneum/Retroperitone um:No free air. No lymphadenopathy. No free fluid.[ Abd wall/Bones:Body wall anasarca. Osseous structures demonstrate no acute process.[ CT/CT abdomen pelvis wo con IMPRESSION: No acute findings. Body wall anasarca. Impression dictated by: Yoel Mart Jr., D.O.11/02/2024 8:47 AM Dictation Location: RADIO-PC-22 Transcribed By: BRENNAN 11/02/24846 Dictated By: Yoel Mart Jr, DO 11/02/24827 Signed By: 11/02/24846 Normal [facility] CT head/brain wo conon 11-02 CT head/brain wo con [facility] [place] [address] CT Scan Report Signed Patient: Yoel Werner MR#: [id number] : 1985 Acct:[id number] Age/Sex: 39 / M ADM Date: 11/01/24 Loc: Room: [address] [place] [address] Type: ADM INOo Attending Dr: Law Cano MD Copies to: DO Law Craig MD Ordering Provider: Hector Mann DO Date of Service: 11/01/24 CT/CT head/brain wo con: f CT BRAIN WITHOUT CONTRAST: CLINICAL HISTORY: Headache nausea vomiting diarrhea fatigue weakness. COMPARISON: CT brain 08/12/2022 TECHNIQUE: Contiguous axial unenhanced images were obtained through the brain. This CT exam was performed using one or more following dose reduction techniques: Automated exposure control, adjustment of the mA and/or kV according to patient size, or use of iterative reconstruction technique. FINDINGS: There is no evidence of midline shift, intra or extra-axial fluid collection, hemorrhage or CT evidence of stroke. Posterior fossa appears unremarkable. Visualized intraorbital contents demonstrate no acute findings. Visualized paranasal sinuses are clear. The surrounding soft tissues are normal. CT/CT head/brain wo con IMPRESSION: NO ACUTE INTRACRANIAL ABNORMALITY. Impression dictated by: Yoel Mart Jr., D.O.11/02/2024 8:28 AM Dictation Location: RADIO-PC-22 Transcribed By: BRENNAN 11/02/24827 Dictated By: Yoel Mart Jr, DO 11/02/24826 Signed By: 11/02/24827 Normal [facility] Calcium [Mass/volume] in Ser um or PlasmaOrdered By: Judd Jacobs on 11-02-2024 Calcium [Mass/Vol] Calcium [Mass/volume ] in Serum or Plasma 8.6-10.3 [facility] Carbon dioxide, total [Moles /volume] in Serum or PlasmaOrdered By: Judd Jacobs on 11-02-2024 CO2 [Moles/Vol] Carbon dioxide, tota l [Moles/volume] in Serum or Plasma Low 21.0-31.0 [facility] Chloride [Moles/volume] in S gretta or PlasmaOrdered By: Judd Jacobs on 11-02-2024 Chloride [Moles/Vol] Chloride [Moles/vol ume] in Serum or Plasma 98-107 [facility] Creatinine [Mass/volume] in Serum or PlasmaOrdered By: Judd Jacobs on 11-02-2024 Creatinine [Mass/Vol] Creatinine [Mass/v olume] in Serum or Plasma Significant change up 0.70-1.30 [facility] Comment on above: Delta: 9.89 on 11/01 Glucose Glucometer (BldC) [M ass/Vol]Ordered By: Law Cano on 11-02-2024 Glucose [Mass/Vol] Capillary blood gluc ose measurement by glucometer (mass/volume) [facility] Comment on above: Random Glucose Refer ence Range is dependent on time and content of last meal. Glucose of more than 200 mg/dL in a nonstressed, ambulatory subject supports the diagnosis of Diabetes Mellitus. Glucose Poct Glucometerson 0 11-02-2024 Commemt1 Glu2: Cleaned Meter Normal [facility] Comment on above: Result Comment: PERF ORMED BY: [place] [address] PATHOLOGIST SKILLED NURSING PROFESSIONAL CRISTHIAN HUFF M.D. Performed By: #### C UBLD, LACTIC, CMP #### [address] Glucose [Mass/Vol] 192 mg/dL Normal [facility] Comment on above: Result Comment: [place] Glucose Reference Range is dependent on time and content of last meal. Glucose of more than 200 mg/dL in a nonstressed, ambulatory subject supports the diagnosis of Diabetes Mellitus. Performed By: #### C UBLD LACTIC, CMP #### [facility] [address] Glucose [Mass/Vol] 202 mg/dL Normal [facility] Comment on above: Result Comment: [place] om Glucose Reference Range is dependent on time and content of last meal. Glucose of more than 200 mg/dL in a nonstressed, ambulatory subject supports the diagnosis of Diabetes Mellitus. PERFORMED BY: [place] [address] PATHOLOGIST SKILLED NURSING PROFESSIONAL CRISTHIAN HUFF M.D. Performed By: #### C UBSIMÓN LACTIC, CMP #### [address] Glucose [Mass/Vol] 64 mg/dL Normal [facility] Comment on above: Result Comment: [place] om Glucose Reference Range is dependent on time and content of last meal. Glucose of more than 200 mg/dL in a nonstressed, ambulatory subject supports the diagnosis of Diabetes Mellitus. PERFORMED BY: [place] [address] PATHOLOGIST SKILLED NURSING PROFESSIONAL CRISTHIAN HUFF M.D. Performed By: #### C UBSIMÓN LACTIC, CMP #### [address] Glucose [Mass/volume] in Ser um or PlasmaOrdered By: Judd Jacobs on 11-02-2024 Glucose [Mass/Vol] Glucose [Mass/volume ] in Serum or Plasma Low 70-100 [facility] Comment on above: ADA recommended refe rence rangeRandom Glucose Reference Range is dependent on time and content of last meal. Glucose of more than 200 mg/dL in a nonstressed, ambulatory subject supports the diagnosis of Diabetes Mellitus. No Panel InformationOrdered By: Law Cano on 11-02-2024 Bedside Glucose Comment Glu2: cleaned meter [facility] No Panel InformationOrdered By: Judd Jacobs on 11-02-2024 Estimated GFR (CKD-EPI) 5.712 mL/Min [facility] Creatinine Clearance (Chem 10.13 [facility] Potassium [Moles/volume] in Serum or PlasmaOrdered By: Judd Jacobs on 11-02-2024 Potassium [Moles/Vol] Potassium [Moles/v olume] in Serum or Plasma High 3.5-5.1 [facility] Serum or plasma anion gap de terminationOrdered By: Judd Jacobs on 11-02-2024 Anion gap [Moles/Vol] Serum or plasma an ion gap determination High 6.0-15.0 [facility] Sodium [Moles/volume] in Ser um or PlasmaOrdered By: Judd Jacobs on 11-02-2024 Sodium [Moles/Vol] Sodium [Moles/volume ] in Serum or Plasma Low 136-145 [facility] Urea nitrogen [Mass/volume] in Serum or PlasmaOrdered By: Judd Jacobs on 11-02-2024 Urea nitrogen [Mass/Vol] Urea nitrogen [Mass/volume] in Serum or Plasma High 7-25 [facility] X-ray reportOrdered By: Dexter Mart on 11-02-2024 Study report [facility] [place] [address] XRay Report Signed Patient: Yoel Werner MR#: [id number] : 1985 Acct:[id number] Age/Sex: 39 / M ADM Date: 5 Loc: Room: [address] [place] [address] Type: ADM INOo Attending Dr: Law Cano MD Copies to: DO Law Craig MD~ Ordering Provider: Hector Mann DO Date of Service: 11/01/24 XR/XR chest 1V portable: Nausea/Vomiting/Diarrhea SINGLE VIEW CHEST CLINICAL HISTORY: Weakness breast dialysis on Saturday. Headache. COMPARISON: Chest 09/15/2024 FINDINGS: Heart normal in size. No lung consolidation pneumothorax pleural effusion or free air. XR/XR chest 1V portable IMPRESSION: NO ACUTE FINDINGS Impression dictated by: Yoel Mart Jr. D.OEsa11/02/2024 8:28 AM Dictation Location: [place] [address] Transcribed By: BRENNAN 11/02/24827 Dictated By: Yoel Mart Jr, DO 11/02/24827 Signed By: 11/02/2428 [facility] XR chest 1V portableon 11-02 XR chest 1V portable [facility] [place] [address] [place] [id number] XRay Report Signed Patient: Yoel Werner MR#: [id number] : 1985 Acct:[id number] Age/Sex: 39 / M ADM Date: 11/01/24 Loc: Room: [address] [place] [address] Type: ADM INOo Attending Dr: Law Cano MD Copies to: DO Law Craig MD Ordering Provider: Hector Mann DO Date of Service: 11/01/24 XR/XR chest 1V portable: Nausea/Vomiting/Diarrhea SINGLE VIEW CHEST CLINICAL HISTORY: Weakness breast dialysis on Saturday. Headache. COMPARISON: Chest 09/15/2024 FINDINGS: Heart normal in size. No lung consolidation pneumothorax pleural effusion or free air. XR/XR chest 1V portable IMPRESSION: NO ACUTE FINDINGS Impression dictated by: Yoel Mart Jr., D.O.11/02/2024 8:28 AM Dictation Location: [place] [address] Transcribed By: BRENNAN 11/02/24827 Dictated By: Yoel Mart Jr, DO 11/02/24827 Signed By: 11/02/24827 Normal [facility] Alanine aminotransferase [En zymatic activity/volume] in Serum or PlasmaOrdered By: Hector Mann on 11-01-2024 ALT [Catalytic activity/Vol] Alanine aminotransferase [Enzymatic activity/volume] in Serum or Plasma [facility] Albumin [Mass/volume] in Ser um or Plasma by Bromocresol green (BCG) dye binding methoOrdered By: Hector Mann on 11-01-2024 Albumin BCG dye [Mass/Vol] Albumin [Mass/volume] in Serum or Plasma by Bromocresol green (BCG) dye binding metho 3.5-5.7 [facility] Alkaline phosphatase [Enzyma tic activity/volume] in Serum or PlasmaOrdered By: Hector Mann on 11-01-2024 ALP [Catalytic activity/Vol] Alkaline phosphatase [Enzymatic activity/volume] in Serum or Plasma 34-104 [facility] Appearance of UrineOrdered B y: Hector Mann on 11-01-2024 Appearance (U) Urine appearance Clear [facility] Aspartate aminotransferase [ Enzymatic activity/volume] in Serum or PlasmaOrdered By: Hector Mann on 11-01-2024 AST [Catalytic activity/Vol] Aspartate aminotransferase [Enzymatic activity/volume] in Serum or Plasma 13-39 [facility] B-Type Natriuretic Peptideon 11-01-2024 Natriuretic peptide B (Bld) [Mass/Vol] 1961.0 pg/mL High 5-100 [facility] Comment on above: Result Comment: PERF ORMED BY: [place] [address] PATHOLOGIST SKILLED NURSING PROFESSIONAL CRISTHIAN HUFF M.D. Performed By: #### C UBLD, LACTIC, CMP #### [address] Bacteria [Presence] in Urine by AutomatedOrdered By: Hector Mann on 11-01-2024 Bacteria Auto Ql (U) Bacteria [Presence] in Urine by Automated None Seen [facility] Basophils Auto (Bld) [#/Vol] Ordered By: Hector Mann on 11-01-2024 Basophils (Bld) [#/Vol] Automated basophil count 0.0-0.2 [facility] Basophils/100 WBC Auto (Bld) Ordered By: Hector Mann on 11-01-2024 Basophils/100 WBC (Bld) Automated basophil % . [facility] Bilirubin Test strip Ql (U)O rdered By: Hetcor Mann on 11-01-2024 Bilirubin Ql (U) Bilirubin.total [Presence] in Urine by Test strip Negative [facility] Bilirubin.total [Mass/volume ] in Serum or PlasmaOrdered By: Hector Mann on 11-01-2024 Bilirubin [Mass/Vol] Bilirubin.total [Mass/volume] in Serum or Plasma 0.3-1.0 [facility] BioFire Not Detectedon 11-01 BioFire Not Detected Not detected Normal Not Detecte [facility] Comment on above: Result Comment: This is a duplicate RP2.1 COVID (PCR) result to be used for statistical tracking purpose only. PERFORMED BY: [place] [phone] PATHOLOGIST SKILLED NURSING PROFESSIONAL CRISTHIAN HUFF M.D. Performed By: #### C UBLD, LACTIC, CMP #### [address] Blood Cultureon 11-01-2024 Bacteria identified Cx Nom (Bld) NO GROWTH 5 DAYS PERFORMED BY: [place] [phone] PATHOLOGIST SKILLED NURSING PROFESSIONAL CRISTHIAN HUFF M.D. Normal [facility] Comment on above: Performed By: #### G LULS #### Point of Care testing , Bacteria identified Cx Nom (Bld) NO GROWTH 5 DAYS PERFORMED BY: [place] [phone] PATHOLOGIST SKILLED NURSING PROFESSIONAL CRISTHIAN HUFF M.D. Normal [facility] Comment on above: Performed By: #### G LULS #### Point of Care testing , COVID-19 Detected/Not Detect edOrdered By: Hector Mann on 11-01-2024 SARS-CoV-2 (COVID-19) RNA HAO+non-probe Ql (Nph) Not detected Not Detecte [facility] Comment on above: This is a duplicate RP2.1 COVID (PCR) result to be used for statistical tracking purpose only. Calcium [Mass/volume] in Ser um or PlasmaOrdered By: Hector Mann on 11-01-2024 Calcium [Mass/Vol] Calcium [Mass/volume ] in Serum or Plasma 8.6-10.3 [facility] Carbon dioxide, total [Moles /volume] in Serum or PlasmaOrdered By: Hector Mann on 11-01-2024 CO2 [Moles/Vol] Carbon dioxide, tota l [Moles/volume] in Serum or Plasma Low 21.0-31.0 [facility] Chloride [Moles/volume] in S gretta or PlasmaOrdered By: Hector Mann on 11-01-2024 Chloride [Moles/Vol] Chloride [Moles/vol ume] in Serum or Plasma Low 98-107 [facility] Color Auto (U)Ordered By: Selma Mann on 11-01-2024 Color (U) Color of Urine by Auto Yellow Fi [facility] Complete Blood Count Auto Di ffon 11-01-2024 Basophils (Bld) [#/Vol] 0.1 10*3/uL Normal 0.0-0.2 [facility] Comment on above: Result Comment: PERF ORMED BY: [place] [address] PATHOLOGIST SKILLED NURSING PROFESSIONAL CRISTHIAN HUFF M.D. Performed By: #### C UBLD, LACTIC, CMP #### [address] Basophils/100 WBC (Bld) 2.1 % Normal . T julianna [facility] Comment on above: Performed By: #### C UBLD, LACTIC, CMP #### [address] Eosinophils (Bld) [#/Vol] 0.3 10*3/uL Normal 0.0-0.45 [facility] Comment on above: Performed By: #### C UBLD, LACTIC, CMP #### [address] Eosinophils/100 WBC (Bld) 5.7 % Normal . [facility] Comment on above: Performed By: #### C UBLD, LACTIC, CMP #### [address] Erythrocyte distribution width (RBC) [Ratio] 15.4 % High 12.0-14.8 [facility] Comment on above: Performed By: #### C UBLD, LACTIC, CMP #### [address] Hematocrit (Bld) [Volume fraction] 31.0 % Low 38.8-50.0 [facility] Comment on above: Performed By: #### C UBLD, LACTIC, CMP #### [address] Hemoglobin (Bld) [Mass/Vol] 10.5 g/dL Low 13.0-17.0 [facility] Comment on above: Performed By: #### C UBLD, LACTIC, CMP #### [address] Lymphocytes (Bld) [#/Vol] 0.8 10*3/uL Low 1.00-4.8 [facility] Comment on above: Performed By: #### C UBLD, LACTIC, CMP #### [address] Lymphocytes/100 WBC (Bld) 13.5 % Normal . [facility] Comment on above: Performed By: #### C UBLD, LACTIC, CMP #### [address] MCH (RBC) [Entitic mass] 28.6 pg Normal 27.5-35.2 [facility] Comment on above: Performed By: #### C UBLD, LACTIC, CMP #### [address] MCV (RBC) [Entitic vol] 84.3 fL Normal 83.5-101 [facility] Comment on above: Performed By: #### C UBLD, LACTIC, CMP #### [address] Mean Corpuscular HGB Conc 33.9 g/dL Normal 32.5-35.6 [facility] Comment on above: Performed By: #### C UBLD, LACTIC, CMP #### [address] Monocytes (Bld) [#/Vol] 0.4 10*3/uL Normal 0.0-0.8 [facility] Comment on above: Performed By: #### C UBLD, LACTIC, CMP #### [address] Monocytes/100 WBC (Bld) 17.06 % Normal 0.00-20.00 [facility] Comment on above: Performed By: #### C UBLD, LACTIC, CMP #### [address] Monocytes/100 WBC (Bld) 6.3 % Normal . [facility] Comment on above: Performed By: #### C UBLD, LACTIC, CMP #### [address] Neutrophils (Bld) [#/Vol] 4.3 10*3/uL Normal 1.8-7.7 [facility] Comment on above: Performed By: #### C UBLD, LACTIC, CMP #### [address] Neutrophils/100 WBC (Bld) 72.4 % Normal . [facility] Comment on above: Performed By: #### C UBLD, LACTIC, CMP #### [address] NRBC% 0.0 /100{WBC} Normal 0-0.5 [facility] Comment on above: Performed By: #### C UBLD, LACTIC, CMP #### [address] Platelet mean volume (Bld) [Entitic vol] 7.3 fL Normal 6.6-10.1 [facility] Comment on above: Performed By: #### C UBLD, LACTIC, CMP #### [address] Platelets (Bld) [#/Vol] 142 10*3/uL Low 150-450 [facility] Comment on above: Performed By: #### C UBLD, LACTIC, CMP #### [address] RBC (Bld) [#/Vol] 3.68 10*6/uL Low 3.90-5.60 [facility] Comment on above: Performed By: #### C UBLD, LACTIC, CMP #### [address] WBC (Bld) [#/Vol] 5.9 10*3/uL Normal 4.1-10.5 [facility] Comment on above: Performed By: #### C UBLD, LACTIC, CMP #### [address] Comprehensive Metabolic Pane elvin 11-01-2024 Albumin [Mass/Vol] 3.9 g/dL Normal 3.5-5.7 [facility] Comment on above: Performed By: #### C UBLD, LACTIC, CMP #### [address] Albumin/Globulin [Mass ratio] 1.3 {ratio} Normal [facility] Comment on above: Performed By: #### C UBLD, LACTIC, CMP #### [address] ALP [Catalytic activity/Vol] 55 U/L Normal 34-104 [facility] Comment on above: Performed By: #### C UBLD, LACTIC, CMP #### [address] ALT [Catalytic activity/Vol] 21 U/L Normal 7-52 [facility] Comment on above: Performed By: #### C UBLD, LACTIC, CMP #### [address] Anion gap [Moles/Vol] 22.9 mmol/L High 6.0-15.0 [facility] Comment on above: Performed By: #### C UBLD, LACTIC, CMP #### [address] AST [Catalytic activity/Vol] 24 U/L Normal 13-39 [facility] Comment on above: Performed By: #### C UBLD, LACTIC, CMP #### [address] Bilirubin [Mass/Vol] 0.7 mg/dL Normal 0.3-1.0 [facility] Comment on above: Performed By: #### C UBLD, LACTIC, CMP #### [address] Calcium [Mass/Vol] 8.9 mg/dL Normal 8.6-10.3 [facility] Comment on above: Performed By: #### C UBLD, LACTIC, CMP #### [address] Chloride [Moles/Vol] 97 mmol/L Low 98-107 [facility] Comment on above: Performed By: #### C UBLD, LACTIC, CMP #### [address] CO2 [Moles/Vol] 19.5 mmol/L Low 21.0-31.0 [facility] Comment on above: Performed By: #### C UBLD, LACTIC, CMP #### [address] Creatinine [Mass/Vol] 9.89 mg/dL High 0.70-1.30 [facility] Comment on above: Performed By: #### C UBLD, LACTIC, CMP #### [address] Creatinine Clr Calc Pharmacy 10.86 Normal [facility] Comment on above: Performed By: #### C UBLD, LACTIC, CMP #### [address] Estimated GFR 6.278 mL/Min Normal [facility] Comment on above: Performed By: #### C UBLD, LACTIC, CMP #### [address] Globulin (S) [Mass/Vol] 3.0 g/dL Normal [facility] Comment on above: Performed By: #### C UBLD, LACTIC, CMP #### [address] Glucose [Mass/Vol] 127 mg/dL High 70-100 [facility] Comment on above: Result Comment: [place] Glucose Reference Range is dependent on time and content of last meal. Glucose of more than 200 mg/dL in a nonstressed, ambulatory subject supports the diagnosis of Diabetes Mellitus. ADA recommended reference range Performed By: #### C UBLD, LACTIC, CMP #### [facility] [address] [place] [address] [place] Potassium [Moles/Vol] 6.4 mmol/L Off scale high 3.5-5.1 [facility] Comment on above: Result Comment: Crit ical Result Called to and read back by: ANGELIQUE MEYER at: 11/01/2024 21:34:39 by:[id number] Performed By: #### C UBLD, LACTIC, CMP #### [facility] [address] Protein [Mass/Vol] 6.9 g/dL Normal 6.4-8.9 [facility] Comment on above: Performed By: #### C UBLD, LACTIC, CMP #### [address] Sodium [Moles/Vol] 133 mmol/L Low 136-145 [facility] Comment on above: Performed By: #### C UBLD, LACTIC, CMP #### [facility] [address] [place] [address] [place] Urea nitrogen [Mass/Vol] 100 mg/dL High 7-25 [facility] Comment on above: Performed By: #### C UBLD, LACTIC, CMP #### [facility] [address] [place] [id number] [place] Creatine Kinaseon 11-01-2024 CK [Catalytic activity/Vol] 226 U/L High 30-223 [facility] Comment on above: Performed By: #### C UBLD, LACTIC, CMP #### [facility] [address] [place] [id number] [place] Creatine kinase [Enzymatic a ctivity/volume] in Serum or PlasmaOrdered By: Hector Mann on 11-01-2024 CK [Catalytic activity/Vol] Creatine kinase [Enzymatic activity/volume] in Serum or Plasma High 30-223 [facility] Creatinine [Mass/volume] in Serum or PlasmaOrdered By: Hector Mann on 11-01-2024 Creatinine [Mass/Vol] Creatinine [Mass/v olume] in Serum or Plasma High 0.70-1.30 [facility] Dipstick and Microscopicon 0 11-01-2024 Appearance (U) Clear Normal Clear [facility] Comment on above: Order Comment: Name Collection Type:: Clean-Voided Midstream Performed By: #### C UBLD, LACTIC, CMP #### [place] [address] [place] Bacteria,Urine Rare Normal None Seen [facility] Comment on above: Order Comment: Name Collection Type:: Clean-Voided Midstream Performed By: #### C UBLD, LACTIC, CMP #### [place] [address] [place] Bilirubin,Urine Negative Normal Negative [facility] Comment on above: Order Comment: Name Collection Type:: Clean-Voided Midstream Performed By: #### C UBLD, LACTIC, CMP #### [place] [address] [place] Color (U) Light-Yellow Normal Yellow [facility] Comment on above: Order Comment: Name Collection Type:: Clean-Voided Midstream Performed By: #### C UBLD, LACTIC, CMP #### [place] [address] [place] Glucose Ql (U) 200 mg/dL High Normal [facility] Comment on above: Order Comment: Name Collection Type:: Clean-Voided Midstream Performed By: #### C UBLD, LACTIC, CMP #### [place] [address] [place] Hyaline Casts,Urine None Normal 0-8 [facility] Comment on above: Order Comment: Name Collection Type:: Clean-Voided Midstream Result Comment: PERF ORMED BY: [place] [address] PATHOLOGIST SKILLED NURSING PROFESSIONAL CRISTHIAN HUFF M.D. Performed By: #### C UBLD, LACTIC, CMP #### [place] [address] [place] Ketones Ql (U) Negative Normal Negative [facility] Comment on above: Order Comment: Name Collection Type:: Clean-Voided Midstream Performed By: #### C UBLD, LACTIC, CMP #### [address] Leukocyte esterase Test strip Ql (U) Negative Normal Negative [facility] Comment on above: Order Comment: Name Collection Type:: Clean-Voided Midstream Performed By: #### C UBLD, LACTIC, CMP #### [address] Nitrite,Urine Negative Normal Negative [facility] Comment on above: Order Comment: Name Collection Type:: Clean-Voided Midstream Performed By: #### C UBLD, LACTIC, CMP #### [address] Occult Blood,Urine 2+ High Negative [facility] Comment on above: Order Comment: Name Collection Type:: Clean-Voided Midstream Result Comment: PERF ORMED BY: [place] [address] PATHOLOGIST SKILLED NURSING PROFESSIONAL CRISTHIAN HUFF M.D. Performed By: #### C UBLD, LACTIC, CMP #### [address] pH (U) 7.0 [pH] Normal 5.0-9.0 [facility] Comment on above: Order Comment: Name Collection Type:: Clean-Voided Midstream Performed By: #### C UBLD, LACTIC, CMP #### [address] Protein (U) [Mass/Vol] 200 mg/dL High Negative [facility] Comment on above: Order Comment: Name Collection Type:: Clean-Voided Midstream Performed By: #### C UBLD, LACTIC, CMP #### [place] [address] [place] RBC,Urine 10-19 High 0-4 [facility] Comment on above: Order Comment: Name Collection Type:: Clean-Voided Midstream Performed By: #### C UBLD, LACTIC, CMP #### [place] [address] [place] Specificy [place],Urine 1.010 Normal 1.001-1.030 [facility] Comment on above: Order Comment: Name Collection Type:: Clean-Voided Midstream Performed By: #### C UBLD, LACTIC, CMP #### [address] Squamous Epithelial Cell,Urine 1-2 Normal 0-2 [facility] Comment on above: Order Comment: Name Collection Type:: Clean-Voided Midstream Performed By: #### C UBLD, LACTIC, CMP #### [address] Urobilinogen,Urine Normal Normal Normal [facility] Comment on above: Order Comment: Name Collection Type:: Clean-Voided Midstream Performed By: #### C UBLD, LACTIC, CMP #### [address] WBC,Urine 3-4 Normal 0-4 [facility] Comment on above: Order Comment: Name Collection Type:: Clean-Voided Midstream Performed By: #### C UBLD, LACTIC, CMP #### [address] ECG 12 lead ECGon 11-01-2024 ECG 12 lead ECG [facility] [place] [address] [place] [address] Electrocardiograph Report Signed Patient: Yoel Werner MR#: [id number] : 1985 Acct:[id number] Age/Sex: 39 / M ADM Date: 11/01/24 Loc: Room: [address] [place] [address] Type: ADM INOo Attending Dr: Judd Jacobs MD Ordering Provider: Hector Mann DO Date of Service: 11/01/24 ECG/ECG 12 lead ECG: Nausea/Vomiting/Diarrhea Copies to: Test Reason : Blood Pressure : */* mmHG Vent. Rate : 73 BPM Atrial Rate : 73 BPM P-R Int : 190 ms QRS Dur : 94 ms QT Int : 406 ms P-R-T Axes : 48 63 52 degrees QTcB Int : 447 ms Normal sinus rhythm Abnormal ECG When compared with ECG of 15-Sep-2024 19:40, T wave inversion now evident in Lateral leads Confirmed [place] HECTOR MANN DO ([id number]) on 11/02/2024 12:56:38 AM Referred By: Electronically Signed By: HECTOR MANN DO Transcribed By: MUS Signed By Hector Mann DO 11/02 0056 Normal [facility] Eosinophils Auto (Bld) [#/Vo l]Ordered By: Hector Mann on 11-01-2024 Eosinophils (Bld) [#/Vol] Automated eosinophil count 0.0-0.45 [facility] Eosinophils/100 WBC Auto (Bl d)Ordered By: Hector Mann on 11-01-2024 Eosinophils/100 WBC (Bld) Automated eosinophil % . [facility] Epithelial cells.squamous [# /area] in Urine sediment by Automated countOrdered By: Hector Mann on 11-01-2024 Epithelial cells.squamous Auto (Urine sed) [#/Area] Epithelial cells.squamous [#/area] in Urine sediment by Automated count 0-2 [facility] Erythrocyte distribution wid th Auto (RBC) [Ratio]Ordered By: Hector Mann on 11-01-2024 Erythrocyte distribution width (RBC) [Ratio] Erythrocyte distribution width [Ratio] by Automated count High 12.0-14.8 [facility] Erythrocytes [#/area] in Uri ne sediment by Automated countOrdered By: Hector Mann on 11-01-2024 RBC Auto (Urine sed) [#/Area] Erythrocytes [#/area] in Urine sediment by Automated count High 0-4 [facility] Globulin Calc (S) [Mass/Vol] Ordered By: Hector Mann on 11-01-2024 Globulin (S) [Mass/Vol] Serum globulin measurement by calculation (mass/volume) [facility] Glucose Glucometer (BldC) [M ass/Vol]Ordered By: Hector Mann on 11-01-2024 Glucose [Mass/Vol] Capillary blood gluc ose measurement by glucometer (mass/volume) [facility] Comment on above: Random Glucose Refer ence Range is dependent on time and content of last meal. Glucose of more than 200 mg/dL in a nonstressed, ambulatory subject supports the diagnosis of Diabetes Mellitus. Glucose Poct Glucometerson 0 11-01-2024 Commemt1 Glu2: Cleaned Meter Normal [facility] Comment on above: Result Comment: PERF ORMED BY: [facility] [address] [place] [address] PATHOLOGIST SKILLED NURSING PROFESSIONAL CRISTHIAN HUFF M.D. Performed By: #### B ROLL HANDLER, CMP, CBC, HS TROP #### [facility] [address] [place] [address] [place] Glucose [Mass/Vol] 128 mg/dL Normal [facility] Comment on above: Result Comment: [place] om Glucose Reference Range is dependent on time and content of last meal. Glucose of more than 200 mg/dL in a nonstressed, ambulatory subject supports the diagnosis of Diabetes Mellitus. Performed By: #### B ROLL HANDLER, CMP, CBC, HS TROP #### [facility] [address] [place] [address] [place] Glucose [Mass/volume] in Ser um or PlasmaOrdered By: Hector Mann on 11-01-2024 Glucose [Mass/Vol] Glucose [Mass/volume ] in Serum or Plasma High 70-100 [facility] Comment on above: ADA recommended refe rence rangeRandom Glucose Reference Range is dependent on time and content of last meal. Glucose of more than 200 mg/dL in a nonstressed, ambulatory subject supports the diagnosis of Diabetes Mellitus. Glucose [Mass/volume] in Uri ne by Test stripOrdered By: Hector Mann on 11-01-2024 Glucose Test strip (U) [Mass/Vol] Glucose [Mass/volume] in Urine by Test strip High Normal [facility] Hematocrit Auto (Bld) [Volum e fraction]Ordered By: Hector Mann on 11-01-2024 Hematocrit (Bld) [Volume fraction] Hematocrit [Volume Fraction] of Blood by Automated count Low 38.8-50.0 [facility] Hemoglobin Test strip Ql (U) Ordered By: Hector Mann on 11-01-2024 Hemoglobin Ql (U) Hemoglobin [Presence ] in Urine by Test strip High Negative [facility] Hemoglobin [Mass/volume] in BloodOrdered By: Hector Mann on 11-01-2024 Hemoglobin (Bld) [Mass/Vol] Hemoglobin [Mass/volume] in Blood Low 13.0-17.0 [facility] Hyaline casts [#/area] in Ur ine sediment by Automated countOrdered By: Hector Mann on 11-01-2024 Hyaline casts Auto (Urine sed) [#/Area] Hyaline casts [#/area] in Urine sediment by Automated count 0-8 [facility] INR in Platelet poor plasma by Coagulation assayOrdered By: Hector Mann on 11-01-2024 INR Coag (PPP) [Relative time] INR in Platelet poor plasma by Coagulation assay [facility] Comment on above: INR Therapeutic Rang [...] with mechanical heart valves: 3 - 4.5 Ketones Test strip Ql (U)Ord ered By: Hector Mann on 11-01-2024 Ketones Ql (U) Ketones [Presence] i n Urine by Test strip Negative [facility] Laboratory - Microbiology an d Antimicrobial susceptibilityOrdered By: Hector Mann on 11-01-2024 Bacteria identified Cx Nom (Bld) NO GROWTH 5 DAYS [facility] Bacteria identified Cx Nom (Bld) NO GROWTH 5 DAYS [facility] Lactate [Moles/volume] in Se rum or PlasmaOrdered By: Hector Mann on 11-01-2024 Lactate [Moles/Vol] Lactate [Moles/volum e] in Serum or Plasma 0.5-1.9 [facility] Comment on above: Lactic Acid referenc e range has been updated to 0.5 1.9 mmol/L and the critical range of 2.0 or greater. Lactic Acidon 11-01-2024 Lactate [Moles/Vol] 0.5 mmol/L Normal 0.5-1.9 [facility] Comment on above: Result Comment: Lact ic Acid reference range has been updated to 0.5 ? 1.9 mmol/L and the critical range of 2.0 or greater. PERFORMED BY: [facility] [address] [place] [address] PATHOLOGIST SKILLED NURSING PROFESSIONAL CRISTHIAN HUFF M.D. Performed By: #### C UBLD, LACTIC, CMP #### [facility] [address] Leukocyte esterase [Presence ] in Urine by Test stripOrdered By: Hector Mann on 11-01-2024 Leukocyte esterase Test strip Ql (U) Leukocyte esterase [Presence] in Urine by Test strip Negative [facility] Leukocytes [#/area] in Urine sediment by Automated countOrdered By: Hector Mann on 11-01-2024 WBC Auto (Urine sed) [#/Area] Leukocytes [#/area] in Urine sediment by Automated count 0-4 [facility] Leukocytes [#/volume] correc celena for nucleated erythrocytes in Blood by Automated counOrdered By: Hector Mann on 11-01-2024 WBC corrected for nucl RBC Auto (Bld) [#/Vol] Leukocytes [#/volume] corrected for nucleated erythrocytes in Blood by Automated coun 4.1-10.5 [facility] Lymphocytes Auto (Bld) [#/Vo l]Ordered By: Hector Mann on 11-01-2024 Lymphocytes (Bld) [#/Vol] Lymphocytes [#/volume] in Blood by Automated count Low 1.00-4.8 [facility] Lymphocytes/100 WBC Auto (Bl d)Ordered By: Hector Mann on 11-01-2024 Lymphocytes/100 WBC (Bld) Lymphocytes/100 leukocytes in Blood by Automated count . [facility] MCH Auto (RBC) [Entitic mass ]Ordered By: Hector Mann on 11-01-2024 MCH (RBC) [Entitic mass] MCH [Entitic mass] by Automated count 27.5-35.2 [facility] MCHC Auto (RBC) [Mass/Vol]Or dered By: Hector Mann on 11-01-2024 MCHC (RBC) [Mass/Vol] MCHC [Mass/volume] by Automated count 32.5-35.6 [facility] MCV Auto (RBC) [Entitic vol] Ordered By: Hector Mann on 11-01-2024 MCV (RBC) [Entitic vol] MCV [Entitic vol ume] by Automated count 83.5-101 [facility] Magnesiumon 11-01-2024 Magnesium [Mass/Vol] 2.8 mg/dL High 1.9-2.7 [facility] Comment on above: Result Comment: PERF ORMED BY: [facility] [address] [place] [address] PATHOLOGIST SKILLED NURSING PROFESSIONAL CRISTHIAN HUFF M.D. Performed By: #### C UBLD, LACTIC, CMP #### [address] Magnesium [Mass/volume] in S gretta or PlasmaOrdered By: Hector Mann on 11-01-2024 Magnesium [Mass/Vol] Magnesium [Mass/vol ume] in Serum or Plasma High 1.9-2.7 [facility] Monocyte distribution width [Entitic volume] in Blood by AutomatedOrdered By: Hector Mann on 11-01-2024 Monocyte distribution width Auto (Bld) [Entitic vol] Monocyte distribution width [Entitic volume] in Blood by Automated 0.00-20.00 [facility] Monocytes Auto (Bld) [#/Vol] Ordered By: Hector Mann on 11-01-2024 Monocytes (Bld) [#/Vol] Automated blood monocyte count 0.0-0.8 [facility] Monocytes/100 WBC Auto (Bld) Ordered By: Hector Mann on 11-01-2024 Monocytes/100 WBC (Bld) Automated monocyte % . [facility] Natriuretic peptide B [Mass/ Vol]Ordered By: Hector Mann on 11-01-2024 Natriuretic peptide B (Bld) [Mass/Vol] BNP ser/plas High 5-100 [facility] Neutrophils Auto (Bld) [#/Vo l]Ordered By: Hector Mann on 11-01-2024 Neutrophils (Bld) [#/Vol] Neutrophils [#/volume] in Blood by Automated count 1.8-7.7 [facility] Neutrophils/100 WBC Auto (Bl d)Ordered By: Hector Mann on 11-01-2024 Neutrophils/100 WBC (Bld) Automated neutrophil % . [facility] Nitrite Test strip Ql (U)Ord ered By: Hector Mann on 11-01-2024 Nitrite Ql (U) Nitrite [Presence] i n Urine by Test strip Negative [facility] No Panel InformationOrdered By: Hector Mann on 11-01-2024 Estimated GFR (CKD-EPI) 6.278 mL/Min [facility] Creatinine Clearance (Chem 10.86 [facility] Bedside Glucose Comment Glu2: cleaned meter [facility] Nucleated erythrocytes [Pres ence] in Blood by Automated countOrdered By: Hector Mann on 11-01-2024 Nucleated RBC Auto Ql (Bld) Nucleated erythrocytes [Presence] in Blood by Automated count 0-0.5 [facility] Platelet mean volume Auto (B ld) [Entitic vol]Ordered By: Hector Mann on 11-01-2024 Platelet mean volume (Bld) [Entitic vol] Platelet mean volume [Entitic volume] in Blood by Automated count 6.6-10.1 [facility] Platelets Auto (Bld) [#/Vol] Ordered By: Hector Mann on 11-01-2024 Platelets (Bld) [#/Vol] Platelets [#/vol ume] in Blood by Automated count Low 150-450 [facility] Potassium [Moles/volume] in Serum or PlasmaOrdered By: Hector Mann on 11-01-2024 Potassium [Moles/Vol] Potassium [Moles/v olume] in Serum or Plasma Critically high 3.5-5.1 [facility] Comment on above: Critical Result Call ed to and read back by: ANGELIQUE MEYER at: 11/01/2024 21:34:39 by:[id number] Protein Test strip (U) [Mass /Vol]Ordered By: Hector Mann on 11-01-2024 Protein (U) [Mass/Vol] Protein [Mass/vol ume] in Urine by Test strip High Negative [facility] Protein [Mass/volume] in Ser um or PlasmaOrdered By: Hector Mann on 11-01-2024 Protein [Mass/Vol] Protein [Mass/volume ] in Serum or Plasma 6.4-8.9 [facility] Prothrombin Time INRon 11-01 INR Coag (PPP) [Relative time] 1.2 {INR} Normal [facility] Comment on above: Result [...] with mechanical heart valves: 3 - 4.5 PERFORMED BY: [place] [address] PATHOLOGIST SKILLED NURSING PROFESSIONAL CRISTHIAN HUFF M.D. Performed By: #### C UBLD, LACTIC, CMP #### [facility] [address] [place] [id number] [facility] PT Coag (PPP) [Time] 13.5 s High 9.0-12.9 [facility] Comment on above: Result Comment: A he matocrit value greater than 55% may lead to inaccurate results in coagulation testing. Patients having hematocrit values >55% require a special collection tube for coagulation studies. Please contact the laboratory at [phone] for redraw instructions. Performed By: #### C UBLD, LACTIC, CMP #### [facility] [address] [place] [id number] [facility] Prothrombin time (PT)Ordered By: Hector Mann on 11-01-2024 PT Coag (PPP) [Time] Prothrombin time (PT) High 9.0- 12.9 [facility] Comment on above: A hematocrit value g reater than 55% may lead to inaccurate results in coagulation testing. Patients having hematocrit values >55% require a special collection tube for coagulation studies. Please contact the laboratory at [phone] for redraw instructions. RBC Auto (Bld) [#/Vol]Ordere d By: Hector Mann on 11-01-2024 RBC (Bld) [#/Vol] Erythrocytes [#/volu me] in Blood by Automated count Low 3.90-5.60 [facility] Respiratory (Upper) Panel, P CRon 11-01-2024 Respiratory (Upper) Panel, PCR Adenovirus Not detected Bordetella parapertussis Not detected Chlamydia pneumoniae Not detected Coronavirus 229E Not detected Coronavirus HKU1 Not detected Coronavirus NL63 Not detected Coronavirus OC43 Not detected Influenza A Not detected Influenza B Not detected Human Metapneumovirus Not detected Mycoplasma pneumoniae Not detected Parainfluenza Virus 1 Not detected Parainfluenza Virus 2 Not detected Parainfluenza Virus 3 Not detected Parainfluenza Virus 4 Not detected Bordetella pertussis-ptxP Not detected Human Rhino/Enterovirus Not detected Resp. Syncytial Virus Not detected COVID-19 Detected/Not Detected Not detected Blank Space ------ FLUA TEST INCLUDES Influenza A tests for the following clinically FLUA TEST INCLUDES significant subtypes: FLUA TEST INCLUDES - Influenza A FLUA TEST INCLUDES - Influenza A H1 FLUA TEST INCLUDES - Influenza A H1 2009 FLUA TEST INCLUDES - Influenza A H3 Blank Space ------ PERFORMED BY: [facility] [address] [place] [address] PATHOLOGIST SKILLED NURSING PROFESSIONAL CRISTHIAN HUFF M.D. Normal [facility] Comment on above: Performed By: #### C UBLD, LACTIC, CMP #### [facility] [address] Respiratory pathogens DNA an d RNA panel - Nasopharynx by HAO with non-probe detectionOrdered By: Hector Mann on 11-01-2024 Respiratory pathogens DNA and RNA panel HAO+non-probe (Nph) Respiratory pathogens DNA and RNA panel - Nasopharynx by HAO with non-probe detection [facility] Serum or plasma albumin/glob ulin mass ratioOrdered By: Hector Mann on 11-01-2024 Albumin/Globulin [Mass ratio] Serum or plasma albumin/globulin mass ratio [facility] Serum or plasma anion gap de terminationOrdered By: Hector Mann on 11-01-2024 Anion gap [Moles/Vol] Serum or plasma an ion gap determination High 6.0-15.0 [facility] Sodium [Moles/volume] in Ser um or PlasmaOrdered By: Hector Mann on 11-01-2024 Sodium [Moles/Vol] Sodium [Moles/volume ] in Serum or Plasma Low 136-145 [facility] Specific gravity Test strip (U) [Rel density]Ordered By: Hector Mann on 11-01-2024 Specific gravity (U) [Rel density] Specific gravity of Urine by Test strip 1.001-1.030 [facility] Troponin I High Sensitivityo n 11-01-2024 Troponin I High Sensitivity 62 Off scale high 0-20 [facility] Comment on above: Result Comment: Crit ical Result : Called to and read back by: ENRIQUE RICO at: 11/01/2024 23:00:13 by:[id number] The Troponin units of report have been changed to meet the Chest Pain Accreditation requirement, element EC5.M1l2. Troponin units are changed from pg/ml to ng/L. Also, the decimal is removed and results are in whole numbers. PERFORMED BY: [place] [address] PATHOLOGIST SKILLED NURSING PROFESSIONAL CRISTHIAN HUFF M.D. Performed By: #### C UBLD, [facility], CMP #### [address] Troponin I.cardiac [Mass/vol ume] in Serum or Plasma by Detection limit <= 0.01 ng/Ordered By: Hector Mann on 11-01-2024 Troponin I.cardiac DL <= 0.01 ng/mL [Mass/Vol] Troponin I.cardiac [Mass/volume] in Serum or Plasma by Detection limit <= 0.01 ng/ Critically high 0-20 [facility] Comment on above: Critical Result : Ca lled to and read back by: ENRIQUE RICO at: 11/01/2024 23:00:13 by:[id number] Troponin units of report have been changed to meet the Chest Pain Accreditation requirement, element EC5.M1l2. Troponin units are changed from pg/ml to ng/L. Also, the decimal is removed and results are in whole numbers. Urea nitrogen [Mass/volume] in Serum or PlasmaOrdered By: Hector Mann on 11-01-2024 Urea nitrogen [Mass/Vol] Urea nitrogen [Mass/volume] in Serum or Plasma High 7-25 [facility] Urobilinogen Test strip (U) [Mass/Vol]Ordered By: Hector Mann on 11-01-2024 Urobilinogen (U) [Mass/Vol] Urobilinogen [Mass/volume] in Urine by Test strip Normal [facility] WBC Auto (Bld) [#/Vol]Ordere d By: Hector Mann on 11-01-2024 WBC (Bld) [#/Vol] Leukocytes [#/volume ] in Blood by Automated count 4.1-10.5 [facility] pH Test strip (U)Ordered By: Hector Mann on 11-01-2024 pH (U) pH of Urine by Test strip 5.0-9.0 [facility] Clinical Supporton Clinical Support [id number] Yoel Werner 1985 M Date Provider Department Center 10/27/2024 [id number] IZAGUIRRE [facility] Family History Problem Relation Age of Onset Pancreatic cancer Mother Diabetes Mother Liver disease Mother Hypertension Father Irritable bowel syndrome Father Stroke Father Coronary artery disease Brother 55 Lung cancer Paternal Grandmother Coronary artery disease Paternal Grandfather Family Status - Relation Status Age at Mother Father Alive Brother Paternal Grandmother Paternal Grandfather Reason for Visit and Comments: Psychiatric Evaluation [[id number]] [facility] Telephoneon 10-27-2024 Telephone [phone] Yoel Werner 1985 M Date Provider Department Center 10/27/2024 TIANA BUSCH [facility] Family History Problem Relation Age of Onset Pancreatic cancer Mother Diabetes Mother Liver disease Mother Hypertension Father Irritable bowel syndrome Father Stroke Father Coronary artery disease Brother 55 Lung cancer Paternal Grandmother Coronary artery disease Paternal Grandfather Family Status - Relation Status Age at Mother Father Alive Brother Paternal Grandmother Paternal Grandfather [facility] 36on 10-20-2024 36 Patient confirmed ti me change of his appointments on 11/03/24. The start time was moved from 1pm to 8am. Patient will have Vascular US of LE, lab work, and then MURIEL. Patient instructed to check in at registration. Normal [facility] Orders Onlyon 09-24-2024 Orders Only [id number] Yoel Werner 1985 M Date Provider Department Center 09/24/2024 LANCE SAWANT [facility] Family History Problem Relation Age of Onset Pancreatic cancer Mother Diabetes Mother Liver disease Mother Hypertension Father Irritable bowel syndrome Father Stroke Father Coronary artery disease Brother 55 Lung cancer Paternal Grandmother Coronary artery disease Paternal Grandfather Family Status - Relation Status Age at Mother Father Alive Brother Paternal Grandmother Paternal Grandfather Normal [facility] Basic Metabolic Panelon 08-21 Anion gap [Moles/Vol] 12.4 mmol/L Normal 6.0-15.0 [facility] Comment on above: Performed By: #### B ROLL HANDLER, CMP, CBC, HS TROP #### [facility] [address] [place] [id number] [place] Calcium [Mass/Vol] 8.6 mg/dL Normal 8.6-10.3 [facility] Comment on above: Performed By: #### B ROLL HANDLER, CMP, CBC, HS TROP #### [facility] [address] [place] [address] [place] Chloride [Moles/Vol] 95 mmol/L Low 98-107 [facility] Comment on above: Performed By: #### B ROLL HANDLER, CMP, CBC, HS TROP #### [facility] [address] [place] [address] [place] CO2 [Moles/Vol] 29.1 mmol/L Normal 21.0-31.0 [facility] Comment on above: Performed By: #### B ROLL HANDLER, CMP, CBC, HS TROP #### [facility] [address] [place] [address] [place] Creatinine [Mass/Vol] 5.04 mg/dL Significan t change up 0.70-1.30 [facility] Comment on above: Performed By: #### B ROLL HANDLER, CMP, CBC, HS TROP #### [facility] [address] [place] [address] [place] Creatinine Clr Calc Pharmacy 20.04 Normal [facility] Comment on above: Result Comment: PERF ORMED BY: [place] [address] PATHOLOGIST SKILLED NURSING PROFESSIONAL CRISTHIAN HUFF M.D. Performed By: #### B ROLL HANDLER, CMP, CBC, HS TROP #### [address] Estimated GFR 14.096 mL/Min Normal [facility] Comment on above: Performed By: #### B ROLL HANDLER, CMP, CBC, HS TROP #### [address] Glucose [Mass/Vol] 136 mg/dL High 70-100 [facility] Comment on above: Result Comment: [place] Glucose Reference Range is dependent on time and content of last meal. Glucose of more than 200 mg/dL in a nonstressed, ambulatory subject supports the diagnosis of Diabetes Mellitus. ADA recommended reference range Performed By: #### B ROLL HANDLER, CMP, CBC, HS TROP #### [address] Potassium [Moles/Vol] 4.5 mmol/L Normal 3.5-5.1 [facility] Comment on above: Performed By: #### B ROLL HANDLER, CMP, CBC, HS TROP #### [address] Sodium [Moles/Vol] 132 mmol/L Low 136-145 [facility] Comment on above: Performed By: #### B ROLL HANDLER, CMP, CBC, HS TROP #### [address] Urea nitrogen [Mass/Vol] 33 mg/dL High 7-25 [facility] Comment on above: Performed By: #### B ROLL HANDLER, CMP, CBC, HS TROP #### [place] [address] [place] Basophils Auto (Bld) [#/Vol] Ordered By: Enrique Kirby on 09-17-2024 Basophils (Bld) [#/Vol] Automated basophil count 0.0-0.2 [facility] Basophils/100 WBC Auto (Bld) Ordered By: Enrique Kirby on 09-17-2024 Basophils/100 WBC (Bld) Automated basophil % . [facility] C reactive protein [Mass/vol ume] in Serum or PlasmaOrdered By: Crow Conte on 09-17-2024 CRP [Mass/Vol] C reactive protein [Mass/volume] in Serum or Plasma High 0.0-0.5 [facility] C-Reactive Proteinon 025 C-Reactive Protein 1.3 mg/dL High 0.0-0.5 [facility] Comment on above: Order Comment: Comme nt May add to existing blood work Result Comment: PERF ORMED BY: [place] [address] PATHOLOGIST SKILLED NURSING PROFESSIONAL CRISTHIAN HUFF M.D. Performed By: #### B ROLL HANDLER, CMP, CBC, HS TROP #### [address] chest wo conon 09-17-2024 CT chest wo con [facility] [place] [address] [place] [address] CT Scan Report Signed Patient: Yoel Werner MR#: [id number] : 1985 Acct:[id number] Age/Sex: 39 / M ADM Date: 09/16/24 Loc: Room: [address] [place] [address] Type: ADM IN Attending Dr: Toney Riley MD Copies to: MD Toney Castellano MD Ordering Provider: Angel Mejía MD Date of Service: 09/17/24 CT/CT chest wo con: SOb CT CHEST WITHOUT IV CONTRAST: CLINICAL HISTORY: Shortness of breath, COVID positive COMPARISON: None TECHNIQUE: Spiral images were obtained through the chest without IV contrast. This CT exam was performed using one or more following dose reduction techniques: Automated exposure control, adjustment of the mA and/or kV according to patient size, or use of iterative reconstruction technique. FINDINGS: Mediastinum:Thoracic ribs is moderate calcification without aneurysm. Pulmonary trunk appears nondilated. Small amount of pericardial fluid. No lymphadenopathy. The esophagus is grossly unremarkable. Lungs:Subtle areas of scattered groundglass likely related to the history. No consolidation pneumothorax or pleural effusion. Calcified granuloma right lower lobe. Abd:No acute findings. Soft tissues/Bones: Soft tissues demonstrate bilateral gynecomastia. Osseous structures demonstrate degenerative change. CT/CT chest wo con IMPRESSION: Subtle areas of groundglass are seen within the lungs likely related to the history of COVID. Follow-up is recommended to ensure resolution. Impression dictated by: Yoel Mart Jr., D.O.09/17/2024 4:01 PM Dictation Location: [facility]- Transcribed By: [facility] 09/17/24 1601 Dictated By: Yoel Mart Jr, DO 09/17/24 1559 Signed By: 09/17/24 1601 Normal [facility] Calcium [Mass/volume] in Ser um or PlasmaOrdered By: Enrique Kirby on 09-17-2024 Calcium [Mass/Vol] Calcium [Mass/volume ] in Serum or Plasma 8.6-10.3 [facility] Carbon dioxide, total [Moles /volume] in Serum or PlasmaOrdered By: Enrique Kirby on 09-17-2024 CO2 [Moles/Vol] Carbon dioxide, tota l [Moles/volume] in Serum or Plasma 21.0-31.0 [facility] Chloride [Moles/volume] in S gretta or PlasmaOrdered By: Enrique Kirby on 09-17-2024 Chloride [Moles/Vol] Chloride [Moles/vol ume] in Serum or Plasma Low 98-107 [facility] Complete Blood Count Auto Di ffon 09-17-2024 Basophils (Bld) [#/Vol] 0.0 10*3/uL Normal 0.0-0.2 [facility] Comment on above: Result Comment: PERF ORMED BY: [place] [address] PATHOLOGIST SKILLED NURSING PROFESSIONAL CRISTHIAN HUFF M.D. Performed By: #### B ROLL HANDLER, CMP, CBC, HS TROP #### [address] Basophils/100 WBC (Bld) 1.3 % Normal . [facility] Comment on above: Performed By: #### B ROLL HANDLER, CMP, CBC, HS TROP #### [address] Eosinophils (Bld) [#/Vol] 0.1 10*3/uL Normal 0.0-0.45 [facility] Comment on above: Performed By: #### B ROLL HANDLER, CMP, CBC, HS TROP #### [address] Eosinophils/100 WBC (Bld) 3.0 % Normal . [facility] Comment on above: Performed By: #### B ROLL HANDLER, CMP, CBC, HS TROP #### [address] Erythrocyte distribution width (RBC) [Ratio] 14.3 % Normal 12.0-14.8 [facility] Comment on above: Performed By: #### B ROLL HANDLER, CMP, CBC, HS TROP #### [address] Hematocrit (Bld) [Volume fraction] 29.6 % Low 38.8-50.0 [facility] Comment on above: Performed By: #### B ROLL HANDLER, CMP, CBC, HS TROP #### [address] Hemoglobin (Bld) [Mass/Vol] 9.8 g/dL Low 13.0-17.0 [facility] Comment on above: Performed By: #### B ROLL HANDLER, CMP, CBC, HS TROP #### [address] Lymphocytes (Bld) [#/Vol] 0.3 10*3/uL Low 1.00-4.8 [facility] Comment on above: Performed By: #### B ROLL HANDLER, CMP, CBC, HS TROP #### [address] Lymphocytes/100 WBC (Bld) 15.3 % Normal . [facility] Comment on above: Performed By: #### B ROLL HANDLER, CMP, CBC, HS TROP #### [address] MCH (RBC) [Entitic mass] 28.3 pg Normal 27.5-35.2 [facility] Comment on above: Performed By: #### B ROLL HANDLER, CMP, CBC, HS TROP #### [address] MCV (RBC) [Entitic vol] 85.1 fL Normal 83.5-101 [facility] Comment on above: Performed By: #### B ROLL HANDLER, CMP, CBC, HS TROP #### [address] Mean Corpuscular HGB Conc 33.2 g/dL Normal 32.5-35.6 [facility] Comment on above: Performed By: #### B ROLL HANDLER, CMP, CBC, HS TROP #### [address] Monocytes (Bld) [#/Vol] 0.3 10*3/uL Normal 0.0-0.8 [facility] Comment on above: Performed By: #### B ROLL HANDLER, CMP, CBC, HS TROP #### [address] Monocytes/100 WBC (Bld) 12.4 % Normal . [facility] Comment on above: Performed By: #### B ROLL HANDLER, CMP, CBC, HS TROP #### [address] Neutrophils (Bld) [#/Vol] 1.5 10*3/uL Low 1.8-7.7 [facility] Comment on above: Performed By: #### B ROLL HANDLER, CMP, CBC, HS TROP #### [address] Neutrophils/100 WBC (Bld) 68.0 % Normal . [facility] Comment on above: Performed By: #### B ROLL HANDLER, CMP, CBC, HS TROP #### [address] NRBC% 0.3 /100{WBC} Normal 0-0.5 [facility] Comment on above: Performed By: #### B ROLL HANDLER, CMP, CBC, HS TROP #### [facility] [address] Platelet mean volume (Bld) [Entitic vol] 7.6 fL Normal 6.6-10.1 [facility] Comment on above: Performed By: #### B ROLL HANDLER, CMP, CBC, HS TROP #### [facility] [address] Platelets (Bld) [#/Vol] 113 10*3/uL Low 150-450 [facility] Comment on above: Performed By: #### B ROLL HANDLER, CMP, CBC, HS TROP #### [facility] [address] RBC (Bld) [#/Vol] 3.47 10*6/uL Low 3.90-5.60 [facility] Comment on above: Performed By: #### B ROLL HANDLER, CMP, CBC, HS TROP #### [address] WBC (Bld) [#/Vol] 2.3 10*3/uL Low 4.1-10.5 [facility] Comment on above: Performed By: #### B ROLL HANDLER, CMP, CBC, HS TROP #### [address] Creatinine [Mass/volume] in Serum or PlasmaOrdered By: Enrique Kirby on 09-17-2024 Creatinine [Mass/Vol] Creatinine [Mass/v olume] in Serum or Plasma Invalid Interpretation Code 0.70-1.30 [facility] Comment on above: Delta: 6.71 on 09/16-0452 Eosinophils Auto (Bld) [#/Vo l]Ordered By: Enrique Kirby on 09-17-2024 Eosinophils (Bld) [#/Vol] Automated eosinophil count 0.0-0.45 [facility] Eosinophils/100 WBC Auto (Bl d)Ordered By: Enrique Kirby on 09-17-2024 Eosinophils/100 WBC (Bld) Automated eosinophil % . [facility] Erythrocyte distribution wid th Auto (RBC) [Ratio]Ordered By: Enrique Kirby on 09-17-2024 Erythrocyte distribution width (RBC) [Ratio] Erythrocyte distribution width [Ratio] by Automated count 12.0-14.8 [facility] Glucose Glucometer (BldC) [M ass/Vol]Ordered By: Toney Riley on 09-17-2024 Glucose [Mass/Vol] Capillary blood gluc ose measurement by glucometer (mass/volume) [facility] Comment on above: Random Glucose Refer ence Range is dependent on time and content of last meal. Glucose of more than 200 mg/dL in a nonstressed, ambulatory subject supports the diagnosis of Diabetes Mellitus. Glucose Poct Glucometerson 0 09-17-2024 Glucose [Mass/Vol] 182 mg/dL Normal [facility] Comment on above: Result Comment: [place] om Glucose Reference Range is dependent on time and content of last meal. Glucose of more than 200 mg/dL in a nonstressed, ambulatory subject supports the diagnosis of Diabetes Mellitus. PERFORMED BY: [place] [address] PATHOLOGIST SKILLED NURSING PROFESSIONAL CRISTHIAN HUFF M.D. Performed By: #### C UBLD, LACTIC, CMP #### [facility] [address] [place] [address] Glucose [Mass/Vol] 199 mg/dL Normal [facility] Comment on above: Result Comment: [place] om Glucose Reference Range is dependent on time and content of last meal. Glucose of more than 200 mg/dL in a nonstressed, ambulatory subject supports the diagnosis of Diabetes Mellitus. PERFORMED BY: [place] [address] PATHOLOGIST SKILLED NURSING PROFESSIONAL CRISTHIAN HUFF M.D. Performed By: #### B ROLL HANDLER, CMP, CBC, HS TROP #### [facility] [address] [place] [address] Glucose [Mass/Vol] 165 mg/dL Normal [facility] Comment on above: Result Comment: [place] om Glucose Reference Range is dependent on time and content of last meal. Glucose of more than 200 mg/dL in a nonstressed, ambulatory subject supports the diagnosis of Diabetes Mellitus. PERFORMED BY: [place] [address] PATHOLOGIST SKILLED NURSING PROFESSIONAL CRISTHIAN HUFF M.D. Performed By: #### C UBLD, LACTIC, CMP #### [address] Commemt1 Glu2: Cleaned Meter Normal [facility] Comment on above: Result Comment: PERF ORMED BY: [place] [address] PATHOLOGIST SKILLED NURSING PROFESSIONAL CRISTHIAN HUFF M.D. Performed By: #### C UBLD, LACTIC, CMP #### [address] Glucose [Mass/Vol] 221 mg/dL Normal [facility] Comment on above: Result Comment: [place] om Glucose Reference Range is dependent on time and content of last meal. Glucose of more than 200 mg/dL in a nonstressed, ambulatory subject supports the diagnosis of Diabetes Mellitus. Performed By: #### C UBLD, LACTIC, CMP #### [address] Commemt1 Glu2: Cleaned Meter Normal [facility] Comment on above: Result Comment: PERF ORMED BY: [place] [address] PATHOLOGIST SKILLED NURSING PROFESSIONAL CRISTHIAN HUFF M.D. Performed By: #### C UBLD, LACTIC, CMP #### [place] [address] [place] Glucose [Mass/Vol] 226 mg/dL Normal [facility] Comment on above: Result Comment: [place] om Glucose Reference Range is dependent on time and content of last meal. Glucose of more than 200 mg/dL in a nonstressed, ambulatory subject supports the diagnosis of Diabetes Mellitus. Performed By: #### C UBLD, LACTIC, CMP #### [place] [address] [place] Commemt1 Normal [facility] Comment on above: Result Comment: Glu2 : WILL NOTIFY DR/RN Performed By: #### B ROLL HANDLER, CMP, CBC, HS TROP #### [place] [address] [place] Commemt2 FOLLOW HYPOGLYCEMIC Normal [facility] Comment on above: Result Comment: PERF ORMED BY: [place] [address] PATHOLOGIST SKILLED NURSING PROFESSIONAL CRISTHIAN HUFF M.D. Performed By: #### B ROLL HANDLER, CMP, CBC, HS TROP #### [address] Glucose [Mass/Vol] 30 mg/dL Off scale low [facility] Comment on above: Result Comment: [place] om Glucose Reference Range is dependent on time and content of last meal. Glucose of more than 200 mg/dL in a nonstressed, ambulatory subject supports the diagnosis of Diabetes Mellitus. Performed By: #### B ROLL HANDLER, CMP, CBC, HS TROP #### [address] Commemt1 Normal [facility] Comment on above: Result Comment: Glu2 : WILL NOTIFY DR/RN Performed By: #### B ROLL HANDLER, CMP, CBC, HS TROP #### [address] Commemt2 Will Repeat Test Normal [facility] Comment on above: Result Comment: PERF ORMED BY: [place] [address] PATHOLOGIST SKILLED NURSING PROFESSIONAL CRISTHIAN HUFF M.D. Performed By: #### B ROLL HANDLER, CMP, CBC, HS TROP #### [place] [address] [place] Glucose [Mass/Vol] 32 mg/dL Off scale low [facility] Comment on above: Result Comment: [place] om Glucose Reference Range is dependent on time and content of last meal. Glucose of more than 200 mg/dL in a nonstressed, ambulatory subject supports the diagnosis of Diabetes Mellitus. Performed By: #### B ROLL HANDLER, CMP, CBC, HS TROP #### [place] [address] [place] Glucose [Mass/volume] in Ser um or PlasmaOrdered By: Enrique Kirby on 09-17-2024 Glucose [Mass/Vol] Glucose [Mass/volume ] in Serum or Plasma High 70-100 [facility] Comment on above: ADA recommended refe rence rangeRandom Glucose Reference Range is dependent on time and content of last meal. Glucose of more than 200 mg/dL in a nonstressed, ambulatory subject supports the diagnosis of Diabetes Mellitus. Hematocrit Auto (Bld) [Volum e fraction]Ordered By: Enrique Kirby on 09-17-2024 Hematocrit (Bld) [Volume fraction] Hematocrit [Volume Fraction] of Blood by Automated count Low 38.8-50.0 [facility] Hemoglobin [Mass/volume] in BloodOrdered By: Enrique Kirby on 09-17-2024 Hemoglobin (Bld) [Mass/Vol] Hemoglobin [Mass/volume] in Blood Low 13.0-17.0 [facility] Leukocytes [#/volume] correc celena for nucleated erythrocytes in Blood by Automated counOrdered By: Enirque Kirby on 09-17-2024 WBC corrected for nucl RBC Auto (Bld) [#/Vol] Leukocytes [#/volume] corrected for nucleated erythrocytes in Blood by Automated coun Low 4.1-10.5 [facility] Lymphocytes Auto (Bld) [#/Vo l]Ordered By: Enrique Kirby on 09-17-2024 Lymphocytes (Bld) [#/Vol] Lymphocytes [#/volume] in Blood by Automated count Low 1.00-4.8 [facility] Lymphocytes/100 WBC Auto (Bl d)Ordered By: Enrique Kirby on 09-17-2024 Lymphocytes/100 WBC (Bld) Lymphocytes/100 leukocytes in Blood by Automated count . [facility] MCH Auto (RBC) [Entitic mass ]Ordered By: Enrique Kirby on 09-17-2024 MCH (RBC) [Entitic mass] MCH [Entitic mass] by Automated count 27.5-35.2 [facility] MCHC Auto (RBC) [Mass/Vol]Or dered By: Enrique Kirby on 09-17-2024 MCHC (RBC) [Mass/Vol] MCHC [Mass/volume] by Automated count 32.5-35.6 [facility] MCV Auto (RBC) [Entitic vol] Ordered By: Enrique Kirby on 09-17-2024 MCV (RBC) [Entitic vol] MCV [Entitic vol ume] by Automated count 83.5-101 [facility] Monocytes Auto (Bld) [#/Vol] Ordered By: Enrique Kirby on 09-17-2024 Monocytes (Bld) [#/Vol] Automated blood monocyte count 0.0-0.8 [facility] Monocytes/100 WBC Auto (Bld) Ordered By: Enrique Kirby on 09-17-2024 Monocytes/100 WBC (Bld) Automated monocyte % . [facility] Neutrophils Auto (Bld) [#/Vo l]Ordered By: Enrique Kirby on 09-17-2024 Neutrophils (Bld) [#/Vol] Neutrophils [#/volume] in Blood by Automated count Low 1.8-7.7 [facility] Neutrophils/100 WBC Auto (Bl d)Ordered By: Enrique Kirby on 09-17-2024 Neutrophils/100 WBC (Bld) Automated neutrophil % . [facility] No Panel InformationOrdered By: Enrique Kirby on 09-17-2024 Estimated GFR (CKD-EPI) 14.096 mL/Min [facility] Creatinine Clearance (Chem 20.04 [facility] 14.096 mL/Min [facility] 20.04 [facility] Bedside Glucose Comment Glu2: cleaned meter [facility] Glu2: cleaned meter [facility] Bedside Glucose #2 Comment Follow hypoglycemic [facility] Follow hypoglycemic [facility] Nucleated erythrocytes [Pres ence] in Blood by Automated countOrdered By: Enrique Kirby on 09-17-2024 Nucleated RBC Auto Ql (Bld) Nucleated erythrocytes [Presence] in Blood by Automated count 0-0.5 [facility] Platelet mean volume Auto (B ld) [Entitic vol]Ordered By: Enrique Kirby on 09-17-2024 Platelet mean volume (Bld) [Entitic vol] Platelet mean volume [Entitic volume] in Blood by Automated count 6.6-10.1 [facility] Platelets Auto (Bld) [#/Vol] Ordered By: Enrique Kirby on 09-17-2024 Platelets (Bld) [#/Vol] Platelets [#/vol ume] in Blood by Automated count Low 150-450 [facility] Potassium [Moles/volume] in Serum or PlasmaOrdered By: Enrique Kirby on 09-17-2024 Potassium [Moles/Vol] Potassium [Moles/v olume] in Serum or Plasma 3.5-5.1 [facility] RBC Auto (Bld) [#/Vol]Ordere d By: Enrique Kirby on 09-17-2024 RBC (Bld) [#/Vol] Erythrocytes [#/volu me] in Blood by Automated count Low 3.90-5.60 [facility] Serum or plasma anion gap de terminationOrdered By: Enrique Kirby on 09-17-2024 Anion gap [Moles/Vol] Serum or plasma an ion gap determination 6.0-15.0 [facility] Sodium [Moles/volume] in Ser um or PlasmaOrdered By: Enrique Kirby on 09-17-2024 Sodium [Moles/Vol] Sodium [Moles/volume ] in Serum or Plasma Low 136-145 [facility] Urea nitrogen [Mass/volume] in Serum or PlasmaOrdered By: Enrique Kirby on 09-17-2024 Urea nitrogen [Mass/Vol] Urea nitrogen [Mass/volume] in Serum or Plasma High 7-25 [facility] WBC Auto (Bld) [#/Vol]Ordere d By: Enrique Kirby on 09-17-2024 WBC (Bld) [#/Vol] Leukocytes [#/volume ] in Blood by Automated count Low 4.1-10.5 [facility] 36on 09-16-2024 36 Spoke with patient, he verbalized understanding and would like to proceed with the MURIEL. Normal [facility] 36 ----- Message from Sujatha Lou MD sent at 09/16/2024 6:23 AM EST ----- His echo showed severe mitral regurgitation. He needs a MURIEL for better assessment. ----- Message ----- From: Interface, Radiology Results In Sent: 09/15/2024 4:42 PM EST To: Stephen Lou MD [facility] Automated epithelial cells c ount in urine sediment (number/area)Ordered By: Romain Rios on 09-16-2024 Epithelial cells Auto (Urine sed) [#/Area] Automated epithelial cells count in urine sediment (number/area) 0-2 [facility] Automated erythrocytes count in urine sediment (number/area)Ordered By: Romain Rios on 09-16-2024 RBC Auto (Urine sed) [#/Area] Erythrocytes [#/area] in Urine sediment by Automated count High 0-4 [facility] Automated leukocytes count i n urine sediment (number/area)Ordered By: Romain Rios on 09-16-2024 WBC Auto (Urine sed) [#/Area] Leukocytes [#/area] in Urine sediment by Automated count 0-4 [facility] Basic Metabolic Panelon 08-20 Anion gap [Moles/Vol] 15.0 mmol/L Normal 6.0-15.0 [facility] Comment on above: Performed By: #### B ROLL HANDLER, CMP, CBC, HS TROP #### [facility] [address] Calcium [Mass/Vol] 8.5 mg/dL Low 8.6-10.3 [facility] Comment on above: Performed By: #### B ROLL HANDLER, CMP, CBC, HS TROP #### [facility] [address] [place] [id number] [place] Chloride [Moles/Vol] 97 mmol/L Low 98-107 [facility] Comment on above: Performed By: #### B ROLL HANDLER, CMP, CBC, HS TROP #### [facility] [address] [place] [id number] [place] CO2 [Moles/Vol] 26.3 mmol/L Normal 21.0-31.0 [facility] Comment on above: Performed By: #### B ROLL HANDLER, CMP, CBC, HS TROP #### [facility] [address] [place] [address] Creatinine [Mass/Vol] 6.71 mg/dL High 0.70-1.30 [facility] Comment on above: Performed By: #### B ROLL HANDLER, CMP, CBC, HS TROP #### [address] Creatinine Clr Calc Pharmacy 15.05 Normal [facility] Comment on above: Performed By: #### B ROLL HANDLER, CMP, CBC, HS TROP #### [address] Estimated GFR 10.000 mL/Min Normal [facility] Comment on above: Performed By: #### B ROLL HANDLER, CMP, CBC, HS TROP #### [address] Glucose [Mass/Vol] 109 mg/dL High 70-100 [facility] Comment on above: Result Comment: [place] Glucose Reference Range is dependent on time and content of last meal. Glucose of more than 200 mg/dL in a nonstressed, ambulatory subject supports the diagnosis of Diabetes Mellitus. ADA recommended reference range Performed By: #### B ROLL HANDLER, CMP, CBC, HS TROP #### [address] Potassium [Moles/Vol] 5.3 mmol/L High 3.5-5.1 [facility] Comment on above: Performed By: #### B ROLL HANDLER, CMP, CBC, HS TROP #### [address] Sodium [Moles/Vol] 133 mmol/L Low 136-145 [facility] Comment on above: Performed By: #### B ROLL HANDLER, CMP, CBC, HS TROP #### [address] Urea nitrogen [Mass/Vol] 52 mg/dL High 7-25 [facility] Comment on above: Performed By: #### B ROLL HANDLER, CMP, CBC, HS TROP #### [address] Basophils Auto (Bld) [#/Vol] Ordered By: Brigid Anderson on 09-16-2024 Basophils (Bld) [#/Vol] Automated basophil count 0.0-0.2 [facility] Basophils/100 WBC Auto (Bld) Ordered By: Brigid Anderson on 09-16-2024 Basophils/100 WBC (Bld) Automated basophil % . [facility] Bilirubin Test strip Ql (U)O rdered By: Romain Rios on 09-16-2024 Bilirubin Ql (U) Bilirubin.total [Presence] in Urine by Test strip Negative [facility] Calcium [Mass/volume] in Ser um or PlasmaOrdered By: Brigid Anderson on 09-16-2024 Calcium [Mass/Vol] Calcium [Mass/volume ] in Serum or Plasma Low 8.6-10.3 [facility] Carbon dioxide, total [Moles /volume] in Serum or PlasmaOrdered By: Brigid Anderson on 09-16-2024 CO2 [Moles/Vol] Carbon dioxide, tota l [Moles/volume] in Serum or Plasma 21.0-31.0 [facility] Chloride [Moles/volume] in S gretta or PlasmaOrdered By: Brigid Anderson on 09-16-2024 Chloride [Moles/Vol] Chloride [Moles/vol ume] in Serum or Plasma Low 98-107 [facility] Color Auto (U)Ordered By: Dat Rios on 09-16-2024 Color (U) Color of Urine by Auto Yellow Fi [facility] Complete Blood Count Auto Di ffon 09-16-2024 Basophils (Bld) [#/Vol] 0.1 10*3/uL Normal 0.0-0.2 [facility] Comment on above: Result Comment: PERF ORMED BY: [place] [address] PATHOLOGIST SKILLED NURSING PROFESSIONAL CRISTHIAN HUFF M.D. Performed By: #### B ROLL HANDLER, CMP, CBC, HS TROP #### [facility] [address] Basophils/100 WBC (Bld) 2.3 % Normal . [facility] Comment on above: Performed By: #### B ROLL HANDLER, CMP, CBC, HS TROP #### [address] Eosinophils (Bld) [#/Vol] 0.1 10*3/uL Normal 0.0-0.45 [facility] Comment on above: Performed By: #### B ROLL HANDLER, CMP, CBC, HS TROP #### [address] Eosinophils/100 WBC (Bld) 2.2 % Normal . [facility] Comment on above: Performed By: #### B ROLL HANDLER, CMP, CBC, HS TROP #### [address] Erythrocyte distribution width (RBC) [Ratio] 14.5 % Normal 12.0-14.8 [facility] Comment on above: Performed By: #### B ROLL HANDLER, CMP, CBC, HS TROP #### [address] Hematocrit (Bld) [Volume fraction] 25.8 % Low 38.8-50.0 [facility] Comment on above: Performed By: #### B ROLL HANDLER, CMP, CBC, HS TROP #### [address] Hemoglobin (Bld) [Mass/Vol] 8.7 g/dL Low 13.0-17.0 [facility] Comment on above: Performed By: #### B ROLL HANDLER, CMP, CBC, HS TROP #### [address] Lymphocytes (Bld) [#/Vol] 0.5 10*3/uL Low 1.00-4.8 [facility] Comment on above: Performed By: #### B ROLL HANDLER, CMP, CBC, HS TROP #### [address] Lymphocytes/100 WBC (Bld) 18.8 % Normal . [facility] Comment on above: Performed By: #### B ROLL HANDLER, CMP, CBC, HS TROP #### [address] MCH (RBC) [Entitic mass] 29.1 pg Normal 27.5-35.2 [facility] Comment on above: Performed By: #### B ROLL HANDLER, CMP, CBC, HS TROP #### [address] MCV (RBC) [Entitic vol] 86.3 fL Normal 83.5-101 [facility] Comment on above: Performed By: #### B ROLL HANDLER, CMP, CBC, HS TROP #### [address] Mean Corpuscular HGB Conc 33.7 g/dL Normal 32.5-35.6 [facility] Comment on above: Performed By: #### B ROLL HANDLER, CMP, CBC, HS TROP #### [address] Monocytes (Bld) [#/Vol] 0.4 10*3/uL Normal 0.0-0.8 [facility] Comment on above: Performed By: #### B ROLL HANDLER, CMP, CBC, HS TROP #### [address] Monocytes/100 WBC (Bld) 20.52 % High 0.00-20.00 [facility] Comment on above: Result Comment: For adults in ED, MDW > 20.0 may be associated with a higher risk of sepsis during the first 12 hrs of hospital admission Performed By: #### B ROLL HANDLER, CMP, CBC, HS TROP #### [address] Monocytes/100 WBC (Bld) 12.9 % Normal . [facility] Comment on above: Performed By: #### B ROLL HANDLER, CMP, CBC, HS TROP #### [place] [address] [place] Neutrophils (Bld) [#/Vol] 1.8 10*3/uL Normal 1.8-7.7 [facility] Comment on above: Performed By: #### B ROLL HANDLER, CMP, CBC, HS TROP #### [address] Neutrophils/100 WBC (Bld) 63.8 % Normal . [facility] Comment on above: Performed By: #### B ROLL HANDLER, CMP, CBC, HS TROP #### [address] NRBC% 0.1 /100{WBC} Normal 0-0.5 [facility] Comment on above: Performed By: #### B ROLL HANDLER, CMP, CBC, HS TROP #### [address] Platelet mean volume (Bld) [Entitic vol] 7.4 fL Normal 6.6-10.1 [facility] Comment on above: Performed By: #### B ROLL HANDLER, CMP, CBC, HS TROP #### [address] Platelets (Bld) [#/Vol] 108 10*3/uL Low 150-450 [facility] Comment on above: Performed By: #### B ROLL HANDLER, CMP, CBC, HS TROP #### [address] RBC (Bld) [#/Vol] 2.99 10*6/uL Low 3.90-5.60 [facility] Comment on above: Performed By: #### B ROLL HANDLER, CMP, CBC, HS TROP #### [address] WBC (Bld) [#/Vol] 2.9 10*3/uL Low 4.1-10.5 [facility] Comment on above: Performed By: #### B ROLL HANDLER, CMP, CBC, HS TROP #### [address] Creatinine [Mass/volume] in Serum or PlasmaOrdered By: Brigid Anderson on 09-16-2024 Creatinine [Mass/Vol] Creatinine [Mass/v olume] in Serum or Plasma High 0.70-1.30 [facility] Dipstick and Microscopicon 0 09-16-2024 Appearance (U) Cloudy Critically abnormal Clear [facility] [facility] Comment on above: Order Comment: Name Collection Type:: Clean-Voided Midstream Performed By: #### C UBLD, LACTIC, CMP #### [address] Bacteria,Urine None Seen Normal None Seen [facility] Comment on above: Order Comment: Name Collection Type:: Clean-Voided Midstream Performed By: #### C UBLD, LACTIC, CMP #### [address] Bilirubin,Urine Negative Normal Negative [facility] Comment on above: Order Comment: Name Collection Type:: Clean-Voided Midstream Performed By: #### C UBLD, LACTIC, CMP #### [address] Color (U) Yellow Normal Yellow [facility] Comment on above: Order Comment: Name Collection Type:: Clean-Voided Midstream Performed By: #### C UBLD, LACTIC, CMP #### [address] Glucose Ql (U) 250 mg/dL High Normal [facility] Comment on above: Order Comment: Name Collection Type:: Clean-Voided Midstream Performed By: #### C UBLD, LACTIC, CMP #### [address] Hyaline Casts,Urine 0 [LPF] Normal 0-8 [facility] Comment on above: Order Comment: Name Collection Type:: Clean-Voided Midstream Result Comment: PERF ORMED BY: [place] [address] PATHOLOGIST SKILLED NURSING PROFESSIONAL CRISTHIAN HUFF M.D. Performed By: #### C UBLD, LACTIC, CMP #### [place] [address] [place] Ketones Ql (U) Negative Normal Negative [facility] Comment on above: Order Comment: Name Collection Type:: Clean-Voided Midstream Performed By: #### C UBLD, LACTIC, CMP #### [address] Leukocyte esterase Test strip Ql (U) Negative Normal Negative [facility] Comment on above: Order Comment: Name Collection Type:: Clean-Voided Midstream Performed By: #### C UBLD, LACTIC, CMP #### [place] [address] [place] Nitrite,Urine Negative Normal Negative [facility] Comment on above: Order Comment: Name Collection Type:: Clean-Voided Midstream Performed By: #### C UBLD, LACTIC, CMP #### [address] Occult Blood,Urine 1+ High Negative [facility] Comment on above: Order Comment: Name Collection Type:: Clean-Voided Midstream Result Comment: PERF ORMED BY: [place] [address] PATHOLOGIST SKILLED NURSING PROFESSIONAL CRISTHIAN HUFF M.D. Performed By: #### C UBLD, LACTIC, CMP #### [address] pH,Urine >= Normal 5.0-9.0 [facility] Comment on above: Order Comment: Name Collection Type:: Clean-Voided Midstream Performed By: #### C UBLD, LACTIC, CMP #### [address] Protein (U) [Mass/Vol] 300 mg/dL High Negative [facility] Comment on above: Order Comment: Name Collection Type:: Clean-Voided Midstream Performed By: #### C UBLD, LACTIC, CMP #### [place] [address] [place] RBC,Urine 10 [HPF] High 0-4 [facility] Comment on above: Order Comment: Name Collection Type:: Clean-Voided Midstream Performed By: #### C UBLD, LACTIC, CMP #### [place] [address] [place] Specificy Young Harris,Urine 1.012 Normal 1.001-1.030 [facility] Comment on above: Order Comment: Name Collection Type:: Clean-Voided Midstream Performed By: #### C UBLD, LACTIC, CMP #### [address] [place] [address] [place] Squamous Epithelial Cell,Urine 1 [HPF] Normal 0-2 [facility] Comment on above: Order Comment: Name Collection Type:: Clean-Voided Midstream Performed By: #### C UBLD, LACTIC, CMP #### [facility] [address] Urobilinogen,Urine Normal Normal Normal [facility] Comment on above: Order Comment: Name Collection Type:: Clean-Voided Midstream Performed By: #### C UBLD, LACTIC, CMP #### [facility] [address] WBC,Urine 1 [HPF] Normal 0-4 [facility] Comment on above: Order Comment: Name Collection Type:: Clean-Voided Midstream Performed By: #### C UBLD, LACTIC, CMP #### [facility] [address] Eosinophils Auto (Bld) [#/Vo l]Ordered By: Brigid Anderson on 09-16-2024 Eosinophils (Bld) [#/Vol] Automated eosinophil count 0.0-0.45 [facility] Eosinophils/100 WBC Auto (Bl d)Ordered By: Brigid Anderson on 09-16-2024 Eosinophils/100 WBC (Bld) Automated eosinophil % . [facility] Erythrocyte distribution wid th Auto (RBC) [Ratio]Ordered By: Brigid Anderson on 09-16-2024 Erythrocyte distribution width (RBC) [Ratio] Erythrocyte distribution width [Ratio] by Automated count 12.0-14.8 [facility] Glucose Glucometer (BldC) [M ass/Vol]Ordered By: Enrique Kriby on 09-16-2024 Glucose [Mass/Vol] Capillary blood gluc ose measurement by glucometer (mass/volume) [facility] Comment on above: Random Glucose Refer ence Range is dependent on time and content of last meal. Glucose of more than 200 mg/dL in a nonstressed, ambulatory subject supports the diagnosis of Diabetes Mellitus. Glucose Poct Glucometerson 0 09-16-2024 Commemt1 Glu2: Cleaned Meter Normal [facility] Comment on above: Result Comment: PERF ORMED BY: [place] [address] PATHOLOGIST SKILLED NURSING PROFESSIONAL CRISTHIAN HUFF M.D. Performed By: #### C UBLD, LACTIC, CMP #### [address] Glucose [Mass/Vol] 158 mg/dL Normal [facility] Comment on above: Result Comment: [place] om Glucose Reference Range is dependent on time and content of last meal. Glucose of more than 200 mg/dL in a nonstressed, ambulatory subject supports the diagnosis of Diabetes Mellitus. Performed By: #### C UBLD, LACTIC, CMP #### [place] [address] [place] Glucose [Mass/Vol] 151 mg/dL Normal [facility] Comment on above: Result Comment: [place] om Glucose Reference Range is dependent on time and content of last meal. Glucose of more than 200 mg/dL in a nonstressed, ambulatory subject supports the diagnosis of Diabetes Mellitus. PERFORMED BY: [place] [address] PATHOLOGIST SKILLED NURSING PROFESSIONAL CRISTHIAN HUFF M.D. Performed By: #### G LULS #### Point of Care testing , Glucose [Mass/Vol] 151 mg/dL Normal [facility] Comment on above: Result Comment: [place] om Glucose Reference Range is dependent on time and content of last meal. Glucose of more than 200 mg/dL in a nonstressed, ambulatory subject supports the diagnosis of Diabetes Mellitus. PERFORMED BY: [place] [phone] PATHOLOGIST SKILLED NURSING PROFESSIONAL CRISTHIAN HUFF M.D. Performed By: #### B ROLL HANDLER, CMP, CBC, HS TROP #### [place] [address] [place] Glucose [Mass/Vol] 134 mg/dL Normal [facility] Comment on above: Result Comment: [place] om Glucose Reference Range is dependent on time and content of last meal. Glucose of more than 200 mg/dL in a nonstressed, ambulatory subject supports the diagnosis of Diabetes Mellitus. PERFORMED BY: [place] [address] PATHOLOGIST SKILLED NURSING PROFESSIONAL CRISTHIAN HUFF M.D. Performed By: #### B ROLL HANDLER, CMP, CBC, HS TROP #### [address] Glucose [Mass/Vol] 361 mg/dL Normal [facility] Comment on above: Result Comment: [place] om Glucose Reference Range is dependent on time and content of last meal. Glucose of more than 200 mg/dL in a nonstressed, ambulatory subject supports the diagnosis of Diabetes Mellitus. PERFORMED BY: [place] [address] PATHOLOGIST SKILLED NURSING PROFESSIONAL CRISTHIAN HUFF M.D. Performed By: #### B ROLL HANDLER, CMP, CBC, HS TROP #### [address] Glucose [Mass/Vol] 112 mg/dL Normal [facility] Comment on above: Result Comment: [place] om Glucose Reference Range is dependent on time and content of last meal. Glucose of more than 200 mg/dL in a nonstressed, ambulatory subject supports the diagnosis of Diabetes Mellitus. PERFORMED BY: [place] [address] PATHOLOGIST SKILLED NURSING PROFESSIONAL CRISTHIAN HUFF M.D. Performed By: #### C UBLD, LACTIC, CMP #### [place] [address] [place] Commemt1 Normal [facility] Comment on above: Result Comment: Glu2 : WILL NOTIFY DR/RN Performed By: #### B ROLL HANDLER, CMP, CBC, HS TROP #### [place] [address] [place] Commemt2 Cleaned Meter Normal [facility] Comment on above: Result Comment: PERF ORMED BY: [place] [address] PATHOLOGIST SKILLED NURSING PROFESSIONAL CRISTHIAN HUFF M.D. Performed By: #### B ROLL HANDLER, CMP, CBC, HS TROP #### [facility] [address] [place] [address] [place] Glucose [Mass/Vol] 104 mg/dL Normal [facility] Comment on above: Result Comment: [place] om Glucose Reference Range is dependent on time and content of last meal. Glucose of more than 200 mg/dL in a nonstressed, ambulatory subject supports the diagnosis of Diabetes Mellitus. Performed By: #### B ROLL HANDLER, CMP, CBC, HS TROP #### [facility] [address] [place] [id number] [place] Glucose [Mass/volume] in Ser um or PlasmaOrdered By: Brigid Anderson on 09-16-2024 Glucose [Mass/Vol] Glucose [Mass/volume ] in Serum or Plasma High 70-100 [facility] Comment on above: ADA recommended refe rence rangeRandom Glucose Reference Range is dependent on time and content of last meal. Glucose of more than 200 mg/dL in a nonstressed, ambulatory subject supports the diagnosis of Diabetes Mellitus. Hematocrit Auto (Bld) [Volum e fraction]Ordered By: Brigid Anderson on 09-16-2024 Hematocrit (Bld) [Volume fraction] Hematocrit [Volume Fraction] of Blood by Automated count Low 38.8-50.0 [facility] Hemoglobin [Mass/volume] in BloodOrdered By: Brigid Anderson on 09-16-2024 Hemoglobin (Bld) [Mass/Vol] Hemoglobin [Mass/volume] in Blood Low 13.0-17.0 [facility] Ketones Auto test strip (U) [Mass/Vol]Ordered By: Romain Rios on 09-16-2024 Ketones (U) [Mass/Vol] Urine ketones measurement by automated test strip (mass/volume) Negative [facility] - UrinalysisOrder ed By: Romain Rios on 09-16-2024 Hyaline casts LM Ql (Urine sed) 0-8 [LPF] 0-8 [facility] Leukocytes [#/volume] correc celena for nucleated erythrocytes in Blood by Automated counOrdered By: Brigid Anderson on 09-16-2024 WBC corrected for nucl RBC Auto (Bld) [#/Vol] Leukocytes [#/volume] corrected for nucleated erythrocytes in Blood by Automated coun Low 4.1-10.5 [facility] Lymphocytes Auto (Bld) [#/Vo l]Ordered By: Brigid Anderson on 09-16-2024 Lymphocytes (Bld) [#/Vol] Lymphocytes [#/volume] in Blood by Automated count Low 1.00-4.8 [facility] Lymphocytes/100 WBC Auto (Bl d)Ordered By: Brigid Anderson on 09-16-2024 Lymphocytes/100 WBC (Bld) Lymphocytes/100 leukocytes in Blood by Automated count . [facility] MCH Auto (RBC) [Entitic mass ]Ordered By: Brigid Anderson on 09-16-2024 MCH (RBC) [Entitic mass] MCH [Entitic mass] by Automated count 27.5-35.2 [facility] MCHC Auto (RBC) [Mass/Vol]Or dered By: Brigid Anderson on 09-16-2024 MCHC (RBC) [Mass/Vol] MCHC [Mass/volume] by Automated count 32.5-35.6 [facility] MCV Auto (RBC) [Entitic vol] Ordered By: Brigid Anderson on 09-16-2024 MCV (RBC) [Entitic vol] MCV [Entitic vol ume] by Automated count 83.5-101 [facility] Magnesiumon 09-16-2024 Magnesium [Mass/Vol] 2.2 mg/dL Normal 1.9-2.7 [facility] Comment on above: Result Comment: PERF ORMED BY: [place] [address] PATHOLOGIST SKILLED NURSING PROFESSIONAL CRISTHIAN HUFF M.D. Performed By: #### B ROLL HANDLER, CMP, CBC, HS TROP #### [address] Magnesium [Mass/volume] in S gretta or PlasmaOrdered By: Brigid Anderson on 09-16-2024 Magnesium [Mass/Vol] Magnesium [Mass/vol ume] in Serum or Plasma 1.9-2.7 [facility] Monocyte distribution width [Entitic volume] in Blood by AutomatedOrdered By: Brigid Anderson on 09-16-2024 Monocyte distribution width Auto (Bld) [Entitic vol] Monocyte distribution width [Entitic volume] in Blood by Automated High 0.00-20.00 [facility] Comment on above: For adults in ED, MD W > 20.0 may be associated with a higher risk of sepsis during the first 12 hrs of hospital admission Monocytes Auto (Bld) [#/Vol] Ordered By: Brigid Anderson on 09-16-2024 Monocytes (Bld) [#/Vol] Automated blood monocyte count 0.0-0.8 [facility] Monocytes/100 WBC Auto (Bld) Ordered By: Brigid Anderson on 09-16-2024 Monocytes/100 WBC (Bld) Automated monocyte % . [facility] Neutrophils Auto (Bld) [#/Vo l]Ordered By: Brigid Anderson on 09-16-2024 Neutrophils (Bld) [#/Vol] Neutrophils [#/volume] in Blood by Automated count 1.8-7.7 [facility] Neutrophils/100 WBC Auto (Bl d)Ordered By: Brigid Anderson on 09-16-2024 Neutrophils/100 WBC (Bld) Automated neutrophil % . [facility] Nitrite Test strip Ql (U)Ord ered By: Romain Rios on 09-16-2024 Nitrite Ql (U) Nitrite [Presence] i n Urine by Test strip Negative [facility] No Panel InformationOrdered By: Romain Rios on 09-16-2024 0-8 [LPF] 0-8 [facility] No Panel InformationOrdered By: Julio Allen on 09-16-2024 Bedside Glucose #2 Comment Cleaned meter [facility] Bedside Glucose Comment See comment [facility] Comment on above: Glu2: WILL NOTIFY DR /RN No Panel InformationOrdered By: Brigid Anderson on 09-16-2024 Estimated GFR (CKD-EPI) 10.000 mL/Min [facility] Creatinine Clearance (Chem 15.05 [facility] Nucleated erythrocytes [Pres ence] in Blood by Automated countOrdered By: Brigid Anderson on 09-16-2024 Nucleated RBC Auto Ql (Bld) Nucleated erythrocytes [Presence] in Blood by Automated count 0-0.5 [facility] Platelet mean volume Auto (B ld) [Entitic vol]Ordered By: Brigid Anderson on 09-16-2024 Platelet mean volume (Bld) [Entitic vol] Platelet mean volume [Entitic volume] in Blood by Automated count 6.6-10.1 [facility] Platelets Auto (Bld) [#/Vol] Ordered By: Brigid Anderson on 09-16-2024 Platelets (Bld) [#/Vol] Platelets [#/vol ume] in Blood by Automated count Low 150-450 [facility] Potassium [Moles/volume] in Serum or PlasmaOrdered By: Brigid Anderson on 09-16-2024 Potassium [Moles/Vol] Potassium [Moles/v olume] in Serum or Plasma High 3.5-5.1 [facility] Protein Auto test strip (U) [Mass/Vol]Ordered By: Romain Rios on 09-16-2024 Protein (U) [Mass/Vol] Urine protein measurement by automated test strip (mass/volume) High Negative [facility] RBC Auto (Bld) [#/Vol]Ordere d By: Brigid Anderson on 09-16-2024 RBC (Bld) [#/Vol] Erythrocytes [#/volu me] in Blood by Automated count Low 3.90-5.60 [facility] Serum or plasma anion gap de terminationOrdered By: Brigid Anderson on 09-16-2024 Anion gap [Moles/Vol] Serum or plasma an ion gap determination 6.0-15.0 [facility] Sodium [Moles/volume] in Ser um or PlasmaOrdered By: Brigid Anderson on 09-16-2024 Sodium [Moles/Vol] Sodium [Moles/volume ] in Serum or Plasma Low 136-145 [facility] Specific gravity Auto test s trip (U) [Rel density]Ordered By: Romain Rios on 09-16-2024 Specific gravity (U) [Rel density] Specific gravity of Urine by Automated test strip 1.001-1.030 [facility] Urea nitrogen [Mass/volume] in Serum or PlasmaOrdered By: Brigid Anderson on 09-16-2024 Urea nitrogen [Mass/Vol] Urea nitrogen [Mass/volume] in Serum or Plasma High 7-25 [facility] Urine bacteria detection by automated methodOrdered By: Romain Rios on 09-16-2024 Bacteria Auto Ql (U) Bacteria [Presence] in Urine by Automated None Seen [facility] Urine clarity by refractomet ry automatedOrdered By: Romain Rios on 09-16-2024 Clarity Refractometry automated (U) Urine clarity by refractometry automated Abnormal Clear [facility] Urine glucose measurement by automated test strip (mass/volume)Ordered By: Romain Rios on 09-16-2024 Glucose Auto test strip (U) [Mass/Vol] Urine glucose measurement by automated test strip (mass/volume) High Normal [facility] Urine hemoglobin detection b y automated test stripOrdered By: Romain Rios on 09-16-2024 Hemoglobin Auto test strip Ql (U) Urine hemoglobin detection by automated test strip High Negative [facility] Urine leukocyte esterase det ection by automated test stripOrdered By: Romain Rios on 09-16-2024 Leukocyte esterase Auto test strip Ql (U) Urine leukocyte esterase detection by automated test strip Negative [facility] Urobilinogen Auto test strip (U) [Mass/Vol]Ordered By: Romain Rios on 09-16-2024 Urobilinogen (U) [Mass/Vol] Urine urobilinogen measurement by automated test strip (mass/volume) Normal [facility] WBC Auto (Bld) [#/Vol]Ordere d By: Brigid Anderson on 09-16-2024 WBC (Bld) [#/Vol] Leukocytes [#/volume ] in Blood by Automated count Low 4.1-10.5 [facility] pH Auto test strip (U)Ordere d By: Romain Rios on 09-16-2024 pH (U) Urine pH measurement by automated test strip 5.0-9.0 [facility] Alanine aminotransferase [En zymatic activity/volume] in Serum or PlasmaOrdered By: Tenzin Ortiz on 09-15-2024 ALT [Catalytic activity/Vol] Alanine aminotransferase [Enzymatic activity/volume] in Serum or Plasma [facility] Albumin [Mass/volume] in Ser um or Plasma by Bromocresol green (BCG) dye binding methoOrdered By: Tenzin Ortiz on 09-15-2024 Albumin BCG dye [Mass/Vol] Albumin [Mass/volume] in Serum or Plasma by Bromocresol green (BCG) dye binding metho 3.5-5.7 [facility] Alkaline phosphatase [Enzyma tic activity/volume] in Serum or PlasmaOrdered By: Tenzin Ortiz on 09-15-2024 ALP [Catalytic activity/Vol] Alkaline phosphatase [Enzymatic activity/volume] in Serum or Plasma 34-104 [facility] Aspartate aminotransferase [ Enzymatic activity/volume] in Serum or PlasmaOrdered By: Tenzin Ortiz on 09-15-2024 AST [Catalytic activity/Vol] Aspartate aminotransferase [Enzymatic activity/volume] in Serum or Plasma 13-39 [facility] Bilirubin.total [Mass/volume ] in Serum or PlasmaOrdered By: Tenzin Ortiz on 09-15-2024 Bilirubin [Mass/Vol] Bilirubin.total [Mass/volume] in Serum or Plasma 0.3-1.0 [facility] Blood Cultureon 09-15-2024 Bacteria identified Cx Nom (Bld) NO GROWTH 5 DAYS PERFORMED BY: [place] [address] PATHOLOGIST SKILLED NURSING PROFESSIONAL CRISTHIAN HUFF M.D. Normal [facility] Comment on above: Performed By: #### C UBLD, LACTIC, CMP #### [facility] [address] [place] [address] Bacteria identified Cx Nom (Bld) NO GROWTH 5 DAYS PERFORMED BY: [place] [address] PATHOLOGIST SKILLED NURSING PROFESSIONAL CRISTHIAN HUFF M.D. Normal [facility] Comment on above: Performed By: #### C UBLD, LACTIC, CMP #### [facility] [address] [place] [address] COVID CepheidOrdered By: Praful Rios on 09-15-2024 SARS-CoV-2 (COVID-19) Ab IA Ql COVID Cepheid Abnormal Negative [facility] Comment on above: This is a duplicate Cepheid Xpert Xpress CoV-2/Flu/RSV Plus RNA by RT-PCR result to be used for statistical tracking purpose only. SARS-CoV-2 (COVID-19) RNA HAO+probe Ql (Unsp spec) COVID Cepheid Abnormal Negative [facility] COVID-19 / Flu A/B / RSV PCR on 09-15-2024 SARS-CoV-2 (COVID-19) RNA HAO+probe Ql (Unsp spec) COVID-19 Cepheid Result Positive for SARS-CoV-2 RNA by RT-PCR Flu A Cepheid Result Negative for Flu A RNA by RT-PCR Flu B Cepheid Result Negative for Flu B RNA by RT-PCR RSV Cepheid Result Negative for RSV RNA by RT-PCR COVID19 Blank Space ------ Reference: Negative COVID19 Blank Space ------ Cepheid Disclaimer The Cepheid Xpert Xpress CoV-2/Flu/RSV Plus has Cepheid Disclaimer not been FDA cleared or approved; this test has Cepheid Disclaimer been authorized by FDA under an EUA for use by Cepheid Disclaimer authorized laboratories; this test has been Cepheid Disclaimer authorized only for the simultaneous qualitative Cepheid Disclaimer detection and differentiation of nucleic acids from Cepheid Disclaimer SARS-CoV-2, influenza A, influenza B, and Cepheid Disclaimer respiratory syncytial virus (RSV), and not for any Cepheid Disclaimer other viruses or pathogens; and this test is only Cepheid Disclaimer authorized for the duration of the declaration that Cepheid Disclaimer circumstances exist justifying the authorization of Cepheid Disclaimer emergency use of in vitro diagnostic tests for Cepheid Disclaimer detection and/or diagnosis of COVID-19 under Cepheid Disclaimer Section 564(b)(1) of the Act, 21 U.S.C. 360bbb- Cepheid Disclaimer 3(b)(1), unless the authorization is terminated or Cepheid Disclaimer revoked sooner. PERFORMED BY: [facility] [place] [id number] PATHOLOGIST SKILLED NURSING PROFESSIONAL CRISTHIAN HUFF M.D. [facility] Comment on above: Performed By: #### G LULS #### Point of Care testing , CT abdomen pelvis w conon CT abdomen pelvis w con [facility] [place] [id number] CT Scan Report Signed Patient: Yoel Werner MR#: [id number] : 1985 Acct:[id number] Age/Sex: 39 / M ADM Date: 09/15/24 Loc: ER Room: Type: [facility] ER Attending Dr: Copies to: Romain Rios DO Ordering Provider: Romain Rios DO Date of Service: 09/15/24 CT/CT abdomen pelvis w con: r/o appendictis CT Abdomen and Pelvis withcontrast TECHNIQUE: Axial imaging with 2-D reconstruction.90 Cc [id number]. The CT exam was performed using one or more the following dose reduction techniques: Automated exposure control, adjustment of the MA and/or Kv according to patient size, or use of the iterative reconstruction technique. COMPARISON: 10/15/2023 History: Abdominal pain. Nausea and vomiting. LIMITATIONS: None LOWER THORAX and basilar atelectasis LIVER: Unremarkable GALLBLADDER: No gallbladder abnormality identified. BILE DUCTS: No dilatation SPLEEN: Unremarkable PANCREAS: Unremarkable ADRENAL GLANDS: Unremarkable KIDNEYS:Unremarkable AORTA: No abdominal aortic aneurysm identified. Marked atherosclerosis RETROPERITONEUM: No significant retroperitoneal abnormalities identified. MESENTERY:Unremarkable SMALL BOWEL: The small bowel loops are nondistended. APPENDIX: The appendix is normal. COLON: Marked constipation URINARY BLADDER: Urinary bladder is unremarkable. REPRODUCTIVE SYSTEM: Reproductive structures are unremarkable. PNEUMOPERITONEUM: None PERITONEAL FLUID:None BONY STRUCTURES: Unremarkable ABDOMINAL WALL: Unremarkable CT/CT abdomen pelvis w con IMPRESSION: No bowel obstruction. Mild constipation. Impression dictated by: Alec Flynn M.D.09/15/2024 11:16 PM Dictation Location: [facility]- Transcribed By: [facility] 09/15/242315 Dictated By: Alec Flynn DO 01/28/25 2312 Signed By: 09/15/24 2316 Normal [facility] Cepheid COVID PCR Positiveon 09-15-2024 SARS-CoV-2 (COVID-19) RNA HAO+probe Ql (Unsp spec) Positive Critically abnormal Negative [facility] Comment on above: Result Comment: This is a duplicate Cepheid Xpert Xpress CoV-2/Flu/RSV Plus RNA by RT-PCR result to be used for statistical tracking purpose only. PERFORMED BY: [place] [address] PATHOLOGIST SKILLED NURSING PROFESSIONAL CRISTHIAN HUFF M.D. Performed By: #### G LULS #### Point of Care testing , Complete Blood Count Auto Di ffon 09-15-2024 Basophils (Bld) [#/Vol] 0.0 10*3/uL Normal 0.0-0.2 [facility] Comment on above: Result Comment: PERF ORMED BY: [place] [address] PATHOLOGIST SKILLED NURSING PROFESSIONAL CRISTHIAN HUFF M.D. Performed By: #### B ROLL HANDLER, CMP, CBC, HS TROP #### [address] Basophils/100 WBC (Bld) 1.4 % Normal . T julianna [facility] Comment on above: Performed By: #### B ROLL HANDLER, CMP, CBC, HS TROP #### [place] [address] [place] Eosinophils (Bld) [#/Vol] 0.1 10*3/uL Normal 0.0-0.45 [facility] Comment on above: Performed By: #### B ROLL HANDLER, CMP, CBC, HS TROP #### [place] [address] [place] Eosinophils/100 WBC (Bld) 1.8 % Normal . [facility] Comment on above: Performed By: #### B ROLL HANDLER, CMP, CBC, HS TROP #### [address] Erythrocyte distribution width (RBC) [Ratio] 14.0 % Normal 12.0-14.8 [facility] Comment on above: Performed By: #### B ROLL HANDLER, CMP, CBC, HS TROP #### [address] Hematocrit (Bld) [Volume fraction] 28.2 % Low 38.8-50.0 [facility] Comment on above: Performed By: #### B ROLL HANDLER, CMP, CBC, HS TROP #### [address] Hemoglobin (Bld) [Mass/Vol] 9.5 g/dL Low 13.0-17.0 [facility] Comment on above: Performed By: #### B ROLL HANDLER, CMP, CBC, HS TROP #### [address] Lymphocytes (Bld) [#/Vol] 0.4 10*3/uL Low 1.00-4.8 [facility] Comment on above: Performed By: #### B ROLL HANDLER, CMP, CBC, HS TROP #### [address] Lymphocytes/100 WBC (Bld) 11.0 % Normal . [facility] Comment on above: Performed By: #### B ROLL HANDLER, CMP, CBC, HS TROP #### [address] MCH (RBC) [Entitic mass] 29.0 pg Normal 27.5-35.2 [facility] Comment on above: Performed By: #### B ROLL HANDLER, CMP, CBC, HS TROP #### [address] MCV (RBC) [Entitic vol] 86.1 fL Normal 83.5-101 T [facility] Comment on above: Performed By: #### B ROLL HANDLER, CMP, CBC, HS TROP #### [address] Mean Corpuscular HGB Conc 33.6 g/dL Normal 32.5-35.6 [facility] Comment on above: Performed By: #### B ROLL HANDLER, CMP, CBC, HS TROP #### [place] [address] [place] Monocytes (Bld) [#/Vol] 0.4 10*3/uL Normal 0.0-0.8 [facility] Comment on above: Performed By: #### B ROLL HANDLER, CMP, CBC, HS TROP #### [place] [address] [place] Monocytes/100 WBC (Bld) 20.91 % High 0.00-20.00 [facility] Comment on above: Result Comment: For adults in ED, MDW > 20.0 may be associated with a higher risk of sepsis during the first 12 hrs of hospital admission Performed By: #### B ROLL HANDLER, CMP, CBC, HS TROP #### [address] Monocytes/100 WBC (Bld) 10.9 % Normal . [facility] Comment on above: Performed By: #### B ROLL HANDLER, CMP, CBC, HS TROP #### [address] Neutrophils (Bld) [#/Vol] 2.6 10*3/uL Normal 1.8-7.7 [facility] Comment on above: Performed By: #### B ROLL HANDLER, CMP, CBC, HS TROP #### [place] [address] [place] Neutrophils/100 WBC (Bld) 74.9 % Normal . [facility] Comment on above: Performed By: #### B ROLL HANDLER, CMP, CBC, HS TROP #### [place] [address] [place] NRBC% 0.1 /100{WBC} Normal 0-0.5 [facility] Comment on above: Performed By: #### B ROLL HANDLER, CMP, CBC, HS TROP #### [address] Platelet mean volume (Bld) [Entitic vol] 7.5 fL Normal 6.6-10.1 [facility] Comment on above: Performed By: #### B ROLL HANDLER, CMP, CBC, HS TROP #### [address] Platelets (Bld) [#/Vol] 113 10*3/uL Low 150-450 [facility] Comment on above: Performed By: #### B ROLL HANDLER, CMP, CBC, HS TROP #### [address] RBC (Bld) [#/Vol] 3.28 10*6/uL Low 3.90-5.60 [facility] Comment on above: Performed By: #### B ROLL HANDLER, CMP, CBC, HS TROP #### [address] WBC (Bld) [#/Vol] 3.5 10*3/uL Low 4.1-10.5 [facility] Comment on above: Performed By: #### B ROLL HANDLER, CMP, CBC, HS TROP #### [address] Comprehensive Metabolic Pane elvin 09-15-2024 Albumin [Mass/Vol] 4.0 g/dL Normal 3.5-5.7 [facility] Comment on above: Performed By: #### C UBLD, LACTIC, CMP #### [address] Albumin/Globulin [Mass ratio] 1.4 {ratio} Normal [facility] Comment on above: Performed By: #### C UBLD, LACTIC, CMP #### [address] ALP [Catalytic activity/Vol] 55 U/L Normal 34-104 [facility] Comment on above: Performed By: #### C UBLD, LACTIC, CMP #### [address] ALT [Catalytic activity/Vol] 19 U/L Normal 7-52 [facility] Comment on above: Performed By: #### C UBLD, LACTIC, CMP #### [address] Anion gap [Moles/Vol] 16.5 mmol/L High 6.0-15.0 Th e [facility] Comment on above: Performed By: #### C UBLD, LACTIC, CMP #### [facility] [address] AST [Catalytic activity/Vol] 26 U/L Normal 13-39 [facility] Comment on above: Performed By: #### C UBLD, LACTIC, CMP #### [facility] [address] Bilirubin [Mass/Vol] 0.6 mg/dL Normal 0.3-1.0 [facility] Comment on above: Performed By: #### C UBLD, LACTIC, CMP #### [facility] [address] Calcium [Mass/Vol] 9.0 mg/dL Normal 8.6-10.3 [facility] Comment on above: Performed By: #### C UBLD, LACTIC, CMP #### [place] [address] [place] Chloride [Moles/Vol] 96 mmol/L Low 98-107 [facility] Comment on above: Performed By: #### C UBLD, LACTIC, CMP #### [address] CO2 [Moles/Vol] 25.2 mmol/L Normal 21.0-31.0 [facility] Comment on above: Performed By: #### C UBLD, LACTIC, CMP #### [place] [address] [place] Creatinine [Mass/Vol] 6.29 mg/dL High 0.70-1.30 [facility] Comment on above: Performed By: #### C UBLD, LACTIC, CMP #### [place] [address] [place] Creatinine Clr Calc Pharmacy 16.06 Normal [facility] Comment on above: Result Comment: PERF ORMED BY: [place] [address] PATHOLOGIST SKILLED NURSING PROFESSIONAL CRISTHIAN HUFF M.D. Performed By: #### C UBLD, LACTIC, CMP #### [address] Estimated GFR 10.806 mL/Min Normal [facility] Comment on above: Performed By: #### C UBLD, LACTIC, CMP #### [address] Globulin (S) [Mass/Vol] 2.9 g/dL Normal T [facility] Comment on above: Performed By: #### C UBLD, LACTIC, CMP #### [address] Glucose [Mass/Vol] 161 mg/dL High 70-100 [facility] Comment on above: Result Comment: [place] Glucose Reference Range is dependent on time and content of last meal. Glucose of more than 200 mg/dL in a nonstressed, ambulatory subject supports the diagnosis of Diabetes Mellitus. ADA recommended reference range Performed By: #### C UBLD, LACTIC, CMP #### [address] Potassium [Moles/Vol] 5.7 mmol/L High 3.5-5.1 [facility] Comment on above: Performed By: #### C UBLD, LACTIC, CMP #### [address] Protein [Mass/Vol] 6.9 g/dL Normal 6.4-8.9 [facility] Comment on above: Performed By: #### C UBLD, LACTIC, CMP #### [address] Sodium [Moles/Vol] 132 mmol/L Low 136-145 [facility] Comment on above: Performed By: #### C UBLD, LACTIC, CMP #### [address] Urea nitrogen [Mass/Vol] 49 mg/dL High 7-25 [facility] Comment on above: Performed By: #### C UBLD, LACTIC, CMP #### [address] ECG 12 lead ECGon 09-15-2024 ECG 12 lead ECG [facility] Main [address] [address] Electrocardiograph Report Signed Patient: Yoel Werner MR#: [id number] : 1985 Acct:[id number] Age/Sex: 39 / M ADM Date: 09/15/24 Loc: ER Room: Type: [facility] ER Attending Dr: Ordering Provider: Romain Rios DO Date of Service: 09/15/24 ECG/ECG 12 lead ECG: Abdominal Pain Copies to: Test Reason : Blood Pressure : */* mmHG Vent. Rate : 88 BPM Atrial Rate : 88 BPM P-R Int : 170 ms QRS Dur : 84 ms QT Int : 360 ms P-R-T Axes : 65 25 69 degrees QTcB Int : 435 ms Normal sinus rhythm Nonspecific T wave abnormality Confirmed by Romain Rios DO ([id number]) on 09/16/2024 1:12:17 AM Referred By: Electronically Signed By: Romain Rios DO Transcribed By: MUS Signed By Romain Rios DO 0112 Normal [facility] ECG 12 lead ECG [facility] Main [address] [address] Electrocardiograph Report Signed Patient: Yoel Werner MR#: [id number] : 1985 Acct:[id number] Age/Sex: 39 / M ADM Date: 09/15/24 Loc: ER Room: Type: [facility] ER Attending Dr: Ordering Provider: Romain Rios DO Date of Service: 09/15/24 ECG/ECG 12 lead ECG: Abdominal Pain Copies to: Test Reason : Blood Pressure : 182/81 mmHG Vent. Rate : 86 BPM Atrial Rate : 86 BPM P-R Int : 164 ms QRS Dur : 102 ms QT Int : 368 ms P-R-T Axes : 63 61 38 degrees QTcB Int : 440 ms Normal sinus rhythm nonspecific st findings Confirmed by Romain Rios DO ([id number]) on 09/16/2024 1:14:24 AM Referred By: Electronically Signed By: Romain Rios DO Transcribed By: MUS Signed By Romain Rios DO 0114 Normal [facility] Globulin Calc (S) [Mass/Vol] Ordered By: Tenzin Ortiz on 09-15-2024 Globulin (S) [Mass/Vol] Serum globulin measurement by calculation (mass/volume) [facility] Glucose Poct Glucometerson 0 09-15-2024 Glucose [Mass/Vol] 158 mg/dL Normal [facility] Comment on above: Result Comment: [place] om Glucose Reference Range is dependent on time and content of last meal. Glucose of more than 200 mg/dL in a nonstressed, ambulatory subject supports the diagnosis of Diabetes Mellitus. PERFORMED BY: [place] [address] PATHOLOGIST SKILLED NURSING PROFESSIONAL CRISTHIAN HUFF M.D. Performed By: #### B ROLL HANDLER, CMP, CBC, HS TROP #### [place] [address] [place] Commemt1 Normal [facility] Comment on above: Result Comment: Glu2 : WILL NOTIFY DR/RN Performed By: #### B ROLL HANDLER, CMP, CBC, HS TROP #### [place] [id number] [place] Commemt2 Cleaned Meter Normal [facility] Comment on above: Result Comment: PERF ORMED BY: [place] [address] PATHOLOGIST SKILLED NURSING PROFESSIONAL CRISTHIAN HUFF M.D. Performed By: #### B ROLL HANDLER, CMP, CBC, HS TROP #### [place] [id number] [facility] Glucose [Mass/Vol] 130 mg/dL Normal [facility] Comment on above: Result Comment: [place] om Glucose Reference Range is dependent on time and content of last meal. Glucose of more than 200 mg/dL in a nonstressed, ambulatory subject supports the diagnosis of Diabetes Mellitus. Performed By: #### B ROLL HANDLER, CMP, CBC, HS TROP #### [facility] [address] [place], [place] [id number] [facility] Laboratory - Microbiology an d Antimicrobial susceptibilityOrdered By: Tenzin Ortiz on 09-15-2024 Bacteria identified Cx Nom (Bld) NO GROWTH 5 DAYS [facility] Bacteria identified Cx Nom (Bld) NO GROWTH 5 DAYS [facility] Bacteria identified Cx Nom (Bld) NO GROWTH 5 DAYS [facility] Bacteria identified Cx Nom (Bld) NO GROWTH 5 DAYS [facility] Lactate [Moles/volume] in Se rum or PlasmaOrdered By: Romain Rios on 09-15-2024 Lactate [Moles/Vol] Lactate [Moles/volum e] in Serum or Plasma 0.5-1.9 [facility] Comment on above: Lactic Acid referenc e range has been updated to 0.5 1.9 mmol/L and the critical range of 2.0 or greater. Lactic Acidon 09-15-2024 Lactate [Moles/Vol] 0.6 mmol/L Normal 0.5-1.9 [facility] Comment on above: Result Comment: Lact ic Acid reference range has been updated to 0.5 ? 1.9 mmol/L and the critical range of 2.0 or greater. PERFORMED BY: [place] [address] PATHOLOGIST SKILLED NURSING PROFESSIONAL CRISTHIAN HUFF M.D. Performed By: #### L ACTIC #### [facility] [address] [place] [address] Lactate [Moles/Vol] 0.6 mmol/L Normal 0.5-1.9 [facility] Comment on above: Result Comment: Lact ic Acid reference range has been updated to 0.5 ? 1.9 mmol/L and the critical range of 2.0 or greater. PERFORMED BY: [place] [address] PATHOLOGIST SKILLED NURSING PROFESSIONAL CRISTHIAN HUFF M.D. Performed By: #### C UBLD, LACTIC, CMP #### [facility] [address] [place] [address] Protein [Mass/volume] in Ser um or PlasmaOrdered By: Tenzin Ortiz on 09-15-2024 Protein [Mass/Vol] Protein [Mass/volume ] in Serum or Plasma 6.4-8.9 [facility] Respiratory specimen influen za A virus, influenza B virus, respiratory syncytical virOrdered By: Romain Rios on 09-15-2024 SARS-CoV-2 (COVID-19) RNA HAO+probe Ql (Unsp spec) Respiratory specimen influenza A virus, influenza B virus, respiratory syncytical vir [facility] SARS-CoV-2 (COVID-19) RNA HAO+probe Ql (Unsp spec) Respiratory specimen influenza A virus, influenza B virus, respiratory syncytical vir [facility] Serum or plasma albumin/glob ulin mass ratioOrdered By: Tenzin Ortiz on 09-15-2024 Albumin/Globulin [Mass ratio] Serum or plasma albumin/globulin mass ratio [facility] X-ray reportOrdered By: Ambrosio Flynn on 09-15-2024 Study report [facility] [place] [address] XRay Report Signed Patient: Yoel Werner MR#: [id number] : 1985 Acct:[id number] Age/Sex: 39 / M ADM Date: 5 Loc: ER Room: Type: PRE ER Attending Dr: Copies to: TEMP, PROVIDER Tenzin Ortiz Jr, MD~ Ordering Provider: Tenzin Ortiz Jr, MD Date of Service: 09/15/24 XR/XR chest 2V*: Abdominal Pain Plain film chest 2 view HISTORY: Nausea and vomiting. Low blood sugar. COMPARISON: 08/17/2024 FINDINGS: SUPPORT DEVICES: None POSTSURGICAL CHANGES: None HEART: Within normal limits PULMONARY NATALY: Within normal limits MEDIASTINUM: Unremarkable LUNGS AND PLEURA: Focal left basilar atelectasis/infiltrate. BONY STRUCTURES: Intact ADDITIONAL FINDINGS None XR/XR chest 2V* IMPRESSION: Focal left basilar atelectasis/infiltrate Impression dictated by: Alec Flynn M.D.09/15/2024 10:19 PM Dictation Location: [place] [address] Transcribed By: [facility] 09/15/242218 Dictated By: Alec Flynn DO 09/15/242215 Signed By: 09/15/242218 [facility] Study report [facility] XR chest 2V*on 09-15-2024 XR chest 2V* [facility] Main [place] [address] [place] [address] XRay Report Signed Patient: Yoel Werner MR#: [id number] : 1985 Acct:[id number] Age/Sex: 39 / M ADM Date: 09/15/24 Loc: ER Room: Type: PRE ER Attending Dr: Copies to: JAKE, PROVIDER Tenzin Ortiz Jr, MD Ordering Provider: Tenzin Ortiz Jr, MD Date of Service: 09/15/24 XR/XR chest 2V*: Abdominal Pain Plain film chest 2 view HISTORY: Nausea and vomiting. Low blood sugar. COMPARISON: 08/17/2024 FINDINGS: SUPPORT DEVICES: None POSTSURGICAL CHANGES: None HEART: Within normal limits PULMONARY NATALY: Within normal limits MEDIASTINUM: Unremarkable LUNGS AND PLEURA: Focal left basilar atelectasis/infiltrate. BONY STRUCTURES: Intact ADDITIONAL FINDINGS None XR/XR chest 2V* IMPRESSION: Focal left basilar atelectasis/infiltrate Impression dictated by: Alec Flynn M.D.09/15/2024 10:19 PM Dictation Location: [id number] Transcribed By: [facility] 09/15/242218 Dictated By: Alec Flynn DO 09/15/242215 Signed By: 09/15/242218 Normal [facility] ABO/RHon 09-08-2024 ABO group Nom (Bld) A Normal [facility] Comment on above: Performed By: #### L [id number] #### [facility] TISSUE TYPING (HISTOTRAC) [address] [place] [address] [facility] RH TYPE IN BLOOD Positive Normal [facility] Comment on above: Performed By: #### L [id number] #### [facility] TISSUE TYPING (HISTOTRAC) [address] [place] [address] [place] Lab[place] 09-08-2024 Lab [id number] Yoel Werner 1985 M Date Provider Department Center 09/08/2024 2245-[facility] OPD LAB RESOURCE [facility]PD [place] Medical C Family History Problem Relation Age of Onset Pancreatic cancer Mother Diabetes Mother Liver disease Mother Hypertension Father Irritable bowel syndrome Father Stroke Father Coronary artery disease Brother 55 Lung cancer Paternal Grandmother Coronary artery disease Paternal Grandfather Family Status - Relation Status Age at Mother Father Alive Brother Paternal Grandmother Paternal Grandfather Normal [facility] PANEL REACTIVE ANTIBODYon HOLD SPECIMEN Hold for add-ons. Normal [facility] Comment on above: Result Comment: Auto resulted. Performed By: #### L [id number] #### [facility] [address] [place] [address] SINGLE ANTIGEN CLASS Ion AB SCREEN COMMENTS Potential specificit es added to the watch list. Normal [facility] Comment on above: Performed By: #### L [id number] #### [facility] TISSUE TYPING (HISTOTRAC) [address] [place] [address] [place] CLASS I LOW RISK AB A:24 Normal [facility] Comment on above: Performed By: #### L [id number] #### [facility] TISSUE TYPING (HISTOTRAC) [address] [place] [address] [place] CLASS I TESTED DATE Normal [facility] Comment on above: Performed By: #### L [id number] #### [facility] TISSUE TYPING (HISTOTRAC) [address] [place] [address] [place] SINGLE ANTIGEN CLASS 1 TEST METHOD Class I Single Antigen Normal [facility] Comment on above: Performed By: #### L [id number] #### [facility] TISSUE TYPING (HISTOTRAC) [address] [place] [address] [place] SINGLE ANTIGEN CLASS IIon AB SCREEN COMMENTS No Specificites Found [facility] Comment on above: Performed By: #### L [id number] #### [facility] TISSUE TYPING (HISTOTRAC) [address] [place] [address] [place] CLASS II TESTED DATE [facility] Comment on above: Performed By: #### L [id number] #### [facility] TISSUE TYPING (HISTOTRAC) [address] CPR[facility] 0 [facility] Comment on above: Performed By: #### L [id number] #### [facility] TISSUE TYPING (HISTOTRAC) [address] [place], [place] [address] Performed By: #### L [id number] #### [facility] TISSUE TYPING (HISTOTRAC) [address] [place], [place] [address] SIGNED BY Signed by Govidn tovar CHT([facility]) VALERIANO(ASCP), Fiction And Nonfiction Prose Writer Transplant Immunology [facility] Comment on above: Performed By: #### L [id number] #### [facility] TISSUE TYPING (HISTOTRAC) [address] [place], [place] [address] Result Comment: Clas s I Antigen Microbeads Performed By: #### L [id number] #### [facility] TISSUE TYPING (HISTOTRAC) [address] [place], [place] [address] SINGLE ANTIGEN CLASS 2 TEST METHOD Class II Single Antigen Normal [facility] Comment on above: Result Comment: Clas s II Antigen Microbeads Performed By: #### L [id number] #### [facility] TISSUE TYPING (HISTOTRAC) [address] Telemedicineon 09-01-2024 Telemedicine [phone] Yoel Werner 1985 M Date Provider Department [place] 09/01/2024 LUCERO SEYMOUR [facility] INF [facility] Family History Problem Relation Age of Onset Pancreatic cancer Mother Diabetes Mother Liver disease Mother Hypertension Father Irritable bowel syndrome Father Stroke Father Coronary artery disease Brother 55 Lung cancer Paternal Grandmother Coronary artery disease Paternal Grandfather Family Status - Relation Status Age at Mother Father Brother Paternal Grandmother Paternal Grandfather Level of Service:058[address] [place] OFFICE/OUTPATIENT NEW SF MDM 15 MINUTES (95) Normal [facility] Glucose Glucometer (BldC) [M ass/Vol]Ordered By: Law Cano on 08-29-2024 Glucose [Mass/Vol] Capillary blood gluc ose measurement by glucometer (mass/volume) [facility] Comment on above: Random Glucose Refer ence Range is dependent on time and content of last meal. Glucose of more than 200 mg/dL in a nonstressed, ambulatory subject supports the diagnosis of Diabetes Mellitus. Glucose Poct Glucometerson 0 08-29-2024 Glucose [Mass/Vol] 240 mg/dL Normal [facility] Comment on above: Result Comment: [place] om Glucose Reference Range is dependent on time and content of last meal. Glucose of more than 200 mg/dL in a nonstressed, ambulatory subject supports the diagnosis of Diabetes Mellitus. PERFORMED BY: [place] [address] PATHOLOGIST SKILLED NURSING PROFESSIONAL CRISTHIAN HUFF M.D. Performed By: #### G LULS #### Point of Care testing , Glucose [Mass/Vol] 142 mg/dL Normal [facility] Comment on above: Result Comment: [place] Glucose Reference Range is dependent on time and content of last meal. Glucose of more than 200 mg/dL in a nonstressed, ambulatory subject supports the diagnosis of Diabetes Mellitus. PERFORMED BY: [place] [id number] PATHOLOGIST SKILLED NURSING PROFESSIONAL CRISTHIAN HUFF M.D. Performed By: #### C MICHELLE LACTIC, CMP #### [facility] [address] [place] [address] Glucose [Mass/Vol] 137 mg/dL Normal [facility] Comment on above: Result Comment: [place] om Glucose Reference Range is dependent on time and content of last meal. Glucose of more than 200 mg/dL in a nonstressed, ambulatory subject supports the diagnosis of Diabetes Mellitus. PERFORMED BY: [facility] [address] [place] [id number] PATHOLOGIST SKILLED NURSING PROFESSIONAL CRISTHIAN HUFF M.D. Performed By: #### C UBLD LACTIC, CMP #### [facility] [address] [place], [place] [id number] [facility] Glucose [Mass/Vol] 118 mg/dL Normal [facility] Comment on above: Result Comment: [place] om Glucose Reference Range is dependent on time and content of last meal. Glucose of more than 200 mg/dL in a nonstressed, ambulatory subject supports the diagnosis of Diabetes Mellitus. PERFORMED BY: [place] [address] PATHOLOGIST SKILLED NURSING PROFESSIONAL CRISTHIAN HUFF M.D. Performed By: #### B ROLL HANDLER, CMP, CBC, HS TROP #### [place] [address] [place] Glucose [Mass/Vol] 55 mg/dL Off scale low [facility] Comment on above: Result Comment: [place] om Glucose Reference Range is dependent on time and content of last meal. Glucose of more than 200 mg/dL in a nonstressed, ambulatory subject supports the diagnosis of Diabetes Mellitus. PERFORMED BY: [place] [address] PATHOLOGIST SKILLED NURSING PROFESSIONAL CRISTHIAN HUFF M.D. Performed By: #### B ROLL HANDLER, CMP, CBC, HS TROP #### [address] Glucose [Mass/Vol] 139 mg/dL Normal [facility] Comment on above: Result Comment: [place] om Glucose Reference Range is dependent on time and content of last meal. Glucose of more than 200 mg/dL in a nonstressed, ambulatory subject supports the diagnosis of Diabetes Mellitus. PERFORMED BY: [place] [address] PATHOLOGIST SKILLED NURSING PROFESSIONAL CRISTHIAN HUFF M.D. Performed By: #### C UBLD, LACTIC, CMP #### [place] [address] [place] Glucose [Mass/Vol] 64 mg/dL Normal [facility] Comment on above: Result Comment: [place] om Glucose Reference Range is dependent on time and content of last meal. Glucose of more than 200 mg/dL in a nonstressed, ambulatory subject supports the diagnosis of Diabetes Mellitus. PERFORMED BY: [place] [address] PATHOLOGIST SKILLED NURSING PROFESSIONAL CRISTHIAN HFUF M.D. Performed By: #### B ROLL HANDLER, CMP, CBC, HS TROP #### [address] Glucose [Mass/Vol] 92 mg/dL Normal [facility] Comment on above: Result Comment: [place] om Glucose Reference Range is dependent on time and content of last meal. Glucose of more than 200 mg/dL in a nonstressed, ambulatory subject supports the diagnosis of Diabetes Mellitus. PERFORMED BY: [place] [address] PATHOLOGIST SKILLED NURSING PROFESSIONAL CRISTHIAN HUFF M.D. Performed By: #### B ROLL HANDLER, CMP, CBC, HS TROP #### [address] Commemt1 Normal [facility] Comment on above: Result Comment: Glu2 : WILL NOTIFY DR/RN PERFORMED BY: [place] [address] PATHOLOGIST SKILLED NURSING PROFESSIONAL CRISTHIAN HUFF M.D. Performed By: #### C UBLD, LACTIC, CMP #### [address] Glucose [Mass/Vol] 47 mg/dL Off scale low [facility] Comment on above: Result Comment: [place] om Glucose Reference Range is dependent on time and content of last meal. Glucose of more than 200 mg/dL in a nonstressed, ambulatory subject supports the diagnosis of Diabetes Mellitus. Performed By: #### C UBLD, LACTIC, CMP #### [address] Glucose [Mass/Vol] 382 mg/dL Normal [facility] Comment on above: Result Comment: [place] om Glucose Reference Range is dependent on time and content of last meal. Glucose of more than 200 mg/dL in a nonstressed, ambulatory subject supports the diagnosis of Diabetes Mellitus. PERFORMED BY: [place] [address] PATHOLOGIST SKILLED NURSING PROFESSIONAL CRISTHIAN HUFF M.D. Performed By: #### C UBLD, LACTIC, CMP #### [address] Commemt1 Glu2: Cleaned Meter Normal [facility] Comment on above: Result Comment: PERF ORMED BY: [place] [address] PATHOLOGIST SKILLED NURSING PROFESSIONAL CRISTHIAN HUFF M.D. Performed By: #### G LULS #### Point of Care testing , Glucose [Mass/Vol] 103 mg/dL Normal [facility] Comment on above: Result Comment: [place] om Glucose Reference Range is dependent on time and content of last meal. Glucose of more than 200 mg/dL in a nonstressed, ambulatory subject supports the diagnosis of Diabetes Mellitus. Performed By: #### G LULS #### Point of Care testing , Commemt1 Glu2: Cleaned Meter Normal [facility] Comment on above: Result Comment: PERF ORMED BY: [place] [address] PATHOLOGIST SKILLED NURSING PROFESSIONAL CRISTHIAN HUFF M.D. Performed By: #### C UBLD, LACTIC, CMP #### [address] Glucose [Mass/Vol] 110 mg/dL Normal [facility] Comment on above: Result Comment: [place] om Glucose Reference Range is dependent on time and content of last meal. Glucose of more than 200 mg/dL in a nonstressed, ambulatory subject supports the diagnosis of Diabetes Mellitus. Performed By: #### C UBLD, LACTIC, CMP #### [address] No Panel InformationOrdered By: Law Cano on 08-29-2024 Bedside Glucose Comment See comment [facility] Comment on above: Glu2: WILL NOTIFY DR /RN See comment [facility] Blood Cultureon 08-28-2024 Bacteria identified Cx Nom (Bld) NO GROWTH 5 DAYS PERFORMED BY: [place] [address] PATHOLOGIST SKILLED NURSING PROFESSIONAL CRISTHIAN HUFF M.D. Normal [facility] Comment on above: Performed By: #### C UBLD, LACTIC, CMP #### [facility] [address] COVID Cepheid NegativeOrdere d By: Romain Rios on 08-28-2024 SARS-CoV-2 (COVID-19) Ab IA Ql COVID Cepheid Negative [facility] Comment on above: This is a duplicate Cepheid Xpert Xpress CoV-2/Flu/RSV Plus RNA by RT-PCR result to be used for statistical tracking purpose only. SARS-CoV-2 (COVID-19) RNA HAO+probe Ql (Unsp spec) COVID Cepheid Negative [facility] COVID-19 / Flu A/B / RSV PCR on 08-28-2024 SARS-CoV-2 (COVID-19) RNA HAO+probe Ql (Unsp spec) COVID-19 Cepheid Result Negative for SARS-CoV-2 RNA by RT-PCR Flu A Cepheid Result Negative for Flu A RNA by RT-PCR Flu B Cepheid Result Negative for Flu B RNA by RT-PCR RSV Cepheid Result Negative for RSV RNA by RT-PCR COVID19 Blank Space ------ Reference: Negative COVID19 Blank Space ------ Cepheid Disclaimer The Cepheid Xpert Xpress CoV-2/Flu/RSV Plus has Cepheid Disclaimer not been FDA cleared or approved; this test has Cepheid Disclaimer been authorized by FDA under an EUA for use by Cepheid Disclaimer authorized laboratories; this test has been Cepheid Disclaimer authorized only for the simultaneous qualitative Cepheid Disclaimer detection and differentiation of nucleic acids from Cepheid Disclaimer SARS-CoV-2, influenza A, influenza B, and Cepheid Disclaimer respiratory syncytial virus (RSV), and not for any Cepheid Disclaimer other viruses or pathogens; and this test is only Cepheid Disclaimer authorized for the duration of the declaration that Cepheid Disclaimer circumstances exist justifying the authorization of Cepheid Disclaimer emergency use of in vitro diagnostic tests for Cepheid Disclaimer detection and/or diagnosis of COVID-19 under Cepheid Disclaimer Section 564(b)(1) of the Act, 21 U.S.C. 360bbb- Cepheid Disclaimer 3(b)(1), unless the authorization is terminated or Cepheid Disclaimer revoked sooner. PERFORMED BY: [place] [address] PATHOLOGIST SKILLED NURSING PROFESSIONAL CRISTHIAN HUFF M.D. Normal [facility] Comment on above: Performed By: #### G LULS #### Point of Care testing , Cepheid COVID PCR Negativeon 08-28-2024 SARS-CoV-2 (COVID-19) RNA HAO+probe Ql (Unsp spec) Negative Normal Negative [facility] Comment on above: Result Comment: This is a duplicate CepCorengiid Xpert Xpress CoV-2/Flu/RSV Plus RNA by RT-PCR result to be used for statistical tracking purpose only. PERFORMED BY: [place] [address] PATHOLOGIST SKILLED NURSING PROFESSIONAL CRISTHIAN HUFF M.D. Performed By: #### G LULS #### Point of Care testing , Glucose Poct Glucometerson 0 08-28-2024 Glucose [Mass/Vol] 309 mg/dL Normal [facility] Comment on above: Result Comment: [facility] Glucose Reference Range is dependent on time and content of last meal. Glucose of more than 200 mg/dL in a nonstressed, ambulatory subject supports the diagnosis of Diabetes Mellitus. PERFORMED BY: [place] [address] PATHOLOGIST SKILLED NURSING PROFESSIONAL CRISTHIAN HUFF M.D. Performed By: #### C UBLD, LACTIC, CMP #### [address] Glucose [Mass/Vol] 375 mg/dL Normal [facility] Comment on above: Result Comment: [facility] Glucose Reference Range is dependent on time and content of last meal. Glucose of more than 200 mg/dL in a nonstressed, ambulatory subject supports the diagnosis of Diabetes Mellitus. PERFORMED BY: [place] [address] PATHOLOGIST SKILLED NURSING PROFESSIONAL CRISTHIAN HUFF M.D. Performed By: #### C UBLD LACTIC, CMP #### [address] Laboratory - Microbiology an d Antimicrobial susceptibilityOrdered By: Romain Rios on 08-28-2024 Bacteria identified Cx Nom (Bld) NO GROWTH 5 DAYS [facility] Lactate [Moles/volume] in Se rum or PlasmaOrdered By: Romain Rios on 08-28-2024 Lactate [Moles/Vol] Lactate [Moles/volum e] in Serum or Plasma 0.5-2.2 [facility] Lactic Acidon 08-28-2024 Lactate [Moles/Vol] 0.6 mmol/L Normal 0.5-2.2 [facility] Comment on above: Result Comment: PERF ORMED BY: [place] [address] PATHOLOGIST SKILLED NURSING PROFESSIONAL CRISTHIAN HUFF M.D. Performed By: #### C UBLD, LACTIC, CMP #### [facility] [address] [place] [address] No Panel InformationOrdered By: Romain Rios on 08-28-2024 NO GROWTH 5 DAYS [place] Respiratory specimen influen za A virus, influenza B virus, respiratory syncytical virOrdered By: Romain Rios on 08-28-2024 SARS-CoV-2 (COVID-19) RNA HAO+probe Ql (Unsp spec) Respiratory specimen influenza A virus, influenza B virus, respiratory syncytical vir [facility] Alanine aminotransferase [En zymatic activity/volume] in Serum or PlasmaOrdered By: Romain Rios on 08-27-2024 ALT [Catalytic activity/Vol] Alanine aminotransferase [Enzymatic activity/volume] in Serum or Plasma 7-52 [facility] Albumin [Mass/volume] in Ser um or Plasma by Bromocresol green (BCG) dye binding methoOrdered By: Romain Rios on 08-27-2024 Albumin BCG dye [Mass/Vol] Albumin [Mass/volume] in Serum or Plasma by Bromocresol green (BCG) dye binding metho 3.5-5.7 [facility] Alkaline phosphatase [Enzyma tic activity/volume] in Serum or PlasmaOrdered By: Romain Rios on 08-27-2024 ALP [Catalytic activity/Vol] Alkaline phosphatase [Enzymatic activity/volume] in Serum or Plasma 34-104 [facility] Aspartate aminotransferase [ Enzymatic activity/volume] in Serum or PlasmaOrdered By: Romain Rios on 08-27-2024 AST [Catalytic activity/Vol] Aspartate aminotransferase [Enzymatic activity/volume] in Serum or Plasma 13-39 [facility] B-Type Natriuretic Peptideon 08-27-2024 Natriuretic peptide B (Bld) [Mass/Vol] 4066.0 pg/mL High 5-100 [facility] Comment on above: Result Comment: PERF ORMED BY: [place] [address] PATHOLOGIST SKILLED NURSING PROFESSIONAL CRISTHIAN HUFF M.D. Performed By: #### B ROLL HANDLER, CMP, CBC, HS TROP #### [address] Basophils Auto (Bld) [#/Vol] Ordered By: Romain Rios on 08-27-2024 Basophils (Bld) [#/Vol] Automated basophil count 0.0-0.2 [facility] Basophils/100 WBC Auto (Bld) Ordered By: Romain Rios on 08-27-2024 Basophils/100 WBC (Bld) Automated basophil % . [facility] Bilirubin.total [Mass/volume ] in Serum or PlasmaOrdered By: Romain Rios on 08-27-2024 Bilirubin [Mass/Vol] Bilirubin.total [Mass/volume] in Serum or Plasma 0.3-1.0 [facility] Blood Cultureon 08-27-2024 Bacteria identified Cx Nom (Bld) L FA NO GROWTH 5 DAYS PERFORMED BY: [address] [address] PATHOLOGIST SKILLED NURSING PROFESSIONAL CRISTHIAN HUFF M.D. Normal [facility] Comment on above: Performed By: #### C UBLD, LACTIC, CMP #### [facility] [address] [place] [address] [facility] Calcium [Mass/volume] in Ser um or PlasmaOrdered By: Romain Rios on 08-27-2024 Calcium [Mass/Vol] Calcium [Mass/volume ] in Serum or Plasma 8.6-10.3 [facility] Carbon dioxide, total [Moles /volume] in Serum or PlasmaOrdered By: Romain Rios on 08-27-2024 CO2 [Moles/Vol] Carbon dioxide, tota l [Moles/volume] in Serum or Plasma 21.0-31.0 [facility] Chloride [Moles/volume] in S gretta or PlasmaOrdered By: Romain Rios on 08-27-2024 Chloride [Moles/Vol] Chloride [Moles/vol ume] in Serum or Plasma Low 98-107 [facility] Complete Blood Count Auto Di ffon 08-27-2024 Basophils (Bld) [#/Vol] 0.1 10*3/uL Normal 0.0-0.2 [facility] Comment on above: Result Comment: PERF ORMED BY: [address] [address] PATHOLOGIST SKILLED NURSING PROFESSIONAL CRISTHIAN HUFF M.D. Performed By: #### B ROLL HANDLER, CMP, CBC, HS TROP #### [facility] [address] [place] [address] [place] Basophils/100 WBC (Bld) 1.2 % Normal . [facility] Comment on above: Performed By: #### B ROLL HANDLER, CMP, CBC, HS TROP #### [facility] [address] [place] [address] [place] Eosinophils (Bld) [#/Vol] 0.2 10*3/uL Normal 0.0-0.45 [facility] Comment on above: Performed By: #### B ROLL HANDLER, CMP, CBC, HS TROP #### [address] Eosinophils/100 WBC (Bld) 3.1 % Normal . [facility] Comment on above: Performed By: #### B ROLL HANDLER, CMP, CBC, HS TROP #### [address] Erythrocyte distribution width (RBC) [Ratio] 14.0 % Normal 12.0-14.8 [facility] Comment on above: Performed By: #### B ROLL HANDLER, CMP, CBC, HS TROP #### [address] Hematocrit (Bld) [Volume fraction] 31.8 % Low 38.8-50.0 [facility] Comment on above: Performed By: #### B ROLL HANDLER, CMP, CBC, HS TROP #### [address] Hemoglobin (Bld) [Mass/Vol] 10.9 g/dL Low 13.0-17.0 [facility] Comment on above: Performed By: #### B ROLL HANDLER, CMP, CBC, HS TROP #### [address] Lymphocytes (Bld) [#/Vol] 1.2 10*3/uL Normal 1.00-4.8 [facility] Comment on above: Performed By: #### B ROLL HANDLER, CMP, CBC, HS TROP #### [address] Lymphocytes/100 WBC (Bld) 18.3 % Normal . [facility] Comment on above: Performed By: #### B ROLL HANDLER, CMP, CBC, HS TROP #### [address] MCH (RBC) [Entitic mass] 29.1 pg Normal 27.5-35.2 [facility] Comment on above: Performed By: #### B ROLL HANDLER, CMP, CBC, HS TROP #### [address] MCV (RBC) [Entitic vol] 84.9 fL Normal 83.5-101 [facility] Comment on above: Performed By: #### B ROLL HANDLER, CMP, CBC, HS TROP #### [address] Mean Corpuscular HGB Conc 34.2 g/dL Normal 32.5-35.6 [facility] Comment on above: Performed By: #### B ROLL HANDLER, CMP, CBC, HS TROP #### [place] [address] [place] Monocytes (Bld) [#/Vol] 0.5 10*3/uL Normal 0.0-0.8 [facility] Comment on above: Performed By: #### B ROLL HANDLER, CMP, CBC, HS TROP #### [place] [address] [place] Monocytes/100 WBC (Bld) 18.41 % Normal 0.00-20.00 [facility] Comment on above: Performed By: #### B ROLL HANDLER, CMP, CBC, HS TROP #### [place] [address] [place] Monocytes/100 WBC (Bld) 7.4 % Normal . [facility] Comment on above: Performed By: #### B ROLL HANDLER, CMP, CBC, HS TROP #### [place] [address] [place] Neutrophils (Bld) [#/Vol] 4.5 10*3/uL Normal 1.8-7.7 [facility] Comment on above: Performed By: #### B ROLL HANDLER, CMP, CBC, HS TROP #### [place] [address] [place] Neutrophils/100 WBC (Bld) 70.0 % Normal . [facility] Comment on above: Performed By: #### B ROLL HANDLER, CMP, CBC, HS TROP #### [place] [address] [place] NRBC% 0.0 /100{WBC} Normal 0-0.5 [facility] Comment on above: Performed By: #### B ROLL HANDLER, CMP, CBC, HS TROP #### [address] Platelet mean volume (Bld) [Entitic vol] 7.9 fL Normal 6.6-10.1 [facility] Comment on above: Performed By: #### B ROLL HANDLER, CMP, CBC, HS TROP #### [address] Platelets (Bld) [#/Vol] 151 10*3/uL Normal 150-450 [facility] Comment on above: Performed By: #### B ROLL HANDLER, CMP, CBC, HS TROP #### [address] RBC (Bld) [#/Vol] 3.74 10*6/uL Low 3.90-5.60 [facility] Comment on above: Performed By: #### B ROLL HANDLER, CMP, CBC, HS TROP #### [address] WBC (Bld) [#/Vol] 6.4 10*3/uL Normal 4.1-10.5 [facility] Comment on above: Performed By: #### B ROLL HANDLER, CMP, CBC, HS TROP #### [address] Comprehensive Metabolic Pane elvin 08-27-2024 Albumin [Mass/Vol] 3.7 g/dL Normal 3.5-5.7 [facility] Comment on above: Performed By: #### B ROLL HANDLER, CMP, CBC, HS TROP #### [address] Albumin/Globulin [Mass ratio] 1.3 {ratio} Normal [facility] Comment on above: Performed By: #### B ROLL HANDLER, CMP, CBC, HS TROP #### [address] ALP [Catalytic activity/Vol] 60 U/L Normal 34-104 [facility] Comment on above: Performed By: #### B ROLL HANDLER, CMP, CBC, HS TROP #### [address] ALT [Catalytic activity/Vol] 12 U/L Normal 7-52 [facility] Comment on above: Performed By: #### B ROLL HANDLER, CMP, CBC, HS TROP #### [address] Anion gap [Moles/Vol] 16.1 mmol/L High 6.0-15.0 [facility] Comment on above: Performed By: #### B ROLL HANDLER, CMP, CBC, HS TROP #### [address] AST [Catalytic activity/Vol] 14 U/L Normal 13-39 [facility] Comment on above: Performed By: #### B ROLL HANDLER, CMP, CBC, HS TROP #### [address] Bilirubin [Mass/Vol] 0.7 mg/dL Normal 0.3-1.0 [facility] Comment on above: Performed By: #### B ROLL HANDLER, CMP, CBC, HS TROP #### [address] Calcium [Mass/Vol] 8.9 mg/dL Normal 8.6-10.3 [facility] Comment on above: Performed By: #### B ROLL HANDLER, CMP, CBC, HS TROP #### [place] [address] [place] Chloride [Moles/Vol] 93 mmol/L Low 98-107 [facility] Comment on above: Performed By: #### B ROLL HANDLER, CMP, CBC, HS TROP #### [place] [address] [place] CO2 [Moles/Vol] 26.3 mmol/L Normal 21.0-31.0 [facility] Comment on above: Performed By: #### B ROLL HANDLER, CMP, CBC, HS TROP #### [address] Creatinine [Mass/Vol] 5.91 mg/dL High 0.70-1.30 [facility] Comment on above: Performed By: #### B ROLL HANDLER, CMP, CBC, HS TROP #### [address] Creatinine Clr Calc Pharmacy 18.30 Normal [facility] Comment on above: Result Comment: PERF ORMED BY: [place] [address] PATHOLOGIST SKILLED NURSING PROFESSIONAL CRISTHIAN HUFF M.D. Performed By: #### B ROLL HANDLER, CMP, CBC, HS TROP #### [address] Estimated GFR 11.645 mL/Min Normal [facility] Comment on above: Performed By: #### B ROLL HANDLER, CMP, CBC, HS TROP #### [address] Globulin (S) [Mass/Vol] 2.9 g/dL Normal [facility] Comment on above: Performed By: #### B ROLL HANDLER, CMP, CBC, HS TROP #### [address] Glucose [Mass/Vol] 379 mg/dL High 70-100 [facility] Comment on above: Result Comment: [facility] Glucose Reference Range is dependent on time and content of last meal. Glucose of more than 200 mg/dL in a nonstressed, ambulatory subject supports the diagnosis of Diabetes Mellitus. ADA recommended reference range Performed By: #### B ROLL HANDLER, CMP, CBC, HS TROP #### [address] Potassium [Moles/Vol] 4.4 mmol/L Normal 3.5-5.1 [facility] Comment on above: Performed By: #### B ROLL HANDLER, CMP, CBC, HS TROP #### [address] Protein [Mass/Vol] 6.6 g/dL Normal 6.4-8.9 [facility] Comment on above: Performed By: #### B ROLL HANDLER, CMP, CBC, HS TROP #### [address] Sodium [Moles/Vol] 131 mmol/L Low 136-145 [facility] Comment on above: Performed By: #### B ROLL HANDLER, CMP, CBC, HS TROP #### [facility] [address] [place] [address] [place] Urea nitrogen [Mass/Vol] 48 mg/dL High 7-25 [facility] Comment on above: Performed By: #### B ROLL HANDLER, CMP, CBC, HS TROP #### [facility] [address] [place] [address] [place] Creatinine [Mass/volume] in Serum or PlasmaOrdered By: Romain Rios on 08-27-2024 Creatinine [Mass/Vol] Creatinine [Mass/v olume] in Serum or Plasma High 0.70-1.30 [facility] ECG 12 lead ECGon 08-27-2024 ECG 12 lead ECG [facility] [place] [address] [place] [address] Electrocardiograph Report Signed Patient: Yoel Werner MR#: [id number] : 1985 Acct:[id number] Age/Sex: 39 / M ADM Date: 08/27/24 Loc: ER Room: Type: [facility] ER Attending Dr: Ordering Provider: Romain Rios DO Date of Service: 08/27/2405/13/2147 ECG/ECG 12 lead ECG: Shortness of Breath/Dyspnea Copies to: Test Reason : Blood Pressure : 202/95 mmHG Vent. Rate : 74 BPM Atrial Rate : 74 BPM P-R Int : 172 ms QRS Dur : 84 ms QT Int : 412 ms P-R-T Axes : 72 80 75 degrees QTcB Int : 457 ms Normal sinus rhythm q waves V1, V2, I, AVL consistent prior lateral septal infarct Nonspecific intraventricular conduction delay Confirmed by Romain Rios DO ([id number]) on 08/28/2024 12:58:32 AM Referred By: Electronically Signed By: Romain Rios DO Transcribed By: MUS Signed By Romain Rios DO [id number] Normal [facility] Eosinophils Auto (Bld) [#/Vo l]Ordered By: Romain Rios on 08-27-2024 Eosinophils (Bld) [#/Vol] Automated eosinophil count 0.0-0.45 [facility] Eosinophils/100 WBC Auto (Bl d)Ordered By: Romain Rios on 08-27-2024 Eosinophils/100 WBC (Bld) Automated eosinophil % . [facility] Erythrocyte distribution wid th Auto (RBC) [Ratio]Ordered By: Romain Rios on 08-27-2024 Erythrocyte distribution width (RBC) [Ratio] Erythrocyte distribution width [Ratio] by Automated count 12.0-14.8 [facility] Globulin Calc (S) [Mass/Vol] Ordered By: Romain Rios on 08-27-2024 Globulin (S) [Mass/Vol] Serum globulin measurement by calculation (mass/volume) [facility] Glucose [Mass/volume] in Ser um or PlasmaOrdered By: Romain Rios on 08-27-2024 Glucose [Mass/Vol] Glucose [Mass/volume ] in Serum or Plasma High 70-100 [facility] Comment on above: ADA recommended refe rence rangeRandom Glucose Reference Range is dependent on time and content of last meal. Glucose of more than 200 mg/dL in a nonstressed, ambulatory subject supports the diagnosis of Diabetes Mellitus. Hematocrit Auto (Bld) [Volum e fraction]Ordered By: Romain Rios on 08-27-2024 Hematocrit (Bld) [Volume fraction] Hematocrit [Volume Fraction] of Blood by Automated count Low 38.8-50.0 [facility] Hemoglobin [Mass/volume] in BloodOrdered By: Romain Rios on 08-27-2024 Hemoglobin (Bld) [Mass/Vol] Hemoglobin [Mass/volume] in Blood Low 13.0-17.0 [facility] Laboratory - Microbiology an d Antimicrobial susceptibilityOrdered By: Romain Rios on 08-27-2024 Bacteria identified Cx Nom (Bld) NO GROWTH 5 DAYS [facility] Bacteria identified Cx Nom (Bld) NO GROWTH 5 DAYS [facility] Bacteria identified Cx Nom (Bld) NO GROWTH 5 DAYS [facility] Leukocytes [#/volume] correc celena for nucleated erythrocytes in Blood by Automated counOrdered By: Romain Rios on 08-27-2024 WBC corrected for nucl RBC Auto (Bld) [#/Vol] Leukocytes [#/volume] corrected for nucleated erythrocytes in Blood by Automated coun 4.1-10.5 [facility] Lymphocytes Auto (Bld) [#/Vo l]Ordered By: Romain Rios on 08-27-2024 Lymphocytes (Bld) [#/Vol] Lymphocytes [#/volume] in Blood by Automated count 1.00-4.8 [facility] Lymphocytes/100 WBC Auto (Bl d)Ordered By: Romain Rios on 08-27-2024 Lymphocytes/100 WBC (Bld) Lymphocytes/100 leukocytes in Blood by Automated count . [facility] MCH Auto (RBC) [Entitic mass ]Ordered By: Romain Rios on 08-27-2024 MCH (RBC) [Entitic mass] MCH [Entitic mass] by Automated count 27.5-35.2 [facility] MCHC Auto (RBC) [Mass/Vol]Or dered By: Romain Rios on 08-27-2024 MCHC (RBC) [Mass/Vol] MCHC [Mass/volume] by Automated count 32.5-35.6 [facility] MCV Auto (RBC) [Entitic vol] Ordered By: Romain Rios on 08-27-2024 MCV (RBC) [Entitic vol] MCV [Entitic vol ume] by Automated count 83.5-101 [facility] Monocyte distribution width [Entitic volume] in Blood by AutomatedOrdered By: Romain Rios on 08-27-2024 Monocyte distribution width Auto (Bld) [Entitic vol] Monocyte distribution width [Entitic volume] in Blood by Automated 0.00-20.00 [facility] Monocytes Auto (Bld) [#/Vol] Ordered By: Romain Rios on 08-27-2024 Monocytes (Bld) [#/Vol] Automated blood monocyte count 0.0-0.8 [facility] Monocytes/100 WBC Auto (Bld) Ordered By: Romain Rios on 08-27-2024 Monocytes/100 WBC (Bld) Automated monocyte % . [facility] Natriuretic peptide B [Mass/ Vol]Ordered By: Romain Rios on 08-27-2024 Natriuretic peptide B (Bld) [Mass/Vol] BNP ser/plas High 5-100 [facility] Neutrophils Auto (Bld) [#/Vo l]Ordered By: Romain Rios on 08-27-2024 Neutrophils (Bld) [#/Vol] Neutrophils [#/volume] in Blood by Automated count 1.8-7.7 [facility] Neutrophils/100 WBC Auto (Bl d)Ordered By: Romain Rios on 08-27-2024 Neutrophils/100 WBC (Bld) Automated neutrophil % . [facility] No Panel InformationOrdered By: Romain Rios on 08-27-2024 Estimated GFR (CKD-EPI) 11.645 mL/Min [facility] Creatinine Clearance (Chem 18.30 [facility] 11.645 mL/Min [facility] 18.30 [facility] NO GROWTH 5 DAYS [place] Nucleated erythrocytes [Pres ence] in Blood by Automated countOrdered By: Romain Rios on 08-27-2024 Nucleated RBC Auto Ql (Bld) Nucleated erythrocytes [Presence] in Blood by Automated count 0-0.5 [facility] Platelet mean volume Auto (B ld) [Entitic vol]Ordered By: Romain Rios on 08-27-2024 Platelet mean volume (Bld) [Entitic vol] Platelet mean volume [Entitic volume] in Blood by Automated count 6.6-10.1 [facility] Platelets Auto (Bld) [#/Vol] Ordered By: Romain Rios on 08-27-2024 Platelets (Bld) [#/Vol] Platelets [#/vol ume] in Blood by Automated count 150-450 [facility] Potassium [Moles/volume] in Serum or PlasmaOrdered By: Romain Rios on 08-27-2024 Potassium [Moles/Vol] Potassium [Moles/v olume] in Serum or Plasma 3.5-5.1 [facility] Protein [Mass/volume] in Ser um or PlasmaOrdered By: Romain Rios on 08-27-2024 Protein [Mass/Vol] Protein [Mass/volume ] in Serum or Plasma 6.4-8.9 [facility] RBC Auto (Bld) [#/Vol]Ordere d By: Romain Rios on 08-27-2024 RBC (Bld) [#/Vol] Erythrocytes [#/volu me] in Blood by Automated count Low 3.90-5.60 [facility] Respiratory specimen influen za A virus, influenza B virus, respiratory syncytical virOrdered By: Romain Rios on 08-27-2024 SARS-CoV-2 (COVID-19) RNA HAO+probe Ql (Unsp spec) Respiratory specimen influenza A virus, influenza B virus, respiratory syncytical vir [facility] Serum or plasma albumin/glob ulin mass ratioOrdered By: Romain Rios on 08-27-2024 Albumin/Globulin [Mass ratio] Serum or plasma albumin/globulin mass ratio [facility] Serum or plasma anion gap de terminationOrdered By: Romain Rios on 08-27-2024 Anion gap [Moles/Vol] Serum or plasma an ion gap determination High 6.0-15.0 [facility] Sodium [Moles/volume] in Ser um or PlasmaOrdered By: Romain Rios on 08-27-2024 Sodium [Moles/Vol] Sodium [Moles/volume ] in Serum or Plasma Low 136-145 [facility] Troponin I High Sensitivityo n 08-27-2024 Troponin I High Sensitivity 118.0 pg/mL Off scale high 0.0-20.0 [facility] Comment on above: Result Comment: Crit ical Result : Called to and read back by: PETAR GOFF at: 08/28/2024 00:49:23 by:[id number] PERFORMED BY: [place] [address] PATHOLOGIST SKILLED NURSING PROFESSIONAL CRISTHIAN HUFF M.D. Performed By: #### C UBLD, LACTIC, CMP #### [address] Troponin I.cardiac [Mass/vol ume] in Serum or Plasma by Detection limit <= 0.01 ng/Ordered By: Romain Rios on 08-27-2024 Troponin I.cardiac DL <= 0.01 ng/mL [Mass/Vol] Troponin I.cardiac [Mass/volume] in Serum or Plasma by Detection limit <= 0.01 ng/ Critically high 0.0-20.0 [facility] Comment on above: Critical Result : Ca lled to and read back by: PETAR GOFF at: 08/28/2024 00:49:23 by:[id number] Urea nitrogen [Mass/volume] in Serum or PlasmaOrdered By: Romain Rios on 08-27-2024 Urea nitrogen [Mass/Vol] Urea nitrogen [Mass/volume] in Serum or Plasma High 7-25 [facility] WBC Auto (Bld) [#/Vol]Ordere d By: Romain Rios on 08-27-2024 WBC (Bld) [#/Vol] Leukocytes [#/volume ] in Blood by Automated count 4.1-10.5 [facility] X-ray reportOrdered By: Trenton Salinas on 08-27-2024 Study report [facility] [place] [address] XRay Report Signed Patient: Yoel Werner MR#: [id number] : 1985 Acct:[id number] Age/Sex: 39 / M ADM Date: 5 Loc: ER Room: Type: [facility] ER Attending Dr: Copies to: Romain Rios DO~ Ordering Provider: Romain Rios DO Date of Service: 08/27/24 XR/XR chest 1V portable: Shortness of Breath/Dyspnea XR chest 1V portable 08/27/2024 11:38 PM SIGNS AND SYMPTOMS: ^Shortness of Breath/Dyspnea PROTOCOL: Frontal radiograph the chest COMPARISON: 08/17/2024 FINDINGS: The trachea is midline. There is cardiomegaly. Airspace opacities are present suspicious for pneumonia or pulmonary edema. This is greater along the right heart border. The bony thorax is intact. XR/XR chest 1V portable IMPRESSION: Airspace opacities are present suspicious for pneumonia or pulmonary edema. This is greater along the right heart border. Impression dictated by: Trenton Salinas M.D.08/27/2024 11:57 PM Dictation Location: [place] [address] Transcribed By: BRENNAN [id number] Dictated By: Trenton Salinas II, MD 08/27/242352 Signed By: 08/27/242356 [facility] Work Phone: XR chest 1V portableon 08-27 XR chest 1V portable [facility] [address] [place], [place] [id number] XRay Report Signed Patient: Yoel Werner MR#: [id number] : 1985 Acct:[id number] Age/Sex: 39 / M ADM Date: 08/27/24 Loc: ER Room: Type: [facility] ER Attending Dr: Copies to: Romain Rios DO Ordering Provider: Romain Rios DO Date of Service: 08/27/24 XR/XR chest 1V portable: Shortness of Breath/Dyspnea XR chest 1V portable 08/27/2024 11:38 PM SIGNS AND SYMPTOMS: Shortness of Breath/Dyspnea PROTOCOL: Frontal radiograph the chest COMPARISON: 08/17/2024 FINDINGS: The trachea is midline. There is cardiomegaly. Airspace opacities are present suspicious for pneumonia or pulmonary edema. This is greater along the right heart border. The bony thorax is intact. XR/XR chest 1V portable IMPRESSION: Airspace opacities are present suspicious for pneumonia or pulmonary edema. This is greater along the right heart border. Impression dictated by: Trenton Salinas M.D.08/27/2024 11:57 PM Dictation Location: [place] [address] Transcribed By: [facility] 08/27/242356 Dictated By: Trenton Salinas II, MD 08/27/242352 Signed By: 08/27/242356 Normal [facility] COVID Cepheid NegativeOrdere d By: Donna Shaw on 08-17-2024 SARS-CoV-2 (COVID-19) Ab IA Ql COVID Cepheid Negative [facility] Comment on above: This is a duplicate Cepheid Xpert Xpress CoV-2/Flu/RSV Plus RNA by RT-PCR result to be used for statistical tracking purpose only. SARS-CoV-2 (COVID-19) RNA HAO+probe Ql (Unsp spec) COVID Cepheid Negative [facility] COVID-19 / FLU A/B / RSV PCR ([facility])on 08-17-2024 SARS-CoV-2 (COVID-19) RNA HAO+probe Ql (Unsp spec) Negative Negative [facility] Comment on above: This is a duplicate Cepheid Xpert Xpress CoV-2/Flu/RSV Plus RNA by RT-PCR result to be used for statistical tracking purpose only. [facility] CEPHEID DISCLAIMER The Cepheid Xpert Xp ress CoV-2/Flu/RSV Plus has [facility] [employer] CEPHEID DISCLAIMER not been FDA cleared or approved; this test has [facility] CEPHEID DISCLAIMER been authorized by [employer] under an EUA for use by [facility] CEPHEID DISCLAIMER authorized laborator s; this test has been [facility] CEPHEID DISCLAIMER authorized only for the simultaneous qualitative [facility] CEPHEID DISCLAIMER detection and differentiation of nucleic acids from [facility] CEPHEID DISCLAIMER respiratory syncytia l virus (RSV), and not for any [facility] CEPHEID DISCLAIMER other viruses or pathogens; and this test is only [facility] CEPHEID DISCLAIMER authorized for the duration of the declaration that [facility] CEPHEID DISCLAIMER circumstances exist justifying the authorization of [facility] CEPHEID DISCLAIMER emergency use of in vitro diagnostic tests for [facility] CEPHEID DISCLAIMER Section 564(b)(1) of the Act, 21 U.S.C. 360bbb- [facility] CEPHEID DISCLAIMER 3(b)(1), unless the authorization is terminated or [facility] CEPHEID DISCLAIMER revoked sooner. [facility] FLU A CEPHEID RESULT Negative [facility] FLU B CEPHEID RESULT Negative [facility] Interpretation and review of laboratory results Abnormal [facility] REFERENCE: Negative [facility] RSV CEPHEID RESULT Positive Abnormal [facility] SARS-CoV-2 (COVID-19) Ab IA Ql SARS-CoV-2, influenza A, influenza B, and [facility] SARS-CoV-2 (COVID-19) RNA HAO+probe Ql (Unsp spec) Negative [facility] SARS-CoV-2 (COVID-19) RNA HAO+probe Ql (Unsp spec) detection and/or diagnosis of COVID-19 under [facility] COVID-19 / Flu A/B / RSV PCR on 08-17-2024 SARS-CoV-2 (COVID-19) RNA HAO+probe Ql (Unsp spec) COVID-19 Cepheid Result Negative for SARS-CoV-2 RNA by RT-PCR Flu A Cepheid Result Negative for Flu A RNA by RT-PCR Flu B Cepheid Result Negative for Flu B RNA by RT-PCR RSV Cepheid Result Positive for RSV RNA by RT-PCR COVID19 Blank Space ------ Reference: Negative COVID19 Blank Space ------ Cepheid Disclaimer The Cepheid Xpert Xpress CoV-2/Flu/RSV Plus has Cepheid Disclaimer not been FDA cleared or approved; this test has Cepheid Disclaimer been authorized by FDA under an EUA for use by Cepheid Disclaimer authorized laboratories; this test has been Cepheid Disclaimer authorized only for the simultaneous qualitative Cepheid Disclaimer detection and differentiation of nucleic acids from Cepheid Disclaimer SARS-CoV-2, influenza A, influenza B, and Cepheid Disclaimer respiratory syncytial virus (RSV), and not for any Cepheid Disclaimer other viruses or pathogens; and this test is only Cepheid Disclaimer authorized for the duration of the declaration that Cepheid Disclaimer circumstances exist justifying the authorization of Cepheid Disclaimer emergency use of in vitro diagnostic tests for Cepheid Disclaimer detection and/or diagnosis of COVID-19 under Cepheid Disclaimer Section 564(b)(1) of the Act, 21 U.S.C. 360bbb- Cepheid Disclaimer 3(b)(1), unless the authorization is terminated or Cepheid Disclaimer revoked sooner. PERFORMED BY: [place] [address] PATHOLOGIST SKILLED NURSING PROFESSIONAL CRISTHIAN HUFF M.D. Normal [facility] Comment on above: Performed By: #### B ROLL HANDLER, CMP, CBC, HS TROP #### [address] [address] [facility] Cepheid COVID PCR Negativeon 08-17-2024 SARS-CoV-2 (COVID-19) RNA HAO+probe Ql (Unsp spec) Negative Normal Negative [facility] Comment on above: Result Comment: This is a duplicate Cepheid Xpert Xpress CoV-2/Flu/RSV Plus RNA by RT-PCR result to be used for statistical tracking purpose only. PERFORMED BY: [place] [address] PATHOLOGIST SKILLED NURSING PROFESSIONAL CRISTHIAN HUFF M.D. Performed By: #### B ROLL HANDLER, CMP, CBC, HS TROP #### [place] [id number] [facility] Laboratory - Microbiology an d Antimicrobial susceptibilityon 08-17-2024 SARS-CoV-2 (COVID-19) RNA HAO+probe Ql (Unsp spec) ------ [facility] Respiratory specimen influen za A virus, influenza B virus, respiratory syncytical virOrdered By: Donna Shaw on 08-17-2024 SARS-CoV-2 (COVID-19) RNA HAO+probe Ql (Unsp spec) Respiratory specimen influenza A virus, influenza B virus, respiratory syncytical vir [facility] SARS-CoV-2 (COVID-19) RNA HAO+probe Ql (Unsp spec) Respiratory specimen influenza A virus, influenza B virus, respiratory syncytical vir [facility] XR chest 2V*on 08-17-2024 XR chest 2V* [facility] Main [place] [address] [place] [address] XRay Report Signed Patient: Yoel Werner MR#: [id number] : 1985 Acct:[id number] Age/Sex: 39 / M ADM Date: 08/17/24 Loc: ER Room: Type: [facility] ER Attending Dr: Copies to: Donna Shaw [...] Trenton Salinas M.D.08/17/2024 3:24 PM Dictation Location: [facility] Transcribed By: [facility] 08/17/24 1524 Dictated By: Trenton Salinas II, MD 08/17/24 1523 Signed By: 08/17/24 1524 Normal [facility] Consulton 08-13-2024 Consult [phone] RashiYoel meehan 1985 M Date Provider Department Center 08/13/2024 STEPHEN MCGHEE [facility] CARD [facility] Family History Problem Relation Age of Onset Pancreatic cancer Mother Hypertension Father Coronary artery disease Brother 55 Lung cancer Paternal Grandmother Coronary artery disease Paternal Grandfather Family Status - Relation Status Age at Mother Father Brother Paternal Grandmother Paternal Grandfather Level of Service:[address] [place] OFFICE/OP CONSLTJ NEW/EST PT MOD MDM 40 MINUTES Reason for Visit and Comments: Cardiac evaluation for renal transplant [Other] - ROLL HANDLER evaluation w/ no testing Normal [facility] Alanine aminotransferase [En zymatic activity/volume] in Serum or PlasmaOrdered By: Tenzin Ortiz on 08-01-2024 ALT [Catalytic activity/Vol] Alanine aminotransferase [Enzymatic activity/volume] in Serum or Plasma 7-52 [facility] Albumin [Mass/volume] in Ser um or Plasma by Bromocresol green (BCG) dye binding methoOrdered By: Tenzin Ortiz on 08-01-2024 Albumin BCG dye [Mass/Vol] Albumin [Mass/volume] in Serum or Plasma by Bromocresol green (BCG) dye binding metho 3.5-5.7 [facility] Alkaline phosphatase [Enzyma tic activity/volume] in Serum or PlasmaOrdered By: Tenzin Ortiz on 08-01-2024 ALP [Catalytic activity/Vol] Alkaline phosphatase [Enzymatic activity/volume] in Serum or Plasma 34-104 [facility] Appearance of UrineOrdered B y: Tenzin Ortiz on 08-01-2024 Appearance (U) Urine appearance Clear [facility] Aspartate aminotransferase [ Enzymatic activity/volume] in Serum or PlasmaOrdered By: Tenzin Ortiz on 08-01-2024 AST [Catalytic activity/Vol] Aspartate aminotransferase [Enzymatic activity/volume] in Serum or Plasma Low 13-39 [facility] B-Type Natriuretic Peptideon 08-01-2024 Natriuretic peptide B (Bld) [Mass/Vol] 2909.0 pg/mL High 5-100 [facility] Comment on above: Result Comment: PERF ORMED BY: [facility] [address] [place] [address] PATHOLOGIST SKILLED NURSING PROFESSIONAL CRISTHIAN HUFF M.D. Performed By: #### G LULS #### Point of Care testing , Bacteria [Presence] in Urine by AutomatedOrdered By: Tenzin Ortiz on 08-01-2024 Bacteria Auto Ql (U) Bacteria [Presence] in Urine by Automated None Seen [facility] Basophils Auto (Bld) [#/Vol] Ordered By: Tenzin Ortiz on 08-01-2024 Basophils (Bld) [#/Vol] Automated basophil count 0.0-0.2 [facility] Basophils/100 WBC Auto (Bld) Ordered By: Tenzin Ortiz on 08-01-2024 Basophils/100 WBC (Bld) Automated basophil % . [facility] Bilirubin Test strip Ql (U)O rdered By: Tenzin Ortiz on 08-01-2024 Bilirubin Ql (U) Bilirubin.total [Presence] in Urine by Test strip Negative [facility] Bilirubin.total [Mass/volume ] in Serum or PlasmaOrdered By: Tenzin Ortiz on 08-01-2024 Bilirubin [Mass/Vol] Bilirubin.total [Mass/volume] in Serum or Plasma 0.3-1.0 [facility] Calcium [Mass/volume] in Ser um or PlasmaOrdered By: Tenzin Ortiz on 08-01-2024 Calcium [Mass/Vol] Calcium [Mass/volume ] in Serum or Plasma 8.6-10.3 [facility] Carbon dioxide, total [Moles /volume] in Serum or PlasmaOrdered By: Tenzin Ortiz on 08-01-2024 CO2 [Moles/Vol] Carbon dioxide, tota l [Moles/volume] in Serum or Plasma 21.0-31.0 [facility] Chloride [Moles/volume] in S gretta or PlasmaOrdered By: Tenzin Ortiz on 08-01-2024 Chloride [Moles/Vol] Chloride [Moles/vol ume] in Serum or Plasma Low 98-107 [facility] Color Auto (U)Ordered By: Jose Luis Ortiz on 08-01-2024 Color (U) Color of Urine by Auto Yellow [facility] Complete Blood Count Auto Di ffon 08-01-2024 Basophils (Bld) [#/Vol] 0.1 10*3/uL Normal 0.0-0.2 [facility] Comment on above: Result Comment: PERF ORMED BY: [facility] [address] [place] [address] PATHOLOGIST SKILLED NURSING PROFESSIONAL CRISTHIAN HUFF M.D. Performed By: #### G LULS #### Point of Care testing , Basophils/100 WBC (Bld) 1.4 % Normal . T julianna [facility] Comment on above: Performed By: #### G LULS #### Point of Care testing , Eosinophils (Bld) [#/Vol] 0.2 10*3/uL Normal 0.0-0.45 [facility] Comment on above: Performed By: #### G LULS #### Point of Care testing , Eosinophils/100 WBC (Bld) 3.7 % Normal . [facility] Comment on above: Performed By: #### G LULS #### Point of Care testing , Erythrocyte distribution width (RBC) [Ratio] 15.1 % High 12.0-14.8 [facility] Comment on above: Performed By: #### G LULS #### Point of Care testing , Hematocrit (Bld) [Volume fraction] 31.9 % Low 38.8-50.0 [facility] Comment on above: Performed By: #### G LULS #### Point of Care testing , Hemoglobin (Bld) [Mass/Vol] 10.8 g/dL Low 13.0-17.0 [facility] Comment on above: Performed By: #### G LULS #### Point of Care testing , Lymphocytes (Bld) [#/Vol] 0.7 10*3/uL Low 1.00-4.8 [facility] Comment on above: Performed By: #### G LULS #### Point of Care testing , Lymphocytes/100 WBC (Bld) 16.0 % Normal . [facility] Comment on above: Performed By: #### G LULS #### Point of Care testing , MCH (RBC) [Entitic mass] 29.9 pg Normal 27.5-35.2 [facility] Comment on above: Performed By: #### G LULS #### Point of Care testing , MCV (RBC) [Entitic vol] 88.0 fL Normal 83.5-101 [facility] Comment on above: Performed By: #### G LULS #### Point of Care testing , Mean Corpuscular HGB Conc 34.0 g/dL Normal 32.5-35.6 [facility] Comment on above: Performed By: #### G LULS #### Point of Care testing , Monocytes (Bld) [#/Vol] 0.2 10*3/uL Normal 0.0-0.8 [facility] Comment on above: Performed By: #### G LULS #### Point of Care testing , Monocytes/100 WBC (Bld) 16.65 % Normal 0.00-20.00 [facility] Comment on above: Performed By: #### G LULS #### Point of Care testing , Monocytes/100 WBC (Bld) 5.0 % Normal . [facility] Comment on above: Performed By: #### G LULS #### Point of Care testing , Neutrophils (Bld) [#/Vol] 3.3 10*3/uL Normal 1.8-7.7 [facility] Comment on above: Performed By: #### G LULS #### Point of Care testing , Neutrophils/100 WBC (Bld) 73.9 % Normal . [facility] Comment on above: Performed By: #### G LULS #### Point of Care testing , NRBC% 0.2 /100{WBC} Normal 0-0.5 [facility] Comment on above: Performed By: #### G LULS #### Point of Care testing , Platelet mean volume (Bld) [Entitic vol] 8.7 fL Normal 6.6-10.1 [facility] Comment on above: Performed By: #### G LULS #### Point of Care testing , Platelets (Bld) [#/Vol] 130 10*3/uL Low 150-450 [facility] Comment on above: Performed By: #### G LULS #### Point of Care testing , RBC (Bld) [#/Vol] 3.62 10*6/uL Low 3.90-5.60 [facility] Comment on above: Performed By: #### G LULS #### Point of Care testing , WBC (Bld) [#/Vol] 4.5 10*3/uL Normal 4.1-10.5 [facility] Comment on above: Performed By: #### G LULS #### Point of Care testing , Comprehensive Metabolic Pane elvin 08-01-2024 Albumin [Mass/Vol] 3.9 g/dL Normal 3.5-5.7 [facility] Comment on above: Performed By: #### G LULS #### Point of Care testing , Albumin/Globulin [Mass ratio] 1.4 {ratio} Normal [facility] Comment on above: Performed By: #### G LULS #### Point of Care testing , ALP [Catalytic activity/Vol] 59 U/L Normal 34-104 [facility] Comment on above: Performed By: #### G LULS #### Point of Care testing , ALT [Catalytic activity/Vol] 9 U/L Normal 7-52 [facility] Comment on above: Performed By: #### G LULS #### Point of Care testing , Anion gap [Moles/Vol] 12.9 mmol/L Normal 6.0-15.0 [facility] Comment on above: Performed By: #### G LULS #### Point of Care testing , AST [Catalytic activity/Vol] 11 U/L Low 13-39 [facility] Comment on above: Performed By: #### G LULS #### Point of Care testing , Bilirubin [Mass/Vol] 0.6 mg/dL Normal 0.3-1.0 [facility] Comment on above: Performed By: #### G LULS #### Point of Care testing , Calcium [Mass/Vol] 8.9 mg/dL Normal 8.6-10.3 [facility] Comment on above: Performed By: #### G LULS #### Point of Care testing , Chloride [Moles/Vol] 95 mmol/L Low 98-107 [facility] Comment on above: Performed By: #### G LULS #### Point of Care testing , CO2 [Moles/Vol] 28.5 mmol/L Normal 21.0-31.0 [facility] Comment on above: Performed By: #### G LULS #### Point of Care testing , Creatinine [Mass/Vol] 4.40 mg/dL High 0.70-1.30 [facility] Comment on above: Performed By: #### G LULS #### Point of Care testing , Creatinine Clr Calc Pharmacy 23.50 Normal [facility] Comment on above: Result Comment: PERF ORMED BY: [place] [address] [place] [address] PATHOLOGIST SKILLED NURSING PROFESSIONAL CRISTHIAN HUFF M.D. Performed By: #### G LULS #### Point of Care testing , Estimated GFR 16.592 mL/Min Normal [facility] Comment on above: Performed By: #### G LULS #### Point of Care testing , Globulin (S) [Mass/Vol] 2.8 g/dL Normal T [facility] Comment on above: Performed By: #### G LULS #### Point of Care testing , Glucose [Mass/Vol] 374 mg/dL High 70-100 [facility] Comment on above: Result Comment: [facility] Glucose Reference Range is dependent on time and content of last meal. Glucose of more than 200 mg/dL in a nonstressed, ambulatory subject supports the diagnosis of Diabetes Mellitus. ADA recommended reference range Performed By: #### G LULS #### Point of Care testing , Potassium [Moles/Vol] 4.4 mmol/L Normal 3.5-5.1 [facility] Comment on above: Performed By: #### G LULS #### Point of Care testing , Protein [Mass/Vol] 6.7 g/dL Normal 6.4-8.9 [facility] Comment on above: Performed By: #### G LULS #### Point of Care testing , Sodium [Moles/Vol] 132 mmol/L Low 136-145 [facility] Comment on above: Performed By: #### G LULS #### Point of Care testing , Urea nitrogen [Mass/Vol] 33 mg/dL High 7-25 [facility] Comment on above: Performed By: #### G LULS #### Point of Care testing , Creatine Kinaseon 08-01-2024 CK [Catalytic activity/Vol] 67 U/L Normal 30-223 [facility] Comment on above: Performed By: #### G LULS #### Point of Care testing , Creatine kinase [Enzymatic a ctivity/volume] in Serum or PlasmaOrdered By: Tenzin Ortiz on 08-01-2024 CK [Catalytic activity/Vol] Creatine kinase [Enzymatic activity/volume] in Serum or Plasma 30-223 [facility] Creatinine [Mass/volume] in Serum or PlasmaOrdered By: Tenzin Ortiz on 08-01-2024 Creatinine [Mass/Vol] Creatinine [Mass/v olume] in Serum or Plasma High 0.70-1.30 [facility] Dipstick and Microscopicon 1 10-02-2023 Appearance (U) Clear Normal Clear [facility] Comment on above: Order Comment: Name Collection Type:: Clean-Voided Midstream Performed By: #### C UBLD, LACTIC, CMP #### [address] Bacteria,Urine Rare Normal None Seen [facility] Comment on above: Order Comment: Name Collection Type:: Clean-Voided Midstream Performed By: #### C UBLD, LACTIC, CMP #### [address] Bilirubin,Urine Negative Normal Negative [facility] Comment on above: Order Comment: Name Collection Type:: Clean-Voided Midstream Performed By: #### C UBLD, LACTIC, CMP #### [address] Color (U) Light-Yellow Normal Yellow [facility] Comment on above: Order Comment: Name Collection Type:: Clean-Voided Midstream Performed By: #### C UBLD, LACTIC, CMP #### [address] Glucose Ql (U) >= High Normal [facility] Comment on above: Order Comment: Name Collection Type:: Clean-Voided Midstream Performed By: #### C UBLD, LACTIC, CMP #### [address] Hyaline Casts,Urine 0 [LPF] Normal 0-8 [facility] Comment on above: Order Comment: Name Collection Type:: Clean-Voided Midstream Result Comment: PERF ORMED BY: [place] [address] PATHOLOGIST SKILLED NURSING PROFESSIONAL CRISTHIAN HUFF M.D. Performed By: #### C UBLD, LACTIC, CMP #### [address] Ketones Ql (U) Negative Normal Negative [facility] Comment on above: Order Comment: Name Collection Type:: Clean-Voided Midstream Performed By: #### C UBLD, LACTIC, CMP #### [address] Leukocyte esterase Test strip Ql (U) Negative Normal Negative [facility] Comment on above: Order Comment: Name Collection Type:: Clean-Voided Midstream Performed By: #### C UBLD, LACTIC, CMP #### [address] Nitrite,Urine Negative Normal Negative [facility] Comment on above: Order Comment: Name Collection Type:: Clean-Voided Midstream Performed By: #### C UBLD, LACTIC, CMP #### [address] Occult Blood,Urine 1+ High Negative [facility] Comment on above: Order Comment: Name Collection Type:: Clean-Voided Midstream Result Comment: PERF ORMED BY: [place] [address] PATHOLOGIST SKILLED NURSING PROFESSIONAL CRISTHIAN HUFF M.D. Performed By: #### C UBLD, LACTIC, CMP #### [address] pH (U) 8.0 [pH] Normal 5.0-9.0 [facility] Comment on above: Order Comment: Name Collection Type:: Clean-Voided Midstream Performed By: #### C UBLD, LACTIC, CMP #### [address] Protein (U) [Mass/Vol] 300 mg/dL High Negative [facility] Comment on above: Order Comment: Name Collection Type:: Clean-Voided Midstream Performed By: #### C UBLD, LACTIC, CMP #### [place] [address] [place] RBC,Urine 10 [HPF] High 0-4 [facility] Comment on above: Order Comment: Name Collection Type:: Clean-Voided Midstream Performed By: #### C UBLD, LACTIC, CMP #### [facility] [address] Specificy [place],Urine 1.008 Normal 1.001-1.030 [facility] Comment on above: Order Comment: Name Collection Type:: Clean-Voided Midstream Performed By: #### C UBLD, LACTIC, CMP #### [facility] [address] Urobilinogen,Urine Normal Normal Normal [facility] Comment on above: Order Comment: Name Collection Type:: Clean-Voided Midstream Performed By: #### C UBLD, LACTIC, CMP #### [facility] [address] WBC,Urine 5 [HPF] High 0-4 [facility] Comment on above: Order Comment: Name Collection Type:: Clean-Voided Midstream Performed By: #### C UBLD, LACTIC, CMP #### [address] ECG 12 lead ECGon 08-01-2024 ECG 12 lead ECG [facility] [place] [address] [place] [address] Electrocardiograph Report Signed Patient: Yoel Werner MR#: [id number] : 1985 Acct:[id number] Age/Sex: 39 / M ADM Date: 08/01/24 Loc: ER Room: Type: [facility] ER Attending Dr: Ordering Provider: Tenzin Ortiz Jr, MD Date of Service: 08/01/24 ECG/ECG 12 lead ECG: Shortness of Breath/Dyspnea Copies to: Test Reason : Blood Pressure : 196/91 mmHG Vent. Rate : 79 BPM Atrial Rate : 79 BPM P-R Int : 172 ms QRS Dur : 92 ms QT Int : 398 ms P-R-T Axes : 63 -4 112 degrees QTcB Int : 456 ms Normal sinus rhythm Possible Left atrial enlargement Septal infarct (cited on or before 01-Mar-2024) Abnormal ECG When compared with ECG of 09-Mar-2024 05:43, No significant change was found Confirmed by EDITH MOLINA, ELVIN ([id number]) on 08/02/2024 1:11:40 PM Referred By: Electronically Signed By: ELVIN SHARMA MD Transcribed By: MUS Signed By Elvin Sharma MD 1 10/03/23 1311 Normal [facility] Eosinophils Auto (Bld) [#/Vo l]Ordered By: Tenzin Ortiz on 08-01-2024 Eosinophils (Bld) [#/Vol] Automated eosinophil count 0.0-0.45 [facility] Eosinophils/100 WBC Auto (Bl d)Ordered By: Tenzin Ortiz on 08-01-2024 Eosinophils/100 WBC (Bld) Automated eosinophil % . [facility] Epithelial cells.squamous [# /area] in Urine sediment by Automated countOrdered By: Tenzin Ortiz on 08-01-2024 Epithelial cells.squamous Auto (Urine sed) [#/Area] Epithelial cells.squamous [#/area] in Urine sediment by Automated count [facility] Erythrocyte distribution wid th Auto (RBC) [Ratio]Ordered By: Tenzin Ortiz on 08-01-2024 Erythrocyte distribution width (RBC) [Ratio] Erythrocyte distribution width [Ratio] by Automated count High 12.0-14.8 [facility] Erythrocytes [#/area] in Uri ne sediment by Automated countOrdered By: Tenzin Ortiz on 08-01-2024 RBC Auto (Urine sed) [#/Area] Erythrocytes [#/area] in Urine sediment by Automated count High 0-4 [facility] Globulin Calc (S) [Mass/Vol] Ordered By: Tenzin Ortiz on 08-01-2024 Globulin (S) [Mass/Vol] Serum globulin measurement by calculation (mass/volume) [facility] Glucose [Mass/volume] in Ser um or PlasmaOrdered By: Tenzin Ortiz on 08-01-2024 Glucose [Mass/Vol] Glucose [Mass/volume ] in Serum or Plasma High 70-100 [facility] Comment on above: ADA recommended refe rence rangeRandom Glucose Reference Range is dependent on time and content of last meal. Glucose of more than 200 mg/dL in a nonstressed, ambulatory subject supports the diagnosis of Diabetes Mellitus. Glucose [Mass/volume] in Uri ne by Test stripOrdered By: Tenzin Ortiz on 08-01-2024 Glucose Test strip (U) [Mass/Vol] Glucose [Mass/volume] in Urine by Test strip High Normal [facility] Hematocrit Auto (Bld) [Volum e fraction]Ordered By: Tenzin Ortiz on 08-01-2024 Hematocrit (Bld) [Volume fraction] Hematocrit [Volume Fraction] of Blood by Automated count Low 38.8-50.0 [facility] Hemoglobin Test strip Ql (U) Ordered By: Tenzin Ortiz on 08-01-2024 Hemoglobin Ql (U) Hemoglobin [Presence ] in Urine by Test strip High Negative [facility] Hemoglobin [Mass/volume] in BloodOrdered By: Tenzin Ortiz on 08-01-2024 Hemoglobin (Bld) [Mass/Vol] Hemoglobin [Mass/volume] in Blood Low 13.0-17.0 [facility] Hyaline casts [#/area] in Ur ine sediment by Automated countOrdered By: Tenzin Ortiz on 08-01-2024 Hyaline casts Auto (Urine sed) [#/Area] Hyaline casts [#/area] in Urine sediment by Automated count 0-8 [facility] Ketones Test strip Ql (U)Ord ered By: Tenzin Ortiz on 08-01-2024 Ketones Ql (U) Ketones [Presence] i n Urine by Test strip Negative [facility] Leukocyte esterase [Presence ] in Urine by Test stripOrdered By: Tenzin Ortiz on 08-01-2024 Leukocyte esterase Test strip Ql (U) Leukocyte esterase [Presence] in Urine by Test strip Negative [facility] Leukocytes [#/area] in Urine sediment by Automated countOrdered By: Tenzin Ortiz on 08-01-2024 WBC Auto (Urine sed) [#/Area] Leukocytes [#/area] in Urine sediment by Automated count High 0-4 [facility] Leukocytes [#/volume] correc celena for nucleated erythrocytes in Blood by Automated counOrdered By: Tenzin Ortiz on 08-01-2024 WBC corrected for nucl RBC Auto (Bld) [#/Vol] Leukocytes [#/volume] corrected for nucleated erythrocytes in Blood by Automated coun 4.1-10.5 [facility] Lymphocytes Auto (Bld) [#/Vo l]Ordered By: Tenzin Ortiz on 08-01-2024 Lymphocytes (Bld) [#/Vol] Lymphocytes [#/volume] in Blood by Automated count Low 1.00-4.8 [facility] Lymphocytes/100 WBC Auto (Bl d)Ordered By: Tenzin Ortiz on 08-01-2024 Lymphocytes/100 WBC (Bld) Lymphocytes/100 leukocytes in Blood by Automated count . [facility] MCH Auto (RBC) [Entitic mass ]Ordered By: Tenzin Ortiz on 08-01-2024 MCH (RBC) [Entitic mass] MCH [Entitic mass] by Automated count 27.5-35.2 [facility] MCHC Auto (RBC) [Mass/Vol]Or dered By: Tenzin Ortiz on 08-01-2024 MCHC (RBC) [Mass/Vol] MCHC [Mass/volume] by Automated count 32.5-35.6 [facility] MCV Auto (RBC) [Entitic vol] Ordered By: Tenzin Ortiz on 08-01-2024 MCV (RBC) [Entitic vol] MCV [Entitic vol ume] by Automated count 83.5-101 [facility] Monocyte distribution width [Entitic volume] in Blood by AutomatedOrdered By: Tenzin Ortiz on 08-01-2024 Monocyte distribution width Auto (Bld) [Entitic vol] Monocyte distribution width [Entitic volume] in Blood by Automated 0.00-20.00 [facility] Monocytes Auto (Bld) [#/Vol] Ordered By: Tenzin Ortiz on 08-01-2024 Monocytes (Bld) [#/Vol] Automated blood monocyte count 0.0-0.8 [facility] Monocytes/100 WBC Auto (Bld) Ordered By: Tenzin Ortiz on 08-01-2024 Monocytes/100 WBC (Bld) Automated monocyte % . [facility] Natriuretic peptide B [Mass/ Vol]Ordered By: Tenzin Ortiz on 08-01-2024 Natriuretic peptide B (Bld) [Mass/Vol] BNP ser/plas High 5-100 [facility] Neutrophils Auto (Bld) [#/Vo l]Ordered By: Tenzin Ortiz on 08-01-2024 Neutrophils (Bld) [#/Vol] Neutrophils [#/volume] in Blood by Automated count 1.8-7.7 [facility] Neutrophils/100 WBC Auto (Bl d)Ordered By: Tenzin Ortiz on 08-01-2024 Neutrophils/100 WBC (Bld) Automated neutrophil % . [facility] Nitrite Test strip Ql (U)Ord ered By: Tenzin Ortiz on 08-01-2024 Nitrite Ql (U) Nitrite [Presence] i n Urine by Test strip Negative [facility] No Panel InformationOrdered By: Tenzin Ortiz on 08-01-2024 Estimated GFR (CKD-EPI) 16.592 mL/Min [facility] Creatinine Clearance (Chem 23.50 [facility] 16.592 mL/Min [facility] 23.50 [facility] Nucleated erythrocytes [Pres ence] in Blood by Automated countOrdered By: Tenzin Ortiz on 08-01-2024 Nucleated RBC Auto Ql (Bld) Nucleated erythrocytes [Presence] in Blood by Automated count 0-0.5 [facility] Platelet mean volume Auto (B ld) [Entitic vol]Ordered By: Tenzin Ortiz on 08-01-2024 Platelet mean volume (Bld) [Entitic vol] Platelet mean volume [Entitic volume] in Blood by Automated count 6.6-10.1 [facility] Platelets Auto (Bld) [#/Vol] Ordered By: Tenzin Ortiz on 08-01-2024 Platelets (Bld) [#/Vol] Platelets [#/vol ume] in Blood by Automated count Low 150-450 [facility] Potassium [Moles/volume] in Serum or PlasmaOrdered By: Tenzin Ortiz on 08-01-2024 Potassium [Moles/Vol] Potassium [Moles/v olume] in Serum or Plasma 3.5-5.1 [facility] Protein Test strip (U) [Mass /Vol]Ordered By: Tenzin Ortiz on 08-01-2024 Protein (U) [Mass/Vol] Protein [Mass/vol ume] in Urine by Test strip High Negative [facility] Protein [Mass/volume] in Ser um or PlasmaOrdered By: Tenzin Ortiz on 08-01-2024 Protein [Mass/Vol] Protein [Mass/volume ] in Serum or Plasma 6.4-8.9 [facility] RBC Auto (Bld) [#/Vol]Ordere d By: Tenzin Ortiz on 08-01-2024 RBC (Bld) [#/Vol] Erythrocytes [#/volu me] in Blood by Automated count Low 3.90-5.60 [facility] Serum or plasma albumin/glob ulin mass ratioOrdered By: Tenzin Ortiz on 08-01-2024 Albumin/Globulin [Mass ratio] Serum or plasma albumin/globulin mass ratio [facility] Serum or plasma anion gap de terminationOrdered By: Tenzin Ortiz on 08-01-2024 Anion gap [Moles/Vol] Serum or plasma an ion gap determination 6.0-15.0 [facility] Sodium [Moles/volume] in Ser um or PlasmaOrdered By: Tenzin Ortiz on 08-01-2024 Sodium [Moles/Vol] Sodium [Moles/volume ] in Serum or Plasma Low 136-145 [facility] Specific gravity Test strip (U) [Rel density]Ordered By: Tenzin Ortiz on 08-01-2024 Specific gravity (U) [Rel density] Specific gravity of Urine by Test strip 1.001-1.030 [facility] Troponin I High Sensitivityo n 08-01-2024 Troponin I High Sensitivity 42.3 pg/mL High 0.0-20.0 [facility] Comment on above: Result Comment: PERF ORMED BY: [facility] [address] [place] [address] PATHOLOGIST SKILLED NURSING PROFESSIONAL CRISTHIAN HUFF M.D. Performed By: #### G LUBOUBACAR #### Point of Care testing , Troponin I.cardiac [Mass/vol ume] in Serum or Plasma by Detection limit <= 0.01 ng/Ordered By: Tenzin Ortiz on 08-01-2024 Troponin I.cardiac DL <= 0.01 ng/mL [Mass/Vol] Troponin I.cardiac [Mass/volume] in Serum or Plasma by Detection limit <= 0.01 ng/ High 0.0-20.0 [facility] Urea nitrogen [Mass/volume] in Serum or PlasmaOrdered By: Tenzin Ortiz on 08-01-2024 Urea nitrogen [Mass/Vol] Urea nitrogen [Mass/volume] in Serum or Plasma High 7-25 [facility] Urobilinogen Test strip (U) [Mass/Vol]Ordered By: Tenzin Ortiz on 08-01-2024 Urobilinogen (U) [Mass/Vol] Urobilinogen [Mass/volume] in Urine by Test strip Normal [facility] WBC Auto (Bld) [#/Vol]Ordere d By: Tenzin Ortiz on 08-01-2024 WBC (Bld) [#/Vol] Leukocytes [#/volume ] in Blood by Automated count 4.1-10.5 [facility] XR chest 1V portableon 08-01 XR chest 1V portable [facility] [place] [address] XRay Report Signed Patient: Yoel Werner MR#: [id number] : 1985 Acct:[id number] Age/Sex: 39 / M ADM Date: 08/01/24 Loc: ER Room: Type: [facility] ER Attending Dr: Copies to: Tenzin Ortiz Jr, MD Ordering Provider: Tenzin Ortiz Jr, MD Date of Service: 08/01/24 XR/XR chest 1V portable: Shortness of Breath/Dyspnea Plain film chest Single view HISTORY: Shortness of breath for one week COMPARISON: 03/09/2024 FINDINGS: SUPPORT DEVICES: None POSTSURGICAL CHANGES: None HEART: Within normal limits PULMONARY NATALY: Within normal limits MEDIASTINUM: Unremarkable LUNGS AND PLEURA: There are basilar predominant groundglass interstitial prominence. No large pleural effusion. No pneumothorax. BONY STRUCTURES: Intact ADDITIONAL FINDINGS None XR/XR chest 1V portable IMPRESSION: Basilar predominant groundglass parenchymal densities. Consider failure and/or pneumonitis. Impression dictated by: Alec Flynn M.D.08/01/2024 7:39 AM Dictation Location: [place] [address] Transcribed By: [facility] 08/01/24 0739 Dictated By: Alec Flynn DO 08/01/24 0737 Signed By: 08/01/24 0739 Normal [facility] pH Test strip (U)Ordered By: Tenzin Ortiz on 08-01-2024 pH (U) pH of Urine by Test strip 5.0-9.0 [facility] ANTITHROMBIN IIIon ANTITHROMBIN ACTUAL/NORMAL IN PPP BY CHROMOGENIC METHOD 91 % Normal 70-120 [facility] Comment on above: Performed By: #### L [id number] #### [facility] TISSUE TYPING (HISTOTRAC) [address] [place] [address] [facility] APC RESISTANCEon 07-14-2024 ACTIVATED PROTEIN C RESISTANCE (TIME RATIO) IN PPP BY COAG ASSAY 2.5 Normal 2-4.9 [facility] Comment on above: Performed By: #### L [id number] #### [facility] [address] [place] [address] B-TYPE NATRIURETIC PEPTIDEon 07-14-2024 Natriuretic peptide B (Bld) [Mass/Vol] 2079 pg/mL High 0-100 [facility] Comment on above: Performed By: #### L [id number] #### [facility] ([facility]) [address] [place] [address] BILIRUBIN, DIRECTon 07-14-20 Magnesium [Mass/Vol] 0.1 mg/dL Normal 0-0.2 [facility] Comment on above: Performed By: #### L [id number] #### [facility] (BEAKER) [address] [place] [address] C-PEPTIDEon 07-14-2024 C PEPTIDE (NG/ML) IN SER/PLAS 2.3 ng/mL Normal 0.5-3.3 [facility] Comment on above: Result Comment: INTE RPRETIVE INFORMATION: Serum, C-Peptide Reference Interval applies to fasting specimens. To convert to nmol/L, multiply by 0.33 Performed By: [facility] [address] [place] [address] Business Office Manager: Gage Daley MD, PhD CLIA Number: [id number] Performed By: #### L [id number] #### [facility] ([facility]) [address] [place] [address] CBC WITH AUTO DIFFERENTIALon 07-14-2024 Erythrocyte distribution width (RBC) [Ratio] 14.4 % Normal 11.5-15.0 [facility] Comment on above: Performed By: #### L [id number] #### [facility] ([facility]) [address] [place] [address] ERYTHROCYTE MEAN CORPUSCULAR HEMOGLOBIN CONCENTRATION (G/DL) BY AUTOMATED 33.0 g/dL Normal 32.0-35.0 [facility] Comment on above: Performed By: #### L [id number] #### [facility] ([facility]) [address] [place] [address] Hematocrit (Bld) [Volume fraction] 34.2 % Low 39.0-55.0 [facility] Comment on above: Performed By: #### L [id number] #### [facility] ([facility]) [address] [place] [address] Hemoglobin (Bld) [Mass/Vol] 11.3 g/dL Low 13.0-17.0 [facility] Comment on above: Performed By: #### L [id number] #### [facility] ([facility]) [address] [place] [address] IMMATURE PLATELET FRACTION % 2.1 % Normal 0.8-6.3 [facility] Comment on above: Performed By: #### L [id number] #### [facility] ([facility]) [address] [place] [address] MCH (RBC) [Entitic mass] 29.9 pg Normal 27.0-33.0 [facility] Comment on above: Performed By: #### L [id number] #### [facility] ([facility]) [address] [facility] [address] [place] [address] MCV (RBC) [Entitic vol] 90.5 fL Normal 82.0-98.0 [facility] Comment on above: Performed By: #### L [id number] #### [facility] ([facility]) [address] [place] [address] NRBC (PER 100 WBCS) BY AUTOMATED COUNT 0.0 % Normal 0 [facility] Comment on above: Performed By: #### L [id number] #### [facility] ([facility]) [address] [place] [address] PLATELETS (10*3/UL) IN BLOOD AUTOMATED COUNT 93 10*3/uL Low 150-400 [facility] Comment on above: Result Comment: Plat elets checked, no clumps or clots Performed By: #### L [id number] #### [facility] ([facility]) [address] [place] [address] RBC (Bld) [#/Vol] 3.78 10*6/uL Low 4.20-5.70 [facility] Comment on above: Performed By: #### L [id number] #### [facility] [address] [place] [address] WBC (Bld) [#/Vol] 3.92 10*3/uL Low 4.00-10.60 [facility] Comment on above: Performed By: #### L [id number] #### [facility] ([facility] [address] [place] [address] COMPREHENSIVE METABOLIC PANE [facility] 07-14-2024 Albumin [Mass/Vol] 4.1 g/dL Normal 3.5-5.7 [facility] Comment on above: Performed By: #### L [id number] #### [facility] ([facility]) [address] [place] [address] ALP [Catalytic activity/Vol] 68 U/L Normal 34-104 [facility] Comment on above: Performed By: #### L [id number] #### [facility] ([facility]) [address] [place] [address] ALT [Catalytic activity/Vol] 9 U/L Normal 7-52 [facility] Comment on above: Performed By: #### L [id number] #### [facility] ([facility]) [address] [place] [address] Anion gap [Moles/Vol] 13 mmol/L Normal 7-20 [facility] Comment on above: Performed By: #### L [id number] #### [facility] ([facility]) [address] [place] [address] AST [Catalytic activity/Vol] 13 U/L Normal 13-39 [facility] Comment on above: Performed By: #### L [id number] #### [facility] ([facility] [address] [place] [address] Bilirubin [Mass/Vol] 0.5 mg/dL Normal 0.3-1.0 [facility] Comment on above: Performed By: #### L [id number] #### [facility] (BEAK[facility]) [address] [place] [address] Calcium [Mass/Vol] 8.5 mg/dL Low 8.6-10.3 [facility] Comment on above: Performed By: #### L [id number] #### [facility] ([facility]) [address] [place] [address] Chloride [Moles/Vol] 96 mmol/L Low 98-107 [facility] Comment on above: Performed By: #### L [id number] #### [facility] ([facility] [address] [place] [address] CO2 [Moles/Vol] 30 mmol/L Normal 21-[address] [facility] Comment on above: Performed By: #### L [id number] #### [facility] ([facility]) [address] [place] [address] Creatinine [Mass/Vol] 5.89 mg/dL High 0.70-1.30 [facility] Comment on above: Performed By: #### L [id number] #### [facility] ([facility] [address] [place] [address] GLOMERULAR FILTRATION RATE ML/MIN/1.73 SQ M.PREDICTED 11.7 mL/min/1.73m*2 Low >60.0 [facility] Comment on above: Result Comment: [facility]???s estimated glomerular filtration rate (eGFR) will no longer include consideration of race in its calculation. The National Kidney Foundation???s eGFR Task Force developed new recommendations for the estimation of the glomerular filtration rate in the [place] They recommend immediate implementation of the new equation refit without the race variable in all laboratories because the calculation does not include race. In addition to not including race in the calculation and reporting, it included diversity in its development, and has acceptable performance characteristics and potential consequences that do not disproportionately affect any one group of individuals. Performed By: #### L [id number] #### [facility] ([facility]) [address] [place] [address] Glucose [Mass/Vol] 116 mg/dL High 70-100 [facility] Comment on above: Performed By: #### L [id number] #### [facility] ([facility]) [address] [place] [address] Potassium [Moles/Vol] 4.2 mmol/L Normal 3.5-5.1 [facility] Comment on above: Performed By: #### L [id number] #### [facility] (BEAK[facility]) [address] [place] [address] Protein [Mass/Vol] 6.4 g/dL Normal 6.0-8.3 [facility] Comment on above: Performed By: #### L [id number] #### [facility] (BEAK[facility]) [address] [place] [address] Sodium [Moles/Vol] 135 mmol/L Low 136-145 [facility] Comment on above: Performed By: #### L [id number] #### [facility] (BEAKER) [address] [place] [address] Urea nitrogen [Mass/Vol] 40 mg/dL High 7-25 [facility] Comment on above: Performed By: #### L [id number] #### [facility] ([facility]) [address] [place] [address] UREA NITROGEN/CREATININE (MASS RATIO) IN SER/PLAS 6.8 Normal [facility] Comment on above: Performed By: #### L [id number] #### [facility] ([facility]) [address] [place] [address] FACTOR 5 LEIDENon 07-14-2024 FACTOR V LEIDEN Negative Normal [facility] Comment on above: Result Comment: Indication for testing: Assess genetic risk for thrombosis. NEGATIVE: The factor V Leiden variant, c.1601G>A; p.Lsc567Pvg, was not detected. This does not exclude a genetic cause for thrombophilia. If this individual has had a previous venous thromboembolism, this negative result is unlikely to significantly reduce the risk for recurrence; thus, future clinical management to reduce recurrence should not be altered. This result has been reviewed and approved by Leilani Adair M.D., Ph.D. BACKGROUND INFORMATION: Factor V Leiden (F5) R506Q Mutation CHARACTERISTICS: Venous thromboembolism (VTE) is multifactorial caused by a combination of genetic and environmental factors. The Factor V Leiden (FVL) variant is the most common cause of inherited VTEs, accounting for over 90 percent of activated protein C (APC) resistance. Because the FVL variant eliminates the APC cleavage site, factor V is inactivated slower, thus persisting longer in blood circulation, leading to more thrombin production. Other genetic risk factors for VTE include, male sex and variants in antithrombin, protein C, protein S, or factor XIII. Non-genetic risk factors include, age, smoking, prolonged immobilization, malignant neoplasms, surgery, , oral contraceptives, estrogen replacement therapy, tamoxifen and raloxifene therapy. INCIDENCE OF FACTOR V LEIDEN VARIANT: Approximately 5 percent of Caucasians, 2 percent of Hispanics, 1 percent of Americans and 0.5 percent of Asians are heterozygous; homozygosity occurs in 1 in 1500 Caucasians. INHERITANCE: Semi-dominant; both heterozygotes and homozygotes are at increased risk for VTE. PENETRANCE: Lifetime risk of VTE is 10 percent for heterozygotes and 80 percent of homozygotes. CAUSE: The pathogenic gain of function in the F5 gene variant c.1601G>A (p.Ncg812Phh). Legacy nomenclature: R506Q (1691G>A) CLINICAL SENSITIVITY: 20-50 percent of individuals with an isolated VTE have the FVL variant. METHODOLOGY: Polymerase chain reaction and fluorescence monitoring. ANALYTICAL SENSITIVITY AND SPECIFICITY: 99 percent. LIMITATIONS: Diagnostic errors can occur due to rare sequence variations. F5 gene mutations, other than p.Bkv776Vme, will not be detected. This test was developed and its performance characteristics determined by [facility]. It has not been cleared or approved by the US Food and Drug Administration. This test was performed in a CLIA certified laboratory and is intended for clinical purposes. Counseling and informed consent are recommended for genetic testing. Consent forms are available online. Performed By: [facility] [address] [place] [phone] Business Office Manager: Gage Daley MD, PhD CLIA Number: [id number] Performed By: #### L [id number] #### [facility] [address] [place] [address] FACTOR V SPECIMEN Whole Blood Normal [facility] Comment on above: Performed By: #### L [id number] #### [facility] [address] [place] [address] HEMOGLOBIN A1Con 07-14-2024 Glucose [Mass/Vol] 186 mg/dL Normal [facility] Comment on above: Performed By: #### L [id number] #### [facility] ([facility]) [address] [place] [address] HbA1c (Bld) [Mass fraction] 8.1 % High 4.0-6.0 [facility] Comment on above: Performed By: #### L [id number] #### [facility] ([facility]) [address] [place] [address] HEPATITIS A ANTIBODY, IGMon 07-14-2024 HEPATITIS A VIRUS IGM AB PRESENCE IN SER/PLAS Non-Reactive Normal Nonreactive [facility] Comment on above: Performed By: #### L [id number] #### [facility] ([facility]) [address] [place] [address] HEPATITIS B CORE ANTIBODY, I GMon 07-14-2024 HEPATITIS B VIRUS CORE IGM AB PRESENCE IN SER/PLAS BY IMMUNOASSY Negative Normal Negative [facility] Comment on above: Result Comment: INTE RPRETIVE INFORMATION: Hepatitis B Core Ab, IgM This assay should not be used for blood donor screening, associated re-entry protocols, or for screening Human Cells, Tissues and Cellular and Tissue-Based Products (HCT/P). Performed By: [facility] [address] [place] [id number] Business Office Manager: Gage Daley MD, PhD CLIA Number: [id number] Performed By: #### L [id number] #### [facility] [address] [place] [address] HEPATITIS B CORE ANTIBODY, T OTALon 07-14-2024 HEPATITIS B VIRUS CORE AB (PRESENCE) IN SER/PLAS BY IMM Non-Reactive Normal Nonreactive [facility] Comment on above: Performed By: #### L [id number] #### [facility] ([facility]) [address] [place] [address] HEPATITIS B SURFACE ANTIBODY QUANTon 07-14-2024 HEPATITIS B VIRUS SURFACE AB (MIU/ML) IN SERUM 1.55 mIU/mL Normal [facility] Comment on above: Result Comment: INTE RPRETATION: NONREACTIVE <8.00 mIU/mL INDETERMINATE 8.00 - 12.00 mIU/mL REACTIVE >12 mIU/mL Performed By: #### L [id number] #### [facility] (HISTOTRAC) [address] [place] [address] [facility] HEPATITIS B SURFACE ANTIGENo n 07-14-2024 HEPATITIS B VIRUS SURFACE AG PRESENCE IN SERUM Non-Reactive Normal Nonreactive [facility] Comment on above: Performed By: #### L [id number] #### [facility] (HISTOTRAC) [address] [place] [address] [place] HEPATITIS C ANTIBODYon 07-14 HEPATITIS C VIRUS AB PRESENCE IN SERUM Non-Reactive Normal Nonreactive [facility] Comment on above: Performed By: #### L [id number] #### [facility] ([facility]) [address] [place] [address] HIV COMBO 4Gon 07-14-2024 HIV COMBO 4G Negative Normal Negative [facility] Comment on above: Performed By: #### L [id number] #### [facility] ([facility]) [address] [place] [address] HLA ABC CLASS I TYPINGon A*-1 2 Normal [facility] Comment on above: Performed By: #### L [id number] #### [facility] [address] [place] [address] A*-2 29 Normal [facility] Comment on above: Performed By: #### L [id number] #### [employer] [facility] [address] [place] [address] B*-1 44 Normal [facility] Comment on above: Performed By: #### L [id number] #### [facility] [address] [place] [address] B*-2 58 [facility] Comment on above: Performed By: #### L [id number] #### [facility] [address] [place] [address] BW*-1 4 [facility] Comment on above: Performed By: #### L [id number] #### [facility] [address] [place] [address] C*-1 07 [facility] Comment on above: Performed By: #### L [id number] #### [facility] [address] [place] [address] C*-2 16 [facility] Comment on above: Performed By: #### L [id number] #### [facility] [address] [place] [address] HLA ABC CLASS I TYPING TEST METHOD Class I typing by PCR-SSOP [facility] Comment on above: Performed By: #### L [id number] #### [facility] [address] [place] [address] HLA ABC TESTED DATE [facility] Comment on above: Performed By: #### L [id number] #### [facility] [address] [place] [address] CLASS II TYPINGon DPB1*-1 02:01 [facility] Comment on above: Performed By: #### L [id number] #### [facility] [address] [place] [address] DQA1*-1 03 [facility] Comment on above: Performed By: #### L [id number] #### [facility] [address] [place] [address] DQA1*-2 04 [facility] Comment on above: Performed By: #### L [id number] #### [facility] [address] [place] [address] DQB1*-1 8 [facility] Comment on above: Performed By: #### L [id number] #### [facility] [address] [place] [address] DQB1*-2 4 [facility] Comment on above: Performed By: #### L [id number] #### [facility] [address] [place] [address] DRB1*-1 4 [facility] Comment on above: Performed By: #### L [id number] #### [facility] [address] [place] [address] DRB1*-2 8 [facility] Comment on above: Performed By: #### L [id number] #### [facility] [address] [place] [address] DRB4*-1 53 [facility] Comment on above: Performed By: #### L [id number] #### [facility] [address] [place] [address] CLASS II TYPING TEST METHOD Class II typing by PCR-SSOP [facility] Comment on above: Performed By: #### L [id number] #### [facility] [address] [place] [address] TESTED DATE Normal [facility] Comment on above: Performed By: #### L [id number] #### [facility] [address] [place] [address] LIPID PANELon 07-14-2024 CHOL/HDL 3.5 mg/dL [facility] Comment on above: Performed By: #### L [id number] #### [facility] ([facility]) [address] [place] [address] Cholesterol [Mass/Vol] 112 mg/dL Low 120-200 [facility] Comment on above: Performed By: #### L [id number] #### [facility] ([facility]) [address] [place] [address] Magnesium [Mass/Vol] 44 mg/dL Normal 40-149 [facility] Comment on above: Result Comment: TRIG LYCERIDE REFERENCE RANGE: 20 YEARS AND OLDER CARDIOVASCULAR RISK LESS THAN 150 mg/dL LOW RISK 150 TO 199 mg/dL BORDERLINE RISK 200 mg/dL AND GREATER HIGH RISK Performed By: #### L [id number] #### [facility] (BEAKER) [address] [facility] [address] Magnesium [Mass/Vol] 71 mg/dL Normal 0-160 [facility] Comment on above: Performed By: #### L [id number] #### [facility] (BEAKER) [address] [place] [address] Magnesium [Mass/Vol] 32 mg/dL Normal 23-92 [facility] Comment on above: Performed By: #### L [id number] #### [facility] (BEAKER) [address] [place] [address] NON HDL CHOL. (LDL+VLDL) 80 Normal [facility] Comment on above: Performed By: #### L [id number] #### [facility] (BEAKER) [address] [place] [address] TOTAL VLDL-C 9 mg/dL Normal 0-40 [facility] Comment on above: Performed By: #### L [id number] #### [facility] (BEAKER) [address] [facility] [place] [address] Labon 07-14-2024 Lab [id number] Yoel Werner 1985 M Date Provider Department Center 07/14/2024 2245-[facility] OPD LAB RESOURCE [facility] [place] [facility] No family history on file Normal [facility] MANUAL DIFFERENTIALon 2023 BASOPHILS (10*3/UL) IN BLOOD BY CALCULATION 0.06 10*3/uL Normal 0.00-0.20 [facility] Comment on above: Performed By: #### L [id number] #### [facility] [address] [place] [address] BASOPHILS/100 LEUKOCYTES IN BLOOD BY AUTOMATED COUNT 1.5 % High 0.0-1.0 [facility] Comment on above: Performed By: #### L [id number] #### [facility] [address] [place] [address] EOSINOPHILS (10*3/UL) IN BLOOD BY CALCULATION 0.16 10*3/uL Normal 0.00-0.50 [facility] Comment on above: Performed By: #### L [id number] #### [facility] [address] [place] [address] EOSINOPHILS/100 LEUKOCYTES IN BLOOD BY AUTOMATED COUNT 4.1 % Normal 0.0-6.0 [facility] Comment on above: Performed By: #### L [id number] #### [facility] [address] [place] [address] IMMATURE GRANULOCYTES (10*3/UL) IN BLOOD BY CALCULATION 0.01 10*3/uL Normal 0.00-0.20 [facility] Comment on above: Performed By: #### L [id number] #### [facility] [address] [place] [address] IMMATURE GRANULOCYTES/100 LEUKOCYTES IN BLOOD BY AUTOMATED COUNT 0.3 % Normal 0.0-1.0 [facility] Comment on above: Performed By: #### L [id number] #### [facility] [address] [place] [address] LYMPHOCYTES (10*3/UL) IN BLOOD BY CALCULATION 1.08 10*3/uL Low 1.20-4.00 [facility] Comment on above: Performed By: #### L [id number] #### [facility] [address] [place] [address] LYMPHOCYTES/100 LEUKOCYTES IN BLOOD BY AUTOMATED COUNT 27.6 % Normal 20.0-45.0 [facility] Comment on above: Performed By: #### L [id number] #### [facility] [address] [place] [address] MONOCYTES (10*3/UL) IN BLOOD BY CALCUATION 0.25 10*3/uL Normal 0.10-1.00 [facility] Comment on above: Performed By: #### L [id number] #### [facility] [address] [place] [address] MONOCYTES/100 LEUKOCYTES IN BLOOD BY AUTOMATED COUNT 6.4 % Normal 5.0-12.0 [facility] Comment on above: Performed By: #### L [id number] #### [facility] [address] [place] [address] NEUTROPHILS (10*3/UL) IN BLOOD BY CALCULATION 2.4 10*3/uL Normal 1.6-7.6 [facility] Comment on above: Performed By: #### L [id number] #### [facility] [address] [place] [address] NEUTROPHILS/100 LEUKOCYTES IN BLOOD BY AUTOMATED COUNT 60.1 % Normal 40.0-72.0 [facility] Comment on above: Performed By: #### L [id number] #### [facility] [address] [place] [address] MTHFR 2 VARIANTSon 4 MTHFR INTERP See Note Normal [facility] Comment on above: Result Comment: Indication for testing: Determine genetic contribution to hyperhomocysteinemia. 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 Homozygosity for the common c.665C>T variant is observed in 12 percent of Caucasians and 25 percent of individuals of ancestry. Since this genotype may be associated with mild to moderate increased plasma homocysteine levels, fasting total plasma homocysteine levels should be measured. Genetic consultation is recommended. This result has been reviewed and approved by Leilani Adair M.D., Ph.D. Background Information: Methylenetetrahydrofolate Reductase (MTHFR) 2 Variants Characteristics: Variants in the MTHFR gene may reduce enzyme activity contributing to hyperhomocysteinemia. Although hyperhomocysteinemia was previously reported to be a risk factor for many conditions, especially venous thrombosis and cardiovascular disease, recent meta-analysis casts doubt on whether lifelong moderate homocysteine elevation has an effect on cardiovascular disease. The [employer] Practice Guidelines indicate that individuals with elevated homocysteine and two copies of the c.665C>T variant have an odds ratio of 1.27 for venous thromboembolism. Thus, they recommend MTHFR genotyping not be ordered as part of a routine evaluation for recurrent loss or thromobophilia due to questionable clinical significance. Incidence: The allele frequency of the c.665C>T variant is 0.35 in Caucasians, 0.5 in Hispanics, and 0.12 in Americans. Inheritance: Autosomal recessive; two copies of the c.665C>T variant may be a contributing factor to hyperhomocysteinemia. Variants Tested: c.665C>T(p.Epo723Hhp) and c.1286A>C(p.Ube219Vvw). (legacy names C677T and T4680K, respectively). Clinical Sensitivity: Undefined; hyperhomocysteinemia is caused by genetic, physiologic and environmental factors. MTHFR variants are only one contributing factor. Methodology: Polymerase chain reaction (PCR) and fluorescence monitoring. Analytical Sensitivity and Specificity: 99 percent. Limitations: Only two MTHFR gene variants (c.665C>T and c.1286A>C) are tested. Diagnostic errors can occur due to rare sequence variations. This test was developed and its performance characteristics determined by [facility]. It has not been cleared or approved by the [place] Food and Drug Administration. This test was performed in a CLIA certified laboratory and is intended for clinical purposes. Counseling and informed consent are recommended for genetic testing. Consent forms are available online. Performed By: [facility] [address] [place] [id number] Business Office Manager: Gage Daley MD, PhD CLIA Number: [id number] Performed By: #### L [id number] #### [facility] ([facility]) [address] MTHFR PCR SPECIMEN Whole Blood Normal [facility] Comment on above: Performed By: #### L [id number] #### [facility] ([facility]AC) [address] MTHFR VARIANT: C.1286A>C Negative Normal [facility] Comment on above: Performed By: #### L [id number] #### [facility] T[facility]UE [facility]YP[facility] ([facility]) [address] MTHFR VARIANT: C.665C>T Homozygous Normal [facility] Comment on above: Performed By: #### L [id number] #### [facility]YP[facility] ([facility]) [address] PANEL REACTIVE ANTIBODYon HOLD SPECIMEN Hold for add-ons. Normal [facility] Comment on above: Result Comment: Auto resulted. Performed By: #### L [id number] #### [facility]YP[facility] ([facility]IST[facility]RAC) [address] PROTEIN C ACTIVITYon 024 PROTEIN C ACTUAL/NORMAL IN PPP BY COAGULATION ASSAY 89 % Normal 60-140 [facility] Comment on above: Performed By: #### L [id number] #### [facility] TISSUE TYPING ([facility]IST[facility]RAC) [address] PROTEIN S ACTIVITYon 024 PROTEIN S ACTUAL/NORMAL IN PPP BY COAGULATION ASSAY 83 % Normal 60-165 [facility] Comment on above: Performed By: #### L [id number] #### [facility]YP[facility] ([facility]) [address] PROTHROMBIN GENE MUTATIONon 07-14-2024 PROTHROMBIN (F2) [id number] VARIANT Negative Normal [facility] Comment on above: Result Comment: Indication for testing: Assess genetic risk for thrombosis. NEGATIVE: The Factor II, prothrombin [id number] mutation, was not detected. Other causes of elevated prothrombin levels and hereditary forms of venous thrombosis have not been excluded. Recommendations: If clinically indicated, testing for other inherited or acquired thrombophilic disorders is recommended including DNA testing for the factor V Leiden mutation, measurement of total plasma homocysteine concentration, serological assays for anticardiolipin antibodies, multiple phospholipid-dependent coagulation assays for lupus inhibitor, protein C activity, protein S activity or free protein S antigen, and antithrombin activity. This result has been reviewed and approved by Ilene Frye M.D., Ph.D. 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 The expression of Factor II thrombophilia is impacted by coexisting genetic thrombophilic disorders, acquired thrombophilic disorders (eg, malignancy, hyperhomocysteinemia, high factor VIII levels), and circumstances including: , oral contraceptive use, hormone replacement therapy, selective estrogen receptor modulators, travel, central venous catheters, surgery, and organ transplantation. INCIDENCE: Approximately 2 percent of Caucasians and 0.3 percent of Americans are heterozygous; homozygosity occurs in 1 in 10,000 individuals. INHERITANCE: Incomplete autosomal dominant. PENETRANCE: The risk of thrombosis is increased 2-4 fold for heterozygotes and further increased for homozygotes. CAUSE: Homozygosity or heterozygosity for F2 c.*97G>A (R36287W). PATHOGENIC VARIANT TESTED: F2 c.*97G>A (D90605E). CLINICAL SENSITIVITY FOR VENOUS THROMBOSIS: Approximately 10 percent. METHODOLOGY: Polymerase chain reaction and fluorescence monitoring. ANALYTICAL SENSITIVITY AND SPECIFICITY: 99 percent. LIMITATIONS: Diagnostic errors can occur due to rare sequence variations. F2 gene variants, other than c.*97G>A (Q21349V), will not be detected. This test was developed and its performance characteristics determined by [facility]. It has not been cleared or approved by the US Food and Drug Administration. This test was performed in a CLIA certified laboratory and is intended for clinical purposes. Counseling and informed consent are recommended for genetic testing. Consent forms are available online. Performed By: [facility] [address] [place] [address] Business Office Manager: Gage Daley MD, PhD CLIA Number: [id number] Performed By: #### L [id number] #### [facility]) [address] [place] [address] PT PCR SPECIMEN Whole Blood [facility] Comment on above: Performed By: #### L [id number] #### [facility]) [address] [place] [address] PROTIME-INRon 07-14-2024 INR IN PPP BY COAGULATION ASSAY 1.29 High 0.90-1.10 [facility] Comment on above: Result Comment: ACCC P RECOMMENDED INR FOR [facility]ARF[facility]IN THERAPY CONDITION INR PROPHYLAXIS OF VENOUS THROMBOSIS 2-3 (HIGH-RISK SURGERY) TREATMENT OF VENOUS THROMBOSIS 2-3 TREATMENT OF PULMONARY EMBOLISM 2-3 PREVENTION OF SYSTEMIC EMBOLISM: 2-3 ACUTE MYOCARDIAL INFARCTION TISSUE HEART VALVES VALVULAR HEART DISEASE ATRIAL FIBRILLATION RECURRENT SYSTEMIC EMBOLISM MECHANICAL HEART VALVE 2.5-3.5 FROM: ORAL ANTICOAGULANTS. MECHANISM OF ACTION, CLINICAL EFFECTIVENESS, AND OPTIMAL THERAPEUTIC RANGE. CHEST 1995;108:231S-246S. Performed By: #### L [id number] #### [facility]YP[facility] ([facility]ISTOTRAC) [address] PROTHROMBIN TIME (PT) IN PPP BY COAGULATION ASSAY 16.0 Seconds High 12.3-14.8 [facility] Comment on above: Performed By: #### L [id number] #### [facility] TISSUE [facility]YP[facility] ([facility]ISTOTRAC) [address] [place] [address] [place] PSA, SCREENINGon 07-14-2024 PROSTATE SPECIFIC AG (NG/ML) IN SER/PLAS 0.2 ng/mL Low 0.4-4 [facility] Comment on above: Performed By: #### L [id number] #### [facility] ([facility]AKER) [address] [place] [address] SINGLE ANTIGEN CLASS Ion AB SCREEN COMMENTS No Specificites Found Normal [facility] Comment on above: Performed By: #### L [id number] #### [facility] TISSUE TYPING ([facility]OTRAC) [address] Performed By: #### L [id number] #### [facility] [address] [place] [address] CLASS I TESTED DATE Normal [facility] Comment on above: Performed By: #### L [id number] #### [facility] TISSUE [facility]YPING ([facility]RAC) [address] [place] [address] [facility] CPRA 0 Normal [facility] Comment on above: Performed By: #### L [id number] #### [facility] TISSUE TYPING ([facility]RAC) [address] [place] [address] [facility] Performed By: #### L [id number] #### [facility] [address] [place] [address] SIGNED BY Signed by Govind tovar CHT([facility]) VALERIANO(ASCP), Fiction And Nonfiction Prose Writer Transplant Immunology [facility] Comment on above: Result Comment: Clas s I Antigen Microbeads Performed By: #### L [id number] #### [facility] TISSUE TYPING ([facility]RAC) [address] [place], [place] [address] Performed By: #### L [id number] #### [facility] [address] [place] [address] SINGLE ANTIGEN CLASS 1 TEST METHOD Class I Single Antigen Normal [facility] Comment on above: Performed By: #### L [id number] #### [facility] TISSUE TYPING ([facility]) [address] [place] [address] [facility] SINGLE ANTIGEN CLASS IIon CLASS II TESTED DATE [facility] Comment on above: Performed By: #### L [id number] #### [facility] [address] [place] [address] SINGLE ANTIGEN CLASS 2 TEST METHOD Class II Single Antigen Normal [facility] Comment on above: Result Comment: Clas s II Antigen Microbeads Performed By: #### L [id number] #### [facility] [address] [place] [address] TESTOSTERONE, FREE AND TOTAL , AND SHBGon 07-14-2024 SEX HORMONE BINDING GLOBULIN (NMOL/L) IN SER/PLAS 48 nmol/L Normal 17-56 [facility] Comment on above: Performed By: #### L [id number] #### [facility] [address] [place] [address] TESTOSTERONE (NG/DL) IN SER/PLAS 554 ng/dL Normal 249-836 [facility] Comment on above: Performed By: #### L [id number] #### [facility] [address] [place] [address] TESTOSTERONE FREE (NG/ML) IN SER/PLAS 92.7 pg/mL Normal 47.0-244.0 [facility] Comment on above: Result Comment: The concentration of free testosterone is derived from a mathematical expression based on the constant for the binding of testosterone to albumin and/or sex hormone binding globulin. Test Performed by [employer] [address] [place] [id number] - Released 07/14/2024 20:06 Performed By: #### L [id number] #### [facility] [address] [place] [address] TYPE AND SCREENon 07-14-2024 AB SCREEN Negative Normal [facility] Comment on above: Performed By: #### L [id number] #### [facility] [address] [place] [address] ABO group Nom (Bld) A Normal [facility] Comment on above: Performed By: #### L [id number] #### [facility] [address] [place] [address] RH TYPE IN BLOOD Positive Normal [facility] Comment on above: Performed By: #### L [id number] #### [facility] [address] [place] [address] A1C with Estimated Average G cb 06-22-2024 Glucose [Mass/Vol] 209 mg/dL Normal [facility] Comment on above: Result Comment: PERF ORMED BY: [facility] [address] [place] [address] PATHOLOGIST SKILLED NURSING PROFESSIONAL LEVY GILES M.D. Performed By: #### B ROLL HANDLER, CMP, CBC, HS TROP #### [facility] [address] HbA1c (Bld) [Mass fraction] 8.9 % High 4.3-5.6 [facility] Comment on above: Result Comment: Incr eased risk for diabetes: 5.7 - 6.4 diabetes: >6.4 glycemic control for adults with diabetes: <7.0 Performed By: #### B ROLL HANDLER, CMP, CBC, HS TROP #### [facility] [address] Alanine aminotransferase [En zymatic activity/volume] in Serum or PlasmaOrdered By: Dorene Valenzuela on 06-22-2024 ALT [Catalytic activity/Vol] Alanine aminotransferase [Enzymatic activity/volume] in Serum or Plasma 7-52 [facility] Albumin [Mass/volume] in Ser um or Plasma by Bromocresol green (BCG) dye binding methoOrdered By: Dorene Valenzuela on 06-22-2024 Albumin BCG dye [Mass/Vol] Albumin [Mass/volume] in Serum or Plasma by Bromocresol green (BCG) dye binding metho 3.5-5.7 [facility] Alkaline phosphatase [Enzyma tic activity/volume] in Serum or PlasmaOrdered By: Dorene Valenzuela on 06-22-2024 ALP [Catalytic activity/Vol] Alkaline phosphatase [Enzymatic activity/volume] in Serum or Plasma 34-104 [facility] Aspartate aminotransferase [ Enzymatic activity/volume] in Serum or PlasmaOrdered By: Dorene Valenzuela on 06-22-2024 AST [Catalytic activity/Vol] Aspartate aminotransferase [Enzymatic activity/volume] in Serum or Plasma Low 13-39 [facility] Basophils Auto (Bld) [#/Vol] Ordered By: Dorene Valenzuela on 06-22-2024 Basophils (Bld) [#/Vol] Automated basophil count 0.0-0.2 [facility] Basophils Auto (Bld) [#/Vol] on 06-22-2024 Basophils (Bld) [#/Vol] Automated basophil count 0.0-0.1 [facility] Basophils/100 WBC Auto (Bld) Ordered By: Dorene Valenzuela on 11-04-2024 Basophils/100 WBC (Bld) Automated basophil % . [facility] Basophils/100 WBC Auto (Bld) on 06-22-2024 Basophils/100 WBC (Bld) Automated basophil % 0. 2-2.0 [facility] Bilirubin.total [Mass/volume ] in Serum or PlasmaOrdered By: Dorene Valenzuela on 06-22-2024 Bilirubin [Mass/Vol] Bilirubin.total [Mass/volume] in Serum or Plasma 0.3-1.0 [facility] Blood Cultureon 06-22-2024 Bacteria identified Cx Nom (Bld) NO GROWTH 5 DAYS PERFORMED BY: [place] [address] PATHOLOGIST SKILLED NURSING PROFESSIONAL LEVY GILES M.D. Normal [facility] Comment on above: Performed By: #### B ROLL HANDLER, CMP, CBC, HS TROP #### [facility] [address] [place] [address] Blood estimated average gluc ose determination by estimation from glycated hemoglobinOrdered By: Dorene Valenzuela on 06-22-2024 Average glucose Estimated from glycated hemoglobin (Bld) [Mass/Vol] Glucose mean value [Mass/volume] in Blood Estimated from glycated hemoglobin [facility] C-peptide measurementOrdered By: Dorene Valenzuela on 06-22-2024 C-Peptide 3.1 ng/mL Normal 1.1-4.4 [facility] Comment on above: C-Peptide reference interval is for fasting patients.Performed at: [facility] [id number] Director: Pablito Alexander PhD, Phone: [phone] Result Comment: C-Pe ptide reference interval is for fasting patients. Performed at: [facility] [id number] [employer] Care Specialist: Pablito Alexander PhD, Phone: [phone] PERFORMED BY: [place] [address] PATHOLOGIST SKILLED NURSING PROFESSIONAL LEVY GILES M.D. Performed By: #### C UBLD, LACTIC, CMP #### [facility] [address] [place] [address] [place] C-peptide measurement 3.1 ng/mL 1.1-4.4 [facility] Calcium [Mass/volume] in Ser um or PlasmaOrdered By: Dorene Valenzuela on 06-22-2024 Calcium [Mass/Vol] Calcium [Mass/volume ] in Serum or Plasma Low 8.6-10.3 [facility] Carbon dioxide, total [Moles /volume] in Serum or PlasmaOrdered By: Dorene Valenzuela on 06-22-2024 CO2 [Moles/Vol] Carbon dioxide, tota l [Moles/volume] in Serum or Plasma 21.0-31.0 [facility] Chloride [Moles/volume] in S gretta or PlasmaOrdered By: Dorene Valenzuela on 06-22-2024 Chloride [Moles/Vol] Chloride [Moles/vol ume] in Serum or Plasma Low 98-107 [facility] Complete Blood Count Auto Di ffon 06-22-2024 Basophils (Bld) [#/Vol] 0.1 10*3/uL Normal 0.0-0.2 [facility] Comment on above: Result Comment: PERF ORMED BY: [place] [address] PATHOLOGIST SKILLED NURSING PROFESSIONAL LEVY GILES M.D. Performed By: #### C UBLD, LACTIC, CMP #### [facility] [address] [place] [address] Basophils/100 WBC (Bld) 1.4 % Normal . Karlee levine [facility] Comment on above: Performed By: #### C UBLD, LACTIC, CMP #### [facility] [address] [place] [address] [place] Eosinophils (Bld) [#/Vol] 0.1 10*3/uL Normal 0.0-0.45 [facility] Comment on above: Performed By: #### C UBLD, LACTIC, CMP #### [place] [address] [place] Eosinophils/100 WBC (Bld) 0.9 % Normal . [facility] Comment on above: Performed By: #### C UBLD, LACTIC, CMP #### [address] Erythrocyte distribution width (RBC) [Ratio] 14.2 % Normal 12.0-14.8 [facility] Comment on above: Performed By: #### C UBLD, LACTIC, CMP #### [address] Hematocrit (Bld) [Volume fraction] 32.6 % Low 38.8-50.0 [facility] Comment on above: Performed By: #### C UBLD, LACTIC, CMP #### [address] Hemoglobin (Bld) [Mass/Vol] 11.1 g/dL Low 13.0-17.0 [facility] Comment on above: Performed By: #### C UBLD, LACTIC, CMP #### [address] Lymphocytes (Bld) [#/Vol] 0.6 10*3/uL Low 1.00-4.8 [facility] Comment on above: Performed By: #### C UBLD, LACTIC, CMP #### [address] Lymphocytes/100 WBC (Bld) 7.9 % Normal . [facility] Comment on above: Performed By: #### C UBLD, LACTIC, CMP #### [address] MCH (RBC) [Entitic mass] 30.0 pg Normal 27.5-35.2 [facility] Comment on above: Performed By: #### C UBLD, LACTIC, CMP #### [address] MCV (RBC) [Entitic vol] 87.9 fL Normal 83.5-101 [facility] Comment on above: Performed By: #### C UBLD, LACTIC, CMP #### [address] Mean Corpuscular HGB Conc 34.1 g/dL Normal 32.5-35.6 [facility] Comment on above: Performed By: #### C UBLD, LACTIC, CMP #### [address] Monocytes (Bld) [#/Vol] 0.2 10*3/uL Normal 0.0-0.8 [facility] Comment on above: Performed By: #### C UBLD, LACTIC, CMP #### [address] Monocytes/100 WBC (Bld) 2.2 % Normal . [facility] Comment on above: Performed By: #### C UBLD, LACTIC, CMP #### [address] Neutrophils (Bld) [#/Vol] 6.2 10*3/uL Normal 1.8-7.7 [facility] Comment on above: Performed By: #### C UBLD, LACTIC, CMP #### [address] Neutrophils/100 WBC (Bld) 87.6 % Normal . [facility] Comment on above: Performed By: #### C UBLD, LACTIC, CMP #### [address] NRBC% 0.1 /100{WBC} Normal 0-0.5 [facility] Comment on above: Performed By: #### C UBLD, LACTIC, CMP #### [address] Platelet mean volume (Bld) [Entitic vol] 8.4 fL Normal 6.6-10.1 [facility] Comment on above: Performed By: #### C UBLD, LACTIC, CMP #### [place] [address] [place] Platelets (Bld) [#/Vol] 98 10*3/uL Low 150-450 [facility] Comment on above: Performed By: #### C UBLD, LACTIC, CMP #### [place] [address] [place] RBC (Bld) [#/Vol] 3.71 10*6/uL Low 3.90-5.60 [facility] Comment on above: Performed By: #### C UBLD, LACTIC, CMP #### [address] WBC (Bld) [#/Vol] 7.1 10*3/uL Normal 4.1-10.5 [facility] Comment on above: Performed By: #### C UBLD, LACTIC, CMP #### [address] Comprehensive Metabolic Pane elvin 06-22-2024 Albumin [Mass/Vol] 3.5 g/dL Normal 3.5-5.7 [facility] Comment on above: Performed By: #### C UBLD, LACTIC, CMP #### [address] Albumin/Globulin [Mass ratio] 1.3 {ratio} Normal [facility] Comment on above: Performed By: #### C UBLD, LACTIC, CMP #### [address] ALP [Catalytic activity/Vol] 69 U/L Normal 34-104 [facility] Comment on above: Performed By: #### C UBLD, LACTIC, CMP #### [address] ALT [Catalytic activity/Vol] 9 U/L Normal 7-52 [facility] Comment on above: Performed By: #### C UBLD, LACTIC, CMP #### [address] Anion gap [Moles/Vol] 10.8 mmol/L Normal 6.0-15.0 [facility] Comment on above: Performed By: #### C UBLD, LACTIC, CMP #### [address] AST [Catalytic activity/Vol] 12 U/L Low 13-39 [facility] Comment on above: Performed By: #### C UBLD, LACTIC, CMP #### [address] Bilirubin [Mass/Vol] 0.6 mg/dL Normal 0.3-1.0 [facility] Comment on above: Performed By: #### C UBLD, LACTIC, CMP #### [address] Calcium [Mass/Vol] 7.7 mg/dL Low 8.6-10.3 [facility] Comment on above: Performed By: #### C UBLD, LACTIC, CMP #### [address] Chloride [Moles/Vol] 91 mmol/L Low 98-107 [facility] Comment on above: Performed By: #### C UBLD, LACTIC, CMP #### [address] CO2 [Moles/Vol] 27.6 mmol/L Normal 21.0-31.0 [facility] Comment on above: Performed By: #### C UBLD, LACTIC, CMP #### [address] Creatinine [Mass/Vol] 4.14 mg/dL High 0.70-1.30 [facility] Comment on above: Performed By: #### C UBLD, LACTIC, CMP #### [place] [address] [place] Creatinine Clr Calc Pharmacy 24.94 Normal [facility] Comment on above: Result Comment: PERF ORMED BY: [place] [address] PATHOLOGIST SKILLED NURSING PROFESSIONAL LEVY GILES M.D. Performed By: #### C UBLD, LACTIC, CMP #### [place] [address] [place] GFR/1.73 sq M.predicted MDRD (S/P/Bld) [Vol rate/Area] 17.850 mL/min/{1.73_m2} Normal [facility] Comment on above: Performed By: #### C UBLD, LACTIC, CMP #### [place] [id number] [place] Globulin (S) [Mass/Vol] 2.8 g/dL Normal [facility] Comment on above: Performed By: #### C UBLD, LACTIC, CMP #### [address] Glucose [Mass/Vol] 452 mg/dL High 70-100 [facility] Comment on above: Result Comment: [place] Glucose Reference Range is dependent on time and content of last meal. Glucose of more than 200 mg/dL in a nonstressed, ambulatory subject supports the diagnosis of Diabetes Mellitus. ADA recommended reference range Performed By: #### C UBLD, LACTIC, CMP #### [address] Potassium [Moles/Vol] 3.4 mmol/L Low 3.5-5.1 [facility] Comment on above: Performed By: #### C UBLD, LACTIC, CMP #### [address] Protein [Mass/Vol] 6.3 g/dL Low 6.4-8.9 [facility] Comment on above: Performed By: #### C UBLD, LACTIC, CMP #### [address] Sodium [Moles/Vol] 126 mmol/L Low 136-145 [facility] Comment on above: Performed By: #### C UBLD, LACTIC, CMP #### [address] Urea nitrogen [Mass/Vol] 27 mg/dL High 7-25 [facility] Comment on above: Performed By: #### C UBLD, LACTIC, CMP #### [place] [address] [place] Creatinine [Mass/volume] in Serum or PlasmaOrdered By: Dorene Valenzuela on 06-22-2024 Creatinine [Mass/Vol] Creatinine [Mass/v olume] in Serum or Plasma High 0.70-1.30 [facility] Eosinophils Auto (Bld) [#/Vo l]Ordered By: Dorene Valenzuela on 06-22-2024 Eosinophils (Bld) [#/Vol] Automated eosinophil count 0.0-0.45 [facility] Eosinophils/100 WBC Auto (Bl d)Ordered By: Dorene Valenzuela on 06-22-2024 Eosinophils/100 WBC (Bld) Automated eosinophil % . [facility] Eosinophils/100 WBC Auto (Bl d)on 06-22-2024 Eosinophils/100 WBC (Bld) Automated eosinophil % 0.9-7.0 [facility] Erythrocyte distribution wid th Auto (RBC) [Ratio]Ordered By: Dorene Valenzuela on 06-22-2024 Erythrocyte distribution width (RBC) [Ratio] Erythrocyte distribution width [Ratio] by Automated count 12.0-14.8 [facility] Erythrocyte distribution wid th Auto (RBC) [Ratio]on 06-22-2024 Erythrocyte distribution width (RBC) [Ratio] Erythrocyte distribution width [Ratio] by Automated count 11.0-15.0 [facility] Estimated glomerular filtrat ion rate (GFR) non- Americanon 06-22-2024 GFR/1.73 sq M.predicted among non-blacks MDRD (S/P/Bld) [Vol rate/Area] Estimated glomerular filtration rate (GFR) non- Low >=60 mL/min/1.73m 2 [facility] Globulin Calc (S) [Mass/Vol] Ordered By: Dorene Valenzuela on 06-22-2024 Globulin (S) [Mass/Vol] Serum globulin measurement by calculation (mass/volume) [facility] Globulin Calc (S) [Mass/Vol] on 06-22-2024 Globulin (S) [Mass/Vol] Serum globulin measurement by calculation (mass/volume) [facility] Glucose Glucometer (BldC) [M ass/Vol]Ordered By: Dorene Valenzuela on 06-22-2024 Glucose [Mass/Vol] Capillary blood gluc ose measurement by glucometer (mass/volume) [facility] Comment on above: Random Glucose Refer ence Range is dependent on time and content of last meal. Glucose of more than 200 mg/dL in a nonstressed, ambulatory subject supports the diagnosis of Diabetes Mellitus. Glucose Poct Glucometerson 1 08-22-2023 Glucose [Mass/Vol] 285 mg/dL Normal [facility] Comment on above: Result Comment: [place] om Glucose Reference Range is dependent on time and content of last meal. Glucose of more than 200 mg/dL in a nonstressed, ambulatory subject supports the diagnosis of Diabetes Mellitus. PERFORMED BY: [facility] [address] [place] [address] PATHOLOGIST SKILLED NURSING PROFESSIONAL LEVY GILES M.D. Performed By: #### C UBLD, LACTIC, CMP #### [facility] [address] Glucose [Mass/volume] in Ser um or PlasmaOrdered By: Dorene Valenzuela on 06-22-2024 Glucose [Mass/Vol] Glucose [Mass/volume ] in Serum or Plasma High 70-100 [facility] Comment on above: ADA recommended refe rence rangeRandom Glucose Reference Range is dependent on time and content of last meal. Glucose of more than 200 mg/dL in a nonstressed, ambulatory subject supports the diagnosis of Diabetes Mellitus. Hematocrit Auto (Bld) [Volum e fraction]Ordered By: Dorene Valenzuela on 06-22-2024 Hematocrit (Bld) [Volume fraction] Hematocrit [Volume Fraction] of Blood by Automated count Low 38.8-50.0 [facility] Hematocrit Auto (Bld) [Volum e fraction]on 06-22-2024 Hematocrit (Bld) [Volume fraction] Hematocrit [Volume Fraction] of Blood by Automated count Low 42.0-54.0 [facility] Hemoglobin A1c/Hemoglobin.to albert in BloodOrdered By: Dorene Valenzuela on 06-22-2024 HbA1c (Bld) [Mass fraction] Hemoglobin A1c percentage High 4.3-5.6 [facility] Comment on above: Increased risk for d iabetes: 5.7 - 6.4diabetes: >6.4glycemic control for adults with diabetes: <7.0 Hemoglobin [Mass/volume] in BloodOrdered By: Dorene Valenzuela on 06-22-2024 Hemoglobin (Bld) [Mass/Vol] Hemoglobin [Mass/volume] in Blood Low 13.0-17.0 [facility] Hemoglobin [Mass/volume] in Bloodon 11-04-2024 Hemoglobin (Bld) [Mass/Vol] Hemoglobin [Mass/volume] in Blood Low 14.0-18.0 [facility] - Chemistry and C hemistry - challengeon 06-22-2024 Bilirubin Ql (U) Negative NEGATIVE [place] Glucose (U) [Mass/Vol] 500 mg/dL Abnormal [facility] Ketones Ql (U) Negative NEGATIVE [facility] pH (U) 7.5 [pH] 5.0-9.0 [facility] Specific gravity (U) [Rel density] 1.020 1.005-1.025 [facility] Urobilinogen Qn (U) 0.2 {Tawana'U}/dL 0.2-1.0 [facility] Lactate [Moles/Vol] 0.8 mmol/L 0.4-2.0 [facility] Albumin [Mass/Vol] 3.7 g/dL 3.4-5.0 [facility] ALP [Catalytic activity/Vol] 100 U/L 46-116 [facility] ALT [Catalytic activity/Vol] 11 U/L Low 16-63 [facility] AST [Catalytic activity/Vol] 16 U/L 15-37 [facility] Bilirubin [Mass/Vol] 0.6 mg/dL 0.2-1.0 [facility] Calcium [Mass/Vol] 9.4 mg/dL 8.5-10.1 [facility] Chloride [Moles/Vol] 102 mmol/L 98-107 [facility] CO2 [Moles/Vol] 22.7 mmol/L 21.0-32.0 [place] Creatinine [Mass/Vol] 8.68 mg/dL Critically high 0.70-1.30 [facility] Comment on above: RESULTS CALLED TO ALYSIA MATAMOROS RN GFR/1.73 sq M.predicted MDRD (S/P/Bld) [Vol rate/Area] 8 mL/min/{1.73_m2} Low >=60 mL/min/1.73m 2 [facility] Glucose [Mass/Vol] 127 mg/dL High 74-106 [facility] Lipase [Catalytic activity/Vol] 12.0 U/L Low 16.0-77.0 [facility] Magnesium [Mass/Vol] 2.3 mg/dL 1.8-2.4 [facility] Potassium [Moles/Vol] 4.4 mmol/L 3.5-5.1 [facility] Protein [Mass/Vol] 7.9 g/dL 6.4-8.2 [facility] Sodium [Moles/Vol] 142 mmol/L 136-145 [facility] Urea nitrogen [Mass/Vol] 63.0 mg/dL High 7.0-18.0 [facility] Urea nitrogen/Creatinine [Mass ratio] 7.3 mg/mg [facility] - Hematology and Cell countson 06-22-2024 Immature granulocytes/100 WBC (Bld) 0.1 % 0.0-0.5 [facility] - Microbiology an d Antimicrobial susceptibilityOrdered By: Dorene Valenzuela on 06-22-2024 Bacteria identified Cx Nom (Bld) NO GROWTH 5 DAYS [facility] - Specimen inform ationon 06-22-2024 Appearance (U) CLEAR CLEAR [facility] Color (U) LT. YELLOW YELLOW [facility] - Urinalysison Leukocyte esterase Test strip Ql (U) Negative NEGATIVE [facility] Mucus Ql (Urine sed) SMALL Abnormal NONE SEEN [facility] Nitrite Ql (U) Negative NEGATIVE [facility] Protein Ql (U) >=300 mg/dL Abnormal NEG/TRACE [facility] Leukocytes [#/volume] correc celena for nucleated erythrocytes in Blood by Automated counOrdered By: Dorene Valenzuela on 06-22-2024 WBC corrected for nucl RBC Auto (Bld) [#/Vol] Leukocytes [#/volume] corrected for nucleated erythrocytes in Blood by Automated coun 4.1-10.5 [facility] Leukocytes [#/volume] correc celena for nucleated erythrocytes in Blood by Automated counon 06-22-2024 WBC corrected for nucl RBC Auto (Bld) [#/Vol] Leukocytes [#/volume] corrected for nucleated erythrocytes in Blood by Automated coun 4.0-11.0 [facility] Lymphocytes Auto (Bld) [#/Vo l]Ordered By: Dorene Valenzuela on 06-22-2024 Lymphocytes (Bld) [#/Vol] Lymphocytes [#/volume] in Blood by Automated count Low 1.00-4.8 [facility] Lymphocytes Auto (Bld) [#/Vo l]on 06-22-2024 Lymphocytes (Bld) [#/Vol] Lymphocytes [#/volume] in Blood by Automated count Low 1.2-3.8 [facility] Lymphocytes/100 WBC Auto (Bl d)Ordered By: Dorene Valenzuela on 06-22-2024 Lymphocytes/100 WBC (Bld) Lymphocytes/100 leukocytes in Blood by Automated count . [facility] Lymphocytes/100 WBC Auto (Bl d)on 06-22-2024 Lymphocytes/100 WBC (Bld) Lymphocytes/100 leukocytes in Blood by Automated count Low 20.5-60.0 [facility] MCH Auto (RBC) [Entitic mass ]Ordered By: Dorene Valenzuela on 06-22-2024 MCH (RBC) [Entitic mass] MCH [Entitic mass] by Automated count 27.5-35.2 [facility] MCH Auto (RBC) [Entitic mass ]on 06-22-2024 MCH (RBC) [Entitic mass] MCH [Entitic mass] by Automated count 25.9-34.0 [facility] MCHC Auto (RBC) [Mass/Vol]Or dered By: Dorene Valenzuela on 06-22-2024 MCHC (RBC) [Mass/Vol] MCHC [Mass/volume] by Automated count 32.5-35.6 [facility] MCHC Auto (RBC) [Mass/Vol]on 06-22-2024 MCHC (RBC) [Mass/Vol] MCHC [Mass/volume] by Automated count 29.9-35.2 [facility] MCV Auto (RBC) [Entitic vol] Ordered By: Dorene Valenzuela on 06-22-2024 MCV (RBC) [Entitic vol] MCV [Entitic vol ume] by Automated count 83.5-101 [facility] MCV Auto (RBC) [Entitic vol] on 06-22-2024 MCV (RBC) [Entitic vol] MCV [Entitic vol ume] by Automated count 80.0-94.0 [facility] Monocytes Auto (Bld) [#/Vol] Ordered By: Dorene Valenzuela on 06-22-2024 Monocytes (Bld) [#/Vol] Automated blood monocyte count 0.0-0.8 [facility] Monocytes Auto (Bld) [#/Vol] on 06-22-2024 Monocytes (Bld) [#/Vol] Automated blood monocyte count Low 0.3-0.8 [facility] Monocytes/100 WBC Auto (Bld) Ordered By: Dorene Valenzuela on 06-22-2024 Monocytes/100 WBC (Bld) Automated monocyte % . [facility] Monocytes/100 WBC Auto (Bld) on 06-22-2024 Monocytes/100 WBC (Bld) Automated monocyte % 1. 7-12.0 [facility] Neutrophils Auto (Bld) [#/Vo l]Ordered By: Dorene Valenzuela on 06-22-2024 Neutrophils (Bld) [#/Vol] Neutrophils [#/volume] in Blood by Automated count 1.8-7.7 [facility] Neutrophils Auto (Bld) [#/Vo l]on 06-22-2024 Neutrophils (Bld) [#/Vol] Neutrophils [#/volume] in Blood by Automated count 1.4-6.5 [facility] Neutrophils/100 WBC Auto (Bl d)Ordered By: Dorene Valenzuela on 06-22-2024 Neutrophils/100 WBC (Bld) Automated neutrophil % . [facility] Neutrophils/100 WBC Auto (Bl d)on 06-22-2024 Neutrophils/100 WBC (Bld) Automated neutrophil % High 43.0-75.0 [facility] No Panel InformationOrdered By: Dorene Valenzuela on 06-22-2024 Estimated GFR (CKD-EPI) 17.850 mL/Min [facility] Creatinine Clearance (Chem 24.94 [facility] 17.850 mL/Min [facility] 24.94 [facility] NO GROWTH 5 DAYS [place] No Panel Informationon 06-22 Urine Bacteria TRACE #/HPF Abnormal NONE SEEN [facility] Urine Microscopic Review YES [facility] Urine Occult Blood SMALL Abnormal NEGATIVE [facility] Urine Other Casts NONE SEEN #/LPF NONE SEEN [facility] Urine Other Crystals None Seen #/HPF None Seen [facility] Urine RBC 5-10 #/HPF Abnormal 0-2 [facility] Urine Squamous Epithelial Cells RARE #/LPF NONE/RARE [facility] Urine WBC 0-2 #/HPF Abnormal NONE SEEN [facility] NONE SEEN #/LPF NONE SEEN [facility] YES [facility] None Seen #/HPF None Seen [facility] Negative NEGATIVE [facility] TRACE #/HPF Abnormal NONE SEEN [facility] SMALL Abnormal NONE SEEN [facility] CLEAR CLEAR [facility] 5-10 #/HPF Abnormal 0-2 [facility] LT. YELLOW YELLOW [facility] RARE #/LPF NONE/RARE [facility] 500 mg/dL Abnormal NEGATIVE [facility] 0-2 #/HPF Abnormal NONE SEEN [facility] 7.5 5.0-9.0 [facility] >=300 mg/dL Abnormal NEG/TRACE [facility] 1.020 1.005-1.025 [facility] 0.2 EU/dL 0.2-1.0 [facility] 0.8 mmol/L 0.4-2.0 [facility] Eosinophils # (Auto) 0.3 10 3/uL 0.0-0.7 [facility] Ethyl Alcohol Level <3 mg/dL [facility] Comment on above: NOTE: 80 mg/dl is th e legal limit for a blood alcohol level Immature Granulocyte # (Auto) 0.01 10 3/uL 0.00-0.03 [facility] Phosphorus Level 5.4 mg/dL High 2.6-4.7 [place] Troponin I High Sensitivity 50.4 pg/mL 4.0-76.1 [facility] Comment on above: CUT-OFF POINTS HAVE BEEN ESTABLISHED BASED ON THE FOURTHUNIVERSAL DEFINITION OF MYOCARDIAL INFARCTION. THE UPPERREFERENCE LIMIT (URL) OF TROPONIN, DEFINED THE 99THPERCENTILE OF cTnI DISTRIBUTION IN A REFERENCE POPULATION,HAS BEEN CONFIRMED THE DECISION THRESHOLD FOR MIDIAGNOSIS.99TH PERCENTILE = 76.2 PG/MLNOTE: HIGH-SENSITIVITY TROPONIN ASSAY IS NOT INTENDED TO BEUSED IN ISOLATION BUT SHOULD BE INTERPRETED IN CONJUNCTIONWITH OTHER DIAGNOSTIC AND CLINICAL INFORMATION. Venous Blood Partial Pressure CO2 52.6 mm[Hg] High 40.0-52.0 [facility] Venous Blood pH 7.259 Low 7.330-7.430 [place] 52.6 mm[Hg] High 40.0-52.0 [facility] 5.4 mg/dL High 2.6-4.7 [facility] <3 mg/dL [facility] 12.0 U/L Low 16.0-77.0 [facility] 50.4 pg/mL 4.0-76.1 [facility] 2.3 mg/dL 1.8-2.4 [facility] 7.259 Low 7.330-7.430 [facility] 0.3 10 3/uL 0.0-0.7 [facility] 3.7 g/dL 3.4-5.0 [facility] 100 U/L 46-116 [facility] 11 U/L Low 16-63 [facility] 16 U/L 15-37 [facility] 0.01 10 3/uL 0.00-0.03 [facility] 7.3 [facility] 0.1 % 0.0-0.5 [facility] 63.0 mg/dL High 7.0-18.0 [facility] 9.4 mg/dL 8.5-10.1 [facility] 102 mmol/L 98-107 [facility] 22.7 mmol/L 21.0-32.0 [facility] 8.68 mg/dL Critically high 0.70-1.30 [facility] 8 Low >=60 mL/min/1.73m 2 [facility] 127 mg/dL High 74-106 [facility] 4.4 mmol/L 3.5-5.1 [facility] 142 mmol/L 136-145 [facility] 0.6 mg/dL 0.2-1.0 [facility] 7.9 g/dL 6.4-8.2 [facility] Nucleated erythrocytes [Pres ence] in Blood by Automated countOrdered By: Dorene Valenzuela on 06-22-2024 Nucleated RBC Auto Ql (Bld) Nucleated erythrocytes [Presence] in Blood by Automated count 0-0.5 [facility] Platelet mean volume Auto (B ld) [Entitic vol]Ordered By: Dorene Valenzuela on 06-22-2024 Platelet mean volume (Bld) [Entitic vol] Platelet mean volume [Entitic volume] in Blood by Automated count 6.6-10.1 [facility] Platelet mean volume Auto (B ld) [Entitic vol]on 06-22-2024 Platelet mean volume (Bld) [Entitic vol] Platelet mean volume [Entitic volume] in Blood by Automated count 9.5-13.5 [facility] Platelets Auto (Bld) [#/Vol] Ordered By: Dorene Valenzuela on 06-22-2024 Platelets (Bld) [#/Vol] Platelets [#/vol ume] in Blood by Automated count Low 150-450 [facility] Platelets Auto (Bld) [#/Vol] on 06-22-2024 Platelets (Bld) [#/Vol] Platelets [#/vol ume] in Blood by Automated count Low 150-450 [facility] Potassium [Moles/volume] in Serum or PlasmaOrdered By: Dorene Valenzuela on 06-22-2024 Potassium [Moles/Vol] Potassium [Moles/v olume] in Serum or Plasma Low 3.5-5.1 [facility] Protein [Mass/volume] in Ser um or PlasmaOrdered By: Dorene Valenzuela on 06-22-2024 Protein [Mass/Vol] Protein [Mass/volume ] in Serum or Plasma Low 6.4-8.9 [facility] RBC Auto (Bld) [#/Vol]Ordere d By: Dorene Valenzuela on 06-22-2024 RBC (Bld) [#/Vol] Erythrocytes [#/volu me] in Blood by Automated count Low 3.90-5.60 [facility] RBC Auto (Bld) [#/Vol]on RBC (Bld) [#/Vol] Erythrocytes [#/volu me] in Blood by Automated count Low 4.70-6.10 [facility] Serum or plasma albumin/glob ulin mass ratioOrdered By: Dorene Valenzuela on 06-22-2024 Albumin/Globulin [Mass ratio] Serum or plasma albumin/globulin mass ratio [facility] Serum or plasma albumin/glob ulin mass ratioon 06-22-2024 Albumin/Globulin [Mass ratio] Serum or plasma albumin/globulin mass ratio [facility] Serum or plasma anion gap de terminationOrdered By: Dorene Valenzuela on 06-22-2024 Anion gap [Moles/Vol] Serum or plasma an ion gap determination 6.0-15.0 [facility] Serum or plasma anion gap de terminationon 06-22-2024 Anion gap [Moles/Vol] Serum or plasma an ion gap determination [facility] Sodium [Moles/volume] in Ser um or PlasmaOrdered By: Dorene Valenzuela on 06-22-2024 Sodium [Moles/Vol] Sodium [Moles/volume ] in Serum or Plasma Low 136-145 [facility] Urea nitrogen [Mass/volume] in Serum or PlasmaOrdered By: Dorene Valenzuela on 06-22-2024 Urea nitrogen [Mass/Vol] Urea nitrogen [Mass/volume] in Serum or Plasma High 7-25 [facility] WBC Auto (Bld) [#/Vol]Ordere d By: Dorene Valenzuela on 06-22-2024 WBC (Bld) [#/Vol] Leukocytes [#/volume ] in Blood by Automated count 4.1-10.5 [facility] Basophils Auto (Bld) [#/Vol] Ordered By: Kim Renteria on 03-10-2024 Basophils (Bld) [#/Vol] 0.1 10*3/uL 0.0-0.2 [facility] Basophils/100 WBC Auto (Bld) Ordered By: Kim Renteria on 03-10-2024 Basophils/100 WBC (Bld) 0.6 % . [facility] Calcium [Mass/volume] in Ser um or PlasmaOrdered By: Kim Renteria on 03-10-2024 Calcium [Mass/Vol] 8.7 mg/dL 8.6-10.3 [facility] Carbon dioxide, total [Moles /volume] in Serum or PlasmaOrdered By: Kim Renteria on 03-10-2024 CO2 [Moles/Vol] 28.2 mmol/L 21.0-31.0 [place] Chloride [Moles/volume] in S gretta or PlasmaOrdered By: Kim Renteria on 03-10-2024 Chloride [Moles/Vol] 94 mmol/L Low 98-107 [facility] Creatinine [Mass/volume] in Serum or PlasmaOrdered By: Kim Renteria on 03-10-2024 Creatinine [Mass/Vol] 4.66 mg/dL High 0.70-1.30 [facility] Comment on above: Delta: 6.87 on 03/0905 Eosinophils Auto (Bld) [#/Vo l]Ordered By: Kim Renteria on 03-10-2024 Eosinophils (Bld) [#/Vol] 0.1 10*3/uL 0.0-0.45 [facility] Eosinophils/100 WBC Auto (Bl d)Ordered By: Kim Renteria on 03-10-2024 Eosinophils/100 WBC (Bld) 0.9 % . [facility] Erythrocyte distribution wid th Auto (RBC) [Ratio]Ordered By: Kim Renteria on 03-10-2024 Erythrocyte distribution width (RBC) [Ratio] 15.4 % High 12.0-14.8 [facility] Glucose Glucometer (BldC) [M ass/Vol]Ordered By: Kim Renteria on 03-10-2024 Glucose [Mass/Vol] 277 mg/dL [facility] Comment on above: Random Glucose Refer ence Range is dependent on time and content of last meal. Glucose of more than 200 mg/dL in a nonstressed, ambulatory subject supports the diagnosis of Diabetes Mellitus. Glucose [Mass/volume] in Ser um or PlasmaOrdered By: Kim Renteria on 03-10-2024 Glucose [Mass/Vol] 120 mg/dL High 70-100 [facility] Comment on above: Delta: 973 on -1006ADA recommended reference rangeRandom Glucose Reference Range is dependent on time and content of last meal. Glucose of more than 200 mg/dL in a nonstressed, ambulatory subject supports the diagnosis of Diabetes Mellitus. Hematocrit Auto (Bld) [Volum e fraction]Ordered By: Kim Renteria on 03-10-2024 Hematocrit (Bld) [Volume fraction] 32.6 % Low 38.8-50.0 [facility] Hemoglobin [Mass/volume] in BloodOrdered By: Kim Renteria on 03-10-2024 Hemoglobin (Bld) [Mass/Vol] 11.2 g/dL Low 13.0-17.0 [facility] Leukocytes [#/volume] correc celena for nucleated erythrocytes in Blood by Automated counOrdered By: Kim Renteria on 03-10-2024 WBC corrected for nucl RBC Auto (Bld) [#/Vol] 15.4 10*3/uL High 4.1-10.5 [facility] Lymphocytes Auto (Bld) [#/Vo l]Ordered By: Kim Renteria on 03-10-2024 Lymphocytes (Bld) [#/Vol] 1.8 10*3/uL 1.00-4.8 [facility] Lymphocytes/100 WBC Auto (Bl d)Ordered By: Kim Renteria on 03-10-2024 Lymphocytes/100 WBC (Bld) 11.5 % . [facility] MCH Auto (RBC) [Entitic mass ]Ordered By: Kim Renteria on 03-10-2024 MCH (RBC) [Entitic mass] 30.7 pg 27.5-35.2 [facility] MCHC Auto (RBC) [Mass/Vol]Or dered By: Kim Renteria on 03-10-2024 MCHC (RBC) [Mass/Vol] 34.4 g/dL 32.5-35.6 [facility] MCV Auto (RBC) [Entitic vol] Ordered By: Kim Renteria on 03-10-2024 MCV (RBC) [Entitic vol] 89.2 fL 83.5-101 [facility] Monocytes Auto (Bld) [#/Vol] Ordered By: Kim Renteria on 03-10-2024 Monocytes (Bld) [#/Vol] 0.8 10*3/uL 0.0-0.8 [facility] Monocytes/100 WBC Auto (Bld) Ordered By: Kim Renteria on 03-10-2024 Monocytes/100 WBC (Bld) 5.2 % . [facility] Neutrophils Auto (Bld) [#/Vo l]Ordered By: Kim Renteria on 03-10-2024 Neutrophils (Bld) [#/Vol] 12.6 10*3/uL High 1.8-7.7 [facility] Neutrophils/100 WBC Auto (Bl d)Ordered By: Kim Renteria on 03-10-2024 Neutrophils/100 WBC (Bld) 81.8 % . [facility] No Panel InformationOrdered By: Kim Renteria on 03-10-2024 Bedside Glucose Comment Glu2: cleaned meter [facility] Estimated GFR (CKD-EPI) 15.487 mL/Min [facility] Creatinine Clearance (Chem 23.21 [facility] Nucleated erythrocytes [Pres ence] in Blood by Automated countOrdered By: Kim Renteria on 03-10-2024 Nucleated RBC Auto Ql (Bld) 0.0 /100{WBC} 0-0.5 [facility] Platelet mean volume Auto (B ld) [Entitic vol]Ordered By: Kim Renteria on 03-10-2024 Platelet mean volume (Bld) [Entitic vol] 8.7 fL 6.6-10.1 [facility] Platelets Auto (Bld) [#/Vol] Ordered By: Kim Renteria on 03-10-2024 Platelets (Bld) [#/Vol] 193 10*3/uL 150-450 [facility] Potassium [Moles/volume] in Serum or PlasmaOrdered By: Kim Renteria on 03-10-2024 Potassium [Moles/Vol] 4.1 mmol/L 3.5-5.1 [facility] Comment on above: Delta: 5.7 on -0555 RBC Auto (Bld) [#/Vol]Ordere d By: Kim Renteria on 03-10-2024 RBC (Bld) [#/Vol] 3.65 10*6/uL Low 3.90-5.60 [facility] Serum or plasma anion gap de terminationOrdered By: Kim Renteria on 03-10-2024 Anion gap [Moles/Vol] 13.9 mmol/L 6.0-15.0 [facility] Sodium [Moles/volume] in Ser um or PlasmaOrdered By: Kim Renteria on 03-10-2024 Sodium [Moles/Vol] 132 mmol/L Low 136-145 [facility] Comment on above: Delta: 116 on -0555 Urea nitrogen [Mass/volume] in Serum or PlasmaOrdered By: Kim Renteria on 03-10-2024 Urea nitrogen [Mass/Vol] 37 mg/dL High 7-25 [facility] Comment on above: Delta: 68 on 4-0555 WBC Auto (Bld) [#/Vol]Ordere d By: Kim Renteria on 03-10-2024 WBC (Bld) [#/Vol] 15.4 10*3/uL High 4.1-10.5 [facility] Alanine aminotransferase [En zymatic activity/volume] in Serum or PlasmaOrdered By: Romain Rios on 03-09-2024 ALT [Catalytic activity/Vol] 8 U/L 7-52 [facility] Albumin [Mass/volume] in Ser um or Plasma by Bromocresol green (BCG) dye binding methoOrdered By: Romain Rios on 03-09-2024 Albumin BCG dye [Mass/Vol] 4.0 g/dL 3.5-5.7 [facility] Alkaline phosphatase [Enzyma tic activity/volume] in Serum or PlasmaOrdered By: Romain Rios on 03-09-2024 ALP [Catalytic activity/Vol] 73 U/L 34-104 [facility] Aspartate aminotransferase [ Enzymatic activity/volume] in Serum or PlasmaOrdered By: Romain Rios on 03-09-2024 AST [Catalytic activity/Vol] 11 U/L Low 13-39 [facility] Bacteria [Presence] in Urine by AutomatedOrdered By: Hector Mann on 03-09-2024 Bacteria Auto Ql (U) Rare [HPF] None Seen [facility] Bacterial blood cultureOrder ed By: Hector Mann on 03-09-2024 Bacteria identified Cx Nom (Bld) NO GROWTH 5 DAYS [facility] Bacteria identified Cx Nom (Bld) NO GROWTH 5 DAYS [facility] Basophils Auto (Bld) [#/Vol] Ordered By: Romain Rios on 03-09-2024 Basophils (Bld) [#/Vol] 0.1 10*3/uL 0.0-0.2 [facility] Basophils/100 WBC Auto (Bld) Ordered By: Romain Rios on 03-09-2024 Basophils/100 WBC (Bld) 0.8 % . [facility] Beta hydroxybutyrate [Moles/ volume] in Serum or PlasmaOrdered By: Hector Mann on 03-09-2024 Beta hydroxybutyrate [Moles/Vol] 0.27 mmol/L 0.02-0.27 [facility] Bilirubin Test strip Ql (U)O rdered By: Hector Mann on 03-09-2024 Bilirubin Ql (U) Negative Negative [place] Bilirubin.total [Mass/volume ] in Serum or PlasmaOrdered By: Romain Rios on 03-09-2024 Bilirubin [Mass/Vol] 0.7 mg/dL 0.3-1.0 [facility] COVID CepheidOrdered By: Praful Rios on 03-09-2024 SARS-CoV-2 (COVID-19) Ab IA Ql Negative Negative [facility] Comment on above: This is a duplicate CepJourneyPure Xpert Xpress CoV-2/Flu/RSV Plus RNA by RT-PCR result to be used for statistical tracking purpose only. SARS-CoV-2 (COVID-19) RNA HAO+probe Ql (Unsp spec) [facility] Calcium [Mass/volume] in Ser um or PlasmaOrdered By: Romain Rios on 03-09-2024 Calcium [Mass/Vol] 8.9 mg/dL 8.6-10.3 [facility] Carbon dioxide, total [Moles /volume] in Serum or PlasmaOrdered By: Romain Rios on 03-09-2024 CO2 [Moles/Vol] 20.2 mmol/L Low 21.0-31.0 [place] Chloride [Moles/volume] in S gretta or PlasmaOrdered By: Romain Rios on 03-09-2024 Chloride [Moles/Vol] 81 mmol/L Low 98-107 [facility] Color Auto (U)Ordered By: Selma Mann on 03-09-2024 Color (U) Light-yellow Yellow [facility] Creatinine [Mass/volume] in Serum or PlasmaOrdered By: Romain Rios on 03-09-2024 Creatinine [Mass/Vol] 6.87 mg/dL High 0.70-1.30 [facility] Eosinophils Auto (Bld) [#/Vo l]Ordered By: Romain Rios on 03-09-2024 Eosinophils (Bld) [#/Vol] 0.0 10*3/uL 0.0-0.45 [facility] Eosinophils/100 WBC Auto (Bl d)Ordered By: Romain Rios on 03-09-2024 Eosinophils/100 WBC (Bld) 0.2 % . [facility] Epithelial cells.squamous [# /area] in Urine sediment by Automated countOrdered By: Hector Mann on 03-09-2024 Epithelial cells.squamous Auto (Urine sed) [#/Area] N/A [facility] Erythrocyte distribution wid th Auto (RBC) [Ratio]Ordered By: Romain Rios on 03-09-2024 Erythrocyte distribution width (RBC) [Ratio] 15.4 % High 12.0-14.8 [facility] Erythrocytes [#/area] in Uri ne sediment by Automated countOrdered By: Hector Mann on 03-09-2024 RBC Auto (Urine sed) [#/Area] 1-2 [HPF] 0-4 [facility] Globulin Calc (S) [Mass/Vol] Ordered By: Romain Rios on 03-09-2024 Globulin (S) [Mass/Vol] 3.2 g/dL [facility] Glucose Glucometer (BldC) [M ass/Vol]Ordered By: Kim Renteria on 03-09-2024 Glucose [Mass/Vol] 561 mg/dL High 70-105 [facility] Glucose [Mass/volume] in Ser um or PlasmaOrdered By: Romain Rios on 03-09-2024 Glucose [Mass/Vol] 1006 mg/dL High 70-100 [facility] Comment on above: ADA recommended refe rence rangeRandom Glucose Reference Range is dependent on time and content of last meal. Glucose of more than 200 mg/dL in a nonstressed, ambulatory subject supports the diagnosis of Diabetes Mellitus. Glucose [Mass/volume] in Uri ne by Test stripOrdered By: Hector Mann on 03-09-2024 Glucose Test strip (U) [Mass/Vol] >=1000 mg/dL High Normal [facility] Hematocrit Auto (Bld) [Volum e fraction]Ordered By: Romain Rios on 03-09-2024 Hematocrit (Bld) [Volume fraction] 33.6 % Low 38.8-50.0 [facility] Hemoglobin Test strip Ql (U) Ordered By: Hector Mann on 03-09-2024 Hemoglobin Ql (U) 1+ High Negative [facility] Hemoglobin [Mass/volume] in BloodOrdered By: Romain Rios on 03-09-2024 Hemoglobin (Bld) [Mass/Vol] 10.9 g/dL Low 13.0-17.0 [facility] Hyaline casts [#/area] in Ur ine sediment by Automated countOrdered By: Hector Mann on 03-09-2024 Hyaline casts Auto (Urine sed) [#/Area] None [LPF] 0-8 [facility] Ketones Test strip Ql (U)Ord ered By: Hector Mann on 03-09-2024 Ketones Ql (U) Negative Negative [facility] Laboratory - Chemistry and C hemistry - challengeOrdered By: Romain Rios on 03-09-2024 CO2 [Moles/Vol] 21.5 mmol/L Low 23.0-27.0 [place] HCO3 (Bld) [Moles/Vol] 20.3 mmol/L Low 23.0-29.0 [facility] Lactate [Moles/volume] in Se rum or PlasmaOrdered By: Hector Mann on 03-09-2024 Lactate [Moles/Vol] 0.8 mmol/L 0.5-2.2 [facility] Leukocyte esterase [Presence ] in Urine by Test stripOrdered By: Hector Mann on 03-09-2024 Leukocyte esterase Test strip Ql (U) Negative Negative [facility] Leukocytes [#/area] in Urine sediment by Automated countOrdered By: Hector Mann on 03-09-2024 WBC Auto (Urine sed) [#/Area] 5-9 [HPF] High 0-4 [facility] Leukocytes [#/volume] correc celena for nucleated erythrocytes in Blood by Automated counOrdered By: Romain Rios on 03-09-2024 WBC corrected for nucl RBC Auto (Bld) [#/Vol] 12.4 10*3/uL High 4.1-10.5 [facility] Lymphocytes Auto (Bld) [#/Vo l]Ordered By: Romain Rios on 03-09-2024 Lymphocytes (Bld) [#/Vol] 0.5 10*3/uL Low 1.00-4.8 [facility] Lymphocytes/100 WBC Auto (Bl d)Ordered By: Romain Rios on 03-09-2024 Lymphocytes/100 WBC (Bld) 3.8 % . [facility] MCH Auto (RBC) [Entitic mass ]Ordered By: Romain Rios on 03-09-2024 MCH (RBC) [Entitic mass] 30.6 pg 27.5-35.2 [facility] MCHC Auto (RBC) [Mass/Vol]Or dered By: Romain Rios on 03-09-2024 MCHC (RBC) [Mass/Vol] 32.6 g/dL 32.5-35.6 [facility] MCV Auto (RBC) [Entitic vol] Ordered By: Romain Rios on 03-09-2024 MCV (RBC) [Entitic vol] 93.9 fL 83.5-101 [facility] Monocyte distribution width [Entitic volume] in Blood by AutomatedOrdered By: Romain Rios on 03-09-2024 Monocyte distribution width Auto (Bld) [Entitic vol] 15.01 % 0.00-20.00 [facility] Monocytes Auto (Bld) [#/Vol] Ordered By: Romain Rios on 03-09-2024 Monocytes (Bld) [#/Vol] 0.5 10*3/uL 0.0-0.8 [facility] Monocytes/100 WBC Auto (Bld) Ordered By: Romain Rios on 03-09-2024 Monocytes/100 WBC (Bld) 4.4 % . [facility] Natriuretic peptide B [Mass/ Vol]Ordered By: Romain Rios on 03-09-2024 Natriuretic peptide B (Bld) [Mass/Vol] 4104.0 pg/mL High 5-100 [facility] Neutrophils Auto (Bld) [#/Vo l]Ordered By: Romain Rios on 03-09-2024 Neutrophils (Bld) [#/Vol] 11.2 10*3/uL High 1.8-7.7 [facility] Neutrophils/100 WBC Auto (Bl d)Ordered By: Romain Rios on 03-09-2024 Neutrophils/100 WBC (Bld) 90.8 % . [facility] Nitrite Test strip Ql (U)Ord ered By: Hector Mann on 03-09-2024 Nitrite Ql (U) Negative Negative [facility] No Panel InformationOrdered By: Kim Renteria on 03-09-2024 Bedside Glucose #2 Comment Insulin drip francio [facility] Bedside Glucose Comment See comment [facility] Comment on above: Glu2: WILL NOTIFY DR /RN No Panel InformationOrdered By: Romain Rios on 03-09-2024 Arterial Blood Base Excess -4.7 mmol/L Low -3.0-3.0 [facility] Arterial Blood Oxygen Content 5.8 mmol/L Low 6.6-9.7 [facility] Arterial Blood Oxygen Saturation 80.2 % Low 95.0-100.0 [facility] Arterial Blood Partial Pressure CO2 37.7 mm[Hg] 35.0-45.0 [facility] Arterial Blood Partial Pressure O2 46.9 mm[Hg] Low 80.0-100.0 [facility] Arterial Blood pH 7.35 7.35-7.45 [facility] Blood Gas Critical Value See comment [facility] Comment on above: Critical Value lion d on: 03/09/2024 at 08:02 Blood Gas Sample Site Right radial F [facility] FiO2 21 % [facility] Estimated GFR (CKD-EPI) 9.721 mL/Min [facility] Creatinine Clearance (Chem 14.50 [facility] Nucleated erythrocytes [Pres ence] in Blood by Automated countOrdered By: Romain Rios on 03-09-2024 Nucleated RBC Auto Ql (Bld) 0.0 /100{WBC} 0-0.5 [facility] Platelet mean volume Auto (B ld) [Entitic vol]Ordered By: Romain Rios on 03-09-2024 Platelet mean volume (Bld) [Entitic vol] 9.2 fL 6.6-10.1 [facility] Platelets Auto (Bld) [#/Vol] Ordered By: Romain Rios on 03-09-2024 Platelets (Bld) [#/Vol] 184 10*3/uL 150-450 [facility] Potassium [Moles/volume] in Serum or PlasmaOrdered By: Romain Rios on 03-09-2024 Potassium [Moles/Vol] 5.7 mmol/L High 3.5-5.1 [facility] Protein Test strip (U) [Mass /Vol]Ordered By: Hector Mann on 03-09-2024 Protein (U) [Mass/Vol] 300 mg/dL High Negative [facility] Protein [Mass/volume] in Ser um or PlasmaOrdered By: Romain Rios on 03-09-2024 Protein [Mass/Vol] 7.2 g/dL 6.4-8.9 [facility] RBC Auto (Bld) [#/Vol]Ordere d By: Romain Rios on 03-09-2024 RBC (Bld) [#/Vol] 3.58 10*6/uL Low 3.90-5.60 [facility] Serum or plasma albumin/glob ulin mass ratioOrdered By: Romain Rios on 03-09-2024 Albumin/Globulin [Mass ratio] 1.3 {ratio} [facility] Serum or plasma anion gap de terminationOrdered By: Romain Rios on 03-09-2024 Anion gap [Moles/Vol] 20.5 mmol/L High 6.0-15.0 [facility] Sodium [Moles/volume] in Ser um or PlasmaOrdered By: Romain Rios on 03-09-2024 Sodium [Moles/Vol] 116 mmol/L Low 136-145 [facility] Comment on above: Critical Result Call ed to and read back by: NIKI DEY at: 03/09/2024 07:11:44 by:MLG Specific gravity Test strip (U) [Rel density]Ordered By: Hector Mann on 03-09-2024 Specific gravity (U) [Rel density] 1.013 1.001-1.030 [facility] Urea nitrogen [Mass/volume] in Serum or PlasmaOrdered By: Romain Rios on 03-09-2024 Urea nitrogen [Mass/Vol] 68 mg/dL High 7-25 [facility] Urine appearanceOrdered By: Hector Mann on 03-09-2024 Appearance (U) Clear Clear [facility] Urobilinogen Test strip (U) [Mass/Vol]Ordered By: Hector Mann on 03-09-2024 Urobilinogen (U) [Mass/Vol] Normal mg/dL Normal [facility] WBC Auto (Bld) [#/Vol]Ordere d By: Romain Rios on 03-09-2024 WBC (Bld) [#/Vol] 12.4 10*3/uL High 4.1-10.5 [facility] pH Test strip (U)Ordered By: Hector Mann on 03-09-2024 pH (U) 6.5 [pH] 5.0-9.0 [facility] Basophils Auto (Bld) [#/Vol] Ordered By: Isidoro Mesa on 03-02-2024 Basophils (Bld) [#/Vol] 0.0 10*3/uL 0.0-0.2 [facility] Basophils/100 WBC Auto (Bld) Ordered By: Isidoro Mesa on 03-02-2024 Basophils/100 WBC (Bld) 0.4 % . [facility] Calcium [Mass/volume] in Ser um or PlasmaOrdered By: Isidoro Mesa on 03-02-2024 Calcium [Mass/Vol] 8.2 mg/dL Low 8.6-10.3 [facility] Carbon dioxide, total [Moles /volume] in Serum or PlasmaOrdered By: Isidoro Mesa on 03-02-2024 CO2 [Moles/Vol] 20.3 mmol/L Low 21.0-31.0 [place] Chloride [Moles/volume] in S gretta or PlasmaOrdered By: Isidoro Mesa on 03-02-2024 Chloride [Moles/Vol] 95 mmol/L Low 98-107 [facility] Creatinine [Mass/volume] in Serum or PlasmaOrdered By: Isidoro Mesa on 03-02-2024 Creatinine [Mass/Vol] 8.67 mg/dL High 0.70-1.30 [facility] Comment on above: Delta: 7.89 on 03/01-1119 Eosinophils Auto (Bld) [#/Vo l]Ordered By: Isidoro Mesa on 03-02-2024 Eosinophils (Bld) [#/Vol] 0.0 10*3/uL 0.0-0.45 [facility] Eosinophils/100 WBC Auto (Bl d)Ordered By: Isidoro Mesa on 03-02-2024 Eosinophils/100 WBC (Bld) 0.0 % . [facility] Erythrocyte distribution wid th Auto (RBC) [Ratio]Ordered By: Isidoro Mesa on 03-02-2024 Erythrocyte distribution width (RBC) [Ratio] 14.8 % 12.0-14.8 [facility] Glucose Glucometer (BldC) [M ass/Vol]Ordered By: Julio Allen on 03-02-2024 Glucose [Mass/Vol] 225 mg/dL [facility] Comment on above: Random Glucose Refer ence Range is dependent on time and content of last meal. Glucose of more than 200 mg/dL in a nonstressed, ambulatory subject supports the diagnosis of Diabetes Mellitus. Glucose [Mass/volume] in Ser um or PlasmaOrdered By: Isidoro Mesa on 03-02-2024 Glucose [Mass/Vol] 379 mg/dL High 70-100 [facility] Comment on above: Delta: 547 on -[id number] recommended reference rangeRandom Glucose Reference Range is dependent on time and content of last meal. Glucose of more than 200 mg/dL in a nonstressed, ambulatory subject supports the diagnosis of Diabetes Mellitus. Hematocrit Auto (Bld) [Volum e fraction]Ordered By: Isidoro Mesa on 03-02-2024 Hematocrit (Bld) [Volume fraction] 26.9 % Low 38.8-50.0 [facility] Hemoglobin [Mass/volume] in BloodOrdered By: Isidoro Mesa on 03-02-2024 Hemoglobin (Bld) [Mass/Vol] 9.2 g/dL Low 13.0-17.0 [facility] Leukocytes [#/volume] correc celena for nucleated erythrocytes in Blood by Automated counOrdered By: Isidoro Mesa on 03-02-2024 WBC corrected for nucl RBC Auto (Bld) [#/Vol] 9.4 10*3/uL 4.1-10.5 [facility] Lymphocytes Auto (Bld) [#/Vo l]Ordered By: Isidoro Mesa on 03-02-2024 Lymphocytes (Bld) [#/Vol] 0.7 10*3/uL Low 1.00-4.8 [facility] Lymphocytes/100 WBC Auto (Bl d)Ordered By: Isidoro Mesa on 03-02-2024 Lymphocytes/100 WBC (Bld) 7.7 % . [facility] MCH Auto (RBC) [Entitic mass ]Ordered By: Isidoro Mesa on 03-02-2024 MCH (RBC) [Entitic mass] 31.1 pg 27.5-35.2 [facility] MCHC Auto (RBC) [Mass/Vol]Or dered By: Isidoro Mesa on 03-02-2024 MCHC (RBC) [Mass/Vol] 34.4 g/dL 32.5-35.6 [facility] MCV Auto (RBC) [Entitic vol] Ordered By: Isidoro Mesa on 03-02-2024 MCV (RBC) [Entitic vol] 90.6 fL 83.5-101 [facility] Magnesium [Mass/volume] in S gretta or PlasmaOrdered By: Isidoro Mesa on 03-02-2024 Magnesium [Mass/Vol] 2.1 mg/dL 1.9-2.7 [facility] Monocytes Auto (Bld) [#/Vol] Ordered By: Isidoro Mesa on 03-02-2024 Monocytes (Bld) [#/Vol] 0.5 10*3/uL 0.0-0.8 [facility] Monocytes/100 WBC Auto (Bld) Ordered By: Isidoro Mesa on 03-02-2024 Monocytes/100 WBC (Bld) 5.1 % . [facility] Neutrophils Auto (Bld) [#/Vo l]Ordered By: Isidoro Mesa on 03-02-2024 Neutrophils (Bld) [#/Vol] 8.2 10*3/uL High 1.8-7.7 [facility] Neutrophils/100 WBC Auto (Bl d)Ordered By: Isidoro Mesa on 03-02-2024 Neutrophils/100 WBC (Bld) 86.8 % . [facility] No Panel InformationOrdered By: Chung Maria on 03-02-2024 Bedside Glucose Comment See comment [facility] Comment on above: Glu2: Will Repeat Te st No Panel InformationOrdered By: Isidoro Mesa on 03-02-2024 Estimated GFR (CKD-EPI) 7.398 mL/Min [facility] Creatinine Clearance (Chem 13.06 [facility] Nucleated erythrocytes [Pres ence] in Blood by Automated countOrdered By: Isidoro Mesa on 03-02-2024 Nucleated RBC Auto Ql (Bld) 0.1 /100{WBC} 0-0.5 [facility] Platelet mean volume Auto (B ld) [Entitic vol]Ordered By: Isidoro Mesa on 03-02-2024 Platelet mean volume (Bld) [Entitic vol] 9.5 fL 6.6-10.1 [facility] Platelets Auto (Bld) [#/Vol] Ordered By: Isidoro Mesa on 03-02-2024 Platelets (Bld) [#/Vol] 121 10*3/uL Low 150-450 [facility] Potassium [Moles/volume] in Serum or PlasmaOrdered By: Isidoro Mesa on 03-02-2024 Potassium [Moles/Vol] 5.9 mmol/L High 3.5-5.1 [facility] RBC Auto (Bld) [#/Vol]Ordere d By: Isidoro Mesa on 03-02-2024 RBC (Bld) [#/Vol] 2.97 10*6/uL Low 3.90-5.60 [facility] Serum or plasma anion gap de terminationOrdered By: Isidoro Mesa on 03-02-2024 Anion gap [Moles/Vol] 19.6 mmol/L High 6.0-15.0 [facility] Sodium [Moles/volume] in Ser um or PlasmaOrdered By: Isidoro Mesa on 03-02-2024 Sodium [Moles/Vol] 129 mmol/L Low 136-145 [facility] Urea nitrogen [Mass/volume] in Serum or PlasmaOrdered By: Isidoro Mesa on 03-02-2024 Urea nitrogen [Mass/Vol] 94 mg/dL High 7-25 [facility] WBC Auto (Bld) [#/Vol]Ordere d By: Isidoro Mesa on 03-02-2024 WBC (Bld) [#/Vol] 9.4 10*3/uL 4.1-10.5 [facility] Activated partial thrombopla stin time (aPTT) in platelet poor plasma by coagulation aOrdered By: Robyn Jose on 03-01-2024 aPTT Coag (PPP) [Time] 35.7 s 25.1-36.5 [facility] Comment on above: A hematocrit value g reater than 55% may lead to inaccurate results in coagulation testing. Patients having hematocrit values >55% require a special collection tube for coagulation studies. Please contact the laboratory at [phone] for redraw instructions. Bacterial blood cultureOrder ed By: Robyn Jose on 03-01-2024 Bacteria identified Cx Nom (Bld) NO GROWTH 5 DAYS [facility] Bacteria identified Cx Nom (Bld) NO GROWTH 5 DAYS [facility] Basophils Auto (Bld) [#/Vol] Ordered By: Robyn Jose on 03-01-2024 Basophils (Bld) [#/Vol] 0.1 10*3/uL 0.0-0.2 [facility] Basophils/100 WBC Auto (Bld) Ordered By: Robyn Jose on 03-01-2024 Basophils/100 WBC (Bld) 0.8 % . [facility] Beta hydroxybutyrate [Moles/ volume] in Serum or PlasmaOrdered By: Vibha Nicolas on 03-01-2024 Beta hydroxybutyrate [Moles/Vol] 0.14 mmol/L 0.02-0.27 [facility] COVID CepheidOrdered By: Marcia Jose on 03-01-2024 SARS-CoV-2 (COVID-19) Ab IA Ql Negative Negative [facility] Comment on above: This is a duplicate [employer] Xpert Xpress CoV-2/Flu/RSV Plus RNA by RT-PCR result to be used for statistical tracking purpose only. SARS-CoV-2 (COVID-19) RNA HAO+probe Ql (Unsp spec) [facility] COVID-19 Detected/Not Detect edOrdered By: Isidoro Mesa on 03-01-2024 SARS-CoV-2 (COVID-19) RNA HAO+non-probe Ql (Nph) Not detected Not Detecte [facility] Comment on above: This is a duplicate RP2.1 COVID (PCR) result to be used for statistical tracking purpose only. Calcium [Mass/volume] in Ser um or PlasmaOrdered By: Robyn Jose on 03-01-2024 Calcium [Mass/Vol] 8.9 mg/dL 8.6-10.3 [facility] Carbon dioxide, total [Moles /volume] in Serum or PlasmaOrdered By: Robyn Jose on 03-01-2024 CO2 [Moles/Vol] 22.6 mmol/L 21.0-31.0 [place] Chloride [Moles/volume] in S gretta or PlasmaOrdered By: Robyn Jose on 03-01-2024 Chloride [Moles/Vol] 94 mmol/L Low 98-107 [facility] Creatine kinase [Enzymatic a ctivity/volume] in Serum or PlasmaOrdered By: Robyn Jose on 03-01-2024 CK [Catalytic activity/Vol] 181 U/L 30-223 [facility] Creatinine [Mass/volume] in Serum or PlasmaOrdered By: Robyn Jose on 03-01-2024 Creatinine [Mass/Vol] 7.50 mg/dL High 0.70-1.30 [facility] Eosinophils Auto (Bld) [#/Vo l]Ordered By: Robyn Jose on 03-01-2024 Eosinophils (Bld) [#/Vol] 0.0 10*3/uL 0.0-0.45 [facility] Eosinophils/100 WBC Auto (Bl d)Ordered By: Robyn Jose on 03-01-2024 Eosinophils/100 WBC (Bld) 0.2 % . [facility] Erythrocyte distribution wid th Auto (RBC) [Ratio]Ordered By: Robyn Jose on 03-01-2024 Erythrocyte distribution width (RBC) [Ratio] 14.9 % High 12.0-14.8 [facility] Glucose [Mass/volume] in Ser um or PlasmaOrdered By: Robyn Jose on 03-01-2024 Glucose [Mass/Vol] 477 mg/dL High 70-100 [facility] Comment on above: ADA recommended refe rence rangeRandom Glucose Reference Range is dependent on time and content of last meal. Glucose of more than 200 mg/dL in a nonstressed, ambulatory subject supports the diagnosis of Diabetes Mellitus. Glucose mean value [Mass/vol ume] in Blood Estimated from glycated hemoglobinOrdered By: Isidoro Mesa on 03-01-2024 Average glucose Estimated from glycated hemoglobin (Bld) [Mass/Vol] 217 mg/dL [facility] Hematocrit Auto (Bld) [Volum e fraction]Ordered By: Robyn Jose on 03-01-2024 Hematocrit (Bld) [Volume fraction] 29.5 % Low 38.8-50.0 [facility] Hemoglobin A1c percentageOrd ered By: Isidoro Mesa on 03-01-2024 HbA1c (Bld) [Mass fraction] 9.2 % High 4.3-5.6 [facility] Comment on above: Increased risk for d iabetes: 5.7 - 6.4diabetes: >6.4glycemic control for adults with diabetes: <7.0 Hemoglobin [Mass/volume] in BloodOrdered By: Robyn Jose on 03-01-2024 Hemoglobin (Bld) [Mass/Vol] 10.0 g/dL Low 13.0-17.0 [facility] INR in Platelet poor plasma by Coagulation assayOrdered By: Robyn Jose on 03-01-2024 INR Coag (PPP) [Relative time] 1.1 {INR} [facility] Comment on above: INR Therapeutic Rang [...] with mechanical heart valves: 3 - 4.5 Lactate [Moles/volume] in Se rum or PlasmaOrdered By: Robyn Jsoe on 03-01-2024 Lactate [Moles/Vol] 0.6 mmol/L 0.5-2.2 [facility] Leukocytes [#/volume] correc celena for nucleated erythrocytes in Blood by Automated counOrdered By: Robyn Jose on 03-01-2024 WBC corrected for nucl RBC Auto (Bld) [#/Vol] 10.2 10*3/uL 4.1-10.5 [facility] Lymphocytes Auto (Bld) [#/Vo l]Ordered By: Robyn Jose on 03-01-2024 Lymphocytes (Bld) [#/Vol] 0.8 10*3/uL Low 1.00-4.8 [facility] Lymphocytes/100 WBC Auto (Bl d)Ordered By: Robyn Jose on 03-01-2024 Lymphocytes/100 WBC (Bld) 8.0 % . [facility] MCH Auto (RBC) [Entitic mass ]Ordered By: Robyn Jose on 03-01-2024 MCH (RBC) [Entitic mass] 30.7 pg 27.5-35.2 [facility] MCHC Auto (RBC) [Mass/Vol]Or dered By: Robyn Jose on 03-01-2024 MCHC (RBC) [Mass/Vol] 33.9 g/dL 32.5-35.6 [facility] MCV Auto (RBC) [Entitic vol] Ordered By: Robyn Jose on 03-01-2024 MCV (RBC) [Entitic vol] 90.7 fL 83.5-101 [facility] Monocyte distribution width [Entitic volume] in Blood by AutomatedOrdered By: Robyn Jose on 03-01-2024 Monocyte distribution width Auto (Bld) [Entitic vol] 14.33 % 0.00-20.00 [facility] Monocytes Auto (Bld) [#/Vol] Ordered By: Robyn Jose on 03-01-2024 Monocytes (Bld) [#/Vol] 0.5 10*3/uL 0.0-0.8 [facility] Monocytes/100 WBC Auto (Bld) Ordered By: Robyn Jose on 03-01-2024 Monocytes/100 WBC (Bld) 5.4 % . [facility] Natriuretic peptide B [Mass/ Vol]Ordered By: Robyn Jose on 03-01-2024 Natriuretic peptide B (Bld) [Mass/Vol] 2530.0 pg/mL High 5-100 [facility] Neutrophils Auto (Bld) [#/Vo l]Ordered By: Robyn Jose on 03-01-2024 Neutrophils (Bld) [#/Vol] 8.8 10*3/uL High 1.8-7.7 [facility] Neutrophils/100 WBC Auto (Bl d)Ordered By: Robyn Jose on 03-01-2024 Neutrophils/100 WBC (Bld) 85.6 % . [facility] No Panel InformationOrdered By: Chung Maria on 03-01-2024 Bedside Glucose #2 Comment Will repeat test [facility] No Panel InformationOrdered By: Robyn Jose on 03-01-2024 Estimated GFR (CKD-EPI) 8.804 mL/Min [facility] Creatinine Clearance (Chem 13.51 [facility] Nucleated erythrocytes [Pres ence] in Blood by Automated countOrdered By: Robyn Jose on 03-01-2024 Nucleated RBC Auto Ql (Bld) 0.0 /100{WBC} 0-0.5 [facility] Platelet mean volume Auto (B ld) [Entitic vol]Ordered By: Robyn Jose on 03-01-2024 Platelet mean volume (Bld) [Entitic vol] 8.9 fL 6.6-10.1 [facility] Platelets Auto (Bld) [#/Vol] Ordered By: Robyn Jose on 03-01-2024 Platelets (Bld) [#/Vol] 141 10*3/uL Low 150-450 [facility] Potassium [Moles/volume] in Serum or PlasmaOrdered By: Robyn Jose on 03-01-2024 Potassium [Moles/Vol] 5.0 mmol/L 3.5-5.1 [facility] Prothrombin time (PT)Ordered By: Robyn Jose on 03-01-2024 PT Coag (PPP) [Time] 13.1 s High 9.0-12.9 [facility] Comment on above: A hematocrit value g reater than 55% may lead to inaccurate results in coagulation testing. Patients having hematocrit values >55% require a special collection tube for coagulation studies. Please contact the laboratory at [phone] for redraw instructions. RBC Auto (Bld) [#/Vol]Ordere d By: Robyn Jose on 03-01-2024 RBC (Bld) [#/Vol] 3.25 10*6/uL Low 3.90-5.60 [facility] Respiratory pathogens DNA an d RNA panel - Nasopharynx by HAO with non-probe detectionOrdered By: Isidoro Mesa on 03-01-2024 Respiratory pathogens DNA and RNA panel HAO+non-probe (Nph) [facility] Serum or plasma anion gap de terminationOrdered By: Robyn Jose on 03-01-2024 Anion gap [Moles/Vol] 15.4 mmol/L High 6.0-15.0 [facility] Sodium [Moles/volume] in Ser um or PlasmaOrdered By: Robyn Jose on 03-01-2024 Sodium [Moles/Vol] 127 mmol/L Low 136-145 [facility] Troponin I.cardiac [Mass/vol ume] in Serum or Plasma by Detection limit <= 0.01 ng/Ordered By: Robyn Jose on 03-01-2024 Troponin I.cardiac DL <= 0.01 ng/mL [Mass/Vol] 36.3 pg/mL High 0.0-20.0 [facility] Urea nitrogen [Mass/volume] in Serum or PlasmaOrdered By: Robyn Jose on 03-01-2024 Urea nitrogen [Mass/Vol] 69 mg/dL High 7-25 [facility] WBC Auto (Bld) [#/Vol]Ordere d By: Robyn Jose on 03-01-2024 WBC (Bld) [#/Vol] 10.2 10*3/uL 4.1-10.5 [facility] Basophils Auto (Bld) [#/Vol] on 02-29-2024 Basophils (Bld) [#/Vol] 0.1 10 3/uL 0.0-0.1 [facility] Basophils/100 WBC Auto (Bld) on 02-29-2024 Basophils/100 WBC (Bld) 1.2 % 0.2-2.0 [facility] Eosinophils/100 WBC Auto (Bl d)on 02-29-2024 Eosinophils/100 WBC (Bld) 3.4 % 0.9-7.0 [facility] Erythrocyte distribution wid th Auto (RBC) [Ratio]on 02-29-2024 Erythrocyte distribution width (RBC) [Ratio] 14.5 % 11.0-15.0 [facility] Estimated glomerular filtrat ion rate (GFR) non- Americanon 02-29-2024 GFR/1.73 sq M.predicted among non-blacks MDRD (S/P/Bld) [Vol rate/Area] 10 mL/min/{1.73_m2} Low >=60 [facility] Hematocrit Auto (Bld) [Volum e fraction]on 02-29-2024 Hematocrit (Bld) [Volume fraction] 29.1 % Low 42.0-54.0 [facility] Hemoglobin [Mass/volume] in Bloodon 02-29-2024 Hemoglobin (Bld) [Mass/Vol] 9.5 g/dL Low 14.0-18.0 [facility] - Chemistry and C hemistry - challengeon 02-29-2024 Calcium [Mass/Vol] 8.2 mg/dL Low 8.5-10.1 [facility] Chloride [Moles/Vol] 95 mmol/L Low 98-107 [facility] CO2 [Moles/Vol] 27.9 mmol/L 21.0-32.0 [place] Creatinine [Mass/Vol] 6.13 mg/dL High 0.70-1.30 [facility] Comment on above: RESULTS CALLED TO Leonardo Barber (RN)@BY Tamara Russell, MLTat 0043 GFR/1.73 sq M.predicted MDRD (S/P/Bld) [Vol rate/Area] 13 mL/min/{1.73_m2} Low >=60 [facility] Glucose [Mass/Vol] 346 mg/dL High 74-106 [facility] Potassium [Moles/Vol] 4.3 mmol/L 3.5-5.1 [facility] Sodium [Moles/Vol] 131 mmol/L Low 136-145 [facility] Urea nitrogen [Mass/Vol] 43.0 mg/dL High 7.0-18.0 [facility] Urea nitrogen/Creatinine [Mass ratio] 7.0 mg/mg [facility] - Hematology and Cell countson 02-29-2024 Immature granulocytes/100 WBC (Bld) 0.2 % 0.0-0.5 [facility] Leukocytes [#/volume] correc celena for nucleated erythrocytes in Blood by Automated counon 02-29-2024 WBC corrected for nucl RBC Auto (Bld) [#/Vol] 5.6 10 3/uL 4.0-11.0 [facility] Lymphocytes Auto (Bld) [#/Vo l]on 02-29-2024 Lymphocytes (Bld) [#/Vol] 1.1 10 3/uL Low 1.2-3.8 [facility] Lymphocytes/100 WBC Auto (Bl d)on 02-29-2024 Lymphocytes/100 WBC (Bld) 19.7 % Low 20.5-60.0 [facility] MCH Auto (RBC) [Entitic mass ]on 02-29-2024 MCH (RBC) [Entitic mass] 30.4 pg 25.9-34.0 [facility] MCHC Auto (RBC) [Mass/Vol]on 02-29-2024 MCHC (RBC) [Mass/Vol] 32.6 g/dL 29.9-35.2 [facility] MCV Auto (RBC) [Entitic vol] on 02-29-2024 MCV (RBC) [Entitic vol] 93.3 fL 80.0-94.0 [facility] Monocytes Auto (Bld) [#/Vol] on 02-29-2024 Monocytes (Bld) [#/Vol] 0.3 10 3/uL 0.3-0.8 [facility] Monocytes/100 WBC Auto (Bld) on 02-29-2024 Monocytes/100 WBC (Bld) 6.0 % 1.7-12.0 [facility] Neutrophils Auto (Bld) [#/Vo l]on 02-29-2024 Neutrophils (Bld) [#/Vol] 3.9 10 3/uL 1.4-6.5 [facility] Neutrophils/100 WBC Auto (Bl d)on 02-29-2024 Neutrophils/100 WBC (Bld) 69.5 % 43.0-75.0 [facility] No Panel Informationon 02-28 Eosinophils # (Auto) 0.2 10 3/uL 0.0-0.7 [facility] Immature Granulocyte # (Auto) 0.01 10 3/uL 0.00-0.03 [facility] Platelet mean volume Auto (B ld) [Entitic vol]on 02-29-2024 Platelet mean volume (Bld) [Entitic vol] 10.3 fL 9.5-13.5 [facility] Platelets Auto (Bld) [#/Vol] on 02-29-2024 Platelets (Bld) [#/Vol] 116 10 3/uL Low 150-450 [facility] RBC Auto (Bld) [#/Vol]on RBC (Bld) [#/Vol] 3.12 10 6/uL Low 4.70-6.10 [facility] Serum or plasma anion gap de terminationon 02-29-2024 Anion gap [Moles/Vol] 12.4 mmol/L Fi [facility] Hemoglobin [Mass/volume] in Bloodon 01-13-2024 Hemoglobin (Bld) [Mass/Vol] 11.1 g/dL Low 14.0-18.0 [facility] Bacteria identifiedon 2023 Bacteria identified Cx Nom (Body fld) Test: Sterile Fluid Culture/Smear Specimen Source: Vitreous Specimen Type: Fluid Specimen Date: 12/16/2023 1800 Result Date: 12/21/2023 1343 Result Status: Final result Resulting Lab: [facility] [id number] [place] [address] CULTURE No growth aerobically and anaerobically STAIN No polymorphonuclear leukocytes seen No organisms seen Normal [facility] Comment on above: Performed By: #### 6 11-4 #### VIVEK Almaraz ([id number]) [facility] ([facility]) [address] [place] [address] Patient Correspondenceon Patient Correspondence [email or web address] [id number] F Normal [facility] Amphetamine Screen Ql (U)Ord ered By: Yordy Garg on 11-26-2023 Amphetamines Ql (U) Negative Negative [facility] Barbiturates [Presence] in U rine by Screen methodOrdered By: Yordy Garg on 11-26-2023 Barbiturates Screen Ql (U) Negative Negative [facility] Benzodiazepines Screen Ql (U )Ordered By: Yordy Garg on 11-26-2023 Benzodiazepines Ql (U) Negative Negative [facility] Benzoylecgonine [Presence] i n Urine by Screen methodOrdered By: Yordy Garg on 11-26-2023 Benzoylecgonine Screen Ql (U) Negative Negative [facility] Calcium [Mass/volume] in Ser um or PlasmaOrdered By: Yordy Garg on 11-26-2023 Calcium [Mass/Vol] 8.8 mg/dL 8.6-10.3 [facility] Cannabinoids [Presence] in U rine by Screen methodOrdered By: Yordy Garg on 11-26-2023 Cannabinoids Screen Ql (U) Negative Negative [facility] Comment on above: These are unconfirme d results and should not be used for legal purposes. Drug Cut-Off Concentration: AMPH 1000 ng/mL BYRON 200 ng/mL STEPHANIE 200 ng/mL COCM 300 ng/mL OP 300 ng/mL PCP 25 ng/mL THC 20 ng/mL Carbon dioxide, total [Moles /volume] in Serum or PlasmaOrdered By: Yordy Garg on 11-26-2023 CO2 [Moles/Vol] 25.0 mmol/L 21.0-31.0 [place] Chloride [Moles/volume] in S gretta or PlasmaOrdered By: Yordy Garg on 11-26-2023 Chloride [Moles/Vol] 93 mmol/L 98-107 [facility] Creatinine [Mass/volume] in Serum or PlasmaOrdered By: Yordy Garg on 11-26-2023 Creatinine [Mass/Vol] 6.56 mg/dL 0.70-1.30 [facility] Glucose Glucometer (BldC) [M ass/Vol]Ordered By: Romain Mendoza on 11-26-2023 Glucose [Mass/Vol] 235 mg/dL [facility] Comment on above: Random Glucose Refer ence Range is dependent on time and content of last meal. Glucose of more than 200 mg/dL in a nonstressed, ambulatory subject supports the diagnosis of Diabetes Mellitus. Glucose [Mass/volume] in Ser um or PlasmaOrdered By: Yordy Garg on 11-26-2023 Glucose [Mass/Vol] 339 mg/dL 70-100 [facility] Comment on above: ADA recommended refe rence rangeRandom Glucose Reference Range is dependent on time and content of last meal. Glucose of more than 200 mg/dL in a nonstressed, ambulatory subject supports the diagnosis of Diabetes Mellitus. Hematocrit Auto (Bld) [Volum e fraction]Ordered By: Yordy Garg on 11-26-2023 Hematocrit (Bld) [Volume fraction] 27.8 % 38.8-50.0 [facility] Hemoglobin [Mass/volume] in BloodOrdered By: Yordy Garg on 11-26-2023 Hemoglobin (Bld) [Mass/Vol] 9.8 g/dL 13.0-17.0 [facility] No Panel InformationOrdered By: Yordy Garg on 11-26-2023 Estimated GFR (CKD-EPI) 10.339 mL/Min [facility] Creatinine Clearance (Chem 15.44 [facility] Opiates [Presence] in Urine by Screen methodOrdered By: Yordy Garg on 11-26-2023 Opiates Screen Ql (U) Negative Negative [facility] Phencyclidine Screen Ql (U)O rdered By: Yordy Garg on 11-26-2023 Phencyclidine Ql (U) Negative Negative [facility] Potassium [Moles/volume] in Serum or PlasmaOrdered By: Yordy Garg on 11-26-2023 Potassium [Moles/Vol] 4.0 mmol/L 3.5-5.1 [facility] Serum or plasma anion gap de terminationOrdered By: Yordy Garg on 11-26-2023 Anion gap [Moles/Vol] 15.0 mmol/L 6.0-15.0 [facility] Sodium [Moles/volume] in Ser um or PlasmaOrdered By: Yordy Garg on 11-26-2023 Sodium [Moles/Vol] 129 mmol/L 136-145 [facility] Urea nitrogen [Mass/volume] in Serum or PlasmaOrdered By: Yordy Garg on 11-26-2023 Urea nitrogen [Mass/Vol] 43 mg/dL 7-25 [facility] Patient Letter FTon 2023 Patient Letter [facility] (Inserted Image. Erica ble to display) November 18, 2023 YOEL WERNER [address] [place] [id number] : 1985 Dear Yoel, You missed your [...] any future cancellations. Sincerely, [facility] [address], [place] [address] [facility] Activated partial thrombopla stin time (aPTT) in platelet poor plasma by coagulation aOrdered By: Kavya Chapman on 10-02-2023 aPTT Coag (PPP) [Time] 31.7 s 25.1-36.5 [facility] Comment on above: A hematocrit value g reater than 55% may lead to inaccurate results in coagulation testing. Patients having hematocrit values >55% require a special collection tube for coagulation studies. Please contact the laboratory at [phone] for redraw instructions. Basophils Auto (Bld) [#/Vol] Ordered By: Kavya Chapman on 10-02-2023 Basophils (Bld) [#/Vol] 0.1 10*3/uL 0.0-0.2 [facility] Basophils/100 WBC Auto (Bld) Ordered By: Kavya Chapman on 10-02-2023 Basophils/100 WBC (Bld) 1.2 % . [facility] Calcium [Mass/volume] in Ser um or PlasmaOrdered By: Kavya Chapman on 10-02-2023 Calcium [Mass/Vol] 8.5 mg/dL 8.6-10.3 [facility] Carbon dioxide, total [Moles /volume] in Serum or PlasmaOrdered By: Kavya Chapman on 10-02-2023 CO2 [Moles/Vol] 28.7 mmol/L 21.0-31.0 [place] Chloride [Moles/volume] in S gretta or PlasmaOrdered By: Kavya Chapman on 10-02-2023 Chloride [Moles/Vol] 97 mmol/L 98-107 [facility] [facility] Creatine kinase [Enzymatic a ctivity/volume] in Serum or PlasmaOrdered By: Kavya Chapman on 10-02-2023 CK [Catalytic activity/Vol] 48 U/L 30-223 [facility] Creatinine [Mass/volume] in Serum or PlasmaOrdered By: Kavya Chapman on 10-02-2023 Creatinine [Mass/Vol] 4.60 mg/dL 0.70-1.30 [facility] Eosinophils Auto (Bld) [#/Vo l]Ordered By: Kavyaselma Chapman on 10-02-2023 Eosinophils (Bld) [#/Vol] 0.2 10*3/uL 0.0-0.45 [facility] Eosinophils/100 WBC Auto (Bl d)Ordered By: Kavyaselma Chapman on 10-02-2023 Eosinophils/100 WBC (Bld) 2.4 % . [facility] Erythrocyte distribution wid th Auto (RBC) [Ratio]Ordered By: Kavyaselma Chapman on 10-02-2023 Erythrocyte distribution width (RBC) [Ratio] 14.4 % 12.0-14.8 [facility] Glucose [Mass/volume] in Ser um or PlasmaOrdered By: Kavya Chapman on 10-02-2023 Glucose [Mass/Vol] 214 mg/dL 70-100 [facility] Comment on above: ADA recommended refe rence rangeRandom Glucose Reference Range is dependent on time and content of last meal. Glucose of more than 200 mg/dL in a nonstressed, ambulatory subject supports the diagnosis of Diabetes Mellitus. Hematocrit Auto (Bld) [Volum e fraction]Ordered By: Kavya Chapman on 10-02-2023 Hematocrit (Bld) [Volume fraction] 28.2 % 38.8-50.0 [facility] Hemoglobin [Mass/volume] in BloodOrdered By: Kavyaselma Chapman on 10-02-2023 Hemoglobin (Bld) [Mass/Vol] 9.8 g/dL 13.0-17.0 [facility] INR in Platelet poor plasma by Coagulation assayOrdered By: Kavya Chapman on 10-02-2023 INR Coag (PPP) [Relative time] 1.0 {INR} [facility] Comment on above: INR Therapeutic Rang [...] in Blood by Automated counOrdered By: Kavya Chapman on 10-02-2023 WBC corrected for nucl RBC Auto (Bld) [#/Vol] 7.7 10*3/uL 4.1-10.5 [facility] Lymphocytes Auto (Bld) [#/Vo l]Ordered By: Kavya Chapman on 10-02-2023 Lymphocytes (Bld) [#/Vol] 1.0 10*3/uL 1.00-4.8 [facility] Lymphocytes/100 WBC Auto (Bl d)Ordered By: Kavya Chapman on 10-02-2023 Lymphocytes/100 WBC (Bld) 12.5 % . [facility] MCH Auto (RBC) [Entitic mass ]Ordered By: Kavya Chapman on 10-02-2023 MCH (RBC) [Entitic mass] 31.3 pg 27.5-35.2 [facility] MCHC Auto (RBC) [Mass/Vol]Or dered By: Kavya Chapman on 10-02-2023 MCHC (RBC) [Mass/Vol] 34.8 g/dL 32.5-35.6 [facility] MCV Auto (RBC) [Entitic vol] Ordered By: Kavya Chapman on 10-02-2023 MCV (RBC) [Entitic vol] 89.8 fL 83.5-101 [facility] Monocyte distribution width [Entitic volume] in Blood by AutomatedOrdered By: Kavya Chapman on 10-02-2023 Monocyte distribution width Auto (Bld) [Entitic vol] 17.27 % 0.00-20.00 [facility] Monocytes Auto (Bld) [#/Vol] Ordered By: Kavya Bullimore on 10-02-2023 Monocytes (Bld) [#/Vol] 0.3 10*3/uL 0.0-0.8 [facility] Monocytes/100 WBC Auto (Bld) Ordered By: Kavya Bullimore on 10-02-2023 Monocytes/100 WBC (Bld) 3.5 % . [facility] Natriuretic peptide B [Mass/ Vol]Ordered By: Kavya Bullimore on 10-02-2023 Natriuretic peptide B (Bld) [Mass/Vol] 611.0 pg/mL 5-100 [facility] Neutrophils Auto (Bld) [#/Vo l]Ordered By: Kavya Bullimore on 10-02-2023 Neutrophils (Bld) [#/Vol] 6.2 10*3/uL 1.8-7.7 [facility] Neutrophils/100 WBC Auto (Bl d)Ordered By: Kavya Bullimore on 10-02-2023 Neutrophils/100 WBC (Bld) 80.4 % . [facility] No Panel InformationOrdered By: Kavya Bullimore on 10-02-2023 Estimated GFR (CKD-EPI) 15.828 mL/Min [facility] Creatinine Clearance (Chem 22.79 [facility] Nucleated erythrocytes [Pres ence] in Blood by Automated countOrdered By: Kavya Bullimore on 10-02-2023 Nucleated RBC Auto Ql (Bld) 0.0 /100{WBC} 0-0.5 [facility] Platelet mean volume Auto (B ld) [Entitic vol]Ordered By: Kavya Bullimore on 10-02-2023 Platelet mean volume (Bld) [Entitic vol] 7.4 fL 6.6-10.1 [facility] Platelets Auto (Bld) [#/Vol] Ordered By: Kavya Bullimore on 10-02-2023 Platelets (Bld) [#/Vol] 143 10*3/uL 150-450 [facility] Potassium [Moles/volume] in Serum or PlasmaOrdered By: Kavya Bullimore on 10-02-2023 Potassium [Moles/Vol] 3.7 mmol/L 3.5-5.1 [facility] Prothrombin time (PT)Ordered By: Kavya Chapman on 10-02-2023 PT Coag (PPP) [Time] 12.0 s 9.0-12.9 [facility] Comment on above: A hematocrit value g reater than 55% may lead to inaccurate results in coagulation testing. Patients having hematocrit values >55% require a special collection tube for coagulation studies. Please contact the laboratory at [phone] for redraw instructions. RBC Auto (Bld) [#/Vol]Ordere d By: Kavya Chapman on 10-02-2023 RBC (Bld) [#/Vol] 3.14 10*6/uL 3.90-5.60 [facility] Serum or plasma anion gap de terminationOrdered By: Kavya Chapman on 10-02-2023 Anion gap [Moles/Vol] 14.0 mmol/L 6.0-15.0 [facility] Sodium [Moles/volume] in Ser um or PlasmaOrdered By: Kavya Chapman on 10-02-2023 Sodium [Moles/Vol] 136 mmol/L 136-145 [facility] Troponin I.cardiac [Mass/vol ume] in Serum or Plasma by Detection limit <= 0.01 ng/Ordered By: Kavya Chapman on 10-02-2023 Troponin I.cardiac DL <= 0.01 ng/mL [Mass/Vol] 31.0 pg/mL 0.0-20.0 [facility] Urea nitrogen [Mass/volume] in Serum or PlasmaOrdered By: Kavya Chapman on 10-02-2023 Urea nitrogen [Mass/Vol] 34 mg/dL 7-25 [facility] WBC Auto (Bld) [#/Vol]Ordere d By: Kavya Chapman on 10-02-2023 WBC (Bld) [#/Vol] 7.7 10*3/uL 4.1-10.5 [facility] Alanine aminotransferase [En zymatic activity/volume] in Serum or PlasmaOrdered By: Va Forte on 09-24-2023 ALT [Catalytic activity/Vol] 11 U/L 7-52 [facility] Albumin [Mass/volume] in Ser um or PlasmaOrdered By: Va Forte on 09-24-2023 Albumin [Mass/Vol] 3.7 g/dL 2.9-4.4 [facility] Albumin [Mass/volume] in Ser um or Plasma by Bromocresol green (BCG) dye binding methoOrdered By: Va Forte on 09-24-2023 Albumin BCG dye [Mass/Vol] 3.6 g/dL 3.5-5.7 [facility] Alkaline phosphatase [Enzyma tic activity/volume] in Serum or PlasmaOrdered By: Va Forte on 09-24-2023 ALP [Catalytic activity/Vol] 63 U/L 34-104 [facility] Aspartate aminotransferase [ Enzymatic activity/volume] in Serum or PlasmaOrdered By: Va Forte on 09-24-2023 AST [Catalytic activity/Vol] 12 U/L 13-39 [facility] Basophils Auto (Bld) [#/Vol] Ordered By: Va Forte on 09-24-2023 Basophils (Bld) [#/Vol] 0.1 10*3/uL 0.0-0.2 [facility] Basophils/100 WBC Auto (Bld) Ordered By: Va Forte on 09-24-2023 Basophils/100 WBC (Bld) 1.4 % . [facility] Bilirubin.total [Mass/volume ] in Serum or PlasmaOrdered By: Va Forte on 09-24-2023 Bilirubin [Mass/Vol] 0.6 mg/dL 0.3-1.0 [facility] Calcium [Mass/volume] in Ser um or PlasmaOrdered By: Va Forte on 09-24-2023 Calcium [Mass/Vol] 8.8 mg/dL 8.6-10.3 [facility] Carbon dioxide, total [Moles /volume] in Serum or PlasmaOrdered By: Va Forte on 09-24-2023 CO2 [Moles/Vol] 30.4 mmol/L 21.0-31.0 [place] Chloride [Moles/volume] in S gretta or PlasmaOrdered By: Va Forte on 09-24-2023 Chloride [Moles/Vol] 98 mmol/L 98-107 [facility] Comprehensive metabolic pane elvin 09-24-2023 Albumin [Mass/Vol] 3.6 g/dL 3.5 - 5.7 g/dL [facility] Albumin/Globulin [Mass ratio] 1.3 {ratio} [facility] ALP [Catalytic activity/Vol] 63 U/L 34 - 104 U/L [facility] ALT [Catalytic activity/Vol] 11 U/L 7 - 52 U/L [facility] Anion gap [Moles/Vol] 10.8 mmol/L 6.0 - 15.0 [facility] AST [Catalytic activity/Vol] 12 U/L Low 13 - 39 U/L [facility] Bilirubin [Mass/Vol] 0.6 mg/dL 0.3 - 1 .0 mg/dL [facility] Calcium [Mass/Vol] 8.8 mg/dL 8.6 - 10. 3 mg/dL [facility] Chloride [Moles/Vol] 98 mmol/L 98 - 10 7 mmol/L [facility] CO2 [Moles/Vol] 30.4 mmol/L 21.0 - 31.0 mmol/L [facility] Creatinine (U) [Mass/Vol] 5.66 mg/dL High 0.70 - 1.30 mg/dL [facility] CREATININE CLR CALC PHARMACY 19.04 [facility] GFR/1.73 sq M.predicted MDRD (S/P/Bld) [Vol rate/Area] 12.341 mL/min/{1.73_m2} [facility] Globulin (S) [Mass/Vol] 2.7 g/dL [facility] Glucose [Mass/Vol] 175 mg/dL High 70 - 100 mg/dL [facility] Comment on above: Random Glucose Refer ence Range is dependent on time and content of last meal. Glucose of more than 200 mg/dL in a nonstressed, ambulatory subject supports the diagnosis of Diabetes Mellitus. ADA recommended reference range Interpretation and review of laboratory results Abnormal [facility] Potassium [Moles/Vol] 4.2 mmol/L 3.5 - 5.1 mmol/L [facility] Protein [Mass/Vol] 6.3 g/dL Low 6.4 - 8.9 g/dL [facility] Sodium [Moles/Vol] 135 mmol/L Low 136 - 145 mmol/L [facility] Urea nitrogen [Mass/Vol] 35 mg/dL High 7 - 25 mg/dL [facility] Creatinine [Mass/volume] in Serum or PlasmaOrdered By: Va Forte on 09-24-2023 Creatinine [Mass/Vol] 5.66 mg/dL 0.70-1.30 [facility] Eosinophils Auto (Bld) [#/Vo l]Ordered By: Va Forte on 09-24-2023 Eosinophils (Bld) [#/Vol] 0.1 10*3/uL 0.0-0.45 [facility] Eosinophils/100 WBC Auto (Bl d)Ordered By: Va Forte on 09-24-2023 Eosinophils/100 WBC (Bld) 1.6 % . [facility] Erythrocyte distribution wid th Auto (RBC) [Ratio]Ordered By: Va Forte on 09-24-2023 Erythrocyte distribution width (RBC) [Ratio] 13.8 % 12.0-14.8 [facility] Globulin Calc (S) [Mass/Vol] Ordered By: Va Forte on 09-24-2023 Globulin (S) [Mass/Vol] 2.7 g/dL [facility] Glucose [Mass/volume] in Ser um or PlasmaOrdered By: Va Forte on 09-24-2023 Glucose [Mass/Vol] 175 mg/dL 70-100 [facility] Comment on above: ADA recommended refe rence rangeRandom Glucose Reference Range is dependent on time and content of last meal. Glucose of more than 200 mg/dL in a nonstressed, ambulatory subject supports the diagnosis of Diabetes Mellitus. Hematocrit Auto (Bld) [Volum e fraction]Ordered By: Va Forte on 09-24-2023 Hematocrit (Bld) [Volume fraction] 30.9 % 38.8-50.0 [facility] Hemoglobin [Mass/volume] in BloodOrdered By: Va Forte on 09-24-2023 Hemoglobin (Bld) [Mass/Vol] 10.8 g/dL 13.0-17.0 [facility] IgA [Mass/volume] in Serum o r PlasmaOrdered By: Va Forte on 09-24-2023 IgA [Mass/Vol] 312 mg/dL 90-386 [facility] IgG [Mass/volume] in Serum o r PlasmaOrdered By: Va Reanna on 09-24-2023 IgG [Mass/Vol] 1183 mg/dL 603-1613 [facility] IgM [Mass/volume] in Serum o r PlasmaOrdered By: Va Forte on 09-24-2023 IgM [Mass/Vol] 166 mg/dL 20-172 [facility] Comment on above: Performed at: [facility] [place] [address] [id number] Director: Pablito Alexander PhD, Phone: [phone] Immunoglobulin light chains. kappa.free [Mass/volume] in SerumOrdered By: Va Forte on 09-24-2023 Immunoglobulin light chains.kappa.free (S) [Mass/Vol] 189.5 mg/L 3.3-19.4 [facility] Immunoglobulin light chains. kappa.free/Immunoglobulin light chains.lambda.free [MassOrdered By: Va Forte on 09-24-2023 Immunoglobulin light chains.kappa.free/Immun oglobulin light chains.lambda.free (S) [Mass ratio] 1.48 0.26-1.65 [facility] Comment on above: Performed at: [facility] [place] [address] [id number] Director: Pablito Alexander PhD, Phone: [phone] Immunoglobulin light chains. lambda.free [Mass/volume] in Serum or PlasmaOrdered By: Va Forte on 09-24-2023 Immunoglobulin light chains.lambda.free [Mass/Vol] 128.2 mg/L 5.7-26.3 [facility] Leukocytes [#/volume] correc celena for nucleated erythrocytes in Blood by Automated counOrdered By: Va Forte on 09-24-2023 WBC corrected for nucl RBC Auto (Bld) [#/Vol] 7.0 10*3/uL 4.1-10.5 [facility] Lymphocytes Auto (Bld) [#/Vo l]Ordered By: Va Forte on 09-24-2023 Lymphocytes (Bld) [#/Vol] 1.2 10*3/uL 1.00-4.8 [facility] Lymphocytes/100 WBC Auto (Bl d)Ordered By: Va Forte on 09-24-2023 Lymphocytes/100 WBC (Bld) 16.8 % . [facility] MCH Auto (RBC) [Entitic mass ]Ordered By: Va Forte on 09-24-2023 MCH (RBC) [Entitic mass] 31.5 pg 27.5-35.2 [facility] MCHC Auto (RBC) [Mass/Vol]Or dered By: Va Forte on 09-24-2023 MCHC (RBC) [Mass/Vol] 34.9 g/dL 32.5-35.6 [facility] MCV Auto (RBC) [Entitic vol] Ordered By: Va Forte on 09-24-2023 MCV (RBC) [Entitic vol] 90.1 fL 83.5-101 [facility] Monocytes Auto (Bld) [#/Vol] Ordered By: Va Forte on 09-24-2023 Monocytes (Bld) [#/Vol] 0.3 10*3/uL 0.0-0.8 [facility] Monocytes/100 WBC Auto (Bld) Ordered By: Va Forte on 09-24-2023 Monocytes/100 WBC (Bld) 4.6 % . [facility] Neutrophils Auto (Bld) [#/Vo l]Ordered By: Va Forte on 09-24-2023 Neutrophils (Bld) [#/Vol] 5.3 10*3/uL 1.8-7.7 [facility] Neutrophils/100 WBC Auto (Bl d)Ordered By: Va Forte on 09-24-2023 Neutrophils/100 WBC (Bld) 75.6 % . [facility] No Panel InformationOrdered By: Va Forte on 09-24-2023 Estimated GFR (CKD-EPI) 12.341 mL/Min [facility] Creatinine Clearance (Chem 19.04 [facility] Protein Electrophoresis [place] Not observed g/dL Not Observed [facility] Protein Electrophoresis Note See comment . [facility] Comment on above: Protein electrophore sis scan will follow via computer,mail, or audiovisual tech delivery.Performed at: [address], [place] [id number] Director: Pablito Alexander PhD, Phone: [phone] Serum Immunofixation See comment . [facility] Comment on above: No monoclonality det ected. Nucleated erythrocytes [Pres ence] in Blood by Automated countOrdered By: Va Forte on 09-24-2023 Nucleated RBC Auto Ql (Bld) 0.1 /100{WBC} 0-0.5 [facility] Platelet mean volume Auto (B ld) [Entitic vol]Ordered By: Va Forte on 09-24-2023 Platelet mean volume (Bld) [Entitic vol] 7.4 fL 6.6-10.1 [facility] Platelets Auto (Bld) [#/Vol] Ordered By: Va Forte on 09-24-2023 Platelets (Bld) [#/Vol] 186 10*3/uL 150-450 [facility] Potassium [Moles/volume] in Serum or PlasmaOrdered By: Va Forte on 09-24-2023 Potassium [Moles/Vol] 4.2 mmol/L 3.5-5.1 [facility] Protein [Mass/volume] in Ser um or PlasmaOrdered By: Va Forte on 09-24-2023 Protein [Mass/Vol] 6.3 g/dL 6.4-8.9 [facility] Protein [Mass/Vol] 6.5 g/dL 6.0-8.5 [facility] RBC Auto (Bld) [#/Vol]Ordere d By: Va Forte on 09-24-2023 RBC (Bld) [#/Vol] 3.43 10*6/uL 3.90-5.60 [facility] Serum globulin measurement ( mass/volume)Ordered By: Va Forte on 09-24-2023 Globulin (S) [Mass/Vol] 2.8 g/dL 2.2-3.9 [facility] Serum or plasma albumin/glob ulin mass ratioOrdered By: Va Forte on 09-24-2023 Albumin/Globulin [Mass ratio] 1.3 {ratio} 0.7-1.7 [facility] Serum or plasma alpha 1 glob ulin measurement by electrophoresis (mass/volume)Ordered By: Va Forte on 09-24-2023 Alpha 1 globulin Elph [Mass/Vol] 0.2 g/dL 0.0-0.4 [facility] Serum or plasma alpha 2 glob ulin measurement by electrophoresis (mass/volume)Ordered By: Va Forte on 09-24-2023 Alpha 2 globulin Elph [Mass/Vol] 0.7 g/dL 0.4-1.0 [facility] Serum or plasma anion gap de terminationOrdered By: Va Forte on 09-24-2023 Anion gap [Moles/Vol] 10.8 mmol/L 6.0-15.0 [facility] Serum or plasma beta globuli n measurement by electrophoresis (mass/volume)Ordered By: Va Forte on 09-24-2023 Beta globulin Elph [Mass/Vol] 0.8 g/dL 0.7-1.3 [facility] Serum or plasma gamma globul in measurement by electrophoresis (mass/volume)Ordered By: Va Forte on 09-24-2023 Gamma globulin Elph [Mass/Vol] 1.2 g/dL 0.4-1.8 [facility] Sodium [Moles/volume] in Ser um or PlasmaOrdered By: Va Forte on 09-24-2023 Sodium [Moles/Vol] 135 mmol/L 136-145 [facility] Urea nitrogen [Mass/volume] in Serum or PlasmaOrdered By: Va Forte on 09-24-2023 Urea nitrogen [Mass/Vol] 35 mg/dL 7-25 [facility] WBC Auto (Bld) [#/Vol]Ordere d By: Va Forte on 09-24-2023 WBC (Bld) [#/Vol] 7.0 10*3/uL 4.1-10.5 [facility] Activated partial thrombopla stin time (aPTT) in platelet poor plasma by coagulation aOrdered By: Law Cano on 08-18-2023 aPTT Coag (PPP) [Time] 37.6 s 25.1-36.5 [facility] Comment on above: A hematocrit value g reater than 55% may lead to inaccurate results in coagulation testing. Patients having hematocrit values >55% require a special collection tube for coagulation studies. Please contact the laboratory at [phone] for redraw instructions. Alanine aminotransferase [En zymatic activity/volume] in Serum or PlasmaOrdered By: Law Cano on 08-18-2023 ALT [Catalytic activity/Vol] 12 U/L 7-52 [facility] Albumin [Mass/volume] in Ser um or Plasma by Bromocresol green (BCG) dye binding methoOrdered By: Law Arvizusojv on 08-18-2023 Albumin BCG dye [Mass/Vol] 3.6 g/dL 3.5-5.7 [facility] Alkaline phosphatase [Enzyma tic activity/volume] in Serum or PlasmaOrdered By: Law Wassojv on 08-18-2023 ALP [Catalytic activity/Vol] 61 U/L 34-104 [facility] Aspartate aminotransferase [ Enzymatic activity/volume] in Serum or PlasmaOrdered By: Law Wassojv on 08-18-2023 AST [Catalytic activity/Vol] 13 U/L 13-39 [facility] Bilirubin.total [Mass/volume ] in Serum or PlasmaOrdered By: Law Wassojv on 08-18-2023 Bilirubin [Mass/Vol] 0.5 mg/dL 0.3-1.0 [facility] Calcium [Mass/volume] in Ser um or PlasmaOrdered By: Law Wassojv on 08-18-2023 Calcium [Mass/Vol] 8.6 mg/dL 8.6-10.3 [facility] Carbon dioxide, total [Moles /volume] in Serum or PlasmaOrdered By: Law Wassojv on 08-18-2023 CO2 [Moles/Vol] 26.0 mmol/L 21.0-31.0 [place] Chloride [Moles/volume] in S gretta or PlasmaOrdered By: Law Wassojv on 08-18-2023 Chloride [Moles/Vol] 98 mmol/L 98-107 [facility] Creatinine [Mass/volume] in Serum or PlasmaOrdered By: Law Arvizuosei on 08-18-2023 Creatinine [Mass/Vol] 6.43 mg/dL 0.70-1.30 [facility] Erythrocyte distribution wid th Auto (RBC) [Ratio]Ordered By: Law Cano on 08-18-2023 Erythrocyte distribution width (RBC) [Ratio] 13.4 % 12.0-14.8 [facility] Globulin Calc (S) [Mass/Vol] Ordered By: Law Cano on 08-18-2023 Globulin (S) [Mass/Vol] 2.6 g/dL [facility] Glucose Glucometer (BldC) [M ass/Vol]Ordered By: Jorge Mederos on 08-18-2023 Glucose [Mass/Vol] 192 mg/dL [facility] Comment on above: Random Glucose Refer ence Range is dependent on time and content of last meal. Glucose of more than 200 mg/dL in a nonstressed, ambulatory subject supports the diagnosis of Diabetes Mellitus. Glucose [Mass/volume] in Ser um or PlasmaOrdered By: Law Cano on 08-18-2023 Glucose [Mass/Vol] 97 mg/dL 70-100 [facility] Comment on above: ADA recommended refe rence rangeRandom Glucose Reference Range is dependent on time and content of last meal. Glucose of more than 200 mg/dL in a nonstressed, ambulatory subject supports the diagnosis of Diabetes Mellitus. Hematocrit Auto (Bld) [Volum e fraction]Ordered By: Law Cano on 08-18-2023 Hematocrit (Bld) [Volume fraction] 34.4 % 38.8-50.0 [facility] Hemoglobin [Mass/volume] in BloodOrdered By: Law Cano on 08-18-2023 Hemoglobin (Bld) [Mass/Vol] 12.0 g/dL 13.0-17.0 [facility] INR in Platelet poor plasma by Coagulation assayOrdered By: Law Cano on 08-18-2023 INR Coag (PPP) [Relative time] 1.1 {INR} [facility] Comment on above: INR Therapeutic Rang [...] RBC Auto (Bld) [#/Vol] 5.4 10*3/uL 4.1-10.5 [facility] MCH Auto (RBC) [Entitic mass ]Ordered By: Law Cano on 08-18-2023 MCH (RBC) [Entitic mass] 31.4 pg 27.5-35.2 [facility] MCHC Auto (RBC) [Mass/Vol]Or dered By: Law Cano on 08-18-2023 MCHC (RBC) [Mass/Vol] 34.8 g/dL 32.5-35.6 [facility] MCV Auto (RBC) [Entitic vol] Ordered By: Law Cano on 08-18-2023 MCV (RBC) [Entitic vol] 90.3 fL 83.5-101 [facility] Magnesium [Mass/volume] in S gretta or PlasmaOrdered By: Law Cano on 08-18-2023 Magnesium [Mass/Vol] 1.9 mg/dL 1.9-2.7 [facility] No Panel InformationOrdered By: Law Cano on 08-18-2023 Estimated GFR (CKD-EPI) 10.590 mL/Min [facility] Creatinine Clearance (Chem 15.78 [facility] Platelet mean volume Auto (B ld) [Entitic vol]Ordered By: Law Cano on 08-18-2023 Platelet mean volume (Bld) [Entitic vol] 8.6 fL 6.6-10.1 [facility] Platelets Auto (Bld) [#/Vol] Ordered By: Law Cano on 08-18-2023 Platelets (Bld) [#/Vol] 99 10*3/uL 150-450 [facility] Potassium [Moles/volume] in Serum or PlasmaOrdered By: Law Cano on 08-18-2023 Potassium [Moles/Vol] 4.0 mmol/L 3.5-5.1 [facility] Protein [Mass/volume] in Ser um or PlasmaOrdered By: Law Cano on 08-18-2023 Protein [Mass/Vol] 6.2 g/dL 6.4-8.9 [facility] Prothrombin time (PT)Ordered By: Law Cano on 08-18-2023 PT Coag (PPP) [Time] 12.0 s 9.0-12.9 [facility] Comment on above: A hematocrit value g reater than 55% may lead to inaccurate results in coagulation testing. Patients having hematocrit values >55% require a special collection tube for coagulation studies. Please contact the laboratory at [phone] for redraw instructions. RBC Auto (Bld) [#/Vol]Ordere d By: Law Cano on 08-18-2023 RBC (Bld) [#/Vol] 3.81 10*6/uL 3.90-5.60 [facility] Serum or plasma albumin/glob ulin mass ratioOrdered By: Law Cano on 08-18-2023 Albumin/Globulin [Mass ratio] 1.4 {ratio} [facility] Serum or plasma anion gap de terminationOrdered By: Law Cano on 08-18-2023 Anion gap [Moles/Vol] 12.0 mmol/L 6.0-15.0 [facility] Sodium [Moles/volume] in Ser um or PlasmaOrdered By: Law Cano on 08-18-2023 Sodium [Moles/Vol] 132 mmol/L 136-145 [facility] Troponin I.cardiac [Mass/vol ume] in Serum or Plasma by Detection limit <= 0.01 ng/Ordered By: Law Cano on 08-18-2023 Troponin I.cardiac DL <= 0.01 ng/mL [Mass/Vol] 38.1 pg/mL 0.0-20.0 [facility] Urea nitrogen [Mass/volume] in Serum or PlasmaOrdered By: Law Cano on 08-18-2023 Urea nitrogen [Mass/Vol] 40 mg/dL 03-12 [facility] Physician Referralon 023 Physician Referral [phone] [id number] F Normal [facility] Alanine aminotransferase [En zymatic activity/volume] in Serum or PlasmaOrdered By: Haydee Lira on 03-12-2023 ALT [Catalytic activity/Vol] 13 U/L [facility] Albumin [Mass/volume] in Ser um or PlasmaOrdered By: Haydee Lira on 03-12-2023 Albumin [Mass/Vol] 2.9 g/dL 2.9-4.4 [facility] Albumin [Mass/volume] in Ser um or Plasma by Bromocresol green (BCG) dye binding methoOrdered By: Haydee Lira on 03-12-2023 Albumin BCG dye [Mass/Vol] 3.4 g/dL 3.5-5.7 [facility] Albumin/Protein.total in 24 hour Urine by ElectrophoresisOrdered By: Haydee Lira on 03-12-2023 Albumin Elph (24H U) [Mass fraction] 58.9 % . [facility] Alkaline phosphatase [Enzyma tic activity/volume] in Serum or PlasmaOrdered By: Haydee Lira on 03-12-2023 ALP [Catalytic activity/Vol] 82 U/L 34-104 [facility] Aspartate aminotransferase [ Enzymatic activity/volume] in Serum or PlasmaOrdered By: Haydee Lira on 03-12-2023 AST [Catalytic activity/Vol] 12 U/L 13-39 [facility] Basophils Auto (Bld) [#/Vol] Ordered By: Haydee Lira on 03-12-2023 Basophils (Bld) [#/Vol] 0.1 10*3/uL 0.0-0.2 [facility] Basophils/100 WBC Auto (Bld) Ordered By: Haydee Lira on 03-12-2023 Basophils/100 WBC (Bld) 1.7 % . [facility] Bilirubin.total [Mass/volume ] in Serum or PlasmaOrdered By: Haydee Lira on 03-12-2023 Bilirubin [Mass/Vol] 0.3 mg/dL 0.3-1.0 [facility] Calcium [Mass/volume] in Ser um or PlasmaOrdered By: Haydee Lira on 03-12-2023 Calcium [Mass/Vol] 8.0 mg/dL 8.6-10.3 [facility] Carbon dioxide, total [Moles /volume] in Serum or PlasmaOrdered By: Haydee Lira on 03-12-2023 CO2 [Moles/Vol] 28.8 mmol/L 21.0-31.0 [place] Chloride [Moles/volume] in S gretta or PlasmaOrdered By: Haydee Lira on 03-12-2023 Chloride [Moles/Vol] 99 mmol/L 98-107 [facility] Creatinine [Mass/volume] in Serum or PlasmaOrdered By: Haydee Lira on 03-12-2023 Creatinine [Mass/Vol] 4.29 mg/dL 0.70-1.30 [facility] Eosinophils Auto (Bld) [#/Vo l]Ordered By: Haydee Lira on 03-12-2023 Eosinophils (Bld) [#/Vol] 0.1 10*3/uL 0.0-0.45 [facility] Eosinophils/100 WBC Auto (Bl d)Ordered By: Haydee Lira on 03-12-2023 Eosinophils/100 WBC (Bld) 2.3 % . [facility] Erythrocyte distribution wid th Auto (RBC) [Ratio]Ordered By: Haydee Lira on 03-12-2023 Erythrocyte distribution width (RBC) [Ratio] 12.6 % 12.0-14.8 [facility] Gamma globulin/Protein.total in 24 hour Urine by ElectrophoresisOrdered By: Haydee Lira on 03-12-2023 Gamma globulin Elph (24H U) [Mass fraction] 14.7 % . [place] Globulin Calc (S) [Mass/Vol] Ordered By: Haydee Lira on 03-12-2023 Globulin (S) [Mass/Vol] 2.6 g/dL [facility] Glucose [Mass/volume] in Ser um or PlasmaOrdered By: Haydee Lira on 03-12-2023 Glucose [Mass/Vol] 358 mg/dL 70-100 [facility] Comment on above: ADA recommended refe rence rangeRandom Glucose Reference Range is dependent on time and content of last meal. Glucose of more than 200 mg/dL in a nonstressed, ambulatory subject supports the diagnosis of Diabetes Mellitus. Hematocrit Auto (Bld) [Volum e fraction]Ordered By: Haydee Lira on 03-12-2023 Hematocrit (Bld) [Volume fraction] 27.5 % 38.8-50.0 [facility] Hemoglobin [Mass/volume] in BloodOrdered By: Haydee Lira on 03-12-2023 Hemoglobin (Bld) [Mass/Vol] 9.5 g/dL 13.0-17.0 [facility] IgA [Mass/volume] in Serum o r PlasmaOrdered By: Haydee Lira on 03-12-2023 IgA [Mass/Vol] 307 mg/dL 90-386 [facility] IgG [Mass/volume] in Serum o r PlasmaOrdered By: Haydee Lira on 03-12-2023 IgG [Mass/Vol] 1059 mg/dL 603-1613 [facility] IgM [Mass/volume] in Serum o r PlasmaOrdered By: Haydee Lira on 03-12-2023 IgM [Mass/Vol] 160 mg/dL 20-172 [facility] Immunoglobulin light chains. kappa.free [Mass/volume] in SerumOrdered By: Haydee Lira on 03-12-2023 Immunoglobulin light chains.kappa.free (S) [Mass/Vol] 166.7 mg/L 3.3-19.4 [facility] Immunoglobulin light chains. kappa.free/Immunoglobulin light chains.lambda.free [MassOrdered By: Haydee Lira on 03-12-2023 Immunoglobulin light chains.kappa.free/Immun oglobulin light chains.lambda.free (S) [Mass ratio] 1.54 0.26-1.65 [facility] Comment on above: Performed at: [facility] [address] [id number] Director: Pablito Alexander PhD, Phone: [phone] Immunoglobulin light chains. lambda.free [Mass/volume] in Serum or PlasmaOrdered By: Haydee Lira on 03-12-2023 Immunoglobulin light chains.lambda.free [Mass/Vol] 108.0 mg/L 5.7-26.3 [facility] [place] light chains.free [Mas s/volume] in UrineOrdered By: Jorje Small on 03-12-2023 Immunoglobulin light chains.kappa.free (U) [Mass/Vol] 206.55 mg/L 1.17-86.46 [facility] [place] light chains.free/[place] light chains.free [Mass Ratio] in UrineOrdered By: Jorje Small on 03-12-2023 Immunoglobulin light chains.kappa.free/Immun oglobulin light chains.lambda.free (U) [Mass ratio] 3.03 1.83-14.26 [facility] Comment on above: Performed at: [facility] [address] [id number] Director: Saulo Araujo MD, Phone: [phone] Lambda light chains.free [Ma ss/volume] in UrineOrdered By: Jorje Small on 03-12-2023 Immunoglobulin light chains.lambda.free (U) [Mass/Vol] 68.24 mg/L 0.27-15.21 [facility] Leukocytes [#/volume] correc celena for nucleated erythrocytes in Blood by Automated counOrdered By: Haydee Lira on 03-12-2023 WBC corrected for nucl RBC Auto (Bld) [#/Vol] 6.1 10*3/uL 4.1-10.5 [facility] Lymphocytes Auto (Bld) [#/Vo l]Ordered By: Haydee Lira on 03-12-2023 Lymphocytes (Bld) [#/Vol] 1.2 10*3/uL 1.00-4.8 [facility] Lymphocytes/100 WBC Auto (Bl d)Ordered By: Haydee Lira on 03-12-2023 Lymphocytes/100 WBC (Bld) 19.5 % . [facility] MCH Auto (RBC) [Entitic mass ]Ordered By: Haydee Lira on 03-12-2023 MCH (RBC) [Entitic mass] 30.2 pg 27.5-35.2 [facility] MCHC Auto (RBC) [Mass/Vol]Or dered By: Haydee Lira on 03-12-2023 MCHC (RBC) [Mass/Vol] 34.6 g/dL 32.5-35.6 [facility] MCV Auto (RBC) [Entitic vol] Ordered By: Haydee Lira on 03-12-2023 MCV (RBC) [Entitic vol] 87.2 fL 83.5-101 [facility] Monocytes Auto (Bld) [#/Vol] Ordered By: Haydee Lira on 03-12-2023 Monocytes (Bld) [#/Vol] 0.3 10*3/uL 0.0-0.8 [facility] Monocytes/100 WBC Auto (Bld) Ordered By: Haydee Lira on 03-12-2023 Monocytes/100 WBC (Bld) 5.0 % . [facility] Neutrophils Auto (Bld) [#/Vo l]Ordered By: Haydee Lira on 03-12-2023 Neutrophils (Bld) [#/Vol] 4.4 10*3/uL 1.8-7.7 [facility] Neutrophils/100 WBC Auto (Bl d)Ordered By: Haydee Lira on 03-12-2023 Neutrophils/100 WBC (Bld) 71.5 % . [facility] No Panel InformationOrdered By: Haydee Lira on 03-12-2023 Estimated GFR (CKD-EPI) 17.210 mL/Min [facility] Creatinine Clearance (Chem 25.39 [facility] Protein Electrophoresis M-[place] Not observed g/dL Not Observed [facility] Protein Electrophoresis Note See comment . [facility] Comment on above: Protein electrophore sis scan will follow via computer,mail, or audiovisual tech delivery.Performed at: [employer] [id number] Director: Pablito Alexander PhD, Phone: [phone] Serum Immunofixation Comment: . [facility] Comment on above: Presence of monoclon al protein is unclear at this time. Suggestrepeat in 3 to 6 months if clinically indicated. Urine Random Prot Electrophor Note See comment . [facility] Comment on above: Protein electrophore sis scan will follow via computer,mail, or audiovisual tech delivery.Performed at: [facility] [id number] Director: Pablito Alexander PhD, Phone: [phone] Nucleated erythrocytes [Pres ence] in Blood by Automated countOrdered By: Haydee Lira on 03-12-2023 Nucleated RBC Auto Ql (Bld) 0.0 /100{WBC} 0-0.5 [facility] Platelet mean volume Auto (B ld) [Entitic vol]Ordered By: Haydee Lira on 03-12-2023 Platelet mean volume (Bld) [Entitic vol] 8.4 fL 6.6-10.1 [facility] Platelets Auto (Bld) [#/Vol] Ordered By: Haydee Lira on 03-12-2023 Platelets (Bld) [#/Vol] 175 10*3/uL 150-450 [facility] Potassium [Moles/volume] in Serum or PlasmaOrdered By: Haydee Lira on 03-12-2023 Potassium [Moles/Vol] 4.4 mmol/L 3.5-5.1 [facility] Protein [Mass/volume] in Ser um or PlasmaOrdered By: Haydee Lira on 03-12-2023 Protein [Mass/Vol] 6.0 g/dL 6.4-8.9 [facility] Protein [Mass/Vol] 5.7 g/dL 6.0-8.5 [facility] Protein [Mass/volume] in Uri neOrdered By: Haydee Lira on 03-12-2023 Protein (U) [Mass/Vol] 468.8 mg/dL Not Estab. [facility] Comment on above: Results confirmed on dilution. Protein.monoclonal/Protein.t otal in 24 hour Urine by ElectrophoresisOrdered By: Haydee Lira on 03-12-2023 Protein.monoclonal Elph (24H U) [Mass fraction] Not observed % Not Observed [place] RBC Auto (Bld) [#/Vol]Ordere d By: Haydee Lira on 03-12-2023 RBC (Bld) [#/Vol] 3.15 10*6/uL 3.90-5.60 [facility] Serum globulin measurement ( mass/volume)Ordered By: Haydee Lira on 03-12-2023 Globulin (S) [Mass/Vol] 2.8 g/dL 2.2-3.9 [facility] Serum or plasma albumin/glob ulin mass ratioOrdered By: Haydee Lira on 03-12-2023 Albumin/Globulin [Mass ratio] 1.3 {ratio} [facility] Albumin/Globulin [Mass ratio] 1.0 {ratio} 0.7-1.7 [facility] Serum or plasma alpha 1 glob ulin measurement by electrophoresis (mass/volume)Ordered By: Haydee Lira on 03-12-2023 Alpha 1 globulin Elph [Mass/Vol] 0.2 g/dL 0.0-0.4 [facility] Serum or plasma alpha 2 glob ulin measurement by electrophoresis (mass/volume)Ordered By: Haydee Lira on 03-12-2023 Alpha 2 globulin Elph [Mass/Vol] 0.7 g/dL 0.4-1.0 [facility] Serum or plasma anion gap de terminationOrdered By: Haydee Lira on 03-12-2023 Anion gap [Moles/Vol] 12.6 mmol/L 6.0-15.0 [facility] Serum or plasma beta globuli n measurement by electrophoresis (mass/volume)Ordered By: Haydee Lira on 03-12-2023 Beta globulin Elph [Mass/Vol] 0.8 g/dL 0.7-1.3 [facility] Serum or plasma gamma globul in measurement by electrophoresis (mass/volume)Ordered By: Haydee Lira on 03-12-2023 Gamma globulin Elph [Mass/Vol] 1.1 g/dL 0.4-1.8 [facility] Sodium [Moles/volume] in Ser um or PlasmaOrdered By: Haydee Lira on 03-12-2023 Sodium [Moles/Vol] 136 mmol/L 136-145 [facility] Urea nitrogen [Mass/volume] in Serum or PlasmaOrdered By: Haydee Lira on 03-12-2023 Urea nitrogen [Mass/Vol] 43 mg/dL 03-12 [facility] Urine alpha 1 globulin/total protein by electrophoresisOrdered By: Haydee Lira on 03-12-2023 Alpha 1 globulin Elph (U) [Mass fraction] 7.3 % . [facility] Urine alpha 2 globulin/total protein ratio by electrophoresisOrdered By: Haydee Lira on 03-12-2023 Alpha 2 globulin Elph (U) [Mass fraction] 6.5 % . [facility] Urine beta globulin measurem ent by electrophoresis (mass/volume)Ordered By: Haydee Lira on 03-12-2023 Beta globulin Elph (U) [Mass/Vol] 12.5 % . [facility] WBC Auto (Bld) [#/Vol]Ordere d By: Haydee Lira on 03-12-2023 WBC (Bld) [#/Vol] 6.1 10*3/uL 4.1-10.5 [facility] Albumin [Mass/volume] in Ser um or Plasma by Bromocresol green (BCG) dye binding methoOrdered By: Angel Mejía on 02-27-2023 Albumin BCG dye [Mass/Vol] 3.3 g/dL 3.5-5.7 [facility] Calcium [Mass/volume] in Ser um or PlasmaOrdered By: Angel Mejía on 02-27-2023 Calcium [Mass/Vol] 7.3 mg/dL 8.6-10.3 [facility] Carbon dioxide, total [Moles /volume] in Serum or PlasmaOrdered By: Angel Mejía on 02-27-2023 CO2 [Moles/Vol] 20.1 mmol/L 21.0-31.0 [place] Chloride [Moles/volume] in S gretta or PlasmaOrdered By: Angel Mejía on 02-27-2023 Chloride [Moles/Vol] 107 mmol/L 98-107 [facility] Creatinine [Mass/volume] in Serum or PlasmaOrdered By: Angel Mejía on 02-27-2023 Creatinine [Mass/Vol] 6.60 mg/dL 0.70-1.30 [facility] Erythrocyte distribution wid th Auto (RBC) [Ratio]Ordered By: Angel Mejía on 02-27-2023 Erythrocyte distribution width (RBC) [Ratio] 13.2 % 12.0-14.8 [facility] Ferritin [Mass/volume] in Se rum or PlasmaOrdered By: Angel Mejía on 02-27-2023 Ferritin [Mass/Vol] 73.2 ng/mL 23.9-336.2 [facility] Glucose [Mass/volume] in Ser um or PlasmaOrdered By: Angel Mejía on 02-27-2023 Glucose [Mass/Vol] 173 mg/dL 70-100 [facility] Comment on above: ADA recommended refe rence rangeRandom Glucose Reference Range is dependent on time and content of last meal. Glucose of more than 200 mg/dL in a nonstressed, ambulatory subject supports the diagnosis of Diabetes Mellitus. Hematocrit Auto (Bld) [Volum e fraction]Ordered By: Angel Mejía on 02-27-2023 Hematocrit (Bld) [Volume fraction] 28.0 % 38.8-50.0 [facility] Hemoglobin [Mass/volume] in BloodOrdered By: Angel Mejía 02-27-2023 Hemoglobin (Bld) [Mass/Vol] 9.3 g/dL 13.0-17.0 [facility] Hepatitis B virus surface Ag [Presence] in Serum or Plasma by ImmunoassayOrdered By: Angel Mejía on 02-27-2023 HBV surface Ag IA Ql Negative Negative [facility] Hepatitis C virus IgG Ab [Pr esence] in Serum or Plasma by ImmunoassayOrdered By: Angel Mejía on 02-27-2023 HCV IgG IA Ql Non-Reactive Non Reactive [facility] Hepatitis C virus RNA [Units /volume] (viral load) in Serum or Plasma by HAO with probOrdered By: Angel Mejía on 02-27-2023 HCV RNA HAO+probe Qn N/A [facility] Hepatitis C virus RNA [log u nits/volume] (viral load) in Serum or Plasma by HAO withOrdered By: Angel Mejía on 02-27-2023 HCV RNA HAO+probe [Log units/Vol] N/A [facility] Iron [Mass/volume] in Serum or PlasmaOrdered By: Angel Mejía on 02-27-2023 Iron [Mass/Vol] 64 ug/dL 50-212 [facility] Iron binding capacity [Mass/ volume] in Serum or PlasmaOrdered By: Angel Mejía on 02-27-2023 Iron binding capacity [Mass/Vol] 224 ug/dL 255-450 [facility] Iron saturation [Mass Fracti on] in Serum or PlasmaOrdered By: Angel Mejía on 02-27-2023 Iron saturation [Mass fraction] 28.6 % 20-50 [facility] Leukocytes [#/volume] correc celena for nucleated erythrocytes in Blood by Automated counOrdered By: Angel Mejía on 02-27-2023 WBC corrected for nucl RBC Auto (Bld) [#/Vol] 5.9 10*3/uL 4.1-10.5 [facility] MCH Auto (RBC) [Entitic mass ]Ordered By: Angel Mejía on 02-27-2023 MCH (RBC) [Entitic mass] 29.0 pg 27.5-35.2 [facility] MCHC Auto (RBC) [Mass/Vol]Or dered By: Angel Mejía on 02-27-2023 MCHC (RBC) [Mass/Vol] 33.4 g/dL 32.5-35.6 [facility] MCV Auto (RBC) [Entitic vol] Ordered By: Angel Mejía on 02-27-2023 MCV (RBC) [Entitic vol] 86.9 fL 83.5-101 [facility] Magnesium [Mass/volume] in S gretta or PlasmaOrdered By: Angel Mejía on 02-27-2023 Magnesium [Mass/Vol] 1.7 mg/dL 1.9-2.7 [facility] No Panel InformationOrdered By: Angel Mejía on 02-27-2023 Estimated GFR (CKD-EPI) 10.328 mL/Min [facility] Hepatitis A IgM Antibody Negative Negative [facility] Hepatitis B Core IgM Antibody Negative Negative [facility] Hepatitis C Interpretation See comment . [facility] Comment on above: Not infected with HC V unless early or acute infection issuspected (which may be delayed in an immunocompromisedindividual), or other evidence exists to indicate HCVinfection.Performed at: [facility] [address] [id number] Director: Pablito Alexander PhD, Phone: [phone] Hepatitis C RNA Quantitative N/A [facility] Creatinine Clearance (Chem N/A [facility] Parathyrin.intact [Mass/volu me] in Serum or PlasmaOrdered By: Angel Mejía on 02-27-2023 Parathyrin.intact [Mass/Vol] 713.5 pg/mL [facility] Phosphate [Mass/volume] in S gretta or PlasmaOrdered By: Angel Mejía on 02-27-2023 Phosphate [Mass/Vol] 7.2 mg/dL 3.7-7.2 [facility] Platelet mean volume Auto (B ld) [Entitic vol]Ordered By: Angel Mejía on 02-27-2023 Platelet mean volume (Bld) [Entitic vol] 8.7 fL 6.6-10.1 [facility] Platelets Auto (Bld) [#/Vol] Ordered By: Angel Mejía on 02-27-2023 Platelets (Bld) [#/Vol] 134 10*3/uL 150-450 [facility] Potassium [Moles/volume] in Serum or PlasmaOrdered By: Angel Mejía on 02-27-2023 Potassium [Moles/Vol] 5.1 mmol/L 3.5-5.1 [facility] RBC Auto (Bld) [#/Vol]Ordere d By: Angel Mejía on 02-27-2023 RBC (Bld) [#/Vol] 3.22 10*6/uL 3.90-5.60 [facility] Serum or plasma anion gap de terminationOrdered By: Angel Mejía on 02-27-2023 Anion gap [Moles/Vol] 13.0 mmol/L 6.0-15.0 [facility] Sodium [Moles/volume] in Ser um or PlasmaOrdered By: Angel Mejía on 02-27-2023 Sodium [Moles/Vol] 135 mmol/L 136-145 [facility] Transferrin [Mass/volume] in Serum or PlasmaOrdered By: Angel Mejía on 02-27-2023 Transferrin [Mass/Vol] 160 mg/dL 203-362 [facility] Urea nitrogen [Mass/volume] in Serum or PlasmaOrdered By: Angel Mejía on 02-27-2023 Urea nitrogen [Mass/Vol] 78 mg/dL 7-25 [facility] Vitamin D+Metabolites [Mass/ volume] in Serum or PlasmaOrdered By: Angel Mejía on 02-27-2023 Vitamin D+Metabolites [Mass/Vol] 23.7 ng/mL 30-100 [facility] Comment on above: VITAMIN D STATUS [...] disease), CHF (congestive heart failure), History of W[place] (myocardial infarction) Renew: Aspirin 81 MG Oral [...] we can help. You may also call [phone]; Status:Complete - Retrospective Authorization; Done: [id number] Tobacco Use Screening; Status:Complete; Done: [id number] Patient Instructions Please bring all medicines, vitamins, [...] drug-eluting stents. He has had previous anterior W[place] with revascularization of the LAD. He has [...] No alcohol use Vitals Vital Signs Recorded: [id number] 09:21AM Heart Rate78, R Radial [id number], RUE, Sitting Pcmqkbdxc78, RUE, Sitting Height6 ft Lcmlgj850 lb BMI Dzxzsphxxg10.43 kg/m2 BSA Calculated1.93 Tobacco Usea) Yes Patient [...] . Psychiatr (more content not included)... Normal [employer] Tobacco Screening.on 023 Fall risk assessment c) Not medically indicated -[facility] [employer] [address] DO Work Phone: Tobacco use status CPHS a) Yes M P-[facility] [employer] [address] DO Work Phone: Tobacco Screening. Yes [facility] [address] DO Work Phone: Activated partial thrombopla stin time (aPTT) in platelet poor plasma by coagulation aOrdered By: Denilson Gomez on 01-31-2023 aPTT Coag (PPP) [Time] 40.7 s 25.1-36.5 [facility] Basophils Auto (Bld) [#/Vol] Ordered By: Denilson Gomez on 01-31-2023 Basophils (Bld) [#/Vol] 0.1 10*3/uL 0.0-0.2 [facility] Basophils/100 WBC Auto (Bld) Ordered By: Denilson Gomez on 01-31-2023 Basophils/100 WBC (Bld) 1.7 % . [facility] Carbon dioxide, total [Moles /volume] in Serum or PlasmaOrdered By: Denilson Gomez on 01-31-2023 CO2 [Moles/Vol] 22.2 mmol/L 21.0-31.0 [place] Chloride [Moles/volume] in S gretta or PlasmaOrdered By: Denilson Gomez on 01-31-2023 Chloride [Moles/Vol] 106 mmol/L 98-107 [facility] Cholesterol [Mass/volume] in Serum or PlasmaOrdered By: Denilson Gomez on 01-31-2023 Cholesterol [Mass/Vol] 144 mg/dL 140-200 [facility] Comment on above: Chol less than 200 m g/dl low riskChol 201-239 mg/dl borderline riskChol 240 mg/dl and greater high risk Cholesterol in LDL Calc [Mas s/Vol]Ordered By: Denilson Gomez on 01-31-2023 Cholesterol in LDL [Mass/Vol] 95 mg/dL 0-100 [facility] Comment on above: LDL ATP III CLASSIFI CATIONLDL less than 100 mg/dL OptimalLDL 100-129 mg/dL Near or above optimalLDL 130-159 mg/dL Borderline highLDL 160-189 mg/dL HighLDL greater than 189 mg/dL Very high Cholesterol in VLDL Calc [Ma ss/Vol]Ordered By: Denilson Gomez on 01-31-2023 Cholesterol in VLDL [Mass/Vol] 20 mg/dL [facility] Creatinine [Mass/volume] in Serum or PlasmaOrdered By: Denilson Gomez on 01-31-2023 Creatinine [Mass/Vol] 5.36 mg/dL 0.70-1.30 [facility] Eosinophils Auto (Bld) [#/Vo l]Ordered By: Denilson Gomez on 01-31-2023 Eosinophils (Bld) [#/Vol] 0.2 10*3/uL 0.0-0.45 [facility] Eosinophils/100 WBC Auto (Bl d)Ordered By: Denilson Gomez on 01-31-2023 Eosinophils/100 WBC (Bld) 2.9 % . [facility] Erythrocyte distribution wid th Auto (RBC) [Ratio]Ordered By: Denilson Gomez on 01-31-2023 Erythrocyte distribution width (RBC) [Ratio] 12.9 % 12.0-14.8 [facility] Hematocrit Auto (Bld) [Volum e fraction]Ordered By: Denilson Gomez on 01-31-2023 Hematocrit (Bld) [Volume fraction] 26.0 % 38.8-50.0 [facility] Hemoglobin [Mass/volume] in BloodOrdered By: Denilson Gomez on 01-31-2023 Hemoglobin (Bld) [Mass/Vol] 9.1 g/dL 13.0-17.0 [facility] Laboratory - Chemistry and C hemistry - challengeon 01-31-2023 Cholesterol [Mass/Vol] 144\S\144 Normal 140-200 -[facility] [address] DO Work Phone: Comment on above: Chol less than 200 m g/dl low risk Chol 201-239 mg/dl borderline risk Chol 240 mg/dl and greater high risk Cholesterol in LDL [Mass/Vol] 95\S\95 Normal 0-100 -[facility] [employer]ne [address] DO Work Phone: Comment on above: LDL ATP III CLASSIFI CATION LDL less than 100 mg/dL Optimal LDL 100-129 mg/dL Near or above optimal LDL 130-159 mg/dL Borderline high LDL 160-189 mg/dL High LDL greater than 189 mg/dL Very high Laboratory - CoagulationOrde red By: Denilson Gomez on 01-31-2023 PT Coag (PPP) [Time] 12.7 s 9.0-12.9 [facility] Leukocytes [#/volume] correc celena for nucleated erythrocytes in Blood by Automated counOrdered By: Denilson Gomez on 01-31-2023 WBC corrected for nucl RBC Auto (Bld) [#/Vol] 6.4 10*3/uL 4.1-10.5 [facility] Lymphocytes Auto (Bld) [#/Vo l]Ordered By: Denilson Gomez on 01-31-2023 Lymphocytes (Bld) [#/Vol] 1.0 10*3/uL 1.00-4.8 [facility] Lymphocytes/100 WBC Auto (Bl d)Ordered By: Denilson Gomez on 01-31-2023 Lymphocytes/100 WBC (Bld) 16.1 % . [facility] MCH Auto (RBC) [Entitic mass ]Ordered By: Denilson Gomez on 01-31-2023 MCH (RBC) [Entitic mass] 30.1 pg 27.5-35.2 [facility] MCHC Auto (RBC) [Mass/Vol]Or dered By: Denilson Gomez on 01-31-2023 MCHC (RBC) [Mass/Vol] 34.9 g/dL 32.5-35.6 [facility] MCV Auto (RBC) [Entitic vol] Ordered By: Denilson Gomez on 01-31-2023 MCV (RBC) [Entitic vol] 86.3 fL 83.5-101 [facility] Monocytes Auto (Bld) [#/Vol] Ordered By: Denilson Gomez on 01-31-2023 Monocytes (Bld) [#/Vol] 0.3 10*3/uL 0.0-0.8 [facility] Monocytes/100 WBC Auto (Bld) Ordered By: Denilson Gomez on 01-31-2023 Monocytes/100 WBC (Bld) 4.5 % . [facility] Neutrophils Auto (Bld) [#/Vo l]Ordered By: Denilson Gomez on 01-31-2023 Neutrophils (Bld) [#/Vol] 4.8 10*3/uL 1.8-7.7 [facility] Neutrophils/100 WBC Auto (Bl d)Ordered By: Denilson Gomez on 01-31-2023 Neutrophils/100 WBC (Bld) 74.8 % . [facility] No Panel InformationOrdered By: Denilson Gomez on 01-31-2023 Estimated GFR (CKD-EPI) 13.256 mL/Min [facility] Creatinine Clearance (Chem N/A [facility] No Panel Informationon 01-31 0.1\S\0.1 Normal 0.0-0.2 [facility] [employer] [address] DO Work Phone: Comment on above: PERFORMED BY:[facility] [place], [place] [id number] MEDICAL DIRECTORLEVY GILES M.D. 0.2\S\0.2 Normal 0.0-0.45 [facility] [employer] [address] DO Work Phone: 0.3\S\0.3 Normal 0.0-0.8 [facility] [employer] DO Work Phone: 1.0\S\1.0 Normal 1.00-4.8 [facility]ne [address] DO Work Phone: 4.8\S\4.8 Normal 1.8-7.7 [facility] [employer] DO Work Phone: 0.0\S\0.0 Normal 0-0.5 [facility] [address] DO Work Phone: 1.7\S\1.7 Normal . [facility] mairanne 250 DO Work Phone: [phone] 2.9\S\2.9 Normal . [facility] [address] DO Work Phone: [phone] 4.5\S\4.5 Normal . [facility] [employer] [address] DO Work Phone: [phone] 16.1\S\16.1 Normal . [facility] [address] DO Work Phone: [phone] 74.8\S\74.8 Normal . [facility] [employer] [address] DO Work Phone: [phone] 8.5\S\8.5 Normal 6.6-10.1 [facility] [employer] [address] DO Work Phone: [phone] 159\S\159 Normal 150-450 [facility] [employer] [address] DO Work Phone: [id number] [phone] 12.9\S\12.9 Normal 12.0-14.8 [facility] marianne 250 DO Work Phone: [phone] 34.9\S\34.9 Normal 32.5-35.6 [facility] marianne 250 DO Work Phone: [phone] 30.1\S\30.1 Normal 27.5-35.2 [facility] mar[facility]ne 250 DO Work Phone: [phone] 86.3\S\86.3 Normal 83.5-101 [facility] mar[facility]ne 250 DO Work Phone: [phone] 26.0\S\26.0 below low threshold 38.8-50.0 [facility] marianne 250 DO Work Phone: [phone] 9.1\S\9.1 below low threshold 13.0-17.0 [facility] marianne 250 DO Work Phone: [phone] 3.02\S\3.02 below low threshold 3.90-5.60 [facility] marianne 250 DO Work Phone: [phone] 6.4\S\6.4 Normal 4.1-10.5 [facility] marianne 250 DO Work Phone: [phone] 40.7\S\40.7 above high threshold 25.1-36.5 [facility] marianne 250 DO Work Phone: Comment on above: PERFORMED BY:[place] [id number] [address] [place], [place] [id number] MEDICAL DIRECTORLEVY GILES M.D. 1.1\S\1.1 Normal [facility] [employer] marianne 250 DO Work Phone: Comment on [...] valves: 3 - 4.5 12.7\S\12.7 Normal 9.0-12.9 [facility] [employer] marianne 250 DO Work Phone: [phone] 12.8\S\12.8 Normal 6.0-15.0 [facility] [facility] [employer] marianne 250 DO Work Phone: 22.2\S\22.2 Normal 21.0-31.0 [facility] marianne 250 DO Work Phone: [phone] 106\S\106 Normal 98-107 [facility] marianne 250 DO Work Phone: [phone] 5.0\S\5.0 Normal 3.5-5.1 [facility] [employer] marianne 250 DO Work Phone: 136\S\136 Normal 136-145 [facility] marianne 250 DO Work Phone: [phone] 71\S\71 above high threshold 7-25 -[facility] marianne 250 DO Work Phone: 13.256\S\13.256 Normal [facility] Justin lopes 250 DO Work Phone: 5.36\S\5.36 above high threshold 0.70-1.30 [facility] Justin lopes 250 DO Work Phone: 5.1\S\5.1 Normal <5.0 [facility] Justin Araiza DO Work Phone: Comment on above: PERFORMED BY:[facility], [place] [id number] MEDICAL DIRECTORLEVY GILES M.D. 20\S\20 Normal [facility] Justin lopes 250 DO Work Phone: 103\S\103 Normal 0-149 [facility] marianne Araiza DO Work Phone: Comment on above: TRIG ATP III CLASSIF ICATION TRIG less than 150 mg/dL Normal TRIG 150-199 mg/dL Borderline high TRIG 200-500 mg/dL High TRIG greater than 500 mg/dL Very high Standard traceable to the Center for Disease Conrtrol and Prevention (CDC) test method. 28\S\28 Normal 23-92 [facility] Justin Araiza DO Work Phone: Comment on above: HDL CHOL ATP-III CLA SSIFICATION Cardiovascular Risk HDL > or equal to 60 mg/dL LOW HDL < 40 mg/dL HIGH Nucleated erythrocytes [Pres ence] in Blood by Automated countOrdered By: Denilson Gomez on 01-31-2023 Nucleated RBC Auto Ql (Bld) 0.0 /100{WBC} 0-0.5 [facility] Platelet mean volume Auto (B ld) [Entitic vol]Ordered By: Denilson Gomez on 01-31-2023 Platelet mean volume (Bld) [Entitic vol] 8.5 fL 6.6-10.1 [facility] Platelet poor plasma interna tional normalized ratio (INR) by coagulation assay (relatOrdered By: Denilson Gomez on 01-31-2023 INR Coag (PPP) [Relative time] 1.1 {INR} [facility] Comment on above: INR Therapeutic Rang [...] 01-31-2023 Platelets (Bld) [#/Vol] 159 10*3/uL 150-450 [facility] Potassium [Moles/volume] in Serum or PlasmaOrdered By: Denilson Gomez on 01-31-2023 Potassium [Moles/Vol] 5.0 mmol/L 3.5-5.1 [facility] RBC Auto (Bld) [#/Vol]Ordere d By: Denilson Gomez on 01-31-2023 RBC (Bld) [#/Vol] 3.02 10*6/uL 3.90-5.60 [facility] Serum or plasma anion gap de terminationOrdered By: Denilson Gomez on 01-31-2023 Anion gap [Moles/Vol] 12.8 mmol/L 6.0-15.0 [facility] Serum or plasma high density lipoprotein (HDL) cholesterol measurementOrdered By: Denilson Gomez on 01-31-2023 Cholesterol in HDL [Mass/Vol] 28 mg/dL 23-92 [facility] Comment on above: HDL CHOL ATP-III CLA SSIFICATION Cardiovascular RiskHDL > or equal to 60 mg/dL LOWHDL < 40 mg/dL HIGH Serum or plasma total choles terol/high density lipoprotein (HDL) cholesterol mass ratOrdered By: Denilson Gomez on 01-31-2023 Cholesterol.total/Rosalind sterol in HDL [Mass ratio] 5.1 {ratio} <5.0 [facility] Sodium [Moles/volume] in Ser um or PlasmaOrdered By: Denilson Gomez on 01-31-2023 Sodium [Moles/Vol] 136 mmol/L 136-145 [facility] Triglyceride [Mass/volume] i n Serum or PlasmaOrdered By: Denilson Gomez on 01-31-2023 Triglyceride [Mass/Vol] 103 mg/dL 0-149 [facility] Comment on above: TRIG ATP III CLASSIF ICATIONTRIG less than 150 mg/dL NormalTRIG 150-199 mg/dL Borderline highTRIG 200-500 mg/dL High TRIG greater than 500 mg/dL Very highStandard traceable to the Center for Disease Conrtrol and Prevention (CDC) test method. Urea nitrogen [Mass/volume] in Serum or PlasmaOrdered By: Denilson Gomez on 01-31-2023 Urea nitrogen [Mass/Vol] 71 mg/dL 7-25 [facility] WBC Auto (Bld) [#/Vol]Ordere d By: Denilson Gomez on 01-31-2023 WBC (Bld) [#/Vol] 6.4 10*3/uL 4.1-10.5 [facility] Office Visit (Cardiology)on 01-16-2023 Follow-up visit Diagnoses/Problems Assessed ASHD (arteriosclerotic heart disease) (414.00) (I25.10) History of WV (myocardial infarction) (412) (I25.2) NSTEMI, initial episode of care (410.71) (I21.4) Chronic kidney disease (CKD) (585.9) (N18.9) CHF (congestive heart failure) (428.0) (I50.9) Diabetes mellitus (250.00) (E11.9) Body mass index (BMI) of 21.0 to 21.9 in adult (V85.1) (Z68.21) History of ischemic cardiomyopathy (V45.89) (Z86.79) Orders ASHD (arteriosclerotic heart disease), CHF (congestive heart failure), History of WV (myocardial infarction), NSTEMI, initial episode of care Cardiac Catherization; Status:Active - Retrospective Authorization; Requested for:16Jan2023; ASHD (arteriosclerotic heart disease), Hyperlipidemia, NSTEMI, initial [...] gentleman with severe ischemic cardiomyopathy, prior anterior WV with revascularization of the LAD, more recently [...] negative for complaint. Vitals Vital Signs Recorded: 16Jan2023 10:04AM Heart Rate60, R Radial Mpsnscra498, RUE, Sitting Mlnzsnmho82, RUE, Sitting Height6 ft Fashqk539 lb BMI Eaafibgprx95.7 kg/m2 BSA Calculated1.94 Tobacco Usea) Yes Patient [...] pedal pu (more content not included)... Normal [facility] Screening.on 023 Fall risk assessment a) No falls within the last year [facility] [employer] 250 DO Work Phone: Tobacco use status [facility] a) Yes [facility] [employer] 250 DO Work Phone: Tobacco Screening. Yes [facility] 250 DO Work Phone: Basophils Auto (Bld) [#/Vol] Ordered By: Kim Renteria on 01-09-2023 Basophils (Bld) [#/Vol] 0.1 10*3/uL 0.0-0.2 [facility] Basophils/100 WBC Auto (Bld) Ordered By: Kim Renteria on 01-09-2023 Basophils/100 WBC (Bld) 1.4 % . [facility] Calcium [Mass/volume] in Ser um or PlasmaOrdered By: Kim Renteria on 01-09-2023 Calcium [Mass/Vol] 7.8 mg/dL 8.6-10.3 [facility] Carbon dioxide, total [Moles /volume] in Serum or PlasmaOrdered By: Kim Renteria on 01-09-2023 CO2 [Moles/Vol] 21.0 mmol/L 21.0-31.0 [place] Chloride [Moles/volume] in S gretta or PlasmaOrdered By: Kim Renteria on 01-09-2023 Chloride [Moles/Vol] 108 mmol/L 98-107 [facility] Creatinine [Mass/volume] in Serum or PlasmaOrdered By: Kim Renteria on 01-09-2023 Creatinine [Mass/Vol] 4.82 mg/dL 0.70-1.30 [facility] Eosinophils Auto (Bld) [#/Vo l]Ordered By: Kim Renteria on 01-09-2023 Eosinophils (Bld) [#/Vol] 0.2 10*3/uL 0.0-0.45 [facility] Eosinophils/100 WBC Auto (Bl d)Ordered By: Kim Renteria on 01-09-2023 Eosinophils/100 WBC (Bld) 2.7 % . [facility] Erythrocyte distribution wid th Auto (RBC) [Ratio]Ordered By: Kim Renteria on 01-09-2023 Erythrocyte distribution width (RBC) [Ratio] 13.4 % 12.0-14.8 [facility] Glucose Glucometer (BldC) [M ass/Vol]Ordered By: Justino Boss on 01-09-2023 Glucose [Mass/Vol] 184 mg/dL [facility] Comment on above: Random Glucose Refer ence Range is dependent on time and content of last meal. Glucose of more than 200 mg/dL in a nonstressed, ambulatory subject supports the diagnosis of Diabetes Mellitus. Glucose [Mass/volume] in Ser um or PlasmaOrdered By: Kim Renteria on 01-09-2023 Glucose [Mass/Vol] 176 mg/dL 70-100 [facility] Comment on above: ADA recommended refe rence rangeRandom Glucose Reference Range is dependent on time and content of last meal. Glucose of more than 200 mg/dL in a nonstressed, ambulatory subject supports the diagnosis of Diabetes Mellitus. Hematocrit Auto (Bld) [Volum e fraction]Ordered By: Kim Renteria on 01-09-2023 Hematocrit (Bld) [Volume fraction] 24.7 % 38.8-50.0 [facility] Hemoglobin [Mass/volume] in BloodOrdered By: Kim Renteria on 01-09-2023 Hemoglobin (Bld) [Mass/Vol] 8.7 g/dL 13.0-17.0 [facility] Leukocytes [#/volume] correc celena for nucleated erythrocytes in Blood by Automated counOrdered By: Kim Renteria on 01-09-2023 WBC corrected for nucl RBC Auto (Bld) [#/Vol] 6.7 10*3/uL 4.1-10.5 [facility] Lymphocytes Auto (Bld) [#/Vo l]Ordered By: Kim Renteria on 01-09-2023 Lymphocytes (Bld) [#/Vol] 1.0 10*3/uL 1.00-4.8 [facility] Lymphocytes/100 WBC Auto (Bl d)Ordered By: Kim Renteria on 01-09-2023 Lymphocytes/100 WBC (Bld) 14.8 % . [facility] MCH Auto (RBC) [Entitic mass ]Ordered By: Kim Renteria on 01-09-2023 MCH (RBC) [Entitic mass] 30.6 pg 27.5-35.2 [facility] MCHC Auto (RBC) [Mass/Vol]Or dered By: Kim Renteria on 01-09-2023 MCHC (RBC) [Mass/Vol] 35.2 g/dL 32.5-35.6 [facility] MCV Auto (RBC) [Entitic vol] Ordered By: Kim Renteria on 01-09-2023 MCV (RBC) [Entitic vol] 87.0 fL 83.5-101 [facility] Monocytes Auto (Bld) [#/Vol] Ordered By: Kim Renteria on 01-09-2023 Monocytes (Bld) [#/Vol] 0.5 10*3/uL 0.0-0.8 [facility] Monocytes/100 WBC Auto (Bld) Ordered By: Kim Renteria on 01-09-2023 Monocytes/100 WBC (Bld) 7.2 % . [facility] Neutrophils Auto (Bld) [#/Vo l]Ordered By: Kim Renteria on 01-09-2023 Neutrophils (Bld) [#/Vol] 5.0 10*3/uL 1.8-7.7 [facility] Neutrophils/100 WBC Auto (Bl d)Ordered By: Kim Renteria on 01-09-2023 Neutrophils/100 WBC (Bld) 73.9 % . [facility] No Panel InformationOrdered By: Justino Boss on 01-09-2023 Bedside Glucose Comment Glu2: cleaned meter [facility] No Panel InformationOrdered By: Kim Renteria on 01-09-2023 Estimated GFR (CKD-EPI) 15.059 mL/Min [facility] Creatinine Clearance (Chem 22.44 [facility] Nucleated erythrocytes [Pres ence] in Blood by Automated countOrdered By: Kim Renteria on 01-09-2023 Nucleated RBC Auto Ql (Bld) 0.0 /100{WBC} 0-0.5 [facility] Platelet mean volume Auto (B ld) [Entitic vol]Ordered By: Kim Renteria on 01-09-2023 Platelet mean volume (Bld) [Entitic vol] 7.9 fL 6.6-10.1 [facility] Platelets Auto (Bld) [#/Vol] Ordered By: Kim Renteria on 01-09-2023 Platelets (Bld) [#/Vol] 207 10*3/uL 150-450 [facility] Potassium [Moles/volume] in Serum or PlasmaOrdered By: Kim Renteria on 01-09-2023 Potassium [Moles/Vol] 4.2 mmol/L 3.5-5.1 [facility] RBC Auto (Bld) [#/Vol]Ordere d By: Kim Renteria on 01-09-2023 RBC (Bld) [#/Vol] 2.84 10*6/uL 3.90-5.60 [facility] Serum or plasma anion gap de terminationOrdered By: Kim Renteria on 01-09-2023 Anion gap [Moles/Vol] 12.2 mmol/L 6.0-15.0 [facility] Sodium [Moles/volume] in Ser um or PlasmaOrdered By: Kim Renteria on 01-09-2023 Sodium [Moles/Vol] 137 mmol/L 136-145 [facility] Troponin I.cardiac [Mass/vol ume] in Serum or Plasma by Detection limit <= 0.01 ng/Ordered By: Kim Renteria on 01-09-2023 Troponin I.cardiac DL <= 0.01 ng/mL [Mass/Vol] 25.1 pg/mL 0.0-20.0 [facility] Urea nitrogen [Mass/volume] in Serum or PlasmaOrdered By: Kim Renteria on 01-09-2023 Urea nitrogen [Mass/Vol] 65 mg/dL 7 [facility] WBC Auto (Bld) [#/Vol]Ordere d By: Kim Renteria on 01-09-2023 WBC (Bld) [#/Vol] 6.7 10*3/uL 4.1-10.5 [facility] Albumin [Mass/volume] in Ser um or Plasma by Bromocresol green (BCG) dye binding methoOrdered By: Angel eMjía on 12-25-2022 Albumin BCG dye [Mass/Vol] 3.4 g/dL 3.5-5.7 [facility] Calcium [Mass/volume] in Ser um or PlasmaOrdered By: Angel Mejía on 12-25-2022 Calcium [Mass/Vol] 8.0 mg/dL 8.6-10.3 [facility] Carbon dioxide, total [Moles /volume] in Serum or PlasmaOrdered By: Angel Mejía on 12-25-2022 CO2 [Moles/Vol] 21.4 mmol/L 21.0-31.0 [place] Chloride [Moles/volume] in S gretta or PlasmaOrdered By: Angel Mejía on 12-25-2022 Chloride [Moles/Vol] 104 mmol/L 98-107 [facility] Creatinine [Mass/volume] in Serum or PlasmaOrdered By: Angel Mejía on 12-25-2022 Creatinine [Mass/Vol] 4.68 mg/dL 0.70-1.30 [facility] Erythrocyte distribution wid th Auto (RBC) [Ratio]Ordered By: Angel Mejía on 12-25-2022 Erythrocyte distribution width (RBC) [Ratio] 13.4 % 12.0-14.8 [facility] Ferritin [Mass/volume] in Se rum or PlasmaOrdered By: Angel Mejía on 12-25-2022 Ferritin [Mass/Vol] 87.5 ng/mL 23.9-336.2 [facility] Glucose [Mass/volume] in Ser um or PlasmaOrdered By: Angel Mejía on 12-25-2022 Glucose [Mass/Vol] 187 mg/dL 70-100 [facility] Comment on above: ADA recommended refe rence rangeRandom Glucose Reference Range is dependent on time and content of last meal. Glucose of more than 200 mg/dL in a nonstressed, ambulatory subject supports the diagnosis of Diabetes Mellitus. Hematocrit Auto (Bld) [Volum e fraction]Ordered By: Angel Mejía on 12-25-2022 Hematocrit (Bld) [Volume fraction] 29.0 % 38.8-50.0 [facility] Hemoglobin [Mass/volume] in BloodOrdered By: Angel Mejía on 12-25-2022 Hemoglobin (Bld) [Mass/Vol] 9.8 g/dL 13.0-17.0 [facility] Iron [Mass/volume] in Serum or PlasmaOrdered By: Angel Mejía on 12-25-2022 Iron [Mass/Vol] 61 ug/dL 50-212 [facility] Iron binding capacity [Mass/ volume] in Serum or PlasmaOrdered By: Angel Mejía on 12-25-2022 Iron binding capacity [Mass/Vol] 237 ug/dL 255-450 [facility] Iron saturation [Mass Fracti on] in Serum or PlasmaOrdered By: Angel Mejía on 12-25-2022 Iron saturation [Mass fraction] 25.7 % 20-50 [facility] Leukocytes [#/volume] correc celena for nucleated erythrocytes in Blood by Automated counOrdered By: Angel Mejía on 12-25-2022 WBC corrected for nucl RBC Auto (Bld) [#/Vol] 7.4 10*3/uL 4.1-10.5 [facility] MCH Auto (RBC) [Entitic mass ]Ordered By: Angel Mejía on 12-25-2022 MCH (RBC) [Entitic mass] 29.9 pg 27.5-35.2 [facility] MCHC Auto (RBC) [Mass/Vol]Or dered By: Angel Mejía on 12-25-2022 MCHC (RBC) [Mass/Vol] 33.9 g/dL 32.5-35.6 [facility] MCV Auto (RBC) [Entitic vol] Ordered By: Angel Mejía on 12-25-2022 MCV (RBC) [Entitic vol] 88.3 fL 83.5-101 [facility] No Panel InformationOrdered By: Angel Mejía on 12-25-2022 Estimated GFR (CKD-EPI) 15.601 mL/Min [facility] Creatinine Clearance (Chem N/A [facility] Parathyrin.intact [Mass/volu me] in Serum or PlasmaOrdered By: Angel Mejía on 12-25-2022 Parathyrin.intact [Mass/Vol] 468.7 pg/mL 12-88 [facility] Phosphate [Mass/volume] in S gretta or PlasmaOrdered By: Angel Mejía on 12-25-2022 Phosphate [Mass/Vol] 6.0 mg/dL 3.7-7.2 [facility] Platelet mean volume Auto (B ld) [Entitic vol]Ordered By: Angel Mejía on 12-25-2022 Platelet mean volume (Bld) [Entitic vol] 8.4 fL 6.6-10.1 [facility] Platelets Auto (Bld) [#/Vol] Ordered By: Angel Mejía on 12-25-2022 Platelets (Bld) [#/Vol] 160 10*3/uL 150-450 [facility] Potassium [Moles/volume] in Serum or PlasmaOrdered By: Angel Mejía on 12-25-2022 Potassium [Moles/Vol] 5.1 mmol/L 3.5-5.1 [facility] RBC Auto (Bld) [#/Vol]Ordere d By: Angel Joyce on 12-25-2022 RBC (Bld) [#/Vol] 3.28 10*6/uL 3.90-5.60 [facility] Serum or plasma anion gap de terminationOrdered By: Angel Joyce on 12-25-2022 Anion gap [Moles/Vol] 13.7 mmol/L 6.0-15.0 [facility] Sodium [Moles/volume] in Ser um or PlasmaOrdered By: Angel Joyce on 12-25-2022 Sodium [Moles/Vol] 134 mmol/L 136-145 [facility] Transferrin [Mass/volume] in Serum or PlasmaOrdered By: Angel Joyce on 12-25-2022 Transferrin [Mass/Vol] 169 mg/dL 203-362 [facility] Urea nitrogen [Mass/volume] in Serum or PlasmaOrdered By: Angel Joyce on 12-25-2022 Urea nitrogen [Mass/Vol] 57 mg/dL 7-25 [facility] Basophils Auto (Bld) [#/Vol] Ordered By: Govind Berry on 12-18-2022 Basophils (Bld) [#/Vol] 0.1 10*3/uL 0.0-0.2 [facility] Basophils/100 WBC Auto (Bld) Ordered By: Govind Berry on 12-18-2022 Basophils/100 WBC (Bld) 1.7 % . [facility] Eosinophils Auto (Bld) [#/Vo l]Ordered By: Govind Berry on 12-18-2022 Eosinophils (Bld) [#/Vol] 0.2 10*3/uL 0.0-0.45 [facility] Eosinophils/100 WBC Auto (Bl d)Ordered By: Govind Berry on 12-18-2022 Eosinophils/100 WBC (Bld) 2.5 % . [facility] Erythrocyte distribution wid th Auto (RBC) [Ratio]Ordered By: Govind Berry on 12-18-2022 Erythrocyte distribution width (RBC) [Ratio] 14.1 % 12.0-14.8 [facility] Glucose Glucometer (BldC) [M ass/Vol]Ordered By: Romain Mendoza on 12-18-2022 Glucose [Mass/Vol] 165 mg/dL [facility] Comment on above: Random Glucose Refer ence Range is dependent on time and content of last meal. Glucose of more than 200 mg/dL in a nonstressed, ambulatory subject supports the diagnosis of Diabetes Mellitus. Hematocrit Auto (Bld) [Volum e fraction]Ordered By: Govind Berry on 12-18-2022 Hematocrit (Bld) [Volume fraction] 27.7 % 38.8-50.0 [facility] Hemoglobin [Mass/volume] in BloodOrdered By: Govind Berry on 12-18-2022 Hemoglobin (Bld) [Mass/Vol] 9.4 g/dL 13.0-17.0 [facility] Leukocytes [#/volume] correc celena for nucleated erythrocytes in Blood by Automated counOrdered By: Govind Berry on 12-18-2022 WBC corrected for nucl RBC Auto (Bld) [#/Vol] 8.0 10*3/uL 4.1-10.5 [facility] Lymphocytes Auto (Bld) [#/Vo l]Ordered By: Govind Berry on 12-18-2022 Lymphocytes (Bld) [#/Vol] 1.1 10*3/uL 1.00-4.8 [facility] Lymphocytes/100 WBC Auto (Bl d)Ordered By: Govind Berry on 12-18-2022 Lymphocytes/100 WBC (Bld) 13.5 % . [facility] MCH Auto (RBC) [Entitic mass ]Ordered By: Govind Berry on 12-18-2022 MCH (RBC) [Entitic mass] 30.0 pg 27.5-35.2 [facility] MCHC Auto (RBC) [Mass/Vol]Or dered By: Govind Berry on 12-18-2022 MCHC (RBC) [Mass/Vol] 34.0 g/dL 32.5-35.6 [facility] MCV Auto (RBC) [Entitic vol] Ordered By: Govind Berry on 12-18-2022 MCV (RBC) [Entitic vol] 88.2 fL 83.5-101 [facility] Monocytes Auto (Bld) [#/Vol] Ordered By: Govind Berry on 12-18-2022 Monocytes (Bld) [#/Vol] 0.4 10*3/uL 0.0-0.8 [facility] Monocytes/100 WBC Auto (Bld) Ordered By: Govind Berry on 12-18-2022 Monocytes/100 WBC (Bld) 5.1 % . [facility] Neutrophils Auto (Bld) [#/Vo l]Ordered By: Govind Berry on 12-18-2022 Neutrophils (Bld) [#/Vol] 6.2 10*3/uL 1.8-7.7 [facility] Neutrophils/100 WBC Auto (Bl d)Ordered By: Govind Berry on 12-18-2022 Neutrophils/100 WBC (Bld) 77.2 % . [facility] No Panel InformationOrdered By: Romain Mendoza on 12-18-2022 Bedside Glucose Comment Glu2: cleaned meter [facility] Nucleated erythrocytes [Pres ence] in Blood by Automated countOrdered By: Govind Berry on 12-18-2022 Nucleated RBC Auto Ql (Bld) 0.1 /100{WBC} 0-0.5 [facility] Platelet mean volume Auto (B ld) [Entitic vol]Ordered By: Govind Berry on 12-18-2022 Platelet mean volume (Bld) [Entitic vol] 8.0 fL 6.6-10.1 [facility] Platelets Auto (Bld) [#/Vol] Ordered By: Govind Berry on 12-18-2022 Platelets (Bld) [#/Vol] 167 10*3/uL 150-450 [facility] Potassium [Moles/volume] in Serum or PlasmaOrdered By: Yordy Garg on 12-18-2022 Potassium [Moles/Vol] 4.9 mmol/L 3.5-5.1 [facility] RBC Auto (Bld) [#/Vol]Ordere d By: Govind Berry on 12-18-2022 RBC (Bld) [#/Vol] 3.15 10*6/uL 3.90-5.60 [facility] WBC Auto (Bld) [#/Vol]Ordere d By: Govind Berry on 12-18-2022 WBC (Bld) [#/Vol] 8.0 10*3/uL 4.1-10.5 [facility] Albumin [Mass/volume] in Ser um or Plasma by Bromocresol green (BCG) dye binding methoOrdered By: Angel Mejía on 11-20-2022 Albumin BCG dye [Mass/Vol] 3.3 g/dL 3.5-5.7 [facility] Calcium [Mass/volume] in Ser um or PlasmaOrdered By: Angel Mejía on 11-20-2022 Calcium [Mass/Vol] 8.0 mg/dL 8.6-10.3 [facility] Carbon dioxide, total [Moles /volume] in Serum or PlasmaOrdered By: Angel Mejía on 11-20-2022 CO2 [Moles/Vol] 22.0 mmol/L 21.0-31.0 [place] Chloride [Moles/volume] in S gretta or PlasmaOrdered By: Angel Mejía on 11-20-2022 Chloride [Moles/Vol] 107 mmol/L 98-107 [facility] Creatinine [Mass/volume] in Serum or PlasmaOrdered By: Angel Mejía on 11-20-2022 Creatinine [Mass/Vol] 4.21 mg/dL 0.70-1.30 [facility] Ferritin [Mass/volume] in Se rum or PlasmaOrdered By: Angel Mejía on 11-20-2022 Ferritin [Mass/Vol] 100.2 ng/mL 23.9-336.2 [facility] Glucose [Mass/volume] in Ser um or PlasmaOrdered By: Angel Mejía on 11-20-2022 Glucose [Mass/Vol] 167 mg/dL 70-100 [facility] Comment on above: ADA recommended refe rence rangeRandom Glucose Reference Range is dependent on time and content of last meal. Glucose of more than 200 mg/dL in a nonstressed, ambulatory subject supports the diagnosis of Diabetes Mellitus. Iron [Mass/volume] in Serum or PlasmaOrdered By: Angel Mejía on 11-20-2022 Iron [Mass/Vol] 48 ug/dL 50-212 [facility] Iron binding capacity [Mass/ volume] in Serum or PlasmaOrdered By: Angel Mejía on 11-20-2022 Iron binding capacity [Mass/Vol] 221 ug/dL 255-450 [facility] Iron saturation [Mass Fracti on] in Serum or PlasmaOrdered By: Angel Mejía on 11-20-2022 Iron saturation [Mass fraction] 21.7 % 20-50 [facility] No Panel InformationOrdered By: Angel Mejía on 11-20-2022 Estimated GFR (CKD-EPI) 17.714 mL/Min [facility] Creatinine Clearance (Chem N/A [facility] Phosphate [Mass/volume] in S gretta or PlasmaOrdered By: Angel Mejía on 11-20-2022 Phosphate [Mass/Vol] 6.0 mg/dL 3.7-7.2 [facility] Potassium [Moles/volume] in Serum or PlasmaOrdered By: Angel Mejía 11-20-2022 Potassium [Moles/Vol] 4.5 mmol/L 3.5-5.1 [facility] Serum or plasma anion gap de terminationOrdered By: Angel Mejía 11-20-2022 Anion gap [Moles/Vol] 13.5 mmol/L 6.0-15.0 [facility] Sodium [Moles/volume] in Ser um or PlasmaOrdered By: Angel Mejía on 11-20-2022 Sodium [Moles/Vol] 138 mmol/L 136-145 [facility] Transferrin [Mass/volume] in Serum or PlasmaOrdered By: Angel Mejía on 11-20-2022 Transferrin [Mass/Vol] 158 mg/dL 203-362 [facility] Urea nitrogen [Mass/volume] in Serum or PlasmaOrdered By: Angel Mejía on 11-20-2022 Urea nitrogen [Mass/Vol] 64 mg/dL 7-25 [facility] Activated partial thrombopla stin time (aPTT) in platelet poor plasma by coagulation aOrdered By: Denilson Gomez on 11-12-2022 aPTT Coag (PPP) [Time] 38.0 s 25.1-36.5 [facility] Albumin [Mass/volume] in Ser um or Plasma by Bromocresol green (BCG) dye binding methoOrdered By: Denislon Gomez on 11-12-2022 Albumin BCG dye [Mass/Vol] 3.2 g/dL 3.5-5.7 [facility] Basophils Auto (Bld) [#/Vol] Ordered By: Denilson Gomez on 11-12-2022 Basophils (Bld) [#/Vol] 0.1 10*3/uL 0.0-0.2 [facility] Basophils/100 WBC Auto (Bld) Ordered By: Denilson Gomez on 11-12-2022 Basophils/100 WBC (Bld) 1.4 % . [facility] Calcium [Mass/volume] in Ser um or PlasmaOrdered By: Denilson Gomez on 11-12-2022 Calcium [Mass/Vol] 8.2 mg/dL 8.6-10.3 [facility] Carbon dioxide, total [Moles /volume] in Serum or PlasmaOrdered By: Denilson Gomez on 11-12-2022 CO2 [Moles/Vol] 22.5 mmol/L 21.0-31.0 [place] Chloride [Moles/volume] in S gretta or PlasmaOrdered By: Denilson Gomez on 11-12-2022 Chloride [Moles/Vol] 108 mmol/L 98-107 [facility] Cholesterol [Mass/volume] in Serum or PlasmaOrdered By: Denilson Gomez on 11-12-2022 Cholesterol [Mass/Vol] 143 mg/dL 140-200 [facility] Comment on above: Chol less than 200 m g/dl low riskChol 201-239 mg/dl borderline riskChol 240 mg/dl and greater high risk Cholesterol in LDL Calc [Mas s/Vol]Ordered By: Denilson Gomez on 11-12-2022 Cholesterol in LDL [Mass/Vol] 93 mg/dL 0-100 [facility] Comment on above: LDL ATP III CLASSIFI CATIONLDL less than 100 mg/dL OptimalLDL 100-129 mg/dL Near or above optimalLDL 130-159 mg/dL Borderline highLDL 160-189 mg/dL HighLDL greater than 189 mg/dL Very high Cholesterol in VLDL Calc [Ma ss/Vol]Ordered By: Denilson Gomez on 11-12-2022 Cholesterol in VLDL [Mass/Vol] 19 mg/dL [facility] Creatinine [Mass/volume] in Serum or PlasmaOrdered By: Denilson Gomez on 11-12-2022 Creatinine [Mass/Vol] 4.90 mg/dL 0.70-1.30 [facility] Eosinophils Auto (Bld) [#/Vo l]Ordered By: Denilson Gomez on 11-12-2022 Eosinophils (Bld) [#/Vol] 0.1 10*3/uL 0.0-0.45 [facility] Eosinophils/100 WBC Auto (Bl d)Ordered By: Denilson Gomez on 11-12-2022 Eosinophils/100 WBC (Bld) 1.9 % . [facility] Erythrocyte distribution wid th Auto (RBC) [Ratio]Ordered By: Denilson Gomez on 11-12-2022 Erythrocyte distribution width (RBC) [Ratio] 12.2 % 12.0-14.8 [facility] Glucose [Mass/volume] in Ser um or PlasmaOrdered By: Denilson Gomez on 11-12-2022 Glucose [Mass/Vol] 236 mg/dL 70-100 [facility] Comment on above: ADA recommended refe rence rangeRandom Glucose Reference Range is dependent on time and content of last meal. Glucose of more than 200 mg/dL in a nonstressed, ambulatory subject supports the diagnosis of Diabetes Mellitus. Hematocrit Auto (Bld) [Volum e fraction]Ordered By: Denilson Gomez on 11-12-2022 Hematocrit (Bld) [Volume fraction] 25.5 % 38.8-50.0 [facility] Hemoglobin [Mass/volume] in BloodOrdered By: Denilson Gomez on 11-12-2022 Hemoglobin (Bld) [Mass/Vol] 8.7 g/dL 13.0-17.0 [facility] Laboratory - Chemistry and C hemistry - challengeon 11-12-2022 Cholesterol [Mass/Vol] 143\S\143 Normal 140-200 -[facility]-Sandu marianne 250 DO Work Phone: Comment on above: Chol less than 200 m g/dl low risk Chol 201-239 mg/dl borderline risk Chol 240 mg/dl and greater high risk Cholesterol in LDL [Mass/Vol] 93\S\93 Normal 0-100 -[facility] HeartLawnStarterSandu marianne 250 DO Work Phone: Comment on [...] M.predicted MDRD (S/P/Bld) [Vol rate/Area] 14.764 mL/min/{1.73_m2} [place] [facility] - CoagulationOrde red By: Denilson Gomez on 11-12-2022 PT Coag (PPP) [Time] 12.4 s 9.0-12.9 [facility] Leukocytes [#/volume] correc celena for nucleated erythrocytes in Blood by Automated counOrdered By: Denilson Gomez on 11-12-2022 WBC corrected for nucl RBC Auto (Bld) [#/Vol] 7.6 10*3/uL 4.1-10.5 [facility] Lymphocytes Auto (Bld) [#/Vo l]Ordered By: Denilson Gomez on 11-12-2022 Lymphocytes (Bld) [#/Vol] 1.0 10*3/uL 1.00-4.8 [facility] Lymphocytes/100 WBC Auto (Bl d)Ordered By: Denilson Gomez on 11-12-2022 Lymphocytes/100 WBC (Bld) 13.3 % . [facility] MCH Auto (RBC) [Entitic mass ]Ordered By: Denilson Gomez on 11-12-2022 MCH (RBC) [Entitic mass] 29.8 pg 27.5-35.2 [facility] MCHC Auto (RBC) [Mass/Vol]Or dered By: Denilson Gomez on 11-12-2022 MCHC (RBC) [Mass/Vol] 34.3 g/dL 32.5-35.6 [facility] MCV Auto (RBC) [Entitic vol] Ordered By: Denilson Gomez on 11-12-2022 MCV (RBC) [Entitic vol] 87.0 fL 83.5-101 [facility] Monocytes Auto (Bld) [#/Vol] Ordered By: Denilson Gomez on 11-12-2022 Monocytes (Bld) [#/Vol] 0.2 10*3/uL 0.0-0.8 [facility] Monocytes/100 WBC Auto (Bld) Ordered By: Denilson Gomez on 11-12-2022 Monocytes/100 WBC (Bld) 3.2 % . [facility] Neutrophils Auto (Bld) [#/Vo l]Ordered By: Denilson Gomez on 11-12-2022 Neutrophils (Bld) [#/Vol] 6.1 10*3/uL 1.8-7.7 [facility] Neutrophils/100 WBC Auto (Bl d)Ordered By: Denilson Gomez on 11-12-2022 Neutrophils/100 WBC (Bld) 80.2 % . [facility] No Panel InformationOrdered By: Denilson Gomez on 11-12-2022 Pharmacy Creatinine Clearance (Chem N/A [facility] No Panel Informationon 11-12 38.0\S\38.0 above high threshold 25.1-36.5 [facility]-Veronica marianne 250 DO Work Phone: Comment on above: PERFORMED BY:[facility] [place] [place], [place] [id number] MEDICAL DIRECTORLEVY GILES M.D. 1.1\S\1.1 Normal [facility] [employer] [address] DO Work Phone: Comment on above: [...] valves: 3 - 4.5 12.4\S\12.4 Normal 9.0-12.9 -[facility]-Sandu marianne 250 DO Work Phone: [phone] 80.2\S\80.2 Normal . [facility]-Sandu marianne 250 DO Work Phone: 8.7\S\8.7 below low threshold 13.0-17.0 -[facility]-Sandu marianne 250 DO Work Phone: [phone] 154\S\154 Normal 150-450 -[facility]-Sandu marianne 250 DO Work Phone: 12.2\S\12.2 Normal 12.0-14.8 -[facility]-Sandu marianne 250 DO Work Phone: [phone] 34.3\S\34.3 Normal 32.5-35.6 [facility]-Sandu marianne 250 DO Work Phone: [phone] 29.8\S\29.8 Normal 27.5-35.2 -[facility]-Sandu marianne 250 DO Work Phone: 6.1\S\6.1 Normal 1.8-7.7 [facility]Sandu marianne 250 DO Work Phone: [phone] 0.0\S\0.0 Normal 0-0.5 [facility]Sandu marianne 250 DO Work Phone: [phone] 1.4\S\1.4 Normal . [facility]Sandu marianne 250 DO Work Phone: [phone] 1.9\S\1.9 Normal . [facility]Sandu marianne 250 DO Work Phone: [phone] 3.2\S\3.2 below low threshold 3.5-5.7 -[facility]-Sandu marianne 250 DO Work Phone: [phone] 13.3\S\13.3 Normal . [facility]-Sandu marianne 250 DO Work Phone: [phone] 0.1\S\0.1 Normal 0.0-0.45 -[facility]-Sandu marianne 250 DO Work Phone: [phone] Comment on above: PERFORMED BY:[place] [address] [address] [place], [place] [phone] MEDICAL DIRECTORLEVY GILES M.D. 0.2\S\0.2 Normal 0.0-0.8 [facility]Sandu marianne 250 DO Work Phone: [phone] 1.0\S\1.0 Normal 1.00-4.8 [facility]Sandu marianne 250 DO Work Phone: [phone] 87.0\S\87.0 Normal 83.5-101 [facility]Sandu marianne 250 DO Work Phone: [phone] 25.5\S\25.5 below low threshold 38.8-50.0 [facility]Sandu marianne 250 DO Work Phone: [phone] 2.93\S\2.93 below low threshold 3.90-5.60 [facility]Sandu marianne 250 DO Work Phone: [phone] 7.6\S\7.6 Normal 4.1-10.5 [facility]Sandu marianne 250 DO Work Phone: [phone] 12.1\S\12.1 Normal 6.0-15.0 [facility]Sandu marianne 250 DO Work Phone: [phone] 5.3\S\5.3 Normal 3.7-7.2 [facility]Sandu marianne 250 DO Work Phone: [phone] 8.2\S\8.2 below low threshold 8.6-10.3 [facility]Sandu marianne 250 DO Work Phone: [phone] 22.5\S\22.5 Normal 21.0-31.0 [facility]Sandu marianne 250 DO Work Phone: 108\S\108 above high threshold 98-107 [facility] Justin lopes 250 DO Work Phone: 5.6\S\5.6 above high threshold 3.5-5.1 [facility] Justin lopes 250 DO Work Phone: 137\S\137 Normal 136-145 [facility] Justin lopes 250 DO Work Phone: 4.90\S\4.90 above high threshold 0.70-1.30 [facility] Justin lopes 250 DO Work Phone: 64\S\64 above high threshold 7-25 [facility] Justin lopes 250 DO Work Phone: [phone]\S\236 above high threshold 70-100 [facility] Justin Araiza DO Work Phone: Comment on above: Random Glucose Refer ence Range is dependent on time and content of last meal. Glucose of more than 200 mg/dL in a nonstressed, ambulatory subject supports the diagnosis of Diabetes Mellitus. ADA recommended reference range 4.6\S\4.6 Normal <5.0 [facility] Justin Araiza DO Work Phone: Comment on above: PERFORMED BY:[place] [address] [address] [place], [place] [id number] MEDICAL DIRECTORLEVY GILES M.D. 19\S\19 Normal [facility] Justin Araiza DO Work Phone: 97\S\97 Normal 0-149 [facility] Justin Araiza DO Work Phone: Comment on above: TRIG ATP III CLASSIF ICATION TRIG less than 150 mg/dL Normal TRIG 150-199 mg/dL Borderline high TRIG 200-500 mg/dL High TRIG greater than 500 mg/dL Very high Standard traceable to the Center for Disease Conrtrol and Prevention (CDC) test method. 31\S\31 Normal 29-71 [facility] [employer] [address] DO Work Phone: Comment on above: HDL CHOL ATP-III CLA SSIFICATION Cardiovascular Risk HDL > or equal to 60 mg/dL LOW HDL < 40 mg/dL HIGH 268.6\S\268.6 above high threshold [facility] [employer] [address] DO Work Phone: Comment on above: PERFORMED BY:[place] [address] [address], [place] [id number] MEDICAL DIRECTORLEVY GILES M.D. Nucleated erythrocytes [Pres ence] in Blood by Automated countOrdered By: Deinlson Gomez on 11-12-2022 Nucleated RBC Auto Ql (Bld) 0.0 /100{WBC} 0-0.5 [facility] Parathyrin.intact [Mass/volu me] in Serum or PlasmaOrdered By: Denilson Gomez on 11-12-2022 Parathyrin.intact [Mass/Vol] 268.6 pg/mL [facility] Phosphate [Mass/volume] in S gretta or PlasmaOrdered By: Denilson Gomez on 11-12-2022 Phosphate [Mass/Vol] 5.3 mg/dL 3.7-7.2 [facility] Platelet mean volume Auto (B ld) [Entitic vol]Ordered By: Denilson Gomez on 11-12-2022 Platelet mean volume (Bld) [Entitic vol] 8.7 fL 6.6-10.1 [facility] Platelet poor plasma interna tional normalized ratio (INR) by coagulation assay (relatOrdered By: Denilson Gomez on 11-12-2022 INR Coag (PPP) [Relative time] 1.1 {INR} [facility] Comment on above: INR Therapeutic Rang [...] 11-12-2022 Platelets (Bld) [#/Vol] 154 10*3/uL 150-450 [facility] Potassium [Moles/volume] in Serum or PlasmaOrdered By: Denilson Gomez on 11-12-2022 Potassium [Moles/Vol] 5.6 mmol/L 3.5-5.1 [facility] RBC Auto (Bld) [#/Vol]Ordere d By: Denilson Gomez on 11-12-2022 RBC (Bld) [#/Vol] 2.93 10*6/uL 3.90-5.60 [facility] Serum or plasma anion gap de terminationOrdered By: Denilson Gomez on 11-12-2022 Anion gap [Moles/Vol] 12.1 mmol/L 6.0-15.0 [facility] Serum or plasma high density lipoprotein (HDL) cholesterol measurementOrdered By: Denilson Gomez on 11-12-2022 Cholesterol in HDL [Mass/Vol] 31 mg/dL 29-71 [facility] Comment on above: HDL CHOL ATP-III CLA SSIFICATION Cardiovascular RiskHDL > or equal to 60 mg/dL LOWHDL < 40 mg/dL HIGH Serum or plasma total choles terol/high density lipoprotein (HDL) cholesterol mass ratOrdered By: Denilson Gomez on 11-12-2022 Cholesterol.total/Rosalind sterol in HDL [Mass ratio] 4.6 {ratio} <5.0 [facility] Sodium [Moles/volume] in Ser um or PlasmaOrdered By: Denilson Gomez on 11-12-2022 Sodium [Moles/Vol] 137 mmol/L 136-145 [facility] Triglyceride [Mass/volume] i n Serum or PlasmaOrdered By: Denilson Gomze on 11-12-2022 Triglyceride [Mass/Vol] 97 mg/dL 0-149 [facility] Comment on above: TRIG ATP III CLASSIF ICATIONTRIG less than 150 mg/dL NormalTRIG 150-199 mg/dL Borderline highTRIG 200-500 mg/dL High TRIG greater than 500 mg/dL Very highStandard traceable to the Center for Disease Conrtrol and Prevention (CDC) test method. Urea nitrogen [Mass/volume] in Serum or PlasmaOrdered By: Denilson Gomez on 11-12-2022 Urea nitrogen [Mass/Vol] 64 mg/dL 7 [facility] WBC Auto (Bld) [#/Vol]Ordere d By: Denilson Gomez on 11-12-2022 WBC (Bld) [#/Vol] 7.6 10*3/uL 4.1-10.5 [facility] Office Visit (Cardiology)on 10-18-2022 Follow-up visit Diagnoses/Problems Assessed ASHD (arteriosclerotic heart disease) (414.00) (I25.10) NSTEMI, initial episode of care (410.71) (I21.4) Status post insertion of drug eluting coronary artery stent (V45.82) (Z95.5) History of WV (myocardial infarction) (412) (I25.2) CHF (congestive heart [...] we can help. You may also call [phone] for free resources and assistance.; Status:Complete - [...] follow-up of a hospitalization for chest pain. [facility]. 37-year-old gentleman returns following recent hospitalization for unstable angina and hypertension and anxiety. We escalated his isosorbide and hydralazine and is feeling much better. Patient has a prior history of anterior WV in October 2021 with primary revascularization of [...] Radial Systolic1 (more content not included)... Normal [facility] Tobacco Screening.on 023 Adult depression screening assessment No [facility] [employer] DO Work Phone: Fall risk assessment a) No falls within the last year [facility] [employer] DO Work Phone: Tobacco use status [facility] a) Yes [facility] [employer] [address] DO Work Phone: Tobacco Screening. Yes [facility] [employer] [address] DO Work Phone: Albumin [Mass/volume] in Ser um or PlasmaOrdered By: Angel Mejía on 10-10-2022 Albumin [Mass/Vol] 2.7 g/dL 3.2-5.[address] [facility] [address] biopsyOrdered By: Varsha ricardo on 10-10-2022 Transferrin [Mass/Vol] 150 mg/dL 180-380 [facility] Calcium [Mass/volume] in Ser um or PlasmaOrdered By: Angel Mejía on 10-10-2022 Calcium [Mass/Vol] 8.1 mg/dL 8.2-10.2 [facility] Carbon dioxide, total [Moles /volume] in Serum or PlasmaOrdered By: Angel Mejía on 10-10-2022 CO2 [Moles/Vol] 23.9 mmol/L 22.0-30.0 [place] Creatinine [Mass/volume] in UrineOrdered By: Angel Mejía on 10-10-2022 Creatinine (U) [Mass/Vol] 84.1 mg/dL [facility] Comment on above: No reference range e stablished Creatinine and Glomerular fi ltration rate.predicted panel (S/P/Bld)Ordered By: Angel Mejía on 10-10-2022 Creatinine [Mass/Vol] 4.60 mg/dL 0.64-1.27 [facility] Erythrocyte distribution wid th Auto (RBC) [Ratio]Ordered By: Angel Mejía on 10-10-2022 Erythrocyte distribution width (RBC) [Ratio] 13.1 % 12.0-14.8 [facility] Estimated glomerular filtrat ion rate (GFR) non- AmericanOrdered By: Angel Mejía on 10-10-2022 GFR/1.73 sq M.predicted among non-blacks MDRD (S/P/Bld) [Vol rate/Area] 14 mL/Min [facility] Ferritin [Mass/volume] in Se rum or PlasmaOrdered By: Angel Mejía on 10-10-2022 Ferritin [Mass/Vol] 86.0 ng/mL 23.9-336.2 [facility] Hematocrit Auto (Bld) [Volum e fraction]Ordered By: Angel Mejía on 10-10-2022 Hematocrit (Bld) [Volume fraction] 24.0 % 38.8-50.0 [facility] Hemoglobin [Mass/volume] in BloodOrdered By: Angel Mejía on 10-10-2022 Hemoglobin (Bld) [Mass/Vol] 8.3 g/dL 13.0-17.0 [facility] Iron [Mass/volume] in Serum or PlasmaOrdered By: Angel Mejía on 10-10-2022 Iron [Mass/Vol] 55 ug/dL 40-160 [facility] Iron binding capacity [Mass/ volume] in Serum or PlasmaOrdered By: Angel Mejía on 10-10-2022 Iron binding capacity [Mass/Vol] 210 ug/dL 255-450 [facility] Iron saturation [Mass Fracti on] in Serum or PlasmaOrdered By: Angel Mejía on 10-10-2022 Iron saturation [Mass fraction] 26.2 % 20-50 [facility] - Chemistry and C hemistry - challengeOrdered By: Angel Mejía on 10-10-2022 Magnesium [Mass/Vol] 2.1 mg/dL 1.6-2.6 [facility] Leukocytes [#/volume] correc celena for nucleated erythrocytes in Blood by Automated counOrdered By: Angel Mejía on 10-10-2022 WBC corrected for nucl RBC Auto (Bld) [#/Vol] 5.6 10*3/uL 4.1-10.5 [facility] MCH Auto (RBC) [Entitic mass ]Ordered By: Angel Mejía on 10-10-2022 MCH (RBC) [Entitic mass] 30.4 pg 27.5-35.2 [facility] MCHC Auto (RBC) [Mass/Vol]Or dered By: Angel Mejía on 10-10-2022 MCHC (RBC) [Mass/Vol] 34.5 g/dL 32.5-35.6 [facility] MCV Auto (RBC) [Entitic vol] Ordered By: Angel Mejía on 10-10-2022 MCV (RBC) [Entitic vol] 88.2 fL 83.5-101 [facility] No Panel InformationOrdered By: Angel Mejía on 10-10-2022 25-Hydroxy Vitamin D Total 8.1 ng/mL 30-100 [facility] Comment on above: VITAMIN D STATUS 25( [place])VITAMIN D RANGE (ng/mL) Deficient <20 Insufficient 20 to <30Sufficient 30 to 100Reference: Vanna BULLARD,Chemo OGLESBY, Sergey SIMENTAL, et al. Evaluation,treatment, and prevention of vitamin D deficiency; an Endocrine Society clinical practice guideline. JCEM. 2010; 96(7):1911-30. Estimated GFR () 17 mL/Min [facility] Comment on above: GFR estimated refere nce range: According to KDOQI guidelines, <60 ml/min/1.73m2 is sufficient to diagnose a patient with chronic kidney disease. Pharmacy Creatinine Clearance (Chem N/A [facility] Parathyrin.intact [Mass/volu me] in Serum or PlasmaOrdered By: Angel Mejía on 10-10-2022 Parathyrin.intact [Mass/Vol] 307.1 pg/mL 12- [facility] Phosphate [Mass/volume] in S gretta or PlasmaOrdered By: Angel Mejía on 10-10-2022 Phosphate [Mass/Vol] 6.5 mg/dL 2.5-4.6 [facility] Platelet mean volume Auto (B ld) [Entitic vol]Ordered By: Angel Mejía on 10-10-2022 Platelet mean volume (Bld) [Entitic vol] 8.3 fL 6.6-10.1 [facility] Platelets Auto (Bld) [#/Vol] Ordered By: Angel Mejía on 10-10-2022 Platelets (Bld) [#/Vol] 185 10*3/uL 150-450 [facility] Protein [Mass/volume] in Uri neOrdered By: Angel Mejía on 10-10-2022 Protein (U) [Mass/Vol] 400 mg/dL 0-9 [facility] RBC Auto (Bld) [#/Vol]Ordere d By: Angel Mejía on 10-10-2022 RBC (Bld) [#/Vol] 2.72 10*6/uL 3.90-5.60 [facility] Serum or plasma anion gap de terminationOrdered By: Angel Mejía on 10-10-2022 Anion gap [Moles/Vol] 10.1 mmol/L 6.0-15.0 [facility] Serum or plasma chloride trina surement (moles/volume)Ordered By: Angel Mejía on 10-10-2022 Chloride [Moles/Vol] 107 mmol/L 95-114 [facility] Serum or plasma glucose farida urement (mass/volume)Ordered By: Angel Mejía on 10-10-2022 Glucose [Mass/Vol] 190 mg/dL 70-100 [facility] Comment on above: ADA recommended refe rence rangeRandom Glucose Reference Range is dependent on time and content of last meal. Glucose of more than 200 mg/dL in a nonstressed, ambulatory subject supports the diagnosis of Diabetes Mellitus. Serum or plasma potassium me asurement (moles/volume)Ordered By: Angel eMjía on 10-10-2022 Potassium [Moles/Vol] 5.0 mmol/L 3.5-5.1 [facility] Serum or plasma sodium measu rement (moles/volume)Ordered By: Angel Mejía on 10-10-2022 Sodium [Moles/Vol] 136 mmol/L 136-146 [facility] Urea nitrogen [Mass/volume] in Serum or PlasmaOrdered By: Angel Mejía on 10-10-2022 Urea nitrogen [Mass/Vol] 57 mg/dL 9-23 [facility] Urine protein/creatinine rat ioOrdered By: Angel Mejía on 10-10-2022 Protein/Creatinine (U) [Ratio] 4756 mg/g{Cre} 0-200 [facility] Activated partial thrombopla stin time (aPTT) in platelet poor plasma by coagulation aOrdered By: Robyn Jose on 10-03-2022 aPTT Coag (PPP) [Time] 37.1 s 25.1-36.5 [facility] Basophils Auto (Bld) [#/Vol] Ordered By: Reina Renae on 10-03-2022 Basophils (Bld) [#/Vol] 0.1 10*3/uL 0.0-0.2 [facility] Basophils/100 WBC Auto (Bld) Ordered By: Reina Renae on 10-03-2022 Basophils/100 WBC (Bld) 1.0 % . [facility] Creatine kinase [Enzymatic a ctivity/volume] in Serum or PlasmaOrdered By: Reina Renae on 10-03-2022 CK [Catalytic activity/Vol] 213 U/L 22269 [facility] CK [Catalytic activity/Vol] 243 U/L [facility] Creatine kinase.MB [Mass/vol ume] in Serum or PlasmaOrdered By: Reina Renae on 10-03-2022 CK.MB [Mass/Vol] 5.6 ng/mL 0.6-6.3 [place] CK.MB [Mass/Vol] 5.9 ng/mL 0.6-6.3 [place] Creatinine and Glomerular fi ltration rate.predicted panel (S/P/Bld)Ordered By: Reina Renae on 10-03-2022 Creatinine [Mass/Vol] 4.17 mg/dL 0.64-1.27 [facility] Eosinophils Auto (Bld) [#/Vo l]Ordered By: Reina Renae on 10-03-2022 Eosinophils (Bld) [#/Vol] 0.2 10*3/uL 0.0-0.45 [facility] Eosinophils/100 WBC Auto (Bl d)Ordered By: Reina Renae on 10-03-2022 Eosinophils/100 WBC (Bld) 2.7 % . [facility] Erythrocyte distribution wid th Auto (RBC) [Ratio]Ordered By: Reina Renae on 10-03-2022 Erythrocyte distribution width (RBC) [Ratio] 13.3 % 12.0-14.8 [facility] Estimated glomerular filtrat ion rate (GFR) non- AmericanOrdered By: Reina Renae on 10-03-2022 GFR/1.73 sq M.predicted among non-blacks MDRD (S/P/Bld) [Vol rate/Area] 16 mL/Min [facility] Glucose Glucometer (BldC) [M ass/Vol]Ordered By: Ross Catherine on 10-03-2022 Glucose [Mass/Vol] 214 mg/dL [facility] Comment on above: Random Glucose Refer ence Range is dependent on time and content of last meal. Glucose of more than 200 mg/dL in a nonstressed, ambulatory subject supports the diagnosis of Diabetes Mellitus. Hematocrit Auto (Bld) [Volum e fraction]Ordered By: Reina Renae on 10-03-2022 Hematocrit (Bld) [Volume fraction] 24.9 % 38.8-50.0 [facility] Hemoglobin [Mass/volume] in BloodOrdered By: Reina Renae on 10-03-2022 Hemoglobin (Bld) [Mass/Vol] 8.5 g/dL 13.0-17.0 [facility] Leukocytes [#/volume] correc celena for nucleated erythrocytes in Blood by Automated counOrdered By: Reina Renae on 10-03-2022 WBC corrected for nucl RBC Auto (Bld) [#/Vol] 6.4 10*3/uL 4.1-10.5 [facility] Lymphocytes Auto (Bld) [#/Vo l]Ordered By: Reina Renae on 10-03-2022 Lymphocytes (Bld) [#/Vol] 1.7 10*3/uL 1.00-4.8 [facility] Lymphocytes/100 WBC Auto (Bl d)Ordered By: Reina Renae on 10-03-2022 Lymphocytes/100 WBC (Bld) 26.3 % . [facility] MCH Auto (RBC) [Entitic mass ]Ordered By: Reina Renae on 10-03-2022 MCH (RBC) [Entitic mass] 29.8 pg 27.5-35.2 [facility] MCHC Auto (RBC) [Mass/Vol]Or dered By: Reina Renae on 10-03-2022 MCHC (RBC) [Mass/Vol] 34.3 g/dL 32.5-35.6 [facility] MCV Auto (RBC) [Entitic vol] Ordered By: Reina Renae on 10-03-2022 MCV (RBC) [Entitic vol] 86.9 fL 83.5-101 [facility] Monocytes Auto (Bld) [#/Vol] Ordered By: Reina Renae on 10-03-2022 Monocytes (Bld) [#/Vol] 0.3 10*3/uL 0.0-0.8 [facility] Monocytes/100 WBC Auto (Bld) Ordered By: Reina Renae on 10-03-2022 Monocytes/100 WBC (Bld) 5.4 % . [facility] Neutrophils Auto (Bld) [#/Vo l]Ordered By: Reina Renae on 10-03-2022 Neutrophils (Bld) [#/Vol] 4.1 10*3/uL 1.8-7.7 [facility] Neutrophils/100 WBC Auto (Bl d)Ordered By: Reina Renae on 10-03-2022 Neutrophils/100 WBC (Bld) 64.6 % . [facility] No Panel InformationOrdered By: Ross Catherine on 10-03-2022 Bedside Glucose Comment Glu2: cleaned meter [facility] No Panel InformationOrdered By: Reina Renae on 10-03-2022 Estimated GFR () 20 mL/Min [facility] Comment on above: GFR estimated refere nce range: According to KDOQI guidelines, <60 ml/min/1.73m2 is sufficient to diagnose a patient with chronic kidney disease. Pharmacy Creatinine Clearance (Chem 25.45 [facility] Nucleated erythrocytes [Pres ence] in Blood by Automated countOrdered By: Reina Renae on 10-03-2022 Nucleated RBC Auto Ql (Bld) 0.2 /100{WBC} 0-0.5 [facility] Platelet mean volume Auto (B ld) [Entitic vol]Ordered By: Reina Renae on 10-03-2022 Platelet mean volume (Bld) [Entitic vol] 8.2 fL 6.6-10.1 [facility] Platelets Auto (Bld) [#/Vol] Ordered By: Reina Renae on 10-03-2022 Platelets (Bld) [#/Vol] 176 10*3/uL 150-450 [facility] RBC Auto (Bld) [#/Vol]Ordere d By: Reina Renae on 10-03-2022 RBC (Bld) [#/Vol] 2.86 10*6/uL 3.90-5.60 [facility] Serum or plasma anion gap de terminationOrdered By: Reina Renae on 10-03-2022 Anion gap [Moles/Vol] 10.1 mmol/L 6.0-15.0 [facility] Serum or plasma calcium farida urement (mass/volume)Ordered By: Reina Renae on 10-03-2022 Calcium [Mass/Vol] 8.0 mg/dL 8.2-10.2 [facility] Serum or plasma chloride trina surement (moles/volume)Ordered By: Reina Renae on 10-03-2022 Chloride [Moles/Vol] 108 mmol/L 95-114 [facility] Serum or plasma creatine kin ase MB (CKMB)/total creatine kinase (CK) ratio by calculaOrdered By: Reina Renae on 10-03-2022 CK.MB Calc [Catalytic fraction] 2.6 % 0.00-2.50 [facility] CK.MB Calc [Catalytic fraction] 2.4 % 0.00-2.50 [facility] Serum or plasma glucose farida urement (mass/volume)Ordered By: Reina Renae on 10-03-2022 Glucose [Mass/Vol] 248 mg/dL 70-100 [facility] Comment on above: ADA recommended refe rence rangeRandom Glucose Reference Range is dependent on time and content of last meal. Glucose of more than 200 mg/dL in a nonstressed, ambulatory subject supports the diagnosis of Diabetes Mellitus. Serum or plasma potassium me asurement (moles/volume)Ordered By: Reina Renae on 10-03-2022 Potassium [Moles/Vol] 4.7 mmol/L 3.5-5.1 [facility] Serum or plasma sodium measu rement (moles/volume)Ordered By: Reina Renae on 10-03-2022 Sodium [Moles/Vol] 136 mmol/L 136-146 [facility] Serum or plasma total carbon dioxide measurement (moles/volume)Ordered By: Reina Renae on 10-03-2022 CO2 [Moles/Vol] 22.6 mmol/L 22.0-30.0 [place] Serum or plasma urea nitroge n measurement (mass/volume)Ordered By: Reina Renae on 10-03-2022 Urea nitrogen [Mass/Vol] 55 mg/dL 9-23 [facility] Troponin I.cardiac [Mass/vol ume] in Serum or Plasma by High sensitivity methodOrdered By: Reina Renae on 10-03-2022 Troponin I.cardiac High sensitivity method [Mass/Vol] 18 pg/mL 0-20 [facility] Troponin I.cardiac High sensitivity method [Mass/Vol] 18 pg/mL 0-20 [facility] WBC Auto (Bld) [#/Vol]Ordere d By: Reina Renae on 10-03-2022 WBC (Bld) [#/Vol] 6.4 10*3/uL 4.1-10.5 [facility] Basophils Auto (Bld) [#/Vol] Ordered By: Robyn Jose on 10-02-2022 Basophils (Bld) [#/Vol] 0.1 10*3/uL 0.0-0.2 [facility] Basophils/100 WBC Auto (Bld) Ordered By: Robyn Jose on 10-02-2022 Basophils/100 WBC (Bld) 1.7 % . [facility] Creatinine and Glomerular fi ltration rate.predicted panel (S/P/Bld)Ordered By: Robyn Jose on 10-02-2022 Creatinine [Mass/Vol] 4.16 mg/dL 0.64-1.27 [facility] Eosinophils Auto (Bld) [#/Vo l]Ordered By: Robyn Jose on 10-02-2022 Eosinophils (Bld) [#/Vol] 0.2 10*3/uL 0.0-0.45 [facility] Eosinophils/100 WBC Auto (Bl d)Ordered By: Robyn Jose on 10-02-2022 Eosinophils/100 WBC (Bld) 2.7 % . [facility] Erythrocyte distribution wid th Auto (RBC) [Ratio]Ordered By: Robyn Jose on 10-02-2022 Erythrocyte distribution width (RBC) [Ratio] 13.2 % 12.0-14.8 [facility] Estimated glomerular filtrat ion rate (GFR) non- AmericanOrdered By: Robyn Jose on 10-02-2022 GFR/1.73 sq M.predicted among non-blacks MDRD (S/P/Bld) [Vol rate/Area] 16 mL/Min [facility] Hematocrit Auto (Bld) [Volum e fraction]Ordered By: Robyn Jose on 10-02-2022 Hematocrit (Bld) [Volume fraction] 23.8 % 38.8-50.0 [facility] Hemoglobin [Mass/volume] in BloodOrdered By: Robyn Jose on 10-02-2022 Hemoglobin (Bld) [Mass/Vol] 8.3 g/dL 13.0-17.0 [facility] Laboratory - Chemistry and C hemistry - challengeOrdered By: Robyn Jose on 10-02-2022 Natriuretic peptide B (Bld) [Mass/Vol] 381.0 pg/mL 5-100 [facility] Laboratory - CoagulationOrde red By: Robyn Jose on 10-02-2022 PT Coag (PPP) [Time] 12.1 s 9.0-12.9 [facility] Leukocytes [#/volume] correc celena for nucleated erythrocytes in Blood by Automated counOrdered By: Robyn Jose on 10-02-2022 WBC corrected for nucl RBC Auto (Bld) [#/Vol] 7.2 10*3/uL 4.1-10.5 [facility] Lymphocytes Auto (Bld) [#/Vo l]Ordered By: Robyn Jose on 10-02-2022 Lymphocytes (Bld) [#/Vol] 1.4 10*3/uL 1.00-4.8 [facility] Lymphocytes/100 WBC Auto (Bl d)Ordered By: Robyn Jose on 10-02-2022 Lymphocytes/100 WBC (Bld) 19.9 % . [facility] MCH Auto (RBC) [Entitic mass ]Ordered By: Robyn Jose on 10-02-2022 MCH (RBC) [Entitic mass] 30.4 pg 27.5-35.2 [facility] MCHC Auto (RBC) [Mass/Vol]Or dered By: Robyn Jose on 10-02-2022 MCHC (RBC) [Mass/Vol] 34.9 g/dL 32.5-35.6 [facility] MCV Auto (RBC) [Entitic vol] Ordered By: Robyn Jose on 10-02-2022 MCV (RBC) [Entitic vol] 87.1 fL 83.5-101 [facility] Monocyte distribution width [Entitic volume] in Blood by AutomatedOrdered By: Robyn Jose on 10-02-2022 Monocyte distribution width Auto (Bld) [Entitic vol] 14.39 % 0.00-20.00 [facility] Monocytes Auto (Bld) [#/Vol] Ordered By: Robyn Jose on 10-02-2022 Monocytes (Bld) [#/Vol] 0.4 10*3/uL 0.0-0.8 [facility] Monocytes/100 WBC Auto (Bld) Ordered By: Robyn Jose on 10-02-2022 Monocytes/100 WBC (Bld) 5.5 % . [facility] Neutrophils Auto (Bld) [#/Vo l]Ordered By: Robyn Jose on 10-02-2022 Neutrophils (Bld) [#/Vol] 5.1 10*3/uL 1.8-7.7 [facility] Neutrophils/100 WBC Auto (Bl d)Ordered By: Robyn Jose on 10-02-2022 Neutrophils/100 WBC (Bld) 70.2 % . [facility] No Panel InformationOrdered By: Robyn Jose on 10-02-2022 Estimated GFR () 20 mL/Min [facility] Comment on above: GFR estimated refere nce range: According to KDOQI guidelines, <60 ml/min/1.73m2 is sufficient to diagnose a patient with chronic kidney disease. Pharmacy Creatinine Clearance (Chem 25.83 [facility] Nucleated erythrocytes [Pres ence] in Blood by Automated countOrdered By: Robyn Jose on 10-02-2022 Nucleated RBC Auto Ql (Bld) 0.0 /100{WBC} 0-0.5 [facility] Platelet mean volume Auto (B ld) [Entitic vol]Ordered By: Robyn Jose on 10-02-2022 Platelet mean volume (Bld) [Entitic vol] 8.2 fL 6.6-10.1 [facility] Platelet poor plasma interna tional normalized ratio (INR) by coagulation assay (relatOrdered By: Robyn Jose on 10-02-2022 INR Coag (PPP) [Relative time] 1.0 {INR} [facility] Comment on above: INR Therapeutic Rang [...] Platelets Auto (Bld) [#/Vol] Ordered By: Robyn Jose on 10-02-2022 Platelets (Bld) [#/Vol] 185 10*3/uL 150-450 [facility] RBC Auto (Bld) [#/Vol]Ordere d By: Robyn Jose on 10-02-2022 RBC (Bld) [#/Vol] 2.74 10*6/uL 3.90-5.60 [facility] Serum or plasma anion gap de terminationOrdered By: Robyn Jose on 10-02-2022 Anion gap [Moles/Vol] 15.1 mmol/L 6.0-15.0 [facility] Serum or plasma calcium farida urement (mass/volume)Ordered By: Robyn Jose on 10-02-2022 Calcium [Mass/Vol] 8.2 mg/dL 8.2-10.2 [facility] Serum or plasma chloride trina surement (moles/volume)Ordered By: Robyn Jose on 10-02-2022 Chloride [Moles/Vol] 103 mmol/L 95-114 [facility] Serum or plasma glucose farida urement (mass/volume)Ordered By: Robyn Jose on 10-02-2022 Glucose [Mass/Vol] 223 mg/dL 70-100 [facility] Comment on above: ADA recommended refe rence rangeRandom Glucose Reference Range is dependent on time and content of last meal. Glucose of more than 200 mg/dL in a nonstressed, ambulatory subject supports the diagnosis of Diabetes Mellitus. Serum or plasma potassium me asurement (moles/volume)Ordered By: Robyn Jose on 10-02-2022 Potassium [Moles/Vol] 4.4 mmol/L 3.5-5.1 [facility] Serum or plasma sodium measu rement (moles/volume)Ordered By: Robyn Jose on 10-02-2022 Sodium [Moles/Vol] 135 mmol/L 136-146 [facility] Serum or plasma total carbon dioxide measurement (moles/volume)Ordered By: Robyn Jose on 10-02-2022 CO2 [Moles/Vol] 21.3 mmol/L 22.0-30.0 [place] Serum or plasma urea nitroge n measurement (mass/volume)Ordered By: Robyn Jose on 10-02-2022 Urea nitrogen [Mass/Vol] 54 mg/dL 05-11 [facility] WBC Auto (Bld) [#/Vol]Ordere d By: Robyn Jose on 10-02-2022 WBC (Bld) [#/Vol] 7.2 10*3/uL 4.1-10.5 [facility] Glucose Glucometer (BldC) [M ass/Vol]Ordered By: Romain Mendoza on 09-17-2022 Glucose [Mass/Vol] 178 mg/dL [facility] Comment on above: Random Glucose Refer ence Range is dependent on time and content of last meal. Glucose of more than 200 mg/dL in a nonstressed, ambulatory subject supports the diagnosis of Diabetes Mellitus. No Panel InformationOrdered By: Romain Mendoza on 09-17-2022 Bedside Glucose Comment Glu2: cleaned meter [facility] Serum or plasma potassium me asurement (moles/volume)Ordered By: Romain Mendoza on 09-17-2022 Potassium [Moles/Vol] 4.4 mmol/L 3.5-5.1 [facility] Basophils Auto (Bld) [#/Vol] Ordered By: Romain Mendoza on 09-10-2022 Basophils (Bld) [#/Vol] 0.1 10*3/uL 0.0-0.2 [facility] Basophils/100 WBC Auto (Bld) Ordered By: Romain Mendoza on 09-10-2022 Basophils/100 WBC (Bld) 1.4 % . [facility] Creatinine and Glomerular fi ltration rate.predicted panel (S/P/Bld)Ordered By: Romain Mendoza on 09-10-2022 Creatinine [Mass/Vol] 3.72 mg/dL 0.64-1.27 [facility] Eosinophils Auto (Bld) [#/Vo l]Ordered By: Romain Mendoza on 09-10-2022 Eosinophils (Bld) [#/Vol] 0.1 10*3/uL 0.0-0.45 [facility] Eosinophils/100 WBC Auto (Bl d)Ordered By: Romain Mendoza on 09-10-2022 Eosinophils/100 WBC (Bld) 2.1 % . [facility] Erythrocyte distribution wid th Auto (RBC) [Ratio]Ordered By: Romain Mendoza on 09-10-2022 Erythrocyte distribution width (RBC) [Ratio] 13.5 % 12.0-14.8 [facility] Estimated glomerular filtrat ion rate (GFR) non- AmericanOrdered By: Romain Mendoza on 09-10-2022 GFR/1.73 sq M.predicted among non-blacks MDRD (S/P/Bld) [Vol rate/Area] 18 mL/Min [facility] Hematocrit Auto (Bld) [Volum e fraction]Ordered By: Romain Mendoza on 09-10-2022 Hematocrit (Bld) [Volume fraction] 24.2 % 38.8-50.0 [facility] Hemoglobin [Mass/volume] in BloodOrdered By: Romain Mendoza on 09-10-2022 Hemoglobin (Bld) [Mass/Vol] 8.3 g/dL 13.0-17.0 [facility] Leukocytes [#/volume] correc celena for nucleated erythrocytes in Blood by Automated counOrdered By: Romain Mendoza on 09-10-2022 WBC corrected for nucl RBC Auto (Bld) [#/Vol] 6.7 10*3/uL 4.1-10.5 [facility] Lymphocytes Auto (Bld) [#/Vo l]Ordered By: Romain Mendoza on 09-10-2022 Lymphocytes (Bld) [#/Vol] 1.5 10*3/uL 1.00-4.8 [facility] Lymphocytes/100 WBC Auto (Bl d)Ordered By: Romain Mendoza on 09-10-2022 Lymphocytes/100 WBC (Bld) 22.2 % . [facility] MCH Auto (RBC) [Entitic mass ]Ordered By: Romain Mendoza on 09-10-2022 MCH (RBC) [Entitic mass] 29.8 pg 27.5-35.2 [facility] MCHC Auto (RBC) [Mass/Vol]Or dered By: Romain Mendoza on 09-10-2022 MCHC (RBC) [Mass/Vol] 34.4 g/dL 32.5-35.6 [facility] MCV Auto (RBC) [Entitic vol] Ordered By: Romain Mendoza on 09-10-2022 MCV (RBC) [Entitic vol] 86.7 fL 83.5-101 [facility] Monocytes Auto (Bld) [#/Vol] Ordered By: Romain Mendoza on 09-10-2022 Monocytes (Bld) [#/Vol] 0.4 10*3/uL 0.0-0.8 [facility] Monocytes/100 WBC Auto (Bld) Ordered By: Romain Mendoza on 09-10-2022 Monocytes/100 WBC (Bld) 5.5 % . [facility] Neutrophils Auto (Bld) [#/Vo l]Ordered By: Romain Mendoza on 09-10-2022 Neutrophils (Bld) [#/Vol] 4.6 10*3/uL 1.8-7.7 [facility] Neutrophils/100 WBC Auto (Bl d)Ordered By: Romain Mendoza on 09-10-2022 Neutrophils/100 WBC (Bld) 68.8 % . [facility] No Panel InformationOrdered By: Romain Mendoza on 09-10-2022 Estimated GFR () 22 mL/Min [facility] Comment on above: GFR estimated refere nce range: According to KDOQI guidelines, <60 ml/min/1.73m2 is sufficient to diagnose a patient with chronic kidney disease. Pharmacy Creatinine Clearance (Chem N/A [facility] Nucleated erythrocytes [Pres ence] in Blood by Automated countOrdered By: Romain Mendoza on 09-10-2022 Nucleated RBC Auto Ql (Bld) 0.1 /100{WBC} 0-0.5 [facility] Platelet mean volume Auto (B ld) [Entitic vol]Ordered By: Romain Mendoza on 09-10-2022 Platelet mean volume (Bld) [Entitic vol] 8.4 fL 6.6-10.1 [facility] Platelets Auto (Bld) [#/Vol] Ordered By: Romain Mendoza on 09-10-2022 Platelets (Bld) [#/Vol] 187 10*3/uL 150-450 [facility] RBC Auto (Bld) [#/Vol]Ordere d By: Romain Mendoza on 09-10-2022 RBC (Bld) [#/Vol] 2.79 10*6/uL 3.90-5.60 [facility] Serum or plasma anion gap de terminationOrdered By: Romain Mendoza on 09-10-2022 Anion gap [Moles/Vol] 11.9 mmol/L 6.0-15.0 [facility] Serum or plasma calcium farida urement (mass/volume)Ordered By: Romain Mendoza on 09-10-2022 Calcium [Mass/Vol] 8.1 mg/dL 8.2-10.2 [facility] Serum or plasma chloride trina surement (moles/volume)Ordered By: Romain Mendoza on 09-10-2022 Chloride [Moles/Vol] 105 mmol/L 95-114 [facility] Serum or plasma glucose farida urement (mass/volume)Ordered By: Romain Mendoza on 09-10-2022 Glucose [Mass/Vol] 168 mg/dL 70-100 [facility] Comment on above: ADA recommended refe rence rangeRandom Glucose Reference Range is dependent on time and content of last meal. Glucose of more than 200 mg/dL in a nonstressed, ambulatory subject supports the diagnosis of Diabetes Mellitus. Serum or plasma potassium me asurement (moles/volume)Ordered By: Romain Mendoza on 09-10-2022 Potassium [Moles/Vol] 4.3 mmol/L 3.5-5.1 [facility] Serum or plasma sodium measu rement (moles/volume)Ordered By: Romain Mendoza on 09-10-2022 Sodium [Moles/Vol] 135 mmol/L 136-146 [facility] Serum or plasma total carbon dioxide measurement (moles/volume)Ordered By: Romain Mendoza on 09-10-2022 CO2 [Moles/Vol] 22.4 mmol/L 22.0-30.0 [place] Serum or plasma urea nitroge n measurement (mass/volume)Ordered By: Romain Mendoza on 09-10-2022 Urea nitrogen [Mass/Vol] 48 mg/dL 05-11 [facility] WBC Auto (Bld) [#/Vol]Ordere d By: Romain Mendoza on 09-10-2022 WBC (Bld) [#/Vol] 6.7 10*3/uL 4.1-10.5 [facility] Albumin [Mass/volume] in Ser um or PlasmaOrdered By: Jorje Small on 09-01-2022 Albumin [Mass/Vol] 2.9 g/dL 2.9-4.4 [facility] Automated erythrocytes count in urine sediment (number/area)Ordered By: Robyn Guerin on 09-01-2022 RBC Auto (Urine sed) [#/Area] 5-9 [HPF] 0-4 [facility] Automated leukocytes count i n urine sediment (number/area)Ordered By: Robyn Guerin on 09-01-2022 WBC Auto (Urine sed) [#/Area] 5-9 [HPF] 0-4 [facility] Automated urine hyaline cast s count (number/volume)Ordered By: Robyn Guerin on 09-01-2022 Hyaline casts Auto (U) [#/Vol] 0-8 [LPF] 0-1 [facility] Basophils Auto (Bld) [#/Vol] Ordered By: Jorje Small on 09-01-2022 Basophils (Bld) [#/Vol] 0.1 10*3/uL 0.0-0.2 [facility] Basophils/100 WBC Auto (Bld) Ordered By: Jorje Small on 09-01-2022 Basophils/100 WBC (Bld) 1.7 % . [facility] Bilirubin Test strip Ql (U)O rdered By: Robyn Guerin on 09-01-2022 Bilirubin Ql (U) Negative Negative [place] Casts typing in urine sedime nt by light microscopyOrdered By: Robyn Guerin on 09-01-2022 Casts LM Nom (Urine sed) None seen [LPF] None Seen [facility] Color Auto (U)Ordered By: Kapil Guerin on 09-01-2022 Color (U) Yellow Yellow [facility] Eosinophils Auto (Bld) [#/Vo l]Ordered By: Jorje Small on 09-01-2022 Eosinophils (Bld) [#/Vol] 0.1 10*3/uL 0.0-0.45 [facility] Eosinophils/100 WBC Auto (Bl d)Ordered By: Jorje Small on 09-01-2022 Eosinophils/100 WBC (Bld) 2.3 % . [facility] Erythrocyte distribution wid th Auto (RBC) [Ratio]Ordered By: Jorje Small on 09-01-2022 Erythrocyte distribution width (RBC) [Ratio] 13.2 % 12.0-14.8 [facility] Fine granular cast count in urine sediment by microscopy (number/low power field )Ordered By: Robyn Guerin on 09-01-2022 Fine Granular Casts LM.LPF (Urine sed) [#/Area] 3-4 [LPF] 0-1 [facility] Hematocrit Auto (Bld) [Volum e fraction]Ordered By: Jorje Small on 09-01-2022 Hematocrit (Bld) [Volume fraction] 27.2 % 38.8-50.0 [facility] Hemoglobin [Mass/volume] in BloodOrdered By: Jorje Small on 09-01-2022 Hemoglobin (Bld) [Mass/Vol] 9.5 g/dL 13.0-17.0 [facility] IgA [Mass/volume] in Serum o r PlasmaOrdered By: Jorje Small on 09-01-2022 IgA [Mass/Vol] 314 mg/dL 90-386 [facility] IgG [Mass/volume] in Serum o r PlasmaOrdered By: Jorje Small on 09-01-2022 IgG [Mass/Vol] 1043 mg/dL 603-1613 [facility] IgM [Mass/volume] in Serum o r PlasmaOrdered By: Jorje Small on 09-01-2022 IgM [Mass/Vol] 189 mg/dL 20-172 [facility] Comment on above: Performed at: [address] [id number] Director: Pablito Alexander PhD, Phone: [phone] Immunoglobulin light chains. kappa.free [Mass/volume] in SerumOrdered By: Jorje Small on 09-01-2022 Immunoglobulin light chains.kappa.free (S) [Mass/Vol] 128.0 mg/L 3.3-19.4 [facility] Immunoglobulin light chains. kappa.free/Immunoglobulin light chains.lambda.free [MassOrdered By: Jorje Small on 09-01-2022 Immunoglobulin light chains.kappa.free/Immun oglobulin light chains.lambda.free (S) [Mass ratio] 1.65 0.26-1.65 [facility] Comment on above: Performed at: [address] Director: Pablito Alexander PhD, Phone: [phone] Immunoglobulin light chains. lambda.free [Mass/volume] in Serum or PlasmaOrdered By: Jorje Small on 09-01-2022 Immunoglobulin light chains.lambda.free [Mass/Vol] 77.5 mg/L 5.7-26.3 [facility] Ketones Auto test strip (U) [Mass/Vol]Ordered By: Robyn Guerin on 09-01-2022 Ketones (U) [Mass/Vol] Negative Negative [facility] Leukocytes [#/volume] correc celena for nucleated erythrocytes in Blood by Automated counOrdered By: Jorje Small on 09-01-2022 WBC corrected for nucl RBC Auto (Bld) [#/Vol] 6.2 10*3/uL 4.1-10.5 [facility] Lymphocytes Auto (Bld) [#/Vo l]Ordered By: Jorje Small on 09-01-2022 Lymphocytes (Bld) [#/Vol] 1.3 10*3/uL 1.00-4.8 [facility] Lymphocytes/100 WBC Auto (Bl d)Ordered By: Jorje Small on 09-01-2022 Lymphocytes/100 WBC (Bld) 20.4 % . [facility] MCH Auto (RBC) [Entitic mass ]Ordered By: Jorje Small on 09-01-2022 MCH (RBC) [Entitic mass] 30.1 pg 27.5-35.2 [facility] MCHC Auto (RBC) [Mass/Vol]Or dered By: Jorje Small on 09-01-2022 MCHC (RBC) [Mass/Vol] 34.9 g/dL 32.5-35.6 [facility] MCV Auto (RBC) [Entitic vol] Ordered By: Jorje Small on 09-01-2022 MCV (RBC) [Entitic vol] 86.2 fL 83.5-101 [facility] Monocytes Auto (Bld) [#/Vol] Ordered By: Jorje Small on 09-01-2022 Monocytes (Bld) [#/Vol] 0.3 10*3/uL 0.0-0.8 [facility] Monocytes/100 WBC Auto (Bld) Ordered By: Jorje Small on 09-01-2022 Monocytes/100 WBC (Bld) 5.5 % . [facility] Neutrophils Auto (Bld) [#/Vo l]Ordered By: Jorje Small on 09-01-2022 Neutrophils (Bld) [#/Vol] 4.3 10*3/uL 1.8-7.7 [facility] Neutrophils/100 WBC Auto (Bl d)Ordered By: Jorje Small on 09-01-2022 Neutrophils/100 WBC (Bld) 70.1 % . [facility] Nitrite Test strip Ql (U)Ord ered By: Robyn Guerin on 09-01-2022 Nitrite Ql (U) Negative Negative [facility] No Panel InformationOrdered By: Robyn Guerin on 09-01-2022 Miscellaneous Test See comment [facility] Comment on above: See report. Scanned copy available in EMR. No Panel InformationOrdered By: Jorje Small on 09-01-2022 Protein Electrophoresis [place] Not observed g/dL Not Observed [facility] Protein Electrophoresis Note See comment . [facility] Comment on above: Protein electrophore sis scan will follow via computer,mail, or audiovisual tech delivery.Performed at: [address] [id number] Director: Pablito Alexander PhD, Phone: [phone] Serum Immunofixation Comment: . [facility] Comment on above: Presence of monoclon al protein is unclear at this time. Suggestrepeat in 3 to 6 months if clinically indicated. Nucleated erythrocytes [Pres ence] in Blood by Automated countOrdered By: Jorje Small on 09-01-2022 Nucleated RBC Auto Ql (Bld) 0.2 /100{WBC} 0-0.5 [facility] Platelet mean volume Auto (B ld) [Entitic vol]Ordered By: Jorje Small on 09-01-2022 Platelet mean volume (Bld) [Entitic vol] 8.3 fL 6.6-10.1 [facility] Platelets Auto (Bld) [#/Vol] Ordered By: Jorje Small on 09-01-2022 Platelets (Bld) [#/Vol] 217 10*3/uL 150-450 [facility] Protein Auto test strip (U) [Mass/Vol]Ordered By: Robyn Guerin on 09-01-2022 Protein (U) [Mass/Vol] mg/dL Negative Fi [facility] Protein [Mass/volume] in Ser um or PlasmaOrdered By: Jorje Small on 09-01-2022 Protein [Mass/Vol] 5.9 g/dL 6.0-8.5 [facility] RBC Auto (Bld) [#/Vol]Ordere d By: Jorje Small on 09-01-2022 RBC (Bld) [#/Vol] 3.16 10*6/uL 3.90-5.60 [facility] Serum globulin measurement ( mass/volume)Ordered By: Jorje Small on 09-01-2022 Globulin (S) [Mass/Vol] 3.0 g/dL 2.2-3.9 [facility] Serum or plasma albumin/glob ulin mass ratioOrdered By: Jorje Small on 09-01-2022 Albumin/Globulin [Mass ratio] 1.0 {ratio} 0.7-1.7 [facility] Serum or plasma alpha 1 glob ulin measurement by electrophoresis (mass/volume)Ordered By: Jorje Small on 09-01-2022 Alpha 1 globulin Elph [Mass/Vol] 0.2 g/dL 0.0-0.4 [facility] Serum or plasma alpha 2 glob ulin measurement by electrophoresis (mass/volume)Ordered By: Jorje Small on 09-01-2022 Alpha 2 globulin Elph [Mass/Vol] 0.9 g/dL 0.4-1.0 [facility] Serum or plasma beta globuli n measurement by electrophoresis (mass/volume)Ordered By: Jorje Small on 09-01-2022 Beta globulin Elph [Mass/Vol] 0.8 g/dL 0.7-1.3 [facility] Serum or plasma gamma globul in measurement by electrophoresis (mass/volume)Ordered By: Jorje Small on 09-01-2022 Gamma globulin Elph [Mass/Vol] 1.1 g/dL 0.4-1.8 [facility] Specific gravity Auto test s trip (U) [Rel density]Ordered By: Robyn Guerin on 09-01-2022 Specific gravity (U) [Rel density] 1.016 1.001-1.030 [facility] Squamous epithelial cells de tection in urine sediment by light microscopyOrdered By: Robyn Guerin on 09-01-2022 Epithelial cells.squamous LM Ql (Urine sed) 5-9 [HPF] 0-2 [facility] Urine bacteria detection by automated methodOrdered By: Robyn Guerin on 09-01-2022 Bacteria Auto Ql (U) None seen None Seen [facility] Urine clarity by refractomet ry automatedOrdered By: Robyn Guerin on 09-01-2022 Clarity Refractometry automated (U) Cloudy Clear [facility] Urine glucose measurement by automated test strip (mass/volume)Ordered By: Robyn Guerin on 09-01-2022 Glucose Auto test strip (U) [Mass/Vol] >=1000 mg/dL Normal [facility] Urine hemoglobin detection b y automated test stripOrdered By: Robyn Guerin on 09-01-2022 Hemoglobin Auto test strip Ql (U) Trace Negative [facility] Urine leukocyte esterase det ection by automated test stripOrdered By: Robyn Guerin on 09-01-2022 Leukocyte esterase Auto test strip Ql (U) Negative Negative [facility] Urine microalbumin measureme nt with detection limit of 20 mg/L or less (mass/volume)Ordered By: Robyn Guerin on 09-01-2022 Albumin DL <= 20 mg/L (U) [Mass/Vol] See comment 0.0-1.8 [facility] Comment on above: SENT TO [facility]AL[facility] REPORT Urine sediment renal epithel ial cell count by microscopy (number/high power field)Ordered By: Robyn Guerin on 09-01-2022 Epithelial cells.renal LM.HPF (Urine sed) [#/Area] None seen [HPF] 0-1 [facility] Urobilinogen Auto test strip (U) [Mass/Vol]Ordered By: Robyn Guerin on 09-01-2022 Urobilinogen (U) [Mass/Vol] Normal mg/dL Normal [facility] WBC Auto (Bld) [#/Vol]Ordere d By: Jorje Small on 09-01-2022 WBC (Bld) [#/Vol] 6.2 10*3/uL 4.1-10.5 [facility] pH Auto test strip (U)Ordere d By: Robyn Guerin on 09-01-2022 pH (U) 5.0 [pH] 5.0-9.0 [facility] Albumin [Mass/volume] in Ser um or PlasmaOrdered By: Angel Mejía on 08-17-2022 Albumin [Mass/Vol] 2.6 g/dL 3.2-5.[address] [facility] [address] biopsyOrdered By: Varsha ricardo on 08-17-2022 Transferrin [Mass/Vol] 143 mg/dL 180-380 [facility] Creatinine and Glomerular fi ltration rate.predicted panel (S/P/Bld)Ordered By: Angel Mejía on 08-17-2022 Creatinine [Mass/Vol] 3.58 mg/dL 0.64-1.27 [facility] Erythrocyte distribution wid th Auto (RBC) [Ratio]Ordered By: Angel Mejía on 08-17-2022 Erythrocyte distribution width (RBC) [Ratio] 13.6 % 12.0-14.8 [facility] Estimated glomerular filtrat ion rate (GFR) non- AmericanOrdered By: Angel Mejía on 08-17-2022 GFR/1.73 sq M.predicted among non-blacks MDRD (S/P/Bld) [Vol rate/Area] 19 mL/Min [facility] Ferritin [Mass/volume] in Se rum or PlasmaOrdered By: Angel Mejía on 08-17-2022 Ferritin [Mass/Vol] 135.6 ng/mL 23.9-336.2 [facility] Hematocrit Auto (Bld) [Volum e fraction]Ordered By: Angel Mejía on 08-17-2022 Hematocrit (Bld) [Volume fraction] 28.6 % 38.8-50.0 [facility] Hemoglobin [Mass/volume] in BloodOrdered By: Angel Mejía on 08-17-2022 Hemoglobin (Bld) [Mass/Vol] 10.0 g/dL 13.0-17.0 [facility] Iron [Mass/volume] in Serum or PlasmaOrdered By: Angel Mejía on 08-17-2022 Iron [Mass/Vol] 68 ug/dL 40-160 [facility] Iron binding capacity [Mass/ volume] in Serum or PlasmaOrdered By: Angel Mejía on 08-17-2022 Iron binding capacity [Mass/Vol] 200 ug/dL 255-450 [facility] Iron saturation [Mass Fracti on] in Serum or PlasmaOrdered By: Angel Mejía on 08-17-2022 Iron saturation [Mass fraction] 34.0 % 20-50 [facility] Laboratory - Chemistry and C hemistry - challengeOrdered By: Angel Mejía on 08-17-2022 Magnesium [Mass/Vol] 2.0 mg/dL 1.6-2.6 [facility] Leukocytes [#/volume] correc celena for nucleated erythrocytes in Blood by Automated counOrdered By: Angel Mejía on 08-17-2022 WBC corrected for nucl RBC Auto (Bld) [#/Vol] 10.0 10*3/uL 4.1-10.5 [facility] MCH Auto (RBC) [Entitic mass ]Ordered By: Angel Mejía on 08-17-2022 MCH (RBC) [Entitic mass] 29.8 pg 27.5-35.2 [facility] MCHC Auto (RBC) [Mass/Vol]Or dered By: Angel Mejía on 08-17-2022 MCHC (RBC) [Mass/Vol] 35.0 g/dL 32.5-35.6 [facility] MCV Auto (RBC) [Entitic vol] Ordered By: Angel Cortezdir on 08-17-2022 MCV (RBC) [Entitic vol] 85.3 fL 83.5-101 [facility] No Panel InformationOrdered By: Angel Mejía on 08-17-2022 25-Hydroxy Vitamin D Total 13.1 ng/mL 30-100 [facility] Comment on above: VITAMIN D STATUS 25( [place])VITAMIN D RANGE (ng/mL) Deficient <20 Insufficient 20 to <30Sufficient 30 to 100Reference: Vanna MF,Chemo NC, Sergey SIMENTAL, et al. Evaluation,treatment, and prevention of vitamin D deficiency; an Endocrine Society clinical practice guideline. JCEM. 2010; 96(7):1911-30. Estimated GFR () 23 mL/Min [facility] Comment on above: GFR estimated refere nce range: According to KDOQI guidelines, <60 ml/min/1.73m2 is sufficient to diagnose a patient with chronic kidney disease. Pharmacy Creatinine Clearance (Chem N/A [facility] Phosphate [Mass/volume] in S gretta or PlasmaOrdered By: Angel Mejía on 08-17-2022 Phosphate [Mass/Vol] 5.0 mg/dL 2.5-4.6 [facility] Platelet mean volume Auto (B ld) [Entitic vol]Ordered By: Angel Mejía on 08-17-2022 Platelet mean volume (Bld) [Entitic vol] 8.3 fL 6.6-10.1 [facility] Platelets Auto (Bld) [#/Vol] Ordered By: Angel Joyce on 08-17-2022 Platelets (Bld) [#/Vol] 205 10*3/uL 150-450 [facility] RBC Auto (Bld) [#/Vol]Ordere d By: Angel Joyce on 08-17-2022 RBC (Bld) [#/Vol] 3.35 10*6/uL 3.90-5.60 [facility] Serum or plasma anion gap de terminationOrdered By: Angel Mejía on 08-17-2022 Anion gap [Moles/Vol] 9.9 mmol/L 6.0-15.0 [facility] Serum or plasma calcium farida urement (mass/volume)Ordered By: Angel Mejía on 08-17-2022 Calcium [Mass/Vol] 8.4 mg/dL 8.2-10.2 [facility] Serum or plasma chloride trina surement (moles/volume)Ordered By: Angel Mejía on 08-17-2022 Chloride [Moles/Vol] 107 mmol/L 95-114 [facility] Serum or plasma glucose farida urement (mass/volume)Ordered By: Angel Mejía on 08-17-2022 Glucose [Mass/Vol] 202 mg/dL 70-100 [facility] Comment on above: ADA recommended refe rence rangeRandom Glucose Reference Range is dependent on time and content of last meal. Glucose of more than 200 mg/dL in a nonstressed, ambulatory subject supports the diagnosis of Diabetes Mellitus. Serum or plasma intact parat hyroid hormone measurement (mass/volume)Ordered By: Angel Mejía on 08-17-2022 Parathyrin.intact [Mass/Vol] 253.7 pg/mL [facility] Serum or plasma potassium me asurement (moles/volume)Ordered By: Angel Mejía on 08-17-2022 Potassium [Moles/Vol] 5.0 mmol/L 3.5-5.1 [facility] Serum or plasma sodium measu rement (moles/volume)Ordered By: Angel Mejía on 08-17-2022 Sodium [Moles/Vol] 136 mmol/L 136-146 [facility] Serum or plasma total carbon dioxide measurement (moles/volume)Ordered By: Angel Mejía on 08-17-2022 CO2 [Moles/Vol] 24.1 mmol/L 22.0-30.0 [place] Serum or plasma urea nitroge n measurement (mass/volume)Ordered By: Angel Mejía on 08-17-2022 Urea nitrogen [Mass/Vol] 47 mg/dL 05-11 [facility] Serum or plasma uric acid me asurement (mass/volume)Ordered By: Angel Mejía on 08-17-2022 Urate [Mass/Vol] 6.6 mg/dL 2.6-7.2 [place] Automated erythrocytes count in urine sediment (number/area)Ordered By: Tenzin Ortiz on 08-13-2022 RBC Auto (Urine sed) [#/Area] 10-19 [HPF] 0-4 [facility] Automated leukocytes count i n urine sediment (number/area)Ordered By: Tenzin Ortiz on 08-13-2022 WBC Auto (Urine sed) [#/Area] 1-2 [HPF] 0-4 [facility] Bilirubin Test strip Ql (U)O rdered By: Tenzin Ortiz on 08-13-2022 Bilirubin Ql (U) Negative Negative [place] Color Auto (U)Ordered By: Jose Luis Ortiz on 08-13-2022 Color (U) Yellow Yellow [facility] Glucose Glucometer (BldC) [M ass/Vol]Ordered By: Law Cano on 08-13-2022 Glucose [Mass/Vol] 276 mg/dL [facility] Comment on above: Random Glucose Refer ence Range is dependent on time and content of last meal. Glucose of more than 200 mg/dL in a nonstressed, ambulatory subject supports the diagnosis of Diabetes Mellitus. Ketones Auto test strip (U) [Mass/Vol]Ordered By: Tenzin Ortiz on 08-13-2022 Ketones (U) [Mass/Vol] Negative Negative [facility] Laboratory - Chemistry and C hemistry - challengeOrdered By: Isidoro Mesa on 08-13-2022 Magnesium [Mass/Vol] 1.9 mg/dL 1.6-2.6 [facility] Laboratory - UrinalysisOrder ed By: Tenzin Ortiz on 08-13-2022 Hyaline casts LM Ql (Urine sed) 0-8 [LPF] 0-8 [facility] Nitrite Test strip Ql (U)Ord ered By: Tenzin Ortiz on 08-13-2022 Nitrite Ql (U) Negative Negative [facility] Protein Auto test strip (U) [Mass/Vol]Ordered By: Tenzin Ortiz on 08-13-2022 Protein (U) [Mass/Vol] 300 mg/dL Negative [facility] Specific gravity Auto test s trip (U) [Rel density]Ordered By: Tenzin Ortiz on 08-13-2022 Specific gravity (U) [Rel density] 1.011 1.001-1.030 [facility] Squamous epithelial cells de tection in urine sediment by light microscopyOrdered By: Tenzin Ortiz on 08-13-2022 Epithelial cells.squamous LM Ql (Urine sed) 0-1 [HPF] 0-2 [facility] Troponin I.cardiac [Mass/vol ume] in Serum or Plasma by High sensitivity methodOrdered By: Isidoro Mesa on 08-13-2022 Troponin I.cardiac High sensitivity method [Mass/Vol] 31 pg/mL 0-20 [facility] Urine bacteria detection by automated methodOrdered By: Tenzin Ortiz on 08-13-2022 Bacteria Auto Ql (U) None seen None Seen [facility] Urine clarity by refractomet ry automatedOrdered By: Tenzin Ortiz on 08-13-2022 Clarity Refractometry automated (U) Clear Clear [facility] Urine glucose measurement by automated test strip (mass/volume)Ordered By: Tenzin Ortiz on 08-13-2022 Glucose Auto test strip (U) [Mass/Vol] 250 mg/dL Normal [facility] Urine hemoglobin detection b y automated test stripOrdered By: Tenzin Ortiz on 08-13-2022 Hemoglobin Auto test strip Ql (U) 1+ Negative [facility] Urine leukocyte esterase det ection by automated test stripOrdered By: Tenzin Ortiz on 08-13-2022 Leukocyte esterase Auto test strip Ql (U) Negative Negative [facility] Urobilinogen Auto test strip (U) [Mass/Vol]Ordered By: Tenzin Ortiz on 08-13-2022 Urobilinogen (U) [Mass/Vol] Normal mg/dL Normal [facility] pH Auto test strip (U)Ordere d By: Tenzin Ortiz on 08-13-2022 pH (U) 5.5 [pH] 5.0-9.0 [facility] Activated partial thrombopla stin time (aPTT) in platelet poor plasma by coagulation aOrdered By: Tenzin Ortiz on 08-12-2022 aPTT Coag (PPP) [Time] 36.3 s 25.1-36.5 [facility] Albumin [Mass/volume] in Ser um or PlasmaOrdered By: Tenzin Ortiz on 08-12-2022 Albumin [Mass/Vol] 2.4 g/dL 3.2-5.5 [facility] Basophils Auto (Bld) [#/Vol] Ordered By: Tenzin Ortiz on 08-12-2022 Basophils (Bld) [#/Vol] 0.1 10*3/uL 0.0-0.2 [facility] Basophils/100 WBC Auto (Bld) Ordered By: Tenzin Ortiz on 08-12-2022 Basophils/100 WBC (Bld) 1.5 % . F [facility] Creatine kinase [Enzymatic a ctivity/volume] in Serum or PlasmaOrdered By: Tenzin Ortiz on 08-12-2022 CK [Catalytic activity/Vol] 236 U/L 22-269 [facility] Creatinine and Glomerular fi ltration rate.predicted panel (S/P/Bld)Ordered By: Tenzin Ortiz on 08-12-2022 Creatinine [Mass/Vol] 3.85 mg/dL 0.64-1.27 [facility] Eosinophils Auto (Bld) [#/Vo l]Ordered By: Tenzin Ortiz on 08-12-2022 Eosinophils (Bld) [#/Vol] 0.1 10*3/uL 0.0-0.45 [facility] Eosinophils/100 WBC Auto (Bl d)Ordered By: Tenzin Ortiz on 08-12-2022 Eosinophils/100 WBC (Bld) 2.7 % . [facility] Erythrocyte distribution wid th Auto (RBC) [Ratio]Ordered By: Tenzin Ortiz on 08-12-2022 Erythrocyte distribution width (RBC) [Ratio] 13.6 % 12.0-14.8 [facility] Estimated glomerular filtrat ion rate (GFR) non- AmericanOrdered By: Tenzin Ortiz on 08-12-2022 GFR/1.73 sq M.predicted among non-blacks MDRD (S/P/Bld) [Vol rate/Area] 18 mL/Min [facility] Globulin Calc (S) [Mass/Vol] Ordered By: Tenzin Ortiz on 08-12-2022 Globulin (S) [Mass/Vol] 2.8 g/dL [facility] Hematocrit Auto (Bld) [Volum e fraction]Ordered By: Tenzin Ortiz on 08-12-2022 Hematocrit (Bld) [Volume fraction] 23.4 % 38.8-50.0 [facility] Hemoglobin [Mass/volume] in BloodOrdered By: Tenzin Ortiz on 08-12-2022 Hemoglobin (Bld) [Mass/Vol] 8.3 g/dL 13.0-17.0 [facility] Laboratory - CoagulationOrde red By: Tenzin Ortiz on 08-12-2022 PT Coag (PPP) [Time] 12.0 s 9.0-12.9 [facility] Leukocytes [#/volume] correc celena for nucleated erythrocytes in Blood by Automated counOrdered By: Tenzin Ortiz on 08-12-2022 WBC corrected for nucl RBC Auto (Bld) [#/Vol] 5.4 10*3/uL 4.1-10.5 [facility] Lymphocytes Auto (Bld) [#/Vo l]Ordered By: Tenzin Ortiz on 08-12-2022 Lymphocytes (Bld) [#/Vol] 1.6 10*3/uL 1.00-4.8 [facility] Lymphocytes/100 WBC Auto (Bl d)Ordered By: Tenzin Ortiz on 08-12-2022 Lymphocytes/100 WBC (Bld) 29.2 % . [facility] MCH Auto (RBC) [Entitic mass ]Ordered By: Tenzin Otriz on 08-12-2022 MCH (RBC) [Entitic mass] 30.1 pg 27.5-35.2 [facility] MCHC Auto (RBC) [Mass/Vol]Or dered By: Tenzin Ortiz on 08-12-2022 MCHC (RBC) [Mass/Vol] 35.4 g/dL 32.5-35.6 [facility] MCV Auto (RBC) [Entitic vol] Ordered By: Tenzin Ortiz on 08-12-2022 MCV (RBC) [Entitic vol] 85.1 fL 83.5-101 [facility] Monocyte distribution width [Entitic volume] in Blood by AutomatedOrdered By: Tenzin Ortiz on 08-12-2022 Monocyte distribution width Auto (Bld) [Entitic vol] 17.67 % 0.00-20.00 [facility] Monocytes Auto (Bld) [#/Vol] Ordered By: Tenzin Ortiz on 08-12-2022 Monocytes (Bld) [#/Vol] 0.5 10*3/uL 0.0-0.8 [facility] Monocytes/100 WBC Auto (Bld) Ordered By: Tenzin Ortiz on 08-12-2022 Monocytes/100 WBC (Bld) 8.9 % . [facility] Neutrophils Auto (Bld) [#/Vo l]Ordered By: Tenzin Ortiz on 08-12-2022 Neutrophils (Bld) [#/Vol] 3.1 10*3/uL 1.8-7.7 [facility] Neutrophils/100 WBC Auto (Bl d)Ordered By: Tenzin Ortiz on 08-12-2022 Neutrophils/100 WBC (Bld) 57.7 % . [facility] No Panel InformationOrdered By: Tenzin Ortiz on 08-12-2022 Estimated GFR () 21 mL/Min [facility] Comment on above: GFR estimated refere nce range: According to KDOQI guidelines, <60 ml/min/1.73m2 is sufficient to diagnose a patient with chronic kidney disease. Pharmacy Creatinine Clearance (Chem 28.24 [facility] Nucleated erythrocytes [Pres ence] in Blood by Automated countOrdered By: Tenzin Ortiz on 08-12-2022 Nucleated RBC Auto Ql (Bld) 0.1 /100{WBC} 0-0.5 [facility] Platelet mean volume Auto (B ld) [Entitic vol]Ordered By: Tenzin Ortiz on 08-12-2022 Platelet mean volume (Bld) [Entitic vol] 7.9 fL 6.6-10.1 [facility] Platelet poor plasma interna tional normalized ratio (INR) by coagulation assay (relatOrdered By: Tenzin Ortiz on 08-12-2022 INR Coag (PPP) [Relative time] 1.1 {INR} [facility] Comment on above: INR Therapeutic Rang [...] 08-12-2022 Platelets (Bld) [#/Vol] 148 10*3/uL 150-450 [facility] Protein [Mass/volume] in Ser um or PlasmaOrdered By: Tenzin Ortiz on 08-12-2022 Protein [Mass/Vol] 5.2 g/dL 6.1-7.9 [facility] RBC Auto (Bld) [#/Vol]Ordere d By: Tenzin Ortiz on 08-12-2022 RBC (Bld) [#/Vol] 2.74 10*6/uL 3.90-5.60 [facility] Serum or plasma alanine matthews otransferase measurement without P-5'-P (enzymatic activiOrdered By: Tenzin Ortiz on 08-12-2022 ALT No additional P-5'-P [Catalytic activity/Vol] 11 U/L [facility] Serum or plasma albumin/glob ulin mass ratioOrdered By: Tenzin Ortiz on 08-12-2022 Albumin/Globulin [Mass ratio] 0.9 {ratio} [facility] Serum or plasma alkaline harriett sphatase measurement (enzymatic activity/volume)Ordered By: Tenzin Ortiz on 08-12-2022 ALP [Catalytic activity/Vol] 68 U/L 32-92 [facility] Serum or plasma anion gap de terminationOrdered By: Tenzin Ortiz on 08-12-2022 Anion gap [Moles/Vol] 12.3 mmol/L 6.0-15.0 [facility] Serum or plasma aspartate am inotransferase measurement (enzymatic activity/volume)Ordered By: Tenzin Ortiz on 08-12-2022 AST [Catalytic activity/Vol] 12 U/L 1042 [facility] Serum or plasma calcium farida urement (mass/volume)Ordered By: Tenzin Ortiz on 08-12-2022 Calcium [Mass/Vol] 7.7 mg/dL 8.2-10.2 [facility] Serum or plasma chloride trina surement (moles/volume)Ordered By: Tenzin Ortiz on 08-12-2022 Chloride [Moles/Vol] 107 mmol/L 95-114 [facility] Serum or plasma creatine kin ase MB (CKMB)/total creatine kinase (CK) ratio by calculaOrdered By: Tenzin Ortiz on 08-12-2022 CK.MB Calc [Catalytic fraction] 2.7 % 0.00-2.50 [facility] Serum or plasma creatine kin ase MB measurement (mass/volume)Ordered By: Tenzin Ortiz on 08-12-2022 CK.MB [Mass/Vol] 6.6 ng/mL 0.6-6.3 [place] Serum or plasma glucose farida urement (mass/volume)Ordered By: Tenzin Ortiz on 08-12-2022 Glucose [Mass/Vol] 198 mg/dL 70-100 [facility] Comment on above: ADA recommended refe rence rangeRandom Glucose Reference Range is dependent on time and content of last meal. Glucose of more than 200 mg/dL in a nonstressed, ambulatory subject supports the diagnosis of Diabetes Mellitus. Serum or plasma potassium me asurement (moles/volume)Ordered By: Tenzin Ortiz on 08-12-2022 Potassium [Moles/Vol] 4.2 mmol/L 3.5-5.1 [facility] Serum or plasma sodium measu rement (moles/volume)Ordered By: Tenzin Ortiz on 08-12-2022 Sodium [Moles/Vol] 136 mmol/L 136-146 [facility] Serum or plasma total biliru bin measurement (mass/volume)Ordered By: Tenzin Ortiz on 08-12-2022 Bilirubin [Mass/Vol] 0.4 mg/dL 0.3-1.2 [facility] Serum or plasma total carbon dioxide measurement (moles/volume)Ordered By: Tenzin Ortiz on 08-12-2022 CO2 [Moles/Vol] 20.9 mmol/L 22.0-30.0 [place] Serum or plasma urea nitroge n measurement (mass/volume)Ordered By: Tenzin Ortiz on 08-12-2022 Urea nitrogen [Mass/Vol] 45 mg/dL 9-23 [facility] Troponin I.cardiac [Mass/vol ume] in Serum or Plasma by High sensitivity methodOrdered By: Tenzin Ortiz on 08-12-2022 Troponin I.cardiac High sensitivity method [Mass/Vol] 24 pg/mL 0-20 [facility] WBC Auto (Bld) [#/Vol]Ordere d By: Tenzin Ortiz on 08-12-2022 WBC (Bld) [#/Vol] 5.4 10*3/uL 4.1-10.5 [facility] CNPNon 08-02-2022 CNPN Telephone (TXCTGL) -------- YOEL WERNER ([id number]) 1985 M Date Time Provider Department 08/02/22 NAUN WILLIS TXCTGL During your visit today, we recorded the following information about you: Naun Willis 08/02/2022 10:42 AM Signed Returned call to patient regarding kidney transplant, he is currently smoking cigarettes about 1/2 pack per day. Advised patient once he is nicotine free for 30-days to contact our office. Closing referral at this time and patient verbalized understanding. Naun Willis Allergies As of Date: 08/02/2022 (No Known Allergies) Date Reviewed: 10/02/2021 Reviewed by: Zita Allen MD - Fully Assessed Reason for [...] Of Date: 08/02/2022 (None) Encounter Status:Closed by NAUN WILLIS on 08/02/22 Normal [facility] Albumin [Mass/volume] in Ser um or PlasmaOrdered By: Cipriano Stiles on 07-19-2022 Albumin [Mass/Vol] 2.6 g/dL 3.2-5.5 [facility] C reactive protein [Mass/vol ume] in Serum or Plasma by High sensitivity methodOrdered By: Denilson Gomez on 07-19-2022 CRP High sensitivity method [Mass/Vol] 0.7 mg/L [facility] Comment on above: Cardiovascular Risk Classification [...] on 07-19-2022 Cholesterol [Mass/Vol] 164 mg/dL 140-200 [facility] Comment on above: Chol less than 200 m g/dl low riskChol 201-239 mg/dl borderline riskChol 240 mg/dl and greater high risk Cholesterol in LDL Calc [Mas s/Vol]Ordered By: Denilson Gomez on 07-19-2022 Cholesterol in LDL [Mass/Vol] 111 mg/dL 0-100 [facility] Comment on above: LDL ATP III CLASSIFI CATIONLDL less than 100 mg/dL OptimalLDL 100-129 mg/dL Near or above optimalLDL 130-159 mg/dL Borderline highLDL 160-189 mg/dL HighLDL greater than 189 mg/dL Very high Cholesterol in VLDL Calc [Ma ss/Vol]Ordered By: Denilson Gomez on 07-19-2022 Cholesterol in VLDL [Mass/Vol] 16 mg/dL [facility] Creatinine [Mass/volume] in UrineOrdered By: Cipriano Stiles on 07-19-2022 Creatinine (U) [Mass/Vol] 76.5 mg/dL [facility] Comment on above: No reference range e stablished Creatinine and Glomerular fi ltration rate.predicted panel (S/P/Bld)Ordered By: Cipriano Stiles on 07-19-2022 Creatinine [Mass/Vol] 3.21 mg/dL 0.64-1.27 [facility] Estimated glomerular filtrat ion rate (GFR) non- AmericanOrdered By: Cipriano Stiles on 07-19-2022 GFR/1.73 sq M.predicted among non-blacks MDRD (S/P/Bld) [Vol rate/Area] 22 mL/Min [facility] - Chemistry and C hemistry - challengeon 07-19-2022 Cholesterol [Mass/Vol] 164\S\164 Normal 140-200 [facility] [employer] DO Work Phone: Comment on above: Chol less than 200 m g/dl low risk Chol 201-239 mg/dl borderline risk Chol 240 mg/dl and greater high risk Cholesterol in LDL [Mass/Vol] 111\S\111 above high threshold 0-100 [facility] [employer] DO Work Phone: Comment on above: LDL ATP III CLASSIFI CATION LDL less than 100 mg/dL Optimal LDL 100-129 mg/dL Near or above optimal LDL 130-159 mg/dL Borderline high LDL 160-189 mg/dL High LDL greater than 189 mg/dL Very high No Panel Informationon 07-19 [facility] [employer] DO Work Phone: [phone]\S\[phone] Normal [facility] [employer] DO Work Phone: Comment on above: [...] this marker for estimation of CVD risk.PERFORMED BY:[facility] BROOKLYNRodríguezEsaLOU[place], [place] [phone] MEDICAL DIRECTORLEVY GILES M.D. 4.6\S\4.6 Normal <5.0 [facility] marianne [employer] DO Work Phone: Comment on above: PERFORMED BY:[facility] [place], [place] [phone] MEDICAL DIRECTORLEVY GILES M.D. 16\S\16 Normal [facility] yavalu DO Work Phone: [phone]\S\[phone] Normal 35-149 [facility] [employer] DO Work Phone: Comment on above: TRIG ATP III CLASSIF ICATION TRIG less than 150 mg/dL Normal TRIG 150-199 mg/dL Borderline high TRIG 200-500 mg/dL High TRIG greater than 500 mg/dL Very high Standard traceable to the Center for Disease Conrtrol and Prevention (CDC) test method. 36\S\36 Normal 29-71 [facility] yavalu DO Work Phone: Comment on above: HDL CHOL ATP-III CLA SSIFICATION Cardiovascular Risk HDL > or equal to 60 mg/dL LOW HDL < 40 mg/dL HIGH No Panel InformationOrdered By: Cipriano Stiles on 07-19-2022 25-Hydroxy Vitamin D Total 8.4 ng/mL 30-100 [facility] Comment on above: VITAMIN D STATUS 25( [place])VITAMIN D RANGE (ng/mL) Deficient <20 Insufficient 20 to <30Sufficient 30 to 100Reference: Vanna MF,[employer] OGLESBY, Sergey SIMENTAL, et al. Evaluation,treatment, and prevention of vitamin D deficiency; an Endocrine Society clinical practice guideline. JCEM. 2010; 96(7):1911-30. C-Peptide 1.8 ng/mL 1.1-4.4 [facility] Comment on above: C-Peptide reference interval is for fasting patients.Performed at: [facility] [employer] [facility] [id number] Director: Pablito Alexander PhD, Phone: [phone] Estimated GFR () 26 mL/Min [facility] Comment on above: GFR estimated refere nce range: According to KDOQI guidelines, <60 ml/min/1.73m2 is sufficient to diagnose a patient with chronic kidney disease. Pharmacy Creatinine Clearance (Chem N/A [facility] Phosphate [Mass/volume] in S gretta or PlasmaOrdered By: Cipriano Stiles on 07-19-2022 Phosphate [Mass/Vol] 5.7 mg/dL 2.5-4.6 [facility] Serum or plasma anion gap de terminationOrdered By: Cipriano Stiles on 07-19-2022 Anion gap [Moles/Vol] 11.6 mmol/L 6.0-15.0 [facility] Serum or plasma calcium farida urement (mass/volume)Ordered By: Cipriano Stiles on 07-19-2022 Calcium [Mass/Vol] 8.3 mg/dL 8.2-10.2 [facility] Serum or plasma chloride trina surement (moles/volume)Ordered By: Cipriano Stiles on 07-19-2022 Chloride [Moles/Vol] 106 mmol/L 95-114 [facility] Serum or plasma glucose farida urement (mass/volume)Ordered By: Cipriano Stiles on 07-19-2022 Glucose [Mass/Vol] 173 mg/dL 70-100 [facility] Comment on above: ADA recommended refe rence rangeRandom Glucose Reference Range is dependent on time and content of last meal. Glucose of more than 200 mg/dL in a nonstressed, ambulatory subject supports the diagnosis of Diabetes Mellitus. Serum or plasma high density lipoprotein (HDL) cholesterol measurementOrdered By: Denilson Gomez on 07-19-2022 Cholesterol in HDL [Mass/Vol] 36 mg/dL 29- [facility] Comment on above: HDL CHOL ATP-III CLA SSIFICATION Cardiovascular RiskHDL > or equal to 60 mg/dL LOWHDL < 40 mg/dL HIGH Serum or plasma potassium me asurement (moles/volume)Ordered By: Cipriano Stiles on 07-19-2022 Potassium [Moles/Vol] 4.2 mmol/L 3.5-5.1 [facility] Serum or plasma sodium measu rement (moles/volume)Ordered By: Cipriano Stiles on 07-19-2022 Sodium [Moles/Vol] 137 mmol/L 136-146 [facility] Serum or plasma total carbon dioxide measurement (moles/volume)Ordered By: Cipriano Stiles on 07-19-2022 CO2 [Moles/Vol] 23.6 mmol/L 22.0-30.0 [place] Serum or plasma total choles terol/high density lipoprotein (HDL) cholesterol mass ratOrdered By: Denilson Gomez on 07-19-2022 Cholesterol.total/Rosalind sterol in HDL [Mass ratio] 4.6 {ratio} <5.0 [facility] Serum or plasma urea nitroge n measurement (mass/volume)Ordered By: Cipriano Stiles on 07-19-2022 Urea nitrogen [Mass/Vol] 50 mg/dL 05-11 [facility] Triglyceride [Mass/volume] i n Serum or PlasmaOrdered By: Denilson Gomez on 07-19-2022 Triglyceride [Mass/Vol] 84 mg/dL 35-149 [facility] Comment on above: TRIG ATP [...] 20 mg/L (U) [Mass/Vol] 313.0 mg/dL 0.0-1.8 [facility] Urine microalbumin/creatinin e mass ratioOrdered By: Cipriano Stiles on 07-19-2022 Albumin/Creatinine DL <= 20 mg/L (U) [Mass ratio] 4091.0 mg/g 0.0-30.0 [facility] Comment on above: 30-300 mg/g indicate s an increased risk for diabetic nephropathy. Greater than 300 mg/g is consistent with clinical nephropathy. (Am. J. Kidney Disease 1995, 25:107) Albumin [Mass/volume] in Ser um or PlasmaOrdered By: Zeus Bradley on 07-09-2022 Albumin [Mass/Vol] 2.7 g/dL 3.2-5.5 [facility] Automated erythrocytes count in urine sediment (number/area)Ordered By: Zeus Bradley on 07-09-2022 RBC Auto (Urine sed) [#/Area] 3-4 [HPF] 0-4 [facility] Automated leukocytes count i n urine sediment (number/area)Ordered By: Zeus Bradley on 07-09-2022 WBC Auto (Urine sed) [#/Area] 0-1 [HPF] 0-4 [facility] Basophils Auto (Bld) [#/Vol] Ordered By: Zeus Bradley on 07-09-2022 Basophils (Bld) [#/Vol] 0.1 10*3/uL 0.0-0.2 [facility] Basophils/100 WBC Auto (Bld) Ordered By: Zeus Bradley on 07-09-2022 Basophils/100 WBC (Bld) 1.3 % . [facility] Bilirubin Test strip Ql (U)O rdered By: Zeus Bradley on 07-09-2022 Bilirubin Ql (U) Negative Negative [place] Color Auto (U)Ordered By: Nas Bradley on 07-09-2022 Color (U) Yellow Yellow [facility] Creatinine and Glomerular fi ltration rate.predicted panel (S/P/Bld)Ordered By: Zeus Bradley on 07-09-2022 Creatinine [Mass/Vol] 3.40 mg/dL 0.64-1.27 [facility] Eosinophils Auto (Bld) [#/Vo l]Ordered By: Zeus Bradley on 07-09-2022 Eosinophils (Bld) [#/Vol] 0.2 10*3/uL 0.0-0.45 [facility] Eosinophils/100 WBC Auto (Bl d)Ordered By: Zeus Bradley on 07-09-2022 Eosinophils/100 WBC (Bld) 1.9 % . [facility] Erythrocyte distribution wid th Auto (RBC) [Ratio]Ordered By: Zeus Bradley on 07-09-2022 Erythrocyte distribution width (RBC) [Ratio] 13.7 % 12.0-14.8 [facility] Estimated glomerular filtrat ion rate (GFR) non- AmericanOrdered By: Zeus Bradley on 07-09-2022 GFR/1.73 sq M.predicted among non-blacks MDRD (S/P/Bld) [Vol rate/Area] 20 mL/Min [facility] Globulin Calc (S) [Mass/Vol] Ordered By: Zeus Bradley on 07-09-2022 Globulin (S) [Mass/Vol] 3.8 g/dL [facility] Glucose Glucometer (BldC) [M ass/Vol]Ordered By: Zeus Bradley on 07-09-2022 Glucose [Mass/Vol] 128 mg/dL [facility] Comment on above: Random Glucose Refer ence Range is dependent on time and content of last meal. Glucose of more than 200 mg/dL in a nonstressed, ambulatory subject supports the diagnosis of Diabetes Mellitus. Hematocrit Auto (Bld) [Volum e fraction]Ordered By: Zeus Bradley on 07-09-2022 Hematocrit (Bld) [Volume fraction] 32.4 % 38.8-50.0 [facility] Hemoglobin [Mass/volume] in BloodOrdered By: Zeus Bradley on 07-09-2022 Hemoglobin (Bld) [Mass/Vol] 11.1 g/dL 13.0-17.0 [facility] Ketones Auto test strip (U) [Mass/Vol]Ordered By: Zeus Bradley on 07-09-2022 Ketones (U) [Mass/Vol] Negative Negative Fi [facility] Laboratory - Chemistry and C hemistry - challengeOrdered By: Zeus Bradley on 07-09-2022 Magnesium [Mass/Vol] 1.9 mg/dL 1.6-2.6 [facility] Laboratory - Hematology and Cell countsOrdered By: Zeus Bradley on 07-09-2022 Nucleated RBC/100 WBC (Bld) [Ratio] 0.0 % 0-0.5 [facility] Laboratory - UrinalysisOrder ed By: Zeus Bradley on 07-09-2022 Hyaline casts LM Ql (Urine sed) 0-8 [LPF] 0-8 [facility] Leukocytes [#/volume] in Blo od by Automated countOrdered By: Zeus Bradley on 07-09-2022 WBC (Bld) [#/Vol] 8.2 10*3/uL 4.5-11.0 [facility] Lymphocytes Auto (Bld) [#/Vo l]Ordered By: Zeus Bradley on 07-09-2022 Lymphocytes (Bld) [#/Vol] 1.3 10*3/uL 1.00-4.8 [facility] Lymphocytes/100 WBC Auto (Bl d)Ordered By: Zeus Bradley on 07-09-2022 Lymphocytes/100 WBC (Bld) 16.2 % . [facility] MCH Auto (RBC) [Entitic mass ]Ordered By: Zeus Bradley on 07-09-2022 MCH (RBC) [Entitic mass] 29.3 pg 27.5-35.2 [facility] MCHC Auto (RBC) [Mass/Vol]Or dered By: Zeus Bradley on 07-09-2022 MCHC (RBC) [Mass/Vol] 34.2 g/dL 32.5-35.6 [facility] MCV Auto (RBC) [Entitic vol] Ordered By: Zeus Bradley on 07-09-2022 MCV (RBC) [Entitic vol] 85.7 fL 83.5-101 [facility] Monocytes Auto (Bld) [#/Vol] Ordered By: Zeus Bradley on 07-09-2022 Monocytes (Bld) [#/Vol] 0.4 10*3/uL 0.0-0.8 [facility] Monocytes/100 WBC Auto (Bld) Ordered By: Zeus Bradley on 07-09-2022 Monocytes/100 WBC (Bld) 4.4 % . [facility] Neutrophils Auto (Bld) [#/Vo l]Ordered By: Zeus Bradley on 07-09-2022 Neutrophils (Bld) [#/Vol] 6.2 10*3/uL 1.8-7.7 [facility] Neutrophils/100 WBC Auto (Bl d)Ordered By: Zeus Bradley on 07-09-2022 Neutrophils/100 WBC (Bld) 76.2 % . [facility] Nitrite Test strip Ql (U)Ord ered By: Zeus Bradley on 07-09-2022 Nitrite Ql (U) Negative Negative [facility] No Panel InformationOrdered By: Zeus Bradley on 07-09-2022 Bedside Glucose Comment Glu2: cleaned meter [facility] Estimated GFR () 25 mL/Min [facility] Comment on above: GFR estimated refere nce range: According to KDOQI guidelines, <60 ml/min/1.73m2 is sufficient to diagnose a patient with chronic kidney disease. Pharmacy Creatinine Clearance (Chem 31.22 [facility] Platelet mean volume Auto (B ld) [Entitic vol]Ordered By: Zeus Bradley on 07-09-2022 Platelet mean volume (Bld) [Entitic vol] 8.0 fL 6.6-10.1 [facility] Platelets Auto (Bld) [#/Vol] Ordered By: Zeus Bradley on 07-09-2022 Platelets (Bld) [#/Vol] 228 10*3/uL 150-450 [facility] Protein Auto test strip (U) [Mass/Vol]Ordered By: Zeus Bradley on 07-09-2022 Protein (U) [Mass/Vol] mg/dL Negative Fi [facility] Protein [Mass/volume] in Ser um or PlasmaOrdered By: Zeus Bradley on 07-09-2022 Protein [Mass/Vol] 6.5 g/dL 6.1-7.9 [facility] RBC Auto (Bld) [#/Vol]Ordere d By: Zeus Bradley on 07-09-2022 RBC (Bld) [#/Vol] 3.78 10*6/uL 3.90-5.60 [facility] Serum or plasma alanine matthews otransferase measurement without P-5'-P (enzymatic activiOrdered By: Zeus Bradley on 07-09-2022 ALT No additional P-5'-P [Catalytic activity/Vol] 17 U/L 10-60 [facility] Serum or plasma albumin/glob ulin mass ratioOrdered By: Zeus Bradley on 07-09-2022 Albumin/Globulin [Mass ratio] 0.7 {ratio} [facility] Serum or plasma alkaline harriett sphatase measurement (enzymatic activity/volume)Ordered By: Zeus Bradley on 07-09-2022 ALP [Catalytic activity/Vol] 79 U/L 32-92 [facility] Serum or plasma anion gap de terminationOrdered By: Zeus Bradley on 07-09-2022 Anion gap [Moles/Vol] 7.1 mmol/L 6.0-15.0 [facility] Serum or plasma aspartate am inotransferase measurement (enzymatic activity/volume)Ordered By: Zeus Bradley on 07-09-2022 AST [Catalytic activity/Vol] 18 U/L 10-42 [facility] Serum or plasma calcium farida urement (mass/volume)Ordered By: Zeus Bradley on 07-09-2022 Calcium [Mass/Vol] 8.6 mg/dL 8.2-10.2 [facility] Serum or plasma chloride trina surement (moles/volume)Ordered By: Zeus Bradley on 07-09-2022 Chloride [Moles/Vol] 105 mmol/L 95-114 [facility] Serum or plasma glucose farida urement (mass/volume)Ordered By: Zeus Bradley on 07-09-2022 Glucose [Mass/Vol] 80 mg/dL 70-100 [facility] Comment on above: ADA recommended refe rence rangeRandom Glucose Reference Range is dependent on time and content of last meal. Glucose of more than 200 mg/dL in a nonstressed, ambulatory subject supports the diagnosis of Diabetes Mellitus. Serum or plasma potassium me asurement (moles/volume)Ordered By: Zeus Bradley on 07-09-2022 Potassium [Moles/Vol] 4.0 mmol/L 3.5-5.1 [facility] Serum or plasma sodium measu rement (moles/volume)Ordered By: Zeus Bradley on 07-09-2022 Sodium [Moles/Vol] 133 mmol/L 136-146 [facility] Serum or plasma total biliru bin measurement (mass/volume)Ordered By: Zeus Bradley on 07-09-2022 Bilirubin [Mass/Vol] 0.5 mg/dL 0.3-1.2 [facility] Serum or plasma total carbon dioxide measurement (moles/volume)Ordered By: Zeus Bradley on 07-09-2022 CO2 [Moles/Vol] 24.9 mmol/L 22.0-30.0 [place] Serum or plasma urea nitroge n measurement (mass/volume)Ordered By: Zeus Bradley on 07-09-2022 Urea nitrogen [Mass/Vol] 36 mg/dL 9- [facility] Specific gravity Auto test s trip (U) [Rel density]Ordered By: Zeus Bradley on 07-09-2022 Specific gravity (U) [Rel density] 1.009 1.001-1.030 [facility] Squamous epithelial cells de tection in urine sediment by light microscopyOrdered By: Zeus Bradley on 07-09-2022 Epithelial cells.squamous LM Ql (Urine sed) 0-1 [HPF] 0-2 [facility] Urine bacteria detection by automated methodOrdered By: Zeus Bradley on 07-09-2022 Bacteria Auto Ql (U) None seen None Seen [facility] Urine clarity by refractomet ry automatedOrdered By: Zeus Bradley on 07-09-2022 Clarity Refractometry automated (U) Clear Clear [facility] Urine glucose measurement by automated test strip (mass/volume)Ordered By: Zeus Bradley on 07-09-2022 Glucose Auto test strip (U) [Mass/Vol] 250 mg/dL Normal [facility] Urine hemoglobin detection b y automated test stripOrdered By: Zeus Bradley on 07-09-2022 Hemoglobin Auto test strip Ql (U) 1+ Negative [facility] Urine leukocyte esterase det ection by automated test stripOrdered By: Zeus Bradley on 07-09-2022 Leukocyte esterase Auto test strip Ql (U) Negative Negative [facility] Urobilinogen Auto test strip (U) [Mass/Vol]Ordered By: Zeus Bradley on 07-09-2022 Urobilinogen (U) [Mass/Vol] Normal mg/dL Normal [facility] pH Auto test strip (U)Ordere d By: Zeus Bradley on 07-09-2022 pH (U) 5.5 [pH] 5.0-9.0 [facility] Office Visit (Cardiology)on 07-05-2022 Follow-up visit [...] 21.9 in adult (V85.1) (Z68.21) History of WV (myocardial infarction) (412) (I25.2) Chronic kidney disease [...] we can help. You may also call [phone]-NOW for free resources and assistance.; Status:Complete - Retrospective Authorization; Done: [id number] Tobacco Use Screening; Status:Complete; Done: [id number] Patient Instructions Please bring all medicines, vitamins, [...] is followed by nephrology. He sustained anterior WV in October 2021 with primary revascularization of the LAD with residual circumflex and RCA disease. His left ventricular function at that time was 40 to 45%. He has underlying type 1 diabetes, progressive/chronic kidney disease as noted, ongoing tobacco use, class II angina. Is [place] [employer] is class IIc and remains [...] Recorded: 05Jul2022 11:35AM Heart Rate72, R Radial [id number], LUE, Sitting [place]82, LUE, Sitting Height6 ft 1 in Fufiwm602 lb BMI Ynwshgwmho87.11 kg/m2 BSA Calculated1.96 Tobacco Useb) No Falls Screening (Age 18+)c) Not medically indicated Physical Exam Constitutional: alert and in no acute distress. Neck: neck is supple, symmetric, trachea midline, no masses and no thyromegaly . Pulmonary: no increased work (more content not included)... Normal [employer] Tobacco Screening.on 022 Fall risk assessment c) Not medically indicated [facility] [employer] DO Work Phone: Tobacco use status [facility] b) No [facility] [employer] DO Work Phone: Automated erythrocytes count in urine sediment (number/area)Ordered By: Agnel Mejía on 06-29-2022 RBC Auto (Urine sed) [#/Area] 5-9 [HPF] 0-4 [facility] Automated leukocytes count i n urine sediment (number/area)Ordered By: Angel Mejía on 06-29-2022 WBC Auto (Urine sed) [#/Area] 1-2 [HPF] 0-4 [facility] Bilirubin Test strip Ql (U)O rdered By: Angel Mejía on 06-29-2022 Bilirubin Ql (U) Negative Negative [place] Body fluid albumin measureme nt (mass/volume)Ordered By: Angel Mejía on 06-29-2022 Albumin (Body fld) [Mass/Vol] 2.8 g/dL 3.2-5.[address] [facility] [address] biopsyOrdered By: Varsha ricardo on 06-29-2022 Transferrin [Mass/Vol] 166 mg/dL 180-380 [facility] Color Auto (U)Ordered By: Ab yusra Mejía on 06-29-2022 Color (U) Yellow Yellow [facility] Creatinine [Mass/volume] in UrineOrdered By: Angel Mejía on 06-29-2022 Creatinine (U) [Mass/Vol] 39.6 mg/dL [facility] Comment on above: No reference range e stablished Creatinine and Glomerular fi ltration rate.predicted panel (S/P/Bld)Ordered By: Angel Mejía on 06-29-2022 Creatinine [Mass/Vol] 3.30 mg/dL 0.64-1.27 [facility] Erythrocyte distribution wid th Auto (RBC) [Ratio]Ordered By: Angel Mejía on 06-29-2022 Erythrocyte distribution width (RBC) [Ratio] 13.6 % 12.0-14.8 [facility] Estimated glomerular filtrat ion rate (GFR) non- AmericanOrdered By: Angel Mejía on 06-29-2022 GFR/1.73 sq M.predicted among non-blacks MDRD (S/P/Bld) [Vol rate/Area] 21 mL/Min [facility] Ferritin [Mass/volume] in Se rum or PlasmaOrdered By: Angel Mejía on 06-29-2022 Ferritin [Mass/Vol] 123.9 ng/mL 23.9-336.2 [facility] Hematocrit Auto (Bld) [Volum e fraction]Ordered By: Angel Mejía on 06-29-2022 Hematocrit (Bld) [Volume fraction] 33.2 % 38.8-50.0 [facility] Hemoglobin [Mass/volume] in BloodOrdered By: Angel Mejía on 06-29-2022 Hemoglobin (Bld) [Mass/Vol] 11.4 g/dL 13.0-17.0 [facility] Iron [Mass/volume] in Serum or PlasmaOrdered By: Angel Mejía on 06-29-2022 Iron [Mass/Vol] 63 ug/dL 40-160 [facility] Iron binding capacity [Mass/ volume] in Serum or PlasmaOrdered By: Angel Mejía on 06-29-2022 Iron binding capacity [Mass/Vol] 232 ug/dL 255-450 [facility] Iron saturation [Mass Fracti on] in Serum or PlasmaOrdered By: Angel Mejía on 06-29-2022 Iron saturation [Mass fraction] 27.0 % 20-50 [facility] Ketones Auto test strip (U) [Mass/Vol]Ordered By: Angel Mejía on 06-29-2022 Ketones (U) [Mass/Vol] Negative Negative Fi [facility] Laboratory - Chemistry and C hemistry - challengeOrdered By: Angel Mejía on 06-29-2022 Magnesium [Mass/Vol] 1.9 mg/dL 1.6-2.6 [facility] Laboratory - UrinalysisOrder ed By: Angel Mejía on 06-29-2022 Hyaline casts LM Ql (Urine sed) 0-8 [LPF] 0-8 [facility] MCH Auto (RBC) [Entitic mass ]Ordered By: Angel Mejía on 06-29-2022 MCH (RBC) [Entitic mass] 29.2 pg 27.5-35.2 [facility] MCHC Auto (RBC) [Mass/Vol]Or dered By: Angel Mejía on 06-29-2022 MCHC (RBC) [Mass/Vol] 34.3 g/dL 32.5-35.6 [facility] MCV Auto (RBC) [Entitic vol] Ordered By: Angel Mejía on 06-29-2022 MCV (RBC) [Entitic vol] 85.2 fL 83.5-101 [facility] Nitrite Test strip Ql (U)Ord ered By: Angel Mejía on 06-29-2022 Nitrite Ql (U) Negative Negative [facility] No Panel InformationOrdered By: Angel Mejía on 06-29-2022 Estimated GFR () 26 mL/Min [facility] Comment on above: GFR estimated refere nce range: According to KDOQI guidelines, <60 ml/min/1.73m2 is sufficient to diagnose a patient with chronic kidney disease. Pharmacy Creatinine Clearance (Chem N/A [facility] Phosphate [Mass/volume] in S gretta or PlasmaOrdered By: Angel Mejía on 06-29-2022 Phosphate [Mass/Vol] 5.0 mg/dL 2.5-4.6 [facility] Platelet mean volume Auto (B ld) [Entitic vol]Ordered By: Angel Joyce on 06-29-2022 Platelet mean volume (Bld) [Entitic vol] 8.6 fL 6.6-10.1 [facility] Platelets Auto (Bld) [#/Vol] Ordered By: Angel Mejía on 06-29-2022 Platelets (Bld) [#/Vol] 242 10*3/uL 150-450 [facility] Protein Auto test strip (U) [Mass/Vol]Ordered By: Angel Mejía on 06-29-2022 Protein (U) [Mass/Vol] 300 mg/dL Negative Fi [facility] Protein [Mass/volume] in Uri neOrdered By: Angel Joyce on 06-29-2022 Protein (U) [Mass/Vol] 315 mg/dL 0-9 [facility] RBC Auto (Bld) [#/Vol]Ordere d By: Angel Georger on 06-29-2022 RBC (Bld) [#/Vol] 3.90 10*6/uL 3.90-5.60 [facility] Serum or plasma anion gap de terminationOrdered By: Angel Joyce on 06-29-2022 Anion gap [Moles/Vol] 13.4 mmol/L 6.0-15.0 [facility] Serum or plasma calcium farida urement (mass/volume)Ordered By: Angel Cortezdir on 06-29-2022 Calcium [Mass/Vol] 8.9 mg/dL 8.2-10.2 [facility] Serum or plasma chloride trina surement (moles/volume)Ordered By: Angel Mejía on 11-11-2022 Chloride [Moles/Vol] 101 mmol/L 95-114 [facility] Serum or plasma glucose farida urement (mass/volume)Ordered By: Angel Mejía on 06-29-2022 Glucose [Mass/Vol] 70 mg/dL 70-100 [facility] Comment on above: ADA recommended refe rence rangeRandom Glucose Reference Range is dependent on time and content of last meal. Glucose of more than 200 mg/dL in a nonstressed, ambulatory subject supports the diagnosis of Diabetes Mellitus. Serum or plasma intact parat hyroid hormone measurement (mass/volume)Ordered By: Angel Mejía on 06-29-2022 Parathyrin.intact [Mass/Vol] 244.2 pg/mL [facility] Serum or plasma potassium me asurement (moles/volume)Ordered By: Angel Mejía on 06-29-2022 Potassium [Moles/Vol] 4.7 mmol/L 3.5-5.1 [facility] Serum or plasma sodium measu rement (moles/volume)Ordered By: Angel Mejía on 06-29-2022 Sodium [Moles/Vol] 133 mmol/L 136-146 [facility] Serum or plasma total carbon dioxide measurement (moles/volume)Ordered By: Angel Mejía on 06-29-2022 CO2 [Moles/Vol] 23.3 mmol/L 22.0-30.0 [place] Serum or plasma urea nitroge n measurement (mass/volume)Ordered By: Angel Mejía 06-29-2022 Urea nitrogen [Mass/Vol] 35 mg/dL 05-11 [facility] Serum or plasma uric acid me asurement (mass/volume)Ordered By: Angel Mejía on 06-29-2022 Urate [Mass/Vol] 5.7 mg/dL 2.6-7.2 [place] Specific gravity Auto test s trip (U) [Rel density]Ordered By: Angel Mejía on 06-29-2022 Specific gravity (U) [Rel density] 1.007 1.001-1.030 [facility] Squamous epithelial cells de tection in urine sediment by light microscopyOrdered By: Angel Mejía on 06-29-2022 Epithelial cells.squamous LM Ql (Urine sed) 0-1 [HPF] 0-2 [facility] Urine bacteria detection by automated methodOrdered By: Angel Mejía on 06-29-2022 Bacteria Auto Ql (U) None seen None Seen [facility] Urine clarity by refractomet ry automatedOrdered By: Angel Mejía on 06-29-2022 Clarity Refractometry automated (U) Clear Clear [facility] Urine glucose measurement by automated test strip (mass/volume)Ordered By: Angel Mejía on 06-29-2022 Glucose Auto test strip (U) [Mass/Vol] Normal mg/dL Normal [facility] Urine hemoglobin detection b y automated test stripOrdered By: Angel Mejía on 06-29-2022 Hemoglobin Auto test strip Ql (U) 1+ Negative [facility] Urine leukocyte esterase det ection by automated test stripOrdered By: Angel Mejía on 06-29-2022 Leukocyte esterase Auto test strip Ql (U) Negative Negative [facility] Urine protein/creatinine rat ioOrdered By: Angel Mejía on 06-29-2022 Protein/Creatinine (U) [Ratio] 7955 mg/g{Cre} 0-200 [facility] Urobilinogen Auto test strip (U) [Mass/Vol]Ordered By: Angel Mejía on 06-29-2022 Urobilinogen (U) [Mass/Vol] Normal mg/dL Normal [facility] WBC Auto (Bld) [#/Vol]Ordere d By: Angel Mejía on 06-29-2022 WBC (Bld) [#/Vol] 7.3 10*3/uL 4.1-10.5 [facility] pH Auto test strip (U)Ordere d By: Angel Mejía on 06-29-2022 pH (U) 6.0 [pH] 5.0-9.0 [facility] Activated partial thrombopla stin time (aPTT) in platelet poor plasma by coagulation aOrdered By: Yobani Hansen on 06-13-2022 aPTT Coag (PPP) [Time] 42.5 s 25.1-36.5 [facility] Albumin [Mass/volume] in Ser um or PlasmaOrdered By: Yobani Hansen on 06-13-2022 Albumin [Mass/Vol] 2.3 g/dL 3.2-5.5 [facility] Automated erythrocytes count in urine sediment (number/area)Ordered By: Yobani Hansen on 06-13-2022 RBC Auto (Urine sed) [#/Area] 10-19 [HPF] 0-4 [facility] Automated leukocytes count i n urine sediment (number/area)Ordered By: Yobani Hansen on 06-13-2022 WBC Auto (Urine sed) [#/Area] 3-4 [HPF] 0-4 [facility] Basophils Auto (Bld) [#/Vol] Ordered By: Yobani Hansen on 06-13-2022 Basophils (Bld) [#/Vol] 0.1 10*3/uL 0.0-0.2 [facility] Basophils/100 WBC Auto (Bld) Ordered By: Yobani Hansen on 06-13-2022 Basophils/100 WBC (Bld) 1.3 % . F [facility] Bilirubin Test strip Ql (U)O rdered By: Yobani Hansen on 06-13-2022 Bilirubin Ql (U) Negative Negative [place] COVID CepheidOrdered By: Elina Hansen on 06-13-2022 SARS-CoV-2 (COVID-19) RNA HAO+probe Ql (Unsp spec) [facility] SARS-CoV-2 (COVID-19) Ab IA Ql Negative Negative [facility] Comment on above: This is a duplicate Cepheid Xpert Xpress CoV-2/Flu/RSV Plus RNA by RT-PCR result to be used for statistical tracking purpose only. SARS-CoV-2 (COVID-19) RNA HAO+probe Ql (Unsp spec) [facility] Color Auto (U)Ordered By: Leandro Hansen on 06-13-2022 Color (U) Yellow Yellow [facility] Creatinine and Glomerular fi ltration rate.predicted panel (S/P/Bld)Ordered By: Yobani Hansen on 06-13-2022 Creatinine [Mass/Vol] 3.47 mg/dL 0.64-1.27 [facility] Eosinophils Auto (Bld) [#/Vo l]Ordered By: Yobani Hansen on 06-13-2022 Eosinophils (Bld) [#/Vol] 0.1 10*3/uL 0.0-0.45 [facility] Eosinophils/100 WBC Auto (Bl d)Ordered By: Yobani Hansen on 06-13-2022 Eosinophils/100 WBC (Bld) 0.8 % . [facility] Erythrocyte distribution wid th Auto (RBC) [Ratio]Ordered By: Yobani Hansen on 06-13-2022 Erythrocyte distribution width (RBC) [Ratio] 13.0 % 12.0-14.8 [facility] Estimated glomerular filtrat ion rate (GFR) non- AmericanOrdered By: Yobani Hansen on 06-13-2022 GFR/1.73 sq M.predicted among non-blacks MDRD (S/P/Bld) [Vol rate/Area] 20 mL/Min [facility] Globulin Calc (S) [Mass/Vol] Ordered By: Yobani Hansen on 06-13-2022 Globulin (S) [Mass/Vol] 3.6 g/dL [facility] Glucose Glucometer (BldC) [M ass/Vol]Ordered By: Yobani Hansen on 06-13-2022 Glucose [Mass/Vol] 161 mg/dL [facility] Comment on above: Random Glucose Refer ence Range is dependent on time and content of last meal. Glucose of more than 200 mg/dL in a nonstressed, ambulatory subject supports the diagnosis of Diabetes Mellitus. Hematocrit Auto (Bld) [Volum e fraction]Ordered By: Yobani Hansen on 06-13-2022 Hematocrit (Bld) [Volume fraction] 34.0 % 38.8-50.0 [facility] Hemoglobin [Mass/volume] in BloodOrdered By: Yobani Hansen on 06-13-2022 Hemoglobin (Bld) [Mass/Vol] 11.3 g/dL 13.0-17.0 [facility] Ketones Auto test strip (U) [Mass/Vol]Ordered By: Yobani Hansen on 06-13-2022 Ketones (U) [Mass/Vol] Negative Negative [facility] Laboratory - Chemistry and C hemistry - challengeOrdered By: Yobani Hansen on 06-13-2022 Lipase [Catalytic activity/Vol] 20.0 U/L 22-51 [facility] Natriuretic peptide B (Bld) [Mass/Vol] 733.0 pg/mL 5-100 [facility] Laboratory - CoagulationOrde red By: Yobani Hansen on 06-13-2022 PT Coag (PPP) [Time] 11.7 s 9.0-12.9 [facility] Laboratory - Hematology and Cell countsOrdered By: Yobani Hansen on 06-13-2022 Nucleated RBC/100 WBC (Bld) [Ratio] 0.1 % 0-0.5 [facility] Laboratory - UrinalysisOrder ed By: Yobani Hansen on 06-13-2022 Hyaline casts LM Ql (Urine sed) 0-8 [LPF] 0-8 [facility] Leukocytes [#/volume] in Blo od by Automated countOrdered By: Yobani Hansen on 06-13-2022 WBC (Bld) [#/Vol] 9.0 10*3/uL 4.5-11.0 [facility] Lymphocytes Auto (Bld) [#/Vo l]Ordered By: Yobani Hansen on 06-13-2022 Lymphocytes (Bld) [#/Vol] 1.1 10*3/uL 1.00-4.8 [facility] Lymphocytes/100 WBC Auto (Bl d)Ordered By: Yobani Hansen on 06-13-2022 Lymphocytes/100 WBC (Bld) 12.6 % . [facility] MCH Auto (RBC) [Entitic mass ]Ordered By: Yobani Hansen on 06-13-2022 MCH (RBC) [Entitic mass] 28.6 pg 27.5-35.2 [facility] MCHC Auto (RBC) [Mass/Vol]Or dered By: Yobani Hansen on 06-13-2022 MCHC (RBC) [Mass/Vol] 33.3 g/dL 32.5-35.6 [facility] MCV Auto (RBC) [Entitic vol] Ordered By: Yobani Hansen on 06-13-2022 MCV (RBC) [Entitic vol] 86.0 fL 83.5-101 [facility] Monocytes Auto (Bld) [#/Vol] Ordered By: Yobani Hansen on 06-13-2022 Monocytes (Bld) [#/Vol] 0.4 10*3/uL 0.0-0.8 [facility] Monocytes/100 WBC Auto (Bld) Ordered By: Yobani Hansen on 06-13-2022 Monocytes/100 WBC (Bld) 4.3 % . [facility] Neutrophils Auto (Bld) [#/Vo l]Ordered By: Yobani Hansen on 06-13-2022 Neutrophils (Bld) [#/Vol] 7.3 10*3/uL 1.8-7.7 [facility] Neutrophils/100 WBC Auto (Bl d)Ordered By: Yobani Hansen on 06-13-2022 Neutrophils/100 WBC (Bld) 81.0 % . [facility] Nitrite Test strip Ql (U)Ord ered By: Yobani Hansen on 06-13-2022 Nitrite Ql (U) Negative Negative [facility] No Panel InformationOrdered By: Yobani Hansen on 06-13-2022 Estimated GFR () 24 mL/Min [facility] Comment on above: GFR estimated refere nce range: According to KDOQI guidelines, <60 ml/min/1.73m2 is sufficient to diagnose a patient with chronic kidney disease. Pharmacy Creatinine Clearance (Chem 29.92 [facility] Platelet mean volume Auto (B ld) [Entitic vol]Ordered By: Yobani Hansen on 06-13-2022 Platelet mean volume (Bld) [Entitic vol] 8.1 fL 6.6-10.1 [facility] Platelet poor plasma interna tional normalized ratio (INR) by coagulation assay (relatOrdered By: Yobani Hansen on 06-13-2022 INR Coag (PPP) [Relative time] 1.0 {INR} [facility] Comment on above: INR Therapeutic Rang [...] 06-13-2022 Platelets (Bld) [#/Vol] 237 10*3/uL 150-450 [facility] Protein Auto test strip (U) [Mass/Vol]Ordered By: Yobani Hansen on 06-13-2022 Protein (U) [Mass/Vol] 300 mg/dL Negative [facility] Protein [Mass/volume] in Ser um or PlasmaOrdered By: Yobani Hansen on 06-13-2022 Protein [Mass/Vol] 5.9 g/dL 6.1-7.9 [facility] RBC Auto (Bld) [#/Vol]Ordere d By: Yobani Hansen on 06-13-2022 RBC (Bld) [#/Vol] 3.95 10*6/uL 3.90-5.60 [facility] Serum or plasma alanine matthews otransferase measurement without P-5'-P (enzymatic activiOrdered By: Yobani Hansen on 06-13-2022 ALT No additional P-5'-P [Catalytic activity/Vol] 17 U/L [facility] Serum or plasma albumin/glob ulin mass ratioOrdered By: Yobani Hansen on 06-13-2022 Albumin/Globulin [Mass ratio] 0.6 {ratio} [facility] Serum or plasma alkaline harriett sphatase measurement (enzymatic activity/volume)Ordered By: Yobani Hansen on 06-13-2022 ALP [Catalytic activity/Vol] 76 U/L 32-92 [facility] Serum or plasma anion gap de terminationOrdered By: Yobani Hansen on 06-13-2022 Anion gap [Moles/Vol] 13.3 mmol/L 6.0-15.0 [facility] Serum or plasma aspartate am inotransferase measurement (enzymatic activity/volume)Ordered By: Yobani Hansen on 06-13-2022 AST [Catalytic activity/Vol] 20 U/L [facility] Serum or plasma calcium farida urement (mass/volume)Ordered By: Yobani Hansen on 06-13-2022 Calcium [Mass/Vol] 8.8 mg/dL 8.2-10.2 [facility] Serum or plasma chloride trina surement (moles/volume)Ordered By: Yobani Hansen on 06-13-2022 Chloride [Moles/Vol] 105 mmol/L 95-114 [facility] Serum or plasma glucose farida urement (mass/volume)Ordered By: Yobani Hansen on 06-13-2022 Glucose [Mass/Vol] 163 mg/dL 70-100 [facility] Comment on above: ADA recommended refe rence rangeRandom Glucose Reference Range is dependent on time and content of last meal. Glucose of more than 200 mg/dL in a nonstressed, ambulatory subject supports the diagnosis of Diabetes Mellitus. Serum or plasma potassium me asurement (moles/volume)Ordered By: Yobani Hansen on 06-13-2022 Potassium [Moles/Vol] 4.7 mmol/L 3.5-5.1 [facility] Serum or plasma sodium measu rement (moles/volume)Ordered By: Yobani Hansen on 06-13-2022 Sodium [Moles/Vol] 138 mmol/L 136-146 [facility] Serum or plasma total biliru bin measurement (mass/volume)Ordered By: Yobani Hansen on 06-13-2022 Bilirubin [Mass/Vol] 0.4 mg/dL 0.3-1.2 [facility] Serum or plasma total carbon dioxide measurement (moles/volume)Ordered By: Yobani Hansen on 06-13-2022 CO2 [Moles/Vol] 24.4 mmol/L 22.0-30.0 [place] Serum or plasma urea nitroge n measurement (mass/volume)Ordered By: Yobani Hansen on 06-13-2022 Urea nitrogen [Mass/Vol] 47 mg/dL 9-23 [facility] Specific gravity Auto test s trip (U) [Rel density]Ordered By: Yobani Hansen on 06-13-2022 Specific gravity (U) [Rel density] 1.011 1.001-1.030 [facility] Squamous epithelial cells de tection in urine sediment by light microscopyOrdered By: Yobani Hansen on 06-13-2022 Epithelial cells.squamous LM Ql (Urine sed) 0-1 [HPF] 0-2 [facility] Troponin I.cardiac [Mass/vol ume] in Serum or Plasma by High sensitivity methodOrdered By: Yobani Hansen on 06-13-2022 Troponin I.cardiac High sensitivity method [Mass/Vol] 49 pg/mL 0-20 [facility] Urine bacteria detection by automated methodOrdered By: Yobani Hansen on 06-13-2022 Bacteria Auto Ql (U) None seen None Seen [facility] Urine clarity by refractomet ry automatedOrdered By: Yobani Hansen on 06-13-2022 Clarity Refractometry automated (U) Clear Clear [facility] Urine glucose measurement by automated test strip (mass/volume)Ordered By: Yobani Hansen on 06-13-2022 Glucose Auto test strip (U) [Mass/Vol] 250 mg/dL Normal [facility] Urine hemoglobin detection b y automated test stripOrdered By: Yobani Hansen on 06-13-2022 Hemoglobin Auto test strip Ql (U) 2+ Negative [facility] Urine leukocyte esterase det ection by automated test stripOrdered By: Yobani Hansen on 06-13-2022 Leukocyte esterase Auto test strip Ql (U) Negative Negative [facility] Urobilinogen Auto test strip (U) [Mass/Vol]Ordered By: Yobani Hansen on 06-13-2022 Urobilinogen (U) [Mass/Vol] Normal mg/dL Normal [facility] pH Auto test strip (U)Ordere d By: Yobani Hansen on 06-13-2022 pH (U) 6.5 [pH] 5.0-9.0 [facility] Activated partial thrombopla stin time (aPTT) in platelet poor plasma by coagulation aOrdered By: Govind Anderson on 06-03-2022 aPTT Coag (PPP) [Time] 41.0 s 25.1-36.5 [facility] Albumin [Mass/volume] in Ser um or PlasmaOrdered By: Govind Anderson on 06-03-2022 Albumin [Mass/Vol] 2.0 g/dL 3.2-5.5 [facility] Basophils Auto (Bld) [#/Vol] Ordered By: Govind Anderson on 06-03-2022 Basophils (Bld) [#/Vol] 0.1 10*3/uL 0.0-0.2 [facility] Basophils/100 WBC Auto (Bld) Ordered By: Govind Anderson on 06-03-2022 Basophils/100 WBC (Bld) 1.2 % . [facility] Creatine kinase [Enzymatic a ctivity/volume] in Serum or PlasmaOrdered By: Govind Anderson on 06-03-2022 CK [Catalytic activity/Vol] 246 U/L 22-269 [facility] Creatinine and Glomerular fi ltration rate.predicted panel (S/P/Bld)Ordered By: Govind Anderson on 06-03-2022 Creatinine [Mass/Vol] 3.27 mg/dL 0.64-1.27 [facility] Eosinophils Auto (Bld) [#/Vo l]Ordered By: Govind Anderson on 06-03-2022 Eosinophils (Bld) [#/Vol] 0.1 10*3/uL 0.0-0.45 [facility] Eosinophils/100 WBC Auto (Bl d)Ordered By: Govind Anderson on 06-03-2022 Eosinophils/100 WBC (Bld) 1.9 % . [facility] Erythrocyte distribution wid th Auto (RBC) [Ratio]Ordered By: Govind Anderson on 06-03-2022 Erythrocyte distribution width (RBC) [Ratio] 12.4 % 12.0-14.8 [facility] Estimated glomerular filtrat ion rate (GFR) non- AmericanOrdered By: Govind Anderson on 06-03-2022 GFR/1.73 sq M.predicted among non-blacks MDRD (S/P/Bld) [Vol rate/Area] 21 mL/Min [facility] Globulin Calc (S) [Mass/Vol] Ordered By: Govind Anderson on 06-03-2022 Globulin (S) [Mass/Vol] 3.2 g/dL [facility] Hematocrit Auto (Bld) [Volum e fraction]Ordered By: Govind Anderson on 06-03-2022 Hematocrit (Bld) [Volume fraction] 28.6 % 38.8-50.0 [facility] Hemoglobin [Mass/volume] in BloodOrdered By: Govind Anderson on 06-03-2022 Hemoglobin (Bld) [Mass/Vol] 9.9 g/dL 13.0-17.0 [facility] Laboratory - Chemistry and C hemistry - challengeOrdered By: Govind Anderson on 06-03-2022 Natriuretic peptide B (Bld) [Mass/Vol] 569.0 pg/mL 5-100 [facility] Laboratory - CoagulationOrde red By: Govind Anderson on 06-03-2022 PT Coag (PPP) [Time] 12.6 s 9.0-12.9 [facility] Laboratory - Hematology and Cell countsOrdered By: Govind Anderson on 06-03-2022 Nucleated RBC/100 WBC (Bld) [Ratio] 0.1 % 0-0.5 [facility] Leukocytes [#/volume] in Blo od by Automated countOrdered By: Govind Anderson on 06-03-2022 WBC (Bld) [#/Vol] 6.8 10*3/uL 4.5-11.0 [facility] Lymphocytes Auto (Bld) [#/Vo l]Ordered By: Govind Anderson on 06-03-2022 Lymphocytes (Bld) [#/Vol] 1.4 10*3/uL 1.00-4.8 [facility] Lymphocytes/100 WBC Auto (Bl d)Ordered By: Govind Anderson on 06-03-2022 Lymphocytes/100 WBC (Bld) 21.1 % . [facility] MCH Auto (RBC) [Entitic mass ]Ordered By: Govind Anderson on 06-03-2022 MCH (RBC) [Entitic mass] 29.3 pg 27.5-35.2 [facility] MCHC Auto (RBC) [Mass/Vol]Or dered By: Govind Anderson on 06-03-2022 MCHC (RBC) [Mass/Vol] 34.7 g/dL 32.5-35.6 [facility] MCV Auto (RBC) [Entitic vol] Ordered By: Govind Anderson on 06-03-2022 MCV (RBC) [Entitic vol] 84.4 fL 83.5-101 [facility] Monocytes Auto (Bld) [#/Vol] Ordered By: Govind Anderson on 06-03-2022 Monocytes (Bld) [#/Vol] 0.3 10*3/uL 0.0-0.8 [facility] Monocytes/100 WBC Auto (Bld) Ordered By: Govind Anderson on 06-03-2022 Monocytes/100 WBC (Bld) 5.1 % . [facility] Neutrophils Auto (Bld) [#/Vo l]Ordered By: Govind Anderson on 06-03-2022 Neutrophils (Bld) [#/Vol] 4.8 10*3/uL 1.8-7.7 [facility] Neutrophils/100 WBC Auto (Bl d)Ordered By: Govind Anderson on 06-03-2022 Neutrophils/100 WBC (Bld) 70.7 % . [facility] No Panel InformationOrdered By: Govind Andesron on 06-03-2022 Estimated GFR () 26 mL/Min [facility] Comment on above: GFR estimated refere nce range: According to KDOQI guidelines, <60 ml/min/1.73m2 is sufficient to diagnose a patient with chronic kidney disease. Pharmacy Creatinine Clearance (Chem 33.73 [facility] Platelet mean volume Auto (B ld) [Entitic vol]Ordered By: Govind Anderson on 06-03-2022 Platelet mean volume (Bld) [Entitic vol] 8.1 fL 6.6-10.1 [facility] Platelet poor plasma interna tional normalized ratio (INR) by coagulation assay (relatOrdered By: Govind Anderson on 06-03-2022 INR Coag (PPP) [Relative time] 1.1 {INR} [facility] Comment on above: INR Therapeutic Rang [...] 06-03-2022 Platelets (Bld) [#/Vol] 232 10*3/uL 150-450 [facility] Protein [Mass/volume] in Ser um or PlasmaOrdered By: Govind Anderson on 06-03-2022 Protein [Mass/Vol] 5.2 g/dL 6.1-7.9 [facility] RBC Auto (Bld) [#/Vol]Ordere d By: Govind Anderson on 06-03-2022 RBC (Bld) [#/Vol] 3.39 10*6/uL 3.90-5.60 [facility] Serum or plasma alanine matthews otransferase measurement without P-5'-P (enzymatic activiOrdered By: Govind Anderson on 06-03-2022 ALT No additional P-5'-P [Catalytic activity/Vol] 13 U/L 10-60 [facility] Serum or plasma albumin/glob ulin mass ratioOrdered By: Govind Anderson on 06-03-2022 Albumin/Globulin [Mass ratio] 0.6 {ratio} [facility] Serum or plasma alkaline harriett sphatase measurement (enzymatic activity/volume)Ordered By: Govind Anderson on 06-03-2022 ALP [Catalytic activity/Vol] 77 U/L 32-92 [facility] Serum or plasma anion gap de terminationOrdered By: Govind Anderson on 06-03-2022 Anion gap [Moles/Vol] 11.6 mmol/L 6.0-15.0 [facility] Serum or plasma aspartate am inotransferase measurement (enzymatic activity/volume)Ordered By: Govind Anderson on 06-03-2022 AST [Catalytic activity/Vol] 15 U/L 10-42 [facility] Serum or plasma calcium farida urement (mass/volume)Ordered By: Govind Anderson on 06-03-2022 Calcium [Mass/Vol] 7.9 mg/dL 8.2-10.2 [facility] Serum or plasma chloride trina surement (moles/volume)Ordered By: Govind Anderson on 06-03-2022 Chloride [Moles/Vol] 101 mmol/L 95-114 [facility] Serum or plasma creatine kin ase MB (CKMB)/total creatine kinase (CK) ratio by calculaOrdered By: Govind Anderson on 06-03-2022 CK.MB Calc [Catalytic fraction] 3.1 % 0.00-2.50 [facility] Serum or plasma creatine kin ase MB measurement (mass/volume)Ordered By: Govind Anderson on 06-03-2022 CK.MB [Mass/Vol] 7.7 ng/mL 0.6-6.3 [place] Serum or plasma glucose farida urement (mass/volume)Ordered By: Govind Anderson on 06-03-2022 Glucose [Mass/Vol] 185 mg/dL 70-100 [facility] Comment on above: ADA recommended refe rence rangeRandom Glucose Reference Range is dependent on time and content of last meal. Glucose of more than 200 mg/dL in a nonstressed, ambulatory subject supports the diagnosis of Diabetes Mellitus. Serum or plasma potassium me asurement (moles/volume)Ordered By: Govind Anderson on 06-03-2022 Potassium [Moles/Vol] 3.7 mmol/L 3.5-5.1 [facility] Serum or plasma sodium measu rement (moles/volume)Ordered By: Govind Anderson on 06-03-2022 Sodium [Moles/Vol] 132 mmol/L 136-146 [facility] Serum or plasma total biliru bin measurement (mass/volume)Ordered By: Govind Anderson on 06-03-2022 Bilirubin [Mass/Vol] 0.4 mg/dL 0.3-1.2 [facility] Serum or plasma total carbon dioxide measurement (moles/volume)Ordered By: Govnid Anderson on 06-03-2022 CO2 [Moles/Vol] 23.1 mmol/L 22.0-30.0 [place] Serum or plasma urea nitroge n measurement (mass/volume)Ordered By: Govind Anderson on 06-03-2022 Urea nitrogen [Mass/Vol] 35 mg/dL 9-23 [facility] Troponin I.cardiac [Mass/vol ume] in Serum or Plasma by High sensitivity methodOrdered By: Govind Adnerson on 06-03-2022 Troponin I.cardiac High sensitivity method [Mass/Vol] 44 pg/mL 0-20 [facility] Bacterial blood cultureOrder ed By: Romain Rios on 05-26-2022 Bacteria identified Cx Nom (Bld) NO GROWTH 5 DAYS [facility] No Panel InformationOrdered By: Romain Rios on 05-22-2022 SARS Antigen (LFIA) [facility] Activated partial thrombopla stin time (aPTT) in platelet poor plasma by coagulation aOrdered By: Romain Rios on 05-21-2022 aPTT Coag (PPP) [Time] 38.0 s 25.1-36.5 [facility] Bacterial blood cultureOrder ed By: Romain Rios on 05-21-2022 Bacteria identified Cx Nom (Bld) NO GROWTH 5 DAYS [facility] Basophils Auto (Bld) [#/Vol] Ordered By: Romain Rios on 05-21-2022 Basophils (Bld) [#/Vol] 0.1 10*3/uL 0.0-0.2 [facility] Basophils/100 WBC Auto (Bld) Ordered By: Romain Rios on 05-21-2022 Basophils/100 WBC (Bld) 1.6 % . [facility] Blood hemoglobin measurement (mass/volume)Ordered By: Romain Rios on 05-21-2022 Hemoglobin (Bld) [Mass/Vol] 11.0 g/dL 13.0-17.0 [facility] Blood leukocytes automated c ount (number/volume)Ordered By: Romain Rios on 05-21-2022 WBC (Bld) [#/Vol] 7.6 10*3/uL 4.5-11.0 [facility] COVID-19 SOFIAOrdered By: Dat Rios on 05-21-2022 SARS-CoV+SARS-CoV-2 (COVID-19) Ag IA.rapid Ql (Resp) Negative Negative [facility] Comment on above: This is a duplicate Jenni SARS Antigen (BARAK) result to be used for statistical tracking purpose only. Creatinine and Glomerular fi ltration rate.predicted panel (S/P/Bld)Ordered By: Romain Rios on 05-21-2022 Creatinine [Mass/Vol] 3.25 mg/dL 0.64-1.27 [facility] Eosinophils Auto (Bld) [#/Vo l]Ordered By: Romain Rios on 05-21-2022 Eosinophils (Bld) [#/Vol] 0.1 10*3/uL 0.0-0.45 [facility] Eosinophils/100 WBC Auto (Bl d)Ordered By: Romain Rios on 05-21-2022 Eosinophils/100 WBC (Bld) 1.8 % . [facility] Erythrocyte distribution wid th Auto (RBC) [Ratio]Ordered By: Romain Rios on 05-21-2022 Erythrocyte distribution width (RBC) [Ratio] 12.6 % 12.0-14.8 [facility] Estimated glomerular filtrat ion rate (GFR) non- AmericanOrdered By: Romain Rios on 05-21-2022 GFR/1.73 sq M.predicted among non-blacks MDRD (S/P/Bld) [Vol rate/Area] 22 mL/Min [facility] Hematocrit Auto (Bld) [Volum e fraction]Ordered By: Romain Rios on 05-21-2022 Hematocrit (Bld) [Volume fraction] 31.2 % 38.8-50.0 [facility] Laboratory - CoagulationOrde red By: Romain Rios on 05-21-2022 PT Coag (PPP) [Time] 11.6 s 9.0-12.9 [facility] Laboratory - Hematology and Cell countsOrdered By: Romain Rios on 05-21-2022 Nucleated RBC/100 WBC (Bld) [Ratio] 0.0 % 0-0.5 [facility] Lymphocytes Auto (Bld) [#/Vo l]Ordered By: Romain Rios on 05-21-2022 Lymphocytes (Bld) [#/Vol] 1.3 10*3/uL 1.00-4.8 [facility] Lymphocytes/100 WBC Auto (Bl d)Ordered By: Romain Rios on 05-21-2022 Lymphocytes/100 WBC (Bld) 17.4 % . [facility] MCH Auto (RBC) [Entitic mass ]Ordered By: Romain Rios on 05-21-2022 MCH (RBC) [Entitic mass] 29.6 pg 27.5-35.2 [facility] MCHC Auto (RBC) [Mass/Vol]Or dered By: Romain Rios on 05-21-2022 MCHC (RBC) [Mass/Vol] 35.1 g/dL 32.5-35.6 [facility] MCV Auto (RBC) [Entitic vol] Ordered By: Romain Rios on 05-21-2022 MCV (RBC) [Entitic vol] 84.3 fL 83.5-101 [facility] Monocytes Auto (Bld) [#/Vol] Ordered By: Romain Rios on 05-21-2022 Monocytes (Bld) [#/Vol] 0.3 10*3/uL 0.0-0.8 [facility] Monocytes/100 WBC Auto (Bld) Ordered By: Romain Rios on 05-21-2022 Monocytes/100 WBC (Bld) 4.5 % . [facility] Neutrophils Auto (Bld) [#/Vo l]Ordered By: Romain Rios on 05-21-2022 Neutrophils (Bld) [#/Vol] 5.7 10*3/uL 1.8-7.7 [facility] Neutrophils/100 WBC Auto (Bl d)Ordered By: Romain Rios on 05-21-2022 Neutrophils/100 WBC (Bld) 74.7 % . [facility] No Panel InformationOrdered By: Romain Rios on 05-21-2022 Estimated GFR () 26 mL/Min [facility] Comment on above: GFR estimated refere nce range: According to KDOQI guidelines, <60 ml/min/1.73m2 is sufficient to diagnose a patient with chronic kidney disease. Pharmacy Creatinine Clearance (Chem 32.57 [facility] SARS Antigen (LFIA) [facility] Phosphate [Mass/volume] in S gretta or PlasmaOrdered By: Romain Rios on 05-21-2022 Phosphate [Mass/Vol] 4.4 mg/dL 2.5-4.6 [facility] Platelet mean volume Auto (B ld) [Entitic vol]Ordered By: Romain Rios on 05-21-2022 Platelet mean volume (Bld) [Entitic vol] 8.4 fL 6.6-10.1 [facility] Platelet poor plasma interna tional normalized ratio (INR) by coagulation assay (relatOrdered By: Romain Rios on 05-21-2022 INR Coag (PPP) [Relative time] 1.0 {INR} [facility] Comment on above: INR Therapeutic Rang [...] Platelets Auto (Bld) [#/Vol] Ordered By: Romain Rios on 05-21-2022 Platelets (Bld) [#/Vol] 216 10*3/uL 150-450 [facility] RBC Auto (Bld) [#/Vol]Ordere d By: Romain Rios on 05-21-2022 RBC (Bld) [#/Vol] 3.71 10*6/uL 3.90-5.60 [facility] Serum or plasma anion gap de terminationOrdered By: Romain Rios on 05-21-2022 Anion gap [Moles/Vol] 13.4 mmol/L 6.0-15.0 [facility] Serum or plasma calcium farida urement (mass/volume)Ordered By: Romain Rios on 05-21-2022 Calcium [Mass/Vol] 8.3 mg/dL 8.2-10.2 [facility] Serum or plasma chloride trina surement (moles/volume)Ordered By: Romain Rios on 05-21-2022 Chloride [Moles/Vol] 99 mmol/L 95-114 [facility] Serum or plasma glucose farida urement (mass/volume)Ordered By: Romain Rios on 05-21-2022 Glucose [Mass/Vol] 396 mg/dL 70-100 [facility] Comment on above: ADA recommended refe rence rangeRandom Glucose Reference Range is dependent on time and content of last meal. Glucose of more than 200 mg/dL in a nonstressed, ambulatory subject supports the diagnosis of Diabetes Mellitus. Serum or plasma potassium me asurement (moles/volume)Ordered By: Romain Rios on 05-21-2022 Potassium [Moles/Vol] 3.3 mmol/L 3.5-5.1 [facility] Serum or plasma sodium measu rement (moles/volume)Ordered By: Romain Rios on 05-21-2022 Sodium [Moles/Vol] 132 mmol/L 136-146 [facility] Serum or plasma total biliru bin measurement (mass/volume)Ordered By: Romain Rios on 05-21-2022 Bilirubin [Mass/Vol] 0.4 mg/dL 0.3-1.2 [facility] Serum or plasma total carbon dioxide measurement (moles/volume)Ordered By: Romain Rios on 05-21-2022 CO2 [Moles/Vol] 22.9 mmol/L 22.0-30.0 [place] Serum or plasma urea nitroge n measurement (mass/volume)Ordered By: Romain Rios on 05-21-2022 Urea nitrogen [Mass/Vol] 36 mg/dL 9-23 [facility] Serum or plasma uric acid me asurement (mass/volume)Ordered By: Romain Rios on 05-21-2022 Urate [Mass/Vol] 6.1 mg/dL 2.6-7.2 [place] Troponin I.cardiac [Mass/vol ume] in Serum or Plasma by High sensitivity methodOrdered By: Romain Rios on 05-21-2022 Troponin I.cardiac High sensitivity method [Mass/Vol] 49 pg/mL 0-20 [facility] Urine lactic acid measuremen tOrdered By: Romain Rios on 05-21-2022 Lactate (U) [Moles/Vol] 0.7 mmol/L 0.5-2.2 [facility] Activated partial thrombopla stin time (aPTT) in platelet poor plasma by coagulation aOrdered By: Jorje Small on 05-18-2022 aPTT Coag (PPP) [Time] 38.8 s 25.1-36.5 [facility] Basophils Auto (Bld) [#/Vol] Ordered By: Jorje Small on 05-18-2022 Basophils (Bld) [#/Vol] 0.1 10*3/uL 0.0-0.2 [facility] Basophils/100 WBC Auto (Bld) Ordered By: Jorje Small on 05-18-2022 Basophils/100 WBC (Bld) 1.7 % . [facility] Blood hemoglobin measurement (mass/volume)Ordered By: Jorje Small on 05-18-2022 Hemoglobin (Bld) [Mass/Vol] 10.6 g/dL 13.0-17.0 [facility] Blood leukocytes automated c ount (number/volume)Ordered By: Jorje Small on 05-18-2022 WBC (Bld) [#/Vol] 7.6 10*3/uL 4.5-11.0 [facility] Eosinophils Auto (Bld) [#/Vo l]Ordered By: Jorje Small on 05-18-2022 Eosinophils (Bld) [#/Vol] 0.1 10*3/uL 0.0-0.45 [facility] Eosinophils/100 WBC Auto (Bl d)Ordered By: Jorje Small on 05-18-2022 Eosinophils/100 WBC (Bld) 1.7 % . [facility] Erythrocyte distribution wid th Auto (RBC) [Ratio]Ordered By: Jorje Small on 05-18-2022 Erythrocyte distribution width (RBC) [Ratio] 12.9 % 12.0-14.8 [facility] Hematocrit Auto (Bld) [Volum e fraction]Ordered By: Jorje Small on 05-18-2022 Hematocrit (Bld) [Volume fraction] 30.6 % 38.8-50.0 [facility] Laboratory - CoagulationOrde red By: Jorje Small on 05-18-2022 PT Coag (PPP) [Time] 11.7 s 9.0-12.9 [facility] Laboratory - Hematology and Cell countsOrdered By: Jorje Small on 05-18-2022 Nucleated RBC/100 WBC (Bld) [Ratio] 0.1 % 0-0.5 [facility] Lymphocytes Auto (Bld) [#/Vo l]Ordered By: Jorje Small on 05-18-2022 Lymphocytes (Bld) [#/Vol] 1.0 10*3/uL 1.00-4.8 [facility] Lymphocytes/100 WBC Auto (Bl d)Ordered By: Jorje Small on 05-18-2022 Lymphocytes/100 WBC (Bld) 13.8 % . [facility] MCH Auto (RBC) [Entitic mass ]Ordered By: Jorje Small on 05-18-2022 MCH (RBC) [Entitic mass] 29.5 pg 27.5-35.2 [facility] MCHC Auto (RBC) [Mass/Vol]Or dered By: Jorje Small on 05-18-2022 MCHC (RBC) [Mass/Vol] 34.5 g/dL 32.5-35.6 [facility] MCV Auto (RBC) [Entitic vol] Ordered By: Jorje Small on 05-18-2022 MCV (RBC) [Entitic vol] 85.5 fL 83.5-101 [facility] Monocytes Auto (Bld) [#/Vol] Ordered By: Jorje Small on 05-18-2022 Monocytes (Bld) [#/Vol] 0.3 10*3/uL 0.0-0.8 [facility] Monocytes/100 WBC Auto (Bld) Ordered By: Jorje Small on 05-18-2022 Monocytes/100 WBC (Bld) 4.5 % . [facility] Neutrophils Auto (Bld) [#/Vo l]Ordered By: Jorje Small on 05-18-2022 Neutrophils (Bld) [#/Vol] 5.9 10*3/uL 1.8-7.7 [facility] Neutrophils/100 WBC Auto (Bl d)Ordered By: Jorje Small on 05-18-2022 Neutrophils/100 WBC (Bld) 78.3 % . [facility] Platelet mean volume Auto (B ld) [Entitic vol]Ordered By: Jorje Small on 05-18-2022 Platelet mean volume (Bld) [Entitic vol] 9.0 fL 6.6-10.1 [facility] Platelet poor plasma interna tional normalized ratio (INR) by coagulation assay (relatOrdered By: Jorje Small on 05-18-2022 INR Coag (PPP) [Relative time] 1.0 {INR} [facility] Comment on above: INR Therapeutic Rang [...] 05-18-2022 Platelets (Bld) [#/Vol] 215 10*3/uL 150-450 [facility] RBC Auto (Bld) [#/Vol]Ordere d By: Jorje Small on 05-18-2022 RBC (Bld) [#/Vol] 3.58 10*6/uL 3.90-5.60 [facility] Albumin [Mass/volume] in Ser um or PlasmaOrdered By: Angel Mejía on 04-20-2022 Albumin [Mass/Vol] 2.5 g/dL 2.9-4.4 [facility] Albumin/Protein.total in 24 hour Urine by ElectrophoresisOrdered By: Angel Mejía on 04-20-2022 Albumin Elph (24H U) [Mass fraction] 78.6 % . [facility] Blood hemoglobin measurement (mass/volume)Ordered By: Angel Mejía on 04-20-2022 Hemoglobin (Bld) [Mass/Vol] 9.5 g/dL 13.0-17.0 [facility] Body fluid albumin measureme nt (mass/volume)Ordered By: Angel Mejía on 04-20-2022 Albumin (Body fld) [Mass/Vol] 2.2 g/dL 3.2-5.[address] [facility] [address] biopsyOrdered By: Varsha ricardo on 04-20-2022 CT biopsy See comment [id number] [facility] Comment on above: TESTING SENT TO [facility] ORP SEE REPORT TESTING SENT TO LAB ORPSEE REPORT Creatinine [Mass/volume] in UrineOrdered By: Angel Mejía on 04-20-2022 Creatinine (U) [Mass/Vol] 160.7 mg/dL [facility] Comment on above: No reference range e stablished Creatinine and Glomerular fi ltration rate.predicted panel (S/P/Bld)Ordered By: Angel Mejía on 04-20-2022 Creatinine [Mass/Vol] 3.18 mg/dL 0.64-1.27 [facility] Erythrocyte distribution wid th Auto (RBC) [Ratio]Ordered By: Angel Mejía on 04-20-2022 Erythrocyte distribution width (RBC) [Ratio] 13.1 % 12.0-14.8 [facility] Estimated glomerular filtrat ion rate (GFR) non- AmericanOrdered By: Angel Mejía on 04-20-2022 GFR/1.73 sq M.predicted among non-blacks MDRD (S/P/Bld) [Vol rate/Area] 22 mL/Min [facility] Ferritin [Mass/volume] in Se rum or PlasmaOrdered By: Angel Mejía on 04-20-2022 Ferritin [Mass/Vol] 119.5 ng/mL 23.9-336.2 [facility] Gamma globulin/Protein.total in 24 hour Urine by ElectrophoresisOrdered By: Angel Mejía on 04-20-2022 Gamma globulin Elph (24H U) [Mass fraction] 8.7 % . [place] Hematocrit Auto (Bld) [Volum e fraction]Ordered By: Angel Mejía on 04-20-2022 Hematocrit (Bld) [Volume fraction] 27.1 % 38.8-50.0 [facility] IgA [Mass/volume] in Serum o r PlasmaOrdered By: Angel Mejía on 04-20-2022 IgA [Mass/Vol] 310 mg/dL 90-386 [facility] IgG [Mass/volume] in Serum o r PlasmaOrdered By: Angel Mejía on 04-20-2022 IgG [Mass/Vol] 821 mg/dL 603-1613 [facility] IgM [Mass/volume] in Serum o r PlasmaOrdered By: Angel Mejía on 04-20-2022 IgM [Mass/Vol] 211 mg/dL 20-172 [facility] Comment on above: Performed at: [address] [id number] Vehicle Care Specialist: Pablito Alexander PhD, Phone: [phone] Performed at: [facility] [address] [id number] Director: Pablito Alexander PhD, Phone: [phone] Immunofixation for UrineOrde red By: Angel Mejía on 04-20-2022 Interpretation Immunofixation (U) [Interp] See comment . [facility] Comment on above: Immunofixation shows IgG monoclonal protein with kappa light chain specificity. Performed at: [facility] [id number] Vehicle Care Specialist: Pablito Alexander PhD, Phone: [phone] Immunofixation shows IgG monoclonal protein with kappalight chain specificity.Performed at: [facility] [address] [id number] Director: Pablito Alexander PhD, Phone: [phone] Immunoglobulin light chains. kappa.free [Mass/volume] in SerumOrdered By: Angel Mejía on 04-20-2022 Immunoglobulin light chains.kappa.free (S) [Mass/Vol] 112.0 mg/L 3.3-19.4 [facility] Immunoglobulin light chains. kappa.free/Immunoglobulin light chains.lambda.free [MassOrdered By: Angel Mejía on 04-20-2022 Immunoglobulin light chains.kappa.free/Immun oglobulin light chains.lambda.free (S) [Mass ratio] 1.83 0.26-1.65 [facility] Comment on above: Performed at: [facility] [address] [id number] Vehicle Care Specialist: Pablito Alexander PhD, Phone: [phone] Performed at: [facility] [address] [id number] Director: Pablito Alexander PhD, Phone: [phone] Immunoglobulin light chains. lambda.free [Mass/volume] in Serum or PlasmaOrdered By: Angel Joyce on 04-20-2022 Immunoglobulin light chains.lambda.free [Mass/Vol] 61.3 mg/L 5.7-26.3 [facility] Iron [Mass/volume] in Serum or PlasmaOrdered By: Angel Mejía on 04-20-2022 Iron [Mass/Vol] 44 ug/dL 40-160 [facility] Iron binding capacity [Mass/ volume] in Serum or PlasmaOrdered By: Angel Mejía on 04-20-2022 Iron binding capacity [Mass/Vol] [facility] Comment on above: Test not performed Iron saturation [Mass Fracti on] in Serum or PlasmaOrdered By: Angel Mejía on 04-20-2022 Iron saturation [Mass fraction] [facility] Comment on above: Test not performed Laboratory - Chemistry and C hemistry - challengeOrdered By: Angel Mejía on 04-20-2022 Magnesium [Mass/Vol] 1.9 mg/dL 1.6-2.6 [facility] MCH Auto (RBC) [Entitic mass ]Ordered By: Angel Mejía on 04-20-2022 MCH (RBC) [Entitic mass] 30.0 pg 27.5-35.2 [facility] MCHC Auto (RBC) [Mass/Vol]Or dered By: Angel Mejía on 04-20-2022 MCHC (RBC) [Mass/Vol] 34.9 g/dL 32.5-35.6 [facility] MCV Auto (RBC) [Entitic vol] Ordered By: Angel Mejía on 04-20-2022 MCV (RBC) [Entitic vol] 86.0 fL 83.5-101 [facility] No Panel InformationOrdered By: Angel Mejía on 04-20-2022 Estimated GFR () 27 mL/Min [facility] Comment on above: GFR estimated refere nce range: According to KDOQI guidelines, <60 ml/min/1.73m2 is sufficient to diagnose a patient with chronic kidney disease. Pharmacy Creatinine Clearance (Chem N/A [facility] Protein Electrophoresis [facility] Comment: g/dL Not Observed [facility] Comment on above: SPE shows asymmetric al gamma. Protein Electrophoresis Note See comment . [facility] Comment on above: Protein electrophore sis scan will follow via computer, mail, or audiovisual tech delivery. Performed at: [facility] [place] [id number] Vehicle Care Specialist: Pablito Alexander PhD, Phone: [phone] Protein electrophore sis scan will follow via computer,mail, or audiovisual tech delivery.Performed at: [address] [id number] Director: Pablito Alexander PhD, Phone: [phone] Serum Immunofixation Comment: . [facility] Comment on above: Presence of monoclon al protein is unclear at this time. Suggest repeat in 3 to 6 months if clinically indicated. Presence of monoclon al protein is unclear at this time. Suggestrepeat in 3 to 6 months if clinically indicated. Miscellaneous Test See comment [facility] Comment on above: See report. Scanned copy available in EMR. Urine Random Prot Electrophor Note See comment . [facility] Comment on above: Protein electrophore sis scan will follow via computer, mail, or audiovisual tech delivery. Performed at: [address] [id number] Vehicle Care Specialist: Pablito Alexander PhD, Phone: [phone] Protein electrophore sis scan will follow via computer,mail, or audiovisual tech delivery.Performed at: [facility] [id number] Director: Pablito Alexander PhD, Phone: [phone] Phosphate [Mass/volume] in S gretat or PlasmaOrdered By: Angel Mejía on 04-20-2022 Phosphate [Mass/Vol] 5.4 mg/dL 2.5-4.6 [facility] Platelet mean volume Auto (B ld) [Entitic vol]Ordered By: Angel Joyce on 04-20-2022 Platelet mean volume (Bld) [Entitic vol] 8.5 fL 6.6-10.1 [facility] Platelets Auto (Bld) [#/Vol] Ordered By: Angel Mejía on 04-20-2022 Platelets (Bld) [#/Vol] 252 10*3/uL 150-450 [facility] Protein [Mass/volume] in Ser um or PlasmaOrdered By: Angel Mejía on 04-20-2022 Protein [Mass/Vol] 5.5 g/dL 6.0-8.5 [facility] Protein [Mass/volume] in Uri neOrdered By: Angel Mejía on 04-20-2022 Protein (U) [Mass/Vol] 840 mg/dL 0-9 [facility] Protein (U) [Mass/Vol] 976.2 mg/dL Not Estab. [facility] Comment on above: Results confirmed on dilution. Results confirmed on dilution. Protein.monoclonal/Protein.t otal in 24 hour Urine by ElectrophoresisOrdered By: Angel Mejía on 04-20-2022 Protein.monoclonal Elph (24H U) [Mass fraction] Not observed % Not Observed [place] RBC Auto (Bld) [#/Vol]Ordere d By: Angel Mejía on 04-20-2022 RBC (Bld) [#/Vol] 3.16 10*6/uL 3.90-5.60 [facility] Serum globulin measurement ( mass/volume)Ordered By: Angel Mejía on 04-20-2022 Globulin (S) [Mass/Vol] 3.0 g/dL 2.2-3.9 [facility] Serum or plasma albumin/glob ulin mass ratioOrdered By: Angel Mejía on 04-20-2022 Albumin/Globulin [Mass ratio] 0.8 {ratio} 0.7-1.7 [facility] Serum or plasma alpha 1 glob ulin measurement by electrophoresis (mass/volume)Ordered By: Angel Mejía on 04-20-2022 Alpha 1 globulin Elph [Mass/Vol] 0.3 g/dL 0.0-0.4 [facility] Serum or plasma alpha 2 glob ulin measurement by electrophoresis (mass/volume)Ordered By: Angel Cortezdir on 04-20-2022 Alpha 2 globulin Elph [Mass/Vol] 1.0 g/dL 0.4-1.0 [facility] Serum or plasma anion gap de terminationOrdered By: Angel Mejía on 04-20-2022 Anion gap [Moles/Vol] 14.6 mmol/L 6.0-15.0 [facility] Serum or plasma beta globuli n measurement by electrophoresis (mass/volume)Ordered By: Angel Mejía on 04-20-2022 Beta globulin Elph [Mass/Vol] 0.8 g/dL 0.7-1.3 [facility] Serum or plasma calcium farida urement (mass/volume)Ordered By: Angel Mejía on 04-20-2022 Calcium [Mass/Vol] 8.2 mg/dL 8.2-10.2 [facility] Serum or plasma chloride trina surement (moles/volume)Ordered By: Angel Mejía on 04-20-2022 Chloride [Moles/Vol] 102 mmol/L 95-114 [facility] Serum or plasma gamma globul in measurement by electrophoresis (mass/volume)Ordered By: Angel Mejía on 04-20-2022 Gamma globulin Elph [Mass/Vol] 0.9 g/dL 0.4-1.8 [facility] Serum or plasma glucose farida urement (mass/volume)Ordered By: Angel Mejía on 04-20-2022 Glucose [Mass/Vol] 211 mg/dL 70-100 [facility] Comment on above: ADA recommended refe [...] on 04-20-2022 Potassium [Moles/Vol] 4.0 mmol/L 3.5-5.1 [facility] Serum or plasma sodium measu rement (moles/volume)Ordered By: Angel Mejía on 04-20-2022 Sodium [Moles/Vol] 134 mmol/L 136-146 [facility] Serum or plasma total carbon dioxide measurement (moles/volume)Ordered By: Angel Mejía on 04-20-2022 CO2 [Moles/Vol] 21.4 mmol/L 22.0-30.0 [place] Serum or plasma urea nitroge n measurement (mass/volume)Ordered By: Angel Mejía on 04-20-2022 Urea nitrogen [Mass/Vol] 31 mg/dL 9 [facility] Urine alpha 1 globulin/total protein by electrophoresisOrdered By: Angel Mejía on 04-20-2022 Alpha 1 globulin Elph (U) [Mass fraction] 0.4 % . [facility] Urine alpha 2 globulin/total protein ratio by electrophoresisOrdered By: Angel Mejía on 04-20-2022 Alpha 2 globulin Elph (U) [Mass fraction] 3.8 % . [facility] Urine beta globulin measurem ent by electrophoresis (mass/volume)Ordered By: Angel Mejía on 04-20-2022 Beta globulin Elph (U) [Mass/Vol] 8.6 % . [facility] Urine protein/creatinine rat ioOrdered By: Angel Mejía on 04-20-2022 Protein/Creatinine (U) [Ratio] 5227 mg/g{Cre} 0-200 [facility] WBC Auto (Bld) [#/Vol]Ordere d By: Angel Mejía on 04-20-2022 WBC (Bld) [#/Vol] 7.7 10*3/uL 4.1-10.5 [facility] Troponin I.cardiac [Mass/vol ume] in Serum or Plasma by High sensitivity methodOrdered By: Hector Mann on 04-10-2022 Troponin I.cardiac High sensitivity method [Mass/Vol] 31 pg/mL 0-20 [facility] Activated partial thrombopla stin time (aPTT) in platelet poor plasma by coagulation aOrdered By: Hector Mann on 04-09-2022 aPTT Coag (PPP) [Time] 41.2 s 25.1-36.5 [facility] Basophils Auto (Bld) [#/Vol] Ordered By: Hector Mann on 04-09-2022 Basophils (Bld) [#/Vol] 0.1 10*3/uL 0.0-0.2 [facility] Basophils/100 WBC Auto (Bld) Ordered By: Hector Mann on 04-09-2022 Basophils/100 WBC (Bld) 1.8 % . [facility] Blood hemoglobin measurement (mass/volume)Ordered By: Hector Mann on 04-09-2022 Hemoglobin (Bld) [Mass/Vol] 9.0 g/dL 13.0-17.0 [facility] Blood leukocytes automated c ount (number/volume)Ordered By: Hector Mann on 04-09-2022 WBC (Bld) [#/Vol] 7.1 10*3/uL 4.5-11.0 [facility] Creatinine and Glomerular fi ltration rate.predicted panel (S/P/Bld)Ordered By: Hector Mann on 04-09-2022 Creatinine [Mass/Vol] 2.63 mg/dL 0.64-1.27 [facility] Eosinophils Auto (Bld) [#/Vo l]Ordered By: Hector Mann on 04-09-2022 Eosinophils (Bld) [#/Vol] 0.2 10*3/uL 0.0-0.45 [facility] Eosinophils/100 WBC Auto (Bl d)Ordered By: Hector Mann on 04-09-2022 Eosinophils/100 WBC (Bld) 2.4 % . [facility] Erythrocyte distribution wid th Auto (RBC) [Ratio]Ordered By: Hector Mann on 04-09-2022 Erythrocyte distribution width (RBC) [Ratio] 13.5 % 12.0-14.8 [facility] Estimated glomerular filtrat ion rate (GFR) non- AmericanOrdered By: Hector Mann on 04-09-2022 GFR/1.73 sq M.predicted among non-blacks MDRD (S/P/Bld) [Vol rate/Area] 28 mL/Min [facility] Hematocrit Auto (Bld) [Volum e fraction]Ordered By: Hector Mann on 04-09-2022 Hematocrit (Bld) [Volume fraction] 25.8 % 38.8-50.0 [facility] Laboratory - Chemistry and C hemistry - challengeOrdered By: Hector Mann on 04-09-2022 Natriuretic peptide B (Bld) [Mass/Vol] 808.0 pg/mL 5-100 [facility] Laboratory - CoagulationOrde red By: Hector Mann on 04-09-2022 PT Coag (PPP) [Time] 12.2 s 9.0-12.9 [facility] Laboratory - Hematology and Cell countsOrdered By: Hector Mann on 04-09-2022 Nucleated RBC/100 WBC (Bld) [Ratio] 0.0 % 0-0.5 [facility] Lymphocytes Auto (Bld) [#/Vo l]Ordered By: Hector Mann on 04-09-2022 Lymphocytes (Bld) [#/Vol] 1.6 10*3/uL 1.00-4.8 [facility] Lymphocytes/100 WBC Auto (Bl d)Ordered By: Hector Mann on 04-09-2022 Lymphocytes/100 WBC (Bld) 21.8 % . [facility] MCH Auto (RBC) [Entitic mass ]Ordered By: Hector Mann on 04-09-2022 MCH (RBC) [Entitic mass] 30.0 pg 27.5-35.2 [facility] MCHC Auto (RBC) [Mass/Vol]Or dered By: Hector Mann on 04-09-2022 MCHC (RBC) [Mass/Vol] 34.9 g/dL 32.5-35.6 [facility] MCV Auto (RBC) [Entitic vol] Ordered By: Hector Mann on 04-09-2022 MCV (RBC) [Entitic vol] 86.0 fL 83.5-101 [facility] Monocytes Auto (Bld) [#/Vol] Ordered By: Hector Mann on 04-09-2022 Monocytes (Bld) [#/Vol] 0.3 10*3/uL 0.0-0.8 [facility] Monocytes/100 WBC Auto (Bld) Ordered By: Hector Mann on 04-09-2022 Monocytes/100 WBC (Bld) 4.5 % . [facility] Neutrophils Auto (Bld) [#/Vo l]Ordered By: Hector Mann on 04-09-2022 Neutrophils (Bld) [#/Vol] 4.9 10*3/uL 1.8-7.7 [facility] Neutrophils/100 WBC Auto (Bl d)Ordered By: Hector Mann on 08-22-2022 Neutrophils/100 WBC (Bld) 69.5 % . [facility] No Panel InformationOrdered By: Hector Mann on 04-09-2022 Estimated GFR () 33 mL/Min [facility] Comment on above: GFR estimated refere nce range: According to KDOQI guidelines, <60 ml/min/1.73m2 is sufficient to diagnose a patient with chronic kidney disease. Pharmacy Creatinine Clearance (Chem 41.94 [facility] Platelet mean volume Auto (B ld) [Entitic vol]Ordered By: Hector Mann on 04-09-2022 Platelet mean volume (Bld) [Entitic vol] 7.9 fL 6.6-10.1 [facility] Platelet poor plasma interna tional normalized ratio (INR) by coagulation assay (relatOrdered By: Hector Mann on 04-09-2022 INR Coag (PPP) [Relative time] 1.1 {INR} [facility] Comment on above: INR Therapeutic Rang [...] 04-09-2022 Platelets (Bld) [#/Vol] 215 10*3/uL 150-450 [facility] RBC Auto (Bld) [#/Vol]Ordere d By: Hector Mann on 04-09-2022 RBC (Bld) [#/Vol] 3.00 10*6/uL 3.90-5.60 [facility] Serum or plasma calcium farida urement (mass/volume)Ordered By: Hector Mann on 04-09-2022 Calcium [Mass/Vol] 8.0 mg/dL 8.2-10.2 [facility] Serum or plasma chloride trina surement (moles/volume)Ordered By: Hector Mann on 04-09-2022 Chloride [Moles/Vol] 104 mmol/L 95-114 [facility] Serum or plasma glucose farida urement (mass/volume)Ordered By: Hector Mann on 04-09-2022 Glucose [Mass/Vol] 236 mg/dL 70-100 [facility] Comment on above: ADA recommended refe [...] on 04-09-2022 Potassium [Moles/Vol] 3.7 mmol/L 3.5-5.1 [facility] Serum or plasma sodium measu rement (moles/volume)Ordered By: Hector Mann on 04-09-2022 Sodium [Moles/Vol] 134 mmol/L 136-146 [facility] Serum or plasma total carbon dioxide measurement (moles/volume)Ordered By: Hector Mann on 04-09-2022 CO2 [Moles/Vol] 21.8 mmol/L 22.0-30.0 [place] Serum or plasma urea nitroge n measurement (mass/volume)Ordered By: Hector Mann on 04-09-2022 Urea nitrogen [Mass/Vol] 31 mg/dL 9-23 [facility] Automated erythrocytes count in urine sediment (number/area)Ordered By: Angel Mejía on 03-13-2022 RBC Auto (Urine sed) [#/Area] 20-49 [HPF] 0-4 [facility] Automated leukocytes count i n urine sediment (number/area)Ordered By: Angel Mejía on 03-13-2022 WBC Auto (Urine sed) [#/Area] 1-2 [HPF] 0-4 [facility] Bilirubin Test strip Ql (U)O rdered By: Angel Mejía on 03-13-2022 Bilirubin Ql (U) Negative Negative [place] Blood hemoglobin measurement (mass/volume)Ordered By: Angel Mejía on 03-13-2022 Hemoglobin (Bld) [Mass/Vol] 9.5 g/dL 13.0-17.0 [facility] Body fluid albumin measureme nt (mass/volume)Ordered By: Angel Mejía on 03-13-2022 Albumin (Body fld) [Mass/Vol] 2.1 g/dL 3.2-5.[address] [facility] [address] biopsyOrdered By: Varsha ricardo on 03-13-2022 Transferrin [Mass/Vol] 140 mg/dL 180-380 [facility] Color Auto (U)Ordered By: Ab yusra Mejía on 03-13-2022 Color (U) Yellow Yellow [facility] Creatinine [Mass/volume] in UrineOrdered By: Angel Mejía on 03-13-2022 Creatinine (U) [Mass/Vol] 54.4 mg/dL [facility] Comment on above: No reference range e stablished Creatinine and Glomerular fi ltration rate.predicted panel (S/P/Bld)Ordered By: Angel Mejía on 03-13-2022 Creatinine [Mass/Vol] 3.06 mg/dL 0.64-1.27 [facility] Erythrocyte distribution wid th Auto (RBC) [Ratio]Ordered By: Angel Mejía on 03-13-2022 Erythrocyte distribution width (RBC) [Ratio] 13.4 % 12.0-14.8 [facility] Estimated glomerular filtrat ion rate (GFR) non- AmericanOrdered By: Angel Mejía on 03-13-2022 GFR/1.73 sq M.predicted among non-blacks MDRD (S/P/Bld) [Vol rate/Area] 23 mL/Min [facility] Ferritin [Mass/volume] in Se rum or PlasmaOrdered By: Angel Mejía on 03-13-2022 Ferritin [Mass/Vol] 118.8 ng/mL 23.9-336.2 [facility] Folate [Mass/volume] in Seru m or PlasmaOrdered By: Eusebio Olivares on 03-13-2022 Folate [Mass/Vol] 7.9 ng/mL >5.9 [facility] Comment on above: Folate reference ran ge: >5.9 ng/ml The WHO technical consultation on folate and vitamin b12 deficiencies has determined that folate concentrations less than 4 ng/ml are considered deficient. Folate reference ran ge: >5.9 ng/mlThe WHO technical consultation on folate and vitamin [id number] has determined that folate concentrations lessthan 4 ng/ml are considered deficient. Hematocrit Auto (Bld) [Volum e fraction]Ordered By: Angel Mejía on 03-13-2022 Hematocrit (Bld) [Volume fraction] 27.7 % 38.8-50.0 [facility] Immunoglobulin light chains. kappa.free [Mass/volume] in SerumOrdered By: Angel Mejía on 03-13-2022 Immunoglobulin light chains.kappa.free (S) [Mass/Vol] 124.5 mg/L 3.3-19.4 [facility] Immunoglobulin light chains. kappa.free/Immunoglobulin light chains.lambda.free [MassOrdered By: Angel Mejía on 03-13-2022 Immunoglobulin light chains.kappa.free/Immun oglobulin light chains.lambda.free (S) [Mass ratio] 2.13 0.26-1.65 [facility] Comment on above: Performed at: [facility] [address] [id number] Vehicle Care Specialist: Pablito Alexander PhD, Phone: [phone] Performed at: [facility] [id number] Director: Pablito Alexander PhD, Phone: [phone] Immunoglobulin light chains. lambda.free [Mass/volume] in Serum or PlasmaOrdered By: Angel Mejía on 03-13-2022 Immunoglobulin light chains.lambda.free [Mass/Vol] 58.4 mg/L 5.7-26.3 [facility] Iron [Mass/volume] in Serum or PlasmaOrdered By: Angel Mejía on 03-13-2022 Iron [Mass/Vol] 44 ug/dL 40-160 [facility] Iron binding capacity [Mass/ volume] in Serum or PlasmaOrdered By: Angel Cortezdir on 03-13-2022 Iron binding capacity [Mass/Vol] 196 ug/dL 255-450 [facility] Iron saturation [Mass Fracti on] in Serum or PlasmaOrdered By: Angel Mejía on 03-13-2022 Iron saturation [Mass fraction] 22.0 % 20-50 [facility] Ketones Auto test strip (U) [Mass/Vol]Ordered By: Angel Mejía on 03-13-2022 Ketones (U) [Mass/Vol] Negative Negative Fi [facility] Laboratory - Chemistry and C hemistry - challengeOrdered By: Eusebio Olivares on 03-13-2022 Cobalamin (Vitamin B12) [Mass/Vol] 580 pg/mL 180-914 [facility] Laboratory - Chemistry and C hemistry - challengeOrdered By: Angel Mejía on 03-13-2022 Magnesium [Mass/Vol] 1.9 mg/dL 1.6-2.6 [facility] Laboratory - UrinalysisOrder ed By: Angel Mejía on 03-13-2022 Hyaline casts LM Ql (Urine sed) 0-8 [LPF] 0-8 [facility] MCH Auto (RBC) [Entitic mass ]Ordered By: Angel Mejía on 03-13-2022 MCH (RBC) [Entitic mass] 29.8 pg 27.5-35.2 [facility] MCHC Auto (RBC) [Mass/Vol]Or dered By: Angel Mejía on 03-13-2022 MCHC (RBC) [Mass/Vol] 34.2 g/dL 32.5-35.6 [facility] MCV Auto (RBC) [Entitic vol] Ordered By: Angel Mejía on 03-13-2022 MCV (RBC) [Entitic vol] 87.3 fL 83.5-101 F [facility] Nitrite Test strip Ql (U)Ord ered By: Angel Mejía on 03-13-2022 Nitrite Ql (U) Negative Negative [facility] No Panel InformationOrdered By: Angel Mejía on 03-13-2022 25-Hydroxy Vitamin D Total < 7.0 ng/mL 30-100 [facility] Comment on above: VITAMIN D STATUS [...] 2010; 96(7):1911-30. Estimated GFR () 28 mL/Min [facility] Comment on above: GFR estimated refere nce range: According to KDOQI guidelines, <60 ml/min/1.73m2 is sufficient to diagnose a patient with chronic kidney disease. Pharmacy Creatinine Clearance (Chem N/A [facility] Phosphate [Mass/volume] in S gretta or PlasmaOrdered By: Angel Mejía on 03-13-2022 Phosphate [Mass/Vol] 4.5 mg/dL 2.5-4.6 [facility] Platelet mean volume Auto (B ld) [Entitic vol]Ordered By: Angel Mejía on 03-13-2022 Platelet mean volume (Bld) [Entitic vol] 8.5 fL 6.6-10.1 [facility] Platelets Auto (Bld) [#/Vol] Ordered By: Angel Mejía on 03-13-2022 Platelets (Bld) [#/Vol] 232 10*3/uL 150-450 [facility] Protein Auto test strip (U) [Mass/Vol]Ordered By: Angel Mejía on 03-13-2022 Protein (U) [Mass/Vol] 300 mg/dL Negative Fi [facility] Protein [Mass/volume] in Uri neOrdered By: Angel Mejía on 03-13-2022 Protein (U) [Mass/Vol] 408 mg/dL 0-9 [facility] RBC Auto (Bld) [#/Vol]Ordere d By: Angel Mejía on 03-13-2022 RBC (Bld) [#/Vol] 3.17 10*6/uL 3.90-5.60 [facility] Serum or plasma calcium farida urement (mass/volume)Ordered By: Angel Mejía on 03-13-2022 Calcium [Mass/Vol] 8.4 mg/dL 8.2-10.2 [facility] Serum or plasma chloride trina surement (moles/volume)Ordered By: Angel Mejía on 03-13-2022 Chloride [Moles/Vol] 105 mmol/L 95-114 [facility] Serum or plasma glucose farida urement (mass/volume)Ordered By: Angel Mejía on 03-13-2022 Glucose [Mass/Vol] 163 mg/dL 70-100 [facility] Comment on above: ADA recommended refe [...] on 03-13-2022 Parathyrin.intact [Mass/Vol] 164.8 pg/mL 12-88 [facility] Serum or plasma methylmalona te measurement (moles/volume)Ordered By: Eusebio Olivares on 03-13-2022 Methylmalonate [Moles/Vol] 2205 nmol/L 0-378 [facility] Comment on above: This test was develo ped and its performance characteristics determined by [facility]. It has not been cleared or approved by the Food and Drug Administration. Performed at: [address] [id number] Vehicle Care Specialist: Saulo Araujo MD, Phone: [phone] This test was develo ped and its performance characteristicsdetermined by [facility]. It has not been cleared orapproved by the Food and Drug Administration.Performed at: [address] [id number] Director: Saulo Araujo MD, Phone: [phone] Serum or plasma potassium me asurement (moles/volume)Ordered By: Angel Mejía on 03-13-2022 Potassium [Moles/Vol] 4.9 mmol/L 3.5-5.1 [facility] Serum or plasma sodium measu rement (moles/volume)Ordered By: Angel Mejía on 03-13-2022 Sodium [Moles/Vol] 135 mmol/L 136-146 [facility] Serum or plasma total carbon dioxide measurement (moles/volume)Ordered By: Angel Mejía on 03-13-2022 CO2 [Moles/Vol] 24.2 mmol/L 22.0-30.0 [place] Serum or plasma urea nitroge n measurement (mass/volume)Ordered By: Angel Mejía on 03-13-2022 Urea nitrogen [Mass/Vol] 37 mg/dL 9-23 [facility] Serum or plasma uric acid me asurement (mass/volume)Ordered By: Angel Mejía on 03-13-2022 Urate [Mass/Vol] 5.8 mg/dL 2.6-7.2 [place] Specific gravity Auto test s trip (U) [Rel density]Ordered By: Angel Mejía on 03-13-2022 Specific gravity (U) [Rel density] 1.012 1.001-1.030 [facility] Squamous epithelial cells de tection in urine sediment by light microscopyOrdered By: Angel Mejía on 03-13-2022 Epithelial cells.squamous LM Ql (Urine sed) 0-1 [HPF] 0-2 [facility] Urine bacteria detection by automated methodOrdered By: Angel Mejía on 03-13-2022 Bacteria Auto Ql (U) None seen None Seen [facility] Urine clarity by refractomet ry automatedOrdered By: Angel Mejía on 03-13-2022 Clarity Refractometry automated (U) Clear Clear [facility] Urine glucose measurement by automated test strip (mass/volume)Ordered By: Angel Mejía on 03-13-2022 Glucose Auto test strip (U) [Mass/Vol] 500 mg/dL Normal [facility] Urine hemoglobin detection b y automated test stripOrdered By: Angel Mejía on 03-13-2022 Hemoglobin Auto test strip Ql (U) 1+ Negative [facility] Urine leukocyte esterase det ection by automated test stripOrdered By: Angel Mejía on 03-13-2022 Leukocyte esterase Auto test strip Ql (U) Negative Negative [facility] Urine protein/creatinine rat ioOrdered By: Angel Mejía on 03-13-2022 Protein/Creatinine (U) [Ratio] 7500 mg/g{Cre} 0-200 [facility] Urobilinogen Auto test strip (U) [Mass/Vol]Ordered By: Angel Mejía on 03-13-2022 Urobilinogen (U) [Mass/Vol] Normal mg/dL Normal [facility] WBC Auto (Bld) [#/Vol]Ordere d By: Angel Mejía on 03-13-2022 WBC (Bld) [#/Vol] 7.6 10*3/uL 4.1-10.5 [facility] pH Auto test strip (U)Ordere d By: Angel Mejía on 03-13-2022 pH (U) 6.0 [pH] 5.0-9.0 [facility] Basophils Auto (Bld) [#/Vol] Ordered By: Eusebio Olivares on 03-09-2022 Basophils (Bld) [#/Vol] 0.1 10*3/uL 0.0-0.2 [facility] Basophils/100 WBC Auto (Bld) Ordered By: Eusebio Olivares on 03-09-2022 Basophils/100 WBC (Bld) 1.4 % . F [facility] Blood hemoglobin measurement (mass/volume)Ordered By: Eusebio Olivares on 03-09-2022 Hemoglobin (Bld) [Mass/Vol] 9.4 g/dL 13.0-17.0 [facility] Blood leukocytes automated c ount (number/volume)Ordered By: Eusebio Olivares on 03-09-2022 WBC (Bld) [#/Vol] 6.4 10*3/uL 4.5-11.0 [facility] Creatinine and Glomerular fi ltration rate.predicted panel (S/P/Bld)Ordered By: Eusebio Olivares on 03-09-2022 Creatinine [Mass/Vol] 2.87 mg/dL 0.64-1.27 [facility] Eosinophils Auto (Bld) [#/Vo l]Ordered By: Eusebio Olivares on 03-09-2022 Eosinophils (Bld) [#/Vol] 0.1 10*3/uL 0.0-0.45 [facility] Eosinophils/100 WBC Auto (Bl d)Ordered By: Eusebio Olivares on 03-09-2022 Eosinophils/100 WBC (Bld) 2.2 % . [facility] Erythrocyte distribution wid th Auto (RBC) [Ratio]Ordered By: Eusebio Olivares on 03-09-2022 Erythrocyte distribution width (RBC) [Ratio] 13.5 % 12.0-14.8 [facility] Estimated glomerular filtrat ion rate (GFR) non- AmericanOrdered By: Eusebio Olivares on 03-09-2022 GFR/1.73 sq M.predicted among non-blacks MDRD (S/P/Bld) [Vol rate/Area] 25 mL/Min [facility] Glucose mean value [Mass/vol ume] in Blood Estimated from glycated hemoglobinOrdered By: Eusebio Olivares on 03-09-2022 Average glucose Estimated from glycated hemoglobin (Bld) [Mass/Vol] 189 mg/dL [facility] Hematocrit Auto (Bld) [Volum e fraction]Ordered By: Eusebio Olivares on 03-09-2022 Hematocrit (Bld) [Volume fraction] 27.1 % 38.8-50.0 [facility] Hemoglobin A1c percentageOrd ered By: Eusebio Olivares on 03-09-2022 HbA1c (Bld) [Mass fraction] 8.2 % 4.3-5.6 [facility] Comment on above: Increased risk for d iabetes: 5.7 - 6.4 diabetes: >6.4 glycemic control for adults with diabetes: <7.0 Increased risk for d iabetes: 5.7 - 6.4diabetes: >6.4glycemic control for adults with diabetes: <7.0 Laboratory - Hematology and Cell countsOrdered By: Eusebio Olivares on 03-09-2022 Nucleated RBC/100 WBC (Bld) [Ratio] 0.0 % 0-0.5 [facility] Lymphocytes Auto (Bld) [#/Vo l]Ordered By: Eusebio Olivares on 03-09-2022 Lymphocytes (Bld) [#/Vol] 1.3 10*3/uL 1.00-4.8 [facility] Lymphocytes/100 WBC Auto (Bl d)Ordered By: Eusebio Olivares on 03-09-2022 Lymphocytes/100 WBC (Bld) 20.2 % . [facility] MCH Auto (RBC) [Entitic mass ]Ordered By: Eusebio Olivares on 03-09-2022 MCH (RBC) [Entitic mass] 30.0 pg 27.5-35.2 [facility] MCHC Auto (RBC) [Mass/Vol]Or dered By: Eusebio Olivares on 03-09-2022 MCHC (RBC) [Mass/Vol] 34.7 g/dL 32.5-35.6 [facility] MCV Auto (RBC) [Entitic vol] Ordered By: Eusebio Olivares on 03-09-2022 MCV (RBC) [Entitic vol] 86.4 fL 83.5-101 F [facility] Monocytes Auto (Bld) [#/Vol] Ordered By: Eusebio Olivares on 03-09-2022 Monocytes (Bld) [#/Vol] 0.3 10*3/uL 0.0-0.8 [facility] Monocytes/100 WBC Auto (Bld) Ordered By: Eusebio Olivares on 03-09-2022 Monocytes/100 WBC (Bld) 5.2 % . F [facility] Neutrophils Auto (Bld) [#/Vo l]Ordered By: Eusebio Olivares on 03-09-2022 Neutrophils (Bld) [#/Vol] 4.6 10*3/uL 1.8-7.7 [facility] Neutrophils/100 WBC Auto (Bl d)Ordered By: Eusebio Olivares on 03-09-2022 Neutrophils/100 WBC (Bld) 71.0 % . [facility] No Panel InformationOrdered By: Eusebio Olivares on 03-09-2022 Estimated GFR () 30 mL/Min [facility] Comment on above: GFR estimated refere nce range: According to KDOQI guidelines, <60 ml/min/1.73m2 is sufficient to diagnose a patient with chronic kidney disease. Pharmacy Creatinine Clearance (Chem N/A [facility] Platelet mean volume Auto (B ld) [Entitic vol]Ordered By: Eusebio Olivares on 03-09-2022 Platelet mean volume (Bld) [Entitic vol] 8.5 fL 6.6-10.1 [facility] Platelets Auto (Bld) [#/Vol] Ordered By: Eusebio Olivares on 03-09-2022 Platelets (Bld) [#/Vol] 209 10*3/uL 150-450 [facility] RBC Auto (Bld) [#/Vol]Ordere d By: Eusebio Olivares on 03-09-2022 RBC (Bld) [#/Vol] 3.14 10*6/uL 3.90-5.60 [facility] Serum or plasma calcium farida urement (mass/volume)Ordered By: Eusebio Olivares on 03-09-2022 Calcium [Mass/Vol] 8.1 mg/dL 8.2-10.2 [facility] Serum or plasma chloride trina surement (moles/volume)Ordered By: Eusebio Olivares on 03-09-2022 Chloride [Moles/Vol] 105 mmol/L 95-114 [facility] Serum or plasma glucose farida urement (mass/volume)Ordered By: Eusebio Olivares on 03-09-2022 Glucose [Mass/Vol] 237 mg/dL 70-100 [facility] Comment on above: ADA recommended refe [...] or plasma potassium me asurement (moles/volume)Ordered By: Eusebio Olivares on 03-09-2022 Potassium [Moles/Vol] 4.2 mmol/L 3.5-5.1 [facility] Serum or plasma sodium measu rement (moles/volume)Ordered By: Eusebio Olivares on 03-09-2022 Sodium [Moles/Vol] 137 mmol/L 136-146 [facility] Serum or plasma total carbon dioxide measurement (moles/volume)Ordered By: Eusebio Olivares on 03-09-2022 CO2 [Moles/Vol] 24.6 mmol/L 22.0-30.0 [place] Serum or plasma urea nitroge n measurement (mass/volume)Ordered By: Eusebio Olivares on 03-09-2022 Urea nitrogen [Mass/Vol] 39 mg/dL 9- [facility] Activated partial thrombopla stin time (aPTT) in platelet poor plasma by coagulation aOrdered By: Angel Mejía on 12-25-2021 aPTT Coag (PPP) [Time] 39.1 s 25.1-36.5 [facility] Albumin [Mass/volume] in Ser um or PlasmaOrdered By: Angel Mejía on 12-25-2021 Albumin [Mass/Vol] 2.1 g/dL 3.2-5.5 [facility] Albumin [Mass/Vol] 2.3 g/dL 2.9-4.4 [facility] Albumin/Protein.total in 24 hour Urine by ElectrophoresisOrdered By: Angel Mejía on 12-25-2021 Albumin Elph (24H U) [Mass fraction] 64.4 % . [facility] Automated erythrocytes count in urine sediment (number/area)Ordered By: Angel Mejía on 12-25-2021 RBC Auto (Urine sed) [#/Area] 20-49 [HPF] 0-4 [facility] Automated leukocytes count i n urine sediment (number/area)Ordered By: Angel Mejía on 12-25-2021 WBC Auto (Urine sed) [#/Area] 3-4 [HPF] 0-4 [facility] Bilirubin Test strip Ql (U)O rdered By: Angel Mejía on 12-25-2021 Bilirubin Ql (U) Negative Negative [place] Blood hemoglobin measurement (mass/volume)Ordered By: Angel Mejía on 12-25-2021 Hemoglobin (Bld) [Mass/Vol] 10.6 g/dL 13.0-17.[address] [facility] [address] biopsyOrdered By: Varsha ricardo on 12-25-2021 Transferrin [Mass/Vol] 138 mg/dL 180-380 [facility] Color Auto (U)Ordered By: Ab yusra Mejía on 12-25-2021 Color (U) Yellow Yellow [facility] Creatinine and Glomerular fi ltration rate.predicted panel (S/P/Bld)Ordered By: Angel Mejía on 12-25-2021 Creatinine [Mass/Vol] 2.03 mg/dL 0.64-1.27 [facility] Erythrocyte distribution wid th Auto (RBC) [Ratio]Ordered By: Angel Mejía on 12-25-2021 Erythrocyte distribution width (RBC) [Ratio] 12.9 % 12.0-14.8 [facility] Estimated glomerular filtrat ion rate (GFR) non- AmericanOrdered By: Angel Mejía on 12-25-2021 GFR/1.73 sq M.predicted among non-blacks MDRD (S/P/Bld) [Vol rate/Area] 37 mL/Min [facility] Ferritin [Mass/volume] in Se rum or PlasmaOrdered By: Angel Mejía on 12-25-2021 Ferritin [Mass/Vol] 165.7 ng/mL 23.9-336.2 [facility] Folate [Mass/volume] in Seru m or PlasmaOrdered By: Angel Mejía on 12-25-2021 Folate [Mass/Vol] 11.1 ng/mL >5.9 [facility] Comment on above: Folate reference ran ge: >5.9 ng/ml The WHO technical consultation on folate and vitamin b12 deficiencies has determined that folate concentrations less than 4 ng/ml are considered deficient. Gamma globulin/Protein.total in 24 hour Urine by ElectrophoresisOrdered By: Angel Mejía on 12-25-2021 Gamma globulin Elph (24H U) [Mass fraction] 10.4 % . [place] Hematocrit Auto (Bld) [Volum e fraction]Ordered By: Angel Mejía on 12-25-2021 Hematocrit (Bld) [Volume fraction] 30.1 % 38.8-50.0 [facility] Hepatitis B virus surface Ag [Presence] in Serum or Plasma by ImmunoassayOrdered By: Angel Mejía on 12-25-2021 HBV surface Ag IA Ql Negative Negative [facility] Comment on above: Performed at: [facility] [address] [id number] Vehicle Care Specialist: Pablito Alexander PhD, Phone: [phone] IgA [Mass/volume] in Serum o r PlasmaOrdered By: Angel Mejía on 12-25-2021 IgA [Mass/Vol] 373 mg/dL 90-386 [facility] IgG [Mass/volume] in Serum o r PlasmaOrdered By: Angel Mejía on 12-25-2021 IgG [Mass/Vol] 801 mg/dL 603-1613 [facility] IgM [Mass/volume] in Serum o r PlasmaOrdered By: Angel Mejía on 12-25-2021 IgM [Mass/Vol] 284 mg/dL 20-172 [facility] Comment on above: Performed at: [facility] [address] [id number] Vehicle Care Specialist: Pablito Alexander PhD, Phone: [phone] Immunofixation for UrineOrde red By: Angel Mejía on 12-25-2021 Interpretation Immunofixation (U) [Interp] Comment: . [facility] Comment on above: Presence of monoclon al protein is unclear at this time. Suggest repeat in 3 to 6 months if clinically indicated. Performed at: [facility] [address] [id number] Vehicle Care Specialist: Pablito Alexander PhD, Phone: [phone] Immunoglobulin light chains. kappa.free [Mass/volume] in SerumOrdered By: Angel Mejía on 12-25-2021 Immunoglobulin light chains.kappa.free (S) [Mass/Vol] 93.9 mg/L 3.3-19.4 [facility] Immunoglobulin light chains. kappa.free/Immunoglobulin light chains.lambda.free [MassOrdered By: Angel Mejía on 12-25-2021 Immunoglobulin light chains.kappa.free/Immun oglobulin light chains.lambda.free (S) [Mass ratio] 1.78 0.26-1.65 [facility] Comment on above: Performed at: [address] [id number] Vehicle Care Specialist: Pablito Alexander PhD, Phone: [phone] Immunoglobulin light chains. lambda.free [Mass/volume] in Serum or PlasmaOrdered By: Angel Mejía on 12-25-2021 Immunoglobulin light chains.lambda.free [Mass/Vol] 52.7 mg/L 5.7-26.3 [facility] Iron [Mass/volume] in Serum or PlasmaOrdered By: Angel Mejía on 12-25-2021 Iron [Mass/Vol] 44 ug/dL 40-160 [facility] Iron binding capacity [Mass/ volume] in Serum or PlasmaOrdered By: Angel Mejía on 12-25-2021 Iron binding capacity [Mass/Vol] 193 ug/dL 255-450 [facility] Iron saturation [Mass Fracti on] in Serum or PlasmaOrdered By: Angel Mejía on 12-25-2021 Iron saturation [Mass fraction] 22.0 % 20-50 [facility] Ketones Auto test strip (U) [Mass/Vol]Ordered By: Angel Mejía on 12-25-2021 Ketones (U) [Mass/Vol] Negative Negative [facility] Laboratory - Chemistry and C hemistry - challengeOrdered By: Angel Mejía on 12-25-2021 Cobalamin (Vitamin B12) [Mass/Vol] 968 pg/mL 180-914 [facility] Magnesium [Mass/Vol] 2.1 mg/dL 1.6-2.6 [facility] Laboratory - CoagulationOrde red By: Angel Mejía on 12-25-2021 PT Coag (PPP) [Time] 11.6 s 9.0-12.9 [facility] Laboratory - UrinalysisOrder ed By: Angel Mejía on 12-25-2021 Hyaline casts LM Ql (Urine sed) 0-8 [LPF] 0-8 [facility] MCH Auto (RBC) [Entitic mass ]Ordered By: Angel Mejía on 12-25-2021 MCH (RBC) [Entitic mass] 29.8 pg 27.5-35.2 [facility] MCHC Auto (RBC) [Mass/Vol]Or dered By: Angel Mejía on 12-25-2021 MCHC (RBC) [Mass/Vol] 35.1 g/dL 32.5-35.6 [facility] MCV Auto (RBC) [Entitic vol] Ordered By: Angel Mejía on 12-25-2021 MCV (RBC) [Entitic vol] 84.8 fL 83.5-101 F [facility] Nitrite Test strip Ql (U)Ord ered By: Angel Mejía on 12-25-2021 Nitrite Ql (U) Negative Negative [facility] No Panel InformationOrdered By: Angel Mejía on 12-25-2021 25-Hydroxy Vitamin D Total < 7.0 ng/mL 30-100 [facility] Comment on above: VITAMIN D STATUS 25( [place])VITAMIN D RANGE (ng/mL) Deficient <20 Insufficient 20 to <30 Sufficient 30 to 100 Reference: Vanna MF,Chemo NC, Sergey SIMENTAL, et al. Evaluation,treatment, and prevention of vitamin D deficiency; an Endocrine Society clinical practice guideline. JCEM. 2010; 96(7):1911-30. Estimated GFR () 45 mL/Min [facility] Comment on above: GFR estimated refere nce range: According to KDOQI guidelines, <60 ml/min/1.73m2 is sufficient to diagnose a patient with chronic kidney disease. Pharmacy Creatinine Clearance (Chem N/A [facility] Protein Electrophoresis [place] Not observed g/dL Not Observed [facility] Protein Electrophoresis Note See comment . [facility] Comment on above: Protein electrophore sis scan will follow via computer, mail, or audiovisual tech delivery. Performed at: [facility] [id number] Vehicle Care Specialist: Pablito Alexander PhD, Phone: [phone] Serum Immunofixation Comment: . [facility] Comment on above: Presence of monoclon al protein is unclear at this time. Suggest repeat in 3 to 6 months if clinically indicated. Urine Random Prot Electrophor Note See comment . [facility] Comment on above: Protein electrophore sis scan will follow via computer, mail, or audiovisual tech delivery. Phosphate [Mass/volume] in S gretta or PlasmaOrdered By: Angel Mejía on 12-25-2021 Phosphate [Mass/Vol] 4.6 mg/dL 2.5-4.6 [facility] Platelet mean volume Auto (B ld) [Entitic vol]Ordered By: Angel Mejía on 12-25-2021 Platelet mean volume (Bld) [Entitic vol] 8.9 fL 6.6-10.1 [facility] Platelet poor plasma interna tional normalized ratio (INR) by coagulation assay (relatOrdered By: Angel Mejía on 12-25-2021 INR Coag (PPP) [Relative time] 1.0 {INR} [facility] Comment on above: INR Therapeutic Rang [...] 12-25-2021 Platelets (Bld) [#/Vol] 280 10*3/uL 150-450 [facility] Protein Auto test strip (U) [Mass/Vol]Ordered By: Angel Mejía on 12-25-2021 Protein (U) [Mass/Vol] mg/dL Negative [facility] Protein [Mass/volume] in Ser um or PlasmaOrdered By: Angel Mejía on 12-25-2021 Protein [Mass/Vol] 5.5 g/dL 6.0-8.5 [facility] Protein [Mass/volume] in Uri neOrdered By: Angel Mejía on 12-25-2021 Protein (U) [Mass/Vol] 710.3 mg/dL Not Estab. F [facility] Comment on above: Results confirmed on dilution. Protein.monoclonal/Protein.t otal in 24 hour Urine by ElectrophoresisOrdered By: Angel Mejía on 12-25-2021 Protein.monoclonal Elph (24H U) [Mass fraction] Comment: % Not Observed [place] Comment on above: ASYMMETRICAL GAMMA RBC Auto (Bld) [#/Vol]Ordere d By: Angel Mejía on 12-25-2021 RBC (Bld) [#/Vol] 3.55 10*6/uL 3.90-5.60 [facility] Serum globulin measurement ( mass/volume)Ordered By: Angel Mejía on 12-25-2021 Globulin (S) [Mass/Vol] 3.2 g/dL 2.2-3.9 F [facility] Serum or plasma albumin/glob ulin mass ratioOrdered By: Angel Mejía on 12-25-2021 Albumin/Globulin [Mass ratio] 0.7 {ratio} 0.7-1.7 [facility] Serum or plasma alpha 1 glob ulin measurement by electrophoresis (mass/volume)Ordered By: Angel Mejía on 12-25-2021 Alpha 1 globulin Elph [Mass/Vol] 0.2 g/dL 0.0-0.4 [facility] Serum or plasma alpha 2 glob ulin measurement by electrophoresis (mass/volume)Ordered By: Angel Mejía on 12-25-2021 Alpha 2 globulin Elph [Mass/Vol] 1.2 g/dL 0.4-1.0 [facility] Serum or plasma beta globuli n measurement by electrophoresis (mass/volume)Ordered By: Angel Mejía on 12-25-2021 Beta globulin Elph [Mass/Vol] 0.9 g/dL 0.7-1.3 [facility] Serum or plasma calcium farida urement (mass/volume)Ordered By: Angel Mejía on 12-25-2021 Calcium [Mass/Vol] 8.3 mg/dL 8.2-10.2 [facility] Serum or plasma chloride trina surement (moles/volume)Ordered By: Angel Mejía on 12-25-2021 Chloride [Moles/Vol] 97 mmol/L 95-114 [facility] Serum or plasma gamma globul in measurement by electrophoresis (mass/volume)Ordered By: Angel Mejía on 12-25-2021 Gamma globulin Elph [Mass/Vol] 0.9 g/dL 0.4-1.8 [facility] Serum or plasma glucose farida urement (mass/volume)Ordered By: Angel Mejía on 12-25-2021 Glucose [Mass/Vol] 392 mg/dL 70-100 [facility] Comment on above: ADA recommended refe rence range Random Glucose Reference Range is dependent on time and content of last meal. Glucose of more than 200 mg/dL in a nonstressed, ambulatory subject supports the diagnosis of Diabetes Mellitus. Serum or plasma intact parat hyroid hormone measurement (mass/volume)Ordered By: Angel Mejía on 12-25-2021 Parathyrin.intact [Mass/Vol] 147.3 pg/mL 12 [facility] Serum or plasma potassium me asurement (moles/volume)Ordered By: Angel Mejía on 12-25-2021 Potassium [Moles/Vol] 4.2 mmol/L 3.5-5.1 [facility] Serum or plasma sodium measu rement (moles/volume)Ordered By: Angel Mejía on 12-25-2021 Sodium [Moles/Vol] 130 mmol/L 136-146 [facility] Serum or plasma total carbon dioxide measurement (moles/volume)Ordered By: Angel Mejía on 12-25-2021 CO2 [Moles/Vol] 24.4 mmol/L 22.0-30.0 [place] Serum or plasma urea nitroge n measurement (mass/volume)Ordered By: Angel Mejía on 12-25-2021 Urea nitrogen [Mass/Vol] 35 mg/dL 05-11 [facility] Specific gravity Auto test s trip (U) [Rel density]Ordered By: Angel Mejía on 12-25-2021 Specific gravity (U) [Rel density] 1.026 1.001-1.030 [facility] Squamous epithelial cells de tection in urine sediment by light microscopyOrdered By: Angel Mejía on 12-25-2021 Epithelial cells.squamous LM Ql (Urine sed) 1-2 [HPF] 0-2 [facility] Urine alpha 1 globulin/total protein by electrophoresisOrdered By: Angel Mejía on 12-25-2021 Alpha 1 globulin Elph (U) [Mass fraction] 7.4 % . [facility] Urine alpha 2 globulin/total protein ratio by electrophoresisOrdered By: Angel Mejía on 12-25-2021 Alpha 2 globulin Elph (U) [Mass fraction] 6.8 % . [facility] Urine bacteria detection by automated methodOrdered By: Angel Mejía on 12-25-2021 Bacteria Auto Ql (U) None seen None Seen [facility] Urine beta globulin measurem ent by electrophoresis (mass/volume)Ordered By: Angel Mejía on 12-25-2021 Beta globulin Elph (U) [Mass/Vol] 11.0 % . [facility] Urine clarity by refractomet ry automatedOrdered By: Angel Mejía on 12-25-2021 Clarity Refractometry automated (U) Clear Clear [facility] Urine glucose measurement by automated test strip (mass/volume)Ordered By: Angel Mejía on 12-25-2021 Glucose Auto test strip (U) [Mass/Vol] >=1000 mg/dL Normal [facility] Urine hemoglobin detection b y automated test stripOrdered By: Angel Mejía on 12-25-2021 Hemoglobin Auto test strip Ql (U) 1+ Negative [facility] Urine leukocyte esterase det ection by automated test stripOrdered By: Angel Mejía on 12-25-2021 Leukocyte esterase Auto test strip Ql (U) Negative Negative [facility] Urobilinogen Auto test strip (U) [Mass/Vol]Ordered By: Angel Mejía on 12-25-2021 Urobilinogen (U) [Mass/Vol] Normal mg/dL Normal [facility] WBC Auto (Bld) [#/Vol]Ordere d By: Angel Mejía on 12-25-2021 WBC (Bld) [#/Vol] 8.1 10*3/uL 4.1-10.5 [facility] pH Auto test strip (U)Ordere d By: Angel Mejía on 12-25-2021 pH (U) 5.5 [pH] 5.0-9.0 [facility] Tobacco Screening.on 022 Adult depression screening assessment No [facility] [employer] DO Work Phone: Tobacco use status [facility]PH[facility] a) Yes [facility] [employer] DO Work Phone: Tobacco Screening. Yes [facility] [employer] DO Work Phone: MARYAM EIA W/REFLEX 5 [employer]ARK[employer] Son 10-24-2021 MARYAM Direct Positive Abnormal Negative [facility] Comment on above: Performed By: #### A NARF #### [facility] [address] [place] [address] Dr. Sonam Godinez Anti-DNA (DS) Ab Qn 1 IU/mL Normal 0-9 [facility] Comment on above: Result Comment: Nega tive <5 Equivocal 5 - 9 Positive >9 Performed By: #### A NARF #### [facility] [address] [address] [address] Sonam Godinez GUT SORTER Antibodies 1.4 AI Critically high 0.0-0.9 [facility] Comment on above: Performed By: #### A NARF #### [facility] [address] [place] [address] Dr. Sonam Godinez SEE BELOW: Comment Normal [facility] Comment on above: Result Comment: Auto [...] Sm (anti-Anderson) SLE 15 - 30% --------- GUT SORTER Mixed Connective Tissue Disease 95% (U1 nRNP, SLE 30 - 50% anti-ribonucleoprotein) Polymyositis and/or Dermatomyositis 20% --------- Scl-70 (antiDNA Scleroderma (diffuse) 20 - 35% topoisomerase) Crest 13% --------- Cony-1 Polymyositis and/or Dermatomyositis 20 - 40% --------- Centromere B Scleroderma - Crest variant 80% Performed By: #### A NARF #### [facility] [address] [place] [address] Dr. Sonam Godinez Sjogren's Anti-SS-A <0.2 Normal 0.0-0.9 [facility] Comment on above: Performed By: #### A NARF #### [facility] [address] [place] [address] Dr. Sonam Godinez Sjogrnirmala's Anti-SS-B <0.2 Normal 0.0-0.9 [facility] Comment on above: Performed By: #### A NARF #### [facility] [address] [place] [address] Dr. Sonam Godinez Anderson Antibodies <0.2 Normal 0.0-0.9 [facility] Comment on above: Performed By: #### A NARF #### [facility] [address] [place] [address] Dr. Sonam Godinez ALBUMINon 10-23-2021 Albumin [Mass/Vol] 1.8 g/dL Critically low 3.5-5.0 [facility] Comment on above: Performed By: #### A LB, LIPID, DLDL, BMP #### [facility] [address] [place] [address] Dr. Sonam Godinez DIRECT LDLon 10-23-2021 Cholesterol in LDL [Mass/Vol] 164 mg/dL Normal [facility] Comment on above: Performed By: #### A LB, LIPID, DLDL, BMP #### [facility] [address] [place] [address] Dr. Sonam Godinez DLDL NORMAL SEE BELOW Normal [facility] Comment on above: Result Comment: <100 mg/dl OPTIMAL 100 - 129 mg/dl NEAR OR ABOVE OPTIMAL 130 - 159 mg/dl BORDERLINE HIGH 160 - 189 mg/dl HIGH >190 mg/dl VERY HIGH Performed By: #### A LB, LIPID, DLDL, BMP #### [facility] [address] [address] [address] Sonam Godinez GLYCOHEMOGLOBIN A1Con 2021 ADA RECOMMENDATION ADA THERAPEUTIC TARG ET 6.0 - 7.0 ACTION SUGGESTED > 7.0 Normal [facility] Comment on above: Performed By: #### A 1C #### [facility] [address] [address] [address] Sonam Godinez Glucose [Mass/Vol] 157 mg/dL Normal [facility] Comment on above: Performed By: #### A 1C #### [facility] [address] [place] [address] Dr. Sonam Godinez HbA1c (Bld) [Mass fraction] 7.1 % Critically high <=6.0 [facility] Comment on above: Performed By: #### A 1C #### [facility] [address] [address] [address] Sonam Godinez LIPID PROFILEon 10-23-2021 CHOL-HDL RATIO NORM SEE BELOW Normal [facility] Comment on above: Result Comment: 3.3 - 4.4 LOW RISK 4.4 - 7.1 AVERAGE RISK 7.1 - 11.0 MODERATE RISK >11.0 HIGH RISK Performed By: #### A LB, LIPID, DLDL, BMP #### [facility] [address] [place] [address] Dr. Sonam Godinez Cholesterol [Mass/Vol] 312 mg/dL Critically high <=200 [facility] Comment on above: Performed By: #### A LB, LIPID, DLDL, BMP #### [facility] [address] [place] [address] Dr. Sonam Godinez Cholesterol in HDL [Mass/Vol] 40 mg/dL Normal [facility] Comment on above: Performed By: #### A LB, LIPID, DLDL, BMP #### [facility] [address] [address] [address] Sonam Godinez Cholesterol.total/Rosalind sterol in HDL [Mass ratio] 7.8 {ratio} Normal [facility] Comment on above: Performed By: #### A LB, LIPID, DLDL, BMP #### [facility] [address] [address] [address] Sonam Godinez HDL NORMAL > or = 60 mg/dl - LO W CARDIOVASCULAR RISK <40 mg/dl - HIGH CARDIOVASCULAR RISK Normal [facility] Comment on above: Performed By: #### A LB, LIPID, DLDL, BMP #### [facility] [address] [address] [address] Sonam Godinez LDL CALC NORMAL SEE BELOW Normal [facility] Comment on above: Result Comment: <100 mg/dl OPTIMAL 100 - 129 mg/dl NEAR OR ABOVE OPTIMAL 130 - 159 mg/dl BORDERLINE HIGH 160 - 189 mg/dl HIGH >190 mg/dl VERY HIGH Performed By: #### A LB, LIPID, DLDL, BMP #### [facility] [address] [place] [address] Dr. Sonam Godinez Triglyceride [Mass/Vol] 494 mg/dL Critically high <=150 [facility] Comment on above: Performed By: #### A LB, LIPID, DLDL, BMP #### [facility] [address] [place] [address] Dr. Sonam Godinez PROF CHEM 8 (BAS METB)on Anion gap [Moles/Vol] 8.8 mmol/L Normal [facility] Comment on above: Performed By: #### A LB, LIPID, DLDL, BMP #### [facility] [address] [place] [address] Dr. Sonam Godinez Calcium [Mass/Vol] 7.8 mg/dL Critically low 8.4-10.2 [facility] Comment on above: Performed By: #### A LB, LIPID, DLDL, BMP #### [facility] [address] [place] [address] Dr. Sonam Godinez Chloride [Moles/Vol] 101 mmol/L Normal 98-107 [facility] Comment on above: Performed By: #### A LB, LIPID, DLDL, BMP #### [facility] [address] [address] [address] Sonam Godinez CO2 [Moles/Vol] 27.1 mmol/L Normal 22.0-30.0 [facility] Comment on above: Performed By: #### A LB, LIPID, DLDL, BMP #### [facility] [address] [place] [address] Dr. Sonam Godinez Creatinine [Mass/Vol] 1.66 mg/dL Critically high 0.66-1.25 [facility] Comment on above: Performed By: #### A LB, LIPID, DLDL, BMP #### [facility] [address] [place] [address] Dr. Sonam Godinez EGFR-AF PERUVIAN 57 mL/min/1.73m2 Critically low >=60 [facility] Comment on above: Performed By: #### A LB, LIPID, DLDL, BMP #### [facility] [address] [place] [address] Dr. Sonam Godinez EGFR-NON AF PERUVIAN 47 mL/min/1.73m2 Critically low >=60 [facility] Comment on above: Performed By: #### A LB, LIPID, DLDL, BMP #### [facility] [address] [place] [address] Dr. Sonam Godinez Glucose [Mass/Vol] 240 mg/dL Critically high 74-[address] [facility] Comment on above: Performed By: #### A LB, LIPID, DLDL, BMP #### [facility] [address] [place] [address] Dr. Sonam Godinez Potassium [Moles/Vol] 3.9 mmol/L Normal 3.4-5.0 [facility] Comment on above: Performed By: #### A LB, LIPID, DLDL, BMP #### [facility] [address] [place] [address] Dr. Sonam Godinez Sodium [Moles/Vol] 133 mmol/L Critically low 137-145 [facility] Comment on above: Performed By: #### A LB, LIPID, DLDL, BMP #### [facility] [address] [place], [place] [address] Dr. Sonam Godinez Urea nitrogen [Mass/Vol] 37.0 mg/dL Critically high 9.0-20.0 [facility] Comment on above: Performed By: #### A LB, LIPID, DLDL, BMP #### [facility] [address] [address] [address] Sonam Godinez Urea nitrogen/Creatinine [Mass ratio] 22.3 mg/mg Normal [facility] Comment on above: Performed By: #### A LB, LIPID, DLDL, BMP #### [facility] [address] [address] [address] Sonam Godinez URINE T PROTEIN CREAT RATIOo n 10-23-2021 UR TOTAL PROTEIN >200.0 Critically high <=12.0 [facility] Comment on above: Performed By: #### U RTPCR #### [facility] [address] [place] [address] Dr. Sonam Godinez URINE CREAT 52.73 mg/dL Normal 20.00-300.00 [facility] Comment on above: Performed By: #### U RTPCR #### [facility] [address] [place] [address] Dr. Sonam Godinez US KIDNEYS BLADDERon 022 US KIDNEYS BLADDER EXAMINATION: [facility] BLADDER HISTORY: Renal disorder associated [...] by: JEREL MEJIA Date: 2021-10-23 11:27 Normal [facility] ED NOTEon 10-01-2021 ED NOTE HNO ID: [id number] Author: Gerald Ellington MD Service: Emergency Medicine Author Type: Resident Type: ED Notes Filed: 10/01/2021 6:37 PM Note Text: CM for AM 23M sent from [facility] for ophtho c/s for elevated L [...] other two should be TID [facility] ophtho f/u at 1230 ([address] [facility]) Others' Documentation Sun Oct 01, 2021 0707 [...] Ellington MD Emergency Medicine Resident 10/01/21 Normal [facility] ED PROV NOTEon 10-01-2021 ED PROV NOTE HNO ID: [id number] Author: Anum Tristan MD Service: Ophthalmology Author Type: Resident Type: ED Provider Notes Filed: 10/01/2021 9:02 AM Note Text: -------- Attestation signed by Ben Cherry MD at [...] Cherry MD October 02, 2021 7:56 AM -------- OPHTHALMOLOGY CONSULTATION REPORT Yoel Werner [id number] October 01, 2021 7:14 AM REASON FOR [...] not flat on back - F/u in [place] with Dr. Zita Allen tomorrow at 12:30 - ophthalmology will arrange appointment 2. Proliferative diabetic retinopathy, both eyes - Managed by Dr. Gonzales in [place]; next f/u appointment Saturday, 09/05 per patient Case discussed with glaucoma fellow Dr. Cherry and retina staff Dr. Aguilar. HPI This is a 36 year old male who is transferred to [facility] for elevated IOP, left eye, in [...] [facility] (pt saw him in [place], [place]). The patient was doing well at [...] periocular pain, which prompted his visit to [facility] ED, where he was found to have IOP in the mid-50s. The [facility] ED was unable to get in contact with the patient's retina practice, so I was called for medical advice. I recommended 3 rounds of brimonidine/timolol/dorz lyssa and, if possible, 1g or 500mg of Diamox (depending on kidney function; recommended BMP prior to administration). After these interventions, the patient's IOP, left eye, remained in the high 40s, so the decision was made to transfer the patient to [facility] Main ED for further assessment and management. CT at [facility] was remarkable only for vitreous opacities, c/w exam. The patient has a history of intravitreal injections (uncertain agent, presumably anti-VEGF) with his previous retina specialist in [place] and, most recently, received anti-VEGF injections OU [...] +2 Tonometr (more content not included)... Normal [facility] ED PROV NOTE HNO ID: [id number] Author: Govind Us MD Service: Emergency Medicine [...] DMII and macular degeneration. He is from [place]; recently moved back to [place] in [facility]. About a month ago had outpatient ophthalmology evaluation and was found to have left retinal detachment. He had surgery for left eye retinal detachment on 09/17/2021. States yesterday he developed severe left eye pain. he tried using his eye drops at home for elevated pressures w/out improvement. Went to [facility] ED- found to have elevated IOP. Patient reports left eye pressures were elevated near 50. He received PO meds and ophthalmologic drops, and was sent to [facility] main campus for optho consult. He reports minimal vision [...] patient an (more content not included)... Normal [facility] Vital Signs Date Time Vital Sign Value Performing Clinician Facility 04-01-2025 12:06-040 Body height 185.42 cm [employer] DO Work Phone: [facility] 04-01-2025 12:06-0400 Body mass index (BMI) [Ratio] 22.1 kg/m2 Eusebio AnyLeaf DO Work Phone: [facility] 04-01-2025 12:06-0400 Body temperature 97.2 [degF] Eusebio [employer] DO Work Phone: [facility] 04-01-2025 12:06-0400 Body weight 76 kg Eusebio Any[employer] DO Work Phone: [facility] 04-01-2025 12:06-0400 Diastolic blood pressure 96 mm[Hg] [employer] DO Work Phone: [facility] 04-01-2025 12:06-0400 Heart rate 65 /min Eusebio Ball DO Work Phone: [facility] 04-01-2025 12:06-0400 SaO2% (BldA) [Mass fraction] 97 % Eusebio Ball DO Work Phone: [facility] 04-01-2025 12:06-0400 Systolic blood pressure 160 mm[Hg] Eusebio Ball DO Work Phone: [facility] 01-21-2025 21:26-0400 Body temperature 97.8 [degF] Eusebio Ball DO Work Phone: [facility] 01-21-2025 21:26-0400 Diastolic blood pressure 80 mm[Hg] Eusebio Ball DO Work Phone: [facility] 01-21-2025 21:26-0400 Heart rate 61 /min Eusebio Ball DO Work Phone: [facility] 01-21-2025 21:26-0400 Respiratory rate 18 /min Eusebio Ball DO Work Phone: [facility] 01-21-2025 21:26-0400 SaO2% (BldA) [Mass fraction] 97 % Eusebio Ball DO Work Phone: [facility] 01-21-2025 21:26-0400 Systolic blood pressure 163 mm[Hg] Eusebio Ball DO Work Phone: [facility] 01-21-2025 11:09-0400 Body height 185.42 cm Eusebio Ball DO Work Phone: [facility] 01-21-2025 11:09-0400 Body weight 78 kg Eusebio Ball DO Work Phone: [facility] 01-12-2025 14:50-0400 Body height 185.42 cm Eusebio Ball DO Work Phone: [facility] 01-12-2025 14:50-0400 Body mass index (BMI) [Ratio] 22.4 kg/m2 Eusebio Ball DO Work Phone: [facility] 01-12-2025 14:50-0400 Body weight 77.11 kg Eusebio Ball DO Work Phone: [facility] 01-12-2025 14:50-0400 Diastolic blood pressure 86 mm[Hg] Eusebio Ball DO Work Phone: [facility] 01-12-2025 14:50-0400 Heart rate 68 /min Eusebio Ball DO Work Phone: [facility] 01-12-2025 14:50-0400 Respiratory rate 12 /min Eusebio Ball DO Work Phone: [facility] 01-12-2025 14:50-0400 Systolic blood pressure 179 mm[Hg] Eusebio Ball DO Work Phone: [facility] 12-17-2024 02:11-0400 Diastolic blood pressure 81 mm[Hg] Eusebio Ball DO Work Phone: [facility] 12-17-2024 02:11-0400 Heart rate 77 /min Eusebio Ball DO Work Phone: [facility] 12-17-2024 02:11-0400 Respiratory rate 18 /min Eusebio Ball DO Work Phone: [facility] 12-17-2024 02:11-0400 SaO2% (BldA) [Mass fraction] 95 % Eusebio Ball DO Work Phone: [facility] 12-17-2024 02:11-0400 Systolic blood pressure 159 mm[Hg] Eusebio Ball DO Work Phone: [facility] 12-16-2024 23:46-0400 Body height 185.42 cm Eusebio Ball DO Work Phone: [facility] 12-16-2024 23:46-0400 Body temperature 98.4 [degF] Eusebio Ball DO Work Phone: [facility] 12-16-2024 23:46-0400 Body weight 78 kg Eusebio Ball DO Work Phone: [facility] 12-10-2024 10:42-0400 Body height 182.9 cm David Berg DPM Work Phone: [facility] 12-10-2024 10:42-0400 Body mass index (BMI) [Ratio] 21.16 kg/m2 David Berg DPM Work Phone: [facility] 12-10-2024 10:42-0400 Body weight 70.76 kg David Berg DPM Work Phone: [facility] 12-10-2024 10:42-0400 Respiratory rate 18 /min David Berg DPM Work Phone: [facility] 11-24-2024 11:46-0400 Body height 182.9 cm Brianna Duffdon DO Work Phone: [facility] 11-24-2024 11:46-0400 Body mass index (BMI) [Ratio] 23.06 kg/m2 Brianna Gomez DO Work Phone: [facility] 11-24-2024 11:46-0400 Body weight 77.11 kg Brianna Gomez DO Work Phone: [facility] 11-24-2024 11:46-0400 Diastolic blood pressure 80 mm[Hg] Brianna Gomez DO Work Phone: [facility] 11-24-2024 11:46-0400 Heart rate 68 /min Brianna Jason DO Work Phone: [facility] 11-24-2024 11:46-0400 Systolic blood pressure 124 mm[Hg] Brianna Duffdon DO Work Phone: [facility] 11-02-2024 12:53-0400 Body temperature 98.1 [degF] Eusebio Ball DO Work Phone: [facility] 11-02-2024 12:53-0400 Diastolic blood pressure 67 mm[Hg] Eusebio Ball DO Work Phone: [facility] 11-02-2024 12:53-0400 Heart rate 71 /min Eusebio Ball DO Work Phone: [facility] 11-02-2024 12:53-0400 Respiratory rate 18 /min Eusebio Ball DO Work Phone: [facility] 11-02-2024 12:53-0400 SaO2% (BldA) [Mass fraction] 99 % Eusebio Ball DO Work Phone: [facility] 11-02-2024 12:53-0400 Systolic blood pressure 149 mm[Hg] Eusebio Ball DO Work Phone: [facility] 11-02-2024 05:45-0400 Body weight 77.3 kg Eusebio Ball DO Work Phone: [facility] 11-01-2024 23:28-0400 Diastolic blood pressure 85 mm[Hg] Eusebio Ball DO Work Phone: [facility] 11-01-2024 23:28-0400 Heart rate 71 /min Eusebio Ball DO Work Phone: [facility] 11-01-2024 23:28-0400 Systolic blood pressure 179 mm[Hg] Eusebio Ball DO Work Phone: [facility] 11-01-2024 22:26-0400 Respiratory rate 13 /min Eusebio Ball DO Work Phone: [facility] 11-01-2024 22:26-0400 SaO2% (BldA) [Mass fraction] 98 % Eusebio Ball DO Work Phone: [facility] 11-01-2024 20:27-0400 Body height 185.42 cm Eusebio Ball DO Work Phone: [facility] 11-01-2024 20:27-0400 Body temperature 97.8 [degF] Eusebio Ball DO Work Phone: [facility] 11-01-2024 20:27-0400 Body weight 76.6 kg Eusebio Ball DO Work Phone: [facility] 10-30-2024 08:17-0400 Body temperature 97.6 [degF] Eusebio Ball DO Work Phone: [facility] 10-30-2024 08:17-0400 Diastolic blood pressure 73 mm[Hg] Eusebio Ball DO Work Phone: [facility] 10-30-2024 08:17-0400 Heart rate 60 /min Eusebio Ball DO Work Phone: [facility] 10-30-2024 08:17-0400 Respiratory rate 20 /min Eusebio Ball DO Work Phone: [facility] 10-30-2024 08:17-0400 SaO2% (BldA) [Mass fraction] 100 % Eusebio Ball DO Work Phone: [facility] 10-30-2024 08:17-0400 Systolic blood pressure 142 mm[Hg] Eusebio Ball DO Work Phone: [facility] 10-30-2024 08:13-0400 Body height 185.42 cm Eusebio Ball DO Work Phone: [facility] 10-30-2024 08:13-0400 Body weight 74.6 kg Eusebio Ball DO Work Phone: [facility] 10-14-2024 13:43-0500 Body height 185.42 cm Eusebio Ball DO Work Phone: [facility] 10-14-2024 13:43-0500 Body mass index (BMI) [Ratio] 21.4 kg/m2 Eusebio Ball DO Work Phone: [facility] 10-14-2024 13:43-0500 Body weight 73.5 kg Eusebio Ball DO Work Phone: [facility] 10-14-2024 13:43-0500 Diastolic blood pressure 69 mm[Hg] Eusebio Ball DO Work Phone: [facility] 10-14-2024 13:43-0500 Heart rate 78 /min Eusebio Ball DO Work Phone: [facility] 10-14-2024 13:43-0500 Respiratory rate 12 /min Eusebio Ball DO Work Phone: [facility] 10-14-2024 13:43-0500 Systolic blood pressure 130 mm[Hg] Eusebio Ball DO Work Phone: [facility] 09-17-2024 16:44-0500 Heart rate 66 /min Eusebio Ball DO Work Phone: [facility] 09-17-2024 16:44-0500 Respiratory rate 20 /min Eusebio Ball DO Work Phone: [facility] 09-17-2024 16:23-0500 Body height 185.42 cm Eusebio Ball DO Work Phone: [facility] 09-17-2024 16:00-0500 Body temperature 98.4 [degF] Eusebio Ball DO Work Phone: [facility] 09-17-2024 16:00-0500 Diastolic blood pressure 75 mm[Hg] Eusebio Ball DO Work Phone: [facility] 09-17-2024 16:00-0500 SaO2% (BldA) [Mass fraction] 96 % Eusebio Ball DO Work Phone: [facility] 09-17-2024 16:00-0500 Systolic blood pressure 147 mm[Hg] Eusebio Ball DO Work Phone: [facility] 09-17-2024 04:15-0500 Body weight 72 kg Eusebio Ball DO Work Phone: [facility] 09-16-2024 21:38-0500 Inhaled oxygen flow rate 2 L/min Eusebio Ball DO Work Phone: [facility] 09-16-2024 16:45-0500 Heart rate 77 /min Eusebio Ball DO Work Phone: [facility] 09-16-2024 16:45-0500 Respiratory rate 20 /min Eusebio Ball DO Work Phone: [facility] 09-16-2024 16:21-0500 Body height 185.42 cm Eusebio Ball DO Work Phone: [facility] 09-16-2024 16:21-0500 Body temperature 98.7 [degF] Eusebio Ball DO Work Phone: [facility] 09-16-2024 16:21-0500 Body weight 71.6 kg Eusebio Ball DO Work Phone: [facility] 09-16-2024 16:21-0500 Diastolic blood pressure 85 mm[Hg] Eusebio Ball DO Work Phone: [facility] 09-16-2024 16:21-0500 SaO2% (BldA) [Mass fraction] 98 % Eusebio Ball DO Work Phone: [facility] 09-16-2024 16:21-0500 Systolic blood pressure 176 mm[Hg] Eusebio Ball DO Work Phone: [facility] 09-02-2024 13:33-0500 Body height 185.42 cm Eusebio Ball DO Work Phone: [facility] 09-02-2024 13:33-0500 Body mass index (BMI) [Ratio] 22.2 kg/m2 Eusebio Ball DO Work Phone: [facility] 09-02-2024 13:33-0500 Body weight 76.6 kg Eusebio Ball DO Work Phone: [facility] 09-02-2024 13:33-0500 Diastolic blood pressure 89 mm[Hg] Eusebio Ball DO Work Phone: [facility] 09-02-2024 13:33-0500 Heart rate 80 /min Eusebio Ball DO Work Phone: [facility] 09-02-2024 13:33-0500 Respiratory rate 12 /min Eusebio Ball DO Work Phone: [facility] 09-02-2024 13:33-0500 Systolic blood pressure 139 mm[Hg] Eusebio Ball DO Work Phone: [facility] 08-29-2024 16:18-0500 Heart rate 70 /min Eusebio Ball DO Work Phone: [facility] 08-29-2024 14:51-0500 Body temperature 98 [degF] Eusebio Ball DO Work Phone: [facility] 08-29-2024 14:51-0500 Diastolic blood pressure 80 mm[Hg] Eusebio Ball DO Work Phone: [facility] 08-29-2024 14:51-0500 Respiratory rate 18 /min Eusebio Ball DO Work Phone: [facility] 08-29-2024 14:51-0500 SaO2% (BldA) [Mass fraction] 98 % Eusebio Ball DO Work Phone: [facility] 08-29-2024 14:51-0500 Systolic blood pressure 158 mm[Hg] Eusebio Ball DO Work Phone: [facility] 08-29-2024 05:57-0500 Body weight 78 kg Eusebio Ball DO Work Phone: [facility] 08-28-2024 14:00-0500 Body height 185.42 cm Eusebio Ball DO Work Phone: [facility] 08-28-2024 02:09-0500 Diastolic blood pressure 76 mm[Hg] Eusebio Ball DO Work Phone: [facility] 08-28-2024 02:09-0500 Heart rate 74 /min Eusebio Ball DO Work Phone: [facility] 08-28-2024 02:09-0500 Respiratory rate 22 /min Eusebio Ball DO Work Phone: [facility] 08-28-2024 02:09-0500 Systolic blood pressure 149 mm[Hg] Eusebio Ball DO Work Phone: [facility] 08-27-2024 21:43-0500 Body height 182.88 cm Eusebio Ball DO Work Phone: [facility] 08-27-2024 21:43-0500 Body temperature 98 [degF] Eusebio Ball DO Work Phone: [facility] 08-27-2024 21:43-0500 Body weight 77.11 kg Eusebio Ball DO Work Phone: [facility] 08-27-2024 21:43-0500 SaO2% (BldA) [Mass fraction] 98 % Eusebio Ball DO Work Phone: [facility] 08-17-2024 14:13-0500 Body height 185.42 cm Eusebio Ball DO Work Phone: [facility] 08-17-2024 14:13-0500 Body temperature 98.4 [degF] Eusebio Ball DO Work Phone: [facility] 08-17-2024 14:13-0500 Body weight 70 kg Eusebio Ball DO Work Phone: [facility] 08-17-2024 14:13-0500 Diastolic blood pressure 76 mm[Hg] Eusebio Ball DO Work Phone: [facility] 08-17-2024 14:13-0500 Heart rate 69 /min Eusebio Ball DO Work Phone: [facility] 08-17-2024 14:13-0500 Respiratory rate 16 /min Eusebio Ball DO Work Phone: [facility] 08-17-2024 14:13-0500 SaO2% (BldA) [Mass fraction] 98 % Eusebio Ball DO Work Phone: [facility] 08-17-2024 14:13-0500 Systolic blood pressure 157 mm[Hg] Eusebio Ball DO Work Phone: [facility] 08-01-2024 03:06-0500 Diastolic blood pressure 94 mm[Hg] Eusebio Ball DO Work Phone: [facility] 08-01-2024 03:06-0500 Heart rate 75 /min Eusebio Ball DO Work Phone: [facility] 08-01-2024 03:06-0500 Respiratory rate 14 /min Eusebio Ball DO Work Phone: [facility] 08-01-2024 03:06-0500 SaO2% (BldA) [Mass fraction] 97 % Eusebio Ball DO Work Phone: [facility] 08-01-2024 03:06-0500 Systolic blood pressure 185 mm[Hg] Eusebio Ball DO Work Phone: [facility] 08-01-2024 01:55-0500 Body height 185.42 cm Eusebio Ball DO Work Phone: [facility] 08-01-2024 01:55-0500 Body temperature 98.6 [degF] Eusebio Ball DO Work Phone: [facility] 08-01-2024 01:55-0500 Body weight 73.7 kg Eusebio Ball DO Work Phone: [facility] 06-22-2024 16:39-0500 Respiratory rate 16 /min Eusebio Ball DO Work Phone: [facility] 06-22-2024 16:20-0500 Diastolic blood pressure 80 mm[Hg] Eusebio Ball DO Work Phone: [facility] 06-22-2024 16:20-0500 Heart rate 70 /min Eusebio Ball DO Work Phone: [facility] 06-22-2024 16:20-0500 Systolic blood pressure 158 mm[Hg] Eusebio Ball DO Work Phone: [facility] 06-22-2024 12:30-0500 Body height 185.42 cm Eusebio Ball DO Work Phone: [facility] 06-22-2024 12:30-0500 Body temperature 97.8 [degF] Eusebio Ball DO Work Phone: [facility] 06-22-2024 12:30-0500 Body weight 73.6 kg Eusebio Ball DO Work Phone: [facility] 06-22-2024 12:30-0500 SaO2% (BldA) [Mass fraction] 100 % Eusebio Ball DO Work Phone: [facility] 06-11-2024 09:55-0400 Body height 182.9 cm Brianna Gomez DO Work Phone: [facility] 06-11-2024 09:55-0400 Body mass index (BMI) [Ratio] 21.56 kg/m2 Brianna Gomez DO Work Phone: [facility] 06-11-2024 09:55-0400 Body weight 72.12 kg Brianna Gomez DO Work Phone: [facility] 06-11-2024 09:55-0400 Diastolic blood pressure 88 mm[Hg] Brianna Gomez DO Work Phone: [facility] 06-11-2024 09:55-0400 Heart rate 60 /min Brianna Gomez DO Work Phone: [facility] 06-11-2024 09:55-0400 Systolic blood pressure 148 mm[Hg] Brianna Gomez DO Work Phone: [facility] 06-04-2024 09:14-0400 Body height 182.9 cm David Berg DPM Work Phone: [facility] 06-04-2024 09:14-0400 Body mass index (BMI) [Ratio] 21.16 kg/m2 David Berg DPM Work Phone: [facility] 06-04-2024 09:14-0400 Body weight 70.76 kg David Berg DPM Work Phone: [facility] 06-04-2024 09:14-0400 Diastolic blood pressure 80 mm[Hg] David Berg DPM Work Phone: [facility] 06-04-2024 09:14-0400 Heart rate 84 /min David Berg DPM Work Phone: [facility] 06-04-2024 09:14-0400 Systolic blood pressure 129 mm[Hg] David Berg DPM Work Phone: [facility] 04-29-2024 14:18-0400 Body height 172.72 cm DO Eusebio Ball Work Phone: [facility] 04-29-2024 14:18-0400 Body mass index (BMI) [Ratio] 23.4 kg/m2 DO Eusebio Ball Work Phone: [facility] 04-29-2024 14:18-0400 Body weight 70.02 kg DO Eusebio Ball Work Phone: [facility] 04-29-2024 14:18-0400 Diastolic blood pressure 93 mm[Hg] DO Eusebio Ball Work Phone: [facility] 04-29-2024 14:18-0400 Heart rate 83 /min DO Eusebio Ball Work Phone: [facility] 04-29-2024 14:18-0400 Respiratory rate 12 /min DO Eusebio Ball Work Phone: [facility] 04-29-2024 14:18-0400 Systolic blood pressure 188 mm[Hg] DO Eusebio Ball Work Phone: [facility] 03-19-2024 12:05-0400 Body height 172.72 cm DO Eusebio Ball Work Phone: [facility] 03-19-2024 12:05-0400 Body mass index (BMI) [Ratio] 20.6 kg/m2 DO Eusebio Ball Work Phone: [facility] 03-19-2024 12:05-0400 Body weight 61.46 kg DO Eusebio Ball Work Phone: [facility] 03-19-2024 12:05-0400 Diastolic blood pressure 80 mm[Hg] DO Eusebio Ball Work Phone: [facility] 03-19-2024 12:05-0400 Heart rate 77 /min DO Eusebio Ball Work Phone: [facility] 03-19-2024 12:05-0400 Respiratory rate 12 /min DO Eusebio Ball Work Phone: [facility] 03-19-2024 12:05-0400 Systolic blood pressure 157 mm[Hg] DO Eusebio Ball Work Phone: [facility] 03-10-2024 13:14-0400 Body temperature 98.2 [degF] DO Eusebio Ball Work Phone: [facility] 03-10-2024 13:14-0400 Diastolic blood pressure 70 mm[Hg] DO Eusebio Ball Work Phone: [facility] 03-10-2024 13:14-0400 Heart rate 78 /min DO Eusebio Ball Work Phone: [facility] 03-10-2024 13:14-0400 Respiratory rate 24 /min DO Eusebio Ball Work Phone: [facility] 03-10-2024 13:14-0400 SaO2% (BldA) [Mass fraction] 98 % DO Eusebio Ball Work Phone: [facility] 03-10-2024 13:14-0400 Systolic blood pressure 138 mm[Hg] DO Eusebio Ball Work Phone: [facility] 03-10-2024 05:37-0400 Body weight 77.1 kg DO Eusebio Ball Work Phone: [facility] 03-10-2024 00:00-0400 Inhaled oxygen flow rate 2 L/min DO Eusebio Ball Work Phone: [facility] 03-09-2024 17:38-0400 Inhaled oxygen concentration 45 % DO Eusebio Ball Work Phone: [facility] 03-09-2024 10:46-0400 Body height 185.42 cm DO Eusebio Ball Work Phone: [facility] 03-09-2024 10:39-0400 Inhaled oxygen concentration 60 % DO Eusebio Ball Work Phone: [facility] 03-09-2024 10:39-0400 SaO2% (BldA) [Mass fraction] 96 % DO Eusebio Ball Work Phone: [facility] 03-09-2024 10:04-0400 Heart rate 67 /min DO Eusebio Ball Work Phone: [facility] 03-09-2024 10:04-0400 Inhaled oxygen flow rate 35 L/min DO Eusebio Ball Work Phone: [facility] 03-09-2024 10:04-0400 Respiratory rate 24 /min DO Eusebio Ball Work Phone: [facility] 03-09-2024 10:02-0400 Diastolic blood pressure 87 mm[Hg] DO Eusebio Ball Work Phone: [facility] 03-09-2024 10:02-0400 Systolic blood pressure 182 mm[Hg] DO Eusebio Ball Work Phone: [facility] 03-09-2024 07:22-0400 Body temperature 97.1 [degF] DO Eusebio Ball Work Phone: [facility] 03-09-2024 05:32-0400 Body height 185.42 cm DO Eusebio Ball Work Phone: [facility] 03-09-2024 05:32-0400 Body weight 71 kg DO Eusebio Ball Work Phone: [facility] 03-02-2024 17:59-0400 Body temperature 97.1 [degF] DO Eusebio Ball Work Phone: [facility] 03-02-2024 17:59-0400 Diastolic blood pressure 60 mm[Hg] DO Eusebio Ball Work Phone: [facility] 03-02-2024 17:59-0400 Heart rate 72 /min DO Eusebio Ball Work Phone: [facility] 03-02-2024 17:59-0400 Respiratory rate 18 /min DO Eusebio Ball Work Phone: [facility] 03-02-2024 17:59-0400 SaO2% (BldA) [Mass fraction] 100 % DO Eusebio Ball Work Phone: [facility] 03-02-2024 17:59-0400 Systolic blood pressure 139 mm[Hg] DO Eusebio Ball Work Phone: [facility] 03-02-2024 12:46-0400 Body height 185.42 cm DO Eusebio Ball Work Phone: [facility] 03-02-2024 12:30-0400 Diastolic blood pressure 79 mm[Hg] DO Eusebio Ball Work Phone: [facility] 03-02-2024 12:30-0400 Heart rate 74 /min DO Eusebio Ball Work Phone: [facility] 03-02-2024 12:30-0400 Systolic blood pressure 153 mm[Hg] DO Eusebio Ball Work Phone: [facility] 03-02-2024 09:25-0400 Body temperature 98 [degF] DO Eusebio Ball Work Phone: [facility] 03-02-2024 09:25-0400 Respiratory rate 16 /min DO Eusebio Ball Work Phone: [facility] 03-02-2024 09:25-0400 SaO2% (BldA) [Mass fraction] 98 % DO Eusebio Ball Work Phone: [facility] 03-02-2024 06:45-0400 Body weight 80.2 kg DO Eusebio Ball Work Phone: [facility] 03-01-2024 06:56-0400 Diastolic blood pressure 77 mm[Hg] DO Eusebio Ball Work Phone: [facility] 03-01-2024 06:56-0400 Heart rate 75 /min DO Eusebio Ball Work Phone: [facility] 03-01-2024 06:56-0400 Respiratory rate 14 /min DO Eusebio Ball Work Phone: [facility] 03-01-2024 06:56-0400 SaO2% (BldA) [Mass fraction] 93 % DO Eusebio Ball Work Phone: [facility] 03-01-2024 06:56-0400 Systolic blood pressure 164 mm[Hg] DO Eusebio Ball Work Phone: [facility] 03-01-2024 02:40-0400 Body height 185.42 cm DO Eusebio Ball Work Phone: [facility] 03-01-2024 02:40-0400 Body temperature 98.5 [degF] DO Eusebio Ball Work Phone: [facility] 03-01-2024 02:40-0400 Body weight 71.5 kg DO Eusebio Ball Work Phone: [facility] 01-09-2024 09:35-0400 Body height 185.42 cm DO Eusebio Ball Work Phone: [facility] 01-09-2024 09:35-0400 Body temperature 97.8 [degF] DO Eusebio Ball Work Phone: [facility] 01-09-2024 09:35-0400 Diastolic blood pressure 78 mm[Hg] DO Eusebio Ball Work Phone: [facility] 01-09-2024 09:35-0400 Heart rate 76 /min DO Eusebio Ball Work Phone: [facility] 01-09-2024 09:35-0400 Respiratory rate 16 /min DO Eusebio Ball Work Phone: [facility] 01-09-2024 09:35-0400 SaO2% (BldA) [Mass fraction] 97 % DO Eusebio Ball Work Phone: [facility] 01-09-2024 09:35-0400 Systolic blood pressure 122 mm[Hg] DO Eusebio Ball Work Phone: [facility] 12-03-2023 15:31-0400 Body height 182.9 cm Brianna Gomez DO Work Phone: [facility] 12-03-2023 15:31-0400 Body mass index (BMI) [Ratio] 22.92 kg/m2 Brianna Gomez DO Work Phone: [facility] 12-03-2023 15:31-0400 Body weight 76.66 kg Brianna Gomez DO Work Phone: [facility] 12-03-2023 15:31-0400 Diastolic blood pressure 90 mm[Hg] Brianna Gomez DO Work Phone: [facility] 12-03-2023 15:31-0400 Heart rate 76 /min Brianna Gomez DO Work Phone: [facility] 12-03-2023 15:31-0400 Systolic blood pressure 156 mm[Hg] Brianna Gomez DO Work Phone: [facility] 11-26-2023 12:52-0400 Diastolic blood pressure 51 mm[Hg] DO Eusebio Ball Work Phone: [facility] 11-26-2023 12:52-0400 Heart rate 62 /min DO Eusebio Ball Work Phone: [facility] 11-26-2023 12:52-0400 Respiratory rate 14 /min DO Eusebio Ball Work Phone: [facility] 11-26-2023 12:52-0400 SaO2% (BldA) [Mass fraction] 95 % DO Eusebio Ball Work Phone: [facility] 11-26-2023 12:52-0400 Systolic blood pressure 103 mm[Hg] DO Eusebio Ball Work Phone: [facility] 11-26-2023 11:52-0400 Inhaled oxygen flow rate 6 L/min DO Eusebio Ball Work Phone: [facility] 11-26-2023 08:50-0400 Body mass index (BMI) [Ratio] 22.1 kg/m2 DO Eusebio Ball Work Phone: [facility] 11-26-2023 08:42-0400 Body height 185.42 cm DO Eusebio Ball Work Phone: [facility] 11-26-2023 08:42-0400 Body temperature 97.8 [degF] DO Eusebio Ball Work Phone: [facility] 11-26-2023 08:42-0400 Body weight 71.5 kg DO Eusebio Ball Work Phone: [facility] 11-14-2023 14:43-0400 Body height 185.42 cm DO Eusebio Ball Work Phone: [facility] 11-14-2023 14:43-0400 Body mass index (BMI) [Ratio] 21.2 kg/m2 DO Eusebio Ball Work Phone: [facility] 11-14-2023 14:43-0400 Body weight 73.14 kg DO Eusebio Ball Work Phone: [facility] 11-14-2023 14:43-0400 Diastolic blood pressure 81 mm[Hg] DO Eusebio Ball Work Phone: [facility] 11-14-2023 14:43-0400 Heart rate 73 /min DO Eusebio Ball Work Phone: [facility] 11-14-2023 14:43-0400 Respiratory rate 12 /min DO Eusebio Ball Work Phone: [facility] 11-14-2023 14:43-0400 Systolic blood pressure 174 mm[Hg] DO Eusebio Ball Work Phone: [facility] 10-31-2023 08:40-0400 Diastolic blood pressure 72 mm[Hg] DO Eusebio Ball Work Phone: [facility] 10-31-2023 08:40-0400 Heart rate 67 /min DO Eusebio Ball Work Phone: [facility] 10-31-2023 08:40-0400 Respiratory rate 18 /min DO Eusebio Ball Work Phone: [facility] 10-31-2023 08:40-0400 SaO2% (BldA) [Mass fraction] 99 % DO Eusebio Ball Work Phone: [facility] 10-31-2023 08:40-0400 Systolic blood pressure 170 mm[Hg] DO Eusebio Ball Work Phone: [facility] 10-31-2023 08:16-0400 Body height 185.42 cm DO Eusebio Ball Work Phone: [facility] 10-31-2023 08:16-0400 Body weight 72.57 kg DO Eusebio Ball Work Phone: [facility] 10-17-2023 10:57-0500 Body height 185.42 cm DO Eusebio Ball Work Phone: [facility] 10-17-2023 10:57-0500 Body mass index (BMI) [Ratio] 20.7 kg/m2 DO Eusebio Ball Work Phone: [facility] 10-17-2023 10:57-0500 Body temperature 97.6 [degF] DO Eusebio Ball Work Phone: [facility] 10-17-2023 10:57-0500 Body weight 71.21 kg DO Eusebio Ball Work Phone: [facility] 10-17-2023 10:57-0500 Diastolic blood pressure 68 mm[Hg] DO Eusebio Ball Work Phone: [facility] 10-17-2023 10:57-0500 Heart rate 82 /min DO Eusebio Ball Work Phone: [facility] 10-17-2023 10:57-0500 Respiratory rate 16 /min DO Eusebio Ball Work Phone: [facility] 10-17-2023 10:57-0500 SaO2% (BldA) [Mass fraction] 98 % DO Eusebio Ball Work Phone: [facility] 10-17-2023 10:57-0500 Systolic blood pressure 116 mm[Hg] DO Eusebio Ball Work Phone: [facility] 10-17-2023 08:39-0500 Body height 185.42 cm DO Eusebio Ball Work Phone: [facility] 10-17-2023 08:39-0500 Body mass index (BMI) [Ratio] 20.7 kg/m2 DO Eusebio Ball Work Phone: [facility] 10-17-2023 08:39-0500 Body temperature 98.4 [degF] DO Eusebio Ball Work Phone: [facility] 10-17-2023 08:39-0500 Body weight 71.21 kg DO Eusebio Ball Work Phone: [facility] 10-17-2023 08:39-0500 Diastolic blood pressure 63 mm[Hg] DO Eusebio Ball Work Phone: [facility] 10-17-2023 08:39-0500 Systolic blood pressure 117 mm[Hg] DO Eusebio Ball Work Phone: [facility] 10-02-2023 11:26-0500 Heart rate 70 /min DO Eusebio Ball Work Phone: [facility] 10-02-2023 11:08-0500 Respiratory rate 18 /min DO Eusebio Ball Work Phone: [facility] 10-02-2023 11:08-0500 SaO2% (BldA) [Mass fraction] 98 % DO Eusebio Ball Work Phone: [facility] 10-02-2023 10:04-0500 Body height 185.42 cm DO Eusebio Ball Work Phone: [facility] 10-02-2023 10:04-0500 Body weight 74 kg DO Eusebio Ball Work Phone: [facility] 10-02-2023 10:03-0500 Body temperature 97.8 [degF] DO Eusebio Ball Work Phone: [facility] 10-02-2023 10:03-0500 Diastolic blood pressure 73 mm[Hg] DO Eusebio Ball Work Phone: [facility] 10-02-2023 10:03-0500 Systolic blood pressure 139 mm[Hg] DO Eusebio Ball Work Phone: [facility] 10-01-2023 10:46-0500 Body temperature 98 [degF] DO Eusebio Ball Work Phone: [facility] 10-01-2023 10:46-0500 Body weight 73.93 kg DO Eusebio Ball Work Phone: [facility] 10-01-2023 10:46-0500 Diastolic blood pressure 90 mm[Hg] DO Eusebio Ball Work Phone: [facility] 10-01-2023 10:46-0500 Heart rate 798 /min DO Eusebio Ball Work Phone: [facility] 10-01-2023 10:46-0500 Respiratory rate 18 /min DO Eusebio Ball Work Phone: [facility] 10-01-2023 10:46-0500 SaO2% (BldA) [Mass fraction] 98 % DO Eusebio Ball Work Phone: [facility] 10-01-2023 10:46-0500 Systolic blood pressure 170 mm[Hg] DO Eusebio Ball Work Phone: [facility] 08-29-2023 09:00-0500 Body height 185.42 cm Romain Mendoza Other [facility] 08-29-2023 09:00-0500 Body mass index (BMI) [Ratio] 20.58 kg/m2 Romain Mendoza Other [facility] [employer] Other 08-29-2023 09:00-0500 Body temperature 97.6 [degF] Romain Mendoza Other [facility] [employer] Other 08-29-2023 09:00-0500 Body weight 70.76 kg Romain Mendoza Other [facility] 08-29-2023 09:00-0500 Diastolic blood pressure 58 mm[Hg] Romain Mendoza Other [facility] 08-29-2023 09:00-0500 SaO2% (BldA) [Mass fraction] 97 % Romain Mendoza Other [facility] [employer] Other 08-29-2023 09:00-0500 Systolic blood pressure 84 mm[Hg] Romain Mendoza Other [facility] 08-18-2023 14:00-0500 Body temperature 98 [degF] DO Eusebio Ball Work Phone: [facility] 08-18-2023 14:00-0500 Diastolic blood pressure 80 mm[Hg] DO Eusebio Ball Work Phone: [facility] 08-18-2023 14:00-0500 Heart rate 68 /min DO Eusebio Ball Work Phone: [facility] 08-18-2023 14:00-0500 Respiratory rate 18 /min DO Eusebio Ball Work Phone: [facility] 08-18-2023 14:00-0500 SaO2% (BldA) [Mass fraction] 95 % DO Eusebio Ball Work Phone: [facility] 08-18-2023 14:00-0500 Systolic blood pressure 137 mm[Hg] DO Eusebio Ball Work Phone: [facility] 08-18-2023 10:55-0500 Body height 182.88 cm DO Eusebio Ball Work Phone: [facility] 08-18-2023 05:06-0500 Body weight 71.6 kg DO Eusebio Ball Work Phone: [facility] 08-13-2023 10:15-0500 Body height 185.42 cm Eusebio Ball Other [facility] 08-13-2023 10:15-0500 Body mass index (BMI) [Ratio] 20.92 kg/m2 Eusebio Ball Other [facility] [employer] Other 08-13-2023 10:15-0500 Body weight 71.94 kg Eusebio Ball Other [facility] [employer] Other 08-13-2023 10:15-0500 Body weight 71.93 kg DO Eusebio Ball Work Phone: [facility] 08-13-2023 10:15-0500 Diastolic blood pressure 61 mm[Hg] Eusebio Ball Other [facility] 08-13-2023 10:15-0500 Respiratory rate 12 /min Eusebio Ball Other [facility] [employer] Other 08-13-2023 10:15-0500 Systolic blood pressure 94 mm[Hg] Eusebio Ball Other [facility] 07-16-2023 09:30-0500 Body height 185.42 cm Eusebio Ball Other [facility] 07-16-2023 09:30-0500 Body mass index (BMI) [Ratio] 20.98 kg/m2 Eusebio Ball Other [facility] [employer] Other 07-16-2023 09:30-0500 Body weight 72.12 kg Eusebio Ball Other [facility] 07-16-2023 09:30-0500 Diastolic blood pressure 75 mm[Hg] Eusebio Ball Other [facility] 07-16-2023 09:30-0500 Respiratory rate 12 /min Eusebio Ball Other [facility] [employer] Other 07-16-2023 09:30-0500 Systolic blood pressure 115 mm[Hg] Eusebio Ball Other [facility] 07-04-2023 09:45-0500 Body height 185.42 cm Romain Mendoza Other [email or web address] Other 07-04-2023 09:45-0500 Body mass index (BMI) [Ratio] 21.11 kg/m2 Romain Mendoza Other [email or web address] Other 07-04-2023 09:45-0500 Body temperature 97.8 [degF] Romain Florezkaley Other [email or web address] Other 07-04-2023 09:45-0500 Body weight 72.58 kg Romain Florezkaley Other [email or web address] Other 07-04-2023 09:45-0500 Diastolic blood pressure 72 mm[Hg] Romain Florezkaley Other [email or web address] Other 07-04-2023 09:45-0500 SaO2% (BldA) [Mass fraction] 98 % Romain Florezkaley Other [email or web address] Other 07-04-2023 09:45-0500 Systolic blood pressure 118 mm[Hg] Romain Florezkaley Other [employer] Other 06-17-2023 13:55-0400 Diastolic blood pressure 87 mm[Hg] DO Eusebio Ball Work Phone: [facility] 06-17-2023 13:55-0400 Heart rate 72 /min DO Eusebio Ball Work Phone: [facility] 06-17-2023 13:55-0400 Respiratory rate 16 /min DO Eusebio Ball Work Phone: [facility] 06-17-2023 13:55-0400 SaO2% (BldA) [Mass fraction] 99 % DO Eusebio Ball Work Phone: [facility] 06-17-2023 13:55-0400 Systolic blood pressure 158 mm[Hg] DO Eusebio Ball Work Phone: [facility] 06-17-2023 12:15-0400 Body height 185.42 cm DO Eusebio Ball Work Phone: [facility] 06-17-2023 12:15-0400 Body weight 73.48 kg DO Eusebio Ball Work Phone: [facility] 06-13-2023 09:30-0400 Body height 185.42 cm Zina Childs Other [email or web address] Other 06-13-2023 09:30-0400 Body mass index (BMI) [Ratio] 21.11 kg/m2 Zina Childs Other [email or web address] Other 06-13-2023 09:30-0400 Body temperature 97.6 [degF] Zina Childs Other [email or web address] Other 06-13-2023 09:30-0400 Body weight 72.58 kg Zina Childs Other [email or web address] Other 06-13-2023 09:30-0400 Diastolic blood pressure 72 mm[Hg] Zina Childs Other [email or web address] Other 06-13-2023 09:30-0400 SaO2% (BldA) [Mass fraction] 97 % Zina Childs Other [email or web address] Other 06-13-2023 09:30-0400 Systolic blood pressure 130 mm[Hg] Zina Childs Other [email or web address] Other 04-12-2023 09:40-0400 Diastolic blood pressure 81 mm[Hg] DO Eusebio Ball Work Phone: [facility] 04-12-2023 09:40-0400 Heart rate 71 /min DO Eusebio Ball Work Phone: [facility] 04-12-2023 09:40-0400 Respiratory rate 16 /min DO Eusebio Ball Work Phone: [facility] 04-12-2023 09:40-0400 SaO2% (BldA) [Mass fraction] 98 % DO Eusebio Ball Work Phone: [facility] 04-12-2023 09:40-0400 Systolic blood pressure 175 mm[Hg] DO Eusebio Ball Work Phone: [facility] 04-12-2023 07:41-0400 Body height 182.88 cm DO Eusebio Ball Work Phone: [facility] 04-12-2023 07:41-0400 Body weight 72.57 kg DO Eusebio Ball Work Phone: [facility] 04-10-2023 10:00-0400 Body height 185.42 cm Romain Mendoza Other [employer] Other 04-10-2023 10:00-0400 Body mass index (BMI) [Ratio] 21.5 kg/m2 Romain Mendoza Other [employer] Other 04-10-2023 10:00-0400 Body temperature 97.6 [degF] Romain Mendoza Other [employer] Other 04-10-2023 10:00-0400 Body weight 73.94 kg Romain Mendoza Other [employer] Other 04-10-2023 10:00-0400 Diastolic blood pressure 86 mm[Hg] Romain Mendoza Other [employer] Other 04-10-2023 10:00-0400 SaO2% (BldA) [Mass fraction] 96 % Romain Mendoza Other [employer] Other 04-10-2023 10:00-0400 Systolic blood pressure 128 mm[Hg] Romain Mendoza Other [employer] Other 03-26-2023 08:38-0400 Body height 182.88 cm DO Eusebio Ball Work Phone: [facility] 03-26-2023 08:38-0400 Body temperature 97.7 [degF] DO Eusebio Ball Work Phone: [facility] 03-26-2023 08:38-0400 Body weight 76.06 kg DO Eusebio Ball Work Phone: [facility] 03-26-2023 08:38-0400 Diastolic blood pressure 84 mm[Hg] DO Eusebio Ball Work Phone: [facility] 03-26-2023 08:38-0400 Heart rate 75 /min DO Eusebio Ball Work Phone: [facility] 03-26-2023 08:38-0400 Respiratory rate 20 /min DO Eusebio Ball Work Phone: [facility] 03-26-2023 08:38-0400 SaO2% (BldA) [Mass fraction] 100 % DO Eusebio Ball Work Phone: [facility] 03-26-2023 08:38-0400 Systolic blood pressure 169 mm[Hg] DO Eusebio Ball Work Phone: [facility] 02-27-2023 15:00-0400 Body mass index (BMI) [Ratio] 21.5 kg/m2 Angel Joyce Other [employer] Other 02-27-2023 15:00-0400 Body temperature 96.6 [degF] Angel Joyce Other [employer] Other 02-27-2023 15:00-0400 Body weight 73.94 kg Angel Joyce Other [employer] Other 02-27-2023 15:00-0400 Diastolic blood pressure 81 mm[Hg] Angel Joyce Other [employer] Other 02-27-2023 15:00-0400 Respiratory rate 16 /min Angel Joyce Other [employer] Other 02-27-2023 15:00-0400 SaO2% (BldA) [Mass fraction] 98 % Angel Joyce Other [employer] Other 02-27-2023 15:00-0400 Systolic blood pressure 150 mm[Hg] Angel Joyce Other [employer] Other 02-27-2023 10:00-0400 Body height 185.42 cm Zina Hanhomer Other [employer] Other 02-27-2023 10:00-0400 Body mass index (BMI) [Ratio] 21.24 kg/m2 Zina Hanhomer Other [employer] Other 02-27-2023 10:00-0400 Body temperature 97.3 [degF] Zina Hanhomer Other [employer] Other 02-27-2023 10:00-0400 Body weight 73.03 kg Zina Hanhomer Other [employer] Other 02-27-2023 10:00-0400 Diastolic blood pressure 62 mm[Hg] Zina Childs Other [employer] Other 02-27-2023 10:00-0400 SaO2% (BldA) [Mass fraction] 99 % Zina Childs Other [employer] Other 07-12-2023 10:00-0400 Systolic blood pressure 104 mm[Hg] Znia Childs Other [employer] Other 02-26-2023 09:21-0400 Body height 182.88 cm Eusebio E Ball Work Phone: [facility] DO Work Phone: 02-26-2023 09:21-0400 Body mass index (BMI) [Ratio] 21.43 kg/m2 Eusebio E Ball Work Phone: [facility] [facility] DO Work Phone: 02-26-2023 09:21-0400 Body surface area Derived from formula 1.93 m2 Eusebio E Ball Work Phone: [facility] DO Work Phone: 02-26-2023 09:21-0400 Body weight 71.67 kg Eusebio E Ball Work Phone: [facility] DO Work Phone: 02-26-2023 09:21-0400 Diastolic blood pressure 64 mm[Hg] Eusebio E Ball Work Phone: [facility] DO Work Phone: 02-26-2023 09:21-0400 Heart rate 78 /min Eusebio E Ball Work Phone: [facility] DO Work Phone: 02-26-2023 09:21-0400 Systolic blood pressure 148 mm[Hg] Eusebio E Ball Work Phone: [facility] DO Work Phone: 02-11-2023 11:20-0400 Body height 185.42 cm Angel Mejía Other [employer] Other 02-11-2023 11:20-0400 Body mass index (BMI) [Ratio] 22 kg/m2 Agnel Joyce Other [employer] Other 02-11-2023 11:20-0400 Body temperature 97.4 [degF] Angel Joyce Other [employer] Other 02-11-2023 11:20-0400 Body weight 75.66 kg Angel Joyce Other [employer] Other 02-11-2023 11:20-0400 Diastolic blood pressure 55 mm[Hg] Angel Ojyce Other [employer] Other 02-11-2023 11:20-0400 Respiratory rate 16 /min Angel Joyce Other [employer] Other 02-11-2023 11:20-0400 SaO2% (BldA) [Mass fraction] 97 % Angel Joyce Other [employer] Other 02-11-2023 11:20-0400 Systolic blood pressure 93 mm[Hg] Angel Joyce Other [employer] Other 02-04-2023 22:30-0400 Diastolic blood pressure 76 mm[Hg] DO Eusebio Ball Work Phone: [facility] 02-04-2023 22:30-0400 Heart rate 71 /min DO Eusebio Ball Work Phone: [facility] 02-04-2023 22:30-0400 Respiratory rate 17 /min DO Eusebio Ball Work Phone: [facility] 02-04-2023 22:30-0400 SaO2% (BldA) [Mass fraction] 99 % DO Eusebio Ball Work Phone: [facility] 02-04-2023 22:30-0400 Systolic blood pressure 182 mm[Hg] DO Eusebio Ball Work Phone: [facility] 02-04-2023 17:30-0400 Body temperature 97.9 [degF] DO Eusebio Ball Work Phone: [facility] 02-04-2023 07:58-0400 Body height 185.42 cm DO Eusebio Ball Work Phone: [facility] 02-04-2023 07:58-0400 Body weight 75 kg DO Eusebio Ball Work Phone: [facility] 01-23-2023 11:15-0400 Body height 185.42 cm Romain Mendoza Other [facility] [employer] Other 01-23-2023 11:15-0400 Body mass index (BMI) [Ratio] 21.11 kg/m2 Romain Mendoza Other [employer] Other 01-23-2023 11:15-0400 Body temperature 98.1 [degF] Romain Mendoza Other [employer] Other 01-23-2023 11:15-0400 Body weight 72.58 kg Romain Mendoza Other [employer] Other 01-23-2023 11:15-0400 Diastolic blood pressure 80 mm[Hg] Romain Mendoza Other [employer] Other 01-23-2023 11:15-0400 SaO2% (BldA) [Mass fraction] 97 % Romain Mendoza Other [employer] Other 01-23-2023 11:15-0400 Systolic blood pressure 140 mm[Hg] Romain Mendoza Other [facility] [employer] Other 01-16-2023 10:04-0400 Body height 182.88 cm Eusebio E Ball Work Phone: [facility] DO Work Phone: 01-16-2023 10:04-0400 Body mass index (BMI) [Ratio] 21.7 kg/m2 Eusebio E Ball Work Phone: [facility] DO Work Phone: 01-16-2023 10:04-0400 Body surface area Derived from formula 1.94 m2 Eusebio E Ball Work Phone: [facility] DO Work Phone: 01-16-2023 10:04-0400 Body weight 72.58 kg Eusebio E Ball Work Phone: [facility] DO Work Phone: 01-16-2023 10:04-0400 Diastolic blood pressure 70 mm[Hg] Eusebio E Ball Work Phone: [facility] DO Work Phone: 01-16-2023 10:04-0400 Heart rate 60 /min Eusebio E Ball Work Phone: [facility] DO Work Phone: 01-16-2023 10:04-0400 Systolic blood pressure 142 mm[Hg] Eusebio E Ball Work Phone: [facility] DO Work Phone: 01-09-2023 16:00-0400 Body temperature 97.9 [degF] DO Eusebio Ball Work Phone: [facility] 01-09-2023 16:00-0400 Diastolic blood pressure 87 mm[Hg] DO Eusebio Ball Work Phone: [facility] 01-09-2023 16:00-0400 Heart rate 71 /min DO Eusebio Ball Work Phone: [facility] 01-09-2023 16:00-0400 Respiratory rate 18 /min DO Eusebio Ball Work Phone: [facility] 01-09-2023 16:00-0400 SaO2% (BldA) [Mass fraction] 97 % DO Eusebio Ball Work Phone: [facility] 01-09-2023 16:00-0400 Systolic blood pressure 174 mm[Hg] DO Eusebio Ball Work Phone: [facility] 01-09-2023 15:38-0400 Body height 185.42 cm DO Eusebio Ball Work Phone: [facility] 01-09-2023 02:36-0400 Body weight 75.6 kg DO Eusebio Ball Work Phone: [facility] 12-25-2022 11:40-0400 Body height 185.42 cm DO Robyn Tupa Work Phone: [facility] 12-25-2022 11:40-0400 Body temperature 98 [degF] DO Robyn Tupa Work Phone: [facility] 12-25-2022 11:40-0400 Body weight 74.5 kg DO Robyn Tupa Work Phone: [facility] 12-25-2022 11:40-0400 Diastolic blood pressure 82 mm[Hg] DO Robyn Tupa Work Phone: [facility] 12-25-2022 11:40-0400 Heart rate 73 /min DO Robyn Tupa Work Phone: [facility] 12-25-2022 11:40-0400 Respiratory rate 20 /min DO Robyn Tupa Work Phone: [facility] 12-25-2022 11:40-0400 SaO2% (BldA) [Mass fraction] 100 % DO Robyn Tupa Work Phone: [facility] 12-25-2022 11:40-0400 Systolic blood pressure 192 mm[Hg] DO Robyn Tupa Work Phone: [facility] 12-18-2022 11:30-0400 Diastolic blood pressure 79 mm[Hg] DO Robyn Tupa Work Phone: [facility] 12-18-2022 11:30-0400 Heart rate 63 /min DO Robyn Tupa Work Phone: [facility] 12-18-2022 11:30-0400 Respiratory rate 16 /min DO Robyn Tupa Work Phone: [facility] 12-18-2022 11:30-0400 SaO2% (BldA) [Mass fraction] 97 % DO Robyn Tupa Work Phone: [facility] 12-18-2022 11:30-0400 Systolic blood pressure 129 mm[Hg] DO Robyn Tupa Work Phone: [facility] 12-18-2022 10:45-0400 Inhaled oxygen flow rate 8 L/min DO Robyn Tupa Work Phone: [facility] 12-18-2022 08:12-0400 Body weight 76.2 kg DO Robyn Tupa Work Phone: [facility] 12-18-2022 07:40-0400 Body height 185.42 cm DO Robyn Tupa Work Phone: [facility] 12-18-2022 07:40-0400 Body temperature 98 [degF] DO Robyn Tupa Work Phone: [facility] 12-11-2022 09:50-0400 Diastolic blood pressure 91 mm[Hg] DO Robyn Tupa Work Phone: [facility] 12-11-2022 09:50-0400 Heart rate 62 /min DO Robyn Tupa Work Phone: [facility] 12-11-2022 09:50-0400 Respiratory rate 16 /min DO Robyn Tupa Work Phone: [facility] 12-11-2022 09:50-0400 SaO2% (BldA) [Mass fraction] 100 % DO Robyn Tupa Work Phone: [facility] 12-11-2022 09:50-0400 Systolic blood pressure 174 mm[Hg] DO Robyn Tupa Work Phone: [facility] 12-11-2022 07:46-0400 Body height 185.42 cm DO Robyn Tupa Work Phone: [facility] 12-11-2022 07:46-0400 Body weight 74.84 kg DO Robyn Tupa Work Phone: [facility] 12-06-2022 15:20-0400 Body height 185.42 cm Angel Joyce Other [employer] Other 12-06-2022 15:20-0400 Body mass index (BMI) [Ratio] 21.74 kg/m2 Angel Joyce Other [employer] Other 12-06-2022 15:20-0400 Body temperature 97.3 [degF] Angel Joyce Other [employer] Other 12-06-2022 15:20-0400 Body weight 74.75 kg Angel Joyce Other [employer] Other 12-06-2022 15:20-0400 Diastolic blood pressure 82 mm[Hg] Angel Joyce Other [employer] Other 12-06-2022 15:20-0400 Respiratory rate 16 /min Angel Joyce Other [employer] Other 12-06-2022 15:20-0400 SaO2% (BldA) [Mass fraction] 96 % Angel Joyce Other [employer] Other 12-06-2022 15:20-0400 Systolic blood pressure 163 mm[Hg] Angel Joyce Other [employer] Other 12-04-2022 08:30-0400 Diastolic blood pressure 83 mm[Hg] DO Eusebio Ball Work Phone: [facility] 12-04-2022 08:30-0400 Heart rate 66 /min DO Eusebio Ball Work Phone: [facility] 12-04-2022 08:30-0400 Respiratory rate 14 /min DO Eusebio Ball Work Phone: [facility] 12-04-2022 08:30-0400 SaO2% (BldA) [Mass fraction] 97 % DO Eusebio Ball Work Phone: [facility] 12-04-2022 08:30-0400 Systolic blood pressure 170 mm[Hg] DO Eusebio Ball Work Phone: [facility] 12-04-2022 07:01-0400 Body height 182.88 cm DO Eusebio Ball Work Phone: [facility] 12-04-2022 07:01-0400 Body weight 77.11 kg DO Eusebio Ball Work Phone: [facility] 11-28-2022 11:30-0400 Body height 185.42 cm Zina Childs Other [employer] Other 11-28-2022 11:30-0400 Body mass index (BMI) [Ratio] 22.16 kg/m2 Zina Childs Other [employer] Other 11-28-2022 11:30-0400 Body temperature 97.8 [degF] Zina Childs Other [employer] Other 11-28-2022 11:30-0400 Body weight 76.2 kg Zina Childs Other [employer] Other 11-28-2022 11:30-0400 Diastolic blood pressure 58 mm[Hg] Zina Childs Other [employer] Other 11-28-2022 11:30-0400 SaO2% (BldA) [Mass fraction] 97 % Zina Childs Other [employer] Other 11-28-2022 11:30-0400 Systolic blood pressure 102 mm[Hg] Zina Childs Other [employer] Other 11-19-2022 10:20-0400 Body height 185.42 cm Anegl Joyce Other [employer] Other 11-19-2022 10:20-0400 Body mass index (BMI) [Ratio] 22.22 kg/m2 Angel Joyce Other [employer] Other 11-19-2022 10:20-0400 Body temperature 99.6 [degF] Angel Joyce Other [employer] Other 11-19-2022 10:20-0400 Body weight 76.39 kg Angel Joyce Other [employer] Other 11-19-2022 10:20-0400 Diastolic blood pressure 68 mm[Hg] Angel Joyce Other [facility] [employer] Other 11-19-2022 10:20-0400 Respiratory rate 6 /min Angel Joyce Other [employer] Other 11-19-2022 10:20-0400 SaO2% (BldA) [Mass fraction] 99 % Angel Joyce Other [employer] Other 11-19-2022 10:20-0400 Systolic blood pressure 105 mm[Hg] Angel Joyce Other [employer] Other 11-12-2022 09:12-0400 Body height 182.88 cm DO Eusebio Ball Work Phone: [facility] 11-12-2022 09:12-0400 Body temperature 98.1 [degF] DO Eusebio Ball Work Phone: [facility] 11-12-2022 09:12-0400 Body weight 73 kg DO Eusebio Ball Work Phone: [facility] 11-12-2022 09:12-0400 Diastolic blood pressure 63 mm[Hg] DO Eusebio Ball Work Phone: [facility] 11-12-2022 09:12-0400 Heart rate 67 /min DO Eusebio Ball Work Phone: [facility] 11-12-2022 09:12-0400 Respiratory rate 16 /min DO Eusebio Ball Work Phone: [facility] 11-12-2022 09:12-0400 SaO2% (BldA) [Mass fraction] 100 % DO Eusebio Ball Work Phone: [facility] 11-12-2022 09:12-0400 Systolic blood pressure 106 mm[Hg] DO Eusebio Ball Work Phone: [facility] 10-18-2022 10:22-0500 Body height 185.42 cm Eusebio Arreguin Ball Work Phone: [facility] [employer] [facility] DO Work Phone: 10-18-2022 10:22-0500 Body mass index (BMI) [Ratio] 22.17 kg/m2 Eusebio Arreguin Ball Work Phone: [facility] [employer] [facility] DO Work Phone: 10-18-2022 10:22-0500 Body surface area Derived from formula 2 m2 Eusebio Arreguin Ball Work Phone: [facility] [employer] [address] DO Work Phone: 10-18-2022 10:22-0500 Body weight 76.2 kg Eusebio Arreguin Ball Work Phone: [facility] [employer] [address] DO Work Phone: 10-18-2022 10:22-0500 Diastolic blood pressure 76 mm[Hg] Eusebio Arreguin Ball Work Phone: [facility] [address] DO Work Phone: 10-18-2022 10:22-0500 Heart rate 76 /min Eusebio Arreguin [employer] Work Phone: [facility] [address] DO Work Phone: 10-18-2022 10:22-0500 Systolic blood pressure 120 mm[Hg] Eusebio Arreguin Ball Work Phone: [facility] [employer] [address] DO Work Phone: 10-16-2022 09:40-0500 Body height 185.42 cm Angel Joyce Other [employer] Other 10-16-2022 09:40-0500 Body mass index (BMI) [Ratio] 22.19 kg/m2 Angel Joyce Other [employer] Other 10-16-2022 09:40-0500 Body temperature 98.4 [degF] Angel Joyce Other [employer] Other 10-16-2022 09:40-0500 Body weight 76.3 kg Angel Joyce Other [employer] Other 10-16-2022 09:40-0500 Diastolic blood pressure 73 mm[Hg] Angel Joyce Other [employer] Other 10-16-2022 09:40-0500 Respiratory rate 16 /min Angel Joyce Other [employer] Other 10-16-2022 09:40-0500 SaO2% (BldA) [Mass fraction] 99 % Angel Joyce Other [employer] Other 10-16-2022 09:40-0500 Systolic blood pressure 121 mm[Hg] Angel Joyce Other [employer] Other 10-10-2022 10:30-0500 Body height 185.42 cm Zina Childs Other [employer] Other 10-10-2022 10:30-0500 Body mass index (BMI) [Ratio] 21.77 kg/m2 Zina Childs Other [employer] Other 10-10-2022 10:30-0500 Body temperature 97.8 [degF] Zina Childs Other [employer] Other 10-10-2022 10:30-0500 Body weight 74.84 kg Zina Childs Other [employer] Other 10-10-2022 10:30-0500 Diastolic blood pressure 62 mm[Hg] Zina Childs Other [employer] Other 10-10-2022 10:30-0500 SaO2% (BldA) [Mass fraction] 98 % Zina Childs Other [employer] Other 10-10-2022 10:30-0500 Systolic blood pressure 108 mm[Hg] Zina Childs Other [employer] Other 10-08-2022 10:15-0500 Body height 185.42 cm Eusebio Ball Other [employer] Other 10-08-2022 10:15-0500 Body mass index (BMI) [Ratio] 21.85 kg/m2 Eusebio Ball Other [employer] Other 10-08-2022 10:15-0500 Body weight 75.12 kg Eusebio Ball Other [employer] Other 10-08-2022 10:15-0500 Diastolic blood pressure 70 mm[Hg] Eusebio Ball Other [employer] Other 10-08-2022 10:15-0500 Respiratory rate 12 /min Eusebio Ball Other [employer] Other 10-08-2022 10:15-0500 Systolic blood pressure 108 mm[Hg] Eusebio Ball Other [employer] Other 10-03-2022 11:46-0500 Body temperature 97.9 [degF] DO [employer] Work Phone: [facility] 10-03-2022 11:46-0500 Diastolic blood pressure 90 mm[Hg] DO Zeus Keister Work Phone: [facility] 10-03-2022 11:46-0500 Heart rate 77 /min DO Zeus Keister Work Phone: [facility] 10-03-2022 11:46-0500 Respiratory rate 16 /min DO Zeus Keister Work Phone: [facility] 10-03-2022 11:46-0500 SaO2% (BldA) [Mass fraction] 98 % DO Zeus Keister Work Phone: [facility] 10-03-2022 11:46-0500 Systolic blood pressure 171 mm[Hg] DO Zeus Keister Work Phone: [facility] 10-03-2022 09:41-0500 60 1 Eusebio Olivares Work Phone: [facility] [facility] DO Work Phone: Comment on above: [id number] 10-03-2022 03:52-0500 Body height 185.42 cm DO Zeus Keister Work Phone: [facility] 10-03-2022 03:52-0500 Body weight 74.2 kg DO Zeus Keister Work Phone: [facility] 10-03-2022 02:26-0500 Heart rate 70 /min DO Zeus Keister Work Phone: [facility] 10-03-2022 02:26-0500 Respiratory rate 14 /min DO Zeus Keister Work Phone: [facility] 10-03-2022 02:26-0500 SaO2% (BldA) [Mass fraction] 98 % DO Zeus Keister Work Phone: [facility] 10-03-2022 01:52-0500 Diastolic blood pressure 79 mm[Hg] DO Zeus Keister Work Phone: [facility] 10-03-2022 01:52-0500 Systolic blood pressure 162 mm[Hg] DO Zeus Keister Work Phone: [facility] 10-02-2022 23:27-0500 Body height 185.42 cm DO Zeus Graceister Work Phone: [facility] 10-02-2022 23:27-0500 Body temperature 97.8 [degF] DO Zeus Graceister Work Phone: [facility] 10-02-2022 23:27-0500 Body weight 75.1 kg DO Zeus Graceister Work Phone: [facility] 09-17-2022 13:27-0500 Diastolic blood pressure 62 mm[Hg] DO Eusebio Ball Work Phone: [facility] 09-17-2022 13:27-0500 Heart rate 59 /min DO Eusebio Ball Work Phone: [facility] 09-17-2022 13:27-0500 Respiratory rate 16 /min DO Eusbeio Ball Work Phone: [facility] 09-17-2022 13:27-0500 SaO2% (BldA) [Mass fraction] 99 % DO Eusebio Ball Work Phone: [facility] 09-17-2022 13:27-0500 Systolic blood pressure 121 mm[Hg] DO Eusebio Ball Work Phone: [facility] 09-17-2022 11:51-0500 Inhaled oxygen flow rate 8 L/min DO Eusebio Ball Work Phone: [facility] 09-17-2022 10:14-0500 Body height 182.88 cm DO Eusebio Ball Work Phone: [facility] 09-17-2022 10:14-0500 Body mass index (BMI) [Ratio] 22.4 kg/m2 DO Eusebio Ball Work Phone: [facility] 09-17-2022 10:14-0500 Body weight 75 kg DO Eusebio Ball Work Phone: [facility] 09-17-2022 08:35-0500 Body temperature 97.9 [degF] DO Eusebio Ball Work Phone: [facility] 09-10-2022 14:28-0500 Body temperature 97.8 [degF] DO Eusebio Ball Work Phone: [facility] 09-10-2022 14:28-0500 Body weight 76.9 kg DO Eusebio Ball Work Phone: [facility] 09-10-2022 14:28-0500 Diastolic blood pressure 76 mm[Hg] DO Eusebio Ball Work Phone: [facility] 09-10-2022 14:28-0500 Heart rate 74 /min DO Eusebio Ball Work Phone: [facility] 09-10-2022 14:28-0500 Respiratory rate 16 /min DO Eusebio Ball Work Phone: [facility] 09-10-2022 14:28-0500 SaO2% (BldA) [Mass fraction] 99 % DO Eusebio Ball Work Phone: [facility] 09-10-2022 14:28-0500 Systolic blood pressure 161 mm[Hg] DO Eusebio Ball Work Phone: [facility] 09-05-2022 11:30-0500 Body height 185.42 cm Romain Mendoza Other [employer] Other 09-05-2022 11:30-0500 Body mass index (BMI) [Ratio] 21.77 kg/m2 Romain Mendoza Other [employer] Other 09-05-2022 11:30-0500 Body temperature 96.9 [degF] Romain Mendoza Other [employer] Other 09-05-2022 11:30-0500 Body weight 74.84 kg Romain Mendoza Other [employer] Other 09-05-2022 11:30-0500 Diastolic blood pressure 60 mm[Hg] Romain Mendoza Other [employer] Other 09-05-2022 11:30-0500 SaO2% (BldA) [Mass fraction] 97 % Romain Mendoza Other [employer] Other 09-05-2022 11:30-0500 Systolic blood pressure 100 mm[Hg] Romain Mendoza Other [employer] Other 08-30-2022 10:40-0500 Body height 185.42 cm Angel Joyce Other [employer] Other 08-30-2022 10:40-0500 Body mass index (BMI) [Ratio] 21.32 kg/m2 Angel Joyce Other [employer] Other 08-30-2022 10:40-0500 Body temperature 98.4 [degF] Angel Joyce Other [employer] Other 08-30-2022 10:40-0500 Body weight 73.3 kg Angel Joyce Other [employer] Other 08-30-2022 10:40-0500 Diastolic blood pressure 67 mm[Hg] Angel Joyce Other [employer] Other 08-30-2022 10:40-0500 Respiratory rate 16 /min Angel Joyce Other [employer] Other 08-30-2022 10:40-0500 SaO2% (BldA) [Mass fraction] 98 % Angel Joyce Other [facility] [employer] Other 08-30-2022 10:40-0500 Systolic blood pressure 102 mm[Hg] Angel Joyce Other [facility] [employer] Other 08-29-2022 10:19-0500 Blood Pressure Location Robyn GUERIN [facility] 08-29-2022 10:19-0500 Diastolic blood pressure 88 mm[Hg] Robyndamon GUERIN [facility] 08-29-2022 10:19-0500 Heart rate 76 /min Robyndamon GUERIN [facility] 08-29-2022 10:19-0500 Systolic blood pressure 129 mm[Hg] Robyndamon GUERIN [facility] 08-13-2022 11:19-0500 Diastolic blood pressure 67 mm[Hg] DO Eusebio Ball Work Phone: [facility] 08-13-2022 11:19-0500 Heart rate 68 /min DO Eusebio Ball Work Phone: [facility] 08-13-2022 11:19-0500 Respiratory rate 16 /min DO Eusebio Ball Work Phone: [facility] 08-13-2022 11:19-0500 SaO2% (BldA) [Mass fraction] 97 % DO Eusebio Ball Work Phone: [facility] 08-13-2022 11:19-0500 Systolic blood pressure 107 mm[Hg] DO Eusebio Ball Work Phone: [facility] 08-13-2022 08:00-0500 Body temperature 97.4 [degF] DO Eusebio Ball Work Phone: [facility] 08-13-2022 03:30-0500 Body height 182.88 cm DO Eusebio Ball Work Phone: [facility] 08-13-2022 03:30-0500 Body weight 76 kg DO Eusebio Ball Work Phone: [facility] 08-13-2022 02:20-0500 Body temperature 98.4 [degF] DO Eusebio Ball Work Phone: [facility] 08-13-2022 02:20-0500 Diastolic blood pressure 90 mm[Hg] DO Eusebio Ball Work Phone: [facility] 08-13-2022 02:20-0500 Heart rate 76 /min DO Eusebio Ball Work Phone: [facility] 08-13-2022 02:20-0500 Respiratory rate 16 /min DO Eusebio Ball Work Phone: [facility] 08-13-2022 02:20-0500 SaO2% (BldA) [Mass fraction] 98 % DO Eusebio Ball Work Phone: [facility] 08-13-2022 02:20-0500 Systolic blood pressure 192 mm[Hg] DO Eusebio Ball Work Phone: [facility] 08-12-2022 23:06-0500 Body height 182.88 cm DO Eusebio Ball Work Phone: [facility] 08-12-2022 23:06-0500 Body weight 76 kg DO Eusebio Ball Work Phone: [facility] 07-19-2022 15:15-0500 60 1 Eusebio E Ball Work Phone: [facility] 250 DO Work Phone: Comment on above: [id number] 07-09-2022 21:35-0500 Body temperature 97 [degF] DO Eusebio Ball Work Phone: [facility] 07-09-2022 21:35-0500 Diastolic blood pressure 67 mm[Hg] DO Eusebio Ball Work Phone: [facility] 07-09-2022 21:35-0500 Heart rate 65 /min DO Eusebio Ball Work Phone: [facility] 07-09-2022 21:35-0500 Respiratory rate 18 /min DO Eusebio Ball Work Phone: [facility] 07-09-2022 21:35-0500 SaO2% (BldA) [Mass fraction] 100 % DO Eusebio Ball Work Phone: [facility] 07-09-2022 21:35-0500 Systolic blood pressure 140 mm[Hg] DO Eusebio Ball Work Phone: [facility] 07-09-2022 16:31-0500 Body height 182.88 cm DO Eusebio Ball Work Phone: [facility] 07-09-2022 16:31-0500 Body weight 74.2 kg DO Eusebio Ball Work Phone: [facility] 07-05-2022 11:35-0500 Body height 185.42 cm Eusebio E Ball Work Phone: [facility] [facility] DO Work Phone: 07-05-2022 11:35-0500 Body mass index (BMI) [Ratio] 21.11 kg/m2 Eusebio E Ball Work Phone: [facility] [employer] 250 DO Work Phone: 07-05-2022 11:35-0500 Body surface area Derived from formula 1.96 m2 Eusebio E Ball Work Phone: [facility] 250 DO Work Phone: 07-05-2022 11:35-0500 Body weight 72.58 kg Eusebio E Ball Work Phone: [facility] 250 DO Work Phone: 07-05-2022 11:35-0500 Diastolic blood pressure 72 mm[Hg] Eusebio E Ball Work Phone: [facility] DO Work Phone: 07-05-2022 11:35-0500 Heart rate 72 /min Eusebio Arreguin [employer] Work Phone: [facility] [employer] 250 DO Work Phone: 07-05-2022 11:35-0500 Systolic blood pressure 116 mm[Hg] Eusebio Arreguin [employer] Work Phone: [facility] [employer] 250 DO Work Phone: 07-04-2022 11:00-0500 Body height 185.42 cm Angel Joyce Other [employer] Other 07-04-2022 11:00-0500 Body mass index (BMI) [Ratio] 20.76 kg/m2 Angel Joyce Other [employer] Other 07-04-2022 11:00-0500 Body temperature 98.4 [degF] Angel Joyce Other [employer] Other 07-04-2022 11:00-0500 Body weight 71.4 kg Angel Joyce Other [employer] Other 07-04-2022 11:00-0500 Diastolic blood pressure 89 mm[Hg] Angel Joyce Other [employer] Other 07-04-2022 11:00-0500 Respiratory rate 16 /min Angel Joyce Other [employer] Other 07-04-2022 11:00-0500 SaO2% (BldA) [Mass fraction] 98 % Angel Joyce Other [employer] Other 07-04-2022 11:00-0500 Systolic blood pressure 139 mm[Hg] Angel Mejía Other [facility] [employer] Other 06-13-2022 11:10-0400 Diastolic blood pressure 86 mm[Hg] DO Eusebio Ball Work Phone: [facility] 06-13-2022 11:10-0400 Heart rate 79 /min DO Eusebio Ball Work Phone: [facility] 06-13-2022 11:10-0400 Respiratory rate 18 /min DO Eusebio Ball Work Phone: [facility] 06-13-2022 11:10-0400 SaO2% (BldA) [Mass fraction] 99 % DO Eusebio Ball Work Phone: [facility] 06-13-2022 11:10-0400 Systolic blood pressure 178 mm[Hg] DO Eusebio Ball Work Phone: [facility] 06-13-2022 07:37-0400 Body height 182.88 cm DO Eusebio Ball Work Phone: [facility] 06-13-2022 07:37-0400 Body temperature 97.5 [degF] DO Eusebio Ball Work Phone: [facility] 06-13-2022 07:37-0400 Body weight 72.57 kg DO Eusebio Ball Work Phone: [facility] 06-03-2022 20:08-0400 Diastolic blood pressure 82 mm[Hg] DO Eusebio Ball Work Phone: [facility] 06-03-2022 20:08-0400 Heart rate 68 /min DO Eusebio Ball Work Phone: [facility] 06-03-2022 20:08-0400 Respiratory rate 18 /min DO Eusebio Ball Work Phone: [facility] 06-03-2022 20:08-0400 SaO2% (BldA) [Mass fraction] 99 % DO Eusebio Ball Work Phone: [facility] 06-03-2022 20:08-0400 Systolic blood pressure 152 mm[Hg] DO Eusebio Ball Work Phone: [facility] 06-03-2022 15:02-0400 Body height 182.88 cm DO Eusebio Ball Work Phone: [facility] 06-03-2022 15:02-0400 Body temperature 98 [degF] DO Eusebio Ball Work Phone: [facility] 06-03-2022 15:02-0400 Body weight 77.11 kg DO Eusebio Ball Work Phone: [facility] 05-29-2022 11:01-0400 Body temperature 97.5 [degF] DO Eusebio Ball Work Phone: [facility] 05-29-2022 11:01-0400 Body weight 79.37 kg DO Eusebio Ball Work Phone: [facility] 05-29-2022 11:01-0400 Diastolic blood pressure 75 mm[Hg] DO Eusebio Ball Work Phone: [facility] 05-29-2022 11:01-0400 Heart rate 80 /min DO Eusebio Ball Work Phone: [facility] 05-29-2022 11:01-0400 Respiratory rate 16 /min DO Eusebio Ball Work Phone: [facility] 05-29-2022 11:01-0400 SaO2% (BldA) [Mass fraction] 98 % DO Eusebio Ball Work Phone: [facility] 05-29-2022 11:01-0400 Systolic blood pressure 118 mm[Hg] DO Eusebio Ball Work Phone: [facility] 05-23-2022 11:40-0400 Body height 185.42 cm Angel Joyce Other [employer] Other 05-23-2022 11:40-0400 Body mass index (BMI) [Ratio] 22 kg/m2 Angel Joyce Other [employer] Other 05-23-2022 11:40-0400 Body temperature 98.2 [degF] Angel Joyce Other [employer] Other 05-23-2022 11:40-0400 Body weight 75.66 kg Angel Joyce Other [employer] Other 05-23-2022 11:40-0400 Diastolic blood pressure 92 mm[Hg] Angel Joyce Other [employer] Other 05-23-2022 11:40-0400 Respiratory rate 16 /min Angel Joyce Other [employer] Other 05-23-2022 11:40-0400 SaO2% (BldA) [Mass fraction] 98 % Angel Joyce Other [employer] Other 05-23-2022 11:40-0400 Systolic blood pressure 168 mm[Hg] Angel Joyce Other [employer] Other 05-22-2022 01:36-0400 Body temperature 99 [degF] DO Eusebio Ball Work Phone: [facility] 05-22-2022 01:36-0400 Diastolic blood pressure 78 mm[Hg] DO Eusebio Ball Work Phone: [facility] 05-22-2022 01:36-0400 Heart rate 67 /min DO Eusebio Ball Work Phone: [facility] 05-22-2022 01:36-0400 Respiratory rate 18 /min DO Eusebio Ball Work Phone: [facility] 05-22-2022 01:36-0400 SaO2% (BldA) [Mass fraction] 96 % DO Eusebio Ball Work Phone: [facility] 05-22-2022 01:36-0400 Systolic blood pressure 154 mm[Hg] DO Eusebio Ball Work Phone: [facility] 05-21-2022 22:03-0400 Body height 182.88 cm DO Eusebio Ball Work Phone: [facility] 05-21-2022 22:03-0400 Body weight 74 kg DO Eusebio Ball Work Phone: [facility] 05-18-2022 11:40-0400 Diastolic blood pressure 95 mm[Hg] DO Eusebio Ball Work Phone: [facility] 05-18-2022 11:40-0400 Heart rate 80 /min DO Eusebio Ball Work Phone: [facility] 05-18-2022 11:40-0400 Respiratory rate 16 /min DO Eusebio Ball Work Phone: [facility] 05-18-2022 11:40-0400 SaO2% (BldA) [Mass fraction] 99 % DO Eusebio Ball Work Phone: [facility] 05-18-2022 11:40-0400 Systolic blood pressure 172 mm[Hg] DO Eusebio Ball Work Phone: [facility] 05-18-2022 08:57-0400 Body height 182.88 cm DO Eusebio Ball Work Phone: [facility] 05-18-2022 08:57-0400 Body weight 75.29 kg DO Eusebio Ball Work Phone: [facility] 05-09-2022 13:45-0400 Body temperature 98 [degF] DO Eusebio Ball Work Phone: [facility] 05-09-2022 13:45-0400 Body weight 75.43 kg DO Eusebio Ball Work Phone: [facility] 05-09-2022 13:45-0400 Diastolic blood pressure 80 mm[Hg] DO Eusebio Ball Work Phone: [facility] 05-09-2022 13:45-0400 Heart rate 73 /min DO Eusebio Ball Work Phone: [facility] 05-09-2022 13:45-0400 Respiratory rate 20 /min DO Eusebio Ball Work Phone: [facility] 05-09-2022 13:45-0400 SaO2% (BldA) [Mass fraction] 99 % DO Eusebio Ball Work Phone: [facility] 05-09-2022 13:45-0400 Systolic blood pressure 126 mm[Hg] DO Eusebio Ball Work Phone: [facility] 05-09-2022 08:47-0400 Body height 182.88 cm DO Eusebio Ball Work Phone: [facility] 04-20-2022 12:00-0400 Body height 185.42 cm Angel Joyce Other [facility] [employer] Other 04-20-2022 12:00-0400 Body mass index (BMI) [Ratio] 21.98 kg/m2 Angel Joyce Other [employer] Other 04-20-2022 12:00-0400 Body weight 75.57 kg Angel Joyce Other [employer] Other 04-20-2022 12:00-0400 Diastolic blood pressure 73 mm[Hg] Angel Joyce Other [employer] Other 04-20-2022 12:00-0400 Respiratory rate 16 /min Angel Joyce Other [employer] Other 04-20-2022 12:00-0400 SaO2% (BldA) [Mass fraction] 97 % Angel Joyce Other [facility] [employer] Other 04-20-2022 12:00-0400 Systolic blood pressure 111 mm[Hg] Angel Joyce Other [employer] Other 04-10-2022 02:06-0400 Diastolic blood pressure 82 mm[Hg] DO Eusebio Ball Work Phone: [facility] 04-10-2022 02:06-0400 Heart rate 71 /min DO Eusebio Ball Work Phone: [facility] 04-10-2022 02:06-0400 Respiratory rate 18 /min DO Eusebio Ball Work Phone: [facility] 04-10-2022 02:06-0400 SaO2% (BldA) [Mass fraction] 99 % DO Eusebio Ball Work Phone: [facility] 04-10-2022 02:06-0400 Systolic blood pressure 156 mm[Hg] DO Eusebio Ball Work Phone: [facility] 04-09-2022 23:48-0400 Body temperature 97.2 [degF] DO Eusebio Ball Work Phone: [facility] 04-09-2022 21:52-0400 Body height 182.88 cm DO Eusebio Ball Work Phone: [facility] 04-09-2022 21:52-0400 Body weight 77.11 kg DO Eusebio Ball Work Phone: [facility] 03-29-2022 16:20-0400 Body height 185.42 cm Angel Joyce Other [employer] Other 03-29-2022 16:20-0400 Body mass index (BMI) [Ratio] 23.4 kg/m2 Angel Joyce Other [employer] Other 03-29-2022 16:20-0400 Body temperature 96.4 [degF] Angel Joyce Other [employer] Other 03-29-2022 16:20-0400 Body weight 80.47 kg Angel Joyce Other [employer] Other 03-29-2022 16:20-0400 Diastolic blood pressure 88 mm[Hg] Angel Joyce Other [employer] Other 03-29-2022 16:20-0400 Respiratory rate 18 /min Angel Joyce Other [employer] Other 03-29-2022 16:20-0400 SaO2% (BldA) [Mass fraction] 98 % Angel Joyce Other [employer] Other 03-29-2022 16:20-0400 Systolic blood pressure 161 mm[Hg] Angel Joyce Other [employer] Other 12-19-2021 10:40-0400 Body height 185.42 cm Angel Joyce Other [employer] Other 12-19-2021 10:40-0400 Body mass index (BMI) [Ratio] 22.32 kg/m2 Angel Joyce Other [employer] Other 12-19-2021 10:40-0400 Body temperature 97.6 [degF] Angel Joyce Other [employer] Other 12-19-2021 10:40-0400 Body weight 76.75 kg Angel Joyce Other [employer] Other 12-19-2021 10:40-0400 Diastolic blood pressure 90 mm[Hg] Angel Joyce Other [facility] [employer] Other 12-19-2021 10:40-0400 Respiratory rate 18 /min Angel Joyce Other [facility] [employer] Other 12-19-2021 10:40-0400 SaO2% (BldA) [Mass fraction] 99 % Angel Joyce Other [facility] [employer] Other 12-19-2021 10:40-0400 Systolic blood pressure 160 mm[Hg] Angel Joyce Other [facility] [employer] Other 12-07-2021 09:25-0400 Body height 185.42 cm DO Eusebio Ball Work Phone: [facility] 12-07-2021 09:25-0400 Body weight 75.56 kg DO Eusebio Ball Work Phone: [facility] 11-24-2021 13:12-0400 Body height 185.42 cm Eusebio E Ball Work Phone: [facility] [employer] 250 DO Work Phone: 11-24-2021 13:12-0400 Body mass index (BMI) [Ratio] 23.38 kg/m2 Eusebio E Ball Work Phone: [facility] [employer] 250 DO Work Phone: 11-24-2021 13:12-0400 Body surface area Derived from formula 2.04 m2 Eusebio E Ball Work Phone: [facility] [employer] 250 DO Work Phone: 11-24-2021 13:12-0400 Body weight 80.38 kg Eusebio E Ball Work Phone: [facility] [employer] [facility] DO Work Phone: 11-24-2021 13:12-0400 Diastolic blood pressure 78 mm[Hg] Eusebio E Ball Work Phone: [facility] 250 DO Work Phone: 11-24-2021 13:12-0400 Heart rate 83 /min Eusebio E Ball Work Phone: [facility] 250 DO Work Phone: 11-24-2021 13:12-0400 Systolic blood pressure 126 mm[Hg] Eusebio E Ball Work Phone: [facility] 250 DO Work Phone: 11-15-2021 00:00-0400 42 1 Eusebio E Ball Work Phone: [facility] [employer] 250 DO Work Phone: Comment on above: [id number] 11-08-2021 14:00-0400 Body height 185.42 cm Angel Joyce Other [employer] Other 11-08-2021 14:00-0400 Body mass index (BMI) [Ratio] 26.01 kg/m2 Angel Joyce Other [employer] Other 11-08-2021 14:00-0400 Body temperature 98.4 [degF] Angel Joyce Other [employer] Other 11-08-2021 14:00-0400 Body weight 89.45 kg Angel Joyce Other [employer] Other 11-08-2021 14:00-0400 Diastolic blood pressure 103 mm[Hg] Angel Joyce Other [employer] Other 11-08-2021 14:00-0400 Respiratory rate 18 /min Angel Joyce Other [employer] Other 11-08-2021 14:00-0400 SaO2% (BldA) [Mass fraction] 96 % Angel Joyce Other [employer] Other 11-08-2021 14:00-0400 Systolic blood pressure 164 mm[Hg] Angel Joyce Other [employer] Other Encounters Encounter Date Encounter Type Care Provider Facility Start: 04-01-2025 End: 04-01-2025 ambulatory Eusebio Ball DO Work Phone: [facility] Work Phone: Start: 04-01-2025 End: 04-01-2025 Patient encounter procedure Romain Mendoza MD -[facility] Work Phone: Start: 02-09-2025 Non-patient / Non-visit Bryce marin MD -[facility] Work Phone: Start: 01-21-2025 End: 01-21-2025 Admission to same day surgery center Eusebio Ball DO Work Phone: [facility]-[employer] Work Phone: Start: 01-21-2025 End: 01-21-2025 ambulatory Eusebio Ball DO Work Phone: [facility] Work Phone: Start: 01-19-2025 End: 01-19-2025 Patient encounter procedure Eusebio Ball DO Work Phone: [facility]-Pre-Surgical Testing Work Phone: Start: 01-19-2025 End: 01-19-2025 ambulatory Eusebio Ball DO Work Phone: [facility] Work Phone: Start: 01-19-2025 Encounter for preprocedural laboratory examination Denilson Gomez [facility] Start: 01-13-2025 Non-patient / Non-visit Bryce marin MD -[facility] Work Phone: Start: 01-12-2025 End: 01-12-2025 ambulatory Eusebio Olivares DO Work Phone: [facility] Work Phone: Start: 01-12-2025 End: 01-12-2025 Patient encounter procedure Eusebio Olivares DO Work Phone: [facility] Work Phone: Start: 12-22-2024 End: 12-22-2024 ambulatory [facility] Start: 12-17-2024 Non-patient / Non-visit Bg Olivares DO Work Phone: [facility] Work Phone: Start: 12-16-2024 End: 12-17-2024 Emergency department patient visit Eusebio Olivares DO Work Phone: [facility]-Emergency Room Work Phone: Start: 12-10-2024 End: 12-10-2024 Bamboo flowsheet David Berg DPM Work Phone: [facility] Start: 12-10-2024 End: 12-10-2024 Bamboo flowsheet David Berg DPM Work Phone: [facility] Start: 12-10-2024 End: 12-10-2024 ambulatory DAVID BERG Not Available Start: 12-10-2024 End: 12-10-2024 Patient encounter procedure David Berg DPM Work Phone: [facility] Comment on above: Type 2 diabetes cece itus without complication, with long-term current use of insulin (Primary Dx); Pain due to onychomycosis of toenails of both feet; Hav (hallux abducto valgus), left Start: 12-10-2024 Non-patient / Non-visit Benjam in Ball DO Work Phone: [facility] Work Phone: Start: 11-24-2024 End: 11-24-2024 Office outpatient visit 25 minutes [facility] Work Phone: [facility] Comment on above: ASHD (arteriosclerot ic heart disease); History of [place] (myocardial infarction); Status post insertion of drug eluting coronary artery stent; Aortic valve disorder; ESRD (end stage renal disease) on dialysis (Multi); Vapes nicotine containing substance Start: 11-24-2024 End: 11-24-2024 ambulatory [facility] Start: 11-19-2024 ambulatory [facility] Start: 11-09-2024 Non-patient / Non-visit Benjam in Ball DO Work Phone: [facility] Work Phone: Start: 11-06-2024 Non-patient / Non-visit Benjam in Ball DO Work Phone: [facility] Work Phone: Start: 11-03-2024 End: 11-03-2024 ambulatory [facility] Start: 11-03-2024 End: 11-03-2024 ambulatory [facility] Start: 11-02-2024 Non-patient / Non-visit Benjam in Ball DO Work Phone: [facility] Work Phone: Start: 11-01-2024 End: 11-02-2024 ambulatory Essam Elashi Facility:[facility] Start: 11-01-2024 End: 11-02-2024 Evaluation and management of inpatient Eusebio Ball DO Work Phone: [facility] [place] [facility] Work Phone: Start: 11-01-2024 End: 11-02-2024 observation encounter Eusebio Ball DO Work Phone: [facility] Work Phone: Start: 10-30-2024 End: 10-30-2024 Emergency department patient visit Eusebio Ball DO Work Phone: [facility]-Emergency Room Work Phone: Start: 10-27-20[facility] Start: 10-14-2024 End: 10-14-2024 ambulatory Eusebio Ball DO Work Phone: [facility] Work Phone: Start: 10-14-2024 End: 10-14-2024 Patient encounter procedure Eusebio Ball DO Work Phone: [facility] Work Phone: Start: 10-12-2024 Non-patient / Non-visit Benjam in Ball DO Work Phone[facility] Work [facility]: Start: 10-05-2024 Non-patient / Non-visit Benjam in Ball DO Work Phone: [facility] Work Phone: Start: 09-21-2024 Non-patient / Non-visit Benjam in Ball DO Work Phone: [facility] Work Phone: Start: 09-18-2024 Non-patient / Non-visit Benjam in Ball DO Work Phone: [facility] Work Phone: Start: 09-17-2024 Non-patient / Non-visit Benjam in Ball DO Work Phone: [facility] Work Phone: Start: 09-17-2024 Eusebio Ball DO Work Phone: [facility] Work Phone: Start: 09-16-2024 Non-patient / Non-visit Benjam in Ball DO Work Phone: [facility] Work Phone: Start: 09-16-2024 Eusebio Ball DO Work Phone: [facility] Work Phone: Start: 09-16-2024 End: 09-17-2024 Evaluation and management of inpatient Eusebio Ball DO Work Phone: [facility] [place] [facility] Work Phone: Start: 09-16-2024 End: 09-17-2024 Eusebio Ball DO Work Phone: [facility] [place] [facility] Work Phone: Start: 09-15-2024 End: 09-15-2024 ambulatory [facility] Start: 09-11-2024 Non-patient / Non-visit Benjam in Ball DO Work Phone: [facility] Work Phone: Start: 09-08-2024 Encounter for other preprocedural examination [facility] Start: 09-08-2024 ambulatory [facility] Start: 09-08-2024 ambulatory [facility] Start: 09-08-2024 Encounter for other preprocedural examination [facility] Start: 09-02-2024 End: 09-02-2024 ambulatory Eusebio Ball DO Work Phone: [facility] Work Phone: Start: 09-02-2024 End: 09-02-2024 Encounter for general adult medical examination without abnormal findings Eusebio Ball DO Work Phone: [facility] Start: 09-02-2024 End: 09-02-2024 Patient encounter procedure Eusebio Ball DO Work Phone[facility] Work Phone: Start: 09-02-2024 End: 09-02-2024 Eusebio Ball DO Work Phone: [facility] Work Phone: Start: 09-01-2024 End: 09-01-2024 ambulatory [facility] Start: 08-28-2024 Non-patient / Non-visit Benjam in Ball DO Work Phone: [facility] Work Phone: Start: 08-28-2024 Eusebio Ball DO Work Phone: [facility] Work Phone: Start: 08-28-2024 End: 08-29-2024 Evaluation and management of inpatient Eusebio Ball DO Work Phone: [facility] [place] [facility] Work Phone: Start: 08-28-2024 End: 08-29-2024 Eusebio Ball DO Work Phone: [facility] [place] [facility] Work Phone: Start: 08-21-2024 Non-patient / Non-visit Benjam in Ball DO Work Phone: [facility] Work Phone: Start: 08-21-2024 Eusebio Ball DO Work Phone: [facility] Work Phone: Start: 08-17-2024 End: 08-17-2024 External Result Encounter Donna Shaw NP Work Phone: [facility] Unsolicited Start: 08-17-2024 End: 08-17-2024 External Result Encounter Donna Villeda Colin [employer] Work Phone: [facility] Unsolicited Start: 08-17-2024 End: 08-17-2024 Eusebio Ball DO Work Phone: [facility]-Emergency Room Work Phone: Start: 08-17-2024 End: 08-17-2024 Emergency department patient visit Eusebio Ball DO Work Phone: [facility]Emergency [facility] Work Phone: Start: 08-16-2024 Patient encounter status Thanh lopez Ball DO Work Phone: [facility] Start: 08-13-2024 End: 08-13-2024 ambulatory [facility] Start: 08-13-2024 ambulatory [facility] Start: 08-13-2024 Encounter for preprocedural cardiovascular examination [facility] Start: 08-11-2024 Non-patient / Non-visit Benjam in Ball DO Work Phone: [facility] [place] Work Phone: Start: 08-11-2024 Eusebio Ball DO Work Phone: [facility] Work Phone: Start: 08-04-2024 Non-patient / Non-visit Benjam in Ball DO Work Phone: [facility] Work Phone: Start: 08-04-2024 Eusebio Ball DO Work Phone: [facility] Work Phone: Start: 08-01-2024 End: 08-01-2024 Eusebio Ball DO Work Phone: [facility]-Emergency Room Work Phone: Start: 08-01-2024 End: 08-01-2024 Emergency department patient visit Eusebio Ball DO Work Phone: [facility]Emergency [facility] Work Phone: Start: 07-14-2024 End: 07-14-2024 ambulatory JO CHARLES [facility] Start: 07-14-2024 ambulatory YESIKA CARDENAS [facility] Start: 07-13-2024 Non-patient / Non-visit Benjam in Ball DO Work Phone: [facility] [place] Work Phone: Start: 07-13-2024 Eusebio Olivares DO Work Phone: [facility] Work Phone: Start: 06-22-2024 Non-patient / Non-visit Benjam in Ball DO Work Phone: [facility] Work Phone: Start: 06-22-2024 End: 06-22-2024 Evaluation and management of inpatient Eusebio Ball DO Work Phone: [facility] [place] [facility] Work Phone: Start: 06-22-2024 End: 06-22-2024 Eusebio Ball DO Work Phone: [facility] Work Phone: Start: 06-22-2024 End: 06-22-2024 ambulatory Angel Joyce Facility:[facility] Start: 06-15-2024 Non-patient / Non-visit Benjam in Ball DO Work Phone: [facility] [place] Work Phone: Start: 06-11-2024 End: 06-11-2024 Office outpatient visit 40 minutes Brianna Gomez DO Work Phone: [facility] Comment on above: ASHD (arteriosclerot ic heart disease); Congestive heart failure, unspecified HF chronicity, unspecified heart failure type; Essential hypertension, benign; History of [place] (myocardial infarction); Mixed hyperlipidemia; Status post insertion of drug eluting coronary artery stent; ESRD (end stage renal disease) on dialysis (Multi); Type 2 diabetes mellitus with chronic kidney disease on chronic dialysis, with long-term current use of insulin (Multi); BMI 21.0-21.9, adult; Current every day smoker Start: 06-11-2024 End: 06-11-2024 ambulatory [facility] Ambulatory Start: 06-04-2024 End: 06-04-2024 Bamboo flowsheet David Berg DPM Work Phone: [facility] Start: 06-04-2024 End: 06-04-2024 Bamboo flowsheet David Berg DPM Work Phone: [facility] Start: 06-04-2024 End: 06-04-2024 Patient encounter procedure David Berg DPM Work Phone: [facility] Comment on above: Type 2 diabetes cece itus without complication, with long-term current use of insulin ([facility]) (Primary Dx); Pain due to onychomycosis of toenails of both feet; Hav (hallux abducto valgus), left Start: 06-04-2024 End: 06-04-2024 ambulatory DAVID BERG Not Available Start: 04-29-2024 End: 04-29-2024 ambulatory DO Eusebio Olivares Work Phone: [facility] Work Phone: Start: 04-29-2024 End: 04-29-2024 Patient encounter procedure DO Eusebio Olivares Work Phone: [facility] Work Phone: Start: 04-11-2024 Non-patient / Non-visit DO Lauri Olivares Work Phone: [facility] Work Phone: Start: 03-26-2024 End: 03-26-2024 ambulatory DAVID BERG Not Available Start: 03-19-2024 End: 03-19-2024 ambulatory DO Eusebio Ball Work Phone: [facility] Work Phone: Start: 03-19-2024 End: 03-19-2024 Patient encounter procedure DO Eusebio Ball Work Phone: [facility] Work Phone: Start: 03-11-2024 Non-patient / Non-visit DO Lauri amy Ball Work Phone[facility] Work Phone: Start: 03-09-2024 Non-patient / Non-visit DO Lauri amy Ball Work Phone: [facility] Nephrology Work Phone: Start: 03-09-2024 End: 03-10-2024 Evaluation and management of inpatient DO Eusebio Ball Work Phone: [facility] [place] [facility] Work Phone: Start: 03-04-2024 Non-patient / Non-visit DO Lauri amy Ball Work Phone: [facility] Work Phone: Start: 03-01-2024 Non-patient / Non-visit DO Lauri amy Ball Work Phone: [facility] Nephrology Work Phone: Start: 03-01-2024 End: 03-02-2024 Evaluation and management of inpatient DO Eusebio Ball Work Phone: [facility]-4 [facility] Work Phone: Start: 02-29-2024 Non-patient / Non-visit DO Lauri amy Ball Work Phone: [facility] Work Phone: Start: 02-10-2024 Non-patient / Non-visit DO Lauri amy Ball Work Phone: [facility] Work Phone: Start: 01-13-2024 Non-patient / Non-visit DO Lauri Olivares Work Phone: [facility] Work Phone: Start: 01-11-2024 Non-patient / Non-visit DO Lauri Olivares Work Phone: [facility] Work Phone: Start: 01-10-2024 End: 01-10-2024 ambulatory DO Eusebio Olivares Work Phone: [facility] Work Phone: Start: 01-10-2024 End: 01-10-2024 Departed Referred DO Eusebio Olivares Work Phone: [facility]-Dialysis Work Phone: Start: 01-09-2024 End: 01-09-2024 ambulatory DAVID BERG Not Available Start: 01-09-2024 End: 01-09-2024 ambulatory DO Eusebio Olivares Work Phone: [facility] Work Phone: Start: 01-09-2024 End: 01-09-2024 Patient encounter procedure DO Eusebio Olivares Work Phone: [facility] Vascular Surgery Work Phone: Start: 12-11-2023 Non-patient / Non-visit DO Lauri Olivares Work Phone: [facility] Work Phone: Start: 12-03-2023 End: 12-03-2023 Office outpatient visit 25 minutes Brianna Gomez DO Work Phone: [facility] Comment on above: ASHD (arteriosclerot ic heart disease); Essential hypertension, benign; Mixed hyperlipidemia; History of [place] (myocardial infarction); Status post insertion of drug eluting coronary artery stent; ESRD (end stage renal disease) on dialysis (Multi); Current every day smoker; Type 2 diabetes mellitus with chronic kidney disease on chronic dialysis, with long-term current use of insulin (Multi); BMI 22.0-22.9, adult Start: 11-26-2023 Non-patient / Non-visit DO Lauri Olivares Work Phone: [facility] Vascular Surgery Work Phone: Start: 11-26-2023 End: 11-26-2023 Admission to same day surgery center DO Eusebio Olivares Work Phone: [facility]-Surgery Center [place] Start: 11-26-2023 End: 11-26-2023 ambulatory DO Eusebio Olivares Work Phone: [facility] Work Phone: Start: 11-18-2023 End: 11-19-2023 ambulatory Robyn GUERIN Facility:[facility] Start: 11-18-2023 End: 11-18-2023 Patient encounter procedure Robyn GUERIN [facility] Start: 11-14-2023 End: 11-14-2023 ambulatory DO Eusebio Olivares Work Phone: [facility] Work Phone: Start: 11-14-2023 End: 11-14-2023 Patient encounter procedure DO Eusebio Olivares Work Phone: [facility] Work Phone: Start: 11-10-2023 Non-patient / Non-visit DO Lauri Olivares Work Phone: [facility] Work Phone: Start: 10-31-2023 Non-patient / Non-visit DO Lauri Olivares Work Phone: [facility] Vascular Surgery Work Phone: Start: 10-31-2023 End: 10-31-2023 Admission to same day surgery center DO Eusebio Olivares Work Phone: [facility]-Interventional Radiology Work Phone: Start: 10-31-2023 End: 10-31-2023 ambulatory DO Eusebio Olivares Work Phone: [facility] Work Phone: Start: 10-17-2023 End: 10-17-2023 Patient encounter procedure DO Eusebio Olivares Work Phone: [facility] Vascular Surgery Work Phone: Start: 10-17-2023 End: 10-17-2023 Patient encounter procedure DO Eusebio Olivares Work Phone: [facility] Palliative Care Work Phone: Start: 10-12-2023 Non-patient / Non-visit DO Lauri Olivares Work Phone: [facility] [place] Work Phone: Start: 10-02-2023 End: 10-02-2023 Emergency department patient visit DO Eusebio Olivares Work Phone: [facility]-Emergency Room Work Phone: Start: 10-01-2023 End: 10-01-2023 Patient encounter procedure DO [facility]usebio Olivares [facility] Work Phone: Start: 10-01-2023 Registered Recurring DO Bg Olivares Work Phone: [facility]-Cancer Center Acute Work Phone: Start: 09-30-2023 End: 09-30-2023 Office outpatient visit 15 minutes Nelida Carrington [employer] Work Phone: [facility] Comment on above: Left shoulder pain, unspecified chronicity (Primary Dx); Impingement of left shoulder; Internal derangement of left shoulder Start: 09-24-2023 External Result Encounter Va Forte [employer] Work Phone: [facility] External [facility] Unsolicited Start: 09-24-2023 External Result Encounter Va Forte [employer] Work Phone: [facility] External Department Unsolicited Start: 09-05-2023 End: 09-05-2023 ambulatory Eusebio Olivares Other [email or web address] Other Start: 09-05-2023 Telephone encounter Eusebio [facility] Start: 08-29-2023 Office outpatient vi sit 10 minutes Romain Mendoza [facility] Vascular Surgery Start: 08-29-2023 End: 08-29-2023 ambulatory DO Eusebio Olivares Work Phone: [facility] Work Phone: Start: 08-29-2023 End: 08-29-2023 Patient encounter procedure DO Eusebio Olivares Work Phone: [facility]-Ultrasound [facility] Vascular Start: 08-29-2023 End: 08-29-2023 Patient encounter procedure DO Eusebio Olivares Work Phone: [facility] Vascular Surgery Work Phone: Start: 08-26-2023 End: 08-26-2023 ambulatory Eusebio Olivares Other [email or web address] Other Start: 08-26-2023 Telephone encounter Eusebio LEMUS [facility] Start: 08-18-2023 End: 08-18-2023 Evaluation and management of inpatient DO Eusebio Olivares Work Phone: [facility] [place] [facility] S[facility] Work Phone: Start: 08-18-2023 End: 08-18-2023 observation encounter DO Eusebio Olivares Work Phone: [facility] Work Phone: Start: 08-13-2023 End: 08-13-2023 ambulatory Eusebio Olivares Other [email or web address] Other Start: 08-13-2023 Office outpatient vi sit 25 minutes Eusebio Olivares [facility] Start: 08-13-2023 End: 08-13-2023 Patient encounter procedure DO Eusebio Olivares Work Phone: [facility] Work Phone: Start: 07-22-2023 End: 07-22-2023 ambulatory Eusebio Olivares Other [email or web address] Other Start: 07-22-2023 Telephone encounter Eusebio Olivares [facility] Start: 07-16-2023 End: 07-16-2023 ambulatory Eusebio Olivares Other [email or web address] Other Start: 07-16-2023 Office outpatient vi sit 25 minutes Eusebio Olivares [facility] Start: 07-16-2023 End: 07-16-2023 Patient encounter procedure DO Eusebio Olivares Work Phone: [facility] Work Phone: Start: 07-04-2023 End: 07-04-2023 ambulatory Romain Mendoza Other [email or web address] Other Start: 07-04-2023 Office outpatient vi sit 10 minutes Romain Mendoza [facility] Vascular Surgery Start: 07-02-2023 End: 07-02-2023 ambulatory DO Eusebio Olivares Work Phone: [facility] Work Phone: Start: 07-02-2023 End: 07-02-2023 Patient encounter procedure DO Eusebio Olivares Work Phone: [facility]-Ultrasound [facility] Vascular Start: 06-17-2023 End: 06-17-2023 Admission to same day surgery center DO Eusebio Olivares Work Phone: [facility]-Interventional Radiology Work Phone: Start: 06-17-2023 End: 06-17-2023 ambulatory DO Eusebio Olivares Work Phone: [facility] Work Phone: Start: 06-13-2023 Office outpatient vi sit 15 minutes Zina Childs [facility] Start: 06-13-2023 End: 06-13-2023 ambulatory DO Eusebio Ball Work Phone: [employer] Other Start: 06-13-2023 End: 06-13-2023 Patient encounter procedure DO Eusebio Ball Work Phone: [facility]-Ultrasound [facility] Vascular Start: 05-28-2023 End: 05-28-2023 ambulatory Eusebio Olivares Other [employer] Other Start: 05-28-2023 Office outpatient vi sit 15 minutes Eusebio Ball [facility] Start: 04-23-2023 Rx Renewal Eusebio E Bal l Work Phone: -[facility] Heart-[place] 250 DO Work Phone: Start: 04-12-2023 End: 04-12-2023 Admission to same day surgery center DO Eusebio Olivares Work Phone: [facility]-Interventional Radiology Work Phone: Start: 04-12-2023 End: 04-12-2023 ambulatory DO Eusebio Olivares Work Phone: [facility] Work Phone: Start: 04-10-2023 End: 04-10-2023 ambulatory Romain Mendoza Other [facility] [employer] Other Start: 04-10-2023 Office outpatient vi sit 15 minutes Romain Mendoza [facility] Start: 04-10-2023 Telephone encounter Romain mcdonough [facility] Start: 04-10-2023 End: 04-10-2023 Patient encounter procedure DO Eusebio Taye Work Phone: [facility]-Ultrasound [facility] Vascular Start: 03-26-2023 End: 03-26-2023 ambulatory DO Eusebio Ball Work Phone: [facility] Ctr Work Phone: Start: 03-26-2023 End: 03-26-2023 Registered Recurring DO Eusebio Ball Work Phone: [facility]-Cancer Center Work Phone: Start: 02-27-2023 Office outpatient vi sit 25 minutes Angel Joyce [facility] Start: 02-27-2023 End: 02-27-2023 Patient encounter procedure Zina Childs Other [facility]-Ultrasound [facility] Vascular Start: 02-27-2023 Telephone encounter Angel Joyce [facility] Start: 02-27-2023 Registered Recurring DO Bg in [employer] [facility]: [facility] [place] Work Phone: Start: 02-27-2023 End: 02-27-2023 ambulatory DO Eusebio Olivares Work Phone: [facility] [employer] Other Start: 02-26-2023 Office outpatient vi sit 15 minutes [facility] Work Phone: Start: 02-26-[address] Brianna joseph [place] Facility: Start: 02-11-2023 End: 02-11-2023 ambulatory Angel Joyce Other [facility] [employer] Other Start: 02-11-2023 Office outpatient vi sit 15 minutes Angel Joyce [facility] Start: 02-07-2023 Rx Renewal Eusebio almaraz Work Phone: [facility] DO Work Phone: Start: 02-07-2023 Rx Renewal Eusebio almaraz Work Phone: [facility] DO Work Phone: Start: 02-04-2023 Telephone encounter [facility] Start: 02-04-2023 End: 02-04-2023 Admission to same day surgery center DO Eusebio Olivares Work Phone: [facility]-[employer] M[employer] Technician Work Phone: Start: 02-04-2023 End: 02-04-2023 ambulatory DO Eusebio Taye Work Phone: [facility] Work Phone: Start: 01-31-2023 Chart Update Eusebio almaraz Work Phone: [facility] 250 DO Work Phone: Start: 01-31-2023 End: 01-31-2023 ambulatory DO Eusebio Olivares Work Phone: [facility] Work Phone: Start: 01-31-2023 End: 01-31-2023 Patient encounter procedure DO Eusebio Olivares Work Phone: [facility]-Pre-Surgical Testing Work Phone: Start: 01-23-2023 End: 01-23-2023 ambulatory Romain Mendoza Other [facility] [employer] Other Start: 01-23-2023 Postop follow up vis it related to original px Romain Mendoza [facility] Vascular Surgery Start: 01-16-2023 Rx Renewal Eusebio almaraz Work Phone: [facility] 250 DO Work Phone: Start: 01-16-2023 Office outpatient vi sit 40 minutes Eusebio Olivares Work Phone: [facility] 250 DO Work Phone: Start: 01-16-[address] Brianna Gomez Facility: Start: 01-09-[address] Eusebio Olivares Facility:[id number] Start: 01-09-2023 End: 01-09-2023 Evaluation and management of inpatient DO Eusebio Taye Work Phone: [facility] [place] Work Phone: Start: 12-25-2022 End: 12-25-2022 Emergency department patient visit DO Robyn Jose Work Phone: [facility]-Emergency Room Work Phone: Start: 12-25-2022 End: 12-25-2022 ambulatory DO Robyn Jose Work Phone: [facility] Work Phone: Start: 12-25-2022 End: 12-25-2022 Patient encounter procedure DO Robyn Jose Work Phone: [facility]-Lab [place] Work Phone: Start: 12-18-2022 End: 12-18-2022 Admission to same day surgery center DO Robyn Jose Work Phone: [facility]-Surgery Center [place] Start: 12-11-2022 End: 12-11-2022 Admission to same day surgery center DO Robyn Jose Work Phone: [facility]-Interventional Radiology Work Phone: Start: 12-11-2022 End: 12-11-2022 ambulatory DO Robyn Jose Work Phone: [facility] Work Phone: Start: 12-06-2022 (INJECTION) INJECTION Angel Joyce [facility] Start: 12-06-2022 End: 12-06-2022 ambulatory Angel Joyce Other [facility] [employer] Other Start: 12-04-2022 End: 12-04-2022 Admission to same day surgery center DO Eusebio Olivares Work Phone: [facility]-Interventional Radiology Work Phone: Start: 12-04-2022 End: 12-04-2022 ambulatory DO Eusebio Olivares Work Phone: [facility] Work Phone: Start: 11-28-2022 End: 11-28-2022 Patient encounter procedure Zina Childs [facility] Start: 11-28-2022 End: 11-28-2022 ambulatory DO Eusebio Ball Work Phone: [employer] Other Start: 11-26-2022 End: 11-26-2022 ambulatory Angel Joyce Other [employer] Other Start: 11-26-2022 Telephone encounter Angel Joyce [facility] Start: 11-20-2022 End: 11-20-2022 ambulatory DO Eusebio Ball Work Phone: [facility] Work Phone: Start: 11-20-2022 End: 11-20-2022 Patient encounter procedure DO Eusebio Ball Work Phone: [facility]-Lab [place] Work Phone: Start: 11-19-2022 End: 11-19-2022 ambulatory Angel Joyce Other [employer] Other Start: 11-19-2022 Office outpatient vi sit 25 minutes Angel Joyce [facility]: [facility] Brianna Gomez, Status: Pen, Time: 2:00 PM Eusebio Olivares Work Phone: [facility]-[place] 250 DO Work Phone: Start: 11-14-2022 End: 11-14-2022 ambulatory DO Eusebio Ball Work Phone: [facility] [employer] Other Start: 11-14-2022 End: 11-14-2022 Departed Referred DO Eusebio Ball Work Phone: [facility] Ctr-[employer] Work Phone: Start: 11-14-2022 Telephone encounter Angel Joyce [facility] Start: 11-13-2022 Chart Update Eusebio almaraz Work Phone: [facility] 250 DO Work Phone: Start: 11-12-2022 Telephone encounter Eusebio LEMUS [facility] Start: 11-12-2022 End: 11-12-2022 ambulatory DO Eusebio Olivares Work Phone: [facility] Work Phone: Start: 11-12-2022 End: 11-12-2022 Patient encounter procedure DO Eusebio Olivares Work Phone: [facility]-Pre-Surgical Testing Work Phone: Start: 11-06-2022 Telephone encounter Eusebio Olivares Work Phone: [facility] 250 DO Work Phone: Start: 10-23-2022 End: 10-23-2022 ambulatory Eusebio Olivares Other [facility] [employer] Other Start: 10-23-2022 Telephone encounter Eusebio LEMUS [facility] Start: 10-18-2022 Office outpatient vi sit 25 minutes Eusebio Olivares Work Phone: [facility] 250 DO Work Phone: Start: 10-18-[address] Eusebio Olivares Facility: Start: 10-16-2022 End: 10-16-2022 ambulatory Angel Joyce Other [facility] [employer] Other Start: 10-16-2022 Office outpatient vi sit 25 minutes Angel Joyce [facility] Start: 10-10-2022 End: 10-10-2022 Patient encounter procedure DO Eusebio Olivares Work Phone: [facility]-Lab [place] Work Phone: Start: 10-10-2022 End: 10-10-2022 ambulatory DO Eusebio Taye Work Phone: [facility] Work Phone: Start: 10-08-2022 End: 10-08-2022 ambulatory Eusebio Taye Other [facility] [employer] Other Start: 10-08-2022 Office outpatient vi sit 25 minutes Euesbio GUTIERREZ [facility] Start: 10-03-[address] Eusebio Olivares Facility:[id number] Start: 10-03-2022 End: 10-03-2022 Evaluation and management of inpatient DO Zeus Bradley Work Phone: [facility] [place] Work Phone: Start: 10-03-2022 End: 10-03-2022 observation encounter DO Zeus Bradley Work Phone: [facility] Work Phone: Start: 09-17-2022 End: 09-17-2022 Admission to same day surgery center DO Eusebio Taye Work Phone: [facility]-Surgery Center [place] Start: 09-17-2022 End: 09-17-2022 ambulatory DO Eusebio Taye Work Phone: [facility] Work Phone: Start: 09-12-2022 ambulatory ANGEL JOYCE Facility:H 1 Start: 09-10-2022 End: 09-10-2022 Patient encounter procedure DO Eusebio aTye Work Phone: [facility]-Pre-Surgical Testing Work Phone: Start: 09-10-2022 End: 09-10-2022 ambulatory DO Eusebio Taye Work Phone: [facility] Work Phone: Start: 09-10-2022 End: 09-10-2022 Registered Recurring DO Eusebio Taye Work Phone: [facility]-Cancer Center Work Phone: Start: 09-05-2022 End: 09-05-2022 ambulatory DO Eusebio Taye Work Phone: [facility] Work Phone: Start: 09-05-2022 Office outpatient ne w 45 minutes Romain Mendoza [facility] Start: 09-05-2022 End: 09-05-2022 Patient encounter procedure DO Eusebio Olivares Work Phone: [facility] Ctr-Ultrasound [place] Work Phone: Start: 09-01-2022 Registered Recurring DO Bg in Ball Work Phone: [facility]-Cancer Center Work Phone: Start: 08-30-2022 End: 08-30-2022 ambulatory Angel Joyce Other [email or web address] Other Start: 08-30-2022 Office outpatient vi sit 25 minutes Angel Joyce [facility] Start: 08-30-2022 Telephone encounter Angel Joyce [facility] Nephrology Start: 08-29-2022 End: 08-29-2022 Patient encounter procedure Robyn GUERIN [facility] Start: 08-17-2022 End: 08-17-2022 ambulatory DO Eusebio Olivares Work Phone: [facility] Work Phone: Start: 08-17-2022 End: 08-17-2022 Patient encounter procedure DO Eusebio Olivares Work Phone: [facility] C[facility]-Lab [place] Work Phone: Start: 08-13-2022 End: 08-13-2022 Evaluation and management of inpatient DO Eusebio Olivares Work Phone: [facility] [place] [facility] Work Phone: Start: 08-13-2022 End: 08-13-2022 observation encounter DO Eusebio Olivares Work Phone: [facility] Work Phone: Start: 08-02-2022 Telephone encounter [facility] Comment on above: Returning Patient's Call Start: 07-19-2022 Chart Update Eusebio almaraz Work Phone: [facility] 250 DO Work Phone: Start: 07-19-2022 End: 07-19-2022 Patient encounter procedure DO Eusebio Ball Work Phone: [facility]-Electrodiagnostics Work Phone: Start: 07-19-[address] Eusebio Olivares Facility:[id number] Start: 07-15-2022 Adult health examination Matth rosa Mendoza Other [employer] Other Start: 07-09-2022 End: 07-09-2022 Emergency department patient visit DO Eusebio Olivares Work Phone: [facility]-Emergency Room Start: 07-05-[address] Eusebio Olivares Facility: Start: 07-05-2022 Office outpatient vi sit 25 minutes Eusebio Olivares Work Phone: [facility] DO Work Phone: Start: 07-04-2022 End: 07-04-2022 ambulatory Angel Joyce Other [employer] Other Start: 07-04-2022 Office outpatient vi sit 15 minutes Angel Joyce [facility] Start: 06-29-2022 End: 06-29-2022 ambulatory DO Eusebio Ball Work Phone: [facility] Work Phone: Start: 06-29-2022 End: 06-29-2022 Patient encounter procedure DO Eusebio Ball Work Phone: [facility]-Lab [facility] Start: 06-13-2022 End: 06-13-2022 Emergency department patient visit DO Eusebio Ball Work Phone: [facility]-Emergency Room Start: 06-03-2022 End: 06-03-2022 Emergency department patient visit DO Eusebio Ball Work Phone: [facility]-Emergency Room Start: 05-29-2022 End: 05-29-2022 ambulatory DO Eusebio Olivares Work Phone: [facility] Work Phone: Start: 05-29-2022 End: 05-29-2022 Registered Recurring DO Eusebio Olivares Work Phone: [facility]Can[facility] Center Start: 05-23-2022 End: 05-23-2022 ambulatory Angel Joyce Other [email or web address] Other Start: 05-23-2022 Office outpatient vi sit 25 minutes Angel Joyce [facility] Start: 05-21-2022 End: 05-22-2022 Emergency department patient visit DO Eusebio Olivares Work Phone: [facility]-Emergency Room Start: 05-18-2022 End: 05-18-2022 Admission to same day surgery center DO Eusebio Olivares Work Phone: [facility]-CT Scan [facility] Start: 05-18-2022 End: 05-18-2022 ambulatory DO Eusebio Olivares Work Phone: [facility] Work Phone: Start: 05-15-2022 Registered Recurring DO Bg in [employer] Work Phone: [facility] Start: 05-09-2022 End: 05-09-2022 Registered Recurring DO Eusebio Olivares Work Phone: [facility] Start: 04-29-2022 End: 04-29-2022 ambulatory Angel Joyce Other [email or web address] Other Start: 04-29-2022 Telephone encounter Angel Joyce [facility] Start: 04-20-2022 (INJECTION) INJECTION Angel Joyce [facility] Start: 04-20-2022 End: 04-20-2022 ambulatory Angel Joyce Other [email or web address] Other Start: 04-20-2022 Telephone encounter Angel Joyce [facility] Start: 04-20-2022 End: 04-20-2022 Patient encounter procedure DO Eusebio Olivares Work Phone: [facility] Start: 04-09-2022 End: 04-10-2022 Emergency department patient visit DO Eusebio Olivares Work Phone: [facility]-Emergency Room Start: 04-04-2022 End: 04-04-2022 ambulatory Aziz Bakhous Other [email or web address] Other Start: 04-04-2022 Telephone encounter Aziz Bakhous [facility] Start: 03-29-2022 End: 03-29-2022 ambulatory Angel Joyce Other [email or web address] Other Start: 03-29-2022 Office outpatient vi sit 15 minutes Angel Joyce [facility] Start: 03-29-2022 Telephone encounter Angel Joyce [facility] Start: 03-14-2022 End: 03-14-2022 ambulatory Angel Joyce Other [email or web address] Other Start: 03-14-2022 Telephone encounter Angel Joyce [facility] Start: 03-13-2022 End: 03-13-2022 Patient encounter procedure DO Eusebio Ball Work Phone: [facility] Start: 03-09-2022 End: 03-09-2022 Patient encounter procedure DO Eusebio Olivares Work Phone: [facility] Start: 01-24-2022 Rx Renewal Eusebio almaraz Work Phone: [facility] 250 DO Work Phone: Start: 12-25-2021 End: 12-25-2021 Patient encounter procedure DO Eusebio Olivares Work Phone: [facility] [place] Start: 12-19-2021 End: 12-19-2021 ambulatory Angel Joyce Other [email or web address] Other Start: 12-19-2021 Office outpatient vi sit 25 minutes Angel Joyce [facility] Start: 12-18-2021 Registered Recurring DO Pederson in [employer] Work Phone: [facility] Start: 12-15-2021 Rx Renewal Eusebio almaraz Work Phone: [facility] DO Work Phone: Start: 12-01-[address] ADILSON VO [facility] ity:H1 Start: 11-24-2021 Transitional care dat [facility] 7 day discharge Eusebio Olivares Work Phone: [facility] DO Work Phone: Start: 11-08-2021 End: 11-08-2021 ambulatory Angel Joyce Other [email or web address] Other Start: 11-08-2021 Office outpatient ne w 45 minutes Angel Joyce [facility] Start: 11-07-2021 End: 11-07-2021 ambulatory Angel Joyce Other [email or web address] Other Start: 11-07-2021 Telephone encounter Angel Joyce [facility] Start: 10-23-2021 End: 10-24-[address] EUSEBIO OLIVARES Facility:[facility] Start: 10-02-2021 End: 10-02-2021 ambulatory ZITA ALLEN Facility:[facility] Start: 10-01-2021 End: 10-01-2021 Emergency department patient visit BRITTNI PAGAN Facility:[facility] Procedures Date Procedure Procedure Detail Performing Clinician Start: 04-01-2025 Ultrasonography of arteriovenous fistula Eusebio Olivares DO Work Phone: Start: 01-21-2025 CL Closure Device Placement 0 Eusebio Ball DO Work Phone: Start: 01-21-2025 CL FFR/IFR Initial Vessel Eusebio Ball DO Work Phone: Start: 01-21-2025 CL LHC & COR Angio Benj matthews Ball DO Work Phone: Start: 01-21-2025 CL Stent 1st Vessel LAD JUAN C Eusebio Ball DO Work Phone: Start: 01-21-2025 Eusebio B all DO Work Phone: Start: 12-17-2024 Plain chest X-ray Thanh min Ball DO Work Phone: Start: 11-01-2024 CT of abdomen and pe lvis without contrast Eusebio Ball DO Work Phone: Start: 11-01-2024 CT of head without contrast Eusebio Ball DO Work Phone: Start: 11-01-2024 Plain chest X-ray Thanh min Ball DO Work Phone: Start: 11-01-2024 Bacteria identified in Blood by Culture Eusebio Ball DO Work Phone: Start: 11-01-2024 Respiratory Panel (PCR) Eusebio Ball DO Work Phone: Start: 09-17-2024 CT of chest without contrast Eusebio Ball DO Work Phone: Start: 09-15-2024 Computed tomography of abdomen and pelvis with contrast Eusebio Ball DO Work Phone: Start: 09-15-2024 Plain chest X-ray Thanh min Ball DO Work Phone: Start: 09-15-2024 Bacteria identified in Blood by Culture Eusebio Ball DO Work Phone: Start: 09-15-2024 End: 09-15-2024 Viral nucleic acid assay Eusebio Ball D O Work Phone: Start: 08-28-2024 Bacteria identified in Blood by Culture Eusebio Ball DO Work Phone: Start: 08-28-2024 Viral nucleic acid assay Eusebio Ball DO Work Phone: Start: 08-28-2024 Eusebio B all DO Work Phone: Start: 08-28-2024 Viral nucleic acid assay Eusebio Ball DO Work Phone: Start: 08-27-2024 Plain chest X-ray Thanh min Ball DO Work Phone: Start: 08-27-2024 Bacteria identified in Blood by Culture Eusebio Ball DO Work Phone: Start: 08-27-2024 Eusebio B all DO Work Phone: Start: 08-17-2024 Plain chest X-ray Thanh min Ball DO Work Phone: Start: 08-17-2024 COVID-19 / FLU A/B / RSV PCR ([facility] [place]) Donna Shaw [employer] Work Phone: Start: 08-17-2024 End: 08-17-2024 Viral nucleic acid assay Eusebio Olivares D O Work Phone: Start: 08-01-2024 Plain chest X-ray Thanh min Ball DO Work Phone: Start: 06-22-2024 Bacteria identified in Blood by Culture Eusebio Ball DO Work Phone: Start: 06-22-2024 Eusebio B all DO Work Phone: Start: 03-09-2024 Blood culture for bacteria, including anaerobic screen DO Eusebio Ball Work Phone: Start: 03-09-2024 SARS-CoV-2, Influenz a & RSV (PCR) DO Eusebio Ball Work Phone: Start: 03-09-2024 Plain chest X-ray DO Be njamin Ball Work Phone: Start: 03-01-2024 Blood culture for bacteria, including anaerobic screen DO Eusebio Ball Work Phone: Start: 03-01-2024 Respiratory Panel (PCR) DO Eusebio Ball Work Phone: Start: 03-01-2024 SARS-CoV-2, Influenz a & RSV (PCR) DO Eusebio Ball Work Phone: Start: 03-01-2024 Plain chest X-ray DO Be njamin [employer] Work Phone: Start: 11-26-2023 Arteriovenous fistulization DO [employer] Work Phone: Start: 10-31-2023 IR Fistulogram/TLA S tent (Left) DO [employer] Work Phone: Start: 10-02-2023 Plain chest X-ray DO Be njamin [employer] Work Phone: Start: 09-24-2023 Comprehensive metabo lic panel [employer] Work Phone: Start: 08-29-2023 Ultrasonography of arteriovenous fistula DO [employer] Work Phone: Start: 08-20-2023 History of placement of stent for coronary artery disease Status post insertion of drug eluting coronary artery stent Brianna Gomez DO Work Phone: Start: 07-02-2023 Ultrasonography of arteriovenous fistula DO [employer] Work Phone: Start: 06-17-2023 IR Fistulogram/TLA S tent (Left) DO [employer] Work Phone: Start: 06-13-2023 Ultrasonography of arteriovenous fistula DO [employer] Work Phone: Start: 04-12-2023 IR Fistulogram/TLA S tent (Left) DO [employer] Phone: Start: 04-10-2023 Ultrasonography of arteriovenous fistula DO [employer] Work Phone: Start: 02-27-2023 Ultrasonography of arteriovenous fistula DO [employer] Phone: Start: 02-04-2023 CL Stent 1st Vessel RCA JUAN C DO [employer] Work Phone: Start: 12-18-2022 Arteriovenous fistulization DO Robyn Jose Work Phone: Start: 12-11-2022 IR Fistulogram/TLA S tent (Left) DO Robyn Jose Work Phone: Start: 12-04-2022 IR Fistulogram/TLA S tent (Left) DO [employer] Phone: Start: 11-28-2022 Ultrasonography of arteriovenous fistula DO [employer] Phone: Start: 10-02-2022 Plain chest X-ray DO Nas GracePorphy[employer] Work Phone: Start: 09-17-2022 Arteriovenous fistulization DO [employer] Phone: Start: 09-05-2022 Ultrasound (US) dopp ler flow mapping of vein of upper limb DO [employer] Phone: Start: 08-13-2022 Plain chest X-ray DO Be njamin [employer] Phone: Start: 08-12-2022 CT of head without contrast DO [employer] Phone: Start: 06-13-2022 SARS-CoV-2, Influenz a & RSV (PCR) DO [employer] Phone: Start: 06-13-2022 Plain chest X-ray DO Be njamin [employer] Work Phone: Start: 06-03-2022 Plain chest X-ray DO Be njamin [employer] Phone: Start: 05-21-2022 Plain chest X-ray DO Be njamin [employer] Phone: Start: 05-21-2022 Blood culture for bacteria, including anaerobic screen DO [employer] Phone: Start: 05-21-2022 SARS Antigen (LFIA) DO [employer] Phone: Start: 05-18-2022 Bone marrow sampling DO [employer] Phone: Start: 05-15-2022 Dual energy X-ray absorptiometry DO [employer] Phone: Start: 04-09-2022 Plain chest X-ray DO Be njamin [employer] Phone: Blood culture for bacteria, including anaerobic screen DO [employer] Phone: Cardiac catheterization Benj byron Arreguin [employer] Work Phone: Depression screening Romain Mendoza Other History of placement of stent for coronary artery disease Status post insertion of drug eluting coronary artery stent Eusebio Olivares Work Phone: History of placement of stent for coronary artery disease Status post insertion of drug eluting coronary artery stent Brianna Healy Jason DO Work Phone: History of placement of stent for coronary artery disease Status post insertion of drug eluting coronary artery stent Brianna Monet Jason DO Work Phone: History of placement of stent for coronary artery disease Status post insertion of drug eluting coronary artery stent Brianna Healy Jason DO Work Phone: History of placement of stent in anterior descending branch of left coronary artery History of placement of stent in LAD coronary artery DO Eusebio Olivares Work Phone: LT knee scope Robyn GUERIN Operative procedure on knee Eusebio Olivares Work Phone: Placement of stent i n cardiac conduit Robyn GUERIN Surgical procedure o n eye proper Eusebio Olivares Work Phone: Vasectomy Eusebio Olivares Work Phone: Vasectomy Robyndamon GUERIN NEGATED: Highlighted row has not occurred! Total colonoscopy Eusebio Olivares Work Phone: Plan of Treatment Date Care Activity Detail Author Start: 2045 RSV patients and/or patients aged 60+ years (1 - 1-dose 60+ series) RSV patients and/or patients aged 60+ years (1 - 1-dose 60+ series) [facility] Start: 2035 Zoster Vaccines (1 of 2) Zoster Vaccines (1 of 2) [facility] Start: 05-27-2025 End: 05-27-2025 Patient encounter procedure 05/27/2025 10:40 AM EDT Office Visit [facility] [address] [facility] [address] [place] [id number] Brianna Gomez DO [address] [place] [address] [facility] Start: 04-19-2025 Influenza vaccination Influenza Vaccine (Season Ended) [facility] Start: 04-01-2025 Ultrasonography of arteriovenous fistula US AV Fistula [facility] Start: 04-01-2025 US AV fistula [facility] Start: 03-16-2025 Creatinine measurement Creatinine Level [facility] Start: 03-16-2025 Potassium measurement Potassium Level [facility] Start: 03-15-2025 Echocardiography Echocardiogram [facility] Start: 01-21-2025 [facility] Start: 01-21-2025 Hospital admission [facility] Start: 01-21-2025 End: 01-21-2025 [facility] Start: 12-17-2024 Plain chest X-ray XR chest 2V* [facility] Start: 12-17-2024 XR Chest 2 Views [facility] Start: 11-24-2024 End: 11-24-2024 Patient encounter procedure 11/24/2024 11:20 AM EDT Office Visit [facility] [address] [place] [address] Brianna Gomez DO [address] [place] [address] [facility] Start: 11-02-2024 End: 11-02-2024 [facility] Start: 11-01-2024 Referral to manager winter [facility] Start: 11-01-2024 [facility] Start: 11-01-2024 Hospital admission [facility] Start: 11-01-2024 CT Abdomen and Pelvis WO contrast [facility] Start: 11-01-2024 CT of abdomen and pelvis without contrast CT abdomen pelvis wo con [facility] Start: 11-01-2024 CT of head without contrast CT head/brain wo con [facility] Start: 11-01-2024 CT Unspecified body region WO contrast [facility] Start: 11-01-2024 Plain chest X-ray XR chest 1V portable [facility] Start: 11-01-2024 XR Chest Single view [facility] Start: 11-01-2024 [facility] Start: 11-01-2024 Bacteria identified in Blood by Culture Blood Culture [facility] Start: 09-17-2024 Consultation [facility] Start: 09-17-2024 End: 09-17-2024 [facility] Start: 09-16-2024 Introduction of Other [employer] Therapeutic Substance into Mouth and Pharynx, External Approach, [employer] Introduction of Other [employer] Therapeutic Substance into Mouth and Pharynx, External Approach, [employer] 5 [facility] Start: 09-16-2024 Referral to infectious diseases physician [facility] Start: 09-16-2024 Hospital admission [facility] Start: 09-16-2024 Microbial culture of sputum [facility] Start: 09-16-2024 Referral to manager winter [facility] Start: 09-16-2024 [facility] Start: 09-15-2024 End: 09-15-2024 [facility] Start: 09-15-2024 Bacteria identified in Blood by Culture Blood Culture [facility] Start: 09-05-2024 Glaucoma screening Diabetes: Retinopathy Screening [facility] Start: 08-29-2024 [facility] Start: 08-28-2024 Bacteria identified in Blood by Culture Blood Culture [facility] Start: 08-28-2024 Performance of Urinary Filtration, Intermittent, Less than 6 Hours Per Day [facility] Start: 08-28-2024 Microbial culture of sputum [facility] Start: 08-28-2024 Hospital admission [facility] Start: 08-28-2024 Referral to manager winter [facility] Start: 08-28-2024 End: 08-28-2024 [facility] Start: 08-27-2024 Bacteria identified in Blood by Culture Blood Culture [facility] Start: 08-13-2024 End: 08-13-2024 Patient encounter procedure 08/13/2024 9:20 AM EST Office Visit [facility] [address] [place] [id number] David Berg DPM [address] [facility] [address] [place] [address] [facility] Start: 06-22-2024 Hospital admission [facility] Start: 06-22-2024 Referral to manager winter [facility] Start: 06-11-2024 End: 06-11-2024 Patient encounter procedure 06/11/2024 9:50 AM EDT Office Visit [facility] [address] [facility] [address] [place] [id number] Brianna Gomez DO [address] [facility] [address] [place] [address] [facility] Start: 06-04-2024 End: 06-04-2024 Patient encounter procedure 06/04/2024 9:20 AM EDT Office Visit [facility] [address] [place] [address] David Berg DPM [address] [facility] 5 [place] [address] Type 2 diabetes mellitus without complication, with long-term current use of insulin (CMS/HCC) (Primary Dx); Pain due to onychomycosis of toenails of both feet; Hav (hallux abducto valgus), left [facility] Comment on above: Type 2 diabetes mellitus without complic ation, with long-term current use of insulin (CMS/HCC) (Primary Dx); Pain due to onychomycosis of toenails of both feet; Hav (hallux abducto valgus), left Start: 04-19-2024 Influenza vaccination [facility] Start: 03-10-2024 Plain chest X-ray XR chest 2V* [facility] Start: 03-09-2024 Bacteria identified in Blood by Culture [facility] Start: 03-09-2024 Blood culture for bacteria, including anaerobic screen Blood Culture [facility] Start: 03-09-2024 Performance of Urinary Filtration, Intermittent, Less than 6 Hours Per Day Performance of Urinary Filtration, Intermittent, Less than 6 Hours Per Day [facility] Start: 03-09-2024 Referral to manager winter [facility] Start: 03-09-2024 End: 03-09-2024 [facility] Start: 03-09-2024 Hospital admission [facility] Start: 03-09-2024 [facility] Start: 03-09-2024 [facility] Start: 03-02-2024 End: 03-02-2024 [facility] Start: 03-01-2024 Bacteria identified in Blood by Culture [facility] Start: 03-01-2024 Blood culture for bacteria, including anaerobic screen Blood Culture [facility] Start: 03-01-2024 Performance of Urinary Filtration, Intermittent, Less than 6 Hours Per Day Performance of Urinary Filtration, Intermittent, Less than 6 Hours Per Day [facility] Start: 03-01-2024 [facility] Start: 03-01-2024 Referral to manager winter [facility] Start: 03-01-2024 Hospital admission [facility] Start: 03-01-2024 [facility] Start: 03-01-2024 Plain chest X-ray XR chest 2V* [facility] Start: 03-01-2024 XR Chest 2 Views [facility] Start: 03-01-2024 [facility] Start: 11-26-2023 End: 11-26-2023 [facility] Start: 10-31-2023 [facility] Start: 10-24-2023 End: 10-24-2023 Patient encounter procedure 10/24/2023 3:10 PM EST Office Visit [facility] [address] [facility] [address] [place] [address] David Berg DPM [address] [facility] 5 [place] [address] [facility] Start: 10-15-2023 End: 10-15-2023 Patient encounter procedure 10/15/2023 1:15 PM EST Office Visit [facility] [address] [place] [phone] Angelina Martinez MD [address] [place] [address] [facility] Start: 10-03-2023 Echocardiography Echocardiogram [facility] Start: 10-01-2023 Patient referral [facility] Work Phone: Start: 09-30-2023 End: 09-30-2024 MR Shoulder - left WO contrast MR shoulder left wo IV contrast Imaging Routine Internal derangement of left shoulder Expected: 09/30/2023 (Approximate), Expires: 09/30/2024 [facility] Work Phone: Comment on above: Expected: 09/30/2023 (Approximate), Expi res: 09/30/2024 Start: 09-30-2023 End: 09-30-2023 Patient encounter procedure 09/30/2023 1:00 PM EST Office Visit [facility] [address] [place] [address] Nelida Carrington, [employer] [address] [place] [address] [facility] Start: 09-05-2023 FUV, Provider: Brianna Gomez, Status: Pen, Time: 9:50 AM FUV, Provider: Brianna Gomez, Status: Pen, Time: 9:50 AM [facility] DO Work Phone: Start: 08-18-2023 [facility] Start: 08-18-2023 Referral to crisis nurse [facility] Start: 08-18-2023 Referral to manager winter [facility] Start: 08-18-2023 Hospital admission [facility] Start: 08-18-2023 [facility] Start: 07-02-2023 Ultrasonography of arteriovenous fistula US AV Fistula [facility] Start: 07-02-2023 US AV fistula [facility] Start: 06-17-2023 [facility] Start: 06-13-2023 Ultrasonography of arteriovenous fistula US AV Fistula [facility] Start: 06-13-2023 US AV fistula [facility] Start: 04-19-2023 COVID-19 Vaccine ( season) COVID-19 Vaccine ( season) [facility] Start: 04-12-2023 [facility] Start: 02-26-2023 FUV, Provider: Brianna Gomez, Status: Pen, Time: 9:30 AM FUV, Provider: Brianna Gomez, Status: Pen, Time: 9:30 AM [facility] DO Work Phone: Start: 02-04-2023 End: 02-04-2023 [facility] Start: 02-04-2023 SURGNON, Provider: Brianna Gomez, Status: Pen, Time: 11:00 AM SURGNONUH, Provider: Brianna Gomez, Status: Pen, Time: 11:00 AM [facility] DO Work Phone: Start: 01-09-2023 [facility] Start: 01-09-2023 Hospital admission [facility] Start: 01-09-2023 Referral to crisis nurse [facility] Start: 12-18-2022 [facility] Start: 12-18-2022 [facility] Start: 12-17-2022 FUV, Provider: Janine Gonzalez, Status: Pen, Time: 9:45 AM FUV, Provider: Janine Gonzalez, Status: Pen, Time: 9:45 AM [facility] DO Work Phone: Start: 12-11-2022 [facility] Start: 12-04-2022 [facility] Start: 11-28-2022 Ultrasonography of arteriovenous fistula US AV Fistula [facility] Start: 11-28-2022 US AV fistula [facility] Start: 11-14-2022 SURGNONUH, Provider: Brianna Gomez, Status: Pen, Time: 2:00 PM SURGNONUH, Provider: Brianna Gomez, Status: Pen, Time: 2:00 PM [facility] DO Work Phone: Start: 11-14-2022 CL *Percutaneous Coronary Interven(PCI) (Not Applicable) CL *Percutaneous Coronary Interven(PCI) (Not Applicable) [facility] Start: 10-07-2022 Blood chemistry [facility] Start: 10-07-2022 [facility] Start: 10-06-2022 Blood chemistry [facility] Start: 10-06-2022 [facility] Start: 10-05-2022 Blood chemistry [facility] Start: 10-05-2022 [facility] Start: 10-04-2022 Blood chemistry [facility] Start: 10-04-2022 [facility] Start: 10-04-2022 Creatine kinase [Enzymatic activity/volume] in Serum or Plasma [facility] Start: 10-04-2022 Troponin I.cardiac [Mass/volume] in Serum or Plasma by High sensitivity method [facility] Start: 10-03-2022 Blood chemistry [facility] Start: 10-03-2022 End: 10-03-2022 [facility] Start: 10-03-2022 Hospital admission [facility] Start: 10-03-2022 Referral to crisis nurse [facility] Start: 10-03-2022 Referral to manager winter [facility] Start: 10-03-2022 [facility] Start: 10-02-2022 Plain chest X-ray XR chest 1V portable [facility] Start: 10-02-2022 XR Chest Single view [facility] Start: 09-17-2022 [facility] Start: 09-17-2022 [facility] Start: 09-05-2022 Ultrasound (US) doppler flow mapping of vein of upper limb US venous mapping [facility] Start: 09-05-2022 US Upper extremity vein - bilateral [facility] Start: 09-01-2022 [facility] Start: 08-19-2022 DEPRESSION ASSESSMENT DEPRESSION ASSESSMENT [facility] Start: 08-18-2022 Blood chemistry [facility] Start: 08-17-2022 Blood chemistry [facility] Start: 08-17-2022 [facility] Start: 08-16-2022 Blood chemistry [facility] Start: 08-16-2022 [facility] Start: 08-15-2022 Blood chemistry [facility] Start: 08-15-2022 [facility] Start: 08-14-2022 Blood chemistry [facility] Start: 08-14-2022 [facility] Start: 08-13-2022 [facility] Start: 08-13-2022 Hospital admission [facility] Start: 08-13-2022 Referral to manager winter [facility] Start: 08-13-2022 [facility] Start: 08-12-2022 CT of head without contrast CT head/brain wo con [facility] Start: 08-12-2022 CT Unspecified body region WO contrast [facility] Start: 05-18-2022 End: 05-18-2022 [facility] Start: 05-18-2022 Bone marrow sampling [facility] Start: 04-20-2022 [facility] Work Phone: Start: 04-20-2022 Patient encounter procedure Registered Clinical [facility] [place] Start: 04-19-2022 Influenza vaccination INFLUENZA (#1) [facility] Start: 04-09-2022 Plain chest X-ray XR chest 1V portable [facility] Start: 04-09-2022 End: 04-10-2022 Emergency department patient visit Departed Emergency [facility]gency Room Start: 02-22-2022 FUV, Provider: Brianna Gomez, Status: Pen, Time: 11:10 AM [facility] 250 DO Work Phone: Start: 08-19-2021 DEPRESSION ASSESSMENT DEPRESSION ASSESSMENT [facility] Start: 2020 LIPID SCREEN LIPID SCREEN [facility] Start: 2007 DTaP/Tdap/Td Vaccines (1 - Tdap) DTaP/Tdap/Td Vaccines (1 - Tdap) [facility] Start: 2004 Hepatitis A Vaccines (1 of 2 - Risk 2-dose series) Hepatitis A Vaccines (1 of 2 - Risk 2-dose series) [facility] Start: 2004 Hepatitis B Vaccines (1 of 3 - 19+ 3-dose series) Hepatitis B Vaccines (1 of 3 - 19+ 3-dose series) [facility] Start: 2004 Pneumococcal Vaccine: Pediatrics and At-Risk Adult Patients (1 of 2 - PCV) Pneumococcal Vaccine: Pediatrics and At-Risk Adult Patients (1 of 2 - PCV) [facility] Start: 2004 Urine microalbumin profile DTAP,TDAP,TD (1 - Tdap) [facility] Start: 2004 Urine screening for protein Diabetes: Urine Protein Screening [facility] Start: 2004 Zoster Vaccines (1 of 2) Zoster Vaccines (1 of 2) [facility] Start: 2003 HEPATITIS C SCREENING HEPATITIS C SCREENING [facility] Start: 2003 Hepatitis C screening Hepatitis C Screening [facility] Start: 2003 HIV SCREENING HIV SCREENING [facility] Start: 1998 Varicella vaccination Varicella Vaccines (1 of 2 - 13+ 2-dose series) [facility] Start: 1995 Diabetic foot examination Diabetes: Foot Exam [facility] Start: 1991 PNEUMOCOCCAL (1 - PCV) PNEUMOCOCCAL (1 - PCV) [facility] Start: 1991 Pneumococcal Vaccine: Pediatrics (0 to 5 Years) and At-Risk Patients (6 to 64 Years) (1 of 2 - PCV) Pneumococcal Vaccine: Pediatrics (0 to 5 Years) and At-Risk Patients (6 to 64 Years) (1 of 2 - PCV) [facility] Start: 1990 COVID-19 Vaccine (#1) COVID-19 Vaccine (#1) [facility] Start: 1986 MMR Vaccines (1 of 1 - Standard series) MMR Vaccines (1 of 1 - Standard series) [facility] Start: 1985 COVID-19 VACCINE (#1) COVID-19 VACCINE (#1) [facility] Start: 1985 Creatinine measurement Creatinine Level [facility] Start: 1985 Hemoglobin A1c measurement Diabetes: Hemoglobin A1C [facility] Start: 1985 HEPATITIS B (1 of 3 - 3-dose series) HEPATITIS B (1 of 3 - 3-dose series) [facility] Start: 1985 HIV screening HIV Screening [facility] Start: 1985 Lipid panel Lipid Panel [facility] Start: 1985 Medicare Annual Wellness Visit Medicare Annual Wellness Visit (AWV) [facility] Start: 1985 Potassium measurement Potassium Level [facility] Anion gap measurement [facility] Basophils [#/volume] in Blood by Automated count [facility] Basophils/100 leukoc ytes in Blood by Automated count [facility] Blood chemistry [facility] Bone marrow sampling [facility] Work Phone: Calcium [Mass/volume ] in Serum or Plasma [facility] Carbon dioxide, tota l [Moles/volume] in Serum or Plasma [facility] Chloride [Moles/volu me] in Serum or Plasma [facility] Comprehensive metabo lic 1999 panel - Serum or Plasma [facility] Comprehensive metabo lic 1999 panel - Serum or Plasma [facility] Comprehensive metabo lic 1999 panel - Serum or Plasma [facility] Creatine kinase [Enzymatic activity/volume] in Serum or Plasma [facility] Creatine kinase [Enzymatic activity/volume] in Serum or Plasma [facility] Creatine kinase MB isoenzyme/total creatine kinase ratio measurement [facility] Creatine kinase MB isoenzyme/total creatine kinase ratio measurement [facility] Creatine kinase.MB [Mass/volume] in Serum or Plasma [facility] Creatine kinase.MB [Mass/volume] in Serum or Plasma [facility] Creatinine and Glome rular filtration rate.predicted panel - Serum, Plasma or Blood [facility] CT Abdomen and Pelvi s WO contrast [facility] DXA Skeletal system. axial Views for bone density [facility] Work Phone: Eosinophils [#/volum e] in Blood [facility] Eosinophils/100 leukocytes in Blood by Automated count [facility] Erythrocyte distribu tion width [Ratio] by Automated count [facility] Erythrocytes [#/volu me] in Blood [facility] Glucose [Mass/volume ] in Serum or Plasma [facility] Glucose [Mass/volume ] in Serum or Plasma [facility] Glucose [Mass/volume ] in Serum or Plasma [facility] Glucose [Mass/volume ] in Serum or Plasma [facility] Glucose [Mass/volume ] in Serum or Plasma [facility] Glucose measurement estimated from glycated hemoglobin [facility] Hematocrit [Volume Fraction] of Blood [facility] Hemoglobin [Mass/vol ume] in Blood [facility] Hepatitis A virus antibody, IgM type [facility] Hepatitis B core ant ibody measurement, IgM type [facility] Hepatitis B virus ramon rface Ag [Presence] in Serum or Plasma by Immunoassay [facility] Hepatitis C virus Ig G Ab [Presence] in Serum or Plasma by Immunoassay [facility] Hepatitis C virus RN A [log units/volume] (viral load) in Serum or Plasma by HAO with probe detection [facility] Hepatitis C virus RN A [Units/volume] (viral load) in Serum or Plasma by HAO with probe detection [facility] Leukocytes [#/volume ] corrected for nucleated erythrocytes in Blood by Automated coun [facility] Leukocytes [#/volume ] in Blood [facility] Lymphocytes [#/volum e] in Blood by Automated count [facility] Lymphocytes/100 leukocytes in Blood by Automated count [facility] MCH [Entitic mass] b y Automated count [facility] MCHC [Mass/volume] b y Automated count [facility] MCV [Entitic volume] by Automated count [facility] Measurement of renal function [facility] Monocytes [#/volume] in Blood by Automated count [facility] Monocytes/100 leukoc ytes in Blood by Automated count [facility] Neutrophils [#/volum e] in Blood by Automated count [facility] Neutrophils/100 leukocytes in Blood by Automated count [facility] Nucleated erythrocyt es [Presence] in Blood by Automated count [facility] Patient Education [facility] Work Phone: Patient referral [facility] Work Phone: Platelet mean volume [Entitic volume] in Blood by Automated count [facility] Platelets [#/volume] in Blood [facility] Potassium [Moles/vol ume] in Serum or Plasma [facility] Sodium [Moles/volume ] in Serum or Plasma [facility] Troponin I.cardiac [Mass/volume] in Serum or Plasma by High sensitivity method [facility] Troponin I.cardiac [Mass/volume] in Serum or Plasma by High sensitivity method [facility] Urea nitrogen [Mass/volume] in Serum or Plasma [facility] URINALYSIS, REFLEX MICROSCOPIC URINALYSIS, REFLEX MICROSCOPIC Lab Routine Screening for genitourinary condition Ordered: 09/05/2022 [facility] Work Phone: Comment on above: Ordered: 09/05/2022 [facility] Immunizations Immunization Date Immunization Notes Care Provider Janeen daniel 10-05-1997 measles, mumps and rubella virus vaccine David Berg DPM Work Phone: [facility] Payers Date Payer Category Payer Medicare [id number] 2024 Self-pay [id number] 2024 Dual Eligibility Medicare/Medicaid Organization ANTH DUAL ADVANTAGE Member Subscriber Plan / Payer (Effective 2024-Present) Name: Yoel Werner Relation to Subscriber: Self Name: Yoel Werner Payer ID: [id number] (NAIC) Group ID: [id number] Type: Not on file Address: [facility] [id number] [place] [id number] 2024 Medicare (Managed Care) MEL HINTON [id number] 2024 Medicare [id number] 2023 Medicare [id number] .[id number] 2023 Medicare [id number] 2.16.840.1.820648.19 2021 Medicaid [id number]. 1.13.159.2 .7.3.991873.315 2021 Unknown 1985 Unknown [id number] 2.840.1.819589.3.579.2 .593 1985 Unknown [id number] 2.840.1.484565.3.579.2 .593 1985 Unknown [id number] 2.16840.1.940925.3.579.2 .593 1985 Unknown [id number] 2.16840.1.213687.3.579.2 .356 1985 Unknown [id number] 2.16840.1.920966.3.579.2 .356 1985 Unknown [id number] 2.16840.1.247118.3.579.2 .356 1985 Unknown [id number] 2.16.840.1.352643.3.579.2 .356 1985 Unknown [id number] 2.16.840.1.405405.3.579.2 .356 1985 Unknown [id number] 2.16.840.1.408003.3.579.2 .356 1985 Unknown [id number] 2.16.840.1.091160.3.579.2 .356 1985 Unknown [id number] 2.16.840.1.467024.3.579.2 .356 1985 Unknown [id number] 2.16.840.1.762678.3.579.2 .356 1985 Unknown [id number] 2.16.840.1.383583.3.579.2 .727 1985 Unknown [id number] 2.16.840.1.937758.3.579.2 .1258 1985 Unknown [id number] 2.16.840.1.118143.3.579.2 .125 1985 Unknown [id number] 2.16.840.1.313749.3.579.2 .1258 1985 Unknown [id number] 2.16.840.1.233853.3.579.2 .9 1985 Unknown [id number] 2.16.840.1.069930.3.579.2 .1244 1985 Unknown [id number] 2.16.840.1.243687.3.579.2 .1244 1959 Blue Cross Blue Shield [id number] 2.16.840.1.837478.19 1959 Medicaid [id number] 1959 Self-pay [id number] Medicare Medicare [id number] Unknown [id number] 2.16.840.1.803336.3.579.2 .531 Unknown [id number] 2.16.840.1.875736.3.579.2 .531 Unknown [id number] 2.16.840.1.096299.3.579.2 .531 Unknown [id number] 2.16.840.1.746016.3.579.2 .531 Unknown [id number] 2.16.840.1.262357.3.579.2 .531 Unknown [id number] 2.16.840.1.446385.3.579.2 .531 Unknown [id number] 2.16.840.1.937379.3.579.2 .531 Unknown [id number] 2.16.840.1.810983.3.579.2 .531 Unknown [id number] 2.16.840.1.141467.3.579.2 .531 Unknown [id number] 2.16.840.1.877202.3.579.2 .531 Unknown [id number] 2.16.840.1.789482.3.579.2 .531 Social History Date Type Detail Facility Start: 08-15-2023 End: 06-04-2024 Current every day smoker Current every day smoker [facility] Other Comment on above: 3 cigs daily; 1-2 Packs of cigaret josé daily; medical; 1 Pack of cigarettes daily; Start: 09-09-2023 End: 06-04-2024 Sex Assigned At [facility] Start: 11-13-2021 End: 03-09-2024 Tobacco smoking status LAIS Smoker (finding) [facility] Start: 1985 Sex Assigned At Male F [facility] Start: 10-02-2021 End: 03-26-2024 Tobacco smoking status LAIS Smokes tobacco daily [facility] Start: 10-02-2021 End: 03-26-2024 Tobacco use and exposure Smokeless tobacco non-user [facility] Start: 10-02-2021 Alcohol intake Ex-drinker (finding) [facility] Start: 1985 Sex Assigned At Not on file [facility] Start: 08-13-2022 End: 09-17-2022 Tobacco smoking status NHIS Current Heavy tobacco smoker [facility] Start: 08-29-2022 Tobacco smoking status Never [facility] History of tobacco use Cigarette Smoker [facility] Start: 09-24-2023 End: 12-10-2024 Alcohol intake Defer [facility] Start: 12-03-2023 End: 11-24-2024 Alcoholic beverage intake Lifetime non-drinker (finding) [facility] Work Phone: Start: 11-23-2023 End: 11-24-2024 Exposure to SARS-CoV-2 (event) Not sure [facility] Start: 03-01-2024 End: 11-01-2024 Tobacco smoking status NHIS Never smoked tobacco (finding) [facility] Start: 08-28-2024 End: 01-21-2025 Tobacco smoking status NHIS Ex-smoker (finding) [facility] Start: 08-28-2024 End: 01-20-2025 Sex Male (finding) [facility] Start: 11-24-2024 Tobacco use and exposure User of smokeless tobacco [facility] Work Phone: Start: 11-24-2024 Tobacco Comment Vape [facility] Work Phone: Medical Equipment Procedure Code Equipment Code Equipment Origin al Text Equipment Identifier Dates Fistulogram ()[id number] FDA Start: 06-17-2023 Fistulogram ()[id number] FDA Start: 06-17-2023 Fistulogram ()[id number] FDA Start: 06-17-2023 Fistulogram ()[id number] FDA Start: 06-17-2023 Fistulogram ()[id number] FDA Start: 06-17-2023 Creation or revision of arteriovenous fistula ()[id number] FDA Start: 11-26-2023 ()[id number] FDA Start: 11-16-2021 CL STENT SHARMAINE FRONTIER [...] FRONTIER 3.5 X 12 FDA Start: 02-04-2023 [id number] Start: 08-26-2023 CL STENT SHARMAINE FRONTIER 3.0 X 38 FDA Start: 02-04-2023 CL STENT SHARMAINE FRONTIER 3.5 X 12 FDA Start: 02-04-2023 CL STENT SHARMAINE FRONTIER 3.0 X 38 FDA Start: 02-04-2023 CL STENT SHARMAIEN FRONTIER 3.5 X 12 FDA Start: 02-04-2023 [...] FRONTIER 3.5 X 12 FDA Start: 02-04-2023 FDA Start: 02-04-2023 FDA Start: 02-04-2023 CL STENT SHARMAINE FRONTIER 3.0 X 38 FDA Start: 02-04-2023 CL STENT SHARMAINE FRONTIER 3.5 X 12 FDA Start: 02-04-2023 Blood Sugar Diagnostic (Accu-Chek Guide Test Strips) strip Start: 10-14-2024 CL STENT SHARMAINE FRONTIER 3.0 X 38 FDA Start: 02-04-2023 CL STENT SHARMAINE FRONTIER 3.5 X 12 FDA Start: 02-04-2023 Blood Sugar Diagnostic (Accu-Chek Guide Test Strips) strip Start: 10-14-2024 CL STENT SHARMAINE FRONTIER 3.0 X 38 FDA Start: 02-04-2023 CL STENT SHARMAINE FRONTIER 3.5 X 12 FDA Start: 02-04-2023 Blood Sugar Diagnostic (Accu-Chek Guide Test Strips) strip Start: 10-14-2024 CL STENT SHARMAINE FRONTIER 3.0 X 38 FDA Start: 02-04-2023 CL STENT SHARMAINE FRONTIER 3.5 X 12 FDA Start: 02-04-2023 Blood Sugar Diagnostic (Accu-Chek Guide Test Strips) strip Start: 10-14-2024 CL STENT SHARMAINE FRONTIER 3.0 X 38 FDA Start: 02-04-2023 CL STENT SHARMAINE FRONTIER 3.5 X 12 FDA Start: 02-04-2023 Blood Sugar Diagnostic (Accu-Chek Guide Test Strips) strip Start: 10-14-2024 CL STENT SHARMAINE FRONTIER 3.0 X 38 FDA Start: 02-04-2023 CL STENT SHARMAINE FRONTIER 3.5 X 12 FDA Start: 02-04-2023 Blood Sugar Diagnostic (Accu-Chek Guide Test Strips) strip Start: 10-14-2024 CL STENT SHARMAINE FRONTIER 3.0 X 38 FDA Start: 02-04-2023 CL STENT SHARMAINE FRONTIER 3.5 X 12 FDA Start: 02-04-2023 Blood Sugar Diagnostic (Accu-Chek Guide Test Strips) strip Start: 10-14-2024 CL STENT SHARMAINE FRONTIER 3.0 X 38 FDA Start: 02-04-2023 CL STENT SHARMAINE FRONTIER 3.5 X 12 FDA Start: 02-04-2023 Blood Sugar Diagnostic (Accu-Chek Guide Test Strips) strip Start: 10-14-2024 CL STENT SHARMAINE FRONTIER 3.0 X 38 FDA Start: 02-04-2023 CL STENT SHARMAINE FRONTIER 3.5 X 12 FDA Start: 02-04-2023 CL STENT SHARMAINE FRONTIER 3.5 X 18 FDA Start: 01-21-2025 Femoral artery closure plug/patch, synthetic polymer [id number] FDA Start: 01-21-2025 Blood Sugar Diagnostic (Accu-Chek Guide Test Strips) strip Start: 03-18-2025 Blood Sugar Diagnostic (Accu-Chek Guide Test Strips) strip Start: 10-14-2024 End: 03-18-2025 CL STENT SHARMAINE FRONTIER 3.0 X 38 FDA Start: 02-04-2023 CL STENT SHARMAINE FRONTIER 3.5 X 12 FDA Start: 02-04-2023 CL STENT SHARMAINE FRONTIER 3.5 X 18 FDA Start: 01-21-2025 Blood Sugar Diagnostic (Accu-Chek Guide Test Strips) strip Start: 03-18-2025 Blood Sugar Diagnostic (Accu-Chek Guide Test Strips) strip Start: 10-14-2024 End: 03-18-2025 Goals Date Patient Goal Desired Activity /State Functional Status Date Assessment Result Facility 01-21-2025 Functional status Patient at [facility] Work Phone: 11-02-2024 Functional status Patient at [facility] Work Phone: 11-02-2024 Functional status Disability Sta tus Patient at Baseline [facility] Work Phone: 09-17-2024 Functional status Patient at [facility] Work Phone: 09-16-2024 Functional status Patient at [facility] Work Phone: 08-28-2024 Functional status Patient at [facility] Work Phone: 06-22-2024 Functional status Patient at [facility] Work Phone: 03-09-2024 Functional status Patient Not at [facility] Work Phone: 03-02-2024 Functional status Patient at [facility] Work Phone: 08-18-2023 Functional status Patient at [facility] Work Phone: 02-05-2023 Functional status Patient at [facility] Work Phone: 01-09-2023 Functional status Patient at [facility] Work Phone: 10-03-2022 Functional status Patient at [facility] Work Phone: 08-29-2022 Functional Status N/A [facility] 08-13-2022 Functional status Patient at [facility] Work Phone: Mental Status Date Assessment Result Facility 01-21-2025 Cognitive function Cognitive Sta tus Patient at Baseline [facility] Work Phone: 11-02-2024 Cognitive function Cognitive Sta tus Patient at Baseline [facility] Work Phone: 09-17-2024 Cognitive function Patient at Baseline [facility] Work Phone: 09-16-2024 Cognitive function Cognitive Sta tus Patient at Baseline [facility] Work Phone: 08-28-2024 Cognitive function Patient at Baseline [facility] Work Phone: 06-22-2024 Cognitive function Patient at Baseline [facility] Work Phone: 03-09-2024 Cognitive function Cognitive Sta tus Patient Not at Baseline [facility] Work Phone: 03-02-2024 Cognitive function Cognitive Sta tus Patient at Baseline [facility] Work Phone: 08-18-2023 Cognitive function Cognitive Sta tus Patient at Baseline [facility] Work Phone: 02-05-2023 Cognitive function Cognitive Sta tus Patient at Baseline [facility] Work Phone: 01-09-2023 Cognitive function Cognitive Sta tus Patient at Baseline [facility] Work Phone: 10-03-2022 Cognitive function Cognitive Sta tus Patient at Baseline [facility] Work Phone: 08-13-2022 Cognitive function Cognitive Sta tus Patient at Baseline [facility] Work Phone: Clinical Notes 10-02-2021 to 04-01-2025 Note Date & Type Note Facility 04-01-2025 Radiology Diagnostic study note [facility] [address] [place] [address] Ultrasound Report Signed Patient: Yoel Werner MR#: [id number] : 1985 Acct:[id number] Age/Sex: 40 / M ADM Date: 5 Loc: [facility] Room: Type: [facility] Attending Dr: Romain Mendoza MD Ordering Provider: Romain Mendoza MD Date of Service: 04/01/25 US/US AV Fistula: N18.6 - End stage renal disease Copies to: Romain Mendoza MD~ Left upper extremity fistula duplex evaluation INDICATIONS: Pain at the anastomotic site. FINDINGS: Left upper extremity: The left upper extremity AV fistula is patent. Flow velocities are ideal. No narrowing or thrombus is identified. The left axillary and subclavian veins are patent. US/US AV Fistula IMPRESSION: Normal study. Impression dictated by: Romain Mendoza MD,FACS,FSVS 04/01/2025 12:35 PM Dictation Location: [place] [address] Tech: Leslie Marinelli Transcribed By: BRENNAN 04/01/25 1235 Dictated By: Romain Mendoza MD 04/01/25 1234 Signed By: 04/01/25 1235 [facility] Work Phone: 01-21-2025 Procedure note [facility] Medical C enter 01-21-2025 Procedure note [facility] enter 01-21-2025 Procedure note [facility] enter 01-12-2025 Evaluation note Diagnosis Onset Date Resolution ASHD (arteriosclerotic heart disease) acute January 12, 2025 2:40pm Chronic bronchitis, mucopurulent acute January 12, 2025 2:40pm Chronic heart failure with preserved ejection fraction (HFpEF) acute January 12, 2025 2:40pm Dependence on renal dialysis acute January 12, 2025 2:40pm ESRD (end stage renal disease) acute January 12, 2025 2:40pm Nicotine addiction acute January 122024 2:40pm Primary hypertension acute January 12, 2025 2:40pm Right shoulder pain acute December 182024 2:40pm Type 1 diabetes mellitus with hyperglycemia acute January 12 2:40pm [facility] Work Phone: 1(851) 579-877705-27-2025 Evaluation note* Diagnosis Onset Date Resolution Status Admit Date ASHD (arteriosclerotic heart disease) acute January 12, 2025 2 :40pm Chronic bronchitis, mucopurulent acu te January 12, 2025 2:40pm Chronic heart failure with preserved ejection fraction (HFpEF) acute January 12, 2025 2 :40pm Dependence on renal dialysis acute January 12, 2025 2:40pm ESRD (end stage renal disease) acute January 12, 2025 2:40pm Nicotine addiction acute January 122024 2:40pm Primary hypertension acute January 12, 2025 2:40pm Right shoulder pain acute December 182024 2:40pm Type 1 diabetes mellitus wit h hyperglycemia acute January 12, 2025 2 :40pm Pain from arteriovenous fistula acut e April 01, 2025 10:44am [facility] Work Phone: 1(704) 558-319205-06-2025 NotePatient was recently made inactive due to his cardiac issues and vaping. Patient was instructed to continue working with cardiology and attend follow up appointments. Once patient's cardiac health had been optimized and he could provide proof of negative nicotine screenings patient could call and we would re-evaluate him for transplant. Patient was scheduled for a RHC/coronary angiography today. He did not have his preprocedural lab done. Labs where drawn when patient arrived and there was some delay and patient decided to leave and not have the procedure done. He will follow with his primary crisis nurse Dr. Gomez to undergo the procedure and what ever he needs for management of his mitral regurgitation. Whenever all is done Dr. 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 Use of blood products discussed with patient who consented to blood products. [facility] History of Present illness Narrative* David Berg, SHAMAR - 12/10/2024 10:30 AM EDT Patient: Yoel Werner : 1985 PCP: Eusebio Olivares MD SUBJECTIVE This is a 39 y.o. male that presents today with a CC of elongated, thick nails. Pt states nails have been elongated and thick for many years and cause pain with ambulation in shoegear. Pt has tried previous treatment with minimal relief. Pt presents today for nail care and treatment. Patient is DM2 Patient has longstanding history and history of WV x2 with cardiac stents as well as multiple myeloma history. Patient also on dialysis with end-stage renal disease Patient has a left HAV deformity Allergies: No Known Allergies Past Medical History: Past Medical History: Diagnosis Date Cancer (CMS/HCC) CHF (congestive heart failure) (CMS/HCC) Diabetes ([facility]/HCC) End stage renal disease ([facility]/HCC) Heart attack ([facility]/HCC) Hypertension ([facility]/HCC) MGUS (monoclonal gammopathy of unknown significance) Renal failure Medications: Current Outpatient Medications: Accu-Chek Guide test strip, USE TO TEST FOUR TIMES A DAY DIRECTED, Disp: , Rfl: Accu-Chek Softclix Lancets lancets, USE TO TEST BLOOD SUGAR TWICE DAILY, Disp: , Rfl: amLODIPine (Norvasc) 2.5 MG tablet, Take 2.5 mg by mouth in the morning., Disp: , Rfl: atorvastatin (Lipitor) 80 MG tablet, Take 80 mg by mouth at bedtime., Disp: , Rfl: Blood Glucose Monitoring Suppl (Accu-Chek Guide Me) w/Device kit, USE DIRECTED, Disp: , Rfl: calcium acetate (Phoslo) 667 MG capsule, TAKE 2 CAPSULES BY MOUTH 3 TIMES DAILY WITH EACH MEAL, Disp: , Rfl: carvedilol (Coreg) 25 MG tablet, Take 25 mg by mouth in the morning and 25 mg before bedtime., Disp: , Rfl: clopidogrel (Plavix) 75 MG tablet, Take 75 mg by mouth in the morning., Disp: , Rfl: Continuous Blood Gluc Sensor (Dexcom G6 Sensor) misc, CHANGE SENSOR EVERY 10 DAYS*E10.65*, Disp: , Rfl: Continuous Blood Gluc Transmit (Dexcom G6 transmitter) misc, CHANGE EVERY 90 DAYS DX E10.65, Disp: , Rfl: CVS Aspirin Adult Low Dose 81 MG chewable tablet, Chew 81 mg in the morning., Disp: , Rfl: diclofenac sodium (Voltaren) 1 % gel, Apply 2 g topically in the morning and 2 g in the evening and2 g before bedtime., Disp: 50 g, Rfl: 2 ergocalciferol (Vitamin D2) 1.25 MG (33718 UT) capsule, Take 1 capsule by mouth 1 (one) time per week., Disp: , Rfl: escitalopram (Lexapro) 10 MG tablet, Take 10 mg by mouth in the morning., Disp: , Rfl: famotidine (Pepcid) 20 MG tablet, Take 20 mg by mouth in the morning and 20 mg before bedtime., Disp: , Rfl: furosemide (Lasix) 40 MG tablet, Take 40 mg by mouth in the morning., Disp: , Rfl: GaviLyte-G 236 g solution, TAKE 240 ML EVERY 10 MINUTES UNTIL FECAL EFFLUENT IS CLEAR, Disp: , Rfl: hydrALAZINE (Apresoline) 50 MG tablet, Take 50 mg by mouth in the morning and 50 mg at noon and 50 mg in the evening., Disp: , Rfl: hyoscyamine (Anaspaz,Levsin) 0.125 MG tablet, TAKE 1 TABLET BY MOUTH EVERY 6 HOURS NEEDED FOR ABDOMINAL PAIN, Disp: , Rfl: insulin lispro (HumaLOG KWIKPEN) 100 UNIT/ML injection, Inject under the skin, Disp: , Rfl: isosorbide mononitrate ER (Imdur) 60 MG 24 hr tablet, Take 60 mg by mouth in the morning and 60 mg before bedtime., Disp: , Rfl: loratadine (Claritin) 10 MG tablet, Take 10 mg by mouth every other day., Disp: , Rfl: nitroglycerin (Nitrostat) 0.4 MG SL tablet, Place 0.4 mg under the tongue, Disp: , Rfl: ofloxacin (Ocuflox) 0.3 % ophthalmic solution, INSTILL 1 DROP INTO RIGHT EYE 4 TIMES A DAY DIRECTED, Disp: , Rfl: omeprazole (PriLOSEC) [address] capsule, TAKE 1 CAP BY MOUTH EVERY DAY IN THE MORNING ON EMPTY STOMACH FOLLOWED BY BREAKFAST 30 MINS AFTER, Disp: , Rfl: ondansetron ODT (Zofran-ODT) 4 MG disintegrating tablet, DISSOLVE 1 TABLET ON THE TONGUE EVERY 6 HOURS NEEDED FOR NAUSEA/ VOMITING, Disp: , Rfl: Uqwzajyopqq-Bzrqrwwy-Ectzjhsbe 1-0.5-0.075 % solution, Administer 1 drop into affected eye(s) in the morning and 1 drop at noon and 1 drop in the evening and 1 drop before bedtime., Disp: 10 mL, Rfl:1 sertraline (Zoloft) 100 MG tablet, , Disp: , Rfl: Social History: Social History Socioeconomic History Marital status: Unmarried Spouse name: Not on file Number of children: Not on file Years of education: Not on file Highest education level: Not on file Occupational History Not on file Tobacco Use Smoking status: Every Day Current packs/day: 1.00 Average packs/day: 1 pack/day for 20.0 years (20.0 ttl pk-yrs) Types: Cigarettes Smokeless tobacco: Never Vaping Use Vaping status: Unknown Substance and Sexual Activity Alcohol use: Defer Drug use: Yes Types: Marijuana Sexual activity: Defer Other Topics Concern Not on file Social History Narrative Not on file Social Drivers of Health Financial Resource Strain: Low Risk (03/14/2024) Received from [facility] Overall Financial Resource Strain (CARDIA) Difficulty of Paying Living Expenses: Not hard at all Food Insecurity: No Food Insecurity (03/14/2024) Received from [facility] Hunger Vital Sign Worried About Running Out of Food in the Last Year: Never true Ran Out of Food in the Last Year: Never true Transportation Needs: No Transportation Needs (03/14/2024) Received from [facility] PRAPARE - Transportation Lack of Transportation (Medical): No Lack of Transportation (Non-Medical): No Physical Activity: Not on file Stress: Not on file Social Connections: Not on file Intimate Partner Violence: Unknown (11/26/2023) Received from [facility] Safety & Environment Fear of Current or Ex-Partner: Not on file Emotionally Abused: Not on file Physically Abused: Not on file Sexually Abused: Not on file Physically or Sexually Abused: Not on file Housing Stability: Not on file ROS: General: denies fever, chills, fatigue, malaise Cardiovascular: denies CP, palpitations, irregular rhythms. Positive history of cardiac stents in [place] and on blood thinners OBJECTIVE LE EXAM: DERM: Elongated thick yellow crumbly nails digits 1 through 10. Diminished hair growth with thin shiny atrophic skin bilaterally. Rubor to dorsal medial eminence of the left 1st metatarsal VASC: Positive DP and positive PT pedal pulses NEURO: 5.07 Wallace Alecia monofilament test positive to digits and forefoot bilaterally 125Hz tuning fork positive to 1st MPJ bilaterally ORTHO: Positive pain on palpation to toenails of the left 1,2,3,4,5 toes and right 1,2,3,4,5 toes HAV deformity left foot that is reducible ASSESSMENT 1. Type 2 diabetes mellitus without complication, with long-term current use of insulin 2. Pain due to onychomycosis of toenails of both feet 3. Hav (hallux abducto valgus), left PLAN Discussed proper foot care with patient today. Debride nails in length and thickness digits 1 through 10 Patient educated today on proper diabetic foot care including monitoring feet daily for any signs of infection openings in the skin or irregularities to both feet. Patient had a diabetic neurologicalexam today to both their feet and discussed proper shoe gear. David Berg DPM documented in this encounterCooper County Memorial [id number] History of Present illness Narrative* Brianna Gomez, DO - 11/24/2024 11:20 AM EDT Chief Complaint Patient presents with Follow-up 6m follow up for Arteriosclerotic heart disease Subjective Yoel Werner is a 39 y.o. male 39-year-old gentleman returns for routine cardiovascular follow-up in 6 months for ongoing cardiovascular surveillance and maintenance. He is doing well from cardiovascular standpoint. He had 1 hospitalization for missed dialysis and hyperkalemia treated effectively with inpatient dialysis and discharge details of which were reviewed He is undergoing renal transplantation workup which is on hold presently, was referred to cardiology at [facility] for valvular evaluation and underwent transesophageal echo; I suspect for mitral regurgitation which was previously considered mild to moderate. Most recent echo from [facility] this past summer during his brief hospitalization and even heart catheterization at that time revealed moderate mitral regurgitation with normal left ventricular function at that time heart catheterization revealed widely patent coronary stents x 3 vessels. We have no results from [facility] or clinical notes at the moment; no one's been in contact with our office or myself. Supposedly per the patient it is being suggested he undergo open surgical mitral valve repair; there has been a discussion about MitraClip apparently. He has exertional dyspnea that is episodic in nature no edema no heart failure, no angina no recurrent cardiovascular events and is being maintained on appropriate GDMT and DAPT. He has a history of large anterior WV with severe three-vessel disease and eventually underwent staged three-vessel interventions involving the mid LAD, mid circumflex and proximal RCA with drug-eluting stents between October 2021 and January 2023. He has ongoing tobacco abuse and we have counseled him for 3 to 5 minutes today on importance of tobacco cessation. He has end-stage renal disease currently on dialytic therapy, and undergoing transplant evaluation but again as mentioned currently on hold due to valve leakage issues per the patient. Recommendations: Will obtain [facility] data and imaging and notes, [facility], follow- up otherwise on same therapies and 6 months. Clinically there is no need for repeat heart catheterization as he just had one in the at [facility], however if structural heart team requires 1 we could proceed potentially. Review of Systems Cardiovascular: Positive for dyspnea on exertion. All other systems reviewed and are negative. Vitals: 11/24/24 1146 BP: 124/80 BP Location: Right arm Patient Position: Sitting Pulse: 68 Weight: 77.1 kg (170 lb) Height: 1.829 m (6') Objective Physical [...] Thought content normal. Judgment: Judgment normal. Allergies Brilinta [ticagrelor] Current Medications Current Outpatient Medications: amLODIPine (Norvasc) 5 mg tablet, Take 1 tablet (5 mg) by mouth once daily., Disp: , Rfl: aspirin 81 mg chewable tablet, Chew 1 tablet (81 mg) once daily., Disp: 90 tablet, Rfl: 3 atorvastatin (Lipitor) 80 mg tablet, TAKE 1 TABLET BY MOUTH EVERY NIGHT, Disp: 90 tablet, Rfl: 3 calcium acetate (Phoslo) 667 mg capsule, Take 2 capsules (1,334 mg) by mouth 3 times a day., Disp: , Rfl: carvedilol (Coreg) 25 mg tablet, Take 1 tablet (25 mg) by mouth 2 times a day., Disp: , Rfl: clopidogrel (Plavix) 75 mg tablet, Take 1 tablet (75 mg) by mouth once daily., Disp: 90 tablet, Rfl: 3 epoetin alexus (EPOGEN INJ), Inject 8,000 Units under the skin 3 times a week., Disp: , Rfl: escitalopram (Lexapro) 10 mg tablet, Take 1 tablet (10 mg) by mouth once daily., Disp: , Rfl: famotidine (Pepcid) 20 mg tablet, Take 1 tablet (20 mg) by mouth once daily at bedtime., Disp: , Rfl: furosemide (Lasix) 40 mg tablet, TAKE 1 TABLET BY MOUTH EVERY DAY (Patient taking differently: Take2 tablets (80 mg) by mouth once daily.), Disp: 90 tablet, Rfl: 3 heparin sodium,porcine/PF (heparin, porcine, PF,) 1,000 unit/mL solution, Infuse 1 mL (1,000 Units)into a venous catheter 3 times a week., Disp: , Rfl: HumaLOG KwikPen Insulin 100 unit/mL injection, Inject under the skin., Disp: , Rfl: hydrALAZINE (Apresoline) 100 mg tablet, Take 1 tablet (100 mg) by mouth early in the morning.., Disp: 90 tablet, Rfl: 3 hydrOXYzine HCL (Atarax) 25 mg tablet, Take 1 tablet (25 mg) by mouth once daily at bedtime., Disp:, Rfl: isosorbide mononitrate ER (Imdur) 60 mg [...] by mouth once daily., Disp: , Rfl: sertraline (Zoloft) 100 mg tablet, Take 1 tablet (100 mg) by mouth early in the morning.., Disp: , Rfl: Assessment/Plan 1. ASHD (arteriosclerotic heart disease) Follow Up In Cardiology 2. History of WV (myocardial infarction) 3. Status post insertion of drug eluting coronary artery stent 4. Aortic valve disorder 5. ESRD (end stage renal disease) on dialysis (Multi) 6. Vapes nicotine containing substance Scribe Attestation By signing my name below, Tamara Ponce LPN, Scribe attest that this documentation has been prepared under the direction and in the presence of Nicole Gomez DO. Provider Attestation - Scribe documentation All medical record entries made by the Scribe were at my direction and personally dictated by me. Ihave reviewed the chart and agree that the record accurately reflects my personal performance of the history, physical exam, discussion and plan. documented in this encounterAultman Hospital Work Phone: [phone] Instructions* Patient Instructions* Mamta Kaplan LPN - 11/24/2024 11:20 AM EDT Please bring all medicines, vitamins, and herbal supplements with you when you come to the office. Prescriptions will not be filled unless you are compliant with your follow up appointments or have a follow up appointment scheduled as per instruction of your physician. Refills should be requested at the time of your visit. documented in this encounterAultman Hospital Work Phone: [phone] 584-607004-03-2025 NoteUT Cardiology - [facility] Corie Werner is a 39 y.o. year old male patient being seen for followup of mitral regurgitation. Patient Active Problem List Diagnosis Acute hypoxic respiratory failure (CMS/HCC) Acute metabolic encephalopathy Anasarca Anemia in chronic kidney disease Coronary artery disease involving [place] coronary artery of [place] heart without angina pectoris AV fistula stenosis BMI 21.0-21.9, adult Chest pain CHF (congestive heart failure) (CMS/HCC) Chronic bronchitis, mucopurulent (CMS/HCC) Chronic venous insufficiency Cigarette nicotine dependence without complication Current every day smoker Diabetes mellitus (CMS/HCC) Encephalopathy Erectile dysfunction due to arterial insufficiency End stage renal disease (CMS/HCC) Hypertension, essential EBENEZER (generalized anxiety disorder) HCAP (healthcare-associated pneumonia) History of [place]V (myocardial infarction) Hyperkalemia Hyperlipidemia Hypertensive emergency Hypoxemia Ischemic cardiomyopathy MGUS (monoclonal gammopathy of unknown significance) Mild episode of recurrent major depressive disorder Monoclonal (M) protein disease, multiple 'M' protein Nicotine addiction NSTEMI (non-ST elevated myocardial infarction) (CMS/HCC) Peyronie's disease Secondary hyperparathyroidism Status post insertion of drug eluting coronary artery stent Hypoglycemia unawareness associated with type 2 diabetes mellitus (CMS/HCC) GERD (gastroesophageal reflux disease) Diabetic retinopathy (CMS/HCC) COVID-19 Pre-transplant evaluation for kidney and pancreas transplant PAD (peripheral artery disease) Family History Problem Relation Name Age of Onset Pancreatic cancer Mother Diabetes Mother Liver disease Mother Hypertension Father Irritable bowel syndrome Father Stroke Father Coronary artery disease Brother 55 Lung cancer Paternal Grandmother Coronary artery disease Paternal Grandfather Social History Tobacco Use Smoking status: Former Current packs/day: 0.00 Average packs/day: 1 pack/day for 20.0 years (20.0 ttl pk-yrs) Types: Cigarettes Start date: 2003 Quit date: 2023 Years since quittin.2 Passive exposure: Past Smokeless tobacco: Never Vaping Use Vaping status: Never Used Substance Use Topics Alcohol use: Not Currently Drug use: Not Currently Types: Marijuana Comment: medical HPI Yoel Werner was seen previously as a new patient for cardiac evaluation for possible renal and pancreas transplant, referred by Dr. Charles. He is not on the renal transplant list lately, as he is actively smoking. He is being seen today for severe mitral regurgitation seen on MURIEL. He is a 39 year old male referred for kidney transplant with ESRD due to DM on insulin (age 17), who began dialysis 02/2023 and currently dialysis 3 days a week (M/W/) via Left upper arm AV fistula. Past medical history is significant for HTN, chronic bronchitis and ARF, anemia, acute metabolic encephalopathy, anxiety and depression, HLD, ischemic cardiomyopathy, MGUS, NSTEMI with severe three-vessel disease s/p stenting to the LAD and RCA between October of 2021 and January of 2023 (2 in left and three in right) after COVID. He does not have any history of DVT/PE/clotting events. He is on any anticoagulation 81mg ASA and Plavix. Visit on 11/19/2024: Patient underwent a MURIEL on 11/03/2024 that showed severe mitral regurgitation. Patient was seen and examined today. Patient reports worsening shortness of breath, worse with exertion, associated with intermittent chest pain, and dizziness. No leg swelling, or pre-syncope or syncope events. Review of Systems Constitutional: Positive for malaise/fatigue. Cardiovascular: Positive for near-syncope and orthopnea. Hematologic/Lymphatic: Bruises/bleeds easily. Musculoskeletal: Positive for back pain, joint pain, myalgias and neck pain. Gastrointestinal: Positive for constipation. Neurological: Positive for dizziness, headaches and light-headedness. Psychiatric/Behavioral: The patient is nervous/anxious. Objective Visit Vitals BP 135/70 (BP Location: Right arm, Patient Position: Standing) Pulse 69 Wt 77.5 kg (170 lb 12.8 oz) BMI 22.53 kg/m??? Smoking Status Former BSA 2 m??? Physical Exam Constitutional: Appearance: He is well-developed. He is not ill-appearing. HENT: Head: Normocephalic and atraumatic. Nose: Nose normal. Eyes: General: No scleral icterus. Pupils: Pupils are equal, round, and reactive to light. Neck: Thyroid: No thyromegaly. Vascular: No JVD. Cardiovascular: Rate and Rhythm: Normal rate and regular rhythm. Pulses: Radial pulses are 2+ on the right side and 2+ on the left side. Heart sounds: Murmur heard. Systolic (apex) murmur is present with a grade of 2/6. No friction rub. No gallop. Arteriovenous access: Left arteriovenous access is present. Pulmonary: Effort: Pulm (more content not included)...[facility] 11-02-2024 Consult note Author Bryce Coy [facility] Note Date/Time November 02, 2024 12: 28pm [facility] [address] [place] [address] Nephrology Consult Note Signed Patient: Yoel Werner MR#: [id number] : 1985 Acct:[id number] Age/Sex: 39 / M Adm Date: 5 Loc: 3T Room: [address] [place] [address] Type: ADM INOo Attending Dr: Law Cano MD Copies to: DO Bryce Leblanc MD Marwan Wassouf, MD~ Providers Consult Date: 11/02/24 Requesting Provider: Law Cano MD Primary Care Provider: Eusebio Olivares DO [facility] Reason for Consult: Management of ESRD and dialysis during hospital stay History of Present Illness: Mr. Werner is a 39-year-old white male with history of ESRD related to DM2 ondialysis on MWF schedule at [place] dialysis unit. Other medical problems include CAD s/p WV s/p stents, HFpEF and recurrent episodes of hypoglycemia. Patient currently has functioning left arm AV fistula. He is undergoing evaluation for pancreas and kidney transplant at [facility]. Patient presented to theER on 11/01 with nausea, vomiting and generalized weakness. He was evaluated at the ER on 10/30 for hypoglycemia not able to hold dialysis. Patient was discharged after improvement of his glucose however he was not able to present to the dialysis unit today as well because of generalized weakness. On arrival,blood pressure was elevated 175/86. Potassium was elevated 6.4 mEq/L. Patient was given D50 and calcium gluconate. CT scan of the abdomen was unremarkable except of soft tissue edema. He was admitted for further evaluation and nephrology was consulted for management of ESRD and dialysis during hospital stay. Patient is being seen and examined on hemodialysis. Blood pressure did improve down to 157/76 with ultrafiltration. He is at least 4 to 4.5 kg above estimateddry weight. He has no fever or chills. Pulse ox 99% on room air. He stated that nausea andvomiting is improving. All labs reviewed. Hemoglobin 10.5, WBCs count 5.9. Potassium did improve however still elevated 6 mmol/L. He has mild acidosis with CO2 18.8 mmol/L. BUN 100 and creatinine 10.7 since he missed 1 hemodialysis treatment. Patient was tested negative for COVID-19 Review of Systems Review of Systems All other systems reviewed & are negative unless noted below or in HPI [facility] Medical History Contusion of right lower extremity Chronic heart failure with preserved ejection fraction (HFpEF) Type 1 diabetes mellitus with hyperglycemia Mitral regurgitation Wellness examination Hypertensive CKD, ESRD on dialysis Secondary hyperparathyroidism Dependence on renal dialysis Sat-Sat-Sat EBENEZER (generalized anxiety disorder) Mixed hyperlipidemia Monoclonal (M) protein disease, multiple 'M' protein Insomnia Cataract left eye-removed ASHD (arteriosclerotic heart disease) Echo: LVEF 60%, LVH, normal RV function but enlarged, RVSP elevated, severe MR - 08/2024, LHC x 5, PCI/stent prox LAD x 3 - October 2022 - residual disease in LCx and RCA not able to treat surgically, PCI/stent RCA x 2 - January 2023, No intervention - 02/2024 Primary hypertension Peyronie's disease Erectile dysfunction due to arterial insufficiency Chronic venous insufficiency Anemia in chronic kidney disease CAD (coronary artery disease) Diabetes mellitus Depression AV fistula left arm Asthmatic bronchitis , chronic PTSD (post-traumatic stress disorder) MGUS (monoclonal gammopathy of unknown significance) History of blood transfusion 2020 Diabetic retinopathy History of myocardial infarction 2021 Surgical History H/O heart artery stent (~02/2024) x5, PCI/stent prox LAD x 3 - October 2022 - residual disease in LCx and RCA not able to treat surgically, PCI/stent RCA x 2 - January 2023, No intervention - 02/2024 History of bone marrow biopsy H/O eye surgery right and left repair retina Hx of knee surgery scope at age 17 Hx of vasectomy 7yrs ago Family History Mother Liver disease Diabetes Pancreatic cancer Father Diverticulitis Hypertension IBS (irritable bowel syndrome) Stroke Heart disease History of stroke Family history of mental disorder Social History Smoking Status: Never smoker Tobacco Type: cigarettes Substance Use Type: None Substance Abuse Comment: Has not used in a few months ; Medical card that in Sep 2023 Social History Comments: lives with dad Meds Medications & Allergies Allergies ticagrelor (From Brilinta) Allergy (Verified 11/01/24 20:26) shortness of breath Home Medications nitroglycerin 0.4 mg sublingual tablet 0.4 mg sublingual Q5MIN.X3 PRN Chest Pain30 days #25 tabs 11/17/21 [Rx Confirmed 11/01/24] aspirin 81 mg chewable tablet (Children's Aspirin) 81 mg PO QAM 09/10/22 [History Confirmed 11/01/24] isosorbide mononitrate 60 mg tablet,extended release 24 hr 60 mg PO BID 11/12/22[History Confirmed 11/01/24] calcium acetate 667 mg tablet 1,334 mg PO TID 11/13/23 [History Confirmed 11/01/24] 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 meter,continuous (FreeStyle Ramy 3 [place]) #1 ea 03/19/24 [Rx Confirmed 11/01/24] omeprazole 40 mg capsule,delayed release See Rx Instructions .Route .COMPLEX #90caps 04/21/24 [Rx Confirmed 11/01/24] 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 sensor (FreeStyle Ramy 3 Plus Sensor device) #1 ea 05/17/24 [Rx Confirmed 11/01/24] famotidine 20 mg tablet 40 mg PO QPM 06/22/24 [History Confirmed 11/01/24] carvedilol 25 mg tablet See Rx Instructions .Route .COMPLEX #180 tabs 07/21/24 [Rx Confirmed 11/01/24] sertraline 100 mg tablet See Rx Instructions .Route .COMPLEX #90 tabs 07/21/24 [Rx Confirmed 11/01/24] hydralazine 100 mg tablet 100 mg PO BID 30 days #60 tabs 08/07/24 [Rx Confirmed 11/01/24] clopidogrel 75 mg tablet (Plavix) 75 mg PO DAILY 08/28/24 [History Confirmed 11/01/24] furosemide 80 mg tablet (Lasix) 80 mg PO BID@0800,1600 30 days #60 tabs 08/29/24[Rx Confirmed 11/01/24] acetaminophen 500 mg tablet 1,000 mg (2 x 500 mg) PO TID PRN pain 15 days #90 tabs 09/02/24 [Rx Confirmed 11/01/24] atorvastatin 80 mg tablet 80 mg PO QAM 09/16/24 [History Confirmed 11/01/24] blood sugar diagnostic (Accu-Chek Guide test strips) #100 ea 10/14/24 [Rx Confirmed 11/01/24] 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 meter (Accu-Chek Guide Glucose Meter) #1 ea 10/14/24 [Rx Confirmed 11/01/24] insulin lispro 100 unit/mL subcutaneous pen (Humalog KwikPen (U-100) Insulin) See Protocol subcut USEASDIRECTD 10/14/24 [History Confirmed 11/01/24] lisinopril 20 mg tablet See Rx Instructions .Route .COMPLEX #30 tabs 10/18/24 [Rx Confirmed 11/01/24] hydroxyzine HCl 25 mg tablet 25 mg PO QPM 10/30/24 [History Confirmed 11/01/24] insulin glargine 100 unit/mL (3 mL) subcutaneous pen (Lantus Solostar U-100 Insulin) 20 unit subcut QHS 10/30/24 [History Confirmed 11/01/24] amlodipine 5 mg tablet 5 mg PO DAILY 11/01/24 [History Confirmed 11/01/24] furosemide 40 mg tablet 80 mg PO DAILY 11/01/24 [History Confirmed 11/01/24] Active Medications: Active Medications Acetaminophen (Acetaminophen 325 Mg Tablet) 650 mg PO Q6HR PRN PRN Reason: Pain Scale 1 - 3 or fever Stop: 11/01/25 23:31 Amlodipine Besylate (Amlodipine 5 Mg Tablet) 5 mg PO DAILY [facility] Stop: 11/02/25 08:59 Last Admin: 11/02/24 08:52 Dose: 5 mg Aspirin (Aspirin 81 Mg Tab.Chew) 81 mg PO QAM [facility] Stop: 11/02/25 08:59 Last Admin: 11/02/24 08:52 Dose: 81 mg Atorvastatin Calcium (Atorvastatin 80 Mg Tablet) 80 mg PO QAM [facility] Stop: 11/02/25 08:59 Last Admin: 11/02/24 08:52 Dose: 80 mg Calcium Acetate (Calcium Acetate 667 Mg Capsule) 1,334 mg PO TID [facility] Stop: 11/02/25 08:59 Last Admin: 11/02/24 08:52 Dose: 1,334 mg Carvedilol (Carvedilol 25 Mg Tablet) 25 mg PO BID.WITH.MEALS [facility] Stop: 11/02/25 07:59 Last Admin: 11/02/24 08:53 Dose: 25 mg Clopidogrel Bisulfate (Clopidogrel Bisulfate 75 Mg Tablet) 75 mg PO DAILY [facility] Stop: 11/02/25 08:59 Last Admin: 11/02/24 08:52 Dose: 75 mg Dextrose (Dextrose 50% In Water 25 Gm/50 Ml Syringe) 0 gm IV-PUSH PRN PRN PRN Reason: Hypoglycemia Stop: 11/01/25 23:45 Epoetin Alexus (Epoetin Alexus (Esrd Use) 20,000 Unit/Ml Vial) 14,000 unit IV-PUSH MoWeFr@0900 [facility]; Protocol Stop: 11/02/25 08:59 Last Admin: 11/02/24 09:20 Dose: 14,000 unit Famotidine (Famotidine 20 Mg Tablet) 20 mg PO Q48H [facility] Stop: 11/03/25 20:59 Ferric Sodium Gluconate Complex (Sodium Ferric Gluconat/Sucrose 62.5 Mg/5 Ml Vial) 125 mg IV-PUSH We@0815 [facility] Stop: 11/04/25 08:14 Furosemide (Furosemide 80 Mg Tablet) 80 mg PO DAILY [facility] Stop: 11/02/25 08:59 Last Admin: 11/02/24 08:52 Dose: 80 mg Glucose (Dextrose 40% Gel 15 Gm Tube) 0 gm PO PRN PRN PRN Reason: Hypoglycemia Stop: 11/01/25 23:45 Heparin Sodium (Porcine) (Heparin 10,000 Unit/10 Ml Vial) 2,000 unit IV PRN PRN PRN Reason: Dialysis Stop: 11/02/25 08:13 Last Admin: 11/02/24 09:19 Dose: 2,000 unit Hydralazine HCl (Hydralazine 50 Mg Tablet) 100 mg PO BID [facility] Stop: 11/02/25 08:59 Last Admin: 11/02/24 08:52 Dose: 100 mg Hydroxyzine Pamoate (Hydroxyzine Pamoate 25 Mg Capsule) 25 mg PO QPM [facility] Stop: 11/02/25 20:59 Sodium Chloride (0.9% Sodium Chloride 1,000 Ml) 1,000 mls @ 0 mls/hr MISCELLANE.Q0M PRN PRN Reason: Dialysis Stop: 11/02/25 08:13 Last Infusion: 11/02/24 09:21 Dose: Infused Insulin Aspart (Insulin Aspart 300 Units/3 Ml) 0 units SUBCUT TID.WM.HS [facility]; Protocol Stop: 11/02/25 07:59 Last Admin: 11/02/24 10:29 Dose: Not Given Insulin Glargine (Insulin Glargine 300 Units/3 Ml Insuln.Pen) 20 units SUBCUT QHS [facility] Stop: 11/02/25 21:59 Isosorbide Mononitrate (Isosorbide Mononitrate 24hr Er 60 Mg Tab.Er.24h) 60 mg PO BID [facility] Stop: 11/02/25 08:59 Last Admin: 11/02/24 08:52 Dose: 60 mg Ondansetron HCl (Ondansetron 4 Mg/2 Ml Vial) 4 mg IV-PUSH Q8H PRN PRN Reason: Nausea And Vomiting Stop: 11/01/25 23:31 Pantoprazole Sodium (Pantoprazole 40 Mg Tablet.Dr) 40 mg PO DAILY [facility] Stop: 11/02/25 08:59 Last Admin: 11/02/24 08:52 Dose: 40 mg Paricalcitol (Paricalcitol 10 Mcg/2 Ml Vial) 5 mcg IV-PUSH MoWeFr@0815 [facility] Stop: 11/02/25 08:14 Last Admin: 11/02/24 09:18 Dose: 5 mcg Sertraline HCl (Sertraline 100 Mg Tablet) 100 mg PO DAILY [facility] Stop: 11/02/25 08:59 Last Admin: 11/02/24 08:52 Dose: 100 mg Sodium Chloride (Sodium Chloride 0.9 % 10 Ml Syringe) 0 ml IV-PUSH PRN PRN PRN Reason: Flush Stop: 11/01/25 20:25 Last Admin: 11/01/24 22:20 Dose: 10 ml Sodium Chloride (Sodium Chloride 0.9 % 10 Ml Syringe) 0 ml IV-PUSH PRN PRN PRN Reason: Flush Stop: 11/02/25 08:13 Last Admin: 11/02/24 09:19 Dose: 10 ml Exam Physical Exam Vital Signs: Temp Pulse Resp BP Pulse Ox O2 Del Method 36.4 C 71 18 157/76 H 99 Room Air 11/02/24 09:00 11/02/24 11:30 11/02/24 09:00 11/02/24 11:30 11/02/24 09:00 11/02/24 09:00 Narrative: Constitutional: Appears comfortable, occasional cough. HEENT: He has mild pallor with no jaundice or cyanosis. Cardiovascular: RRR, 2/6 systolic murmur. Normal S1-S2, no gallop or rub, No JVD Respiratory: Expanded chest, adequate air entry bilaterally with scattered wheezes. No crackles. Gastrointestinal: Soft, non tender, positive bowel sounds. No palpable organs or masses. Extremities: Trace edema Skin: No rashes or bruises Musculoskeletal: No joints swellings or inflammation Neurology: Awake, alert, oriented ?3, No focal motor or sensory deficits Psych: Normal mood and affect Vascular access: Left arm AV fistula with good blood flow Results - Nephrology Labs 11/01/24 20:49 11/02/24 05:40 Labs: 11/01/24 11/01/24 11/02/24 20:49 21:56 05:40 BUN 100 H 100 H Creatinine 9.89 H 10.70 H D Albumin 3.9 Urine Color Light-yellow Urine Appearance Clear Urine pH 7.0 Ur Specific Young Harris 1.010 Urine Protein 200 H Urine Glucose (UA) 200 H Urine Ketones Negative Urine Occult Blood 2+ H Urine Nitrite Negative Ur Leukocyte Esterase Negative Urine RBC 10-19 H Urine WBC 3-4 Urine Bacteria Rare Radiology Impressions Impressions - last 24 hours: Impressions Abdomen/Pelvis CT 11/01/24 20:54 IMPRESSION: No acute findings. Body wall anasarca. Impression dictated by: Yoel Mart Jr., D.O.11/02/2024 8:47 AM Dictation Location: [facility]-22 Chest X-Ray 11/01/24 20:54 IMPRESSION: NO ACUTE FINDINGS Impression dictated by: Yoel Mart Jr., D.O.11/02/2024 8:28 AM Dictation Location: [facility] 11/01/24 20:54 IMPRESSION: NO ACUTE INTRACRANIAL ABNORMALITY. Impression dictated by: Yoel Mart Jr., D.O.11/02/2024 8:28 AM Dictation Location: [facility]--22 Any impression(s) listed above is documentation that was entered by the reading physician into a diagnostic report(s) for Yoel Werner. I have reviewed the report(s) and am incorporating any findings in the treatment plan of this patient where applicable. ECG Data Attestation: I reviewed this ECG and interpreted as documented below: ECG Narrative: Normal sinus rhythm. ST-T wave changes on the lateral leads A&P - Nephrology Assessment/Plan (1) ESRD (end stage renal disease) on dialysis: Assessment/Problem Details: Patient has ESRD related to DM and atherosclerotic renovascular disease on hemodialysis in February 2023 at [place] dialysis unit on MWF schedule (2) Acute hyperkalemia: Assessment/Problem Details: Patient presented with hyperkalemia 6.5 mEq/L as he missed dialysis. (3) Missed dialysis: Assessment/Problem Details: Patient missed one hemodialysis on 10/30 as blood sugar was low and he is not able to go to dialysis this morning because of abdominal discomfort and nausea possible fluid overload. (4) Hypertensive CKD, ESRD on dialysis: Assessment/Problem Details: Blood pressure was elevated on admission with fluid overload since he missed multiple dialysis. He is on amlodipine and furosemide. No significant edema. (5) T wave inversion in EKG: Assessment/Problem Details: Patient has ST-T wave inversion in the EKG in the setting of hyperkalemia. He is a high risk for CAD. Troponins mildly elevated. (6) Type 1 diabetes mellitus with hyperglycemia: Assessment/Problem Details: Patient has labile type 1 diabetes with episodes of hypo and hyperglycemia. (7) Anemia in chronic kidney disease: Assessment/Problem Details: Hemoglobin at target between 10 and 12 g/dL on erythropoietin. He has reported MGUS. (8) Secondary hyperparathyroidism: Assessment/Problem Details: Patient paricalcitol with dialysis. Plan * Hemodialysis today vascular follow-up, 2K bath. 4 L ultrafiltration as tolerated. * Continue amlodipine 5 mg daily and hydralazine 100 mg twice daily. Blood pressure is improving with ultrafiltration. * Continue furosemide 80 mg daily. * Hemoglobin at target. Continue epoetin alexus 14,000 U with each hemodialysis. He also gets ferric sodium gluconate 125 mg every other week. * Continue paricalcitol 5 mcg with each hemodialysis. Continue calcium acetate 1334 mg with each meal. Will recommend repeat EKG and troponin after hemodialysis to ensure that ST-T wave changes resolved after resolution of hyperkalemia. Will monitor the patient during hospital stay. Next hemodialysis will be on Saturday if the patient is still in the hospital otherwise he can be dischargedif no other issues. Documented By: Bryce Coy MD 11/02/24 1202 Signed By: <Electronically signed by MD Bryce Coy> 11/02/24 [id number] [facility] Work Phone: [phone] [place] [id number] Nephrology Consult Note Signed Patient: Yoel Werner MR#: [id number] : 1985 Acct:[id number] Age/Sex: 39 / M Adm Date: 5 Loc: Room: [address] [place] [address] Type: ADM INOo Attending Dr: Law Cano MD Copies to: DO Bryce Leblanc MD Marwan Wassouf, MD~ Providers Consult Date: 11/02/24 Requesting Provider: Lwa Cano MD Primary Care Provider: Eusebio Olivares DO [facility] Reason for Consult: Management of ESRD and dialysis during hospital stay History of Present Illness: Mr. Werner is a 39-year-old white male with history of ESRD related to DM2 ondialysis on MWF schedule at [place] dialysis unit. Other medical problems include CAD s/p W[place] s/p stents, HFpEF and recurrent episodes of hypoglycemia. Patient currently has functioning left arm AV fistula. He is undergoing evaluation for pancreas and kidney transplant at [facility]. Patient presented to theER on 11/01 with nausea, vomiting and generalized weakness. He was evaluated at the ER on 10/30 for hypoglycemia not able to hold dialysis. Patient was discharged after improvement of his glucose however he was not able to present to the dialysis unit today as well because of generalized weakness. On arrival,blood pressure was elevated 175/86. Potassium was elevated 6.4 mEq/L. Patient was given D50 and calcium gluconate. CT scan of the abdomen was unremarkable except of soft tissue edema. He was admitted for further evaluation and nephrology was consulted for management of ESRD and dialysis during hospital stay. Patient is being seen and examined on hemodialysis. Blood pressure did improve down to 157/76 with ultrafiltration. He is at least 4 to 4.5 kg above estimateddry weight. He has no fever or chills. Pulse ox 99% on room air. He stated that nausea andvomiting is improving. All labs reviewed. Hemoglobin 10.5, WBCs count 5.9. Potassium did improve however still elevated 6 mmol/L. He has mild acidosis with CO2 18.8 mmol/L. BUN 100 and creatinine 10.7 since he missed 1 hemodialysis treatment. Patient was tested negative for COVID-19 Review of Systems Review of Systems All other systems reviewed & are negative unless noted below or in HPI [facility] Medical History Contusion of right lower extremity Chronic heart failure with preserved ejection fraction (HFpEF) Type 1 diabetes mellitus with hyperglycemia Mitral regurgitation Wellness examination Hypertensive CKD, ESRD on dialysis Secondary hyperparathyroidism Dependence on renal dialysis Sat-Sat-Sat EBENEZER (generalized anxiety disorder) Mixed hyperlipidemia Monoclonal (M) protein disease, multiple 'M' protein Insomnia Cataract left eye-removed ASHD (arteriosclerotic heart disease) Echo: LVEF 60%, LVH, normal RV function but enlarged, RVSP elevated, severe MR - 08/2024, LHC x 5, PCI/stent prox LAD x 3 - October 2022 - residual disease in LCx and RCA not able to treat surgically, PCI/stent RCA x 2 - January 2023, No intervention - 02/2024 Primary hypertension Peyronie's disease Erectile dysfunction due to arterial insufficiency Chronic venous insufficiency Anemia in chronic kidney disease CAD (coronary artery disease) Diabetes mellitus Depression AV fistula left arm Asthmatic bronchitis , chronic PTSD (post-traumatic stress disorder) MGUS (monoclonal gammopathy of unknown significance) History of blood transfusion 2020 Diabetic retinopathy History of myocardial infarction 2021 Surgical History H/O heart artery stent (~02/2024) x5, PCI/stent prox LAD x 3 - October 2022 - residual disease in LCx and RCA not able to treat surgically, PCI/stent RCA x 2 - January 2023, No intervention - 02/2024 History of bone marrow biopsy H/O eye surgery right and left repair retina Hx of knee surgery scope at age 17 Hx of vasectomy 7yrs ago Family History Mother Liver disease Diabetes Pancreatic cancer Father Diverticulitis Hypertension IBS (irritable bowel syndrome) Stroke Heart disease History of stroke Family history of mental disorder Social History Smoking Status: Never smoker Tobacco Type: cigarettes Substance Use Type: None Substance Abuse Comment: Has not used in a few months ; Medical card that in Sep 2023 Social History Comments: lives with dad Meds Medications & Allergies Allergies ticagrelor (From Brilinta) Allergy (Verified 11/01/24 20:26) shortness of breath Home Medications nitroglycerin 0.4 mg sublingual tablet 0.4 mg sublingual Q5MIN.X3 PRN Chest Pain30 days #25 tabs 11/17/21 [Rx Confirmed 11/01/24] aspirin 81 mg chewable tablet (Children's Aspirin) 81 mg PO QAM 09/10/22 [History Confirmed 11/01/24] isosorbide mononitrate 60 mg tablet,extended release 24 hr 60 mg PO BID 11/12/22[History Confirmed 11/01/24] calcium acetate 667 mg tablet 1,334 mg PO TID 11/13/23 [History Confirmed 11/01/24] 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 meter,continuous (FreeStyle Ramy 3 [place]) #1 ea 03/19/24 [Rx Confirmed 11/01/24] omeprazole 40 mg capsule,delayed release See Rx Instructions .Route .COMPLEX #90caps 04/21/24 [Rx Confirmed 11/01/24] 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 sensor (FreeStyle Ramy 3 Plus Sensor device) #1 ea 05/17/24 [Rx Confirmed 11/01/24] famotidine 20 mg tablet 40 mg PO QPM 06/22/24 [History Confirmed 11/01/24] carvedilol 25 mg tablet See Rx Instructions .Route .COMPLEX #180 tabs 07/21/24 [Rx Confirmed 11/01/24] sertraline 100 mg tablet See Rx Instructions .Route .COMPLEX #90 tabs 07/21/24 [Rx Confirmed 11/01/24] hydralazine 100 mg tablet 100 mg PO BID 30 days #60 tabs 08/07/24 [Rx Confirmed 11/01/24] clopidogrel 75 mg tablet (Plavix) 75 mg PO DAILY 08/28/24 [History Confirmed 11/01/24] furosemide 80 mg tablet (Lasix) 80 mg PO BID@0800,1600 30 days #60 tabs 08/29/24[Rx Confirmed 11/01/24] acetaminophen 500 mg tablet 1,000 mg (2 x 500 mg) PO TID PRN pain 15 days #90 tabs 09/02/24 [Rx Confirmed 11/01/24] atorvastatin 80 mg tablet 80 mg PO QAM 09/16/24 [History Confirmed 11/01/24] blood sugar diagnostic (Accu-Chek Guide test strips) #100 ea 10/14/24 [Rx Confirmed 11/01/24] 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 meter (Accu-Chek Guide Glucose Meter) #1 ea 10/14/24 [Rx Confirmed 11/01/24] insulin lispro 100 unit/mL subcutaneous pen (Humalog KwikPen (U-100) Insulin) See Protocol subcut USEASDIRECTD 10/14/24 [History Confirmed 11/01/24] lisinopril 20 mg tablet See Rx Instructions .Route .COMPLEX #30 tabs 10/18/24 [Rx Confirmed 11/01/24] hydroxyzine HCl 25 mg tablet 25 mg PO QPM 10/30/24 [History Confirmed 11/01/24] insulin glargine 100 unit/mL (3 mL) subcutaneous pen (Lantus Solostar U-100 Insulin) 20 unit subcutQHS 10/30/24 [History Confirmed 11/01/24] amlodipine 5 mg tablet 5 mg PO DAILY 11/01/24 [History Confirmed 11/01/24] furosemide 40 mg tablet 80 mg PO DAILY 11/01/24 [History Confirmed 11/01/24] Active Medications: Active Medications Acetaminophen (Acetaminophen 325 Mg Tablet) 650 mg PO Q6HR PRN PRN Reason: Pain Scale 1 - 3 or fever Stop: 11/01/25 23:31 Amlodipine Besylate (Amlodipine 5 Mg Tablet) 5 mg PO DAILY [facility] Stop: 11/02/25 08:59 Last Admin: 11/02/24 08:52 Dose: 5 mg Aspirin (Aspirin 81 Mg Tab.Chew) 81 mg PO QAM [facility] Stop: 11/02/25 08:59 Last Admin: 11/02/24 08:52 Dose: 81 mg Atorvastatin Calcium (Atorvastatin 80 Mg Tablet) 80 mg PO QAM [facility] Stop: 11/02/25 08:59 Last Admin: 11/02/24 08:52 Dose: 80 mg Calcium Acetate (Calcium Acetate 667 Mg Capsule) 1,334 mg PO TID [facility] Stop: 11/02/25 08:59 Last Admin: 11/02/24 08:52 Dose: 1,334 mg Carvedilol (Carvedilol 25 Mg Tablet) 25 mg PO BID.WITH.MEALS [facility] Stop: 11/02/25 07:59 Last Admin: 11/02/24 08:53 Dose: 25 mg Clopidogrel Bisulfate (Clopidogrel Bisulfate 75 Mg Tablet) 75 mg PO DAILY [facility] Stop: 11/02/25 08:59 Last Admin: 11/02/24 08:52 Dose: 75 mg Dextrose (Dextrose 50% In Water 25 Gm/50 Ml Syringe) 0 gm IV-PUSH PRN PRN PRN Reason: Hypoglycemia Stop: 11/01/25 23:45 Epoetin Alexus (Epoetin Alexus (Esrd Use) 20,000 Unit/Ml Vial) 14,000 unit IV-PUSH MoWeFr@0900 [facility]; Protocol Stop: 11/02/25 08:59 Last Admin: 11/02/24 09:20 Dose: 14,000 unit Famotidine (Famotidine 20 Mg Tablet) 20 mg PO Q48H [facility] Stop: 11/03/25 20:59 Ferric Sodium Gluconate Complex (Sodium Ferric Gluconat/Sucrose 62.5 Mg/5 Ml Vial) 125 mg IV-PUSH We@0815 [facility] Stop: 11/04/25 08:14 Furosemide (Furosemide 80 Mg Tablet) 80 mg PO DAILY [facility] Stop: 11/02/25 08:59 Last Admin: 11/02/24 08:52 Dose: 80 mg Glucose (Dextrose 40% Gel 15 Gm Tube) 0 gm PO PRN PRN PRN Reason: Hypoglycemia Stop: 11/01/25 23:45 Heparin Sodium (Porcine) (Heparin 10,000 Unit/10 Ml Vial) 2,000 unit IV PRN PRN PRN Reason: Dialysis Stop: 11/02/25 08:13 Last Admin: 11/02/24 09:19 Dose: 2,000 unit Hydralazine HCl (Hydralazine 50 Mg Tablet) 100 mg PO BID [facility] Stop: 11/02/25 08:59 Last Admin: 11/02/24 08:52 Dose: 100 mg Hydroxyzine Pamoate (Hydroxyzine Pamoate 25 Mg Capsule) 25 mg PO QPM [facility] Stop: 11/02/25 20:59 Sodium Chloride (0.9% Sodium Chloride 1,000 Ml) 1,000 mls @ 0 mls/hr MISCELLANE.Q0M PRN PRN Reason: Dialysis Stop: 11/02/25 08:13 Last Infusion: 11/02/24 09:21 Dose: Infused Insulin Aspart (Insulin Aspart 300 Units/3 Ml) 0 units SUBCUT TID.WM.HS [facility]; Protocol Stop: 11/02/25 07:59 Last Admin: 11/02/24 10:29 Dose: Not Given Insulin Glargine (Insulin Glargine 300 Units/3 Ml Insuln.Pen) 20 units SUBCUT QHS [facility] Stop: 11/02/25 21:59 Isosorbide Mononitrate (Isosorbide Mononitrate 24hr Er 60 Mg Tab.Er.24h) 60 mg PO BID [facility] Stop: 11/02/25 08:59 Last Admin: 11/02/24 08:52 Dose: 60 mg Ondansetron HCl (Ondansetron 4 Mg/2 Ml Vial) 4 mg IV-PUSH Q8H PRN PRN Reason: Nausea And Vomiting Stop: 11/01/25 23:31 Pantoprazole Sodium (Pantoprazole 40 Mg Tablet.Dr) 40 mg PO DAILY [facility] Stop: 11/02/25 08:59 Last Admin: 11/02/24 08:52 Dose: 40 mg Paricalcitol (Paricalcitol 10 Mcg/2 Ml Vial) 5 mcg IV-PUSH MoWeFr@0815 [facility] Stop: 11/02/25 08:14 Last Admin: 11/02/24 09:18 Dose: 5 mcg Sertraline HCl (Sertraline 100 Mg Tablet) 100 mg PO DAILY [facility] Stop: 11/02/25 08:59 Last Admin: 11/02/24 08:52 Dose: 100 mg Sodium Chloride (Sodium Chloride 0.9 % 10 Ml Syringe) 0 ml IV-PUSH PRN PRN PRN Reason: Flush Stop: 11/01/25 20:25 Last Admin: 11/01/24 22:20 Dose: 10 ml Sodium Chloride (Sodium Chloride 0.9 % 10 Ml Syringe) 0 ml IV-PUSH PRN PRN PRN Reason: Flush Stop: 11/02/25 08:13 Last Admin: 11/02/24 09:19 Dose: 10 ml Exam Physical Exam Vital Signs: Temp Pulse Resp BP Pulse Ox O2 Del Method 36.4 C 71 18 157/76 H 99 Room Air 11/02/24 09:00 11/02/24 11:30 11/02/24 09:00 11/02/24 11:30 11/02/24 09:00 11/02/24 09:00 Narrative: Constitutional: Appears comfortable, occasional cough. HEENT: He has mild pallor with no jaundice or cyanosis. Cardiovascular: RRR, 2/6 systolic murmur. Normal S1-S2, no gallop or rub, No JVD Respiratory: Expanded chest, adequate air entry bilaterally with scattered wheezes. No crackles. Gastrointestinal: Soft, non tender, positive bowel sounds. No palpable organs or masses. Extremities: Trace edema Skin: No rashes or bruises Musculoskeletal: No joints swellings or inflammation Neurology: Awake, alert, oriented ?3, No focal motor or sensory deficits Psych: Normal mood and affect Vascular access: Left arm AV fistula with good blood flow Results - Nephrology Labs 11/01/24 20:49 11/02/24 05:40 Labs: 11/01/24 11/01/24 11/02/24 20:49 21:56 05:40 BUN 100 H 100 H Creatinine 9.89 H 10.70 H D Albumin 3.9 Urine Color Light-yellow Urine Appearance Clear Urine pH 7.0 Ur Specific Young Harris 1.010 Urine Protein 200 H Urine Glucose (UA) 200 H Urine Ketones Negative Urine Occult Blood 2+ H Urine Nitrite Negative Ur Leukocyte Esterase Negative Urine RBC 10-19 H Urine WBC 3-4 Urine Bacteria Rare Radiology Impressions Impressions - last 24 hours: Impressions Abdomen/Pelvis CT 11/01/24 20:54 IMPRESSION: No acute findings. Body wall anasarca. Impression dictated by: Yoel Mart Jr., D.O.11/02/2024 8:47 AM Dictation Location: [facility]-22 Chest X-Ray 11/01/24 20:54 IMPRESSION: NO ACUTE FINDINGS Impression dictated by: Yoel Mart Jr., D.O.11/02/2024 8:28 AM Dictation Location: [facility]-[address] 11/01/24 20:54 IMPRESSION: NO ACUTE INTRACRANIAL ABNORMALITY. Impression dictated by: Yoel Mart Jr., D.O.11/02/2024 8:28 AM Dictation Location: [facility] Any impression(s) listed above is documentation that was entered by the reading physician into a diagnostic report(s) for Yoel Werner. I have reviewed the report(s) and am incorporating any findings in the treatment plan of this patient where applicable. ECG Data Attestation: I reviewed this ECG and interpreted as documented below: ECG Narrative: Normal sinus rhythm. ST-T wave changes on the lateral leads A&P - Nephrology Assessment/Plan (1) ESRD (end stage renal disease) on dialysis: Assessment/Problem Details: Patient has ESRD related to DM and atherosclerotic renovascular disease on hemodialysis in February 2023 at [place] dialysis unit on MWF schedule (2) Acute hyperkalemia: Assessment/Problem Details: Patient presented with hyperkalemia 6.5 mEq/L as he missed dialysis. (3) Missed dialysis: Assessment/Problem Details: Patient missed one hemodialysis on 10/30 as blood sugar was low and he is not able to go to dialysisthis morning because of abdominal discomfort and nausea possible fluid overload. (4) Hypertensive CKD, ESRD on dialysis: Assessment/Problem Details: Blood pressure was elevated on admission with fluid overload since he missed multiple dialysis. He is on amlodipine and furosemide. No significant edema. (5) T wave inversion in EKG: Assessment/Problem Details: Patient has ST-T wave inversion in the EKG in the setting of hyperkalemia. He is a high risk for CAD. Troponins mildly elevated. (6) Type 1 diabetes mellitus with hyperglycemia: Assessment/Problem Details: Patient has labile type 1 diabetes with episodes of hypo and hyperglycemia. (7) Anemia in chronic kidney disease: Assessment/Problem Details: Hemoglobin at target between 10 and 12 g/dL on erythropoietin. He has reported MGUS. (8) Secondary hyperparathyroidism: Assessment/Problem Details: Patient paricalcitol with dialysis. Plan * Hemodialysis today vascular follow-up, 2K bath. 4 L ultrafiltration as tolerated. * Continue amlodipine 5 mg daily and hydralazine 100 mg twice daily. Blood pressure is improving with ultrafiltration. * Continue furosemide 80 mg daily. * Hemoglobin at target. Continue epoetin alexus 14,000 U with each hemodialysis. He also gets ferric sodium gluconate 125 mg every other week. * Continue paricalcitol 5 mcg with each hemodialysis. Continue calcium acetate 1334 mg with each meal. Will recommend repeat EKG and troponin after hemodialysis to ensure that ST-T wave changes resolvedafter resolution of hyperkalemia. Will monitor the patient during hospital stay. Next hemodialysis will be on Saturday if the patient is still in the hospital otherwise he can be dischargedif no other issues. Documented By: Bryce Coy MD 11/02/24 1202 Signed By: 11/02/24 1228 [facility]03-17-2025 Radiology Diagnostic study note [facility] [place] [address] [place], [place] [id number] CT Scan Report Signed Patient: Yoel Werner MR#: [id number] : 1985 Acct:[id number] Age/Sex: 39 / M ADM Date: 5 Loc: 3T Room: [address] [place] [address] Type: ADM INOo Attending Dr: Law Cano MD Copies to: DO Law Craig MD~ Ordering Provider: Hector Mann DO Date of Service: 11/01/24 CT/CT abdomen pelvis wo con: f CT ABDOMEN AND PELVIS WITHOUT INTRAVENOUS CONTRAST: CLINICAL HISTORY: Nausea vomiting diarrhea fatigue and weakness headache. COMPARISON: CT abdomen and pelvis 09/15/2024 TECHNIQUE: Spiral images were obtained through the abdomen and pelvis without intravenous contrast.This CT exam was performed using one or more following dose reduction techniques: Automated exposure control, adjustment of the mA and/or kV according to patient size, or use of iterative reconstruction technique. FINDINGS: Lung Bases: [Mild bibasilar scarring.] Organs:Suboptimal evaluation due to lack of IV contrast. Liver gallbladder spleen pancreas and adrenal glands appear unremarkable.[ GI: Stomach is grossly unremarkable. Small bowel appears nondilated. No acute colonic abnormality.[ Pelvis:[Urinary bladder prostate gland appear unremarkable.] Peritoneum/Retroperitoneum:No free air. No lymphadenopathy. No free fluid.[ Abd wall/Bones:Body wall anasarca. Osseous structures demonstrate no acute process.[ CT/CT abdomen pelvis wo con IMPRESSION: No acute findings. Body wall anasarca. Impression dictated by: Yoel Mart Jr., D.O.11/02/2024 8:47 AM Dictation Location: [place] [address] Transcribed By: [facility] 11/02/24 0847 Dictated By: Yoel Mart Jr, DO 11/02/24 0828 Signed By: 11/02/24 0847 [facility]03-17-2025 Radiology Diagnostic study note [facility] [place] [address] CT Scan Report Signed Patient: Yoel Werner MR#: [id number] : 1985 Acct:[id number] Age/Sex: 39 / M ADM Date: 5 Loc: 3T Room: [address] [place] [address] Type: ADM INOo Attending Dr: Law Cano MD Copies to: DO Law Craig MD~ Ordering Provider: Hector Mann DO Date of Service: 11/01/24 CT/CT head/brain wo con: f CT BRAIN WITHOUT CONTRAST: CLINICAL HISTORY: Headache nausea vomiting diarrhea fatigue weakness. COMPARISON: CT brain 08/12/2022 TECHNIQUE: Contiguous axial unenhanced images were obtained through the brain. This CT exam was performed using one or more following dose reduction techniques: Automated exposure control, adjustmentof the mA and/or kV accordingto patient size, or use of iterative reconstruction technique. FINDINGS: There is no evidence of midline shift, intra or extra-axial fluid collection, hemorrhage or CT evidence of stroke. Posterior fossa appears unremarkable. Visualized intraorbital contents demonstrate no acute findings. Visualized paranasal sinuses are clear. The surrounding soft tissues are normal. CT/CT head/brain wo con IMPRESSION: NO ACUTE INTRACRANIAL ABNORMALITY. Impression dictated by: Yoel Mart Jr., D.O.11/02/2024 8:28 AM Dictation Location: [place] [address] Transcribed By: BRENNAN 11/02/24827 Dictated By: Yoel Mart Jr, DO 11/02/24 0827 Signed By: 11/02/24 0828 [facility]03-17-2025 History and physical note Author Judd Jacobs [facility] Note Date/Time November 01, 2024 11: 46pm [facility] [address] [place] [address] Hospitalist H&P Signed Patient: Yoel Werner MR#: [id number] : 1985 Acct:[id number] Age/Sex: 39 / M Adm Date: 5 Loc: 3T Room: [address] [place] [address] Type: ADM INOo Attending Dr: Judd Jacobs MD Copies to: DO Judd Leblanc MD~ HPI DATE OF EXAMINATION: 11/01/24 CHIEF COMPLAINT: nausea/vomiting HISTORY OF PRESENT ILLNESS: 39 year old man with history of DM1, HTN, CAD, chronic diastolic CHF, ESRD on HDMWF presenting with nausea vomiting and generalized weakness Note pt was seen in the ED on 10/30 for hypoglycemia- he missed his dialysis session as a result. upon discharge, pt was tired and missed the rescheduled session as well pt has had nausea vomiting headache and generalized weakness this weekend- he recognizes these symptoms as those he gets when he misses dialysis Pt presented to the ED for evaluation, vital signs on arrival WNL except for a BP of 175/86. labs notable for K of 6.4 - given insulin D50 and calcium gluconate. Pt is admitted for further evaluation and mgmt ROS: 10 systems reviewed and were negative except as noted in the HPI Assessment and Plan: ESRD on HD missed hemodialysis hyperkalemia- K 6.4, no associated hyperkalemic ECG changes admit to medicine monitor on telemetry given appropriate hyperkalemia cocktail in ED nephrology consult entered plan for hemodialysis in am DM1- continue long acting insulin at home dose, accucheck ac/hs, SSI, hypoglycemia protocol HTN- continue home anithypertensive medications VTE prophyalxis- SCDs FULL CODE [facility] Medical History Contusion of right lower extremity Chronic heart failure with preserved ejection fraction (HFpEF) Type 1 diabetes mellitus with hyperglycemia Mitral regurgitation Wellness examination Hypertensive CKD, ESRD on dialysis Secondary hyperparathyroidism Dependence on renal dialysis Mon-Sat-Sat EBENEZER (generalized anxiety disorder) Mixed hyperlipidemia Monoclonal (M) protein disease, multiple 'M' protein Insomnia Cataract left eye-removed ASHD (arteriosclerotic heart disease) Echo: LVEF 60%, LVH, normal RV function but enlarged, RVSP elevated, severe MR - 08/2024, LHC x 5, PCI/stent prox LAD x 3 - October 2022 - residual disease in LCx and RCA not able to treat surgically, PCI/stent RCA x 2 - January 2023, No intervention - 02/2024 Primary hypertension Peyronie's disease Erectile dysfunction due to arterial insufficiency Chronic venous insufficiency Anemia in chronic kidney disease CAD (coronary artery disease) Diabetes mellitus Depression AV fistula left arm Asthmatic bronchitis , chronic PTSD (post-traumatic stress disorder) MGUS (monoclonal gammopathy of unknown significance) History of blood transfusion 2020 Diabetic retinopathy History of myocardial infarction 2021 Surgical History H/O heart artery stent (~02/2024) x5, PCI/stent prox LAD x 3 - October 2022 - residual disease in LCx and RCA not able to treat surgically, PCI/stent RCA x 2 - January 2023, No intervention - 02/2024 History of bone marrow biopsy H/O eye surgery right and left repair retina Hx of knee surgery scope at age 17 Hx of vasectomy 7yrs ago Family History Mother Liver disease Diabetes Pancreatic cancer Father Diverticulitis Hypertension IBS (irritable bowel syndrome) Stroke Heart disease History of stroke Family history of mental disorder Social History Smoking Status: Never smoker Tobacco Type: cigarettes Substance Use Type: None Substance Abuse Comment: Has not used in a few months ; Medical card that in Sep 2023 Social History Comments: lives with dad Meds Medications and Allergies Allergies ticagrelor (From Brilinta) Allergy (Verified 11/01/24 20:26) shortness of breath Home Medications nitroglycerin 0.4 mg sublingual tablet 0.4 mg sublingual Q5MIN.X3 PRN Chest Pain30 days #25 tabs 11/17/21 [Rx Confirmed 11/01/24] aspirin 81 mg chewable tablet (Children's Aspirin) 81 mg PO QAM 09/10/22 [History Confirmed 11/01/24] isosorbide mononitrate 60 mg tablet,extended release 24 hr 60 mg PO BID 11/12/22[History Confirmed 11/01/24] calcium acetate 667 mg tablet 1,334 mg PO TID 11/13/23 [History Confirmed 11/01/24] 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 meter,continuous (FreeStyle Ramy 3 Tornillo) #1 ea 03/19/24 [Rx Confirmed 11/01/24] omeprazole 40 mg capsule,delayed release See Rx Instructions .Route .COMPLEX #90caps 04/21/24 [Rx Confirmed 11/01/24] 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 sensor (FreeStyle Ramy 3 Plus Sensor device) #1 ea 05/17/24 [Rx Confirmed 11/01/24] famotidine 20 mg tablet 40 mg PO QPM 06/22/24 [History Confirmed 11/01/24] carvedilol 25 mg tablet See Rx Instructions .Route .COMPLEX #180 tabs 07/21/24 [Rx Confirmed 11/01/24] sertraline 100 mg tablet See Rx Instructions .Route .COMPLEX #90 tabs 07/21/24 [Rx Confirmed 11/01/24] hydralazine 100 mg tablet 100 mg PO BID 30 days #60 tabs 08/07/24 [Rx Confirmed 11/01/24] clopidogrel 75 mg tablet (Plavix) 75 mg PO DAILY 08/28/24 [History Confirmed 11/01/24] furosemide 80 mg tablet (Lasix) 80 mg PO BID@0800,1600 30 days #60 tabs 08/29/24[Rx Confirmed 11/01/24] acetaminophen 500 mg tablet 1,000 mg (2 x 500 mg) PO TID PRN pain 15 days #90 tabs 09/02/24 [Rx Confirmed 11/01/24] atorvastatin 80 mg tablet 80 mg PO QAM 09/16/24 [History Confirmed 11/01/24] blood sugar diagnostic (Accu-Chek Guide test strips) #100 ea 10/14/24 [Rx Confirmed 11/01/24] 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 meter (Accu-Chek Guide Glucose Meter) #1 ea 10/14/24 [Rx Confirmed 11/01/24] insulin lispro 100 unit/mL subcutaneous pen (Humalog KwikPen (U-100) Insulin) See Protocol subcut USEASDIRECTD 10/14/24 [History Confirmed 11/01/24] lisinopril 20 mg tablet See Rx Instructions .Route .COMPLEX #30 tabs 10/18/24 [Rx Confirmed 11/01/24] hydroxyzine HCl 25 mg tablet 25 mg PO QPM 10/30/24 [History Confirmed 11/01/24] insulin glargine 100 unit/mL (3 mL) subcutaneous pen (Lantus Solostar U-100 Insulin) 20 unit subcut QHS 10/30/24 [History Confirmed 11/01/24] amlodipine 5 mg tablet 5 mg PO DAILY 11/01/24 [History Confirmed 11/01/24] furosemide 40 mg tablet 80 mg PO DAILY 11/01/24 [History Confirmed 11/01/24] Exam Physical Exam Vital Signs: Temp Pulse Resp BP Pulse Ox O2 Del Method 97.8 F 71 13 179/85 H 98 Room Air 11/01/24 20:27 11/01/24 23:28 11/01/24 22:26 11/01/24 23:28 11/01/24 22:26 11/01/24 22:26 Const General: cooperative, no acute distress and well developed HEENT Head: normal to inspection Ears: external ears normal Nose: external nose normal Face and sinus: normal facial exam Mouth: oral mucosae normal Throat: posterior oropharynx normal Eyes General: appearance normal, both eyes and all related structures Visual Cavanaugh: normal visual cavanaugh by confrontation Sclera: sclerae normal Pupils: PERRL and accommodation normal Neck Neck: normal visual inspection, no lymphadenopathy and supple Thyroid: thyroid normal Lymphatic: no lymphadenopathy noted Chest Chest palpation & inspection: normal inspection of the chest Resp Effort & Inspection: normal respiratory effort, able to speak in complete sentences and symmetric chest movement Auscultation: clear to auscultation bilaterally Cardio Palpation: normal PMI Rate: regular rate Rhythm: regular rhythm Heart Sounds: S1 normal, S2 normal and murmur (3/6 systolic murmur heard throughout the precordium) GI Inspection: normal to inspection Palpation: soft Auscultation: normal bowel sounds General: bladder normal to palpation Musc Cervical Spine: cervical ROM normal Thoracic/Lumbar Spine: thoracic and lumbar spine normal to inspection Skin General: no rashes or lesions noted and turgor normal Neuro General: patient alert, patient awake and patient oriented x3 Speech: speech normal Extrem General: normal to inspection and full ROM Psych Appearance: grossly normal Mental Status: mental status grossly normal Affect: normal affect Speech and Movement: speech and movement normal Attitude: cooperative Results - Hospitalist H&P Lab Results Labs: Laboratory Last Values Corrected WBC 5.9 X10E3/uL (4.1-10.5) 11/01/24 20:49 Uncorrected WBC Count 5.9 x10E3/uL (4.1-10.5) 11/01/24 20:49 RBC 3.68 x10E6/uL (3.90-5.60) L 11/01/24 20:49 Hgb 10.5 g/dL (13.0-17.0) L 11/01/24 20:49 Hct 31.0 % (38.8-50.0) L 11/01/24 20:49 MCV 84.3 fl (83.5-101) 11/01/24 20:49 MCH 28.6 pg (27.5-35.2) 11/01/24 20:49 MCHC 33.9 g/dL (32.5-35.6) 11/01/24 20:49 RDW 15.4 % (12.0-14.8) H 11/01/24 20:49 Plt Count 142 x10E3/uL (150-450) L 11/01/24 20:49 MPV 7.3 fl (6.6-10.1) 11/01/24 20:49 Neut % (Auto) 72.4 % (.) 11/01/24 20:49 Lymph % (Auto) 13.5 % (.) 11/01/24 20:49 Pershing % (Auto) 6.3 % (.) 11/01/24 20:49 Eos % (Auto) 5.7 % (.) 11/01/24 20:49 Baso % (Auto) 2.1 % (.) 11/01/24 20:49 Nucleat RBC Rel Count 0.0 /100 WBC (0-0.5) 11/01/24 20:49 Neut # (Auto) 4.3 x10E3/uL (1.8-7.7) 11/01/24 20:49 Lymph # (Auto) 0.8 x10E3/uL (1.00-4.8) L 11/01/24 20:49 Pershing # (Auto) 0.4 x10E3/uL (0.0-0.8) 11/01/24 20:49 Eos # (Auto) 0.3 x10E3/uL (0.0-0.45) 11/01/24 20:49 Baso # (Auto) 0.1 x10E3/uL (0.0-0.2) 11/01/24:49 Monocyte Dist Width 17.06 % (0.00-20.00) 11/01/24 20:49 PT 13.5 Seconds (9.0-12.9) H 11/01/24 20:49 INR 1.2 11/01/24 20:49 PHA Creatinine Clear 10.86 11/01/24 20:49 Sodium 133 mmol/L (136-145) L 11/01/24 20:49 Potassium 6.4 mmol/L (3.5-5.1) H* 11/01/24 20:49 Chloride 97 mmol/L (98-107) L 11/01/24 20:49 Carbon Dioxide 19.5 mmol/L (21.0-31.0) L 11/01/24 20:49 Anion Gap 22.9 mEq/L (6.0-15.0) H 11/01/24 20:49 BUN 100 mg/dL (7-25) H 11/01/24 20:49 Creatinine 9.89 mg/dL (0.70-1.30) H 11/01/24 20:49 Est GFR (CKD-EPI) 6.278 mL/Min 11/01/24 20:49 Glucose 127 mg/dL (70-100) H 11/01/24 20:49 POC Glucose 128 mg/dl 11/01/24 20:47 POC Glucose Comment Glu2: cleaned meter 11/01/24 20:47 Lactic Acid 0.5 mmol/L (0.5-1.9) 11/01/24 20:49 Calcium 8.9 mg/dL (8.6-10.3) 11/01/24 20:49 Magnesium 2.8 mg/dL (1.9-2.7) H 11/01/24 20:49 Total Bilirubin 0.7 mg/dl (0.3-1.0) 11/01/24 20:49 AST 24 U/L (13-39) 11/01/24 20:49 ALT 21 U/L (7-52) 11/01/24 20:49 Alkaline Phosphatase 55 U/L (34-104) 11/01/24 20:49 Total Creatine Kinase 226 U/L (30-223) H 11/01/24 20:49 Troponin I High Sens 62 ng/L (0-20) H* 11/01/24 20:49 B-Natriuretic Peptide 1961.0 pg/mL (5-100) H 11/01/24 20:49 Total Protein 6.9 gm/dL (6.4-8.9) 11/01/24 20:49 Albumin 3.9 gm/dL (3.5-5.7) 11/01/24 20:49 Globulin 3.0 gm/dL 11/01/24 20:49 Albumin/Globulin Ratio 1.3 11/01/24 20:49 Urine Color Light-yellow (Yellow) 11/01/24 21:56 Urine Appearance Clear (Clear) 11/01/24 21:56 Urine pH 7.0 (5.0-9.0) 11/01/24 21:56 Ur Specific Young Harris 1.010 (1.001-1.030) 11/01/24 21:56 Urine Protein 200 mg/dL (Negative) H 11/01/24 21:56 Urine Glucose (UA) 200 mg/dL (Normal) H 11/01/24 21:56 Urine Ketones Negative (Negative) 11/01/24 21:56 Urine Occult Blood 2+ (Negative) H 11/01/24 21:56 Urine Nitrite Negative (Negative) 11/01/24 21:56 Urine Bilirubin Negative (Negative) 11/01/24 21:56 Urine Urobilinogen Normal mg/dL (Normal) 11/01/24 21:56 Ur Leukocyte Esterase Negative (Negative) 11/01/24 21:56 Urine RBC 10-19 /HPF (0-4) H 11/01/24 21:56 Urine WBC 3-4 /HPF (0-4) 11/01/24 21:56 Ur Squamous Epith Cells 1-2 /HPF (0-2) 11/01/24 21:56 Urine Bacteria Rare /HPF (None Seen) 11/01/24 21:56 Hyaline Casts None /LPF (0-8) 11/01/24 21:56 COVID-19 Clin Com Not detected (Not Detecte) 11/01/24 20:49 Microbiology Results Micro: Microbiology - Results from entire visit 11/01/24 20:49 Nasopharyngeal Respiratory Panel (PCR) - Final Assessment & Plan Assessment/Plan (1) Acute hyperkalemia: (2) Missed dialysis: Plan . IP vs OBS Justification Based on differential dx, clinical care plan, and risk of adverse events, if untreated, in my clinical judgement this patient requires an acute care setting as: OBSERVATION because of an expectation of an under 2 midnight stay. Estimated length of stay (# of days): 1 Documented By: Judd Jacobs MD 11/01/246 Signed By: <Electronically signed by Judd Jacobs MD> 11/01/24 1659 [facility] Work Phone: 1(771) 515-977703-17-2025 Evaluation note* Diagnosis Onset Date Resolution Status Admit Date ESRD (end stage renal disease) acute November 01, 2024 10:56pm T wave inversion in EKG acute M arch 2024 10:56pm Uncontrolled hypertension acute November 01, 2024 10:56pm Acute hyperkalemia resolved November 01, 2024 10:56pm Hypertensive CKD, ESRD on dialysis r esolved November 01, 2024 10:56pm Missed dialysis resolved October 10:56pm Secondary hyperparathyroidism resolv ed November 01, 2024 10:56pm Uremia resolved November 01 10:56pm Anemia in chronic kidney disease shade ctive November 01, 2024 10:56pm Type 1 diabetes mellitus wit h hyperglycemia inactive November 01, 2024 10:56pm ESRD (end stage renal diseas e) on dialysis deleted November 01, 2024 10:56pm ASHD (arteriosclerotic heart disease) acute January 12, 2025 2:40pm Chronic bronchitis, mucopurulent acu te January 12, 2025 2:40pm Chronic heart failure with preserved ejection fraction (HFpEF) acute January 12, 2025 2:40pm Contusion of right lower extremity a cute January 12, 2025 2:40pm Primary hypertension acute January 12, 2025 2:40pm Type 1 diabetes mellitus wit h hyperglycemia acute January 12, 2025 2:40pm [facility] Work Phone: 1(212) 394-163603-17-2025 Evaluation note* Diagnosis Onset Date Resolution Status Admit Date ESRD (end stage renal disease) acute November 01, 2024 10:56pm Acute hyperkalemia resolved November 01, 2024 10:56pm Hypertensive CKD, ESRD on dialysis r esolved November 01, 2024 10:56pm Missed dialysis resolved October 10:56pm Secondary hyperparathyroidism resolv ed November 01, 2024 10:56pm Uremia resolved November 01 10:56pm Anemia in chronic kidney disease shade ctive November 01, 2024 10:56pm Type 1 diabetes mellitus wit h hyperglycemia inactive November 01, 2024 10:56pm ESRD (end stage renal diseas e) on dialysis deleted November 01, 2024 10:56pm T wave inversion in EKG deleted M arch 2024 10:56pm Uncontrolled hypertension deleted November 01, 2024 10:56pm ASHD (arteriosclerotic heart disease) acute January 12, 2025 2:40pm Chronic bronchitis, mucopurulent acu te January 12, 2025 2:40pm Chronic heart failure with preserved ejection fraction (HFpEF) acute January 12, 2025 2:40pm Dependence on renal dialysis acute January 12, 2025 2:40pm ESRD (end stage renal disease) acute January 12, 2025 2:40pm Nicotine addiction acute January 122024 2:40pm Primary hypertension acute January 12, 2025 2:40pm Right shoulder pain acute December 182024 2:40pm Type 1 diabetes mellitus wit h hyperglycemia acute January 12, 2025 2:40pm [facility] Work Phone: [phone]) 303-339803-16-2025 [place] [address] Hospitalist H&P Signed Patient: Yoel Werner MR#: [id number] : 1985 Acct:[id number] Age/Sex: 39 / M Adm Date: 5 Loc: Room: [address] [place] [address] Type: ADM INOo Attending Dr: Judd Jacobs MD Copies to: DO Judd Leblanc MD~ HPI DATE OF EXAMINATION: 11/01/24 CHIEF COMPLAINT: nausea/vomiting HISTORY OF PRESENT ILLNESS: 39 year old man with history of DM1, HTN, CAD, chronic diastolic CHF, ESRD on HDMWF presenting withnausea vomiting and generalized weakness Note pt was seen in the ED on 10/30 for hypoglycemia- he missed his dialysis session as a result. upon discharge, pt was tired and missed the rescheduled session as well pt has had nausea vomiting headache and generalized weakness this weekend- he recognizes these symptoms as those he gets when he misses dialysis Pt presented to the ED for evaluation, vital signs on arrival WNL except for a BP of 175/86. labs notable for K of 6.4 - given insulin D50 and calcium gluconate. Pt is admitted for further evaluationand mgmt ROS: 10 systems reviewed and were negative except as noted in the HPI Assessment and Plan: ESRD on HD missed hemodialysis hyperkalemia- K 6.4, no associated hyperkalemic ECG changes admit to medicine monitor on telemetry given appropriate hyperkalemia cocktail in ED nephrology consult entered plan for hemodialysis in am DM1- continue long acting insulin at home dose, accucheck ac/hs, SSI, hypoglycemia protocol HTN- continue home anithypertensive medications VTE prophyalxis- SCDs FULL CODE [facility] Medical History Contusion of right lower extremity Chronic heart failure with preserved ejection fraction (HFpEF) Type 1 diabetes mellitus with hyperglycemia Mitral regurgitation Wellness examination Hypertensive CKD, ESRD on dialysis Secondary hyperparathyroidism Dependence on renal dialysis Sat-Sat-Sat EBENEZER (generalized anxiety disorder) Mixed hyperlipidemia Monoclonal (M) protein disease, multiple 'M' protein Insomnia Cataract left eye-removed ASHD (arteriosclerotic heart disease) Echo: LVEF 60%, LVH, normal RV function but enlarged, RVSP elevated, severe MR - 08/2024, LHC x 5, PCI/stent prox LAD x 3 - October 2022 - residual disease in LCx and RCA not able to treat surgically, PCI/stent RCA x 2 - January 2023, No intervention - 02/2024 Primary hypertension Peyronie's disease Erectile dysfunction due to arterial insufficiency Chronic venous insufficiency Anemia in chronic kidney disease CAD (coronary artery disease) Diabetes mellitus Depression AV fistula left arm Asthmatic bronchitis , chronic PTSD (post-traumatic stress disorder) MGUS (monoclonal gammopathy of unknown significance) History of blood transfusion 2020 Diabetic retinopathy History of myocardial infarction 2021 Surgical History H/O heart artery stent (~02/2024) x5, PCI/stent prox LAD x 3 - October 2022 - residual disease in LCx and RCA not able to treat surgically, PCI/stent RCA x 2 - January 2023, No intervention - 02/2024 History of bone marrow biopsy H/O eye surgery right and left repair retina Hx of knee surgery scope at age 17 Hx of vasectomy 7yrs ago Family History Mother Liver disease Diabetes Pancreatic cancer Father Diverticulitis Hypertension IBS (irritable bowel syndrome) Stroke Heart disease History of stroke Family history of mental disorder Social History Smoking Status: Never smoker Tobacco Type: cigarettes Substance Use Type: None Substance Abuse Comment: Has not used in a few months ; Medical card that in Sep 2023 Social History Comments: lives with dad Meds Medications and Allergies Allergies ticagrelor (From Brilinta) Allergy (Verified 11/01/24 20:26) shortness of breath Home Medications nitroglycerin 0.4 mg sublingual tablet 0.4 mg sublingual Q5MIN.X3 PRN Chest Pain30 days #25 tabs 11/17/21 [Rx Confirmed 11/01/24] aspirin 81 mg chewable tablet (Children's Aspirin) 81 mg PO QAM 09/10/22 [History Confirmed 11/01/24] isosorbide mononitrate 60 mg tablet,extended release 24 hr 60 mg PO BID 11/12/22[History Confirmed 11/01/24] calcium acetate 667 mg tablet 1,334 mg PO TID 11/13/23 [History Confirmed 11/01/24] 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 meter,continuous (FreeStyle Ramy 3 Tornillo) #1 ea 03/19/24 [Rx Confirmed 11/01/24] omeprazole 40 mg capsule,delayed release See Rx Instructions .Route .COMPLEX #90caps 04/21/24 [Rx Confirmed 11/01/24] 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 sensor (FreeStyle Ramy 3 Plus Sensor device) #1 ea 05/17/24 [Rx Confirmed 11/01/24] famotidine 20 mg tablet 40 mg PO QPM 06/22/24 [History Confirmed 11/01/24] carvedilol 25 mg tablet See Rx Instructions .Route .COMPLEX #180 tabs 07/21/24 [Rx Confirmed 11/01/24] sertraline 100 mg tablet See Rx Instructions .Route .COMPLEX #90 tabs 07/21/24 [Rx Confirmed 11/01/24] hydralazine 100 mg tablet 100 mg PO BID 30 days #60 tabs 08/07/24 [Rx Confirmed 11/01/24] clopidogrel 75 mg tablet (Plavix) 75 mg PO DAILY 08/28/24 [History Confirmed 11/01/24] furosemide 80 mg tablet (Lasix) 80 mg PO BID@0800,1600 30 days #60 tabs 08/29/24[Rx Confirmed 11/01/24] acetaminophen 500 mg tablet 1,000 mg (2 x 500 mg) PO TID PRN pain 15 days #90 tabs 09/02/24 [Rx Confirmed 11/01/24] atorvastatin 80 mg tablet 80 mg PO QAM 09/16/24 [History Confirmed 11/01/24] blood sugar diagnostic (Accu-Chek Guide test strips) #100 ea 10/14/24 [Rx Confirmed 11/01/24] 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 meter (Accu-Chek Guide Glucose Meter) #1 ea 10/14/24 [Rx Confirmed 11/01/24] insulin lispro 100 unit/mL subcutaneous pen (Humalog KwikPen (U-100) Insulin) See Protocol subcut USEASDIRECTD 10/14/24 [History Confirmed 11/01/24] lisinopril 20 mg tablet See Rx Instructions .Route .COMPLEX #30 tabs 10/18/24 [Rx Confirmed 11/01/24] hydroxyzine HCl 25 mg tablet 25 mg PO QPM 10/30/24 [History Confirmed 11/01/24] insulin glargine 100 unit/mL (3 mL) subcutaneous pen (Lantus Solostar U-100 Insulin) 20 unit subcutQHS 10/30/24 [History Confirmed 11/01/24] amlodipine 5 mg tablet 5 mg PO DAILY 11/01/24 [History Confirmed 11/01/24] furosemide 40 mg tablet 80 mg PO DAILY 11/01/24 [History Confirmed 11/01/24] Exam Physical Exam Vital Signs: Temp Pulse Resp BP Pulse Ox O2 Del Method 97.8 F 71 13 179/85 H 98 Room Air 11/01/24 20:27 11/01/24 23:28 11/01/24 22:26 11/01/24 23:28 11/01/24 22:26 11/01/24 22:26 Const General: cooperative, no acute distress and well developed HEENT Head: normal to inspection Ears: external ears normal Nose: external nose normal Face and sinus: normal facial exam Mouth: oral mucosae normal Throat: posterior oropharynx normal Eyes General: appearance normal, both eyes and all related structures Visual Caavnaugh: normal visual cavanaugh by confrontation Sclera: sclerae normal Pupils: PERRL and accommodation normal Neck Neck: normal visual inspection, no lymphadenopathy and supple Thyroid: thyroid normal Lymphatic: no lymphadenopathy noted Chest Chest palpation & inspection: normal inspection of the chest Resp Effort & Inspection: normal respiratory effort, able to speak in complete sentences and symmetric chest movement Auscultation: clear to auscultation bilaterally Cardio Palpation: normal PMI Rate: regular rate Rhythm: regular rhythm Heart Sounds: S1 normal, S2 normal and murmur (3/6 systolic murmur heard throughout the precordium) GI Inspection: normal to inspection Palpation: soft Auscultation: normal bowel sounds General: bladder normal to palpation Musc Cervical Spine: cervical ROM normal Thoracic/Lumbar Spine: thoracic and lumbar spine normal to inspection Skin General: no rashes or lesions noted and turgor normal Neuro General: patient alert, patient awake and patient oriented x3 Speech: speech normal Extrem General: normal to inspection and full ROM Psych Appearance: grossly normal Mental Status: mental status grossly normal Affect: normal affect Speech and Movement: speech and movement normal Attitude: cooperative Results - Hospitalist H&P Lab Results Labs: Laboratory Last Values Corrected WBC 5.9 X10E3/uL (4.1-10.5) 11/01/24 20:49 Uncorrected WBC Count 5.9 x10E3/uL (4.1-10.5) 11/01/24 20:49 RBC 3.68 x10E6/uL (3.90-5.60) L 11/01/24 20:49 Hgb 10.5 g/dL (13.0-17.0) L 11/01/24 20:49 Hct 31.0 % (38.8-50.0) L 11/01/24 20:49 MCV 84.3 fl (83.5-101) 11/01/24 20:49 MCH 28.6 pg (27.5-35.2) 11/01/24 20:49 MCHC 33.9 g/dL (32.5-35.6) 11/01/24 20:49 RDW 15.4 % (12.0-14.8) H 11/01/24 20:49 Plt Count 142 x10E3/uL (150-450) L 11/01/24 20:49 MPV 7.3 fl (6.6-10.1) 11/01/24 20:49 Neut % (Auto) 72.4 % (.) 11/01/24 20:49 Lymph % (Auto) 13.5 % (.) 11/01/24 20:49 Pershing % (Auto) 6.3 % (.) 11/01/24 20:49 Eos % (Auto) 5.7 % (.) 11/01/24 20:49 Baso % (Auto) 2.1 % (.) 11/01/24 20:49 Nucleat RBC Rel Count 0.0 /100 WBC (0-0.5) 11/01/24 20:49 Neut # (Auto) 4.3 x10E3/uL (1.8-7.7) 11/01/24 20:49 Lymph # (Auto) 0.8 x10E3/uL (1.00-4.8) L 11/01/24 20:49 Pershing # (Auto) 0.4 x10E3/uL (0.0-0.8) 11/01/24 20:49 Eos # (Auto) 0.3 x10E3/uL (0.0-0.45) 11/01/24 20:49 Baso # (Auto) 0.1 x10E3/uL (0.0-0.2) 11/01/24 20:49 Monocyte Dist Width 17.06 % (0.00-20.00) 11/01/24 20:49 PT 13.5 Seconds (9.0-12.9) H 11/01/24 20:49 INR 1.2 11/01/24 20:49 PHA Creatinine Clear 10.86 11/01/24 20:49 Sodium 133 mmol/L (136-145) L 11/01/24 20:49 Potassium 6.4 mmol/L (3.5-5.1) H* 11/01/24 20:49 Chloride 97 mmol/L (98-107) L 11/01/24 20:49 Carbon Dioxide 19.5 mmol/L (21.0-31.0) L 11/01/24 20:49 Anion Gap 22.9 mEq/L (6.0-15.0) H 11/01/24 20:49 BUN 100 mg/dL (7-25) H 11/01/24 20:49 Creatinine 9.89 mg/dL (0.70-1.30) H 11/01/24 20:49 Est GFR (CKD-EPI) 6.278 mL/Min 11/01/24 20:49 Glucose 127 mg/dL (70-100) H 11/01/24 20:49 POC Glucose 128 mg/dl 11/01/24 20:47 POC Glucose Comment Glu2: cleaned meter 11/01/24 20:47 Lactic Acid 0.5 mmol/L (0.5-1.9) 11/01/24 20:49 Calcium 8.9 mg/dL (8.6-10.3) 11/01/24 20:49 Magnesium 2.8 mg/dL (1.9-2.7) H 11/01/24 20:49 Total Bilirubin 0.7 mg/dl (0.3-1.0) 11/01/24 20:49 AST 24 U/L (13-39) 11/01/24 20:49 ALT 21 U/L (7-52) 11/01/24 20:49 Alkaline Phosphatase 55 U/L (34-104) 11/01/24 20:49 Total Creatine Kinase 226 U/L (30-223) H 11/01/24 20:49 Troponin I High Sens 62 ng/L (0-20) H* 11/01/24 20:49 B-Natriuretic Peptide 1961.0 pg/mL (5-100) H 11/01/24 20:49 Total Protein 6.9 gm/dL (6.4-8.9) 11/01/24 20:49 Albumin 3.9 gm/dL (3.5-5.7) 11/01/24 20:49 Globulin 3.0 gm/dL 11/01/24 20:49 Albumin/Globulin Ratio 1.3 11/01/24 20:49 Urine Color Light-yellow (Yellow) 11/01/24 21:56 Urine Appearance Clear (Clear) 11/01/24 21:56 Urine pH 7.0 (5.0-9.0) 11/01/24 21:56 Ur Specific [place] 1.010 (1.001-1.030) 11/01/24 21:56 Urine Protein 200 mg/dL (Negative) H 11/01/24 21:56 Urine Glucose (UA) 200 mg/dL (Normal) H 11/01/24 21:56 Urine Ketones Negative (Negative) 11/01/24 21:56 Urine Occult Blood 2+ (Negative) H 11/01/24 21:56 Urine Nitrite Negative (Negative) 11/01/24 21:56 Urine Bilirubin Negative (Negative) 11/01/24 21:56 Urine Urobilinogen Normal mg/dL (Normal) 11/01/24 21:56 Ur Leukocyte Esterase Negative (Negative) 11/01/24 21:56 Urine RBC 10-19 /HPF (0-4) H 11/01/24 21:56 Urine WBC 3-4 /HPF (0-4) 11/01/24 21:56 Ur Squamous Epith Cells 1-2 /HPF (0-2) 11/01/24 21:56 Urine Bacteria Rare /HPF (None Seen) 11/01/24 21:56 Hyaline Casts None /LPF (0-8) 11/01/24 21:56 COVID-19 Clin Com Not detected (Not Detecte) 11/01/24 20:49 Microbiology Results Micro: Microbiology - Results from entire visit 11/01/24 20:49 Nasopharyngeal Respiratory Panel (PCR) - Final Assessment & Plan Assessment/Plan (1) Acute hyperkalemia: (2) Missed dialysis: Plan . IP vs OBS Justification Based on differential dx, clinical care plan, and risk of adverse events, if untreated, in my clinical judgement this patient requires an acute care setting as: OBSERVATION because of an expectation of an under 2 midnight stay. Estimated length of stay (# of days): 1 Documented By: Judd Jacobs MD 11/01/24 [id number] Signed By: 11/01/24 1846 [facility]03-11-2025 Note Attestation signed by Godwin Ortiz, PhD at 11/11/2024 11:17 AM By using the attestations below, the signing clinician agrees that I have read and verify that the documentation has been personally reviewed by me and ensure that the documentation accurately reflects the encounter. Office Visit Attestation I provided direct supervision and was involved in the management and care of the patient, initiated the evaluation and treatment plan, was immediately interruptible to provide assistance in the clinic, reviewed and discussed the session activities with the international logistics manager, and reviewed and updated the medical record. I confirm the international logistics manager's documentation. Please note there may be additional personal documentation from me. Department of Psychiatry Psychological Evaluation for Pre-Transplant - Kidney and Pancreas Time In: 10:07 Time Out: 11:07 Encounter Type: Off-Site Video at Remote Location Patient Name: Yoel Werner MRN / CSN: [id number] Date of / Age: 7 1985 / 39 y.o. / male Encounter Date: 10/27/24 Diagnosis: Diagnoses of Nicotine dependence, cigarettes, in remission, History of posttraumatic stress disorder (PTSD), History of anxiety, and Hx of major depression were pertinent to this visit. Care Team Encounter Provider: Maris Sinha Referring Physician (if known): No ref. 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 , male with a pertinent history of ESRD secondary to T1DM, who was referred by [facility]) for psychosocial presurgical evaluation to assess candidacy for his kidney and pancreas transplant. Specific reasons include mental health, social support, and coping skills. The patient was informed of the purpose of this evaluation and agreed to participate. He is aware of the reason for the evaluation and that the information obtained in the interview will be shared with the transplant team. The interview took place via telehealth with the patient at his home in [place], [place] and the clinician at [facility] Department of Psychiatry. Relevant Medical History Per medical chart and patient report, patient was last seen by [facility] transplant provider, Dr. Cardenas, on 09/08/2024. Yoel Werner's medical history is significant for ESRD; T1DM with chronic kidney disease on chronic dialysis. Medical History Medical Diagnoses Patient Active Problem List Diagnosis Acute hypoxic respiratory failure (CMS/HCC) Acute metabolic encephalopathy Anasarca Anemia in chronic kidney disease Coronary artery disease involving [place] coronary artery of [place] heart without angina pectoris AV fistula stenosis BMI 21.0-21.9, adult Chest pain CHF (congestive heart failure) ([facility]) Chronic bronchitis, mucopurulent ([facility]) Chronic venous insufficiency Cigarette nicotine dependence without complication Current every day smoker Diabetes mellitus ([facility]) Encephalopathy Erectile dysfunction due to arterial insufficiency End stage renal disease ([facility]) Hypertension, essential EBENEZER (generalized anxiety disorder) HCAP (healthcare-associated pneumonia) History of [place] (myocardial infarction) Hyperkalemia Hyperlipidemia Hypertensive emergency Hypoxemia Ischemic cardiomyopathy MGUS (monoclonal gammopathy of unknown significance) Mild episode of recurrent major depressive disorder Monoclonal (M) protein disease, multiple 'M' protein Nicotine addiction NSTEMI (non-ST elevated myocardial infarction) ([facility]) Peyronie's disease Secondary hyperparathyroidism Status post insertion of drug eluting coronary artery stent Hypoglycemia unawareness associated with type 2 diabetes mellitus ([facility]) GERD (gastroesophageal reflux disease) Diabetic retinopathy ([facility]) COVID-19 Pre-transplant evaluation for kidney and pancreas transplant PAD (peripheral artery disease) Allergies Allergies Allergen Reactions Ticagrelor Shortness of breath Medications Current Outpatient Medications Medication Instructions Accu-Chek Guide Me Glucose Mtr misc See admin instructions Accu-Chek Guide test strips strip USE TO TEST FOUR TIMES A DAY DIRECTED Accu-Chek Softclix Lancets misc USE TO TEST BLOOD SUGAR TWICE DAILY albuterol 90 mcg/actuation inhaler 2 puffs aluminum sulfate-calcium acetate ([place]) 952-1,347 mg packet 1,334 mg amLODIPine (NORVASC) 5 mg, oral, Daily aspirin 81 mg, Daily atorvastatin (LIPITOR) 80 mg, Daily azithromycin (Zithromax) 250 mg tablet TAKE 1 TABLET OR (more content not included)...[facility]02-26-2025 Evaluation note* Diagnosis Onset Date Resolution Status Admit Date ASHD (arteriosclerotic heart disease) acute October 14 12:55pm Chronic bronchitis, mucopurulent acu te October 14, 2024 12:55pm Chronic heart failure with preserved ejection fraction (HFpEF) acute October 14 12:55pm Contusion of right lower extremity acute October 14 12:55pm Primary hypertension acute Febr uary 2024 12:55pm Type 1 diabetes mellitus wit h hyperglycemia acute October 14 12:55pm ESRD (end stage renal diseas e) on dialysis deleted October 14 12:55pm Nicotine addiction deleted Februa ry 2024 12:55pm ESRD (end stage renal disease) acute November 01, 2024 10:56pm T wave inversion in EKG acute M arch 2024 10:56pm Uncontrolled hypertension acute November 01, 2024 10:56pm Acute hyperkalemia resolved November 01, 2024 10:56pm Hypertensive CKD, ESRD on dialysis resolved November 01, 2024 10:56pm Missed dialysis resolved October 10:56pm Secondary hyperparathyroidism resolv ed November 01, 2024 10:56pm Uremia resolved November 01 10:56pm Anemia in chronic kidney disease shade ctive November 01, 2024 10:56pm Type 1 diabetes mellitus wit h hyperglycemia inactive November 01, 2024 10:56pm ESRD (end stage renal diseas e) on dialysis deleted November 01, 2024 10:56pm [facility] Work Phone: 1(349) 633-738002-10-[address] Mason, external vessels are free of calcification, but both common iliacs have posterior calcifications.[facility] 09-17-2024 Consult note Author Crow Conte [facility] Note Date/Time September 17, 2024 3 :42pm [facility] [address] [place] [address] Pulmonology Consult Note Signed Patient: Yoel Werner MR#: [id number] : 1985 Acct:[id number] Age/Sex: 39 / M Adm Date: 5 Loc: Room: [address] [place] [address] Type: ADM IN Attending Dr: Toney Riley MD Copies to: MD Crow Henriquez MD Benjamin Ball,DO~ HPI Date/Time of Consultation: Date of Service: 09/17/2024 Time of Service: 10:45 Consulting Provider: Crow Conte Requesting Provider: Toney Riley Reason for Consult: COVID pneumonia History of Present Illness History of present illness: Mr. Werner is a 39 year old male with a history of type 1 diabetes, diastolicheart failure, hypertension, hyperlipidemia, end-stage renal disease on hemodialysis (MWF), coronary artery disease, and chronic anemia who presented tot emergency department with abdominal pain and difficulty urinating. He also reported a chronic cough. In the emergency department, chest x-ray showed focal left basilar atelectasis/infiltrate. Nasal swab positive for COVID. Patient wasfebrile and also found to be slightly hypoxic and was given hydromorphone, oxygen was applied, and he was admitted as inpatient. Pulmonology is being consulted for COVID pneumonia. Upon evaluation, patient is on room air. Patient states he has had a dry cough for the past 3 weeks which is not worsening. He denies any shortness of breath, fever, or chills currently. Patient states he is awaiting pancreas and kidney transplant. Review of Systems Review of Systems All other systems reviewed & are negative unless noted below or in HPI [facility] Medical History (Updated 09/16/24 @ 12:27 by Angel Mejía MD) Chronic heart failure with preserved ejection fraction (HFpEF) Type 1 diabetes mellitus with hyperglycemia Mitral regurgitation Wellness examination Hypertensive CKD, ESRD on dialysis Secondary hyperparathyroidism Dependence on renal dialysis Sat-Sat-Sat EBENEZER (generalized anxiety disorder) Mixed hyperlipidemia Monoclonal (M) protein disease, multiple 'M' protein Insomnia Cataract left eye-removed ASHD (arteriosclerotic heart disease) Echo: LVEF 60%, LVH, normal RV function but enlarged, RVSP elevated, severe MR - 08/2024 Primary hypertension Peyronie's disease Erectile dysfunction due to arterial insufficiency Chronic venous insufficiency Anemia in chronic kidney disease CAD (coronary artery disease) Diabetes mellitus Depression AV fistula left arm Asthmatic bronchitis , chronic PTSD (post-traumatic stress disorder) MGUS (monoclonal gammopathy of unknown significance) History of blood transfusion 2020 Diabetic retinopathy History of myocardial infarction 2021 Surgical History H/O heart artery stent (~02/2024) x5, 02/2024 - no intervention, History of bone marrow biopsy H/O eye surgery right and left repair retina Hx of knee surgery scope at age 17 Hx of vasectomy 7yrs ago Family History Mother Liver disease Diabetes Pancreatic cancer Father Diverticulitis Hypertension IBS (irritable bowel syndrome) Stroke Heart disease History of stroke Family history of mental disorder Social History Smoking Status: Former smoker Tobacco Type: cigarettes Substance Use Type: None Substance Abuse Comment: Has not used in a few months ; Medical card that in Sep 2023 Social History Comments: lives with dad Meds Medications and Allergies Allergies ticagrelor (From Brilinta) Allergy (Verified 09/15/24 18:56) shortness of breath Home Medications nitroglycerin 0.4 mg sublingual tablet 0.4 mg sublingual Q5MIN.X3 PRN Chest Pain30 days #25 tabs 11/17/21 [Rx Confirmed 09/16/24] aspirin 81 mg chewable tablet (Children's Aspirin) 81 mg PO QAM 09/10/22 [History Confirmed 09/16/24] isosorbide mononitrate 60 mg tablet,extended release 24 hr 60 mg PO BID 11/12/22[History Confirmed 09/16/24] calcium acetate 667 mg tablet 1,334 mg PO TID 11/13/23 [History Confirmed 09/16/24] insulin lispro 100 unit/mL subcutaneous pen (Humalog KwikPen (U-100) Insulin) 1 sliding scale dose subcut USEASDIRECTD 11/13/23 [History Confirmed 09/16/24] insulin glargine 100 unit/mL subcutaneous solution (Lantus U-100 Insulin) 20 unit subcut HS 11/26/23 [History Confirmed 09/16/24] 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 meter,continuous (FreeStyle Ramy 3 [place]) #1 ea 03/02/24 [Rx Confirmed 09/02/24] 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 meter,continuous (FreeStyle Ramy 3 [place]) #1 ea 03/19/24 [Rx Confirmed 09/02/24] omeprazole 40 mg capsule,delayed release See Rx Instructions .Route .COMPLEX #90caps 04/21/24 [Rx Confirmed 09/16/24] lisinopril 20 mg tablet 20 mg PO DAILY 30 days #30 tabs 04/29/24 [Rx Confirmed 09/16/24] 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 sensor (FreeStyle Ramy 3 Plus Sensor device) #1 ea 05/17/24 [Rx Confirmed 09/16/24] famotidine 20 mg tablet 40 mg PO QPM 06/22/24 [History Confirmed 09/16/24] carvedilol 25 mg tablet See Rx Instructions .Route .COMPLEX #180 tabs 07/21/24 [Rx Confirmed 09/16/24] sertraline 100 mg tablet See Rx Instructions .Route .COMPLEX #90 tabs 07/21/24 [Rx Confirmed 09/16/24] hydralazine 100 mg tablet 100 mg PO BID 30 days #60 tabs 08/07/24 [Rx Confirmed 09/16/24] amlodipine 2.5 mg tablet 10 mg PO DAILY 08/28/24 [History Confirmed 09/16/24] clopidogrel 75 mg tablet (Plavix) 75 mg PO DAILY 08/28/24 [History Confirmed 09/16/24] furosemide 80 mg tablet (Lasix) 80 mg PO BID@0800,1600 30 days #60 tabs 08/29/24[Rx Confirmed 09/16/24] acetaminophen 500 mg tablet 1,000 mg (2 x 500 mg) PO TID PRN pain 15 days #90 tabs 09/02/24 [Rx Confirmed 09/16/24] hydroxyzine HCl 25 mg tablet See Rx Instructions .Route .COMPLEX #90 tabs 09/02/24 [Rx Confirmed 09/16/24] atorvastatin 80 mg tablet 80 mg PO QAM 09/16/24 [History Confirmed 09/16/24] nirmatrelvir 300 mg (150 mg x2)-ritonavir 100 mg tablet,dose pack (Paxlovid) SeeRx Instructions PO .COMPLEX #10 tabs 09/17/24 [Rx Confirmed 09/17/24] Exam Physical Exam Vital Signs: Temp Pulse Resp BP Pulse Ox O2 Del Method O2 Flow Rate 97.5 F L 63 16 114/65 96 Room Air 2 09/17/24 10:00 09/17/24 10:00 09/17/24 10:09/17/24 10:09/17/24 10:09/17/24 10:09/16/24 21:38 Narrative: General: Weak, alert, in no respiratory distress. Neck: Supple. Pulmonary: Diminished breath sounds to both lung cavanaugh without wheezing. Cardiovascular: Regular rate and rhythm. No murmurs Abdomen: Soft, nontender and nondistended. Extremities: No lower extremity edema. Results - Pulmonology Intake and Output I&O - Last 24 Hours: Intake & Output 09/16/24 09/17/24 09/17/24 23:59 07:59 15:59 Intake Total 150 / 1200 300 / 300 Output Total 4500 / 4500 Balance -4350 / -3300 300 / 300 Weight 71.6 kg 72 kg Labs 09/17/24 05:29 09/17/24 05:29 Microbiology Micro: 09/15/24 22:03 Blood Culture - Preliminary Blood - Right Hand No Growth 1 Day 09/15/24 21:58 Blood Culture - Preliminary Blood - Right Antecubital No Growth 1 Day 09/15/24 23:44 SARS-CoV-2, Influenza & RSV (PCR) - Final Nasopharyngeal Assessment/Plan (1) COVID-19: (2) CAP (community acquired pneumonia): Plan White count is 2.3 today which is down from 2.9. Pending sputum and blood cultures. Continue ceftriaxone and azithromycin for now. Ordered crp level. Pending chest CT without contrast. It is unclear how long patient has been Covidpositive, but he was febrile in the emergency department, recommend Paxlovid with renal dosing. Continue DuoNebs and albuterol as needed. The patient was seen and examined with the medical student. I agree with her assessment, physical examination (performed independent by me), assessment and plan. Chest x-ray with questionable right lower lobe infiltrate but no signs or symptoms suggesting acute pneumonic process. Acute COVID infection with febrile illness and high risk patient with renal failure on hemodialysis but with good saturation on room air and relatively no significant dyspnea. Given the above I would hold off on remdesivir and dexamethasone, but would be reasonable to start the patient on Paxlovid given the above. He has no significant symptoms to suggest an acute pneumonic process. His CT scan of the chest was just completed and showed no focal infiltrate to suggest abacterial pneumonia either. I will discontinue antibiotics at this point. Documented By: Crow Conte MD 09/17/24 1049 Signed By: <Electronically signed by Crow Conte MD> 09/17/24 7107 [facility] Work Phone: 1(735) 835-377801-30-2025 [facility]iology [facility] Progress note Author Angel Mejía [facility] Note Date/Time September 17, 2024 1 1:12am [facility] [address] [place] [address] Nephrology Progress Note Signed Patient: Yoel Werner MR#: [id number] : 1985 Acct:[id number] Age/Sex: 39 / M Adm Date: 5 Loc: 3T Room: [address] [place] [address] Type: ADM IN Attending Dr: Toney Riley MD Copies to: ~ Date of Service: 09/17/2024 Subjective Subjective Narrative: This is a 39-year-old male well-known to me from outpatient [facility] unit was a presented emergency room for abdominal pain and nausea. Patient has a ESRD due to the diabetic nephropathy and hypertensive nephrosclerosis. He currently goes to the [place] [facility] 3 times a week on MWF schedule. He has a AV fistula as a dialysis access. He currently undergoing evaluation for pancreas kidney transplant and was seen at the [facility] yesterday. Patient on evaluation emergency room was tested positive for COVID. His chest x-ray showedfocal left basilar atelectasis or infiltrate. He had a CT scan which showed no bowel obstruction mild constipation. Nephrology is consulted for ESRD management during the hospital stay. Interim history Patient was seen and examined bedside he is still feeling weak and lethargic. He had a multiple bowel movements that the bowel regimen. He denies any chest pain palpation nausea vomiting. Still feels short of breath. Exam Physical Exam Vital Signs: Temp Pulse Resp BP Pulse Ox O2 Del Method O2 Flow Rate 97.5 F L 63 16 114/65 96 Room Air 2 09/17/24 10:09/17/24 10:09/17/24 10:09/17/24 10:09/17/24 10:09/17/24 10:09/16/24 21:38 Narrative: General: Appears comfortable and not in distress Heart: S1-S2, no rub Lung: Bilateral air entry, no wheezing or crackles Abdomen: Soft, positive bowel sounds Extremities: No edema, no cyanosis Head: Atraumatic, normocephalic Ear: No gross hearing Deficit or external ear redness Eyes: No pallor or redness Neck: No JVD or visible mass Skin: No rashes , warm to touch DROP FORGE HAND: Awake,Alert, following simple command Musculoskeletal: No swelling or limitation of movement of the large joints Psychiatric: Cooperative, normal mood and affect Objective Intake and Output I&O: Intake & Output 09/14/24 09/15/24 09/16/24 09/17/24 23:59 23:59 23:59 23:59 Intake Total 1200 / 1200 300 / 300 Output Total 4500 / 4500 Balance -3300 / -3300 300 / 300 Weight 72 kg 71.6 kg 72 kg Meds and Allergies Meds: Active Medications Acetaminophen (Acetaminophen 500 Mg Tablet) 1,000 mg PO Q6HR PRN PRN Reason: Pain Scale 1 - 3 or fever Stop: 09/16/25 02:16 Last Admin: 09/16/24 21:47 Dose: 1,000 mg Albuterol (Albuterol Neb 2.5 Mg/3 Ml Vial.Neb) 2.5 mg INHALATION Q3H PRN PRN Reason: Cough/Wheeze Stop: 09/16/25 02:16 Albuterol/Ipratropium (Ipratropium/Albuterol 0.5-3 Mg 3 Ml Ampul.Neb) 3 ml INHALATION QID.RESP RACHE[facility] Stop: 09/16/25 07:59 Last Admin: 09/17/24 09:30 Dose: Not Given Amlodipine Besylate (Amlodipine 10 Mg Tablet) 10 mg PO DAILY [facility] Stop: 09/16/25 10:29 Last Admin: 09/17/24 10:20 Dose: 10 mg Aspirin (Aspirin 81 Mg Tab.Chew) 81 mg PO QAM [facility] Stop: 09/16/25 08:59 Last Admin: 09/17/24 10:20 Dose: 81 mg Atorvastatin Calcium (Atorvastatin 80 Mg Tablet) 80 mg PO QPM [facility] Stop: 09/16/25 08:59 Last Admin: 09/16/24 21:46 Dose: 80 mg Azithromycin (Azithromycin 250 Mg Tablet) 250 mg PO Q24H [facility] Stop: 09/19/24 21:01 Last Admin: 09/16/24 21:46 Dose: 250 mg Calcium Acetate (Calcium Acetate 667 Mg Capsule) 1,334 mg PO TID.WITH.MEALS RACHELL Stop: 09/16/25 07:59 Last Admin: 09/17/24 10:19 Dose: Not Given Carvedilol (Carvedilol 25 Mg Tablet) 25 mg PO BID [facility] Stop: 09/16/25 08:59 Last Admin: 09/17/24 10:19 Dose: 25 mg Clopidogrel Bisulfate (Clopidogrel Bisulfate 75 Mg Tablet) 75 mg PO DAILY [facility] Stop: 09/16/25 08:59 Last Admin: 09/17/24 10:19 Dose: 75 mg Dextrose (Dextrose 50% In Water 25 Gm/50 Ml Syringe) 0 gm IV-PUSH PRN PRN PRN Reason: Hypoglycemia Stop: 09/16/25 02:16 Last Admin: 09/17/24 04:09 Dose: 50 gm Epoetin Alexus (Epoetin Alexus (Esrd Use) 20,000 Unit/Ml Vial) 11,000 unit IV-PUSH MoWeFr@1000 RACHELL; Protocol Stop: 09/16/25 09:59 Last Admin: 09/16/24 11:59 Dose: 11,000 unit Famotidine (Famotidine 20 Mg Tablet) 40 mg PO QPM [facility] Stop: 09/16/25 20:59 Last Admin: 09/16/24 21:46 Dose: 40 mg Furosemide (Furosemide 80 Mg Tablet) 80 mg PO BID@0800,1600 [facility] Stop: 09/16/25 07:59 Last Admin: 09/17/24 10:19 Dose: 80 mg Glucose (Dextrose 40% Gel 15 Gm Tube) 0 gm PO PRN PRN PRN Reason: Hypoglycemia Stop: 09/16/25 02:16 Guaifenesin (Guaifenesin Syrup 10 Ml Udc) 20 ml PO Q6H PRN PRN Reason: Cough Stop: 09/16/25 02:16 Heparin Sodium (Porcine) (Heparin 10,000 Unit/10 Ml Vial) 2,000 unit IV PRN PRN PRN Reason: Dialysis Stop: 09/16/25 09:22 Last Admin: 09/16/24 12:01 Dose: 2,000 unit Hydralazine HCl (Hydralazine 50 Mg Tablet) 100 mg PO BID [facility] Stop: 09/16/25 08:59 Last Admin: 09/17/24 10:19 Dose: 100 mg Hydroxyzine Pamoate (Hydroxyzine Pamoate 25 Mg Capsule) 25 - 50 mg PO HS [facility] Stop: 09/16/25 21:59 Last Admin: 09/16/24 21:47 Dose: 50 mg Ceftriaxone Sodium (Rocephin) 1 gm in 50 mls @ 100 mls/hr IV Q24H [facility] Last Infusion: 09/17/24 00:32 Dose: Infused Sodium Chloride (0.9% Sodium Chloride 1,000 Ml) 1,000 mls @ 0 mls/hr MISCELLANE.Q0M PRN PRN Reason: Dialysis Stop: 09/16/25 09:22 Last Infusion: 09/16/24 12:02 Dose: Infused Insulin Aspart (Insulin Aspart 300 Units/3 Ml) 0 units SUBCUT TID.[facility]; Protocol Stop: 09/16/25 07:59 Last Admin: 09/17/24 10:20 Dose: Not Given Insulin Glargine (Insulin Glargine 300 Units/3 Ml Insuln.Pen) 10 units SUBCUT [facility] Stop: 09/17/25 21:59 Isosorbide Mononitrate (Isosorbide Mononitrate 24hr Er 60 Mg Tab.Er.24h) 60 mg PO BID [facility] Stop: 09/16/25 08:59 Last Admin: 09/17/24 10:19 Dose: 60 mg Lisinopril (Lisinopril 20 Mg Tablet) 20 mg PO DAILY [facility] Stop: 09/16/25 08:59 Last Admin: 09/17/24 10:19 Dose: 20 mg Melatonin (Melatonin 5 Mg Tablet) 5 mg PO QHS PRN PRN Reason: Insomnia Stop: 09/16/25 02:16 Last Admin: 09/16/24 21:46 Dose: 5 mg Nitroglycerin (Nitroglycerin 0.4 Mg Tab.Subl) 0.4 mg SUBLINGUAL Q5MIN.X3 PRN PRN Reason: Chest Pain Stop: 09/16/25 03:20 Ondansetron HCl (Ondansetron 4 Mg/2 Ml Vial) 4 mg IV-PUSH Q6H PRN PRN Reason: Nausea And Vomiting Stop: 09/16/25 02:16 Last Admin: 09/16/24 21:46 Dose: 4 mg Pantoprazole Sodium (Pantoprazole 40 Mg Tablet.Dr) 40 mg PO BID [facility] Stop: 09/16/25 08:59 Last Admin: 09/17/24 10:18 Dose: 40 mg Paricalcitol (Paricalcitol 10 Mcg/2 Ml Vial) 5 mcg IV-PUSH MoWeFr@1000 [facility] Stop: 09/16/25 09:59 Last Admin: 09/16/24 12:00 Dose: 5 mcg Sennosides (Sennosides 8.6 Mg Tablet) 8.6 mg PO BID [facility] Stop: 09/16/25 08:59 Last Admin: 09/17/24 10:19 Dose: 8.6 mg Sertraline HCl (Sertraline 100 Mg Tablet) 100 mg PO DAILY [facility] Stop: 09/16/25 08:59 Last Admin: 09/17/24 10:20 Dose: 100 mg Sodium Chloride (Sodium Chloride 0.9 % 10 Ml Syringe) 0 ml IV-PUSH PRN PRN PRN Reason: Flush Stop: 09/15/25 18:55 Last Admin: 09/17/24 04:10 Dose: 10 ml Sodium Chloride (Sodium Chloride 0.9 % 10 Ml Syringe) 0 ml IV-PUSH PRN PRN PRN Reason: Flush Stop: 09/16/25 09:22 Last Admin: 09/16/24 12:00 Dose: 10 ml Allergies ticagrelor (From Brilinta) Allergy (Verified 09/15/24 18:56) shortness of breath Results - Nephrology Labs 09/17/24 05:29 09/17/24 05:29 Labs: 09/17/24 05:29 BUN 33 H Creatinine 5.04 H D Radiology Impressions Impressions - last 24 hours: Any impression(s) listed above is documentation that was entered by the reading physician into a diagnostic report(s) for Yoel Werner. I have reviewed the report(s) and am incorporating any findings in the treatment plan of this patient where applicable. A&P - Nephrology Assessment/Plan (1) COVID-19: Assessment/Problem Details: Patient currently has COVID-19 infection. He may benefit with remdesivir due tohis medical comorbidities including ESRD and diabetes. (2) ESRD on hemodialysis: Assessment/Problem Details: He has ESRD due to the diabetic nephropathy and hypertensive nephrosclerosis. (3) Hypertensive CKD, ESRD on dialysis: Assessment/Problem Details: Blood pressure is high due to the hypervolemia. (4) Anemia of renal disease: Assessment/Problem Details: Hemoglobin is below the goal. He receives Procrit with dialysis. (5) Secondary hyperparathyroidism: Assessment/Problem Details: He has a second hyperparathyroidism due to the hyperphosphatemia and ESRD. Currently takes calcium acetate with meals and also receives IV Zemplar Plan * No need for dialysis today. Next dialysis will be tomorrow as per schedule. * Will consult pulmonary for evaluation of remdesivir and also get the CT chest. * Will continue outpatient dose of the Procrit 3 times a week. * Will continue outpatient dose of the IV Zemplar 3 times a week with dialysis and oral calcium acetate with meals * Continue home dose of the antihypertensive medications. * Continue DM management as per the primary hospitalist team. * Documented By: Angel Mejía MD 09/17/24 1111 Signed By: <Electronically signed by Angel Mejía MD> 09/17/24 1112 [facility] Work Phone: [phone] Consult note Author Angel Mejía [facility] Note Date/Time September 16, 2024 1 2:40pm [facility] [address] [place] [address] Nephrology Consult Note Signed Patient: Yoel Werner MR#: [id number] : 1985 Acct:[id number] Age/Sex: 39 / M Adm Date: 5 Loc: Room: [address] [place] [address] Type: ADM IN Attending Dr: Enrique Kirby DO Copies to: MD Eusebio Castellano DO Neal R Majumdar, DO~ Providers Consult Date: 09/16/24 Requesting Provider: Enrique Kirby DO Primary Care Provider: Eusebio Olivares DO HPI Reason for Consult: ESRD management History of Present Illness: This is a 39-year-old male well-known to me from outpatient [place] dialysis unit was a presented emergency room for abdominal pain and nausea. Patient has a ESRD due to the diabetic nephropathy and hypertensive nephrosclerosis. He currently goes to the [place] dialysis 3 times a week on MWF schedule. He has a AV fistula as a dialysis access. He currently undergoing evaluation for pancreas kidney transplant and was seen at the [facility] yesterday. Patient on evaluation emergency room was tested positive for COVID. His chest x-ray showedfocal left basilar atelectasis or infiltrate. He had a CT scan which showed no bowel obstruction mild constipation. Nephrology is consulted for ESRD management during the hospital stay. Patient was seen examined bedside during hemodialysis. Review of Systems Review of Systems All other systems reviewed & are negative unless noted below or in HPI Review of systems: Cardiovascular: denies any chest pain, palpitation Pulmonary: denies any cough, hemoptysis Gastrointestinal: denies any nausea, vomiting, diarrhea Neurological :denies any headache, numbness, weakness Endocrine: denies any polyuria, polydipsia Dermatological: denies any itching or rash [facility] Medical History (Updated 09/16/24 @ 12:27 by Angel Mejía MD) Chronic heart failure with preserved ejection fraction (HFpEF) Type 1 diabetes mellitus with hyperglycemia Mitral regurgitation Wellness examination Hypertensive CKD, ESRD on dialysis Secondary hyperparathyroidism Dependence on renal dialysis Sat-Sat-Sat EBENEZER (generalized anxiety disorder) Mixed hyperlipidemia Monoclonal (M) protein disease, multiple 'M' protein Insomnia Cataract left eye-removed ASHD (arteriosclerotic heart disease) Echo: LVEF 60%, LVH, normal RV function but enlarged, RVSP elevated, severe MR - 08/2024 Primary hypertension Peyronie's disease Erectile dysfunction due to arterial insufficiency Chronic venous insufficiency Anemia in chronic kidney disease CAD (coronary artery disease) Diabetes mellitus Depression AV fistula left arm Asthmatic bronchitis , chronic PTSD (post-traumatic stress disorder) MGUS (monoclonal gammopathy of unknown significance) History of blood transfusion 2020 Diabetic retinopathy History of myocardial infarction 2021 Surgical History H/O heart artery stent (~02/2024) x5, 02/2024 - no intervention, History of bone marrow biopsy H/O eye surgery right and left repair retina Hx of knee surgery scope at age 17 Hx of vasectomy 7yrs ago Family History Mother Liver disease Diabetes Pancreatic cancer Father Diverticulitis Hypertension IBS (irritable bowel syndrome) Stroke Heart disease History of stroke Family history of mental disorder Social History Smoking Status: Former smoker Tobacco Type: cigarettes Substance Use Type: None Substance Abuse Comment: Has not used in a few months ; Medical card that in Sep 2023 Social History Comments: lives with dad Meds Medications & Allergies Allergies ticagrelor (From Brilinta) Allergy (Verified 09/15/24 18:56) shortness of breath Home Medications nitroglycerin 0.4 mg sublingual tablet 0.4 mg sublingual Q5MIN.X3 PRN Chest Pain30 days #25 tabs 11/17/21 [Rx Confirmed 09/16/24] aspirin 81 mg chewable tablet (Children's Aspirin) 81 mg PO QAM 09/10/22 [History Confirmed 09/16/24] isosorbide mononitrate 60 mg tablet,extended release 24 hr 60 mg PO BID 11/12/22[History Confirmed 09/16/24] calcium acetate 667 mg tablet 1,334 mg PO TID 11/13/23 [History Confirmed 09/16/24] insulin lispro 100 unit/mL subcutaneous pen (Humalog KwikPen (U-100) Insulin) 1 sliding scale dose subcut USEASDIRECTD 11/13/23 [History Confirmed 09/16/24] insulin glargine 100 unit/mL subcutaneous solution (Lantus U-100 Insulin) 20 unit subcut HS 11/26/23 [History Confirmed 09/16/24] 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 meter,continuous (FreeStyle Ramy 3 [place]) #1 ea 03/02/24 [Rx Confirmed 09/02/24] 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 meter,continuous (FreeStyle Ramy 3 [place]) #1 ea 03/19/24 [Rx Confirmed 09/02/24] omeprazole 40 mg capsule,delayed release See Rx Instructions .Route .COMPLEX #90caps 04/21/24 [Rx Confirmed 09/16/24] lisinopril 20 mg tablet 20 mg PO DAILY 30 days #30 tabs 04/29/24 [Rx Confirmed 09/16/24] 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 sensor (FreeStyle Ramy 3 Plus Sensor device) #1 ea 05/17/24 [Rx Confirmed 09/02/24] famotidine 20 mg tablet 40 mg PO QPM 06/22/24 [History Confirmed 09/16/24] carvedilol 25 mg tablet See Rx Instructions .Route .COMPLEX #180 tabs 07/21/24 [Rx Confirmed 09/16/24] sertraline 100 mg tablet See Rx Instructions .Route .COMPLEX #90 tabs 07/21/24 [Rx Confirmed 09/16/24] hydralazine 100 mg tablet 100 mg PO BID 30 days #60 tabs 08/07/24 [Rx Confirmed 09/16/24] amlodipine 2.5 mg tablet 10 mg PO DAILY 08/28/24 [History Confirmed 09/16/24] clopidogrel 75 mg tablet (Plavix) 75 mg PO DAILY 08/28/24 [History Confirmed 09/16/24] azithromycin 250 mg tablet 250 mg PO Q24H 3 days #3 tabs 08/29/24 [Rx Confirmed 09/02/24] furosemide 80 mg tablet (Lasix) 80 mg PO BID@0800,1600 30 days #60 tabs 08/29/24[Rx Confirmed 09/16/24] acetaminophen 500 mg tablet 1,000 mg (2 x 500 mg) PO TID PRN pain 15 days #90 tabs 09/02/24 [Rx Confirmed 09/16/24] hydroxyzine HCl 25 mg tablet See Rx Instructions .Route .COMPLEX #90 tabs 09/02/24 [Rx Confirmed 09/16/24] atorvastatin 80 mg tablet 80 mg PO QAM 09/16/24 [History Confirmed 09/16/24] Active Medications: Active Medications Acetaminophen (Acetaminophen 500 Mg Tablet) 1,000 mg PO Q6HR PRN PRN Reason: Pain Scale 1 - 3 or fever Stop: 09/16/25 02:16 Last Admin: 09/16/24 08:35 Dose: 500 mg Albuterol (Albuterol Neb 2.5 Mg/3 Ml Vial.Neb) 2.5 mg INHALATION Q3H PRN PRN Reason: Cough/Wheeze Stop: 09/16/25 02:16 Albuterol/Ipratropium (Ipratropium/Albuterol 0.5-3 Mg 3 Ml Ampul.Neb) 3 ml INHALATION QID.RESP [facility] Stop: 09/16/25 07:59 Last Admin: 09/16/24 09:44 Dose: 3 ml Amlodipine Besylate (Amlodipine 10 Mg Tablet) 10 mg PO DAILY [facility] Stop: 09/16/25 10:29 Last Admin: 09/16/24 10:53 Dose: 10 mg Aspirin (Aspirin 81 Mg Tab.Chew) 81 mg PO QAM [facility] Stop: 09/16/25 08:59 Last Admin: 09/16/24 10:50 Dose: 81 mg Atorvastatin Calcium (Atorvastatin 80 Mg Tablet) 80 mg PO QPM [facility] Stop: 09/16/25 08:59 Azithromycin (Azithromycin 250 Mg Tablet) 250 mg PO Q24H [facility] Stop: 09/19/24 21:01 Calcium Acetate (Calcium Acetate 667 Mg Capsule) 1,334 mg PO TID.WITH.MEALS [facility] Stop: 09/16/25 07:59 Last Admin: 09/16/24 10:52 Dose: 1,334 mg Carvedilol (Carvedilol 25 Mg Tablet) 25 mg PO BID [facility] Stop: 09/16/25 08:59 Last Admin: 09/16/24 10:50 Dose: 25 mg Clopidogrel Bisulfate (Clopidogrel Bisulfate 75 Mg Tablet) 75 mg PO DAILY [facility] Stop: 09/16/25 08:59 Last Admin: 09/16/24 10:53 Dose: 75 mg Dextrose (Dextrose 50% In Water 25 Gm/50 Ml Syringe) 0 gm IV-PUSH PRN PRN PRN Reason: Hypoglycemia Stop: 09/16/25 02:16 Epoetin Alexus (Epoetin Alexus (Esrd Use) 20,000 Unit/Ml Vial) 11,000 unit IV-PUSH MoWeFr@1000 [facility]; Protocol Stop: 09/16/25 09:59 Famotidine (Famotidine 20 Mg Tablet) 40 mg PO QPM [facility] Stop: 09/16/25 20:59 Furosemide (Furosemide 80 Mg Tablet) 80 mg PO BID@0800,1600 [facility] Stop: 09/16/25 07:59 Last Admin: 09/16/24 10:51 Dose: 80 mg Glucose (Dextrose 40% Gel 15 Gm Tube) 0 gm PO PRN PRN PRN Reason: Hypoglycemia Stop: 09/16/25 02:16 Guaifenesin (Guaifenesin Syrup 10 Ml Udc) 20 ml PO Q6H PRN PRN Reason: Cough Stop: 09/16/25 02:16 Heparin Sodium (Porcine) (Heparin 10,000 Unit/10 Ml Vial) 2,000 unit IV PRN PRN PRN Reason: Dialysis Stop: 09/16/25 09:22 Hydralazine HCl (Hydralazine 50 Mg Tablet) 100 mg PO BID [facility] Stop: 09/16/25 08:59 Last Admin: 09/16/24 10:52 Dose: 100 mg Hydroxyzine Pamoate (Hydroxyzine Pamoate 25 Mg Capsule) 25 - 50 mg PO HS [facility] Stop: 09/16/25 21:59 Ceftriaxone Sodium (Rocephin) 1 gm in 50 mls @ 100 mls/hr IV Q24H [facility] Sodium Chloride (0.9% Sodium Chloride 1,000 Ml) 1,000 mls @ 0 mls/hr MISCELLANE.Q0M PRN PRN Reason: Dialysis Stop: 09/16/25 09:22 Insulin Aspart (Insulin Aspart 300 Units/3 Ml) 0 units SUBCUT TID.[facility]; Protocol Stop: 09/16/25 07:59 Last Admin: 09/16/24 09:30 Dose: Not Given Insulin Glargine (Insulin Glargine 300 Units/3 Ml Insuln.Pen) 20 units SUBCUT [facility] Stop: 09/16/25 21:59 Isosorbide Mononitrate (Isosorbide Mononitrate 24hr Er 60 Mg Tab.Er.24h) 60 mg PO BID [facility] Stop: 09/16/25 08:59 Last Admin: 09/16/24 10:52 Dose: 60 mg Lisinopril (Lisinopril 20 Mg Tablet) 20 mg PO DAILY [facility] Stop: 09/16/25 08:59 Last Admin: 09/16/24 10:51 Dose: 20 mg Melatonin (Melatonin 5 Mg Tablet) 5 mg PO QHS PRN PRN Reason: Insomnia Stop: 09/16/25 02:16 Nitroglycerin (Nitroglycerin 0.4 Mg Tab.Subl) 0.4 mg SUBLINGUAL Q5MIN.X3 PRN PRN Reason: Chest Pain Stop: 09/16/25 03:20 Ondansetron HCl (Ondansetron 4 Mg/2 Ml Vial) 4 mg IV-PUSH Q6H PRN PRN Reason: Nausea And Vomiting Stop: 09/16/25 02:16 Pantoprazole Sodium (Pantoprazole 40 Mg Tablet.Dr) 40 mg PO BID [facility] Stop: 09/16/25 08:59 Last Admin: 09/16/24 10:51 Dose: 40 mg Paricalcitol (Paricalcitol 10 Mcg/2 Ml Vial) 5 mcg IV-PUSH MoWeFr@1000 [facility] Stop: 09/16/25 09:59 Sennosides (Sennosides 8.6 Mg Tablet) 8.6 mg PO BID [facility] Stop: 09/16/25 08:59 Last Admin: 09/16/24 10:53 Dose: 8.6 mg Sertraline HCl (Sertraline 100 Mg Tablet) 100 mg PO DAILY [facility] Stop: 09/16/25 08:59 Last Admin: 09/16/24 10:55 Dose: 100 mg Sodium Chloride (Sodium Chloride 0.9 % 10 Ml Syringe) 0 ml IV-PUSH PRN PRN PRN Reason: Flush Stop: 09/15/25 18:55 Sodium Chloride (Sodium Chloride 0.9 % 10 Ml Syringe) 0 ml IV-PUSH PRN PRN PRN Reason: Flush Stop: 09/16/25 09:22 Exam Physical Exam Vital Signs: Temp Pulse Resp BP Pulse Ox O2 Del Method O2 Flow Rate 100.1 F H 78 18 205/96 H 99 Room Air 2 09/15/24 18:53 09/16/24 09:44 09/16/24 09:44 09/16/24 08:43 09/16/24 08:43 09/16/24 08:43 09/16/24 08:00 Narrative: General: Appears comfortable and not in distress Heart: S1-S2, no rub Lung: Bilateral air entry, no wheezing or crackles Abdomen: Soft, positive bowel sounds Extremities: No edema, no cyanosis Head: Atraumatic, normocephalic Ear: No gross hearing Deficit or external ear redness Eyes: No pallor or redness Neck: No JVD or visible mass Skin: No rashes , warm to touch DROP FORGE HAND: Awake,Alert, following simple command Musculoskeletal: No swelling or limitation of movement of the large joints Psychiatric: Cooperative, normal mood and affect Results - Nephrology Labs 09/16/24 04:45 09/16/24 04:52 Labs: 09/15/24 09/16/24 09/16/24 21:34 04:52 08:39 BUN 49 H 52 H Creatinine 6.29 H 6.71 H Albumin 4.0 Urine Color Yellow Urine Appearance Cloudy A Urine pH >= 9.0 Ur Specific [place] 1.012 Urine Protein 300 H Urine Glucose (UA) 250 H Urine Ketones Negative Urine Occult Blood 1+ H Urine Nitrite Negative Ur Leukocyte Esterase Negative Urine RBC 10-19 H Urine WBC 1-2 Urine Bacteria None seen Radiology Impressions Impressions - last 24 hours: Impressions Chest X-Ray 09/15/24 21:30 IMPRESSION: Focal left basilar atelectasis/infiltrate Impression dictated by: Alec Flynn M.D.09/15/2024 10:19 PM Dictation Location: [facility]20 Abdomen/Pelvis CT 09/15/24 22:55 IMPRESSION: No bowel obstruction. Mild constipation. Impression dictated by: Alec Flynn M.D.09/15/2024 11:16 PM Dictation Location: [facility] Any impression(s) listed above is documentation that was entered by the reading physician into a diagnostic report(s) for Yoel Martinez Debbi. I have reviewed the report(s) and am incorporating any findings in the treatment plan of this patient where applicable. A&P - Nephrology Assessment/Plan (1) COVID-19: Assessment/Problem Details: Patient currently has COVID-19 infection. He may benefit with remdesivir due tohis medical comorbidities including ESRD and diabetes. (2) ESRD on hemodialysis: Assessment/Problem Details: He has ESRD due to the diabetic nephropathy and hypertensive nephrosclerosis. (3) Hypertensive CKD, ESRD on dialysis: Assessment/Problem Details: Blood pressure is high due to the hypervolemia. (4) Anemia of renal disease: Assessment/Problem Details: Hemoglobin is below the goal. He receives Procrit with dialysis. (5) Secondary hyperparathyroidism: Assessment/Problem Details: He has a second hyperparathyroidism due to the hyperphosphatemia and ESRD. Currently takes calcium acetate with meals and also receives IV Zemplar Plan * Hemodialysis today as ordered * Will consult ID for evaluation of remdesivir. * Will continue outpatient dose of the Procrit 3 times a week. * Will continue outpatient dose of the IV Zemplar 3 times a week with dialysis and oral calcium acetate with meals * Continue home dose of the antihypertensive medications. * Continue DM management as per the primary hospitalist team. * Thanks for consult. Will continue follow-up with you. Please feel free to call us with any question. Documented By: Angel Mejía MD 09/16/24 7385 Signed By: <Electronically signed by Angel Mejía MD> 09/16/24 4983 [facility] Work Phone: [phone] [place] [address] Nephrology Consult Note Signed Patient: Yoel Werner MR#: [id number] : 1985 Acct:[id number] Age/Sex: 39 / M Adm Date: 5 Loc: Room: 9X9656-5 Type: ADM IN Attending Dr: Enrique Kirby DO Copies to: MD Eusebio Castellano DO Neal R Majumdar, DO~ Providers Consult Date: 09/16/24 Requesting Provider: Enrique Kirby DO Primary Care Provider: Eusebio Olivares DO HPI Reason for Consult: ESRD management History of Present Illness: This is a 39-year-old male well-known to me from outpatient [place] dialysis unit was a presented emergency room for abdominal pain and nausea. Patient has a ESRD due to the diabetic nephropathy andhypertensive nephrosclerosis. He currently goes to the [place] dialysis 3 times a week on MWF schedule. He has a AV fistula as a dialysis access. He currently undergoing evaluation for pancreas kidney transplant and was seen at the [facility] yesterday. Patient on evaluation emergency room was tested positive for COVID. His chest x-ray showedfocal left basilar atelectasis or infiltrate. He had a CT scan which showed no bowel obstruction mild constipation. Nephrology is consulted for ESRD management d uring the hospital stay. Patient was seen examined bedside during hemodialysis. Review of Systems Review of Systems All other systems reviewed & are negative unless noted below or in HPI Review of systems: Cardiovascular: denies any chest pain, palpitation Pulmonary: denies any cough, hemoptysis Gastrointestinal: denies any nausea, vomiting, diarrhea Neurological :denies any headache, numbness, weakness Endocrine: denies any polyuria, polydipsia Dermatological: denies any itching or rash [facility] Medical History (Updated 09/16/24 @ 12:27 by Angel Mejía MD) Chronic heart failure with preserved ejection fraction (HFpEF) Type 1 diabetes mellitus with hyperglycemia Mitral regurgitation Wellness examination Hypertensive CKD, ESRD on dialysis Secondary hyperparathyroidism Dependence on renal dialysis Mon-Sat-Sat EBENEZER (generalized anxiety disorder) Mixed hyperlipidemia Monoclonal (M) protein disease, multiple 'M' protein Insomnia Cataract left eye-removed ASHD (arteriosclerotic heart disease) Echo: LVEF 60%, LVH, normal RV function but enlarged, RVSP elevated, severe MR - 08/2024 Primary hypertension Peyronie's disease Erectile dysfunction due to arterial insufficiency Chronic venous insufficiency Anemia in chronic kidney disease CAD (coronary artery disease) Diabetes mellitus Depression AV fistula left arm Asthmatic bronchitis , chronic PTSD (post-traumatic stress disorder) MGUS (monoclonal gammopathy of unknown significance) History of blood transfusion 2020 Diabetic retinopathy History of myocardial infarction 2021 Surgical History H/O heart artery stent (~02/2024) x5, 02/2024 - no intervention, History of bone marrow biopsy H/O eye surgery right and left repair retina Hx of knee surgery scope at age 17 Hx of vasectomy 7yrs ago Family History Mother Liver disease Diabetes Pancreatic cancer Father Diverticulitis Hypertension IBS (irritable bowel syndrome) Stroke Heart disease History of stroke Family history of mental disorder Social History Smoking Status: Former smoker Tobacco Type: cigarettes Substance Use Type: None Substance Abuse Comment: Has not used in a few months ; Medical card that in Sep 2023 Social History Comments: lives with dad [place] Medications & Allergies Allergies ticagrelor (From Brilinta) Allergy (Verified 09/15/24 18:56) shortness of breath Home Medications nitroglycerin 0.4 mg sublingual tablet 0.4 mg sublingual Q5MIN.X3 PRN Chest Pain30 days #25 tabs 11/17/21 [Rx Confirmed 09/16/24] aspirin 81 mg chewable tablet (Children's Aspirin) 81 mg PO QAM 09/10/22 [History Confirmed 09/16/24] isosorbide mononitrate 60 mg tablet,extended release 24 hr 60 mg PO BID 11/12/22[History Confirmed 09/16/24] calcium acetate 667 mg tablet 1,334 mg PO TID 11/13/23 [History Confirmed 09/16/24] insulin lispro 100 unit/mL subcutaneous pen (Humalog KwikPen (U-100) Insulin) 1 sliding scale dose subcut USEASDIRECTD 11/13/23 [History Confirmed 09/16/24] insulin glargine 100 unit/mL subcutaneous solution (Lantus U-100 Insulin) 20 unit subcut HS 04/09/24 [History Confirmed 09/16/24] 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 meter,continuous (FreeStyle Ramy 3 Tornillo) #1 ea 03/02/24 [Rx Confirmed 09/02/24] 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 meter,continuous (FreeStyle Ramy 3 [place]) #1 ea 03/19/24 [Rx Confirmed 09/02/24] omeprazole 40 mg capsule,delayed release See Rx Instructions .Route .COMPLEX #90caps 04/21/24 [Rx Confirmed 09/16/24] lisinopril 20 mg tablet 20 mg PO DAILY 30 days #30 tabs 04/29/24 [Rx Confirmed 09/16/24] 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 sensor (FreeStyle Ramy 3 Plus Sensor device) #1 ea 05/17/24 [Rx Confirmed 09/02/24] famotidine 20 mg tablet 40 mg PO QPM 06/22/24 [History Confirmed 09/16/24] carvedilol 25 mg tablet See Rx Instructions .Route .COMPLEX #180 tabs 07/21/24 [Rx Confirmed 09/16/24] sertraline 100 mg tablet See Rx Instructions .Route .COMPLEX #90 tabs 07/21/24 [Rx Confirmed 09/16/24] hydralazine 100 mg tablet 100 mg PO BID 30 days #60 tabs 08/07/24 [Rx Confirmed 09/16/24] amlodipine 2.5 mg tablet 10 mg PO DAILY 08/28/24 [History Confirmed 09/16/24] clopidogrel 75 mg tablet (Plavix) 75 mg PO DAILY 08/28/24 [History Confirmed 09/16/24] azithromycin 250 mg tablet 250 mg PO Q24H 3 days #3 tabs 08/29/24 [Rx Confirmed 09/02/24] furosemide 80 mg tablet (Lasix) 80 mg PO BID@0800,1600 30 days #60 tabs 08/29/24[Rx Confirmed 09/16/24] acetaminophen 500 mg tablet 1,000 mg (2 x 500 mg) PO TID PRN pain 15 days #90 tabs 09/02/24 [Rx Confirmed 09/16/24] hydroxyzine HCl 25 mg tablet See Rx Instructions .Route .COMPLEX #90 tabs 09/02/24 [Rx Confirmed 09/16/24] atorvastatin 80 mg tablet 80 mg PO QAM 09/16/24 [History Confirmed 01/29/25] Active Medications: Active Medications Acetaminophen (Acetaminophen 500 Mg Tablet) 1,000 mg PO Q6HR PRN PRN Reason: Pain Scale 1 - 3 or fever Stop: 09/16/25 02:16 Last Admin: 09/16/24 08:35 Dose: 500 mg Albuterol (Albuterol Neb 2.5 Mg/3 Ml Vial.Neb) 2.5 mg INHALATION Q3H PRN PRN Reason: Cough/Wheeze Stop: 09/16/25 02:16 Albuterol/Ipratropium (Ipratropium/Albuterol 0.5-3 Mg 3 Ml Ampul.Neb) 3 ml INHALATION QID.RESP [facility] Stop: 09/16/25 07:59 Last Admin: 09/16/24 09:44 Dose: 3 ml Amlodipine Besylate (Amlodipine 10 Mg Tablet) 10 mg PO DAILY [facility] Stop: 09/16/25 10:29 Last Admin: 09/16/24 10:53 Dose: 10 mg Aspirin (Aspirin 81 Mg Tab.Chew) 81 mg PO QAM [facility] Stop: 09/16/25 08:59 Last Admin: 09/16/24 10:50 Dose: 81 mg Atorvastatin Calcium (Atorvastatin 80 Mg Tablet) 80 mg PO QPM [facility] Stop: 09/16/25 08:59 Azithromycin (Azithromycin 250 Mg Tablet) 250 mg PO Q24H [facility] Stop: 09/19/24 21:01 Calcium Acetate (Calcium Acetate 667 Mg Capsule) 1,334 mg PO TID.WITH.MEALS [facility] Stop: 09/16/25 07:59 Last Admin: 09/16/24 10:52 Dose: 1,334 mg Carvedilol (Carvedilol 25 Mg Tablet) 25 mg PO BID [facility] Stop: 09/16/25 08:59 Last Admin: 09/16/24 10:50 Dose: 25 mg Clopidogrel Bisulfate (Clopidogrel Bisulfate 75 Mg Tablet) 75 mg PO DAILY [facility] Stop: 09/16/25 08:59 Last Admin: 09/16/24 10:53 Dose: 75 mg Dextrose (Dextrose 50% In Water 25 Gm/50 Ml Syringe) 0 gm IV-PUSH PRN PRN PRN Reason: Hypoglycemia Stop: 09/16/25 02:16 Epoetin Alexus (Epoetin Alexus (Esrd Use) 20,000 Unit/Ml Vial) 11,000 unit IV-PUSH MoWeFr@1000 [facility]; Protocol Stop: 09/16/25 09:59 Famotidine (Famotidine 20 Mg Tablet) 40 mg PO QPM [facility] Stop: 09/16/25 20:59 Furosemide (Furosemide 80 Mg Tablet) 80 mg PO BID@0800,1600 [facility] Stop: 09/16/25 07:59 Last Admin: 09/16/24 10:51 Dose: 80 mg Glucose (Dextrose 40% Gel 15 Gm Tube) 0 gm PO PRN PRN PRN Reason: Hypoglycemia Stop: 09/16/25 02:16 Guaifenesin (Guaifenesin Syrup 10 Ml Udc) 20 ml PO Q6H PRN PRN Reason: Cough Stop: 09/16/25 02:16 Heparin Sodium (Porcine) (Heparin 10,000 Unit/10 Ml Vial) 2,000 unit IV PRN PRN PRN Reason: Dialysis Stop: 09/16/25 09:22 Hydralazine HCl (Hydralazine 50 Mg Tablet) 100 mg PO BID [facility] Stop: 09/16/25 08:59 Last Admin: 09/16/24 10:52 Dose: 100 mg Hydroxyzine Pamoate (Hydroxyzine Pamoate 25 Mg Capsule) 25 - 50 mg PO [facility] Stop: 09/16/25 21:59 Ceftriaxone Sodium (Rocephin) 1 gm in 50 mls @ 100 mls/hr IV Q24H [facility] Sodium Chloride (0.9% Sodium Chloride 1,000 Ml) 1,000 mls @ 0 mls/hr MISCELLANE.Q0M PRN PRN Reason: Dialysis Stop: 09/16/25 09:22 Insulin Aspart (Insulin Aspart 300 Units/3 Ml) 0 units SUBCUT TID.WM.[facility]; Protocol Stop: 09/16/25 07:59 Last Admin: 09/16/24 09:30 Dose: Not Given Insulin Glargine (Insulin Glargine 300 Units/3 Ml Insuln.Pen) 20 units SUBCUT [facility] Stop: 09/16/25 21:59 Isosorbide Mononitrate (Isosorbide Mononitrate 24hr Er 60 Mg Tab.Er.24h) 60 mg PO BID [facility] Stop: 09/16/25 08:59 Last Admin: 09/16/24 10:52 Dose: 60 mg Lisinopril (Lisinopril 20 Mg Tablet) 20 mg PO DAILY [facility] Stop: 09/16/25 08:59 Last Admin: 09/16/24 10:51 Dose: 20 mg Melatonin (Melatonin 5 Mg Tablet) 5 mg PO QHS PRN PRN Reason: Insomnia Stop: 09/16/25 02:16 Nitroglycerin (Nitroglycerin 0.4 Mg Tab.Subl) 0.4 mg SUBLINGUAL Q5MIN.X3 PRN PRN Reason: Chest Pain Stop: 09/16/25 03:20 Ondansetron HCl (Ondansetron 4 Mg/2 Ml Vial) 4 mg IV-PUSH Q6H PRN PRN Reason: Nausea And Vomiting Stop: 09/16/25 02:16 Pantoprazole Sodium (Pantoprazole 40 Mg Tablet.Dr) 40 mg PO BID [facility] Stop: 09/16/25 08:59 Last Admin: 09/16/24 10:51 Dose: 40 mg Paricalcitol (Paricalcitol 10 Mcg/2 Ml Vial) 5 mcg IV-PUSH MoWeFr@1000 [facility] Stop: 09/16/25 09:59 Sennosides (Sennosides 8.6 Mg Tablet) 8.6 mg PO BID [facility] Stop: 09/16/25 08:59 Last Admin: 09/16/24 10:53 Dose: 8.6 mg Sertraline HCl (Sertraline 100 Mg Tablet) 100 mg PO DAILY [facility] Stop: 09/16/25 08:59 Last Admin: 09/16/24 10:55 Dose: 100 mg Sodium Chloride (Sodium Chloride 0.9 % 10 Ml Syringe) 0 ml IV-PUSH PRN PRN PRN Reason: Flush Stop: 09/15/25 18:55 Sodium Chloride (Sodium Chloride 0.9 % 10 Ml Syringe) 0 ml IV-PUSH PRN PRN PRN Reason: Flush Stop: 09/16/25 09:22 Exam Physical Exam Vital Signs: Temp Pulse Resp BP Pulse Ox O2 Del Method O2 Flow Rate 100.1 F H 78 18 205/96 H 99 Room Air 2 09/15/24 18:53 09/16/24 09:44 09/16/24 09:44 09/16/24 08:43 09/16/24 08:43 09/16/24 08:43 09/16/24 08:00 Narrative: General: Appears comfortable and not in distress Heart: S1-S2, no rub Lung: Bilateral air entry, no wheezing or crackles Abdomen: Soft, positive bowel sounds Extremities: No edema, no cyanosis Head: Atraumatic, normocephalic Ear: No gross hearing Deficit or external ear redness Eyes: No pallor or redness Neck: No JVD or visible mass Skin: No rashes , warm to touch DROP FORGE HAND: Awake,Alert, following simple command Musculoskeletal: No swelling or limitation of movement of the large joints Psychiatric: Cooperative, normal mood and affect Results - Nephrology Labs 09/16/24 04:45 09/16/24 04:52 Labs: 09/15/24 09/16/24 09/16/24 21:34 04:52 08:39 BUN 49 H 52 H Creatinine 6.29 H 6.71 H Albumin 4.0 Urine Color Yellow Urine Appearance Cloudy A Urine pH >= 9.0 Ur Specific Young Harris 1.012 Urine Protein 300 H Urine Glucose (UA) 250 H Urine Ketones Negative Urine Occult Blood 1+ H Urine Nitrite Negative Ur Leukocyte Esterase Negative Urine RBC 10-19 H Urine WBC 1-2 Urine Bacteria None seen Radiology Impressions Impressions - last 24 hours: Impressions Chest X-Ray 09/15/24 21:30 IMPRESSION: Focal left basilar atelectasis/infiltrate Impression dictated by: Alec Flynn M.D.09/15/2024 10:19 PM Dictation Location: [facility] Abdomen/Pelvis CT 09/15/24 22:55 IMPRESSION: No bowel obstruction. Mild constipation. Impression dictated by: Alec Flynn M.D.09/15/2024 11:16 PM Dictation Location: [place] [address] Any impression(s) listed above is documentation that was entered by the reading physician into a diagnostic report(s) for Yoel Werner. I have reviewed the report(s) and am incorporating any findings in the treatment plan of this patient where applicable. A&P - Nephrology Assessment/Plan (1) COVID-19: Assessment/Problem Details: Patient currently has COVID-19 infection. He may benefit with remdesivir due tohis medical comorbidities including ESRD and diabetes. (2) ESRD on hemodialysis: Assessment/Problem Details: He has ESRD due to the diabetic nephropathy and hypertensive nephrosclerosis. (3) Hypertensive CKD, ESRD on dialysis: Assessment/Problem Details: Blood pressure is high due to the hypervolemia. (4) Anemia of renal disease: Assessment/Problem Details: Hemoglobin is below the goal. He receives Procrit with dialysis. (5) Secondary hyperparathyroidism: Assessment/Problem Details: He has a second hyperparathyroidism due to the hyperphosphatemia and ESRD. Currently takes calcium acetate with meals and also receives IV Zemplar Plan * Hemodialysis today as ordered * Will consult ID for evaluation of remdesivir. * Will continue outpatient dose of the Procrit 3 times a week. * Will continue outpatient dose of the IV Zemplar 3 times a week with dialysis and oral calcium acetate with meals * Continue home dose of the antihypertensive medications. * Continue DM management as per the primary hospitalist team. * Thanks for consult. Will continue follow-up with you. Please feel free to call us with any question. Documented By: Angel Mejía MD 09/16/24 1136 Signed By: 09/16/24 1240 [facility]01-29-2025 History and physical note Author Brigid Anderson [facility] Note Date/Time September 16, 2024 5 :03am [facility] [address] [place] [address] Hospitalist H&P Signed Patient: Yoel Wernre MR#: [id number] : 1985 Acct:[id number] Age/Sex: 39 / M Adm Date: 5 Loc: Room: [address] [place] [address] Type: ADM IN Attending Dr: Julio Allen MD Copies to: DO Julio Leblanc MD Paula G Smith, CAR OILER~ HPI DATE OF EXAMINATION: 09/16/24 CHIEF COMPLAINT: abdominal pain, difficulty urinating HISTORY OF PRESENT ILLNESS: Mr. Werner is a 39-year-old male with a PMH of T1DM, diastolic heart failure,HTN, HLD, ESRD on HD, CAD, anemia of chronic disease the presented to the emergency room tonight for complaints of abdominal pain, difficulty urinating. Patient states that he had stomach pains today around his pelvic area, difficulty with urination. Reports that today he had to sit and strain with poor stream x 2. He been up to [facility] yesterday for testing for his kidney and pancreas transplant. States the pain was aggravated when he would try to walk sometimes breathe. Currently rates his pain a 4/10. States that he has been coughing for quite a while now. He denies fever, chills, chest pain, diarrhea. States that he is usually constipated, does not take any stool softeners becauseit would require him to drink extra water. Denies tobacco, alcohol or illicit drug use. CT of the abdomen and pelvis shows constipation, marked atherosclerosis, no bowel obstruction. Chest x-ray shows focal left basilar atelectasis/infiltrate. CBC pancytopenic with white blood cell count of 3.5, RBCs 3.28, H&H 9.5/20.2, platelets 113. CMP with sodium 132, potassium 5.7, BUN 49, creatinine 6.29, glucose 161. Lactic acid 0.6 x 2. Nasal swab was positive for COVID-19. Bloodcultures were drawn and these are pending. EKG normal sinus rhythm nonspecific T wave abnormality. Patient was medicated with Dilaudid, Zofran, acetaminophen,ceftriaxone, azithromycin and 500 cc saline bolus. Hypoxia was noted after patient was medicated with hydromorphone, oxygen was applied. SpO2 98% during exam, placed on room air, SpO2 94% on room air. He will be admitted as inpatient to the [facility] telemetry floor. Review of Systems Review of Systems Review of systems: A 10 point review of systems was obtained, negative unless noted in the HPI or below. [facility] Medical History (Updated 09/16/24 @ 03:38 by Brigid Anderson APRN) Chronic heart failure with preserved ejection fraction (HFpEF) Type 1 diabetes mellitus with hyperglycemia Mitral regurgitation Wellness examination Hypertensive CKD, ESRD on dialysis Secondary hyperparathyroidism Dependence on renal dialysis Sat-Sat-Sat EBENEZER (generalized anxiety disorder) Mixed hyperlipidemia Monoclonal (M) protein disease, multiple 'M' protein Insomnia Cataract left eye-removed ESRD (end stage renal disease) on dialysis Sat-Sat-Sat ASHD (arteriosclerotic heart disease) Echo: LVEF 60%, LVH, normal RV function but enlarged, RVSP elevated, severe MR - 08/2024 Primary hypertension Peyronie's disease Erectile dysfunction due to arterial insufficiency Chronic venous insufficiency Anemia in chronic kidney disease CAD (coronary artery disease) Diabetes mellitus Depression AV fistula left arm Asthmatic bronchitis , chronic PTSD (post-traumatic stress disorder) MGUS (monoclonal gammopathy of unknown significance) History of blood transfusion 2020 Diabetic retinopathy History of myocardial infarction 2021 Surgical History H/O heart artery stent (~02/2024) x5, 02/2024 - no intervention, History of bone marrow biopsy H/O eye surgery right and left repair retina Hx of knee surgery scope at age 17 Hx of vasectomy 7yrs ago Family History Mother Liver disease Diabetes Pancreatic cancer Father Diverticulitis Hypertension IBS (irritable bowel syndrome) Stroke Heart disease History of stroke Family history of mental disorder Social History Smoking Status: Former smoker Tobacco Type: cigarettes Substance Use Type: None Substance Abuse Comment: Has not used in a few months ; Medical card that in Sep 2023 Social History Comments: lives with dad Meds Medications and Allergies Allergies ticagrelor (From Brilinta) Allergy (Verified 09/15/24 18:56) shortness of breath Home Medications nitroglycerin 0.4 mg sublingual tablet 0.4 mg sublingual Q5MIN.X3 PRN Chest Pain30 days #25 tabs 11/17/21 [Rx Confirmed 09/16/24] aspirin 81 mg chewable tablet (Children's Aspirin) 81 mg PO QAM 09/10/22 [History Confirmed 09/16/24] isosorbide mononitrate 60 mg tablet,extended release 24 hr 60 mg PO BID 11/12/22[History Confirmed 09/16/24] calcium acetate 667 mg tablet 1,334 mg PO TID 11/13/23 [History Confirmed 09/16/24] insulin lispro 100 unit/mL subcutaneous pen (Humalog KwikPen (U-100) Insulin) 1 sliding scale dose subcut USEASDIRECTD 11/13/23 [History Confirmed 09/16/24] insulin glargine 100 unit/mL subcutaneous solution (Lantus U-100 Insulin) 20 unit subcut HS 11/26/23 [History Confirmed 09/16/24] 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 meter,continuous (FreeStyle Ramy 3 Tornillo) #1 ea 03/02/24 [Rx Confirmed 09/02/24] 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 meter,continuous (FreeStyle Ramy 3 [place]ornillo) #1 ea 03/19/24 [Rx Confirmed 09/02/24] omeprazole 40 mg capsule,delayed release See Rx Instructions .Route .COMPLEX #90caps 04/21/24 [Rx Confirmed 09/16/24] lisinopril 20 mg tablet 20 mg PO DAILY 30 days #30 tabs 04/29/24 [Rx Confirmed 09/16/24] 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 sensor (FreeStyle Ramy 3 Plus Sensor device) #1 ea 05/17/24 [Rx Confirmed 09/02/24] famotidine 20 mg tablet 40 mg PO QPM 06/22/24 [History Confirmed 09/16/24] carvedilol 25 mg tablet See Rx Instructions .Route .COMPLEX #180 tabs 07/21/24 [Rx Confirmed 09/16/24] sertraline 100 mg tablet See Rx Instructions .Route .COMPLEX #90 tabs 07/21/24 [Rx Confirmed 09/16/24] hydralazine 100 mg tablet 100 mg PO BID 30 days #60 tabs 08/07/24 [Rx Confirmed 09/16/24] amlodipine 2.5 mg tablet 10 mg PO DAILY 08/28/24 [History Confirmed 09/16/24] clopidogrel 75 mg tablet (Plavix) 75 mg PO DAILY 08/28/24 [History Confirmed 09/16/24] azithromycin 250 mg tablet 250 mg PO Q24H 3 days #3 tabs 08/29/24 [Rx Confirmed 09/02/24] furosemide 80 mg tablet (Lasix) 80 mg PO BID@0800,1600 30 days #60 tabs 08/29/24[Rx Confirmed 09/16/24] acetaminophen 500 mg tablet 1,000 mg (2 x 500 mg) PO TID PRN pain 15 days #90 tabs 09/02/24 [Rx Confirmed 09/16/24] hydroxyzine HCl 25 mg tablet See Rx Instructions .Route .COMPLEX #90 tabs 09/02/24 [Rx Confirmed 09/16/24] atorvastatin 80 mg tablet 80 mg PO QAM 09/16/24 [History Confirmed 09/16/24] Exam Physical Exam Vital Signs: Temp Pulse Resp BP Pulse Ox O2 Del Method O2 Flow Rate 100.1 F H 72 18 172/84 H 96 Room Air 2 09/15/24 18:53 09/16/24 03:18 09/16/24 03:18 09/16/24 03:18 09/16/24 03:18 09/16/24 03:18 09/16/24 02:20 Narrative: CONST- Appears well -developed, ill-appearing HEAD - Normocephalic and atraumatic EENT-Sclera nonicteric, conjunctive are non-erythemic, moist oral mucosa, pharynx clear NECK-Supple, no cervical lymphadenopathy CARDIAC-normal rate, regular rhythm, S1 & S2. Murmur PULM-diminished, tight, fine crackles to right posterior base, RA, no accessory muscle use or cough noted ABD - Soft. Bowel sounds are normal. No distention. tenderness to pelvic area, no guarding, no rebound tenderness EXTREM-no edema BLE calves, nontender, AV fistula to LUE- good thrill SKIN- W/D good turgor MS- MAEX4 spontaneously with equal with equal strength NEURO- A&Ox3 speech clear and tongue midline, equal facial symmetry, no focal motor deficits PSYCH-Mood, affect, and behavior appropriate Results - Hospitalist H&P Lab Results Labs: Laboratory Last Values Corrected WBC 3.5 X10E3/uL (4.1-10.5) L 09/15/24 21:34 Uncorrected WBC Count 3.5 x10E3/uL (4.1-10.5) L 09/15/24 21:34 RBC 3.28 x10E6/uL (3.90-5.60) L 09/15/24 21:34 Hgb 9.5 g/dL (13.0-17.0) L 09/15/24 21:34 Hct 28.2 % (38.8-50.0) L 09/15/24 21:34 MCV 86.1 fl (83.5-101) 09/15/24 21:34 MCH 29.0 pg (27.5-35.2) 09/15/24 21:34 MCHC 33.6 g/dL (32.5-35.6) 09/15/24 21:34 RDW 14.0 % (12.0-14.8) 09/15/24 21:34 Plt Count 113 x10E3/uL (150-450) L 09/15/24 21:34 MPV 7.5 fl (6.6-10.1) 09/15/24 21:34 Neut % (Auto) 74.9 % (.) 09/15/24 21:34 Lymph % (Auto) 11.0 % (.) 09/15/24 21:34 Pershing % (Auto) 10.9 % (.) 09/15/24 21:34 Eos % (Auto) 1.8 % (.) 09/15/24 21:34 Baso % (Auto) 1.4 % (.) 09/15/24 21:34 Nucleat RBC Rel Count 0.1 /100 WBC (0-0.5) 09/15/24 21: Neut # (Auto) 2.6 x10E3/uL (1.8-7.7) 09/15/24 21: Lymph # (Auto) 0.4 x10E3/uL (1.00-4.8) L 09/15/24 21:34 Pershing # (Auto) 0.4 x10E3/uL (0.0-0.8) 09/15/24 21: Eos # (Auto) 0.1 x10E3/uL (0.0-0.45) 09/15/24 21:34 Baso # (Auto) 0.0 x10E3/uL (0.0-0.2) 09/15/24: Monocyte Dist Width 20.91 % (0.00-20.00) H 09/15/24 21:34 PHA Creatinine Clear 16.06 09/15/24 21:34 Sodium 132 mmol/L (136-145) L 09/15/24 21: Potassium 5.7 mmol/L (3.5-5.1) H 09/15/24 21: Chloride 96 mmol/L (98-107) L 09/15/24 21: Carbon Dioxide 25.2 mmol/L (21.0-31.0) 09/15/24: Anion Gap 16.5 mEq/L (6.0-15.0) H 09/15/24 21: BUN 49 mg/dL (7-25) H 09/15/24 21:34 Creatinine 6.29 mg/dL (0.70-1.30) H 09/15/24 21:34 Est GFR (CKD-EPI) 10.806 mL/Min 09/15/24 21: Glucose 161 mg/dL (70-100) H 09/15/24 21:34 POC Glucose 158 mg/dl 09/15/24 23:19 POC Glucose Comment 09/15/24 18:57 POC Glucose Comment Cleaned meter 09/15/24 18:57 Lactic Acid 0.6 mmol/L (0.5-1.9) 09/15/24 23:24 Calcium 9.0 mg/dL (8.6-10.3) 09/15/24 21:34 Total Bilirubin 0.6 mg/dl (0.3-1.0) 09/15/24 21:34 AST 26 U/L (13-39) 09/15/24 21:34 ALT 19 U/L (7-52) 09/15/24 21:34 Alkaline Phosphatase 55 U/L (34-104) 09/15/24 21:34 Total Protein 6.9 gm/dL (6.4-8.9) 09/15/24 21:34 Albumin 4.0 gm/dL (3.5-5.7) 09/15/24 21:34 Globulin 2.9 gm/dL 09/15/24 21:34 Albumin/Globulin Ratio 1.4 09/15/24 21:34 SARS-CoV-2 Rap RNA(RT-PCR) Positive (Negative) A 09/15/24 23:44 Microbiology Results Micro: Microbiology - Results from entire visit 09/15/24 23:44 Nasopharyngeal SARS-CoV-2, Influenza & RSV (PCR) - Final Assessment & Plan Assessment/Plan (1) CAP (community acquired pneumonia): (2) COVID-19: (3) Constipation: Plan Community acquired pneumonia Covid 19 - Continue ceftriaxone- pharmacy to dose, azithromycin - Duonebs QID, albuterol as needed - Robitussin as needed - Acetaminophen as needed - Follow blood cultures - Sputum culture Constipation - Senna bid, mag citrate x 1 dose Difficulty with urination- bladder scan as needed, notify provider for volume > 400cc Chronic conditions Diastolic heart failure T1DM ESRD on HD- consult nephrology for dialysis treatment, patient is on M// schedule HTN GERD DVT PPx?heparin Diet order?1800 ADA, heart healthy, renal on HD CODE STATUS?full code Dr. Allen Attestation: Patient was personally seen by me on the day of encounter. I reviewed his history and performed renner elements of exam and formulated the plan of care and confirmed the nurse practitioner's note above. Plan of care reflects my direct input. IP vs OBS Justification Based on differential dx, clinical care plan, and risk of adverse events, if untreated, in my clinical judgement this patient requires an acute care setting as: INPATIENT because of an expectation of an over 2 midnight stay. Estimated length of stay (# of days): 3 Documented By: Brigid Anderson APRN 09/16/24 0323 Signed By: <Electronically signed by JOSH Anderson> 09/16/24 0357 <Electronically signed by Julio Allen MD> 09/16/24 0503 [facility] Work Phone: 1(226) 692-251301-29-2025 History and physical note Author Brigid Anderson [facility] Note Date/Time September 16, 2024 5 :03am [facility] [address] [place] [address] Hospitalist H&P Signed Patient: Yoel Werner MR#: [id number] : 1985 Acct:[id number] Age/Sex: 39 / M Adm Date: 5 Loc: Room: [address] [place] [address] Type: ADM IN Attending Dr: Julio Allen MD Copies to: DO Julio Leblanc MD Paula G Smith, JOSH~ HPI DATE OF EXAMINATION: 09/16/24 CHIEF COMPLAINT: abdominal pain, difficulty urinating HISTORY OF PRESENT ILLNESS: Mr. Werner is a 39-year-old male with a PMH of T1DM, diastolic heart failure,HTN, HLD, ESRD on HD, CAD, anemia of chronic disease the presented to the emergency room tonight for complaints of abdominal pain, difficulty urinating. Patient states that he had stomach pains today around his pelvic area, difficulty with urination. Reports that today he had to sit and strain with poor stream x 2. He been up to [facility] yesterday for testing for his kidney and pancreas transplant. States the pain was aggravated when he would try to walk sometimes breathe. Currently rates his pain a 4/10. States that he has been coughing for quite a while now. He denies fever, chills, chest pain, diarrhea. States that he is usually constipated, does not take any stool softeners becauseit would require him to drink extra water. Denies tobacco, alcohol or illicit drug use. CT of the abdomen and pelvis shows constipation, marked atherosclerosis, no bowel obstruction. Chest x-ray shows focal left basilar atelectasis/infiltrate. CBC pancytopenic with white blood cell count of 3.5, RBCs 3.28, H&H 9.5/20.2, platelets 113. CMP with sodium 132, potassium 5.7, BUN 49, creatinine 6.29, glucose 161. Lactic acid 0.6 x 2. Nasal swab was positive for COVID-19. Bloodcultures were drawn and these are pending. EKG normal sinus rhythm nonspecific T wave abnormality. Patient was medicated with Dilaudid, Zofran, acetaminophen,ceftriaxone, azithromycin and 500 cc saline bolus. Hypoxia was noted after patient was medicated with hydromorphone, oxygen was applied. SpO2 98% during exam, placed on room air, SpO2 94% on room air. He will be admitted as inpatient to the [facility] telemetry floor. Review of Systems Review of Systems Review of systems: A 10 point review of systems was obtained, negative unless noted in the HPI or below. [facility] Medical History (Updated 09/16/24 @ 03:38 by Brigid Anderson APRN) Chronic heart failure with preserved ejection fraction (HFpEF) Type 1 diabetes mellitus with hyperglycemia Mitral regurgitation Wellness examination Hypertensive CKD, ESRD on dialysis Secondary hyperparathyroidism Dependence on renal dialysis Sat- EBENEZER (generalized anxiety disorder) Mixed hyperlipidemia Monoclonal (M) protein disease, multiple 'M' protein Insomnia Cataract left eye-removed ESRD (end stage renal disease) on dialysis Sat- ASHD (arteriosclerotic heart disease) Echo: LVEF 60%, LVH, normal RV function but enlarged, RVSP elevated, severe MR - 08/2024 Primary hypertension Peyronie's disease Erectile dysfunction due to arterial insufficiency Chronic venous insufficiency Anemia in chronic kidney disease CAD (coronary artery disease) Diabetes mellitus Depression AV fistula left arm Asthmatic bronchitis , chronic PTSD (post-traumatic stress disorder) MGUS (monoclonal gammopathy of unknown significance) History of blood transfusion 2020 Diabetic retinopathy History of myocardial infarction 2021 Surgical History H/O heart artery stent (~02/2024) x5, 02/2024 - no intervention, History of bone marrow biopsy H/O eye surgery right and left repair retina Hx of knee surgery scope at age 17 Hx of vasectomy 7yrs ago Family History Mother Liver disease Diabetes Pancreatic cancer Father Diverticulitis Hypertension IBS (irritable bowel syndrome) Stroke Heart disease History of stroke Family history of mental disorder Social History Smoking Status: Former smoker Tobacco Type: cigarettes Substance Use Type: None Substance Abuse Comment: Has not used in a few months ; Medical card that in Sep 2023 Social History Comments: lives with dad Meds Medications and Allergies Allergies ticagrelor (From Skeedilinta) Allergy (Verified 09/15/24 18:56) shortness of breath Home Medications nitroglycerin 0.4 mg sublingual tablet 0.4 mg sublingual Q5MIN.X3 PRN Chest Pain30 days #25 tabs 11/17/21 [Rx Confirmed 09/16/24] aspirin 81 mg chewable tablet (Children's Aspirin) 81 mg PO QAM 09/10/22 [History Confirmed 09/16/24] isosorbide mononitrate 60 mg tablet,extended release 24 hr 60 mg PO BID 11/12/22[History Confirmed 09/16/24] calcium acetate 667 mg tablet 1,334 mg PO TID 11/13/23 [History Confirmed 09/16/24] insulin lispro 100 unit/mL subcutaneous pen (Humalog KwikPen (U-100) Insulin) 1 sliding scale dose subcut USEASDIRECTD 11/13/23 [History Confirmed 09/16/24] insulin glargine 100 unit/mL subcutaneous solution (Lantus U-100 Insulin) 20 unit subcut HS 11/26/23 [History Confirmed 09/16/24] 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 meter,continuous (FreeStyle Ramy 3 Tornillo) #1 ea 03/02/24 [Rx Confirmed 09/02/24] 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 meter,continuous (FreeStyle Ramy 3 Tornillo) #1 ea 03/19/24 [Rx Confirmed 09/02/24] omeprazole 40 mg capsule,delayed release See Rx Instructions .Route .COMPLEX #90caps 09/03/24 [Rx Confirmed 09/16/24] lisinopril 20 mg tablet 20 mg PO DAILY 30 days #30 tabs 04/29/24 [Rx Confirmed 09/16/24] 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 sensor (FreeStyle Ramy 3 Plus Sensor device) #1 ea 05/17/24 [Rx Confirmed 09/02/24] famotidine 20 mg tablet 40 mg PO QPM 06/22/24 [History Confirmed 09/16/24] carvedilol 25 mg tablet See Rx Instructions .Route .COMPLEX #180 tabs 07/21/24 [Rx Confirmed 09/16/24] sertraline 100 mg tablet See Rx Instructions .Route .COMPLEX #90 tabs 07/21/24 [Rx Confirmed 09/16/24] hydralazine 100 mg tablet 100 mg PO BID 30 days #60 tabs 08/07/24 [Rx Confirmed 09/16/24] amlodipine 2.5 mg tablet 10 mg PO DAILY 08/28/24 [History Confirmed 09/16/24] clopidogrel 75 mg tablet (Plavix) 75 mg PO DAILY 08/28/24 [History Confirmed 09/16/24] azithromycin 250 mg tablet 250 mg PO Q24H 3 days #3 tabs 08/29/24 [Rx Confirmed 09/02/24] furosemide 80 mg tablet (Lasix) 80 mg PO BID@0800,1600 30 days #60 tabs 08/29/24[Rx Confirmed 09/16/24] acetaminophen 500 mg tablet 1,000 mg (2 x 500 mg) PO TID PRN pain 15 days #90 tabs 09/02/24 [Rx Confirmed 09/16/24] hydroxyzine HCl 25 mg tablet See Rx Instructions .Route .COMPLEX #90 tabs 09/02/24 [Rx Confirmed 09/16/24] atorvastatin 80 mg tablet 80 mg PO QAM 09/16/24 [History Confirmed 09/16/24] Exam Physical Exam Vital Signs: Temp Pulse Resp BP Pulse Ox O2 Del Method O2 Flow Rate 100.1 F H 72 18 172/84 H 96 Room Air 2 09/15/24 18:53 09/16/24 03:18 09/16/24 03:18 09/16/24 03:18 09/16/24 03:18 09/16/24 03:18 09/16/24 02:20 Narrative: CONST- Appears well -developed, ill-appearing HEAD - Normocephalic and atraumatic EENT-Sclera nonicteric, conjunctive are non-erythemic, moist oral mucosa, pharynx clear NECK-Supple, no cervical lymphadenopathy CARDIAC-normal rate, regular rhythm, S1 & S2. Murmur PULM-diminished, tight, fine crackles to right posterior base, RA, no accessory muscle use or cough noted ABD - Soft. Bowel sounds are normal. No distention. tenderness to pelvic area, no guarding, no rebound tenderness EXTREM-no edema BLE calves, nontender, AV fistula to LUE- good thrill SKIN- W/D good turgor MS- MAEX4 spontaneously with equal with equal strength NEURO- A&Ox3 speech clear and tongue midline, equal facial symmetry, no focal motor deficits PSYCH-Mood, affect, and behavior appropriate Results - Hospitalist H&P Lab Results Labs: Laboratory Last Values Corrected WBC 3.5 X10E3/uL (4.1-10.5) L 09/15/24 21:34 Uncorrected WBC Count 3.5 x10E3/uL (4.1-10.5) L 09/15/24 21:34 RBC 3.28 x10E6/uL (3.90-5.60) L 09/15/24 21:34 Hgb 9.5 g/dL (13.0-17.0) L 09/15/24 21:34 Hct 28.2 % (38.8-50.0) L 09/15/24 21:34 MCV 86.1 fl (83.5-101) 09/15/24 21:34 MCH 29.0 pg (27.5-35.2) 09/15/24 21:34 MCHC 33.6 g/dL (32.5-35.6) 09/15/24 21:34 RDW 14.0 % (12.0-14.8) 09/15/24 21:34 Plt Count 113 x10E3/uL (150-450) L 09/15/24 21:34 MPV 7.5 fl (6.6-10.1) 09/15/24 21:34 Neut % (Auto) 74.9 % (.) 09/15/24 21:34 Lymph % (Auto) 11.0 % (.) 09/15/24 21:34 Pershing % (Auto) 10.9 % (.) 09/15/24 21:34 Eos % (Auto) 1.8 % (.) 09/15/24 21:34 Baso % (Auto) 1.4 % (.) 09/15/24 21:34 Nucleat RBC Rel Count 0.1 /100 WBC (0-0.5) 09/15/24 21:34 Neut # (Auto) 2.6 x10E3/uL (1.8-7.7) 09/15/24 21:34 Lymph # (Auto) 0.4 x10E3/uL (1.00-4.8) L 09/15/24 21:34 Pershing # (Auto) 0.4 x10E3/uL (0.0-0.8) 09/15/24 21:34 Eos # (Auto) 0.1 x10E3/uL (0.0-0.45) 09/15/24 21:34 Baso # (Auto) 0.0 x10E3/uL (0.0-0.2) 09/15/24 21:34 Monocyte Dist Width 20.91 % (0.00-20.00) H 09/15/24 21:34 PHA Creatinine Clear 16.06 09/15/24 21:34 Sodium 132 mmol/L (136-145) L 09/15/24 21:34 Potassium 5.7 mmol/L (3.5-5.1) H 09/15/24 21:34 Chloride 96 mmol/L (98-107) L 09/15/24 21:34 Carbon Dioxide 25.2 mmol/L (21.0-31.0) 09/15/24 21:34 Anion Gap 16.5 mEq/L (6.0-15.0) H 09/15/24 21:34 BUN 49 mg/dL (7-25) H 09/15/24 21:34 Creatinine 6.29 mg/dL (0.70-1.30) H 09/15/24 21:34 Est GFR (CKD-EPI) 10.806 mL/Min 09/15/24 21:34 Glucose 161 mg/dL (70-100) H 09/15/24 21:34 POC Glucose 158 mg/dl 09/15/24 23:19 POC Glucose Comment 09/15/24 18:57 POC Glucose Comment Cleaned meter 09/15/24 18:57 Lactic Acid 0.6 mmol/L (0.5-1.9) 09/15/24 23:24 Calcium 9.0 mg/dL (8.6-10.3) 09/15/24 21:34 Total Bilirubin 0.6 mg/dl (0.3-1.0) 09/15/24 21:34 AST 26 U/L (13-39) 09/15/24 21:34 ALT 19 U/L (7-52) 09/15/24 21:34 Alkaline Phosphatase 55 U/L (34-104) 09/15/24 21:34 Total Protein 6.9 gm/dL (6.4-8.9) 09/15/24 21:34 Albumin 4.0 gm/dL (3.5-5.7) 09/15/24 21:34 Globulin 2.9 gm/dL 09/15/24 21:34 Albumin/Globulin Ratio 1.4 09/15/24 21:34 SARS-CoV-2 Rap RNA(RT-PCR) Positive (Negative) A 09/15/24 23:44 Microbiology Results Micro: Microbiology - Results from entire visit 09/15/24 23:44 Nasopharyngeal SARS-CoV-2, Influenza & RSV (PCR) - Final Assessment & Plan Assessment/Plan (1) CAP (community acquired pneumonia): (2) COVID-19: (3) Constipation: Plan Community acquired pneumonia Covid 19 - Continue ceftriaxone- pharmacy to dose, azithromycin - Duonebs QID, albuterol as needed - Robitussin as needed - Acetaminophen as needed - Follow blood cultures - Sputum culture Constipation - Senna bid, mag citrate x 1 dose Difficulty with urination- bladder scan as needed, notify provider for volume > 400cc Chronic conditions Diastolic heart failure T1DM ESRD on HD- consult nephrology for dialysis treatment, patient is on M// schedule HTN GERD DVT PPx?heparin Diet order?1800 ADA, heart healthy, renal on HD CODE STATUS?full code Dr. Allen Attestation: Patient was personally seen by me on the day of encounter. I reviewed his history and performed renner elements of exam and formulated the plan of care and confirmed the nurse practitioner's note above. Plan of care reflects my direct input. IP vs OBS Justification Based on differential dx, clinical care plan, and risk of adverse events, if untreated, in my clinical judgement this patient requires an acute care setting as: INPATIENT because of an expectation of an over 2 midnight stay. Estimated length of stay (# of days): 3 Documented By: Brigid Anderson APRN 09/16/24 0323 Signed By: <Electronically signed by JOSH Anderson> 09/16/24 0357 <Electronically signed by Julio Allen MD> 09/16/24 0507 [facility] Work Phone: [phone]) 305-983401-29-2025 [place] [address] Hospitalist H&P Signed Patient: Yoel Werner MR#: [id number] : 1985 Acct:[id number] Age/Sex: 39 / M Adm Date: 5 Loc: Room: [address] [place] [address] Type: ADM IN Attending Dr: Julio Allen MD Copies to: DO Julio Leblanc MD Paula G Smith, JOSH~ HPI DATE OF EXAMINATION: 09/16/24 CHIEF COMPLAINT: abdominal pain, difficulty urinating HISTORY OF PRESENT ILLNESS: Mr. Werner is a 39-year-old male with a PMH of T1DM, diastolic heart failure,HTN, HLD, ESRD on HD, CAD, anemia of chronic disease the presented to the emergency room tonight for complaints of abdominal pain, difficulty urinating. Patient states that he had stomach pains today around his pelvic ar ea, difficulty with urination. Reports that today he had to sit and strain with poor stream x 2. [facility] for his kidney and pancreas transplant. States the pain was aggravated when he would try to walk sometimes breathe. Currently rates his pain a 4/10. States that he has been coughing for quite a while now. He denies fever, chills, chest pain, diarrhea. States that he is usually constipated, does not take any stool softeners becauseit would require him to drinkextra water. Denies tobacco, alcohol or illicit drug use. CT of the abdomen and pelvis shows constipation, marked atherosclerosis, no bowel obstruction. Chest x-ray shows focal left basilar atelectasis/infiltrate. CBC pancytopenic with white blood cell count of 3.5, RBCs 3.28, H&H 9.5/20.2, platelets 113. CMP with sodium 132, potassium 5.7, BUN 49, creatinine 6.29, glucose 161. Lactic acid 0.6 x 2. Nasal swab was positive for COVID-19. Bloodcultureswere drawn and these are pending. EKG normal sinus rhythm nonspecific T wave abnormality. Patient was medicated with Dilaudid, Zofran, acetaminophen,ceftriaxone, azithromycin and 500 cc saline bolus.Hypoxia was noted after patient was medicated with hydromorphone, oxygen was applied. SpO2 98% during exam, placed on room air, SpO2 94% on room air. He will be admitted as inpatient to the [facility] telemetry floor. Review of Systems Review of Systems Review of systems: A 10 point review of systems was obtained, negative unless noted in the HPI or below. [facility] Medical History (Updated 09/16/24 @ 03:38 by Brigid Anderson APRN) Chronic heart failure with preserved ejection fraction (HFpEF) Type 1 diabetes mellitus with hyperglycemia Mitral regurgitation Wellness examination Hypertensive CKD, ESRD on dialysis Secondary hyperparathyroidism Dependence on renal dialysis Sat-Sat-Sat EBENEZER (generalized anxiety disorder) Mixed hyperlipidemia Monoclonal (M) protein disease, multiple 'M' protein Insomnia Cataract left eye-removed ESRD (end stage renal disease) on dialysis Sat-Sat-Sat ASHD (arteriosclerotic heart disease) Echo: LVEF 60%, LVH, normal RV function but enlarged, RVSP elevated, severe MR - 08/2024 Primary hypertension Peyronie's disease Erectile dysfunction due to arterial insufficiency Chronic venous insufficiency Anemia in chronic kidney disease CAD (coronary artery disease) Diabetes mellitus Depression AV fistula left arm Asthmatic bronchitis , chronic PTSD (post-traumatic stress disorder) MGUS (monoclonal gammopathy of unknown significance) History of blood transfusion 2020 Diabetic retinopathy History of myocardial infarction 2021 Surgical History H/O heart artery stent (~02/2024) x5, 02/2024 - no intervention, History of bone marrow biopsy H/O eye surgery right and left repair retina Hx of knee surgery scope at age 17 Hx of vasectomy 7yrs ago Family History Mother Liver disease Diabetes Pancreatic cancer Father Diverticulitis Hypertension IBS (irritable bowel syndrome) Stroke Heart disease History of stroke Family history of mental disorder Social History Smoking Status: Former smoker Tobacco Type: cigarettes Substance Use Type: None Substance Abuse Comment: Has not used in a few months ; Medical card that in Sep 2023 Social History Comments: lives with dad Meds Medications and Allergies Allergies ticagrelor (From Brilinta) Allergy (Verified 09/15/24 18:56) shortness of breath Home Medications nitroglycerin 0.4 mg sublingual tablet 0.4 mg sublingual Q5MIN.X3 PRN Chest Pain30 days #25 tabs 11/17/21 [Rx Confirmed 09/16/24] aspirin 81 mg chewable tablet (Children's Aspirin) 81 mg PO QAM 09/10/22 [History Confirmed 09/16/24] isosorbide mononitrate 60 mg tablet,extended release 24 hr 60 mg PO BID 11/12/22[History Confirmed 09/16/24] calcium acetate 667 mg tablet 1,334 mg PO TID 11/13/23 [History Confirmed 09/16/24] insulin lispro 100 unit/mL subcutaneous pen (Humalog KwikPen (U-100) Insulin) 1 sliding scale dose subcut USEASDIRECTD 11/13/23 [History Confirmed 09/16/24] insulin glargine 100 unit/mL subcutaneous solution (Lantus U-100 Insulin) 20 unit subcut HS 11/26/23 [History Confirmed 09/16/24] 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 meter,continuous (FreeStyle Ramy 3 Tornillo) #1 ea 03/02/24 [Rx Confirmed 09/02/24] 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 meter,continuous (FreeStyle Ramy 3 Tornillo) #1 ea 03/19/24 [Rx Confirmed 09/02/24] omeprazole 40 mg capsule,delayed release See Rx Instructions .Route .COMPLEX #90caps 04/21/24 [Rx Confirmed 09/16/24] lisinopril 20 mg tablet 20 mg PO DAILY 30 days #30 tabs 04/29/24 [Rx Confirmed 09/16/24] 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 sensor (FreeStyle Ramy 3 Plus Sensor device) #1 ea 05/17/24 [Rx Confirmed 09/02/24] famotidine 20 mg tablet 40 mg PO QPM 06/22/24 [History Confirmed 09/16/24] carvedilol 25 mg tablet See Rx Instructions .Route .COMPLEX #180 tabs 07/21/24 [Rx Confirmed 09/16/24] sertraline 100 mg tablet See Rx Instructions .Route .COMPLEX #90 tabs 07/21/24 [Rx Confirmed 09/16/24] hydralazine 100 mg tablet 100 mg PO BID 30 days #60 tabs 08/07/24 [Rx Confirmed 09/16/24] amlodipine 2.5 mg tablet 10 mg PO DAILY 08/28/24 [History Confirmed 09/16/24] clopidogrel 75 mg tablet (Plavix) 75 mg PO DAILY 08/28/24 [History Confirmed 09/16/24] azithromycin 250 mg tablet 250 mg PO Q24H 3 days #3 tabs 08/29/24 [Rx Confirmed 09/02/24] furosemide 80 mg tablet (Lasix) 80 mg PO BID@0800,1600 30 days #60 tabs 08/29/24[Rx Confirmed 09/16/24] acetaminophen 500 mg tablet 1,000 mg (2 x 500 mg) PO TID PRN pain 15 days #90 tabs 09/02/24 [Rx Confirmed 09/16/24] hydroxyzine HCl 25 mg tablet See Rx Instructions .Route .COMPLEX #90 tabs 09/02/24 [Rx Confirmed 09/16/24] atorvastatin 80 mg tablet 80 mg PO QAM 09/16/24 [History Confirmed 09/16/24] Exam Physical Exam Vital Signs: Temp Pulse Resp BP Pulse Ox O2 Del Method O2 Flow Rate 100.1 F H 72 18 172/84 H 96 Room Air 2 09/15/24 18:53 09/16/24 03:18 09/16/24 03:18 09/16/24 03:18 09/16/24 03:18 09/16/24 03:18 09/16/24 02:20 Narrative: CONST- Appears well -developed, ill-appearing HEAD - Normocephalic and atraumatic EENT-Sclera nonicteric, conjunctive are non-erythemic, moist oral mucosa, pharynx clear NECK-Supple, no cervical lymphadenopathy CARDIAC-normal rate, regular rhythm, S1 & S2. Murmur PULM-diminished, tight, fine crackles to right posterior base, RA, no accessory muscle use or coughnoted ABD - Soft. Bowel sounds are normal. No distention. tenderness to pelvic area, no guarding, no rebound tenderness EXTREM-no edema BLE calves, nontender, AV fistula to LUE- good thrill SKIN- W/D good turgor MS- MAEX4 spontaneously with equal with equal strength NEURO- A&Ox3 speech clear and tongue midline, equal facial symmetry, no focal motor deficits PSYCH-Mood, affect, and behavior appropriate Results - Hospitalist H&P Lab Results Labs: Laboratory Last Values Corrected WBC 3.5 X10E3/uL (4.1-10.5) L 09/15/24 21:34 Uncorrected WBC Count 3.5 x10E3/uL (4.1-10.5) L 09/15/24 21:34 RBC 3.28 x10E6/uL (3.90-5.60) L 09/15/24 21:34 Hgb 9.5 g/dL (13.0-17.0) L 09/15/24 21:34 Hct 28.2 % (38.8-50.0) L 09/15/24 21:34 MCV 86.1 fl (83.5-101) 09/15/24 21:34 MCH 29.0 pg (27.5-35.2) 09/15/24 21:34 MCHC 33.6 g/dL (32.5-35.6) 09/15/24 21:34 RDW 14.0 % (12.0-14.8) 09/15/24 21:34 Plt Count 113 x10E3/uL (150-450) L 09/15/24 21:34 MPV 7.5 fl (6.6-10.1) 09/15/24: Neut % (Auto) 74.9 % (.) 09/15/24: Lymph % (Auto) 11.0 % (.) 09/15/24 21: Pershing % (Auto) 10.9 % (.) 09/15/24 21: Eos % (Auto) 1.8 % (.) 09/15/24: Baso % (Auto) 1.4 % (.) 09/15/24 21:34 Nucleat RBC Rel Count 0.1 /100 WBC (0-0.5) 09/15/24 21:34 Neut # (Auto) 2.6 x10E3/uL (1.8-7.7) 09/15/24 21:34 Lymph # (Auto) 0.4 x10E3/uL (1.00-4.8) L 09/15/24 21:34 Pershing # (Auto) 0.4 x10E3/uL (0.0-0.8) 09/15/24 21:34 Eos # (Auto) 0.1 x10E3/uL (0.0-0.45) 09/15/24 21:34 Baso # (Auto) 0.0 x10E3/uL (0.0-0.2) 09/15/24 21:34 Monocyte Dist Width 20.91 % (0.00-20.00) H 09/15/24 21:34 PHA Creatinine Clear 16.06 09/15/24 21:34 Sodium 132 mmol/L (136-145) L 09/15/24 21:34 Potassium 5.7 mmol/L (3.5-5.1) H 09/15/24 21:34 Chloride 96 mmol/L (98-107) L 09/15/24 21:34 Carbon Dioxide 25.2 mmol/L (21.0-31.0) 09/15/24 21:34 Anion Gap 16.5 mEq/L (6.0-15.0) H 09/15/24 21:34 BUN 49 mg/dL (7-25) H 09/15/24 21:34 Creatinine 6.29 mg/dL (0.70-1.30) H 09/15/24 21:34 Est GFR (CKD-EPI) 10.806 mL/Min 09/15/24 21:34 Glucose 161 mg/dL (70-100) H 09/15/24 21:34 POC Glucose 158 mg/dl 09/15/24 23:19 POC Glucose Comment 09/15/24 18:57 POC Glucose Comment Cleaned meter 09/15/24 18:57 Lactic Acid 0.6 mmol/L (0.5-1.9) 09/15/24 23:24 Calcium 9.0 mg/dL (8.6-10.3) 09/15/24 21:34 Total Bilirubin 0.6 mg/dl (0.3-1.0) 09/15/24 21:34 AST 26 U/L (13-39) 09/15/24 21:34 ALT 19 U/L (7-52) 09/15/24 21:34 Alkaline Phosphatase 55 U/L (34-104) 09/15/24 21:34 Total Protein 6.9 gm/dL (6.4-8.9) 09/15/24 21:34 Albumin 4.0 gm/dL (3.5-5.7) 09/15/24 21:34 Globulin 2.9 gm/dL 09/15/24 21:34 Albumin/Globulin Ratio 1.4 09/15/24 21:34 SARS-CoV-2 Rap RNA(RT-PCR) Positive (Negative) A 09/15/24 23:44 Microbiology Results Micro: Microbiology - Results from entire visit 09/15/24 23:44 Nasopharyngeal SARS-CoV-2, Influenza & RSV (PCR) - Final Assessment & Plan Assessment/Plan (1) CAP (community acquired pneumonia): (2) COVID-19: (3) Constipation: Plan Community acquired pneumonia Covid 19 - Continue ceftriaxone- pharmacy to dose, azithromycin - Duonebs QID, albuterol as needed - Robitussin as needed - Acetaminophen as needed - Follow blood cultures - Sputum culture Constipation - Senna bid, mag citrate x 1 dose Difficulty with urination- bladder scan as needed, notify provider for volume > 400cc Chronic conditions Diastolic heart failure T1DM ESRD on HD- consult nephrology for dialysis treatment, patient is on // schedule HTN GERD DVT PPx?heparin Diet order?1800 ADA, heart healthy, renal on HD CODE STATUS?full code Dr. Allen Attestation: Patient was personally seen by me on the day of encounter. I reviewed his history and performed keyelements of exam and formulated the plan of care and confirmed the nurse practitioner's note above.Plan of care reflects my direct input. IP vs OBS Justification Based on differential dx, clinical care plan, and risk of adverse events, if untreated, in my clinical judgement this patient requires an acute care setting as: INPATIENT because of an expectation ofan over 2 midnight stay. Estimated length of stay (# of days): 3 Documented By: Brigid Anderson CAR OILER 09/16/24 0323 Signed By: 09/16/24 0357 09/16/24 0503 [facility]01-28-2025 Radiology Diagnostic study note [facility] Main [place]ort [address] [place] [address] CT Scan Report Signed Patient: Yoel Werner MR#: [id number] : 1985 Acct:[id number] Age/Sex: 39 / M ADM Date: 5 Loc: ER Room: Type: [facility] ER Attending Dr: Copies to: Romain Rios DO~ Ordering Provider: Romain Rios DO Date of Service: 09/15/24 CT/CT abdomen pelvis w con: r/o appendictis CT Abdomen and Pelvis withcontrast TECHNIQUE: Axial imaging with 2-D reconstruction.90 Cc Isovue-300. The CT exam was performed using one or more the following dose reduction techniques: Automated exposure control, adjustment of the MA and/or Kv according to patient size, or use of the iterative reconstruction technique. COMPARISON: 10/15/2023 History: Abdominal pain. Nausea and vomiting. LIMITATIONS: None LOWER THORAX and basilar atelectasis LIVER: Unremarkable GALLBLADDER: No gallbladder abnormality identified. BILE DUCTS: No dilatation SPLEEN: Unremarkable PANCREAS: Unremarkable ADRENAL GLANDS: Unremarkable KIDNEYS:Unremarkable AORTA: No abdominal aortic aneurysm identified. Marked atherosclerosis RETROPERITONEUM: No significant retroperitoneal abnormalities identified. MESENTERY:Unremarkable SMALL BOWEL: The small bowel loops are nondistended. APPENDIX: The appendix is normal. COLON: Marked constipation URINARY BLADDER: Urinary bladder is unremarkable. REPRODUCTIVE SYSTEM: Reproductive structures are unremarkable. PNEUMOPERITONEUM: None PERITONEAL FLUID:None BONY STRUCTURES: Unremarkable ABDOMINAL WALL: Unremarkable CT/CT abdomen pelvis w con IMPRESSION: No bowel obstruction. Mild constipation. Impression dictated by: Alec Flynn M.D.09/15/2024 11:16 PM Dictation Location: [facility]- Transcribed By: [facility] 09/15/242315 Dictated By: Alec Flynn DO 09/15/242311 Signed By: 09/15/24 231 [facility]01-21-2025 NoteI saw the patient in the clinic. They understood all the financial responsibilities associated with a kidney transplant and the expense of prescriptions after transplant. This includes all co-pays, deductibles and out of pocket expenses. The patient was instructed to contact me of any insurance or financial changes. My card was given to them for direct contact. The patient was given copies of all information and patient financial responsibility forms they signed.[facility]01-21-2025 NoteCoordinator met with patient for kidney/pancreas transplant evaluation appointment in Transplant clinic today. Explained transplant process and consents with patient. Answered patient questions. Social work, finance and cloth piecer in to see patient. Dr. King in for H&P and transplant plan. Dr. Cardenas in for surgical evaluation. Coordinator provided copy of plan to patient and reviewed it with them. Patient aware further testing needed and to keep transplant team updated. Understanding verbalized by patient. Insurance Writer provided verbal order for patient labs. Work-up Needed-Date of Eval Letter Mailed to patient and faxed to Insurance Writer/ Dialysis Center. Record Center Coordinator provided patient TE folder with education on various transplant consents, the workup process, surgery details, postop expectations, transplant statistics, and living donor information. Answered patient questions and verified understanding.[facility]01-21-2025 NotePre- Transplant Kidney Evaluation Surgery Consultation Chief Complaint Patient presents with Kidney Eval Pancreas Eval PCP: Eusebio Olivares DO Txp Referring: Nancy Haas Preferred Pharmacy: [id number] AT [place] [address] Organ: Kidney/Pancreas Subjective Visit Vitals BP (!) 176/100 (BP Location: Right arm, Patient Position: Sitting, BP Cuff Size: Adult) Pulse 63 Temp 36.7 ???C (98.1 ???F) (Oral) Resp 18 Ht 1.854 m (6' 1 ) Wt 77.8 kg (171 lb 8.3 oz) SpO2 100% BMI 22.63 kg/m??? Smoking Status Former BSA 2 m??? Allergies Allergies Allergen Reactions Ticagrelor Shortness of breath Medication Documentation Review Audit Reviewed by Lesa Hurt MA (Pre Parole Counseling Aide) on 09/08/24 at 0907 Medication Order Taking? Sig Documenting Provider Last Dose Status Accu-Chek Guide Me [place] [facility] [id number] Yes See administration instructions. Historical ProviderMD Taking Active Accu-Chek Guide test strips strip [id number] Yes USE TO TEST FOUR TIMES A DAY DIRECTED Historical ProviderMD Taking Active Accu-Chek Softclix Lancets mis [id number] Yes USE TO TEST BLOOD SUGAR TWICE DAILY Historical ProviderMD Taking Active albuterol 90 mcg/actuation inhaler [id number] Yes 2 puffs. Historical Provider, Taking Active aluminum sulfate-calcium acetate ([place]ome[place]) 952-1,347 mg packet [id number] Yes 1,334 mg. Historical Provider, Taking Active amLODIPine (Norvasc) 5 mg tablet [id number] Yes Take 1 tablet (5 mg) by mouth in the morning. Patient taking differently: Take 10 mg by mouth in the morning. Stephen Lou MD Taking Differently Active aspirin 81 mg chewable tablet [id number] Yes 81 mg in the morning. Historical ProviderMD Taking Active atorvastatin (Lipitor) 80 mg tablet [id number] Yes 80 mg in the morning. Historical Provider, Taking Active azithromycin (Zithromax) 250 mg tablet [id number] No TAKE 1 TABLET ORALLY EVERY 24 HOURS FOR 3 DAYS START 08/30/24 Historical ProviderMD Not Taking Active calcium acetate (Phoslo) 667 mg capsule [id number] Yes Take 1,334 mg by mouth. Historical ProviderMD Taking Active carvedilol (Coreg) 25 mg tablet [id number] Yes Take 25 mg by mouth with breakfast and with evening meal. Historical ProviderMD Taking Active cephalexin (Keflex) 500 mg capsule [id number] No Take 1 capsule by mouth Twice daily at 6am and 6pm. Historical ProviderMD Not Taking Active clopidogrel (Plavix) 75 mg tablet [id number] Yes Take 75 mg by mouth in the morning. Historical ProviderMD Taking Active Dexcom G6 Sensor device [id number] Yes CHANGE SENSOR EVERY 10 DAYS. ICD 10 E10.65 Historical ProviderMD Taking Active Dexcom G6 Transmitter device [id number] Yes CHANGE EVERY 90 DAYS DX E10.65 Historical ProviderMD Taking Active diclofenac (Voltaren) 1 % topical gel [id number] Yes Apply 2 g topically 3 times a day. Historical ProviderMD Taking Active famotidine (Pepcid) 20 mg tablet [id number] Yes 20 mg in the morning. Historical Provider, Taking Active ferric gluconate (Ferrlecit) 62.5 mg/5 mL injection [id number] Yes Infuse 62.5 mg into a venous catheter. Historical Provider, Taking Active furosemide (Lasix) 40 mg tablet [id number] Yes Take 80 mg by mouth two times daily. Historical ProviderMD Taking Active heparin sodium,porcine/PF (heparin, porcine, PF,) 1,000 unit/mL solution [id number] Yes Infuse 1,000 Units into a venous catheter. Historical ProviderMD Taking Active hydrALAZINE (Apresoline) 100 mg tablet [id number] Yes Take 100 mg by mouth two times daily. Historical ProviderMD Taking Active hydrOXYzine HCL (Atarax) 25 mg tablet [id number] Yes Take 25 mg by mouth in the morning. Historical ProviderMD Taking Active hyoscyamine (Anaspaz,Levsin) 0.125 mg tablet [id number] Yes TAKE 1 TABLET BY MOUTH EVERY 6 HOURS NEEDED FOR ABDOMINAL PAIN Historical ProviderMD Taking Active insulin glargine (Lantus) 100 unit/mL (3 mL) injection pen [id number] Yes Inject 20 Units under the skin in the morning. Historical ProviderMD Taking Active insulin lispro (HumaLOG) 100 unit/mL injection pen [id number] Yes Inject 4 times a day before meals & bedtime. [id number]; 170-189=3units; 190-209=4units; 210-229=6units; 230-249=8units; 250-269=9units; 270-289=10units; 290-300=12units; >300=14units & notify provider Historical ProviderMD Taking Active isosorbide mononitrate ER (Imdur) 60 mg 24 hr tablet [id number] Yes Take 60 mg by mouth two times daily. Historical ProviderMD Taking Active lisinopril 20 mg tablet [id number] Yes 20 mg in the morning. Historical ProviderMD Taking Active loratadine (Claritin) 10 mg tablet [id number] Yes Take 10 mg by mouth every other day. Historical ProviderMD Taking Active nitroglycerin (Nitrostat) 0.4 mg SL tablet [id number] Yes 0.4 mg. Historical Provider, Taking Active omep (more content not included)...[facility]01-21-2025 NoteIdentifying Information Name: Yoel Werner : 1985 Assessment date: 09/08/2024 Transplant type: Pancreas Transplant Evaluation - 09/08/2024 Primary language: American Anabaptism/spirituality: Shinto People present at assessment: none Do you have any baptist, ethical or personal objections to accepting blood products, surgery and/or transplant? No Citizenship Where were you born? In the [place], [place] Where do you currently live or are staying? [place] - 1 hour Family Background and Supportive Relationships Parents: Mother- , pancreatic cancer. Father- living, healthy Siblings: 1 sister, healthy Children: Other 4 bio, 1 adoptive, 1 Number of children, living or (UNOS question): 6 Names, age, health status, relationship, address: Sharon, 13, healthy, Óscar Espinozariella, 12, healthy, Óscar Kuldeep, 10, healthy, Óscar Kenney, 9, healthy, Óscar-- had been a twin with son that passed Adoptive son- Jet, 6 Marital/relationship status: Household composition: Lives alone Support / Caregiver Plans Who will be your primary caregiver? 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 Able to drive. Who will be your secondary caregiver(s)? mother and/or father Jake Contact #: [phone] Health status & availability: Healthy, retired, able to drive. Other important supportive relationships: Have you been or are you currently a caregiver for someone else (i.e. children, spouse, parents)? No- young children have additional caregivers Advance Directives Do you have an advance directive? F No, Info Provided - not interested Do you have a DPOA for healthcare or finances? no A living will? no Education given: Yes Education / Employment / Financial Situation Highest education level: Master's Degree Business management Are you still working? No. 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 Unsure Disability Are you on any form of disability? yes What type? SSDI What is the status? Active Financial Status Income per month: $1,600 Income source: SSDI Do you have any current financial concerns? Sanchez killed me about to get electric shut off, food stamps taken away. Is current income adequate to meet monthly needs and current medications? no How do you manage when you do not have enough money during the month? Goes to a food pantry Would you be interested in fundraising information? no Insurance / Resources Payer/Plan Subscriber Name Rel Member # Group # [employer] MEDICARE ADVAN* YOEL WERNER Self [id number] [facility] [address] MEDICAID [facility]* YOEL WERNER Self [id number] [facility] Are you aware of a coordination of benefits with your insurance and Medicare (if applicable)? yes Are you receiving assistance through [facility] [facility] JANAE Program: No Medication Coverage Do you have prescription coverage: Yes What are your medication costs for generic, preferred brand, and non-preferred brand medications? None Indicate medication costs after transplant: Discussed How will you pay for these medications after transplant? Insurance [place] Benefits Have you served in the ? No Understanding of Medical Situation What is your primary diagnosis? Covid and heart attack - 2019 When did you become aware of your diagnosis? 2019 Do you have any other health issues? yes - DM, HTN, blind in L eye Dialysis center, schedule, type, and start date (if applicable): Dialysis History Start End Type Center Comments 03/01/2023 Hemo [facility] Dialysis Center Information [facility] Address: [address] [place] [address], [facility] [address] Dialysis Schedule: MWF 7am- 3.5 hours, 2-4kg pulled Treatment Compliance / Adherence How do you manage your medications now? Memory and Pillbox Do you have any difficulties in getting or taking your medications? Now using 6Sense ramy plus, no issues so far Do you know what you take and what they are for?: Yes Have you ever changed the way you take a medication without talking to the doctor? no Do you adhere to your diet? Yes - renal diet based on labs Do you adhere to your fluid restrictions? Allowed 40oz per day, hard to follow Do you adhere to your dialysis attendence/schedule? Yes What has your relationship been like with your medical providers? Good relationships Do you have chronic pain? No. Knowledge & Understanding of Transplant Process Tell me a little about what you understand about transplant. Watch diet, take medications, labs, appts, call if something is wrong What do you know about the r (more content not included)...[facility]01-21-2025 NotePre-Transplant Evaluation Nephrology Consult Chief Complaint Patient presents with Kidney Eval Pancreas Eval PCP: Eusebio Olivares, DO Txp Referring: Nancy Haas Preferred Pharmacy: [facility]/pharmacy #[id number] AT [place] [address] Organ: Kidney/Pancreas Subjective Visit Vitals BP (!) 176/100 (BP Location: Right arm, Patient Position: Sitting, BP Cuff Size: Adult) Pulse 63 Temp 36.7 ???C (98.1 ???F) (Oral) Resp 18 Ht 1.854 m (6' 1 ) Wt 77.8 kg (171 lb 8.3 oz) SpO2 100% BMI 22.63 kg/m??? Smoking Status Former BSA 2 m??? Allergies Allergen Reactions Ticagrelor Shortness of breath Medication Documentation Review Audit Reviewed by Lesa Hurt MA (Pre Parole Counseling Aide) on 09/08/24 at 0907 Medication Order Taking? Sig Documenting Provider Last Dose Status Accu-Chek Guide Me Glucose Mtr mis [id number] Yes See administration instructions. Historical Provider, Taking Active Accu-Chek Guide test strips strip [id number] Yes USE TO TEST FOUR TIMES A DAY DIRECTED Historical Provider, Taking Active Accu-Chek Softclix Lancets misc [id number] Yes USE TO TEST BLOOD SUGAR TWICE DAILY Historical Provider, Taking Active albuterol 90 mcg/actuation inhaler [id number] Yes 2 puffs. Historical Provider, Taking Active aluminum sulfate-calcium acetate ([place]) 952-1,347 mg packet [id number] Yes 1,334 mg. Historical Provider, Taking Active amLODIPine (Norvasc) 5 mg tablet [id number] Yes Take 1 tablet (5 mg) by mouth in the morning. Patient taking differently: Take 10 mg by mouth in the morning. Stephen Lou MD Taking Differently Active aspirin 81 mg chewable tablet [id number] Yes 81 mg in the morning. Historical MD Ramo Taking Active atorvastatin (Lipitor) 80 mg tablet [id number] Yes 80 mg in the morning. Historical MD Ramo Taking Active azithromycin (Zithromax) 250 mg tablet [id number] No TAKE 1 TABLET ORALLY EVERY 24 HOURS FOR 3 DAYS START 08/30/24 Historical MD Ramo Not Taking Active calcium acetate (Phoslo) 667 mg capsule [id number] Yes Take 1,334 mg by mouth. Historical ProviderMD Taking Active carvedilol (Coreg) 25 mg tablet [id number] Yes Take 25 mg by mouth with breakfast and with evening meal. Lexis Ralph MD Taking Active cephalexin (Keflex) 500 mg capsule [id number] No Take 1 capsule by mouth Twice daily at 6am and 6pm. Lexis Ralph MD Not Taking Active clopidogrel (Plavix) 75 mg tablet [id number] Yes Take 75 mg by mouth in the morning. Historical MD Ramo Taking Active Dexcom G6 Sensor device [id number] Yes CHANGE SENSOR EVERY 10 DAYS. ICD 10 E10.65 Historical MD Ramo Taking Active Dexcom G6 Transmitter device [id number] Yes CHANGE EVERY 90 DAYS DX E10.65 Historical MD Ramo Taking Active diclofenac (Voltaren) 1 % topical gel [id number] Yes Apply 2 g topically 3 times a day. Historical MD Ramo Taking Active famotidine (Pepcid) 20 mg tablet [id number] Yes 20 mg in the morning. Historical ProviderMD Taking Active ferric gluconate (Ferrlecit) 62.5 mg/5 mL injection [id number] Yes Infuse 62.5 mg into a venous catheter. Historical MD Ramo Taking Active furosemide (Lasix) 40 mg tablet [id number] Yes Take 80 mg by mouth two times daily. Lexis Ralph MD Taking Active heparin sodium,porcine/PF (heparin, porcine, PF,) 1,000 unit/mL solution [id number] Yes Infuse 1,000 Units into a venous catheter. Lexis Ralph MD Taking Active hydrALAZINE (Apresoline) 100 mg tablet [id number] Yes Take 100 mg by mouth two times daily. Historical ProviderMD Taking Active hydrOXYzine HCL (Atarax) 25 mg tablet [id number] Yes Take 25 mg by mouth in the morning. Historical ProviderMD Taking Active hyoscyamine (Anaspaz,Levsin) 0.125 mg tablet [id number] Yes TAKE 1 TABLET BY MOUTH EVERY 6 HOURS NEEDED FOR ABDOMINAL PAIN Historical MD Ramo Taking Active insulin glargine (Lantus) 100 unit/mL (3 mL) injection pen [id number] Yes Inject 20 Units under the skin in the morning. Historical ProviderMD Taking Active insulin lispro (HumaLOG) 100 unit/mL injection pen [id number] Yes Inject 4 times a day before meals & bedtime. [id number]; 170-189=3units; 190-209=4units; 210-229=6units; 230-249=8units; 250-269=9units; 270-289=10units; 290-300=12units; >300=14units & notify provider Historical MD Ramo Taking Active isosorbide mononitrate ER (Imdur) 60 mg 24 hr tablet [id number] Yes Take 60 mg by mouth two times daily. Historical ProviderMD Taking Active lisinopril 20 mg tablet [id number] Yes 20 mg in the morning. Historical ProviderMD Taking Active loratadine (Claritin) 10 mg tablet [id number] Yes Take 10 mg by mouth every other day. Historical ProviderMD Taking Active nitroglycerin (Nitrostat) 0.4 mg SL tablet [id number] Yes 0.4 mg. Historical ProviderMD Taking Active omeprazole (PriLOSEC) 40 (more content not included)...[facility]01-21-2025 NoteTransplant Nutrition Assessment Name: Yoel Werner : 1985 Assessment date: 09/08/2024 PMH: ischemic cardiomyopathy, DM, anasarca, anemia, ESRD, [place], HLD, HTN. Dialysis HX: on HD Height: 185.4cm Weight: 77.8kg BMI Classification: Normal range (18.5 - 24.99)Body mass index is 22.63 kg/m???. Appetite: Poor. Still eating about once a day. Patient reports weight loss 22# since February last year when he started dialysis . Sometimes will avoid hot foods(temperature) foods to avoid vomiting. Also reports being constipated. (Not on medications for this). Weight increase 6.4kg since June due to being given steroids after having PNA. His weight was 71.4kg. Was eating more and drinking more. Was craving salty foods. Is getting extra dialysis treatments to help remove extra fluids. Context: UBW was 180#. Weight usually fluctuates 69kg to 74kg at dialysis. Current diet: Takes 4kg off at dialysis treatments, he reports that he has a hard time controlling his water intake. Diet- low processed, sodium foods. Though per diet recall, his diet is very high in sodium. Low phosphorus. Loves bananas. Nutrition/Diet: Most meals eaten at home. Lives by himself and does his own cooking. Diabetes Management: Now has a [employer] 3 CGM. On lantus 20units and humalog SS. Reports having lots of highs and lows, PCP manages his DM, he does not have an collections curator. A1C 8.1% 07/14/24 (he thinks this is due to being on steroids on not having a CGM at the time). Diet Recall Breakfast: Skips or sometimes will have eggs Lunch: Snacks on pretzels, applesauce, turkey and cheese Dinner: spaghettios, ramen noodles. Pizzas. Chicken breast. Potatoes. Pasta, bread. No vegetables. Snacks: occasional little josh snack Drinks: water and diet soda Supplements: Denies at this time due to causing constipation Dietary & Physical Activity Compliance: -Activity: Walks around his apartment, no exercise regimen -Diet:Does not comply with low sodium diet., Does not comply with diabetic diet., and Does not comply to free water restrictions. Diet is low in fruits and vegetables. High in processed foods. Appears in adequate in protein. Reported Medications/Supplements: phoslo Nutrition Labs: phos 4.2, states albumin is WNL Nutrition Social History: He reports his food stamps were taken away because his disability amount went up. Eats Canned foods and ramen noodles often due to cost of food. Associated Symptoms: Constipation (denies taking stool softeners and laxatives, uses suppositories PRN), Missing some bottom teeth Skin Appearance: ok Nutrition Risk: moderate Patient Goals: Diet: Follow meal plan given and portion control., Glycemic control., Increase fiber., Increase fruits., Increase vegetables., and limit processed foods. Exercise: 30 minutes physical activity most days of the week. Notes: Original evaluation for kidney transplant 07/14/24, reevaluation today for pancreas transplant. The patient has a poor diet. He is eating canned food, ramen noodles and sweets. Diet is low in protein, fruits and vegetables. Appears to have food insecurity issues (no longer receives food stamps). Complains of chronic constipation and vomiting when eating any hot (temp) foods. A1C 8.1%. Does not follow with an collections curator. -Patient has questionable compliance issues. -RD discussed the importance of good blood sugar control and he needs to follow a diabetic diet. Discussed eating three meals daily, including more protein sources, fruits and vegetables. Patient was not interested in diet education. -Recommend A1C <8%, consider referral to an collections curator. -Consider referral to a GI doctor due to chronic constipation and frequent vomiting to rule out gastroparesis. Mary Sullivan [facility]-2025 NoteDate of Telehealth Visit: 09/01/2024 Pre transplant evaluation HPI The visit was conducted [id number] with the use of audio and video technology using HIPAA approved [employer] System between patient and the provider for a virtual visit. Verbal consent to provide and bill this service was obtained on: 09/01/24 Patient Location: Patient Home I spent 14 minutes of total time on the day of the visit. This time was spent preparing for the visit, obtaining and reviewing any outside history/data, taking a history, performing an exam/evaluation, counseling and educating patient/family about the diagnosis and plan, performing medical decision making, referring to and communicating with other health care referrals, independently interpreting results and documenting in the EMR, and coordinating care. Please see the additional documentation in this note for specific details. Mr. 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 He three kids that come and visit. No hx of severe infections or antibiotics allergies. No hx of known TB exposure, or intermediate time No volunteering at shelters, no gardening or fishing Recent RSV infection no hospitalization, mild illness ROS negative except what's mentioned in HPI Physical exam: limited due to video visit Assessment and plan ESRD Pre transplant evaluation Immunization counseling The following serology reviewed Negative: HIV, hepatitis C antibodies, Quantiferon TB, CMV IgG, hepatitis B surface antigen Positive: varicella and MMR IgG, EBV VCA IgG Recommend Re vaccinate with hepatitis B vaccines, and the rest of vaccines listed down, patient is deferring receiving any vaccine at this time, benefits and risks were explained to him Advised to wear mask whenever in crowed places, healthcare/clinic visits and damien in the first 6 months of transplant Patient has three cats, the little one is young and could be a source of infection, he is willing to give that one to a friend, he is advised not to handle the cat litter and not to store it in the same room he spends most of his time NOTE: All vaccines should ideally be given prior to transplantation. Live vaccines are contraindicated following transplantation. If non-live vaccines are given after transplantation this should occur 6 months after transplantation while on stable immunosuppression to maximize immune system response. Vaccinations There is no immunization history on file for this patient. -- Hepatitis B: repeat series -- Influenza vaccine: due -- Tdap vaccine: due -- Pneumococcal 20V vaccine: due -- Shingrix: due -- COVID-19: due -- VZV: immune -- MMR: immune Stay safe after a transplant : It's important to stay safe and prevent infections after getting a transplant, here are some guidance to help lower your chances of getting an infection: How to prevent contact illness --- Sickness What to Do: Wash your hands after you: - Touch or clean up pets/animals - Before you eat - Before and after you touch a wound Use bleach wipes to clean the house if someone has diarrhea Clean cuts and abrasions right away Wear gloves if you changing diapers and wash hands right away when you're done What not to do: X do not go barefoot outside Prevent airway infections: What to Do: Avoid close contact with anyone sick with respiratory illness , if must have a contact both of you should wear a surgical mask Avoid crowded places , damien in fall and winter seasons, if must be in crowded places wear a mask Avoid jobs that puts you at risk for infections such as prisons, homeless shelters, construction, animal care settings, landscaping, gardening. Talk to your team if you cannot avoid these jobs/places What not to do : X do not vape or smoke X do not go near soil mulch, birds dropping, chicken coops or caves (the might have some mold that could cause you an infection that wouldn't happen in someone who didn't get transplanted) X do not go near construction sites, places with a lot of dust such as home remodeling X do not clean roof gutters Water safety: What to do: Boil water before using it or use bottled water instead Clean up standing water quickly to avoid mold Use bottled water when you travel for brushing your teeth or drinking What not to do: X Do not drink water from lakes, saenz or garden hose X Do not go in lakes, public pools, (more content not included)...[facility]01-11-2025 Progress note Author Angel Mejía [facility] Note Date/Time August 29, 2024 1 1:29am [facility] [address] [place] [address] Nephrology Progress Note Signed Patient: Yoel Werner MR#: [id number] : 1985 Acct:[id number] Age/Sex: 39 / M Adm Date: 5 Loc: Room: [address] [place] [address] Type: ADM IN Attending Dr: Law Cano MD Copies to: ~ Date of Service: 08/29/2024 Subjective Subjective Narrative: This is a 39-year-old male with a medical history of ESRD on hemodialysis, DM, CHF, CAD s/p multiple PCI, HTN, COPD, anemia of renal disease, HLD and recent RSV infection was presented to the emergency room for cough with hemoptysis. Patient was recently diagnosed with to have RSV about 2 weeks ago. In the emergency room patient was evaluated and had a chest x-ray which was airspace disease possibly pneumonia versus pulmonary edema. Patient was admitted for further workup. Patient has a known history of ESRD due to the diabetic nephropathy and hypertensive nephrosclerosis. [facility]. He has a AV fistula as a dialysisaccess. Patient is due for dialysis today. No nephrology is consulted for ESRDmanagement during his hospital stay. Interim history Patient was seen and examined at bedside. He is currently receiving hemodialysis. He reported that this morning his blood sugar went down. Denies any chest pain palpation cough nausea vomiting diarrhea shortness of breath. Hehad a hemodialysis yesterday tolerated well. Exam Physical Exam Vital Signs: Temp Pulse Resp BP Pulse Ox O2 Del Method 97 F L 70 18 154/85 H 100 Room Air 08/29/24 10:40 08/29/24 10:50 08/29/24 10:40 08/29/24 10:50 08/29/24 10:40 08/29/24 10:40 Narrative: General: Appears comfortable and not in distress Heart: S1-S2, no rub Lung: Bilateral air entry, no wheezing or crackles Abdomen: Soft, positive bowel sounds Extremities: No edema, no cyanosis Head: Atraumatic, normocephalic Ear: No gross hearing Deficit or external ear redness Eyes: No pallor or redness Neck: No JVD or visible mass Skin: No rashes , warm to touch DROP FORGE HAND: Awake,Alert, following simple command Musculoskeletal: No swelling or limitation of movement of the large joints Psychiatric: Cooperative, normal mood and affect Objective Intake and Output I&O: Intake & Output 08/26/24 08/27/24 08/28/24 08/29/24 23:59 23:59 23:59 23:59 Intake Total 1040 / 1040 850 / 850 Output Total 4500 / 4500 Balance -3460 / -3460 850 / 850 Weight 77.111 kg 82 kg 78 kg Meds and Allergies Meds: Active Medications Acetaminophen (Acetaminophen 500 Mg Tablet) 1,000 mg PO Q6H PRN PRN Reason: Fever or Pain Stop: 08/28/25 23:20 Albuterol (Albuterol Neb 2.5 Mg/3 Ml Vial.Neb) 2.5 mg INHALATION Q2H PRN PRN Reason: Shortness Of Breath Or Wheezing Stop: 08/28/25 03:15 Albuterol/Ipratropium (Ipratropium/Albuterol 0.5-3 Mg 3 Ml Ampul.Neb) 3 ml INHALATION QID.RESP [facility] Stop: 08/28/25 07:59 Last Admin: 08/29/24 08:29 Dose: 3 ml Amlodipine Besylate (Amlodipine 2.5 Mg Tablet) 2.5 mg PO DAILY [facility] Stop: 08/28/25 08:59 Last Admin: 08/29/24 09:32 Dose: Not Given Aspirin (Aspirin 81 Mg Tab.Chew) 81 mg PO QAM [facility] Stop: 08/28/25 08:59 Last Admin: 08/29/24 09:32 Dose: Not Given Atorvastatin Calcium (Atorvastatin 80 Mg Tablet) 80 mg PO QPM [facility] Stop: 08/28/25 20:59 Last Admin: 08/28/24 21:10 Dose: 80 mg Azithromycin (Azithromycin 250 Mg Tablet) 250 mg PO Q24H [facility] Last Admin: 08/28/24 22:53 Dose: 250 mg Calcium Acetate (Calcium Acetate 667 Mg Capsule) 1,334 mg PO TID.WITH.MEALS [facility] Stop: 08/28/25 11:59 Last Admin: 08/29/24 07:45 Dose: 1,334 mg Carvedilol (Carvedilol 25 Mg Tablet) 25 mg PO BID.WITH.MEALS [facility] Stop: 08/28/25 07:59 Last Admin: 08/29/24 07:45 Dose: 25 mg Ceftriaxone Sodium (Ceftriaxone 1 Gm/10 Ml Syringe) 1 gm IV-PUSH DAILY@0100 [facility] Last Admin: 08/29/24 01:18 Dose: 1 gm Dextrose (Dextrose 50% In Water 25 Gm/50 Ml Syringe) 0 gm IV-PUSH PRN PRN PRN Reason: Hypoglycemia Stop: 08/28/25 03:22 Last Admin: 08/29/24 11:18 Dose: 25 gm Epoetin Alexus (Epoetin Alexus (Esrd Use) 20,000 Unit/Ml Vial) 10,000 unit IV-PUSH MoWeFr@0900 [facility]; Protocol Stop: 08/28/25 08:59 Last Admin: 08/28/24 10:44 Dose: 10,000 unit Furosemide (Furosemide 80 Mg Tablet) 80 mg PO BID@0800,1600 [facility] Stop: 08/28/25 07:59 Last Admin: 08/29/24 07:44 Dose: 80 mg Glucose (Dextrose 40% Gel 15 Gm Tube) 0 gm PO PRN PRN PRN Reason: Hypoglycemia Stop: 08/28/25 03:22 Guaifenesin (Guaifenesin 600 Mg Tab.Er.12h) 1,200 mg PO BID PRN PRN Reason: Congestion Stop: 08/28/25 03:28 Heparin Sodium (Porcine) (Heparin 10,000 Unit/10 Ml Vial) 2,000 unit IV PRN PRN PRN Reason: Dialysis Stop: 08/28/25 08:48 Hydralazine HCl (Hydralazine 50 Mg Tablet) 100 mg PO BID [facility] Stop: 08/28/25 08:59 Last Admin: 08/29/24 09:32 Dose: Not Given Sodium Chloride (0.9% Sodium Chloride 1,000 Ml) 1,000 mls @ 0 mls/hr MISCELLANE.Q0M PRN PRN Reason: Dialysis Stop: 08/28/25 08:48 Last Infusion: 08/29/24 10:54 Dose: Infused Insulin Aspart (Insulin Aspart 300 Units/3 Ml) 0 units SUBCUT TID.[facility]; Protocol Stop: 08/28/25 07:59 Last Admin: 08/29/24 07:45 Dose: 12 units Insulin Glargine (Insulin Glargine 300 Units/3 Ml Insuln.Pen) 20 units SUBCUT HS [facility] Stop: 08/28/25 08:59 Isosorbide Mononitrate (Isosorbide Mononitrate 24hr Er 60 Mg Tab.Er.24h) 60 mg PO BID [facility] Stop: 08/28/25 08:59 Last Admin: 08/29/24 10:06 Dose: Not Given Lisinopril (Lisinopril 20 Mg Tablet) 20 mg PO DAILY [facility] Stop: 08/28/25 08:59 Last Admin: 08/29/24 10:06 Dose: Not Given Nitroglycerin (Nitroglycerin 0.4 Mg Tab.Subl) 0.4 mg SUBLINGUAL Q5MIN.X3 PRN PRN Reason: Chest Pain Stop: 08/28/25 04:53 Pantoprazole Sodium (Pantoprazole 40 Mg Tablet.Dr) 40 mg PO BID [facility] Stop: 08/28/25 08:59 Last Admin: 08/29/24 10:06 Dose: Not Given Paricalcitol (Paricalcitol 10 Mcg/2 Ml Vial) 5 mcg IV-PUSH MoWeFr@0900 [facility] Stop: 08/28/25 08:59 Last Admin: 08/28/24 10:43 Dose: 5 mcg Saccharomyces Boulardii (Saccharomyces Boulardii 250 Mg Capsule) 250 mg PO BID.WITH.MEALS [facility] Stop: 08/28/25 07:59 Last Admin: 08/29/24 07:44 Dose: 250 mg Sertraline HCl (Sertraline 100 Mg Tablet) 100 mg PO DAILY [facility] Stop: 08/28/25 08:59 Last Admin: 08/29/24 10:06 Dose: Not Given Sodium Chloride (Sodium Chloride 0.9 % 10 Ml Syringe) 0 ml IV-PUSH PRN PRN PRN Reason: Flush Stop: 08/27/25 21:46 Last Admin: 08/29/24 01:18 Dose: 10 ml Sodium Chloride (Sodium Chloride 0.9 % 10 Ml Syringe) 0 ml IV-PUSH PRN PRN PRN Reason: Flush Stop: 08/28/25 08:48 Last Admin: 08/29/24 10:53 Dose: 10 ml Tramadol HCl (Tramadol 50 Mg Tablet) 50 mg PO Q12H PRN PRN Reason: Pain Scale 6 - 10 Stop: 02/24/25 23:20 Last Admin: 08/28/24 23:55 Dose: 50 mg Allergies ticagrelor (From Brilinta) Allergy (Verified 08/28/24 07:57) shortness of breath Results - Nephrology Labs 08/27/24 23:42 08/27/24 23:42 Radiology Impressions Impressions - last 24 hours: Any impression(s) listed above is documentation that was entered by the reading physician into a diagnostic report(s) for Yoel Werner. I have reviewed the report(s) and am incorporating any findings in the treatment plan of this patient where applicable. 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 Currently goes to the [place] dialysis 3 times a week on MWF schedule. (2) Cough with hemoptysis: Assessment/Problem Details: Patient with new cough with hemoptysis. His chest x-ray showed airspace diseasepossibly pneumonia versus pulm edema. (3) Hypertensive CKD, ESRD on dialysis: Assessment/Problem Details: His blood pressure is high and he appears to be hypervolemic. He has a large intradialytic weight gain despite education due to the noncompliance. He takes Lasix, amlodipine, hydralazine, lisinopril and carvedilol. (4) Anemia of renal disease: Assessment/Problem Details: His hemoglobin is within the goal. He receives Epogen with dialysis. (5) Secondary hyperparathyroidism: Assessment/Problem Details: He has a secondary hyperparathyroidism due to the ESRD and hyperphosphatemia. Currently takes calcium acetate. He also receives IV Zemplar with hemodialysis. (6) Type 2 diabetes mellitus with diabetic chronic kidney disease: Assessment/Problem Details: He has insulin-dependent type 2 diabetes mellitus and takes insulin glargine at home. Plan * Will do another session of hemodialysis today for ultrafiltration as he is still above his target weight. * Continue pneumonia management as per the primary team. * Continue home dose of the antihypertensive medication including amlodipine, carvedilol, lisinopril, hydralazine and Lasix. * Continue home dose of the calcium acetate * Will continue outpatient dose of the Epogen 10,000 unit once weekly with dialysis. * Will continue outpatient dose of the IV Zemplar 5 mcg 3 times a week with dialysis. * Continue DM management as per the primary hospitalist team. Adjust insulin as needed to keep the blood sugar between 100 to 150 mg/dL. * Check renal function daily and monitor for output * Documented By: Angle Mejía MD 08/29/241127 Signed By: <Electronically signed by Angel Mejía MD> 08/29/24 112 [facility] Work Phone: [phone]) 316-718701-11-2025 [place] [id number] Nephrology Progress Note Signed Patient: Yoel Werner MR#: [id number] : 1985 Acct:[id number] Age/Sex: 39 / M Adm Date: 5 Loc: Room: 2H4577-9 Type: ADM IN Attending Dr: Law Cano MD Copies to: ~ Date of Service: 08/29/2024 Subjective Subjective Narrative: This is a 39-year-old male with a medical history of ESRD on hemodialysis, DM, CHF, CAD s/p multiple PCI, HTN, COPD, anemia of renal disease, HLD and recent RSV infection was presented to the emergency room for cough with hemoptysis. Patient was recently diagnosed with to have RSV about 2 weeks ago. In the emergency room patient was evaluated and had a chest x-ray which was airspace disease possibly pneumonia versus pulmonary edema. Patient was admitted for further workup. Patient has a known history of ESRD due to the diabetic nephropathy and hypertensive nephrosclerosis. [facility]. He has a AV fistula as a dialysisaccess.Patient is due for dialysis today. No nephrology is consulted for ESRDmanagement during his hospital stay. Interim history Patient was seen and examined at bedside. He is currently receiving hemodialysis. He reported that this morning his blood sugar went down. Denies any chest pain palpation cough nausea vomiting diarrhea shortness of breath. Hehad a hemodialysis yesterday tolerated well. Exam Physical Exam Vital Signs: Temp Pulse Resp BP Pulse Ox O2 Del Method 97 F L 70 18 154/85 H 100 Room Air 08/29/24 10:40 08/29/24 10:50 08/29/24 10:40 08/29/24 10:50 08/29/24 10:40 08/29/24 10:40 Narrative: General: Appears comfortable and not in distress Heart: S1-S2, no rub Lung: Bilateral air entry, no wheezing or crackles Abdomen: Soft, positive bowel sounds Extremities: No edema, no cyanosis Head: Atraumatic, normocephalic Ear: No gross hearing Deficit or external ear redness Eyes: No pallor or redness Neck: No JVD or visible mass Skin: No rashes , warm to touch DROP FORGE HAND: Awake,Alert, following simple command Musculoskeletal: No swelling or limitation of movement of the large joints Psychiatric: Cooperative, normal mood and affect Objective Intake and Output I&O: Intake & Output 08/26/24 08/27/24 08/28/24 08/29/24 23:59 23:59 23:59 23:59 Intake Total 1040 / 1040 850 / 850 Output Total 4500 / 4500 Balance -3460 / -3460 850 / 850 Weight 77.111 kg 82 kg 78 kg Meds and Allergies Meds: Active Medications Acetaminophen (Acetaminophen 500 Mg Tablet) 1,000 mg PO Q6H PRN PRN Reason: Fever or Pain Stop: 08/28/25 23:20 Albuterol (Albuterol Neb 2.5 Mg/3 Ml Vial.Neb) 2.5 mg INHALATION Q2H PRN PRN Reason: Shortness Of Breath Or Wheezing Stop: 08/28/25 03:15 Albuterol/Ipratropium (Ipratropium/Albuterol 0.5-3 Mg 3 Ml Ampul.Neb) 3 ml INHALATION QID.RESP [facility] Stop: 08/28/25 07:59 Last Admin: 08/29/24 08:29 Dose: 3 ml Amlodipine Besylate (Amlodipine 2.5 Mg Tablet) 2.5 mg PO DAILY [facility] Stop: 08/28/25 08:59 Last Admin: 08/29/24 09:32 Dose: Not Given Aspirin (Aspirin 81 Mg Tab.Chew) 81 mg PO QAM [facility] Stop: 08/28/25 08:59 Last Admin: 08/29/24 09:32 Dose: Not Given Atorvastatin Calcium (Atorvastatin 80 Mg Tablet) 80 mg PO QPM [facility] Stop: 08/28/25 20:59 Last Admin: 08/28/24 21:10 Dose: 80 mg Azithromycin (Azithromycin 250 Mg Tablet) 250 mg PO Q24H [facility] Last Admin: 08/28/24 22:53 Dose: 250 mg Calcium Acetate (Calcium Acetate 667 Mg Capsule) 1,334 mg PO TID.WITH.MEALS [facility] Stop: 08/28/25 11:59 Last Admin: 08/29/24 07:45 Dose: 1,334 mg Carvedilol (Carvedilol 25 Mg Tablet) 25 mg PO BID.WITH.MEALS [facility] Stop: 08/28/25 07:59 Last Admin: 08/29/24 07:45 Dose: 25 mg Ceftriaxone Sodium (Ceftriaxone 1 Gm/10 Ml Syringe) 1 gm IV-PUSH DAILY@0100 [facility] Last Admin: 08/29/24 01:18 Dose: 1 gm Dextrose (Dextrose 50% In Water 25 Gm/50 Ml Syringe) 0 gm IV-PUSH PRN PRN PRN Reason: Hypoglycemia Stop: 08/28/25 03:22 Last Admin: 08/29/24 11:18 Dose: 25 gm Epoetin Alexus (Epoetin Alexus (Esrd Use) 20,000 Unit/Ml Vial) 10,000 unit IV-PUSH MoWeFr@0900 [facility]; Protocol Stop: 08/28/25 08:59 Last Admin: 08/28/24 10:44 Dose: 10,000 unit Furosemide (Furosemide 80 Mg Tablet) 80 mg PO BID@0800,1600 [facility] Stop: 08/28/25 07:59 Last Admin: 08/29/24 07:44 Dose: 80 mg Glucose (Dextrose 40% Gel 15 Gm Tube) 0 gm PO PRN PRN PRN Reason: Hypoglycemia Stop: 08/28/25 03:22 Guaifenesin (Guaifenesin 600 Mg Tab.Er.12h) 1,200 mg PO BID PRN PRN Reason: Congestion Stop: 08/28/25 03:28 Heparin Sodium (Porcine) (Heparin 10,000 Unit/10 Ml Vial) 2,000 unit IV PRN PRN PRN Reason: Dialysis Stop: 08/28/25 08:48 Hydralazine HCl (Hydralazine 50 Mg Tablet) 100 mg PO BID [facility] Stop: 08/28/25 08:59 Last Admin: 08/29/24 09:32 Dose: Not Given Sodium Chloride (0.9% Sodium Chloride 1,000 Ml) 1,000 mls @ 0 mls/hr MISCELLANE.Q0M PRN PRN Reason: Dialysis Stop: 08/28/25 08:48 Last Infusion: 08/29/24 10:54 Dose: Infused Insulin Aspart (Insulin Aspart 300 Units/3 Ml) 0 units SUBCUT TID.[facility]; Protocol Stop: 08/28/25 07:59 Last Admin: 08/29/24 07:45 Dose: 12 units Insulin Glargine (Insulin Glargine 300 Units/3 Ml Insuln.Pen) 20 units SUBCUT [facility] Stop: 08/28/25 08:59 Isosorbide Mononitrate (Isosorbide Mononitrate 24hr Er 60 Mg Tab.Er.24h) 60 mg PO BID [facility] Stop: 08/28/25 08:59 Last Admin: 08/29/24 10:06 Dose: Not Given Lisinopril (Lisinopril 20 Mg Tablet) 20 mg PO DAILY [facility] Stop: 08/28/25 08:59 Last Admin: 08/29/24 10:06 Dose: Not Given Nitroglycerin (Nitroglycerin 0.4 Mg Tab.Subl) 0.4 mg SUBLINGUAL Q5MIN.X3 PRN PRN Reason: Chest Pain Stop: 08/28/25 04:53 Pantoprazole Sodium (Pantoprazole 40 Mg Tablet.Dr) 40 mg PO BID [facility] Stop: 08/28/25 08:59 Last Admin: 08/29/24 10:06 Dose: Not Given Paricalcitol (Paricalcitol 10 Mcg/2 Ml Vial) 5 mcg IV-PUSH MoWeFr@0900 [facility] Stop: 08/28/25 08:59 Last Admin: 08/28/24 10:43 Dose: 5 mcg Saccharomyces Boulardii (Saccharomyces Boulardii 250 Mg Capsule) 250 mg PO BID.WITH.MEALS [facility] Stop: 08/28/25 07:59 Last Admin: 08/29/24 07:44 Dose: 250 mg Sertraline HCl (Sertraline 100 Mg Tablet) 100 mg PO DAILY [facility] Stop: 08/28/25 08:59 Last Admin: 08/29/24 10:06 Dose: Not Given Sodium Chloride (Sodium Chloride 0.9 % 10 Ml Syringe) 0 ml IV-PUSH PRN PRN PRN Reason: Flush Stop: 08/27/25 21:46 Last Admin: 08/29/24 01:18 Dose: 10 ml Sodium Chloride (Sodium Chloride 0.9 % 10 Ml Syringe) 0 ml IV-PUSH PRN PRN PRN Reason: Flush Stop: 08/28/25 08:48 Last Admin: 08/29/24 10:53 Dose: 10 ml Tramadol HCl (Tramadol 50 Mg Tablet) 50 mg PO Q12H PRN PRN Reason: Pain Scale 6 - 10 Stop: 02/24/25 23:20 Last Admin: 08/28/24 23:55 Dose: 50 mg Allergies ticagrelor (From Brilinta) Allergy (Verified 08/28/24 07:57) shortness of breath Results - Nephrology Labs 08/27/24 23:42 08/27/24 23:42 Radiology Impressions Impressions - last 24 hours: Any impression(s) listed above is documentation that was entered by the reading physician into a diagnostic report(s) for Yoel Werner. I have reviewed the report(s) and am incorporating any findings in the treatment plan of this patient where applicable. 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 Currently goes to the [place] dialysis 3 times a week on MWF schedule. (2) Cough with hemoptysis: Assessment/Problem Details: Patient with new cough with hemoptysis. His chest x-ray showed airspace diseasepossibly pneumonia versus pulm edema. (3) Hypertensive CKD, ESRD on dialysis: Assessment/Problem Details: His blood pressure is high and he appears to be hypervolemic. He has a large intradialytic weight gain despite education due to the noncompliance. He takes Lasix, amlodipine, hydralazine, lisinopril and carvedilol. (4) Anemia of renal disease: Assessment/Problem Details: His hemoglobin is within the goal. He receives Epogen with dialysis. (5) Secondary hyperparathyroidism: Assessment/Problem Details: He has a secondary hyperparathyroidism due to the ESRD and hyperphosphatemia. Currently takes calcium acetate. He also receives IV Zemplar with hemodialysis. (6) Type 2 diabetes mellitus with diabetic chronic kidney disease: Assessment/Problem Details: He has insulin-dependent type 2 diabetes mellitus and takes insulin glargine at home. Plan * Will do another session of hemodialysis today for ultrafiltration as he is still above his targetweight. * Continue pneumonia management as per the primary team. * Continue home dose of the antihypertensive medication including amlodipine, carvedilol, lisinopril, hydralazine and Lasix. * Continue home dose of the calcium acetate * Will continue outpatient dose of the Epogen 10,000 unit once weekly with dialysis. * Will continue outpatient dose of the IV Zemplar 5 mcg 3 times a week with dialysis. * Continue DM management as per the primary hospitalist team. Adjust insulin as needed to keep the blood sugar between 100 to 150 mg/dL. * Check renal function daily and monitor for output * Documented By: Angel Mejía MD 08/29/24 1128 Signed By: 08/29/24 1129 [facility]01-11-2025 Progress note Author Law Cano [facility] Note Date/Time August 29, 2024 1 :23am [facility] [address] [place] [address] Hospitalist Progress Note Signed Patient: Yoel Werner MR#: [id number] : 1985 Acct:[id number] Age/Sex: 39 / M Adm Date: 5 Loc: 3T Room: [address] [place] [address] Type: ADM IN Attending Dr: Law Cano MD Copies to: ~ Date of Service: 08/28/2024 Subjective Subjective Narrative: Assessment And Plan 39M with a PMH of HTN, HLD, DM, ESRD on HD, CAD s/p stents, combined systolic and diastolic heart failure, recent RSV infection the presents emergency room tonight for complaints of hemoptysis Possible Bacterial PNA hemoptysis He still has cough with sputum tinged with blood but better . he p/w hemoptysis. he is afebrile and hemodynamically stable. there is no leukocytosis Lactic acid wnl BNP up to 4000 Blood culture is negative COVID-19 / Flu A/B / RSV PCR negative (he was positive for RSV 08/17) CXR shows Airspace opacities are present suspicious for pneumonia or pulmonary edema. This is greater along the right heart border. He is not on anticoagulation but takes plavix for history of stent I can?t rule out secondary bacterial infection as a sequela from his recent RSV infection continue ceftriaxone, azithromycin Mucinex No need to hold Plavix since his hemoptysis is better Breathing treatment sputum culture ESRD Nephrology was consulted for the management of dialysis and ESRD complication, recommendation appreciated. Elevated Troponin Type II [place] Troponin was found incidentally to be mildly elevated above normal limits up to 118. There is no chest pain, SOB, nor significant EKG changes. This is likely type 2 myocardial infarction secondary to ischemia due to increased oxygen demand and/or decreased supply in the setting of her current infection . Decreased troponin renal clearance due to decreased renal function may play a role too . Further workup, if needed, can be done in an outpatient setting. LINTERVAL HPI: As Above, Pt resting in bed. still have cough Denies any chest pain, SOB Chronic diseases: Unless mentioned Above, Essential home medications have been continued. DVT Px: Addressed Disposition: To be determined Plan of care Discussed with: the medical team, the patient L Exam Physical Exam Vital Signs: Temp Pulse Resp BP Pulse Ox O2 Del Method 36.8 C 75 16 173/84 H 97 Room Air 08/28/24 16:08 08/28/24 16:08 08/28/24 16:08 08/28/24 16:08 08/28/24 16:08 08/28/24 16:08 Narrative: GEN: NAD, Cooperative LUNGS: CTA CV: nl S1 S2; no M/R/G ABD: Soft, ND, NT, ? HSM EXT: No peripheral edema, No calf muscle tenderness NEURO: ? FND. PSYCH: nl affect Objective Lab Results 08/27/24 23:42 08/27/24 23:42 Microbiology Results Microbiology 08/28/24 00:39 Nasopharyngeal SARS-CoV-2, Influenza & RSV (PCR) - Final Meds Allergies and Active Meds Allergies ticagrelor (From Brilinta) Allergy (Verified 08/28/24 07:57) shortness of breath Active Meds: Active Medications Generic Name Dose Route Start Last Admin Trade Name Freq PRN Reason Stop Dose Admin Albuterol 2.5 mg 08/28/24 03:16 Albuterol Neb 2.5 Mg/3 Ml Vial.Neb INHALATION 08/28/25 03:15 Q2H PRN Shortness Of Breath Or Wheezing Albuterol/Ipratropium 3 ml 08/28/24 08:00 08/28/24 13:59 Ipratropium/Albuterol 0.5-3 Mg 3 Ml Ampul.Neb INHALATION 08/28/25 07:59 3 ml QID.RESP [facility] Administration Amlodipine Besylate 2.5 mg 08/28/24 09:00 08/28/24 08:57 Amlodipine 2.5 Mg Tablet PO 08/28/25 08:59 Not Given DAILY [facility] Aspirin 81 mg 08/28/24 09:00 08/28/24 08:57 Aspirin 81 Mg Tab.Chew PO 08/28/25 08:59 Not Given QAM [facility] Atorvastatin Calcium 80 mg 08/28/24 21:00 Atorvastatin 80 Mg Tablet PO 08/28/25 20:59 QPM [facility] Azithromycin 250 mg 08/28/24 23:00 Azithromycin 250 Mg Tablet PO Q24H [facility] Calcium Acetate 1,334 mg 08/28/24 12:00 08/28/24 16:17 Calcium Acetate 667 Mg Capsule PO 08/28/25 11:59 1,334 mg TID.WITH.MEALS [facility] Administration Carvedilol 25 mg 08/28/24 08:00 08/28/24 16:17 Carvedilol 25 Mg Tablet PO 08/28/25 07:59 25 mg BID.WITH.MEALS [facility] Administration Ceftriaxone Sodium 1 gm 08/29/24 01:00 Ceftriaxone 1 Gm/10 Ml Syringe IV-PUSH DAILY@0100 [facility] Dextrose 0 gm 08/28/24 03:23 Dextrose 50% In Water 25 Gm/50 Ml Syringe IV-PUSH 08/28/25 03:22 PRN PRN Hypoglycemia Epoetin Alexus 10,000 unit 08/28/24 09:00 08/28/24 10:44 Epoetin Alexus (Esrd Use) 20,000 Unit/Ml Vial IV-PUSH 08/28/25 08:59 10,000 unit MoWeFr@0900 [facility] Administration Protocol Furosemide 80 mg 08/28/24 08:00 08/28/24 16:17 Furosemide 80 Mg Tablet PO 08/28/25 07:59 80 mg BID@0800,1600 [facility] Administration Glucose 0 gm 08/28/24 03:23 Dextrose 40% Gel 15 Gm Tube PO 08/28/25 03:22 PRN PRN Hypoglycemia Guaifenesin 1,200 mg 08/28/24 03:29 Guaifenesin 600 Mg Tab.Er.12h PO 08/28/25 03:28 BID PRN Congestion Heparin Sodium (Porcine) 2,000 unit 08/28/24 08:49 Heparin 10,000 Unit/10 Ml Vial IV 08/28/25 08:48 PRN PRN Dialysis Hydralazine HCl 100 mg 08/28/24 09:00 08/28/24 08:57 Hydralazine 50 Mg Tablet PO 08/28/25 08:59 Not Given BID [facility] Sodium Chloride 1,000 mls @ 0 mls/hr 08/28/24 08:49 08/28/24 10:45 0.9% Sodium Chloride 1,000 Ml MISCELLANE 08/28/25 08:48 Infused .Q0M PRN Infusion Dialysis As Directed Insulin Aspart 0 units 08/28/24 08:00 08/28/24 16:41 Insulin Aspart 300 Units/3 Ml SUBCUT 08/28/25 07:59 Not Given TID.WM.HS [facility] Protocol Insulin Glargine 20 units 08/28/24 09:00 08/28/24 08:46 Insulin Glargine 300 Units/3 Ml Insuln.Pen SUBCUT 08/28/25 08:59 20 units DAILY [facility] Administration Isosorbide Mononitrate 60 mg 08/28/24 09:00 08/28/24 08:46 Isosorbide Mononitrate 24hr Er 60 Mg Tab.Er.24h PO 08/28/25 08:59 60 mg BID [facility] Administration Lisinopril 20 mg 08/28/24 09:00 08/28/24 08:58 Lisinopril 20 Mg Tablet PO 08/28/25 08:59 Not Given DAILY [facility] Nitroglycerin 0.4 mg 08/28/24 04:54 Nitroglycerin 0.4 Mg Tab.Subl SUBLINGUAL 08/28/25 04:53 Q5MIN.X3 PRN Chest Pain Pantoprazole Sodium 40 mg 08/28/24 09:00 08/28/24 08:46 Pantoprazole 40 Mg Tablet. PO 08/28/25 08:59 40 mg BID [facility] Administration Paricalcitol 5 mcg 08/28/24 09:00 08/28/24 10:43 Paricalcitol 10 Mcg/2 Ml Vial IV-PUSH 08/28/25 08:59 5 mcg MoWeFr@0900 [facility] Administration Saccharomyces Boulardii 250 mg 08/28/24 08:00 08/28/24 16:17 Saccharomyces Boulardii 250 Mg Capsule PO 08/28/25 07:59 250 mg BID.WITH.MEALS [facility] Administration Sertraline HCl 100 mg 08/28/24 09:00 08/28/24 08:58 Sertraline 100 Mg Tablet PO 08/28/25 08:59 Not Given DAILY [facility] Sodium Chloride 0 ml 08/27/24 21:47 08/28/24 00:36 Sodium Chloride 0.9 % 10 Ml Syringe IV-PUSH 08/27/25 21:46 10 ml PRN PRN Administration Flush Sodium Chloride 0 ml 08/28/24 08:49 Sodium Chloride 0.9 % 10 Ml Syringe IV-PUSH 08/28/25 08:48 PRN PRN Flush A&P - Hospitalist Assessment/Plan (1) Acute bacterial bronchitis: (2) Hypertension: (3) Type 1 diabetes mellitus: (4) Chronic combined systolic (congestive) and diastolic (congestive) heart failure: (5) ESRD on hemodialysis: (6) Anemia of renal disease: (7) Cough with hemoptysis: Plan Documented By: Law Cano MD 08/28/24 1712 Signed By: <Electronically signed by Law Cano MD> 08/29/24 0123 [facility] Work Phone: [phone] 376-347201-11-2025 [place] [address] Hospitalist Progress Note Signed Patient: Yoel Werner MR#: [id number] : 1985 Acct:[id number] Age/Sex: 39 / M Adm Date: 5 Loc: Room: [address] [place] [address] Type: ADM IN Attending Dr: Law Cano MD Copies to: ~ Date of Service: 08/28/2024 Subjective Subjective Narrative: Assessment And Plan 39M with a PMH of HTN, HLD, DM, ESRD on HD, CAD s/p stents, combined systolic and diastolic heart failure, recent RSV infection the presents emergency room tonight for complaints of hemoptysis Possible Bacterial PNA hemoptysis He still has cough with sputum tinged with blood but better . he p/w hemoptysis. he is afebrile and hemodynamically stable. there is no leukocytosis Lactic acid wnl BNP up to 4000 Blood culture is negative COVID-19 / Flu A/B / RSV PCR negative (he was positive for RSV 08/17) CXR shows Airspace opacities are present suspicious for pneumonia or pulmonary edema. This is greater along the right heart border. He is not on anticoagulation but takes plavix for history of stent I can?t rule out secondary bacterial infection as a sequela from his recent RSV infection continue ceftriaxone, azithromycin Mucinex No need to hold Plavix since his hemoptysis is better Breathing treatment sputum culture ESRD Nephrology was consulted for the management of dialysis and ESRD complication, recommendation appreciated. Elevated Troponin Type II W[place] Troponin was found incidentally to be mildly elevated above normal limits up to 118. There is no chest pain, SOB, nor significant EKG changes. This is likely type 2 myocardial infarction secondary toischemia due to increased oxygen demand and/or decreased supply in the setting of her current infection . Decreased troponin renal clearance due to decreased renal function may play a role too . Further workup, if needed, can be done in an outpatient setting. LINTERVAL HPI: As Above, Pt resting in bed. still have cough Denies any chest pain, SOB Chronic diseases: Unless mentioned Above, Essential home medications have been continued. DVT Px: Addressed Disposition: To be determined Plan of care Discussed with: the medical team, the patient L Exam Physical Exam Vital Signs: Temp Pulse Resp BP Pulse Ox O2 Del Method 36.8 C 75 16 173/84 H 97 Room Air 08/28/24 16:08 08/28/24 16:08 08/28/24 16:08 08/28/24 16:08 08/28/24 16:08 08/28/24 16:08 Narrative: GEN: NAD, Cooperative LUNGS: CTA CV: nl S1 S2; no M/R/G ABD: Soft, ND, NT, ? HSM EXT: No peripheral edema, No calf muscle tenderness NEURO: ? FND. PSYCH: nl affect Objective Lab Results 08/27/24 23:42 08/27/24 23:42 Microbiology Results Microbiology 08/28/24 00:39 Nasopharyngeal SARS-CoV-2, Influenza & RSV (PCR) - Final Meds Allergies and Active Meds Allergies ticagrelor (From Brilinta) Allergy (Verified 08/28/24 07:57) shortness of breath Active Meds: Active Medications Generic Name Dose Route Start Last Admin Trade Name Freq PRN Reason Stop Dose Admin Albuterol 2.5 mg 08/28/24 03:16 Albuterol Neb 2.5 Mg/3 Ml Vial.Neb INHALATION 08/28/25 03:15 Q2H PRN Shortness Of Breath Or Wheezing Albuterol/Ipratropium 3 ml 08/28/24 08:00 08/28/24 13:59 Ipratropium/Albuterol 0.5-3 Mg 3 Ml Ampul.Neb INHALATION 08/28/25 07:59 3 ml QID.RESP RACHELL Administration Amlodipine Besylate 2.5 mg 08/28/24 09:00 08/28/24 08:57 Amlodipine 2.5 Mg Tablet PO 08/28/25 08:59 Not Given DAILY RACHELL Aspirin 81 mg 08/28/24 09:00 08/28/24 08:57 Aspirin 81 Mg Tab.Chew PO 08/28/25 08:59 Not Given QAM [facility] Atorvastatin Calcium 80 mg 08/28/24 21:00 Atorvastatin 80 Mg Tablet PO 08/28/25 20:59 QPM [facility] Azithromycin 250 mg 08/28/24 23:00 Azithromycin 250 Mg Tablet PO Q24H [facility] Calcium Acetate 1,334 mg 08/28/24 12:00 08/28/24 16:17 Calcium Acetate 667 Mg Capsule PO 08/28/25 11:59 1,334 mg TID.WITH.MEALS RACHELL Administration Carvedilol 25 mg 08/28/24 08:00 08/28/24 16:17 Carvedilol 25 Mg Tablet PO 08/28/25 07:59 25 mg BID.WITH.MEALS [facility] Administration Ceftriaxone Sodium 1 gm 08/29/24 01:00 Ceftriaxone 1 Gm/10 Ml Syringe IV-PUSH DAILY@0100 [facility] Dextrose 0 gm 08/28/24 03:23 Dextrose 50% In Water 25 Gm/50 Ml Syringe IV-PUSH 08/28/25 03:22 PRN PRN Hypoglycemia Epoetin Alexus 10,000 unit 08/28/24 09:00 08/28/24 10:44 Epoetin Alexus (Esrd Use) 20,000 Unit/Ml Vial IV-PUSH 08/28/25 08:59 10,000 unit MoWeFr@0900 [facility] Administration Protocol Furosemide 80 mg 08/28/24 08:00 08/28/24 16:17 Furosemide 80 Mg Tablet PO 08/28/25 07:59 80 mg BID@0800,1600 [facility] Administration Glucose 0 gm 08/28/24 03:23 Dextrose 40% Gel 15 Gm Tube PO 08/28/25 03:22 PRN PRN Hypoglycemia Guaifenesin 1,200 mg 08/28/24 03:29 Guaifenesin 600 Mg Tab.Er.12h PO 08/28/25 03:28 BID PRN Congestion Heparin Sodium (Porcine) 2,000 unit 08/28/24 08:49 Heparin 10,000 Unit/10 Ml Vial IV 08/28/25 08:48 PRN PRN Dialysis Hydralazine HCl 100 mg 08/28/24 09:00 08/28/24 08:57 Hydralazine 50 Mg Tablet PO 08/28/25 08:59 Not Given BID [facility] Sodium Chloride 1,000 mls @ 0 mls/hr 08/28/24 08:49 08/28/24 10:45 0.9% Sodium Chloride 1,000 Ml MISCELLANE 08/28/25 08:48 Infused .Q0M PRN Infusion Dialysis As Directed Insulin Aspart 0 units 08/28/24 08:00 08/28/24 16:41 Insulin Aspart 300 Units/3 Ml SUBCUT 08/28/25 07:59 Not Given TID.WM.HS [facility] Protocol Insulin Glargine 20 units 08/28/24 09:00 08/28/24 08:46 Insulin Glargine 300 Units/3 Ml Insuln.Pen SUBCUT 08/28/25 08:59 20 units DAILY RACHELL Administration Isosorbide Mononitrate 60 mg 08/28/24 09:00 08/28/24 08:46 Isosorbide Mononitrate 24hr Er 60 Mg Tab.Er.24h PO 08/28/25 08:59 60 mg BID RACHELL Administration Lisinopril 20 mg 08/28/24 09:00 08/28/24 08:58 Lisinopril 20 Mg Tablet PO 08/28/25 08:59 Not Given DAILY RACHELL Nitroglycerin 0.4 mg 08/28/24 04:54 Nitroglycerin 0.4 Mg Tab.Subl SUBLINGUAL 08/28/25 04:53 Q5MIN.X3 PRN Chest Pain Pantoprazole Sodium 40 mg 08/28/24 09:00 08/28/24 08:46 Pantoprazole 40 Mg Tablet.Dr PO 08/28/25 08:59 40 mg BID RACHELL Administration Paricalcitol 5 mcg 08/28/24 09:00 08/28/24 10:43 Paricalcitol 10 Mcg/2 Ml Vial IV-PUSH 08/28/25 08:59 5 mcg MoWeFr@0900 RACHELL Administration Saccharomyces Boulardii 250 mg 08/28/24 08:00 08/28/24 16:17 Saccharomyces Boulardii 250 Mg Capsule PO 08/28/25 07:59 250 mg BID.WITH.MEALS RACHELL Administration Sertraline HCl 100 mg 08/28/24 09:00 08/28/24 08:58 Sertraline 100 Mg Tablet PO 08/28/25 08:59 Not Given DAILY RACHELL Sodium Chloride 0 ml 08/27/24 21:47 08/28/24 00:36 Sodium Chloride 0.9 % 10 Ml Syringe IV-PUSH 08/27/25 21:46 10 ml PRN PRN Administration Flush Sodium Chloride 0 ml 08/28/24 08:49 Sodium Chloride 0.9 % 10 Ml Syringe IV-PUSH 08/28/25 08:48 PRN PRN Flush A&P - Hospitalist Assessment/Plan (1) Acute bacterial bronchitis: (2) Hypertension: (3) Type 1 diabetes mellitus: (4) Chronic combined systolic (congestive) and diastolic (congestive) heart failure: (5) ESRD on hemodialysis: (6) Anemia of renal disease: (7) Cough with hemoptysis: Plan Documented By: Law Cano MD 08/28/24 171 Signed By: 08/29/24 [facility]01-10-2025 Consult note Author Angel Mejía [facility] Note Date/Time August 28, 2024 1 2:33pm [facility] [address] [place] [address] Nephrology Consult Note Signed Patient: Yoel Werner MR#: [id number] : 1985 Acct:[id number] Age/Sex: 39 / M Adm Date: 5 Loc: Room: [address] [place] [address] Type: ADM IN Attending Dr: Law Cano MD Copies to: MD Eusebio Castellano DO Marwan Wassouf, MD~ Providers Consult Date: 08/28/24 Requesting Provider: Law Cano MD Primary Care Provider: Eusebio Olivares DO HPI Reason for Consult: ESRD management History of Present Illness: This is a 39-year-old male with a medical history of ESRD on hemodialysis, DM, CHF, CAD s/p multiple PCI, HTN, COPD, anemia of renal disease, HLD and recent RSV infection was presented to the emergency room for cough with hemoptysis. Patient was recently diagnosed with to have RSV about 2 weeks ago. In the emergency room patient was evaluated and had a chest x-ray which was airspace disease possibly pneumonia versus pulmonary edema. Patient was admitted for further workup. Patient has a known history of ESRD due to the diabetic nephropathy and hypertensive nephrosclerosis. [facility]. He has a AV fistula as a dialysisaccess. Patient is due for dialysis today. No nephrology is consulted for ESRDmanagement during his hospital stay. Patient was seen and examined at bedside during hemodialysis. He is feeling better since admission. Review of Systems Review of Systems All other systems reviewed & are negative unless noted below or in HPI Review of systems: Cardiovascular: denies any chest pain, palpitation Gastrointestinal: denies any nausea, vomiting, diarrhea Neurological :denies any headache, numbness, weakness Endocrine: denies any polyuria, polydipsia Dermatological: denies any itching or rash [facility] Medical History Wellness examination Hypertensive CKD, ESRD on dialysis Secondary hyperparathyroidism Chronic combined systolic (congestive) and diastolic (congestive) heart failure Dependence on renal dialysis EBENEZER (generalized anxiety disorder) Mixed hyperlipidemia Monoclonal (M) protein disease, multiple 'M' protein End-stage renal disease (ESRD) Chronic bronchitis Dyspnea Insomnia Nicotine addiction Cataract left eye-removed ESRD (end stage renal disease) on dialysis ASHD (arteriosclerotic heart disease) Primary hypertension Peyronie's disease Erectile dysfunction due to arterial insufficiency Chronic venous insufficiency Anemia in chronic kidney disease Anasarca CAD (coronary artery disease) Diabetes mellitus Depression AV fistula left arm Asthmatic bronchitis , chronic PTSD (post-traumatic stress disorder) MGUS (monoclonal gammopathy of unknown significance) History of blood transfusion 2020 Diabetic retinopathy History of myocardial infarction 2021 Surgical History H/O heart artery stent (~02/2024) x5, 02/2024 - no intervention, History of bone marrow biopsy H/O eye surgery right and left repair retina Hx of knee surgery scope at age 17 Hx of vasectomy 7yrs ago Family History Mother Liver disease Diabetes Pancreatic cancer Father Diverticulitis Hypertension IBS (irritable bowel syndrome) Stroke Heart disease History of stroke Family history of mental disorder Social History Smoking Status: Former smoker Tobacco Type: cigarettes Substance Use Type: None Substance Abuse Comment: Has not used in a few months ; Medical card that in Sep 2023 Social History Comments: lives with dad Meds Medications & Allergies Allergies ticagrelor (From Brilinta) Allergy (Verified 08/28/24 07:57) shortness of breath Home Medications atorvastatin 80 mg tablet 80 mg PO QPM 30 days #30 tabs 11/17/21 [Rx Confirmed 08/28/24] nitroglycerin 0.4 mg sublingual tablet 0.4 mg sublingual Q5MIN.X3 PRN Chest Pain30 days #25 tabs 11/17/21 [Rx Confirmed 08/28/24] aspirin 81 mg chewable tablet (Children's Aspirin) 81 mg PO QAM 09/10/22 [History Confirmed 08/28/24] isosorbide mononitrate 60 mg tablet,extended release 24 hr 60 mg PO BID 11/12/22[History Confirmed 08/28/24] calcium acetate 667 mg tablet 1,334 mg PO TID 11/13/23 [History Confirmed 08/28/24] insulin lispro 100 unit/mL subcutaneous pen (Humalog KwikPen (U-100) Insulin) 1 sliding scale dose subcut USEASDIRECTD 11/13/23 [History Confirmed 08/28/24] insulin glargine 100 unit/mL subcutaneous solution (Lantus U-100 Insulin) 20 unit subcut DAILY 11/26/23 [History Confirmed 08/28/24] 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 meter,continuous (FreeStyle Ramy 3 [place]) #1 ea 03/02/24 [Rx Confirmed 08/28/24] 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 meter,continuous (FreeStyle Ramy 3 [place]) #1 ea 03/19/24 [Rx Confirmed 08/28/24] omeprazole 40 mg capsule,delayed release See Rx Instructions .Route .COMPLEX #90caps 04/21/24 [Rx Confirmed 08/28/24] lisinopril 20 mg tablet 20 mg PO DAILY 30 days #30 tabs 04/29/24 [Rx Confirmed 08/28/24] 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 sensor (FreeStyle Ramy 3 Plus Sensor device) #1 ea 05/17/24 [Rx Confirmed 08/28/24] hydroxyzine HCl 25 mg tablet See Rx Instructions .Route .COMPLEX #90 tabs 05/21/24 [Rx Confirmed 08/28/24] famotidine 20 mg tablet 40 mg PO QPM 06/22/24 [History Confirmed 08/28/24] carvedilol 25 mg tablet See Rx Instructions .Route .COMPLEX #180 tabs 07/21/24 [Rx Confirmed 08/28/24] sertraline 100 mg tablet See Rx Instructions .Route .COMPLEX #90 tabs 07/21/24 [Rx Confirmed 08/28/24] hydralazine 100 mg tablet 100 mg PO BID 30 days #60 tabs 08/07/24 [Rx Confirmed 08/28/24] furosemide 80 mg tablet (Lasix) 80 mg PO BID 30 days #60 tabs 08/24/24 [Rx Confirmed 08/28/24] amlodipine 2.5 mg tablet 5 mg PO DAILY 08/28/24 [History Confirmed 08/28/24] clopidogrel 75 mg tablet (Plavix) 75 mg PO DAILY 08/28/24 [History Confirmed 08/28/24] Active Medications: Active Medications Albuterol (Albuterol Neb 2.5 Mg/3 Ml Vial.Neb) 2.5 mg INHALATION Q2H PRN PRN Reason: Shortness Of Breath Or Wheezing Stop: 08/28/25 03:15 Albuterol/Ipratropium (Ipratropium/Albuterol 0.5-3 Mg 3 Ml Ampul.Neb) 3 ml INHALATION QID.RESP RACHELL Stop: 08/28/25 07:59 Last Admin: 08/28/24 09:19 Dose: 3 ml Amlodipine Besylate (Amlodipine 2.5 Mg Tablet) 2.5 mg PO DAILY RACHELL Stop: 08/28/25 08:59 Last Admin: 08/28/24 08:57 Dose: Not Given Aspirin (Aspirin 81 Mg Tab.Chew) 81 mg PO QAM RACHELL Stop: 08/28/25 08:59 Last Admin: 08/28/24 08:57 Dose: Not Given Atorvastatin Calcium (Atorvastatin 80 Mg Tablet) 80 mg PO QPM [facility] Stop: 08/28/25 20:59 Azithromycin (Azithromycin 250 Mg Tablet) 250 mg PO Q24H [facility] Calcium Acetate (Calcium Acetate 667 Mg Capsule) 1,334 mg PO TID.WITH.MEALS [facility] Stop: 08/28/25 11:59 Carvedilol (Carvedilol 25 Mg Tablet) 25 mg PO BID.WITH.MEALS [facility] Stop: 08/28/25 07:59 Last Admin: 08/28/24 07:50 Dose: 25 mg Ceftriaxone Sodium (Ceftriaxone 1 Gm/10 Ml Syringe) 1 gm IV-PUSH DAILY@0100 [facility] Dextrose (Dextrose 50% In Water 25 Gm/50 Ml Syringe) 0 gm IV-PUSH PRN PRN PRN Reason: Hypoglycemia Stop: 08/28/25 03:22 Epoetin Alexus (Epoetin Alexus (Esrd Use) 20,000 Unit/Ml Vial) 10,000 unit IV-PUSH MoWeFr@0900 [facility]; Protocol Stop: 08/28/25 08:59 Last Admin: 08/28/24 10:44 Dose: 10,000 unit Furosemide (Furosemide 80 Mg Tablet) 80 mg PO BID@0800,1600 [facility] Stop: 08/28/25 07:59 Last Admin: 08/28/24 07:51 Dose: 80 mg Glucose (Dextrose 40% Gel 15 Gm Tube) 0 gm PO PRN PRN PRN Reason: Hypoglycemia Stop: 08/28/25 03:22 Guaifenesin (Guaifenesin 600 Mg Tab.Er.12h) 1,200 mg PO BID PRN PRN Reason: Congestion Stop: 08/28/25 03:28 Heparin Sodium (Porcine) (Heparin 10,000 Unit/10 Ml Vial) 2,000 unit IV PRN PRN PRN Reason: Dialysis Stop: 08/28/25 08:48 Hydralazine HCl (Hydralazine 50 Mg Tablet) 100 mg PO BID [facility] Stop: 08/28/25 08:59 Last Admin: 08/28/24 08:57 Dose: Not Given Sodium Chloride (0.9% Sodium Chloride 1,000 Ml) 1,000 mls @ 0 mls/hr MISCELLANE.Q0M PRN PRN Reason: Dialysis Stop: 08/28/25 08:48 Last Infusion: 08/28/24 10:45 Dose: Infused Insulin Aspart (Insulin Aspart 300 Units/3 Ml) 0 units SUBCUT TID.WM.HS [facility]; Protocol Stop: 08/28/25 07:59 Last Admin: 08/28/24 07:53 Dose: 4 units Insulin Glargine (Insulin Glargine 300 Units/3 Ml Insuln.Pen) 20 units SUBCUT DAILY [facility] Stop: 08/28/25 08:59 Last Admin: 08/28/24 08:46 Dose: 20 units Isosorbide Mononitrate (Isosorbide Mononitrate 24hr Er 60 Mg Tab.Er.24h) 60 mg PO BID RACHELL Stop: 08/28/25 08:59 Last Admin: 08/28/24 08:46 Dose: 60 mg Lisinopril (Lisinopril 20 Mg Tablet) 20 mg PO DAILY RACHELL Stop: 08/28/25 08:59 Last Admin: 08/28/24 08:58 Dose: Not Given Nitroglycerin (Nitroglycerin 0.4 Mg Tab.Subl) 0.4 mg SUBLINGUAL Q5MIN.X3 PRN PRN Reason: Chest Pain Stop: 08/28/25 04:53 Pantoprazole Sodium (Pantoprazole 40 Mg Tablet.Dr) 40 mg PO BID RACHELL Stop: 08/28/25 08:59 Last Admin: 08/28/24 08:46 Dose: 40 mg Paricalcitol (Paricalcitol 10 Mcg/2 Ml Vial) 5 mcg IV-PUSH MoWeFr@0900 [facility] Stop: 08/28/25 08:59 Last Admin: 08/28/24 10:43 Dose: 5 mcg Saccharomyces Boulardii (Saccharomyces Boulardii 250 Mg Capsule) 250 mg PO BID.WITH.MEALS [facility] Stop: 08/28/25 07:59 Last Admin: 08/28/24 07:50 Dose: 250 mg Sertraline HCl (Sertraline 100 Mg Tablet) 100 mg PO DAILY [facility] Stop: 08/28/25 08:59 Last Admin: 08/28/24 08:58 Dose: Not Given Sodium Chloride (Sodium Chloride 0.9 % 10 Ml Syringe) 0 ml IV-PUSH PRN PRN PRN Reason: Flush Stop: 08/27/25 21:46 Last Admin: 08/28/24 00:36 Dose: 10 ml Sodium Chloride (Sodium Chloride 0.9 % 10 Ml Syringe) 0 ml IV-PUSH PRN PRN PRN Reason: Flush Stop: 08/28/25 08:48 Exam Physical Exam Vital Signs: Temp Pulse Resp BP Pulse Ox O2 Del Method 97.2 F L 78 16 144/76 H 99 Room Air 08/28/24 09:30 08/28/24 09:30 08/28/24 09:30 08/28/24 09:30 08/28/24 09:30 08/28/24 09:30 Narrative: General: Appears comfortable and not in distress Heart: S1-S2, no rub Lung: Bilateral air entry, no wheezing or crackles Abdomen: Soft, positive bowel sounds Extremities: No edema, no cyanosis Head: Atraumatic, normocephalic Ear: No gross hearing Deficit or external ear redness Eyes: No pallor or redness Neck: No JVD or visible mass Skin: No rashes , warm to touch DROP FORGE HAND: Awake,Alert, following simple command Musculoskeletal: No swelling or limitation of movement of the large joints Psychiatric: Cooperative, normal mood and affect Results - Nephrology Labs 08/27/24 23:42 08/27/24 23:42 Labs: 08/27/24 23:42 BUN 48 H Creatinine 5.91 H Albumin 3.7 Radiology Impressions Impressions - last 24 hours: Impressions Chest X-Ray 08/27/24 23:37 IMPRESSION: Airspace opacities are present suspicious for pneumonia or pulmonary edema. This is greater along the right heart border. Impression dictated by: Trenton Salinas M.D.08/27/2024 11:57 PM Dictation Location: [place] [address] Any impression(s) listed above is documentation that was entered by the reading physician into a diagnostic report(s) for Yoel Werner. I have reviewed the report(s) and am incorporating any findings in the treatment plan of this patient where applicable. 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 Currently goes to the [place] dialysis 3 times a week on MWF schedule. (2) Cough with hemoptysis: Assessment/Problem Details: Patient with new cough with hemoptysis. His chest x-ray showed airspace diseasepossibly pneumonia versus pulm edema. (3) Hypertensive CKD, ESRD on dialysis: Assessment/Problem Details: His blood pressure is high and he appears to be hypervolemic. He has a large intradialytic weight gain despite education due to the noncompliance. He takes Lasix, amlodipine, hydralazine, lisinopril and carvedilol. (4) Anemia of renal disease: Assessment/Problem Details: His hemoglobin is within the goal. He receives Epogen with dialysis. (5) Secondary hyperparathyroidism: Assessment/Problem Details: He has a secondary hyperparathyroidism due to the ESRD and hyperphosphatemia. Currently takes calcium acetate. He also receives IV Zemplar with hemodialysis. (6) Type 2 diabetes mellitus with diabetic chronic kidney disease: Assessment/Problem Details: He has insulin-dependent type 2 diabetes mellitus and takes insulin glargine at home. Plan * Hemodialysis today as ordered. * Continue pneumonia management as per the primary team. * Continue home dose of the antihypertensive medication including amlodipine, carvedilol, lisinopril, hydralazine and Lasix. * Continue home dose of the calcium acetate * Will continue outpatient dose of the Epogen 10,000 unit once weekly with dialysis. * Will continue outpatient dose of the IV Zemplar 5 mcg 3 times a week with dialysis. * Continue DM management as per the primary hospitalist team. Adjust insulin as needed to keep the blood sugar between 100 to 150 mg/dL. * Check renal function daily and monitor for output * Thanks for consult. Will continue follow-up with you. Please feel free to call us with any question Documented By: Angel Mejía MD 08/28/24 1111 Signed By: <Electronically signed by Angel Mejía MD> 08/28/[address] [place] [address] Work Phone: [phone]) 429-734001-10-2025 [place] [address] Nephrology Consult Note Signed Patient: Yoel Werner MR#: [id number] : 1985 Acct:[id number] Age/Sex: 39 / M Adm Date: 5 Loc: Room: [address] [place] [address] Type: ADM IN Attending Dr: Law Cano MD Copies to: MD Eusebio Castellano DO Marwan Wassouf, MD~ Providers Consult Date: 08/28/24 Requesting Provider: Law Cano MD Primary Care Provider: Eusebio Olivares DO HPI Reason for Consult: ESRD management History of Present Illness: This is a 39-year-old male with a medical history of ESRD on hemodialysis, DM, CHF, CAD s/p multiple PCI, HTN, COPD, anemia of renal disease, HLD and recent RSV infection was presented to the emergency room for cough with hemoptysis. Patient was recently diagnosed with to have RSV about 2 weeks ago. In the emergency room patient was evaluated and had a chest x-ray which was airspace disease possibly pneumonia versus pulmonary edema. Patient was admitted for further workup. Patient has a known history of ESRD due to the diabetic nephropathy and hypertensive nephrosclerosis. [facility]. He has a AV fistula as a dialysisaccess.Patient is due for dialysis today. No nephrology is consulted for ESRDmanagement during his hospital stay. Patient was seen and examined at bedside during hemodialysis. He is feeling better since admission. Review of Systems Review of Systems All other systems reviewed & are negative unless noted below or in HPI Review of systems: Cardiovascular: denies any chest pain, palpitation Gastrointestinal: denies any nausea, vomiting, diarrhea Neurological :denies any headache, numbness, weakness Endocrine: denies any polyuria, polydipsia Dermatological: denies any itching or rash [facility] Medical History Wellness examination Hypertensive CKD, ESRD on dialysis Secondary hyperparathyroidism Chronic combined systolic (congestive) and diastolic (congestive) heart failure Dependence on renal dialysis Sat- EBENEZER (generalized anxiety disorder) Mixed hyperlipidemia Monoclonal (M) protein disease, multiple 'M' protein End-stage renal disease (ESRD) Chronic bronchitis Dyspnea Insomnia Nicotine addiction Cataract left eye-removed ESRD (end stage renal disease) on dialysis Sat- ASHD (arteriosclerotic heart disease) Primary hypertension Peyronie's disease Erectile dysfunction due to arterial insufficiency Chronic venous insufficiency Anemia in chronic kidney disease Anasarca CAD (coronary artery disease) Diabetes mellitus Depression AV fistula left arm Asthmatic bronchitis , chronic PTSD (post-traumatic stress disorder) MGUS (monoclonal gammopathy of unknown significance) History of blood transfusion 2020 Diabetic retinopathy History of myocardial infarction 2021 Surgical History H/O heart artery stent (~02/2024) x5, 02/2024 - no intervention, History of bone marrow biopsy H/O eye surgery right and left repair retina Hx of knee surgery scope at age 17 Hx of vasectomy 7yrs ago Family History Mother Liver disease Diabetes Pancreatic cancer Father Diverticulitis Hypertension IBS (irritable bowel syndrome) Stroke Heart disease History of stroke Family history of mental disorder Social History Smoking Status: Former smoker Tobacco Type: cigarettes Substance Use Type: None Substance Abuse Comment: Has not used in a few months ; Medical card that in Sep 2023 Social History Comments: lives with dad Meds Medications & Allergies Allergies ticagrelor (From Brilinta) Allergy (Verified 08/28/24 07:57) shortness of breath Home Medications atorvastatin 80 mg tablet 80 mg PO QPM 30 days #30 tabs 11/17/21 [Rx Confirmed 08/28/24] nitroglycerin 0.4 mg sublingual tablet 0.4 mg sublingual Q5MIN.X3 PRN Chest Pain30 days #25 tabs 11/17/21 [Rx Confirmed 08/28/24] aspirin 81 mg chewable tablet (Children's Aspirin) 81 mg PO QAM 09/10/22 [History Confirmed 08/28/24] isosorbide mononitrate 60 mg tablet,extended release 24 hr 60 mg PO BID 11/12/22[History Confirmed 08/28/24] calcium acetate 667 mg tablet 1,334 mg PO TID 11/13/23 [History Confirmed 08/28/24] insulin lispro 100 unit/mL subcutaneous pen (Humalog KwikPen (U-100) Insulin) 1 sliding scale dose subcut USEASDIRECTD 11/13/23 [History Confirmed 08/28/24] insulin glargine 100 unit/mL subcutaneous solution (Lantus U-100 Insulin) 20 unit subcut DAILY 11/26/23 [History Confirmed 08/28/24] 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 meter,continuous (FreeStyle Ramy 3 [place]ornillo) #1 ea 03/02/24 [Rx Confirmed 08/28/24] 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 meter,continuous (FreeStyle Ramy 3 [place]) #1 ea 03/19/24 [Rx Confirmed 08/28/24] omeprazole 40 mg capsule,delayed release See Rx Instructions .Route .COMPLEX #90caps 04/21/24 [Rx Confirmed 08/28/24] lisinopril 20 mg tablet 20 mg PO DAILY 30 days #30 tabs 04/29/24 [Rx Confirmed 08/28/24] 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 sensor (FreeStyle Ramy 3 Plus Sensor device) #1 ea 05/17/24 [Rx Confirmed 08/28/24] hydroxyzine HCl 25 mg tablet See Rx Instructions .Route .COMPLEX #90 tabs 05/21/24 [Rx Confirmed 08/28/24] famotidine 20 mg tablet 40 mg PO QPM 06/22/24 [History Confirmed 08/28/24] carvedilol 25 mg tablet See Rx Instructions .Route .COMPLEX #180 tabs 07/21/24 [Rx Confirmed 08/28/24] sertraline 100 mg tablet See Rx Instructions .Route .COMPLEX #90 tabs 07/21/24 [Rx Confirmed 08/28/24] hydralazine 100 mg tablet 100 mg PO BID 30 days #60 tabs 08/07/24 [Rx Confirmed 08/28/24] furosemide 80 mg tablet (Lasix) 80 mg PO BID 30 days #60 tabs 08/24/24 [Rx Confirmed 08/28/24] amlodipine 2.5 mg tablet 5 mg PO DAILY 08/28/24 [History Confirmed 08/28/24] clopidogrel 75 mg tablet (Plavix) 75 mg PO DAILY 08/28/24 [History Confirmed 08/28/24] Active Medications: Active Medications Albuterol (Albuterol Neb 2.5 Mg/3 Ml Vial.Neb) 2.5 mg INHALATION Q2H PRN PRN Reason: Shortness Of Breath Or Wheezing Stop: 08/28/25 03:15 Albuterol/Ipratropium (Ipratropium/Albuterol 0.5-3 Mg 3 Ml Ampul.Neb) 3 ml INHALATION QID.RESP [facility] Stop: 08/28/25 07:59 Last Admin: 08/28/24 09:19 Dose: 3 ml Amlodipine Besylate (Amlodipine 2.5 Mg Tablet) 2.5 mg PO DAILY [facility] Stop: 08/28/25 08:59 Last Admin: 08/28/24 08:57 Dose: Not Given Aspirin (Aspirin 81 Mg Tab.Chew) 81 mg PO QAM [facility] Stop: 08/28/25 08:59 Last Admin: 08/28/24 08:57 Dose: Not Given Atorvastatin Calcium (Atorvastatin 80 Mg Tablet) 80 mg PO QPM [facility] Stop: 08/28/25 20:59 Azithromycin (Azithromycin 250 Mg Tablet) 250 mg PO Q24H [facility] Calcium Acetate (Calcium Acetate 667 Mg Capsule) 1,334 mg PO TID.WITH.MEALS [facility] Stop: 08/28/25 11:59 Carvedilol (Carvedilol 25 Mg Tablet) 25 mg PO BID.WITH.MEALS [facility] Stop: 08/28/25 07:59 Last Admin: 08/28/24 07:50 Dose: 25 mg Ceftriaxone Sodium (Ceftriaxone 1 Gm/10 Ml Syringe) 1 gm IV-PUSH DAILY@0100 [facility] Dextrose (Dextrose 50% In Water 25 Gm/50 Ml Syringe) 0 gm IV-PUSH PRN PRN PRN Reason: Hypoglycemia Stop: 08/28/25 03:22 Epoetin Alexus (Epoetin Alexus (Esrd Use) 20,000 Unit/Ml Vial) 10,000 unit IV-PUSH MoWeFr@0900 [facility]; Protocol Stop: 08/28/25 08:59 Last Admin: 08/28/24 10:44 Dose: 10,000 unit Furosemide (Furosemide 80 Mg Tablet) 80 mg PO BID@0800,1600 [facility] Stop: 08/28/25 07:59 Last Admin: 08/28/24 07:51 Dose: 80 mg Glucose (Dextrose 40% Gel 15 Gm Tube) 0 gm PO PRN PRN PRN Reason: Hypoglycemia Stop: 08/28/25 03:22 Guaifenesin (Guaifenesin 600 Mg Tab.Er.12h) 1,200 mg PO BID PRN PRN Reason: Congestion Stop: 08/28/25 03:28 Heparin Sodium (Porcine) (Heparin 10,000 Unit/10 Ml Vial) 2,000 unit IV PRN PRN PRN Reason: Dialysis Stop: 08/28/25 08:48 Hydralazine HCl (Hydralazine 50 Mg Tablet) 100 mg PO BID [facility] Stop: 08/28/25 08:59 Last Admin: 08/28/24 08:57 Dose: Not Given Sodium Chloride (0.9% Sodium Chloride 1,000 Ml) 1,000 mls @ 0 mls/hr MISCELLANE.Q0M PRN PRN Reason: Dialysis Stop: 08/28/25 08:48 Last Infusion: 08/28/24 10:45 Dose: Infused Insulin Aspart (Insulin Aspart 300 Units/3 Ml) 0 units SUBCUT TID.WM.HS [facility]; Protocol Stop: 08/28/25 07:59 Last Admin: 08/28/24 07:53 Dose: 4 units Insulin Glargine (Insulin Glargine 300 Units/3 Ml Insuln.Pen) 20 units SUBCUT DAILY [facility] Stop: 08/28/25 08:59 Last Admin: 08/28/24 08:46 Dose: 20 units Isosorbide Mononitrate (Isosorbide Mononitrate 24hr Er 60 Mg Tab.Er.24h) 60 mg PO BID [facility] Stop: 08/28/25 08:59 Last Admin: 08/28/24 08:46 Dose: 60 mg Lisinopril (Lisinopril 20 Mg Tablet) 20 mg PO DAILY [facility] Stop: 08/28/25 08:59 Last Admin: 08/28/24 08:58 Dose: Not Given Nitroglycerin (Nitroglycerin 0.4 Mg Tab.Subl) 0.4 mg SUBLINGUAL Q5MIN.X3 PRN PRN Reason: Chest Pain Stop: 08/28/25 04:53 Pantoprazole Sodium (Pantoprazole 40 Mg Tablet.Dr) 40 mg PO BID [facility] Stop: 08/28/25 08:59 Last Admin: 08/28/24 08:46 Dose: 40 mg Paricalcitol (Paricalcitol 10 Mcg/2 Ml Vial) 5 mcg IV-PUSH MoWeFr@0900 [facility] Stop: 08/28/25 08:59 Last Admin: 08/28/24 10:43 Dose: 5 mcg Saccharomyces Boulardii (Saccharomyces Boulardii 250 Mg Capsule) 250 mg PO BID.WITH.MEALS [facility] Stop: 08/28/25 07:59 Last Admin: 08/28/24 07:50 Dose: 250 mg Sertraline HCl (Sertraline 100 Mg Tablet) 100 mg PO DAILY [facility] Stop: 08/28/25 08:59 Last Admin: 08/28/24 08:58 Dose: Not Given Sodium Chloride (Sodium Chloride 0.9 % 10 Ml Syringe) 0 ml IV-PUSH PRN PRN PRN Reason: Flush Stop: 08/27/25 21:46 Last Admin: 08/28/24 00:36 Dose: 10 ml Sodium Chloride (Sodium Chloride 0.9 % 10 Ml Syringe) 0 ml IV-PUSH PRN PRN PRN Reason: Flush Stop: 08/28/25 08:48 Exam Physical Exam Vital Signs: Temp Pulse Resp BP Pulse Ox O2 Del Method 97.2 F L 78 16 144/76 H 99 Room Air 08/28/24 09:30 08/28/24 09:30 08/28/24 09:30 08/28/24 09:30 08/28/24 09:30 08/28/24 09:30 Narrative: General: Appears comfortable and not in distress Heart: S1-S2, no rub Lung: Bilateral air entry, no wheezing or crackles Abdomen: Soft, positive bowel sounds Extremities: No edema, no cyanosis Head: Atraumatic, normocephalic Ear: No gross hearing Deficit or external ear redness Eyes: No pallor or redness Neck: No JVD or visible mass Skin: No rashes , warm to touch DROP FORGE HAND: Awake,Alert, following simple command Musculoskeletal: No swelling or limitation of movement of the large joints Psychiatric: Cooperative, normal mood and affect Results - Nephrology Labs 08/27/24 23:42 08/27/24 23:42 Labs: 08/27/24 23:42 BUN 48 H Creatinine 5.91 H Albumin 3.7 Radiology Impressions Impressions - last 24 hours: Impressions Chest X-Ray 08/27/24 23:37 IMPRESSION: Airspace opacities are present suspicious for pneumonia or pulmonary edema. This is greater along the right heart border. Impression dictated by: Trenton Salinas M.D.08/27/2024 11:57 PM Dictation Location: [place] [address] Any impression(s) listed above is documentation that was entered by the reading physician into a diagnostic report(s) for Yoel Werner. I have reviewed the report(s) and am incorporating any findings in the treatment plan of this patient where applicable. 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 Currently goes to the [place] dialysis 3 times a week on MWF schedule. (2) Cough with hemoptysis: Assessment/Problem Details: Patient with new cough with hemoptysis. His chest x-ray showed airspace diseasepossibly pneumonia versus pulm edema. (3) Hypertensive CKD, ESRD on dialysis: Assessment/Problem Details: His blood pressure is high and he appears to be hypervolemic. He has a large intradialytic weight gain despite education due to the noncompliance. He takes Lasix, amlodipine, hydralazine, lisinopril and carvedilol. (4) Anemia of renal disease: Assessment/Problem Details: His hemoglobin is within the goal. He receives Epogen with dialysis. (5) Secondary hyperparathyroidism: Assessment/Problem Details: He has a secondary hyperparathyroidism due to the ESRD and hyperphosphatemia. Currently takes calcium acetate. He also receives IV Zemplar with hemodialysis. (6) Type 2 diabetes mellitus with diabetic chronic kidney disease: Assessment/Problem Details: He has insulin-dependent type 2 diabetes mellitus and takes insulin glargine at home. Plan * Hemodialysis today as ordered. * Continue pneumonia management as per the primary team. * Continue home dose of the antihypertensive medication including amlodipine, carvedilol, lisinopril, hydralazine and Lasix. * Continue home dose of the calcium acetate * Will continue outpatient dose of the Epogen 10,000 unit once weekly with dialysis. * Will continue outpatient dose of the IV Zemplar 5 mcg 3 times a week with dialysis. * Continue DM management as per the primary hospitalist team. Adjust insulin as needed to keep the blood sugar between 100 to 150 mg/dL. * Check renal function daily and monitor for output * Thanks for consult. Will continue follow-up with you. Please feel free to call us with any question Documented By: Angel Mejía MD 08/28/24 1111 Signed By: 08/28/[address] [place], [place] [id number] History and physical note Author Brigid Anderson [facility] Note Date/Time August 28, 2024 4 :58am [facility] [address] [place] [address] Hospitalist H&P Signed Patient: Yoel Werner MR#: [id number] : 1985 Acct:[id number] Age/Sex: 39 / M Adm Date: 5 Loc: Room: [address] [place] [address] Type: ADM IN Attending Dr: Dwayne Little DO Copies to: Eusebio Olivares,DO Dwayne Little, DO Brigid Anderson, CAR O[employer]ER~ HPI DATE OF EXAMINATION: 08/28/24 CHIEF COMPLAINT: coughing up blood HISTORY OF PRESENT ILLNESS: Mr. Werner is a 39-year-old male with a PMH of ESRD on HD?M/W/F, AV fistula to the left arm, [place], 5 cardiac stents, combined systolic and diastolic heart failure, HTN, T1DM, recent RSV the presents emergency room tonight for complaints of coughing up blood. He says that he has had a moist cough, has been coughing up blood for the last couple of days. Reports it looks like a blood clot. Also reports having fever and chills. Denies chest pain or shortness of breath. He also states that he is gained 12 kg in a week. He doesstate that he went to dialysis on Saturday and Saturday. Reports his dry weight is 70.5 kg. Also states that he has been taking his medications as prescribed which include Lasix twice a day. States he follows with [facility] to provide for pancreas and kidney transplant. He is a former smoker, denies alcohol and illicit drug use. Chest x-ray in the emergency room shows airspace opacities suspicious for pneumonia or pulmonary edema. Nasal swab was negative for COVID, influenza and RSV. EKG is normal sinus rhythm. CBC with an H&H 10.9/31.8. CMP with sodium 131, BUN 48, creatinine 5.91, glucose 379. Troponin 118, BNP 4066. Lactic acid0.6. Patient was medicated with ceftriaxone, azithromycin, Bumex, Reglan, Benadryl, hydralazine. He will be admitted as inpatient to the [facility] telemetry floor. Review of Systems Review of Systems Review of systems: A 10 point review of systems was obtained, negative unless noted in the HPI or below. [facility] Medical History Wellness examination Hypertensive CKD, ESRD on dialysis Secondary hyperparathyroidism Chronic combined systolic (congestive) and diastolic (congestive) heart failure Dependence on renal dialysis Sat-Sat-Sat EBENEZER (generalized anxiety disorder) Mixed hyperlipidemia Monoclonal (M) protein disease, multiple 'M' protein End-stage renal disease (ESRD) Chronic bronchitis Dyspnea Insomnia Nicotine addiction Cataract left eye-removed ESRD (end stage renal disease) on dialysis Sat-Sat-Sat ASHD (arteriosclerotic heart disease) Primary hypertension Peyronie's disease Erectile dysfunction due to arterial insufficiency Chronic venous insufficiency Anemia in chronic kidney disease Anasarca CAD (coronary artery disease) Diabetes mellitus Depression AV fistula left arm Asthmatic bronchitis , chronic PTSD (post-traumatic stress disorder) MGUS (monoclonal gammopathy of unknown significance) History of blood transfusion 2020 Diabetic retinopathy History of myocardial infarction 2021 Surgical History H/O heart artery stent (~02/2024) x5, 02/2024 - no intervention, History of bone marrow biopsy H/O eye surgery right and left repair retina Hx of knee surgery scope at age 17 Hx of vasectomy 7yrs ago Family History Mother Liver disease Diabetes Pancreatic cancer Father Diverticulitis Hypertension IBS (irritable bowel syndrome) Stroke Heart disease History of stroke Family history of mental disorder Social History Smoking Status: Former smoker Tobacco Type: cigarettes Substance Use Type: None Substance Abuse Comment: Has not used in a few months ; Medical card that in Sep 2023 Social History Comments: lives with dad Meds Medications and Allergies Allergies No Known Allergies Allergy (Verified 08/27/24 21:43) Home Medications atorvastatin 80 mg tablet 80 mg PO QPM 30 days #30 tabs 11/17/21 [Rx Confirmed 06/22/24] nitroglycerin 0.4 mg sublingual tablet 0.4 mg sublingual Q5MIN.X3 PRN Chest Pain30 days #25 tabs 11/17/21 [Rx Confirmed 06/22/24] aspirin 81 mg chewable tablet (Children's Aspirin) 81 mg PO QAM 09/10/22 [History Confirmed 06/22/24] isosorbide mononitrate 60 mg tablet,extended release 24 hr 60 mg PO BID 11/12/22[History Confirmed 06/22/24] calcium acetate 667 mg tablet 1,334 mg PO TID 11/13/23 [History Confirmed 06/22/24] insulin lispro 100 unit/mL subcutaneous pen (Humalog KwikPen (U-100) Insulin) 1 sliding scale dose subcut USEASDIRECTD 11/13/23 [History Confirmed 06/22/24] insulin glargine 100 unit/mL subcutaneous solution (Lantus U-100 Insulin) 20 unit subcut DAILY 11/26/23 [History Confirmed 06/22/24] albuterol sulfate 90 mcg/actuation aerosol inhaler 2 puff inhalation Q6HR PRN bronchospasm 30 days #8.5 grams 03/02/24 [Rx Confirmed 06/22/24] 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 meter,continuous (FreeStyle Ramy 3 Tornillo) #1 ea 03/02/24 [Rx Confirmed 06/22/24] 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 meter,continuous (FreeStyle Ramy 3 [place]) #1 ea 03/19/24 [Rx Confirmed 06/22/24] albuterol sulfate 2.5 mg/3 mL (0.083 %) solution for nebulization 2.5 mg (3 mL) inhalation Q6HR PRN cough 30 days #75 mL 03/25/24 [Rx Confirmed 06/22/24] omeprazole 40 mg capsule,delayed release See Rx Instructions .Route .COMPLEX #90caps 04/21/24 [Rx Confirmed 06/22/24] ticagrelor 90 mg tablet 90 mg PO BID 30 days #60 tabs 04/22/24 [Rx Confirmed 06/22/24] amlodipine 2.5 mg tablet 2.5 mg PO DAILY 30 days #30 tabs 04/29/24 [Rx Confirmed 06/22/24] lisinopril 20 mg tablet 20 mg PO DAILY 30 days #30 tabs 04/29/24 [Rx Confirmed 06/22/24] 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 sensor (FreeStyle Ramy 3 Plus Sensor device) #1 ea 05/17/24 [Rx Confirmed 06/22/24] hydroxyzine HCl 25 mg tablet See Rx Instructions .Route .COMPLEX #90 tabs 05/21/24 [Rx Confirmed 06/22/24] famotidine 20 mg tablet 40 mg PO QPM 06/22/24 [History Confirmed 06/22/24] loratadine 10 mg tablet 10 mg PO Q OTHER DAY 06/22/24 [History Confirmed 06/22/24] carvedilol 25 mg tablet See Rx Instructions .Route .COMPLEX #180 tabs 07/21/24 [Rx] sertraline 100 mg tablet See Rx Instructions .Route .COMPLEX #90 tabs 07/21/24 [Rx] hydralazine 100 mg tablet 100 mg PO BID 30 days #60 tabs 08/07/24 [Rx] dextromethorphan-guaifenesin 5 mg-100 mg/5 mL oral liquid (Robitussin Cough- Chest Congestion DM) 10 ml PO Q4-8H PRN cough #500 mL 08/17/24 [Rx] doxycycline hyclate 100 mg tablet 100 mg PO BID 7 days #14 tabs 08/17/24 [Rx] hydrocodone-homatropine 5 mg-1.5 mg/5 mL (5 mL) oral syrup (Hycodan) 5 ml PO Q6HR PRN cough 3 days #200 mL 08/17/24 [Rx] prednisone 20 mg tablet 20 mg PO DAILY 4 days #4 tabs 08/17/24 [Rx] furosemide 80 mg tablet (Lasix) 80 mg PO BID 30 days #60 tabs 08/24/24 [Rx] Exam Physical Exam Vital Signs: Temp Pulse Resp BP Pulse Ox O2 Del Method 98 F 74 22 149/76 H 98 Room Air 08/27/24 21:43 08/28/24 02:09 08/28/24 02:09 08/28/24 02:09 08/27/24 21:43 08/27/24 21:43 Narrative: CONST- Appears well -developed and well nourished. HEAD - Normocephalic and atraumatic EENT-Sclera nonicteric, conjunctive are non-erythemic, moist oral mucosa, pharynx clear NECK-Supple, no cervical lymphadenopathy CARDIAC-normal rate, regular rhythm, S1 & S2. PULM-diminished without wheeze or rhonchi, RA, no accessory muscle use, moist nonproductive cough noted ABD - Soft. Bowel sounds are normal. No distention. No tenderness EXTREM- +1 pitting edema BLE ankles, nontender, AV fistula to LUE-good thrill SKIN- W/D good turgor MS- MAEX4 spontaneously with equal with equal strength NEURO- A&Ox3 speech clear and tongue midline, equal facial symmetry, no focal motor deficits PSYCH-Mood, affect, and behavior appropriate Results - Hospitalist H&P Lab Results Labs: Laboratory Last Values Corrected WBC 6.4 X10E3/uL (4.1-10.5) 08/27/24 23:42 Uncorrected WBC Count 6.4 x10E3/uL (4.1-10.5) 08/27/24 23:42 RBC 3.74 x10E6/uL (3.90-5.60) L 08/27/24 23:42 Hgb 10.9 g/dL (13.0-17.0) L 08/27/24 23:42 Hct 31.8 % (38.8-50.0) L 08/27/24 23:42 MCV 84.9 fl (83.5-101) 08/27/24 23:42 MCH 29.1 pg (27.5-35.2) 08/27/24 23:42 MCHC 34.2 g/dL (32.5-35.6) 08/27/24 23: RDW 14.0 % (12.0-14.8) 08/27/24 23:42 Plt Count 151 x10E3/uL (150-450) 08/27/24 23:42 MPV 7.9 fl (6.6-10.1) 08/27/24 23:42 Neut % (Auto) 70.0 % (.) 08/27/24 23:42 Lymph % (Auto) 18.3 % (.) 08/27/24 23:42 Pershing % (Auto) 7.4 % (.) 08/27/24 23: Eos % (Auto) 3.1 % (.) 08/27/24 23:42 Baso % (Auto) 1.2 % (.) 08/27/24 23:42 Nucleat RBC Rel Count 0.0 /100 WBC (0-0.5) 08/27/24 23:42 Neut # (Auto) 4.5 x10E3/uL (1.8-7.7) 08/27/24 23:42 Lymph # (Auto) 1.2 x10E3/uL (1.00-4.8) 08/27/24 23:42 Pershing # (Auto) 0.5 x10E3/uL (0.0-0.8) 08/27/24 23:42 Eos # (Auto) 0.2 x10E3/uL (0.0-0.45) 08/27/24 23:42 Baso # (Auto) 0.1 x10E3/uL (0.0-0.2) 08/27/24 23:42 Monocyte Dist Width 18.41 % (0.00-20.00) 08/27/24 23:42 PHA Creatinine Clear 18.30 08/27/24 23:42 Sodium 131 mmol/L (136-145) L 08/27/24 23:42 Potassium 4.4 mmol/L (3.5-5.1) 08/27/24 23:42 Chloride 93 mmol/L (98-107) L 08/27/24 23:42 Carbon Dioxide 26.3 mmol/L (21.0-31.0) 08/27/24 23:42 Anion Gap 16.1 mEq/L (6.0-15.0) H 08/27/24 23:42 BUN 48 mg/dL (7-25) H 08/27/24 23:42 Creatinine 5.91 mg/dL (0.70-1.30) H 08/27/24 23:42 Est GFR (CKD-EPI) 11.645 mL/Min 08/27/24 23:42 Glucose 379 mg/dL (70-100) H 08/27/24 23:42 Lactic Acid 0.6 mmol/L (0.5-2.2) 08/28/24 00:41 Calcium 8.9 mg/dL (8.6-10.3) 08/27/24 23:42 Total Bilirubin 0.7 mg/dl (0.3-1.0) 08/27/24 23:42 AST 14 U/L (13-39) 08/27/24 23:42 ALT 12 U/L (7-52) 08/27/24 23:42 Alkaline Phosphatase 60 U/L (34-104) 08/27/24 23:42 Troponin I High Sens 118.0 pg/mL (0.0-20.0) H* 08/27/24 23:42 B-Natriuretic Peptide 4066.0 pg/mL (5-100) H 08/27/24 23:42 Total Protein 6.6 gm/dL (6.4-8.9) 08/27/24 23:42 Albumin 3.7 gm/dL (3.5-5.7) 08/27/24 23:42 Globulin 2.9 gm/dL 08/27/24 23:42 Albumin/Globulin Ratio 1.3 08/27/24 23:42 SARS-CoV-2 Rap RNA(RT-PCR) Negative (Negative) 08/28/24 00:39 Microbiology Results Micro: Microbiology - Results from entire visit 08/28/24 00:39 Nasopharyngeal SARS-CoV-2, Influenza & RSV (PCR) - Final Assessment & Plan Assessment/Plan (1) Acute bacterial bronchitis: (2) Hypertension: (3) Type 1 diabetes mellitus: (4) Chronic combined systolic (congestive) and diastolic (congestive) heart failure: (5) ESRD on hemodialysis: (6) Anemia of renal disease: (7) Cough with hemoptysis: Plan Acute bacterial bronchitis- likely secondary infection as a sequela from his recent RSV infection Cough with hemoptysis High blood pressure and concern for volume overload in the ER. ? Continue ceftriaxone, azithromycin ? Follow blood cultures ? Sputum culture ? Albuterol as needed, duonebs qid - Mucinex as needed Chronic conditions- resume home medications when confirmed, please notify provider when confirmed HTN- carvedilol, hydralazine, amlodipine, lisinopril T1DM- fingersticks ACHS, SSIC, basal insulin Chronic combined systolic and diastolic heart failure- furosemide, ticagrelor ESRD on HD- consult nephrology, dialysis schedule M//, reported he signed up for an extra day on Saturday Anemia of chronic disease- stable, current H&H 10.9/31.8 DVT PPx?SCDs Diet order?renal CODE STATUS?full code +++ +++ I personally saw this patient on the day of the encounter, reviewed the relevant history, performed the renner elements of the physical exam, and discussed and formulated the plan of care with the Nurse Practitioner, and I confirm the Nurse Practitioner's documentation as written. - - - Dwayne Little DO. Internal Medicine + Hospitalist attending physician. IP vs OBS Justification Based on differential dx, clinical care plan, and risk of adverse events, if untreated, in my clinical judgement this patient requires an acute care setting as: INPATIENT because of an expectation of an over 2 midnight stay. Estimated length of stay (# of days): 3 Documented By: Brigid Anderson APRN 08/28/24 0253 Signed By: <Electronically signed by JOSH Anderson> 08/28/24 0331 <Electronically signed by Dwayne Little DO> 08/28/24 0458 [facility] Work Phone: [phone]) 573-189501-10-2025 [place] [address] Hospitalist H&P Signed Patient: Yoel Werner MR#: [id number] : 1985 Acct:[id number] Age/Sex: 39 / M Adm Date: 5 Loc: Room: [address] [place] [address] Type: ADM IN Attending Dr: Dwayne Little DO Copies to: Eusebio Olivares,DO Dwayne Little, DO Brigid Anderson, CAR OILER~ HPI DATE OF EXAMINATION: 08/28/24 CHIEF COMPLAINT: coughing up blood HISTORY OF PRESENT ILLNESS: Mr. Werner is a 39-year-old male with a PMH of ESRD on HD?M/W/F, AV fistula to the left arm, [place],5 cardiac stents, combined systolic and diastolic heart failure, HTN, T1DM, recent RSV the presentsemergency room tonight for complaints of coughing up blood. He says that he has had a moist cough, has been coughing up blood for the last couple of days. Reports it looks like a blood clot. Also reports having fever and chills. Denies chest pain or shortness of breath. He also states that he is gained 12 kg in a week. He doesstate that he went to dialysis on Saturday and Saturday. Reports his dryweight is 70.5 kg. Also states that he has been taking his medications as prescribed which include Lasix twice a day. States he follows with [facility] to provide for pancreas and kidney transplant. He is a former smoker, denies alcohol and illicit drug use. Chest x-ray in the emergency room shows airspace opacities suspicious for pneumonia or pulmonary edema. Nasal swab was negative for COVID, influenza and RSV. EKG is normal sinus rhythm. CBC with an H&H 10.9/31.8. CMP with sodium 131, BUN 48, creatinine 5.91, glucose 379. Troponin 118, BNP 4066.Lactic acid0.6. Patient was medicated with ceftriaxone, azithromycin, Bumex, Reglan, Benadryl, hydralazine. He will be admitted as inpatient to the [facility] telemetry floor. Review of Systems Review of Systems Review of systems: A 10 point review of systems was obtained, negative unless noted in the HPI or below. [facility] Medical History Wellness examination Hypertensive CKD, ESRD on dialysis Secondary hyperparathyroidism Chronic combined systolic (congestive) and diastolic (congestive) heart failure Dependence on renal dialysis EBENEZER (generalized anxiety disorder) Mixed hyperlipidemia Monoclonal (M) protein disease, multiple 'M' protein End-stage renal disease (ESRD) Chronic bronchitis Dyspnea Insomnia Nicotine addiction Cataract left eye-removed ESRD (end stage renal disease) on dialysis ASHD (arteriosclerotic heart disease) Primary hypertension Peyronie's disease Erectile dysfunction due to arterial insufficiency Chronic venous insufficiency Anemia in chronic kidney disease Anasarca CAD (coronary artery disease) Diabetes mellitus Depression AV fistula left arm Asthmatic bronchitis , chronic PTSD (post-traumatic stress disorder) MGUS (monoclonal gammopathy of unknown significance) History of blood transfusion 2020 Diabetic retinopathy History of myocardial infarction 2021 Surgical History H/O heart artery stent (~02/2024) x5, 02/2024 - no intervention, History of bone marrow biopsy H/O eye surgery right and left repair retina Hx of knee surgery scope at age 17 Hx of vasectomy 7yrs ago Family History Mother Liver disease Diabetes Pancreatic cancer Father Diverticulitis Hypertension IBS (irritable bowel syndrome) Stroke Heart disease History of stroke Family history of mental disorder Social History Smoking Status: Former smoker Tobacco Type: cigarettes Substance Use Type: None Substance Abuse Comment: Has not used in a few months ; Medical card that in Sep 2023 Social History Comments: lives with dad Meds Medications and Allergies Allergies No Known Allergies Allergy (Verified 08/27/24 21:43) Home Medications atorvastatin 80 mg tablet 80 mg PO QPM 30 days #30 tabs 11/17/21 [Rx Confirmed 06/22/24] nitroglycerin 0.4 mg sublingual tablet 0.4 mg sublingual Q5MIN.X3 PRN Chest Pain30 days #25 tabs 11/17/21 [Rx Confirmed 06/22/24] aspirin 81 mg chewable tablet (Children's Aspirin) 81 mg PO QAM 09/10/22 [History Confirmed 06/22/24] isosorbide mononitrate 60 mg tablet,extended release 24 hr 60 mg PO BID 11/12/22[History Confirmed 06/22/24] calcium acetate 667 mg tablet 1,334 mg PO TID 11/13/23 [History Confirmed 06/22/24] insulin lispro 100 unit/mL subcutaneous pen (Humalog KwikPen (U-100) Insulin) 1 sliding scale dose subcut USEASDIRECTD 11/13/23 [History Confirmed 06/22/24] insulin glargine 100 unit/mL subcutaneous solution (Lantus U-100 Insulin) 20 unit subcut DAILY 11/26/23 [History Confirmed 06/22/24] albuterol sulfate 90 mcg/actuation aerosol inhaler 2 puff inhalation Q6HR PRN bronchospasm 30 days #8.5 grams 03/02/24 [Rx Confirmed 06/22/24] 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 meter,continuous (FreeStyle Ramy 3 [place]) #1 ea 03/02/24 [Rx Confirmed 06/22/24] 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 meter,continuous (FreeStyle Ramy 3 [place]) #1 ea 03/19/24 [Rx Confirmed 06/22/24] albuterol sulfate 2.5 mg/3 mL (0.083 %) solution for nebulization 2.5 mg (3 mL) inhalation Q6HR PRNcough 30 days #75 mL 03/25/24 [Rx Confirmed 06/22/24] omeprazole 40 mg capsule,delayed release See Rx Instructions .Route .COMPLEX #90caps 04/21/24 [Rx Confirmed 06/22/24] ticagrelor 90 mg tablet 90 mg PO BID 30 days #60 tabs 04/22/24 [Rx Confirmed 06/22/24] amlodipine 2.5 mg tablet 2.5 mg PO DAILY 30 days #30 tabs 04/29/24 [Rx Confirmed 06/22/24] lisinopril 20 mg tablet 20 mg PO DAILY 30 days #30 tabs 04/29/24 [Rx Confirmed 06/22/24] 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 sensor (FreeStyle Ramy 3 Plus Sensor device) #1 ea 05/17/24 [Rx Confirmed 06/22/24] hydroxyzine HCl 25 mg tablet See Rx Instructions .Route .COMPLEX #90 tabs 05/21/24 [Rx Confirmed 06/22/24] famotidine 20 mg tablet 40 mg PO QPM 06/22/24 [History Confirmed 06/22/24] loratadine 10 mg tablet 10 mg PO Q OTHER DAY 06/22/24 [History Confirmed 06/22/24] carvedilol 25 mg tablet See Rx Instructions .Route .COMPLEX #180 tabs 07/21/24 [Rx] sertraline 100 mg tablet See Rx Instructions .Route .COMPLEX #90 tabs 07/21/24 [Rx] hydralazine 100 mg tablet 100 mg PO BID 30 days #60 tabs 08/07/24 [Rx] dextromethorphan-guaifenesin 5 mg-100 mg/5 mL oral liquid (Robitussin Cough- Chest Congestion DM) 10ml PO Q4-8H PRN cough #500 mL 08/17/24 [Rx] doxycycline hyclate 100 mg tablet 100 mg PO BID 7 days #14 tabs 08/17/24 [Rx] hydrocodone-homatropine 5 mg-1.5 mg/5 mL (5 mL) oral syrup (Hycodan) 5 ml PO Q6HR PRN cough 3 days #200 mL 08/17/24 [Rx] prednisone 20 mg tablet 20 mg PO DAILY 4 days #4 tabs 08/17/24 [Rx] furosemide 80 mg tablet (Lasix) 80 mg PO BID 30 days #60 tabs 08/24/24 [Rx] Exam Physical Exam Vital Signs: Temp Pulse Resp BP Pulse Ox O2 Del Method 98 F 74 22 149/76 H 98 Room Air 08/27/24 21:43 08/28/24 02:09 08/28/24 02:09 08/28/24 02:09 08/27/24 21:43 08/27/24 21:43 Narrative: CONST- Appears well -developed and well nourished. HEAD - Normocephalic and atraumatic EENT-Sclera nonicteric, conjunctive are non-erythemic, moist oral mucosa, pharynx clear NECK-Supple, no cervical lymphadenopathy CARDIAC-normal rate, regular rhythm, S1 & S2. PULM-diminished without wheeze or rhonchi, RA, no accessory muscle use, moist nonproductive cough noted ABD - Soft. Bowel sounds are normal. No distention. No tenderness EXTREM- +1 pitting edema BLE ankles, nontender, AV fistula to LUE-good thrill SKIN- W/D good turgor MS- MAEX4 spontaneously with equal with equal strength NEURO- A&Ox3 speech clear and tongue midline, equal facial symmetry, no focal motor deficits PSYCH-Mood, affect, and behavior appropriate Results - Hospitalist H&P Lab Results Labs: Laboratory Last Values Corrected WBC 6.4 X10E3/uL (4.1-10.5) 08/27/24 23:42 Uncorrected WBC Count 6.4 x10E3/uL (4.1-10.5) 08/27/24 23:42 RBC 3.74 x10E6/uL (3.90-5.60) L 08/27/24 23:42 Hgb 10.9 g/dL (13.0-17.0) L 08/27/24 23:42 Hct 31.8 % (38.8-50.0) L 08/27/24 23:42 MCV 84.9 fl (83.5-101) 08/27/24 23:42 MCH 29.1 pg (27.5-35.2) 08/27/24 23:42 MCHC 34.2 g/dL (32.5-35.6) 08/27/24 23:42 RDW 14.0 % (12.0-14.8) 08/27/24 23:42 Plt Count 151 x10E3/uL (150-450) 08/27/24 23:42 MPV 7.9 fl (6.6-10.1) 08/27/24 23:42 Neut % (Auto) 70.0 % (.) 08/27/24 23:42 Lymph % (Auto) 18.3 % (.) 08/27/24 23:42 Pershing % (Auto) 7.4 % (.) 08/27/24 23:42 Eos % (Auto) 3.1 % (.) 08/27/24 23:42 Baso % (Auto) 1.2 % (.) 08/27/24 23:42 Nucleat RBC Rel Count 0.0 /100 WBC (0-0.5) 08/27/24 23:42 Neut # (Auto) 4.5 x10E3/uL (1.8-7.7) 08/27/24 23:42 Lymph # (Auto) 1.2 x10E3/uL (1.00-4.8) 08/27/24 23:42 Pershing # (Auto) 0.5 x10E3/uL (0.0-0.8) 08/27/24 23:42 Eos # (Auto) 0.2 x10E3/uL (0.0-0.45) 08/27/24 23:42 Baso # (Auto) 0.1 x10E3/uL (0.0-0.2) 08/27/24 23:42 Monocyte Dist Width 18.41 % (0.00-20.00) 08/27/24 23:42 PHA Creatinine Clear 18.30 08/27/24 23:42 Sodium 131 mmol/L (136-145) L 08/27/24 23:42 Potassium 4.4 mmol/L (3.5-5.1) 08/27/24 23:42 Chloride 93 mmol/L (98-107) L 08/27/24 23:42 Carbon Dioxide 26.3 mmol/L (21.0-31.0) 08/27/24 23:42 Anion Gap 16.1 mEq/L (6.0-15.0) H 08/27/24 23:42 BUN 48 mg/dL (7-25) H 08/27/24 23:42 Creatinine 5.91 mg/dL (0.70-1.30) H 08/27/24 23:42 Est GFR (CKD-EPI) 11.645 mL/Min 08/27/24 23:42 Glucose 379 mg/dL (70-100) H 08/27/24 23:42 Lactic Acid 0.6 mmol/L (0.5-2.2) 08/28/24 00:41 Calcium 8.9 mg/dL (8.6-10.3) 08/27/24 23:42 Total Bilirubin 0.7 mg/dl (0.3-1.0) 08/27/24 23:42 AST 14 U/L (13-39) 08/27/24 23:42 ALT 12 U/L (7-52) 08/27/24 23:42 Alkaline Phosphatase 60 U/L (34-104) 08/27/24 23:42 Troponin I High Sens 118.0 pg/mL (0.0-20.0) H* 08/27/24 23:42 B-Natriuretic Peptide 4066.0 pg/mL (5-100) H 08/27/24 23:42 Total Protein 6.6 gm/dL (6.4-8.9) 08/27/24 23:42 Albumin 3.7 gm/dL (3.5-5.7) 08/27/24 23:42 Globulin 2.9 gm/dL 08/27/24 23:42 Albumin/Globulin Ratio 1.3 08/27/24 23:42 SARS-CoV-2 Rap RNA(RT-PCR) Negative (Negative) 08/28/24 00:39 Microbiology Results Micro: Microbiology - Results from entire visit 08/28/24 00:39 Nasopharyngeal SARS-CoV-2, Influenza & RSV (PCR) - Final Assessment & Plan Assessment/Plan (1) Acute bacterial bronchitis: (2) Hypertension: (3) Type 1 diabetes mellitus: (4) Chronic combined systolic (congestive) and diastolic (congestive) heart failure: (5) ESRD on hemodialysis: (6) Anemia of renal disease: (7) Cough with hemoptysis: Plan Acute bacterial bronchitis- likely secondary infection as a sequela from his recent RSV infection Cough with hemoptysis High blood pressure and concern for volume overload in the ER. ? Continue ceftriaxone, azithromycin ? Follow blood cultures ? Sputum culture ? Albuterol as needed, duonebs qid - Mucinex as needed Chronic conditions- resume home medications when confirmed, please notify provider when confirmed HTN- carvedilol, hydralazine, amlodipine, lisinopril T1DM- fingersticks ACHS, SSIC, basal insulin Chronic combined systolic and diastolic heart failure- furosemide, ticagrelor ESRD on HD- consult nephrology, dialysis schedule M/W/F, reported he signed up for an extra day on Saturday Anemia of chronic disease- stable, current H&H 10.9/31.8 DVT PPx?SCDs Diet order?renal CODE STATUS?full code +++ +++ I personally saw this patient on the day of the encounter, reviewed the relevant history, performedthe renner elements of the physical exam, and discussed and formulated the plan of care with the NursePractitioner, and I confirm the Nurse Practitioner's documentation as written. - - - Dwayne Little DO. Internal Medicine + Hospitalist attending physician. IP vs OBS Justification Based on differential dx, clinical care plan, and risk of adverse events, if untreated, in my clinical judgement this patient requires an acute care setting as: INPATIENT because of an expectation ofan over 2 midnight stay. Estimated length of stay (# of days): 3 Documented By: Brigid Anderson APRN 08/28/24 0253 Signed By: 08/28/24 0331 08/28/24 0458 [facility]01-10-2025 Evaluation note* Diagnosis Onset Date Resolution Status Admit Date Acute bacterial bronchitis resolved August 28, 2024 1:27am Anemia of renal disease resolved J anuary 2024 1:27am Cough with hemoptysis resolved Aug 1:27am ESRD on hemodialysis resolved 2024 1:27am Hypertensive CKD, ESRD on dialysis resolved August 28 1:27am Secondary hyperparathyroidism resolv ed August 28, 2024 1:27am CAP (community acquired pneumonia) deleted August 28 1:27am Chronic combined systolic (congestive) and diastolic (congestive) heart failure deleted 2024 1:27am Hypertension deleted August 1:27am Pulmonary edema deleted August 192024 1:27am Type 1 diabetes mellitus deleted August 28, 2024 1:27am Type 2 diabetes mellitus wit h diabetic chronic kidney disease deleted August 28, 2024 1:27am ASHD (arteriosclerotic heart disease) acute September 02 1:01pm Insomnia acute September 02, 2024 1:01pm Primary hypertension acute 2024 1:01pm Wellness examination acute 2024 1:01pm ESRD on hemodialysis resolved 2024 1:01pm CAP (community acquired pneumonia) deleted September 02 1:01pm Nicotine addiction deleted 2024 1:01pm Anemia of renal disease resolved J anuary 2024 1:09am CAP (community acquired pneumonia) resolved September 16 1:09am Constipation resolved August 1:09am COVID-19 resolved September 16, 2024 1:09am ESRD on hemodialysis resolved 2024 1:09am Hypertensive CKD, ESRD on dialysis resolved September 16 1:09am Secondary hyperparathyroidism resolv ed September 16, 2024 1:09am ASHD (arteriosclerotic heart disease) acute October 14 12:55pm Primary hypertension acute 2024 12:55pm [facility] Work Phone: 1(943) 826-491701-10-2025 Evaluation note* Diagnosis Onset Date Resolution Status Admit Date Acute bacterial bronchitis resolved August 28, 2024 1:27am Anemia of renal disease resolved J anuary 2024 1:27am Cough with hemoptysis resolved Aug 1:27am ESRD on hemodialysis resolved 2024 1:27am Hypertensive CKD, ESRD on dialysis resolved August 28 1:27am Secondary hyperparathyroidism resolv ed August 28, 2024 1:27am CAP (community acquired pneumonia) deleted August 28 1:27am Chronic combined systolic (congestive) and diastolic (congestive) heart failure deleted 2024 1:27am Hypertension deleted August 1:27am Pulmonary edema deleted August 192024 1:27am Type 1 diabetes mellitus deleted August 28, 2024 1:27am Type 2 diabetes mellitus wit h diabetic chronic kidney disease deleted August 28, 2024 1:27am ASHD (arteriosclerotic heart disease) acute September 02 1:01pm Insomnia acute September 02, 2024 1:01pm Primary hypertension acute 2024 1:01pm Wellness examination acute 2024 1:01pm ESRD on hemodialysis resolved 2024 1:01pm CAP (community acquired pneumonia) deleted September 02 1:01pm Nicotine addiction deleted 2024 1:01pm Anemia of renal disease resolved J anuary 2024 1:09am CAP (community acquired pneumonia) resolved September 16 1:09am Constipation resolved August 1:09am COVID-19 resolved September 16, 2024 1:09am ESRD on hemodialysis resolved 2024 1:09am Hypertensive CKD, ESRD on dialysis resolved September 16 1:09am Secondary hyperparathyroidism resolv ed September 16, 2024 1:09am ASHD (arteriosclerotic heart disease) acute October 14 12:55pm Chronic bronchitis, mucopurulent acu te October 14, 2024 12:55pm Chronic heart failure with preserved ejection fraction (HFpEF) acute October 14 12:55pm Contusion of right lower extremity acute October 14 12:55pm Primary hypertension acute 2024 12:55pm Type 1 diabetes mellitus wit h hyperglycemia acute October 14 12:55pm ESRD (end stage renal diseas e) on dialysis deleted October 14 12:55pm Nicotine addiction deleted 2024 12:55pm [facility] Work Phone: 1(966) 853-492501-10-2025 Evaluation note* Diagnosis Onset Date Resolution Status Admit Date Acute bacterial bronchitis resolved August 28, 2024 1:27am Anemia of renal disease resolved J anuary 2024 1:27am Cough with hemoptysis resolved Aug 1:27am ESRD on hemodialysis resolved 2024 1:27am Hypertensive CKD, ESRD on dialysis resolved August 28 1:27am Secondary hyperparathyroidism resolv ed August 28, 2024 1:27am CAP (community acquired pneumonia) deleted August 28 1:27am Chronic combined systolic (congestive) and diastolic (congestive) heart failure deleted 2024 1:27am Hypertension deleted August 1:27am Pulmonary edema deleted August 192024 1:27am Type 1 diabetes mellitus deleted August 28, 2024 1:27am Type 2 diabetes mellitus wit h diabetic chronic kidney disease deleted August 28, 2024 1:27am ASHD (arteriosclerotic heart disease) acute September 02 1:01pm Insomnia acute September 02, 2024 1:01pm Primary hypertension acute 2024 1:01pm Wellness examination acute 2024 1:01pm ESRD on hemodialysis resolved 2024 1:01pm CAP (community acquired pneumonia) deleted September 02 1:01pm Nicotine addiction deleted 2024 1:01pm Anemia of renal disease resolved J anuary 2024 1:09am CAP (community acquired pneumonia) resolved September 16 1:09am Constipation resolved August 1:09am COVID-19 resolved September 16, 2024 1:09am ESRD on hemodialysis resolved Lonnie margoth 2024 1:09am Hypertensive CKD, ESRD on dialysis resolved September 16 1:09am Secondary hyperparathyroidism resolv ed September 16, 2024 1:09am ASHD (arteriosclerotic heart disease) acute October 14 12:55pm Chronic bronchitis, mucopurulent acu te October 14, 2024 12:55pm Chronic heart failure with preserved ejection fraction (HFpEF) acute October 14 12:55pm Contusion of right lower extremity acute October 14 12:55pm Primary hypertension acute 2024 12:55pm Type 1 diabetes mellitus wit h hyperglycemia acute October 14 12:55pm ESRD (end stage renal diseas e) on dialysis deleted October 14 12:55pm Nicotine addiction deleted 2024 12:55pm Acute hyperkalemia acute November 01, 2024 10:56pm Missed dialysis acute October 10:56pm T wave inversion in EKG acute M arch 2024 10:56pm Uncontrolled hypertension acute November 01, 2024 10:56pm Uremia acute November 01 10:56pm [facility] Work Phone: 1(153) 842-523601-10-2025 Evaluation note* Diagnosis Onset Date Resolution Status Admit Date Acute bacterial bronchitis resolved August 28, 2024 1:27am Anemia of renal disease resolved J anuary 2024 1:27am Cough with hemoptysis resolved Aug 1:27am ESRD on hemodialysis resolved 2024 1:27am Hypertensive CKD, ESRD on dialysis resolved August 28 1:27am Secondary hyperparathyroidism resolv ed August 28, 2024 1:27am CAP (community acquired pneumonia) deleted August 28 1:27am Chronic combined systolic (congestive) and diastolic (congestive) heart failure deleted 2024 1:27am Hypertension deleted August 1:27am Pulmonary edema deleted August 192024 1:27am Type 1 diabetes mellitus deleted August 28, 2024 1:27am Type 2 diabetes mellitus wit h diabetic chronic kidney disease deleted August 28, 2024 1:27am ASHD (arteriosclerotic heart disease) acute September 02 1:01pm Insomnia acute September 02, 2024 1:01pm Primary hypertension acute 2024 1:01pm Wellness examination acute 2024 1:01pm ESRD on hemodialysis resolved 2024 1:01pm CAP (community acquired pneumonia) deleted September 02 1:01pm Nicotine addiction deleted 2024 1:01pm Anemia of renal disease resolved J anuary 2024 1:09am CAP (community acquired pneumonia) resolved September 16 1:09am Constipation resolved August 1:09am COVID-19 resolved September 16, 2024 1:09am ESRD on hemodialysis resolved 2024 1:09am Hypertensive CKD, ESRD on dialysis resolved September 16 1:09am Secondary hyperparathyroidism resolv ed September 16, 2024 1:09am ASHD (arteriosclerotic heart disease) acute October 14 12:55pm Chronic bronchitis, mucopurulent acu te October 14, 2024 12:55pm Chronic heart failure with preserved ejection fraction (HFpEF) acute October 14 12:55pm Contusion of right lower extremity acute October 14 12:55pm Primary hypertension acute 2024 12:55pm Type 1 diabetes mellitus wit h hyperglycemia acute October 14 12:55pm ESRD (end stage renal diseas e) on dialysis deleted October 14 12:55pm Nicotine addiction deleted 2024 12:55pm Acute hyperkalemia acute November 01, 2024 10:56pm ESRD (end stage renal disease) acute November 01, 2024 10:56pm Missed dialysis acute October 10:56pm T wave inversion in EKG acute 2024 10:56pm Uncontrolled hypertension acute November 01, 2024 10:56pm Uremia acute November 01 10:56pm Hypertensive CKD, ESRD on dialysis resolved November 01, 2024 10:56pm Secondary hyperparathyroidism resolv ed November 01, 2024 10:56pm Anemia in chronic kidney disease shade ctive November 01, 2024 10:56pm Type 1 diabetes mellitus wit h hyperglycemia inactive November 01, 2024 10:56pm ESRD (end stage renal diseas e) on dialysis deleted November 01, 2024 10:56pm [facility] Work Phone: [phone]) 887-934212-30-2024 NotePatient was a No-Show for his 3pm echo. [facility]12-26-2024 NoteUT Cardiology - [facility] Subjective Yoel Werner is a 39 y.o. year old male patient being seen for Cardiac evaluation for renal transplant (ROLL HAND[employer]ER evaluation w/ no testing) Patient Active Problem List Diagnosis Acute hypoxic respiratory failure (CMS/HCC) Acute metabolic encephalopathy Anasarca Anemia in chronic kidney disease Coronary artery disease involving [place] coronary artery of [place] heart without angina pectoris AV fistula stenosis (CMS/HCC) BMI 21.0-21.9, adult Chest pain CHF (congestive heart failure) (CMS/HCC) Chronic bronchitis, mucopurulent (CMS/HCC) Chronic venous insufficiency Cigarette nicotine dependence without complication Current every day smoker Diabetes mellitus (CMS/HCC) Encephalopathy Erectile dysfunction due to arterial insufficiency End stage renal disease (CMS/HCC) Hypertension, essential EBENEZER (generalized anxiety disorder) HCAP (healthcare-associated pneumonia) History of [place] (myocardial infarction) Hyperkalemia Hyperlipidemia Hypertensive emergency Hypoxemia Ischemic cardiomyopathy MGUS (monoclonal gammopathy of unknown significance) Mild episode of recurrent major depressive disorder (CMS/HCC) Monoclonal (M) protein disease, multiple 'M' protein Nicotine addiction NSTEMI (non-ST elevated myocardial infarction) (CMS/HCC) Peyronie's disease Secondary hyperparathyroidism (CMS/HCC) Status post insertion of drug eluting coronary artery stent Pre-transplant evaluation for kidney transplant Hypoglycemia unawareness associated with type 2 diabetes mellitus (CMS/HCC) Family History Problem Relation Name Age of Onset Pancreatic cancer Mother Hypertension Father Coronary artery disease Brother 55 Lung cancer Paternal Grandmother Coronary artery disease Paternal Grandfather HPI Yoel Werner is seen as a new patient for cardiac evaluation for possible renal and pancreas transplant, referred by Dr. Charles. He is a 39 year old male referred for kidney transplant with ESRD due to DM on insulin (age 17), who began dialysis 02/2023 and currently dialysis 3 days a week (M/W/) via Left upper arm AV fistula. Past medical history is significant for HTN, chronic bronchitis and ARF, anemia, acute metabolic encephalopathy, ex-smoker quit recently, anxiety and depression, HLD, ischemic cardiomyopathy, MGUS, NSTEMI with severe three-vessel disease s/p stenting to the LAD and RCA between October of 2021 and January of 2023 (2 in left and three in right) after COVID. He does not have any history of DVT/PE/clotting events. He is on any anticoagulation 81mg ASA and Plavix. he denies chest pain, shortness of breath, palpitations, dizziness, syncope and leg edema. he has good exercise tolerance. There is no claudication. Review of Systems Constitutional: Negative for fever and night sweats. HENT: Negative. Eyes: Negative. Cardiovascular: Negative. Respiratory: Positive for cough. Negative for wheezing. Hematologic/Lymphatic: Does not bruise/bleed easily. Skin: Negative for rash. Musculoskeletal: Positive for back pain and joint pain. Neurological: Negative for dizziness, headaches and seizures. Psychiatric/Behavioral: Negative for depression. Objective Visit Vitals BP 160/81 (BP Location: Right arm, Patient Position: Sitting, BP Cuff Size: Adult) Pulse 74 Ht 1.854 m (6' 1 ) Wt 73.8 kg (162 lb 9.6 oz) SpO2 97% BMI 21.45 kg/m??? BSA 1.95 m??? Physical Exam Constitutional: Appearance: He is well-developed. He is not ill-appearing. HENT: Head: Normocephalic and atraumatic. Nose: Nose normal. Eyes: General: No scleral icterus. Pupils: Pupils are equal, round, and reactive to light. Neck: Thyroid: No thyromegaly. Vascular: No JVD. Cardiovascular: Rate and Rhythm: Normal rate and regular rhythm. Pulses: Radial pulses are 2+ on the right side and 2+ on the left side. Heart sounds: Normal heart sounds. No murmur heard. No friction rub. No gallop. Arteriovenous access: Left arteriovenous access is present. Pulmonary: Effort: Pulmonary effort is normal. No respiratory distress. Breath sounds: Normal breath sounds. No wheezing or rales. Chest: Chest wall: No tenderness. Abdominal: General: Bowel sounds are normal. There is no distension. Palpations: Abdomen is soft. Tenderness: There is no abdominal tenderness. Musculoskeletal: General: No swelling. Cervical back: Neck supple. Skin: General: Skin is warm and dry. Neurological: General: No focal deficit present. Mental Status: He is alert and oriented to person, place, and time. Psychiatric: Mood and Affect: Mood normal. Behavior: Behavior is cooperative. Judgment: Judgment normal. Allergies Allergies Allergen Reactions Ticagrelor Shortness of breath Medications Current Outpatient Medications: Accu-Chek Guide Me Glucose Mtr misc, See administration instructions., Disp: , Rfl: Accu-Chek Guide (more content not included)...[facility]12-19-2024 NoteNotified coordinator Vik Dan, patent is ok for kidney/pancreas evaluationUn[facility]-26-[facility]24 NoteI saw the patient in clinic. They understood all the financial responsibilities associated with a kidney transplant and the expense of prescriptions after transplant. This includes all co-pays, deductibles and out of pocket expenses. The patient was instructed to contact me of any insurance or financial changes. My card was given to them for direct contact. The patient was given copies of all information and patient financial responsibility forms they signed. [facility]11-26-2024 NoteTransplant Nutrition Assessment Name: Yoel Werner : 1985 Assessment date: 07/14/2024 PMH: ischemic cardiomyopathy, DM, anasarca, anemia, ESRD, [place], HLD, HTN. Dialysis HX: on HD Height: 185.4cm Weight: 71.7kg BMI Classification: Normal range (18.5 - 24.99)Body mass index is 20.85 kg/m???. Appetite: Poor. Weight loss 22#. Since February last year when he started dialysis . Avoids hot (temp foods) to avoid vomiting. Also reports being constipated. Context: UBW was 180#. Weight fluctuates 69kg to 74kg at dialysis. Current diet: Takes 4kg off at dialysis treatments, he reports that he has a hard time controlling his water intake. Diet- low processed, sodium foods. Though per diet recall, his diet is very high in sodium. Nutrition/Diet: Most meals eaten at home. Lives by himself and does his own cooking. Diabetes Management: No longer has a decom or ramy because insurance won't pay for the supplies. Checks blood sugars when I don't feel good . This AM was 60. On lantus 20units and humalog SS. He is not sure what his current A1C is. Reports lots of highs and lows, PCP manages, he does not have an collections curator. Diet Recall Breakfast: Skips Lunch: Snacks on pretzels Dinner: spaghettios, ramen noodles. Chicken breast. Potatoes. Pasta, bread. No vegetables Snacks: occasional little josh Drinks: water and diet soda Supplements: Denies at this time due to causing constipation Dietary & Physical Activity Compliance: -Activity: Walks around his apartment, no exercise regimen -Diet:Does not comply with low sodium diet., Does not comply with diabetic diet., and Does not comply to free water restrictions. Diet is low in fruits and vegetables. High in processed foods. Appears in adequate in protein. Reported Medications/Supplements: phosxCloud Nutrition Labs: phos 4.2, states albumin is WNL Nutrition Social History: He reports his food stamps were taken away because his disability amount went up. Eats Canned foods and ramen noodles often due to cost of food. Associated Symptoms: Constipation (denies taking stool softeners and laxatives, uses suppositories PRN), Reports vomiting when eating hot foods or coughing hard . Missing some bottom teeth Skin Appearance: ok Nutrition Risk: moderate Patient Goals: Diet: Follow meal plan given and portion control., Glycemic control., Increase fiber., Increase fruits., Increase vegetables., and limit processed foods. Exercise: 30 minutes physical activity most days of the week. Notes: The patient has a poor diet. He is eating canned food, ramen noodles and sweets. Skips breakfast and lunch. Diet is low in protein, fruits and vegetables. Appears to have food insecurity issues (no longer receives food stamps). Complains of chronic constipation and vomiting when eating any hot (temp) foods. He does not know his last A1C. Does not check his blood sugars regularly, only when feeling low. Does not follow with an collections curator. -Patient has questionable compliance issues. -RD discussed the importance of good blood sugar control for the success of his kidney transplant and he needs to follow a diabetic diet. Discussed eating three meals daily, including more protein sources, fruits and vegetables. Patient was not interested in diet education. -Recommend checking an A1C, consider referral to an collections curator. -Consider referral to a GI doctor due to chronic constipation and frequent vomiting to rule out gastroparesis. [facility] NotePre- Transplant Kidney Evaluation Surgery Consultation Chief Complaint Patient presents with Kidney Eval PCP: Eusebio Olivares DO Txp Referring: Nancy Haas MD Preferred Pharmacy: [facility]/pharmacy #[id number] [place] [address] Organ: Kidney Subjective Visit Vitals BP 127/74 (BP Location: Right arm, Patient Position: Sitting, BP Cuff Size: Adult) Pulse 72 Resp 17 Ht 1.854 m (6' 1 ) Wt 71.7 kg (158 lb) SpO2 99% BMI 20.85 kg/m??? BSA 1.92 m??? Allergies Allergen Reactions Ticagrelor Shortness of breath Medication Documentation Review Audit Reviewed by Lesa Hurt MA (Pre Parole Counseling Aide) on 07/14/24 at 0854 Medication Order Taking? Sig Documenting Provider Last Dose Status Accu-Chek Guide Me Glucose Mtr misc [id number] Yes See administration instructions. Historical Provider, Taking Active Accu-Chek Guide test strips strip [id number] Yes USE TO TEST FOUR TIMES A DAY DIRECTED Historical Provider, Taking Active Accu-Chek Softclix Lancets misc [id number] Yes USE TO TEST BLOOD SUGAR TWICE DAILY Historical ProviderMD Taking Active albuterol 90 mcg/actuation inhaler [id number] Yes 2 puffs. Historical Provider, Taking Active aluminum sulfate-calcium acetate (Domeboro) 952-1,347 mg packet [id number] Yes 1,334 mg. Historical Provider, Taking Active amLODIPine (Norvasc) 2.5 mg tablet [id number] Yes Take 2.5 mg by mouth in the morning. Historical ProviderMD Taking Active aspirin 81 mg chewable tablet [id number] Yes 81 mg. Historical Provider, Taking Active atorvastatin (Lipitor) 80 mg tablet [id number] Yes 80 mg. Historical ProviderMD Taking Active azithromycin (Zithromax) 250 mg tablet [id number] No TAKE 2 TABLETS BY MOUTH TODAY, THEN TAKE 1 TABLET DAILY FOR 4 DAYS DIRECTED Historical ProviderMD Not Taking Active brimonidine (Alphagan) 0.2 % ophthalmic solution [id number] No Administer 1 drop into affected eye(s) 3 times a day. Historical ProviderMD Not Taking Active calcium acetate (Phoslo) 667 mg capsule [id number] Yes Take 1,334 mg by mouth. Historical ProviderMD Taking Active carvedilol (Coreg) 25 mg tablet [id number] Yes Take 25 mg by mouth with breakfast and with evening meal. Historical Provider, Taking Differently Active clindamycin (Cleocin) 150 mg capsule [id number] No TAKE 4 CAPSULES BY MOUTH 1 HOUR PRIOR TO APPOINTMENT Historical ProviderMD Not Taking Active clopidogrel (Plavix) 75 mg tablet [id number] Yes Take 75 mg by mouth in the morning. Historical ProviderMD Taking Active Dexcom G6 Sensor device [id number] No CHANGE SENSOR EVERY 10 DAYS. ICD 10 E10.65 Historical ProviderMD Not Taking Active Dexcom G6 Transmitter device [id number] No CHANGE EVERY 90 DAYS DX E10.65 Historical ProviderMD Not Taking Active diclofenac (Voltaren) 1 % topical gel [id number] Yes Apply 2 g topically 3 times a day. Historical ProviderMD Taking Active dorzolamide HCl/PF (dorzolamide, PF,) 2 % drops [id number] No Administer 1 drop into affected eye(s) 3 times a day. Historical ProviderMD Not Taking Active ergocalciferol (Vitamin D-2) 1.25 MG (97102 Units) capsule [id number] No Take 1 capsule by mouth. Historical ProviderMD Not Taking Active escitalopram (Lexapro) 10 mg tablet [id number] No Take 10 mg by mouth. Historical ProviderMD Not Taking Active famotidine (Pepcid) 20 mg tablet [id number] Yes .COMPLEX Historical ProviderMD Taking Active ferric gluconate (Ferrlecit) 62.5 mg/5 mL injection [id number] No Infuse 62.5 mg into a venous catheter. Historical ProviderMD Not Taking Active furosemide (Lasix) 40 mg tablet [id number] Yes Take 80 mg by mouth two times daily. Historical Provider, Taking Differently Active GaviLyte-G 236-22.74-6.74 -5.86 gram solution [id number] No TAKE 240 ML EVERY 10 MINUTES UNTIL FECAL EFFLUENT IS CLEAR Historical ProviderMD Not Taking Active heparin sodium,porcine/PF (heparin, porcine, PF,) 1,000 unit/mL solution [id number] Yes Infuse 1,000 Units into a venous catheter. Historical Provider, Taking Active hydrALAZINE (Apresoline) 50 mg tablet [id number] Yes Take 100 mg by mouth two times daily. Historical Provider, Taking Differently Active hydrOXYzine HCL (Atarax) 25 mg tablet [id number] Yes Take 25 mg by mouth. Historical Provider, Taking Active hyoscyamine (Anaspaz,Levsin) 0.125 mg tablet [id number] No TAKE 1 TABLET BY MOUTH EVERY 6 HOURS NEEDED FOR ABDOMINAL PAIN Historical ProviderMD Not Taking Active insulin glargine (Lantus) 100 unit/mL (3 mL) injection pen [id number] Yes Inject 20 Units under the skin in the morning. Historical ProviderMD Taking Active insulin lispro (HumaLOG) 100 unit/mL injection pen [id number] Yes Inject 4 times a day before meals & bedtime. [id number]; 170-189=3units; 190-209=4units; 210-229=6units; 230-249=8units; 250-269=9units; 270-289=10units; 290-30 (more content not included)...[facility]11-26-2024 NotePre-Transplant Evaluation Nephrology Consult Chief Complaint Patient presents with Kidney Eval PCP: DO Paras Leblancp Referring: Nancy Haas MD Preferred Pharmacy: [facility]/pharmacy #[id number] [place] [id number] Organ: Kidney Subjective Visit Vitals BP 127/74 (BP Location: Right arm, Patient Position: Sitting, BP Cuff Size: Adult) Pulse 72 Resp 17 Ht 1.854 m (6' 1 ) Wt 71.7 kg (158 lb) SpO2 99% BMI 20.85 kg/m??? BSA 1.92 m??? Allergies Allergen Reactions Ticagrelor Shortness of breath Medication Documentation Review Audit Reviewed by Lesa Hurt MA (Pre Parole Counseling Aide) on 07/14/24 at 0854 Medication Order Taking? Sig Documenting Provider Last Dose Status Accu-Chek Guide [place] Glucose Mtr [facility] [id number] Yes See administration instructions. Historical Provider, Taking Active Accu-Chek Guide test strips strip [id number] Yes USE TO TEST FOUR TIMES A DAY DIRECTED Historical Provider, Taking Active Accu-Chek Softclix Lancets mis [id number] Yes USE TO TEST BLOOD SUGAR TWICE DAILY Historical Provider, Taking Active albuterol 90 mcg/actuation inhaler [id number] Yes 2 puffs. Historical Provider, Taking Active aluminum sulfate-calcium acetate (Domeboro) 952-1,347 mg packet [id number] Yes 1,334 mg. Historical Provider, Taking Active amLODIPine (Norvasc) 2.5 mg tablet [id number] Yes Take 2.5 mg by mouth in the morning. Historical Provider, Taking Active aspirin 81 mg chewable tablet [id number] Yes 81 mg. Historical Provider, Taking Active atorvastatin (Lipitor) 80 mg tablet [id number] Yes 80 mg. Historical Provider, Taking Active azithromycin (Zithromax) 250 mg tablet [id number] No TAKE 2 TABLETS BY MOUTH TODAY, THEN TAKE 1 TABLET DAILY FOR 4 DAYS DIRECTED Historical ProviderMD Not Taking Active brimonidine (Alphagan) 0.2 % ophthalmic solution [id number] No Administer 1 drop into affected eye(s) 3 times a day. Historical Provider, Not Taking Active calcium acetate (Phoslo) 667 mg capsule [id number] Yes Take 1,334 mg by mouth. Historical Provider, Taking Active carvedilol (Coreg) 25 mg tablet [id number] Yes Take 25 mg by mouth with breakfast and with evening meal. Historical Provider, Taking Differently Active clindamycin (Cleocin) 150 mg capsule [id number] No TAKE 4 CAPSULES BY MOUTH 1 HOUR PRIOR TO APPOINTMENT Historical ProviderMD Not Taking Active clopidogrel (Plavix) 75 mg tablet [id number] Yes Take 75 mg by mouth in the morning. Historical ProviderMD Taking Active Dexcom G6 Sensor device [id number] No CHANGE SENSOR EVERY 10 DAYS. ICD 10 E10.65 Historical ProviderMD Not Taking Active Dexcom G6 Transmitter device [id number] No CHANGE EVERY 90 DAYS DX E10.65 Historical MD Ramo Not Taking Active diclofenac (Voltaren) 1 % topical gel [id number] Yes Apply 2 g topically 3 times a day. Historical ProviderMD Taking Active dorzolamide HCl/PF (dorzolamide, PF,) 2 % drops [id number] No Administer 1 drop into affected eye(s) 3 times a day. Historical ProviderMD Not Taking Active ergocalciferol (Vitamin D-2) 1.25 MG (20189 Units) capsule [id number] No Take 1 capsule by mouth. Historical ProviderMD Not Taking Active escitalopram (Lexapro) 10 mg tablet [id number] No Take 10 mg by mouth. Historical ProviderMD Not Taking Active famotidine (Pepcid) 20 mg tablet [id number] Yes .COMPLEX Historical ProviderMD Taking Active ferric gluconate (Ferrlecit) 62.5 mg/5 mL injection [id number] No Infuse 62.5 mg into a venous catheter. Historical Provider, Not Taking Active furosemide (Lasix) 40 mg tablet [id number] Yes Take 80 mg by mouth two times daily. Historical ProviderMD Taking Differently Active GaviLyte-G 236-22.74-6.74 -5.86 gram solution [id number] No TAKE 240 ML EVERY 10 MINUTES UNTIL FECAL EFFLUENT IS CLEAR Historical ProviderMD Not Taking Active heparin sodium,porcine/PF (heparin, porcine, PF,) 1,000 unit/mL solution [id number] Yes Infuse 1,000 Units into a venous catheter. Historical Provider, Taking Active hydrALAZINE (Apresoline) 50 mg tablet [id number] Yes Take 100 mg by mouth two times daily. Historical ProviderMD Taking Differently Active hydrOXYzine HCL (Atarax) 25 mg tablet [id number] Yes Take 25 mg by mouth. Historical Provider, Taking Active hyoscyamine (Anaspaz,Levsin) 0.125 mg tablet [id number] No TAKE 1 TABLET BY MOUTH EVERY 6 HOURS NEEDED FOR ABDOMINAL PAIN Historical ProviderMD Not Taking Active insulin glargine (Lantus) 100 unit/mL (3 mL) injection pen [id number] Yes Inject 20 Units under the skin in the morning. Historical Provider, Taking Active insulin lispro (HumaLOG) 100 unit/mL injection pen [id number] Yes Inject 4 times a day before meals & bedtime. [id number]; 170-189=3units; 190-209=4units; 210-229=6units; 230-249=8units; 250-269=9units; 270-289=10units; 290-300=12units (more content not included)...[facility]11-26-2024 NoteIdentifying Information Name: Yoel Werner : 1985 Assessment date: 07/14/2024 Transplant type: Kidney Transplant Evaluation - 07/14/2024 Primary language: American Anabaptism/spirituality: Shinto People present at assessment: none Do you have any baptist, ethical or personal objections to accepting blood products, surgery and/or transplant? No Citizenship Where were you born? In the [place] in [facility] Where do you currently live or are staying? [facility] Is this greater than 3-4 hours from [facility]? No. 1 H Family Background and Supportive Relationships Mother: COD: morel cancer Father: 60 Healthy Siblings: Sister: healthy Children: Biological 4 Bio 1 adoptive 1 passed Number of children, living or (UNOS question): 6 Names, age, health status, relationship, address: [place], 13, healthy, daughter, Óscar Nona, 12, healthy, daughter, Óscar Kuldeep, 10, healthy, son, Óscar Mg, 9, son, Óscar- he was a twin Adoptive son Jet- 6, son, Marital/relationship status: for 2 years Household composition: Patient Are there any current or past significant life changes or traumatic events? No, mom passing and son passing. Support / Caregiver Plans Who will be your primary caregiver? 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 mother and/or father Jake Contact #: [phone] Health status & availability: Healthy, retired, able to drive. Other important supportive relationships: If several caregivers are involved, will they be able to cooperate with each other? No concerns. How comfortable are you asking for and/or receiving help? No problem asking them. Have you been or are you currently a caregiver for someone else (i.e. children, spouse, parents)? No Are there any ongoing family disagreements or life issues that may be impacted by the transplant? No Does anyone in your household or caregiving team use tobacco, or abuse alcohol or illicit substances? No Advance Directives Do you have an advance directive? F No, Info Provided Do you have a DPOA for healthcare or finances? no A living will? no Who is the proxy? 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 No. 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 Unsure Disability Are you on any form of disability? yes What type? SSDI What is the status? active Financial Status Income per month: $1600 Income source: SS Do you have any current financial concerns? No Is current income adequate to meet monthly needs and current medications? no, I make it work. How do you manage when you do not have enough money during the month? Goes to food pantry if needed. That is not a problem. Would you be interested in fundraising information? no Insurance / Resources Payer/Plan Subscriber Name Rel Member # Group # [employer] MEDICARE ADVAN* YOEL WERNER Self [id number] [facility] [address] MEDICAID [facility]* YOEL WERNER Self [id number] [address] [facility] [facility] Are you aware of a coordination of benefits with your insurance and Medicare (if applicable)? yes Are you receiving assistance through [employer] [facility] JANAE Program: No Medication Coverage Do you have prescription coverage: Yes What are your medication costs for generic, preferred brand, and non-preferred brand medications? $free Indicate medication costs after transplant: Educated How will you pay for these medications after transplant? Insurance [place] Benefits Have you served in the ? No Understanding of Medical Situation What is your primary diagnosis? COVID and heart attack- 2019 When did you become aware of your diagnosis? 2019 Do you have any other health issues? yes DM, HTN, blind in left eye, TVD If yes, how do they impact you? 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 Dialysis center, schedule, type, and start date (if applicable): Dialysis History Start End Type Center Comments 03/01/2023 Hemo [facility] Dialysis Center Information [facility] Address: [address] [place] [address], [address] [facility] [address] Dialysis Schedule: MWF, 7AM, 3.5, 2-4K Treatment Compliance / Adherence How do you manage your medications now? Memory and Pillbox Patient fills Do you have any difficulties in getting or taking your medications? None as long ist in stock. Having issues with bloodsugars and dexcom. Do you know what you take (more content not included)...[facility]11-26-2024 [id number] Yoel Werner 1985 M Date Provider Department Center 07/14/2024 YESIKA HERNANDEZ TXDianna None No family history on file Level of Service:35762 [place] OFFICE/OUTPATIENT [facility] 60 MINUTES Reason for Visit and Comments: Kidney Eval [[id number]][facility]11-26-2024 Note Coordinator met with patient for initial transplant evaluation appointment in Transplant clinic today. Explained transplant process and consents with patient. Answered patient questions. Social work, finance and cloth piecer in to see patient. Dr. Charles in for H&P and transplant plan. Dr. Cardenas in for surgical evaluation. Coordinator provided copy of plan to patient and reviewed it with them. Patient aware further testing needed and to keep transplant team updated. Understanding verbalized by patient. Insurance Writer provided verbal order for patient labs and CT scan today. Work-up Needed-Date of Eval Letter Mailed to patient and faxed to Insurance Writer/ Dialysis Center. Record Center Coordinator provided patient TE folder with education on various transplant consents, the workup process, surgery details, postop expectations, transplant statistics, and living donor information. Answered patient questions and verified understanding. [facility]11-26-2024 NoteCLINICAL INFORMATION: Renal failure. Transplant evaluation. Diabetes. COMPARISON: None TECHNIQUE: CT of the abdomen and pelvis without intravenous contrast. FINDINGS: Limited evaluation of the solid organs in the absence of IV contrast. LOWER CHEST: Lung bases are clear. No pleural effusion identified. Trace-small pericardial effusion. Coronary calcification, at least moderate. LIVER AND BILIARY: Noncirrhotic morphology. Gallbladder is present without overt biliary dilatation. PANCREAS: Grossly unremarkable, though limited given technique. SPLEEN: Within normal limits ADRENALS: Within normal limits KIDNEYS, URETERS, AND BLADDER: No contour deforming lesion or hydronephrosis. Hilar calcifications, potentially nephrolithiasis and/or atherosclerosis. Normal bladder. GI TRACT AND PERITONEUM: No bowel obstruction. Small volume free fluid. No free air. Nondilated appendix. VASCULATURE: Nonaneurysmal aorta. Moderate infrarenal aortic calcification. Moderate calcification of the right common and internal iliac arteries. No significant calcification of the right external iliac artery. Mild calcification right common femoral artery. Moderate calcification left common and internal iliac arteries. Minimal calcification left external iliac artery. Mild calcification left common femoral artery. LYMPH NODES: Borderline enlarged inguinal lymph nodes. No definitive enlarged retroperitoneal lymph nodes, though limited by technique. REPRODUCTIVE ORGANS: Suspected prostatomegaly. MUSCULOSKELETAL: Diffusely sclerotic osseous structures age-related renal osteodystrophy. No convincing acute osseous abnormality. IMPRESSION: 1. Aortobiiliac calcification as above. 2. Small pericardial effusion and pelvic fluid. 3. Additional findings/limitations as above All CT scans at this facility use dose modulation, iterative reconstruction, and/or weight based dosing when appropriate to reduce radiation dose to as low as reasonably achievable. Electronically signed: REINA THOMAS.[facility] 06-22-2024 Evaluation note* Diagnosis Onset Date Resolution Status Admit Date End-stage renal disease (ESRD) acute June 22, 2024 12:25pm Hypertensive CKD, ESRD on dialysis a cute June 22, 2024 12:25pm Hypoglycemia acute June 12:25pm Hypothermia acute June 22, 2024 12:25pm Missed dialysis acute June 22, 2024 12:25pm Secondary hyperparathyroidism acute June 22, 2024 12:25pm Type 1 diabetes mellitus acute June 22, 2024 12:25pm Acute bacterial bronchitis acute August 28, 2024 1:27am Anemia of renal disease acute J anuary 2024 1:27am CAP (community acquired pneumonia) a cute August 28, 2024 1:27am Chronic combined systolic (congestive) and diastolic (congestive) heart failure acute Augua 2024 1:27am Cough with hemoptysis acute Aug 1:27am ESRD on hemodialysis acute Lonnie margoth 2024 1:27am Hypertension acute August 1:27am Pulmonary edema acute August 192024 1:27am Type 1 diabetes mellitus acute August 28, 2024 1:27am [facility] Work Phone: 1(275) 940-700711-04-2024 Evaluation note* Diagnosis Onset Date Resolution Status Admit Date End-stage renal disease (ESRD) acute June 22, 2024 12:25pm Hypertensive CKD, ESRD on dialysis a cutJune 22, 2024 12:25pm Hypoglycemia acute June 12:25pm Hypothermia acute June 22, 2024 12:25pm Missed dialysis acute June 22, 2024 12:25pm Secondary hyperparathyroidism acute June 22, 2024 12:25pm Type 1 diabetes mellitus acute June 22, 2024 12:25pm Acute bacterial bronchitis acute August 28, 2024 1:27am Anemia of renal disease acute J anuary 2024 1:27am CAP (community acquired pneumonia) a cute August 28, 2024 1:27am Chronic combined systolic (congestive) and diastolic (congestive) heart failure acute 2024 1:27am Cough with hemoptysis acute Aug 1:27am ESRD on hemodialysis acute Lonnie margoth 2024 1:27am Hypertension acute August 1:27am Hypertensive CKD, ESRD on dialysis a cute August 28, 2024 1:27am Pulmonary edema acute August 192024 1:27am Secondary hyperparathyroidism acute August 28, 2024 1:27am Type 1 diabetes mellitus acute August 28, 2024 1:27am Type 2 diabetes mellitus wit h diabetic chronic kidney disease acute August 28, 2024 1:27am [facility] Work Phone: 1(460) 102-759611-04-2024 Evaluation note* Diagnosis Onset Date Resolution Status Admit Date End-stage renal disease (ESRD) acute June 22, 2024 12:25pm Hypertensive CKD, ESRD on dialysis acute June 22 12:25pm Secondary hyperparathyroidism acute June 22, 2024 12:25pm Type 1 diabetes mellitus acute June 22, 2024 12:25pm Hypoglycemia deleted June 12:25pm Hypothermia deleted June 22, 2024 12:25pm Missed dialysis deleted June 22, 2024 12:25pm Acute bacterial bronchitis acute August 28, 2024 1:27am Anemia of renal disease acute J anuary 2024 1:27am CAP (community acquired pneumonia) acute August 28 1:27am Chronic combined systolic (congestive) and diastolic (congestive) heart failure acute ry 2024 1:27am Cough with hemoptysis acute Aug ua2024 1:27am ESRD on hemodialysis acute 2024 1:27am Hypertensive CKD, ESRD on dialysis acute August 28 1:27am Pulmonary edema acute August 192024 1:27am Secondary hyperparathyroidism acute August 28, 2024 1:27am Type 1 diabetes mellitus acute August 28, 2024 1:27am Type 2 diabetes mellitus wit h diabetic chronic kidney disease acute August 28, 2024 1:27am Hypertension deleted August 1:27am ASHD (arteriosclerotic heart disease) acute September 02 1:01pm End-stage renal disease (ESRD) acute September 02, 2024 1:01pm ESRD on hemodialysis acute 2024 1:01pm Insomnia acute September 02, 2024 1:01pm Nicotine addiction acute 2024 1:01pm Primary hypertension acute 2024 1:01pm Wellness examination acute 2024 1:01pm [facility] Work Phone: 1(388) 233-494711-04-2024 Evaluation note* Diagnosis Onset Date Resolution Status Admit Date Hypertensive CKD, ESRD on dialysis acute June 22 12:25pm Secondary hyperparathyroidism acute June 22, 2024 12:25pm End-stage renal disease (ESRD) delet ed June 22, 2024 12:25pm Hypoglycemia deleted June 12:25pm Hypothermia deleted June 22, 2024 12:25pm Missed dialysis deleted June 22, 2024 12:25pm Type 1 diabetes mellitus deleted June 22, 2024 12:25pm Anemia of renal disease acute J anuary 2024 1:27am ESRD on hemodialysis acute 2024 1:27am Hypertensive CKD, ESRD on dialysis acute August 28 1:27am Secondary hyperparathyroidism acute August 28, 2024 1:27am Acute bacterial bronchitis resolved August 28, 2024 1:27am Cough with hemoptysis resolved Aug 1:27am CAP (community acquired pneumonia) deleted August 28 1:27am Chronic combined systolic (congestive) and diastolic (congestive) heart failure deleted 2024 1:27am Hypertension deleted August 1:27am Pulmonary edema deleted August 192024 1:27am Type 1 diabetes mellitus deleted August 28, 2024 1:27am Type 2 diabetes mellitus wit h diabetic chronic kidney disease deleted August 28, 2024 1:27am ASHD (arteriosclerotic heart disease) acute September 02 1:01pm ESRD on hemodialysis acute 2024 1:01pm Insomnia acute September 02, 2024 1:01pm Primary hypertension acute 2024 1:01pm Wellness examination acute 2024 1:01pm CAP (community acquired pneumonia) deleted September 02 1:01pm Nicotine addiction deleted 2024 1:01pm Anemia of renal disease acute J anuary 2024 1:09am CAP (community acquired pneumonia) acute September 16 1:09am Constipation acute August 1:09am COVID-19 acute September 16, 2024 1:09am ESRD on hemodialysis acute 2024 1:09am Hypertensive CKD, ESRD on dialysis acute September 16 1:09am Secondary hyperparathyroidism acute September 16, 2024 1:09am [facility] Work Phone: [phone]) 479-448310-24-2024 History of Present illness Narrative* Brianna Gomez, DO - 06/11/2024 9:50 AM EDT Subjective Yoel Werner is a 39 y.o. male Chief Complaint Follow-up 39-year-old gentleman returns for follow-up following recent hospitalization at [facility] when he was visiting for his friend's wedding. Hospitalized with uncontrolled diabetes and chest pain. Troponins trended mildly positive and therefore underwent cardiac catheterization details of which are reviewed revealing widely patent proximal RCA, circumflex and LAD stents; with residualsmall vessel disease and diagonal branch and PDA branch that was treated conservatively. Echocardiogram with normal left ventricular function. He denies any heart failure. He is on dialysis, looking forward to kidney transplantation at [facility] in the near future. All [facility] imaging, lab studies, discharge summary, cardiology consultation and cath notes are reviewed He has a history of large anterior WV with severe three-vessel disease and eventually underwent staged three-vessel interventions involving the mid LAD, mid circumflex and proximal RCA with drug-eluting stents between October 2021 and January 2023. He has ongoing tobacco abuse and we have counseled him for 3 to 5 minutes today on importance of tobacco cessation. He has end-stage renal disease currently on dialytic therapy Will continue current therapies, follow-up in 6 months Review of Systems Respiratory: Positive for shortness of breath. All other systems reviewed and are negative. Vitals: 06/11/24 0955 BP: 148/88 BP Location: Right arm Patient Position: Sitting Pulse: 60 Weight: 72.1 kg (159 lb) Height: 1.829 m (6') Objective Physical [...] Thought content normal. Judgment: Judgment normal. Allergies Brilinta [ticagrelor] Current Medications Current Outpatient Medications: amLODIPine (Norvasc) 2.5 mg tablet, Take 1 tablet (2.5 mg) by mouth early in the morning.., Disp: ,Rfl: aspirin 81 mg chewable tablet, TAKE 1 TABLET BY MOUTH EVERY DAY, Disp: 90 tablet, Rfl: 3 atorvastatin (Lipitor) 80 mg tablet, TAKE 1 TABLET BY MOUTH EVERY NIGHT, Disp: 90 tablet, Rfl: 3 calcium acetate (Phoslo) 667 mg capsule, Take 2 capsules (1,334 mg) by mouth 3 times a day., Disp: , Rfl: carvedilol (Coreg) 25 mg tablet, Take 1 tablet (25 mg) by mouth 2 times a day., Disp: , Rfl: clopidogrel (Plavix) 75 mg tablet, Take 1 tablet (75 mg) by mouth once daily., Disp: 90 tablet, Rfl: 3 epoetin alexus (EPOGEN INJ), Inject 8,000 Units under the skin 3 times a week., Disp: , Rfl: escitalopram (Lexapro) 10 mg tablet, Take 1 tablet (10 mg) by mouth once daily., Disp: , Rfl: famotidine (Pepcid) 20 mg tablet, Take 1 tablet (20 mg) by mouth once daily at bedtime., Disp: , Rfl: furosemide (Lasix) 40 mg tablet, TAKE 1 TABLET BY MOUTH EVERY DAY (Patient taking differently: Take2 tablets (80 mg) by mouth once daily.), Disp: 90 tablet, Rfl: 3 heparin sodium,porcine/PF (heparin, porcine, PF,) 1,000 unit/mL solution, Infuse 1 mL (1,000 Units)into a venous catheter 3 times a week., Disp: , Rfl: HumaLOG KwikPen Insulin 100 unit/mL injection, Inject under the skin., Disp: , Rfl: hydrALAZINE (Apresoline) 100 mg tablet, 1 tablet (100 mg) early in the morning.., Disp: , Rfl: hydrOXYzine HCL (Atarax) 25 mg tablet, Take 1 tablet (25 mg) by mouth once daily at bedtime., Disp:, Rfl: isosorbide mononitrate ER (Imdur) 60 mg [...] 3 times a week., Disp: , Rfl: sertraline (Zoloft) 100 mg tablet, Take 1 tablet (100 mg) by mouth early in the morning.., Disp: , Rfl: Assessment/Plan 1. ASHD (arteriosclerotic heart disease) Follow Up In Cardiology 2. Congestive heart failure, unspecified HF chronicity, unspecified heart failure type 3. Essential hypertension, benign 4. History of WV (myocardial infarction) 5. Mixed hyperlipidemia 6. Status post insertion of drug eluting coronary artery stent 7. ESRD (end stage renal disease) on dialysis (Multi) 8. Type 2 diabetes mellitus with chronic kidney disease on chronic dialysis, with long-term currentuse of insulin (Multi) 9. BMI 21.0-21.9, adult 10. Current every day smoker Scribe Attestation By signing my name below, I, Antonio Gil LPN attest that this documentation has been prepared under the direction and in the presence of Nicole Gomez DO. Provider Attestation - Scribe documentation All medical record entries made by the Scribe were at my direction and personally dictated by me. Ihave reviewed the chart and agree that the record accurately reflects my personal performance of the history, physical exam, discussion and plan. documented in this [facility] Work Phone: [phone]) 991-254010-24-2024 Instructions* Patient Instructions* Alana Pace LPN - 06/11/2024 9:50 AM EDT Please bring all medicines, vitamins, and herbal supplements with you when you come to the office. Prescriptions will not be filled unless you are compliant with your follow up appointments or have a follow up appointment scheduled as per instruction of your physician. Refills should be requested at the time of your visit. documented in this [facility] Work Phone: [phone]) 453-542510-17-2024 History of Present illness Narrative* David Berg DPM - 06/04/2024 9:20 AM EDT Patient: Yoel Werner : 1985 PCP: Eusebio Olivares MD SUBJECTIVE This is a 39 y.o. male that presents today with a CC of elongated, thick nails. Pt states nails have been elongated and thick for many years and cause pain with ambulation in shoegear. Pt has tried previous treatment with minimal relief. Pt presents today for nail care and treatment. Patient is DM2 Patient has longstanding history and history of WV x2 with cardiac stents as well as multiple myeloma history. Patient also on dialysis with end-stage renal disease Allergies: No Known Allergies Past Medical History: Past Medical History: Diagnosis Date Cancer (CMS/HCC) CHF (congestive heart failure) (CMS/HCC) Diabetes ([facility]/HCC) End stage renal disease ([facility]/HCC) Heart attack ([facility]/HCC) Hypertension (CMS/HCC) MGUS (monoclonal gammopathy of unknown significance) Renal failure Medications: Current Outpatient Medications: Accu-Chek Guide test strip, USE TO TEST FOUR TIMES A DAY DIRECTED, Disp: , Rfl: Accu-Chek Softclix Lancets lancets, USE TO TEST BLOOD SUGAR TWICE DAILY, Disp: , Rfl: amLODIPine (Norvasc) 2.5 MG tablet, Take 2.5 mg by mouth in the morning., Disp: , Rfl: atorvastatin (Lipitor) 80 MG tablet, Take 80 mg by mouth at bedtime., Disp: , Rfl: Blood Glucose Monitoring Suppl (Accu-Chek Guide Me) w/Device kit, USE DIRECTED, Disp: , Rfl: calcium acetate (Phoslo) 667 MG capsule, TAKE 2 CAPSULES BY MOUTH 3 TIMES DAILY WITH EACH MEAL, Disp: , Rfl: carvedilol (Coreg) 25 MG tablet, Take 25 mg by mouth in the morning and 25 mg before bedtime., Disp: , Rfl: clopidogrel (Plavix) 75 MG tablet, Take 75 mg by mouth in the morning., Disp: , Rfl: Continuous Blood Gluc Sensor (Dexcom G6 Sensor) misc, CHANGE SENSOR EVERY 10 DAYS*E10.65*, Disp: , Rfl: Continuous Blood Gluc Transmit (Dexcom G6 transmitter) misc, CHANGE EVERY 90 DAYS DX E10.65, Disp: , Rfl: CVS Aspirin Adult Low Dose 81 MG chewable tablet, Chew 81 mg in the morning., Disp: , Rfl: diclofenac sodium (Voltaren) 1 % gel, Apply 2 g topically in the morning and 2 g in the evening and2 g before bedtime., Disp: 50 g, Rfl: 2 ergocalciferol (Vitamin D2) 1.25 MG (12259 UT) capsule, Take 1 capsule by mouth 1 (one) time per week., Disp: , Rfl: escitalopram (Lexapro) 10 MG tablet, Take 10 mg by mouth in the morning., Disp: , Rfl: famotidine (Pepcid) 20 MG tablet, Take 20 mg by mouth in the morning and 20 mg before bedtime., Disp: , Rfl: furosemide (Lasix) 40 MG tablet, Take 40 mg by mouth in the morning., Disp: , Rfl: GaviLyte-G 236 g solution, TAKE 240 ML EVERY 10 MINUTES UNTIL FECAL EFFLUENT IS CLEAR, Disp: , Rfl: hydrALAZINE (Apresoline) 50 MG tablet, Take 50 mg by mouth in the morning and 50 mg at noon and 50 mg in the evening., Disp: , Rfl: hyoscyamine (Anaspaz,Levsin) 0.125 MG tablet, TAKE 1 TABLET BY MOUTH EVERY 6 HOURS NEEDED FOR ABDOMINAL PAIN, Disp: , Rfl: insulin lispro (HumaLOG KWIKPEN) 100 UNIT/ML injection, Inject under the skin, Disp: , Rfl: isosorbide mononitrate ER (Imdur) 60 MG 24 hr tablet, Take 60 mg by mouth in the morning and 60 mg before bedtime., Disp: , Rfl: loratadine (Claritin) 10 MG tablet, Take 10 mg by mouth every other day., Disp: , Rfl: nitroglycerin (Nitrostat) 0.4 MG SL tablet, Place 0.4 mg under the tongue, Disp: , Rfl: ofloxacin (Ocuflox) 0.3 % ophthalmic solution, INSTILL 1 DROP INTO RIGHT EYE 4 TIMES A DAY DIRECTED, Disp: , Rfl: omeprazole (PriLOSEC) [address] capsule, TAKE 1 CAP BY MOUTH EVERY DAY IN THE MORNING ON EMPTY STOMACH FOLLOWED BY BREAKFAST 30 MINS AFTER, Disp: , Rfl: ondansetron ODT (Zofran-ODT) 4 MG disintegrating tablet, DISSOLVE 1 TABLET ON THE TONGUE EVERY 6 HOURS NEEDED FOR NAUSEA/ VOMITING, Disp: , Rfl: Chmtxoabqpo-Mpiscugb-Bqjkzbwcz 1-0.5-0.075 % solution, Administer 1 drop into affected eye(s) in the morning and 1 drop at noon and 1 drop in the evening and 1 drop before bedtime., Disp: 10 mL, Rfl:1 sertraline (Zoloft) 100 MG tablet, , Disp: , Rfl: Social History: Social History Socioeconomic History Marital status: Unmarried Spouse name: Not on file Number of children: Not on file Years of education: Not on file Highest education level: Not on file Occupational History Not on file Tobacco Use Smoking status: Every Day Current packs/day: 1.00 Average packs/day: 1 pack/day for 20.0 years (20.0 ttl pk-yrs) Types: Cigarettes Smokeless tobacco: Never Vaping Use Vaping status: Unknown Substance and Sexual Activity Alcohol use: Defer Drug use: Yes Types: Marijuana Sexual activity: Defer Other Topics Concern Not on file Social History Narrative Not on file Social Drivers of Health Financial Resource Strain: Low Risk (03/14/2024) Received from [facility] Overall Financial Resource Strain (CARDIA) Difficulty of Paying Living Expenses: Not hard at all Food Insecurity: No Food Insecurity (03/14/2024) Received from [facility] Hunger Vital Sign Worried About Running Out of Food in the Last Year: Never true Ran Out of Food in the Last Year: Never true Transportation Needs: No Transportation Needs (03/14/2024) Received from [facility] PRAPARE - Transportation Lack of Transportation (Medical): No Lack of Transportation (Non-Medical): No Physical Activity: Not on file Stress: Not on file Social Connections: Not on file Intimate Partner Violence: Unknown (11/26/2023) Received from [facility] Safety & Environment Fear of Current or Ex-Partner: Not on file Emotionally Abused: Not on file Physically Abused: Not on file Sexually Abused: Not on file Physically or Sexually Abused: Not on file Housing Stability: Not on file ROS: General: denies fever, chills, fatigue, malaise Cardiovascular: denies CP, palpitations, irregular rhythms. Positive history of cardiac stents in [place] and on blood thinners OBJECTIVE LE EXAM: DERM: Elongated thick yellow crumbly nails digits 1 through 10. Diminished hair growth with thin shiny atrophic skin bilaterally VASC: Positive DP and positive PT pedal pulses NEURO: 5.07 Wallace Alecia monofilament test positive to digits and forefoot bilaterally 125Hz tuning fork positive to 1st MPJ bilaterally ORTHO: Positive pain on palpation to nails 1 through 10 HAV deformity left foot that is reducible ASSESSMENT 1. Type 2 diabetes mellitus without complication, with long-term current use of insulin ([facility]) 2. Pain due to onychomycosis of toenails of both feet 3. Hav (hallux abducto valgus), left PLAN Discussed proper foot care with patient today. Debride nails in length and thickness digits 1 through 10 Patient educated today on proper diabetic foot care including monitoring feet daily for any signs of infection openings in the skin or irregularities to both feet. Patient had a diabetic neurologicalexam today to both their feet and discussed proper shoe gear. David Berg DPM documented in this encounterCo[facility] [id number] Progress note Author Angel Mejía [facility] March 10, 2024 11:20am Note Date/Time March 10, 2024 11:2 0am [facility] [address] [place] [address] Nephrology Progress Note Signed Patient: Yoel Werner MR#: [id number] : 1985 Acct:[id number] Age/Sex: 39 / M Adm Date: 4 Loc: Room: [address] [place] [address] Type: ADM IN Attending Dr: Kim Renteria MD Copies to: ~ Date of Service: 03/10/2024 Subjective Subjective Narrative: This is a 39-year male with a medical history of ESRD, DM, HTN, CAD s/p PCI, anemia of renal disease and secondary hyperparathyroidism was admitted to the emergency room for shortness of breath. Patient was recently hospitalized at [facility] for shortness of breath and he was discharged on Lasix with prednisone Augmentin. On evaluation emergency room patient was found to have hyperkalemia and hyperglycemia with blood glucose level of 1006. His ABG showed pH of 7.35 with pCO2 37.7 and pO2 46.9. His beta-hydroxybutyratewas normal. Patient was hypoxic and was placed on the high flow oxygen. His chest x-ray showed bilateral groundglass parenchymal densities. Patient was placed on the BiPAP and was started on insulin drip. He was admitted in intensive care unit. He has a ESRD due to the diabetic nephropathy and hypertensive nephrosclerosis and has been on dialysis since February 2023. He currently goes to the [place] dialysis unit 3 times a week on MWF schedule. Patient has been noncompliant with his fluid restriction. She had a dialysis onFriday and was still above his target weight after the treatment. Nephrology was consulted for ESRD management. Interim history Patient was seen and examined at bedside. He is feeling better today denies anychest pain palpitation cough nausea or diarrhea shortness of breath. His blood sugar has improved and is currently off the insulin drip. Exam Physical Exam Vital Signs: Temp Pulse Resp BP Pulse Ox O2 Del Method O2 Flow Rate 98.3 F 82 24 185/86 H 96 Room Air 2 03/10/24 08:00 03/10/24 08:00 03/10/24 08:00 03/10/24 08:00 03/10/24 08:00 03/10/24 08:00 03/10/24 00:00 FiO2 45 03/09/24 17:38 Narrative: General: Appears comfortable and not in distress Heart: S1-S2, no rub Lung: Bilateral air entry, no wheezing or crackles Abdomen: Soft, positive bowel sounds Extremities: 1+ edema, no cyanosis Head: Atraumatic, normocephalic Ear: No gross hearing Deficit or external ear redness Eyes: No pallor or redness Neck: Positive JVD or visible mass Skin: No rashes , warm to touch DROP FORGE HAND: Awake,Alert, following simple command Musculoskeletal: No swelling or limitation of movement of the large joints Objective Intake and Output I&O: Intake & Output 03/07/24 03/08/24 03/09/24 03/10/24 23:59 23:59 23:59 23:59 Intake Total 1350 / 1350 480 / 480 Output Total 4751 / 4751 350 / 350 Balance -3401 / -3401 130 / 130 Weight 77.7 kg 77.1 kg Meds and Allergies Meds: Active Medications Albuterol (Albuterol Hfa 60 Puff/8 Gram Inhaler) 2 puff INHALATION Q6HR PRN PRN Reason: bronchospasm Stop: 03/10/25 10:19 Amlodipine Besylate (Amlodipine 2.5 Mg Tablet) 2.5 mg PO DAILY [facility] Stop: 03/11/25 08:59 Aspirin (Aspirin 81 Mg Tablet.Dr) 81 mg PO DAILY [facility] Stop: 03/10/25 08:59 Last Admin: 03/10/24 08:16 Dose: 81 mg Atorvastatin Calcium (Atorvastatin 80 Mg Tablet) 80 mg PO QPM [facility] Stop: 03/10/25 20:59 Calcium Acetate (Calcium Acetate 667 Mg Capsule) 1,334 mg PO TID.WITH.MEALS [facility] Stop: 03/10/25 11:59 Carvedilol (Carvedilol 25 Mg Tablet) 25 mg PO BID.WITH.MEALS [facility] Stop: 03/09/25 16:59 Last Admin: 03/10/24 08:16 Dose: 25 mg Carvedilol (Carvedilol 25 Mg Tablet) 25 mg PO BID.WITH.MEALS [facility] Stop: 03/10/25 16:59 Clopidogrel Bisulfate (Clopidogrel Bisulfate 75 Mg Tablet) 75 mg PO DAILY [facility] Stop: 03/10/25 08:59 Last Admin: 03/10/24 08:16 Dose: 75 mg Clopidogrel Bisulfate (Clopidogrel Bisulfate 75 Mg Tablet) 75 mg PO QAM [facility] Stop: 03/11/25 08:59 Dextrose (Dextrose 50% In Water 25 Gm/50 Ml Syringe) 0 gm IV-PUSH PRN PRN PRN Reason: Hypoglycemia Stop: 03/09/25 17:58 Famotidine (Famotidine 20 Mg Tablet) 20 mg PO Q48H [facility] Stop: 03/10/25 21:59 Furosemide (Furosemide 40 Mg/4 Ml Vial) 40 mg IV-PUSH BID@0800,1600 [facility] Stop: 03/10/25 08:04 Last Admin: 03/10/24 10:08 Dose: 40 mg Glucose (Dextrose 40% Gel 15 Gm Tube) 0 gm PO PRN PRN PRN Reason: Hypoglycemia Stop: 03/09/25 17:58 Guaifenesin (Guaifenesin 600 Mg Tab.Er.12h) 1,200 mg PO BID [facility] Stop: 03/10/25 20:59 Heparin Sodium (Porcine) (Heparin 10,000 Unit/10 Ml Vial) 2,000 unit IV PRN PRN PRN Reason: Dialysis Stop: 03/09/25 09:20 Last Admin: 03/09/24 11:16 Dose: 2,000 unit Heparin Sodium (Porcine) (Heparin 5,000 Unit/Ml Vial) 5,000 unit SUBCUT Q8HR [facility] Stop: 03/09/25 13:59 Last Admin: 03/10/24 05:45 Dose: Not Given Hydralazine HCl (Hydralazine 20 Mg/Ml Vial) 10 mg IV-PUSH Q4H PRN PRN Reason: Hypertension Stop: 03/09/25 11:55 Last Admin: 03/09/24 15:24 Dose: 10 mg Hydralazine HCl (Hydralazine 50 Mg Tablet) 50 mg PO TID [facility] Stop: 03/10/25 13:59 Sodium Chloride (0.9% Sodium Chloride 1,000 Ml) 1,000 mls @ 0 mls/hr MISCELLANE.Q0M PRN PRN Reason: Dialysis Stop: 03/09/25 09:20 Last Infusion: 03/09/24 11:17 Dose: Infused Ceftriaxone Sodium (Rocephin) 1 gm in 50 mls @ 100 mls/hr IV Q24H [facility] Last Admin: 03/09/24 15:23 Dose: 100 mls/hr Insulin Aspart (Insulin Aspart 300 Units/3 Ml Insuln.Pen) 0 units SUBCUT TID.WITH.MEALS [facility]; Protocol Stop: 03/10/25 07:59 Last Admin: 03/10/24 07:27 Dose: Not Given Insulin Glargine (Insulin Glargine 300 Units/3 Ml Insuln.Pen) 15 units SUBCUT DAILY [facility] Stop: 03/10/25 08:59 Last Admin: 03/10/24 08:17 Dose: 15 units Isosorbide Mononitrate (Isosorbide Mononitrate 24hr Er 60 Mg Tab.Er.24h) 60 mg PO BID [facility] Stop: 03/10/25 20:59 Midodrine (Midodrine 5 Mg Tablet) 5 mg PO PRN PRN PRN Reason: Dialysis Stop: 03/09/25 09:21 Nitroglycerin (Nitroglycerin 0.4 Mg Tab.Subl) 0.4 mg SUBLINGUAL Q5MIN.X3 PRN PRN Reason: Chest Pain Stop: 03/10/25 09:30 Ondansetron HCl (Ondansetron 4 Mg/2 Ml Vial) 4 mg IV-PUSH Q8H PRN PRN Reason: Nausea And Vomiting Stop: 03/10/25 07:38 Last Admin: 03/10/24 08:16 Dose: 4 mg Pantoprazole Sodium (Pantoprazole 40 Mg Tablet.Dr) 40 mg PO BID [facility] Stop: 03/11/25 08:59 Paricalcitol (Paricalcitol 10 Mcg/2 Ml Vial) 3 mcg IV-PUSH MoWeFr@1000 [facility] Stop: 03/09/25 09:59 Last Admin: 03/09/24 11:17 Dose: 3 mcg Sertraline HCl (Sertraline 100 Mg Tablet) 100 mg PO HS [facility] Stop: 03/10/25 21:59 Sodium Chloride (Sodium Chloride 0.9 % 10 Ml Syringe) 0 ml IV-PUSH PRN PRN PRN Reason: Flush Stop: 03/09/25 05:31 Last Admin: 03/09/24 11:16 Dose: 10 ml Sodium Chloride (Sodium Chloride 0.9 % 10 Ml Syringe) 0 ml IV-PUSH PRN PRN PRN Reason: Flush Stop: 03/09/25 09:20 Allergies No Known Allergies Allergy (Verified 03/09/24 05:32) Results - Nephrology Labs 03/10/24 04:32 03/10/24 04:32 Labs: 03/09/24 03/10/24 20:30 04:32 BUN 37 H D Creatinine 4.66 H D Urine Color Light-yellow Urine Appearance Clear Urine pH 6.5 Ur Specific [place] 1.013 Urine Protein 300 H Urine Glucose (UA) >=1000 H Urine Ketones Negative Urine Occult Blood 1+ H Urine Nitrite Negative Ur Leukocyte Esterase Negative Urine RBC 1-2 Urine WBC 5-9 H Urine Bacteria Rare Radiology Impressions Impressions - last 24 hours: Any impression(s) listed above is documentation that was entered by the reading physician into a diagnostic report(s) for Yoel Werner. I have reviewed the report(s) and am incorporating any findings in the treatment plan of this patient where applicable. A&P - Nephrology Assessment/Plan (1) Hyperosmolar hyperglycemic state (HHS): Assessment/Problem Details: He has hyperosmolar hyperglycemia due to the dietary noncompliance, steroids and possible sepsis. He is currently on insulin drip. (2) ESRD (end stage renal disease) on dialysis: Assessment/Problem Details: He has ESRD due to the diabetic nephropathy and hypertensive nephrosclerosis. He currently goes to the [place] dialysis unit 3 times a week on MWF schedule. (3) Acute hypoxic respiratory failure: Assessment/Problem Details: He has an acute hypoxic respiratory failure due to the combination of pneumonia and fluid overload. (4) Anemia in chronic kidney disease: Assessment/Problem Details: Hemoglobin is within the goal. He receives Aranesp with hemodialysis. (5) Hypertensive CKD, ESRD on dialysis: Assessment/Problem Details: He has high blood pressure due to the hypervolemia. (6) Secondary hyperparathyroidism: Assessment/Problem Details: He has a secondary hyperparathyroidism due to the ESRD and currently receives IVZemplar. Plan * No need for dialysis today. Next dialysis will be tomorrow as per schedule. * Will give Lasix 40 mg IV twice daily as he has a residual kidney function. It can be changed to oral Lasix upon discharge * Continue DM management as per the primary hospitalist team. * Continue empiric antibiotic and adjust as needed based on culture sensitivity. * Continue outpatient dose of the IV Zemplar. * Continue home dose of the carvedilol. * Check renal function and CBC daily. * Documented By: Angel Mejía MD 03/10/24 1118 Signed By: <Electronically signed by Angel Mejía MD> 03/10/24 1120 [facility] Work Phone: [phone]) 141-200807-23-2024 Progress note Author Kim Renteria [facility] March 10, 2024 9:30am Note Date/Time March 10, 2024 9:30 am [facility] [address] [place] [address] Hospitalist Progress Note Signed Patient: Yoel Werner MR#: [id number] : 1985 Acct:[id number] Age/Sex: 39 / M Adm Date: 4 Loc: Room: [address] [place] [address] Type: ADM IN Attending Dr: Kim Renteria MD Copies to: ~ Date of Service: 03/10/2024 Subjective Subjective Narrative: On examination patient is on room air with no signs of respiratory distress. Heis feeling significant better as compared to yesterday. Hyperglycemia has improved and has been tapered off insulin drip since yesterday. Apparently patient was not taking his short acting insulin while at home as he was busy with his kids. He does not check his blood glucose regularly since he lost his Dexcom continuous glucose monitoring due to insurance issues. He does follow with Dr. Stiles regarding his diabetes. Exam Physical Exam Vital Signs: Temp Pulse Resp BP Pulse Ox O2 Del Method O2 Flow Rate 98.3 F 82 24 185/86 H 96 Room Air 2 03/10/24 08:00 03/10/24 08:00 03/10/24 08:00 03/10/24 08:00 03/10/24 08:00 03/10/24 08:00 03/10/24 00:00 FiO2 45 03/09/24 17:38 Const Orientation: alert, awake and oriented x3 Other: Appears drowsy and lethargic. Does wake up moving all 4 extremities. HEENT Head: normal to inspection, no palpable skull fracture, normocephalic and atraumatic Resp Effort & Inspection: normal respiratory effort and able to speak in complete sentences Auscultation: no rales, no rhonchi and no wheezes Cardio Rate: regular rate Rhythm: regular rhythm Heart Sounds: S1 normal and S2 normal GI Palpation: soft, not firm, no guarding and nontender Neuro General: patient alert, patient awake, patient oriented x3, moves all extremities, no focal motor deficits and CN's II-XI intact bilaterally Motor: muscle tone normal throughout and strength 5/5 throughout Extrem General: no clubbing, cyanosis or edema and no calf tenderness Objective Lab Results 03/10/24 04:32 03/10/24 04:32 Microbiology Results Microbiology 03/09/24 07:41 Blood - Right Wrist Blood Culture - Preliminary No Growth 1 Day 03/09/24 07:39 Blood - Right Hand Blood Culture - Preliminary No Growth 1 Day 03/09/24 06:37 Nasopharyngeal SARS-CoV-2, Influenza & RSV (PCR) - Final Meds Allergies and Active Meds Allergies No Known Allergies Allergy (Verified 03/09/24 05:32) Active Meds: Active Medications Generic Name Dose Route Start Last Admin Trade Name Marisabel PRN Reason Stop Dose Admin Aspirin 81 mg 03/10/24 09:00 03/10/24 08:16 Aspirin 81 Mg Tablet. PO 03/10/25 08:59 81 mg DAILY RACHELL Administration Carvedilol 25 mg 03/09/24 17:00 03/10/24 08:16 Carvedilol 25 Mg Tablet PO 03/09/25 16:59 25 mg BID.WITH.MEALS RACHELL Administration Clopidogrel Bisulfate 75 mg 03/10/24 09:00 03/10/24 08:16 Clopidogrel Bisulfate 75 Mg Tablet PO 03/10/25 08:59 75 mg DAILY RACHELL Administration Dextrose 0 gm 03/09/24 17:59 Dextrose 50% In Water 25 Gm/50 Ml Syringe IV-PUSH 03/09/25 17:58 PRN PRN Hypoglycemia Furosemide 40 mg 03/10/24 08:05 Furosemide 40 Mg/4 Ml Vial IV-PUSH 03/10/25 08:04 BID@0800,1600 RACHELL Glucose 0 gm 03/09/24 17:59 Dextrose 40% Gel 15 Gm Tube PO 03/09/25 17:58 PRN PRN Hypoglycemia Heparin Sodium (Porcine) 2,000 unit 03/09/24 09:21 03/09/24 11:16 Heparin 10,000 Unit/10 Ml Vial IV 03/09/25 09:20 2,000 unit PRN PRN Administration Dialysis Heparin Sodium (Porcine) 5,000 unit 03/09/24 14:00 03/10/24 05:45 Heparin 5,000 Unit/Ml Vial SUBCUT 03/09/25 13:59 Not Given Q8HR RACHELL Hydralazine HCl 10 mg 03/09/24 11:56 03/09/24 15:24 Hydralazine 20 Mg/Ml Vial IV-PUSH 03/09/25 11:55 10 mg Q4H PRN Administration Hypertension Sodium Chloride 1,000 mls @ 0 mls/hr 03/09/24 09:21 03/09/24 11:17 0.9% Sodium Chloride 1,000 Ml MISCELLANE 03/09/25 09:20 Infused .Q0M PRN Infusion Dialysis As Directed Ceftriaxone Sodium 1 gm in 50 mls @ 100 mls/hr 03/09/24 15:30 03/09/24 15:23 Rocephin IV 100 mls/hr Q24H RACHELL Administration Insulin Aspart 0 units 03/10/24 08:00 03/10/24 07:27 Insulin Aspart 300 Units/3 Ml Insuln.Pen SUBCUT 03/10/25 07:59 Not Given TID.WITH.MEALS [facility] Protocol Insulin Glargine 15 units 03/10/24 09:00 03/10/24 08:17 Insulin Glargine 300 Units/3 Ml Insuln.Pen SUBCUT 03/10/25 08:59 15 units DAILY RACHELL Administration Midodrine 5 mg 03/09/24 09:22 Midodrine 5 Mg Tablet PO 03/09/25 09:21 PRN PRN Dialysis Ondansetron HCl 4 mg 03/10/24 07:39 03/10/24 08:16 Ondansetron 4 Mg/2 Ml Vial IV-PUSH 03/10/25 07:38 4 mg Q8H PRN Administration Nausea And Vomiting Paricalcitol 3 mcg 03/09/24 10:00 03/09/24 11:17 Paricalcitol 10 Mcg/2 Ml Vial IV-PUSH 03/09/25 09:59 3 mcg MoWeFr@1000 RACHELL Administration Sodium Chloride 0 ml 03/09/24 05:32 03/09/24 11:16 Sodium Chloride 0.9 % 10 Ml Syringe IV-PUSH 03/09/25 05:31 10 ml PRN PRN Administration Flush Sodium Chloride 0 ml 03/09/24 09:21 Sodium Chloride 0.9 % 10 Ml Syringe IV-PUSH 03/09/25 09:20 PRN PRN Flush A&P - Hospitalist Assessment/Plan (1) Acute metabolic encephalopathy: (2) Hypertensive CKD, ESRD on dialysis: (3) Acute hypoxic respiratory failure: (4) ESRD (end stage renal disease) on dialysis: (5) Type 1 diabetes mellitus with hyperglycemia: (6) Acute on chronic diastolic heart failure: (7) Hyperkalemia: Plan His mentation is significantly improved after getting hemodialysis. He has beenweaned off supplemental oxygen currently on room air. Hypoglycemia improved as well and has been off insulin drip. Will continue basal insulin with sliding scale coverage. Patient can be transferred to medical floor. Resume home medications including Imdur, Lasix, amlodipine, aspirin and Plavix. Echocardiogram has been ordered. Will repeat chest x-ray as a follow-up after hemodialysis given his presentation as he mentioned having some cough although no signs of infection at this time. No growth on blood cultures since yesterday. I did start him on ceftriaxone given his recent pneumonia admission to continue with antibiotics. On subcutaneous heparin for DVT prophylaxis. Documented By: Kim Renteria MD 03/10/24924 Signed By: <Electronically signed by Kim Renteria MD> 03/10/2430 [facility] Work Phone: 1(259) 434-105507-22-2024 Consult note Author Angel Mejía [facility] March 09, 2024 5:14pm Note Date/Time March 09, 2024 12:5 1pm [facility] [address] [place] [address] Nephrology Consult Note Signed Patient: Yoel Werner MR#: [id number] : 1985 Acct:[id number] Age/Sex: 39 / M Adm Date: 4 Loc: Room: [address] [place] [address] Type: ADM IN Attending Dr: Kim Rneteria MD Copies to: MD Eusebio Castellano DO Mazhar Rahman, MD~ Providers Consult Date: 03/09/24 Requesting Provider: Kim Renteria MD Primary Care Provider: Eusebio Olivares DO HPI Reason for Consult: ESRD management. History of Present Illness: This is a 39-year male with a medical history of ESRD, DM, HTN, CAD s/p PCI, anemia of renal disease and secondary hyperparathyroidism was admitted to the emergency room for shortness of breath. Patient was recently hospitalized at [facility] for shortness of breath and he was discharged on Lasix with prednisone Augmentin. On evaluation emergency room patient was found to have hyperkalemia and hyperglycemia with blood glucose level of 1006. His ABG showed pH of 7.35 with pCO2 37.7 and pO2 46.9. His beta-hydroxybutyratewas normal. Patient was hypoxic and was placed on the high flow oxygen. His chest x-ray showed bilateral groundglass parenchymal densities. Patient was placed on the BiPAP and was started on insulin drip. He was admitted in intensive care unit. He has a ESRD due to the diabetic nephropathy and hypertensive nephrosclerosis and has been on dialysis since February 2023. He currently goes to the [place] dialysis unit 3 times a week on MWF schedule. Patient has been noncompliant with his fluid restriction. She had a dialysis onFriday and was still above his target weight after the treatment. I was consulted by the ER physician for urgent need of dialysis due to fluid overload. Patient was seen examined bedside during hemodialysis. He was feeling lethargic. Review of Systems Review of Systems All other systems reviewed & are negative unless noted below or in HPI Review of systems: Cardiovascular: denies any chest pain, palpitation Pulmonary: Reported to have a shortness of breath and cough but denies any hemoptysis Gastrointestinal: denies any nausea, vomiting, diarrhea Neurological :denies any headache, numbness, weakness Endocrine: denies any polyuria, polydipsia Dermatological: denies any itching or rash [facility] Medical History Cataract Acute exacerbation of chronic obstructive airways disease ESRD (end stage renal disease) on dialysis ASHD (arteriosclerotic heart disease) Secondary hyperparathyroidism Primary hypertension Peyronie's disease Erectile dysfunction due to arterial insufficiency Chronic venous insufficiency Anemia in chronic kidney disease Anasarca Acute combined systolic and diastolic heart failure Heart attack CAD (coronary artery disease) Diabetes mellitus Depression AV fistula Smoker Asthmatic bronchitis , chronic PTSD (post-traumatic stress disorder) Anxiety MGUS (monoclonal gammopathy of unknown significance) History of blood transfusion Diabetic retinopathy History of myocardial infarction Hypercholesterolemia COVID Surgical History H/O heart artery stent History of bone marrow biopsy H/O eye surgery Hx of knee surgery Hx of vasectomy Family History Mother Liver disease Diabetes Pancreatic cancer Father Diverticulitis Hypertension IBS (irritable bowel syndrome) Stroke Heart disease History of stroke Family history of mental disorder Social History Smoking Status: Current every day smoker Tobacco Type: cigarettes Substance Use Type: None Substance Abuse Comment: Has not used in a few months ; Medical card that in Sep 2023 Social History Comments: lives with dad Meds Medications & Allergies Allergies No Known Allergies Allergy (Verified 03/09/24 05:32) Home Medications famotidine 20 mg tablet 40 mg PO QHS 11/13/21 [History Confirmed 03/01/24] atorvastatin 80 mg tablet 80 mg PO QPM 30 days #30 tabs 11/17/21 [Rx Confirmed 03/01/24] nitroglycerin 0.4 mg sublingual tablet 0.4 mg sublingual Q5MIN.X3 PRN Chest Pain30 days #25 tabs 11/17/21 [Rx Confirmed 03/01/24] omeprazole 40 mg capsule,delayed release 40 mg PO QAM 05/09/22 [History Confirmed 03/01/24] aspirin 81 mg chewable tablet (Children's Aspirin) 81 mg PO QAM 09/10/22 [History Confirmed 03/01/24] clopidogrel 75 mg tablet (Plavix) 75 mg PO QAM 09/10/22 [History Confirmed 03/01/24] isosorbide mononitrate 60 mg tablet,extended release 24 hr 60 mg PO BID 11/12/22[History Confirmed 03/01/24] carvedilol 25 mg tablet (Coreg) 25 mg PO BID #60 tabs 01/09/23 [Rx Confirmed 03/01/24] amlodipine 2.5 mg tablet 2.5 mg PO DAILY #30 tabs 08/18/23 [Rx Confirmed 03/01/24] calcium acetate 667 mg tablet 1,334 mg PO TID 11/13/23 [History Confirmed 03/01/24] insulin lispro 100 unit/mL subcutaneous pen (Humalog KwikPen (U-100) Insulin) 1 sliding scale dose subcut USEASDIRECTD 11/13/23 [History Confirmed 03/01/24] insulin glargine 100 unit/mL subcutaneous solution (Lantus U-100 Insulin) 15 unit subcut DAILY 11/26/23 [History Confirmed 03/01/24] hydralazine 50 mg tablet 50 mg PO TID 30 days #90 tabs 02/04/24 [Rx Confirmed 03/01/24] loratadine 10 mg tablet See Rx Instructions .Route .COMPLEX #45 tabs 02/13/24 [Rx Confirmed 03/01/24] sertraline 100 mg tablet 100 mg PO HS 03/01/24 [History Confirmed 03/01/24] albuterol sulfate 90 mcg/actuation aerosol inhaler 2 puff inhalation Q6HR PRN bronchospasm 30 days #8.5 grams 03/02/24 [Rx] amoxicillin 875 mg-potassium clavulanate 125 mg tablet 1 tab PO BID #14 tabs 03/02/24 [Rx] benzonatate 100 mg capsule 100 mg PO BID-TID PRN cough #15 caps 03/02/24 [Rx] 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 meter,continuous (FreeStyle Ramy 3 Tornillo) #1 ea 03/02/24 [Rx] 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 sensor (FreeStyle Ramy 3 Sensor device) #1 ea 03/02/24 [Rx] furosemide 40 mg tablet 40 mg PO BID@0800,1600 #60 tabs 03/02/24 [Rx] guaifenesin 600 mg tablet, extended release 12 hr (Mucinex) 1,200 mg (2 x 600 mg) PO BID 7 days #28 tabs 03/02/24 [Rx] prednisone 20 mg tablet 20 mg PO DAILY 5 days #5 tabs 03/02/24 [Rx] Active Medications: Active Medications Aspirin (Aspirin 81 Mg Tablet.Dr) 81 mg PO DAILY RACHELL Stop: 03/10/25 08:59 Carvedilol (Carvedilol 25 Mg Tablet) 25 mg PO BID.WITH.MEALS RACHELL Stop: 03/09/25 16:59 Clopidogrel Bisulfate (Clopidogrel Bisulfate 75 Mg Tablet) 75 mg PO DAILY RACHELL Stop: 03/10/25 08:59 Heparin Sodium (Porcine) (Heparin 10,000 Unit/10 Ml Vial) 2,000 unit IV PRN PRN PRN Reason: Dialysis Stop: 03/09/25 09:20 Last Admin: 03/09/24 11:16 Dose: 2,000 unit Heparin Sodium (Porcine) (Heparin 5,000 Unit/Ml Vial) 5,000 unit SUBCUT Q8HR RACHELL Stop: 03/09/25 13:59 Hydralazine HCl (Hydralazine 20 Mg/Ml Vial) 10 mg IV-PUSH Q4H PRN PRN Reason: Hypertension Stop: 03/09/25 11:55 Insulin Human Regular (Myxredlin) 100 unit in 100 mls @ 7.1 mls/hr IV .Q14H6M RACHELL; Protocol Stop: 03/09/25 08:29 Last Admin: 03/09/24 08:50 Dose: 0.1 units/kg/hr, 7.1 mls/hr Sodium Chloride (0.9% Sodium Chloride 1,000 Ml) 1,000 mls @ 0 mls/hr MISCELLANE .Q0M PRN PRN Reason: Dialysis Stop: 03/09/25 09:20 Last Infusion: 03/09/24 11:17 Dose: Infused Ceftriaxone Sodium (Rocephin) 1 gm in 50 mls @ 100 mls/hr IV Q24H [facility] Midodrine (Midodrine 5 Mg Tablet) 5 mg PO PRN PRN PRN Reason: Dialysis Stop: 03/09/25 09:21 Paricalcitol (Paricalcitol 10 Mcg/2 Ml Vial) 3 mcg IV-PUSH MoWeFr@1000 RACHELL Stop: 03/09/25 09:59 Last Admin: 03/09/24 11:17 Dose: 3 mcg Sodium Chloride (Sodium Chloride 0.9 % 10 Ml Syringe) 0 ml IV-PUSH PRN PRN PRN Reason: Flush Stop: 03/09/25 05:31 Last Admin: 03/09/24 11:16 Dose: 10 ml Sodium Chloride (Sodium Chloride 0.9 % 10 Ml Syringe) 0 ml IV-PUSH PRN PRN PRN Reason: Flush Stop: 03/09/25 09:20 Exam Physical Exam Vital Signs: Temp Pulse Resp BP Pulse Ox O2 Del Method O2 Flow Rate 97.9 F 78 24 179/84 H 97 High Flow 35 03/09/24 10:55 03/09/24 12:30 03/09/24 10:55 03/09/24 12:30 03/09/24 10:55 03/09/24 10:50 03/09/24 10:55 FiO2 60 03/09/24 10:55 Narrative: General: Appears comfortable and not in distress Heart: S1-S2, no rub Lung: Bilateral air entry, no wheezing or crackles Abdomen: Soft, positive bowel sounds Extremities: 1+ edema, no cyanosis Head: Atraumatic, normocephalic Ear: No gross hearing Deficit or external ear redness Eyes: No pallor or redness Neck: Positive JVD or visible mass Skin: No rashes , warm to touch DROP FORGE HAND: Awake,Alert, following simple command Musculoskeletal: No swelling or limitation of movement of the large joints Results - Nephrology Labs 03/09/24 05:55 03/09/24 10:06 Labs: 03/09/24 05:55 BUN 68 H Creatinine 6.87 H Albumin 4.0 Radiology Impressions Impressions - last 24 hours: Impressions Chest X-Ray 03/09/24 05:51 IMPRESSION: Similar bilateral groundglass parenchymal densities. Consider infiltrate. Component of failure may be present. Impression dictated by: Alec Flynn M.D.03/09/2024 7:30 AM Dictation Location: [place] [address] Any impression(s) listed above is documentation that was entered by the reading physician into a diagnostic report(s) for Yoel Werner. I have reviewed the report(s) and am incorporating any findings in the treatment plan of this patient where applicable. A&P - Nephrology Assessment/Plan (1) Hyperosmolar hyperglycemic state (HHS): Assessment/Problem Details: He has hyperosmolar hyperglycemia due to the dietary noncompliance, steroids and possible sepsis. He is currently on insulin drip. (2) ESRD (end stage renal disease) on dialysis: Assessment/Problem Details: He has ESRD due to the diabetic nephropathy and hypertensive nephrosclerosis. He currently goes to the [place] dialysis unit 3 times a week on MWF schedule. (3) Acute hypoxic respiratory failure: Assessment/Problem Details: He has an acute hypoxic respiratory failure due to the combination of pneumonia and fluid overload. (4) Anemia in chronic kidney disease: Assessment/Problem Details: Hemoglobin is within the goal. He receives Aranesp with hemodialysis. (5) Hypertensive CKD, ESRD on dialysis: Assessment/Problem Details: He has high blood pressure due to the hypervolemia. (6) Secondary hyperparathyroidism: Assessment/Problem Details: He has a secondary hyperparathyroidism due to the ESRD and currently receives IV Zemplar. Plan * Hemodialysis today as ordered. * Continue insulin drip for hyperglycemia management. * Continue empiric antibiotic and adjust as needed based on culture sensitivity. * Continue outpatient dose of the IV Zemplar. * Continue home dose of the carvedilol. * Check renal function and CBC daily. * Thanks for the consult. Will continue follow with you. Please feel free to call us with any question. Documented By: Angel Mejía MD 03/09/24 1240 Signed By: <Electronically signed by Angel Mejía MD> 03/09/24 4908 [facility] Work Phone: 1(363) 515-149707-22-2024 History and physical note Author Kim Renteria [facility] March 09, 2024 11:56am Note Date/Time March 09, 2024 10:5 4am [facility] [address] [place] [address] Hospitalist H&P Signed Patient: Yoel Werner MR#: [id number] : 1985 Acct:[id number] Age/Sex: 39 / M Adm Date: 4 Loc: Room: [address] [place] [address] Type: ADM IN Attending Dr: Kim Renteria MD Copies to: DO Kim Leblanc MD~ HPI DATE OF EXAMINATION: 03/09/24 CHIEF COMPLAINT: Shortness of breath. HISTORY OF PRESENT ILLNESS: Patient is a 39-year-old male with extensive medical history including end- stagerenal disease on hemodialysis due to diabetes, coronary disease status post multiple PCI with last PCI to LAD in 02/08, hypertension and insulin-dependent diabetes. Patient was recently in the hospital when admitted on 03/01 for shortness of breath. He was diagnosed with pneumonia hemodialysis. Apparently the next day patient insisted to be discharged home. He was discharged on increased dose of Lasix to 40 twice daily with prednisone and Augmentin. Patient again presented to ER with complaint of shortness of breath and his labsshowed potassium 5.7, HCO3 20.7 with a random glucose of 1006. BNP 4104. ABG showed pH of 7.35 with pCO2 37.7 and pO2 of 46.9. Found to be hypoxic and placed on high flow oxygen. Beta-hydroxybutyrate level 0.27. Chest x-ray showing similar bilateral groundglass parenchymal densities and blood cultures have been drawn. On examination patient appears drowsy lethargic. It appears he received 2 mg IV Ativan in the emergency room. I am not able to obtain any further history due to his mentation. Currently no family present at bedside. Patient has been started on insulin drip and will be admitted to ICU for furthermanagement. Review of Systems Review of Systems Unobtainable due to mental status [facility] Medical History Cataract Acute exacerbation of chronic obstructive airways disease ESRD (end stage renal disease) on dialysis ASHD (arteriosclerotic heart disease) Secondary hyperparathyroidism Primary hypertension Peyronie's disease Erectile dysfunction due to arterial insufficiency Chronic venous insufficiency Anemia in chronic kidney disease Anasarca Acute combined systolic and diastolic heart failure Heart attack CAD (coronary artery disease) Diabetes mellitus Depression AV fistula Smoker Asthmatic bronchitis , chronic PTSD (post-traumatic stress disorder) Anxiety MGUS (monoclonal gammopathy of unknown significance) History of blood transfusion Diabetic retinopathy History of myocardial infarction Hypercholesterolemia COVID Surgical History H/O heart artery stent History of bone marrow biopsy H/O eye surgery Hx of knee surgery Hx of vasectomy Family History Mother Liver disease Diabetes Pancreatic cancer Father Diverticulitis Hypertension IBS (irritable bowel syndrome) Stroke Heart disease History of stroke Family history of mental disorder Social History Smoking Status: Current every day smoker Tobacco Type: cigarettes Substance Use Type: None Substance Abuse Comment: Has not used in a few months ; Medical card that in Sep 2023 Social History Comments: lives with dad Meds Medications and Allergies Allergies No Known Allergies Allergy (Verified 03/09/24 05:32) Home Medications famotidine 20 mg tablet 40 mg PO QHS 11/13/21 [History Confirmed 03/01/24] atorvastatin 80 mg tablet 80 mg PO QPM 30 days #30 tabs 11/17/21 [Rx Confirmed 03/01/24] nitroglycerin 0.4 mg sublingual tablet 0.4 mg sublingual Q5MIN.X3 PRN Chest Pain30 days #25 tabs 11/17/21 [Rx Confirmed 03/01/24] omeprazole 40 mg capsule,delayed release 40 mg PO QAM 05/09/22 [History Confirmed 03/01/24] aspirin 81 mg chewable tablet (Children's Aspirin) 81 mg PO QAM 09/10/22 [History Confirmed 03/01/24] clopidogrel 75 mg tablet (Plavix) 75 mg PO QAM 09/10/22 [History Confirmed 03/01/24] isosorbide mononitrate 60 mg tablet,extended release 24 hr 60 mg PO BID 11/12/22[History Confirmed 03/01/24] carvedilol 25 mg tablet (Coreg) 25 mg PO BID #60 tabs 01/09/23 [Rx Confirmed 03/01/24] amlodipine 2.5 mg tablet 2.5 mg PO DAILY #30 tabs 08/18/23 [Rx Confirmed 03/01/24] calcium acetate 667 mg tablet 1,334 mg PO TID 11/13/23 [History Confirmed 03/01/24] insulin lispro 100 unit/mL subcutaneous pen (Humalog KwikPen (U-100) Insulin) 1 sliding scale dose subcut USEASDIRECTD 11/13/23 [History Confirmed 03/01/24] insulin glargine 100 unit/mL subcutaneous solution (Lantus U-100 Insulin) 15 unit subcut DAILY 11/26/23 [History Confirmed 03/01/24] hydralazine 50 mg tablet 50 mg PO TID 30 days #90 tabs 02/04/24 [Rx Confirmed 03/01/24] loratadine 10 mg tablet See Rx Instructions .Route .COMPLEX #45 tabs 02/13/24 [Rx Confirmed 03/01/24] sertraline 100 mg tablet 100 mg PO HS 03/01/24 [History Confirmed 03/01/24] albuterol sulfate 90 mcg/actuation aerosol inhaler 2 puff inhalation Q6HR PRN bronchospasm 30 days #8.5 grams 03/02/24 [Rx] amoxicillin 875 mg-potassium clavulanate 125 mg tablet 1 tab PO BID #14 tabs 03/02/24 [Rx] benzonatate 100 mg capsule 100 mg PO BID-TID PRN cough #15 caps 03/02/24 [Rx] 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 meter,continuous (FreeStyle Ramy 3 Tornillo) #1 ea 03/02/24 [Rx] 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 sensor (FreeStyle Ramy 3 Sensor device) #1 ea 03/02/24 [Rx] furosemide 40 mg tablet 40 mg PO BID@0800,1600 #60 tabs 03/02/24 [Rx] guaifenesin 600 mg tablet, extended release 12 hr (Mucinex) 1,200 mg (2 x 600 mg) PO BID 7 days #28 tabs 03/02/24 [Rx] prednisone 20 mg tablet 20 mg PO DAILY 5 days #5 tabs 03/02/24 [Rx] Exam Physical Exam Vital Signs: Temp Pulse Resp BP Pulse Ox O2 Del Method O2 Flow Rate 97.1 F L 67 24 182/87 H 96 High Flow 35 03/09/24 07:22 03/09/24 10:04 03/09/24 10:04 03/09/24 10:02 03/09/24 10:39 03/09/24 10:02 03/09/24 10:04 FiO2 60 03/09/24 10:39 Const Other: Appears drowsy and lethargic. Does wake up moving all 4 extremities. HEENT Head: normal to inspection, no palpable skull fracture, normocephalic and atraumatic Eyes Pupils: PERRL EOM: EOM intact bilaterally and No nystagmus Neck Neck: normal visual inspection and full ROM Resp Effort & Inspection: normal respiratory effort Auscultation: no rales, no rhonchi and no wheezes Cardio Rate: regular rate Rhythm: regular rhythm Heart Sounds: S1 normal and S2 normal GI Palpation: soft, not firm, no guarding and nontender Neuro Other: Drowsy lethargic but moving all 4 extremities. He does wake up. Extrem General: no clubbing, cyanosis or edema and no calf tenderness Results - Hospitalist H&P Lab Results Labs: Laboratory Last Values Corrected WBC 12.4 X10E3/uL (4.1-10.5) H 03/09/24 05:55 Uncorrected WBC Count 12.4 x10E3/uL (4.1-10.5) H 03/09/24 05:55 RBC 3.58 X10E6/uL (3.90-5.60) L 03/09/24 05:55 Hgb 10.9 g/dL (13.0-17.0) L 03/09/24 05:55 Hct 33.6 % (38.8-50.0) L 03/09/24 05:55 MCV 93.9 fl (83.5-101) 03/09/24 05:55 MCH 30.6 pg (27.5-35.2) 03/09/24 05:55 MCHC 32.6 g/dL (32.5-35.6) 03/09/24 05:55 RDW 15.4 % (12.0-14.8) H 03/09/24 05:55 Plt Count 184 x10E3/uL (150-450) 03/09/24 05:55 MPV 9.2 fl (6.6-10.1) 03/09/24 05:55 Neut % (Auto) 90.8 % (.) 03/09/24 05:55 Lymph % (Auto) 3.8 % (.) 03/09/24 05:55 Pershing % (Auto) 4.4 % (.) 03/09/24 05:55 Eos % (Auto) 0.2 % (.) 03/09/24 05:55 Baso % (Auto) 0.8 % (.) 03/09/24 05:55 Nucleat RBC Rel Count 0.0 /100 WBC (0-0.5) 03/09/24 05:55 Neut # (Auto) 11.2 x10E3/uL (1.8-7.7) H 03/09/24 05:55 Lymph # (Auto) 0.5 x10E3/uL (1.00-4.8) L 03/09/24 05:55 Pershing # (Auto) 0.5 x10E3/uL (0.0-0.8) 03/09/24 05:55 Eos # (Auto) 0.0 x10E3/uL (0.0-0.45) 03/09/24 05:55 Baso # (Auto) 0.1 x10E3/uL (0.0-0.2) 03/09/24 05:55 Monocyte Dist Width 15.01 % (0.00-20.00) 03/09/24 05:55 Sample Site Right radial 03/09/24 08:00 ABG pH 7.35 (7.35-7.45) 03/09/24 08:00 ABG pCO2 37.7 mmHg (35.0-45.0) 03/09/24 08:00 ABG pO2 46.9 mmHg (80.0-100.0) L* 03/09/24 08:00 ABG HCO3 20.3 mmol/L (23.0-29.0) L 03/09/24 08:00 ABG Total CO2 21.5 mmol/L (23.0-27.0) L 03/09/24 08:00 ABG O2 Saturation 80.2 % (95.0-100.0) L 03/09/24 08:00 ABG O2 Content 5.8 mmol/L (6.6-9.7) L 03/09/24 08:00 ABG Base Excess -4.7 mmol/L (-3.0-3.0) L 03/09/24 08:00 FiO2 21 % 03/09/24 08:00 Critical Value 03/09/24 08:00 PHA Creatinine Clear 14.50 03/09/24 05:55 Sodium 116 mmol/L (136-145) L* 03/09/24 05:55 Potassium 5.7 mmol/L (3.5-5.1) H 03/09/24 05:55 Chloride 81 mmol/L (98-107) L 03/09/24 05:55 Carbon Dioxide 20.2 mmol/L (21.0-31.0) L 03/09/24 05:55 Anion Gap 20.5 mEq/L (6.0-15.0) H 03/09/24 05:55 BUN 68 mg/dL (7-25) H 03/09/24 05:55 Creatinine 6.87 mg/dL (0.70-1.30) H 03/09/24 05:55 Est GFR (CKD-EPI) 9.721 mL/Min 03/09/24 05:55 Glucose 1006 mg/dL (70-100) H* 03/09/24 05:55 POC Glucose Comment 03/09/24 09:58 Lactic Acid 0.8 mmol/L (0.5-2.2) 03/09/24 07:39 Calcium 8.9 mg/dL (8.6-10.3) 03/09/24 05:55 Total Bilirubin 0.7 mg/dl (0.3-1.0) 03/09/24 05:55 AST 11 U/L (13-39) L 03/09/24 05:55 ALT 8 U/L (7-52) 03/09/24 05:55 Alkaline Phosphatase 73 U/L (34-104) 03/09/24 05:55 B-Natriuretic Peptide 4104.0 pg/mL (5-100) H 03/09/24 05:55 Total Protein 7.2 gm/dL (6.4-8.9) 03/09/24 05:55 Albumin 4.0 gm/dL (3.5-5.7) 03/09/24 05:55 Globulin 3.2 gm/dL 03/09/24 05:55 Albumin/Globulin Ratio 1.3 03/09/24 05:55 B-Hydroxybutyrate Cancelled 03/09/24 07:41 SARS-CoV-2 Rap RNA(RT-PCR) Negative (Negative) 03/09/24 06:37 Microbiology Results Micro: Microbiology - Results from entire visit 03/09/24 06:37 Nasopharyngeal SARS-CoV-2, Influenza & RSV (PCR) - Final ABG Interpretation ABG results: 03/09/24 08:00 ABG pH 7.35 ABG pCO2 37.7 ABG pO2 46.9 L* ABG HCO3 20.3 L ABG Total CO2 21.5 L ABG O2 Saturation 80.2 L ABG O2 Content 5.8 L ABG Base Excess -4.7 L Assessment & Plan Assessment/Plan (1) Acute metabolic encephalopathy: (2) Hypertensive CKD, ESRD on dialysis: (3) Acute hypoxic respiratory failure: (4) ESRD (end stage renal disease) on dialysis: (5) Type 1 diabetes mellitus with hyperglycemia: (6) Acute on chronic diastolic heart failure: (7) Hyperkalemia: Plan Patient with history of end-stage disease on hemodialysis every Saturday, Saturday and Saturday, coronary disease status post multiple PCI and insulin-dependent diabetes. He was recently discharge from the hospital when presented with shortness of breath. He again presented to ER with shortness of breath and in the ER found to have significant hyperglycemia. Noted to be lethargic and suspecting metabolic encephalopathy due to severe hyperglycemia. No signs of DKA. He did receive Ativan likely contributing to his mentation. No focal motor deficit noted on examination although was limited. Consult nephrology for hemodialysis given his significant hypoxia due to fluid overload. Will repeat echocardiogram to assess his LV function since his last echo was done in 2021. Continue insulin drip until hyperglycemia improves. DVT prophylaxis. IP vs OBS Justification Based on differential dx, clinical care plan, and risk of adverse events, if untreated, in my clinical judgement this patient requires an acute care setting as: INPATIENT because of an expectation of an over 2 midnight stay. Estimated length of stay (# of days): 3 Documented By: Kim Renteria MD 03/09/24 1047 Signed By: <Electronically signed by Kim Renteria MD> 03/09/24 115[address] [facility] Work Phone: [phone] Progress note Author Chung Maria [facility] March 01, 2024 2:36pm Note Date/Time March 01, 2024 9:35 am [facility] [address] [place] [address] Hospitalist Progress Note Signed Patient: Yoel Werner MR#: [id number] : 1985 Acct:[id number] Age/Sex: 38 / M Adm Date: 4 Loc: Room: [address] [place] [address] Type: ADM IN Attending Dr: Chung Maria MD Copies to: ~ Date of Service: 03/01/2024 Subjective Subjective Narrative: Seen and examined at bedside, sleeping, easily arousable reporting that he is just tired. Currently on room air with oxygen saturation above 90%, denies any cough. However he reports for the past few months he has had no buildup of phlegm or cough when he is laying flat in bed. He reports severe vomiting yesterday, currently denies any nausea/vomiting, no fever or chills. Exam Physical Exam Vital Signs: Temp Pulse Resp BP Pulse Ox O2 Del Method 98.5 F 86 20 164/77 H 93 L Room Air 03/01/24 02:40 03/01/24 09:12 03/01/24 09:12 03/01/24 06:56 03/01/24 06:56 03/01/24 06:56 Narrative: CONST-thin, awake, alert, cooperative CARDIAC-normal rate, regular rhythm, normal S1 & S2. PULM-diminished without wheeze or rhonchi, RA, no accessory muscle use or cough noted ABD - Soft. Bowel sounds are normal. No distention No tenderness EXTREM-no edema BLE calves nontender SKIN- W/D good turgor Objective Lab Results 03/01/24 02:55 03/01/24 11:19 Microbiology Results Microbiology 03/01/24 03:32 Nasopharyngeal Respiratory Panel (PCR) - Final 03/01/24 03:32 Nasopharyngeal SARS-CoV-2, Influenza & RSV (PCR) - Final Meds Allergies and Active Meds Allergies No Known Allergies Allergy (Verified 03/01/24 02:53) Active Meds: Active Medications Generic Name Dose Route Start Last Admin Trade Name Marisabel PRN Reason Stop Dose Admin Acetaminophen 650 mg 03/01/24 05:13 Acetaminophen 325 Mg Tablet PO 03/01/25 05:12 Q6HR PRN Pain Scale 1 - 3 or fever Albuterol/Ipratropium 3 ml 03/01/24 08:00 03/01/24 09:05 Ipratropium/Albuterol 0.5-3 Mg 3 Ml Ampul.Neb INHALATION 03/01/25 07:59 3 ml QID.RESP RACHELL Administration Amlodipine Besylate 2.5 mg 03/01/24 09:00 Amlodipine 2.5 Mg Tablet PO 03/01/25 08:59 DAILY [facility] Aspirin 81 mg 03/01/24 09:00 Aspirin 81 Mg Tab.Chew PO 03/01/25 08:59 QAM [facility] Atorvastatin Calcium 80 mg 03/01/24 21:00 Atorvastatin 80 Mg Tablet PO 03/01/25 20:59 QPM [facility] Carvedilol 25 mg 03/01/24 09:00 Carvedilol 25 Mg Tablet PO 03/01/25 08:59 BID [facility] Clopidogrel Bisulfate 75 mg 03/01/24 09:00 Clopidogrel Bisulfate 75 Mg Tablet PO 03/01/25 08:59 QAM [facility] Dextrose 0 gm 03/01/24 06:41 Dextrose 50% In Water 25 Gm/50 Ml Syringe IV-PUSH 03/01/25 06:40 PRN PRN Hypoglycemia Enoxaparin Sodium 40 mg 03/01/24 10:00 Enoxaparin 40 Mg/0.4 Ml Syringe SUBCUT 03/01/25 09:59 DAILY@10 [facility] Famotidine 40 mg 03/01/24 22:00 Famotidine 20 Mg Tablet PO 03/01/25 21:59 QHS [facility] Furosemide 40 mg 03/01/24 08:00 Furosemide 40 Mg Tablet PO 03/01/25 07:59 DAILY@0800 [facility] Glucose 0 gm 03/01/24 06:41 Dextrose 40% Gel 15 Gm Tube PO 03/01/25 06:40 PRN PRN Hypoglycemia Guaifenesin 1,200 mg 03/01/24 09:00 Guaifenesin 600 Mg Tab.Er.12h PO 03/01/25 08:59 BID [facility] Isosorbide Mononitrate 60 mg 03/01/24 22:00 Isosorbide Mononitrate 24hr Er 60 Mg Tab.Er.24h PO 03/01/25 21:59 QHS [facility] Melatonin 5 mg 03/01/24 05:13 Melatonin 5 Mg Tablet PO 03/01/25 05:12 QHS PRN Insomnia Methylprednisolone Sodium Succinate 40 mg 03/01/24 09:00 Methylprednisolone Sod Succ/Pf 40 Mg/Ml (1ml) Vial IV-PUSH 03/01/25 08:59 Q12HR RACHE[facility] Morphine Sulfate 2 mg 03/01/24 05:13 Morphine Sulfate 2 Mg/Ml Vial IV-PUSH Q4H PRN Pain Scale 8 - 10 Nitroglycerin 0.4 mg 03/01/24 06:38 Nitroglycerin 0.4 Mg Tab.Subl SUBLINGUAL 03/01/25 06:37 Q5MIN.X3 PRN Chest Pain Non-Formulary Medication 1,334 mg 03/01/24 09:00 Calcium Acetate PO 03/01/25 08:59 TID [facility] Non-Formulary Medication 15 unit 03/01/24 09:00 Insulin Glargine [Lantus U-100 Insulin] SUBCUT 03/01/25 08:59 DAILY [facility] Non-Formulary Medication 1 sliding scale dose 03/01/24 06:45 Insulin Lispro [Humalog Kwikpen Insulin] SUBCUT 03/01/25 06:44 USEASDIRECTD [facility] Ondansetron HCl 4 mg 03/01/24 05:13 Ondansetron 4 Mg/2 Ml Vial IV-PUSH 03/01/25 05:12 Q8H PRN Nausea And Vomiting Pantoprazole Sodium 40 mg 03/01/24 07:30 Pantoprazole 40 Mg Tablet. PO 03/01/25 07:29 BID.AC.BKFAST.SUPPER [facility] Sertraline HCl 100 mg 03/01/24 09:00 Sertraline 100 Mg Tablet PO 07/14/25 08:59 DAILY [facility] Sodium Chloride 0 ml 03/01/24 02:53 03/01/24 04:09 Sodium Chloride 0.9 % 10 Ml Syringe IV-PUSH 03/01/25 02:52 10 ml PRN PRN Administration Flush A&P - Hospitalist Assessment/Plan (1) Acute hypoxic respiratory failure: Plan: Acute respiratory failure with hypoxia secondary to possible pneumonia Currently on room air with oxygen saturations in the 90s, reports that for the past 3 months he gets a lot of phlegm and then coughs when laying flat no fever,chills, no leukocytosis ? Will start Unasyn and will obtain sputum culture, blood cultures pending results ? Continue with supplemental oxygen to maintain SpO2 greater 90% as needed ? Continue with DuoNebs 4 times daily for acute on chronic bronchitis, will discontinue Solu-Medrol ?Continue antitussives as as needed ? Respiratory PCR ordered and negative ?CXR in ED pending official reading (2) ESRD (end stage renal disease) on dialysis: Plan: ? Saturday schedule, last session done on Saturday ?Nephrology consulted (3) Type 1 diabetes mellitus with hyperglycemia: Plan: Blood sugars uncontrolled, was 400 mg/DL on admission, ? Home Lantus 15 units started, continue checks ACHS ? Continue to monitor (4) AV fistula: Plan: Positive thrill and bruit, no signs of infection Plan ? DVT prophylaxis addressed ? Renal diet on dialysis ? Full code Documented By: Vibha Nicolas APRN 03/01/24 0931 Signed By: <Electronically signed by JOSH Nicolas> 03/01/24 1239 <Electronically signed by Chung Maria MD> 03/01/24 [address] [facility] Work Phone: [phone] Consult note Author Bryce Coy [facility] March 01, 2024 1:15pm Note Date/Time March 01, 2024 1:15 pm [facility] [address] [place] [address] Nephrology Consult Note Signed Patient: Yoel Werner MR#: [id number] : 1985 Acct:[id number] Age/Sex: 38 / M Adm Date: 4 Loc: 4N Room: [address] [place] [address] Type: ADM IN Attending Dr: Chung Maria MD Copies to: DO Bryce Leblanc MD Mohamad Akil, MD~ Providers Consult Date: 03/01/24 Requesting Provider: Chung Maria MD Primary Care Provider: Eusebio Olivares DO [facility] Reason for Consult: Management of ESRD and dialysis during hospital stay History of Present Illness: Mr. Werner is a 58-year-old white male with history of ESRD related to DM2 ondialysis on MWF schedule at [place] dialysis unit. He presented to the hospital with shortness of breath and cough that has been getting worse recently. He reported coughing for the last 3 months that usually clear sputum. No hemoptysis or green sputum. He denies any fever or chills. He was seen at [place] [facility] on 02/28 and was diagnosed with bronchitis and was treated with DuoNeb and was discharged. After initial improvement, patient started to be nauseated and he had numerous episodes of vomiting so he decided to come to the ER. On arrival, patient was hypoxemic with saturation 89% in room air. He did refuse oxygen supplement. Patient was admitted and was started on Zofran, DuoNeb and Solu-Medrol for asthma/COPD exacerbation. He is a chronic smoker. Respiratory panel was negative on admission. Nephrology was consulted for management of dialysis and ESRD. Patient is being seen and examined in his room. He is sitting at the edge of the bed having his breakfast. He continues to have cough episodes. No fever orchills. I did review a chest x-ray that showed hyperinflated lung with no evidence of congestion. Blood pressure is elevated 180. He is weight 71.5 kg that is close to his dry weight. He has no edema. Review of Systems Review of Systems All other systems reviewed & are negative unless noted below or in HPI [facility] Medical History Cataract Acute exacerbation of chronic obstructive airways disease ESRD (end stage renal disease) on dialysis ASHD (arteriosclerotic heart disease) Secondary hyperparathyroidism Primary hypertension Peyronie's disease Erectile dysfunction due to arterial insufficiency Chronic venous insufficiency Anemia in chronic kidney disease Anasarca Acute combined systolic and diastolic heart failure Heart attack CAD (coronary artery disease) Diabetes mellitus Depression AV fistula Smoker Asthmatic bronchitis , chronic PTSD (post-traumatic stress disorder) Anxiety MGUS (monoclonal gammopathy of unknown significance) History of blood transfusion Diabetic retinopathy History of myocardial infarction Hypercholesterolemia COVID Surgical History H/O heart artery stent History of bone marrow biopsy H/O eye surgery Hx of knee surgery Hx of vasectomy Family History Mother Liver disease Diabetes Pancreatic cancer Father Diverticulitis Hypertension IBS (irritable bowel syndrome) Stroke Heart disease History of stroke Family history of mental disorder Social History Smoking Status: Current every day smoker Tobacco Type: cigarettes Substance Use Type: Marijuana Substance Abuse Comment: Has not used in a few months ; Medical card that in Sep 2023 Social History Comments: lives with dad [employer] Medications & Allergies Allergies No Known Allergies Allergy (Verified 03/01/24 02:53) Home Medications famotidine 20 mg tablet 40 mg PO QHS 11/13/21 [History Confirmed 03/01/24] atorvastatin 80 mg tablet 80 mg PO QPM 30 days #30 tabs 11/17/21 [Rx Confirmed 03/01/24] nitroglycerin 0.4 mg sublingual tablet 0.4 mg sublingual Q5MIN.X3 PRN Chest Pain30 days #25 tabs 11/17/21 [Rx Confirmed 03/01/24] omeprazole 40 mg capsule,delayed release 40 mg PO QAM 05/09/22 [History Confirmed 03/01/24] aspirin 81 mg chewable tablet (Children's Aspirin) 81 mg PO QAM 09/10/22 [History Confirmed 03/01/24] clopidogrel 75 mg tablet (Plavix) 75 mg PO QAM 09/10/22 [History Confirmed 03/01/24] furosemide 40 mg tablet 40 mg PO QAM 09/10/22 [History Confirmed 03/01/24] isosorbide mononitrate 60 mg tablet,extended release 24 hr 60 mg PO BID 11/12/22[History Confirmed 03/01/24] carvedilol 25 mg tablet (Coreg) 25 mg PO BID #60 tabs 01/09/23 [Rx Confirmed 03/01/24] amlodipine 2.5 mg tablet 2.5 mg PO DAILY #30 tabs 08/18/23 [Rx Confirmed 03/01/24] calcium acetate 667 mg tablet 1,334 mg PO TID 11/13/23 [History Confirmed 03/01/24] insulin lispro 100 unit/mL subcutaneous pen (Humalog KwikPen (U-100) Insulin) 1 sliding scale dose subcut USEASDIRECTD 11/13/23 [History Confirmed 03/01/24] albuterol sulfate 90 mcg/actuation aerosol inhaler 2 puff inhalation Q6HR PRN bronchospasm 30 days #8.5 grams 11/14/23 [Rx Confirmed 03/01/24] insulin glargine 100 unit/mL subcutaneous solution (Lantus U-100 Insulin) 15 unit subcut DAILY 11/26/23 [History Confirmed 03/01/24] hydralazine 50 mg tablet 50 mg PO TID 30 days #90 tabs 02/04/24 [Rx Confirmed 03/01/24] loratadine 10 mg tablet See Rx Instructions .Route .COMPLEX #45 tabs 02/13/24 [Rx Confirmed 03/01/24] sertraline 100 mg tablet 100 mg PO HS 03/01/24 [History Confirmed 03/01/24] Active Medications: Active Medications Acetaminophen (Acetaminophen 325 Mg Tablet) 650 mg PO Q6HR PRN PRN Reason: Pain Scale 1 - 3 or fever Stop: 03/01/25 05:12 Albuterol/Ipratropium (Ipratropium/Albuterol 0.5-3 Mg 3 Ml Ampul.Neb) 3 ml INHALATION QID.RESP RACHELL Stop: 03/01/25 07:59 Last Admin: 03/01/24 09:05 Dose: 3 ml Amlodipine Besylate (Amlodipine 2.5 Mg Tablet) 2.5 mg PO DAILY [facility] Stop: 03/01/25 08:59 Last Admin: 03/01/24 09:40 Dose: 2.5 mg Aspirin (Aspirin 81 Mg Tab.Chew) 81 mg PO QAM [facility] Stop: 03/01/25 08:59 Last Admin: 03/01/24 09:40 Dose: 81 mg Atorvastatin Calcium (Atorvastatin 80 Mg Tablet) 80 mg PO QPM [facility] Stop: 03/01/25 20:59 Calcium Acetate (Calcium Acetate 667 Mg Capsule) 1,334 mg PO TID.WITH.MEALS [facility] Stop: 03/01/25 11:59 Last Admin: 03/01/24 12:09 Dose: 1,334 mg Carvedilol (Carvedilol 25 Mg Tablet) 25 mg PO BID [facility] Stop: 03/01/25 08:59 Last Admin: 03/01/24 09:39 Dose: 25 mg Clopidogrel Bisulfate (Clopidogrel Bisulfate 75 Mg Tablet) 75 mg PO QAM [facility] Stop: 03/01/25 08:59 Last Admin: 03/01/24 10:21 Dose: 75 mg Dextrose (Dextrose 50% In Water 25 Gm/50 Ml Syringe) 0 gm IV-PUSH PRN PRN PRN Reason: Hypoglycemia Stop: 03/01/25 06:40 Famotidine (Famotidine 20 Mg Tablet) 20 mg PO Q48H [facility] Stop: 03/01/25 21:59 Furosemide (Furosemide 40 Mg Tablet) 40 mg PO DAILY@0800 [facility] Stop: 03/01/25 07:59 Last Admin: 03/01/24 09:40 Dose: 40 mg Glucose (Dextrose 40% Gel 15 Gm Tube) 0 gm PO PRN PRN PRN Reason: Hypoglycemia Stop: 03/01/25 06:40 Guaifenesin (Guaifenesin 600 Mg Tab.Er.12h) 1,200 mg PO BID [facility] Stop: 03/01/25 08:59 Last Admin: 03/01/24 09:40 Dose: 1,200 mg Heparin Sodium (Porcine) (Heparin 5,000 Unit/Ml Vial) 5,000 unit SUBCUT Q12HR [facility] Stop: 03/01/25 09:44 Last Admin: 03/01/24 10:18 Dose: 5,000 unit Hydralazine HCl (Hydralazine 50 Mg Tablet) 50 mg PO TID [facility] Stop: 03/01/25 13:59 Ampicillin Sodium/Sulbactam Sodium (Unasyn) 1.5 gm in 100 mls @ 200 mls/hr IV DAILY@1700 [facility] Insulin Aspart (Insulin Aspart 300 Units/3 Ml Insuln.Pen) 0 units SUBCUT ACHS [facility]; Protocol Stop: 03/01/25 10:29 Last Admin: 03/01/24 12:10 Dose: 9 units Insulin Glargine (Insulin Glargine 300 Units/3 Ml Insuln.Pen) 15 units SUBCUT DAILY [facility] Stop: 03/01/25 10:59 Last Admin: 03/01/24 10:19 Dose: 15 units Isosorbide Mononitrate (Isosorbide Mononitrate 24hr Er 60 Mg Tab.Er.24h) 60 mg PO BID [facility] Stop: 03/01/25 20:59 Melatonin (Melatonin 5 Mg Tablet) 5 mg PO QHS PRN PRN Reason: Insomnia Stop: 03/01/25 05:12 Morphine Sulfate (Morphine Sulfate 2 Mg/Ml Vial) 2 mg IV-PUSH Q4H PRN PRN Reason: Pain Scale 8 - 10 Nitroglycerin (Nitroglycerin 0.4 Mg Tab.Subl) 0.4 mg SUBLINGUAL Q5MIN.X3 PRN PRN Reason: Chest Pain Stop: 03/01/25 06:37 Ondansetron HCl (Ondansetron 4 Mg/2 Ml Vial) 4 mg IV-PUSH Q8H PRN PRN Reason: Nausea And Vomiting Stop: 03/01/25 05:12 Pantoprazole Sodium (Pantoprazole 40 Mg Tablet.Dr) 40 mg PO BID.AC.BKFAST.SUPPER [facility] Stop: 03/01/25 07:29 Last Admin: 03/01/24 10:18 Dose: 40 mg Sertraline HCl (Sertraline 100 Mg Tablet) 100 mg PO HS [facility] Stop: 03/01/25 08:59 Sodium Chloride (Sodium Chloride 0.9 % 10 Ml Syringe) 0 ml IV-PUSH PRN PRN PRN Reason: Flush Stop: 03/01/25 02:52 Last Admin: 03/01/24 04:09 Dose: 10 ml Exam Physical Exam Vital Signs: Temp Pulse Resp BP Pulse Ox O2 Del Method 37.1 C 86 20 180/81 H 92 L Room Air 03/01/24 08:00 03/01/24 09:12 03/01/24 09:12 03/01/24 08:00 03/01/24 08:00 03/01/24 08:00 Narrative: Constitutional: Appears comfortable, he has respiratory distress mainly because of the cough. HEENT: Atraumatic, normal cephalic. He has mild pallor with no jaundice or cyanosis. Cardiovascular: RRR, normal S1-S2, no gallop or rub, No JVD Respiratory: Expanded chest, adequate air entry bilaterally with scattered wheezes. No crackles. Gastrointestinal: Soft, non tender, positive bowel sounds. No palpable organs or masses. Extremities: Trace edema Skin: No rashes or bruises Musculoskeletal: No joints swellings or inflammation Neurology: Awake, alert, oriented ?3, No focal motor or sensory deficits Psych: Normal mood and affect Vascular access: Left arm AV fistula with good thrill per Results - Nephrology Labs 03/01/24 02:55 03/01/24 11:19 Labs: 03/01/24 03/01/24 02:55 11:19 BUN 69 H 78 H Creatinine 7.50 H 7.89 H Radiology Impressions Impressions - last 24 hours: Any impression(s) listed above is documentation that was entered by the reading physician into a diagnostic report(s) for Yoel Werner. I have reviewed the report(s) and am incorporating any findings in the treatment plan of this patient where applicable. ECG Data Attestation: I reviewed this ECG and interpreted as documented below: ECG Narrative: Normal sinus rhythm. Old septal infarct A&P - Nephrology Assessment/Plan (1) ESRD (end stage renal disease) on dialysis: Plan: Patient has ESRD related to DM and atherosclerotic renovascular disease on hemodialysis in February 2023 at [place] [facility] unit on MWF schedule (2) Acute hypoxic respiratory failure: Plan: Patient has hypoxemic respiratory failure on admission seems to be related to COPD exacerbation. Has trace edema and hypertension. He is almost at his dry weight. (3) Type 1 diabetes mellitus with hyperglycemia: Plan: Type 1 diabetes currently with hyperglycemia the patient on steroids (4) Acute exacerbation of chronic obstructive airways disease: Plan: Patient has chronic bronchitis/chronic obstructive pulmonary disease exacerbation related to smoking. (5) Hypertensive CKD, ESRD on dialysis: Plan: Patient has elevated blood pressure that is quite variable during hospital stay. Blood pressure has been exacerbated by persistent cough. He is on low-dose amlodipine and furosemide. No significant edema. (6) Anemia in chronic kidney disease: Plan: Patient has anemia in setting of chronic kidney disease in addition he has reported MGUS (7) Secondary hyperparathyroidism: Plan * Patient due for hemodialysis tomorrow. Considering the elevated blood pressure and hypoxemia, he was offered additional hemodialysis or ultrafiltration today to see if it will improve his hypoxemia and shortness of breath however he did refuse. He stated that he was poked multiple times on last dialysis on Saturday as coughing dislodged his needles. I did review the chest x-ray although we have no official readings, does not seems to have significant vascular congestion. Patient is due for dialysis tomorrow. Will arrange dialysis tomorrow and will challenge dry weight as tolerated. * Blood pressure is elevated in the setting of chronic cough and anxiety. I will increase his furosemide to 40 mg twice a day. I will give additional 5 mg amlodipine and increase the dose tomorrow if needed to 10 mg daily. Change dry weight with dialysis. * Patient is currently on Solu-Medrol and ampicillin sulbactam for COPD exacerbation/chronic bronchitis. * Importance of smoking cessation has been addressed with the patient on several times. Will emphasized at the time of discharge as well. * Monitor daily intake and output and renal panel during hospital stay to adjust medications and dialysis as indicated I appreciate this consultation we will be happy to follow the patient with you during hospital stay This document was dictated utilizing computerized voice recognition technology. Errors in grammar, spelling, and or syntax may be noted. The creator of this document does not proofread for this. Documented By: Bryce Coy MD 03/01/24 1258 Signed By: <Electronically signed by MD Bryce Coy> 03/01/24 [address] [facility] Work Phone: [phone] History and physical note Author Isidoro Mesa [facility] March 01, 2024 6:46am Note Date/Time March 01, 2024 6:32 am [facility] [address] [place] [address] Hospitalist H&P Signed Patient: Yoel Werner MR#: [id number] : 1985 Acct:[id number] Age/Sex: 38 / M Adm Date: 4 Loc: 4N Room: [address] [place] [address] Type: ADM IN Attending Dr: Isidoro Mesa DO Copies to: DO Isidoro Leblanc DO~ HPI DATE OF EXAMINATION: 03/01/24 CHIEF COMPLAINT: shortness of breath HISTORY OF PRESENT ILLNESS: Mr Werner is a 38-year-old male with a past medical history Of diabetes, ESRDon dialysis Saturday, hypertension CHF, and MGUS who presents to hospital with a chief complaint of shortness of breath and a cough. Patient states he has been coughing for the last 3 months, he occasionally coughs up clear sputum, denies any green-black or red sputum. He states his coughing and shortness of breath have been getting worse lately on this 3-month period, he did go to [facility] yesterday was diagnosed with bronchitis, received a DuoNeb treatment and was discharged. He was feeling better shortly after discharge however today he felt nauseous for roughly 45 minutes and had numerousepisodes of vomiting so he came back to the hospital for further evaluation and treatment. In emergency room he was found to be hypoxic, desaturating down to 89% on room air however he was refusing supplemental oxygen. At time my exam the patient is quite sleepy as it was 5 in the morning, he did have a few episodes of coughing but there is no sputum. He denies any further issues such as chest pain, constipation or diarrhea but says he still is little bit nauseoushowever it was relieved from Zofran he received emergency room. His last dialysis session was on Saturday, he says his dry weight is 71.5 kg and he had a full session on Saturday removed and then usual amount of fluid. Review of Systems Review of Systems All other systems reviewed & are negative unless noted below or in HPI [facility] Medical History Cataract Acute exacerbation of chronic obstructive airways disease ESRD (end stage renal disease) on dialysis ASHD (arteriosclerotic heart disease) Secondary hyperparathyroidism Primary hypertension Peyronie's disease Erectile dysfunction due to arterial insufficiency Chronic venous insufficiency Anemia in chronic kidney disease Anasarca Acute combined systolic and diastolic heart failure Heart attack CAD (coronary artery disease) Diabetes mellitus Depression AV fistula Smoker Asthmatic bronchitis , chronic PTSD (post-traumatic stress disorder) Anxiety MGUS (monoclonal gammopathy of unknown significance) History of blood transfusion Diabetic retinopathy History of myocardial infarction Hypercholesterolemia COVID Surgical History H/O heart artery stent History of bone marrow biopsy H/O eye surgery Hx of knee surgery Hx of vasectomy Family History Mother Liver disease Diabetes Pancreatic cancer Father Diverticulitis Hypertension IBS (irritable bowel syndrome) Stroke Heart disease History of stroke Family history of mental disorder Social History Smoking Status: Never smoker Tobacco Type: cigarettes Substance Use Type: Marijuana Substance Abuse Comment: Has not used in a few months ; Medical card that in Sep 2023 Social History Comments: lives with dad Meds Medications and Allergies Allergies No Known Allergies Allergy (Verified 03/01/24 02:53) Home Medications famotidine 20 mg tablet 40 mg PO QHS 11/13/21 [History Confirmed 01/09/24] atorvastatin 80 mg tablet 80 mg PO QPM 30 days #30 tabs 11/17/21 [Rx Confirmed 01/09/24] nitroglycerin 0.4 mg sublingual tablet 0.4 mg sublingual Q5MIN.X3 PRN Chest Pain30 days #25 tabs 11/17/21 [Rx Confirmed 01/09/24] omeprazole 40 mg capsule,delayed release 40 mg PO QAM 05/09/22 [History Confirmed 01/09/24] aspirin 81 mg chewable tablet (Children's Aspirin) 81 mg PO QAM 09/10/22 [History Confirmed 01/09/24] clopidogrel 75 mg tablet (Plavix) 75 mg PO QAM 09/10/22 [History Confirmed 01/09/24] furosemide 40 mg tablet 40 mg PO QAM 09/10/22 [History Confirmed 01/09/24] isosorbide mononitrate 60 mg tablet,extended release 24 hr 60 mg PO QHS 11/12/22[History Confirmed 01/09/24] carvedilol 25 mg tablet (Coreg) 25 mg PO BID #60 tabs 01/09/23 [Rx Confirmed 01/09/24] amlodipine 2.5 mg tablet 2.5 mg PO DAILY #30 tabs 08/18/23 [Rx Confirmed 01/09/24] oxycodone 5 mg tablet 5 mg PO BID PRN pain 10 days #20 tabs 10/17/23 [Rx Confirmed 01/09/24] calcium acetate 667 mg tablet 1,334 mg PO TID 11/13/23 [History Confirmed 01/09/24] insulin lispro 100 unit/mL subcutaneous pen (Humalog KwikPen (U-100) Insulin) 1 sliding scale dose subcut USEASDIRECTD 11/13/23 [History Confirmed 01/09/24] albuterol sulfate 90 mcg/actuation aerosol inhaler 2 puff inhalation Q6HR PRN bronchospasm 30 days #8.5 grams 11/14/23 [Rx Confirmed 01/09/24] insulin glargine 100 unit/mL subcutaneous solution (Lantus U-100 Insulin) 15 unit subcut DAILY 11/26/23 [History Confirmed 01/09/24] hydralazine 50 mg tablet 50 mg PO TID 30 days #90 tabs 02/04/24 [Rx] loratadine 10 mg tablet See Rx Instructions .Route .COMPLEX #45 tabs 02/13/24 [Rx] sertraline 100 mg tablet See Rx Instructions .Route .COMPLEX #90 tabs 02/18/24 [Rx] Exam Physical Exam Vital Signs: Temp Pulse Resp BP Pulse Ox O2 Del Method 98.5 F 65 20 186/88 H 91 L Room Air 03/01/24 02:40 03/01/24 05:31 03/01/24 03:34 03/01/24 02:40 03/01/24 03:34 03/01/24 03:34 Narrative: General: Awake alert, no acute distress, sleepy HEENT: head atraumatic, normocephalic, moist mucous membranes Neck: supple no masses, no lymphadenopathy CVS: regular rate and rhythm, no murmurs or gallops Respiratory: Very rhonchorous and bilateral wheezes noted GI: soft, nondistended, nontender, positive bowel sounds with no organomegaly Extremity: moves all extremities, no restrictions of movements, no calf tenderness, no edema, left AV fistula has palpable thrill and bruit. Neuro: AOx3, CN II-VII intact. Moves all extremities in all planes of motion. Skin: dry, intact no rashes or lesions Results - Hospitalist H&P Lab Results Labs: Laboratory Last Values Corrected WBC 10.2 X10E3/uL (4.1-10.5) 03/01/24 02:55 Uncorrected WBC Count 10.2 x10E3/uL (4.1-10.5) 03/01/24 02:55 RBC 3.25 X10E6/uL (3.90-5.60) L 03/01/24 02:55 Hgb 10.0 g/dL (13.0-17.0) L 03/01/24 02:55 Hct 29.5 % (38.8-50.0) L 03/01/24 02:55 MCV 90.7 fl (83.5-101) 03/01/24 02:55 MCH 30.7 pg (27.5-35.2) 03/01/24 02:55 MCHC 33.9 g/dL (32.5-35.6) 03/01/24 02:55 RDW 14.9 % (12.0-14.8) H 03/01/24 02:55 Plt Count 141 x10E3/uL (150-450) L 03/01/24 02:55 MPV 8.9 fl (6.6-10.1) 03/01/24 02:55 Neut % (Auto) 85.6 % (.) 03/01/24 02:55 Lymph % (Auto) 8.0 % (.) 03/01/24 02:55 Pershing % (Auto) 5.4 % (.) 03/01/24 02:55 Eos % (Auto) 0.2 % (.) 03/01/24 02:55 Baso % (Auto) 0.8 % (.) 03/01/24 02:55 Nucleat RBC Rel Count 0.0 /100 WBC (0-0.5) 03/01/24 02:55 Neut # (Auto) 8.8 x10E3/uL (1.8-7.7) H 03/01/24 02:55 Lymph # (Auto) 0.8 x10E3/uL (1.00-4.8) L 03/01/24 02:55 Pershing # (Auto) 0.5 x10E3/uL (0.0-0.8) 03/01/24 02:55 Eos # (Auto) 0.0 x10E3/uL (0.0-0.45) 03/01/24 02:55 Baso # (Auto) 0.1 x10E3/uL (0.0-0.2) 03/01/24 02:55 Monocyte Dist Width 14.33 % (0.00-20.00) 03/01/24 02:55 PT 13.1 Seconds (9.0-12.9) H 03/01/24 02:55 INR 1.1 03/01/24 02:55 APTT 35.7 Seconds (25.1-36.5) 03/01/24 02:55 PHA Creatinine Clear 13.51 03/01/24 02:55 Sodium 127 mmol/L (136-145) L 03/01/24 02:55 Potassium 5.0 mmol/L (3.5-5.1) 03/01/24 02:55 Chloride 94 mmol/L (98-107) L 03/01/24 02:55 Carbon Dioxide 22.6 mmol/L (21.0-31.0) 03/01/24 02:55 Anion Gap 15.4 mEq/L (6.0-15.0) H 03/01/24 02:55 BUN 69 mg/dL (7-25) H 03/01/24 02:55 Creatinine 7.50 mg/dL (0.70-1.30) H 03/01/24 02:55 Est GFR (CKD-EPI) 8.804 mL/Min 03/01/24 02:55 Glucose 477 mg/dL (70-100) H 03/01/24 02:55 Lactic Acid 0.6 mmol/L (0.5-2.2) 03/01/24 04:15 Calcium 8.9 mg/dL (8.6-10.3) 03/01/24 02:55 Total Creatine Kinase 181 U/L (30-223) 03/01/24 02:55 Troponin I High Sens 36.3 pg/mL (0.0-20.0) H 03/01/24 02:55 B-Natriuretic Peptide 2530.0 pg/mL (5-100) H 03/01/24 03:00 SARS-CoV-2 Rap RNA(RT-PCR) Negative (Negative) 03/01/24 03:32 Microbiology Results Micro: Microbiology - Results from entire visit 03/01/24 03:32 Nasopharyngeal SARS-CoV-2, Influenza & RSV (PCR) - Final Assessment & Plan Assessment/Plan (1) Acute hypoxic respiratory failure: Plan: Admit to MedSur floor, inpatient status ? Continue with supplemental oxygen to maintain SpO2 greater 90%, patient was refusing this in the emergency room ? Continue with DuoNebs 4 times daily for acute on chronic bronchitis ? Solu-Medrol 40 every 12 hours ?Antitussives as ordered ? Respiratory PCR ordered and negative (2) ESRD (end stage renal disease) on dialysis: Plan: ? Saturday schedule, nephrology consulted (3) Type 1 diabetes mellitus with hyperglycemia: Plan: ? Continue home medications ? Glucose checks ACHS ? He was hyperglycemic on admission above 400, will receive 10 units of regular insulin and 10 units of aspart upon admission (4) AV fistula: Plan: Appears working properly Plan ? DVT prophylaxis addressed ? Renal diet on dialysis ? Full code IP vs OBS Justification Based on differential dx, clinical care plan, and risk of adverse events, if untreated, in my clinical judgement this patient requires an acute care setting as: INPATIENT because of an expectation of an over 2 midnight stay. Estimated length of stay (# of days): 3 Documented By: Isidoro Mesa DO 03/01/24 0628 Signed By: <Electronically signed by Isidoro Mesa DO> 03/01/24 0646 [facility] Work Phone: 1(818) 282-659004-16-2024 History of Present illness Narrative* Brianna Gomez DO - 12/03/2023 2:50 PM EDT Subjective Yoel Werner is a 38 y.o. male Chief Complaint Follow-up 38-year-old type I diabetic returns for follow-up and is doing well without any cardiovascular events, complaints or nitrate usage, hospitalizations or heart failure now with preserved and improved left ventricular function. He has a history of large anterior WV with severe three-vessel disease and eventually underwent [...] by mouth once daily at bedtime., Disp: ,Rfl: calcium acetate (Phoslo) 667 mg capsule, Take [...] 1,000 unit/mL solution, Infuse 1 mL (1,000 Units)into a venous catheter 3 times a week., [...] benign 3. Mixed hyperlipidemia 4. History of WV (myocardial infarction) 5. Status post insertion of drug eluting coronary artery stent 6. ESRD (end stage renal disease) on dialysis (Multi) 7. Current every day smoker 8. Type 2 diabetes mellitus with chronic kidney disease on chronic dialysis, with long-term currentuse of insulin (Multi) 9. BMI 22.0-22.9, adult Scribe Attestation By signing my name below, Alana Ponce LPN, Scribe attest that this documentation has been prepared under the direction and in the presence of Nicole Gomez DO. Provider Attestation - Scribe documentation All medical record entries made by the Scribe were at my direction and personally dictated by me. Génesis reviewed the chart and agree that the record accurately reflects my personal performance of the history, physical exam, discussion and plan. [facility] Work Phone: 1(422) 711-117804-16-2024 Instructions* Patient Instructions* Alana Pace LPN - 12/03/2023 2:50 PM [...] time of your visit. documented in [facility] Work Phone: 1(876) 394-371704-09-2024 Procedure [facility]03-14-2024 Procedure [facility]02-12-2024 History of Present illness Narrative* Nelida Carrington NP - 09/30/2023 1:00 PM EST Subjective Patient ID: Yoel Werner is a [...] down bicep and into elbow and sometimes intowrist. Limited ROM. Pain at rest 3/10. Pain [...] f/u s/p [facility] done [facility] documented in [facility] encounterCo[facility] [id number] Hospital Discharge instructions Follow Up Care 09/05/2023 13:18:24 With:TRUONG MOLINA, Robyn Tovar, URL Address: [facility] [address] [place] [address]- [phone] When: Unknown [facility] 01-11-2024 Evaluation note* Encounter Date Diagnosis Assessment Notes Treatment Notes Treatment Clinical Notes Aug, AV fistula (ICD-10 - I77.0) [...] the patient as needed in the future. [facility] Other 01-08-2024 Evaluation note* Encounter Date Diagnosis Assessment Notes Treatment Notes Treatment Clinical Notes Aug, Diabetes mellitus with chronic kidney disease (ICD-10 - E11.22) [facility] Other 12-31-2023 Consult note Author Brianna Stewart [facility] August 18, 2023 11:30am Note Date/Time August 18, 2023 11:30am [facility] [address] [place] [address] Cardiology Consult Note Signed Patient: Yoel Werner MR#: [id number] : 1985 Acct:[id number] Age/Sex: 38 / M Adm Date: 3 Loc: Room: [address] [place] [address] Type: ADM INOo Attending Dr: Jorge Mederos DO Copies to: Eusebio Olivares,DO Brianna Oleary MD~ Cardiology HPI History of Present [...] now on dialysis. He presented yesterday to [facility] with anginal type discomfort. He states [...] no additional complaints, except as documented [facility] Medical History Anxiety Asthmatic bronchitis , [...] Code(s): I25.10 - Atherosclerotic heart disease of [place] coronary artery without angina pectoris (2) Chest [...] stable and suitable for discharge. Documented By: Brianna Stewart MD 1126 Signed By: <Electronically signed by MD Brianna Stewart> 08/18/23 1132 [facility] Work Phone: [phone]) 762-713812-31-2023 History and physical note Author Law Cano [facility] August 18, 2023 6:58am Note Date/Time August 18, 2023 5:48am [facility] [address] [place] [address] Hospitalist H&P Signed Patient: Yoel Werner MR#: [id number] : 1985 Acct:[id number] Age/Sex: 38 / M Adm Date: 3 Loc: Room: [address] [place] [address] Type: ADM INOo Attending Dr: Law Cano MD Copies to: DO Law Leblanc MD~ HPI DATE OF EXAMINATION: 08/18/23 HISTORY OF PRESENT ILLNESS: This is a pleasant 38M with PMH of HTN, DM, HLD, CAD s/p stenting, HF, ESRD on HD, GERD, anxiety who presented with chest pain to [facility] ER and transferred for the evaluation and [...] care Discussed with:?the medical team, the patient [facility] Medical History Anxiety Asthmatic bronchitis , [...] signed by Law Cano MD> 08/18/23 0658 [facility] Work Phone: [phone] Evaluation note* Encounter Date Diagnosis Assessment Notes [...] Lexapro Declines adjustment in dose or augmentation [facility] Other 11-28-2023 Evaluation note* Encounter Date Diagnosis [...] low closely. No s/s GIB No bleed [facility] Other 11-16-2023 Evaluation note* Encounter Date Diagnosis [...] patient back in 2 months for checkup. [facility] Other 10-30-2023 [facility] Evaluation note* Encounter Date Diagnosis Assessment Notes Treatment Notes Treatment Clinical Notes May, AV fistula (ICD-10 - I77.0) I did examine the fistula. There does appear to be a competing outflow segment of the vein in the forearm. I suggest we try to either coil this or tied off. We will start with a less invasive option going to the Gis Mapping Technician for coil embolization of a cephalic venous tributary in the left forearm. This is explained to the patient he understands agrees with plan all his questions were addressed and the patient consents to this today. [facility] Other 10-10-2023 Evaluation note* Encounter Date Diagnosis [...] w/ Nephrology. Monitor monthly No s/s bleeding [facility] Other 08-25-2023 [facility]* Encounter Date Diagnosis Assessment [...] addressed. We will schedule this for Saturday. [facility] Other 07-12-2023 Evaluation note* Encounter Date Diagnosis Assessment Notes Treatment Notes Treatment Clinical Notes Feb, Chronic kidney disea se, stage 5 (ICD-10 - N18.5) He has a CKD due to the DM and HTN. Patient reported uremic symptoms. His AVF has matured. He is interested in HD and agreed to initiate dialysis. I coordinated with the [place] dialysis unit for his admission. Also gave [...] due to the advanced CKD and hyperkalemia [facility] Other 06-26-2023 Evaluation note* Encounter Date Diagnosis [...] due to the advanced CKD and hyperkalemia [facility] Other 06-19-2023 Discharge summary Author Denilson Gomez [facility] February 04, 2023 5:27pm Note Date/Time February 04, 2023 5:16 pm [facility] [address] [place] [address] Discharge Summary Signed with Addenda Patient: Yoel Werner MR#: [id number] : 1985 Acct:[id number] Age/Sex: 37 / M Adm Date: 3 Loc: Room: Attending Dr: Denilson Gomez DO Copies to: DO Denilson Leblanc DO~ ADDENDUM1 Correction: Discharge diagnosis/final diagnosis successful PCI proximal/mid RCA x2 JUAN C Addendum Documented By: Denilson Gomez DO 02/04/231726 Addendum Signed By: <Electronically signed by Denilson Gomez DO> 02/04/231726 Providers Date of Discharge: 02/04/23 Discharging Provider: Denilson Gomez Primary Care Provider: Eusebio Olivares Discharge Diagnosis (1) Kidney failure: (2) History of placement of stent in LAD coronary artery: (3) GERD (gastroesophageal reflux disease): (4) Diabetes: Final Diagnosis Final Discharge Diagnosis: 1. ASHD 2. History of PCI LAD with prior anterior WV 3. Residual RCA disease 4. Stage IV/V chronic kidney disease 6. Type 1 diabetes mellitus 7. Successful PCI proximal/mid LAD x2 JUAN C Summary Hospital Course Hospital course: 37-year-old gentleman with severe coronary artery disease and type 1 diabetes mellitus status post anterior WV with revascularization of the LAD and residual [...] doctor or pharmacist, without first calling the crisis nurse who implanted the stent. If you require [...] weight lifting, stair steppers, etc. until the crisis nurse approves these activities. Check with the crisis nurse on your first follow-up visit. CALL YOUR PHYSICIAN at [phone]: -If bleeding should occur from the catheter insertion site- apply pressure to the site then immediately call us. -Report any fever, redness, drainage, increased swelling, or firmness at the catheter insertion site. Some bruising or slight swelling may be present at thetime of discharge. -Should arm or leg become cold, numb, white, or blue, contact the crisis nurse immediately. -IF you should experience episodes of [...] is recommended. Please call Central Scheduling at [phone] to schedule your appointment.] The attending crisis nurse or [facility] nurse clinician should provide you with specific instructions regarding activity, diet, medications, and further follow up for you. Follow the medication instructions provided on your discharge. If the dosages and instructions on this sheet differ from the dosage and instructions on the bottle, follow the instructions on the bottle. [facility] is not responsible for incorrect prescription [...] <Electronically signed by Denilson Gomez DO> 02/04/231717 [facility] Work Phone: 1([phone]) 491-260206-19-2023 [facility]06[facility] Evaluation note* Encounter Date Diagnosis Assessment [...] is pleased with his outcome and care. [facility] Other 04-25-2023 [facility]-2023 Evaluation note* Encounter Date Diagnosis Assessment Notes Treatment Notes Treatment Clinical Notes Nov, Anemia in chronic kidney disease (ICD-10 - D63.1) Nov, Chronic kidney disease, stage 5 (ICD-10 - N18.5) [facility] Other 04-12-2023 Evaluation note* Encounter Date Diagnosis [...] scheduled in the near future for intervention. [facility] Other 04-03-2023 Evaluation note* Encounter Date Diagnosis [...] call office to initiate hemodialysis. Nov, Lauri finch w cr kid I-IV (ICD-10 - I12.9) [...] the losartan due to the advanced CKD. [facility] Other 03-27-2023 Evaluation note* Encounter Date Diagnosis Assessment Notes Treatment Notes Treatment Clinical Notes Oct, Primary hypertension (ICD-10 - I10) [facility] Other 03-07-2023 Evaluation note* Encounter Date Diagnosis Assessment Notes Treatment Notes Treatment Clinical Notes Oct, Type 1 diabetes mellitus with hyperglycemia (ICD-10 - E10.65) [facility] Other 02-28-2023 Evaluation note* Encounter Date Diagnosis [...] DM management. Continue losartan for renal protection. [facility] Other 02-22-2023 Evaluation note* Encounter Date Diagnosis [...] meantime with any issues or concerns whatsoever. [facility] Other 02-20-2023 Evaluation note* Encounter Date Diagnosis [...] in chronic kidney disease (ICD-10 - D63.1) [facility] Other 02-15-2023 Progress note Author Ross Catherine [facility] October 03, 2022 2:51pm Note Date/Time October 03, 2022 2:48pm [facility] [address] [place] [address] Hospitalist Progress Note Signed Patient: Yoel Werner MR#: [id number] : 1985 Acct:[id number] Age/Sex: 37 / M Adm Date: 3 Loc: Room: [address] [place] [address] Type: ADM INOo Attending Dr: Ross Catherine [...] 81 Mg Tab.Chew PO 10/04/23 08:59 QAM [facility] Atorvastatin Calcium 80 mg 10/03/22 21:00 Atorvastatin 80 Mg Tablet PO 10/03/23 20:59 QPM [facility] Carvedilol 12.5 mg 10/03/22 17:00 Carvedilol 12.5 Mg Tablet PO 10/03/23 16:59 BID.WITH.MEALS [facility] Clopidogrel Bisulfate 75 mg 10/04/22 09:00 Clopidogrel Bisulfate 75 Mg Tablet PO 10/04/23 08:59 QAM [facility] Ergocalciferol 1,250 mcg 10/10/22 09:00 Ergocalciferol 1,250 Mcg (50,000 Units) Capsule PO 10/10/23 08:59 We@0900 [facility] Escitalopram Oxalate 10 mg 10/03/22 22:00 Escitalopram 10 Mg Tablet PO 10/03/23 21:59 QHS [facility] Famotidine 40 mg 10/03/22 22:00 Famotidine 20 Mg Tablet PO 10/03/23 21:59 QHS [facility] Furosemide 40 mg 10/04/22 09:00 Furosemide 40 Mg Tablet PO 10/04/23 08:59 QAM [facility] Hydralazine HCl 50 mg 10/03/22 22:00 Hydralazine 50 Mg Tablet PO 10/03/23 21:59 TID [facility] Insulin Glargine 12 units 10/04/22 09:00 Insulin Glargine 300 Units/3 Ml Insuln.Pen SUBCUT 10/04/23 08:59 QAM [facility] Insulin Human Lispro unit 10/03/22 14:45 Insulin Lispro (Rashard/Ed Only) 300 Unit/3 Ml Vial SUBCUT 10/03/23 14:44 USEASDIRECTD [facility] Isosorbide Mononitrate 30 mg 10/03/22 22:00 Isosorbide Mononitrate 24hr Er 30 Mg Tab.Er.24h PO 10/03/23 21:59 QHS [facility] Nitroglycerin 0.4 mg 10/03/22 14:31 Nitroglycerin 0.4 Mg Tab.Subl SUBLINGUAL 10/03/23 14:30 Q5MIN.X3 PRN Chest Pain Pantoprazole Sodium 40 mg 10/04/22 09:00 Pantoprazole 40 Mg Tablet.Dr PO 10/04/23 08:59 QAM [facility] Sodium Chloride [...] signed by Ross Catherine MD> 10/03/22 1451 [facility] Work Phone: 1(333) 892-202802-15-2023 History and physical note Author Reina Renae [facility] October 03, 2022 4:54am Note Date/Time October 03, 2022 4:38am [facility] [address] [place] [address] Hospitalist H&P Signed Patient: TuttaYoel garcia MR#: [id number] : 1985 Acct:[id number] Age/Sex: 37 / M Adm Date: 3 Loc: 4 Room: 1L4035-5 Type: ADM IN Attending Dr: Reina Renae DO Copies to: DO Reina Leblanc, ~ HPI DATE OF EXAMINATION: 10/03/22 [...] 23:35 RBC 2.74 X10E6/uL (3.90-5.60) L 10/02/22 23: Hgb 8.3 g/dL (13.0-17.0) L 10/02/22 23: Hct 23.8 % (38.8-50.0) L 10/02/22: MCV 87.1 fl (83.5-101) 10/02/22: MCH 30.4 pg (27.5-35.2) 10/02/22: MCHC 34.9 g/dL (32.5-35.6) 10/02/22: RDW 13.2 % (12.0-14.8) 10/02/22: Plt Count 185 x10E3/uL (150-450) 10/02/22 MPV 8.2 fl (6.6-10.1) 10/02/22: Neut % (Auto) 70.2 % (.) 10/02/22: Lymph % (Auto) 19.9 % (.) 10/02/22: Pershing % (Auto) 5.5 % (.) 10/02/22: Eos % (Auto) 2.7 % (.) 10/02/22: Baso % (Auto) 1.7 % (.) 10/02/22: Nucleat RBC Rel Count 0.0 /100 WBC (0-0.5) 10/02/22: Neut # (Auto) 5.1 x10E3/uL (1.8-7.7) 10/02/22: Lymph # (Auto) 1.4 x10E3/uL (1.00-4.8) 10/02/22 23: Pershing # (Auto) 0.4 x10E3/uL (0.0-0.8) 10/02/22: Eos # (Auto) 0.2 x10E3/uL (0.0-0.45) 10/02/22: Baso # (Auto) 0.1 x10E3/uL (0.0-0.2) 10/02/22: Monocyte Dist Width 14.39 % (0.00-20.00) 10/02/22 [...] pg/mL (5-100) H 10/02/22 23:35 Documented By: Reina Renae DO 10/03/22 04 35 Signed By: <Electronically signed by Reina Renae DO> 10/03/22 0454 [facility] Work Phone: 1(653) 253-819301-30-2023 [facility] Progress note Author Haydee Lira [facility] September 12, 2022 3:35pm Note Date/Time September 10, 2022 5 :14pm [facility] [place] [address] Hem/Onc Follow Up Note - OP Signed Patient: Yoel Werner MR#: [id number] : 1985 Acct:[id number] Age/Sex: 37 / M Type: REG RCR Copies to: MD Eusebio Castellano,DO~ Subjective Date/Time of Service: Date of Service: [...] of asthma, hives, eczema or rhinitis. [facility] - Medical History Medical History: Medical [...] IgM 189 H, Serum Immunofixation Comment:, Free [place] LC, Quant 128.0 H, Free [place] LC, Quant 77.5 H, Free [place]/Lambda Ratio 1.65 Assessment and Plan (1) MGUS [...] for coordination of care (as documented) and [id number] counseling of patient and/or family. Dictated By: Haydee Lira APRN DD/ 1707 Signed By: <Electronically signed by JOSH Lira> 09/12/22 7797 [facility] Work Phone: 1(121) 601-797801-18-2023 Evaluation note* Encounter Date Diagnosis Assessment Notes [...] we will schedule this in near future. [facility] Other 01-12-2023 Evaluation note* Encounter Date Diagnosis [...] CKD. I explained to potential need of FIRE SUPPORT SPECIALIST in near future. I discussed with him different option of FIRE SUPPORT SPECIALIST including PD, transplant, HD. He attended the [...] DM management. Continue losartan for renal protection. [facility] Other 01-11-2023 Hospital Discharge instructions Patient Education [...] Follow these instructions at home: Medicines Take qgrk-dun-apfihul and prescription medicines only as told by [...] 08/02/2001 Document Revised: 07/18/2018 Document Reviewed: 08/21/2017 [email or web address]. Follow Up Care 07/16/2022 11:13:53 With:TRUONG MOLINA, Robyn Tovar, URL Address: [facility] [address] [place] [address]- When: Unknown [facility] 12-26-2022 Consult note Author Nanyc Haas [facility] August 13, 2022 1:06pm Note Date/Time August 13, 2022 1:01pm [facility] [address] [place], [place] [id number] Nephrology Consult Note Signed Patient: Yoel Werner MR#: [id number] : 1985 Acct:[id number] Age/Sex: 37 / M Adm Date: 2 Loc: Room: [address] [place] [address] Type: ADM INOo Attending Dr: Law Cano MD Copies to: MD Eusebio Tao DO Marwan Wassouf, MD~ Providers Consult Date: 08/13/22 Requesting Provider: Law Cano MD Primary Care Provider: Eusebio Olivares DO [facility] Reason for Consult: Acute kidney injury on chronic kidney disease History of Present Illness: This is a 37-year-old male patient with past medical history of insulin- dependent diabetes mellitus, hypertension, hyperlipidemia, chronic kidney disease stage IV with baseline creatinine around 3.2 to 3.4 mg deciliter, history of non-ST WV status post stent placement. Patient brought in to the hospital for sudden onset of chest pain and syncope while he was urinating at home. Patient was a little drowsy when he arrived but this resolved. Patient stated his chest pain is similar to when he had acute WV. Patient also reportedsome shortness of breath. Blood [...] 50 Mg Tablet) 50 mg PO TID [facility] Stop: 08/13/23 08:59 Last Admin: 08/13/22 08:22 Dose: 50 mg Magnesium Sulfate (Magnesium Sulf 2gm-*Swfi*) 2 gm in 50 mls @ 25 mls/hr IV DAILY PRN PRN Reason: Magnesium Level < 1.5 Stop: 08/13/23 04:46 Insulin Aspart (Insulin Aspart 300 Units/3 Ml Insuln.Pen) 0 units SUBCUT TID..[facility]; Protocol Stop: 08/13/23 07:59 Last Admin: 08/13/22 11:13 Dose: 3 units Insulin Glargine (Insulin Glargine 300 Units/3 Ml Insuln.Pen) 12 units SUBCUT DAILY [facility] Stop: 08/13/23 08:59 Last Admin: 08/13/22 09:07 Dose: 12 units Isosorbide Mononitrate (Isosorbide Mononitrate 24hr Er 30 Mg Tab.Er.24h) 30 mg PO DAILY [facility] Stop: 08/13/23 08:59 Last Admin: 08/13/22 08:22 Dose: 30 mg Nitroglycerin (Nitroglycerin 0.4 Mg Tab.Subl) 0.4 mg SUBLINGUAL Q5MIN.X3 PRN PRN Reason: Chest Pain Stop: 08/13/23 04:50 Non-Formulary Medication (Epoetin Alexus-Epbx [Retacrit]) 20,000 unit SUBCUT QMONTH [facility] Stop: 08/13/23 04:59 Omeprazole (Omeprazole 20 Mg Capsule.Dr) 40 mg PO DAILY [facility] Stop: 08/13/23 08:59 Last Admin: 08/13/22 08:22 [...] Appearance Clear Urine pH 5.5 Ur Specific [place] Harris 1.011 Urine Protein 300 H Urine Glucose (UA) 250 H Urine Ketones Negative Urine Occult Blood 1+ H Urine Nitrite Negative Ur Leukocyte Esterase Negative Urine RBC 10-19 H Urine WBC 1-2 Urine Bacteria None seen Radiology Impressions Impressions - last 24 hours: Impressions Head CT 08/12/22 23:07 IMPRESSION: No acute intracranial findings. Impression dictated by: Alec Flynn M.D.08/13/2022 11:25 AM Dictation Location: [place] [address] Chest X-Ray 08/13/22 04:55 IMPRESSION: No acute process. Impression dictated by: Alec Flynn M.D.08/13/2022 8:22 AM Dictation Location: [place] [address] Any impression(s) listed above is documentation that [...] concern. Documented By: Nancy Haas MD 08/13/22 2457 Signed By: <Electronically signed by Nancy Haas MD> 08/13/22 0314 [facility] Work Phone: 1(436) 296-497112-26-2022 History and physical note Author Isidoro Mesa [facility] August 13, 2022 4:55am Note Date/Time August 13, 2022 4:18am [facility] [address] [place] [address] Hospitalist H&P Signed Patient: Yoel Werner MR#: [id number] : 1985 Acct:[id number] Age/Sex: 37 / M Adm Date: 2 Loc: 3T Room: [address] [place] [address] Type: ADM INOo Attending Dr: Isidoro Mesa [...] % (Auto) 29.2 % (.) 08/12/22 23:58 Pershing % (Auto) 8.9 % (.) 08/12/22 23:58 Eos % (Auto) 2.7 % (.) 08/12/22 23:58 Baso % (Auto) 1.5 % (.) 08/12/22 23:58 Nucleat RBC Rel Count 0.1 /100 WBC (0-0.5) 08/12/22 23:58 Neut # (Auto) 3.1 x10E3/uL (1.8-7.7) 08/12/22 23:58 Lymph # (Auto) 1.6 x10E3/uL (1.00-4.8) 08/12/22 23:58 Pershing # (Auto) 0.5 x10E3/uL (0.0-0.8) 08/12/22 23:58 [...] pH 5.5 (5.0-9.0) 08/13/22 00:49 Ur Specific [place] 1.011 (1.001-1.030) 08/13/22 00:49 Urine Protein 300 [...] See above Documented By: Isidoro Mesa DO 08/13/22415 Signed By: <Electronically signed by Isidoro Mesa DO> 08/13/22454 [facility] Work Phone: 1(799) 211-213912-15-2022 Miscellaneous Notes* Telephone Encounter - Naun Willis - 08/02/2022 10:39 AM EST Returned call to patient regarding kidney transplant, he is currently smoking cigarettes about 1/2 pack per day. Advised patient once he is nicotine free for 30-days to contact our office. Closing referral at this time and patient verbalized understanding. [facility]* Encounter Date Diagnosis Assessment Notes [...] CKD. I explained to potential need of FIRE SUPPORT SPECIALIST in near future. I discussed with him different option of FIRE SUPPORT SPECIALIST including PD, transplant, HD. I referred him [...] DM management. Continue losartan for renal protection. Giveit100 Other 10-11-2022 Progress note Author Jorje Small [facility] May 29, 2022 4:50pm Note Date/Time May 29, 2022 4 :42pm [facility] at [address] [address] Hem/Onc Follow Up Note - OP Signed Patient: Yoel Werner MR#: [id number] : 1985 Acct:[id number] Age/Sex: 37 / M Type: REG RCR Copies to: MD Eusebio Castellano,DO~ Subjective Date/Time of Service: Date of Service: [...] history of asthma, hives, eczema or rhinitis. [facility] Medical History: Medical History [...] glargine 100 unit/mL (3 mL) subcutaneous pen (Ocean Executiveaglar IIZI groupikPen U-100 Insulin) 20 unit subcut DAILY 09/11/21 [...] for coordination of care (as documented) and bhfv-ye-dfym counseling of patient and/or family. Dictated By: Jorje Small MD DD/ 1641 Signed By: <Electronically signed by Jorje Small MD> 05/29/22 1650 [facility] Work Phone: [phone]) 336-104810-05-2022 Evaluation note* Encounter Date Diagnosis Assessment Notes [...] CKD. I explained to potential need of FIRE SUPPORT SPECIALIST in near future. I discussed with him different option of FIRE SUPPORT SPECIALIST including PD, transplant, HD. I referred him [...] DM management. Continue losartan for renal protection. Giveit100 Other 09-21-2022 Consult note Author Jorje Small [facility] May 09, 2022 3:02pm Note Date/Time May 09, 2022 2:53pm [facility] at [place] [id number] Hem/Onc Consult Note - OP Signed Patient: Yoel Werner MR#: [id number] : 1985 Acct:[id number] Age/Sex: 37 / M Type: REG RCR Copies to: MD Eusebio Castellano DO~ HPI Date/Time of Service: Date of Service: 05/09/2022 Time of Service: 14:53 Referring Provider/PCP: Referring Provider: Angel Mejía MD PCP: Eusebio Olivares DO - History of Present Illness [...] assessment is warranted and concern on the manager winter part is appropriate and justified. We will [...] for coordination of care (as documented) and qirr-ho-nadv counseling of patient and/or family. Dictated By: Jorje Small MD DD/ 1453 Signed By: <Electronically signed by Jorje Small MD> 05/09/22 1502 [facility] Work Phone: [phone] 631-969909-02-2022 Evaluation note* Encounter Date Diagnosis Assessment Notes Treatment Notes Treatment Clinical Notes Apr, Anemia of renal disease (ICD-10 - D63.1) Apr, Chronic kidney disease, stage III (moderate) (ICD-10 - N18.30) [facility]it[facility] Other 08-17-2022 Evaluation note* Encounter Date Diagnosis Assessment Notes Treatment Notes Treatment Clinical Notes Mar, Secondary hyperparathyroidism (ICD-10 - N25.81) Giveit[facility] Other 08-11-2022 Evaluation note* Encounter Date Diagnosis [...] explained to him due to the recent WV and dual antiplatelet therapy biopsy will be [...] CKD. I explained to potential need of FIRE SUPPORT SPECIALIST in near future. I discussed with him different option of FIRE SUPPORT SPECIALIST including PD, transplant, HD. Mar, Lauri finch w cr kid I-IV (ICD-10 - I12.9) [...] DM management. Continue losartan for renal protection. Giveit100 Other 05-03-2022 Evaluation note* Encounter Date Diagnosis [...] on the progression of CKD. December, Lauri finch w cr kid I-IV (ICD-10 - I12.9) [...] DM management. Continue losartan for renal protection. Giveit[facility] Other 03-23-2022 Evaluation note* Encounter Date Diagnosis [...] DM management. Continue losartan for renal protection. Giveit100 Other 02-14-2022 NoteHNO ID: [id number] Author: Zita Allen MD Service: ? Author Type: Physician [...] monitor PDR OU -sees Dr. Gonzales Retina Brewster -s/p Avastin OU last 09/08/21 -s/p PPV/SO/scleral buckle(unsure if buckle,not visible on exam) 09/18/21 I, Zita Allen MD, have confirmed and edited as [...] agree with all of its relevant components. Zita Allen MD October 02[facility] note Author Jorje [facility] May 09, 2022 3:02pm Note Date/Time May 09, 2022 2:53pm [facility] [place] [address] Hem/Onc Consult Note - OP Signed Patient: Yoel Werner MR#: [id number] : 1985 Acct:[id number] Age/Sex: 37 / M Type: REG RCR Copies to: MD Eusebio Castellano DO~ HPI Date/Time of Service: Date of Service: 05/09/2022 Time of Service: 14:53 Referring Provider/PCP: Referring Provider: Angel Mejía MD PCP: Eusebio Olivares DO - History of Present Illness [...] occasional pain or discomfort in the spine PMF - Medical History Medical History: Medical History [...] glargine 100 unit/mL (3 mL) subcutaneous pen (Maryaglhumaira SolomonPen U-100 Insulin) 20 unit subcut DAILY 09/11/21 [...] assessment is warranted and concern on the manager winter part is appropriate and justified. We will [...] for coordination of care (as documented) and gvei-ce-fzok counseling of patient and/or family. Dictated By: Jorje Small MD DD/ 1453 Signed By: <Electronically signed by Jorje Small MD> 05/09/22 1502 [facility] Work Phone: Consult note Author Nancy Haas [facility] August 13, 2022 1:06pm Note Date/Time August 13, 2022 1:01pm [facility] [address] [place] [address] Nephrology Consult Note Signed Patient: Yoel Werner MR#: [id number] : 1985 Acct:[id number] Age/Sex: 37 / M Adm Date: 2 Loc: Room: [address] [place] [address] Type: ADM INOo Attending Dr: Law Cano MD Copies to: MD Eusebio Tao DO Marwan Wassouf, MD~ Providers Consult Date: 08/13/22 Requesting Provider: Law Cano MD Primary Care Provider: Eusebio Olivares DO HPI Reason for Consult: Acute kidney injury on chronic kidney disease History of Present Illness: This is a 37-year-old male patient with past medical history of insulin- dependent diabetes mellitus, hypertension, hyperlipidemia, chronic kidney disease stage IV with baseline creatinine around 3.2 to 3.4 mg deciliter, history of non-ST WV status post stent placement. Patient brought in to the hospital for sudden onset of chest pain and syncope while he was urinating at home. Patient was a little drowsy when he arrived but this resolved. Patient stated his chest pain is similar to when he had acute WV. Patient also reportedsome shortness of breath. Blood [...] Scale 1 - 3 or fever Stop: 12/26/23 04:46 Aspirin (Aspirin 81 Mg Tab.Chew) 81 [...] 50 Mg Tablet) 50 mg PO TID [facility] Stop: 08/13/23 08:59 Last Admin: 08/13/22 08:22 Dose: 50 mg Magnesium Sulfate (Magnesium Sulf 2gm-*Swfi*) 2 gm in 50 mls @ 25 mls/hr IV DAILY PRN PRN Reason: Magnesium Level < 1.5 Stop: 08/13/23 04:46 Insulin Aspart (Insulin Aspart 300 Units/3 Ml Insuln.Pen) 0 units SUBCUT TID.WM.HS [facility]; Protocol Stop: 08/13/23 07:59 Last Admin: 08/13/22 11:13 Dose: 3 units Insulin Glargine (Insulin Glargine 300 Units/3 Ml Insuln.Pen) 12 units SUBCUT DAILY [facility] Stop: 08/13/23 08:59 Last Admin: 08/13/22 09:07 Dose: 12 units Isosorbide Mononitrate (Isosorbide Mononitrate 24hr Er 30 Mg Tab.Er.24h) 30 mg PO DAILY [facility] Stop: 08/13/23 08:59 Last Admin: 08/13/22 08:22 Dose: 30 mg Nitroglycerin (Nitroglycerin 0.4 Mg Tab.Subl) 0.4 mg SUBLINGUAL Q5MIN.X3 PRN PRN Reason: Chest Pain Stop: 08/13/23 04:50 Non-Formulary Medication (Epoetin Alexus-Epbx [Retacrit]) 20,000 unit SUBCUT QMONTH [facility] Stop: 08/13/23 04:59 Omeprazole (Omeprazole 20 Mg Capsule.Dr) 40 mg PO DAILY [facility] Stop: 08/13/23 08:59 Last Admin: 08/13/22 08:22 [...] Appearance Clear Urine pH 5.5 Ur Specific [place] 1.011 Urine Protein 300 H Urine Glucose (UA) 250 H Urine Ketones Negative Urine Occult Blood 1+ H Urine Nitrite Negative Ur Leukocyte Esterase Negative Urine RBC 10-19 H Urine WBC 1-2 Urine Bacteria None seen Radiology Impressions Impressions - last 24 hours: Impressions Head CT 08/12/22 23:07 IMPRESSION: No acute intracranial findings. Impression dictated by: Alec Flynn M.D.08/13/2022 11:25 AM Dictation Location: [place] [address] Chest X-Ray 08/13/22 04:55 IMPRESSION: No acute process. Impression dictated by: Alec Flynn M.D.08/13/2022 8:22 AM Dictation Location: [place] [address] Any impression(s) listed above is documentation that [...] <Electronically signed by Nancy Haas MD> 08/13/22 1303 [facility] Work Phone: Consult note Author W Jason [facility] October 03, 2022 5:14pm Note Date/Time October 03, 2022 5:06pm [facility] [address] [place] [address] Cardiology Consult Note Signed Patient: Yoel Werner MR#: [id number] : 1985 Acct:[id number] Age/Sex: 37 / M Adm Date: 3 Loc: Room: [address] [place] [address] Type: ADM INOo Attending Dr: Ross Catherine [...] 2021 he presented with acute non-ST elevation WV, in conjunction with type 1 diabetes and [...] Lymph # (Auto) 1.4 1.7 (1.00-4.8) x10E3/uL Pershing # (Auto) 0.4 0.3 (0.0-0.8) x10E3/uL Eos [...] Code(s): I25.10 - Atherosclerotic heart disease of [place] coronary artery without angina pectoris (5) Diabetes: Code(s): E11.9 - Type 2 diabetes mellitus without complications Documented By: Denilson Gomez DO 10/03/221702 Signed By: <Electronically signed by Denilson Gomez DO> 10/03/22 1710 [facility] Work Phone: Discharge summary Author Jorge Mederos [facility] August 18, 2023 1:30pm Note Date/Time August 18, 2023 1:31pm [facility] [address] [place] [address] Discharge Summary Signed Patient: Yoel Werner MR#: [id number] : 1985 Acct:[id number] Age/Sex: 38 / M Adm Date: 3 Loc: Room: [address] [place] [address]: Jorge Mederos DO Copies to: DO Jorge Leblanc DO~ Providers Date of Discharge: 08/18/23 Discharging Provider: Jorge Mederos Primary Care Provider: Eusebio Olivares Consults: 08/18/23 05:35 Consult to Cardiology Routine Consult to Nephrology Routine Discharge Diagnosis (1) CAD (coronary artery disease): (2) Chest pain, rule out acute myocardial infarction: Final Diagnosis Final Discharge Diagnosis: chest pain Summary Hospital Course Hospital course: 38M with PMH of HTN, DM, HLD, CAD s/p stenting, HF, ESRD on HD, GERD, anxiety who presented with chest pain to [facility] () ER and transferred for the evaluation [...] two drug-eluting stents . Pt transferred to [facility] as chest pain did not resolve despite flat troponin elevation. Pt chest pain had resolved upon arrival to [facility] and repeat troponin here was less than at [place]. Cardiology cleared pt for discharge and made [...] UNITS SUBCUTANEOUSLY ONCE A DAY Follow Up: [facility] [Outside] (Please call to schedule an appointment.) Eusebio Olivares DO [Primary Care Provider] - (His office is currently closed. Please call to schedule a post hospital appointment.) Documented By: Jorge Mederos DO 08/18/23 132 8 Signed By: <Electronically signed by Jorge Mederos DO> 08/18/23 1330 [facility] Work Phone: Evaluation + Plan noteExecutive [facility] evaluuygwt noteNo InformationNort [employer] Other evaluation noteNo assessment information available [facility] Work Phone: evaluation note* Diagnosis Onset Date Resolution Status MGUS (monoclonal gammopathy of unknown significance) acute [facility] Work Phone: evaluation note* Diagnosis Onset Date Resolution Status MGUS (monoclonal gammopathy of unknown significance) acute Acute congestive heart failure acute PINO (acute kidney injury) [place] Anemia acute CAD (coronary artery disease) acute Chest pain acute Chronic kidney disease, stage IV (severe) acute CKD (chronic kidney disease) acute Diabetes acute HTN (hypertension) acute Syncope acute Uncontrolled hypertension [place] [facility] Work Phone: evaluation note* Diagnosis Onset Date Resolution Status Acute congestive heart failure acute PINO (acute kidney injury) [place] Anemia acute CAD (coronary artery disease) acute Chest pain acute Chronic kidney disease, stage IV (severe) acute CKD (chronic kidney disease) acute Diabetes acute HTN (hypertension) acute Syncope acute Uncontrolled hypertension [place] MGUS (monoclonal gammopathy of unknown significance) acute [facility] Work Phone: evalujeahj note* Diagnosis Screening for genitourinary condition Screening for other and unspecified genitourinary condition [facility] Diagnosis Onset Date Resolution Status Acute congestive heart failure acute PINO (acute kidney injury) [place] Anemia acute CAD (coronary artery disease) acute Chest pain acute Chronic kidney disease, stage IV (severe) acute CKD (chronic kidney disease) acute Diabetes acute HTN (hypertension) acute Syncope acute Uncontrolled hypertension [place] MGUS (monoclonal gammopathy of unknown significance) acute Stage 3b chronic kidney disease (CKD) acute [facility] Work Phone: evaluanefq note* Diagnosis Onset Date Resolution Status Acute congestive heart failure acute PINO (acute kidney injury) [place] Anemia acute CAD (coronary artery disease) acute Chest pain acute Chronic kidney disease, stage IV (severe) acute CKD (chronic kidney disease) acute Diabetes acute HTN (hypertension) acute Syncope acute Uncontrolled hypertension [place] MGUS (monoclonal gammopathy of unknown significance) acute Stage 3b chronic kidney disease (CKD) acute Chest pain acute Diabetes acute [facility] Work Phone: Evaluation note* Diagnosis Onset Date Resolution Status Acute congestive heart failure acute PINO (acute kidney injury) [place] Anemia acute CAD (coronary artery disease) acute Chest pain acute Chronic kidney disease, stage IV (severe) acute CKD (chronic kidney disease) acute Diabetes acute HTN (hypertension) acute Syncope acute Uncontrolled hypertension [place] MGUS (monoclonal gammopathy of unknown significance) acute Stage 3b chronic kidney disease (CKD) acute Anemia acute Chest pain acute CKD (chronic kidney disease) acute Diabetes acute Triple vessel disease of the heart [facility] Work Phone: Evaluation note* Diagnosis Onset Date Resolution Status MGUS (monoclonal gammopathy of unknown significance) acute Stage 3b chronic kidney disease (CKD) acute Anemia acute Chest pain acute CKD (chronic kidney disease) acute Diabetes acute Triple vessel disease of the heart [facility] Work Phone: evaluation note* Diagnosis Onset Date Resolution Status Anemia acute Chest pain acute CKD (chronic kidney disease) acute Diabetes acute Triple vessel disease of the heart [facility] Work Phone: Evaluation note* Diagnosis Onset Date Resolution Status Anemia acute CAD (coronary artery disease) acute Chest pain acute Chronic kidney disease, stage IV (severe) acute Diabetes acute GERD (gastroesophageal reflux disease) acute History of placement of stent in LAD coronary artery acute Hypertension acute Kidney failure [facility] Work Phone: evaluation note* Diagnosis Onset Date Resolution Status Anemia acute CAD (coronary artery disease) acute Chest pain acute Chronic kidney disease, stage IV (severe) acute Diabetes acute GERD (gastroesophageal reflux disease) acute History of placement of stent in LAD coronary artery acute Hypertension acute Kidney failure acute MGUS (monoclonal gammopathy of unknown significance) acute Stage 3b chronic kidney disease (CKD) [facility] Work Phone: Evaluation noteNort [employer] Other evaluation note* Diagnosis Onset Date Resolution Status MGUS (monoclonal gammopathy of unknown significance) acute Stage 3b chronic kidney disease (CKD) acute [facility] Work Phone: Evaluation note* Diagnosis Onset Date Resolution Status CAD (coronary artery disease) acute Chest pain, rule out acute myocardial infarction acute Diabetes mellitus acute ESRD (end stage renal disease) on dialysis acute [facility] Work Phone: evaluation note* Diagnosis Onset Date Resolution Status Chest pain, rule out acute myocardial infarction resolved [facility] Work Phone: evaluation note* Diagnosis Left shoulder pain, unspecified chronicity- [...] & vomiting acute AV fistula stenosis acute [facility] Work Phone: evaluation note* Diagnosis Onset Date [...] Type 1 diabetes mellitus with hyperglycemia acute [facility] Work Phone: evaluation note* Diagnosis Onset Date [...] Type 1 diabetes mellitus with hyperglycemia acute [facility] Work Phone: evaluation note* Diagnosis ASHD (arteriosclerotic heart disease) Coronary atherosclerosis of unspecified type of vessel, [place] or graft Essential hypertension, benign Mixed hyperlipidemia History of WV (myocardial infarction) Old myocardial infarction Status post insertion of drug eluting coronary artery stent ESRD (end stage renal disease) on dialysis (Multi) End stage renal disease Current every day smoker Type 2 diabetes mellitus with chronic kidney disease on chronic dialysis, with long-term current use of insulin (Multi) BMI 22.0-22.9, adult documented in this encounter [facility] Work Phone: Evaluation note* Diagnosis Onset Date Resolution Status Encounter for palliative care acute MGUS (monoclonal gammopathy of unknown significance) acute AV fistula stenosis acute Acute exacerbation of chroni c obstructive airways disease acute ASHD (arteriosclerotic heart disease) acute ESRD (end stage renal disease) on dialysis acute Primary hypertension acute Type 1 diabetes mellitus with hyperglycemia acute AV fistula acute [facility] Work Phone: Evaluation note* Diagnosis Onset Date Resolution Status AV fistula acute Acute hypoxic respiratory failure acute AV fistula acute ESRD (end stage renal disease) on dialysis acute HCAP (healthcare-associated pneumonia) acute Type 1 diabetes mellitus with hyperglycemia acute [facility] Work Phone: Evaluation note* Diagnosis Onset Date Resolution Status AV fistula acute Acute exacerbation of chroni c obstructive airways disease acute Acute hypoxic respiratory failure acute Anemia in chronic kidney disease acute AV fistula acute ESRD (end stage renal disease) on dialysis acute HCAP (healthcare-associated pneumonia) acute Hypertensive CKD, ESRD on dialysis acute Secondary hyperparathyroidism acute Type 1 diabetes mellitus with hyperglycemia acute [facility] Work Phone: Evaluation note* Diagnosis Onset Date Resolution Status AV fistula acute Acute exacerbation of chroni c obstructive airways disease acute Acute hypoxic respiratory failure acute Anemia in chronic kidney disease acute AV fistula acute ESRD (end stage renal disease) on dialysis acute HCAP (healthcare-associated pneumonia) acute Hypertensive CKD, ESRD on dialysis acute Secondary hyperparathyroidism acute Type 1 diabetes mellitus with hyperglycemia acute Acute bronchitis acute Hypoxemia acute [facility] Work Phone: Evaluation note* Diagnosis Onset Date Resolution Status AV fistula acute Acute exacerbation of chroni c obstructive airways disease acute Anemia in chronic kidney disease acute AV fistula acute ESRD (end stage renal disease) on dialysis acute HCAP (healthcare-associated pneumonia) acute Hypertensive CKD, ESRD on dialysis acute Secondary hyperparathyroidism acute Type 1 diabetes mellitus with hyperglycemia acute Acute hypoxic respiratory failure resolved Acute bronchitis acute Acute metabolic encephalopathy acute Acute on chronic diastolic heart failure acute Anemia in chronic kidney disease acute ESRD (end stage renal disease) on dialysis acute Hyperkalemia acute Hyperosmolar hyperglycemic state (HHS) acute Hypertensive CKD, ESRD on dialysis acute Hypoxemia acute Secondary hyperparathyroidism acute Type 1 diabetes mellitus with hyperglycemia acute Acute hypoxic respiratory failure resolved [facility] Work Phone: Evaluation note* Diagnosis Onset Date Resolution Status AV fistula acute Acute exacerbation of chroni c obstructive airways disease acute AV fistula acute HCAP (healthcare-associated pneumonia) acute Acute hypoxic respiratory failure resolved Encephalopathy acute End-stage renal disease (ESRD) acute Hyperglycemia acute Acute bronchitis resolved Acute hypoxic respiratory failure resolved Acute metabolic encephalopathy resolved Acute on chronic diastolic heart failure resolved Hyperkalemia resolved Hyperosmolar hyperglycemic state (HHS) resolved Hypoxemia resolved Acute exacerbation of chroni c obstructive airways disease acute ASHD (arteriosclerotic heart disease) acute Primary hypertension acute [facility] Work Phone: Evaluation note* Diagnosis Onset Date Resolution Status Acute exacerbation of chroni c obstructive airways disease acute AV fistula acute HCAP (healthcare-associated pneumonia) acute Acute hypoxic respiratory failure resolved Encephalopathy acute End-stage renal disease (ESRD) acute Hyperglycemia acute Acute bronchitis resolved Acute hypoxic respiratory failure resolved Acute metabolic encephalopathy resolved Acute on chronic diastolic heart failure resolved Hyperkalemia resolved Hyperosmolar hyperglycemic state (HHS) resolved Hypoxemia resolved Acute exacerbation of chroni c obstructive airways disease acute ASHD (arteriosclerotic heart disease) acute Nicotine addiction acute Primary hypertension acute ASHD (arteriosclerotic heart disease) acute Nicotine addiction acute Primary hypertension acute [facility] Work Phone: Evaluation note* Diagnosis Type 2 diabetes mellitus without complication, with long-term current use of insulin ([facility])- Primary Pain due to onychomycosis of toenails of both feet Hav (hallux abducto valgus), left [facility] Diagnosis ASHD (arteriosclerotic heart disease) Coronary atherosclerosis of unspecified type of vessel, [place] or graft Congestive heart failure, unspecified HF chronicity, unspecified heart failure type Essential hypertension, benign History of WV (myocardial infarction) Old myocardial infarction Mixed hyperlipidemia Status post insertion of drug eluting coronary artery stent ESRD (end stage renal disease) on dialysis (Multi) End stage renal disease Type 2 diabetes mellitus with chronic kidney disease on chronic dialysis, with long-term current use of insulin ([facility]) BMI 21.0-21.9, adult Current every day smoker documented in this encounter [facility] Work Phone: Evaluation note* Diagnosis ASHD (arteriosclerotic heart disease) Coronary atherosclerosis of unspecified type of vessel, [place] or graft History of WV (myocardial infarction) Old myocardial infarction Status post insertion of drug eluting coronary artery stent Aortic valve disorder Aortic valve disorders ESRD (end stage renal disease) on dialysis (Multi) End stage renal disease Vapes nicotine containing substance documented in this encounter [facility] Work Phone: Evaluation note* Diagnosis Type 2 diabetes mellitus without complication, with long-term current use of insulin- Primary Pain due to onychomycosis of toenails of both feet Hav (hallux abducto valgus), left documented [facility] this [facility] Author Isidoro Mesa [facility] August 13, 2022 4:55am Note Date/Time August 13, 2022 4:18am [facility] [address] [place] [address] Hospitalist H&P Signed Patient: Yoel Werner MR#: [id number] : 1985 Acct:[id number] Age/Sex: 37 / M Adm Date: 2 Loc: Room: [address] [place] [address] Type: ADM INOo Attending Dr: Isidoro Mesa DO Copies to: DO Isidoro Leblanc, ~ HPI DATE OF EXAMINATION: 08/13/22 CHIEF COMPLAINT: [...] % (Auto) 29.2 % (.) 08/12/22 23:58 Pershing % (Auto) 8.9 % (.) 08/12/22 23:58 Eos % (Auto) 2.7 % (.) 08/12/22 23:58 Baso % (Auto) 1.5 % (.) 08/12/22 23:58 Nucleat RBC Rel Count 0.1 /100 WBC (0-0.5) 08/12/22 23:58 Neut # (Auto) 3.1 x10E3/uL (1.8-7.7) 08/12/22 23:58 Lymph # (Auto) 1.6 x10E3/uL (1.00-4.8) 08/12/22 23:58 Pershing # (Auto) 0.5 x10E3/uL (0.0-0.8) 08/12/22 23:58 [...] pH 5.5 (5.0-9.0) 08/13/22 00:49 Ur Specific [place] 1.011 (1.001-1.030) 08/13/22 00:49 Urine Protein 300 [...] signed by Isidoro Mesa DO> 08/13/22 0455 [facility] Work Phone: History and physical note Author Isidoro Mesa [facility] March 01, 2024 6:46am Note Date/Time March 01, 2024 6:32 am [facility] [address] [place] [address] Hospitalist H&P Signed Patient: Yoel Werner MR#: [id number] : 1985 Acct:[id number] Age/Sex: 38 / M Adm Date: 4 Loc: Room: [address] [place] [address] Type: ADM IN Attending Dr: Isidoro Mesa DO Copies to: DO Isidoro Leblanc DO~ HPI DATE OF EXAMINATION: 03/01/24 CHIEF COMPLAINT: shortness of breath HISTORY OF PRESENT ILLNESS: Mr Werner is a 38-year-old male with a past medical history Of diabetes, ESRDon dialysis Saturday, hypertension CHF, and MGUS who presents to hospital with a chief complaint of shortness of breath and a cough. Patient states he has been coughing for the last 3 months, he occasionally coughs up clear sputum, denies any green-black or red sputum. He states his coughing and shortness of breath have been getting worse lately on this 3-month period, he did go [facility] was diagnosed with bronchitis, received a DuoNeb treatment and was discharged. He was feeling better shortly after discharge however today he felt nauseous for roughly 45 minutes and had numerousepisodes of vomiting so he came back to the hospital for further evaluation and treatment. In emergency room he was found to be hypoxic, desaturating down to 89% on room air however he was refusing supplemental oxygen. At time my exam the patient is quite sleepy as it was 5 in the morning, he did have a few episodes of coughing but there is no sputum. He denies any further issues such as chest pain, constipation or diarrhea but says he still is little bit nauseoushowever it was relieved from Zofran he received emergency room. His last dialysis session was on Saturday, he says his dry weight is 71.5 kg and he had a full session on Saturday removed and then usual amount of fluid. Review of Systems Review of Systems All other systems reviewed & are negative unless noted below or in HPI [facility] Medical History Cataract Acute exacerbation of chronic obstructive airways disease ESRD (end stage renal disease) on dialysis ASHD (arteriosclerotic heart disease) Secondary hyperparathyroidism Primary hypertension Peyronie's disease Erectile dysfunction due to arterial insufficiency Chronic venous insufficiency Anemia in chronic kidney disease Anasarca Acute combined systolic and diastolic heart failure Heart attack CAD (coronary artery disease) Diabetes mellitus Depression AV fistula Smoker Asthmatic bronchitis , chronic PTSD (post-traumatic stress disorder) Anxiety MGUS (monoclonal gammopathy of unknown significance) History of blood transfusion Diabetic retinopathy History of myocardial infarction Hypercholesterolemia COVID Surgical History H/O heart artery stent History of bone marrow biopsy H/O eye surgery Hx of knee surgery Hx of vasectomy Family History Mother Liver disease Diabetes Pancreatic cancer Father Diverticulitis Hypertension IBS (irritable bowel syndrome) Stroke Heart disease History of stroke Family history of mental disorder Social History Smoking Status: Never smoker Tobacco Type: cigarettes Substance Use Type: Marijuana Substance Abuse Comment: Has not used in a few months ; Medical card that in Sep 2023 Social History Comments: lives with dad Meds Medications and Allergies Allergies No Known Allergies Allergy (Verified 03/01/24 02:53) Home Medications famotidine 20 mg tablet 40 mg PO QHS 11/13/21 [History Confirmed 01/09/24] atorvastatin 80 mg tablet 80 mg PO QPM 30 days #30 tabs 11/17/21 [Rx Confirmed 01/09/24] nitroglycerin 0.4 mg sublingual tablet 0.4 mg sublingual Q5MIN.X3 PRN Chest Pain30 days #25 tabs 11/17/21 [Rx Confirmed 01/09/24] omeprazole 40 mg capsule,delayed release 40 mg PO QAM 05/09/22 [History Confirmed 01/09/24] aspirin 81 mg chewable tablet (Children's Aspirin) 81 mg PO QAM 09/10/22 [History Confirmed 01/09/24] clopidogrel 75 mg tablet (Plavix) 75 mg PO QAM 09/10/22 [History Confirmed 01/09/24] furosemide 40 mg tablet 40 mg PO QAM 09/10/22 [History Confirmed 01/09/24] isosorbide mononitrate 60 mg tablet,extended release 24 hr 60 mg PO QHS 11/12/22[History Confirmed 01/09/24] carvedilol 25 mg tablet (Coreg) 25 mg PO BID #60 tabs 01/09/23 [Rx Confirmed 01/09/24] amlodipine 2.5 mg tablet 2.5 mg PO DAILY #30 tabs 08/18/23 [Rx Confirmed 01/09/24] oxycodone 5 mg tablet 5 mg PO BID PRN pain 10 days #20 tabs 10/17/23 [Rx Confirmed 01/09/24] calcium acetate 667 mg tablet 1,334 mg PO TID 11/13/23 [History Confirmed 01/09/24] insulin lispro 100 unit/mL subcutaneous pen (Humalog KwikPen (U-100) Insulin) 1 sliding scale dose subcut USEASDIRECTD 11/13/23 [History Confirmed 01/09/24] albuterol sulfate 90 mcg/actuation aerosol inhaler 2 puff inhalation Q6HR PRN bronchospasm 30 days #8.5 grams 11/14/23 [Rx Confirmed 01/09/24] insulin glargine 100 unit/mL subcutaneous solution (Lantus U-100 Insulin) 15 unit subcut DAILY 11/26/23 [History Confirmed 01/09/24] hydralazine 50 mg tablet 50 mg PO TID 30 days #90 tabs 02/04/24 [Rx] loratadine 10 mg tablet See Rx Instructions .Route .COMPLEX #45 tabs 02/13/24 [Rx] sertraline 100 mg tablet See Rx Instructions .Route .COMPLEX #90 tabs 02/18/24 [Rx] Exam Physical Exam Vital Signs: Temp Pulse Resp BP Pulse Ox O2 Del Method 98.5 F 65 20 186/88 H 91 L Room Air 03/01/24 02:40 03/01/24 05:31 03/01/24 03:34 03/01/24 02:40 03/01/24 03:34 03/01/24 03:34 Narrative: General: Awake alert, no acute distress, sleepy HEENT: head atraumatic, normocephalic, moist mucous membranes Neck: supple no masses, no lymphadenopathy CVS: regular rate and rhythm, no murmurs or gallops Respiratory: Very rhonchorous and bilateral wheezes noted GI: soft, nondistended, nontender, positive bowel sounds with no organomegaly Extremity: moves all extremities, no restrictions of movements, no calf tenderness, no edema, left AV fistula has palpable thrill and bruit. Neuro: AOx3, CN II-VII intact. Moves all extremities in all planes of motion. Skin: dry, intact no rashes or lesions Results - Hospitalist H&P Lab Results Labs: Laboratory Last Values Corrected WBC 10.2 X10E3/uL (4.1-10.5) 03/01/24 02:55 Uncorrected WBC Count 10.2 x10E3/uL (4.1-10.5) 03/01/24 02:55 RBC 3.25 X10E6/uL (3.90-5.60) L 03/01/24 02:55 Hgb 10.0 g/dL (13.0-17.0) L 03/01/24 02:55 Hct 29.5 % (38.8-50.0) L 03/01/24 02:55 MCV 90.7 fl (83.5-101) 03/01/24 02:55 MCH 30.7 pg (27.5-35.2) 03/01/24 02:55 MCHC 33.9 g/dL (32.5-35.6) 03/01/24 02:55 RDW 14.9 % (12.0-14.8) H 03/01/24 02:55 Plt Count 141 x10E3/uL (150-450) L 03/01/24 02:55 MPV 8.9 fl (6.6-10.1) 03/01/24 02:55 Neut % (Auto) 85.6 % (.) 03/01/24 02:55 Lymph % (Auto) 8.0 % (.) 03/01/24 02:55 Pershing % (Auto) 5.4 % (.) 03/01/24 02:55 Eos % (Auto) 0.2 % (.) 03/01/24 02:55 Baso % (Auto) 0.8 % (.) 03/01/24 02:55 Nucleat RBC Rel Count 0.0 /100 WBC (0-0.5) 03/01/24 02:55 Neut # (Auto) 8.8 x10E3/uL (1.8-7.7) H 03/01/24 02:55 Lymph # (Auto) 0.8 x10E3/uL (1.00-4.8) L 03/01/24 02:55 Pershing # (Auto) 0.5 x10E3/uL (0.0-0.8) 03/01/24 02:55 Eos # (Auto) 0.0 x10E3/uL (0.0-0.45) 03/01/24 02:55 Baso # (Auto) 0.1 x10E3/uL (0.0-0.2) 03/01/24 02:55 Monocyte Dist Width 14.33 % (0.00-20.00) 03/01/24 02:55 PT 13.1 Seconds (9.0-12.9) H 03/01/24 02:55 INR 1.1 03/01/24 02:55 APTT 35.7 Seconds (25.1-36.5) 03/01/24 02:55 PHA Creatinine Clear 13.51 03/01/24 02:55 Sodium 127 mmol/L (136-145) L 03/01/24 02:55 Potassium 5.0 mmol/L (3.5-5.1) 03/01/24 02:55 Chloride 94 mmol/L (98-107) L 03/01/24 02:55 Carbon Dioxide 22.6 mmol/L (21.0-31.0) 03/01/24 02:55 Anion Gap 15.4 mEq/L (6.0-15.0) H 03/01/24 02:55 BUN 69 mg/dL (7-25) H 03/01/24 02:55 Creatinine 7.50 mg/dL (0.70-1.30) H 03/01/24 02:55 Est GFR (CKD-EPI) 8.804 mL/Min 03/01/24 02:55 Glucose 477 mg/dL (70-100) H 03/01/24 02:55 Lactic Acid 0.6 mmol/L (0.5-2.2) 03/01/24 04:15 Calcium 8.9 mg/dL (8.6-10.3) 03/01/24 02:55 Total Creatine Kinase 181 U/L (30-223) 03/01/24 02:55 Troponin I High Sens 36.3 pg/mL (0.0-20.0) H 03/01/24 02:55 B-Natriuretic Peptide 2530.0 pg/mL (5-100) H 03/01/24 03:00 SARS-CoV-2 Rap RNA(RT-PCR) Negative (Negative) 03/01/24 03:32 Microbiology Results Micro: Microbiology - Results from entire visit 03/01/24 03:32 Nasopharyngeal SARS-CoV-2, Influenza & RSV (PCR) - Final Assessment & Plan Assessment/Plan (1) Acute hypoxic respiratory failure: Plan: Admit to [facility] floor, inpatient status ? Continue with supplemental oxygen to maintain SpO2 greater 90%, patient was refusing this in the emergency room ? Continue with DuoNebs 4 times daily for acute on chronic bronchitis ? Solu-Medrol 40 every 12 hours ?Antitussives as ordered ? Respiratory PCR ordered and negative (2) ESRD (end stage renal disease) on dialysis: Plan: ? Saturday schedule, nephrology consulted (3) Type 1 diabetes mellitus with hyperglycemia: Plan: ? Continue home medications ? Glucose checks ACHS ? He was hyperglycemic on admission above 400, will receive 10 units of regular insulin and 10 units of aspart upon admission (4) AV fistula: Plan: Appears working properly Plan ? DVT prophylaxis addressed ? Renal diet on dialysis ? Full code IP vs OBS Justification Based on differential dx, clinical care plan, and risk of adverse events, if untreated, in my clinical judgement this patient requires an acute care setting as: INPATIENT because of an expectation of an over 2 midnight stay. Estimated length of stay (# of days): 3 Documented By: Isidoro Mesa DO 03/01/2428 Signed By: <Electronically signed by Isidoro Mesa DO> 03/01/24 0646 [facility] Work Phone: History and physical note Author Judd Jacobs [facility] Note Date/Time November 01, 2024 11: 46pm [facility] [address] [place] [address] Hospitalist H&P Signed Patient: Yoel Werner MR#: [id number] : 1985 Acct:[id number] Age/Sex: 39 / M Adm Date: 5 Loc: Room: [address] [place] [address] Type: ADM INOo Attending Dr: Judd Jacobs MD Copies to: DO Judd Leblanc MD~ HPI DATE OF EXAMINATION: 11/01/24 CHIEF COMPLAINT: nausea/vomiting HISTORY OF PRESENT ILLNESS: 39 year old man with history of DM1, HTN, CAD, chronic diastolic CHF, ESRD on HDMWF presenting with nausea vomiting and generalized weakness Note pt was seen in the ED on 10/30 for hypoglycemia- he missed his dialysis session as a result. upon discharge, pt was tired and missed the rescheduled session as well pt has had nausea vomiting headache and generalized weakness this weekend- he recognizes these symptoms as those he gets when he misses dialysis Pt presented to the ED for evaluation, vital signs on arrival WNL except for a BP of 175/86. labs notable for K of 6.4 - given insulin D50 and calcium gluconate. Pt is admitted for further evaluation and mgmt ROS: 10 systems reviewed and were negative except as noted in the HPI Assessment and Plan: ESRD on HD missed hemodialysis hyperkalemia- K 6.4, no associated hyperkalemic ECG changes admit to medicine monitor on telemetry given appropriate hyperkalemia cocktail in ED nephrology consult entered plan for hemodialysis in am DM1- continue long acting insulin at home dose, accucheck ac/hs, SSI, hypoglycemia protocol HTN- continue home anithypertensive medications VTE prophyalxis- SCDs FULL CODE [facility] Medical History Contusion of right lower extremity Chronic heart failure with preserved ejection fraction (HFpEF) Type 1 diabetes mellitus with hyperglycemia Mitral regurgitation Wellness examination Hypertensive CKD, ESRD on dialysis Secondary hyperparathyroidism Dependence on renal dialysis Sat-Sat-Sat EBENEZER (generalized anxiety disorder) Mixed hyperlipidemia Monoclonal (M) protein disease, multiple 'M' protein Insomnia Cataract left eye-removed ASHD (arteriosclerotic heart disease) Echo: LVEF 60%, LVH, normal RV function but enlarged, RVSP elevated, severe MR - 08/2024, LHC x 5, PCI/stent prox LAD x 3 - October 2022 - residual disease in LCx and RCA not able to treat surgically, PCI/stent RCA x 2 - January 2023, No intervention - 02/2024 Primary hypertension Peyronie's disease Erectile dysfunction due to arterial insufficiency Chronic venous insufficiency Anemia in chronic kidney disease CAD (coronary artery disease) Diabetes mellitus Depression AV fistula left arm Asthmatic bronchitis , chronic PTSD (post-traumatic stress disorder) MGUS (monoclonal gammopathy of unknown significance) History of blood transfusion 2020 Diabetic retinopathy History of myocardial infarction 2021 Surgical History H/O heart artery stent (~02/2024) x5, PCI/stent prox LAD x 3 - October 2022 - residual disease in LCx and RCA not able to treat surgically, PCI/stent RCA x 2 - January 2023, No intervention - 02/2024 History of bone marrow biopsy H/O eye surgery right and left repair retina Hx of knee surgery scope at age 17 Hx of vasectomy 7yrs ago Family History Mother Liver disease Diabetes Pancreatic cancer Father Diverticulitis Hypertension IBS (irritable bowel syndrome) Stroke Heart disease History of stroke Family history of mental disorder Social History Smoking Status: Never smoker Tobacco Type: cigarettes Substance Use Type: None Substance Abuse Comment: Has not used in a few months ; Medical card that in Sep 2023 Social History Comments: lives with dad Meds Medications and Allergies Allergies ticagrelor (From Brilinta) Allergy (Verified 11/01/24 20:26) shortness of breath Home Medications nitroglycerin 0.4 mg sublingual tablet 0.4 mg sublingual Q5MIN.X3 PRN Chest Pain30 days #25 tabs 11/17/21 [Rx Confirmed 11/01/24] aspirin 81 mg chewable tablet (Children's Aspirin) 81 mg PO QAM 09/10/22 [History Confirmed 11/01/24] isosorbide mononitrate 60 mg tablet,extended release 24 hr 60 mg PO BID 11/12/22[History Confirmed 11/01/24] calcium acetate 667 mg tablet 1,334 mg PO TID 11/13/23 [History Confirmed 11/01/24] 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 meter,continuous (FreeStyle Ramy 3 [place]) #1 ea 03/19/24 [Rx Confirmed 11/01/24] omeprazole 40 mg capsule,delayed release See Rx Instructions .Route .COMPLEX #90caps 04/21/24 [Rx Confirmed 11/01/24] 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 sensor (FreeStyle Ramy 3 Plus Sensor device) #1 ea 05/17/24 [Rx Confirmed 11/01/24] famotidine 20 mg tablet 40 mg PO QPM 06/22/24 [History Confirmed 11/01/24] carvedilol 25 mg tablet See Rx Instructions .Route .COMPLEX #180 tabs 07/21/24 [Rx Confirmed 11/01/24] sertraline 100 mg tablet See Rx Instructions .Route .COMPLEX #90 tabs 07/21/24 [Rx Confirmed 11/01/24] hydralazine 100 mg tablet 100 mg PO BID 30 days #60 tabs 08/07/24 [Rx Confirmed 11/01/24] clopidogrel 75 mg tablet (Plavix) 75 mg PO DAILY 08/28/24 [History Confirmed 11/01/24] furosemide 80 mg tablet (Lasix) 80 mg PO BID@0800,1600 30 days #60 tabs 08/29/24[Rx Confirmed 11/01/24] acetaminophen 500 mg tablet 1,000 mg (2 x 500 mg) PO TID PRN pain 15 days #90 tabs 09/02/24 [Rx Confirmed 11/01/24] atorvastatin 80 mg tablet 80 mg PO QAM 09/16/24 [History Confirmed 11/01/24] blood sugar diagnostic (Accu-Chek Guide test strips) #100 ea 10/14/24 [Rx Confirmed 11/01/24] 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 meter (Accu-Chek Guide Glucose Meter) #1 ea 10/14/24 [Rx Confirmed 11/01/24] insulin lispro 100 unit/mL subcutaneous pen (Humalog KwikPen (U-100) Insulin) See Protocol subcut USEASDIRECTD 10/14/24 [History Confirmed 11/01/24] lisinopril 20 mg tablet See Rx Instructions .Route .COMPLEX #30 tabs 10/18/24 [Rx Confirmed 11/01/24] hydroxyzine HCl 25 mg tablet 25 mg PO QPM 10/30/24 [History Confirmed 11/01/24] insulin glargine 100 unit/mL (3 mL) subcutaneous pen (Lantus Solostar U-100 Insulin) 20 unit subcut QHS 10/30/24 [History Confirmed 11/01/24] amlodipine 5 mg tablet 5 mg PO DAILY 11/01/24 [History Confirmed 11/01/24] furosemide 40 mg tablet 80 mg PO DAILY 11/01/24 [History Confirmed 11/01/24] Exam Physical Exam Vital Signs: Temp Pulse Resp BP Pulse Ox O2 Del Method 97.8 F 71 13 179/85 H 98 Room Air 11/01/24 20:27 11/01/24 23:28 11/01/24 22:26 11/01/24 23:28 11/01/24 22:26 11/01/24 22:26 Const General: cooperative, no acute distress and well developed HEENT Head: normal to inspection Ears: external ears normal Nose: external nose normal Face and sinus: normal facial exam Mouth: oral mucosae normal Throat: posterior oropharynx normal Eyes General: appearance normal, both eyes and all related structures Visual Cavanaugh: normal visual cavanaugh by confrontation Sclera: sclerae normal Pupils: PERRL and accommodation normal Neck Neck: normal visual inspection, no lymphadenopathy and supple Thyroid: thyroid normal Lymphatic: no lymphadenopathy noted Chest Chest palpation & inspection: normal inspection of the chest Resp Effort & Inspection: normal respiratory effort, able to speak in complete sentences and symmetric chest movement Auscultation: clear to auscultation bilaterally Cardio Palpation: normal PMI Rate: regular rate Rhythm: regular rhythm Heart Sounds: S1 normal, S2 normal and murmur (3/6 systolic murmur heard throughout the precordium) GI Inspection: normal to inspection Palpation: soft Auscultation: normal bowel sounds General: bladder normal to palpation Musc Cervical Spine: cervical ROM normal Thoracic/Lumbar Spine: thoracic and lumbar spine normal to inspection Skin General: no rashes or lesions noted and turgor normal Neuro General: patient alert, patient awake and patient oriented x3 Speech: speech normal Extrem General: normal to inspection and full ROM Psych Appearance: grossly normal Mental Status: mental status grossly normal Affect: normal affect Speech and Movement: speech and movement normal Attitude: cooperative Results - Hospitalist H&P Lab Results Labs: Laboratory Last Values Corrected WBC 5.9 X10E3/uL (4.1-10.5) 11/01/24 20:49 Uncorrected WBC Count 5.9 x10E3/uL (4.1-10.5) 11/01/24 20:49 RBC 3.68 x10E6/uL (3.90-5.60) L 11/01/24 20:49 Hgb 10.5 g/dL (13.0-17.0) L 11/01/24 20:49 Hct 31.0 % (38.8-50.0) L 11/01/24 20:49 MCV 84.3 fl (83.5-101) 11/01/24 20:49 MCH 28.6 pg (27.5-35.2) 11/01/24 20:49 MCHC 33.9 g/dL (32.5-35.6) 11/01/24 20:49 RDW 15.4 % (12.0-14.8) H 11/01/24 20:49 Plt Count 142 x10E3/uL (150-450) L 11/01/24 20:49 MPV 7.3 fl (6.6-10.1) 11/01/24 20:49 Neut % (Auto) 72.4 % (.) 11/01/24 20:49 Lymph % (Auto) 13.5 % (.) 11/01/24 20:49 Pershing % (Auto) 6.3 % (.) 11/01/24 20:49 Eos % (Auto) 5.7 % (.) 11/01/24 20:49 Baso % (Auto) 2.1 % (.) 11/01/24 20:49 Nucleat RBC Rel Count 0.0 /100 WBC (0-0.5) 11/01/24 20:49 Neut # (Auto) 4.3 x10E3/uL (1.8-7.7) 11/01/24 20:49 Lymph # (Auto) 0.8 x10E3/uL (1.00-4.8) L 11/01/24 20:49 Pershing # (Auto) 0.4 x10E3/uL (0.0-0.8) 11/01/24 20:49 Eos # (Auto) 0.3 x10E3/uL (0.0-0.45) 11/01/24 20:49 Baso # (Auto) 0.1 x10E3/uL (0.0-0.2) 11/01/24 20:49 Monocyte Dist Width 17.06 % (0.00-20.00) 11/01/24 20:49 PT 13.5 Seconds (9.0-12.9) H 11/01/24 20:49 INR 1.2 11/01/24 20:49 PHA Creatinine Clear 10.86 11/01/24 20:49 Sodium 133 mmol/L (136-145) L 11/01/24 20:49 Potassium 6.4 mmol/L (3.5-5.1) H* 11/01/24 20:49 Chloride 97 mmol/L (98-107) L 11/01/24 20:49 Carbon Dioxide 19.5 mmol/L (21.0-31.0) L 11/01/24 20:49 Anion Gap 22.9 mEq/L (6.0-15.0) H 11/01/24 20:49 BUN 100 mg/dL (7-25) H 11/01/24 20:49 Creatinine 9.89 mg/dL (0.70-1.30) H 11/01/24 20:49 Est GFR (CKD-EPI) 6.278 mL/Min 11/01/24 20:49 Glucose 127 mg/dL (70-100) H 11/01/24 20:49 POC Glucose 128 mg/dl 11/01/24 20:47 POC Glucose Comment Glu2: cleaned meter 11/01/24 20:47 Lactic Acid 0.5 mmol/L (0.5-1.9) 11/01/24 20:49 Calcium 8.9 mg/dL (8.6-10.3) 11/01/24 20:49 Magnesium 2.8 mg/dL (1.9-2.7) H 11/01/24 20:49 Total Bilirubin 0.7 mg/dl (0.3-1.0) 11/01/24 20:49 AST 24 U/L (13-39) 11/01/24 20:49 ALT 21 U/L (7-52) 11/01/24 20:49 Alkaline Phosphatase 55 U/L (34-104) 11/01/24 20:49 Total Creatine Kinase 226 U/L (30-223) H 11/01/24 20:49 Troponin I High Sens 62 ng/L (0-20) H* 11/01/24 20:49 B-Natriuretic Peptide 1961.0 pg/mL (5-100) H 11/01/24 20:49 Total Protein 6.9 gm/dL (6.4-8.9) 11/01/24 20:49 Albumin 3.9 gm/dL (3.5-5.7) 11/01/24 20:49 Globulin 3.0 gm/dL 11/01/24 20:49 Albumin/Globulin Ratio 1.3 11/01/24 20:49 Urine Color Light-yellow (Yellow) 11/01/24 21:56 Urine Appearance Clear (Clear) 11/01/24 21:56 Urine pH 7.0 (5.0-9.0) 11/01/24 21:56 Ur Specific Young Harris 1.010 (1.001-1.030) 11/01/24 21:56 Urine Protein 200 mg/dL (Negative) H 11/01/24 21:56 Urine Glucose (UA) 200 mg/dL (Normal) H 11/01/24 21:56 Urine Ketones Negative (Negative) 11/01/24 21:56 Urine Occult Blood 2+ (Negative) H 11/01/24 21:56 Urine Nitrite Negative (Negative) 11/01/24 21:56 Urine Bilirubin Negative (Negative) 11/01/24 21:56 Urine Urobilinogen Normal mg/dL (Normal) 11/01/24 21:56 Ur Leukocyte Esterase Negative (Negative) 11/01/24 21:56 Urine RBC 10-19 /HPF (0-4) H 11/01/24 21:56 Urine WBC 3-4 /HPF (0-4) 11/01/24 21:56 Ur Squamous Epith Cells 1-2 /HPF (0-2) 11/01/24 21:56 Urine Bacteria Rare /HPF (None Seen) 11/01/24 21:56 Hyaline Casts None /LPF (0-8) 11/01/24 21:56 COVID-19 Clin Com Not detected (Not Detecte) 11/01/24 20:49 Microbiology Results Micro: Microbiology - Results from entire visit 11/01/24 20:49 Nasopharyngeal Respiratory Panel (PCR) - Final Assessment & Plan Assessment/Plan (1) Acute hyperkalemia: (2) Missed dialysis: Plan . IP vs OBS Justification Based on differential dx, clinical care plan, and risk of adverse events, if untreated, in my clinical judgement this patient requires an acute care setting as: OBSERVATION because of an expectation of an under 2 midnight stay. Estimated length of stay (# of days): 1 Documented By: Judd Jacobs MD 11/01/24 2337 Signed By: <Electronically signed by Judd Jacobs MD> 11/01/24 2346 [facility] Work Phone: Hisxwjm general Narrative - Reported* Type Description Date Medical History HYPERTENSION Medical History DIABETES MELLITUS TY PE 2 WITH HYPERGLYCEMIAGAD GENERALIZED ANXIETY DISORDER Medical History CHRONIC VENOUS INSUFFICIENCY Surgical History LEFT KNEE SURGERY Surgical History VASECTOMY Surgical History 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 Hospitalization History SEE ABOVE [facility] Other Hisld[facility] general Narrative - Reported* Type Description Date [...] COMBINED SYSTOLIC AND DIASTOLIC HEART FAILURE 11/13/2021 [facility] Other Hisnqhu general Narrative - Reported* Type Description Date [...] COMBINED SYSTOLIC AND DIASTOLIC HEART FAILURE 11/13/2021 [facility] Other history general Narrative - Reported* Type [...] HEART FAILURE 11/13/2021 Hospitalization History SYNCOPE 07/2022 [facility] Other history general Narrative - Reported* Type [...] 07/2022 Hospitalization History MINOR HEART ATTACK 2022 [facility] Other history general Narrative - Reported* Type [...] 07/2022 Hospitalization History MINOR HEART ATTACK 2022 [facility] Other History general Narrative - Reported* Type [...] 07/2022 Hospitalization History MINOR HEART ATTACK 2022 [facility] Other [facility] - [facility] [employer] Other Hisxrhc general Narrative - Reported* Type Description Date [...] ATTACK 2022 Hospitalization History HEART ATTACK 12/2022 [facility] Other History general Narrative - [employer] Other Hisybct general Narrative - Reported* Type Description Date [...] ATTACK 2022 Hospitalization History HEART ATTACK 12/2022 [facility] Other Hisroon general Narrative - Reported* Type Description Date [...] ATTACK 2022 Hospitalization History HEART ATTACK 12/2022 [facility] Other Hospital course Narrative No data available for this section [facility] Hospital Discharge instructions Additional Instructions Continue current meds You may return at any time Follow-up with your private physician [facility] Work Phone: Hospital Discharge instructions Additional Instructions Follow-up with your primary care doctor [facility] if develop [facility] Work [facility]: Hospital Discharge instructions Additional Instructions If your symptoms return/worsen or you develop any further concerns or symptoms please see your doctor or return to the emergency department immediately.[facility] Work Phone: Hospital Discharge instructions Additional Instructions Monitor glucose levels as before.[facility] Work Phone: Hospital Discharge instructions Additional [...] doctor or pharmacist, without first calling the crisis nurse who implanted the stent. If you require [...] weight lifting, stair steppers, etc. until the crisis nurse approves these activities. Check with the crisis nurse on your first follow-up visit. CALL YOUR PHYSICIAN at [phone]: -If bleeding should occur from the catheter insertion site- apply pressure to the site then immediately call us. -Report any fever, redness, drainage, increased swelling, or firmness at the catheter insertion site. Some bruising or slight swelling may be present at the time of discharge. -Should arm or leg become cold, numb, white, or blue, contact the crisis nurse immediately. -IF you should experience episodes of [...] is recommended. Please call Central Scheduling at [phone] to schedule your appointment.] The attending crisis nurse or [facility] nurse clinician should provide you with specific instructions regarding activity, diet, medications, and further follow up for you. Follow the medication instructions provided on your discharge. If the dosages and instructions on this sheet differ from the dosage and instructions on the bottle, follow the instructions on the bottle. [facility] is not responsible for incorrect prescription information provided by the patient during their visit. Do not stop your medications without consulting your health care provider. Please take the list with you to your next doctor's appointment.[facility] Work Phone: Hospital Discharge instructions Additional Instructions Continue Hemodialysis as directed.[facility] Work Phone: Hospital Discharge instructions Additional [...] pain shortness of breath or any other concernsSum[facility] Work Phone: Hospital Discharge instructions Additional Instructions If your symptoms return/worsen or you develop any further concerns or symptoms please see your doctor or return to the emergency department immediately. It is imperative that you go over today's visit and all results with your primary care provider.[facility] Work Phone: Hospital Discharge instructions Additional Instructions DISCHARGE INSTRUCTIONS FOR ANGIOPLASTY/CORONARY/PERIPHERAL/STENT IMPLANT FOR ADULT ANTICOAGULATION -Since the greatest risk of a blood clot forming with the stent occurs in the first 2-3 weeks after implantation, you will need to take anticoagulants for at least 1yr ANTICOAGULATION MEDICATION [INSERT MEDICATION NAME: Aspirin 81mg [...] doctor or pharmacist, without first calling the crisis nurse who implanted the stent. If you require [...] weight lifting, stair steppers, etc. until the crisis nurse approves these activities. Check with the crisis nurse on your first follow-up visit. CALL YOUR ENERGY CONSERVATION REPRESENTATIVE: -If bleeding should occur from the catheter insertion site- apply pressure to the site then immediately call us. -Report any fever, redness, drainage, increased swelling, or firmness at the catheter insertion site. Some bruising or slight swelling may be present at the time of discharge. -Should arm or leg become cold, numb, white, or blue, contact the crisis nurse immediately. -IF you should experience episodes of angina, e.g. chest discomfort, heaviness, tightness, pressure burning with or without radiation to the neck, jaw, arms or back- use 1 Nitrostat tablet under your tongue every 5-10 minutes and up to three tablets. IF NO RELIEF, CALL 911 or GO TO THE NEAREST EMERGENCY ROOM. -Please notify our office if you have recurrent angina. -Cardiac Rehab Education Provided. Participation in the Cardiopulmonary Rehabilitation program is recommended. The attending crisis nurse or a nurse clinician should provide you with specific instructions regarding activity, diet, medications, and further follow up for you. Follow the medication instructions provided on your discharge. If the dosages and instructions on this sheet differ from the dosage and instructions on the bottle, follow the instructions on the bottle. [facility] is not responsible for incorrect prescription information provided by the patient during their visit. Do not stop your medications without consulting your health care provider. Please take the list with you to your next doctor's appointment.[facility] Work Phone: Progress note No data available for this section [facility] Progress note Author Bryce Coy [facility] March 02, 2024 1:36pm Note Date/Time March 02, 2024 1:36 pm [facility] [address] [place] [address] Nephrology Progress Note Signed Patient: Yoel Werner MR#: [id number] : 1985 Acct:[id number] Age/Sex: 38 / M Adm Date: 4 Loc: 4N Room: 5X4271-1 Type: ADM IN Attending Dr: Julio Allen MD Copies to: ~ Date of Service: 03/02/2024 Subjective Subjective Narrative: Mr. Werner is a 58-year-old white male with history of ESRD related to DM2 ondialysis on MWF schedule at [place] dialysis unit. He presented to the hospital with shortness of breath and cough that has been getting worse recently. He reported coughing for the last 3 months that usually clear sputum. No hemoptysis or green sputum. He denies any fever or chills. He was seen at [place] [facility] on 02/28 and was diagnosed with bronchitis and was treated with DuoNeb and was discharged. After initial improvement, patient started to be nauseated and he had numerous episodes of vomiting so he decided to come to the ER. On arrival, patient was hypoxemic with saturation 89% in room air. He did refuse oxygen supplement. Patient was admitted and was started on Zofran, DuoNeb and Solu-Medrol for asthma/COPD exacerbation. He is a chronic smoker. Respiratory panel was negative on admission. Nephrology was consulted for management of dialysis and ESRD Interval history: Patient was seen and examined in the dialysis unit this morning. He reports still having cough but has improvement with breathing treatment. He denies fever, chills, shortness of breath, chest pain. He was 76 kg when within the dialysis unit, 5 kg above her dry weight. Potassium was 5.9 mmol/L, creatinine 8.67 mg/dL, BUN 94 mg/dL. Patient is receiving dialysis today with 4 L ultrafiltration as tolerated Exam Physical Exam Vital Signs: Temp Pulse Resp BP Pulse Ox O2 Del Method 98 F 73 16 132/56 L 98 Room Air 03/02/24 09:03/02/24 11:30 03/02/24 09:25 03/02/24 11:30 03/02/24 09:03/02/24 09:25 Narrative: Constitutional: Appears comfortable, occasional cough. HEENT: He has mild pallor with no jaundice or cyanosis. Cardiovascular: RRR, normal S1-S2, no gallop or rub, No JVD Respiratory: Expanded chest, adequate air entry bilaterally with scattered wheezes. No crackles. Gastrointestinal: Soft, non tender, positive bowel sounds. No palpable organs or masses. Extremities: Trace edema Skin: No rashes or bruises Musculoskeletal: No joints swellings or inflammation Neurology: Awake, alert, oriented ?3, No focal motor or sensory deficits Psych: Normal mood and affect Vascular access: Left arm AV fistula with good blood flow Objective Intake and Output I&O: Intake & Output 02/28/24 02/29/24 03/01/24 03/02/24 23:59 23:59 23:59 23:59 Intake Total 650 / 650 980 / 980 Output Total 500 / 500 Balance 150 / 150 980 / 980 Weight 71.5 kg 80.2 kg Meds and Allergies Meds: Active Medications Acetaminophen (Acetaminophen 325 Mg Tablet) 650 mg PO Q6HR PRN PRN Reason: Pain Scale 1 - 3 or fever Stop: 03/01/25 05:12 Albuterol/Ipratropium (Ipratropium/Albuterol 0.5-3 Mg 3 Ml Ampul.Neb) 3 ml INHALATION QID.RESP RACHELL Stop: 03/01/25 07:59 Last Admin: 03/02/24 10:27 Dose: Not Given Amlodipine Besylate (Amlodipine 2.5 Mg Tablet) 2.5 mg PO DAILY RACHELL Stop: 03/01/25 08:59 Last Admin: 03/02/24 08:30 Dose: 2.5 mg Aspirin (Aspirin 81 Mg Tab.Chew) 81 mg PO QAM [facility] Stop: 03/01/25 08:59 Last Admin: 03/02/24 08:30 Dose: 81 mg Atorvastatin Calcium (Atorvastatin 80 Mg Tablet) 80 mg PO QPM [facility] Stop: 03/01/25 20:59 Last Admin: 03/01/24 21:28 Dose: 80 mg Calcium Acetate (Calcium Acetate 667 Mg Capsule) 1,334 mg PO TID.WITH.MEALS [facility] Stop: 03/01/25 11:59 Last Admin: 03/02/24 08:30 Dose: 1,334 mg Carvedilol (Carvedilol 25 Mg Tablet) 25 mg PO BID [facility] Stop: 03/01/25 08:59 Last Admin: 03/02/24 08:30 Dose: 25 mg Clopidogrel Bisulfate (Clopidogrel Bisulfate 75 Mg Tablet) 75 mg PO QAM [facility] Stop: 03/01/25 08:59 Last Admin: 03/02/24 08:28 Dose: 75 mg Dextrose (Dextrose 50% In Water 25 Gm/50 Ml Syringe) 0 gm IV-PUSH PRN PRN PRN Reason: Hypoglycemia Stop: 03/01/25 06:40 Epoetin Alexus (Epoetin Alexus (Esrd Use) 20,000 Unit/Ml Vial) 8,000 unit IV-PUSH MoWeFr@1000 RACHELL; Protocol Stop: 03/02/25 09:59 Last Admin: 03/02/24 09:57 Dose: 8,000 unit Famotidine (Famotidine 20 Mg Tablet) 20 mg PO Q48H [facility] Stop: 03/01/25 21:59 Last Admin: 03/01/24 21:27 Dose: 20 mg Furosemide (Furosemide 40 Mg Tablet) 40 mg PO BID@0800,1600 [facility] Stop: 03/01/25 15:59 Last Admin: 03/02/24 08:28 Dose: 40 mg Glucose (Dextrose 40% Gel 15 Gm Tube) 0 gm PO PRN PRN PRN Reason: Hypoglycemia Stop: 03/01/25 06:40 Guaifenesin (Guaifenesin 600 Mg Tab.Er.12h) 1,200 mg PO BID [facility] Stop: 03/01/25 08:59 Last Admin: 03/02/24 08:30 Dose: 1,200 mg Heparin Sodium (Porcine) (Heparin 5,000 Unit/Ml Vial) 5,000 unit SUBCUT Q12HR [facility] Stop: 03/01/25 09:44 Last Admin: 03/02/24 08:31 Dose: 5,000 unit Heparin Sodium (Porcine) (Heparin 10,000 Unit/10 Ml Vial) 2,000 unit IV PRN PRN PRN Reason: Dialysis Stop: 03/02/25 09:02 Last Admin: 03/02/24 09:57 Dose: 2,000 unit Hydralazine HCl (Hydralazine 50 Mg Tablet) 50 mg PO TID [facility] Stop: 03/01/25 13:59 Last Admin: 03/02/24 08:30 Dose: 50 mg Hydralazine HCl (Hydralazine 20 Mg/Ml Vial) 10 mg IV-PUSH Q4H PRN PRN Reason: if SBP > 185 Stop: 03/01/25 16:55 Ampicillin Sodium/Sulbactam Sodium (Unasyn) 1.5 gm in 100 mls @ 200 mls/hr IV DAILY@1700 [facility] Last Admin: 03/01/24 13:23 Dose: 200 mls/hr Sodium Chloride (0.9% Sodium Chloride 1,000 Ml) 1,000 mls @ 0 mls/hr MISCELLANE.Q0M PRN PRN Reason: Dialysis Stop: 03/02/25 09:02 Last Infusion: 03/02/24 10:09 Dose: Infused Insulin Aspart (Insulin Aspart 300 Units/3 Ml Insuln.Pen) 0 units SUBCUT ACHS [facility]; Protocol Stop: 03/01/25 10:29 Last Admin: 03/02/24 08:32 Dose: 9 units Insulin Glargine (Insulin Glargine 300 Units/3 Ml Insuln.Pen) 15 units SUBCUT DAILY [facility] Stop: 03/01/25 10:59 Last Admin: 03/02/24 08:31 Dose: 15 units Isosorbide Mononitrate (Isosorbide Mononitrate 24hr Er 60 Mg Tab.Er.24h) 60 mg PO BID [facility] Stop: 03/01/25 20:59 Last Admin: 03/02/24 08:30 Dose: 60 mg Melatonin (Melatonin 5 Mg Tablet) 5 mg PO QHS PRN PRN Reason: Insomnia Stop: 03/01/25 05:12 Morphine Sulfate (Morphine Sulfate 2 Mg/Ml Vial) 2 mg IV-PUSH Q4H PRN PRN Reason: Pain Scale 8 - 10 Nitroglycerin (Nitroglycerin 0.4 Mg Tab.Subl) 0.4 mg SUBLINGUAL Q5MIN.X3 PRN PRN Reason: Chest Pain Stop: 03/01/25 06:37 Ondansetron HCl (Ondansetron 4 Mg/2 Ml Vial) 4 mg IV-PUSH Q8H PRN PRN Reason: Nausea And Vomiting Stop: 03/01/25 05:12 Pantoprazole Sodium (Pantoprazole 40 Mg Tablet.Dr) 40 mg PO BID.AC.BKFAST.SUPPER [facility] Stop: 03/01/25 07:29 Last Admin: 03/02/24 08:30 Dose: 40 mg Paricalcitol (Paricalcitol 10 Mcg/2 Ml Vial) 2 mcg IV-PUSH MoWeFr@1000 [facility] Stop: 03/02/25 09:59 Last Admin: 03/02/24 09:58 Dose: 2 mcg Sertraline HCl (Sertraline 100 Mg Tablet) 100 mg PO HS [facility] Stop: 03/01/25 08:59 Last Admin: 03/01/24 21:28 Dose: 100 mg Sodium Chloride (Sodium Chloride 0.9 % 10 Ml Syringe) 0 ml IV-PUSH PRN PRN PRN Reason: Flush Stop: 03/01/25 02:52 Last Admin: 03/01/24 04:09 Dose: 10 ml Sodium Chloride (Sodium Chloride 0.9 % 10 Ml Syringe) 0 ml IV-PUSH PRN PRN PRN Reason: Flush Stop: 03/02/25 09:02 Last Admin: 03/02/24 09:57 Dose: 10 ml Allergies No Known Allergies Allergy (Verified 03/01/24 02:53) Results - Nephrology Labs 03/02/24 05:54 03/02/24 05:54 Labs: 03/02/24 05:54 BUN 94 H Creatinine 8.67 H D Radiology Impressions Impressions - last 24 hours: Impressions Chest X-Ray 03/01/24 02:55 IMPRESSION: Findings suggest interval development of cardiomegaly with pulmonary edema. Bilateral pneumonia is not excluded however. Impression dictated by: Trenton Salinas M.D.03/01/2024 2:58 PM Dictation Location: [place] [address] Any impression(s) listed above is documentation that was entered by the reading physician into a diagnostic report(s) for Yoel Werner. I have reviewed the report(s) and am incorporating any findings in the treatment plan of this patient where applicable. A&P - Nephrology Assessment/Plan (1) ESRD (end stage renal disease) on dialysis: Plan: Patient has ESRD related to DM and atherosclerotic renovascular disease on hemodialysis in February 2023 at [place] [facility] unit on MWF schedule (2) Acute hypoxic respiratory failure: Plan: Patient has hypoxemic respiratory failure on admission seems related to COPD exacerbation. Has trace edema and hypertension. He is above his dry weight andwill do ultrafiltration 4 L today t (3) Type 1 diabetes mellitus with hyperglycemia: Plan: Type 1 diabetes currently with hyperglycemia. The patient is on steroids. (4) Acute exacerbation of chronic obstructive airways disease: Plan: Patient has chronic bronchitis/chronic obstructive pulmonary disease exacerbation related to smoking (5) Hypertensive CKD, ESRD on dialysis: Plan: Patient has elevated blood pressure that is quite variable during hospital stay. Blood pressure has been exacerbated by persistent cough. He is on low-dose amlodipine and furosemide. (6) Anemia in chronic kidney disease: Plan: Patient has anemia in setting of chronic kidney disease, in addition he has reported MGUS (7) Secondary hyperparathyroidism: Plan: Patient is secondary hyperparathyroidism secondary to ESRD. He is on [employer] asoutpatient Plan * Patient to receive hemodialysis today. Weight today showed that the patient at least 4 to 5 kg above estimated dry weight. Chest x-ray showed pulmonary congestion. 4 L ultrafiltration will be done today. Patient will get 210 minutes hemodialysis with 2K bath * Continue Procrit 80,000 unit 3 times a week with dialysis for anemia. * Continues in bladder 2 mcg 3 weeks with dialysis * Diabetes is still out of control. Patient was on steroids. Patient stated that diabetes is out of control at home as well. He follow-up with Dr. Stiles. Last time he saw him about 6 months ago. He was advised to arrange appointment soon. He is interested to try ramy device to check his blood glucose more often. * Blood pressure is elevated in the setting of fluid overload, chronic cough and anxiety. Furosemide was increased to 40 mg twice a day. Ultrafiltration today as stated above. Will increase amlodipine if blood pressure continues to be elevated * Importance of smoking cessation has been addressed with the patient on several times. Will emphasized at the time of discharge as well. Documented By: Bryce Coy MD 03/02/24 1247 Signed By: <Electronically signed by MD Bryce Coy> 03/02/24 1336 [facility] Work Phone: Rezhby for referral (narrative) Referred by: TRUONG MOLINA, Robyn Tovar [facility] Reason for referral (narrative)* Consultation (Routine) - Authorized Specialty Diagnoses / Procedures Referred By Contsylvia t Referred To Contact Cardiology Diagnoses ASHD (arteriosclerotic heart disease) Procedures Follow Up In Cardiology Brianna Gomez DO [address] [place] [address] 2, [address] [address] Brianna Gomez DO [address] [place] [address] 2, [address] [address] Referral ID Status Reason Start Date Expiration Date V isits Requested Visits Authorized [id number] Authorized 12/03/2023 12/02/[address] [facility] Work Phone: Reespo for referral (narrative)No reason for referral information [facility] Work Phone: Reyrsy for visit NarrativeREFERRED BY DR. MEJÍA, NEED FOR AV FISTULA, VEIN MAPPING ORDER SENT TO [facility] BY DR. MEJÍA'S OFFICE AND REFERRAL BEING SENTNoStreamup Other Family History No Family History Records [...] Unknown Family history of mental disorder Unknown Relationship Condition Age at Onset Recorded Date/T frances mother Disorder of liver Unknown Diabetes mellitus Unknown [...] ACF, Uncontrolled HTN AFHD, CHF, Hx of [place] Reason for Visit Anemia CAD (coronary artery [...] ACF, Uncontrolled HTN AFHD, CHF, Hx of [place] AFHD, CHF, Hx of [place] Reason for Visit Anemia CAD (coronary artery disease) Chest pain Chronic kidney disease, stage IV (severe) Diabetes GERD (gastroesophageal reflux disease) History of placement of stent in LAD coronary artery Hypertension Kidney failure Chief Complaint ESRD ESRD ESRD N18.5 I12.9 E87.5 D63.1 N25.81 R80.9 E11.22 left arm injury-recent fistula placed cp r/o ACF, Uncontrolled HTN AFHD, CHF, Hx of [place] AFHD, CHF, Hx of [place] N18.6 I12.9 E87.5 D63.1 N25.81 R80.9 E11.22 [...] Uncontro lled HTN AFHD, CHF, Hx of [place] AFHD, CHF, Hx of [place] N18.6 I12.9 E87.5 D63.1 N25.81 R80.9 E11.22 MONOCLONAL Reason for Visit Anemia CAD (coronary artery disease) Chest pain Chronic kidney disease, stage IV (severe) Diabetes GERD (gastroesophageal reflux disease) History of placement of stent in LAD coronary artery Hypertension Kidney failure MGUS (monoclonal gammopathy of unknown significance) Stage 3b chronic kidney disease (CKD) Chief Complaint AFHD, CHF, Hx of [place] AFHD, CHF, Hx of [place] N18.6 I12.9 E87.5 D63.1 N25.81 R80.9 E11.22 [...] mellitus with hyperglycemia AV fistula Chief Complaint F/U REV LEFT ARM AVF 11/26/23 Dialysis Labels sob Reason for Visit AV fistula Acute hypoxic respiratory failure AV fistula ESRD (end stage renal disease) on dialysis HCAP (healthcare-associated pneumonia) Type 1 diabetes mellitus with hyperglycemia Chief Complaint F/U REV LEFT ARM AVF 11/26/23 Dialysis Labels sob sob Reason for Visit AV fistula Acute exacerbation of chronic obstructive airways disease Acute hypoxic respiratory failure Anemia in chronic kidney disease AV fistula ESRD (end stage renal disease) on dialysis HCAP (healthcare-associated pneumonia) Hypertensive CKD, ESRD on dialysis Secondary hyperparathyroidism Type 1 diabetes mellitus with hyperglycemia Chief Complaint F/U REV LEFT ARM AVF 11/26/23 Dialysis Labels sob sob Amb Documentation sob Reason for Visit AV fistula Acute exacerbation of chronic obstructive airways disease Acute hypoxic respiratory failure Anemia in chronic kidney disease AV fistula ESRD (end stage renal disease) on dialysis HCAP (healthcare-associated pneumonia) Hypertensive CKD, ESRD on dialysis Secondary hyperparathyroidism Type 1 diabetes mellitus with hyperglycemia Acute bronchitis Hypoxemia Chief Complaint F/U REV LEFT ARM AVF 11/26/23 Dialysis Labels sob sob Amb Documentation sob sob Reason for Visit AV fistula Acute exacerbation of chronic obstructive airways disease Anemia in chronic kidney disease AV fistula ESRD (end stage renal disease) on dialysis HCAP (healthcare-associated pneumonia) Hypertensive CKD, ESRD on dialysis Secondary hyperparathyroidism Type 1 diabetes mellitus with hyperglycemia Acute hypoxic respiratory failure Acute bronchitis Acute metabolic encephalopathy Acute on chronic diastolic heart failure Anemia in chronic kidney disease ESRD (end stage renal disease) on dialysis Hyperkalemia Hyperosmolar hyperglycemic state (HHS) Hypertensive CKD, ESRD on dialysis Hypoxemia Secondary hyperparathyroidism Type 1 diabetes mellitus with hyperglycemia Acute hypoxic respiratory failure Chief Complaint F/U REV LEFT ARM AVF 11/26/23 Dialysis Labels sob sob Amb Documentation sob sob [facility], pneumonia Reason for Visit AV fistula Acute exacerbation of chronic obstructive airways disease AV fistula HCAP (healthcare-associated pneumonia) Acute hypoxic respiratory failure Encephalopathy End-stage renal disease (ESRD) Hyperglycemia Acute bronchitis Acute hypoxic respiratory failure Acute metabolic encephalopathy Acute on chronic diastolic heart failure Hyperkalemia Hyperosmolar hyperglycemic state (HHS) Hypoxemia Acute exacerbation of chronic obstructive airways disease ASHD (arteriosclerotic heart disease) Primary hypertension Chief Complaint sob sob Amb Documentation sob sob [facility], pneumonia medication concerns, difficulty breathing Reason for Visit Acute exacerbation o f chronic obstructive airways disease AV fistula HCAP (healthcare-associated pneumonia) Acute hypoxic respiratory failure Encephalopathy End-stage renal disease (ESRD) Hyperglycemia Acute bronchitis Acute hypoxic respiratory failure Acute metabolic encephalopathy Acute on chronic diastolic heart failure Hyperkalemia Hyperosmolar hyperglycemic state (HHS) Hypoxemia Acute exacerbation of chronic obstructive airways disease ASHD (arteriosclerotic heart disease) Nicotine addiction Primary hypertension ASHD (arteriosclerotic heart disease) Nicotine addiction Primary hypertension Chief Complaint Admit Date Hypothermia June 22, 2024 1 2:25pm Hypothermia June 22, 2024 1 :56pm sob August 01, 2024 1:49am Amb Documentation August 04, 2024 10:12am coughing, runny nose,headache July 212023 1:55pm Amb Documentation August 21, 2024 1: 44pm coughing up blood August 28, 2024 1 :27am Reason for Visit Admit Date End-stage renal disease (ESRD) June 22, 2024 12:25pm Hypertensive CKD, ESRD on dialysis Novem 2023 12:25pm Hypoglycemia June 22, 2024 1 2:25pm Hypothermia June 22, 2024 1 2:25pm Missed dialysis June 22, 2024 1 2:25pm Secondary hyperparathyroidism June 222023 12:25pm Type 1 diabetes mellitus June 22, 2 024 12:25pm Acute bacterial bronchitis August 28, 2024 1:27am Anemia of renal disease August 28 1:27am CAP (community acquired pneumonia) [facility] 2024 1:27am Chronic 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 August 28, 2024 1:27am Cough with hemoptysis August 28, 2024 1:27am ESRD on hemodialysis August 28, 2024 1:27am Hypertension August 28, 2024 1 :27am Pulmonary edema August 28, 2024 1 :27am Type 1 diabetes mellitus August 28 2 025 1:27am Chief Complaint Admit Date Hypothermia June 22, 2024 1 2:25pm Hypothermia June 22, 2024 1 :56pm sob August 01, 2024 1:49am Amb Documentation August 04, 2024 10:12am coughing, runny nose,headache July 212023 1:55pm Amb Documentation August 21, 2024 1: 44pm coughing up blood August 28, 2024 1 :27am coughing up blood August 28, 2024 1 1:11am Reason for Visit Admit Date End-stage renal disease (ESRD) June 22, 2024 12:25pm Hypertensive CKD, ESRD on dialysis Novem 2023 12:25pm Hypoglycemia June 22, 2024 1 2:25pm Hypothermia June 22, 2024 1 2:25pm Missed dialysis June 22, 2024 1 2:25pm Secondary hyperparathyroidism June 222023 12:25pm Type 1 diabetes mellitus June 22, 2 024 12:25pm Acute bacterial bronchitis August 28, 2024 1:27am Anemia of renal disease August 28 1:27am CAP (community acquired pneumonia) 2024 1:27am Chronic 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 August 28, 2024 1:27am Cough with hemoptysis August 28, 2024 1:27am ESRD on hemodialysis August 28, 2024 1:27am Hypertension August 28, 2024 1 :27am Hypertensive CKD, ESRD on dialysis 2024 1:27am Pulmonary edema August 28, 2024 1 :27am Secondary hyperparathyroidism August 282024 1:27am Type 1 diabetes mellitus August 28 2 025 1:27am Type 2 diabetes mellitus wit h diabetic chronic kidney disease August 28, 2024 1:27am Chief Complaint Admit Date Hypothermia June 22, 2024 1 2:25pm Hypothermia June 22, 2024 1 :56pm sob August 01, 2024 1:49am Amb Documentation August 04, 2024 10:12am coughing, runny nose,headache July 212023 1:55pm Amb Documentation August 21, 2024 1: 44pm coughing up blood August 28, 2024 1 :27am coughing up blood August 28, 2024 1 1:11am wellness September 02, 2024 1 :01pm Reason for Visit Admit Date End-stage renal disease (ESRD) June 22, 2024 12:25pm Hypertensive CKD, ESRD on dialysis Novem 2023 12:25pm Secondary hyperparathyroidism June 222023 12:25pm Type 1 diabetes mellitus June 22, 2 024 12:25pm Hypoglycemia June 22, 2024 1 2:25pm Hypothermia June 22, 2024 1 2:25pm Missed dialysis June 22, 2024 1 2:25pm Acute bacterial bronchitis August 28, 2024 1:27am Anemia of renal disease August 28 1:27am CAP (community acquired pneumonia) 2024 1:27am Chronic 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 August 28, 2024 1:27am Cough with hemoptysis August 28, 2024 1:27am ESRD on hemodialysis August 28, 2024 1:27am Hypertensive CKD, ESRD on dialysis 2024 1:27am Pulmonary edema August 28, 2024 1 :27am Secondary hyperparathyroidism August 282024 1:27am Type 1 diabetes mellitus August 28, 2 025 1:27am Type 2 diabetes mellitus wit h diabetic chronic kidney disease August 28, 2024 1:27am Hypertension August 28, 2024 1 :27am ASHD (arteriosclerotic heart disease) [facility] 2024 1:01pm End-stage renal disease (ESRD) August 192024 1:01pm ESRD on hemodialysis September 02, 2024 1:01pm Insomnia September 02, 2024 1 :01pm Nicotine addiction September 02, 2024 1 :01pm Primary hypertension September 02, 2024 1:01pm Wellness examination September 02, 2024 1:01pm Chief Complaint Admit Date Hypothermia June 22, 2024 1 2:25pm Hypothermia June 22, 2024 1 :56pm sob August 01, 2024 1:49am Amb Documentation August 04, 2024 10:12am coughing, runny nose,headache July 212023 1:55pm Amb Documentation August 21, 2024 1: 44pm coughing up blood August 28, 2024 1 :27am coughing up blood August 28, 2024 1 1:11am wellness September 02, 2024 1 :01pm sugar is low, abd pain, diabetic September 16, 2024 1:09am sugar is low, abd pain, diabetic September 16, 2024 11:36am Reason for Visit Admit Date Hypertensive CKD, ESRD on dialysis Novem 2023 12:25pm Secondary hyperparathyroidism June 222023 12:25pm End-stage renal disease (ESRD) June 22, 2024 12:25pm Hypoglycemia June 22, 2024 1 2:25pm Hypothermia June 22, 2024 1 2:25pm Missed dialysis June 22, 2024 1 2:25pm Type 1 diabetes mellitus June 22, 2 024 12:25pm Anemia of renal disease August 28 1:27am ESRD on hemodialysis August 28, 2024 1:27am Hypertensive CKD, ESRD on dialysis [facility] 2024 1:27am Secondary hyperparathyroidism August 282024 1:27am Acute bacterial bronchitis August 28, 2024 1:27am Cough with hemoptysis August 28, 2024 1:27am CAP (community acquired pneumonia) [facility] 2024 1:27am Chronic 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 August 28, 2024 1:27am Hypertension August 28, 2024 1 :27am Pulmonary edema August 28, 2024 1 :27am Type 1 diabetes mellitus August 28, 2 025 1:27am Type 2 diabetes mellitus wit h diabetic chronic kidney disease August 28, 2024 1:27am ASHD (arteriosclerotic heart disease) [facility] 2024 1:01pm ESRD on hemodialysis September 02, 2024 1:01pm Insomnia September 02, 2024 1 :01pm Primary hypertension September 02, 2024 1:01pm Wellness examination September 02, 2024 1:01pm CAP (community acquired pneumonia) [facility] 2024 1:01pm Nicotine addiction September 02, 2024 1 :01pm Anemia of renal disease September 16 1:09am CAP (community acquired pneumonia) [facility] 2024 1:09am Constipation September 16, 2024 1 :09am COVID-19 September 16, 2024 1 :09am ESRD on hemodialysis September 16, 2024 1:09am Hypertensive CKD, ESRD on dialysis [facility] 2024 1:09am Secondary hyperparathyroidism September 162024 1:09am Chief Complaint Admit Date Hypothermia June 22, 2024 1 2:25pm Hypothermia June 22, 2024 1 :56pm sob August 01, 2024 1:49am Amb Documentation August 04, 2024 10:12am coughing, runny nose,headache July 212023 1:55pm Amb Documentation August 21, 2024 1: 44pm coughing up blood August 28, 2024 1 :27am coughing up blood August 28, 2024 1 1:11am wellness September 02, 2024 1 :01pm sugar is low, abd pain, diabetic September 16, 2024 1:09am sugar is low, abd pain, diabetic September 16, 2024 11:36am sugar is low, abd pain, diabetic September 17, 2024 10:45am Chief Complaint Admit Date sob August 01, 2024 1:49am Amb Documentation August 04, 2024 10:12am coughing, runny nose,headache July 212023 1:55pm Amb Documentation August 21, 2024 1: 44pm coughing up blood August 28, 2024 1 :27am coughing up blood August 28, 2024 1 1:11am wellness September 02, 2024 1 :01pm sugar is low, abd pain, diabetic September 16, 2024 1:09am sugar is low, abd pain, diabetic September 16, 2024 11:36am sugar is low, abd pain, diabetic September 17, 2024 10:45am Amb Documentation September 18, 2024 9 :25am Amb Documentation September 21, 2024 8 :00am Amb Documentation October 05, 2024 9:23am TBH: fall/ week f/u October 14, 2024 12:55pm Reason for Visit Admit Date Acute bacterial bronchitis August 28, 2024 1:27am Anemia of renal disease August 28 1:27am Cough with hemoptysis August 28, 2024 1:27am ESRD on hemodialysis August 28, 2024 1:27am Hypertensive CKD, ESRD on dialysis 2024 1:27am Secondary hyperparathyroidism August 282024 1:27am CAP (community acquired pneumonia) 2024 1:27am Chronic 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 August 28, 2024 1:27am Hypertension August 28, 2024 1 :27am Pulmonary edema August 28, 2024 1 :27am Type 1 diabetes mellitus August 28 025 1:27am Type 2 diabetes mellitus wit h diabetic chronic kidney disease August 28, 2024 1:27am ASHD (arteriosclerotic heart disease) [facility] 2024 1:01pm Insomnia September 02, 2024 1 :01pm Primary hypertension September 02, 2024 1:01pm Wellness examination September 02, 2024 1:01pm ESRD on hemodialysis September 02, 2024 1:01pm CAP (community acquired pneumonia) [facility] 2024 1:01pm Nicotine addiction September 02, 2024 1 :01pm Anemia of renal disease September 16 1:09am CAP (community acquired pneumonia) [facility] 2024 1:09am Constipation September 16, 2024 1 :09am COVID-19 September 16, 2024 1 :09am ESRD on hemodialysis September 16, 2024 1:09am Hypertensive CKD, ESRD on dialysis [facility] 2024 1:09am Secondary hyperparathyroidism September 162024 1:09am ASHD (arteriosclerotic heart disease) [facility] 2024 12:55pm Primary hypertension October 14, 2024 12:55pm Chief Complaint Admit Date sob August 01, 2024 1:49am Amb Documentation August 04, 2024 10:12am coughing, runny nose,headache July 212023 1:55pm Amb Documentation August 21, 2024 1: 44pm coughing up blood August 28, 2024 1 :27am coughing up blood August 28, 2024 1 1:11am wellness September 02, 2024 1 :01pm sugar is low, abd pain, diabetic September 16, 2024 1:09am sugar is low, abd pain, diabetic September 16, 2024 11:36am sugar is low, abd pain, diabetic September 17, 2024 10:45am Amb Documentation September 18, 2024 9 :25am Amb Documentation September 21, 2024 8 :00am Amb Documentation October 05, 2024 9:23am TBH: fall/6 week f/u October 14, 2024 12:55pm Fall October 30, 2024 8:1 0am Reason for Visit Admit Date Acute bacterial bronchitis August 28, 2024 1:27am Anemia of renal disease August 28 1:27am Cough with hemoptysis August 28, 2024 1:27am ESRD on hemodialysis August 28, 2024 1:27am Hypertensive CKD, ESRD on dialysis [facility] 2024 1:27am Secondary hyperparathyroidism August 282024 1:27am CAP (community acquired pneumonia) [facility] 2024 1:27am Chronic 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 August 28, 2024 1:27am Hypertension August 28, 2024 1 :27am Pulmonary edema August 28, 2024 1 :27am Type 1 diabetes mellitus August 28 1:27am Type 2 diabetes mellitus wit h diabetic chronic kidney disease August 28, 2024 1:27am ASHD (arteriosclerotic heart disease) [facility] 2024 1:01pm Insomnia September 02, 2024 1 :01pm Primary hypertension September 02, 2024 1:01pm Wellness examination September 02, 2024 1:01pm ESRD on hemodialysis September 02, 2024 1:01pm CAP (community acquired pneumonia) [facility] 2024 1:01pm Nicotine addiction September 02, 2024 1 :01pm Anemia of renal disease September 16 1:09am CAP (community acquired pneumonia) [facility] 2024 1:09am Constipation September 16, 2024 1 :09am COVID-19 September 16, 2024 1 :09am ESRD on hemodialysis September 16, 2024 1:09am Hypertensive CKD, ESRD on dialysis [facility] 2024 1:09am Secondary hyperparathyroidism September 162024 1:09am ASHD (arteriosclerotic heart disease) Fe bruary 2024 12:55pm Chronic bronchitis, mucopurulent Februar y 2024 12:55pm Chronic heart failure with p reserved ejection fraction (HFpEF) October 14, 2024 12:55pm Contusion of right lower extremity Febru [facility] 2024 12:55pm Primary hypertension October 14, 2024 12:55pm Type 1 diabetes mellitus with hyperglyce nida October 14, 2024 12:55pm ESRD (end stage renal disease) on dialys is October 14, 2024 12:55pm Nicotine addiction October 14, 2024 12:55pm Chief Complaint Admit Date Amb Documentation August 04, 2024 10:12am coughing, runny nose,headache July 212023 1:55pm Amb Documentation August 21, 2024 1: 44pm coughing up blood August 28, 2024 1 :27am coughing up blood August 28, 2024 1 1:11am wellness September 02, 2024 1 :01pm sugar is low, abd pain, diabetic September 16, 2024 1:09am sugar is low, abd pain, diabetic September 16, 2024 11:36am sugar is low, abd pain, diabetic September 17, 2024 10:45am Amb Documentation September 18, 2024 9 :25am Amb Documentation September 21, 2024 8 :00am Amb Documentation October 05, 2024 9:23am TBH: fall/ week f/u October 14, 2024 12:55pm Fall October 30, 2024 8:1 0am vomiting, weakness November 01, 2024 10: 56pm Reason for Visit Admit Date Acute bacterial bronchitis August 28, 2024 1:27am Anemia of renal disease August 28 1:27am Cough with hemoptysis August 28, 2024 1:27am ESRD on hemodialysis August 28, 2024 1:27am Hypertensive CKD, ESRD on dialysis Aug 2024 1:27am Secondary hyperparathyroidism August 282024 1:27am CAP (community acquired pneumonia) Aug 2024 1:27am Chronic 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 August 28, 2024 1:27am Hypertension August 28, 2024 1 :27am Pulmonary edema August 28, 2024 1 :27am Type 1 diabetes mellitus August 28, 2 025 1:27am Type 2 diabetes mellitus wit h diabetic chronic kidney disease August 28, 2024 1:27am ASHD (arteriosclerotic heart disease) [facility] 2024 1:01pm Insomnia September 02, 2024 1 :01pm Primary hypertension September 02, 2024 1:01pm Wellness examination September 02, 2024 1:01pm ESRD on hemodialysis September 02, 2024 1:01pm CAP (community acquired pneumonia) Aug 2024 1:01pm Nicotine addiction September 02, 2024 1 :01pm Anemia of renal disease September 16 1:09am CAP (community acquired pneumonia) [facility] 2024 1:09am Constipation September 16, 2024 1 :09am COVID-19 September 16, 2024 1 :09am ESRD on hemodialysis September 16, 2024 1:09am Hypertensive CKD, ESRD on dialysis [facility] 2024 1:09am Secondary hyperparathyroidism September 162024 1:09am ASHD (arteriosclerotic heart disease) Fe [facility] 2024 12:55pm Chronic bronchitis, mucopurulent Februar y 2024 12:55pm Chronic heart failure with p reserved ejection fraction (HFpEF) October 14, 2024 12:55pm Contusion of right lower extremity Febru [facility] 2024 12:55pm Primary hypertension October 14, 2024 12:55pm Type 1 diabetes mellitus with hyperglyce nida October 14, 2024 12:55pm ESRD (end stage renal disease) on dialys is October 14, 2024 12:55pm Nicotine addiction October 14, 2024 12:55pm Acute hyperkalemia November 01, 2024 10: 56pm Missed dialysis November 01, 2024 10: 56pm T wave inversion in EKG November 01, 2024 10:56pm Uncontrolled hypertension November 01 10:56pm Uremia November 01, 2024 10: 56pm Chief Complaint Admit Date Amb Documentation August 04, 2024 10:12am coughing, runny nose,headache July 212023 1:55pm Amb Documentation August 21, 2024 1: 44pm coughing up blood August 28, 2024 1 :27am coughing up blood August 28, 2024 1 1:11am wellness September 02, 2024 1 :01pm sugar is low, abd pain, diabetic September 16, 2024 1:09am sugar is low, abd pain, diabetic September 16, 2024 11:36am sugar is low, abd pain, diabetic September 17, 2024 10:45am Amb Documentation September 18, 2024 9 :25am Amb Documentation September 21, 2024 8 :00am Amb Documentation October 05, 2024 9:23am TBH: fall/ week f/u October 14, 2024 12:55pm Fall October 30, 2024 8:1 0am vomiting, weakness November 01, 2024 10: 56pm vomiting, weakness November 02, 2024 12: 02pm Reason for Visit Admit Date Acute bacterial bronchitis August 28, 2024 1:27am Anemia of renal disease August 28 1:27am Cough with hemoptysis August 28, 2024 1:27am ESRD on hemodialysis August 28, 2024 1:27am Hypertensive CKD, ESRD on dialysis [facility] 2024 1:27am Secondary hyperparathyroidism August 282024 1:27am CAP (community acquired pneumonia) Aug 2024 1:27am Chronic 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 August 28, 2024 1:27am Hypertension August 28, 2024 1 :27am Pulmonary edema August 28, 2024 1 :27am Type 1 diabetes mellitus August 28 025 1:27am Type 2 diabetes mellitus wit h diabetic chronic kidney disease August 28, 2024 1:27am ASHD (arteriosclerotic heart disease) [facility] 2024 1:01pm Insomnia September 02, 2024 1 :01pm Primary hypertension September 02, 2024 1:01pm Wellness examination September 02, 2024 1:01pm ESRD on hemodialysis September 02, 2024 1:01pm CAP (community acquired pneumonia) Aug 2024 1:01pm Nicotine addiction September 02, 2024 1 :01pm Anemia of renal disease September 16 1:09am CAP (community acquired pneumonia) Aug 2024 1:09am Constipation September 16, 2024 1 :09am COVID-19 September 16, 2024 1 :09am ESRD on hemodialysis September 16, 2024 1:09am Hypertensive CKD, ESRD on dialysis [facility] ry 2024 1:09am Secondary hyperparathyroidism September 162024 1:09am ASHD (arteriosclerotic heart disease) Fe bruary 2024 12:55pm Chronic bronchitis, mucopurulent Februar y 2024 12:55pm Chronic heart failure with p reserved ejection fraction (HFpEF) October 14, 2024 12:55pm Contusion of right lower extremity Febru margoth 2024 12:55pm Primary hypertension October 14, 2024 12:55pm Type 1 diabetes mellitus with hyperglyce nida October 14, 2024 12:55pm ESRD (end stage renal disease) on dialys is October 14, 2024 12:55pm Nicotine addiction October 14, 2024 12:55pm Acute hyperkalemia November 01, 2024 10: 56pm ESRD (end stage renal disease) October 10:56pm Missed dialysis November 01, 2024 10: 56pm T wave inversion in EKG November 01, 2024 10:56pm Uncontrolled hypertension November 01 10:56pm Uremia November 01, 2024 10: 56pm Hypertensive CKD, ESRD on dialysis November 01, 2024 10:56pm Secondary hyperparathyroidism October 10:56pm Anemia in chronic kidney disease October 172024 10:56pm Type 1 diabetes mellitus with hyperglyce nida November 01, 2024 10:56pm ESRD (end stage renal disease) on dialys is November 01, 2024 10:56pm Chief Complaint Admit Date Amb Documentation September 18, 2024 9 :25am Amb Documentation September 21, 2024 8 :00am Amb Documentation October 05, 2024 9:23am TBH: fall/ week f/u October 14, 2024 12:55pm Fall October 30, 2024 8:1 0am vomiting, weakness November 01, 2024 10: 56pm vomiting, weakness November 02, 2024 12: 02pm Elevated BP December 16, 2024 11: 43pm Reason for Visit Admit Date ASHD (arteriosclerotic heart disease) Fe bruary 2024 12:55pm Chronic bronchitis, mucopurulent Februar y 2024 12:55pm Chronic heart failure with p reserved ejection fraction (HFpEF) October 14, 2024 12:55pm Contusion of right lower extremity Febru margoth 2024 12:55pm Primary hypertension October 14, 2024 12:55pm Type 1 diabetes mellitus with hyperglyce nida October 14, 2024 12:55pm ESRD (end stage renal disease) on dialys is October 14, 2024 12:55pm Nicotine addiction October 14, 2024 12:55pm ESRD (end stage renal disease) October 10:56pm T wave inversion in EKG November 01, 2024 10:56pm Uncontrolled hypertension November 01 10:56pm Acute hyperkalemia November 01, 2024 10: 56pm Hypertensive CKD, ESRD on dialysis November 01, 2024 10:56pm Missed dialysis November 01, 2024 10: 56pm Secondary hyperparathyroidism October 10:56pm Uremia November 01, 2024 10: 56pm Anemia in chronic kidney disease October 172024 10:56pm Type 1 diabetes mellitus with hyperglyce nida November 01, 2024 10:56pm ESRD (end stage renal disease) on dialys is November 01, 2024 10:56pm Chief Complaint Admit Date Fall October 30, 2024 8:1 0am vomiting, weakness November 01, 2024 10: 56pm vomiting, weakness November 02, 2024 12: 02pm Elevated BP December 16, 2024 11: 43pm Amb Documentation December 17, 2024 1:19pm 3 month f/u January 12, 2025 2:40p m Reason for Visit Admit Date ESRD (end stage renal disease) October 10:56pm T wave inversion in EKG November 01, 2024 10:56pm Uncontrolled hypertension November 01 10:56pm Acute hyperkalemia November 01, 2024 10: 56pm Hypertensive CKD, ESRD on dialysis November 01, 2024 10:56pm Missed dialysis November 01, 2024 10: 56pm Secondary hyperparathyroidism October 10:56pm Uremia November 01, 2024 10: 56pm Anemia in chronic kidney disease October 172024 10:56pm Type 1 diabetes mellitus with hyperglyce nida November 01, 2024 10:56pm ESRD (end stage renal disease) on dialys is November 01, 2024 10:56pm ASHD (arteriosclerotic heart disease) Ma y 2024 2:40pm Chronic bronchitis, mucopurulent December 2:40pm Chronic heart failure with p reserved ejection fraction (HFpEF) January 12, 2025 2:40pm Contusion of right lower extremity December 182024 2:40pm Primary hypertension January 12, 2025 2:40 pm Type 1 diabetes mellitus with hyperglyce nida January 12, 2025 2:40pm Chief Complaint Admit Date Fall October 30, 2024 8:1 0am vomiting, weakness November 01, 2024 10: 56pm vomiting, weakness November 02, 2024 12: 02pm Elevated BP December 16, 2024 11: 43pm Amb Documentation December 17, 2024 1:19pm 3 month f/u January 12, 2025 2:40p m hx W[place], ashd, mixed hyperlipidemia January 192024 8:01am hx [place], ashd, mixed hyperlipidemia January 212024 10:39am Reason for Visit Admit Date ESRD (end stage renal disease) October 10:56pm Acute hyperkalemia November 01, 2024 10: 56pm Hypertensive CKD, ESRD on dialysis November 01, 2024 10:56pm Missed dialysis November 01, 2024 10: 56pm Secondary hyperparathyroidism October 10:56pm Uremia November 01, 2024 10: 56pm Anemia in chronic kidney disease October 172024 10:56pm Type 1 diabetes mellitus with hyperglyce [facility] November 01, 2024 10:56pm ESRD (end stage renal disease) on dialys is November 01, 2024 10:56pm T wave inversion in EKG November 01, 2024 10:56pm Uncontrolled hypertension November 01 10:56pm ASHD (arteriosclerotic heart disease) Ma y 2024 2:40pm Chronic bronchitis, mucopurulent December 2:40pm Chronic heart failure with p reserved ejection fraction (HFpEF) January 12, 2025 2:40pm Dependence on renal dialysis January 12, 2 025 2:40pm ESRD (end stage renal disease) January 12, 2025 2:40pm Nicotine addiction January 12, 2025 2:40p m Primary hypertension January 12, 2025 2:40 pm Right shoulder pain January 12, 2025 2:40p m Type 1 diabetes mellitus with hyperglyce nida January 12, 2025 2:40pm Chief Complaint Admit Date Fall October 30, 2024 8:1 0am vomiting, weakness November 01, 2024 10: 56pm vomiting, weakness November 02, 2024 12: 02pm Elevated BP December 16, 2024 11: 43pm Amb Documentation December 17, 2024 1:19pm 3 month f/u January 12, 2025 2:40p m hx [place], ashd, mixed hyperlipidemia January 192024 8:01am Chief Complaint Admit Date 3 month f/u January 12, 2025 2:40p m hx [place], ashd, mixed hyperlipidemia January 192024 8:01am hx [place], ashd, mixed hyperlipidemia January 212024 10:39am C/O PAIN IN ACCESS ARM; GFS L ARM 10A Au deana 2024 10:44am 18.6 April 01, 2025 10 :45am Reason for Visit Admit Date ASHD (arteriosclerotic heart disease) Ma y 2024 2:40pm Chronic bronchitis, mucopurulent December 2:40pm Chronic heart failure with preserved eje ction fraction (HFpEF) January 12, 2025 2:40pm Dependence on renal dialysis January 12, 2 025 2:40pm ESRD (end stage renal disease) January 12, 2025 2:40pm Nicotine addiction January 12, 2025 2:40p m Primary hypertension January 12, 2025 2:40 pm Right shoulder pain January 12, 2025 2:40p m Type 1 diabetes mellitus with hyperglyce nida January 12, 2025 2:40pm Reason for Visit Admit Date ASHD (arteriosclerotic heart disease) Ma y 2024 2:40pm Chronic bronchitis, mucopurulent December 2:40pm Chronic heart failure with p reserved ejection fraction (HFpEF) January 12, 2025 2:40pm Dependence on renal dialysis January 12, 2 025 2:40pm ESRD (end stage renal disease) January 12, 2025 2:40pm Nicotine addiction January 12, 2025 2:40p m Primary hypertension January 12, 2025 2:40 pm Right shoulder pain January 12, 2025 2:40p m Type 1 diabetes mellitus with hyperglyce nida January 12, 2025 2:40pm Pain from arteriovenous fistula March 192024 10:44am Advance Directives No Advanced Directives Records Found [...] and is followed by nephrology. Hesustained anterior WV in October 2021 with primary revascularization of the LAD with residual circumflex and RCA disease. His left ventricular function at that time was 40 to 45%. He has underlying type 1 diabetes, progressive/chronic kidney disease as noted, ongoing tobacco use, class II angina. * Is [place] [employer] is class IIc and remains hemodynamically stable * Recommendations: Tobacco cessation counseling, initiate isosorbide 30 mg daily for known disease and angina complaints, limited echo to assess LV function, obtain lipid panel and high-sensitivity CRPwe will follow-up again in 6 months * YOEL WERNER is being seen for follow-up of a hospitalization for chest pain. [facility]. * 37-year-old gentleman returns following recent hospitalization for unstable angina and hypertensionand anxiety. We escalated his isosorbide and hydralazine and is feeling much better. * Patient has a prior history of anterior WV in October 2021 with primary revascularization of [...] follow-up of a hospitalization for chest pain. [facility]. * 37-year-old gentleman returns following recent hospitalization for unstable angina and hypertensionand anxiety. We escalated his isosorbide and hydralazine and is feeling much better. * Patient has a prior history of anterior WV in October 2021 with primary revascularization of [...] drug-eluting stents. He has had previous anterior WV with revascularization of the LAD. He has [...] drug-eluting stents. He has had previous anterior W[place] with revascularization of the LAD. He has [...] MR shoulder left wo IV contrast Nelida Carrington, [employer] [address] [place] [address] Referral ID Status Reason Start Date Expiration Date V isits Requested Visits Authorized [id number] Pending Review 09/30/2023 03/28/2024 1 1 Reason Patient c/o Peyronie 's disease, decreased libido and ED Diagnosis 1 Peyronie's disease ( N48.6) Diagnosis 2 Decreased libido (R6 8.82) Diagnosis 3 Erectile dysfunction due to arterial insufficiency (N52.01) Referral Organization [facility] Medical [facility] qi Referring Provider First Name Eusebio Referring Provider Last Name Taye Referring Provider Specialty Internal Me dicine Referred Organization [facility] Referred Provider Robyn Guerin Referred Address [address] [place] Referred Provider Specialty Urology Referral Priority Routine [...] (unrecogniz ed section and content) Reason Comments DM Foot Care Dm nail care Reason Comments Follow-up 6m follow up for Art eriosclerotic heart disease Specialty Diagnoses / Procedures Referred By Chapis corral Referred To Contact Cardiology Diagnoses ASHD (arteriosclerotic heart disease) Procedures Follow Up In Cardiology Brianna Gomez, DO [address] [facility] [address], [facility] [address] [place] [address] Phone: tel: fax: Brianna Gomez, DO [address] [facility] [address], [address] [place] [address] Phone: tel: fax: Referral ID Status Reason Start Date Expiration Date V isits Requested Visits Authorized [id number] Authorized 06/11/2024 06/11/2025 1 1 Reason Comments Follow-up 6 months Specialty Diagnoses / Procedures Referred By Chapis t Referred To Contact Cardiology Diagnoses ASHD (arteriosclerotic heart disease) Procedures Follow Up In Cardiology Brianna Gomez, [address] [facility] [address], [place] [address] Phone: tel: fax: Brianna Gomez, DO [address] [facility] [address], [place] [id number] Phone: tel: fax: Referral ID Status Reason Start Date Expiration Date V isits Requested Visits Authorized [id number] Pending Review 12/03/2023 12/02/2024 1 1 Reason Comments DM Foot Care Dm Nails Reason Comments Follow-up 6m Reason Comments Follow-up LancetsReferralIssues with fistula; GFS Left arm at 8:82aoPvebb6 month Follow uplab resultsTBH/ 6 Month Check Up2 WK S/P FISTULOGRAM; GFS LEFT ARM 07/02/23HAVING ARTERIAL SPASMS DURING TREATMENT AND COMPLAINING OF PAIN IN ARM AGAIN; GFS 9Ano energy, cough since this weekend [phone] MONTH FOLLOW UP; DIALYSIS PTUremia and AnemiaF/U FISTULOGRAMRENAL INJ RETACRIT7 WK F/U WITH GFS IN OFFICEHEARTCATHprescription refillF/U LT AVF CREATION 3WKhospital follow upCKD and HTN Reason Comments Returning Patient's Call RETACRIT INJClinicalREFILLAnemia and CKDCKD and AnemiaCKD , Proteinuria, Edema Care Teams (unrecognized sec tion and content) Team Status: Active Member Role Status Dates Eusebio Olivares DO Primary Care Provider Active Team Status: Inactive Member Role Status Dates Eusebio Olivares DO Primary Care Provider Active Start: October 30, 2024 End: October 30, 2024 Zeus Bradley DO Emergency Provider Active Start: October 30, 2024 End: October 30, 2024 Team Status: Inactive Member Role Status Dates Eusebio Olivares DO Primary Care Provider Active Start: November 01, 2024 End: November 02, 2024 Hector Mann DO Emergency Provider Active Sta rt: November 01, 2024 End: November 02, 2024 Judd Jacobs MD Admit Provider Active S tart: November 01, 2024 End: November 02, 2024 Law Cano MD Attending Provider Active St art: November 01, 2024 End: November 02, 2024 Bryce Coy MD Other Provider Active Start: [facility] 2024 End: November 02, 2024 DAVION Thorne Other Provider Active Start: November 01, 2024 End: November 02, 2024 Angel Mejía MD Other Provider Active Start: [facility] 2024 End: November 02, 2024 Nancy Haas MD Other Provider Active Start: [facility] 2024 End: November 02, 2024 Team Status: Active Member Role Status Dates Eusebio Olivares DO Primary Care Provider Active Start: November 02, 2024 Hector Mann DO Emergency Provider Active Sta rt: November 02, 2024 Judd Jacobs MD Admit Provider Active S tart: November 02, 2024 Law Cano MD Other Provider Active Start: November 02, 2024 Bryce Coy MD Attending Provider, Other Provider Active Start: November 02, 2024 DAVION Thorne Other Provider Active Start: November 02, 2024 Angel Mejía MD Other Provider Active Start: [facility] 2024 Nancy Haas MD Other Provider Active Start: [facility] 2024 Team Status: Active Member Role Status Dates Eusebio Olivares DO Primary Care Provider Active Start: November 06, 2024 Nancy Haas MD Attending Provider Active Star t: November 06, 2024 Team Status: Active Member Role Status Dates Eusebio Olivares DO Primary Care Provider Active Start: November 09, 2024 Nancy Haas MD Attending Provider Active Star t: November 09, 2024 Team Status: Active Member Role Status Dates Eusebio Olivares DO Primary Care Provider Active Start: December 10, 2024 Bryce Coy MD Attending Provider Active Star t: December 10, 2024 Team Status: Inactive Member Role Status Dates Eusebio Olivares DO Primary Care Provider Active Start: December 16, 2024 End: December 17, 2024 Robyn Jose DO Emergency Provider Active St art: December 16, 2024 End: December 17, 2024 Team Status: Active Member Role Status Dates Eusebio Olivares DO Primary Care Provider Active Start: December 17, 2024 Heather Bryant CMA Attending Provider Active Start: December 17, 2024 Team Status: Inactive Member Role Status Dates Eusebio Olivares DO Primary Care Provide r, Attending Provider Active Start: January 12, 2025 End: January 12, 2025 Team Status: Active Member Role Status Dates Eusebio Olivares DO Primary Care Provider Active Start: August 04, 2024 Heather Bryant CMA Attending Provider Active Start: August 04, 2024 Team Status: Active Member Role Status Dates Eusebio Olivares DO Primary Care Provider Active Start: August 11, 2024 Nancy Haas MD Attending Provider Active Star t: August 11, 2024 Team Status: Inactive Member Role Status Dates Eusebio Olivares DO Primary Care Provider Active Start: August 17, 2024 End: August 17, 2024 Donna Shaw APRN Emergency Provider Active Start: August 17, 2024 End: August 17, 2024 Team Status: Active Member Role Status Dates Eusebio Olivares DO Primary Care Provider Active Start: August 21, 2024 Heather Bryant CMA Attending Provider Active Start: August 21, 2024 Team Status: Inactive Member Role Status Dates Eusebio Olivares DO Primary Care Provider Active Start: August 28, 2024 End: August 29, 2024 Sondra Ruvalcaba DO RES Active St art: August 28, 2024 End: August 29, 2024 Romain Rios DO Emergency Provider Active Start: August 28, 2024 End: August 29, 2024 Dwayne Little DO Admit Provider Active Start: August 28, 2024 End: August 29, 2024 Law Cano MD Attending Provider Active St art: August 28, 2024 End: August 29, 2024 Angel Mejía MD Other Provider [facility] End: August 29, 2024 Team Status: Active Member Role Status Dates Eusebio Olivares DO Primary Care Provider Active Start: August 28, 2024 Sondra Ruvalcaba DO RES Active St art: August 28, 2024 Romain Rios DO Emergency Provider Active Start: August 28, 2024 Dwayne Little DO Admit Provider Active Start: August 28, 2024 Law Cano MD Other Provider Active Start: August 28, 2024 Angel Mejía MD Attending Provider, Other Provider Active Start: August 28, 2024 Team Status: Inactive Member Role Status Dates Eusebio Olivares DO Primary Care Provide r, Attending Provider Active Start: September 02, 2024 End: September 02, 2024 Team Status: Active Member Role Status Dates Eusebio Olivares DO Primary Care Provider Active Start: September 11, 2024 Angel Mejía MD Attending Provider Active Start : September 11, 2024 Team Status: Inactive Member Role Status Dates Eusebio Olivares DO Primary Care Provider Active Start: September 16, 2024 End: September 17, 2024 Romain Rios DO Emergency Provider Active Start: September 16, 2024 End: September 17, 2024 Julio Allen MD Admit Provider Active Start: September 16, 2024 End: September 17, 2024 Angel Mejía MD Other Provider Active Start: Leandro luna 2024 End: September 17, 2024 Toney Riley MD Attending Provider Active St art: September 16, 2024 End: September 17, 2024 Crow Conte MD Other Provider Active Start: Katrina kendrick 2024 End: September 17, 2024 Team Status: Active Member Role Status Dates Eusebio Olivares DO Primary Care Provider Active Start: September 16, 2024 Romain Rios DO Emergency Provider Active Start: September 16, 2024 Julio Allen MD Admit Provider Active Start: September 16, 2024 Angel Mejía MD Attending Provider, Other Provider Active Start: September 16, 2024 Enrique Kirby DO Other Provider Active Start : September 16, 2024 Team Status: Active Member Role Status Dates Eusebio Olivares DO Primary Care Provider Active Start: September 17, 2024 Romain Rios DO Emergency Provider Active Start: September 17, 2024 Julio Allen MD Admit Provider Active Start: September 17, 2024 Angel Mejía MD Other Provider Active Start: Leandro luna 2024 Toney Riley MD Other Provider Active Start: September 17, 2024 Crow Conte MD Attending Provider, Other Provider Active Start: September 17, 2024 Hernando Joseph MD Active Start: September 17, 2024 Team Status: Active Member Role Status Dates Eusebio Olivares DO Primary Care Provider Active Start: September 18, 2024 Heather Bryant CMA Attending Provider Active Start: September 18, 2024 Team Status: Active Member Role Status Dates Eusebio Olivares DO Primary Care Provider Active Start: September 21, 2024 Heather Bryant CMA Attending Provider Active Start: September 21, 2024 Team Status: Active Member Role Status Dates Eusebio Olivares DO Primary Care Provider Active Start: October 05, 2024 Heather Bryant CMA Attending Provider Active Start: October 05, 2024 Team Status: Inactive Member Role Status Dates Eusebio Olivares DO Primary Care Provide r, Attending Provider Active Start: October 14, 2024 End: October 14, 2024 Team Status: Active Member Role Status Dates Eusebio Olivares DO Primary Care Provider Active Start: November 01, 2024 Hector Mann DO Emergency Provider Active Sta rt: November 01, 2024 Judd Jacobs MD Admit Provider, Attending Provider Active Start: November 01, 2024 Team Status: Inactive Member Role Status Dates Eusebio Olivares DO Primary Care Provider Active Start: June 22, 2024 End: June 22, 2024 Dorene Valenzuela MD Admit Provider, Atte nding Provider Active Start: June 22, 2024 End: June 22, 2024 Angel Mejía MD Other Provider Active Start: 2023 End: June 22, 2024 Team Status: Active Member Role Status Dates Eusebio Olivares DO Primary Care Provider Active Start: June 22, 2024 Dorene Valenzuela MD Admit Provider, Other Provider Acti ve Start: June 22, 2024 Angel Mejía MD Attending Provider, Other Provider Active Start: June 22, 2024 Team Status: Active Member Role Status Dates Eusebio Olivares DO Primary Care Provide r, Attending Provider Active Start: June 22, 2024 Team Status: Active Member Role Status Dates Eusebio Olivares DO Primary Care Provider Active Start: July 13, 2024 Nancy Haas MD Attending Provider Active Star t: July 13, 2024 Team Status: Inactive Member Role Status Dates Eusebio Olivares DO Primary Care Provider Active Start: August 01, 2024 End: August 01, 2024 Tenzin Ortiz Jr, MD Emergency Provider Active Start: August 01, 2024 End: August 01, 2024 Team Status: Active Member Role Status Dates Eusebio Olivares DO Primary Care Provider Active Start: September 16, 2024 Romain Rios , DO Emergency Provider Active Start: September 16, 2024 Julio Allen MD Admit Provider Active Start: September 16, 2024 Enrique Kirby DO Attending Provider Active S tart: September 16, 2024 Reina Armijo MD Other Provider Active Start: September 16, 2024 Angel Mejía MD Other Provider Active Start: Leandro luna 2024 Team Status: Active Member Role Status Dates Eusebio Olivares DO Primary Care Provider Active Start: February 10, 2024 Nancy Haas MD Attending Provider Active Star t: February 10, 2024 Team Status: Active Member Role Status Dates Eusebio Olivares DO Primary Care Provider Active Start: February 29, 2024 Thong Woods MD Attending Provider Active St art: February 29, 2024 Team Status: Inactive Member Role Status Dates Eusebio Olivares DO Primary Care Provider Active Start: March 01, 2024 End: March 02, 2024 Robyn Jose DO Emergency Provider Active St art: March 01, 2024 End: March 02, 2024 Isidoro Mesa DO Admit Provider Active Start: March 01, 2024 End: March 02, 2024 Bryce Coy MD Other Provider Active Start: Katrina [email or web address] End: March 02, 2024 DAVION Thorne Other Provider Active Start: March 01, 2024 End: March 02, 2024 Angel Mejía MD Other Provider Active Start: Maura devries 2023 End: March 02, 2024 Nancy Haas MD Other Provider Active Start: Katrina barbara 2023 End: March 02, 2024 Julio Allen MD Attending Provider Active Start: March 01, 2024 End: March 02, 2024 Team Status: Active Member Role Status Dates Eusebio Olivares DO Primary Care Provider Active Start: March 01, 2024 Robyn Jose , Emergency Provider Active St art: March 01, 2024 Isidoro Mesa , Admit Provider Active Start: March 01, 2024 Chung Maria MD Other Provider Active Start: J [email or web address] Bryce Coy MD Attending Provider, Other Provider A ctive Start: March 01, 2024 DAVION Thorne Other Provider Active Start: March 01, 2024 Angel Mejía MD Other Provider Active Start: Ju ly 2023 Nancy Haas MD Other Provider Active Start: J barbara 2023 Team Status: Active Member Role Status Dates Eusebio Olivares DO Primary Care Provider Active Start: March 04, 2024 ROCIO Sharp Attending Provider Active St art: March 04, 2024 Team Status: Inactive Member Role Status Dates Eusebio Olivares DO Primary Care Provider Active Start: March 09, 2024 End: March 10, 2024 Romain iRos DO Emergency Provider Active Start: March 09, 2024 End: March 10, 2024 Kim Renteria MD Admit Provider, Atte nding Provider Active Start: March 09, 2024 End: March 10, 2024 Angel Mejía MD Other Provider Active Start: ly 2023 End: March 10, 2024 Team Status: Active Member Role Status Dates Eusebio Olivares DO Primary Care Provider Active Start: March 09, 2024 Romain Rios DO Emergency Provider Active Start: March 09, 2024 Kim Renteria MD Admit Provider, Other Provider Acti ve Start: March 09, 2024 Angel Mejía MD Attending Provider, Other Provider Active Start: March 09, 2024 Team Status: Active Member Role Status Dates Eusebio Olivares DO Primary Care Provider Active Start: March 11, 2024 Bryce Coy MD Attending Provider Active Star t: March 11, 2024 Team Status: Inactive Member Role Status Dates Eusebio Olivares DO Primary Care Provide r, Attending Provider Active Start: March 19, 2024 End: March 19, 2024 Team Status: Active Member Role Status Dates Eusebio Ball , DO Primary Care Provider Active Start: April 11, 2024 Nancy Haas MD Attending Provider Active Star t: April 11, 2024 Team Status: Inactive Member Role Status Dates Eusebio Olivares DO Primary Care Provide r, Attending Provider Active Start: April 29, 2024 End: April 29, 2024 Team Status: Inactive Member Role Status Dates Eusebio Olivares DO Primary Care Provider Active Start: January 09, 2024 End: January 09, 2024 Romain Mendoza MD Attending Provider Active Start: January 09, 2024 End: January 09, 2024 Team Status: Inactive Member Role Status Dates Eusebio Olivares DO Primary Care Provider Active Start: January 10, 2024 End: January 10, 2024 Angel Mejía MD Attending Provider Active Start : January 10, 2024 End: January 10, 2024 Team Status: Active Member Role Status Laisha Olivares DO Primary Care Provider Active Start: January 11, 2024 Angel Mejía MD Attending Provider Active Start : January 11, 2024 Team Status: Active Member Role Status Laisha Olivares DO Primary Care Provider Active Start: January 13, 2024 Angel Mejía MD Attending Provider Active Start : January 13, 2024 Team Status: Active Member Role Status Laisha Olivares DO Primary Care Provider Active Start: December 11, 2023 Nancy Haas MD Attending Provider Active Star t: December 11, 2023 Team Status: Active Member Role Status Laisha Olivares DO Primary Care Provider Active Start: March 01, 2024 Robyn Jose DO Emergency Provider Active St art: March 01, 2024 Isidoro Mesa DO Admit Provider Active Start: March 01, 2024 Chung Maria MD Attending Provider Active Star t: March 01, 2024 Team Status: Inactive Member Role Status Dates Eusebio Olivares DO Primary Care Provider Active Start: October 17, 2023 End: October 17, 2023 Leslee Orellana APRN Attending Provider Active Start: October 17, 2023 End: October 17, 2023 Team Status: Inactive Member Role Status Dates Eusebio Olivares DO Primary Care Provider Active Start: October 17, 2023 End: October 17, 2023 Romain Mendoza MD Attending Provider Active Start: October 17, 2023 End: October 17, 2023 Team Status: Inactive Member Role Status Dates Eusebio Olivares DO Primary Care Provider Active Start: October 31, 2023 End: October 31, 2023 Romain Mendoza MD Attending Provider Active Start: October 31, 2023 End: October 31, 2023 Team Status: Active Member Role Status Dates Eusebio Olivares DO Primary Care Provider Active Start: October 31, 2023 Romain Mendoza MD Attending Prov ider, Other Provider Active Start: October 31, 2023 Team Status: Active Member Role Status Dates Eusebio Olivares DO Primary Care Provider Active Start: November 10, 2023 Bryce Coy MD Attending Provider Active Star t: November 10, 2023 Team Status: Inactive Member Role Status Dates Eusebio Olivares DO Primary Care Provide r, Attending Provider Active Start: November 14, 2023 End: November 14, 2023 Team Status: Inactive Member Role Status Laisha Olivares DO Primary Care Provider Active Start: November 26, 2023 End: November 26, 2023 Romain Mendoza MD Attending Provider Active Start: November 26, 2023 End: November 26, 2023 Team Status: Active Member Role Status Dates Eusebio Olivares DO Primary Care Provider Active Start: [...] Laisha Olivares DO Primary Care Provider Active Romain Mendoza MD Attending Provider Active Team Status: Active Member Role Status Laisha Olivares DO Primary Care Provider Active Jorje Small MD Attending Provider Active Angel Mejía MD Referring Provider Active Team Status: Inactive Member Role Status Laisha Olivares DO Primary Care Provider Active Angel Mejía MD Attending Provider Active Team Status: Inactive Member Role Status Laisha Olivares DO Primary Care Provider Active Denilson Gomez DO Attending Provider Active Team Status: Inactive Member Role Status Laisha Olivares DO Primary Care Provider Active Romain Mendoza MD Attending Provider Active Angel Mejía MD Other Provider Active Team Status: Inactive Member Role Status Dates Eusebio Ball , DO Primary Care Provider Active Eliezer Grijalva APRN Emergency Provider Active Team Status: Inactive Member Role Status Dates Eusebio Olivares , DO Primary Care Provider Active Kim Renteria MD Admit Provider Active Nargis Benítez RN Other Provider Active Denilson Gomez , DO Other Provider Active Nery Najera MD Other Provider Active Brianna Stewart MD Other Provider Active Elvin Sharma MD Other Provider Active Gerald Gross MD Other Provider Active Tiana Anderson , [facility] Other Provider Active Janine Gonzalez MD Other Provider Active Mathew Glynn MD Other Provider Active Avani Younger MD Other Provider Active Christy Delarosa , [facility] Other Provider Active Jackie Ross MD Other Provider Active Justino Boss MD Attending Provider Active Team Status: Inactive Member Role Status Dates Robyn Jose , DO Emergency Provider Active Eusebio Olivares , DO Primary Care Provider Active Reina Renae , DO Admit Provider Active Nargis Benítez RN Other Provider Active Denilson Gomez , DO Other Provider Active Nery Najera MD Other Provider Active Brianna Stewart MD Other Provider Active Elvin Sharma MD Other Provider Active Gerald Gross MD Other Provider Active Tiana Anderson , [facility] Other Provider Active Janine Gonzalez MD Other Provider Active Mathew Glynn MD Other Provider Active Avani Younger MD Other Provider Active Christy Delarosa , [facility] Other Provider Active Jackie Ross MD Other Provider Active Ross Catherine MD Attending Provider Active Team Status: Inactive Member Role Status Dates Eusebio Olivares , DO Primary Care Provider Active W Rene Gomez , DO Attending Provider Active Angel Mejía MD Other Provider Active Team Status: Inactive Member Role Status Dates Eusebio Olivares , DO Primary Care Provider Active DAVION Zuniga Attending Provider Active Team Status: Inactive Member Role Status Dates Eusebio Olivares , DO Primary Care Provider, Attending Vinay jain Active Team Status: Active Member Role Status Dates Eusebio Olivares , DO Primary Care Provider Active W Rene Gomez , DO Attending Provider Active Team Status: Inactive Member Role Status Dates Eusebio Olivares , DO Primary Care Provider Active Hector Mann DO Emergency Provider Active Team Status: Inactive Member Role Status Dates Eusebio Olivares , DO Primary Care Provider, Attending Pr ovider Active Angel Mejía MD Referring Provider Active Team Status: Active Member Role Status Dates Eusebio Olivares , DO Primary Care Provider Active Angel Mejía MD Attending Provider Active Team Status: Inactive Member Role Status Eusebio Olivares , DO Primary Care Provider Active Jorje Small MD Attending Provider Active Team Status: Inactive Member Role Status Eusebio Olivares , DO Primary Care Provider Active Romain Rios , DO Emergency Provider Active Team Status: Inactive Member Role Status Dates Eusebio Taye , DO Primary Care Provider Active Govind Anderson MD Emergency Provider Active Team Status: Inactive Member Role Status Dates Eusebio Taye , DO Primary Care Provider Active Yobani Hansen , DO Emergency Provider Active Team Status: Inactive Member Role Status Dates Zeus Bradley , DO Emergency Provider Active Eusebio Taye , DO Primary Care Provider Active Shoulder Pad Molder Relationship Specialty Start Date End Date Eusebio Olivares, DO [address] [place] [address] PCP - General Internal Medicine 10/01/21 Team Status: Active Member Role Status Dates Eusebio Olivares , DO Primary Care Provider Active Tenzin Ortiz Jr, MD Emergency Provider Active Isidoro Mesa , DO Admit Provider, Attending Provider Active Team Status: Inactive Member Role Status Eusebio Olivares , DO Primary Care Provider Active Denilson Gomez DO Attending Provider Active Cipriano Stiles MD Other Provider Active Team Status: Inactive Member Role Status Eusebio Olivares , DO Primary Care Provider Active Tenzin Ortiz Jr, MD Emergency Provider Active Isidoro Mesa , DO Admit Provider Active Nancy Haas MD Other Provider Active Law Cano MD Attending Provider Active Team Status: Inactive Member Role Status Eusebio Olivares , DO Primary Care Provider Active Law Cano MD Attending Provider Active Angel Mejía MD Referring Provider Active Shoulder Pad Molder Relationship Specialty Start Date End Date Eusebio Olivares, DO [address] [place] [address] PCP - General Internal Medicine 10/01/21 Team Status: Active Member Role Status Dates Robyn Jose , DO Emergency Provider Active Eusebio Olivares , DO Primary Care Provider Active Reina Renae , DO Admit Provider, Attending Provider Active Team Status: Inactive Member Role Status Dates Eusebio Olivares DO Primary Care Provider Active Law Cano MD Admit Provider Active Jorge Mederos DO Attending Provider Active Brianna Stewart MD Other Provider Active Bryce Coy MD Other Provider Active Shoulder Pad Molder Relationship Specialty Start Date End Date Eusebio Olivares MD [address] [place] [address] PCP - General Internal Medicine 07/18/23 Shoulder Pad Molder Relationship Specialty Start Date End Date Eusebio Olivares MD [address] [place] [address] PCP - General Internal Medicine 07/18/23 Team Status: Inactive Member Role Status Dates Eusebio Olivares DO Attending Provider Active Sta rt: July 16, 2023 End: July 16, 2023 Team Status: Inactive Member Role Status Dates Eusebio Olivares DO Attending Provider Active Sta rt: August 13, 2023 End: August 13, 2023 Team Status: Inactive Member Role Status Dates Eusebio Olivares DO Primary Care Provider Active Start: August 18, 2023 End: August 18, 2023 Law Cano MD Admit Provider Active Start: August 18, 2023 End: August 18, 2023 Jorge Mederos DO Attending Provider Active Start: August 18, 2023 End: August 18, 2023 Brianna Stewart MD Other Provider Active Start: August 18, 2023 End: August 18, 2023 Bryce Coy MD Other Provider Active Start: D ec2022 End: August 18, 2023 Team Status: Inactive Member Role Status Dates Romain Mendoza MD Attending Provider Active Start: August 29, 2023 End: August 29, 2023 Team Status: Inactive Member Role Status Dates Eusebio Olivares DO Primary Care Provider Active Start: August 29, 2023 End: August 29, 2023 Romain Mendoza MD Attending Provider Active Start: August 29, 2023 End: August 29, 2023 Team Status: Active Member Role Status Dates Eusebio Olivares DO Primary Care Provider Active Start: October 01, 2023 Jorje Small MD Active Start: [facility] 2023 Angel Mejía MD Referring Provider Active Start : October 01, 2023 Va Forte APRN Attending Provider Active Start: September Team Status: Inactive Member Role Status Dates Eusebio Olivares DO Primary Care Provider Active Start: October 01, 2023 End: October 01, 2023 Va Forte APRN Attending Provider Active Start: September End: October 01, 2023 Team Status: Inactive Member Role Status Dates Eusebio Olivares DO Primary Care Provider Active Start: October 02, 2023 End: October 02, 2023 Kavya Chapman [facility] Emergency Provider Active Start: October 02, 2023 End: October 02, 2023 Shoulder Pad Molder Relationship Specialty Start Date End Date Eusebio Olivares DO [facility] [address] [place] [address] PCP - General Internal Medicine 12/03/23 Brianna Gomez DO [address] [facility] [address] [place] [address] Consulting Physician Cardiology 12/03/23 Team Status: Active Member Role Status Dates Eusebio Olivares DO Primary Care Provider Active Start: March 09, 2024 Romain Rios DO Emergency Provider Active Start: March 09, 2024 Kim Renteria MD Admit Provider, Atte nding Provider Active Start: March 09, 2024 Shoulder Pad Molder Relationship Specialty Start Date End Date Eusebio Olivares MD [address] [place] [id number] PCP - General Internal Medicine 07/18/23 Shoulder Pad Molder Relationship Specialty Start Date End Date Eusebio Olivares MD [address] [place] [phone] PCP - General Internal Medicine 07/18/23 Shoulder Pad Molder Relationship Specialty Start Date End Date Eusebio Olivares DO PCP - General Internal Medicine 12/03/23 Brianna Gomez DO [address] [facility] [address] [place] [address] Consulting Physician Cardiology 12/03/23 Shoulder Pad Molder Relationship Specialty Start Date End Date Eusebio Olivares MD [address] [facility] [place] [address] PCP - General Internal Medicine 07/18/23 Team Status: Active Member Role Status Dates Eusebio Olivares DO Primary Care Provider Active Start: June 15, 2024 Nancy Haas MD Attending Provider Active Star t: June 15, 2024 Team Status: Active Member Role Status Dates Eusebio Olivares DO Primary Care Provider Active Start: August 28, 2024 Sondra Ruvalcaba , RES Active St art: August 28, 2024 Romain Rios DO Emergency Provider Active Start: August 28, 2024 Dwayne Little DO Admit Provider , Attending Provider Active Start: August 28, 2024 Team Status: Active Member Role Status Dates Eusebio Olivares DO Primary Care Provider Active Start: September 17, 2024 Romain Rios DO Emergency Provider Active Start: September 17, 2024 Julio Allen MD Admit Provider Active Start: September 17, 2024 Angel Mejía MD Other Provider Active Start: [facility] 2024 Toney Riley MD Other Provider Active Start: September 17, 2024 Crow Conte MD Attending Provider, Other Provider Active Start: September 17, 2024 Shoulder Pad Molder Relationship Specialty Start Date End Date Eusebio Olivares DO PCP - General Internal Medicine 12/03/23 Brianna Gomez DO [address] [facility] [address] [place] [address] Consulting Physician Cardiology 12/03/23 Shoulder Pad Molder Relationship Specialty Start Date End Date Eusebio Olivares MD [address] [place] [phone] PCP - General Internal Medicine 12/10/24 Shoulder Pad Molder Relationship Specialty Start Date End Date Eusebio Olivares MD [address] [facility] [place] [address] PCP - General Internal Medicine 12/10/24 Team Status: Active Member Role Status Dates Eusebio Olivares DO Primary Care Provider Active Start: October 12, 2024 Nancy Haas MD Attending Provider Active Star t: October 12, 2024 Team Status: Inactive Member Role Status Dates Eusebio Olivares DO Primary Care Provider Active Start: January 19, 2025 End: January 19, 2025 Denilson Gomez DO Attending Provider Active S tart: January 19, 2025 End: January 19, 2025 Team Status: Inactive Member Role Status Dates Eusebio Olivares DO Primary Care Provider Active Start: January 21, 2025 End: January 21, 2025 Denilson Gomez DO Attending Provider Active S tart: January 21, 2025 End: January 21, 2025 Team Status: Inactive Member Role Status Dates Eusebio Olivares DO Primary Care Provider Active Start: January 12, 2025 End: January 12, 2025 Eusebio Olivares DO Attending Provider Active Sta rt: January 12, 2025 End: January 12, 2025 Team Status: Active Member Role Status Dates Eusebio Olivares DO Primary Care Provider Active Start: January 13, 2025 Bryce Coy MD Attending Provider Active Star t: January 13, 2025 Team Status: Active Member Role Status Dates Eusebio Olivares DO Primary Care Provider Active Start: February 09, 2025 Bryce Coy MD Attending Provider Active Star t: February 09, 2025 Team Status: Inactive Member Role Status Dates Eusebio Olivares DO Primary Care Provider Active Start: April 01, 2025 End: April 01, 2025 Romain Mendoza MD Attending Provider Active Start: April 01, 2025 End: April 01, 2025 Team Status: Active Member Role Status Dates Eusebio Olivares DO Primary Care Provider Active Start: April 01, 2025 Romain Mendoza MD Attending Provider Active Start: April 01, 2025 Goals (unrecognized section and content) Goals may be documented in a n alternate section Source Comments (unrecognize d section and content) In the event this informatio n is protected by the Federal Confidentiality of Alcohol and Drug Abuse Patient Records regulations: The Federal rules restrict any use of the information to criminally investigate or prosecute any alcohol or drug abuse patient.[facility] the event this information is protected by the Federal Confidentiality of Alcohol and Drug Abuse Patient Records regulations: The Federal rules restrict any use of the information to criminally investigate or prosecute any alcohol or drug abuse patient.[facility] (unrecognized sect ion and content) No Status Records FoundNo Status Records FoundNo Status Records FoundNo Status Records FoundNo Status Records FoundNo Status Records FoundNo Status Records FoundNo Status Records FoundNo Status Records FoundNo Status Records Found INFORMATION SOURCE (unrecogn ized section and content) DATE CREATED AUTHOR 08/09/2022 [facility] DATE CREATED AUTHOR AUTHOR'S ORGANIZ ATION 09/11/2022 [facility] DATE CREATED AUTHOR AUTHOR'S ORGANIZ ATION 02/27/2023 [facility] DATE CREATED AUTHOR AUTHOR'S ORGANIZ ATION 02/27/2023 [employer] DATE CREATED AUTHOR AUTHOR'S ORGANIZ ATION 12/03/2023 [place] [facility] DATE CREATED AUTHOR AUTHOR'S ORGANIZ ATION 12/22/2023 [facility] DATE CREATED AUTHOR AUTHOR'S ORGANIZ ATION 12/11/2024 [facility] DATE CREATED AUTHOR AUTHOR'S ORGANIZ ATION 12/27/2024 [facility] DATE CREATED AUTHOR AUTHOR'S ORGANIZ ATION 03/11/2025 [facility] DATE CREATED AUTHOR AUTHOR'S ORGANIZ ATION 04/03/2025 [facility] FOR RECORDS PERTAINING TO PATIENTS [...] BE BASED ON THE PRIMARY CLINICAL RECORDS. [employer] provides no warranty or guarantee of the accuracy or completeness of information in this document.
[2025-04-12 22:11] LABS: Alanine Aminotransferase 14 U/L (16-63); Albumin Globulin Ratio 0.9; Albumin Level 3.9 g/dL (3.4-5.0); Alkaline Phosphatase 66 U/L (46-116); Anion Gap 15.9; Aspartate Amino Transferase 12 U/L (15-37); Blood Urea Nitrogen 20.0 mg/dL (7.0-18.0); Calcium 8.7 mg/dL (8.5-10.1); Carbon Dioxide 28.9 mmol/L (21.0-32.0); Chloride 102 mmol/L (98-107); Estimated GFR (African America 19 (>=60 mL/min/1.73m^2); Estimated GFR (Non-African Ame 16 (>=60 mL/min/1.73m^2); Globulin 4.3 g/dL; Glucose 154 mg/dL (74-106); Lactate/Lactic Acid 0.9 mmol/L (0.4-2.0); Sodium 144 mmol/L (136-145); Total Protein 8.2 g/dL (6.4-8.2)
[2025-04-12 22:12] LABS: Potassium 2.8 mmol/L (3.5-5.1)
[2025-04-12] MEDS: HYDRALAZINE HCL 20 MG/ML VIAL 10 MG IVP (22:15)
[2025-04-12] MEDS: DEXTROSE 10 % IN WATER 1,000 ML 50 ML IV (22:27)
--- NOTE | 2025-04-12 23:38 | XR_ITS ---
The [address] [address] Patient Name: VIKTORIYA TAMAYO MRN: [id number] date: 1985 Sex: M Assigned Patient Location: ER Current Patient Location: Accession/Order Number: [id number] Exam Date: 04/12/2025 23:58 Report Date: 04/13/2025 09:13 At the request of: VIVEK MONTGOMERY DO Procedure: XR chest 1V PORTABLE AP ERECT CHEST 2341 hours CLINICAL HISTORY: hypoxia. Shortness of breath and diaphoresis. Patient on dialysis. COMPARISON: CT 05/14/2024 A large defibrillator pad overlies the lower left chest . The heart is top normal in size. There is slight increase in interstitial markings. Subtle asymmetric hazy density at the left lower lung may be technical however parenchymal change is not excluded. No additional consolidation is seen. There is no sizable effusion or pneumothorax. The osseous structures are intact. XR/XR chest 1V IMPRESSION: MINOR VASCULAR CONGESTION. EQUIVOCAL LEFT BASILAR PARENCHYMAL CHANGE. Impression dictated by: Lesa Coronado M.D. 04/13/2025 9:13 AM Dictation Location: [facility]LOC[facility] Electronically authenticated by: [id number] Date: 04/13/2025 09:13
--- NOTE | 2025-04-12 23:41 | ED.AMS1 ---
HPI - Altered Mental Status General Chief Complaint: Altered Mental Status Stated Complaint: UNRESPONSIVE Time Seen by Provider: 04/12/25 21:36 Source: medical record Mode of arrival: ambulance Limitations: altered mental status Limitations comment: unresponsive Related Data Home Medications ?Medication ?Instructions ?Recorded ?Confirmed aspirin 81 mg chewable tablet 1 tab PO DAILY 04/02/23 06/22/24 atorvastatin 80 mg tablet 80 mg PO DAILY 04/02/23 06/22/24 carvedilol 25 mg tablet 25 mg PO BID 04/02/23 06/22/24 clonidine HCl 0.1 mg tablet mg 04/02/23 clopidogrel 75 mg tablet 75 mg PO DAILY 04/02/23 06/22/24 famotidine 20 mg tablet 20 mg PO .hs 04/02/23 06/22/24 furosemide 40 mg tablet 40 mg PO DAILY 04/02/23 06/22/24 hydralazine 50 mg tablet 50 mg PO TID 04/02/23 02/28/24 insulin glargine 100 unit/mL (3 unit subcut 04/02/23 mL) subcutaneous pen (Lantus Solostar U-100 Insulin) insulin lispro 100 unit/mL subcut 04/02/23 subcutaneous pen (Humalog KwikPen (U-100) Insulin) isosorbide mononitrate 60 mg 60 mg PO BID 04/02/23 02/28/24 tablet,extended release 24 hr loratadine 10 mg tablet 10 mg PO Q24H 04/02/23 02/28/24 omeprazole 40 mg capsule,delayed 40 mg PO DAILY 04/02/23 02/28/24 release escitalopram oxalate 10 mg tablet 10 mg PO DAILY 02/28/24 02/28/24 (Lexapro) Previous Rx's ?Medication ?Instructions ?Recorded peg 3350-electrolytes 236 240 ml PO Q10M #4,000 mL 07/09/23 gram-22.74 gram-6.74 gram-5.86 gram solution (Golytely) hydrocodone 5 mg-acetaminophen 325 1 tab PO Q8H PRN pain 3 days #9 10/01/ mg tablet tabs Allergies Allergy/AdvReac Type Severity Reaction Status Date / Time No Known Drug Allergies Allergy Verified 04/12/25 21:33 PFSH PFSH Social History Smoking status: Current every day smoker Little interest or pleasure in doing things: not at all Feeling down, depressed, or hopeless: not at all Exam Constitutional Vital Signs, click to edit/add: Last Vital Signs Pulse 74 04/13/25 01:04 Resp 16 04/13/25 01:04 BP 194/88 H 04/13/25 01:04 Pulse Ox 100 04/13/25 00:45 O2 Del Method Nasal Cannula 04/13/25 00:45 O2 Flow Rate 3 04/13/25 00:45 Course Course Hospital Course: Patient arrived diaphoretic and altered to the emergency department. Initially, he was unable to provide us with an accurate history. He told the medics his blood sugar was low. Medics registered his blood sugar at 127. When the patient arrived he was found to be low. Patient was given an amp of D50 immediately. Laboratories were drawn. EKG was drawn. Initially had a CT scan of the brain ordered but the patient became alert and that scan was canceled. But, because the patient was hypoxic and that was new for him I did get a chest x-ray which was unremarkable. Patient does have evidence of hypokalemia with a potassium of 2.8. He is on dialysis. Therefore initially I was not going to supplement him with potassium. Patient however is going to receive Lasix and therefore may further drop his potassium. Reevaluation(s) Reevaluation #1: Reevaluated the patient. He has received numerous doses of D50. The patient has been placed on a D10 drip to try to keep his blood sugars up. We are also providing the patient with a meal. Time: 21:40 Reevaluation #2: Patient was reevaluated. We were using the patient's continuous glucose monitor. It actually has been imperative for allowing the staff to determine how rapidly he is dropping. That way, we are able to determine what is the next course of action for this patient. His room nurse has coordinated initially upon arrival with his glucometer and they are consistent so I do feel safe using this as a modality. Blood pressure is markedly improved with hydralazine. Time: 23:00 Reevaluation #3: The nurse and I reevaluated the patient. The patient has a blood sugar again in the 70s and dropping. Nurse encouraged him to eat barney crackers and peanut butter. We are going to increase his D10 to 80 mL an hour. My concern is that the patient has an oxygen saturation is 88%. He is on 2 L O2 nasal cannula which is new for him. He does have evidence of cardiomegaly which appears to be at his baseline. And he has some evidence of peripheral vascular congestion. However, his lung sounds upon auscultation are completely clear. To combat fluid overload being at the patient is a dialysis patient, we are going to give him Lasix 40 mg IV push. Patient does take 40 mg a day. He does still make urine. I also had a lengthy conversation with the patient about depression and the possibility that this may have been an effort to harm himself. He states his insulin bottles are different colors. He took 20 units of his long-acting insulin at his normal time. He states that he would not harm himself that he has 6 kids to care for. Time: 00:12 Consultations Consultation #1: I called and spoke to Dr. Valenzuela. He was concerned that the patient may not be well enough to get him out of the emergency department by later today so that he can attain his outpatient dialysis treatment. Therefore, he recommended that the patient go to [facility]. [facility] was contacted and they are waiting for the hospitalist to call me back. We have been notified that they are boarding people in their own emergency department and so transfer may be delayed until a bed is found. Time: 00:19 Consultation #2: Spoke with Dr. Lopez. He did agree to accept the patient in transfer. He states that there is 9 holes in the emergency department and that our patient would be eligible. He states they are very short on beds. Time: 01:28 Vital Signs Vital signs: Vital Signs Pulse Rate 75 04/12/25 21:36 Respiratory Rate 22 H 04/12/25 21:36 Blood Pressure 215/95 H 04/12/25 21:36 Pulse Rate 74 04/13/25 01:04 Respiratory Rate 16 04/13/25 01:04 Blood Pressure 194/88 H 04/13/25 01:04 Pulse Oximetry 100 04/13/25 00:45 Oxygen Delivery Method Nasal Cannula 04/13/25 00:45 Oxygen Delivery Flow Rate 3 04/13/25 00:45 MDM - Altered Mental Status MDM Narrative Medical decision making narrative: The patient is a 40-year-old male with a history of diabetes mellitus type 1 and end-stage renal disease on hemodialysis. The patient gets his dialysis from [facility] Mondays, Wednesdays, Saturday and he sees Dr. Rich. Patient called EMS on himself because he had low blood sugar. Since the patient's been in the emergency department he has been a very high acuity patient. His nurse has been essentially been a one-on-one patient with him with intermittent assistance with her colleagues. The patient has had numerous doses of D50 ampules. And he was placed on a D10 drip that was titrated throughout his visit. I feel that the patient has required so much nursing attention that is not safe for him to stay here and the patient should be transferred to [facility] to possibly have a stepdown unit or even ICU. The patient then decides that he wants to go home. His room nurse has a very lengthy discussion with him about him leaving AGAINST MEDICAL ADVICE. I went in and talk with the patient at length. He does have capacity at present time to make his own medical decisions, although I think this is a terrible decision. The patient lives alone. And his blood sugar drops very rapidly. Patient states he knows his body better than anybody and that he feels like he is out of the cho. I have told the patient that we have been escalating his care not decreasing it since he has been here. Patient states that he can manage his blood sugars at home he can hear his monitor and take candy and candy bars. He states he also has more food of substance in his own home. And patient is very motivated to go home. Differential Diagnosis Differential diagnosis: Likely alcoholic intoxication, altered mental status, delirium, hypoglycemia, subarachnoid hemorrhage and sepsis Medical Records Attestation: I reviewed the patient's medical records. Lab Data Attestation: I reviewed the patient's lab results. Labs: Lab Results 04/12/25 04/12/25 04/12/25 Range/Units 21:40 22:21 22:36 WBC 4.5 (4.0-11.0) 10^3/uL RBC 3.77 L (4.70-6.10) 10^6/uL Hgb 10.5 L (14.0-18.0) g/dL Hct 33.4 L (42.0-54.0) % MCV 88.6 (80.0-94.0) fL MCH 27.9 (25.9-34.0) pg MCHC 31.4 (29.9-35.2) g/dL RDW 21.6 H (11.0-15.0) % Plt Count 125 L (150-450) 10^3/uL MPV 10.1 (9.5-13.5) fL Neut % (Auto) 65.5 (43.0-75.0) % Lymph % (Auto) 21.6 (20.5-60.0) % [place] % (Auto) 6.7 (1.7-12.0) % Eos % (Auto) 4.7 (0.9-7.0) % Baso % (Auto) 1.3 (0.2-2.0) % Neut # (Auto) 3.0 (1.4-6.5) 10^3/uL Lymph # (Auto) 1.0 L (1.2-3.8) 10^3/uL [place] # (Auto) 0.3 (0.3-0.8) 10^3/uL Eos # (Auto) 0.2 (0.0-0.7) 10^3/uL Baso # (Auto) 0.1 (0.0-0.1) 10^3/uL Abs Immat Gran (auto) 0.01 (0.00-0.03) 10^3/uL Imm/Tot Granulo (auto) 0.2 (0.0-0.5) % Sodium 144 (136-145) mmol/L Potassium 2.8 L* (3.5-5.1) mmol/L Chloride 102 (98-107) mmol/L Carbon Dioxide 28.9 (21.0-32.0) mmol/L Anion Gap 15.9 BUN 20.0 H (7.0-18.0) mg/dL Creatinine 4.20 H (0.70-1.30) mg/dL Est GFR ( Amer) 19 L (>=60 mL/min/1.73m^2) Est GFR (Non-Af Amer) 16 L (>=60 mL/min/1.73m^2) BUN/Creatinine Ratio 4.8 Glucose 154 H (74-106) mg/dL Lactate 0.9 (0.4-2.0) mmol/L Calcium 8.7 (8.5-10.1) mg/dL Total Bilirubin 0.7 (0.2-1.0) mg/dL AST 12 L (15-37) U/L ALT 14 L (16-63) U/L Alkaline Phosphatase 66 (46-116) U/L Troponin I High Sens 74.8 (4.0-76.1) pg/mL Total Protein 8.2 (6.4-8.2) g/dL Albumin 3.9 (3.4-5.0) g/dL Globulin 4.3 g/dL Albumin/Globulin Ratio 0.9 POC Glucose 38 L* 121 H (74-106) mg/dL 04/12/25 04/13/25 Range/Units 23:44 00:42 WBC (4.0-11.0) 10^3/uL RBC (4.70-6.10) 10^6/uL Hgb (14.0-18.0) g/dL Hct (42.0-54.0) % MCV (80.0-94.0) fL MCH (25.9-34.0) pg MCHC (29.9-35.2) g/dL RDW (11.0-15.0) % Plt Count (150-450) 10^3/uL MPV (9.5-13.5) fL Neut % (Auto) (43.0-75.0) % Lymph % (Auto) (20.5-60.0) % [place] % (Auto) (1.7-12.0) % Eos % (Auto) (0.9-7.0) % Baso % (Auto) (0.2-2.0) % Neut # (Auto) (1.4-6.5) 10^3/uL Lymph # (Auto) (1.2-3.8) 10^3/uL [place] # (Auto) (0.3-0.8) 10^3/uL Eos # (Auto) (0.0-0.7) 10^3/uL Baso # (Auto) (0.0-0.1) 10^3/uL Abs Immat Gran (auto) (0.00-0.03) 10^3/uL Imm/Tot Granulo (auto) (0.0-0.5) % Sodium (136-145) mmol/L Potassium (3.5-5.1) mmol/L Chloride (98-107) mmol/L Carbon Dioxide (21.0-32.0) mmol/L Anion Gap BUN (7.0-18.0) mg/dL Creatinine (0.70-1.30) mg/dL Est GFR ( Amer) (>=60 mL/min/1.73m^2) Est GFR (Non-Af Amer) (>=60 mL/min/1.73m^2) BUN/Creatinine Ratio Glucose (74-106) mg/dL Lactate (0.4-2.0) mmol/L Calcium (8.5-10.1) mg/dL Total Bilirubin (0.2-1.0) mg/dL AST (15-37) U/L ALT (16-63) U/L Alkaline Phosphatase (46-116) U/L Troponin I High Sens (4.0-76.1) pg/mL Total Protein (6.4-8.2) g/dL Albumin (3.4-5.0) g/dL Globulin g/dL Albumin/Globulin Ratio POC Glucose 133 H 74 (74-106) mg/dL ECG Data Attestation: I personally reviewed and interpreted this ECG as follows: ECG interpretation date: 04/12/25 ECG interpretation time: 21:32 Interpretation: Twelve-lead EKG reveals a bigeminy type rhythm with a rate of 84 bpm albeit by palpation the PVCs are not perfusing. The WA interval and QRS duration are normal. QTc is not prolonged. [place] beats show criteria for left ventricular hypertrophy EKG is grossly abnormal. Summary: Abnormal EKG. I did compare this to the EKG that was performed via EMS and essentially they are the same. Critical Care Time Critical Care Time Critical Care Time: Yes Total Critical Care Time: 35 Attestation: Critical Care Procedure Note Authorized and Performed by: Ana Luisa Marie DO Total critical care time: 35 min Due to a high probability of clinically significant, life threatening deterioration, the patient required my highest level of preparedness to intervene emergently and I personally spent this critical care time directly and personally managing the patient. This critical care time included obtaining a history; examining the patient; pulse oximetry; ordering and review of studies; arranging urgent treatment with development of a management plan; evaluation of patient's response to treatment; frequent reassessment; and, discussions with other providers. This critical care time was performed to assess and manage the high probability of imminent, life-threatening deterioration that could result in multi-organ failure. It was exclusive of separately billable procedures and treating other patients and teaching time. Please see MDM section and the rest of the note for further information on patient assessment and treatment. Discharge Plan Discharge Stand Alone Forms: Portal Instructions Chief Complaint: Altered Mental Status Clinical Impression: Hypoglycemia, Dialysis patient, Altered mental status, Acute hypokalemia, Left against medical advice Patient Disposition: Left Against Medical Advice Time of Disposition Decision: 01:37 Condition: Fair Mode of Transportation: Private Vehicle Prescriptions / Home Meds: No Action peg 3350-electrolytes [Golytely] 236-22.74-6.74 -5.86 gram recon soln 240 ml PO Q10M Qty: 4000 0RF Rx Instructions: until fecal effluent is clear escitalopram oxalate [Lexapro] 10 mg tablet 10 mg PO DAILY atorvastatin 80 mg tablet 80 mg PO DAILY aspirin 81 mg tablet,chewable 1 tab PO DAILY furosemide 40 mg tablet 40 mg PO DAILY carvedilol 25 mg tablet 25 mg PO BID clonidine HCl 0.1 mg tablet clopidogrel 75 mg tablet 75 mg PO DAILY omeprazole 40 mg capsule,delayed release(DR/EC) 40 mg PO DAILY isosorbide mononitrate 60 mg tablet extended release 24 hr 60 mg PO BID famotidine 20 mg tablet 20 mg PO .hs hydralazine 50 mg tablet 50 mg PO TID loratadine 10 mg tablet 10 mg PO Q24H insulin lispro [Humalog KwikPen Insulin] 100 unit/mL insulin pen SUBCUT insulin glargine [Lantus Solostar U-100 Insulin] 100 unit/mL (3 mL) insulin pen SUBCUT hydrocodone-acetaminophen 5-325 mg tablet 1 tab PO Q8H PRN (Reason: pain) 3 Days Qty: 9 0RF Print Language: Chadian Instructions: Hypoglycemia in a Person with Diabetes (ED), Against Medical Advice (ED) Referrals: Rolando Kothari DO [Primary Care Provider, Internal Medicine] - 1 week
[2025-04-13] MEDS: FUROSEMIDE 40 MG/4 ML VIAL IVP (00:34)
[2025-04-13 00:45] VITALS: BP 160/77; PULSE 61; O2SAT 100
[2025-04-13 01:04] VITALS: BP 194/88; PULSE 74
== END 2025-04-13 01:53 | disposition left against medical advice (07) ==
PROVIDERS: Emergency Provider Emergency Medicine; PCP Internal Medicine
DX: E10.649 Type 1 diabetes mellitus with hypoglycemia without coma (principal); N18.6 End stage renal disease; Z53.29 Procedure and treatment not carried out because of patient's decision for other reasons; Z99.2 Dependence on renal dialysis; Z79.4 Long term (current) use of insulin; F17.200 Nicotine dependence, unspecified, uncomplicated; R09.02 Hypoxemia; E10.22 Type 1 diabetes mellitus with diabetic chronic kidney disease; E87.6 Hypokalemia
CPT/HCPCS: 36415; 71045; 80053; 83605; 84484; 84681; 85025; 96374; 96375; 96376; 99285; J0360; J1938

== ENCOUNTER 2025-06-07 03:35 | Emergency (ER) | payer MEDICARE, MEDICAID, SELFPAY ==
[2025-06-07 03:51] VITALS: BP 169/78; PULSE 59; O2SAT 99; BMI 21.7
--- NOTE | 2025-06-07 04:15 | ED.GENADUL1 ---
HPI HPI - General Adult General Chief complaint: Recheck/Abnormal Lab/Rx Stated complaint: Low blood sugar Time Seen by Provider: 06/07/25 04:08 Source: patient Mode of arrival: ambulance Limitations: no limitations History of Present Illness HPI narrative: IDDM presents with hypoglycemia. States he took his 24 hour insulin last PM and then ate. He unfortunately vomited his meal. Woke up this AM and vomited. BS 50s. Called Squad and transferred to ER. Given peanut butter jelly enroute and this has stayed down. BS now 120s. Not nauseated at this time. No abdominal pain or fever. States he is on transplant list at [facility] for his pancreas and kidneys hemodialysis 3 days a week. Dialysis scheduled for today Related Data Home Medications ?Medication ?Instructions ?Recorded ?Confirmed aspirin 81 mg chewable tablet 1 tab PO DAILY 04/02/23 06/07/25 atorvastatin 80 mg tablet 80 mg PO DAILY 04/02/23 06/07/25 carvedilol 25 mg tablet 25 mg PO BID 04/02/23 06/07/25 clonidine HCl 0.1 mg tablet 0.1 mg PO DAILY 04/02/23 06/07/25 clopidogrel 75 mg tablet 75 mg PO DAILY 04/02/23 06/07/25 famotidine 20 mg tablet 20 mg PO .hs 04/02/23 06/07/25 furosemide 40 mg tablet 40 mg PO DAILY 04/02/23 06/22/24 hydralazine 50 mg tablet 50 mg PO TID 04/02/23 06/07/25 insulin glargine 100 unit/mL (3 unit subcut 04/02/23 mL) subcutaneous pen (Lantus Solostar U-100 Insulin) insulin lispro 100 unit/mL subcut 04/02/23 subcutaneous pen (Humalog KwikPen (U-100) Insulin) isosorbide mononitrate 60 mg 60 mg PO BID 04/02/23 02/28/24 tablet,extended release 24 hr loratadine 10 mg tablet 10 mg PO Q24H 04/02/23 02/28/24 omeprazole 40 mg capsule,delayed 40 mg PO DAILY 04/02/23 06/07/25 release escitalopram oxalate 10 mg tablet 10 mg PO DAILY 02/28/24 06/07/25 (Lexapro) sacubitril 24 mg-valsartan 26 mg 1 tab PO BID 06/07/25 06/07/25 tablet (Entresto) Previous Rx's ?Medication ?Instructions ?Recorded peg 3350-electrolytes 236 240 ml PO Q10M #4,000 mL 07/09/23 gram-22.74 gram-6.74 gram-5.86 gram solution (Golytely) hydrocodone 5 mg-acetaminophen 325 1 tab PO Q8H PRN pain 3 days #9 10/01/ mg tablet tabs Allergies Allergy/AdvReac Type Severity Reaction Status Date / Time ticagrelor (From Brilinta) Allergy breathing Verified 06/07/25 04:05 difficulty Opioid HPI Opioid Management Most Recent Opioid Data: Last Pain Scale 8 06/22/24, 08:26 Review of Systems ROS Status of ROS 10 or more systems reviewed and unremarkable except as noted in history and below [facility], [facility] Social History Smoking status: Current every day smoker Little interest or pleasure in doing things: not at all Feeling down, depressed, or hopeless: not at all Exam Constitutional Vital Signs, click to edit/add: Last Vital Signs Pulse 59 L 06/07/25 03:51 Resp 16 06/07/25 03:51 BP 169/78 H 06/07/25 03:51 Pulse Ox 99 06/07/25 03:51 O2 Del Method Room Air 06/07/25 03:51 Common normals: no apparent distress, average body habitus, oriented x3, no limitations, healthy appearing, alert and well nourished [facility] Common normals: normocephalic and head/scalp atraumatic Eye Common normals: EOMs intact bilaterally and conjunctivae normal Respiratory Common normals: normal respiratory effort, no retractions, no use of accessory muscles and clear to auscultation bilaterally Cardio Common normals: regular rate, regular rhythm, S1 normal heart sound and S2 normal heart sound GI Common normals: Normal to inspection, nondistended, normoactive bowel sounds present, soft to palpation and non-tender Extremity Common normals: normal to inspection and full ROM Neuro Common normals: oriented x3, CN's II-XII intact bilaterally, moves all extremities and no focal motor deficits Psych Appearance: grossly normal Course Vital Signs Vital signs: Vital Signs Pulse Rate 59 L 06/07/25 03:51 Respiratory Rate 16 06/07/25 03:51 Blood Pressure 169/78 H 06/07/25 03:51 Pulse Oximetry 99 06/07/25 03:51 Oxygen Delivery Method Room Air 06/07/25 03:51 Pulse Rate 59 L 06/07/25 03:51 Respiratory Rate 16 06/07/25 03:51 Blood Pressure 169/78 H 06/07/25 03:51 Pulse Oximetry 99 06/07/25 03:51 Oxygen Delivery Method Room Air 06/07/25 03:51 Medical Decision Making MDM Narrative Medical decision making narrative: IDDM. hemodialysis patient. Took his scheduled long acting insulin and later vomited. Became hypoglycemic. Given peanut butter and jelly by squad that stayed down. able to eat snacks here. BS remained over 100 and checked several times. labs demonstrated renal failure with creat 7.83. He is scheduled for dialysis this AM. Has no respiratory symptoms and his chest is clear. Given another snack at discharge and is to follow up with his doctor this week and leave here to go to dialysis Lab Data Labs: Lab Results 06/07/25 06/07/25 06/07/25 Range/Units 03:44 04:32 05:03 WBC 5.5 (4.0-11.0) 10^3/uL RBC 4.49 L (4.70-6.10) 10^6/uL Hgb 12.9 L (14.0-18.0) g/dL Hct 41.0 L (42.0-54.0) % MCV 91.3 (80.0-94.0) fL MCH 28.7 (25.9-34.0) pg MCHC 31.5 (29.9-35.2) g/dL RDW 16.1 H (11.0-15.0) % Plt Count 119 L (150-450) 10^3/uL MPV 10.1 (9.5-13.5) fL Neut % (Auto) 75.6 H (43.0-75.0) % Lymph % (Auto) 10.8 L (20.5-60.0) % [place] % (Auto) 6.4 (1.7-12.0) % Eos % (Auto) 5.5 (0.9-7.0) % Baso % (Auto) 1.3 (0.2-2.0) % Neut # (Auto) 4.1 (1.4-6.5) 10^3/uL Lymph # (Auto) 0.6 L (1.2-3.8) 10^3/uL [place] # (Auto) 0.4 (0.3-0.8) 10^3/uL Eos # (Auto) 0.3 (0.0-0.7) 10^3/uL Baso # (Auto) 0.1 (0.0-0.1) 10^3/uL Abs Immat Gran (auto) 0.02 (0.00-0.03) 10^3/uL Imm/Tot Granulo (auto) 0.4 (0.0-0.5) % Sodium 137 (136-145) mmol/L Potassium 3.8 (3.5-5.1) mmol/L Chloride 98 (98-107) mmol/L Carbon Dioxide 26.8 (21.0-32.0) mmol/L Anion Gap 16.0 BUN 48.0 H (7.0-18.0) mg/dL Creatinine 7.83 H* (0.70-1.30) mg/dL Est GFR ( Amer) 9 L (>=60 mL/min/1.73m^2) Est GFR (Non-Af Amer) 8 L (>=60 mL/min/1.73m^2) BUN/Creatinine Ratio 6.1 Glucose 127 H (74-106) mg/dL Calcium 8.7 (8.5-10.1) mg/dL Urine Color Lt. yellow (YELLOW) Urine Clarity Clear (CLEAR) Urine pH 7.0 (5.0-9.0) Ur Specific [place] 1.015 (1.005-1.025) Urine Protein >=300 A (NEG/TRACE) mg/dL Urine Glucose (UA) 500 A (NEGATIVE) mg/dL Urine Ketones Negative (NEGATIVE) mg/dL Urine Occult Blood Small A (NEGATIVE) Urine Nitrite Negative (NEGATIVE) Urine Bilirubin Negative (NEGATIVE) Urine Urobilinogen 0.2 (0.2-1.0) EU/dL Ur Leukocyte Esterase Negative (NEGATIVE) Urine RBC 2-5 A (0-2) #/HPF Urine WBC 2-5 A (NONE SEEN) #/HPF Ur Squamous Epith Cells Few A (NONE/RARE) #/LPF Urine Crystals None seen (None Seen) #/HPF Urine Bacteria None seen (NONE SEEN) #/HPF Urine Casts None seen (NONE SEEN) #/LPF Urine Mucus None seen (NONE SEEN) Ur Culture Indicated? No POC Glucose 104 (74-106) mg/dL 06/07/25 Range/Units 05:09 WBC (4.0-11.0) 10^3/uL RBC (4.70-6.10) 10^6/uL Hgb (14.0-18.0) g/dL Hct (42.0-54.0) % MCV (80.0-94.0) fL MCH (25.9-34.0) pg MCHC (29.9-35.2) g/dL RDW (11.0-15.0) % Plt Count (150-450) 10^3/uL MPV (9.5-13.5) fL Neut % (Auto) (43.0-75.0) % Lymph % (Auto) (20.5-60.0) % [place] % (Auto) (1.7-12.0) % Eos % (Auto) (0.9-7.0) % Baso % (Auto) (0.2-2.0) % Neut # (Auto) (1.4-6.5) 10^3/uL Lymph # (Auto) (1.2-3.8) 10^3/uL [place] # (Auto) (0.3-0.8) 10^3/uL Eos # (Auto) (0.0-0.7) 10^3/uL Baso # (Auto) (0.0-0.1) 10^3/uL Abs Immat Gran (auto) (0.00-0.03) 10^3/uL Imm/Tot Granulo (auto) (0.0-0.5) % Sodium (136-145) mmol/L Potassium (3.5-5.1) mmol/L Chloride (98-107) mmol/L Carbon Dioxide (21.0-32.0) mmol/L Anion Gap BUN (7.0-18.0) mg/dL Creatinine (0.70-1.30) mg/dL Est GFR ( Amer) (>=60 mL/min/1.73m^2) Est GFR (Non-Af Amer) (>=60 mL/min/1.73m^2) BUN/Creatinine Ratio Glucose (74-106) mg/dL Calcium (8.5-10.1) mg/dL Urine Color (YELLOW) Urine Clarity (CLEAR) Urine pH (5.0-9.0) Ur Specific [place] (1.005-1.025) Urine Protein (NEG/TRACE) mg/dL Urine Glucose (UA) (NEGATIVE) mg/dL Urine Ketones (NEGATIVE) mg/dL Urine Occult Blood (NEGATIVE) Urine Nitrite (NEGATIVE) Urine Bilirubin (NEGATIVE) Urine Urobilinogen (0.2-1.0) EU/dL Ur Leukocyte Esterase (NEGATIVE) Urine RBC (0-2) #/HPF Urine WBC (NONE SEEN) #/HPF Ur Squamous Epith Cells (NONE/RARE) #/LPF Urine Crystals (None Seen) #/HPF Urine Bacteria (NONE SEEN) #/HPF Urine Casts (NONE SEEN) #/LPF Urine Mucus (NONE SEEN) Ur Culture Indicated? POC Glucose 118 H (74-106) mg/dL Discharge Plan Discharge Chief Complaint: Recheck/Abnormal Lab/Rx Clinical Impression: Hypoglycemia Patient Disposition: Home, Self-Care Prescriptions / Home Meds: No Action peg 3350-electrolytes [Golytely] 236-22.74-6.74 -5.86 gram recon soln 240 ml PO Q10M Qty: 4000 0RF Rx Instructions: until fecal effluent is clear escitalopram oxalate [Lexapro] 10 mg tablet 10 mg PO DAILY atorvastatin 80 mg tablet 80 mg PO DAILY aspirin 81 mg tablet,chewable 1 tab PO DAILY furosemide 40 mg tablet 40 mg PO DAILY carvedilol 25 mg tablet 25 mg PO BID clonidine HCl 0.1 mg tablet 0.1 mg PO DAILY Rx Instructions: only if needed at dialysis clopidogrel 75 mg tablet 75 mg PO DAILY omeprazole 40 mg capsule,delayed release(DR/EC) 40 mg PO DAILY isosorbide mononitrate 60 mg tablet extended release 24 hr 60 mg PO BID famotidine 20 mg tablet 20 mg PO .hs hydralazine 50 mg tablet 50 mg PO TID loratadine 10 mg tablet 10 mg PO Q24H insulin lispro [Humalog KwikPen Insulin] 100 unit/mL insulin pen SUBCUT insulin glargine [Lantus Solostar U-100 Insulin] 100 unit/mL (3 mL) insulin pen SUBCUT hydrocodone-acetaminophen 5-325 mg tablet 1 tab PO Q8H PRN (Reason: pain) 3 Days Qty: 9 0RF sacubitril-valsartan [Entresto] 24-26 mg tablet 1 tab PO BID Print Language: [place] Instructions: Hypoglycemia in a Person with Diabetes (ED) Additional Instructions: follow up with your doctor this week Referrals: Rolando Kothari DO [Primary Care Provider, Internal Medicine] - 1 week
--- OUTSIDE RECORDS SUMMARY | 2025-06-07 04:18 | XMS_ITS | CCD ---
Author Organization [facility] Care Team Providers Care Roentgenologist Name Role Phone Eusebio Olivares Unavailable Unavailable Unavailable Angel Mejía Unavailable DO Eusebio Olivares Primary Care Provider DO Denilson Gomez Attending Provider MD Angel Mejía Attending Provider DO Eusebio Olivares Attending Provider Nancy Haas Unavailable DO Eusebio Olivares Primary Care Provider MD Angel Mejía Referring Provider [phone] DO Hector Mann Emergency Provider MD Angel Mejía Attending Provider MD Jorje Small Attending Provider [phone] MD Jorje Small Attending Provider [phone] MD Jorje Small Attending Provider [phone] DO Romain Roy Emergency Provider MD Govind Chang Emergency Provider [phone] DO Eusebio Olivares Primary Care Provider [phone] MD Angel Mejía Referring Provider DO Yobani Hansen Emergency Provider [phone] DO Eusebio Olivares Primary Care Provider DO Hector Mann Emergency Provider MD Angel Mejía Attending Provider MD Jorje Small Attending Provider DO Romain Roy [facility] MD Angel Seymour Referring Provider MD Govind Anderson Emergency Provider DO Yobani Hansen Emergency Provider [phone] DO Eusebio Olivares Primary Care Provider DO Zeus Bradley Emergency Provider [phone] Eusebio Olivares DO Primary Care Provider BRITTNI PAGAN Attending Unavailable EUSEBIO OLIVARES Primary Care Unavailable ZITA ALLEN Attending Unavailable EUSEBIO OLIVARES Primary Care Unavailable DO Eusebio Olivares Primary Care Provider MD Jorje Small Attending Provider MD Angel Mejía Attending Provider DO Denilson Gomez Attending Provider [phone] MD Cipriano Stiles Other Provider MD Tenzin Ortiz Jr Emergency Provider DO Isidoro Mesa Admit Provider DO Isidoro Mesa Attending Provider MD Nancy Haas Other Provider MD Law Cano Attending Provider DO Eusebio Olivares Primary Care Provider EUSEBIO OLIVARES Primary Care Physician DO Eusebio Olivares Primary Care Provider MD Angel Mejía Referring Provider MD Jorje Small Attending Provider [phone] ADILSON VO Primary Care Unavailable MARSHALL, DR MARSHALL Attending Unavailable BALL, DR MARSHALL Admitting Unavailable BALL, DR MARSHALL Attending Unavailable BALL, DR MARSHALL Consulting Unavailable BALL, DR MARSHALL Admitting Unavailable VO, DR ADILSON Arreguin Primary Care Unavailable WEST, DR JEREL Miller Consulting Unavailable JOYCE, ANGEL Admitting Unavailable VO, DR ADILSON Arreguin Primary Care Unavailable JOYCE, ANGEL Attending Unavailable MD Jorje Small Attending Provider MD Romain Mendoza Attending Provider DO Eusebio Olivares Primary Care Provider DO Eusebio Olivares Primary Care Provider MD Angel Mejía Attending Provider [phone] DO Mickey Gr Emergency Provider DO Reina Renae Admit Provider DO Reina Renae Attending Provider TERE Benítez Other Provider Unavailable DO Denilson Gomez Other Provider MD Nery Najera Other Provider MD Brianna Stewartrick Other Provider MD Iraida Byrd Other Provider MD Gerald Gross Other Provider JOSH Bob Other Provider MD Janine Gonzalez Other Provider MD David Glynnammed Nakirk Other Provider MD Avani Younger Other Provider [place] [facility] Christy Almaraz Other Provider MD Jackie Ross Other Provider MD Ross Catherine Attending Provider DO Eusebio Olivares Primary Care Provider Romain Mendoza Unavailable Unavailable Unavailable Eusebio Olivares Unavailable Zina Chilsd Unavailable DO Eusebio Olivares Primary Care Provider MD Angel Mejía Attending Provider MD Jorje Small Attending Provider [phone] MD Angel Mejía Referring Provider MD Romain Mendoza Attending Provider DO Mickey Gr Emergency Provider DO Reina Renae Admit Provider TERE Benítez Other Provider Unavailable DO Denilson Gomez Other Provider MD Nery Najera Other Provider MD Brianna Stewart Other Provider MD Iraida Byrd Other Provider MD Gerald Gross Other Provider JOSH Bob Other Provider MD Janine Gonzalez Other Provider [facility] Other Provider MD Avani Younger Other Provider [place] [facility] [place]- Christy Almaraz Other Provider MD Jackie Ross Other Provider MD Ross Catherine Attending Provider [phone] DO Denilson Gomez Attending Provider [phone] DAVION Childs Attending Provider DO Eusebio Olivares Primary Care Provider MD Angel Mejía Attending Provider MD Angel Mejía Other Provider MD Romain Mendoza Attending Provider JOSH Grijalva Emergency Provider DO Eusebio Olivares Primary Care Provider MD Angel Mejía Attending Provider MD Kim Renteria Admit Provider TERE Benítez Other Provider Unavailable Jason, DO W Rene Other Provider MD Neyr Najera Other Provider MD Brianna Stewart Other Provider MD Iraida Byrd Other Provider MD Gerald Gross Other Provider JOSH Bob Other Provider MD Janine Gonzalez Other Provider MD Mathew Glynn Najemel Other Provider MD Avani Younger Other Provider [place] [facility] Christy Almaraz Other Provider MD Jackie Ross Other Provider MD Justino Boss Attending Provider Dr. Eusebio Olivares Primary Care Guzman Gomez, Dr. Brianna López Referring Unava ilmartina Olivares, Dr. Eusebio La Primary [facility] [place] Guzman Gomez, Dr. Brianna López Attending Fernando ilmartina Gomez, Dr. Brianna López Attending Ericava ilmartina Olivares, Dr. Eusebio La Primary Care Guzman Gomez, Dr. Brianna López Referring Ericava ilmartina Olivares, Dr. Eusebio La Primary [facility] [place] Guzman Gomez, Dr. Brianna López Attending Fernando ilmartina Gomez, Dr. Brianna López Referring Unava ilmartina Olivares, Dr. Eusebio La Primary Care Guzman Gomez, Dr. Brianna López Referring Unava ilable Jason, Dr. Brianna López Attending Ericava ilmartina Gomez, Dr. Brianna López Attending Fernando ilmartina Olivares, Dr. Eusebio La Primary Care Guzman Olivares, Dr. Eusebio La Primary [facility] [place] Guzman Gomez, Dr. Brianna López Attending Ericava ilmartina Olivares, Dr. Eusebio La Primary [facility] [place] Guzman Olivares, Dr. Eusebio La [facility] DO Eusebio Meadows Primary Care Provider MD Angel Mejía Attending Provider DO Denilson Gomez Attending Provider MD Angel Mejía Other Provider MD Jorje Small Attending Provider [phone] MarshallDO Marshall Primary Care Provider MD Romain Mendoza Attending Provider [phone] MD Jorje Small Attending Provider [phone] DO Eusebio Olivares Primary Care Provider DO Eusebio Olivares Primary Care Provider MD Angel Mejía Referring Provider [phone] MD Romain Mendoza Attending Provider DO Eusebio Olivares Primary Care Provider MD Romain Mendoza Attending Provider [phone] DO Eusebio Olivares Primary Care Provider MD Romain Mendoza Attending Provider [phone] MD Law Cano Admit Provider DO Jorge Mederos Attending Provider MD Brianna Stewart Other Provider MD Bryce Coy Other Provider Eusebio Olivares MD Primary Care Provider DO Eusebio Olivares Primary Care Provider MD Romain Mendoza Attending Provider MD Angel Mejía Referring Provider JOSH Forte Attending Provider Ari SKIDDER DRIVER- Kavya E Emergency Provider [phone] DO Eusebio Olivares Primary Care Provider MD Law Cano Admit Provider DO Jorge Mederos Attending Provider MD Brianna Stewart Other Provider MD Bryce Coy Other Provider MD Romain Mendoza Attending Provider MD Angel Mejía Referring Provider Negritajameel AMUSEMENT MACHINE MECHANIC Va Camilo Attending Provider Ari, [facility] [place]- Kavya E Emergency Provider DO Eusebio Olivares Primary Care Provider Mickey GUERIN Attending Unavailable Eusebio Olivares DO Primary Care Provider Brianna Gomez DO Unavailable DO Eusebio Olivares Primary Care Provider [phone] MD Romain Mendoza Attending Provider MD Angel Mejía Attending Provider DO Eusebio Olivares Primary Care Provider DO Mickey Gr M Emergency Provider DO Isidoro Mesa Admit Provider MD [facility] Attending Provider MD Bryce Coy Other Provider DAVION Su Other Provider Unavailable MD Angel Mejía Other Provider MD Nancy Haas Other Provider MD Julio Allen Attending Provider DO Romain Roy Emergency Provider Ericavai MD Kim Owusu Admit Provider MD Kim Renteria Attending Provider DO Eusebio Olivares Primary Care Provider Eusebio Olivares DO Primary Care Provider Eusebio Olivares DO Primary Care Provider Dorene Valenzuela MD Admit Provider Dorene Valenzuela MD Attending Provider [phone] Angel Mejía MD Other Provider Tenzin Ortiz MD Emergency Provider Donna Shaw APRN Emergency Provider Romain Roy DO Emergency Provider Unavai lable Lindbloom DO, Dwayne Admit Provider Lindbloom DO, Dwayne Attending Provider Law Cano MD Attending Provider Julio Allen MD Admit Provider Enrique Kirby DO Attending Provider Reina Armijo MD Other Provider Eusebio Olivares DO Primary Care Provider Dorene Valenzuela MD Admit Provider Dorene Valenzuela MD Attending Provider nAgel Mejía MD Other Provider Tenzin Ortiz MD Emergency Provider Donna Shaw APRN Emergency Provider Romain Roy DO Emergency Provider Unavai donavanpaulino Keonbloom DO, Dwayne Admit Provider Law Cano MD Attending Provider [phone] Julio Allen MD Admit Provider Toney Riley MD Attending Provider Crow Conte MD Other Provider Eusebio Olivares DO Primary Care Provider Angel Mejía MD Other Provider Toney Riley MD Attending Provider Crow Conte MD Other Provider Eusebio Olivares DO Primary Care Provider Tenzin Ortiz MD Emergency Provider Donna Shaw APRN Emergency Provider Romain Roy DO Emergency Provider Guzman Little DO, Dwayne Admit Provider Law Cano MD Attending Provider Joyce MOLINA, Angel Other Provider Alejandro MOLINA, Julio Arreguin Admit Provider Rosemary MOLINA, Toney Attending Provider [phone] Dg MOLINA, Crow Other Provider Zeus Bradley DO Emergency Provider [phone] Eusebio Olivares DO Primary Care Provider Hector Mann DO Emergency Provider [phone] Judd Jacobs MD Admit Provider [phone] Judd Jacobs MD Attending Provider Bryce Coy MD Other Provider Georges ANTHONY-C, Samra Other Provider Unavailable Samina MOLINA, Nancy Other Provider Eusebio Olivares DO Primary Care Provider Brianna Gomez DO Unavailable Eusebio Olivares MD Primary Care Provider DAVID BERG Attending Unavailable DAVID BERG Attending Unavailable DAVID BERG Attending Unavailable DAVID BERG Attending Unavailable Eusebio Olivares DO Primary Care Provider [phone] Law Cano MD Attending Provider [phone] Angel Mejía MD Other Provider Mickey Gr DO Emergency Provider STEPHEN LOU Referring Unavailable LUCERO GUZMAN Attending Unavailable YESIKA CARDENAS Attending Unavailable STEPHEN LOU Attending Unavailable RATNAM, JO Referring Unavailable SINHA, MARIS Attending Unavailable MOUKARBEL, STEPHEN Admitting Unavailable MOUKARBEL, STEPHEN Attending Unavailable MOUKARBEL, STEPHEN Attending Unavailable THERESA, YESIKA Referring Unavailable MOUKARBEL, STEPHEN Referring Unavailable RATNAM, JO Referring Unavailable MOUKARBEL, STEPHEN Referring Unavailable MOUKARBEL, STEPHEN Referring Unavailable THERESA, YESIKA Referring Unavailable THERESA, YESIKA Attending Unavailable Johnathan GORDON, Hector Emergency Provider Unavailable Denilson Gomez DO Attending Provider Eusebio Olivares DO Primary Care Provider Eusebio Olivares DO Attending Provider Bryce Coy MD Attending Provider Romain Mendoza MD Attending Provider [phone] Eusebio Olivares DO Primary Care Provider Nancy Haas MD Attending Provider Va Forte APRN Attending Provider Romain Mendoza MD Other Provider Eusebio Olivares DO Primary Care Provider BRIANNA GOMEZ Referring Unavailable EUSEBIO OLIVARES Primary Care Unavailable Eusebio Olivares DO Primary Care Provider [phone] Bryce Coy MD Attending Provider [phone] Angel Mejía MD Attending Provider Heather Bryant CMA Attending Provider Unavaila ble Eusebio Olivares DO Attending Provider [phone] Choujacordelia GORDON, Bessal N Emergency Provider Dwayne Little DO Admit Provider Nadeen Grant MD Attending Provider BRIANNA GOMEZ Attending Unavailable BRIANNA GOMEZ Referring Unavailable EUSEBIO OLIVARES E Primary Care Unavailable BRIANNA GOMEZ Attending Unavailable BRIANNA GOMEZ Referring Unavailable MARSHALL, EUSEBIO E Primary Care Unavailable BRIANNA GOMEZ Attending Unavailable BRIANNA GOMEZ Referring Unavailable MARSHALL EUSEBIO E Primary Care Unavailable Eusebio Olivares DO Primary Care Provider Anneliese MOLINA, Bryce Attending Provider Tenzin Ortiz MD Emergency Provider Allyson Munoz MD Emergency Provider Adrian Noland MD Admit Provider Adrian Noland MD Attending Provider Eusebio Olivares DO Primary Care Provider Angel Mejía MD Attending Provider [phone] Nancy Haas MD Attending Provider Romain Mendoza MD Attending Provider [phone] Anneliese MOLINA, Bryce Attending Provider Va Forte APRN Attending Provider Romain Mendoza MD Other Provider Heather Bryant CMA Attending Provider Unavaila ble Eusebio Olivares DO Attending Provider Choujaa , Nidal N Emergency Provider Dwayne Little DO Admit Provider Nadeen Grant MD Attending Provider Tenzin Ortiz MD Emergency Provider [phone] Allyson Munoz MD Emergency Provider Ludin MOLINA, Adrian A Admit Provider Chung Maria MD Attending Provider Brianna Gomez DO Unavailable Eusebio Olivares DO Primary Care Provider Heather Berg RN Unavailable Unavailable Eusebio Olivares Primary Care Unavailable Denilson Gomez Attending Unavailable Denilson Gomez Admitting Unavailable Eusebio Olivares Primary Care Unavailable Joyce, Angel Consulting Unavailable Julio Allen Admitting Unavailab Toney Massey Attending Unavailable Conte, Basem Consulting Unavailable Eusebio Olivares Primary Care Unavailable Joyce, Angel Consulting Unavailable Lindagustínm, Dwayne Admitting Unavailabl e Law Cano Attending Unavailable Ball Eusebio Primary Care Unavailable Bryce Coy Consulting Unavailable aLw Cano Attending Unavailable Judd Jacobs Admitting Unavailable Samra Su Consulting Unavailable Joyce, Angel Consulting Unavailable Nancy Haas Consulting Unavailable Ball, Eusebio Primary Care Unavailable Nadeen Grant Attending Unavailable Anabel, Dwayne Admitting Unavailabl e MassDorene munoz Attending Unavailable MassTyson munozik Admitting Unavailable Ball, Eusebio Primary Care Unavailable Joyce, Angel Consulting Unavailable Ball, Eusebio Primary Care Unavailable Adrian Noland Admitting Unavailable Chung Maria Attending Unavailable Nargis Benítez Consulting Unavailable Nargis Benítez Consulting Unavailable Denilson Gomez Consulting Unavailable NajeraNery camacho Consulting Unavailable TraboulIraida urban Consulting Unavailable Tiana Anderson Consulting Unavailable Janine Gonzalez Consulting Unavailable Christy Delarosa Consulting Unavailable Romain Mendoza Admitting Unavailabl e Ball, Eusebio Primary Care Unavailable Romain Mendoza Attending Unavailabl e Ball, Eusebio Primary Care Unavailable Donna Shaw Attending Unavailable Donna Shaw Admitting Unavailable Ball, Eusebio Primary Care Unavailable Zeus Bradley Attending Unavailable Zeus Bradley Admitting Unavailable Mickey Gr Attending Unavailable Mickey Gr Admitting Unavailable Ball, Eusebio Primary Care Unavailable Ball, Eusebio Primary Care Unavailable Tenzin Ortiz Jr Attending Unavailable Tenzin Ortiz Jr Admitting Unavailable Ball, Eusebio Primary Care Unavailable Tenzin Ortiz Jr Attending Unavailable Tenzin Ortiz Jr Admitting Unavailable Ball, Eusebio Primary Care Unavailable Denilson Gomez Attending Unavailable Denilson Gomez Admitting Unavailable Ball, Eusebio Primary Care Unavailable Romain Mendoza Attending Unavailabl e Romain Mendoza Admitting Unavailabl e CARMEN ROWLAND Attending Unavailable BALL, EUSEBIO E Primary Care Unavailable VARSHA MCDONNELL Attending Unavailab BRIANNA Randle Referring Unavailable CHAITANYA SAAVEDRA Referring Unavailable BALL, EUSEBIO E Primary Care Unavailable Allergies Allergy Classification Reported Allergen(s) Allergy Type Date of Onset Reaction(s) Facility (3 sources) patient allergy list reviewed by nurse or physicia Propensity to adverse reactions 07-18-201 9 Comment:[facility] [place] Other (1 source) No Known Medication Allergies; Translations: [No Known Medication Allergies] Propensity to adverse reactions (disorder) [facility] Repository (10 sources) Ticagrelor; Translations: [TICAGRELOR] Drug Allergy 4 Shortness of breath [facility] (3 sources) Ticagrelor Propensity to adverse reactions 4 Shortness of breath [facility] (1 source) Ticagrelor Drug Allergy 5 [facility] Repository Medications Current Medications Medication Drug Class(es) Dates Sig (Normalized) Sig (Original) acetaminophen 500 mg oral tablet (20 sources) Start: 09-02-2024 acetaZOLAMIDE 250 mg oral tablet (2 sources) Carbonic Anhydrase Inhibitor take 1 tablet by mouth every twenty-four hours acetaZOLAMIDE 250 MG 1 tablet Orally Once a day Active aspirin 81 mg chewable tablet (20 sources) Platelet Aggregation Inhibitor, Nonsteroidal Anti-inflammatory Drug Start: 11-17-2021 End: 09-29-2025 aspirin 81 mg chewable tablet Indications: ASHD (arteriosclerotic heart disease) Chew 1 tablet (81 mg) once daily. 90 tablet 3 09/29/2024 09/29/2025 Active take 1 tablet by mouth once maxim y Aspirin 81 81 MG 1 tablet Orally Once a day Active take 1 tablet by mouth once maxim y Aspirin 81 MG Oral Tablet Delayed Release TAKE 1 TABLET DAILY. Quantity: 90 Refills: 3 Ordered: 26-Feb-2023 Brianna Gomez DO Active atorvastatin 80 mg oral tablet (20 sources) HMG-CoA Reductase Inhibitor Start: 01-13-2025 take 1 tablet by mouth once daily atorvastatin (Lipitor) 80 mg tablet Indications: Hyperlipidemia, unspecified hyperlipidemia type TAKE 1 TABLET BY MOUTH EVERY NIGHT 90 tablet 3 01/13/2025 Active Start: 11-17-2021 End: 09-16-2024 Start: 08-08-2021 End: 11-18-2021 Basaglar KwikPen (2 sources) Start: 08-29-2022 Basaglar KwikP en [...] Meter (Accu-Ch ek Guide Glucose Meter) misc (20 sources) Start: 01-08-2025 Blood-Glucose Meter (Accu-Chek Guide Glucose Meter) misc Active 0 .ROUTE .COMPLEX January 08, 2025 1:12pm USE DIRECTED Start: [...] directed Blood-Glucose Meter,Continuo us (Freestyle Ramy 3 [place]) misc (20 sources) Start: 03-19-2024 Blood-Glucose Meter,Continuous (Freestyle Ramy 3 [place]) misc Active 0 .ROUTE .MEDSUPPLY March 18, 2024 11:00pm As directed Start: 03-19-2024 Blood-Glucose Meter,Continuous (Freestyle Ramy 3 [place]) misc Active 0 .ROUTE .MEDSUPPLY March 19, 2024 12:00am As directed Start: 03-02-2024 End: 10-15-2024 Blood-Glucose Meter,Continuo us (Freestyle Ramy 3 [place]) misc Discontinued 0 .Route March 02, 2024 12:00am October 15, 2024 8:46pm As directed Start: 03-02-2024 Blood-Glucose Meter,Continuous (Freestyle Ramy 3 [place]) misc Active 0 .Route 1 March 01, 2024 11:00pm As directed Start: 03-02-2024 Blood-Glucose Meter,Continuous (Freestyle Ramy 3 [place]) misc Active 0 .Route 1 March 02, 2024 12:00am As directed Blood-Glucose Sensor (Freest yle Ramy 3 Plus Sensor) device (20 sources) Start: 05-17-2024 Blood-Glucose Sensor (Freestyle Ramy 3 Plus Sensor) device Active 0 .ROUTE .MEDSUPPLY May 17, 2024 12:00am As directed Start: 05-17-2024 Blood-Glucose Sensor (Freestyle Ramy 3 Plus Sensor) device Active 0 .ROUTE .MEDSUPPLY May 16, 2024 11:00pm As directed Blood-Glucose,[place],Cont (Freestyle Ramy 3 [place]) misc (20 sources) Start: 03-19-2024 Blood-Glucose,[place],Cont (Freestyle Ramy 3 [place]) misc Active 0 .ROUTE .MEDSUPPLY March 19, 2024 12:00am As directed Start: 03-02-2024 End: 10-15-2024 Blood-Glucose,[place],Cont (Freestyle Ramy 3 [place]) misc Discontinued 0 .Route 1 March 02, 2024 12:00am October 15, 2024 8:46pm As directed calcium acetate 667 mg oral tablet (20 sources) Start: 11-13-2023 take 3 tablets by mouth at mealtime Calcium Acetate 667 mg tablet Active 2001 MG PO .tidwith meal November 13, 2023 2:59pm Complies with drug therapy Start: 03-27-2023 take 2 capsules by m outh three times daily at mealtime calcium acetate (Phoslo) 667 MG capsule TAKE 2 CAPSULES BY MOUTH 3 TIMES DAILY WITH EACH MEAL 03/27/2023 Active Start: 03-26-2023 End: 11-13-2023 Start: 03-26-2023 End: 11-13-2023 Calcium Acetate 667 [...] sources) alpha-Adrenergic Brittany, beta-Adrenergic Brittany Start: 07-21-2024 Start: 01-09-2023 End: 07-21-2024 take 1 tablet by mouth twice daily carvedilol (Coreg) 25 mg tablet Take 1 tablet (25 mg) by mouth 2 times a day. 07/18/2023 Active Start: 11-13-2021 End: 01-09-2023 take 1 tablet by lang th every twenty-four hours Carvedilol 12.5 MG 1 tablet with food Orally ONCE A DAY Active cinnamon and chromium (2 sources) Start: 08-10-2019 cinnamon and chromium cinnamon and chromium Start Date: 08/10/19 Status: Ordered clopidogrel 75 mg oral tablet (20 sources) P2Y12 Platelet Inhibitor Start: 11-17-2021 End: 04-23-2025 take 1 tablet by mouth once daily clopidogrel (Plavix) 75 mg tablet Indications: History of MD (myocardial infarction) TAKE 1 TABLET BY MOUTH ONCE DAILY. 90 tablet 3 04/13/2025 Active Continuous Blood Gluc Sensor (Dexcom G6 [...] 50 g 2 09/09/2023 Active Epoetin Alexus (7 sources) Erythropoiesis-sti mulating Agent inject 8000 [IU] by subcutaneous injection three times weekly epoetin alexus (EPOGEN INJ) Inject 8,000 Units under the skin 3 times a week. Active epoetin alexus-epbx 51204 UNT/ML Injectable Solution [Retacrit] (20 sources) Retacrit 97555 U NIT/ML as directed Injection ONCE EVERY 4 WEEKS Not-Taking Retacrit 00686 U NIT/ML as directed Injection ONCE EVERY 4 WEEKS Active famotidine 20 mg oral tablet (20 sources) Histamine-2 Receptor Antagonist Start: 04-13-2025 Start: 06-22-2024 End: 04-13-2025 Start: 03-23-2024 End: 06-22-2024 Start: 11-13-2021 End: 03-23-2024 Start: 11-13-2021 End: 03-23-2024 take 2 tablets by mouth once daily at bedtime Famotidine 20 mg tablet Discontinued 40 MG PO Daily at bedtime November 13, 2021 12:00am March 23, 2024 11:04am Start: 11-13-2021 End: 03-23-2024 take 40 mg by mouth once daily at bedtime Famotidine Discontinued 40 MG PO Daily at bedtime November 13, 2021 12:00am March 23, 2024 11:04am take 1 tablet by lang once daily at bedtime famotidine (Pepcid) 20 mg tablet Take 1 tablet (20 mg) by mouth once daily at bedtime. Active gabapentin 100 mg oral capsule (15 sources) Anti-epileptic Agent Start: 01-12-2025 take 1 capsule by mouth once daily at bedtime gabapentin (Neurontin) 100 mg capsule Take 1 capsule (100 mg) by mouth once daily at bedtime. 05/07/2025 Active 2 ml heparin sodium, porcine 1000 unt/ml injection (7 sources) Unfractionated Heparin, Anti-coagulant heparin sodium,porcine/PF (heparin, porcine, PF,) 1,000 unit/mL solution Infuse 1 mL (1,000 Units) into a venous catheter 3 times a week. Active hydrALAZINE hydrochloride 50 mg oral tablet (20 sources) Arteriolar Vasodilator Start: 06-01-2025 Start: 08-07-2024 End: 05-27-2026 take 1 tablet by mouth three times daily hydrALAZINE (Apresoline) 100 mg tablet Indications: Essential hypertension, benign Take 1 tablet (100 mg) by mouth 3 times a day. 270 tablet 3 05/27/2025 05/27/2026 Active Start: 03-17-2024 End: 06-11-2025 take 1 tablet by mouth twice daily Hydralazine 100 mg tablet Active 100 MG PO Twice daily 60 August 07, 2024 6:51pm Complies with drug therapy Start: 10-03-2022 End: 08-07-2024 Start: 10-03-2022 End: 08-07-2024 take 1 tablet by mouth three times daily Hydralazine 50 mg tablet Discontinued 50 MG PO Three times daily November 13, 2023 12:00am November 26, 2023 8:56am Start: 11-18-2021 End: 10-03-2022 Start: 11-18-2021 End: 10-03-2022 take 1 mg [...] oral tablet (20 sources) Antihistamine Start: 10-30-2024 Start: 10-16-2024 End: 10-30-2024 take 1 tablet by mouth once daily at bedtime Hydroxyzine Hcl 25 mg tablet Discontinued 0 .ROUTE .COMPLEX 90 October 16, 2024 7:56am October 30, 2024 8:30am TAKE 1 TABLET BY MOUTH EVERYDAY AT BEDTIME Start: 05-21-2024 End: 10-30-2024 Start: 05-21-2024 End: 09-02-2024 take 1 tablet by mouth at bedtime Hydroxyzine Hcl 25 mg tablet Discontinued 0 .ROUTE .COMPLEX May 21, 2024 12:41pm September 02, 2024 10:16pm TAKE 1 TABLET BY MOUTH AT BEDTIME Start: 04-29-2024 End: 05-21-2024 hyoscyamine sulfate 0.125 mg oral tablet (11 sources) Start: 07-09-2023 take 1 tablet by mouth every six hours as needed for pain hyoscyamine (Anaspaz,Levsin) 0.125 MG tablet TAKE 1 TABLET BY MOUTH EVERY 6 HOURS NEEDED FOR ABDOMINAL PAIN 07/09/2023 Active 3 ml insulin glargine 100 unt/ml pen injector (20 sources) Insulin Analog Start: 10-14-2024 End: 10-30-2024 Start: 11-26-2023 End: 10-14-2024 Start: 11-26-2023 End: 10-14-2024 inject 20 [IU] by subcutaneous injection at bedtime Insulin Glargine (Lantus U-100 Insulin) 100 unit/mL solution Discontinued 20 UNIT SUBCUT Bedtime November 26, 2023 12:00am October 14, 2024 3:08pm Start: 04-12-2023 End: 11-13-2023 Start: 04-12-2023 End: 11-13-2023 inject 10 [IU] [...] 0 09/11/2021 Active Start: 09-11-2021 End: 01-09-2023 Start: 09-11-2021 End: 01-09-2023 Insulin Glargine (Basaglar [...] 2021 10:23pm 3 ml insulin lispro 100 unt/ml pen injector (20 sources) Insulin Analog Start: 10-14-2024 Insulin Lispro (Humalog Kwikpen Insulin) 100 unit/mL insulin pen Active 0 sliding scale dose SUBCUT Use as Directed Protocol: *If the corrective scale dose has been administered within the past 4 hours, do not use corrective scale again unless approved by prescriber* Condition: Custom Scale 1:___ Condition: Dose/Route: Instructions: Condition: Fingerstick Blood Glucose Dose/Route: Insulin Units Condition: 101-150mg/dl Dose/Route: 2 unit Condition: 151-200mg/dl Dose/Route: 4 units Condition: 201-250mg/dl Dose/Route: 6 units Condition: 251-300mg/dl Dose/Route: 8 units Condition: 301-350mg/dl Dose/Route: 10 units Condition: Greater than or = 400 mg/dl Dose/Route: 12 units October 14, 2024 2:43pm Please contact the information source for Protocol details. Complies with drug therapy Start: 11-13-2023 End: 10-14-2024 Start: 05-29-2022 End: 11-26-2023 Start: 05-24-2022 HumaLOG KwikPe n 100 UNIT/ML [...] 2 times a day. 08/09/2023 Active Start: 10-03-2022 End: 01-31-2023 Start: 10-03-2022 End: 11-12-2022 take 1 tablet by mouth once daily, then take 1 tablet by mouth every twenty-four hours Isosorbide Mononitrate 60 mg Tablet Extended Release 24 Hr Discontinued 60 MG PO Daily at 0600 30 30 October 03, 2022 1:00am November 12, 2022 9:50am Start: 07-05-2022 End: 10-03-2022 Isosorbide Dinitrate (2 sources) Nitrate Vasodilator Start: [...] bedtime. 5 mL 1 09/05/2023 10/05/2023 Active nitroglycerin 0.4 mg sublingual tablet (20 sources) [...] (20 sources) Proton Pump Inhibitor Start: 04-21-2024 Start: 05-09-2022 End: 04-21-2024 take 1 capsule by [facility] once daily omeprazole (PriLOSEC) [address] capsule Take 1 capsule (20 mg) by mouth once daily. Active ondansetron 4 mg disintegrating oral tablet (20 sources) Serotonin-3 Receptor Antagonist Start: 07-09-2023 ondansetron ODT (Zofran-ODT) 4 MG disintegrating tablet DISSOLVE 1 TABLET ON THE TONGUE EVERY 6 HOURS NEEDED FOR NAUSEA/ VOMITING 07/09/2023 Active Start: 09-19-2021 End: 09-30-2021 Start: 09-11-2021 End: 09-30-2021 Comment on above: Take 4 mg by mouth e very 6 hours as needed. One Touch Glucometer (4 sources) Start: 024 One Touch Glucometer use as directed for 365 days Ultra meter Aug, Active paricalcitol 0.001 mg oral capsule (3 sources) Vitamin D3 Analog End: 025 take 3 capsules by mouth three times weekly paricalcitol (Zemplar) 1 mcg capsule Take 3 capsules (3 mcg) by mouth 3 times a week. 11/24/2024 Discontinued (Therapy completed) polyethylene glycol 3350 071738 mg / potassium chloride 2970 mg / sodium bicarbonate 6740 mg / sodium chloride 5860 mg / sodium sulfate 69835 mg powder for oral solution (11 sources) Osmotic Laxative Start: 023 GaviLyte-G 236 g solution TAKE 240 ML EVERY 10 MINUTES UNTIL FECAL EFFLUENT IS CLEAR 07/09/2023 Active Prednisolon-Moxiflox -Bromfenac 1-0.5-0.075 % solution (11 sources) Start: 024 Azhdoipdxbl-Zmaxpubc-Upir fenac 1-0.5-0.075 % solution Indications: Cataract of left eye with neovascularization Administer 1 drop into affected eye(s) in the morning and 1 drop at noon and 1 drop in the evening and 1 drop before bedtime. 10 mL 1 09/05/2023 Active retacrit 92911 unit/ml solution (5 sources) Retacrit 64145 U NIT/ML as directed Injection ONCE EVERY 4 WEEKS Active sacubitril 24 mg / valsartan 26 mg oral tablet (3 sources) Angiotensin 2 Receptor Brittany Start: sacubitriL-valsartan (Entresto) 24-26 mg tablet 1 tablet. 06/01/2025 Active sertraline 100 mg oral tablet (20 sources) Serotonin Reuptake Inhibitor Start: End: Start: 02-18-2024 End: 03-01-2024 Start: 07-16-2023 End: 07-21-2024 take 1 tablet by mouth in the morning sertraline (Zoloft) 100 mg tablet Take 1 tablet (100 mg) by mouth early in the morning.. 05/18/2024 Active 5 ml sodium ferric gluconate complex 12.5 mg/ml injection (2 sources) End: 06-11-2024 ferric gluconate (Ferrlecit) 62.5 mg/5 mL injection Infuse 5 mL (62.5 mg) into a venous catheter every other day. 06/11/2024 Discontinued (Therapy completed) sodium zirconium cyclosilicate 08455 mg powder for oral suspension (7 sources) Start: 11-12-2022 take 1 dose by mouth once daily Lokelma 10 GM 1 packet dissolved in water Orally Once a day for 30 day(s) Oct, Active Vitamin D (2 sources) Start: 08-29-2022 Vitamin D International_Unit, Oral, qWeek Start Date: 08/29/22 Status: Ordered (20 sources) Start: 03-18-2025 Start: 01-08-2025 Start: 10-14-2024 End: 01-08-2025 Start: 10-14-2024 End: 03-18-2025 Start: 09-17-2024 Start: 09-17-2024 End: 09-17-2024 Start: 08-17-2024 End: 08-28-2024 Start: 05-21-2024 End: 09-02-2024 Start: 05-17-2024 Start: 03-19-2024 Start: 03-19-2024 End: 05-17-2024 Start: 03-02-2024 End: 10-15-2024 Start: 03-02-2024 Start: 03-02-2024 End: 04-09-2024 Start: 03-02-2024 End: 05-17-2024 Start: 02-13-2024 End: 06-22-2024 Start: 11-26-2023 Start: 11-13-2023 End: 11-26-2023 Start: 11-13-2023 Start: 11-13-2023 End: 11-26-2023 Start: 05-29-2022 End: 11-13-2023 Completed/Discontinued Medications Medication Drug Class(es) Dates Sig (Normalized) Sig (Original) albuterol 0.83 mg/ml inhalation solution (20 sources) beta2-Adrenergic Agonist Start: 03-24-2024 End: 08-28-2024 Start: 03-24-2024 End: 08-28-2024 take 2.5 mg by inhalation every six hours as needed for cough Albuterol Sulfate 2.5 mg /3 mL (0.083 %) solution for nebulization Discontinued 2.5 MG INHALATION Every 6 hours as needed for cough 75 March 25, 2024 1:04pm August 28, 2024 9:00am Start: 11-14-2023 End: 11-26-2023 Start: 11-14-2023 End: 08-28-2024 Start: 11-14-2023 End: 11-26-2023 take [...] 14, 2023 3:16pm March 02, 2024 1:09pm amLODIPine 5 mg oral tablet (20 sources) Dihydropyridine Calcium Channel Brittany Start: 11-01-2024 End: 04-22-2025 Start: 10-16-2024 End: 11-01-2024 Start: 04-29-2024 take 1 tablet by lang th once daily amLODIPine (Norvasc) 10 mg tablet Take 1 tablet (10 mg) by mouth once daily. 04/29/2024 Active Start: 04-29-2024 End: 10-16-2024 Start: 04-29-2024 End: 10-16-2024 take 4 tablets by mouth once daily Amlodipine 2.5 mg tablet Discontinued 10 MG PO Daily August 28, 2024 1:00am October 16, 2024 7:57am Start: 08-18-2023 End: 04-09-2024 Start: 08-18-2023 End: 08-28-2024 take 1 tablet by mouth once daily Amlodipine 2.5 mg tablet Discontinued 2.5 MG PO Daily April 29, 2024 12:00am August 28, 2024 9:02am Start: 08-21-2021 End: 06-11-2024 amLODIPine Besyl ate Active amoxicillin 875 mg / clavula carlos 125 mg oral tablet (20 sources) Penicillin-class Antibacterial Start: 03-02-2024 End: 03-10-2024 Start: 03-02-2024 End: 03-10-2024 take 1 tablet by mouth twice daily Amoxicillin-Pot Clavulanate 875-125 mg tablet Discontinued 1 TAB PO Twice daily March 02, 2024 12:00am March 10, 2024 7:40am azithromycin 250 mg oral tablet (20 sources) Macrolide Antimicrobial Start: 08-29-2024 End: 09-16-2024 benzonatate 100 mg oral capsule (20 sources) Non-narcotic Antitussive Start: 03-02-2024 End: 04-09-2024 Blood-Glucose Sensor (Freestyle Ramy 3 Sensor) device (20 sources) Start: 03-19-2024 End: 05-17-2024 Blood-Glucose Sensor (Freestyle Ramy 3 Sensor) device Discontinued 0 .ROUTE .MEDSUPPLY March 19, 2024 12:00am Lita 29th, 2024 5:51pm Use to test home BS [...] 7 days. cephalexin 500 mg oral capsule (20 sources) Cephalosporin Antibacterial Start: 08-29-2024 End: 09-16-2024 dextromethorphan hydrobromide 1 mg/ml / guaiFENesin 20 mg/ml oral solution (20 sources) Uncompetitive V-phhnsn-V-aspartate Receptor Antagonist, Sigma-1 Agonist Start: 08-17-2024 End: 08-28-2024 Start: 08-17-2024 End: 08-28-2024 take 1 mL by mouth five times daily as needed for cough Dextromethorphan-Guaifenesin (Robitussin Cough-Chest Matt Dm) 5-100 mg/5 mL liquid Discontinued 10 ML PO EVERY 4-8 HOURS as needed for cough 500 August 17, 2024 1:00am August 28, 2024 9:00am Start: 08-17-2024 End: 08-28-2024 take 1 mL by mouth five times daily as needed for cough Dextromethorphan-Guaifenesin (Robitussin Cough-Chest Matt Dm) 5-100 mg/5 mL liquid Discontinued 10 ML PO EVERY 4-8 HOURS as needed for cough 500 August 17, 2024 1:00am August 28, 2024 [...] (20 sources) Anticholinergic Start: 09-11-2021 End: 09-30-2021 dorzolamide HCl/PF (DORZOLAMIDE, PF,) 2 % drop (2 sources) Start: 10-01-2021 take 1 drop(s) into the eye(s) three times daily dorzolamide HCl/PF (DORZOLAMIDE, PF,) 2 % drop Use 1 Drop in eyes three times daily. 10 mL 0 10/01/2021 Active Comment on above: Use 1 Drop in eyes t hree times daily. doxycycline hyclate 100 mg oral tablet (20 sources) Tetracycline-class Drug Start: 08-17-2024 End: 08-28-2024 Start: 09-03-2022 take 1 capsule by [facility] twice daily doxycycline hyclate 100 mg Cap 100 mg = 1 cap(s), Oral, BID, # 14 cap(s), Refills(s) 0, Pharmacy: [facility]/pharmacy #[id number], 182, cm, 08/29/22 10:31:00 EST, Height/Length Dosing, 76.2, kg, 08/29/22 10:31:00 EST, Weight Dosing Start Date: 09/03/22 Status: Ordered Epoetin Alexus-Epbx (20 sources) Start: 04-09-2022 End: 11-26-2023 Start: 04-09-2022 End: 11-26-2023 inject 21404 [IU] by subcutaneous injection every month Epoetin Alexus-Epbx (Retacrit) 20,000 unit/mL solution Discontinued 53086 UNIT SUBCUT every month April 08, 2022 11:00pm November 26, 2023 7:56am Start: 04-09-2022 End: 11-26-2023 inject 72140 [IU] by subcutaneous injection every month Epoetin Alexus-Epbx (Retacrit) 20,000 unit/mL solution Discontinued [id number] UNIT SUBCUT every month April 09, 2022 12:00am November 26, 2023 8:56am Start: 04-09-2022 inject 07318 [IU] by subcutaneous injection every month Epoetin Alexus-Epbx (Retacrit) 20,000 unit/mL solution Active 80119 UNIT SUBCUT every month April 08, 2022 11:00pm Start: 04-09-2022 inject 21019 [IU] by subcutaneous injection every month Epoetin Alexus-Epbx (Retacrit) 20,000 unit/mL solution Active 48865 UNIT SUBCUT every month April 09, 2022 12:00am Epoetin Alexus-Epbx (20 sources) Start: 11-13-2023 End: 11-26-2023 Start: 11-13-2023 End: 11-26-2023 Epoetin Alexus-Epbx (Retacrit) 20,000 unit/2 mL solution Discontinued 14232 UNIT SUBCUT .q4wks November 12, 2023 11:00pm November 26, 2023 7:56am Start: 11-13-2023 End: 11-26-2023 Epoetin Alexus-Epbx (Retacrit) 20,000 unit/2 mL solution Discontinued 28580 UNIT SUBCUT .q4wks November 13, 2023 12:00am November 26, 2023 8:56am Start: 11-13-2023 Epoetin Alexus-E pbx (Retacrit) 20,000 unit/2 mL solution Active 01005 UNIT SUBCUT .q4wks November 13, 2023 12:00am Ergocalciferol (20 sources) Provitamin D2 Compound Start: 11-13-2023 End: 11-26-2023 Ergocalciferol (Vitamin D2) Discontinued UNIT PO November 13, 2023 12:00am November 26, 2023 8:56am Start: 11-13-2023 Ergocalciferol (Vitamin D2) Active UNIT PO November 13, 2023 12:00am Start: 07-02-2023 take 1 capsule by mo uth every week ergocalciferol (Vitamin D2) 1.25 MG (20695 UT) capsule Take 1 capsule by mouth 1 (one) time per week. 07/02/2023 Active Start: 04-09-2022 End: 03-26-2023 Start: 04-09-2022 take 1250 ug by mout h every week Ergocalciferol (Vitamin D2) Active 1250 MCG PO every week April 09, 2022 12:00am Start: 03-14-2022 take 1 capsule by mo uth every week Ergocalciferol 1.25 MG (72143 UT) 1 capsule Orally Q week for 90 day(s) Feb, Active take 1 capsule by mo uth every week Vitamin D (Ergocalciferol) 1.25 MG (64600 UT) TAKE 1 CAPSULE BY MOUTH ONCE A WEEK for 84 Active Ergocalciferol (Vitamin D2) 50,000 unit tablet (20 sources) Start: 11-13-2023 End: 11-26-2023 Ergocalciferol (Vitamin [...] 13, 2021 1:15am Start: 09-29-2021 End: 10-17-2023 fluconazole 150 mg oral tabl et (20 sources) Azole Antifungal Start: 09-11-2021 End: 09-30-2021 Start: 09-11-2021 End: 09-30-2021 take 1 tablet by mouth once Fluconazole (Diflucan) 150 mg tablet Discontinued 150 MG PO Once September 11, 2021 1:00am October 01, 2021 12:14am Take this medication on 09/14/2021 if you are still having burning with urination furosemide 80 mg oral tablet (20 sources) Loop Diuretic Start: 11-01-2024 End: 11-02-2024 Start: 10-19-2024 take 1 tablet by lang th once daily furosemide (Lasix) 40 mg tablet Indications: Congestive heart failure, unspecified HF chronicity, unspecified heart failure type (Multi) TAKE 1 TABLET BY MOUTH EVERY DAY 90 tablet 3 10/19/2024 Active Start: 08-01-2024 End: 03-20-2025 Start: 06-20-2023 End: 05-18-2024 take 1 tablet by mouth twice daily Furosemide 40 mg Tablet Discontinued 40 MG PO BID@0800,1600 60 March 02, 2024 12:00am May 18, 2024 4:27pm Start: 08-29-[address] art Date: 08/29/22 Status: Ordered Start: 11-17-2021 End: 08-01-2024 Start: 11-17-2021 End: 03-02-2024 take 1 tablet by mouth once daily in the morning Furosemide 40 mg tablet Discontinued 40 MG PO Every morning September 10, 2022 5:49pm March 02, 2024 1:55pm Start: 11-17-2021 End: 08-01-2024 take 2 tablets by mouth twice daily Furosemide 40 mg tablet Discontinued 80 MG PO Twice daily 120 30 May 18, 2024 6:09pm August 01, 2024 4:00am 12 hr guaiFENesin 600 mg ext ended release oral tablet (20 sources) Start: 08-29-2024 End: 09-02-2024 Start: 03-02-2024 End: 04-09-2024 Start: 03-02-2024 End: 04-09-2024 take 2 tablets by mouth twice daily, then take 1 tablet by mouth every twelve hours Guaifenesin (Mucinex) 600 mg Tablet Extended Release 12hr Discontinued 1200 MG PO Twice daily 15 03March 02, 2024 12:00am April 09, 2024 2:40pm homatropine methylbromide 0. 3 mg/ml / HYDROcodone bitartrate 1 mg/ml oral solution (20 sources) Opioid Agonist, Cholinergic Muscarinic Agonist Start: 08-17-2024 End: 08-28-2024 Start: 08-17-2024 End: 08-28-2024 Hydrocodone-Homatropine (Hyc odan) 5-1.5 mg/5 mL (5 mL) syrup Discontinued 5 ML PO Every 6 hours as needed for cough 200 August 17, 2024 August 28, 2024 9:01am Insulin Glargine (Lantus U-100 Insulin) 100 unit/mL [...] SUBCUT Daily November 25, 2023 11:00pm Start: 11-26-2023 inject 15 [IU] by ramon bcutaneous injection [...] Use as Directed November 13, 2023 3:01pm iohexol (OMNIPaque) 350 mg iodine/mL solution 80 mL (1 source) Start: 06-02-2025 End: 06-02-2025 80 mL, intravenous, Once in imaging, Starting on Sat06/02/25 at 1137, For 1 dose lisinopril 20 mg oral tablet (20 sources) Angiotensin Converting Enzyme Inhibitor Start: 10-18-2024 End: 06-01-2025 Start: 04-09-2024 End: 10-18-2024 loratadine 10 mg oral tablet (20 sources) Start: 02-13-2024 End: 06-22-2024 Start: 02-13-2024 take 1 tablet by lang th every other day Loratadine Active 0 .ROUTE .COMPLEX 45 February 13, 2024 9:03am TAKE 1 TABLET BY MOUTH EVERY OTHER DAY Start: 01-03-2023 End: 08-28-2024 loratadine (Claritin) 10 mg tablet Take 1 tablet (10 mg) by mouth if needed. 06/21/2023 Active Start: 01-03-2023 losartan potassium 25 mg ora l tablet (20 sources) Angiotensin 2 Receptor Brittany Start: 11-12-2022 End: 01-09-2023 Start: 08-29-2022 losartan Oral, Daily Start Date: 08/29/22 Status: Ordered Start: 09-11-2021 End: 06-03-2022 Start: 08-08-2021 End: 06-03-2022 take 1 tablet by mouth once daily Losartan 25 mg tablet Discontinued 25 MG PO Daily September 11, 2021 1:00am June 03, 2022 3:07pm On Hold: Hold until follow-up with [facility] [employer] [facility] on 11/21/21 24 hr metFORMIN hydrochlorid e 500 mg extended release oral tablet (20 sources) Biguanide Start: 09-11-2021 End: 11-18-2021 Start: 09-11-2021 End: 11-18-2021 metFORMIN ER (GLUCOPHAGE XR) 500 mg 24 hr tablet Metformin Active 500 MG PO Twice daily September 11, 2021 10:23pm 0 09/11/2021 Active Start: 08-10-2019 take 1 mg by mouth once daily metformin 500 mg ER Tab mg tab(s), Oral, Daily, Refills(s) 0 Start Date: 08/10/19 Status: Ordered take 1 tablet by lang th every twelve hours metFORMIN HCl 1000 MG 1 tablet with a meal Orally TWICE A DAY Active Comment on above: Metformin Active 500 MG PO Twice daily September 11, 2021 10:23pm Nirmatrelvir-Ritonavir (20 sources) Start: 09-17-2024 End: 10-30-2024 Start: 09-17-2024 End: 10-30-2024 take 1 tablet by mouth once daily Nirmatrelvir-Ritonavir (Paxlovid) 300 mg (150 mg x 2)-100 mg tablets,dose pack Discontinued 0 PO .COMPLEX September 17, 2024 4:24pm October 30, 2024 8:17am 1tb (150/100) daily x 5 days Start: 09-17-2024 End: 09-17-2024 Start: 09-17-2024 End: 09-17-2024 take 1 tablet by mouth once Nirmatrelvir-Ritonavir (Paxlovid) 300 mg (150 mg x 2)-100 mg tablets,dose pack Discontinued 0 PO .COMPLEX September 17, 2024 1:00am September 17, 2024 [...] Start: 09-17-2024 take 1 tablet by lang once daily Nirmatrelvir-Ritonavir (Paxlovid) 300 mg (150 mg x 2)-100 mg tablets,dose pack Active 0 PO .COMPLEX September 17, 2024 3:24pm 1tb (150/100) daily x 5 days Start: 09-17-2024 End: 09-17-2024 take 1 tablet by mouth once Nirmatrelvir-Ritonavir (Paxlovid) 300 mg (150 mg x 2)-100 mg tablets,dose pack Discontinued 0 PO .COMPLEX September 17, 2024 1:00am September 17, 2024 4:24pm orally per package directions Start: 09-17-2024 End: 09-17-2024 take 1 tablet by mouth once Nirmatrelvir-Ritonavir (Paxlovid) 300 mg (150 mg x 2)-100 mg tablets,dose pack Discontinued 0 PO .[facility] September 17, 2024 12:00am September 17, 2024 3:24pm orally per package directions oxyCODONE hydrochloride 5 mg oral tablet (20 sources) Opioid Agonist Start: 10-17-2023 End: 03-01-2024 potassium chloride 10 meq ex tended release oral tablet (20 sources) Start: 11-17-2021 End: 04-09-2022 take 1 capsule by [facility] every twenty-four hours Potassium Chloride ER 10 MEQ 1 capsule with food Orally Once a day Active predniSONE 20 mg oral tablet (20 sources) Start: 08-17-2024 End: 08-28-2024 Start: 03-02-2024 End: 03-10-2024 RETACRIT INJECTION (20 sources) Start: 02-11-2023 Start: 02-11-2023 RETACRIT INJEC TION Jan, 1000 mL Start: 01-03-2023 Start: 01-03-2023 RETACRIT INJEC TION December, 1000 mL Start: 12-06-2022 Start: 12-06-2022 RETACRIT INJEC TION Nov, 1000 mL Start: 04-20-2022 RETACRIT INJEC TION Apr, 1000 units Start: 04-20-2022 Start: 04-20-2022 RETACRIT INJEC TION Apr, 1000 U ticagrelor 90 mg oral tablet (20 sources) Start: 04-09-2024 End: 04-22-2024 12 hr timolol 5 mg/ml ophthalmic solution (2 sources) beta-Adrenergic Brittany Start: 10-01-2021 timolol maleate (TIMOPTIC) 0.5 % ophthalmic solution Use 1 Drop in the left eye twice daily. 10 mL 0 10/01/2021 Active Comment on above: Use 1 Drop in the le ft eye twice daily. torsemide 20 mg oral tablet (20 sources) Loop Diuretic Start: 11-13-2021 End: 11-18-2021 Start: 11-13-2021 End: 11-18-2021 take 60 mg by mouth once daily Torsemide Discontinued 60 MG PO Daily November 13, 2021 12:00am November 18, 2021 11:22am take 3 tablets by mo uth every [...] [Coronary atherosclerosis of unspecified type of vessel, [place] or graft] Onset: 4 08-13-2022 Chronic Comment [...] 2 - January 2023,No intervention - 02/2024 Coronary atherosclerosis and other heart disease (10 sources) Presence of coronary angioplasty implant and graft; Translations: [Percutaneous transluminal coronary angioplasty status] Onset: 4 01-09-2023 Episodic Deficiency and other anemia (20 sources) Anemia [...] 11-13-2021 Chronic Genitourinary symptoms and ill-defined conditions (20 sources) Proteinuria, unspecified; Translations: [Proteinuria] Onset: 2 Resolved: 2 Episodic Glaucoma (20 sources) Raised intraocular pressure; Translations: [Ocular hypertension, unspecified eye] Onset: 2 10-01-2021 Chronic Headache; including migraine (2 sources) Cluster headache 08-10-2019 Chronic Headache; including migraine (20 sources) Headache; Translations: [Headache] 05-22-2022 Episodic Headache; including migraine (1 source) Headache; including migraine; Translations: [Headache, unspecified] Onset: 5 Heart valve disorders (20 sources) Mitral valve regurgitation; Translations: [Nonrheumatic mitral (valve) insufficiency] Onset: 5 Resolved: 5 09-15-2024 Chronic Comment on above: Echo: LVEF 60%, LVH, normal RV function but enlarged, RVSP elevated, severe MR - 08/2024, Hypertension with complications and secondary hypertension (20 [...] Chest pain; Translations: [Chest pain, unspecified] Onset: 5 10-14-2021 Episodic Osteoarthritis (2 sources) Arthritis 08-29-2022 Chronic Other aftercare (5 sources) Encounter for palliative care; Translations: [Encounter for palliative care] 10-17-2023 Episodic Other aftercare (2 sources) Encounter for therapeutic drug level monitoring; Translations: [Encounter for therapeutic drug level monitoring] Onset: 5 Episodic Other aftercare (4 sources) FPC (current) use of insulin; Translations: [FPC (current) use of insulin] Onset: 4 Episodic Other and ill-defined heart [...] sources) Hypoglycemia, unspecified; Translations: [Hypoglycemia, unspecified] Onset: 5 06-22-2024 Chronic Other eye disorders (20 sources) Hemorrhage of left vitreous body; Translations: [Vitreous hemorrhage, left eye] 10-01-2021 Chronic Other gastrointestinal disorders (2 sources) Pneumatosis cystoides intestinalis; Translations: [Other specified disorders of intestine] Episodic Other gastrointestinal disorders (20 sources) Constipation; Translations: [Constipation, unspecified] 10-19-2023 Episodic [...] [Cough] 05-22-2022 Episodic Other lower respiratory disease (20 sources) Hypoxemia; Translations: [Hypoxemia] 03-09-2024 Episodic Other lower respiratory disease (4 sources) Hypoxemia; Translations: [Hypoxemia] 03-09-2024 Episodic Other lower respiratory disease (20 sources) Hemoptysis; Translations: [Hemoptysis] 08-28-2024 Episodic Other [...] syndrome] 10-17-2023 Chronic Other nervous system disorders (20 sources) Metabolic encephalopathy; Translations: [Metabolic encephalopathy] 03-09-2024 Chronic Other nervous system disorders (3 sources) Metabolic encephalopathy; Translations: [Metabolic encephalopathy] 03-10-2024 Chronic Other nervous system disorders (20 sources) Disorder of brain; Translations: [Encephalopathy, unspecified] [...] shoulder] 09-26-2023 Episodic Other non-traumatic joint disorders (20 sources) Pain in right shoulder; Translations: [Right shoulder pain] 01-12-2025 Episodic Other nutritional; endocrine; and metabolic disorders (20 sources) Ketosis; Translations: [Other specified metabolic disorders] 09-19-2021 Chronic Other nutritional; endocrine; and metabolic disorders (12 sources) H/O: diabetes mellitus; Translations: [Personal history of other endocrine, nutritional and metabolic disease] 05-06-2025 Episodic Other upper respiratory infections (5 sources) [...] Failed encounter 06-22-2024 Episodic Residual codes; unclassified (20 sources) Insomnia; Translations: [Insomnia, unspecified] 04-29-2024 Episodic Residual codes; unclassified (7 sources) Insomnia, unspecified; Translations: [Insomnia, unspecified] 09-02-2024 Episodic Residual codes; unclassified (4 sources) Administration of medication contraindicated; Translations: [Procedure and treatment not carried out because of other contraindication] Onset: 5 05-27-2025 Episodic Residual codes; unclassified (2 sources) Body mass index (BMI) 23.0-23.9, adult; Translations: [Body mass index (BMI) 23.0-23.9, adult] Onset: 5 Episodic Residual codes; unclassified (2 sources) Procedure and treatment not carried out because of other contraindication; Translations: [Procedure and treatment not carried out because of other contraindication] Onset: 5 Episodic Residual codes; unclassified (2 sources) Tobacco use; Translations: [Tobacco use] Onset: 5 Episodic Respiratory failure; insufficiency; arrest (adult) (20 [...] (2 sources) Asymptomatic microscopic hematuria 08-29-2022 Unclassified (14 sources) FU PRN Unclassified (5 sources) You have been scheduled for a follow up appointment for the following date and time, please call to reschedule if needed. Unclassified (2 sources) New Patient Visit; Translations: [New Patient Visit] Onset: 5 Viral infection (20 sources) Disease caused by [...] of diseases classified elsewhere] Onset: 08-28-2024 Episodic Deficiency and other anemia (20 sources) Anemia; Translations: [Anemia, unspecified] Onset: 08-20-2023 10-01-2021 Episodic Fluid and electrolyte disorders (20 sources) Absolute hypovolemia; Translations: [Hypovolemia] Onset: 11-01-2024 09-19-2021 Episodic Malaise and fatigue (20 sources) Asthenia; Translations: [Weakness] Onset: 02-27-2019 06-13-2022 Episodic Mood disorders (2 sources) Mood disorders Onset: 06-02-2025 06-02-2025 Other circulatory disease (10 sources) History of cardiomyopathy; Translations: [Other postprocedural status] Resolved: 02-26-2023 Episodic Other circulatory disease (4 sources) H/O: angina pectoris; Translations: [Personal history of other diseases of circulatory system] Resolved: 02-26-2023 Episodic Other diseases of kidney and ureters (10 sources) Renal impairment; Translations: [Unspecified disorder of [...] EDEMA] Onset: 10-25-2021 Episodic Residual codes; unclassified (7 sources) Nicotine-filled electronic cigarette user; Translations: [Tobacco use] Onset: 11-24-2024 11-24-2024 Episodic Residual codes; unclassified (2 sources) Body mass index (BMI) 21.0-21.9, adult; Translations: [Body mass index (BMI) 21.0-21.9, adult] Onset: 06-11-2024 Episodic Spondylosis; intervertebral disc disorders; other back problems (5 sources) Low back pain; Translations: [Low back pain, unspecified] Onset: 02-27-2019 Episodic Unclassified (5 sources) Onset: 11-24-2024 Resolved: 06-02-2025 11-24-2024 Results Test Name Value Interpretation Reference Range Facility CT Neck+Chest+Abdomen+Pelvis W contrast Daphney 06-02-2025 1. Extensive atherosclerotic changes involving the thoracoabdominal aorta and its branches. Combination of calcified and noncalcified plaque results in zikvsoaq-vu-irixzv stenosis of the left common iliac artery. Tyzi-ai-ttgaxvzi stenosis of the right common iliac artery. The external iliac and femoral vasculature is widely patent. 2. Mild cardiomegaly with left atrial enlargement, as well as pulmonary edema in keeping with known mitral valve regurgitation. 3. Dilated main pulmonary artery measuring 3.4 cm, suggestive of secondary pulmonary arterial hypertension. 4. Aumobrnr-km-efhnbc coronary artery calcifications, with postprocedural changes of coronary stenting. Correlate with diagnostic coronary angiography. 5. Circumferential wall thickening of the urinary bladder with mild prostatomegaly most likely representing chronic outlet obstruction. If there is clinical concern, urinalysis to exclude cystitis may be obtained. I personally reviewed the image(s)/study and resident interpretation. I agree with the findings as stated by resident Andrés Rosen. Data analyzed and images interpreted at [facility], [place], [place]. MACRO: None Signed by: Eugene Santoyo 06/02/2025 2:23 PM Dictation workstation: [id number] [facility] Interpreted By: Eugene Santoyo and Jessika Bowen STUDY: CT TAVR FULL CONTRAST CHEST ABDOMEN PELVIS; 06/02/2025 11:45 am INDICATION: Signs/Symptoms:mitral regurgitation. ,I34.0 Nonrheumatic mitral (valve) insufficiency COMPARISON: None. ACCESSION NUMBER(S): [id number] ORDERING CLINICIAN: CHAITANYA SAAVEDRA TECHNIQUE: Multi-detector CT technology was employed. Initial limited axial imaging of chest with prospective gating is performed. Following this,helical multi-detector acquisition of the chest with retrospective gating and minimal slice thickness was performed following the intravenous administration of 80 ML Omnipaque 350. Subsequently, contrast enhanced non-gated CT examination of the abdomen and pelvis was obtained. Cine images of the cardiac cycle were acquired. For optimization of anatomic evaluation, multiplanar reconstruction, maximum intensity projections, and advanced 3-D off-line postprocessing were performed on a dedicated stand-alone workstation under the direct supervision of the interpreting physician. FINDINGS: Potential study limitations: None. THORACIC AORTA AND HEART: The thoracic aorta normal in course and caliber.There is moderate atherosclerosis present, including calcified and noncalcified plaques. There is no evidence for acute aortic pathology, such as dissection, intramural hematoma, or contained rupture. The sinotubular junction is preserved. The arch vessel branching pattern is conventional. Mild narrowing of the proximal portions of the aortic branch vessels secondary to atherosclerotic disease, without hemodynamically significant stenosis. Normal atrioventricular and ventriculoarterial concordance. Cardiomegaly with left atrial enlargement. Mild aortic valvular calcifications. Normal coronary artery origins.Aynsuzjl-kt-ezok re coronary artery calcifications. Multiple coronary stents are identified. There is no pericardial effusion seen. PULMONARY ARTERIES Main pulmonary artery is moderately dilatedmeasuring 3.4 cm. Although the study is not tailored for evaluation of pulmonary arteries, there are no discrete filling defects within the pulmonary arteries or its opacified branches to suggest pulmonary embolism. SYSTEMIC AND PULMONARY VEINS Normal systemic venous and pulmonary venous return. The SVC and IVC are of normal caliber. Normal pulmonary venous anatomy. CHEST: The visualized thyroid gland is within normal limits. No evidence of thoracic lymphadenopathy by CT criteria. There is a smallsized hiatal hernia. Otherwise, the esophagus is within normal limits. The trachea and central airways are patent. No endobronchial lesion is seen. There is mild diffuse smooth interstitial septal thickening bilaterally, along with associated patchy alveolar ground-glass opacitiesshowing dependent gradient, likely representing combination of interstitial and alveolar pulmonary edema. Area of bandlike scarring in the left lung base. Numerous bilateral punctate pulmonary nodules are difficult to separate from suspected pulmonary edema. No suspicious pulmonary nodular mass ABDOMINAL AORTA: The abdominal aorta and its branches demonstrate severe scattered calcified and non calcified atherosclerotic plaques. The celiac, SMA, IGNACIO and bilateral renal arteries are normal in caliber. There are 2 left renal arteries that share a common ostium without hemodynamically significant stenosis. Single right renal artery is patent without stenosis. Calcified and noncalcified plaque in the left common iliac artery results in gjqopkuc-qk-xjkmfs stenosis. Ygfw-or-glcjxxjx stenosis of the right common iliac artery. The external iliac arteries are widely patent. Mild atherosclerotic disease of the bilateral femoral vasculature. There is hupf-wc-ctokwxzs right common femoral artery narrowing.. ABDOMEN AND PELVIS: HEPATOBILIARY SYSTEM: The liver is normal in size. There is no evidence of focal liver lesion GALLBLADDER: The gallbladder is nondistended without evidence of radiopaque stones. The intrahepatic and extrahepatic bile ducts are not dilated. PANCREAS: The pancreas is within normal limits.No suspicious focal lesions identified. SPLEEN: The spleen is normal in size.No suspicious focal lesions are seen. ADRENAL GLANDS: The bilateral adrenal glands are unremarkable in appearance. KIDNEYS AND URETERS: The bilateral kidneys are normal in size and enhance symmetrically. Small bilateral hypodense lesions too small to fully characterize are favored to represent simple cysts. There is no evidence of hydroureteronephrosis or nephroureterolithiasis. GI TRACT: The stomach is unremarkable. The small bowel is normal in caliber without evidence of focal wall thickening or obstruction. The appendix is visualized and appears normal. (more content not included)... [facility] Radiology Study observation (narrative) [facility] Work Phone: CT Neck+Chest+Abdomen+Pelvis W contrast IVOrdered By: Guy Santoyo on 06-02-2025 [facility] Work Phone: CT TAVR FULL CONTRAST CHEST ABDOMEN PELVISon 06-02-2025 CT TAVR FULL CONTRAST CHEST ABDOMEN PELVIS Interpreted By: Eugene Santoyo and Beyersdorf Conner STUDY: CT TAVR FULL CONTRAST CHEST ABDOMEN PELVIS; 06/02/2025 11:45 am INDICATION: Signs/Symptoms:mitral regurgitation. ,I34.0 Nonrheumatic mitral (valve) insufficiency COMPARISON: None. ACCESSION NUMBER(S): [id number] ORDERING CLINICIAN: CHAITANYA SAAVEDRA TECHNIQUE: Multi-detector CT technology was employed. Initial limited axial imaging of chest with prospective gating is performed. Following this,helical multi-detector acquisition of the chest with retrospective gating and minimal slice thickness was performed following the intravenous administration of 80 ML Omnipaque 350. Subsequently, contrast enhanced non-gated CT examination of the abdomen and pelvis was obtained. Cine images of the cardiac cycle were acquired. For optimization of anatomic evaluation, multiplanar reconstruction, maximum intensity projections, and advanced 3-D off-line postprocessing were performed on a dedicated stand-alone workstation under the direct supervision of the interpreting physician. FINDINGS: Potential study limitations: None. THORACIC AORTA AND HEART: The thoracic aorta normal in course and caliber.There is moderate atherosclerosis present, including calcified and noncalcified plaques. There is no evidence for acute aortic pathology, such as dissection, intramural hematoma, or contained rupture. The sinotubular junction is preserved. The arch vessel branching pattern is conventional. Mild narrowing of the proximal portions of the aortic branch vessels secondary to atherosclerotic disease, without hemodynamically significant stenosis. Normal atrioventricular and ventriculoarterial concordance. Cardiomegaly with left atrial enlargement. Mild aortic valvular calcifications. Normal coronary artery origins.Uvivncue-dm-eorr re coronary artery calcifications. Multiple coronary stents are identified. There is no pericardial effusion seen. PULMONARY ARTERIES Main pulmonary artery is moderately dilatedmeasuring 3.4 cm. Although the study is not tailored for evaluation of pulmonary arteries, there are no discrete filling defects within the pulmonary arteries or its opacified branches to suggest pulmonary embolism. SYSTEMIC AND PULMONARY VEINS Normal systemic venous and pulmonary venous return. The SVC and IVC are of normal caliber. Normal pulmonary venous anatomy. CHEST: The visualized thyroid gland is within normal limits. No evidence of thoracic lymphadenopathy by CT criteria. There is a smallsized hiatal hernia. Otherwise, the esophagus is within normal limits. The trachea and central airways are patent. No endobronchial lesion is seen. There is mild diffuse smooth interstitial septal thickening bilaterally, along with associated patchy alveolar ground-glass opacitiesshowing dependent gradient, likely representing combination of interstitial and alveolar pulmonary edema. Area of bandlike scarring in the left lung base. Numerous bilateral punctate pulmonary nodules are difficult to separate from suspected pulmonary edema. No suspicious pulmonary nodular mass ABDOMINAL AORTA: The abdominal aorta and its branches demonstrate severe scattered calcified and non calcified atherosclerotic plaques. The celiac, SMA, IGNACIO and bilateral renal arteries are normal in caliber. There are 2 left renal arteries that share a common ostium without hemodynamically significant stenosis. Single right renal artery is patent without stenosis. Calcified and noncalcified plaque in the left common iliac artery results in suezhiyg-xf-pmgyro stenosis. Kesv-yf-nonomqof stenosis of the right common iliac artery. The external iliac arteries are widely patent. Mild atherosclerotic disease of the bilateral femoral vasculature. There is zqmd-tr-aynnjxdi right common femoral artery narrowing.. ABDOMEN AND PELVIS: HEPATOBILIARY SYSTEM: The liver is normal in size. There is no evidence of focal liver lesion GALLBLADDER: The gallbladder is nondistended without evidence of radiopaque stones. The intrahepatic and extrahepatic bile ducts are not dilated. PANCREAS: The pancreas is within normal limits.No suspicious focal lesions identified. SPLEEN: The spleen is normal in size.No suspicious focal lesions are seen. ADRENAL GLANDS: The bilateral adrenal glands are unremarkable in appearance. KIDNEYS AND URETERS: The bilateral kidneys are normal in size and enhance symmetrically. Small bilateral hypodense lesions too small to fully characterize are favored to represent simple cysts. There is no evidence of hydroureteronephrosis or nephroureterolithiasis. GI TRACT: The stomach is unremarkable. The small bowel is normal in caliber without evidence of focal wall thickening or obstruction. The appendix is visualized and appears normal. There is no evidence of focal wall thickening or dil (more content not included)... Normal [facility] Basic Metabolic Panelon 10- Creatinine Clr Calc Pharmacy 18.03 Normal [facility] Comment on above: Performed By: #### C ISAAC PADRON, ALIN MG ####[facility] [address] [place] [address] [facility] GFR/1.73 sq M.predicted MDRD (S/P/Bld) [Vol rate/Area] 11.297 mL/min/{1.73_m2} Normal [facility] Comment on above: Performed By: #### C ISAAC PADRON, PHOS, MG ####[address] [address] [facility] Basophils [#/volume] in Bloo d by Automated countOrdered By: Adrian Noland on 06-01-2025 Basophils (Bld) [#/Vol] 0.1 10*3/uL Normal 0.0-0.2 [facility] Comment on above: Result Comment: PERF ORMED BY:[place] [address] [place], [place] [phone] MEDICAL YECENIA METCALF M.D. Performed By: #### C BC, BMP, PHOS, MG ####[place] [id number] [place] [id number] [facility] Basophils/100 leukocytes in Blood by Automated countOrdered By: Adrian Noland on 06-01-2025 Basophils/100 WBC (Bld) 1.8 % Normal . [facility] Comment on above: Performed By: #### C BC, BMP, PHOS, MG ####[place] [id number] [facility] Calcium [Mass/volume] in Ser um or PlasmaOrdered By: Adrian Noland on 06-01-2025 Calcium [Mass/Vol] 9.1 mg/dL Normal 8.6-10.3 [facility] Comment on above: Performed By: #### C BC, BMP, PHOS, MG ####[place] [id number] [facility] Capillary blood glucose farida urement by glucometer (mass/volume)Ordered By: Adrian Noland on 06-01-2025 Glucose [Mass/Vol] 128 mg/dL Normal [facility] Comment on above: Result Comment: [place] Glucose Reference Range is dependent on time and content of last meal. Glucose of more than 200 mg/dL in a nonstressed, ambulatory subject supports the diagnosis of Diabetes Mellitus.PERFORMED BY:[place] [address] [place], [place] [phone] MEDICAL YECENIA METCALF M.D. Performed By: #### G ASHLEY ####Point of Care testing, Carbon dioxide, total [Moles /volume] in Serum or PlasmaOrdered By: Adrian Yancey on 06-01-2025 CO2 [Moles/Vol] 29.3 mmol/L Normal 21.0-31.0 [facility] Comment on above: Performed By: #### C BC, BMP, PHOS, MG ####[address] Chloride [Moles/volume] in S gretta or PlasmaOrdered By: Adrian Noland on 06-01-2025 Chloride [Moles/Vol] 96 mmol/L Low 98-107 [facility] Comment on above: Performed By: #### C BC, BMP, PHOS, MG ####[address] Complete Blood Count Auto Di ffon 06-01-2025 Mean Corpuscular HGB Conc 32.8 g/dL Normal 32.5-35.6 [facility] Comment on above: Performed By: #### C BC, BMP, PHOS, MG ####[address] NRBC% 0.1 /100{WBC} Normal 0-0.5 [facility] Comment on above: Performed By: #### C BC, BMP, PHOS, MG ####[address] White Blood Count 3.6 [CFU]/mL Low 4.1-10.5 [facility] Comment on above: Performed By: #### C BC, BMP, PHOS, MG ####[address] Creatinine [Mass/volume] in Serum or PlasmaOrdered By: Adrian Noland on 06-01-2025 Creatinine [Mass/Vol] 6.03 mg/dL High 0.70-1.30 [facility] Comment on above: Performed By: #### C BC, BMP, PHOS, MG ####[place] [id number] Eosinophils [#/volume] in Bl ood by Automated countOrdered By: Adrian Noland on 06-01-2025 Eosinophils (Bld) [#/Vol] 0.2 10*3/uL Normal 0.0-0.45 [facility] Comment on above: Performed By: #### C BC, BMP, PHOS, MG ####[address] Eosinophils/100 leukocytes i n Blood by Automated countOrdered By: Adrian Noland on 06-01-2025 Eosinophils/100 WBC (Bld) 4.3 % Normal . [facility] Comment on above: Performed By: #### C BC, BMP, PHOS, MG ####[address] Erythrocyte distribution wid th [Ratio] by Automated countOrdered By: Adrian Yancey on 06-01-2025 Erythrocyte distribution width (RBC) [Ratio] 17.1 % High 12.0-14.8 [facility] Comment on above: Performed By: #### C BC, BMP, PHOS, MG ####[address] Erythrocytes [#/volume] in B lood by Automated countOrdered By: Adrian Noland on 06-01-2025 RBC (Bld) [#/Vol] 4.38 10*6/uL Normal 3.90-5.60 [facility] Comment on above: Performed By: #### C BC, BMP, PHOS, MG ####[address] Glomerular filtration rate [ Volume Rate/Area] in Serum, Plasma or Blood by CreatinineOrdered By: Adrian Noland on 06-01-2025 Glomerular filtration rate [Volume Rate/Area] in Serum, Plasma or Blood by Creatinine 11.297 mL/Min [facility] Glucose [Mass/volume] in Ser um or PlasmaOrdered By: Adrian Noland on 06-01-2025 Glucose [Mass/Vol] 124 mg/dL High 70-100 [facility] Comment on above: Result Comment: [facility] Glucose Reference Range is dependent on time and content of last meal. Glucose of more than 200 mg/dL in a nonstressed, ambulatory subject supports the diagnosis of Diabetes Mellitus. ADA recommended reference range Performed By: #### C BC, BMP, PHOS, MG ####[place] [id number] Hematocrit [Volume Fraction] of Blood by Automated countOrdered By: Adrian Yancey on 06-01-2025 Hematocrit (Bld) [Volume fraction] 37.9 % Low 38.8-50.0 [facility] Comment on above: Performed By: #### C BC, BMP, PHOS, MG ####[address] Hemoglobin [Mass/volume] in BloodOrdered By: Adrian Noland on 06-01-2025 Hemoglobin (Bld) [Mass/Vol] 12.4 g/dL Low 13.0-17.0 [facility] Comment on above: Performed By: #### C BC, BMP, PHOS, MG ####[place] [id number] [facility] Leukocytes [#/volume] correc celena for nucleated erythrocytes in Blood by Automated counOrdered By: Adrian Noland on 06-01-2025 WBC corrected for nucl RBC Auto (Bld) [#/Vol] 3.6 10*3/uL Low 4.1-10.5 [facility] Leukocytes [#/volume] in Blo od by Automated countOrdered By: Adrian Noland on 06-01-2025 WBC (Bld) [#/Vol] 3.6 10*3/uL Low 4.1-10.5 [facility] Comment on above: Performed By: #### C BC, BMP, PHOS, MG ####[place] [id number] [place] Lymphocytes [#/volume] in Bl ood by Automated countOrdered By: Adrian Noland on 06-01-2025 Lymphocytes (Bld) [#/Vol] 0.5 10*3/uL Low 1.00-4.8 [facility] Comment on above: Performed By: #### C BC, BMP, PHOS, MG ####[place] [id number] Lymphocytes/100 leukocytes i n Blood by Automated countOrdered By: Adrian Noland on 06-01-2025 Lymphocytes/100 WBC (Bld) 14.4 % Normal . [facility] Comment on above: Performed By: #### C BC, BMP, PHOS, MG ####[place] [id number] MCH [Entitic mass] by Automa celena countOrdered By: Baltazarjohnny Noland on 06-01-2025 MCH (RBC) [Entitic mass] 28.4 pg Normal 27.5-35.2 [facility] Comment on above: Performed By: #### C BC, BMP, PHOS, MG ####[address] MCHC Auto (RBC) [Mass/Vol]Or dered By: Baltazarjohnny Noland on 06-01-2025 MCHC (RBC) [Mass/Vol] 32.8 g/dL 32.5-35.6 [facility] MCV [Entitic volume] by Auto mated countOrdered By: Baltazarjohnny Noland on 06-01-2025 MCV (RBC) [Entitic vol] 86.5 fL Normal 83.5-101 [facility] Comment on above: Performed By: #### C BC, BMP, PHOS, MG ####[address] Magnesium [Mass/volume] in S gretta or PlasmaOrdered By: Adrian Noland on 06-01-2025 Magnesium [Mass/Vol] 2.3 mg/dL Normal 1.9-2.7 [facility] Comment on above: Result Comment: PERF ORMED BY:[address] [place], [place] [phone] MEDICAL DIRECTORYAMINI METCALF M.D. Performed By: #### C BC, BMP, PHOS, MG ####[place] [id number] [place] [id number] [facility] Monocytes [#/volume] in Bloo d by Automated countOrdered By: Baltazaran Austyn-Naye on 06-01-2025 Monocytes (Bld) [#/Vol] 0.2 10*3/uL Normal 0.0-0.8 [facility] Comment on above: Performed By: #### C BC, BMP, PHOS, MG ####[place] [id number] [place] [id number] [facility] Monocytes/100 leukocytes in Blood by Automated countOrdered By: Adrian Zaman-Naye on 06-01-2025 Monocytes/100 WBC (Bld) 6.4 % Normal . [facility] Comment on above: Performed By: #### C BC, BMP, PHOS, MG ####[place] [id number] [facility] Neutrophils [#/volume] in Bl ood by Automated countOrdered By: Adrian Zaman-Naye on 06-01-2025 Neutrophils (Bld) [#/Vol] 2.6 10*3/uL Normal 1.8-7.7 [facility] Comment on above: Performed By: #### C BC, BMP, PHOS, MG ####[place] [id number] [facility] Neutrophils/100 leukocytes i n Blood by Automated countOrdered By: Adrian Zaman-Aladavid on 06-01-2025 Neutrophils/100 WBC (Bld) 73.1 % Normal . [facility] Comment on above: Performed By: #### C BC, BMP, PHOS, MG ####[place] [id number] [facility] No Panel InformationOrdered By: Adrian Zaman-Aladavid on 06-01-2025 18.03 [facility] Nucleated erythrocytes [Pres ence] in Blood by Automated countOrdered By: Adrian Zaman-Naye on 06-01-2025 Nucleated RBC Auto Ql (Bld) 0.1 /100{WBC} 0-0.5 [facility] Phosphate [Mass/volume] in S gretta or PlasmaOrdered By: Adrian Noland on 06-01-2025 Phosphate [Mass/Vol] 5.9 mg/dL High 2.5-4.5 [facility] Comment on above: Performed By: #### C BC, BMP, PHOS, MG ####[place] [id number] Platelet mean volume [Entiti c volume] in Blood by Automated countOrdered By: Adrian Noland on 06-01-2025 Platelet mean volume (Bld) [Entitic vol] 8.0 fL Normal 6.6-10.1 [facility] Comment on above: Performed By: #### C BC, BMP, PHOS, MG ####[address] Platelets [#/volume] in Bloo d by Automated countOrdered By: Adrian Noland on 06-01-2025 Platelets (Bld) [#/Vol] 103 10*3/uL Low 150-450 [facility] Comment on above: Performed By: #### C BC, BMP, PHOS, MG ####[address] Potassium [Moles/volume] in Serum or PlasmaOrdered By: Adrian Noland on 06-01-2025 Potassium [Moles/Vol] 4.3 mmol/L Normal 3.5-5.1 [facility] Comment on above: Performed By: #### C BC, BMP, PHOS, MG ####[address] Serum or plasma anion gap de terminationOrdered By: Adrian Noland on 06-01-2025 Anion gap [Moles/Vol] 15.0 mmol/L Normal 6.0-15.0 [facility] Comment on above: Performed By: #### C BC, BMP, PHOS, MG ####[address] [place] [address] [facility] Sodium [Moles/volume] in Ser um or PlasmaOrdered By: Adrian Noland on 06-01-2025 Sodium [Moles/Vol] 136 mmol/L Normal 136-145 [facility] Comment on above: Performed By: #### C BC, BMP, PHOS, MG ####[place] [id number] [facility] Urea nitrogen [Mass/volume] in Serum or PlasmaOrdered By: Adrian Noland on 06-01-2025 Urea nitrogen [Mass/Vol] 35 mg/dL High 7-25 [facility] Comment on above: Performed By: #### C BC, BMP, PHOS, MG ####[place] [id number] [facility] BNP ser/plasOrdered By: Ham Munoz on 05-31-2025 Natriuretic peptide B (Bld) [Mass/Vol] 3885.0 pg/mL High 5-100 [facility] Comment on above: Result Comment: PERF ORMED BY:[address] [place], [place] [phone] MEDICAL YECENIA METCALF M.D. Performed By: #### C BC, BNP, HS TROP, BMP ####[address] [address] [facility] Basic Metabolic Panelon 05-19 Creatinine Clr Calc Pharmacy 23.53 Normal [facility] Comment on above: Result Comment: PERF ORMED BY:[address] SAUNDERSC[place]UMBIA FALLS, [place] [id number] MEDICAL YECENIA METCALF M.D. Performed By: #### C BC, BNP, HS TROP, BMP ####[address] [address] [facility] GFR/1.73 sq M.predicted MDRD (S/P/Bld) [Vol rate/Area] 15.471 mL/min/{1.73_m2} Normal [facility] Comment on above: Performed By: #### C BC, BNP, HS TROP, BMP ####[address] [address] [place] Basophils [#/volume] in Bloo d by Automated countOrdered By: Allyson Munoz on 05-31-2025 Basophils (Bld) [#/Vol] 0.1 10*3/uL Normal 0.0-0.2 [facility] Comment on above: Result Comment: PERF ORMED BY:[place] [address] [place], [place] [id number] MEDICAL DIRECTORYAMINI METCALF M.D. Performed By: #### C BC, BNP, HS TROP, BMP ####[place] [id number] [place] Basophils/100 leukocytes in Blood by Automated countOrdered By: Allyson Munoz on 05-31-2025 Basophils/100 WBC (Bld) 2.0 % Normal . [facility] Comment on above: Performed By: #### C BC, BNP, HS TROP, BMP ####[place] [id number] [place] Calcium [Mass/volume] in Ser um or PlasmaOrdered By: Allyson Munoz on 05-31-2025 Calcium [Mass/Vol] 8.8 mg/dL Normal 8.6-10.3 [facility] Comment on above: Performed By: #### C BC, BNP, HS TROP, BMP ####[place] [id number] [place] Carbon dioxide, total [Moles /volume] in Serum or PlasmaOrdered By: Allyson Munoz on 05-31-2025 CO2 [Moles/Vol] 30.2 mmol/L Normal 21.0-31.0 [facility] Comment on above: Performed By: #### C BC, BNP, HS TROP, BMP ####[place] [id number] [place] Chloride [Moles/volume] in S gretta or PlasmaOrdered By: Allyson Munoz on 05-31-2025 Chloride [Moles/Vol] 96 mmol/L Low 98-107 [facility] Comment on above: Performed By: #### C BC, BNP, HS TROP, BMP ####[address] Complete Blood Count Auto Di ffon 05-31-2025 Mean Corpuscular HGB Conc 32.7 g/dL Normal 32.5-35.6 [facility] Comment on above: Performed By: #### C BC, BNP, HS TROP, BMP ####[address] Monocytes/100 WBC (Bld) 17.71 % Normal 0.00-20.00 [facility] Comment on above: Performed By: #### C BC, BNP, HS TROP, BMP ####[address] NRBC% 0.1 /100{WBC} Normal 0-0.5 [facility] Comment on above: Performed By: #### C BC, BNP, HS TROP, BMP ####[address] White Blood Count 3.6 [CFU]/mL Low 4.1-10.5 [facility] Comment on above: Performed By: #### C BC, BNP, HS TROP, BMP ####[address] Creatinine [Mass/volume] in Serum or PlasmaOrdered By: Allyson Munoz on 05-31-2025 Creatinine [Mass/Vol] 4.64 mg/dL High 0.70-1.30 [facility] Comment on above: Delta: 6.71 on 05/29 Performed By: #### C BC, BNP, HS TROP, BMP ####[address] ECG 12 lead ECGon 05-31-2025 ECG 12 lead ECG Normal [facility] ECG 12 lead ECG Normal [facility] Eosinophils [#/volume] in Bl ood by Automated countOrdered By: Allyson Munoz on 05-31-2025 Eosinophils (Bld) [#/Vol] 0.2 10*3/uL Normal 0.0-0.45 [facility] Comment on above: Performed By: #### C BC, BNP, HS TROP, BMP ####[place] [id number] [facility] Eosinophils/100 leukocytes i n Blood by Automated countOrdered By: Allyson Munoz on 05-31-2025 Eosinophils/100 WBC (Bld) 4.5 % Normal . [facility] Comment on above: Performed By: #### C BC, BNP, HS TROP, BMP ####[place] [id number] [facility] Erythrocyte distribution wid th [Ratio] by Automated countOrdered By: Allyson Munoz on 05-31-2025 Erythrocyte distribution width (RBC) [Ratio] 16.7 % High 12.0-14.8 [facility] Comment on above: Performed By: #### C BC, BNP, HS TROP, BMP ####[place] [id number] [facility] Erythrocytes [#/volume] in B lood by Automated countOrdered By: Allyson Munoz on 05-31-2025 RBC (Bld) [#/Vol] 4.28 10*6/uL Normal 3.90-5.60 [facility] Comment on above: Performed By: #### C BC, BNP, HS TROP, BMP ####[place] [id number] [facility] Glomerular filtration rate [ Volume Rate/Area] in Serum, Plasma or Blood by CreatinineOrdered By: Allyson Munoz on 05-31-2025 Glomerular filtration rate [Volume Rate/Area] in Serum, Plasma or Blood by Creatinine 15.471 mL/Min [facility] Glucose Poct Glucometerson 1 Commemt1 Glu2: Cleaned Meter Normal [facility] Comment on above: Result Comment: PERF ORMED BY:[address] [place], [place] [phone] MEDICAL YECENIA METCALF M.D. Performed By: #### G ASHLEY ####Point of Care testing, Glucose [Mass/Vol] 215 mg/dL Normal [facility] Comment on above: Result Comment: [place] om Glucose Reference Range is dependent on time and content of last meal. Glucose of more than 200 mg/dL in a nonstressed, ambulatory subject supports the diagnosis of Diabetes Mellitus. Performed By: #### G ASHLEY ####Point of Care testing, Glucose [Mass/volume] in Ser um or PlasmaOrdered By: Allyson Munoz on 05-31-2025 Glucose [Mass/Vol] 214 mg/dL High 70-100 [facility] Comment on above: Delta: 110 on DA recommended reference rangeRandom Glucose Reference Range is dependent on time and content of last meal. Glucose of more than 200 mg/dL in a nonstressed, ambulatory subject supports the diagnosis of Diabetes Mellitus. Result Comment: [facility] Glucose Reference Range is dependent on time and content of last meal. Glucose of more than 200 mg/dL in a nonstressed, ambulatory subject supports the diagnosis of Diabetes Mellitus. ADA recommended reference range Performed By: #### C BC, BNP, HS TROP, BMP ####[facility] [place] [id number] [facility] Hematocrit [Volume Fraction] of Blood by Automated countOrdered By: Allyson Munoz on 05-31-2025 Hematocrit (Bld) [Volume fraction] 36.4 % Low 38.8-50.0 [facility] Comment on above: Performed By: #### C BC, BNP, HS TROP, BMP ####[place] [address] [place] [id number] [facility] Hemoglobin [Mass/volume] in BloodOrdered By: Allyson Munoz on 05-31-2025 Hemoglobin (Bld) [Mass/Vol] 11.9 g/dL Low 13.0-17.0 [facility] Comment on above: Performed By: #### C BC, BNP, HS TROP, BMP ####[place] [address] [place] [phone] [facility] Leukocytes [#/volume] correc celena for nucleated erythrocytes in Blood by Automated counOrdered By: Allyson Munoz on 05-31-2025 WBC corrected for nucl RBC Auto (Bld) [#/Vol] 3.6 10*3/uL Low 4.1-10.5 [facility] Leukocytes [#/volume] in Blo od by Automated countOrdered By: Allyson Munoz on 05-31-2025 WBC (Bld) [#/Vol] 3.6 10*3/uL Low 4.1-10.5 [facility] Comment on above: Performed By: #### C BC, BNP, HS TROP, BMP ####[place] [address] [place] [phone] [facility] Lymphocytes [#/volume] in Bl ood by Automated countOrdered By: Allyson Munoz on 05-31-2025 Lymphocytes (Bld) [#/Vol] 0.5 10*3/uL Low 1.00-4.8 [facility] Comment on above: Performed By: #### C BC, BNP, HS TROP, BMP ####[place] [id number] [facility] Lymphocytes/100 leukocytes i n Blood by Automated countOrdered By: Allyson Munoz on 05-31-2025 Lymphocytes/100 WBC (Bld) 13.8 % Normal . [facility] Comment on above: Performed By: #### C BC, BNP, HS TROP, BMP ####[place] [id number] [facility] MCH [Entitic mass] by Automa celena countOrdered By: Allyson Munoz on 05-31-2025 MCH (RBC) [Entitic mass] 27.8 pg Normal 27.5-35.2 [facility] Comment on above: Performed By: #### C BC, BNP, HS TROP, BMP ####[place] [id number] [facility] MCHC Auto (RBC) [Mass/Vol]Or dered By: Allyson Munoz on 05-31-2025 MCHC (RBC) [Mass/Vol] 32.7 g/dL 32.5-35.6 [facility] MCV [Entitic volume] by Auto mated countOrdered By: Allyson Munoz on 05-31-2025 MCV (RBC) [Entitic vol] 85.1 fL Normal 83.5-101 [facility] Comment on above: Performed By: #### C BC, BNP, HS TROP, BMP ####[place] [address] [place] [address] [place] Monocyte distribution width [Entitic volume] in Blood by AutomatedOrdered By: Allyson Munoz on 05-31-2025 Monocyte distribution width Auto (Bld) [Entitic vol] 17.71 % 0.00-20.00 [facility] Monocytes [#/volume] in Bloo d by Automated countOrdered By: Allyson Munoz on 05-31-2025 Monocytes (Bld) [#/Vol] 0.2 10*3/uL Normal 0.0-0.8 [facility] Comment on above: Performed By: #### C BC, BNP, HS TROP, BMP ####[place] [address] Monocytes/100 leukocytes in Blood by Automated countOrdered By: Allyson Munoz on 05-31-2025 Monocytes/100 WBC (Bld) 6.6 % Normal . [facility] Comment on above: Performed By: #### C BC, BNP, HS TROP, BMP ####[address] Neutrophils [#/volume] in Bl ood by Automated countOrdered By: Allyson Munoz on 05-31-2025 Neutrophils (Bld) [#/Vol] 2.6 10*3/uL Normal 1.8-7.7 [facility] Comment on above: Performed By: #### C BC, BNP, HS TROP, BMP ####[place] [id number] [facility] Neutrophils/100 leukocytes i n Blood by Automated countOrdered By: Allyson Munoz on 05-31-2025 Neutrophils/100 WBC (Bld) 73.1 % Normal . [facility] Comment on above: Performed By: #### C BC, BNP, HS TROP, BMP ####[facility] [place] [phone] [facility] No Panel InformationOrdered By: Adrian Noland on 05-31-2025 Glu2: cleaned meter [facility] No Panel InformationOrdered By: Allyson Munoz on 05-31-2025 Pharmacy Creatinine Clearance (Chem 23.53 [facility] Nucleated erythrocytes [Pres ence] in Blood by Automated countOrdered By: Allyson Munoz on 05-31-2025 Nucleated RBC Auto Ql (Bld) 0.1 /100{WBC} 0-0.5 [facility] Platelet mean volume [Entiti c volume] in Blood by Automated countOrdered By: Allyson Munoz on 05-31-2025 Platelet mean volume (Bld) [Entitic vol] 8.0 fL Normal 6.6-10.1 [facility] Comment on above: Performed By: #### C BC, BNP, HS TROP, BMP ####[facility] [id number] Platelets [#/volume] in Bloo d by Automated countOrdered By: Allyson Munoz on 05-31-2025 Platelets (Bld) [#/Vol] 99 10*3/uL Low 150-450 [facility] Comment on above: Performed By: #### C BC, BNP, HS TROP, BMP ####[place] [address] [place] [phone] [facility] Potassium [Moles/volume] in Serum or PlasmaOrdered By: Allyson Munoz on 05-31-2025 Potassium [Moles/Vol] 3.8 mmol/L Normal 3.5-5.1 [facility] Comment on above: Performed By: #### C BC, BNP, HS TROP, BMP ####[place] [address] [place] [phone] [facility] Serum or plasma anion gap de terminationOrdered By: Allyson Munoz on 05-31-2025 Anion gap [Moles/Vol] 10.6 mmol/L Normal 6.0-15.0 [facility] Comment on above: Performed By: #### C BC, BNP, HS TROP, BMP ####[facility] [place] [phone] [facility] Sodium [Moles/volume] in Ser um or PlasmaOrdered By: Allyson Munoz on 05-31-2025 Sodium [Moles/Vol] 133 mmol/L Low 136-145 [facility] Comment on above: Performed By: #### C BC, BNP, HS TROP, BMP ####[address] [address] [facility] Troponin I High Sensitivityo n 05-31-2025 Troponin I High Sensitivity 73 Off scale high 0-20 [facility] Comment on above: Result Comment: Crit ical Result : Called to and read back by: LICHA HEREDIA at: 05/31/2025 21:57:25 by:[id number] The Troponin units of report have been changed to meet the Chest Pain Accreditation requirement, element EC5.M1l2. Troponin units are changed from pg/ml to ng/L. Also, the decimal is removed and results are in whole numbers.PERFORMED BY:[address] [place]EsaWO[place], [place] [phone] MEDICAL DIRECTORYAMINI METCALF M.D. Performed By: #### H S TROP ####[address] [address] [facility] Troponin I High Sensitivity 73 Off scale high 0-20 [facility] Comment on above: Result Comment: Crit ical Result : Called to and read back by: MISAEL GAY at: 05/31/2025 19:12:05 by:[id number] The Troponin units of report have been changed to meet the Chest Pain Accreditation requirement, element EC5.M1l2. Troponin units are changed from pg/ml to ng/L. Also, the decimal is removed and results are in whole numbers.PERFORMED BY:[address] [place]OFFEsaWO[place], [place] [phone] MEDICAL YECENIA METCALF M.D. Performed By: #### C BC, BNP, HS TROP, BMP ####[address] [address] [facility] Troponin I.cardiac [Mass/vol ume] in Serum or Plasma by Detection limit <= 0.01 ng/mLOrdered By: Allyson Munoz on 05-31-2025 Troponin I.cardiac DL <= 0.01 ng/mL [Mass/Vol] 73 ng/L Critically high 0-20 [facility] Comment on above: Critical Result : Ca lled to and read back by: LICHA HEREDIA at: 05/31/2025 21:57:25 by:[id number] Troponin units of report have been changed to meet the Chest Pain Accreditation requirement, element EC5.M1l2. Troponin units are changed from pg/ml to ng/L. Also, the decimal is removed and results are in whole numbers. Urea nitrogen [Mass/volume] in Serum or PlasmaOrdered By: Allyson Munoz on 05-31-2025 Urea nitrogen [Mass/Vol] 26 mg/dL High 7-25 [facility] Comment on above: Performed By: #### C BC, BNP, HS TROP, BMP ####[facility] [id number] X-ray reportOrdered By: Trenton Salinas on 05-31-2025 Study report [facility] [address] [place] [address] XRay Report Signed Patient: Yoel Werner MR#: [id number] : 1985 Acct:[id number] Age/Sex: 40 / M ADM Date: 5 Loc: ER Room: Type: [facility] ER Attending Dr: Copies to: Allyson Munoz MD~ Ordering Provider: Allyson Munoz MD Date of Service: 05/31/25 XR/XR chest 2V*: Chest Pain XR chest 2V* 05/31/2025 6:09 PM SIGNS AND SYMPTOMS: Chest Pain, dizziness, nausea, headache PROTOCOL: Frontal and lateral radiographs of the chest COMPARISON: 05/29/2025 FINDINGS: The trachea is midline. Atherosclerotic changes are noted in the aortic arch. The heart and mediastinal structures are within normal limits. The lung parenchyma is clear. The bony thorax is intact. XR/XR chest 2V* IMPRESSION: No acute cardiopulmonary pathology. Impression dictated by: Trenton Salinas M.D. 05/31/2025 6:34 PM Dictation Location: [place] [address] Transcribed By: BRENNAN 05/31/25 4163 Dictated By: Trenton Salinas II, MD 05/31/25 183 Signed By: 05/31/25 183 [facility] Work Phone: Study report [facility] Work Phone: XR chest 2V*on 05-31-2025 XR chest 2V* Normal [facility] Capillary blood glucose farida urement by glucometer (mass/volume)Ordered By: Tenzin Ortiz on 05-30-2025 Glucose [Mass/Vol] 150 mg/dL Normal [facility] Comment on above: Random Glucose Refer ence Range is dependent on time and content of last meal. Glucose of more than 200 mg/dL in a nonstressed, ambulatory subject supports the diagnosis of Diabetes Mellitus. Result Comment: [place] [facility] Glucose Reference Range is dependent on time and content of last meal. Glucose of more than 200 mg/dL in a nonstressed, ambulatory subject supports the diagnosis of Diabetes Mellitus.PERFORMED BY:[facility] [place], [place] [phone] MEDICAL DIRECTORYAMINI METCALF M.D. Performed By: #### G LUBOUBACAR ####Point of Care testing, XR chest 2V*on 05-30-2025 XR chest 2V* Normal [facility] Alanine aminotransferase [En zymatic activity/volume] in Serum or PlasmaOrdered By: Tenzin Ortiz on 05-29-2025 ALT [Catalytic activity/Vol] 10 U/L Normal 7-52 [facility] Comment on above: Performed By: #### C BC, CMP, BNP, CK, HS TROP ####[facility] [place] [address] [place] Albumin [Mass/volume] in Ser um or Plasma by Bromocresol green (BCG) dye binding methoOrdered By: Tenzin Ortiz on 05-29-2025 Albumin BCG dye [Mass/Vol] 4.0 g/dL 3.5-5.7 [facility] Alkaline phosphatase [Enzyma tic activity/volume] in Serum or PlasmaOrdered By: Tenzin Ortiz on 05-29-2025 ALP [Catalytic activity/Vol] 54 U/L Normal 34-104 [facility] Comment on above: Performed By: #### C BC, CMP, BNP, CK, HS TROP ####[place] [id number] [facility] Aspartate aminotransferase [ Enzymatic activity/volume] in Serum or PlasmaOrdered By: Tenzin Ortiz on 05-29-2025 AST [Catalytic activity/Vol] 12 U/L Low 13-39 [facility] Comment on above: Performed By: #### C BC, CMP, BNP, CK, HS TROP ####[place] [id number] [facility] BNP ser/plasOrdered By: Mark Ortiz on 05-29-2025 Natriuretic peptide B (Bld) [Mass/Vol] 7256.0 pg/mL High 5-100 [facility] Comment on above: Result Comment: PERF ORMED BY:[address] [place]WO[place], [place] [phone] MEDICAL DIRECTORYAMINI METCALF M.D. Performed By: #### C BC, CMP, BNP, CK, HS TROP ####[address] Basophils [#/volume] in Bloo d by Automated countOrdered By: Tenzin Ortiz on 05-29-2025 Basophils (Bld) [#/Vol] 0.1 10*3/uL Normal 0.0-0.2 [facility] Comment on above: Result Comment: PERF ORMED BY:[address] [place], [place] [phone] MEDICAL YECENIA METCALF M.D. Performed By: #### C BC, CMP, BNP, CK, HS TROP ####[place] [id number] [facility] Basophils/100 leukocytes in Blood by Automated countOrdered By: Tenzin Ortiz on 05-29-2025 Basophils/100 WBC (Bld) 1.4 % Normal . [facility] Comment on above: Performed By: #### C BC, CMP, BNP, CK, HS TROP ####[place] [id number] [facility] Bilirubin.total [Mass/volume ] in Serum or PlasmaOrdered By: Tenzin Ortiz on 05-29-2025 Bilirubin [Mass/Vol] 0.6 mg/dL Normal 0.3-1.0 [facility] Comment on above: Performed By: #### C BC, CMP, BNP, CK, HS TROP ####[address] Calcium [Mass/volume] in Ser um or PlasmaOrdered By: Tenzin Ortiz on 05-29-2025 Calcium [Mass/Vol] 9.2 mg/dL Normal 8.6-10.3 [facility] Comment on above: Performed By: #### C BC, CMP, BNP, CK, HS TROP ####[address] Carbon dioxide, total [Moles /volume] in Serum or PlasmaOrdered By: Tenzin Ortiz on 05-29-2025 CO2 [Moles/Vol] 26.2 mmol/L Normal 21.0-31.0 [facility] Comment on above: Performed By: #### C BC, CMP, BNP, CK, HS TROP ####[address] Chloride [Moles/volume] in S gretta or PlasmaOrdered By: Tenzin Ortiz on 05-29-2025 Chloride [Moles/Vol] 97 mmol/L Low 98-107 [facility] Comment on above: Performed By: #### C BC, CMP, BNP, CK, HS TROP ####[place] [id number] [facility] Complete Blood Count Auto Di ffon 05-29-2025 Mean Corpuscular HGB Conc 33.0 g/dL Normal 32.5-35.6 [facility] Comment on above: Performed By: #### C BC, CMP, BNP, CK, HS TROP ####[address] Monocytes/100 WBC (Bld) 15.83 % Normal 0.00-20.00 T julianna [facility] Comment on above: Performed By: #### C BC, CMP, BNP, CK, HS TROP ####[facility] NRBC% 0.2 /100{WBC} Normal 0-0.5 [facility] Comment on above: Performed By: #### C BC, CMP, BNP, CK, HS TROP ####[address] White Blood Count 4.4 [CFU]/mL Normal 4.1-10.5 [facility] Comment on above: Performed By: #### C BC, CMP, BNP, CK, HS TROP ####[address] Comprehensive Metabolic Pane dioni 05-29-2025 Albumin [Mass/Vol] 4.0 g/dL Normal 3.5-5.7 [facility] Comment on above: Performed By: #### C BC, CMP, BNP, CK, HS TROP ####[address] Creatinine Clr Calc Pharmacy 16.15 Normal [facility] Comment on above: Result Comment: PERF ORMED BY:[address] [place]NRodríguezEsaWO[place], [place] [phone] MEDICAL YECENIA METCALF M.D. Performed By: #### C BC, CMP, BNP, CK, HS TROP ####[address] GFR/1.73 sq M.predicted MDRD (S/P/Bld) [Vol rate/Area] 9.938 mL/min/{1.73_m2} Normal [facility] Comment on above: Performed By: #### C BC, CMP, BNP, CK, HS TROP ####[address] Creatine kinase [Enzymatic a ctivity/volume] in Serum or PlasmaOrdered By: Tenzin Ortiz on 05-29-2025 CK [Catalytic activity/Vol] 68 U/L Normal 30-223 [facility] Comment on above: Performed By: #### C BC, CMP, BNP, CK, HS TROP ####[address] Creatinine [Mass/volume] in Serum or PlasmaOrdered By: Tenzin Ortiz on 05-29-2025 Creatinine [Mass/Vol] 6.71 mg/dL High 0.70-1.30 [facility] Comment on above: Performed By: #### C BC, CMP, BNP, CK, HS TROP ####[address] ECG 12 lead ECGon 05-29-2025 ECG 12 lead ECG Normal [facility] Eosinophils [#/volume] in Bl ood by Automated countOrdered By: Tenzin Ortiz on 05-29-2025 Eosinophils (Bld) [#/Vol] 0.2 10*3/uL Normal 0.0-0.45 [facility] Comment on above: Performed By: #### C BC, CMP, BNP, CK, HS TROP ####[address] Eosinophils/100 leukocytes i n Blood by Automated countOrdered By: Tenzin Ortiz on 05-29-2025 Eosinophils/100 WBC (Bld) 4.5 % Normal . [facility] Comment on above: Performed By: #### C BC, CMP, BNP, CK, HS TROP ####[address] Erythrocyte distribution wid th [Ratio] by Automated countOrdered By: Tenzin Ortiz on 05-29-2025 Erythrocyte distribution width (RBC) [Ratio] 16.7 % High 12.0-14.8 [facility] Comment on above: Performed By: #### C BC, CMP, BNP, CK, HS TROP ####[address] Erythrocytes [#/volume] in B lood by Automated countOrdered By: Tenzin Ortiz on 05-29-2025 RBC (Bld) [#/Vol] 4.04 10*6/uL Normal 3.90-5.60 [facility] Comment on above: Performed By: #### C BC, CMP, BNP, CK, HS TROP ####[facility] [facility]illing[address] [facility] [place] [address] [place] Glomerular filtration rate [ Volume Rate/Area] in Serum, Plasma or Blood by CreatinineOrdered By: Tenzin Ortiz on 05-29-2025 Glomerular filtration rate [Volume Rate/Area] in Serum, Plasma or Blood by Creatinine 9.938 mL/Min [facility] Glucose Poct Glucometerson 1 Glucose [Mass/Vol] 111 mg/dL Normal [facility] Comment on above: Result Comment: [place] [facility] Glucose Reference Range is dependent on time and content of last meal. Glucose of more than 200 mg/dL in a nonstressed, ambulatory subject supports the diagnosis of Diabetes Mellitus.PERFORMED BY:[place] [address] [address] [place] [phone] MEDICAL YECENIA METCALF M.D. Performed By: #### G ASHLEY ####Point of Care testing, Glucose [Mass/Vol] 137 mg/dL Normal [facility] Comment on above: Result Comment: [place] Glucose Reference Range is dependent on time and content of last meal. Glucose of more than 200 mg/dL in a nonstressed, ambulatory subject supports the diagnosis of Diabetes Mellitus.PERFORMED BY:[place] [address] [place], [place] [phone] MEDICAL YECENIA METCALF M.D. Performed By: #### G LUBOUBACAR ####Point of Care testing, Glucose [Mass/volume] in Ser um or PlasmaOrdered By: Tenzin Ortiz on 05-29-2025 Glucose [Mass/Vol] 110 mg/dL High 70-100 [facility] Comment on above: ADA recommended refe rence rangeRandom Glucose Reference Range is dependent on time and content of last meal. Glucose of more than 200 mg/dL in a nonstressed, ambulatory subject supports the diagnosis of Diabetes Mellitus. Result Comment: [place] Glucose Reference Range is dependent on time and content of last meal. Glucose of more than 200 mg/dL in a nonstressed, ambulatory subject supports the diagnosis of Diabetes Mellitus. ADA recommended reference range Performed By: #### C BC, CMP, BNP, CK, HS TROP ####[address] Hematocrit [Volume Fraction] of Blood by Automated countOrdered By: Tenzin Ortiz on 05-29-2025 Hematocrit (Bld) [Volume fraction] 34.9 % Low 38.8-50.0 [facility] Comment on above: Performed By: #### C BC, CMP, BNP, CK, HS TROP ####[address] Hemoglobin [Mass/volume] in BloodOrdered By: Tenzin Ortiz on 05-29-2025 Hemoglobin (Bld) [Mass/Vol] 11.5 g/dL Low 13.0-17.0 [facility] Comment on above: Performed By: #### C BC, CMP, BNP, CK, HS TROP ####[address] Leukocytes [#/volume] correc celena for nucleated erythrocytes in Blood by Automated counOrdered By: Tenzin Ortiz on 05-29-2025 WBC corrected for nucl RBC Auto (Bld) [#/Vol] 4.4 10*3/uL 4.1-10.5 [facility] Leukocytes [#/volume] in Blo od by Automated countOrdered By: Tenzin Ortiz on 05-29-2025 WBC (Bld) [#/Vol] 4.4 10*3/uL Normal 4.1-10.5 [facility] Comment on above: Performed By: #### C BC, CMP, BNP, CK, HS TROP ####[address] Lymphocytes [#/volume] in Bl ood by Automated countOrdered By: Tenzin Ortiz on 05-29-2025 Lymphocytes (Bld) [#/Vol] 0.8 10*3/uL Low 1.00-4.8 [facility] Comment on above: Performed By: #### C BC, CMP, BNP, CK, HS TROP ####[address] Lymphocytes/100 leukocytes i n Blood by Automated countOrdered By: Tenzin Ortiz on 05-29-2025 Lymphocytes/100 WBC (Bld) 17.5 % Normal . [facility] Comment on above: Performed By: #### C BC, CMP, BNP, CK, HS TROP ####[address] MCH [Entitic mass] by Automa celena countOrdered By: Tenzin Ortiz on 05-29-2025 MCH (RBC) [Entitic mass] 28.5 pg Normal 27.5-35.2 [facility] Comment on above: Performed By: #### C BC, CMP, BNP, CK, HS TROP ####[address] MCHC Auto (RBC) [Mass/Vol]Or dered By: Tenzin Ortiz on 05-29-2025 MCHC (RBC) [Mass/Vol] 33.0 g/dL 32.5-35.6 [facility] MCV [Entitic volume] by Auto mated countOrdered By: Tenzin Ortiz on 05-29-2025 MCV (RBC) [Entitic vol] 86.3 fL Normal 83.5-101 [facility] Comment on above: Performed By: #### C BC, CMP, BNP, CK, HS TROP ####[address] Monocyte distribution width [Entitic volume] in Blood by AutomatedOrdered By: Tenzin Ortiz on 05-29-2025 Monocyte distribution width Auto (Bld) [Entitic vol] 15.83 % 0.00-20.00 [facility] Monocytes [#/volume] in Bloo d by Automated countOrdered By: Tenzin Ortiz on 05-29-2025 Monocytes (Bld) [#/Vol] 0.3 10*3/uL Normal 0.0-0.8 [facility] Comment on above: Performed By: #### C BC, CMP, BNP, CK, HS TROP ####[address] Monocytes/100 leukocytes in Blood by Automated countOrdered By: Tenzin Ortiz on 05-29-2025 Monocytes/100 WBC (Bld) 7.9 % Normal . [facility] Comment on above: Performed By: #### C BC, CMP, BNP, CK, HS TROP ####[place] [id number] Neutrophils [#/volume] in Bl ood by Automated countOrdered By: Tenzin Ortiz on 05-29-2025 Neutrophils (Bld) [#/Vol] 3.0 10*3/uL Normal 1.8-7.7 [facility] Comment on above: Performed By: #### C BC, CMP, BNP, CK, HS TROP ####[address] Neutrophils/100 leukocytes i n Blood by Automated countOrdered By: Tenzin Ortiz on 05-29-2025 Neutrophils/100 WBC (Bld) 68.7 % Normal . [facility] Comment on above: Performed By: #### C BC, CMP, BNP, CK, HS TROP ####[place] [id number] No Panel InformationOrdered By: Tenzin Ortiz on 05-29-2025 Pharmacy Creatinine Clearance (Chem 16.15 [facility] 16.15 [facility] Nucleated erythrocytes [Pres ence] in Blood by Automated countOrdered By: Tenzin Ortiz on 05-29-2025 Nucleated RBC Auto Ql (Bld) 0.2 /100{WBC} 0-0.5 [facility] Platelet mean volume [Entiti c volume] in Blood by Automated countOrdered By: Tenzin Ortiz on 05-29-2025 Platelet mean volume (Bld) [Entitic vol] 8.2 fL Normal 6.6-10.1 [facility] Comment on above: Performed By: #### C BC, CMP, BNP, CK, HS TROP ####[place] [id number] Platelets [#/volume] in Bloo d by Automated countOrdered By: Tenzin Ortiz on 05-29-2025 Platelets (Bld) [#/Vol] 111 10*3/uL Low 150-450 [facility] Comment on above: Performed By: #### C BC, CMP, BNP, CK, HS TROP ####[address] Potassium [Moles/volume] in Serum or PlasmaOrdered By: Tenzin Ortiz on 05-29-2025 Potassium [Moles/Vol] 4.0 mmol/L Normal 3.5-5.1 [facility] Comment on above: Performed By: #### C BC, CMP, BNP, CK, HS TROP ####[address] Protein [Mass/volume] in Ser um or PlasmaOrdered By: Tenzin Ortiz on 05-29-2025 Protein [Mass/Vol] 6.8 g/dL Normal 6.4-8.9 [facility] Comment on above: Performed By: #### C BC, CMP, BNP, CK, HS TROP ####[address] Serum globulin measurement b y calculation (mass/volume)Ordered By: Tenzin Ortiz on 05-29-2025 Globulin (S) [Mass/Vol] 2.8 g/dL Normal [facility] Comment on above: Performed By: #### C BC, CMP, BNP, CK, HS TROP ####[address] Serum or plasma albumin/glob ulin mass ratioOrdered By: Tenzin Ortiz on 05-29-2025 Albumin/Globulin [Mass ratio] 1.4 {ratio} [facility] Comment on above: Performed By: #### C BC, CMP, BNP, CK, HS TROP ####[address] Serum or plasma anion gap de terminationOrdered By: Tenzin Ortiz on 05-29-2025 Anion gap [Moles/Vol] 14.8 mmol/L Normal 6.0-15.0 [facility] Comment on above: Performed By: #### C BC, CMP, BNP, CK, HS TROP ####[address] Sodium [Moles/volume] in Ser um or PlasmaOrdered By: Tenzin Ortiz on 05-29-2025 Sodium [Moles/Vol] 134 mmol/L Low 136-145 [facility] Comment on above: Performed By: #### C BC, CMP, BNP, CK, HS TROP ####[address] [address] [facility] Troponin I High Sensitivityo n 05-29-2025 Troponin I High Sensitivity 70 Off scale high 0-20 [facility] Comment on above: Result Comment: Crit ical Result : Called to and read back by: YULISSA UGALDE at: 05/30/2025 01:12:17 by:MIGUEL The Troponin units of report have been changed to meet the Chest Pain Accreditation requirement, element EC5.M1l2. Troponin units are changed from pg/ml to ng/L. Also, the decimal is removed and results are in whole numbers.PERFORMED BY:[address] [place], [place] [phone] MEDICAL DIRECTORYAMINI METCALF M.D. Performed By: #### H S TROP ####[address] [address] [facility] Troponin I High Sensitivity 60 Off scale high 0-20 [facility] Comment on above: Result Comment: Crit ical Result : Called to and read back by: SANDRA BERGMAN at: 05/29/2025 22:33:30 by:AC The Troponin units of report have been changed to meet the Chest Pain Accreditation requirement, element EC5.M1l2. Troponin units are changed from pg/ml to ng/L. Also, the decimal is removed and results are in whole numbers.PERFORMED BY:[address] [place], [place] [phone] MEDICAL YECENIA METCALF M.D. Performed By: #### C BC, CMP, BNP, CK, HS TROP ####[address] [address] [facility] Troponin I.cardiac [Mass/vol ume] in Serum or Plasma by Detection limit <= 0.01 ng/mLOrdered By: Tenzin Ortiz on 05-29-2025 Troponin I.cardiac DL <= 0.01 ng/mL [Mass/Vol] 70 ng/L Critically high 0-20 [facility] Comment on above: Critical Result : Ca lled to and read back by: YULISSA UGALDE at: 05/30/2025 01:12:17 by:DHThe Troponin units of report have been changed to meet the Chest Pain Accreditation requirement, element EC5.M1l2. Troponin units are changed from pg/ml to ng/L. Also, the decimal is removed and results are in whole numbers. Urea nitrogen [Mass/volume] in Serum or PlasmaOrdered By: Tenzin Ortiz on 05-29-2025 Urea nitrogen [Mass/Vol] 44 mg/dL High 7-25 [facility] Comment on above: Performed By: #### C BC, CMP, BNP, CK, HS TROP ####[facility] [id number] [place], [place] [address] [facility] Appearance of UrineOrdered B y: Angie Benavides on 05-06-2025 Appearance (U) Clear Normal Clear [facility] Comment on above: Order Comment: Name Collection Type:: Clean-Voided Midstream Performed By: #### A DDONUAPLUS ####[place] [id number] [facility] Bacteria [Presence] in Urine by AutomatedOrdered By: Angie Benavides on 05-06-2025 Bacteria Auto Ql (U) None seen [HPF] None Seen [facility] Bilirubin Test strip Ql (U)O rdered By: Angie Benavides on 05-06-2025 Bilirubin Ql (U) Negative Negative [facility] Capillary blood glucose farida urement by glucometer (mass/volume)Ordered By: Nadeen Grant on 05-06-2025 Glucose [Mass/Vol] 243 mg/dL Normal [facility] Comment on above: Random Glucose Refer ence Range is dependent on time and content of last meal. Glucose of more than 200 mg/dL in a nonstressed, ambulatory subject supports the diagnosis of Diabetes Mellitus. Result Comment: [place] Glucose Reference Range is dependent on time and content of last meal. Glucose of more than 200 mg/dL in a nonstressed, ambulatory subject supports the diagnosis of Diabetes Mellitus.PERFORMED BY:[place] [address] [address] [place], [place] [phone] MEDICAL YECENIA METCALF M.D. Performed By: #### G LULS ####Point of Care testing, Color of Urine by AutoOrdere d By: Angie Benavides on 05-06-2025 Color (U) Light-yellow Normal Yellow [facility] Comment on above: Order Comment: Name Collection Type:: Clean-Voided Midstream Performed By: #### A DDONUAPLUS ####[address] [address] [facility] Dipstick and Microscopicon 0 05-06-2025 Bacteria,Urine None Seen Normal None Seen [facility] Comment on above: Order Comment: Name Collection Type:: Clean-Voided Midstream Performed By: #### A DDONUAPLUS ####[address] [address] [facility] Bilirubin,Urine Negative Normal Negative [facility] Comment on above: Order Comment: Name Collection Type:: Clean-Voided Midstream Performed By: #### A DDONUAPLUS ####[address] [address] [facility] Glucose Ql (U) 200 mg/dL Normal Normal [facility] Comment on above: Order Comment: Name Collection Type:: Clean-Voided Midstream Performed By: #### A DDONUAPLUS ####[address] [address] [facility] Hyaline Casts,Urine 0-8 Normal 0-8 [facility] Comment on above: Order Comment: Name Collection Type:: Clean-Voided Midstream Performed By: #### A DDONUAPLUS ####[address] [address] [facility] Mucus,Urine Rare Normal [facility] Comment on above: Order Comment: Name Collection Type:: Clean-Voided Midstream Result Comment: PERF ORMED BY:[place] [address] [place] [place], [place] [phone] MEDICAL YECENIA METCALF M.D. Performed By: #### A DDONUAPLUS ####[address] [address] [facility] Nitrite,Urine Negative Normal Negative [facility] Comment on above: Order Comment: Name Collection Type:: Clean-Voided Midstream Performed By: #### A DDONUAPLUS ####[address] [address] [facility] Occult Blood,Urine 1+ Normal Negative [facility] Comment on above: Order Comment: Name Collection Type:: Clean-Voided Midstream Result Comment: PERF ORMED BY:[address] [place], [place] [phone] MEDICAL DIRECTORYAMINI METCALF M.D. Performed By: #### A DDONUAPLUS ####[address] [address] [facility] RBC,Urine 3-4 Normal 0-4 [facility] Comment on above: Order Comment: Name Collection Type:: Clean-Voided Midstream Performed By: #### A DDONUAPLUS ####[address] [address] [facility] Specificy [place],Urine 1.008 Normal 1.001-1.030 [facility] Comment on above: Order Comment: Name Collection Type:: Clean-Voided Midstream Performed By: #### A DDONUAPLUS ####[address] [address] [facility] Squamous Epithelial Cell,Urine 1-2 Normal 0-2 [facility] Comment on above: Order Comment: Name Collection Type:: Clean-Voided Midstream Performed By: #### A DDONUAPLUS ####[address] [address] [facility] Urobilinogen,Urine Normal Normal Normal [facility] Comment on above: Order Comment: Name Collection Type:: Clean-Voided Midstream Performed By: #### A DDONUAPLUS ####[address] [address] [facility] WBC,Urine 3-4 Normal 0-4 [facility] Comment on above: Order Comment: Name Collection Type:: Clean-Voided Midstream Performed By: #### A DDONUAPLUS ####[facility] [place] [address] [facility] Epithelial cells.squamous [# /area] in Urine sediment by Automated countOrdered By: Angie Benavides on 05-06-2025 Epithelial cells.squamous Auto (Urine sed) [#/Area] 1-2 [HPF] 0-2 [facility] Erythrocytes [#/area] in Uri ne sediment by Automated countOrdered By: Angie Benavides on 05-06-2025 RBC Auto (Urine sed) [#/Area] 3-4 [HPF] 0-4 [facility] Glucose Poct Glucometerson 0 05-06-2025 Glucose [Mass/Vol] 231 mg/dL Normal [facility] Comment on above: Result Comment: [place] Glucose Reference Range is dependent on time and content of last meal. Glucose of more than 200 mg/dL in a nonstressed, ambulatory subject supports the diagnosis of Diabetes Mellitus.PERFORMED BY:[place] [address] [address] [place], [place] [phone] MEDICAL DIRECTORYAMINI METCALF M.D. Performed By: #### G LULS ####Point of Care testing, Commemt1 Glu2: Cleaned Meter Normal [facility] Comment on above: Result Comment: PERF ORMED BY:[address] [place]sa[place], [place] [phone] MEDICAL YECENIA METCALF M.D. Performed By: #### G LULS ####Point of Care testing, Glucose [Mass/Vol] 217 mg/dL Normal [facility] Comment on above: Result Comment: [place] Glucose Reference Range is dependent on time and content of last meal. Glucose of more than 200 mg/dL in a nonstressed, ambulatory subject supports the diagnosis of Diabetes Mellitus. Performed By: #### G LULS ####Point of Care testing, Glucose [Mass/Vol] 183 mg/dL Normal [facility] Comment on above: Result Comment: [place] Glucose Reference Range is dependent on time and content of last meal. Glucose of more than 200 mg/dL in a nonstressed, ambulatory subject supports the diagnosis of Diabetes Mellitus.PERFORMED BY:[place] [address] [address] [place], [place] [phone] MEDICAL YECENIA METCALF M.D. Performed By: #### G LULS ####Point of Care testing, Commemt1 Glu2: Cleaned Meter Normal [facility] Comment on above: Result Comment: PERF ORMED BY:[address] [place], [place] [phone] MEDICAL YECENIA METCALF M.D. Performed By: #### G LULS ####Point of Care testing, Glucose [Mass/Vol] 128 mg/dL Normal [facility] Comment on above: Result Comment: [place] Glucose Reference Range is dependent on time and content of last meal. Glucose of more than 200 mg/dL in a nonstressed, ambulatory subject supports the diagnosis of Diabetes Mellitus. Performed By: #### G LULS ####Point of Care testing, Glucose [Mass/Vol] 116 mg/dL Normal [facility] Comment on above: Result Comment: [place] Glucose Reference Range is dependent on time and content of last meal. Glucose of more than 200 mg/dL in a nonstressed, ambulatory subject supports the diagnosis of Diabetes Mellitus.PERFORMED BY:[address] [place], [place] [phone] MEDICAL YECENIA METCALF M.D. Performed By: #### G LULS ####Point of Care testing, Commemt1 Glu2: Cleaned Meter Normal [facility] Comment on above: Performed By: #### G LULS ####Point of Care testing, Commemt2 WILL NOTIFY DR/RN Normal [facility] Comment on above: Result Comment: PERF ORMED BY:[address] [place], [place] [phone] TRAN METCALF M.D. Performed By: #### G LULS ####Point of Care testing, Glucose [Mass/Vol] 59 mg/dL Off scale low [facility] Comment on above: Result Comment: [place] Glucose Reference Range is dependent on time and content of last meal. Glucose of more than 200 mg/dL in a nonstressed, ambulatory subject supports the diagnosis of Diabetes Mellitus. Performed By: #### G LULS ####Point of Care testing, Glucose [Mass/Vol] 73 mg/dL Normal [facility] Comment on above: Result Comment: [place] Glucose Reference Range is dependent on time and content of last meal. Glucose of more than 200 mg/dL in a nonstressed, ambulatory subject supports the diagnosis of Diabetes Mellitus.PERFORMED BY:[facility] [place], [place] [phone] MEDICAL DIRECTORYAMINI METCALF M.D. Performed By: #### G LULS ####Point of Care testing, Glucose [Mass/volume] in Uri ne by Test stripOrdered By: Angie Benavides on 05-06-2025 Glucose Test strip (U) [Mass/Vol] 200 mg/dL High Normal [facility] Hemoglobin Test strip Ql (U) Ordered By: Angie Benavides on 05-06-2025 Hemoglobin Ql (U) 1+ High Negative [facility] Hyaline casts [#/area] in Ur ine sediment by Automated countOrdered By: Angie Benavides on 05-06-2025 Hyaline casts Auto (Urine sed) [#/Area] 0-8 [LPF] 0-8 [facility] Ketones [Presence] in Urine by Test stripOrdered By: Angie Benavides on 05-06-2025 Ketones Ql (U) Negative Normal Negative [facility] Comment on above: Order Comment: Name Collection Type:: Clean-Voided Midstream Performed By: #### A DDONUAPLUS ####[facility] [id number] [place] [address] [facility] Leukocyte esterase [Presence ] in Urine by Test stripOrdered By: Angie Benavides on 05-06-2025 Leukocyte esterase Test strip Ql (U) Negative Normal Negative [facility] Comment on above: Order Comment: Name Collection Type:: Clean-Voided Midstream Performed By: #### A DDONUAPLUS ####[facility] [id number] [place] [id number] [facility] Leukocytes [#/area] in Urine sediment by Automated countOrdered By: Angie Benavides on 05-06-2025 WBC Auto (Urine sed) [#/Area] 3-4 [HPF] 0-4 [facility] Mucus [Presence] in Urine by AutomatedOrdered By: Angie Benavides on 05-06-2025 Mucus Auto Ql (U) Rare [LPF] [facility] Nitrite Test strip Ql (U)Ord ered By: Angie Benavides on 05-06-2025 Nitrite Ql (U) Negative Negative [facility] No Panel InformationOrdered By: Angie Benavides on 05-06-2025 Bedside Glucose Comment Glu2: cleaned meter [facility] Glu2: cleaned meter [facility] Bedside Glucose #[address]/tere [facility] Will notify dr/teer [facility] Blood Gas Critical Value See comment [facility] Comment on above: Critical Value lion d on: 05/06/2025 at 00:04 Blood Gas Sample Site Venous Fir [facility] FiO2 21 % [facility] Venous Blood Base Excess 4.4 mmol/L High -3.0-3.0 [facility] Venous Blood Oxygen Content 7.4 mmol/L 6.6-9.7 [facility] Venous Blood Oxygen Saturation 93.6 % Critically high 73.0-76.0 [facility] Venous Blood Partial Pressure CO2 40.4 mm[Hg] 38.0-50.0 [facility] Venous Blood Partial Pressure O2 68.0 mm[Hg] High 35.0-45.0 [facility] Venous Blood pH 7.47 High 7.32-7.43 [facility] 7.47 High 7.32-7.43 [facility] 40.4 mm[Hg] 38.0-50.0 [facility] 68.0 mm[Hg] High 35.0-45.0 [facility] 28.5 mmol/L 23.0-29.0 [facility] 4.4 mmol/L High -3.0-3.0 [facility] 93.6 % Critically high 73.0-76.0 [facility] 7.4 mmol/L 6.6-9.7 [facility] 29.7 mmol/L High 24.0-29.0 [facility] 21 % [facility] Venous [facility] See comment [facility] Protein [Mass/volume] in Uri ne by Test stripOrdered By: Angie Benavides on 05-06-2025 Protein (U) [Mass/Vol] 200 mg/dL Normal Negative [facility] Comment on above: Order Comment: Name Collection Type:: Clean-Voided Midstream Performed By: #### A DDONUAPLUS ####[facility] [place] [address] [facility] Specific gravity Test strip (U) [Rel density]Ordered By: Angie Benavides on 05-06-2025 Specific gravity (U) [Rel density] 1.008 1.001-1.030 [facility] Urobilinogen Test strip (U) [Mass/Vol]Ordered By: Angie Benavides on 05-06-2025 Urobilinogen (U) [Mass/Vol] Normal mg/dL Normal [facility] Venous Blood GasOrdered By: Angie Benavides on 05-06-2025 CO2 [Moles/Vol] 29.7 mmol/L High 24.0-29.0 [facility] Comment on above: Performed By: #### V BG ####Point of Care testing, HCO3 (Bld) [Moles/Vol] 28.5 mmol/L Normal 23.0-29.0 [facility] Comment on above: Performed By: #### V BG ####Point of Care testing, Venous Blood Gason Respiratory Critical Normal [facility] Comment on above: Result Comment: Crit ical Value called on: 05/06/2025 at 00:04PERFORMED BY:[facility] [place], [place] [phone] MEDICAL DIRECTORYAMINI METCALF M.D. Performed By: #### V BG ####Point of Care testing, VBG Base Excess 4.4 mmol/L High -3.0-3.0 [facility] Comment on above: Performed By: #### V BG ####Point of Care testing, VBG Draw Site Venous Normal [facility] Comment on above: Performed By: #### V BG ####Point of Care testing, VBG Frac Inspired O2 21 % Normal [facility] Comment on above: Performed By: #### V BG ####Point of Care testing, VBG O2 Content 7.4 mmol/L Normal 6.6-9.7 [facility] Comment on above: Performed By: #### V BG ####Point of Care testing, VBG Oxygen Saturation 93.6 % Off scale high 73.0-76.0 [facility] Comment on above: Performed By: #### V BG ####Point of Care testing, VBG PCO2 40.4 mm[Hg] Normal 38.0-50.0 [facility] Comment on above: Performed By: #### V BG ####Point of Care testing, VBG PH Venous PH 7.47 High 7.32-7.43 [facility] Comment on above: Performed By: #### V BG ####Point of Care testing, VBG PO2 68.0 mm[Hg] High 35.0-45.0 [facility] Comment on above: Performed By: #### V BG ####Point of Care testing, pH of Urine by Test stripOrd ered By: Angie Benavides on 05-06-2025 pH (U) 8.0 [pH] Normal 5.0-9.0 [facility] Comment on above: Order Comment: Name Collection Type:: Clean-Voided Midstream Performed By: #### A DDONUAPLUS ####[facility] [id number] [place] [address] [facility] Alanine aminotransferase [En zymatic activity/volume] in Serum or PlasmaOrdered By: Angie Benavides on 05-05-2025 ALT [Catalytic activity/Vol] 10 U/L Normal 7-52 [facility] Comment on above: Performed By: #### C BC, CMP ####[place] [id number] [place] Albumin [Mass/volume] in Ser um or Plasma by Bromocresol green (BCG) dye binding methoOrdered By: Angie Benavides on 05-05-2025 Albumin BCG dye [Mass/Vol] 4.8 g/dL 3.5-5.7 [facility] Alkaline phosphatase [Enzyma tic activity/volume] in Serum or PlasmaOrdered By: Angie Benavides on 05-05-2025 ALP [Catalytic activity/Vol] 60 U/L Normal 34-104 [facility] Comment on above: Performed By: #### C BC, CMP ####[place] [id number] [facility] Aspartate aminotransferase [ Enzymatic activity/volume] in Serum or PlasmaOrdered By: Angie Benavides on 05-05-2025 AST [Catalytic activity/Vol] 15 U/L Normal 13-39 [facility] Comment on above: Performed By: #### C BC, CMP ####[place] [id number] [place] Basophils [#/volume] in Bloo d by Automated countOrdered By: Angie Benavides on 05-05-2025 Basophils (Bld) [#/Vol] 0.1 10*3/uL Normal 0.0-0.2 [facility] Comment on above: Result Comment: PERF ORMED BY:[address] [place], [place] [id number] MEDICAL DIRECTORYAMINI METCALF M.D. Performed By: #### C BC, CMP ####[place] [id number] [place] Basophils/100 leukocytes in Blood by Automated countOrdered By: Angie Benavides on 05-05-2025 Basophils/100 WBC (Bld) 2.4 % Normal . [facility] Comment on above: Performed By: #### C BC, CMP ####[address] [address] [facility] Bilirubin.total [Mass/volume ] in Serum or PlasmaOrdered By: Angie Benavides on 05-05-2025 Bilirubin [Mass/Vol] 0.7 mg/dL Normal 0.3-1.0 [facility] Comment on above: Performed By: #### C BC, CMP ####[place] [id number] [facility] Calcium [Mass/volume] in Ser um or PlasmaOrdered By: Angie Nagaamanuel on 05-05-2025 Calcium [Mass/Vol] 9.9 mg/dL Normal 8.6-10.3 [facility] Comment on above: Performed By: #### C BC, CMP ####[place] [id number] [facility] Carbon dioxide, total [Moles /volume] in Serum or PlasmaOrdered By: Angie Benavides on 05-05-2025 CO2 [Moles/Vol] 29.3 mmol/L Normal 21.0-31.0 [facility] Comment on above: Performed By: #### C BC, CMP ####[place] [id number] [place] Chloride [Moles/volume] in S gretta or PlasmaOrdered By: Angie Nagaamanuel on 05-05-2025 Chloride [Moles/Vol] 94 mmol/L Low 98-107 [facility] Comment on above: Performed By: #### C BC, CMP ####[address] [address] [facility] Complete Blood Count Auto Di ffon 05-05-2025 Mean Corpuscular HGB Conc 33.0 g/dL Normal 32.5-35.6 [facility] Comment on above: Performed By: #### C BC, CMP ####[address] [address] [place] Monocytes/100 WBC (Bld) 17.15 % Normal 0.00-20.00 [facility] Comment on above: Performed By: #### C BC, CMP ####[address] [address] [facility] NRBC% 0.2 /100{WBC} Normal 0-0.5 [facility] Comment on above: Performed By: #### C BC, CMP ####[address] [address] [facility] White Blood Count 4.7 [CFU]/mL Normal 4.1-10.5 [facility] Comment on above: Performed By: #### C BC, CMP ####[address] [address] [facility] Comprehensive Metabolic Pane dioni 05-05-2025 Albumin [Mass/Vol] 4.8 g/dL Normal 3.5-5.7 [facility] Comment on above: Performed By: #### C BC, CMP ####[address] [address] [facility] Creatinine Clr Calc Pharmacy 26.42 Normal [facility] Comment on above: Result Comment: PERF ORMED BY:[address] [place] [id number] MEDICAL YECENIA METCALF M.D. Performed By: #### C BC, CMP ####[address] [address] [facility] GFR/1.73 sq M.predicted MDRD (S/P/Bld) [Vol rate/Area] 17.436 mL/min/{1.73_m2} Normal [facility] Comment on above: Performed By: #### C BC, CMP ####[address] [address] [facility] Creatinine [Mass/volume] in Serum or PlasmaOrdered By: Angie Benavides on 05-05-2025 Creatinine [Mass/Vol] 4.20 mg/dL High 0.70-1.30 [facility] Comment on above: Performed By: #### C BC, CMP ####[address] [address] [facility] ECG 12 lead ECGon 05-05-2025 ECG 12 lead ECG Normal [facility] Eosinophils [#/volume] in Bl ood by Automated countOrdered By: Angie Benavides on 05-05-2025 Eosinophils (Bld) [#/Vol] 0.2 10*3/uL Normal 0.0-0.45 [facility] Comment on above: Performed By: #### C BC, CMP ####[place] [id number] [address] Eosinophils/100 leukocytes i n Blood by Automated countOrdered By: Angie Benavides on 05-05-2025 Eosinophils/100 WBC (Bld) 4.8 % Normal . [facility] Comment on above: Performed By: #### C NEREIDA, CMP ####[place] [address] [address] Erythrocyte distribution wid th [Ratio] by Automated countOrdered By: Angie Benavides on 05-05-2025 Erythrocyte distribution width (RBC) [Ratio] 19.6 % High 12.0-14.8 [facility] Comment on above: Performed By: #### C NEREIDA, CMP ####[address] Erythrocytes [#/volume] in B lood by Automated countOrdered By: Angie Benavides on 05-05-2025 RBC (Bld) [#/Vol] 4.16 10*6/uL Normal 3.90-5.60 [facility] Comment on above: Performed By: #### C NEREIDA, CMP ####[address] Glomerular filtration rate [ Volume Rate/Area] in Serum, Plasma or Blood by CreatinineOrdered By: Angie Benavides on 05-05-2025 Glomerular filtration rate [Volume Rate/Area] in Serum, Plasma or Blood by Creatinine 17.436 mL/Min [facility] Glucose Poct Glucometerson 0 05-05-2025 Glucose [Mass/Vol] 140 mg/dL Normal [facility] Comment on above: Result Comment: [place] Glucose Reference Range is dependent on time and content of last meal. Glucose of more than 200 mg/dL in a nonstressed, ambulatory subject supports the diagnosis of Diabetes Mellitus.PERFORMED BY:[place] [address] [address] [place], [place] [phone] MEDICAL YECEINA METCLAF M.D. Performed By: #### G LULS ####Point of Care testing, Commemt1 Normal [facility] Comment on above: Result Comment: Glu2 : Result Not ConfirmedPERFORMED BY:[address] HOFFEsa[place]ARG[place], [place] [phone] MEDICAL YECENIA METCALF M.D. Performed By: #### G LULS ####Point of Care testing, Glucose [Mass/Vol] 50 mg/dL Off scale low [facility] Comment on above: Result Comment: [place] om Glucose Reference Range is dependent on time and content of last meal. Glucose of more than 200 mg/dL in a nonstressed, ambulatory subject supports the diagnosis of Diabetes Mellitus. Performed By: #### G LULS ####Point of Care testing, Glucose [Mass/Vol] 74 mg/dL Normal [facility] Comment on above: Result Comment: [place] om Glucose Reference Range is dependent on time and content of last meal. Glucose of more than 200 mg/dL in a nonstressed, ambulatory subject supports the diagnosis of Diabetes Mellitus.PERFORMED BY:[address] HOFFEasÓSC[place], [place] [id number] MEDICAL YECENIA METCALF M.D. Performed By: #### G LULS ####Point of Care testing, Glucose [Mass/Vol] 64 mg/dL Normal [facility] Comment on above: Result Comment: [place] om Glucose Reference Range is dependent on time and content of last meal. Glucose of more than 200 mg/dL in a nonstressed, ambulatory subject supports the diagnosis of Diabetes Mellitus.PERFORMED BY:[place] [address] [address] JIM[place], [place] [phone] TRAN METCALF M.D. Performed By: #### G LULS ####Point of Care testing, Glucose [Mass/volume] in Ser um or PlasmaOrdered By: Angie Benavides on 05-05-2025 Glucose [Mass/Vol] 42 mg/dL Off scale low 70-100 [facility] Comment on above: Critical Result Call ed to and read back by: CONSTANTINO SKELTON at: 05/06/2025 00:21:03 by:CGADA recommended reference rangeRandom Glucose Reference Range is dependent on time and content of last meal. Glucose of more than 200 mg/dL in a nonstressed, ambulatory subject supports the diagnosis of Diabetes Mellitus. Result Comment: Crit ical Result Called to and read back by: CONSTANTINO SKELTON at: 05/06/2025 00:21:03 by:CG Random Glucose Reference Range is dependent on time and content of last meal. Glucose of more than 200 mg/dL in a nonstressed, ambulatory subject supports the diagnosis of Diabetes Mellitus. ADA recommended reference range Performed By: #### C BC, CMP ####[address] Hematocrit [Volume Fraction] of Blood by Automated countOrdered By: Angie Benavides on 05-05-2025 Hematocrit (Bld) [Volume fraction] 36.4 % Low 38.8-50.0 [facility] Comment on above: Performed By: #### C BC, CMP ####[address] Hemoglobin [Mass/volume] in BloodOrdered By: Angie Benavides on 05-05-2025 Hemoglobin (Bld) [Mass/Vol] 12.0 g/dL Low 13.0-17.0 [facility] Comment on above: Performed By: #### C BC, CMP ####[address] Leukocytes [#/volume] correc celena for nucleated erythrocytes in Blood by Automated counOrdered By: Angie Benavides on 05-05-2025 WBC corrected for nucl RBC Auto (Bld) [#/Vol] 4.7 10*3/uL 4.1-10.5 [facility] Leukocytes [#/volume] in Blo od by Automated countOrdered By: Angie Benavides on 05-05-2025 WBC (Bld) [#/Vol] 4.7 10*3/uL Normal 4.1-10.5 [facility] Comment on above: Performed By: #### C BC, CMP ####[place] [address] [address] Lymphocytes [#/volume] in Bl ood by Automated countOrdered By: Angie Benavides on 05-05-2025 Lymphocytes (Bld) [#/Vol] 0.8 10*3/uL Low 1.00-4.8 [facility] Comment on above: Performed By: #### C NEREIDA, CMP ####[address] Lymphocytes/100 leukocytes i n Blood by Automated countOrdered By: Angie Benavides on 05-05-2025 Lymphocytes/100 WBC (Bld) 17.1 % Normal . [facility] Comment on above: Performed By: #### C BC, CMP ####[address] MCH [Entitic mass] by Automa celena countOrdered By: Angie Benavides on 05-05-2025 MCH (RBC) [Entitic mass] 28.8 pg Normal 27.5-35.2 [facility] Comment on above: Performed By: #### C BC, CMP ####[place] [id number] [facility] MCHC Auto (RBC) [Mass/Vol]Or dered By: Angie Benavides on 05-05-2025 MCHC (RBC) [Mass/Vol] 33.0 g/dL 32.5-35.6 [facility] MCV [Entitic volume] by Auto mated countOrdered By: Angie Benavides on 05-05-2025 MCV (RBC) [Entitic vol] 87.4 fL Normal 83.5-101 [facility] Comment on above: Performed By: #### C BC, CMP ####[address] Monocyte distribution width [Entitic volume] in Blood by AutomatedOrdered By: Angie Benavides on 05-05-2025 Monocyte distribution width Auto (Bld) [Entitic vol] 17.15 % 0.00-20.00 [facility] Monocytes [#/volume] in Bloo d by Automated countOrdered By: Angie Benavides on 05-05-2025 Monocytes (Bld) [#/Vol] 0.3 10*3/uL Normal 0.0-0.8 [facility] Comment on above: Performed By: #### C BC, CMP ####[address] Monocytes/100 leukocytes in Blood by Automated countOrdered By: Angie Benavides on 05-05-2025 Monocytes/100 WBC (Bld) 6.9 % Normal . [facility] Comment on above: Performed By: #### C BC, CMP ####[address] Neutrophils [#/volume] in Bl ood by Automated countOrdered By: Angie Benavides on 05-05-2025 Neutrophils (Bld) [#/Vol] 3.2 10*3/uL Normal 1.8-7.7 [facility] Comment on above: Performed By: #### C BC, CMP ####[place] [id number] [facility] Neutrophils/100 leukocytes i n Blood by Automated countOrdered By: Angie Benavides on 05-05-2025 Neutrophils/100 WBC (Bld) 68.8 % Normal . [facility] Comment on above: Performed By: #### C BC, CMP ####[address] No Panel InformationOrdered By: Angie Benavides on 05-05-2025 Pharmacy Creatinine Clearance (Chem 26.42 [facility] 26.42 [facility] Nucleated erythrocytes [Pres ence] in Blood by Automated countOrdered By: Angie Benavides on 05-05-2025 Nucleated RBC Auto Ql (Bld) 0.2 /100{WBC} 0-0.5 [facility] Platelet mean volume [Entiti c volume] in Blood by Automated countOrdered By: Angie Benavides on 05-05-2025 Platelet mean volume (Bld) [Entitic vol] 8.6 fL Normal 6.6-10.1 [facility] Comment on above: Performed By: #### C BC, CMP ####[place] [address] [place] [address] [facility] Platelets [#/volume] in Bloo d by Automated countOrdered By: Angie Benavides on 05-05-2025 Platelets (Bld) [#/Vol] 142 10*3/uL Low 150-450 [facility] Comment on above: Performed By: #### C BC, CMP ####[address] [address] [facility] Potassium [Moles/volume] in Serum or PlasmaOrdered By: Angie Benavides on 05-05-2025 Potassium [Moles/Vol] 3.5 mmol/L Normal 3.5-5.1 [facility] Comment on above: Performed By: #### C BC, CMP ####[place] [id number] [facility] Protein [Mass/volume] in Ser um or PlasmaOrdered By: Angie Benavides on 05-05-2025 Protein [Mass/Vol] 8.2 g/dL Normal 6.4-8.9 [facility] Comment on above: Performed By: #### C BC, CMP ####[address] [address] [facility] Serum globulin measurement b y calculation (mass/volume)Ordered By: Angie Benavides on 05-05-2025 Globulin (S) [Mass/Vol] 3.4 g/dL Normal [facility] Comment on above: Performed By: #### C BC, CMP ####[address] [address] [facility] Serum or plasma albumin/glob ulin mass ratioOrdered By: Angie Benavides on 05-05-2025 Albumin/Globulin [Mass ratio] 1.4 {ratio} Normal [facility] Comment on above: Performed By: #### C BC, CMP ####[place] [address] [place] [address] [facility] Serum or plasma anion gap de terminationOrdered By: Angie Jacintoa on 05-05-2025 Anion gap [Moles/Vol] 15.2 mmol/L High 6.0-15.0 [facility] Comment on above: Performed By: #### C BC, CMP ####[address] [address] [facility] Sodium [Moles/volume] in Ser um or PlasmaOrdered By: Angie Benavides on 05-05-2025 Sodium [Moles/Vol] 135 mmol/L Low 136-145 [facility] Comment on above: Performed By: #### C BC, CMP ####[place] [address] [place] [id number] [facility] Thyrotropin [Units/volume] i n Serum or PlasmaOrdered By: Angie Benavides on 05-05-2025 TSH Qn 2.93 m[IU]/L Normal 0.45-5.33 [facility] Comment on above: Result Comment: PERF ORMED BY:[address] [place], [place] [id number] MEDICAL DIRECTORYAMINI METCALF M.D. Performed By: #### T SH3 ####[place] [id number] [facility] Urea nitrogen [Mass/volume] in Serum or PlasmaOrdered By: Angie Benavides on 05-05-2025 Urea nitrogen [Mass/Vol] 18 mg/dL Normal 7-25 [facility] Comment on above: Performed By: #### C BC, CMP ####[place] [address] [place] [id number] [facility] TRANSTHORACIC ECHO (TTE) [address], [address], [place] [address] TRANSTHORACIC ECHOCARDIOGRAM REPORT Patient Name: YOEL WERNER Reading Physician: [id number] Iraida Byrd MD Study Date: 04/15/2025 Ordering Provider: [id number] BRIANNA GOMEZ MRN/PID: [id number] Fellow: Nurse: Date of /Age: 7 1985 / 40 Health Plan Manager: Doretha hogan RDCS, RVT Gender Assigned at Additional Staff: : Height: 182.88 cm Admit Date: Weight: 77.11 kg Admission Status: Outpatient BSA / BMI: 1.99 m2 / 23.06 Department Location: [facility] Heart kg/m2 Cloud Blood Pressure: 174 /80 mmHg Study Type: TRANSTHORACIC ECHO (TTE) LIMITED Diagnosis/ICD: Nonrheumatic mitral (valve) insufficiency-I34.0 Indication: CAD, Diabetes, Dyspnea on Exertion, HTN, Hyperlipidemia, MD and PTCA-11/07/2024 and 02/08/2025, POC-Kidney Transplant, CKD-on Dialysis CPT Codes: Echo Limited-73766 Study Detail: The following Echo studies were performed: 2D, M-Mode, Doppler and color flow. PHYSICIAN INTERPRETATION: Left Ventricle: The left ventricular systolic function is normal with a visually estimated ejection fraction of 55-60%. There is concentric left ventricular hypertrophy. There are no regional wall motion abnormalities. The left ventricular cavity size is normal. Spectral Doppler shows a normal pattern of left ventricular diastolic filling. There is severe concentric left ventricular hypertrophy with abnormal myocardial texture consider cardiac amyloidosis or infiltrative myocardial disorder. Left Atrium: The left atrial size is moderately dilated. Right Ventricle: The right ventricle is normal in size. There is normal right ventricular global systolic function. Right Atrium: The right atrial size is normal. Aortic Valve: The aortic valve is trileaflet. Aortic valve regurgitation was not assessed. Mitral Valve: The mitral valve is normal in structure. There is moderate to severe mitral valve regurgitation. The mitral regurgitant orifice area is 266 mm2. The mitral regurgitant volume is 593.29 ml. Tricuspid Valve: The tricuspid valve is structurally normal. Tricuspid regurgitation was not assessed. No evidence of tricuspid regurgitation. Pulmonic Valve: The pulmonic valve is structurally normal. The pulmonic valve regurgitation was not assessed. Pericardium: No pericardial effusion noted. Aorta: The aortic root is normal. CONCLUSIONS: 1. The left ventricular systolic function is normal with a visually estimated ejection fraction of 55-60%. 2. There is severe concentric left ventricular hypertrophy with abnormal myocardial texture consider cardiac amyloidosis or infiltrative myocardial disorder. 3. There is normal right ventricular global systolic function. 4. The left atrial size is moderately dilated. 5. Moderate to severe mitral valve regurgitation. 6. When compared to previous study LVEF appears better. While the severity of the mitral regurgitation appears to have worsened. QUANTITATIVE DATA SUMMARY: 2D MEASUREMENTS: Normal Ranges: Ao Root d: 3.30 cm (2.0-3.7cm) LAs: 4.84 cm (2.7-4.0cm) RVIDd: 2.87 cm (0.9-3.6cm) IVSd: 2.08 cm (0.6-1.1cm) LVPWd: 1.90 cm (0.6-1.1cm) LVIDd: 5.02 cm (3.9-5.9cm) LVIDs: 3.52 cm LV Mass Index: 252.2 g/m2 LVEDV Index: 92.95 ml/m2 LV % FS 30.0 % LEFT ATRIUM: Normal Ranges: LA Vol A4C: 108.3 ml (22+/-6mL/m2) LA Vol A2C: 102.9 ml LA Vol BP: 111.5 ml LA Vol Index A4C: 54.5ml/m2 LA Vol Index A2C: 51.8 ml/m2 LA Vol Index BP: 56.1 ml/m2 LA Vol A4C: 102.7 ml LA Vol A2C: 96.4 ml LA Vol Index BSA: 50.1 ml/m2 LV SYSTOLIC FUNCTION: Normal Ranges: EF-A4C View: 32 % (>=55%) EF-A2C View: 59 % EF-Biplane: 45 % EF-Visual: 58 % LV EF Reported: 58 % MITRAL INSUFFICIENCY: Normal Ranges: PISA Radius: 1.6 cm MR VTI: 223.14 cm MR Vmax: 650.52 cm/s MR Alias Kofi: 103.2 cm/s MR Volume: 593.29 ml MR Flow Rt: 1729.60 ml/s MR EROA: 266 mm2 dP/dt: 1176 mmHg/s (>1200mmHg/sec) AORTIC VALVE: Normal Ranges: LVOT Diameter: 2.06 cm (1.8-2.4cm) [id number] Iraida Byrd MD Electronically signed on 04/15/2025 at 4:35:44 PM Final CONCLUSIONS: 1. The left ventricular systolic function is normal with a visually estimated ejection fraction of 55-60%. 2. There is severe concentric left ventricular hypertrophy with abnormal myocardial texture consider cardiac amyloidosis or infiltrative myocardial disorder. 3. There is normal right ventricular global systolic function. 4. The left atrial size is moderately dilated. 5. Moderate to severe mitral valve regurgitation. 6. When compared to previous study LVEF appears better. While the severity of the mitral regurgitation appears to have worsened. Normal [facility] Heart TransthoracicOrdere d By: Iraida Byrd on 04-15-2025 LA vol index A/L 56.1 ml/m2 [facility] Work Phone: LV A4C EF 32.0 [facility] Work Phone: LV Biplane EF 45 % [facility] Work Phone: LV EF 58 % [facility] Work Phone: LVIDd 5.02 cm [facility] Work Phone: LVOT diam 2.06 cm [facility] Work Phone: [facility] Work Phone: Heart Transthoracicon CONCLUSIONS: 1. The left ventricular systolic function is normal with a visually estimated ejection fraction of 55-60%. 2. There is severe concentric left ventricular hypertrophy with abnormal myocardial texture consider cardiac amyloidosis or infiltrative myocardial disorder. 3. There is normal right ventricular global systolic function. 4. The left atrial size is moderately dilated. 5. Moderate to severe mitral valve regurgitation. 6. When compared to previous study LVEF appears better. While the severity of the mitral regurgitation appears to have worsened. [employer], [address] [facility], [place] [address] TRANSTHORACIC ECHOCARDIOGRAM REPORT Patient Name: YOEL WERNER Reading Physician: [id number] Iraida Byrd MD Study Date: 04/15/2025 Ordering Provider: [id number] BRIANNA GOMEZ MRN/PID: [id number] Fellow: Nurse: Date of /Age: 7 1985 40 Health Plan Manager: Doretha hogan RDCS, RVT Gender Assigned at M Additional Staff: : Height: 182.88 cm Admit Date: Weight: 77.11 kg Admission Status: Outpatient BSA / BMI: 1.99 m2 / 23.06 Department Location: [facility] Heart kg/m2 [facility] Blood Pressure: 174 /80 mmHg Study Type: TRANSTHORACIC ECHO (TTE) LIMITED Diagnosis/ICD: Nonrheumatic mitral (valve) insufficiency-I34.0 Indication: CAD, Diabetes, Dyspnea on Exertion, HTN, Hyperlipidemia, MD and PTCA-11/07/2024 and 02/08/2025, POC-Kidney Transplant, CKD-on Dialysis CPT Codes: Echo Limited-65802 Study Detail: The following Echo studies were performed: 2D, M-Mode, Doppler and color flow. PHYSICIAN INTERPRETATION: Left Ventricle: The left ventricular systolic function is normal with a visually estimated ejection fraction of 55-60%. There is concentric left ventricular hypertrophy. There are no regional wall motion abnormalities. The left ventricular cavity size is normal. Spectral Doppler shows a normal pattern of left ventricular diastolic filling. There is severe concentric left ventricular hypertrophy with abnormal myocardial texture consider cardiac amyloidosis or infiltrative myocardial disorder. Left Atrium: The left atrial size is moderately dilated. Right Ventricle: The right ventricle is normal in size. There is normal right ventricular global systolic function. Right Atrium: The right atrial size is normal. Aortic Valve: The aortic valve is trileaflet. Aortic valve regurgitation was not assessed. Mitral Valve: The mitral valve is normal in structure. There is moderate to severe mitral valve regurgitation. The mitral regurgitant orifice area is 266 mm2. The mitral regurgitant volume is 593.29 ml. Tricuspid Valve: The tricuspid valve is structurally normal. Tricuspid regurgitation was not assessed. No evidence of tricuspid regurgitation. Pulmonic Valve: The pulmonic valve is structurally normal. The pulmonic valve regurgitation was not assessed. Pericardium: No pericardial effusion noted. Aorta: The aortic root is normal. CONCLUSIONS: 1. The left ventricular systolic function is normal with a visually estimated ejection fraction of 55-60%. 2. There is severe concentric left ventricular hypertrophy with abnormal myocardial texture consider cardiac amyloidosis or infiltrative myocardial disorder. 3. There is normal right ventricular global systolic function. 4. The left atrial size is moderately dilated. 5. Moderate to severe mitral valve regurgitation. 6. When compared to previous study LVEF appears better. While the severity of the mitral regurgitation appears to have worsened. QUANTITATIVE DATA SUMMARY: 2D MEASUREMENTS: Normal Ranges: Ao Root d: 3.30 cm (2.0-3.7cm) LAs: 4.84 cm (2.7-4.0cm) RVIDd: 2.87 cm (0.9-3.6cm) IVSd: 2.08 cm (0.6-1.1cm) LVPWd: 1.90 cm (0.6-1.1cm) LVIDd: 5.02 cm (3.9-5.9cm) LVIDs: 3.52 cm LV Mass Index: 252.2 g/m2 LVEDV Index: 92.95 ml/m2 LV % FS 30.0 % LEFT ATRIUM: Normal Ranges: LA Vol A4C: 108.3 ml (22+/-6mL/m2) LA Vol A2C: 102.9 ml LA Vol BP: 111.5 ml LA Vol Index A4C: 54.5ml/m2 LA Vol Index A2C: 51.8 ml/m2 LA Vol Index BP: 56.1 ml/m2 LA Vol A4C: 102.7 ml LA Vol A2C: 96.4 ml LA Vol Index BSA: 50.1 ml/m2 LV SYSTOLIC FUNCTION: Normal Ranges: EF-A4C View: 32 % (>=55%) EF-A2C View: 59 % EF-Biplane: 45 % EF-Visual: 58 % LV EF Reported: 58 % MITRAL INSUFFICIENCY: Normal Ranges: PISA Radius: 1.6 cm MR VTI: 223.14 cm MR Vmax: 650.52 cm/s MR Alias Kofi: 103.2 cm/s MR Volume: 593.29 ml MR Flow Rt: 1729.60 ml/s MR EROA: 266 mm2 dP/dt: 1176 mmHg/s (>1200mmHg/sec) AORTIC VALVE: Normal Ranges: LVOT Diameter: 2.06 cm (1.8-2.4cm) [id number] Iraida Byrd MD Electronically signed (more content not included)... Iraida Galloway MD - 04/15/2025 [facility] [address] [place] [address], [address], [place] [address] TRANSTHORACIC ECHOCARDIOGRAM REPORT Patient Name: YOEL WERNER Reading Physician: [id number] Iraida Byrd MD Study Date: 04/15/2025 Ordering Provider: [id number] BRIANNA Monet JASON MRN/PID: [id number] Fellow: Nurse: Date of /Age: 7 1985 Health Plan Manager: Doretha hogan RDCS, RVT Gender Assigned at M Additional Staff: : Height: 182.88 cm Admit Date: Weight: 77.11 kg Admission Status: Outpatient BSA / BMI: 1.99 m2 / 23.06 Department Location: [facility] Heart kg/m2 [place] Blood Pressure: 174 /80 mmHg Study Type: TRANSTHORACIC ECHO (TTE) LIMITED Diagnosis/ICD: Nonrheumatic mitral (valve) insufficiency-I34.0 Indication: CAD, Diabetes, Dyspnea on Exertion, HTN, Hyperlipidemia, MD and PTCA-11/07/2024 and 02/08/2025, POC-Kidney Transplant, CKD-on Dialysis CPT Codes: Echo Limited-13415 Study Detail: The following Echo studies were performed: 2D, M-Mode, Doppler and color flow. PHYSICIAN INTERPRETATION: Left Ventricle: The left ventricular systolic function is normal with a visually estimated ejection fraction of 55-60%. There is concentric left ventricular hypertrophy. There are no regional wall motion abnormalities. The left ventricular cavity size is normal. Spectral Doppler shows a normal pattern of left ventricular diastolic filling. There is severe concentric left ventricular hypertrophy with abnormal myocardial texture consider cardiac amyloidosis or infiltrative myocardial disorder. Left Atrium: The left atrial size is moderately dilated. Right Ventricle: The right ventricle is normal in size. There is normal right ventricular global systolic function. Right Atrium: The right atrial size is normal. Aortic Valve: The aortic valve is trileaflet. Aortic valve regurgitation was not assessed. Mitral Valve: The mitral valve is normal in structure. There is moderate to severe mitral valve regurgitation. The mitral regurgitant orifice area is 266 mm2. The mitral regurgitant volume is 593.29 ml. Tricuspid Valve: The tricuspid valve is structurally normal. Tricuspid regurgitation was not assessed. No evidence of tricuspid regurgitation. Pulmonic Valve: The pulmonic valve is structurally normal. The pulmonic valve regurgitation was not assessed. Pericardium: No pericardial effusion noted. Aorta: The aortic root is normal. CONCLUSIONS: 1. The left ventricular systolic function is normal with a visually estimated ejection fraction of 55-60%. 2. There is severe concentric left ventricular hypertrophy with abnormal myocardial texture consider cardiac amyloidosis or infiltrative myocardial disorder. 3. There is normal right ventricular global systolic function. 4. The left atrial size is moderately dilated. 5. Moderate to severe mitral valve regurgitation. 6. When compared to previous study LVEF appears better. While the severity of the mitral regurgitation appears to have worsened. QUANTITATIVE DATA SUMMARY: 2D MEASUREMENTS: Normal Ranges: Ao Root d: 3.30 cm (2.0-3.7cm) LAs: 4.84 cm (2.7-4.0cm) RVIDd: 2.87 cm (0.9-3.6cm) IVSd: 2.08 cm (0.6-1.1cm) LVPWd: 1.90 cm (0.6-1.1cm) LVIDd: 5.02 cm (3.9-5.9cm) LVIDs: 3.52 cm LV Mass Index: 252.2 g/m2 LVEDV Index: 92.95 ml/m2 LV % FS 30.0 % LEFT ATRIUM: Normal Ranges: LA Vol A4C: 108.3 ml (22+/-6mL/m2) LA Vol A2C: 102.9 ml LA Vol BP: 111.5 ml LA Vol Index A4C: 54.5ml/m2 LA Vol Index A2C: 51.8 ml/m2 LA Vol Index BP: 56.1 ml/m2 LA Vol A4C: 102.7 ml LA Vol A2C: 96.4 ml LA Vol Index BSA: 50.1 ml/m2 LV SYSTOLIC FUNCTION: Normal Ranges: EF-A4C View: 32 % (>=55%) EF-A2C View: 59 % EF-Biplane: 45 % EF-Visual: 58 % LV EF Reported: 58 % MITRAL INSUFFICIENCY: Normal Ranges: PISA Radius: 1.6 cm MR VTI: 223.14 cm MR Vmax: 650.52 cm/s MR Alias Kofi: 103.2 cm/s MR Volume: 593.29 ml MR Flow Rt: 1729.60 ml/s MR EROA: 266 mm2 dP/dt: 1176 mmHg/s (>1200mmHg/sec) AORTIC VALVE: Normal Ranges: LVOT Diameter: 2.06 cm (1.8-2.4cm) [id number] Iraida Byrd MD Electronically signed on 04/15/2025 at 4:35:44 PM Final IMPRESSION: CONCLUSIONS: 1. The left ventricular systolic function is normal with a visually estimated ejection fraction of 55-60%. 2. There is severe concentric left ventricular hypertrophy with abnormal myocardial texture consider cardiac amyloidosis or infiltrative myocardial disorder. 3. There is normal right ventricular global systolic function. 4. The left atrial size is moderately dilated. 5. Moderate to severe mitral valve regurgitation. 6. When compared to previous study LVEF appears better. While the severity of the mitral regurgitation appears to have worsened. [facility] Work Phone: Basophils Auto (Bld) [#/Vol] Ordered By: Va Forte on 04-12-2025 Basophils (Bld) [#/Vol] 0.1 10 3/uL 0.0-0.1 [facility] Basophils/100 WBC Auto (Bld) Ordered By: Va Forte on 04-12-2025 Basophils/100 WBC (Bld) 1.3 % 0.2-2.0 [facility] Eosinophils/100 WBC Auto (Bl d)Ordered By: Va Forte on 04-12-2025 Eosinophils/100 WBC (Bld) 4.7 % 0.9-7.0 [facility] Erythrocyte distribution wid th Auto (RBC) [Ratio]Ordered By: Va Forte on 04-12-2025 Erythrocyte distribution width (RBC) [Ratio] 21.6 % High 11.0-15.0 [facility] Globulin Calc (S) [Mass/Vol] Ordered By: Vivek Ignacio on 04-12-2025 Globulin (S) [Mass/Vol] 4.3 g/dL [facility] Glomerular filtration rate ( GFR) estimation in non- AmericanOrdered By: Vivek Ignacio on 04-12-2025 GFR/1.73 sq M.predicted among non-blacks MDRD (S/P/Bld) [Vol rate/Area] 16 mL/min/{1.73_m2} Low >=60 mL/min/1.73m 2 [facility] Hematocrit Auto (Bld) [Volum e fraction]Ordered By: Va Forte on 04-12-2025 Hematocrit (Bld) [Volume fraction] 33.4 % Low 42.0-54.0 [facility] Hemoglobin [Mass/volume] in BloodOrdered By: Va Forte on 04-12-2025 Hemoglobin (Bld) [Mass/Vol] 10.5 g/dL Low 14.0-18.0 [facility] Laboratory - Chemistry and C hemistry - challengeOrdered By: Vivek Ignacio on 04-12-2025 Albumin [Mass/Vol] 3.9 g/dL 3.4-5.0 [facility] ALP [Catalytic activity/Vol] 66 U/L 46-116 [facility] ALT [Catalytic activity/Vol] 14 U/L Low 16-63 [facility] AST [Catalytic activity/Vol] 12 U/L Low 15-37 [facility] Bilirubin [Mass/Vol] 0.7 mg/dL 0.2-1.0 [facility] Calcium [Mass/Vol] 8.7 mg/dL 8.5-10.1 [facility] Chloride [Moles/Vol] 102 mmol/L 98-107 [facility] CO2 [Moles/Vol] 28.9 mmol/L 21.0-32.0 [facility] Creatinine [Mass/Vol] 4.20 mg/dL High 0.70-1.30 [facility] GFR/1.73 sq M.predicted MDRD (S/P/Bld) [Vol rate/Area] 19 mL/min/{1.73_m2} Low >=60 mL/min/1.73m 2 [facility] Glucose [Mass/Vol] 154 mg/dL High 74-106 [facility] Lactate [Moles/Vol] 0.9 mmol/L 0.4-2.0 [facility] Potassium [Moles/Vol] 2.8 mmol/L Critically low 3.5-5.1 [facility] Comment on above: RESULTS CALLED TO SEDRICK FLORENCE RN @BY Leslee Francis at 2211 Protein [Mass/Vol] 8.2 g/dL 6.4-8.2 [facility] Sodium [Moles/Vol] 144 mmol/L 136-145 [facility] Urea nitrogen [Mass/Vol] 20.0 mg/dL High 7.0-18.0 [facility] Urea nitrogen/Creatinine [Mass ratio] 4.8 mg/mg [facility] Laboratory - Hematology and Cell countsOrdered By: Va Forte on 04-12-2025 Immature granulocytes/100 WBC (Bld) 0.2 % 0.0-0.5 [facility] Leukocytes [#/volume] correc celena for nucleated erythrocytes in Blood by Automated counOrdered By: Va Forte on 04-12-2025 WBC corrected for nucl RBC Auto (Bld) [#/Vol] 4.5 10 3/uL 4.0-11.0 [facility] Lymphocytes Auto (Bld) [#/Vo l]Ordered By: Va Forte on 04-12-2025 Lymphocytes (Bld) [#/Vol] 1.0 10 3/uL Low 1.2-3.8 [facility] Lymphocytes/100 WBC Auto (Bl d)Ordered By: Va Forte on 04-12-2025 Lymphocytes/100 WBC (Bld) 21.6 % 20.5-60.0 [facility] MCH Auto (RBC) [Entitic mass ]Ordered By: Va Forte on 04-12-2025 MCH (RBC) [Entitic mass] 27.9 pg 25.9-34.0 [facility] MCHC Auto (RBC) [Mass/Vol]Or dered By: Va Forte on 04-12-2025 MCHC (RBC) [Mass/Vol] 31.4 g/dL 29.9-35.2 [facility] MCV Auto (RBC) [Entitic vol] Ordered By: Va Forte on 04-12-2025 MCV (RBC) [Entitic vol] 88.6 fL 80.0-94.0 [facility] Monocytes Auto (Bld) [#/Vol] Ordered By: Va Reanna on 04-12-2025 Monocytes (Bld) [#/Vol] 0.3 10 3/uL 0.3-0.8 [facility] Monocytes/100 WBC Auto (Bld) Ordered By: Va Reanna on 04-12-2025 Monocytes/100 WBC (Bld) 6.7 % 1.7-12.0 [facility] Neutrophils Auto (Bld) [#/Vo l]Ordered By: Va Mercadonava on 04-12-2025 Neutrophils (Bld) [#/Vol] 3.0 10 3/uL 1.4-6.5 [facility] Neutrophils/100 WBC Auto (Bl d)Ordered By: Va Reanna on 04-12-2025 Neutrophils/100 WBC (Bld) 65.5 % 43.0-75.0 [facility] No Panel InformationOrdered By: Vivek Ignacio on 04-12-2025 C-Peptide 6.2 ng/mL Abnormal 1.1-4.4 [facility] Comment on above: C-Peptide reference interval is for fasting patients.Performed at: [facility] [address] [id number] Director: Pablito Alexander PhD, Phone: [phone] Troponin I High Sensitivity 74.8 pg/mL 4.0-76.1 [facility] Comment on above: CUT-OFF POINTS HAVE [...] IN CONJUNCTIONWITH OTHER DIAGNOSTIC AND CLINICAL INFORMATION. 6.2 ng/mL Abnormal 1.1-4.4 [facility] 74.8 pg/mL 4.0-76.1 [facility] 0.9 mmol/L 0.4-2.0 [facility] 3.9 g/dL 3.4-5.0 [facility] 66 U/L 46-116 [facility] 14 U/L Low 16-63 [facility] 12 U/L Low 15-37 [facility] 4.8 [facility] 20.0 mg/dL High 7.0-18.0 [facility] 8.7 mg/dL 8.5-10.1 [facility] 102 mmol/L 98-107 [facility] 28.9 mmol/L 21.0-32.0 [facility] 4.20 mg/dL High 0.70-1.30 [facility] 19 Low >=60 mL/min/1.73m 2 [facility] 154 mg/dL High 74-106 [facility] 2.8 mmol/L Critically low 3.5-5.1 [facility] 144 mmol/L 136-145 [facility] 0.7 mg/dL 0.2-1.0 [facility] 8.2 g/dL 6.4-8.2 [facility] No Panel InformationOrdered By: Va Forte on 04-12-2025 Eosinophils # (Auto) 0.2 10 3/uL 0.0-0.7 [facility] Immature Granulocyte # (Auto) 0.01 10 3/uL 0.00-0.03 [facility] 0.2 10 3/uL 0.0-0.7 [facility] 0.01 10 3/uL 0.00-0.03 [facility] 0.2 % 0.0-0.5 [facility] Platelet mean volume Auto (B ld) [Entitic vol]Ordered By: Va Forte on 04-12-2025 Platelet mean volume (Bld) [Entitic vol] 10.1 fL 9.5-13.5 [facility] Platelets Auto (Bld) [#/Vol] Ordered By: Va Forte on 04-12-2025 Platelets (Bld) [#/Vol] 125 10 3/uL Low 150-450 [facility] RBC Auto (Bld) [#/Vol]Ordere d By: Va Forte on 04-12-2025 RBC (Bld) [#/Vol] 3.77 10 6/uL Low 4.70-6.10 [facility] Serum or plasma albumin/glob ulin mass ratioOrdered By: Vivek Ignacio on 04-12-2025 Albumin/Globulin [Mass ratio] 0.9 {ratio} [facility] Serum or plasma anion gap de terminationOrdered By: Vivek Ignacio on 04-12-2025 Anion gap [Moles/Vol] 15.9 mmol/L [facility] US AV Fistulaon 04-01-2025 US AV Fistula Normal [facility] Basophils Auto (Bld) [#/Vol] Ordered By: Denilson Gomez on 01-19-2025 Basophils (Bld) [#/Vol] Automated basophil count 0.0-0.2 [facility] Basophils [#/volume] in Bloo d by Automated countOrdered By: Denilson Gomez on 01-19-2025 Basophils (Bld) [#/Vol] 0.1 10*3/uL Normal 0.0-0.2 [facility] Comment on above: Result Comment: PERF ORMED BY:[place] [id number] [place] [id number] MEDICAL DIRECTORYAMINI METCALF M.D. Performed By: #### C BC, PP, LYTES, BUN, CREAT, LIPID ####[facility] [id number] [place] [id number] [facility] Basophils/100 WBC Auto (Bld) Ordered By: Denilson Gomez on 01-19-2025 Basophils/100 WBC (Bld) Automated basophil % . [facility] Basophils/100 leukocytes in Blood by Automated countOrdered By: Denilson Gomez on 01-19-2025 Basophils/100 WBC (Bld) 1.6 % Normal . [facility] Comment on above: Performed By: #### C BC, PP, LYTES, BUN, CREAT, LIPID ####[place] [id number] [place] [address] [facility] Carbon dioxide, total [Moles /volume] in Serum or PlasmaOrdered By: Denilson Gomez on 01-19-2025 CO2 [Moles/Vol] Carbon dioxide, tota l [Moles/volume] in Serum or Plasma High 21.0-31.0 [facility] CO2 [Moles/Vol] 32.2 mmol/L High 21.0-31.0 [facility] Comment on above: Performed By: #### C BC, PP, LYTES, BUN, CREAT, LIPID ####[facility] [place] [id number] [facility] Chloride [Moles/volume] in S gretta or PlasmaOrdered By: Denilson Gomez on 01-19-2025 Chloride [Moles/Vol] Chloride [Moles/vol ume] in Serum or Plasma Low 98-107 [facility] Chloride [Moles/Vol] 95 mmol/L Low 98-107 [facility] Comment on above: Performed By: #### C BC, PP, LYTES, BUN, CREAT, LIPID ####[place] [id number] [place] [id number] [facility] Cholesterol [Mass/volume] in Serum or PlasmaOrdered By: Denilson Gomez on 01-19-2025 Cholesterol [Mass/Vol] Cholesterol [Mass/volume] in Serum or Plasma Low 140-200 [facility] Comment on above: Chol less than 200 m g/dl low riskChol 201-239 mg/dl borderline riskChol 240 mg/dl and greater high risk Cholesterol [Mass/Vol] 99 mg/dL Low 140-200 [facility] Comment on above: Chol less than 200 m g/dl low riskChol 201-239 mg/dl borderline riskChol 240 mg/dl and greater high risk Result Comment: Chol less than 200 mg/dl low risk Chol 201-239 mg/dl borderline risk Chol 240 mg/dl and greater high risk Performed By: #### C BC, PP, LYTES, BUN, CREAT, LIPID ####[facility] [place] [id number] [place] Cholesterol in HDL [Mass/vol ume] in Serum or PlasmaOrdered By: Denilson Gomez on 01-19-2025 Cholesterol in HDL [Mass/Vol] Serum or plasma high density lipoprotein (HDL) cholesterol measurement 23-92 [facility] Comment on above: HDL CHOL ATP-III CLA SSIFICATION Cardiovascular RiskHDL > or equal to 60 mg/dL LOWHDL < 40 mg/dL HIGH Cholesterol in HDL [Mass/Vol] 31 mg/dL Normal [facility] Comment on above: HDL CHOL ATP-III CLA SSIFICATION Cardiovascular RiskHDL > or equal to 60 mg/dL LOWHDL < 40 mg/dL HIGH Result Comment: HDL CHOL ATP-III CLASSIFICATION Cardiovascular Risk HDL > or equal to 60 mg/dL LOW HDL < 40 mg/dL HIGH Performed By: #### C BC, PP, LYTES, BUN, CREAT, LIPID ####[facility] [id number] [place] [address] [facility] Cholesterol in LDL Calc [Mas s/Vol]Ordered By: Denilson Gomez on 01-19-2025 Cholesterol in LDL [Mass/Vol] Cholesterol in LDL [Mass/volume] in Serum or Plasma by calculation [facility] Comment on above: LDL ATP III CLASSIFI CATIONLDL less than 100 mg/dL OptimalLDL 100-129 mg/dL Near or above optimalLDL 130-159 mg/dL Borderline highLDL 160-189 mg/dL HighLDL greater than 189 mg/dL Very high Cholesterol in LDL [Mass/Vol] 60 mg/dL 0 [facility] Comment on above: LDL ATP III CLASSIFI CATIONLDL less than 100 mg/dL OptimalLDL 100-129 mg/dL Near or above optimalLDL 130-159 mg/dL Borderline highLDL 160-189 mg/dL HighLDL greater than 189 mg/dL Very high Cholesterol in VLDL Calc [Ma ss/Vol]Ordered By: Denilson Gomez on 01-19-2025 Cholesterol in VLDL [Mass/Vol] Cholesterol in VLDL [Mass/volume] in Serum or Plasma by calculation [facility] Cholesterol in VLDL [Mass/Vol] 8 mg/dL [facility] Coagulation Profileon 2024 aPTT Coag (Bld) [Time] 34.6 s Normal 25.1-36.5 [facility] Comment on above: Result Comment: A he matocrit value greater than 55% may lead to inaccurate results in coagulation testing. Patients having hematocrit values >55% require a special collection tube for coagulation studies. Please contact the laboratory at [phone] for redraw instructions.PERFORMED BY:[address] [place], [place] [id number] MEDICAL DIRECTORYAMINI METCALF M.D. Performed By: #### C BC, PP, LYTES, BUN, CREAT, LIPID ####[address] Complete Blood Count Auto Di ffon 01-19-2025 Mean Corpuscular HGB Conc 33.6 g/dL Normal 32.5-35.6 [facility] Comment on above: Performed By: #### C BC, PP, LYTES, BUN, CREAT, LIPID ####[address] NRBC% 0.0 /100{WBC} Normal 0-0.5 [facility] Comment on above: Performed By: #### C BC, PP, LYTES, BUN, CREAT, LIPID ####[address] Creatinineon 01-19-2025 Estimated GFR 12.503 mL/Min Normal [facility] Comment on above: Performed By: #### C BC, PP, LYTES, BUN, CREAT, LIPID ####[address] Creatinine [Mass/volume] in Serum or PlasmaOrdered By: Denilson Gomez on 01-19-2025 Creatinine [Mass/Vol] Creatinine [Mass/v olume] in Serum or Plasma High 0.70-1.30 [facility] Creatinine [Mass/Vol] 5.57 mg/dL High 0.70-1.30 [facility] Comment on above: Performed By: #### C BC, PP, LYTES, BUN, CREAT, LIPID ####[address] ECG 12 lead ECGon 01-19-2025 ECG 12 lead ECG Normal [facility] Eosinophils Auto (Bld) [#/Vo l]Ordered By: Denilson Gomez on 01-19-2025 Eosinophils (Bld) [#/Vol] Automated eosinophil count 0.0-0.45 [facility] Eosinophils [#/volume] in Bl ood by Automated countOrdered By: Denilson Gomez on 01-19-2025 Eosinophils (Bld) [#/Vol] 0.3 10*3/uL Normal 0.0-0.45 [facility] Comment on above: Performed By: #### C BC, PP, LYTES, BUN, CREAT, LIPID ####[address] Eosinophils/100 WBC Auto (Bl d)Ordered By: Denilson Gomez on 01-19-2025 Eosinophils/100 WBC (Bld) Automated eosinophil % . [facility] Eosinophils/100 leukocytes i n Blood by Automated countOrdered By: Denilson Gomez on 01-19-2025 Eosinophils/100 WBC (Bld) 4.6 % Normal . [facility] Comment on above: Performed By: #### C BC, PP, LYTES, BUN, CREAT, LIPID ####[address] Erythrocyte distribution wid th Auto (RBC) [Ratio]Ordered By: Denilson Gomez on 01-19-2025 Erythrocyte distribution width (RBC) [Ratio] Erythrocyte distribution width [Ratio] by Automated count 12.0-14.8 [facility] Erythrocyte distribution wid th [Ratio] by Automated countOrdered By: Denilson Gomez on 01-19-2025 Erythrocyte distribution width (RBC) [Ratio] 14.1 % Normal 12.0-14.8 [facility] Comment on above: Performed By: #### C BC, PP, LYTES, BUN, CREAT, LIPID ####[address] Erythrocytes [#/volume] in B lood by Automated countOrdered By: Denilson Gomez on 01-19-2025 RBC (Bld) [#/Vol] 4.22 10*6/uL Normal 3.90-5.60 [facility] Comment on above: Performed By: #### C BC, PP, LYTES, BUN, CREAT, LIPID ####[facility] [id number] [place] [id number] [facility] Hematocrit Auto (Bld) [Volum e fraction]Ordered By: Denilson Gomez on 01-19-2025 Hematocrit (Bld) [Volume fraction] Hematocrit [Volume Fraction] of Blood by Automated count Low 38.8-50.0 [facility] Hematocrit [Volume Fraction] of Blood by Automated countOrdered By: Denilson Gomez on 01-19-2025 Hematocrit (Bld) [Volume fraction] 32.6 % Low 38.8-50.0 [facility] Comment on above: Performed By: #### C BC, PP, LYTES, BUN, CREAT, LIPID ####[place] [id number] Hemoglobin [Mass/volume] in BloodOrdered By: Denilson Gomez on 01-19-2025 Hemoglobin (Bld) [Mass/Vol] Hemoglobin [Mass/volume] in Blood Low 13.0-17.0 [facility] Hemoglobin (Bld) [Mass/Vol] 10.9 g/dL Low 13.0-17.0 [facility] Comment on above: Performed By: #### C BC, PP, LYTES, BUN, CREAT, LIPID ####[place] [id number] INR in Platelet poor plasma by Coagulation assayOrdered By: Denilson Gomez on 01-19-2025 INR Coag (PPP) [Relative time] INR in Platelet poor plasma by Coagulation assay [facility] Comment on above: INR Therapeutic Rang [...] Coag (PPP) [Relative time] 1.2 {INR} Normal [facility] Comment on above: INR Therapeutic Rang [...] - 4.5 Performed By: #### C BC, PP, LYTES, BUN, CREAT, LIPID ####[facility] [id number] Leukocytes [#/volume] correc celena for nucleated erythrocytes in Blood by Automated counOrdered By: Denilson Gomez on 01-19-2025 WBC corrected for nucl RBC Auto (Bld) [#/Vol] Leukocytes [#/volume] corrected for nucleated erythrocytes in Blood by Automated coun 4.1-10.5 [facility] WBC corrected for nucl RBC Auto (Bld) [#/Vol] 5.4 10*3/uL 4.1-10.5 [facility] Leukocytes [#/volume] in Blo od by Automated countOrdered By: Denilson Gomez on 01-19-2025 WBC (Bld) [#/Vol] 5.4 10*3/uL Normal 4.1-10.5 [facility] Comment on above: Performed By: #### C BC, PP, LYTES, BUN, CREAT, LIPID ####[facility] [place] [id number] [facility] Lipid Panelon 01-19-2025 LDL Cholesterol,Calculated 60 mg/dL Normal 0-100 [facility] Comment on above: Result Comment: LDL ATP III CLASSIFICATION LDL less than 100 mg/dL Optimal LDL 100-129 mg/dL Near or above optimal LDL 130-159 mg/dL Borderline high LDL 160-189 mg/dL High LDL greater than 189 mg/dL Very high Performed By: #### C BC, PP, LYTES, BUN, CREAT, LIPID ####[place] [id number] [address] Triglyceride w/Reflex 41 mg/dL Normal 0-149 [facility] Comment on above: Result Comment: TRIG ATP III CLASSIFICATION TRIG less than 150 mg/dL Normal TRIG 150-199 mg/dL Borderline high TRIG 200-500 mg/dL High TRIG greater than 500 mg/dL Very high Standard traceable to the Center for Disease Conrtrol and Prevention (CDC) test method. Performed By: #### C BC, PP, LYTES, BUN, CREAT, LIPID ####[address] VLDL CHOLESTEROL 8 mg/dL Normal [facility] Comment on above: Performed By: #### C BC, PP, LYTES, BUN, CREAT, LIPID ####[place] [id number] [address] Lymphocytes Auto (Bld) [#/Vo l]Ordered By: Denilson Gomez on 01-19-2025 Lymphocytes (Bld) [#/Vol] Lymphocytes [#/volume] in Blood by Automated count Low 1.00-4.8 [facility] Lymphocytes [#/volume] in Bl ood by Automated countOrdered By: Denilson Gomez on 01-19-2025 Lymphocytes (Bld) [#/Vol] 0.9 10*3/uL Low 1.00-4.8 [facility] Comment on above: Performed By: #### C BC, PP, LYTES, BUN, CREAT, LIPID ####[address] Lymphocytes/100 WBC Auto (Bl d)Ordered By: Denilson Gomez on 01-19-2025 Lymphocytes/100 WBC (Bld) Lymphocytes/100 leukocytes in Blood by Automated count . [facility] Lymphocytes/100 leukocytes i n Blood by Automated countOrdered By: Denilson Gomez on 01-19-2025 Lymphocytes/100 WBC (Bld) 16.2 % Normal . [facility] Comment on above: Performed By: #### C BC, PP, LYTES, BUN, CREAT, LIPID ####[address] MCH Auto (RBC) [Entitic mass ]Ordered By: Denilson Gomez on 01-19-2025 MCH (RBC) [Entitic mass] MCH [Entitic mass] by Automated count Low 27.5-35.2 [facility] MCH [Entitic mass] by Automa celena countOrdered By: Denilson Gomez on 01-19-2025 MCH (RBC) [Entitic mass] 26.0 pg Low 27.5-35.2 [facility] Comment on above: Performed By: #### C BC, PP, LYTES, BUN, CREAT, LIPID ####[facility] [id number] [place] [address] [facility] MCHC Auto (RBC) [Mass/Vol]Or dered By: Denilson Gomez on 01-19-2025 MCHC (RBC) [Mass/Vol] MCHC [Mass/volume] by Automated count 32.5-35.6 [facility] MCHC (RBC) [Mass/Vol] 33.6 g/dL 32.5-35.6 [facility] MCV Auto (RBC) [Entitic vol] Ordered By: Denilson Gomez on 01-19-2025 MCV (RBC) [Entitic vol] MCV [Entitic vol ume] by Automated count Low 83.5-101 [facility] MCV [Entitic volume] by Auto mated countOrdered By: Denilson Gomez on 01-19-2025 MCV (RBC) [Entitic vol] 77.4 fL Low 83.5-101 [facility] Comment on above: Performed By: #### C BC, PP, LYTES, BUN, CREAT, LIPID ####[facility] [id number] [place] [address] [facility] Monocytes Auto (Bld) [#/Vol] Ordered By: Denilson Gomez on 01-19-2025 Monocytes (Bld) [#/Vol] Automated blood monocyte count 0.0-0.8 [facility] Monocytes [#/volume] in Bloo d by Automated countOrdered By: Denilson Gomez on 01-19-2025 Monocytes (Bld) [#/Vol] 0.5 10*3/uL Normal 0.0-0.8 [facility] Comment on above: Performed By: #### C BC, PP, LYTES, BUN, CREAT, LIPID ####[place] [id number] [address] Monocytes/100 WBC Auto (Bld) Ordered By: Denilson Gomez on 01-19-2025 Monocytes/100 WBC (Bld) Automated monocyte % . [facility] Monocytes/100 leukocytes in Blood by Automated countOrdered By: Denilson Gomez on 01-19-2025 Monocytes/100 WBC (Bld) 9.3 % Normal . [facility] Comment on above: Performed By: #### C BC, PP, LYTES, BUN, CREAT, LIPID ####[address] Neutrophils Auto (Bld) [#/Vo l]Ordered By: Denilson Gomez on 01-19-2025 Neutrophils (Bld) [#/Vol] Neutrophils [#/volume] in Blood by Automated count 1.8-7.7 [facility] Neutrophils [#/volume] in Bl ood by Automated countOrdered By: Denilson Gomez on 01-19-2025 Neutrophils (Bld) [#/Vol] 3.7 10*3/uL Normal 1.8-7.7 [facility] Comment on above: Performed By: #### C BC, PP, LYTES, BUN, CREAT, LIPID ####[address] Neutrophils/100 WBC Auto (Bl d)Ordered By: Denilson Gomez on 01-19-2025 Neutrophils/100 WBC (Bld) Automated neutrophil % . [facility] Neutrophils/100 leukocytes i n Blood by Automated countOrdered By: Denilson Gomez on 01-19-2025 Neutrophils/100 WBC (Bld) 68.3 % Normal . [facility] Comment on above: Performed By: #### C BC, PP, LYTES, BUN, CREAT, LIPID ####[facility] No Panel InformationOrdered By: Denilson Gomez on 01-19-2025 Estimated GFR (CKD-EPI) 12.503 mL/Min [facility] Creatinine Clearance (Chem N/A [facility] Nucleated erythrocytes [Pres ence] in Blood by Automated countOrdered By: Denilson Gomez on 01-19-2025 Nucleated RBC Auto Ql (Bld) Nucleated erythrocytes [Presence] in Blood by Automated count 0-0.5 [facility] Nucleated RBC Auto Ql (Bld) 0.0 /100{WBC} 0-0.5 [facility] Platelet mean volume Auto (B ld) [Entitic vol]Ordered By: Denilson Gomez on 01-19-2025 Platelet mean volume (Bld) [Entitic vol] Platelet mean volume [Entitic volume] in Blood by Automated count 6.6-10.1 [facility] Platelet mean volume [Entiti c volume] in Blood by Automated countOrdered By: Denilson Gomez on 01-19-2025 Platelet mean volume (Bld) [Entitic vol] 8.1 fL Normal 6.6-10.1 [facility] Comment on above: Performed By: #### C BC, PP, LYTES, BUN, CREAT, LIPID ####[facility] [id number] Platelets Auto (Bld) [#/Vol] Ordered By: Denilson Gomez on 01-19-2025 Platelets (Bld) [#/Vol] Platelets [#/vol ume] in Blood by Automated count Low 150-450 [facility] Platelets [#/volume] in Bloo d by Automated countOrdered By: Denilson Gomez on 01-19-2025 Platelets (Bld) [#/Vol] 104 10*3/uL Low 150-450 [facility] Comment on above: Performed By: #### C BC, PP, LYTES, BUN, CREAT, LIPID ####[facility] [id number] [place] [id number] [facility] Potassium [Moles/volume] in Serum or PlasmaOrdered By: Denilson Gomez on 01-19-2025 Potassium [Moles/Vol] Potassium [Moles/v olume] in Serum or Plasma 3.5-5.1 [facility] Potassium [Moles/Vol] 3.5 mmol/L Normal 3.5-5.1 [facility] Comment on above: Performed By: #### C BC, PP, LYTES, BUN, CREAT, LIPID ####[facility] [place] [id number] [facility] Prothrombin time (PT)Ordered By: Denilson Gomez on 01-19-2025 PT Coag (PPP) [Time] Prothrombin time (PT) High 9.0- 12.9 [facility] Comment on above: A hematocrit value g reater than 55% may lead to inaccurate results in coagulation testing. Patients having hematocrit values >55% require a special collection tube for coagulation studies. Please contact the laboratory at [phone] for redraw instructions. PT Coag (PPP) [Time] 13.3 s High 9.0-12.9 [facility] Comment on above: A hematocrit value g reater than 55% may lead to inaccurate results in coagulation testing. Patients having hematocrit values >55% require a special collection tube for coagulation studies. Please contact the laboratory at [phone] for redraw instructions. Result Comment: A he matocrit value greater than 55% may lead to inaccurate results in coagulation testing. Patients having hematocrit values >55% require a special collection tube for coagulation studies. Please contact the laboratory at [phone] for redraw instructions. Performed By: #### C BC, PP, LYTES, BUN, CREAT, LIPID ####[facility] [place] [address] [facility] RBC Auto (Bld) [#/Vol]Ordere d By: Denilson Gomez on 01-19-2025 RBC (Bld) [#/Vol] Erythrocytes [#/volu me] in Blood by Automated count 3.90-5.60 [facility] Serum or plasma anion gap de terminationOrdered By: Denilson Gomez on 01-19-2025 Anion gap [Moles/Vol] Serum or plasma an ion gap determination 6.0-15.0 [facility] Anion gap [Moles/Vol] 12.3 mmol/L Normal 6.0-15.0 [facility] Comment on above: Performed By: #### C BC, PP, LYTES, BUN, CREAT, LIPID ####[facility] [place] [address] [facility] Serum or plasma total choles terol/high density lipoprotein (HDL) cholesterol mass ratOrdered By: Denilson Gomez on 01-19-2025 Cholesterol.total/Rosalind sterol in HDL [Mass ratio] Serum or plasma total cholesterol/high density lipoprotein (HDL) cholesterol mass rat <5.0 [facility] Cholesterol.total/Rosalind sterol in HDL [Mass ratio] 3.2 {ratio} Normal <5.0 [facility] Comment on above: Result Comment: PERF ORMED BY:[address] [place] [phone] MEDICAL DIRECTORYAMINI METCALF M.D. Performed By: #### C BC, PP, LYTES, BUN, CREAT, LIPID ####[address] [address] [facility] Sodium [Moles/volume] in Ser um or PlasmaOrdered By: Denilson Gomez on 01-19-2025 Sodium [Moles/Vol] Sodium [Moles/volume ] in Serum or Plasma 136-145 [facility] Sodium [Moles/Vol] 136 mmol/L Normal 136-145 [facility] Comment on above: Performed By: #### C BC, PP, LYTES, BUN, CREAT, LIPID ####[address] [address] [facility] Triglyceride [Mass/volume] i n Serum or PlasmaOrdered By: Denilson Gomez on 01-19-2025 Triglyceride [Mass/Vol] Triglyceride [Mass/volume] in Serum or Plasma 0-149 [facility] Comment on above: TRIG ATP III CLASSIF ICATIONTRIG less than 150 mg/dL NormalTRIG 150-199 mg/dL Borderline highTRIG 200-500 mg/dL High TRIG greater than 500 mg/dL Very highStandard traceable to the Center for Disease Conrtrol and Prevention (CDC) test method. Triglyceride [Mass/Vol] 41 mg/dL 0-149 [facility] Comment on above: TRIG ATP III [...] [Mass/volume] in Serum or Plasma High 7-25 [facility] Urea nitrogen [Mass/Vol] 30 mg/dL High 7-25 [facility] Comment on above: Performed By: #### C BC, PP, LYTES, BUN, CREAT, LIPID ####[facility] [id number] [place] [address] [facility] WBC Auto (Bld) [#/Vol]Ordere d By: Denilson Gomez on 01-19-2025 WBC (Bld) [#/Vol] Leukocytes [#/volume ] in Blood by Automated count 4.1-10.5 [facility] aPTT in Platelet poor plasma by Coagulation assayOrdered By: Denilson Gomez on 01-19-2025 aPTT Coag (PPP) [Time] Activated partial thromboplastin time (aPTT) in platelet poor plasma by coagulation a 25.1-36.5 [facility] Comment on above: A hematocrit value g reater than 55% may lead to inaccurate results in coagulation testing. Patients having hematocrit values >55% require a special collection tube for coagulation studies. Please contact the laboratory at [phone] for redraw instructions. aPTT Coag (PPP) [Time] 34.6 s 25.1-36.5 [facility] Comment on above: A hematocrit value g reater than 55% may lead to inaccurate results in coagulation testing. Patients having hematocrit values >55% require a special collection tube for coagulation studies. Please contact the laboratory at [phone] for redraw instructions. BASIC METABOLIC PANELon 05-0 Anion gap [Moles/Vol] 14 mmol/L Normal 7-20 [facility] Comment on above: Performed By: #### L [id number] #### [facility] ([facility]) [address] [place] [address] Calcium [Mass/Vol] 8.9 mg/dL Normal 8.6-10.3 [facility] Comment on above: Performed By: #### L [id number] #### [facility] [address] [place] [address] Chloride [Moles/Vol] 95 mmol/L Low 98-107 [facility] Comment on above: Performed By: #### L [id number] #### [facility] ([facility]) [address] [place] [address] CO2 [Moles/Vol] 29 mmol/L Normal 21-31 [facility] Comment on above: Performed By: #### L [id number] #### [facility] ([facility]) [address] [place] [address] Creatinine [Mass/Vol] 6.54 mg/dL High 0.70-1.30 [facility] Comment on above: Performed By: #### L [id number] #### [facility] ([facility]) [address] [place] [address] GLOMERULAR FILTRATION RATE ML/MIN/1.73 SQ M.PREDICTED 10.3 mL/min/1.73m*2 Low >60.0 [facility] Comment on above: Result Comment: The [facility]???s estimated glomerular filtration rate (eGFR) will no [...] individuals. Performed By: #### L [id number] #### [facility] [address] [place] [address] Glucose [Mass/Vol] 353 mg/dL High 70-100 [facility] Comment on above: Performed By: #### L [id number] #### [facility] [address] [place] [address] Potassium [Moles/Vol] 4.1 mmol/L Normal 3.5-5.1 [facility] Comment on above: Performed By: #### L [id number] #### [facility] [address] [place] [address] Sodium [Moles/Vol] 134 mmol/L Low 136-145 [facility] Comment on above: Performed By: #### L [id number] #### [facility] [address] [place] [address] Urea nitrogen [Mass/Vol] 37 mg/dL High 7-25 [facility] Comment on above: Performed By: #### L [id number] #### [facility] ([facility]) [address] [place] [address] UREA NITROGEN/CREATININE (MASS RATIO) IN SER/PLAS 5.7 Normal [facility] Comment on above: Performed By: #### L [id number] #### [facility] ([facility]) [address] [place] [address] CBCon 12-22-2024 Erythrocyte distribution width (RBC) [Ratio] 14.1 % Normal 11.5-15.0 [facility] Comment on above: Performed By: #### L [id number] #### [facility] [address] [place] [address] ERYTHROCYTE MEAN CORPUSCULAR HEMOGLOBIN CONCENTRATION (G/DL) BY AUTOMATED 31.5 g/dL Low 32.0-35.0 [facility] Comment on above: Performed By: #### L [id number] #### [facility] [address] [place] [address] Hematocrit (Bld) [Volume fraction] 37.2 % Low 39.0-50.0 [facility] Comment on above: Performed By: #### L [id number] #### [facility] [address] [place] [address] Hemoglobin (Bld) [Mass/Vol] 11.7 g/dL Low 13.0-17.0 [facility] Comment on above: Performed By: #### L [id number] #### [facility] ([facility]) [address] [place] [address] MCH (RBC) [Entitic mass] 26.5 pg Low 27.0-33.0 [facility] Comment on above: Performed By: #### L [id number] #### [facility] ([facility]) [address] [place] [address] MCV (RBC) [Entitic vol] 84.2 fL Normal 82.0-98.0 [facility] Comment on above: Performed By: #### L [id number] #### [facility] ([facility]) [address] [place] [address] PLATELETS (10*3/UL) IN BLOOD AUTOMATED COUNT 114 10*3/uL Low 150-400 [facility] Comment on above: Performed By: #### L [id number] #### [facility] ([facility]) [address] [place] [address] RBC (Bld) [#/Vol] 4.42 10*6/uL Normal 4.20-5.70 [facility] Comment on above: Performed By: #### L [id number] #### [facility] ([facility]) [address] [place] [address] WBC (Bld) [#/Vol] 4.90 10*3/uL Normal 4.00-10.60 [facility] Comment on above: Performed By: #### L [id number] #### [facility] ([facility]) [address] [place] [address] HPon 12-22-2024 HP History Of Present Illness [...] medical history of Acute hypoxic respiratory failure ([facility]) (06/18/2024), Acute metabolic encephalopathy (06/18/2024), Anasarca (06/18/2024), Anemia in chronic kidney disease (06/18/2024), Atherosclerotic heart disease of [place] coronary artery without angina pectoris, AV fistula stenosis (06/18/2024), Chest pain (06/18/2024), CHF (congestive heart failure) ([facility]) (08/20/2023), Chronic bronchitis, mucopurulent ([facility]) (06/18/2024), Cigarette nicotine dependence without complication (06/18/2024), COVID-19, Current every day smoker (08/20/2023), Diabetes mellitus ([facility]) (08/20/2023), Diabetic retinopathy ([facility]), Erectile dysfunction due to arterial insufficiency (06/18/2024), ESRD (end stage renal disease) on dialysis ([facility])(03/01/2023), EBENEZER (generalized anxiety disorder) (06/18/2024), GERD (gastroesophageal reflux disease), HCAP (healthcare-associated pneumonia) (06/18/2024), History of MD (myocardial infarction) (08/20/2023), Hyperkalemia (06/18/2024), Hyperlipidemia (08/20/2023), Hypertensive emergency (03/17/2024), Hypoxemia (06/18/2024), Ischemic cardiomyopathy (03/17/2024), MGUS (monoclonal gammopathy of unknown significance) (06/18/2024), Mild episode of recurrent major depressive disorder (06/18/2024), Monoclonal (M) protein disease, multiple 'M' protein (06/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 [id number]=0ovwet; 170-189=3units; 190-209=4units; 210-229=6units; 230-249=8units; 250-269=9units; 270-289=10units; 290-300=12units; >300=14units & notify provider 12/21/2024 isosorbide mononitrate ER (Imdur) 60 mg 24 hr tablet Take 60 mg by mouth two times daily. 12/22/2024 lisinopril 20 mg tablet 20 mg in the morning. 12/22/2024 loratadine (Claritin) 10 mg tablet Take 10 mg (more content not included)... Normal [facility] NURSNOTEon 12-22-2024 NURSNOTE Patient refusing to wait any longer for heart cath. States he is hungry and annoyed and he wants to have his cath at [facility] with his regular doctor. 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 Patient leaving now. Normal [facility] Alanine aminotransferase [En zymatic activity/volume] in Serum or PlasmaOrdered By: Mickey Gr on 12-17-2024 ALT [Catalytic activity/Vol] Alanine aminotransferase [Enzymatic activity/volume] in Serum or Plasma [facility] Albumin [Mass/volume] in Ser um or Plasma by Bromocresol green (BCG) dye binding methoOrdered By: Mickey Gr on 12-17-2024 Albumin BCG dye [Mass/Vol] Albumin [Mass/volume] in Serum or Plasma by Bromocresol green (BCG) dye binding metho 3.5-5.7 [facility] Alkaline phosphatase [Enzyma tic activity/volume] in Serum or PlasmaOrdered By: Mickey Gr on 12-17-2024 ALP [Catalytic activity/Vol] Alkaline phosphatase [Enzymatic activity/volume] in Serum or Plasma 34-104 [facility] Aspartate aminotransferase [ Enzymatic activity/volume] in Serum or PlasmaOrdered By: Mickey Gr on 12-17-2024 AST [Catalytic activity/Vol] Aspartate aminotransferase [Enzymatic activity/volume] in Serum or Plasma 13-39 [facility] Basophils Auto (Bld) [#/Vol] Ordered By: Mickey Gr on 12-17-2024 Basophils (Bld) [#/Vol] Automated basophil count 0.0-0.2 [facility] Basophils/100 WBC Auto (Bld) Ordered By: Mickey Gr on 12-17-2024 Basophils/100 WBC (Bld) Automated basophil % . [facility] Bilirubin.total [Mass/volume ] in Serum or PlasmaOrdered By: Mickey Gr on 12-17-2024 Bilirubin [Mass/Vol] Bilirubin.total [Mass/volume] in Serum or Plasma 0.3-1.0 [facility] Calcium [Mass/volume] in Ser um or PlasmaOrdered By: Mickey Gr on 12-17-2024 Calcium [Mass/Vol] Calcium [Mass/volume ] in Serum or Plasma 8.6-10.3 [facility] Carbon dioxide, total [Moles /volume] in Serum or PlasmaOrdered By: Mickey Gr on 12-17-2024 CO2 [Moles/Vol] Carbon dioxide, tota l [Moles/volume] in Serum or Plasma 21.0-31.0 [facility] Chloride [Moles/volume] in S gretta or PlasmaOrdered By: Mickey Gr on 12-17-2024 Chloride [Moles/Vol] Chloride [Moles/vol ume] in Serum or Plasma Low 98-107 [facility] Complete Blood Count Auto Di ffon 12-17-2024 Basophils (Bld) [#/Vol] 0.2 10*3/uL Normal 0.0-0.2 [facility] Comment on above: Result Comment: PERF ORMED BY:[place] [address] [place], [place] [phone] MEDICAL DIRECTORCRISTHIAN HUFF M.D. Performed By: #### C BC, CMP ####[place] [id number] [facility] Basophils/100 WBC (Bld) 2.4 % Normal . T [facility] Comment on above: Performed By: #### C BC, CMP ####[place] [id number] [facility] Eosinophils (Bld) [#/Vol] 0.3 10*3/uL Normal 0.0-0.45 [facility] Comment on above: Performed By: #### C BC, CMP ####[place] [id number] [facility] Eosinophils/100 WBC (Bld) 4.2 % Normal . [facility] Comment on above: Performed By: #### C BC, CMP ####[place] [id number] [facility] Erythrocyte distribution width (RBC) [Ratio] 14.4 % Normal 12.0-14.8 [facility] Comment on above: Performed By: #### C BC, CMP ####[place] [id number] [facility] Hematocrit (Bld) [Volume fraction] 35.2 % Low 38.8-50.0 [facility] Comment on above: Performed By: #### C BC, CMP ####[place] [id number] [facility] Hemoglobin (Bld) [Mass/Vol] 11.7 g/dL Low 13.0-17.0 [facility] Comment on above: Performed By: #### C BC, CMP ####[place] [id number] [facility] Lymphocytes (Bld) [#/Vol] 0.7 10*3/uL Low 1.00-4.8 [facility] Comment on above: Performed By: #### C BC, CMP ####[place] [id number] [facility] Lymphocytes/100 WBC (Bld) 10.8 % Normal . [facility] Comment on above: Performed By: #### C BC, CMP ####[place] [id number] [facility] MCH (RBC) [Entitic mass] 27.0 pg Low 27.5-35.2 [facility] Comment on above: Performed By: #### C BC, CMP ####[place] [id number] [facility] MCV (RBC) [Entitic vol] 80.8 fL Low 83.5-101 [facility] Comment on above: Performed By: #### C BC, CMP ####[address] Mean Corpuscular HGB Conc 33.4 g/dL Normal 32.5-35.6 [facility] Comment on above: Performed By: #### C BC, CMP ####[address] Monocytes (Bld) [#/Vol] 0.4 10*3/uL Normal 0.0-0.8 [facility] Comment on above: Performed By: #### C BC, CMP ####[place] [id number] [facility] Monocytes/100 WBC (Bld) 20.87 % High 0.00-20.00 [facility] Comment on above: Result Comment: For adults in ED, MDW > 20.0 may be associated with a higher risk of sepsis during the first 12 hrs of hospital admission Performed By: #### C BC, CMP ####[place] [id number] [facility] Monocytes/100 WBC (Bld) 6.4 % Normal . [facility] Comment on above: Performed By: #### C BC, CMP ####[place] [id number] [facility] Neutrophils (Bld) [#/Vol] 5.2 10*3/uL Normal 1.8-7.7 [facility] Comment on above: Performed By: #### C NEREIDA, CMP ####[address] Neutrophils/100 WBC (Bld) 76.2 % Normal . [facility] Comment on above: Performed By: #### C NEREIDA, CMP ####[address] NRBC% 0.0 /100{WBC} Normal 0-0.5 [facility] Comment on above: Performed By: #### C NEREIDA, CMP ####[address] Platelet mean volume (Bld) [Entitic vol] 7.8 fL Normal 6.6-10.1 [facility] Comment on above: Performed By: #### C NEREIDA, CMP ####[address] Platelets (Bld) [#/Vol] 124 10*3/uL Low 150-450 [facility] Comment on above: Performed By: #### C NEREIDA, CMP ####[address] RBC (Bld) [#/Vol] 4.35 10*6/uL Normal 3.90-5.60 [facility] Comment on above: Performed By: #### C NEREIDA, CMP ####[address] WBC (Bld) [#/Vol] 6.9 10*3/uL Normal 4.1-10.5 [facility] Comment on above: Performed By: #### C NEREIDA, CMP ####[address] Comprehensive Metabolic Pane dioni 12-17-2024 Albumin [Mass/Vol] 4.0 g/dL Normal 3.5-5.7 [facility] Comment on above: Performed By: #### C NEREIDA, CMP ####[address] Albumin/Globulin [Mass ratio] 1.3 {ratio} Normal [facility] Comment on above: Performed By: #### C BC, CMP ####[place] [id number] [facility] ALP [Catalytic activity/Vol] 55 U/L Normal 34-104 [facility] Comment on above: Performed By: #### C BC, CMP ####[address] ALT [Catalytic activity/Vol] 11 U/L Normal 7-52 [facility] Comment on above: Performed By: #### C NEREIDA, CMP ####[address] Anion gap [Moles/Vol] 12.3 mmol/L Normal 6.0-15.0 Th e [facility] Comment on above: Performed By: #### C BC, CMP ####[address] AST [Catalytic activity/Vol] 15 U/L Normal 13-39 [facility] Comment on above: Performed By: #### C NEREIDA, CMP ####[address] Bilirubin [Mass/Vol] 0.7 mg/dL Normal 0.3-1.0 [facility] Comment on above: Performed By: #### C BC, CMP ####[address] Calcium [Mass/Vol] 9.4 mg/dL Normal 8.6-10.3 [facility] Comment on above: Performed By: #### C BC, CMP ####[place] [id number] [facility] Chloride [Moles/Vol] 97 mmol/L Low 98-107 [facility] Comment on above: Performed By: #### C BC, CMP ####[address] CO2 [Moles/Vol] 30.7 mmol/L Normal 21.0-31.0 [facility] Comment on above: Performed By: #### C BC, CMP ####[address] [address] [facility] Creatinine [Mass/Vol] 4.96 mg/dL High 0.70-1.30 [facility] Comment on above: Performed By: #### C BC, CMP ####[address] [address] [facility] Creatinine Clr Calc Pharmacy 22.06 Normal [facility] Comment on above: Result Comment: PERF ORMED BY:[address] [place], [place] [phone] MEDICAL DIRECTORCRISTHIAN HUFF M.D. Performed By: #### C BC, CMP ####[address] [address] [facility] Estimated GFR 14.370 mL/Min Normal [facility] Comment on above: Performed By: #### C BC, CMP ####[place] [id number] [facility] Globulin (S) [Mass/Vol] 3.0 g/dL Normal T he [facility] Comment on above: Performed By: #### C BC, CMP ####[place] [id number] [facility] Glucose [Mass/Vol] 128 mg/dL High 70-100 [facility] Comment on above: Result Comment: [place] Glucose Reference Range is dependent on time and content of last meal. Glucose of more than 200 mg/dL in a nonstressed, ambulatory subject supports the diagnosis of Diabetes Mellitus. ADA recommended reference range Performed By: #### C BC, CMP ####[place] [id number] [facility] Potassium [Moles/Vol] 4.0 mmol/L Normal 3.5-5.1 [facility] Comment on above: Performed By: #### C BC, CMP ####[place] [id number] [facility] Protein [Mass/Vol] 7.0 g/dL Normal 6.4-8.9 [facility] Comment on above: Performed By: #### C BC, CMP ####[facility] Sodium [Moles/Vol] 136 mmol/L Normal 136-145 [facility] Comment on above: Performed By: #### C BC, CMP ####[facility] Urea nitrogen [Mass/Vol] 24 mg/dL Normal 7-25 [facility] Comment on above: Performed By: #### C BC, CMP ####[facility] Creatinine [Mass/volume] in Serum or PlasmaOrdered By: Mickey Gr on 12-17-2024 Creatinine [Mass/Vol] Creatinine [Mass/v olume] in Serum or Plasma High 0.70-1.30 [facility] Eosinophils Auto (Bld) [#/Vo l]Ordered By: Mickey Gr on 12-17-2024 Eosinophils (Bld) [#/Vol] Automated eosinophil count 0.0-0.45 [facility] Eosinophils/100 WBC Auto (Bl d)Ordered By: Mickey Gr on 12-17-2024 Eosinophils/100 WBC (Bld) Automated eosinophil % . [facility] Erythrocyte distribution wid th Auto (RBC) [Ratio]Ordered By: Mickey Gr on 12-17-2024 Erythrocyte distribution width (RBC) [Ratio] Erythrocyte distribution width [Ratio] by Automated count 12.0-14.8 [facility] Globulin Calc (S) [Mass/Vol] Ordered By: Mickey Gr on 12-17-2024 Globulin (S) [Mass/Vol] Serum globulin measurement by calculation (mass/volume) [facility] Glucose [Mass/volume] in Ser um or PlasmaOrdered By: Mickey Gr on 12-17-2024 Glucose [Mass/Vol] Glucose [Mass/volume ] in Serum or Plasma High 70-100 [facility] Comment on above: ADA recommended refe rence rangeRandom Glucose Reference Range is dependent on time and content of last meal. Glucose of more than 200 mg/dL in a nonstressed, ambulatory subject supports the diagnosis of Diabetes Mellitus. Hematocrit Auto (Bld) [Volum e fraction]Ordered By: Mickey Gr on 12-17-2024 Hematocrit (Bld) [Volume fraction] Hematocrit [Volume Fraction] of Blood by Automated count Low 38.8-50.0 [facility] Hemoglobin [Mass/volume] in BloodOrdered By: Mickey Gr on 12-17-2024 Hemoglobin (Bld) [Mass/Vol] Hemoglobin [Mass/volume] in Blood Low 13.0-17.0 [facility] Leukocytes [#/volume] correc celena for nucleated erythrocytes in Blood by Automated counOrdered By: Mickey Gr on 12-17-2024 WBC corrected for nucl RBC Auto (Bld) [#/Vol] Leukocytes [#/volume] corrected for nucleated erythrocytes in Blood by Automated coun 4.1-10.5 [facility] Lymphocytes Auto (Bld) [#/Vo l]Ordered By: Mickey Gr on 12-17-2024 Lymphocytes (Bld) [#/Vol] Lymphocytes [#/volume] in Blood by Automated count Low 1.00-4.8 [facility] Lymphocytes/100 WBC Auto (Bl d)Ordered By: Mickey Gr on 12-17-2024 Lymphocytes/100 WBC (Bld) Lymphocytes/100 leukocytes in Blood by Automated count . [facility] MCH Auto (RBC) [Entitic mass ]Ordered By: Mickey Gr on 12-17-2024 MCH (RBC) [Entitic mass] MCH [Entitic mass] by Automated count Low 27.5-35.2 [facility] MCHC Auto (RBC) [Mass/Vol]Or dered By: Mickey Gr on 12-17-2024 MCHC (RBC) [Mass/Vol] MCHC [Mass/volume] by Automated count 32.5-35.6 [facility] MCV Auto (RBC) [Entitic vol] Ordered By: Mickey Gr on 12-17-2024 MCV (RBC) [Entitic vol] MCV [Entitic vol ume] by Automated count Low 83.5-101 [facility] Monocyte distribution width [Entitic volume] in Blood by AutomatedOrdered By: Mickey Gr on 12-17-2024 Monocyte distribution width Auto (Bld) [Entitic vol] Monocyte distribution width [Entitic volume] in Blood by Automated High 0.00-20.00 [facility] Comment on above: For adults in ED, MD W > 20.0 may be associated with a higher risk of sepsis during the first 12 hrs of hospital admission Monocytes Auto (Bld) [#/Vol] Ordered By: Mickey Gr on 12-17-2024 Monocytes (Bld) [#/Vol] Automated blood monocyte count 0.0-0.8 [facility] Monocytes/100 WBC Auto (Bld) Ordered By: Mickey Gr on 12-17-2024 Monocytes/100 WBC (Bld) Automated monocyte % . [facility] Neutrophils Auto (Bld) [#/Vo l]Ordered By: Mickey Gr on 12-17-2024 Neutrophils (Bld) [#/Vol] Neutrophils [#/volume] in Blood by Automated count 1.8-7.7 [facility] Neutrophils/100 WBC Auto (Bl d)Ordered By: Mickey Gr on 12-17-2024 Neutrophils/100 WBC (Bld) Automated neutrophil % . [facility] No Panel InformationOrdered By: Mickey Gr on 12-17-2024 Estimated GFR (CKD-EPI) 14.370 mL/Min [facility] Creatinine Clearance (Chem 22.06 [facility] Nucleated erythrocytes [Pres ence] in Blood by Automated countOrdered By: Mickey Gr on 12-17-2024 Nucleated RBC Auto Ql (Bld) Nucleated erythrocytes [Presence] in Blood by Automated count 0-0.5 [facility] Platelet mean volume Auto (B ld) [Entitic vol]Ordered By: Mickey Gr on 12-17-2024 Platelet mean volume (Bld) [Entitic vol] Platelet mean volume [Entitic volume] in Blood by Automated count 6.6-10.1 [facility] Platelets Auto (Bld) [#/Vol] Ordered By: Mickey Gr on 12-17-2024 Platelets (Bld) [#/Vol] Platelets [#/vol ume] in Blood by Automated count Low 150-450 [facility] Potassium [Moles/volume] in Serum or PlasmaOrdered By: Mickey Gr on 12-17-2024 Potassium [Moles/Vol] Potassium [Moles/v olume] in Serum or Plasma 3.5-5.1 [facility] Protein [Mass/volume] in Ser um or PlasmaOrdered By: Mickey Gr on 12-17-2024 Protein [Mass/Vol] Protein [Mass/volume ] in Serum or Plasma 6.4-8.9 [facility] RBC Auto (Bld) [#/Vol]Ordere d By: Mickey Gr on 12-17-2024 RBC (Bld) [#/Vol] Erythrocytes [#/volu me] in Blood by Automated count 3.90-5.60 [facility] Serum or plasma albumin/glob ulin mass ratioOrdered By: Mickey Gr on 12-17-2024 Albumin/Globulin [Mass ratio] Serum or plasma albumin/globulin mass ratio [facility] Serum or plasma anion gap de terminationOrdered By: Mickey Gr on 12-17-2024 Anion gap [Moles/Vol] Serum or plasma an ion gap determination 6.0-15.0 [facility] Sodium [Moles/volume] in Ser um or PlasmaOrdered By: Mickey Gr on 12-17-2024 Sodium [Moles/Vol] Sodium [Moles/volume ] in Serum or Plasma 136-145 [facility] Urea nitrogen [Mass/volume] in Serum or PlasmaOrdered By: Mickey Gr on 12-17-2024 Urea nitrogen [Mass/Vol] Urea nitrogen [Mass/volume] in Serum or Plasma 7-25 [facility] WBC Auto (Bld) [#/Vol]Ordere d By: Mickey Gr on 12-17-2024 WBC (Bld) [#/Vol] Leukocytes [#/volume ] in Blood by Automated count 4.1-10.5 [facility] XR chest 2V*on 12-17-2024 XR chest 2V* Normal [facility] ECG 12 lead ECGon 12-16-2024 ECG 12 lead ECG Normal [facility] Letter (Out)on 12-02-2024 Letter (Out) [id number] Yoel Werner 1985 M Date Provider Department Center 12/02/2024 None-None [facility] AUTH [facility] Family History Problem Relation Age of Onset Pancreatic cancer Mother Diabetes Mother Liver disease Mother Hypertension Father Irritable bowel syndrome Father Stroke Father Coronary artery disease Brother 55 Lung cancer Paternal Grandmother Coronary artery disease Paternal Grandfather Family Status - Relation Status Age at Mother Father Alive Brother Paternal Grandmother Paternal Grandfather [facility] Follow-Upon 11-19-2024 Follow-Up [id number] Yoel Werner 1985 M Date Provider Department Center 11/19/2024 STEPHEN MCGHEE [facility] CARD [facility]AS Family History Problem Relation Age of Onset Pancreatic cancer Mother Diabetes Mother Liver disease Mother Hypertension Father Irritable bowel syndrome Father Stroke Father Coronary artery disease Brother 55 Lung cancer Paternal Grandmother Coronary artery disease Paternal Grandfather Family Status - Relation Status Age at Mother Father Alive Brother Paternal Grandmother Paternal Grandfather Level of Service:45057 [place] OFFICE/OUTPATIENT ESTABLISHED HIGH MDM 40 MIN (GC) [facility] 36on 11-09-2024 36 TC spoke to patient [...] need to have his chest cracked open. [facility] Winsome 11-03-2024 ANES ---- -------- Attestation signed by Sandra Fierro MD at 11/03/2024 10:09 AM Sandra Fierro MD, MPH, [facility], [facility], [facility] Interventional Cardiology Pager Email: [email or web address] du -------- Patient: Yoel Werner Procedure Information Date/Time: 11/03/24999 Procedure: TRANSESOPHAGEAL ECHO (MURIEL) Location: [facility] Vascular Lab Clinical [...] discussed with attending. Additional Equipment Requests Normal [facility] HPon 11-03-2024 HP ---- -------- Attestation signed by Sandra Fierro [...] me. Additional Comments: Sandra Fierro MD, MPH, [facility], [facility], [facility] Interventional Cardiology Pager Email: [email or web address] du -------- History Of Present Illness Yoel Werner is a 39 y.o. male with hx of DM, ESRD on dialysis, HTN, severe MR on TTE presenting for MURIEL to evaluate MR. Past Medical History He has a past medical history of Acute hypoxic respiratory failure ([facility]) (06/18/2024), Acute metabolic encephalopathy (06/18/2024), Anasarca (06/18/2024), Anemia in chronic kidney disease (06/18/2024), Atherosclerotic heart disease of [place] coronary artery without angina pectoris, AV fistula stenosis (06/18/2024), Chest pain (06/18/2024), CHF (congestive heart failure) ([facility]) (08/20/2023), Chronic bronchitis, mucopurulent ([facility]) (06/18/2024), Cigarette nicotine dependence without complication (06/18/2024), COVID-19, Current every day smoker (08/20/2023), Diabetes mellitus ([facility]) (08/20/2023), Diabetic retinopathy ([facility]), Erectile dysfunction due to arterial insufficiency (06/18/2024), ESRD (end stage renal disease) on dialysis ([facility])(03/01/2023), EBENEZER (generalized anxiety disorder) (06/18/2024), GERD (gastroesophageal reflux disease), HCAP (healthcare-associated pneumonia) (06/18/2024), History of MD (myocardial infarction) (08/20/2023), Hyperkalemia (06/18/2024), Hyperlipidemia (08/20/2023), Hypertensive emergency (03/17/2024), Hypoxemia (06/18/2024), Ischemic cardiomyopathy (03/17/2024), MGUS (monoclonal gammopathy of unknown significance) (06/18/2024), Mild episode of recurrent major depressive disorder (06/18/2024), Monoclonal (M) protein disease, multiple 'M' protein (06/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 Jorje Delgadillo MD PGY-5 Supervisor Speech [facility] Pager # [phone] Normal [facility] Labon 11-03-2024 Lab [id number] Yoel Werner 1985 M Date Provider Department [place] 11/03/2024 [id number]-[facility] OPD LAB RESOURCE [facility] OPD [place] Medical C Family History Problem Relation Age of Onset Pancreatic cancer Mother Diabetes Mother Liver disease Mother Hypertension Father Irritable bowel syndrome Father Stroke Father Coronary artery disease Brother 55 Lung cancer Paternal Grandmother Coronary artery disease Paternal Grandfather Family Status - Relation Status Age at Mother Father Alive Brother Paternal Grandmother Paternal Grandfather Normal [facility] NICOTINE AND METABOLITE, NEREIDA NTITATIVEon 11-03-2024 COTININE, QUANT 285 ng/mL Normal [facility] Comment on above: Performed By: #### L [id number] #### [facility] (BEAKER) [address] [place] [address] NICOTINE QUANT 25 ng/mL Normal [facility] Comment on above: Result Comment: INTE RPRETIVE [...] developed and its performance characteristics determined by [employer]. It has not been cleared or approved by the [place] Food and Drug Administration. This test was performed in a CLIA certified laboratory and is intended for clinical purposes. Performed By: [employer] [address] [place] [address] Photographic Printer: Gage Daley MD, PhD CLIA Number: [id number] Performed By: #### L [id number] #### [facility] (BEAKER) [address] [place] [address] NURSNOTEon 11-03-2024 NURSNOTE Bedside swallow stud y [...] of unit with all of belongings. Normal [facility] PANEL REACTIVE ANTIBODYon HOLD SPECIMEN Hold for add-ons. Normal [facility] Comment on above: Order Comment: To be drawn as needed for donor crossmatch purposes Result Comment: Auto resulted. Performed By: #### L [id number] #### [facility] TISSUE TYPING (HISTOTRAC) [address] [place] [address] [place] POCT GLUCOSE METER UNSOLICIT ED RESULTSon 11-03-2024 Glucose [Mass/Vol] 110 mg/dL High 70-105 [facility] Comment on above: Order Comment: Waive d Testing in the ED is performed under the ED CLIA certificate #[id number]. Result Comment: rcha gol Performed By: #### L [id number] #### [facility] (BEAKER) [address] [place] [address] SINGLE ANTIGEN CLASS Ion AB SCREEN COMMENTS No Specificites Found [facility] Comment on above: Performed By: #### L [id number] #### [facility] [address] [place] [address] Performed By: #### L [id number] #### [facility] ([facility]) [address] [place] [address] CLASS I TESTED DATE Normal [facility] Comment on above: Performed By: #### L [id number] #### [facility] [address] [place] [address] CPRA 0 [facility] Comment on above: Performed By: #### L [id number] #### [facility] [address] [place] [address] Performed By: #### L [id number] #### [facility] ([facility]) [address] [place] [address] SIGNED BY Signed by Govind tovar C[facility]) [place](ASCP), Pressurised Container Filler Transplant Immunology [facility] Comment on above: Result Comment: Clas s I Antigen Microbeads Performed By: #### L [id number] #### [facility] ([facility]) [address] [place] [address] Performed By: #### L [id number] #### [facility] ([facility]) [address] [place] [address] SINGLE ANTIGEN CLASS 1 TEST METHOD Class I Single Antigen Normal [facility] Comment on above: Performed By: #### L [id number] #### [facility] [address] [place] [address] SINGLE ANTIGEN CLASS IIon CLASS II TESTED DATE [facility] Comment on above: Performed By: #### L [id number] #### [facility] ([facility]) [address] [place] [address] SINGLE ANTIGEN CLASS 2 TEST METHOD Class II Single Antigen Normal [facility] Comment on above: Result Comment: Clas s II Antigen Microbeads Performed By: #### L [id number] #### [facility] ([facility]) [address] [place] [address] Basic Metabolic Panelon 10-17 Anion gap [Moles/Vol] 23.2 mmol/L High 6.0-15.0 Th e [facility] Comment on above: Performed By: #### B MP ####[address] [address] [facility] Calcium [Mass/Vol] 9.0 mg/dL Normal 8.6-10.3 [facility] Comment on above: Performed By: #### B MP ####[address] [address] [facility] Chloride [Moles/Vol] 99 mmol/L Normal 98-107 [facility] Comment on above: Performed By: #### B MP ####[address] [address] [facility] CO2 [Moles/Vol] 18.8 mmol/L Low 21.0-31.0 [facility] Comment on above: Performed By: #### B MP ####[address] [address] [facility] Creatinine [Mass/Vol] 10.70 mg/dL Significan t change up 0.70-1.30 [facility] Comment on above: Performed By: #### B MP ####[address] [address] [facility] Creatinine Clr Calc Pharmacy 10.13 Normal [facility] Comment on above: Result Comment: PERF ORMED BY:[address] [place], [place] [phone] MEDICAL DIRECTORCRISTHIAN HUFF M.D. Performed By: #### B MP ####[address] [address] [facility] Estimated GFR 5.712 mL/Min Normal [facility] Comment on above: Performed By: #### B MP ####[address] [address] [facility] Glucose [Mass/Vol] 69 mg/dL Low 70-100 [facility] Comment on above: Result Comment: [facility] Glucose Reference Range is dependent on time and content of last meal. Glucose of more than 200 mg/dL in a nonstressed, ambulatory subject supports the diagnosis of Diabetes Mellitus. ADA recommended reference range Performed By: #### B MP ####[facility] [place] [id number] [facility] Potassium [Moles/Vol] 6.0 mmol/L High 3.5-5.1 [facility] Comment on above: Performed By: #### B MP ####[place] [address] Sodium [Moles/Vol] 135 mmol/L Low 136-145 [facility] Comment on above: Performed By: #### B MP ####[place] [address] [place] [id number] [facility] Urea nitrogen [Mass/Vol] 100 mg/dL High 7-25 [facility] Comment on above: Performed By: #### B MP ####[place] [address] [place] [id number] [facility] CT abdomen pelvis wo conon 0 11-02-2024 CT abdomen pelvis wo con Normal [facility] CT head/brain wo conon 11-02 CT head/brain wo con Normal [facility] Calcium [Mass/volume] in Ser um or PlasmaOrdered By: Judd Jacobs on 11-02-2024 Calcium [Mass/Vol] Calcium [Mass/volume ] in Serum or Plasma 8.6-10.3 [facility] Carbon dioxide, total [Moles /volume] in Serum or PlasmaOrdered By: Judd Jacobs on 11-02-2024 CO2 [Moles/Vol] Carbon dioxide, tota l [Moles/volume] in Serum or Plasma Low 21.0-31.0 [facility] Chloride [Moles/volume] in S gretta or PlasmaOrdered By: Judd Jacobs on 11-02-2024 Chloride [Moles/Vol] Chloride [Moles/vol ume] in Serum or Plasma 98-107 [facility] Creatinine [Mass/volume] in Serum or PlasmaOrdered By: Judd Jacobs on 11-02-2024 Creatinine [Mass/Vol] Creatinine [Mass/v olume] in Serum or Plasma Significant change up 0.70-1.30 [facility] Comment on above: Delta: 9.89 on 11/01 Glucose Glucometer (BldC) [M ass/Vol]Ordered By: Law Cano on 11-02-2024 Glucose [Mass/Vol] Capillary blood gluc ose measurement by glucometer (mass/volume) [facility] Comment on above: Random Glucose Refer ence Range is dependent on time and content of last meal. Glucose of more than 200 mg/dL in a nonstressed, ambulatory subject supports the diagnosis of Diabetes Mellitus. Glucose Poct Glucometerson 0 11-02-2024 Commemt1 Glu2: Cleaned Meter Normal [facility] Comment on above: Result Comment: PERF ORMED BY:[place] [address] [place], [place] [phone] MEDICAL DIRECTORCRISTHIAN HUFF M.D. Performed By: #### G LULS ####Point of Care testing, Glucose [Mass/Vol] 192 mg/dL Normal [facility] Comment on above: Result Comment: [place] om Glucose Reference Range is dependent on time and content of last meal. Glucose of more than 200 mg/dL in a nonstressed, ambulatory subject supports the diagnosis of Diabetes Mellitus. Performed By: #### G LULS ####Point of Care testing, Glucose [Mass/Vol] 202 mg/dL Normal [facility] Comment on above: Result Comment: [place] om Glucose Reference Range is dependent on time and content of last meal. Glucose of more than 200 mg/dL in a nonstressed, ambulatory subject supports the diagnosis of Diabetes Mellitus.PERFORMED BY:[place] [address] [address] [place], [place] [phone] MEDICAL DIRECTORCRISTHIAN HUFF M.D. Performed By: #### G LULS ####Point of Care testing, Glucose [Mass/Vol] 64 mg/dL Normal [facility] Comment on above: Result Comment: [place] om Glucose Reference Range is dependent on time and content of last meal. Glucose of more than 200 mg/dL in a nonstressed, ambulatory subject supports the diagnosis of Diabetes Mellitus.PERFORMED BY:[facility] [place] [phone] MEDICAL BONITA HUFF M.D. Performed By: #### G LUBOUBACAR ####Point of Care testing, Glucose [Mass/volume] in Ser um or PlasmaOrdered By: Judd Jacobs on 11-02-2024 Glucose [Mass/Vol] Glucose [Mass/volume ] in Serum or Plasma Low 70-100 [facility] Comment on above: ADA recommended refe rence rangeRandom Glucose Reference Range is dependent on time and content of last meal. Glucose of more than 200 mg/dL in a nonstressed, ambulatory subject supports the diagnosis of Diabetes Mellitus. No Panel InformationOrdered By: Law Cano on 11-02-2024 Bedside Glucose Comment Glu2: cleaned meter [facility] No Panel InformationOrdered By: Judd Jacobs on 11-02-2024 Estimated GFR (CKD-EPI) 5.712 mL/Min [facility] Creatinine Clearance (Chem 10.13 [facility] Potassium [Moles/volume] in Serum or PlasmaOrdered By: Judd Jacobs on 11-02-2024 Potassium [Moles/Vol] Potassium [Moles/v olume] in Serum or Plasma High 3.5-5.1 [facility] Serum or plasma anion gap de terminationOrdered By: Judd Jacobs on 11-02-2024 Anion gap [Moles/Vol] Serum or plasma an ion gap determination High 6.0-15.0 [facility] Sodium [Moles/volume] in Ser um or PlasmaOrdered By: Judd Jacobs on 11-02-2024 Sodium [Moles/Vol] Sodium [Moles/volume ] in Serum or Plasma Low 136-145 [facility] Urea nitrogen [Mass/volume] in Serum or PlasmaOrdered By: Judd Jacobs on 11-02-2024 Urea nitrogen [Mass/Vol] Urea nitrogen [Mass/volume] in Serum or Plasma High 7-25 [facility] X-ray reportOrdered By: Dexter Mart on 11-02-2024 Study report [facility] [place] [address] XRay Report Signed Patient: Yoel Werner MR#: [id number] : 1985 Acct:[id number] Age/Sex: 39 / M ADM Date: 5 Loc: Room: [address] [place] [address] Type: ADM INOo Attending Dr: Law Cano [...] Mart Jr., D.O.11/02/2024 8:28 AM Dictation Location: [place] [address] Transcribed By: BRENNAN 11/02/24827 Dictated By: Yoel Mart Jr, DO 11/02/24827 Signed By: 11/02/24 0828 [facility] XR chest 1V portableon 11-02 XR chest 1V portable Normal [facility] Alanine aminotransferase [En zymatic activity/volume] in Serum or PlasmaOrdered By: Hector Mann on 11-01-2024 ALT [Catalytic activity/Vol] Alanine aminotransferase [Enzymatic activity/volume] in Serum or Plasma [facility] Albumin [Mass/volume] in Ser um or Plasma by Bromocresol green (BCG) dye binding methoOrdered By: Hector Mann on 11-01-2024 Albumin BCG dye [Mass/Vol] Albumin [Mass/volume] in Serum or Plasma by Bromocresol green (BCG) dye binding metho 3.5-5.7 [facility] Alkaline phosphatase [Enzyma tic activity/volume] in Serum or PlasmaOrdered By: Hector Mann on 11-01-2024 ALP [Catalytic activity/Vol] Alkaline phosphatase [Enzymatic activity/volume] in Serum or Plasma 34-104 [facility] Appearance of UrineOrdered B y: Hector Mann on 11-01-2024 Appearance (U) Urine appearance Clear [facility] Aspartate aminotransferase [ Enzymatic activity/volume] in Serum or PlasmaOrdered By: Hector Mann on 11-01-2024 AST [Catalytic activity/Vol] Aspartate aminotransferase [Enzymatic activity/volume] in Serum or Plasma 13-39 [facility] B-Type Natriuretic Peptideon 11-01-2024 Natriuretic peptide B (Bld) [Mass/Vol] 1961.0 pg/mL High 5-100 [facility] Comment on above: Result Comment: PERF ORMED BY:[facility] [place], [place] [phone] MEDICAL DIRECTORCRISTHIAN HUFF M.D. Performed By: #### C BC, BNP, PT, CMP, MG, CK, HS TROP ####[facility] [place] [address] [facility] Bacteria [Presence] in Urine by AutomatedOrdered By: Hector Mann on 11-01-2024 Bacteria Auto Ql (U) Bacteria [Presence] in Urine by Automated None Seen [facility] Basophils Auto (Bld) [#/Vol] Ordered By: Hector Mann on 11-01-2024 Basophils (Bld) [#/Vol] Automated basophil count 0.0-0.2 [facility] Basophils/100 WBC Auto (Bld) Ordered By: Hector Mann on 11-01-2024 Basophils/100 WBC (Bld) Automated basophil % . [facility] Bilirubin Test strip Ql (U)O rdered By: Hector Mann on 11-01-2024 Bilirubin Ql (U) Bilirubin.total [Presence] in Urine by Test strip Negative [facility] Bilirubin.total [Mass/volume ] in Serum or PlasmaOrdered By: Hector Mann on 11-01-2024 Bilirubin [Mass/Vol] Bilirubin.total [Mass/volume] in Serum or Plasma 0.3-1.0 [facility] BioFire Not Detectedon 11-01 BioFire Not Detected Not detected Normal Not Detecte T [facility] Comment on above: Result Comment: This is a duplicate RP2.1 COVID (PCR) result to be used for statistical tracking purpose only.PERFORMED BY:[address] [place], [place] [phone] MEDICAL DIRECTORCRISTHIAN HUFF M.D. Performed By: #### R DAMIEN PANEL UPP., BIOFIRECOVNOTDE ####[place] [id number] [facility] Blood Cultureon 11-01-2024 Bacteria identified Cx Nom (Bld) NO GROWTH 5 DAYS PERFORMED BY: [place] [address] PATHOLOGIST INVESTIGATIONS DIRECTOR CRISTHIAN HUFF M.D. Normal [facility] Comment on above: Performed By: #### C UBLD ####[address] Bacteria identified Cx Nom (Bld) NO GROWTH 5 DAYS PERFORMED BY: [place] [address] PATHOLOGIST INVESTIGATIONS DIRECTOR CRISTHIAN HUFF M.D. Normal [facility] Comment on above: Performed By: #### C UBLD ####[address] COVID-19 Detected/Not Detect edOrdered By: Hector Mann on 11-01-2024 SARS-CoV-2 (COVID-19) RNA HAO+non-probe Ql (Nph) Not detected Not Detecte [facility] Comment on above: This is a duplicate RP2.1 COVID (PCR) result to be used for statistical tracking purpose only. Calcium [Mass/volume] in Ser um or PlasmaOrdered By: Hector Mann on 11-01-2024 Calcium [Mass/Vol] Calcium [Mass/volume ] in Serum or Plasma 8.6-10.3 [facility] Carbon dioxide, total [Moles /volume] in Serum or PlasmaOrdered By: Hector Mann on 11-01-2024 CO2 [Moles/Vol] Carbon dioxide, tota l [Moles/volume] in Serum or Plasma Low 21.0-31.0 [facility] Chloride [Moles/volume] in S gretta or PlasmaOrdered By: Hector Mann on 11-01-2024 Chloride [Moles/Vol] Chloride [Moles/vol ume] in Serum or Plasma Low 98-107 [facility] Color Auto (U)Ordered By: Anton Mann on 11-01-2024 Color (U) Color of Urine by Auto Yellow [facility] Complete Blood Count Auto Di ffon 11-01-2024 Basophils (Bld) [#/Vol] 0.1 10*3/uL Normal 0.0-0.2 [facility] Comment on above: Result Comment: PERF ORMED BY:[address] [place], [place] [phone] MEDICAL DIRECTORCRISTHIAN HUFF M.D. Performed By: #### C BC, BNP, PT, CMP, MG, CK, HS TROP ####[address] Basophils/100 WBC (Bld) 2.1 % Normal . Karlee levine [facility] Comment on above: Performed By: #### C BC, BNP, PT, CMP, MG, CK, HS TROP ####[address] Eosinophils (Bld) [#/Vol] 0.3 10*3/uL Normal 0.0-0.45 [facility] Comment on above: Performed By: #### C BC, BNP, PT, CMP, MG, CK, HS TROP ####[place] [id number] [facility] Eosinophils/100 WBC (Bld) 5.7 % Normal . [facility] Comment on above: Performed By: #### C BC, BNP, PT, CMP, MG, CK, HS TROP ####[place] [id number] [facility] Erythrocyte distribution width (RBC) [Ratio] 15.4 % High 12.0-14.8 [facility] Comment on above: Performed By: #### C BC, BNP, PT, CMP, MG, CK, HS TROP ####[address] Hematocrit (Bld) [Volume fraction] 31.0 % Low 38.8-50.0 [facility] Comment on above: Performed By: #### C BC, BNP, PT, CMP, MG, CK, HS TROP ####[address] Hemoglobin (Bld) [Mass/Vol] 10.5 g/dL Low 13.0-17.0 [facility] Comment on above: Performed By: #### C BC, BNP, PT, CMP, MG, CK, HS TROP ####[address] Lymphocytes (Bld) [#/Vol] 0.8 10*3/uL Low 1.00-4.8 [facility] Comment on above: Performed By: #### C BC, BNP, PT, CMP, MG, CK, HS TROP ####[address] Lymphocytes/100 WBC (Bld) 13.5 % Normal . [facility] Comment on above: Performed By: #### C BC, BNP, PT, CMP, MG, CK, HS TROP ####[address] MCH (RBC) [Entitic mass] 28.6 pg Normal 27.5-35.2 [facility] Comment on above: Performed By: #### C BC, BNP, PT, CMP, MG, CK, HS TROP ####[address] MCV (RBC) [Entitic vol] 84.3 fL Normal 83.5-101 T [facility] Comment on above: Performed By: #### C BC, BNP, PT, CMP, MG, CK, HS TROP ####[address] [place] [address] [place] Mean Corpuscular HGB Conc 33.9 g/dL Normal 32.5-35.6 [facility] Comment on above: Performed By: #### C BC, BNP, PT, CMP, MG, CK, HS TROP ####[address] Monocytes (Bld) [#/Vol] 0.4 10*3/uL Normal 0.0-0.8 [facility] Comment on above: Performed By: #### C BC, BNP, PT, CMP, MG, CK, HS TROP ####[address] Monocytes/100 WBC (Bld) 17.06 % Normal 0.00-20.00 [facility] Comment on above: Performed By: #### C BC, BNP, PT, CMP, MG, CK, HS TROP ####[address] Monocytes/100 WBC (Bld) 6.3 % Normal . [facility] Comment on above: Performed By: #### C BC, BNP, PT, CMP, MG, CK, HS TROP ####[address] Neutrophils (Bld) [#/Vol] 4.3 10*3/uL Normal 1.8-7.7 [facility] Comment on above: Performed By: #### C BC, BNP, PT, CMP, MG, CK, HS TROP ####[address] Neutrophils/100 WBC (Bld) 72.4 % Normal . [facility] Comment on above: Performed By: #### C BC, BNP, PT, CMP, MG, CK, HS TROP ####[address] NRBC% 0.0 /100{WBC} Normal 0-0.5 [facility] Comment on above: Performed By: #### C BC, BNP, PT, CMP, MG, CK, HS TROP ####[address] Platelet mean volume (Bld) [Entitic vol] 7.3 fL Normal 6.6-10.1 [facility] Comment on above: Performed By: #### C BC, BNP, PT, CMP, MG, CK, HS TROP ####[address] Platelets (Bld) [#/Vol] 142 10*3/uL Low 150-450 [facility] Comment on above: Performed By: #### C BC, BNP, PT, CMP, MG, CK, HS TROP ####[address] RBC (Bld) [#/Vol] 3.68 10*6/uL Low 3.90-5.60 [facility] Comment on above: Performed By: #### C BC, BNP, PT, CMP, MG, CK, HS TROP ####[address] WBC (Bld) [#/Vol] 5.9 10*3/uL Normal 4.1-10.5 [facility] Comment on above: Performed By: #### C BC, BNP, PT, CMP, MG, CK, HS TROP ####[address] Comprehensive Metabolic Pane dioni 11-01-2024 Albumin [Mass/Vol] 3.9 g/dL Normal 3.5-5.7 [facility] Comment on above: Performed By: #### C BC, BNP, PT, CMP, MG, CK, HS TROP ####[address] Albumin/Globulin [Mass ratio] 1.3 {ratio} Normal [facility] Comment on above: Performed By: #### C BC, BNP, PT, CMP, MG, CK, HS TROP ####[address] ALP [Catalytic activity/Vol] 55 U/L Normal 34-104 [facility] Comment on above: Performed By: #### C BC, BNP, PT, CMP, MG, CK, HS TROP ####[address] ALT [Catalytic activity/Vol] 21 U/L Normal 7-52 [facility] Comment on above: Performed By: #### C BC, BNP, PT, CMP, MG, CK, HS TROP ####[address] Anion gap [Moles/Vol] 22.9 mmol/L High 6.0-15.0 Th e [facility] Comment on above: Performed By: #### C BC, BNP, PT, CMP, MG, CK, HS TROP ####[address] AST [Catalytic activity/Vol] 24 U/L Normal 13-39 [facility] Comment on above: Performed By: #### C BC, BNP, PT, CMP, MG, CK, HS TROP ####[address] Bilirubin [Mass/Vol] 0.7 mg/dL Normal 0.3-1.0 [facility] Comment on above: Performed By: #### C BC, BNP, PT, CMP, MG, CK, HS TROP ####[address] Calcium [Mass/Vol] 8.9 mg/dL Normal 8.6-10.3 [facility] Comment on above: Performed By: #### C BC, BNP, PT, CMP, MG, CK, HS TROP ####[address] Chloride [Moles/Vol] 97 mmol/L Low 98-107 [facility] Comment on above: Performed By: #### C BC, BNP, PT, CMP, MG, CK, HS TROP ####[address] CO2 [Moles/Vol] 19.5 mmol/L Low 21.0-31.0 [facility] Comment on above: Performed By: #### C BC, BNP, PT, CMP, MG, CK, HS TROP ####[address] Creatinine [Mass/Vol] 9.89 mg/dL High 0.70-1.30 [facility] Comment on above: Performed By: #### C BC, BNP, PT, CMP, MG, CK, HS TROP ####[address] Creatinine Clr Calc Pharmacy 10.86 Normal [facility] Comment on above: Performed By: #### C BC, BNP, PT, CMP, MG, CK, HS TROP ####[address] Estimated GFR 6.278 mL/Min Normal [facility] Comment on above: Performed By: #### C BC, BNP, PT, CMP, MG, CK, HS TROP ####[address] Globulin (S) [Mass/Vol] 3.0 g/dL Normal [facility] Comment on above: Performed By: #### C BC, BNP, PT, CMP, MG, CK, HS TROP ####[address] Glucose [Mass/Vol] 127 mg/dL High 70-100 [facility] Comment on above: Result Comment: [place] Glucose Reference Range is dependent on time and content of last meal. Glucose of more than 200 mg/dL in a nonstressed, ambulatory subject supports the diagnosis of Diabetes Mellitus. ADA recommended reference range Performed By: #### C BC, BNP, PT, CMP, MG, CK, HS TROP ####[address] Potassium [Moles/Vol] 6.4 mmol/L Off scale high 3.5-5.1 [facility] Comment on above: Result Comment: Crit ical Result Called to and read back by: ANGELIQUE MEYER at: 11/01/2024 21:34:39 by:[id number] Performed By: #### C BC, BNP, PT, CMP, MG, CK, HS TROP ####[address] Protein [Mass/Vol] 6.9 g/dL Normal 6.4-8.9 [facility] Comment on above: Performed By: #### C BC, BNP, PT, CMP, MG, CK, HS TROP ####[address] Sodium [Moles/Vol] 133 mmol/L Low 136-145 [facility] Comment on above: Performed By: #### C BC, BNP, PT, CMP, MG, CK, HS TROP ####[address] Urea nitrogen [Mass/Vol] 100 mg/dL High 7-25 [facility] Comment on above: Performed By: #### C BC, BNP, PT, CMP, MG, CK, HS TROP ####[address] Creatine Kinaseon 11-01-2024 CK [Catalytic activity/Vol] 226 U/L High 30-223 [facility] Comment on above: Performed By: #### C BC, BNP, PT, CMP, MG, CK, HS TROP ####[address] Creatine kinase [Enzymatic a ctivity/volume] in Serum or PlasmaOrdered By: Hector Mann on 11-01-2024 CK [Catalytic activity/Vol] Creatine kinase [Enzymatic activity/volume] in Serum or Plasma High 30-223 [facility] Creatinine [Mass/volume] in Serum or PlasmaOrdered By: Hector Mann on 11-01-2024 Creatinine [Mass/Vol] Creatinine [Mass/v olume] in Serum or Plasma High 0.70-1.30 [facility] Dipstick and Microscopicon 0 11-01-2024 Appearance (U) Clear Normal Clear [facility] Comment on above: Order Comment: Name Collection Type:: Clean-Voided Midstream Performed By: #### A DDONUAPLUS ####[address] [place] [address] [facility] Bacteria,Urine Rare Normal None Seen [facility] Comment on above: Order Comment: Name Collection Type:: Clean-Voided Midstream Performed By: #### A DDONUAPLUS ####[address] [address] [place] Bilirubin,Urine Negative Normal Negative [facility] Comment on above: Order Comment: Name Collection Type:: Clean-Voided Midstream Performed By: #### A DDONUAPLUS ####[address] [address] [facility] Color (U) Light-Yellow Normal Yellow [facility] Comment on above: Order Comment: Name Collection Type:: Clean-Voided Midstream Performed By: #### A DDONUAPLUS ####[address] [address] [facility] Glucose Ql (U) 200 mg/dL High Normal [facility] Comment on above: Order Comment: Name Collection Type:: Clean-Voided Midstream Performed By: #### A DDONUAPLUS ####[address] [address] [facility] Hyaline Casts,Urine None Normal 0-8 [facility] Comment on above: Order Comment: Name Collection Type:: Clean-Voided Midstream Result Comment: PERF ORMED BY:[address] [place], [place] [phone] MEDICAL DIRECTORCRISTHIAN HUFF M.D. Performed By: #### A DDONUAPLUS ####[address] [address] [facility] Ketones Ql (U) Negative Normal Negative [facility] Comment on above: Order Comment: Name Collection Type:: Clean-Voided Midstream Performed By: #### A DDONUAPLUS ####[address] [address] [facility] Leukocyte esterase Test strip Ql (U) Negative Normal Negative [facility] Comment on above: Order Comment: Name Collection Type:: Clean-Voided Midstream Performed By: #### A DDONUAPLUS ####[address] [address] [facility] Nitrite,Urine Negative Normal Negative [facility] Comment on above: Order Comment: Name Collection Type:: Clean-Voided Midstream Performed By: #### A DDONUAPLUS ####[address] [address] [facility] Occult Blood,Urine 2+ High Negative [facility] Comment on above: Order Comment: Name Collection Type:: Clean-Voided Midstream Result Comment: PERF ORMED BY:[address] [place] [phone] MEDICAL DIRECTORCRISTHIAN HUFF M.D. Performed By: #### A DDONUAPLUS ####[address] [address] [facility] pH (U) 7.0 [pH] Normal 5.0-9.0 [facility] Comment on above: Order Comment: Name Collection Type:: Clean-Voided Midstream Performed By: #### A DDONUAPLUS ####[address] [address] [facility] Protein (U) [Mass/Vol] 200 mg/dL High Negative Th e [facility] Comment on above: Order Comment: Name Collection Type:: Clean-Voided Midstream Performed By: #### A DDONUAPLUS ####[address] [address] [facility] RBC,Urine 10-19 High 0-4 [facility] Comment on above: Order Comment: Name Collection Type:: Clean-Voided Midstream Performed By: #### A DDONUAPLUS ####[address] [address] [facility] Specificy [place],Urine 1.010 Normal 1.001-1.030 [facility] Comment on above: Order Comment: Name Collection Type:: Clean-Voided Midstream Performed By: #### A DDONUAPLUS ####[address] [address] [facility] Squamous Epithelial Cell,Urine 1-2 Normal 0-2 [facility] Comment on above: Order Comment: Name Collection Type:: Clean-Voided Midstream Performed By: #### A DDONUAPLUS ####[facility] Urobilinogen,Urine Normal Normal Normal [facility] Comment on above: Order Comment: Name Collection Type:: Clean-Voided Midstream Performed By: #### A DDONUAPLUS ####[place] [address] [address] WBC,Urine 3-4 Normal 0-4 [facility] Comment on above: Order Comment: Name Collection Type:: Clean-Voided Midstream Performed By: #### A DDONUAPLUS ####[place] [address] [address] ECG 12 lead ECGon 11-01-2024 ECG 12 lead ECG Normal [facility] Eosinophils Auto (Bld) [#/Vo l]Ordered By: Hector Mann on 11-01-2024 Eosinophils (Bld) [#/Vol] Automated eosinophil count 0.0-0.45 [facility] Eosinophils/100 WBC Auto (Bl d)Ordered By: Hector Mann on 11-01-2024 Eosinophils/100 WBC (Bld) Automated eosinophil % . [facility] Epithelial cells.squamous [# /area] in Urine sediment by Automated countOrdered By: Hector Mann on 11-01-2024 Epithelial cells.squamous Auto (Urine sed) [#/Area] Epithelial cells.squamous [#/area] in Urine sediment by Automated count 0-2 [facility] Erythrocyte distribution wid th Auto (RBC) [Ratio]Ordered By: Hector Mann on 11-01-2024 Erythrocyte distribution width (RBC) [Ratio] Erythrocyte distribution width [Ratio] by Automated count High 12.0-14.8 [facility] Erythrocytes [#/area] in Uri ne sediment by Automated countOrdered By: Hector Mann on 11-01-2024 RBC Auto (Urine sed) [#/Area] Erythrocytes [#/area] in Urine sediment by Automated count High 0-4 [facility] Globulin Calc (S) [Mass/Vol] Ordered By: Hector Mann on 11-01-2024 Globulin (S) [Mass/Vol] Serum globulin measurement by calculation (mass/volume) [facility] Glucose Glucometer (BldC) [M ass/Vol]Ordered By: Hector Mann on 11-01-2024 Glucose [Mass/Vol] Capillary blood gluc ose measurement by glucometer (mass/volume) [facility] Comment on above: Random Glucose Refer ence Range is dependent on time and content of last meal. Glucose of more than 200 mg/dL in a nonstressed, ambulatory subject supports the diagnosis of Diabetes Mellitus. Glucose Poct Glucometerson 0 11-01-2024 Commemt1 Glu2: Cleaned Meter Normal [facility] Comment on above: Result Comment: PERF ORMED BY:[facility], [place] [phone] MEDICAL DIRECTORCRISTHIAN HUFF M.D. Performed By: #### G LULS ####Point of Care testing, Glucose [Mass/Vol] 128 mg/dL Normal [facility] Comment on above: Result Comment: [place] om Glucose Reference Range is dependent on time and content of last meal. Glucose of more than 200 mg/dL in a nonstressed, ambulatory subject supports the diagnosis of Diabetes Mellitus. Performed By: #### G LULS ####Point of Care testing, Glucose [Mass/volume] in Ser um or PlasmaOrdered By: Hector Mann on 11-01-2024 Glucose [Mass/Vol] Glucose [Mass/volume ] in Serum or Plasma High 70-100 [facility] Comment on above: ADA recommended refe [...] in Urine by Test strip High Normal [facility] Hematocrit Auto (Bld) [Volum e fraction]Ordered By: Hector Mann on 11-01-2024 Hematocrit (Bld) [Volume fraction] Hematocrit [Volume Fraction] of Blood by Automated count Low 38.8-50.0 [facility] Hemoglobin Test strip Ql (U) Ordered By: Hector Mann on 11-01-2024 Hemoglobin Ql (U) Hemoglobin [Presence ] in Urine by Test strip High Negative [facility] Hemoglobin [Mass/volume] in BloodOrdered By: Hector Mann on 11-01-2024 Hemoglobin (Bld) [Mass/Vol] Hemoglobin [Mass/volume] in Blood Low 13.0-17.0 [facility] Hyaline casts [#/area] in Ur ine sediment by Automated countOrdered By: Hector Mann on 11-01-2024 Hyaline casts Auto (Urine sed) [#/Area] Hyaline casts [#/area] in Urine sediment by Automated count 0-8 [facility] INR in Platelet poor plasma by Coagulation assayOrdered By: Hector Mann on 11-01-2024 INR Coag (PPP) [Relative time] INR in Platelet poor plasma by Coagulation assay [facility] Comment on above: INR Therapeutic Rang [...] i n Urine by Test strip Negative [facility] Laboratory - Microbiology an d Antimicrobial susceptibilityOrdered By: Hector Mann on 11-01-2024 Bacteria identified Cx Nom (Bld) NO GROWTH 5 DAYS [facility] Bacteria identified Cx Nom (Bld) NO GROWTH 5 DAYS [facility] Lactate [Moles/volume] in Se rum or PlasmaOrdered By: Hector Mann on 11-01-2024 Lactate [Moles/Vol] Lactate [Moles/volum e] in Serum or Plasma 0.5-1.9 [facility] Comment on above: Lactic Acid referenc e range has been updated to 0.5 1.9 mmol/L and the critical range of 2.0 or greater. Lactic Acidon 11-01-2024 Lactate [Moles/Vol] 0.5 mmol/L Normal 0.5-1.9 [facility] Comment on above: Result Comment: Lact ic Acid reference range has been updated to 0.5 ? 1.9 mmol/L and the critical range of 2.0 or greater.PERFORMED BY:[facility] [place], [place] [phone] MEDICAL DIRECTORCRISTHIAN HUFF M.D. Performed By: #### L ACTIC ####[facility] [place] [address] [facility] Leukocyte esterase [Presence ] in Urine by Test stripOrdered By: Hector Mann on 11-01-2024 Leukocyte esterase Test strip Ql (U) Leukocyte esterase [Presence] in Urine by Test strip Negative [facility] Leukocytes [#/area] in Urine sediment by Automated countOrdered By: Hector Mann on 11-01-2024 WBC Auto (Urine sed) [#/Area] Leukocytes [#/area] in Urine sediment by Automated count 0-4 [facility] Leukocytes [#/volume] correc celena for nucleated erythrocytes in Blood by Automated counOrdered By: Hector Mann on 11-01-2024 WBC corrected for nucl RBC Auto (Bld) [#/Vol] Leukocytes [#/volume] corrected for nucleated erythrocytes in Blood by Automated coun 4.1-10.5 [facility] Lymphocytes Auto (Bld) [#/Vo l]Ordered By: Hector Mann on 11-01-2024 Lymphocytes (Bld) [#/Vol] Lymphocytes [#/volume] in Blood by Automated count Low 1.00-4.8 [facility] Lymphocytes/100 WBC Auto (Bl d)Ordered By: Hector Mann on 11-01-2024 Lymphocytes/100 WBC (Bld) Lymphocytes/100 leukocytes in Blood by Automated count . [facility] MCH Auto (RBC) [Entitic mass ]Ordered By: Hector Mann on 11-01-2024 MCH (RBC) [Entitic mass] MCH [Entitic mass] by Automated count 27.5-35.2 [facility] MCHC Auto (RBC) [Mass/Vol]Or dered By: Hector Mann on 11-01-2024 MCHC (RBC) [Mass/Vol] MCHC [Mass/volume] by Automated count 32.5-35.6 [facility] MCV Auto (RBC) [Entitic vol] Ordered By: Hector Mann on 11-01-2024 MCV (RBC) [Entitic vol] MCV [Entitic vol ume] by Automated count 83.5-101 [facility] Magnesiumon 11-01-2024 Magnesium [Mass/Vol] 2.8 mg/dL High 1.9-2.7 [facility] Comment on above: Result Comment: PERF ORMED BY:[address] [place], [place] [phone] MEDICAL DIRECTORCRISTHIAN HUFF M.D. Performed By: #### C BC, BNP, PT, CMP, MG, CK, HS TROP ####[address] [address] [facility] Magnesium [Mass/volume] in S gretta or PlasmaOrdered By: Hector Mnan on 11-01-2024 Magnesium [Mass/Vol] Magnesium [Mass/vol ume] in Serum or Plasma High 1.9-2.7 [facility] Monocyte distribution width [Entitic volume] in Blood by AutomatedOrdered By: Hector Mann on 11-01-2024 Monocyte distribution width Auto (Bld) [Entitic vol] Monocyte distribution width [Entitic volume] in Blood by Automated 0.00-20.00 [facility] Monocytes Auto (Bld) [#/Vol] Ordered By: Hector Mann on 11-01-2024 Monocytes (Bld) [#/Vol] Automated blood monocyte count 0.0-0.8 [facility] Monocytes/100 WBC Auto (Bld) Ordered By: Hector Mann on 11-01-2024 Monocytes/100 WBC (Bld) Automated monocyte % . [facility] Natriuretic peptide B [Mass/ Vol]Ordered By: Hector Mann on 11-01-2024 Natriuretic peptide B (Bld) [Mass/Vol] BNP ser/plas High 5-100 [facility] Neutrophils Auto (Bld) [#/Vo l]Ordered By: Hector Mann on 11-01-2024 Neutrophils (Bld) [#/Vol] Neutrophils [#/volume] in Blood by Automated count 1.8-7.7 [facility] Neutrophils/100 WBC Auto (Bl d)Ordered By: Hector Mann on 11-01-2024 Neutrophils/100 WBC (Bld) Automated neutrophil % . [facility] Nitrite Test strip Ql (U)Ord ered By: Hector Mann on 11-01-2024 Nitrite Ql (U) Nitrite [Presence] i n Urine by Test strip Negative [facility] No Panel InformationOrdered By: Hector Mann on 11-01-2024 Estimated GFR (CKD-EPI) 6.278 mL/Min [facility] Creatinine Clearance (Chem 10.86 [facility] Bedside Glucose Comment Glu2: cleaned meter [facility] Nucleated erythrocytes [Pres ence] in Blood by Automated countOrdered By: Hector Mann on 11-01-2024 Nucleated RBC Auto Ql (Bld) Nucleated erythrocytes [Presence] in Blood by Automated count 0-0.5 [facility] Platelet mean volume Auto (B ld) [Entitic vol]Ordered By: Hector Mann on 11-01-2024 Platelet mean volume (Bld) [Entitic vol] Platelet mean volume [Entitic volume] in Blood by Automated count 6.6-10.1 [facility] Platelets Auto (Bld) [#/Vol] Ordered By: Hector Mann on 11-01-2024 Platelets (Bld) [#/Vol] Platelets [#/vol ume] in Blood by Automated count Low 150-450 [facility] Potassium [Moles/volume] in Serum or PlasmaOrdered By: Hector Mann on 11-01-2024 Potassium [Moles/Vol] Potassium [Moles/v olume] in Serum or Plasma Critically high 3.5-5.1 [facility] Comment on above: Critical Result Call ed to and read back by: ANGELIQUE MEYER at: 11/01/2024 21:34:39 by:[id number] Protein Test strip (U) [Mass /Vol]Ordered By: Hector Mann on 11-01-2024 Protein (U) [Mass/Vol] Protein [Mass/vol ume] in Urine by Test strip High Negative [facility] Protein [Mass/volume] in Ser um or PlasmaOrdered By: Hector Mann on 11-01-2024 Protein [Mass/Vol] Protein [Mass/volume ] in Serum or Plasma 6.4-8.9 [facility] Prothrombin Time INRon 11-01 INR Coag (PPP) [Relative time] 1.2 {INR} Normal [facility] Comment on above: Result [...] patients with mechanical heart valves: 3 - 4.5PERFORMED BY:[address] [place], [place] [phone] MEDICAL DIRECTORCRISTHIAN HUFF M.D. Performed By: #### C BC, BNP, PT, CMP, MG, CK, HS TROP ####[place] [address] [place] [address] [facility] PT Coag (PPP) [Time] 13.5 s High 9.0-12.9 [facility] Comment on above: Result Comment: A matocrit value greater than 55% may lead to inaccurate results in coagulation testing. Patients having hematocrit values >55% require a special collection tube for coagulation studies. Please contact the laboratory at [phone] for redraw instructions. Performed By: #### C BC, BNP, PT, CMP, MG, CK, HS TROP ####[facility] [id number] [place] [address] [facility] Prothrombin time (PT)Ordered By: Hector Mann on 11-01-2024 PT Coag (PPP) [Time] Prothrombin time (PT) High 9.0- 12.9 [facility] Comment on above: A hematocrit value g reater than 55% may lead to inaccurate results in coagulation testing. Patients having hematocrit values >55% require a special collection tube for coagulation studies. Please contact the laboratory at [phone] for redraw instructions. RBC Auto (Bld) [#/Vol]Ordere d By: Hector Mann on 11-01-2024 RBC (Bld) [#/Vol] Erythrocytes [#/volu me] in Blood by Automated count Low 3.90-5.60 [facility] Respiratory (Upper) Panel, P CRon 11-01-2024 Respiratory (Upper) Panel, PCR Normal [facility] Comment on above: Performed By: #### R DAMIEN PANEL UPP., BIOFIRECOVNOTDE ####[facility] [id number] [place] [id number] [facility] Respiratory pathogens DNA an d RNA panel - Nasopharynx by HAO with non-probe detectionOrdered By: Hector Mann on 11-01-2024 Respiratory pathogens DNA and RNA panel HAO+non-probe (Nph) Respiratory pathogens DNA and RNA panel - Nasopharynx by HAO with non-probe detection [facility] Serum or plasma albumin/glob ulin mass ratioOrdered By: Hector Mann on 11-01-2024 Albumin/Globulin [Mass ratio] Serum or plasma albumin/globulin mass ratio [facility] Serum or plasma anion gap de terminationOrdered By: Hector Mann on 11-01-2024 Anion gap [Moles/Vol] Serum or plasma an ion gap determination High 6.0-15.0 [facility] Sodium [Moles/volume] in Ser um or PlasmaOrdered By: Hector Mann on 11-01-2024 Sodium [Moles/Vol] Sodium [Moles/volume ] in Serum or Plasma Low 136-145 [facility] Specific gravity Test strip (U) [Rel density]Ordered By: Hector Mann on 11-01-2024 Specific gravity (U) [Rel density] Specific gravity of Urine by Test strip 1.001-1.030 [facility] Troponin I High Sensitivityo n 11-01-2024 Troponin I High Sensitivity 62 Off scale high 0-20 [facility] Comment on above: Result Comment: Crit ical Result : Called to and read back by: ENRIQUE RICO at: 11/01/2024 23:00:13 by:[id number] The Troponin units of report have been changed to meet the Chest Pain Accreditation requirement, element EC5.M1l2. Troponin units are changed from pg/ml to ng/L. Also, the decimal is removed and results are in whole numbers.PERFORMED BY:[facility] [place], [place] [phone] MEDICAL DIRECTORCRISTHIAN HUFF M.D. Performed By: #### C BC, BNP, PT, CMP, MG, CK, HS TROP ####[facility] [place] [address] [facility] Troponin I.cardiac [Mass/vol ume] in Serum or Plasma by Detection limit <= 0.01 ng/Ordered By: Hector Mann on 11-01-2024 Troponin I.cardiac DL <= 0.01 ng/mL [Mass/Vol] Troponin I.cardiac [Mass/volume] in Serum or Plasma by Detection limit <= 0.01 ng/ Critically high 0-20 [facility] Comment on above: Critical Result : Ca lled to and read back by: ENRIQUE RICO at: 11/01/2024 23:00:13 by:[id number] Troponin units of report have been changed to meet the Chest Pain Accreditation requirement, element EC5.M1l2. Troponin units are changed from pg/ml to ng/L. Also, the decimal is removed and results are in whole numbers. Urea nitrogen [Mass/volume] in Serum or PlasmaOrdered By: Hector Mann on 11-01-2024 Urea nitrogen [Mass/Vol] Urea nitrogen [Mass/volume] in Serum or Plasma High 7-25 [facility] Urobilinogen Test strip (U) [Mass/Vol]Ordered By: Hector Mann on 11-01-2024 Urobilinogen (U) [Mass/Vol] Urobilinogen [Mass/volume] in Urine by Test strip Normal [facility] WBC Auto (Bld) [#/Vol]Ordere d By: Hector Mann on 11-01-2024 WBC (Bld) [#/Vol] Leukocytes [#/volume ] in Blood by Automated count 4.1-10.5 [facility] pH Test strip (U)Ordered By: Hector Mann on 11-01-2024 pH (U) pH of Urine by Test strip 5.0-9.0 [facility] Clinical Supporton Clinical Support [id number] Yoel Werner 1985 [facility] Provider Department Center 10/27/2024 [id number] SINHA [facility] Jus Heal Family History Problem Relation Age of Onset Pancreatic cancer Mother Diabetes Mother Liver disease Mother Hypertension Father Irritable bowel syndrome Father Stroke Father Coronary artery disease Brother 55 Lung cancer Paternal Grandmother Coronary artery disease Paternal Grandfather Family Status - Relation Status Age at Mother Father Alive Brother Paternal Grandmother Paternal Grandfather Reason for Visit and Comments: Psychiatric Evaluation [[id number]] [facility] Telephoneon 10-27-2024 Telephone [id number] Yoel Werner 1985 [facility] Provider Department Center 10/27/2024 TIANA BUSCH [facility] V[facility] LAB [facility] Family History Problem Relation Age of Onset Pancreatic cancer Mother Diabetes Mother Liver disease Mother Hypertension Father Irritable bowel syndrome Father Stroke Father Coronary artery disease Brother 55 Lung cancer Paternal Grandmother Coronary artery disease Paternal Grandfather Family Status - Relation Status Age at Mother Father Alive Brother Paternal Grandmother Paternal Grandfather [facility] 36on 10-20-2024 36 Patient confirmed ti me change of his appointments on 11/03/24. The start time was moved from 1pm to 8am. Patient will have Vascular US of LE, lab work, and then MURIEL. Patient instructed to check in at registration. Normal [facility] Orders Onlyon 09-24-2024 Orders Only [id number] Yoel Werner 1985 [facility] Provider Department Center 09/24/2024 LANCE SAWANT [facility] VAS LAB [facility] Family History Problem Relation Age of Onset Pancreatic cancer Mother Diabetes Mother Liver disease Mother Hypertension Father Irritable bowel syndrome Father Stroke Father Coronary artery disease Brother 55 Lung cancer Paternal Grandmother Coronary artery disease Paternal Grandfather Family Status - Relation Status Age at Mother Father Alive Brother Paternal Grandmother Paternal Grandfather Normal [facility] Basic Metabolic Panelon 08-21 Anion gap [Moles/Vol] 12.4 mmol/L Normal 6.0-15.0 [facility] e [facility] Comment on above: Performed By: #### B MP, CBC ####[place] [id number] [facility] Calcium [Mass/Vol] 8.6 mg/dL Normal 8.6-10.3 [facility] Comment on above: Performed By: #### B MP, CBC ####[address] [place] [id number] [facility] Chloride [Moles/Vol] 95 mmol/L Low 98-107 [facility] Comment on above: Performed By: #### B MP, CBC ####[address] [address] [facility] CO2 [Moles/Vol] 29.1 mmol/L Normal 21.0-31.0 [facility] Comment on above: Performed By: #### B MP, CBC ####[place] [id number] [facility] Creatinine [Mass/Vol] 5.04 mg/dL Significan t change up 0.70-1.30 [facility] Comment on above: Performed By: #### B MP, CBC ####[place] [id number] [facility] Creatinine Clr Calc Pharmacy 20.04 Normal [facility] Comment on above: Result Comment: PERF ORMED BY:[address] [place], [place] [phone] MEDICAL DIRECTORCRISTHIAN HUFF M.D. Performed By: #### B MP, CBC ####[place] [id number] [facility] Estimated GFR 14.096 mL/Min Normal [facility] Comment on above: Performed By: #### B MP, CBC ####[place] [id number] [facility] Glucose [Mass/Vol] 136 mg/dL High 70-100 [facility] Comment on above: Result Comment: [place] Glucose Reference Range is dependent on time and content of last meal. Glucose of more than 200 mg/dL in a nonstressed, ambulatory subject supports the diagnosis of Diabetes Mellitus. ADA recommended reference range Performed By: #### B MP, CBC ####[facility] [place] [id number] [facility] Potassium [Moles/Vol] 4.5 mmol/L Normal 3.5-5.1 [facility] Comment on above: Performed By: #### B MP, CBC ####[address] Sodium [Moles/Vol] 132 mmol/L Low 136-145 [facility] Comment on above: Performed By: #### B MP, CBC ####[place] [address] Urea nitrogen [Mass/Vol] 33 mg/dL High 7-25 [facility] Comment on above: Performed By: #### B MP, CBC ####[address] Basophils Auto (Bld) [#/Vol] Ordered By: Enrique Kirby on 09-17-2024 Basophils (Bld) [#/Vol] Automated basophil count 0.0-0.2 [facility] Basophils/100 WBC Auto (Bld) Ordered By: Enrique Kirby on 09-17-2024 Basophils/100 WBC (Bld) Automated basophil % . [facility] C reactive protein [Mass/vol ume] in Serum or PlasmaOrdered By: Crow Conte on 09-17-2024 CRP [Mass/Vol] C reactive protein [Mass/volume] in Serum or Plasma High 0.0-0.5 [facility] C-Reactive Proteinon 025 C-Reactive Protein 1.3 mg/dL High 0.0-0.5 [facility] Comment on above: Order Comment: Comme nt May add to existing blood work Result Comment: PERF ORMED BY:[address] [place], [place] [phone] MEDICAL DIRECTORCRISTHIAN HUFF M.D. Performed By: #### C RP ####[facility] [address] chest wo conon 09-17-2024 CT chest wo con Normal [facility] Calcium [Mass/volume] in Ser um or PlasmaOrdered By: Enrique Kirby on 09-17-2024 Calcium [Mass/Vol] Calcium [Mass/volume ] in Serum or Plasma 8.6-10.3 [facility] Carbon dioxide, total [Moles /volume] in Serum or PlasmaOrdered By: Enrique Kirby on 09-17-2024 CO2 [Moles/Vol] Carbon dioxide, tota l [Moles/volume] in Serum or Plasma 21.0-31.0 [facility] Chloride [Moles/volume] in S gretta or PlasmaOrdered By: Enrique Kirby on 09-17-2024 Chloride [Moles/Vol] Chloride [Moles/vol ume] in Serum or Plasma Low 98-107 [facility] Complete Blood Count Auto Di ffon 09-17-2024 Basophils (Bld) [#/Vol] 0.0 10*3/uL Normal 0.0-0.2 [facility] Comment on above: Result Comment: PERF ORMED BY:[address] [place], [place] [phone] MEDICAL DIRECTORCRISTHIAN HUFF M.D. Performed By: #### B MP, CBC ####[address] Basophils/100 WBC (Bld) 1.3 % Normal . T julianna [facility] Comment on above: Performed By: #### B MP, CBC ####[place] [id number] [facility] Eosinophils (Bld) [#/Vol] 0.1 10*3/uL Normal 0.0-0.45 [facility] Comment on above: Performed By: #### B MP, CBC ####[address] Eosinophils/100 WBC (Bld) 3.0 % Normal . [facility] Comment on above: Performed By: #### B MP, CBC ####[address] Erythrocyte distribution width (RBC) [Ratio] 14.3 % Normal 12.0-14.8 [facility] Comment on above: Performed By: #### B MP, CBC ####[address] Hematocrit (Bld) [Volume fraction] 29.6 % Low 38.8-50.0 [facility] Comment on above: Performed By: #### B MP, CBC ####[address] Hemoglobin (Bld) [Mass/Vol] 9.8 g/dL Low 13.0-17.0 [facility] Comment on above: Performed By: #### B MP, CBC ####[address] Lymphocytes (Bld) [#/Vol] 0.3 10*3/uL Low 1.00-4.8 [facility] Comment on above: Performed By: #### B MP, CBC ####[address] Lymphocytes/100 WBC (Bld) 15.3 % Normal . [facility] Comment on above: Performed By: #### B MP, CBC ####[address] MCH (RBC) [Entitic mass] 28.3 pg Normal 27.5-35.2 [facility] Comment on above: Performed By: #### B MP, CBC ####[address] MCV (RBC) [Entitic vol] 85.1 fL Normal 83.5-101 T he [facility] Comment on above: Performed By: #### B MP, CBC ####[address] Mean Corpuscular HGB Conc 33.2 g/dL Normal 32.5-35.6 [facility] Comment on above: Performed By: #### B MP, CBC ####[place] [id number] [facility] Monocytes (Bld) [#/Vol] 0.3 10*3/uL Normal 0.0-0.8 [facility] Comment on above: Performed By: #### B MP, CBC ####[place] [id number] [facility] Monocytes/100 WBC (Bld) 12.4 % Normal . [facility] Comment on above: Performed By: #### B MP, CBC ####[address] Neutrophils (Bld) [#/Vol] 1.5 10*3/uL Low 1.8-7.7 [facility] Comment on above: Performed By: #### B MP, CBC ####[place] [id number] [facility] Neutrophils/100 WBC (Bld) 68.0 % Normal . [facility] Comment on above: Performed By: #### B MP, CBC ####[place] [id number] [facility] NRBC% 0.3 /100{WBC} Normal 0-0.5 [facility] Comment on above: Performed By: #### B MP, CBC ####[place] [id number] [facility] Platelet mean volume (Bld) [Entitic vol] 7.6 fL Normal 6.6-10.1 [facility] Comment on above: Performed By: #### B MP, CBC ####[place] [id number] [facility] Platelets (Bld) [#/Vol] 113 10*3/uL Low 150-450 [facility] Comment on above: Performed By: #### B MP, CBC ####[place] [id number] [facility] RBC (Bld) [#/Vol] 3.47 10*6/uL Low 3.90-5.60 [facility] Comment on above: Performed By: #### B MP, CBC ####[facility] [id number] [place] [address] [facility] WBC (Bld) [#/Vol] 2.3 10*3/uL Low 4.1-10.5 [facility] Comment on above: Performed By: #### B MP, CBC ####[facility] [id number] [place] [address] [facility] Creatinine [Mass/volume] in Serum or PlasmaOrdered By: Enrique Kirby on 09-17-2024 Creatinine [Mass/Vol] Creatinine [Mass/v olume] in Serum or Plasma Invalid Interpretation Code 0.70-1.30 [facility] Comment on above: Delta: 6.71 on 09/16-451 Eosinophils Auto (Bld) [#/Vo l]Ordered By: Enrique Kirby on 09-17-2024 Eosinophils (Bld) [#/Vol] Automated eosinophil count 0.0-0.45 [facility] Eosinophils/100 WBC Auto (Bl d)Ordered By: Enrique Kirby on 09-17-2024 Eosinophils/100 WBC (Bld) Automated eosinophil % . [facility] Erythrocyte distribution wid th Auto (RBC) [Ratio]Ordered By: Enrique Kirby on 09-17-2024 Erythrocyte distribution width (RBC) [Ratio] Erythrocyte distribution width [Ratio] by Automated count 12.0-14.8 [facility] Glucose Glucometer (BldC) [M ass/Vol]Ordered By: Toney Riley on 09-17-2024 Glucose [Mass/Vol] Capillary blood gluc ose measurement by glucometer (mass/volume) [facility] Comment on above: Random Glucose Refer ence Range is dependent on time and content of last meal. Glucose of more than 200 mg/dL in a nonstressed, ambulatory subject supports the diagnosis of Diabetes Mellitus. Glucose Poct Glucometerson 0 09-17-2024 Glucose [Mass/Vol] 182 mg/dL Normal [facility] Comment on above: Result Comment: [place] [facility] Glucose Reference Range is dependent on time and content of last meal. Glucose of more than 200 mg/dL in a nonstressed, ambulatory subject supports the diagnosis of Diabetes Mellitus.PERFORMED BY:[address] [place], [place] [phone] MEDICAL DIRECTORCRISTHIAN HUFF M.D. Performed By: #### G LULS ####Point of Care testing, Glucose [Mass/Vol] 199 mg/dL Normal [facility] Comment on above: Result Comment: [place] [facility] Glucose Reference Range is dependent on time and content of last meal. Glucose of more than 200 mg/dL in a nonstressed, ambulatory subject supports the diagnosis of Diabetes Mellitus.PERFORMED BY:[address] HOFFEsaÓSCAR, [place] [phone] MEDICAL DIRECTORCRISTHIAN HUFF M.D. Performed By: #### G LULS ####Point of Care testing, Glucose [Mass/Vol] 165 mg/dL Normal [facility] Comment on above: Result Comment: [place] [facility] Glucose Reference Range is dependent on time and content of last meal. Glucose of more than 200 mg/dL in a nonstressed, ambulatory subject supports the diagnosis of Diabetes Mellitus.PERFORMED BY:[address] [place]uez[place], [place] [phone] MEDICAL DIRECTORCRISTHIAN HUFF M.D. Performed By: #### G LULS ####Point of Care testing, Commemt1 Glu2: Cleaned Meter Normal [facility] Comment on above: Result Comment: PERF ORMED BY:[address] [place], [place] [phone] MEDICAL DIRECTORCRISTHIAN HUFF M.D. Performed By: #### G LULS ####Point of Care testing, Glucose [Mass/Vol] 221 mg/dL Normal [facility] Comment on above: Result Comment: [place] [facility] Glucose Reference Range is dependent on time and content of last meal. Glucose of more than 200 mg/dL in a nonstressed, ambulatory subject supports the diagnosis of Diabetes Mellitus. Performed By: #### G LULS ####Point of Care testing, Commemt1 Glu2: Cleaned Meter Normal [facility] Comment on above: Result Comment: PERF ORMED BY:[place] [address] [address] [place], [place] [phone] MEDICAL DIRECTORCRISTHIAN HUFF M.D. Performed By: #### G LULS ####Point of Care testing, Glucose [Mass/Vol] 226 mg/dL Normal [facility] Comment on above: Result Comment: [place] [facility] Glucose Reference Range is dependent on time and content of last meal. Glucose of more than 200 mg/dL in a nonstressed, ambulatory subject supports the diagnosis of Diabetes Mellitus. Performed By: #### G LULS ####Point of Care testing, Commemt1 Normal [facility] Comment on above: Result Comment: Glu2 : WILL NOTIFY DR/RN Performed By: #### G LULS ####Point of Care testing, Commemt2 FOLLOW HYPOGLYCEMIC Normal [facility] Comment on above: Result Comment: PERF ORMED BY:[address] [place]UMBIA [place]ALL[place], [place] [phone] MEDICAL DIRECTORCRISTHIAN HUFF M.D. Performed By: #### G LULS ####Point of Care testing, Glucose [Mass/Vol] 30 mg/dL Off scale low [facility] Comment on above: Result Comment: [place] [facility] Glucose Reference Range is dependent on time and content of last meal. Glucose of more than 200 mg/dL in a nonstressed, ambulatory subject supports the diagnosis of Diabetes Mellitus. Performed By: #### G LULS ####Point of Care testing, Commemt1 Normal [facility] Comment on above: Result Comment: Glu2 : WILL NOTIFY DR/RN Performed By: #### G LULS ####Point of Care testing, Commemt2 Will Repeat Test Normal [facility] Comment on above: Result Comment: PERF ORMED BY:[address] [place], [place] [phone] MEDICAL DIRECTORCRISTHIAN HUFF M.D. Performed By: #### G LULS ####Point of Care testing, Glucose [Mass/Vol] 32 mg/dL Off scale low [facility] Comment on above: Result Comment: [place] [facility] Glucose Reference Range is dependent on time and content of last meal. Glucose of more than 200 mg/dL in a nonstressed, ambulatory subject supports the diagnosis of Diabetes Mellitus. Performed By: #### G LULS ####Point of Care testing, Glucose [Mass/volume] in Ser um or PlasmaOrdered By: Enrique Kirby on 09-17-2024 Glucose [Mass/Vol] Glucose [Mass/volume ] in Serum or Plasma High 70-100 [facility] Comment on above: ADA recommended refe rence rangeRandom Glucose Reference Range is dependent on time and content of last meal. Glucose of more than 200 mg/dL in a nonstressed, ambulatory subject supports the diagnosis of Diabetes Mellitus. Hematocrit Auto (Bld) [Volum e fraction]Ordered By: Enrique Kirby on 09-17-2024 Hematocrit (Bld) [Volume fraction] Hematocrit [Volume Fraction] of Blood by Automated count Low 38.8-50.0 [facility] Hemoglobin [Mass/volume] in BloodOrdered By: Enrique Kirby on 09-17-2024 Hemoglobin (Bld) [Mass/Vol] Hemoglobin [Mass/volume] in Blood Low 13.0-17.0 [facility] Leukocytes [#/volume] correc celena for nucleated erythrocytes in Blood by Automated counOrdered By: Enrique Kirby on 09-17-2024 WBC corrected for nucl RBC Auto (Bld) [#/Vol] Leukocytes [#/volume] corrected for nucleated erythrocytes in Blood by Automated coun Low 4.1-10.5 [facility] Lymphocytes Auto (Bld) [#/Vo l]Ordered By: Enrique Kirby on 09-17-2024 Lymphocytes (Bld) [#/Vol] Lymphocytes [#/volume] in Blood by Automated count Low 1.00-4.8 [facility] Lymphocytes/100 WBC Auto (Bl d)Ordered By: Enrique Kirby on 09-17-2024 Lymphocytes/100 WBC (Bld) Lymphocytes/100 leukocytes in Blood by Automated count . [facility] MCH Auto (RBC) [Entitic mass ]Ordered By: Enrique Kirby on 09-17-2024 MCH (RBC) [Entitic mass] MCH [Entitic mass] by Automated count 27.5-35.2 [facility] MCHC Auto (RBC) [Mass/Vol]Or dered By: Enrique Kirby on 09-17-2024 MCHC (RBC) [Mass/Vol] MCHC [Mass/volume] by Automated count 32.5-35.6 [facility] MCV Auto (RBC) [Entitic vol] Ordered By: Enrique Kirby on 09-17-2024 MCV (RBC) [Entitic vol] MCV [Entitic vol ume] by Automated count 83.5-101 [facility] Monocytes Auto (Bld) [#/Vol] Ordered By: Enrique Kirby on 09-17-2024 Monocytes (Bld) [#/Vol] Automated blood monocyte count 0.0-0.8 [facility] Monocytes/100 WBC Auto (Bld) Ordered By: Enrique Kirby on 09-17-2024 Monocytes/100 WBC (Bld) Automated monocyte % . [facility] Neutrophils Auto (Bld) [#/Vo l]Ordered By: Enrique Kirby on 09-17-2024 Neutrophils (Bld) [#/Vol] Neutrophils [#/volume] in Blood by Automated count Low 1.8-7.7 [facility] Neutrophils/100 WBC Auto (Bl d)Ordered By: Enrique Kirby on 09-17-2024 Neutrophils/100 WBC (Bld) Automated neutrophil % . [facility] No Panel InformationOrdered By: Enrique Kirby on 09-17-2024 Estimated GFR (CKD-EPI) 14.096 mL/Min [facility] Creatinine Clearance (Chem 20.04 [facility] 14.096 mL/Min [facility] 20.04 [facility] Bedside Glucose Comment Glu2: cleaned meter [facility] Glu2: cleaned meter [facility] Bedside Glucose #2 Comment Follow hypoglycemic [facility] Follow hypoglycemic [facility] Nucleated erythrocytes [Pres ence] in Blood by Automated countOrdered By: Enrique Kirby on 09-17-2024 Nucleated RBC Auto Ql (Bld) Nucleated erythrocytes [Presence] in Blood by Automated count 0-0.5 [facility] Platelet mean volume Auto (B ld) [Entitic vol]Ordered By: Enrique Kirby on 09-17-2024 Platelet mean volume (Bld) [Entitic vol] Platelet mean volume [Entitic volume] in Blood by Automated count 6.6-10.1 [facility] Platelets Auto (Bld) [#/Vol] Ordered By: Enrique Kirby on 09-17-2024 Platelets (Bld) [#/Vol] Platelets [#/vol ume] in Blood by Automated count Low 150-450 [facility] Potassium [Moles/volume] in Serum or PlasmaOrdered By: Enrique Kirby on 09-17-2024 Potassium [Moles/Vol] Potassium [Moles/v olume] in Serum or Plasma 3.5-5.1 [facility] RBC Auto (Bld) [#/Vol]Ordere d By: Enrique Kirby on 09-17-2024 RBC (Bld) [#/Vol] Erythrocytes [#/volu me] in Blood by Automated count Low 3.90-5.60 [facility] Serum or plasma anion gap de terminationOrdered By: Enrique Kirby on 09-17-2024 Anion gap [Moles/Vol] Serum or plasma an ion gap determination 6.0-15.0 [facility] Sodium [Moles/volume] in Ser um or PlasmaOrdered By: Enrique Kirby on 09-17-2024 Sodium [Moles/Vol] Sodium [Moles/volume ] in Serum or Plasma Low 136-145 [facility] Urea nitrogen [Mass/volume] in Serum or PlasmaOrdered By: Enrique Ninodar on 09-17-2024 Urea nitrogen [Mass/Vol] Urea nitrogen [Mass/volume] in Serum or Plasma High 7-25 [facility] WBC Auto (Bld) [#/Vol]Ordere d By: Enrique Kirby on 09-17-2024 WBC (Bld) [#/Vol] Leukocytes [#/volume ] in Blood by Automated count Low 4.1-10.5 [facility] 36on 09-16-2024 36 Spoke with patient, he verbalized understanding and would like to proceed with the MURIEL. Normal [facility] 36 ----- Message from Sujatha Lou MD sent at 09/16/2024 6:23 AM EST ----- His echo showed severe mitral regurgitation. He needs a MURIEL for better assessment. ----- Message ----- From: Interface, Radiology Results In Sent: 09/15/2024 4:42 PM EST To: Stephen Lou MD [facility] Automated epithelial cells c ount in urine sediment (number/area)Ordered By: Romain Roy on 09-16-2024 Epithelial cells Auto (Urine sed) [#/Area] Automated epithelial cells count in urine sediment (number/area) 0-2 [facility] Automated erythrocytes count in urine sediment (number/area)Ordered By: Romain Roy on 09-16-2024 RBC Auto (Urine sed) [#/Area] Erythrocytes [#/area] in Urine sediment by Automated count High 0-4 [facility] Automated leukocytes count i n urine sediment (number/area)Ordered By: Romain Roy on 09-16-2024 WBC Auto (Urine sed) [#/Area] Leukocytes [#/area] in Urine sediment by Automated count 0-4 [facility] Basic Metabolic Panelon 08-20 Anion gap [Moles/Vol] 15.0 mmol/L Normal 6.0-15.0 [facility] Comment on above: Performed By: #### C BC, BMP, MG ####[facility] [id number] [place] [id number] [facility] Calcium [Mass/Vol] 8.5 mg/dL Low 8.6-10.3 [facility] Comment on above: Performed By: #### C BC, BMP, MG ####[facility] [address] [place] [address] [facility] Chloride [Moles/Vol] 97 mmol/L Low 98-107 [facility] Comment on above: Performed By: #### C BC, BMP, MG ####[place] [id number] [facility] CO2 [Moles/Vol] 26.3 mmol/L Normal 21.0-31.0 [facility] Comment on above: Performed By: #### C BC, BMP, MG ####[place] [id number] [facility] Creatinine [Mass/Vol] 6.71 mg/dL High 0.70-1.30 [facility] Comment on above: Performed By: #### C BC, BMP, MG ####[address] Creatinine Clr Calc Pharmacy 15.05 Normal [facility] Comment on above: Performed By: #### C BC, BMP, MG ####[address] Estimated GFR 10.000 mL/Min Normal [facility] Comment on above: Performed By: #### C BC, BMP, MG ####[address] Glucose [Mass/Vol] 109 mg/dL High 70-100 [facility] Comment on above: Result Comment: [facility] Glucose Reference Range is dependent on time and content of last meal. Glucose of more than 200 mg/dL in a nonstressed, ambulatory subject supports the diagnosis of Diabetes Mellitus. ADA recommended reference range Performed By: #### C BC, BMP, MG ####[address] Potassium [Moles/Vol] 5.3 mmol/L High 3.5-5.1 [facility] Comment on above: Performed By: #### C BC, BMP, MG ####[address] Sodium [Moles/Vol] 133 mmol/L Low 136-145 [facility] Comment on above: Performed By: #### C BC, BMP, MG ####[address] Urea nitrogen [Mass/Vol] 52 mg/dL High 7-25 [facility] Comment on above: Performed By: #### C BC, BMP, MG ####[facility] [place] [address] [place] Basophils Auto (Bld) [#/Vol] Ordered By: Brigid Anderson on 09-16-2024 Basophils (Bld) [#/Vol] Automated basophil count 0.0-0.2 [facility] Basophils/100 WBC Auto (Bld) Ordered By: Brigid Anderson on 09-16-2024 Basophils/100 WBC (Bld) Automated basophil % . [facility] Bilirubin Test strip Ql (U)O rdered By: Romain Roy on 09-16-2024 Bilirubin Ql (U) Bilirubin.total [Presence] in Urine by Test strip Negative [facility] Calcium [Mass/volume] in Ser um or PlasmaOrdered By: Brigid Anderson on 09-16-2024 Calcium [Mass/Vol] Calcium [Mass/volume ] in Serum or Plasma Low 8.6-10.3 [facility] Carbon dioxide, total [Moles /volume] in Serum or PlasmaOrdered By: Brigid Anderson on 09-16-2024 CO2 [Moles/Vol] Carbon dioxide, tota l [Moles/volume] in Serum or Plasma 21.0-31.0 [facility] Chloride [Moles/volume] in S gretta or PlasmaOrdered By: Brigid Anderson on 09-16-2024 Chloride [Moles/Vol] Chloride [Moles/vol ume] in Serum or Plasma Low 98-107 [facility] Color Auto (U)Ordered By: Dat Roy on 09-16-2024 Color (U) Color of Urine by Auto Yellow Fi [facility] Complete Blood Count Auto Di ffon 09-16-2024 Basophils (Bld) [#/Vol] 0.1 10*3/uL Normal 0.0-0.2 [facility] Comment on above: Result Comment: PERF ORMED BY:[facility] [place], [place] [phone] MEDICAL DIRECTORMOHAMED M EL-FAKHARANY M.D. Performed By: #### C BC, BMP, MG ####[place] [id number] [facility] Basophils/100 WBC (Bld) 2.3 % Normal . [facility] Comment on above: Performed By: #### C BC, BMP, MG ####[address] Eosinophils (Bld) [#/Vol] 0.1 10*3/uL Normal 0.0-0.45 [facility] Comment on above: Performed By: #### C BC, BMP, MG ####[place] [id number] [facility] Eosinophils/100 WBC (Bld) 2.2 % Normal . [facility] Comment on above: Performed By: #### C BC, BMP, MG ####[address] Erythrocyte distribution width (RBC) [Ratio] 14.5 % Normal 12.0-14.8 [facility] Comment on above: Performed By: #### C BC, BMP, MG ####[address] Hematocrit (Bld) [Volume fraction] 25.8 % Low 38.8-50.0 [facility] Comment on above: Performed By: #### C BC, BMP, MG ####[address] Hemoglobin (Bld) [Mass/Vol] 8.7 g/dL Low 13.0-17.0 [facility] Comment on above: Performed By: #### C BC, BMP, MG ####[place] [id number] [facility] Lymphocytes (Bld) [#/Vol] 0.5 10*3/uL Low 1.00-4.8 [facility] Comment on above: Performed By: #### C BC, BMP, MG ####[place] [id number] [facility] Lymphocytes/100 WBC (Bld) 18.8 % Normal . [facility] Comment on above: Performed By: #### C BC, BMP, MG ####[address] MCH (RBC) [Entitic mass] 29.1 pg Normal 27.5-35.2 [facility] Comment on above: Performed By: #### C BC, BMP, MG ####[address] MCV (RBC) [Entitic vol] 86.3 fL Normal 83.5-101 [facility] Comment on above: Performed By: #### C BC, BMP, MG ####[address] Mean Corpuscular HGB Conc 33.7 g/dL Normal 32.5-35.6 [facility] Comment on above: Performed By: #### C BC, BMP, MG ####[address] Monocytes (Bld) [#/Vol] 0.4 10*3/uL Normal 0.0-0.8 [facility] Comment on above: Performed By: #### C BC, BMP, MG ####[address] Monocytes/100 WBC (Bld) 20.52 % High 0.00-20.00 [facility] Comment on above: Result Comment: For adults in ED, MDW > 20.0 may be associated with a higher risk of sepsis during the first 12 hrs of hospital admission Performed By: #### C BC, BMP, MG ####[address] Monocytes/100 WBC (Bld) 12.9 % Normal . [facility] Comment on above: Performed By: #### C BC, BMP, MG ####[address] Neutrophils (Bld) [#/Vol] 1.8 10*3/uL Normal 1.8-7.7 [facility] Comment on above: Performed By: #### C BC, BMP, MG ####[address] Neutrophils/100 WBC (Bld) 63.8 % Normal . [facility] Comment on above: Performed By: #### C BC, BMP, MG ####[place] [id number] [facility] NRBC% 0.1 /100{WBC} Normal 0-0.5 [facility] Comment on above: Performed By: #### C BC, BMP, MG ####[address] Platelet mean volume (Bld) [Entitic vol] 7.4 fL Normal 6.6-10.1 [facility] Comment on above: Performed By: #### C BC, BMP, MG ####[address] Platelets (Bld) [#/Vol] 108 10*3/uL Low 150-450 [facility] Comment on above: Performed By: #### C BC, BMP, MG ####[address] RBC (Bld) [#/Vol] 2.99 10*6/uL Low 3.90-5.60 [facility] Comment on above: Performed By: #### C BC, BMP, MG ####[address] WBC (Bld) [#/Vol] 2.9 10*3/uL Low 4.1-10.5 [facility] Comment on above: Performed By: #### C BC, BMP, MG ####[address] Creatinine [Mass/volume] in Serum or PlasmaOrdered By: Brigid Anderson on 09-16-2024 Creatinine [Mass/Vol] Creatinine [Mass/v olume] in Serum or Plasma High 0.70-1.30 [facility] Dipstick and Microscopicon 0 09-16-2024 Appearance (U) Cloudy Critically abnormal Clear [facility] Comment on above: Order Comment: Name Collection Type:: Clean-Voided Midstream Performed By: #### A DDONUAPLUS ####[address] [address] [facility] Bacteria,Urine None Seen Normal None Seen [facility] Comment on above: Order Comment: Name Collection Type:: Clean-Voided Midstream Performed By: #### A DDONUAPLUS ####[address] [address] [facility] Bilirubin,Urine Negative Normal Negative [facility] Comment on above: Order Comment: Name Collection Type:: Clean-Voided Midstream Performed By: #### A DDONUAPLUS ####[address] [address] [facility] Color (U) Yellow Normal Yellow [facility] Comment on above: Order Comment: Name Collection Type:: Clean-Voided Midstream Performed By: #### A DDONUAPLUS ####[address] [address] [facility] Glucose Ql (U) 250 mg/dL High Normal [facility] Comment on above: Order Comment: Name Collection Type:: Clean-Voided Midstream Performed By: #### A DDONUAPLUS ####[address] [address] [facility] Hyaline Casts,Urine 0 [LPF] Normal 0-8 [facility] Comment on above: Order Comment: Name Collection Type:: Clean-Voided Midstream Result Comment: PERF ORMED BY:[address] [place], [place] [phone] MEDICAL DIRECTORCRISTHIAN HUFF M.D. Performed By: #### A DDONUAPLUS ####[address] [address] [facility] Ketones Ql (U) Negative Normal Negative [facility] Comment on above: Order Comment: Name Collection Type:: Clean-Voided Midstream Performed By: #### A DDONUAPLUS ####[address] [place] [address] [facility] Leukocyte esterase Test strip Ql (U) Negative Normal Negative [facility] Comment on above: Order Comment: Name Collection Type:: Clean-Voided Midstream Performed By: #### A DDONUAPLUS ####[address] [address] [facility] Nitrite,Urine Negative Normal Negative [facility] Comment on above: Order Comment: Name Collection Type:: Clean-Voided Midstream Performed By: #### A DDONUAPLUS ####[address] [address] [facility] Occult Blood,Urine 1+ High Negative [facility] Comment on above: Order Comment: Name Collection Type:: Clean-Voided Midstream Result Comment: PERF ORMED BY:[address] [place], [place] [phone] MEDICAL DIRECTORCRISTHIAN HUFF M.D. Performed By: #### A DDONUAPLUS ####[address] [address] [facility] pH,Urine >= Normal 5.0-9.0 [facility] Comment on above: Order Comment: Name Collection Type:: Clean-Voided Midstream Performed By: #### A DDONUAPLUS ####[address] [address] [facility] Protein (U) [Mass/Vol] 300 mg/dL High Negative [facility] Comment on above: Order Comment: Name Collection Type:: Clean-Voided Midstream Performed By: #### A DDONUAPLUS ####[address] [address] [facility] RBC,Urine 10 [HPF] High 0-4 [facility] Comment on above: Order Comment: Name Collection Type:: Clean-Voided Midstream Performed By: #### A DDONUAPLUS ####[address] [address] [facility] Specificy [place],Urine 1.012 Normal 1.001-1.030 [facility] Comment on above: Order Comment: Name Collection Type:: Clean-Voided Midstream Performed By: #### A DDONUAPLUS ####[address] Squamous Epithelial Cell,Urine 1 [HPF] Normal 0-2 [facility] Comment on above: Order Comment: Name Collection Type:: Clean-Voided Midstream Performed By: #### A DDONUAPLUS ####[address] Urobilinogen,Urine Normal Normal Normal [facility] Comment on above: Order Comment: Name Collection Type:: Clean-Voided Midstream Performed By: #### A DDONUAPLUS ####[address] WBC,Urine 1 [HPF] Normal 0-4 [facility] Comment on above: Order Comment: Name Collection Type:: Clean-Voided Midstream Performed By: #### A DDONUAPLUS ####[address] Eosinophils Auto (Bld) [#/Vo l]Ordered By: Brigid Anderson on 09-16-2024 Eosinophils (Bld) [#/Vol] Automated eosinophil count 0.0-0.45 [facility] Eosinophils/100 WBC Auto (Bl d)Ordered By: Brigid Anderson on 09-16-2024 Eosinophils/100 WBC (Bld) Automated eosinophil % . [facility] Erythrocyte distribution wid th Auto (RBC) [Ratio]Ordered By: Brigid Anderson on 09-16-2024 Erythrocyte distribution width (RBC) [Ratio] Erythrocyte distribution width [Ratio] by Automated count 12.0-14.8 [facility] Glucose Glucometer (BldC) [M ass/Vol]Ordered By: Enrique Kirby on 09-16-2024 Glucose [Mass/Vol] Capillary blood gluc ose measurement by glucometer (mass/volume) [facility] Comment on above: Random Glucose Refer ence Range is dependent on time and content of last meal. Glucose of more than 200 mg/dL in a nonstressed, ambulatory subject supports the diagnosis of Diabetes Mellitus. Glucose Poct Glucometerson 0 09-16-2024 Commemt1 Glu2: Cleaned Meter Normal [facility] Comment on above: Result Comment: PERF ORMED BY:[place] [address] [address] [place], [place] [phone] MEDICAL DIRECTORCRISTHIAN HUFF M.D. Performed By: #### G LULS ####Point of Care testing, Glucose [Mass/Vol] 158 mg/dL Normal [facility] Comment on above: Result Comment: [place] om Glucose Reference Range is dependent on time and content of last meal. Glucose of more than 200 mg/dL in a nonstressed, ambulatory subject supports the diagnosis of Diabetes Mellitus. Performed By: #### G LULS ####Point of Care testing, Glucose [Mass/Vol] 151 mg/dL Normal [facility] Comment on above: Result Comment: [place] om Glucose Reference Range is dependent on time and content of last meal. Glucose of more than 200 mg/dL in a nonstressed, ambulatory subject supports the diagnosis of Diabetes Mellitus.PERFORMED BY:[address] [place]OFFEsaÓSC[place], [place] [phone] MEDICAL DIRECTORCRISTHIAN HUFF M.D. Performed By: #### G LULS ####Point of Care testing, Glucose [Mass/Vol] 151 mg/dL Normal [facility] Comment on above: Result Comment: [place] om Glucose Reference Range is dependent on time and content of last meal. Glucose of more than 200 mg/dL in a nonstressed, ambulatory subject supports the diagnosis of Diabetes Mellitus.PERFORMED BY:[place] [address] [address] [place], [place] [phone] MEDICAL DIRECTORCRISTHIAN HUFF M.D. Performed By: #### G LULS ####Point of Care testing, Glucose [Mass/Vol] 134 mg/dL Normal [facility] Comment on above: Result Comment: [place] om Glucose Reference Range is dependent on time and content of last meal. Glucose of more than 200 mg/dL in a nonstressed, ambulatory subject supports the diagnosis of Diabetes Mellitus.PERFORMED BY:[place] [address] [address] [place], [place] [phone] MEDICAL DIRECTORCRISTHIAN HUFF M.D. Performed By: #### G LULS ####Point of Care testing, Glucose [Mass/Vol] 361 mg/dL Normal [facility] Comment on above: Result Comment: [place] om Glucose Reference Range is dependent on time and content of last meal. Glucose of more than 200 mg/dL in a nonstressed, ambulatory subject supports the diagnosis of Diabetes Mellitus.PERFORMED BY:[address] [place], [place] [phone] MEDICAL DIRECTORCRISTHIAN HUFF M.D. Performed By: #### G LULS ####Point of Care testing, Glucose [Mass/Vol] 112 mg/dL Normal [facility] Comment on above: Result Comment: [place] Glucose Reference Range is dependent on time and content of last meal. Glucose of more than 200 mg/dL in a nonstressed, ambulatory subject supports the diagnosis of Diabetes Mellitus.PERFORMED BY:[address] [place], [place] [phone] MEDICAL DIRECTORCRISTHIAN HUFF M.D. Performed By: #### G LULS ####Point of Care testing, Commemt1 Normal [facility] Comment on above: Result Comment: Glu2 : WILL NOTIFY DR/TERE Performed By: #### G LULS ####Point of Care testing, Commemt2 Cleaned Meter Normal [facility] Comment on above: Result Comment: PERF ORMED BY:[address] [place], [place] [phone] MEDICAL DIRECTORCRISTHIAN HUFF M.D. Performed By: #### G LULS ####Point of Care testing, Glucose [Mass/Vol] 104 mg/dL Normal [facility] Comment on above: Result Comment: [place] om Glucose Reference Range is dependent on time and content of last meal. Glucose of more than 200 mg/dL in a nonstressed, ambulatory subject supports the diagnosis of Diabetes Mellitus. Performed By: #### G LULS ####Point of Care testing, Glucose [Mass/volume] in Ser um or PlasmaOrdered By: Brigid Anderson on 09-16-2024 Glucose [Mass/Vol] Glucose [Mass/volume ] in Serum or Plasma High 70-100 [facility] Comment on above: ADA recommended refe rence rangeRandom Glucose Reference Range is dependent on time and content of last meal. Glucose of more than 200 mg/dL in a nonstressed, ambulatory subject supports the diagnosis of Diabetes Mellitus. Hematocrit Auto (Bld) [Volum e fraction]Ordered By: Brigid Anderson on 09-16-2024 Hematocrit (Bld) [Volume fraction] Hematocrit [Volume Fraction] of Blood by Automated count Low 38.8-50.0 [facility] Hemoglobin [Mass/volume] in BloodOrdered By: Brigid Anderson on 09-16-2024 Hemoglobin (Bld) [Mass/Vol] Hemoglobin [Mass/volume] in Blood Low 13.0-17.0 [facility] Ketones Auto test strip (U) [Mass/Vol]Ordered By: Romain Roy on 09-16-2024 Ketones (U) [Mass/Vol] Urine ketones measurement by automated test strip (mass/volume) Negative [facility] Laboratory - UrinalysisOrder ed By: Romain Roy on 09-16-2024 Hyaline casts LM Ql (Urine sed) 0-8 [LPF] 0-8 [facility] Leukocytes [#/volume] correc celena for nucleated erythrocytes in Blood by Automated counOrdered By: Brigid Anderson on 09-16-2024 WBC corrected for nucl RBC Auto (Bld) [#/Vol] Leukocytes [#/volume] corrected for nucleated erythrocytes in Blood by Automated coun Low 4.1-10.5 [facility] Lymphocytes Auto (Bld) [#/Vo l]Ordered By: Brigid Anderson on 09-16-2024 Lymphocytes (Bld) [#/Vol] Lymphocytes [#/volume] in Blood by Automated count Low 1.00-4.8 [facility] Lymphocytes/100 WBC Auto (Bl d)Ordered By: Brigid Anderson on 09-16-2024 Lymphocytes/100 WBC (Bld) Lymphocytes/100 leukocytes in Blood by Automated count . [facility] MCH Auto (RBC) [Entitic mass ]Ordered By: Brigid Anderson on 09-16-2024 MCH (RBC) [Entitic mass] MCH [Entitic mass] by Automated count 27.5-35.2 [facility] MCHC Auto (RBC) [Mass/Vol]Or dered By: Brigid Anderson on 09-16-2024 MCHC (RBC) [Mass/Vol] MCHC [Mass/volume] by Automated count 32.5-35.6 [facility] MCV Auto (RBC) [Entitic vol] Ordered By: Brigid Anderson on 09-16-2024 MCV (RBC) [Entitic vol] MCV [Entitic vol ume] by Automated count 83.5-101 [facility] Magnesiumon 09-16-2024 Magnesium [Mass/Vol] 2.2 mg/dL Normal 1.9-2.7 [facility] Comment on above: Result Comment: PERF ORMED BY:[address] [place], [place] [phone] MEDICAL DIRECTORCRISTHIAN HUFF M.D. Performed By: #### C BC, BMP, MG ####[address] [address] [facility] Magnesium [Mass/volume] in S gretta or PlasmaOrdered By: Brigid Anderson on 09-16-2024 Magnesium [Mass/Vol] Magnesium [Mass/vol ume] in Serum or Plasma 1.9-2.7 [facility] Monocyte distribution width [Entitic volume] in Blood by AutomatedOrdered By: Brigid Anderson on 09-16-2024 Monocyte distribution width Auto (Bld) [Entitic vol] Monocyte distribution width [Entitic volume] in Blood by Automated High 0.00-20.00 [facility] Comment on above: For adults in ED, MD W > 20.0 may be associated with a higher risk of sepsis during the first 12 hrs of hospital admission Monocytes Auto (Bld) [#/Vol] Ordered By: Brigid Anderson on 09-16-2024 Monocytes (Bld) [#/Vol] Automated blood monocyte count 0.0-0.8 [facility] Monocytes/100 WBC Auto (Bld) Ordered By: Brigid Anderson on 09-16-2024 Monocytes/100 WBC (Bld) Automated monocyte % . [facility] Neutrophils Auto (Bld) [#/Vo l]Ordered By: Brigid Anderson on 09-16-2024 Neutrophils (Bld) [#/Vol] Neutrophils [#/volume] in Blood by Automated count 1.8-7.7 [facility] Neutrophils/100 WBC Auto (Bl d)Ordered By: Brigid Anderson on 09-16-2024 Neutrophils/100 WBC (Bld) Automated neutrophil % . [facility] Nitrite Test strip Ql (U)Ord ered By: Romain Roy on 09-16-2024 Nitrite Ql (U) Nitrite [Presence] i n Urine by Test strip Negative [facility] No Panel InformationOrdered By: Romain Roy on 09-16-2024 0-8 [LPF] 0-8 [facility] No Panel InformationOrdered By: Julio Allen on 09-16-2024 Bedside Glucose #2 Comment Cleaned meter [facility] Bedside Glucose Comment See comment [facility] Comment on above: Glu2: WILL NOTIFY DR /RN No Panel InformationOrdered By: Brigid Anderson on 09-16-2024 Estimated GFR (CKD-EPI) 10.000 mL/Min [facility] Creatinine Clearance (Chem 15.05 [facility] Nucleated erythrocytes [Pres ence] in Blood by Automated countOrdered By: Brigid Anderson on 09-16-2024 Nucleated RBC Auto Ql (Bld) Nucleated erythrocytes [Presence] in Blood by Automated count 0-0.5 [facility] Platelet mean volume Auto (B ld) [Entitic vol]Ordered By: Brigid Anderson on 09-16-2024 Platelet mean volume (Bld) [Entitic vol] Platelet mean volume [Entitic volume] in Blood by Automated count 6.6-10.1 [facility] Platelets Auto (Bld) [#/Vol] Ordered By: Brigid Anderson on 09-16-2024 Platelets (Bld) [#/Vol] Platelets [#/vol ume] in Blood by Automated count Low 150-450 [facility] Potassium [Moles/volume] in Serum or PlasmaOrdered By: Brigid Anderson on 09-16-2024 Potassium [Moles/Vol] Potassium [Moles/v olume] in Serum or Plasma High 3.5-5.1 [facility] Protein Auto test strip (U) [Mass/Vol]Ordered By: Romain Roy on 09-16-2024 Protein (U) [Mass/Vol] Urine protein measurement by automated test strip (mass/volume) High Negative [facility] RBC Auto (Bld) [#/Vol]Ordere d By: Brigid Anderson on 09-16-2024 RBC (Bld) [#/Vol] Erythrocytes [#/volu me] in Blood by Automated count Low 3.90-5.60 [facility] Serum or plasma anion gap de terminationOrdered By: Brigid Anderson on 09-16-2024 Anion gap [Moles/Vol] Serum or plasma an ion gap determination 6.0-15.0 [facility] Sodium [Moles/volume] in Ser um or PlasmaOrdered By: Brigid Anderson on 09-16-2024 Sodium [Moles/Vol] Sodium [Moles/volume ] in Serum or Plasma Low 136-145 [facility] Specific gravity Auto test s trip (U) [Rel density]Ordered By: Romain Roy on 09-16-2024 Specific gravity (U) [Rel density] Specific gravity of Urine by Automated test strip 1.001-1.030 [facility] Urea nitrogen [Mass/volume] in Serum or PlasmaOrdered By: Brigid Anderson on 09-16-2024 Urea nitrogen [Mass/Vol] Urea nitrogen [Mass/volume] in Serum or Plasma High 7-25 [facility] Urine bacteria detection by automated methodOrdered By: Romain Roy on 09-16-2024 Bacteria Auto Ql (U) Bacteria [Presence] in Urine by Automated None Seen [facility] Urine clarity by refractomet ry automatedOrdered By: Romain Roy on 09-16-2024 Clarity Refractometry automated (U) Urine clarity by refractometry automated Abnormal Clear [facility] Urine glucose measurement by automated test strip (mass/volume)Ordered By: Romain Roy on 09-16-2024 Glucose Auto test strip (U) [Mass/Vol] Urine glucose measurement by automated test strip (mass/volume) High Normal [facility] Urine hemoglobin detection b y automated test stripOrdered By: Romain Roy on 09-16-2024 Hemoglobin Auto test strip Ql (U) Urine hemoglobin detection by automated test strip High Negative [facility] Urine leukocyte esterase det ection by automated test stripOrdered By: Romain Roy on 09-16-2024 Leukocyte esterase Auto test strip Ql (U) Urine leukocyte esterase detection by automated test strip Negative [facility] Urobilinogen Auto test strip (U) [Mass/Vol]Ordered By: Romain Roy on 09-16-2024 Urobilinogen (U) [Mass/Vol] Urine urobilinogen measurement by automated test strip (mass/volume) Normal [facility] WBC Auto (Bld) [#/Vol]Ordere d By: Brigid Anderson on 09-16-2024 WBC (Bld) [#/Vol] Leukocytes [#/volume ] in Blood by Automated count Low 4.1-10.5 [facility] pH Auto test strip (U)Ordere d By: Romain Roy on 09-16-2024 pH (U) Urine pH measurement by automated test strip 5.0-9.0 [facility] Alanine aminotransferase [En zymatic activity/volume] in Serum or PlasmaOrdered By: Tenzin Ortiz on 09-15-2024 ALT [Catalytic activity/Vol] Alanine aminotransferase [Enzymatic activity/volume] in Serum or Plasma 7-52 [facility] Albumin [Mass/volume] in Ser um or Plasma by Bromocresol green (BCG) dye binding methoOrdered By: Tenzin Ortiz on 09-15-2024 Albumin BCG dye [Mass/Vol] Albumin [Mass/volume] in Serum or Plasma by Bromocresol green (BCG) dye binding metho 3.5-5.7 [facility] Alkaline phosphatase [Enzyma tic activity/volume] in Serum or PlasmaOrdered By: Tenzin Ortiz on 09-15-2024 ALP [Catalytic activity/Vol] Alkaline phosphatase [Enzymatic activity/volume] in Serum or Plasma 34-104 [facility] Aspartate aminotransferase [ Enzymatic activity/volume] in Serum or PlasmaOrdered By: Tenzin Ortiz on 09-15-2024 AST [Catalytic activity/Vol] Aspartate aminotransferase [Enzymatic activity/volume] in Serum or Plasma 13-39 [facility] Bilirubin.total [Mass/volume ] in Serum or PlasmaOrdered By: Tenzin Ortiz on 09-15-2024 Bilirubin [Mass/Vol] Bilirubin.total [Mass/volume] in Serum or Plasma 0.3-1.0 [facility] Blood Cultureon 09-15-2024 Bacteria identified Cx Nom (Bld) NO GROWTH 5 DAYS PERFORMED BY: [facility] [address] [place] [address] PATHOLOGIST INVESTIGATIONS DIRECTOR CRISTHIAN HUFF M.D. Normal [facility] Comment on above: Performed By: #### C MP, LACTIC, CUBLD ####[address] Bacteria identified Cx Nom (Bld) NO GROWTH 5 DAYS PERFORMED BY: [facility] [address] [place] [address] PATHOLOGIST INVESTIGATIONS DIRECTOR CRISTHIAN HUFF M.D. Normal [facility] Comment on above: Performed By: #### C MP, LACTIC, CUBLD ####[address] COVID CepheidOrdered By: Praful Roy on 09-15-2024 SARS-CoV-2 (COVID-19) Ab IA Ql COVID Cepheid Abnormal Negative [facility] Comment on above: This is a duplicate Cepheid Xpert Xpress CoV-2/Flu/RSV Plus RNA by RT-PCR result to be used for statistical tracking purpose only. SARS-CoV-2 (COVID-19) RNA HAO+probe Ql (Unsp spec) COVID Cepheid Abnormal Negative [facility] COVID-19 / Flu A/B / RSV PCR on 09-15-2024 SARS-CoV-2 (COVID-19) RNA HAO+probe Ql (Unsp spec) Normal [facility] Comment on above: Performed By: #### C OVID19 FLU RSV, CEPHEID POS ####[address] abdomen pelvis w conon CT abdomen pelvis w con Normal T [facility] Cepheid COVID PCR Positiveon 09-15-2024 SARS-CoV-2 (COVID-19) RNA HAO+probe Ql (Unsp spec) Positive Critically abnormal Negative [facility] Comment on above: Result Comment: This is a duplicate Cepheid Xpert Xpress CoV-2/Flu/RSV Plus RNA by RT-PCR result to be used for statistical tracking purpose only.PERFORMED BY:[address] [place], [place] [phone] MEDICAL DIRECTORCRISTHIAN HUFF M.D. Performed By: #### C OVID19 FLU RSV, CEPHEID POS ####[address] Complete Blood Count Auto Di ffon 09-15-2024 Basophils (Bld) [#/Vol] 0.0 10*3/uL Normal 0.0-0.2 [facility] Comment on above: Result Comment: PERF ORMED BY:[address] [place] [phone] MEDICAL DIRECTORCRISTHIAN HUFF M.D. Performed By: #### C BC ####[address] Basophils/100 WBC (Bld) 1.4 % Normal . [facility] Comment on above: Performed By: #### C BC ####[address] Eosinophils (Bld) [#/Vol] 0.1 10*3/uL Normal 0.0-0.45 [facility] Comment on above: Performed By: #### C BC ####[address] Eosinophils/100 WBC (Bld) 1.8 % Normal . [facility] Comment on above: Performed By: #### C BC ####[address] Erythrocyte distribution width (RBC) [Ratio] 14.0 % Normal 12.0-14.8 [facility] Comment on above: Performed By: #### C BC ####[address] Hematocrit (Bld) [Volume fraction] 28.2 % Low 38.8-50.0 [facility] Comment on above: Performed By: #### C BC ####[address] Hemoglobin (Bld) [Mass/Vol] 9.5 g/dL Low 13.0-17.0 [facility] Comment on above: Performed By: #### C BC ####[address] Lymphocytes (Bld) [#/Vol] 0.4 10*3/uL Low 1.00-4.8 [facility] Comment on above: Performed By: #### C BC ####[address] Lymphocytes/100 WBC (Bld) 11.0 % Normal . [facility] Comment on above: Performed By: #### C BC ####[address] MCH (RBC) [Entitic mass] 29.0 pg Normal 27.5-35.2 [facility] Comment on above: Performed By: #### C BC ####[address] MCV (RBC) [Entitic vol] 86.1 fL Normal 83.5-101 [facility] Comment on above: Performed By: #### C BC ####[address] Mean Corpuscular HGB Conc 33.6 g/dL Normal 32.5-35.6 [facility] Comment on above: Performed By: #### C BC ####[address] Monocytes (Bld) [#/Vol] 0.4 10*3/uL Normal 0.0-0.8 [facility] Comment on above: Performed By: #### C BC ####[place] [id number] [facility] Monocytes/100 WBC (Bld) 20.91 % High 0.00-20.00 [facility] Comment on above: Result Comment: For adults in ED, MDW > 20.0 may be associated with a higher risk of sepsis during the first 12 hrs of hospital admission Performed By: #### C BC ####[place] [id number] [facility] Monocytes/100 WBC (Bld) 10.9 % Normal . [facility] Comment on above: Performed By: #### C BC ####[address] Neutrophils (Bld) [#/Vol] 2.6 10*3/uL Normal 1.8-7.7 [facility] Comment on above: Performed By: #### C BC ####[place] [id number] [facility] Neutrophils/100 WBC (Bld) 74.9 % Normal . [facility] Comment on above: Performed By: #### C BC ####[place] [id number] [facility] NRBC% 0.1 /100{WBC} Normal 0-0.5 [facility] Comment on above: Performed By: #### C BC ####[place] [phone] [facility] Platelet mean volume (Bld) [Entitic vol] 7.5 fL Normal 6.6-10.1 [facility] Comment on above: Performed By: #### C BC ####[place] [id number] [facility] Platelets (Bld) [#/Vol] 113 10*3/uL Low 150-450 [facility] Comment on above: Performed By: #### C BC ####[place] [id number] [facility] RBC (Bld) [#/Vol] 3.28 10*6/uL Low 3.90-5.60 [facility] Comment on above: Performed By: #### C BC ####[address] WBC (Bld) [#/Vol] 3.5 10*3/uL Low 4.1-10.5 [facility] Comment on above: Performed By: #### C BC ####[address] Comprehensive Metabolic Pane dioni 09-15-2024 Albumin [Mass/Vol] 4.0 g/dL Normal 3.5-5.7 [facility] Comment on above: Performed By: #### C MP, LACTIC, CUBLD ####[address] Albumin/Globulin [Mass ratio] 1.4 {ratio} Normal [facility] Comment on above: Performed By: #### C MP, LACTIC, CUBLD ####[address] ALP [Catalytic activity/Vol] 55 U/L Normal 34-104 [facility] Comment on above: Performed By: #### C MP, LACTIC, CUBLD ####[address] ALT [Catalytic activity/Vol] 19 U/L Normal 7-52 [facility] Comment on above: Performed By: #### C MP, LACTIC, CUBLD ####[place] [id number] [facility] Anion gap [Moles/Vol] 16.5 mmol/L High 6.0-15.0 [facility] Comment on above: Performed By: #### C MP, LACTIC, CUBLD ####[address] AST [Catalytic activity/Vol] 26 U/L Normal 13-39 [facility] Comment on above: Performed By: #### C MP, LACTIC, CUBLD ####[address] Bilirubin [Mass/Vol] 0.6 mg/dL Normal 0.3-1.0 [facility] Comment on above: Performed By: #### C MP LACTIC, CUBLD ####[place] [id number] [facility] Calcium [Mass/Vol] 9.0 mg/dL Normal 8.6-10.3 [facility] Comment on above: Performed By: #### C ROBERTO LACTIC, CUBLD ####[place] [id number] [facility] Chloride [Moles/Vol] 96 mmol/L Low 98-107 [facility] Comment on above: Performed By: #### C ROBERTO LACTIC, CUBLD ####[address] CO2 [Moles/Vol] 25.2 mmol/L Normal 21.0-31.0 [facility] Comment on above: Performed By: #### C ROBERTO LACTIC, CUBLD ####[address] Creatinine [Mass/Vol] 6.29 mg/dL High 0.70-1.30 [facility] Comment on above: Performed By: #### C ROBERTO LACTIC, CUBLD ####[address] Creatinine Clr Calc Pharmacy 16.06 Normal [facility] Comment on above: Result Comment: PERF ORMED BY:[address] [place], [place] [phone] MEDICAL BONITA HUFF M.D. Performed By: #### C ROBERTO LACTIC, CUBLD ####[address] Estimated GFR 10.806 mL/Min Normal [facility] Comment on above: Performed By: #### C MP LACTIC, CUBLD ####[place] [phone] [facility] Globulin (S) [Mass/Vol] 2.9 g/dL Normal T [facility] Comment on above: Performed By: #### C ROBERTO LACTIC, CUBLD ####[place] [id number] [address] Glucose [Mass/Vol] 161 mg/dL High 70-100 [facility] Comment on above: Result Comment: [place] Glucose Reference Range is dependent on time and content of last meal. Glucose of more than 200 mg/dL in a nonstressed, ambulatory subject supports the diagnosis of Diabetes Mellitus. ADA recommended reference range Performed By: #### C ROBERTO LACTIC, CUBLD ####[place] [id number] [address] Potassium [Moles/Vol] 5.7 mmol/L High 3.5-5.1 [facility] Comment on above: Performed By: #### C MP LACTIC, CUBLD ####[place] [id number] Protein [Mass/Vol] 6.9 g/dL Normal 6.4-8.9 [facility] Comment on above: Performed By: #### C MP LACTIC, CUBLD ####[address] Sodium [Moles/Vol] 132 mmol/L Low 136-145 [facility] Comment on above: Performed By: #### C MP LACTIC, CUBLD ####[place] [id number] Urea nitrogen [Mass/Vol] 49 mg/dL High 7-25 [facility] Comment on above: Performed By: #### C MP LACTIC, CUBLD ####[place] [id number] ECG 12 lead ECGon 09-15-2024 ECG 12 lead ECG Normal [facility] ECG 12 lead ECG Normal [facility] Globulin Calc (S) [Mass/Vol] Ordered By: Tenzin Ortiz on 09-15-2024 Globulin (S) [Mass/Vol] Serum globulin measurement by calculation (mass/volume) [facility] [facility] Glucose Poct Glucometerson 0 1-28-2025 Glucose [Mass/Vol] 158 mg/dL Normal [facility] Comment on above: Result Comment: [facility] Glucose Reference Range is dependent on time and content of last meal. Glucose of more than 200 mg/dL in a nonstressed, ambulatory subject supports the diagnosis of Diabetes Mellitus.PERFORMED BY:[address] [place], [place] [phone] MEDICAL DIRECTORCRISTHIAN HUFF M.D. Performed By: #### G LULS ####Point of Care testing, Commemt1 Normal [facility] Comment on above: Result Comment: Glu2 : WILL NOTIFY DR/RN Performed By: #### G LULS ####Point of Care testing, Commemt2 Cleaned Meter Normal [facility] Comment on above: Result Comment: PERF ORMED BY:[address] [place], [place] [phone] MEDICAL DIRECTORCRISTHIAN HUFF M.D. Performed By: #### G LULS ####Point of Care testing, Glucose [Mass/Vol] 130 mg/dL Normal [facility] Comment on above: Result Comment: [facility] Glucose Reference Range is dependent on time and content of last meal. Glucose of more than 200 mg/dL in a nonstressed, ambulatory subject supports the diagnosis of Diabetes Mellitus. Performed By: #### G LULS ####Point of Care testing, Laboratory - Microbiology an d Antimicrobial susceptibilityOrdered By: Tenzin Ortiz on 09-15-2024 Bacteria identified Cx Nom (Bld) NO GROWTH 5 DAYS [facility] Bacteria identified Cx Nom (Bld) NO GROWTH 5 DAYS [facility] Bacteria identified Cx Nom (Bld) NO GROWTH 5 DAYS [facility] Bacteria identified Cx Nom (Bld) NO GROWTH 5 DAYS [facility] Lactate [Moles/volume] in Se rum or PlasmaOrdered By: Romain Roy on 09-15-2024 Lactate [Moles/Vol] Lactate [Moles/volum e] in Serum or Plasma 0.5-1.9 [facility] Comment on above: Lactic Acid referenc e range has been updated to 0.5 1.9 mmol/L and the critical range of 2.0 or greater. Lactic Acidon 09-15-2024 Lactate [Moles/Vol] 0.6 mmol/L Normal 0.5-1.9 [facility] Comment on above: Result Comment: Lact ic Acid reference range has been updated to 0.5 ? 1.9 mmol/L and the critical range of 2.0 or greater.PERFORMED BY:[address] [place]odríg[place]sa[place], [place] [phone] MEDICAL DIRECTORCRISTHIAN HUFF M.D. Performed By: #### L ACTIC ####[address] [address] [facility] Lactate [Moles/Vol] 0.6 mmol/L Normal 0.5-1.9 [facility] Comment on above: Result Comment: Lact ic Acid reference range has been updated to 0.5 ? 1.9 mmol/L and the critical range of 2.0 or greater.PERFORMED BY:[address] [place], [place] [phone] MEDICAL DIRECTORCRISTHIAN HUFF M.D. Performed By: #### C MP, LACTIC, CUBLD ####[address] [address] [facility] Protein [Mass/volume] in Ser um or PlasmaOrdered By: Tenzin Ortiz on 09-15-2024 Protein [Mass/Vol] Protein [Mass/volume ] in Serum or Plasma 6.4-8.9 [facility] Respiratory specimen influen za A virus, influenza B virus, respiratory syncytical virOrdered By: Romain Roy on 09-15-2024 SARS-CoV-2 (COVID-19) RNA HAO+probe Ql (Unsp spec) Respiratory specimen influenza A virus, influenza B virus, respiratory syncytical vir [facility] SARS-CoV-2 (COVID-19) RNA HAO+probe Ql (Unsp spec) Respiratory specimen influenza A virus, influenza B virus, respiratory syncytical vir [facility] Serum or plasma albumin/glob ulin mass ratioOrdered By: Tenzin Ortiz on 09-15-2024 Albumin/Globulin [Mass ratio] Serum or plasma albumin/globulin mass ratio [facility] X-ray reportOrdered By: Ambrosio Flynn on 09-15-2024 Study report [facility] [place] [address] [place] [address] XRay Report Signed Patient: Yoel Werner MR#: [id number] : 1985 Acct:[id number] Age/Sex: 39 / M ADM Date: 5 [...] Alec Flynn M.D.09/15/2024 10:19 PM Dictation Location: [facility] Transcribed By: [facility] 09/15/242218 Dictated By: Alec Flynn DO 09/15/242215 Signed By: 09/15/242218 [facility] Study report [facility] XR chest 2V*on 09-15-2024 XR chest 2V* Normal [facility] ABO/RHon 09-08-2024 ABO group Nom (Bld) A Normal [facility] Comment on above: Performed By: #### L [id number] #### [facility] TISSUE TYPING (HISTOTRAC) [address] RH TYPE IN BLOOD Positive Normal [facility] Comment on above: Performed By: #### L [id number] #### [facility] TISSUE TYPING (HISTOTRAC) [address] [place] [address] [place] Labon 09-08-2024 Lab [id number] Yoel Werner 1985 M Date Provider Department Center 09/08/2024 5725-[facility] OPD LAB RESOURCE [facility] OPD AR Medical C Family History Problem Relation Age of Onset Pancreatic cancer Mother Diabetes Mother Liver disease Mother Hypertension Father Irritable bowel syndrome Father Stroke Father Coronary artery disease Brother 55 Lung cancer Paternal Grandmother Coronary artery disease Paternal Grandfather Family Status - Relation Status Age at Mother Father Alive Brother Paternal Grandmother Paternal Grandfather Normal [facility] PANEL REACTIVE ANTIBODYon HOLD SPECIMEN Hold for add-ons. Normal [facility] Comment on above: Result Comment: Auto resulted. Performed By: #### L [id number] #### [facility] LAB [address] [place] [address] SINGLE ANTIGEN CLASS Ion AB SCREEN COMMENTS Potential specificit es added to the watch list. Normal [facility] Comment on above: Performed By: #### L [id number] #### [facility] TISSUE TYPING (HISTOTRAC) [address] [place] [address] [place] CLASS I LOW RISK AB A:24 Normal [facility] Comment on above: Performed By: #### L [id number] #### [facility] TISSUE TYPING (HISTOTRAC) [address] [place] [address] [place] CLASS I TESTED DATE [id number] Normal [facility] Comment on above: Performed By: #### L [id number] #### [facility] TISSUE TYPING (HISTOTRAC) [address] [place] [address] [place] SINGLE ANTIGEN CLASS 1 TEST METHOD Class I Single Antigen Normal [facility] Comment on above: Performed By: #### L [id number] #### [facility] TISSUE TYPING (HISTOTRAC) [address] [place] [address] [place] SINGLE ANTIGEN CLASS IIon AB SCREEN COMMENTS No Specificites Found Normal [facility] Comment on above: Performed By: #### L [id number] #### [facility] TISSUE TYPING (HISTOTRAC) [address] [place] [address] [place] CLASS II TESTED DATE [id number] [facility] Comment on above: Performed By: #### L [id number] #### [facility] TISSUE TYPING (HISTOTRAC) [address] [place] [address] [facility] CPRA 0 [facility] Comment on above: Performed By: #### L [id number] #### [facility] TISSUE TYPING (HISTOTRAC) [address] [place] [address] [facility] Performed By: #### L [id number] #### [facility] TISSUE TYPING (HISTOTRAC) [address] [place] [address] [facility] SIGNED BY Signed by Govind tovar [facility] VALERIANO(ASCP), Pressurised Container Filler Transplant Immunology [facility] Comment on above: Performed By: #### L [id number] #### [facility] TISSUE TYPING (HISTOTRAC) [address] [place] [address] [facility] Result Comment: Clas s I Antigen Microbeads Performed By: #### L [id number] #### [facility] TISSUE TYPING (HISTOTRAC) [address] [place] [address] [facility] SINGLE ANTIGEN CLASS 2 TEST METHOD Class II Single Antigen Normal [facility] Comment on above: Result Comment: Clas s II Antigen Microbeads Performed By: #### L [id number] #### [facility] TISSUE TYPING (HISTOTRAC) [address] [place] [address] [facility] Telemedicineon 09-01-2024 Telemedicine [id number] Yoel Werner 1985 M Date Provider Department Center 09/01/2024 [facility] Family History Problem Relation Age of Onset Pancreatic cancer Mother Diabetes Mother Liver disease Mother Hypertension Father Irritable bowel syndrome Father Stroke Father Coronary artery disease Brother 55 Lung cancer Paternal Grandmother Coronary artery disease Paternal Grandfather Family Status - Relation Status Age at Mother Father Brother Paternal Grandmother Paternal Grandfather Level of Service:[address] [place] OFFICE/OUTPATIENT NEW SF MDM 15 MINUTES (95) Normal [facility] Glucose Glucometer (BldC) [M ass/Vol]Ordered By: Law Cano on 08-29-2024 Glucose [Mass/Vol] Capillary blood gluc ose measurement by glucometer (mass/volume) [facility] Comment on above: Random Glucose Refer ence Range is dependent on time and content of last meal. Glucose of more than 200 mg/dL in a nonstressed, ambulatory subject supports the diagnosis of Diabetes Mellitus. Glucose Poct Glucometerson 0 08-29-2024 Glucose [Mass/Vol] 240 mg/dL Normal [facility] Comment on above: Result Comment: [place] [facility] Glucose Reference Range is dependent on time and content of last meal. Glucose of more than 200 mg/dL in a nonstressed, ambulatory subject supports the diagnosis of Diabetes Mellitus.PERFORMED BY:[place] [address] [address] [place], [place] [phone] MEDICAL DIRECTORCRISTHIAN HUFF M.D. Performed By: #### G LULS ####Point of Care testing, Glucose [Mass/Vol] 142 mg/dL Normal [facility] Comment on above: Result Comment: [place] [facility] Glucose Reference Range is dependent on time and content of last meal. Glucose of more than 200 mg/dL in a nonstressed, ambulatory subject supports the diagnosis of Diabetes Mellitus.PERFORMED BY:[address] [address] [address] [place] [phone] TRAN HUFF M.D. Performed By: #### G LULS ####Point of Care testing, Glucose [Mass/Vol] 137 mg/dL Normal [facility] Comment on above: Result Comment: [place] [facility] Glucose Reference Range is dependent on time and content of last meal. Glucose of more than 200 mg/dL in a nonstressed, ambulatory subject supports the diagnosis of Diabetes Mellitus.PERFORMED BY:[address] [address] [address] [address] [place] [phone] MEDICAL BONITA HUFF M.D. Performed By: #### G LULS ####Point of Care testing, Glucose [Mass/Vol] 118 mg/dL Normal [facility] Comment on above: Result Comment: [facility] Glucose Reference Range is dependent on time and content of last meal. Glucose of more than 200 mg/dL in a nonstressed, ambulatory subject supports the diagnosis of Diabetes Mellitus.PERFORMED BY:[address] [address] [address] [place], [place] [phone] MEDICAL DIRECTORCRISTHIAN HUFF M.D. Performed By: #### G LULS ####Point of Care testing, Glucose [Mass/Vol] 55 mg/dL Off scale low [facility] Comment on above: Result Comment: [facility] Glucose Reference Range is dependent on time and content of last meal. Glucose of more than 200 mg/dL in a nonstressed, ambulatory subject supports the diagnosis of Diabetes Mellitus.PERFORMED BY:[place] [address] [address] [place], [place] [phone] MEDICAL DIRECTORCRISTHIAN HUFF M.D. Performed By: #### G LULS ####Point of Care testing, Glucose [Mass/Vol] 139 mg/dL Normal [facility] Comment on above: Result Comment: [facility] Glucose Reference Range is dependent on time and content of last meal. Glucose of more than 200 mg/dL in a nonstressed, ambulatory subject supports the diagnosis of Diabetes Mellitus.PERFORMED BY:[address] [address] [address] [place], [place] [phone] MEDICAL DIRECTORCRISTHIAN HUFF M.D. Performed By: #### G LULS ####Point of Care testing, Glucose [Mass/Vol] 64 mg/dL Normal [facility] Comment on above: Result Comment: [facility] Glucose Reference Range is dependent on time and content of last meal. Glucose of more than 200 mg/dL in a nonstressed, ambulatory subject supports the diagnosis of Diabetes Mellitus.PERFORMED BY:[address] [place] [address] [address] [place], [place] [phone] MEDICAL DIRECTORMOMARIA Villeda EL-FAKHARANY M.D. Performed By: #### G LULS ####Point of Care testing, Glucose [Mass/Vol] 92 mg/dL Normal [facility] Comment on above: Result Comment: [place] [facility] Glucose Reference Range is dependent on time and content of last meal. Glucose of more than 200 mg/dL in a nonstressed, ambulatory subject supports the diagnosis of Diabetes Mellitus.PERFORMED BY:[place] [address] [address] [place], [place] [phone] MEDICAL DIRECTORCRISTHIAN HUFF M.D. Performed By: #### G LULS ####Point of Care testing, Commemt1 Normal [facility] Comment on above: Result Comment: Glu2 : WILL NOTIFY DR/VANESSAERFORMED BY:[place] [address] [address] [place], [place] [phone] MEDICAL DIRECTORCRISTHIAN HUFF M.D. Performed By: #### G LULS ####Point of Care testing, Glucose [Mass/Vol] 47 mg/dL Off scale low [facility] Comment on above: Result Comment: [place] [facility] Glucose Reference Range is dependent on time and content of last meal. Glucose of more than 200 mg/dL in a nonstressed, ambulatory subject supports the diagnosis of Diabetes Mellitus. Performed By: #### G LULS ####Point of Care testing, Glucose [Mass/Vol] 382 mg/dL Normal [facility] Comment on above: Result Comment: [facility] [place] [facility] Glucose Reference Range is dependent on time and content of last meal. Glucose of more than 200 mg/dL in a nonstressed, ambulatory subject supports the diagnosis of Diabetes Mellitus.PERFORMED BY:[place] [address] [address] [place], [place] [phone] MEDICAL DIRECTORCRISTHIAN HUFF M.D. Performed By: #### G LULS ####Point of Care testing, Commemt1 Glu2: Cleaned Meter Normal [facility] Comment on above: Result Comment: PERF ORMED BY:[address] [address] [address], [place] [phone] MEDICAL DIRECTORCRISTHIAN HUFF M.D. Performed By: #### G LULS ####Point of Care testing, Glucose [Mass/Vol] 103 mg/dL Normal [facility] Comment on above: Result Comment: [place] [facility] Glucose Reference Range is dependent on time and content of last meal. Glucose of more than 200 mg/dL in a nonstressed, ambulatory subject supports the diagnosis of Diabetes Mellitus. Performed By: #### G LULS ####Point of Care testing, Commemt1 Glu2: Cleaned Meter Normal [facility] Comment on above: Result Comment: PERF ORMED BY:[facility] [place], [place] [phone] MEDICAL DIRECTORCRISTHIAN HUFF M.D. Performed By: #### G LULS ####Point of Care testing, Glucose [Mass/Vol] 110 mg/dL Normal [facility] Comment on above: Result Comment: [place] [facility] Glucose Reference Range is dependent on time and content of last meal. Glucose of more than 200 mg/dL in a nonstressed, ambulatory subject supports the diagnosis of Diabetes Mellitus. Performed By: #### G LULS ####Point of Care testing, No Panel InformationOrdered By: Law Cano on 08-29-2024 Bedside Glucose Comment See comment [facility] Comment on above: Glu2: WILL NOTIFY DR /RN See comment [facility] Blood Cultureon 08-28-2024 Bacteria identified Cx Nom (Bld) NO GROWTH 5 DAYS PERFORMED BY: [facility] [address] [place] [address] PATHOLOGIST INVESTIGATIONS DIRECTOR CRISTHIAN HUFF M.D. Normal [facility] Comment on above: Performed By: #### C UBLD, LACTIC ####[facility] [address] [place] [address] [facility] COVID Cepheid NegativeOrdere d By: Romain Roy on 08-28-2024 SARS-CoV-2 (COVID-19) Ab IA Ql COVID Cepheid Negative [facility] Comment on above: This is a duplicate Cepheid Xpert Xpress CoV-2/Flu/RSV Plus RNA by RT-PCR result to be used for statistical tracking purpose only. SARS-CoV-2 (COVID-19) RNA HAO+probe Ql (Unsp spec) COVID Cepheid Negative [facility] COVID-19 / Flu A/B / RSV PCR on 08-28-2024 SARS-CoV-2 (COVID-19) RNA HAO+probe Ql (Unsp spec) Normal [facility] Comment on above: Performed By: #### C OVID19 FLU RSV, CEPHEID NEG ####[address] [address] [facility] Cepheid COVID PCR Negativeon 08-28-2024 SARS-CoV-2 (COVID-19) RNA HAO+probe Ql (Unsp spec) Negative Normal Negative [facility] Comment on above: Result Comment: This is a duplicate Cepheid Xpert Xpress CoV-2/Flu/RSV Plus RNA by RT-PCR result to be used for statistical tracking purpose only.PERFORMED BY:[address] [place], [place] [phone] MEDICAL DIRECTORCRISTHIAN HUFF M.D. Performed By: #### C OVID19 FLU RSV, CEPHEID NEG ####[address] [address] [facility] Glucose Poct Glucometerson 0 08-28-2024 Glucose [Mass/Vol] 309 mg/dL Normal [facility] Comment on above: Result Comment: [facility] Glucose Reference Range is dependent on time and content of last meal. Glucose of more than 200 mg/dL in a nonstressed, ambulatory subject supports the diagnosis of Diabetes Mellitus.PERFORMED BY:[address] [place]UND[place]US[place], [place] [phone] MEDICAL DIRECTORCRISTHIAN HUFF M.D. Performed By: #### G LULS ####Point of Care testing, Glucose [Mass/Vol] 375 mg/dL Normal [facility] Comment on above: Result Comment: [place] [facility] Glucose Reference Range is dependent on time and content of last meal. Glucose of more than 200 mg/dL in a nonstressed, ambulatory subject supports the diagnosis of Diabetes Mellitus.PERFORMED BY:[address]uezEsa[place]SCARGREEN[place], [place] [phone] MEDICAL DIRECTORCRISTHIAN HUFF M.D. Performed By: #### G LUBOUBACAR ####Point of Care testing, Laboratory - Microbiology an d Antimicrobial susceptibilityOrdered By: Romain Roy on 08-28-2024 Bacteria identified Cx Nom (Bld) NO GROWTH 5 DAYS [facility] Lactate [Moles/volume] in Se rum or PlasmaOrdered By: Romain Roy on 08-28-2024 Lactate [Moles/Vol] Lactate [Moles/volum e] in Serum or Plasma 0.5-2.2 [facility] Lactic Acidon 08-28-2024 Lactate [Moles/Vol] 0.6 mmol/L Normal 0.5-2.2 [facility] Comment on above: Result Comment: PERF ORMED BY:[address] [place], [place] [phone] MEDICAL DIRECTORCRISTHIAN HUFF M.D. Performed By: #### C UBLD, LACTIC ####[facility] [address] [place] [address] [facility] No Panel InformationOrdered By: Romain Roy on 08-28-2024 NO GROWTH 5 DAYS [facility] Respiratory specimen influen za A virus, influenza B virus, respiratory syncytical virOrdered By: Romain Roy on 08-28-2024 SARS-CoV-2 (COVID-19) RNA HAO+probe Ql (Unsp spec) Respiratory specimen influenza A virus, influenza B virus, respiratory syncytical vir [facility] Alanine aminotransferase [En zymatic activity/volume] in Serum or PlasmaOrdered By: Romain Roy on 08-27-2024 ALT [Catalytic activity/Vol] Alanine aminotransferase [Enzymatic activity/volume] in Serum or Plasma [facility] Albumin [Mass/volume] in Ser um or Plasma by Bromocresol green (BCG) dye binding methoOrdered By: Romain Roy on 08-27-2024 Albumin BCG dye [Mass/Vol] Albumin [Mass/volume] in Serum or Plasma by Bromocresol green (BCG) dye binding metho 3.5-5.7 [facility] Alkaline phosphatase [Enzyma tic activity/volume] in Serum or PlasmaOrdered By: Romain Roy on 08-27-2024 ALP [Catalytic activity/Vol] Alkaline phosphatase [Enzymatic activity/volume] in Serum or Plasma 34-104 [facility] Aspartate aminotransferase [ Enzymatic activity/volume] in Serum or PlasmaOrdered By: Romain Roy on 08-27-2024 AST [Catalytic activity/Vol] Aspartate aminotransferase [Enzymatic activity/volume] in Serum or Plasma 13-39 [facility] B-Type Natriuretic Peptideon 08-27-2024 Natriuretic peptide B (Bld) [Mass/Vol] 4066.0 pg/mL High 5-100 [facility] Comment on above: Result Comment: PERF ORMED BY:[facility] [place], [place] [phone] MEDICAL DIRECTORMOMARIA HUFF M.D. Performed By: #### C BC, CMP, BNP, HS TROP ####[facility] [place] [address] [facility] Basophils Auto (Bld) [#/Vol] Ordered By: Romain Roy on 08-27-2024 Basophils (Bld) [#/Vol] Automated basophil count 0.0-0.2 [facility] Basophils/100 WBC Auto (Bld) Ordered By: Romain Roy on 08-27-2024 Basophils/100 WBC (Bld) Automated basophil % . [facility] Bilirubin.total [Mass/volume ] in Serum or PlasmaOrdered By: Romain Roy on 08-27-2024 Bilirubin [Mass/Vol] Bilirubin.total [Mass/volume] in Serum or Plasma 0.3-1.0 [facility] Blood Cultureon 08-27-2024 Bacteria identified Cx Nom (Bld) L FA NO GROWTH 5 DAYS PERFORMED BY: [facility] [address] [place] [address] PATHOLOGIST INVESTIGATIONS DIRECTOR CRISTHIAN HUFF M.D. Normal [facility] Comment on above: Performed By: #### C UBLD, LACTIC ####[address] [place] [address] [facility] Calcium [Mass/volume] in Ser um or PlasmaOrdered By: Romain Roy on 08-27-2024 Calcium [Mass/Vol] Calcium [Mass/volume ] in Serum or Plasma 8.6-10.3 [facility] Carbon dioxide, total [Moles /volume] in Serum or PlasmaOrdered By: Romain Roy on 08-27-2024 CO2 [Moles/Vol] Carbon dioxide, tota l [Moles/volume] in Serum or Plasma 21.0-31.0 [facility] Chloride [Moles/volume] in S gretta or PlasmaOrdered By: Romain Roy on 08-27-2024 Chloride [Moles/Vol] Chloride [Moles/vol ume] in Serum or Plasma Low 98-107 [facility] Complete Blood Count Auto Di ffon 08-27-2024 Basophils (Bld) [#/Vol] 0.1 10*3/uL Normal 0.0-0.2 [facility] Comment on above: Result Comment: PERF ORMED BY:[place] [address] [address] [place], [place] [phone] MEDICAL DIRECTORCRISTHIAN HUFF M.D. Performed By: #### C BC, CMP, BNP, HS TROP ####[address] [place] [address] [place] Basophils/100 WBC (Bld) 1.2 % Normal . T julianna [facility] Comment on above: Performed By: #### C BC, CMP, BNP, HS TROP ####[address] [place] [address] [facility] Eosinophils (Bld) [#/Vol] 0.2 10*3/uL Normal 0.0-0.45 [facility] Comment on above: Performed By: #### C BC, CMP, BNP, HS TROP ####[address] Eosinophils/100 WBC (Bld) 3.1 % Normal . [facility] Comment on above: Performed By: #### C BC, CMP, BNP, HS TROP ####[address] Erythrocyte distribution width (RBC) [Ratio] 14.0 % Normal 12.0-14.8 [facility] Comment on above: Performed By: #### C BC, CMP, BNP, HS TROP ####[address] Hematocrit (Bld) [Volume fraction] 31.8 % Low 38.8-50.0 [facility] Comment on above: Performed By: #### C BC, CMP, BNP, HS TROP ####[address] Hemoglobin (Bld) [Mass/Vol] 10.9 g/dL Low 13.0-17.0 [facility] Comment on above: Performed By: #### C BC, CMP, BNP, HS TROP ####[address] Lymphocytes (Bld) [#/Vol] 1.2 10*3/uL Normal 1.00-4.8 [facility] Comment on above: Performed By: #### C BC, CMP, BNP, HS TROP ####[address] Lymphocytes/100 WBC (Bld) 18.3 % Normal . [facility] Comment on above: Performed By: #### C BC, CMP, BNP, HS TROP ####[address] MCH (RBC) [Entitic mass] 29.1 pg Normal 27.5-35.2 [facility] Comment on above: Performed By: #### C BC, CMP, BNP, HS TROP ####[address] MCV (RBC) [Entitic vol] 84.9 fL Normal 83.5-101 [facility] Comment on above: Performed By: #### C BC, CMP, BNP, HS TROP ####[address] Mean Corpuscular HGB Conc 34.2 g/dL Normal 32.5-35.6 [facility] Comment on above: Performed By: #### C BC, CMP, BNP, HS TROP ####[address] Monocytes (Bld) [#/Vol] 0.5 10*3/uL Normal 0.0-0.8 [facility] Comment on above: Performed By: #### C BC, CMP, BNP, HS TROP ####[address] Monocytes/100 WBC (Bld) 18.41 % Normal 0.00-20.00 [facility] Comment on above: Performed By: #### C BC, CMP, BNP, HS TROP ####[address] Monocytes/100 WBC (Bld) 7.4 % Normal . [facility] Comment on above: Performed By: #### C BC, CMP, BNP, HS TROP ####[address] Neutrophils (Bld) [#/Vol] 4.5 10*3/uL Normal 1.8-7.7 [facility] Comment on above: Performed By: #### C BC, CMP, BNP, HS TROP ####[address] Neutrophils/100 WBC (Bld) 70.0 % Normal . [facility] Comment on above: Performed By: #### C BC, CMP, BNP, HS TROP ####[address] NRBC% 0.0 /100{WBC} Normal 0-0.5 [facility] Comment on above: Performed By: #### C BC, CMP, BNP, HS TROP ####[address] Platelet mean volume (Bld) [Entitic vol] 7.9 fL Normal 6.6-10.1 [facility] Comment on above: Performed By: #### C BC, CMP, BNP, HS TROP ####[place] [id number] [facility] Platelets (Bld) [#/Vol] 151 10*3/uL Normal 150-450 [facility] Comment on above: Performed By: #### C BC, CMP, BNP, HS TROP ####[address] RBC (Bld) [#/Vol] 3.74 10*6/uL Low 3.90-5.60 [facility] Comment on above: Performed By: #### C BC, CMP, BNP, HS TROP ####[address] WBC (Bld) [#/Vol] 6.4 10*3/uL Normal 4.1-10.5 [facility] Comment on above: Performed By: #### C BC, CMP, BNP, HS TROP ####[address] Comprehensive Metabolic Pane dioni 08-27-2024 Albumin [Mass/Vol] 3.7 g/dL Normal 3.5-5.7 [facility] Comment on above: Performed By: #### C BC, CMP, BNP, HS TROP ####[address] Albumin/Globulin [Mass ratio] 1.3 {ratio} Normal [facility] Comment on above: Performed By: #### C BC, CMP, BNP, HS TROP ####[address] ALP [Catalytic activity/Vol] 60 U/L Normal 34-104 [facility] Comment on above: Performed By: #### C BC, CMP, BNP, HS TROP ####[place] [id number] [place] [phone] [facility] ALT [Catalytic activity/Vol] 12 U/L Normal 7-52 [facility] Comment on above: Performed By: #### C BC, CMP, BNP, HS TROP ####[place] [id number] [place] [phone] [facility] Anion gap [Moles/Vol] 16.1 mmol/L High 6.0-15.0 Th e [facility] Comment on above: Performed By: #### C BC, CMP, BNP, HS TROP ####[place] [id number] [facility] AST [Catalytic activity/Vol] 14 U/L Normal 13-39 [facility] Comment on above: Performed By: #### C BC, CMP, BNP, HS TROP ####[place] [id number] [facility] Bilirubin [Mass/Vol] 0.7 mg/dL Normal 0.3-1.0 [facility] Comment on above: Performed By: #### C BC, CMP, BNP, HS TROP ####[place] [id number] [facility] Calcium [Mass/Vol] 8.9 mg/dL Normal 8.6-10.3 [facility] Comment on above: Performed By: #### C BC, CMP, BNP, HS TROP ####[place] [id number] [facility] Chloride [Moles/Vol] 93 mmol/L Low 98-107 [facility] Comment on above: Performed By: #### C BC, CMP, BNP, HS TROP ####[place] [phone] [facility] CO2 [Moles/Vol] 26.3 mmol/L Normal 21.0-31.0 [facility] Comment on above: Performed By: #### C BC, CMP, BNP, HS TROP ####[place] [phone] [facility] Creatinine [Mass/Vol] 5.91 mg/dL High 0.70-1.30 [facility] Comment on above: Performed By: #### C BC, CMP, BNP, HS TROP ####[place] [phone] [facility] Creatinine Clr Calc Pharmacy 18.30 Normal [facility] Comment on above: Result Comment: PERF ORMED BY:[address] [place] [phone] MEDICAL DIRECTORCRISTHIAN HUFF M.D. Performed By: #### C BC, CMP, BNP, HS TROP ####[place] [phone] [facility] Estimated GFR 11.645 mL/Min Normal [facility] Comment on above: Performed By: #### C BC, CMP, BNP, HS TROP ####[place] [phone] [facility] Globulin (S) [Mass/Vol] 2.9 g/dL Normal T he [facility] Comment on above: Performed By: #### C BC, CMP, BNP, HS TROP ####[place] [phone] [facility] Glucose [Mass/Vol] 379 mg/dL High 70-100 [facility] Comment on above: Result Comment: [place] Glucose Reference Range is dependent on time and content of last meal. Glucose of more than 200 mg/dL in a nonstressed, ambulatory subject supports the diagnosis of Diabetes Mellitus. ADA recommended reference range Performed By: #### C BC, CMP, BNP, HS TROP ####[place] [phone] [facility] Potassium [Moles/Vol] 4.4 mmol/L Normal 3.5-5.1 [facility] Comment on above: Performed By: #### C BC, CMP, BNP, HS TROP ####[place] [phone] [facility] Protein [Mass/Vol] 6.6 g/dL Normal 6.4-8.9 [facility] Comment on above: Performed By: #### C BC, CMP, BNP, HS TROP ####[place] [phone] [place] [phone] [facility] Sodium [Moles/Vol] 131 mmol/L Low 136-145 [facility] Comment on above: Performed By: #### C BC, CMP, BNP, HS TROP ####[facility] [id number] [place] [address] [facility] Urea nitrogen [Mass/Vol] 48 mg/dL High 7-25 [facility] Comment on above: Performed By: #### C BC, CMP, BNP, HS TROP ####[facility] [address] [place] [address] [facility] Creatinine [Mass/volume] in Serum or PlasmaOrdered By: Romain Roy on 08-27-2024 Creatinine [Mass/Vol] Creatinine [Mass/v olume] in Serum or Plasma High 0.70-1.30 [facility] ECG 12 lead ECGon 08-27-2024 ECG 12 lead ECG Normal [facility] Eosinophils Auto (Bld) [#/Vo l]Ordered By: Romain Roy on 08-27-2024 Eosinophils (Bld) [#/Vol] Automated eosinophil count 0.0-0.45 [facility] Eosinophils/100 WBC Auto (Bl d)Ordered By: Romain Roy on 08-27-2024 Eosinophils/100 WBC (Bld) Automated eosinophil % . [facility] Erythrocyte distribution wid th Auto (RBC) [Ratio]Ordered By: Romain Roy on 08-27-2024 Erythrocyte distribution width (RBC) [Ratio] Erythrocyte distribution width [Ratio] by Automated count 12.0-14.8 [facility] Globulin Calc (S) [Mass/Vol] Ordered By: Romain Roy on 08-27-2024 Globulin (S) [Mass/Vol] Serum globulin measurement by calculation (mass/volume) [facility] Glucose [Mass/volume] in Ser um or PlasmaOrdered By: Romain Roy on 08-27-2024 Glucose [Mass/Vol] Glucose [Mass/volume ] in Serum or Plasma High 70-100 [facility] Comment on above: ADA recommended refe rence rangeRandom Glucose Reference Range is dependent on time and content of last meal. Glucose of more than 200 mg/dL in a nonstressed, ambulatory subject supports the diagnosis of Diabetes Mellitus. Hematocrit Auto (Bld) [Volum e fraction]Ordered By: Romain Roy on 08-27-2024 Hematocrit (Bld) [Volume fraction] Hematocrit [Volume Fraction] of Blood by Automated count Low 38.8-50.0 [facility] Hemoglobin [Mass/volume] in BloodOrdered By: Romain Roy on 08-27-2024 Hemoglobin (Bld) [Mass/Vol] Hemoglobin [Mass/volume] in Blood Low 13.0-17.0 [facility] Laboratory - Microbiology an d Antimicrobial susceptibilityOrdered By: Romain Roy on 08-27-2024 Bacteria identified Cx Nom (Bld) NO GROWTH 5 DAYS [facility] Bacteria identified Cx Nom (Bld) NO GROWTH 5 DAYS [facility] Bacteria identified Cx Nom (Bld) NO GROWTH 5 DAYS [facility] Leukocytes [#/volume] correc celena for nucleated erythrocytes in Blood by Automated counOrdered By: Romain Roy on 08-27-2024 WBC corrected for nucl RBC Auto (Bld) [#/Vol] Leukocytes [#/volume] corrected for nucleated erythrocytes in Blood by Automated coun 4.1-10.5 [facility] Lymphocytes Auto (Bld) [#/Vo l]Ordered By: Romain Roy on 08-27-2024 Lymphocytes (Bld) [#/Vol] Lymphocytes [#/volume] in Blood by Automated count 1.00-4.8 [facility] Lymphocytes/100 WBC Auto (Bl d)Ordered By: Romain Roy on 08-27-2024 Lymphocytes/100 WBC (Bld) Lymphocytes/100 leukocytes in Blood by Automated count . [facility] MCH Auto (RBC) [Entitic mass ]Ordered By: Romain Roy on 08-27-2024 MCH (RBC) [Entitic mass] MCH [Entitic mass] by Automated count 27.5-35.2 [facility] MCHC Auto (RBC) [Mass/Vol]Or dered By: Romain Roy on 08-27-2024 MCHC (RBC) [Mass/Vol] MCHC [Mass/volume] by Automated count 32.5-35.6 [facility] MCV Auto (RBC) [Entitic vol] Ordered By: Romain Roy on 08-27-2024 MCV (RBC) [Entitic vol] MCV [Entitic vol ume] by Automated count 83.5-101 [facility] Monocyte distribution width [Entitic volume] in Blood by AutomatedOrdered By: Romain Roy on 08-27-2024 Monocyte distribution width Auto (Bld) [Entitic vol] Monocyte distribution width [Entitic volume] in Blood by Automated 0.00-20.00 [facility] Monocytes Auto (Bld) [#/Vol] Ordered By: Romain Roy on 08-27-2024 Monocytes (Bld) [#/Vol] Automated blood monocyte count 0.0-0.8 [facility] Monocytes/100 WBC Auto (Bld) Ordered By: Romain Roy on 08-27-2024 Monocytes/100 WBC (Bld) Automated monocyte % . [facility] Natriuretic peptide B [Mass/ Vol]Ordered By: Romain Roy on 08-27-2024 Natriuretic peptide B (Bld) [Mass/Vol] BNP ser/plas High 5-100 [facility] Neutrophils Auto (Bld) [#/Vo l]Ordered By: Romain Roy on 08-27-2024 Neutrophils (Bld) [#/Vol] Neutrophils [#/volume] in Blood by Automated count 1.8-7.7 [facility] Neutrophils/100 WBC Auto (Bl d)Ordered By: Romain Roy on 08-27-2024 Neutrophils/100 WBC (Bld) Automated neutrophil % . [facility] No Panel InformationOrdered By: Romain Roy on 08-27-2024 Estimated GFR (CKD-EPI) 11.645 mL/Min [facility] Creatinine Clearance (Chem 18.30 [facility] 11.645 mL/Min [facility] 18.30 [facility] NO GROWTH 5 DAYS [facility] Nucleated erythrocytes [Pres ence] in Blood by Automated countOrdered By: Romain Roy on 08-27-2024 Nucleated RBC Auto Ql (Bld) Nucleated erythrocytes [Presence] in Blood by Automated count 0-0.5 [facility] Platelet mean volume Auto (B ld) [Entitic vol]Ordered By: Romain Roy on 08-27-2024 Platelet mean volume (Bld) [Entitic vol] Platelet mean volume [Entitic volume] in Blood by Automated count 6.6-10.1 [facility] Platelets Auto (Bld) [#/Vol] Ordered By: Romain Roy on 08-27-2024 Platelets (Bld) [#/Vol] Platelets [#/vol ume] in Blood by Automated count 150-450 [facility] Potassium [Moles/volume] in Serum or PlasmaOrdered By: Romain Roy on 08-27-2024 Potassium [Moles/Vol] Potassium [Moles/v olume] in Serum or Plasma 3.5-5.1 [facility] Protein [Mass/volume] in Ser um or PlasmaOrdered By: Romain Roy on 08-27-2024 Protein [Mass/Vol] Protein [Mass/volume ] in Serum or Plasma 6.4-8.9 [facility] RBC Auto (Bld) [#/Vol]Ordere d By: Romain Roy on 08-27-2024 RBC (Bld) [#/Vol] Erythrocytes [#/volu me] in Blood by Automated count Low 3.90-5.60 [facility] Respiratory specimen influen za A virus, influenza B virus, respiratory syncytical virOrdered By: Romain Roy on 08-27-2024 SARS-CoV-2 (COVID-19) RNA HAO+probe Ql (Unsp spec) Respiratory specimen influenza A virus, influenza B virus, respiratory syncytical vir [facility] Serum or plasma albumin/glob ulin mass ratioOrdered By: Romain Roy on 08-27-2024 Albumin/Globulin [Mass ratio] Serum or plasma albumin/globulin mass ratio [facility] Serum or plasma anion gap de terminationOrdered By: Romain Roy on 08-27-2024 Anion gap [Moles/Vol] Serum or plasma an ion gap determination High 6.0-15.0 [facility] Sodium [Moles/volume] in Ser um or PlasmaOrdered By: Romain Roy on 08-27-2024 Sodium [Moles/Vol] Sodium [Moles/volume ] in Serum or Plasma Low 136-145 [facility] Troponin I High Sensitivityo n 08-27-2024 Troponin I High Sensitivity 118.0 pg/mL Off scale high 0.0-20.0 [facility] Comment on above: Result Comment: Crit ical Result : Called to and read back by: PETAR GOFF at: 08/28/2024 00:49:23 by:[id number] BY:[address] [id number] MEDICAL DIRECTORCRISTHIAN HUFF M.D. Performed By: #### C BC, CMP, BNP, HS TROP ####[facility] [place] [address] [facility] Troponin I.cardiac [Mass/vol ume] in Serum or Plasma by Detection limit <= 0.01 ng/Ordered By: Romain Roy on 08-27-2024 Troponin I.cardiac DL <= 0.01 ng/mL [Mass/Vol] Troponin I.cardiac [Mass/volume] in Serum or Plasma by Detection limit <= 0.01 ng/ Critically high 0.0-20.0 [facility] Comment on above: Critical Result : Ca lled to and read back by: PETAR GOFF at: 08/28/2024 00:49:23 by:[id number] Urea nitrogen [Mass/volume] in Serum or PlasmaOrdered By: Romain Roy on 08-27-2024 Urea nitrogen [Mass/Vol] Urea nitrogen [Mass/volume] in Serum or Plasma High 7-25 [facility] WBC Auto (Bld) [#/Vol]Ordere d By: Romain Roy on 08-27-2024 WBC (Bld) [#/Vol] Leukocytes [#/volume ] in Blood by Automated count 4.1-10.5 [facility] X-ray reportOrdered By: Trenton Salinas on 08-27-2024 Study report [facility] [address] [place] [address] XRay Report Signed Patient: Yoel Werner MR#: [id number] : 1985 Acct:[id number] Age/Sex: 39 / M ADM Date: 5 Loc: ER Room: Type: [facility] ER Attending Dr: Copies to: Romain Roy DO~ Ordering Provider: Romain Roy DO Date of Service: 08/27/24 XR/XR chest [...] Trenton Salinas M.D.08/27/2024 11:57 PM Dictation Location: [place] [address] Transcribed By: [facility] 08/27/242356 Dictated By: Trenton Salinas II, MD 08/27/242352 Signed By: 08/27/24 [facility], [facility] Work Phone: XR chest 1V portableon 08-27 XR chest 1V portable Normal [facility] COVID Cepheid NegativeOrdere d By: Donna Shaw on 08-17-2024 SARS-CoV-2 (COVID-19) Ab IA Ql COVID Cepheid Negative [facility] Comment on above: This is a duplicate Cepheid Xpert Xpress CoV-2/Flu/RSV Plus RNA by RT-PCR result to be used for statistical tracking purpose only. SARS-CoV-2 (COVID-19) RNA HAO+probe Ql (Unsp spec) COVID Cepheid Negative [facility] COVID-19 / FLU A/B / RSV PCR ([facility])on 08-17-2024 SARS-CoV-2 (COVID-19) RNA HAO+probe Ql (Unsp spec) Negative Negative [facility] Comment on above: This is a duplicate Cepheid Xpert Xpress CoV-2/Flu/RSV Plus RNA by RT-PCR result to be used for statistical tracking purpose only. [facility] CEPHEID DISCLAIMER The Cepheid Xpert Xp ress CoV-2/Flu/RSV Plus has [facility] CEPHEID DISCLAIMER not been FDA cleared or approved; this test has [facility] CEPHEID DISCLAIMER been authorized by [employer] under an EUA for use by [facility] CEPHEID DISCLAIMER authorized laborator ies; this test has been [facility] CEPHEID DISCLAIMER authorized only for the simultaneous qualitative [facility] CEPHEID DISCLAIMER detection and differentiation of nucleic acids from [facility] CEPHEID DISCLAIMER respiratory syncytia l virus (RSV), and not for any [facility] CEPHEID DISCLAIMER other viruses or pathogens; and this test is only [facility] CEPHEID DISCLAIMER authorized for the duration of the declaration that [facility] CEPHEID DISCLAIMER circumstances exist justifying the authorization of [facility] CEPHEID DISCLAIMER emergency use of in vitro diagnostic tests for [facility] CEPHEID DISCLAIMER Section 564(b)(1) of the Act, 21 U.S.C. 360bbb- [facility] CEPHEID DISCLAIMER 3(b)(1), unless the authorization is terminated or [facility] CEPHEID DISCLAIMER revoked sooner. N [facility] FLU A CEPHEID RESULT Negative [facility] FLU B CEPHEID RESULT Negative [facility] Interpretation and review of laboratory results Abnormal [facility] REFERENCE: Negative [facility] RSV CEPHEID RESULT Positive Abnormal [facility] SARS-CoV-2 (COVID-19) Ab IA Ql SARS-CoV-2, influenza A, influenza B, and [facility] SARS-CoV-2 (COVID-19) RNA HAO+probe Ql (Unsp spec) Negative [facility] SARS-CoV-2 (COVID-19) RNA HAO+probe Ql (Unsp spec) detection and/or diagnosis of COVID-19 under [facility] COVID-19 / Flu A/B / RSV PCR on 08-17-2024 SARS-CoV-2 (COVID-19) RNA HAO+probe Ql (Unsp spec) Normal [facility] Comment on above: Performed By: #### C OVID19 FLU RSV, CEPHEID NEG ####[facility] [place] [address] [facility] Cepheid COVID PCR Negativeon 08-17-2024 SARS-CoV-2 (COVID-19) RNA HAO+probe Ql (Unsp spec) Negative Normal Negative [facility] Comment on above: Result Comment: This is a duplicate Cepheid Xpert Xpress CoV-2/Flu/RSV Plus RNA by RT-PCR result to be used for statistical tracking purpose only.PERFORMED BY:[address] [place], [place] [id number] MEDICAL DIRECTORCRISTHIAN HUFF M.D. Performed By: #### C OVID19 FLU RSV, CEPHEID NEG ####[facility] [place] [id number] [facility] Laboratory - Microbiology an d Antimicrobial susceptibilityon 08-17-2024 SARS-CoV-2 (COVID-19) RNA HAO+probe Ql (Unsp spec) ------ [facility] Respiratory specimen influen za A virus, influenza B virus, respiratory syncytical virOrdered By: Donna Shaw on 08-17-2024 SARS-CoV-2 (COVID-19) RNA HAO+probe Ql (Unsp spec) Respiratory specimen influenza A virus, influenza B virus, respiratory syncytical vir [facility] SARS-CoV-2 (COVID-19) RNA HAO+probe Ql (Unsp spec) Respiratory specimen influenza A virus, influenza B virus, respiratory syncytical vir [facility] XR chest 2V*on 08-17-2024 XR chest 2V* Normal [facility] Consulton 08-13-2024 Consult [id number] Yoel Werner 1985 M Date Provider Department Center 08/13/2024 STEPHEN MCGHEE 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 w/ no testing Normal [facility] Alanine aminotransferase [En zymatic activity/volume] in Serum or PlasmaOrdered By: Tenzin Ortiz on 08-01-2024 ALT [Catalytic activity/Vol] Alanine aminotransferase [Enzymatic activity/volume] in Serum or Plasma [facility] Albumin [Mass/volume] in Ser um or Plasma by Bromocresol green (BCG) dye binding methoOrdered By: Tenzin Ortiz on 08-01-2024 Albumin BCG dye [Mass/Vol] Albumin [Mass/volume] in Serum or Plasma by Bromocresol green (BCG) dye binding metho 3.5-5.7 [facility] Alkaline phosphatase [Enzyma tic activity/volume] in Serum or PlasmaOrdered By: Tenzin Ortiz on 08-01-2024 ALP [Catalytic activity/Vol] Alkaline phosphatase [Enzymatic activity/volume] in Serum or Plasma 34-104 [facility] Appearance of UrineOrdered B y: Tenzin Ortiz on 08-01-2024 Appearance (U) Urine appearance Clear [facility] Aspartate aminotransferase [ Enzymatic activity/volume] in Serum or PlasmaOrdered By: Tenzin Ortiz on 08-01-2024 AST [Catalytic activity/Vol] Aspartate aminotransferase [Enzymatic activity/volume] in Serum or Plasma Low 13-39 [facility] B-Type Natriuretic Peptideon 08-01-2024 Natriuretic peptide B (Bld) [Mass/Vol] 2909.0 pg/mL High 5-100 [facility] Comment on above: Result Comment: PERF ORMED BY:[facility] [place], [place] [phone] MEDICAL DIRECTORCRISTHIAN HUFF M.D. Performed By: #### C BC, CMP, CK, HS TROP, BNP ####[facility] [place] [address] [place] Bacteria [Presence] in Urine by AutomatedOrdered By: Tenzin Ortiz on 08-01-2024 Bacteria Auto Ql (U) Bacteria [Presence] in Urine by Automated None Seen [facility] Basophils Auto (Bld) [#/Vol] Ordered By: Tenzin Ortiz on 08-01-2024 Basophils (Bld) [#/Vol] Automated basophil count 0.0-0.2 [facility] Basophils/100 WBC Auto (Bld) Ordered By: Tenzin Ortiz on 08-01-2024 Basophils/100 WBC (Bld) Automated basophil % . [facility] Bilirubin Test strip Ql (U)O rdered By: Tenzin Ortiz on 08-01-2024 Bilirubin Ql (U) Bilirubin.total [Presence] in Urine by Test strip Negative [facility] Bilirubin.total [Mass/volume ] in Serum or PlasmaOrdered By: Tenzin Ortiz on 08-01-2024 Bilirubin [Mass/Vol] Bilirubin.total [Mass/volume] in Serum or Plasma 0.3-1.0 [facility] Calcium [Mass/volume] in Ser um or PlasmaOrdered By: Tenzin Ortiz on 08-01-2024 Calcium [Mass/Vol] Calcium [Mass/volume ] in Serum or Plasma 8.6-10.3 [facility] Carbon dioxide, total [Moles /volume] in Serum or PlasmaOrdered By: Tenzin Ortiz on 08-01-2024 CO2 [Moles/Vol] Carbon dioxide, tota l [Moles/volume] in Serum or Plasma 21.0-31.0 [facility] Chloride [Moles/volume] in S gretta or PlasmaOrdered By: Tenzin Ortiz on 08-01-2024 Chloride [Moles/Vol] Chloride [Moles/vol ume] in Serum or Plasma Low 98-107 [facility] Color Auto (U)Ordered By: Jose Luis Ortiz on 08-01-2024 Color (U) Color of Urine by Auto Yellow [facility] Count Auto Di ffon 08-01-2024 Basophils (Bld) [#/Vol] 0.1 10*3/uL Normal 0.0-0.2 [facility] Comment on above: Result Comment: PERF ORMED BY:[place] [id number] [place], [place] [phone] MEDICAL DIRECTORCRISTHIAN HUFF M.D. Performed By: #### C BC, CMP, CK, HS TROP, BNP ####[address] Basophils/100 WBC (Bld) 1.4 % Normal . Karlee levine [facility] Comment on above: Performed By: #### C BC, CMP, CK, HS TROP, BNP ####[address] Eosinophils (Bld) [#/Vol] 0.2 10*3/uL Normal 0.0-0.45 [facility] Comment on above: Performed By: #### C BC, CMP, CK, HS TROP, BNP ####[address] Eosinophils/100 WBC (Bld) 3.7 % Normal . [facility] Comment on above: Performed By: #### C BC, CMP, CK, HS TROP, BNP ####[address] Erythrocyte distribution width (RBC) [Ratio] 15.1 % High 12.0-14.8 [facility] Comment on above: Performed By: #### C BC, CMP, CK, HS TROP, BNP ####[address] Hematocrit (Bld) [Volume fraction] 31.9 % Low 38.8-50.0 [facility] Comment on above: Performed By: #### C BC, CMP, CK, HS TROP, BNP ####[address] Hemoglobin (Bld) [Mass/Vol] 10.8 g/dL Low 13.0-17.0 [facility] Comment on above: Performed By: #### C BC, CMP, CK, HS TROP, BNP ####[address] Lymphocytes (Bld) [#/Vol] 0.7 10*3/uL Low 1.00-4.8 [facility] Comment on above: Performed By: #### C BC, CMP, CK, HS TROP, BNP ####[address] Lymphocytes/100 WBC (Bld) 16.0 % Normal . [facility] Comment on above: Performed By: #### C BC, CMP, CK, HS TROP, BNP ####[address] MCH (RBC) [Entitic mass] 29.9 pg Normal 27.5-35.2 [facility] Comment on above: Performed By: #### C BC, CMP, CK, HS TROP, BNP ####[address] MCV (RBC) [Entitic vol] 88.0 fL Normal 83.5-101 [facility] Comment on above: Performed By: #### C BC, CMP, CK, HS TROP, BNP ####[address] Mean Corpuscular HGB Conc 34.0 g/dL Normal 32.5-35.6 [facility] Comment on above: Performed By: #### C BC, CMP, CK, HS TROP, BNP ####[address] Monocytes (Bld) [#/Vol] 0.2 10*3/uL Normal 0.0-0.8 [facility] Comment on above: Performed By: #### C BC, CMP, CK, HS TROP, BNP ####[address] Monocytes/100 WBC (Bld) 16.65 % Normal 0.00-20.00 [facility] Comment on above: Performed By: #### C BC, CMP, CK, HS TROP, BNP ####[address] Monocytes/100 WBC (Bld) 5.0 % Normal . [facility] Comment on above: Performed By: #### C BC, CMP, CK, HS TROP, BNP ####[address] Neutrophils (Bld) [#/Vol] 3.3 10*3/uL Normal 1.8-7.7 [facility] Comment on above: Performed By: #### C BC, CMP, CK, HS TROP, BNP ####[address] Neutrophils/100 WBC (Bld) 73.9 % Normal . [facility] Comment on above: Performed By: #### C BC, CMP, CK, HS TROP, BNP ####[address] NRBC% 0.2 /100{WBC} Normal 0-0.5 [facility] Comment on above: Performed By: #### C BC, CMP, CK, HS TROP, BNP ####[address] Platelet mean volume (Bld) [Entitic vol] 8.7 fL Normal 6.6-10.1 [facility] Comment on above: Performed By: #### C BC, CMP, CK, HS TROP, BNP ####[address] Platelets (Bld) [#/Vol] 130 10*3/uL Low 150-450 [facility] Comment on above: Performed By: #### C BC, CMP, CK, HS TROP, BNP ####[address] RBC (Bld) [#/Vol] 3.62 10*6/uL Low 3.90-5.60 [facility] Comment on above: Performed By: #### C BC, CMP, CK, HS TROP, BNP ####[address] WBC (Bld) [#/Vol] 4.5 10*3/uL Normal 4.1-10.5 [facility] Comment on above: Performed By: #### C BC, CMP, CK, HS TROP, BNP ####[address] Comprehensive Metabolic Pane dioni 08-01-2024 Albumin [Mass/Vol] 3.9 g/dL Normal 3.5-5.7 [facility] Comment on above: Performed By: #### C BC, CMP, CK, HS TROP, BNP ####[address] Albumin/Globulin [Mass ratio] 1.4 {ratio} Normal [facility] Comment on above: Performed By: #### C BC, CMP, CK, HS TROP, BNP ####[address] ALP [Catalytic activity/Vol] 59 U/L Normal 34-104 [facility] Comment on above: Performed By: #### C BC, CMP, CK, HS TROP, BNP ####[address] ALT [Catalytic activity/Vol] 9 U/L Normal 7-52 [facility] Comment on above: Performed By: #### C BC, CMP, CK, HS TROP, BNP ####[address] Anion gap [Moles/Vol] 12.9 mmol/L Normal 6.0-15.0 Th e [facility] Comment on above: Performed By: #### C BC, CMP, CK, HS TROP, BNP ####[address] AST [Catalytic activity/Vol] 11 U/L Low 13-39 [facility] Comment on above: Performed By: #### C BC, CMP, CK, HS TROP, BNP ####[address] Bilirubin [Mass/Vol] 0.6 mg/dL Normal 0.3-1.0 [facility] Comment on above: Performed By: #### C BC, CMP, CK, HS TROP, BNP ####[address] Calcium [Mass/Vol] 8.9 mg/dL Normal 8.6-10.3 [facility] Comment on above: Performed By: #### C BC, CMP, CK, HS TROP, BNP ####[address] Chloride [Moles/Vol] 95 mmol/L Low 98-107 [facility] Comment on above: Performed By: #### C BC, CMP, CK, HS TROP, BNP ####[address] CO2 [Moles/Vol] 28.5 mmol/L Normal 21.0-31.0 [facility] Comment on above: Performed By: #### C BC, CMP, CK, HS TROP, BNP ####[address] Creatinine [Mass/Vol] 4.40 mg/dL High 0.70-1.30 [facility] Comment on above: Performed By: #### C BC, CMP, CK, HS TROP, BNP ####[address] Creatinine Clr Calc Pharmacy 23.50 Normal [facility] Comment on above: Result Comment: PERF ORMED BY:[address] [place], [place] [phone] MEDICAL DIRECTORCRISTHIAN HUFF M.D. Performed By: #### C BC, CMP, CK, HS TROP, BNP ####[address] Estimated GFR 16.592 mL/Min Normal [facility] Comment on above: Performed By: #### C BC, CMP, CK, HS TROP, BNP ####[address] Globulin (S) [Mass/Vol] 2.8 g/dL Normal T he [facility] Comment on above: Performed By: #### C BC, CMP, CK, HS TROP, BNP ####[address] [place] [address] [place] Glucose [Mass/Vol] 374 mg/dL High 70-100 [facility] Comment on above: Result Comment: [facility] Glucose Reference Range is dependent on time and content of last meal. Glucose of more than 200 mg/dL in a nonstressed, ambulatory subject supports the diagnosis of Diabetes Mellitus. ADA recommended reference range Performed By: #### C BC, CMP, CK, HS TROP, BNP ####[address] Potassium [Moles/Vol] 4.4 mmol/L Normal 3.5-5.1 [facility] Comment on above: Performed By: #### C BC, CMP, CK, HS TROP, BNP ####[address] Protein [Mass/Vol] 6.7 g/dL Normal 6.4-8.9 [facility] Comment on above: Performed By: #### C BC, CMP, CK, HS TROP, BNP ####[address] Sodium [Moles/Vol] 132 mmol/L Low 136-145 [facility] Comment on above: Performed By: #### C BC, CMP, CK, HS TROP, BNP ####[address] Urea nitrogen [Mass/Vol] 33 mg/dL High 7-25 [facility] Comment on above: Performed By: #### C BC, CMP, CK, HS TROP, BNP ####[place] [id number] [facility] Creatine Kinaseon 08-01-2024 CK [Catalytic activity/Vol] 67 U/L Normal 30-223 [facility] Comment on above: Performed By: #### C BC, CMP, CK, HS TROP, BNP ####[address] Creatine kinase [Enzymatic a ctivity/volume] in Serum or PlasmaOrdered By: Tenzin Ortiz on 08-01-2024 CK [Catalytic activity/Vol] Creatine kinase [Enzymatic activity/volume] in Serum or Plasma 30 [facility] Creatinine [Mass/volume] in Serum or PlasmaOrdered By: Tenzin Ortiz on 08-01-2024 Creatinine [Mass/Vol] Creatinine [Mass/v olume] in Serum or Plasma High 0.70-1.30 [facility] Dipstick and Microscopicon 1 10-02-2023 Appearance (U) Clear Normal Clear [facility] Comment on above: Order Comment: Name Collection Type:: Clean-Voided Midstream Performed By: #### A DDONUAPLUS ####[address] [address] [facility] Bacteria,Urine Rare Normal None Seen [facility] Comment on above: Order Comment: Name Collection Type:: Clean-Voided Midstream Performed By: #### A DDONUAPLUS ####[address] [address] [facility] Bilirubin,Urine Negative Normal Negative [facility] Comment on above: Order Comment: Name Collection Type:: Clean-Voided Midstream Performed By: #### A DDONUAPLUS ####[address] [address] [facility] Color (U) Light-Yellow Normal Yellow [facility] Comment on above: Order Comment: Name Collection Type:: Clean-Voided Midstream Performed By: #### A DDONUAPLUS ####[address] [address] [facility] Glucose Ql (U) >= High Normal [facility] Comment on above: Order Comment: Name Collection Type:: Clean-Voided Midstream Performed By: #### A DDONUAPLUS ####[address] [address] [facility] Hyaline Casts,Urine 0 [LPF] Normal 0-8 [facility] Comment on above: Order Comment: Name Collection Type:: Clean-Voided Midstream Result Comment: PERF ORMED BY:[address] [place], [place] [phone] MEDICAL DIRECTORCRISTHIAN HUFF M.D. Performed By: #### A DDONUAPLUS ####[address] [address] [facility] Ketones Ql (U) Negative Normal Negative [facility] Comment on above: Order Comment: Name Collection Type:: Clean-Voided Midstream Performed By: #### A DDONUAPLUS ####[address] [address] [facility] Leukocyte esterase Test strip Ql (U) Negative Normal Negative [facility] Comment on above: Order Comment: Name Collection Type:: Clean-Voided Midstream Performed By: #### A DDONUAPLUS ####[address] [address] [facility] Nitrite,Urine Negative Normal Negative [facility] Comment on above: Order Comment: Name Collection Type:: Clean-Voided Midstream Performed By: #### A DDONUAPLUS ####[address] [address] [facility] Occult Blood,Urine 1+ High Negative [facility] Comment on above: Order Comment: Name Collection Type:: Clean-Voided Midstream Result Comment: PERF ORMED BY:[address] [place], [place] [id number] MEDICAL DIRECTORCRISTHIAN HUFF M.D. Performed By: #### A DDONUAPLUS ####[address] [address] [facility] pH (U) 8.0 [pH] Normal 5.0-9.0 [facility] Comment on above: Order Comment: Name Collection Type:: Clean-Voided Midstream Performed By: #### A DDONUAPLUS ####[address] [address] [facility] Protein (U) [Mass/Vol] 300 mg/dL High Negative Th e [facility] Comment on above: Order Comment: Name Collection Type:: Clean-Voided Midstream Performed By: #### A DDONUAPLUS ####[address] [address] [facility] RBC,Urine 10 [HPF] High 0-4 [facility] Comment on above: Order Comment: Name Collection Type:: Clean-Voided Midstream Performed By: #### A DDONUAPLUS ####[address] Specificy [place],Urine 1.008 Normal 1.001-1.030 [facility] Comment on above: Order Comment: Name Collection Type:: Clean-Voided Midstream Performed By: #### A DDONUAPLUS ####[address] Urobilinogen,Urine Normal Normal Normal [facility] Comment on above: Order Comment: Name Collection Type:: Clean-Voided Midstream Performed By: #### A DDONUAPLUS ####[address] WBC,Urine 5 [HPF] High 0-4 [facility] Comment on above: Order Comment: Name Collection Type:: Clean-Voided Midstream Performed By: #### A DDONUAPLUS ####[address] ECG 12 lead ECGon 08-01-2024 ECG 12 lead ECG Normal [facility] Eosinophils Auto (Bld) [#/Vo l]Ordered By: Tenzin Ortiz on 08-01-2024 Eosinophils (Bld) [#/Vol] Automated eosinophil count 0.0-0.45 [facility] Eosinophils/100 WBC Auto (Bl d)Ordered By: Tenzin Ortiz on 08-01-2024 Eosinophils/100 WBC (Bld) Automated eosinophil % . [facility] Epithelial cells.squamous [# /area] in Urine sediment by Automated countOrdered By: Tenzin Ortiz on 08-01-2024 Epithelial cells.squamous Auto (Urine sed) [#/Area] Epithelial cells.squamous [#/area] in Urine sediment by Automated count [facility] Erythrocyte distribution wid th Auto (RBC) [Ratio]Ordered By: Tenzin Ortiz on 08-01-2024 Erythrocyte distribution width (RBC) [Ratio] Erythrocyte distribution width [Ratio] by Automated count High 12.0-14.8 [facility] Erythrocytes [#/area] in Uri ne sediment by Automated countOrdered By: Tenzin Ortiz on 08-01-2024 RBC Auto (Urine sed) [#/Area] Erythrocytes [#/area] in Urine sediment by Automated count High 0-4 [facility] Globulin Calc (S) [Mass/Vol] Ordered By: Tenzin Ortiz on 08-01-2024 Globulin (S) [Mass/Vol] Serum globulin measurement by calculation (mass/volume) [facility] Glucose [Mass/volume] in Ser um or PlasmaOrdered By: Tenzin Ortiz on 08-01-2024 Glucose [Mass/Vol] Glucose [Mass/volume ] in Serum or Plasma High 70-100 [facility] Comment on above: ADA recommended refe [...] in Urine by Test strip High Normal [facility] Hematocrit Auto (Bld) [Volum e fraction]Ordered By: Tenzin Ortiz on 08-01-2024 Hematocrit (Bld) [Volume fraction] Hematocrit [Volume Fraction] of Blood by Automated count Low 38.8-50.0 [facility] Hemoglobin Test strip Ql (U) Ordered By: Tenzin Ortiz on 08-01-2024 Hemoglobin Ql (U) Hemoglobin [Presence ] in Urine by Test strip High Negative [facility] Hemoglobin [Mass/volume] in BloodOrdered By: Tenzin Ortiz on 08-01-2024 Hemoglobin (Bld) [Mass/Vol] Hemoglobin [Mass/volume] in Blood Low 13.0-17.0 [facility] Hyaline casts [#/area] in Ur ine sediment by Automated countOrdered By: Tenzin Ortiz on 08-01-2024 Hyaline casts Auto (Urine sed) [#/Area] Hyaline casts [#/area] in Urine sediment by Automated count 0-8 [facility] Ketones Test strip Ql (U)Ord ered By: Tenzin Ortiz on 08-01-2024 Ketones Ql (U) Ketones [Presence] i n Urine by Test strip Negative [facility] Leukocyte esterase [Presence ] in Urine by Test stripOrdered By: Tenzin Ortiz on 08-01-2024 Leukocyte esterase Test strip Ql (U) Leukocyte esterase [Presence] in Urine by Test strip Negative [facility] Leukocytes [#/area] in Urine sediment by Automated countOrdered By: Tenzin Ortiz on 08-01-2024 WBC Auto (Urine sed) [#/Area] Leukocytes [#/area] in Urine sediment by Automated count High 0-4 [facility] Leukocytes [#/volume] correc celena for nucleated erythrocytes in Blood by Automated counOrdered By: Tenzin Ortiz on 08-01-2024 WBC corrected for nucl RBC Auto (Bld) [#/Vol] Leukocytes [#/volume] corrected for nucleated erythrocytes in Blood by Automated coun 4.1-10.5 [facility] Lymphocytes Auto (Bld) [#/Vo l]Ordered By: Tenzin Ortiz on 08-01-2024 Lymphocytes (Bld) [#/Vol] Lymphocytes [#/volume] in Blood by Automated count Low 1.00-4.8 [facility] Lymphocytes/100 WBC Auto (Bl d)Ordered By: Tenzin Ortiz on 08-01-2024 Lymphocytes/100 WBC (Bld) Lymphocytes/100 leukocytes in Blood by Automated count . [facility] MCH Auto (RBC) [Entitic mass ]Ordered By: Tenzin Ortiz on 08-01-2024 MCH (RBC) [Entitic mass] MCH [Entitic mass] by Automated count 27.5-35.2 [facility] MCHC Auto (RBC) [Mass/Vol]Or dered By: Tenzin Ortiz on 08-01-2024 MCHC (RBC) [Mass/Vol] MCHC [Mass/volume] by Automated count 32.5-35.6 [facility] MCV Auto (RBC) [Entitic vol] Ordered By: Tenzin Ortiz on 08-01-2024 MCV (RBC) [Entitic vol] MCV [Entitic vol ume] by Automated count 83.5-101 [facility] Monocyte distribution width [Entitic volume] in Blood by AutomatedOrdered By: Tenzin Ortiz on 08-01-2024 Monocyte distribution width Auto (Bld) [Entitic vol] Monocyte distribution width [Entitic volume] in Blood by Automated 0.00-20.00 [facility] Monocytes Auto (Bld) [#/Vol] Ordered By: Tenzin Ortiz on 08-01-2024 Monocytes (Bld) [#/Vol] Automated blood monocyte count 0.0-0.8 [facility] Monocytes/100 WBC Auto (Bld) Ordered By: Tenzin Ortiz on 08-01-2024 Monocytes/100 WBC (Bld) Automated monocyte % . [facility] Natriuretic peptide B [Mass/ Vol]Ordered By: Tenzin Ortiz on 08-01-2024 Natriuretic peptide B (Bld) [Mass/Vol] BNP ser/plas High 5-100 [facility] Neutrophils Auto (Bld) [#/Vo l]Ordered By: Tenzin Ortiz on 08-01-2024 Neutrophils (Bld) [#/Vol] Neutrophils [#/volume] in Blood by Automated count 1.8-7.7 [facility] Neutrophils/100 WBC Auto (Bl d)Ordered By: Tenzin Ortiz on 08-01-2024 Neutrophils/100 WBC (Bld) Automated neutrophil % . [facility] Nitrite Test strip Ql (U)Ord ered By: Tenzin Ortiz on 08-01-2024 Nitrite Ql (U) Nitrite [Presence] i n Urine by Test strip Negative [facility] No Panel InformationOrdered By: Tenzin Ortiz on 08-01-2024 Estimated GFR (CKD-EPI) 16.592 mL/Min [facility] Creatinine Clearance (Chem 23.50 [facility] 16.592 mL/Min [facility] 23.50 [facility] Nucleated erythrocytes [Pres ence] in Blood by Automated countOrdered By: Tenzin Ortiz on 08-01-2024 Nucleated RBC Auto Ql (Bld) Nucleated erythrocytes [Presence] in Blood by Automated count 0-0.5 [facility] Platelet mean volume Auto (B ld) [Entitic vol]Ordered By: Tenzin Ortiz on 08-01-2024 Platelet mean volume (Bld) [Entitic vol] Platelet mean volume [Entitic volume] in Blood by Automated count 6.6-10.1 [facility] Platelets Auto (Bld) [#/Vol] Ordered By: Tenzin Ortiz on 08-01-2024 Platelets (Bld) [#/Vol] Platelets [#/vol ume] in Blood by Automated count Low 150-450 [facility] Potassium [Moles/volume] in Serum or PlasmaOrdered By: Tenzni Ortiz on 08-01-2024 Potassium [Moles/Vol] Potassium [Moles/v olume] in Serum or Plasma 3.5-5.1 [facility] Protein Test strip (U) [Mass /Vol]Ordered By: Tenzin Ortiz on 08-01-2024 Protein (U) [Mass/Vol] Protein [Mass/vol ume] in Urine by Test strip High Negative [facility] Protein [Mass/volume] in Ser um or PlasmaOrdered By: Tnezin Ortiz on 08-01-2024 Protein [Mass/Vol] Protein [Mass/volume ] in Serum or Plasma 6.4-8.9 [facility] RBC Auto (Bld) [#/Vol]Ordere d By: Tenzin Ortiz on 08-01-2024 RBC (Bld) [#/Vol] Erythrocytes [#/volu me] in Blood by Automated count Low 3.90-5.60 [facility] Serum or plasma albumin/glob ulin mass ratioOrdered By: Tenzin Ortiz on 08-01-2024 Albumin/Globulin [Mass ratio] Serum or plasma albumin/globulin mass ratio [facility] Serum or plasma anion gap de terminationOrdered By: Tenzin Ortiz on 08-01-2024 Anion gap [Moles/Vol] Serum or plasma an ion gap determination 6.0-15.0 [facility] Sodium [Moles/volume] in Ser um or PlasmaOrdered By: Tenzin Ortiz on 08-01-2024 Sodium [Moles/Vol] Sodium [Moles/volume ] in Serum or Plasma Low 136-145 [facility] Specific gravity Test strip (U) [Rel density]Ordered By: Tenzin Ortiz on 08-01-2024 Specific gravity (U) [Rel density] Specific gravity of Urine by Test strip 1.001-1.030 [facility] Troponin I High Sensitivityo n 08-01-2024 Troponin I High Sensitivity 42.3 pg/mL High 0.0-20.0 [facility] Comment on above: Result Comment: PERF ORMED BY:[place] [address] [place], [place] [id number] MEDICAL DIRECTORMOHAMED M EL-FAKHARANY M.D. Performed By: #### C BC, CMP, CK, HS TROP, BNP ####[facility] [id number] [place] [address] [facility] Troponin I.cardiac [Mass/vol ume] in Serum or Plasma by Detection limit <= 0.01 ng/Ordered By: Tenzin Ortiz on 08-01-2024 Troponin I.cardiac DL <= 0.01 ng/mL [Mass/Vol] Troponin I.cardiac [Mass/volume] in Serum or Plasma by Detection limit <= 0.01 ng/ High 0.0-20.0 [facility] Urea nitrogen [Mass/volume] in Serum or PlasmaOrdered By: Tenzin Ortiz on 08-01-2024 Urea nitrogen [Mass/Vol] Urea nitrogen [Mass/volume] in Serum or Plasma High 7-25 [facility] Urobilinogen Test strip (U) [Mass/Vol]Ordered By: Tenzin Ortiz on 08-01-2024 Urobilinogen (U) [Mass/Vol] Urobilinogen [Mass/volume] in Urine by Test strip Normal [facility] WBC Auto (Bld) [#/Vol]Ordere d By: Tenzin Ortiz on 08-01-2024 WBC (Bld) [#/Vol] Leukocytes [#/volume ] in Blood by Automated count 4.1-10.5 [facility] XR chest 1V portableon 08-01 XR chest 1V portable Normal [facility] pH Test strip (U)Ordered By: Tenzin Ortiz on 08-01-2024 pH (U) pH of Urine by Test strip 5.0-9.0 [facility] ANTITHROMBIN IIIon ANTITHROMBIN ACTUAL/NORMAL IN PPP BY CHROMOGENIC METHOD 91 % Normal 70-120 [facility] Comment on above: Performed By: #### L [id number] #### [facility] TISSUE TYPING (HISTOTRAC) [address] [place] [address] [facility] APC RESISTANCEon 07-14-2024 ACTIVATED PROTEIN C RESISTANCE (TIME RATIO) IN PPP BY COAG ASSAY 2.5 Normal 2-4.9 [facility] Comment on above: Performed By: #### L [id number] #### [facility] [address] [place] [address] B-TYPE NATRIURETIC PEPTIDEon 07-14-2024 Natriuretic peptide B (Bld) [Mass/Vol] 2079 pg/mL High 0-100 [facility] Comment on above: Performed By: #### L [id number] #### [facility] ([facility]) [address] [place] [address] BILIRUBIN, DIRECTon 07-14-20 24 Magnesium [Mass/Vol] 0.1 mg/dL Normal 0-0.2 [facility] Comment on above: Performed By: #### L [id number] #### [facility] ([facility]) [address] [place] [address] C-PEPTIDEon 07-14-2024 C PEPTIDE (NG/ML) IN SER/PLAS 2.3 ng/mL Normal 0.5-3.3 [facility] Comment on above: Result Comment: INTE RPRETIVE INFORMATION: Serum, C-Peptide Reference Interval applies to fasting specimens. To convert to nmol/L, multiply by 0.33 Performed By: [employer] [address] [place] [address] Photographic Printer: Gage Daley MD, PhD CLIA Number: [id number] Performed By: #### L [id number] #### [facility] ([facility]) [address] [place] [address] CBC WITH AUTO DIFFERENTIALon 07-14-2024 Erythrocyte distribution width (RBC) [Ratio] 14.4 % Normal 11.5-15.0 [facility] Comment on above: Performed By: #### L [id number] #### [facility] [address] [place] [address] ERYTHROCYTE MEAN CORPUSCULAR HEMOGLOBIN CONCENTRATION (G/DL) BY AUTOMATED 33.0 g/dL Normal 32.0-35.0 [facility] Comment on above: Performed By: #### L [id number] #### [facility] ([facility] [address] [place] [address] Hematocrit (Bld) [Volume fraction] 34.2 % Low 39.0-55.0 [facility] Comment on above: Performed By: #### L [id number] #### [facility] ([facility]) [address] [place] [address] Hemoglobin (Bld) [Mass/Vol] 11.3 g/dL Low 13.0-17.0 [facility] Comment on above: Performed By: #### L [id number] #### [facility] ([facility]) [address] [place] [address] IMMATURE PLATELET FRACTION % 2.1 % Normal 0.8-6.3 [facility] Comment on above: Performed By: #### L [id number] #### [facility] ([facility]) [address] [place] [address] MCH (RBC) [Entitic mass] 29.9 pg Normal 27.0-33.0 [facility] Comment on above: Performed By: #### L [id number] #### [facility] ([facility]) [address] [place] [address] MCV (RBC) [Entitic vol] 90.5 fL Normal 82.0-98.0 [facility] Comment on above: Performed By: #### L [id number] #### [facility] ([facility]) [address] [place] [address] NRBC (PER 100 WBCS) BY AUTOMATED COUNT 0.0 % Normal 0 [facility] Comment on above: Performed By: #### L [id number] #### [facility] ([facility]) [address] [place] [address] PLATELETS (10*3/UL) IN BLOOD AUTOMATED COUNT 93 10*3/uL Low 150-400 [facility] Comment on above: Result Comment: Plat elets checked, no clumps or clots Performed By: #### L [id number] #### [facility] ([facility]) [address] [place] [address] RBC (Bld) [#/Vol] 3.78 10*6/uL Low 4.20-5.70 [facility] Comment on above: Performed By: #### L [id number] #### [facility] ([facility]) [address] [place] [address] WBC (Bld) [#/Vol] 3.92 10*3/uL Low 4.00-10.60 [facility] Comment on above: Performed By: #### L [id number] #### [facility] ([facility]) [address] [place] [address] COMPREHENSIVE METABOLIC PANE Dioni 07-14-2024 Albumin [Mass/Vol] 4.1 g/dL Normal 3.5-5.7 [facility] Comment on above: Performed By: #### L [id number] #### [facility] ([facility] [address] [place] [address] ALP [Catalytic activity/Vol] 68 U/L Normal 34-104 [facility] Comment on above: Performed By: #### L [id number] #### [facility] ([facility]) [address] [place] [address] ALT [Catalytic activity/Vol] 9 U/L Normal 7-52 [facility] Comment on above: Performed By: #### L [id number] #### [facility] [address] [place] [address] Anion gap [Moles/Vol] 13 mmol/L Normal 7-20 [facility] Comment on above: Performed By: #### L [id number] #### [facility] ([facility]) [address] [place] [address] AST [Catalytic activity/Vol] 13 U/L Normal 13-39 [facility] Comment on above: Performed By: #### L [id number] #### [facility] ([facility]) [address] [place] [address] Bilirubin [Mass/Vol] 0.5 mg/dL Normal 0.3-1.0 [facility] Comment on above: Performed By: #### L [id number] #### [facility] ([facility]) [address] [place] [address] Calcium [Mass/Vol] 8.5 mg/dL Low 8.6-10.3 [facility] Comment on above: Performed By: #### L [id number] #### [facility] [address] [place] [address] Chloride [Moles/Vol] 96 mmol/L Low 98-107 [facility] Comment on above: Performed By: #### L [id number] #### [facility] ([facility] [address] [place] [address] CO2 [Moles/Vol] 30 mmol/L Normal 21-31 [facility] Comment on above: Performed By: #### L [id number] #### [facility] ([facility]) [address] [place] [address] Creatinine [Mass/Vol] 5.89 mg/dL High 0.70-1.30 [facility] Comment on above: Performed By: #### L [id number] #### [facility] ([facility]) [address] [place] [address] GLOMERULAR FILTRATION RATE ML/MIN/1.73 SQ M.PREDICTED 11.7 mL/min/1.73m*2 Low >60.0 [facility] Comment on above: Result Comment: The [facility]???s estimated glomerular filtration rate (eGFR) will no [...] L [id number] #### [facility] ([facility]) [address] [place] [address] Glucose [Mass/Vol] 116 mg/dL High 70-100 [facility] Comment on above: Performed By: #### L [id number] #### [facility] ([facility]) [address] [place] [address] Potassium [Moles/Vol] 4.2 mmol/L Normal 3.5-5.1 [facility] Comment on above: Performed By: #### L [id number] #### [facility] ([facility]) [address] [place] [address] Protein [Mass/Vol] 6.4 g/dL Normal 6.0-8.3 [facility] Comment on above: Performed By: #### L [id number] #### [facility] ([facility]) [address] [place] [address] Sodium [Moles/Vol] 135 mmol/L Low 136-145 [facility] Comment on above: Performed By: #### L [id number] #### [facility] ([facility]) [address] [place] [address] Urea nitrogen [Mass/Vol] 40 mg/dL High 7-25 [facility] Comment on above: Performed By: #### L [id number] #### [facility] ([facility]) [address] [place] [address] UREA NITROGEN/CREATININE (MASS RATIO) IN SER/PLAS 6.8 Normal [facility] Comment on above: Performed By: #### L [id number] #### [facility] ([facility] [address] [place] [address] FACTOR 5 LEIDENon 07-14-2024 FACTOR V LEIDEN Negative Normal [facility] Comment on above: Result Comment: Indication for testing: Assess genetic risk for thrombosis. NEGATIVE: The factor V Leiden variant, c.1601G>A; p.[id number], was not detected. This does not exclude [...] function in the F5 gene variant c.1601G>A (p.[id number]). Legacy nomenclature: [id number] (1691G>A) CLINICAL SENSITIVITY: 20-50 percent of individuals with an isolated VTE have the FVL variant. METHODOLOGY: Polymerase chain reaction and fluorescence monitoring. ANALYTICAL SENSITIVITY AND SPECIFICITY: 99 percent. LIMITATIONS: Diagnostic errors can occur due to rare sequence variations. F5 gene mutations, other than p.[id number], will not be detected. This test was developed and its performance characteristics determined by [employer]. It has not been cleared or approved by the US Food and Drug Administration. This test was performed in a CLIA certified laboratory and is intended for clinical purposes. Counseling and informed consent are recommended for genetic testing. Consent forms are available online. Performed By: [employer] [address] [place] [address] Photographic Printer: Gage Daley MD, PhD CLIA Number: [id number] Performed By: #### L [id number] #### [facility] [address] [place] [address] FACTOR V SPECIMEN Whole Blood Normal [facility] Comment on above: Performed By: #### L [id number] #### [facility] [address] [place] [address] HEMOGLOBIN A1Con 07-14-2024 Glucose [Mass/Vol] 186 mg/dL Normal [facility] Comment on above: Performed By: #### L [id number] #### [facility] ([facility]) [address] [place] [address] HbA1c (Bld) [Mass fraction] 8.1 % High 4.0-6.0 [facility] Comment on above: Performed By: #### L [id number] #### [facility] ([facility]) [address] [place] [address] HEPATITIS A ANTIBODY, IGMon 07-14-2024 HEPATITIS A VIRUS IGM AB PRESENCE IN SER/PLAS Non-Reactive Normal Nonreactive [facility] Comment on above: Performed By: #### L [id number] #### [facility] ([facility]) [address] [place] [address] HEPATITIS B CORE ANTIBODY, I GMon 07-14-2024 HEPATITIS B VIRUS CORE IGM AB PRESENCE IN SER/PLAS BY IMMUNOASSY Negative Normal Negative [facility] Comment on above: Result Comment: INTE RPRETIVE INFORMATION: Hepatitis B Core Ab, IgM This assay should not be used for blood donor screening, associated re-entry protocols, or for screening Human Cells, Tissues and Cellular and Tissue-Based Products (HCT/P). Performed By: [employer] [address] [place] [address] Photographic Printer: Gage Daley MD, PhD CLIA Number: [id number] Performed By: #### L [id number] #### [facility] [address] [place] [address] HEPATITIS B CORE ANTIBODY, T OTALon 07-14-2024 HEPATITIS B VIRUS CORE AB (PRESENCE) IN SER/PLAS BY IMM Non-Reactive Normal Nonreactive [facility] Comment on above: Performed By: #### L [id number] #### [facility] ([facility]) [address] [place] [address] HEPATITIS B SURFACE ANTIBODY QUANTon 07-14-2024 HEPATITIS B VIRUS SURFACE AB (MIU/ML) IN SERUM 1.55 mIU/mL Normal [facility] Comment on above: Result Comment: INTE RPRETATION: NONREACTIVE <8.00 mIU/mL INDETERMINATE 8.00 - 12.00 mIU/mL REACTIVE >12 mIU/mL Performed By: #### L [id number] #### [facility] ([facility]ISTOTRAC) [address] [place] [address] [facility] HEPATITIS B SURFACE ANTIGENo n 07-14-2024 HEPATITIS B VIRUS SURFACE AG PRESENCE IN SERUM Non-Reactive Normal Nonreactive [facility] Comment on above: Performed By: #### L [id number] #### [facility] ([facility]AC) [address] [place] [address] [place] HEPATITIS C ANTIBODYon 07-14 HEPATITIS C VIRUS AB PRESENCE IN SERUM Non-Reactive Normal Nonreactive [facility] Comment on above: Performed By: #### L [id number] #### [facility] ([facility]) [address] [place] [address] HIV COMBO 4Gon 07-14-2024 HIV COMBO 4G Negative Normal Negative [facility] Comment on above: Performed By: #### L [id number] #### [facility] [address] [place] [address] HLA ABC CLASS I TYPINGon A*-1 2 Normal [facility] Comment on above: Performed By: #### L [id number] #### [facility] [address] [place] [address] A*-2 29 [facility] Comment on above: Performed By: #### L [id number] #### [facility] [address] [place] [address] B*-1 44 [facility] Comment on above: Performed By: #### L [id number] #### [facility] [address] [place] [address] B*-2 58 [facility] Comment on above: Performed By: #### L [id number] #### [facility] [address] [place] [address] BW*-1 4 [facility] Comment on above: Performed By: #### L [id number] #### [facility] [address] [place] [address] C*-1 07 [facility] Comment on above: Performed By: #### L [id number] #### [facility] [address] [place] [address] C*-2 16 [facility] Comment on above: Performed By: #### L [id number] #### [facility] [address] [place] [address] HLA ABC CLASS I TYPING TEST METHOD Class I typing by PCR-SSOP [facility] Comment on above: Performed By: #### L [id number] #### [facility] [address] [place] [address] HLA ABC TESTED DATE [facility] Comment on above: Performed By: #### L [id number] #### [facility] [address] [place] [address] CLASS II TYPINGon DPB1*-1 02:01 [facility] Comment on above: Performed By: #### L [id number] #### [facility] [address] [place] [address] DQA1*-1 03 [facility] Comment on above: Performed By: #### L [id number] #### [facility] [address] [place] [address] DQA1*-2 04 [facility] Comment on above: Performed By: #### L [id number] #### [facility] [address] [place] [address] DQB1*-1 8 [facility] Comment on above: Performed By: #### L [id number] #### [facility] [address] [place] [address] DQB1*-2 4 [facility] Comment on above: Performed By: #### L [id number] #### [facility] [address] [place] [address] DRB1*-1 4 [facility] Comment on above: Performed By: #### L [id number] #### [facility] [address] [place] [address] DRB1*-2 8 [facility] Comment on above: Performed By: #### L [id number] #### [facility] [address] [place] [address] DRB4*-1 53 [facility] Comment on above: Performed By: #### L [id number] #### [facility] [address] [place] [address] CLASS II TYPING TEST METHOD Class II typing by PCR-SSOP [facility] Comment on above: Performed By: #### L [id number] #### [facility] [address] [place] [address] TESTED DATE Normal Un [facility] Comment on above: Performed By: #### L [id number] #### [facility] [address] [place] [address] LIPID PANELon 07-14-2024 CHOL/HDL 3.5 mg/dL [facility] Comment on above: Performed By: #### L [id number] #### [facility] ([employer]) [address] [place] [address] Cholesterol [Mass/Vol] 112 mg/dL Low 120-200 [facility] Comment on above: Performed By: #### L [id number] #### [facility] ([facility]) [address] [place] [address] Magnesium [Mass/Vol] 44 mg/dL Normal 40-149 [facility] Comment on above: Result Comment: TRIG LYCERIDE REFERENCE RANGE: 20 YEARS AND OLDER CARDIOVASCULAR RISK LESS THAN 150 mg/dL LOW RISK 150 TO 199 mg/dL BORDERLINE RISK 200 mg/dL AND GREATER HIGH RISK Performed By: #### L [id number] #### [facility] ([facility]AK[facility]) [address] [place] [address] Magnesium [Mass/Vol] 71 mg/dL Normal 0-160 [facility] Comment on above: Performed By: #### L [id number] #### [facility] ([facility]ER) [address] [place] [address] Magnesium [Mass/Vol] 32 mg/dL Normal 23-92 [facility] Comment on above: Performed By: #### L [id number] #### [facility] ([facility]ER) [address] [facility] [place] [address] NON HDL CHOL. (LDL+VLDL) 80 Normal [facility] Comment on above: Performed By: #### L [id number] #### [facility] ([facility]) [address] [place] [address] TOTAL VLDL-C 9 mg/dL Normal 0-40 [facility] Comment on above: Performed By: #### L [id number] #### [facility] ([facility]ER) [address] [place] [address] Labon 07-14-2024 Lab [id number] Yoel Werner 1985 M Date Provider Department Center 07/14/2024 2245-[facility] OPD LAB RESOURCE [facility] OPD AR Medical C No family history on file Normal [facility] MANUAL DIFFERENTIALon 2023 BASOPHILS (10*3/UL) IN BLOOD BY CALCULATION 0.06 10*3/uL Normal 0.00-0.20 [facility] Comment on above: Performed By: #### L [id number] #### [facility] [address] [place] [address] BASOPHILS/100 LEUKOCYTES IN BLOOD BY AUTOMATED COUNT 1.5 % High 0.0-1.0 [facility] Comment on above: Performed By: #### L [id number] #### [facility] [address] [place] [address] EOSINOPHILS (10*3/UL) IN BLOOD BY CALCULATION 0.16 10*3/uL Normal 0.00-0.50 [facility] Comment on above: Performed By: #### L [id number] #### [facility] [address] [place] [address] EOSINOPHILS/100 LEUKOCYTES IN BLOOD BY AUTOMATED COUNT 4.1 % Normal 0.0-6.0 [facility] Comment on above: Performed By: #### L [id number] #### [facility] [address] [place] [address] IMMATURE GRANULOCYTES (10*3/UL) IN BLOOD BY CALCULATION 0.01 10*3/uL Normal 0.00-0.20 [facility] Comment on above: Performed By: #### L [id number] #### [facility] [address] [place] [address] IMMATURE GRANULOCYTES/100 LEUKOCYTES IN BLOOD BY AUTOMATED COUNT 0.3 % Normal 0.0-1.0 [facility] Comment on above: Performed By: #### L [id number] #### [facility] [address] [place] [address] LYMPHOCYTES (10*3/UL) IN BLOOD BY CALCULATION 1.08 10*3/uL Low 1.20-4.00 [facility] Comment on above: Performed By: #### L [id number] #### [facility] [address] [place] [address] LYMPHOCYTES/100 LEUKOCYTES IN BLOOD BY AUTOMATED COUNT 27.6 % Normal 20.0-45.0 [facility] Comment on above: Performed By: #### L [id number] #### [facility] [address] [place] [address] MONOCYTES (10*3/UL) IN BLOOD BY CALCUATION 0.25 10*3/uL Normal 0.10-1.00 [facility] Comment on above: Performed By: #### L [id number] #### [facility] [address] [place] [address] MONOCYTES/100 LEUKOCYTES IN BLOOD BY AUTOMATED COUNT 6.4 % Normal 5.0-12.0 [facility] Comment on above: Performed By: #### L [id number] #### [facility] [address] [place] [address] NEUTROPHILS (10*3/UL) IN BLOOD BY CALCULATION 2.4 10*3/uL Normal 1.6-7.6 [facility] Comment on above: Performed By: #### L [id number] #### [facility] [address] [place] [address] NEUTROPHILS/100 LEUKOCYTES IN BLOOD BY AUTOMATED COUNT 60.1 % Normal 40.0-72.0 [facility] Comment on above: Performed By: #### L [id number] #### [facility] [address] [place] [address] MTHFR 2 VARIANTSon 4 MTHFR INTERP See Note Normal [facility] Comment on above: Result Comment: Indication for testing: Determine genetic contribution to hyperhomocysteinemia. 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 Homozygosity for the [...] has an effect on cardiovascular disease. The [employer] Practice Guidelines indicate [...] a contributing factor to hyperhomocysteinemia. Variants Tested: c.665C>T(p.Reg215Ksz) and c.1286A>C(p.Hdp495Wtp). (legacy names C677T and I4417I, respectively). Clinical Sensitivity: Undefined; hyperhomocysteinemia is caused [...] developed and its performance characteristics determined by [employer]. It has not been cleared or approved by the [place] Food and Drug Administration. This test was performed in a CLIA certified laboratory and is intended for clinical purposes. Counseling and informed consent are recommended for genetic testing. Consent forms are available online. Performed By: [employer] [address] [place] [address] Photographic Printer: Gage Daley MD, PhD CLIA Number: [id number] Performed By: #### L [id number] #### [facility] ([facility]RAC) [address] MTHFR PCR SPECIMEN Whole Blood Normal [facility] Comment on above: Performed By: #### L [id number] #### [facility] ([facility]) [address] MTHFR VARIANT: C.1286A>C Negative Normal [facility] Comment on above: Performed By: #### L [id number] #### [facility] ([facility]) [address] [place] [address] [facility] MTHFR VARIANT: C.665C>T Homozygous Normal [facility] Comment on above: Performed By: #### L [id number] #### [facility] ([facility]) [address] [place] [place] [address] PANEL REACTIVE ANTIBODYon HOLD SPECIMEN Hold for add-ons. Normal [facility] Comment on above: Result Comment: Auto resulted. Performed By: #### L [id number] #### [facility] ([facility]) [address] PROTEIN C ACTIVITYon 024 PROTEIN C ACTUAL/NORMAL IN PPP BY COAGULATION ASSAY 89 % Normal 60-140 [facility] Comment on above: Performed By: #### L [id number] #### [facility] ([facility]AC) [address] [place] [address] [facility] PROTEIN S ACTIVITYon 024 PROTEIN S ACTUAL/NORMAL IN PPP BY COAGULATION ASSAY 83 % Normal 60-165 [facility] Comment on above: Performed By: #### L [id number] #### [facility] ([facility]RAC) [address] [place], [place] [address] PROTHROMBIN GENE MUTATIONon 07-14-2024 PROTHROMBIN (F2) [id number] VARIANT Negative Normal [facility] Comment on above: Result Comment: Indication for testing: Assess genetic risk for thrombosis. NEGATIVE: The Factor II, prothrombin T21341S mutation, was not detected. Other causes of [...] M.D., Ph.D. BACKGROUND INFORMATION: Prothrombin (F2) c.*97G>A (J02761D) Pathogenic Variant CHARACTERISTICS: The Factor II, c.*97G>A (K37052I) pathogenic variant is a common genetic risk [...] CAUSE: Homozygosity or heterozygosity for F2 c.*97G>A (V02317H). PATHOGENIC VARIANT TESTED: F2 c.*97G>A (E19415U). CLINICAL SENSITIVITY FOR VENOUS THROMBOSIS: Approximately 10 percent. METHODOLOGY: Polymerase chain reaction and fluorescence monitoring. ANALYTICAL SENSITIVITY AND SPECIFICITY: 99 percent. LIMITATIONS: Diagnostic errors can occur due to rare sequence variations. F2 gene variants, other than c.*97G>A (A22720Z), will not be detected. This test was developed and its performance characteristics determined by [employer]. It has not been cleared or approved by the [place] Food and Drug Administration. This test was performed in a CLIA certified laboratory and is intended for clinical purposes. Counseling and informed consent are recommended for genetic testing. Consent forms are available online. Performed By: [employer] [address] [place] [address] Photographic Printer: Gage Daley MD, PhD [place] Number: [id number] Performed By: #### L [id number] #### [employer]) [address] [place] [address] PT PCR SPECIMEN Whole Blood Normal [facility] Comment on above: Performed By: #### L [id number] #### [employer]) [address] [place] [address] PROTIME-INRon 07-14-2024 INR IN PPP BY COAGULATION ASSAY 1.29 High 0.90-1.10 [facility] Comment on above: Result Comment: ACCC P [...] RANGE. CHEST 1995;108:[id number]-246S. Performed By: #### L [id number] #### [facility] TISSUE [facility]YP[facility] (HISTOTRAC) [address] PROTHROMBIN TIME (PT) IN PPP BY COAGULATION ASSAY 16.0 Seconds High 12.3-14.8 [facility] Comment on above: Performed By: #### L [id number] #### [facility] TISSUE TYPING (HISTOTRAC) [address] PSA, SCREENINGon 07-14-2024 PROSTATE SPECIFIC AG (NG/ML) IN SER/PLAS 0.2 ng/mL Low 0.4-4 [facility] Comment on above: Performed By: #### L [id number] #### [facility] ([facility]ER) [address] [place] [address] SINGLE ANTIGEN CLASS Ion AB SCREEN COMMENTS No Specificites Found Normal [facility] Comment on above: Performed By: #### L [id number] #### [facility]ISSUE [facility]YP[facility] (HISTOTRAC) [address] [place] [place] [address] Performed By: #### L [id number] #### [employer] [facility] [address] [place] [address] CLASS I TESTED DATE [id number] Normal [facility] Comment on above: Performed By: #### L [id number] #### [facility] TISSUE TYPING (HISTOTRAC) [address] [facility] Comment on above: Performed By: #### L [id number] #### [facility] TISSUE [facility]YP[facility] (HISTOTRAC) [address] [place] [address] [facility] Performed By: #### L [id number] #### [facility] [address] [place] [address] SIGNED BY Signed by Govind tovar [facility] MT(ASCP), [employer] Transplant Immunology [facility] Comment on above: Result Comment: Clas s I Antigen Microbeads Performed By: #### L [id number] #### [facility] TISSUE TYP[facility] ([facility]ISTOTRAC) [address] [place] [address] [facility] Performed By: #### L [id number] #### [facility] [address] [place] [address] SINGLE ANTIGEN CLASS 1 TEST METHOD Class I Single Antigen Normal [facility] [facility] Comment on above: Performed By: #### L [id number] #### [facility] TISSUE TYPING (HISTOTRAC) [address] [place] [address] [facility] SINGLE ANTIGEN CLASS IIon CLASS II TESTED DATE [facility] Comment on above: Performed By: #### L [id number] #### [facility] [address] [place] [address] SINGLE ANTIGEN CLASS 2 TEST METHOD Class II Single Antigen Normal [facility] Comment on above: Result Comment: Clas s II Antigen Microbeads Performed By: #### L [id number] #### [facility] [address] [place] [address] TESTOSTERONE, FREE AND TOTAL , AND SHBGon 07-14-2024 SEX HORMONE BINDING GLOBULIN (NMOL/L) IN SER/PLAS 48 nmol/L Normal 17-56 [facility] Comment on above: Performed By: #### L [id number] #### [facility] [address] [place] [address] TESTOSTERONE (NG/DL) IN SER/PLAS 554 ng/dL Normal 249-836 [facility] Comment on above: Performed By: #### L [id number] #### [facility] [address] [place] [address] TESTOSTERONE FREE (NG/ML) IN SER/PLAS 92.7 pg/mL Normal 47.0-244.0 [facility] Comment on above: Result Comment: The concentration of free testosterone is derived from a mathematical expression based on the constant for the binding of testosterone to albumin and/or sex hormone binding globulin. Test Performed by [facility] [place] [address] - Released 07/14/2024 20:06 Performed By: #### L [id number] #### [facility] [address] [place] [address] TYPE AND SCREENon 07-14-2024 AB SCREEN Negative Normal [facility] Comment on above: Performed By: #### L [id number] #### [facility]) [address] [place] [address] ABO group Nom (Bld) A Normal [facility] Comment on above: Performed By: #### L [id number] #### [facility] ([facility]) [address] [place] [address] RH TYPE IN BLOOD Positive Normal [facility] Comment on above: Performed By: #### L [id number] #### [facility] ([facility]) [address] [place] [address] A1C with Estimated Average G luon 06-22-2024 Glucose [Mass/Vol] 209 mg/dL Normal [facility] Comment on above: Result Comment: PERF ORMED BY:[facility] [place], [place] [id number] MEDICAL DIRECTORLEVY GILES M.D. Performed By: #### A 1C [facility] ####[facility] [place] [address] [facility] HbA1c (Bld) [Mass fraction] 8.9 % High 4.3-5.6 [facility] Comment on above: Result Comment: Incr eased risk for diabetes: 5.7 - 6.4 diabetes: >6.4 glycemic control for adults with diabetes: <7.0 Performed By: #### A 1C [facility] ####[facility] [address] [place] [address] [facility] Alanine aminotransferase [En zymatic activity/volume] in Serum or PlasmaOrdered By: Dorene Valenzuela on 06-22-2024 ALT [Catalytic activity/Vol] Alanine aminotransferase [Enzymatic activity/volume] in Serum or Plasma 7-52 [facility] Albumin [Mass/volume] in Ser um or Plasma by Bromocresol green (BCG) dye binding methoOrdered By: Dorene Valenzuela on 06-22-2024 Albumin BCG dye [Mass/Vol] Albumin [Mass/volume] in Serum or Plasma by Bromocresol green (BCG) dye binding metho 3.5-5.7 [facility] Alkaline phosphatase [Enzyma tic activity/volume] in Serum or PlasmaOrdered By: Dorene Valenzuela on 06-22-2024 ALP [Catalytic activity/Vol] Alkaline phosphatase [Enzymatic activity/volume] in Serum or Plasma 34-104 [facility] Aspartate aminotransferase [ Enzymatic activity/volume] in Serum or PlasmaOrdered By: Dorene Valenzuela on 06-22-2024 AST [Catalytic activity/Vol] Aspartate aminotransferase [Enzymatic activity/volume] in Serum or Plasma Low 13-39 [facility] Basophils Auto (Bld) [#/Vol] Ordered By: Dorene Valenzuela on 06-22-2024 Basophils (Bld) [#/Vol] Automated basophil count 0.0-0.2 [facility] Basophils Auto (Bld) [#/Vol] on 06-22-2024 Basophils (Bld) [#/Vol] Automated basophil count 0.0-0.1 [facility] Basophils/100 WBC Auto (Bld) Ordered By: Dorene Valenzuela on 06-22-2024 Basophils/100 WBC (Bld) Automated basophil % . [facility] Basophils/100 WBC Auto (Bld) on 06-22-2024 Basophils/100 WBC (Bld) Automated basophil % 0. 2-2.0 [facility] Bilirubin.total [Mass/volume ] in Serum or PlasmaOrdered By: Dorene Valenzuela on 06-22-2024 Bilirubin [Mass/Vol] Bilirubin.total [Mass/volume] in Serum or Plasma 0.3-1.0 [facility] Blood Cultureon 06-22-2024 Bacteria identified Cx Nom (Bld) NO GROWTH 5 DAYS PERFORMED BY: [facility] [address] [place] [address] PATHOLOGIST INVESTIGATIONS DIRECTOR LEVY GILES M.D. Normal [facility] Comment on above: Performed By: #### C UBLD ####[address] Blood estimated average gluc ose determination by estimation from glycated hemoglobinOrdered By: Dorene Valenzuela on 06-22-2024 Average glucose Estimated from glycated hemoglobin (Bld) [Mass/Vol] Glucose mean value [Mass/volume] in Blood Estimated from glycated hemoglobin [facility] C-peptide measurementOrdered By: Dorene Valenzuela on 06-22-2024 C-Peptide 3.1 ng/mL Normal 1.1-4.4 [facility] Comment on above: C-Peptide reference interval is for fasting patients.Performed at: - Lab[address] [id number] Director: Pablito Alexander PhD, Phone: [phone] Result Comment: C-Pe ptide reference interval is for fasting patients. Performed at: [facility] [address] [id number] Relay Assembler: Pablito Alexander PhD, Phone: [phone] BY:[facility]OOKLYNR[address]ríguezEsaWO[place], [place] [phone] MEDICAL DIRECTORLEVY GILES M.D. Performed By: #### C BC, CMP ####[address]#### CPEP ####[facility] , C-peptide measurement 3.1 ng/mL 1.1-4.4 [facility] Calcium [Mass/volume] in Ser um or PlasmaOrdered By: Dorene Valenzuela on 06-22-2024 Calcium [Mass/Vol] Calcium [Mass/volume ] in Serum or Plasma Low 8.6-10.3 [facility] Carbon dioxide, total [Moles /volume] in Serum or PlasmaOrdered By: Dorene Hernandez on 06-22-2024 CO2 [Moles/Vol] Carbon dioxide, tota l [Moles/volume] in Serum or Plasma 21.0-31.0 [facility] Chloride [Moles/volume] in S gretta or PlasmaOrdered By: Dorene Valenzuela on 06-22-2024 Chloride [Moles/Vol] Chloride [Moles/vol ume] in Serum or Plasma Low 98-107 [facility] Complete Blood Count Auto Di ffon 06-22-2024 Basophils (Bld) [#/Vol] 0.1 10*3/uL Normal 0.0-0.2 [facility] Comment on above: Result Comment: PERF ORMED BY:[address] [place], [place] [id number] MEDICAL DIRECTORLEVY GILES M.D. Performed By: #### C BC, CMP ####[address]#### CPEP ####[facility] , Basophils/100 WBC (Bld) 1.4 % Normal . T julianna [facility] Comment on above: Performed By: #### C BC, CMP ####[address]#### CPEP ####[facility] , Eosinophils (Bld) [#/Vol] 0.1 10*3/uL Normal 0.0-0.45 [facility] Comment on above: Performed By: #### C BC, CMP ####[address]#### CPEP ####[facility] , Eosinophils/100 WBC (Bld) 0.9 % Normal . [facility] Comment on above: Performed By: #### C BC, CMP ####[address]#### CPEP ####[facility] , Erythrocyte distribution width (RBC) [Ratio] 14.2 % Normal 12.0-14.8 [facility] Comment on above: Performed By: #### C BC, CMP ####[place] [address] [place]#### CPEP ####[facility] , Hematocrit (Bld) [Volume fraction] 32.6 % Low 38.8-50.0 [facility] Comment on above: Performed By: #### C BC, CMP ####[address]#### CPEP ####[facility] , Hemoglobin (Bld) [Mass/Vol] 11.1 g/dL Low 13.0-17.0 [facility] Comment on above: Performed By: #### C BC, CMP ####[address]#### CPEP ####[facility] , Lymphocytes (Bld) [#/Vol] 0.6 10*3/uL Low 1.00-4.8 [facility] Comment on above: Performed By: #### C BC, CMP ####[place] [address] [place]#### CPEP ####[facility] , Lymphocytes/100 WBC (Bld) 7.9 % Normal . [facility] Comment on above: Performed By: #### C BC, CMP ####[place] [address] [place]#### CPEP ####[facility] , MCH (RBC) [Entitic mass] 30.0 pg Normal 27.5-35.2 [facility] Comment on above: Performed By: #### C BC, CMP ####[place] [address] [place]#### CPEP ####[facility] , MCV (RBC) [Entitic vol] 87.9 fL Normal 83.5-101 [facility] Comment on above: Performed By: #### C BC, CMP ####[place] [address] [place]#### CPEP ####[facility] , Mean Corpuscular HGB Conc 34.1 g/dL Normal 32.5-35.6 [facility] Comment on above: Performed By: #### C BC, CMP ####[address]#### CPEP ####[facility] , Monocytes (Bld) [#/Vol] 0.2 10*3/uL Normal 0.0-0.8 [facility] Comment on above: Performed By: #### C BC, CMP ####[place] [address] [place]#### CPEP ####[facility] , Monocytes/100 WBC (Bld) 2.2 % Normal . [facility] Comment on above: Performed By: #### C BC, CMP ####[place] [address] [place]#### CPEP ####[facility] , Neutrophils (Bld) [#/Vol] 6.2 10*3/uL Normal 1.8-7.7 [facility] Comment on above: Performed By: #### C BC, CMP ####[place] [address] [place]#### CPEP ####[facility] , Neutrophils/100 WBC (Bld) 87.6 % Normal . [facility] Comment on above: Performed By: #### C BC, CMP ####[place] [address] [place]#### CPEP ####[facility] , NRBC% 0.1 /100{WBC} Normal 0-0.5 [facility] Comment on above: Performed By: #### C BC, CMP ####[place] [address] [place]#### CPEP ####[facility] , Platelet mean volume (Bld) [Entitic vol] 8.4 fL Normal 6.6-10.1 [facility] Comment on above: Performed By: #### C BC, CMP ####[place] [address] [place]#### CPEP ####[facility] , Platelets (Bld) [#/Vol] 98 10*3/uL Low 150-450 [facility] Comment on above: Performed By: #### C BC, CMP ####[place] [address] [place]#### CPEP ####[facility] , RBC (Bld) [#/Vol] 3.71 10*6/uL Low 3.90-5.60 [facility] Comment on above: Performed By: #### C BC, CMP ####[place] [address] [place]#### CPEP ####[facility] , WBC (Bld) [#/Vol] 7.1 10*3/uL Normal 4.1-10.5 [facility] Comment on above: Performed By: #### C BC, CMP ####[place] [address] [place]#### CPEP ####[facility] , Comprehensive Metabolic Pane dioni 06-22-2024 Albumin [Mass/Vol] 3.5 g/dL Normal 3.5-5.7 [facility] Comment on above: Performed By: #### C BC, CMP ####[place] [address] [place]#### CPEP ####[facility] , Albumin/Globulin [Mass ratio] 1.3 {ratio} Normal [facility] Comment on above: Performed By: #### C BC, CMP ####[place] [address] [place]#### CPEP ####[facility] , ALP [Catalytic activity/Vol] 69 U/L Normal 34-104 [facility] Comment on above: Performed By: #### C BC, CMP ####[place] [address] [place]#### CPEP ####[facility] , ALT [Catalytic activity/Vol] 9 U/L Normal 7-52 [facility] Comment on above: Performed By: #### C BC, CMP ####[address]#### CPEP ####[facility] , Anion gap [Moles/Vol] 10.8 mmol/L Normal 6.0-15.0 [facility] Comment on above: Performed By: #### C BC, CMP ####[place] [address] [place]#### CPEP ####[facility] , AST [Catalytic activity/Vol] 12 U/L Low 13-39 [facility] Comment on above: Performed By: #### C BC, CMP ####[place] [address] [place]#### CPEP ####[facility] , Bilirubin [Mass/Vol] 0.6 mg/dL Normal 0.3-1.0 [facility] Comment on above: Performed By: #### C BC, CMP ####[facility] [address]#### CPEP ####[facility] , Calcium [Mass/Vol] 7.7 mg/dL Low 8.6-10.3 [facility] Comment on above: Performed By: #### C BC, CMP ####[address]#### CPEP ####[facility] , Chloride [Moles/Vol] 91 mmol/L Low 98-107 [facility] Comment on above: Performed By: #### C BC, CMP ####[address]#### CPEP ####[facility] , CO2 [Moles/Vol] 27.6 mmol/L Normal 21.0-31.0 [facility] Comment on above: Performed By: #### C BC, CMP ####[address]#### CPEP ####[facility] , Creatinine [Mass/Vol] 4.14 mg/dL High 0.70-1.30 [facility] Comment on above: Performed By: #### C BC, CMP ####[address]#### CPEP ####[facility] , Creatinine Clr Calc Pharmacy 24.94 Normal [facility] Comment on above: Result Comment: PERF ORMED BY:[address] [place], [place] [id number] MEDICAL LEONELA GILES M.D. Performed By: #### C BC, CMP ####[address]#### CPEP ####[facility] , GFR/1.73 sq M.predicted MDRD (S/P/Bld) [Vol rate/Area] 17.850 mL/min/{1.73_m2} Normal [facility] Comment on above: Performed By: #### C BC, CMP ####[place] [address] [place]#### CPEP ####[facility] , Globulin (S) [Mass/Vol] 2.8 g/dL Normal T [facility] Comment on above: Performed By: #### C BC, CMP ####[place] [address] [place]#### CPEP ####[facility] , Glucose [Mass/Vol] 452 mg/dL High 70-100 [facility] Comment on above: Result Comment: [place] Glucose Reference Range is dependent on time and content of last meal. Glucose of more than 200 mg/dL in a nonstressed, ambulatory subject supports the diagnosis of Diabetes Mellitus. ADA recommended reference range Performed By: #### C BC, CMP ####[place] [address] [place]#### CPEP ####[facility] , Potassium [Moles/Vol] 3.4 mmol/L Low 3.5-5.1 [facility] Comment on above: Performed By: #### C BC, CMP ####[place] [address] [place]#### CPEP ####[facility] , Protein [Mass/Vol] 6.3 g/dL Low 6.4-8.9 [facility] Comment on above: Performed By: #### C BC, CMP ####[place] [address] [place]#### CPEP ####[facility] , Sodium [Moles/Vol] 126 mmol/L Low 136-145 [facility] Comment on above: Performed By: #### C BC, CMP ####[place] [address] [place]#### CPEP ####[facility] , Urea nitrogen [Mass/Vol] 27 mg/dL High 7-25 [facility] Comment on above: Performed By: #### C BC, CMP ####[facility] [id number] [place] [id number] [facility]#### CPEP ####[facility] , Creatinine [Mass/volume] in Serum or PlasmaOrdered By: Dorene Valenzuela on 06-22-2024 Creatinine [Mass/Vol] Creatinine [Mass/v olume] in Serum or Plasma High 0.70-1.30 [facility] Eosinophils Auto (Bld) [#/Vo l]Ordered By: Dorene Valenzuela on 06-22-2024 Eosinophils (Bld) [#/Vol] Automated eosinophil count 0.0-0.45 [facility] Eosinophils/100 WBC Auto (Bl d)Ordered By: Dorene Valenzuela on 06-22-2024 Eosinophils/100 WBC (Bld) Automated eosinophil % . [facility] Eosinophils/100 WBC Auto (Bl d)on 06-22-2024 Eosinophils/100 WBC (Bld) Automated eosinophil % 0.9-7.0 [facility] Erythrocyte distribution wid th Auto (RBC) [Ratio]Ordered By: Dorene Valenzuela on 06-22-2024 Erythrocyte distribution width (RBC) [Ratio] Erythrocyte distribution width [Ratio] by Automated count 12.0-14.8 [facility] Erythrocyte distribution wid th Auto (RBC) [Ratio]on 06-22-2024 Erythrocyte distribution width (RBC) [Ratio] Erythrocyte distribution width [Ratio] by Automated count 11.0-15.0 [facility] Estimated glomerular filtrat ion rate (GFR) non- Americanon 06-22-2024 GFR/1.73 sq M.predicted among non-blacks MDRD (S/P/Bld) [Vol rate/Area] Estimated glomerular filtration rate (GFR) non- Low >=60 mL/min/1.73m 2 [facility] Globulin Calc (S) [Mass/Vol] Ordered By: Dorene Valenzuela on 06-22-2024 Globulin (S) [Mass/Vol] Serum globulin measurement by calculation (mass/volume) [facility] Globulin Calc (S) [Mass/Vol] on 06-22-2024 Globulin (S) [Mass/Vol] Serum globulin measurement by calculation (mass/volume) [facility] Glucose Glucometer (BldC) [M ass/Vol]Ordered By: Dorene Valenzuela on 06-22-2024 Glucose [Mass/Vol] Capillary blood gluc ose measurement by glucometer (mass/volume) [facility] Comment on above: Random Glucose Refer ence Range is dependent on time and content of last meal. Glucose of more than 200 mg/dL in a nonstressed, ambulatory subject supports the diagnosis of Diabetes Mellitus. Glucose Poct Glucometerson 1 08-22-2023 Glucose [Mass/Vol] 285 mg/dL Normal [facility] Comment on above: Result Comment: [place] om Glucose Reference Range is dependent on time and content of last meal. Glucose of more than 200 mg/dL in a nonstressed, ambulatory subject supports the diagnosis of Diabetes Mellitus.PERFORMED BY:[place] [id number] [place], [place] [phone] MEDICAL DIRECTORLEVY GILES M.D. Performed By: #### G LULS ####[facility] Care testing, Glucose [Mass/volume] in Ser um or PlasmaOrdered By: Dorene Valenzuela on 06-22-2024 Glucose [Mass/Vol] Glucose [Mass/volume ] in Serum or Plasma High 70-100 [facility] Comment on above: ADA recommended refe rence rangeRandom Glucose Reference Range is dependent on time and content of last meal. Glucose of more than 200 mg/dL in a nonstressed, ambulatory subject supports the diagnosis of Diabetes Mellitus. Hematocrit Auto (Bld) [Volum e fraction]Ordered By: Dorene Valenzuela on 06-22-2024 Hematocrit (Bld) [Volume fraction] Hematocrit [Volume Fraction] of Blood by Automated count Low 38.8-50.0 [facility] Hematocrit Auto (Bld) [Volum e fraction]on 06-22-2024 Hematocrit (Bld) [Volume fraction] Hematocrit [Volume Fraction] of Blood by Automated count Low 42.0-54.0 [facility] Hemoglobin A1c/Hemoglobin.to albert in BloodOrdered By: Dorene Valenzuela on 06-22-2024 HbA1c (Bld) [Mass fraction] Hemoglobin A1c percentage High 4.3-5.6 [facility] Comment on above: Increased risk for d iabetes: 5.7 - 6.4diabetes: >6.4glycemic control for adults with diabetes: <7.0 Hemoglobin [Mass/volume] in BloodOrdered By: Dorene Valenzuela on 06-22-2024 Hemoglobin (Bld) [Mass/Vol] Hemoglobin [Mass/volume] in Blood Low 13.0-17.0 [facility] Hemoglobin [Mass/volume] in Bloodon 06-22-2024 Hemoglobin (Bld) [Mass/Vol] Hemoglobin [Mass/volume] in Blood Low 14.0-18.0 [facility] Laboratory - Chemistry and C hemistry - challengeon 06-22-2024 Bilirubin Ql (U) Negative NEGATIVE [facility] Glucose (U) [Mass/Vol] 500 mg/dL Abnormal NEGATIVE [facility] Ketones Ql (U) Negative NEGATIVE [facility] pH (U) 7.5 [pH] 5.0-9.0 [facility] Specific gravity (U) [Rel density] 1.020 1.005-1.025 [facility] Urobilinogen Qn (U) 0.2 {Tawana'U}/dL 0.2-1.0 [facility] Lactate [Moles/Vol] 0.8 mmol/L 0.4-2.0 [facility] Albumin [Mass/Vol] 3.7 g/dL 3.4-5.0 [facility] ALP [Catalytic activity/Vol] 100 U/L 46-116 [facility] ALT [Catalytic activity/Vol] 11 U/L Low 16-63 [facility] AST [Catalytic activity/Vol] 16 U/L 15-37 [facility] Bilirubin [Mass/Vol] 0.6 mg/dL 0.2-1.0 [facility] Calcium [Mass/Vol] 9.4 mg/dL 8.5-10.1 [facility] Chloride [Moles/Vol] 102 mmol/L 98-107 [facility] CO2 [Moles/Vol] 22.7 mmol/L 21.0-32.0 [facility] Creatinine [Mass/Vol] 8.68 mg/dL Critically high 0.70-1.30 [facility] Comment on above: RESULTS CALLED TO ALYSIA MATAMOROS RN GFR/1.73 sq M.predicted MDRD (S/P/Bld) [Vol rate/Area] 8 mL/min/{1.73_m2} Low >=60 mL/min/1.73m 2 [facility] Glucose [Mass/Vol] 127 mg/dL High 74-106 [facility] Lipase [Catalytic activity/Vol] 12.0 U/L Low 16.0-77.0 [facility] Magnesium [Mass/Vol] 2.3 mg/dL 1.8-2.4 [facility] Potassium [Moles/Vol] 4.4 mmol/L 3.5-5.1 [facility] Protein [Mass/Vol] 7.9 g/dL 6.4-8.2 [facility] Sodium [Moles/Vol] 142 mmol/L 136-145 [facility] Urea nitrogen [Mass/Vol] 63.0 mg/dL High 7.0-18.0 [facility] Urea nitrogen/Creatinine [Mass ratio] 7.3 mg/mg [facility] Laboratory - Hematology and Cell countson 06-22-2024 Immature granulocytes/100 WBC (Bld) 0.1 % 0.0-0.5 [facility] - Microbiology an d Antimicrobial susceptibilityOrdered By: Dorene Valenzuela on 06-22-2024 Bacteria identified Cx Nom (Bld) NO GROWTH 5 DAYS [facility] - Specimen inform ationon 06-22-2024 Appearance (U) CLEAR CLEAR [facility] Color (U) LT. YELLOW YELLOW [facility] - Urinalysison Leukocyte esterase Test strip Ql (U) Negative NEGATIVE [facility] Mucus Ql (Urine sed) SMALL Abnormal NONE SEEN [facility] Nitrite Ql (U) Negative NEGATIVE [facility] Protein Ql (U) >=300 mg/dL Abnormal NEG/TRACE [facility] Leukocytes [#/volume] correc celena for nucleated erythrocytes in Blood by Automated counOrdered By: Dorene Valenzuela on 06-22-2024 WBC corrected for nucl RBC Auto (Bld) [#/Vol] Leukocytes [#/volume] corrected for nucleated erythrocytes in Blood by Automated coun 4.1-10.5 [facility] Leukocytes [#/volume] correc celena for nucleated erythrocytes in Blood by Automated counon 06-22-2024 WBC corrected for nucl RBC Auto (Bld) [#/Vol] Leukocytes [#/volume] corrected for nucleated erythrocytes in Blood by Automated coun 4.0-11.0 [facility] Lymphocytes Auto (Bld) [#/Vo l]Ordered By: Dorene Valenzuela on 06-22-2024 Lymphocytes (Bld) [#/Vol] Lymphocytes [#/volume] in Blood by Automated count Low 1.00-4.8 [facility] Lymphocytes Auto (Bld) [#/Vo l]on 06-22-2024 Lymphocytes (Bld) [#/Vol] Lymphocytes [#/volume] in Blood by Automated count Low 1.2-3.8 [facility] Lymphocytes/100 WBC Auto (Bl d)Ordered By: Dorene Valenzuela on 06-22-2024 Lymphocytes/100 WBC (Bld) Lymphocytes/100 leukocytes in Blood by Automated count . [facility] Lymphocytes/100 WBC Auto (Bl d)on 06-22-2024 Lymphocytes/100 WBC (Bld) Lymphocytes/100 leukocytes in Blood by Automated count Low 20.5-60.0 [facility] MCH Auto (RBC) [Entitic mass ]Ordered By: Dorene Valenzuela on 06-22-2024 MCH (RBC) [Entitic mass] MCH [Entitic mass] by Automated count 27.5-35.2 [facility] MCH Auto (RBC) [Entitic mass ]on 06-22-2024 MCH (RBC) [Entitic mass] MCH [Entitic mass] by Automated count 25.9-34.0 [facility] MCHC Auto (RBC) [Mass/Vol]Or dered By: Dorene Valenzuela on 06-22-2024 MCHC (RBC) [Mass/Vol] MCHC [Mass/volume] by Automated count 32.5-35.6 [facility] MCHC Auto (RBC) [Mass/Vol]on 06-22-2024 MCHC (RBC) [Mass/Vol] MCHC [Mass/volume] by Automated count 29.9-35.2 [facility] MCV Auto (RBC) [Entitic vol] Ordered By: Dorene Valenzuela on 06-22-2024 MCV (RBC) [Entitic vol] MCV [Entitic vol ume] by Automated count 83.5-101 [facility] MCV Auto (RBC) [Entitic vol] on 06-22-2024 MCV (RBC) [Entitic vol] MCV [Entitic vol ume] by Automated count 80.0-94.0 [facility] Monocytes Auto (Bld) [#/Vol] Ordered By: Dorene Valenzuela on 06-22-2024 Monocytes (Bld) [#/Vol] Automated blood monocyte count 0.0-0.8 [facility] Monocytes Auto (Bld) [#/Vol] on 06-22-2024 Monocytes (Bld) [#/Vol] Automated blood monocyte count Low 0.3-0.8 [facility] Monocytes/100 WBC Auto (Bld) Ordered By: Dorene Valenzuela on 06-22-2024 Monocytes/100 WBC (Bld) Automated monocyte % . [facility] Monocytes/100 WBC Auto (Bld) on 06-22-2024 Monocytes/100 WBC (Bld) Automated monocyte % 1. 7-12.0 [facility] Neutrophils Auto (Bld) [#/Vo l]Ordered By: Dorene Valenzuela on 06-22-2024 Neutrophils (Bld) [#/Vol] Neutrophils [#/volume] in Blood by Automated count 1.8-7.7 [facility] Neutrophils Auto (Bld) [#/Vo l]on 06-22-2024 Neutrophils (Bld) [#/Vol] Neutrophils [#/volume] in Blood by Automated count 1.4-6.5 [facility] Neutrophils/100 WBC Auto (Bl d)Ordered By: Dorene Valenzuela on 06-22-2024 Neutrophils/100 WBC (Bld) Automated neutrophil % . [facility] Neutrophils/100 WBC Auto (Bl d)on 06-22-2024 Neutrophils/100 WBC (Bld) Automated neutrophil % High 43.0-75.0 [facility] No Panel InformationOrdered By: Dorene Valenzuela on 06-22-2024 Estimated GFR (CKD-EPI) 17.850 mL/Min [facility] Creatinine Clearance (Chem 24.94 [facility] 17.850 mL/Min [facility] 24.94 [facility] NO GROWTH 5 DAYS [facility] No Panel Informationon 06-22 Urine Bacteria TRACE #/HPF Abnormal NONE SEEN [facility] Urine Microscopic Review YES [facility] Urine Occult Blood SMALL Abnormal NEGATIVE [facility] Urine Other Casts NONE SEEN #/LPF NONE SEEN [facility] Urine Other Crystals None Seen #/HPF None Seen [facility] Urine RBC 5-10 #/HPF Abnormal 0-2 [facility] Urine Squamous Epithelial Cells RARE #/LPF NONE/RARE [facility] Urine WBC 0-2 #/HPF Abnormal NONE SEEN [facility] NONE SEEN #/LPF NONE SEEN [facility] YES [facility] None Seen #/HPF None Seen [facility] Negative NEGATIVE [facility] TRACE #/HPF Abnormal NONE SEEN [facility] SMALL Abnormal NONE SEEN [facility] CLEAR CLEAR [facility] 5-10 #/HPF Abnormal 0-2 [facility] LT. YELLOW YELLOW [facility] RARE #/LPF NONE/RARE [facility] 500 mg/dL Abnormal NEGATIVE [facility] 0-2 #/HPF Abnormal NONE SEEN [facility] 7.5 5.0-9.0 [facility] >=300 mg/dL Abnormal NEG/TRACE [facility] 1.020 1.005-1.025 [facility] 0.2 EU/dL 0.2-1.0 [facility] 0.8 mmol/L 0.4-2.0 [facility] Eosinophils # (Auto) 0.3 10 3/uL 0.0-0.7 [facility] Ethyl Alcohol Level <3 mg/dL [facility] Comment on above: NOTE: 80 mg/dl is th e legal limit for a blood alcohol level Immature Granulocyte # (Auto) 0.01 10 3/uL 0.00-0.03 [facility] Phosphorus Level 5.4 mg/dL High 2.6-4.7 [facility] Troponin I High Sensitivity 50.4 pg/mL 4.0-76.1 [facility] Comment on above: CUT-OFF POINTS HAVE [...] Partial Pressure CO2 52.6 mm[Hg] High 40.0-52.0 [facility] Venous Blood pH 7.259 Low 7.330-7.430 [facility] 52.6 mm[Hg] High 40.0-52.0 [facility] 5.4 mg/dL High 2.6-4.7 [facility] <3 mg/dL [facility] 12.0 U/L Low 16.0-77.0 [facility] 50.4 pg/mL 4.0-76.1 [facility] 2.3 mg/dL 1.8-2.4 [facility] 7.259 Low 7.330-7.430 [facility] 0.3 10 3/uL 0.0-0.7 [facility] 3.7 g/dL 3.4-5.0 [facility] 100 U/L 46-116 [facility] 11 U/L Low 16-63 [facility] 16 U/L 15-37 [facility] 0.01 10 3/uL 0.00-0.03 [facility] 7.3 [facility] 0.1 % 0.0-0.5 [facility] 63.0 mg/dL High 7.0-18.0 [facility] 9.4 mg/dL 8.5-10.1 [facility] 102 mmol/L 98-107 [facility] 22.7 mmol/L 21.0-32.0 [facility] 8.68 mg/dL Critically high 0.70-1.30 [facility] 8 Low >=60 mL/min/1.73m 2 [facility] 127 mg/dL High 74-106 [facility] 4.4 mmol/L 3.5-5.1 [facility] 142 mmol/L 136-145 [facility] 0.6 mg/dL 0.2-1.0 [facility] 7.9 g/dL 6.4-8.2 [facility] Nucleated erythrocytes [Pres ence] in Blood by Automated countOrdered By: Dorene Valenzuela on 06-22-2024 Nucleated RBC Auto Ql (Bld) Nucleated erythrocytes [Presence] in Blood by Automated count 0-0.5 [facility] Platelet mean volume Auto (B ld) [Entitic vol]Ordered By: Dorene Valenzuela on 06-22-2024 Platelet mean volume (Bld) [Entitic vol] Platelet mean volume [Entitic volume] in Blood by Automated count 6.6-10.1 [facility] Platelet mean volume Auto (B ld) [Entitic vol]on 06-22-2024 Platelet mean volume (Bld) [Entitic vol] Platelet mean volume [Entitic volume] in Blood by Automated count 9.5-13.5 [facility] Platelets Auto (Bld) [#/Vol] Ordered By: Dorene Valenzuela on 06-22-2024 Platelets (Bld) [#/Vol] Platelets [#/vol ume] in Blood by Automated count Low 150-450 [facility] Platelets Auto (Bld) [#/Vol] on 06-22-2024 Platelets (Bld) [#/Vol] Platelets [#/vol ume] in Blood by Automated count Low 150-450 [facility] Potassium [Moles/volume] in Serum or PlasmaOrdered By: Dorene Valenzuela on 06-22-2024 Potassium [Moles/Vol] Potassium [Moles/v olume] in Serum or Plasma Low 3.5-5.1 [facility] Protein [Mass/volume] in Ser um or PlasmaOrdered By: Dorene Valenzuela on 06-22-2024 Protein [Mass/Vol] Protein [Mass/volume ] in Serum or Plasma Low 6.4-8.9 [facility] RBC Auto (Bld) [#/Vol]Ordere d By: Dorene Valenzuela on 06-22-2024 RBC (Bld) [#/Vol] Erythrocytes [#/volu me] in Blood by Automated count Low 3.90-5.60 [facility] RBC Auto (Bld) [#/Vol]on RBC (Bld) [#/Vol] Erythrocytes [#/volu me] in Blood by Automated count Low 4.70-6.10 [facility] Serum or plasma albumin/glob ulin mass ratioOrdered By: Dorene Valenzuela on 06-22-2024 Albumin/Globulin [Mass ratio] Serum or plasma albumin/globulin mass ratio [facility] Serum or plasma albumin/glob ulin mass ratioon 06-22-2024 Albumin/Globulin [Mass ratio] Serum or plasma albumin/globulin mass ratio [facility] Serum or plasma anion gap de terminationOrdered By: Dorene Valenzuela on 06-22-2024 Anion gap [Moles/Vol] Serum or plasma an ion gap determination 6.0-15.0 [facility] Serum or plasma anion gap de terminationon 06-22-2024 Anion gap [Moles/Vol] Serum or plasma an ion gap determination [facility] Sodium [Moles/volume] in Ser um or PlasmaOrdered By: Dorene Valenzuela on 06-22-2024 Sodium [Moles/Vol] Sodium [Moles/volume ] in Serum or Plasma Low 136-145 [facility] Urea nitrogen [Mass/volume] in Serum or PlasmaOrdered By: Dorene Valenzuela on 06-22-2024 Urea nitrogen [Mass/Vol] Urea nitrogen [Mass/volume] in Serum or Plasma High 7-25 [facility] WBC Auto (Bld) [#/Vol]Ordere d By: Dorene Valenzuela on 06-22-2024 WBC (Bld) [#/Vol] Leukocytes [#/volume ] in Blood by Automated count 4.1-10.5 [facility] Basophils Auto (Bld) [#/Vol] Ordered By: Kim Renteria on 03-10-2024 Basophils (Bld) [#/Vol] 0.1 10*3/uL 0.0-0.2 [facility] Basophils/100 WBC Auto (Bld) Ordered By: Kim Renteria on 03-10-2024 Basophils/100 WBC (Bld) 0.6 % . [facility] Calcium [Mass/volume] in Ser um or PlasmaOrdered By: iKm Renteria on 03-10-2024 Calcium [Mass/Vol] 8.7 mg/dL 8.6-10.3 [facility] Carbon dioxide, total [Moles /volume] in Serum or PlasmaOrdered By: Kim Renteria on 03-10-2024 CO2 [Moles/Vol] 28.2 mmol/L 21.0-31.0 [facility] Chloride [Moles/volume] in S gretta or PlasmaOrdered By: Kim Renteria on 03-10-2024 Chloride [Moles/Vol] 94 mmol/L Low 98-107 [facility] Creatinine [Mass/volume] in Serum or PlasmaOrdered By: Kim Renteria on 03-10-2024 Creatinine [Mass/Vol] 4.66 mg/dL High 0.70-1.30 [facility] Comment on above: Delta: 6.87 on 03/09-0555 Eosinophils Auto (Bld) [#/Vo l]Ordered By: Kim Renteria on 03-10-2024 Eosinophils (Bld) [#/Vol] 0.1 10*3/uL 0.0-0.45 [facility] Eosinophils/100 WBC Auto (Bl d)Ordered By: Kim Renteria on 03-10-2024 Eosinophils/100 WBC (Bld) 0.9 % . [facility] Erythrocyte distribution wid th Auto (RBC) [Ratio]Ordered By: Kim Renteria on 03-10-2024 Erythrocyte distribution width (RBC) [Ratio] 15.4 % High 12.0-14.8 [facility] Glucose Glucometer (BldC) [M ass/Vol]Ordered By: Kim Renteria on 03-10-2024 Glucose [Mass/Vol] 277 mg/dL [facility] Comment on above: Random Glucose Refer ence Range is dependent on time and content of last meal. Glucose of more than 200 mg/dL in a nonstressed, ambulatory subject supports the diagnosis of Diabetes Mellitus. Glucose [Mass/volume] in Ser um or PlasmaOrdered By: Kim Renteria on 03-10-2024 Glucose [Mass/Vol] 120 mg/dL High 70-100 [facility] Comment on above: Delta: 973 on -1006ADA recommended reference rangeRandom Glucose Reference Range is dependent on time and content of last meal. Glucose of more than 200 mg/dL in a nonstressed, ambulatory subject supports the diagnosis of Diabetes Mellitus. Hematocrit Auto (Bld) [Volum e fraction]Ordered By: Kim Renteria on 03-10-2024 Hematocrit (Bld) [Volume fraction] 32.6 % Low 38.8-50.0 [facility] Hemoglobin [Mass/volume] in BloodOrdered By: Kim Renteria on 03-10-2024 Hemoglobin (Bld) [Mass/Vol] 11.2 g/dL Low 13.0-17.0 [facility] Leukocytes [#/volume] correc celena for nucleated erythrocytes in Blood by Automated counOrdered By: Kim Renteria on 03-10-2024 WBC corrected for nucl RBC Auto (Bld) [#/Vol] 15.4 10*3/uL High 4.1-10.5 [facility] Lymphocytes Auto (Bld) [#/Vo l]Ordered By: Kim Renteria on 03-10-2024 Lymphocytes (Bld) [#/Vol] 1.8 10*3/uL 1.00-4.8 [facility] Lymphocytes/100 WBC Auto (Bl d)Ordered By: Kim Renteria on 03-10-2024 Lymphocytes/100 WBC (Bld) 11.5 % . [facility] MCH Auto (RBC) [Entitic mass ]Ordered By: Kim Renteria on 03-10-2024 MCH (RBC) [Entitic mass] 30.7 pg 27.5-35.2 [facility] MCHC Auto (RBC) [Mass/Vol]Or dered By: Kim Renteria on 03-10-2024 MCHC (RBC) [Mass/Vol] 34.4 g/dL 32.5-35.6 [facility] MCV Auto (RBC) [Entitic vol] Ordered By: Kim Renteria on 03-10-2024 MCV (RBC) [Entitic vol] 89.2 fL 83.5-101 [facility] Monocytes Auto (Bld) [#/Vol] Ordered By: Kim Renteria on 03-10-2024 Monocytes (Bld) [#/Vol] 0.8 10*3/uL 0.0-0.8 [facility] Monocytes/100 WBC Auto (Bld) Ordered By: Kim Renteria on 03-10-2024 Monocytes/100 WBC (Bld) 5.2 % . [facility] Neutrophils Auto (Bld) [#/Vo l]Ordered By: Kim Renteria on 03-10-2024 Neutrophils (Bld) [#/Vol] 12.6 10*3/uL High 1.8-7.7 [facility] Neutrophils/100 WBC Auto (Bl d)Ordered By: Kim Renteria on 03-10-2024 Neutrophils/100 WBC (Bld) 81.8 % . [facility] No Panel InformationOrdered By: Kim Renteria on 03-10-2024 Bedside Glucose Comment Glu2: cleaned meter [facility] Estimated GFR (CKD-EPI) 15.487 mL/Min [facility] Creatinine Clearance (Chem 23.21 [facility] Nucleated erythrocytes [Pres ence] in Blood by Automated countOrdered By: Kim Renteria on 03-10-2024 Nucleated RBC Auto Ql (Bld) 0.0 /100{WBC} 0-0.5 [facility] Platelet mean volume Auto (B ld) [Entitic vol]Ordered By: Kim Renteria on 03-10-2024 Platelet mean volume (Bld) [Entitic vol] 8.7 fL 6.6-10.1 [facility] Platelets Auto (Bld) [#/Vol] Ordered By: Kim Renteria on 03-10-2024 Platelets (Bld) [#/Vol] 193 10*3/uL 150-450 [facility] Potassium [Moles/volume] in Serum or PlasmaOrdered By: Kim Renteria on 03-10-2024 Potassium [Moles/Vol] 4.1 mmol/L 3.5-5.1 [facility] Comment on above: Delta: 5.7 on -0555 RBC Auto (Bld) [#/Vol]Ordere d By: Kim Renteria on 03-10-2024 RBC (Bld) [#/Vol] 3.65 10*6/uL Low 3.90-5.60 [facility] Serum or plasma anion gap de terminationOrdered By: Kim Renteria on 03-10-2024 Anion gap [Moles/Vol] 13.9 mmol/L 6.0-15.0 [facility] Sodium [Moles/volume] in Ser um or PlasmaOrdered By: Kim Renteria on 03-10-2024 Sodium [Moles/Vol] 132 mmol/L Low 136-145 [facility] Comment on above: Delta: 116 on Urea nitrogen [Mass/volume] in Serum or PlasmaOrdered By: Kim Renteria on 03-10-2024 Urea nitrogen [Mass/Vol] 37 mg/dL High 7-25 [facility] Comment on above: Delta: 68 on 4-0555 WBC Auto (Bld) [#/Vol]Ordere d By: Kim Renteria on 03-10-2024 WBC (Bld) [#/Vol] 15.4 10*3/uL High 4.1-10.5 [facility] Alanine aminotransferase [En zymatic activity/volume] in Serum or PlasmaOrdered By: Romain Roy on 03-09-2024 ALT [Catalytic activity/Vol] 8 U/L 7-52 [facility] Albumin [Mass/volume] in Ser um or Plasma by Bromocresol green (BCG) dye binding methoOrdered By: Romain Roy on 03-09-2024 Albumin BCG dye [Mass/Vol] 4.0 g/dL 3.5-5.7 [facility] Alkaline phosphatase [Enzyma tic activity/volume] in Serum or PlasmaOrdered By: Romain Roy on 03-09-2024 ALP [Catalytic activity/Vol] 73 U/L 34-104 [facility] Aspartate aminotransferase [ Enzymatic activity/volume] in Serum or PlasmaOrdered By: Romain Roy on 03-09-2024 AST [Catalytic activity/Vol] 11 U/L Low 13-39 [facility] Bacteria [Presence] in Urine by AutomatedOrdered By: Hector Mann on 03-09-2024 Bacteria Auto Ql (U) Rare [HPF] None Seen [facility] Bacterial blood cultureOrder ed By: Hector Mann on 03-09-2024 Bacteria identified Cx Nom (Bld) NO GROWTH 5 DAYS [facility] Bacteria identified Cx Nom (Bld) NO GROWTH 5 DAYS [facility] Basophils Auto (Bld) [#/Vol] Ordered By: Romain Roy on 03-09-2024 Basophils (Bld) [#/Vol] 0.1 10*3/uL 0.0-0.2 [facility] Basophils/100 WBC Auto (Bld) Ordered By: Romain Roy on 03-09-2024 Basophils/100 WBC (Bld) 0.8 % . [facility] Beta hydroxybutyrate [Moles/ volume] in Serum or PlasmaOrdered By: Hector Mann on 03-09-2024 Beta hydroxybutyrate [Moles/Vol] 0.27 mmol/L 0.02-0.27 [facility] Bilirubin Test strip Ql (U)O rdered By: Hector Mann on 03-09-2024 Bilirubin Ql (U) Negative Negative [facility] Bilirubin.total [Mass/volume ] in Serum or PlasmaOrdered By: Romain Roy on 03-09-2024 Bilirubin [Mass/Vol] 0.7 mg/dL 0.3-1.0 [facility] COVID CepheidOrdered By: Praful Roy on 03-09-2024 SARS-CoV-2 (COVID-19) Ab IA Ql Negative Negative [facility] Comment on above: This is a duplicate [employer] Xpert Xpress CoV-2/Flu/RSV Plus RNA by RT-PCR result to be used for statistical tracking purpose only. SARS-CoV-2 (COVID-19) RNA HAO+probe Ql (Unsp spec) [facility] Calcium [Mass/volume] in Ser um or PlasmaOrdered By: Romain Roy on 03-09-2024 Calcium [Mass/Vol] 8.9 mg/dL 8.6-10.3 [facility] Carbon dioxide, total [Moles /volume] in Serum or PlasmaOrdered By: Romain Roy on 03-09-2024 CO2 [Moles/Vol] 20.2 mmol/L Low 21.0-31.0 [facility] Chloride [Moles/volume] in S gretta or PlasmaOrdered By: Romain Roy on 03-09-2024 Chloride [Moles/Vol] 81 mmol/L Low 98-107 [facility] Color Auto (U)Ordered By: Anton Mann on 03-09-2024 Color (U) Light-yellow Yellow [facility] Creatinine [Mass/volume] in Serum or PlasmaOrdered By: Romain Roy on 03-09-2024 Creatinine [Mass/Vol] 6.87 mg/dL High 0.70-1.30 [facility] Eosinophils Auto (Bld) [#/Vo l]Ordered By: Romain Roy on 03-09-2024 Eosinophils (Bld) [#/Vol] 0.0 10*3/uL 0.0-0.45 [facility] Eosinophils/100 WBC Auto (Bl d)Ordered By: Romain Roy on 03-09-2024 Eosinophils/100 WBC (Bld) 0.2 % . [facility] Epithelial cells.squamous [# /area] in Urine sediment by Automated countOrdered By: Hector Mann on 03-09-2024 Epithelial cells.squamous Auto (Urine sed) [#/Area] N/A [facility] Erythrocyte distribution wid th Auto (RBC) [Ratio]Ordered By: Romain Roy on 03-09-2024 Erythrocyte distribution width (RBC) [Ratio] 15.4 % High 12.0-14.8 [facility] Erythrocytes [#/area] in Uri ne sediment by Automated countOrdered By: Hector Mann on 03-09-2024 RBC Auto (Urine sed) [#/Area] 1-2 [HPF] 0-4 [facility] Globulin Calc (S) [Mass/Vol] Ordered By: Romain Roy on 03-09-2024 Globulin (S) [Mass/Vol] 3.2 g/dL [facility] Glucose Glucometer (BldC) [M ass/Vol]Ordered By: Kim Renteria on 03-09-2024 Glucose [Mass/Vol] 561 mg/dL High 70-105 [facility] Glucose [Mass/volume] in Ser um or PlasmaOrdered By: Romain Roy on 03-09-2024 Glucose [Mass/Vol] 1006 mg/dL High 70-100 [facility] Comment on above: ADA recommended refe rence rangeRandom Glucose Reference Range is dependent on time and content of last meal. Glucose of more than 200 mg/dL in a nonstressed, ambulatory subject supports the diagnosis of Diabetes Mellitus. Glucose [Mass/volume] in Uri ne by Test stripOrdered By: Hector Mann on 03-09-2024 Glucose Test strip (U) [Mass/Vol] >=1000 mg/dL High Normal [facility] Hematocrit Auto (Bld) [Volum e fraction]Ordered By: Romain Roy on 03-09-2024 Hematocrit (Bld) [Volume fraction] 33.6 % Low 38.8-50.0 [facility] Hemoglobin Test strip Ql (U) Ordered By: Hector Mann on 03-09-2024 Hemoglobin Ql (U) 1+ High Negative [facility] Hemoglobin [Mass/volume] in BloodOrdered By: Romain Roy on 03-09-2024 Hemoglobin (Bld) [Mass/Vol] 10.9 g/dL Low 13.0-17.0 [facility] Hyaline casts [#/area] in Ur ine sediment by Automated countOrdered By: Hector Mann on 03-09-2024 Hyaline casts Auto (Urine sed) [#/Area] None [LPF] 0-8 [facility] Ketones Test strip Ql (U)Ord ered By: Hector Mann on 03-09-2024 Ketones Ql (U) Negative Negative [facility] Laboratory - Chemistry and C hemistry - challengeOrdered By: Romain Roy on 03-09-2024 CO2 [Moles/Vol] 21.5 mmol/L Low 23.0-27.0 [facility] HCO3 (Bld) [Moles/Vol] 20.3 mmol/L Low 23.0-29.0 [facility] Lactate [Moles/volume] in Se rum or PlasmaOrdered By: Hector Mann on 03-09-2024 Lactate [Moles/Vol] 0.8 mmol/L 0.5-2.2 [facility] Leukocyte esterase [Presence ] in Urine by Test stripOrdered By: Hector Mann on 03-09-2024 Leukocyte esterase Test strip Ql (U) Negative Negative [facility] Leukocytes [#/area] in Urine sediment by Automated countOrdered By: Hector Mann on 03-09-2024 WBC Auto (Urine sed) [#/Area] 5-9 [HPF] High 0-4 [facility] Leukocytes [#/volume] correc celena for nucleated erythrocytes in Blood by Automated counOrdered By: Romain Roy on 03-09-2024 WBC corrected for nucl RBC Auto (Bld) [#/Vol] 12.4 10*3/uL High 4.1-10.5 [facility] Lymphocytes Auto (Bld) [#/Vo l]Ordered By: Romain Roy on 03-09-2024 Lymphocytes (Bld) [#/Vol] 0.5 10*3/uL Low 1.00-4.8 [facility] Lymphocytes/100 WBC Auto (Bl d)Ordered By: Romain Roy on 03-09-2024 Lymphocytes/100 WBC (Bld) 3.8 % . [facility] MCH Auto (RBC) [Entitic mass ]Ordered By: Romain Roy on 03-09-2024 MCH (RBC) [Entitic mass] 30.6 pg 27.5-35.2 [facility] MCHC Auto (RBC) [Mass/Vol]Or dered By: Romain Roy on 03-09-2024 MCHC (RBC) [Mass/Vol] 32.6 g/dL 32.5-35.6 [facility] MCV Auto (RBC) [Entitic vol] Ordered By: Romain Roy on 03-09-2024 MCV (RBC) [Entitic vol] 93.9 fL 83.5-101 [facility] Monocyte distribution width [Entitic volume] in Blood by AutomatedOrdered By: Romain Roy on 03-09-2024 Monocyte distribution width Auto (Bld) [Entitic vol] 15.01 % 0.00-20.00 [facility] Monocytes Auto (Bld) [#/Vol] Ordered By: Romain Roy on 03-09-2024 Monocytes (Bld) [#/Vol] 0.5 10*3/uL 0.0-0.8 [facility] Monocytes/100 WBC Auto (Bld) Ordered By: Romain Roy on 03-09-2024 Monocytes/100 WBC (Bld) 4.4 % . [facility] Natriuretic peptide B [Mass/ Vol]Ordered By: Romain Roy on 03-09-2024 Natriuretic peptide B (Bld) [Mass/Vol] 4104.0 pg/mL High 5-100 [facility] Neutrophils Auto (Bld) [#/Vo l]Ordered By: Romain Roy on 03-09-2024 Neutrophils (Bld) [#/Vol] 11.2 10*3/uL High 1.8-7.7 [facility] Neutrophils/100 WBC Auto (Bl d)Ordered By: Romain Roy on 03-09-2024 Neutrophils/100 WBC (Bld) 90.8 % . [facility] Nitrite Test strip Ql (U)Ord ered By: Hector Mann on 03-09-2024 Nitrite Ql (U) Negative Negative [facility] No Panel InformationOrdered By: Kim Renteria on 03-09-2024 Bedside Glucose #2 Comment Insulin ariadna singer [facility] Bedside Glucose Comment See comment [facility] Comment on above: Glu2: WILL NOTIFY DR /RN No Panel InformationOrdered By: Romain Roy on 03-09-2024 Arterial Blood Base Excess -4.7 mmol/L Low -3.0-3.0 [facility] Arterial Blood Oxygen Content 5.8 mmol/L Low 6.6-9.7 [facility] Arterial Blood Oxygen Saturation 80.2 % Low 95.0-100.0 [facility] Arterial Blood Partial Pressure CO2 37.7 mm[Hg] 35.0-45.0 [facility] Arterial Blood Partial Pressure O2 46.9 mm[Hg] Low 80.0-100.0 [facility] Arterial Blood pH 7.35 7.35-7.45 [facility] Blood Gas Critical Value See comment [facility] Comment on above: Critical Value lion d on: 03/09/2024 at 08:02 Blood Gas Sample Site Right radial [facility] FiO2 21 % [facility] Estimated GFR (CKD-EPI) 9.721 mL/Min [facility] Creatinine Clearance (Chem 14.50 [facility] Nucleated erythrocytes [Pres ence] in Blood by Automated countOrdered By: Romain Roy on 03-09-2024 Nucleated RBC Auto Ql (Bld) 0.0 /100{WBC} 0-0.5 [facility] Platelet mean volume Auto (B ld) [Entitic vol]Ordered By: Romain Roy on 03-09-2024 Platelet mean volume (Bld) [Entitic vol] 9.2 fL 6.6-10.1 [facility] Platelets Auto (Bld) [#/Vol] Ordered By: Romain Roy on 03-09-2024 Platelets (Bld) [#/Vol] 184 10*3/uL 150-450 [facility] Potassium [Moles/volume] in Serum or PlasmaOrdered By: Romain Roy on 03-09-2024 Potassium [Moles/Vol] 5.7 mmol/L High 3.5-5.1 [facility] Protein Test strip (U) [Mass /Vol]Ordered By: Hector Mann on 03-09-2024 Protein (U) [Mass/Vol] 300 mg/dL High Negative [facility] Protein [Mass/volume] in Ser um or PlasmaOrdered By: Romain Roy on 03-09-2024 Protein [Mass/Vol] 7.2 g/dL 6.4-8.9 [facility] RBC Auto (Bld) [#/Vol]Ordere d By: Romain Roy on 03-09-2024 RBC (Bld) [#/Vol] 3.58 10*6/uL Low 3.90-5.60 [facility] Serum or plasma albumin/glob ulin mass ratioOrdered By: Romain Roy on 03-09-2024 Albumin/Globulin [Mass ratio] 1.3 {ratio} [facility] Serum or plasma anion gap de terminationOrdered By: Romain Roy on 03-09-2024 Anion gap [Moles/Vol] 20.5 mmol/L High 6.0-15.0 [facility] Sodium [Moles/volume] in Ser um or PlasmaOrdered By: Romain Roy on 03-09-2024 Sodium [Moles/Vol] 116 mmol/L Low 136-145 [facility] Comment on above: Critical Result Call ed to and read back by: NIKI DEY at: 03/09/2024 07:11:44 by:MLG Specific gravity Test strip (U) [Rel density]Ordered By: Hector Mann on 03-09-2024 Specific gravity (U) [Rel density] 1.013 1.001-1.030 [facility] Urea nitrogen [Mass/volume] in Serum or PlasmaOrdered By: Romain Roy on 03-09-2024 Urea nitrogen [Mass/Vol] 68 mg/dL High 7-25 [facility] Urine appearanceOrdered By: Hector Mann on 03-09-2024 Appearance (U) Clear Clear [facility] Urobilinogen Test strip (U) [Mass/Vol]Ordered By: Hector Mann on 03-09-2024 Urobilinogen (U) [Mass/Vol] Normal mg/dL Normal [facility] WBC Auto (Bld) [#/Vol]Ordere d By: Romain Roy on 03-09-2024 WBC (Bld) [#/Vol] 12.4 10*3/uL High 4.1-10.5 [facility] pH Test strip (U)Ordered By: Hector Mann on 03-09-2024 pH (U) 6.5 [pH] 5.0-9.0 [facility] Basophils Auto (Bld) [#/Vol] Ordered By: Isidoro Mesa on 03-02-2024 Basophils (Bld) [#/Vol] 0.0 10*3/uL 0.0-0.2 [facility] Basophils/100 WBC Auto (Bld) Ordered By: Isidoro Mesa on 03-02-2024 Basophils/100 WBC (Bld) 0.4 % . [facility] Calcium [Mass/volume] in Ser um or PlasmaOrdered By: Isidoro Mesa on 03-02-2024 Calcium [Mass/Vol] 8.2 mg/dL Low 8.6-10.3 [facility] [facility] Carbon dioxide, total [Moles /volume] in Serum or PlasmaOrdered By: Isidoro Mesa on 03-02-2024 CO2 [Moles/Vol] 20.3 mmol/L Low 21.0-31.0 [facility] Chloride [Moles/volume] in S gretta or PlasmaOrdered By: Isidoro Mesa on 03-02-2024 Chloride [Moles/Vol] 95 mmol/L Low 98-107 [facility] Creatinine [Mass/volume] in Serum or PlasmaOrdered By: Isidoro Mesa on 03-02-2024 Creatinine [Mass/Vol] 8.67 mg/dL High 0.70-1.30 [facility] Comment on above: Delta: 7.89 on 03/01-1119 Eosinophils Auto (Bld) [#/Vo l]Ordered By: Isidoro Mesa on 03-02-2024 Eosinophils (Bld) [#/Vol] 0.0 10*3/uL 0.0-0.45 [facility] Eosinophils/100 WBC Auto (Bl d)Ordered By: Isidoro Mesa on 03-02-2024 Eosinophils/100 WBC (Bld) 0.0 % . [facility] Erythrocyte distribution wid th Auto (RBC) [Ratio]Ordered By: Isidoro Mesa on 03-02-2024 Erythrocyte distribution width (RBC) [Ratio] 14.8 % 12.0-14.8 [facility] Glucose Glucometer (BldC) [M ass/Vol]Ordered By: Julio Allen on 03-02-2024 Glucose [Mass/Vol] 225 mg/dL [facility] Comment on above: Random Glucose Refer ence Range is dependent on time and content of last meal. Glucose of more than 200 mg/dL in a nonstressed, ambulatory subject supports the diagnosis of Diabetes Mellitus. Glucose [Mass/volume] in Ser um or PlasmaOrdered By: Isidoro Mesa on 03-02-2024 Glucose [Mass/Vol] 379 mg/dL High 70-100 [facility] Comment on above: Delta: 547 on -[id number] recommended reference rangeRandom Glucose Reference Range is dependent on time and content of last meal. Glucose of more than 200 mg/dL in a nonstressed, ambulatory subject supports the diagnosis of Diabetes Mellitus. Hematocrit Auto (Bld) [Volum e fraction]Ordered By: Isidoro Mesa on 03-02-2024 Hematocrit (Bld) [Volume fraction] 26.9 % Low 38.8-50.0 [facility] Hemoglobin [Mass/volume] in BloodOrdered By: Isidoro Mesa on 03-02-2024 Hemoglobin (Bld) [Mass/Vol] 9.2 g/dL Low 13.0-17.0 [facility] Leukocytes [#/volume] correc celena for nucleated erythrocytes in Blood by Automated counOrdered By: Isidoro Mesa on 03-02-2024 WBC corrected for nucl RBC Auto (Bld) [#/Vol] 9.4 10*3/uL 4.1-10.5 [facility] Lymphocytes Auto (Bld) [#/Vo l]Ordered By: Isidoro Mesa on 03-02-2024 Lymphocytes (Bld) [#/Vol] 0.7 10*3/uL Low 1.00-4.8 [facility] Lymphocytes/100 WBC Auto (Bl d)Ordered By: Isidoro Mesa on 03-02-2024 Lymphocytes/100 WBC (Bld) 7.7 % . [facility] MCH Auto (RBC) [Entitic mass ]Ordered By: Isidoro Mesa on 03-02-2024 MCH (RBC) [Entitic mass] 31.1 pg 27.5-35.2 [facility] MCHC Auto (RBC) [Mass/Vol]Or dered By: Isidoro Mesa on 03-02-2024 MCHC (RBC) [Mass/Vol] 34.4 g/dL 32.5-35.6 [facility] MCV Auto (RBC) [Entitic vol] Ordered By: Isidoro Mesa on 03-02-2024 MCV (RBC) [Entitic vol] 90.6 fL 83.5-101 [facility] Magnesium [Mass/volume] in S gretta or PlasmaOrdered By: Isidoro Mesa on 03-02-2024 Magnesium [Mass/Vol] 2.1 mg/dL 1.9-2.7 [facility] Monocytes Auto (Bld) [#/Vol] Ordered By: Isidoro Mesa on 03-02-2024 Monocytes (Bld) [#/Vol] 0.5 10*3/uL 0.0-0.8 [facility] Monocytes/100 WBC Auto (Bld) Ordered By: Isidoro Msea on 03-02-2024 Monocytes/100 WBC (Bld) 5.1 % . [facility] Neutrophils Auto (Bld) [#/Vo l]Ordered By: Isidoro Mesa on 03-02-2024 Neutrophils (Bld) [#/Vol] 8.2 10*3/uL High 1.8-7.7 [facility] Neutrophils/100 WBC Auto (Bl d)Ordered By: Isidoro Mesa on 03-02-2024 Neutrophils/100 WBC (Bld) 86.8 % . [facility] No Panel InformationOrdered By: Chung Maria on 03-02-2024 Bedside Glucose Comment See comment [facility] Comment on above: Glu2: Will Repeat Te st No Panel InformationOrdered By: Isidoro Mesa on 03-02-2024 Estimated GFR (CKD-EPI) 7.398 mL/Min [facility] Creatinine Clearance (Chem 13.06 [facility] Nucleated erythrocytes [Pres ence] in Blood by Automated countOrdered By: Isidoro Mesa on 03-02-2024 Nucleated RBC Auto Ql (Bld) 0.1 /100{WBC} 0-0.5 [facility] Platelet mean volume Auto (B ld) [Entitic vol]Ordered By: Isidoro Mesa on 03-02-2024 Platelet mean volume (Bld) [Entitic vol] 9.5 fL 6.6-10.1 [facility] Platelets Auto (Bld) [#/Vol] Ordered By: Isidoro Mesa on 03-02-2024 Platelets (Bld) [#/Vol] 121 10*3/uL Low 150-450 [facility] Potassium [Moles/volume] in Serum or PlasmaOrdered By: Isidoro Mesa on 03-02-2024 Potassium [Moles/Vol] 5.9 mmol/L High 3.5-5.1 [facility] RBC Auto (Bld) [#/Vol]Ordere d By: Isidoro Mesa on 03-02-2024 RBC (Bld) [#/Vol] 2.97 10*6/uL Low 3.90-5.60 [facility] Serum or plasma anion gap de terminationOrdered By: Isidoro Mesa on 03-02-2024 Anion gap [Moles/Vol] 19.6 mmol/L High 6.0-15.0 [facility] Sodium [Moles/volume] in Ser um or PlasmaOrdered By: Isidoro Mesa on 03-02-2024 Sodium [Moles/Vol] 129 mmol/L Low 136-145 [facility] Urea nitrogen [Mass/volume] in Serum or PlasmaOrdered By: Isidoro Mesa on 03-02-2024 Urea nitrogen [Mass/Vol] 94 mg/dL High 7-25 [facility] WBC Auto (Bld) [#/Vol]Ordere d By: Isidoro Mesa on 03-02-2024 WBC (Bld) [#/Vol] 9.4 10*3/uL 4.1-10.5 [facility] Activated partial thrombopla stin time (aPTT) in platelet poor plasma by coagulation aOrdered By: Mickey Gr on 03-01-2024 aPTT Coag (PPP) [Time] 35.7 s 25.1-36.5 [facility] Comment on above: A hematocrit value g reater than 55% may lead to inaccurate results in coagulation testing. Patients having hematocrit values >55% require a special collection tube for coagulation studies. Please contact the laboratory at [phone] for redraw instructions. Bacterial blood cultureOrder ed By: Mickey Gr on 03-01-2024 Bacteria identified Cx Nom (Bld) NO GROWTH 5 DAYS [facility] Bacteria identified Cx Nom (Bld) NO GROWTH 5 DAYS [facility] Basophils Auto (Bld) [#/Vol] Ordered By: Mickey Gr on 03-01-2024 Basophils (Bld) [#/Vol] 0.1 10*3/uL 0.0-0.2 [facility] Basophils/100 WBC Auto (Bld) Ordered By: Mickey Gr on 03-01-2024 Basophils/100 WBC (Bld) 0.8 % . [facility] Beta hydroxybutyrate [Moles/ volume] in Serum or PlasmaOrdered By: Vibha Nicolas on 03-01-2024 Beta hydroxybutyrate [Moles/Vol] 0.14 mmol/L 0.02-0.27 [facility] COVID CepheidOrdered By: Marcia Gr on 03-01-2024 SARS-CoV-2 (COVID-19) Ab IA Ql Negative Negative [facility] Comment on above: This is a duplicate CepLoomioid Xpert Xpress CoV-2/Flu/RSV Plus RNA by RT-PCR result to be used for statistical tracking purpose only. SARS-CoV-2 (COVID-19) RNA HAO+probe Ql (Unsp spec) [facility] COVID-19 Detected/Not Detect edOrdered By: Isidoro Mesa on 03-01-2024 SARS-CoV-2 (COVID-19) RNA HAO+non-probe Ql (Nph) Not detected Not Detecte [facility] Comment on above: This is a duplicate RP2.1 COVID (PCR) result to be used for statistical tracking purpose only. Calcium [Mass/volume] in Ser um or PlasmaOrdered By: Mickey Gr on 03-01-2024 Calcium [Mass/Vol] 8.9 mg/dL 8.6-10.3 [facility] Carbon dioxide, total [Moles /volume] in Serum or PlasmaOrdered By: Mickey Gr on 03-01-2024 CO2 [Moles/Vol] 22.6 mmol/L 21.0-31.0 [facility] Chloride [Moles/volume] in S gretta or PlasmaOrdered By: Mickey Gr on 03-01-2024 Chloride [Moles/Vol] 94 mmol/L Low 98-107 [facility] Creatine kinase [Enzymatic a ctivity/volume] in Serum or PlasmaOrdered By: Mickey Gr on 03-01-2024 CK [Catalytic activity/Vol] 181 U/L 30-223 [facility] Creatinine [Mass/volume] in Serum or PlasmaOrdered By: Mickey Gr on 03-01-2024 Creatinine [Mass/Vol] 7.50 mg/dL High 0.70-1.30 [facility] Eosinophils Auto (Bld) [#/Vo l]Ordered By: Mickey Gr on 03-01-2024 Eosinophils (Bld) [#/Vol] 0.0 10*3/uL 0.0-0.45 [facility] Eosinophils/100 WBC Auto (Bl d)Ordered By: Mickey Gr on 03-01-2024 Eosinophils/100 WBC (Bld) 0.2 % . [facility] Erythrocyte distribution wid th Auto (RBC) [Ratio]Ordered By: Mickey Gr on 03-01-2024 Erythrocyte distribution width (RBC) [Ratio] 14.9 % High 12.0-14.8 [facility] Glucose [Mass/volume] in Ser um or PlasmaOrdered By: Mickey Gr on 03-01-2024 Glucose [Mass/Vol] 477 mg/dL High 70-100 [facility] Comment on above: ADA recommended refe [...] from glycated hemoglobin (Bld) [Mass/Vol] 217 mg/dL [facility] Hematocrit Auto (Bld) [Volum e fraction]Ordered By: Mickey Gr on 03-01-2024 Hematocrit (Bld) [Volume fraction] 29.5 % Low 38.8-50.0 [facility] Hemoglobin A1c percentageOrd ered By: Isidoro Mesa on 03-01-2024 HbA1c (Bld) [Mass fraction] 9.2 % High 4.3-5.6 [facility] Comment on above: Increased risk for d iabetes: 5.7 - 6.4diabetes: >6.4glycemic control for adults with diabetes: <7.0 Hemoglobin [Mass/volume] in BloodOrdered By: Mickey Gr on 03-01-2024 Hemoglobin (Bld) [Mass/Vol] 10.0 g/dL Low 13.0-17.0 [facility] INR in Platelet poor plasma by Coagulation assayOrdered By: Mickey Gr on 03-01-2024 INR Coag (PPP) [Relative time] 1.1 {INR} [facility] Comment on above: INR Therapeutic Rang [...] [Moles/volume] in Se rum or PlasmaOrdered By: Mickey Gr on 03-01-2024 Lactate [Moles/Vol] 0.6 mmol/L 0.5-2.2 [facility] Leukocytes [#/volume] correc celena for nucleated erythrocytes in Blood by Automated counOrdered By: Mickey Gr on 03-01-2024 WBC corrected for nucl RBC Auto (Bld) [#/Vol] 10.2 10*3/uL 4.1-10.5 [facility] Lymphocytes Auto (Bld) [#/Vo l]Ordered By: Mickey Gr on 03-01-2024 Lymphocytes (Bld) [#/Vol] 0.8 10*3/uL Low 1.00-4.8 [facility] Lymphocytes/100 WBC Auto (Bl d)Ordered By: Mickey Gr on 03-01-2024 Lymphocytes/100 WBC (Bld) 8.0 % . [facility] MCH Auto (RBC) [Entitic mass ]Ordered By: Mickey Gr on 03-01-2024 MCH (RBC) [Entitic mass] 30.7 pg 27.5-35.2 [facility] MCHC Auto (RBC) [Mass/Vol]Or dered By: Mickey Gr on 03-01-2024 MCHC (RBC) [Mass/Vol] 33.9 g/dL 32.5-35.6 [facility] MCV Auto (RBC) [Entitic vol] Ordered By: Mickey Gr on 03-01-2024 MCV (RBC) [Entitic vol] 90.7 fL 83.5-101 [facility] Monocyte distribution width [Entitic volume] in Blood by AutomatedOrdered By: Mickey Gr on 03-01-2024 Monocyte distribution width Auto (Bld) [Entitic vol] 14.33 % 0.00-20.00 [facility] Monocytes Auto (Bld) [#/Vol] Ordered By: Mickey Gr on 03-01-2024 Monocytes (Bld) [#/Vol] 0.5 10*3/uL 0.0-0.8 [facility] Monocytes/100 WBC Auto (Bld) Ordered By: Mickey Gr on 03-01-2024 Monocytes/100 WBC (Bld) 5.4 % . [facility] Natriuretic peptide B [Mass/ Vol]Ordered By: Mickey Gr on 03-01-2024 Natriuretic peptide B (Bld) [Mass/Vol] 2530.0 pg/mL High 5-100 [facility] Neutrophils Auto (Bld) [#/Vo l]Ordered By: Mickey Gr on 03-01-2024 Neutrophils (Bld) [#/Vol] 8.8 10*3/uL High 1.8-7.7 [facility] Neutrophils/100 WBC Auto (Bl d)Ordered By: Mickey Gr on 03-01-2024 Neutrophils/100 WBC (Bld) 85.6 % . [facility] No Panel InformationOrdered By: Chung Maria on 03-01-2024 Bedside Glucose #2 Comment Will repeat test [facility] No Panel InformationOrdered By: Mickey Gr on 03-01-2024 Estimated GFR (CKD-EPI) 8.804 mL/Min [facility] Creatinine Clearance (Chem 13.51 [facility] Nucleated erythrocytes [Pres ence] in Blood by Automated countOrdered By: Mickey Gr on 03-01-2024 Nucleated RBC Auto Ql (Bld) 0.0 /100{WBC} 0-0.5 [facility] Platelet mean volume Auto (B ld) [Entitic vol]Ordered By: Mickey Gr on 03-01-2024 Platelet mean volume (Bld) [Entitic vol] 8.9 fL 6.6-10.1 [facility] Platelets Auto (Bld) [#/Vol] Ordered By: Mickey Gr on 03-01-2024 Platelets (Bld) [#/Vol] 141 10*3/uL Low 150-450 [facility] Potassium [Moles/volume] in Serum or PlasmaOrdered By: Mickey Gr on 03-01-2024 Potassium [Moles/Vol] 5.0 mmol/L 3.5-5.1 [facility] Prothrombin time (PT)Ordered By: Mickey Gr on 03-01-2024 PT Coag (PPP) [Time] 13.1 s High 9.0-12.9 [facility] Comment on above: A hematocrit value g reater than 55% may lead to inaccurate results in coagulation testing. Patients having hematocrit values >55% require a special collection tube for coagulation studies. Please contact the laboratory at [phone] for redraw instructions. RBC Auto (Bld) [#/Vol]Ordere d By: Mickey Gr on 03-01-2024 RBC (Bld) [#/Vol] 3.25 10*6/uL Low 3.90-5.60 [facility] Respiratory pathogens DNA an d RNA panel - Nasopharynx by HAO with non-probe detectionOrdered By: Isidoro Mesa on 03-01-2024 Respiratory pathogens DNA and RNA panel HAO+non-probe (Nph) [facility] Serum or plasma anion gap de terminationOrdered By: Mickey Gr on 03-01-2024 Anion gap [Moles/Vol] 15.4 mmol/L High 6.0-15.0 [facility] Sodium [Moles/volume] in Ser um or PlasmaOrdered By: Mickey Gr on 03-01-2024 Sodium [Moles/Vol] 127 mmol/L Low 136-145 [facility] Troponin I.cardiac [Mass/vol ume] in Serum or Plasma by Detection limit <= 0.01 ng/Ordered By: Mickey Gr on 03-01-2024 Troponin I.cardiac DL <= 0.01 ng/mL [Mass/Vol] 36.3 pg/mL High 0.0-20.0 [facility] Urea nitrogen [Mass/volume] in Serum or PlasmaOrdered By: iMckey rG on 03-01-2024 Urea nitrogen [Mass/Vol] 69 mg/dL High 7-25 [facility] WBC Auto (Bld) [#/Vol]Ordere d By: Mickey Gr on 03-01-2024 WBC (Bld) [#/Vol] 10.2 10*3/uL 4.1-10.5 [facility] Basophils Auto (Bld) [#/Vol] on 02-29-2024 Basophils (Bld) [#/Vol] 0.1 10 3/uL 0.0-0.1 [facility] Basophils/100 WBC Auto (Bld) on 02-29-2024 Basophils/100 WBC (Bld) 1.2 % 0.2-2.0 [facility] Eosinophils/100 WBC Auto (Bl d)on 02-29-2024 Eosinophils/100 WBC (Bld) 3.4 % 0.9-7.0 [facility] Erythrocyte distribution wid th Auto (RBC) [Ratio]on 02-29-2024 Erythrocyte distribution width (RBC) [Ratio] 14.5 % 11.0-15.0 [facility] Estimated glomerular filtrat ion rate (GFR) non- Americanon 02-29-2024 GFR/1.73 sq M.predicted among non-blacks MDRD (S/P/Bld) [Vol rate/Area] 10 mL/min/{1.73_m2} Low >=60 [facility] Hematocrit Auto (Bld) [Volum e fraction]on 02-29-2024 Hematocrit (Bld) [Volume fraction] 29.1 % Low 42.0-54.0 [facility] Hemoglobin [Mass/volume] in Bloodon 02-29-2024 Hemoglobin (Bld) [Mass/Vol] 9.5 g/dL Low 14.0-18.0 [facility] Laboratory - Chemistry and C hemistry - challengeon 02-29-2024 Calcium [Mass/Vol] 8.2 mg/dL Low 8.5-10.1 [facility] Chloride [Moles/Vol] 95 mmol/L Low 98-107 [facility] CO2 [Moles/Vol] 27.9 mmol/L 21.0-32.0 [facility] Creatinine [Mass/Vol] 6.13 mg/dL High 0.70-1.30 [facility] Comment on above: RESULTS CALLED TO Leonardo Barber (RN)@BY Tamara Russell, MLTat 0043 GFR/1.73 sq M.predicted MDRD (S/P/Bld) [Vol rate/Area] 13 mL/min/{1.73_m2} Low >=60 [facility] Glucose [Mass/Vol] 346 mg/dL High 74-106 [facility] Potassium [Moles/Vol] 4.3 mmol/L 3.5-5.1 [facility] Sodium [Moles/Vol] 131 mmol/L Low 136-145 [facility] Urea nitrogen [Mass/Vol] 43.0 mg/dL High 7.0-18.0 [facility] Urea nitrogen/Creatinine [Mass ratio] 7.0 mg/mg [facility] - Hematology and Cell countson 07-13-2024 Immature granulocytes/100 WBC (Bld) 0.2 % 0.0-0.5 [facility] Leukocytes [#/volume] correc celena for nucleated erythrocytes in Blood by Automated counon 02-29-2024 WBC corrected for nucl RBC Auto (Bld) [#/Vol] 5.6 10 3/uL 4.0-11.0 [facility] Lymphocytes Auto (Bld) [#/Vo l]on 02-29-2024 Lymphocytes (Bld) [#/Vol] 1.1 10 3/uL Low 1.2-3.8 [facility] Lymphocytes/100 WBC Auto (Bl d)on 02-29-2024 Lymphocytes/100 WBC (Bld) 19.7 % Low 20.5-60.0 [facility] MCH Auto (RBC) [Entitic mass ]on 02-29-2024 MCH (RBC) [Entitic mass] 30.4 pg 25.9-34.0 [facility] MCHC Auto (RBC) [Mass/Vol]on 02-29-2024 MCHC (RBC) [Mass/Vol] 32.6 g/dL 29.9-35.2 [facility] MCV Auto (RBC) [Entitic vol] on 02-29-2024 MCV (RBC) [Entitic vol] 93.3 fL 80.0-94.0 [facility] Monocytes Auto (Bld) [#/Vol] on 02-29-2024 Monocytes (Bld) [#/Vol] 0.3 10 3/uL 0.3-0.8 [facility] Monocytes/100 WBC Auto (Bld) on 02-29-2024 Monocytes/100 WBC (Bld) 6.0 % 1.7-12.0 [facility] Neutrophils Auto (Bld) [#/Vo l]on 02-29-2024 Neutrophils (Bld) [#/Vol] 3.9 10 3/uL 1.4-6.5 [facility] Neutrophils/100 WBC Auto (Bl d)on 02-29-2024 Neutrophils/100 WBC (Bld) 69.5 % 43.0-75.0 [facility] No Panel Informationon 02-28 Eosinophils # (Auto) 0.2 10 3/uL 0.0-0.7 [facility] Immature Granulocyte # (Auto) 0.01 10 3/uL 0.00-0.03 [facility] Platelet mean volume Auto (B ld) [Entitic vol]on 02-29-2024 Platelet mean volume (Bld) [Entitic vol] 10.3 fL 9.5-13.5 [facility] Platelets Auto (Bld) [#/Vol] on 02-29-2024 Platelets (Bld) [#/Vol] 116 10 3/uL Low 150-450 [facility] RBC Auto (Bld) [#/Vol]on RBC (Bld) [#/Vol] 3.12 10 6/uL Low 4.70-6.10 [facility] Serum or plasma anion gap de terminationon 02-29-2024 Anion gap [Moles/Vol] 12.4 mmol/L [facility] Hemoglobin [Mass/volume] in Bloodon 01-13-2024 Hemoglobin (Bld) [Mass/Vol] 11.1 g/dL Low 14.0-18.0 [facility] Bacteria identifiedon 2023 Bacteria identified Cx Nom (Body fld) Test: Sterile Fluid Culture/Smear Specimen Source: Vitreous Specimen Type: Fluid Specimen Date: 12/16/2023 1800 Result Date: 12/21/2023 1343 Result Status: Final result Resulting Lab: [facility] [address] [place] [id number] CULTURE No growth aerobically and anaerobically STAIN No polymorphonuclear leukocytes seen No organisms seen Normal [facility] Comment on above: Performed By: #### 6 11-4 #### VIVEK Almaraz ([id number]) [facility] ([facility]) [address] [place] [address] Patient Correspondenceon Patient Correspondence [id number] F Normal [facility] Amphetamine Screen Ql (U)Ord ered By: Yordy Garg on 11-26-2023 Amphetamines Ql (U) Negative Negative [facility] Barbiturates [Presence] in U rine by Screen methodOrdered By: Yordy Garg on 11-26-2023 Barbiturates Screen Ql (U) Negative Negative [facility] Benzodiazepines Screen Ql (U )Ordered By: Yordy Garg on 11-26-2023 Benzodiazepines Ql (U) Negative Negative [facility] Benzoylecgonine [Presence] i n Urine by Screen methodOrdered By: Yordy Garg on 11-26-2023 Benzoylecgonine Screen Ql (U) Negative Negative [facility] Calcium [Mass/volume] in Ser um or PlasmaOrdered By: Yordy Garg on 11-26-2023 Calcium [Mass/Vol] 8.8 mg/dL 8.6-10.3 [facility] Cannabinoids [Presence] in U rine by Screen methodOrdered By: Yordy Garg on 11-26-2023 Cannabinoids Screen Ql (U) Negative Negative [facility] Comment on above: These are unconfirme d results and should not be used for legal purposes. Drug Cut-Off Concentration: AMPH 1000 ng/mL BYRON 200 ng/mL STEPHANIE 200 ng/mL COCM 300 ng/mL OP 300 ng/mL PCP 25 ng/mL THC 20 ng/mL Carbon dioxide, total [Moles /volume] in Serum or PlasmaOrdered By: Yordy Garg on 11-26-2023 CO2 [Moles/Vol] 25.0 mmol/L 21.0-31.0 [facility] Chloride [Moles/volume] in S gretta or PlasmaOrdered By: Yordy Garg on 11-26-2023 Chloride [Moles/Vol] 93 mmol/L 98-107 [facility] Creatinine [Mass/volume] in Serum or PlasmaOrdered By: Yordy Garg on 11-26-2023 Creatinine [Mass/Vol] 6.56 mg/dL 0.70-1.30 [facility] Glucose Glucometer (BldC) [M ass/Vol]Ordered By: Romain Mendoza on 11-26-2023 Glucose [Mass/Vol] 235 mg/dL [facility] Comment on above: Random Glucose Refer ence Range is dependent on time and content of last meal. Glucose of more than 200 mg/dL in a nonstressed, ambulatory subject supports the diagnosis of Diabetes Mellitus. Glucose [Mass/volume] in Ser um or PlasmaOrdered By: Yordy Garg on 11-26-2023 Glucose [Mass/Vol] 339 mg/dL 70-100 [facility] Comment on above: ADA recommended refe rence rangeRandom Glucose Reference Range is dependent on time and content of last meal. Glucose of more than 200 mg/dL in a nonstressed, ambulatory subject supports the diagnosis of Diabetes Mellitus. Hematocrit Auto (Bld) [Volum e fraction]Ordered By: Yordy Garg on 11-26-2023 Hematocrit (Bld) [Volume fraction] 27.8 % 38.8-50.0 [facility] Hemoglobin [Mass/volume] in BloodOrdered By: Yordy Garg on 11-26-2023 Hemoglobin (Bld) [Mass/Vol] 9.8 g/dL 13.0-17.0 [facility] No Panel InformationOrdered By: Yordy Garg on 11-26-2023 Estimated GFR (CKD-EPI) 10.339 mL/Min [facility] Creatinine Clearance (Chem 15.44 [facility] Opiates [Presence] in Urine by Screen methodOrdered By: Yordy Garg on 11-26-2023 Opiates Screen Ql (U) Negative Negative [facility] Phencyclidine Screen Ql (U)O rdered By: Yordy Garg on 11-26-2023 Phencyclidine Ql (U) Negative Negative [facility] Potassium [Moles/volume] in Serum or PlasmaOrdered By: Yordy Garg on 11-26-2023 Potassium [Moles/Vol] 4.0 mmol/L 3.5-5.1 [facility] Serum or plasma anion gap de terminationOrdered By: Yordy Garg on 11-26-2023 Anion gap [Moles/Vol] 15.0 mmol/L 6.0-15.0 [facility] Sodium [Moles/volume] in Ser um or PlasmaOrdered By: Yordy Garg on 11-26-2023 Sodium [Moles/Vol] 129 mmol/L 136-145 [facility] Urea nitrogen [Mass/volume] in Serum or PlasmaOrdered By: Yordy Garg on 11-26-2023 Urea nitrogen [Mass/Vol] 43 mg/dL 7-25 [facility] Patient Letter FTMCon 2023 Patient Letter FT (Inserted Image. Erica ble to display) November 18, 2023 YOEL WERNER [address] [place] [id number] : 1985 Dear Yoel, You missed your scheduled appointment on: 11/18/[address] Mickey Guerin. Please note our appointment slots fill [...] [facility] [address], [place] [address] [facility] Activated partial thrombopla stin time (aPTT) in platelet poor plasma by coagulation aOrdered By: Kavya Chapman on 10-02-2023 aPTT Coag (PPP) [Time] 31.7 s 25.1-36.5 [facility] Comment on above: A hematocrit value g reater than 55% may lead to inaccurate results in coagulation testing. Patients having hematocrit values >55% require a special collection tube for coagulation studies. Please contact the laboratory at [phone] for redraw instructions. Basophils Auto (Bld) [#/Vol] Ordered By: Kavya Chapman on 10-02-2023 Basophils (Bld) [#/Vol] 0.1 10*3/uL 0.0-0.2 [facility] Basophils/100 WBC Auto (Bld) Ordered By: Kavya Bullimore on 10-02-2023 Basophils/100 WBC (Bld) 1.2 % . [facility] Calcium [Mass/volume] in Ser um or PlasmaOrdered By: Kavya Bullimore on 10-02-2023 Calcium [Mass/Vol] 8.5 mg/dL 8.6-10.3 [facility] Carbon dioxide, total [Moles /volume] in Serum or PlasmaOrdered By: Kavya Bullimore on 10-02-2023 CO2 [Moles/Vol] 28.7 mmol/L 21.0-31.0 [facility] Chloride [Moles/volume] in S gretta or PlasmaOrdered By: Kavya Bullimore on 10-02-2023 Chloride [Moles/Vol] 97 mmol/L 98-107 [facility] Creatine kinase [Enzymatic a ctivity/volume] in Serum or PlasmaOrdered By: Kavya Bullimore on 10-02-2023 CK [Catalytic activity/Vol] 48 U/L 30-223 [facility] Creatinine [Mass/volume] in Serum or PlasmaOrdered By: Kavya Bullimore on 10-02-2023 Creatinine [Mass/Vol] 4.60 mg/dL 0.70-1.30 [facility] Eosinophils Auto (Bld) [#/Vo l]Ordered By: Kavya Bullimore on 10-02-2023 Eosinophils (Bld) [#/Vol] 0.2 10*3/uL 0.0-0.45 [facility] [facility] Eosinophils/100 WBC Auto (Bl d)Ordered By: Kavya Bullimore on 10-02-2023 Eosinophils/100 WBC (Bld) 2.4 % . [facility] Erythrocyte distribution wid th Auto (RBC) [Ratio]Ordered By: Kavya Bullimteresita on 10-02-2023 Erythrocyte distribution width (RBC) [Ratio] 14.4 % 12.0-14.8 [facility] Glucose [Mass/volume] in Ser um or PlasmaOrdered By: Kavya Bullimore on 10-02-2023 Glucose [Mass/Vol] 214 mg/dL 70-100 [facility] Comment on above: ADA recommended refe rence rangeRandom Glucose Reference Range is dependent on time and content of last meal. Glucose of more than 200 mg/dL in a nonstressed, ambulatory subject supports the diagnosis of Diabetes Mellitus. Hematocrit Auto (Bld) [Volum e fraction]Ordered By: Kavya Chapman on 10-02-2023 Hematocrit (Bld) [Volume fraction] 28.2 % 38.8-50.0 [facility] Hemoglobin [Mass/volume] in BloodOrdered By: Kavya Chapman on 10-02-2023 Hemoglobin (Bld) [Mass/Vol] 9.8 g/dL 13.0-17.0 [facility] INR in Platelet poor plasma by Coagulation assayOrdered By: Kavya Chapman on 10-02-2023 INR Coag (PPP) [Relative time] 1.0 {INR} [facility] Comment on above: INR Therapeutic Rang [...] RBC Auto (Bld) [#/Vol] 7.7 10*3/uL 4.1-10.5 [facility] Lymphocytes Auto (Bld) [#/Vo l]Ordered By: Kavya Chapman on 10-02-2023 Lymphocytes (Bld) [#/Vol] 1.0 10*3/uL 1.00-4.8 [facility] Lymphocytes/100 WBC Auto (Bl d)Ordered By: Kavya Chapman on 10-02-2023 Lymphocytes/100 WBC (Bld) 12.5 % . [facility] MCH Auto (RBC) [Entitic mass ]Ordered By: Kavya Chapman on 10-02-2023 MCH (RBC) [Entitic mass] 31.3 pg 27.5-35.2 [facility] MCHC Auto (RBC) [Mass/Vol]Or dered By: Kavya Bullimore on 10-02-2023 MCHC (RBC) [Mass/Vol] 34.8 g/dL 32.5-35.6 [facility] MCV Auto (RBC) [Entitic vol] Ordered By: Kavya Bullimore on 10-02-2023 MCV (RBC) [Entitic vol] 89.8 fL 83.5-101 [facility] Monocyte distribution width [Entitic volume] in Blood by AutomatedOrdered By: Kavya Bullimore on 10-02-2023 Monocyte distribution width Auto (Bld) [Entitic vol] 17.27 % 0.00-20.00 [facility] Monocytes Auto (Bld) [#/Vol] Ordered By: Kavya Bullimore on 10-02-2023 Monocytes (Bld) [#/Vol] 0.3 10*3/uL 0.0-0.8 [facility] Monocytes/100 WBC Auto (Bld) Ordered By: Kavya Bullimore on 10-02-2023 Monocytes/100 WBC (Bld) 3.5 % . [facility] Natriuretic peptide B [Mass/ Vol]Ordered By: Kavya Bullimore on 10-02-2023 Natriuretic peptide B (Bld) [Mass/Vol] 611.0 pg/mL 5-100 [facility] Neutrophils Auto (Bld) [#/Vo l]Ordered By: Kavya Bullimore on 10-02-2023 Neutrophils (Bld) [#/Vol] 6.2 10*3/uL 1.8-7.7 [facility] Neutrophils/100 WBC Auto (Bl d)Ordered By: Kavya Bullimore on 10-02-2023 Neutrophils/100 WBC (Bld) 80.4 % . [facility] No Panel InformationOrdered By: Kavya Bullimore on 10-02-2023 Estimated GFR (CKD-EPI) 15.828 mL/Min [facility] Creatinine Clearance (Chem 22.79 [facility] Nucleated erythrocytes [Pres ence] in Blood by Automated countOrdered By: Kavya Bullimore on 10-02-2023 Nucleated RBC Auto Ql (Bld) 0.0 /100{WBC} 0-0.5 [facility] Platelet mean volume Auto (B ld) [Entitic vol]Ordered By: Kavya Chapman on 10-02-2023 Platelet mean volume (Bld) [Entitic vol] 7.4 fL 6.6-10.1 [facility] Platelets Auto (Bld) [#/Vol] Ordered By: Kavya Jadeimore on 10-02-2023 Platelets (Bld) [#/Vol] 143 10*3/uL 150-450 [facility] Potassium [Moles/volume] in Serum or PlasmaOrdered By: Kavya Jadeimore on 10-02-2023 Potassium [Moles/Vol] 3.7 mmol/L 3.5-5.1 [facility] Prothrombin time (PT)Ordered By: Kavya Chapman on 10-02-2023 PT Coag (PPP) [Time] 12.0 s 9.0-12.9 [facility] Comment on above: A hematocrit value g reater than 55% may lead to inaccurate results in coagulation testing. Patients having hematocrit values >55% require a special collection tube for coagulation studies. Please contact the laboratory at [phone] for redraw instructions. RBC Auto (Bld) [#/Vol]Ordere d By: Kavya Chapman on 10-02-2023 RBC (Bld) [#/Vol] 3.14 10*6/uL 3.90-5.60 [facility] Serum or plasma anion gap de terminationOrdered By: Kavya Chapman on 10-02-2023 Anion gap [Moles/Vol] 14.0 mmol/L 6.0-15.0 [facility] Sodium [Moles/volume] in Ser um or PlasmaOrdered By: Kavya Bullimore on 10-02-2023 Sodium [Moles/Vol] 136 mmol/L 136-145 [facility] Troponin I.cardiac [Mass/vol ume] in Serum or Plasma by Detection limit <= 0.01 ng/Ordered By: Kavya Chapman on 10-02-2023 Troponin I.cardiac DL <= 0.01 ng/mL [Mass/Vol] 31.0 pg/mL 0.0-20.0 [facility] Urea nitrogen [Mass/volume] in Serum or PlasmaOrdered By: Kavya Jadeimore on 10-02-2023 Urea nitrogen [Mass/Vol] 34 mg/dL 7-25 [facility] WBC Auto (Bld) [#/Vol]Ordere d By: Kavya Bullimore on 10-02-2023 WBC (Bld) [#/Vol] 7.7 10*3/uL 4.1-10.5 [facility] Alanine aminotransferase [En zymatic activity/volume] in Serum or PlasmaOrdered By: Va Forte on 09-24-2023 ALT [Catalytic activity/Vol] 11 U/L 7-52 [facility] Albumin [Mass/volume] in Ser um or PlasmaOrdered By: Va Forte on 09-24-2023 Albumin [Mass/Vol] 3.7 g/dL 2.9-4.4 [facility] Albumin [Mass/volume] in Ser um or Plasma by Bromocresol green (BCG) dye binding methoOrdered By: Va Forte on 09-24-2023 Albumin BCG dye [Mass/Vol] 3.6 g/dL 3.5-5.7 [facility] Alkaline phosphatase [Enzyma tic activity/volume] in Serum or PlasmaOrdered By: aV Forte on 09-24-2023 ALP [Catalytic activity/Vol] 63 U/L 34-104 [facility] Aspartate aminotransferase [ Enzymatic activity/volume] in Serum or PlasmaOrdered By: Va Forte on 09-24-2023 AST [Catalytic activity/Vol] 12 U/L 13-39 [facility] Basophils Auto (Bld) [#/Vol] Ordered By: Va Forte on 09-24-2023 Basophils (Bld) [#/Vol] 0.1 10*3/uL 0.0-0.2 [facility] Basophils/100 WBC Auto (Bld) Ordered By: Va Forte on 09-24-2023 Basophils/100 WBC (Bld) 1.4 % . [facility] Bilirubin.total [Mass/volume ] in Serum or PlasmaOrdered By: Va Forte on 09-24-2023 Bilirubin [Mass/Vol] 0.6 mg/dL 0.3-1.0 [facility] Calcium [Mass/volume] in Ser um or PlasmaOrdered By: Va Forte on 09-24-2023 Calcium [Mass/Vol] 8.8 mg/dL 8.6-10.3 [facility] Carbon dioxide, total [Moles /volume] in Serum or PlasmaOrdered By: Va Forte on 09-24-2023 CO2 [Moles/Vol] 30.4 mmol/L 21.0-31.0 [facility] Chloride [Moles/volume] in S gretta or PlasmaOrdered By: Va Forte on 09-24-2023 Chloride [Moles/Vol] 98 mmol/L 98-107 [facility] Comprehensive metabolic pane dioni 09-24-2023 Albumin [Mass/Vol] 3.6 g/dL 3.5 - 5.7 g/dL [facility] Albumin/Globulin [Mass ratio] 1.3 {ratio} [facility] ALP [Catalytic activity/Vol] 63 U/L 34 - 104 U/L [facility] ALT [Catalytic activity/Vol] 11 U/L 7 - 52 U/L [facility] Anion gap [Moles/Vol] 10.8 mmol/L 6.0 - 15.0 NO [facility] AST [Catalytic activity/Vol] 12 U/L Low 13 - 39 U/L [facility] Bilirubin [Mass/Vol] 0.6 mg/dL 0.3 - 1 .0 mg/dL [facility] Calcium [Mass/Vol] 8.8 mg/dL 8.6 - 10. 3 mg/dL [facility] Chloride [Moles/Vol] 98 mmol/L 98 - 10 7 mmol/L [facility] CO2 [Moles/Vol] 30.4 mmol/L 21.0 - 31.0 mmol/L [facility] Creatinine (U) [Mass/Vol] 5.66 mg/dL High 0.70 - 1.30 mg/dL [facility] CREATININE CLR CALC PHARMACY 19.04 [facility] GFR/1.73 sq M.predicted MDRD (S/P/Bld) [Vol rate/Area] 12.341 mL/min/{1.73_m2} [facility] Globulin (S) [Mass/Vol] 2.7 g/dL N [facility] Glucose [Mass/Vol] 175 mg/dL High 70 - 100 mg/dL [facility] Comment on above: Random Glucose Refer ence Range is dependent on time and content of last meal. Glucose of more than 200 mg/dL in a nonstressed, ambulatory subject supports the diagnosis of Diabetes Mellitus. ADA recommended reference range Interpretation and review of laboratory results Abnormal [facility] Potassium [Moles/Vol] 4.2 mmol/L 3.5 - 5.1 mmol/L [facility] Protein [Mass/Vol] 6.3 g/dL Low 6.4 - 8.9 g/dL [facility] Sodium [Moles/Vol] 135 mmol/L Low 136 - 145 mmol/L [facility] Urea nitrogen [Mass/Vol] 35 mg/dL High 7 - 25 mg/dL [facility] Creatinine [Mass/volume] in Serum or PlasmaOrdered By: Va Forte on 09-24-2023 Creatinine [Mass/Vol] 5.66 mg/dL 0.70-1.30 [facility] Eosinophils Auto (Bld) [#/Vo l]Ordered By: Va Forte on 09-24-2023 Eosinophils (Bld) [#/Vol] 0.1 10*3/uL 0.0-0.45 [facility] Eosinophils/100 WBC Auto (Bl d)Ordered By: Va Forte on 09-24-2023 Eosinophils/100 WBC (Bld) 1.6 % . [facility] Erythrocyte distribution wid th Auto (RBC) [Ratio]Ordered By: Va Forte on 09-24-2023 Erythrocyte distribution width (RBC) [Ratio] 13.8 % 12.0-14.8 [facility] Globulin Calc (S) [Mass/Vol] Ordered By: Va Forte on 09-24-2023 Globulin (S) [Mass/Vol] 2.7 g/dL [facility] Glucose [Mass/volume] in Ser um or PlasmaOrdered By: Va Forte on 09-24-2023 Glucose [Mass/Vol] 175 mg/dL 70-100 [facility] Comment on above: ADA recommended refe rence rangeRandom Glucose Reference Range is dependent on time and content of last meal. Glucose of more than 200 mg/dL in a nonstressed, ambulatory subject supports the diagnosis of Diabetes Mellitus. Hematocrit Auto (Bld) [Volum e fraction]Ordered By: Va Reanna on 09-24-2023 Hematocrit (Bld) [Volume fraction] 30.9 % 38.8-50.0 [facility] Hemoglobin [Mass/volume] in BloodOrdered By: Va Forte on 09-24-2023 Hemoglobin (Bld) [Mass/Vol] 10.8 g/dL 13.0-17.0 [facility] IgA [Mass/volume] in Serum o r PlasmaOrdered By: Va Forte on 09-24-2023 IgA [Mass/Vol] 312 mg/dL 90-386 [facility] IgG [Mass/volume] in Serum o r PlasmaOrdered By: Va Forte on 09-24-2023 IgG [Mass/Vol] 1183 mg/dL 603-1613 [facility] IgM [Mass/volume] in Serum o r PlasmaOrdered By: Va Forte on 09-24-2023 IgM [Mass/Vol] 166 mg/dL 20-172 [facility] Comment on above: Performed at: [facility] [place] [address] [id number] Director: Pablito Alexander PhD, Phone: [phone] Immunoglobulin light chains. kappa.free [Mass/volume] in SerumOrdered By: Va Forte on 09-24-2023 Immunoglobulin light chains.kappa.free (S) [Mass/Vol] 189.5 mg/L 3.3-19.4 [facility] Immunoglobulin light chains. kappa.free/Immunoglobulin light chains.lambda.free [MassOrdered By: Va Forte on 09-24-2023 Immunoglobulin light chains.kappa.free/Immun oglobulin light chains.lambda.free (S) [Mass ratio] 1.48 0.26-1.65 [facility] Comment on above: Performed at: [facility] [place] [address] [id number] Director: Pablito Alexander PhD, Phone: [phone] Immunoglobulin light chains. lambda.free [Mass/volume] in Serum or PlasmaOrdered By: Va Forte on 09-24-2023 Immunoglobulin light chains.lambda.free [Mass/Vol] 128.2 mg/L 5.7-26.3 [facility] Leukocytes [#/volume] correc celena for nucleated erythrocytes in Blood by Automated counOrdered By: Va Forte on 09-24-2023 WBC corrected for nucl RBC Auto (Bld) [#/Vol] 7.0 10*3/uL 4.1-10.5 [facility] Lymphocytes Auto (Bld) [#/Vo l]Ordered By: Va Forte on 09-24-2023 Lymphocytes (Bld) [#/Vol] 1.2 10*3/uL 1.00-4.8 [facility] Lymphocytes/100 WBC Auto (Bl d)Ordered By: Va Forte on 09-24-2023 Lymphocytes/100 WBC (Bld) 16.8 % . [facility] MCH Auto (RBC) [Entitic mass ]Ordered By: Va Forte on 09-24-2023 MCH (RBC) [Entitic mass] 31.5 pg 27.5-35.2 [facility] MCHC Auto (RBC) [Mass/Vol]Or dered By: Va Forte on 09-24-2023 MCHC (RBC) [Mass/Vol] 34.9 g/dL 32.5-35.6 [facility] MCV Auto (RBC) [Entitic vol] Ordered By: Va Forte on 09-24-2023 MCV (RBC) [Entitic vol] 90.1 fL 83.5-101 [facility] Monocytes Auto (Bld) [#/Vol] Ordered By: Va Forte on 09-24-2023 Monocytes (Bld) [#/Vol] 0.3 10*3/uL 0.0-0.8 [facility] Monocytes/100 WBC Auto (Bld) Ordered By: Va Forte on 09-24-2023 Monocytes/100 WBC (Bld) 4.6 % . [facility] Neutrophils Auto (Bld) [#/Vo l]Ordered By: Va Forte on 09-24-2023 Neutrophils (Bld) [#/Vol] 5.3 10*3/uL 1.8-7.7 [facility] Neutrophils/100 WBC Auto (Bl d)Ordered By: Va Forte on 09-24-2023 Neutrophils/100 WBC (Bld) 75.6 % . [facility] No Panel InformationOrdered By: Va Forte on 09-24-2023 Estimated GFR (CKD-EPI) 12.341 mL/Min [facility] Creatinine Clearance (Chem 19.04 [facility] Protein Electrophoresis [place] Not observed g/dL Not Observed [facility] Protein Electrophoresis Note See comment . [facility] Comment on above: Protein electrophore sis scan will follow via computer,mail, or jewelry making instructor delivery.Performed at: [facility] [id number] Director: Pabltio Alexander PhD, Phone: [phone] Serum Immunofixation See comment . [facility] Comment on above: No monoclonality det ected. Nucleated erythrocytes [Pres ence] in Blood by Automated countOrdered By: Va Forte on 09-24-2023 Nucleated RBC Auto Ql (Bld) 0.1 /100{WBC} 0-0.5 [facility] Platelet mean volume Auto (B ld) [Entitic vol]Ordered By: Va Forte on 09-24-2023 Platelet mean volume (Bld) [Entitic vol] 7.4 fL 6.6-10.1 [facility] Platelets Auto (Bld) [#/Vol] Ordered By: Va Forte on 09-24-2023 Platelets (Bld) [#/Vol] 186 10*3/uL 150-450 [facility] Potassium [Moles/volume] in Serum or PlasmaOrdered By: Va Forte on 09-24-2023 Potassium [Moles/Vol] 4.2 mmol/L 3.5-5.1 [facility] Protein [Mass/volume] in Ser um or PlasmaOrdered By: Va Forte on 09-24-2023 Protein [Mass/Vol] 6.3 g/dL 6.4-8.9 [facility] Protein [Mass/Vol] 6.5 g/dL 6.0-8.5 [facility] RBC Auto (Bld) [#/Vol]Ordere d By: Va Forte on 09-24-2023 RBC (Bld) [#/Vol] 3.43 10*6/uL 3.90-5.60 [facility] Serum globulin measurement ( mass/volume)Ordered By: Va Forte on 09-24-2023 Globulin (S) [Mass/Vol] 2.8 g/dL 2.2-3.9 [facility] Serum or plasma albumin/glob ulin mass ratioOrdered By: Va Forte on 09-24-2023 Albumin/Globulin [Mass ratio] 1.3 {ratio} 0.7-1.7 [facility] Serum or plasma alpha 1 glob ulin measurement by electrophoresis (mass/volume)Ordered By: Va Forte on 09-24-2023 Alpha 1 globulin Elph [Mass/Vol] 0.2 g/dL 0.0-0.4 [facility] Serum or plasma alpha 2 glob ulin measurement by electrophoresis (mass/volume)Ordered By: Va Forte on 09-24-2023 Alpha 2 globulin Elph [Mass/Vol] 0.7 g/dL 0.4-1.0 [facility] Serum or plasma anion gap de terminationOrdered By: Va Forte on 09-24-2023 Anion gap [Moles/Vol] 10.8 mmol/L 6.0-15.0 [facility] Serum or plasma beta globuli n measurement by electrophoresis (mass/volume)Ordered By: Va Forte on 09-24-2023 Beta globulin Elph [Mass/Vol] 0.8 g/dL 0.7-1.3 [facility] Serum or plasma gamma globul in measurement by electrophoresis (mass/volume)Ordered By: Va Forte on 09-24-2023 Gamma globulin Elph [Mass/Vol] 1.2 g/dL 0.4-1.8 [facility] Sodium [Moles/volume] in Ser um or PlasmaOrdered By: Va Forte on 09-24-2023 Sodium [Moles/Vol] 135 mmol/L 136-145 [facility] Urea nitrogen [Mass/volume] in Serum or PlasmaOrdered By: Va Forte on 09-24-2023 Urea nitrogen [Mass/Vol] 35 mg/dL 7-25 [facility] WBC Auto (Bld) [#/Vol]Ordere d By: Va Forte on 09-24-2023 WBC (Bld) [#/Vol] 7.0 10*3/uL 4.1-10.5 [facility] Activated partial thrombopla stin time (aPTT) in platelet poor plasma by coagulation aOrdered By: Law Cano on 08-18-2023 aPTT Coag (PPP) [Time] 37.6 s 25.1-36.5 [facility] Comment on above: A hematocrit value g reater than 55% may lead to inaccurate results in coagulation testing. Patients having hematocrit values >55% require a special collection tube for coagulation studies. Please contact the laboratory at [phone] for redraw instructions. Alanine aminotransferase [En zymatic activity/volume] in Serum or PlasmaOrdered By: Law Cano on 08-18-2023 ALT [Catalytic activity/Vol] 12 U/L 7-52 [facility] Albumin [Mass/volume] in Ser um or Plasma by Bromocresol green (BCG) dye binding methoOrdered By: Law Cano on 08-18-2023 Albumin BCG dye [Mass/Vol] 3.6 g/dL 3.5-5.7 [facility] Alkaline phosphatase [Enzyma tic activity/volume] in Serum or PlasmaOrdered By: Law Cano on 08-18-2023 ALP [Catalytic activity/Vol] 61 U/L 34-104 [facility] Aspartate aminotransferase [ Enzymatic activity/volume] in Serum or PlasmaOrdered By: Law Cano on 08-18-2023 AST [Catalytic activity/Vol] 13 U/L 13-39 [facility] Bilirubin.total [Mass/volume ] in Serum or PlasmaOrdered By: Law Cano on 08-18-2023 Bilirubin [Mass/Vol] 0.5 mg/dL 0.3-1.0 [facility] Calcium [Mass/volume] in Ser um or PlasmaOrdered By: Law Cano on 08-18-2023 Calcium [Mass/Vol] 8.6 mg/dL 8.6-10.3 [facility] Carbon dioxide, total [Moles /volume] in Serum or PlasmaOrdered By: Law Cano on 08-18-2023 CO2 [Moles/Vol] 26.0 mmol/L 21.0-31.0 [facility] Chloride [Moles/volume] in S gretta or PlasmaOrdered By: Law Cano on 08-18-2023 Chloride [Moles/Vol] 98 mmol/L 98-107 [facility] Creatinine [Mass/volume] in Serum or PlasmaOrdered By: Law Cano on 08-18-2023 Creatinine [Mass/Vol] 6.43 mg/dL 0.70-1.30 [facility] Erythrocyte distribution wid th Auto (RBC) [Ratio]Ordered By: Law Cano on 08-18-2023 Erythrocyte distribution width (RBC) [Ratio] 13.4 % 12.0-14.8 [facility] Globulin Calc (S) [Mass/Vol] Ordered By: Law Cano on 08-18-2023 Globulin (S) [Mass/Vol] 2.6 g/dL [facility] Glucose Glucometer (BldC) [M ass/Vol]Ordered By: Jorge Mederos on 08-18-2023 Glucose [Mass/Vol] 192 mg/dL [facility] Comment on above: Random Glucose Refer ence Range is dependent on time and content of last meal. Glucose of more than 200 mg/dL in a nonstressed, ambulatory subject supports the diagnosis of Diabetes Mellitus. Glucose [Mass/volume] in Ser um or PlasmaOrdered By: Law Cano on 08-18-2023 Glucose [Mass/Vol] 97 mg/dL 70-100 [facility] Comment on above: ADA recommended refe rence rangeRandom Glucose Reference Range is dependent on time and content of last meal. Glucose of more than 200 mg/dL in a nonstressed, ambulatory subject supports the diagnosis of Diabetes Mellitus. Hematocrit Auto (Bld) [Volum e fraction]Ordered By: Law Cano on 08-18-2023 Hematocrit (Bld) [Volume fraction] 34.4 % 38.8-50.0 [facility] Hemoglobin [Mass/volume] in BloodOrdered By: Law Cano on 08-18-2023 Hemoglobin (Bld) [Mass/Vol] 12.0 g/dL 13.0-17.0 [facility] INR in Platelet poor plasma by Coagulation assayOrdered By: Law Cano on 08-18-2023 INR Coag (PPP) [Relative time] 1.1 {INR} [facility] Comment on above: INR Therapeutic Rang [...] RBC Auto (Bld) [#/Vol] 5.4 10*3/uL 4.1-10.5 [facility] MCH Auto (RBC) [Entitic mass ]Ordered By: Law Cano on 08-18-2023 MCH (RBC) [Entitic mass] 31.4 pg 27.5-35.2 [facility] MCHC Auto (RBC) [Mass/Vol]Or dered By: Law Cano on 08-18-2023 MCHC (RBC) [Mass/Vol] 34.8 g/dL 32.5-35.6 [facility] MCV Auto (RBC) [Entitic vol] Ordered By: Law Cano on 08-18-2023 MCV (RBC) [Entitic vol] 90.3 fL 83.5-101 [facility] Magnesium [Mass/volume] in S gretta or PlasmaOrdered By: Law Cano on 08-18-2023 Magnesium [Mass/Vol] 1.9 mg/dL 1.9-2.7 [facility] No Panel InformationOrdered By: Law Cano on 08-18-2023 Estimated GFR (CKD-EPI) 10.590 mL/Min [facility] Creatinine Clearance (Chem 15.78 [facility] Platelet mean volume Auto (B ld) [Entitic vol]Ordered By: Law Cano on 08-18-2023 Platelet mean volume (Bld) [Entitic vol] 8.6 fL 6.6-10.1 [facility] Platelets Auto (Bld) [#/Vol] Ordered By: Law Cano on 08-18-2023 Platelets (Bld) [#/Vol] 99 10*3/uL 150-450 [facility] Potassium [Moles/volume] in Serum or PlasmaOrdered By: Law Cano on 08-18-2023 Potassium [Moles/Vol] 4.0 mmol/L 3.5-5.1 [facility] Protein [Mass/volume] in Ser um or PlasmaOrdered By: Law Cano on 08-18-2023 Protein [Mass/Vol] 6.2 g/dL 6.4-8.9 [facility] Prothrombin time (PT)Ordered By: Law Cano on 08-18-2023 PT Coag (PPP) [Time] 12.0 s 9.0-12.9 [facility] Comment on above: A hematocrit value g reater than 55% may lead to inaccurate results in coagulation testing. Patients having hematocrit values >55% require a special collection tube for coagulation studies. Please contact the laboratory at [phone] for redraw instructions. RBC Auto (Bld) [#/Vol]Ordere d By: Law Nolbertoosei on 08-18-2023 RBC (Bld) [#/Vol] 3.81 10*6/uL 3.90-5.60 [facility] Serum or plasma albumin/glob ulin mass ratioOrdered By: Law Arvizusojv on 08-18-2023 Albumin/Globulin [Mass ratio] 1.4 {ratio} [facility] Serum or plasma anion gap de terminationOrdered By: Law Cano on 08-18-2023 Anion gap [Moles/Vol] 12.0 mmol/L 6.0-15.0 [facility] Sodium [Moles/volume] in Ser um or PlasmaOrdered By: Law Cano on 08-18-2023 Sodium [Moles/Vol] 132 mmol/L 136-145 [facility] Troponin I.cardiac [Mass/vol ume] in Serum or Plasma by Detection limit <= 0.01 ng/Ordered By: Law Cano on 08-18-2023 Troponin I.cardiac DL <= 0.01 ng/mL [Mass/Vol] 38.1 pg/mL 0.0-20.0 [facility] Urea nitrogen [Mass/volume] in Serum or PlasmaOrdered By: Law Cano on 08-18-2023 Urea nitrogen [Mass/Vol] 40 mg/dL 03-12 [facility] Physician Referralon 023 Physician Referral [id number] F Normal [facility] Alanine aminotransferase [En zymatic activity/volume] in Serum or PlasmaOrdered By: Haydee Lira on 03-12-2023 ALT [Catalytic activity/Vol] 13 U/L [facility] Albumin [Mass/volume] in Ser um or PlasmaOrdered By: Haydee Lira on 03-12-2023 Albumin [Mass/Vol] 2.9 g/dL 2.9-4.4 [facility] Albumin [Mass/volume] in Ser um or Plasma by Bromocresol green (BCG) dye binding methoOrdered By: Haydee Lira on 03-12-2023 Albumin BCG dye [Mass/Vol] 3.4 g/dL 3.5-5.7 [facility] Albumin/Protein.total in 24 hour Urine by ElectrophoresisOrdered By: Haydee Lira on 03-12-2023 Albumin Elph (24H U) [Mass fraction] 58.9 % . [facility] Alkaline phosphatase [Enzyma tic activity/volume] in Serum or PlasmaOrdered By: Haydee Lira on 03-12-2023 ALP [Catalytic activity/Vol] 82 U/L 34-104 [facility] Aspartate aminotransferase [ Enzymatic activity/volume] in Serum or PlasmaOrdered By: Haydee Lira on 03-12-2023 AST [Catalytic activity/Vol] 12 U/L 13-39 [facility] Basophils Auto (Bld) [#/Vol] Ordered By: Haydee Lira on 03-12-2023 Basophils (Bld) [#/Vol] 0.1 10*3/uL 0.0-0.2 [facility] Basophils/100 WBC Auto (Bld) Ordered By: Haydee Lira on 03-12-2023 Basophils/100 WBC (Bld) 1.7 % . [facility] Bilirubin.total [Mass/volume ] in Serum or PlasmaOrdered By: Haydee Lira on 03-12-2023 Bilirubin [Mass/Vol] 0.3 mg/dL 0.3-1.0 [facility] Calcium [Mass/volume] in Ser um or PlasmaOrdered By: Haydee Lira on 03-12-2023 Calcium [Mass/Vol] 8.0 mg/dL 8.6-10.3 [facility] Carbon dioxide, total [Moles /volume] in Serum or PlasmaOrdered By: Haydee Lira on 03-12-2023 CO2 [Moles/Vol] 28.8 mmol/L 21.0-31.0 [facility] Chloride [Moles/volume] in S gretta or PlasmaOrdered By: Haydee Lira on 03-12-2023 Chloride [Moles/Vol] 99 mmol/L 98-107 [facility] Creatinine [Mass/volume] in Serum or PlasmaOrdered By: Haydee Lira on 03-12-2023 Creatinine [Mass/Vol] 4.29 mg/dL 0.70-1.30 [facility] Eosinophils Auto (Bld) [#/Vo l]Ordered By: Haydee Lira on 03-12-2023 Eosinophils (Bld) [#/Vol] 0.1 10*3/uL 0.0-0.45 [facility] Eosinophils/100 WBC Auto (Bl d)Ordered By: Haydee Lira on 03-12-2023 Eosinophils/100 WBC (Bld) 2.3 % . [facility] Erythrocyte distribution wid th Auto (RBC) [Ratio]Ordered By: Haydee Lira on 03-12-2023 Erythrocyte distribution width (RBC) [Ratio] 12.6 % 12.0-14.8 [facility] Gamma globulin/Protein.total in 24 hour Urine by ElectrophoresisOrdered By: Haydee Lira on 03-12-2023 Gamma globulin Elph (24H U) [Mass fraction] 14.7 % . [facility] Globulin Calc (S) [Mass/Vol] Ordered By: Haydee Lira on 03-12-2023 Globulin (S) [Mass/Vol] 2.6 g/dL [facility] Glucose [Mass/volume] in Ser um or PlasmaOrdered By: Haydee Lira on 03-12-2023 Glucose [Mass/Vol] 358 mg/dL 70-100 [facility] Comment on above: ADA recommended refe rence rangeRandom Glucose Reference Range is dependent on time and content of last meal. Glucose of more than 200 mg/dL in a nonstressed, ambulatory subject supports the diagnosis of Diabetes Mellitus. Hematocrit Auto (Bld) [Volum e fraction]Ordered By: Haydee Lira on 03-12-2023 Hematocrit (Bld) [Volume fraction] 27.5 % 38.8-50.0 [facility] Hemoglobin [Mass/volume] in BloodOrdered By: Haydee Lira on 03-12-2023 Hemoglobin (Bld) [Mass/Vol] 9.5 g/dL 13.0-17.0 [facility] IgA [Mass/volume] in Serum o r PlasmaOrdered By: Haydee Lira on 03-12-2023 IgA [Mass/Vol] 307 mg/dL 90-386 [facility] IgG [Mass/volume] in Serum o r PlasmaOrdered By: Haydee Lira on 03-12-2023 IgG [Mass/Vol] 1059 mg/dL [phone] [facility] IgM [Mass/volume] in Serum o r PlasmaOrdered By: Haydee Lira on 03-12-2023 IgM [Mass/Vol] 160 mg/dL 20-172 [facility] Immunoglobulin light chains. kappa.free [Mass/volume] in SerumOrdered By: Haydee Lira on 03-12-2023 Immunoglobulin light chains.kappa.free (S) [Mass/Vol] 166.7 mg/L 3.3-19.4 [facility] Immunoglobulin light chains. kappa.free/Immunoglobulin light chains.lambda.free [MassOrdered By: Haydee Lira on 03-12-2023 Immunoglobulin light chains.kappa.free/Immun oglobulin light chains.lambda.free (S) [Mass ratio] 1.54 0.26-1.65 [facility] Comment on above: Performed at: [facility] [address] [id number] Director: Pablito Alexander PhD, Phone: [phone] Immunoglobulin light chains. lambda.free [Mass/volume] in Serum or PlasmaOrdered By: Haydee Lira on 03-12-2023 Immunoglobulin light chains.lambda.free [Mass/Vol] 108.0 mg/L 5.7-26.3 [facility] [place] light chains.free [Mas s/volume] in UrineOrdered By: Jorje Small on 03-12-2023 Immunoglobulin light chains.kappa.free (U) [Mass/Vol] 206.55 mg/L 1.17-86.46 [facility] [place] light chains.free/[place] light chains.free [Mass Ratio] in UrineOrdered By: Jorje Small on 03-12-2023 Immunoglobulin light chains.kappa.free/Immun oglobulin light chains.lambda.free (U) [Mass ratio] 3.03 1.83-14.26 [facility] Comment on above: Performed at: [facility] [address] [id number] Director: Saulo Araujo MD, Phone: [phone] Lambda light chains.free [Ma ss/volume] in UrineOrdered By: Jorje Small on 03-12-2023 Immunoglobulin light chains.lambda.free (U) [Mass/Vol] 68.24 mg/L 0.27-15.21 [facility] Leukocytes [#/volume] correc celena for nucleated erythrocytes in Blood by Automated counOrdered By: Haydee Lira on 03-12-2023 WBC corrected for nucl RBC Auto (Bld) [#/Vol] 6.1 10*3/uL 4.1-10.5 [facility] Lymphocytes Auto (Bld) [#/Vo l]Ordered By: Haydee Lira on 03-12-2023 Lymphocytes (Bld) [#/Vol] 1.2 10*3/uL 1.00-4.8 [facility] Lymphocytes/100 WBC Auto (Bl d)Ordered By: Haydee Lira on 03-12-2023 Lymphocytes/100 WBC (Bld) 19.5 % . [facility] MCH Auto (RBC) [Entitic mass ]Ordered By: Haydee Lira on 03-12-2023 MCH (RBC) [Entitic mass] 30.2 pg 27.5-35.2 [facility] MCHC Auto (RBC) [Mass/Vol]Or dered By: Haydee Lira on 03-12-2023 MCHC (RBC) [Mass/Vol] 34.6 g/dL 32.5-35.6 [facility] MCV Auto (RBC) [Entitic vol] Ordered By: Haydee Lira on 03-12-2023 MCV (RBC) [Entitic vol] 87.2 fL 83.5-101 [facility] Monocytes Auto (Bld) [#/Vol] Ordered By: Haydee Lira on 03-12-2023 Monocytes (Bld) [#/Vol] 0.3 10*3/uL 0.0-0.8 [facility] Monocytes/100 WBC Auto (Bld) Ordered By: Haydee Lira on 03-12-2023 Monocytes/100 WBC (Bld) 5.0 % . [facility] Neutrophils Auto (Bld) [#/Vo l]Ordered By: Haydee Lira on 03-12-2023 Neutrophils (Bld) [#/Vol] 4.4 10*3/uL 1.8-7.7 [facility] Neutrophils/100 WBC Auto (Bl d)Ordered By: Haydee Lira on 03-12-2023 Neutrophils/100 WBC (Bld) 71.5 % . [facility] No Panel InformationOrdered By: Haydee Lira on 03-12-2023 Estimated GFR (CKD-EPI) 17.210 mL/Min [facility] Creatinine Clearance (Chem 25.39 [facility] Protein Electrophoresis [place] Not observed g/dL Not Observed [facility] Protein Electrophoresis Note See comment . [facility] Comment on above: Protein electrophore sis scan will follow via computer,mail, or jewelry making instructor delivery.Performed at: [employer] [address] [id number] Director: Pablito Alexander PhD, Phone: [phone] Serum Immunofixation Comment: . [facility] Comment on above: Presence of monoclon al protein is unclear at this time. Suggestrepeat in 3 to 6 months if clinically indicated. Urine Random Prot Electrophor Note See comment . [facility] Comment on above: Protein electrophore sis scan will follow via computer,mail, or jewelry making instructor delivery.Performed at: [employer] [address] [id number] Director: Pablito Alexander PhD, Phone: [phone] Nucleated erythrocytes [Pres ence] in Blood by Automated countOrdered By: Haydee Lira on 03-12-2023 Nucleated RBC Auto Ql (Bld) 0.0 /100{WBC} 0-0.5 [facility] Platelet mean volume Auto (B ld) [Entitic vol]Ordered By: Haydee Lira on 03-12-2023 Platelet mean volume (Bld) [Entitic vol] 8.4 fL 6.6-10.1 [facility] Platelets Auto (Bld) [#/Vol] Ordered By: Haydee Lira on 03-12-2023 Platelets (Bld) [#/Vol] 175 10*3/uL 150-450 [facility] Potassium [Moles/volume] in Serum or PlasmaOrdered By: Haydee Lira on 03-12-2023 Potassium [Moles/Vol] 4.4 mmol/L 3.5-5.1 [facility] Protein [Mass/volume] in Ser um or PlasmaOrdered By: Haydee Lira on 03-12-2023 Protein [Mass/Vol] 6.0 g/dL 6.4-8.9 [facility] Protein [Mass/Vol] 5.7 g/dL 6.0-8.5 [facility] Protein [Mass/volume] in Uri neOrdered By: Haydee Lira on 03-12-2023 Protein (U) [Mass/Vol] 468.8 mg/dL Not Estab. [facility] Comment on above: Results confirmed on dilution. Protein.monoclonal/Protein.t otal in 24 hour Urine by ElectrophoresisOrdered By: Haydee Lira on 03-12-2023 Protein.monoclonal Elph (24H U) [Mass fraction] Not observed % Not Observed [facility] RBC Auto (Bld) [#/Vol]Ordere d By: Haydee Lira on 03-12-2023 RBC (Bld) [#/Vol] 3.15 10*6/uL 3.90-5.60 [facility] Serum globulin measurement ( mass/volume)Ordered By: Haydee Lira on 03-12-2023 Globulin (S) [Mass/Vol] 2.8 g/dL 2.2-3.9 [facility] Serum or plasma albumin/glob ulin mass ratioOrdered By: Haydee Lira on 03-12-2023 Albumin/Globulin [Mass ratio] 1.3 {ratio} [facility] Albumin/Globulin [Mass ratio] 1.0 {ratio} 0.7-1.7 [facility] Serum or plasma alpha 1 glob ulin measurement by electrophoresis (mass/volume)Ordered By: Haydee Lira on 03-12-2023 Alpha 1 globulin Elph [Mass/Vol] 0.2 g/dL 0.0-0.4 [facility] Serum or plasma alpha 2 glob ulin measurement by electrophoresis (mass/volume)Ordered By: Haydee Lira on 03-12-2023 Alpha 2 globulin Elph [Mass/Vol] 0.7 g/dL 0.4-1.0 [facility] Serum or plasma anion gap de terminationOrdered By: Haydee Lira on 03-12-2023 Anion gap [Moles/Vol] 12.6 mmol/L 6.0-15.0 [facility] Serum or plasma beta globuli n measurement by electrophoresis (mass/volume)Ordered By: Haydee Lira on 03-12-2023 Beta globulin Elph [Mass/Vol] 0.8 g/dL 0.7-1.3 [facility] Serum or plasma gamma globul in measurement by electrophoresis (mass/volume)Ordered By: Haydee Lira on 03-12-2023 Gamma globulin Elph [Mass/Vol] 1.1 g/dL 0.4-1.8 [facility] Sodium [Moles/volume] in Ser um or PlasmaOrdered By: Haydee Lira on 03-12-2023 Sodium [Moles/Vol] 136 mmol/L 136-145 [facility] Urea nitrogen [Mass/volume] in Serum or PlasmaOrdered By: Haydee Lira on 03-12-2023 Urea nitrogen [Mass/Vol] 43 mg/dL 03-12 [facility] Urine alpha 1 globulin/total protein by electrophoresisOrdered By: Haydee Lira on 03-12-2023 Alpha 1 globulin Elph (U) [Mass fraction] 7.3 % . [facility] Urine alpha 2 globulin/total protein ratio by electrophoresisOrdered By: Hayede Lira on 03-12-2023 Alpha 2 globulin Elph (U) [Mass fraction] 6.5 % . [facility] Urine beta globulin measurem ent by electrophoresis (mass/volume)Ordered By: Haydee Lira on 03-12-2023 Beta globulin Elph (U) [Mass/Vol] 12.5 % . [facility] WBC Auto (Bld) [#/Vol]Ordere d By: Haydee Lira on 03-12-2023 WBC (Bld) [#/Vol] 6.1 10*3/uL 4.1-10.5 [facility] Albumin [Mass/volume] in Ser um or Plasma by Bromocresol green (BCG) dye binding methoOrdered By: Angel Mejía on 02-27-2023 Albumin BCG dye [Mass/Vol] 3.3 g/dL 3.5-5.7 [facility] Calcium [Mass/volume] in Ser um or PlasmaOrdered By: Angel Mejía on 02-27-2023 Calcium [Mass/Vol] 7.3 mg/dL 8.6-10.3 [facility] Carbon dioxide, total [Moles /volume] in Serum or PlasmaOrdered By: Angel Mejía on 02-27-2023 CO2 [Moles/Vol] 20.1 mmol/L 21.0-31.0 [facility] Chloride [Moles/volume] in S gretta or PlasmaOrdered By: Angel Mejía on 02-27-2023 Chloride [Moles/Vol] 107 mmol/L 98-107 [facility] Creatinine [Mass/volume] in Serum or PlasmaOrdered By: Angel Mejía on 02-27-2023 Creatinine [Mass/Vol] 6.60 mg/dL 0.70-1.30 [facility] Erythrocyte distribution wid th Auto (RBC) [Ratio]Ordered By: Angel Mejía on 02-27-2023 Erythrocyte distribution width (RBC) [Ratio] 13.2 % 12.0-14.8 [facility] Ferritin [Mass/volume] in Se rum or PlasmaOrdered By: Angel Mejía on 02-27-2023 Ferritin [Mass/Vol] 73.2 ng/mL 23.9-336.2 [facility] Glucose [Mass/volume] in Ser um or PlasmaOrdered By: Angel Mejía on 02-27-2023 Glucose [Mass/Vol] 173 mg/dL 70-100 [facility] Comment on above: ADA recommended refe rence rangeRandom Glucose Reference Range is dependent on time and content of last meal. Glucose of more than 200 mg/dL in a nonstressed, ambulatory subject supports the diagnosis of Diabetes Mellitus. Hematocrit Auto (Bld) [Volum e fraction]Ordered By: Angel Mejía on 02-27-2023 Hematocrit (Bld) [Volume fraction] 28.0 % 38.8-50.0 [facility] Hemoglobin [Mass/volume] in BloodOrdered By: Angel Mejía on 02-27-2023 Hemoglobin (Bld) [Mass/Vol] 9.3 g/dL 13.0-17.0 [facility] Hepatitis B virus surface Ag [Presence] in Serum or Plasma by ImmunoassayOrdered By: Angel Mejía on 02-27-2023 HBV surface Ag IA Ql Negative Negative [facility] Hepatitis C virus IgG Ab [Pr esence] in Serum or Plasma by ImmunoassayOrdered By: Angel Mejía on 02-27-2023 HCV IgG IA Ql Non-Reactive Non Reactive [facility] Hepatitis C virus RNA [Units /volume] (viral load) in Serum or Plasma by HAO with probOrdered By: Angel Mejía on 02-27-2023 HCV RNA HAO+probe Qn N/A [facility] Hepatitis C virus RNA [log u nits/volume] (viral load) in Serum or Plasma by HAO withOrdered By: Angel Mejía on 02-27-2023 HCV RNA HAO+probe [Log units/Vol] N/A [facility] Iron [Mass/volume] in Serum or PlasmaOrdered By: Angel Mejía on 02-27-2023 Iron [Mass/Vol] 64 ug/dL 50-212 [facility] Iron binding capacity [Mass/ volume] in Serum or PlasmaOrdered By: Angel Mejía on 02-27-2023 Iron binding capacity [Mass/Vol] 224 ug/dL 255-450 [facility] Iron saturation [Mass Fracti on] in Serum or PlasmaOrdered By: Angel Mejía on 02-27-2023 Iron saturation [Mass fraction] 28.6 % 20-50 [facility] Leukocytes [#/volume] correc celena for nucleated erythrocytes in Blood by Automated counOrdered By: Angel Mejía on 02-27-2023 WBC corrected for nucl RBC Auto (Bld) [#/Vol] 5.9 10*3/uL 4.1-10.5 [facility] MCH Auto (RBC) [Entitic mass ]Ordered By: Angel Mejía on 02-27-2023 MCH (RBC) [Entitic mass] 29.0 pg 27.5-35.2 [facility] MCHC Auto (RBC) [Mass/Vol]Or dered By: Angel Mejía on 02-27-2023 MCHC (RBC) [Mass/Vol] 33.4 g/dL 32.5-35.6 [facility] MCV Auto (RBC) [Entitic vol] Ordered By: Angel Mejía on 02-27-2023 MCV (RBC) [Entitic vol] 86.9 fL 83.5-101 [facility] Magnesium [Mass/volume] in S gretta or PlasmaOrdered By: Angel Mejía on 02-27-2023 Magnesium [Mass/Vol] 1.7 mg/dL 1.9-2.7 [facility] No Panel InformationOrdered By: Angel Mejía on 02-27-2023 Estimated GFR (CKD-EPI) 10.328 mL/Min [facility] Hepatitis A IgM Antibody Negative Negative [facility] Hepatitis B Core IgM Antibody Negative Negative [facility] Hepatitis C Interpretation See comment . [facility] Comment on above: Not infected with HC V unless early or acute infection issuspected (which may be delayed in an immunocompromisedindividual), or other evidence exists to indicate HCVinfection.Performed at: [facility] [id number] Director: Pablito Alexander PhD, Phone: [phone] Hepatitis C RNA Quantitative N/A [facility] Creatinine Clearance (Chem N/A [facility] Parathyrin.intact [Mass/volu me] in Serum or PlasmaOrdered By: Angel Mejía on 02-27-2023 Parathyrin.intact [Mass/Vol] 713.5 pg/mL [facility] Phosphate [Mass/volume] in S gretta or PlasmaOrdered By: Angel Mejía on 02-27-2023 Phosphate [Mass/Vol] 7.2 mg/dL 3.7-7.2 [facility] Platelet mean volume Auto (B ld) [Entitic vol]Ordered By: Angel Mejía on 02-27-2023 Platelet mean volume (Bld) [Entitic vol] 8.7 fL 6.6-10.1 [facility] Platelets Auto (Bld) [#/Vol] Ordered By: Angel Mejía on 02-27-2023 Platelets (Bld) [#/Vol] 134 10*3/uL 150-450 [facility] Potassium [Moles/volume] in Serum or PlasmaOrdered By: Angel Mejía on 02-27-2023 Potassium [Moles/Vol] 5.1 mmol/L 3.5-5.1 [facility] RBC Auto (Bld) [#/Vol]Ordere d By: Angel Mejía on 02-27-2023 RBC (Bld) [#/Vol] 3.22 10*6/uL 3.90-5.60 [facility] Serum or plasma anion gap de terminationOrdered By: Angel Mejía on 02-27-2023 Anion gap [Moles/Vol] 13.0 mmol/L 6.0-15.0 [facility] Sodium [Moles/volume] in Ser um or PlasmaOrdered By: Angel Mejía on 02-27-2023 Sodium [Moles/Vol] 135 mmol/L 136-145 [facility] Transferrin [Mass/volume] in Serum or PlasmaOrdered By: Angel Mejía on 02-27-2023 Transferrin [Mass/Vol] 160 mg/dL 203-362 [facility] Urea nitrogen [Mass/volume] in Serum or PlasmaOrdered By: Angel Mejía on 02-27-2023 Urea nitrogen [Mass/Vol] 78 mg/dL 7-25 [facility] Vitamin D+Metabolites [Mass/ volume] in Serum or PlasmaOrdered By: Angel Mejía on 02-27-2023 Vitamin D+Metabolites [Mass/Vol] 23.7 ng/mL 30-100 [facility] Comment on above: VITAMIN D STATUS [...] disease), CHF (congestive heart failure), History of MD (myocardial infarction) Renew: Aspirin 81 MG Oral [...] we can help. You may also call [phone]; Status:Complete - Retrospective Authorization; Done: [id number] Tobacco Use Screening; Status:Complete; Done: [id number] Patient Instructions Please bring all medicines, vitamins, [...] drug-eluting stents. He has had previous anterior MD with revascularization of the LAD. He has [...] No alcohol use Vitals Vital Signs Recorded: [id number] 09:21AM Heart Rate78, R Radial Twnovihj785, RUE, Sitting Eoqnkqmlk83, RUE, Sitting Height6 ft Rhudpo500 lb BMI Iaxhumkhih99.43 kg/m2 BSA Calculated1.93 Tobacco Usea) Yes Patient [...] Fall risk assessment c) Not medically indicated -[facility] [employer] DO Work Phone: Tobacco use status CP a) Yes M P-[facility] [employer] DO Work Phone: Tobacco Screening. Yes -[facility] [employer] DO Work Phone: Activated partial thrombopla stin time (aPTT) in platelet poor plasma by coagulation aOrdered By: Denilson Gomez on 01-31-2023 aPTT Coag (PPP) [Time] 40.7 s 25.1-36.5 [facility] Basophils Auto (Bld) [#/Vol] Ordered By: Denilson Gomez on 01-31-2023 Basophils (Bld) [#/Vol] 0.1 10*3/uL 0.0-0.2 [facility] Basophils/100 WBC Auto (Bld) Ordered By: Denilson Gomez on 01-31-2023 Basophils/100 WBC (Bld) 1.7 % . [facility] Carbon dioxide, total [Moles /volume] in Serum or PlasmaOrdered By: Denilson Gomez on 01-31-2023 CO2 [Moles/Vol] 22.2 mmol/L 21.0-31.0 [facility] Chloride [Moles/volume] in S gretta or PlasmaOrdered By: Denilson Gomez on 01-31-2023 Chloride [Moles/Vol] 106 mmol/L 98-107 [facility] Cholesterol [Mass/volume] in Serum or PlasmaOrdered By: Denilson Gomez on 01-31-2023 Cholesterol [Mass/Vol] 144 mg/dL 140-200 [facility] Comment on above: Chol less than 200 m g/dl low riskChol 201-239 mg/dl borderline riskChol 240 mg/dl and greater high risk Cholesterol in LDL Calc [Mas s/Vol]Ordered By: Denilson Gomez on 01-31-2023 Cholesterol in LDL [Mass/Vol] 95 mg/dL 0-100 [facility] Comment on above: LDL ATP III CLASSIFI CATIONLDL less than 100 mg/dL OptimalLDL 100-129 mg/dL Near or above optimalLDL 130-159 mg/dL Borderline highLDL 160-189 mg/dL HighLDL greater than 189 mg/dL Very high Cholesterol in VLDL Calc [Ma ss/Vol]Ordered By: Denilson Gomez on 01-31-2023 Cholesterol in VLDL [Mass/Vol] 20 mg/dL [facility] Creatinine [Mass/volume] in Serum or PlasmaOrdered By: Denilson Gomez on 01-31-2023 Creatinine [Mass/Vol] 5.36 mg/dL 0.70-1.30 [facility] Eosinophils Auto (Bld) [#/Vo l]Ordered By: Denilson Gomez on 01-31-2023 Eosinophils (Bld) [#/Vol] 0.2 10*3/uL 0.0-0.45 [facility] Eosinophils/100 WBC Auto (Bl d)Ordered By: Denilson Gomez on 01-31-2023 Eosinophils/100 WBC (Bld) 2.9 % . [facility] Erythrocyte distribution wid th Auto (RBC) [Ratio]Ordered By: Denilson Gomez on 01-31-2023 Erythrocyte distribution width (RBC) [Ratio] 12.9 % 12.0-14.8 [facility] Hematocrit Auto (Bld) [Volum e fraction]Ordered By: Denilson Gomez on 01-31-2023 Hematocrit (Bld) [Volume fraction] 26.0 % 38.8-50.0 [facility] Hemoglobin [Mass/volume] in BloodOrdered By: Denilson Gomez on 01-31-2023 Hemoglobin (Bld) [Mass/Vol] 9.1 g/dL 13.0-17.0 [facility] Laboratory - Chemistry and C hemistry - challengeon 01-31-2023 Cholesterol [Mass/Vol] 144\S\144 Normal 140-200 [facility] marianne 250 DO Work Phone: Comment on above: Chol less than 200 m g/dl low risk Chol 201-239 mg/dl borderline risk Chol 240 mg/dl and greater high risk Cholesterol in LDL [Mass/Vol] 95\S\95 Normal 0-100 [facility] marianne 250 DO Work Phone: Comment on above: LDL ATP III CLASSIFI CATION LDL less than 100 mg/dL Optimal LDL 100-129 mg/dL Near or above optimal LDL 130-159 mg/dL Borderline high LDL 160-189 mg/dL High LDL greater than 189 mg/dL Very high Laboratory - CoagulationOrde red By: Denilson Gomez on 01-31-2023 PT Coag (PPP) [Time] 12.7 s 9.0-12.9 [facility] Leukocytes [#/volume] correc celena for nucleated erythrocytes in Blood by Automated counOrdered By: Denilson Gomez on 01-31-2023 WBC corrected for nucl RBC Auto (Bld) [#/Vol] 6.4 10*3/uL 4.1-10.5 [facility] Lymphocytes Auto (Bld) [#/Vo l]Ordered By: Denilson Gomez on 01-31-2023 Lymphocytes (Bld) [#/Vol] 1.0 10*3/uL 1.00-4.8 [facility] Lymphocytes/100 WBC Auto (Bl d)Ordered By: Denilson Gomez on 01-31-2023 Lymphocytes/100 WBC (Bld) 16.1 % . [facility] MCH Auto (RBC) [Entitic mass ]Ordered By: Denilson Gomez on 01-31-2023 MCH (RBC) [Entitic mass] 30.1 pg 27.5-35.2 [facility] MCHC Auto (RBC) [Mass/Vol]Or dered By: Denilson Gomez on 01-31-2023 MCHC (RBC) [Mass/Vol] 34.9 g/dL 32.5-35.6 [facility] MCV Auto (RBC) [Entitic vol] Ordered By: Denilson Gomez on 01-31-2023 MCV (RBC) [Entitic vol] 86.3 fL 83.5-101 [facility] Monocytes Auto (Bld) [#/Vol] Ordered By: Denilson Gomez on 01-31-2023 Monocytes (Bld) [#/Vol] 0.3 10*3/uL 0.0-0.8 [facility] Monocytes/100 WBC Auto (Bld) Ordered By: Denilson Gomez on 01-31-2023 Monocytes/100 WBC (Bld) 4.5 % . [facility] Neutrophils Auto (Bld) [#/Vo l]Ordered By: Denilson Gomez on 01-31-2023 Neutrophils (Bld) [#/Vol] 4.8 10*3/uL 1.8-7.7 [facility] Neutrophils/100 WBC Auto (Bl d)Ordered By: Denilson Gomez on 01-31-2023 Neutrophils/100 WBC (Bld) 74.8 % . [facility] No Panel InformationOrdered By: Denilson Gomez on 01-31-2023 Estimated GFR (CKD-EPI) 13.256 mL/Min [facility] Creatinine Clearance (Chem N/A [facility] No Panel Informationon 01-31 0.1\S\0.1 Normal 0.0-0.2 [facility] marianne 250 DO Work Phone: Comment on above: PERFORMED BY:[place] [id number] [address] [place], [place] [id number] MEDICAL DIRECTORLEVY GILES M.D. 0.2\S\0.2 Normal 0.0-0.45 [facility] marianne 250 DO Work Phone: 0.3\S\0.3 Normal 0.0-0.8 [facility] marianne 250 DO Work Phone: [phone] 1.0\S\1.0 Normal 1.00-4.8 -[facility] marianne 250 DO Work Phone: [phone] 4.8\S\4.8 Normal 1.8-7.7 [facility] marianne 250 DO Work Phone: [phone] 0.0\S\0.0 Normal 0-0.5 [facility]ianne 250 DO Work Phone: [phone] 1.7\S\1.7 Normal . [facility]ianne 250 DO Work Phone: [phone] 2.9\S\2.9 Normal . [facility]ianne 250 DO Work Phone: [phone] 4.5\S\4.5 Normal . [facility]ianne 250 DO Work Phone: [phone] 16.1\S\16.1 Normal . [facility] marianne 250 DO Work Phone: [phone] 74.8\S\74.8 Normal . [facility] marianne 250 DO Work Phone: [phone] 8.5\S\8.5 Normal 6.6-10.1 [facility] marianne 250 DO Work Phone: [phone] 159\S\159 Normal 150-450 [facility] marianne 250 DO Work Phone: [phone] 12.9\S\12.9 Normal 12.0-14.8 [facility] marianne 250 DO Work Phone: [phone] 34.9\S\34.9 Normal 32.5-35.6 [facility] marianne 250 DO Work Phone: [phone] 30.1\S\30.1 Normal 27.5-35.2 [facility] marianne 250 DO Work Phone: [phone] 86.3\S\86.3 Normal 83.5-101 [facility] marianne 250 DO Work Phone: [phone] 26.0\S\26.0 below low threshold 38.8-50.0 [facility] marianne 250 DO Work Phone: 9.1\S\9.1 below low threshold 13.0-17.0 [facility] marianne 250 DO Work Phone: [phone] 3.02\S\3.02 below low threshold 3.90-5.60 [facility] [employer] Solutionsstacy marianne 250 DO Work Phone: [phone] 6.4\S\6.4 Normal 4.1-10.5 [facility] [employer] marianne 250 DO Work Phone: 40.7\S\40.7 above high threshold 25.1-36.5 [facility] [employer] marianne 250 DO Work Phone: Comment on above: PERFORMED BY:[facility]111[facility] [place] [id number] MEDICAL DIRECTORLEVY GILES M.D. 1.1\S\1.1 Normal [facility] [employer] marianne 250 DO Work Phone: Comment on [...] valves: 3 - 4.5 12.7\S\12.7 Normal 9.0-12.9 [facility] 250 DO Work Phone: 12.8\S\12.8 Normal 6.0-15.0 [facility]ne [facility] DO Work Phone: 22.2\S\22.2 Normal 21.0-31.0 [facility] HeartTeri lopes 250 DO Work Phone: 106\S\106 Normal 98-107 [facility] HeartTeri lopes 250 DO Work Phone: 5.0\S\5.0 Normal 3.5-5.1 [facility] HeartTeri lopes 250 DO Work Phone: 136\S\136 Normal 136-145 [facility] Justin lopes 250 DO Work Phone: 71\S\71 above high threshold 7-25 [facility] HeartTeri lopes 250 DO Work Phone: [phone] 13.256\S\13.256 Normal [facility] Justin lopes 250 DO Work Phone: 5.36\S\5.36 above high threshold 0.70-1.30 [facility] Justin lopes 250 DO Work Phone: 5.1\S\5.1 Normal <5.0 [facility] HeartTeri lopes 250 DO Work Phone: Comment on above: PERFORMED BY:[place] [id number], [place] [id number] MEDICAL DIRECTORLEVY GILES M.D. 20\S\20 Normal [facility] Justin lopes 250 DO Work Phone: 103\S\103 Normal 0-149 [facility] Justin lopes 250 DO Work Phone: Comment on above: TRIG ATP III CLASSIF ICATION TRIG less than 150 mg/dL Normal TRIG 150-199 mg/dL Borderline high TRIG 200-500 mg/dL High TRIG greater than 500 mg/dL Very high Standard traceable to the Center for Disease Conrtrol and Prevention (CDC) test method. 28\S\28 Normal 23-92 [facility] Justin lopes 250 DO Work Phone: Comment on above: HDL CHOL ATP-III CLA SSIFICATION Cardiovascular Risk HDL > or equal to 60 mg/dL LOW HDL < 40 mg/dL HIGH Nucleated erythrocytes [Pres ence] in Blood by Automated countOrdered By: Denilson Gomez on 01-31-2023 Nucleated RBC Auto Ql (Bld) 0.0 /100{WBC} 0-0.5 [facility] Platelet mean volume Auto (B ld) [Entitic vol]Ordered By: Denilson Gomez on 01-31-2023 Platelet mean volume (Bld) [Entitic vol] 8.5 fL 6.6-10.1 [facility] Platelet poor plasma interna tional normalized ratio (INR) by coagulation assay (relatOrdered By: Denilson Gomez on 01-31-2023 INR Coag (PPP) [Relative time] 1.1 {INR} [facility] Comment on above: INR Therapeutic Rang [...] 01-31-2023 Platelets (Bld) [#/Vol] 159 10*3/uL 150-450 [facility] Potassium [Moles/volume] in Serum or PlasmaOrdered By: Denilson Gomez on 01-31-2023 Potassium [Moles/Vol] 5.0 mmol/L 3.5-5.1 [facility] RBC Auto (Bld) [#/Vol]Ordere d By: Denilson Gomez on 01-31-2023 RBC (Bld) [#/Vol] 3.02 10*6/uL 3.90-5.60 [facility] Serum or plasma anion gap de terminationOrdered By: Denilson Gomez on 01-31-2023 Anion gap [Moles/Vol] 12.8 mmol/L 6.0-15.0 [facility] Serum or plasma high density lipoprotein (HDL) cholesterol measurementOrdered By: Denilson Gomez on 01-31-2023 Cholesterol in HDL [Mass/Vol] 28 mg/dL 23-92 [facility] Comment on above: HDL CHOL ATP-III CLA SSIFICATION Cardiovascular RiskHDL > or equal to 60 mg/dL LOWHDL < 40 mg/dL HIGH Serum or plasma total choles terol/high density lipoprotein (HDL) cholesterol mass ratOrdered By: Denilson Gomez on 01-31-2023 Cholesterol.total/Rosalind sterol in HDL [Mass ratio] 5.1 {ratio} <5.0 [facility] Sodium [Moles/volume] in Ser um or PlasmaOrdered By: Denilson Gomez on 01-31-2023 Sodium [Moles/Vol] 136 mmol/L 136-145 [facility] Triglyceride [Mass/volume] i n Serum or PlasmaOrdered By: Denilson Gomez on 01-31-2023 Triglyceride [Mass/Vol] 103 mg/dL 0-149 [facility] Comment on above: TRIG ATP III CLASSIF ICATIONTRIG less than 150 mg/dL NormalTRIG 150-199 mg/dL Borderline highTRIG 200-500 mg/dL High TRIG greater than 500 mg/dL Very highStandard traceable to the Center for Disease Conrtrol and Prevention (CDC) test method. Urea nitrogen [Mass/volume] in Serum or PlasmaOrdered By: Denilson Gomez on 01-31-2023 Urea nitrogen [Mass/Vol] 71 mg/dL 7- [facility] WBC Auto (Bld) [#/Vol]Ordere d By: Denilson Gomez on 01-31-2023 WBC (Bld) [#/Vol] 6.4 10*3/uL 4.1-10.5 [facility] Office Visit (Cardiology)on 01-16-2023 Follow-up visit Diagnoses/Problems Assessed ASHD (arteriosclerotic heart disease) (414.00) (I25.10) History of MD (myocardial infarction) (412) (I25.2) NSTEMI, initial episode of care (410.71) (I21.4) Chronic kidney disease (CKD) (585.9) (N18.9) CHF (congestive heart failure) (428.0) (I50.9) Diabetes mellitus (250.00) (E11.9) Body mass index (BMI) of 21.0 to 21.9 in adult (V85.1) (Z68.21) History of ischemic cardiomyopathy (V45.89) (Z86.79) Orders ASHD (arteriosclerotic heart disease), CHF (congestive heart failure), History of MD (myocardial infarction), NSTEMI, initial episode of care Cardiac Catherization; Status:Active - Retrospective Authorization; Requested for:[id number]; ASHD (arteriosclerotic heart disease), Hyperlipidemia, NSTEMI, initial [...] gentleman with severe ischemic cardiomyopathy, prior anterior MD with revascularization of the LAD, more recently [...] negative for complaint. Vitals Vital Signs Recorded: [id number] 10:04AM Heart Rate60, R Radial Uhhpobyk572, RUE, Sitting Zsmxbalxr32, RUE, Sitting Height6 ft Abnfts837 lb BMI Tosazswuhn74.7 kg/m2 BSA Calculated1.94 Tobacco Usea) Yes Patient [...] pedal pu (more content not included)... Normal SADAR 3D Tobacco Screening.on 023 Fall risk assessment a) No falls within the last year [facility]-Sandu marianne 250 DO Work Phone: Tobacco use status CPHS a) Yes M [facility] Heart-Sandu marianne 250 DO Work Phone: Tobacco Screening. Yes [facility] Heart-Sandu marianne 250 DO Work Phone: Basophils Auto (Bld) [#/Vol] Ordered By: Kim Renteria on 01-09-2023 Basophils (Bld) [#/Vol] 0.1 10*3/uL 0.0-0.2 [facility] Basophils/100 WBC Auto (Bld) Ordered By: Kim Renteria on 01-09-2023 Basophils/100 WBC (Bld) 1.4 % . [facility] Calcium [Mass/volume] in Ser um or PlasmaOrdered By: Kim Renteria on 01-09-2023 Calcium [Mass/Vol] 7.8 mg/dL 8.6-10.3 [facility] Carbon dioxide, total [Moles /volume] in Serum or PlasmaOrdered By: Kim Renteria on 01-09-2023 CO2 [Moles/Vol] 21.0 mmol/L 21.0-31.0 [facility] Chloride [Moles/volume] in S gretta or PlasmaOrdered By: Kim Renteria on 01-09-2023 Chloride [Moles/Vol] 108 mmol/L 98-107 [facility] Creatinine [Mass/volume] in Serum or PlasmaOrdered By: Kim Renteria on 01-09-2023 Creatinine [Mass/Vol] 4.82 mg/dL 0.70-1.30 [facility] Eosinophils Auto (Bld) [#/Vo l]Ordered By: Kim Renteria on 01-09-2023 Eosinophils (Bld) [#/Vol] 0.2 10*3/uL 0.0-0.45 [facility] Eosinophils/100 WBC Auto (Bl d)Ordered By: Kim Renteria on 01-09-2023 Eosinophils/100 WBC (Bld) 2.7 % . [facility] Erythrocyte distribution wid th Auto (RBC) [Ratio]Ordered By: Kim Renteria on 01-09-2023 Erythrocyte distribution width (RBC) [Ratio] 13.4 % 12.0-14.8 [facility] Glucose Glucometer (BldC) [M ass/Vol]Ordered By: Justino Boss on 01-09-2023 Glucose [Mass/Vol] 184 mg/dL [facility] Comment on above: Random Glucose Refer ence Range is dependent on time and content of last meal. Glucose of more than 200 mg/dL in a nonstressed, ambulatory subject supports the diagnosis of Diabetes Mellitus. Glucose [Mass/volume] in Ser um or PlasmaOrdered By: Kim Renteria on 01-09-2023 Glucose [Mass/Vol] 176 mg/dL 70-100 [facility] Comment on above: ADA recommended refe rence rangeRandom Glucose Reference Range is dependent on time and content of last meal. Glucose of more than 200 mg/dL in a nonstressed, ambulatory subject supports the diagnosis of Diabetes Mellitus. Hematocrit Auto (Bld) [Volum e fraction]Ordered By: Kim Renteria on 01-09-2023 Hematocrit (Bld) [Volume fraction] 24.7 % 38.8-50.0 [facility] Hemoglobin [Mass/volume] in BloodOrdered By: Kim Renteria on 01-09-2023 Hemoglobin (Bld) [Mass/Vol] 8.7 g/dL 13.0-17.0 [facility] Leukocytes [#/volume] correc celena for nucleated erythrocytes in Blood by Automated counOrdered By: Kim Renteria on 01-09-2023 WBC corrected for nucl RBC Auto (Bld) [#/Vol] 6.7 10*3/uL 4.1-10.5 [facility] Lymphocytes Auto (Bld) [#/Vo l]Ordered By: Kim Renteria on 01-09-2023 Lymphocytes (Bld) [#/Vol] 1.0 10*3/uL 1.00-4.8 [facility] Lymphocytes/100 WBC Auto (Bl d)Ordered By: Kim Renteria on 01-09-2023 Lymphocytes/100 WBC (Bld) 14.8 % . [facility] MCH Auto (RBC) [Entitic mass ]Ordered By: Kim Renteria on 01-09-2023 MCH (RBC) [Entitic mass] 30.6 pg 27.5-35.2 [facility] MCHC Auto (RBC) [Mass/Vol]Or dered By: Kim Renteria on 01-09-2023 MCHC (RBC) [Mass/Vol] 35.2 g/dL 32.5-35.6 [facility] MCV Auto (RBC) [Entitic vol] Ordered By: Kim Renteria on 01-09-2023 MCV (RBC) [Entitic vol] 87.0 fL 83.5-101 [facility] Monocytes Auto (Bld) [#/Vol] Ordered By: Kim Renteria on 01-09-2023 Monocytes (Bld) [#/Vol] 0.5 10*3/uL 0.0-0.8 [facility] Monocytes/100 WBC Auto (Bld) Ordered By: Kim Renteria on 01-09-2023 Monocytes/100 WBC (Bld) 7.2 % . [facility] Neutrophils Auto (Bld) [#/Vo l]Ordered By: Kim Renteria on 01-09-2023 Neutrophils (Bld) [#/Vol] 5.0 10*3/uL 1.8-7.7 [facility] Neutrophils/100 WBC Auto (Bl d)Ordered By: Kim Renteria on 01-09-2023 Neutrophils/100 WBC (Bld) 73.9 % . [facility] No Panel InformationOrdered By: Justino Boss on 01-09-2023 Bedside Glucose Comment Glu2: cleaned meter [facility] No Panel InformationOrdered By: Kim Renteria on 01-09-2023 Estimated GFR (CKD-EPI) 15.059 mL/Min [facility] Creatinine Clearance (Chem 22.44 [facility] Nucleated erythrocytes [Pres ence] in Blood by Automated countOrdered By: Kim Renteria on 01-09-2023 Nucleated RBC Auto Ql (Bld) 0.0 /100{WBC} 0-0.5 [facility] Platelet mean volume Auto (B ld) [Entitic vol]Ordered By: Kim Renteria on 01-09-2023 Platelet mean volume (Bld) [Entitic vol] 7.9 fL 6.6-10.1 [facility] Platelets Auto (Bld) [#/Vol] Ordered By: Kim Renteria on 01-09-2023 Platelets (Bld) [#/Vol] 207 10*3/uL 150-450 [facility] Potassium [Moles/volume] in Serum or PlasmaOrdered By: Kim Renteria on 01-09-2023 Potassium [Moles/Vol] 4.2 mmol/L 3.5-5.1 [facility] RBC Auto (Bld) [#/Vol]Ordere d By: Kim Renteria on 01-09-2023 RBC (Bld) [#/Vol] 2.84 10*6/uL 3.90-5.60 [facility] Serum or plasma anion gap de terminationOrdered By: Kim Renteria on 01-09-2023 Anion gap [Moles/Vol] 12.2 mmol/L 6.0-15.0 [facility] Sodium [Moles/volume] in Ser um or PlasmaOrdered By: Kim Renteria on 01-09-2023 Sodium [Moles/Vol] 137 mmol/L 136-145 [facility] Troponin I.cardiac [Mass/vol ume] in Serum or Plasma by Detection limit <= 0.01 ng/Ordered By: Kim Renteria on 01-09-2023 Troponin I.cardiac DL <= 0.01 ng/mL [Mass/Vol] 25.1 pg/mL 0.0-20.0 [facility] Urea nitrogen [Mass/volume] in Serum or PlasmaOrdered By: Kim Renteria on 01-09-2023 Urea nitrogen [Mass/Vol] 65 mg/dL 7-25 [facility] WBC Auto (Bld) [#/Vol]Ordere d By: Kim Renteria on 01-09-2023 WBC (Bld) [#/Vol] 6.7 10*3/uL 4.1-10.5 [facility] Albumin [Mass/volume] in Ser um or Plasma by Bromocresol green (BCG) dye binding methoOrdered By: Angel Mejía on 12-25-2022 Albumin BCG dye [Mass/Vol] 3.4 g/dL 3.5-5.7 [facility] Calcium [Mass/volume] in Ser um or PlasmaOrdered By: Angel Mejía on 12-25-2022 Calcium [Mass/Vol] 8.0 mg/dL 8.6-10.3 [facility] Carbon dioxide, total [Moles /volume] in Serum or PlasmaOrdered By: Angel Mejía on 12-25-2022 CO2 [Moles/Vol] 21.4 mmol/L 21.0-31.0 [facility] Chloride [Moles/volume] in S gretta or PlasmaOrdered By: Angel Mejía on 12-25-2022 Chloride [Moles/Vol] 104 mmol/L 98-107 [facility] Creatinine [Mass/volume] in Serum or PlasmaOrdered By: Angel Mejía on 12-25-2022 Creatinine [Mass/Vol] 4.68 mg/dL 0.70-1.30 [facility] Erythrocyte distribution wid th Auto (RBC) [Ratio]Ordered By: Angel Mejía on 12-25-2022 Erythrocyte distribution width (RBC) [Ratio] 13.4 % 12.0-14.8 [facility] Ferritin [Mass/volume] in Se rum or PlasmaOrdered By: Angel Mejía on 12-25-2022 Ferritin [Mass/Vol] 87.5 ng/mL 23.9-336.2 [facility] Glucose [Mass/volume] in Ser um or PlasmaOrdered By: Angel Mejía on 12-25-2022 Glucose [Mass/Vol] 187 mg/dL 70-100 [facility] Comment on above: ADA recommended refe rence rangeRandom Glucose Reference Range is dependent on time and content of last meal. Glucose of more than 200 mg/dL in a nonstressed, ambulatory subject supports the diagnosis of Diabetes Mellitus. Hematocrit Auto (Bld) [Volum e fraction]Ordered By: Angel Mejía on 12-25-2022 Hematocrit (Bld) [Volume fraction] 29.0 % 38.8-50.0 [facility] Hemoglobin [Mass/volume] in BloodOrdered By: Angel Mejía on 12-25-2022 Hemoglobin (Bld) [Mass/Vol] 9.8 g/dL 13.0-17.0 [facility] Iron [Mass/volume] in Serum or PlasmaOrdered By: Angel Mejía on 12-25-2022 Iron [Mass/Vol] 61 ug/dL 50-212 [facility] Iron binding capacity [Mass/ volume] in Serum or PlasmaOrdered By: Angel Mejía on 12-25-2022 Iron binding capacity [Mass/Vol] 237 ug/dL 255-450 [facility] Iron saturation [Mass Fracti on] in Serum or PlasmaOrdered By: Angel Mejía on 12-25-2022 Iron saturation [Mass fraction] 25.7 % 20-50 [facility] Leukocytes [#/volume] correc celena for nucleated erythrocytes in Blood by Automated counOrdered By: Angel Mejía on 12-25-2022 WBC corrected for nucl RBC Auto (Bld) [#/Vol] 7.4 10*3/uL 4.1-10.5 [facility] MCH Auto (RBC) [Entitic mass ]Ordered By: Angel Mejía on 12-25-2022 MCH (RBC) [Entitic mass] 29.9 pg 27.5-35.2 [facility] MCHC Auto (RBC) [Mass/Vol]Or dered By: Angel Mejía on 12-25-2022 MCHC (RBC) [Mass/Vol] 33.9 g/dL 32.5-35.6 [facility] MCV Auto (RBC) [Entitic vol] Ordered By: Angel Mejía on 12-25-2022 MCV (RBC) [Entitic vol] 88.3 fL 83.5-101 [facility] No Panel InformationOrdered By: Angel Mejía on 12-25-2022 Estimated GFR (CKD-EPI) 15.601 mL/Min [facility] Creatinine Clearance (Chem N/A [facility] Parathyrin.intact [Mass/volu me] in Serum or PlasmaOrdered By: Angel Mejía on 12-25-2022 Parathyrin.intact [Mass/Vol] 468.7 pg/mL 12 [facility] Phosphate [Mass/volume] in S gretta or PlasmaOrdered By: Angel Mejía on 12-25-2022 Phosphate [Mass/Vol] 6.0 mg/dL 3.7-7.2 [facility] Platelet mean volume Auto (B ld) [Entitic vol]Ordered By: Angel Mejía on 12-25-2022 Platelet mean volume (Bld) [Entitic vol] 8.4 fL 6.6-10.1 [facility] Platelets Auto (Bld) [#/Vol] Ordered By: Angel Mejía on 12-25-2022 Platelets (Bld) [#/Vol] 160 10*3/uL 150-450 [facility] Potassium [Moles/volume] in Serum or PlasmaOrdered By: Angel Mejía on 12-25-2022 Potassium [Moles/Vol] 5.1 mmol/L 3.5-5.1 [facility] RBC Auto (Bld) [#/Vol]Ordere d By: Angel Mejía on 12-25-2022 RBC (Bld) [#/Vol] 3.28 10*6/uL 3.90-5.60 [facility] Serum or plasma anion gap de terminationOrdered By: Angel Mejía on 12-25-2022 Anion gap [Moles/Vol] 13.7 mmol/L 6.0-15.0 [facility] Sodium [Moles/volume] in Ser um or PlasmaOrdered By: Angel Mejía on 12-25-2022 Sodium [Moles/Vol] 134 mmol/L 136-145 [facility] Transferrin [Mass/volume] in Serum or PlasmaOrdered By: Angel Cortezdir on 12-25-2022 Transferrin [Mass/Vol] 169 mg/dL 203-362 [facility] Urea nitrogen [Mass/volume] in Serum or PlasmaOrdered By: Angel Mejía on 12-25-2022 Urea nitrogen [Mass/Vol] 57 mg/dL 7-25 [facility] Basophils Auto (Bld) [#/Vol] Ordered By: Govind Berry on 12-18-2022 Basophils (Bld) [#/Vol] 0.1 10*3/uL 0.0-0.2 [facility] Basophils/100 WBC Auto (Bld) Ordered By: Govind Berry on 12-18-2022 Basophils/100 WBC (Bld) 1.7 % . [facility] Eosinophils Auto (Bld) [#/Vo l]Ordered By: Govind Berry on 12-18-2022 Eosinophils (Bld) [#/Vol] 0.2 10*3/uL 0.0-0.45 [facility] Eosinophils/100 WBC Auto (Bl d)Ordered By: Govind Berry on 12-18-2022 Eosinophils/100 WBC (Bld) 2.5 % . [facility] Erythrocyte distribution wid th Auto (RBC) [Ratio]Ordered By: Govind Berry on 12-18-2022 Erythrocyte distribution width (RBC) [Ratio] 14.1 % 12.0-14.8 [facility] Glucose Glucometer (BldC) [M ass/Vol]Ordered By: Romain Mendoza on 12-18-2022 Glucose [Mass/Vol] 165 mg/dL [facility] Comment on above: Random Glucose Refer ence Range is dependent on time and content of last meal. Glucose of more than 200 mg/dL in a nonstressed, ambulatory subject supports the diagnosis of Diabetes Mellitus. Hematocrit Auto (Bld) [Volum e fraction]Ordered By: Govind Berry on 12-18-2022 Hematocrit (Bld) [Volume fraction] 27.7 % 38.8-50.0 [facility] Hemoglobin [Mass/volume] in BloodOrdered By: Govind Berry on 12-18-2022 Hemoglobin (Bld) [Mass/Vol] 9.4 g/dL 13.0-17.0 [facility] Leukocytes [#/volume] correc celena for nucleated erythrocytes in Blood by Automated counOrdered By: Govind Berry on 12-18-2022 WBC corrected for nucl RBC Auto (Bld) [#/Vol] 8.0 10*3/uL 4.1-10.5 [facility] Lymphocytes Auto (Bld) [#/Vo l]Ordered By: Govind Berry on 12-18-2022 Lymphocytes (Bld) [#/Vol] 1.1 10*3/uL 1.00-4.8 [facility] Lymphocytes/100 WBC Auto (Bl d)Ordered By: Govind Berry on 12-18-2022 Lymphocytes/100 WBC (Bld) 13.5 % . [facility] MCH Auto (RBC) [Entitic mass ]Ordered By: Govind Berry on 12-18-2022 MCH (RBC) [Entitic mass] 30.0 pg 27.5-35.2 [facility] MCHC Auto (RBC) [Mass/Vol]Or dered By: Govind Berry on 12-18-2022 MCHC (RBC) [Mass/Vol] 34.0 g/dL 32.5-35.6 [facility] MCV Auto (RBC) [Entitic vol] Ordered By: Govind Berry on 12-18-2022 MCV (RBC) [Entitic vol] 88.2 fL 83.5-101 [facility] Monocytes Auto (Bld) [#/Vol] Ordered By: Govind Berry on 12-18-2022 Monocytes (Bld) [#/Vol] 0.4 10*3/uL 0.0-0.8 [facility] Monocytes/100 WBC Auto (Bld) Ordered By: Govind Berry on 12-18-2022 Monocytes/100 WBC (Bld) 5.1 % . [facility] Neutrophils Auto (Bld) [#/Vo l]Ordered By: Govind Berry on 12-18-2022 Neutrophils (Bld) [#/Vol] 6.2 10*3/uL 1.8-7.7 [facility] Neutrophils/100 WBC Auto (Bl d)Ordered By: Govind Berry on 12-18-2022 Neutrophils/100 WBC (Bld) 77.2 % . [facility] No Panel InformationOrdered By: Romain Mendoza on 12-18-2022 Bedside Glucose Comment Glu2: cleaned meter [facility] Nucleated erythrocytes [Pres ence] in Blood by Automated countOrdered By: Govind Berry on 12-18-2022 Nucleated RBC Auto Ql (Bld) 0.1 /100{WBC} 0-0.5 [facility] Platelet mean volume Auto (B ld) [Entitic vol]Ordered By: Govind Berry on 12-18-2022 Platelet mean volume (Bld) [Entitic vol] 8.0 fL 6.6-10.1 [facility] Platelets Auto (Bld) [#/Vol] Ordered By: Govind Berry on 12-18-2022 Platelets (Bld) [#/Vol] 167 10*3/uL 150-450 [facility] Potassium [Moles/volume] in Serum or PlasmaOrdered By: Yordy Garg on 12-18-2022 Potassium [Moles/Vol] 4.9 mmol/L 3.5-5.1 [facility] RBC Auto (Bld) [#/Vol]Ordere d By: Govind Berry on 12-18-2022 RBC (Bld) [#/Vol] 3.15 10*6/uL 3.90-5.60 [facility] WBC Auto (Bld) [#/Vol]Ordere d By: Govind Berry on 12-18-2022 WBC (Bld) [#/Vol] 8.0 10*3/uL 4.1-10.5 [facility] Albumin [Mass/volume] in Ser um or Plasma by Bromocresol green (BCG) dye binding methoOrdered By: Angel Mejía on 11-20-2022 Albumin BCG dye [Mass/Vol] 3.3 g/dL 3.5-5.7 [facility] Calcium [Mass/volume] in Ser um or PlasmaOrdered By: Angel Mejía on 11-20-2022 Calcium [Mass/Vol] 8.0 mg/dL 8.6-10.3 [facility] Carbon dioxide, total [Moles /volume] in Serum or PlasmaOrdered By: Angel Mejía on 11-20-2022 CO2 [Moles/Vol] 22.0 mmol/L 21.0-31.0 [facility] Chloride [Moles/volume] in S gretta or PlasmaOrdered By: Angel Mejía on 11-20-2022 Chloride [Moles/Vol] 107 mmol/L 98-107 [facility] Creatinine [Mass/volume] in Serum or PlasmaOrdered By: Angel Mejía on 11-20-2022 Creatinine [Mass/Vol] 4.21 mg/dL 0.70-1.30 [facility] Ferritin [Mass/volume] in Se rum or PlasmaOrdered By: Angel Mejía on 11-20-2022 Ferritin [Mass/Vol] 100.2 ng/mL 23.9-336.2 [facility] Glucose [Mass/volume] in Ser um or PlasmaOrdered By: Angel Mejía on 11-20-2022 Glucose [Mass/Vol] 167 mg/dL 70-100 [facility] Comment on above: ADA recommended refe rence rangeRandom Glucose Reference Range is dependent on time and content of last meal. Glucose of more than 200 mg/dL in a nonstressed, ambulatory subject supports the diagnosis of Diabetes Mellitus. Iron [Mass/volume] in Serum or PlasmaOrdered By: Angel Mejía on 11-20-2022 Iron [Mass/Vol] 48 ug/dL 50-212 [facility] Iron binding capacity [Mass/ volume] in Serum or PlasmaOrdered By: Angel Mejía on 11-20-2022 Iron binding capacity [Mass/Vol] 221 ug/dL 255-450 [facility] Iron saturation [Mass Fracti on] in Serum or PlasmaOrdered By: Angel Mejía on 11-20-2022 Iron saturation [Mass fraction] 21.7 % 20-50 [facility] No Panel InformationOrdered By: Angel Mejía on 11-20-2022 Estimated GFR (CKD-EPI) 17.714 mL/Min [facility] Creatinine Clearance (Chem N/A [facility] Phosphate [Mass/volume] in S gretta or PlasmaOrdered By: Angel Mejía on 11-20-2022 Phosphate [Mass/Vol] 6.0 mg/dL 3.7-7.2 [facility] Potassium [Moles/volume] in Serum or PlasmaOrdered By: Angel Mejía on 11-20-2022 Potassium [Moles/Vol] 4.5 mmol/L 3.5-5.1 [facility] Serum or plasma anion gap de terminationOrdered By: Angel Mejía on 11-20-2022 Anion gap [Moles/Vol] 13.5 mmol/L 6.0-15.0 [facility] Sodium [Moles/volume] in Ser um or PlasmaOrdered By: Angel Joyce on 11-20-2022 Sodium [Moles/Vol] 138 mmol/L 136-145 [facility] Transferrin [Mass/volume] in Serum or PlasmaOrdered By: Angel Joyce on 11-20-2022 Transferrin [Mass/Vol] 158 mg/dL 203-362 [facility] Urea nitrogen [Mass/volume] in Serum or PlasmaOrdered By: Angel Joyce on 11-20-2022 Urea nitrogen [Mass/Vol] 64 mg/dL 7-25 [facility] Activated partial thrombopla stin time (aPTT) in platelet poor plasma by coagulation aOrdered By: Denilson Gomez on 11-12-2022 aPTT Coag (PPP) [Time] 38.0 s 25.1-36.5 [facility] Albumin [Mass/volume] in Ser um or Plasma by Bromocresol green (BCG) dye binding methoOrdered By: Denilson Gomez on 11-12-2022 Albumin BCG dye [Mass/Vol] 3.2 g/dL 3.5-5.7 [facility] Basophils Auto (Bld) [#/Vol] Ordered By: Denilson Gomez on 11-12-2022 Basophils (Bld) [#/Vol] 0.1 10*3/uL 0.0-0.2 [facility] Basophils/100 WBC Auto (Bld) Ordered By: Denilson Gomez on 11-12-2022 Basophils/100 WBC (Bld) 1.4 % . [facility] Calcium [Mass/volume] in Ser um or PlasmaOrdered By: Denilson Gomez on 11-12-2022 Calcium [Mass/Vol] 8.2 mg/dL 8.6-10.3 [facility] Carbon dioxide, total [Moles /volume] in Serum or PlasmaOrdered By: Denilson Gomez on 11-12-2022 CO2 [Moles/Vol] 22.5 mmol/L 21.0-31.0 [facility] Chloride [Moles/volume] in S gretta or PlasmaOrdered By: Denilson Gomez on 11-12-2022 Chloride [Moles/Vol] 108 mmol/L 98-107 [facility] Cholesterol [Mass/volume] in Serum or PlasmaOrdered By: Denilson Gomez on 11-12-2022 Cholesterol [Mass/Vol] 143 mg/dL 140-200 [facility] Comment on above: Chol less than 200 m g/dl low riskChol 201-239 mg/dl borderline riskChol 240 mg/dl and greater high risk Cholesterol in LDL Calc [Mas s/Vol]Ordered By: Denilson Gomez on 11-12-2022 Cholesterol in LDL [Mass/Vol] 93 mg/dL 0-100 [facility] Comment on above: LDL ATP III CLASSIFI CATIONLDL less than 100 mg/dL OptimalLDL 100-129 mg/dL Near or above optimalLDL 130-159 mg/dL Borderline highLDL 160-189 mg/dL HighLDL greater than 189 mg/dL Very high Cholesterol in VLDL Calc [Ma ss/Vol]Ordered By: Denilson Gomez on 11-12-2022 Cholesterol in VLDL [Mass/Vol] 19 mg/dL [facility] Creatinine [Mass/volume] in Serum or PlasmaOrdered By: Denilson Gomez on 11-12-2022 Creatinine [Mass/Vol] 4.90 mg/dL 0.70-1.30 [facility] Eosinophils Auto (Bld) [#/Vo l]Ordered By: Denilson Gomez on 11-12-2022 Eosinophils (Bld) [#/Vol] 0.1 10*3/uL 0.0-0.45 [facility] Eosinophils/100 WBC Auto (Bl d)Ordered By: Denilson Gomez on 11-12-2022 Eosinophils/100 WBC (Bld) 1.9 % . [facility] Erythrocyte distribution wid th Auto (RBC) [Ratio]Ordered By: Denilson Gomez on 11-12-2022 Erythrocyte distribution width (RBC) [Ratio] 12.2 % 12.0-14.8 [facility] Glucose [Mass/volume] in Ser um or PlasmaOrdered By: Denilson Gomez on 11-12-2022 Glucose [Mass/Vol] 236 mg/dL 70-100 [facility] Comment on above: ADA recommended refe rence rangeRandom Glucose Reference Range is dependent on time and content of last meal. Glucose of more than 200 mg/dL in a nonstressed, ambulatory subject supports the diagnosis of Diabetes Mellitus. Hematocrit Auto (Bld) [Volum e fraction]Ordered By: Denilson Gomez on 11-12-2022 Hematocrit (Bld) [Volume fraction] 25.5 % 38.8-50.0 [facility] Hemoglobin [Mass/volume] in BloodOrdered By: Denilson Gomez on 11-12-2022 Hemoglobin (Bld) [Mass/Vol] 8.7 g/dL 13.0-17.0 [facility] Laboratory - Chemistry and C hemistry - challengeon 11-12-2022 Cholesterol [Mass/Vol] 143\S\143 Normal 140-200 [facility] [employer] DO Work Phone: Comment on above: Chol less than 200 m g/dl low risk Chol 201-239 mg/dl borderline risk Chol 240 mg/dl and greater high risk Cholesterol in LDL [Mass/Vol] 93\S\93 Normal 0-100 [facility] [employer] DO Work Phone: Comment on above: LDL ATP III CLASSIFI CATION LDL less than 100 mg/dL Optimal LDL 100-129 mg/dL Near or above optimal LDL 130-159 mg/dL Borderline high LDL 160-189 mg/dL High LDL greater than 189 mg/dL Very high Laboratory - Chemistry and C hemistry - challengeOrdered By: Denilson Gomez on 11-12-2022 GFR/1.73 sq M.predicted MDRD (S/P/Bld) [Vol rate/Area] 14.764 mL/min/{1.73_m2} [facility] Laboratory - CoagulationOrde red By: Denilson Gomez on 11-12-2022 PT Coag (PPP) [Time] 12.4 s 9.0-12.9 [facility] Leukocytes [#/volume] correc celena for nucleated erythrocytes in Blood by Automated counOrdered By: Denilson Gomez on 11-12-2022 WBC corrected for nucl RBC Auto (Bld) [#/Vol] 7.6 10*3/uL 4.1-10.5 [facility] Lymphocytes Auto (Bld) [#/Vo l]Ordered By: Denilson Gomez on 11-12-2022 Lymphocytes (Bld) [#/Vol] 1.0 10*3/uL 1.00-4.8 [facility] Lymphocytes/100 WBC Auto (Bl d)Ordered By: Denilson Gomez on 11-12-2022 Lymphocytes/100 WBC (Bld) 13.3 % . [facility] MCH Auto (RBC) [Entitic mass ]Ordered By: Denilson Gomez on 11-12-2022 MCH (RBC) [Entitic mass] 29.8 pg 27.5-35.2 [facility] MCHC Auto (RBC) [Mass/Vol]Or dered By: Denilson Gomez on 11-12-2022 MCHC (RBC) [Mass/Vol] 34.3 g/dL 32.5-35.6 [facility] MCV Auto (RBC) [Entitic vol] Ordered By: Denilson Gomez on 11-12-2022 MCV (RBC) [Entitic vol] 87.0 fL 83.5-101 [facility] Monocytes Auto (Bld) [#/Vol] Ordered By: Denilson Gomez on 11-12-2022 Monocytes (Bld) [#/Vol] 0.2 10*3/uL 0.0-0.8 [facility] Monocytes/100 WBC Auto (Bld) Ordered By: Denilson Gomez on 11-12-2022 Monocytes/100 WBC (Bld) 3.2 % . [facility] Neutrophils Auto (Bld) [#/Vo l]Ordered By: Denilson Gomez on 11-12-2022 Neutrophils (Bld) [#/Vol] 6.1 10*3/uL 1.8-7.7 [facility] Neutrophils/100 WBC Auto (Bl d)Ordered By: Denilson Gomez on 11-12-2022 Neutrophils/100 WBC (Bld) 80.2 % . [facility] No Panel InformationOrdered By: Denilson Gomez on 11-12-2022 Pharmacy Creatinine Clearance (Chem N/A [facility] No Panel Informationon 11-12 38.0\S\38.0 above high threshold 25.1-36.5 [facility] [place] [facility] [address] DO Work Phone: Comment on above: PERFORMED BY:[facility], [place] [id number] MEDICAL DIRECTORLEVY GILES M.D. 1.1\S\1.1 Normal -[facility] marianne 250 DO Work Phone: Comment on [...] valves: 3 - 4.5 12.4\S\12.4 Normal 9.0-12.9 [facility]ne 250 DO Work Phone: 80.2\S\80.2 Normal . [facility]ne 250 DO Work Phone: [phone] 8.7\S\8.7 below low threshold 13.0-17.0 [facility]My marianne 250 DO Work Phone: 154\S\154 Normal 150-450 [facility]ne 250 DO Work Phone: 12.2\S\12.2 Normal 12.0-14.8 [facility]ne 250 DO Work Phone: 34.3\S\34.3 Normal 32.5-35.6 [facility] 250 DO Work Phone: [phone] 29.8\S\29.8 Normal 27.5-35.2 [facility] 250 DO Work Phone: [phone] 6.1\S\6.1 Normal 1.8-7.7 [facility] 250 DO Work Phone: 0.0\S\0.0 Normal 0-0.5 -[facility] marianne 250 DO Work Phone: [phone] 1.4\S\1.4 Normal . [facility]ne 250 DO Work Phone: [phone] 1.9\S\1.9 Normal . [facility] 250 DO Work Phone: [phone] 3.2\S\3.2 below low threshold 3.5-5.7 [facility]ne 250 DO Work Phone: [phone] 13.3\S\13.3 Normal . [facility]ne 250 DO Work Phone: [phone] 0.1\S\0.1 Normal 0.0-0.45 [facility]ne 250 DO Work Phone: Comment on above: PERFORMED BY:[place] [id number] [address] [place], [place] [phone] MEDICAL DIRECTORLEVY GILES M.D. 0.2\S\0.2 Normal 0.0-0.8 [facility]ne 250 DO Work Phone: [phone] 1.0\S\1.0 Normal 1.00-4.8 [facility]ne 250 DO Work Phone: [phone] 87.0\S\87.0 Normal 83.5-101 [facility]ne 250 DO Work Phone: [phone] 25.5\S\25.5 below low threshold 38.8-50.0 [facility] marianne 250 DO Work Phone: [phone] 2.93\S\2.93 below low threshold 3.90-5.60 [facility]ne 250 DO Work Phone: [phone] 7.6\S\7.6 Normal 4.1-10.5 [facility]ne 250 DO Work Phone: 12.1\S\12.1 Normal 6.0-15.0 -[facility] marianne 250 DO Work Phone: 5.3\S\5.3 Normal 3.7-7.2 -[facility] marianne 250 DO Work Phone: 8.2\S\8.2 below low threshold 8.6-10.3 -[facility] marianne 250 DO Work Phone: 22.5\S\22.5 Normal 21.0-31.0 -[facility] marianne 250 DO Work Phone: 108\S\108 above high threshold 98-107 -[facility] marianne 250 DO Work Phone: 5.6\S\5.6 above high threshold 3.5-5.1 -[facility]My penny 250 DO Work Phone: 137\S\137 Normal 136-145 -[facility] marianne 250 DO Work Phone: 4.90\S\4.90 above high threshold 0.70-1.30 -[facility] marianne 250 DO Work Phone: 64\S\64 above high threshold 7-25 -[facility] penny 250 DO Work Phone: 236\S\236 above high threshold 70-100 -[facility] marianne 250 DO Work Phone: Comment on above: Random Glucose Refer ence Range is dependent on time and content of last meal. Glucose of more than 200 mg/dL in a nonstressed, ambulatory subject supports the diagnosis of Diabetes Mellitus. ADA recommended reference range 4.6\S\4.6 Normal <5.0 -[facility] marianne 250 DO Work Phone: Comment on above: PERFORMED BY:[facility] GONZALES [id number] MEDICAL DIRECTORLEVY GILES M.D. 19\S\19 Normal [facility] [employer] DO Work Phone: 97\S\97 Normal 0-149 [facility] Work Phone: Comment on above: TRIG ATP III CLASSIF ICATION TRIG less than 150 mg/dL Normal TRIG 150-199 mg/dL Borderline high TRIG 200-500 mg/dL High TRIG greater than 500 mg/dL Very high Standard traceable to the Center for Disease Conrtrol and Prevention (CDC) test method. 31\S\31 Normal 29-71 [facility] [employer] [facility] [employer] DO Work Phone: Comment on above: HDL CHOL ATP-III CLA SSIFICATION Cardiovascular Risk HDL > or equal to 60 mg/dL LOW HDL < 40 mg/dL HIGH 268.6\S\268.6 above high threshold [facility] [employer] [facility] [employer] DO Work Phone: Comment on above: PERFORMED BY:[facility], [place] [phone] MEDICAL DIRECTORLEVY GILES M.D. Nucleated erythrocytes [Pres ence] in Blood by Automated countOrdered By: Denilson Gomez on 11-12-2022 Nucleated RBC Auto Ql (Bld) 0.0 /100{WBC} 0-0.5 [facility] Parathyrin.intact [Mass/volu me] in Serum or PlasmaOrdered By: Denilson Gomez on 11-12-2022 Parathyrin.intact [Mass/Vol] 268.6 pg/mL [facility] Phosphate [Mass/volume] in S gretta or PlasmaOrdered By: Denilson Gomez on 11-12-2022 Phosphate [Mass/Vol] 5.3 mg/dL 3.7-7.2 [facility] Platelet mean volume Auto (B ld) [Entitic vol]Ordered By: Denilson Gomez on 11-12-2022 Platelet mean volume (Bld) [Entitic vol] 8.7 fL 6.6-10.1 [facility] Platelet poor plasma interna tional normalized ratio (INR) by coagulation assay (relatOrdered By: Denilson Gomez on 11-12-2022 INR Coag (PPP) [Relative time] 1.1 {INR} [facility] Comment on above: INR Therapeutic Rang [...] Platelets Auto (Bld) [#/Vol] Ordered By: Denilson Goemz on 11-12-2022 Platelets (Bld) [#/Vol] 154 10*3/uL 150-450 [facility] Potassium [Moles/volume] in Serum or PlasmaOrdered By: Denilson Gomez on 11-12-2022 Potassium [Moles/Vol] 5.6 mmol/L 3.5-5.1 [facility] RBC Auto (Bld) [#/Vol]Ordere d By: Denilson Gomez on 11-12-2022 RBC (Bld) [#/Vol] 2.93 10*6/uL 3.90-5.60 [facility] Serum or plasma anion gap de terminationOrdered By: Denilson Gomez on 11-12-2022 Anion gap [Moles/Vol] 12.1 mmol/L 6.0-15.0 [facility] Serum or plasma high density lipoprotein (HDL) cholesterol measurementOrdered By: Denilson Gomez on 11-12-2022 Cholesterol in HDL [Mass/Vol] 31 mg/dL 29-71 [facility] Comment on above: HDL CHOL ATP-III CLA SSIFICATION Cardiovascular RiskHDL > or equal to 60 mg/dL LOWHDL < 40 mg/dL HIGH Serum or plasma total choles terol/high density lipoprotein (HDL) cholesterol mass ratOrdered By: Denilson Gomez on 11-12-2022 Cholesterol.total/Rosalind sterol in HDL [Mass ratio] 4.6 {ratio} <5.0 [facility] Sodium [Moles/volume] in Ser um or PlasmaOrdered By: Denilson Gomez on 11-12-2022 Sodium [Moles/Vol] 137 mmol/L 136-145 [facility] Triglyceride [Mass/volume] i n Serum or PlasmaOrdered By: Denilson Gomez on 11-12-2022 Triglyceride [Mass/Vol] 97 mg/dL 0-149 [facility] Comment on above: TRIG ATP III CLASSIF ICATIONTRIG less than 150 mg/dL NormalTRIG 150-199 mg/dL Borderline highTRIG 200-500 mg/dL High TRIG greater than 500 mg/dL Very highStandard traceable to the Center for Disease Conrtrol and Prevention (CDC) test method. Urea nitrogen [Mass/volume] in Serum or PlasmaOrdered By: Denilson Gomez on 11-12-2022 Urea nitrogen [Mass/Vol] 64 mg/dL 7-25 [facility] WBC Auto (Bld) [#/Vol]Ordere d By: Denilson Gomez on 11-12-2022 WBC (Bld) [#/Vol] 7.6 10*3/uL 4.1-10.5 [facility] Office Visit (Cardiology)on 10-18-2022 Follow-up visit Diagnoses/Problems Assessed ASHD (arteriosclerotic heart disease) (414.00) (I25.10) NSTEMI, initial episode of care (410.71) (I21.4) Status post insertion of drug eluting coronary artery stent (V45.82) (Z95.5) History of MD (myocardial infarction) (412) (I25.2) CHF (congestive heart [...] we can help. You may also call [phone] for free resources and assistance.; Status:Complete - [...] follow-up of a hospitalization for chest pain. [facility]. 37-year-old gentleman returns following recent hospitalization for unstable angina and hypertension and anxiety. We escalated his isosorbide and hydralazine and is feeling much better. Patient has a prior history of anterior MD in October 2021 with primary revascularization of [...] Radial Systolic1 (more content not included)... Normal SADAR 3D Tobacco Screening.on 023 Adult depression screening assessment No [facility] [employer] DO Work Phone: Fall risk assessment a) No falls within the last year [facility] [employer] DO Work Phone: Tobacco use status CPHS a) Yes M [facility] [employer] DO Work Phone: Tobacco Screening. Yes [facility] [place] [facility] marianne 250 DO Work Phone: Albumin [Mass/volume] in Ser um or PlasmaOrdered By: Angel Mejía on 10-10-2022 Albumin [Mass/Vol] 2.7 g/dL 3.2-5.[address] [facility] [address] biopsyOrdered By: Varsha ricardo on 10-10-2022 Transferrin [Mass/Vol] 150 mg/dL 180-380 [facility] Calcium [Mass/volume] in Ser um or PlasmaOrdered By: Angel Mejía on 10-10-2022 Calcium [Mass/Vol] 8.1 mg/dL 8.2-10.2 [facility] Carbon dioxide, total [Moles /volume] in Serum or PlasmaOrdered By: Angel Mejía on 10-10-2022 CO2 [Moles/Vol] 23.9 mmol/L 22.0-30.0 [facility] Creatinine [Mass/volume] in UrineOrdered By: Angel Mejía on 10-10-2022 Creatinine (U) [Mass/Vol] 84.1 mg/dL [facility] Comment on above: No reference range e stablished Creatinine and Glomerular fi ltration rate.predicted panel (S/P/Bld)Ordered By: Angel Mejía on 10-10-2022 Creatinine [Mass/Vol] 4.60 mg/dL 0.64-1.27 [facility] Erythrocyte distribution wid th Auto (RBC) [Ratio]Ordered By: Angel Mejía on 10-10-2022 Erythrocyte distribution width (RBC) [Ratio] 13.1 % 12.0-14.8 [facility] Estimated glomerular filtrat ion rate (GFR) non- AmericanOrdered By: Angel Mejía on 10-10-2022 GFR/1.73 sq M.predicted among non-blacks MDRD (S/P/Bld) [Vol rate/Area] 14 mL/Min [facility] Ferritin [Mass/volume] in Se rum or PlasmaOrdered By: Angel Mejía on 10-10-2022 Ferritin [Mass/Vol] 86.0 ng/mL 23.9-336.2 [facility] Hematocrit Auto (Bld) [Volum e fraction]Ordered By: Angel Mejía on 10-10-2022 Hematocrit (Bld) [Volume fraction] 24.0 % 38.8-50.0 [facility] Hemoglobin [Mass/volume] in BloodOrdered By: Angel Mejía on 10-10-2022 Hemoglobin (Bld) [Mass/Vol] 8.3 g/dL 13.0-17.0 [facility] Iron [Mass/volume] in Serum or PlasmaOrdered By: Angel Mejía on 10-10-2022 Iron [Mass/Vol] 55 ug/dL 40-160 [facility] Iron binding capacity [Mass/ volume] in Serum or PlasmaOrdered By: Angel Mejía on 10-10-2022 Iron binding capacity [Mass/Vol] 210 ug/dL 255-450 [facility] Iron saturation [Mass Fracti on] in Serum or PlasmaOrdered By: Angel Mejía on 10-10-2022 Iron saturation [Mass fraction] 26.2 % 20-50 [facility] Laboratory - Chemistry and C hemistry - challengeOrdered By: Angel Mejía on 10-10-2022 Magnesium [Mass/Vol] 2.1 mg/dL 1.6-2.6 [facility] Leukocytes [#/volume] correc celena for nucleated erythrocytes in Blood by Automated counOrdered By: Angel Mejía on 10-10-2022 WBC corrected for nucl RBC Auto (Bld) [#/Vol] 5.6 10*3/uL 4.1-10.5 [facility] MCH Auto (RBC) [Entitic mass ]Ordered By: Angel Mejía on 10-10-2022 MCH (RBC) [Entitic mass] 30.4 pg 27.5-35.2 [facility] MCHC Auto (RBC) [Mass/Vol]Or dered By: Angel Mejía on 10-10-2022 MCHC (RBC) [Mass/Vol] 34.5 g/dL 32.5-35.6 [facility] MCV Auto (RBC) [Entitic vol] Ordered By: Angel Mejía on 10-10-2022 MCV (RBC) [Entitic vol] 88.2 fL 83.5-101 [facility] No Panel InformationOrdered By: Angel Mejía on 10-10-2022 25-Hydroxy Vitamin D Total 8.1 ng/mL 30-100 [facility] Comment on above: VITAMIN D STATUS 25( [place])VITAMIN D RANGE (ng/mL) Deficient <20 Insufficient 20 to <30Sufficient 30 to 100Reference: Vanna MF,Chemo NC, Sergey SIMENTAL, et al. Evaluation,treatment, and prevention of vitamin D deficiency; an Endocrine Society clinical practice guideline. JCEM. 2010; 96(7):1911-30. Estimated GFR () 17 mL/Min [facility] Comment on above: GFR estimated refere nce range: According to KDOQI guidelines, <60 ml/min/1.73m2 is sufficient to diagnose a patient with chronic kidney disease. Pharmacy Creatinine Clearance (Chem N/A [facility] Parathyrin.intact [Mass/volu me] in Serum or PlasmaOrdered By: Angel Mejía on 10-10-2022 Parathyrin.intact [Mass/Vol] 307.1 pg/mL 12-88 [facility] Phosphate [Mass/volume] in S gretta or PlasmaOrdered By: Angel Mejía on 10-10-2022 Phosphate [Mass/Vol] 6.5 mg/dL 2.5-4.6 [facility] Platelet mean volume Auto (B ld) [Entitic vol]Ordered By: Angel Mejía on 10-10-2022 Platelet mean volume (Bld) [Entitic vol] 8.3 fL 6.6-10.1 [facility] Platelets Auto (Bld) [#/Vol] Ordered By: Angel Mejía on 10-10-2022 Platelets (Bld) [#/Vol] 185 10*3/uL 150-450 [facility] Protein [Mass/volume] in Uri neOrdered By: Angel Mejía on 10-10-2022 Protein (U) [Mass/Vol] 400 mg/dL 0-9 [facility] RBC Auto (Bld) [#/Vol]Ordere d By: Angel Mejía on 10-10-2022 RBC (Bld) [#/Vol] 2.72 10*6/uL 3.90-5.60 [facility] Serum or plasma anion gap de terminationOrdered By: Angel Mejía on 10-10-2022 Anion gap [Moles/Vol] 10.1 mmol/L 6.0-15.0 [facility] Serum or plasma chloride trina surement (moles/volume)Ordered By: Angel Mejía on 10-10-2022 Chloride [Moles/Vol] 107 mmol/L 95-114 [facility] Serum or plasma glucose farida urement (mass/volume)Ordered By: Angel Mejía on 10-10-2022 Glucose [Mass/Vol] 190 mg/dL 70-100 [facility] Comment on above: ADA recommended refe rence rangeRandom Glucose Reference Range is dependent on time and content of last meal. Glucose of more than 200 mg/dL in a nonstressed, ambulatory subject supports the diagnosis of Diabetes Mellitus. Serum or plasma potassium me asurement (moles/volume)Ordered By: Angel Mejía on 10-10-2022 Potassium [Moles/Vol] 5.0 mmol/L 3.5-5.1 [facility] Serum or plasma sodium measu rement (moles/volume)Ordered By: Angel Mejía on 10-10-2022 Sodium [Moles/Vol] 136 mmol/L 136-146 [facility] Urea nitrogen [Mass/volume] in Serum or PlasmaOrdered By: Angel Mejía on 10-10-2022 Urea nitrogen [Mass/Vol] 57 mg/dL 9-23 [facility] Urine protein/creatinine rat ioOrdered By: Angel Mejía on 10-10-2022 Protein/Creatinine (U) [Ratio] 4756 mg/g{Cre} 0-200 [facility] Activated partial thrombopla stin time (aPTT) in platelet poor plasma by coagulation aOrdered By: Mickey Gr on 10-03-2022 aPTT Coag (PPP) [Time] 37.1 s 25.1-36.5 [facility] Basophils Auto (Bld) [#/Vol] Ordered By: Reina Renae on 10-03-2022 Basophils (Bld) [#/Vol] 0.1 10*3/uL 0.0-0.2 [facility] Basophils/100 WBC Auto (Bld) Ordered By: Reina Renae on 10-03-2022 Basophils/100 WBC (Bld) 1.0 % . [facility] Creatine kinase [Enzymatic a ctivity/volume] in Serum or PlasmaOrdered By: Reina Renae on 10-03-2022 CK [Catalytic activity/Vol] 213 U/L [facility] CK [Catalytic activity/Vol] 243 U/L [facility] Creatine kinase.MB [Mass/vol ume] in Serum or PlasmaOrdered By: Reina Renae on 10-03-2022 CK.MB [Mass/Vol] 5.6 ng/mL 0.6-6.3 [facility] CK.MB [Mass/Vol] 5.9 ng/mL 0.6-6.3 [facility] Creatinine and Glomerular fi ltration rate.predicted panel (S/P/Bld)Ordered By: Reina Renae on 10-03-2022 Creatinine [Mass/Vol] 4.17 mg/dL 0.64-1.27 [facility] Eosinophils Auto (Bld) [#/Vo l]Ordered By: Reina Renae on 10-03-2022 Eosinophils (Bld) [#/Vol] 0.2 10*3/uL 0.0-0.45 [facility] Eosinophils/100 WBC Auto (Bl d)Ordered By: Reina Renae on 10-03-2022 Eosinophils/100 WBC (Bld) 2.7 % . [facility] Erythrocyte distribution wid th Auto (RBC) [Ratio]Ordered By: Reina Renae on 10-03-2022 Erythrocyte distribution width (RBC) [Ratio] 13.3 % 12.0-14.8 [facility] Estimated glomerular filtrat ion rate (GFR) non- AmericanOrdered By: Reina Renae on 10-03-2022 GFR/1.73 sq M.predicted among non-blacks MDRD (S/P/Bld) [Vol rate/Area] 16 mL/Min [facility] Glucose Glucometer (BldC) [M ass/Vol]Ordered By: Ross Catherine on 10-03-2022 Glucose [Mass/Vol] 214 mg/dL [facility] Comment on above: Random Glucose Refer ence Range is dependent on time and content of last meal. Glucose of more than 200 mg/dL in a nonstressed, ambulatory subject supports the diagnosis of Diabetes Mellitus. Hematocrit Auto (Bld) [Volum e fraction]Ordered By: Reina Renae on 10-03-2022 Hematocrit (Bld) [Volume fraction] 24.9 % 38.8-50.0 [facility] Hemoglobin [Mass/volume] in BloodOrdered By: Reina Renae on 10-03-2022 Hemoglobin (Bld) [Mass/Vol] 8.5 g/dL 13.0-17.0 [facility] Leukocytes [#/volume] correc celena for nucleated erythrocytes in Blood by Automated counOrdered By: Reina Renae on 10-03-2022 WBC corrected for nucl RBC Auto (Bld) [#/Vol] 6.4 10*3/uL 4.1-10.5 [facility] Lymphocytes Auto (Bld) [#/Vo l]Ordered By: Reina Renae on 10-03-2022 Lymphocytes (Bld) [#/Vol] 1.7 10*3/uL 1.00-4.8 [facility] Lymphocytes/100 WBC Auto (Bl d)Ordered By: Reina Renae on 10-03-2022 Lymphocytes/100 WBC (Bld) 26.3 % . [facility] MCH Auto (RBC) [Entitic mass ]Ordered By: Reina Renae on 10-03-2022 MCH (RBC) [Entitic mass] 29.8 pg 27.5-35.2 [facility] MCHC Auto (RBC) [Mass/Vol]Or dered By: Reina Renae on 10-03-2022 MCHC (RBC) [Mass/Vol] 34.3 g/dL 32.5-35.6 [facility] MCV Auto (RBC) [Entitic vol] Ordered By: Reina Renae on 10-03-2022 MCV (RBC) [Entitic vol] 86.9 fL 83.5-101 [facility] Monocytes Auto (Bld) [#/Vol] Ordered By: Reina Renae on 10-03-2022 Monocytes (Bld) [#/Vol] 0.3 10*3/uL 0.0-0.8 [facility] Monocytes/100 WBC Auto (Bld) Ordered By: Reina Renae on 10-03-2022 Monocytes/100 WBC (Bld) 5.4 % . [facility] Neutrophils Auto (Bld) [#/Vo l]Ordered By: Reina Renae on 10-03-2022 Neutrophils (Bld) [#/Vol] 4.1 10*3/uL 1.8-7.7 [facility] Neutrophils/100 WBC Auto (Bl d)Ordered By: Reina Renae on 10-03-2022 Neutrophils/100 WBC (Bld) 64.6 % . [facility] No Panel InformationOrdered By: Ross Catherine on 10-03-2022 Bedside Glucose Comment Glu2: cleaned meter [facility] No Panel InformationOrdered By: Reina Renae on 10-03-2022 Estimated GFR () 20 mL/Min [facility] Comment on above: GFR estimated refere nce range: According to KDOQI guidelines, <60 ml/min/1.73m2 is sufficient to diagnose a patient with chronic kidney disease. Pharmacy Creatinine Clearance (Chem 25.45 [facility] Nucleated erythrocytes [Pres ence] in Blood by Automated countOrdered By: Reina Renae on 10-03-2022 Nucleated RBC Auto Ql (Bld) 0.2 /100{WBC} 0-0.5 [facility] Platelet mean volume Auto (B ld) [Entitic vol]Ordered By: Reina Renae on 10-03-2022 Platelet mean volume (Bld) [Entitic vol] 8.2 fL 6.6-10.1 [facility] Platelets Auto (Bld) [#/Vol] Ordered By: Reina Renae on 10-03-2022 Platelets (Bld) [#/Vol] 176 10*3/uL 150-450 [facility] RBC Auto (Bld) [#/Vol]Ordere d By: Reina Renae on 10-03-2022 RBC (Bld) [#/Vol] 2.86 10*6/uL 3.90-5.60 [facility] Serum or plasma anion gap de terminationOrdered By: Reina Renae on 10-03-2022 Anion gap [Moles/Vol] 10.1 mmol/L 6.0-15.0 [facility] Serum or plasma calcium farida urement (mass/volume)Ordered By: Reina Renae on 10-03-2022 Calcium [Mass/Vol] 8.0 mg/dL 8.2-10.2 [facility] Serum or plasma chloride trina surement (moles/volume)Ordered By: Reina Renae on 10-03-2022 Chloride [Moles/Vol] 108 mmol/L 95-114 [facility] Serum or plasma creatine kin ase MB (CKMB)/total creatine kinase (CK) ratio by calculaOrdered By: Reina Renae on 10-03-2022 CK.MB Calc [Catalytic fraction] 2.6 % 0.00-2.50 [facility] CK.MB Calc [Catalytic fraction] 2.4 % 0.00-2.50 [facility] Serum or plasma glucose farida urement (mass/volume)Ordered By: Reina Renae on 10-03-2022 Glucose [Mass/Vol] 248 mg/dL 70-100 [facility] Comment on above: ADA recommended refe rence rangeRandom Glucose Reference Range is dependent on time and content of last meal. Glucose of more than 200 mg/dL in a nonstressed, ambulatory subject supports the diagnosis of Diabetes Mellitus. Serum or plasma potassium me asurement (moles/volume)Ordered By: Reina Renae on 10-03-2022 Potassium [Moles/Vol] 4.7 mmol/L 3.5-5.1 [facility] Serum or plasma sodium measu rement (moles/volume)Ordered By: Reina Renae on 10-03-2022 Sodium [Moles/Vol] 136 mmol/L 136-146 [facility] Serum or plasma total carbon dioxide measurement (moles/volume)Ordered By: Reina Renae on 10-03-2022 CO2 [Moles/Vol] 22.6 mmol/L 22.0-30.0 [facility] Serum or plasma urea nitroge n measurement (mass/volume)Ordered By: Reina Renae on 10-03-2022 Urea nitrogen [Mass/Vol] 55 mg/dL 9- [facility] Troponin I.cardiac [Mass/vol ume] in Serum or Plasma by High sensitivity methodOrdered By: Reina Renae on 10-03-2022 Troponin I.cardiac High sensitivity method [Mass/Vol] 18 pg/mL 0-20 [facility] Troponin I.cardiac High sensitivity method [Mass/Vol] 18 pg/mL 0-20 [facility] WBC Auto (Bld) [#/Vol]Ordere d By: Reina Renae on 10-03-2022 WBC (Bld) [#/Vol] 6.4 10*3/uL 4.1-10.5 [facility] Basophils Auto (Bld) [#/Vol] Ordered By: Mickey Gr on 10-02-2022 Basophils (Bld) [#/Vol] 0.1 10*3/uL 0.0-0.2 [facility] Basophils/100 WBC Auto (Bld) Ordered By: Mickey Gr on 10-02-2022 Basophils/100 WBC (Bld) 1.7 % . [facility] Creatinine and Glomerular fi ltration rate.predicted panel (S/P/Bld)Ordered By: Mickey Gr on 10-02-2022 Creatinine [Mass/Vol] 4.16 mg/dL 0.64-1.27 [facility] Eosinophils Auto (Bld) [#/Vo l]Ordered By: Mickey Gr on 10-02-2022 Eosinophils (Bld) [#/Vol] 0.2 10*3/uL 0.0-0.45 [facility] Eosinophils/100 WBC Auto (Bl d)Ordered By: Mickey Gr on 10-02-2022 Eosinophils/100 WBC (Bld) 2.7 % . [facility] Erythrocyte distribution wid th Auto (RBC) [Ratio]Ordered By: Mickey Gr on 10-02-2022 Erythrocyte distribution width (RBC) [Ratio] 13.2 % 12.0-14.8 [facility] Estimated glomerular filtrat ion rate (GFR) non- AmericanOrdered By: Mickey Gr on 10-02-2022 GFR/1.73 sq M.predicted among non-blacks MDRD (S/P/Bld) [Vol rate/Area] 16 mL/Min [facility] Hematocrit Auto (Bld) [Volum e fraction]Ordered By: Mickey Gr on 10-02-2022 Hematocrit (Bld) [Volume fraction] 23.8 % 38.8-50.0 [facility] Hemoglobin [Mass/volume] in BloodOrdered By: Mickey Gr on 10-02-2022 Hemoglobin (Bld) [Mass/Vol] 8.3 g/dL 13.0-17.0 [facility] Laboratory - Chemistry and C hemistry - challengeOrdered By: Mickey Gr on 10-02-2022 Natriuretic peptide B (Bld) [Mass/Vol] 381.0 pg/mL 5-100 [facility] Laboratory - CoagulationOrde red By: Mickey Gr on 10-02-2022 PT Coag (PPP) [Time] 12.1 s 9.0-12.9 [facility] Leukocytes [#/volume] correc celena for nucleated erythrocytes in Blood by Automated counOrdered By: Mickey Gr on 10-02-2022 WBC corrected for nucl RBC Auto (Bld) [#/Vol] 7.2 10*3/uL 4.1-10.5 [facility] Lymphocytes Auto (Bld) [#/Vo l]Ordered By: Mickey Gr on 10-02-2022 Lymphocytes (Bld) [#/Vol] 1.4 10*3/uL 1.00-4.8 [facility] Lymphocytes/100 WBC Auto (Bl d)Ordered By: Mickey Gr on 10-02-2022 Lymphocytes/100 WBC (Bld) 19.9 % . [facility] MCH Auto (RBC) [Entitic mass ]Ordered By: Mickey Gr on 10-02-2022 MCH (RBC) [Entitic mass] 30.4 pg 27.5-35.2 [facility] MCHC Auto (RBC) [Mass/Vol]Or dered By: Mickey Gr on 10-02-2022 MCHC (RBC) [Mass/Vol] 34.9 g/dL 32.5-35.6 [facility] MCV Auto (RBC) [Entitic vol] Ordered By: Mickey Gr on 10-02-2022 MCV (RBC) [Entitic vol] 87.1 fL 83.5-101 [facility] Monocyte distribution width [Entitic volume] in Blood by AutomatedOrdered By: Mickey Gr on 10-02-2022 Monocyte distribution width Auto (Bld) [Entitic vol] 14.39 % 0.00-20.00 [facility] Monocytes Auto (Bld) [#/Vol] Ordered By: Mickey Gr on 10-02-2022 Monocytes (Bld) [#/Vol] 0.4 10*3/uL 0.0-0.8 [facility] Monocytes/100 WBC Auto (Bld) Ordered By: Mickey Gr on 10-02-2022 Monocytes/100 WBC (Bld) 5.5 % . [facility] Neutrophils Auto (Bld) [#/Vo l]Ordered By: Mickey Gr on 10-02-2022 Neutrophils (Bld) [#/Vol] 5.1 10*3/uL 1.8-7.7 [facility] Neutrophils/100 WBC Auto (Bl d)Ordered By: Mickey Gr on 10-02-2022 Neutrophils/100 WBC (Bld) 70.2 % . [facility] No Panel InformationOrdered By: Mickey Gr on 10-02-2022 Estimated GFR () 20 mL/Min [facility] Comment on above: GFR estimated refere nce range: According to KDOQI guidelines, <60 ml/min/1.73m2 is sufficient to diagnose a patient with chronic kidney disease. Pharmacy Creatinine Clearance (Chem 25.83 [facility] Nucleated erythrocytes [Pres ence] in Blood by Automated countOrdered By: Mickey Gr on 10-02-2022 Nucleated RBC Auto Ql (Bld) 0.0 /100{WBC} 0-0.5 [facility] Platelet mean volume Auto (B ld) [Entitic vol]Ordered By: Mickey Gr on 10-02-2022 Platelet mean volume (Bld) [Entitic vol] 8.2 fL 6.6-10.1 [facility] Platelet poor plasma interna tional normalized ratio (INR) by coagulation assay (relatOrdered By: Mickey Gr on 10-02-2022 INR Coag (PPP) [Relative time] 1.0 {INR} [facility] Comment on above: INR Therapeutic Rang [...] 10-02-2022 Platelets (Bld) [#/Vol] 185 10*3/uL 150-450 [facility] RBC Auto (Bld) [#/Vol]Ordere d By: Mickey Gr on 10-02-2022 RBC (Bld) [#/Vol] 2.74 10*6/uL 3.90-5.60 [facility] Serum or plasma anion gap de terminationOrdered By: Mickey Gr on 10-02-2022 Anion gap [Moles/Vol] 15.1 mmol/L 6.0-15.0 [facility] Serum or plasma calcium farida urement (mass/volume)Ordered By: Mickey Gr on 10-02-2022 Calcium [Mass/Vol] 8.2 mg/dL 8.2-10.2 [facility] Serum or plasma chloride trina surement (moles/volume)Ordered By: Mickey rG on 10-02-2022 Chloride [Moles/Vol] 103 mmol/L 95-114 [facility] Serum or plasma glucose farida urement (mass/volume)Ordered By: Mickey Gr on 10-02-2022 Glucose [Mass/Vol] 223 mg/dL 70-100 [facility] Comment on above: ADA recommended refe rence rangeRandom Glucose Reference Range is dependent on time and content of last meal. Glucose of more than 200 mg/dL in a nonstressed, ambulatory subject supports the diagnosis of Diabetes Mellitus. Serum or plasma potassium me asurement (moles/volume)Ordered By: Mickey Gr on 10-02-2022 Potassium [Moles/Vol] 4.4 mmol/L 3.5-5.1 [facility] Serum or plasma sodium measu rement (moles/volume)Ordered By: Mickey Gr on 10-02-2022 Sodium [Moles/Vol] 135 mmol/L 136-146 [facility] Serum or plasma total carbon dioxide measurement (moles/volume)Ordered By: Mickey Gr on 10-02-2022 CO2 [Moles/Vol] 21.3 mmol/L 22.0-30.0 [facility] Serum or plasma urea nitroge n measurement (mass/volume)Ordered By: Mickey Gr on 10-02-2022 Urea nitrogen [Mass/Vol] 54 mg/dL 9-23 [facility] WBC Auto (Bld) [#/Vol]Ordere d By: Mickey Gr on 10-02-2022 WBC (Bld) [#/Vol] 7.2 10*3/uL 4.1-10.5 [facility] Glucose Glucometer (BldC) [M ass/Vol]Ordered By: Romain Mendoza on 09-17-2022 Glucose [Mass/Vol] 178 mg/dL [facility] Comment on above: Random Glucose Refer ence Range is dependent on time and content of last meal. Glucose of more than 200 mg/dL in a nonstressed, ambulatory subject supports the diagnosis of Diabetes Mellitus. No Panel InformationOrdered By: Romain Mendoza on 09-17-2022 Bedside Glucose Comment Glu2: cleaned meter [facility] Serum or plasma potassium me asurement (moles/volume)Ordered By: Romain Mendoza on 09-17-2022 Potassium [Moles/Vol] 4.4 mmol/L 3.5-5.1 [facility] Basophils Auto (Bld) [#/Vol] Ordered By: Romain Mendoza on 09-10-2022 Basophils (Bld) [#/Vol] 0.1 10*3/uL 0.0-0.2 [facility] Basophils/100 WBC Auto (Bld) Ordered By: Romain Mendoza on 09-10-2022 Basophils/100 WBC (Bld) 1.4 % . [facility] Creatinine and Glomerular fi ltration rate.predicted panel (S/P/Bld)Ordered By: Romain Mendoza on 09-10-2022 Creatinine [Mass/Vol] 3.72 mg/dL 0.64-1.27 [facility] Eosinophils Auto (Bld) [#/Vo l]Ordered By: Romain Mendoza on 09-10-2022 Eosinophils (Bld) [#/Vol] 0.1 10*3/uL 0.0-0.45 [facility] Eosinophils/100 WBC Auto (Bl d)Ordered By: Romain Mendoza on 09-10-2022 Eosinophils/100 WBC (Bld) 2.1 % . [facility] Erythrocyte distribution wid th Auto (RBC) [Ratio]Ordered By: Romain Mendoza on 09-10-2022 Erythrocyte distribution width (RBC) [Ratio] 13.5 % 12.0-14.8 [facility] Estimated glomerular filtrat ion rate (GFR) non- AmericanOrdered By: Romain Mendoza on 09-10-2022 GFR/1.73 sq M.predicted among non-blacks MDRD (S/P/Bld) [Vol rate/Area] 18 mL/Min [facility] Hematocrit Auto (Bld) [Volum e fraction]Ordered By: Romain Mendoza on 09-10-2022 Hematocrit (Bld) [Volume fraction] 24.2 % 38.8-50.0 [facility] Hemoglobin [Mass/volume] in BloodOrdered By: Romain Mendoza on 09-10-2022 Hemoglobin (Bld) [Mass/Vol] 8.3 g/dL 13.0-17.0 [facility] Leukocytes [#/volume] correc celena for nucleated erythrocytes in Blood by Automated counOrdered By: Romain Mendoza on 09-10-2022 WBC corrected for nucl RBC Auto (Bld) [#/Vol] 6.7 10*3/uL 4.1-10.5 [facility] Lymphocytes Auto (Bld) [#/Vo l]Ordered By: Romain Mendoza on 09-10-2022 Lymphocytes (Bld) [#/Vol] 1.5 10*3/uL 1.00-4.8 [facility] Lymphocytes/100 WBC Auto (Bl d)Ordered By: Romain Mendoza on 09-10-2022 Lymphocytes/100 WBC (Bld) 22.2 % . [facility] MCH Auto (RBC) [Entitic mass ]Ordered By: Romain Mendoza on 09-10-2022 MCH (RBC) [Entitic mass] 29.8 pg 27.5-35.2 [facility] MCHC Auto (RBC) [Mass/Vol]Or dered By: Romain Mendoza on 09-10-2022 MCHC (RBC) [Mass/Vol] 34.4 g/dL 32.5-35.6 [facility] MCV Auto (RBC) [Entitic vol] Ordered By: Romain Mendoza on 09-10-2022 MCV (RBC) [Entitic vol] 86.7 fL 83.5-101 [facility] Monocytes Auto (Bld) [#/Vol] Ordered By: Romain Mendoza on 09-10-2022 Monocytes (Bld) [#/Vol] 0.4 10*3/uL 0.0-0.8 [facility] Monocytes/100 WBC Auto (Bld) Ordered By: Romain Mendoza on 09-10-2022 Monocytes/100 WBC (Bld) 5.5 % . [facility] Neutrophils Auto (Bld) [#/Vo l]Ordered By: Romain Mendoza on 09-10-2022 Neutrophils (Bld) [#/Vol] 4.6 10*3/uL 1.8-7.7 [facility] Neutrophils/100 WBC Auto (Bl d)Ordered By: Romain Mendoza on 09-10-2022 Neutrophils/100 WBC (Bld) 68.8 % . [facility] No Panel InformationOrdered By: Romain Mendoza on 09-10-2022 Estimated GFR () 22 mL/Min [facility] Comment on above: GFR estimated refere nce range: According to KDOQI guidelines, <60 ml/min/1.73m2 is sufficient to diagnose a patient with chronic kidney disease. Pharmacy Creatinine Clearance (Chem N/A [facility] Nucleated erythrocytes [Pres ence] in Blood by Automated countOrdered By: Romain Mendoza on 09-10-2022 Nucleated RBC Auto Ql (Bld) 0.1 /100{WBC} 0-0.5 [facility] Platelet mean volume Auto (B ld) [Entitic vol]Ordered By: Romain Mendoza on 09-10-2022 Platelet mean volume (Bld) [Entitic vol] 8.4 fL 6.6-10.1 [facility] Platelets Auto (Bld) [#/Vol] Ordered By: Romain Mendoza on 09-10-2022 Platelets (Bld) [#/Vol] 187 10*3/uL 150-450 [facility] RBC Auto (Bld) [#/Vol]Ordere d By: Romain Mendoza on 09-10-2022 RBC (Bld) [#/Vol] 2.79 10*6/uL 3.90-5.60 [facility] Serum or plasma anion gap de terminationOrdered By: Romain Mendoza on 09-10-2022 Anion gap [Moles/Vol] 11.9 mmol/L 6.0-15.0 [facility] Serum or plasma calcium farida urement (mass/volume)Ordered By: Romain Mendoza on 09-10-2022 Calcium [Mass/Vol] 8.1 mg/dL 8.2-10.2 [facility] Serum or plasma chloride trina surement (moles/volume)Ordered By: Romain Mendoza on 09-10-2022 Chloride [Moles/Vol] 105 mmol/L 95-114 [facility] Serum or plasma glucose farida urement (mass/volume)Ordered By: Romain Mendoza on 09-10-2022 Glucose [Mass/Vol] 168 mg/dL 70-100 [facility] Comment on above: ADA recommended refe rence rangeRandom Glucose Reference Range is dependent on time and content of last meal. Glucose of more than 200 mg/dL in a nonstressed, ambulatory subject supports the diagnosis of Diabetes Mellitus. Serum or plasma potassium me asurement (moles/volume)Ordered By: Romain Mendoza on 09-10-2022 Potassium [Moles/Vol] 4.3 mmol/L 3.5-5.1 [facility] Serum or plasma sodium measu rement (moles/volume)Ordered By: Romain Mendoza on 09-10-2022 Sodium [Moles/Vol] 135 mmol/L 136-146 [facility] Serum or plasma total carbon dioxide measurement (moles/volume)Ordered By: Romain Mendoza on 09-10-2022 CO2 [Moles/Vol] 22.4 mmol/L 22.0-30.0 [facility] Serum or plasma urea nitroge n measurement (mass/volume)Ordered By: Romain Mendoza on 09-10-2022 Urea nitrogen [Mass/Vol] 48 mg/dL 05-11 [facility] WBC Auto (Bld) [#/Vol]Ordere d By: Romian Mendoza on 09-10-2022 WBC (Bld) [#/Vol] 6.7 10*3/uL 4.1-10.5 [facility] Albumin [Mass/volume] in Ser um or PlasmaOrdered By: Jorje Small on 09-01-2022 Albumin [Mass/Vol] 2.9 g/dL 2.9-4.4 [facility] Automated erythrocytes count in urine sediment (number/area)Ordered By: Mickey Guerin on 09-01-2022 RBC Auto (Urine sed) [#/Area] 5-9 [HPF] 0-4 [facility] Automated leukocytes count i n urine sediment (number/area)Ordered By: Mickey Guerin on 09-01-2022 WBC Auto (Urine sed) [#/Area] 5-9 [HPF] 0-4 [facility] Automated urine hyaline cast s count (number/volume)Ordered By: Mickey Guerin on 09-01-2022 Hyaline casts Auto (U) [#/Vol] 0-8 [LPF] 0-1 [facility] Basophils Auto (Bld) [#/Vol] Ordered By: Jorje Small on 09-01-2022 Basophils (Bld) [#/Vol] 0.1 10*3/uL 0.0-0.2 [facility] Basophils/100 WBC Auto (Bld) Ordered By: Jorje Small on 09-01-2022 Basophils/100 WBC (Bld) 1.7 % . [facility] Bilirubin Test strip Ql (U)O rdered By: Mickey Guerin on 09-01-2022 Bilirubin Ql (U) Negative Negative [facility] Casts typing in urine sedime nt by light microscopyOrdered By: Mickey Guerin on 09-01-2022 Casts LM Nom (Urine sed) None seen [LPF] None Seen [facility] Color Auto (U)Ordered By: Kapil Guerin on 09-01-2022 Color (U) Yellow Yellow [facility] Eosinophils Auto (Bld) [#/Vo l]Ordered By: Jorje Small on 09-01-2022 Eosinophils (Bld) [#/Vol] 0.1 10*3/uL 0.0-0.45 [facility] Eosinophils/100 WBC Auto (Bl d)Ordered By: Jorje Small on 09-01-2022 Eosinophils/100 WBC (Bld) 2.3 % . [facility] Erythrocyte distribution wid th Auto (RBC) [Ratio]Ordered By: Jorje Small on 09-01-2022 Erythrocyte distribution width (RBC) [Ratio] 13.2 % 12.0-14.8 [facility] Fine granular cast count in urine sediment by microscopy (number/low power field )Ordered By: Mickey Guerin on 09-01-2022 Fine Granular Casts LM.LPF (Urine sed) [#/Area] 3-4 [LPF] 0-1 [facility] Hematocrit Auto (Bld) [Volum e fraction]Ordered By: Jorje Small on 09-01-2022 Hematocrit (Bld) [Volume fraction] 27.2 % 38.8-50.0 [facility] Hemoglobin [Mass/volume] in BloodOrdered By: Jorje Small on 09-01-2022 Hemoglobin (Bld) [Mass/Vol] 9.5 g/dL 13.0-17.0 [facility] IgA [Mass/volume] in Serum o r PlasmaOrdered By: Jorje Small on 09-01-2022 IgA [Mass/Vol] 314 mg/dL 90-386 [facility] IgG [Mass/volume] in Serum o r PlasmaOrdered By: Jorje Small on 09-01-2022 IgG [Mass/Vol] 1043 mg/dL 603-1613 [facility] IgM [Mass/volume] in Serum o r PlasmaOrdered By: Jorje Small on 09-01-2022 IgM [Mass/Vol] 189 mg/dL 20-172 [facility] Comment on above: Performed at: [email or web address] [address] [id number] Director: Pablito Alexander PhD, Phone: [phone] Immunoglobulin light chains. kappa.free [Mass/volume] in SerumOrdered By: Jorje Small on 09-01-2022 Immunoglobulin light chains.kappa.free (S) [Mass/Vol] 128.0 mg/L 3.3-19.4 [facility] Immunoglobulin light chains. kappa.free/Immunoglobulin light chains.lambda.free [MassOrdered By: Jorje Small on 09-01-2022 Immunoglobulin light chains.kappa.free/Immun oglobulin light chains.lambda.free (S) [Mass ratio] 1.65 0.26-1.65 [facility] Comment on above: Performed at: [email or web address] [address] [id number] Director: Pablito Alexander PhD, Phone: [phone] Immunoglobulin light chains. lambda.free [Mass/volume] in Serum or PlasmaOrdered By: Jorje Small on 09-01-2022 Immunoglobulin light chains.lambda.free [Mass/Vol] 77.5 mg/L 5.7-26.3 [facility] Ketones Auto test strip (U) [Mass/Vol]Ordered By: Mickey Guerin on 09-01-2022 Ketones (U) [Mass/Vol] Negative Negative [facility] Leukocytes [#/volume] correc celena for nucleated erythrocytes in Blood by Automated counOrdered By: Jorje Small on 09-01-2022 WBC corrected for nucl RBC Auto (Bld) [#/Vol] 6.2 10*3/uL 4.1-10.5 [facility] Lymphocytes Auto (Bld) [#/Vo l]Ordered By: Jorje Small on 09-01-2022 Lymphocytes (Bld) [#/Vol] 1.3 10*3/uL 1.00-4.8 [facility] Lymphocytes/100 WBC Auto (Bl d)Ordered By: Jorje Small on 09-01-2022 Lymphocytes/100 WBC (Bld) 20.4 % . [facility] MCH Auto (RBC) [Entitic mass ]Ordered By: Jorje Small on 09-01-2022 MCH (RBC) [Entitic mass] 30.1 pg 27.5-35.2 [facility] MCHC Auto (RBC) [Mass/Vol]Or dered By: Jorje Small on 09-01-2022 MCHC (RBC) [Mass/Vol] 34.9 g/dL 32.5-35.6 [facility] MCV Auto (RBC) [Entitic vol] Ordered By: Jorje Small on 09-01-2022 MCV (RBC) [Entitic vol] 86.2 fL 83.5-101 [facility] Monocytes Auto (Bld) [#/Vol] Ordered By: Jorje Small on 09-01-2022 Monocytes (Bld) [#/Vol] 0.3 10*3/uL 0.0-0.8 [facility] Monocytes/100 WBC Auto (Bld) Ordered By: Jorje Small on 09-01-2022 Monocytes/100 WBC (Bld) 5.5 % . [facility] Neutrophils Auto (Bld) [#/Vo l]Ordered By: Jorje Small on 09-01-2022 Neutrophils (Bld) [#/Vol] 4.3 10*3/uL 1.8-7.7 [facility] Neutrophils/100 WBC Auto (Bl d)Ordered By: Jorje Small on 09-01-2022 Neutrophils/100 WBC (Bld) 70.1 % . [facility] Nitrite Test strip Ql (U)Ord ered By: Mickey Guerin on 09-01-2022 Nitrite Ql (U) Negative Negative [facility] No Panel InformationOrdered By: Mickey Guerin on 09-01-2022 Miscellaneous Test See comment [facility] Comment on above: See report. Scanned copy available in EMR. No Panel InformationOrdered By: Jorje Small on 09-01-2022 Protein Electrophoresis [place] Not observed g/dL Not Observed [facility] Protein Electrophoresis Note See comment . [facility] Comment on above: Protein electrophore sis scan will follow via computer,mail, or jewelry making instructor delivery.Performed at: [facility] [employer] [id number] Director: Pablito Alexander PhD, Phone: [phone] Serum Immunofixation Comment: . [facility] Comment on above: Presence of monoclon al protein is unclear at this time. Suggestrepeat in 3 to 6 months if clinically indicated. Nucleated erythrocytes [Pres ence] in Blood by Automated countOrdered By: Jorje Small on 09-01-2022 Nucleated RBC Auto Ql (Bld) 0.2 /100{WBC} 0-0.5 [facility] Platelet mean volume Auto (B ld) [Entitic vol]Ordered By: Jorje Small on 09-01-2022 Platelet mean volume (Bld) [Entitic vol] 8.3 fL 6.6-10.1 [facility] Platelets Auto (Bld) [#/Vol] Ordered By: Jorje Small on 09-01-2022 Platelets (Bld) [#/Vol] 217 10*3/uL 150-450 [facility] Protein Auto test strip (U) [Mass/Vol]Ordered By: Mickey Guerin on 09-01-2022 Protein (U) [Mass/Vol] mg/dL Negative [facility] Protein [Mass/volume] in Ser um or PlasmaOrdered By: Jorje Small on 09-01-2022 Protein [Mass/Vol] 5.9 g/dL 6.0-8.5 [facility] RBC Auto (Bld) [#/Vol]Ordere d By: Jorje Small on 09-01-2022 RBC (Bld) [#/Vol] 3.16 10*6/uL 3.90-5.60 [facility] Serum globulin measurement ( mass/volume)Ordered By: Jorje Small on 09-01-2022 Globulin (S) [Mass/Vol] 3.0 g/dL 2.2-3.9 [facility] Serum or plasma albumin/glob ulin mass ratioOrdered By: Jorje Small on 09-01-2022 Albumin/Globulin [Mass ratio] 1.0 {ratio} 0.7-1.7 [facility] Serum or plasma alpha 1 glob ulin measurement by electrophoresis (mass/volume)Ordered By: Jorje Small on 09-01-2022 Alpha 1 globulin Elph [Mass/Vol] 0.2 g/dL 0.0-0.4 [facility] Serum or plasma alpha 2 glob ulin measurement by electrophoresis (mass/volume)Ordered By: Jorje Small on 09-01-2022 Alpha 2 globulin Elph [Mass/Vol] 0.9 g/dL 0.4-1.0 [facility] Serum or plasma beta globuli n measurement by electrophoresis (mass/volume)Ordered By: Jorje Small on 09-01-2022 Beta globulin Elph [Mass/Vol] 0.8 g/dL 0.7-1.3 [facility] Serum or plasma gamma globul in measurement by electrophoresis (mass/volume)Ordered By: Jorje Small on 09-01-2022 Gamma globulin Elph [Mass/Vol] 1.1 g/dL 0.4-1.8 [facility] Specific gravity Auto test s trip (U) [Rel density]Ordered By: Mickey Guerin on 09-01-2022 Specific gravity (U) [Rel density] 1.016 1.001-1.030 [facility] Squamous epithelial cells de tection in urine sediment by light microscopyOrdered By: Mickey Guerin on 09-01-2022 Epithelial cells.squamous LM Ql (Urine sed) 5-9 [HPF] 0-2 [facility] Urine bacteria detection by automated methodOrdered By: Mickey Guerin on 09-01-2022 Bacteria Auto Ql (U) None seen None Seen [facility] Urine clarity by refractomet ry automatedOrdered By: Mickey Guerin on 09-01-2022 Clarity Refractometry automated (U) Cloudy Clear [facility] Urine glucose measurement by automated test strip (mass/volume)Ordered By: Mickey Guerin on 09-01-2022 Glucose Auto test strip (U) [Mass/Vol] >=1000 mg/dL Normal [facility] Urine hemoglobin detection b y automated test stripOrdered By: Mickey Guerin on 09-01-2022 Hemoglobin Auto test strip Ql (U) Trace Negative [facility] Urine leukocyte esterase det ection by automated test stripOrdered By: Mickey Guerin on 09-01-2022 Leukocyte esterase Auto test strip Ql (U) Negative Negative [facility] Urine microalbumin measureme nt with detection limit of 20 mg/L or less (mass/volume)Ordered By: Mickey Guerin on 09-01-2022 Albumin DL <= 20 mg/L (U) [Mass/Vol] See comment 0.0-1.8 [facility] Comment on above: SENT TO [facility] REPORT Urine sediment renal epithel ial cell count by microscopy (number/high power field)Ordered By: Mickey Guerin on 09-01-2022 Epithelial cells.renal LM.HPF (Urine sed) [#/Area] None seen [HPF] 0-1 [facility] Urobilinogen Auto test strip (U) [Mass/Vol]Ordered By: Mickey Guerin on 09-01-2022 Urobilinogen (U) [Mass/Vol] Normal mg/dL Normal [facility] WBC Auto (Bld) [#/Vol]Ordere d By: Jorje Small on 09-01-2022 WBC (Bld) [#/Vol] 6.2 10*3/uL 4.1-10.5 [facility] pH Auto test strip (U)Ordere d By: Mickey Guerin on 09-01-2022 pH (U) 5.0 [pH] 5.0-9.0 [facility] Albumin [Mass/volume] in Ser um or PlasmaOrdered By: Angel Mejía on 08-17-2022 Albumin [Mass/Vol] 2.6 g/dL 3.2-5.[address] [facility] [address] biopsyOrdered By: Varsha ricardo on 12-30-2022 Transferrin [Mass/Vol] 143 mg/dL 180-380 [facility] Creatinine and Glomerular fi ltration rate.predicted panel (S/P/Bld)Ordered By: Angel Mejía on 08-17-2022 Creatinine [Mass/Vol] 3.58 mg/dL 0.64-1.27 [facility] Erythrocyte distribution wid th Auto (RBC) [Ratio]Ordered By: Angel Meíja on 08-17-2022 Erythrocyte distribution width (RBC) [Ratio] 13.6 % 12.0-14.8 [facility] Estimated glomerular filtrat ion rate (GFR) non- AmericanOrdered By: Angel Mejía on 08-17-2022 GFR/1.73 sq M.predicted among non-blacks MDRD (S/P/Bld) [Vol rate/Area] 19 mL/Min [facility] Ferritin [Mass/volume] in Se rum or PlasmaOrdered By: Angel Mejía on 08-17-2022 Ferritin [Mass/Vol] 135.6 ng/mL 23.9-336.2 [facility] Hematocrit Auto (Bld) [Volum e fraction]Ordered By: Angel Mejía on 08-17-2022 Hematocrit (Bld) [Volume fraction] 28.6 % 38.8-50.0 [facility] Hemoglobin [Mass/volume] in BloodOrdered By: Angel Mejía on 08-17-2022 Hemoglobin (Bld) [Mass/Vol] 10.0 g/dL 13.0-17.0 [facility] Iron [Mass/volume] in Serum or PlasmaOrdered By: Angel Mejía on 08-17-2022 Iron [Mass/Vol] 68 ug/dL 40-160 [facility] Iron binding capacity [Mass/ volume] in Serum or PlasmaOrdered By: Angel Joyce on 08-17-2022 Iron binding capacity [Mass/Vol] 200 ug/dL 255-450 [facility] Iron saturation [Mass Fracti on] in Serum or PlasmaOrdered By: Angel Joyce on 08-17-2022 Iron saturation [Mass fraction] 34.0 % 20-50 [facility] Laboratory - Chemistry and C hemistry - challengeOrdered By: Angel Mejía on 08-17-2022 Magnesium [Mass/Vol] 2.0 mg/dL 1.6-2.6 [facility] Leukocytes [#/volume] correc celena for nucleated erythrocytes in Blood by Automated counOrdered By: Angel Mejía on 08-17-2022 WBC corrected for nucl RBC Auto (Bld) [#/Vol] 10.0 10*3/uL 4.1-10.5 [facility] MCH Auto (RBC) [Entitic mass ]Ordered By: Angel Mejía on 08-17-2022 MCH (RBC) [Entitic mass] 29.8 pg 27.5-35.2 [facility] MCHC Auto (RBC) [Mass/Vol]Or dered By: Angel Mejía on 08-17-2022 MCHC (RBC) [Mass/Vol] 35.0 g/dL 32.5-35.6 [facility] MCV Auto (RBC) [Entitic vol] Ordered By: Angel Mejía on 08-17-2022 MCV (RBC) [Entitic vol] 85.3 fL 83.5-101 [facility] No Panel InformationOrdered By: Angel Mejía on 08-17-2022 25-Hydroxy Vitamin D Total 13.1 ng/mL 30-100 [facility] Comment on above: VITAMIN D STATUS 25( [place])VITAMIN D RANGE (ng/mL) Deficient <20 Insufficient 20 to <30Sufficient 30 to 100Reference: Vanna MF,Chemo NC, Sergey SIMENTAL, et al. Evaluation,treatment, and prevention of vitamin D deficiency; an Endocrine Society clinical practice guideline. JCEM. 2010; 96(7):1911-30. Estimated GFR () 23 mL/Min [facility] Comment on above: GFR estimated refere nce range: According to KDOQI guidelines, <60 ml/min/1.73m2 is sufficient to diagnose a patient with chronic kidney disease. Pharmacy Creatinine Clearance (Chem N/A [facility] Phosphate [Mass/volume] in S gretta or PlasmaOrdered By: Angel Mejía on 08-17-2022 Phosphate [Mass/Vol] 5.0 mg/dL 2.5-4.6 [facility] Platelet mean volume Auto (B ld) [Entitic vol]Ordered By: Angel Mejía on 08-17-2022 Platelet mean volume (Bld) [Entitic vol] 8.3 fL 6.6-10.1 [facility] Platelets Auto (Bld) [#/Vol] Ordered By: Angel Mejía on 08-17-2022 Platelets (Bld) [#/Vol] 205 10*3/uL 150-450 [facility] RBC Auto (Bld) [#/Vol]Ordere d By: Angel Mejía on 08-17-2022 RBC (Bld) [#/Vol] 3.35 10*6/uL 3.90-5.60 [facility] Serum or plasma anion gap de terminationOrdered By: Angel Mejía on 08-17-2022 Anion gap [Moles/Vol] 9.9 mmol/L 6.0-15.0 [facility] Serum or plasma calcium farida urement (mass/volume)Ordered By: Angel Mejía on 08-17-2022 Calcium [Mass/Vol] 8.4 mg/dL 8.2-10.2 [facility] Serum or plasma chloride trina surement (moles/volume)Ordered By: Angel Mejía on 08-17-2022 Chloride [Moles/Vol] 107 mmol/L 95-114 [facility] Serum or plasma glucose farida urement (mass/volume)Ordered By: Angel Mejía on 08-17-2022 Glucose [Mass/Vol] 202 mg/dL 70-100 [facility] Comment on above: ADA recommended refe rence rangeRandom Glucose Reference Range is dependent on time and content of last meal. Glucose of more than 200 mg/dL in a nonstressed, ambulatory subject supports the diagnosis of Diabetes Mellitus. Serum or plasma intact parat hyroid hormone measurement (mass/volume)Ordered By: Angel Mejía on 08-17-2022 Parathyrin.intact [Mass/Vol] 253.7 pg/mL 12-88 [facility] Serum or plasma potassium me asurement (moles/volume)Ordered By: Angel Mejía on 08-17-2022 Potassium [Moles/Vol] 5.0 mmol/L 3.5-5.1 [facility] Serum or plasma sodium measu rement (moles/volume)Ordered By: Angel Mejía on 08-17-2022 Sodium [Moles/Vol] 136 mmol/L 136-146 [facility] Serum or plasma total carbon dioxide measurement (moles/volume)Ordered By: Angel Mejía on 08-17-2022 CO2 [Moles/Vol] 24.1 mmol/L 22.0-30.0 [facility] Serum or plasma urea nitroge n measurement (mass/volume)Ordered By: Angel Mejía on 08-17-2022 Urea nitrogen [Mass/Vol] 47 mg/dL 9-23 [facility] Serum or plasma uric acid me asurement (mass/volume)Ordered By: Angel Mejía on 08-17-2022 Urate [Mass/Vol] 6.6 mg/dL 2.6-7.2 [facility] Automated erythrocytes count in urine sediment (number/area)Ordered By: Tenzin Ortiz on 08-13-2022 RBC Auto (Urine sed) [#/Area] 10-19 [HPF] 0-4 [facility] Automated leukocytes count i n urine sediment (number/area)Ordered By: Tenzin Ortiz on 08-13-2022 WBC Auto (Urine sed) [#/Area] 1-2 [HPF] 0-4 [facility] Bilirubin Test strip Ql (U)O rdered By: Tenzin Ortiz on 08-13-2022 Bilirubin Ql (U) Negative Negative [facility] Color Auto (U)Ordered By: Jose Luis Ortiz on 08-13-2022 Color (U) Yellow Yellow [facility] Glucose Glucometer (BldC) [M ass/Vol]Ordered By: Law Cano on 08-13-2022 Glucose [Mass/Vol] 276 mg/dL [facility] Comment on above: Random Glucose Refer ence Range is dependent on time and content of last meal. Glucose of more than 200 mg/dL in a nonstressed, ambulatory subject supports the diagnosis of Diabetes Mellitus. Ketones Auto test strip (U) [Mass/Vol]Ordered By: Tenzin Ortiz on 08-13-2022 Ketones (U) [Mass/Vol] Negative Negative [facility] Laboratory - Chemistry and C hemistry - challengeOrdered By: Isidoro Mesa on 08-13-2022 Magnesium [Mass/Vol] 1.9 mg/dL 1.6-2.6 [facility] Laboratory - UrinalysisOrder ed By: Tenzin Ortiz on 08-13-2022 Hyaline casts LM Ql (Urine sed) 0-8 [LPF] 0-8 [facility] Nitrite Test strip Ql (U)Ord ered By: Tenzin Ortiz on 08-13-2022 Nitrite Ql (U) Negative Negative [facility] Protein Auto test strip (U) [Mass/Vol]Ordered By: Tenzin Ortiz on 08-13-2022 Protein (U) [Mass/Vol] 300 mg/dL Negative [facility] Specific gravity Auto test s trip (U) [Rel density]Ordered By: Tenzin Ortiz on 08-13-2022 Specific gravity (U) [Rel density] 1.011 1.001-1.030 [facility] Squamous epithelial cells de tection in urine sediment by light microscopyOrdered By: Tenzin Ortiz on 08-13-2022 Epithelial cells.squamous LM Ql (Urine sed) 0-1 [HPF] 0-2 [facility] Troponin I.cardiac [Mass/vol ume] in Serum or Plasma by High sensitivity methodOrdered By: Isidoro Mesa on 08-13-2022 Troponin I.cardiac High sensitivity method [Mass/Vol] 31 pg/mL 0-20 [facility] Urine bacteria detection by automated methodOrdered By: Tenzin Ortiz on 08-13-2022 Bacteria Auto Ql (U) None seen None Seen [facility] Urine clarity by refractomet ry automatedOrdered By: Tenzin Ortiz on 08-13-2022 Clarity Refractometry automated (U) Clear Clear [facility] Urine glucose measurement by automated test strip (mass/volume)Ordered By: Tenzin Ortiz on 08-13-2022 Glucose Auto test strip (U) [Mass/Vol] 250 mg/dL Normal [facility] Urine hemoglobin detection b y automated test stripOrdered By: Tenzin Ortiz on 08-13-2022 Hemoglobin Auto test strip Ql (U) 1+ Negative [facility] Urine leukocyte esterase det ection by automated test stripOrdered By: Tenzin Ortiz on 08-13-2022 Leukocyte esterase Auto test strip Ql (U) Negative Negative [facility] Urobilinogen Auto test strip (U) [Mass/Vol]Ordered By: Tenzin Ortiz on 08-13-2022 Urobilinogen (U) [Mass/Vol] Normal mg/dL Normal [facility] pH Auto test strip (U)Ordere d By: Tenzin Ortiz on 08-13-2022 pH (U) 5.5 [pH] 5.0-9.0 [facility] Activated partial thrombopla stin time (aPTT) in platelet poor plasma by coagulation aOrdered By: Tenzin Ortiz on 08-12-2022 aPTT Coag (PPP) [Time] 36.3 s 25.1-36.5 [facility] Albumin [Mass/volume] in Ser um or PlasmaOrdered By: Tenzin Ortiz on 08-12-2022 Albumin [Mass/Vol] 2.4 g/dL 3.2-5.5 [facility] Basophils Auto (Bld) [#/Vol] Ordered By: Tenzin Ortiz on 08-12-2022 Basophils (Bld) [#/Vol] 0.1 10*3/uL 0.0-0.2 [facility] Basophils/100 WBC Auto (Bld) Ordered By: Tenzin Ortiz on 08-12-2022 Basophils/100 WBC (Bld) 1.5 % . [facility] Creatine kinase [Enzymatic a ctivity/volume] in Serum or PlasmaOrdered By: Tenzin Ortiz on 08-12-2022 CK [Catalytic activity/Vol] 236 U/L 22-269 [facility] Creatinine and Glomerular fi ltration rate.predicted panel (S/P/Bld)Ordered By: Tenzin Ortiz on 08-12-2022 Creatinine [Mass/Vol] 3.85 mg/dL 0.64-1.27 [facility] Eosinophils Auto (Bld) [#/Vo l]Ordered By: Tenzin Ortiz on 08-12-2022 Eosinophils (Bld) [#/Vol] 0.1 10*3/uL 0.0-0.45 [facility] Eosinophils/100 WBC Auto (Bl d)Ordered By: Tenzin Ortiz on 08-12-2022 Eosinophils/100 WBC (Bld) 2.7 % . [facility] Erythrocyte distribution wid th Auto (RBC) [Ratio]Ordered By: Tenzin Ortiz on 08-12-2022 Erythrocyte distribution width (RBC) [Ratio] 13.6 % 12.0-14.8 [facility] Estimated glomerular filtrat ion rate (GFR) non- AmericanOrdered By: Tenzin Ortiz on 08-12-2022 GFR/1.73 sq M.predicted among non-blacks MDRD (S/P/Bld) [Vol rate/Area] 18 mL/Min [facility] Globulin Calc (S) [Mass/Vol] Ordered By: Tenzin Ortiz on 08-12-2022 Globulin (S) [Mass/Vol] 2.8 g/dL [facility] Hematocrit Auto (Bld) [Volum e fraction]Ordered By: Tenzin Ortiz on 08-12-2022 Hematocrit (Bld) [Volume fraction] 23.4 % 38.8-50.0 [facility] Hemoglobin [Mass/volume] in BloodOrdered By: Tenzin Ortiz on 08-12-2022 Hemoglobin (Bld) [Mass/Vol] 8.3 g/dL 13.0-17.0 [facility] Laboratory - CoagulationOrde red By: Tenzin Ortiz on 08-12-2022 PT Coag (PPP) [Time] 12.0 s 9.0-12.9 [facility] Leukocytes [#/volume] correc celena for nucleated erythrocytes in Blood by Automated counOrdered By: Tenzin Ortiz on 08-12-2022 WBC corrected for nucl RBC Auto (Bld) [#/Vol] 5.4 10*3/uL 4.1-10.5 [facility] Lymphocytes Auto (Bld) [#/Vo l]Ordered By: Tenzin Ortiz on 08-12-2022 Lymphocytes (Bld) [#/Vol] 1.6 10*3/uL 1.00-4.8 [facility] Lymphocytes/100 WBC Auto (Bl d)Ordered By: Tenzin Ortiz on 08-12-2022 Lymphocytes/100 WBC (Bld) 29.2 % . [facility] MCH Auto (RBC) [Entitic mass ]Ordered By: Tenzin Ortiz on 08-12-2022 MCH (RBC) [Entitic mass] 30.1 pg 27.5-35.2 [facility] MCHC Auto (RBC) [Mass/Vol]Or dered By: Tenzin Ortiz on 08-12-2022 MCHC (RBC) [Mass/Vol] 35.4 g/dL 32.5-35.6 [facility] MCV Auto (RBC) [Entitic vol] Ordered By: Tenzin Ortiz on 08-12-2022 MCV (RBC) [Entitic vol] 85.1 fL 83.5-101 [facility] Monocyte distribution width [Entitic volume] in Blood by AutomatedOrdered By: Tenzin Ortiz on 08-12-2022 Monocyte distribution width Auto (Bld) [Entitic vol] 17.67 % 0.00-20.00 [facility] Monocytes Auto (Bld) [#/Vol] Ordered By: Tenzin Ortiz on 08-12-2022 Monocytes (Bld) [#/Vol] 0.5 10*3/uL 0.0-0.8 [facility] Monocytes/100 WBC Auto (Bld) Ordered By: Tenzin Ortiz on 08-12-2022 Monocytes/100 WBC (Bld) 8.9 % . [facility] Neutrophils Auto (Bld) [#/Vo l]Ordered By: Tenzin Ortiz on 08-12-2022 Neutrophils (Bld) [#/Vol] 3.1 10*3/uL 1.8-7.7 [facility] Neutrophils/100 WBC Auto (Bl d)Ordered By: Tenzin Ortiz on 08-12-2022 Neutrophils/100 WBC (Bld) 57.7 % . [facility] No Panel InformationOrdered By: Tenzin Ortiz on 08-12-2022 Estimated GFR () 21 mL/Min [facility] Comment on above: GFR estimated refere nce range: According to KDOQI guidelines, <60 ml/min/1.73m2 is sufficient to diagnose a patient with chronic kidney disease. Pharmacy Creatinine Clearance (Chem 28.24 [facility] Nucleated erythrocytes [Pres ence] in Blood by Automated countOrdered By: Tenzin Ortiz on 08-12-2022 Nucleated RBC Auto Ql (Bld) 0.1 /100{WBC} 0-0.5 [facility] Platelet mean volume Auto (B ld) [Entitic vol]Ordered By: Tenzin Ortiz on 08-12-2022 Platelet mean volume (Bld) [Entitic vol] 7.9 fL 6.6-10.1 [facility] Platelet poor plasma interna tional normalized ratio (INR) by coagulation assay (relatOrdered By: Tenzin Ortiz on 08-12-2022 INR Coag (PPP) [Relative time] 1.1 {INR} [facility] Comment on above: INR Therapeutic Rang [...] 08-12-2022 Platelets (Bld) [#/Vol] 148 10*3/uL 150-450 [facility] Protein [Mass/volume] in Ser um or PlasmaOrdered By: Tenzin Ortiz on 08-12-2022 Protein [Mass/Vol] 5.2 g/dL 6.1-7.9 [facility] RBC Auto (Bld) [#/Vol]Ordere d By: Tenzin Ortiz on 08-12-2022 RBC (Bld) [#/Vol] 2.74 10*6/uL 3.90-5.60 [facility] Serum or plasma alanine matthews otransferase measurement without P-5'-P (enzymatic activiOrdered By: Tenzin Ortiz on 08-12-2022 ALT No additional P-5'-P [Catalytic activity/Vol] 11 U/L 10-60 [facility] Serum or plasma albumin/glob ulin mass ratioOrdered By: Tenzin Ortiz on 08-12-2022 Albumin/Globulin [Mass ratio] 0.9 {ratio} [facility] Serum or plasma alkaline harriett sphatase measurement (enzymatic activity/volume)Ordered By: Tenzin Ortiz on 08-12-2022 ALP [Catalytic activity/Vol] 68 U/L 32-92 [facility] Serum or plasma anion gap de terminationOrdered By: Tenzin Ortiz on 08-12-2022 Anion gap [Moles/Vol] 12.3 mmol/L 6.0-15.0 [facility] Serum or plasma aspartate am inotransferase measurement (enzymatic activity/volume)Ordered By: Tenzin Ortiz on 08-12-2022 AST [Catalytic activity/Vol] 12 U/L 10-42 [facility] Serum or plasma calcium farida urement (mass/volume)Ordered By: Tenzin Ortiz on 08-12-2022 Calcium [Mass/Vol] 7.7 mg/dL 8.2-10.2 [facility] Serum or plasma chloride trina surement (moles/volume)Ordered By: Tenzin Ortiz on 08-12-2022 Chloride [Moles/Vol] 107 mmol/L 95-114 [facility] Serum or plasma creatine kin ase MB (CKMB)/total creatine kinase (CK) ratio by calculaOrdered By: Tenzin Ortiz on 08-12-2022 CK.MB Calc [Catalytic fraction] 2.7 % 0.00-2.50 [facility] Serum or plasma creatine kin ase MB measurement (mass/volume)Ordered By: Tenzin Ortiz on 08-12-2022 CK.MB [Mass/Vol] 6.6 ng/mL 0.6-6.3 [facility] Serum or plasma glucose farida urement (mass/volume)Ordered By: Tenzin Ortiz on 08-12-2022 Glucose [Mass/Vol] 198 mg/dL 70-100 [facility] Comment on above: ADA recommended refe rence rangeRandom Glucose Reference Range is dependent on time and content of last meal. Glucose of more than 200 mg/dL in a nonstressed, ambulatory subject supports the diagnosis of Diabetes Mellitus. Serum or plasma potassium me asurement (moles/volume)Ordered By: Tenzin Ortiz on 08-12-2022 Potassium [Moles/Vol] 4.2 mmol/L 3.5-5.1 [facility] Serum or plasma sodium measu rement (moles/volume)Ordered By: Tenzin Ortiz on 08-12-2022 Sodium [Moles/Vol] 136 mmol/L 136-146 [facility] Serum or plasma total biliru bin measurement (mass/volume)Ordered By: Tenzin Ortiz on 08-12-2022 Bilirubin [Mass/Vol] 0.4 mg/dL 0.3-1.2 [facility] Serum or plasma total carbon dioxide measurement (moles/volume)Ordered By: Tenzin Ortiz on 08-12-2022 CO2 [Moles/Vol] 20.9 mmol/L 22.0-30.0 [facility] Serum or plasma urea nitroge n measurement (mass/volume)Ordered By: Tenzin Ortiz on 08-12-2022 Urea nitrogen [Mass/Vol] 45 mg/dL 9- [facility] Troponin I.cardiac [Mass/vol ume] in Serum or Plasma by High sensitivity methodOrdered By: Tenzin Ortiz on 08-12-2022 Troponin I.cardiac High sensitivity method [Mass/Vol] 24 pg/mL 0- [facility] WBC Auto (Bld) [#/Vol]Ordere d By: Tenzin Ortiz on 08-12-2022 WBC (Bld) [#/Vol] 5.4 10*3/uL 4.1-10.5 [facility] CNPNon 08-02-2022 CNPN Telephone (TXCTGL) -------- YOEL WERNER ([id number]) 1985 M Date Time Provider Department 08/02/22 NAUN WILLIS TXCTGL During your visit today, we recorded the following information about you: Naun Lazaro 08/02/2022 10:42 AM Signed Returned call [...] Status:Closed by NAUN WILLIS on 08/02/22 Normal [facility] Albumin [Mass/volume] in Ser um or PlasmaOrdered By: Cipriano Stiles on 07-19-2022 Albumin [Mass/Vol] 2.6 g/dL 3.2-5.5 [facility] C reactive protein [Mass/vol ume] in Serum or Plasma by High sensitivity methodOrdered By: Denilson Gomez on 07-19-2022 CRP High sensitivity method [Mass/Vol] 0.7 mg/L [facility] Comment on above: Cardiovascular Risk Classification [...] on 07-19-2022 Cholesterol [Mass/Vol] 164 mg/dL 140-200 [facility] Comment on above: Chol less than 200 m g/dl low riskChol 201-239 mg/dl borderline riskChol 240 mg/dl and greater high risk Cholesterol in LDL Calc [Mas s/Vol]Ordered By: Denilson Gomez on 07-19-2022 Cholesterol in LDL [Mass/Vol] 111 mg/dL 0-100 [facility] Comment on above: LDL ATP III CLASSIFI CATIONLDL less than 100 mg/dL OptimalLDL 100-129 mg/dL Near or above optimalLDL 130-159 mg/dL Borderline highLDL 160-189 mg/dL HighLDL greater than 189 mg/dL Very high Cholesterol in VLDL Calc [Ma ss/Vol]Ordered By: Denilson Gomez on 07-19-2022 Cholesterol in VLDL [Mass/Vol] 16 mg/dL [facility] Creatinine [Mass/volume] in UrineOrdered By: Cipriano Stiles on 07-19-2022 Creatinine (U) [Mass/Vol] 76.5 mg/dL [facility] Comment on above: No reference range e stablished Creatinine and Glomerular fi ltration rate.predicted panel (S/P/Bld)Ordered By: Cipriano Stiles on 07-19-2022 Creatinine [Mass/Vol] 3.21 mg/dL 0.64-1.27 [facility] Estimated glomerular filtrat ion rate (GFR) non- AmericanOrdered By: Cipriano Stiles on 07-19-2022 GFR/1.73 sq M.predicted among non-blacks MDRD (S/P/Bld) [Vol rate/Area] 22 mL/Min [facility] Laboratory - Chemistry and C hemistry - challengeon 07-19-2022 Cholesterol [Mass/Vol] 164\S\164 Normal 140-200 [facility] -[facility] marianne 250 DO Work Phone: Comment on above: Chol less than 200 m g/dl low risk Chol 201-239 mg/dl borderline risk Chol 240 mg/dl and greater high risk Cholesterol in LDL [Mass/Vol] 111\S\111 above high threshold 0-100 [facility] [employer] 250 DO Work Phone: Comment on above: LDL ATP III CLASSIFI CATION LDL less than 100 mg/dL Optimal LDL 100-129 mg/dL Near or above optimal LDL 130-159 mg/dL Borderline high LDL 160-189 mg/dL High LDL greater than 189 mg/dL Very high No Panel Informationon 07-19 [facility] [employer] 250 DO Work Phone: 0.7\S\0.7 Normal [facility]ne [facility] DO Work Phone: [...] this marker for estimation of CVD risk.PERFORMED BY:[facility] [place], [place] [phone] MEDICAL DIRECTORLEVY GILES M.D. 4.6\S\4.6 Normal <5.0 [facility] [employer] 250 DO Work Phone: Comment on above: PERFORMED BY:[facility] [place], [place] [id number] MEDICAL DIRECTORLEVY GILES M.D. 16\S\16 Normal [facility] [employer] 250 DO Work Phone: 84\S\84 Normal 35-149 [facility] [employer] 250 DO Work Phone: Comment on above: TRIG ATP III CLASSIF ICATION TRIG less than 150 mg/dL Normal TRIG 150-199 mg/dL Borderline high TRIG 200-500 mg/dL High TRIG greater than 500 mg/dL Very high Standard traceable to the Center for Disease Conrtrol and Prevention (CDC) test method. 36\S\36 Normal 29-71 -[facility] marianne 250 DO Work Phone: Comment on above: HDL CHOL ATP-III CLA SSIFICATION Cardiovascular Risk HDL > or equal to 60 mg/dL LOW HDL < 40 mg/dL HIGH No Panel InformationOrdered By: Cipriano Stiles on 07-19-2022 25-Hydroxy Vitamin D Total 8.4 ng/mL 30-100 [facility] Comment on above: VITAMIN D STATUS 25( [place])VITAMIN D RANGE (ng/mL) Deficient <20 Insufficient 20 to <30Sufficient 30 to 100Reference: Vanna MF,Chemo NC, Sergey SIMENTAL, et al. Evaluation,treatment, and prevention of vitamin D deficiency; an Endocrine Society clinical practice guideline. JCEM. 2010; 96(7):1911-30. C-Peptide 1.8 ng/mL 1.1-4.4 [facility] Comment on above: C-Peptide reference interval is for fasting patients.Performed at: [employer] [id number] Director: Pablito Alexander PhD, Phone: [phone] Estimated GFR () 26 mL/Min [facility] Comment on above: GFR estimated refere nce range: According to KDOQI guidelines, <60 ml/min/1.73m2 is sufficient to diagnose a patient with chronic kidney disease. Pharmacy Creatinine Clearance (Chem N/A [facility] Phosphate [Mass/volume] in S gretta or PlasmaOrdered By: Cipriano Stiles on 07-19-2022 Phosphate [Mass/Vol] 5.7 mg/dL 2.5-4.6 [facility] Serum or plasma anion gap de terminationOrdered By: Cipriano Stiles on 07-19-2022 Anion gap [Moles/Vol] 11.6 mmol/L 6.0-15.0 [facility] Serum or plasma calcium farida urement (mass/volume)Ordered By: Cipriano Stiles on 07-19-2022 Calcium [Mass/Vol] 8.3 mg/dL 8.2-10.2 [facility] Serum or plasma chloride trina surement (moles/volume)Ordered By: Cipriano Stiles on 07-19-2022 Chloride [Moles/Vol] 106 mmol/L 95-114 [facility] Serum or plasma glucose farida urement (mass/volume)Ordered By: Cipriano Stiles on 07-19-2022 Glucose [Mass/Vol] 173 mg/dL 70-100 [facility] Comment on above: ADA recommended refe rence rangeRandom Glucose Reference Range is dependent on time and content of last meal. Glucose of more than 200 mg/dL in a nonstressed, ambulatory subject supports the diagnosis of Diabetes Mellitus. Serum or plasma high density lipoprotein (HDL) cholesterol measurementOrdered By: Denilson Gomez on 07-19-2022 Cholesterol in HDL [Mass/Vol] 36 mg/dL 29-71 [facility] Comment on above: HDL CHOL ATP-III CLA SSIFICATION Cardiovascular RiskHDL > or equal to 60 mg/dL LOWHDL < 40 mg/dL HIGH Serum or plasma potassium me asurement (moles/volume)Ordered By: Cipriano Stiles on 07-19-2022 Potassium [Moles/Vol] 4.2 mmol/L 3.5-5.1 [facility] Serum or plasma sodium measu rement (moles/volume)Ordered By: Cipriano Stiles on 07-19-2022 Sodium [Moles/Vol] 137 mmol/L 136-146 [facility] Serum or plasma total carbon dioxide measurement (moles/volume)Ordered By: Cipriano Stiles on 07-19-2022 CO2 [Moles/Vol] 23.6 mmol/L 22.0-30.0 [facility] Serum or plasma total choles terol/high density lipoprotein (HDL) cholesterol mass ratOrdered By: Denilson Gomez on 07-19-2022 Cholesterol.total/Rosalind sterol in HDL [Mass ratio] 4.6 {ratio} <5.0 [facility] Serum or plasma urea nitroge n measurement (mass/volume)Ordered By: Cipriano Stiles on 07-19-2022 Urea nitrogen [Mass/Vol] 50 mg/dL 9- [facility] Triglyceride [Mass/volume] i n Serum or PlasmaOrdered By: Denilson Gomez on 07-19-2022 Triglyceride [Mass/Vol] 84 mg/dL 35-149 [facility] Comment on above: TRIG ATP III [...] 20 mg/L (U) [Mass/Vol] 313.0 mg/dL 0.0-1.8 [facility] Urine microalbumin/creatinin e mass ratioOrdered By: Cipriano Stiles on 07-19-2022 Albumin/Creatinine DL <= 20 mg/L (U) [Mass ratio] 4091.0 mg/g 0.0-30.0 [facility] Comment on above: 30-300 mg/g indicate s an increased risk for diabetic nephropathy. Greater than 300 mg/g is consistent with clinical nephropathy. (Am. J. Kidney Disease 1995, 25:107) Albumin [Mass/volume] in Ser um or PlasmaOrdered By: Zeus Bradley on 07-09-2022 Albumin [Mass/Vol] 2.7 g/dL 3.2-5.5 [facility] Automated erythrocytes count in urine sediment (number/area)Ordered By: Zeus Bradley on 07-09-2022 RBC Auto (Urine sed) [#/Area] 3-4 [HPF] 0-4 [facility] Automated leukocytes count i n urine sediment (number/area)Ordered By: Zeus Bradley on 07-09-2022 WBC Auto (Urine sed) [#/Area] 0-1 [HPF] 0-4 [facility] Basophils Auto (Bld) [#/Vol] Ordered By: Zeus Bradley on 07-09-2022 Basophils (Bld) [#/Vol] 0.1 10*3/uL 0.0-0.2 [facility] Basophils/100 WBC Auto (Bld) Ordered By: Zeus Bradley on 07-09-2022 Basophils/100 WBC (Bld) 1.3 % . [facility] Bilirubin Test strip Ql (U)O rdered By: Zeus Bradley on 07-09-2022 Bilirubin Ql (U) Negative Negative [facility] Color Auto (U)Ordered By: Nas Bradley on 07-09-2022 Color (U) Yellow Yellow [facility] Creatinine and Glomerular fi ltration rate.predicted panel (S/P/Bld)Ordered By: Zeus Bradley on 07-09-2022 Creatinine [Mass/Vol] 3.40 mg/dL 0.64-1.27 [facility] Eosinophils Auto (Bld) [#/Vo l]Ordered By: Zeus Bradley on 07-09-2022 Eosinophils (Bld) [#/Vol] 0.2 10*3/uL 0.0-0.45 [facility] Eosinophils/100 WBC Auto (Bl d)Ordered By: Zeus Bradley on 07-09-2022 Eosinophils/100 WBC (Bld) 1.9 % . [facility] Erythrocyte distribution wid th Auto (RBC) [Ratio]Ordered By: Zeus Bradley on 07-09-2022 Erythrocyte distribution width (RBC) [Ratio] 13.7 % 12.0-14.8 [facility] Estimated glomerular filtrat ion rate (GFR) non- AmericanOrdered By: Zeus Bradley on 07-09-2022 GFR/1.73 sq M.predicted among non-blacks MDRD (S/P/Bld) [Vol rate/Area] 20 mL/Min [facility] Globulin Calc (S) [Mass/Vol] Ordered By: Zeus Bradley on 07-09-2022 Globulin (S) [Mass/Vol] 3.8 g/dL [facility] Glucose Glucometer (BldC) [M ass/Vol]Ordered By: Zeus Bradley on 07-09-2022 Glucose [Mass/Vol] 128 mg/dL [facility] Comment on above: Random Glucose Refer ence Range is dependent on time and content of last meal. Glucose of more than 200 mg/dL in a nonstressed, ambulatory subject supports the diagnosis of Diabetes Mellitus. Hematocrit Auto (Bld) [Volum e fraction]Ordered By: Zeus Bradley on 07-09-2022 Hematocrit (Bld) [Volume fraction] 32.4 % 38.8-50.0 [facility] Hemoglobin [Mass/volume] in BloodOrdered By: Zeus Bradley on 07-09-2022 Hemoglobin (Bld) [Mass/Vol] 11.1 g/dL 13.0-17.0 [facility] Ketones Auto test strip (U) [Mass/Vol]Ordered By: eZus Bradley on 07-09-2022 Ketones (U) [Mass/Vol] Negative Negative [facility] - Chemistry and C hemistry - challengeOrdered By: Zeus Bradley on 07-09-2022 Magnesium [Mass/Vol] 1.9 mg/dL 1.6-2.6 [facility] - Hematology and Cell countsOrdered By: Zeus Bradley on 07-09-2022 Nucleated RBC/100 WBC (Bld) [Ratio] 0.0 % 0-0.5 [facility] - UrinalysisOrder ed By: Zeus Bradley on 07-09-2022 Hyaline casts LM Ql (Urine sed) 0-8 [LPF] 0-8 [facility] Leukocytes [#/volume] in Blo od by Automated countOrdered By: Zeus Bradley on 07-09-2022 WBC (Bld) [#/Vol] 8.2 10*3/uL 4.5-11.0 [facility] Lymphocytes Auto (Bld) [#/Vo l]Ordered By: Zeus Bradley on 07-09-2022 Lymphocytes (Bld) [#/Vol] 1.3 10*3/uL 1.00-4.8 [facility] Lymphocytes/100 WBC Auto (Bl d)Ordered By: Zeus Bradley on 07-09-2022 Lymphocytes/100 WBC (Bld) 16.2 % . [facility] MCH Auto (RBC) [Entitic mass ]Ordered By: Zeus Bradley on 07-09-2022 MCH (RBC) [Entitic mass] 29.3 pg 27.5-35.2 [facility] MCHC Auto (RBC) [Mass/Vol]Or dered By: Zeus Bradley on 07-09-2022 MCHC (RBC) [Mass/Vol] 34.2 g/dL 32.5-35.6 [facility] MCV Auto (RBC) [Entitic vol] Ordered By: Zeus Bradley on 07-09-2022 MCV (RBC) [Entitic vol] 85.7 fL 83.5-101 [facility] Monocytes Auto (Bld) [#/Vol] Ordered By: Zeus Bradley on 07-09-2022 Monocytes (Bld) [#/Vol] 0.4 10*3/uL 0.0-0.8 [facility] Monocytes/100 WBC Auto (Bld) Ordered By: Zeus Bradley on 07-09-2022 Monocytes/100 WBC (Bld) 4.4 % . [facility] Neutrophils Auto (Bld) [#/Vo l]Ordered By: Zeus Bradley on 07-09-2022 Neutrophils (Bld) [#/Vol] 6.2 10*3/uL 1.8-7.7 [facility] Neutrophils/100 WBC Auto (Bl d)Ordered By: Zeus Bradley on 07-09-2022 Neutrophils/100 WBC (Bld) 76.2 % . [facility] Nitrite Test strip Ql (U)Ord ered By: Zeus Bradley on 07-09-2022 Nitrite Ql (U) Negative Negative [facility] No Panel InformationOrdered By: Zeus Bradley on 07-09-2022 Bedside Glucose Comment Glu2: cleaned meter [facility] Estimated GFR () 25 mL/Min [facility] Comment on above: GFR estimated refere nce range: According to KDOQI guidelines, <60 ml/min/1.73m2 is sufficient to diagnose a patient with chronic kidney disease. Pharmacy Creatinine Clearance (Chem 31.22 [facility] Platelet mean volume Auto (B ld) [Entitic vol]Ordered By: Zeus Bradley on 07-09-2022 Platelet mean volume (Bld) [Entitic vol] 8.0 fL 6.6-10.1 [facility] Platelets Auto (Bld) [#/Vol] Ordered By: Zeus Bradley on 07-09-2022 Platelets (Bld) [#/Vol] 228 10*3/uL 150-450 [facility] Protein Auto test strip (U) [Mass/Vol]Ordered By: Zeus Bradley on 07-09-2022 Protein (U) [Mass/Vol] mg/dL Negative [facility] Protein [Mass/volume] in Ser um or PlasmaOrdered By: Zeus Bradley on 07-09-2022 Protein [Mass/Vol] 6.5 g/dL 6.1-7.9 [facility] RBC Auto (Bld) [#/Vol]Ordere d By: Zeus Bradley on 07-09-2022 RBC (Bld) [#/Vol] 3.78 10*6/uL 3.90-5.60 [facility] Serum or plasma alanine matthews otransferase measurement without P-5'-P (enzymatic activiOrdered By: Zeus Bradley on 07-09-2022 ALT No additional P-5'-P [Catalytic activity/Vol] 17 U/L 10-60 [facility] Serum or plasma albumin/glob ulin mass ratioOrdered By: Zeus Bradley on 07-09-2022 Albumin/Globulin [Mass ratio] 0.7 {ratio} [facility] Serum or plasma alkaline harriett sphatase measurement (enzymatic activity/volume)Ordered By: Zues Bradley on 07-09-2022 ALP [Catalytic activity/Vol] 79 U/L 32-92 [facility] Serum or plasma anion gap de terminationOrdered By: Zeus Bradley on 07-09-2022 Anion gap [Moles/Vol] 7.1 mmol/L 6.0-15.0 [facility] Serum or plasma aspartate am inotransferase measurement (enzymatic activity/volume)Ordered By: Zeus Bradley on 07-09-2022 AST [Catalytic activity/Vol] 18 U/L 10-42 [facility] Serum or plasma calcium farida urement (mass/volume)Ordered By: Zeus Bradley on 07-09-2022 Calcium [Mass/Vol] 8.6 mg/dL 8.2-10.2 [facility] Serum or plasma chloride trina surement (moles/volume)Ordered By: Zeus Bradley on 07-09-2022 Chloride [Moles/Vol] 105 mmol/L 95-114 [facility] Serum or plasma glucose farida urement (mass/volume)Ordered By: Zeus Bradley on 07-09-2022 Glucose [Mass/Vol] 80 mg/dL 70-100 [facility] Comment on above: ADA recommended refe rence rangeRandom Glucose Reference Range is dependent on time and content of last meal. Glucose of more than 200 mg/dL in a nonstressed, ambulatory subject supports the diagnosis of Diabetes Mellitus. Serum or plasma potassium me asurement (moles/volume)Ordered By: Zeus Bradley on 07-09-2022 Potassium [Moles/Vol] 4.0 mmol/L 3.5-5.1 [facility] Serum or plasma sodium measu rement (moles/volume)Ordered By: Zeus Bradley on 07-09-2022 Sodium [Moles/Vol] 133 mmol/L 136-146 [facility] Serum or plasma total biliru bin measurement (mass/volume)Ordered By: Zeus Bradley on 07-09-2022 Bilirubin [Mass/Vol] 0.5 mg/dL 0.3-1.2 [facility] Serum or plasma total carbon dioxide measurement (moles/volume)Ordered By: Zeus Bradley on 07-09-2022 CO2 [Moles/Vol] 24.9 mmol/L 22.0-30.0 [facility] Serum or plasma urea nitroge n measurement (mass/volume)Ordered By: Zeus Bradley on 07-09-2022 Urea nitrogen [Mass/Vol] 36 mg/dL 9-23 [facility] Specific gravity Auto test s trip (U) [Rel density]Ordered By: Zeus Bradley on 07-09-2022 Specific gravity (U) [Rel density] 1.009 1.001-1.030 [facility] Squamous epithelial cells de tection in urine sediment by light microscopyOrdered By: Zeus Bradley on 07-09-2022 Epithelial cells.squamous LM Ql (Urine sed) 0-1 [HPF] 0-2 [facility] Urine bacteria detection by automated methodOrdered By: Zeus Bradley on 07-09-2022 Bacteria Auto Ql (U) None seen None Seen [facility] Urine clarity by refractomet ry automatedOrdered By: Zeus Bradley on 07-09-2022 Clarity Refractometry automated (U) Clear Clear [facility] Urine glucose measurement by automated test strip (mass/volume)Ordered By: Zeus Bradley on 07-09-2022 Glucose Auto test strip (U) [Mass/Vol] 250 mg/dL Normal [facility] Urine hemoglobin detection b y automated test stripOrdered By: Zeus Bradley on 07-09-2022 Hemoglobin Auto test strip Ql (U) 1+ Negative [facility] Urine leukocyte esterase det ection by automated test stripOrdered By: Zeus Bradley on 07-09-2022 Leukocyte esterase Auto test strip Ql (U) Negative Negative [facility] Urobilinogen Auto test strip (U) [Mass/Vol]Ordered By: Zeus Bradley on 07-09-2022 Urobilinogen (U) [Mass/Vol] Normal mg/dL Normal [facility] pH Auto test strip (U)Ordere d By: Zeus Bradley on 07-09-2022 pH (U) 5.5 [pH] 5.0-9.0 [facility] Office Visit (Cardiology)on 07-05-2022 Follow-up visit [...] 21.9 in adult (V85.1) (Z68.21) History of MD (myocardial infarction) (412) (I25.2) Chronic kidney disease [...] we can help. You may also call [phone] for free resources and assistance.; Status:Complete - [...] is followed by nephrology. 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 His left ventricular function at that time was 40 to 45%. He has underlying type 1 diabetes, progressive/chronic kidney disease as noted, ongoing tobacco use, class II angina. Is [place] [employer] is class IIc and remains [...] Recorded: 05Jul2022 11:35AM Heart Rate72, R Radial [id number], LUE, Sitting [id number], LUE, Sitting Height6 ft 1 in [place]060 lb BMI Iqyiaquxiy47.11 kg/m2 BSA Calculated1.96 Tobacco Useb) No Falls Screening (Age 18+)c) Not medically indicated Physical Exam Constitutional: alert and in no acute distress. Neck: neck is supple, symmetric, trachea midline, no masses and no thyromegaly . Pulmonary: no increased work (more content not included)... Normal SADAR 3D Tobacco Screening.on 022 Fall risk assessment c) Not medically indicated [facility] [employer] DO Work Phone: Tobacco use status [facility] b) No M [facility] [employer] DO Work Phone: Automated erythrocytes count in urine sediment (number/area)Ordered By: Angel Mejía on 06-29-2022 RBC Auto (Urine sed) [#/Area] 5-9 [HPF] 0-4 [facility] Automated leukocytes count i n urine sediment (number/area)Ordered By: Angel Georger on 06-29-2022 WBC Auto (Urine sed) [#/Area] 1-2 [HPF] 0-4 [facility] Bilirubin Test strip Ql (U)O rdered By: Angel Mejía on 06-29-2022 Bilirubin Ql (U) Negative Negative [facility] Body fluid albumin measureme nt (mass/volume)Ordered By: Angel Mejía on 06-29-2022 Albumin (Body fld) [Mass/Vol] 2.8 g/dL 3.2-5.[address] [facility] [address] biopsyOrdered By: Varsha haganir on 06-29-2022 Transferrin [Mass/Vol] 166 mg/dL 180-[facility] Auto (U)Ordered By: Ab yusra Mejía on 06-29-2022 Color (U) Yellow Yellow [facility] Creatinine [Mass/volume] in UrineOrdered By: Angel Mejía on 06-29-2022 Creatinine (U) [Mass/Vol] 39.6 mg/dL [facility] Comment on above: No reference range e stablished Creatinine and Glomerular fi ltration rate.predicted panel (S/P/Bld)Ordered By: Angel Mejía on 06-29-2022 Creatinine [Mass/Vol] 3.30 mg/dL 0.64-1.27 [facility] Erythrocyte distribution wid th Auto (RBC) [Ratio]Ordered By: Angel Mejía on 06-29-2022 Erythrocyte distribution width (RBC) [Ratio] 13.6 % 12.0-14.8 [facility] Estimated glomerular filtrat ion rate (GFR) non- AmericanOrdered By: Angel Mejía on 06-29-2022 GFR/1.73 sq M.predicted among non-blacks MDRD (S/P/Bld) [Vol rate/Area] 21 mL/Min [facility] Ferritin [Mass/volume] in Se rum or PlasmaOrdered By: Angel Mejía on 06-29-2022 Ferritin [Mass/Vol] 123.9 ng/mL 23.9-336.2 [facility] Hematocrit Auto (Bld) [Volum e fraction]Ordered By: Angel Mejía on 06-29-2022 Hematocrit (Bld) [Volume fraction] 33.2 % 38.8-50.0 [facility] Hemoglobin [Mass/volume] in BloodOrdered By: Angel Mejía on 06-29-2022 Hemoglobin (Bld) [Mass/Vol] 11.4 g/dL 13.0-17.0 [facility] Iron [Mass/volume] in Serum or PlasmaOrdered By: Angel Mejía on 06-29-2022 Iron [Mass/Vol] 63 ug/dL 40-160 [facility] Iron binding capacity [Mass/ volume] in Serum or PlasmaOrdered By: Angel Mejía on 06-29-2022 Iron binding capacity [Mass/Vol] 232 ug/dL 255-450 [facility] Iron saturation [Mass Fracti on] in Serum or PlasmaOrdered By: Angel Mejía on 06-29-2022 Iron saturation [Mass fraction] 27.0 % 20-50 [facility] Ketones Auto test strip (U) [Mass/Vol]Ordered By: Angel Mejía on 06-29-2022 Ketones (U) [Mass/Vol] Negative Negative [facility] - Chemistry and C hemistry - challengeOrdered By: Angel Mejía on 06-29-2022 Magnesium [Mass/Vol] 1.9 mg/dL 1.6-2.6 [facility] - UrinalysisOrder ed By: Angel Mejía on 06-29-2022 Hyaline casts LM Ql (Urine sed) 0-8 [LPF] 0-8 [facility] MCH Auto (RBC) [Entitic mass ]Ordered By: Angel Mejía on 06-29-2022 MCH (RBC) [Entitic mass] 29.2 pg 27.5-35.2 [facility] MCHC Auto (RBC) [Mass/Vol]Or dered By: Angel Mejía on 06-29-2022 MCHC (RBC) [Mass/Vol] 34.3 g/dL 32.5-35.6 [facility] MCV Auto (RBC) [Entitic vol] Ordered By: Angel Mejía on 06-29-2022 MCV (RBC) [Entitic vol] 85.2 fL 83.5-101 [facility] Nitrite Test strip Ql (U)Ord ered By: Angel Mejía on 06-29-2022 Nitrite Ql (U) Negative Negative [facility] No Panel InformationOrdered By: Angel Mejía on 06-29-2022 Estimated GFR () 26 mL/Min [facility] Comment on above: GFR estimated refere nce range: According to KDOQI guidelines, <60 ml/min/1.73m2 is sufficient to diagnose a patient with chronic kidney disease. Pharmacy Creatinine Clearance (Chem N/A [facility] Phosphate [Mass/volume] in S gretta or PlasmaOrdered By: Angel Mejía on 06-29-2022 Phosphate [Mass/Vol] 5.0 mg/dL 2.5-4.6 [facility] Platelet mean volume Auto (B ld) [Entitic vol]Ordered By: Angel Mejía on 06-29-2022 Platelet mean volume (Bld) [Entitic vol] 8.6 fL 6.6-10.1 [facility] Platelets Auto (Bld) [#/Vol] Ordered By: Angel Mejía on 06-29-2022 Platelets (Bld) [#/Vol] 242 10*3/uL 150-450 [facility] Protein Auto test strip (U) [Mass/Vol]Ordered By: Angel Mejía on 06-29-2022 Protein (U) [Mass/Vol] 300 mg/dL Negative [facility] Protein [Mass/volume] in Uri neOrdered By: Angel Mejía on 06-29-2022 Protein (U) [Mass/Vol] 315 mg/dL 0-9 [facility] RBC Auto (Bld) [#/Vol]Ordere d By: Angel Mejía on 06-29-2022 RBC (Bld) [#/Vol] 3.90 10*6/uL 3.90-5.60 [facility] Serum or plasma anion gap de terminationOrdered By: Angel Mejía on 06-29-2022 Anion gap [Moles/Vol] 13.4 mmol/L 6.0-15.0 [facility] Serum or plasma calcium farida urement (mass/volume)Ordered By: Angel Mejía on 06-29-2022 Calcium [Mass/Vol] 8.9 mg/dL 8.2-10.2 [facility] Serum or plasma chloride trina surement (moles/volume)Ordered By: Angel Mejía on 06-29-2022 Chloride [Moles/Vol] 101 mmol/L 95-114 [facility] Serum or plasma glucose farida urement (mass/volume)Ordered By: Angel Mejía on 06-29-2022 Glucose [Mass/Vol] 70 mg/dL 70-100 [facility] Comment on above: ADA recommended refe rence rangeRandom Glucose Reference Range is dependent on time and content of last meal. Glucose of more than 200 mg/dL in a nonstressed, ambulatory subject supports the diagnosis of Diabetes Mellitus. Serum or plasma intact parat hyroid hormone measurement (mass/volume)Ordered By: Angel Mejía on 06-29-2022 Parathyrin.intact [Mass/Vol] 244.2 pg/mL 12-88 [facility] Serum or plasma potassium me asurement (moles/volume)Ordered By: Angel Mejía on 06-29-2022 Potassium [Moles/Vol] 4.7 mmol/L 3.5-5.1 [facility] Serum or plasma sodium measu rement (moles/volume)Ordered By: Angel Mejía on 06-29-2022 Sodium [Moles/Vol] 133 mmol/L 136-146 [facility] Serum or plasma total carbon dioxide measurement (moles/volume)Ordered By: Angel Mejía on 06-29-2022 CO2 [Moles/Vol] 23.3 mmol/L 22.0-30.0 [facility] Serum or plasma urea nitroge n measurement (mass/volume)Ordered By: Angel Mejía on 06-29-2022 Urea nitrogen [Mass/Vol] 35 mg/dL 9-23 [facility] Serum or plasma uric acid me asurement (mass/volume)Ordered By: Angel Mejía on 06-29-2022 Urate [Mass/Vol] 5.7 mg/dL 2.6-7.2 [facility] Specific gravity Auto test s trip (U) [Rel density]Ordered By: Angel Mejía on 06-29-2022 Specific gravity (U) [Rel density] 1.007 1.001-1.030 [facility] Squamous epithelial cells de tection in urine sediment by light microscopyOrdered By: Angel Mejía on 06-29-2022 Epithelial cells.squamous LM Ql (Urine sed) 0-1 [HPF] 0-2 [facility] Urine bacteria detection by automated methodOrdered By: Angel Mejía on 06-29-2022 Bacteria Auto Ql (U) None seen None Seen [facility] Urine clarity by refractomet ry automatedOrdered By: Angel Mejía on 06-29-2022 Clarity Refractometry automated (U) Clear Clear [facility] Urine glucose measurement by automated test strip (mass/volume)Ordered By: Angel Mejía on 06-29-2022 Glucose Auto test strip (U) [Mass/Vol] Normal mg/dL Normal [facility] Urine hemoglobin detection b y automated test stripOrdered By: Angel Mejía on 06-29-2022 Hemoglobin Auto test strip Ql (U) 1+ Negative [facility] Urine leukocyte esterase det ection by automated test stripOrdered By: Angel Mejía on 06-29-2022 Leukocyte esterase Auto test strip Ql (U) Negative Negative [facility] Urine protein/creatinine rat ioOrdered By: Angel Mejía on 06-29-2022 Protein/Creatinine (U) [Ratio] 7955 mg/g{Cre} 0-200 [facility] Urobilinogen Auto test strip (U) [Mass/Vol]Ordered By: Angel Mejía on 06-29-2022 Urobilinogen (U) [Mass/Vol] Normal mg/dL Normal [facility] WBC Auto (Bld) [#/Vol]Ordere d By: Angel Mejía on 06-29-2022 WBC (Bld) [#/Vol] 7.3 10*3/uL 4.1-10.5 [facility] pH Auto test strip (U)Ordere d By: Angel Mejía on 06-29-2022 pH (U) 6.0 [pH] 5.0-9.0 [facility] Activated partial thrombopla stin time (aPTT) in platelet poor plasma by coagulation aOrdered By: Yobani Hansen on 06-13-2022 aPTT Coag (PPP) [Time] 42.5 s 25.1-36.5 [facility] Albumin [Mass/volume] in Ser um or PlasmaOrdered By: Yobani Hansen on 06-13-2022 Albumin [Mass/Vol] 2.3 g/dL 3.2-5.5 [facility] Automated erythrocytes count in urine sediment (number/area)Ordered By: Yobani Hansen on 06-13-2022 RBC Auto (Urine sed) [#/Area] 10-19 [HPF] 0-4 [facility] Automated leukocytes count i n urine sediment (number/area)Ordered By: Yobani Hansen on 06-13-2022 WBC Auto (Urine sed) [#/Area] 3-4 [HPF] 0-4 [facility] Basophils Auto (Bld) [#/Vol] Ordered By: Yobani Hansen on 06-13-2022 Basophils (Bld) [#/Vol] 0.1 10*3/uL 0.0-0.2 [facility] Basophils/100 WBC Auto (Bld) Ordered By: Yobani Hansen on 06-13-2022 Basophils/100 WBC (Bld) 1.3 % . [facility] Bilirubin Test strip Ql (U)O rdered By: Yobani Hansen on 06-13-2022 Bilirubin Ql (U) Negative Negative [facility] COVID CepheidOrdered By: Elina Hansen on 06-13-2022 SARS-CoV-2 (COVID-19) RNA HAO+probe Ql (Unsp spec) [facility] SARS-CoV-2 (COVID-19) Ab IA Ql Negative Negative [facility] Comment on above: This is a duplicate [employer] Xpert Xpress CoV-2/Flu/RSV Plus RNA by RT-PCR result to be used for statistical tracking purpose only. SARS-CoV-2 (COVID-19) RNA HAO+probe Ql (Unsp spec) [facility] Color Auto (U)Ordered By: Leandro red Jade on 06-13-2022 Color (U) Yellow Yellow [facility] Creatinine and Glomerular fi ltration rate.predicted panel (S/P/Bld)Ordered By: Yobani Hansen on 06-13-2022 Creatinine [Mass/Vol] 3.47 mg/dL 0.64-1.27 [facility] Eosinophils Auto (Bld) [#/Vo l]Ordered By: Yobani Hansen on 06-13-2022 Eosinophils (Bld) [#/Vol] 0.1 10*3/uL 0.0-0.45 [facility] Eosinophils/100 WBC Auto (Bl d)Ordered By: Yobani Hansen on 06-13-2022 Eosinophils/100 WBC (Bld) 0.8 % . [facility] Erythrocyte distribution wid th Auto (RBC) [Ratio]Ordered By: Yobani Hansen on 06-13-2022 Erythrocyte distribution width (RBC) [Ratio] 13.0 % 12.0-14.8 [facility] Estimated glomerular filtrat ion rate (GFR) non- AmericanOrdered By: Yobani Hansen on 06-13-2022 GFR/1.73 sq M.predicted among non-blacks MDRD (S/P/Bld) [Vol rate/Area] 20 mL/Min [facility] Globulin Calc (S) [Mass/Vol] Ordered By: Yobani Hansen on 06-13-2022 Globulin (S) [Mass/Vol] 3.6 g/dL [facility] Glucose Glucometer (BldC) [M ass/Vol]Ordered By: Yobani Hansen on 06-13-2022 Glucose [Mass/Vol] 161 mg/dL [facility] Comment on above: Random Glucose Refer ence Range is dependent on time and content of last meal. Glucose of more than 200 mg/dL in a nonstressed, ambulatory subject supports the diagnosis of Diabetes Mellitus. Hematocrit Auto (Bld) [Volum e fraction]Ordered By: Yobani Hansen on 06-13-2022 Hematocrit (Bld) [Volume fraction] 34.0 % 38.8-50.0 [facility] Hemoglobin [Mass/volume] in BloodOrdered By: Yobani Hansen on 06-13-2022 Hemoglobin (Bld) [Mass/Vol] 11.3 g/dL 13.0-17.0 [facility] Ketones Auto test strip (U) [Mass/Vol]Ordered By: Yobani Hansen on 06-13-2022 Ketones (U) [Mass/Vol] Negative [facility] and C hemistry - challengeOrdered By: Yobani Hansen on 06-13-2022 Lipase [Catalytic activity/Vol] 20.0 U/L 22-51 [facility] Natriuretic peptide B (Bld) [Mass/Vol] 733.0 pg/mL 5-100 [facility] Laboratory - CoagulationOrde red By: Yobani Hansen on 06-13-2022 PT Coag (PPP) [Time] 11.7 s 9.0-12.9 [facility] Laboratory - Hematology and Cell countsOrdered By: Yobani Hansen on 06-13-2022 Nucleated RBC/100 WBC (Bld) [Ratio] 0.1 % 0-0.5 [facility] Laboratory - UrinalysisOrder ed By: Yobani Hansen on 06-13-2022 Hyaline casts LM Ql (Urine sed) 0-8 [LPF] 0-8 [facility] Leukocytes [#/volume] in Blo od by Automated countOrdered By: Yobani Hansen on 06-13-2022 WBC (Bld) [#/Vol] 9.0 10*3/uL 4.5-11.0 [facility] Lymphocytes Auto (Bld) [#/Vo l]Ordered By: Yobani Hansen on 06-13-2022 Lymphocytes (Bld) [#/Vol] 1.1 10*3/uL 1.00-4.8 [facility] Lymphocytes/100 WBC Auto (Bl d)Ordered By: Yobani Hansen on 06-13-2022 Lymphocytes/100 WBC (Bld) 12.6 % . [facility] MCH Auto (RBC) [Entitic mass ]Ordered By: Yobani Hansen on 06-13-2022 MCH (RBC) [Entitic mass] 28.6 pg 27.5-35.2 [facility] MCHC Auto (RBC) [Mass/Vol]Or dered By: Yobani Hansen on 06-13-2022 MCHC (RBC) [Mass/Vol] 33.3 g/dL 32.5-35.6 [facility] MCV Auto (RBC) [Entitic vol] Ordered By: Yobani Hansen on 06-13-2022 MCV (RBC) [Entitic vol] 86.0 fL 83.5-101 [facility] Monocytes Auto (Bld) [#/Vol] Ordered By: Yobani Hansen on 06-13-2022 Monocytes (Bld) [#/Vol] 0.4 10*3/uL 0.0-0.8 [facility] Monocytes/100 WBC Auto (Bld) Ordered By: Yobani Hansen on 06-13-2022 Monocytes/100 WBC (Bld) 4.3 % . [facility] Neutrophils Auto (Bld) [#/Vo l]Ordered By: Yobani Hansen on 06-13-2022 Neutrophils (Bld) [#/Vol] 7.3 10*3/uL 1.8-7.7 [facility] Neutrophils/100 WBC Auto (Bl d)Ordered By: Yobani Hansen on 06-13-2022 Neutrophils/100 WBC (Bld) 81.0 % . [facility] Nitrite Test strip Ql (U)Ord ered By: Yobani Hansen on 06-13-2022 Nitrite Ql (U) Negative Negative [facility] No Panel InformationOrdered By: Yobani Hansen on 06-13-2022 Estimated GFR () 24 mL/Min [facility] Comment on above: GFR estimated refere nce range: According to KDOQI guidelines, <60 ml/min/1.73m2 is sufficient to diagnose a patient with chronic kidney disease. Pharmacy Creatinine Clearance (Chem 29.92 [facility] Platelet mean volume Auto (B ld) [Entitic vol]Ordered By: Yobani Hansen on 06-13-2022 Platelet mean volume (Bld) [Entitic vol] 8.1 fL 6.6-10.1 [facility] Platelet poor plasma interna tional normalized ratio (INR) by coagulation assay (relatOrdered By: Yobani Hansen on 06-13-2022 INR Coag (PPP) [Relative time] 1.0 {INR} [facility] Comment on above: INR Therapeutic Rang [...] 06-13-2022 Platelets (Bld) [#/Vol] 237 10*3/uL 150-450 [facility] Protein Auto test strip (U) [Mass/Vol]Ordered By: Yobani Hansen on 06-13-2022 Protein (U) [Mass/Vol] 300 mg/dL Negative [facility] Protein [Mass/volume] in Ser um or PlasmaOrdered By: Yobani Hansen on 06-13-2022 Protein [Mass/Vol] 5.9 g/dL 6.1-7.9 [facility] RBC Auto (Bld) [#/Vol]Ordere d By: Yobani Hansen on 06-13-2022 RBC (Bld) [#/Vol] 3.95 10*6/uL 3.90-5.60 [facility] Serum or plasma alanine matthews otransferase measurement without P-5'-P (enzymatic activiOrdered By: Yobani Hansen on 06-13-2022 ALT No additional P-5'-P [Catalytic activity/Vol] 17 U/L 10-60 [facility] Serum or plasma albumin/glob ulin mass ratioOrdered By: Yobani Hansen on 06-13-2022 Albumin/Globulin [Mass ratio] 0.6 {ratio} [facility] Serum or plasma alkaline harriett sphatase measurement (enzymatic activity/volume)Ordered By: Yobani Hansen on 06-13-2022 ALP [Catalytic activity/Vol] 76 U/L 32-92 [facility] Serum or plasma anion gap de terminationOrdered By: Yobani Hansen on 06-13-2022 Anion gap [Moles/Vol] 13.3 mmol/L 6.0-15.0 [facility] Serum or plasma aspartate am inotransferase measurement (enzymatic activity/volume)Ordered By: Yobani Hansen on 06-13-2022 AST [Catalytic activity/Vol] 20 U/L 10-42 [facility] Serum or plasma calcium farida urement (mass/volume)Ordered By: Yobani Hansen on 06-13-2022 Calcium [Mass/Vol] 8.8 mg/dL 8.2-10.2 [facility] Serum or plasma chloride trina surement (moles/volume)Ordered By: Yobani Hansen on 06-13-2022 Chloride [Moles/Vol] 105 mmol/L 95-114 [facility] Serum or plasma glucose farida urement (mass/volume)Ordered By: Yobani Hansen on 06-13-2022 Glucose [Mass/Vol] 163 mg/dL 70-100 [facility] Comment on above: ADA recommended refe rence rangeRandom Glucose Reference Range is dependent on time and content of last meal. Glucose of more than 200 mg/dL in a nonstressed, ambulatory subject supports the diagnosis of Diabetes Mellitus. Serum or plasma potassium me asurement (moles/volume)Ordered By: Yobani Hansen on 06-13-2022 Potassium [Moles/Vol] 4.7 mmol/L 3.5-5.1 [facility] Serum or plasma sodium measu rement (moles/volume)Ordered By: Yobani Hansen on 06-13-2022 Sodium [Moles/Vol] 138 mmol/L 136-146 [facility] Serum or plasma total biliru bin measurement (mass/volume)Ordered By: Yobani Hansen on 06-13-2022 Bilirubin [Mass/Vol] 0.4 mg/dL 0.3-1.2 [facility] Serum or plasma total carbon dioxide measurement (moles/volume)Ordered By: Yobani Hansen on 06-13-2022 CO2 [Moles/Vol] 24.4 mmol/L 22.0-30.0 [facility] Serum or plasma urea nitroge n measurement (mass/volume)Ordered By: Yobani Hansen on 06-13-2022 Urea nitrogen [Mass/Vol] 47 mg/dL 9-23 [facility] Specific gravity Auto test s trip (U) [Rel density]Ordered By: Yobani Hansen on 06-13-2022 Specific gravity (U) [Rel density] 1.011 1.001-1.030 [facility] Squamous epithelial cells de tection in urine sediment by light microscopyOrdered By: Yobani Hansen on 06-13-2022 Epithelial cells.squamous LM Ql (Urine sed) 0-1 [HPF] 0-2 [facility] Troponin I.cardiac [Mass/vol ume] in Serum or Plasma by High sensitivity methodOrdered By: Yobani Hansen on 06-13-2022 Troponin I.cardiac High sensitivity method [Mass/Vol] 49 pg/mL 0-20 [facility] Urine bacteria detection by automated methodOrdered By: Yobani Hansen on 06-13-2022 Bacteria Auto Ql (U) None seen None Seen [facility] Urine clarity by refractomet ry automatedOrdered By: Yobani Hansen on 06-13-2022 Clarity Refractometry automated (U) Clear Clear [facility] Urine glucose measurement by automated test strip (mass/volume)Ordered By: Yobani Hansen on 06-13-2022 Glucose Auto test strip (U) [Mass/Vol] 250 mg/dL Normal [facility] Urine hemoglobin detection b y automated test stripOrdered By: Yobani Hansen on 06-13-2022 Hemoglobin Auto test strip Ql (U) 2+ Negative [facility] Urine leukocyte esterase det ection by automated test stripOrdered By: Yobani Hansen on 06-13-2022 Leukocyte esterase Auto test strip Ql (U) Negative Negative [facility] Urobilinogen Auto test strip (U) [Mass/Vol]Ordered By: Yobani Hansen on 06-13-2022 Urobilinogen (U) [Mass/Vol] Normal mg/dL Normal [facility] pH Auto test strip (U)Ordere d By: Yobani Hansen on 06-13-2022 pH (U) 6.5 [pH] 5.0-9.0 [facility] Activated partial thrombopla stin time (aPTT) in platelet poor plasma by coagulation aOrdered By: Govind Anderson on 06-03-2022 aPTT Coag (PPP) [Time] 41.0 s 25.1-36.5 [facility] Albumin [Mass/volume] in Ser um or PlasmaOrdered By: Govind Anderson on 06-03-2022 Albumin [Mass/Vol] 2.0 g/dL 3.2-5.5 [facility] Basophils Auto (Bld) [#/Vol] Ordered By: Govind Anderson on 06-03-2022 Basophils (Bld) [#/Vol] 0.1 10*3/uL 0.0-0.2 [facility] Basophils/100 WBC Auto (Bld) Ordered By: Govind Anderson on 06-03-2022 Basophils/100 WBC (Bld) 1.2 % . [facility] Creatine kinase [Enzymatic a ctivity/volume] in Serum or PlasmaOrdered By: Govind Anderson on 06-03-2022 CK [Catalytic activity/Vol] 246 U/L 22-269 [facility] Creatinine and Glomerular fi ltration rate.predicted panel (S/P/Bld)Ordered By: Govind Anderson on 06-03-2022 Creatinine [Mass/Vol] 3.27 mg/dL 0.64-1.27 [facility] Eosinophils Auto (Bld) [#/Vo l]Ordered By: Govind Anderson on 06-03-2022 Eosinophils (Bld) [#/Vol] 0.1 10*3/uL 0.0-0.45 [facility] Eosinophils/100 WBC Auto (Bl d)Ordered By: Govind Anderson on 06-03-2022 Eosinophils/100 WBC (Bld) 1.9 % . [facility] Erythrocyte distribution wid th Auto (RBC) [Ratio]Ordered By: Govind Anderson on 06-03-2022 Erythrocyte distribution width (RBC) [Ratio] 12.4 % 12.0-14.8 [facility] Estimated glomerular filtrat ion rate (GFR) non- AmericanOrdered By: Govind Anderson on 06-03-2022 GFR/1.73 sq M.predicted among non-blacks MDRD (S/P/Bld) [Vol rate/Area] 21 mL/Min [facility] Globulin Calc (S) [Mass/Vol] Ordered By: Govind Anderson on 06-03-2022 Globulin (S) [Mass/Vol] 3.2 g/dL [facility] Hematocrit Auto (Bld) [Volum e fraction]Ordered By: Govind Anderson on 06-03-2022 Hematocrit (Bld) [Volume fraction] 28.6 % 38.8-50.0 [facility] Hemoglobin [Mass/volume] in BloodOrdered By: Govind Anderson on 06-03-2022 Hemoglobin (Bld) [Mass/Vol] 9.9 g/dL 13.0-17.0 [facility] Laboratory - Chemistry and C hemistry - challengeOrdered By: Govind Anderson on 06-03-2022 Natriuretic peptide B (Bld) [Mass/Vol] 569.0 pg/mL 5-100 [facility] - CoagulationOrde red By: Govind Anderson on 06-03-2022 PT Coag (PPP) [Time] 12.6 s 9.0-12.9 [facility] Laboratory - Hematology and Cell countsOrdered By: Govind Anderson on 06-03-2022 Nucleated RBC/100 WBC (Bld) [Ratio] 0.1 % 0-0.5 [facility] Leukocytes [#/volume] in Blo od by Automated countOrdered By: Govind Anderson on 06-03-2022 WBC (Bld) [#/Vol] 6.8 10*3/uL 4.5-11.0 [facility] Lymphocytes Auto (Bld) [#/Vo l]Ordered By: Govind Anderson on 06-03-2022 Lymphocytes (Bld) [#/Vol] 1.4 10*3/uL 1.00-4.8 [facility] Lymphocytes/100 WBC Auto (Bl d)Ordered By: Govind Anderson on 06-03-2022 Lymphocytes/100 WBC (Bld) 21.1 % . [facility] MCH Auto (RBC) [Entitic mass ]Ordered By: Govind Anderson on 06-03-2022 MCH (RBC) [Entitic mass] 29.3 pg 27.5-35.2 [facility] MCHC Auto (RBC) [Mass/Vol]Or dered By: Govind Anderson on 06-03-2022 MCHC (RBC) [Mass/Vol] 34.7 g/dL 32.5-35.6 [facility] MCV Auto (RBC) [Entitic vol] Ordered By: Govind Anderson on 06-03-2022 MCV (RBC) [Entitic vol] 84.4 fL 83.5-101 [facility] Monocytes Auto (Bld) [#/Vol] Ordered By: Govind Anderson on 06-03-2022 Monocytes (Bld) [#/Vol] 0.3 10*3/uL 0.0-0.8 [facility] Monocytes/100 WBC Auto (Bld) Ordered By: Govind Anderson on 06-03-2022 Monocytes/100 WBC (Bld) 5.1 % . [facility] Neutrophils Auto (Bld) [#/Vo l]Ordered By: Govind Anderson on 06-03-2022 Neutrophils (Bld) [#/Vol] 4.8 10*3/uL 1.8-7.7 [facility] Neutrophils/100 WBC Auto (Bl d)Ordered By: Govind Anderson on 06-03-2022 Neutrophils/100 WBC (Bld) 70.7 % . [facility] No Panel InformationOrdered By: Govind Anderson on 06-03-2022 Estimated GFR () 26 mL/Min [facility] Comment on above: GFR estimated refere nce range: According to KDOQI guidelines, <60 ml/min/1.73m2 is sufficient to diagnose a patient with chronic kidney disease. Pharmacy Creatinine Clearance (Chem 33.73 [facility] Platelet mean volume Auto (B ld) [Entitic vol]Ordered By: Govind Anderson on 06-03-2022 Platelet mean volume (Bld) [Entitic vol] 8.1 fL 6.6-10.1 [facility] Platelet poor plasma interna tional normalized ratio (INR) by coagulation assay (relatOrdered By: Govind Anderson on 06-03-2022 INR Coag (PPP) [Relative time] 1.1 {INR} [facility] Comment on above: INR Therapeutic Rang [...] 06-03-2022 Platelets (Bld) [#/Vol] 232 10*3/uL 150-450 [facility] Protein [Mass/volume] in Ser um or PlasmaOrdered By: Govind Anderson on 06-03-2022 Protein [Mass/Vol] 5.2 g/dL 6.1-7.9 [facility] RBC Auto (Bld) [#/Vol]Ordere d By: Govind Anderson on 06-03-2022 RBC (Bld) [#/Vol] 3.39 10*6/uL 3.90-5.60 [facility] Serum or plasma alanine matthews otransferase measurement without P-5'-P (enzymatic activiOrdered By: Govind Anderson on 06-03-2022 ALT No additional P-5'-P [Catalytic activity/Vol] 13 U/L [facility] Serum or plasma albumin/glob ulin mass ratioOrdered By: Govind Anderson on 06-03-2022 Albumin/Globulin [Mass ratio] 0.6 {ratio} [facility] Serum or plasma alkaline harriett sphatase measurement (enzymatic activity/volume)Ordered By: Govind Anderson on 06-03-2022 ALP [Catalytic activity/Vol] 77 U/L 32-92 [facility] Serum or plasma anion gap de terminationOrdered By: Govind Anderson on 06-03-2022 Anion gap [Moles/Vol] 11.6 mmol/L 6.0-15.0 [facility] Serum or plasma aspartate am inotransferase measurement (enzymatic activity/volume)Ordered By: Govind Anderson on 06-03-2022 AST [Catalytic activity/Vol] 15 U/L [facility] Serum or plasma calcium farida urement (mass/volume)Ordered By: Govind Anderson on 06-03-2022 Calcium [Mass/Vol] 7.9 mg/dL 8.2-10.2 [facility] Serum or plasma chloride trina surement (moles/volume)Ordered By: Govind Anderson on 06-03-2022 Chloride [Moles/Vol] 101 mmol/L 95-114 [facility] Serum or plasma creatine kin ase MB (CKMB)/total creatine kinase (CK) ratio by calculaOrdered By: Govind Anderson on 06-03-2022 CK.MB Calc [Catalytic fraction] 3.1 % 0.00-2.50 [facility] Serum or plasma creatine kin ase MB measurement (mass/volume)Ordered By: Govind Anderson on 06-03-2022 CK.MB [Mass/Vol] 7.7 ng/mL 0.6-6.3 [facility] Serum or plasma glucose farida urement (mass/volume)Ordered By: Govind Anderson on 06-03-2022 Glucose [Mass/Vol] 185 mg/dL 70-100 [facility] Comment on above: ADA recommended refe rence rangeRandom Glucose Reference Range is dependent on time and content of last meal. Glucose of more than 200 mg/dL in a nonstressed, ambulatory subject supports the diagnosis of Diabetes Mellitus. Serum or plasma potassium me asurement (moles/volume)Ordered By: Govind Anderson on 06-03-2022 Potassium [Moles/Vol] 3.7 mmol/L 3.5-5.1 [facility] Serum or plasma sodium measu rement (moles/volume)Ordered By: Govind Anderson on 06-03-2022 Sodium [Moles/Vol] 132 mmol/L 136-146 [facility] Serum or plasma total biliru bin measurement (mass/volume)Ordered By: Govind Anderson on 06-03-2022 Bilirubin [Mass/Vol] 0.4 mg/dL 0.3-1.2 [facility] Serum or plasma total carbon dioxide measurement (moles/volume)Ordered By: Govind Anderson on 06-03-2022 CO2 [Moles/Vol] 23.1 mmol/L 22.0-30.0 [facility] Serum or plasma urea nitroge n measurement (mass/volume)Ordered By: Govind Anderson on 06-03-2022 Urea nitrogen [Mass/Vol] 35 mg/dL 9-23 [facility] Troponin I.cardiac [Mass/vol ume] in Serum or Plasma by High sensitivity methodOrdered By: Govind Anderson on 06-03-2022 Troponin I.cardiac High sensitivity method [Mass/Vol] 44 pg/mL 0-20 [facility] Bacterial blood cultureOrder ed By: Romain Roy on 05-26-2022 Bacteria identified Cx Nom (Bld) NO GROWTH 5 DAYS [facility] No Panel InformationOrdered By: Romain Roy on 05-22-2022 SARS Antigen (LFIA) [facility] Activated partial thrombopla stin time (aPTT) in platelet poor plasma by coagulation aOrdered By: Romain Roy on 05-21-2022 aPTT Coag (PPP) [Time] 38.0 s 25.1-36.5 [facility] Bacterial blood cultureOrder ed By: Romain Roy on 05-21-2022 Bacteria identified Cx Nom (Bld) NO GROWTH 5 DAYS [facility] Basophils Auto (Bld) [#/Vol] Ordered By: Romain Roy on 05-21-2022 Basophils (Bld) [#/Vol] 0.1 10*3/uL 0.0-0.2 [facility] Basophils/100 WBC Auto (Bld) Ordered By: Romain Roy on 05-21-2022 Basophils/100 WBC (Bld) 1.6 % . [facility] Blood hemoglobin measurement (mass/volume)Ordered By: Romain Roy on 05-21-2022 Hemoglobin (Bld) [Mass/Vol] 11.0 g/dL 13.0-17.0 [facility] Blood leukocytes automated c ount (number/volume)Ordered By: Romain Roy on 05-21-2022 WBC (Bld) [#/Vol] 7.6 10*3/uL 4.5-11.0 [facility] COVID-19 SOFIAOrdered By: Dat Roy on 05-21-2022 SARS-CoV+SARS-CoV-2 (COVID-19) Ag IA.rapid Ql (Resp) Negative Negative [facility] Comment on above: This is a duplicate Jenni SARS Antigen (BARAK) result to be used for statistical tracking purpose only. Creatinine and Glomerular fi ltration rate.predicted panel (S/P/Bld)Ordered By: Romain Roy on 05-21-2022 Creatinine [Mass/Vol] 3.25 mg/dL 0.64-1.27 [facility] Eosinophils Auto (Bld) [#/Vo l]Ordered By: Romain Roy on 05-21-2022 Eosinophils (Bld) [#/Vol] 0.1 10*3/uL 0.0-0.45 [facility] Eosinophils/100 WBC Auto (Bl d)Ordered By: Romain Roy on 05-21-2022 Eosinophils/100 WBC (Bld) 1.8 % . [facility] Erythrocyte distribution wid th Auto (RBC) [Ratio]Ordered By: Romain Roy on 05-21-2022 Erythrocyte distribution width (RBC) [Ratio] 12.6 % 12.0-14.8 [facility] Estimated glomerular filtrat ion rate (GFR) non- AmericanOrdered By: Romain Roy on 05-21-2022 GFR/1.73 sq M.predicted among non-blacks MDRD (S/P/Bld) [Vol rate/Area] 22 mL/Min [facility] Hematocrit Auto (Bld) [Volum e fraction]Ordered By: Romain Roy on 05-21-2022 Hematocrit (Bld) [Volume fraction] 31.2 % 38.8-50.0 [facility] Laboratory - CoagulationOrde red By: Romain Roy on 05-21-2022 PT Coag (PPP) [Time] 11.6 s 9.0-12.9 [facility] Laboratory - Hematology and Cell countsOrdered By: Romain Roy on 05-21-2022 Nucleated RBC/100 WBC (Bld) [Ratio] 0.0 % 0-0.5 [facility] Lymphocytes Auto (Bld) [#/Vo l]Ordered By: Romain Roy on 05-21-2022 Lymphocytes (Bld) [#/Vol] 1.3 10*3/uL 1.00-4.8 [facility] Lymphocytes/100 WBC Auto (Bl d)Ordered By: Romain Roy on 05-21-2022 Lymphocytes/100 WBC (Bld) 17.4 % . [facility] MCH Auto (RBC) [Entitic mass ]Ordered By: Romain Roy on 05-21-2022 MCH (RBC) [Entitic mass] 29.6 pg 27.5-35.2 [facility] MCHC Auto (RBC) [Mass/Vol]Or dered By: Romain Roy on 05-21-2022 MCHC (RBC) [Mass/Vol] 35.1 g/dL 32.5-35.6 [facility] MCV Auto (RBC) [Entitic vol] Ordered By: Romain Roy on 05-21-2022 MCV (RBC) [Entitic vol] 84.3 fL 83.5-101 [facility] Monocytes Auto (Bld) [#/Vol] Ordered By: Romain Roy on 05-21-2022 Monocytes (Bld) [#/Vol] 0.3 10*3/uL 0.0-0.8 [facility] Monocytes/100 WBC Auto (Bld) Ordered By: Romain Roy on 05-21-2022 Monocytes/100 WBC (Bld) 4.5 % . [facility] Neutrophils Auto (Bld) [#/Vo l]Ordered By: Romain Roy on 05-21-2022 Neutrophils (Bld) [#/Vol] 5.7 10*3/uL 1.8-7.7 [facility] Neutrophils/100 WBC Auto (Bl d)Ordered By: Romain Roy on 05-21-2022 Neutrophils/100 WBC (Bld) 74.7 % . [facility] No Panel InformationOrdered By: Romain Roy on 05-21-2022 Estimated GFR () 26 mL/Min [facility] Comment on above: GFR estimated refere nce range: According to KDOQI guidelines, <60 ml/min/1.73m2 is sufficient to diagnose a patient with chronic kidney disease. Pharmacy Creatinine Clearance (Chem 32.57 [facility] SARS Antigen (LFIA) [facility] Phosphate [Mass/volume] in S gretta or PlasmaOrdered By: Romain Roy on 05-21-2022 Phosphate [Mass/Vol] 4.4 mg/dL 2.5-4.6 [facility] Platelet mean volume Auto (B ld) [Entitic vol]Ordered By: Romain Roy on 05-21-2022 Platelet mean volume (Bld) [Entitic vol] 8.4 fL 6.6-10.1 [facility] Platelet poor plasma interna tional normalized ratio (INR) by coagulation assay (relatOrdered By: Romain Roy on 05-21-2022 INR Coag (PPP) [Relative time] 1.0 {INR} [facility] Comment on above: INR Therapeutic Rang [...] 05-21-2022 Platelets (Bld) [#/Vol] 216 10*3/uL 150-450 [facility] RBC Auto (Bld) [#/Vol]Ordere d By: Romain Roy on 05-21-2022 RBC (Bld) [#/Vol] 3.71 10*6/uL 3.90-5.60 [facility] Serum or plasma anion gap de terminationOrdered By: Romain Roy on 05-21-2022 Anion gap [Moles/Vol] 13.4 mmol/L 6.0-15.0 [facility] Serum or plasma calcium farida urement (mass/volume)Ordered By: Romain Roy on 05-21-2022 Calcium [Mass/Vol] 8.3 mg/dL 8.2-10.2 [facility] Serum or plasma chloride trina surement (moles/volume)Ordered By: Romain Roy on 05-21-2022 Chloride [Moles/Vol] 99 mmol/L 95-114 [facility] Serum or plasma glucose farida urement (mass/volume)Ordered By: Romain Roy on 05-21-2022 Glucose [Mass/Vol] 396 mg/dL 70-100 [facility] Comment on above: ADA recommended refe rence rangeRandom Glucose Reference Range is dependent on time and content of last meal. Glucose of more than 200 mg/dL in a nonstressed, ambulatory subject supports the diagnosis of Diabetes Mellitus. Serum or plasma potassium me asurement (moles/volume)Ordered By: Romain Roy on 05-21-2022 Potassium [Moles/Vol] 3.3 mmol/L 3.5-5.1 [facility] Serum or plasma sodium measu rement (moles/volume)Ordered By: Romain Roy on 05-21-2022 Sodium [Moles/Vol] 132 mmol/L 136-146 [facility] Serum or plasma total biliru bin measurement (mass/volume)Ordered By: Romain Roy on 05-21-2022 Bilirubin [Mass/Vol] 0.4 mg/dL 0.3-1.2 [facility] Serum or plasma total carbon dioxide measurement (moles/volume)Ordered By: Romain Roy on 05-21-2022 CO2 [Moles/Vol] 22.9 mmol/L 22.0-30.0 [facility] Serum or plasma urea nitroge n measurement (mass/volume)Ordered By: Romain Roy on 05-21-2022 Urea nitrogen [Mass/Vol] 36 mg/dL 9-23 [facility] Serum or plasma uric acid me asurement (mass/volume)Ordered By: Romain Roy on 05-21-2022 Urate [Mass/Vol] 6.1 mg/dL 2.6-7.2 [facility] Troponin I.cardiac [Mass/vol ume] in Serum or Plasma by High sensitivity methodOrdered By: Romain Roy on 05-21-2022 Troponin I.cardiac High sensitivity method [Mass/Vol] 49 pg/mL 0-20 [facility] Urine lactic acid measuremen tOrdered By: Romain Roy on 05-21-2022 Lactate (U) [Moles/Vol] 0.7 mmol/L 0.5-2.2 [facility] Activated partial thrombopla stin time (aPTT) in platelet poor plasma by coagulation aOrdered By: Jorje Small on 05-18-2022 aPTT Coag (PPP) [Time] 38.8 s 25.1-36.5 [facility] Basophils Auto (Bld) [#/Vol] Ordered By: Jorje Small on 05-18-2022 Basophils (Bld) [#/Vol] 0.1 10*3/uL 0.0-0.2 [facility] Basophils/100 WBC Auto (Bld) Ordered By: Jorje Small on 05-18-2022 Basophils/100 WBC (Bld) 1.7 % . [facility] Blood hemoglobin measurement (mass/volume)Ordered By: Jorje Small on 05-18-2022 Hemoglobin (Bld) [Mass/Vol] 10.6 g/dL 13.0-17.0 [facility] Blood leukocytes automated c ount (number/volume)Ordered By: Jorje Small on 05-18-2022 WBC (Bld) [#/Vol] 7.6 10*3/uL 4.5-11.0 [facility] Eosinophils Auto (Bld) [#/Vo l]Ordered By: Jorje Small on 05-18-2022 Eosinophils (Bld) [#/Vol] 0.1 10*3/uL 0.0-0.45 [facility] Eosinophils/100 WBC Auto (Bl d)Ordered By: Jorje Small on 05-18-2022 Eosinophils/100 WBC (Bld) 1.7 % . [facility] Erythrocyte distribution wid th Auto (RBC) [Ratio]Ordered By: Jorje Small on 05-18-2022 Erythrocyte distribution width (RBC) [Ratio] 12.9 % 12.0-14.8 [facility] Hematocrit Auto (Bld) [Volum e fraction]Ordered By: Jorje Small on 05-18-2022 Hematocrit (Bld) [Volume fraction] 30.6 % 38.8-50.0 [facility] - CoagulationOrde red By: Jorje Small on 05-18-2022 PT Coag (PPP) [Time] 11.7 s 9.0-12.9 [facility] - Hematology and Cell countsOrdered By: Jorje Small on 05-18-2022 Nucleated RBC/100 WBC (Bld) [Ratio] 0.1 % 0-0.5 [facility] Lymphocytes Auto (Bld) [#/Vo l]Ordered By: Jorje Small on 05-18-2022 Lymphocytes (Bld) [#/Vol] 1.0 10*3/uL 1.00-4.8 [facility] Lymphocytes/100 WBC Auto (Bl d)Ordered By: Jorje Small on 05-18-2022 Lymphocytes/100 WBC (Bld) 13.8 % . [facility] MCH Auto (RBC) [Entitic mass ]Ordered By: Jorje Small on 05-18-2022 MCH (RBC) [Entitic mass] 29.5 pg 27.5-35.2 [facility] MCHC Auto (RBC) [Mass/Vol]Or dered By: Jorje Small on 05-18-2022 MCHC (RBC) [Mass/Vol] 34.5 g/dL 32.5-35.6 [facility] MCV Auto (RBC) [Entitic vol] Ordered By: Jorje Small on 05-18-2022 MCV (RBC) [Entitic vol] 85.5 fL 83.5-101 [facility] Monocytes Auto (Bld) [#/Vol] Ordered By: Jorje Small on 05-18-2022 Monocytes (Bld) [#/Vol] 0.3 10*3/uL 0.0-0.8 [facility] Monocytes/100 WBC Auto (Bld) Ordered By: Jorje Small on 05-18-2022 Monocytes/100 WBC (Bld) 4.5 % . [facility] Neutrophils Auto (Bld) [#/Vo l]Ordered By: Jorje Small on 05-18-2022 Neutrophils (Bld) [#/Vol] 5.9 10*3/uL 1.8-7.7 [facility] Neutrophils/100 WBC Auto (Bl d)Ordered By: Jorje Small on 05-18-2022 Neutrophils/100 WBC (Bld) 78.3 % . [facility] Platelet mean volume Auto (B ld) [Entitic vol]Ordered By: Jorje Small on 05-18-2022 Platelet mean volume (Bld) [Entitic vol] 9.0 fL 6.6-10.1 [facility] Platelet poor plasma interna tional normalized ratio (INR) by coagulation assay (relatOrdered By: Jorje Small on 05-18-2022 INR Coag (PPP) [Relative time] 1.0 {INR} [facility] Comment on above: INR Therapeutic Rang [...] 05-18-2022 Platelets (Bld) [#/Vol] 215 10*3/uL 150-450 [facility] RBC Auto (Bld) [#/Vol]Ordere d By: Jorje Small on 05-18-2022 RBC (Bld) [#/Vol] 3.58 10*6/uL 3.90-5.60 [facility] Albumin [Mass/volume] in Ser um or PlasmaOrdered By: Angel Mejía on 04-20-2022 Albumin [Mass/Vol] 2.5 g/dL 2.9-4.4 [facility] Albumin/Protein.total in 24 hour Urine by ElectrophoresisOrdered By: Angel Mejía on 04-20-2022 Albumin Elph (24H U) [Mass fraction] 78.6 % . [facility] Blood hemoglobin measurement (mass/volume)Ordered By: Angel Mejía on 04-20-2022 Hemoglobin (Bld) [Mass/Vol] 9.5 g/dL 13.0-17.0 [facility] Body fluid albumin measureme nt (mass/volume)Ordered By: Angel Mejía on 04-20-2022 Albumin (Body fld) [Mass/Vol] 2.2 g/dL 3.2-5.[address] [facility] [address] biopsyOrdered By: Varsha ricardo on 04-20-2022 CT biopsy See comment [id number] [facility] Comment on above: TESTING SENT TO LAB ORP SEE REPORT TESTING SENT TO LAB ORPSEE REPORT Creatinine [Mass/volume] in UrineOrdered By: Angel Mejía on 04-20-2022 Creatinine (U) [Mass/Vol] 160.7 mg/dL [facility] Comment on above: No reference range e stablished Creatinine and Glomerular fi ltration rate.predicted panel (S/P/Bld)Ordered By: Angel Mejía on 04-20-2022 Creatinine [Mass/Vol] 3.18 mg/dL 0.64-1.27 [facility] Erythrocyte distribution wid th Auto (RBC) [Ratio]Ordered By: Angel Mejía on 04-20-2022 Erythrocyte distribution width (RBC) [Ratio] 13.1 % 12.0-14.8 [facility] Estimated glomerular filtrat ion rate (GFR) non- AmericanOrdered By: Angel Mejía on 04-20-2022 GFR/1.73 sq M.predicted among non-blacks MDRD (S/P/Bld) [Vol rate/Area] 22 mL/Min [facility] Ferritin [Mass/volume] in Se rum or PlasmaOrdered By: Angel Mejía on 04-20-2022 Ferritin [Mass/Vol] 119.5 ng/mL 23.9-336.2 [facility] Gamma globulin/Protein.total in 24 hour Urine by ElectrophoresisOrdered By: Angel Mejía on 04-20-2022 Gamma globulin Elph (24H U) [Mass fraction] 8.7 % . [facility] Hematocrit Auto (Bld) [Volum e fraction]Ordered By: Angel Mejía on 04-20-2022 Hematocrit (Bld) [Volume fraction] 27.1 % 38.8-50.0 [facility] IgA [Mass/volume] in Serum o r PlasmaOrdered By: Angel Joyce on 04-20-2022 IgA [Mass/Vol] 310 mg/dL 90-386 [facility] IgG [Mass/volume] in Serum o r PlasmaOrdered By: Angel Joyce on 04-20-2022 IgG [Mass/Vol] 821 mg/dL 603-1613 [facility] IgM [Mass/volume] in Serum o r PlasmaOrdered By: Angel Joyce on 04-20-2022 IgM [Mass/Vol] 211 mg/dL 20-172 [facility] Comment on above: Performed at: [email or web address] [address] [id number] Relay Assembler: Pablito Alexander PhD, Phone: [phone] Performed at: [email or web address] [address] [id number] Director: Pablito Alexander PhD, Phone: [phone] Immunofixation for UrineOrde red By: Angel Mejía on 04-20-2022 Interpretation Immunofixation (U) [Interp] See comment . [facility] Comment on above: Immunofixation shows IgG monoclonal protein with kappa light chain specificity. Performed at: [employer] [id number] Relay Assembler: Pablito Alexander PhD, Phone: [phone] Immunofixation shows IgG monoclonal protein with kappalight chain specificity.Performed at: [employer]([facility])[address] [id number] Director: Pablito Alexander PhD, Phone: [phone] Immunoglobulin light chains. kappa.free [Mass/volume] in SerumOrdered By: Angel Joyce on 04-20-2022 Immunoglobulin light chains.kappa.free (S) [Mass/Vol] 112.0 mg/L 3.3-19.4 [facility] Immunoglobulin light chains. kappa.free/Immunoglobulin light chains.lambda.free [MassOrdered By: Angel Joyce on 04-20-2022 Immunoglobulin light chains.kappa.free/Immun oglobulin light chains.lambda.free (S) [Mass ratio] 1.83 0.26-1.65 [facility] Comment on above: Performed at: [facility] [address], [place] [id number] Relay Assembler: Pablito Alexander PhD, Phone: [phone] Performed at: [employer] [facility] [id number] [place], [place] [id number] Director: Pablito Alexander PhD, Phone: [phone] Immunoglobulin light chains. lambda.free [Mass/volume] in Serum or PlasmaOrdered By: Angel Mejía on 04-20-2022 Immunoglobulin light chains.lambda.free [Mass/Vol] 61.3 mg/L 5.7-26.3 [facility] Iron [Mass/volume] in Serum or PlasmaOrdered By: Angel Mejía on 04-20-2022 Iron [Mass/Vol] 44 ug/dL 40-160 [facility] Iron binding capacity [Mass/ volume] in Serum or PlasmaOrdered By: Angel Mejía on 04-20-2022 Iron binding capacity [Mass/Vol] [facility] Comment on above: Test not performed Iron saturation [Mass Fracti on] in Serum or PlasmaOrdered By: Angel Mejía on 04-20-2022 Iron saturation [Mass fraction] [facility] Comment on above: Test not performed Laboratory - Chemistry and C hemistry - challengeOrdered By: Angel Mejía on 04-20-2022 Magnesium [Mass/Vol] 1.9 mg/dL 1.6-2.6 [facility] MCH Auto (RBC) [Entitic mass ]Ordered By: Angel Mejía on 04-20-2022 MCH (RBC) [Entitic mass] 30.0 pg 27.5-35.2 [facility] MCHC Auto (RBC) [Mass/Vol]Or dered By: Angel Mejía on 04-20-2022 MCHC (RBC) [Mass/Vol] 34.9 g/dL 32.5-35.6 [facility] MCV Auto (RBC) [Entitic vol] Ordered By: Angel Mejía on 04-20-2022 MCV (RBC) [Entitic vol] 86.0 fL 83.5-101 [facility] No Panel InformationOrdered By: Angel Mejía on 04-20-2022 Estimated GFR () 27 mL/Min [facility] Comment on above: GFR estimated refere nce range: According to KDOQI guidelines, <60 ml/min/1.73m2 is sufficient to diagnose a patient with chronic kidney disease. Pharmacy Creatinine Clearance (Chem N/A [facility] Protein Electrophoresis [facility] Comment: g/dL Not Observed [facility] Comment on above: SPE shows asymmetric al gamma. Protein Electrophoresis Note See comment . [facility] Comment on above: Protein electrophore sis scan will follow via computer, mail, or jewelry making instructor delivery. Performed at: [employer] [id number] Relay Assembler: Pablito Alexander PhD, Phone: [phone] Protein electrophore sis scan will follow via computer,mail, or jewelry making instructor delivery.Performed at: [employer] [id number] Director: Pablito Alexander PhD, Phone: [phone] Serum Immunofixation Comment: . [facility] Comment on above: Presence of monoclon [...] Random Prot Electrophor Note See comment . [facility] Comment on above: Protein electrophore sis scan will follow via computer, mail, or jewelry making instructor delivery. Performed at: [employer] [id number] Relay Assembler: Pablito Alexander PhD, Phone: [phone] Protein electrophore sis scan will follow via computer,mail, or jewelry making instructor delivery.Performed at: [employer] [id number] Director: Pablito Alexander PhD, Phone: [phone] Phosphate [Mass/volume] in S gretta or PlasmaOrdered By: Angel Mejía on 04-20-2022 Phosphate [Mass/Vol] 5.4 mg/dL 2.5-4.6 [facility] Platelet mean volume Auto (B ld) [Entitic vol]Ordered By: Angel Mejía on 04-20-2022 Platelet mean volume (Bld) [Entitic vol] 8.5 fL 6.6-10.1 [facility] Platelets Auto (Bld) [#/Vol] Ordered By: Angel Mejía on 04-20-2022 Platelets (Bld) [#/Vol] 252 10*3/uL 150-450 [facility] Protein [Mass/volume] in Ser um or PlasmaOrdered By: Angel Mejía on 04-20-2022 Protein [Mass/Vol] 5.5 g/dL 6.0-8.5 [facility] Protein [Mass/volume] in Uri neOrdered By: Angel Mejía on 04-20-2022 Protein (U) [Mass/Vol] 840 mg/dL 0-9 [facility] Protein (U) [Mass/Vol] 976.2 mg/dL Not Estab. [facility] Comment on above: Results confirmed on dilution. Results confirmed on dilution. Protein.monoclonal/Protein.t otal in 24 hour Urine by ElectrophoresisOrdered By: Angel Mejía on 04-20-2022 Protein.monoclonal Elph (24H U) [Mass fraction] Not observed % Not Observed [facility] RBC Auto (Bld) [#/Vol]Ordere d By: Angel Mejía on 04-20-2022 RBC (Bld) [#/Vol] 3.16 10*6/uL 3.90-5.60 [facility] Serum globulin measurement ( mass/volume)Ordered By: Angel Mejía on 04-20-2022 Globulin (S) [Mass/Vol] 3.0 g/dL 2.2-3.9 [facility] Serum or plasma albumin/glob ulin mass ratioOrdered By: Angel Mejía on 04-20-2022 Albumin/Globulin [Mass ratio] 0.8 {ratio} 0.7-1.7 [facility] Serum or plasma alpha 1 glob ulin measurement by electrophoresis (mass/volume)Ordered By: Angel Mejía on 04-20-2022 Alpha 1 globulin Elph [Mass/Vol] 0.3 g/dL 0.0-0.4 [facility] Serum or plasma alpha 2 glob ulin measurement by electrophoresis (mass/volume)Ordered By: Angel Mejía on 04-20-2022 Alpha 2 globulin Elph [Mass/Vol] 1.0 g/dL 0.4-1.0 [facility] Serum or plasma anion gap de terminationOrdered By: Angel Mejía on 04-20-2022 Anion gap [Moles/Vol] 14.6 mmol/L 6.0-15.0 [facility] Serum or plasma beta globuli n measurement by electrophoresis (mass/volume)Ordered By: Angel Mejía on 04-20-2022 Beta globulin Elph [Mass/Vol] 0.8 g/dL 0.7-1.3 [facility] Serum or plasma calcium farida urement (mass/volume)Ordered By: Angel Mejía on 04-20-2022 Calcium [Mass/Vol] 8.2 mg/dL 8.2-10.2 [facility] Serum or plasma chloride trina surement (moles/volume)Ordered By: Angel Mejía on 04-20-2022 Chloride [Moles/Vol] 102 mmol/L 95-114 [facility] Serum or plasma gamma globul in measurement by electrophoresis (mass/volume)Ordered By: Angel Mejía on 04-20-2022 Gamma globulin Elph [Mass/Vol] 0.9 g/dL 0.4-1.8 [facility] Serum or plasma glucose farida urement (mass/volume)Ordered By: Angel Mejía on 04-20-2022 Glucose [Mass/Vol] 211 mg/dL 70-100 [facility] Comment on above: ADA recommended refe [...] on 04-20-2022 Potassium [Moles/Vol] 4.0 mmol/L 3.5-5.1 [facility] Serum or plasma sodium measu rement (moles/volume)Ordered By: Angel Mejía on 04-20-2022 Sodium [Moles/Vol] 134 mmol/L 136-146 [facility] Serum or plasma total carbon dioxide measurement (moles/volume)Ordered By: Angel Mejía on 04-20-2022 CO2 [Moles/Vol] 21.4 mmol/L 22.0-30.0 [facility] Serum or plasma urea nitroge n measurement (mass/volume)Ordered By: Angel Mejía on 04-20-2022 Urea nitrogen [Mass/Vol] 31 mg/dL 05-11 [facility] Urine alpha 1 globulin/total protein by electrophoresisOrdered By: Angel Mejía on 04-20-2022 Alpha 1 globulin Elph (U) [Mass fraction] 0.4 % . [facility] Urine alpha 2 globulin/total protein ratio by electrophoresisOrdered By: Angel Mejía on 04-20-2022 Alpha 2 globulin Elph (U) [Mass fraction] 3.8 % . [facility] Urine beta globulin measurem ent by electrophoresis (mass/volume)Ordered By: Angel Mejía on 04-20-2022 Beta globulin Elph (U) [Mass/Vol] 8.6 % . [facility] Urine protein/creatinine rat ioOrdered By: Angel Mejía on 04-20-2022 Protein/Creatinine (U) [Ratio] 5227 mg/g{Cre} 0-200 [facility] WBC Auto (Bld) [#/Vol]Ordere d By: Angel Mejía on 04-20-2022 WBC (Bld) [#/Vol] 7.7 10*3/uL 4.1-10.5 [facility] Troponin I.cardiac [Mass/vol ume] in Serum or Plasma by High sensitivity methodOrdered By: Hector Mann on 04-10-2022 Troponin I.cardiac High sensitivity method [Mass/Vol] 31 pg/mL 0-20 [facility] Activated partial thrombopla stin time (aPTT) in platelet poor plasma by coagulation aOrdered By: Hector Mann on 04-09-2022 aPTT Coag (PPP) [Time] 41.2 s 25.1-36.5 [facility] Basophils Auto (Bld) [#/Vol] Ordered By: Hector Mann on 04-09-2022 Basophils (Bld) [#/Vol] 0.1 10*3/uL 0.0-0.2 [facility] Basophils/100 WBC Auto (Bld) Ordered By: Hector Mann on 04-09-2022 Basophils/100 WBC (Bld) 1.8 % . [facility] Blood hemoglobin measurement (mass/volume)Ordered By: Hector Mann on 04-09-2022 Hemoglobin (Bld) [Mass/Vol] 9.0 g/dL 13.0-17.0 [facility] Blood leukocytes automated c ount (number/volume)Ordered By: Hector Mann on 04-09-2022 WBC (Bld) [#/Vol] 7.1 10*3/uL 4.5-11.0 [facility] Creatinine and Glomerular fi ltration rate.predicted panel (S/P/Bld)Ordered By: Hector Mann on 04-09-2022 Creatinine [Mass/Vol] 2.63 mg/dL 0.64-1.27 [facility] Eosinophils Auto (Bld) [#/Vo l]Ordered By: Hector Mann on 04-09-2022 Eosinophils (Bld) [#/Vol] 0.2 10*3/uL 0.0-0.45 [facility] Eosinophils/100 WBC Auto (Bl d)Ordered By: Hector Mann on 04-09-2022 Eosinophils/100 WBC (Bld) 2.4 % . [facility] Erythrocyte distribution wid th Auto (RBC) [Ratio]Ordered By: Hector Mann on 04-09-2022 Erythrocyte distribution width (RBC) [Ratio] 13.5 % 12.0-14.8 [facility] Estimated glomerular filtrat ion rate (GFR) non- AmericanOrdered By: Hector Mann on 04-09-2022 GFR/1.73 sq M.predicted among non-blacks MDRD (S/P/Bld) [Vol rate/Area] 28 mL/Min [facility] Hematocrit Auto (Bld) [Volum e fraction]Ordered By: Hector Mann on 04-09-2022 Hematocrit (Bld) [Volume fraction] 25.8 % 38.8-50.0 [facility] - Chemistry and C hemistry - challengeOrdered By: Hector Mann on 04-09-2022 Natriuretic peptide B (Bld) [Mass/Vol] 808.0 pg/mL 5-100 [facility] - CoagulationOrde red By: Hector Mann on 04-09-2022 PT Coag (PPP) [Time] 12.2 s 9.0-12.9 [facility] - Hematology and Cell countsOrdered By: Hector Mann on 04-09-2022 Nucleated RBC/100 WBC (Bld) [Ratio] 0.0 % 0-0.5 [facility] Lymphocytes Auto (Bld) [#/Vo l]Ordered By: Hector Mann on 04-09-2022 Lymphocytes (Bld) [#/Vol] 1.6 10*3/uL 1.00-4.8 [facility] Lymphocytes/100 WBC Auto (Bl d)Ordered By: Hector Mann on 04-09-2022 Lymphocytes/100 WBC (Bld) 21.8 % . [facility] MCH Auto (RBC) [Entitic mass ]Ordered By: Hector Mann on 04-09-2022 MCH (RBC) [Entitic mass] 30.0 pg 27.5-35.2 [facility] MCHC Auto (RBC) [Mass/Vol]Or dered By: Hector Mann on 04-09-2022 MCHC (RBC) [Mass/Vol] 34.9 g/dL 32.5-35.6 [facility] MCV Auto (RBC) [Entitic vol] Ordered By: Hector Mann on 04-09-2022 MCV (RBC) [Entitic vol] 86.0 fL 83.5-101 [facility] Monocytes Auto (Bld) [#/Vol] Ordered By: Hector Mann on 04-09-2022 Monocytes (Bld) [#/Vol] 0.3 10*3/uL 0.0-0.8 [facility] Monocytes/100 WBC Auto (Bld) Ordered By: Hector Mann on 04-09-2022 Monocytes/100 WBC (Bld) 4.5 % . [facility] Neutrophils Auto (Bld) [#/Vo l]Ordered By: Hector Mann on 04-09-2022 Neutrophils (Bld) [#/Vol] 4.9 10*3/uL 1.8-7.7 [facility] Neutrophils/100 WBC Auto (Bl d)Ordered By: Hector Mann on 04-09-2022 Neutrophils/100 WBC (Bld) 69.5 % . [facility] No Panel InformationOrdered By: Hector Mann on 04-09-2022 Estimated GFR () 33 mL/Min [facility] Comment on above: GFR estimated refere nce range: According to KDOQI guidelines, <60 ml/min/1.73m2 is sufficient to diagnose a patient with chronic kidney disease. Pharmacy Creatinine Clearance (Chem 41.94 [facility] Platelet mean volume Auto (B ld) [Entitic vol]Ordered By: Hector Mann on 04-09-2022 Platelet mean volume (Bld) [Entitic vol] 7.9 fL 6.6-10.1 [facility] Platelet poor plasma interna tional normalized ratio (INR) by coagulation assay (relatOrdered By: Hector Mann on 04-09-2022 INR Coag (PPP) [Relative time] 1.1 {INR} [facility] Comment on above: INR Therapeutic Rang [...] 04-09-2022 Platelets (Bld) [#/Vol] 215 10*3/uL 150-450 [facility] RBC Auto (Bld) [#/Vol]Ordere d By: Hector Mann on 04-09-2022 RBC (Bld) [#/Vol] 3.00 10*6/uL 3.90-5.60 [facility] Serum or plasma calcium farida urement (mass/volume)Ordered By: Hector Mann on 04-09-2022 Calcium [Mass/Vol] 8.0 mg/dL 8.2-10.2 [facility] Serum or plasma chloride trina surement (moles/volume)Ordered By: Hector Mann on 04-09-2022 Chloride [Moles/Vol] 104 mmol/L 95-114 [facility] Serum or plasma glucose farida urement (mass/volume)Ordered By: Hector Mann on 04-09-2022 Glucose [Mass/Vol] 236 mg/dL 70-100 [facility] Comment on above: ADA recommended refe [...] on 04-09-2022 Potassium [Moles/Vol] 3.7 mmol/L 3.5-5.1 [facility] Serum or plasma sodium measu rement (moles/volume)Ordered By: Hector Mann on 04-09-2022 Sodium [Moles/Vol] 134 mmol/L 136-146 [facility] Serum or plasma total carbon dioxide measurement (moles/volume)Ordered By: Hector Mann on 04-09-2022 CO2 [Moles/Vol] 21.8 mmol/L 22.0-30.0 [facility] Serum or plasma urea nitroge n measurement (mass/volume)Ordered By: Hector Mann on 04-09-2022 Urea nitrogen [Mass/Vol] 31 mg/dL 9-23 [facility] Automated erythrocytes count in urine sediment (number/area)Ordered By: Angel Mejía on 03-13-2022 RBC Auto (Urine sed) [#/Area] 20-49 [HPF] 0-4 [facility] Automated leukocytes count i n urine sediment (number/area)Ordered By: Angel Mejía on 03-13-2022 WBC Auto (Urine sed) [#/Area] 1-2 [HPF] 0-4 [facility] Bilirubin Test strip Ql (U)O rdered By: Angel Mejía on 03-13-2022 Bilirubin Ql (U) Negative Negative [facility] Blood hemoglobin measurement (mass/volume)Ordered By: Angel Mejía on 03-13-2022 Hemoglobin (Bld) [Mass/Vol] 9.5 g/dL 13.0-17.0 [facility] Body fluid albumin measureme nt (mass/volume)Ordered By: Angel Mejía on 03-13-2022 Albumin (Body fld) [Mass/Vol] 2.1 g/dL 3.2-5.[address] [facility] [address] biopsyOrdered By: Varsha ricardo on 03-13-2022 Transferrin [Mass/Vol] 140 mg/dL 180-380 [facility] Auto (U)Ordered By: Ab yusra Mejía on 03-13-2022 Color (U) Yellow Yellow [facility] Creatinine [Mass/volume] in UrineOrdered By: Angel Mejía on 03-13-2022 Creatinine (U) [Mass/Vol] 54.4 mg/dL [facility] Comment on above: No reference range e stablished Creatinine and Glomerular fi ltration rate.predicted panel (S/P/Bld)Ordered By: Angel Mejía on 03-13-2022 Creatinine [Mass/Vol] 3.06 mg/dL 0.64-1.27 [facility] Erythrocyte distribution wid th Auto (RBC) [Ratio]Ordered By: Angel Mejía on 03-13-2022 Erythrocyte distribution width (RBC) [Ratio] 13.4 % 12.0-14.8 [facility] Estimated glomerular filtrat ion rate (GFR) non- AmericanOrdered By: Angel Mejía on 03-13-2022 GFR/1.73 sq M.predicted among non-blacks MDRD (S/P/Bld) [Vol rate/Area] 23 mL/Min [facility] Ferritin [Mass/volume] in Se rum or PlasmaOrdered By: Angel Mejía on 03-13-2022 Ferritin [Mass/Vol] 118.8 ng/mL 23.9-336.2 [facility] Folate [Mass/volume] in Seru m or PlasmaOrdered By: Eusebio Olivares on 03-13-2022 Folate [Mass/Vol] 7.9 ng/mL >5.9 [facility] Comment on above: Folate reference ran ge: >5.9 ng/ml The WHO technical consultation on folate and vitamin b12 deficiencies has determined that folate concentrations less than 4 ng/ml are considered deficient. Folate reference ran ge: >5.9 ng/mlThe WHO technical consultation on folate and vitamin [id number] has determined that folate concentrations lessthan 4 ng/ml are considered deficient. Hematocrit Auto (Bld) [Volum e fraction]Ordered By: Angel Mejía on 03-13-2022 Hematocrit (Bld) [Volume fraction] 27.7 % 38.8-50.0 [facility] Immunoglobulin light chains. kappa.free [Mass/volume] in SerumOrdered By: Angel Mejía on 03-13-2022 Immunoglobulin light chains.kappa.free (S) [Mass/Vol] 124.5 mg/L 3.3-19.4 [facility] Immunoglobulin light chains. kappa.free/Immunoglobulin light chains.lambda.free [MassOrdered By: Angel Mejía on 03-13-2022 Immunoglobulin light chains.kappa.free/Immun oglobulin light chains.lambda.free (S) [Mass ratio] 2.13 0.26-1.65 [facility] Comment on above: Performed at: [facility] [address], [place] [id number] [employer] As[employer]er: Pablito Alexander PhD, Phone: [phone] Performed at: [email or web address] [id number], [place] [id number] Director: Pablito Alexander PhD, Phone: [phone] Immunoglobulin light chains. lambda.free [Mass/volume] in Serum or PlasmaOrdered By: Angel Mejía on 03-13-2022 Immunoglobulin light chains.lambda.free [Mass/Vol] 58.4 mg/L 5.7-26.3 [facility] Iron [Mass/volume] in Serum or PlasmaOrdered By: Angel Mejía on 03-13-2022 Iron [Mass/Vol] 44 ug/dL 40-160 [facility] Iron binding capacity [Mass/ volume] in Serum or PlasmaOrdered By: Angel Mejía on 03-13-2022 Iron binding capacity [Mass/Vol] 196 ug/dL 255-450 [facility] Iron saturation [Mass Fracti on] in Serum or PlasmaOrdered By: Angel Mejía on 03-13-2022 Iron saturation [Mass fraction] 22.0 % 20-50 [facility] Ketones Auto test strip (U) [Mass/Vol]Ordered By: Angel Mejía on 03-13-2022 Ketones (U) [Mass/Vol] Negative Negative [facility] - Chemistry and C hemistry - challengeOrdered By: Eusebio Olivares on 03-13-2022 Cobalamin (Vitamin B12) [Mass/Vol] 580 pg/mL 180-914 [facility] - Chemistry and C hemistry - challengeOrdered By: Angel Mejía on 03-13-2022 Magnesium [Mass/Vol] 1.9 mg/dL 1.6-2.6 [facility] - UrinalysisOrder ed By: Angel Mejía on 03-13-2022 Hyaline casts LM Ql (Urine sed) 0-8 [LPF] 0-8 [facility] MCH Auto (RBC) [Entitic mass ]Ordered By: Angel Mejía on 03-13-2022 MCH (RBC) [Entitic mass] 29.8 pg 27.5-35.2 [facility] MCHC Auto (RBC) [Mass/Vol]Or dered By: Angel Mejía on 03-13-2022 MCHC (RBC) [Mass/Vol] 34.2 g/dL 32.5-35.6 [facility] MCV Auto (RBC) [Entitic vol] Ordered By: Angel Mejía on 03-13-2022 MCV (RBC) [Entitic vol] 87.3 fL 83.5-101 [facility] Nitrite Test strip Ql (U)Ord ered By: Angel Mejía on 03-13-2022 Nitrite Ql (U) Negative Negative [facility] No Panel InformationOrdered By: Angel Mejía on 03-13-2022 25-Hydroxy Vitamin D Total < 7.0 ng/mL 30-100 [facility] Comment on above: VITAMIN D STATUS [...] <30Sufficient 30 to 100Reference: Chemo Campbell, Sergey SMIENTAL, et al. Evaluation,treatment, and prevention of vitamin D deficiency; an Endocrine Society clinical practice guideline. JCEM. 2010; 96(7):1911-30. Estimated GFR () 28 mL/Min [facility] Comment on above: GFR estimated refere nce range: According to KDOQI guidelines, <60 ml/min/1.73m2 is sufficient to diagnose a patient with chronic kidney disease. Pharmacy Creatinine Clearance (Chem N/A [facility] Phosphate [Mass/volume] in S gretta or PlasmaOrdered By: Angel Mejía on 03-13-2022 Phosphate [Mass/Vol] 4.5 mg/dL 2.5-4.6 [facility] Platelet mean volume Auto (B ld) [Entitic vol]Ordered By: Angel Mejía on 03-13-2022 Platelet mean volume (Bld) [Entitic vol] 8.5 fL 6.6-10.1 [facility] Platelets Auto (Bld) [#/Vol] Ordered By: Angel Mejía on 03-13-2022 Platelets (Bld) [#/Vol] 232 10*3/uL 150-450 [facility] Protein Auto test strip (U) [Mass/Vol]Ordered By: Angel Mejía on 03-13-2022 Protein (U) [Mass/Vol] 300 mg/dL Negative [facility] Protein [Mass/volume] in Uri neOrdered By: Angel Mejía on 03-13-2022 Protein (U) [Mass/Vol] 408 mg/dL 0-9 [facility] RBC Auto (Bld) [#/Vol]Ordere d By: Angel Mejía on 03-13-2022 RBC (Bld) [#/Vol] 3.17 10*6/uL 3.90-5.60 [facility] Serum or plasma calcium farida urement (mass/volume)Ordered By: Angel Mejía on 03-13-2022 Calcium [Mass/Vol] 8.4 mg/dL 8.2-10.2 [facility] Serum or plasma chloride trina surement (moles/volume)Ordered By: Angel Mejía on 03-13-2022 Chloride [Moles/Vol] 105 mmol/L 95-114 [facility] Serum or plasma glucose farida urement (mass/volume)Ordered By: Angel Mejía on 03-13-2022 Glucose [Mass/Vol] 163 mg/dL 70-100 [facility] Comment on above: ADA recommended refe [...] on 03-13-2022 Parathyrin.intact [Mass/Vol] 164.8 pg/mL 12-88 [facility] Serum or plasma methylmalona te measurement (moles/volume)Ordered By: Eusebio Olivares on 03-13-2022 Methylmalonate [Moles/Vol] 2205 nmol/L 0-378 [facility] Comment on above: This test was develo ped and its performance characteristics determined by [employer]. It has not been cleared or approved by the Food and Drug Administration. Performed at: [address] [id number] Relay As[employer]er: Saulo Araujo MD, Phone: [phone] This test was develo ped and its performance characteristicsdetermined by [employer]. It has not been cleared orapproved by the Food and Drug Administration.Performed at: [facility] [employer] [id number] Director: Saulo Araujo MD, Phone: [phone] Serum or plasma potassium me asurement (moles/volume)Ordered By: Angel Mejía on 03-13-2022 Potassium [Moles/Vol] 4.9 mmol/L 3.5-5.1 [facility] Serum or plasma sodium measu rement (moles/volume)Ordered By: Angel Mejía on 03-13-2022 Sodium [Moles/Vol] 135 mmol/L 136-146 [facility] Serum or plasma total carbon dioxide measurement (moles/volume)Ordered By: Angel Mejía on 03-13-2022 CO2 [Moles/Vol] 24.2 mmol/L 22.0-30.0 [facility] Serum or plasma urea nitroge n measurement (mass/volume)Ordered By: Angel Mejía on 03-13-2022 Urea nitrogen [Mass/Vol] 37 mg/dL 9-23 [facility] Serum or plasma uric acid me asurement (mass/volume)Ordered By: Angel Mejía on 03-13-2022 Urate [Mass/Vol] 5.8 mg/dL 2.6-7.2 [facility] Specific gravity Auto test s trip (U) [Rel density]Ordered By: Angel Mejía on 03-13-2022 Specific gravity (U) [Rel density] 1.012 1.001-1.030 [facility] Squamous epithelial cells de tection in urine sediment by light microscopyOrdered By: Angel Mejía on 03-13-2022 Epithelial cells.squamous LM Ql (Urine sed) 0-1 [HPF] 0-2 [facility] Urine bacteria detection by automated methodOrdered By: Angel Mejía on 03-13-2022 Bacteria Auto Ql (U) None seen None Seen [facility] Urine clarity by refractomet ry automatedOrdered By: Angel Mejía on 03-13-2022 Clarity Refractometry automated (U) Clear Clear [facility] Urine glucose measurement by automated test strip (mass/volume)Ordered By: Angel Mejía on 03-13-2022 Glucose Auto test strip (U) [Mass/Vol] 500 mg/dL Normal [facility] Urine hemoglobin detection b y automated test stripOrdered By: Angel Mejía on 03-13-2022 Hemoglobin Auto test strip Ql (U) 1+ Negative [facility] Urine leukocyte esterase det ection by automated test stripOrdered By: Angel Mejía on 03-13-2022 Leukocyte esterase Auto test strip Ql (U) Negative Negative [facility] Urine protein/creatinine rat ioOrdered By: Angel Mejía on 03-13-2022 Protein/Creatinine (U) [Ratio] 7500 mg/g{Cre} 0-200 [facility] Urobilinogen Auto test strip (U) [Mass/Vol]Ordered By: Angel Mejía on 03-13-2022 Urobilinogen (U) [Mass/Vol] Normal mg/dL Normal [facility] WBC Auto (Bld) [#/Vol]Ordere d By: Angel Mejía on 03-13-2022 WBC (Bld) [#/Vol] 7.6 10*3/uL 4.1-10.5 [facility] pH Auto test strip (U)Ordere d By: Angel Mejía on 03-13-2022 pH (U) 6.0 [pH] 5.0-9.0 [facility] Basophils Auto (Bld) [#/Vol] Ordered By: Eusebio Olivares on 03-09-2022 Basophils (Bld) [#/Vol] 0.1 10*3/uL 0.0-0.2 [facility] Basophils/100 WBC Auto (Bld) Ordered By: Eusebio Olivares on 03-09-2022 Basophils/100 WBC (Bld) 1.4 % . [facility] Blood hemoglobin measurement (mass/volume)Ordered By: Eusebio Olivares on 03-09-2022 Hemoglobin (Bld) [Mass/Vol] 9.4 g/dL 13.0-17.0 [facility] Blood leukocytes automated c ount (number/volume)Ordered By: Eusebio Olivares on 03-09-2022 WBC (Bld) [#/Vol] 6.4 10*3/uL 4.5-11.0 [facility] Creatinine and Glomerular fi ltration rate.predicted panel (S/P/Bld)Ordered By: Eusebio Olivares on 03-09-2022 Creatinine [Mass/Vol] 2.87 mg/dL 0.64-1.27 [facility] Eosinophils Auto (Bld) [#/Vo l]Ordered By: Eusebio Olivares on 03-09-2022 Eosinophils (Bld) [#/Vol] 0.1 10*3/uL 0.0-0.45 [facility] Eosinophils/100 WBC Auto (Bl d)Ordered By: Eusebio Olivares on 03-09-2022 Eosinophils/100 WBC (Bld) 2.2 % . [facility] Erythrocyte distribution wid th Auto (RBC) [Ratio]Ordered By: Eusebio Olivares on 03-09-2022 Erythrocyte distribution width (RBC) [Ratio] 13.5 % 12.0-14.8 [facility] Estimated glomerular filtrat ion rate (GFR) non- AmericanOrdered By: Eusebio Olivares on 03-09-2022 GFR/1.73 sq M.predicted among non-blacks MDRD (S/P/Bld) [Vol rate/Area] 25 mL/Min [facility] Glucose mean value [Mass/vol ume] in Blood Estimated from glycated hemoglobinOrdered By: Eusebio Olivares on 03-09-2022 Average glucose Estimated from glycated hemoglobin (Bld) [Mass/Vol] 189 mg/dL [facility] Hematocrit Auto (Bld) [Volum e fraction]Ordered By: Eusebio Olivares on 03-09-2022 Hematocrit (Bld) [Volume fraction] 27.1 % 38.8-50.0 [facility] Hemoglobin A1c percentageOrd ered By: Eusebio Olivares on 03-09-2022 HbA1c (Bld) [Mass fraction] 8.2 % 4.3-5.6 [facility] Comment on above: Increased risk for d iabetes: 5.7 - 6.4 diabetes: >6.4 glycemic control for adults with diabetes: <7.0 Increased risk for d iabetes: 5.7 - 6.4diabetes: >6.4glycemic control for adults with diabetes: <7.0 Laboratory - Hematology and Cell countsOrdered By: Eusebio Olivares on 03-09-2022 Nucleated RBC/100 WBC (Bld) [Ratio] 0.0 % 0-0.5 [facility] Lymphocytes Auto (Bld) [#/Vo l]Ordered By: Eusebio Olivares on 03-09-2022 Lymphocytes (Bld) [#/Vol] 1.3 10*3/uL 1.00-4.8 [facility] Lymphocytes/100 WBC Auto (Bl d)Ordered By: Eusebio Olivares on 03-09-2022 Lymphocytes/100 WBC (Bld) 20.2 % . [facility] MCH Auto (RBC) [Entitic mass ]Ordered By: Eusebio Olivares on 03-09-2022 MCH (RBC) [Entitic mass] 30.0 pg 27.5-35.2 [facility] MCHC Auto (RBC) [Mass/Vol]Or dered By: Eusebio Olivares on 03-09-2022 MCHC (RBC) [Mass/Vol] 34.7 g/dL 32.5-35.6 [facility] MCV Auto (RBC) [Entitic vol] Ordered By: Eusebio Olivares on 03-09-2022 MCV (RBC) [Entitic vol] 86.4 fL 83.5-101 [facility] Monocytes Auto (Bld) [#/Vol] Ordered By: Eusebio Olivares on 03-09-2022 Monocytes (Bld) [#/Vol] 0.3 10*3/uL 0.0-0.8 [facility] Monocytes/100 WBC Auto (Bld) Ordered By: Eusebio Olivares on 03-09-2022 Monocytes/100 WBC (Bld) 5.2 % . [facility] Neutrophils Auto (Bld) [#/Vo l]Ordered By: Eusebio Olivares on 03-09-2022 Neutrophils (Bld) [#/Vol] 4.6 10*3/uL 1.8-7.7 [facility] Neutrophils/100 WBC Auto (Bl d)Ordered By: Eusebio Olivares on 03-09-2022 Neutrophils/100 WBC (Bld) 71.0 % . [facility] No Panel InformationOrdered By: Eusebio Olivares on 03-09-2022 Estimated GFR () 30 mL/Min [facility] Comment on above: GFR estimated refere nce range: According to KDOQI guidelines, <60 ml/min/1.73m2 is sufficient to diagnose a patient with chronic kidney disease. Pharmacy Creatinine Clearance (Chem N/A [facility] Platelet mean volume Auto (B ld) [Entitic vol]Ordered By: Eusebio Olivares on 03-09-2022 Platelet mean volume (Bld) [Entitic vol] 8.5 fL 6.6-10.1 [facility] Platelets Auto (Bld) [#/Vol] Ordered By: Eusebio Olivares on 03-09-2022 Platelets (Bld) [#/Vol] 209 10*3/uL 150-450 [facility] RBC Auto (Bld) [#/Vol]Ordere d By: Eusebio Olivares on 03-09-2022 RBC (Bld) [#/Vol] 3.14 10*6/uL 3.90-5.60 [facility] Serum or plasma calcium farida urement (mass/volume)Ordered By: Eusebio Olivares on 03-09-2022 Calcium [Mass/Vol] 8.1 mg/dL 8.2-10.2 [facility] Serum or plasma chloride trina surement (moles/volume)Ordered By: Eusebio Olivares on 03-09-2022 Chloride [Moles/Vol] 105 mmol/L 95-114 [facility] Serum or plasma glucose farida urement (mass/volume)Ordered By: Eusebio Olivares on 03-09-2022 Glucose [Mass/Vol] 237 mg/dL 70-100 [facility] Comment on above: ADA recommended refe [...] on 03-09-2022 Potassium [Moles/Vol] 4.2 mmol/L 3.5-5.1 [facility] Serum or plasma sodium measu rement (moles/volume)Ordered By: Eusebio Olivares on 03-09-2022 Sodium [Moles/Vol] 137 mmol/L 136-146 [facility] Serum or plasma total carbon dioxide measurement (moles/volume)Ordered By: Eusebio Olivares on 03-09-2022 CO2 [Moles/Vol] 24.6 mmol/L 22.0-30.0 [facility] Serum or plasma urea nitroge n measurement (mass/volume)Ordered By: Eusebio Olivares on 03-09-2022 Urea nitrogen [Mass/Vol] 39 mg/dL 9-23 [facility] Activated partial thrombopla stin time (aPTT) in platelet poor plasma by coagulation aOrdered By: Angel Mejía on 12-25-2021 aPTT Coag (PPP) [Time] 39.1 s 25.1-36.5 [facility] Albumin [Mass/volume] in Ser um or PlasmaOrdered By: Angel Mejía on 12-25-2021 Albumin [Mass/Vol] 2.1 g/dL 3.2-5.5 [facility] Albumin [Mass/Vol] 2.3 g/dL 2.9-4.4 [facility] Albumin/Protein.total in 24 hour Urine by ElectrophoresisOrdered By: Angel Mejía on 12-25-2021 Albumin Elph (24H U) [Mass fraction] 64.4 % . [facility] Automated erythrocytes count in urine sediment (number/area)Ordered By: Angel Mejía on 12-25-2021 RBC Auto (Urine sed) [#/Area] 20-49 [HPF] 0-4 [facility] Automated leukocytes count i n urine sediment (number/area)Ordered By: Angel Mejía on 12-25-2021 WBC Auto (Urine sed) [#/Area] 3-4 [HPF] 0-4 [facility] Bilirubin Test strip Ql (U)O rdered By: Angel Mejía on 12-25-2021 Bilirubin Ql (U) Negative Negative [facility] Blood hemoglobin measurement (mass/volume)Ordered By: Angel Mejía on 12-25-2021 Hemoglobin (Bld) [Mass/Vol] 10.6 g/dL 13.0-17.[address] [facility] [address] biopsyOrdered By: Varsha ricardo on 12-25-2021 Transferrin [Mass/Vol] 138 mg/dL 180-380 [facility] Color Auto (U)Ordered By: Ab yusra Mejía on 12-25-2021 Color (U) Yellow Yellow [facility] Creatinine and Glomerular fi ltration rate.predicted panel (S/P/Bld)Ordered By: Angel Mejía on 12-25-2021 Creatinine [Mass/Vol] 2.03 mg/dL 0.64-1.27 [facility] Erythrocyte distribution wid th Auto (RBC) [Ratio]Ordered By: Angel Mejía on 12-25-2021 Erythrocyte distribution width (RBC) [Ratio] 12.9 % 12.0-14.8 [facility] Estimated glomerular filtrat ion rate (GFR) non- AmericanOrdered By: Angel Mejía on 12-25-2021 GFR/1.73 sq M.predicted among non-blacks MDRD (S/P/Bld) [Vol rate/Area] 37 mL/Min [facility] Ferritin [Mass/volume] in Se rum or PlasmaOrdered By: Angel Mejía on 12-25-2021 Ferritin [Mass/Vol] 165.7 ng/mL 23.9-336.2 [facility] Folate [Mass/volume] in Seru m or PlasmaOrdered By: Angel Mejía on 12-25-2021 Folate [Mass/Vol] 11.1 ng/mL >5.9 [facility] Comment on above: Folate reference ran ge: >5.9 ng/ml The WHO technical consultation on folate and vitamin b12 deficiencies has determined that folate concentrations less than 4 ng/ml are considered deficient. Gamma globulin/Protein.total in 24 hour Urine by ElectrophoresisOrdered By: Angel Mejía on 12-25-2021 Gamma globulin Elph (24H U) [Mass fraction] 10.4 % . [facility] Hematocrit Auto (Bld) [Volum e fraction]Ordered By: Angel Mejía on 12-25-2021 Hematocrit (Bld) [Volume fraction] 30.1 % 38.8-50.0 [facility] Hepatitis B virus surface Ag [Presence] in Serum or Plasma by ImmunoassayOrdered By: Angel Mejía on 12-25-2021 HBV surface Ag IA Ql Negative Negative [facility] Comment on above: Performed at: [facility] [id number] Relay Assembler: Pablito Alexander PhD, Phone: [phone] IgA [Mass/volume] in Serum o r PlasmaOrdered By: Angel Mejía on 12-25-2021 IgA [Mass/Vol] 373 mg/dL 90-386 [facility] IgG [Mass/volume] in Serum o r PlasmaOrdered By: Angel Mejía on 12-25-2021 IgG [Mass/Vol] 801 mg/dL 603-1613 [facility] IgM [Mass/volume] in Serum o r PlasmaOrdered By: Angel Mejía on 12-25-2021 IgM [Mass/Vol] 284 mg/dL 20-172 [facility] Comment on above: Performed at: [email or web address] [address] [id number] Relay Assembler: Pablito Alexander PhD, Phone: [phone] Immunofixation for UrineOrde red By: Angel Mejía on 12-25-2021 Interpretation Immunofixation (U) [Interp] Comment: . [facility] Comment on above: Presence of monoclon al protein is unclear at this time. Suggest repeat in 3 to 6 months if clinically indicated. Performed at: [facility] [address] [id number] Relay Assembler: Pablito Alexander PhD, Phone: [phone] Immunoglobulin light chains. kappa.free [Mass/volume] in SerumOrdered By: Angel Georger on 12-25-2021 Immunoglobulin light chains.kappa.free (S) [Mass/Vol] 93.9 mg/L 3.3-19.4 [facility] Immunoglobulin light chains. kappa.free/Immunoglobulin light chains.lambda.free [MassOrdered By: Angel Joyce on 12-25-2021 Immunoglobulin light chains.kappa.free/Immun oglobulin light chains.lambda.free (S) [Mass ratio] 1.78 0.26-1.65 [facility] Comment on above: Performed at: [facility] [address] [id number] Relay Assembler: Pablito Alexander PhD, Phone: [phone] Immunoglobulin light chains. lambda.free [Mass/volume] in Serum or PlasmaOrdered By: Angel Georger on 12-25-2021 Immunoglobulin light chains.lambda.free [Mass/Vol] 52.7 mg/L 5.7-26.3 [facility] Iron [Mass/volume] in Serum or PlasmaOrdered By: Angel Joyce on 12-25-2021 Iron [Mass/Vol] 44 ug/dL 40-160 [facility] Iron binding capacity [Mass/ volume] in Serum or PlasmaOrdered By: Angel Joyce on 12-25-2021 Iron binding capacity [Mass/Vol] 193 ug/dL 255-450 [facility] Iron saturation [Mass Fracti on] in Serum or PlasmaOrdered By: Angel Joyce on 12-25-2021 Iron saturation [Mass fraction] 22.0 % 20-50 [facility] Ketones Auto test strip (U) [Mass/Vol]Ordered By: Angel Joyce on 12-25-2021 Ketones (U) [Mass/Vol] Negative Negative [facility] Laboratory - Chemistry and C hemistry - challengeOrdered By: Angel Mejía on 12-25-2021 Cobalamin (Vitamin B12) [Mass/Vol] 968 pg/mL 180-914 [facility] Magnesium [Mass/Vol] 2.1 mg/dL 1.6-2.6 [facility] Laboratory - CoagulationOrde red By: Anegl Mejía on 12-25-2021 PT Coag (PPP) [Time] 11.6 s 9.0-12.9 [facility] Laboratory - UrinalysisOrder ed By: Angel Mejía on 12-25-2021 Hyaline casts LM Ql (Urine sed) 0-8 [LPF] 0-8 [facility] MCH Auto (RBC) [Entitic mass ]Ordered By: Angel Mejía on 12-25-2021 MCH (RBC) [Entitic mass] 29.8 pg 27.5-35.2 [facility] MCHC Auto (RBC) [Mass/Vol]Or dered By: Angel Mejía on 12-25-2021 MCHC (RBC) [Mass/Vol] 35.1 g/dL 32.5-35.6 [facility] MCV Auto (RBC) [Entitic vol] Ordered By: Angel Mejía on 12-25-2021 MCV (RBC) [Entitic vol] 84.8 fL 83.5-101 [facility] Nitrite Test strip Ql (U)Ord ered By: Angel Mejía on 12-25-2021 Nitrite Ql (U) Negative Negative [facility] No Panel InformationOrdered By: Angel Mejía on 12-25-2021 25-Hydroxy Vitamin D Total < 7.0 ng/mL 30-100 [facility] Comment on above: VITAMIN D STATUS 25( [place])VITAMIN D RANGE (ng/mL) Deficient <20 Insufficient 20 to <30 Sufficient 30 to 100 Reference: Vanna MF,Chemo OGLESBY, Sergey SIMENTAL, et al. Evaluation,treatment, and prevention of vitamin D deficiency; an Endocrine Society clinical practice guideline. JCEM. 2010; 96(7):1911-30. Estimated GFR () 45 mL/Min [facility] Comment on above: GFR estimated refere nce range: According to KDOQI guidelines, <60 ml/min/1.73m2 is sufficient to diagnose a patient with chronic kidney disease. Pharmacy Creatinine Clearance (Chem N/A [facility] Protein Electrophoresis [place] Not observed g/dL Not Observed [facility] Protein Electrophoresis Note See comment . [facility] Comment on above: Protein electrophore sis scan will follow via computer, mail, or jewelry making instructor delivery. Performed at: [facility] [employer] [id number] Relay Assembler: Pablito Alexander PhD, Phone: [phone] Serum Immunofixation Comment: . [facility] Comment on above: Presence of monoclon al protein is unclear at this time. Suggest repeat in 3 to 6 months if clinically indicated. Urine Random Prot Electrophor Note See comment . [facility] Comment on above: Protein electrophore sis scan will follow via computer, mail, or jewelry making instructor delivery. Phosphate [Mass/volume] in S gretta or PlasmaOrdered By: Angel Mejía on 12-25-2021 Phosphate [Mass/Vol] 4.6 mg/dL 2.5-4.6 [facility] Platelet mean volume Auto (B ld) [Entitic vol]Ordered By: Angel Mejía on 12-25-2021 Platelet mean volume (Bld) [Entitic vol] 8.9 fL 6.6-10.1 [facility] Platelet poor plasma interna tional normalized ratio (INR) by coagulation assay (relatOrdered By: Angel Mejía on 12-25-2021 INR Coag (PPP) [Relative time] 1.0 {INR} [facility] Comment on above: INR Therapeutic Rang [...] 12-25-2021 Platelets (Bld) [#/Vol] 280 10*3/uL 150-450 [facility] Protein Auto test strip (U) [Mass/Vol]Ordered By: Angel Mejía on 12-25-2021 Protein (U) [Mass/Vol] mg/dL Negative [facility] Protein [Mass/volume] in Ser um or PlasmaOrdered By: Angel Mejía on 12-25-2021 Protein [Mass/Vol] 5.5 g/dL 6.0-8.5 [facility] Protein [Mass/volume] in Uri neOrdered By: Angel Mejía on 12-25-2021 Protein (U) [Mass/Vol] 710.3 mg/dL Not Estab. [facility] Comment on above: Results confirmed on dilution. Protein.monoclonal/Protein.t otal in 24 hour Urine by ElectrophoresisOrdered By: Angel Mejía on 12-25-2021 Protein.monoclonal Elph (24H U) [Mass fraction] Comment: % Not Observed [facility] Comment on above: ASYMMETRICAL GAMMA RBC Auto (Bld) [#/Vol]Ordere d By: Angel Mejía on 12-25-2021 RBC (Bld) [#/Vol] 3.55 10*6/uL 3.90-5.60 [facility] Serum globulin measurement ( mass/volume)Ordered By: Angel Mejía on 12-25-2021 Globulin (S) [Mass/Vol] 3.2 g/dL 2.2-3.9 [facility] Serum or plasma albumin/glob ulin mass ratioOrdered By: Angel Mejía on 12-25-2021 Albumin/Globulin [Mass ratio] 0.7 {ratio} 0.7-1.7 [facility] Serum or plasma alpha 1 glob ulin measurement by electrophoresis (mass/volume)Ordered By: Angel Mejía on 12-25-2021 Alpha 1 globulin Elph [Mass/Vol] 0.2 g/dL 0.0-0.4 [facility] Serum or plasma alpha 2 glob ulin measurement by electrophoresis (mass/volume)Ordered By: Angel Mejía on 12-25-2021 Alpha 2 globulin Elph [Mass/Vol] 1.2 g/dL 0.4-1.0 [facility] Serum or plasma beta globuli n measurement by electrophoresis (mass/volume)Ordered By: Angel Mejía on 12-25-2021 Beta globulin Elph [Mass/Vol] 0.9 g/dL 0.7-1.3 [facility] Serum or plasma calcium farida urement (mass/volume)Ordered By: Angel Mejía on 12-25-2021 Calcium [Mass/Vol] 8.3 mg/dL 8.2-10.2 [facility] Serum or plasma chloride trina surement (moles/volume)Ordered By: Angel Mejía on 12-25-2021 Chloride [Moles/Vol] 97 mmol/L 95-114 [facility] Serum or plasma gamma globul in measurement by electrophoresis (mass/volume)Ordered By: Angel Mejía on 12-25-2021 Gamma globulin Elph [Mass/Vol] 0.9 g/dL 0.4-1.8 [facility] Serum or plasma glucose farida urement (mass/volume)Ordered By: Angel Mejía on 12-25-2021 Glucose [Mass/Vol] 392 mg/dL 70-100 [facility] Comment on above: ADA recommended refe rence range Random Glucose Reference Range is dependent on time and content of last meal. Glucose of more than 200 mg/dL in a nonstressed, ambulatory subject supports the diagnosis of Diabetes Mellitus. Serum or plasma intact parat hyroid hormone measurement (mass/volume)Ordered By: Angel Mejía on 12-25-2021 Parathyrin.intact [Mass/Vol] 147.3 pg/mL 12-88 [facility] Serum or plasma potassium me asurement (moles/volume)Ordered By: Angel Mejía on 12-25-2021 Potassium [Moles/Vol] 4.2 mmol/L 3.5-5.1 [facility] Serum or plasma sodium measu rement (moles/volume)Ordered By: Angel Mejía on 12-25-2021 Sodium [Moles/Vol] 130 mmol/L 136-146 [facility] Serum or plasma total carbon dioxide measurement (moles/volume)Ordered By: Angel Mejía on 12-25-2021 CO2 [Moles/Vol] 24.4 mmol/L 22.0-30.0 [facility] Serum or plasma urea nitroge n measurement (mass/volume)Ordered By: Angel Mejía on 12-25-2021 Urea nitrogen [Mass/Vol] 35 mg/dL 9-23 [facility] Specific gravity Auto test s trip (U) [Rel density]Ordered By: Angel Mejía on 12-25-2021 Specific gravity (U) [Rel density] 1.026 1.001-1.030 [facility] Squamous epithelial cells de tection in urine sediment by light microscopyOrdered By: Angel Mejía on 12-25-2021 Epithelial cells.squamous LM Ql (Urine sed) 1-2 [HPF] 0-2 [facility] Urine alpha 1 globulin/total protein by electrophoresisOrdered By: Angel Mejía on 12-25-2021 Alpha 1 globulin Elph (U) [Mass fraction] 7.4 % . [facility] Urine alpha 2 globulin/total protein ratio by electrophoresisOrdered By: Angel Mejía on 12-25-2021 Alpha 2 globulin Elph (U) [Mass fraction] 6.8 % . [facility] Urine bacteria detection by automated methodOrdered By: Angel Mejía on 12-25-2021 Bacteria Auto Ql (U) None seen None Seen [facility] Urine beta globulin measurem ent by electrophoresis (mass/volume)Ordered By: Angel Mejía on 12-25-2021 Beta globulin Elph (U) [Mass/Vol] 11.0 % . [facility] Urine clarity by refractomet ry automatedOrdered By: Angel Mejía on 12-25-2021 Clarity Refractometry automated (U) Clear Clear [facility] Urine glucose measurement by automated test strip (mass/volume)Ordered By: Angel Mejía on 12-25-2021 Glucose Auto test strip (U) [Mass/Vol] >=1000 mg/dL Normal [facility] Urine hemoglobin detection b y automated test stripOrdered By: Angel Mejía on 12-25-2021 Hemoglobin Auto test strip Ql (U) 1+ Negative [facility] Urine leukocyte esterase det ection by automated test stripOrdered By: Angel Mejía on 12-25-2021 Leukocyte esterase Auto test strip Ql (U) Negative Negative [facility] Urobilinogen Auto test strip (U) [Mass/Vol]Ordered By: Angel Mejía on 12-25-2021 Urobilinogen (U) [Mass/Vol] Normal mg/dL Normal [facility] WBC Auto (Bld) [#/Vol]Ordere d By: Angel Mejía on 12-25-2021 WBC (Bld) [#/Vol] 8.1 10*3/uL 4.1-10.5 [facility] pH Auto test strip (U)Ordere d By: Angel Mejía on 12-25-2021 pH (U) 5.5 [pH] 5.0-9.0 [facility] Tobacco Screening.on 022 Adult depression screening assessment No [facility] [employer] DO Work Phone: Tobacco use status CPHS a) Yes M [facility] [employer] DO Work Phone: Tobacco Screening. Yes [facility] [employer] DO Work Phone: MARYAM EIA W/REFLEX 5 BIOMARKER Son 10-24-2021 MARYAM Direct Positive Abnormal Negative [facility] Comment on above: Performed By: #### A NARF #### [facility] [address] [place] [address] Dr. Sonam Godinez Anti-DNA (DS) Ab Qn 1 IU/mL Normal 0-9 [facility] Comment on above: Result Comment: Nega tive <5 Equivocal 5 - 9 Positive >9 Performed By: #### A NARF #### [facility] [address] [place] [address] Dr. Sonam Godinez [employer] DESIGN ENGINEER Antibodies 1.4 AI Critically high 0.0-0.9 [facility] Comment on above: Performed By: #### A NARF #### [facility] [address] [place] [address] Dr. Sonam Godinez SEE BELOW: Comment Normal [facility] Comment on above: Result Comment: Auto antibody [...] Sm (anti-Anderson) SLE 15 - 30% --------- TIRE DESIGN ENGINEER Mixed Connective Tissue Disease 95% (U1 nRNP, SLE 30 - 50% anti-ribonucleoprotein) Polymyositis and/or Dermatomyositis 20% --------- Scl-70 (antiDNA Scleroderma (diffuse) 20 - 35% topoisomerase) Crest 13% --------- Cony-1 Polymyositis and/or Dermatomyositis 20 - 40% --------- Centromere B Scleroderma - Crest variant 80% Performed By: #### A NARF #### [facility] [address] [place] [address] Dr. Sonam Godinez Sjogrnirmala'monet Anti-SS-A <0.2 Normal 0.0-0.9 [facility] Comment on above: Performed By: #### A NARF #### [facility] [address] [place] [address] Dr. Sonam Godinez Sjogrnirmala's Anti-SS-B <0.2 Normal 0.0-0.9 [facility] Comment on above: Performed By: #### A NARF #### [facility] [address] [place] [address] Dr. Sonam Godinez Anderson Antibodies <0.2 Normal 0.0-0.9 [facility] Comment on above: Performed By: #### A NARF #### [facility] [address] [place] [address] Dr. Sonam Godinez ALBUMINon 10-23-2021 Albumin [Mass/Vol] 1.8 g/dL Critically low 3.5-5.0 [facility] e [facility] Comment on above: Performed By: #### A LB, LIPID, DLDL, BMP #### [facility] [address] [address] [address] Sonam Godinez DIRECT LDLon 10-23-2021 Cholesterol in LDL [Mass/Vol] 164 mg/dL Normal [facility] Comment on above: Performed By: #### A LB, LIPID, DLDL, BMP #### [facility] [address] [address] [address] Sonam Godinez DLDL NORMAL SEE BELOW Normal [facility] Comment on above: Result Comment: <100 mg/dl OPTIMAL 100 - 129 mg/dl NEAR OR ABOVE OPTIMAL 130 - 159 mg/dl BORDERLINE HIGH 160 - 189 mg/dl HIGH >190 mg/dl VERY HIGH Performed By: #### A LB, LIPID, DLDL, BMP #### [facility] [address] [address] [address] Sonam Godinez GLYCOHEMOGLOBIN A1Con 2021 ADA RECOMMENDATION ADA THERAPEUTIC TARG ET 6.0 - 7.0 ACTION SUGGESTED > 7.0 Normal [facility] Comment on above: Performed By: #### A 1C #### [facility] [address] [place] [address] Dr. Sonam Godinez Glucose [Mass/Vol] 157 mg/dL Normal [facility] Comment on above: Performed By: #### A 1C #### [facility] [address] [place] [address] Dr. Sonam Godinez HbA1c (Bld) [Mass fraction] 7.1 % Critically high <=6.0 [facility] Comment on above: Performed By: #### A 1C #### [facility] [address] [place] [address] Dr. Sonam Godinez LIPID PROFILEon 10-23-2021 CHOL-HDL RATIO NORM SEE BELOW Normal [facility] Comment on above: Result Comment: 3.3 - 4.4 LOW RISK 4.4 - 7.1 AVERAGE RISK 7.1 - 11.0 MODERATE RISK >11.0 HIGH RISK Performed By: #### A LB, LIPID, DLDL, BMP #### [facility] [address] [place] [address] Dr. Sonam Godinez Cholesterol [Mass/Vol] 312 mg/dL Critically high <=200 [facility] Comment on above: Performed By: #### A LB, LIPID, DLDL, BMP #### [facility] [address] [place] [address] Dr. Sonam Godinez Cholesterol in HDL [Mass/Vol] 40 mg/dL Normal [facility] Comment on above: Performed By: #### A LB, LIPID, DLDL, BMP #### [facility] [address] [place] [address] Dr. Sonam Godinez Cholesterol.total/Rosalind sterol in HDL [Mass ratio] 7.8 {ratio} Normal [facility] Comment on above: Performed By: #### A LB, LIPID, DLDL, BMP #### [facility] [address] [place] [address] Dr. Sonam Godinez HDL NORMAL > or = 60 mg/dl - LO W CARDIOVASCULAR RISK <40 mg/dl - HIGH CARDIOVASCULAR RISK Normal [facility] Comment on above: Performed By: #### A LB, LIPID, DLDL, BMP #### [facility] [address] [place] [address] Dr. Sonam Godinez LDL CALC NORMAL SEE BELOW Normal [facility] Comment on above: Result Comment: <100 mg/dl OPTIMAL 100 - 129 mg/dl NEAR OR ABOVE OPTIMAL 130 - 159 mg/dl BORDERLINE HIGH 160 - 189 mg/dl HIGH >190 mg/dl VERY HIGH Performed By: #### A LB, LIPID, DLDL, BMP #### [facility] [address] [place] [address] Dr. Sonam Godinez Triglyceride [Mass/Vol] 494 mg/dL Critically high <=150 [facility] Comment on above: Performed By: #### A LB, LIPID, DLDL, BMP #### [facility] [address] [place] [address] Dr. Sonam Godinez PROF CHEM 8 (BAS METB)on Anion gap [Moles/Vol] 8.8 mmol/L Normal [facility] Comment on above: Performed By: #### A LB, LIPID, DLDL, BMP #### [facility] [address] [address] [address] Sonam Godinez Calcium [Mass/Vol] 7.8 mg/dL Critically low 8.4-10.2 Th e [facility] Comment on above: Performed By: #### A LB, LIPID, DLDL, BMP #### [facility] [address] [place] [address] Dr. Sonam Godinez Chloride [Moles/Vol] 101 mmol/L Normal 98-107 [facility] Comment on above: Performed By: #### A LB, LIPID, DLDL, BMP #### [facility] [address] [place] [address] Dr. Sonam Godinez CO2 [Moles/Vol] 27.1 mmol/L Normal 22.0-30.0 [facility] Comment on above: Performed By: #### A LB, LIPID, DLDL, BMP #### [facility] [address] [place] [address] Dr. Sonam Godinez Creatinine [Mass/Vol] 1.66 mg/dL Critically high 0.66-1.25 [facility] Comment on above: Performed By: #### A LB, LIPID, DLDL, BMP #### [facility] [address] [place] [address] Dr. Sonam Godinez EGFR-AF MACANESE 57 mL/min/1.73m2 Critically low >=60 [facility] Comment on above: Performed By: #### A LB, LIPID, DLDL, BMP #### [facility] [address] [address] [address] Sonam Godinez EGFR-NON AF MACANESE 47 mL/min/1.73m2 Critically low >=60 [facility] Comment on above: Performed By: #### A LB, LIPID, DLDL, BMP #### [facility] [address] [address] [address] Sonam Godinez Glucose [Mass/Vol] 240 mg/dL Critically high 74-106 T [facility] Comment on above: Performed By: #### A LB, LIPID, DLDL, BMP #### [facility] [address] [address] [address] Sonam Godinez Potassium [Moles/Vol] 3.9 mmol/L Normal 3.4-5.0 [facility] Comment on above: Performed By: #### A LB, LIPID, DLDL, BMP #### [facility] [address] [place] [address] Dr. Sonam Godinez Sodium [Moles/Vol] 133 mmol/L Critically low 137-145 Th [facility] Comment on above: Performed By: #### A LB, LIPID, DLDL, BMP #### [facility] [address] [place] [address] Dr. Sonam Godinez Urea nitrogen [Mass/Vol] 37.0 mg/dL Critically high 9.0-20.0 [facility] Comment on above: Performed By: #### A LB, LIPID, DLDL, BMP #### [facility] [address] [place] [address] Dr. Sonam Godinez Urea nitrogen/Creatinine [Mass ratio] 22.3 mg/mg Normal [facility] Comment on above: Performed By: #### A LB, LIPID, DLDL, BMP #### [facility] [address] [place] [address] Dr. Sonam Godinez URINE T PROTEIN CREAT RATIOo n 10-23-2021 UR TOTAL PROTEIN >200.0 Critically high <=12.0 [facility] Comment on above: Performed By: #### U RTPCR #### [facility] [address] [place] [address] Dr. Sonam Godinez URINE CREAT 52.73 mg/dL Normal 20.00-300.00 [facility] Comment on above: Performed By: #### U RTPCR #### [facility] [address] [place] [address] Dr. Sonam Godinez US KIDNEYS BLADDERon 022 US KIDNEYS BLADDER EXAMINATION: US KIDKevin EYS BLADDER HISTORY: Renal disorder associated with type [...] by: JEREL MEJIA Date: 2021-10-23 11:27 Normal [facility] ED NOTEon 10-01-2021 ED NOTE HNO ID: [id number] Author: Gerald Ellington MD Service: Emergency Medicine Author Type: Resident Type: ED Notes Filed: 10/01/2021 6:37 PM Note Text: CM for AM 23M sent from [facility] for ophtho c/s for elevated L [...] BID, the other two should be [facility] ophtho f/u at 1230 ([address] [facility], [facility]) Others' Documentation Sun Oct 01, [...] Gerald Ellington MD Emergency Medicine Resident 10/01/21 [facility] PROV NOTEon 10-01-2021 ED PROV NOTE HNO ID: [id number] Author: Anum Tristan MD Service: Ophthalmology Author [...] AM -------- OPHTHALMOLOGY CONSULTATION REPORT Yoel Werner [id number] October 01, 2021 7:14 AM REASON FOR [...] not flat on back - F/u in [place] with Dr. Zita Allen tomorrow at 12:30 - ophthalmology will arrange appointment 2. Proliferative diabetic retinopathy, both eyes - Managed by Dr. Gonzales in [place]; next f/u appointment 09/05 per patient Case discussed with glaucoma fellow Dr. Cherry and retina staff Dr. Aguilar. HPI This is a 36 year old male who is transferred to [facility] for elevated IOP, left eye, in [...] [facility] (pt saw him in [place], [place]). The patient was doing well at his POD1 visit but has not followed up since due to being dx with COVID around the time of surgery. His next f/u visit is scheduled for this 10/06. He was initially on PF and an unknown abx drop, both QID, in the operative eye, but he has been off all gtts since Saturday. The patient reports that, over the past day and a half, he developed severe, throbbing left periocular pain, which prompted his visit to [facility] ED, where he was found to have IOP in the mid-50s. The [facility] ED was unable to get in [...] was made to transfer the patient to [facility] Main ED for further assessment and management. CT at [facility] was remarkable only for vitreous opacities, c/w exam. The patient has a history of intravitreal injections (uncertain agent, presumably anti-VEGF) with his previous retina specialist in [place] and, most recently, received anti-VEGF injections OU [...] +2 Tonometr (more content not included)... Normal [facility] ED PROV NOTE HNO ID: [id number] Author: Govind Us MD Service: Emergency Medicine [...] DMII and macular degeneration. He is from [place]; recently moved back to [place] in [facility]. About a month ago had outpatient ophthalmology evaluation and was found to have left retinal detachment. He had surgery for left eye retinal detachment on 09/17/2021. States yesterday he developed severe left eye pain. he tried using his eye drops at home for elevated pressures w/out improvement. Went to [facility] ED- found to have elevated IOP. Patient reports left eye pressures were elevated near 50. He received PO meds and ophthalmologic drops, and was sent to [facility] for optho consult. He reports minimal vision [...] 0530 10/01/21 0534 10/01/21 0534 10/01/21 0534 10/01/21 0530 -- -- 180/87 71 37.1 ?C (98.8 [...] SIGNATURE: MD Allyson Blanc MD Resident 10/01/21 07 ATTENDING NOTE: have personally performed a face to face assessment of the patient an (more content not included)... Normal [facility] Vital Signs Date Time Vital Sign Value Performing Clinician Facility 06-01-2025 12:00-0400 Body temperature 98.3 [degF] Eusebio Olivares DO Work Phone: [facility] 06-01-2025 12:00-0400 Diastolic blood pressure 86 mm[Hg] Eusebio Ball DO Work Phone: [facility] 06-01-2025 12:00-0400 Heart rate 71 /min Eusebio Ball DO Work Phone: [facility] 06-01-2025 12:00-0400 Respiratory rate 18 /min Eusebio Ball DO Work Phone: [facility] 06-01-2025 12:00-0400 SaO2% (BldA) [Mass fraction] 97 % Eusebio Ball DO Work Phone: [facility] 06-01-2025 12:00-0400 Systolic blood pressure 178 mm[Hg] Eusebio Ball DO Work Phone: [facility] 06-01-2025 06:00-0400 Body weight 78.3 kg Eusebio Ball DO Work Phone: [facility] 05-31-2025 22:38-0400 Body height 185.42 cm Eusebio Ball DO Work Phone: [facility] 05-31-2025 21:56-0400 Diastolic blood pressure 81 mm[Hg] Eusebio Ball DO Work Phone: [facility] 05-31-2025 21:56-0400 Heart rate 69 /min Eusebio Ball DO Work Phone: [facility] 05-31-2025 21:56-0400 Respiratory rate 16 /min Eusebio Ball DO Work Phone: [facility] 05-31-2025 21:56-0400 SaO2% (BldA) [Mass fraction] 98 % Eusebio Ball DO Work Phone: [facility] 05-31-2025 21:56-0400 Systolic blood pressure 169 mm[Hg] Eusebio Ball DO Work Phone: [facility] 05-31-2025 17:23-0400 Body height 185.42 cm Eusebio Ball DO Work Phone: [facility] 05-31-2025 17:23-0400 Body temperature 97.9 [degF] Eusebio Ball DO Work Phone: [facility] 05-31-2025 17:23-0400 Body weight 78.6 kg Eusebio Ball DO Work Phone: [facility] 05-30-2025 00:09-0400 Diastolic blood pressure 100 mm[Hg] Eusebio Ball DO Work Phone: [facility] 05-30-2025 00:09-0400 Heart rate 73 /min Eusebio Ball DO Work Phone: [facility] 05-30-2025 00:09-0400 Respiratory rate 18 /min Eusebio Ball DO Work Phone: [facility] 05-30-2025 00:09-0400 SaO2% (BldA) [Mass fraction] 98 % Eusebio Ball DO Work Phone: [facility] 05-30-2025 00:09-0400 Systolic blood pressure 214 mm[Hg] Eusebio Ball DO Work Phone: [facility] 05-29-2025 19:59-0400 Body height 185.42 cm Eusebio Ball DO Work Phone: [facility] 05-29-2025 19:59-0400 Body temperature 98.3 [degF] Eusebio Ball DO Work Phone: [facility] 05-29-2025 19:59-0400 Body weight 78 kg Eusebio Ball DO Work Phone: [facility] 05-27-2025 11:36-0400 Diastolic blood pressure 80 mm[Hg] Brianna Gomez DO Work Phone: [facility] 05-27-2025 11:36-0400 Systolic blood pressure 174 mm[Hg] Brianna Gomez DO Work Phone: [facility] 05-27-2025 11:06-0400 Body height 185.4 cm Brianna Gomez DO Work Phone: [facility] 05-27-2025 11:06-0400 Body mass index (BMI) [Ratio] 23.22 kg/m2 Brianna Gomez DO Work Phone: [facility] 05-27-2025 11:06-0400 Body weight 79.83 kg Brianna Gomez DO Work Phone: [facility] 05-27-2025 11:06-0400 Heart rate 72 /min Brianna Gomez DO Work Phone: [facility] 05-06-2025 06:46-0400 Diastolic blood pressure 77 mm[Hg] Eusebio Ball DO Work Phone: [facility] 05-06-2025 06:46-0400 Heart rate 63 /min Eusebio Ball DO Work Phone: [facility] 05-06-2025 06:46-0400 Respiratory rate 18 /min Eusebio Ball DO Work Phone: [facility] 05-06-2025 06:46-0400 SaO2% (BldA) [Mass fraction] 95 % Eusebio Ball DO Work Phone: [facility] 05-06-2025 06:46-0400 Systolic blood pressure 162 mm[Hg] Eusebio Ball DO Work Phone: [facility] 05-05-2025 22:31-0400 Body height 185.42 cm Eusebio Ball DO Work Phone: [facility] 05-05-2025 22:31-0400 Body temperature 97.9 [degF] Eusebio Ball DO Work Phone: [facility] 05-05-2025 22:31-0400 Body weight 80 kg Eusebio Ball DO Work Phone: [facility] 04-22-2025 10:41-0400 Body height 185.42 cm Eusebio Ball DO Work Phone: [facility] 04-22-2025 10:41-0400 Body mass index (BMI) [Ratio] 23.3 kg/m2 Eusebio Ball DO Work Phone: [facility] 04-22-2025 10:41-0400 Body weight 80.28 kg Eusebio Ball DO Work Phone: [facility] 04-22-2025 10:41-0400 Diastolic blood pressure 90 mm[Hg] Eusebio Ball DO Work Phone: [facility] 04-22-2025 10:41-0400 Heart rate 79 /min Eusebio Ball DO Work Phone: [facility] 04-22-2025 10:41-0400 Respiratory rate 12 /min Eusebio Ball DO Work Phone: [facility] 04-22-2025 10:41-0400 Systolic blood pressure 170 mm[Hg] Eusebio Ball DO Work Phone: [facility] 04-15-2025 07:50-0400 Body height 182.[address] 04-15-2025 07:50-0400 Body mass index (BMI) [Ratio] 23.06 kg/m2 [address] 04-15-2025 07:50-0400 Body weight 77.[address] 04-15-2025 07:50-0400 Diastolic blood pressure 88 mm[Hg] [address] 04-15-2025 07:50-0400 Systolic blood pressure 174 mm[Hg] [address] 04-13-2025 14:20-0400 Diastolic blood pressure 87 mm[Hg] Eusebio Ball DO Work Phone: [facility] 04-13-2025 14:20-0400 Heart rate 66 /min Eusebio Ball DO Work Phone: [facility] 04-13-2025 14:20-0400 Respiratory rate 16 /min Eusebio Ball DO Work Phone: [facility] 04-13-2025 14:20-0400 SaO2% (BldA) [Mass fraction] 95 % Eusebio Ball DO Work Phone: [facility] 04-13-2025 14:20-0400 Systolic blood pressure 165 mm[Hg] Eusebio Ball DO Work Phone: [facility] 04-13-2025 12:13-0400 Body height 185.42 cm Eusebio Ball DO Work Phone: [facility] 04-13-2025 12:13-0400 Body weight 75 kg Eusebio Ball DO Work Phone: [facility] 04-01-2025 [id number] Body height 185.42 cm Eusebio Ball DO Work Phone: [facility] 04-01-2025 12:06-0400 Body mass index (BMI) [Ratio] 22.1 kg/m2 Eusebio Ball DO Work Phone: [facility] 04-01-2025 12:06-0400 Body temperature 97.2 [degF] Eusebio Ball DO Work Phone: [facility] 04-01-2025 [id number] Body weight 76 kg Eusebio Ball DO Work Phone: [facility] 04-01-2025 12:06-0400 Diastolic blood pressure 96 mm[Hg] Eusebio Ball DO Work Phone: [facility] 04-01-2025 12:06-0400 Heart rate 65 /min Eusebio Ball DO Work Phone: [facility] 04-01-2025 12:06-0400 SaO2% (BldA) [Mass fraction] 97 % Eusebio Ball DO Work Phone: [facility] 04-01-2025 12:06-0400 Systolic blood pressure 160 mm[Hg] Eusebio Ball DO Work Phone: [facility] 01-21-2025 21:26-0400 Body temperature 97.8 [degF] Eusebio Ball DO Work Phone: [facility] 01-21-2025 21:26-0400 Diastolic blood pressure 80 mm[Hg] Eusebio Ball DO Work Phone: [facility] 01-21-2025 21:26-0400 Heart rate 61 /min Eusebio Ball DO Work Phone: [facility] 01-21-2025 21:26-0400 Respiratory rate 18 /min Eusebio Ball DO Work Phone: [facility] 01-21-2025 21:26-0400 SaO2% (BldA) [Mass fraction] 97 % Eusebio Ball DO Work Phone: [facility] 01-21-2025 21:26-0400 Systolic blood pressure 163 mm[Hg] Eusebio Ball DO Work Phone: [facility] 01-21-2025 11:09-0400 Body height 185.42 cm Eusebio Ball DO Work Phone: [facility] 01-21-2025 11:09-0400 Body weight 78 kg Eusebio Ball DO Work Phone: [facility] 01-12-2025 14:50-0400 Body height 185.42 cm Eusebio Ball DO Work Phone: [facility] 01-12-2025 14:50-0400 Body mass index (BMI) [Ratio] 22.4 kg/m2 Eusebio Ball DO Work Phone: [facility] 01-12-2025 14:50-0400 Body weight 77.11 kg Eusebio Ball DO Work Phone: [facility] 01-12-2025 14:50-0400 Diastolic blood pressure 86 mm[Hg] Eusebio Ball DO Work Phone: [facility] 01-12-2025 14:50-0400 Heart rate 68 /min Eusebio Ball DO Work Phone: [facility] 01-12-2025 14:50-0400 Respiratory rate 12 /min Eusebio Ball DO Work Phone: [facility] 01-12-2025 14:50-0400 Systolic blood pressure 179 mm[Hg] Eusebio Ball DO Work Phone: [facility] 12-17-2024 02:11-0400 Diastolic blood pressure 81 mm[Hg] Eusebio Ball DO Work Phone: [facility] 12-17-2024 02:11-0400 Heart rate 77 /min Eusebio Ball DO Work Phone: [facility] 12-17-2024 02:11-0400 Respiratory rate 18 /min Eusebio Ball DO Work Phone: [facility] 12-17-2024 02:11-0400 SaO2% (BldA) [Mass fraction] 95 % Eusebio Ball DO Work Phone: [facility] 12-17-2024 02:11-0400 Systolic blood pressure 159 mm[Hg] Eusebio Ball DO Work Phone: [facility] 12-16-2024 23:46-0400 Body height 185.42 cm Eusebio Ball DO Work Phone: [facility] 12-16-2024 23:46-0400 Body temperature 98.4 [degF] Eusebio Ball DO Work Phone: [facility] 12-16-2024 23:46-0400 Body weight 78 kg Eusebio Ball DO Work Phone: [facility] 12-10-2024 10:42-0400 Body height 182.9 cm David Berg DPM Work Phone: [facility] 12-10-2024 10:42-0400 Body mass index (BMI) [Ratio] 21.16 kg/m2 David Berg DPM Work Phone: [facility] 12-10-2024 10:42-0400 Body weight 70.76 kg David Berg DPM Work Phone: [facility] 12-10-2024 10:42-0400 Respiratory rate 18 /min David Berg DPM Work Phone: [facility] 11-24-2024 11:46-0400 Body height 182.9 cm Brianna Gomez DO Work Phone: [facility] 11-24-2024 11:46-0400 Body mass index (BMI) [Ratio] 23.06 kg/m2 Brianna Gomez DO Work Phone: [facility] 11-24-2024 11:46-0400 Body weight 77.11 kg Brianna Gomez DO Work Phone: [facility] 11-24-2024 11:46-0400 Diastolic blood pressure 80 mm[Hg] Brianna Gomez DO Work Phone: [facility] 11-24-2024 11:46-0400 Heart rate 68 /min Brianna Gomez DO Work Phone: [facility] 11-24-2024 11:46-0400 Systolic blood pressure 124 mm[Hg] Brianna Gomez DO Work Phone: [facility] 11-02-2024 12:53-0400 Body temperature 98.1 [degF] Eusebio Ball DO Work Phone: [facility] 11-02-2024 12:53-0400 Diastolic blood pressure 67 mm[Hg] Eusebio Ball DO Work Phone: [facility] 11-02-2024 12:53-0400 Heart rate 71 /min Eusebio Ball DO Work Phone: [facility] 11-02-2024 12:53-0400 Respiratory rate 18 /min Eusebio Ball DO Work Phone: [facility] 11-02-2024 12:53-0400 SaO2% (BldA) [Mass fraction] 99 % Eusebio Ball DO Work Phone: [facility] 11-02-2024 12:53-0400 Systolic blood pressure 149 mm[Hg] Eusebio Ball DO Work Phone: [facility] 11-02-2024 05:45-0400 Body weight 77.3 kg Eusebio Ball DO Work Phone: [facility] 11-01-2024 23:28-0400 Diastolic blood pressure 85 mm[Hg] Eusebio Ball DO Work Phone: [facility] 11-01-2024 23:28-0400 Heart rate 71 /min Eusebio Ball DO Work Phone: [facility] 11-01-2024 23:28-0400 Systolic blood pressure 179 mm[Hg] Eusebio Ball DO Work Phone: [facility] 11-01-2024 22:26-0400 Respiratory rate 13 /min Eusebio Ball DO Work Phone: [facility] 11-01-2024 22:26-0400 SaO2% (BldA) [Mass fraction] 98 % Eusebio Ball DO Work Phone: [facility] 11-01-2024 20:27-0400 Body height 185.42 cm Eusebio Ball DO Work Phone: [facility] 11-01-2024 20:27-0400 Body temperature 97.8 [degF] Eusebio Ball DO Work Phone: [facility] 11-01-2024 20:27-0400 Body weight 76.6 kg Eusebio Ball DO Work Phone: [facility] 10-30-2024 08:17-0400 Body temperature 97.6 [degF] Eusebio Ball DO Work Phone: [facility] 10-30-2024 08:17-0400 Diastolic blood pressure 73 mm[Hg] Eusebio Ball DO Work Phone: [facility] 10-30-2024 08:17-0400 Heart rate 60 /min Eusebio Ball DO Work Phone: [facility] 10-30-2024 08:17-0400 Respiratory rate 20 /min Eusebio Ball DO Work Phone: [facility] 10-30-2024 08:17-0400 SaO2% (BldA) [Mass fraction] 100 % Eusebio Ball DO Work Phone: [facility] 10-30-2024 08:17-0400 Systolic blood pressure 142 mm[Hg] Eusebio Ball DO Work Phone: [facility] 10-30-2024 08:13-0400 Body height 185.42 cm Eusebio Ball DO Work Phone: [facility] 10-30-2024 08:13-0400 Body weight 74.6 kg Eusebio Ball DO Work Phone: [facility] 10-14-2024 13:43-0500 Body height 185.42 cm Eusebio Ball DO Work Phone: [facility] 10-14-2024 13:43-0500 Body mass index (BMI) [Ratio] 21.4 kg/m2 Eusebio Ball DO Work Phone: [facility] 10-14-2024 13:43-0500 Body weight 73.5 kg Eusebio Ball DO Work Phone: [facility] 10-14-2024 13:43-0500 Diastolic blood pressure 69 mm[Hg] Eusebio Ball DO Work Phone: [facility] 10-14-2024 13:43-0500 Heart rate 78 /min Eusebio Ball DO Work Phone: [facility] 10-14-2024 13:43-0500 Respiratory rate 12 /min Eusebio Ball DO Work Phone: [facility] 10-14-2024 13:43-0500 Systolic blood pressure 130 mm[Hg] Eusebio Ball DO Work Phone: [facility] 09-17-2024 16:44-0500 Heart rate 66 /min Eusebio Ball DO Work Phone: [facility] 09-17-2024 16:44-0500 Respiratory rate 20 /min Eusebio Ball DO Work Phone: [facility] 09-17-2024 16:23-0500 Body height 185.42 cm Eusebio Ball DO Work Phone: [facility] 09-17-2024 16:00-0500 Body temperature 98.4 [degF] Eusebio Ball DO Work Phone: [facility] 09-17-2024 16:00-0500 Diastolic blood pressure 75 mm[Hg] Eusebio Ball DO Work Phone: [facility] 09-17-2024 16:00-0500 SaO2% (BldA) [Mass fraction] 96 % Eusebio Ball DO Work Phone: [facility] 09-17-2024 16:00-0500 Systolic blood pressure 147 mm[Hg] Eusebio Ball DO Work Phone: [facility] 09-17-2024 04:15-0500 Body weight 72 kg Eusebio Ball DO Work Phone: [facility] 09-16-2024 21:38-0500 Inhaled oxygen flow rate 2 L/min Eusebio Ball DO Work Phone: [facility] 09-16-2024 16:45-0500 Heart rate 77 /min Eusebio Ball DO Work Phone: [facility] 09-16-2024 16:45-0500 Respiratory rate 20 /min Eusebio Ball DO Work Phone: [facility] 09-16-2024 16:21-0500 Body height 185.42 cm Eusebio Ball DO Work Phone: [facility] 09-16-2024 16:21-0500 Body temperature 98.7 [degF] Eusebio Ball DO Work Phone: [facility] 09-16-2024 16:21-0500 Body weight 71.6 kg Eusebio Ball DO Work Phone: [facility] 09-16-2024 16:21-0500 Diastolic blood pressure 85 mm[Hg] Eusebio Ball DO Work Phone: [facility] 09-16-2024 16:21-0500 SaO2% (BldA) [Mass fraction] 98 % Eusebio Ball DO Work Phone: [facility] 09-16-2024 16:21-0500 Systolic blood pressure 176 mm[Hg] Eusebio Ball DO Work Phone: [facility] 09-02-2024 13:33-0500 Body height 185.42 cm Eusebio Ball DO Work Phone: [facility] 09-02-2024 13:33-0500 Body mass index (BMI) [Ratio] 22.2 kg/m2 Eusebio Ball DO Work Phone: [facility] 09-02-2024 13:33-0500 Body weight 76.6 kg Eusebio Ball DO Work Phone: [facility] 09-02-2024 13:33-0500 Diastolic blood pressure 89 mm[Hg] Eusebio Ball DO Work Phone: [facility] 09-02-2024 13:33-0500 Heart rate 80 /min Eusebio Ball DO Work Phone: [facility] 09-02-2024 13:33-0500 Respiratory rate 12 /min Eusebio Ball DO Work Phone: [facility] 09-02-2024 13:33-0500 Systolic blood pressure 139 mm[Hg] Eusebio Ball DO Work Phone: [facility] 08-29-2024 16:18-0500 Heart rate 70 /min Eusebio Ball DO Work Phone: [facility] 08-29-2024 14:51-0500 Body temperature 98 [degF] Eusebio Ball DO Work Phone: [facility] 08-29-2024 14:51-0500 Diastolic blood pressure 80 mm[Hg] Eusebio Ball DO Work Phone: [facility] 08-29-2024 14:51-0500 Respiratory rate 18 /min Eusebio Ball DO Work Phone: [facility] 08-29-2024 14:51-0500 SaO2% (BldA) [Mass fraction] 98 % Eusebio Ball DO Work Phone: [facility] 08-29-2024 14:51-0500 Systolic blood pressure 158 mm[Hg] Eusebio Ball DO Work Phone: [facility] 08-29-2024 05:57-0500 Body weight 78 kg Eusebio Ball DO Work Phone: [facility] 08-28-2024 14:00-0500 Body height 185.42 cm Eusebio Ball DO Work Phone: [facility] 08-28-2024 02:09-0500 Diastolic blood pressure 76 mm[Hg] Eusebio Ball DO Work Phone: [facility] 08-28-2024 02:09-0500 Heart rate 74 /min Eusebio Ball DO Work Phone: [facility] 08-28-2024 02:09-0500 Respiratory rate 22 /min Eusebio Ball DO Work Phone: [facility] 08-28-2024 02:09-0500 Systolic blood pressure 149 mm[Hg] Eusebio Ball DO Work Phone: [facility] 08-27-2024 21:43-0500 Body height 182.88 cm Eusebio Ball DO Work Phone: [facility] 08-27-2024 21:43-0500 Body temperature 98 [degF] Eusebio Ball DO Work Phone: [facility] 08-27-2024 21:43-0500 Body weight 77.11 kg Eusebio Ball DO Work Phone: [facility] 08-27-2024 21:43-0500 SaO2% (BldA) [Mass fraction] 98 % Eusebio Ball DO Work Phone: [facility] 08-17-2024 14:13-0500 Body height 185.42 cm Eusebio Ball DO Work Phone: [facility] 08-17-2024 14:13-0500 Body temperature 98.4 [degF] Eusebio Ball DO Work Phone: [facility] 08-17-2024 14:13-0500 Body weight 70 kg Eusebio Ball DO Work Phone: [facility] 08-17-2024 14:13-0500 Diastolic blood pressure 76 mm[Hg] Eusebio Ball DO Work Phone: [facility] 08-17-2024 14:13-0500 Heart rate 69 /min Eusebio Ball DO Work Phone: [facility] 08-17-2024 14:13-0500 Respiratory rate 16 /min Eusebio Ball DO Work Phone: [facility] 08-17-2024 14:13-0500 SaO2% (BldA) [Mass fraction] 98 % Eusebio Ball DO Work Phone: [facility] 08-17-2024 14:13-0500 Systolic blood pressure 157 mm[Hg] Eusebio Ball DO Work Phone: [facility] 08-01-2024 03:06-0500 Diastolic blood pressure 94 mm[Hg] Eusebio Ball DO Work Phone: [facility] 08-01-2024 03:06-0500 Heart rate 75 /min Eusebio Ball DO Work Phone: [facility] 08-01-2024 03:06-0500 Respiratory rate 14 /min Eusebio Ball DO Work Phone: [facility] 08-01-2024 03:06-0500 SaO2% (BldA) [Mass fraction] 97 % Eusebio Ball DO Work Phone: [facility] 08-01-2024 03:06-0500 Systolic blood pressure 185 mm[Hg] Eusebio Ball DO Work Phone: [facility] 08-01-2024 01:55-0500 Body height 185.42 cm Eusebio Ball DO Work Phone: [facility] 08-01-2024 01:55-0500 Body temperature 98.6 [degF] Eusebio Ball DO Work Phone: [facility] 08-01-2024 01:55-0500 Body weight 73.7 kg Eusebio Ball DO Work Phone: [facility] 06-22-2024 16:39-0500 Respiratory rate 16 /min Eusebio Ball DO Work Phone: [facility] 06-22-2024 16:20-0500 Diastolic blood pressure 80 mm[Hg] Eusebio Ball DO Work Phone: [facility] 06-22-2024 16:20-0500 Heart rate 70 /min Eusebio Ball DO Work Phone: [facility] 06-22-2024 16:20-0500 Systolic blood pressure 158 mm[Hg] Eusebio Ball DO Work Phone: [facility] 06-22-2024 12:30-0500 Body height 185.42 cm Eusebio Ball DO Work Phone: [facility] 06-22-2024 12:30-0500 Body temperature 97.8 [degF] Eusebio Ball DO Work Phone: [facility] 06-22-2024 12:30-0500 Body weight 73.6 kg Eusebio Ball DO Work Phone: [facility] 06-22-2024 12:30-0500 SaO2% (BldA) [Mass fraction] 100 % Eusebio Ball DO Work Phone: [facility] 06-11-2024 09:55-0400 Body height 182.9 cm Brianna Gomez DO Work Phone: [facility] 06-11-2024 09:55-0400 Body mass index (BMI) [Ratio] 21.56 kg/m2 Brianna Gomez DO Work Phone: [facility] 06-11-2024 09:55-0400 Body weight 72.12 kg Brianna Gomez DO Work Phone: [facility] 06-11-2024 09:55-0400 Diastolic blood pressure 88 mm[Hg] Brianna Gomez DO Work Phone: [facility] 06-11-2024 09:55-0400 Heart rate 60 /min Brianna Gomez DO Work Phone: [facility] 06-11-2024 09:55-0400 Systolic blood pressure 148 mm[Hg] Brianna Gomez DO Work Phone: [facility] 06-04-2024 09:14-0400 Body height 182.9 cm David Ghassan DPM Work Phone: [facility] 06-04-2024 09:14-0400 Body mass index (BMI) [Ratio] 21.16 kg/m2 David Berg DPM Work Phone: [facility] 06-04-2024 09:14-0400 Body weight 70.76 kg David Berg DPM Work Phone: [facility] 06-04-2024 09:14-0400 Diastolic blood pressure 80 mm[Hg] David Berg DPM Work Phone: [facility] 06-04-2024 09:14-0400 Heart rate 84 /min David Berg DPM Work Phone: [facility] 06-04-2024 09:14-0400 Systolic blood pressure 129 mm[Hg] David Berg DPM Work Phone: [facility] 04-29-2024 14:18-0400 Body height 172.72 cm DO Eusebio Ball Work Phone: [facility] 04-29-2024 14:18-0400 Body mass index (BMI) [Ratio] 23.4 kg/m2 DO Eusebio Ball Work Phone: [facility] 04-29-2024 14:18-0400 Body weight 70.02 kg DO Eusebio Ball Work Phone: [facility] 04-29-2024 14:18-0400 Diastolic blood pressure 93 mm[Hg] DO Eusebio Ball Work Phone: [facility] 04-29-2024 14:18-0400 Heart rate 83 /min DO Eusebio Ball Work Phone: [facility] 04-29-2024 14:18-0400 Respiratory rate 12 /min DO Eusebio Ball Work Phone: [facility] 04-29-2024 14:18-0400 Systolic blood pressure 188 mm[Hg] DO Eusebio Ball Work Phone: [facility] 03-19-2024 12:05-0400 Body height 172.72 cm DO Eusebio Ball Work Phone: [facility] 03-19-2024 12:05-0400 Body mass index (BMI) [Ratio] 20.6 kg/m2 DO Eusebio Ball Work Phone: [facility] 03-19-2024 12:05-0400 Body weight 61.46 kg DO Eusebio Ball Work Phone: [facility] 03-19-2024 12:05-0400 Diastolic blood pressure 80 mm[Hg] DO Eusebio Ball Work Phone: [facility] 03-19-2024 12:05-0400 Heart rate 77 /min DO Eusebio Ball Work Phone: [facility] 03-19-2024 12:05-0400 Respiratory rate 12 /min DO Eusebio Ball Work Phone: [facility] 03-19-2024 12:05-0400 Systolic blood pressure 157 mm[Hg] DO Eusebio Ball Work Phone: [facility] 03-10-2024 13:14-0400 Body temperature 98.2 [degF] DO Eusebio Ball Work Phone: [facility] 03-10-2024 13:14-0400 Diastolic blood pressure 70 mm[Hg] DO Eusebio Ball Work Phone: [facility] 03-10-2024 13:14-0400 Heart rate 78 /min DO Eusebio Ball Work Phone: [facility] 03-10-2024 13:14-0400 Respiratory rate 24 /min DO Eusebio Ball Work Phone: [facility] 03-10-2024 13:14-0400 SaO2% (BldA) [Mass fraction] 98 % DO Eusebio Ball Work Phone: [facility] 03-10-2024 13:14-0400 Systolic blood pressure 138 mm[Hg] DO Eusebio Ball Work Phone: [facility] 03-10-2024 05:37-0400 Body weight 77.1 kg DO Eusebio Ball Work Phone: [facility] 03-10-2024 00:00-0400 Inhaled oxygen flow rate 2 L/min DO Eusebio Ball Work Phone: [facility] 03-09-2024 17:38-0400 Inhaled oxygen concentration 45 % DO Eusebio Ball Work Phone: [facility] 03-09-2024 10:46-0400 Body height 185.42 cm DO Eusebio Ball Work Phone: [facility] 03-09-2024 10:39-0400 Inhaled oxygen concentration 60 % DO Eusebio Ball Work Phone: [facility] 03-09-2024 10:39-0400 SaO2% (BldA) [Mass fraction] 96 % DO Eusebio Ball Work Phone: [facility] 03-09-2024 10:04-0400 Heart rate 67 /min DO Eusebio Ball Work Phone: [facility] 03-09-2024 10:04-0400 Inhaled oxygen flow rate 35 L/min DO Eusebio Ball Work Phone: [facility] 03-09-2024 10:04-0400 Respiratory rate 24 /min DO Eusebio Ball Work Phone: [facility] 03-09-2024 10:02-0400 Diastolic blood pressure 87 mm[Hg] DO Eusebio Ball Work Phone: [facility] 03-09-2024 10:02-0400 Systolic blood pressure 182 mm[Hg] DO Eusebio Ball Work Phone: [facility] 03-09-2024 07:22-0400 Body temperature 97.1 [degF] DO Eusebio Ball Work Phone: [facility] 03-09-2024 05:32-0400 Body height 185.42 cm DO Eusebio Ball Work Phone: [facility] 03-09-2024 05:32-0400 Body weight 71 kg DO Eusebio Ball Work Phone: [facility] 03-02-2024 17:59-0400 Body temperature 97.1 [degF] DO Eusebio Ball Work Phone: [facility] 03-02-2024 17:59-0400 Diastolic blood pressure 60 mm[Hg] DO Eusebio Ball Work Phone: [facility] 03-02-2024 17:59-0400 Heart rate 72 /min DO Eusebio Ball Work Phone: [facility] 03-02-2024 17:59-0400 Respiratory rate 18 /min DO Eusebio Ball Work Phone: [facility] 03-02-2024 17:59-0400 SaO2% (BldA) [Mass fraction] 100 % DO Eusebio Ball Work Phone: [facility] 03-02-2024 17:59-0400 Systolic blood pressure 139 mm[Hg] DO Eusebio Ball Work Phone: [facility] 03-02-2024 12:46-0400 Body height 185.42 cm DO Eusebio Ball Work Phone: [facility] 03-02-2024 12:30-0400 Diastolic blood pressure 79 mm[Hg] DO Eusebio Ball Work Phone: [facility] 03-02-2024 12:30-0400 Heart rate 74 /min DO Eusebio Ball Work Phone: [facility] 03-02-2024 12:30-0400 Systolic blood pressure 153 mm[Hg] DO Eusebio Ball Work Phone: [facility] 03-02-2024 09:25-0400 Body temperature 98 [degF] DO Eusebio Ball Work Phone: [facility] 03-02-2024 09:25-0400 Respiratory rate 16 /min DO Eusebio Ball Work Phone: [facility] 03-02-2024 09:25-0400 SaO2% (BldA) [Mass fraction] 98 % DO Eusebio Ball Work Phone: [facility] 03-02-2024 06:45-0400 Body weight 80.2 kg DO Eusebio Ball Work Phone: [facility] 03-01-2024 06:56-0400 Diastolic blood pressure 77 mm[Hg] DO Eusebio Ball Work Phone: [facility] 03-01-2024 06:56-0400 Heart rate 75 /min DO Eusebio Ball Work Phone: [facility] 03-01-2024 06:56-0400 Respiratory rate 14 /min DO Eusebio Ball Work Phone: [facility] 03-01-2024 06:56-0400 SaO2% (BldA) [Mass fraction] 93 % DO Eusebio Ball Work Phone: [facility] 03-01-2024 06:56-0400 Systolic blood pressure 164 mm[Hg] DO Eusebio Ball Work Phone: [facility] 03-01-2024 02:40-0400 Body height 185.42 cm DO Eusebio Ball Work Phone: [facility] 03-01-2024 02:40-0400 Body temperature 98.5 [degF] DO Eusebio Ball Work Phone: [facility] 03-01-2024 02:40-0400 Body weight 71.5 kg DO Eusebio Ball Work Phone: [facility] 01-09-2024 09:35-0400 Body height 185.42 cm DO Eusebio Ball Work Phone: [facility] 01-09-2024 09:35-0400 Body temperature 97.8 [degF] DO Eusebio Ball Work Phone: [facility] 01-09-2024 09:35-0400 Diastolic blood pressure 78 mm[Hg] DO Eusebio Ball Work Phone: [facility] 01-09-2024 09:35-0400 Heart rate 76 /min DO Eusebio Ball Work Phone: [facility] 01-09-2024 09:35-0400 Respiratory rate 16 /min DO Eusebio Ball Work Phone: [facility] 01-09-2024 09:35-0400 SaO2% (BldA) [Mass fraction] 97 % DO Eusebio Ball Work Phone: [facility] 01-09-2024 09:35-0400 Systolic blood pressure 122 mm[Hg] DO Eusebio Ball Work Phone: [facility] 12-03-2023 15:31-0400 Body height 182.9 cm Brianna Gomez DO Work Phone: [facility] 12-03-2023 15:31-0400 Body mass index (BMI) [Ratio] 22.92 kg/m2 Brianna Gomez DO Work Phone: [facility] 12-03-2023 15:31-0400 Body weight 76.66 kg Brianna Gomez DO Work Phone: [facility] 12-03-2023 15:31-0400 Diastolic blood pressure 90 mm[Hg] Brianna Gomez DO Work Phone: [facility] 12-03-2023 15:31-0400 Heart rate 76 /min Brianna Gomez DO Work Phone: [facility] 12-03-2023 15:31-0400 Systolic blood pressure 156 mm[Hg] Brianna Gomez DO Work Phone: [facility] 11-26-2023 12:52-0400 Diastolic blood pressure 51 mm[Hg] DO Eusebio Ball Work Phone: [facility] 11-26-2023 12:52-0400 Heart rate 62 /min DO Eusebio Ball Work Phone: [facility] 11-26-2023 12:52-0400 Respiratory rate 14 /min DO Eusebio Ball Work Phone: [facility] 11-26-2023 12:52-0400 SaO2% (BldA) [Mass fraction] 95 % DO Eusebio Ball Work Phone: [facility] 11-26-2023 12:52-0400 Systolic blood pressure 103 mm[Hg] DO Eusebio Ball Work Phone: [facility] 11-26-2023 11:52-0400 Inhaled oxygen flow rate 6 L/min DO Eusebio Ball Work Phone: [facility] 11-26-2023 08:50-0400 Body mass index (BMI) [Ratio] 22.1 kg/m2 DO Eusebio Ball Work Phone: [facility] 11-26-2023 08:42-0400 Body height 185.42 cm DO Eusebio Ball Work Phone: [facility] 11-26-2023 08:42-0400 Body temperature 97.8 [degF] DO Eusebio Ball Work Phone: [facility] 11-26-2023 08:42-0400 Body weight 71.5 kg DO Eusebio Ball Work Phone: [facility] 11-14-2023 14:43-0400 Body height 185.42 cm DO Eusebio Ball Work Phone: [facility] 11-14-2023 14:43-0400 Body mass index (BMI) [Ratio] 21.2 kg/m2 DO Eusebio Ball Work Phone: [facility] 11-14-2023 14:43-0400 Body weight 73.14 kg DO Eusebio Ball Work Phone: [facility] 11-14-2023 14:43-0400 Diastolic blood pressure 81 mm[Hg] DO Eusebio Ball Work Phone: [facility] 11-14-2023 14:43-0400 Heart rate 73 /min DO Eusebio Ball Work Phone: [facility] 11-14-2023 14:43-0400 Respiratory rate 12 /min DO Eusebio Ball Work Phone: [facility] 11-14-2023 14:43-0400 Systolic blood pressure 174 mm[Hg] DO Eusebio Ball Work Phone: [facility] 10-31-2023 08:40-0400 Diastolic blood pressure 72 mm[Hg] DO Eusebio Ball Work Phone: [facility] 10-31-2023 08:40-0400 Heart rate 67 /min DO Eusebio Ball Work Phone: [facility] 10-31-2023 08:40-0400 Respiratory rate 18 /min DO Eusebio Ball Work Phone: [facility] 10-31-2023 08:40-0400 SaO2% (BldA) [Mass fraction] 99 % DO Eusebio Ball Work Phone: [facility] 10-31-2023 08:40-0400 Systolic blood pressure 170 mm[Hg] DO Eusebio Ball Work Phone: [facility] 10-31-2023 08:16-0400 Body height 185.42 cm DO Eusebio Ball Work Phone: [facility] 10-31-2023 08:16-0400 Body weight 72.57 kg DO Eusebio Ball Work Phone: [facility] 10-17-2023 10:57-0500 Body height 185.42 cm DO Eusebio Ball Work Phone: [facility] 10-17-2023 10:57-0500 Body mass index (BMI) [Ratio] 20.7 kg/m2 DO Eusebio Ball Work Phone: [facility] 10-17-2023 10:57-0500 Body temperature 97.6 [degF] DO Eusebio Ball Work Phone: [facility] 10-17-2023 10:57-0500 Body weight 71.21 kg DO Eusebio Ball Work Phone: [facility] 10-17-2023 10:57-0500 Diastolic blood pressure 68 mm[Hg] DO Eusebio Ball Work Phone: [facility] 10-17-2023 10:57-0500 Heart rate 82 /min DO Eusebio Ball Work Phone: [facility] 10-17-2023 10:57-0500 Respiratory rate 16 /min DO Eusebio Ball Work Phone: [facility] 10-17-2023 10:57-0500 SaO2% (BldA) [Mass fraction] 98 % DO Eusebio Ball Work Phone: [facility] 10-17-2023 10:57-0500 Systolic blood pressure 116 mm[Hg] DO Eusebio Ball Work Phone: [facility] 10-17-2023 08:39-0500 Body height 185.42 cm DO Eusebio Ball Work Phone: [facility] 10-17-2023 08:39-0500 Body mass index (BMI) [Ratio] 20.7 kg/m2 DO Eusebio Ball Work Phone: [facility] 10-17-2023 08:39-0500 Body temperature 98.4 [degF] DO Eusebio Ball Work Phone: [facility] 10-17-2023 08:39-0500 Body weight 71.21 kg DO Eusebio Ball Work Phone: [facility] 10-17-2023 08:39-0500 Diastolic blood pressure 63 mm[Hg] DO Eusebio Ball Work Phone: [facility] 10-17-2023 08:39-0500 Systolic blood pressure 117 mm[Hg] DO Eusebio Ball Work Phone: [facility] 10-02-2023 11:26-0500 Heart rate 70 /min DO Eusebio Ball Work Phone: [facility] 10-02-2023 11:08-0500 Respiratory rate 18 /min DO Eusebio Ball Work Phone: [facility] 10-02-2023 11:08-0500 SaO2% (BldA) [Mass fraction] 98 % DO Eusebio Ball Work Phone: [facility] 10-02-2023 10:04-0500 Body height 185.42 cm DO Eusebio Ball Work Phone: [facility] 10-02-2023 10:04-0500 Body weight 74 kg DO Eusebio Ball Work Phone: [facility] 10-02-2023 10:03-0500 Body temperature 97.8 [degF] DO Eusebio Ball Work Phone: [facility] 10-02-2023 10:03-0500 Diastolic blood pressure 73 mm[Hg] DO Eusebio Ball Work Phone: [facility] 10-02-2023 10:03-0500 Systolic blood pressure 139 mm[Hg] DO Eusebio Ball Work Phone: [facility] 10-01-2023 10:46-0500 Body temperature 98 [degF] DO Eusebio Ball Work Phone: [facility] 10-01-2023 10:46-0500 Body weight 73.93 kg DO Eusebio Ball Work Phone: [facility] 10-01-2023 10:46-0500 Diastolic blood pressure 90 mm[Hg] DO Eusebio Ball Work Phone: [facility] 10-01-2023 10:46-0500 Heart rate 798 /min DO Eusebio Ball Work Phone: [facility] 10-01-2023 10:46-0500 Respiratory rate 18 /min DO Eusebio Ball Work Phone: [facility] 10-01-2023 10:46-0500 SaO2% (BldA) [Mass fraction] 98 % DO Eusebio Ball Work Phone: [facility] 10-01-2023 10:46-0500 Systolic blood pressure 170 mm[Hg] DO Eusebio Ball Work Phone: [facility] 08-29-2023 09:00-0500 Body height 185.42 cm Romani Mendoza Other [facility] 08-29-2023 09:00-0500 Body mass index (BMI) [Ratio] 20.58 kg/m2 Romain Mendoza Other [facility] [employer] [facility] Other 08-29-2023 09:00-0500 Body temperature 97.6 [degF] Romain Mendoza Other [facility] [employer] [facility] Other 08-29-2023 09:00-0500 Body weight 70.76 kg Romain Mendoza Other [facility] 08-29-2023 09:00-0500 Diastolic blood pressure 58 mm[Hg] Romain Mendoza Other [facility] 08-29-2023 09:00-0500 SaO2% (BldA) [Mass fraction] 97 % Romain Mendoza Other [facility] [employer] [facility] Other 08-29-2023 09:00-0500 Systolic blood pressure 84 mm[Hg] Romain Mendoza Other [facility] 08-18-2023 14:00-0500 Body temperature 98 [degF] DO Eusebio Ball Work Phone: [facility] 08-18-2023 14:00-0500 Diastolic blood pressure 80 mm[Hg] DO Eusebio Ball Work Phone: [facility] 08-18-2023 14:00-0500 Heart rate 68 /min DO Eusebio Ball Work Phone: [facility] 08-18-2023 14:00-0500 Respiratory rate 18 /min DO Eusebio Ball Work Phone: [facility] 08-18-2023 14:00-0500 SaO2% (BldA) [Mass fraction] 95 % DO Eusebio Ball Work Phone: [facility] 08-18-2023 14:00-0500 Systolic blood pressure 137 mm[Hg] DO Eusebio Ball Work Phone: [facility] 08-18-2023 10:55-0500 Body height 182.88 cm DO Eusebio Ball Work Phone: [facility] 08-18-2023 05:06-0500 Body weight 71.6 kg DO Eusebio Ball Work Phone: [facility] 08-13-2023 10:15-0500 Body height 185.42 cm Eusebio Ball Other [facility] 08-13-2023 10:15-0500 Body mass index (BMI) [Ratio] 20.92 kg/m2 Eusebio Ball Other [facility] [employer] [facility] Other 08-13-2023 10:15-0500 Body weight 71.94 kg Eusebio Ball Other [facility] [employer] [facility] Other 08-13-2023 10:15-0500 Body weight 71.93 kg DO Eusebio Ball Work Phone: [facility] 08-13-2023 10:15-0500 Diastolic blood pressure 61 mm[Hg] Eusebio Ball Other [facility] 08-13-2023 10:15-0500 Respiratory rate 12 /min Eusebio Ball Other [facility] [employer] [facility] Other 08-13-2023 10:15-0500 Systolic blood pressure 94 mm[Hg] Eusebio Ball Other [facility] 07-16-2023 09:30-0500 Body height 185.42 cm Eusebio Ball Other [facility] 07-16-2023 09:30-0500 Body mass index (BMI) [Ratio] 20.98 kg/m2 Eusebio Ball Other [facility] [employer] Other 07-16-2023 09:30-0500 Body weight 72.12 kg Eusebio Ball Other [facility] 07-16-2023 09:30-0500 Diastolic blood pressure 75 mm[Hg] Eusebio Ball Other [facility] 07-16-2023 09:30-0500 Respiratory rate 12 /min Eusebio Ball Other [place] [employer] Other 07-16-2023 09:30-0500 Systolic blood pressure 115 mm[Hg] Eusebio Ball Other [facility] 07-04-2023 09:45-0500 Body height 185.42 cm Romain Mendoza Other [employer] Other 07-04-2023 09:45-0500 Body mass index (BMI) [Ratio] 21.11 kg/m2 Romain Mendoza Other [employer] Other 07-04-2023 09:45-0500 Body temperature 97.8 [degF] Romain Mendoza Other [employer] Other 07-04-2023 09:45-0500 Body weight 72.58 kg Romain Mendoza Other [employer] Other 07-04-2023 09:45-0500 Diastolic blood pressure 72 mm[Hg] Romain Mendoza Other [employer] Other 07-04-2023 09:45-0500 SaO2% (BldA) [Mass fraction] 98 % Romain Mendoza Other [employer] Other 07-04-2023 09:45-0500 Systolic blood pressure 118 mm[Hg] Romain Mendoza Other [employer] Other 06-17-2023 13:55-0400 Diastolic blood pressure 87 mm[Hg] DO Eusebio Ball Work Phone: [facility] 06-17-2023 13:55-0400 Heart rate 72 /min DO Eusebio Ball Work Phone: [facility] 06-17-2023 13:55-0400 Respiratory rate 16 /min DO Eusebio Ball Work Phone: [facility] 06-17-2023 13:55-0400 SaO2% (BldA) [Mass fraction] 99 % DO Eusebio Ball Work Phone: [facility] 06-17-2023 13:55-0400 Systolic blood pressure 158 mm[Hg] DO Eusebio Ball Work Phone: [facility] 06-17-2023 12:15-0400 Body height 185.42 cm DO Eusebio Ball Work Phone: [facility] 06-17-2023 12:15-0400 Body weight 73.48 kg DO Eusebio Ball Work Phone: [facility] 06-13-2023 09:30-0400 Body height 185.42 cm Zina Childs Other [employer] [facility] [employer] Other 06-13-2023 09:30-0400 Body mass index (BMI) [Ratio] 21.11 kg/m2 Zina Childs Other [employer] Other 06-13-2023 09:30-0400 Body temperature 97.6 [degF] Zina Childs Other [employer] Other 06-13-2023 09:30-0400 Body weight 72.58 kg Zina Childs Other [employer] Other 06-13-2023 09:30-0400 Diastolic blood pressure 72 mm[Hg] Zina Childs Other [employer] Other 06-13-2023 09:30-0400 SaO2% (BldA) [Mass fraction] 97 % Zina Childs Other [employer] Other 06-13-2023 09:30-0400 Systolic blood pressure 130 mm[Hg] Zina Childs Other [place] [employer] Other 04-12-2023 09:40-0400 Diastolic blood pressure 81 mm[Hg] DO Eusebio Ball Work Phone: [facility] 04-12-2023 09:40-0400 Heart rate 71 /min DO Eusebio Ball Work Phone: [facility] 04-12-2023 09:40-0400 Respiratory rate 16 /min DO Eusebio Ball Work Phone: [facility] 04-12-2023 09:40-0400 SaO2% (BldA) [Mass fraction] 98 % DO Eusebio Ball Work Phone: [facility] 04-12-2023 09:40-0400 Systolic blood pressure 175 mm[Hg] DO Eusebio Ball Work Phone: [facility] 04-12-2023 07:41-0400 Body height 182.88 cm DO Eusebio Ball Work Phone: [facility] 04-12-2023 07:41-0400 Body weight 72.57 kg DO Eusebio Ball Work Phone: [facility] 04-10-2023 10:00-0400 Body height 185.42 cm Romain Mendoza Other [employer] Other 04-10-2023 10:00-0400 Body mass index (BMI) [Ratio] 21.5 kg/m2 Romain Reji Other [employer] Other 04-10-2023 10:00-0400 Body temperature 97.6 [degF] Romain Mendoza Other [employer] Other 04-10-2023 10:00-0400 Body weight 73.94 kg Romain Reji Other [employer] Other 04-10-2023 10:00-0400 Diastolic blood pressure 86 mm[Hg] Romain Mendoza Other [employer] Other 04-10-2023 10:00-0400 SaO2% (BldA) [Mass fraction] 96 % Romain Mendoza Other [employer] Other 04-10-2023 10:00-0400 Systolic blood pressure 128 mm[Hg] Romain Mendoza Other [employer] Other 03-26-2023 08:38-0400 Body height 182.88 cm DO Eusebio Ball Work Phone: [facility] 03-26-2023 08:38-0400 Body temperature 97.7 [degF] DO Eusebio Ball Work Phone: [facility] 03-26-2023 08:38-0400 Body weight 76.06 kg DO Eusebio Ball Work Phone: [facility] 03-26-2023 08:38-0400 Diastolic blood pressure 84 mm[Hg] DO Eusebio Ball Work Phone: [facility] 03-26-2023 08:38-0400 Heart rate 75 /min DO Eusebio Ball Work Phone: [facility] 03-26-2023 08:38-0400 Respiratory rate 20 /min DO Eusebio Ball Work Phone: [facility] 03-26-2023 08:38-0400 SaO2% (BldA) [Mass fraction] 100 % DO Eusebio Ball Work Phone: [facility] 03-26-2023 08:38-0400 Systolic blood pressure 169 mm[Hg] DO Eusebio Ball Work Phone: [facility] 02-27-2023 15:00-0400 Body mass index (BMI) [Ratio] 21.5 kg/m2 Angel Joyce Other [employer] Other 02-27-2023 15:00-0400 Body temperature 96.6 [degF] Angel Joyce Other [employer] Other 02-27-2023 15:00-0400 Body weight 73.94 kg Angel Joyce Other [employer] Other 02-27-2023 15:00-0400 Diastolic blood pressure 81 mm[Hg] Angel Joyce Other [employer] Other 02-27-2023 15:00-0400 Respiratory rate 16 /min Angel Joyce Other [employer] Other 02-27-2023 15:00-0400 SaO2% (BldA) [Mass fraction] 98 % Angel Joyce Other [employer] Other 02-27-2023 15:00-0400 Systolic blood pressure 150 mm[Hg] Angel Joyce Other [employer] Other 02-27-2023 10:00-0400 Body height 185.42 cm Zina Childs Other [employer] Other 02-27-2023 10:00-0400 Body mass index (BMI) [Ratio] 21.24 kg/m2 Zina Childs Other [employer] Other 02-27-2023 10:00-0400 Body temperature 97.3 [degF] Zina Childs Other [employer] Other 02-27-2023 10:00-0400 Body weight 73.03 kg Zina Childs Other [employer] Other 02-27-2023 10:00-0400 Diastolic blood pressure 62 mm[Hg] Zina Childs Other [employer] Other 02-27-2023 10:00-0400 SaO2% (BldA) [Mass fraction] 99 % Zina Childs Other [employer] Other 02-27-2023 10:00-0400 Systolic blood pressure 104 mm[Hg] Zina Childs Other [employer] Other 02-26-2023 09:21-0400 Body height 182.88 cm Eusebio Arreguin [employer] Phone: [facility] [employer] 250 DO Work Phone: 02-26-2023 09:21-0400 Body mass index (BMI) [Ratio] 21.43 kg/m2 Eusebio Arreguin [employer] Phone: [employer] [employer] 250 DO Work Phone: 02-26-2023 09:21-0400 Body surface area Derived from formula 1.93 m2 Eusebio Arreguin Ball Work Phone: [facility] [employer] 250 DO Work Phone: 02-26-2023 09:21-0400 Body weight 71.67 kg Eusebio Arreguin Ball Work Phone: [facility] [employer] 250 DO Work Phone: 02-26-2023 09:21-0400 Diastolic blood pressure 64 mm[Hg] Eusebio Arreguin Ball Work Phone: [facility] [employer] 250 DO Work Phone: 02-26-2023 09:21-0400 Heart rate 78 /min Eusebio Arreguin Ball Work Phone: [facility] [employer] 250 DO Work Phone: 02-26-2023 09:21-0400 Systolic blood pressure 148 mm[Hg] Eusebio Arreguin [employer] Work Phone: [facility] [employer] 250 DO Work Phone: 02-11-2023 11:20-0400 Body height 185.42 cm Angel Joyce Other [employer] Other 02-11-2023 11:20-0400 Body mass index (BMI) [Ratio] 22 kg/m2 Angel Joyce Other [employer] Other 02-11-2023 11:20-0400 Body temperature 97.4 [degF] Angel Joyce Other [employer] Other 02-11-2023 11:20-0400 Body weight 75.66 kg Angel Joyce Other [employer] Other 02-11-2023 11:20-0400 Diastolic blood pressure 55 mm[Hg] Angel Joyce Other [employer] Other 02-11-2023 11:20-0400 Respiratory rate 16 /min Angel Joyce Other [employer] Other 02-11-2023 11:20-0400 SaO2% (BldA) [Mass fraction] 97 % Angel Joyce Other [employer] Other 02-11-2023 11:20-0400 Systolic blood pressure 93 mm[Hg] Angel Joyce Other [place] [employer] Other 02-04-2023 22:30-0400 Diastolic blood pressure 76 mm[Hg] DO Eusebio Ball Work Phone: [facility] 02-04-2023 22:30-0400 Heart rate 71 /min DO Eusebio Ball Work Phone: [facility] 02-04-2023 22:30-0400 Respiratory rate 17 /min DO Eusebio Ball Work Phone: [facility] 02-04-2023 22:30-0400 SaO2% (BldA) [Mass fraction] 99 % DO Eusebio Ball Work Phone: [facility] 02-04-2023 22:30-0400 Systolic blood pressure 182 mm[Hg] DO Eusebio Ball Work Phone: [facility] 02-04-2023 17:30-0400 Body temperature 97.9 [degF] DO Eusebio Ball Work Phone: [facility] 02-04-2023 07:58-0400 Body height 185.42 cm DO Eusebio Ball Work Phone: [facility] 02-04-2023 07:58-0400 Body weight 75 kg DO Eusebio Ball Work Phone: [facility] 01-23-2023 11:15-0400 Body height 185.42 cm Romain Mendoza Other [employer] Other 01-23-2023 11:15-0400 Body mass index (BMI) [Ratio] 21.11 kg/m2 Romain Florezkaley Other [employer] Other 01-23-2023 11:15-0400 Body temperature 98.1 [degF] Romain Florezkaley Other [employer] Other 01-23-2023 11:15-0400 Body weight 72.58 kg Romain Reji Other [employer] Other 01-23-2023 11:15-0400 Diastolic blood pressure 80 mm[Hg] Romain Florezkaley Other [employer] Other 01-23-2023 11:15-0400 SaO2% (BldA) [Mass fraction] 97 % Romain Florezkaley Other [employer] Other 01-23-2023 11:15-0400 Systolic blood pressure 140 mm[Hg] Romain Florezkaley Other [employer] Other 01-16-2023 10:04-0400 Body height 182.88 cm Eusebio Arreguin [employer] Work Phone: [employer] [employer] DO Work Phone: 01-16-2023 10:04-0400 Body mass index (BMI) [Ratio] 21.7 kg/m2 Eusebio Arreguin [employer] Work Phone: [employer] [employer] DO Work Phone: 01-16-2023 10:04-0400 Body surface area Derived from formula 1.94 m2 Eusebio Arreguin [employer] Work Phone: [employer] [place] [facility] 250 DO Work Phone: 01-16-2023 10:04-0400 Body weight 72.58 kg Eusebio E Ball Work Phone: [facility] [employer] 250 DO Work Phone: 01-16-2023 10:04-0400 Diastolic blood pressure 70 mm[Hg] Eusebio E Ball Work Phone: [facility] [employer] 250 DO Work Phone: 01-16-2023 10:04-0400 Heart rate 60 /min Eusebio E Ball Work Phone: [facility] [employer] 250 DO Work Phone: 01-16-2023 10:04-0400 Systolic blood pressure 142 mm[Hg] Eusebio E Ball Work Phone: [facility] 250 DO Work Phone: 01-09-2023 16:00-0400 Body temperature 97.9 [degF] DO Eusebio Ball Work Phone: [facility] 01-09-2023 16:00-0400 Diastolic blood pressure 87 mm[Hg] DO Eusebio Ball Work Phone: [facility] 01-09-2023 16:00-0400 Heart rate 71 /min DO Eusebio Ball Work Phone: [facility] 01-09-2023 16:00-0400 Respiratory rate 18 /min DO Eusebio Ball Work Phone: [facility] 01-09-2023 16:00-0400 SaO2% (BldA) [Mass fraction] 97 % DO Eusebio Ball Work Phone: [facility] 01-09-2023 16:00-0400 Systolic blood pressure 174 mm[Hg] DO Eusebio Ball Work Phone: [facility] 01-09-2023 15:38-0400 Body height 185.42 cm DO Eusebio Ball Work Phone: [facility] 01-09-2023 02:36-0400 Body weight 75.6 kg DO Eusebio Ball Work Phone: [facility] 12-25-2022 11:40-0400 Body height 185.42 cm DO Mickey Tupa Work Phone: [facility] 12-25-2022 11:40-0400 Body temperature 98 [degF] DO Mickey Tupa Work Phone: [facility] 12-25-2022 11:40-0400 Body weight 74.5 kg DO Mickey Tupa Work Phone: [facility] 12-25-2022 11:40-0400 Diastolic blood pressure 82 mm[Hg] DO Mickey Tupa Work Phone: [facility] 12-25-2022 11:40-0400 Heart rate 73 /min DO Mickey Tupa Work Phone: [facility] 12-25-2022 11:40-0400 Respiratory rate 20 /min DO Mickey Tupa Work Phone: [facility] 12-25-2022 11:40-0400 SaO2% (BldA) [Mass fraction] 100 % DO Mickey Tupa Work Phone: [facility] 12-25-2022 11:40-0400 Systolic blood pressure 192 mm[Hg] DO Mickey Tupa Work Phone: [facility] 12-18-2022 11:30-0400 Diastolic blood pressure 79 mm[Hg] DO Mickey Tupa Work Phone: [facility] 12-18-2022 11:30-0400 Heart rate 63 /min DO Mickey Tupa Work Phone: [facility] 12-18-2022 11:30-0400 Respiratory rate 16 /min DO Mickey Tupa Work Phone: [facility] 12-18-2022 11:30-0400 SaO2% (BldA) [Mass fraction] 97 % DO Mickey Tupa Work Phone: [facility] 12-18-2022 11:30-0400 Systolic blood pressure 129 mm[Hg] DO Mickey Tupa Work Phone: [facility] 12-18-2022 10:45-0400 Inhaled oxygen flow rate 8 L/min DO Mickey Tupa Work Phone: [facility] 12-18-2022 08:12-0400 Body weight 76.2 kg DO Mickey Tupa Work Phone: [facility] 12-18-2022 07:40-0400 Body height 185.42 cm DO Mickey Tupa Work Phone: [facility] 12-18-2022 07:40-0400 Body temperature 98 [degF] DO Mickey Tupa Work Phone: [facility] 12-11-2022 09:50-0400 Diastolic blood pressure 91 mm[Hg] DO Mickey Tupa Work Phone: [facility] 12-11-2022 09:50-0400 Heart rate 62 /min DO Mickey Tupa Work Phone: [facility] 12-11-2022 09:50-0400 Respiratory rate 16 /min DO Mickey Tupa Work Phone: [facility] 12-11-2022 09:50-0400 SaO2% (BldA) [Mass fraction] 100 % DO Mickey Tupa Work Phone: [facility] 12-11-2022 09:50-0400 Systolic blood pressure 174 mm[Hg] DO Mickey Tupa Work Phone: [facility] 12-11-2022 07:46-0400 Body height 185.42 cm DO Mickey Tupa Work Phone: [facility] 12-11-2022 07:46-0400 Body weight 74.84 kg DO Mickey Gr Work Phone: [facility] 12-06-2022 15:20-0400 Body height 185.42 cm Angel Joyce Other [employer] Other 12-06-2022 15:20-0400 Body mass index (BMI) [Ratio] 21.74 kg/m2 Angel Joyce Other [employer] Other 12-06-2022 15:20-0400 Body temperature 97.3 [degF] Angel Joyce Other [employer] Other 12-06-2022 15:20-0400 Body weight 74.75 kg Angel Joyce Other [employer] Other 12-06-2022 15:20-0400 Diastolic blood pressure 82 mm[Hg] Angel Joyce Other [employer] Other 12-06-2022 15:20-0400 Respiratory rate 16 /min Angel Joyce Other [employer] Other 12-06-2022 15:20-0400 SaO2% (BldA) [Mass fraction] 96 % Angel Joyce Other [employer] Other 12-06-2022 15:20-0400 Systolic blood pressure 163 mm[Hg] Angel Joyce Other [employer] Other 12-04-2022 08:30-0400 Diastolic blood pressure 83 mm[Hg] DO Eusebio Ball Work Phone: [facility] 12-04-2022 08:30-0400 Heart rate 66 /min DO Eusebio Ball Work Phone: [facility] 12-04-2022 08:30-0400 Respiratory rate 14 /min DO Eusebio Ball Work Phone: [facility] 12-04-2022 08:30-0400 SaO2% (BldA) [Mass fraction] 97 % DO Eusebio Ball Work Phone: [facility] 12-04-2022 08:30-0400 Systolic blood pressure 170 mm[Hg] DO Eusebio Ball Work Phone: [facility] 12-04-2022 07:01-0400 Body height 182.88 cm DO Eusebio Ball Work Phone: [facility] 12-04-2022 07:01-0400 Body weight 77.11 kg DO Eusebio Ball Work Phone: [facility] 11-28-2022 11:30-0400 Body height 185.42 cm Zina Childs Other [employer] Other 11-28-2022 11:30-0400 Body mass index (BMI) [Ratio] 22.16 kg/m2 Zina Childs Other [employer] Other 11-28-2022 11:30-0400 Body temperature 97.8 [degF] Zina Childs Other [employer] Other 11-28-2022 11:30-0400 Body weight 76.2 kg Zina Childs Other [employer] Other 11-28-2022 11:30-0400 Diastolic blood pressure 58 mm[Hg] Zina Childs Other [employer] Other 11-28-2022 11:30-0400 SaO2% (BldA) [Mass fraction] 97 % Zina Childs Other [employer] Other 11-28-2022 11:30-0400 Systolic blood pressure 102 mm[Hg] Zina Childs Other [employer] Other 11-19-2022 10:20-0400 Body height 185.42 cm Angel Joyce Other [employer] Other 11-19-2022 10:20-0400 Body mass index (BMI) [Ratio] 22.22 kg/m2 Angel Joyce Other [employer] Other 11-19-2022 10:20-0400 Body temperature 99.6 [degF] Angel Joyce Other [employer] Other 11-19-2022 10:20-0400 Body weight 76.39 kg Angel Joyce Other [employer] Other 11-19-2022 10:20-0400 Diastolic blood pressure 68 mm[Hg] Angel Joyce Other [employer] Other 11-19-2022 10:20-0400 Respiratory rate 6 /min Angel Joyce Other [employer] Other 11-19-2022 10:20-0400 SaO2% (BldA) [Mass fraction] 99 % Angel Joyce Other [employer] Other 11-19-2022 10:20-0400 Systolic blood pressure 105 mm[Hg] Angel Joyce Other [employer] Other 11-12-2022 09:12-0400 Body height 182.88 cm DO Eusebio Ball Work Phone: [facility] 11-12-2022 09:12-0400 Body temperature 98.1 [degF] DO Eusebio Ball Work Phone: [facility] 11-12-2022 09:12-0400 Body weight 73 kg DO Eusebio Ball Work Phone: [facility] 11-12-2022 09:12-0400 Diastolic blood pressure 63 mm[Hg] DO Eusebio Ball Work Phone: [facility] 11-12-2022 09:12-0400 Heart rate 67 /min DO Eusebio Ball Work Phone: [facility] 11-12-2022 09:12-0400 Respiratory rate 16 /min DO Eusebio Ball Work Phone: [facility] 11-12-2022 09:12-0400 SaO2% (BldA) [Mass fraction] 100 % DO Eusebio Ball Work Phone: [facility] 11-12-2022 09:12-0400 Systolic blood pressure 106 mm[Hg] DO Eusebio Ball Work Phone: [facility] 10-18-2022 10:22-0500 Body height 185.42 cm Eusebio E Ball Work Phone: [facility] 250 DO Work Phone: 10-18-2022 10:22-0500 Body mass index (BMI) [Ratio] 22.17 kg/m2 Eusebio E Ball Work Phone: [facility] 250 DO Work Phone: 10-18-2022 10:22-0500 Body surface area Derived from formula 2 m2 Eusebio E Ball Work Phone: [facility] 250 DO Work Phone: 10-18-2022 10:22-0500 Body weight 76.2 kg Eusebio E Ball Work Phone: [facility] [employer] 250 DO Work Phone: 10-18-2022 10:22-0500 Diastolic blood pressure 76 mm[Hg] Eusebio E Ball Work Phone: [facility] [employer] 250 DO Work Phone: 10-18-2022 10:22-0500 Heart rate 76 /min Eusebio E Ball Work Phone: [facility] [employer] 250 DO Work Phone: 10-18-2022 10:22-0500 Systolic blood pressure 120 mm[Hg] Eusebio E Ball Work Phone: [facility] [employer] DO Work Phone: 10-16-2022 09:40-0500 Body height 185.42 cm Angel Joyce Other [employer] Other 10-16-2022 09:40-0500 Body mass index (BMI) [Ratio] 22.19 kg/m2 Angel Joyce Other [employer] Other 10-16-2022 09:40-0500 Body temperature 98.4 [degF] Angel Joyce Other [employer] Other 10-16-2022 09:40-0500 Body weight 76.3 kg Angel Joyce Other [employer] Other 10-16-2022 09:40-0500 Diastolic blood pressure 73 mm[Hg] Angel Joyce Other [employer] Other 10-16-2022 09:40-0500 Respiratory rate 16 /min Angel Joyce Other [employer] Other 10-16-2022 09:40-0500 SaO2% (BldA) [Mass fraction] 99 % Angel Joyce Other [employer] Other 10-16-2022 09:40-0500 Systolic blood pressure 121 mm[Hg] Angel Joyce Other [employer] Other 10-10-2022 10:30-0500 Body height 185.42 cm Zina Childs Other [employer] Other 10-10-2022 10:30-0500 Body mass index (BMI) [Ratio] 21.77 kg/m2 Zina Hanjaironjojo Other [employer] Other 10-10-2022 10:30-0500 Body temperature 97.8 [degF] Zina Hanjaironjojo Other [employer] Other 10-10-2022 10:30-0500 Body weight 74.84 kg Zina Childs Other [employer] Other 10-10-2022 10:30-0500 Diastolic blood pressure 62 mm[Hg] Zina Hanjairono Other [employer] Other 10-10-2022 10:30-0500 SaO2% (BldA) [Mass fraction] 98 % Zina Hamptono Other [employer] Other 10-10-2022 10:30-0500 Systolic blood pressure 108 mm[Hg] Zina Hanjairono Other [employer] Other 10-08-2022 10:15-0500 Body height 185.42 cm Eusebio Ball Other [employer] Other 10-08-2022 10:15-0500 Body mass index (BMI) [Ratio] 21.85 kg/m2 Eusebio Ball Other [employer] Other 10-08-2022 10:15-0500 Body weight 75.12 kg Eusebio Ball Other [employer] Other 10-08-2022 10:15-0500 Diastolic blood pressure 70 mm[Hg] Eusebio Ball Other [employer] Other 10-08-2022 10:15-0500 Respiratory rate 12 /min Eusebio Ball Other [employer] Other 10-08-2022 10:15-0500 Systolic blood pressure 108 mm[Hg] Eusebio Ball Other [employer] Other 10-03-2022 11:46-0500 Body temperature 97.9 [degF] DO Zeus Keister Work Phone: [facility] 10-03-2022 11:46-0500 Diastolic blood pressure 90 mm[Hg] DO Zeus Keister Work Phone: [facility] 10-03-2022 11:46-0500 Heart rate 77 /min DO Zeus Keister Work Phone: [facility] 10-03-2022 11:46-0500 Respiratory rate 16 /min DO Zeus Keister Work Phone: [facility] 10-03-2022 11:46-0500 SaO2% (BldA) [Mass fraction] 98 % DO Zeus Keister Work Phone: [facility] 10-03-2022 11:46-0500 Systolic blood pressure 171 mm[Hg] DO Zeus Keister Work Phone: [facility] 02-15-2023 09:41-0500 60 1 Eusebio E Ball Work Phone: [facility] DO Work Phone: Comment on above: [id number] 10-03-2022 03:52-0500 Body height 185.42 cm DO Zeus Keister Work Phone: [facility] 10-03-2022 03:52-0500 Body weight 74.2 kg DO Zeus Keister Work Phone: [facility] 10-03-2022 02:26-0500 Heart rate 70 /min DO Zeus Keister Work Phone: [facility] 10-03-2022 02:26-0500 Respiratory rate 14 /min DO Zeus Keister Work Phone: [facility] 10-03-2022 02:26-0500 SaO2% (BldA) [Mass fraction] 98 % DO Zeus Keister Work Phone: [facility] 10-03-2022 01:52-0500 Diastolic blood pressure 79 mm[Hg] DO Zeus Keister Work Phone: [facility] 10-03-2022 01:52-0500 Systolic blood pressure 162 mm[Hg] DO Zeus Keister Work Phone: [facility] 10-02-2022 23:27-0500 Body height 185.42 cm DO Zeus Keister Work Phone: [facility] 10-02-2022 23:27-0500 Body temperature 97.8 [degF] DO Zeus Keister Work Phone: [facility] 10-02-2022 23:27-0500 Body weight 75.1 kg DO Zeus Keister Work Phone: [facility] 09-17-2022 13:27-0500 Diastolic blood pressure 62 mm[Hg] DO Eusebio Ball Work Phone: [facility] 09-17-2022 13:27-0500 Heart rate 59 /min DO Eusebio Ball Work Phone: [facility] 09-17-2022 13:27-0500 Respiratory rate 16 /min DO Eusebio Ball Work Phone: [facility] 09-17-2022 13:27-0500 SaO2% (BldA) [Mass fraction] 99 % DO Eusebio Ball Work Phone: [facility] 09-17-2022 13:27-0500 Systolic blood pressure 121 mm[Hg] DO Eusebio Ball Work Phone: [facility] 09-17-2022 11:51-0500 Inhaled oxygen flow rate 8 L/min DO Eusebio Ball Work Phone: [facility] 09-17-2022 10:14-0500 Body height 182.88 cm DO Eusebio Ball Work Phone: [facility] 09-17-2022 10:14-0500 Body mass index (BMI) [Ratio] 22.4 kg/m2 DO Eusebio Ball Work Phone: [facility] 09-17-2022 10:14-0500 Body weight 75 kg DO Eusebio Ball Work Phone: [facility] 09-17-2022 08:35-0500 Body temperature 97.9 [degF] DO Eusebio Ball Work Phone: [facility] 09-10-2022 14:28-0500 Body temperature 97.8 [degF] DO Eusebio Ball Work Phone: [facility] 09-10-2022 14:28-0500 Body weight 76.9 kg DO Eusebio Ball Work Phone: [facility] 09-10-2022 14:28-0500 Diastolic blood pressure 76 mm[Hg] DO Eusebio Ball Work Phone: [facility] 09-10-2022 14:28-0500 Heart rate 74 /min DO Eusebio Ball Work Phone: [facility] 09-10-2022 14:28-0500 Respiratory rate 16 /min DO Eusebio Ball Work Phone: [facility] 09-10-2022 14:28-0500 SaO2% (BldA) [Mass fraction] 99 % DO Eusebio Ball Work Phone: [facility] 09-10-2022 14:28-0500 Systolic blood pressure 161 mm[Hg] DO Eusebio Ball Work Phone: [facility] 09-05-2022 11:30-0500 Body height 185.42 cm Romain Mendoza Other [employer] Other 09-05-2022 11:30-0500 Body mass index (BMI) [Ratio] 21.77 kg/m2 Romain Mendoza Other [employer] Other 09-05-2022 11:30-0500 Body temperature 96.9 [degF] Romain Mendoza Other [employer] Other 09-05-2022 11:30-0500 Body weight 74.84 kg Romain Mendoza Other [employer] Other 09-05-2022 11:30-0500 Diastolic blood pressure 60 mm[Hg] Romain Mendoza Other [employer] Other 09-05-2022 11:30-0500 SaO2% (BldA) [Mass fraction] 97 % Romain Mendoza Other [employer] Other 09-05-2022 11:30-0500 Systolic blood pressure 100 mm[Hg] Romain Mendoza Other [employer] [facility] [employer] Other 08-30-2022 10:40-0500 Body height 185.42 cm Angel Joyce Other [employer] Other 08-30-2022 10:40-0500 Body mass index (BMI) [Ratio] 21.32 kg/m2 Angel Joyce Other [employer] Other 08-30-2022 10:40-0500 Body temperature 98.4 [degF] Angel Joyce Other [employer] Other 08-30-2022 10:40-0500 Body weight 73.3 kg Angel Joyce Other [employer] Other 08-30-2022 10:40-0500 Diastolic blood pressure 67 mm[Hg] Angel Joyce Other [employer] Other 08-30-2022 10:40-0500 Respiratory rate 16 /min Angel Joyce Other [employer] Other 08-30-2022 10:40-0500 SaO2% (BldA) [Mass fraction] 98 % Angel Joyce Other [employer] Other 08-30-2022 10:40-0500 Systolic blood pressure 102 mm[Hg] Angel Joyce Other [employer] Other 08-29-2022 10:19-0500 Blood Pressure Location Mickey GUERIN [facility] 08-29-2022 10:19-0500 Diastolic blood pressure 88 mm[Hg] Mickey GUERIN [facility] 08-29-2022 10:19-0500 Heart rate 76 /min Mickey GUERIN [facility] 08-29-2022 10:19-0500 Systolic blood pressure 129 mm[Hg] Mickey GUERIN [facility] 08-13-2022 11:19-0500 Diastolic blood pressure 67 mm[Hg] DO Eusebio Ball Work Phone: [facility] 08-13-2022 11:19-0500 Heart rate 68 /min DO Eusebio Ball Work Phone: [facility] 08-13-2022 11:19-0500 Respiratory rate 16 /min DO Eusebio Ball Work Phone: [facility] 08-13-2022 11:19-0500 SaO2% (BldA) [Mass fraction] 97 % DO Eusebio Ball Work Phone: [facility] 08-13-2022 11:19-0500 Systolic blood pressure 107 mm[Hg] DO Eusebio Ball Work Phone: [facility] 08-13-2022 08:00-0500 Body temperature 97.4 [degF] DO Eusebio Ball Work Phone: [facility] 08-13-2022 03:30-0500 Body height 182.88 cm DO Eusebio Ball Work Phone: [facility] 08-13-2022 03:30-0500 Body weight 76 kg DO Eusebio Ball Work Phone: [facility] 08-13-2022 02:20-0500 Body temperature 98.4 [degF] DO Eusebio Ball Work Phone: [facility] 08-13-2022 02:20-0500 Diastolic blood pressure 90 mm[Hg] DO Eusebio Ball Work Phone: [facility] 08-13-2022 02:20-0500 Heart rate 76 /min DO Eusebio Ball Work Phone: [facility] 08-13-2022 02:20-0500 Respiratory rate 16 /min DO Eusebio Ball Work Phone: [facility] 08-13-2022 02:20-0500 SaO2% (BldA) [Mass fraction] 98 % DO Eusebio Ball Work Phone: [facility] 08-13-2022 02:20-0500 Systolic blood pressure 192 mm[Hg] DO Eusebio Ball Work Phone: [facility] 08-12-2022 23:06-0500 Body height 182.88 cm DO Eusebio Ball Work Phone: [facility] 08-12-2022 23:06-0500 Body weight 76 kg DO Eusebio Ball Work Phone: [facility] 07-19-2022 15:15-0500 60 1 Eusebio E Ball Work Phone: [facility] DO Work Phone: Comment on above: [id number] 07-09-2022 21:35-0500 Body temperature 97 [degF] DO Eusebio Ball Work Phone: [facility] 07-09-2022 21:35-0500 Diastolic blood pressure 67 mm[Hg] DO Eusebio Ball Work Phone: [facility] 07-09-2022 21:35-0500 Heart rate 65 /min DO Eusebio Ball Work Phone: [facility] 07-09-2022 21:35-0500 Respiratory rate 18 /min DO Eusebio Ball Work Phone: [facility] 07-09-2022 21:35-0500 SaO2% (BldA) [Mass fraction] 100 % DO Eusebio Ball Work Phone: [facility] 07-09-2022 21:35-0500 Systolic blood pressure 140 mm[Hg] DO Eusebio Ball Work Phone: [facility] 07-09-2022 16:31-0500 Body height 182.88 cm DO Eusebio Ball Work Phone: [facility] 07-09-2022 16:31-0500 Body weight 74.2 kg DO Eusebio Ball Work Phone: [facility] 07-05-2022 11:35-0500 Body height 185.42 cm Eusebio Arreguin Ball Work Phone: [facility] DO Work Phone: 07-05-2022 11:35-0500 Body mass index (BMI) [Ratio] 21.11 kg/m2 Eusebio Arreguin Ball Work Phone: [facility] DO Work Phone: 07-05-2022 11:35-0500 Body surface area Derived from formula 1.96 m2 Eusebio E Ball Work Phone: [facility] DO Work Phone: 07-05-2022 11:35-0500 Body weight 72.58 kg Eusebio Arreguin Ball Work Phone: [facility] DO Work Phone: 07-05-2022 11:35-0500 Diastolic blood pressure 72 mm[Hg] Esuebio Arreguin Ball Work Phone: [facility] DO Work Phone: 07-05-2022 11:35-0500 Heart rate 72 /min Eusebio Arreguin Ball Work Phone: [facility] DO Work Phone: 07-05-2022 11:35-0500 Systolic blood pressure 116 mm[Hg] Eusebio Arreguin Ball Work Phone: [facility] DO Work Phone: 07-04-2022 11:00-0500 Body height 185.42 cm Angel Mejía Other [employer] Other 07-04-2022 11:00-0500 Body mass index (BMI) [Ratio] 20.76 kg/m2 Angel Joyce Other [employer] Other 07-04-2022 11:00-0500 Body temperature 98.4 [degF] Angel Joyce Other [employer] [facility] [employer] Other 07-04-2022 11:00-0500 Body weight 71.4 kg Angel Joyce Other [employer] Other 07-04-2022 11:00-0500 Diastolic blood pressure 89 mm[Hg] Angel Joyce Other [employer] Other 07-04-2022 11:00-0500 Respiratory rate 16 /min Angel Joyce Other [employer] Other 07-04-2022 11:00-0500 SaO2% (BldA) [Mass fraction] 98 % Angel Joyce Other [employer] Other 07-04-2022 11:00-0500 Systolic blood pressure 139 mm[Hg] Angel Joyce Other [employer] Other 06-13-2022 11:10-0400 Diastolic blood pressure 86 mm[Hg] DO Eusebio Ball Work Phone: [facility] 06-13-2022 11:10-0400 Heart rate 79 /min DO Eusebio Ball Work Phone: [facility] 06-13-2022 11:10-0400 Respiratory rate 18 /min DO Eusebio Ball Work Phone: [facility] 06-13-2022 11:10-0400 SaO2% (BldA) [Mass fraction] 99 % DO Eusebio Ball Work Phone: [facility] 06-13-2022 11:10-0400 Systolic blood pressure 178 mm[Hg] DO Eusebio Ball Work Phone: [facility] 06-13-2022 07:37-0400 Body height 182.88 cm DO Eusebio Ball Work Phone: [facility] 06-13-2022 07:37-0400 Body temperature 97.5 [degF] DO Eusebio Ball Work Phone: [facility] 06-13-2022 07:37-0400 Body weight 72.57 kg DO Eusebio Ball Work Phone: [facility] 06-03-2022 20:08-0400 Diastolic blood pressure 82 mm[Hg] DO Eusebio Ball Work Phone: [facility] 06-03-2022 20:08-0400 Heart rate 68 /min DO Eusebio Ball Work Phone: [facility] 06-03-2022 20:08-0400 Respiratory rate 18 /min DO Eusebio Ball Work Phone: [facility] 06-03-2022 20:08-0400 SaO2% (BldA) [Mass fraction] 99 % DO Eusebio Ball Work Phone: [facility] 06-03-2022 20:08-0400 Systolic blood pressure 152 mm[Hg] DO Eusebio Ball Work Phone: [facility] 06-03-2022 15:02-0400 Body height 182.88 cm DO Eusebio Ball Work Phone: [facility] 06-03-2022 15:02-0400 Body temperature 98 [degF] DO Eusebio Ball Work Phone: [facility] 06-03-2022 15:02-0400 Body weight 77.11 kg DO Eusebio Ball Work Phone: [facility] 05-29-2022 11:01-0400 Body temperature 97.5 [degF] DO Eusebio Ball Work Phone: [facility] 05-29-2022 11:01-0400 Body weight 79.37 kg DO Eusebio Ball Work Phone: [facility] 05-29-2022 11:01-0400 Diastolic blood pressure 75 mm[Hg] DO Eusebio Ball Work Phone: [facility] 05-29-2022 11:01-0400 Heart rate 80 /min DO Eusebio Ball Work Phone: [facility] 05-29-2022 11:01-0400 Respiratory rate 16 /min DO Eusebio Ball Work Phone: [facility] 05-29-2022 11:01-0400 SaO2% (BldA) [Mass fraction] 98 % DO Eusebio Ball Work Phone: [facility] 05-29-2022 11:01-0400 Systolic blood pressure 118 mm[Hg] DO Eusebio Ball Work Phone: [facility] 05-23-2022 11:40-0400 Body height 185.42 cm Angel Joyce Other [employer] Other 05-23-2022 11:40-0400 Body mass index (BMI) [Ratio] 22 kg/m2 Angel Joyce Other [employer] Other 05-23-2022 11:40-0400 Body temperature 98.2 [degF] Angel Joyce Other [employer] Other 05-23-2022 11:40-0400 Body weight 75.66 kg Angel Joyce Other [employer] Other 05-23-2022 11:40-0400 Diastolic blood pressure 92 mm[Hg] Angel Joyce Other [employer] Other 05-23-2022 11:40-0400 Respiratory rate 16 /min Angel Joyce Other [employer] [facility] [employer] Other 05-23-2022 11:40-0400 SaO2% (BldA) [Mass fraction] 98 % Angel Joyce Other [employer] [facility] [employer] Other 05-23-2022 11:40-0400 Systolic blood pressure 168 mm[Hg] Angel Joyce Other [facility] [employer] Other 05-22-2022 01:36-0400 Body temperature 99 [degF] DO Eusebio Ball Work Phone: [facility] 05-22-2022 01:36-0400 Diastolic blood pressure 78 mm[Hg] DO Eusebio Ball Work Phone: [facility] 05-22-2022 01:36-0400 Heart rate 67 /min DO Eusebio Ball Work Phone: [facility] 05-22-2022 01:36-0400 Respiratory rate 18 /min DO Eusebio Ball Work Phone: [facility] 05-22-2022 01:36-0400 SaO2% (BldA) [Mass fraction] 96 % DO Eusebio Ball Work Phone: [facility] 05-22-2022 01:36-0400 Systolic blood pressure 154 mm[Hg] DO Eusebio Ball Work Phone: [facility] 05-21-2022 22:03-0400 Body height 182.88 cm DO Eusebio Ball Work Phone: [facility] 05-21-2022 22:03-0400 Body weight 74 kg DO Eusebio Ball Work Phone: [facility] 05-18-2022 11:40-0400 Diastolic blood pressure 95 mm[Hg] DO Eusebio Ball Work Phone: [facility] 05-18-2022 11:40-0400 Heart rate 80 /min DO Eusebio Ball Work Phone: [facility] 05-18-2022 11:40-0400 Respiratory rate 16 /min DO Eusebio Ball Work Phone: [facility] 05-18-2022 11:40-0400 SaO2% (BldA) [Mass fraction] 99 % DO Eusebio Ball Work Phone: [facility] 05-18-2022 11:40-0400 Systolic blood pressure 172 mm[Hg] DO Eusebio Ball Work Phone: [facility] 05-18-2022 08:57-0400 Body height 182.88 cm DO Eusebio Ball Work Phone: [facility] 05-18-2022 08:57-0400 Body weight 75.29 kg DO Eusebio Ball Work Phone: [facility] 05-09-2022 13:45-0400 Body temperature 98 [degF] DO Eusebio Ball Work Phone: [facility] 05-09-2022 13:45-0400 Body weight 75.43 kg DO Eusebio Ball Work Phone: [facility] 05-09-2022 13:45-0400 Diastolic blood pressure 80 mm[Hg] DO Eusebio Ball Work Phone: [facility] 05-09-2022 13:45-0400 Heart rate 73 /min DO Eusebio Ball Work Phone: [facility] 05-09-2022 13:45-0400 Respiratory rate 20 /min DO Eusebio Ball Work Phone: [facility] 05-09-2022 13:45-0400 SaO2% (BldA) [Mass fraction] 99 % DO Eusbeio Ball Work Phone: [facility] 05-09-2022 13:45-0400 Systolic blood pressure 126 mm[Hg] DO Eusebio Ball Work Phone: [facility] 05-09-2022 08:47-0400 Body height 182.88 cm DO Eusebio Ball Work Phone: [facility] 04-20-2022 12:00-0400 Body height 185.42 cm Angel Joyce Other [employer] Other 04-20-2022 12:00-0400 Body mass index (BMI) [Ratio] 21.98 kg/m2 Angel Joyce Other [employer] Other 04-20-2022 12:00-0400 Body weight 75.57 kg Angel Joyce Other [employer] Other 04-20-2022 12:00-0400 Diastolic blood pressure 73 mm[Hg] Angel Joyce Other [employer] Other 04-20-2022 12:00-0400 Respiratory rate 16 /min Angel Joyce Other [employer] Other 04-20-2022 12:00-0400 SaO2% (BldA) [Mass fraction] 97 % Angel Joyce Other [employer] Other 04-20-2022 12:00-0400 Systolic blood pressure 111 mm[Hg] Angel Joyce Other [employer] Other 04-10-2022 02:06-0400 Diastolic blood pressure 82 mm[Hg] DO Eusebio Ball Work Phone: [facility] 04-10-2022 02:06-0400 Heart rate 71 /min DO Eusebio Ball Work Phone: [facility] 04-10-2022 02:06-0400 Respiratory rate 18 /min DO Eusebio Ball Work Phone: [facility] 04-10-2022 02:06-0400 SaO2% (BldA) [Mass fraction] 99 % DO Eusebio Ball Work Phone: [facility] 04-10-2022 02:06-0400 Systolic blood pressure 156 mm[Hg] DO Eusebio Ball Work Phone: [facility] 04-09-2022 23:48-0400 Body temperature 97.2 [degF] DO Eusebio Ball Work Phone: [facility] 04-09-2022 21:52-0400 Body height 182.88 cm DO Eusebio Ball Work Phone: [facility] 04-09-2022 21:52-0400 Body weight 77.11 kg DO Eusebio Ball Work Phone: [facility] 03-29-2022 16:20-0400 Body height 185.42 cm Angel Joyce Other [employer] Other 03-29-2022 16:20-0400 Body mass index (BMI) [Ratio] 23.4 kg/m2 Angel Joyce Other [employer] Other 03-29-2022 16:20-0400 Body temperature 96.4 [degF] Angel Joyce Other [employer] Other 03-29-2022 16:20-0400 Body weight 80.47 kg Angel Joyce Other [employer] Other 03-29-2022 16:20-0400 Diastolic blood pressure 88 mm[Hg] Angel Joyce Other [employer] Other 03-29-2022 16:20-0400 Respiratory rate 18 /min Angel Joyce Other [employer] Other 03-29-2022 16:20-0400 SaO2% (BldA) [Mass fraction] 98 % Angel Joyce Other [employer] Other 03-29-2022 16:20-0400 Systolic blood pressure 161 mm[Hg] Angel Joyce Other [employer] Other 12-19-2021 10:40-0400 Body height 185.42 cm Angel Joyce Other [employer] Other 12-19-2021 10:40-0400 Body mass index (BMI) [Ratio] 22.32 kg/m2 Angel Joyce Other [employer] Other 12-19-2021 10:40-0400 Body temperature 97.6 [degF] Angel Joyce Other [employer] Other 12-19-2021 10:40-0400 Body weight 76.75 kg Angel Joyce Other [employer] Other 12-19-2021 10:40-0400 Diastolic blood pressure 90 mm[Hg] Angel Joyce Other [employer] Other 12-19-2021 10:40-0400 Respiratory rate 18 /min Angel Joyce Other [employer] Other 12-19-2021 10:40-0400 SaO2% (BldA) [Mass fraction] 99 % Angel Joyce Other [employer] Other 12-19-2021 10:40-0400 Systolic blood pressure 160 mm[Hg] Angel Joyce Other [facility] [employer] Other 12-07-2021 09:25-0400 Body height 185.42 cm DO Eusebio Ball Work Phone: [facility] 12-07-2021 09:25-0400 Body weight 75.56 kg DO Eusebio Ball Work Phone: [facility] 11-24-2021 13:12-0400 Body height 185.42 cm Eusebio E Ball Work Phone: [facility] DO Work Phone: 11-24-2021 13:12-0400 Body mass index (BMI) [Ratio] 23.38 kg/m2 Eusebio E Ball Work Phone: [facility] DO Work Phone: 11-24-2021 13:12-0400 Body surface area Derived from formula 2.04 m2 Eusebio E Ball Work Phone: [facility] DO Work Phone: 11-24-2021 13:12-0400 Body weight 80.38 kg Eusebio E Ball Work Phone: [facility] DO Work Phone: 11-24-2021 13:12-0400 Diastolic blood pressure 78 mm[Hg] Eusebio E Ball Work Phone: [facility] DO Work Phone: 11-24-2021 13:12-0400 Heart rate 83 /min Eusebio E Ball Work Phone: [facility] DO Work Phone: 11-24-2021 13:12-0400 Systolic blood pressure 126 mm[Hg] Eusebio E Ball Work Phone: [facility] DO Work Phone: 03-30-2022 00:00-0400 42 1 Eusebio E Ball Work Phone: [facility] DO Work Phone: Comment on above: [id number] 11-08-2021 14:00-0400 Body height 185.42 cm Angel Joyce Other [employer] Other 11-08-2021 14:00-0400 Body mass index (BMI) [Ratio] 26.01 kg/m2 Angel Joyce Other [employer] Other 11-08-2021 14:00-0400 Body temperature 98.4 [degF] Angel Joyce Other [employer] Other 11-08-2021 14:00-0400 Body weight 89.45 kg Angel Joyce Other [employer] Other 11-08-2021 14:00-0400 Diastolic blood pressure 103 mm[Hg] Angel Joyce Other [employer] Other 11-08-2021 14:00-0400 Respiratory rate 18 /min Angel Joyce Other [employer] Other 11-08-2021 14:00-0400 SaO2% (BldA) [Mass fraction] 96 % Angel Joyce Other [employer] Other 11-08-2021 14:00-0400 Systolic blood pressure 164 mm[Hg] Angel Joyce Other [employer] Other Encounters Encounter Date Encounter Type Care Provider Facility Start: 06-02-2025 End: 06-02-2025 [facility]AIT[facility] Start: 06-02-2025 End: 06-02-2025 Subsequent hospital visit by physician [facility] Comment on above: Nonrheumatic mitral valve regurgitation Start: 06-02-2025 End: 06-02-2025 Office outpatient new 20 minutes Carmen Rowland MD Work Phone: [facility] [place] Comment on above: Severe mitral regurg itation (Primary Dx) Start: 06-02-2025 End: 06-02-2025 ambulatory CARMEN ROWLAND [facility] Start: 05-31-2025 End: 06-01-2025 ambulatory Eusebio Olivares Facility:[facility] Start: 05-31-2025 Evaluation and management of inpatient Adrian Noland MD -[facility] Work Phone: Start: 05-31-2025 End: 06-01-2025 observation encounter Eusebio [facility] DO Work Phone: [facility] Work Phone: Start: 05-31-2025 End: 06-01-2025 Chung Maria MD -[facility] Work Phone: Start: 05-29-2025 End: 05-30-2025 Eusebio Ball DO Work Phone: -Emergency Room Work Phone: Start: 05-29-2025 End: 05-30-2025 Emergency department patient visit Eusebio Olivares DO Work Phone: -Emergency Room Work Phone: Start: 05-27-2025 End: 05-27-2025 Office outpatient visit 40 minutes Brianna Gomez DO Work Phone: [facility] Comment on above: ASHD (arteriosclerot ic heart disease); History of MD (myocardial infarction); Status post insertion of drug eluting coronary artery stent; Nonrheumatic mitral valve regurgitation; Essential (primary) hypertension; Mixed hyperlipidemia; Type 2 diabetes mellitus with chronic kidney disease on chronic dialysis, with long-term current use of insulin (Multi); ESRD (end stage renal disease) on dialysis (Multi); BMI 23.0-23.9, adult; ACEI/ARB contraindicated; Current every day smoker; Vapes nicotine containing substance; Essential hypertension, benign Start: 05-27-2025 End: 05-27-2025 ambulatory [facility] Start: 05-14-2025 Nancy Haas MD -[facility] Work Phone: Start: 05-06-2025 End: 05-06-2025 ambulatory Eusebio Olivares Facility:[facility] Start: 05-06-2025 End: 05-06-2025 Evaluation and management of inpatient Naeden Grant MD -[facility] Work Phone: Start: 05-06-2025 End: 05-06-2025 observation encounter Eusebio Olivares DO Work Phone: [facility] Work Phone: Start: 05-06-2025 End: 05-06-2025 Nadeen Grant MD -[facility] Work Phone: Start: 04-22-2025 End: 04-22-2025 ambulatory Eusebio Olivares DO Work Phone: [facility] Work Phone: Start: 04-22-2025 End: 04-22-2025 Patient encounter procedure Eusebio Olivares DO -[facility] Work Phone: Start: 04-22-2025 End: 04-22-2025 Eusebio Olivares DO -[facility] Work Phone: Start: 04-15-2025 End: 04-15-2025 ambulatory [facility] Start: 04-15-2025 End: 04-15-2025 Subsequent hospital visit by physician Radha Segovia Echo/Vasc Room 2 [facility] Comment on above: Mitral valve insuffi ciency, unspecified etiology Start: 04-14-2025 Non-patient / Non-visit Heather Kline CMA -[facility] Work Phone: Start: 04-14-2025 [facility] Work Phone: Start: 04-13-2025 End: 04-13-2025 ambulatory Romain Mendoza Facility:[facility] Start: 04-13-2025 Non-patient / Non-visit Smith Mendoza MD -[facility] Work Phone: Start: 04-13-2025 Romain roche MD -[facility] Work Phone: Start: 04-12-2025 Non-patient / Non-visit [facility] [employer] [facility] Work Phone: Start: 04-12-2025 [facility] [employer] [facility] Work Phone: Start: 04-11-2025 Non-patient / Non-visit Angel Mejía MD [facility] Dialysis Unit Work Phone: Start: 04-11-2025 Angel Mejía MD [facility] Di alysis Unit Work Phone: Start: 04-01-2025 End: 04-01-2025 ambulatory Eusebio Olivares DO Work Phone: [facility] Work Phone: Start: 04-01-2025 End: 04-01-2025 Patient encounter procedure Romain Mendoza MD -[facility] Work Phone: Start: 04-01-2025 End: 04-01-2025 Romain Mendoza MD -[facility] Work Phone: Start: 03-12-2025 Non-patient / Non-visit Nancy Haas MD -[facility] Work Phone: Start: 03-12-2025 Nancy Haas MD -[facility] Work Phone: Start: 03-11-2025 Non-patient / Non-visit Angel Mejía MD [facility] Dialysis Unit Work Phone: Start: 03-11-2025 Angel Mejía MD -[facility]sis [facility] Work Phone: Start: 02-09-2025 Non-patient / Non-visit Bryce marin MD -[facility] Work Phone: Start: 01-21-2025 End: 01-21-2025 Admission to same day surgery center Eusebio Ball DO Work Phone: [facility] Work Phone: Start: 01-21-2025 End: 01-21-2025 ambulatory Eusebio Ball DO Work Phone: [facility] Work Phone: Start: 01-19-2025 End: 01-19-2025 Patient encounter procedure Eusebio Ball DO Work Phone: [facility]-Pre-Surgical Testing Work Phone: Start: 01-19-2025 End: 01-19-2025 ambulatory Eusebio Ball DO Work Phone: [facility] Work Phone: Start: 01-19-2025 Encounter for preprocedural laboratory examination Denilson Gomez [facility] Start: 01-13-2025 Non-patient / Non-visit Bryce marin MD -[facility] Work Phone: Start: 01-12-2025 End: 01-12-2025 ambulatory Eusebio Ball DO Work Phone: [facility] Work Phone: Start: 01-12-2025 End: 01-12-2025 Patient encounter procedure Eusebio Ball DO Work Phone: [facility] Work Phone: Start: 12-22-2024 End: 12-22-2024 ambulatory [facility] Start: 12-17-2024 Non-patient / Non-visit Benjam in Ball DO Work Phone: [facility] Work Phone: Start: 12-16-2024 End: 12-17-2024 Emergency department patient visit Eusebio Olivares DO Work Phone: [facility]-Emergency Room Work Phone: Start: 12-10-2024 End: 12-10-2024 [...] valgus), left Start: 12-10-2024 Non-patient / Non-visit Bg Olivares DO Work Phone: [facility] Work Phone: Start: 11-24-2024 End: 11-24-2024 Office outpatient visit 25 minutes Brianna Gomez Work Phone: [facility] Comment on above: ASHD (arteriosclerot ic heart disease); History of MD (myocardial infarction); Status post insertion of drug eluting coronary artery stent; Aortic valve disorder; ESRD (end stage renal disease) on dialysis (Multi); Vapes nicotine containing substance Start: 11-24-2024 End: 11-24-2024 ambulatory [facility] Start: 11-19-2024 ambulatory STEPHEN Hough [facility] Start: 11-09-2024 Non-patient / Non-visit Benjam in Ball DO Work Phone: [facility] Work Phone: Start: 11-06-2024 Non-patient / Non-visit Benjam in Ball DO Work Phone: [facility] Work Phone: Start: 11-03-2024 End: 11-03-2024 ambulatory [facility] Start: 11-03-2024 End: 11-03-2024 ambulatory YESIKA [facility] Start: 11-02-2024 Non-patient / Non-visit Benjam in Ball DO Work Phone: [facility] Work Phone: Start: 11-01-2024 End: 11-02-2024 ambulatory Eusebio Ball Facility:[facility] Start: 11-01-2024 End: 11-02-2024 Evaluation and management of inpatient Eusebio Ball DO Work Phone: [facility] Work Phone: Start: 11-01-2024 End: 11-02-2024 observation encounter Eusebio Ball DO Work Phone: [facility] Work Phone: Start: 10-30-2024 End: 10-30-2024 Emergency department patient visit Eusebio Ball DO Work Phone: [facility]-Emergency Room Work Phone: Start: 10-27-2024 ambulatory MARIS SINHA [facility] Start: 10-14-2024 End: 10-14-2024 ambulatory Eusebio Ball DO Work Phone: [facility] Work Phone: Start: 10-14-2024 End: 10-14-2024 Patient encounter procedure Eusebio Ball DO Work Phone: [facility] Work Phone: Start: 10-12-2024 Non-patient / Non-visit Benjam in Ball DO Work Phone: [facility] Physician [facility] Work Phone: Start: 10-05-2024 Non-patient / Non-visit Benjam in Ball DO Work Phone: [facility] Physician [facility] Work Phone: Start: 09-21-2024 Non-patient / Non-visit Benjam in Ball DO Work Phone: [facility] Physician [facility] Work Phone: Start: 09-18-2024 Non-patient / Non-visit Benjam in Ball DO Work Phone: [facility] Physician [facility] Work Phone: Start: 09-17-2024 Non-patient / Non-visit Benjam in Ball DO Work Phone: [facility] Physician [facility] Work Phone: Start: 09-17-2024 Eusebio Ball DO Work Phone: [facility] Phys[facility] Work Phone: Start: 09-16-2024 Non-patient / Non-visit Benjam in Ball DO Work Phone: [facility] Phys[facility] Work Phone: Start: 09-16-2024 Eusebio Ball DO Work Phone: [facility] Physician [facility] Work Phone: Start: 09-16-2024 End: 09-17-2024 Evaluation and management of inpatient Eusebio Ball DO Work Phone: [facility] Work Phone: Start: 09-16-2024 End: 09-17-2024 Eusebio Ball DO Work Phone: [facility] Work Phone: Start: 09-15-2024 End: 09-15-2024 ambulatory [facility] Start: 09-11-2024 Non-patient / Non-visit Benjam in Ball DO Work Phone: [facility] Work Phone: Start: 09-08-2024 Encounter for other preprocedural examination [facility] Start: 09-08-2024 ambulatory [facility] Start: 09-08-2024 ambulatory [facility] Start: 09-08-2024 Encounter for other preprocedural examination [facility] Start: 09-02-2024 End: 09-02-2024 ambulatory Eusebio Ball DO Work Phone: [facility] Work Phone: Start: 09-02-2024 End: 09-02-2024 Encounter for general adult medical examination without abnormal findings Eusebio Ball DO Work Phone: [facility] Start: 09-02-2024 End: 09-02-2024 Patient encounter procedure Eusebio Ball DO Work Phone: [facility] Work Phone: Start: 09-02-2024 End: 09-02-2024 Eusebio Ball DO Work Phone: [facility] Work Phone: Start: 09-01-2024 End: 09-01-2024 ambulatory [facility] Start: 08-28-2024 Non-patient / Non-visit Benjam in Ball DO Work Phone: [facility] Work Phone: Start: 08-28-2024 Eusebio Ball DO Work Phone: [facility] Work Phone: Start: 08-28-2024 End: 08-29-2024 Evaluation and management of inpatient Eusebio Ball DO Work Phone: [facility] Work Phone: Start: 08-28-2024 End: 08-29-2024 Eusebio Ball DO Work Phone: [facility] Work Phone: Start: 08-21-2024 Non-patient / Non-visit Benjam in Ball DO Work Phone: [facility] Work Phone: Start: 08-21-2024 Eusebio Ball DO Work Phone: [facility] Work Phone: Start: 08-17-2024 End: 08-17-2024 External Result Encounter Donna Villeda Louiseato PYROMETER TEMPERATURE REGULATOR Work Phone: [facility] External [facility] Unsolicited Start: 08-17-2024 End: 08-17-2024 External Result Encounter Donna Villeda Emilyionato PYROMETER TEMPERATURE REGULATOR Work Phone: [facility] External Department Unsolicited Start: 08-17-2024 End: 08-17-2024 Eusebio Ball DO Work Phone: [facility] Work Phone: Start: 08-17-2024 End: 08-17-2024 Emergency department patient visit Eusebio Ball DO Work Phone: [facility] Work Phone: Start: 08-16-2024 Patient encounter status Thanh lopez Ball DO Work Phone: [facility] Start: 08-13-2024 End: 08-13-2024 ambulatory [facility] Start: 08-13-2024 ambulatory [facility] Start: 08-13-2024 Encounter for preprocedural cardiovascular examination [facility] Start: 08-11-2024 Non-patient / Non-visit Benjam in Ball DO Work Phone: [facility] [place] Work Phone: Start: 08-11-2024 Eusebio Ball DO Work Phone: [facility] [place] Work Phone: Start: 08-04-2024 Non-patient / Non-visit Benjam in Ball DO Work Phone: [facility] Physician [facility] Work Phone: Start: 08-04-2024 Eusebio Ball DO Work Phone: [facility] Physician [facility] Work Phone: Start: 08-01-2024 End: 08-01-2024 Eusebio Ball DO Work Phone: [facility] Work Phone: Start: 08-01-2024 End: 08-01-2024 Emergency department patient visit Eusebio Ball DO Work Phone: [facility] Work Phone: Start: 07-14-2024 End: 07-14-2024 ambulatory JO CHARLES [facility] Start: 07-14-2024 ambulatory YESIKA CARDENAS [facility] Start: 07-13-2024 Non-patient / Non-visit Benjam in Ball DO Work Phone: [facility] Physician [facility] Work Phone: Start: 07-13-2024 Eusebio Ball DO Work Phone: [facility] Work Phone: Start: 06-22-2024 Non-patient / Non-visit Benjam in Ball DO Work Phone: [facility] Work Phone: Start: 06-22-2024 End: 06-22-2024 Evaluation and management of inpatient Eusebio Olivares DO Work Phone: [facility] Work Phone: Start: 06-22-2024 End: 06-22-2024 Eusebio Olivares DO Work Phone: [facility] Work Phone: Start: 06-22-2024 End: 06-22-2024 ambulatory [facility] Facility[facility] Start: 06-15-2024 Non-patient / Non-visit Bg in Ball DO Work Phone: [facility] Work Phone: Start: 06-11-2024 End: 06-11-2024 Office outpatient visit 40 minutes Brianna Duffdon DO Work Phone: [facility] Comment on above: ASHD (arteriosclerot ic heart disease); Congestive heart failure, unspecified HF chronicity, unspecified heart failure type; Essential hypertension, benign; History of MD (myocardial infarction); Mixed hyperlipidemia; Status post insertion of drug eluting coronary artery stent; ESRD (end stage renal disease) on dialysis (Multi); Type 2 diabetes mellitus with chronic kidney disease on chronic dialysis, with long-term current use of insulin (Multi); BMI 21.0-21.9, adult; Current every day smoker Start: 06-11-2024 End: 06-11-2024 ambulatory [facility] Start: 06-04-2024 End: 06-04-2024 Bamboo flowsheet David Berg DPM Work Phone: [facility] Start: 06-04-2024 End: 06-04-2024 Bamboo flowsheet David Berg DPM Work Phone: [facility] Start: 06-04-2024 End: 06-04-2024 Patient encounter procedure David Berg DPM Work Phone: [facility] Comment on above: Type 2 diabetes cece itus without complication, with long-term current use of insulin ([facility]) (Primary Dx); Pain due to onychomycosis of toenails of both feet; Hav (hallux abducto valgus), left Start: 06-04-2024 End: 06-04-2024 ambulatory DAVID BERG Not Available Start: 04-29-2024 End: 04-29-2024 ambulatory DO Eusebio Ball Work Phone: [facility] Work Phone: Start: 04-29-2024 End: 04-29-2024 Patient encounter procedure DO Eusebio Ball Work Phone: [facility] Work Phone: Start: 04-11-2024 Non-patient / Non-visit DO Lauri reyes Ball Work Phone: [facility] Work Phone: Start: 03-26-2024 End: 03-26-2024 ambulatory DAVID BERG Not Available Start: 03-19-2024 End: 03-19-2024 ambulatory DO Eusebio Olivares Work Phone: [facility] Work Phone: Start: 03-19-2024 End: 03-19-2024 Patient encounter procedure DO Eusebio Ball Work Phone: [facility] Physician [facility] Work Phone: Start: 03-11-2024 Non-patient / Non-visit DO Lauri amy Ball Work Phone: [facility] Work Phone: Start: 03-09-2024 Non-patient / Non-visit DO Lauri amy Ball Work Phone: [facility] Physician [facility] Work Phone: Start: 03-09-2024 End: 03-10-2024 Evaluation and management of inpatient DO Eusebio Ball Work Phone: [facility] Work Phone: Start: 03-04-2024 Non-patient / Non-visit DO Lauri amy Ball Work Phone: [facility] Physician [facility] Work Phone: Start: 03-01-2024 Non-patient / Non-visit DO Lauri amy Ball Work Phone: [facility] Physician [facility] Work Phone: Start: 03-01-2024 End: 03-02-2024 Evaluation and management of inpatient DO Eusebio Ball Work Phone: [facility] Work Phone: Start: 02-29-2024 Non-patient / Non-visit DO Lauri amy Ball Work Phone: [facility] Physician [facility] Work Phone: Start: 02-10-2024 Non-patient / Non-visit DO Lauri amy Ball Work Phone: [facility] Physician [facility] Work Phone: Start: 01-13-2024 Non-patient / Non-visit DO Lauri amy Ball Work Phone: [facility] Physician [facility] Work Phone: Start: 01-11-2024 Non-patient / Non-visit DO Lauri amy Ball Work Phone: [facility] Physician [facility] Work Phone: Start: 01-10-2024 End: 01-10-2024 ambulatory DO Eusebio Ball Work Phone: [facility] Work Phone: Start: 01-10-2024 End: 01-10-2024 Departed Referred DO Eusebio Ball Work Phone: [facility]-Dialysis Work Phone: Start: 01-09-2024 End: 01-09-2024 ambulatory DAVID BERG Not Available Start: 01-09-2024 End: 01-09-2024 ambulatory DO Eusebio Olivares Work Phone: [facility] Work Phone: Start: 01-09-2024 End: 01-09-2024 Patient encounter procedure DO Eusebio Olivares Work Phone: [facility] Physician [facility] Work Phone: Start: 12-11-2023 Non-patient / Non-visit DO Lauri rutherfordjose Olivares Work Phone: [facility] Physician [facility] Work Phone: Start: 12-03-2023 End: 12-03-2023 Office outpatient visit 25 minutes Brianna Gomez DO Work Phone: [facility] Comment on above: ASHD (arteriosclerot ic heart disease); Essential hypertension, benign; Mixed hyperlipidemia; History of MD (myocardial infarction); Status post insertion of drug eluting coronary artery stent; ESRD (end stage renal disease) on dialysis (Multi); Current every day smoker; Type 2 diabetes mellitus with chronic kidney disease on chronic dialysis, with long-term current use of insulin (Multi); BMI 22.0-22.9, adult Start: 11-26-2023 Non-patient / Non-visit DO Lauri Olivares Work Phone: [facility] Physician [facility] Work Phone: Start: 11-26-2023 End: 11-26-2023 Admission to same day surgery center DO Eusebio Olivares Work Phone: [facility] [place] Start: 11-26-2023 End: 11-26-2023 ambulatory DO Eusebio Olivares Work Phone: [facility] Work Phone: Start: 11-18-2023 End: 11-19-2023 ambulatory Mickey GUERIN Facility:[facility] Start: 11-18-2023 End: 11-18-2023 Patient encounter procedure Mickey GUERIN [facility] Start: 11-14-2023 End: 11-14-2023 ambulatory DO Eusebio Ball Work Phone: [facility] Work Phone: Start: 11-14-2023 End: 11-14-2023 Patient encounter procedure DO Eusebio Ball Work Phone: [facility] Work Phone: Start: 11-10-2023 Non-patient / Non-visit DO Lauri Olivares Work Phone: [facility] Work Phone: Start: 10-31-2023 Non-patient / Non-visit DO Lauri amy Olivares Work Phone: [facility] Work Phone: Start: 10-31-2023 End: 10-31-2023 Admission to same day surgery center DO Eusebio Ball Work Phone: [facility] Ctr-Interventional Radiology Work Phone: Start: 10-31-2023 End: 10-31-2023 ambulatory DO Eusebio Marshall Work Phone: [facility] Work Phone: Start: 10-17-2023 End: 10-17-2023 Patient encounter procedure DO Eusebio Ball Work Phone: [facility] Physician [facility] Work Phone: Start: 10-17-2023 End: 10-17-2023 Patient encounter procedure DO Eusebio Ball Work Phone: [facility] Work Phone: Start: 10-12-2023 Non-patient / Non-visit DO Lauri amy Ball Work Phone: [facility] Work Phone: Start: 10-02-2023 End: 10-02-2023 Emergency department patient visit DO Eusebio Olivares Work Phone: [facility] Work Phone: Start: 10-01-2023 End: 10-01-2023 Patient encounter procedure DO [facility]usebio Olivares [facility] Work [facility]: Start: 10-01-2023 Registered Recurring DO Bg in Ball Work Phone: [facility] Acute Work Phone: Start: 09-30-2023 End: 09-30-2023 Office outpatient visit 15 minutes Nelida Carrington PYROMETER TEMPERATURE REGULATOR Work Phone: [facility] Comment on above: Left shoulder pain, unspecified chronicity (Primary Dx); Impingement of left shoulder; Internal derangement of left shoulder Start: 09-24-2023 External Result Encounter Va Mercadonava PYROMETER TEMPERATURE REGULATOR Work Phone: [facility] External Department Unsolicited Start: 09-24-2023 External Result Encounter Va Mercadonava PYROMETER TEMPERATURE REGULATOR Work Phone: [facility] External Department Unsolicited Start: 09-05-2023 End: 09-05-2023 ambulatory Eusebio Olivares Other [facility] [employer] Other Start: 09-05-2023 Telephone encounter Eusebio [facility] Start: 08-29-2023 Office outpatient vi sit 10 minutes Romain Mendoza [facility] Start: 08-29-2023 End: 08-29-2023 ambulatory DO Eusebio Olivares Work Phone: [facility] Work Phone: Start: 08-29-2023 End: 08-29-2023 Patient encounter procedure DO Eusebio Olivares Work Phone: [facility] Ctr-Ultrasound [facility] Start: 08-29-2023 End: 08-29-2023 Patient encounter procedure DO Eusebio Ball Work Phone: [facility] Work Phone: Start: 08-26-2023 End: 08-26-2023 ambulatory Eusebio Olivares Other [employer] Other Start: 08-26-2023 Telephone encounter Eusebio [facility] Start: 08-18-2023 End: 08-18-2023 Evaluation and management of inpatient DO Eusebio Ball Work Phone: [facility] Work Phone: Start: 08-18-2023 End: 08-18-2023 observation encounter DO Eusebio Olivares Work Phone: [facility] Work Phone: Start: 08-13-2023 End: 08-13-2023 ambulatory Eusebio Olivares Other [employer] Other Start: 08-13-2023 Office outpatient vi sit 25 minutes Eusebio Ball [facility] Start: 08-13-2023 End: 08-13-2023 Patient encounter procedure DO Eusebio Ball Work Phone: [facility] Work Phone: Start: 07-22-2023 End: 07-22-2023 ambulatory Eusbeio Olivares Other [employer] Other Start: 07-22-2023 Telephone encounter Eusebio Olivares [facility] Start: 07-16-2023 End: 07-16-2023 ambulatory Eusebio Ball Other [employer] Other Start: 07-16-2023 Office outpatient vi sit 25 minutes Eusebio Ball [facility] Start: 07-16-2023 End: 07-16-2023 Patient encounter procedure DO Eusebio Ball Work Phone: [facility] Work Phone: Start: 07-04-2023 End: 07-04-2023 ambulatory Romain Florezkaley Other [place] [employer] Other Start: 07-04-2023 Office outpatient vi sit 10 minutes Romain Mendoza [facility] Start: 07-02-2023 End: 07-02-2023 ambulatory DO Eusebio Ball Work Phone: [facility] Work Phone: Start: 07-02-2023 End: 07-02-2023 Patient encounter procedure DO Eusebio Ball Work Phone: [facility]tr-Ultrasound [facility] Start: 06-17-2023 End: 06-17-2023 Admission to same day surgery center DO Eusebio Ball Work Phone: [facility]-Interventional Radiology Work Phone: Start: 06-17-2023 End: 06-17-2023 ambulatory DO Eusebio Ball Work Phone: [facility] Work Phone: Start: 06-13-2023 Office outpatient vi sit 15 minutes Zina Childs [facility] Start: 06-13-2023 End: 06-13-2023 ambulatory DO Eusebio Ball Work Phone: [facility] [employer] Other Start: 06-13-2023 End: 06-13-2023 Patient encounter procedure DO Eusebio Ball Work Phone: [facility]ound [facility] Start: 05-28-2023 End: 05-28-2023 ambulatory Eusebio Ball Other [place] [employer] Other Start: 05-28-2023 Office outpatient vi sit 15 minutes Eusebio Ball [facility] Start: 04-23-2023 Rx Renewal Eusebio E Bal l Work Phone: [facility] DO Work Phone: Start: 04-12-2023 End: 04-12-2023 Admission to same day surgery center DO Eusebio Ball Work Phone: [facility]-Interventional Radiology Work Phone: Start: 04-12-2023 End: 04-12-2023 ambulatory DO Eusebio Ball Work Phone: [facility] Work Phone: Start: 04-10-2023 End: 04-10-2023 ambulatory Romain Mendoza Other [place] [employer] Other Start: 04-10-2023 Office outpatient vi sit 15 minutes Romain Mendoza [facility] Start: 04-10-2023 Telephone encounter Romain Chapman [facility] Start: 04-10-2023 End: 04-10-2023 Patient encounter procedure DO Eusebio Ball Work Phone: [facility]Ul[facility]ound [facility] Start: 03-26-2023 End: 03-26-2023 ambulatory DO Eusebio Ball Work Phone: [facility] Work Phone: Start: 03-26-2023 End: 03-26-2023 Registered Recurring DO Eusebio Ball Work Phone: [facility] Work Phone: Start: 02-27-2023 Office outpatient vi sit 25 minutes Angel Joyce [facility] Start: 02-27-2023 End: 02-27-2023 Patient encounter procedure Zina Naz Other [facility]-Ultrasound [facility] Start: 02-27-2023 Telephone encounter Angel Joyce [facility] Start: 02-27-2023 Registered Recurring DO Benjam in Ball Work Phone: [facility] Work Phone: Start: 02-27-2023 End: 02-27-2023 ambulatory DO Eusebio Ball Work Phone: [facility] [employer] Other Start: 02-26-2023 Office outpatient vi sit 15 minutes Eusebio Arreguin [place] Work Phone: [facility] DO Work Phone: Start: 02-26-[address] Brianna Rollins opal Gomez Facility: Start: 02-11-2023 End: 02-11-2023 ambulatory Angel Joyce Other [facility] [employer] Other Start: 02-11-2023 Office outpatient vi sit 15 minutes Angel Joyce [facility] Start: 02-07-2023 Rx Renewal Eusebio E Bal l Work Phone: [facility] [employer] DO Work Phone: Start: 02-07-2023 Rx Renewal Eusebio E Bal l Work Phone: [facility] 250 DO Work Phone: Start: 02-04-2023 Telephone encounter Eusebio Olivares [facility] Start: 02-04-2023 End: 02-04-2023 Admission to same day surgery center DO Eusebio Ball Work Phone: [facility] Ctr-Supplier Specialist Work Phone: Start: 02-04-2023 End: 02-04-2023 ambulatory DO Eusebio Ball Work Phone: [facility] Work Phone: Start: 01-31-2023 Chart Update Eusebio Arreguin Bal l Work Phone: [facility] 250 DO Work Phone: Start: 01-31-2023 End: 01-31-2023 ambulatory DO Eusebio Ball Work Phone: [facility] C[facility] Work Phone: Start: 01-31-2023 End: 01-31-2023 Patient encounter procedure DO Eusebio Ball Work Phone: [facility] [employer] Work Phone: Start: 01-23-2023 End: 01-23-2023 ambulatory Romain Mendoza Other [facility] [employer] Other Start: 01-23-2023 Postop follow up vis it related to original px Romain Mendoza [facility] Start: 01-16-2023 Rx Renewal Eusebio almaraz Work Phone: [facility] DO Work Phone: Start: 01-16-2023 Office outpatient vi sit 40 minutes Eusebio Olivares Work Phone: [facility] [facility] DO Work Phone: Start: 01-16-[address] Brianna Gomez Facility: Start: 01-09-[address] Eusebio Olivares Facility:[id number] Start: 01-09-2023 End: 01-09-2023 Evaluation and management of inpatient DO Eusebio Olivares Work Phone: [facility] Work Phone: Start: 12-25-2022 End: 12-25-2022 Emergency department patient visit DO Mickey Gr Work Phone: [facility]Emergency [facility] Work Phone: Start: 12-25-2022 End: 12-25-2022 ambulatory DO Mickey Villeda Simón Work Phone: [facility] Work Phone: Start: 12-25-2022 End: 12-25-2022 Patient encounter procedure DO Mickey Gr Work Phone: [facility] [place] Work Phone: Start: 12-18-2022 End: 12-18-2022 Admission to same day surgery center DO Mickey Gr Work Phone: [facility] [place] Start: 12-11-2022 End: 12-11-2022 Admission to same day surgery center DO Mickey Gr Work Phone: [facility] Ctr-Interventional Radiology Work Phone: Start: 12-11-2022 End: 12-11-2022 ambulatory DO Mickey Gr Work Phone: [facility] Work Phone: Start: 12-06-2022 (INJECTION) INJECTION Angel Joyce [facility] Start: 12-06-2022 End: 12-06-2022 ambulatory Angel Joyce Other [employer] Other Start: 12-04-2022 End: 12-04-2022 Admission to same day surgery center DO Eusebio Ball Work Phone: [facility]-Interventional Radiology Work Phone: Start: 12-04-2022 End: 12-04-2022 ambulatory DO Eusebio Ball Work Phone: [facility] Work Phone: Start: 11-28-2022 End: 11-28-2022 Patient encounter procedure Zina Childs [facility] Start: 11-28-2022 End: 11-28-2022 ambulatory DO Eusebio Ball Work Phone: [employer] Other Start: 11-26-2022 End: 11-26-2022 ambulatory Angel Joyce Other [employer] Other Start: 11-26-2022 Telephone encounter Angel Joyce [facility] Start: 11-20-2022 End: 11-20-2022 ambulatory DO Eusebio Ball Work Phone: [facility] Work Phone: Start: 11-20-2022 End: 11-20-2022 Patient encounter procedure DO Eusebio Ball Work Phone: [facility]-Lab [place] Work Phone: Start: 11-19-2022 End: 11-19-2022 ambulatory Angel Joyce Other [facility] [employer] Other Start: 11-19-2022 Office outpatient vi sit 25 minutes Angel Joyce [facility] Start: 11-14-2022 [facility] Provider: Brianna Gomez, Status: Pen, Time: 2:00 PM Eusebio Olivares Work Phone: [facility] [employer] 250 DO Work Phone: Start: 11-14-2022 End: 11-14-2022 ambulatory DO Eusebio Marshall Work Phone: [facility] [employer] Other Start: 11-14-2022 End: 11-14-2022 Departed Referred DO Eusebio Marshall Work Phone: [facility] Ctr-Supplier Specialist Work Phone: Start: 11-14-2022 Telephone encounter Angel Joyce [facility] Start: 11-13-2022 Chart Update Eusebio almaraz Work Phone: [facility] [employer] 250 DO Work Phone: Start: 11-12-2022 Telephone encounter [facility] Start: 11-12-2022 End: 11-12-2022 ambulatory DO Eusebio Olivares Work Phone: [facility] Ctr Work Phone: Start: 11-12-2022 End: 11-12-2022 Patient encounter procedure DO Eusebio Marshall Work Phone: [facility]-Pre-Surgical Testing Work Phone: Start: 11-06-2022 Telephone encounter Eusebio Olivares Work Phone: [facility] [employer] 250 DO Work Phone: Start: 10-23-2022 End: 10-23-2022 ambulatory Eusebio Olivares Other [facility] [employer] Other Start: 10-23-2022 Telephone encounter Eusebio Olivares [facility] Start: 10-18-2022 Office outpatient vi sit 25 minutes Eusebio Olivares Work Phone: [facility] 250 DO Work Phone: Start: 10-18-[address] Eusebio Olivares Facility: Start: 10-16-2022 End: 10-16-2022 ambulatory Angel Joyce Other [facility] [employer] Other Start: 10-16-2022 Office outpatient vi sit 25 minutes Angel Joyce [facility] Start: 10-10-2022 End: 10-10-2022 Patient encounter procedure DO Eusebio Marshall Work Phone: [facility]-Lab [place] Work Phone: Start: 10-10-2022 End: 10-10-2022 ambulatory DO Eusebio Olivares Work Phone: [facility] Ctr Work Phone: Start: 10-08-2022 End: 10-08-2022 ambulatory Eusebio Olivares Other [employer] Other Start: 10-08-2022 Office outpatient vi sit 25 minutes [facility] Start: 10-03-[address] Eusebio Olivares Facility:[id number] Start: 10-03-2022 End: 10-03-2022 Evaluation and management of inpatient DO Zeus Bradley Work Phone: [facility] C[facility] Work Phone: Start: 10-03-2022 End: 10-03-2022 observation encounter DO Zeus Bradley Work Phone: [facility] C[facility] Work Phone: Start: 09-17-2022 End: 09-17-2022 Admission to same day surgery center DO Eusebio Marshall Work Phone: [facility] [place] Start: 09-17-2022 End: 09-17-2022 ambulatory DO Eusebio Ball Work Phone: [facility] Work Phone: Start: 09-12-2022 ambulatory ANGEL JOYCE Facility:H 1 Start: 09-10-2022 End: 09-10-2022 Patient encounter procedure DO Eusebio Ball Work Phone: [facility]-Pre-Surgical Testing Work Phone: Start: 09-10-2022 End: 09-10-2022 ambulatory DO Eusebio Ball Work Phone: [facility] Work Phone: Start: 09-10-2022 End: 09-10-2022 Registered Recurring DO Eusebio Ball Work Phone: [facility]Cancer Center Work Phone: Start: 09-05-2022 End: 09-05-2022 ambulatory DO Eusebio Ball Work Phone: [facility] Work Phone: Start: 09-05-2022 Office outpatient ne w 45 minutes Romain Mendoza [facility] Start: 09-05-2022 End: 09-05-2022 Patient encounter procedure DO Eusebio Ball Work Phone: [facility]Ultrasound [place] Work Phone: Start: 09-01-2022 Registered Recurring DO Benjam in Ball Work Phone: [facility] Work Phone: Start: 08-30-2022 End: 08-30-2022 ambulatory Angel Joyce Other [facility] [employer] Other Start: 08-30-2022 Office outpatient vi sit 25 minutes Angel Joyce [facility] Start: 08-30-2022 Telephone encounter Angel Joyce [facility] Start: 08-29-2022 End: 08-29-2022 Patient encounter procedure Mickey GUERIN [facility] [place] Start: 08-17-2022 End: 08-17-2022 ambulatory DO Eusebio Olivares Work Phone: [facility] C[facility] Work Phone: Start: 08-17-2022 End: 08-17-2022 Patient encounter procedure DO Eusebio Olivares Work Phone: [facility]-Lab [place] Work Phone: Start: 08-13-2022 End: 08-13-2022 Evaluation and management of inpatient DO Eusebio Marshall Work Phone: [facility] C[facility]-3 [facility] Work Phone: Start: 08-13-2022 End: 08-13-2022 observation encounter DO Eusebio Olivares Work Phone: [facility] Work Phone: Start: 08-02-2022 Telephone encounter [facility] Comment on above: Returning Patient's Call Start: 07-19-2022 Chart Update Eusebio almaraz Work Phone: [facility] 250 DO Work Phone: Start: 07-19-2022 End: 07-19-2022 Patient encounter procedure DO Eusebio Marshall Work Phone: [facility] Ctr-Electrodiagnostics Work Phone: Start: 07-19-[address] Eusebio Olivares Facility:[id number] Start: 07-15-2022 Adult health examination Tavo Mendoza Other [facility] [employer] Other Start: 07-09-2022 End: 07-09-2022 Emergency department patient visit DO Eusebio Olivares Work Phone: [facility]-Emergency Room Start: 07-05-[address] Eusebio Olivares Facility: Start: 07-05-2022 Office outpatient vi sit 25 minutes Eusebio Arreguin Ball Work Phone: [facility] 250 DO Work Phone: Start: 07-04-2022 End: 07-04-2022 ambulatory Angel Joyce Other [facility] [employer] Other Start: 07-04-2022 Office outpatient vi sit 15 minutes Angel Joyce [facility] Start: 06-29-2022 End: 06-29-2022 ambulatory DO Eusebio Olivares Work Phone: [facility] Work Phone: Start: 06-29-2022 End: 06-29-2022 Patient encounter procedure DO Eusebio Olivares Work Phone: [facility] C[facility]-Lab [place] Start: 06-13-2022 End: 06-13-2022 Emergency department patient visit DO Eusebio Olivares Work Phone: [facility]Emergency Room Start: 06-03-2022 End: 06-03-2022 Emergency department patient visit DO Eusebio Olivares Work Phone: [facility] Start: 05-29-2022 End: 05-29-2022 ambulatory DO Eusebio Olivares Work Phone: [facility] Work Phone: Start: 05-29-2022 End: 05-29-2022 Registered Recurring DO Eusebio Ball Work Phone: [facility]Cancer Center Start: 05-23-2022 End: 05-23-2022 ambulatory Angel Joyce Other [facility] [employer] Other Start: 05-23-2022 Office outpatient vi sit 25 minutes Angel Joyce [facility] Start: 05-21-2022 End: 05-22-2022 Emergency department patient visit DO Eusebio Ball Work Phone: [facility]Emergency Room Start: 05-18-2022 End: 05-18-2022 Admission to same day surgery center DO Eusebio Ball Work Phone: [facility]-CT Scan [facility] Start: 05-18-2022 End: 05-18-2022 ambulatory DO Eusebio Ball Work Phone: [facility] Work Phone: Start: 05-15-2022 Registered Recurring DO Benjam in Ball Work Phone: [facility] Start: 05-09-2022 End: 05-09-2022 Registered Recurring DO Eusebio Ball Work Phone: [facility] Start: 04-29-2022 End: 04-29-2022 ambulatory Angel Joyce Other [employer] Other Start: 04-29-2022 Telephone encounter Angel Joyce [facility] Start: 04-20-2022 (INJECTION) INJECTION Angel Joyce [facility] Start: 04-20-2022 End: 04-20-2022 ambulatory Angel Joyce Other [employer] Other Start: 04-20-2022 Telephone encounter Angel Joyce [facility] Start: 04-20-2022 End: 04-20-2022 Patient encounter procedure DO Eusebio Ball Work Phone: [facility] Start: 04-09-2022 End: 04-10-2022 Emergency department patient visit DO Eusebio Ball Work Phone: [facility]Emergency Room Start: 04-04-2022 End: 04-04-2022 ambulatory Aziz Bakhous Other [employer] Other Start: 04-04-2022 Telephone encounter Aziz Bakhous [facility] Start: 03-29-2022 End: 03-29-2022 ambulatory Angel Joyce Other [facility] [employer] Other Start: 03-29-2022 Office outpatient vi sit 15 minutes Angel Joyce [facility] Start: 03-29-2022 Telephone encounter Angel Joyce [facility] Start: 03-14-2022 End: 03-14-2022 ambulatory Agnel Joyce Other [facility] [employer] Other Start: 03-14-2022 Telephone encounter Angel Joyce [facility] Start: 03-13-2022 End: 03-13-2022 Patient encounter procedure DO Eusebio Olivares Work Phone: [facility] Start: 03-09-2022 End: 03-09-2022 Patient encounter procedure DO Eusebio Marshall Work Phone: [facility] Start: 01-24-2022 Rx Renewal Eusebio almaraz Work Phone: [facility] 250 DO Work Phone: Start: 12-25-2021 End: 12-25-2021 Patient encounter procedure DO Eusebio Marshall Work Phone: [facility] Start: 12-19-2021 End: 12-19-2021 ambulatory Angel Joyce Other [facility] [employer] Other Start: 12-19-2021 Office outpatient vi sit 25 minutes Angel Joyce [facility] Start: 12-18-2021 Registered Recurring DO Bg in Ball Work Phone: [facility]-Cardiac Rehabilitation Start: 12-15-2021 Rx Renewal Eusebio almaraz Work Phone: [facility] 250 DO Work Phone: Start: 12-01-[address] ADILSON VO Facil ity:H1 Start: 11-24-2021 Transitional care dat [facility] 7 day discharge Eusebio Olivares Work Phone: [facility] 250 DO Work Phone: Start: 11-08-2021 End: 11-08-2021 ambulatory Angel Joyce Other [facility] [employer] Other Start: 11-08-2021 Office outpatient ne w 45 minutes Angel Joyce [facility] Start: 11-07-2021 End: 11-07-2021 ambulatory Angel Joyce Other [facility] [employer] Other Start: 11-07-2021 Telephone encounter Angel Joyce [facility] Start: 10-23-2021 End: 10-24-[address] EUSEBIO OLIVARES Facility: Start: 10-02-2021 End: 10-02-2021 ambulatory ZITA ALLEN Facility:[facility] Start: 10-01-2021 End: 10-01-2021 Emergency department patient visit BRITTNI PAGAN Facility:[facility] Procedures Date Procedure Procedure Detail Performing Clinician Start: 06-02-2025 Ct angiography chest w/contrast/noncontrast Varsha Mcdonnell MD Work Phone: Start: 05-31-2025 Plain chest X-ray Thanh min Ball DO Work Phone: Start: 05-29-2025 Plain chest X-ray Thanh min Ball DO Work Phone: Start: 04-15-2025 Echo transthorc r-t 2d w/wo m-mode rec f-up/lmtd Brianna Gomez DO Work Phone: Start: 04-01-2025 Ultrasonography of arteriovenous fistula Eusebio Olivares DO Work Phone: Start: 01-21-2025 CL Closure Device Placement 0 Eusebio Olivares DO Work Phone: Start: 01-21-2025 CL FFR/IFR Initial Vessel Eusebio Olivares DO Work Phone: Start: 01-21-2025 CL LHC [...] Bacteria identified in Blood by Culture Eusebio Olivares DO Work Phone: Start: 08-27-2024 Eusebio B all DO Work Phone: Start: 08-17-2024 Plain chest X-ray Thanh min Ball DO Work Phone: Start: 08-17-2024 COVID-19 / FLU A/B / RSV PCR ([facility] Donna Shaw [employer]PER[employer]UL[employer] Work Phone: Start: 08-17-2024 End: 08-17-2024 Viral nucleic acid assay Eusebio Olivares D O Work Phone: Start: 08-01-2024 Plain chest X-ray Thanh min Ball DO Work Phone: Start: 06-22-2024 Bacteria identified in Blood by Culture Eusebio Olivares DO Work Phone: Start: 06-22-2024 Eusebio B all DO Work Phone: Start: 03-14-2024 Thyrotropin [Units/volume] in Serum or Plasma Carmen Rowland MD Work Phone: Start: 03-09-2024 Blood culture for bacteria, including anaerobic screen DO Eusebio [employer] Work Phone: Start: 03-09-2024 SARS-CoV-2, Influenz a & RSV (PCR) DO Euseboi [employer] Work Phone: Start: 03-09-2024 Plain chest X-ray DO Be njamin [employer] Work Phone: Start: 03-01-2024 Blood culture for bacteria, including anaerobic screen DO Eusebio [employer] Work Phone: Start: 03-01-2024 Respiratory Panel (PCR) DO Eusebio [employer] Work Phone: Start: 03-01-2024 SARS-CoV-2, Influenz a & RSV (PCR) DO Eusebio [employer] Work Phone: Start: 03-01-2024 Plain chest X-ray DO Be njamin [employer] Work Phone: Start: 11-26-2023 Arteriovenous fistulization DO Eusebio Olivares Work Phone: Start: 10-31-2023 IR Fistulogram/TLA S tent (Left) DO Eusebio Olivares Work Phone: Start: 10-02-2023 Plain chest X-ray DO Carl schmidt [employer] Work Phone: Start: 09-24-2023 Comprehensive metabo lic panel Va Palmer Reanna [employer]OM[employer]ER [employer]PERATURE REGULATOR Work Phone: Start: 08-29-2023 Ultrasonography of arteriovenous fistula DO Eusebio [employer] Work Phone: Start: 08-20-2023 History of placement of stent for coronary artery disease Status post insertion of drug eluting coronary artery stent Brianna Gomez DO Work Phone: Start: 08-19-2023 History of placement of stent for coronary artery disease Chung Maria MD Start: 07-02-2023 Ultrasonography of arteriovenous fistula DO Eusebio [employer] Phone: Start: 06-17-2023 IR Fistulogram/TLA S tent (Left) DO Euseboi [employer] Phone: Start: 06-13-2023 Ultrasonography of arteriovenous fistula DO Eusebio [employer] Phone: Start: 04-12-2023 IR Fistulogram/TLA S tent (Left) DO Eusebio [employer] Phone: Start: 04-10-2023 Ultrasonography of arteriovenous fistula DO Eusebio [employer] Phone: Start: 02-27-2023 Ultrasonography of arteriovenous fistula DO Eusebio [employer] Phone: Start: 02-04-2023 CL Stent 1st Vessel RCA JUAN C DO Eusebio [employer] Work Phone: Start: 12-18-2022 Arteriovenous fistulization DO Mickey Gr Work Phone: Start: 12-11-2022 IR Fistulogram/TLA S tent (Left) DO Mickey Gr Work Phone: Start: 12-04-2022 IR Fistulogram/TLA S tent (Left) DO [employer] Work Phone: Start: 11-28-2022 Ultrasonography of arteriovenous fistula DO [employer] Phone: Start: 10-02-2022 Plain chest X-ray DO Al berenice [employer] Work Phone: Start: 09-17-2022 Arteriovenous fistulization DO [employer] Phone: Start: 09-05-2022 Ultrasound (US) dopp ler flow mapping of vein of upper limb DO [employer] Phone: Start: 08-13-2022 Plain chest X-ray DO Be njamin [employer] Work Phone: Start: 08-12-2022 CT of head without contrast DO [employer] Phone: Start: 06-13-2022 SARS-CoV-2, Influenz a & RSV (PCR) DO [employer] Phone: Start: 06-13-2022 Plain chest X-ray DO Be njamin [employer] Work Phone: Start: 06-03-2022 Plain chest X-ray DO Be njamin [employer] Work Phone: Start: 05-21-2022 Plain chest X-ray DO Be njamin [employer] Work Phone: Start: 05-21-2022 Blood culture for bacteria, including anaerobic screen DO [employer] Phone: Start: 05-21-2022 SARS Antigen (LFIA) DO [employer] Work Phone: Start: 05-18-2022 Bone marrow sampling DO [employer] Phone: Start: 05-15-2022 Dual energy X-ray absorptiometry DO [employer] Phone: Start: 04-09-2022 Plain chest X-ray DO Be njamin [employer] Phone: Blood culture for bacteria, including anaerobic screen DO [employer] Phone: Cardiac catheterization Benj matthews E [employer] Work Phone: Depression screening Romain Mendoza Other History of placement of stent for coronary artery disease Status post insertion of drug eluting coronary artery stent Eusebio Olivares Work Phone: History of placement of stent for coronary artery disease Status post insertion of drug eluting coronary artery stent Brianna Gomez DO Work Phone: History of placement of stent for coronary artery disease Status post insertion of drug eluting coronary artery stent Brianna Gomez DO Work Phone: History of placement of stent for coronary artery disease Status post insertion of drug eluting coronary artery stent Brianna Gomez DO Work Phone: History of placement of stent for coronary artery disease Status post insertion of drug eluting coronary artery stent Brianna Gomez DO Work Phone: History of placement of stent in anterior descending branch of left coronary artery History of placement of stent in LAD coronary artery DO Eusebio Marshall Work Phone: LT knee scope Mickey GUERIN Operative procedure on knee Eusebio Olivares Work Phone: Placement of stent i n cardiac conduit Mickey GUERIN Surgical procedure o n eye proper Eusebio Olivares Work Phone: Vasectomy Eusebio Olivares Work Phone: Vasectomy Mickey GUERIN NEGATED: Highlighted row has not occurred! Total colonoscopy Eusebio Arreguin Marshall Work Phone: Plan of Treatment Date Care Activity Detail Author Start: 2045 RSV patients and/or patients aged 60+ years (1 - 1-dose 60+ series) RSV patients and/or patients aged 60+ years (1 - 1-dose 60+ series) [facility] Start: 2035 Zoster Vaccines (1 of 2) Zoster Vaccines (1 of 2) [facility] Start: 04-15-2026 Echocardiography Echocardiogram [facility] Start: 11-30-2025 End: 11-30-2025 Patient encounter procedure 11/30/2025 10:20 AM EDT Office Visit [address] [id number] Brianna Gomez, DO [address] [place] [address] [facility] Start: 06-29-2025 End: 06-29-2025 Patient encounter procedure 06/29/2025 8:30 AM EST Office Visit [facility] [address] [place] [address] Tiana Anderson, AMUSEMENT MACHINE MECHANIC-SERVICE STATION EQUIPMENT MECHANIC [address] [place] [address] [facility] Start: 06-01-2025 End: 06-01-2025 [facility] Start: 05-31-2025 [facility] Start: 05-31-2025 Hospital admission [facility] Start: 05-29-2025 Plain chest X-ray XR chest 2V* [facility] Start: 05-29-2025 XR Chest 2 Views [facility] Start: 05-27-2025 End: 05-27-2025 Patient encounter procedure 05/27/2025 10:40 AM EDT Office Visit [place] [address] [place] [address] Brianna Gomez, DO [address] [place] [address] [facility] Start: 05-06-2025 Hospital admission [facility] Start: 05-06-2025 [facility] Start: 04-19-2025 COVID-19 Vaccine ( season) COVID-19 Vaccine ( season) [facility] Start: 04-19-2025 COVID-19 Vaccine ( season) COVID-19 Vaccine ( season) [facility] Start: 04-19-2025 Influenza vaccination [facility] Start: 04-13-2025 [facility] Start: 04-01-2025 Ultrasonography of arteriovenous fistula US AV Fistula [facility] Start: 04-01-2025 US AV fistula [facility] Start: 03-19-2025 Influenza vaccination Influenza Vaccine (#1) [facility] Start: 03-16-2025 Creatinine measurement Creatinine Level [facility] Start: 03-16-2025 Potassium measurement Potassium Level [facility] Start: 03-15-2025 Echocardiography Echocardiogram [facility] Start: 03-14-2025 Thyroid stimulating hormone measurement TSH Level [facility] Start: 01-21-2025 [facility] Start: 01-21-2025 Hospital admission [facility] Start: 01-21-2025 End: 01-21-2025 [facility] Start: 12-17-2024 Plain chest X-ray XR chest 2V* [facility] Start: 12-17-2024 XR Chest 2 Views [facility] Start: 11-24-2024 End: 11-24-2024 Patient encounter procedure 11/24/2024 11:20 AM EDT Office Visit [place] [id number] [place] [id number] Brianna Gomez DO [address] [place] [address] [facility] Start: 11-02-2024 End: 11-02-2024 [facility] Start: 11-01-2024 Referral to transitional nurse [facility] Start: 11-01-2024 [facility] Start: 11-01-2024 Hospital admission [facility] Start: 11-01-2024 CT Abdomen and Pelvis WO contrast [facility] Start: 11-01-2024 CT of abdomen and pelvis without contrast CT abdomen pelvis wo con [facility] Start: 11-01-2024 CT of head without contrast CT head/brain wo con [facility] Start: 11-01-2024 CT Unspecified body region WO contrast [facility] Start: 11-01-2024 Plain chest X-ray XR chest 1V portable [facility] Start: 11-01-2024 XR Chest Single view [facility] Start: 11-01-2024 [facility] Start: 11-01-2024 Bacteria identified in Blood by Culture Blood Culture [facility] Start: 09-17-2024 Consultation [facility] Start: 09-17-2024 End: 09-17-2024 [facility] Start: 09-16-2024 Introduction of Other [employer] Therapeutic Substance into Mouth and Pharynx, External Approach, [employer] 5 Introduction of Other [employer] Therapeutic Substance into Mouth and Pharynx, External Approach, [employer] 5 [facility] Start: 09-16-2024 Referral to infectious diseases physician [facility] Start: 09-16-2024 Hospital admission [facility] Start: 09-16-2024 Microbial culture of sputum [facility] Start: 09-16-2024 Referral to transitional nurse [facility] Start: 09-16-2024 [facility] Start: 09-15-2024 End: 09-15-2024 [facility] Start: 09-15-2024 Bacteria identified in Blood by Culture Blood Culture [facility] Start: 09-05-2024 Glaucoma screening Diabetes: Retinopathy Screening [facility] Start: 08-29-2024 [facility] Start: 08-28-2024 Bacteria identified in Blood by Culture Blood Culture [facility] Start: 08-28-2024 Performance of Urinary Filtration, Intermittent, Less than 6 Hours Per Day [facility] Start: 08-28-2024 Microbial culture of sputum [facility] Start: 08-28-2024 Hospital admission [facility] Start: 08-28-2024 Referral to transitional nurse [facility] Start: 08-28-2024 End: 08-28-2024 [facility] Start: 08-27-2024 Bacteria identified in Blood by Culture Blood Culture [facility] Start: 08-13-2024 End: 08-13-2024 Patient encounter procedure 08/13/2024 9:20 AM EST Office Visit [facility] [address] [place] [id number] David Berg DPM [id number] [facility] [address] [place] [address] [facility] Start: 06-22-2024 Hospital admission [facility] Start: 06-22-2024 Referral to transitional nurse [facility] Start: 06-11-2024 End: 06-11-2024 Patient encounter procedure 06/11/2024 9:50 AM EDT Office Visit [facility] [address] [facility] [address] [place] [id number] Brianna Gomez DO [address] [facility] [address] [place] [address] [facility] Start: 06-04-2024 End: 06-04-2024 Patient encounter procedure 06/04/2024 9:20 AM EDT Office Visit [facility] [address] [place] [id number] David Berg DPM [address] [facility] [address] [place] [address] Type 2 diabetes mellitus without complication, with [...] Hav (hallux abducto valgus), left Start: 04-19-2024 COVID-19 Vaccine ( season) COVID-19 Vaccine ( season) [facility] Start: 04-19-2024 Influenza vaccination [facility] Start: 03-10-2024 Plain chest X-ray XR chest 2V* [facility] Start: 03-09-2024 Bacteria identified in Blood by Culture [facility] Start: 03-09-2024 Blood culture for bacteria, including anaerobic screen Blood Culture [facility] Start: 03-09-2024 Performance of Urinary Filtration, Intermittent, Less than 6 Hours Per Day Performance of Urinary Filtration, Intermittent, Less than 6 Hours Per Day [facility] Start: 03-09-2024 Referral to transitional nurse [facility] Start: 03-09-2024 End: 03-09-2024 [facility] Start: 03-09-2024 Hospital admission [facility] Start: 03-09-2024 [facility] Start: 03-09-2024 [facility] Start: 03-02-2024 End: 03-02-2024 [facility] Start: 03-01-2024 Bacteria identified in Blood by Culture [facility] Start: 03-01-2024 Blood culture for bacteria, including anaerobic screen Blood Culture [facility] Start: 03-01-2024 Performance of Urinary Filtration, Intermittent, Less than 6 Hours Per Day Performance of Urinary Filtration, Intermittent, Less than 6 Hours Per Day [facility] Start: 03-01-2024 [facility] Start: 03-01-2024 Referral to transitional nurse [facility] Start: 03-01-2024 Hospital admission [facility] Start: 03-01-2024 [facility] Start: 03-01-2024 Plain chest X-ray XR chest 2V* [facility] Start: 03-01-2024 XR Chest 2 Views [facility] Start: 03-01-2024 [facility] Start: 11-26-2023 End: 11-26-2023 [facility] Start: 10-31-2023 [facility] Start: 10-24-2023 End: 10-24-2023 Patient encounter procedure 10/24/2023 3:10 PM EST Office Visit [facility] [address] [facility] [address] [place] [address] David Berg DPM [address] [facility] [address] [place] [address] [facility] Start: 10-15-2023 End: 10-15-2023 Patient encounter procedure 10/15/2023 1:15 PM EST Office Visit [facility] [address] [place] [phone] Angelina Martinez MD [address] [place] [address] [facility] Start: 10-03-2023 Echocardiography Echocardiogram [facility] Start: 10-01-2023 Patient referral [facility] Work Phone: Start: 09-30-2023 End: 09-30-2024 MR Shoulder - left WO contrast MR shoulder left wo IV contrast Imaging Routine Internal derangement of left shoulder Expected: 09/30/2023 (Approximate), Expires: 09/30/2024 [facility] Work Phone: Comment on above: Expected: 09/30/2023 (Approximate), Expi res: 09/30/2024 Start: 09-30-2023 End: 09-30-2023 Patient encounter procedure 09/30/2023 1:00 PM EST Office Visit [facility] [address] [place] [phone] Nelida Carrington PYROMETER TEMPERATURE REGULATOR [address] [place] [address] [facility] Start: 09-05-2023 FUV, Provider: Brianna Gomez, Status: Pen, Time: 9:50 AM FUV, Provider: Brianna Gomez, Status: Pen, Time: 9:50 AM [facility] 250 DO Work Phone: Start: 08-18-2023 [facility] Start: 08-18-2023 Referral to finance admin [facility] Start: 08-18-2023 Referral to transitional nurse [facility] Start: 08-18-2023 Hospital admission [facility] Start: 08-18-2023 [facility] Start: 07-02-2023 Ultrasonography of arteriovenous fistula US AV Fistula [facility] Start: 07-02-2023 US AV fistula [facility] Start: 06-17-2023 [facility] Start: 06-13-2023 Ultrasonography of arteriovenous fistula US AV Fistula [facility] Start: 06-13-2023 US AV fistula [facility] Start: 04-19-2023 COVID-19 Vaccine ( season) COVID-19 Vaccine () [facility] Start: 04-12-2023 [facility] Start: 02-26-2023 FUV, Provider: Brianna Gomez, Status: Pen, Time: 9:30 AM FUV, Provider: Brianna Gomez, Status: Pen, Time: 9:30 AM [facility] 250 DO Work Phone: Start: 02-04-2023 End: 02-04-2023 [facility] Start: 02-04-2023 SURGNONUH, Provider: Brianna Gomez, Status: Pen, Time: 11:00 AM SURGNONUH, Provider: Brianna Gomez, Status: Pen, Time: 11:00 AM -[facility] 250 DO Work Phone: Start: 01-09-2023 [facility] Start: 01-09-2023 Hospital admission [facility] Start: 01-09-2023 Referral to finance admin [facility] Start: 12-18-2022 [facility] Start: 12-18-2022 [facility] Start: 12-17-2022 FUV, Provider: Janine Gonzalez, Status: Pen, Time: 9:45 AM FUV, Provider: Janine Gonzalez, Status: Pen, Time: 9:45 AM -[facility] 250 DO Work Phone: Start: 12-11-2022 [facility] Start: 12-04-2022 [facility] Start: 11-28-2022 Ultrasonography of arteriovenous fistula US AV Fistula [facility] Start: 11-28-2022 US AV fistula [facility] Start: 11-14-2022 SURGGALLO, Provider: Brianna Gomez, Status: Pen, Time: 2:00 PM SURGGALLO, Provider: Brianna Gomez, Status: Pen, Time: 2:00 PM [facility] 250 DO Work Phone: Start: 11-14-2022 CL *Percutaneous Coronary Interven(PCI) (Not Applicable) CL *Percutaneous Coronary Interven(PCI) (Not Applicable) [facility] Start: 10-07-2022 Blood chemistry [facility] Start: 10-07-2022 [facility] Start: 10-06-2022 Blood chemistry [facility] Start: 10-06-2022 [facility] Start: 10-05-2022 Blood chemistry [facility] Start: 10-05-2022 [facility] Start: 10-04-2022 Blood chemistry [facility] Start: 10-04-2022 [facility] Start: 10-04-2022 Creatine kinase [Enzymatic activity/volume] in Serum or Plasma [facility] Start: 10-04-2022 Troponin I.cardiac [Mass/volume] in Serum or Plasma by High sensitivity method [facility] Start: 10-03-2022 Blood chemistry [facility] Start: 10-03-2022 End: 10-03-2022 [facility] Start: 10-03-2022 Hospital admission [facility] Start: 10-03-2022 Referral to finance admin [facility] Start: 10-03-2022 Referral to transitional nurse [facility] Start: 10-03-2022 [facility] Start: 10-02-2022 Plain chest X-ray XR chest 1V portable [facility] Start: 10-02-2022 XR Chest Single view [facility] Start: 09-17-2022 [facility] Start: 09-17-2022 [facility] Start: 09-05-2022 Ultrasound (US) doppler flow mapping of vein of upper limb US venous mapping BI [facility] Start: 09-05-2022 US Upper extremity vein - bilateral [facility] Start: 09-01-2022 [facility] Start: 08-19-2022 DEPRESSION ASSESSMENT DEPRESSION ASSESSMENT [facility] Start: 08-18-2022 Blood chemistry [facility] Start: 08-17-2022 Blood chemistry [facility] Start: 08-17-2022 [facility] Start: 08-16-2022 Blood chemistry [facility] Start: 08-16-2022 [facility] Start: 08-15-2022 Blood chemistry [facility] Start: 08-15-2022 [facility] Start: 08-14-2022 Blood chemistry [facility] Start: 08-14-2022 [facility] Start: 08-13-2022 [facility] Start: 08-13-2022 Hospital admission [facility] Start: 08-13-2022 Referral to transitional nurse [facility] Start: 08-13-2022 [facility] Start: 08-12-2022 CT of head without contrast CT head/brain wo con [facility] Start: 08-12-2022 CT Unspecified body region WO contrast [facility] Start: 05-18-2022 End: 05-18-2022 [facility] Start: 05-18-2022 Bone marrow sampling [facility] Start: 04-20-2022 [facility] Work Phone: Start: 04-20-2022 Patient encounter procedure Registered Clinical [facility] [place] Start: 04-19-2022 Influenza vaccination INFLUENZA (#1) [facility] Start: 04-09-2022 Plain chest X-ray XR chest 1V portable [facility] Start: 04-09-2022 End: 04-10-2022 Emergency department patient visit Departed Emergency [facility]-Emergency Room Start: 02-22-2022 FUV, Provider: Brianna Gomez, Status: Pen, Time: 11:10 AM -[facility] DO Work Phone: Start: 08-19-2021 DEPRESSION ASSESSMENT DEPRESSION ASSESSMENT [facility] Start: 2020 LIPID SCREEN LIPID SCREEN [facility] Start: 2012 HPV Vaccines (1 - 3-dose standard series) HPV Vaccines (1 - 3-dose standard series) [facility] Start: 2007 DTaP/Tdap/Td Vaccines (1 - Tdap) DTaP/Tdap/Td Vaccines (1 - Tdap) [facility] Start: 2004 Hepatitis A Vaccines (1 of 2 - Risk 2-dose series) Hepatitis A Vaccines (1 of 2 - Risk 2-dose series) [facility] Start: 2004 Hepatitis B Vaccines (1 of 3 - 19+ 3-dose series) Hepatitis B Vaccines (1 of 3 - 19+ 3-dose series) [facility] Start: 2004 Pneumococcal Vaccine: Pediatrics and At-Risk Adult Patients (1 of 2 - PCV) Pneumococcal Vaccine: Pediatrics and At-Risk Adult Patients (1 of 2 - PCV) [facility] Start: 2004 Urine microalbumin profile DTAP,TDAP,TD (1 - Tdap) [facility] Start: 2004 Urine screening for protein Diabetes: Urine Protein Screening [facility] Start: 2004 Zoster Vaccines (1 of 2) Zoster Vaccines (1 of 2) [facility] Start: 2003 HEPATITIS C SCREENING HEPATITIS C SCREENING [facility] Start: 2003 Hepatitis C screening Hepatitis C Screening [facility] Start: 2003 HIV SCREENING HIV SCREENING [facility] Start: 1998 Varicella vaccination Varicella Vaccines (1 of 2 - 13+ 2-dose series) [facility] Start: 1995 Diabetic foot examination Diabetes: Foot Exam [facility] Start: 1991 PNEUMOCOCCAL (1 - PCV) PNEUMOCOCCAL (1 - PCV) [facility] Start: 1991 Pneumococcal Vaccine: Pediatrics (0 to 5 Years) and At-Risk Patients (6 to 64 Years) (1 of 2 - PCV) Pneumococcal Vaccine: Pediatrics (0 to 5 Years) and At-Risk Patients (6 to 64 Years) (1 of 2 - PCV) [facility] Start: 1990 COVID-19 Vaccine (#1) COVID-19 Vaccine (#1) [facility] Start: 1986 MMR Vaccines (1 of 1 - Standard series) MMR Vaccines (1 of 1 - Standard series) [facility] Start: 1985 COVID-19 VACCINE (#1) COVID-19 VACCINE (#1) [facility] Start: 1985 Creatinine measurement Creatinine Level [facility] Start: 1985 Cyanocobalamin vitamin b-12 Vitamin B-12 [facility] Start: 1985 Diabetes: Celiac Disease Screening Diabetes: Celiac Disease Screening [facility] Start: 1985 Hemoglobin A1c measurement Diabetes: Hemoglobin A1C [facility] Start: 1985 HEPATITIS B (1 of 3 - 3-dose series) HEPATITIS B (1 of 3 - 3-dose series) [facility] Start: 1985 HIV screening HIV Screening [facility] Start: 1985 Lipid panel Lipid Panel [facility] Start: 1985 Medicare Annual Wellness Visit Medicare Annual Wellness Visit (AWV) [facility] Start: 1985 Potassium measurement Potassium Level [facility] Anion gap measurement [facility] Basophils [#/volume] in Blood by Automated count [facility] Basophils/100 leukoc ytes in Blood by Automated count [facility] Blood chemistry [facility] Bone marrow sampling [facility] Work Phone: Calcium [Mass/volume ] in Serum or Plasma [facility] Carbon dioxide, tota l [Moles/volume] in Serum or Plasma [facility] Chloride [Moles/volu me] in Serum or Plasma [facility] Comprehensive metabo lic 1999 panel - Serum or Plasma [facility] Comprehensive metabo lic 1999 panel - Serum or Plasma [facility] Comprehensive metabo lic 1999 panel - Serum or Plasma [facility] Creatine kinase [Enzymatic activity/volume] in Serum or Plasma [facility] Creatine kinase [Enzymatic activity/volume] in Serum or Plasma [facility] Creatine kinase MB isoenzyme/total creatine kinase ratio measurement [facility] Creatine kinase MB isoenzyme/total creatine kinase ratio measurement [facility] Creatine kinase.MB [Mass/volume] in Serum or Plasma [facility] Creatine kinase.MB [Mass/volume] in Serum or Plasma [facility] Creatinine and Glome rular filtration rate.predicted panel - Serum, Plasma or Blood [facility] CT Abdomen and Pelvi s WO contrast [facility] DXA Skeletal system. axial Views for bone density [facility] Work Phone: Eosinophils [#/volum e] in Blood [facility] Eosinophils/100 leukocytes in Blood by Automated count [facility] Erythrocyte distribu tion width [Ratio] by Automated count [facility] Erythrocytes [#/volu me] in Blood [facility] Glucose [Mass/volume ] in Serum or Plasma [facility] Glucose [Mass/volume ] in Serum or Plasma [facility] Glucose [Mass/volume ] in Serum or Plasma [facility] Glucose [Mass/volume ] in Serum or Plasma [facility] Glucose [Mass/volume ] in Serum or Plasma [facility] Glucose measurement estimated from glycated hemoglobin [facility] Hematocrit [Volume Fraction] of Blood [facility] Hemoglobin [Mass/vol ume] in Blood [facility] Hepatitis A virus antibody, IgM type [facility] Hepatitis B core ant ibody measurement, IgM type [facility] Hepatitis B virus ramon rface Ag [Presence] in Serum or Plasma by Immunoassay [facility] Hepatitis C virus Ig G Ab [Presence] in Serum or Plasma by Immunoassay [facility] Hepatitis C virus RN A [log units/volume] (viral load) in Serum or Plasma by HAO with probe detection [facility] Hepatitis C virus RN A [Units/volume] (viral load) in Serum or Plasma by HAO with probe detection [facility] Leukocytes [#/volume ] corrected for nucleated erythrocytes in Blood by Automated coun [facility] Leukocytes [#/volume ] in Blood [facility] Lymphocytes [#/volum e] in Blood by Automated count [facility] Lymphocytes/100 leukocytes in Blood by Automated count [facility] MCH [Entitic mass] b y Automated count [facility] MCHC [Mass/volume] b y Automated count [facility] MCV [Entitic volume] by Automated count [facility] Measurement of renal function [facility] Monocytes [#/volume] in Blood by Automated count [facility] Monocytes/100 leukoc ytes in Blood by Automated count [facility] Neutrophils [#/volum e] in Blood by Automated count [facility] Neutrophils/100 leukocytes in Blood by Automated count [facility] Nucleated erythrocyt es [Presence] in Blood by Automated count [facility] Patient Education [facility] Work Phone: Patient referral [facility] Work Phone: Platelet mean volume [Entitic volume] in Blood by Automated count [facility] Platelets [#/volume] in Blood [facility] Potassium [Moles/vol ume] in Serum or Plasma [facility] Sodium [Moles/volume ] in Serum or Plasma [facility] Troponin I.cardiac [Mass/volume] in Serum or Plasma by High sensitivity method [facility] Troponin I.cardiac [Mass/volume] in Serum or Plasma by High sensitivity method [facility] Urea nitrogen [Mass/volume] in Serum or Plasma [facility] URINALYSIS, REFLEX MICROSCOPIC URINALYSIS, REFLEX MICROSCOPIC Lab Routine Screening for genitourinary condition Ordered: 09/05/2022 [facility] Work Phone: Comment on above: Ordered: 09/05/2022 [facility] Immunizations Immunization Date Immunization Notes Care Provider Janeen daniel 10-05-1997 measles, mumps and rubella virus vaccine David JIMENEZM Work Phone: [facility] Payers Date Payer Category Payer Medicare [id number] 2024 Self-pay [id number] 2024 Dual Eligibility Medicare/Medicaid Organization [employer] [id number] 2024 Medicare (Managed Care) [employer] [id number] 2024 Medicare [id number] 2023 Medicare [id number] .[id number] 2023 Medicare [id number] 2.16.840.1.786490.19 2021 Medicaid [id number]. 1.13.159.2 .7.3.893365.315 2021 Unknown 1985 Unknown [id number] 2.16.840.1.975580.3.579.2 .593 1985 Unknown [id number] 2.16.840.1.519811.3.579.2 .593 1985 Unknown [id number] 2.16.840.1.924933.3.579.2 .593 1985 Unknown [id number] 2.840.1.374390.3.579.2 .356 1985 Unknown [id number] 2.840.1.327308.3.579.2 .356 1985 Unknown [id number] 2.840.1.121873.3.579.2 .1985 Unknown [id number] 2.840.1.269832.3.579.2 .1985 Unknown [id number] 2.840.1.349514.3.579.2 .1985 Unknown [id number] 2.840.1.202969.3.579.2 .1985 Unknown [id number] 840.1.845922.3.579.2 .1985 Unknown [id number] 2.840.1.619230.3.579.2 .356 1985 Unknown [id number] 840.1.831507.3.579.2 .356 1985 Unknown [id number] 2840.1.382346.3.579.2 .727 1985 Unknown [id number] 840.1.104115.3.579.2 .1258 1985 Unknown [id number] .840.1.689076.3.579.2 .125 1985 Unknown [id number] 840.1.739129.3.579.2 .1258 1985 Unknown [id number] 2.840.1.427603.3.579.2 .1258 1985 Unknown [id number] 2.840.1.746133.3.579.2 .1246 1985 Unknown [id number] 840.1.526947.3.579.2 .1244 1985 Unknown [id number] 2.840.1.768623.3.579.2 .124 1985 Unknown [id number] 2.840.1.386370.3.579.2 .124 1985 Unknown [id number] 2.0.1.228111.3.579.2 .1244 1985 Unknown [id number] .840.1.379545.3.579.2 .1244 1985 Unknown [id number] .0.1.757177.3.579.2 .1244 1959 Blue Cross Blue Shield [id number] .[id number] 1959 Medicaid [id number] 1959 Self-pay [id number] Medicare Medicare [id number] Unknown [id number] 10.04.830.1.301771.3.579.2 .531 Unknown [id number] 10.04.830.1.807906.3.579.2 .531 Unknown [id number] .1.996482.3.579.2 .531 Unknown [id number] 840.1.427803.3.579.2 .531 Unknown [id number] 10.04.830.1.499770.3.579.2 .531 Unknown [id number] 840.1.052900.3.579.2 .531 Unknown [id number] 840.1.696323.3.579.2 .531 Unknown [id number] 840.1.661820.3.579.2 .531 Unknown [id number] 2.16.840.1.932023.3.579.2 .531 Unknown [id number] 2.16.840.1.394379.3.579.2 .531 Unknown [id number] 2.16.840.1.943745.3.579.2 .531 Unknown [id number] 2.16.840.1.808203.3.579.2 .531 Unknown [id number] 2.16.840.1.908555.3.579.2 .531 Unknown [id number] 2.16.840.1.661394.3.579.2 .531 Unknown [id number] 2.16.840.1.811075.3.579.2 .531 Social History Date Type Detail Facility Start: 08-15-2023 End: 06-02-2025 Current every day smoker Current every day smoker [facility] [employer] Other Comment on above: 3 cigs daily; 1-2 Packs of cigaret josé daily; medical; 1 Pack of cigarettes daily; Start: 09-09-2023 End: 06-02-2025 Sex Assigned At [facility] Start: 11-13-2021 End: 03-09-2024 Tobacco smoking status NHIS Smoker (finding) [facility] Start: 1985 Sex Assigned At [facility] Start: 10-02-2021 End: 03-26-2024 Tobacco smoking status NHIS Smokes tobacco daily [facility] Start: 10-02-2021 End: 03-26-2024 Tobacco use and exposure Smokeless tobacco non-user [facility] Start: 10-02-2021 Alcohol intake Ex-drinker (finding) [facility] Start: 1985 Sex Assigned At Not on file [facility] Start: 08-13-2022 End: 09-17-2022 Tobacco smoking status NHIS Current Heavy tobacco smoker [facility] Start: 07-14-2022 End: 08-29-2022 Tobacco smoking status Never [facility] History of tobacco use Cigarette Smoker [facility] Start: 09-24-2023 End: 12-10-2024 Alcohol intake Defer [facility] Start: 12-03-2023 End: 06-02-2025 Alcoholic beverage intake Lifetime non-drinker (finding) [facility] Work Phone: Start: 11-23-2023 End: 11-24-2024 Exposure to SARS-CoV-2 (event) Not sure [facility] Start: 03-01-2024 End: 05-30-2025 Tobacco smoking status NHIS Never smoked tobacco (finding) [facility] Start: 08-28-2024 End: 11-24-2024 Tobacco smoking status NHIS Ex-smoker (finding) [facility] Start: 07-14-2022 End: 08-28-2024 Sex Male (finding) [facility] Start: 11-24-2024 Tobacco use and exposure User of smokeless tobacco [facility] Work Phone: Start: 11-24-2024 Tobacco Comment [facility] Work Phone: Medical Equipment Procedure Code Equipment Code Equipment Origin al Text Equipment Identifier Dates Fistulogram [id number] FDA Start: 06-17-2023 Fistulogram ()[id number] FDA Start: 06-17-2023 Fistulogram ()[id number] FDA Start: 06-17-2023 Fistulogram ()[id number] FDA Start: 06-17-2023 Fistulogram ()[id number] FDA Start: 06-17-2023 Creation or revision of arteriovenous fistula ()[id number] FDA Start: 11-26-2023 ()[id number] FDA Start: 11-16-2021 CL STENT VALENTIN FRONTIER 3.0 X 38 FDA Start: 02-04-2023 CL STENT VALENTIN FRONTIER 3.5 X 12 FDA Start: 02-04-2023 CL STENT VALENTIN FRONTIER 3.0 X 38 FDA Start: 02-04-2023 CL STENT VALENTIN FRONTIER 3.5 X 12 FDA Start: 02-04-2023 CL STENT VALENTIN FRONTIER 3.0 X 38 FDA Start: 02-04-2023 CL STENT VALENTIN FRONTIER 3.5 X 12 FDA Start: 02-04-2023 CL STENT VALENTIN FRONTIER 3.0 X 38 FDA Start: 02-04-2023 CL STENT VALENTIN FRONTIER 3.5 X 12 FDA Start: 02-04-2023 CL STENT VALENTIN FRONTIER 3.0 X 38 FDA Start: 02-04-2023 CL STENT VALENTIN FRONTIER 3.5 X 12 FDA Start: 02-04-2023 CL STENT VALENTIN FRONTIER 3.0 X 38 FDA Start: 02-04-2023 CL STENT VALENTIN FRONTIER 3.5 X 12 FDA Start: 02-04-2023 CL STENT VALENTIN FRONTIER 3.0 X 38 FDA Start: 02-04-2023 CL STENT VALENTIN FRONTIER 3.5 X 12 FDA Start: 02-04-2023 [id number] Start: 08-26-2023 CL STENT VALENTIN FRONTIER 3.0 X 38 FDA Start: 02-04-2023 CL STENT VALENTIN FRONTIER 3.5 X 12 FDA Start: 02-04-2023 CL STENT VALENTIN FRONTIER 3.0 X 38 FDA Start: 02-04-2023 CL STENT VALENTIN FRONTIER 3.5 X 12 FDA Start: 02-04-2023 CL STENT VALENTIN FRONTIER 3.0 X 38 FDA Start: 02-04-2023 CL STENT VALENTIN FRONTIER 3.5 X 12 FDA Start: 02-04-2023 CL STENT VALENTIN FRONTIER 3.0 X 38 FDA Start: 02-04-2023 CL STENT VALENTIN FRONTIER 3.5 X 12 FDA Start: 02-04-2023 CL STENT VALENTIN FRONTIER 3.0 X 38 FDA Start: 02-04-2023 CL STENT VALENTIN FRONTIER 3.5 X 12 FDA Start: 02-04-2023 CL STENT VALENTIN FRONTIER 3.0 X 38 FDA Start: 02-04-2023 CL STENT VALENTIN FRONTIER 3.5 X 12 FDA Start: 02-04-2023 CL STENT VALENTIN FRONTIER 3.0 X 38 FDA Start: 02-04-2023 CL STENT VALENTIN FRONTIER 3.5 X 12 FDA Start: 02-04-2023 CL STENT VALENTIN FRONTIER 3.0 X 38 FDA Start: 02-04-2023 CL STENT VALENTIN FRONTIER 3.5 X 12 FDA Start: 02-04-2023 CL STENT VALENTIN FRONTIER 3.0 X 38 FDA Start: 02-04-2023 CL STENT VALENTIN FRONTIER 3.5 X 12 FDA Start: 02-04-2023 CL STENT VALENTIN FRONTIER 3.0 X 38 FDA Start: 02-04-2023 CL STENT VALENTIN FRONTIER 3.5 X 12 FDA Start: 02-04-2023 CL STENT VALENTIN FRONTIER 3.0 X 38 FDA Start: 02-04-2023 CL STENT VALENTIN FRONTIER 3.5 X 12 FDA Start: 02-04-2023 CL STENT VALENTIN FRONTIER 3.0 X 38 FDA Start: 02-04-2023 CL STENT VALENTIN FRONTIER 3.5 X 12 FDA Start: 02-04-2023 CL STENT VALENTIN FRONTIER 3.0 X 38 FDA Start: 02-04-2023 CL STENT VALENTIN FRONTIER 3.5 X 12 FDA Start: 02-04-2023 CL STENT VALENTIN FRONTIER 3.0 X 38 FDA Start: 02-04-2023 CL STENT VALENTIN FRONTIER 3.5 X 12 FDA Start: 02-04-2023 CL STENT VALENTIN FRONTIER 3.0 X 38 FDA Start: 02-04-2023 CL STENT VALENTIN FRONTIER 3.5 X 12 FDA Start: 02-04-2023 CL STENT VALENTIN FRONTIER 3.0 X 38 FDA Start: 02-04-2023 CL STENT VALENTIN FRONTIER 3.5 X 12 FDA Start: 02-04-2023 CL STENT VALENTIN FRONTIER 3.0 X 38 FDA Start: 02-04-2023 CL STENT VALENTIN FRONTIER 3.5 X 12 FDA Start: 02-04-2023 FDA Start: 02-04-2023 FDA Start: 02-04-2023 CL STENT VALENTIN FRONTIER 3.0 X 38 FDA Start: 02-04-2023 CL STENT VALENTIN FRONTIER 3.5 X 12 FDA Start: 02-04-2023 Blood Sugar Diagnostic (Accu-Chek Guide Test Strips) strip Start: 10-14-2024 CL STENT VALENTIN FRONTIER 3.0 X 38 FDA Start: 02-04-2023 CL STENT VALENTIN FRONTIER 3.5 X 12 FDA Start: 02-04-2023 Blood Sugar Diagnostic (Accu-Chek Guide Test Strips) strip Start: 10-14-2024 CL STENT VALENTIN FRONTIER 3.0 X 38 FDA Start: 02-04-2023 CL STENT VALENTIN FRONTIER 3.5 X 12 FDA Start: 02-04-2023 Blood Sugar Diagnostic (Accu-Chek Guide Test Strips) strip Start: 10-14-2024 CL STENT VALENTIN FRONTIER 3.0 X 38 FDA Start: 02-04-2023 CL STENT VALENTIN FRONTIER 3.5 X 12 FDA Start: 02-04-2023 Blood Sugar Diagnostic (Accu-Chek Guide Test Strips) strip Start: 10-14-2024 CL STENT VALENTIN FRONTIER 3.0 X 38 FDA Start: 02-04-2023 CL STENT VALENTIN FRONTIER 3.5 X 12 FDA Start: 02-04-2023 Blood Sugar Diagnostic (Accu-Chek Guide Test Strips) strip Start: 10-14-2024 CL STENT VALENTIN FRONTIER 3.0 X 38 FDA Start: 02-04-2023 CL STENT VALENTIN FRONTIER 3.5 X 12 FDA Start: 02-04-2023 Blood Sugar Diagnostic (Accu-Chek Guide Test Strips) strip Start: 10-14-2024 CL STENT VALENTIN FRONTIER 3.0 X 38 FDA Start: 02-04-2023 CL STENT VALENTIN FRONTIER 3.5 X 12 FDA Start: 02-04-2023 Blood Sugar Diagnostic (Accu-Chek Guide Test Strips) strip Start: 10-14-2024 CL STENT VALENTIN FRONTIER 3.0 X 38 FDA Start: 02-04-2023 CL STENT VALENTIN FRONTIER 3.5 X 12 FDA Start: 02-04-2023 Blood Sugar Diagnostic (Accu-Chek Guide Test Strips) strip Start: 10-14-2024 CL STENT VALENTIN FRONTIER 3.0 X 38 FDA Start: 02-04-2023 CL STENT VALENTIN FRONTIER 3.5 X 12 FDA Start: 02-04-2023 CL STENT VALENTIN FRONTIER 3.5 X 18 FDA Start: 01-21-2025 [id number] FDA Start: 01-21-2025 Blood Sugar Diagnostic (Accu-Chek Guide Test Strips) strip Start: 03-18-2025 Blood Sugar Diagnostic (Accu-Chek Guide Test Strips) strip Start: 10-14-2024 End: 03-18-2025 CL STENT VALENTIN FRONTIER 3.0 X 38 FDA Start: 02-04-2023 CL STENT VALENTIN FRONTIER 3.5 X 12 FDA Start: 02-04-2023 CL STENT VALENTIN FRONTIER 3.5 X 18 FDA Start: 01-21-2025 Blood Sugar Diagnostic (Accu-Chek Guide Test Strips) strip Start: 03-18-2025 Blood Sugar Diagnostic (Accu-Chek Guide Test Strips) strip Start: 10-14-2024 End: 03-18-2025 CL STENT VALENTIN FRONTIER 3.0 X 38 FDA Start: 02-04-2023 CL STENT VALENTIN FRONTIER 3.5 X 12 FDA Start: 02-04-2023 CL STENT VALENTIN FRONTIER 3.5 X 18 FDA Start: 01-21-2025 Blood Sugar Diagnostic (Accu-Chek Guide Test Strips) strip Start: 03-18-2025 Blood Sugar Diagnostic (Accu-Chek Guide Test Strips) strip Start: 10-14-2024 End: 03-18-2025 CL STENT VALENTIN FRONTIER 3.0 X 38 FDA Start: 02-04-2023 CL STENT VALENTIN FRONTIER 3.5 X 12 FDA Start: 02-04-2023 CL STENT VALENTIN FRONTIER 3.5 X 18 FDA Start: 01-21-2025 Blood Sugar Diagnostic (Accu-Chek Guide Test Strips) strip Start: 03-18-2025 Blood Sugar Diagnostic (Accu-Chek Guide Test Strips) strip Start: 10-14-2024 End: 03-18-2025 CL STENT VALENTIN FRONTIER 3.0 X 38 FDA Start: 02-04-2023 CL STENT VALENTIN FRONTIER 3.5 X 12 FDA Start: 02-04-2023 CL STENT VALENTIN FRONTIER 3.5 X 18 FDA Start: 01-21-2025 Blood Sugar Diagnostic (Accu-Chek Guide Test Strips) strip Start: 03-18-2025 Blood Sugar Diagnostic (Accu-Chek Guide Test Strips) strip Start: 10-14-2024 End: 03-18-2025 CL STENT VALENTIN FRONTIER 3.0 X 38 FDA Start: 02-04-2023 CL STENT VALENTIN FRONTIER 3.5 X 12 FDA Start: 02-04-2023 CL STENT VALENTIN FRONTIER 3.5 X 18 FDA Start: 01-21-2025 Blood Sugar Diagnostic (Accu-Chek Guide Test Strips) strip Start: 03-18-2025 Blood Sugar Diagnostic (Accu-Chek Guide Test Strips) strip Start: 10-14-2024 End: 03-18-2025 CL STENT VALENTIN FRONTIER 3.0 X 38 FDA Start: 02-04-2023 CL STENT VALENTIN FRONTIER 3.5 X 12 FDA Start: 02-04-2023 CL STENT VALENTIN FRONTIER 3.5 X 18 FDA Start: 01-21-2025 Blood Sugar Diagnostic (Accu-Chek Guide Test Strips) strip Start: 03-18-2025 Blood Sugar Diagnostic (Accu-Chek Guide Test Strips) strip Start: 10-14-2024 End: 03-18-2025 CL STENT VALENTIN FRONTIER 3.0 X 38 FDA Start: 02-04-2023 CL STENT VALENTIN FRONTIER 3.5 X 12 FDA Start: 02-04-2023 CL STENT VALENTIN FRONTIER 3.5 X 18 FDA Start: 01-21-2025 Blood Sugar Diagnostic (Accu-Chek Guide Test Strips) strip Start: 03-18-2025 Blood Sugar Diagnostic (Accu-Chek Guide Test Strips) strip Start: 10-14-2024 End: 03-18-2025 CL STENT VALENTIN FRONTIER 3.0 X 38 FDA Start: 02-04-2023 CL STENT VALENTIN FRONTIER 3.5 X 12 FDA Start: 02-04-2023 CL STENT VALENTIN FRONTIER 3.5 X 18 FDA Start: 01-21-2025 Blood Sugar Diagnostic (Accu-Chek Guide Test Strips) strip Start: 03-18-2025 Blood Sugar Diagnostic (Accu-Chek Guide Test Strips) strip Start: 10-14-2024 End: 03-18-2025 FDA Start: 02-04-2023 FDA Start: 02-04-2023 FDA Start: 01-21-2025 Goals Date Patient Goal Desired Activity /State Functional Status Date Assessment Result Facility 06-02-2025 [place] [facility] s everity rating scale screener - recent [C-SSRS] [facility] Work Phone: 06-02-2025 Patient Health Questionnaire 2 item (PHQ-2) [Reported] [facility] Work Phone: 06-02-2025 Functional status 194/89 [facility] Work Phone: 06-02-2025 Vital signs 67 06/02/2025 9: 11 AM EDT Madhuri Danielle MA [facility] Work Phone: 06-02-2025 [facility] Work Phone: 06-01-2025 Functional status Patient at Baseline [facility] Work Phone: 05-27-2025 Functional status 174/80 025 11:36 AM EDT Alana Pace LPN 174/80 [facility] Work Phone: 05-27-2025 Vital signs 72 05/27/2025 11 :06 AM EDT Mamta Kaplan LPN [facility] Work Phone: 05-27-2025 Functional status [facility] 05-27-2025 [facility] Work Phone: 01-21-2025 Functional status Patient at Baseline [facility] Work Phone: 11-02-2024 Functional status Patient at Baseline [facility] Work Phone: 11-02-2024 Functional status Disability Sta tus Patient at Baseline [facility] Work Phone: 09-17-2024 Functional status Patient at Baseline [facility] Work Phone: 09-16-2024 Functional status Patient at Baseline [facility] Work Phone: 08-28-2024 Functional status Patient at Baseline [facility] Work Phone: 06-22-2024 Functional status Patient at Baseline [facility] Work Phone: 03-09-2024 Functional status Patient Not at Baseline [facility] Work Phone: 03-02-2024 Functional status Patient at Baseline [facility] Work Phone: 08-18-2023 Functional status Patient at Baseline [facility] Work Phone: 02-05-2023 Functional status Patient at Baseline [facility] Work Phone: 01-09-2023 Functional status Patient at Baseline [facility] Work Phone: 10-03-2022 Functional status Patient at Baseline [facility] Work Phone: 08-29-2022 Functional Status N/A [facility] 08-13-2022 Functional status Patient at Baseline [facility] Work Phone: Mental Status Date Assessment Result Facility 06-01-2025 Cognitive function Patient at Baseline [facility] Work Phone: 01-21-2025 Cognitive function Cognitive Sta tus Patient at Baseline [facility] Work Phone: 11-02-2024 Cognitive function Cognitive Sta tus Patient at Baseline [facility] Work Phone: 09-17-2024 Cognitive function Patient at Baseline [facility] Work Phone: 09-16-2024 Cognitive function Cognitive Sta tus Patient at Baseline [facility] Work Phone: 08-28-2024 Cognitive function Patient at Baseline [facility] Work Phone: 06-22-2024 Cognitive function Patient at Baseline [facility] Work Phone: 03-09-2024 Cognitive function Cognitive Sta tus Patient Not at Baseline [facility] Work Phone: 03-02-2024 Cognitive function Cognitive Sta tus Patient at Baseline [facility] Work Phone: 08-18-2023 Cognitive function Cognitive Sta tus Patient at Baseline [facility] Work Phone: 02-05-2023 Cognitive function Cognitive Sta tus Patient at Baseline [facility] Work Phone: 01-09-2023 Cognitive function Cognitive Sta tus Patient at Baseline [facility] Work Phone: 10-03-2022 Cognitive function Cognitive Sta tus Patient at Baseline [facility] Work Phone: 08-13-2022 Cognitive function Cognitive Sta tus Patient at Baseline [facility] Work Phone: Clinical Notes 10-02-2021 to 06-02-2025 Darvin Cash MD - 06/02/2025 11:00 AM EDT Note Date & Type Note Facility 06-02-2025 History of Present illness Narrative Images from the original note were not included. PCP: Marshall Berg: Jason PMH: Specialty Problems Cardiology Problems ASHD (arteriosclerotic heart disease) CHF (congestive heart failure) (Multi) Essential (primary) hypertension Hyperlipidemia Mitral regurgitation HPI 40-year-old male here for evaluation of mitral regurgitation. 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 Remains at hemodialysis due to end-stage renal disease secondary to type 1 diabetes mellitus. He has historically been followed by [facility], undergoing evaluation for renal transplantation; he was found to have significant mitral regurgitation, recommended to have elective heart catheterization prior to possible surgical MVR/repair. He states he does not want any open surgical repair at this time. Heart catheterization ensued, he was found to have proximal LAD disease details of which were reviewed, PCI of the LAD that was successful; follow-up echo now reveals normalized LV function with ejection fraction of 55 to 60% and 4+ mitral regurgitation. He is persistently hypertensive even after dialysis, systolic blood pressures ranging anywhere between 150 to 200 mmHg. Hydralazine has been escalated to 100 3 times daily and he was recently started on Entresto. He has been referred for mitral evaluation. Full 14 point ROS complete and negative except as noted above. Structural Workup: - NYHA: 2 - Echo: I personally reviewed the ECHO with the following parameters EF Date/Time Value Ref Range Status 04/15/2025 08:29 AM 58 % The mitral valve is normal in structure. There is moderate to severe mitral valve regurgitation. The mitral regurgitant orifice area is 266 mm2. The mitral regurgitant volume is 593.29 ml. - EKG: I personally review the EKG No results found for this or any previous visit (from the past 4464 hours). - LHC: recent LAD PCI - CT TAVR: not yet done - Dental clearance: saw dentist in October but patient needs numerous teeth removed and this will need to happen before a valvular procedure - EFT 08/23 - STS: Social History Tobacco Use Smoking status: Former Current packs/day: 0.25 Types: Cigarettes Smokeless tobacco: Current Tobacco comments: Vape Substance Use Topics Alcohol use: Never [Family History] [Family History] Problem Relation Name Age of Onset Diabetes Mother Hypotension Mother Kidney disease Mother Liver disease Mother Other (heart problem) Mother Pancreatic cancer Mother Hypertension Father [RX Allergies] [RX Allergies] Allergies Allergen Reactions Brilinta [Ticagrelor] Shortness of breath Current Outpatient Medications Medication Instructions amLODIPine (NORVASC) 10 mg, Daily aspirin 81 mg, oral, Daily atorvastatin (LIPITOR) 80 mg, oral, Nightly calcium acetate (PHOSLO) 1,334 mg, 3 times daily carvedilol (COREG) 25 mg, 2 times daily clopidogrel (PLAVIX) 75 mg, oral, Daily epoetin alexus (EPOGEN INJ) 8,000 Units, 3 times weekly escitalopram (LEXAPRO) 10 mg, Daily famotidine (PEPCID) 20 mg, Nightly furosemide (LASIX) 40 mg, oral, Daily gabapentin (NEURONTIN) 100 mg, Nightly heparin, porcine (PF) 1,000 Units, 3 times weekly HumaLOG KwikPen Insulin 100 unit/mL injection Inject under the skin. hydrALAZINE (APRESOLINE) 100 mg, oral, 3 times daily hydrOXYzine HCL (ATARAX) 25 mg, Nightly isosorbide mononitrate ER (IMDUR) 60 mg, 2 times daily loratadine (CLARITIN) 10 mg, As needed nitroglycerin (NITROSTAT) 0.4 mg, Every 5 min PRN omeprazole (PriLOSEC) [address] capsule 1 capsule, Daily sacubitriL-valsartan (Entresto) 24-26 mg tablet 1 tablet sertraline (Zoloft) 100 mg tablet 1 tablet, Daily (0630) Vitals: 06/02/25 0911 BP: (!) 194/89 Pulse: 67 SpO2: 99% Physical Exam: General: Alert, calm, well-developed HEENT: Pupils equal, round, reactive to light and accommodation. Extraocular movements Neck: Supple, without lymphadenopathy or thyromegaly. No carotid bruits. Lymph: No axillary, cervical, supraclavicular, pre-auricular, submental, or occipital lymphadenopathy, Cardiovascular: Regular rate and rhythm, with normal S1 and S2. apical murmurs 3/6, no rubs or gallops. No JVD. 2+ pulses bilaterally - dorsalis pedis and radial. Lungs: lung clear. No wheezes. No accessory muscle use or cyanosis. No tenderness to palpation. Abdomen: Normoactive bowel sounds. Soft, flat, non-tender, and non-distended. No hepatosplenomegaly; liver span approximately 10 cm. Skin: Warm, dry, well-perfused. No rashes or other lesions. Extremities: 2+ pulses in upper and lower extremities. No lower extremity pain or edema; legs are symmetric in appearance. Neuro: Alert and oriented to person, place, and time. Able to communicate well. 5/5 strength in all extremities bilaterally. Sensation intact in all extremities. Normal gait. Last Labs: Computed eGFR Cre unavailable. One or more values for this score either were not found within the given timeframe or did not fit some other criterion. CBC - No results in last year. _ _ _ _ BMP No results found for requested labs within last 365 days. No results found for requested labs within last 365 days. No results found for requested labs within last 365 days. <No results found for requested labs within last 365 days. No results found for requested labs within last 365 days. No results found for requested labs within last 365 days. No results found for requested labs within last 365 days. CMP - No results in last year. _ _ _ --- _ _ _ _ _ PTT - No results in last year. _ _ _ No results found for: TROPHS , BNP I personally review CBC and BMP KCCQ Questionnaire 1 Heart failure affects different people in different ways. Some feel shortness of breath while others feel fatigue. Please indicate how much you are limited by heart failure (shortness of breath or fatigue) in your ability to do the following activities over the past 2 weeks. PRE PROCEDURE A.) Showering/bathing 3. Moderately B.) Walking 1 block on level ground 4. Slightly C.) Hurrying or Jogging 5. Not at All 2. Over the past 2 weeks, how many times did you have swelling in your feet, ankles or legs when you woke up in the morning? 4. Less than once a week 3. Over the past 2 weeks, on average, how many times has fatigue limited your ability to do what you wanted? 3. At least once a day 4. Over the past 2 weeks, on average, how many times has shortness of breath limited your ability to do what you wanted? 4. 3 or more times a week but not every day 5. Over the past 2 weeks, on average, how many times have you been forced to sleep sitting up in a chair or with at least 3 pillows to prop you up because of shortness of breath? 3 or more times a week but not every day 6. Over the past 2 weeks, how much has your heart failure limited your enjoyment of life? It has extremely limited my enjoyment of life 7. If you had to spend the rest of your life with your heart failure the way it is right now, how would you feel about this? 1. Not at all 8. How much does your heart failure affect your lifestyle? Please indicate how your heart failure may have limited yourparticipation in the following activities over the past 2 weeks A.) Hobbies, recreational activities 1. 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 Limited quite a bit 5 M[address] 11.72 seconds Impression: Patient is a 40-year-old male with a past medical history described above who is presenting for evaluation of severe mitral regurgitation. It is important to note that patient is being considered for a pancreas kidney transplant because of his type 1 diabetes and long-term dialysis dependency. As part of this he is eager to undergo mitral intervention as a bridge to being listed for transplant. From a symptoms standpoint, he does have worsening dyspnea and orthopnea which is likely associated with the mitral regurgitation. Is important to note that he also has chronically elevated blood pressure which is refractory to 5 doses of high blood pressure medications. No clear etiology of resistant hypertension outside of chronic renal disease has been documented. It is possible that the high blood pressure is contributing to the mitral regurgitation. He presented to [facility] earlier this year where he underwent a heart catheterization which showed in-stent restenosis of the LAD. He was also found to have severe mitral regurgitation. Open heart surgery was offered but he declined. He then underwent percutaneous coronary intervention of his LAD ISR. He had a transesophageal echocardiogram done at that time, and he states that his blood pressure was normal during this test, and he was still found to have severe mitral regurgitation. As a result he was referred to us for consideration for [id number] repair. Unfortunately we do not have his MURIEL images available to us at this time. However his TTE images do demonstrate a severely regurgitant central jet across the mitral valve without any clear prolapse or flail. There appears to be enough posterior leaflet length and valve area during diastole to make [id number] repair feasible. This may be a potential bridge to being listed for transplant. While he is not a prohibitive candidate for surgery, open surgical repair/replacement of his valve would require a longer recovery time which could potentially delay his transplant listing even further. Plan: -We will get CT TAVR protocol to evaluate for surgical candidacy -We will need to obtain MURIEL images from [facility] - Anesthesia visit for likely [id number] repair -saw dentist in October but patient needs numerous teeth removed and this will need to happen before a valvular procedure The overall decision regarding the best treatment for this condition is complex. We discussed options of both surgical mitral valve replacement and transcatheter mitral valve replacement/repair along with risks and benefits involved with both of them in detail. We did a multi specialty discussion of this patient in clinic with the cardiac surgeon, nurses and fellows. We discussed all the risks associated with the procedure, including but not limited to stroke, MD, pericardial tamponade, vascular complications, infection and were discussed with the patient. The risk of needing a permament pacemaker was also discussed in detail. The patient verbalized understanding and decided to proceed with the procedure. We will discuss this patient's case at our Valve Team meeting with representatives from Structural Heart and Cardiac Surgery. Our nurse navigators will contact patient with further diagnostic needs and formal plan. Cosigned by Carmen Rowland MD at 06/05/2025 4:16 PM EDT documented in this encounter [facility] Work Phone: 06-01-2025 History and physi man note Note Date/Time June 01, 2025 6:54am [facility] [address] [place] [address] Hospitalist H&P Signed Patient: Yoel Werner MR#: [id number] : 1985 Acct:[id number] Age/Sex: 40 / M Adm Date: 5 Loc: Room: [address] [place] [address] Type: ADM INOo Attending Dr: Adrian Noland MD Copies to: DO Adrian Leblanc MD~ HPI DATE OF EXAMINATION: 05/31/25 CHIEF COMPLAINT: chest pain HISTORY OF PRESENT ILLNESS: 40-year-old male with history of ESRD on hemodialysis MWF schedule, significant CAD s/p multiple stents most recent PCI in January 2025 for LAD in-stent restenosis, hypertension and diabetes who presented to the ED after he developeddizziness, lightheadedness, shortness of breath and left-sided chest pain duringhemodialysis today. Chest pain was left-sided only with deep inspiration and resolved spontaneously. He had slightly more than 4 L fluid removed in dialysis and he states this is the usual amount taken in most of his sessions of dialysis. Blood pressure before and after dialysis was his baseline which is systolic between 160 and 180. He achieved his dry weight following dialysis. No hypoglycemia. All symptoms resolved spontaneously. He is compliant all his medications. In the ED EKG was unchanged from before and showed Q waves in inferior leads, same same T inversions in V5 V6. Case was discussed with the patient's finance admin by ED physician. No risk factors or symptoms to suggest pulmonary embolism so that was not investigated SBP was in the 190s and patient received 2 doses of IV hydralazine, his blood pressure improved significantly. Cardene infusion was ordered but was not required anymore Review of Systems Constitutional Constitutional: Denies fever(s) and Denies malaise Eyes Eyes: Denies blurry vision and Denies other visual disturbances ENT Ears, Nose, Mouth, and Throat: Reports dizziness Cardiovascular Cardiovascular: Reports chest pain Respiratory Respiratory: Denies cough and Denies dyspnea on exertion Gastrointestinal Gastrointestinal: Denies change in stool character and Denies dysphagia Genitourinary Comments: He still makes urine, no changes Musculoskeletal Musculoskeletal: Denies arthralgias and Denies myalgias Integumentary/Breasts Skin/Breast: Denies rash Neurologic Neurologic: Denies convulsions, Denies localized weakness and Denies numbness Hematologic/Lymphatic Hematologic/Lymphatic: Denies easy bleeding [facility] Medical History Type I diabetes mellitus with hypoglycemia History of pneumonia History of COVID-19 Decreased vision of left eye Dialysis patient Nicotine addiction Right shoulder pain Chronic heart failure with preserved ejection fraction (HFpEF) Type 1 diabetes mellitus with hyperglycemia Mitral regurgitation Echo: LVEF 60%, LVH, normal RV function but enlarged, RVSP elevated, severe MR - 08/2024, Wellness examination Insomnia Hypertensive CKD, ESRD on dialysis ASHD (arteriosclerotic heart disease) Echo: LVEF 60%, LVH, normal RV function but enlarged, RVSP elevated, severe MR - 08/2024, LHC x 5, PCI/stent prox LAD x 3 - October 2022 - residual disease in LCx and RCA not able to treat surgically, PCI/stent RCA x 2 - January 2023, No intervention - 02/2024 Secondary hyperparathyroidism Primary hypertension Peyronie's disease Mixed hyperlipidemia EBENEZER (generalized anxiety disorder) Erectile dysfunction due to arterial insufficiency Dependence on renal dialysis Sat-Sat-Sat Cigarette nicotine dependence without complication Chronic venous insufficiency Anemia in chronic kidney disease Monoclonal (M) protein disease, multiple 'M' protein CAD (coronary artery disease) Diabetes mellitus Depression AV fistula left arm Asthmatic bronchitis , chronic PTSD (post-traumatic stress disorder) MGUS (monoclonal gammopathy of unknown significance) History of blood transfusion 2020 Diabetic retinopathy History of myocardial infarction 2021 Surgical History History of cataract removal with insertion of prosthetic lens left eye H/O heart artery stent (~02/2024) x5, PCI/stent prox LAD x 3 - October 2022 - residual disease in LCx and RCA not able to treat surgically, PCI/stent RCA x 2 - January 2023, No intervention - 02/2024, PCI/stent LAD - 01/2025 History of bone marrow biopsy H/O eye surgery right and left repair retina Hx of knee surgery scope at age 17 Hx of vasectomy Family History Mother Liver disease Diabetes Pancreatic cancer Father Diverticulitis Hypertension IBS (irritable bowel syndrome) Stroke Heart disease History of stroke Family history of mental disorder Social History Smoking Status: Former smoker Tobacco Type: cigarettes Substance Use Type: None Substance Abuse Comment: last use approx Apr 2024; Medical card that 2023 Social History Comments: lives with dad Meds Medications and Allergies Allergies ticagrelor (From Brilinta) Allergy (Verified 05/31/25 17:27) shortness of breath Home Medications nitroglycerin 0.4 mg sublingual tablet 0.4 mg sublingual Q5MIN.X3 PRN Chest Pain30 days #25 tabs 11/17/21 [Rx Confirmed 05/31/25] aspirin 81 mg chewable tablet (Children's Aspirin) 81 mg PO QAM 09/10/22 [History Confirmed 05/31/25] isosorbide mononitrate 60 mg tablet,extended release 24 hr 60 mg PO BID 11/12/22[History Confirmed 05/31/25] calcium acetate 667 mg tablet 2,001 mg PO .tidwith meal 11/13/23 [History Confirmed 05/31/25] 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,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,cont (FreeStyle Ramy 3 [place]) #1 ea 03/19/24 [Rx Confirmed 05/31/25] omeprazole 40 mg capsule,delayed release See Rx Instructions .Route .COMPLEX #90caps 04/21/24 [Rx Confirmed 05/31/25] 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 sensor (FreeStyle Ramy 3 Plus Sensor device) #1 ea 05/17/24 [Rx Confirmed 05/31/25] carvedilol 25 mg tablet See Rx Instructions .Route .COMPLEX #180 tabs 07/21/24 [Rx Confirmed 05/31/25] hydralazine 100 mg tablet 100 mg PO BID 30 days #60 tabs 08/07/24 [Rx Confirmed 05/31/25] clopidogrel 75 mg tablet (Plavix) 75 mg PO QAM 08/28/24 [History Confirmed 05/31/25] acetaminophen 500 mg tablet 1,000 mg (2 x 500 mg) PO TID PRN pain 15 days #90 tabs 09/02/24 [Rx Confirmed 05/31/25] atorvastatin 80 mg tablet 80 mg PO QAM 09/16/24 [History Confirmed 05/31/25] insulin lispro 100 unit/mL subcutaneous pen (Humalog KwikPen (U-100) Insulin) See Protocol subcut USEASDIRECTD 10/14/24 [History Confirmed 05/31/25] lisinopril 20 mg tablet See Rx Instructions .Route .COMPLEX #30 tabs 10/18/24 [Rx Confirmed 05/31/25] hydroxyzine HCl 25 mg tablet 25 mg PO QPM anxiety 10/30/24 [History Confirmed 05/31/25] insulin glargine 100 unit/mL (3 mL) subcutaneous pen (Lantus Solostar U-100 Insulin) 20 unit subcut QHS diabetes 10/30/24 [History Confirmed 05/31/25] 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 meter (Accu-Chek Guide Glucose Meter) #1 ea 01/08/25 [Rx Confirmed 05/31/25] gabapentin 100 mg capsule 100 mg PO QHS 01/12/25 [History Confirmed 05/31/25] sertraline 100 mg tablet See Rx Instructions .Route .COMPLEX #90 tabs 01/13/25 [Rx Confirmed 05/31/25] blood sugar diagnostic (Accu-Chek Guide test strips) #100 strips 03/18/25 [Rx Confirmed 05/31/25] furosemide 80 mg tablet 80 mg PO BID 30 days #60 tabs 03/20/25 [Rx Confirmed 05/31/25] famotidine 20 mg tablet See Rx Instructions .Route .COMPLEX #180 tabs 04/13/25 [Rx Confirmed 05/31/25] amlodipine 10 mg tablet 10 mg PO DAILY 30 days #30 tabs 04/22/25 [Rx Confirmed 05/31/25] Exam Physical Exam Vital Signs: Temp Pulse Resp BP Pulse Ox O2 Del Method 97.9 F 69 16 169/81 H 98 Room Air 05/31/25 17:23 05/31/25 21:56 05/31/25 21:56 05/31/25 21:56 05/31/25 21:56 05/31/25 21:56 Const General: cooperative and lethargic HEENT Head: normocephalic and atraumatic Eyes General: not dysmorphic Resp Auscultation: clear to auscultation bilaterally Cardio Rate: regular rate Rhythm: regular rhythm Other: Systolic murmur best heard at the apex GI Palpation: soft, not firm and no hernias Skin General: rashes and/or lesions noted Extrem Other: Left arm AV fistula with thrill and bruit Results - Hospitalist H&P Lab Results Labs: Laboratory Last Values Corrected WBC 3.6 X10E3/uL (4.1-10.5) L 05/31/25 17:45 Uncorrected WBC Count 3.6 x10E3/uL (4.1-10.5) L 05/31/25 17:45 RBC 4.28 x10E6/uL (3.90-5.60) 05/31/25 17:45 Hgb 11.9 g/dL (13.0-17.0) L 05/31/25 17:45 Hct 36.4 % (38.8-50.0) L 05/31/25 17:45 MCV 85.1 fl (83.5-101) 05/31/25 17:45 MCH 27.8 pg (27.5-35.2) 05/31/25 17:45 MCHC 32.7 g/dL (32.5-35.6) 05/31/25 17:45 RDW 16.7 % (12.0-14.8) H 05/31/25 17:45 Plt Count 99 x10E3/uL (150-450) L 05/31/25 17:45 MPV 8.0 fl (6.6-10.1) 05/31/25 17:45 Neut % (Auto) 73.1 % (.) 05/31/25 17:45 Lymph % (Auto) 13.8 % (.) 05/31/25 17:45 Winkler % (Auto) 6.6 % (.) 05/31/25 17:45 Eos % (Auto) 4.5 % (.) 05/31/25 17:45 Baso % (Auto) 2.0 % (.) 05/31/25 17:45 Nucleat RBC Rel Count 0.1 /100 WBC (0-0.5) 05/31/25 17:45 Neut # (Auto) 2.6 x10E3/uL (1.8-7.7) 05/31/25 17:45 Lymph # (Auto) 0.5 x10E3/uL (1.00-4.8) L 05/31/25 17:45 Winkler # (Auto) 0.2 x10E3/uL (0.0-0.8) 05/31/25 17:45 Eos # (Auto) 0.2 x10E3/uL (0.0-0.45) 05/31/25 17:45 Baso # (Auto) 0.1 x10E3/uL (0.0-0.2) 05/31/25 17:45 Monocyte Dist Width 17.71 % (0.00-20.00) 05/31/25 17:45 PHA Creatinine Clear 23.53 05/31/25 17:45 Sodium 133 mmol/L (136-145) L 05/31/25 17:45 Potassium 3.8 mmol/L (3.5-5.1) 05/31/25 17:45 Chloride 96 mmol/L (98-107) L 05/31/25 17:45 Carbon Dioxide 30.2 mmol/L (21.0-31.0) 05/31/25 17:45 Anion Gap 10.6 mEq/L (6.0-15.0) 05/31/25 17:45 BUN 26 mg/dL (7-25) H 05/31/25 17:45 Creatinine 4.64 mg/dL (0.70-1.30) H D 05/31/25 17:45 Est GFR (CKD-EPI) 15.471 mL/Min 05/31/25 17:45 Glucose 214 mg/dL (70-100) H D 05/31/25 17:45 Calcium 8.8 mg/dL (8.6-10.3) 05/31/25 17:45 Troponin I High Sens 73 ng/L (0-20) H* 05/31/25 19:35 B-Natriuretic Peptide 3885.0 pg/mL (5-100) H 05/31/25 17:45 Assessment & Plan Assessment/Plan (1) Hypertensive urgency: Plan: Severe asymptomatic hypertension. No evidence of hypertensive emergency. Euvolemic on exam, no fluid retention or signs of inadequate dialysis Compliant to his medications. Not on clonidine to suggest rebound hypertension *PLAN: Increase hydralazine to 3 times daily, currently he is on 100 mg twice daily. No indication for IV medications (2) Atypical chest pain: Plan: EKG unchanged and troponin slightly elevated from kidney disease and severe hypertension *PLAN: Continue to trend troponin if significant increase happen or dynamic EKG changes then will consider acute coronary syndrome Plan Other chronic medical conditions: CAD: Continue dual antiplatelets aspirin Plavix, high intensity statin, beta-blockers and combination of hydralazine and nitrates Diabetes: Continue Lantus 20 units, low-dose Premeal sliding scale ESRD: Continue Lasix he still makes urine. Next dialysis is Saturday if patient stays here we will call nephrology for dialysis. Outpatient evaluation for transplant is undergoing IP vs OBS Justification Based on differential dx, clinical care plan, and risk of adverse events, if untreated, in my clinical judgement this patient requires an acute care setting as: OBSERVATION because of an expectation of an under 2 midnight stay. Estimated length of stay (# of days): 1 Documented By: Adrian Noland MD 05/31/25 220 3 Signed By: <Electronically signed by Adrian Noland MD> 06/01/25 0654 [facility] Work Phone: 1(385) 265-428110-09-2025 History of Present illness Narrative* Brianna Gomez, DO - 05/27/2025 10:40 AM EDT Chief Complaint Patient presents with Follow-up 6M Follow up for Coronary Artery Disease Subjective Yoel Werner is a 40 y.o. male 40-year-old gentleman returns for follow-up following recent elective left heart catheterization and IFR guided PCI of the proximal LAD with 3.5 mm Jefferson stent. He is otherwise doing very well, remains at hemodialysis due to end-stage renal disease secondary to type 1 diabetes mellitus. More recently he has had hypoglycemic episodes details of which are reviewed, his short acting insulin has been discontinued He has historically been followed by [facility], undergoing evaluation for renal transplantation; he was found to have significant mitral regurgitation, recommended to have elective heart catheterization prior to possible surgical MVR/repair. He states he does not want any open surgical repair at this time Heart catheterization ensued, he was found to have proximal LAD disease details of which were reviewed, PCI of the LAD that was successful; follow-up echo now reveals normalized LV function with ejection fraction of 55 to 60% and 4+ mitral regurgitation. He has a history of large anterior MD with severe three-vessel disease and eventually underwent staged three-vessel interventions involving the mid LAD, mid circumflex and proximal RCA with drug-eluting stents between October 2021 and January 2023; performed by myself.. He denies any angina, when his dry weight is higher than 76 kg, he becomes short of breath with exertion with water retention and higher than 80 kg he has overt pulmonary congestion. His current dry weight ranges between 70 to less than 76 kg. He is persistently hypertensive even after dialysis, systolic blood pressures ranging anywhere between 150 to 200 mmHg, today 174/80 mmHg Recommendations: Will refer to structural heart team for consideration of MitraClip versus mitral valve repair, will forward message to Drs. Orantes and structural heart team, escalate hydralazine to 100 mg 3 times daily, follow-up within the next 6 months Review of Systems Cardiovascular: Positive for dyspnea on exertion. All other systems reviewed and are negative. Vitals: 05/27/25 1106 05/27/25 1136 BP: (!) 178/110 174/80 BP Location: Right arm Right arm Patient Position: Sitting Sitting Pulse: 72 Weight: 79.8 kg (176 lb) Height: 1.854 m (6' 1 ) Objective Physical Exam Constitutional: Appearance: Normal appearance. HENT: Nose: Nose normal. Neck: Vascular: No carotid bruit. Cardiovascular: Rate and Rhythm: Normal rate. Pulses: Normal pulses. Heart sounds: Murmur heard. Comments: Severe mitral valve regurg. Mitral valve murmur heard Pulmonary: Effort: Pulmonary effort is normal. Abdominal: [...] Allergies Brilinta [ticagrelor] Current Medications Current Outpatient Medications Medication Instructions amLODIPine (NORVASC) 10 mg, Daily aspirin 81 mg, oral, Daily atorvastatin (LIPITOR) 80 mg, oral, Nightly calcium acetate (PHOSLO) 1,334 mg, 3 times daily carvedilol (COREG) 25 mg, 2 times daily clopidogrel (PLAVIX) 75 mg, oral, Daily epoetin alexus (EPOGEN INJ) 8,000 Units, 3 times weekly escitalopram (LEXAPRO) 10 mg, Daily famotidine (PEPCID) 20 mg, Nightly furosemide (LASIX) 40 mg, oral, Daily heparin, porcine (PF) 1,000 Units, 3 times weekly HumaLOG KwikPen Insulin 100 unit/mL injection Inject under the skin. hydrALAZINE (APRESOLINE) 100 mg, oral, Daily hydrOXYzine HCL (ATARAX) 25 mg, Nightly isosorbide mononitrate ER (IMDUR) 60 mg, 2 times daily loratadine (CLARITIN) 10 mg, Every other day nitroglycerin (NITROSTAT) 0.4 mg, Every 5 min PRN omeprazole (PriLOSEC) [address] capsule 1 capsule, Daily sertraline (Zoloft) 100 mg tablet 1 tablet, Daily (0630) Assessment/Plan 1. ASHD (arteriosclerotic heart disease) Follow Up In Cardiology 2. History of MD (myocardial infarction) 3. Status post insertion of drug eluting coronary artery stent 4. Nonrheumatic mitral valve regurgitation 5. Essential (primary) hypertension 6. Mixed hyperlipidemia 7. Type 2 diabetes mellitus with chronic kidney disease on chronic dialysis, with long-term currentuse of insulin (Multi) 8. ESRD (end stage renal disease) on dialysis (Multi) 9. BMI 23.0-23.9, adult 10. ACEI/ARB contraindicated 11. Current every day smoker 12. Vapes nicotine containing substance 13. Essential hypertension, benign Scribe Attestation By signing my name below, [...] exam, discussion and plan. [facility] Work Phone: 1(363) 884-991210-09-2025 Instructions* Patient Instructions* Alana Pace LPN - 05/27/2025 10:40 AM EDT Please bring all medicines, vitamins, and herbal supplements with you when you come to the office. Prescriptions will not be filled unless you are compliant with your follow up appointments or have a follow up appointment scheduled as per instruction of your physician. Refills should be requested at the time of your visit. [facility] Work Phone: [phone]) 961-566109-18-2025 History and physical note Author Dwayne [facility] Note Date/Time May 06, 2025 5:36am [facility] [address] [place] [address] Hospitalist H&P Signed Patient: Yoel Werner MR#: [id number] : 1985 Acct:[id number] Age/Sex: 40 / M Adm Date: 5 Loc: ER Room: Type: [facility] ER Attending Dr: Copies to: DO Dwayne Leblanc DO Nidal N Choujaa, DO~ HPI DATE OF EXAMINATION: 05/06/25 CHIEF COMPLAINT: Prolonged hypoglycemia. HISTORY OF PRESENT ILLNESS: This is a 40-year-old man with diabetes on insulin and hemodialysis for end- stage renal disease for the last 2 years who came to the emergency room this evening with profound hypoglycemia. In the ER he was treated with multiple doses of intravenous D50 and given plentyof food. But his blood glucose did not come up. Therefore the ER doctor asked for him to be admitted to the hospital. The hospital is very full so he has been boarding in the emergency room. His blood glucoses here were 64, 74, 50, 140, 73, 59, and 116. Over the last couple hours his blood glucoses have gotten better at 128, 183, and now 217. Most recently in the ER has been running IV D10 with half-normal saline at 100 mL an hour. The patient says he has been in his usual state of health lately. He got his hemodialysis on Saturday like normal. He says a lot of times his blood sugars go up after hemodialysis because he is bored for 4 hours and he likes to chew onpretzels while they are running the hemodialysis. He is working on getting a kidney transplant. He says they actually plan to do combination of a kidney and pancreas transplant. He is working with [facility] on this. He says that he would be one of the first to get this typeof transplant at the [facility]. To control his diabetes he uses Lantus 20 units at nighttime. He does that at nighttime to prevent hyperglycemia at nighttime. He uses a very small slidingscale such as 3 units of short acting insulin when his blood glucose is 300. He does have a ramy for continuous glucose monitoring. He showed me his readings on that. So fortunately he would be alerted by the ramy if he had hypoglycemia. He says that normal blood glucose for me is 180 and showing me his readings he very rarely has severe hypoglycemias down to 60 or 50 or below. He says that occasionally he gets hypoglycemic but he is able to bring it back but eating carbohydrate rich foods. He said this is the only time in a long time that his blood sugar is gone this low and state this low. He cannot think of anything that caused it to be this way at this time. He has not had any other changes to his health lately: No fevers chills. No evidence of infection. No shortness of breath. He does say I am above my weight so I am not sure why hemodialysis has not been able to get him to his dry weight. I did tell him that I think he should find something else to snack on besides pretzels as they are rich in both carbohydrates and sodium. He describes his diabetes as type II that then became type I. He said that he got diabetes as a child and he said I did not take care of myself and that is why I am on dialysis. Review of Systems Review of Systems Review of systems: 10 systems are reviewed and are negative except as mentioned elsewhere in the documentation. [facility] Medical History Type I diabetes mellitus with hypoglycemia History of pneumonia History of COVID-19 Decreased vision of left eye Dialysis patient Nicotine addiction Right shoulder pain Chronic heart failure with preserved ejection fraction (HFpEF) Type 1 diabetes mellitus with hyperglycemia Mitral regurgitation Wellness examination Insomnia Hypertensive CKD, ESRD on dialysis ASHD (arteriosclerotic heart disease) Echo: LVEF 60%, LVH, normal RV function but enlarged, RVSP elevated, severe MR - 08/2024, LHC x 5, PCI/stent prox LAD x 3 - October 2022 - residual disease in LCx and RCA not able to treat surgically, PCI/stent RCA x 2 - January 2023, No intervention - 02/2024 Secondary hyperparathyroidism Primary hypertension Peyronie's disease Mixed hyperlipidemia EBENEZER (generalized anxiety disorder) Erectile dysfunction due to arterial insufficiency Dependence on renal dialysis Sat-Sat-Sat Cigarette nicotine dependence without complication Chronic venous insufficiency Anemia in chronic kidney disease Monoclonal (M) protein disease, multiple 'M' protein CAD (coronary artery disease) Diabetes mellitus Depression AV fistula left arm Asthmatic bronchitis , chronic PTSD (post-traumatic stress disorder) MGUS (monoclonal gammopathy of unknown significance) History of blood transfusion 2020 Diabetic retinopathy History of myocardial infarction 2021 Surgical History History of cataract removal with insertion of prosthetic lens left eye H/O heart artery stent (~02/2024) x5, PCI/stent prox LAD x 3 - October 2022 - residual disease in LCx and RCA not able to treat surgically, PCI/stent RCA x 2 - January 2023, No intervention - 02/2024, PCI/stent LAD - 01/2025 History of bone marrow biopsy H/O eye surgery right and left repair retina Hx of knee surgery scope at age 17 Hx of vasectomy Family History Mother Liver disease Diabetes Pancreatic cancer Father Diverticulitis Hypertension IBS (irritable bowel syndrome) Stroke Heart disease History of stroke Family history of mental disorder Social History Smoking Status: Former smoker Tobacco Type: cigarettes Substance Use Type: None Substance Abuse Comment: last use approx Apr 2024; Medical card that 2023 Social History Comments: lives with dad Meds Medications and Allergies Allergies ticagrelor (From [employer]) Allergy (Verified 05/05/25 22:30) shortness of breath Home Medications nitroglycerin 0.4 mg sublingual tablet 0.4 mg sublingual Q5MIN.X3 PRN Chest Pain30 days #25 tabs 11/17/21 [Rx Confirmed 04/22/25] aspirin 81 mg chewable tablet (Children's Aspirin) 81 mg PO QAM 09/10/22 [History Confirmed 04/22/25] isosorbide mononitrate 60 mg tablet,extended release 24 hr 60 mg PO BID 11/12/22[History Confirmed 04/22/25] calcium acetate 667 mg tablet 2,001 mg PO .tidwith meal 11/13/23 [History Confirmed 04/22/25] 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,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,cont (FreeStyle Ramy 3 [place]) #1 ea 03/19/24 [Rx Confirmed 04/22/25] omeprazole 40 mg capsule,delayed release See Rx Instructions .Route .COMPLEX #90caps 04/21/24 [Rx Confirmed 04/22/25] 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 sensor (FreeStyle Ramy 3 Plus Sensor device) #1 ea 05/17/24 [Rx Confirmed 04/22/25] carvedilol 25 mg tablet See Rx Instructions .Route .COMPLEX #180 tabs 07/21/24 [Rx Confirmed 04/22/25] hydralazine 100 mg tablet 100 mg PO BID 30 days #60 tabs 08/07/24 [Rx Confirmed 04/22/25] clopidogrel 75 mg tablet (Plavix) 75 mg PO QAM 08/28/24 [History Confirmed 04/22/25] acetaminophen 500 mg tablet 1,000 mg (2 x 500 mg) PO TID PRN pain 15 days #90 tabs 09/02/24 [Rx Confirmed 04/22/25] atorvastatin 80 mg tablet 80 mg PO QAM 09/16/24 [History Confirmed 04/22/25] insulin lispro 100 unit/mL subcutaneous pen (Humalog KwikPen (U-100) Insulin) See Protocol subcut USEASDIRECTD 10/14/24 [History Confirmed 04/22/25] lisinopril 20 mg tablet See Rx Instructions .Route .COMPLEX #30 tabs 10/18/24 [Rx Confirmed 04/22/25] hydroxyzine HCl 25 mg tablet 25 mg PO QPM anxiety 10/30/24 [History Confirmed 04/22/25] insulin glargine 100 unit/mL (3 mL) subcutaneous pen (Lantus Solostar U-100 Insulin) 20 unit subcut QHS diabetes 10/30/24 [History Confirmed 04/22/25] 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 meter (Accu-Chek Guide Glucose Meter) #1 ea 01/08/25 [Rx Confirmed 04/22/25] gabapentin 100 mg capsule 100 mg PO QHS 01/12/25 [History Confirmed 04/22/25] sertraline 100 mg tablet See Rx Instructions .Route .COMPLEX #90 tabs 01/13/25 [Rx Confirmed 04/22/25] blood sugar diagnostic (Accu-Chek Guide test strips) #100 strips 03/18/25 [Rx Confirmed 04/22/25] furosemide 80 mg tablet 80 mg PO BID 30 days #60 tabs 03/20/25 [Rx Confirmed 04/22/25] famotidine 20 mg tablet See Rx Instructions .Route .COMPLEX #180 tabs 04/13/25 [Rx Confirmed 04/22/25] amlodipine 10 mg tablet 10 mg PO DAILY 30 days #30 tabs 04/22/25 [Rx Confirmed 04/22/25] Allergy/Medication Comments: Please note that the home medication list may contain elements that are not accurate. This list of home medications will be updated during the hospital stay as more information becomes available. Exam Physical Exam Vital Signs: Temp Pulse Resp BP Pulse Ox O2 Del Method 97.9 F 62 20 151/70 H 96 Room Air 05/05/25 22:31 05/06/25 04:00 05/05/25 22:31 05/06/25 04:00 05/06/25 04:00 05/06/25 04:00 Narrative: GEN: Awake, alert, oriented x 3. Lungs: Clear to auscultation bilaterally, no wheezing, no crackles. Heart: Regular rate and rhythm, no murmurs, rubs, or gallops. Abdomen: Soft, normal bowel sounds, no rigidity, guarding, or acute peritoneal signs. Extremities: No swelling or cords in the calves bilaterally, no edema in the ankles bilaterally. Skin: No systemic rashes or lesions. Psychiatric: Calm. Conversant. Cooperative. Results - Hospitalist H&P Lab Results Labs: Laboratory Last Values Corrected WBC 4.7 X10E3/uL (4.1-10.5) 05/05/25 23:43 Uncorrected WBC Count 4.7 x10E3/uL (4.1-10.5) 05/05/25 23:43 RBC 4.16 x10E6/uL (3.90-5.60) 05/05/25 23:43 Hgb 12.0 g/dL (13.0-17.0) L 05/05/25 23:43 Hct 36.4 % (38.8-50.0) L 05/05/25 23:43 MCV 87.4 fl (83.5-101) 05/05/25 23:43 MCH 28.8 pg (27.5-35.2) 05/05/25 23:43 MCHC 33.0 g/dL (32.5-35.6) 05/05/25 23:43 RDW 19.6 % (12.0-14.8) H 05/05/25 23:43 Plt Count 142 x10E3/uL (150-450) L 05/05/25 23:43 MPV 8.6 fl (6.6-10.1) 05/05/25 23:43 Neut % (Auto) 68.8 % (.) 05/05/25 23:43 Lymph % (Auto) 17.1 % (.) 05/05/25 23:43 Winkler % (Auto) 6.9 % (.) 05/05/25 23:43 Eos % (Auto) 4.8 % (.) 05/05/25 23:43 Baso % (Auto) 2.4 % (.) 05/05/25 23:43 Nucleat RBC Rel Count 0.2 /100 WBC (0-0.5) 05/05/25 23:43 Neut # (Auto) 3.2 x10E3/uL (1.8-7.7) 05/05/25 23:43 Lymph # (Auto) 0.8 x10E3/uL (1.00-4.8) L 05/05/25 23:43 Winkler # (Auto) 0.3 x10E3/uL (0.0-0.8) 05/05/25 23:43 Eos # (Auto) 0.2 x10E3/uL (0.0-0.45) 05/05/25 23:43 Baso # (Auto) 0.1 x10E3/uL (0.0-0.2) 05/05/25 23:43 Monocyte Dist Width 17.15 % (0.00-20.00) 05/05/25 23:43 Sample Site Venous 05/06/25 00:03 VBG pH 7.47 (7.32-7.43) H 05/06/25 00:03 VBG pCO2 40.4 mmHg (38.0-50.0) 05/06/25 00:03 VBG pO2 68.0 mmHg (35.0-45.0) H 05/06/25 00:03 VBG HCO3 28.5 mmol/L (23.0-29.0) 05/06/25 00:03 VBG Total CO2 29.7 mmol/L (24.0-29.0) H 05/06/25 00:03 VBG O2 Saturation 93.6 % (73.0-76.0) H* 05/06/25 00:03 VBG O2 Content 7.4 mmol/L (6.6-9.7) 05/06/25 00:03 VBG Base Excess 4.4 mmol/L (-3.0-3.0) H 05/06/25 00:03 FiO2 21 % 05/06/25 00:03 Critical Value 05/06/25 00:03 PHA Creatinine Clear 26.42 05/05/25 23:43 Sodium 135 mmol/L (136-145) L 05/05/25 23:43 Potassium 3.5 mmol/L (3.5-5.1) 05/05/25 23:43 Chloride 94 mmol/L (98-107) L 05/05/25 23:43 Carbon Dioxide 29.3 mmol/L (21.0-31.0) 05/05/25 23:43 Anion Gap 15.2 mEq/L (6.0-15.0) H 05/05/25 23:43 BUN 18 mg/dL (7-25) 05/05/25 23:43 Creatinine 4.20 mg/dL (0.70-1.30) H 05/05/25 23:43 Est GFR (CKD-EPI) 17.436 mL/Min 05/05/25 23:43 Glucose 42 mg/dL (70-100) L* 05/05/25 23:43 POC Glucose 217 mg/dl 05/06/25 05:18 POC Glucose Comment Glu2: cleaned meter 05/06/25 05:18 POC Glucose Comment Will notify /rn 05/06/25 01:27 Calcium 9.9 mg/dL (8.6-10.3) 05/05/25 23:43 Total Bilirubin 0.7 mg/dl (0.3-1.0) 05/05/25 23:43 AST 15 U/L (13-39) 05/05/25 23:43 ALT 10 U/L (7-52) 05/05/25 23:43 Alkaline Phosphatase 60 U/L (34-104) 05/05/25 23:43 Total Protein 8.2 gm/dL (6.4-8.9) 05/05/25 23:43 Albumin 4.8 gm/dL (3.5-5.7) 05/05/25 23:43 Globulin 3.4 gm/dL 05/05/25 23:43 Albumin/Globulin Ratio 1.4 05/05/25 23:43 TSH 3rd Generation 2.93 uIU/mL (0.45-5.33) 05/05/25 23:43 ABG Interpretation ABG results: 05/06/25 00:03 VBG pH 7.47 H VBG pCO2 40.4 VBG pO2 68.0 H VBG HCO3 28.5 VBG Total CO2 29.7 H VBG O2 Saturation 93.6 H* VBG Base Excess 4.4 H Assessment & Plan Assessment/Plan (1) Hypoglycemia: (2) Type I diabetes mellitus with hypoglycemia: (3) ESRD (end stage renal disease): Plan Assessment: Severe and prolonged hypoglycemia. Diabetes mellitus type 1 with insulin requiring diabetes. End-stage renal disease. Future plans for a kidney transplant combined with a pancreas transplant. Discussion: I think that the patient's severe hypoglycemia is almost over. With his blood glucose now being 217 I had the ER nurse turned his dextrose infusion down to 20mL/h. In about 2 hours he should be able to eat breakfast. I have ordered him to have regular breakfast. At that time the IV fluids can be stopped. His blood sugars did not bottom out again between breakfast and lunch then I think he will be suitable for discharge to home. I did student assistance counselor the patient that he will need to watch his blood glucoses very closely over the next couple days as they are likely to be more labile than normal after having them go this low and then receiving the multiple treatments to bring them back up. He expressed understanding and said that he will be verycautious with the dosing of his long-acting and short acting insulin. IP vs OBS Justification Based on differential dx, clinical care plan, and risk of adverse events, if untreated, in my clinical judgement this patient requires an acute care setting as: OBSERVATION because of an expectation of an under 2 midnight stay. Estimated length of stay (# of days): 1 Documented By: Dwayne Little DO 0529 Signed By: <Electronically signed by Dwayne Little DO> 05/06/25 0536 [facility] Work Phone: [phone] History and physical [address] [address] Hospitalist H&P Signed Patient: Yoel Werner MR#: [id number] : 1985 Acct:[id number] Age/Sex: 40 / M Adm Date: 5 Loc: ER Room: Type: [facility] ER Attending Dr: Copies to: DO Dwayne Leblanc DO Nidal N Choujaa, DO~ HPI DATE OF EXAMINATION: 05/06/25 CHIEF COMPLAINT: Prolonged hypoglycemia. HISTORY OF PRESENT ILLNESS: This is a 40-year-old man with diabetes on insulin and hemodialysis for end- stage renal disease forthe last 2 years who came to the emergency room this evening with profound hypoglycemia. In the ER he was treated with multiple doses of intravenous D50 and given plentyof food. But his blood glucose did not come up. Therefore the ER doctor asked for him to be admitted to the hospital. The hospital is very full so he has been boarding in the emergency room. His blood glucoses here were 64, 74, 50, 140, 73, 59, and 116. Over the last couple hours his blood glucoses have gotten better at 128, 183, and now 217. Most recently in the ER has been running IV D10 with half-normal saline at 100 mL an hour. The patient says he has been in his usual state of health lately. He got his hemodialysis on Saturday like normal. He says a lot of times his blood sugars go up after hemodialysis because he is bored for 4 hours and he likes to chew onpretzels while they are running the hemodialysis. He is working on getting a kidney transplant. He says they actually plan to do combination of a kidney and pancreas transplant. He is working with [facility] on this. He says that he would be one of the first to get this typeof transplant at the [facility]. To control his diabetes he uses Lantus 20 units at nighttime. He does that at nighttime to prevent hyperglycemia at nighttime. He uses a very small slidingscale such as 3 units of short acting insulin when his blood glucose is 300. He does have a ramy for continuous glucose monitoring. He showed me his readings on that. So fortunately he would be alerted by the ramy if he had hypoglycemia. He says that normal blood glucose for me is 180 and showing me his readings he very rarely has severe hypoglycemias down to 60 or 50 or below. He says that occasionally he gets hypoglycemic but he is able to bring it back but eating carbohydrate rich foods. He said this is the only time in a long time that his blood sugar is gone this low and state this low. He cannot think of anything that caused it to be this way at this time. He has not had any other changes to his health lately: No fevers chills. No evidence of infection. No shortness of breath. He does say I am above my weight so I am not sure why hemodialysis has notbeen able to get him to his dry weight. I did tell him that I think he should find something else to snack on besides pretzels as they are rich in both carbohydrates and sodium. He describes his diabetes as type II that then became type I. He said that he got diabetes as a child and he said I did not take care of myself and that is why I am on dialysis. Review of Systems Review of Systems Review of systems: 10 systems are reviewed and are negative except as mentioned elsewhere in the documentation. [facility] Medical History Type I diabetes mellitus with hypoglycemia History of pneumonia History of COVID-19 Decreased vision of left eye Dialysis patient Nicotine addiction Right shoulder pain Chronic heart failure with preserved ejection fraction (HFpEF) Type 1 diabetes mellitus with hyperglycemia Mitral regurgitation Wellness examination Insomnia Hypertensive CKD, ESRD on dialysis ASHD (arteriosclerotic heart disease) Echo: LVEF 60%, LVH, normal RV function but enlarged, RVSP elevated, severe MR - 08/2024, LHC x 5, PCI/stent prox LAD x 3 - October 2022 - residual disease in LCx and RCA not able to treat surgically, PCI/stent RCA x 2 - January 2023, No intervention - 02/2024 Secondary hyperparathyroidism Primary hypertension Peyronie's disease Mixed hyperlipidemia EBENEZER (generalized anxiety disorder) Erectile dysfunction due to arterial insufficiency Dependence on renal dialysis Sat-Sat-Sat Cigarette nicotine dependence without complication Chronic venous insufficiency Anemia in chronic kidney disease Monoclonal (M) protein disease, multiple 'M' protein CAD (coronary artery disease) Diabetes mellitus Depression AV fistula left arm Asthmatic bronchitis , chronic PTSD (post-traumatic stress disorder) MGUS (monoclonal gammopathy of unknown significance) History of blood transfusion 2020 Diabetic retinopathy History of myocardial infarction 2021 Surgical History History of cataract removal with insertion of prosthetic lens left eye H/O heart artery stent (~02/2024) x5, PCI/stent prox LAD x 3 - October 2022 - residual disease in LCx and RCA not able to treat surgically, PCI/stent RCA x 2 - January 2023, No intervention - 02/2024, PCI/stent LAD - 01/2025 History of bone marrow biopsy H/O eye surgery right and left repair retina Hx of knee surgery scope at age 17 Hx of vasectomy Family History Mother Liver disease Diabetes Pancreatic cancer Father Diverticulitis Hypertension IBS (irritable bowel syndrome) Stroke Heart disease History of stroke Family history of mental disorder Social History Smoking Status: Former smoker Tobacco Type: cigarettes Substance Use Type: None Substance Abuse Comment: last use approx Apr 2024; Medical card that 2023 Social History Comments: lives with dad Meds Medications and Allergies Allergies ticagrelor (From Brilinta) Allergy (Verified 05/05/25 22:30) shortness of breath Home Medications nitroglycerin 0.4 mg sublingual tablet 0.4 mg sublingual Q5MIN.X3 PRN Chest Pain30 days #25 tabs 11/17/21 [Rx Confirmed 04/22/25] aspirin 81 mg chewable tablet (Children's Aspirin) 81 mg PO QAM 09/10/22 [History Confirmed 04/22/25] isosorbide mononitrate 60 mg tablet,extended release 24 hr 60 mg PO BID 11/12/22[History Confirmed 04/22/25] calcium acetate 667 mg tablet 2,001 mg PO .tidwith meal 11/13/23 [History Confirmed 04/22/25] 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,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,cont (FreeStyle Ramy 3 [place]) #1 ea 03/19/24 [Rx Confirmed 04/22/25] omeprazole 40 mg capsule,delayed release See Rx Instructions .Route .COMPLEX #90caps 04/21/24 [Rx Confirmed 04/22/25] 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 sensor (FreeStyle Ramy 3 Plus Sensor device) #1 ea 05/17/24 [Rx Confirmed 04/22/25] carvedilol 25 mg tablet See Rx Instructions .Route .COMPLEX #180 tabs 07/21/24 [Rx Confirmed 04/22/25] hydralazine 100 mg tablet 100 mg PO BID 30 days #60 tabs 08/07/24 [Rx Confirmed 04/22/25] clopidogrel 75 mg tablet (Plavix) 75 mg PO QAM 08/28/24 [History Confirmed 04/22/25] acetaminophen 500 mg tablet 1,000 mg (2 x 500 mg) PO TID PRN pain 15 days #90 tabs 09/02/24 [Rx Confirmed 04/22/25] atorvastatin 80 mg tablet 80 mg PO QAM 09/16/24 [History Confirmed 04/22/25] insulin lispro 100 unit/mL subcutaneous pen (Humalog KwikPen (U-100) Insulin) See Protocol subcut USEASDIRECTD 10/14/24 [History Confirmed 04/22/25] lisinopril 20 mg tablet See Rx Instructions .Route .COMPLEX #30 tabs 10/18/24 [Rx Confirmed 04/22/25] hydroxyzine HCl 25 mg tablet 25 mg PO QPM anxiety 10/30/24 [History Confirmed 04/22/25] insulin glargine 100 unit/mL (3 mL) subcutaneous pen (Lantus Solostar U-100 Insulin) 20 unit subcutQ diabetes 10/30/24 [History Confirmed 04/22/25] 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 meter (Accu-Chek Guide Glucose Meter) #1 ea 01/08/25 [Rx Confirmed 04/22/25] gabapentin 100 mg capsule 100 mg PO QHS 01/12/25 [History Confirmed 04/22/25] sertraline 100 mg tablet See Rx Instructions .Route .COMPLEX #90 tabs 01/13/25 [Rx Confirmed 04/22/25] blood sugar diagnostic (Accu-Chek Guide test strips) #100 strips 03/18/25 [Rx Confirmed 04/22/25] furosemide 80 mg tablet 80 mg PO BID 30 days #60 tabs 03/20/25 [Rx Confirmed 04/22/25] famotidine 20 mg tablet See Rx Instructions .Route .COMPLEX #180 tabs 04/13/25 [Rx Confirmed 04/22/25] amlodipine 10 mg tablet 10 mg PO DAILY 30 days #30 tabs 04/22/25 [Rx Confirmed 04/22/25] Allergy/Medication Comments: Please note that the home medication list may contain elements that are not accurate. This list of home medications will be updated during the hospital stay as more information becomes available. Exam Physical Exam Vital Signs: Temp Pulse Resp BP Pulse Ox O2 Del Method 97.9 F 62 20 151/70 H 96 Room Air 05/05/25 22:31 05/06/25 04:00 05/05/25 22:31 05/06/25 04:00 05/06/25 04:00 05/06/25 04:00 Narrative: GEN: Awake, alert, oriented x 3. Lungs: Clear to auscultation bilaterally, no wheezing, no crackles. Heart: Regular rate and rhythm, no murmurs, rubs, or gallops. Abdomen: Soft, normal bowel sounds, no rigidity, guarding, or acute peritoneal signs. Extremities: No swelling or cords in the calves bilaterally, no edema in the ankles bilaterally. Skin: No systemic rashes or lesions. Psychiatric: Calm. Conversant. Cooperative. Results - Hospitalist H&P Lab Results Labs: Laboratory Last Values Corrected WBC 4.7 X10E3/uL (4.1-10.5) 05/05/25 23:43 Uncorrected WBC Count 4.7 x10E3/uL (4.1-10.5) 05/05/25 23:43 RBC 4.16 x10E6/uL (3.90-5.60) 05/05/25 23:43 Hgb 12.0 g/dL (13.0-17.0) L 05/05/25 23:43 Hct 36.4 % (38.8-50.0) L 05/05/25 23:43 MCV 87.4 fl (83.5-101) 05/05/25 23:43 MCH 28.8 pg (27.5-35.2) 05/05/25 23:43 MCHC 33.0 g/dL (32.5-35.6) 05/05/25 23:43 RDW 19.6 % (12.0-14.8) H 05/05/25 23:43 Plt Count 142 x10E3/uL (150-450) L 05/05/25 23:43 MPV 8.6 fl (6.6-10.1) 05/05/25 23:43 Neut % (Auto) 68.8 % (.) 05/05/25 23:43 Lymph % (Auto) 17.1 % (.) 05/05/25 23:43 Winkler % (Auto) 6.9 % (.) 05/05/25 23:43 Eos % (Auto) 4.8 % (.) 05/05/25 23:43 Baso % (Auto) 2.4 % (.) 05/05/25 23:43 Nucleat RBC Rel Count 0.2 /100 WBC (0-0.5) 05/05/25 23:43 Neut # (Auto) 3.2 x10E3/uL (1.8-7.7) 05/05/25 23:43 Lymph # (Auto) 0.8 x10E3/uL (1.00-4.8) L 05/05/25 23:43 Winkler # (Auto) 0.3 x10E3/uL (0.0-0.8) 05/05/25 23:43 Eos # (Auto) 0.2 x10E3/uL (0.0-0.45) 05/05/25 23:43 Baso # (Auto) 0.1 x10E3/uL (0.0-0.2) 05/05/25 23:43 Monocyte Dist Width 17.15 % (0.00-20.00) 05/05/25 23:43 Sample Site Venous 05/06/25 00:03 VBG pH 7.47 (7.32-7.43) H 05/06/25 00:03 VBG pCO2 40.4 mmHg (38.0-50.0) 05/06/25 00:03 VBG pO2 68.0 mmHg (35.0-45.0) H 05/06/25 00:03 VBG HCO3 28.5 mmol/L (23.0-29.0) 05/06/25 00:03 VBG Total CO2 29.7 mmol/L (24.0-29.0) H 05/06/25 00:03 VBG O2 Saturation 93.6 % (73.0-76.0) H* 05/06/25 00:03 VBG O2 Content 7.4 mmol/L (6.6-9.7) 05/06/25 00:03 VBG Base Excess 4.4 mmol/L (-3.0-3.0) H 05/06/25 00:03 FiO2 21 % 05/06/25 00:03 Critical Value 05/06/25 00:03 PHA Creatinine Clear 26.42 05/05/25 23:43 Sodium 135 mmol/L (136-145) L 05/05/25 23:43 Potassium 3.5 mmol/L (3.5-5.1) 05/05/25 23:43 Chloride 94 mmol/L (98-107) L 05/05/25 23:43 Carbon Dioxide 29.3 mmol/L (21.0-31.0) 05/05/25 23:43 Anion Gap 15.2 mEq/L (6.0-15.0) H 05/05/25 23:43 BUN 18 mg/dL (7-25) 05/05/25 23:43 Creatinine 4.20 mg/dL (0.70-1.30) H 05/05/25 23:43 Est GFR (CKD-EPI) 17.436 mL/Min 05/05/25 23:43 Glucose 42 mg/dL (70-100) L* 05/05/25 23:43 POC Glucose 217 mg/dl 05/06/25 05:18 POC Glucose Comment Glu2: cleaned meter 05/06/25 05:18 POC Glucose Comment Will notify /tere 05/06/25 01:27 Calcium 9.9 mg/dL (8.6-10.3) 05/05/25 23:43 Total Bilirubin 0.7 mg/dl (0.3-1.0) 05/05/25 23:43 AST 15 U/L (13-39) 05/05/25 23:43 ALT 10 U/L (7-52) 05/05/25 23:43 Alkaline Phosphatase 60 U/L (34-104) 05/05/25 23:43 Total Protein 8.2 gm/dL (6.4-8.9) 05/05/25 23:43 Albumin 4.8 gm/dL (3.5-5.7) 05/05/25 23:43 Globulin 3.4 gm/dL 05/05/25 23:43 Albumin/Globulin Ratio 1.4 05/05/25 23:43 TSH 3rd Generation 2.93 uIU/mL (0.45-5.33) 05/05/25 23:43 ABG Interpretation ABG results: 05/06/25 00:03 VBG pH 7.47 H VBG pCO2 40.4 VBG pO2 68.0 H VBG HCO3 28.5 VBG Total CO2 29.7 H VBG O2 Saturation 93.6 H* VBG Base Excess 4.4 H Assessment & Plan Assessment/Plan (1) Hypoglycemia: (2) Type I diabetes mellitus with hypoglycemia: (3) ESRD (end stage renal disease): Plan Assessment: Severe and prolonged hypoglycemia. Diabetes mellitus type 1 with insulin requiring diabetes. End-stage renal disease. Future plans for a kidney transplant combined with a pancreas transplant. Discussion: I think that the patient's severe hypoglycemia is almost over. With his blood glucose now being 217I had the ER nurse turned his dextrose infusion down to 20mL/h. In about 2 hours he should be able to eat breakfast. I have ordered him to have regular breakfast. At that time the IV fluids can be stopped. His blood sugars did not bottom out again between breakfast and lunch then I think he will besuitable for discharge to home. I did student assistance counselor the patient that he will need to watch his blood glucoses very closely over the next couple days as they are likely to be more labile than normal after having them go this low and then receiving the multiple treatments to bring them back up. He expressed understanding and said that hewill be verycautious with the dosing of his long-acting and short acting insulin. IP vs OBS Justification Based on differential dx, clinical care plan, and risk of adverse events, if untreated, in my clinical judgement this patient requires an acute care setting as: OBSERVATION because of an expectation of an under 2 midnight stay. Estimated length of stay (# of days): 1 Documented By: Dwayne Little DO 0529 Signed By: 05/06/25 0536 [facility]08-14-2025 Evaluation note* Diagnosis Onset Date Resolution Status Admit Date Pain from arteriovenous fistula acut e April 01, 2025 10:44am [facility] Work Phone: 1([phone]) 847-261808-14-2025 Evaluation note* Diagnosis Onset Date Resolution Status Admit Date Pain from arteriovenous fistula acute April 01 10:44am ASHD (arteriosclerotic heart disease) acute April 22 025 10:32am Chronic bronchitis, mucopurulent acute April 22 025 10:32am Chronic heart failure with preserved ejection fraction (HFpEF) acute April 22 10:32am Dependence on renal dialysis acute April 22, 2025 10:32am ESRD (end stage renal disease) acute April 22, 2025 10:32am Nicotine addiction acute 2024 10:32am Primary hypertension acute Apr 10:32am Right shoulder pain acute 2024 10:32am Type 1 diabetes mellitus wit h hyperglycemia acute April 22 10:32am [facility] Work Phone: 1([phone]) 130-430008-14-2025 Evaluation note* Diagnosis Onset Date Resolution Status Admit Date Pain from arteriovenous fistula acute April 01 10:44am ASHD (arteriosclerotic heart disease) acute April 22 10:32am Chronic bronchitis, mucopurulent acute April 22 10:32am Chronic heart failure with preserved ejection fraction (HFpEF) acute April 22 10:32am Dependence on renal dialysis acute April 22, 2025 10:32am ESRD (end stage renal disease) acute April 22, 2025 10:32am Nicotine addiction acute 2024 10:32am Primary hypertension acute Apr 10:32am Right shoulder pain acute 2024 10:32am Type I diabetes mellitus wit h hypoglycemia acute April 22 10:32am ESRD (end stage renal disease) acute May 06, 2025 5:24am History of diabetes mellitus acute May 06, 2025 5:24am History of end stage renal disease acute May 06, 2025 5:24am Hypoglycemia acute May 062024 5:24am Type I diabetes mellitus wit h hypoglycemia acute May 06, 2025 5:24am [facility] Work Phone: [phone]) 638-265308-14-2025 Evaluation note* Diagnosis Onset Date Resolution Status Admit Date Pain from arteriovenous fistula acute April 01 10:44am ASHD (arteriosclerotic heart disease) acute April 22 10:32am Chronic bronchitis, mucopurulent acute April 22 10:32am Chronic heart failure with preserved ejection fraction (HFpEF) acute April 22 10:32am Dependence on renal dialysis acute April 22, 2025 10:32am ESRD (end stage renal disease) acute April 22, 2025 10:32am Nicotine addiction acute 2024 10:32am Primary hypertension acute Apr 10:32am Right shoulder pain acute 2024 10:32am Type I diabetes mellitus wit h hypoglycemia acute April 22 10:32am ESRD (end stage renal disease) acute May 06, 2025 5:24am History of diabetes mellitus acute May 06, 2025 5:24am History of end stage renal disease acute May 06, 2025 5:24am Hypoglycemia acute May 062024 5:24am Type I diabetes mellitus wit h hypoglycemia acute May 06, 2025 5:24am Hypertensive emergency acute Oc tob2024 8:59pm [facility] Work Phone: 1([phone]) 697-290908-14-2025 Evaluation note* Diagnosis Onset Date Resolution Status Admit Date Pain from arteriovenous fistula acute April 01 10:44am ASHD (arteriosclerotic heart disease) acute April 22 10:32am Chronic bronchitis, mucopurulent acute April 22 10:32am Chronic heart failure with preserved ejection fraction (HFpEF) acute April 22 10:32am Dependence on renal dialysis acute April 22, 2025 10:32am ESRD (end stage renal disease) acute April 22, 2025 10:32am Nicotine addiction acute 2024 10:32am Primary hypertension acute Apr 10:32am Right shoulder pain acute 2024 10:32am Type I diabetes mellitus wit h hypoglycemia acute April 22 10:32am ESRD (end stage renal disease) acute May 06, 2025 5:24am History of diabetes mellitus acute May 06, 2025 5:24am History of end stage renal disease acute May 06, 2025 5:24am Hypoglycemia acute May 062024 5:24am Type I diabetes mellitus wit h hypoglycemia acute May 06, 2025 5:24am Atypical chest pain acute Octob er 2024 8:59pm H/O heart artery stent 2023 acute Oc tober 2024 8:59pm History of end stage renal disease acute May 31 8:59pm Hypertensive emergency acute Oc tober 2024 8:59pm Hypertensive urgency acute Octo mike 2024 8:59pm Mitral regurgitation acute Octo mike 2024 8:59pm Type I diabetes mellitus wit h hypoglycemia acute May 31 8:59pm [facility] Work Phone: [phone]) 894-463508-14-2025 Radiology Diagnostic study [facility] [address] [place] [address] Ultrasound Report Signed Patient: Yoel Werner MR#: [id number] : 1985 Acct:[id number] Age/Sex: 40 / M ADM Date: 5 Loc: [facility] Room: Type: [facility] Attending Dr: Romain Mendoza MD Ordering Provider: [...] Mendoza MD,FACS,FSVS 04/01/2025 12:35 PM Dictation Location: [id number] Tech: Leslie Marinelli Transcribed By: [facility] 04/01/25 1235 Dictated By: Romain Mendoza MD 04/01/25 1234 Signed By: 04/01/25 1235 [facility] Work Phone: 1([phone]) 702-950506-05-2025 Procedure [place] [id number] Cardiac Catheterization Note Signed Patient: Yoel Werner MR#: [id number] : 1985 Acct:[id number] Age/Sex: 39 / M Adm Date: 06/05/2 5 Loc: Room: Type: [facility] Attending Dr: Denilson Gomez DO Copies to: DO Denilson Leblanc DO~ Cardiac Catheterization (Left) DATE/PROVIDER 01/21/2025 Denilson Gomez DO INDICATION 1. Recurrent shortness of breath/anginal equivalent 2. End-stage renal disease on dialytic therapy 3. ASHD with remote MD and revascularizations of the proximal/mid LAD and RCA with normalized LV function 4. Severe mitral regurgitation PRE PROCEDURE Frailty Scale: Managing Well ASA Classification: 4 Mallampati Score: Class I POST PROCEDURE Cardiology Post-Op Diagnosis: Other (Severe proximal LAD in-stent restenosis, mild to moderate proximal circumflex disease, widely patent RCA stent and minimal RCA disease, low normal LV function with 2-3+ mitral regurgitation) PROCEDURE PROCEDURE MEDICATIONS: Conscious sedation with Versed and fentanyl; Angiomax bolus and infusion, intravenous hydralazine, clopidogrel loading dose Approach: Femoral - Rt 1. Left heart catheterization 2. Selective left coronary angiography with interpretation 3. IFR assessment proximal LAD with Omni wire and [employer] imaging system 4. PCI proximal LAD with 3.5 x 18 mm Jefferson stent with repeat IFR assessment LAD PROCEDURE DETAILS Failed right radial attempt?unable to wire radial artery x 2 Utilizing the right femoral approach with a single arterial puncture technique a4 Gibraltarian sheath wasinserted the right femoral artery over guidewire without anycomplications next preformed JL4, JR4 and angled pigtail catheters were utilized to selectively engage and image left and right coronary arteries, and the left ventricle all with imaging, interpretation, pressure measurements, coronary, and left ventriculography, Next, the 4 Gibraltarian sheath was exchanged for 6 Gibraltarian sheath, 6 Gibraltarian JL 4 guidecatheter was advanced to the left coronary, selective left coronary angiography with interpretation followed by IFR assessment of proximal LAD with Omni wire and [employer] imaging system, followed by PCI proximal LAD with 3.5 x18 mm Valentin stent, followed by post stent dilatation with 3.5 x 12 mm noncompliantEuphora balloon; and repeat IFR assessment post PCI HEMOSTASIS XO seal SUMMARY OF FINDINGS CCS Classification: CCS [id number] w/ mild exertion Dominance: Right Left Main %: 0 LAD-Prox % Stenosis: 80 LAD-Prox: Tubular, eccentric, in-stent restenosis proximal LAD with MARILIA-3 flow the remainder of the proximal?mid LAD stent widely patent, mid to distal LAD minimaldisease LAD- Mid- % Stenosis: 0 LAD-Distal- % Stenosis: 0 Diag 1st - % Stenosis: 0 Diag 2nd - % Stenosis: 50 CIRC- Prox % Stenosis: 50 CIRC- Prox: Diffuse, tubular 50% proximal circumflex disease CIRC- Mid - % Stenosis: 25 CIRC- Distal- & Stenosis: 0 OM-1 -% Stenosis: 20 RCA -% Stenosis: 10 RCA: Large dominant RCA with minimal disease and widely patent stent in the proximal/mid third PDA-RT -% Stenosis: 0 PLV-RT -% Stenosis: 0 LEFT VENTRICLE EF %: 50 Low normal LV function with ejection fraction estimated to be 45 to 50%, LVEDP 15 mmHg, 2-3+ mitralregurgitation VALVE-AORTIC Aortic Valve Disease: No VALVE-MITRAL Mitral Valve Disease: Yes Mitral insufficiency grade: 3 IMPRESSION 1. Severe proximal LAD in-stent restenosis 2. Low normal LV function 3. 2-3+ mitral digitation angiographically RECOMMENDATIONS iFR assessment LAD with possible PCI Reassess mitral regurgitation after revascularization later Documented By: Denilson Gomez DO 01/21/25 1529 Signed By: 01/21/25 1534 [facility]06-05-2025 [place] [address] Cardiology IVUS/FFR/IFR Note Signed Patient: Yoel Werner MR#: [id number] : 1985 Acct:[id number] Age/Sex: 39 / M Adm Date: 5 Loc: Room: Type: [facility] Attending Dr: Denilson Gomez DO Copies to: DO Denilson Leblanc DO~ Cardiology IVUS/FFR/IFR Note PROCEDURE NOTE DATE OF PROCEDURE: 01/21/25 PROCEDURE PERFORMED BY: Denilson Gomez INDICATION FOR PROCEDURE: Assess LAD in-stent restenosis PREOPERATIVE DIAGNOSIS: Proximal LAD in-stent restenosis ASA CLASSIFICATION: 4 MALLAMPATI SCORE: Class I PROCEDURE PERFORMED: IFR PROCEDURE DETAILS: See details of IFR assessment of LAD and interventional report COMPLICATIONS: None PATIENT TOLERATED PROCEDURE: well and no complications DISPOSITION: Discharge to home later this evening Documented By: Denilson Gomez DO 01/21/25 1528 Signed By: 01/21/25 1529 [facility]06-05-2025 [place] [address] Cardiology PCI Note Signed Patient: Yoel Werner MR#: [id number] : 1985 Acct:[id number] Age/Sex: 39 / M Adm Date: 5 Loc: Room: Type: [facility] Attending Dr: Denilson Gomez DO Copies to: DO Denilson Leblanc DO~ Cardiac PCI Note DATE/PROVIDER 01/21/2025 Denilson Gomez DO INDICATION 1. Recurrent shortness of breath/angina pectoris 2. Severe in-stent restenosis proximal LAD 3. Moderate mitral regurgitation 4. End-stage renal disease 5. Accelerated hypertension PRE PROCEDURE Frailty Scale: Managing Well Syntax Score-Document for all PCI's that are NOT STEMI/N-STEMI: Intermediate (>22 and ASA: 4 Mallampati Score: Class I POST PROCEDURE Cardiology Post-Op Diagnosis: Other (Successful IFR guided PCI proximal LAD with3.5 x 18 mm Jefferson stent for ISR) FINDINGS 1st vessel: Lesion Vessel Segment: Proximal LAD Culprit Lesion?: Yes Pre-stenosis %: 80 Post stenosis %: 0 Lesion length (mm): 12 Bifurcation lesion?: Yes Pre MARILIA flow: III Post MARILIA flow: III Lesion risk: Non-high Chronic total occlusion?: No FFR Ratio if done: 0.66 Thrombus present?: No AUC SCORE: 8 Lesion complication: None Drug Eluting Stent: 3.5 x 18 mm Jefferson Narrative: See cardiac catheterization narrative for complete dissertation and left coronary angiography with interpretation, guide catheter selection, pharmacology, equipment Summary: The proximal portion of the LAD located in the proximal portion of the 3 mm stent that wasplaced for original anterior MD several years ago, there wassevere, eccentric, 80% in-stent restenosis with MARILIA-3 flow and a reference vessel 3.5 to 3.8 mm in length of 12 mm bifurcating with a small marginal branch. The ACC/AHA criteria for lesion is type B2. Utilizing a JL 4 guide catheter a 0.014 Omni wire was advanced across the lesion it was zeroed and normalized in the body, and IFR assessment was performed x 3 at 0.66 and 0.68 consistent with severe flow-limiting lesion. The wire was maintained as the working wire, the lesion was then directly stented with a 3.5 x 18 mm Jefferson stentat 12 melida, and then postdilated with a 3.5 x 12 mm Euphora balloon x 2 inflations at 14 melida with a residual stenosis of 0% MARILIA-3 flow. Repeat IFR measurement at the end of the procedure revealed normalization of his IFR at 0.96?0.98 consistent with normalized physiology there is no other disease in theLAD system. Patient tolerated procedure well, will be continued on his dual antiplatelet therapy, reassessment of his mitral regurgitation with echo will be performed atlater date now that his LAD is revascularized Documented By: Denilson Gomez DO 01/21/25 1524 Signed By: 01/21/25 1528 [facility]05-27-2025 Evaluation note* Diagnosis Onset Date Resolution Status [...] hyperglycemia acute January 12, 2025 2 :40pm [facility] Work Phone: 1(749) 846-810605-27-2025 Evaluation note* Diagnosis Onset Date Resolution Status [...] fistula acut e April 01, 2025 10:44am [facility] Work Phone: 1(331) 929-237305-06-2025 NotePatient was recently made inactive due to [...] done. He will follow with his primary finance admin Dr. Gomez to undergo the procedure and what ever he needs for management of his mitral regurgitation. Whenever all is done Dr. Lou advised that the patient would need to be seen for a follow-up likely with a echocardiogram to give a final recommendation regarding his candidacy for renal and pancreas transplant.[facility]05-06-2025 NotePatient: Yoel Werner Procedure Information Date/Time: 12/22/24 1330 Procedures: Coronary angiography - PC APPROVED 12/02-03/01 Right heart cath Location: [facility] [employer] 3 / [facility] (Cath) Providers: Stephen Lou MD [...] who consented to blood products. [facility] History of Present illness Narrative* David Berg DPM - 12/10/2024 10:30 AM EDT Patient: Yoel [...] Patient has longstanding history and history of MD x2 with cardiac stents as well as multiple myeloma history. Patient also on dialysis with end-stage renal disease Patient has a left HAV deformity Allergies: No Known Allergies Past Medical History: Past Medical History: Diagnosis Date Cancer (CMS/HCC) CHF (congestive heart failure) ([facility]/HCC) Diabetes ([facility]/HCC) End stage renal disease ([facility]/HCC) Heart attack ([facility]/HCC) Hypertension ([facility]/HCC) MGUS (monoclonal gammopathy of unknown significance) Renal [...] Rfl: 2 ergocalciferol (Vitamin D2) 1.25 MG (68004 UT) capsule, Take 1 capsule by mouth [...] NEEDED FOR NAUSEA/ VOMITING, Disp: , Rfl: Hezdkfxxdod-Sgfolzgl-Adzrbvimr 1-0.5-0.075 % solution, Administer 1 drop into [...] Resource Strain: Low Risk (03/14/2024) Received from [facility] Overall Financial Resource Strain (CARDIA) Difficulty of Paying Living Expenses: Not hard at all Food Insecurity: No Food Insecurity (03/14/2024) Received from [facility] Hunger Vital Sign Worried About Running Out of Food in the Last Year: Never true Ran Out of Food in the Last Year: Never true Transportation Needs: No Transportation Needs (03/14/2024) Received from [facility] PRAPARE - Transportation Lack of Transportation (Medical): No Lack of Transportation (Non-Medical): No Physical Activity: Not on file Stress: Not on file Social Connections: Not on file Intimate Partner Violence: Unknown (11/26/2023) Received from [facility] Safety & Environment Fear of Current or Ex-Partner: Not on file Emotionally Abused: Not on file Physically Abused: Not on file Sexually Abused: Not on file Physically or Sexually Abused: Not on file Housing Stability: Not on file ROS: General: denies fever, chills, fatigue, malaise Cardiovascular: denies CP, palpitations, irregular rhythms. Positive history of cardiac stents in MD and on blood thinners OBJECTIVE LE EXAM: DERM: Elongated thick yellow crumbly nails digits 1 through 10. Diminished hair growth with thin shiny atrophic skin bilaterally. Rubor to dorsal medial eminence of the left 1st metatarsal VASC: Positive DP and positive PT pedal pulses NEURO: 5.07 Haslet Alecia monofilament test positive to digits and [...] gear. David Berg DPM documented in this encounterFreeman Health [id number] History of Present illness Narrative* Brianna Gomez, - 11/24/2024 11:20 AM EDT Chief Complaint [...] hold presently, was referred to cardiology at [facility] for valvular evaluation and underwent transesophageal echo; I suspect for mitral regurgitation which was previously considered mild to moderate. Most recent echo from [facility] this past summer during his brief hospitalization and even heart catheterization at that time revealed moderate mitral regurgitation with normal left ventricular function at that time heart catheterization revealed widely patent coronary stents x 3 vessels. We have no results from [facility] or clinical notes at the moment; no [...] He has a history of large anterior MD with severe three-vessel disease and eventually underwent [...] issues per the patient. Recommendations: Will obtain [facility] data and imaging and notes, [facility] myself, follow- up otherwise on same therapies and 6 months. Clinically there is no need for repeat heart catheterization as he just had one in the at [facility], however if structural heart team requires 1 [...] Follow Up In Cardiology 2. History of MD (myocardial infarction) 3. Status post insertion of drug eluting coronary artery stent 4. Aortic valve disorder 5. ESRD (end stage renal disease) on dialysis (Multi) 6. Vapes nicotine containing substance Scribe Attestation By signing my name below, ITamara LPN, Scribe attest that this documentation has [...] exam, discussion and plan. documented [facility] Work Phone: 1(148) 368-905904-08-2025 Instructions* Patient Instructions* Mamta Kaplan LPN - [...] time of your visit. documented in this [facility]Lima City Hospital Work Phone: 1(251) 515-727604-03-2025 NoteUT Cardiology - [facility] Subjective Yoel Werner is a 39 y.o. year old male patient being seen for followup of mitral regurgitation. Patient Active Problem List Diagnosis Acute hypoxic respiratory failure (CMS/HCC) Acute metabolic encephalopathy Anasarca Anemia in chronic kidney disease Coronary artery disease involving tununak coronary artery of tununak heart without angina pectoris AV fistula stenosis BMI 21.0-21.9, adult Chest pain CHF (congestive heart failure) ([facility]/HCC) Chronic bronchitis, mucopurulent ([facility]/HCC) Chronic venous insufficiency Cigarette nicotine dependence without complication Current every day smoker Diabetes mellitus ([facility]/HCC) Encephalopathy Erectile dysfunction due to arterial insufficiency End stage renal disease ([facility]) Hypertension, essential EBENEZER (generalized anxiety disorder) HCAP (healthcare-associated pneumonia) History of MD (myocardial infarction) Hyperkalemia Hyperlipidemia Hypertensive emergency Hypoxemia Ischemic cardiomyopathy MGUS (monoclonal gammopathy of unknown significance) Mild episode of recurrent major depressive disorder Monoclonal (M) protein disease, multiple 'M' protein Nicotine addiction NSTEMI (non-ST elevated myocardial infarction) ([facility]) Peyronie's disease Secondary hyperparathyroidism Status post insertion of drug eluting coronary artery stent Hypoglycemia unawareness associated with type 2 diabetes mellitus ([facility]) GERD (gastroesophageal reflux disease) Diabetic retinopathy ([facility]) COVID-19 Pre-transplant evaluation for kidney and pancreas [...] renal and pancreas transplant, referred by Dr. hCarles. He is not on the renal transplant [...] present. Pulmonary: Effort: Pulm (more content not included)...[facility] 11-02-2024 Consult note Author Bryce Coy [facility] Note Date/Time November 02, 2024 12: 28pm [facility] [address] [place] [address] Nephrology Consult Note Signed Patient: Yoel Werner MR#: [id number] : 1985 Acct:[id number] Age/Sex: 39 / M Adm Date: 5 Loc: Room: [address] [place] [address] Type: ADM INOo Attending Dr: Law Cano MD Copies to: DO Bryce Leblanc MD Marwan Wassouf, MD~ Providers Consult Date: 11/02/24 Requesting Provider: Law Cano MD Primary Care Provider: Eusebio Olivares DO [facility] Reason for Consult: Management of ESRD and dialysis during hospital stay History of Present Illness: Mr. Werner is a 39-year-old white male with history of ESRD related to DM2 ondialysis on MWF schedule at [facility]. Other medical problems include CAD s/p MD s/p stents, HFpEF and recurrent episodes of hypoglycemia. Patient currently has functioning left arm AV fistula. He is undergoing evaluation for pancreas and kidney transplant at [facility]. Patient presented to theER on 11/01 with [...] negative unless noted below or in HPI [facility] Medical History Contusion of right lower extremity [...] Confirmed 11/01/24] 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 meter,continuous (FreeStyle Ramy 3 De [place]re) #1 ea 03/19/24 [Rx Confirmed 11/01/24] omeprazole [...] 5 Mg Tablet) 5 mg PO DAILY [facility] Stop: 11/02/25 08:59 Last Admin: 11/02/24 08:52 Dose: 5 mg Aspirin (Aspirin 81 Mg Tab.Chew) 81 mg PO QAM [facility] Stop: 11/02/25 08:59 Last Admin: 11/02/24 08:52 Dose: 81 mg Atorvastatin Calcium (Atorvastatin 80 Mg Tablet) 80 mg PO QAM [facility] Stop: 11/02/25 08:59 Last Admin: 11/02/24 08:52 Dose: 80 mg Calcium Acetate (Calcium Acetate 667 Mg Capsule) 1,334 mg PO TID RACHELL Stop: 11/02/25 08:59 Last Admin: 11/02/24 08:52 Dose: 1,334 mg Carvedilol (Carvedilol 25 Mg Tablet) 25 mg PO BID.WITH.MEALS [facility] Stop: 11/02/25 07:59 Last Admin: 11/02/24 08:53 Dose: 25 mg Clopidogrel Bisulfate (Clopidogrel Bisulfate 75 Mg Tablet) 75 mg PO DAILY [facility] Stop: 11/02/25 08:59 Last Admin: 11/02/24 08:52 Dose: 75 mg Dextrose (Dextrose 50% In Water 25 Gm/50 Ml Syringe) 0 gm IV-PUSH PRN PRN PRN Reason: Hypoglycemia Stop: 11/01/25 23:45 Epoetin Alexus (Epoetin Alexus (Esrd Use) 20,000 Unit/Ml Vial) 14,000 unit IV-PUSH MoWeFr@0900 [facility]; Protocol Stop: 11/02/25 08:59 Last Admin: 11/02/24 09:20 Dose: 14,000 unit Famotidine (Famotidine 20 Mg Tablet) 20 mg PO Q48H [facility] Stop: 11/03/25 20:59 Ferric Sodium Gluconate Complex (Sodium Ferric Gluconat/Sucrose 62.5 Mg/5 Ml Vial) 125 mg IV-PUSH We@0815 [facility] Stop: 11/04/25 08:14 Furosemide (Furosemide 80 Mg Tablet) 80 mg PO DAILY [facility] Stop: 11/02/25 08:59 Last Admin: 11/02/24 08:52 [...] 50 Mg Tablet) 100 mg PO BID [facility] Stop: 11/02/25 08:59 Last Admin: 11/02/24 08:52 Dose: 100 mg Hydroxyzine Pamoate (Hydroxyzine Pamoate 25 Mg Capsule) 25 mg PO QPM [facility] Stop: 11/02/25 20:59 Sodium Chloride (0.9% Sodium Chloride 1,000 Ml) 1,000 mls @ 0 mls/hr MISCELLANE.Q0M PRN PRN Reason: Dialysis Stop: 11/02/25 08:13 Last Infusion: 11/02/24 09:21 Dose: Infused Insulin Aspart (Insulin Aspart 300 Units/3 Ml) 0 units SUBCUT TID.WM.HS [facility]; Protocol Stop: 11/02/25 07:59 Last Admin: 11/02/24 10:29 Dose: Not Given Insulin Glargine (Insulin Glargine 300 Units/3 Ml Insuln.Pen) 20 units SUBCUT QHS [facility] Stop: 11/02/25 21:59 Isosorbide Mononitrate (Isosorbide Mononitrate 24hr Er 60 Mg Tab.Er.24h) 60 mg PO BID [facility] Stop: 11/02/25 08:59 Last Admin: 11/02/24 08:52 Dose: 60 mg Ondansetron HCl (Ondansetron 4 Mg/2 Ml Vial) 4 mg IV-PUSH Q8H PRN PRN Reason: Nausea And Vomiting Stop: 11/01/25 23:31 Pantoprazole Sodium (Pantoprazole 40 Mg Tablet.Dr) 40 mg PO DAILY [facility] Stop: 11/02/25 08:59 Last Admin: 11/02/24 08:52 Dose: 40 mg Paricalcitol (Paricalcitol 10 Mcg/2 Ml Vial) 5 mcg IV-PUSH MoWeFr@0815 [facility] Stop: 11/02/25 08:14 Last Admin: 11/02/24 09:18 Dose: 5 mcg Sertraline HCl (Sertraline 100 Mg Tablet) 100 mg PO DAILY [facility] Stop: 11/02/25 08:59 Last Admin: 11/02/24 08:52 [...] Appearance Clear Urine pH 7.0 Ur Specific Crossett 1.010 Urine Protein 200 H Urine Glucose [...] Mart Jr., D.O.11/02/2024 8:47 AM Dictation Location: [place] [address] Chest X-Ray 11/01/24 20:54 IMPRESSION: NO ACUTE FINDINGS Impression dictated by: Yoel Mart Jr., D.O.11/02/2024 8:28 AM Dictation Location: [place] [address] 11/01/24 20:54 IMPRESSION: NO ACUTE INTRACRANIAL ABNORMALITY. Impression dictated by: Yoel Mart Jr., D.O.11/02/2024 8:28 AM Dictation Location: [place] [address] Any impression(s) listed above is documentation that [...] disease on hemodialysis in February 2023 at [facility] on MWF schedule (2) Acute [...] issues. Documented By: Bryce Coy MD 11/02/24 1206 Signed By: <Electronically signed by MD Bryce Coy> 11/02/24 5504 [facility] Work Phone: 1(292) 327-656003-17-2025 [place] [id number] Nephrology Consult Note Signed Patient: Yoel Werner MR#: [id number] : 1985 Acct:[id number] Age/Sex: 39 / M Adm Date: 5 Loc: 3T Room: [address] [place] [address] Type: ADM INOo Attending Dr: Law Cano MD Copies to: DO Bryce Leblanc MD Marwan Wassouf, MD~ Providers Consult Date: 11/02/24 Requesting Provider: Law Cano MD Primary Care Provider: Eusebio Olivares DO HPI Reason for Consult: Management of ESRD and dialysis during hospital stay History of Present Illness: Mr. Werner is a 39-year-old white male with history of ESRD related to DM2 ondialysis on MWF schedule at [facility]. Other medical problems include CAD s/p MD s/p stents, HFpEF and recurrent episodes of hypoglycemia. Patient currently has functioning left arm AV fistula. He is undergoing evaluation for pancreas and kidney transplant at [facility]. Patient presented to the[facility] on 11/01 with [...] negative unless noted below or in HPI [facility] Medical History Contusion of right lower extremity [...] Confirmed 11/01/24] 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 meter,continuous (FreeStyle Ramy 3 De [place]re) #1 ea 03/19/24 [Rx Confirmed 11/01/24] omeprazole [...] 5 Mg Tablet) 5 mg PO DAILY [facility] Stop: 11/02/25 08:59 Last Admin: 11/02/24 08:52 Dose: 5 mg Aspirin (Aspirin 81 Mg Tab.Chew) 81 mg PO QAM [facility] Stop: 11/02/25 08:59 Last Admin: 11/02/24 08:52 Dose: 81 mg Atorvastatin Calcium (Atorvastatin 80 Mg Tablet) 80 mg PO QAM [facility] Stop: 11/02/25 08:59 Last Admin: 11/02/24 08:52 Dose: 80 mg Calcium Acetate (Calcium Acetate 667 Mg Capsule) 1,334 mg PO TID [facility] Stop: 11/02/25 08:59 Last Admin: 11/02/24 08:52 Dose: 1,334 mg Carvedilol (Carvedilol 25 Mg Tablet) 25 mg PO BID.WITH.MEALS [facility] Stop: 11/02/25 07:59 Last Admin: 11/02/24 08:53 Dose: 25 mg Clopidogrel Bisulfate (Clopidogrel Bisulfate 75 Mg Tablet) 75 mg PO DAILY [facility] Stop: 11/02/25 08:59 Last Admin: 11/02/24 08:52 Dose: 75 mg Dextrose (Dextrose 50% In Water 25 Gm/50 Ml Syringe) 0 gm IV-PUSH PRN PRN PRN Reason: Hypoglycemia Stop: 11/01/25 23:45 Epoetin Alexus (Epoetin Alexus (Esrd Use) 20,000 Unit/Ml Vial) 14,000 unit IV-PUSH MoWeFr@0900 [facility]; Protocol Stop: 11/02/25 08:59 Last Admin: 11/02/24 09:20 Dose: 14,000 unit Famotidine (Famotidine 20 Mg Tablet) 20 mg PO Q48H [facility] Stop: 11/03/25 20:59 Ferric Sodium Gluconate Complex (Sodium Ferric Gluconat/Sucrose 62.5 Mg/5 Ml Vial) 125 mg IV-PUSH We@0815 [facility] Stop: 11/04/25 08:14 Furosemide (Furosemide 80 Mg Tablet) 80 mg PO DAILY [facility] Stop: 11/02/25 08:59 Last Admin: 11/02/24 08:52 [...] 50 Mg Tablet) 100 mg PO BID [facility] Stop: 11/02/25 08:59 Last Admin: 11/02/24 08:52 Dose: 100 mg Hydroxyzine Pamoate (Hydroxyzine Pamoate 25 Mg Capsule) 25 mg PO QPM [facility] Stop: 11/02/25 20:59 Sodium Chloride (0.9% Sodium Chloride 1,000 Ml) 1,000 mls @ 0 mls/hr MISCELLANE.Q0M PRN PRN Reason: Dialysis Stop: 11/02/25 08:13 Last Infusion: 11/02/24 09:21 Dose: Infused Insulin Aspart (Insulin Aspart 300 Units/3 Ml) 0 units SUBCUT TID.WM.[facility]; Protocol Stop: 11/02/25 07:59 Last Admin: 11/02/24 10:29 Dose: Not Given Insulin Glargine (Insulin Glargine 300 Units/3 Ml Insuln.Pen) 20 units SUBCUT QHS [facility] Stop: 11/02/25 21:59 Isosorbide Mononitrate (Isosorbide Mononitrate 24hr Er 60 Mg Tab.Er.24h) 60 mg PO BID [facility] Stop: 11/02/25 08:59 Last Admin: 11/02/24 08:52 Dose: 60 mg Ondansetron HCl (Ondansetron 4 Mg/2 Ml Vial) 4 mg IV-PUSH Q8H PRN PRN Reason: Nausea And Vomiting Stop: 11/01/25 23:31 Pantoprazole Sodium (Pantoprazole 40 Mg Tablet.Dr) 40 mg PO DAILY [facility] Stop: 11/02/25 08:59 Last Admin: 11/02/24 08:52 Dose: 40 mg Paricalcitol (Paricalcitol 10 Mcg/2 Ml Vial) 5 mcg IV-PUSH MoWeFr@0815 [facility] Stop: 11/02/25 08:14 Last Admin: 11/02/24 09:18 Dose: 5 mcg Sertraline HCl (Sertraline 100 Mg Tablet) 100 mg PO DAILY [facility] Stop: 11/02/25 08:59 Last Admin: 11/02/24 08:52 [...] Appearance Clear Urine pH 7.0 Ur Specific Crossett 1.010 Urine Protein 200 H Urine Glucose [...] Mart Jr., D.O.11/02/2024 8:47 AM Dictation Location: [place] [address] Chest X-Ray 11/01/24 20:54 IMPRESSION: NO ACUTE FINDINGS Impression dictated by: Yoel Mart Jr., D.O.11/02/2024 8:28 AM Dictation Location: [place] [address] 11/01/24 20:54 IMPRESSION: NO ACUTE INTRACRANIAL ABNORMALITY. Impression dictated by: Yoel Mart Jr., D.O.11/02/2024 8:28 AM Dictation Location: [place] [address] Any impression(s) listed above is documentation that was entered by the reading physician into a diagnostic report(s) for Yoel Wernre. I have reviewed the report(s) and am [...] disease on hemodialysis in February 2023 at [facility] unit on MWF schedule (2) Acute [...] MD 11/02/24 1202 Signed By: 11/02/24 1228 [facility]03-17-2025 Radiology Diagnostic study note [facility] [place] [address] [place] [address] Scan Report Signed Patient: Yoel Werner MR#: [id number] : 1985 Acct:[id number] Age/Sex: 39 / M ADM Date: 5 Loc: 3T Room: [address] [place] [address] Type: ADM INOo Attending Dr: Law Cano [...] anasarca. Impression dictated by: Yoel Mart Jr., D.OEsa11/02/2024 8:47 AM Dictation Location: [place] [address] Transcribed By: [facility] 11/02/2447 Dictated By: Yoel Mart Jr, DO 11/02/2428 Signed By: 11/02/24 0847 [facility]03-17-2025 Radiology Diagnostic study note [facility] [place] [address] [place] [address] Scan Report Signed Patient: Yoel Werner MR#: [id number] : 1985 Acct:[id number] Age/Sex: 39 / M ADM Date: 5 Loc: 3T Room: [address] [place] [address] Type: ADM INOo Attending Dr: Law Cano [...] ABNORMALITY. Impression dictated by: Yoel Mart Jr., D.OEsa11/02/2024 8:28 AM Dictation Location: [place] [address] Transcribed By: [facility] 11/02/24827 Dictated By: Yoel Mart Jr, DO 11/02/24 0827 Signed By: 11/02/24 0828 [facility]03-17-2025 History and physical note Author Judd Jacobs [facility] Note Date/Time November 01, 2024 11: 46pm [facility] [address] [place] [address] Hospitalist H&P Signed Patient: Yoel Werner MR#: [id number] : 1985 Acct:[id number] Age/Sex: 39 / M Adm Date: 5 Loc: 3T Room: [address] [place] [address] Type: ADM INOo Attending Dr: Judd Jacobs [...] anithypertensive medications VTE prophyalxis- SCDs FULL CODE [facility] Medical History Contusion of right lower extremity [...] Confirmed 11/01/24] 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 meter,continuous (FreeStyle Ramy 3 De Pere) #1 ea 03/19/24 [Rx Confirmed 11/01/24] omeprazole [...] 11/01/24 20:49 MPV 7.3 fl (6.6-10.1) 11/01/24 20: Neut % (Auto) 72.4 % (.) 11/01/24 20:49 Lymph % (Auto) 13.5 % (.) 11/01/24: Winkler % (Auto) 6.3 % (.) 11/01/24: Eos % (Auto) 5.7 % (.) 11/01/24: Baso % (Auto) 2.1 % (.) 11/01/24:49 Nucleat RBC Rel Count 0.0 /100 WBC (0-0.5) 11/01/24 20:49 Neut # (Auto) 4.3 x10E3/uL (1.8-7.7) 11/01/24 20:49 Lymph # (Auto) 0.8 x10E3/uL (1.00-4.8) L 11/01/24 20:49 Winkler # (Auto) 0.4 x10E3/uL (0.0-0.8) 11/01/24 20:49 [...] pH 7.0 (5.0-9.0) 11/01/24 21:56 Ur Specific Crossett 1.010 (1.001-1.030) 11/01/24 21:56 Urine Protein 200 [...] 1 Documented By: Judd Jacobs MD 11/01/24 7498 Signed By: <Electronically signed by Judd Jacobs MD> 11/01/24 2347 [facility] Work Phone: 1(986) 822-968903-17-2025 Evaluation note* Diagnosis Onset Date Resolution Status Admit Date ESRD (end stage renal disease) acute November 01, 2024 10:56pm T wave inversion in EKG acute M 2024 10:56pm Uncontrolled hypertension acute November 01, [...] h hyperglycemia acute January 12, 2025 2:40pm [facility] Work Phone: 1(330) 758-655703-17-2025 Evaluation note* Diagnosis Onset Date Resolution Status [...] h hyperglycemia acute January 12, 2025 2:40pm [facility] Work Phone: 1([phone] 530-710103-16-2025 [place] [address] Hospitalist H&P Signed Patient: Yoel Werner MR#: [id number] : 1985 Acct:[id number] Age/Sex: 39 / M Adm Date: 5 Loc: Room: [address] [place] [address] Type: ADM INOo Attending Dr: Judd Jacobs [...] anithypertensive medications VTE prophyalxis- SCDs FULL CODE [facility] Medical History Contusion of right lower extremity [...] Confirmed 11/01/24] 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 meter,continuous (FreeStyle Ramy 3 De Pere) #1 ea 03/19/24 [Rx Confirmed 11/01/24] omeprazole [...] % (Auto) 13.5 % (.) 11/01/24 20:49 Winkler % (Auto) 6.3 % (.) 11/01/24 20:49 Eos % (Auto) 5.7 % (.) 11/01/24 20:49 Baso % (Auto) 2.1 % (.) 11/01/24 20:49 Nucleat RBC Rel Count 0.0 /100 WBC (0-0.5) 11/01/24 20:49 Neut # (Auto) 4.3 x10E3/uL (1.8-7.7) 11/01/24 20:49 Lymph # (Auto) 0.8 x10E3/uL (1.00-4.8) L 11/01/24 20:49 Winkler # (Auto) 0.4 x10E3/uL (0.0-0.8) 11/01/24 20:49 [...] pH 7.0 (5.0-9.0) 11/01/24 21:56 Ur Specific Crossett 1.010 (1.001-1.030) 11/01/24 21:56 Urine Protein 200 [...] 1 Documented By: Judd Jacobs MD 11/01/24 Signed By: 11/01/24 2346 [facility]03-11-2025 Note Attestation signed by Godwin Ortiz, [...] and discussed the session activities with the psychology intern, and reviewed and updated the medical record. I confirm the psychology intern's documentation. Please note there may be additional personal documentation from me. Department of Psychiatry Psychological Evaluation for Pre-Transplant - Kidney and Pancreas Time In: 10:07 Time Out: 11:07 Encounter Type: Off-Site Video at Remote Location Patient Name: Yoel Werner MRN / CSN: [id number] Date of / Age: 7 1985 / 39 y.o. / male Encounter Date: 10/27/24 Diagnosis: Diagnoses of Nicotine dependence, cigarettes, in remission, History of posttraumatic stress disorder (PTSD), History of anxiety, and Hx of major depression were pertinent to this visit. Care Team Encounter Provider: Maris Sinha Referring Physician (if known): No ref. 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 , male with a pertinent history of ESRD secondary to T1DM, who was referred by RAYMOND CABRERA) for psychosocial presurgical evaluation to assess candidacy [...] with the patient at his home in [place], [place] and the clinician at [facility] Department of Psychiatry. Relevant Medical History Per medical chart and patient report, patient was last seen by [facility] transplant provider, Dr. Cardenas, on 09/08/2024. Yoel Werner's medical history is significant for ESRD; T1DM with chronic kidney disease on chronic dialysis. Medical History Medical Diagnoses Patient Active Problem List Diagnosis Acute hypoxic respiratory failure (CMS/HCC) Acute metabolic encephalopathy Anasarca Anemia in chronic kidney disease Coronary artery disease involving tununak coronary artery of tununak heart without angina pectoris AV fistula stenosis BMI 21.0-21.9, adult Chest pain CHF (congestive heart failure) ([facility]/HCC) Chronic bronchitis, mucopurulent ([facility]) Chronic venous insufficiency Cigarette nicotine dependence without complication Current every day smoker Diabetes mellitus ([facility]) Encephalopathy Erectile dysfunction due to arterial insufficiency End stage renal disease ([facility]) Hypertension, essential EBENEZER (generalized anxiety disorder) HCAP (healthcare-associated pneumonia) History of MD (myocardial infarction) Hyperkalemia Hyperlipidemia Hypertensive emergency Hypoxemia Ischemic cardiomyopathy MGUS (monoclonal gammopathy of unknown significance) Mild episode of recurrent major depressive disorder Monoclonal (M) protein disease, multiple 'M' protein Nicotine addiction NSTEMI (non-ST elevated myocardial infarction) ([facility]) Peyronie's disease Secondary hyperparathyroidism Status post insertion of drug eluting coronary artery stent Hypoglycemia unawareness associated with type 2 diabetes mellitus ([facility]/HCC) GERD (gastroesophageal reflux disease) Diabetic retinopathy ([facility]) COVID-19 Pre-transplant evaluation for kidney and pancreas [...] TAKE 1 TABLET OR (more content not included)...[facility]02-26-2025 Evaluation note* Diagnosis Onset Date Resolution Status Admit Date ASHD (arteriosclerotic heart disease) acute October 14 12:55pm Chronic bronchitis, mucopurulent acu te October 14, 2024 12:55pm Chronic heart failure with preserved ejection fraction (HFpEF) acute October 14 12:55pm Contusion of right lower extremity acute October 14 12:55pm Primary hypertension acute uary 2024 12:55pm Type 1 diabetes mellitus wit h hyperglycemia acute October 14 12:55pm ESRD (end stage renal diseas e) on dialysis deleted October 14 12:55pm Nicotine addiction deleted 2024 12:55pm ESRD (end stage renal disease) [...] dialysis deleted November 01, 2024 10:56pm [facility] Work Phone: [phone] 439-879502-10-[address] Mason, external vessels are free of calcification, but both common iliacs have posterior calcifications.[facility] 09-17-2024 Consult note Author Crow Conte [facility] Note Date/Time September 17, 2024 3 :42pm [facility] [address] [place] [address] Pulmonology Consult Note Signed Patient: Yoel Werner MR#: [id number] : 1985 Acct:[id number] Age/Sex: 39 / M Adm Date: 5 Loc: 3T Room: 7Y5428-0 Type: ADM IN Attending Dr: Toney Riley [...] negative unless noted below or in HPI [facility] Medical History (Updated 09/16/24 @ 12:27 by [...] Confirmed 09/16/24] 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 meter,continuous (FreeStyle Ramy 3 De Pere) #1 ea 03/02/24 [Rx Confirmed 09/02/24] 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 meter,continuous (FreeStyle Ramy 3 De Pere) #1 ea 03/19/24 [Rx Confirmed 09/02/24] omeprazole [...] 2 09/17/24 10:00 09/17/24 10:00 09/17/24 10:09/17/24 10:00 09/17/24 10:09/17/24 10:09/16/24 21:38 Narrative: General: Weak, alert, [...] point. Documented By: Crow Conte MD 09/17/24 1045 Signed By: <Electronically signed by Crow Conte MD> 09/17/24 1542 [facility] Work Phone: 1(595) 773-155001-30-2025 Radiology [facility] Progress note Author Angel Mejía [facility] Note Date/Time September 17, 2024 1 1:12am [facility] [address] [place] [address] Nephrology Progress Note Signed Patient: Yoel Werner MR#: [id number] : 1985 Acct:[id number] Age/Sex: 39 / M Adm Date: 5 Loc: Room: [address] [place] [address] Type: ADM IN Attending Dr: Toney Riley MD Copies to: ~ Date of Service: 09/17/2024 Subjective Subjective Narrative: This is a 39-year-old male well-known to me from outpatient [facility] dialysis unit was a presented emergency room for abdominal pain and nausea. Patient has a ESRD due to the diabetic nephropathy and hypertensive nephrosclerosis. He currently goes to the [facility] dialysis 3 times a week on MWF schedule. He has a AV fistula as a dialysis access. He currently undergoing evaluation for pancreas kidney transplant and was seen at the [facility] yesterday. Patient on evaluation emergency room was [...] Skin: No rashes , warm to touch TEST DESK TROUBLE LOCATOR: Awake,Alert, following simple command Musculoskeletal: No swelling [...] 10 Mg Tablet) 10 mg PO DAILY [facility] Stop: 09/16/25 10:29 Last Admin: 09/17/24 10:20 Dose: 10 mg Aspirin (Aspirin 81 Mg Tab.Chew) 81 mg PO QAM [facility] Stop: 09/16/25 08:59 Last Admin: 09/17/24 10:20 Dose: 81 mg Atorvastatin Calcium (Atorvastatin 80 Mg Tablet) 80 mg PO QPM [facility] Stop: 09/16/25 08:59 Last Admin: 09/16/24 21:46 Dose: 80 mg Azithromycin (Azithromycin 250 Mg Tablet) 250 mg PO Q24H [facility] Stop: 09/19/24 21:01 Last Admin: 09/16/24 21:46 Dose: 250 mg Calcium Acetate (Calcium Acetate 667 Mg Capsule) 1,334 mg PO TID.WITH.MEALS [facility] Stop: 09/16/25 07:59 Last Admin: 09/17/24 10:19 Dose: Not Given Carvedilol (Carvedilol 25 Mg Tablet) 25 mg PO BID [facility] Stop: 09/16/25 08:59 Last Admin: 09/17/24 10:19 Dose: 25 mg Clopidogrel Bisulfate (Clopidogrel Bisulfate 75 Mg Tablet) 75 mg PO DAILY [facility] Stop: 09/16/25 08:59 Last Admin: 09/17/24 10:19 [...] 20 Mg Tablet) 40 mg PO QPM [facility] Stop: 09/16/25 20:59 Last Admin: 09/16/24 21:46 Dose: 40 mg Furosemide (Furosemide 80 Mg Tablet) 80 mg PO BID@0800,1600 [facility] Stop: 09/16/25 07:59 Last Admin: 09/17/24 10:19 [...] 50 Mg Tablet) 100 mg PO BID [facility] Stop: 09/16/25 08:59 Last Admin: 09/17/24 10:19 Dose: 100 mg Hydroxyzine Pamoate (Hydroxyzine Pamoate 25 Mg Capsule) 25 - 50 mg PO [facility] Stop: 09/16/25 21:59 Last Admin: 09/16/24 21:47 Dose: 50 mg Ceftriaxone Sodium (Rocephin) 1 gm in 50 mls @ 100 mls/hr IV Q24H [facility] Last Infusion: 09/17/24 00:32 Dose: Infused Sodium Chloride (0.9% Sodium Chloride 1,000 Ml) 1,000 mls @ 0 mls/hr MISCELLANE.Q0M PRN PRN Reason: Dialysis Stop: 09/16/25 09:22 Last Infusion: 09/16/24 12:02 Dose: Infused Insulin Aspart (Insulin Aspart 300 Units/3 Ml) 0 units SUBCUT TID.WM.[facility]; Protocol Stop: 09/16/25 07:59 Last Admin: 09/17/24 10:20 Dose: Not Given Insulin Glargine (Insulin Glargine 300 Units/3 Ml Insuln.Pen) 10 units SUBCUT [facility] Stop: 09/17/25 21:59 Isosorbide Mononitrate (Isosorbide Mononitrate 24hr Er 60 Mg Tab.Er.24h) 60 mg PO BID [facility] Stop: 09/16/25 08:59 Last Admin: 09/17/24 10:19 Dose: 60 mg Lisinopril (Lisinopril 20 Mg Tablet) 20 mg PO DAILY [facility] Stop: 09/16/25 08:59 Last Admin: 09/17/24 10:19 [...] Tablet.Dr) 40 mg PO BID [facility] Stop: 09/16/25 08:59 Last Admin: 09/17/24 10:18 [...] by Angel Mejía MD> 09/17/24 1112 [facility] Work Phone: [phone] 906-697901-29-2025 Consult note Author Angel Mejía [facility] Note Date/Time September 16, 2024 1 2:40pm [facility] [address] [place] [address] Nephrology Consult Note Signed Patient: Yoel Werner MR#: [id number] : 1985 Acct:[id number] Age/Sex: 39 / M Adm Date: 5 Loc: Room: 4M5762-6 Type: ADM IN Attending Dr: Enrique Kirby DO Copies to: MD Eusebio Castellano DO Neal R Majumdar, DO~ Providers Consult Date: 09/16/24 Requesting Provider: Enrique Kirby DO Primary Care Provider: Eusebio Olivares DO HPI Reason for Consult: ESRD management History of Present Illness: This is a 39-year-old male well-known to me from outpatient [facility] dialysis unit was a presented emergency room for abdominal pain and nausea. Patient has a ESRD due to the diabetic nephropathy and hypertensive nephrosclerosis. He currently goes to the [facility] dialysis 3 times a week on MWF schedule. He has a AV fistula as a dialysis access. He currently undergoing evaluation for pancreas kidney transplant and was seen at the [facility] yesterday. Patient on evaluation emergency room was [...] polydipsia Dermatological: denies any itching or rash [facility] Medical History (Updated 09/16/24 @ 12:27 by [...] Confirmed 09/16/24] 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 meter,continuous (FreeStyle Ramy 3 De Pere) #1 ea 03/02/24 [Rx Confirmed 09/02/24] 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 meter,continuous (FreeStyle Ramy 3 De Pere) #1 ea 03/19/24 [Rx Confirmed 09/02/24] omeprazole [...] QID.RESP [facility] Stop: 09/16/25 07:59 Last Admin: 09/16/24 09:44 Dose: 3 ml Amlodipine Besylate (Amlodipine 10 Mg Tablet) 10 mg PO DAILY [facility] Stop: 09/16/25 10:29 Last Admin: 09/16/24 10:53 Dose: 10 mg Aspirin (Aspirin 81 Mg Tab.Chew) 81 mg PO QAM [facility] Stop: 09/16/25 08:59 Last Admin: 09/16/24 10:50 Dose: 81 mg Atorvastatin Calcium (Atorvastatin 80 Mg Tablet) 80 mg PO QPM [facility] Stop: 09/16/25 08:59 Azithromycin (Azithromycin 250 Mg Tablet) 250 mg PO Q24H [facility] Stop: 09/19/24 21:01 Calcium Acetate (Calcium Acetate 667 Mg Capsule) 1,334 mg PO TID.WITH.MEALS [facility] Stop: 09/16/25 07:59 Last Admin: 09/16/24 10:52 Dose: 1,334 mg Carvedilol (Carvedilol 25 Mg Tablet) 25 mg PO BID [facility] Stop: 09/16/25 08:59 Last Admin: 09/16/24 10:50 Dose: 25 mg Clopidogrel Bisulfate (Clopidogrel Bisulfate 75 Mg Tablet) 75 mg PO DAILY [facility] Stop: 09/16/25 08:59 Last Admin: 09/16/24 10:53 Dose: 75 mg Dextrose (Dextrose 50% In Water 25 Gm/50 Ml Syringe) 0 gm IV-PUSH PRN PRN PRN Reason: Hypoglycemia Stop: 09/16/25 02:16 Epoetin Alexus (Epoetin Alexus (Esrd Use) 20,000 Unit/Ml Vial) 11,000 unit IV-PUSH MoWeFr@1000 [facility]; Protocol Stop: 09/16/25 09:59 Famotidine (Famotidine 20 Mg Tablet) 40 mg PO QPM [facility] Stop: 09/16/25 20:59 Furosemide (Furosemide 80 Mg Tablet) 80 mg PO BID@0800,1600 [facility] Stop: 09/16/25 07:59 Last Admin: 09/16/24 10:51 [...] 50 Mg Tablet) 100 mg PO BID [facility] Stop: 09/16/25 08:59 Last Admin: 09/16/24 10:52 Dose: 100 mg Hydroxyzine Pamoate (Hydroxyzine Pamoate 25 Mg Capsule) 25 - 50 mg PO [facility] Stop: 09/16/25 21:59 Ceftriaxone Sodium (Rocephin) 1 gm in 50 mls @ 100 mls/hr IV Q24H [facility] Sodium Chloride (0.9% Sodium Chloride 1,000 Ml) 1,000 mls @ 0 mls/hr MISCELLANE.Q0M PRN PRN Reason: Dialysis Stop: 09/16/25 09:22 Insulin Aspart (Insulin Aspart 300 Units/3 Ml) 0 units SUBCUT TID.WM.[facility]; Protocol Stop: 09/16/25 07:59 Last Admin: 09/16/24 09:30 Dose: Not Given Insulin Glargine (Insulin Glargine 300 Units/3 Ml Insuln.Pen) 20 units SUBCUT [facility] Stop: 09/16/25 21:59 Isosorbide Mononitrate (Isosorbide Mononitrate 24hr Er 60 Mg Tab.Er.24h) 60 mg PO BID [facility] Stop: 09/16/25 08:59 Last Admin: 09/16/24 10:52 Dose: 60 mg Lisinopril (Lisinopril 20 Mg Tablet) 20 mg PO DAILY [facility] Stop: 09/16/25 08:59 Last Admin: 09/16/24 10:51 [...] 40 Mg Tablet.Dr) 40 mg PO BID [facility] Stop: 09/16/25 08:59 Last Admin: 09/16/24 10:51 Dose: 40 mg Paricalcitol (Paricalcitol 10 Mcg/2 Ml Vial) 5 mcg IV-PUSH MoWeFr@1000 [facility] Stop: 09/16/25 09:59 Sennosides (Sennosides 8.6 Mg Tablet) 8.6 mg PO BID [facility] Stop: 09/16/25 08:59 Last Admin: 09/16/24 10:53 Dose: 8.6 mg Sertraline HCl (Sertraline 100 Mg Tablet) 100 mg PO DAILY [facility] Stop: 09/16/25 08:59 Last Admin: 09/16/24 10:55 [...] Skin: No rashes , warm to touch TEST DESK TROUBLE LOCATOR: Awake,Alert, following simple command Musculoskeletal: No swelling or limitation of movement of the large joints Psychiatric: Cooperative, normal mood and affect Results - Nephrology Labs 09/16/24 04:45 09/16/24 04:52 Labs: 09/15/24 09/16/24 09/16/24 21:34 04:52 08:39 BUN 49 H 52 H Creatinine 6.29 H 6.71 H Albumin 4.0 Urine Color Yellow Urine Appearance Cloudy A Urine pH >= 9.0 Ur Specific Crossett 1.012 Urine Protein 300 H Urine Glucose [...] Angel Mejía MD 09/16/24 1136 Signed By: <Electronically signed by Angel Mejía MD> 09/16/24 0125 [facility] Work Phone: 1([phone] 395-697301-29-2025 Consult [place] [id number] Nephrology Consult Note Signed Patient: Yoel Werner MR#: [id number] : 1985 Acct:[id number] Age/Sex: 39 / M Adm Date: 5 Loc: Room: [address] [place] [address] Type: ADM IN Attending Dr: Enrique Kirby DO Copies to: MD Eusebio Castellano DO Neal R Majumdar, DO~ Providers Consult Date: 09/16/24 Requesting Provider: Enrique Kirby DO Primary Care Provider: Eusebio Olivares DO HPI Reason for Consult: ESRD management History of Present Illness: This is a 39-year-old male well-known to me from outpatient [facility] dialysis unit was a presented emergency room for abdominal pain and nausea. Patient has a ESRD due to the diabetic nephropathy andhypertensive nephrosclerosis. He currently goes to the [facility] 3 times a week on MWF schedule. He has a AV fistula as a dialysis access. He currently undergoing evaluation for pancreas kidney transplant and was seen at the [facility] yesterday. Patient on evaluation emergency room was [...] polydipsia Dermatological: denies any itching or rash [facility] Medical History (Updated 09/16/24 @ 12:27 by [...] Confirmed 09/16/24] 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 meter,continuous (FreeStyle Ramy 3 De Pere) #1 ea 03/02/24 [Rx Confirmed 09/02/24] 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 meter,continuous (FreeStyle Ramy 3 De Pere) #1 ea 03/19/24 [Rx Confirmed 09/02/24] omeprazole [...] QID.RESP [facility] Stop: 09/16/25 07:59 Last Admin: 09/16/24 09:44 Dose: 3 ml Amlodipine Besylate (Amlodipine 10 Mg Tablet) 10 mg PO DAILY [facility] Stop: 09/16/25 10:29 Last Admin: 09/16/24 10:53 Dose: 10 mg Aspirin (Aspirin 81 Mg Tab.Chew) 81 mg PO QAM [facility] Stop: 09/16/25 08:59 Last Admin: 09/16/24 10:50 Dose: 81 mg Atorvastatin Calcium (Atorvastatin 80 Mg Tablet) 80 mg PO QPM [facility] Stop: 09/16/25 08:59 Azithromycin (Azithromycin 250 Mg Tablet) 250 mg PO Q24H [facility] Stop: 09/19/24 21:01 Calcium Acetate (Calcium Acetate 667 Mg Capsule) 1,334 mg PO TID.WITH.MEALS [facility] Stop: 09/16/25 07:59 Last Admin: 09/16/24 10:52 Dose: 1,334 mg Carvedilol (Carvedilol 25 Mg Tablet) 25 mg PO BID [facility] Stop: 09/16/25 08:59 Last Admin: 09/16/24 10:50 Dose: 25 mg Clopidogrel Bisulfate (Clopidogrel Bisulfate 75 Mg Tablet) 75 mg PO DAILY [facility] Stop: 09/16/25 08:59 Last Admin: 09/16/24 10:53 Dose: 75 mg Dextrose (Dextrose 50% In Water 25 Gm/50 Ml Syringe) 0 gm IV-PUSH PRN PRN PRN Reason: Hypoglycemia Stop: 09/16/25 02:16 Epoetin Alexus (Epoetin Alexus (Esrd Use) 20,000 Unit/Ml Vial) 11,000 unit IV-PUSH MoWeFr@1000 [facility]; Protocol Stop: 09/16/25 09:59 Famotidine (Famotidine 20 Mg Tablet) 40 mg PO QPM [facility] Stop: 09/16/25 20:59 Furosemide (Furosemide 80 Mg Tablet) 80 mg PO BID@0800,1600 [facility] Stop: 09/16/25 07:59 Last Admin: 09/16/24 10:51 [...] 50 Mg Tablet) 100 mg PO BID [facility] Stop: 09/16/25 08:59 Last Admin: 09/16/24 10:52 Dose: 100 mg Hydroxyzine Pamoate (Hydroxyzine Pamoate 25 Mg Capsule) 25 - 50 mg PO [facility] Stop: 09/16/25 21:59 Ceftriaxone Sodium (Rocephin) 1 gm in 50 mls @ 100 mls/hr IV Q24H [facility] Sodium Chloride (0.9% Sodium Chloride 1,000 Ml) 1,000 mls @ 0 mls/hr MISCELLANE.Q0M PRN PRN Reason: Dialysis Stop: 09/16/25 09:22 Insulin Aspart (Insulin Aspart 300 Units/3 Ml) 0 units SUBCUT TID.WM.[facility]; Protocol Stop: 09/16/25 07:59 Last Admin: 09/16/24 09:30 Dose: Not Given Insulin Glargine (Insulin Glargine 300 Units/3 Ml Insuln.Pen) 20 units SUBCUT [facility] Stop: 09/16/25 21:59 Isosorbide Mononitrate (Isosorbide Mononitrate 24hr Er 60 Mg Tab.Er.24h) 60 mg PO BID [facility] Stop: 09/16/25 08:59 Last Admin: 09/16/24 10:52 Dose: 60 mg Lisinopril (Lisinopril 20 Mg Tablet) 20 mg PO DAILY [facility] Stop: 09/16/25 08:59 Last Admin: 09/16/24 10:51 [...] 40 Mg Tablet.Dr) 40 mg PO BID [facility] Stop: 09/16/25 08:59 Last Admin: 09/16/24 10:51 Dose: 40 mg Paricalcitol (Paricalcitol 10 Mcg/2 Ml Vial) 5 mcg IV-PUSH MoWeFr@1000 [facility] Stop: 09/16/25 09:59 Sennosides (Sennosides 8.6 Mg Tablet) 8.6 mg PO BID [facility] Stop: 09/16/25 08:59 Last Admin: 09/16/24 10:53 Dose: 8.6 mg Sertraline HCl (Sertraline 100 Mg Tablet) 100 mg PO DAILY [facility] Stop: 09/16/25 08:59 Last Admin: 09/16/24 10:55 [...] Skin: No rashes , warm to touch TEST DESK TROUBLE LOCATOR: Awake,Alert, following simple command Musculoskeletal: No swelling or limitation of movement of the large joints Psychiatric: Cooperative, normal mood and affect Results - Nephrology Labs 09/16/24 04:45 09/16/24 04:52 Labs: 09/15/24 09/16/24 09/16/24 21:34 04:52 08:39 BUN 49 H 52 H Creatinine 6.29 H 6.71 H Albumin 4.0 Urine Color Yellow Urine Appearance Cloudy A Urine pH >= 9.0 Ur Specific Crossett 1.012 Urine Protein 300 H Urine Glucose (UA) 250 H Urine Ketones Negative Urine Occult Blood 1+ H Urine Nitrite Negative Ur Leukocyte Esterase Negative Urine RBC 10-19 H Urine WBC 1-2 Urine Bacteria None seen Radiology Impressions Impressions - last 24 hours: Impressions Chest X-Ray 09/15/24 21:30 IMPRESSION: Focal left basilar atelectasis/infiltrate Impression dictated by: Alec Flynn M.D.09/15/2024 10:19 PM Dictation Location: [place] [address] Abdomen/Pelvis CT 09/15/24 22:55 IMPRESSION: No bowel obstruction. Mild constipation. Impression dictated by: Alec Flynn M.D.09/15/2024 11:16 PM Dictation Location: [place] [address] Any impression(s) listed above is documentation that [...] MD 09/16/24 1136 Signed By: 09/16/24 1240 [facility]01-29-2025 History and physical note Author Brigid Anderson [facility] Note Date/Time September 16, 2024 5 :03am [facility] [address] [place] [address] Hospitalist H&P Signed Patient: Yoel Werner MR#: [id number] : 1985 Acct:[id number] Age/Sex: 39 / M Adm Date: 5 Loc: Room: [address] [place] [address] Type: ADM IN Attending Dr: Julio Allen MD Copies to: DO Julio Leblanc MD Paula G Smith, AMUSEMENT MACHINE MECHANIC~ HPI DATE OF EXAMINATION: 09/16/24 CHIEF COMPLAINT: [...] stream x 2. He been up to [facility] yesterday for testing for his kidney and [...] will be admitted as inpatient to the [facility] telemetry floor. Review of Systems Review of Systems Review of systems: A 10 point review of systems was obtained, negative unless noted in the HPI or below. [facility] Medical History (Updated 09/16/24 @ 03:38 by [...] Confirmed 09/16/24] 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 meter,continuous (FreeStyle Ramy 3 De Pere) #1 ea 03/02/24 [Rx Confirmed 09/02/24] 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 meter,continuous (FreeStyle Ramy 3 De Pere) #1 ea 03/19/24 [Rx Confirmed 09/02/24] omeprazole [...] % (Auto) 11.0 % (.) 09/15/24 21:34 Winkler % (Auto) 10.9 % (.) 09/15/24 21:34 Eos % (Auto) 1.8 % (.) 09/15/24 21:34 Baso % (Auto) 1.4 % (.) 09/15/24 21:34 Nucleat RBC Rel Count 0.1 /100 WBC (0-0.5) 09/15/24 21:34 Neut # (Auto) 2.6 x10E3/uL (1.8-7.7) 09/15/24 21:34 Lymph # (Auto) 0.4 x10E3/uL (1.00-4.8) L 09/15/24 21:34 Winkler # (Auto) 0.4 x10E3/uL (0.0-0.8) 09/15/24 21:34 [...] nephrology for dialysis treatment, patient is on M/W/F schedule HTN GERD DVT PPx?heparin Diet order?1800 [...] signed by Julio Allen MD> 09/16/24 0503 [facility] Work Phone: 1(864) 314-254501-29-2025 History and physical note Author Brigid Anderson [facility] Note Date/Time September 16, 2024 5 :03am [facility] [address] [place] [address] Hospitalist H&P Signed Patient: Yoel Werner MR#: [id number] : 1985 Acct:[id number] Age/Sex: 39 / M Adm Date: 5 Loc: Room: [address] [place] [address] Type: ADM IN Attending Dr: Julio Allen MD Copies to: DO Julio Leblanc MD Paula G Smith, AMUSEMENT MACHINE MECHANIC~ HPI DATE OF EXAMINATION: 09/16/24 CHIEF COMPLAINT: [...] stream x 2. He been up to [facility] yesterday for testing for his kidney and [...] will be admitted as inpatient to the [facility] telemetry floor. Review of Systems Review of Systems Review of systems: A 10 point review of systems was obtained, negative unless noted in the HPI or below. [facility] Medical History (Updated 09/16/24 @ 03:38 by [...] Confirmed 09/16/24] 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 meter,continuous (FreeStyle Ramy 3 De [place]re) #1 ea 03/02/24 [Rx Confirmed 09/02/24] 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 meter,continuous (FreeStyle Ramy 3 [place]) #1 ea 03/19/24 [Rx Confirmed 09/02/24] omeprazole [...] % (Auto) 11.0 % (.) 09/15/24 21:34 Winkler % (Auto) 10.9 % (.) 09/15/24 21:34 Eos % (Auto) 1.8 % (.) 09/15/24 21:34 Baso % (Auto) 1.4 % (.) 09/15/24 21:34 Nucleat RBC Rel Count 0.1 /100 WBC (0-0.5) 09/15/24 21: Neut # (Auto) 2.6 x10E3/uL (1.8-7.7) 09/15/24 21:34 Lymph # (Auto) 0.4 x10E3/uL (1.00-4.8) L 09/15/24 21:34 Winkler # (Auto) 0.4 x10E3/uL (0.0-0.8) 09/15/24 21:34 [...] signed by Julio Allen MD> 09/16/24 0503 [facility] Work Phone: 1(400) 363-580301-29-2025 [place] [address] Hospitalist H&P Signed Patient: Yoel Werner MR#: [id number] : 1985 Acct:[id number] Age/Sex: 39 / M Adm Date: 5 Loc: Room: [address] [place] [address] Type: ADM IN Attending Dr: Julio Allen MD Copies to: DO Julio Leblanc MD Paula G Smith, AMUSEMENT MACHINE MECHANIC~ HPI DATE OF EXAMINATION: 09/16/24 CHIEF COMPLAINT: [...] poor stream x 2. Hebeen up to [facility] yesterday for testing for his kidney and [...] will be admitted as inpatient to the [facility] telemetry floor. Review of Systems Review of Systems Review of systems: A 10 point review of systems was obtained, negative unless noted in the HPI or below. [facility] Medical History (Updated 09/16/24 @ 03:38 by Brigid Anderson, JOSH) Chronic heart failure with preserved ejection fraction [...] Confirmed 09/16/24] 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 meter,continuous (FreeStyle Ramy 3 De Pere) #1 ea 03/02/24 [Rx Confirmed 09/02/24] 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 meter,continuous (FreeStyle Ramy 3 [place]) #1 ea 03/19/24 [Rx Confirmed 09/02/24] omeprazole [...] % (Auto) 11.0 % (.) 09/15/24 21:34 Winkler % (Auto) 10.9 % (.) 09/15/24 21:34 Eos % (Auto) 1.8 % (.) 09/15/24 21:34 Baso % (Auto) 1.4 % (.) 09/15/24 21:34 Nucleat RBC Rel Count 0.1 /100 WBC (0-0.5) 09/15/24 21:34 Neut # (Auto) 2.6 x10E3/uL (1.8-7.7) 09/15/24 21:34 Lymph # (Auto) 0.4 x10E3/uL (1.00-4.8) L 09/15/24 21:34 Winkler # (Auto) 0.4 x10E3/uL (0.0-0.8) 09/15/24 21:34 [...] (# of days): 3 Documented By: Brigid Anderson, AMUSEMENT MACHINE MECHANIC 09/16/24 0323 Signed By: 09/16/24 0357 09/16/24 0503 [facility]01-28-2025 Radiology Diagnostic study note [facility] [place] [address] [place] [address] CT Scan Report Signed Patient: Yoel Werner MR#: [id number] : 1985 Acct:[id number] Age/Sex: 39 / M ADM Date: 5 Loc: ER Room: Type: [facility] ER Attending Dr: Copies to: Romain Roy DO~ Ordering Provider: Romain Roy DO Date of Service: 09/15/24 CT/CT abdomen [...] Dictation [facility]- Transcribed By: BRENNAN 09/15/242315 Dictated By: Alec Flynn DO 09/15/242311 Signed By: 09/15/242315 [facility]01-21-2025 NoteI saw the patient in the [...] information and patient financial responsibility forms they signed.[facility]01-21-2025 NoteCoordinator met with patient for kidney/pancreas transplant evaluation appointment in Transplant clinic today. Explained transplant process and consents with patient. Answered patient questions. Social work, finance and mamma logist in to see patient. Dr. King in for H&P and transplant plan. Dr. Cardenas in for surgical evaluation. Coordinator provided copy of plan to patient and reviewed it with them. Patient aware further testing needed and to keep transplant team updated. Understanding verbalized by patient. Data Conversion Operator provided verbal order for patient labs. Work-up Needed-Date of Eval Letter Mailed to patient and faxed to Data Conversion Operator/ Dialysis Center. Grinding Mill Operator provided patient TE folder with education on various transplant consents, the workup process, surgery details, postop expectations, transplant statistics, and living donor information. Answered patient questions and verified understanding.[facility]01-21-2025 NotePre- Transplant Kidney Evaluation Surgery Consultation Chief Complaint Patient presents with Kidney Eval Pancreas Eval PCP: Eusebio Olivares DO Txp Referring: Nancy Haas Preferred Pharmacy: [facility]/pharmacy #[id number] AT CORNER OF [address] [address] Organ: Kidney/Pancreas Subjective Visit Vitals BP (!) [...] Review Audit Reviewed by Lesa Hurt MA (Vehicle Calibration Engineer) on 09/08/24 at 0907 Medication Order Taking? Sig Documenting Provider Last Dose Status Accu-Chek Guide Me Glucose Mtr [facility] [id number] Yes See administration instructions. Historical MD Ramo Taking Active Accu-Chek Guide test strips strip [id number] Yes USE TO TEST FOUR TIMES A DAY DIRECTED Historical ProviderMD Taking Active Accu-Chek Softclix Lancets mis [id number] Yes USE TO TEST BLOOD SUGAR TWICE DAILY Historical ProviderMD Taking Active albuterol 90 mcg/actuation inhaler [id number] Yes 2 puffs. Historical ProviderMD Taking Active aluminum sulfate-calcium acetate (Domeboro) 952-1,347 mg packet [id number] Yes 1,334 mg. Historical ProviderMD Taking Active amLODIPine (Norvasc) 5 mg tablet [id number] Yes Take 1 tablet (5 mg) by mouth in the morning. Patient taking differently: Take 10 mg by mouth in the morning. Stephen Lou MD Taking Differently Active aspirin 81 mg chewable tablet [id number] Yes 81 mg in the morning. Historical ProviderMD Taking Active atorvastatin (Lipitor) 80 mg tablet [id number] Yes 80 mg in the morning. Historical MD Ramo Taking Active azithromycin (Zithromax) 250 mg tablet [id number] No TAKE 1 TABLET ORALLY EVERY 24 HOURS FOR 3 DAYS START 08/30/24 Lexis Ralph MD Not Taking Active calcium acetate (Phoslo) 667 mg capsule [id number] Yes Take 1,334 mg by mouth. Historical ProviderMD Taking Active carvedilol (Coreg) 25 mg tablet [id number] Yes Take 25 mg by mouth with breakfast and with evening meal. Historical MD Ramo Taking Active cephalexin (Keflex) 500 mg capsule [id number] No Take 1 capsule by mouth Twice daily at 6am and 6pm. Lexis Ralph MD Not Taking Active clopidogrel (Plavix) 75 mg tablet [id number] Yes Take 75 mg by mouth in the morning. Historical MD Ramo Taking Active Dexcom G6 Sensor device [id number] Yes CHANGE SENSOR EVERY 10 DAYS. ICD 10 E10.65 Historical ProviderMD Taking Active Dexcom G6 Transmitter device [id number] Yes CHANGE EVERY 90 DAYS DX E10.65 Historical ProviderMD Taking Active diclofenac (Voltaren) 1 % topical gel [id number] Yes Apply 2 g topically 3 times a day. Historical ProviderMD Taking Active famotidine (Pepcid) 20 mg tablet [id number] Yes 20 mg in the morning. Historical ProviderMD Taking Active ferric gluconate (Ferrlecit) 62.5 mg/5 mL injection [id number] Yes Infuse 62.5 mg into a venous catheter. Historical ProviderMD Taking Active furosemide (Lasix) 40 mg tablet [id number] Yes Take 80 mg by mouth two times daily. Historical ProviderMD Taking Active heparin sodium,porcine/PF (heparin, porcine, PF,) 1,000 unit/mL solution [id number] Yes Infuse 1,000 Units into a venous catheter. Historical ProviderMD Taking Active hydrALAZINE (Apresoline) 100 mg tablet [id number] Yes Take 100 mg by mouth two times daily. Historical ProviderMD Taking Active hydrOXYzine HCL (Atarax) 25 mg tablet [id number] Yes Take 25 mg by mouth in the morning. Historical ProviderMD Taking Active hyoscyamine (Anaspaz,Levsin) 0.125 mg tablet [id number] Yes TAKE 1 TABLET BY MOUTH EVERY 6 HOURS NEEDED FOR ABDOMINAL PAIN Historical MD Ramo Taking Active insulin glargine (Lantus) 100 unit/mL (3 mL) injection pen [id number] Yes Inject 20 Units under the skin in the morning. Historical MD Ramo Taking Active insulin lispro (HumaLOG) 100 unit/mL injection pen [id number] Yes Inject 4 times a day before meals & bedtime. [id number]; 170-189=3units; 190-209=4units; 210-229=6units; 230-249=8units; 250-269=9units; 270-289=10units; 290-300=12units; >300=14units & notify provider Lexis Ralph MD Taking Active isosorbide mononitrate ER (Imdur) 60 mg 24 hr tablet [id number] Yes Take 60 mg by mouth two times daily. Historical Provider, Taking Active lisinopril 20 mg tablet [id number] Yes 20 mg in the morning. Historical Provider, Taking Active loratadine (Claritin) 10 mg tablet [id number] Yes Take 10 mg by mouth every other day. Historical Provider, Taking Active nitroglycerin (Nitrostat) 0.4 mg SL tablet [id number] Yes 0.4 mg. Historical Provider, Taking Active omep (more content not included)...[facility]01-21-2025 NoteIdentifying Information Name: Yoel Werner : 1985 Assessment date: 09/08/2024 Transplant type: Pancreas Transplant Evaluation - 09/08/2024 Primary language: Panamanian Amish/spirituality: Yarsanism People present at assessment: none Do you have any zoroastrian, ethical or personal objections to accepting blood products, surgery and/or transplant? No Citizenship Where were you born? In the [place] in [place], [place] Where do you currently live or are staying? [place] - 1 hour Family Background and Supportive Relationships Parents: Mother- , pancreatic cancer. Father- living, healthy Siblings: 1 sister, healthy Children: Other 4 bio, 1 adoptive, 1 Number of children, living or (UNOS question): 6 Names, age, health status, relationship, address: Sharon, 13, healthy, Óscar Castellano, 12, healthy, Óscar Kuldeep, 10, healthy, Óscar Kenney, 9, healthy, Óscar-- had been a twin with son that passed Adoptive son- Jet, 6 Marital/relationship status: Household composition: Lives alone Support / Caregiver Plans Who will be your primary caregiver? 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 Able to drive. Who will be your secondary caregiver(s)? mother and/or father Jake Contact #: [phone] Health status & availability: Healthy, retired, able [...] Rel Member # Group # [facility]IC[facility] YOEL WERNER Self [id number] [address] MEDICAID [facility]* YOEL WERNER Self [id number] [address] [place] [address] Are you aware of a coordination of benefits with your insurance and Medicare (if applicable)? yes Are you receiving assistance through [employer] JANAE Program: No Medication Coverage [...] Start End Type Center Comments 03/01/2023 Hemo [facility] Dialysis Center Information [facility] Address: [address] [place] [address], [facility] [place] [address] Dialysis Schedule: MWF 7am- 3.5 hours, 2-4kg pulled Treatment Compliance / Adherence How do you manage your medications now? Memory and Pillbox Do you have any difficulties in getting or taking your medications? Now using Connected, no issues so far Do you know [...] know about the r (more content not included)...[facility]01-21-2025 NotePre-Transplant Evaluation Nephrology Consult Chief Complaint Patient presents with Kidney Eval Pancreas Eval PCP: Eusebio Olivares, DO Txp Referring: Nancy Haas Preferred Pharmacy: [id number] AT [place] [address] Organ: Kidney/Pancreas Subjective Visit Vitals BP (!) [...] Review Audit Reviewed by Lesa Hurt MA (Vehicle Calibration Engineer) on 09/08/24 at 0907 Medication Order Taking? Sig Documenting Provider Last Dose Status Accu-Chek Guide Me Glucose Mtr [facility] [id number] Yes See administration instructions. Historical Provider, Taking Active Accu-Chek Guide test strips strip [id number] Yes USE TO TEST FOUR TIMES A DAY DIRECTED Historical Provider, Taking Active Accu-Chek Softclix Lancets misc [id number] Yes USE TO TEST BLOOD SUGAR TWICE DAILY Historical Provider, Taking Active albuterol 90 mcg/actuation inhaler [id number] Yes 2 puffs. Historical Provider, Taking Active aluminum sulfate-calcium acetate (Domeboro) 952-1,347 mg packet [id number] Yes 1,334 mg. Historical Provider, Taking Active amLODIPine (Norvasc) 5 mg tablet [id number] Yes Take 1 tablet (5 mg) by mouth in the morning. Patient taking differently: Take 10 mg by mouth in the morning. Stephen Lou MD Taking Differently Active aspirin 81 mg chewable tablet [id number] Yes 81 mg in the morning. Historical Provider, Taking Active atorvastatin (Lipitor) 80 mg tablet [id number] Yes 80 mg in the morning. Historical Provider, Taking Active azithromycin (Zithromax) 250 mg tablet [id number] No TAKE 1 TABLET ORALLY EVERY 24 HOURS FOR 3 DAYS START 08/30/24 Historical ProviderMD Not Taking Active calcium acetate (Phoslo) 667 mg capsule [id number] Yes Take 1,334 mg by mouth. Historical Provider, Taking Active carvedilol (Coreg) 25 mg tablet [id number] Yes Take 25 mg by mouth with breakfast and with evening meal. Historical Provider, Taking Active cephalexin (Keflex) 500 mg capsule [id number] No Take 1 capsule by mouth Twice daily at 6am and 6pm. Historical ProviderMD Not Taking Active clopidogrel (Plavix) 75 mg tablet [id number] Yes Take 75 mg by mouth in the morning. Historical ProviderMD Taking Active Dexcom G6 Sensor device [id number] Yes CHANGE SENSOR EVERY 10 DAYS. ICD 10 E10.65 Historical Provider, Taking Active Dexcom G6 Transmitter device [id number] Yes CHANGE EVERY 90 DAYS DX E10.65 Historical Provider, Taking Active diclofenac (Voltaren) 1 % topical gel [id number] Yes Apply 2 g topically 3 times a day. Historical Provider, Taking Active famotidine (Pepcid) 20 mg tablet [id number] Yes 20 mg in the morning. Historical Provider, Taking Active ferric gluconate (Ferrlecit) 62.5 mg/5 mL injection [id number] Yes Infuse 62.5 mg into a venous catheter. Historical Provider, Taking Active furosemide (Lasix) 40 mg tablet [id number] Yes Take 80 mg by mouth two times daily. Historical MD Ramo Taking Active heparin sodium,porcine/PF (heparin, porcine, PF,) 1,000 unit/mL solution [id number] Yes Infuse 1,000 Units into a venous catheter. Lexis Ralph MD Taking Active hydrALAZINE (Apresoline) 100 mg tablet [id number] Yes Take 100 mg by mouth two times daily. Lexis Ralph MD Taking Active hydrOXYzine HCL (Atarax) 25 mg tablet [id number] Yes Take 25 mg by mouth in the morning. Lexis Ralph MD Taking Active hyoscyamine (Anaspaz,Levsin) 0.125 mg tablet [id number] Yes TAKE 1 TABLET BY MOUTH EVERY 6 HOURS NEEDED FOR ABDOMINAL PAIN Historical MD Ramo Taking Active insulin glargine (Lantus) 100 unit/mL (3 mL) injection pen [id number] Yes Inject 20 Units under the skin in the morning. Lexis Ralph MD Taking Active insulin lispro (HumaLOG) 100 unit/mL injection pen [id number] Yes Inject 4 times a day before meals & bedtime. [id number]; 170-189=3units; 190-209=4units; 210-229=6units; 230-249=8units; 250-269=9units; 270-289=10units; 290-300=12units; >300=14units & notify provider Lexis Ralph MD Taking Active isosorbide mononitrate ER (Imdur) 60 mg 24 hr tablet [id number] Yes Take 60 mg by mouth two times daily. Historical MD Ramo Taking Active lisinopril 20 mg tablet [id number] Yes 20 mg in the morning. Historical MD Ramo Taking Active loratadine (Claritin) 10 mg tablet [id number] Yes Take 10 mg by mouth every other day. Historical MD Ramo Taking Active nitroglycerin (Nitrostat) 0.4 mg SL tablet [id number] Yes 0.4 mg. Historical MD Ramo Taking Active omeprazole (PriLOSEC) 40 (more content not included)...[facility]01-21-2025 NoteTransplant Nutrition Assessment Name: Yoel Werner : 1985 Assessment date: 09/08/2024 PMH: ischemic cardiomyopathy, DM, anasarca, anemia, ESRD, MD, HLD, HTN. Dialysis HX: on HD Height: [...] own cooking. Diabetes Management: Now has a ramy 3 CGM. On lantus 20units and humalog SS. Reports having lots of highs and lows, PCP manages his DM, he does not have an company pilot. A1C 8.1% 07/14/24 (he thinks this is [...] A1C 8.1%. Does not follow with an company pilot. -Patient has questionable compliance issues. -RD discussed the importance of good blood sugar control and he needs to follow a diabetic diet. Discussed eating three meals daily, including more protein sources, fruits and vegetables. Patient was not interested in diet education. -Recommend A1C <8%, consider referral to an company pilot. -Consider referral to a GI doctor due to chronic constipation and frequent vomiting to rule out gastroparesis. 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 [facility] [...] Skin: No rashes , warm to touch TEST DESK TROUBLE LOCATOR: Awake,Alert, following simple command Musculoskeletal: No swelling [...] 3 Ml Ampul.Neb) 3 ml INHALATION QID.RESP [facility] Stop: 08/28/25 07:59 Last Admin: 08/29/24 08:29 Dose: 3 ml Amlodipine Besylate (Amlodipine 2.5 Mg Tablet) 2.5 mg PO DAILY [facility] Stop: 08/28/25 08:59 Last Admin: 08/29/24 09:32 Dose: Not Given Aspirin (Aspirin 81 Mg Tab.Chew) 81 mg PO QAM [facility] Stop: 08/28/25 08:59 Last Admin: 08/29/24 09:32 Dose: Not Given Atorvastatin Calcium (Atorvastatin 80 Mg Tablet) 80 mg PO QPM [facility] Stop: 08/28/25 20:59 Last Admin: 08/28/24 21:10 Dose: 80 mg Azithromycin (Azithromycin 250 Mg Tablet) 250 mg PO Q24H [facility] Last Admin: 08/28/24 22:53 Dose: 250 mg Calcium Acetate (Calcium Acetate 667 Mg Capsule) 1,334 mg PO TID.WITH.MEALS [facility] Stop: 08/28/25 11:59 Last Admin: 08/29/24 07:45 Dose: 1,334 mg Carvedilol (Carvedilol 25 Mg Tablet) 25 mg PO BID.WITH.MEALS [facility] Stop: 08/28/25 07:59 Last Admin: 08/29/24 07:45 Dose: 25 mg Ceftriaxone Sodium (Ceftriaxone 1 Gm/10 Ml Syringe) 1 gm IV-PUSH DAILY@0100 [facility] Last Admin: 08/29/24 01:18 Dose: 1 gm Dextrose (Dextrose 50% In Water 25 Gm/50 Ml Syringe) 0 gm IV-PUSH PRN PRN PRN Reason: Hypoglycemia Stop: 08/28/25 03:22 Last Admin: 08/29/24 11:18 Dose: 25 gm Epoetin Alexus (Epoetin Alexus (Esrd Use) 20,000 Unit/Ml Vial) 10,000 unit IV-PUSH MoWeFr@0900 [facility]; Protocol Stop: 08/28/25 08:59 Last Admin: 08/28/24 10:44 Dose: 10,000 unit Furosemide (Furosemide 80 Mg Tablet) 80 mg PO BID@0800,1600 [facility] Stop: 08/28/25 07:59 Last Admin: 08/29/24 07:44 [...] 50 Mg Tablet) 100 mg PO BID [facility] Stop: 08/28/25 08:59 Last Admin: 08/29/24 09:32 Dose: Not Given Sodium Chloride (0.9% Sodium Chloride 1,000 Ml) 1,000 mls @ 0 mls/hr MISCELLANE.Q0M PRN PRN Reason: Dialysis Stop: 08/28/25 08:48 Last Infusion: 08/29/24 10:54 Dose: Infused Insulin Aspart (Insulin Aspart 300 Units/3 Ml) 0 units SUBCUT TID.WM.[facility]; Protocol Stop: 08/28/25 07:59 Last Admin: 08/29/24 07:45 Dose: 12 units Insulin Glargine (Insulin Glargine 300 Units/3 Ml Insuln.Pen) 20 units SUBCUT [facility] Stop: 08/28/25 08:59 Isosorbide Mononitrate (Isosorbide Mononitrate 24hr Er 60 Mg Tab.Er.24h) 60 mg PO BID [facility] Stop: 08/28/25 08:59 Last Admin: 08/29/24 10:06 Dose: Not Given Lisinopril (Lisinopril 20 Mg Tablet) 20 mg PO DAILY [facility] Stop: 08/28/25 08:59 Last Admin: 08/29/24 10:06 [...] 100 Mg Tablet) 100 mg PO DAILY [facility] Stop: 08/28/25 08:59 Last Admin: 08/29/24 10:06 [...] and hypertensive nephrosclerosis. Currently goes to the [facility] 3 times a week on MWF [...] Angel Mejía MD 08/29/24 1128 Signed By: <Electronically signed by Angel Mejía MD> 08/29/24 1129 [facility] Work Phone: 1(689) 710-991601-11-2025 [place] [id number] Nephrology Progress Note Signed Patient: Yoel Werner MR#: [id number] : 1985 Acct:[id number] Age/Sex: 39 / M Adm Date: Loc: Room: [address] [place] [address] Type: ADM IN Attending Dr: Law Cano [...] hypertensive nephrosclerosis. [facility] [...] Skin: No rashes , warm to touch TEST DESK TROUBLE LOCATOR: Awake,Alert, following simple command Musculoskeletal: No swelling [...] QID.RESP [facility] Stop: 08/28/25 07:59 Last Admin: 08/29/24 08:29 Dose: 3 ml Amlodipine Besylate (Amlodipine 2.5 Mg Tablet) 2.5 mg PO DAILY [facility] Stop: 08/28/25 08:59 Last Admin: 08/29/24 09:32 Dose: Not Given Aspirin (Aspirin 81 Mg Tab.Chew) 81 mg PO QAM [facility] Stop: 08/28/25 08:59 Last Admin: 08/29/24 09:32 Dose: Not Given Atorvastatin Calcium (Atorvastatin 80 Mg Tablet) 80 mg PO QPM [facility] Stop: 08/28/25 20:59 Last Admin: 08/28/24 21:10 Dose: 80 mg Azithromycin (Azithromycin 250 Mg Tablet) 250 mg PO Q24H [facility] Last Admin: 08/28/24 22:53 Dose: 250 mg Calcium Acetate (Calcium Acetate 667 Mg Capsule) 1,334 mg PO TID.WITH.MEALS [facility] Stop: 08/28/25 11:59 Last Admin: 08/29/24 07:45 Dose: 1,334 mg Carvedilol (Carvedilol 25 Mg Tablet) 25 mg PO BID.WITH.MEALS [facility] Stop: 08/28/25 07:59 Last Admin: 08/29/24 07:45 Dose: 25 mg Ceftriaxone Sodium (Ceftriaxone 1 Gm/10 Ml Syringe) 1 gm IV-PUSH DAILY@0100 [facility] Last Admin: 08/29/24 01:18 Dose: 1 gm Dextrose (Dextrose 50% In Water 25 Gm/50 Ml Syringe) 0 gm IV-PUSH PRN PRN PRN Reason: Hypoglycemia Stop: 08/28/25 03:22 Last Admin: 08/29/24 11:18 Dose: 25 gm Epoetin Alexus (Epoetin Alexus (Esrd Use) 20,000 Unit/Ml Vial) 10,000 unit IV-PUSH MoWeFr@0900 [facility]; Protocol Stop: 08/28/25 08:59 Last Admin: 08/28/24 10:44 Dose: 10,000 unit Furosemide (Furosemide 80 Mg Tablet) 80 mg PO BID@0800,1600 [facility] Stop: 08/28/25 07:59 Last Admin: 08/29/24 07:44 [...] 50 Mg Tablet) 100 mg PO BID [facility] Stop: 08/28/25 08:59 Last Admin: 08/29/24 09:32 Dose: Not Given Sodium Chloride (0.9% Sodium Chloride 1,000 Ml) 1,000 mls @ 0 mls/hr MISCELLANE.Q0M PRN PRN Reason: Dialysis Stop: 08/28/25 08:48 Last Infusion: 08/29/24 10:54 Dose: Infused Insulin Aspart (Insulin Aspart 300 Units/3 Ml) 0 units SUBCUT TID.WM.[facility]; Protocol Stop: 08/28/25 07:59 Last Admin: 08/29/24 07:45 Dose: 12 units Insulin Glargine (Insulin Glargine 300 Units/3 Ml Insuln.Pen) 20 units SUBCUT [facility] Stop: 08/28/25 08:59 Isosorbide Mononitrate (Isosorbide Mononitrate 24hr Er 60 Mg Tab.Er.24h) 60 mg PO BID [facility] Stop: 08/28/25 08:59 Last Admin: 08/29/24 10:06 Dose: Not Given Lisinopril (Lisinopril 20 Mg Tablet) 20 mg PO DAILY [facility] Stop: 08/28/25 08:59 Last Admin: 08/29/24 10:06 Dose: Not Given Nitroglycerin (Nitroglycerin 0.4 Mg Tab.Subl) 0.4 mg SUBLINGUAL Q5MIN.X3 PRN PRN Reason: Chest Pain Stop: 08/28/25 04:53 Pantoprazole Sodium (Pantoprazole 40 Mg Tablet.Dr) 40 mg PO BID [facility] Stop: 08/28/25 08:59 Last Admin: 08/29/24 10:06 Dose: Not Given Paricalcitol (Paricalcitol 10 Mcg/2 Ml Vial) 5 mcg IV-PUSH MoWeFr@0900 [facility] Stop: 08/28/25 08:59 Last Admin: 08/28/24 10:43 Dose: 5 mcg Saccharomyces Boulardii (Saccharomyces Boulardii 250 Mg Capsule) 250 mg PO BID.WITH.MEALS [facility] Stop: 08/28/25 07:59 Last Admin: 08/29/24 07:44 Dose: 250 mg Sertraline HCl (Sertraline 100 Mg Tablet) 100 mg PO DAILY [facility] Stop: 08/28/25 08:59 Last Admin: 08/29/24 10:06 [...] and hypertensive nephrosclerosis. Currently goes to the [facility] 3 times a week on MWF [...] output * Documented By: Angel Mejía MD 08/29/241127 Signed By: 08/29/24 1129 [facility]01-11-2025 Progress note Author Law Cano [facility] Note Date/Time August 29, 2024 1 :23am [facility] [address] [place] [address] Hospitalist Progress Note Signed Patient: Yoel Werner MR#: [id number] : 1985 Acct:[id number] Age/Sex: 39 / M Adm Date: 5 Loc: Room: [address] [place] [address] Type: ADM IN Attending Dr: Law Cano [...] complication, recommendation appreciated. Elevated Troponin Type II MD Troponin was found incidentally to be mildly [...] 80 Mg Tablet PO 08/28/25 20:59 QPM [facility] Azithromycin 250 mg 08/28/24 23:00 Azithromycin 250 Mg Tablet PO Q24H [facility] Calcium Acetate 1,334 mg 08/28/24 12:00 08/28/24 16:17 Calcium Acetate 667 Mg Capsule PO 08/28/25 11:59 1,334 mg TID.WITH.[facility] Administration Carvedilol 25 mg 08/28/24 08:00 08/28/24 16:17 Carvedilol 25 Mg Tablet PO 08/28/25 07:59 25 mg BID.WITH.MEALS [facility] Administration Ceftriaxone Sodium 1 gm 08/29/24 01:00 Ceftriaxone 1 Gm/10 Ml Syringe IV-PUSH DAILY@0100 [facility] Dextrose 0 gm 08/28/24 03:23 Dextrose 50% In Water 25 Gm/50 Ml Syringe IV-PUSH 08/28/25 03:22 PRN PRN Hypoglycemia Epoetin Alexus 10,000 unit 08/28/24 09:00 08/28/24 10:44 Epoetin Alexus (Esrd Use) 20,000 Unit/Ml Vial IV-PUSH 08/28/25 08:59 10,000 unit MoWeFr@0900 [facility] Administration Protocol Furosemide 80 mg 08/28/24 08:00 08/28/24 16:17 Furosemide 80 Mg Tablet PO 08/28/25 07:59 80 mg BID@0800,1600 [facility] Administration Glucose 0 gm 08/28/24 03:23 Dextrose [...] Tablet PO 08/28/25 08:59 Not Given BID [facility] Sodium Chloride 1,000 mls @ 0 mls/hr 08/28/24 08:49 08/28/24 10:45 0.9% Sodium Chloride 1,000 Ml MISCELLANE 08/28/25 08:48 Infused .Q0M PRN Infusion Dialysis As Directed Insulin Aspart 0 units 08/28/24 08:00 08/28/24 16:41 Insulin Aspart 300 Units/3 Ml SUBCUT 08/28/25 07:59 Not Given TID.WM.[facility] Protocol Insulin Glargine 20 units 08/28/24 09:00 [...] Plan Documented By: Law Cano MD 08/28/24 3850 Signed By: <Electronically signed by Law Cano MD> 08/29/24 0123 [facility] Work Phone: 1(546) 770-463501-11-2025 [place] [address] Hospitalist Progress Note Signed Patient: Yoel Werner MR#: [id number] : 1985 Acct:[id number] Age/Sex: 39 / M Adm Date: 5 Loc: Room: [address] [place] [address] Type: ADM IN Attending Dr: Law Cano [...] complication, recommendation appreciated. Elevated Troponin Type II MD Troponin was found incidentally to be mildly [...] Tab.Chew PO 08/28/25 08:59 Not Given QAM [facility] Atorvastatin Calcium 80 mg 08/28/24 21:00 Atorvastatin 80 Mg Tablet PO 08/28/25 20:59 QPM [facility] Azithromycin 250 mg 08/28/24 23:00 Azithromycin 250 Mg Tablet PO Q24H [facility] Calcium Acetate 1,334 mg 08/28/24 12:00 08/28/24 16:17 Calcium Acetate 667 Mg Capsule PO 08/28/25 11:59 1,334 mg TID.WITH.MEALS [facility] Administration Carvedilol 25 mg 08/28/24 08:00 08/28/24 16:17 Carvedilol 25 Mg Tablet PO 08/28/25 07:59 25 mg BID.WITH.MEALS [facility] Administration Ceftriaxone Sodium 1 gm 08/29/24 01:00 Ceftriaxone 1 Gm/10 Ml Syringe IV-PUSH DAILY@0100 [facility] Dextrose 0 gm 08/28/24 03:23 Dextrose 50% In Water 25 Gm/50 Ml Syringe IV-PUSH 08/28/25 03:22 PRN PRN Hypoglycemia Epoetin Alexus 10,000 unit 08/28/24 09:00 08/28/24 10:44 Epoetin Alexus (Esrd Use) 20,000 Unit/Ml Vial IV-PUSH 08/28/25 08:59 10,000 unit MoWeFr@0900 [facility] Administration Protocol Furosemide 80 mg 08/28/24 08:00 08/28/24 16:17 Furosemide 80 Mg Tablet PO 08/28/25 07:59 80 mg BID@0800,1600 [facility] Administration Glucose 0 gm 08/28/24 03:23 Dextrose [...] Tablet PO 08/28/25 08:59 Not Given BID [facility] Sodium Chloride 1,000 mls @ 0 mls/hr 08/28/24 08:49 08/28/24 10:45 0.9% Sodium Chloride 1,000 Ml MISCELLANE 08/28/25 08:48 Infused .Q0M PRN Infusion Dialysis As Directed Insulin Aspart 0 units 08/28/24 08:00 08/28/24 16:41 Insulin Aspart 300 Units/3 Ml SUBCUT 08/28/25 07:59 Not Given TID.WM.HS [facility] Protocol Insulin Glargine 20 units 08/28/24 09:00 08/28/24 08:46 Insulin Glargine 300 Units/3 Ml Insuln.Pen SUBCUT 08/28/25 08:59 20 units DAILY [facility] Administration Isosorbide Mononitrate 60 mg 08/28/24 09:00 08/28/24 08:46 Isosorbide Mononitrate 24hr Er 60 Mg Tab.Er.24h PO 08/28/25 08:59 60 mg BID [facility] Administration Lisinopril 20 mg 08/28/24 09:00 08/28/24 08:58 Lisinopril 20 Mg Tablet PO 08/28/25 08:59 Not Given DAILY [facility] Nitroglycerin 0.4 mg 08/28/24 04:54 Nitroglycerin 0.4 Mg Tab.Subl SUBLINGUAL 08/28/25 04:53 Q5MIN.X3 PRN Chest Pain Pantoprazole Sodium 40 mg 08/28/24 09:00 08/28/24 08:46 Pantoprazole 40 Mg Tablet.Dr PO 08/28/25 08:59 40 mg BID [facility] Administration Paricalcitol 5 mcg 08/28/24 09:00 08/28/24 10:43 Paricalcitol 10 Mcg/2 Ml Vial IV-PUSH 08/28/25 08:59 5 mcg MoWeFr@0900 [facility] Administration Saccharomyces Boulardii 250 mg 08/28/24 08:00 [...] Cano MD 08/28/24 171 Signed By: 08/29/[address] [place], [place] 1178601-10-2025 Consult note Author Angel Mejía [facility] Note Date/Time August 28, 2024 1 2:33pm [facility] [address] [place] [address] Nephrology Consult Note Signed Patient: Yoel Werner MR#: [id number] : 1985 Acct:[id number] Age/Sex: 39 / M Adm Date: 5 Loc: Room: [address] [place] [address] Type: ADM IN Attending Dr: Law Cano [...] hypertensive nephrosclerosis. [facility] [...] polydipsia Dermatological: denies any itching or rash [facility] Medical History Wellness examination Hypertensive CKD, ESRD [...] Confirmed 08/28/24] 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 meter,continuous (FreeStyle Ramy 3 De Pere) #1 ea 03/02/24 [Rx Confirmed 08/28/24] 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 meter,continuous (FreeStyle Ramy 3 De Pere) #1 ea 03/19/24 [Rx Confirmed 08/28/24] omeprazole [...] 3 Ml Ampul.Neb) 3 ml INHALATION QID.RESP [facility] Stop: 08/28/25 07:59 Last Admin: 08/28/24 09:19 Dose: 3 ml Amlodipine Besylate (Amlodipine 2.5 Mg Tablet) 2.5 mg PO DAILY [facility] Stop: 08/28/25 08:59 Last Admin: 08/28/24 08:57 Dose: Not Given Aspirin (Aspirin 81 Mg Tab.Chew) 81 mg PO QAM [facility] Stop: 08/28/25 08:59 Last Admin: 08/28/24 08:57 Dose: Not Given Atorvastatin Calcium (Atorvastatin 80 Mg Tablet) 80 mg PO QPM [facility] Stop: 08/28/25 20:59 Azithromycin (Azithromycin 250 Mg Tablet) 250 mg PO Q24H [facility] Calcium Acetate (Calcium Acetate 667 Mg Capsule) 1,334 mg PO TID.WITH.MEALS [facility] Stop: 08/28/25 11:59 Carvedilol (Carvedilol 25 Mg Tablet) 25 mg PO BID.WITH.MEALS [facility] Stop: 08/28/25 07:59 Last Admin: 08/28/24 07:50 Dose: 25 mg Ceftriaxone Sodium (Ceftriaxone 1 Gm/10 Ml Syringe) 1 gm IV-PUSH DAILY@0100 [facility] Dextrose (Dextrose 50% In Water 25 Gm/50 Ml Syringe) 0 gm IV-PUSH PRN PRN PRN Reason: Hypoglycemia Stop: 08/28/25 03:22 Epoetin Alexus (Epoetin Alexus (Esrd Use) 20,000 Unit/Ml Vial) 10,000 unit IV-PUSH MoWeFr@0900 [facility]; Protocol Stop: 08/28/25 08:59 Last Admin: 08/28/24 10:44 Dose: 10,000 unit Furosemide (Furosemide 80 Mg Tablet) 80 mg PO BID@0800,1600 [facility] Stop: 08/28/25 07:59 Last Admin: 08/28/24 07:51 [...] 50 Mg Tablet) 100 mg PO BID [facility] Stop: 08/28/25 08:59 Last Admin: 08/28/24 08:57 Dose: Not Given Sodium Chloride (0.9% Sodium Chloride 1,000 Ml) 1,000 mls @ 0 mls/hr MISCELLANE.Q0M PRN PRN Reason: Dialysis Stop: 08/28/25 08:48 Last Infusion: 08/28/24 10:45 Dose: Infused Insulin Aspart (Insulin Aspart 300 Units/3 Ml) 0 units SUBCUT TID.WM.[facility]; Protocol Stop: 08/28/25 07:59 Last Admin: 08/28/24 07:53 Dose: 4 units Insulin Glargine (Insulin Glargine 300 Units/3 Ml Insuln.Pen) 20 units SUBCUT DAILY [facility] Stop: 08/28/25 08:59 Last Admin: 08/28/24 08:46 Dose: 20 units Isosorbide Mononitrate (Isosorbide Mononitrate 24hr Er 60 Mg Tab.Er.24h) 60 mg PO BID [facility] Stop: 08/28/25 08:59 Last Admin: 08/28/24 08:46 Dose: 60 mg Lisinopril (Lisinopril 20 Mg Tablet) 20 mg PO DAILY [facility] Stop: 08/28/25 08:59 Last Admin: 08/28/24 08:58 Dose: Not Given Nitroglycerin (Nitroglycerin 0.4 Mg Tab.Subl) 0.4 mg SUBLINGUAL Q5MIN.X3 PRN PRN Reason: Chest Pain Stop: 08/28/25 04:53 Pantoprazole Sodium (Pantoprazole 40 Mg Tablet.Dr) 40 mg PO BID [facility] Stop: 08/28/25 08:59 Last Admin: 08/28/24 08:46 Dose: 40 mg Paricalcitol (Paricalcitol 10 Mcg/2 Ml Vial) 5 mcg IV-PUSH MoWeFr@0900 [facility] Stop: 08/28/25 08:59 Last Admin: 08/28/24 10:43 Dose: 5 mcg Saccharomyces Boulardii (Saccharomyces Boulardii 250 Mg Capsule) 250 mg PO BID.WITH.MEALS [facility] Stop: 08/28/25 07:59 Last Admin: 08/28/24 07:50 Dose: 250 mg Sertraline HCl (Sertraline 100 Mg Tablet) 100 mg PO DAILY [facility] Stop: 08/28/25 08:59 Last Admin: 08/28/24 08:58 [...] Skin: No rashes , warm to touch TEST DESK TROUBLE LOCATOR: Awake,Alert, following simple command Musculoskeletal: No swelling [...] Trenton Salinas M.D.08/27/2024 11:57 PM Dictation Location: [place] [address] Any impression(s) listed above is documentation that [...] and hypertensive nephrosclerosis. Currently goes to the [facility] 3 times a week on MWF [...] <Electronically signed by Angel Mejía MD> 08/28/[address] [place] [address] Work Phone: [phone] [place] [address] Nephrology Consult Note Signed Patient: Yoel Werner MR#: [id number] : 1985 Acct:[id number] Age/Sex: 39 / M Adm Date: 5 Loc: Room: [address] [place] [address] Type: ADM IN Attending Dr: Law Cano MD Copies to: MD Eusebio Castellano DO Marwan Wassouf, MD~ Providers Consult Date: 08/28/24 Requesting Provider: Law Cano MD Primary Care Provider: Eusebio Olivares DO [facility] Reason for Consult: ESRD management History of [...] hypertensive nephrosclerosis. [facility] [...] polydipsia Dermatological: denies any itching or rash [facility] Medical History Wellness examination Hypertensive CKD, ESRD [...] Meds Medications & Allergies Allergies ticagrelor (From [employer]) Allergy (Verified 08/28/24 07:57) shortness of breath [...] Confirmed 08/28/24] 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 meter,continuous (FreeStyle Ramy 3 De Pere) #1 ea 03/02/24 [Rx Confirmed 08/28/24] 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 meter,continuous (FreeStyle Ramy 3 De Pere) #1 ea 03/19/24 [Rx Confirmed 08/28/24] omeprazole [...] 3 Ml Ampul.Neb) 3 ml INHALATION QID.RESP [facility] Stop: 08/28/25 07:59 Last Admin: 08/28/24 09:19 Dose: 3 ml Amlodipine Besylate (Amlodipine 2.5 Mg Tablet) 2.5 mg PO DAILY [facility] Stop: 08/28/25 08:59 Last Admin: 08/28/24 08:57 Dose: Not Given Aspirin (Aspirin 81 Mg Tab.Chew) 81 mg PO QAM [facility] Stop: 08/28/25 08:59 Last Admin: 08/28/24 08:57 Dose: Not Given Atorvastatin Calcium (Atorvastatin 80 Mg Tablet) 80 mg PO QPM [facility] Stop: 08/28/25 20:59 Azithromycin (Azithromycin 250 Mg Tablet) 250 mg PO Q24H [facility] Calcium Acetate (Calcium Acetate 667 Mg Capsule) 1,334 mg PO TID.WITH.MEALS [facility] Stop: 08/28/25 11:59 Carvedilol (Carvedilol 25 Mg Tablet) 25 mg PO BID.WITH.MEALS [facility] Stop: 08/28/25 07:59 Last Admin: 08/28/24 07:50 Dose: 25 mg Ceftriaxone Sodium (Ceftriaxone 1 Gm/10 Ml Syringe) 1 gm IV-PUSH DAILY@0100 [facility] Dextrose (Dextrose 50% In Water 25 Gm/50 Ml Syringe) 0 gm IV-PUSH PRN PRN PRN Reason: Hypoglycemia Stop: 08/28/25 03:22 Epoetin Alexus (Epoetin Alexus (Esrd Use) 20,000 Unit/Ml Vial) 10,000 unit IV-PUSH MoWeFr@0900 [facility]; Protocol Stop: 08/28/25 08:59 Last Admin: 08/28/24 10:44 Dose: 10,000 unit Furosemide (Furosemide 80 Mg Tablet) 80 mg PO BID@0800,1600 [facility] Stop: 08/28/25 07:59 Last Admin: 08/28/24 07:51 [...] 50 Mg Tablet) 100 mg PO BID [facility] Stop: 08/28/25 08:59 Last Admin: 08/28/24 08:57 Dose: Not Given Sodium Chloride (0.9% Sodium Chloride 1,000 Ml) 1,000 mls @ 0 mls/hr MISCELLANE.Q0M PRN PRN Reason: Dialysis Stop: 08/28/25 08:48 Last Infusion: 08/28/24 10:45 Dose: Infused Insulin Aspart (Insulin Aspart 300 Units/3 Ml) 0 units SUBCUT TID.WM.HS [facility]; Protocol Stop: 08/28/25 07:59 Last Admin: 08/28/24 07:53 Dose: 4 units Insulin Glargine (Insulin Glargine 300 Units/3 Ml Insuln.Pen) 20 units SUBCUT DAILY [facility] Stop: 08/28/25 08:59 Last Admin: 08/28/24 08:46 Dose: 20 units Isosorbide Mononitrate (Isosorbide Mononitrate 24hr Er 60 Mg Tab.Er.24h) 60 mg PO BID [facility] Stop: 08/28/25 08:59 Last Admin: 08/28/24 08:46 Dose: 60 mg Lisinopril (Lisinopril 20 Mg Tablet) 20 mg PO DAILY [facility] Stop: 08/28/25 08:59 Last Admin: 08/28/24 08:58 Dose: Not Given Nitroglycerin (Nitroglycerin 0.4 Mg Tab.Subl) 0.4 mg SUBLINGUAL Q5MIN.X3 PRN PRN Reason: Chest Pain Stop: 08/28/25 04:53 Pantoprazole Sodium (Pantoprazole 40 Mg Tablet.Dr) 40 mg PO BID [facility] Stop: 08/28/25 08:59 Last Admin: 08/28/24 08:46 Dose: 40 mg Paricalcitol (Paricalcitol 10 Mcg/2 Ml Vial) 5 mcg IV-PUSH MoWeFr@0900 [facility] Stop: 08/28/25 08:59 Last Admin: 08/28/24 10:43 Dose: 5 mcg Saccharomyces Boulardii (Saccharomyces Boulardii 250 Mg Capsule) 250 mg PO BID.WITH.MEALS [facility] Stop: 08/28/25 07:59 Last Admin: 08/28/24 07:50 Dose: 250 mg Sertraline HCl (Sertraline 100 Mg Tablet) 100 mg PO DAILY [facility] Stop: 08/28/25 08:59 Last Admin: 08/28/24 08:58 [...] Skin: No rashes , warm to touch TEST DESK TROUBLE LOCATOR: Awake,Alert, following simple command Musculoskeletal: No swelling [...] Trenton Salinas M.D.08/27/2024 11:57 PM Dictation Location: [place] [address] Any impression(s) listed above is documentation that [...] and hypertensive nephrosclerosis. Currently goes to the [facility] 3 times a week on MWF [...] Mejía MD 08/28/24 1111 Signed By: 08/28/[address] [place], [place] 6380101-10-2025 History and physical note Author Brigid Anderson [facility] Note Date/Time August 28, 2024 4 :58am [facility] [address] [place] [address] Hospitalist H&P Signed Patient: Yoel Werner MR#: [id number] : 1985 Acct:[id number] Age/Sex: 39 / M Adm Date: 5 Loc: Room: [address] [place] [address] Type: ADM IN Attending Dr: Dwayne Little DO Copies to: Eusebio Ball,DO Dwayne Little, DO Brigid Anderson, JOSH~ HPI DATE OF EXAMINATION: 08/28/24 CHIEF COMPLAINT: coughing up blood HISTORY OF PRESENT ILLNESS: Mr. Werner is a 39-year-old male with a PMH of ESRD on HD?M/W/F, AV fistula to the left arm, MD, 5 cardiac stents, combined systolic and diastolic [...] twice a day. States he follows with [facility] to provide for pancreas and kidney transplant. [...] will be admitted as inpatient to the [facility] telemetry floor. Review of Systems Review of Systems Review of systems: A 10 point review of systems was obtained, negative unless noted in the HPI or below. [facility] Medical History Wellness examination Hypertensive CKD, ESRD [...] Confirmed 06/22/24] 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 meter,continuous (FreeStyle Ramy 3 De Pere) #1 ea 03/02/24 [Rx Confirmed 06/22/24] 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 meter,continuous (FreeStyle Ramy 3 De Pere) #1 ea 03/19/24 [Rx Confirmed 06/22/24] albuterol [...] % (Auto) 18.3 % (.) 08/27/24 23:42 Winkler % (Auto) 7.4 % (.) 08/27/24 23:42 Eos % (Auto) 3.1 % (.) 08/27/24 23:42 Baso % (Auto) 1.2 % (.) 08/27/24 23:42 Nucleat RBC Rel Count 0.0 /100 WBC (0-0.5) 08/27/24 23:42 Neut # (Auto) 4.5 x10E3/uL (1.8-7.7) 08/27/24 23:42 Lymph # (Auto) 1.2 x10E3/uL (1.00-4.8) 08/27/24 23:42 Winkler # (Auto) 0.5 x10E3/uL (0.0-0.8) 08/27/24 23:42 [...] ESRD on HD- consult nephrology, dialysis schedule //, reported he signed up for an extra [...] <Electronically signed by Dwayne Little DO> 08/28/24 3467 [facility] Work Phone: 1([phone] 382-248101-10-2025 History and physical [place] [id number] Hospitalist H&P Signed Patient: Yoel Werner MR#: [id number] : 1985 Acct:[id number] Age/Sex: 39 / M Adm Date: 5 Loc: Room: [address] [place] [address] Type: ADM IN Attending Dr: Dwayne Little DO Copies to: Eusebio Olivares,DO Dwayne Little, DO Brigid Anderson, AMUSEMENT MACHINE MECHANIC~ HPI DATE OF EXAMINATION: 08/28/24 CHIEF COMPLAINT: coughing up blood HISTORY OF PRESENT ILLNESS: Mr. Werner is a 39-year-old male with a PMH of ESRD on HD?M/W/F, AV fistula to the left arm, MD,5 cardiac stents, combined systolic and diastolic heart [...] twice a day. States he follows with [facility] to provide for pancreas and kidney transplant. [...] will be admitted as inpatient to the [facility] telemetry floor. Review of Systems Review of Systems Review of systems: A 10 point review of systems was obtained, negative unless noted in the HPI or below. [facility] Medical History Wellness examination Hypertensive CKD, ESRD [...] Confirmed 06/22/24] 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 meter,continuous (FreeStyle Ramy 3 De Pere) #1 ea 03/02/24 [Rx Confirmed 06/22/24] 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 meter,continuous (FreeStyle Ramy 3 De Pere) #1 ea 03/19/24 [Rx Confirmed 06/22/24] albuterol [...] % (Auto) 18.3 % (.) 08/27/24 23:42 Winkler % (Auto) 7.4 % (.) 08/27/24 23:42 Eos % (Auto) 3.1 % (.) 08/27/24 23:42 Baso % (Auto) 1.2 % (.) 08/27/24 23:42 Nucleat RBC Rel Count 0.0 /100 WBC (0-0.5) 08/27/24 23:42 Neut # (Auto) 4.5 x10E3/uL (1.8-7.7) 08/27/24 23:42 Lymph # (Auto) 1.2 x10E3/uL (1.00-4.8) 08/27/24 23:42 Winkler # (Auto) 0.5 x10E3/uL (0.0-0.8) 08/27/24 23:42 [...] ESRD on HD- consult nephrology, dialysis schedule M/W/, reported he signed up for an extra [...] (# of days): 3 Documented By: Brigid Anderson, AMUSEMENT MACHINE MECHANIC 08/28/24 0253 Signed By: 08/28/24 0331 08/28/24 0458 [facility]01-10-2025 Evaluation note* Diagnosis Onset Date Resolution [...] 1:09am ASHD (arteriosclerotic heart disease) acute October 14, 12:55pm Primary hypertension acute 2024 12:55pm [facility] Work Phone: 1(630) 244-456701-10-2025 Evaluation note* Diagnosis Onset Date Resolution Status Admit Date Acute bacterial bronchitis resolved August 28, 2024 1:27am Anemia of renal disease resolved J an2024 1:27am Cough with hemoptysis resolved Aug 1:27am [...] 12:55pm Nicotine addiction deleted 2024 12:55pm [facility] Work Phone: 1(357) 999-338801-10-2025 Evaluation note* Diagnosis Onset Date Resolution Status [...] deleted September 02 1:01pm Nicotine addiction deleted Auguar y 2024 1:01pm Anemia of renal disease resolved J anuary 2024 1:09am CAP (community acquired pneumonia) resolved September 16 1:09am Constipation resolved August 1:09am COVID-19 resolved September 16, 2024 1:09am ESRD on hemodialysis resolved Lonnie [email or web address] 1:09am Hypertensive CKD, ESRD on dialysis resolved [...] 10:56pm Uremia acute November 01 10:56pm [facility] Work Phone: 1(112) 513-980701-10-2025 Evaluation note* Diagnosis Onset Date Resolution Status [...] dialysis deleted November 01, 2024 10:56pm [facility] Work Phone: 1(770) 399-492612-30-2024 NotePatient was a No-Show for his 3pm echo. [facility]12-26-2024 NoteUT Cardiology - [facility] Subjective Yoel Werner is a 39 y.o. year old male patient being seen for Cardiac evaluation for renal transplant (PYROMETER TEMPERATURE REGULATOR evaluation w/ no testing) Patient Active Problem List Diagnosis Acute hypoxic respiratory failure (CMS/HCC) Acute metabolic encephalopathy Anasarca Anemia in chronic kidney disease Coronary artery disease involving [place] coronary artery of [place] heart without angina pectoris AV fistula stenosis (CMS/HCC) BMI 21.0-21.9, adult Chest pain CHF (congestive heart failure) (CMS/HCC) Chronic bronchitis, mucopurulent (CMS/HCC) Chronic venous insufficiency Cigarette nicotine dependence without complication Current every day smoker Diabetes mellitus (CMS/HCC) Encephalopathy Erectile dysfunction due to arterial insufficiency End stage renal disease (CMS/HCC) Hypertension, essential EBENEZER (generalized anxiety disorder) HCAP (healthcare-associated pneumonia) History of MD (myocardial infarction) Hyperkalemia Hyperlipidemia Hypertensive emergency Hypoxemia [...] Paternal Grandmother Coronary artery disease Paternal Grandfather ROBERTO Werner is seen as a new patient [...] , Rfl: Accu-Chek Guide (more content not included)...[facility]12-19-2024 NoteNotified coordinator Vik Dan, patent is ok for kidney/pancreas evaluationUn[facility] NoteI saw the patient in clinic. [...] and patient financial responsibility forms they signed. [facility]11-26-2024 NoteTransplant Nutrition Assessment Name: Yoel Werner : 1985 Assessment date: 07/14/2024 PMH: ischemic cardiomyopathy, DM, anasarca, anemia, ESRD, MD, HLD, HTN. Dialysis HX: on HD Height: [...] PCP manages, he does not have an company pilot. Diet Recall Breakfast: Skips Lunch: Snacks on [...] Appears in adequate in protein. Reported Medications/Supplements: [employer] Nutrition Labs: phos 4.2, states albumin is [...] feeling low. Does not follow with an company pilot. -Patient has questionable compliance issues. -RD discussed the importance of good blood sugar control for the success of his kidney transplant and he needs to follow a diabetic diet. Discussed eating three meals daily, including more protein sources, fruits and vegetables. Patient was not interested in diet education. -Recommend checking an A1C, consider referral to an company pilot. -Consider referral to a GI doctor due to chronic constipation and frequent vomiting to rule out gastroparesis. Mary Sullivan RDKettering Health [facility]ble11-26-2024 NotePre- Transplant Kidney Evaluation Surgery Consultation Chief Complaint Patient presents with Kidney Eval PCP: Eusebio Olivares DO Txp Referring: Nancy Haas MD Preferred Pharmacy: [facility]/pharmacy #[id number] [place] [address] Organ: Kidney Subjective Visit Vitals BP 127/74 (BP Location: Right arm, Patient Position: Sitting, BP Cuff Size: Adult) Pulse 72 Resp 17 Ht 1.854 m (6' 1 ) Wt 71.7 kg (158 lb) SpO2 99% BMI 20.85 kg/m??? BSA 1.92 m??? Allergies Allergen Reactions Ticagrelor Shortness of breath Medication Documentation Review Audit Reviewed by Lesa Hurt MA (Vehicle Calibration Engineer) on 07/14/24 at 0854 Medication Order Taking? Sig Documenting Provider Last Dose Status Accu-Chek Guide Me Glucose Mtr misc [id number] Yes See administration instructions. Historical Provider, Taking Active Accu-Chek Guide test strips strip [id number] Yes USE TO TEST FOUR TIMES A DAY DIRECTED Historical Provider, Taking Active Accu-Chek Softclix Lancets misc [id number] Yes USE TO TEST BLOOD SUGAR TWICE DAILY Historical Provider, Taking Active albuterol 90 mcg/actuation inhaler [id number] Yes 2 puffs. Historical Provider, Taking Active aluminum sulfate-calcium acetate (Domeboro) 952-1,347 mg packet [id number] Yes 1,334 mg. Historical Provider, Taking Active amLODIPine (Norvasc) 2.5 mg tablet [id number] Yes Take 2.5 mg by mouth in the morning. Historical Provider, Taking Active aspirin 81 mg chewable tablet [id number] Yes 81 mg. Historical Provider, Taking Active atorvastatin (Lipitor) 80 mg tablet [id number] Yes 80 mg. Historical Provider, Taking Active azithromycin (Zithromax) 250 mg tablet [id number] No TAKE 2 TABLETS BY MOUTH TODAY, THEN TAKE 1 TABLET DAILY FOR 4 DAYS DIRECTED Historical ProviderMD Not Taking Active brimonidine (Alphagan) 0.2 % ophthalmic solution [id number] No Administer 1 drop into affected eye(s) 3 times a day. Historical ProviderMD Not Taking Active calcium acetate (Phoslo) 667 mg capsule [id number] Yes Take 1,334 mg by mouth. Historical Provider, Taking Active carvedilol (Coreg) 25 mg tablet [id number] Yes Take 25 mg by mouth with breakfast and with evening meal. Historical Provider, Taking Differently Active clindamycin (Cleocin) 150 mg capsule [id number] No TAKE 4 CAPSULES BY MOUTH 1 HOUR PRIOR TO APPOINTMENT Historical ProviderMD Not Taking Active clopidogrel (Plavix) 75 mg tablet [id number] Yes Take 75 mg by mouth in the morning. Historical ProviderMD Taking Active Dexcom G6 Sensor device [id number] No CHANGE SENSOR EVERY 10 DAYS. ICD 10 E10.65 Historical ProviderMD Not Taking Active Dexcom G6 Transmitter device [id number] No CHANGE EVERY 90 DAYS DX E10.65 Historical ProviderMD Not Taking Active diclofenac (Voltaren) 1 % topical gel [id number] Yes Apply 2 g topically 3 times a day. Historical ProviderMD Taking Active dorzolamide HCl/PF (dorzolamide, PF,) 2 % drops [id number] No Administer 1 drop into affected eye(s) 3 times a day. Historical ProviderMD Not Taking Active ergocalciferol (Vitamin D-2) 1.25 MG (97792 Units) capsule [id number] No Take 1 capsule by mouth. Historical ProviderMD Not Taking Active escitalopram (Lexapro) 10 mg tablet [id number] No Take 10 mg by mouth. Historical Provider, Not Taking Active famotidine (Pepcid) 20 mg tablet [id number] Yes .COMPLEX Historical ProviderMD Taking Active ferric gluconate (Ferrlecit) 62.5 mg/5 mL injection [id number] No Infuse 62.5 mg into a venous catheter. Historical Provider, Not Taking Active furosemide (Lasix) 40 mg tablet [id number] Yes Take 80 mg by mouth two times daily. Historical Provider, Taking Differently Active GaviLyte-G 236-22.74-6.74 -5.86 gram solution [id number] No TAKE 240 ML EVERY 10 MINUTES UNTIL FECAL EFFLUENT IS CLEAR Historical ProviderMD Not Taking Active heparin sodium,porcine/PF (heparin, porcine, PF,) 1,000 unit/mL solution [id number] Yes Infuse 1,000 Units into a venous catheter. Historical Provider, Taking Active hydrALAZINE (Apresoline) 50 mg tablet [id number] Yes Take 100 mg by mouth two times daily. Historical Provider, Taking Differently Active hydrOXYzine HCL (Atarax) 25 mg tablet [id number] Yes Take 25 mg by mouth. Historical Provider, Taking Active hyoscyamine (Anaspaz,Levsin) 0.125 mg tablet [id number] No TAKE 1 TABLET BY MOUTH EVERY 6 HOURS NEEDED FOR ABDOMINAL PAIN Historical ProviderMD Not Taking Active insulin glargine (Lantus) 100 unit/mL (3 mL) injection pen [id number] Yes Inject 20 Units under the skin in the morning. Historical ProviderMD Taking Active insulin lispro (HumaLOG) 100 unit/mL injection pen [id number] Yes Inject 4 times a day before meals & bedtime. [id number]; 170-189=3units; 190-209=4units; 210-229=6units; 230-249=8units; 250-269=9units; 270-289=10units; 290-30 (more content not included)...[facility]11-26-2024 NotePre-Transplant Evaluation Nephrology Consult Chief Complaint Patient presents with Kidney Eval PCP: DO Paras Leblancp Referring: Nancy Haas MD Preferred Pharmacy: [facility]/pharmacy #[id number] AT [place] [place] [facility] [address] [facility] [address] Organ: Kidney Subjective Visit Vitals BP 127/74 (BP Location: Right arm, Patient Position: Sitting, BP Cuff Size: Adult) Pulse 72 Resp 17 Ht 1.854 m (6' 1 ) Wt 71.7 kg (158 lb) SpO2 99% BMI 20.85 kg/m??? BSA 1.92 m??? Allergies Allergen Reactions Ticagrelor Shortness of breath Medication Documentation Review Audit Reviewed by Lesa Hurt MA (Vehicle Calibration Engineer) on 07/14/24 at 0854 Medication Order Taking? Sig Documenting Provider Last Dose Status Accu-Chek Guide Me Glucose Mtr [facility] [id number] Yes See administration instructions. Historical Provider, Taking Active Accu-Chek Guide test strips strip [id number] Yes USE TO TEST FOUR TIMES A DAY DIRECTED Historical Provider, Taking Active Accu-Chek Softclix Lancets mis [id number] Yes USE TO TEST BLOOD SUGAR TWICE DAILY Historical Provider, Taking Active albuterol 90 mcg/actuation inhaler [id number] Yes 2 puffs. Historical Provider, Taking Active aluminum sulfate-calcium acetate (Domeboro) 952-1,347 mg packet [id number] Yes 1,334 mg. Historical Provider, Taking Active amLODIPine (Norvasc) 2.5 mg tablet [id number] Yes Take 2.5 mg by mouth in the morning. Historical Provider, Taking Active aspirin 81 mg chewable tablet [id number] Yes 81 mg. Historical Provider, Taking Active atorvastatin (Lipitor) 80 mg tablet [id number] Yes 80 mg. Historical Provider, Taking Active azithromycin (Zithromax) 250 mg tablet [id number] No TAKE 2 TABLETS BY MOUTH TODAY, THEN TAKE 1 TABLET DAILY FOR 4 DAYS DIRECTED Historical Provider, Not Taking Active brimonidine (Alphagan) 0.2 % ophthalmic solution [id number] No Administer 1 drop into affected eye(s) 3 times a day. Historical Provider, Not Taking Active calcium acetate (Phoslo) 667 mg capsule [id number] Yes Take 1,334 mg by mouth. Historical Provider, Taking Active carvedilol (Coreg) 25 mg tablet [id number] Yes Take 25 mg by mouth with breakfast and with evening meal. Historical ProviderMD Taking Differently Active clindamycin (Cleocin) 150 mg capsule [id number] No TAKE 4 CAPSULES BY MOUTH 1 HOUR PRIOR TO APPOINTMENT Lexis Ralph MD Not Taking Active clopidogrel (Plavix) 75 mg tablet [id number] Yes Take 75 mg by mouth in the morning. Lexis Ralph MD Taking Active Dexcom G6 Sensor device [id number] No CHANGE SENSOR EVERY 10 DAYS. ICD 10 E10.65 Historical MD Ramo Not Taking Active Dexcom G6 Transmitter device [id number] No CHANGE EVERY 90 DAYS DX E10.65 Historical MD Ramo Not Taking Active diclofenac (Voltaren) 1 % topical gel [id number] Yes Apply 2 g topically 3 times a day. Historical MD Ramo Taking Active dorzolamide HCl/PF (dorzolamide, PF,) 2 % drops [id number] No Administer 1 drop into affected eye(s) 3 times a day. Historical MD Ramo Not Taking Active ergocalciferol (Vitamin D-2) 1.25 MG (93300 Units) capsule [id number] No Take 1 capsule by mouth. Historical ProviderMD Not Taking Active escitalopram (Lexapro) 10 mg tablet [id number] No Take 10 mg by mouth. Historical MD Ramo Not Taking Active famotidine (Pepcid) 20 mg tablet [id number] Yes .COMPLEX Historical MD Ramo Taking Active ferric gluconate (Ferrlecit) 62.5 mg/5 mL injection [id number] No Infuse 62.5 mg into a venous catheter. Lexis Ralph MD Not Taking Active furosemide (Lasix) 40 mg tablet [id number] Yes Take 80 mg by mouth two times daily. Historical ProviderMD Taking Differently Active GaviLyte-G 236-22.74-6.74 -5.86 gram solution [id number] No TAKE 240 ML EVERY 10 MINUTES UNTIL FECAL EFFLUENT IS CLEAR Historical MD Ramo Not Taking Active heparin sodium,porcine/PF (heparin, porcine, PF,) 1,000 unit/mL solution [id number] Yes Infuse 1,000 Units into a venous catheter. Lexis Ralph MD Taking Active hydrALAZINE (Apresoline) 50 mg tablet [id number] Yes Take 100 mg by mouth two times daily. Historical ProviderMD Taking Differently Active hydrOXYzine HCL (Atarax) 25 mg tablet [id number] Yes Take 25 mg by mouth. Historical Provider, Taking Active hyoscyamine (Anaspaz,Levsin) 0.125 mg tablet [id number] No TAKE 1 TABLET BY MOUTH EVERY 6 HOURS NEEDED FOR ABDOMINAL PAIN Historical Provider, Not Taking Active insulin glargine (Lantus) 100 unit/mL (3 mL) injection pen [id number] Yes Inject 20 Units under the skin in the morning. Historical Provider, Taking Active insulin lispro (HumaLOG) 100 unit/mL injection pen [id number] Yes Inject 4 times a day before meals & bedtime. [id number]; 170-189=3units; 190-209=4units; 210-229=6units; 230-249=8units; 250-269=9units; 270-289=10units; 290-300=12units (more content not included)...[facility]11-26-2024 NoteIdentifying Information Name: Yoel Werner : 1985 Assessment date: 07/14/2024 Transplant type: Kidney Transplant Evaluation - 07/14/2024 Primary language: Panamanian Amish/spirituality: Yarsanism People present at assessment: none Do you have any zoroastrian, ethical or personal objections to accepting blood products, surgery and/or transplant? No Citizenship Where were you born? In the [place] in [facility] Where do you currently live or are staying? [facility] Is this greater than 3-4 hours from [facility]? No. 1 H Family Background and Supportive Relationships Mother: COD: morel cancer Father: 60 Healthy Siblings: Sister: healthy Children: Biological 4 Bio 1 adoptive 1 passed Number of children, living or (UNOS question): 6 Names, age, health status, relationship, address: [place], 13, healthy, daughter, Óscar Ortizella, 12, healthy, daughter, Óscar Kuldeep, 10, healthy, son, Óscar Mg, 9, son, Óscar- he was a twin Adoptive son Jet- 6, son, Marital/relationship status: for 2 years Household composition: Patient Are there any current or past significant life changes or traumatic events? No, mom passing and son passing. Support / Caregiver Plans Who will be your primary caregiver? 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 mother and/or father Jake Contact #: [phone] Health status & availability: Healthy, retired, able [...] Group # [employer]ICARE AD[facility]AN* YOEL WERNER [id number] [id number] [address] MEDICAID [facility]* YOEL WERNER Self [id number] [address] Are you aware of a coordination of benefits with your insurance and Medicare (if applicable)? yes Are you receiving assistance through [employer] [facility] JANAE Program: No Medication Coverage [...] History Start End Type Center Comments 03[facility]01/2023 [facility] Dialysis Center Information [facility] Address: [address] [place] [address], [place] [address] Dialysis Schedule: MWF, 7AM, 3.5, 2-4K Treatment Compliance / Adherence How do you manage your medications now? Memory and Pillbox Patient fills Do you have any difficulties in getting or taking your medications? None as long ist in stock. Having issues with bloodsugars and dexcom. Do you know what you take (more content not included)...[facility]11-26-2024 [id number] Yoel Werner 1985 M Date Provider Department Center 07/14/2024 YESIKA HERNANDEZ TXDianna None No family history on file Level of Service:34963 [place] OFFICE/OUTPATIENT [facility] 60 MINUTES Reason for Visit and Comments: Kidney Eval [[id number]][facility]11-26-2024 Note Coordinator met with patient for initial transplant evaluation appointment in Transplant clinic today. Explained transplant process and consents with patient. Answered patient questions. Social work, finance and mamma logist in to see patient. Dr. Charles in for H&P and transplant plan. Dr. Cardenas in for surgical evaluation. Coordinator provided copy of plan to patient and reviewed it with them. Patient aware further testing needed and to keep transplant team updated. Understanding verbalized by patient. Data Conversion Operator provided verbal order for patient labs and CT scan today. Work-up Needed-Date of Eval Letter Mailed to patient and faxed to Data Conversion Operator/ Dialysis Center. Grinding Mill Operator provided patient TE folder with education on various transplant consents, the workup process, surgery details, postop expectations, transplant statistics, and living donor information. Answered patient questions and verified understanding. [facility]11-26-2024 NoteCLINICAL INFORMATION: Renal failure. Transplant evaluation. Diabetes. [...] low as reasonably achievable. Electronically signed: REINA THOMAS.[facility] 06-22-2024 Evaluation note* Diagnosis Onset Date Resolution [...] Aug 1:27am ESRD on hemodialysis acute Lonnie 2024 1:27am Hypertension acute August 1:27am Pulmonary edema acute August 192024 1:27am Type 1 diabetes mellitus acute August 28, 2024 1:27am [facility] Work Phone: 1(831) 731-985411-04-2024 Evaluation note* Diagnosis Onset Date Resolution Status Admit Date End-stage renal disease (ESRD) acute June 22, 2024 12:25pm Hypertensive CKD, ESRD on dialysis a June 22, 2024 12:25pm Hypoglycemia acute June 12:25pm Hypothermia acute June 22, 2024 12:25pm Missed dialysis acute June 22, 2024 12:25pm Secondary hyperparathyroidism acute June 22, 2024 12:25pm Type 1 diabetes mellitus acute June 22, 2024 12:25pm Acute bacterial bronchitis acute August 28, 2024 1:27am Anemia of renal disease acute J anuary 2024 1:27am CAP (community acquired pneumonia) a cutAugust 28, 2024 1:27am Chronic combined systolic (congestive) and diastolic (congestive) heart failure acute 2024 1:27am Cough with hemoptysis acute Aug 1:27am ESRD on hemodialysis acute 2024 1:27am Hypertension acute August 1:27am Hypertensive CKD, ESRD on dialysis a cutAugust 28, 2024 1:27am Pulmonary edema acute August 192024 1:27am Secondary hyperparathyroidism acute August 28, 2024 1:27am Type 1 diabetes mellitus acute August 28, 2024 1:27am Type 2 diabetes mellitus wit h diabetic chronic kidney disease acute August 28, 2024 1:27am [facility] Work Phone: 1(149) 565-563611-04-2024 Evaluation note* Diagnosis Onset Date Resolution Status [...] acute Aug 1:27am ESRD on hemodialysis acute 2024 1:27am [...] 2024 1:01pm Wellness examination acute 2024 1:01pm [facility] Work Phone: 1(401) 606-981811-04-2024 Evaluation note* Diagnosis Onset Date Resolution Status [...] Secondary hyperparathyroidism acute September 16, 2024 1:09am [facility] Work Phone: 1(136) 288-753210-24-2024 History of Present illness Narrative* Brianna Gomez, DO - 06/11/2024 9:50 AM EDT Subjective Yoel Werner is a 39 y.o. male Chief Complaint Follow-up 39-year-old gentleman returns for follow-up following recent hospitalization at [facility] when he was visiting for his [...] dialysis, looking forward to kidney transplantation at [facility] in the near future. All [facility] imaging, lab studies, discharge summary, cardiology consultation and cath notes are reviewed He has a history of large anterior MD with severe three-vessel disease and eventually underwent [...] 3. Essential hypertension, benign 4. History of MD (myocardial infarction) 5. Mixed hyperlipidemia 6. Status [...] exam, discussion and plan. documented in this [facility] Work Phone: 1(635) 258-506610-24-2024 Instructions* Patient Instructions* Alana Pace LPN - [...] time of your visit. documented in this [facility] Work Phone: 1(376) 764-891910-17-2024 History of Present illness Narrative* David Berg [...] Patient has longstanding history and history of MD x2 with cardiac stents as well as multiple myeloma history. Patient also on dialysis with end-stage renal disease Allergies: No Known Allergies Past Medical History: Past Medical History: Diagnosis Date Cancer ([facility]) CHF (congestive heart failure) ([facility]) Diabetes ([facility]) End stage renal disease ([facility]) Heart attack ([facility]) Hypertension ([facility]) MGUS (monoclonal gammopathy of unknown significance) Renal [...] Rfl: 2 ergocalciferol (Vitamin D2) 1.25 MG (23282 UT) capsule, Take 1 capsule by mouth [...] NEEDED FOR NAUSEA/ VOMITING, Disp: , Rfl: Wkxignakoix-Aroonjaz-Aafgpjouy 1-0.5-0.075 % solution, Administer 1 drop into [...] Resource Strain: Low Risk (03/14/2024) Received from [facility] Overall Financial Resource Strain (CARDIA) Difficulty of Paying Living Expenses: Not hard at all Food Insecurity: No Food Insecurity (03/14/2024) Received from [facility] Hunger Vital Sign Worried About Running Out of Food in the Last Year: Never true Ran Out of Food in the Last Year: Never true Transportation Needs: No Transportation Needs (03/14/2024) Received from [facility] PRAPARE - Transportation Lack of Transportation (Medical): No Lack of Transportation (Non-Medical): No Physical Activity: Not on file Stress: Not on file Social Connections: Not on file Intimate Partner Violence: Unknown (11/26/2023) Received from [facility] [place] Safety & Environment Fear of Current or Ex-Partner: Not on file Emotionally Abused: Not on file Physically Abused: Not on file Sexually Abused: Not on file Physically or Sexually Abused: Not on file Housing Stability: Not on file ROS: General: denies fever, chills, fatigue, malaise Cardiovascular: denies CP, palpitations, irregular rhythms. Positive history of cardiac stents in [place] and on blood thinners OBJECTIVE LE EXAM: DERM: Elongated thick yellow crumbly nails digits 1 through 10. Diminished hair growth with thin shiny atrophic skin bilaterally VASC: Positive DP and positive PT pedal pulses NEURO: 5.07 Haslet Alecia monofilament test positive to digits and forefoot bilaterally 125Hz tuning fork positive to 1st MPJ bilaterally ORTHO: Positive pain on palpation to nails 1 through 10 HAV deformity left foot that is reducible ASSESSMENT 1. Type 2 diabetes mellitus without complication, with long-term current use of insulin ([facility]) 2. Pain due to onychomycosis of toenails [...] gear. David Berg DPM documented in this encounterFreeman Health [id number] Progress note Author Angel Mejía [facility] March 10, 2024 11:20am Note Date/Time March 10, 2024 11:2 0am [facility] [address] [place] [address] Nephrology Progress Note Signed Patient: DebbiYoel MR#: [id number] : 1985 Acct:[id number] Age/Sex: 39 / M Adm Date: 4 Loc: Room: 7Z4243-6 Type: ADM IN Attending Dr: Kim Renteria MD Copies to: ~ Date of Service: 03/10/2024 Subjective Subjective Narrative: This is a 39-year male with a medical history of ESRD, DM, HTN, CAD s/p PCI, anemia of renal disease and secondary hyperparathyroidism was admitted to the emergency room for shortness of breath. Patient was recently hospitalized at [facility] for shortness of breath and he [...] February 2023. He currently goes to the [facility] dialysis unit 3 times a week on [...] Skin: No rashes , warm to touch TEST DESK TROUBLE LOCATOR: Awake,Alert, following simple command Musculoskeletal: No swelling [...] 2.5 Mg Tablet) 2.5 mg PO DAILY [facility] Stop: 03/11/25 08:59 Aspirin (Aspirin 81 Mg Tablet.) 81 mg PO DAILY [facility] Stop: 03/10/25 08:59 Last Admin: 03/10/24 08:16 Dose: 81 mg Atorvastatin Calcium (Atorvastatin 80 Mg Tablet) 80 mg PO QPM [facility] Stop: 03/10/25 20:59 Calcium Acetate (Calcium Acetate 667 Mg Capsule) 1,334 mg PO TID.WITH.MEALS [facility] Stop: 03/10/25 11:59 Carvedilol (Carvedilol 25 Mg Tablet) 25 mg PO BID.WITH.MEALS [facility] Stop: 03/09/25 16:59 Last Admin: 03/10/24 08:16 Dose: 25 mg Carvedilol (Carvedilol 25 Mg Tablet) 25 mg PO BID.WITH.MEALS [facility] Stop: 03/10/25 16:59 Clopidogrel Bisulfate (Clopidogrel Bisulfate 75 Mg Tablet) 75 mg PO DAILY [facility] Stop: 03/10/25 08:59 Last Admin: 03/10/24 08:16 Dose: 75 mg Clopidogrel Bisulfate (Clopidogrel Bisulfate 75 Mg Tablet) 75 mg PO QAM [facility] Stop: 03/11/25 08:59 Dextrose (Dextrose 50% In Water 25 Gm/50 Ml Syringe) 0 gm IV-PUSH PRN PRN PRN Reason: Hypoglycemia Stop: 03/09/25 17:58 Famotidine (Famotidine 20 Mg Tablet) 20 mg PO Q48H [facility] Stop: 03/10/25 21:59 Furosemide (Furosemide 40 Mg/4 Ml Vial) 40 mg IV-PUSH BID@0800,1600 [facility] Stop: 03/10/25 08:04 Last Admin: 03/10/24 10:08 Dose: 40 mg Glucose (Dextrose 40% Gel 15 Gm Tube) 0 gm PO PRN PRN PRN Reason: Hypoglycemia Stop: 03/09/25 17:58 Guaifenesin (Guaifenesin 600 Mg Tab.Er.12h) 1,200 mg PO BID [facility] Stop: 03/10/25 20:59 Heparin Sodium (Porcine) (Heparin 10,000 Unit/10 Ml Vial) 2,000 unit IV PRN PRN PRN Reason: Dialysis Stop: 03/09/25 09:20 Last Admin: 03/09/24 11:16 Dose: 2,000 unit Heparin Sodium (Porcine) (Heparin 5,000 Unit/Ml Vial) 5,000 unit SUBCUT Q8HR [facility] Stop: 03/09/25 13:59 Last Admin: 03/10/24 05:45 Dose: Not Given Hydralazine HCl (Hydralazine 20 Mg/Ml Vial) 10 mg IV-PUSH Q4H PRN PRN Reason: Hypertension Stop: 03/09/25 11:55 Last Admin: 03/09/24 15:24 Dose: 10 mg Hydralazine HCl (Hydralazine 50 Mg Tablet) 50 mg PO TID [facility] Stop: 03/10/25 13:59 Sodium Chloride (0.9% Sodium Chloride 1,000 Ml) 1,000 mls @ 0 mls/hr MISCELLANE.Q0M PRN PRN Reason: Dialysis Stop: 03/09/25 09:20 Last Infusion: 03/09/24 11:17 Dose: Infused Ceftriaxone Sodium (Rocephin) 1 gm in 50 mls @ 100 mls/hr IV Q24H [facility] Last Admin: 03/09/24 15:23 Dose: 100 mls/hr Insulin Aspart (Insulin Aspart 300 Units/3 Ml Insuln.Pen) 0 units SUBCUT TID.WITH.MEALS [facility]; Protocol Stop: 03/10/25 07:59 Last Admin: 03/10/24 07:27 Dose: Not Given Insulin Glargine (Insulin Glargine 300 Units/3 Ml Insuln.Pen) 15 units SUBCUT DAILY [facility] Stop: 03/10/25 08:59 Last Admin: 03/10/24 08:17 Dose: 15 units Isosorbide Mononitrate (Isosorbide Mononitrate 24hr Er 60 Mg Tab.Er.24h) 60 mg PO BID [facility] Stop: 03/10/25 20:59 Midodrine (Midodrine 5 Mg [...] 40 Mg Tablet.Dr) 40 mg PO BID [facility] Stop: 03/11/25 08:59 Paricalcitol (Paricalcitol 10 Mcg/2 Ml Vial) 3 mcg IV-PUSH [id number]@1000 [facility] Stop: 03/09/25 09:59 Last Admin: 03/09/24 11:17 Dose: 3 mcg Sertraline HCl (Sertraline 100 Mg Tablet) 100 mg PO HS [facility] Stop: 03/10/25 21:59 Sodium Chloride (Sodium Chloride [...] Appearance Clear Urine pH 6.5 Ur Specific [place] 1.013 Urine Protein 300 H Urine Glucose [...] hypertensive nephrosclerosis. He currently goes to the [facility] dialysis unit 3 times a week on [...] by Angel Mejía MD> 03/10/24 1120 [facility] [facility] Work Phone: 1(431) 779-177207-23-2024 Progress note Author Kim Renteria [facility] March 10, 2024 9:30am Note Date/Time March 10, 2024 9:30 am [facility] [address] [place] [address] Hospitalist Progress Note Signed Patient: Yoel Werner MR#: [id number] : 1985 Acct:[id number] Age/Sex: 39 / M Adm Date: 4 Loc: Room: [address] [place] [address] Type: ADM IN Attending Dr: Kim Renteria [...] 03/10/24 09:00 03/10/24 08:16 Aspirin 81 Mg Tablet.Dr PO 03/10/25 08:59 81 mg DAILY RACHELL [...] Insuln.Pen SUBCUT 03/10/25 07:59 Not Given TID.WITH.MEALS [facility] Protocol Insulin Glargine 15 units 03/10/24 09:00 [...] By: <Electronically signed by Kim Renteria MD> 03/10/24 0930 [facility] Work Phone: 1([phone] 161-547407-22-2024 Consult note Author Angel Mejía [facility] March 09, 2024 5:14pm Note Date/Time March 09, 2024 12:5 1pm [facility] [address] [place] [address] Nephrology Consult Note Signed Patient: Yoel Werner MR#: [id number] : 1985 Acct:[id number] Age/Sex: 39 / M Adm Date: 4 Loc: Room: [address] [place] [address] Type: ADM IN Attending Dr: Kim Renteria MD Copies to: MD Eusebio Castellano DO [...] of breath. Patient was recently hospitalized at [facility] for shortness of breath and he [...] February 2023. He currently goes to the [facility] dialysis unit 3 times a week on [...] polydipsia Dermatological: denies any itching or rash [facility] Medical History Cataract Acute exacerbation of chronic [...] 03/02/24 [Rx] 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 meter,continuous (FreeStyle Ramy 3 [place]) #1 ea 03/02/24 [Rx] 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 sensor (FreeStyle [...] Medications: Active Medications Aspirin (Aspirin 81 Mg Tablet.) 81 mg PO DAILY RACHELL Stop: 03/10/25 [...] 5,000 Unit/Ml Vial) 5,000 unit SUBCUT Q8HR [facility] Stop: 03/09/25 13:59 Hydralazine HCl (Hydralazine 20 Mg/Ml Vial) 10 mg IV-PUSH Q4H PRN PRN Reason: Hypertension Stop: 03/09/25 11:55 Insulin Human Regular (Myxredlin) 100 unit in 100 mls @ 7.1 mls/hr IV .Q14H6M [facility]; Protocol Stop: 03/09/25 08:29 Last Admin: 03/09/24 08:50 Dose: 0.1 units/kg/hr, 7.1 mls/hr Sodium Chloride (0.9% Sodium Chloride 1,000 Ml) 1,000 mls @ 0 mls/hr MISCELLANE .Q0M PRN PRN Reason: Dialysis Stop: 03/09/25 09:20 Last Infusion: 03/09/24 11:17 Dose: Infused Ceftriaxone Sodium (Rocephin) 1 gm in 50 mls @ 100 mls/hr IV Q24H [facility] Midodrine (Midodrine 5 Mg Tablet) 5 mg [...] Skin: No rashes , warm to touch TEST DESK TROUBLE LOCATOR: Awake,Alert, following simple command Musculoskeletal: No swelling [...] Alec Flynn M.D.03/09/2024 7:30 AM Dictation Location: [place] [address] Any impression(s) listed above is documentation that [...] hypertensive nephrosclerosis. He currently goes to the [facility] dialysis unit 3 times a week on [...] <Electronically signed by Angel Mejía MD> 03/09/24 4462 [facility] Work Phone: 1(214) 243-200907-22-2024 History and physical note Author Kim Renteria [facility] March 09, 2024 11:56am Note Date/Time March 09, 2024 10:5 4am [facility] [address] [place] [address] Hospitalist H&P Signed Patient: Yoel Werner MR#: [id number] : 1985 Acct:[id number] Age/Sex: 39 / M Adm Date: 4 Loc: Room: [address] [place] [address] Type: ADM IN Attending Dr: Kim Renteria [...] of Systems Unobtainable due to mental status [facility] Medical History Cataract Acute exacerbation of chronic [...] 03/02/24 [Rx] 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 meter,continuous (FreeStyle Ramy 3 [place]) #1 ea 03/02/24 [Rx] 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 sensor (FreeStyle [...] % (Auto) 3.8 % (.) 03/09/24 05:55 Winkler % (Auto) 4.4 % (.) 03/09/24 05:55 Eos % (Auto) 0.2 % (.) 03/09/24 05:55 Baso % (Auto) 0.8 % (.) 03/09/24 05:55 Nucleat RBC Rel Count 0.0 /100 WBC (0-0.5) 03/09/24 05:55 Neut # (Auto) 11.2 x10E3/uL (1.8-7.7) H 03/09/24 05:55 Lymph # (Auto) 0.5 x10E3/uL (1.00-4.8) L 03/09/24 05:55 Winkler # (Auto) 0.5 x10E3/uL (0.0-0.8) 03/09/24 05:55 [...] <Electronically signed by Kim Renteria MD> 03/09/24 1153 [facility] Work Phone: 1(119) 792-729607-14-2024 Progress note Author Chung Maria [facility] March 01, 2024 2:36pm Note Date/Time March 01, 2024 9:35 am [facility] [address] [place] [address] Hospitalist Progress Note Signed Patient: Yoel Werner MR#: [id number] : 1985 Acct:[id number] Age/Sex: 38 / M Adm Date: 4 Loc: 4N Room: 6F8637-3 Type: ADM IN Attending Dr: Chung Maria [...] Name Freq PRN Reason Stop Dose Admin Acetaminophen 650 mg 03/01/24 05:13 Acetaminophen 325 Mg Tablet PO 03/01/25 05:12 Q6HR PRN Pain Scale 1 - 3 or fever Albuterol/Ipratropium 3 ml 03/01/24 08:00 03/01/24 09:05 Ipratropium/Albuterol 0.5-3 Mg 3 Ml Ampul.Neb INHALATION 03/01/25 07:59 3 ml QID.RESP RACHELL Administration Amlodipine Besylate 2.5 mg 03/01/24 09:00 Amlodipine 2.5 Mg Tablet PO 03/01/25 08:59 DAILY RACHELL Aspirin 81 mg 03/01/24 09:00 Aspirin 81 Mg Tab.Chew PO 03/01/25 08:59 QAM [facility] Atorvastatin Calcium 80 mg 03/01/24 21:00 Atorvastatin 80 Mg Tablet PO 03/01/25 20:59 QPM RACHELL Carvedilol 25 mg 03/01/24 09:00 Carvedilol 25 Mg Tablet PO 03/01/25 08:59 BID RACHELL Clopidogrel Bisulfate 75 mg 03/01/24 09:00 Clopidogrel Bisulfate 75 Mg Tablet PO 03/01/25 08:59 QAM [facility] Dextrose 0 gm 03/01/24 06:41 Dextrose 50% In Water 25 Gm/50 Ml Syringe IV-PUSH 03/01/25 06:40 PRN PRN Hypoglycemia Enoxaparin Sodium 40 mg 03/01/24 10:00 Enoxaparin 40 Mg/0.4 Ml Syringe SUBCUT 03/01/25 09:59 DAILY@10 [facility] Famotidine 40 mg 03/01/24 22:00 Famotidine 20 Mg Tablet PO 03/01/25 21:59 QHS [facility] Furosemide 40 mg 03/01/24 08:00 Furosemide 40 Mg Tablet PO 03/01/25 07:59 DAILY@0800 [facility] Glucose 0 gm 03/01/24 06:41 Dextrose 40% Gel 15 Gm Tube PO 03/01/25 06:40 PRN PRN Hypoglycemia Guaifenesin 1,200 mg 03/01/24 09:00 Guaifenesin 600 Mg Tab.Er.12h PO 03/01/25 08:59 BID [facility] Isosorbide Mononitrate 60 mg 03/01/24 22:00 Isosorbide Mononitrate 24hr Er 60 Mg Tab.Er.24h PO 03/01/25 21:59 QHS [facility] Melatonin 5 mg 03/01/24 05:13 Melatonin 5 Mg Tablet PO 03/01/25 05:12 QHS PRN Insomnia Methylprednisolone Sodium Succinate 40 mg 03/01/24 09:00 Methylprednisolone Sod Succ/Pf 40 Mg/Ml (1ml) Vial IV-PUSH 03/01/25 08:59 Q12HR [facility] Morphine Sulfate 2 mg 03/01/24 05:13 Morphine Sulfate 2 Mg/Ml Vial IV-PUSH Q4H PRN Pain Scale 8 - 10 Nitroglycerin 0.4 mg 03/01/24 06:38 Nitroglycerin 0.4 Mg Tab.Subl SUBLINGUAL 03/01/25 06:37 Q5MIN.X3 PRN Chest Pain Non-Formulary Medication 1,334 mg 03/01/24 09:00 Calcium Acetate PO 03/01/25 08:59 TID [facility] Non-Formulary Medication 15 unit 03/01/24 09:00 Insulin Glargine [Lantus U-100 Insulin] SUBCUT 03/01/25 08:59 DAILY [facility] Non-Formulary Medication 1 sliding scale dose 03/01/24 06:45 Insulin Lispro [Humalog Kwikpen Insulin] SUBCUT 03/01/25 06:44 USEASDIRECTD [facility] Ondansetron HCl 4 mg 03/01/24 05:13 Ondansetron 4 Mg/2 Ml Vial IV-PUSH 03/01/25 05:12 Q8H PRN Nausea And Vomiting Pantoprazole Sodium 40 mg 03/01/24 07:30 Pantoprazole 40 Mg Tablet. PO 03/01/25 07:29 BID.AC.BKFAST.SUPPER RACHELL Sertraline HCl 100 mg 03/01/24 09:00 Sertraline 100 Mg Tablet PO 03/01/25 08:59 DAILY RACHELL Sodium Chloride 0 ml [...] <Electronically signed by Chung Maria MD> 03/01/24 1436 [facility] Work Phone: [phone] Consult note Author Bryce Coy [facility] March 01, 2024 1:15pm Note Date/Time March 01, 2024 1:15 pm [facility] [address] [place] [address] Nephrology Consult Note Signed Patient: Yoel Werner MR#: [id number] : 1985 Acct:[id number] Age/Sex: 38 / M Adm Date: 4 Loc: 4N Room: [address] [place] [address] Type: ADM IN Attending Dr: Chung Maria MD Copies to: DO Bryce Leblanc MD Mohamad Akil, MD~ Providers Consult Date: 03/01/24 Requesting Provider: Chung Maria MD Primary Care Provider: Eusebio Olivares DO [facility] Reason for Consult: Management of ESRD and dialysis during hospital stay History of Present Illness: Mr. Werner is a 58-year-old white male with history of ESRD related to DM2 ondialysis on MWF schedule at [facility] unit. He presented to the hospital with shortness of breath and cough that has been getting worse recently. He reported coughing for the last 3 months that usually clear sputum. No hemoptysis or green sputum. He denies any fever or chills. He was seen at [facility] on 02/28 and was diagnosed with [...] negative unless noted below or in HPI [facility] Medical History Cataract Acute exacerbation of chronic [...] 2023 Social History Comments: lives with dad [employer] Medications & Allergies Allergies No Known Allergies [...] Tab.Chew) 81 mg PO QAM RACHELL Stop: 03/01/25 08:59 Last Admin: 03/01/24 09:40 Dose: 81 mg Atorvastatin Calcium (Atorvastatin 80 Mg Tablet) 80 mg PO QPM [facility] Stop: 03/01/25 20:59 Calcium Acetate (Calcium Acetate 667 Mg Capsule) 1,334 mg PO TID.WITH.MEALS [facility] Stop: 03/01/25 11:59 Last Admin: 03/01/24 12:09 Dose: 1,334 mg Carvedilol (Carvedilol 25 Mg Tablet) 25 mg PO BID [facility] Stop: 03/01/25 08:59 Last Admin: 03/01/24 09:39 Dose: 25 mg Clopidogrel Bisulfate (Clopidogrel Bisulfate 75 Mg Tablet) 75 mg PO QAM [facility] Stop: 03/01/25 08:59 Last Admin: 03/01/24 10:21 Dose: 75 mg Dextrose (Dextrose 50% In Water 25 Gm/50 Ml Syringe) 0 gm IV-PUSH PRN PRN PRN Reason: Hypoglycemia Stop: 03/01/25 06:40 Famotidine (Famotidine 20 Mg Tablet) 20 mg PO Q48H [facility] Stop: 03/01/25 21:59 Furosemide (Furosemide 40 Mg Tablet) 40 mg PO DAILY@0800 [facility] Stop: 03/01/25 07:59 Last Admin: 03/01/24 09:40 Dose: 40 mg Glucose (Dextrose 40% Gel 15 Gm Tube) 0 gm PO PRN PRN PRN Reason: Hypoglycemia Stop: 03/01/25 06:40 Guaifenesin (Guaifenesin 600 Mg Tab.Er.12h) 1,200 mg PO BID [facility] Stop: 03/01/25 08:59 Last Admin: 03/01/24 09:40 Dose: 1,200 mg Heparin Sodium (Porcine) (Heparin 5,000 Unit/Ml Vial) 5,000 unit SUBCUT Q12HR [facility] Stop: 03/01/25 09:44 Last Admin: 03/01/24 10:18 Dose: 5,000 unit Hydralazine HCl (Hydralazine 50 Mg Tablet) 50 mg PO TID [facility] Stop: 03/01/25 13:59 Ampicillin Sodium/Sulbactam Sodium (Unasyn) 1.5 gm in 100 mls @ 200 mls/hr IV DAILY@1700 [facility] Insulin Aspart (Insulin Aspart 300 Units/3 Ml Insuln.Pen) 0 units SUBCUT ACHS [facility]; Protocol Stop: 03/01/25 10:29 Last Admin: 03/01/24 12:10 Dose: 9 units Insulin Glargine (Insulin Glargine 300 Units/3 Ml Insuln.Pen) 15 units SUBCUT DAILY [facility] Stop: 03/01/25 10:59 Last Admin: 03/01/24 10:19 Dose: 15 units Isosorbide Mononitrate (Isosorbide Mononitrate 24hr Er 60 Mg Tab.Er.24h) 60 mg PO BID [facility] Stop: 03/01/25 20:59 Melatonin (Melatonin 5 Mg [...] 40 Mg Tablet.Dr) 40 mg PO BID.AC.BKFAST.SUPPER [facility] Stop: 03/01/25 07:29 Last Admin: 03/01/24 10:18 Dose: 40 mg Sertraline HCl (Sertraline 100 Mg Tablet) 100 mg PO HS [facility] Stop: 03/01/25 08:59 Sodium Chloride (Sodium Chloride [...] disease on hemodialysis in February 2023 at [facility] on MWF schedule (2) Acute [...] this. Documented By: Bryce Coy MD 03/01/24 1256 Signed By: <Electronically signed by MD Bryce Coy> 03/01/24 7482 [facility] Work Phone: 1(989) 901-144007-14-2024 History and physical note Author Isidoro Mesa [facility] March 01, 2024 6:46am Note Date/Time March 01, 2024 6:32 am [facility] [address] [place] [address] Hospitalist H&P Signed Patient: Yoel Werner MR#: [id number] : 1985 Acct:[id number] Age/Sex: 38 / M Adm Date: 4 Loc: 4N Room: [address] [place] [address] Type: ADM IN Attending Dr: Isidoro Mesa DO Copies to: Eusebio OlivaresDO Isidoro DO~ HPI DATE OF EXAMINATION: 03/01/24 CHIEF [...] this 3-month period, he did go to [facility] yesterday was diagnosed with bronchitis, received a [...] negative unless noted below or in HPI [facility] Medical History Cataract Acute exacerbation of chronic [...] % (Auto) 8.0 % (.) 03/01/24 02:55 Winkler % (Auto) 5.4 % (.) 03/01/24 02:55 Eos % (Auto) 0.2 % (.) 03/01/24 02:55 Baso % (Auto) 0.8 % (.) 03/01/24 02:55 Nucleat RBC Rel Count 0.0 /100 WBC (0-0.5) 03/01/24 02:55 Neut # (Auto) 8.8 x10E3/uL (1.8-7.7) H 03/01/24 02:55 Lymph # (Auto) 0.8 x10E3/uL (1.00-4.8) L 03/01/24 02:55 Winkler # (Auto) 0.5 x10E3/uL (0.0-0.8) 03/01/24 02:55 [...] Acute hypoxic respiratory failure: Plan: Admit to [facility] floor, inpatient status ? Continue with supplemental [...] by Isidoro Mesa DO> 03/01/24 0646 [facility] Work Phone: 1([phone]) [phone] History of Present illness Narrative* Brianna Gomez, - 12/03/2023 2:50 PM EDT Subjective Yoel Werner is a 38 y.o. male Chief Complaint Follow-up 38-year-old type I diabetic returns for follow-up and is doing well without any cardiovascular events, complaints or nitrate usage, hospitalizations or heart failure now with preserved and improved left ventricular function. He has a history of large anterior MD with severe three-vessel disease and eventually underwent [...] benign 3. Mixed hyperlipidemia 4. History of MD (myocardial infarction) 5. Status post insertion of drug eluting coronary artery stent 6. ESRD (end stage renal disease) on dialysis (Multi) 7. Current every day smoker 8. Type 2 diabetes mellitus with chronic kidney disease on chronic dialysis, with long-term currentuse of insulin (Multi) 9. BMI 22.0-22.9, adult Scribe Attestation By signing my name below, Alana Ponce LPN , Scribe attest that this documentation [...] exam, discussion and plan. [facility] Work Phone: 1(856) 241-754204-16-2024 Instructions* Patient Instructions* Alana Pace LPN - [...] time of your visit. [facility] Work Phone: [phone]) 567-885904-09-[address] [facility]03-14-[address] [facility]02-12-2024 History of Present illness Narrative* Nelida Carrington [...] f/u s/p MRI to be done at [facility] documented in this encounterFreeman Health [id number] Hospital Discharge instructions Follow Up Care 09/05/2023 13:18:24 With:TRUONG MOLINA, Mickey Tovar, URL Address: [facility] [address] , [place] [address]- [phone] When: Unknown [facility] 01-11-2024 Evaluation note* Encounter Date Diagnosis Assessment [...] the patient as needed in the future. [facility] [employer] [facility] Other 01-08-2024 Evaluation note* Encounter Date Diagnosis Assessment Notes Treatment Notes Treatment Clinical Notes Aug, Diabetes mellitus with chronic kidney disease (ICD-10 - E11.22) [place] [facility] [employer] Other 12-31-2023 Consult note Author Brianna Stewart [facility] August 18, 2023 11:30am Note Date/Time August 18, 2023 11:30am [facility] [address] [place] [address] Cardiology Consult Note Signed Patient: Yoel Werner MR#: [id number] : 1985 Acct:[id number] Age/Sex: 38 / M Adm Date: 3 Loc: Room: [address] [place] [address] Type: ADM INOo Attending Dr: Jorge Mederos DO Copies to: Eusbeio Olivares,DO Jorge Mederos, DO Brianna Stewart MD~ Cardiology HPI History of Present Illness [...] now on dialysis. He presented yesterday to [facility] with anginal type discomfort. He states it [...] and no additional complaints, except as documented [facility] Medical History Anxiety Asthmatic bronchitis , chronic [...] Code(s): I25.10 - Atherosclerotic heart disease of [place] coronary artery without angina pectoris (2) Chest [...] <Electronically signed by MD Brianna Stewart> 08/18/23 1130 [facility] Work Phone: [phone]) [phone] History and physical note Author Law Cano [facility] August 18, 2023 6:58am Note Date/Time August 18, 2023 5:48am [facility] [address] [place] [address] Hospitalist H&P Signed Patient: Yoel Werner MR#: [id number] : 1985 Acct:[id number] Age/Sex: 38 / M Adm Date: 3 Loc: Room: [address] [place] [address] Type: ADM INOo Attending Dr: Law Cano MD Copies to: DO Law Leblanc MD~ HPI DATE OF EXAMINATION: 08/18/23 HISTORY OF PRESENT ILLNESS: This is a pleasant 38M with PMH of HTN, DM, HLD, CAD s/p stenting, HF, ESRD on HD, GERD, anxiety who presented with chest pain to [facility] () ER and transferred for the evaluation [...] care Discussed with:?the medical team, the patient [facility] Medical History Anxiety Asthmatic bronchitis , chronic [...] signed by Law Cano MD> 08/18/23 0658 [facility] Work Phone: [phone]) 434-518312-26-2023 Evaluation note* Encounter Date Diagnosis Assessment Notes [...] Lexapro Declines adjustment in dose or augmentation [facility] Other 11-28-2023 Evaluation note* Encounter Date Diagnosis [...] low closely. No s/s GIB No bleed [facility] Other 11-16-2023 Evaluation note* Encounter Date Diagnosis [...] patient back in 2 months for checkup. 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 There does appear to be a competing outflow segment of the vein in the forearm. I suggest we try to either coil this or tied off. We will start with a less invasive option going to the [facility] for coil embolization of a cephalic venous tributary in the left forearm. This is explained to the patient he understands agrees with plan all his questions were addressed and the patient consents to this today. [facility] Other 10-10-2023 Evaluation note* Encounter Date Diagnosis [...] w/ Nephrology. Monitor monthly No s/s bleeding [facility] Other 08-25-2023 [facility]* Encounter Date Diagnosis Assessment [...] addressed. We will schedule this for Saturday. [facility] Other 07-12-2023 Evaluation note* Encounter Date Diagnosis Assessment Notes Treatment Notes Treatment Clinical Notes Feb, Chronic kidney disea se, stage 5 (ICD-10 - N18.5) He has a CKD due to the DM and HTN. Patient reported uremic symptoms. His AVF has matured. He is interested in HD and agreed to initiate dialysis. I coordinated with the [facility] dialysis unit for his admission. Also gave [...] due to the advanced CKD and hyperkalemia [facility] Other 06-26-2023 Evaluation note* Encounter Date Diagnosis [...] Bp stays high then will aid amlodipine. 26 Timo, 2023 Hyperkalemia (ICD-10 - E87.5) He had hyperkalemia [...] due to the advanced CKD and hyperkalemia [facility] Other 06-19-2023 Discharge summary Author Denilson Gomez [facility] February 04, 2023 5:27pm Note Date/Time February 04, 2023 5:16 pm [facility] [address] [place] [address] Discharge Summary Signed with Addenda Patient: Yoel Werner MR#: [id number] : 1985 Acct:[id number] Age/Sex: 37 / M Adm Date: 3 [...] History of PCI LAD with prior anterior MD 3. Residual RCA disease 4. Stage IV/V chronic kidney disease 6. Type 1 diabetes mellitus 7. Successful PCI proximal/mid LAD x2 JUAN C Summary Hospital Course Hospital course: 37-year-old gentleman with severe coronary artery disease and type 1 diabetes mellitus status post anterior MD with revascularization of the LAD and residual [...] doctor or pharmacist, without first calling the finance admin who implanted the stent. If you require [...] weight lifting, stair steppers, etc. until the finance admin approves these activities. Check with the finance admin on your first follow-up visit. CALL YOUR PHYSICIAN at [phone]: -If bleeding should occur from the catheter insertion site- apply pressure to the site then immediately call us. -Report any fever, redness, drainage, increased swelling, or firmness at the catheter insertion site. Some bruising or slight swelling may be present at thetime of discharge. -Should arm or leg become cold, numb, white, or blue, contact the finance admin immediately. -IF you should experience episodes of [...] is recommended. Please call Central Scheduling at [phone] to schedule your appointment.] The attending finance admin or [facility] nurse clinician should provide you with specific instructions regarding activity, diet, medications, and further follow up for you. Follow the medication instructions provided on your discharge. If the dosages and instructions on this sheet differ from the dosage and instructions on the bottle, follow the instructions on the bottle. [facility] is not responsible for incorrect prescription [...] 9:30 am Documented By: Denilson Gomez DO 02/04/23 0932 Signed By: <Electronically signed by Denilson Gomez DO> 02/04/23 1718 [facility] Work Phone: 1(158) 470-609406-19-2023 [facility] Evaluation note* Encounter Date Diagnosis Assessment [...] is pleased with his outcome and care. [facility] Other 04-25-2023 [facility]2023 Evaluation note* Encounter Date Diagnosis Assessment Notes Treatment Notes Treatment Clinical Notes Nov, Anemia in chronic kidney disease (ICD-10 - D63.1) Nov, Chronic kidney disease, stage 5 (ICD-10 - N18.5) [facility] Other 04-12-2023 Evaluation note* Encounter Date Diagnosis [...] scheduled in the near future for intervention. [facility] Other 04-03-2023 Evaluation note* Encounter Date Diagnosis [...] the losartan due to the advanced CKD. [facility] Other 03-27-2023 Evaluation note* Encounter Date Diagnosis Assessment Notes Treatment Notes Treatment Clinical Notes Oct, Primary hypertension (ICD-10 - I10) [facility] Other 03-07-2023 Evaluation note* Encounter Date Diagnosis Assessment Notes Treatment Notes Treatment Clinical Notes Oct, Type 1 diabetes mellitus with hyperglycemia (ICD-10 - E10.65) [facility] Other 02-28-2023 Evaluation note* Encounter Date Diagnosis [...] DM management. Continue losartan for renal protection. [facility] Other 02-22-2023 Evaluation note* Encounter Date Diagnosis [...] meantime with any issues or concerns whatsoever. [facility] Other 02-20-2023 Evaluation note* Encounter Date Diagnosis [...] in chronic kidney disease (ICD-10 - D63.1) [facility] Other 02-15-2023 Progress note Author Ross Catherine [facility] October 03, 2022 2:51pm Note Date/Time October 03, 2022 2:48pm [facility] [address] [place] [address] Hospitalist Progress Note Signed Patient: Yoel Werner MR#: [id number] : 1985 Acct:[id number] Age/Sex: 37 / M Adm Date: 3 Loc: 4P Room: [address] [place] [address] Type: ADM LEONELo Attending Dr: Ross Catherine MD Copies to: [...] 81 Mg Tab.Chew PO 10/04/23 08:59 QAM [facility] Atorvastatin Calcium 80 mg 10/03/22 21:00 Atorvastatin 80 Mg Tablet PO 10/03/23 20:59 QPM [facility] Carvedilol 12.5 mg 10/03/22 17:00 Carvedilol 12.5 Mg Tablet PO 10/03/23 16:59 BID.WITH.MEALS [facility] Clopidogrel Bisulfate 75 mg 10/04/22 09:00 Clopidogrel Bisulfate 75 Mg Tablet PO 10/04/23 08:59 QAM [facility] Ergocalciferol 1,250 mcg 10/10/22 09:00 Ergocalciferol 1,250 Mcg (50,000 Units) Capsule PO 10/10/23 08:59 We@0900 [facility] Escitalopram Oxalate 10 mg 10/03/22 22:00 Escitalopram 10 Mg Tablet PO 10/03/23 21:59 [facility] Famotidine 40 mg 10/03/22 22:00 Famotidine 20 Mg Tablet PO 10/03/23 21:59 [facility] Furosemide 40 mg 10/04/22 09:00 Furosemide 40 Mg Tablet PO 10/04/23 08:59 QAM [facility] Hydralazine HCl 50 mg 10/03/22 22:00 Hydralazine 50 Mg Tablet PO 10/03/23 21:59 TID [facility] Insulin Glargine 12 units 10/04/22 09:00 Insulin Glargine 300 Units/3 Ml Insuln.Pen SUBCUT 10/04/23 08:59 QAM [facility] Insulin Human Lispro unit 10/03/22 14:45 Insulin Lispro (Rashard/Ed Only) 300 Unit/3 Ml Vial SUBCUT 10/03/23 14:44 USEASDIRECTD [facility] Isosorbide Mononitrate 30 mg 10/03/22 22:00 Isosorbide Mononitrate 24hr Er 30 Mg Tab.Er.24h PO 10/03/23 21:59 [facility] Nitroglycerin 0.4 mg 10/03/22 14:31 Nitroglycerin 0.4 Mg Tab.Subl SUBLINGUAL 10/03/23 14:30 Q5MIN.X3 PRN Chest Pain Pantoprazole Sodium 40 mg 10/04/22 09:00 Pantoprazole 40 Mg Tablet.Dr PO 10/04/23 08:59 QAM [facility] Sodium Chloride 0 ml 10/03/22 01:40 10/03/22 [...] cardiology Documented By: Ross Catherine MD 10/03/22 7637 Signed By: <Electronically signed by Ross Catherine MD> 10/03/22 8517 [facility] Work Phone: 1(963) 845-576702-15-2023 History and physical note Author Reina Renae [facility] October 03, 2022 4:54am Note Date/Time October 03, 2022 4:38am [facility] [address] [place] [address] Hospitalist H&P Signed Patient: Yoel Werner MR#: [id number] : 1985 Acct:[id number] Age/Sex: 37 / M Adm Date: 3 Loc: Room: [address] [place] [address] Type: ADM IN Attending Dr: Reina Renae [...] L 10/02/22 23:35 MCV 87.1 fl (83.5-101) 10/02/22: MCH 30.4 pg (27.5-35.2) 10/02/22 23: MCHC 34.9 g/dL (32.5-35.6) 10/02/22 23: RDW 13.2 % (12.0-14.8) 10/02/22:35 Plt Count 185 x10E3/uL (150-450) 10/02/22 23:35 MPV 8.2 fl (6.6-10.1) 10/02/22 23:35 Neut % (Auto) 70.2 % (.) 10/02/22: Lymph % (Auto) 19.9 % (.) 10/02/22 23:35 Winkler % (Auto) 5.5 % (.) 10/02/22 23: Eos % (Auto) 2.7 % (.) 10/02/22: Baso % (Auto) 1.7 % (.) 10/02/22 23:35 Nucleat RBC Rel Count 0.0 /100 WBC (0-0.5) 10/02/22 23:35 Neut # (Auto) 5.1 x10E3/uL (1.8-7.7) 10/02/22:35 Lymph # (Auto) 1.4 x10E3/uL (1.00-4.8) 10/02/22 23:35 Winkler # (Auto) 0.4 x10E3/uL (0.0-0.8) 10/02/22 23:35 [...] signed by Reina Renae DO> 10/03/22 0454 [facility] Work Phone: 1(562) 241-939701-30-2023 [facility] Progress note Author Haydee Lira [facility] September 12, 2022 3:35pm Note Date/Time September 10, 2022 5 :14pm [facility] [place] [address] Hem/Onc Follow Up Note - OP Signed Patient: Yoel Werner MR#: [id number] : 1985 Acct:[id number] Age/Sex: 37 / M Type: REG RCR Copies to: MD Eusebio Castellano DO~ Subjective Date/Time of Service: Date [...] history of asthma, hives, eczema or rhinitis. [facility] - Medical History Medical History: Medical History [...] IgM 189 H, Serum Immunofixation Comment:, Free [place] LC, Quant 128.0 H, Free Lambda LC, Quant 77.5 H, Free [place]/Lambda Ratio 1.65 Assessment and Plan (1) MGUS [...] for coordination of care (as documented) and cwdb-fe-otof counseling of patient and/or family. Dictated By: Haydee Lira APRN DD/ 06 Signed By: <Electronically signed by JOSH Lira> 09/12/22 8785 [facility] Work Phone: 1([phone]) 793-137901-18-2023 Evaluation note* Encounter Date Diagnosis Assessment Notes [...] we will schedule this in near future. [facility] Other 01-12-2023 Evaluation note* Encounter Date Diagnosis [...] CKD. I explained to potential need of FILM FLAT INSPECTOR in near future. I discussed with him different option of FILM FLAT INSPECTOR including PD, transplant, HD. He attended the [...] DM management. Continue losartan for renal protection. [facility] Other 01-11-2023 Hospital Discharge instructions Patient Education [...] Follow these instructions at home: Medicines Take ahzk-sgs-xiibkxw and prescription medicines only as told by [...] 08/02/2001 Document Revised: 07/18/2018 Document Reviewed: 08/21/2017 [employer] Patient Education 2020 [employer]. Follow Up Care 07/16/2022 11:13:53 With:TRUONG MOLINA, Mickey Tovar, URL Address: [facility] [address], [place] [address]- When: Unknown [facility] 12-26-2022 Consult note Author Nancy Haas [facility] August 13, 2022 1:06pm Note Date/Time August 13, 2022 1:01pm [facility] [address] [place] [address] Nephrology Consult Note Signed Patient: Yoel Werner MR#: [id number] : 1985 Acct:[id number] Age/Sex: 37 / M Adm Date: 2 Loc: Room: 1G9339-8 Type: ADM INOo Attending Dr: Law Cano MD Copies to: MD Eusebio Tao DO Marwan Wassouf, MD~ Providers Consult Date: 08/13/22 Requesting Provider: Law Cano MD Primary Care Provider: Eusebio Olivares DO [facility] Reason for Consult: Acute kidney injury on chronic kidney disease History of Present Illness: This is a 37-year-old male patient with past medical history of insulin- dependent diabetes mellitus, hypertension, hyperlipidemia, chronic kidney disease stage IV with baseline creatinine around 3.2 to 3.4 mg deciliter, history of non-ST MD status post stent placement. Patient brought in to the hospital for sudden onset of chest pain and syncope while he was urinating at home. Patient was a little drowsy when he arrived but this resolved. Patient stated his chest pain is similar to when he had acute MD. Patient also reportedsome shortness of breath. Blood [...] 5,000 Unit/Ml Vial) 5,000 unit SUBCUT Q8HR [facility] Stop: 08/13/23 05:59 Last Admin: 08/13/22 06:32 Dose: 5,000 unit Hydralazine HCl (Hydralazine 20 Mg/Ml Vial) 10 mg IV-PUSH Q4H PRN PRN Reason: Hypertension Stop: 08/13/23 04:46 Hydralazine HCl (Hydralazine 50 Mg Tablet) 50 mg PO TID [facility] Stop: 08/13/23 08:59 Last Admin: 08/13/22 08:22 Dose: 50 mg Magnesium Sulfate (Magnesium Sulf 2gm-*Swfi*) 2 gm in 50 mls @ 25 mls/hr IV DAILY PRN PRN Reason: Magnesium Level < 1.5 Stop: 08/13/23 04:46 Insulin Aspart (Insulin Aspart 300 Units/3 Ml Insuln.Pen) 0 units SUBCUT TID.WM.HS [facility]; Protocol Stop: 08/13/23 07:59 Last Admin: 08/13/22 11:13 Dose: 3 units Insulin Glargine (Insulin Glargine 300 Units/3 Ml Insuln.Pen) 12 units SUBCUT DAILY [facility] Stop: 08/13/23 08:59 Last Admin: 08/13/22 09:07 Dose: 12 units Isosorbide Mononitrate (Isosorbide Mononitrate 24hr Er 30 Mg Tab.Er.24h) 30 mg PO DAILY [facility] Stop: 08/13/23 08:59 Last Admin: 08/13/22 08:22 Dose: 30 mg Nitroglycerin (Nitroglycerin 0.4 Mg Tab.Subl) 0.4 mg SUBLINGUAL Q5MIN.X3 PRN PRN Reason: Chest Pain Stop: 08/13/23 04:50 Non-Formulary Medication (Epoetin Alexus-Epbx [Retacrit]) 20,000 unit SUBCUT QMONTH [facility] Stop: 08/13/23 04:59 Omeprazole (Omeprazole 20 Mg Capsule.Dr) 40 mg PO DAILY [facility] Stop: 08/13/23 08:59 Last Admin: 08/13/22 08:22 [...] Appearance Clear Urine pH 5.5 Ur Specific [place] 1.011 Urine Protein 300 H Urine Glucose (UA) 250 H Urine Ketones Negative Urine Occult Blood 1+ H Urine Nitrite Negative Ur Leukocyte Esterase Negative Urine RBC 10-19 H Urine WBC 1-2 Urine Bacteria None seen Radiology Impressions Impressions - last 24 hours: Impressions Head CT 08/12/22 23:07 IMPRESSION: No acute intracranial findings. Impression dictated by: Alec Flynn M.D.08/13/2022 11:25 AM Dictation Location: [place] [address] Chest X-Ray 08/13/22 04:55 IMPRESSION: No acute process. Impression dictated by: Alec Flynn M.D.08/13/2022 8:22 AM Dictation Location: [place] [address] Any impression(s) listed above is documentation that was entered by the reading physician into a diagnostic report(s) for Yoel Markhammarquisjose. I have reviewed the report(s) and am [...] concern. Documented By: Nancy Haas MD 08/13/22 4541 Signed By: <Electronically signed by Nancy Haas MD> 08/13/22 9813 [facility] Work Phone: 1(423) 644-686012-26-2022 History and physical note Author Isidoro [place] [facility] August 13, 2022 4:55am Note Date/Time August 13, 2022 4:18am [facility] [address] [place] [address] Hospitalist H&P Signed Patient: Yoel Werner MR#: [id number] : 1985 Acct:[id number] Age/Sex: 37 / M Adm Date: 2 Loc: 3T Room: [address] [place] [address] Type: ADM INOo Attending Dr: Isidoro [place] [...] % (Auto) 29.2 % (.) 08/12/22 23:58 Winkler % (Auto) 8.9 % (.) 08/12/22 23:58 Eos % (Auto) 2.7 % (.) 08/12/22 23:58 Baso % (Auto) 1.5 % (.) 08/12/22 23:58 Nucleat RBC Rel Count 0.1 /100 WBC (0-0.5) 08/12/22 23:58 Neut # (Auto) 3.1 x10E3/uL (1.8-7.7) 08/12/22 23:58 Lymph # (Auto) 1.6 x10E3/uL (1.00-4.8) 08/12/22 23:58 Winkler # (Auto) 0.5 x10E3/uL (0.0-0.8) 08/12/22 23:58 [...] pH 5.5 (5.0-9.0) 08/13/22 00:49 Ur Specific [place] 1.011 (1.001-1.030) 08/13/22 00:49 Urine Protein 300 [...] <Electronically signed by Isidoro [place] DO> 08/13/22 4714 [facility] Work Phone: 1(500) 809-397912-15-2022 Miscellaneous Notes* Telephone Encounter - Naun Willis - 08/02/2022 10:39 AM EST Returned call to patient regarding kidney transplant, he is currently smoking cigarettes about 1/2 pack per day. Advised patient once he is nicotine free for 30-days to contact our office. Closing referral at this time and patient verbalized understanding. [facility]* Encounter Date Diagnosis Assessment [...] CKD. I explained to potential need of FILM FLAT INSPECTOR in near future. I discussed with him different option of FILM FLAT INSPECTOR including PD, transplant, HD. I referred him [...] DM management. Continue losartan for renal protection. [facility] Other 10-11-2022 Progress note Author Jorje Small [facility] May 29, 2022 4:50pm Note Date/Time May 29, 2022 4 :42pm [facility] [address] [address] Hem/Onc Follow Up Note - OP Signed Patient: Yoel Werner MR#: [id number] : 1985 Acct:[id number] Age/Sex: 37 / M Type: REG RCR [...] history of asthma, hives, eczema or rhinitis. [facility] - Medical History Medical History: Medical History (Last Reviewed 05/21/22 @ 21:53 by Viktoria Barrios, RN) COVID Diabetes Diabetic retinopathy History of [...] glargine 100 unit/mL (3 mL) subcutaneous pen (Pumodoaglar KwikPen U-100 Insulin) 20 unit subcut DAILY [...] for coordination of care (as documented) and hpbc-mc-xiqh counseling of patient and/or family. Dictated By: Jorje Small MD DD/ 1641 Signed By: <Electronically signed by Jorje Small MD> 05/29/22 1654 [facility] Work Phone: [phone]) 462-554210-05-2022 Evaluation note* Encounter Date Diagnosis Assessment Notes [...] CKD. I explained to potential need of FILM FLAT INSPECTOR in near future. I discussed with him different option of FILM FLAT INSPECTOR including PD, transplant, HD. I referred him [...] DM management. Continue losartan for renal protection. [facility] Other 09-21-2022 Consult note Author Jorje Small [facility] May 09, 2022 3:02pm Note Date/Time May 09, 2022 2:53pm [facility] at [address] [address] Hem/Onc Consult Note - OP Signed Patient: Yoel Werner MR#: [id number] : 1985 Acct:[id number] Age/Sex: 37 / M Type: REG RCR [...] assessment is warranted and concern on the transitional nurse part is appropriate and justified. We will [...] for coordination of care (as documented) and etdk-qs-zqaf counseling of patient and/or family. Dictated By: Jorje Small MD DD/ 6237 Signed By: <Electronically signed by Jorje Small MD> 05/09/22 1509 [facility] Work Phone: [phone] 812-371509-02-2022 Evaluation note* Encounter Date Diagnosis Assessment Notes Treatment Notes Treatment Clinical Notes Apr, Anemia of renal disease (ICD-10 - D63.1) Apr, Chronic kidney disease, stage III (moderate) (ICD-10 - N18.30) [facility] Other 08-17-2022 Evaluation note* Encounter Date Diagnosis Assessment Notes Treatment Notes Treatment Clinical Notes Mar, Secondary hyperparathyroidism (ICD-10 - N25.81) [facility] Other 08-11-2022 Evaluation note* Encounter Date Diagnosis [...] explained to him due to the recent MD and dual antiplatelet therapy biopsy will be [...] CKD. I explained to potential need of FILM FLAT INSPECTOR in near future. I discussed with him different option of FILM FLAT INSPECTOR including PD, transplant, HD. Mar, Lauri hy [...] DM management. Continue losartan for renal protection. [facility] Other 05-03-2022 Evaluation note* Encounter Date Diagnosis [...] DM management. Continue losartan for renal protection. [facility] Other 03-23-2022 Evaluation note* Encounter Date Diagnosis [...] the torsemide 60 mg daily. Oct, Lauri finch w cr kid I-IV (ICD-10 [...] DM management. Continue losartan for renal protection. [facility] Other 02-14-2022 NoteHNO ID: [id number] Author: Zita Allen MD Service: ? Author [...] monitor PDR OU -sees Dr. [facility] [place] -s/p Avastin OU last 09/08/21 -s/p PPV/SO/scleral [...] its relevant components. Zita Allen MD October 02[facility] note Author Jorje Small [facility] May 09, 2022 3:02pm Note Date/Time May 09, 2022 2:53pm [facility] [place] [address] Hem/Onc Consult Note - OP Signed Patient: Yoel Werner MR#: [id number] : 1985 Acct:[id number] Age/Sex: 37 / M Type: REG RCR [...] assessment is warranted and concern on the transitional nurse part is appropriate and justified. We will [...] for coordination of care (as documented) and tidx-hy-ujxy counseling of patient and/or family. Dictated By: Jorje Small MD DD/ 1453 Signed By: <Electronically signed by Jorje Small MD> 05/09/22 1502 [facility] Work Phone: Consult note Author Nancy Haas [facility] August 13, 2022 1:06pm Note Date/Time August 13, 2022 1:01pm [facility] [address] [place] [address] Nephrology Consult Note Signed Patient: Yoel Werner MR#: [id number] : 1985 Acct:[id number] Age/Sex: 37 / M Adm Date: 2 Loc: Room: [address] [place] [address] Type: ADM INOo Attending Dr: Law Cano MD Copies to: MD Eusebio Tao DO Marwan Wassouf, MD~ Providers Consult Date: 08/13/22 Requesting Provider: Law Cano MD Primary Care Provider: DO ROBERTO Leblanc Reason for Consult: Acute kidney injury on chronic kidney disease History of Present Illness: This is a 37-year-old male patient with past medical history of insulin- dependent diabetes mellitus, hypertension, hyperlipidemia, chronic kidney disease stage IV with baseline creatinine around 3.2 to 3.4 mg deciliter, history of non-ST MD status post stent placement. Patient brought in to the hospital for sudden onset of chest pain and syncope while he was urinating at home. Patient was a little drowsy when he arrived but this resolved. Patient stated his chest pain is similar to when he had acute MD. Patient also reportedsome shortness of breath. Blood [...] 5,000 Unit/Ml Vial) 5,000 unit SUBCUT Q8HR [facility] Stop: 08/13/23 05:59 Last Admin: 08/13/22 06:32 Dose: 5,000 unit Hydralazine HCl (Hydralazine 20 Mg/Ml Vial) 10 mg IV-PUSH Q4H PRN PRN Reason: Hypertension Stop: 08/13/23 04:46 Hydralazine HCl (Hydralazine 50 Mg Tablet) 50 mg PO TID [facility] Stop: 08/13/23 08:59 Last Admin: 08/13/22 08:22 Dose: 50 mg Magnesium Sulfate (Magnesium Sulf 2gm-*Swfi*) 2 gm in 50 mls @ 25 mls/hr IV DAILY PRN PRN Reason: Magnesium Level < 1.5 Stop: 08/13/23 04:46 Insulin Aspart (Insulin Aspart 300 Units/3 Ml Insuln.Pen) 0 units SUBCUT TID..[facility]; Protocol Stop: 08/13/23 07:59 Last Admin: 08/13/22 11:13 Dose: 3 units Insulin Glargine (Insulin Glargine 300 Units/3 Ml Insuln.Pen) 12 units SUBCUT DAILY [facility] Stop: 08/13/23 08:59 Last Admin: 08/13/22 09:07 Dose: 12 units Isosorbide Mononitrate (Isosorbide Mononitrate 24hr Er 30 Mg Tab.Er.24h) 30 mg PO DAILY [facility] Stop: 08/13/23 08:59 Last Admin: 08/13/22 08:22 Dose: 30 mg Nitroglycerin (Nitroglycerin 0.4 Mg Tab.Subl) 0.4 mg SUBLINGUAL Q5MIN.X3 PRN PRN Reason: Chest Pain Stop: 08/13/23 04:50 Non-Formulary Medication (Epoetin Alexus-Epbx [Retacrit]) 20,000 unit SUBCUT QMONTH [facility] Stop: 08/13/23 04:59 Omeprazole (Omeprazole 20 Mg Capsule.Dr) 40 mg PO DAILY [facility] Stop: 08/13/23 08:59 Last Admin: 08/13/22 08:22 [...] Appearance Clear Urine pH 5.5 Ur Specific [place] 1.011 Urine Protein 300 H Urine Glucose (UA) 250 H Urine Ketones Negative Urine Occult Blood 1+ H Urine Nitrite Negative Ur Leukocyte Esterase Negative Urine RBC 10-19 H Urine WBC 1-2 Urine Bacteria None seen Radiology Impressions Impressions - last 24 hours: Impressions Head CT 08/12/22 23:07 IMPRESSION: No acute intracranial findings. Impression dictated by: Alce Flynn M.D.08/13/2022 11:25 AM Dictation Location: [place] [address] Chest X-Ray 08/13/22 04:55 IMPRESSION: No acute process. Impression dictated by: Alec Flynn M.D.08/13/2022 8:22 AM Dictation Location: [place] [address] Any impression(s) listed above is documentation that [...] by Nancy Haas MD> 08/13/22 1303 [facility] Work Phone: Consult note Author W Jason [facility] October 03, 2022 5:14pm Note Date/Time October 03, 2022 5:06pm [facility] [address] [place] [address] Cardiology Consult Note Signed Patient: Yoel Werner MR#: [id number] : 1985 Acct:[id number] Age/Sex: 37 / M Adm Date: 3 Loc: 4 Room: [address] [place] [address] Type: ADM INOo Attending Dr: Ross Catherine MD Copies to: DO Ross Leblanc MD W Rene Gomez, ~ Cardiology HPI History of Present Illness Consult Date: 10/03/22 Reason for Consult: Angina pectoris class III?IV, ASHD, type 1 diabetes HPI: Mr. Wenrer is a 37 year old male seen [...] 2021 he presented with acute non-ST elevation MD, in conjunction with type 1 diabetes and [...] Lymph # (Auto) 1.4 1.7 (1.00-4.8) x10E3/uL [place] # (Auto) 0.4 0.3 (0.0-0.8) x10E3/uL Eos [...] Code(s): I25.10 - Atherosclerotic heart disease of [place] coronary artery without angina pectoris (5) Diabetes: Code(s): E11.9 - Type 2 diabetes mellitus without complications Documented By: Denilson Gomez DO 10/03/221702 Signed By: <Electronically signed by Denilson Gomez DO> 10/03/22 3540 [facility] Work Phone: Consult note Author Denilson Gomez [facility] Note Date/Time June 01, 2025 1 1:02am [facility] [address] [place] [address] Cardiology Consult Note Signed Patient: Yoel Werner MR#: [id number] : 1985 Acct:[id number] Age/Sex: 40 / M Adm Date: 5 Loc: Room: [address] [place] [address] Type: ADM INOo Attending Dr: Chung Maria MD Copies to: DO Chung Leblanc MD W Scott Sheldon, DO~ Cardiology HPI History of Present Illness Consult Date: 06/01/25 Reason for Consult: Accelerated hypertension, ESRD, ASHD, 4+ mitral regurg HPI: Mr. Werner is a 40 year old male seen in cardiology consultation at request of ER attending, Dr. Allyson Munoz and hospitalist this morning; case discussedwith Dr. Munoz last evening. Patient underwent dialysis yesterday, had postdialysis severe hypertension with associated headache and atypical chest pain. He went home and went to sleep, woke up with severe headache and came to the emergency room. This is not the first time he has had accelerated hypertensive postdialysis; has had several hospitalizations for the above. Troponins are weakly positive in the 70s, BNP is elevated at 3885 (ESRD?hemodialysis). Patient has known coronary artery disease, remote MD, multivessel PCI's last which was restenosis of the proximal LAD last year and underwent repeat stenting; follow-up echocardiogram revealed normalized left ventricular functionand persistent 4+ mitral regurgitation. He is undergoing structural heart consultation for mitral repair/MitraClip He has type 1 diabetes has been on dialysis for at least the past 2 years plus; undergoing evaluation for combined pancreatic?kidney transplantation. Blood pressure historically has been difficult to control, we saw him last week in the office and escalated his hydralazine to 100 mg 3 times daily which she has not started as of yet. Will continue with current medications including the higher dosing of hydralazine 100 3 times daily, will add Entresto 24/26 twice daily to his regimen in hopes of bringing his blood pressure down further (treating ischemic cardiomyopathy and mitral regurgitation as well); and follow-up in the office within the next 4 weeks for BP check, and proceed with structural heart referral. Patient be discharged this morning [facility] Medical History Type I diabetes mellitus with hypoglycemia History of pneumonia History of COVID-19 Decreased vision of left eye Dialysis patient Nicotine addiction Right shoulder pain Chronic heart failure with preserved ejection fraction (HFpEF) Type 1 diabetes mellitus with hyperglycemia Mitral regurgitation Echo: LVEF 60%, LVH, normal RV function but enlarged, RVSP elevated, severe MR - 08/2024, Wellness examination Insomnia Hypertensive CKD, ESRD on dialysis ASHD (arteriosclerotic heart disease) Echo: LVEF 60%, LVH, normal RV function but enlarged, RVSP elevated, severe MR - 08/2024, LHC x 5, PCI/stent prox LAD x 3 - October 2022 - residual disease in LCx and RCA not able to treat surgically, PCI/stent RCA x 2 - January 2023, No intervention - 02/2024 Secondary hyperparathyroidism Primary hypertension Peyronie's disease Mixed hyperlipidemia EBENEZER (generalized anxiety disorder) Erectile dysfunction due to arterial insufficiency Dependence on renal dialysis Sat-Sat-Sat Cigarette nicotine dependence without complication Chronic venous insufficiency Anemia in chronic kidney disease Monoclonal (M) protein disease, multiple 'M' protein CAD (coronary artery disease) Diabetes mellitus Depression AV fistula left arm Asthmatic bronchitis , chronic PTSD (post-traumatic stress disorder) MGUS (monoclonal gammopathy of unknown significance) History of blood transfusion 2020 Diabetic retinopathy History of myocardial infarction 2021 Surgical History (Updated 06/01/25 @ 11:02 by Denilson Gomez DO) History of cataract removal with insertion of prosthetic lens left eye H/O heart artery stent (~02/2024) x5, PCI/stent prox LAD x 3 - October 2022 - residual disease in LCx and RCA not able to treat surgically, PCI/stent RCA x 2 - January 2023, No intervention - 02/2024, PCI/stent LAD - 01/2025 History of bone marrow biopsy H/O eye surgery right and left repair retina Hx of knee surgery scope at age 17 Hx of vasectomy Family History Mother Liver disease Diabetes Pancreatic cancer Father Diverticulitis Hypertension IBS (irritable bowel syndrome) Stroke Heart disease History of stroke Family history of mental disorder Social History Smoking Status: Former smoker Tobacco Type: cigarettes Substance Use Type: None Substance Abuse Comment: last use approx Apr 2024; Medical card that 2023 Social History Comments: lives with dad Meds Medications and Allergies Allergies ticagrelor (From Brilinta) Allergy (Verified 05/31/25 17:27) shortness of breath Home Medications nitroglycerin 0.4 mg sublingual tablet 0.4 mg sublingual Q5MIN.X3 PRN Chest Pain30 days #25 tabs 11/17/21 [Rx Confirmed 05/31/25] aspirin 81 mg chewable tablet (Children's Aspirin) 81 mg PO QAM 09/10/22 [History Confirmed 05/31/25] isosorbide mononitrate 60 mg tablet,extended release 24 hr 60 mg PO BID 11/12/22[History Confirmed 05/31/25] calcium acetate 667 mg tablet 2,001 mg PO .tidwith meal 11/13/23 [History Confirmed 05/31/25] 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,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,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 (FreeStyle Ramy 3 [place]) #1 ea 03/19/24 [Rx Confirmed 05/31/25] omeprazole 40 mg capsule,delayed release See Rx Instructions .Route .COMPLEX #90caps 04/21/24 [Rx Confirmed 05/31/25] 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 sensor (FreeStyle Ramy 3 Plus Sensor device) #1 ea 05/17/24 [Rx Confirmed 05/31/25] carvedilol 25 mg tablet See Rx Instructions .Route .COMPLEX #180 tabs 07/21/24 [Rx Confirmed 05/31/25] hydralazine 100 mg tablet 100 mg PO BID 30 days #60 tabs 08/07/24 [Rx Confirmed 05/31/25] clopidogrel 75 mg tablet (Plavix) 75 mg PO QAM 08/28/24 [History Confirmed 05/31/25] acetaminophen 500 mg tablet 1,000 mg (2 x 500 mg) PO TID PRN pain 15 days #90 tabs 09/02/24 [Rx Confirmed 05/31/25] atorvastatin 80 mg tablet 80 mg PO QAM 09/16/24 [History Confirmed 05/31/25] insulin lispro 100 unit/mL subcutaneous pen (Humalog KwikPen (U-100) Insulin) See Protocol subcut USEASDIRECTD 10/14/24 [History Confirmed 05/31/25] lisinopril 20 mg tablet See Rx Instructions .Route .COMPLEX #30 tabs 10/18/24 [Rx Confirmed 05/31/25] hydroxyzine HCl 25 mg tablet 25 mg PO QPM anxiety 10/30/24 [History Confirmed 05/31/25] insulin glargine 100 unit/mL (3 mL) subcutaneous pen (Lantus Solostar U-100 Insulin) 20 unit subcut QHS diabetes 10/30/24 [History Confirmed 05/31/25] 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 meter (Accu-Chek Guide Glucose Meter) #1 ea 01/08/25 [Rx Confirmed 05/31/25] gabapentin 100 mg capsule 100 mg PO QHS 01/12/25 [History Confirmed 05/31/25] sertraline 100 mg tablet See Rx Instructions .Route .COMPLEX #90 tabs 01/13/25 [Rx Confirmed 05/31/25] blood sugar diagnostic (Accu-Chek Guide test strips) #100 strips 03/18/25 [Rx Confirmed 05/31/25] furosemide 80 mg tablet 80 mg PO BID 30 days #60 tabs 03/20/25 [Rx Confirmed 05/31/25] famotidine 20 mg tablet See Rx Instructions .Route .COMPLEX #180 tabs 04/13/25 [Rx Confirmed 05/31/25] amlodipine 10 mg tablet 10 mg PO DAILY 30 days #30 tabs 04/22/25 [Rx Confirmed 05/31/25] hydralazine 50 mg tablet 100 mg (2 x 50 mg) PO TID 30 days #180 tabs 06/01/25 [Rx] sacubitril 24 mg-valsartan 26 mg tablet (Entresto) 1 tab PO BID 30 days #60 tabs 06/01/25 [Rx] Exam Physical Exam Vital Signs: Temp Pulse Resp BP Pulse Ox O2 Del Method 97.9 F 73 18 195/93 H 98 Room Air 06/01/25 08:00 06/01/25 08:00 06/01/25 08:00 06/01/25 08:00 06/01/25 08:00 06/01/25 08:00 Const General: cooperative, comfortable and no acute distress Nutritional Appearance: average body habitus Orientation: alert, awake and oriented x3 HEENT Head: normal to inspection Neck Neck: normal visual inspection Chest Chest palpation & inspection: normal inspection of the chest Resp Effort & Inspection: normal respiratory effort Auscultation: clear to auscultation bilaterally Cardio Rate: regular rate Rhythm: regular rhythm Heart Sounds: S1 normal, S2 normal and murmur Pulses: radial pulses present GI Palpation: soft Skin General: no rashes or lesions noted Neuro General: patient alert, patient awake and patient oriented x3 Cognition: normal cognition Speech: speech normal Extrem General: no clubbing, cyanosis or edema Results - Cardiology Labs 05/31/25 17:45 05/31/25 17:45 Lab results: Cardiac Enzymes 05/31/25 Range/Units 17:45 B-Natriuretic Peptide 3885.0 H (5-100) pg/mL CBC 05/31/25 Range/Units 17:45 RBC 4.28 (3.90-5.60) x10E6/uL Hgb 11.9 L (13.0-17.0) g/dL Hct 36.4 L (38.8-50.0) % Plt Count 99 L (150-450) x10E3/uL Neut # (Auto) 2.6 (1.8-7.7) x10E3/uL Lymph # (Auto) 0.5 L (1.00-4.8) x10E3/uL [place]inkler # (Auto) 0.2 (0.0-0.8) x10E3/uL Eos # (Auto) 0.2 (0.0-0.45) x10E3/uL Baso # (Auto) 0.1 (0.0-0.2) x10E3/uL Comprehensive Metabolic Panel 05/31/25 Range/Units 17:45 Sodium 133 L (136-145) mmol/L Potassium 3.8 (3.5-5.1) mmol/L Chloride 96 L (98-107) mmol/L Carbon Dioxide 30.2 (21.0-31.0) mmol/L BUN 26 H (7-25) mg/dL Creatinine 4.64 H D (0.70-1.30) mg/dL Glucose 214 H D (70-100) mg/dL Calcium 8.8 (8.6-10.3) mg/dL Intake and Output 05/31/25 06/01/25 06/01/25 23:59 07:59 15:59 Intake Total 70 / 70 Balance 70 / 70 Intake: IV 70 / 70 niCARdipine 20 mg-*NACL* 20 mg 70 / 70 In 200 ml @ 5 MG/HR 50 mls/hr IV .Q4H RACHELL Rx#:[id number] Other: # Voids 1 # Unmeasured Voids 0 # Bowel Movements 0 Weight 78.4 kg 78.3 kg Date of Last Bowel Movement 05/31/25 05/31/25 Patient Weight 06/01/25 23:59 Weight 78.3 kg A&P - Cardiology (1) Atypical chest pain: Code(s): R07.89 - Other chest pain (2) Hypertensive emergency: Code(s): I16.1 - Hypertensive emergency (3) History of end stage renal disease: Code(s): Z87.448 - Personal history of other diseases of urinary system (4) Type I diabetes mellitus with hypoglycemia: Qualifiers: Diabetes mellitus complication detail: without coma Qualified Code(s): E10.649 - Type 1 diabetes mellitus with hypoglycemia without coma Code(s): E10.649 - Type 1 diabetes mellitus with hypoglycemia without coma (5) Mitral regurgitation: Code(s): I34.0 - Nonrheumatic mitral (valve) insufficiency (6) H/O heart artery stent: Code(s): Z95.5 - Presence of coronary angioplasty implant and graft Plan See above Documented By: Denilson Gomez DO 06/01/25 1059 Signed By: <Electronically signed by Denilson Gomez DO> 06/01/25 1108 [facility] Work Phone: Discharge summary Author Jorge Mederos [facility] August 18, 2023 1:30pm Note Date/Time August 18, 2023 1:31pm [facility] [address] [place] [address] Discharge Summary Signed Patient: Yoel Werner MR#: [id number] : 1985 Acct:[id number] Age/Sex: 38 / M Adm Date: 3 Loc: Room: 8B8523-[address]: Jorge Mederos DO Copies to: Eusebio Olivares,DO Jorge Mederos, DO~ Providers Date of Discharge: 08/18/23 Discharging [...] anxiety who presented with chest pain to [facility] () ER and transferred for the evaluation [...] two drug-eluting stents . Pt transferred to [facility] as chest pain did not resolve despite flat troponin elevation. Pt chest pain had resolved upon arrival to [facility] and repeat troponin here was less than at [facility]. Cardiology cleared pt for discharge and made [...] UNITS SUBCUTANEOUSLY ONCE A DAY Follow Up: [facility] [Outside] (Please call to schedule an appointment.) Eusebio Olivares DO [Primary Care Provider] - (His office is currently closed. Please call to schedule a post hospital appointment.) Documented By: Jorge Mederos DO 08/18/23 132 8 Signed By: <Electronically signed by Jorge Mederos DO> 08/18/23 1330 [facility] Work Phone: Evaluation + [facility] Evaluation noteNo InformationNort [employer] Other Evaluation noteNo assessment information available [facility] Work Phone: Evaluation note* Diagnosis Onset Date Resolution Status MGUS (monoclonal gammopathy of unknown significance) acute [facility] Work Phone: Evaluation note* Diagnosis Onset Date Resolution Status MGUS (monoclonal gammopathy of unknown significance) acute Acute congestive heart failure acute PINO (acute kidney injury) [place] Anemia acute CAD (coronary artery disease) acute Chest pain acute Chronic kidney disease, stage IV (severe) acute CKD (chronic kidney disease) acute Diabetes acute HTN (hypertension) acute Syncope acute Uncontrolled hypertension [place] [facility] Work Phone: Evaluation note* Diagnosis Onset Date Resolution Status Acute congestive heart failure acute PINO (acute kidney injury) [place] Anemia acute CAD (coronary artery disease) acute Chest pain acute Chronic kidney disease, stage IV (severe) acute CKD (chronic kidney disease) acute Diabetes acute HTN (hypertension) acute Syncope acute Uncontrolled hypertension [place] MGUS (monoclonal gammopathy of unknown significance) acute [facility] Work Phone: Evaluation note* Diagnosis Screening for genitourinary condition Screening for other and unspecified genitourinary condition [facility] Diagnosis Onset Date Resolution Status Acute congestive heart failure acute PINO (acute kidney injury) [place] Anemia acute CAD (coronary artery disease) acute Chest pain acute Chronic kidney disease, stage IV (severe) acute CKD (chronic kidney disease) acute Diabetes acute HTN (hypertension) acute Syncope acute Uncontrolled hypertension [place] MGUS (monoclonal gammopathy of unknown significance) acute Stage 3b chronic kidney disease (CKD) acute [facility] Work Phone: Evaluation note* Diagnosis Onset Date Resolution Status Acute congestive heart failure acute PINO (acute kidney injury) [place] Anemia acute CAD (coronary artery disease) acute Chest pain acute Chronic kidney disease, stage IV (severe) acute CKD (chronic kidney disease) acute Diabetes acute HTN (hypertension) acute Syncope acute Uncontrolled hypertension [place] MGUS (monoclonal gammopathy of unknown significance) acute Stage 3b chronic kidney disease (CKD) acute Chest pain acute Diabetes acute [facility] Work Phone: Evaluation note* Diagnosis Onset Date Resolution Status Acute congestive heart failure acute PINO (acute kidney injury) [place] Anemia acute CAD (coronary artery disease) acute Chest pain acute Chronic kidney disease, stage IV (severe) acute CKD (chronic kidney disease) acute Diabetes acute HTN (hypertension) acute Syncope acute Uncontrolled hypertension [place] MGUS (monoclonal gammopathy of unknown significance) acute Stage 3b chronic kidney disease (CKD) acute Anemia acute Chest pain acute CKD (chronic kidney disease) acute Diabetes acute Triple vessel disease of the heart acute [facility] Work Phone: Evaluation note* Diagnosis Onset Date Resolution Status MGUS (monoclonal gammopathy of unknown significance) acute Stage 3b chronic kidney disease (CKD) acute Anemia acute Chest pain acute CKD (chronic kidney disease) acute Diabetes acute Triple vessel disease of the heart acute [facility] Work Phone: Evaluation note* Diagnosis Onset Date Resolution Status Anemia acute Chest pain acute CKD (chronic kidney disease) acute Diabetes acute Triple vessel disease of the heart acute [facility] Work Phone: evaluation note* Diagnosis Onset Date Resolution Status Anemia acute CAD (coronary artery disease) acute Chest pain acute Chronic kidney disease, stage IV (severe) acute Diabetes acute GERD (gastroesophageal reflux disease) acute History of placement of stent in LAD coronary artery acute Hypertension acute Kidney failure acute [facility] Work Phone: Evaluation note* [...] 3b chronic kidney disease (CKD) acute [facility] Work Phone: Evaluation [facility] [employer] Other Evaluation note* Diagnosis Onset Date Resolution Status MGUS (monoclonal gammopathy of unknown significance) acute Stage 3b chronic kidney disease (CKD) acute [facility] Work Phone: Evaluation note* Diagnosis Onset Date Resolution Status CAD (coronary artery disease) acute Chest pain, rule out acute myocardial infarction acute Diabetes mellitus acute ESRD (end stage renal disease) on dialysis acute [facility] Work Phone: Evaluation note* Diagnosis Onset Date Resolution Status Chest pain, rule out acute myocardial infarction resolved [facility] Work Phone: Evaluation note* Diagnosis Left shoulder pain, unspecified chronicity- Primary Impingement of left shoulder Internal derangement of left shoulder documented in this encounter [facility] HealthcareEvaluation note* Diagnosis Onset Date Resolution Status [...] & vomiting acute AV fistula stenosis acute [facility] Work Phone: Evaluation note* Diagnosis Onset [...] Type 1 diabetes mellitus with hyperglycemia acute [facility] Work Phone: Evaluation note* Diagnosis Onset Date [...] Type 1 diabetes mellitus with hyperglycemia acute [facility] Work Phone: Evaluation note* Diagnosis ASHD (arteriosclerotic heart disease) Coronary atherosclerosis of unspecified type of vessel, [place] or graft Essential hypertension, benign Mixed hyperlipidemia History of MD (myocardial infarction) Old myocardial infarction Status post insertion of drug eluting coronary artery stent ESRD (end stage renal disease) on dialysis (Multi) End stage renal disease Current every day smoker Type 2 diabetes mellitus with chronic kidney disease on chronic dialysis, with long-term current use of insulin (Multi) BMI 22.0-22.9, adult documented in this encounter [facility] Work Phone: Evaluation note* Diagnosis Onset Date Resolution Status Encounter for palliative care acute MGUS (monoclonal gammopathy of unknown significance) acute AV fistula stenosis acute Acute exacerbation of chroni c obstructive airways disease acute ASHD (arteriosclerotic heart disease) acute ESRD (end stage renal disease) on dialysis acute Primary hypertension acute Type 1 diabetes mellitus with hyperglycemia acute AV fistula acute [facility] Work Phone: Evaluation note* Diagnosis Onset Date Resolution Status AV fistula acute Acute hypoxic respiratory failure acute AV fistula acute ESRD (end stage renal disease) on dialysis acute HCAP (healthcare-associated pneumonia) acute Type 1 diabetes mellitus with hyperglycemia acute [facility] Work Phone: Evaluation note* Diagnosis Onset [...] Type 1 diabetes mellitus with hyperglycemia acute [facility] Work Phone: Evaluation note* Diagnosis Onset [...] hyperglycemia acute Acute bronchitis acute Hypoxemia acute [facility] Work Phone: Evaluation note* Diagnosis Onset [...] hyperglycemia acute Acute hypoxic respiratory failure resolved [facility] Work Phone: Evaluation note* Diagnosis Onset [...] (arteriosclerotic heart disease) acute Primary hypertension acute [facility] Work Phone: Evaluation note* Diagnosis Onset Date [...] acute Nicotine addiction acute Primary hypertension acute [facility] Work Phone: Evaluation note* Diagnosis Type 2 diabetes mellitus without complication, with long-term current use of insulin ([facility])- Primary Pain due to onychomycosis of toenails of both feet Hav (hallux abducto valgus), left documented in this encounter [facility] HealthcareEvaluation note* Diagnosis ASHD (arteriosclerotic heart disease) Coronary atherosclerosis of unspecified type of vessel, [place] or graft Congestive heart failure, unspecified HF chronicity, unspecified heart failure type Essential hypertension, benign History of MD (myocardial infarction) Old myocardial infarction Mixed hyperlipidemia Status post insertion of drug eluting coronary artery stent ESRD (end stage renal disease) on dialysis (Multi) End stage renal disease Type 2 diabetes mellitus with chronic kidney disease on chronic dialysis, with long-term current use of insulin (Multi) BMI 21.0-21.9, adult Current every day smoker documented in this encounter [facility] Work Phone: Evaluation note* Diagnosis ASHD (arteriosclerotic heart disease) Coronary atherosclerosis of unspecified type of vessel, [place] or graft History of MD (myocardial infarction) Old myocardial infarction Status post insertion of drug eluting coronary artery stent Aortic valve disorder Aortic valve disorders ESRD (end stage renal disease) on dialysis (Multi) End stage renal disease Vapes nicotine containing substance documented in this encounter [facility] Work Phone: Evaluation note* Diagnosis Type 2 diabetes mellitus without complication, with long-term current use of insulin- Primary Pain due to onychomycosis of toenails of both feet Hav (hallux abducto valgus), left documented in this encounter [facility] note* Diagnosis Mitral valve insufficiency, unspecified etiology documented in this encounter [facility] Work Phone: Evaluation note* Diagnosis ASHD (arteriosclerotic heart disease) Coronary atherosclerosis of unspecified type of vessel, [place] or graft History of MD (myocardial infarction) Old myocardial infarction Status post insertion of drug eluting coronary artery stent Nonrheumatic mitral valve regurgitation Essential (primary) hypertension Unspecified essential hypertension Mixed hyperlipidemia Type 2 diabetes mellitus with chronic kidney disease on chronic dialysis, with long-term current use of insulin (Multi) ESRD (end stage renal disease) on dialysis (Multi) End stage renal disease BMI 23.0-23.9, adult ACEI/ARB contraindicated Current every day smoker Vapes nicotine containing substance Essential hypertension, benign documented in this encounter [facility] Work Phone: Evaluation note* Diagnosis Nonrheumatic mitral valve regurgitation documented in this encounter [facility] Work Phone: Evaluation note* Diagnosis Severe mitral regurgitation- Primary documented in this encounter [facility] Work Phone: History and physical note Author Isidoro Mesa [facility] August 13, 2022 4:55am Note Date/Time August 13, 2022 4:18am [facility] [address] [place] [address] Hospitalist H&P Signed Patient: Yoel Werner MR#: [id number] : 1985 Acct:[id number] Age/Sex: 37 / M Adm Date: 2 Loc: Room: [address] [place] [address] Type: ADM INOo Attending Dr: Isidoro Mesa [...] % (Auto) 29.2 % (.) 08/12/22 23:58 Winkler % (Auto) 8.9 % (.) 08/12/22 23:58 Eos % (Auto) 2.7 % (.) 08/12/22 23:58 Baso % (Auto) 1.5 % (.) 08/12/22 23:58 Nucleat RBC Rel Count 0.1 /100 WBC (0-0.5) 08/12/22 23:58 Neut # (Auto) 3.1 x10E3/uL (1.8-7.7) 08/12/22 23:58 Lymph # (Auto) 1.6 x10E3/uL (1.00-4.8) 08/12/22 23:58 Winkler # (Auto) 0.5 x10E3/uL (0.0-0.8) 08/12/22 23:58 [...] pH 5.5 (5.0-9.0) 08/13/22 00:49 Ur Specific [place] 1.011 (1.001-1.030) 08/13/22 00:49 Urine Protein 300 [...] signed by Isidoro Mesa DO> 08/13/22 0455 [facility] Work Phone: History and physical note Author Isidoro Mesa [facility] March 01, 2024 6:46am Note Date/Time March 01, 2024 6:32 am [facility] [address] [place] [address] Hospitalist H&P Signed Patient: Yoel Werner MR#: [id number] : 1985 Acct:[id number] Age/Sex: 38 / M Adm Date: 4 Loc: 4N Room: [address] [place] [address] Type: ADM IN Attending Dr: Isidoro Mesa [...] this 3-month period, he did go to [facility] yesterday was diagnosed with bronchitis, received a [...] negative unless noted below or in HPI [facility] Medical History Cataract Acute exacerbation of chronic [...] % (Auto) 8.0 % (.) 03/01/24 02:55 Winkler % (Auto) 5.4 % (.) 03/01/24 02:55 Eos % (Auto) 0.2 % (.) 03/01/24 02:55 Baso % (Auto) 0.8 % (.) 03/01/24 02:55 Nucleat RBC Rel Count 0.0 /100 WBC (0-0.5) 03/01/24 02:55 Neut # (Auto) 8.8 x10E3/uL (1.8-7.7) H 03/01/24 02:55 Lymph # (Auto) 0.8 x10E3/uL (1.00-4.8) L 03/01/24 02:55 Winkler # (Auto) 0.5 x10E3/uL (0.0-0.8) 03/01/24 02:55 [...] Acute hypoxic respiratory failure: Plan: Admit to [facility] floor, inpatient status ? Continue with supplemental [...] by Isidoro Mesa DO> 03/01/24 0646 [facility] Work Phone: History and physical note Author Judd Jacobs [facility] Note Date/Time November 01, 2024 11: 46pm [facility] [address] [place] [address] Hospitalist H&P Signed Patient: Yoel Werner MR#: [id number] : 1985 Acct:[id number] Age/Sex: 39 / M Adm Date: 5 Loc: Room: [address] [place] [address] Type: ADM INOo Attending Dr: Judd Jacobs [...] anithypertensive medications VTE prophyalxis- SCDs FULL CODE [facility] Medical History Contusion of right lower extremity [...] Confirmed 11/01/24] 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 meter,continuous (FreeStyle Ramy 3 [place]) #1 ea 03/19/24 [Rx Confirmed 11/01/24] omeprazole [...] % (Auto) 13.5 % (.) 11/01/24 20:49 Winkler % (Auto) 6.3 % (.) 11/01/24 20:49 Eos % (Auto) 5.7 % (.) 11/01/24 20:49 Baso % (Auto) 2.1 % (.) 11/01/24 20:49 Nucleat RBC Rel Count 0.0 /100 WBC (0-0.5) 11/01/24 20:49 Neut # (Auto) 4.3 x10E3/uL (1.8-7.7) 11/01/24 20:49 Lymph # (Auto) 0.8 x10E3/uL (1.00-4.8) L 11/01/24 20:49 Winkler # (Auto) 0.4 x10E3/uL (0.0-0.8) 11/01/24 20:49 [...] pH 7.0 (5.0-9.0) 11/01/24 21:56 Ur Specific [place] 1.010 (1.001-1.030) 11/01/24 21:56 Urine Protein 200 [...] 1 Documented By: Judd Jacobs MD 11/01/24 6447 Signed By: <Electronically signed by Judd Jacobs MD> 11/01/24 1450 [facility] Work Phone: History general Narrative - Reported* Type Description Date Medical History HYPERTENSION Medical History DIABETES MELLITUS TY PE 2 WITH HYPERGLYCEMIAGAD GENERALIZED ANXIETY DISORDER Medical History CHRONIC VENOUS INSUFFICIENCY Surgical History LEFT KNEE SURGERY Surgical History VASECTOMY Surgical History 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 Hospitalization History SEE ABOVE [facility] Other history general Narrative - Reported* Type [...] COMBINED SYSTOLIC AND DIASTOLIC HEART FAILURE 11/13/2021 [facility] Other history general Narrative - Reported* Type [...] COMBINED SYSTOLIC AND DIASTOLIC HEART FAILURE 11/13/2021 [facility] Other history general Narrative - Reported* Type [...] HEART FAILURE 11/13/2021 Hospitalization History SYNCOPE 07/2022 [facility] Other history general Narrative - Reported* Type [...] 07/2022 Hospitalization History MINOR HEART ATTACK 2022 [facility] Other Hisdati general Narrative - Reported* Type Description Date [...] 07/2022 Hospitalization History MINOR HEART ATTACK 2022 [facility] Other Hisyeej general Narrative - Reported* Type Description Date [...] 07/2022 Hospitalization History MINOR HEART ATTACK 2022 [facility] Other [employer] general Narrative - ReportedMar[facility]: [facility] Other History general Narrative - Reported* Type [...] ATTACK 2022 Hospitalization History HEART ATTACK 12/2022 [facility] Other Hislyxv general Narrative - ReportedGrantAdler Other [employer] general Narrative - Reported* Type Description Date [...] ATTACK 2022 Hospitalization History HEART ATTACK 12/2022 [facility] Other History general Narrative - Reported* Type [...] ATTACK 2022 Hospitalization History HEART ATTACK 12/2022 [facility] Other Hospital course Narrative No data available for this section [facility] Hospital Discharge instructions Additional Instructions Continue current meds You may return at any time [facility]: Hospital Discharge instructions Additional Instructions Follow-up with your primary care doctor Return to ED if develop worsening symptoms or [facility] Work Phone: Hospital Discharge instructions Additional Instructions If your symptoms return/worsen or you develop any further concerns or symptoms please see your doctor or return to the emergency department immediately.[facility] Work Phone: Hospital Discharge instructions Additional Instructions Monitor glucose levels as before.[facility] Work Phone: Hospital Discharge instructions Additional Instructions [...] doctor or pharmacist, without first calling the finance admin who implanted the stent. If you require [...] weight lifting, stair steppers, etc. until the finance admin approves these activities. Check with the finance admin on your first follow-up visit. CALL YOUR PHYSICIAN at [phone]: -If bleeding should occur from the catheter insertion site- apply pressure to the site then immediately call us. -Report any fever, redness, drainage, increased swelling, or firmness at the catheter insertion site. Some bruising or slight swelling may be present at the time of discharge. -Should arm or leg become cold, numb, white, or blue, contact the finance admin immediately. -IF you should experience episodes of [...] is recommended. Please call Central Scheduling at [phone] to schedule your appointment.] The attending finance admin or [facility] [facility] nurse clinician should provide you with specific instructions regarding activity, diet, medications, and further follow up for you. Follow the medication instructions provided on your discharge. If the dosages and instructions on this sheet differ from the dosage and instructions on the bottle, follow the instructions on the bottle. [facility] is not responsible for incorrect prescription information provided by the patient during their visit. Do not stop your medications without consulting your health care provider. Please take the list with you to your next doctor's appointment.[facility] Work Phone: Hospital Discharge instructions Additional Instructions Continue Hemodialysis as directed.[facility] Work Phone: Hospital Discharge instructions Additional Instructions [...] pain shortness of breath or any other concernsCorey Hospital Work Phone: Hospital Discharge instructions Additional Instructions If your symptoms return/worsen or you develop any further concerns or symptoms please see your doctor or return to the emergency department immediately. It is imperative that you go over today's visit and all results with your primary care provider.[facility] Work Phone: Hospital Discharge instructions Additional Instructions [...] doctor or pharmacist, without first calling the finance admin who implanted the stent. If you require [...] weight lifting, stair steppers, etc. until the finance admin approves these activities. Check with the finance admin on your first follow-up visit. CALL YOUR FEDERAL MEDIATION COMMISSIONER: -If bleeding should occur from the catheter insertion site- apply pressure to the site then immediately call us. -Report any fever, redness, drainage, increased swelling, or firmness at the catheter insertion site. Some bruising or slight swelling may be present at the time of discharge. -Should arm or leg become cold, numb, white, or blue, contact the finance admin immediately. -IF you should experience episodes of [...] Cardiopulmonary Rehabilitation program is recommended. The attending finance admin or a nurse clinician should provide you with specific instructions regarding activity, diet, medications, and further follow up for you. Follow the medication instructions provided on your discharge. If the dosages and instructions on this sheet differ from the dosage and instructions on the bottle, follow the instructions on the bottle. [facility] is not responsible for incorrect prescription information provided by the patient during their visit. Do not stop your medications without consulting your health care provider. Please take the list with you to your next doctor's appointment.[facility] Work Phone: Hospital Discharge instructions Additional Instructions Continue to monitor glucose levels before meals and at bedtime. Keep a record of these and take it with you to your follow-up appointment. Continue hemodialysis treatments as before.[facility] Work Phone: Hospital Discharge instructions Additional Instructions Your blood sugars stabilized. Your blood pressure went back up. It did come down with the hydralazine I gave you, but this did not last. We talked about this but you do not want to be admitted. Continue the hydralazine 3 times daily as changed by Dr. Gomez. Follow up with your doctor. Follow up for dialysis on Saturday as well. If you have any significant problems or concerns, you are always welcome to come back here.[facility] Work Phone: Hospital Discharge instructions Additional Instructions Continue hemodialysis treatments as before Continue to monitor glucose levels as before[facility] Work Phone: Progress note No data available for this section [facility] Progress note Author Bryce Coy [facility] March 02, 2024 1:36pm Note Date/Time March 02, 2024 1:36 pm [facility] [address] [place], [place] [id number] Nephrology Progress Note Signed Patient: Yoel Werner MR#: [id number] : 1985 Acct:[id number] Age/Sex: 38 / M Adm Date: 4 Loc: 4N Room: 4G5432-7 Type: ADM IN Attending Dr: Julio Allen MD Copies to: ~ Date of Service: 03/02/2024 Subjective Subjective Narrative: Mr. Werner is a 58-year-old white male with history of ESRD related to DM2 ondialysis on MWF schedule at [facility]. He presented to the hospital with shortness of breath and cough that has been getting worse recently. He reported coughing for the last 3 months that usually clear sputum. No hemoptysis or green sputum. He denies any fever or chills. He was seen at [facility] on 02/28 and was diagnosed with [...] 16 132/56 L 98 Room Air 03/02/24 09:25 03/02/24 11:30 03/02/24 09:25 03/02/24 11:30 03/02/24 09:25 03/02/24 09:25 Narrative: Constitutional: Appears comfortable, occasional cough. [...] Tab.Chew) 81 mg PO QAM RACHELL Stop: 03/01/25 08:59 Last Admin: 03/02/24 08:30 Dose: 81 mg Atorvastatin Calcium (Atorvastatin 80 Mg Tablet) 80 mg PO QPM RACHELL Stop: 03/01/25 20:59 Last Admin: 03/01/24 21:28 Dose: 80 mg Calcium Acetate (Calcium Acetate 667 Mg Capsule) 1,334 mg PO TID.WITH.MEALS [facility] Stop: 03/01/25 11:59 Last Admin: 03/02/24 08:30 Dose: 1,334 mg Carvedilol (Carvedilol 25 Mg Tablet) 25 mg PO BID RACHELL Stop: 03/01/25 08:59 Last Admin: 03/02/24 08:30 Dose: 25 mg Clopidogrel Bisulfate (Clopidogrel Bisulfate 75 Mg Tablet) 75 mg PO QAM RACHELL Stop: 03/01/25 08:59 Last Admin: 03/02/24 08:28 [...] 40 Mg Tablet) 40 mg PO BID@0800,1600 [facility] Stop: 03/01/25 15:59 Last Admin: 03/02/24 08:28 Dose: 40 mg Glucose (Dextrose 40% Gel 15 Gm Tube) 0 gm PO PRN PRN PRN Reason: Hypoglycemia Stop: 03/01/25 06:40 Guaifenesin (Guaifenesin 600 Mg Tab.Er.12h) 1,200 mg PO BID RACHELL Stop: 03/01/25 08:59 Last Admin: 03/02/24 08:30 Dose: 1,200 mg Heparin Sodium (Porcine) (Heparin 5,000 Unit/Ml Vial) 5,000 unit SUBCUT Q12HR [facility] Stop: 03/01/25 09:44 Last Admin: 03/02/24 08:31 Dose: 5,000 unit Heparin Sodium (Porcine) (Heparin 10,000 Unit/10 Ml Vial) 2,000 unit IV PRN PRN PRN Reason: Dialysis Stop: 03/02/25 09:02 Last Admin: 03/02/24 09:57 Dose: 2,000 unit Hydralazine HCl (Hydralazine 50 Mg Tablet) 50 mg PO TID [facility] Stop: 03/01/25 13:59 Last Admin: 03/02/24 08:30 Dose: 50 mg Hydralazine HCl (Hydralazine 20 Mg/Ml Vial) 10 mg IV-PUSH Q4H PRN PRN Reason: if SBP > 185 Stop: 03/01/25 16:55 Ampicillin Sodium/Sulbactam Sodium (Unasyn) 1.5 gm in 100 mls @ 200 mls/hr IV DAILY@1700 [facility] Last Admin: 03/01/24 13:23 Dose: 200 mls/hr Sodium Chloride (0.9% Sodium Chloride 1,000 Ml) 1,000 mls @ 0 mls/hr MISCELLANE.Q0M PRN PRN Reason: Dialysis Stop: 03/02/25 09:02 Last Infusion: 03/02/24 10:09 Dose: Infused Insulin Aspart (Insulin Aspart 300 Units/3 Ml Insuln.Pen) 0 units SUBCUT [facility]; Protocol Stop: 03/01/25 10:29 Last Admin: 03/02/24 08:32 Dose: 9 units Insulin Glargine (Insulin Glargine 300 Units/3 Ml Insuln.Pen) 15 units SUBCUT DAILY [facility] Stop: 03/01/25 10:59 Last Admin: 03/02/24 08:31 Dose: 15 units Isosorbide Mononitrate (Isosorbide Mononitrate 24hr Er 60 Mg Tab.Er.24h) 60 mg PO BID [facility] Stop: 03/01/25 20:59 Last Admin: 03/02/24 08:30 [...] 40 Mg Tablet.Dr) 40 mg PO BID.AC.BKFAST.SUPPER [facility] Stop: 03/01/25 07:29 Last Admin: 03/02/24 08:30 [...] Trenton Salinas M.D.03/01/2024 2:58 PM Dictation Location: [place] [address] Any impression(s) listed above is documentation that [...] disease on hemodialysis in February 2023 at [facility] on MWF schedule (2) Acute [...] <Electronically signed by MD Bryce Coy> 03/02/24 5433 [facility] Work Phone: Reason for referral (narrative) Referred by: TRUONG MOLINA, Mickey Tovar [facility] Reason for referral (narrative)* Consultation (Routine) - Authorized Specialty Diagnoses / Procedures Referred By Contac t Referred To Contact Cardiology Diagnoses ASHD (arteriosclerotic heart disease) Procedures Follow Up In Cardiology Brianna Gomez, [address] [facility] 2, [address] [address] Brianna Gomez, [address] [facility] [address], [address] [address] Referral ID Status Reason Start Date Expiration Date V isits Requested Visits Authorized [id number] Authorized 12/03/2023 12/02/2024 1 1 [facility] Work Phone: Refpqb for referral (narrative)No reason for referral information availableUniversity [facility]als [facility] Work Phone: Reason for visit NarrativeREFERRED BY DR. MEJÍA, NEED FOR AV FISTULA, VEIN MAPPING ORDER SENT [place] [facility] [place]. MEJÍA'S OFFICE AND REFERRAL BEING [employer] Other reason for visit Narrative* CV Imaging (Routine) - Authorized Specialty Diagnoses / Procedures Referred By Contac t Referred To Contact Cardiology Diagnoses Mitral valve insufficiency, unspecified etiology Procedures Transthoracic Echo Limited TN ECHO TRANSTHORC R-T 2D W/WO M-MODE REC F-UP/LMTD TN DOPPLER ECHO COLOR FLOW VELOCITY MAPPING TN DOPPLER ECHO PULSE WAVE W/SPECTRAL F-UP/LMTD STD Brianna Gomez, [address] [facility] [address], [address] [address] Phone: tel: fax: Referral ID Status Reason Start Date Expiration Date Visits Requested Visits Authorized [id number] Authorized Perform Procedure 03/09/2025 03/09/2026 1 1 [facility] Work Phone: Resixp for visit Narrative* Imaging (Emergency) - Authorized Specialty Diagnoses / Procedures Referred By Contac t Referred To Contact Radiology Diagnoses Nonrheumatic mitral valve regurgitation Procedures CT TAVR full contrast chest abdomen pelvis Chaitanya Saavedra, [employer]MENT MECH[employer] [address] [place] [address] Phone: tel: fax: [facility] [address] [place] [address] [place] [address] Phone: tel: fax: Referral ID Status Reason Start Date Expiration Date Visits Requested Visits Authorized [id number] Authorized Perform Procedure 5 07/03/2026 1 1 [facility] Work Phone: Family History No Family History Records FoundUnknown [...] ACF, Uncontrolled HTN AFHD, CHF, Hx of MD Reason for Visit Anemia CAD (coronary artery [...] ACF, Uncontrolled HTN AFHD, CHF, Hx of MD AFHD, CHF, Hx of MD Reason for Visit Anemia CAD (coronary artery disease) Chest pain Chronic kidney disease, stage IV (severe) Diabetes GERD (gastroesophageal reflux disease) History of placement of stent in LAD coronary artery Hypertension Kidney failure Chief Complaint ESRD ESRD ESRD N18.5 I12.9 E87.5 D63.1 N25.81 R80.9 E11.22 left arm injury-recent fistula placed cp r/o ACF, Uncontrolled HTN AFHD, CHF, Hx of MD AFHD, CHF, Hx of MD N18.6 I12.9 E87.5 D63.1 N25.81 R80.9 E11.22 [...] Uncontro lled HTN AFHD, CHF, Hx of MD AFHD, CHF, Hx of MD N18.6 I12.9 E87.5 D63.1 N25.81 R80.9 E11.22 MONOCLONAL Reason for Visit Anemia CAD (coronary artery disease) Chest pain Chronic kidney disease, stage IV (severe) Diabetes GERD (gastroesophageal reflux disease) History of placement of stent in LAD coronary artery Hypertension Kidney failure MGUS (monoclonal gammopathy of unknown significance) Stage 3b chronic kidney disease (CKD) Chief Complaint AFHD, CHF, Hx of MD AFHD, CHF, Hx of MD N18.6 I12.9 E87.5 D63.1 N25.81 R80.9 E11.22 [...] August 28 1:27am CAP (community acquired pneumonia) Jan2024 1:27am Chronic 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 August 28, 2024 1:27am Cough with hemoptysis August 28, 2024 1:27am ESRD on hemodialysis August 28, 2024 1:27am Hypertension August 28, 2024 1 :27am Pulmonary edema August 28, 2024 1 :27am Type 1 diabetes mellitus August 28, 2 025 1:27am Chief Complaint Admit Date [...] August 28 1:27am CAP (community acquired pneumonia) [facility] 2024 1:27am Chronic combined systolic (c ongestive) [...] August 28 1:27am CAP (community acquired pneumonia) Aug 2024 [...] 2024 1 :27am ASHD (arteriosclerotic heart disease) Leandro luna 2024 1:01pm End-stage renal disease (ESRD) August [...] 28, 2024 1:27am CAP (community acquired pneumonia) 2024 1:27am Chronic 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 August 28, 2024 1:27am Hypertension August 28, 2024 1 :27am Pulmonary edema August 28, 2024 1 :27am Type 1 diabetes mellitus August 28 025 1:27am Type 2 diabetes mellitus wit h diabetic chronic kidney disease August 28, 2024 1:27am ASHD (arteriosclerotic heart disease) [facility] 2024 1:01pm ESRD on hemodialysis September 02, 2024 1:01pm Insomnia September 02, 2024 1 :01pm Primary hypertension September 02, 2024 1:01pm Wellness examination September 02, 2024 1:01pm CAP (community acquired pneumonia) [facility] ry 2024 1:01pm Nicotine addiction September 02, 2024 1 :01pm Anemia of renal disease September 16 1:09am CAP (community acquired pneumonia) [facility] 2024 1:09am Constipation September 16, 2024 1 :09am COVID-19 September 16, 2024 1 :09am ESRD on hemodialysis September 16, 2024 1:09am Hypertensive CKD, ESRD on dialysis [facility] 2024 1:09am Secondary hyperparathyroidism September 162024 [...] 2024 1:27am Hypertensive CKD, ESRD on dialysis [facility] 2024 1:27am Secondary hyperparathyroidism August 282024 1:27am CAP (community acquired pneumonia) [facility] 2024 1:27am Chronic 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 August 28, 2024 1:27am Hypertension August 28, 2024 1 :27am Pulmonary edema August 28, 2024 1 :27am Type 1 diabetes mellitus August 28 025 1:27am Type 2 diabetes mellitus wit h diabetic chronic kidney disease August 28, 2024 1:27am ASHD (arteriosclerotic heart disease) [facility] 2024 1:01pm Insomnia September 02, 2024 1 :01pm Primary hypertension September 02, 2024 1:01pm Wellness examination September 02, 2024 1:01pm ESRD on hemodialysis September 02, 2024 1:01pm CAP (community acquired pneumonia) [facility] 2024 1:01pm Nicotine addiction September 02, 2024 1 :01pm Anemia of renal disease September 16 1:09am CAP (community acquired pneumonia) [facility] 2024 1:09am Constipation September 16, 2024 1 :09am COVID-19 September 16, 2024 1 :09am ESRD on hemodialysis September 16, 2024 1:09am Hypertensive CKD, ESRD on dialysis Aug 2024 1:09am Secondary hyperparathyroidism September 162024 1:09am ASHD (arteriosclerotic heart disease) Fe bruary 2024 12:55pm Primary hypertension October 14, 2024 [...] 2024 1:27am ASHD (arteriosclerotic heart disease) [facility] 2024 1:01pm Insomnia September 02, 2024 1 [...] 2024 1:09am Hypertensive CKD, ESRD on dialysis Aug 2024 1:09am Secondary hyperparathyroidism September 162024 1:09am [...] 2024 1:27am Hypertensive CKD, ESRD on dialysis [facility] 2024 1:27am Secondary hyperparathyroidism August 282024 1:27am CAP (community acquired pneumonia) [facility] 2024 1:27am Chronic 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 August 28, 2024 1:27am Hypertension August 28, 2024 1 :27am Pulmonary edema August 28, 2024 1 :27am Type 1 diabetes mellitus August 28 1:27am Type 2 diabetes mellitus wit h diabetic chronic kidney disease August 28, 2024 1:27am ASHD (arteriosclerotic heart disease) [facility] 2024 1:01pm Insomnia September 02, 2024 1 :01pm Primary hypertension September 02, 2024 1:01pm Wellness examination September 02, 2024 1:01pm ESRD on hemodialysis September 02, 2024 1:01pm CAP (community acquired pneumonia) [facility] 2024 1:01pm Nicotine addiction September 02, 2024 1 :01pm Anemia of renal disease September 16 1:09am CAP (community acquired pneumonia) [facility] 2024 1:09am Constipation September 16, 2024 1 :09am COVID-19 September 16, 2024 1 :09am ESRD on hemodialysis September 16, 2024 1:09am Hypertensive CKD, ESRD on dialysis [facility] 2024 1:09am Secondary hyperparathyroidism September 162024 [...] 2024 1:27am ASHD (arteriosclerotic heart disease) Ja nuary 2024 1:01pm Insomnia September 02, 2024 1 :01pm Primary hypertension September 02, 2024 1:01pm Wellness examination September 02, 2024 1:01pm ESRD on hemodialysis September 02, 2024 1:01pm CAP (community acquired pneumonia) [facility] 2024 1:01pm Nicotine addiction September 02, 2024 1 :01pm Anemia of renal disease September 16 1:09am CAP (community acquired pneumonia) [facility] 2024 1:09am Constipation September 16, 2024 1 :09am COVID-19 September 16, 2024 1 :09am ESRD on hemodialysis September 16, 2024 1:09am Hypertensive CKD, ESRD on dialysis [facility] 2024 1:09am Secondary hyperparathyroidism September 162024 1:09am [...] November 01, 2024 10: 56pm vomiting, weakness March 17th, 2025 12: 02pm Elevated BP December 16, 2024 [...] 10:56pm Type 1 diabetes mellitus with hyperglyce [email or web address] November 01, 2024 10:56pm ESRD (end stage [...] f/u January 12, 2025 2:40p m hx MD, ashd, mixed hyperlipidemia January 192024 8:01am hx MD, ashd, mixed hyperlipidemia January 212024 10:39am Reason [...] 10:56pm Type 1 diabetes mellitus with hyperglyce [facility] [[email or web address]] November 01, 2024 10:56pm ESRD (end stage renal disease) on dialys is November 01, 2024 10:56pm T wave inversion in EKG November 01, 2024 10:56pm Uncontrolled hypertension November 01 10:56pm ASHD (arteriosclerotic heart disease) Ma y 2024 2:40pm Chronic bronchitis, mucopurulent December 2:40pm Chronic heart failure with p reserved ejection fraction (HFpEF) January 12, 2025 2:40pm Dependence on renal dialysis January 12, 2:40pm ESRD (end stage renal disease) January 12, 2025 2:40pm Nicotine addiction January 12, 2025 2:40p m Primary hypertension January 12, 2025 2:40 pm Right shoulder pain January 12, 2025 2:40p m Type 1 diabetes mellitus with hyperglyce [facility] [[email or web address]] January 12, 2025 2:40pm Chief Complaint Admit Date Fall October 30, 2024 8:1 0am vomiting, weakness November 01, 2024 10: 56pm vomiting, weakness November 02, 2024 12: 02pm Elevated BP December 16, 2024 11: 43pm Amb Documentation December 17, 2024 1:19pm 3 month f/u January 12, 2025 2:40p m hx MD, ashd, mixed hyperlipidemia January 192024 8:01am Chief Complaint Admit Date 3 month f/u January 12, 2025 2:40p m hx MD, ashd, mixed hyperlipidemia January 192024 8:01am hx MD, ashd, mixed hyperlipidemia January 212024 10:39am C/O [...] Pain from arteriovenous fistula March 192024 10:44am Chief Complaint Admit Date hx MD, ashd, mixed hyperlipidemia January 192024 8:01am hx MD, ashd, mixed hyperlipidemia January 212024 10:39am C/O PAIN IN ACCESS ARM; GFS L ARM 10A [facility] 2024 10:44am 18.6 April 01, 2025 10 :45am ESRD April 13, 2025 11 :42am Reason for Visit Admit Date Pain from arteriovenous fistula March 192024 10:44am Chief Complaint Admit Date C/O PAIN IN ACCESS ARM; GFS L ARM 10A [facility] 2024 10:44am 18.6 April 01, 2025 10 :45am ESRD April 13, 2025 11 :42am Amb Documentation April 14, 2025 10 :11am [facility] ER f/u April 22, 2025 10:32am Reason for Visit Admit Date Pain from arteriovenous fistula March 192024 10:44am ASHD (arteriosclerotic heart disease) Se pt2024 10:32am Chronic bronchitis, mucopurulent Septemb er 2024 10:32am Chronic heart failure with p reserved ejection fraction (HFpEF) April 22, 2025 10:32am Dependence on renal dialysis April 222024 10:32am ESRD (end stage renal disease) April 22, 2025 10:32am Nicotine addiction April 22, 2025 10:32am Primary hypertension April 22, 2025 10:32am Right shoulder pain April 22, 2025 10:32am Type 1 diabetes mellitus with hyperglyce nida April 22, 2025 10:32am Chief Complaint Admit Date C/O PAIN IN ACCESS ARM; GFS L ARM 10A [facility] 2024 10:44am 18.6 April 01, 2025 10 :45am ESRD April 13, 2025 11 :42am Amb Documentation April 14, 2025 10 :11am [facility] ER f/u April 22, 2025 10:32am low blood sugar May 06, 2025 5:24am Reason for Visit Admit Date Pain from arteriovenous fistula March 192024 10:44am ASHD (arteriosclerotic heart disease) Se ptember 2024 10:32am Chronic bronchitis, mucopurulent Septemb er 2024 10:32am Chronic heart failure with p reserved ejection fraction (HFpEF) April 22, 2025 10:32am Dependence on renal dialysis April 222024 10:32am ESRD (end stage renal disease) April 22, 2025 10:32am Nicotine addiction April 22, 2025 10:32am Primary hypertension April 22, 2025 10:32am Right shoulder pain April 22, 2025 10:32am Type I diabetes mellitus with hypoglycem ia April 22, 2025 10:32am ESRD (end stage renal disease) May 06, 2025 5:24am History of diabetes mellitus April 192024 5:24am History of end stage renal disease Septe mber 2024 5:24am Hypoglycemia May 06, 2025 5:24am Type I diabetes mellitus with hypoglycem ia May 06, 2025 5:24am Chief Complaint Admit Date C/O PAIN IN ACCESS ARM; GFS L ARM 10A [facility] 2024 10:44am 18.6 April 01, 2025 10 :45am ESRD April 13, 2025 11 :42am Amb Documentation April 14, 2025 10 :11am [facility] ER f/u April 22, 2025 10:32am low blood sugar May 06, 2025 5:24am Blood sugar/Pressure issues May 7:52pm Chief Complaint Admit Date C/O PAIN IN ACCESS ARM; GFS L ARM 10A [facility] 2024 10:44am 18.6 April 01, 2025 10 :45am ESRD April 13, 2025 11 :42am Amb Documentation April 14, 2025 10 :11am [facility] ER f/u April 22, 2025 10:32am low blood sugar May 06, 2025 5:24am Blood sugar/Pressure issues May 7:52pm chest pain May 31, 2025 8 :59pm Reason for Visit Admit Date Pain from arteriovenous fistula March 192024 10:44am ASHD (arteriosclerotic heart disease) Se ptember 2024 10:32am Chronic bronchitis, mucopurulent Septemb er 2024 10:32am Chronic heart failure with p reserved ejection fraction (HFpEF) April 22, 2025 10:32am Dependence on renal dialysis April 222024 10:32am ESRD (end stage renal disease) April 22, 2025 10:32am Nicotine addiction April 22, 2025 10:32am Primary hypertension April 22, 2025 10:32am Right shoulder pain April 22, 2025 10:32am Type I diabetes mellitus with hypoglycem ia April 22, 2025 10:32am ESRD (end stage renal disease) May 06, 2025 5:24am History of diabetes mellitus April 192024 5:24am History of end stage renal disease Septe [facility] 2024 5:24am Hypoglycemia May 06, 2025 5:24am Type I diabetes mellitus with hypoglycem ia May 06, 2025 5:24am Hypertensive emergency May 31 8:59pm Reason for Visit Admit Date Pain from arteriovenous fistula March 192024 10:44am ASHD (arteriosclerotic heart disease) Se ptember 2024 10:32am Chronic bronchitis, mucopurulent Septemb er 2024 10:32am Chronic heart failure with p reserved ejection fraction (HFpEF) April 22, 2025 10:32am Dependence on renal dialysis April 222024 10:32am ESRD (end stage renal disease) April 22, 2025 10:32am Nicotine addiction April 22, 2025 10:32am Primary hypertension April 22, 2025 10:32am Right shoulder pain April 22, 2025 10:32am Type I diabetes mellitus with hypoglycem ia April 22, 2025 10:32am ESRD (end stage renal disease) May 06, 2025 5:24am History of diabetes mellitus April 192024 5:24am History of end stage renal disease Septe mber 2024 5:24am Hypoglycemia May 06, 2025 5:24am Type I diabetes mellitus with hypoglycem ia May 06, 2025 5:24am Atypical chest pain May 31, 2025 8 :59pm H/O heart artery stent May 31 8:59pm History of end stage renal disease Octob er 2024 8:59pm Hypertensive emergency May 31 8:59pm Hypertensive urgency May 31, 2025 8:59pm Mitral regurgitation May 31, 2025 8:59pm Type I diabetes mellitus with hypoglycem ia May 31, 2025 8:59pm Advance Directives No Advanced Directives Records Found [...] and is followed by nephrology. Hesustained anterior MD in October 2021 with primary revascularization of the LAD with residual circumflex and RCA disease. His left ventricular function at that time was 40 to 45%. He has underlying type 1 diabetes, progressive/chronic kidney disease as noted, ongoing tobacco use, class II angina. * Is [place] [employer] is class IIc and remains hemodynamically stable * Recommendations: Tobacco cessation counseling, initiate isosorbide 30 mg daily for known disease and angina complaints, limited echo to assess LV function, obtain lipid panel and high-sensitivity CRPwe will follow-up again in 6 months * YOEL WERNER is being seen for follow-up of a hospitalization for chest pain. [facility]. * 37-year-old gentleman returns following recent hospitalization for unstable angina and hypertensionand anxiety. We escalated his isosorbide and hydralazine and is feeling much better. * Patient has a prior history of anterior MD in October 2021 with primary revascularization of [...] will review his angiogram from October of year simply to see if he has any targets for revascularization and otherwise follow-up in 3 to 4 months. * YOEL WERNER is being seen for follow-up of a hospitalization for chest pain. [facility]. * 37-year-old gentleman returns following recent hospitalization for unstable angina and hypertensionand anxiety. We escalated his isosorbide and hydralazine and is feeling much better. * Patient has a prior history of anterior MD in October 2021 with primary revascularization of [...] drug-eluting stents. He has had previous anterior MD with revascularization of the LAD. He has [...] drug-eluting stents. He has had previous anterior MD with revascularization of the LAD. He has [...] wo IV contrast Nelida Carrington NP [address] [facility] [address] [place] [address] Referral ID Status Reason Start Date Expiration Date V isits Requested Visits Authorized [id number] Pending Review 09/30/2023 03/28/2024 1 1 Reason Patient c/o Peyronie 's disease, decreased libido and ED Diagnosis 1 Peyronie's disease ( N48.6) Diagnosis 2 Decreased libido (R6 8.82) Diagnosis 3 Erectile dysfunction due to arterial insufficiency (N52.01) Referral Organization [facility] Referring Provider First Name Eusebio Referring Provider Last Name Marshall Referring Provider Specialty Internal Me dicine Referred Organization [facility] Referred Provider Mickey Guerin Referred Address [address] [facility] [address],[place], [place],[address] Referred Provider Specialty Urology Referral Priority Routine [...] ed section and content) Reason Comments Follow-up 6M Follow up for Cor onary Artery Disease Specialty Diagnoses / Procedures Referred By Chapis t Referred To Contact Cardiology Diagnoses ASHD (arteriosclerotic heart disease) Procedures Follow Up In Cardiology Brianna Gomez, [address] [place] [address] 2, [place] [id number] Phone: tel: fax: Brianna Gomez, [address] [place] [address] 2, [place] [id number] Phone: tel: fax: Referral ID Status Reason Start Date Expiration Date V isits Requested Visits Authorized [id number] Authorized 11/24/2024 11/24/2025 1 1 Reason Comments DM Foot Care Dm nail care Reason Comments Follow-up 6m follow up for Art eriosclerotic heart disease Specialty Diagnoses / Procedures Referred By Violaac t Referred To Contact Cardiology Diagnoses ASHD (arteriosclerotic heart disease) Procedures Follow Up In Cardiology Brianna Gomez, [address] [place] [address] 2, [address] [address] Phone: tel: fax: Brianna Gomez, [address] [place] [address] 2, [address] [address] Phone: tel: fax: Referral ID Status Reason Start Date Expiration Date V isits Requested Visits Authorized [id number] Authorized 06/11/2024 06/11/2025 1 1 Reason Comments Follow-up 6 months Specialty Diagnoses / Procedures Referred By Contac t Referred To Contact Cardiology Diagnoses ASHD (arteriosclerotic heart disease) Procedures Follow Up In Cardiology Brianna Gomez, [address] [place] [address] 2, [facility] [address] [place] [address] Phone: tel: fax: Brianna Gomez DO [address] [facility] [address], [facility] [address] [place] [address] Phone: tel: fax: Referral ID Status Reason Start Date Expiration Date V isits Requested Visits Authorized [id number] Pending Review 12/03/2023 12/02/2024 1 1 Reason Comments DM Foot Care Dm Nails Reason Comments Follow-up 6m Reason Comments Follow-up LancetsReferralIssues with fistula; GFS Left arm at 8:[id number] month Follow uplab resultsTBH/ 6 Month Check Up2 WK S/P FISTULOGRAM; GFS LEFT ARM 07/02/23HAVING ARTERIAL SPASMS DURING TREATMENT AND COMPLAINING OF PAIN IN ARM AGAIN; GFS 9Ano energy, cough since this weekend [phone] MONTH FOLLOW UP; DIALYSIS PTUremia and AnemiaF/U FISTULOGRAMRENAL INJ RETACRIT7 WK F/U WITH GFS IN OFFICEHEARTCATHprescription refillF/U LT AVF CREATION 3WKhospital follow upCKD and HTN Reason Comments Returning Patient's Call RETACRIT INJClinicalREFILLAnemia and CKDCKD and AnemiaCKD , Proteinuria, Edema Care Teams (unrecognized sec tion and content) Team Status: Active Member Role Status Dates Eusebio Olivares DO Primary Care Provider Active Team Status: Active Member Role Status Dates Eusebio Olivares DO Primary Care Provider Active Start: January 13, 2025 Bryce Coy MD Attending Provider Active Star t: January 13, 2025 Team Status: Inactive Member Role Status [...] 2025 End: January 21, 2025 Team Status: Active Member Role Status Dates Eusebio Olivares DO Primary Care Provider Active Start: February 09, 2025 Bryce Coy MD Attending Provider Active Star t: February 09, 2025 Team Status: Active Member Role Status Dates Eusebio Olivares DO Primary Care Provider Active Start: March 12, 2025 Nancy Haas MD Attending Provider Active Star t: March 12, 2025 Team Status: Inactive Member Role Status Dates Eusebio Olivares DO Primary Care Provider Active Start: April 01, 2025 End: April 01, 2025 Romain Mendoza MD Attending Provider Active Start: April 01, 2025 End: April 01, 2025 Team Status: Active Member Role Status Dates Eusebio Olivares DO Primary Care Provider Active Start: April 12, 2025 Va Forte APRN Attending Provider Acti ve Start: April 12, 2025 Team Status: Active Member Role Status Dates Eusebio Olivares DO Primary Care Provider Active Start: April 13, 2025 Romain Mendoza MD Attending Provider Active Start: April 13, 2025 Romain Mendoza MD Other Provider Active Start: April 13, 2025 Team Status: Inactive Member Role Status [...] Bryce Coy MD Other Provider Active Start: [facility] 2024 End: November 02, 2024 DAVION Thorne Other Provider Active Start: November 01, 2024 End: November 02, 2024 Angel Mejía MD Other Provider Active Start: [facility] 2024 End: November 02, 2024 Nancy Haas MD Other Provider Active Start: [facility] 2024 End: November 02, 2024 Team Status: [...] Angel Mejía MD Other Provider Active Start: [facility] 2024 Nancy Haas MD Other Provider Active Start: [facility] 2024 Team Status: Active Member Role Status [...] December 16, 2024 End: December 17, 2024 Mickey Gr DO Emergency Provider Active St art: December [...] 2025 Team Status: Active Member Role Status Laisha [...] 28, 2024 End: August 29, 2024 Romain Roy DO Emergency Provider Active Start: August 28, 2024 End: August 29, 2024 Dwayne Little DO Admit Provider Active Start: August 28, 2024 End: August 29, 2024 Law Cano MD Attending Provider Active St art: August 28, 2024 End: August 29, 2024 Angel Mejía MD Other Provider Active Start: 2024 End: August 29, 2024 Team Status: Active Member Role Status Dates Eusebio Olivares DO Primary Care Provider Active Start: August 28, 2024 Sondra Ruvalcaba DO RES Active St art: August 28, 2024 Romain Roy DO Emergency Provider Active Start: August 28, [...] 16, 2024 End: September 17, 2024 Romain Roy DO Emergency Provider Active Start: September 16, [...] Provider Active Start: September 16, 2024 Romain Roy DO Emergency Provider Active Start: September 16, 2024 Julio Allen MD Admit Provider Active Start: September 16, 2024 Angel Mejía MD Attending Provider, Other Provider Active Start: September 16, 2024 Enrique Kirby DO Other Provider Active Start : September 16, 2024 Team Status: Active Member Role Status Dates Eusebio Olivares DO Primary Care Provider Active Start: September 17, 2024 Romain Roy DO Emergency Provider Active Start: September 17, [...] Team Status: Inactive Member Role Status Dates Eusbeio Olivares DO Primary Care Provider Active Start: June 22, 2024 End: June 22, 2024 Dorene Valenzuela MD Admit Provider, Atte nding Provider Active Start: June 22, 2024 End: June 22, 2024 Angel Mejía MD Other Provider Active Start: No [email or web address] End: June 22, 2024 Team Status: Active [...] Provider Active Start: September 16, 2024 Romain Roy DO Emergency Provider Active Start: September 16, [...] March 01, 2024 End: March 02, 2024 Mickey Gr , DO Emergency Provider Active St art: March 01, 2024 End: March 02, 2024 Isidoro Mesa DO Admit Provider Active Start: March 01, 2024 End: March 02, 2024 Bryce Coy MD Other Provider Active Start: 2023 End: March 02, 2024 DAVION Thorne Other Provider Active Start: March 01, 2024 End: March 02, 2024 Angel Mejía MD Other Provider Active Start: Ju ly 2023 End: March 02, 2024 Nancy Haas MD Other Provider Active Start: J 2023 End: March 02, 2024 Julio Allen MD Attending Provider Active Start: March 01, 2024 End: March 02, 2024 Team Status: Active Member Role Status Dates Eusebio Olivares DO Primary Care Provider Active Start: March 01, 2024 Mickey Gr DO Emergency Provider Active St art: March 01, 2024 Isidoro Mesa DO Admit Provider Active Start: March 01, 2024 Chung Maria MD Other Provider Active Start: J 2023 Bryce Coy MD Attending Provider, Other Provider A ctive Start: March 01, 2024 DAVION Thorne Other Provider Active Start: March 01, 2024 Angel Mejía MD Other Provider Active Start: Ju ly 2023 Nancy Haas MD Other Provider Active Start: J [email or web address] Team Status: Active Member Role Status Dates Eusebio Olivares DO Primary Care Provider Active Start: March 04, 2024 ROCIO Sharp Attending Provider Active St art: March 04, 2024 Team Status: Inactive Member Role Status Dates Eusebio Olivares DO Primary Care Provider Active Start: March 09, 2024 End: March 10, 2024 Romain Roy DO Emergency Provider Active Start: March 09, 2024 End: March 10, 2024 Kim Renteria MD Admit Provider, Atte nding Provider Active Start: March 09, 2024 End: March 10, 2024 Angel Mejía MD Other Provider Active Start: 2023 End: March 10, 2024 Team Status: Active Member Role Status Dates Eusebio Olivares DO Primary Care Provider Active Start: March 09, 2024 Romain Roy , Emergency Provider Active Start: March 09, 2024 [...] Care Provider Active Start: March 01, 2024 Mickey Gr DO Emergency Provider Active St art: March [...] Dates Eusebio Ball , DO Primary Care Provide r, Attending Provider Active Start: November 14, 2023 End: November 14, 2023 Team Status: Inactive Member Role Status Eusebio Olivares DO Primary Care Provider Active Start: November 26, 2023 End: November 26, 2023 Romain Mendoza MD Attending Provider Active Start: November 26, 2023 End: November 26, 2023 Team Status: Active Member Role Status Dates Eusebio Olivares , DO Primary Care Provider Active Start: November 26, 2023 Romain Mendoza MD Attending Prov ider, Other Provider Active Start: November 26, 2023 Team Status: Active Member Role Status Dates Eusebio Olivares , DO Primary Care Provider Active Start: October 12, 2023 Nancy Haas MD Attending Provider Active Star t: October 12, 2023 Team Status: Inactive Member Role Status Eusebio Olivares , DO Primary Care Provider Active Romain Mendoza MD Attending Provider Active Team Status: Active Member Role Status Eusebio Olivares , DO [...] Active Brianna Stewart MD Other Provider Active Iraida Byrd MD Other Provider Active Gerald Gross MD Other Provider Active Tiana Anderson APRN Other Provider Active Janine Gonzalez MD Other Provider Active Mathew Glynn MD Other Provider Active Avani Younger MD Other Provider Active Christy Delarosa , [facility]- Other Provider Active Jackie Ross MD Other Provider Active Justino Boss MD Attending Provider Active Team Status: Inactive Member Role Status Dates Mickey Gr , DO Emergency Provider Active Eusebio Olivares , DO Primary Care Provider Active Reina Renae , DO Admit Provider Active Nargis Benítez RN Other Provider Active W Rene Gomez , DO Other Provider Active Nery Najera MD Other Provider Active Brianna Stewart MD Other Provider Active Iraida Byrd MD Other Provider Active Gerald Gross MD Other Provider Active Tiana Anderson APRN Other Provider Active Janine Gonzalez MD Other Provider Active Mathew Glynn MD Other Provider Active Avani Younger MD Other Provider Active Christy Delarosa , [facility] [place]- Other Provider Active Jackie Ross MD Other Provider Active Ross Catherine MD Attending Provider Active Team Status: Inactive Member Role Status Dates Eusebio Olivares , DO Primary Care Provider Active Denilson Gomez , DO Attending Provider Active Angel Mejía MD Other Provider Active Team Status: Inactive Member Role Status Laisha Olivares , DO Primary Care Provider Active Zina Childs PYROMETER TEMPERATURE REGULATOR-C Attending Provider Active Team Status: Inactive Member Role Status Laisha Olivares , DO Primary Care Provider, Attending Pr ovider Active Team Status: Active Member Role Status Lasiha Olivares , DO Primary Care Provider Active Denilson Gomez , DO Attending Provider Active Team Status: Inactive Member Role Status Laisha Olivares , DO Primary Care Provider Active Hector Mann , DO Emergency Provider Active Team Status: Inactive Member Role Status Eusebio Olivares , DO Primary Care Provider, [...] Status: Inactive Member Role Status Laisha Olivares , DO [...] Bradley , DO Emergency Provider Active Eusebio Olivares , DO Primary Care Provider Active Roentgenologist Relationship Specialty Start Date End Date Eusebio Olivares, DO [address] [place] [address] PCP - General Internal Medicine [...] Active Angel Mejía MD Referring Provider Active Roentgenologist Relationship Specialty Start Date End Date Eusebio Olivares, DO [address] [place] [address] PCP - General Internal Medicine 10/01/21 Team Status: Active Member Role Status Dates Mickey Gr , DO Emergency Provider Active Eusebio Olivares , DO Primary Care Provider Active Reina Renae , DO Admit Provider, Attending Provider Active Team Status: Inactive Member Role Status Dates Eusebio Olivares , DO Primary Care Provider Active Law Cano MD Admit Provider Active Jorge Mederos , DO Attending Provider Active Brianna Stewart MD Other Provider Active Bryce Coy MD Other Provider Active Roentgenologist Relationship Specialty Start Date End Date Eusebio Olivares MD [address] [place] [address] PCP - General Internal Medicine 07/18/23 Roentgenologist Relationship Specialty Start Date End Date Eusebio Olivares MD [address] [place] [address] PCP - General Internal Medicine 07/18/23 Team [...] Bryce Coy MD Other Provider Active Start: 2022 End: August 18, 2023 Team Status: [...] 01, 2023 Jorje Small MD Active Start: Pam rivas 2023 Angel Mejía MD Referring Provider Active [...] 2023 End: October 02, 2023 Kavya Chapman , [facility] [place]- Emergency Provider Active Start: October 02, 2023 End: October 02, 2023 Roentgenologist Relationship Specialty Start Date End Date Eusebio Olivares DO [address] [facility] [address] [place] [address] PCP - General Internal Medicine 12/03/23 Brianna Gomez DO [address] [facility] 2, [facility] [address] [place] [address] Consulting Physician Cardiology 12/03/23 Team Status: Active Member Role Status Dates Eusebio Olivares DO Primary Care Provider Active Start: March 09, 2024 Romain Roy DO Emergency Provider Active Start: March 09, 2024 Kim Renteria MD Admit Provider, Atte nding Provider Active Start: March 09, 2024 Roentgenologist Relationship Specialty Start Date End Date Eusebio Olivares MD [address] [place] [address] PCP - General Internal Medicine 07/18/23 Roentgenologist Relationship Specialty Start Date End Date Eusebio Olivares MD [address] [place] [address] PCP - General Internal Medicine 07/18/23 Roentgenologist Relationship Specialty Start Date End Date Eusebio Olivares DO PCP - General Internal Medicine 12/03/23 Brianna Gomez DO [address] [facility] 2, [address] [address] Consulting Physician Cardiology 12/03/23 Roentgenologist Relationship Specialty Start Date End Date Eusebio Olivares MD [address] [place] [address] PCP - General Internal Medicine 07/18/23 Team Status: Active Member Role Status Dates Eusebio Olivares DO Primary Care Provider Active Start: June 15, 2024 Nancy Haas MD Attending Provider Active Star t: June 15, 2024 Team Status: Active Member Role Status Dates Eusebio Olivares DO Primary Care Provider Active Start: August 28, 2024 Sodnra Ruvalcaba , DO RES Active St art: August 28, 2024 Romain Roy DO Emergency Provider Active Start: August 28, 2024 Dwayne Little , Admit Provider , Attending Provider Active Start: August 28, 2024 Team Status: Active Member Role Status Dates Eusebio Olivares DO Primary Care Provider Active Start: September 17, 2024 Romain Roy DO Emergency Provider Active Start: September 17, 2024 Julio Allen MD Admit Provider Active Start: September 17, 2024 Angel Mejía MD Other Provider Active Start: [facility] 2024 Toney Riley MD Other Provider Active Start: September 17, 2024 Crow Conte MD Attending Provider, Other Provider Active Start: September 17, 2024 Roentgenologist Relationship Specialty Start Date End Date Eusebio Olivares DO PCP - General Internal Medicine 12/03/23 Brianna Gomez DO [address] [place] [address] 2, [facility] [address] [place] [address] Consulting Physician Cardiology 12/03/23 Roentgenologist Relationship Specialty Start Date End Date Eusebio Olivares MD [address] [place] [id number] PCP - General Internal Medicine 12/10/24 Roentgenologist Relationship Specialty Start Date End Date Eusebio Olivares MD [address] [place] [id number] PCP - General Internal Medicine 12/10/24 Team [...] Attending Provider Active Start: April 01, 2025 Roentgenologist Relationship Specialty Start Date End Date Eusebio Olivares DO [address] [place] [address] PCP - General Internal Medicine 04/15/25 Brianna Gomez DO [address] [facility] 2, [place] [address] [place] [address] Consulting Physician Cardiology 12/03/23 Team Status: Active Member Role Status Laisha Olivares DO Primary Care Provider Active Start: March 11, 2025 Angel Mejía MD Attending Provider Active Start : March 11, 2025 Team Status: Active Member Role Status Laisha Olivares DO Primary Care Provider Active Start: April 14, 2025 Heather Bryant CMA Attending Provider Active Start: April 14, 2025 Team Status: Inactive Member Role Status Dates Eusebio Olivares DO Primary Care Provider Active Start: April 22, 2025 End: April 22, 2025 Eusebio Olivares DO Attending Provider Active Sta rt: April 22, 2025 End: April 22, 2025 Team Status: Inactive Member Role Status Dates Eusebio Olivares DO Primary Care Provider Active Start: May 06, 2025 End: May 06, 2025 Angie Benavides DO Emergency Provider Active S tart: May 06, 2025 End: May 06, 2025 Dwayne Little , Admit Provider Active Start: May 06, 2025 End: May 06, 2025 Nadeen Grant MD Attending Provider Active S tart: May 06, 2025 End: May 06, 2025 Team Status: Active Member Role Status Dates Eusebio Olivares DO Primary Care Provider Active Start: May 06, 2025 Angie Benavides DO Emergency Provider Active S tart: May 06, 2025 Dwayne Little DO Admit Provider Active Start: May 06, 2025 Nadeen Grant MD Attending Provider Active S tart: May 06, 2025 Roentgenologist Relationship Specialty Start Date End Date Eusebio Olivares DO [address] [place] [address] PCP - General Internal Medicine 04/15/25 Brianna Gomez DO [address] [facility] 2, [facility] [address] [place] [address] Consulting Physician Cardiology 12/03/23 Team Status: Active Member Role Status Dates Eusebio Olivares DO Primary Care Provider Active Start: April 11, 2025 Bryce Coy MD Attending Provider Active Star t: April 11, 2025 Team Status: Active Member Role Status Dates Eusebio Olivares DO Primary Care Provider Active Start: April 11, 2025 Angel Mejía MD Attending Provider Active Start : April 11, 2025 Team Status: Inactive Member Role Status Dates Eusebio Olivares DO Primary Care Provider Active Start: May 29, 2025 End: May 30, 2025 Tenzin Ortiz Jr, MD Emergency Provider Active Start: May 29, 2025 End: May 30, 2025 Team Status: Active Member Role Status Dates Allyson Munoz MD Emergency Provider Active Start: May 31, 2025 Eusebio Olivares DO Primary Care Provider Active Start: May 31, 2025 Adrian Noland MD Admit Provider Active Star t: May 31, 2025 Adrian Noland MD Attending Provider Active Start: May 31, 2025 Team Status: Active Member Role Status Dates Eusebio Olivares DO Primary Care Provider Active Start: May 14, 2025 Nancy Haas MD Attending Provider Active Star t: May 14, 2025 Team Status: Inactive Member Role Status Dates Allyson Munoz MD Emergency Provider Active Start: May 31, 2025 End: June 01, 2025 Eusebio Olivares DO Primary Care Provider Active Start: May 31, 2025 End: June 01, 2025 Adrian Noland MD Admit Provider Active Star t: May 31, 2025 End: June 01, 2025 Chung Maria MD Attending Provider Active Star t: May 31, 2025 End: June 01, 2025 Roentgenologist Relationship Specialty Start Date End Date Eusebio Olivares DO [address] [place] [address] PCP - General Internal Medicine 04/15/25 Brianna Gomez DO [address] [facility] 2, [address] [place] [address] Consulting Physician Cardiology 12/03/23 Heather Berg RN Care Haulage Engine Operator 06/02/25 06/02/25 Roentgenologist Relationship Specialty Start Date End Date Eusebio Olivares DO [address] [place] [address] PCP - General Internal Medicine 04/15/25 Brianna Gomez DO [address] [facility] [address], [address] [place] [address] Consulting Physician Cardiology 12/03/23 Heather Berg RN Care Haulage Engine Operator 06/02/25 06/02/25 Goals (unrecognized section and content) Type Treatment Intervention Code Status: Full Code Goals may be documented in an alternate section Source Comments (unrecognize d section and content) In the event this informatio n is protected by the [facility] Confidentiality of Alcohol and Drug Abuse Patient Records regulations: The Federal rules restrict any use of the information to criminally investigate or prosecute any alcohol or drug abuse patient.[facility] the event this information is protected by the Federal Confidentiality of Alcohol and Drug Abuse Patient Records regulations: The Federal rules restrict any use of the information to criminally investigate or prosecute any alcohol or drug abuse patient.[facility] (unrecognized sect ion and content) No Status Records FoundNo Status Records FoundNo Status Records FoundNo Status Records FoundNo Status Records FoundNo Status Records FoundNo Status Records FoundNo Status Records FoundNo Status Records FoundNo Status Records FoundNo Status Records FoundNo Status Records Found INFORMATION SOURCE (unrecogn ized section and content) DATE CREATED AUTHOR 08/09/2022 [facility] DATE CREATED AUTHOR AUTHOR'S ORGANIZ ATION 09/11/2022 [facility] DATE CREATED AUTHOR AUTHOR'S ORGANIZ ATION 02/27/2023 [facility] DATE CREATED AUTHOR AUTHOR'S ORGANIZ ATION 02/27/2023 [facility] DATE CREATED AUTHOR AUTHOR'S ORGANIZ ATION 12/03/2023 [facility] DATE CREATED AUTHOR AUTHOR'S ORGANIZ ATION 12/22/2023 [facility] DATE CREATED AUTHOR AUTHOR'S ORGANIZ ATION 12/11/2024 [facility] DATE CREATED AUTHOR AUTHOR'S ORGANIZ ATION 12/27/2024 [facility] DATE CREATED AUTHOR AUTHOR'S ORGANIZ ATION 04/19/2025 [facility] DATE CREATED AUTHOR AUTHOR'S ORGANIZ ATION 05/29/2025 [facility] DATE CREATED AUTHOR AUTHOR'S ORGANIZ ATION 06/06/2025 [facility] DATE CREATED AUTHOR AUTHOR'S ORGANIZ ATION 06/07/2025 [facility] FOR RECORDS PERTAINING TO PATIENTS WHO ARE [...] BE BASED ON THE PRIMARY CLINICAL RECORDS. [facility] [employer] [facility]. provides no warranty or guarantee of the accuracy or completeness of information in this document.
[2025-06-07 04:20] LABS: Hematocrit 41.0 % (42.0-54.0); Hemoglobin 12.9 g/dL (14.0-18.0); Immature Granulocytes Abs Auto 0.02 10^3/uL (0.00-0.03); Immature Granulocytes Pct Auto 0.4 % (0.0-0.5); Lymphocytes Absolute Auto 0.6 10^3/uL (1.2-3.8); Mean Corpuscular HGB Conc 31.5 g/dL (29.9-35.2); Mean Corpuscular Hemoglobin 28.7 pg (25.9-34.0); Mean Corpuscular Volume 91.3 fL (80.0-94.0); Platelet Count 119 10^3/uL (150-450); Red Blood Count 4.49 10^6/uL (4.70-6.10); White Blood Count 5.5 10^3/uL (4.0-11.0)
[2025-06-07 04:31] LABS: Anion Gap 16.0; Blood Urea Nitrogen 48.0 mg/dL (7.0-18.0); Calcium 8.7 mg/dL (8.5-10.1); Carbon Dioxide 26.8 mmol/L (21.0-32.0); Chloride 98 mmol/L (98-107); Estimated GFR (African America 9 (>=60 mL/min/1.73m^2); Estimated GFR (Non-African Ame 8 (>=60 mL/min/1.73m^2); Glucose 127 mg/dL (74-106); Potassium 3.8 mmol/L (3.5-5.1); Sodium 137 mmol/L (136-145)
[2025-06-07 05:31] LABS: Glucose Urine UA 500 mg/dL (NEGATIVE)
[2025-06-07 05:39] LABS: Cast Seen? NONE SEEN #/LPF (NONE SEEN); Crystals Seen? None Seen #/HPF (None Seen); Urine Culture Indicated NO
[2025-06-07 06:27] VITALS: BP 182/90; PULSE 62; O2SAT 99
== END 2025-06-07 06:31 | disposition home or self-care (01) ==
PROVIDERS: Emergency Provider Internal Medicine; PCP Internal Medicine
DX: E11.649 Type 2 diabetes mellitus with hypoglycemia without coma (principal); Z99.2 Dependence on renal dialysis; F17.200 Nicotine dependence, unspecified, uncomplicated; Z79.4 Long term (current) use of insulin; N19 Unspecified kidney failure
CPT/HCPCS: 36415; 80048; 81001; 82948; 85025; 99283

== ENCOUNTER 2025-07-12 10:35 | Outpatient (REF) | payer MEDICARE, MEDICAID, SELFPAY ==
--- OUTSIDE RECORDS SUMMARY | 2025-06-29 08:30 | XMS_ITS | Encounter Summary ---
Author Organization [facility] Address [address] [place] [address] Phone Care Team Providers Care Charging Operator Name Role Phone Elder Gomez DO Unavailable [phone] Rolando Kothari DO Primary Care Provider [phone] Reason for Visit * ReasonCommentsFollow-upBP check med changes [facility] discharge 06/01 Encounter Details DateTypeDepartmentCare Team (Latest Contact Info)Cjycinbonuk09/11/2025 8:30 AM ESTOffice Visit [facility] [address] [facility] [address] [place] [address] Chikis Anderson, LEAD POURER-CHIEF OF FIELD OPERATIONS [address] [facility] [address] [place] [address] Essential (primary) hypertension (Primary Dx); BMI 24.0-24.9, adult; Former smoker; Vapes non-nicotine containing substance Discharge Disposition: Home Social History Tobacco UseTypesPacks/DayYears UsedDateSmoking Tobacco: FormerCigarettes0.324 Started: 2000Smokeless Tobacco: Current Tobacco Cessation:Ready to Q uit: Not Asked; Counseling Given: Not Answered Comments:0 nicotine vaping Alcohol UseStandard Drinks/WeekCommentsNever0 (1 standard drink = 0.6 oz pure alcohol)PHQ-2AnswerDate RecordedPatient Health Questionnaire-2 [id number] Sex and Gender InformationValueDate RecordedSex Assigned at BirthNot on file Legal VxsVhui86/26/2022 5:22 AM ESTGender IdentityNot on fileSexual Orientation Not on filedocumented as of this encounter Last Filed Vital Signs Vital SignReadingTime TakenCommentsBlood Zgeljsvk866/8206/29/2025 8:14 AM EST Buujl7201/06/2025 8:14 AM ESTTemperature--Respiratory Rate--Oxygen Saturation-- Inhaled Oxygen Concentration--Qoelty28.4 kg (186 lb)06/29/2025 8:14 AM ESTHeight 185.4 cm (6' 1 )06/29/2025 8:14 AM ESTBody Mass Index24.5406/29/2025 8:14 AM EST documented in this encounter Functional Status * BPAnswerDate of HhmgfvaomeJbxxom787/8206/29/2025 8:14 AM Hetal Guadarrama CMA * PulseAnswerDate of AcgodyjllyUkvhsh5363 8:14 AM Hetal Guadarrama CMA documented as of this encounter Patient Instructions * Patient Instructions* DAVID Phillips - 06/29/2025 8:30 AM EST Please bring all medicines, vitamins, and herbal supplements with you when you come to the office. Prescriptions will not be filled unless you are compliant with your follow up appointments or have a follow up appointment scheduled as per instruction of your physician. Refills should be requested at the time of your visit. PLAN: Through informed decision making process incorporating patients unique circumstances, the followingtreatment plan will be initiated: 1. Prescription drug management of cardiovascular medication for efficacy, adherence to treatment, side effect assessment and polypharmacy. Current treatment clinically warranted and to continue withfollowing modifications: 2. Return for follow-up; in the interim, contact the office if new symptoms arise.h Dr. Gomez as scheduled documented in this encounter Progress Notes * DAVID Phillips - 06/29/2025 8:30 AM EST Subjective: Yoel Werner is a 40 y.o. male with hypertension. He presents to the office today ambulatory with steady gait. May 2025 seen in cardiology consultation at [facility] by Dr. Gomez due to hypertensive urgency. His hydralazine was increased to 100 mg 3 times daily and Entresto 24/26 mg twice daily was added to medical regimen. Reports that Dr. Cook is aware of addition of Entresto. He attends hemodialysis Saturday -he has difficulties on dialysis day with hypotension and interruption in treatment and for that reason he has only been taking 50 mg of hydralazine ondialysis day. Although today is Saturday, he has extra dialysis this week due to his dental procedure scheduled on Saturday in preparation for mitral valve procedure. Due to that reason, he took half of his blood pressure pills this morning to be able to make it through hemodialysis. Blood pressure slightly elevated in the office but he will be leaving for hemodialysis this afternoon. Blood pressureis monitored closely at hemodialysis will not make any changes at this time. He has routine labs with nephrology, denies any prior history of hyperkalemia. Current Outpatient Medications Medication Instructions amLODIPine (NORVASC) 10 mg, Daily aspirin 81 mg, oral, Daily atorvastatin (LIPITOR) 80 mg, oral, Nightly calcium acetate (PHOSLO) 1,334 mg, 3 times daily carvedilol (COREG) 25 mg, 2 times daily clopidogrel (PLAVIX) 75 mg, oral, Daily epoetin alexus (EPOGEN INJ) 8,000 Units, 3 times weekly famotidine (PEPCID) 20 mg, Nightly furosemide (LASIX) 80 mg, Daily gabapentin (NEURONTIN) 100 mg, Nightly heparin, [...] (Zoloft) 100 mg tablet 1 tablet, Daily (30) Hypertension ROS: taking medications as instructed, no medication side effects noted, no TIA's, no chest pain on exertion, no dyspnea on exertion, and no swelling of ankles. New concerns: low BP during HD. Objective: BP 162/82 (BP Location: Right arm, Patient Position: Sitting) Pulse 60 Ht 1.854 m (6' 1 ) Wt 84.4 kg (186 lb) BMI 24.54 kg/m?? Appearance alert, well appearing, and in no distress. General exam BP noted to be mildly elevated today in office, S1, S2 normal, no gallop, no murmur, chest clear, no JVD, no HSM, no edema. Lab review: no lab studies available for review at time of visit. Assessment: Hypertension improved, reasonably well controlled, and no significant medication side effects noted. Former smoker Abstain since August 2024. Vapes non-nicotine containing substance Has been able to get completely off nicotine containing vapes and is trying to wean himself off vaping completely Plan: Current treatment plan is effective, no change in therapy. Reviewed diet, exercise and weight control. Recommended sodium restriction. Chikis Anderson MSN, LEAD POURER-CHIEF OF FIELD OPERATIONS, PMHNP-[facility] [place], [place] Please excuse any errors in grammar or translation related to this dictation. Voice recognition software was utilized to prepare this document. documented in this encounter Miscellaneous Notes * Assessment & Plan Note - DAVID Phillips - 06/29/2025 8:37 AM EST Associated Problem(s): Vapes non-nicotine containing substance Has been able to get completely off nicotine containing vapes and is trying to wean himself off vaping completely * Assessment & Plan Note - DAVID Phillips - 06/29/2025 8:36 AM EST Associated Problem(s): Former smoker Abstain since August 2024. documented in this encounter Plan of Treatment DateTypeDepartmentCare Team (Latest Contact Info)Aqlkguurvzj44/14/2026 10:20 AM EDTOffice Visit [facility] [address] [phone] Elder Gomez DO [address] [facility] [address], [address] [address] documented as of this encounter Visit Diagnoses Diagnosis Essential (primary) hypertension- Primary Unspecified essential hypertension BMI 24.0-24.9, adult Former smoker Personal history of tobacco use, presenting hazards to health Vapes non-nicotine containing substance documented in this encounter Additional Health Concerns AssessmentNoted TimePHQ-9 Depression Total Score: 111 9:18 AM EDTA fall risk assessment has been completed for the wfnjcgg0706/02/2025 9:16 AM EDT documented as of this encounter Care Teams Team MemberRelationshipSpecialtyStart DateEnd Date Rolando Kothari DO [address] [place] [address] PCP - GeneralInternal Medicine04/15/25 Elder Gomez DO [address] [place] [address] [address], [address] [address] Consulting PhysicianCardiology12/03/23documented as of this encounter
--- OUTSIDE RECORDS SUMMARY | 2025-07-12 10:41 | XMS_ITS | Clinical Summary ---
Author Organization [facility] Address [address] [place] [address] Phone Care Team Providers Care Child Care Assistant Name Role Phone Brianna Marinelli DO Unavailable [phone] Rolando Kothari DO Primary Care Provider [phone] Allergies Active AllergyReactionsCriticalityNoted DateCommentsTicagrelorShortness of jvebxjKdif65/24/2024 Medications MedicationSigDispense QuantityRefillsLast FilledStart DateEnd DateStatus carvedilol (Coreg) 25 mg tablet Take 1 tablet (25 mg) by mouth 2 times a day.07/18/2023ctive famotidine (Pepcid) 20 mg tablet Take 1 tablet (20 mg) by mouth once daily at bedtime.Active HumaLOG KwikPen Insulin 100 unit/mL injection Inject under the skin.Active isosorbide mononitrate ER (Imdur) 60 mg 24 hr tablet Take 1 tablet (60 mg) by mouth 2 times a day.08/09/2023ctive loratadine (Claritin) 10 mg tablet Take 1 tablet (10 mg) by mouth if needed.06/21/2023ctive nitroglycerin (Nitrostat) 0.[address] 1 tablet (0.4 mg) under the tongue every 5 minutes if needed.Active omeprazole (PriLOSEC) [address] capsule Take 1 capsule (20 mg) by mouth once daily.Active epoetin alexus (EPOGEN INJ) Inject 8,000 Units under the skin 3 times a week.Active heparin sodium,porcine/PF (heparin, porcine, PF,) 1,000 unit/mL solution Infuse 1 mL (1,000 Units) into a venous catheter 3 times a week.Active calcium acetate (Phoslo) 667 mg capsule Take 2 capsules (1,334 mg) by mouth 3 times a day.Active amLODIPine (Norvasc) 10 mg tablet Take 1 tablet (10 mg) by mouth once daily.04/29/2024ctive sertraline (Zoloft) 100 mg tablet Take 1 tablet (100 mg) by mouth early in the morning..05/18/2024ctive hydrOXYzine HCL (Atarax) 25 mg tablet Take 1 tablet (25 mg) by mouth once daily at bedtime.Active aspirin 81 mg chewable tablet Indications:ASHD (arteriosclerotic heart disease)Chew 1 tablet (81 mg) once daily. 90 tablet 5009/29/2025ctive atorvastatin (Lipitor) 80 mg tablet Indications:Hyperlipidemia, unspecified hyperlipidemia typeTAKE 1 TABLET BY MOUTH EVERY NIGHT 90 tablet 5Active clopidogrel (Plavix) 75 mg tablet Indications:History of ND (myocardial infarction)TAKE 1 TABLET BY MOUTH ONCE DAILY. 90 tablet 5Active hydrALAZINE (Apresoline) 100 mg tablet Indications:Essential hypertension, benignTake 1 tablet (100 mg) by mouth 3 times a day. 270 tablet 6Active sacubitriL-valsartan (Entresto) 24-26 mg tablet 1 tablet.5Active gabapentin (Neurontin) 100 mg capsule Take 1 capsule (100 mg) by mouth once daily at bedtime.5Active furosemide (Lasix) 80 mg tablet Take 1 tablet (80 mg) by mouth once daily.Active escitalopram (Lexapro) 10 mg tablet Take 1 tablet (10 mg) by mouth once daily.06/29/2025Discontinued(Therapy completed) furosemide (Lasix) 40 mg tablet Indications:Congestive heart failure, unspecified HF chronicity, unspecified heart failure type (Multi)TAKE 1 TABLET BY MOUTH EVERY DAY 90 tablet Discontinued(Dose adjustment) Active Problems ProblemNoted DateDiagnosed DateFormer xnuyuo0506/29/2025 Assessment & Plan (06/29/2025 8:36 AM EST): Abstain since August 2024. Vapes non-nicotine containing vtdfdlygw87/11/2025 Assessment & Plan (06/29/2025 8:37 AM EST): Has been able to get completely off nicotine containing vapes and is trying to wean himself off vaping completely ACEI/ARB kcokfotanmlendy05/09/2025Mitral wszdlepiniepy83/09/2025Vapes nicotine containing uytkhaspp70/08/2025MI 24.0-24.9, adult12/03/20230432Kbohil54/02/2024SHD (arteriosclerotic heart disease)08/20/2023HF (congestive heart failure) 08/20/2023iabetes djjxunvn22/02/2024Essential (primary) /02/2024 History of ND (myocardial infarction)08/20/20233569Jinxtpfaugwchs31/02/2024ESRD (end stage renal disease) on qrkhadxo27/02/2024Status post insertion of drug eluting coronary artery stent08/20/2023 Resolved Problems ProblemNoted DateDiagnosed DateResolved DateAortic valve tsippucd16/08/2025 05/27/2025 Overview (11/24/2024): AOV insufficiency Current every day prtivp18NSTEMI, initial episode of care enal jytmsxrioqjvm71 Encounters DateTypeDepartmentCare FdrtWiztuagzmkw40/20/2025Telephone [facility] [address] [facility] [address] [place] [address] Edel Scanlon, RN return call07/06/2025Telephone [facility] [address] [facility] [address] [place] [address] Edel Scanlon, TERE need dental clearance, schedule M-TEER108/29/2024 8:30 AM ESTOffice Visit [facility] [address] [facility] [address] [place] [address] Cihkis Anderson, [employer] SERVICES MANAGER-GRANTS ASSISTANT Essential (primary) hypertension (Primary Dx); BMI 24.0-24.9, adult; Former smoker; Vapes non-nicotine containing substance Discharge Disposition: Home06/29/20254680Jdxbdo27/05/2025Scanned Document [facility] [address] [place] [address] Scanning, Generic Provider 06/16/2025Telephone [facility] [place] [address] [place] [address] [place] [address] Edel Scanlon RN update Structrul Heart rsibdpt2006/14/2025ardiology Conference [facility] [address] [place] [address] [place] [phone] Andra Quiles RN 06/04/2025Results Follow-Up [facility] [address] [place] [address] Chaitanya Saavedra, [employer] R[employer] SERVICES MANAGER-GRANTS ASSISTANT CT TAVR full contrast chest abdomen vhnbzk8706/02/2025 11:30 AM EDT - 06/02/2025 11:59 PM EDTHospital Encounter [facility] [address] [place] [address] Nonrheumatic mitral valve regurgitation Discharge Disposition: Home06/02/2025 11:00 AM EDTOffice Visit [facility] [address] [place] [address] [place] [address] Phoebe Rowland MD Severe mitral regurgitation (Primary Dx) Discharge Disposition: Home06/02/2025 10:30 AM EDTOffice Visit [facility] [place] [address] [place] [address] [place] [phone] Mike Mcdonnell MD Nonrheumatic mitral valve regurgitation (Primary Dx) Discharge Disposition: Home06/02/2025Orders Only [facility] [place] [address] [place] [address] [place] [address] Edel Scanlon, TERE Nonrheumatic mitral valve regurgitation (Primary Dx)06/02/20252075Ejyezv12/14/2025 Scanned Document [facility] [address] [place] [address] Scanning, Generic Provider 05/31/2025Scanned Document [facility] [address] [place] [address] Scanning, Generic Provider 05/27/2025 10:40 AM EDTOffice Visit [address] [place] [address] [place] [address] Brianna Marinelli DO ASHD (arteriosclerotic heart disease); History of ND (myocardial infarction); Status post insertion of drug eluting coronary artery stent; Nonrheumatic mitral valve regurgitation; Essential (primary) hypertension; Mixed hyperlipidemia; Type 2 diabetes mellitus with chronic kidney disease on chronic dialysis, with long-term current use of insulin (Multi); ESRD (end stage renal disease) on dialysis (Multi); BMI 23.0-23.9, adult; ACEI/ARB contraindicated; Current every day smoker; Vapes nicotine containing substance; Essential hypertension, benign Discharge Disposition: Home05/27/2025Telephone [facility] [address] [facility] [address] [place] [address] Edel Scanoln RN Structural Heart ejuymloi19/09/6059Hrscbg63/17/2025Scanned Document [facility] [address] [place] [address] Scanning, Generic Provider 04/30/2025Results Follow-Up [address] [place] [address] [place] [address] Brianna Marinelli DO Transthoracic Echo Voqledl6404/15/2025 7:45 AM EDT - 04/15/2025 11:59 PM EDT Hospital Encounter [address] [facility] [address] [place] [address] Mitral valve insufficiency, unspecified etiology Discharge Disposition: Home04/15/20254921Fksuzp81/24/2025Refill [address] [place] [phone] Brianna Marinelli DO History of ND (myocardial infarction)from Last 3 Months Immunizations ImmunizationAdministration DatesNext DueMMR vaccine, subcutaneous (MMR II) 10/05/1997 Family History Medical HistoryRelationNameCommentsHypertensionFatherDiabetesMotherHypotension MotherKidney diseaseMotherLiver diseaseMotherPancreatic cancerMotherheart problemMotherRelationNameStatusCommentsFatherMother Social History Tobacco UseTypesPacks/DayYears UsedDateSmoking Tobacco: FormerCigarettes0.324 Started: 2000Smokeless Tobacco: Current Tobacco Cessation:Ready to Q uit: Not Asked; Counseling Given: Not Answered Comments:0 nicotine vaping Alcohol UseStandard Drinks/WeekCommentsNever0 (1 standard drink = 0.6 oz pure alcohol)PHQ-2AnswerDate RecordedPatient Health Questionnaire-2 Htfwu230 Sex and Gender InformationValueDate RecordedSex Assigned at BirthNot on file Legal OvnRtdj19/26/2022 5:22 AM ESTGender IdentityNot on fileSexual Orientation Not on file Last Filed Vital Signs Vital SignReadingTime TakenCommentsBlood Tyrfnuli378/8206/29/2025 8:14 AM EST Mqgav702006/29/2025 8:14 AM ESTTemperature--Respiratory Rate--Oxygen Ggekvmchsf50% 06/02/2025 9:11 AM EDTInhaled Oxygen Concentration--Cvfqnj33.4 kg (186 lb) 06/29/2025 8:14 AM QRCKrlygn011.4 cm (6' 1 )06/29/2025 8:14 AM ESTBody Mass Index24.5406/29/2025 8:14 AM EST Plan of Treatment DateTypeDepartmentCare Team (Latest Contact Info)Jbfxbsjgmll45/14/2026 10:20 AM EDTOffice Visit [address] [address] Brianna Marinelli DO [address] [place] [address] [address] [place] [address] [place] [address] Health MaintenanceDue DateLast DoneCommentsDiabetes: Celiac Disease Screening 1985Diabetes: Hemoglobin A1C1985HIV Lldixgiiy1985Lipid Panel 1985Medicare Annual Wellness Visit (AWV)1985Vitamin B-120 1985 Hepatitis C Oazssysvi55/16/2003Hepatitis B Vaccines (1 of 3 - 19+ 3-dose series) 2004Pneumococcal Vaccine: Pediatrics and At-Risk Adult Patients (1 of 2 - PCV)2004Zoster Vaccines (1 of 2)2004DTaP/Tdap/Td Vaccines (1 - Tdap) 2007HPV Vaccines (1 - 3-dose standard series)2012Diabetes: Retinopathy Ymfiyutnp44//127389/TSH Level03/14/476051/4Creatinine Level03/16/625226/, 03/15/2024, 03/14/2024, Additional history exists Potassium Level03/16/304137/, 03/15/2024, 03/14/2024, Additional history existsInfluenza Vaccine (#1)5COVID-19 Vaccine ( - 2024- season) 04/19/20256987Cxtotszknrimjm69/28/576563/, 03/15/2024, 03/15/2024, Additional history existsMMR UavkvqveHvqyfwwdy19/17/1998HIB VaccinesAged OutNo longer eligible based on patient's age to complete this topicHepatitis A VaccinesAged OutNo longer eligible based on patient's age to complete this topicIPV Vaccines Aged OutNo longer eligible based on patient's age to complete this topic Meningococcal VaccineAged OutNo longer eligible based on patient's age to complete this topicRotavirus VaccinesAged OutNo longer eligible based on patient's age to complete this topic Procedures Procedure NamePriorityDate/TimeAssociated DiagnosisCommentsCT TAVR FULL CONTRAST CHEST ABDOMEN PYCQAGONFD83/15/2025 11:45 AM EDT Nonrheumatic mitral valve regurgitation OUTSIDE IMAGING SCAN05/31/2025 TRANSTHORACIC ECHO (TTE) SPZEHYAZbzsuym60/28/2025 8:29 AM EDT Mitral valve insufficiency, unspecified etiology from Last 3 Months Results * CT TAVR full contrast chest abdomen pelvis (06/02/2025 11:45 AM EDT)Anatomical RegionLateralityModalityThoracic, BodyComputed TomographySpecimen (Source) Anatomical Location / LateralityCollection Method / VolumeCollection Time Received Time06/02/2025 2:24 PM EDT1 2:24 PM EDT Impressions 06/02/2025 2:23 PM EDT 1. Extensive atherosclerotic changes involving the thoracoabdominal aorta and its branches. Combination of calcified and noncalcified plaque results in lugxowau-yd-dsudgn stenosis of the left common iliac artery. Nwvd-ml-jbzwozzx stenosis of the right common iliac artery. The external iliac and femoral vasculature is widely patent. 2. Mild cardiomegaly with left atrial enlargement, as well as pulmonary edema in keeping with known mitral valve regurgitation. 3. Dilated main pulmonary artery measuring 3.4 cm, suggestive of secondary pulmonary arterial hypertension. 4. Tmymaadp-zv-ibdjgu coronary artery calcifications, with postprocedural changes of coronary stenting. Correlate with diagnostic coronary angiography. 5. Circumferential wall thickening of the urinary bladder with mild prostatomegaly most likely representing chronic outlet obstruction. If there is clinical concern, urinalysis to exclude cystitis may be obtained. ?? I personally reviewed the image(s)/study and resident interpretation. I agree with the findings as stated by resident Andrés Rosen. Data analyzed and images interpreted at [facility], [place], [place]. ?? MACRO: None ?? Signed by: Eugene Santoyo 06/02/2025 2:23 PM Dictation workstation: ?? [id number] Narrative 06/02/2025 2:23 PM EDT Interpreted By: Eugene Santoyo and Beyersdorf Conner STUDY: CT TAVR FULL CONTRAST CHEST ABDOMEN PELVIS; ??06/02/2025 11:45 am ?? INDICATION: Signs/Symptoms:mitral regurgitation. ?? ,I34.0 Nonrheumatic mitral (valve) insufficiency ?? COMPARISON: None. ?? ACCESSION NUMBER(S): [id number] ?? ORDERING CLINICIAN: CHAITANYA SAAVEDRA ?? TECHNIQUE: Multi-detector CT technology was employed. Initial limited axial imaging of chest with prospective gating is performed. Following this,helical multi-detector acquisition of the chest with retrospective gating and minimal slice thickness was performed following the intravenous administration of 80 ML Omnipaque 350. Subsequently, contrast enhanced non-gated CT examination of the abdomen and pelvis was obtained. Cine images of the cardiac cycle were acquired. ?? For optimization of anatomic evaluation, multiplanar reconstruction, maximum intensity projections, and advanced 3-D off-line postprocessing were performed on a dedicated stand-alone workstation under the direct supervision of the interpreting physician. ?? FINDINGS: Potential study limitations: ??None. ?? THORACIC AORTA AND HEART: The thoracic aorta [...] to atherosclerotic disease, without hemodynamically significant stenosis. ?? Normal atrioventricular and ventriculoarterial concordance. Cardiomegaly with left atrial enlargement. Mild aortic valvular calcifications. Normal coronary artery origins.Gcztriab-ar-tqmssg coronary artery calcifications. Multiple coronary stents are identified. There is no pericardial effusion seen. ?? PULMONARY ARTERIES Main pulmonary artery is moderately dilatedmeasuring 3.4 cm. Although the study is not tailored for evaluation of pulmonary arteries, there are no discrete filling defects within the pulmonary arteries or its opacified branches to suggest pulmonary embolism. ?? SYSTEMIC AND PULMONARY VEINS Normal systemic venous and pulmonary venous return. The SVC and IVC are of normal caliber. Normal pulmonary venous anatomy. ?? CHEST: The visualized thyroid gland is within normal limits. No evidence of thoracic lymphadenopathy by CT criteria. There is a smallsized hiatal hernia. Otherwise, the esophagus is within normal limits. ?? The trachea and central airways are patent. [...] pulmonary edema. No suspicious pulmonary nodular mass ?? ABDOMINAL AORTA: The abdominal aorta and its [...] the left common iliac artery results in pscoqagz-vw-ptpdmo stenosis. Plhs-ov-tdoobjgv stenosis of the right common iliac artery. The external iliac arteries are widely patent. Mild atherosclerotic disease of the bilateral femoral vasculature. There is uhuo-kn-dtmuxkec right common femoral artery narrowing.. ?? ABDOMEN AND PELVIS: ?? HEPATOBILIARY SYSTEM: The liver is normal in size. There is no evidence of focal liver lesion ?? GALLBLADDER: The gallbladder is nondistended without evidence of radiopaque stones. ??The intrahepatic and extrahepatic bile ducts are not dilated. ?? PANCREAS: The pancreas is within normal limits.No suspicious focal lesions identified. ?? SPLEEN: The spleen is normal in size.No suspicious focal lesions are seen. ?? ADRENAL GLANDS: The bilateral adrenal glands are unremarkable in appearance. ?? KIDNEYS AND URETERS: The bilateral kidneys are normal in size and enhance symmetrically. Small bilateral hypodense lesions too small to fully characterize are favored to represent simple cysts. There is no evidence of hydroureteronephrosis or nephroureterolithiasis. ?? GI TRACT: The stomach is unremarkable. ??The small bowel is normal in caliber without evidence of focal wall thickening or obstruction. ??The appendix is visualized and appears normal. ??There is no evidence of focal wall thickening or dilatation of the large bowel. ?? PERITONEUM/RETROPERITONEUM/LYMPH NODES: No abdominopelvic lymphadenopathy is present. ??There is no focal fluid collection, free intraperitoneal air, or ascites. ?? GENITOURINARY SYSTEM: There is mild circumferential wall thickening of the urinary bladder. Mild prostatomegaly measuring 4.8 cm. There are no pelvic masses. ?? BODY WALL AND OSSEOUS STRUCTURES: Soft tissues of body wall are within normal limits. No acute osseous pathology.There are no suspicious osseous lesions. ?? Authorizing ProviderResult TypeResult StatusBrekaye Saavedra CARGO AND RAMP SERVICES MANAGER-CNPIMG CT PROCEDURESFinal Result * OUTSIDE IMAGING SCAN (05/31/2025)Anatomical RegionLateralityModalityOther Narrative 05/31/2025 Ordered by an unspecified provider. Authorizing ProviderResult TypeResult StatusGeneric Provider ScanningOUTSIDE SCANFinal Result * TRANSTHORACIC ECHO (TTE) LIMITED (04/15/2025 8:29 AM EDT)ComponentValueRef RangeTest MethodAnalysis TimePerformed AtPathologist SignatureLV Biplane EF45% SYNGOLVOT diam2.06cmSYNGOLA vol index A/L56.1ml/o0BEZQGUQ EF58%SYNGOLVIDd5.02 cmSYNGOLV A4C EF32.0SYNGOSpecimen (Source)Anatomical Location / Laterality Collection Method / VolumeCollection TimeReceived Time04/15/2025 7:50 AM EDT Impressions SYNGO - 04/15/2025 4:35 PM EDT CONCLUSIONS: 1. The left ventricular systolic function [...] the mitral regurgitation appears to have worsened. Narrative SYNGO - 04/15/2025 4:35 PM EDT ?[address], [address] [place] [address] ? TRANSTHORACIC ECHOCARDIOGRAM REPORT Patient Name: ? YOEL TAMAYO ?Reading Physician: ?[id number] Iraida ?Carson MOLINA Study Date: ? 04/15/2025 ? Ordering Provider: ?[id number] BRIANNA S ?ISIS MRN/PID: ?[id number] ?Fellow: Accession#: ? [id number] ?Nurse: Date of /Age: ??1985 / 40 ?Academic Services Coordinator: ?Doretha Martinez ?years ? RDCS, RVT Gender Assigned at ??M ? Additional Staff: : Height: ? 182.88 cm ? Admit Date: Weight: ? 77.11 kg ?Admission Status: ? Outpatient BSA / BMI: ?1.99 m2 / 23.06 ? Department Location: ??[facility] ?kg/m2 ? [place] Blood Pressure: 174 /80 mmHg Study Type: ?TRANSTHORACIC ECHO (TTE) LIMITED Diagnosis/ICD: Nonrheumatic mitral (valve) insufficiency-I34.0 Indication: ?CAD, Diabetes, Dyspnea on Exertion, HTN, Hyperlipidemia, ND and ? PTCA-11/07/2024 and 02/08/2025, POC-Kidney Transplant, CKD-on ? Dialysis CPT Codes: ? Echo Limited-47025 Study Detail: The following Echo studies were performed: 2D, M-Mode, Doppler and ?color flow. PHYSICIAN INTERPRETATION: Left Ventricle: The left ventricular systolic function is normal with a visually estimated ejectionfraction of 55-60%. There is concentric left ventricular [...] structurally normal. The pulmonic valve regurgitation was notassessed. Pericardium: No pericardial effusion noted. Aorta: The [...] have worsened. QUANTITATIVE DATA SUMMARY: 2D MEASUREMENTS: ? Normal Ranges: Ao Root d: ? 3.30 cm ? (2.0-3.7cm) LAs: ? 4.84 cm ? (2.7-4.0cm) RVIDd: ? 2.87 cm ? (0.9-3.6cm) IVSd: ?2.08 cm ? (0.6-1.1cm) LVPWd: ? 1.90 cm ? (0.6-1.1cm) LVIDd: ? 5.02 cm ? (3.9-5.9cm) LVIDs: ? 3.52 cm LV Mass Index: ?? 252.2 g/m2 LVEDV Index: ? 92.95 ml/m2 LV % FS ?30.0 % LEFT ATRIUM: ? Normal Ranges: LA Vol A4C: ? 108.3 ml ?? (22+/-6mL/m2) LA Vol A2C: ? 102.9 ml LA Vol BP: ?111.5 ml LA Vol Index A4C: 54.5ml/m2 LA Vol Index A2C: 51.8 ml/m2 LA Vol Index BP: ??56.1 ml/m2 LA Vol A4C: ? 102.7 ml LA Vol A2C: ? 96.4 ml LA Vol Index BSA: 50.1 ml/m2 LV SYSTOLIC FUNCTION: ? Normal Ranges: EF-A4C View: 32 % (>=55%) EF-A2C View: ?59 % EF-Biplane: ? 45 % EF-Visual: ?58 % LV EF Reported: 58 % MITRAL INSUFFICIENCY: ?Normal Ranges: PISA Radius: ?1.6 cm MR VTI: ? 223.14 cm MR Vmax: ?650.52 cm/s MR Alias Kofi: ? 103.2 cm/s MR Volume: ?593.29 ml MR Flow Rt: ? 1729.60 ml/s MR EROA: ?266 mm2 dP/dt: 1176 mmHg/s (>1200mmHg/sec) AORTIC VALVE: ?Normal Ranges: LVOT Diameter: 2.06 cm (1.8-2.4cm) [id number] Iraida Byrd MD Electronically signed on 04/15/2025 at 4:35:44 PM Final Procedure Note Iraida Byrd MD - 04/15/[address], Suite [facility], [place] [address] TRANSTHORACIC ECHOCARDIOGRAM REPORT Patient Name: YOEL Armando Physician: [id number] Keenan Study Date: 04/15/2025 Ordering Provider: [id number] MARINELLI MRN/PID: [id number] Fellow: Nurse: Date of /Age: 7 1985 / 40 Academic Services Coordinator: Jp hogan RDCS, RVT Gender Assigned at M Additional Staff: : Height: 182.88 cm Admit Date: Weight: 77.11 kg Admission Status: Outpatient BSA / BMI: 1.99 m2 / 23.06 Department Location: [facility] kg/m2 [place] Blood Pressure: 174 /80 mmHg Study Type: TRANSTHORACIC ECHO (TTE) LIMITED Diagnosis/ICD: Nonrheumatic mitral (valve) insufficiency-I34.0 Indication: CAD, Diabetes, Dyspnea on Exertion, HTN, Hyperlipidemia, MIand PTCA-11/07/2024 and 02/08/2025, POC-Kidney Transplant,CKD-on Dialysis CPT Codes: Echo Limited-03080 Study Detail: The following Echo studies were performed: 2D, M-Mode,Doppler and color flow. PHYSICIAN INTERPRETATION: Left Ventricle: The left ventricular systolic function is normal with avisually estimated ejection fraction of 55-60%. There is concentric leftventricular hypertrophy. There are no regional wall motion abnormalities.The left ventricular cavity size is normal. Spectral Doppler shows anormal pattern of left ventricular diastolic filling. There is severeconcentric left ventricular hypertrophy with abnormal myocardial textureconsider cardiac amyloidosis or infiltrative myocardial disorder. Left Atrium: The left atrial size is moderately dilated. Right Ventricle: The right ventricle is normal in size. There is normalright ventricular global systolic function. Right Atrium: The right atrial size is normal. Aortic Valve: The aortic valve is trileaflet. Aortic valve regurgitationwas not assessed. Mitral Valve: The mitral valve is normal in structure. There is moderateto severe mitral valve regurgitation. The mitral regurgitant orifice areais 266 mm2. The mitral regurgitant volume is 593.29 ml. Tricuspid Valve: The tricuspid valve is structurally normal. Tricuspid regurgitation was not assessed. No evidence of tricuspid regurgitation. Pulmonic Valve: The pulmonic valve is structurally normal. The pulmonicvalve regurgitation was not assessed. Pericardium: No pericardial effusion noted. Aorta: The aortic root is normal. CONCLUSIONS: 1. The left ventricular systolic function is normal with a visuallyestimated ejection fraction of 55-60%. 2. There is severe concentric left ventricular hypertrophy with abnormal myocardial texture consider cardiac amyloidosis or infiltrative myocardial disorder. 3. There is normal right ventricular global systolic function. 4. The left atrial size is moderately dilated. 5. Moderate to severe mitral valve regurgitation. 6. When compared to previous study LVEF appears better. While theseverity of the mitral regurgitation appears to have [...] Normal Ranges: LVOT Diameter: 2.06 cm (1.8-2.4cm) [id number] Iraida Byrd MD Electronically signed on 04/15/2025 at 4:35:44 PM Final IMPRESSION: CONCLUSIONS: 1. The left ventricular systolic function is normal with a visuallyestimated ejection fraction of 55-60%. 2. There is severe concentric left ventricular hypertrophy with abnormal myocardial texture consider cardiac amyloidosis or infiltrative myocardial disorder. 3. There is normal right ventricular global systolic function. 4. The left atrial size is moderately dilated. 5. Moderate to severe mitral valve regurgitation. 6. When compared to previous study LVEF appears better. While theseverity of the mitral regurgitation appears to have worsened. Authorizing ProviderResult TypeResult StatusWilldarrian MCADAMS ECHO PROCEDURESFinal ResultPerforming OrganizationAddressCity/State/ZIP CodePhone Number SYNGO from Last 3 Months Insurance Care Teams Team MemberRelationshipSpecialtyStart DateEnd Date Rolando Kothari DO [address] [place] [address] PCP - GeneralInternal Medicine04/15/25 Brianna Marinelli DO [address] [facility] 2, [facility] [address] [place] [address] Consulting PhysicianCardiology12/03/23
--- OUTSIDE RECORDS SUMMARY | 2025-07-12 10:41 | XMS_ITS | Encounter Summary ---
Author Organization [facility] Address [address] [place] [address] Phone Care Team Providers Care Budget Record Clerk Name Role Phone Elder Gomez DO Unavailable [phone] Rolando Kothari DO Primary Care Provider Encounter Details DateTypeDepartmentCare Team (Latest Contact Info)Vwjtwqikmuk84/11/2025Travel Social History Tobacco UseTypesPacks/DayYears UsedDateSmoking Tobacco: FormerCigarettes0.324 Started: 2000Smokeless Tobacco: Current Comments:0 nicotine vaping Alcohol UseStandard Drinks/WeekCommentsNever0 (1 standard drink = 0.6 oz pure alcohol)PHQ-2AnswerDate RecordedPatient Health Questionnaire-2 [id number] Sex and Gender InformationValueDate RecordedSex Assigned at BirthNot on file Legal UjcIgij24/26/2022 5:22 AM ESTGender IdentityNot on fileSexual Orientation Not on filedocumented as of this encounter Functional Status * BPAnswerDate of VbvrlliafkNmxiay970/8211 8:14 AM Hetal Guadarrama CMA * PulseAnswerDate of EghrdxgjbxVixyln8636 8:14 AM Hetal Guadarrama CMA documented as of this encounter Plan of Treatment DateTypeDepartmentCare Team (Latest Contact Info)Ihsqnmxrkdo65/14/2026 10:20 AM EDTOffice Visit [facility] [address] [place] [address] Elder Gomez DO [address], [address] [place] [address] documented as of this encounter Visit Diagnoses Not on filedocumented in this encounter Additional Health Concerns AssessmentNoted TimePHQ-9 Depression Total Score: 111 9:18 AM EDTA fall risk assessment has been completed for the mcxhaij2006/02/2025 9:16 AM EDT documented as of this encounter Care Teams Team MemberRelationshipSpecialtyStart DateEnd Date Rolando Kothari DO [address] [place] [address] PCP - GeneralInternal Medicine04/15/25 Elder Gomez DO [address] [facility] 2, [address] [place] [address] Consulting PhysicianCardiology12/03/23documented as of this encounter
--- OUTSIDE RECORDS SUMMARY | 2025-07-12 10:41 | XMS_ITS | Encounter Summary ---
Author Organization [facility] Address [address] [place] [address] Phone Care Team Providers Care Rubber Curer Name Role Phone Elder Gomez DO Unavailable [phone] Rolando Kothari DO Primary Care Provider [phone] Reason for Visit * ReasonOnset DateCommentsreturn call07/08/2025 Encounter Details DateTypeDepartmentCare Team (Latest Contact Info)Kftwbrtrzfi13/20/2025Telephone [facility] [address] [place] [address] [place] [address] Edel Scanlon RN return call Social History Tobacco UseTypesPacks/DayYears UsedDateSmoking Tobacco: FormerCigarettes0.324 Started: 2000Smokeless Tobacco: Current Comments:0 nicotine vaping Alcohol UseStandard Drinks/WeekCommentsNever0 (1 standard drink = 0.6 oz pure alcohol)PHQ-2AnswerDate RecordedPatient Health Questionnaire-2 Mrkiy601 Sex and Gender InformationValueDate RecordedSex Assigned at BirthNot on file Legal PmaLgrc09/26/2022 5:22 AM ESTGender IdentityNot on fileSexual Orientation Not on filedocumented as of this encounter Miscellaneous Notes * Telephone Encounter - Edel Scanlon RN - 07/08/2025 12:20 PM EST Received message reporting dental appointment on 07-20-25. Called back & notified will schedule procedure once dental clearance received. documented in this encounter Plan of Treatment DateTypeDepartmentCare Team (Latest Contact Info)Uhheyqmgbim64/14/2026 10:20 AM EDTOffice Visit [facility] [address] [phone] Elder Gomez DO 703 [facility] 2, [facility] [address] [place] [address] documented as of this encounter Visit Diagnoses Not on filedocumented in this encounter Additional Health Concerns AssessmentNoted TimePHQ-9 Depression Total Score: 111 9:18 AM EDTA fall risk assessment has been completed for the fvfcvqe5906/02/2025 9:16 AM EDT documented as of this encounter Care Teams Team MemberRelationshipSpecialtyStart DateEnd Date Rolando Kothari DO [address] [facility] [place] [address] PCP - GeneralInternal Medicine04/15/25 Elder Gomez DO [address] [place] [address] 2, [address] [address] Consulting PhysicianCardiology12/03/23documented as of this encounter
--- OUTSIDE RECORDS SUMMARY | 2025-07-12 10:41 | XMS_ITS | Encounter Summary ---
Author Organization [facility] Address [address] [place] [address] Phone Care Team Providers Care Animal Health Technician Name Role Phone Elder Gomez DO Unavailable [phone] Rolando Kothari DO Primary Care Provider [phone] Reason for Visit * ReasonOnset DateCommentsneed dental clearance, schedule M-TEER109/05/2024 Encounter Details DateTypeDepartmentCare Team (Latest Contact Info)Reyjdxdlybn05/18/2025Telephone [facility] Crist[address] [place] [address] Edel Scanlon RN need dental clearance, schedule M-LINETTE Social History Tobacco UseTypesPacks/DayYears UsedDateSmoking Tobacco: FormerCigarettes0.324 Started: 2000Smokeless Tobacco: Current Comments:0 nicotine vaping Alcohol UseStandard Drinks/WeekCommentsNever0 (1 standard drink = 0.6 oz pure alcohol)PHQ-2AnswerDate RecordedPatient Health Questionnaire-2 [id number] Sex and Gender InformationValueDate RecordedSex Assigned at BirthNot on file Legal GuiJrds68/26/2022 5:22 AM ESTGender IdentityNot on fileSexual Orientation Not on filedocumented as of this encounter Miscellaneous Notes * Telephone Encounter - Edel Scanlon RN - 07/06/2025 11:34 AM EST Called & he reported he completed dental extractions on 07-02-25. Left message with [facility] ph: [phone] with request to fax clearance to office. Patient will also follow up with dental office. documented in this encounter Plan of Treatment DateTypeDepartmentCare Team (Latest Contact Info)Vdxsllbxqso10/14/2026 10:20 AM EDTOffice Visit [facility] 703 [facility] [address] [place] [phone] Elder Gomez DO [address] [facility] 2, [address] [address] documented as of this encounter Visit Diagnoses Not on filedocumented in this encounter Additional Health Concerns AssessmentNoted TimePHQ-9 Depression Total Score: 111 9:18 AM EDTA fall risk assessment has been completed for the jejisbt2406/02/2025 9:16 AM EDT documented as of this encounter Care Teams Team MemberRelationshipSpecialtyStart DateEnd Date Rolando Kothari DO [address] [place] [address] PCP - GeneralInternal Medicine04/15/25 Elder Gomez DO [address] [facility] 2, [facility] [address] [place] [address] Consulting PhysicianCardiology12/03/23documented as of this encounter
--- OUTSIDE RECORDS SUMMARY | 2025-07-12 10:41 | XMS_ITS | Clinical Summary ---
Author Organization [facility] Address [address] [place] [address] Care Team Providers Care Laundry Technician Name Role Phone Rolando Kothari DO Primary Care Provider [phone] Allergies Active AllergyReactionsCriticalityNoted DateCommentsTicagrelorShortness of lqjntfMugl48/24/2024 Medications MedicationSigDispense QuantityRefillsLast FilledStart DateEnd DateStatus [facility] Aspirin Adult Low Dose 81 MG chewable tablet Chew 81 mg in the morning.04/22/2023ctive atorvastatin (Lipitor) 80 MG tablet Take 80 mg by mouth at bedtime.07/02/2023ctive ergocalciferol (Vitamin D2) 1.25 MG (93954 UT) capsule Take 1 capsule by mouth 1 (one) time per week.07/02/2023ctive escitalopram (Lexapro) 10 MG tablet Take 10 mg by mouth in the morning.06/20/2023ctive famotidine (Pepcid) 20 MG tablet Take 20 mg by mouth in the morning and 20 mg before bedtime.05/26/2023ctive furosemide (Lasix) 40 MG tablet Take 40 mg by mouth in the morning.06/20/2023ctive hyoscyamine (Anaspaz,Levsin) 0.125 MG tablet TAKE 1 TABLET BY MOUTH EVERY 6 HOURS NEEDED FOR ABDOMINAL PAIN07/09/2023 Active loratadine (Claritin) 10 MG tablet Take 10 mg by mouth every other day.06/21/2023ctive omeprazole (PriLOSEC) [address] capsule TAKE 1 CAP BY MOUTH EVERY DAY IN THE MORNING ON EMPTY STOMACH FOLLOWED BY BREAKFAST 30 MINS AFTER06/20/2023ctive ondansetron ODT (Zofran-ODT) 4 MG disintegrating tablet DISSOLVE 1 TABLET ON THE TONGUE EVERY 6 HOURS NEEDED FOR NAUSEA/ VOMITING 07/09/2023ctive GaviLyte-G 236 g solution TAKE 240 ML EVERY 10 MINUTES UNTIL FECAL EFFLUENT IS CLEAR07/09/2023ctive sertraline (Zoloft) 100 MG tablet 07/16/2023ctive calcium acetate (Phoslo) 667 MG capsule TAKE 2 CAPSULES BY MOUTH 3 TIMES DAILY WITH EACH MEAL03/27/2023 carvedilol (Coreg) 25 MG tablet Take 25 mg by mouth in the morning and 25 mg before bedtime.07/18/2023ctive clopidogrel (Plavix) 75 MG tablet Take 75 mg by mouth in the morning.07/24/2023ctive isosorbide mononitrate ER (Imdur) 60 MG 24 hr tablet Take 60 mg by mouth in the morning and 60 mg before bedtime.08/09/2023ctive ofloxacin (Ocuflox) 0.3 % ophthalmic solution INSTILL 1 DROP INTO RIGHT EYE 4 TIMES A DAY GKJQHAQA51/05/2023ctive amLODIPine (Norvasc) 2.5 MG tablet Take 2.5 mg by mouth in the morning.08/18/2023ctive hydrALAZINE (Apresoline) 50 MG tablet Take 50 mg by mouth in the morning and 50 mg at noon and 50 mg in the evening. 02/12/2023ctive insulin lispro (HumaLOG KWIKPEN) 100 UNIT/ML injection Inject under the skinActive nitroglycerin (Nitrostat) 0.[address] 0.4 mg under the tongueActive Coreroynjtc-Shadrizn-Iphbretde 1-0.5-0.075 % solution Indications:Cataract of left eye with neovascularizationAdminister 1 drop into affected eye(s) in the morning and 1 drop at noon and 1 drop in the evening and 1 drop before bedtime. 10 mL ctive Blood Glucose Monitoring Suppl (Accu-Chek Guide Al) w/Device kit USE OWUFYDDI00/09/2024ctive Continuous Blood Gluc Sensor (Dexcom G6 Sensor) misc CHANGE SENSOR EVERY 10 DAYS*E10.65*08/23/2023ctive Accu-Chek Softclix Lancets lancets USE TO TEST BLOOD SUGAR TWICE DAILY09/05/2023ctive Accu-Chek Guide test strip USE TO TEST FOUR TIMES A DAY QNVXOJKN67/09/2024ctive Continuous Blood Gluc Transmit (Dexcom G6 transmitter) misc CHANGE EVERY 90 DAYS DX E10.65009/07/2023ctive diclofenac sodium (Voltaren) 1 % gel Indications:Left shoulder pain, unspecified chronicity,Impingement of left shoulderApply 2 g topically in the morning and 2 g in the evening and 2 g before bedtime. 50 g ctive Active Problems No known active problems Immunizations ImmunizationAdministration DatesNext SqaJRG1010/05/1997 Family History Medical HistoryRelationNameCommentsHeart diseaseFatherHypertensionFatherDiabetes MotherHypertensionMotherLiver diseaseMotherPancreatic cancerMotherRelationName StatusCommentsFatherAliveMotherAlive Social History Tobacco UseTypesPacks/DayYears UsedDateSmoking Tobacco: Every OdvIyrswpcqzr614 Smokeless Tobacco: Never Tobacco Cessation:Ready to Q uit: Not Asked; Counseling Given: Yes Alcohol UseStandard Drinks/WeekCommentsDefer0 (1 standard drink = 0.6 oz pure alcohol)Sex and Gender InformationValueDate RecordedSex Assigned at BirthNot on fileLegal RcjVbfk7710/31/2022 11:45 PM EDTGender IdentityNot on fileSexual OrientationNot on file Last Filed Vital Signs Vital SignReadingTime TakenCommentsBlood Kqcpjhae024/8010 9:14 AM EDT Ddvow771106/04/2024 9:14 AM EDTTemperature--Respiratory Ypcp490312/10/2024 10:42 AM EDTOxygen Esrsctzehr25%06/11/2023 10:27 AM EDTInhaled Oxygen Concentration-- Xmbueg32.8 kg (156 lb)12/10/2024 10:42 AM BGMKawrrt306.9 cm (6')12/10/2024 10:42 AM EDTBody Mass Index21.16012/10/2024 10:42 AM EDT Plan of Treatment Not on file Insurance Care Teams Team MemberRelationshipSpecialtyStart DateEnd Date Rolando Kothari DO [address] [place] [address] PCP - GeneralInternal Medicine12/10/24
[2025-07-12 10:47] LABS: Hemoglobin 8.3 g/dL (14.0-18.0)
--- OUTSIDE RECORDS SUMMARY | 2025-07-12 10:56 | XMS_ITS | CCD ---
Author Organization [facility] Care Team Providers Care Toe Stripper Name Role Phone Eusebio Olivares Unavailable Unavailable Unavailable Angel Cook Unavailable DO Eusebio Olivares Primary Care Provider DO Denilson Gomez Attending Provider MD Angel Cook Attending Provider DO Eusebio Olivares Attending Provider Nancy Haas Unavailable DO Eusebio Olivares Primary Care Provider MD Angel Cook Referring Provider DO Hector Mann Emergency Provider MD Angel Cook Attending Provider MD Jorje Small Attending Provider MD Jorje Small Attending Provider [phone] MD Jorje Small Attending Provider DO Romain Roy Emergency Provider MD Govind Chang Emergency Provider DO Eusebio Olivares Primary Care Provider MD Angel Cook Referring Provider DO Yobani Hansen Emergency Provider [phone] DO Eusebio Olivares Primary Care Provider DO Hector Mann Emergency Provider [phone] MD Angel Cook Attending Provider MD Jorje Small Attending Provider DO Romain Roy [facility] Seymour Referring Provider MD Govind Salvador Emergency Provider DO Yobani Hansen Emergency Provider DO Eusebio Olivares Primary Care Provider DO Zeus Bradley Emergency Provider Eusebio Olivares DO Primary Care Provider BRITTNI PAGAN Attending Unavailable EUSEBIO OLIVARES Primary Care Unavailable ZITA GILMORE Attending Unavailable EUSEBIO OLIVARES Primary Care Unavailable DO Eusebio Olivares Primary Care Provider MD Jorje Small Attending Provider MD Angel Cook Attending Provider DO Denilson Gomez Attending Provider MD Cipriano Stiles Other Provider MD Tenzin Ortiz Jr Emergency Provider DO Isidoro Mesa Admit Provider DO Isidoro Mesa Attending Provider MD Nancy Haas Other Provider MD Law Cano Attending Provider [phone] DO Eusebio Olivares Primary Care Provider EUSEBIO OLIVARES Primary Care Physician [phone] DO Eusebio Olivares Primary Care Provider MD Angel Cook Referring Provider MD Jorje Small Attending Provider [phone] ADILSON VO Primary Care Unavailable MARSHALL, DR KAPLAN Attending Unavailable BALL, DR KAPLAN [...] Eusebio Olivares Primary Care Provider MD Angel Cook Attending Provider DO Mickey Gr Emergency Provider [phone] DO Reina Renae Admit Provider [phone] DO Reina Renae Attending Provider TERE Benítez Other Provider Unavailable DO Denilson Gomez Other Provider MD Nery Najera Other Provider MD Brianna Stewartrick Other Provider MD Iraida Byrd Other Provider MD Gerald Gross Other Provider JOSH Bob Other Provider MD Janine Gonzalez Other Provider MD David Glynnammed Nakirk Other Provider MD Avani Younger Other Provider [place] [facility] Christy Damico Other Provider MD Jackie Ross Other Provider MD Ross Catherine Attending Provider DO Eusebio Olivares Primary Care Provider Romain Mendoza Unavailable Unavailable Unavailable Eusebio Olivares Unavailable Zina Childs Unavailable DO Eusebio Olivares Primary Care Provider MD Angel Cook Attending Provider MD Jorje Small Attending Provider MD Angel Cook Referring Provider MD Romain Mendoza Attending Provider DO Mickey Gr Emergency Provider DO Reina Renae Admit Provider TERE Benítez Other Provider Unavailable DO Denilson Gomez Other Provider MD Nery Najera Other Provider MD Brianna Stewart Other Provider MD Iraida Byrd Other Provider MD Gerald Gross Other Provider JOSH Bob Other Provider MD Janine Gonzalez Other Provider MD [facility] Other Provider MD Avani Yougner Other Provider [place] [facility]- Christy Damico Other Provider MD Jackie Ross Other Provider MD Ross Catherine Attending Provider DO Denilson Gomez Attending Provider [phone] DAVION Childs Attending Provider DO Eusebio Olivares Primary Care Provider [phone] MD Anegl Cook Attending Provider [phone] MD Angel Cook Other Provider MD Romain Mendoza Attending Provider JOSH Grijalva Emergency Provider DO Eusebio Olivares Primary Care Provider MD Angel Cook Attending Provider MD Kim Renteria Admit Provider TERE Benítez Other Provider Unavailable Jason, DO W Rene Other Provider MD Nery Najera Other Provider MD Brianna Stewart Other Provider MD Iraida Byrd Other Provider MD Gerald Gross Other Provider JOSH Bob Other Provider MD Janine Gonzalez Other Provider MD Mathew Glynn Najemel Other Provider MD Avani Younger Other Provider [place] [facility] Christy Damico Other Provider MD Jackie Ross Other Provider MD Justino Boss Attending Provider Dr. Eusebio Olivares Primary Care Guzman Gomez, Dr. Brianna López Referring Unava ilmartina Olivares, Dr. Eusebio La Primary [facility] Guzman Gomez, Dr. Brianna López Attending Fernando ilmartina Gomez, Dr. Brianna López Attending Ericava ilmartina Olivares, Dr. Eusebio La Primary Care Guzman Gomez, Dr. Brianna López Referring Ericava ilmartina Olivares, Dr. Eusebio La Primary [facility] Guzman Gomez, Dr. Brianna López Attending Fernando ilmartina Gomez, Dr. Brianna López Referring Unava ilmartina Olivares, Dr. Eusebio La Primary Care Guzman Gomez, Dr. Brianna López Referring Unava ilable Jason, Dr. Brianna López Attending Ericava ilmartina Gomez, Dr. Brianna López Attending Fernando ilmartina Olivares, Dr. Eusebio La Primary Care Guzman Olivares, Dr. Eusebio La Primary [facility] Guzman Gomez, Dr. Brianna López Attending Ericava ilmartina Olivares, Dr. Eusebio La Primary [facility] Guzman Olivares, Dr. Eusebio La [facility] DO Eusebio Meadows Primary Care Provider [phone] MD Angel Cook Attending Provider DO Denilson Gomez Attending Provider MD Angel Cook Other Provider MD Jorje Small Attending Provider [phone] MarshallDO Kaplan Primary Care Provider MD Romain Mendoza Attending Provider MD Jorje Small Attending Provider DO Eusebio Olivares Primary Care Provider DO Eusebio Olivares Primary Care Provider MD Angel Cook Referring Provider [phone] MD Romain Mendoza Attending Provider DO Eusebio Olivares Primary Care Provider MD Romain Mendoza Attending Provider DO Eusebio Olivares Primary Care Provider MD Romain Mendoza Attending Provider [phone] MD Law Cano Admit Provider DO Jorge Mederos Attending Provider MD Brianna Stewart Other Provider MD Bryce Coy Other Provider Eusebio Olivares MD Primary Care Provider DO Eusebio Olivares Primary Care Provider MD Romain Mendoza Attending Provider MD Angel Cook Referring Provider JOSH Forte Attending Provider Ari [employer]- Kavya E Emergency Provider DO Eusebio Olivares Primary Care Provider MD Law Cano Admit Provider DO Jorge Mederos Attending Provider MD Brianna Stewart Other Provider [phone] MD Bryce Coy Other Provider MD Romain Mendoza Attending Provider MD Angel Cook Referring Provider [phone] Negritajameel GUT SNATCHER Kishore Camilo Attending Provider Ari, [facility]- Kavya E Emergency Provider [phone] DO Eusebio Olivares Primary Care Provider Mickey SHERIFF Attending Unavailable Eusebio Olivares DO Primary Care Provider Brianna Gomez DO Unavailable [phone] DO Eusebio Olivares Primary Care Provider MD Romain Mendoza Attending Provider MD Angel Cook Attending Provider DO Eusebio Olivares Primary Care Provider [phone] DO Mickey Gr M Emergency Provider [phone] DO Isidoro Mesa Admit Provider MD [facility] Attending Provider MD Bryce Coy Other Provider DAVION Su Other Provider Unavailable MD Angel Cook Other Provider MD Nancy Haas Other Provider MD Julio Allen Attending Provider DO Romain Roy Emergency Provider Ericavai MD Kim Owusu Admit Provider MD Kim Renteria Attending Provider DO Eusebio Olivares Primary Care Provider Eusebio Olivares DO Primary Care Provider Eusebio Olivares DO Primary Care Provider Dorene Valenzuela MD Admit Provider Dorene Valenzuela MD Attending Provider Angel Cook MD Other Provider Tenzin Ortiz MD Emergency Provider Donna Shaw APRN Emergency Provider [phone] Romain Roy DO Emergency Provider Unavai lable Lindbloom DO, Dwayne Admit Provider Lindbloom DO, Dwayne Attending Provider Law Cano MD Attending Provider [phone] Julio Allen MD Admit Provider Enrique Kirby DO Attending Provider Reina Armijo MD Other Provider Eusebio Olivares DO Primary Care Provider Dorene Valenzuela MD Admit Provider Dorene Valenzuela MD Attending Provider Angel Cook MD Other Provider Tenzin Ortiz MD Emergency Provider [phone] Donna Shaw APRN Emergency Provider [phone] Romain Roy DO Emergency Provider Unavai donavanpaulino Keonbloom DO, Dwayne Admit Provider Law Cano MD Attending Provider Julio Allen MD Admit Provider Toney Riley MD Attending Provider Crow Conte MD Other Provider Eusebio Olivares DO Primary Care Provider Angel Cook MD Other Provider Toney Riley MD Attending Provider Crow Conte MD Other Provider Eusebio Olivares DO Primary Care Provider Tenzin Ortiz MD Emergency Provider [phone] Donna Shaw APRN Emergency Provider Romain Roy DO Emergency Provider Guzman Little DO, Dwayne Admit Provider Law Cano MD Attending Provider Joyce MOLINA, Angel Other Provider Alejandro MOLINA, Julio Arreguin Admit Provider Rosemary MOLINA, Toney Attending Provider Dg MOLINA, Crow Other Provider Zeus Bradley DO Emergency Provider Eusebio Olivares DO Primary Care Provider [phone] Hector Mann DO Emergency Provider Judd Jacobs MD Admit Provider [phone] Judd Jacobs MD Attending Provider Bryce Coy MD Other Provider Georges ANTHONY-C, Samra Other Provider Unavailable Samina MOLINA, Nancy Other Provider Eusebio Olivares DO Primary Care Provider Brianna Gomez DO Unavailable [phone] Eusebio Olivares MD Primary Care Provider DAVID FERRELL Attending Unavailable DAVID FERRELL Attending Unavailable DAVID FERRELL Attending Unavailable DAVID FERRELL Attending Unavailable Eusebio Olivares DO Primary Care Provider Law Cano MD Attending Provider [phone] Angel Cook MD Other Provider Mickey Gr DO Emergency Provider STEPHEN ASENCIO Referring Unavailable LUCERO GUZMAN Attending Unavailable YESIKA CARDENAS Attending Unavailable MOUKARBEL, STEPHEN Attending Unavailable RATNAM, JO Referring Unavailable SINHA, MARIS Attending Unavailable MOUKARBEL, STEPHEN Admitting Unavailable MOUKARBEL, STEPHEN Attending Unavailable MOUKARBEL, STEPHEN Attending Unavailable THERESA, YESIKA Referring Unavailable MOUKARBEL, STEPHEN Referring Unavailable RATNAM, JO Referring Unavailable MOUKARBEL, STEPHEN Referring Unavailable MOUKARBEL, STEPHEN Referring Unavailable THEERSA, YESIKA Referring Unavailable THERESA, YESIKA Attending Unavailable Johnathan GORDON, Hector Emergency Provider Unavailable Denilson Gomez DO Attending Provider Eusebio Olivares DO Primary Care Provider Eusebio Olivares DO Attending Provider Bryce Coy MD Attending Provider [phone] Romain Mendoza MD Attending Provider Eusebio Olivares DO Primary Care Provider Nancy Haas MD Attending Provider Kishore Forte APRN Attending Provider Romain Mendoza MD Other Provider Eusebio Olivares DO Primary Care Provider BRIANNA GOMEZ Referring Unavailable EUSEBIO OLIVARES Primary Care Unavailable Eusebio Olivares DO Primary Care Provider Bryce Coy MD Attending Provider Angel Cook MD Attending Provider Heather Bryant CMA Attending Provider Unavaila ble Eusebio Olivares DO Attending Provider ChoujaBess storey DOal N Emergency Provider [phone] Dwayne Little DO Admit Provider Nadeen Grant MD Attending Provider Eusebio Olivares DO Primary Care Provider Bryce Coy MD Attending Provider Tenzin Ortiz MD Emergency Provider Allyson Munoz MD Emergency Provider Ludin MOLINA, Emran A Admit Provider Ludin MOLINA, Adrian A Attending Provider [phone] Eusebio Olivares DO Primary Care Provider Angel Cook MD Attending Provider [phone] Nancy Haas MD Attending Provider [phone] Romain Mendoza MD Attending Provider [phone] Anneliese MOLINA, Bryce Attending Provider [phone] Kishore Forte APRN Attending Provider Reji MOLINA, Romain Desir Other Provider [phone] Heather Bryant CMA Attending Provider Unavaila ble Eusebio Olivares DO Attending Provider Choamanuel GORDON, Angie N Emergency Provider Dwayne Little DO Admit Provider Rudy MOLINA, Nadeen Attending Provider Tenzin Ortiz MD Emergency Provider Allyson Munoz MD Emergency Provider Ludin MOLINA, Adrian A Admit Provider Chung Maria MD Attending Provider Brianna Gomez DO Unavailable Eusebio Olivares DO E Primary Care Provider Heather Ferrell RN Unavailable Unavailable Denilson Gomez Attending Unavailable Denilson Gomez Admitting Unavailable Ball, Eusebio Primary Care Unavailable Joyce, Angel Consulting Unavailable Ball, Eusebio Primary Care Unavailable Toney Riley Attending Unavailable Julio Allen Admitting Unavailab Crow Spear Consulting Unavailable Anabel Dwayne Admitting Unavailabl e Joyce, Angel Consulting Unavailable Law Cano Attending Unavailable Ball, Eusebio Primary Care Unavailable Judd Jacobs Admitting Unavailable Ball, Eusebio Primary Care Unavailable Bryce Coy Consulting Unavailable Law Cano Attending Unavailable Samra Su Consulting Unavailable Joyce, Angel Consulting Unavailable Bakhous, Aziz Consulting Unavailable [facility] Eusebio Primary Care Unavailable Dwayne Little Admitting Unavailabl e Nadeen Grant Attending Unavailable Joyce, Angel Consulting Unavailable MassouhDorene Attending Unavailable MassDorene munoz Admitting Unavailable Wingo, Eusebio Primary Care Unavailable Chung Maria Attending Unavailable Adrian Noland Admitting Unavailable Mischler, Nargis Consulting Unavailable Ball Eusebio Primary Care Unavailable Dianechler, Nargis Consulting Unavailable Denilson Gomez Consulting Unavailable Najera, Gabriel Consulting Unavailable Traboulssi, Iraida Consulting Unavailable Tiana Salvador Consulting Unavailable GonzalezJanine turner Consulting Unavailable Christy Delarosa Consulting Unavailable [facility] Eusebio Primary Care Unavailable Romain Mendoza Attending Unavailabl e Romain Mendoza Admitting Unavailabl e Donna Shaw Attending Unavailable Donna Shaw Admitting Unavailable [facility] Eusebio Primary Care Unavailable Zeus Bradley Attending Unavailable [facility] Eusebio Primary Care Unavailable Zeus Bradley Admitting Unavailable TupaMickey Attending Unavailable Wingo, Eusebio Primary Care Unavailable Mickey Gr Admitting Unavailable Tenzin Ortiz Jr Attending Unavailable Tenzin Ortiz Jr Admitting Unavailable Wingo, Eusebio Primary Care Unavailable Tenzin Ortiz Jr Admitting Unavailable Tenzin Ortiz Jr Attending Unavailable Wingo, Eusebio Primary Care Unavailable Denilson Gomez Attending Unavailable [facility] Eusebio Primary Care Unavailable Denilson Gomez Admitting Unavailable Romain Mendoza Admitting Unavailabl e Romain Mendoza Attending Unavailabl e [facility] Primary Care Unavailable CARMEN ROWLAND Attending Unavailable BALL, EUSEBIO E Primary Care Unavailable VARSHA MCDONNELL F Attending Unavailab BRIANNA Randle Referring Unavailable CHAITANYA SAAVEDRA Referring Unavailable BALL, EUSEBIO E Primary Care Unavailable TIANA SALVADOR Attending Unavailable MARSHALL EUSEBIO E Primary Care Unavailable BRIANNA GOMEZ Attending Unavailable BRIANNA GOMEZ Referring Unavailable MARSHALL, EUSEBIO E Primary Care Unavailable BRIANNA GOMEZ Attending Unavailable BRIANNA GOMEZ Referring Unavailable MARSHALL, EUSEBIO E Primary Care Unavailable Allergies Allergy ClassificationReported Allergen(s)Allergy TypeDate of OnsetReaction(s) Facility (3 sources)patient allergy list reviewed by nurse or physiciaPropensity to adverse mxqotlkyd90-51-4242Uutkvfq:[place] Hustles MagazineSamanthaIs That Odd Other (1 source)No Known Medication Allergies; Translations: [No Known Medication Allergies]Propensity to adverse reactions (disorder)[facility] Repository (12 sources)Ticagrelor; Translations: [TICAGRELOR]Drug Jemmpdi35-89-5466 Shortness of [facility] (3 sources)TicagrelorPropensity to adverse rkexxdmaw46-29-7569AnektaxqtBay[facility] (1 source)TicagrelorDrug Expkbpu37-81-4908[facility] Medications Current Medications MedicationDrug Class(es)DatesSig (Normalized)Sig (Original)acetaminophen 500 mg oral tablet (20 sources)Start: 02-46-5965xfjzdNZBSYNJP 250 mg oral tablet (2 sources)Carbonic Anhydrase Inhibitortake 1 tablet by mouth every twenty-four hoursacetaZOLAMIDE 250 MG 1 tablet Orally Once a day Activeaspirin 81 mg chewable tablet (20 sources)Platelet Aggregation Inhibitor, Nonsteroidal Anti-inflammatory Drug Start: 11-17-2021 End: 25-26-3658yifzmau 81 mg chewable tablet Indications: ASHD (arteriosclerotic heart disease) Chew 1 tablet (81 mg) once daily. 90 tablet 3 09/29/2024 09/29/2025 Activetake 1 tablet by mouth once dailyAspirin 81 81 MG 1 tablet Orally Once a day Activetake 1 tablet by mouth once dailyAspirin 81 MG Oral Tablet Delayed Release TAKE 1 TABLET DAILY. Quantity: 90 Refills: 3 Ordered: 26-Feb-2023 Brianna Gomez DO Activeatorvastatin 80 mg oral tablet (20 sources)HMG-CoA Reductase InhibitorStart: 05-12-0063huyf 1 tablet by mouth once dailyatorvastatin (Lipitor) 80 mg tablet Indications: Hyperlipidemia, unspecified hyperlipidemia type TAKE 1 TABLET BY MOUTH EVERY NIGHT 90 tablet 3 01/13/2025 ActiveStart: 11-17-2021 End: 15-18-9117Xestr: 08-08-2021 End: 83-26-9007Igfpzexe KwikPen (2 sources)Start: 90-83-6162Pbdpalmv KwikPen SubCutaneous, Daily Start Date: 08/29/22 Status: OrderedBlood Glucose Monitoring Suppl (Accu-Chek Guide Me) w/Device kit (11 sources)Start: 65-17-0083Tkwdn Glucose Monitoring Suppl (Accu-Chek Guide Me) w/Device kit USE DIRECTED 08/27/2023 ActiveStart: 54-49-9026Iwxlc Glucose Monitoring Suppl (Accu-Chek Guide Me) w/Device kit USE DIRECTED 0 08/27/2023 ActiveBlood-Glucose Meter (Accu-Chek Guide Glucose Meter) misc (20 sources)Start: 17-09-2495Sacyj-Glucose Meter (Accu-Chek Guide Glucose Meter) misc Active 0 .ROUTE .COMPLEX January 08, 2025 1:12pm USE DIRECTEDStart: 10-14-2024 End: 33-57-4781Pqlls-Glucose Meter (Accu-Chek Guide Glucose Meter) misc Discontinued 0 .ROUTE .MEDSUPPLY October 14, 2024 1:00am January 08, 2025 1:12pm As directedStart: 62-23-6414Juszq-Glucose Meter (Accu-Chek Guide Glucose Meter) misc Active 0 .ROUTE .MEDSUPPLY October 14, 2024 1:00am As directed Start: 07-22-0724Qqwxr-Glucose Meter (Accu-Chek Guide Glucose Meter) misc Active 0 .ROUTE .MEDSUPPLY October 14, 2024 12:00am As directedBlood-Glucose Meter,Continuous (Freestyle Ramy [place]) misc (20 sources)Start: 44-36-5268Ulrhv-Glucose Meter,Continuous (Freestyle Ramy [place]) misc Active 0 .ROUTE .MEDSUPPLY March 18, 2024 11:00pm As directed Start: 87-84-0511Vwfpg-Glucose Meter,Continuous (Freestyle Ramy 3 [place]) misc Active 0 .ROUTE .MEDSUPPLY March 19, 2024 12:00am As directedStart: 03-02-2024 End: 56-96-9286Ojymt-Glucose Meter,Continuous (Freestyle Ramy 3 [place]) misc Discontinued 0 .Route March 02, 2024 12:00am October 15, 2024 8:46pm As directedStart: 67-32-2925Oiqmp-Glucose Meter,Continuous (Freestyle Ramy 3 [place]) misc Active 0 .Route 1 March 01, 2024 11:00pm As directedStart: 71-66-9728Wkleb-Glucose Meter,Continuous (Freestyle Ramy 3 [place]) misc Active 0 .Route 1 March 02, 2024 12:00am As directedBlood-Glucose Sensor (Freestyle Ramy 3 Plus Sensor) device (20 sources)Start: 16-68-6104Zorav-Glucose Sensor (Freestyle Ramy 3 Plus Sensor) device Active 0 .ROUTE .MEDSUPPLY May 17, 2024 12:00am As directedStart: 18-20-1535Dbdih-Glucose Sensor (Freestyle Ramy 3 Plus Sensor) device Active 0 .ROUTE .MEDSUPPLY May 16, 2024 11:00pm As directed Blood-Glucose,Tractor Expert,Cont (Freestyle Ramy 3 [place]) misc (20 sources)Start: 14-29-7932Qcwbm-Glucose,Tractor Expert,Cont (Freestyle Ramy 3 [place]) misc Active 0 .ROUTE .MEDSUPPLY March 19, 2024 12:00am As directed Start: 03-02-2024 End: 57-05-9920Onqtk-Glucose,Tractor Expert,Cont (Freestyle Ramy 3 [place]) misc Discontinued 0 .Route March 022:00am October 15, 2024 8:46pm As directedcalcium acetate 667 mg oral tablet (20 sources)Start: 04-64-4338iagv 3 tablets by mouth at mealtimeCalcium Acetate 667 mg tablet Active 2001 MG PO .tidwith meal November 13, 2023 2:59pm Complies withdrug therapyStart: 58-17-7939qrmn 2 capsules by mouth three times daily at mealtimecalcium acetate (Phoslo) 667 MG capsule TAKE 2 CAPSULES BY MOUTH 3 TIMES DAILY WITH EACH MEAL 03/27/2023 ActiveStart: 03-26-2023 End: 45-95-8028Embmh: 03-26-2023 End: 12-58-7770Thqumeo Acetate 667 mg Tablet Discontinued 667 MG PO As Directed March 26, 2023 12:00am November 13, 2023 3:08pmStart: 03-26-2023 End: 78-20-8356kjxy 2 tablets by mouth three times dailyCalcium Acetate 667 mg tablet Active 1334 MG PO Three times daily November 13, 2023 2:59pmcalcium carbonate 500 mg chewable tablet (20 sources)Start: 34-34-5782zwwy 1 tablet by mouth every eight hoursTums 500 MG 1 tablet Orally tid for 90 days Sep, Activetake 2 tablets by mouth three times daily at mealtimeTums 500 MG 2 tablet Orally TID with meal for 90 days Activecarvedilol 25 mg oral tablet (20 sources)alpha-Adrenergic Brittany, beta-Adrenergic BlockerStart: 07-21-2024 Start: 01-09-2023 End: 81-55-9736alyr 1 tablet by mouth twice dailycarvedilol (Coreg) 25 mg tablet Take 1 tablet (25 mg) by mouth 2 times a day. 07/18/2023 ActiveStart: 11-13-2021 End: 60-84-4393qxwx 1 tablet by mouth every twenty-four hoursCarvedilol 12.5 MG 1 tablet with food Orally ONCE A DAY Activecinnamon and chromium (2 sources)Start: 10-17-0037lqzorsaz and chromium cinnamon and chromium Start Date: 08/10/19 Status: Orderedclopidogrel 75 mg oral tablet (20 sources)P2Y12 Platelet InhibitorStart: 11-17-2021 End: 97-92-0419ocgu 1 tablet by mouth once dailyclopidogrel (Plavix) 75 mg tablet Indications: History of VA (myocardial infarction) TAKE 1 TABLET BY MOUTH ONCE DAILY. 90 tablet 3 04/13/2025 ActiveContinuous Blood Gluc Sensor (Dexcom G6 Sensor) misc (11 sources)Start: 66-39-2444Cqfepzdhgz Blood Gluc Sensor (Dexcom G6 Sensor) misc CHANGE SENSOR EVERY 10 DAYS*E10.65* 08/23/2023ctiveStart: 08-23-2023 Continuous Blood Gluc Sensor (Dexcom G6 Sensor) misc CHANGE SENSOR EVERY 10 DAYS*E10.65* 0 08/23/2023 ActiveContinuous Blood Gluc Transmit (Dexcom G6 transmitter) misc (11 sources)Start: 27-61-1370Cxjercelmg Blood Gluc Transmit (Dexcom G6 transmitter) misc CHANGE EVERY 90 DAYS DX E10.65 09/07/2023 ActiveStart: 44-94-8910Kecnqdabgb Blood Gluc Transmit (Dexcom G6 transmitter) misc CHANGE EVERY 90 DAYS DX E10.65 0 09/07/2023 VbdpckLfM63 (2 sources)Start: 52-09-7568xpqy 1 mg by mouth once lidyzVmQ29 mg, Oral, Daily, Refills(s) 0 Start Date: 08/10/19 Status: OrderedDexcom G6 Transmitter - (4 sources)Dexcom G6 Transmitter - CHANGE EVERY 90 DAYS. ICD 10 E10.65 for 90 Activediclofenac sodium 0.01 mg/mg topical gel (11 sources)Nonsteroidal Anti-inflammatory DrugStart: 05-50-6832kyhedxmqsy sodium (Voltaren) 1 % gel Indications: Left shoulder pain, unspecified chronicity , Impingement of left shoulder Apply 2 g topically in the morning and 2 g in the evening and 2 g before bedtime. 50 g 2 09/09/2023 ActiveEpoetin Alexus (9 sources)Erythropoiesis-stimulating Agentinject 8000 [IU] by subcutaneous injection three times weeklyepoetin alexus (EPOGEN INJ) Inject 8,000 Units under the skin 3 times a week. Activeepoetin alexus-epbx 42047 UNT/ML Injectable Solution [Retacrit] (20 sources)Retacrit 75721 UNIT/ML as directed Injection ONCE EVERY 4 WEEKS Not-TakingRetacrit 61233 UNIT/ML as directed Injection ONCE EVERY 4 WEEKS Active famotidine 20 mg oral tablet (20 sources)Histamine-2 Receptor AntagonistStart: 56-60-8755Xlrgv: 06-22-2024 End: 32-10-2542Cqxgp: 03-23-2024 End: 80-18-9564Bxmjg: 11-13-2021 End: 61-64-5818Tphfx: 11-13-2021 End: 27-47-7333wiyo 2 tablets by mouth once daily at bedtimeFamotidine 20 mg tablet Discontinued 40 MG PO Daily at bedtime November 13, 2021 12:00am March 11:04amStart: 11-13-2021 End: 06-60-3272mmmc 40 mg by mouth once daily at bedtimeFamotidine Discontinued 40 MG PO Daily at bedtime November 13, 2021 12:00am March 23, 2024 11:04amtake 1 tablet by mouth once daily at bedtimefamotidine (Pepcid) 20 mg tablet Take 1 tablet (20 mg) by mouth once daily at bedtime. Activegabapentin 100 mg oral capsule (17 sources)Anti-epileptic AgentStart: 39-53-7347excu 1 capsule by mouth once daily at bedtimegabapentin (Neurontin) 100 mg capsule Take 1 capsule (100 mg) by mouth once daily at bedtime. 05/07/2025 Active2 ml heparin sodium, porcine 1000 unt/ml injection (9 sources)Unfractionated Heparin, Anti-coagulantheparin sodium,porcine/PF (heparin, porcine, PF,) 1,000 unit/mL solution Infuse 1 mL (1,000 Units) into a venous catheter 3 times a week. ActivehydrALAZINE hydrochloride 50 mg oral tablet (20 sources)Arteriolar VasodilatorStart: 92-75-6716Rmmpe: 08-07-2024 End: 53-19-5608dynx 1 tablet by mouth three times dailyhydrALAZINE (Apresoline) 100 mg tablet Indications: Essential hypertension, benign Take 1 tablet (100 mg) by mouth 3 times a day. 270 tablet 3 05/27/2025 05/27/2026 ActiveStart: 03-17-2024 End: 18-41-7106lkzv 1 tablet by mouth twice dailyHydralazine 100 mg tablet Active 100 MG PO Twice daily 60 August 07, 2024 6:51pm Complies with drug therapyStart: 10-03-2022 End: 85-23-6690Lanze: 10-03-2022 End: 14-29-7438ygtd 1 tablet by mouth three times dailyHydralazine 50 mg tablet Discontinued 50 MG PO Three times daily November 13, 2023 12:00am November 26, 2023 8:56amStart: 11-18-2021 End: 70-17-7894Mxwqg: 11-18-2021 End: 57-11-5687zbex 1 mg by mouth four times dailyhydrALAZINE 25 mg Tab mg tab(s), Oral, QID Start Date: 08/29/22 Status: OrderedStart: 11-18-2021 End: 53-21-7309pnvc 50 mg by mouth three times dailyHydralazine Discontinued 50 MG PO Three times daily 180 November 18, 2021 12:00am October 03, 2022 7:01pmtake 1 tablet by mouth three times dailyhydrALAZINE HCl - 25 MG Oral Tablet TAKE 1 TABLET 3 TIMES DAILY. Quantity: 0 Refills: 0 Ordered: 21-Nov-2021 DO ActivehydrOXYzine hydrochloride 25 mg oral tablet (20 sources)AntihistamineStart: 30-06-1169Lxfsh: 10-16-2024 End: 35-97-5647xgli 1 tablet by mouth once daily at bedtimeHydroxyzine Hcl 25 mg tablet Discontinued 0 .ROUTE .COMPLEX 90 October 16, 2024 7:56am October 30, 2024 8:30am TAKE 1 TABLET BY MOUTH EVERYDAY AT BEDTIMEStart: 05-21-2024 End: 54-88-5867Qarjt: 05-21-2024 End: 38-00-5477atgi 1 tablet by mouth at bedtimeHydroxyzine Hcl 25 mg tablet Discontinued 0 .ROUTE .COMPLEX 90 May 21, 2024 12:41pm September 02, 2024 10:16pm TAKE 1 TABLET BY MOUTH AT BEDTIMEStart: 04-29-2024 End: 92-04-1507rbjmbgothjo sulfate 0.125 mg oral tablet (11 sources)Start: 16-22-6252ynwv 1 tablet by mouth every six hours as needed for painhyoscyamine (Anaspaz,Levsin) 0.125 MG tablet TAKE 1 TABLET BY MOUTH EVERY 6 HOURS NEEDED FOR ABDOMINAL PAIN 07/09/2023 Active3 ml insulin glargine 100 unt/ml pen injector (20 sources)Insulin AnalogStart: 10-14-2024 End: 49-42-4832Wflhp: 11-26-2023 End: 04-53-9986Oemun: 11-26-2023 End: 73-53-6380bdnhlt 20 [IU] by subcutaneous injection at bedtimeInsulin Glargine (Lantus U-100 Insulin) 100 unit/mL solution Discontinued 20 UNIT SUBCUT Bedtime November 26, 2023 12:00am October 14, 2024 3:08pmStart: 04-12-2023 End: 13-60-1804Rdvhu: 04-12-2023 End: 26-33-9012xvccos 10 [IU] by subcutaneous injection once dailyInsulin Glargine (Lantus Solostar U-100 Insulin) 100 unit/mL (3 mL) insulin pen Discontinued 10 UNIT SUBCUT Daily April 12, 2023 12:00am November 13, 2023 3:01pmStart: 45-17-8952apsogph glargine (LANTUS SOLOSTAR, BASAGLAR KWIKPEN) 100 unit/mL (3 mL) Insulin Glargine (Basaglar Kwikpen U-100 Insulin) 100 unit/mL (3 mL) insulin pen Active 15 UNIT SUBCUT Daily September 110:23pm 0 09/11/2021 ActiveStart: 09-11-2021 End: 91-43-4228Grxgk: 09-11-2021 End: 65-43-1950Nqphgjp Glargine (Basaglar Kwikpen U-100 Insulin) 100 unit/mL (3 mL) insulin pen Discontinued 12 UNIT SUBCUT Every morning September 11, 2021 1:00am January 09, 2023 2:53amStart: 50-29-0237wbjqnde glargine (LANTUS SOLOSTAR, BASAGLAR KWIKPEN) 100 unit/mL (3 mL) Insulin Glargine (Basaglar Kwikpen U-100 Insulin) 100 unit/mL (3 mL) insulin pen Active 15 UNIT SUBCUT Daily September 110:23pm 0 09/11/2021 ActiveComment on above:Insulin Glargine (Basaglar Kwikpen U-100 Insulin) 100 unit/mL (3 mL) insulin pen Active 15 UNIT SUBCUT Daily September 11, 2021 10:23pm3 ml insulin lispro 100 unt/ml pen injector (20 sources)Insulin AnalogStart: 22-38-7970Dqfmyjf Lispro (Humalog Kwikpen Insulin) 100 unit/mL insulin pen Active 0 sliding scale dose SUBCUTUse as Directed Protocol: *If the corrective scale dose has been administered within the past 4 hours, do not use corrective scale again unless approved by prescriber* Condition: Custom Scale 1:___ Condition: Dose/Route: Instructions: Condition: Fingerstick Blood Glucose Dose/Route: Insulin Units Condition: 101- 150mg/dl Dose/Route: 2 unit Condition: 151-200mg/dl Dose/Route: 4 units Condition: 201-250mg/dl Dose/Route: 6 units Condition: 251-300mg/dl Dose/Route: 8 units Condition: 301-350mg/dl Dose/Route: 10 units Condition: Greater than or = 400 mg/dl Dose/Route: 12 units October 14, 2024 2:43pm Please contact the information source for Protocol details. Complies with drug therapyStart: 11-13-2023 End: 44-86-1253Opjwu: 05-29-2022 End: 41-38-4030Ykobu: 28-37-7608TvpvYKJ KwikPen 100 UNIT/ML Subcutaneous Solution Pen-injector USE DIRECTED Quantity: 0 Refills:0 Ordered: 24-May-2022 DO Start : 24-May-2022 ActiveHumaLOG KwikPen Insulin 100 unit/mL injection Inject under the skin. ActiveHumaLOG 100 UNIT/ML as directed Injection SLIDING SCALE NEEDED ActiveHumaLOG KwikPen 100 UNIT/ML 1 (one) mL 2-10u SC AC based on insulin sliding scale, Insulin Sliding Scale before meals: BS 300 10u Active HumaLOG 100 UNIT/ML as directed Injection SLIDING SCALE NEEDED ActiveInsulin Lispro (Humalog Kwikpen Insulin) 100 unit/mL insulin pen (20 sources)Start: 66-44-7340Ceuydvr Lispro (Humalog Kwikpen Insulin) 100 unit/mL insulin pen Active 0 sliding scale dose SUBCUTUse as Directed October 14, 2024 2:43pm Please contact the information source for Protocol details. Start: 81-54-9528Uoyxrsm Lispro (Humalog Kwikpen Insulin) 100 unit/mL insulin pen Active 0 sliding scale dose SUBCUTUse as Directed October 14, 2024 1:43pm Please contact the information source for Protocol details.Start: 11-13-2023 End: 54-22-3183Sancrco Lispro (Humalog Kwikpen Insulin) 100 unit/mL insulin pen Discontinued 1 sliding scale dose SUBCUT Use as Directed November 13, 2023 12:00am October 14, 2024 2:48pmStart: 11-13-2023 End: 50-98-2552Orgiwqq Lispro (Humalog Kwikpen Insulin) 100 unit/mL insulin pen Discontinued 1 sliding scale dose SUBCUT Use as Directed November 12, 2023 11:00pm October 14, 2024 1:48pmStart: 89-80-1773Junjgeo Lispro (Humalog Kwikpen Insulin) 100 unit/mL insulin pen Active 1 sliding scale dose SUBCUTUse as Directed November 12, 2023 11:00pmStart: 31-46-3404Unzttrq Lispro (Humalog Kwikpen Insulin) 100 unit/mL insulin pen Active 1 sliding scale dose SUBCUTUse as Directed November 13, 2023 12:00am24 hr isosorbide mononitrate 60 mg extended release oral tablet (20 sources)Nitrate VasodilatorStart: 10-15-4873svec 1 tablet by mouth twice dailyisosorbide mononitrate ER (Imdur) 60 mg 24 hr tablet Take 1 tablet (60 mg) by mouth 2 times a day. 08/09/2023 ActiveStart: 10-03-2022 End: 36-80-5362Yhytf: 10-03-2022 End: 03-51-0950mupf 1 tablet by mouth once daily, then take 1 tablet by mouth every twenty-four hoursIsosorbide Mononitrate 60 mg Tablet Extended Release 24 Hr Discontinued 60 MG PO Daily at 0600 30 30 October 03, 2022 1:00am November 12, 2022 9:50amStart: 07-05-2022 End: 83-66-7448Rfokklcfuy Dinitrate (2 sources)Nitrate VasodilatorStart: 23-74-1481trdqacwlmt dinitrate Oral Start Date: 08/29/22 Status: Orderedketorolac tromethamine 5 mg/ml ophthalmic solution (3 sources)Nonsteroidal Anti-inflammatory Drug, Cyclooxygenase InhibitorStart: 09-05-2023 End: 70-08-8309pqnt 1 drop(s) into the eye(s) in the morningketorolac (Acular) 0.5 % ophthalmic solution Indications: Cataract of left eye with neovascularization Administer 1 drop into affected eye(s) in the morning and 1 drop before bedtime. 5 mL 1 09/05/2023 10/05/2023 Activenitroglycerin 0.4 mg sublingual tablet (20 sources)Nitrate VasodilatorStart: 56-05-2026Golljzxbzkjhg 0.4 MG as directed Sublingual Activeofloxacin 3 mg/ml ophthalmic solution (11 sources)Quinolone AntimicrobialStart: 54-94-3704qeis 1 drop(s) into the eye(s) four times dailyofloxacin (Ocuflox) 0.3 % ophthalmic solution INSTILL 1 DROP INTO RIGHT EYE 4 TIMES A DAY DIRECTED 07/23/2023 Activeomeprazole 40 mg delayed release oral capsule (20 sources)Proton Pump InhibitorStart: 01-17-4163Oeiot: 05-09-2022 End: 69-03-9716bvmp 1 capsule by mouth once dailyomeprazole (PriLOSEC) [address] capsule Take 1 capsule (20 mg) by mouth once daily. Activeondansetron 4 mg disintegrating oral tablet (20 sources)Serotonin-3 Receptor AntagonistStart: 82-74-0786yqmvcbidxok ODT (Zofran-ODT) 4 MG disintegrating tablet DISSOLVE 1 TABLET ON THE TONGUE EVERY 6 HOURS NEEDED FOR NAUSEA/ VOMITING 07/09/2023 ActiveStart: 09-19-2021 End: 49-39-2695Lxoru: 09-11-2021 End: 90-37-3922Ytozprn on above:Take 4 mg by mouth every 6 hours as needed.One Touch Glucometer (4 sources)Start: 71-15-8712Dyy Touch Glucometer use as directed for 365 days Ultra meter Aug, Activeparicalcitol 0.001 mg oral capsule (3 sources)Vitamin D3 Analog End: 70-24-4707wqdi 3 capsules by mouth three times weeklyparicalcitol (Zemplar) 1 mcg capsule Take 3 capsules (3 mcg) by mouth 3 times a week. 11/24/2024 Dis continued (Therapy completed)polyethylene glycol 3350 254516 mg / potassium chloride 2970 mg / sodium bicarbonate 6740 mg / sodium chloride 5860 mg / sodium sulfate 38898 mg powder for oral solution (11 sources)Osmotic LaxativeStart: 22-44-6339AjzgKuek-G 236 g solution TAKE 240 ML EVERY 10 MINUTES UNTIL FECAL EFFLUENT IS CLEAR 07/09/2023 Active Facighcqwld-Bhifxbmi-Ofvtqzuvj 1-0.5-0.075 % solution (11 sources)Start: 31-36-6489Vxgpcbsnoxk-Moxiflox-Bromfenac 1-0.5-0.075 % solution Indications: Cataract of left eye with neovascularization Administer 1 drop into affected eye(s) in the morning and 1 drop at noon and 1 drop in the evening and 1 drop before bedtime. 10 mL 1 09/05/2023 Activeretacrit 48382 unit/ml solution (5 sources)Retacrit 33773 UNIT/ML as directed Injection ONCE EVERY 4 WEEKS Activesacubitril 24 mg / valsartan 26 mg oral tablet (5 sources)Angiotensin 2 Receptor BlockerStart: 73-18-0431ouhlpikvdO-valsartan (Entresto) 24-26 mg tablet 1 tablet. 06/01/2025 Activesertraline 100 mg oral tablet (20 sources)Serotonin Reuptake InhibitorStart: 07-21-2024 End: 40-94-1744Jbzxe: 02-18-2024 End: 00-72-7241Xtzer: 07-16-2023 End: 76-10-5787lbwq 1 tablet by mouth in the morningsertraline (Zoloft) 100 mg tablet Take 1 tablet (100 mg) by mouth early in the morning.. 7282Kmsfjj3 ml sodium ferric gluconate complex 12.5 mg/ml injection (2 sources) End: 02-12-4533oeopcl gluconate (Ferrlecit) 62.5 mg/5 mL injection Infuse 5 mL (62.5 mg) into a venous catheter every other day. 06/11/2024 Discontinued (Therapy completed)sodium zirconium cyclosilicate 44299 mg powder for oral suspension (7 sources)Start: 86-15-8711huss 1 dose by mouth once dailyLokelma 10 GM 1 packet dissolved in water Orally Once a day for 30 day(s) Oct, Active Vitamin D (2 sources)Start: 01-33-4335Iftfbgm D International_Unit, Oral, qWeek Start Date: 08/29/22 Status: Ordered (20 sources)Start: 74-44-5025Nnksq: 28-08-7572Ftcuq: 10-14-2024 End: 99-43-9254Nqxyq: 10-14-2024 End: 22-37-1095Tonyi: 28-78-4746Qdkja: 09-17-2024 End: 92-36-8264Bvbth: 08-17-2024 End: 91-60-3466Pdrge: 05-21-2024 End: 77-28-9509Takee: 13-84-0814Kjmuj: 15-87-1864Ndaov: 03-19-2024 End: 01-29-1547Ilvek: 03-02-2024 End: 37-86-4797Vvwwz: 38-64-9930Hpftw: 03-02-2024 End: 74-40-2532Fibta: 03-02-2024 End: 03-58-6495Dddur: 02-13-2024 End: 74-60-8419Rntbo: 32-08-4316Nfqkz: 11-13-2023 End: 95-15-7283Ziqxa: 50-72-8809Qpsaw: 11-13-2023 End: 31-93-5310Gnpam: 05-29-2022 End: 11-13-2023 Completed/Discontinued Medications MedicationDrug Class(es)DatesSig (Normalized)Sig (Original)albuterol 0.83 mg/ml inhalation solution (20 sources)beta2-Adrenergic AgonistStart: 03-24-2024 End: 85-78-0721Alkjh: 03-24-2024 End: 47-61-8563rmfa 2.5 mg by inhalation every six hours as needed for cough Albuterol Sulfate 2.5 mg /3 mL (0.083 %) solution for nebulization Discontinued 2.5 MG INHALATION Every 6 hours as needed for cough March 25, 2024 1:04pm August 28, 2024 9:00amStart: 11-14-2023 End: 22-65-8062Ddyyd: 11-14-2023 End: 62-23-7705Llcgg: 11-14-2023 End: 58-94-1722ihyu 2.5 mg by inhalation every four to six hours as needed Albuterol Sulfate 2.5 mg /3 mL (0.083 %) solution for nebulization Discontinued 2.5 MG INHALATION EVERY 4-6 HOURS as needed for bronchospasm 180 November 14, 2023 3:16pm November 26, 2023 8:55amStart: 11-14-2023 End: 88-15-9744ejfb 1 puff(s) by inhalation every six hours as neededAlbuterol Sulfate 90 mcg/actuation HFA aerosol inhaler Discontinued 2 PUFF INHALATION Every 6 hoursas needed for bronchospasm 8.5 November 14, 2023 3:16pm March 02, 2024 1:09pmamLODIPine 5 mg oral tablet (20 sources)Dihydropyridine Calcium Channel BlockerStart: 11-01-2024 End: 09-64-8257Ursyd: 10-16-2024 End: 60-35-2684Ehhue: 62-18-4686hsbv 1 tablet by mouth once dailyamLODIPine (Norvasc) 10 mg tablet Take 1 tablet (10 mg) by mouth once daily. 04/29/2024 ActiveStart: 04-29-2024 End: 24-21-1755Tgqoz: 04-29-2024 End: 21-98-2676ynwi 4 tablets by mouth once dailyAmlodipine 2.5 mg tablet Discontinued 10 MG PO Daily August 28, 2024 1:00am October 16, 2024 7:57am Start: 08-18-2023 End: 92-78-3015Edovc: 08-18-2023 End: 56-11-7507voie 1 tablet by mouth once dailyAmlodipine 2.5 mg tablet Discontinued 2.5 MG PO Daily April 29, 2024 12:00am August 28, 2024 9:02amStart: 08-21-2021 End: 24-71-5717zhZDMNJhct Besylate Activeamoxicillin 875 mg / clavulanate 125 mg oral tablet (20 sources)Penicillin-class AntibacterialStart: 03-02-2024 End: 91-67-7586Rhpzk: 03-02-2024 End: 06-85-9543xjzk 1 tablet by mouth twice dailyAmoxicillin-Pot Clavulanate 875-125 mg tablet Discontinued 1 TAB PO Twice daily March 02, 2024 12:00am March 10, 2024 7:40amazithromycin 250 mg oral tablet (20 sources)Macrolide AntimicrobialStart: 08-29-2024 End: 98-87-4520jvlszmytkoo 100 mg oral capsule (20 sources)Non-narcotic AntitussiveStart: 03-02-2024 End: 10-10-6008Tuhad-Glucose Sensor (Freestyle Ramy 3 Sensor) device (20 sources)Start: 03-19-2024 End: 90-36-7496Rsoir-Glucose Sensor (Freestyle Ramy 3 Sensor) device Discontinued 0 .ROUTE .MEDSUPPLY March 19, 2024 12:00am May 17, 2024 5:51pm Use to test home BS qidStart: 03-19-2024 End: 76-10-2207Nmcwj-Glucose Sensor (Freestyle Ramy 3 Sensor) device Discontinued 0 .ROUTE .MEDSUPPLY March 18, 2024 11:00pm May 17, 2024 4:51pm Use to test home BS qidStart: 69-28-0042Myjrs-Glucose Sensor (Freestyle Ramy 3 Sensor) device Active 0 .ROUTE .MEDSUPPLY March 19, 2024 12:00am Use to test home BS qidStart: 03-02-2024 End: 75-98-0887Akylr-Glucose Sensor (Freestyle Ramy 3 Sensor) device Discontinued 0 .Route 1 March 02, 2024 12:00am May 17, 2024 5:51pm As directedStart: 03-02-2024 End: 66-98-0349Bursr-Glucose Sensor (Freestyle Ramy 3 Sensor) device Discontinued 0 .Route March 01, 2024 11:00pm May 17, 2024 4:51pm As directedStart: 85-18-6858Qnhfo-Glucose Sensor (Freestyle Ramy 3 Sensor) device Active 0 .Route 1 March 02, 2024 12:00am Asdirectedbrimonidine tartrate 2 mg/ml ophthalmic solution (1 source)alpha-Adrenergic AgonistStart: 37-58-9437tokd 1 drop(s) into the eye(s) three times dailybrimonidine (ALPHAGAN) 0.2 % ophthalmic solution Use 1 Drop in the left eye three times daily for 7days. 10 mL 0 10/01/2021 Active Comment on above:Use 1 Drop in the left eye three times daily for 7 days. cephalexin 500 mg oral capsule (20 sources)Cephalosporin AntibacterialStart: 08-29-2024 End: 42-55-6319jhtzvlhqwqksieaf hydrobromide 1 mg/ml / guaiFENesin 20 mg/ml oral solution (20 sources)Uncompetitive L-emiduu-G-aspartate Receptor Antagonist, Sigma-1 AgonistStart: 08-17-2024 End: 20-57-7169Ukhuu: 08-17-2024 End: 20-62-3300rumx 1 mL by mouth five times daily as needed for cough Dextromethorphan-Guaifenesin (Robitussin Cough-Chest Matt Dm) 5-100 mg/5 mL liquid Discontinued 10 ML PO EVERY 4-8 HOURS as needed for cough August 17, 2024 1:00am August 28, 2024 9:00amStart: 08-17-2024 End: 12-62-4411dzvg 1 mL by mouth five times daily as needed for cough Dextromethorphan-Guaifenesin (Robitussin Cough-Chest Matt Dm) 5-100 mg/5 mL liquid Discontinued 10 ML PO EVERY 4-8 HOURS as needed for cough August 17, 2024 1:00am August 28, 2024 9:00amStart: 08-17-2024 End: 68-41-1349bngp 1 mL by mouth five times daily as needed for cough Dextromethorphan-Guaifenesin (Robitussin Cough-Chest Matt Dm) 5-100 mg/5 mL liquid Discontinued 10 ML PO EVERY 4-8 HOURS as needed for cough August 17, 2024 12:00am August 28, 2024 8:00amStart: 95-56-9801yngf 1 mL by mouth five times daily as needed for coughDextromethorphan-Guaifenesin (Robitussin Cough-Chest Matt Dm) 5-100 mg/5 mL liquid Active 10 ML PO EVERY 4-8 HOURS as needed for cough 500 August 17, 2024 12:00amdicyclomine hydrochloride 10 mg oral capsule (20 sources)AnticholinergicStart: 09-11-2021 End: 08-01-7740wnpembulamz HCl/PF (DORZOLAMIDE, PF,) 2 % drop (2 sources)Start: 87-80-7614cocy 1 drop(s) into the eye(s) three times daily dorzolamide HCl/PF (DORZOLAMIDE, PF,) 2 % drop Use 1 Drop in eyes three times daily. 10 mL 0 10/01/2021 ActiveComment on above:Use 1 Drop in eyes three times daily.doxycycline hyclate 100 mg oral tablet (20 sources)Tetracycline-class DrugStart: 08-17-2024 End: 48-28-9213Vdvzs: 41-00-4256hslm 1 capsule by mouth twice dailydoxycycline hyclate 100 mg Cap 100 mg = 1 cap(s), Oral, BID, # 14 cap(s), Refills(s) 0, Pharmacy: [facility]/pharmacy #[id number], 182, cm, 08/29/22 10:31:00 EST, Height/Length Dosing, 76.2, kg, 08/29/22 10:31:00EST, Weight Dosing Start Date: 09/03/22 Status: OrderedEpoetin Alexus-Epbx (20 sources)Start: 04-09-2022 End: 91-69-5824Ymirc: 04-09-2022 End: 76-82-6697qkhqwk 12487 [IU] by subcutaneous injection every monthEpoetin Alexus-Epbx (Retacrit) 20,000 unit/mL solution Discontinued 76900 UNIT SUBCUT every month April 08, 2022 11:00pm November 26, 2023 7:56amStart: 04-09-2022 End: 97-23-5464zvpdbm 62477 [IU] by subcutaneous injection every monthEpoetin Alexus-Epbx (Retacrit) 20,000 unit/mL solution Discontinued 71296 UNIT SUBCUT every month April 09, 2022 12:00am November 26, 2023 8:56amStart: 04-09-2022 inject 08602 [IU] by subcutaneous injection every monthEpoetin Alexus-Epbx (Retacrit) 20,000 unit/mL solution Active 65930 UNIT SUBCUT every month April 08, 2022 11:00pmStart: 49-38-5261aygxyy 74874 [IU] by subcutaneous injection every monthEpoetin Alexus-Epbx (Retacrit) 20,000 unit/mL solution Active 24321 UNIT SUBCUT every month April 09, 2022 12:00amEpoetin Alexus-Epbx (20 sources)Start: 11-13-2023 End: 20-49-9239Whslj: 11-13-2023 End: 33-18-8077Bgmlkwd Alexus-Epbx (Retacrit) 20,000 unit/2 mL solution Discontinued 36083 UNIT SUBCUT .q4wks November 12, 2023 11:00pm November 26, 2023 7:56amStart: 11-13-2023 End: 42-96-8469Lupgnwi Alexus-Epbx (Retacrit) 20,000 unit/2 mL solution Discontinued 00214 UNIT SUBCUT .q4wks November 13, 2023 12:00am November 26, 2023 8:56amStart: 34-19-3322Fzqdngd Alxeus-Epbx (Retacrit) 20,000 unit/2 mL solution Active 36644 UNIT SUBCUT .q4wks November 13, 2023 12:00amErgocalciferol (20 sources)Provitamin D2 CompoundStart: 11-13-2023 End: 07-83-9872Xvfagckbgfnlqw (Vitamin D2) Discontinued UNIT PO November 13, 2023 12:00am November 26, 2023 8:56amStart: 98-09-5179Qqlszrpqxpugwe (Vitamin D2) Active UNIT PO November 13, 2023 12:00amStart: 21-70-3387lpno 1 capsule by mouth every weekergocalciferol (Vitamin D2) 1.25 MG (96660 UT) capsule Take 1 capsule by mouth 1 (one) time per week. 07/02/2023 ActiveStart: 04-09-2022 End: 92-79-5023Zyfgx: 68-75-4418pgsp 1250 ug by mouth every weekErgocalciferol (Vitamin D2) Active 1250 MCG PO every week April 09, 2022 12:00amStart: 54-59-5112tolx 1 capsule by mouth every weekErgocalciferol 1.25 MG (82276 UT) 1 capsule Orally Q week for 90 day(s) Feb, Activetake 1 capsule by mouth every weekVitamin D (Ergocalciferol) 1.25 MG (92573 UT) TAKE 1 CAPSULE BY MOUTH ONCE A WEEK for 84 ActiveErgocalciferol (Vitamin D2) 50,000 unit tablet (20 sources)Start: 11-13-2023 End: 04-85-7922Ldkmcfrpcosjps (Vitamin D2) 50,000 unit tablet Discontinued UNIT PO November 13, 2023 12:00am November 26, 2023 8:56amStart: 11-13-2023 End: 05-93-5976Vxhnoiowibszvp (Vitamin D2) 50,000 unit tablet Discontinued UNIT PO November 12, 2023 11:00pm November 26, 2023 7:56amescitalopram 10 mg oral tablet (20 sources)Serotonin Reuptake InhibitorStart: 11-13-2021 End: 07-92-0811Kztqvhapltiw Oxalate Discontinued MG TABLET November 13, 2021 12:00am November 13, 2021 1:15amStart: 09-29-2021 End: 10-48-2810nvjllqelboj 150 mg oral tablet (20 sources)Azole AntifungalStart: 09-11-2021 End: 14-89-9887Szelu: 09-11-2021 End: 53-28-4589awic 1 tablet by mouth onceFluconazole (Diflucan) 150 mg tablet Discontinued 150 MG PO Once September 11, 2021 1:00am October 01, 2021 12:14am Take this medication on 09/14/2021 if you are still having burning with urinationfurosemide 80 mg oral tablet (20 sources)Loop DiureticStart: 11-01-2024 End: 01-39-5566Cwnje: 10-19-2024 End: 28-86-0474ikuz 1 tablet by mouth once dailyfurosemide (Lasix) 40 mg tablet Indications: Congestive heart failure, unspecified HF chronicity, unspecified heart failure type (Multi) TAKE 1 TABLET BY MOUTH EVERY DAY 90 tablet 3 10/19/2024 06/29/2025 Discontinued (Dose adjustment)Start: 08-01-2024 End: 46-42-4362Qmrgl: 06-20-2023 End: 13-75-0445yaoj 1 tablet by mouth twice dailyFurosemide 40 mg Tablet Discontinued 40 MG PO BID@0800,1600 March 02, 2024 12:00am May 18, 2024 4:27pmStart: 38-90-8346Vmwwx Daily Start Date: 08/29/22 Status: Ordered Start: 11-17-2021 End: 47-48-0058Ncyuh: 11-17-2021 End: 26-56-6776zexy 1 tablet by mouth once daily in the morningFurosemide 40 mg tablet Discontinued 40 MG PO Every morning September 10, 2022 5:49pm March 02, 2024 1:55pmStart: 11-17-2021 End: 18-51-4857qmfj 2 tablets by mouth twice dailyFurosemide 40 mg tablet Discontinued 80 MG PO Twice daily May 18, 2024 6:09pm August 01, 2024 4:00amtake 1 tablet by mouth once dailyfurosemide (Lasix) 80 mg tablet Take 1 tablet (80 mg) by mouth once daily. Kuybmx58 hr guaiFENesin 600 mg extended release oral tablet (20 sources)Start: 08-29-2024 End: 26-81-0728Truec: 03-02-2024 End: 14-49-2086Rkzmv: 03-02-2024 End: 43-65-1339idsd 2 tablets by mouth twice daily, then take 1 tablet by mouth every twelve hoursGuaifenesin (Mucinex) 600 mg Tablet Extended Release 12hr Discontinued 1200 MG PO Twice daily 15 03March 02, 2024 12:00am April 09, 2024 2:40pmhomatropine methylbromide 0.3 mg/ml / HYDROcodone bitartrate 1 mg/ml oral solution (20 sources)Opioid Agonist, Cholinergic Muscarinic AgonistStart: 08-17-2024 End: 21-53-5909Qoajb: 08-17-2024 End: 28-84-5327Aadgerktgst-Homatropine (Hycodan) 5-1.5 mg/5 mL (5 mL) syrup Discontinued 5 ML PO Every 6 hours as needed for cough 200 3 August 17, 2024 August 28, 2024 9:01amInsulin Glargine (Lantus U-100 Insulin) 100 unit/mL solution (20 sources)Start: 11-26-2023 End: 30-50-2519adgsko 20 [IU] by subcutaneous injection at bedtimeInsulin Glargine (Lantus U-100 Insulin) 100 unit/mL solution Discontinued 20 UNIT SUBCUT Bedtime November 26, 2023 12:00am October 14, 2024 3:08pmStart: 11-26-2023 End: [id number] 20 [IU] by subcutaneous injection at bedtimeInsulin Glargine (Lantus U-100 Insulin) 100 unit/mL solution Discontinued 20 UNIT SUBCUT Bedtime November 25, 2023 11:00pm October 14, 2024 2:08pmStart: 11-26-2023 inject 20 [IU] by subcutaneous injection at bedtimeInsulin Glargine (Lantus U- 100 Insulin) 100 unit/mL solution Active 20 UNIT SUBCUT Bedtime November 25, 2023 11:00pmStart: 76-36-3298hfxwmt 20 [IU] by subcutaneous injection once daily Insulin Glargine (Lantus U-100 Insulin) 100 unit/mL solution Active 20 UNIT SUBCUT Daily November 11:00pmStart: 43-73-6447kfejen 15 [IU] by subcutaneous injection once dailyInsulin Glargine (Lantus U-100 Insulin) 100 unit/mL solution Active 15 UNIT SUBCUT Daily November 12:00amInsulin Lispro (Humalog U-100 Insulin) 100 unit/mL Solution (20 sources)Start: 05-29-2022 End: 35-07-6530Jtnwwwh Lispro (Humalog U-100 Insulin) 100 unit/mL Solution Discontinued 1 sliding scale dose SUBCUT Use as Directed May 28, 2022 11:00pm November 13, 2023 2:08pm 15 to 1Start: 05-29-2022 End: 94-38-7824Wqaulnq Lispro (Humalog U-100 Insulin) 100 unit/mL Solution Discontinued 1 sliding scale dose SUBCUT Use as Directed May 29, 2022 12:00am November 13, 2023 3:08pm 15 to 1Start: 52-46-7487Swxxffn Lispro (Humalog U-100 Insulin) 100 unit/mL Solution Active 1 sliding scale dose SUBCUT Use as Directed May 28, 2022 11:00pm 15 to 1Start: 34-91-5769Bsnowrr Lispro (Humalog U-100 Insulin) 100 unit/mL Solution Active 1 sliding scale dose SUBCUT Use as Directed May 29, 2022 12:00am 15 to 1Start: 61-83-9854Oljzvbg Lispro (Humalog U-100 Insulin) 100 unit/mL Solution Active 1 sliding scale dose SUBCUT Use as Directed May 29, 2022 12:00amStart: 57-40-6098Gnjrlbj Lispro (Humalog U-100 Insulin) 100 unit/mL Solution Active 1 sliding scale dose SUBCUT Use as Directed May 28, 2022 11:00pmInsulin Lispro (Humalog U-100 Insulin) 100 unit/mL solution (20 sources)Start: 11-13-2023 End: 87-40-3400Ovtfswm Lispro (Humalog U-100 Insulin) 100 unit/mL solution Discontinued 1 sliding scale dose SUBCUT Use as Directed November 13, 2023 2:01pm November 26, 2023 7:57amStart: 11-13-2023 End: 39-24-1358Hwunjnk Lispro (Humalog U-100 Insulin) 100 unit/mL solution Discontinued 1 sliding scale dose SUBCUT Use as Directed November 13, 2023 3:01pm November 26, 2023 8:57amStart: 55-04-0387Sacmgvk Lispro (Humalog U-100 Insulin) 100 unit/mL solution Active 1 sliding scale dose SUBCUT Use as Directed November 13, 2023 3:01pmiohexol (OMNIPaque) 350 mg iodine/mL solution 80 mL (1 source)Start: 06-02-2025 End: 64-98-126817 mL, intravenous, Once in imaging, Starting on Sat06/02/25 at 1137, For 1 doselisinopril 20 mg oral tablet (20 sources)Angiotensin Converting Enzyme InhibitorStart: 10-18-2024 End: 42-81-4672Sbgyn: 04-09-2024 End: 83-92-0209qymfdzrmdh 10 mg oral tablet (20 sources)Start: 02-13-2024 End: 07-08-1331Zeoys: 72-99-3046ljst 1 tablet by mouth every other dayLoratadine Active 0 .ROUTE .COMPLEX 45 February 13, 2024 9:03am TAKE 1 TABLET BY MOUTH EVERY OTHER DAYStart: 01-03-2023 End: 93-43-7542ovcnynojbc (Claritin) 10 mg tablet Take 1 tablet (10 mg) by mouth if needed. 06/21/2023 ActiveStart: 47-99-7743hiqpufem potassium 25 mg oral tablet (20 sources)Angiotensin 2 Receptor BlockerStart: 11-12-2022 End: 70-64-1616Pauea: 72-50-0431djwiziei Oral, Daily Start Date: 08/29/22 Status: OrderedStart: 09-11-2021 End: 67-54-4038Xapqr: 08-08-2021 End: 50-62-5411xtyf 1 tablet by mouth once dailyLosartan 25 mg tablet Discontinued 25 MG PO Daily September 11, 2021 1:00am June 03, 2022 3:07pm On Hold: Hold until follow-up with [employer] on 11/22/2223 hr metFORMIN hydrochloride 500 mg extended release oral tablet (20 sources)BiguanideStart: 09-11-2021 End: 11-93-4715Jxtwe: 09-11-2021 End: 89-64-1671xbsWVSQQC ER (GLUCOPHAGE XR) 500 mg 24 hr tablet Metformin Active 500 MG PO Twice daily September 11, 2021 10:23pm 0 09/11/2021 ActiveStart: 55-21-7323qzmj 1 mg by mouth once dailymetformin 500 mg ER Tab mg tab(s), Oral, Daily, Refills(s) 0 Start Date: 08/10/19 Status: Orderedtake 1 tablet by mouth every twelve hoursmetFORMIN HCl 1000 MG 1 tablet with a meal Orally TWICE A DAY ActiveComment on above:Metformin Active 500 MG PO Twice daily September 11, 2021 10:23pmNirmatrelvir-Ritonavir (20 sources)Start: 09-17-2024 End: 49-66-6410Ydqhk: 09-17-2024 End: 65-98-5586rxgp 1 tablet by mouth once dailyNirmatrelvir-Ritonavir (Paxlovid) 300 mg (150 mg x 2)-100 mg tablets,dose pack Discontinued 0 PO .CO MPLEX September 17, 2024 4:24pm October 30, 2024 8:17am 1tb (150/100) daily x 5 daysStart: 09-17-2024 End: 26-49-8957Vepzd: 09-17-2024 End: 22-63-4691wazx 1 tablet by mouth onceNirmatrelvir-Ritonavir (Paxlovid) 300 mg (150 mg x 2)-100 mg tablets,dose pack Discontinued 0 PO .COMPLEX September 17, 2024 1:00am September 17, 2024 4:24pm orally per package directions Nirmatrelvir-Ritonavir (Paxlovid) 300 mg (150 mg x 2)-100 mg tablets,dose pack (16 sources)Start: 09-17-2024 End: 96-98-2095xwaa 1 tablet by mouth once dailyNirmatrelvir-Ritonavir (Paxlovid) 300 mg (150 mg x 2)-100 mg tablets,dose pack Discontinued 0 PO .CO MPLEX September 17, 2024 4:24pm October 30, 2024 8:17am 1tb (150/100) daily x 5 daysStart: 86-78-6453fntp 1 tablet by mouth once dailyNirmatrelvir-Ritonavir (Paxlovid) 300 mg (150 mg x 2)-100 mg tablets,dose pack Active 0 PO .YCKWZPG96 September 17, 2024 3:24pm 1tb (150/100) daily x 5 daysStart: 09-17-2024 End: 74-77-8791lvmx 1 tablet by mouth onceNirmatrelvir-Ritonavir (Paxlovid) 300 mg (150 mg x 2)-100 mg tablets,dose pack Discontinued 0 PO .COMPLEX September 17, 2024 1:00am September 17, 2024 4:24pm orally per package directionsStart: 09-17-2024 End: 26-30-2285eidt 1 tablet by mouth onceNirmatrelvir-Ritonavir (Paxlovid) 300 mg (150 mg x 2)-100 mg tablets,dose pack Discontinued 0 PO .COMPLEX September 17, 2024 12:00am September 17, 2024 3:24pm orally per package directions oxyCODONE hydrochloride 5 mg oral tablet (20 sources)Opioid AgonistStart: 10-17-2023 End: 43-13-2764dtrrmwcqf chloride 10 meq extended release oral tablet (20 sources)Start: 11-17-2021 End: 39-70-7573tchc 1 capsule by mouth every twenty-four hoursPotassium Chloride ER 10 MEQ 1 capsule with food Orally Once a day ActivepredniSONE 20 mg oral tablet (20 sources)Start: 08-17-2024 End: 25-52-3978Njbkr: 03-02-2024 End: 47-47-1830EBBSCCVE INJECTION (20 sources)Start: 38-90-2632Butxn: 08-31-9675GRKNLZTY INJECTION Jan, 1000 mLStart: 14-45-0670Vxmmi: 31-16-8328TKTHTKAB INJECTION December, 1000 mL Start: 28-28-1931Bchsc: 66-00-9076JBBFRAJA INJECTION Nov, 1000 mLStart: 23-38-4017BOZRFZRE INJECTION Apr, 1000 unitsStart: 56-95-3526Glafd: 99-18-3254UCKYYPWQ INJECTION Apr, 1000 Uticagrelor 90 mg oral tablet (20 sources)Start: 04-09-2024 End: hr timolol 5 mg/ml ophthalmic solution (2 sources)beta-Adrenergic BlockerStart: 33-53-6673xlawzsq maleate (TIMOPTIC) 0.5 % ophthalmic solution Use 1 Drop in the left eye twice daily. 10 mL 0 10/01/2021 ActiveComment on above:Use 1 Drop in the left eye twice daily. torsemide 20 mg oral tablet (20 sources)Loop DiureticStart: 11-13-2021 End: 78-41-5328Wtkzd: 11-13-2021 End: 29-93-3569jiwp 60 mg by mouth once dailyTorsemide Discontinued 60 MG PO Daily November 13, 2021 12:00am November 18, 2021 11:22amtake 3 tablets by mouth every twenty-four hoursTorsemide 20 MG 3 TABLETS Orally Once a day for 90 day(s) Active Problems Active Problems Problem ClassificationProblemDateDocumented DateEpisodic/ChronicAcquired foot deformities (4 sources)Hallux valgus (acquired), left foot; Translations: [Hallux valgus (acquired)]58-83-3315XvmpeydJurcl and unspecified renal failure (20 sources)Renal failure syndrome; Translations: [Unspecified kidney failure] Onset: 622858-50-3975XavpuykQscjj and unspecified renal failure (20 sources)Injury of kidney; Translations: [Acute kidney failure, unspecified] 61-88-9092MmgkibghKxyvyhc disorders (20 sources)Generalized anxiety disorder; Translations: [Generalized anxiety disorder]ChronicCalculus of urinary tract (2 sources)Kidney esegl38-05-5311SuevpdnfFiuusdc kidney disease (20 sources)Chronic kidney disease stage 3B ; Translations: [Stage 3b chronic kidney disease]Onset: 081903-39-0888MqlvtpdSnoxeev on above: Chronic kidney disease (20 sources)Chronic kidney disease; Translations: [Chronic kidney disease, stage III (moderate)]Onset: 10-25-2021 Resolved: 46-81-7337Omxchsi obstructive pulmonary disease and bronchiectasis (20 sources)Mucopurulent chronic bronchitis; Translations: [Mucopurulent chronic bronchitis]45-45-5007CyfdyabDvmlklr on above:Age started 17, 1ppd, quit 04/2024 Complication of device; implant or graft (20 sources)Arteriovenous fistula occlusion; Translations: [Other specified complication of vascular prostheticdevices, implants and grafts, initial encounter]Onset: 84-85-0606KygnyurLbegrezlwm heart failure; nonhypertensive (20 sources)Congestive heart failure; Translations: [Congestive heart failure, unspecified]Onset: 703051-88-1340HmukyezZxmhjvdw atherosclerosis and other heart disease (20 sources)Coronary arteriosclerosis; Translations: [Coronary atherosclerosis of unspecified type of vessel, [place] or graft]Onset: 804296-99-0330 ChronicComment on above:Echo: LVEF 60%, LVH, normal RV function but enlarged, RVSP elevated, severe MR - 08/2024Echo: LVEF 60%, LVH, normal RV function but enlarged, RVSP elevated, severe MR - 08/2024,LHC x 5,PCI/stent prox LAD x 3 - October 2022- residual disease in LCx and RCA not able to treat surgically,PCI/st ent RCA x 2 - January 2023,No intervention - 4Deficiency and other anemia (20 sources)Anemia of renal disease; Translations: [Anemia in chronic kidney disease]74-36-5184FftizhnQlrlvdlhuy and other anemia (16 sources)Anemia in chronic kidney disease; Translations: [Anemia in chronic kidney disease]Onset: 11-08-2021 Resolved: 44-49-3070ShppcziMskquntugb and other anemia (20 sources)Anemia; Translations: [Anemia in chronic kidney disease]Chronic Deficiency and other anemia (20 sources)Anemia, unspecified; Translations: [Anemia, unspecified]08-13-2022 EpisodicDiabetes mellitus with complications (20 sources)Renal disorder due to type 1 diabetes mellitus; Translations: [Type 1 diabetes mellitus with diabetic nephropathy]Onset: 09-08-2021 Resolved: 52-00-5058IcchbagSkqhbtbe mellitus without complication (20 sources)Diabetes mellitus; Translations: [Diabetes mellitus without mention of complication, type II or unspecified type, not stated as uncontrolled]Onset: 437409-85-8001QmzzmfdQyxrbvaq mellitus without complication (12 sources)Glycosuria; Translations: [Glycosuria]Onset: 82-93-7353Koomsqff Disorders of lipid metabolism (20 sources)Hyperlipidemia; Translations: [Other and unspecified hyperlipidemia] Onset: 252339-44-8704ToajalmIgqcttaduy disorders (17 sources)Gastroesophageal reflux disease; Translations: [Gastro-esophageal reflux disease without esophagitis]39-06-7400LfwojzbKqjojtpynf disorders (2 sources)Esophageal disorders; Translations: [Gastro-esophageal reflux disease with esophagitis, without bleeding]Essential hypertension (20 sources)Benign essential hypertension; Translations: [Benign essential hypertension]Onset: 567197-44-8079HgvbgumCgxjmgxwlceyr symptoms and ill- defined conditions (20 sources)Proteinuria, unspecified; Translations: [Proteinuria]Onset: 11-08-2021 Resolved: 99-96-8721BmwqcbviPkwcumlt (20 sources)Raised intraocular pressure; Translations: [Ocular hypertension, unspecified eye]Onset: 661565-78-0237KmvwfxlEoklbijz; including migraine (2 sources)Cluster -96-4097YledrfuUgyaqwxp; including migraine (20 sources)Headache; Translations: [Headache]81-54-0587WclzyfloYpyfyreg; including migraine (1 source)Headache; including migraine; Translations: [Headache, unspecified] Onset: 79-59-8771Oihkc valve disorders (20 sources)Mitral valve regurgitation; Translations: [Nonrheumatic mitral (valve) insufficiency]Onset: 11-24-2024 Resolved: 130024-43-5037MxgdgyzOyphzrw on above:Echo: LVEF 60%, LVH, normal RV function but enlarged, RVSP elevated, severe MR - 08/2024,Hypertension with complications and secondary hypertension (20 sources)Chronic kidney disease due to hypertension; Translations: [Hypertensive chronic kidney disease withstage 1 through stage 4 chronic kidney disease, or unspecified chronic kidney disease]Onset: 10-25-2021 Resolved: 46-01-4529IpjcgmnNrqhsrsc disorders (20 sources)Polyclonal hypergammaglobulinemia; 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]ChronicMood disorders (20 sources)Depressive disorder; Translations: [Recurrent major depressive episodes, mild ]Onset: 949941-35-7702GshlsorDgbkjoq (20 sources)Renal tract candidiasis; Translations: [Other urogenital candidiasis]14-94-5316FzhbnxqrHupzac and vomiting (20 sources)Nausea and vomiting; Translations: [Nausea with vomiting, unspecified]05-91-6010KsnkyaypAmpyxagxd of unspecified nature or uncertain behavior (20 sources)Monoclonal gammopathy of uncertain significance; Translations: [Monoclonal gammopathy]Onset: 836032-37-5087IgzwfvwWfmwguhcx; nephrosis; renal sclerosis (20 sources)Nephrotic syndrome; Translations: [Nephrotic syndrome with unspecified morphologic changes]Onset: 11-08-2021 Resolved: 59-47-8093ZkvxihyYftabojpvwb chest pain (20 sources)Chest pain; Translations: [Chest pain, unspecified]Onset: 05-31-2025 44-13-9800UhlxjouhSmahvaoxfckscj (2 sources)Flwomjbny73-44-8574XenkdjyVwxai aftercare (5 sources)Encounter for palliative care; Translations: [Encounter for palliative care]51-72-3183AmxpdrcbNxfzt aftercare (2 sources)Encounter for therapeutic drug level monitoring; Translations: [Encounter for therapeutic drug level monitoring]Onset: 84-36-8896JteuxopkXjoyv aftercare (4 sources)circus hand (current) use of insulin; Translations: [circus hand (current) use of insulin]Onset: 41-39-9923NhtcyuvdWjbng and ill-defined heart disease (2 sources)Heart jstkdae30-20-7017SbqxgvpGjflg circulatory disease (20 sources)Acquired arteriovenous fistula aneurysm; Translations: [Arteriovenous fistula, acquired]ChronicOther circulatory disease (20 sources)Arteriovenous fistula, acquired; Translations: [Arteriovenous fistula, acquired]ChronicOther circulatory disease (20 sources)Arteriovenous fistula; Translations: [Arteriovenous fistula, acquired]90-93-3861AitodxzNsilv circulatory disease (20 sources)H/O: heart disorder; Translations: [Personal history of other diseases of the circulatory system]41-45-9314WmfijtjwChxla circulatory disease (2 sources)Other specified symptoms and signs involving the circulatory and respiratory systems; Translations:[Other specified symptoms and signs involving the circulatory and respiratory systems]Onset: 35-49-4478BvkomyfqRthbq connective tissue disease (20 sources)Muscle pain; Translations: [Myalgia, unspecified site]09-19-2021 EpisodicOther diseases of kidney and ureters (20 sources)Secondary hyperparathyroidism; Translations: [Secondary hyperparathyroidism of renal origin]54-69-5509OcihtxiKlqro diseases of kidney and ureters (20 sources)Secondary hyperparathyroidism of renal origin; Translations: [Secondary hyperparathyroidism (of renal origin)]Onset: 11-08-2021 Resolved: 86-38-2128PeifcioMypnf diseases of veins and lymphatics (20 sources)Peripheral venous insufficiency; Translations: [Venous insufficiency (chronic) (peripheral)]83-48-1012LludlpvgGvbfu endocrine disorders (20 sources)Hypoglycemia; Translations: [Hypoglycemia, unspecified]07-09-2022 ChronicOther endocrine disorders (6 sources)Hypoglycemia, unspecified; Translations: [Hypoglycemia, unspecified] Onset: 650604-96-8191LccdxknZkfgz eye disorders (20 sources)Hemorrhage of left vitreous body; Translations: [Vitreous hemorrhage, left eye]31-62-3442FqbkyfmXzcxv gastrointestinal disorders (2 sources)Pneumatosis cystoides intestinalis; Translations: [Other specified disorders of intestine]EpisodicOther gastrointestinal disorders (20 sources)Constipation; Translations: [Constipation, unspecified]10-19-2023 EpisodicOther hematologic conditions (20 sources)Raised cardiac enzyme or marker; Translations: [Other specified abnormalities of plasma proteins]01-73-3679HjaxlftpCotli injuries and conditions due to external causes (20 sources)Hypothermia; Translations: [Hypothermia, initial encounter] 23-12-5840HbiqbiwcPpdwy injuries and conditions due to external causes (11 sources)Contusion; Translations: [Other injury of unspecified body region, initial encounter]97-13-4411KomvrggsPxdpj lower respiratory disease (3 sources)Pulmonary edema; Translations: [Chronic pulmonary edema]08-28-2024 ChronicOther lower respiratory disease (9 sources)Chronic pulmonary edema; Translations: [Pulmonary congestion and hypostasis]78-21-7603ZznwkbyXvpln lower respiratory disease (20 sources)Cough; Translations: [Cough]11-66-6269MatgaxgvIvpag lower respiratory disease (20 sources)Hypoxemia; Translations: [Hypoxemia]04-06-9013YswhytbwIpcmi lower respiratory disease (4 sources)Hypoxemia; Translations: [Hypoxemia]26-42-5522PrbqaovwBizgw lower respiratory disease (20 sources)Hemoptysis; Translations: [Hemoptysis]04-86-8179IdwzygvsGtjri lower respiratory disease (2 sources)Dyspnea; Translations: [Dyspnea, unspecified]87-42-5833TgpepvyiRnifd male genital disorders (20 sources)Induratio penis plastica; Translations: [Induration penis plastica] Onset: 91-16-5674HoyzvcxQaxyt male genital disorders (3 sources)Male erectile dysfunction, unspecified; Translations: [Erectile dysfunction]Onset: 74-30-4404TjtjynaUgjrj male genital disorders (2 sources)Vasculopathic erectile jdfhqyorhve34-91-4019FrssnrqSxpyj male genital disorders (5 sources)Impotence of organic origin; Translations: [Male erectile dysfunction, unspecified]ChronicOther male genital disorders (20 sources)Erectile dysfunction co-occurrent and due to arterial insufficiency; Translations: [Erectile dysfunction due to arterial insufficiency]11-13-2023 ChronicOther male genital disorders (1 source)Induration penis plasticaChronicOther male genital disorders (20 sources)Pain in scrotum ; Translations: [Scrotal pain]71-27-9171Ychqqoaf Other male genital disorders (5 sources)Hemospermia; Translations: [Hematospermia]EpisodicOther nervous system disorders (1 source)Chronic pain syndrome; Translations: [Chronic pain syndrome]10-17-2023 ChronicOther nervous system disorders (1 source)Chronic pain syndrome; Translations: [Chronic pain syndrome]10-17-2023 ChronicOther nervous system disorders (20 sources)Metabolic encephalopathy; Translations: [Metabolic encephalopathy] 39-91-6041XsxkijoRdwkg nervous system disorders (3 sources)Metabolic encephalopathy; Translations: [Metabolic encephalopathy] 59-43-8007MssrgpfYzhna nervous system disorders (20 sources)Disorder of brain; Translations: [Encephalopathy, unspecified] 57-50-1458DfupcvoSrbws nervous system disorders (2 sources)Encephalopathy, unspecified; Translations: [Encephalopathy, unspecified]56-02-0153EojvtlpAbiex non-traumatic joint disorders (2 sources)Derangement of left shoulder joint; Translations: [Other specific joint derangements of left shoulder, not elsewhere classified]12-37-4838Wrzkjlg Other non-traumatic joint disorders (2 sources)Pain in left shoulder; Translations: [Pain in joint, shoulder region] 18-05-7376PfokzramTscap non-traumatic joint disorders (2 sources)Disorder of shoulder; Translations: [Other specified joint disorders, left shoulder]30-81-9087TnvntqkiSfgay non-traumatic joint disorders (20 sources)Pain in right shoulder; Translations: [Right shoulder pain] 65-48-1871FawhajbwKxvir nutritional; endocrine; and metabolic disorders (20 sources)Ketosis; Translations: [Other specified metabolic disorders] 00-82-1571BtwsoegQppkg nutritional; endocrine; and metabolic disorders (12 sources)H/O: diabetes mellitus; Translations: [Personal history of other endocrine, nutritional and metabolic disease]06-83-0611HlnmrfuoVzunq upper respiratory infections (5 sources)Acute maxillary sinusitis; Translations: [Acute maxillary sinusitis, unspecified]EpisodicPeripheral and visceral atherosclerosis (2 sources)Peripheral vascular disease, unspecified; Translations: [Peripheral vascular disease, unspecified]Onset: 80-96-7488AbtiijmCfntxrqh codes; unclassified (20 sources)Edema, generalized; Translations: [Generalized edema]Onset: 870059-35-1649UfuzwuxcQgolcnkh codes; unclassified (20 sources)Peripheral edema; Translations: [Edema, unspecified]10-14-2021 EpisodicResidual codes; unclassified (20 sources)Left against medical advice; Translations: [Procedure and treatment not carried out because of patient's decision for other reasons]06-03-2022 EpisodicResidual codes; unclassified (20 sources)Body mass index 20-24 - normal; Translations: [Body Mass Index between 19-24, adult]Onset: 896096-35-5155GpoiitmsLyteqacn codes; unclassified (1 source)Decreased libidoEpisodicResidual codes; unclassified (20 sources)Failed liupbnydj50-62-6462LkphctmcQtqwahff codes; unclassified (20 sources)Insomnia; Translations: [Insomnia, unspecified]57-05-5507Ngovxglu Residual codes; unclassified (7 sources)Insomnia, unspecified; Translations: [Insomnia, unspecified] 08-55-1006PfdautywTdjduwaj codes; unclassified (6 sources)Administration of medication contraindicated; Translations: [Procedure and treatment not carried out because of other contraindication] Onset: 274734-23-0555YyplhtbpDrstbkxs codes; unclassified (2 sources)Body mass index (BMI) 24.0-24.9, adult; Translations: [Body mass index (BMI) 24.0-24.9, adult]Onset: 32-18-5654PshsvzqaAcuiflln codes; unclassified (2 sources)Other problems related to lifestyle; Translations: [Other problems related to lifestyle]Onset: 45-94-6786AdapoijkItreugep codes; unclassified (2 sources)Body mass index (BMI) 23.0-23.9, adult; Translations: [Body mass index (BMI) 23.0-23.9, adult]Onset: 82-18-0137DnxuluhgMhbvgqnp codes; unclassified (2 sources)Procedure and treatment not carried out because of other contraindication; Translations: [Procedureand treatment not carried out because of other contraindication]Onset: 52-44-7742LyjnuylqRruiwvcu codes; unclassified (2 sources)Lye-osmkbipx-qbbpqh electronic cigarette user; Translations: [Other problems related to lifestyle]Onset: 972023-22-9900KxfjjwksYoaaouhsrqr failure; insufficiency; arrest (adult) (20 sources)Acute respiratory failure; Translations: [Acute respiratory failure with hypoxia]67-89-9542DbkyflsePexpcqady and history of mental health and substance abuse codes (8 sources)Personal history of other mental and behavioral disorders; Translations: [Personal history of nicotine dependence]Onset: 78-74-4774Xppxrquy Substance-related disorders (20 sources)Smokes tobacco daily; Translations: [Tobacco use disorder]Onset: 08-20-2023 Resolved: 85-92-3133CrqwwooUveiutj on above:3 cigs daily;1-2 Packs of cigarettes daily;1 Pack of cigarettes daily;Superficial injury; contusion (10 sources)Contusion of right lower leg, initial encounter; Translations: [Contusion of right lower extremity]98-88-4391MnvapzliSoaitum (20 sources)Syncope; Translations: [Syncope and collapse]28-83-5954Tvwaumfe Unclassified (2 sources)Asymptomatic microscopic spqzvteur97-50-4140Oppiqjvtqzoy (14 sources)FU PRNUnclassified (5 sources)You have been scheduled for a follow up appointment for the following date and time, please call to reschedule if needed.Unclassified (2 sources)New Patient Visit; Translations: [New Patient Visit]Onset: 06-02-2025 Viral infection (20 sources)Disease caused by 2019-nCoV; Translations: [COVID-19]02-01-2022 EpisodicViral infection (6 sources)Disease caused by 2019-nCoV; Translations: [COVID-19]Onset: 09-16-2024 Past or Other Problems Problem ClassificationProblemDateDocumented DateEpisodic/ChronicAcute bronchitis (20 sources)Acute bronchitis; Translations: [Acute bronchitis, unspecified] Onset: 316696-41-9683OxyleockDzzcw myocardial infarction (20 sources)Myocardial infarction; Translations: [Subendocardial infarction, initial episode of care]Onset: 08-20-2023 Resolved: 381780-03-9961EeqhqhfLuebuqnzf infection; unspecified site (1 source)Other specified bacterial agents as the cause of diseases classified elsewhere; Translations: [Other specified bacterial agents as the cause of diseases classified elsewhere]Onset: 02-99-0658JzkvndsrEmjgbdrk atherosclerosis and other heart disease (10 sources)Presence of coronary angioplasty implant and graft; Translations: [Percutaneous transluminal coronary angioplasty status]Onset: 08-20-2023 31-12-0107NwaietqqWrvsxncbnt and other anemia (20 sources)Anemia; Translations: [Anemia, unspecified]Onset: 08-20-2023 15-96-0433ZnedwzflKijux and electrolyte disorders (20 sources)Absolute hypovolemia; Translations: [Hypovolemia]Onset: 11-01-2024 31-70-5999WbfbbcelWyftdkd and fatigue (20 sources)Asthenia; Translations: [Weakness]Onset: EpisodicMood disorders (4 sources)Mood disordersOnset: Other circulatory disease (10 sources)History of cardiomyopathy; Translations: [Other postprocedural status] Resolved: 77-68-0754DdicjmopZywfi circulatory disease (4 sources)H/O: angina pectoris; Translations: [Personal history of other diseases of circulatory system] Resolved: 99-17-1742UpnrpajyTjlsw diseases of kidney and ureters (12 sources)Renal impairment; Translations: [Unspecified disorder of kidney and ureter]Onset: 08-20-2023 Resolved: 052399-26-9670CjzjchpgPpydd gastrointestinal disorders (8 sources)Constipation, unspecified; Translations: [Constipation, unspecified] Onset: 807115-30-6572CuwpheboYwdmz injuries and conditions due to external causes (6 sources)Hypothermia, initial encounter; Translations: [Hypothermia]Onset: 870304-25-1511JpmfyezlEyzld lower respiratory disease (10 sources)Hemoptysis; Translations: [Other hemoptysis]Onset: 08-28-2024 38-82-9498PqgfqypwDvgbc lower respiratory disease (1 source)Shortness of breath; Translations: [Shortness of breath]Onset: 77-35-6371OomskkfcKhgid nervous system disorders (1 source)Personal history of other diseases of the nervous system and sense organs; Translations: [History of retinal detachment]Onset: 50-46-6077Gyxqonsy Other screening for suspected conditions (not mental disorders or infectious disease) (20 sources)Patient encounter status; Translations: [Encounter for screening for other disorder]Onset: 42-64-9541ZgyirakoNteutgtdo (except that caused by tuberculosis or sexually transmitted disease) (20 sources)Infective pneumonia; Translations: [Pneumonia, unspecified organism] Onset: 993502-83-7415XlumrqkyXcbtauri codes; unclassified (3 sources)Generalized edema; Translations: [GENERALIZED EDEMA]Onset: 10-25-2021 EpisodicResidual codes; unclassified (9 sources)Nicotine-filled electronic cigarette user; Translations: [Tobacco use]Onset: 277268-80-1258IlilddhhFqooquys codes; unclassified (2 sources)Tobacco use; Translations: [Tobacco use]Onset: 92-60-3137Uyrwhsft Spondylosis; intervertebral disc disorders; other back problems (5 sources)Low back pain; Translations: [Low back pain, unspecified]Onset: 64-87-8201TwtbbukcOvkhdhtzcvkq (7 sources)Onset: 11-24-2024 Resolved: Results Test NameValueInterpretationReference RangeFacilityCT Neck+Chest+Abdomen+Pelvis W contrast Daphney . Extensive atherosclerotic changes involving the thoracoabdominal aorta and its branches. Combination of calcified and noncalcified plaque results in pivexycs-pe-voscpt stenosis of the left common iliac artery. Yhxb-ik-tdijhebh stenosis of the right common iliac artery. The external iliac and femoral vasculature is widely patent. 2. Mild cardiomegaly with left atrial enlargement, as well as pulmonary edema in keeping with known mitral valve regurgitation. 3. Dilated main pulmonary artery measuring 3.4 cm, suggestive of secondary pulmonary arterial hypertension. 4. Dyhuzfaz-wx-lnpmjl coronary artery calcifications, with postprocedural changes of [...] analyzed and images interpreted at [facility], [place], [place]. MACRO: None Signed by: Eugene Santoyo 06/02/2025 2:23 PM Dictation workstation: [id number] MMODALInterpreted By: Euegne Santoyo and Beyersdorf Conner STUDY: CT TAVR FULL CONTRAST CHEST ABDOMEN PELVIS; 06/02/2025 11:45 am INDICATION: Signs/Symptoms:mitral regurgitation. ,I34.0 Nonrheumatic mitral (valve) insufficiency COMPARISON: None. ACCESSION NUMBER(S): [id number] ORDERING CLINICIAN: CHAITANYA SAAVEDRA TECHNIQUE: Multi-detector CT [...] Mild aortic valvular calcifications. Normal coronary artery origins.Wlluxkho-ib-atohnc coronary artery calcifications. Multiple coronary stents are [...] the left common iliac artery results in hfdvmppb-ji-wfktgu stenosis. Duvv-mq-gbjtsnne stenosis of the right common iliac artery. The external iliac arteries are widely patent. Mild atherosclerotic disease of the bilateral femoral vasculature. There is zhjf-rr-ofkdkllp right common femoral artery narrowing.. ABDOMEN AND [...] and appears normal. (more content not included)... MMODALRadiology Study observation (narrative)[facility] Work Phone: CT Neck+Chest+Abdomen+Pelvis W contrast IVOrdered By: Guy Santoyo on 90-14-9887EhrfrupszzSuburban [facility] Work Phone: ct TAVR FULL CONTRAST CHEST ABDOMEN PELVISon 29-49-8119AU TAVR FULL CONTRAST CHEST ABDOMEN PELVISInterpreted By: Eugene Santoyo and Beyersdorf Conner STUDY: CT TAVR FULL CONTRAST CHEST ABDOMEN PELVIS; 06/02/2025 11:45 am INDICATION: Signs/Symptoms:mitral regurgitation. ,I34.0 Nonrheumatic mitral (valve) insufficiency COMPARISON: None. ACCESSION NUMBER(S): [id number] ORDERING CLINICIAN: CHAITANYA SAAVEDRA TECHNIQUE: Multi-detector CT [...] Mild aortic valvular calcifications. Normal coronary artery origins.Rqvbpcqv-wy-dnueaq coronary artery calcifications. Multiple coronary stents are [...] the left common iliac artery results in sqoqexyy-oi-ohhgvm stenosis. Ayyf-qp-ljslnogy stenosis of the right common iliac artery. The external iliac arteries are widely patent. Mild atherosclerotic disease of the bilateral femoral vasculature. There is gbah-ka-xucukite right common femoral artery narrowing.. ABDOMEN AND [...] wall thickening or dil (more content not included)...[facility] HospitalBasic Metabolic Panelon 69-17-2630Jrqbjqeqwu Clr Calc Melzcrds78.03NoSampson Regional Medical Center Physician Sing[facility] River GulfportComment on above: Performed By: #### BMP, CBC, MG, PHOS ####[address] [address] USAGFR/1.73 sq M.predicted MDRD (S/P/Bld) [Vol rate/Area]11.297 mL/min/{1.73_m2}NormalThe [facility] Physician [facility] River GulfportComment on above:Performed By: #### BMP, CBC, MG, PHOS ####[address] [place] [address] USABasophils [#/volume] in Blood by Automated countOrdered By: Adrian Noland on 30-10-5114Wysctpesh (Bld) [#/Vol] 0.1 10*3/uLNormal0.0-0.2FMansfield HospitalComment on above:Result Comment: PERFORMED BY:[address] [place], [place] [phone] MEDICAL YECENIA METCALF M.D.Performed By: #### BMP, CBC, MG, PHOS ####[address] [address] USABasophils/100 leukocytes in Blood by Automated count Ordered By: Adrian Noland on 89-79-2835Ifmcoknwh/100 WBC (Bld)1.8 %Normal. Corey HospitalComment on above:Performed By: #### BMP, CBC, MG, PHOS ####[address] [address] USACalcium [Mass/volume] in Serum or PlasmaOrdered By: Adrian ZamanPriyank on 01-36-7731Hfnhklm [Mass/Vol]9.1 mg/dLNormal8.6-10.3FMansfield HospitalComment on above:Performed By: #### BMP, CBC, MG, PHOS ####[address] [address] [facility] HEALTH CENTERCapillary blood glucose measurement by glucometer (mass/volume)Ordered By: Adrian Noland on 77-95-0492Hanvlfj [Mass/Vol]128 mg/dLNoMagruder Memorial Hospital Comment on above:Result Comment: Random Glucose Reference Range is dependent on time and content of last meal. Glucose of more than 200 mg/dL in a nonstressed, ambulatory subject supports the diagnosis of Diabetes Mellitus.PERFORMED BY:[address] [place], [place] [phone] MEDICAL DIRECTORYAMINI METCALF M.D.Performed By: #### GLULS ####Point of Care testing,Carbon dioxide, total [Moles/volume] in Serum or PlasmaOrdered By: Baltazarjohnny Noland on 24-01-3313RA6 [Moles/Vol]29.3 mmol/CTeuhgw39.0-31.0Corey HospitalComment on above:Performed By: #### BMP, CBC, MG, PHOS ####[address] USAChloride [Moles/volume] in Serum or PlasmaOrdered By: Adrian Noland on 23-91-6373Bbpaimtr [Moles/Vol]96 mmol/XJls86-745XcczrfygtCorey HospitalComment on above:Performed By: #### BMP, CBC, MG, PHOS ####[address] [facility] Complete Blood Count Auto Diffon 86-68-9693Drni Corpuscular HGB Conc32.8 g/dL Jblrfm08.5-35.6The [facility]cu Health Physician GroupComment on above:Performed By: #### BMP, CBC, MG, PHOS ####[place] [address] USANRBC%0.1 /100{WBC}Normal0-0.5The [facility]cu Health Physician GroupComment on above:Performed By: #### BMP, CBC, MG, PHOS ####[place] [address] USAWhite Blood Count3.6 [CFU]/mLLow 4.1-10.5The [facility]cu Health Physician GroupComment on above:Performed By: #### BMP, CBC, MG, PHOS ####[place] [address] USACreatinine [Mass/volume] in Serum or PlasmaOrdered By: Baltazaran El-Aladavid on 23-71-3359Ubaksdnbod [Mass/Vol]6.03 mg/dLHigh0.70-1.30Corey HospitalComment on above:Performed By: #### BMP, CBC, MG, PHOS ####[place] [address] [place] Eosinophils [#/volume] in Blood by Automated countOrdered By: Adrian Zaman-Aladavid on 26-95-4522Nuhghcxxhii (Bld) [#/Vol]0.2 10*3/uLNormal0.0-0.45Corey HospitalCommunson healthcare manistee hospital on above:Performed By: #### BMP, CBC, MG, PHOS ####[place] [address] [place] Eosinophils/100 leukocytes in Blood by Automated countOrdered By: Baltazaran Austyn-Alali on 34-00-5289Jjagmkwihwo/100 WBC (Bld)4.3 %Normal.Corey HospitalComment on above:Performed By: #### BMP, CBC, MG, PHOS ####[place] [address] USAErythrocyte distribution width [Ratio] by Automated countOrdered By: Adrian Zaman-Aladavid on 07-91-8646Nspidwemfxb distribution width (RBC) [Ratio]17.1 %High12.0-14.8 Corey HospitalComment on above:Performed By: #### BMP, CBC, MG, PHOS ####[facility] Reyes StreetErythrocytes [#/volume] in Blood by Automated countOrdered By: Adrian Noland on 16-74-7985IRC (Bld) [#/Vol]4.38 10*6/uLNormal3.90-5.60Corey HospitalComment on above:Performed By: #### BMP, CBC, MG, PHOS ####[address] [place] [id number] [facility] Glomerular filtration rate [Volume Rate/Area] in Serum, Plasma or Blood by CreatinineOrdered By: Adrian Noland on 87-24-3629Azwcaribxt filtration rate [Volume Rate/Area] in Serum, Plasma or Blood by Qsmtsocqyy60.297 mL/MinCorey HospitalGlucose [Mass/volume] in Serum or PlasmaOrdered By: Adrian Noland on 37-45-4682Kttvqmy [Mass/Vol]124 mg/rMAmgd39-973VayczhsnwCorey HospitalComment on above:Result Comment: Random Glucose Reference Range is dependent on time and content of last meal. Glucose of more than 200 mg/dL in a nonstressed, ambulatory subject supports the diagnosis of Diabetes Mellitus. ADA recommended reference rangePerformed By: #### BMP, CBC, MG, PHOS ####[id number] [facility] Hematocrit [Volume Fraction] of Blood by Automated countOrdered By: Adrian Yancey on 12-04-8215Bztyivlgia (Bld) [Volume fraction]37.9 %Low38.8-50.0Corey HospitalComment on above:Performed By: #### BMP, CBC, MG, PHOS ####[address] [place] [id number] [facility] Hemoglobin [Mass/volume] in BloodOrdered By: Adrian Noland on 06-01-2025 Hemoglobin (Bld) [Mass/Vol]12.4 g/dLLow13.0-17.0Corey HospitalComment on above:Performed By: #### BMP, CBC, MG, PHOS ####[address] USALeukocytes [#/volume] corrected for nucleated erythrocytes in Blood by Automated counOrdered By: Adrian Noland on 73-58-3877SUT corrected for nucl RBC Auto (Bld) [#/Vol]3.6 10*3/uLLow4.1-10.5FMansfield HospitalLeukocytes [#/volume] in Blood by Automated countOrdered By: Adrian Noland on 39-25-7630GWU (Bld) [#/Vol]3.6 10*3/uLLow4.1-10.5FMansfield HospitalComment on above: Performed By: #### BMP, CBC, MG, PHOS ####[place] [address] USALymphocytes [#/volume] in Blood by Automated countOrdered By: Adrian Noland on 84-92-8634Viorxcommiy (Bld) [#/Vol]0.5 10*3/uLLow1.00-4.8Corey HospitalComment on above:Performed By: #### BMP, CBC, MG, PHOS ####[id number] USALymphocytes/100 leukocytes in Blood by Automated countOrdered By: Adrian Noland on 67-59-6420Cfcmocwoaef/100 WBC (Bld)14.4 % Normal.Corey HospitalComment on above:Performed By: #### BMP, CBC, MG, PHOS ####[address] USAMCH [Entitic mass] by Automated countOrdered By: Adrian Noland on 65-46-7892EKM (RBC) [Entitic mass]28.4 keLymruw47.5-35.2FMansfield HospitalComment on above:Performed By: #### BMP, CBC, MG, PHOS ####[address] [place] [address] [facility] Auto (RBC) [Mass/Vol]Ordered By: Adrian Noland on 15-43-7146PQNC (RBC) [Mass/Vol]32.8 g/dL32.5-35.6FMansfield HospitalMCV [Entitic volume] by Automated countOrdered By: Adrian Noland on 02-33-4388CZB (RBC) [Entitic vol]86.5 bRDkkfru82.5-101Corey HospitalComment on above:Performed By: #### BMP, CBC, MG, PHOS ####[address] [address] USAMagnesium [Mass/volume] in Serum or PlasmaOrdered By: Adrian Noland on 06-98-5679Vyqosmbzc [Mass/Vol]2.3 mg/dL Normal1.9-2.7FMansfield HospitalComment on above:Result Comment: PERFORMED BY:[address] [place], [place] [phone] MEDICAL DIRECTORYAMINI METCALF M.D.Performed By: #### BMP, CBC, MG, PHOS ####[address] [address] USAMonocytes [#/volume] in Blood by Automated count Ordered By: Adrian Noland on 05-89-9841Viiviksyr (Bld) [#/Vol]0.2 10*3/uLNormal 0.0-0.8Corey HospitalComment on above:Performed By: #### BMP, CBC, MG, PHOS ####[address] [address] USAMonocytes/100 leukocytes in Blood by Automated countOrdered By: Adrian Noland on 63-67-8022Qjmmenavh/100 WBC (Bld)6.4 %Normal.Corey HospitalComment on above:Performed By: #### BMP, CBC, MG, PHOS ####[address] Neutrophils [#/volume] in Blood by Automated countOrdered By: Adrian Noland on 78-86-0708Dpahqzrgtra (Bld) [#/Vol]2.6 10*3/uLNormal1.8-7.7FMansfield HospitalComment on above:Performed By: #### BMP, CBC, MG, PHOS ####[place] [address] [place] Neutrophils/100 leukocytes in Blood by Automated countOrdered By: Adrian Noland on 39-78-4796Oolevauvtas/100 WBC (Bld)73.1 %Normal.Corey HospitalComment on above:Performed By: #### BMP, CBC, MG, PHOS ####[address]No Panel Information Ordered By: Adrian Noland on 86-09-446859.03[facility] Nucleated erythrocytes [Presence] in Blood by Automated countOrdered By: Adrian Noland on 91-69-7399Uysobadln RBC Auto Ql (Bld)0.1 /100{WBC}0-0.5FMansfield HospitalPhosphate [Mass/volume] in Serum or PlasmaOrdered By: Adrian Noland on 13-16-1347Jtnigneio [Mass/Vol]5.9 mg/dLHigh2.5-4.5FMansfield HospitalComment on above:Performed By: #### BMP, CBC, MG, PHOS ####[address] Platelet mean volume [Entitic volume] in Blood by Automated countOrdered By: Adrian Noland on 85-75-6899Ddmakeai mean volume (Bld) [Entitic vol]8.0 fLNormal 6.6-10.1FMansfield HospitalComment on above:Performed By: #### BMP, CBC, MG, PHOS ####[place] [address] USAPlatelets [#/volume] in Blood by Automated countOrdered By: Adrian Noland on 34-57-8897Cwaxjqihs (Bld) [#/Vol]103 10*3/jIUjv795-387MxmrxmoppCorey HospitalComment on above:Performed By: #### BMP, CBC, MG, PHOS ####[address] [address] [place] Potassium [Moles/volume] in Serum or PlasmaOrdered By: Adrian Noland on 11-30-8607Tnsomfmaq [Moles/Vol]4.3 mmol/LNormal3.5-5.1FMansfield HospitalComment on above:Performed By: #### BMP, CBC, MG, PHOS ####[address] USASerum or plasma anion gap determinationOrdered By: Adrian Noland on 53-85-2387Pfnxq gap [Moles/Vol] 15.0 mmol/LNormal6.0-15.0Corey HospitalComment on above: Performed By: #### BMP, CBC, MG, PHOS ####[address] [address] USASodium [Moles/volume] in Serum or Plasma Ordered By: Adrian Noland on 82-62-2787Gnpjbj [Moles/Vol]136 mmol/LNormal 136-145Corey HospitalComment on above:Performed By: #### BMP, CBC, MG, PHOS ####[address] [address] USAUrea nitrogen [Mass/volume] in Serum or PlasmaOrdered By: Adrian Yancey on 91-98-2014Rcnb nitrogen [Mass/Vol]35 mg/dLHigh7-25Corey HospitalComment on above:Performed By: #### BMP, CBC, MG, PHOS ####[address] [address] USABNP ser/plasOrdered By: Allyson Munoz on 80-07-0350Nplfjrzjiyf peptide B (Bld) [Mass/Vol]3885.0 pg/mLHigh5-100Corey HospitalComment on above:Result Comment: PERFORMED BY:[address] [place], [place] [phone] MEDICAL YECENIA METCALF M.D.Performed By: #### HS TROP, CBC, BMP, BNP ####[address] [address] USABasic Metabolic Panelon 05-31-2025 Creatinine Clr Calc Igrbwlet90.53NoSampson Regional Medical Center Physician GroupComment on above:Result Comment: PERFORMED BY:[address] [place], [place] [phone] MEDICAL YECENIA METCALF M.D.Performed By: #### HS TROP, CBC, BMP, BNP ####[address] [address] USAGFR/1.73 sq M.predicted MDRD (S/P/Bld) [Vol rate/Area]15.471 mL/min/{1.73_m2}NormalThe [facility] Phys[facility] Group Comment on above:Performed By: #### HS TROP, CBC, BMP, BNP ####[address] [address] USABasophils [#/volume] in Blood by Automated countOrdered By: Allyson Munoz on 90-40-0152Envegbvrx (Bld) [#/Vol]0.1 10*3/uLNormal0.0-0.2FMansfield HospitalComment on above:Result Comment: PERFORMED BY:[address] [place], [place] [phone] MEDICAL YECENIA METCALF M.D.Performed By: #### HS TROP, CBC, BMP, BNP ####[address] [address] USABasophils/100 leukocytes in Blood by Automated countOrdered By: Allyson Munoz on 57-00-9041Fezmknarv/100 WBC (Bld) 2.0 %Normal.Corey HospitalComment on above:Performed By: #### HS TROP, CBC, BMP, BNP ####[place] [address] USACalcium [Mass/volume] in Serum or PlasmaOrdered By: Allyson Munoz on 59-30-9987Bgnayfj [Mass/Vol]8.8 mg/dLNormal8.6-10.3FMansfield HospitalComment on above:Performed By: #### HS TROP, CBC, BMP, BNP ####[address] [place] Carbon dioxide, total [Moles/volume] in Serum or PlasmaOrdered By: Allyson Munoz on 44-45-8454PO8 [Moles/Vol]30.2 mmol/HVfbqud77.0-31.0Corey HospitalComment on above:Performed By: #### HS TROP, CBC, BMP, BNP ####[place] [address] [place] Chloride [Moles/volume] in Serum or PlasmaOrdered By: Allyson Munoz on 78-61-3942Mfmguoot [Moles/Vol]96 mmol/XDim03-509BdpowgxtfCorey HospitalComment on above:Performed By: #### HS TROP, CBC, BMP, BNP ####[address] USAComplete Blood Count Auto Diffon 22-50-3908Zcpq Corpuscular HGB Conc32.7 g/ySVbupul46.5-35.6The [facility]cu Health Physician GroupComment on above:Performed By: #### HS TROP, CBC, BMP, BNP ####[address] [place] Monocytes/100 WBC (Bld)17.71 %Normal0.00-20.00[facility] Comment on above:Performed By: #### HS TROP, CBC, BMP, BNP ####[address] USANRBC%0.1 /100{WBC} Normal0-0.5The [facility]cu Health Physician GroupComment on above:Performed By: #### HS TROP, CBC, BMP, BNP ####[address] [address] USAWhite Blood Count3.6 [CFU]/mLLow4.1-10.5The [facility]cu Health Physician GroupComment on above:Performed By: #### HS TROP, CBC, BMP, BNP ####[place] [address] USACreatinine [Mass/volume] in Serum or PlasmaOrdered By: Allyson Munoz on 05-31-2025 Creatinine [Mass/Vol]4.64 mg/dLHigh0.70-1.30[facility] Comment on above:Delta: 6.71 on 05/29/25Performed By: #### HS TROP, CBC, BMP, BNP ####[address] USAECG 12 lead ECGon 30-42-8853RVI 12 lead ECGNormHCA Florida Suwannee Emergency Physician GroupECG 12 lead ECGNormHCA Florida Suwannee Emergency Physician GroupEosinophils [#/volume] in Blood by Automated countOrdered By: Allyosn Munoz on 43-42-7908Aoqukthivsm (Bld) [#/Vol]0.2 10*3/uLNormal0.0-0.45Corey HospitalComment on above:Performed By: #### HS TROP, CBC, BMP, BNP ####[address] USAEosinophils/100 leukocytes in Blood by Automated countOrdered By: Allyson Munoz on 93-37-2944Xoldaohqcwm/100 WBC (Bld)4.5 %Normal.Corey HospitalComment on above:Performed By: #### HS TROP, CBC, BMP, BNP ####[address] USAErythrocyte distribution width [Ratio] by Automated countOrdered By: Allyson Munoz on 89-13-1021Pcxvwkviywt distribution width (RBC) [Ratio]16.7 %High12.0-14.8Corey HospitalComment on above:Performed By: #### HS TROP, CBC, BMP, BNP ####[facility] [address] [place] [address] USAErythrocytes [#/volume] in Blood by Automated countOrdered By: Allyson Munoz on 49-13-9058EPW (Bld) [#/Vol]4.28 10*6/uLNormal3.90-5.60Corey HospitalComment on above: Performed By: #### HS TROP, CBC, BMP, BNP ####[facility] [address] [place] [address] USAGlomerular filtration rate [Volume Rate/Area] in Serum, Plasma or Blood by CreatinineOrdered By: Allyson Muonz on 05-31-2025 Glomerular filtration rate [Volume Rate/Area] in Serum, Plasma or Blood by Lqcfntdjhd94.471 mL/MinCorey HospitalGlucose Poct Glucometers on 65-55-2382Gvxqgxp2Cnq5: Cleaned MeterNoSampson Regional Medical Center Physician Group Comment on above:Result Comment: PERFORMED BY:[facility] [place], [place] [phone] MEDICAL DIRECTORYAMINI METCALF M.D.Performed By: #### GLULS ####Point of Care testing, Glucose [Mass/Vol]215 mg/dLMelbourne Regional Medical Center Physician GroupComment on above: Result Comment: Random Glucose Reference Range is dependent on time and content of last meal. Glucose of more than 200 mg/dL in a nonstressed, ambulatory subject supports the diagnosis of Diabetes Mellitus.Performed By: #### GLULS ####Point of Care testing,Glucose [Mass/volume] in Serum or PlasmaOrdered By: Allyson Munoz on 89-75-9731Isaspjg [Mass/Vol]214 mg/cOWndy45-366EeieylopkCorey HospitalComment on above:Delta: 110 on 05/29/25-DA recommended reference rangeRandom Glucose Reference Range is dependent on time and content of last meal. Glucose of more than 200 mg/dL in a nonstressed, ambulatory subject supports the diagnosis of Diabetes Mellitus.Result Comment: Random Glucose Reference Range is dependent on time and content of last meal. Glucose of more than 200 mg/dL in a nonstressed, ambulatory subject supports the diagnosis of Diabetes Mellitus. ADA recommended reference rangePerformed By: #### HS TROP, CBC, BMP, BNP ####[address] [place] [id number] USAHematocrit [Volume Fraction] of Blood by Automated countOrdered By: Allyson Munoz on 08-77-4335Kkvmmigopp (Bld) [Volume fraction] 36.4 %Low38.8-50.0Corey HospitalComment on above:Performed By: #### HS TROP, CBC, BMP, BNP ####[place] [address] USAHemoglobin [Mass/volume] in BloodOrdered By: Allyson Munoz on 81-95-0953Zvglpactcd (Bld) [Mass/Vol]11.9 g/dLLow13.0-17.0Corey HospitalComment on above:Performed By: #### HS TROP, CBC, BMP, BNP ####[address] [place] Leukocytes [#/volume] corrected for nucleated erythrocytes in Blood by Automated counOrdered By: Allyson Munoz on 15-86-2333RYM corrected for nucl RBC Auto (Bld) [#/Vol]3.6 10*3/uLLow4.1-10.5FMansfield HospitalLeukocytes [#/volume] in Blood by Automated countOrdered By: Allyson Munoz on 05-31-2025 WBC (Bld) [#/Vol]3.6 10*3/uLLow4.1-10.5FMansfield HospitalComment on above:Performed By: #### HS TROP, CBC, BMP, BNP ####[address] USALymphocytes [#/volume] in Blood by Automated countOrdered By: Allyson Munoz on 08-01-1887Oszhlodexzy (Bld) [#/Vol]0.5 10*3/uLLow1.00-4.8Corey HospitalComment on above:Performed By: #### HS TROP, CBC, BMP, BNP ####[address] USALymphocytes/100 leukocytes in Blood by Automated countOrdered By: Allyson Munoz on 55-95-4208Mtpyoikymvr/100 WBC (Bld)13.8 %Normal.Corey HospitalComment on above:Performed By: #### HS TROP, CBC, BMP, BNP ####[address] [facility] [Entitic mass] by Automated countOrdered By: Allyson Munoz on 46-85-0568JJE (RBC) [Entitic mass]27.8 vhHhcntq95.5-35.2 Corey HospitalComment on above:Performed By: #### HS TROP, CBC, BMP, BNP ####[address] Auto (RBC) [Mass/Vol]Ordered By: Allyson Munoz on 95-61-3417MZJC (RBC) [Mass/Vol]32.7 g/dL32.5-35.6FPremier Health Upper Valley Medical CenterV [Entitic volume] by Automated countOrdered By: Allyson Munoz on 27-77-0534FXV (RBC) [Entitic vol]85.1 yKIwvvhc19.5-101Corey HospitalComment on above:Performed By: #### HS TROP, CBC, BMP, BNP ####[address] USAMonocyte distribution width [Entitic volume] in Blood by AutomatedOrdered By: Allyson Munoz on 18-38-6375Bhxrsref distribution width Auto (Bld) [Entitic vol]17.71 %0.00-20.00Corey HospitalMonocytes [#/volume] in Blood by Automated countOrdered By: Allyson Munoz on 53-21-1066Rzmjqobty (Bld) [#/Vol]0.2 10*3/uLNormal0.0-0.8Corey HospitalComment on above:Performed By: #### HS TROP, CBC, BMP, BNP ####[address] [place] Monocytes/100 leukocytes in Blood by Automated countOrdered By: Allyson Munoz on 80-27-7909Aktbkrayb/100 WBC (Bld)6.6 %Normal.Corey HospitalComment on above:Performed By: #### HS TROP, CBC, BMP, BNP ####[place] [id number] USANeutrophils [#/volume] in Blood by Automated countOrdered By: Allyson Munoz on 05-31-2025 Neutrophils (Bld) [#/Vol]2.6 10*3/uLNormal1.8-7.7FMansfield HospitalComment on above:Performed By: #### HS TROP, CBC, BMP, BNP ####[place] [id number] USANeutrophils/100 leukocytes in Blood by Automated countOrdered By: Allyson Munoz on 05-31-2025 Neutrophils/100 WBC (Bld)73.1 %Normal.Corey HospitalComment on above:Performed By: #### HS TROP, CBC, BMP, BNP ####[place] [id number] USANo Panel InformationOrdered By: Adrian Noland on 13-99-7627Eai8: cleaned [facility] HospitalNo Panel InformationOrdered By: Allyson Munoz on 18-67-1642Nudxueko Creatinine Clearance (Chem23.53Corey HospitalNucleated erythrocytes [Presence] in Blood by Automated countOrdered By: Allyson Munoz on 86-37-0021Iosbzlxrc RBC Auto Ql (Bld)0.1 /100{WBC}0-0.5FMansfield HospitalPlatelet mean volume [Entitic volume] in Blood by Automated count Ordered By: Allyson Munoz on 69-92-2860Uofbbyby mean volume (Bld) [Entitic vol] 8.0 fLNormal6.6-10.1FMansfield HospitalComment on above:Performed By: #### HS TROP, CBC, BMP, BNP ####[address] [address] USAPlatelets [#/volume] in Blood by Automated count Ordered By: Allyson Munoz on 76-84-3601Lbvrvczkv (Bld) [#/Vol]99 10*3/uLLow 150-450Corey HospitalComment on above:Performed By: #### HS TROP, CBC, BMP, BNP ####[address] [address] USAPotassium [Moles/volume] in Serum or PlasmaOrdered By: Allyson Munoz on 72-08-9524Nwogkemeh [Moles/Vol]3.8 mmol/LNormal3.5-5.1FMansfield HospitalComment on above:Performed By: #### HS TROP, CBC, BMP, BNP ####[address] [address] [place] Serum or plasma anion gap determinationOrdered By: Allyson Munoz on 05-31-2025 Anion gap [Moles/Vol]10.6 mmol/LNormal6.0-15.0[facility] Comment on above:Performed By: #### HS TROP, CBC, BMP, BNP ####[address] [address] USASodium [Moles/volume] in Serum or PlasmaOrdered By: Allyson Munoz on 71-95-2709Syewyo [Moles/Vol]133 mmol/XKxl402-532WecegzmgxCorey HospitalComment on above:Performed By: #### HS TROP, CBC, BMP, BNP ####[address] [address] USATroponin I High Sensitivityon 76-31-2728Mtyexlnt I High Kduoefnywqt22Yna scale high0-20The [facility]cu Health Physician GroupComment on above:Result Comment: Critical Result : Called to and read back by: LICHA HEREDIA at: 05/31/2025 21:57:25 by:[id number] The Troponin units of report have been changed to meet the Chest Pain Accreditation requirement, element EC5.M1l2. Troponin units are changed from pg/ml to ng/L. Also, the decimal is removed and results are in whole numbers.PERFORMED BY:[address] [place], [place] [id number] MEDICAL YECENIA METCALF M.D.Performed By: #### HS TROP ####[place] [place] [address] USATroponin I High Yleqfjsemne08Zxj scale high 0-20The [facility]cu Health Physician GroupComment on above:Result Comment: Critical Result : Called to and read back by: MISAEL GAY at: 05/31/2025 19:12:05 by :[id number] The Troponin units of report have been changed to meet the Chest Pain Accreditation requirement, element EC5.M1l2. Troponin units are changed from pg/ml to ng/L. Also, the decimal is removed and results are in whole numbers.PERFORMED BY:[address] [place], [place] [phone] MEDICAL YECENIA METCALF M.D.Performed By: #### HS TROP, CBC, BMP, BNP ####[place] [place] [address] USATroponin I.cardiac [Mass/volume] in Serum or Plasma by Detection limit <= 0.01 ng/mLOrdered By: Allyson Munoz on 48-00-5653Abxgnabu I.cardiac DL <= 0.01 ng/mL [Mass/Vol]73 ng/LCritically high0-20Corey HospitalComment on above:Critical Result : Called to and read back by: LICHA HEREDIA at: 05/31/2025 21:57:25 by:[id number] Troponin units of report have been changed to meet the Chest Pain Accreditation requirement, element EC5.M1l2. Troponin units are changed from pg/ml to ng/L. Also, the decimal is removed and resultsare in whole numbers.Urea nitrogen [Mass/volume] in Serum or PlasmaOrdered By: Allyson Munoz on 57-53-8163Moix nitrogen [Mass/Vol]26 mg/dLHigh7-25Corey HospitalComment on above: Performed By: #### HS TROP, CBC, BMP, BNP ####[facility] [address] [place] [address] USAX-ray reportOrdered By: Trenton Salinas on 11-17-6650Xbodr [facility] [address] [place] [address] XRay Report Signed Patient: Yoel Tamayo MR#: [id number] : 1985 Acct:[id number] Age/Sex: 40 / M ADM Date: 5 Loc: ER Room: Type: [facility] ER Attending Dr: Copies to: Allyson Munoz [...] Salinas M.D. 05/31/2025 6:34 PM Dictation Location: [place] [address] Transcribed By: [facility] 05/31/251833 Dictated By: Trenton Salinas II, MD 05/31/251832 Signed By: 05/31/251833 [facility] Work Phone: Study [facility] Work Phone: XR chest 2V*on 12-01-4803XF chest 2V*NormalThe Ecu Health Physician GroupCapillary blood glucose measurement by glucometer (mass/volume)Ordered By: Tenzin Ortiz on 42-26-9587Lvxflvt [Mass/Vol]150 mg/dL Corey HospitalComment on above:Random Glucose Reference Range is dependent on time and content of last meal. Glucose of more than 200 mg/dL in a nonstressed, ambulatory subject supports the diagnosis of Diabetes Mellitus.Result Comment: Random Glucose Reference Range is dependent on time and content of last meal. Glucose of more than 200 mg/dL in a nonstressed, ambulatory subject supports the diagnosis of Diabetes Mellitus.PERFORMED BY:[address] [place], [place] [phone] MEDICAL DIRECTORYAMINI METCALF M.D.Performed By: #### GLULS ####Point of Care testing,XR chest 2V*on 13-67-3764RE chest 2V*Normal The Ecu Health Physician GroupAlanine aminotransferase [Enzymatic activity/volume] in Serum or PlasmaOrdered By: Tenzin Ortiz on 36-03-4961LUK [Catalytic activity/Vol]10 U/LNormal7-52Corey HospitalComment on above:Performed By: #### CBC, CMP, BNP, HS TROP, CK ####[address] [address] USAAlbumin [Mass/volume] in Serum or Plasma by Bromocresol green (BCG) dye binding methoOrdered By: Tenzin Ortiz on 58-28-5278Jptkgsl BCG dye [Mass/Vol]4.0 g/dL3.5-5.7FMansfield HospitalAlkaline phosphatase [Enzymatic activity/volume] in Serum or PlasmaOrdered By: Tenzin Ortiz on 99-61-1135XJK [Catalytic activity/Vol]54 U/L Oifalb27-488FwowvhxxsCorey HospitalComment on above:Performed By: #### CBC, CMP, BNP, HS TROP, CK ####[address] [address] USAAspartate aminotransferase [Enzymatic activity/volume] in Serum or PlasmaOrdered By: Tenzin Ortiz on 63-65-2200BJQ [Catalytic activity/Vol]12 U/RGly85-93WqhwqpbvqCorey HospitalComment on above:Performed By: #### CBC, CMP, BNP, HS TROP, CK ####[place] [address] [place] [address] USABNP ser/plasOrdered By: Tenzin Ortiz on 85-97-2806Uzobtynjjed peptide B (Bld) [Mass/Vol]7256.0 pg/mLHigh5-100 Corey HospitalComment on above:Result Comment: PERFORMED BY:[place] [address] [place], [place] [phone] MEDICAL YECENIA METCALF M.D.Performed By: #### CBC, CMP, BNP, HS TROP, CK ####[address] [address] USABasophils [#/volume] in Blood by Automated countOrdered By: Tenzin Ortiz on 94-55-2359Tkhlmbfjf (Bld) [#/Vol]0.1 10*3/uLNormal0.0-0.2 Corey HospitalComment on above:Result Comment: PERFORMED BY:[place] [address] [place], [place] [phone] MEDICAL YECENIA METCALF M.D.Performed By: #### CBC, CMP, BNP, HS TROP, CK ####[address] [address] USABasophils/100 leukocytes in Blood by Automated countOrdered By: Tenzin Ortiz on 75-08-2237Tqyhnggbp/100 WBC (Bld)1.4 %Normal.Corey HospitalComment on above:Performed By: #### CBC, CMP, BNP, HS TROP, CK ####[place] [address] USABilirubin.total [Mass/volume] in Serum or PlasmaOrdered By: Tenzin Ortiz on 09-61-9892Iaqcqstze [Mass/Vol]0.6 mg/dLNormal0.3-1.0Corey HospitalComment on above:Performed By: #### CBC, CMP, BNP, HS TROP, CK ####[address] [address] USACalcium [Mass/volume] in Serum or PlasmaOrdered By: Tenzin Ortiz on 78-88-6222Ypixcje [Mass/Vol]9.2 mg/dLNormal8.6-10.3FMansfield HospitalComment on above:Performed By: #### CBC, CMP, BNP, HS TROP, CK ####[place] [address] USACarbon dioxide, total [Moles/volume] in Serum or PlasmaOrdered By: Tenzin Ortiz on 19-10-6808DA2 [Moles/Vol]26.2 mmol/NBrgvjm04.0-31.0Corey HospitalComment on above:Performed By: #### CBC, CMP, BNP, HS TROP, CK ####[place] [address] USAChloride [Moles/volume] in Serum or PlasmaOrdered By: Tenzin Ortiz on 62-94-5908Qmejqhbf [Moles/Vol]97 mmol/CShh43-492GzeqkvbeoCorey HospitalComment on above:Performed By: #### CBC, CMP, BNP, HS TROP, CK ####[place] [address] USAComplete Blood Count Auto Diffon 44-90-2208Eifp Corpuscular HGB Conc33.0 g/oPTfchqx79.5-35.6The Ecu Health Physician GroupComment on above:Performed By: #### CBC, CMP, BNP, HS TROP, CK ####[place] [address] USAMonocytes/100 WBC (Bld)15.83 % Normal0.00-20.00The Ecu Health Physician GroupComment on above:Performed By: #### CBC, CMP, BNP, HS TROP, CK ####[place] [address] USANRBC%0.2 /100{WBC}Normal0-0.5The Ecu Health Physician GroupComment on above:Performed By: #### CBC, CMP, BNP, HS TROP, CK ####[place] [address] USAWhite Blood Count4.4 [CFU]/mLNormal4.1-10.5The Ecu Health Physician GroupComment on above:Performed By: #### CBC, CMP, BNP, HS TROP, CK ####[place] [address] USAComprehensive Metabolic Panel on 28-38-9617Hijjikk [Mass/Vol]4.0 g/dLNormal3.5-5.7The [facility]cu Health Physician GroupComment on above:Performed By: #### CBC, CMP, BNP, HS TROP, CK ####[place] [address] [place] Creatinine Clr Calc Zhqsqamw65.15NormalSt. Vincent'[facility] Physician [facility] River GulfportComment on above:Result Comment: PERFORMED BY:[address] [place]LYNRodríguezEsaSTE[place]ENV[place], [place] [phone] MEDICAL DIRECTORYAMINI METCALF M.D.Performed By: #### CBC, CMP, BNP, HS TROP, CK ####[place] [address] USAGFR/1.73 sq M.predicted MDRD (S/P/Bld) [Vol rate/Area]9.938 mL/min/{1.73_m2}NormalThe [facility] Health Physician [place] [facility] GulfportComment on above:Performed By: #### CBC, CMP, BNP, HS TROP, CK ####[place] [address] [place] Creatine kinase [Enzymatic activity/volume] in Serum or PlasmaOrdered By: Tenzin Ortiz on 76-90-2451EU [Catalytic activity/Vol]68 U/VKsplnr52-473PfeztmymzCorey HospitalComment on above:Performed By: #### CBC, CMP, BNP, HS TROP, CK ####[place] [address] USACreatinine [Mass/volume] in Serum or PlasmaOrdered By: Tenzin Ortiz on 34-51-1619Taqebujcbh [Mass/Vol]6.71 mg/dLHigh0.70-1.30Corey HospitalComment on above:Performed By: #### CBC, CMP, BNP, HS TROP, CK ####[place] [address] USAECG 12 lead ECGon 41-26-9710MOC 12 lead ECGNoSampson Regional Medical Center Physician Group Eosinophils [#/volume] in Blood by Automated countOrdered By: Tenzin Ortiz on 22-36-0730Hyoyoxeknqn (Bld) [#/Vol]0.2 10*3/uLNormal0.0-0.45Corey HospitalComment on above:Performed By: #### CBC, CMP, BNP, HS TROP, CK ####[place] [address] [place] Eosinophils/100 leukocytes in Blood by Automated countOrdered By: Tenzin Ortiz on 91-93-7984Vgnhjdyhphp/100 WBC (Bld)4.5 %Normal.Corey HospitalComment on above:Performed By: #### CBC, CMP, BNP, HS TROP, CK ####[place] [address] [place] Erythrocyte distribution width [Ratio] by Automated countOrdered By: Tenzin Ortiz on 33-81-4242Bpzulvxjmwr distribution width (RBC) [Ratio]16.7 %High 12.0-14.8Corey HospitalComment on above:Performed By: #### CBC, CMP, BNP, HS TROP, CK ####[place] [address] USAErythrocytes [#/volume] in Blood by Automated count Ordered By: Tenzin Ortiz on 58-18-4071IXJ (Bld) [#/Vol]4.04 10*6/uLNormal 3.90-5.60Corey HospitalComment on above:Performed By: #### CBC, CMP, BNP, HS TROP, CK ####[place] [address] USAGlomerular filtration rate [Volume Rate/Area] in Serum, Plasma or Blood by CreatinineOrdered By: Tenzin Ortiz on 05-29-2025 Glomerular filtration rate [Volume Rate/Area] in Serum, Plasma or Blood by Creatinine9.938 mL/MinCorey HospitalGlucose Poct Glucometers on 10-07-9721Nzlasux [Mass/Vol]111 mg/dLNoSampson Regional Medical Center Physician Group Comment on above:Result Comment: Random Glucose Reference Range is dependent on time and content of last meal. Glucose of more than 200 mg/dL in a nonstressed, ambulatory subject supports the diagnosis of Diabetes Mellitus.PERFORMED BY:[place] [address] [place], [place] [phone] MEDICAL DIRECTORYAMINI METCALF M.D.Performed By: #### GLULS ####Point of Care testing,Glucose [Mass/Vol]137 mg/dLMelbourne Regional Medical Center Physician GroupComment on above:Result Comment: Random Glucose Reference Range is dependent on time and content of last meal. Glucose of more than 200 mg/dL in a nonstressed, ambulatory subject supports the diagnosis of Diabetes Mellitus.PERFORMED BY:[address] [place], [place] [phone] MEDICAL YECENIA METCALF M.D.Performed By: #### GLULS ####Point of Care testing,Glucose [Mass/volume] in Serum or PlasmaOrdered By: Tenzin Ortiz on 59-73-2993Tdujeec [Mass/Vol]110 mg/bOYqxq64-280TusghjqexCorey HospitalComment on above:ADA recommended reference rangeRandom Glucose Reference Range is dependent on time and content of last meal. Glucose of more than 200 mg/dL in a nonstressed, ambulatory subject supports the diagnosisof Diabetes Mellitus.Result Comment: Random Glucose Reference Range is dependent on time and content of last meal. Glucose of more than 200 mg/dL in a nonstressed, ambulatory subject supports the diagnosis of Diabetes Mellitus. ADA recommended reference rangePerformed By: #### CBC, CMP, BNP, HS TROP, CK ####[address] [address] [place] [address] USAHematocrit [Volume Fraction] of Blood by Automated countOrdered By: Tenzin Ortiz on 64-49-0189Fchqdxielk (Bld) [Volume fraction] 34.9 %Low38.8-50.0Corey HospitalComment on above:Performed By: #### CBC, CMP, BNP, HS TROP, CK ####[address] [address] USAHemoglobin [Mass/volume] in BloodOrdered By: Tenzin Ortiz on 75-40-9821Yderisrlvn (Bld) [Mass/Vol]11.5 g/dLLow13.0-17.0Corey HospitalComment on above:Performed By: #### CBC, CMP, BNP, HS TROP, CK ####[address] [address] USALeukocytes [#/volume] corrected for nucleated erythrocytes in Blood by Automated counOrdered By: Tenzin Ortiz on 47-45-5120NMG corrected for nucl RBC Auto (Bld) [#/Vol]4.4 10*3/uL4.1-10.5FMansfield HospitalLeukocytes [#/volume] in Blood by Automated countOrdered By: Tenzin Ortiz on 05-29-2025 WBC (Bld) [#/Vol]4.4 10*3/uLNormal4.1-10.5FMansfield Hospital Comment on above:Performed By: #### CBC, CMP, BNP, HS TROP, CK ####[address] [address] USALymphocytes [#/volume] in Blood by Automated countOrdered By: Tenzin Ortiz on 05-29-2025 Lymphocytes (Bld) [#/Vol]0.8 10*3/uLLow1.00-4.8[facility] Comment on above:Performed By: #### CBC, CMP, BNP, HS TROP, CK ####[address] [address] USALymphocytes/100 leukocytes in Blood by Automated countOrdered By: Tenzin Ortiz on 05-29-2025 Lymphocytes/100 WBC (Bld)17.5 %Normal.Corey HospitalComment on above:Performed By: #### CBC, CMP, BNP, HS TROP, CK ####[address] [address] USAMCH [Entitic mass] by Automated countOrdered By: Tenzin Ortiz on 61-96-8384CGZ (RBC) [Entitic mass] 28.5 pcXzyiuw84.5-35.2FMansfield HospitalComment on above: Performed By: #### CBC, CMP, BNP, HS TROP, CK ####[address] StreetHC Auto (RBC) [Mass/Vol]Ordered By: Tenzin Ortiz on 41-26-5845XOBK (RBC) [Mass/Vol]33.0 g/dL32.5-35.6FMansfield HospitalMCV [Entitic volume] by Automated countOrdered By: Tenzin Ortiz on 51-92-4472KLO (RBC) [Entitic vol]86.3 yVXpvehm49.5-101Corey HospitalComment on above:Performed By: #### CBC, CMP, BNP, HS TROP, CK ####[place] [address] USAMonocyte distribution width [Entitic volume] in Blood by AutomatedOrdered By: Tenzin Ortiz on 94-77-2658Stocaeqb distribution width Auto (Bld) [Entitic vol] 15.83 %0.00-20.00Corey HospitalMonocytes [#/volume] in Blood by Automated countOrdered By: Tenzin Ortiz on 84-68-8285Ppadkvvbz (Bld) [#/Vol] 0.3 10*3/uLNormal0.0-0.8Corey HospitalComment on above: Performed By: #### CBC, CMP, BNP, HS TROP, CK ####[place] [address] USAMonocytes/100 leukocytes in Blood by Automated countOrdered By: Tenzin Ortiz on 75-84-2100Fiyysmjde/100 WBC (Bld)7.9 %Normal.Corey HospitalComment on above:Performed By: #### CBC, CMP, BNP, HS TROP, CK ####[place] [address] USANeutrophils [#/volume] in Blood by Automated count Ordered By: Tenzin Ortiz on 80-46-2430Pwnudvytirf (Bld) [#/Vol]3.0 10*3/uL Normal1.8-7.7FMansfield HospitalComment on above:Performed By: #### CBC, CMP, BNP, HS TROP, CK ####[facility] [place] [address] USANeutrophils/100 leukocytes in Blood by Automated countOrdered By: Tenzin Ortiz on 65-20-5007Dsnhpyrovvz/100 WBC (Bld)68.7 % Normal.Corey HospitalComment on above:Performed By: #### CBC, CMP, BNP, HS TROP, CK ####[facility] [place] [address] USANo Panel InformationOrdered By: Tenzin Ortiz on 05-29-2025 Pharmacy Creatinine Clearance (Chem16.15[facility]16.15 Corey HospitalNucleated erythrocytes [Presence] in Blood by Automated countOrdered By: Tenzin Ortiz on 97-51-9245Btgqfcqnx RBC Auto Ql (Bld)0.2 /100{WBC}0-0.5FMansfield HospitalPlatelet mean volume [Entitic volume] in Blood by Automated countOrdered By: Tenzin Ortiz on 97-93-7312Zaqutgfv mean volume (Bld) [Entitic vol]8.2 fLNormal6.6-10.1FMansfield HospitalComment on above:Performed By: #### CBC, CMP, BNP, HS TROP, CK ####[place] [address] [place] [id number] USAPlatelets [#/volume] in Blood by Automated countOrdered By: Tenzin Ortiz on 09-62-2287Iocodgrwl (Bld) [#/Vol]111 10*3/yCWel875-876NxhasweqdCorey HospitalComment on above:Performed By: #### CBC, CMP, BNP, HS TROP, CK ####[place] [address] [place] [id number] [place] Potassium [Moles/volume] in Serum or PlasmaOrdered By: Tenzin Ortiz on 49-91-6005Bjejyloob [Moles/Vol]4.0 mmol/LNormal3.5-5.1Firelands Regional Medical CenterComment on above:Performed By: #### CBC, CMP, BNP, HS TROP, CK ####[place] [address] USAProtein [Mass/volume] in Serum or PlasmaOrdered By: Tenzin Ortiz on 40-39-9534Qjnlvfe [Mass/Vol]6.8 g/dLNormal6.4-8.9Corey HospitalComment on above:Performed By: #### CBC, CMP, BNP, HS TROP, CK ####[place] [address] USASerum globulin measurement by calculation (mass/volume)Ordered By: Tenzin Ortiz on 36-46-1295Mmappbjb (S) [Mass/Vol]2.8 g/dLNormKettering Health TroyComment on above: Performed By: #### CBC, CMP, BNP, HS TROP, CK ####[place] [address] USASerum or plasma albumin/globulin mass ratioOrdered By: Tenzin Ortiz on 32-66-0913Lyxorhr/Globulin [Mass ratio]1.4 {ratio}NormalCorey HospitalComment on above:Performed By: #### CBC, CMP, BNP, HS TROP, CK ####[place] [address] USASerum or plasma anion gap determinationOrdered By: Tenzin Ortiz on 43-49-9290Ycbev gap [Moles/Vol]14.8 mmol/LNormal6.0-15.0 Corey HospitalComment on above:Performed By: #### CBC, CMP, BNP, HS TROP, CK ####[place] [address] USASodium [Moles/volume] in Serum or PlasmaOrdered By: Tenzin Ortiz on 11-68-2568Hizpaq [Moles/Vol]134 mmol/EQbh889-265NccjlvkscCorey HospitalComment on above:Performed By: #### CBC, CMP, BNP, HS TROP, CK ####[place] [address] [place] Troponin I High Sensitivityon 11-66-1767Fqzofcat I High Otsltioscfu70Xrt scale [address] Physician GroupComment on above:Result Comment: Critical Result : Called to and read back by: YULISSA UGALDE at: 05/30/2025 01:12:17 by:DH The Troponin units of report have been changed to meet the Chest Pain Accreditation requirement, element EC5.M1l2. Troponin units are changed from pg/ml to ng/L. Also, the decimal is removed andresults are in whole numbers.PERFORMED BY:[address]ETAngiBRISTOLVILLE, [place] [phone] MEDICAL DIRECTORYAMINI METCALF M.D.Performed By: #### HS TROP ####[address] [address] [facility] CENTERTroponin I High Llwxrhxfote66Fvb scale [address] Physician [place] GulfportComment on above:Result Comment: Critical Result : Called to and read back by: SANDRA BERGMAN at: 05/29/2025 22:33:30 by:AC The Troponin units of report have been changed to meet the Chest Pain Accreditation requirement, element EC5.M1l2. Troponin units are changed from pg/ml to ng/L. Also, the decimal is removed and results are in whole numbers.PERFORMED BY:[address] [place], [place] [phone] MEDICAL YECENIA METCALF M.D.Performed By: #### CBC, CMP, BNP, HS TROP, CK ####[address] [address] [facility] Troponin I.cardiac [Mass/volume] in Serum or Plasma by Detection limit <= 0.01 ng/mLOrdered By: Tenzin Ortiz on 73-60-2326Camokzlm I.cardiac DL <= 0.01 ng/mL [Mass/Vol]70 ng/LCritically 23 Hall StreetComment on above:Critical Result : Called to and read back by: YULISSA UGALDE at: 05/30/2025 01:12:17 by:DHThe Troponin units of report have been changed to meet the Chest Pain Accreditation requirement, element EC5.M1l2. Troponin units are changed from pg/ml to ng/L. Also, the decimal is removed and results are in whole numbers.Urea nitrogen [Mass/volume] in Serum or PlasmaOrdered By: Tenzin Ortiz on 93-97-5269Iknl nitrogen [Mass/Vol]44 mg/dLHigh7-25Corey HospitalComment on above:Performed By: #### CBC, CMP, BNP, HS TROP, CK ####[place] [id number] [facility] Appearance of UrineOrdered By: Angie Benavides on 75-11-6679Hqcnsavymv (U)Clear NormalCleAdena Pike Medical CenterComment on above:Order Comment: Name Collection Type:: Clean-Voided MidstreamPerformed By: #### ADDONUAPLUS ####[address] [address] [facility] Bacteria [Presence] in Urine by AutomatedOrdered By: Angie Benavides on 05-06-2025 Bacteria Auto Ql (U)None seen [HPF]None SeenCorey Hospital Bilirubin Test strip Ql (U)Ordered By: Angie Benavides on 21-84-8412Yeknkaigk Ql (U)NegativeNegativeCorey HospitalCapillary blood glucose measurement by glucometer (mass/volume)Ordered By: Nadeen Grant on 05-06-2025 Glucose [Mass/Vol]243 mg/dLNormKettering Health TroyComment on above:Random Glucose Reference Range is dependent on time and content of last meal. Glucose of more than 200 mg/dL in a nonstressed, ambulatory subject supports the diagnosis of Diabetes Mellitus.Result Comment: Random Glucose Reference Range is dependent on time and content of last meal. Glucose of more than 200 mg/dL in a nonstressed, ambulatory subject supports the diagnosis of Diabetes Mellitus.PERFORMED BY:[address] [place], [place] [phone] MEDICAL DIRECTORYAMINI METCALF M.D.Performed By: #### GLULS ####Point of Care testing,Color of Urine by Auto Ordered By: Angie Benavides on 55-73-5380Xmhga (U)Light-yellowNormalYellow Corey HospitalComment on above:Order Comment: Name Collection Type:: Clean-Voided MidstreamPerformed By: #### ADDONUAPLUS ####[address] [address] USADipstick and Microscopicon 98-63-1294Azidyjsz,UrineNone SeenNormalNone SeenThe Ecu Health Physician GroupComment on above:Order Comment: Name Collection Type:: Clean- Voided MidstreamPerformed By: #### ADDONUAPLUS ####[address] [address] USABilirubin,UrineNegativeNormalNegative The Ecu Health Physician GroupComment on above:Order Comment: Name Collection Type:: Clean-Voided MidstreamPerformed By: #### ADDONUAPLUS ####[address] [address] USAGlucose Ql (U)200 mg/dLNormalNormalThe Ecu Health Physician GroupComment on above:Order Comment: Name Collection Type:: Clean-Voided MidstreamPerformed By: #### ADDONUAPLUS ####[address] [address] USAHyaline Casts,Fddhh4-0Qczcpk8-1Sob Ecu Health Physician GroupComment on above:Order Comment: Name Collection Type:: Clean-Voided MidstreamPerformed By: #### ADDONUAPLUS ####[address] [address] USAMucus,UrineRareNormalSt. Vincent'[facility]side Physician GroupComment on above: Order Comment: Name Collection Type:: Clean-Voided MidstreamResult Comment: PERFORMED BY:[address] [place], [place] [phone] MEDICAL YECENIA METCALF M.D.Performed By: #### ADDONUAPLUS ####[address] [address] USANitrite,UrineNegativeNormalNegativeSt. [facility] Physician Group Comment on above:Order Comment: Name Collection Type:: Clean-Voided Midstream Performed By: #### ADDONUAPLUS ####[address] [address] USAOccult Blood,Urine1+NormalNegativeThe Ecu Health Physician GroupComment on above:Order Comment: Name Collection Type:: Clean- Voided MidstreamResult Comment: PERFORMED BY:[address] [place]NRodríguezEsa[place], [place] [phone] MEDICAL YECENIA METCALF M.D.Performed By: #### ADDONUAPLUS ####[address] [address] USARBC,Sphcn5-9Ewmjwi5-1 The Ecu Health Physician GroupComment on above:Order Comment: Name Collection Type:: Clean-Voided MidstreamPerformed By: #### ADDONUAPLUS ####[address] [address] USASpecificy [place],Urine1.085Ppjgsd3.001-1.030The Ecu Health Physician GroupComment on above:Order Comment: Name Collection Type:: Clean-Voided MidstreamPerformed By: #### ADDONUAPLUS ####[address] [address] USASquamous Epithelial Cell,Nkjsj7-6Esrbfh5-4Fux Ecu Health Physician GroupComment on above:Order Comment: Name Collection Type:: Clean-Voided MidstreamPerformed By: #### ADDONUAPLUS ####[address] [address] USAUrobilinogen,UrineNormalNormalNormalThe Ecu Health Physician GroupComment on above:Order Comment: Name Collection Type:: Clean-Voided MidstreamPerformed By: #### ADDONUAPLUS ####[address] [address] USAWBC,Snjka5-3Nqfdwe7-7Nui Ecu Health Physician GroupComment on above:Order Comment: Name Collection Type:: Clean-Voided MidstreamPerformed By: #### ADDONUAPLUS ####[facility] [place] [address] USAEpithelial cells.squamous [#/area] in Urine sediment by Automated countOrdered By: Angie Benavides on 76-61-4384Ajbuzizgvr cells.squamous Auto (Urine sed) [#/Area]1-2 [HPF]0-2 Corey HospitalErythrocytes [#/area] in Urine sediment by Automated countOrdered By: Angie Benavides on 72-87-0821JSH Auto (Urine sed) [#/Area]3-4 [HPF]0-4FMansfield HospitalGlucose Poct Glucometerson 80-92-0510Pvlhmac [Mass/Vol]231 mg/dLMelbourne Regional Medical Center Physician GroupComment on above:Result Comment: Random Glucose Reference Range is dependent on time and content of last meal. Glucose of more than 200 mg/dL in a nonstressed, ambulatory subject supports the diagnosis of Diabetes Mellitus.PERFORMED BY:[address] [place], [place] [phone] MEDICAL YECENIA METCALF M.D.Performed By: #### GLULS ####Point of Care testing,Mrrbssx7Cqc3: Cleaned MeterNoSampson Regional Medical Center Physician GroupComment on above:Result Comment: PERFORMED BY:[address] [place]saSTE[place], [place] [phone] MEDICAL YECENIA METCALF M.D.Performed By: #### GLULS ####Point of Care testing,Glucose [Mass/Vol]217 mg/dLMelbourne Regional Medical Center Physician GroupComment on above:Result Comment: Random Glucose Reference Range is dependent on time and content of last meal. Glucose of more than 200 mg/dL in a nonstressed, ambulatory subject supports the diagnosis of Diabetes Mellitus.Performed By: #### GLULS ####Point of Care testing,Glucose [Mass/Vol]183 mg/dLMelbourne Regional Medical Center Physician GroupComment on above:Result Comment: Random Glucose Reference Range is dependent on time and content of last meal. Glucose of more than 200 mg/dL in a nonstressed, ambulatory subject supports the diagnosis of Diabetes Mellitus.PERFORMED BY:[address] [address] [address] HOFFEsaÓ[place]ARMEM[place], [place] [phone] MEDICAL YECENIA METCALF M.D.Performed By: #### GLULS ####Point of Care testing,Vftfolk5See0: Cleaned MeterNoSampson Regional Medical Center Physician GroupComment on above:Result Comment: PERFORMED BY:[address] HOFFEsaÓSCAR, [place] [phone] MEDICAL YECENIA METCALF M.D.Performed By: #### GLULS ####Point of Care testing,Glucose [Mass/Vol]128 mg/dLMelbourne Regional Medical Center Physician GroupComment on above:Result Comment: Random Glucose Reference Range is dependent on time and content of last meal. Glucose of more than 200 mg/dL in a nonstressed, ambulatory subject supports the diagnosis of Diabetes Mellitus.Performed By: #### GLULS ####Point of Care testing,Glucose [Mass/Vol]116 mg/dLMelbourne Regional Medical Center Physician GroupComment on above:Result Comment: Random Glucose Reference Range is dependent on time and content of last meal. Glucose of more than 200 mg/dL in a nonstressed, ambulatory subject supports the diagnosis of Diabetes Mellitus.PERFORMED BY:[address] [place]OFFEsaÓ[place], [place] [phone] MEDICAL YECENIA METCALF M.D.Performed By: #### GLULS ####Point of Care testing, Fksfkmq5Mhm9: Cleaned MeterNoSampson Regional Medical Center Physician GroupComment on above: Performed By: #### GLULS ####Point of Care testing,Vqvpgai6AKAAANNAMARIA NORWOOD DR/TERE [facility] Physician GroupComment on above:Result Comment: PERFORMED BY:[address] [address] [address] [place], [place] [phone] MEDICAL YECENIA METCALF M.D.Performed By: #### GLULS ####Point of Care testing,Glucose [Mass/Vol]59 mg/dLOff scale lowThe Ecu Health Physician GroupComment on above:Result Comment: Random Glucose Reference Range is dependent on time and content of last meal. Glucose of more than 200 mg/dL in a nonstressed, ambulatory subject supports the diagnosis of Diabetes Mellitus. Performed By: #### GLULS ####Point of Care testing,Glucose [Mass/Vol]73 mg/dL NormalThe Ecu Health Physician GroupComment on above:Result Comment: Random Glucose Reference Range is dependent on time and content of last meal. Glucose of more than 200 mg/dL in a nonstressed, ambulatory subject supports the diagnosis of Diabetes Mellitus.PERFORMED BY:[facility] [place], [place] [phone] MEDICAL DIRECTORYAMINI METCALF M.D.Performed By: #### GLULS ####Point of Care testing, Glucose [Mass/volume] in Urine by Test stripOrdered By: Angie Benavides on 42-15-7820Ysjtabl Test strip (U) [Mass/Vol]200 mg/dLOhioHealth Arthur G.H. Bing, MD, Cancer CenterHemoglobin Test strip Ql (U)Ordered By: Angie Benavides on 53-41-8146Hwnflugywh Ql (U)1+HighUniversity Hospitals Health System Hyaline casts [#/area] in Urine sediment by Automated countOrdered By: Angie Benavides on 79-17-0341Fothgiz casts Auto (Urine sed) [#/Area]0-8 [LPF]0-8 Corey HospitalKetones [Presence] in Urine by Test strip Ordered By: Angie Benavides on 98-80-8592Dtrtjwf Ql (U)NegativeNormalNegBellevue HospitalComment on above:Order Comment: Name Collection Type:: Clean-Voided MidstreamPerformed By: #### ADDONUAPLUS ####[facility] [place] [address] USALeukocyte esterase [Presence] in Urine by Test stripOrdered By: Angie Benavides on 05-06-2025 Leukocyte esterase Test strip Ql (U)NegativeNormalNegFulton County Health CenterComment on above:Order Comment: Name Collection Type:: Clean- Voided MidstreamPerformed By: #### ADDONUAPLUS ####[facility] [id number] [place] [address] USALeukocytes [#/area] in Urine sediment by Automated countOrdered By: Angie Benavides on 30-56-3251XLR Auto (Urine sed) [#/Area]3-4 [HPF]0-4FMansfield HospitalMucus [Presence] in Urine by AutomatedOrdered By: Angie Benavides on 49-41-4628Zezvn Auto Ql (U)Rare [LPF] Corey HospitalNitrite Test strip Ql (U)Ordered By: Angie Benavides on 82-30-6289Mofvpaf Ql (U)NegativeNegativeCorey HospitalNo Panel InformationOrdered By: Angie Benavides on 64-45-8200Bxhvrjq Glucose CommentGlu2: cleaned meterCorey HospitalGlu2: cleaned meter Corey HospitalBedside Glucose #[address]/rn Corey HospitalWill notify dr/rnFMansfield HospitalBlood Gas Critical ValueSee [facility] Comment on above:Critical Value called on: 05/06/2025 at 00:04Blood Gas Sample SiteVenCleveland Clinic Mentor HospitalFiO221 %Corey HospitalVenous Blood Base Excess4.4 mmol/LHigh-3.0-3.0Corey HospitalVenous Blood Oxygen Content7.4 mmol/L6.6-9.7FMansfield HospitalVenous Blood Oxygen Magsazljuk36.6 %Critically high73.0-76.0Corey HospitalVenous Blood Partial Pressure CO240.4 mm[Hg]38.0-50.0 Corey HospitalVenous Blood Partial Pressure O268.0 mm[Hg]High 35.0-45.0Corey HospitalVenous Blood pH7.23Shyk3.32-7.43 [facility]7.36Ivak1.32-7.43[facility]40.4 mm[Hg]38.0-50.0[facility]68.0 mm[Hg]High 35.0-45.0[facility]28.5 mmol/L23.0-29.0[facility]4.4 mmol/LHigh-3.0-3.0[facility]93.6 % Critically high73.0-76.0[facility]7.4 mmol/L6.6-9.7 [facility]29.7 mmol/LHigh24.0-29.0[facility]21 %Corey HospitalVenousMagruder Memorial Hospitalee commentCorey HospitalProtein [Mass/volume] in Urine by Test stripOrdered By: Angie Benavides on 42-24-1618Xicydts (U) [Mass/Vol]200 mg/dLNomission hospital mcdowellNegFulton County Health CenterComment on above:Order Comment: Name Collection Type:: Clean-Voided MidstreamPerformed By: #### ADDONUAPLUS ####[facility] [place] [address] [facility] HE[facility] CENTERSpecific gravity Test strip (U) [Rel density]Ordered By: Angie Benavides on 73-52-4664Qrjbhfna gravity (U) [Rel density]1.0081.001-1.030Corey HospitalUrobilinogen Test strip (U) [Mass/Vol]Ordered By: Angie Benavides on 67-64-3361Qrmracznwzqe (U) [Mass/Vol]Normal mg/dLNormKettering Health TroyVenous Blood GasOrdered By: Angie Benavides on 05-06-2025 CO2 [Moles/Vol]29.7 mmol/LHigh24.0-29.0Corey HospitalComment on above:Performed By: #### VBG ####Point of Care testing,HCO3 (Bld) [Moles/Vol] 28.5 mmol/BBsjolo47.0-29.0Corey HospitalComment on above: Performed By: #### VBG ####Point of Care testing,Venous Blood Gason 05-06-2025 Respiratory CriticalNoSampson Regional Medical Center Physician GroupComment on above:Result Comment: Critical Value called on: 05/06/2025 at 00:04PERFORMED BY:[facility] [place], [place] [phone] MEDICAL DIRECTORYAMINI METCALF M.D.Performed By: #### VBG ####Point of Care testing,VBG Base Excess4.4 mmol/LHigh-3.0-3.0The [facility] Comment on above:Performed By: #### VBG ####Point of Care testing,VBG Draw Site VenousNormalThe Ecu Health Physician GroupComment on above:Performed By: #### VBG ####Point of Care testing,VBG Frac Inspired O221 %NormalThe Ecu Health Physician GroupComment on above:Performed By: #### VBG ####Point of Care testing,VBG O2 Content7.4 mmol/LNormal6.6-9.7The Ecu Health Physician GroupComment on above: Performed By: #### VBG ####Point of Care testing,VBG Oxygen Xlwgsicdzv06.6 %Off scale high73.0-76.0The Ecu Health Physician GroupComment on above:Performed By: #### VBG ####Point of Care testing,VBG NSY248.4 mm[Hg]Lndgrz13.0-50.0The Ecu Health Physician GroupComment on above:Performed By: #### VBG ####Point of Care testing,VBG PH Venous PH7.99Ekto4.32-7.43The [facility] Physician [facility] Comment on above:Performed By: #### VBG ####Point of Care testing,VBG PO268.0 mm[Hg]High35.0-45.0The [facility]cu Health Physician GroupComment on above:Performed By: #### VBG ####Point of Care testing,pH of Urine by Test stripOrdered By: Angie Benavides on 95-88-1441gX (U)8.0 [pH]Normal5.0-9.0Corey HospitalComment on above:Order Comment: Name Collection Type:: Clean-Voided MidstreamPerformed By: #### ADDONUAPLUS ####[address] [address] USAAlanine aminotransferase [Enzymatic activity/volume] in Serum or PlasmaOrdered By: Angie Benavides on 98-76-8802AYI [Catalytic activity/Vol]10 U/LNormal7-52Corey HospitalComment on above:Performed By: #### CBC, CMP ####[place] [id number] USAAlbumin [Mass/volume] in Serum or Plasma by Bromocresol green (BCG) dye binding methoOrdered By: Angie Benavdies on 05-05-2025 Albumin BCG dye [Mass/Vol]4.8 g/dL3.5-5.7FMansfield Hospital Alkaline phosphatase [Enzymatic activity/volume] in Serum or PlasmaOrdered By: Angie Benavides on 92-93-8130IKI [Catalytic activity/Vol]60 U/MMhhupb52-290 Corey HospitalComment on above:Performed By: #### CBC, CMP ####[address] [address] [place] Aspartate aminotransferase [Enzymatic activity/volume] in Serum or PlasmaOrdered By: Angie Benavides on 59-15-0023XCX [Catalytic activity/Vol]15 U/KTvvmpv72-76 Corey HospitalComment on above:Performed By: #### CBC, CMP ####[address] [address] [place] Basophils [#/volume] in Blood by Automated countOrdered By: Angie Benavides on 93-07-4576Btbilqzfu (Bld) [#/Vol]0.1 10*3/uLNormal0.0-0.2FMansfield HospitalComment on above:Result Comment: PERFORMED BY:[address], [place] [phone] MEDICAL YECENIA METCALF M.D.Performed By: #### CBC, CMP ####[address] [address] USABasophils/100 leukocytes in Blood by Automated countOrdered By: Nidal Choujaa on 89-80-3448Wwrcpcjso/100 WBC (Bld)2.4 %Normal.Corey HospitalComment on above:Performed By: #### CBC, CMP ####[place] [id number] USABilirubin.total [Mass/volume] in Serum or PlasmaOrdered By: Nidal Choujaa on 15-55-2836Xjkkardhq [Mass/Vol]0.7 mg/dLNormal0.3-1.0Corey HospitalComment on above:Performed By: #### CBC, CMP ####[place] [id number] USACalcium [Mass/volume] in Serum or PlasmaOrdered By: Nidal Choujaa on 03-38-3706Sggxjni [Mass/Vol]9.9 mg/dLNormal8.6-10.3FMansfield HospitalComment on above:Performed By: #### CBC, CMP ####[place] [address] USACarbon dioxide, total [Moles/volume] in Serum or PlasmaOrdered By: Nidal Choujaa on 61-18-6543UY0 [Moles/Vol]29.3 mmol/LNormal 21.0-31.0Corey HospitalComment on above:Performed By: #### CBC, CMP ####[place] [address] USAChloride [Moles/volume] in Serum or PlasmaOrdered By: Nidal Choujaa on 04-67-6257Wwiaprpl [Moles/Vol]94 mmol/EMai72-164RvknairjkCorey HospitalComment on above:Performed By: #### CBC, CMP ####[place] [id number] USAComplete Blood Count Auto Diff on 32-88-1561Ydow Corpuscular HGB Conc33.0 g/bPBjachb11.5-35.6The Ecu Health Physician GroupComment on above:Performed By: #### CBC, CMP ####[address] [address] USAMonocytes/100 WBC (Bld)17.15 %Normal0.00-20.00The [facility] Physician [facility] GulfportComment on above: Performed By: #### CBC, CMP ####[address] [address] USANRBC%0.2 /100{WBC}Normal0-0.5The [facility]cu Health Physician GroupComment on above:Performed By: #### CBC, CMP ####[address] [address] USAWhite Blood Count4.7 [CFU]/mL Normal4.1-10.5The [facility]cu Health Physician GroupComment on above:Performed By: #### CBC, CMP ####[address] [address] USAComprehensive Metabolic Panelon 54-53-0293Mtwauez [Mass/Vol]4.8 g/dLNormal 3.5-5.7The [facility]cu Health Physician GroupComment on above:Performed By: #### CBC, CMP ####[place] [address] [place] Creatinine Clr Calc Humtuheo89.42NormalThe [facility] Physician [facility] GulfportComment on above:Result Comment: PERFORMED BY:[address] [place], [place] [phone] MEDICAL YECENIA METCALF M.D.Performed By: #### CBC, CMP ####[place] [address] USAGFR/1.73 sq M.predicted MDRD (S/P/Bld) [Vol rate/Area]17.436 mL/min/{1.73_m2}NormalThe [facility] Physician [facility] GulfportComment on above:Performed By: #### CBC, CMP ####[place] [address] USACreatinine [Mass/volume] in Serum or PlasmaOrdered By: Angie Benavides on 15-24-7870Wqmnsynmbx [Mass/Vol]4.20 mg/dLHigh0.70-1.30 Corey HospitalComment on above:Performed By: #### CBC, CMP ####[place] [id number] USAECG 12 lead ECGon 50-23-4406KYR 12 lead ECGNoSampson Regional Medical Center Physician Group Eosinophils [#/volume] in Blood by Automated countOrdered By: Angie Benavides on 38-90-2173Dkeveplcsms (Bld) [#/Vol]0.2 10*3/uLNormal0.0-0.45Corey HospitalComment on above:Performed By: #### CBC, CMP ####[place] [id number] USAEosinophils/100 leukocytes in Blood by Automated countOrdered By: Angie Benavides on 05-05-2025 Eosinophils/100 WBC (Bld)4.8 %Normal.Corey HospitalComment on above:Performed By: #### CBC, CMP ####[place] [address] USAErythrocyte distribution width [Ratio] by Automated countOrdered By: Angie Benavides on 21-68-5232Tcirqeebcsp distribution width (RBC) [Ratio]19.6 %High12.0-14.8Corey HospitalComment on above: Performed By: #### CBC, CMP ####[place] [address] USAErythrocytes [#/volume] in Blood by Automated count Ordered By: Angie Benavides on 94-96-3994QSC (Bld) [#/Vol]4.16 10*6/uLNormal 3.90-5.60Corey HospitalComment on above:Performed By: #### CBC, CMP ####[place] [id number] USAGlomerular filtration rate [Volume Rate/Area] in Serum, Plasma or Blood by CreatinineOrdered By: Angie Benavides on 24-71-3842Vrftvsefww filtration rate [Volume Rate/Area] in Serum, Plasma or Blood by Hrczysycba22.436 mL/MinCorey HospitalGlucose Poct Glucometerson 87-62-3056Thkdmni [Mass/Vol] 140 mg/dLNoSampson Regional Medical Center Physician GroupComment on above:Result Comment: Random Glucose Reference Range is dependent on time and content of last meal. Glucose of more than 200 mg/dL in a nonstressed, ambulatory subject supports the diagnosis of Diabetes Mellitus.PERFORMED BY:[address] [address] [address] [place], [place] [phone] MEDICAL YECENIA METCALF M.D.Performed By: #### GLULS ####Point of Care testing, Nswxqez6TfaunpEea [facility]lands Physician GroupComment on above:Result Comment: Glu2: Result Not ConfirmedPERFORMED BY:[address] [address] [address] [place]IM[place]ZMEM[place], [place] [phone] MEDICAL YECENIA METCALF M.D.Performed By: #### GLULS ####Point of Care testing,Glucose [Mass/Vol]50 mg/dLOff scale lowSt. Vincent'S Medical Center Southside Physician GroupComment on above: Result Comment: Random Glucose Reference Range is dependent on time and content of last meal. Glucose of more than 200 mg/dL in a nonstressed, ambulatory subject supports the diagnosis of Diabetes Mellitus.Performed By: #### GLULS ####Point of Care testing,Glucose [Mass/Vol]74 mg/dLMelbourne Regional Medical Center Physician GroupComment on above:Result Comment: Random Glucose Reference Range is dependent on time and content of last meal. Glucose of more than 200 mg/dL in a nonstressed, ambulatory subject supports the diagnosis of Diabetes Kay litus.PERFORMED BY:[address] [address] [address] [place], [place] [phone] MEDICAL YECENIA METCALF M.D.Performed By: #### GLULS ####Point of Care testing,Glucose [Mass/Vol]64 mg/dLMelbourne Regional Medical Center Physician GroupComment on above:Result Comment: Random Glucose Reference Range is dependent on time and content of last meal. Glucose of more than 200 mg/dL in a nonstressed, ambulatory subject supports the diagnosis of Diabetes Mellitus.PERFORMED BY:[address] [place], [place] [phone] MEDICAL DIRECTORYAMINI METCALF M.D.Performed By: #### GLULS ####Point of Care testing,Glucose [Mass/volume] in Serum or PlasmaOrdered By: Angie Benavides on 33-67-4510Obkhqxc [Mass/Vol]42 mg/dL Off scale oxg06-260ZmabspbwtCorey HospitalComment on above:Critical Result Called to and read back by: CONSTANTINO SKELTON at: 05/06/2025 00:21:03 by:CGADA recommended reference rangeRandom Glucose Reference Range is dependent on time and content of last meal. Glucose of more than 200 mg/dL in a nonstressed, ambulatory subject supports the diagnosis of Diabetes Mellitus. Result Comment: Critical Result Called to and read back by: CONSTANTINO SKELTON at: 05/06/2025 00:21:03 by:CG Random Glucose Reference Range is dependent on time and content of last meal. Glucose of more than 200 mg/dL in a nonstressed, ambulatory subject supports the diagnosis of Diabetes Mellitus. ADA recommended reference rangePerformed By: #### CBC, CMP ####[address] [address] USAHematocrit [Volume Fraction] of Blood by Automated countOrdered By: Angie Benavides on 58-00-4403Lesswigatf (Bld) [Volume fraction]36.4 %Low38.8-50.0Corey HospitalComment on above:Performed By: #### CBC, CMP ####[address] [address] USAHemoglobin [Mass/volume] in BloodOrdered By: Angie Benavides on 06-64-1992Icktxepzti (Bld) [Mass/Vol]12.0 g/dLLow13.0-17.0Corey HospitalComment on above:Performed By: #### CBC, CMP ####[address] [address] [place] Leukocytes [#/volume] corrected for nucleated erythrocytes in Blood by Automated counOrdered By: Angie Benavides on 72-84-2642ULJ corrected for nucl RBC Auto (Bld) [#/Vol]4.7 10*3/uL4.1-10.5FMansfield HospitalLeukocytes [#/volume] in Blood by Automated countOrdered By: Angie Jacintoa on 13-29-9981JPA (Bld) [#/Vol]4.7 10*3/uLNormal4.1-10.5FMansfield HospitalComment on above:Performed By: #### CBC, CMP ####[place] [address] USALymphocytes [#/volume] in Blood by Automated countOrdered By: Angie Benavides on 01-07-4987Uvxppyuqwji (Bld) [#/Vol]0.8 10*3/uL Low1.00-4.8Corey HospitalComment on above:Performed By: #### CBC, CMP ####[place] [id number] USALymphocytes/100 leukocytes in Blood by Automated countOrdered By: Angie Benavides on 40-63-7366Jvbaofkapmn/100 WBC (Bld)17.1 %Normal.Corey HospitalComment on above:Performed By: #### CBC, CMP ####[address] [address] [facility] CENTERMCH [Entitic mass] by Automated countOrdered By: Angie Benavides on 79-54-1027ZHF (RBC) [Entitic mass] 28.8 jqSxvkdi10.5-35.2FMansfield HospitalComment on above: Performed By: #### CBC, CMP ####[address] [address] [facility]UGOH[facility] Auto (RBC) [Mass/Vol]Ordered By: Angie Benavides on 16-29-2712IZFI (RBC) [Mass/Vol]33.0 g/dL32.5-35.6FMansfield HospitalMCV [Entitic volume] by Automated countOrdered By: Angie Benavides on 45-34-5345ZLJ (RBC) [Entitic vol]87.4 kBJpjxtd01.5-101Corey HospitalComment on above:Performed By: #### CBC, CMP ####[facility] [address] [place] [address] USAMonocyte distribution width [Entitic volume] in Blood by AutomatedOrdered By: Angie Benavides on 05-05-2025 Monocyte distribution width Auto (Bld) [Entitic vol]17.15 %0.00-20.00Corey HospitalMonocytes [#/volume] in Blood by Automated countOrdered By: Angie Benavides on 84-51-5376Wwylafqbk (Bld) [#/Vol]0.3 10*3/uLNormal0.0-0.8 Corey HospitalComment on above:Performed By: #### CBC, CMP ####[facility] [address] [place], [place] [address] [place] Monocytes/100 leukocytes in Blood by Automated countOrdered By: Angie Benavides on 04-60-2783Cnwqabliz/100 WBC (Bld)6.9 %Normal.[facility] Comment on above:Performed By: #### CBC, CMP ####[facility] [id number] [place], [place] [address] USANeutrophils [#/volume] in Blood by Automated countOrdered By: Angie Benavides on 24-05-0332Blhyuwxmrek (Bld) [#/Vol] 3.2 10*3/uLNormal1.8-7.7FMansfield HospitalComment on above: Performed By: #### CBC, CMP ####[place] [address] USANeutrophils/100 leukocytes in Blood by Automated countOrdered By: Angie Benavides on 08-20-1558Svypeloxulw/100 WBC (Bld)68.8 % Normal.Corey HospitalComment on above:Performed By: #### CBC, CMP ####[address] [address] USANo Panel InformationOrdered By: Angie Benavides on 54-46-9267Xlmztsjc Creatinine Clearance (Chem26.42[facility] Hospital26.42Corey HospitalNucleated erythrocytes [Presence] in Blood by Automated count Ordered By: Angie Benavides on 03-72-2219Tuwcuprlj RBC Auto Ql (Bld)0.2 /100{WBC} 0-0.5FMansfield HospitalPlatelet mean volume [Entitic volume] in Blood by Automated countOrdered By: Angie Benavides on 24-89-5657Porxamxc mean volume (Bld) [Entitic vol]8.6 fLNormal6.6-10.1FMansfield Hospital Comment on above:Performed By: #### CBC, CMP ####[address] [address] USAPlatelets [#/volume] in Blood by Automated countOrdered By: Angie Benavides on 28-39-0971Mhdxbisuf (Bld) [#/Vol]142 10*3/vKXju840-974LxbubjznoCorey HospitalComment on above:Performed By: #### CBC, CMP ####[address] [address] USAPotassium [Moles/volume] in Serum or PlasmaOrdered By: Angie Benavides on 43-96-6113Exjwrguvt [Moles/Vol]3.5 mmol/LNormal3.5-5.1FMansfield HospitalComment on above:Performed By: #### CBC, CMP ####[address] [address] USAProtein [Mass/volume] in Serum or PlasmaOrdered By: Angie Benavides on 88-22-7310Refngmc [Mass/Vol]8.2 g/dLNormal6.4-8.9Corey HospitalComment on above:Performed By: #### CBC, CMP ####[address] [address] USASerum globulin measurement by calculation (mass/volume)Ordered By: Angie Benavides on 81-35-5259Llkwmfoc (S) [Mass/Vol]3.4 g/dLNormKettering Health TroyComment on above:Performed By: #### CBC, CMP ####[address] [address] USASerum or plasma albumin/globulin mass ratioOrdered By: Angie Benavides on 05-05-2025 Albumin/Globulin [Mass ratio]1.4 {ratio}[facility] Comment on above:Performed By: #### CBC, CMP ####[address] [address] USASerum or plasma anion gap determinationOrdered By: Angie Benavides on 45-86-3940Iuwgy gap [Moles/Vol]15.2 mmol/LHigh6.0-15.0Corey HospitalComment on above:Performed By: #### CBC, CMP ####[address] [address] USASodium [Moles/volume] in Serum or PlasmaOrdered By: Angie Benavides on 00-43-2847Smqdcj [Moles/Vol]135 mmol/JLdm758-603CspfhrrwbCorey HospitalComment on above:Performed By: #### CBC, CMP ####[address] [address] USAThyrotropin [Units/volume] in Serum or PlasmaOrdered By: Angie Benavides on 72-36-5733OYA Qn2.93 m[IU]/LNormal 0.45-5.33Corey HospitalComment on above:Result Comment: PERFORMED BY:[address] [place], [place] [phone] MEDICAL DIRECTORYAMINI METCALF M.D.Performed By: #### TSH3 ####[facility] [address] [place] [address] USAUrea nitrogen [Mass/volume] in Serum or PlasmaOrdered By: Angie Benavides on 88-66-1137Ppri nitrogen [Mass/Vol]18 mg/dLNormal03-12Corey HospitalComment on above:Performed By: #### CBC, CMP ####[facility] [address] [place] [address] USATRANSTHORACIC ECHO (TTE) LIMITEDon 73-19-0867CMBHZEBEPHLGP ECHO (TTE) LIMITEDChildren'S [place] [address] [place] [address], [address], [place] [address] TRANSTHORACIC ECHOCARDIOGRAM REPORT Patient Name: YOEL TAMAYO Reading Physician: [id number] Iraida Byrd MD Study Date: 04/15/2025 Ordering Provider: [id number] BRIANNA GOMEZ MRN/PID: [id number] Fellow: Nurse: Date of /Age: 7 1985 Dock Worker: Doretha hogan RD, RVT Gender Assigned at Additional Staff: : Height: 182.88 cm Admit Date: Weight: 77.11 kg Admission Status: Outpatient BSA / BMI: 1.99 m2 / 23.06 Department Location: [facility] kg/m2 [place] Blood Pressure: 174 /80 mmHg Study Type: TRANSTHORACIC ECHO (TTE) LIMITED Diagnosis/ICD: Nonrheumatic mitral (valve) insufficiency-I34.0 Indication: CAD, Diabetes, Dyspnea on Exertion, HTN, Hyperlipidemia, VA and PTCA-11/07/2024 and 02/08/2025, POC-Kidney Transplant, CKD-on Dialysis CPT Codes: Echo Limited-17149 Study Detail: The following Echo studies were [...] Normal Ranges: LVOT Diameter: 2.06 cm (1.8-2.4cm) 28557 Iraida Byrd MD Electronically signed on 04/15/2025 [...] of the mitral regurgitation appears to have worsened.[facility] CenterUS Heart TransthoracicOrdered By: Iraida Byrd on 20-17-8515MM vol index A/L56.1 ml/o8XbpwkfutmgSuburban [facility] Work Phone: LV A4C EF32.0[facility] Work Phone: LV Biplane EF45 %[facility] Work Phone: LV EF58 %[facility] Work Phone: LVIDd5.02 [facility] Work Phone: LVOT diam2.06 [facility] Work Phone: [facility] Work Phone: US Heart Transthoracicon 04-15-2025 CONCLUSIONS: 1. The left ventricular systolic function [...] of the mitral regurgitation appears to have worsened.[facility] Heart [place] [address] [facility], [address], [place] [address] TRANSTHORACIC ECHOCARDIOGRAM REPORT Patient Name: YOEL TAMAYO Reading Physician: [id number] Iraida Byrd MD Study Date: 04/15/2025 Ordering Provider: [id number] BRIANNA GOMEZ MRN/PID: [id number] Fellow: Nurse: Date of /Age: 7 1985 Dock Worker: Doretha hogan RDCS, RVT Gender Assigned at Additional Staff: : Height: 182.88 cm Admit Date: Weight: 77.11 kg Admission Status: Outpatient BSA / BMI: 1.99 m2 / 23.06 Department Location: [facility] kg/m2 [place] Blood Pressure: 174 /80 mmHg Study Type: TRANSTHORACIC ECHO (TTE) LIMITED Diagnosis/ICD: Nonrheumatic mitral (valve) insufficiency-I34.0 Indication: CAD, Diabetes, Dyspnea on Exertion, HTN, Hyperlipidemia, VA and PTCA-11/07/2024 and 02/08/2025, POC-Kidney Transplant, CKD-on Dialysis CPT Codes: Echo Limited-51866 Study Detail: The following Echo studies were [...] Normal Ranges: LVOT Diameter: 2.06 cm (1.8-2.4cm) [id number] Iraida Byrd MD Electronically signed (more content not included)...Iraida Carlos MD - 04/15/[address], [address] [address] TRANSTHORACIC ECHOCARDIOGRAM REPORT Patient Name: YOEL Armando Physician: [id number] Iraida Byrd MD Study Date: 04/15/2025 Ordering Provider: [id number] BRIANNA GOMEZ MRN/PID: [id number] Fellow: Nurse: Date of /Age: 7 1985 / 40 Dock Worker: Doretha hogan RD, RVT Gender Assigned at M Additional Staff: : Height: 182.88 cm Admit Date: Weight: 77.11 kg Admission Status: Outpatient BSA / BMI: 1.99 m2 / 23.06 Department Location: [facility] kg/m2 [place] Blood Pressure: 174 /80 mmHg Study Type: TRANSTHORACIC ECHO (TTE) LIMITED Diagnosis/ICD: Nonrheumatic mitral (valve) insufficiency-I34.0 Indication: CAD, Diabetes, Dyspnea on Exertion, HTN, Hyperlipidemia, VA and PTCA-11/07/2024 and 02/08/2025, POC-Kidney Transplant, CKD-on Dialysis CPT Codes: Echo Limited-22176 Study Detail: The following Echo studies were [...] Normal Ranges: LVOT Diameter: 2.06 cm (1.8-2.4cm) 48779 Iraida Byrd MD Electronically signed on 04/15/2025 [...] the mitral regurgitation appears to have worsened. [facility] Work Phone: basophils Auto (Bld) [#/Vol]Ordered By: Kishore Forte on 78-64-2802Gccfgmqml (Bld) [#/Vol]0.1 10 3/uL0.0-0.1FMansfield HospitalBasophils/100 WBC Auto (Bld)Ordered By: Kishore Forte on 04-12-2025 Basophils/100 WBC (Bld)1.3 %0.2-2.0[facility] Eosinophils/100 WBC Auto (Bld)Ordered By: Kishore Forte on 04-12-2025 Eosinophils/100 WBC (Bld)4.7 %0.9-7.0[facility] Erythrocyte distribution width Auto (RBC) [Ratio]Ordered By: Kishore Forte on 74-97-7223Nxppmfldzjo distribution width (RBC) [Ratio]21.6 %High11.0-15.0 Corey HospitalGlobulin Calc (S) [Mass/Vol]Ordered By: Vivek Ignacio on 74-60-4498Wkvpvdhh (S) [Mass/Vol]4.3 g/dLCorey HospitalGlomerular filtration rate (GFR) estimation in non- AmericanOrdered By: Vivek Ignacio on 56-57-1442FLB/1.73 sq M.predicted among non-blacks MDRD (S/P/Bld) [Vol rate/Area]16 mL/min/{1.73_m2} Low>=60 mL/min/1.73m 2FMansfield HospitalHematocrit Auto (Bld) [Volume fraction]Ordered By: Kishore Forte on 88-51-8506Hefgrpstgn (Bld) [Volume fraction]33.4 %Low42.0-54.0Corey HospitalHemoglobin [Mass/volume] in BloodOrdered By: Kishore Forte on 74-11-7574Liakzltbku (Bld) [Mass/Vol]10.5 g/dLLow14.0-18.0Corey HospitalLaboratory - Chemistry and Chemistry - challengeOrdered By: Vivek Ignacio on 04-12-2025 Albumin [Mass/Vol]3.9 g/dL3.4-5.0Corey HospitalALP [Catalytic activity/Vol]66 U/Z23-267PuhhwgqgaCorey HospitalALT [Catalytic activity/Vol]14 U/GBkx32-38ZmtahdazqCorey HospitalAST [Catalytic activity/Vol]12 U/UAfj12-20JlytlfiqnCorey HospitalBilirubin [Mass/Vol] 0.7 mg/dL0.2-1.0Corey HospitalCalcium [Mass/Vol]8.7 mg/dL 8.5-10.1FMansfield HospitalChloride [Moles/Vol]102 mmol/L98-107 Corey HospitalCO2 [Moles/Vol]28.9 mmol/L21.0-32.0Corey HospitalCreatinine [Mass/Vol]4.20 mg/dLHigh0.70-1.30Corey HospitalGFR/1.73 sq M.predicted MDRD (S/P/Bld) [Vol rate/Area]19 mL/min/{1.73_m2}Low>=60 mL/min/1.73m 2FMansfield HospitalGlucose [Mass/Vol]154 mg/cERqqv06-049BaaygkkibCorey HospitalLactate [Moles/Vol]0.9 mmol/L0.4-2.0Corey HospitalPotassium [Moles/Vol]2.8 mmol/LCritically low3.5-5.1FMansfield Hospital Comment on above:RESULTS CALLED TO RAUL FLORENCE RN @BY Leslee Francis at 2211Protein [Mass/Vol]8.2 g/dL6.4-8.2FMary Rutan Hospitalodium [Moles/Vol]144 mmol/R932-799FdchyifcdCorey HospitalUrea nitrogen [Mass/Vol]20.0 mg/dLHigh7.0-18.0Corey HospitalUrea nitrogen/Creatinine [Mass ratio]4.8 mg/mgCorey Hospital Laboratory - Hematology and Cell countsOrdered By: Kishore Forte on 04-12-2025 Immature granulocytes/100 WBC (Bld)0.2 %0.0-0.5FMansfield Hospital Leukocytes [#/volume] corrected for nucleated erythrocytes in Blood by Automated counOrdered By: Kishore Forte on 47-68-2364MFE corrected for nucl RBC Auto (Bld) [#/Vol]4.5 10 3/uL4.0-11.0Corey HospitalLymphocytes Auto (Bld) [#/Vol]Ordered By: Kishore Forte on 91-69-4346Fzskcriovbj (Bld) [#/Vol]1.0 10 3/uLLow1.2-3.8Corey HospitalLymphocytes/100 WBC Auto (Bld)Ordered By: Kishore Reesjameel on 87-59-6837Efkzhruvxvl/100 WBC (Bld)21.6 %20.5-60.0[facility] HospitalH Auto (RBC) [Entitic mass]Ordered By: Kishore Reanna on 52-60-5021CWN (RBC) [Entitic mass]27.9 pg25.9-34.0Corey HospitalMCHC Auto (RBC) [Mass/Vol]Ordered By: Kishore Reanna on 56-53-6943GIBV (RBC) [Mass/Vol]31.4 g/dL29.9-35.2FMansfield HospitalMCV Auto (RBC) [Entitic vol]Ordered By: Kishore Reanna on 11-53-5878KZQ (RBC) [Entitic vol]88.6 fL80.0-94.0Corey HospitalMonocytes Auto (Bld) [#/Vol]Ordered By: Kishore Mercadonava on 54-27-8631Pldwccgqq (Bld) [#/Vol] 0.3 10 3/uL0.3-0.8Corey HospitalMonocytes/100 WBC Auto (Bld) Ordered By: Kishore Mercadonava on 17-08-1167Jvdyjzdmh/100 WBC (Bld)6.7 %1.7-12.0 Corey HospitalNeutrophils Auto (Bld) [#/Vol]Ordered By: Kishore Mercadonava on 30-25-6978Tzldolkbqay (Bld) [#/Vol]3.0 10 3/uL1.4-6.5FMansfield HospitalNeutrophils/100 WBC Auto (Bld)Ordered By: Kishore Mercadonava on 09-87-2796Jsmincactme/100 WBC (Bld)65.5 %43.0-75.0Corey HospitalNo Panel InformationOrdered By: Vivek Ignacio on 40-29-7079Q-Peptide 6.2 ng/mLAbnormal1.1-4.4FMansfield HospitalComment on above:C- Peptide reference interval is for fasting patients.Performed at: [facility] [employer] [id number] Director: Pablito Alexander PhD, Phone: [phone] I High Guuoxzrsvkd28.8 pg/mL4.0-76.1FMansfield HospitalComment on above:CUT-OFF POINTS HAVE BEEN ESTABLISHED BASED ON THE FOURTHUNIVERSAL DEFINITION OF MYOCARDIAL INFARCTION. THE UPPERREFERENCE LIMIT (URL) OF TROPONIN, DEFINED THE 99THPERCENTILE OF cTnI DISTRIBUTION IN A REFERENCE POPULATION,HAS BEEN CONFIRMED THE DECISION THRESHOLD FOR MIDIAGNOSIS.99TH PERCENTILE = 76.2 PG/MLNOTE: HIGH-SENSITIVITY TROPONIN ASSAY IS NOT INTENDED TO BEUSED IN ISOLATION BUT SHOULD BE INTERPRETED IN CONJUNCTIONWITH OTHER DIAGNOSTIC AND CLINICAL INFORMATION.6.2 ng/mLAbnormal 1.1-4.4FMansfield Hospital74.8 pg/mL4.0-76.1FMansfield Hospital0.9 mmol/L0.4-2.0[facility]3.9 g/dL3.4-5.0 [facility]66 U/B11-583FozsmlqntCorey Hospital14 U/XKxk20-32SlsixvajeCorey Hospital12 U/QXmu56-15UmfdsiwnfCorey Hospital4.8[facility]20.0 mg/dLHigh7.0-18.0 [facility]8.7 mg/dL8.5-10.1FMansfield Hospital102 mmol/M31-704ClewdyuxnCorey Hospital28.9 mmol/L21.0-32.0 [facility]4.20 mg/dLHigh0.70-1.30[facility]19Low>=60 mL/min/1.73m 2FMansfield Hospital154 mg/dL Uvau80-747FlgcrzqhxCorey Hospital2.8 mmol/LCritically low3.5-5.1 [facility]144 mmol/N797-470HfqbwxeiyCorey Hospital0.7 mg/dL0.2-1.0[facility]8.2 g/dL6.4-8.2FMansfield HospitalNo Panel InformationOrdered By: Kishore Reanna on 08-44-7975Joethutiydv # (Auto)0.2 10 3/uL0.0-0.7FMansfield HospitalImmature Granulocyte # (Auto)0.01 10 3/uL0.00-0.03[facility] Hospital0.2 10 3/uL0.0-0.7FMansfield Hospital0.01 10 3/uL 0.00-0.03[facility] Hospital0.2 %0.0-0.5FMansfield HospitalPlatelet mean volume Auto (Bld) [Entitic vol]Ordered By: Kishore Forte on 43-09-5247Tyvbvzop mean volume (Bld) [Entitic vol]10.1 fL9.5-13.5FMansfield HospitalPlatelets Auto (Bld) [#/Vol]Ordered By: Kishore Forte on 21-28-5862Wauvlwyqo (Bld) [#/Vol]125 10 3/uMKvf103-799TlmqedzphCorey HospitalRBC Auto (Bld) [#/Vol]Ordered By: Kishore Forte on 60-10-2540FRD (Bld) [#/Vol]3.77 10 6/uLLow4.70-6.10[facility]uder [facility] Hospitalerum or plasma albumin/globulin mass ratioOrdered By: Vivek Ignacio on 04-12-2025 Albumin/Globulin [Mass ratio]0.9 {ratio}[facility] Hospitalerum or plasma anion gap determinationOrdered By: Vivek Ignacio on 04-12-2025 Anion gap [Moles/Vol]15.9 mmol/LFMansfield HospitalUS AV Fistulaon 84-99-4644OY AV FistulaNormHCA Florida Suwannee Emergency Physician GroupBasophils Auto (Bld) [#/Vol]Ordered By: Denilson Gomez on 59-36-3248Ejuktyahq (Bld) [#/Vol]Automated basophil count0.0-0.2FMansfield HospitalBasophils [#/volume] in Blood by Automated countOrdered By: Denilson Gomez on 79-97-6247Zyjpypwcx (Bld) [#/Vol]0.1 10*3/uLNormal0.0-0.2FMansfield HospitalComment on above:Result Comment: PERFORMED BY:[place] [address] [address] [place], [place] [phone] MEDICAL DIRECTORYAMINI METCALF M.D.Performed By: #### PP, CBC, LIPID, LYTES, BUN, CREAT ####[place] [address] [place] [address] USABasophils/100 WBC Auto (Bld) Ordered By: Denilson Gomez on 36-28-8308Dpezniqnw/100 WBC (Bld)Automated basophil %. Corey HospitalBasophils/100 leukocytes in Blood by Automated countOrdered By: Denilson Gomez on 64-42-6345Mbvqypgoy/100 WBC (Bld)1.6 %Normal. Corey HospitalComment on above:Performed By: #### PP, CBC, LIPID, LYTES, BUN, CREAT ####[place] [address] [place] [address] USACarbon dioxide, total [Moles/volume] in Serum or PlasmaOrdered By: Denilson Gomez on 98-79-2215IT6 [Moles/Vol]Carbon dioxide, total [Moles/volume] in Serum or JxchtnFssk03.0-31.0[facility] CO2 [Moles/Vol]32.2 mmol/LHigh21.0-31.0Corey HospitalComment on above:Performed By: #### PP, CBC, LIPID, LYTES, BUN, CREAT ####[address] [address] USAChloride [Moles/volume] in Serum or PlasmaOrdered By: Denilson Gomez on 28-26-5197Mfppsclf [Moles/Vol]Chloride [Moles/volume] in Serum or YshvxtLiz45-154IpxuufigvCorey HospitalChloride [Moles/Vol]95 mmol/RYcc50-385NkrbhbkilCorey HospitalComment on above:Performed By: #### PP, CBC, LIPID, LYTES, BUN, CREAT ####[facility] [address] [place] [address] [place] Cholesterol [Mass/volume] in Serum or PlasmaOrdered By: Denilson Gomez on 01-19-2025 Cholesterol [Mass/Vol]Cholesterol [Mass/volume] in Serum or FaolkyCrs195-005 Corey HospitalComment on above:Chol less than 200 mg/dl low riskChol 201-239 mg/dl borderline riskChol 240 mg/dl and greater high risk Cholesterol [Mass/Vol]99 mg/gRRvd087-912CnwksindwCorey HospitalComment on above:Chol less than 200 mg/dl low riskChol 201-239 mg/dl borderline riskChol 240 mg/dl and greater high riskResult Comment: Chol less than 200 mg/dl low risk Chol 201-239 mg/dl borderline risk Chol 240 mg/dland greater high risk Performed By: #### PP, CBC, LIPID, LYTES, BUN, CREAT ####[address] [address] USACholesterol in HDL [Mass/volume] in Serum or PlasmaOrdered By: Denilson Gomez on 74-84-3697Ireiqqocatl in HDL [Mass/Vol]Serum or plasma high density lipoprotein (HDL) cholesterol yfhfsdgjyrf20-19Bflnaxxfm[address] [place], [place] [address]Comment on above:HDL CHOL ATP- III CLASSIFICATION Cardiovascular RiskHDL > or equal to 60 mg/dL LOWHDL < 40 mg/dL HIGHCholesterol in HDL [Mass/Vol]31 mg/xZVfmstd10-05Ahnjsagoq[address] [place], [place] [address]Comment on above:HDL CHOL ATP-III CLASSIFICATION Cardiovascular RiskHDL > or equal to 60 mg/dL LOWHDL < 40 mg/dL HIGHResult Comment: HDL CHOL ATP-III CLASSIFICATION Cardiovascular Risk HDL > or equal to 60 mg/dL LOW HDL < 40 mg/dL HIGHPerformed By: #### PP, CBC, LIPID, LYTES, BUN, CREAT ####[address] [address] USACholesterol in LDL Calc [Mass/Vol]Ordered By: Denilson Goemz on 14-82-6051Qkxhramcmnv in LDL [Mass/Vol] Cholesterol in LDL [Mass/volume] in Serum or Plasma by calculation0-100Corey HospitalComment on above:LDL ATP III CLASSIFICATIONLDL less than 100 mg/dL OptimalLDL 100-129 mg/dL Near or above hqnzttmSDL220-717 mg/dL Borderline highLDL 160-189 mg/dL HighLDL greater than 189 mg/dL Very high Cholesterol in LDL [Mass/Vol]60 mg/dL0-100[facility] Comment on above:LDL ATP III CLASSIFICATIONLDL less than 100 mg/dL OptimalLDL 100-129 mg/dL Near or above ufqvembLDO188-277 mg/dL Borderline highLDL 160-189 mg/dL HighLDL greater than 189 mg/dL Very highCholesterol in VLDL Calc [Mass/Vol]Ordered By: Denilson Gomez on 83-67-9761Eroblqytjei in VLDL [Mass/Vol] Cholesterol in VLDL [Mass/volume] in Serum or Plasma by calculationCorey HospitalCholesterol in VLDL [Mass/Vol]8 mg/dLCorey HospitalCoagulation Profileon 12-75-2216qHSM Coag (Bld) [Time]34.6 sNormal 25.1-36.5The [facility]cu Health Physician GroupComment on above:Result Comment: A hematocrit value greater than 55% may lead to inaccurate results in coagulation testing. Patients having hematocrit values >55% require a special collection tube for coagulation studies. Please contact the laboratory at [phone] for redraw instructions.PERFORMED BY:[facility] [place], [place] [phone] MEDICAL DIRECTORYAMINI METCALF M.D.Performed By: #### PP, CBC, LIPID, LYTES, BUN, CREAT ####[facility] [address] [place] [address] USAComplete Blood Count Auto Diff on 24-02-6469Yngy Corpuscular HGB Conc33.6 g/tDVmyqna88.5-35.6The [facility]cu Health Physician GroupComment on above:Performed By: #### PP, CBC, LIPID, LYTES, BUN, CREAT ####[facility] [place] [address] [place] NRBC%0.0 /100{WBC}Normal0-0.5The [facility] Physician [facility] River GulfportComment on above: Performed By: #### PP, CBC, LIPID, LYTES, BUN, CREAT ####[place] [address] USACreatinineon 01-19-2025 Estimated GFR12.503 mL/MinNoSampson Regional Medical Center Physician [facility] River GulfportComment on above: Performed By: #### PP, CBC, LIPID, LYTES, BUN, CREAT ####[place] [address] USACreatinine [Mass/volume] in Serum or PlasmaOrdered By: Denilson Gomez on 89-35-5079Ukrpwdqyhm [Mass/Vol] Creatinine [Mass/volume] in Serum or PlasmaHigh0.70-1.30Corey HospitalCreatinine [Mass/Vol]5.57 mg/dLHigh0.70-1.30Corey HospitalComment on above:Performed By: #### PP, CBC, LIPID, LYTES, BUN, CREAT ####[address] ECG 12 lead ECGon 08-43-2702UMM 12 lead ECGNoSampson Regional Medical Center Physician [facility] Eosinophils Auto (Bld) [#/Vol]Ordered By: Denilson Gomez on 95-31-3928Pvikmztujwy (Bld) [#/Vol]Automated eosinophil count0.0-0.45[facility] Eosinophils [#/volume] in Blood by Automated countOrdered By: Denilson Gomez on 00-94-2813Hpelplwmmha (Bld) [#/Vol]0.3 10*3/uLNormal0.0-0.45Corey HospitalComment on above:Performed By: #### PP, CBC, LIPID, LYTES, BUN, CREAT ####[address] Eosinophils/100 WBC Auto (Bld)Ordered By: Denilson Gomez on 86-61-9878Ptwojdktyyb/100 WBC (Bld)Automated eosinophil %.[facility] Eosinophils/100 leukocytes in Blood by Automated countOrdered By: Denilson Gomez on 67-96-8717Vltykuxntfk/100 WBC (Bld)4.6 %Normal.[facility] Comment on above:Performed By: #### PP, CBC, LIPID, LYTES, BUN, CREAT ####[place] [address] [place] [id number] [place] Erythrocyte distribution width Auto (RBC) [Ratio]Ordered By: Denilson Gomez on 50-73-3703Vvjxwqhogon distribution width (RBC) [Ratio]Erythrocyte distribution width [Ratio] by Automated count12.0-14.8[facility] Erythrocyte distribution width [Ratio] by Automated countOrdered By: Denilson Gomez on 74-17-5381Hogpgzqysfy distribution width (RBC) [Ratio]14.1 %Ubkdxh40.0-14.8 Corey HospitalComment on above:Performed By: #### PP, CBC, LIPID, LYTES, BUN, CREAT ####[place] [address] USAErythrocytes [#/volume] in Blood by Automated count Ordered By: Denilson Gomez on 98-45-8904MVR (Bld) [#/Vol]4.22 10*6/uLNormal3.90-5.60 Corey HospitalComment on above:Performed By: #### PP, CBC, LIPID, LYTES, BUN, CREAT ####[place] [address] USAHematocrit Auto (Bld) [Volume fraction]Ordered By: Denilson Gomez on 49-44-2774Ckrzodllei (Bld) [Volume fraction]Hematocrit [Volume Fraction] of Blood by Automated bzkmuSbw23.8-50.0Corey HospitalHematocrit [Volume Fraction] of Blood by Automated countOrdered By: Denilson Goemz on 95-46-2919Glmupnnihu (Bld) [Volume fraction]32.6 %Low38.8-50.0 Corey HospitalComment on above:Performed By: #### PP, CBC, LIPID, LYTES, BUN, CREAT ####[address] [place] [address] USAHemoglobin [Mass/volume] in BloodOrdered By: Denilson Gomez on 99-62-5871Toeqhaplky (Bld) [Mass/Vol]Hemoglobin [Mass/volume] in BloodLow 13.0-17.0Corey HospitalHemoglobin (Bld) [Mass/Vol]10.9 g/dL Low13.0-17.0Corey HospitalComment on above:Performed By: #### PP, CBC, LIPID, LYTES, BUN, CREAT ####[facility] [place] [address] USAINR in Platelet poor plasma by Coagulation assay Ordered By: Denilson Gomez on 07-19-7438OJM Coag (PPP) [Relative time]INR in Platelet poor plasma by Coagulation assayCorey HospitalComment on above:INR Therapeutic Range A) Pre- and Peroperative OAT started two weeks before surgery. NOT HIP SURGERY: 1.5 - 2.5 HIP SURGERY: 2 - 3B) Primary and secondary prevention of venous THROMBOSIS: 2 - 3C) Active venous thrombosis, pulmonary embolismand prevention of recurrent venous thrombosis: 2 - 3D) Preve ntion of arterial thromboembolismincluding patients with mechanical heart valves: 3 - 4.5INR Coag (PPP) [Relative time]1.2 {INR}NormalCorey HospitalComment on above:INR Therapeutic Range A) Pre- and Peroperative OAT started two weeks before surgery. NOT HIP SURGERY: 1.5 - 2.5 HIP SURGERY: 2 - 3B) Primary and secondary prevention of venous THROMBOSIS: 2 - 3C) Active venous thrombosis, pulmonary embolismand prevention of recurrent venous thrombosis: 2 - 3D) Prevention of arterial thromboembolismincluding patients with mechanical heart valves: 3 - 4.5Result Comment: INR Therapeutic Range A) Pre- and Peroperative OAT started two weeks before surgery. NOT HIP SURGERY: 1.5 - 2.5 HIP SURGERY: 2 - 3 B) Primary and secondary prevention of venous THROMBO SIS: 2 - 3 C) Active venous thrombosis, pulmonary embolism and prevention of recurrent venous thrombosis: 2 - 3 D) Prevention of arterial thromboembolism including patients with mechanical heart valves: 3 - 4.5Performed By: #### PP, CBC, LIPID, LYTES, BUN, CREAT ####[facility] [place] [address] USALeukocytes [#/volume] corrected for nucleated erythrocytes in Blood by Automated counOrdered By: Denilson Gomez on 84-09-2467UUO corrected for nucl RBC Auto (Bld) [#/Vol]Leukocytes [#/volume] corrected for nucleated erythrocytes in Blood by Automated coun4.1-10.5FMansfield HospitalWBC corrected for nucl RBC Auto (Bld) [#/Vol]5.4 10*3/uL4.1-10.5 Corey HospitalLeukocytes [#/volume] in Blood by Automated countOrdered By: Denilson Gomez on 31-03-7868XEC (Bld) [#/Vol]5.4 10*3/uLNormal 4.1-10.5FMansfield HospitalComment on above:Performed By: #### PP, CBC, LIPID, LYTES, BUN, CREAT ####[place] [address] [place] [id number] USALipid Panelon 26-98-2629DKV Cholesterol,Nnjxyhppth17 mg/dLNormal0-100The [facility]cu Health Physician GroupComment on above:Result Comment: LDL ATP III CLASSIFICATION LDL less than 100 mg/dL Optimal LDL 100-129 mg/dL Near or above optimal LDL 130-159 mg/dL Borderline high LDL 160-189 mg/dL High LDL greater than 189 mg/dL Very highPerformed By: #### PP, CBC, LIPID, LYTES, BUN, CREAT ####[place] [id number] USATriglyceride w/Nbckdr45 mg/dLNormal0-149The [facility]cu Health Physician GroupComment on above:Result Comment: TRIG ATP III CLASSIFICATION TRIG less than 150 mg/dL Normal TRIG 150-199 mg/dL Borderline high TRIG 200-500 mg/dL High TRIG greater than 500 mg/dL Very high Standard traceable to the Center for Disease Conrtrol and Prevention (CDC) test method.Performed By: #### PP, CBC, LIPID, LYTES, BUN, CREAT ####[place] [address] [place] [id number] [place] VLDL CHOLESTEROL8 mg/dLNoSampson Regional Medical Center Physician GroupComment on above: Performed By: #### PP, CBC, LIPID, LYTES, BUN, CREAT ####[place] [address]yes StreetLymphocytes Auto (Bld) [#/Vol] Ordered By: Denilson Gomez on 49-48-4614Iiavulonjon (Bld) [#/Vol]Lymphocytes [#/volume] in Blood by Automated countLow1.00-4.8Corey HospitalLymphocytes [#/volume] in Blood by Automated countOrdered By: Denilson Gomez on 97-22-2530Jpfvcwljdvv (Bld) [#/Vol]0.9 10*3/uLLow1.00-4.8Corey HospitalComment on above:Performed By: #### PP, CBC, LIPID, LYTES, BUN, CREAT ####[place] [id number] Lymphocytes/100 WBC Auto (Bld)Ordered By: Denilson Gomez on 79-67-1583Twalvleojtb/100 WBC (Bld)Lymphocytes/100 leukocytes in Blood by Automated count.[facility]y HospitalLymphocytes/100 leukocytes in Blood by Automated count Ordered By: Denilson Gomez on [id number]/100 WBC (Bld)16.2 %Normal. Corey HospitalComment on above:Performed By: #### PP, CBC, LIPID, LYTES, BUN, CREAT ####[place] [id number] [facility] [place] (RBC) [Entitic mass]Ordered By: Denilson Gomez on [id number] (RBC) [Entitic mass]MCH [Entitic mass] by Automated countLow 27.5-35.2FSelect Medical [facility] [Entitic mass] by Automated count Ordered By: Dneilson Gomez on [id number] (RBC) [Entitic mass]26.0 pgLow27.5-35.2 Corey HospitalComment on above:Performed By: #### PP, CBC, LIPID, LYTES, BUN, CREAT ####[place] [address] [place] [id number] [facility] Auto (RBC) [Mass/Vol]Ordered By: Denilson Gomez on 67-93-5987ZOFG (RBC) [Mass/Vol]MCHC [Mass/volume] by Automated count32.5-35.6 [facility] HospitalHC (RBC) [Mass/Vol]33.6 g/dL32.5-35.6 [facility] HospitalV Auto (RBC) [Entitic vol]Ordered By: Denilson Gomez on 21-05-7107WLS (RBC) [Entitic vol]MCV [Entitic volume] by Automated ogkgiBdw37.5-101[facility] HospitalV [Entitic volume] by Automated countOrdered By: Denilson Gomez on 51-83-2481MFI (RBC) [Entitic vol]77.4 fL Low83.-101Corey HospitalComment on above:Performed By: #### PP, CBC, LIPID, LYTES, BUN, CREAT ####[place] [address] [place] [id number] USAMonocytes Auto (Bld) [#/Vol]Ordered By: Denilson Gomez on 68-27-1852Faytrwrht (Bld) [#/Vol]Automated blood monocyte count0.0-0.8Corey HospitalMonocytes [#/volume] in Blood by Automated countOrdered By: Denilson Gomez on 93-94-9712Kfuvuyfys (Bld) [#/Vol]0.5 10*3/uLNormal0.0-0.8 Corey HospitalComment on above:Performed By: #### PP, CBC, LIPID, LYTES, BUN, CREAT ####[place] [address] [place] [id number] USAMonocytes/100 WBC Auto (Bld)Ordered By: Denilson Gomez on 03-14-4991Ozrpgntqo/100 WBC (Bld)Automated monocyte %.Corey HospitalMonocytes/100 leukocytes in Blood by Automated countOrdered By: Denilson Gomez on 82-89-6293Kqucedxir/100 WBC (Bld)9.3 %Normal.Corey HospitalComment on above:Performed By: #### PP, CBC, LIPID, LYTES, BUN, CREAT ####[facility] Neutrophils Auto (Bld) [#/Vol]Ordered By: Denilson Gomez on 60-31-6217Corytrgyglj (Bld) [#/Vol]Neutrophils [#/volume] in Blood by Automated count1.8-7.7FMansfield HospitalNeutrophils [#/volume] in Blood by Automated countOrdered By: Denilson Gomez on 06-44-1391Ixrogugetgq (Bld) [#/Vol]3.7 10*3/uLNormal1.8-7.7 Corey HospitalComment on above:Performed By: #### PP, CBC, LIPID, LYTES, BUN, CREAT ####[place] [address] [place] [address] USANeutrophils/100 WBC Auto (Bld)Ordered By: Denilson Gomez on 58-59-4478Jayizvwzwuq/100 WBC (Bld)Automated neutrophil %.Corey HospitalNeutrophils/100 leukocytes in Blood by Automated countOrdered By: Denilson Gomez on 02-14-1129Hvsjmnjncrb/100 WBC (Bld)68.3 %Normal.Corey HospitalComment on above:Performed By: #### PP, CBC, LIPID, LYTES, BUN, CREAT ####[address] No Panel InformationOrdered By: Denilson Gomez on 70-81-9001Trmhoedlj GFR (CKD-EPI) 12.503 mL/MinCorey HospitalPhaacy Creatinine Clearance (ChemN/[facility] Medical CenterNucleated erythrocytes [Presence] in Blood by Automated countOrdered By: Denilson Gomez on 58-38-4447Zownshrcd RBC Auto Ql (Bld)Nucleated erythrocytes [Presence] in Blood by Automated count0-0.5 Corey HospitalNucleated RBC Auto Ql (Bld)0.0 /100{WBC}0-0.5 Corey HospitalPlatelet mean volume Auto (Bld) [Entitic vol] Ordered By: Denilson Gomez on 29-51-0419Irhlqgeh mean volume (Bld) [Entitic vol] Platelet mean volume [Entitic volume] in Blood by Automated count6.6-10.1 Corey HospitalPlatelet mean volume [Entitic volume] in Blood by Automated countOrdered By: Denilson Gomez on 04-11-2558Bctjvkan mean volume (Bld) [Entitic vol]8.1 fLNormal6.6-10.1FMansfield HospitalComment on above:Performed By: #### PP, CBC, LIPID, LYTES, BUN, CREAT ####[place] [address] USAPlatelets Auto (Bld) [#/Vol]Ordered By: Denilson Gomez on 51-54-8778Ynieyjbsz (Bld) [#/Vol]Platelets [#/volume] in Blood by Automated nyugqAyz978-435Gziduhuhe[address] [place], [place] [address]Platelets [#/volume] in Blood by Automated countOrdered By: Denilson Gomez on 03-29-6213Fyeuzbdce (Bld) [#/Vol]104 10*3/mOGud175-789Snsmtmm[address] [place], [place] [address]Commun[facility] healthcare [facility] on above:Performed By: #### PP, CBC, LIPID, LYTES, BUN, CREAT ####[place] [address] [place] Potassium [Moles/volume] in Serum or PlasmaOrdered By: Denilson Gomez on 01-19-2025 Potassium [Moles/Vol]Potassium [Moles/volume] in Serum or Plasma3.5-5.1FMansfield HospitalPotassium [Moles/Vol]3.5 mmol/LNormal3.5-5.1FMansfield HospitalComment on above:Performed By: #### PP, CBC, LIPID, LYTES, BUN, CREAT ####[place] [id number] USAProthrombin time (PT)Ordered By: Denilson Gomez on 25-66-2843WH Coag (PPP) [Time]Prothrombin time (PT)High9.0-12.9[facility] Comment on above:A hematocrit value greater than 55% may lead to inaccurate results in coagulation testing. Patientshaving hematocrit values >55% require a special collection tube for coagulation studies. Please contact the laboratory at [phone] for redraw instructions.PT Coag (PPP) [Time]13.3 sHigh9.0-12.9 Corey HospitalComment on above:A hematocrit value greater than 55% may lead to inaccurate results in coagulation testing. Patientshaving hematocrit values >55% require a special collection tube for coagulation studies. Please contact the laboratory at [phone] for redraw instructions. Result Comment: A hematocrit value greater than 55% may lead to inaccurate results in coagulation testing. Patients having hematocrit values >55% require a special collection tube for coagulation studies. Please contact the laboratory at [phone] for redraw instructions.Performed By: #### PP, CBC, LIPID, LYTES, BUN, CREAT ####[facility] [address] [place] [address] USARBC Auto (Bld) [#/Vol]Ordered By: Denilson Gomez on 07-54-8673HEV (Bld) [#/Vol]Erythrocytes [#/volume] in Blood by Automated count3.90-5.60[facility]uder [facility] Hospitalerum or plasma anion gap determinationOrdered By: Deinlson Gomez on 83-38-1314Ehied gap [Moles/Vol]Serum or plasma anion gap determination6.0-15.0Corey HospitalAnion gap [Moles/Vol]12.3 mmol/LNormal6.0-15.0Corey HospitalComment on above:Performed By: #### PP, CBC, LIPID, LYTES, BUN, CREAT ####[facility] [address] [place] [address] USASerum or plasma total cholesterol/high density lipoprotein (HDL) cholesterol mass ratOrdered By: Denilson Gomez on 50-14-3200Lcbpanhzynm.total/Cholesterol in HDL [Mass ratio]Serum or plasma total cholesterol/high density lipoprotein (HDL) cholesterol mass rat<5.0Corey HospitalCholesterol.total/Cholesterol in HDL [Mass ratio]3.2 {ratio}Normal<5.0Corey HospitalComment on above:Result Comment: PERFORMED BY:[facility] [place], [place] [phone] MEDICAL DIRECTORYAMINI METCALF M.D.Performed By: #### PP, CBC, LIPID, LYTES, BUN, CREAT ####[facility] [address] [place] [address] USASodium [Moles/volume] in Serum or PlasmaOrdered By: Denilson Gomez on 28-94-8556Ukuzuf [Moles/Vol]Sodium [Moles/volume] in Serum or Ypgxrj427-710HmlgnyociMagruder Memorial Hospitalodium [Moles/Vol]136 mmol/NUidupn112-566OgtsyduytCorey HospitalComment on above:Performed By: #### PP, CBC, LIPID, LYTES, BUN, CREAT ####[facility] [place] [address] USATriglyceride [Mass/volume] in Serum or PlasmaOrdered By: Denilson Gomez on 89-30-8319Rgfpnpbdfecb [Mass/Vol]Triglyceride [Mass/volume] in Serum or Plasma0-149Corey HospitalComment on above:TRIG ATP III CLASSIFICATIONTRIG less than 150 mg/dL NormalTRIG 150-199 mg/dL Borderline highTRIG 200-500 mg/dL High TRIG greater than 500 mg/dL Very highStandard traceable to the Center for Disease Conrtrol and Prevention (CDC) test method.Triglyceride [Mass/Vol]41 mg/dL0-149Corey HospitalComment on above:TRIG ATP III CLASSIFICATIONTRIG less than 150 mg/dL NormalTRIG 150-199 mg/dL Borderline highTRIG 200-500 mg/dL High TRIG greater than 500 mg/dL Very highStandard traceable to the Center for Disease Conrtrol and Prevention (CDC) test method.Urea nitrogen [Mass/volume] in Serum or Plasma Ordered By: Denilson Gomez on 05-25-9646Bsmq nitrogen [Mass/Vol]Urea nitrogen [Mass/volume] in Serum or PlasmaMarmet Hospital For Crippled Children7-25Corey HospitalUrea nitrogen [Mass/Vol]30 mg/dLMarmet Hospital For Crippled Children-Corey HospitalComment on above:Performed By: #### PP, CBC, LIPID, LYTES, BUN, CREAT ####[facility] [address] [place] [address] USAWBC Auto (Bld) [#/Vol]Ordered By: Denilson Gomez on 88-62-1999XBE (Bld) [#/Vol]Leukocytes [#/volume] in Blood by Automated count4.1-10.5FMansfield HospitalaPTT in Platelet poor plasma by Coagulation assayOrdered By: Denilson Gomez on 68-79-9499lEWZ Coag (PPP) [Time]Activated partial thromboplastin time (aPTT) in platelet poor plasma by coagulation a25.1-36.5FMansfield HospitalComment on above:A hematocrit value greater than 55% may lead to inaccurate results in coagulation testing. Patientshaving hematocrit values >55% require a special collection tube for coagulation studies. Please contact the laboratory at [phone] for redraw instructions.aPTT Coag (PPP) [Time]34.6 s25.1-36.5 Corey HospitalComment on above:A hematocrit value greater than 55% may lead to inaccurate results in coagulation testing. Patientshaving hematocrit values >55% require a special collection tube for coagulation studies. Please contact the laboratory at [phone] for redraw instructions. BASIC METABOLIC PANELon 54-92-7791Vcxcw gap [Moles/Vol]14 mmol/LNormal7-20 [facility] GlenbeighComment on above:Performed By: #### [id number] #### [facility] (BEAKER) [address] [place], [place] [address]Ktipnyr [Mass/Vol]8.9 mg/dLNormal8.6-10.3UnSt. Elizabeth HospitalComment on above:Performed By: #### [id number] #### [facility] (BEAKER) [address] [place], [place] [address]Tscwyabd [Moles/Vol]95 mmol/QHke83-041CghpbhouuzSt. Elizabeth HospitalComment on above:Performed By: #### [id number] #### [facility] ([facility]) [address] [place] [address]QR1 [Moles/Vol]29 mmol/CWuusmu88-88GcmonuzlxbSt. Elizabeth HospitalComment on above:Performed By: #### [id number] #### [facility] ([facility]) [address] [place] [address]Yvmhdaacqv [Mass/Vol]6.54 mg/dLHigh0.70-1.30UnSt. Elizabeth HospitalComment on above:Performed By: #### [id number] #### [facility] ([facility]) [address] [place] [address]HKKKJFYQDF FILTRATION RATE ML/MIN/1.73 SQ M.SZFOIOCXE46.3 mL/min/1.73m*2Low>60.0UnSt. Elizabeth HospitalComment on above:Result Comment: The [facility]???s estimated glomerular filtration rate (eGFR) will no [...] potential consequences that do not disproportionately affect anyone group of individuals.Performed By: #### [id number] #### [facility] ([facility]) [address] [place] [address]Nlmfces [Mass/Vol]353 mg/aMGruk46-248IdutpgwmneSt. Elizabeth HospitalComment on above:Performed By: #### [id number] #### [facility] ([facility]) [address] [place] [place] [address]Snftdxmtt [Moles/Vol]4.1 mmol/LNormal3.5-5.1UnSt. Elizabeth HospitalComment on above:Performed By: #### [id number] #### [facility] ([facility]) [address] [place] [address]Goaygh [Moles/Vol]134 mmol/NTqz309-188NlveqtufbnSt. Elizabeth HospitalComment on above:Performed By: #### [id number] #### [facility] ([facility]) [address] [place], [place] [address]Dhrp nitrogen [Mass/Vol]37 mg/dLHigh7-25UnSt. Elizabeth HospitalComment on above:Performed By: #### [id number] #### [facility] ([facility]) [address] [place], [place] [address]XFLJ NITROGEN/CREATININE (MASS RATIO) IN SER/PLAS5.7Normal [facility] GlenbeighComment on above:Performed By: #### [id number] #### [facility] ([facility]) [address] [place] [address]FOUrt 39-52-1688Joqrjgemjgy distribution width (RBC) [Ratio]14.1 %Zyflmj59.5-15.0UnSt. Elizabeth HospitalComment on above:Performed By: #### [id number] #### [facility] ([facility]) [address] [place], [place] [address]IMBPXTNZVDW MEAN CORPUSCULAR HEMOGLOBIN CONCENTRATION (G/DL) BY SIAGZBBJK84.5 g/dLLow32.0-35.0UnSt. Elizabeth HospitalComment on above:Performed By: #### [id number] #### [facility] ([facility]) [address]ENT[address] [place], [place] [address]Yjzwpkckef (Bld) [Volume fraction]37.2 %Low39.0-50.0UnSt. Elizabeth HospitalComment on above:Performed By: #### [id number] #### [facility] ([facility]) [address] [place], [place] [address]Jmrklcpxlj (Bld) [Mass/Vol]11.7 g/dLLow13.0-17.0UnSt. Elizabeth HospitalComment on above:Performed By: #### [id number] #### [facility] ([facility]) [address] [place], [place] [address]SLK (RBC) [Entitic mass]26.5 pgLow27.0-33.0UnSt. Elizabeth HospitalComment on above:Performed By: #### [id number] #### [facility] ([facility]) [address] [facility]ENT[facility] [place], [place] [address]JIJ (RBC) [Entitic vol]84.2 wNMgebqd80.0-98.0UnSt. Elizabeth HospitalComment on above:Performed By: #### [id number] #### [facility] ([facility]) [address] [place], [place] [address]QTQMXSQYY (10*3/UL) IN BLOOD AUTOMATED QJILF690 10*3/uLLow 150-400UnSt. Elizabeth HospitalComment on above:Performed By: #### [id number] #### [facility] ([facility]) [address] [place], [place] [address]GOM (Bld) [#/Vol]4.42 10*6/uLNormal4.20-5.70UnSt. Elizabeth HospitalComment on above:Performed By: #### [id number] #### [facility] ([facility]) [address] [place], [place] [address]PGT (Bld) [#/Vol]4.90 10*3/uLNormal4.00-10.60UnSt. Elizabeth HospitalComment on above:Performed By: #### [id number] #### [facility] ([facility]) [address] [place], [place] [address]WJfl 86-29-2641KTHkonnzl Of Present Illness Yoel Tamayo is a 39 y.o. 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), Chest pain (06/18/2024), CHF (congestive heart failure) [place] (08/20/2023), Chronic bronchitis, mucopurulent ([facility] (06/18/2024), Cigarette nicotine dependence without complication (06/18/2024), COVID-19, Current every day smoker (08/20/2023), Diabetes mellitus ([facility] (08/20/2023), Diabetic retinopathy [place] Erectile dysfunction due to arterial insufficiency (06/18/2024), ESRD (end stage renal disease) on dialysis [place]03[place]23), EBENEZER (generalized anxiety disorder) (06/18/2024), GERD (gastroesophageal reflux disease), HCAP (healthcare-associated pneumonia) (06/18/2024), History of VA (myocardial infarction) (08/20/2023), Hyperkalemia (06/18/2024), Hyperlipidemia (08/20/2023), Hypertensive emergency (03/17/2024), Hypoxemia (06/18/2024), Ischemic cardiomyopathy (03/17/2024), MGUS (monoclonal gammopathy of unknown significance) (06/18/2024), Mild episode of recurrent major depressive disorder (06/18/2024), Monoclonal (M) protein disease, 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 FV099-180=5nfkxg; 170-189=3units; 190-209=4units; 210-229=6units; 230-249=8units; 250-269=9units; 270-289=10units; 290-300=12units; >300=14units & notify provider 12/21/2024 isosorbide mononitrate ER (Imdur) 60 mg 24 hr tablet Take 60 mg by mouth two times daily. 12/22/2024 lisinopril 20 mg tablet 20 mg in the morning. 12/22/2024 loratadine (Claritin) 10 mg tablet Take 10 mg (more content not included)... NormalUnSt. Elizabeth HospitalNURSNOTEon 59-45-9451MHNDEUOSFhsfdpu refusing to wait any longer for heart cath. States he is hungry and annoyed and he wants to have his cath at [facility] with his regular doctor. 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 Patient leaving now.NormalUnSt. Elizabeth HospitalAlanine aminotransferase [Enzymatic activity/volume] in Serum or PlasmaOrdered By: Mickey Gr on 39-12-9675ZSW [Catalytic activity/Vol]Alanine aminotransferase [Enzymatic activity/volume] in Serum or Plasma7-52Corey HospitalAlbumin [Mass/volume] in Serum or Plasma by Bromocresol green (BCG) dye binding methoOrdered By: Mickey Gr on 45-47-1994Ixxnnxq BCG dye [Mass/Vol]Albumin [Mass/volume] in Serum or Plasma by Bromocresol green (BCG) dye binding metho3.5-5.7FMansfield HospitalAlkaline phosphatase [Enzymatic activity/volume] in Serum or PlasmaOrdered By: Mickey Gr on 56-47-0039GKA [Catalytic activity/Vol]Alkaline phosphatase [Enzymatic activity/volume] in Serum or Irotyx83-096AiuqnevidCorey Hospital Aspartate aminotransferase [Enzymatic activity/volume] in Serum or PlasmaOrdered By: Mickey Gr on 06-73-4028FJG [Catalytic activity/Vol]Aspartate aminotransferase [Enzymatic activity/volume] in Serum or Ucbjfa19-99IdzfepdqhCorey HospitalBasophils Auto (Bld) [#/Vol]Ordered By: Mickey Gr on 98-44-5532Zybihsfnu (Bld) [#/Vol]Automated basophil count0.0-0.2FMansfield HospitalBasophils/100 WBC Auto (Bld)Ordered By: Mickey Gr on 20-07-9546Ftbgwpzhd/100 WBC (Bld)Automated basophil %.Corey HospitalBilirubin.total [Mass/volume] in Serum or PlasmaOrdered By: Mickey rG on 19-65-5393Nytuijuhz [Mass/Vol]Bilirubin.total [Mass/volume] in Serum or Plasma0.3-1.0Corey HospitalCalcium [Mass/volume] in Serum or PlasmaOrdered By: Mickey Gr on 81-65-0097Lxpxuxy [Mass/Vol]Calcium [Mass/volume] in Serum or Plasma8.6-10.3FMansfield HospitalCarbon dioxide, total [Moles/volume] in Serum or PlasmaOrdered By: Mickey Gr on 06-23-6234KJ5 [Moles/Vol]Carbon dioxide, total [Moles/volume] in Serum or Plasma 21.0-31.0Corey HospitalChloride [Moles/volume] in Serum or PlasmaOrdered By: Mickey Gr on 01-81-0104Qrgqkqap [Moles/Vol]Chloride [Moles/volume] in Serum or UzayndVxm09-897EbilfvkcwCorey Hospital Complete Blood Count Auto Diffon 02-34-9020Olczhjmfq (Bld) [#/Vol]0.2 10*3/uL Normal0.0-0.2The [facility] Physician GroupComment on above:Result Comment: PERFORMED BY:[facility] [place], [place] [phone] MEDICAL DIRECTORCRISTHIAN HUFF M.D. Performed By: #### CBC, CMP ####[place] [id number] USABasophils/100 WBC (Bld)2.4 %Normal.The [facility] Physician GroupComment on above:Performed By: #### CBC, CMP ####[place] [address] USAEosinophils (Bld) [#/Vol]0.3 10*3/uLNormal0.0-0.45The [facility] Physician GroupComment on above: Performed By: #### CBC, CMP ####[place] [address] USAEosinophils/100 WBC (Bld)4.2 %Normal.The [facility] Physician GroupComment on above:Performed By: #### CBC, CMP ####[place] [address] USAErythrocyte distribution width (RBC) [Ratio]14.4 %Uuprxh79.0-14.8The [facility] Physician GroupComment on above:Performed By: #### CBC, CMP ####[place] [address] USAHematocrit (Bld) [Volume fraction] 35.2 %Low38.8-50.0The [facility] Physician GroupComment on above:Performed By: #### CBC, CMP ####[place] [address] USAHemoglobin (Bld) [Mass/Vol]11.7 g/dLLow13.0-17.0The [facility] Physician GroupComment on above:Performed By: #### CBC, CMP ####[place] [address] USALymphocytes (Bld) [#/Vol]0.7 10*3/uLLow1.00-4.8The [facility] Physician GroupComment on above:Performed By: #### CBC, CMP ####[address] [address] USALymphocytes/100 WBC (Bld)10.8 %Normal.The [facility] Comment on above:Performed By: #### CBC, CMP ####[address] [address] [facility] (RBC) [Entitic mass]27.0 pgLow 27.5-35.2The [facility] Physician GroupComment on above:Performed By: #### CBC, CMP ####[address] [address] [facility] (RBC) [Entitic vol]80.8 fLLow83.5-101The [facility] Physician GroupComment on above:Performed By: #### CBC, CMP ####[place] [address] USAMean Corpuscular HGB Conc33.4 g/wFEbqyjm36.5-35.6The [facility] Physician GroupComment on above:Performed By: #### CBC, CMP ####[place] [address] [place] Monocytes (Bld) [#/Vol]0.4 10*3/uLNormal0.0-0.8The [facility] Comment on above:Performed By: #### CBC, CMP ####[place] [id number] USAMonocytes/100 WBC (Bld)20.87 %High 0.00-20.00The [facility] Physician GroupComment on above:Result Comment: For adults in ED, MDW > 20.0 may be associated with a higher risk of sepsis during the first 12 hrs of hospital admissionPerformed By: #### CBC, CMP ####[place] [address] USAMonocytes/100 WBC (Bld)6.4 %Normal.The [facility] Physician GroupComment on above:Performed By: #### CBC, CMP ####[place] [id number] USANeutrophils (Bld) [#/Vol]5.2 10*3/uLNormal1.8-7.7The [facility] Physician GroupComment on above:Performed By: #### CBC, CMP ####[place] [address] USANeutrophils/100 WBC (Bld)76.2 %Normal.The [facility] Physician GroupComment on above:Performed By: #### CBC, CMP ####[place] [address] USANRBC%0.0 /100{WBC}Normal0-0.5The [facility] Physician GroupComment on above:Performed By: #### CBC, CMP ####[place] [address] USAPlatelet mean volume (Bld) [Entitic vol]7.8 fLNormal 6.6-10.1The [facility] Physician GroupComment on above:Performed By: #### CBC, CMP ####[place] [address] [place] Platelets (Bld) [#/Vol]124 10*3/sDZpo247-309Vpn [facility] Physician GroupComment on above:Performed By: #### CBC, CMP ####[place] [address] USARBC (Bld) [#/Vol]4.35 10*6/uLNormal3.90-5.60 The [facility] Physician GroupComment on above:Performed By: #### CBC, CMP ####[place] [address] USAWBC (Bld) [#/Vol]6.9 10*3/uLNormal4.1-10.5The [facility] Physician GroupComment on above:Performed By: #### CBC, CMP ####[place] [address] USAComprehensive Metabolic Panelon 53-85-6199Nmpfxay [Mass/Vol]4.0 g/dLNormal3.5-5.7The [facility] Physician GroupComment on above: Performed By: #### CBC, CMP ####[address] [address] USAAlbumin/Globulin [Mass ratio]1.3 {ratio}NormalThe [facility] Physician GroupComment on above:Performed By: #### CBC, CMP ####[address] [address] USAALP [Catalytic activity/Vol]55 U/IExeqnc14-871Dna [facility] Physician GroupComment on above:Performed By: #### CBC, CMP ####[address] [address] USAALT [Catalytic activity/Vol]11 U/LNormal7-52 The [facility] Physician GroupComment on above:Performed By: #### CBC, CMP ####[address] [address] USAAnion gap [Moles/Vol]12.3 mmol/LNormal6.0-15.0The [facility] Physician GroupComment on above:Performed By: #### CBC, CMP ####[address] [address] USAAST [Catalytic activity/Vol]15 U/SQzvzzd96-27Anh [facility] Physician GroupComment on above:Performed By: #### CBC, CMP ####[address] [address] [place] Bilirubin [Mass/Vol]0.7 mg/dLNormal0.3-1.0The [facility] Physician GroupComment on above:Performed By: #### CBC, CMP ####[address] [address] USACalcium [Mass/Vol]9.4 mg/dLNormal8.6-10.3The [facility] Physician GroupComment on above:Performed By: #### CBC, CMP ####[address] [address] [place] Chloride [Moles/Vol]97 mmol/URxq50-028Emc [facility]cu Health Physician GroupComment on above:Performed By: #### CBC, CMP ####[address] [address] [place]ACO2 [Moles/Vol]30.7 mmol/BUhonzg60.0-31.0The [facility]cu Health Physician GroupComment on above:Performed By: #### CBC, CMP ####[place] [id number] [facility] Creatinine [Mass/Vol]4.96 mg/dLHigh0.70-1.30The Ecu Health Physician GroupComment on above:Performed By: #### CBC, CMP ####[place] [id number] USACreatinine Clr Calc Ckdtgcji36.06NoSampson [facility] Physician Singing River GulfportComment on above:Result Comment: PERFORMED BY:[address] [place], [place] [phone] MEDICAL DIRECTORCRISTHIAN HUFF M.D.Performed By: #### CBC, CMP ####[address] Estimated GFR14.370 mL/MinNoPomerene HospitalComment on above: Performed By: #### CBC, CMP ####[place] [id number] USAGlobulin (S) [Mass/Vol]3.0 g/dLMelbourne Regional Medical Center Physician Singing River GulfportComment on above:Performed By: #### CBC, CMP ####[place] [address] USAGlucose [Mass/Vol]128 mg/aDMugd49-995Xjt [facility] Health Physician GroupComment on above:Result Comment: Random Glucose Reference Range is dependent on time and content of last meal. Glucose of more than 200 mg/dL in a nonstressed, ambulatory subject supports the diagnosis of Diabetes Mellitus. ADA recommended reference rangePerformed By: #### CBC, CMP ####[place] [address] USAPotassium [Moles/Vol]4.0 mmol/LNormal3.5-5.1The Ecu Health Physician GroupComment on above:Performed By: #### CBC, CMP ####[facility] [address] [place] [address] USAProtein [Mass/Vol]7.0 g/dLNormal 6.4-8.9The [facility]cu Health Physician GroupComment on above:Performed By: #### CBC, CMP ####[facility] [address] [place] [address] USASodium [Moles/Vol]136 mmol/BVfqtwd152-611Klc [facility]cu Health Physician GroupComment on above:Performed By: #### CBC, CMP ####[facility] [address] [place] [address] USAUrea nitrogen [Mass/Vol]24 mg/dLNormal7-25The [facility]cu Health Physician GroupComment on above:Performed By: #### CBC, CMP ####[facility] [address] [place] [id number] [place] Creatinine [Mass/volume] in Serum or PlasmaOrdered By: Mickey Gr on 55-50-9820Djucvupoyr [Mass/Vol]Creatinine [Mass/volume] in Serum or PlasmaHigh 0.70-1.30Corey HospitalEosinophils Auto (Bld) [#/Vol]Ordered By: Mickey Gr on 79-23-7704Zcqyvqnqyiw (Bld) [#/Vol]Automated eosinophil count0.0-0.45Corey HospitalEosinophils/100 WBC Auto (Bld) Ordered By: Mickey Gr on 05-09-3260Ymjhuvqayau/100 WBC (Bld)Automated eosinophil %.Corey HospitalErythrocyte distribution width Auto (RBC) [Ratio]Ordered By: Mickey Gr on 90-44-4937Bmyjqazrbyo distribution width (RBC) [Ratio]Erythrocyte distribution width [Ratio] by Automated count 12.0-14.8Corey HospitalGlobulin Calc (S) [Mass/Vol]Ordered By: Mickey Gr on 78-19-2720Hhishlul (S) [Mass/Vol]Serum globulin measurement by calculation (mass/volume)Corey HospitalGlucose [Mass/volume] in Serum or PlasmaOrdered By: Mickey Gr on 96-77-1543Ukxausc [Mass/Vol]Glucose [Mass/volume] in Serum or MfmtsdBznu09-112PiekphoueCorey HospitalComment on above:ADA recommended reference rangeRandom Glucose Reference Range is dependent on time and content of last meal. Glucose of more than 200 mg/dL in a nonstressed, ambulatory subject supports the diagnosisof Diabetes Mellitus.Hematocrit Auto (Bld) [Volume fraction]Ordered By: Mickey Gr on 58-76-5302Izvxxfypkt (Bld) [Volume fraction]Hematocrit [Volume Fraction] of Blood by Automated rvlgsYaa23.8-50.0[facility] Hemoglobin [Mass/volume] in BloodOrdered By: Mickey Gr on 12-17-2024 Hemoglobin (Bld) [Mass/Vol]Hemoglobin [Mass/volume] in DjorvXxc75.0-17.0 Corey HospitalLeukocytes [#/volume] corrected for nucleated erythrocytes in Blood by Automated counOrdered By: Mickey Gr on 46-63-2433LUY corrected for nucl RBC Auto (Bld) [#/Vol]Leukocytes [#/volume] corrected for nucleated erythrocytes in Blood by Automated coun4.1-10.5FMansfield HospitalLymphocytes Auto (Bld) [#/Vol]Ordered By: Mickey Gr on 69-31-9918Rldktuzipka (Bld) [#/Vol]Lymphocytes [#/volume] in Blood by Automated countLow1.00-4.8Corey HospitalLymphocytes/100 WBC Auto (Bld) Ordered By: Mickey Gr on 95-11-4958Fspmboaygvq/100 WBC (Bld)Lymphocytes/100 leukocytes in Blood by Automated count.Corey HospitalMCH Auto (RBC) [Entitic mass]Ordered By: Mickey Gr on 57-22-9946CTI (RBC) [Entitic mass]MCH [Entitic mass] by Automated nkuukEbj30.5-35.2FMansfield HospitalMCHC Auto (RBC) [Mass/Vol]Ordered By: Mickey Gr on 05-93-3117TYPN (RBC) [Mass/Vol]MCHC [Mass/volume] by Automated count32.5-35.6FMansfield HospitalMCV Auto (RBC) [Entitic vol]Ordered By: Mickey Gr on 12-17-2024 MCV (RBC) [Entitic vol]MCV [Entitic volume] by Automated rnewrMbf72.5-101 Corey HospitalMonocyte distribution width [Entitic volume] in Blood by AutomatedOrdered By: Mickey Gr on 30-63-4317Sexuywdf distribution width Auto (Bld) [Entitic vol]Monocyte distribution width [Entitic volume] in Blood by AutomatedHigh0.00-20.00Corey HospitalComment on above:For adults in ED, MDW > 20.0 may be associated with a higher risk of sepsis during the first 12 hrs of hospital admissionMonocytes Auto (Bld) [#/Vol] Ordered By: Mickey Gr on 86-03-6174Jryzcujwc (Bld) [#/Vol]Automated blood monocyte count0.0-0.8Corey HospitalMonocytes/100 WBC Auto (Bld)Ordered By: Mickey Gr on 66-67-7760Dxlqmycmc/100 WBC (Bld)Automated monocyte %.Corey HospitalNeutrophils Auto (Bld) [#/Vol] Ordered By: Mickey Gr on 23-58-5379Yphhrqxwgvs (Bld) [#/Vol]Neutrophils [#/volume] in Blood by Automated count1.8-7.7FMansfield Hospital Neutrophils/100 WBC Auto (Bld)Ordered By: Mickey Gr on 12-17-2024 Neutrophils/100 WBC (Bld)Automated neutrophil %.Corey HospitalNo Panel InformationOrdered By: Mickey Gr on 45-19-9845Gzolfgsrm GFR (CKD-EPI)14.370 mL/MinCorey HospitalPharmacy Creatinine Clearance (Chem22.06Corey HospitalNucleated erythrocytes [Presence] in Blood by Automated countOrdered By: Mickey Gr on 12-17-2024 Nucleated RBC Auto Ql (Bld)Nucleated erythrocytes [Presence] in Blood by Automated count0-0.5FMansfield HospitalPlatelet mean volume Auto (Bld) [Entitic vol]Ordered By: Mickey Gr on 75-94-7504Nezixdqu mean volume (Bld) [Entitic vol]Platelet mean volume [Entitic volume] in Blood by Automated count6.6-10.1FMansfield HospitalPlatelets Auto (Bld) [#/Vol] Ordered By: Mickey Gr on 02-99-9051Kgbpgvmtf (Bld) [#/Vol]Platelets [#/volume] in Blood by Automated qwlqhMhh618-169AzguaehbcCorey HospitalPotassium [Moles/volume] in Serum or PlasmaOrdered By: Mickey Gr on 01-46-1967Ayvweobnq [Moles/Vol]Potassium [Moles/volume] in Serum or Plasma 3.5-5.1FMansfield HospitalProtein [Mass/volume] in Serum or Plasma Ordered By: Mickey Gr on 70-58-7970Gpmvwgm [Mass/Vol]Protein [Mass/volume] in Serum or Plasma6.4-8.9Corey HospitalRBC Auto (Bld) [#/Vol] Ordered By: Mickey Gr on 28-91-1230YWS (Bld) [#/Vol]Erythrocytes [#/volume] in Blood by Automated count3.90-5.60Magruder Memorial Hospitalerum or plasma albumin/globulin mass ratioOrdered By: Mickey Gr on 12-17-2024 Albumin/Globulin [Mass ratio]Serum or plasma albumin/globulin mass ratio [facility] Hospitalerum or plasma anion gap determinationOrdered By: Mickey Gr on 44-52-2373Gimap gap [Moles/Vol]Serum or plasma anion gap determination6.0-15.0[facility]uder Memorial Hospitalodium [Moles/volume] in Serum or PlasmaOrdered By: Mickey Gr on 63-82-9672Oeyoyq [Moles/Vol]Sodium [Moles/volume] in Serum or Jdomzw528-681TjneqtdphCorey HospitalUrea nitrogen [Mass/volume] in Serum or PlasmaOrdered By: Mickey Gr on 12-17-2024 Urea nitrogen [Mass/Vol]Urea nitrogen [Mass/volume] in Serum or Plasma7-25 Corey HospitalWBC Auto (Bld) [#/Vol]Ordered By: Mickey Gr on 88-12-6572NJO (Bld) [#/Vol]Leukocytes [#/volume] in Blood by Automated count 4.1-10.5FMansfield HospitalXR chest 2V*on 13-04-5116NZ chest 2V* NormalSt. Vincent'[facility]side Physician GroupECG 12 lead ECGon 37-01-5596DRK 12 lead ECG NormalThe Ecu Health Physician GroupLetter (Out)on 73-36-2275Csvtkv (Out) [id number] Yoel Tamayo 1985 M Date Provider Department Center 12/02/2024 None-None [facility] AUTH SD Medical C Family History Problem Relation Age of Onset Pancreatic cancer Mother Diabetes Mother Liver disease Mother Hypertension Father Irritable bowel syndrome Father Stroke Father Coronary artery disease Brother 55 Lung cancer Paternal Grandmother Coronary artery disease Paternal Grandfather Family Status - Relation Status Age at Mother Father Alive Brother Paternal Grandmother Paternal GrandfatherNormalACMC Healthcare System GlenbeighFollow-Upon 18-40-7574Nhxkng-[id number] Yoel Tamayo 1985 M Date Provider Department [place] 11/19/2024 [facility] CARD SD HeartVAS Family History Problem Relation Age of Onset Pancreatic cancer Mother Diabetes Mother Liver disease Mother Hypertension Father Irritable bowel syndrome Father Stroke Father Coronary artery disease Brother 55 Lung cancer Paternal Grandmother Coronary artery disease Paternal Grandfather Family Status - Relation Status Age at Mother Father Alive Brother Paternal Grandmother Paternal Grandfather Level of Service:71487 MS OFFICE/OUTPATIENT ESTABLISHED HIGH MDM 40 MIN (GC) [facility]36on 96-59-553256RT spoke to patient about recent lab results [...] still attend his cardiology visit with Dr Asencio on 11/19/24 as they are planning to [...] will need to have his chest cracked open.NormalUniversity of Valley Regional Medical Center 69-52-1294HIHD Attestation signed by Sandra Fierro MD at 11/03/2024 10:09 AM Sandra Fierro MD, MPH, [facility], [facility], [facility] Interventional Cardiology Pager Email: [email or web address] Patient: Yoel Tamayo Procedure Information Date/Time: 11/03/24999 Procedure: TRANSESOPHAGEAL ECHO (MURIEL) Location: [facility] Heart and Vascular Center Vascular [...] products. Plan discussed with attending. Additional Equipment RequestsNormalUniversMercy Health Defiance Hospital 28-64-7700FQ Attestation signed by Sandra Fierro MD at [...] me. Additional Comments: Sandra [facility]ierro MD, MPH, [facility], [facility], [facility] Interventional Cardiology Pager Email: [email or web address] History Of Present Illness Yoel Tamayo is a 39 y.o. male with hx of DM, ESRD on dialysis, HTN, severe MR on TTE presenting for MURIEL to evaluate MR. 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), Chest pain (06/18/2024), CHF (congestive heart failure) ([facility]) (08/20/2023), Chronic bronchitis, mucopurulent ([facility]) (06/18/2024), Cigarette nicotine dependence without complication (06/18/2024), COVID-19, Current every day smoker (08/20/2023), Diabetes mellitus ([facility]) (08/20/2023), Diabetic retinopathy [place] Erectile dysfunction due to arterial insufficiency (06/18/2024), ESRD (end stage renal disease) on dialysis ([facility])(03/01/2023), EBENEZER (generalized anxiety disorder) (06/18/2024), GERD (gastroesophageal reflux disease), HCAP (healthcare-associated pneumonia) (06/18/2024), History of VA (myocardial infarction) (08/20/2023), Hyperkalemia (06/18/2024), Hyperlipidemia (08/20/2023), Hypertensive emergency (03/17/2024), Hypoxemia (06/18/2024), Ischemic cardiomyopathy (03/17/2024), MGUS (monoclonal gammopathy of unknown significance) (06/18/2024), Mild episode of recurrent major depressive disorder (06/18/2024), Monoclonal (M) protein disease, 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 Jorje Delgadillo MD PGY-5 Dent Remover [facility] Pager # [phone] [facility] HospitalLabon 92-32-7903Mog [id number] RashiYoel meehan 1985 M Date Provider Department Center 11/03/2024 2764-[facility] OPD LAB RESOURCE [facility] OPD SD Medical C Family History Problem Relation Age of Onset Pancreatic cancer Mother Diabetes Mother Liver disease Mother Hypertension Father Irritable bowel syndrome Father Stroke Father Coronary artery disease Brother 55 Lung cancer Paternal Grandmother Coronary artery disease Paternal Grandfather Family Status - Relation Status Age at Mother Father Alive Brother Paternal Grandmother Paternal GrandfatherNormalUnSt. Elizabeth HospitalNICOTINE AND METABOLITE, QUANTITATIVEon 99-51-1355NUZVQXAF, ZHYRS687 ng/mLNormalUnSt. Elizabeth HospitalComment on above:Performed By: #### [id number] #### [facility] HOSPITAL LAB (BEAKER) [address] [place], [place] [address]LXXGNSQC QUANT25 ng/mLNormalUnSt. Elizabeth Hospital Comment on above:Result Comment: INTERPRETIVE INFORMATION: Nicotine and Metabolites, Serum or Plasma, [...] developed and its performance characteristics determined by [facility]. It has not been cleared or approved by the [place] Food and Drug Administration. This test was performed in a CLIA certified laboratory and is intended for clinical purposes. Performed By: [facility] [address] [place] [address] Front Desk Specialist: Gage Daley MD, PhD CLIA Number: [id number] By: #### [id number] #### [facility] LAB (BEAKER) [address] [place], [place] [address]QKRRMOWHub 88-33-6647NMGFKVZQGtcgzcz swallow study completed and passed. RN educated pt on [...] wheeled off of unit with all of belongings.NormalUnSt. Elizabeth HospitalPANEL REACTIVE ANTIBODYon 29-90-2148QYNH SPECIMENHold for add-ons. NormalUnSt. Elizabeth HospitalComment on above:Order Comment: To be drawn as needed for donor crossmatch purposesResult Comment: Auto resulted. Performed By: #### [id number] #### [facility] TISSUE TYPING (HISTOTRAC) [address] [place] [address] USAPOCT GLUCOSE METER UNSOLICITED RESULTSon 40-74-9750Wumejup [Mass/Vol]110 mg/wRQafo77-931FushhtvzwbACMC Healthcare System GlenbeighComment on above:Order Comment: Waived Testing in the ED is performed under the ED CLIA certificate #[id number].Result Comment: rchagolPerformed By: #### [id number] #### [facility] LAB ([facility]) [address] [place], [place] [address]YKDCJU ANTIGEN CLASS Ion 26-83-1506EZ SCREEN COMMENTSNo Specificites FoundNormalUniversCleveland Clinic Medina HospitalCommunson healthcare manistee hospital on above: Performed By: #### [id number] #### [facility] ([facility]) [address] [place], [place] [address]Rbpxqtorv By: #### [id number] #### [facility]ORATORY ([facility]) [address] [place], [place] [address]DTXOE I TESTED [id number] of [facility]edo Medical CenterCommunson healthcare manistee hospital on above:Performed By: #### [id number] #### [facility] LAB ([facility]) [address] [place], [place] [address]ALDB5HxwmsgTfpbdpsyqhKettering HealthCommunson healthcare manistee hospital on above: Performed By: #### [id number] #### [facility] ([facility]) [address] [place], [place] [address]Louynsbry By: #### [id number] #### [facility] LABORATORY ([facility]) [address] [place], [place] [address]TDEZIT BYSigned by Govind Robison CHT([facility]) [place](ASCP), Cyber Security Transplant ImmunologyNormalUniversCleveland Clinic Medina HospitalCommunson healthcare manistee hospital on above:Result Comment: Class I Antigen MicrobeadsPerformed By: #### [id number] #### [facility] ([facility]) [address] [place], [place] [address]Msshkdksy By: #### [id number] #### [facility] LABORATORY ([facility]) [address] [place], [place] [address]CXCFAK ANTIGEN CLASS 1 TEST METHODClass I Single Antigen NormalUnSt. Elizabeth HospitalComment on above:Performed By: #### [id number] #### [facility] HOSPITAL LAB (BEAKER) [address] [place], [place] [address]XIWXWA ANTIGEN CLASS IIon 75-66-4748IHFIL II TESTED DATE [id number]d Clinic Euclid HospitalComment on above: Performed By: #### [id number] #### [facility] ([facility]) [address] [place], [place] [address]TWTXLB ANTIGEN CLASS 2 TEST METHODClass II Single AntigenNormalUniverscleveland clinic euclid hospital of [facility] Regional Medical CenterComment on above:Result Comment: Class II Antigen MicrobeadsPerformed By: #### [id number] #### [facility] LABORATORY ([facility]) [address] [place], [place] [address]Zwyxv Metabolic Panelon 81-13-1368Clfny gap [Moles/Vol] 23.2 mmol/LHigh6.0-15.0The Ecu Health Physician GroupComment on above:Performed By: #### BMP ####[place] [address] USACalcium [Mass/Vol]9.0 mg/dLNormal8.6-10.3The [facility] Comment on above:Performed By: #### BMP ####[address] [address] USAChloride [Moles/Vol]99 mmol/WKysgdx24-723Yhf Ecu Health Physician GroupComment on above:Performed By: #### BMP ####[address] [address] USACO2 [Moles/Vol]18.8 mmol/LLow21.0-31.0The Ecu Health Physician GroupComment on above:Performed By: #### BMP ####[address] [address] USACreatinine [Mass/Vol]10.70 mg/dLSignificant change up0.70-1.30The Ecu Health Physician GroupComment on above:Performed By: #### BMP ####[address] [address] USACreatinine Clr Calc Pharmacy 10.13NoSampson Regional Medical Center Physician GroupComment on above:Result Comment: PERFORMED BY:[place] [address] [address] [place], [place] [phone] MEDICAL DIRECTORCRISTHIAN HUFF M.D. Performed By: #### BMP ####[address] [address] USAEstimated GFR5.712 mL/MinNoSampson Regional Medical Center Physician Singing River GulfportComment on above:Performed By: #### BMP ####[address] [address] USAGlucose [Mass/Vol]69 mg/dLLow 70-100The Ecu Health Physician GroupComment on above:Result Comment: Random Glucose Reference Range is dependent on time and content of last meal. Glucose of more than 200 mg/dL in a nonstressed, ambulatory subject supports the diagnosis of Diabetes Mellitus. ADA recommended reference rangePerformed By: #### BMP ####[address] [address] USAPotassium [Moles/Vol]6.0 mmol/LHigh3.5-5.1The [facility] Comment on above:Performed By: #### BMP ####[address] [address] USASodium [Moles/Vol]135 mmol/XOue207-395Pbh [facility] Health Physician GroupComment on above:Performed By: #### BMP ####[address] [address] USAUrea nitrogen [Mass/Vol]100 mg/dLHigh7-25The Ecu Health Physician GroupComment on above: Performed By: #### BMP ####[address] [address] USACT abdomen pelvis wo conon 49-25-4408QD abdomen pelvis wo conNormalSt. Vincent'S Medical Center [facility]side Physician GroupCT head/brain wo conon 65-89-4654BA head/brain wo conNormalWiser Hospital For Women And InfantsCalcium [Mass/volume] in Serum or PlasmaOrdered By: Judd Jacobs on 11-02-2024 Calcium [Mass/Vol]Calcium [Mass/volume] in Serum or Plasma8.6-10.3FMansfield HospitalCarbon dioxide, total [Moles/volume] in Serum or Plasma Ordered By: Judd Jacobs on 85-40-1410RK6 [Moles/Vol]Carbon dioxide, total [Moles/volume] in Serum or QiemavUul27.0-31.0[facility] Chloride [Moles/volume] in Serum or PlasmaOrdered By: Judd Jacobs on 00-54-9638Svcgcrwz [Moles/Vol]Chloride [Moles/volume] in Serum or Qycpfm34-955 Corey HospitalCreatinine [Mass/volume] in Serum or Plasma Ordered By: Judd Jacobs on 18-26-5035Gaflgozpol [Mass/Vol]Creatinine [Mass/volume] in Serum or PlasmaSignificant change up0.70-1.30Corey HospitalComment on above:Delta: 9.89 on 11/01/24Glucose Glucometer (BldC) [Mass/Vol]Ordered By: Law Cano on 83-02-5296Jybsrpy [Mass/Vol] Capillary blood glucose measurement by glucometer (mass/volume)Corey HospitalComment on above:Random Glucose Reference Range is dependent on time and content of last meal. Glucose of more than 200 mg/dL in a nonstressed, ambulatory subject supports the diagnosis of Diabetes Mellitus. Glucose Poct Glucometerson 40-41-4797Imqegnj5Pef2: Cleaned MeterNoSampson Regional Medical Center Physician GroupComment on above:Result Comment: PERFORMED BY:[facility] [place], [place] [phone] MEDICAL DIRECTORCRISTHIAN HUFF M.D.Performed By: #### GLULS ####Point of Care testing,Glucose [Mass/Vol]192 mg/dLMelbourne Regional Medical Center Physician Group Comment on above:Result Comment: Random Glucose Reference Range is dependent on time and content of last meal. Glucose of more than 200 mg/dL in a nonstressed, ambulatory subject supports the diagnosis of Diabetes Mellitus.Performed By: #### GLULS ####Point of Care testing,Glucose [Mass/Vol]202 mg/dLMelbourne Regional Medical Center Physician GroupComment on above:Result Comment: Random Glucose Reference Range is dependent on time and content of last meal. Glucose of more than 200 mg/dL in a nonstressed, ambulatory subject supports the diagnosis of Diabetes Mellitus.PERFORMED BY:[address] [place]rí[place], [place] [phone] MEDICAL DIRECTORCRISTHIAN EDDY M.D.Performed By: #### GLULS ####Point of Care testing,Glucose [Mass/Vol]64 mg/dLNoSampson Regional Medical Center Physician GroupComment on above:Result Comment: Random Glucose Reference Range is dependent on time and content of last meal. Glucose of more than 200 mg/dL in a nonstressed, ambulatory subject supports the diagnosis of Diabetes Mellitus.PERFORMED BY:[address] [place], [place] [phone] MEDICAL DIRECTORCRISTHIAN HUFF M.D.Performed By: #### GLULS ####Point of Care testing,Glucose [Mass/volume] in Serum or PlasmaOrdered By: Judd Jacobs on 35-43-9304Jafdzmf [Mass/Vol]Glucose [Mass/volume] in Serum or NayfibWeh66-519 Corey HospitalComment on above:ADA recommended reference rangeRandom Glucose Reference Range is dependent on time and content of last meal. Glucose of more than 200 mg/dL in a nonstressed, ambulatory subject supports the diagnosisof Diabetes Mellitus.No Panel InformationOrdered By: Law Cano on 53-13-5030Wgxsnht Glucose CommentGlu2: cleaned [facility] HospitalNo Panel InformationOrdered By: Judd Jacobs on 70-88-8828Bixuidjlt GFR (CKD-EPI)5.712 mL/MinCorey Hospital Pharmacy Creatinine Clearance (Chem10.13[facility] Potassium [Moles/volume] in Serum or PlasmaOrdered By: Judd Jacobs on 97-37-6721Tvkrvxnia [Moles/Vol]Potassium [Moles/volume] in Serum or PlasmaHigh 3.5-5.1FMary Rutan Hospitalerum or plasma anion gap determination Ordered By: Judd Jacobs on 05-94-3795Rdbzd gap [Moles/Vol]Serum or plasma anion gap determinationHigh6.0-15.0Magruder Memorial Hospitalodium [Moles/volume] in Serum or PlasmaOrdered By: Judd Jacobs on 11-02-2024 Sodium [Moles/Vol]Sodium [Moles/volume] in Serum or NvyeuxXuy178-547GojzaddduCorey HospitalUrea nitrogen [Mass/volume] in Serum or PlasmaOrdered By: Judd Jacobs on 59-50-1075Oolt nitrogen [Mass/Vol]Urea nitrogen [Mass/volume] in Serum or PlasmaHigh7-25Corey HospitalX-ray reportOrdered By: Yoel Mart on 32-54-4233Pkjmo reportPARK[place] [address] XRay Report Signed Patient: Yoel Tamayo MR#: [id number] : 1985 Acct:[id number] Age/Sex: 39 / M ADM Date: 5 Loc: Room: [address] [place] [address] Type: ADM INOo Attending Dr: Law Cano [...] Mart Jr., D.O.11/02/2024 8:28 AM Dictation Location: [place] [address] Transcribed By: [facility] 11/02/24827 Dictated By: Yoel Mart Jr, DO 11/02/2428 Signed By: 11/02/2428 Corey HospitalXR chest 1V portableon 92-08-1712BK chest 1V portableNormalThe Firelands Physician GroupAlanine aminotransferase [Enzymatic activity/volume] in Serum or PlasmaOrdered By: Hector Mann on 73-57-7637JLI [Catalytic activity/Vol]Alanine aminotransferase [Enzymatic activity/volume] in Serum or Plasma7-52Corey HospitalAlbumin [Mass/volume] in Serum or Plasma by Bromocresol green (BCG) dye binding methoOrdered By: Hector Mann on 77-28-9810Xssuwwj BCG dye [Mass/Vol]Albumin [Mass/volume] in Serum or Plasma by Bromocresol green (BCG) dye binding metho3.5-5.7FMansfield HospitalAlkaline phosphatase [Enzymatic activity/volume] in Serum or PlasmaOrdered By: Hector Mann on 83-62-6023YBF [Catalytic activity/Vol] Alkaline phosphatase [Enzymatic activity/volume] in Serum or Tcabqu74-603 Corey HospitalAppearance of UrineOrdered By: Hector Mann on 60-31-7812Lxqqjbrklm (U)Urine appearanceCleAdena Pike Medical Center Aspartate aminotransferase [Enzymatic activity/volume] in Serum or PlasmaOrdered By: Hector Mann on 90-13-5774XPK [Catalytic activity/Vol]Aspartate aminotransferase [Enzymatic activity/volume] in Serum or Npbuas65-26RjgosiedgCorey HospitalB-Type Natriuretic Peptideon 77-75-0880Qfnwssqhwpb peptide B (Bld) [Mass/Vol]1961.0 pg/mLHigh5-100[facility] Comment on above:Result Comment: PERFORMED BY:[facility] [place], [place] [phone] MEDICAL DIRECTORCRISTHIAN HUFF M.D.Performed By: #### CK, PT, MG, HS TROP, CBC, CMP, BNP ####[facility] [place] [address] USABacteria [Presence] in Urine by AutomatedOrdered By: Hector Mann on 99-33-3965Hcoizzyq Auto Ql (U)Bacteria [Presence] in Urine by AutomatedNone Seen Corey HospitalBasophils Auto (Bld) [#/Vol]Ordered By: Hector Mann on 12-40-3035Beekrhvnh (Bld) [#/Vol]Automated basophil count0.0-0.2 Corey HospitalBasophils/100 WBC Auto (Bld)Ordered By: Hector Mann on 41-08-1683Suogjzmnj/100 WBC (Bld)Automated basophil %.Corey HospitalBilirubin Test strip Ql (U)Ordered By: Hector Mann on 75-98-0728Tomnoljgp Ql (U)Bilirubin.total [Presence] in Urine by Test strip NegativeCorey HospitalBilirubin.total [Mass/volume] in Serum or PlasmaOrdered By: Hector Mann on 93-64-2429Ffaizfomy [Mass/Vol] Bilirubin.total [Mass/volume] in Serum or Plasma0.3-1.0Corey HospitalBioFire Not Detectedon 03-47-6968VmpXgby Not DetectedNot detected NormalNot DetecteThe Ecu Health Physician GroupComment on above:Result Comment: This is a duplicate RP2.1 COVID (PCR) result to be used for statistical tracking purpose only.PERFORMED BY:[address] [phone] MEDICAL DIRECTORCRISTHIAN EDDY M.D.Performed By: #### RESP PANEL UPP., BIOFIRECOVNOTDE ####[place] [id number] USABlood Cultureon 99-89-2920Iczuzibs identified Cx Nom (Bld)NO GROWTH 5 DAYS PERFORMED BY: [place] [id number] PATHOLOGIST MILK HAULER CRISTHIAN HUFF M.D.NormalSt. Vincent'S Medical Center Southside Physician GroupComment on above: Performed By: #### CUBLD ####[place] [id number] USABacteria identified Cx Nom (Bld)NO GROWTH 5 DAYS PERFORMED BY: [place] [address] PATHOLOGIST MILK HAULER CRISTHIAN HUFF M.D.NormalThe Ecu Health Physician GroupComment on above: Performed By: #### CUBLD ####[facility] [place] [address] USACOVID-19 Detected/Not DetectedOrdered By: Hector Mann on 19-23-5482NHYU-CoV-2 (COVID-19) RNA HAO+non-probe Ql (Nph)Not detectedNot DetectPomerene HospitalComment on above:This is a duplicate RP2.1 COVID (PCR) result to be used for statistical tracking purpose only.Calcium [Mass/volume] in Serum or PlasmaOrdered By: Hector Mann on 42-48-0654Fibkimd [Mass/Vol]Calcium [Mass/volume] in Serum or Plasma8.6-10.3 Corey HospitalCarbon dioxide, total [Moles/volume] in Serum or PlasmaOrdered By: Hector Mann on 58-89-9705JQ7 [Moles/Vol]Carbon dioxide, total [Moles/volume] in Serum or VbkxuwNzl43.0-31.0Corey HospitalChloride [Moles/volume] in Serum or PlasmaOrdered By: Hector Mann on 05-53-6507Tuvlqoic [Moles/Vol]Chloride [Moles/volume] in Serum or PlasmaLow 98-107Corey HospitalColor Auto (U)Ordered By: Hector Mann on 37-38-3309Iqpop (U)Color of Urine by AutoYellowCorey HospitalComplete Blood Count Auto Diffon 05-98-3108Qtbuqixqi (Bld) [#/Vol]0.1 10*3/uLNormal0.0-0.2The [facility] Health Physician GroupComment on above:Result Comment: PERFORMED BY:[facility] [place], [place] [phone] MEDICAL DIRECTORCRISTHIAN HUFF M.D. Performed By: #### CK, PT, MG, HS TROP, CBC, CMP, BNP ####[facility] [address] [place] [address] USABasophils/100 WBC (Bld)2.1 % Normal.The [facility] Health Physician GroupComment on above:Performed By: #### CK, PT, MG, HS TROP, CBC, CMP, BNP ####[place] [address] USAEosinophils (Bld) [#/Vol]0.3 10*3/uLNormal0.0-0.45The [facility] Health Physician GroupComment on above:Performed By: #### CK, PT, MG, HS TROP, CBC, CMP, BNP ####[place] [address] USAEosinophils/100 WBC (Bld)5.7 %Normal.[facility] Comment on above:Performed By: #### CK, PT, MG, HS TROP, CBC, CMP, BNP ####[address] Erythrocyte distribution width (RBC) [Ratio]15.4 %High12.0-14.8The [facility]cu Health Physician GroupComment on above:Performed By: #### CK, PT, MG, HS TROP, CBC, CMP, BNP ####[place] [address] USAHematocrit (Bld) [Volume fraction]31.0 %Low38.8-50.0The [facility] Health Physician GroupComment on above:Performed By: #### CK, PT, MG, HS TROP, CBC, CMP, BNP ####[place] [address] [place] Hemoglobin (Bld) [Mass/Vol]10.5 g/dLLow13.0-17.0The [facility] Comment on above:Performed By: #### CK, PT, MG, HS TROP, CBC, CMP, BNP ####[place] [address] [place] Lymphocytes (Bld) [#/Vol]0.8 10*3/uLLow1.00-4.8The [facility] Comment on above:Performed By: #### CK, PT, MG, HS TROP, CBC, CMP, BNP ####[place] [address] [place] Lymphocytes/100 WBC (Bld)13.5 %Normal.The [facility] Health Physician GroupComment on above:Performed By: #### CK, PT, MG, HS TROP, CBC, CMP, BNP ####[place] [id number] [facility] (RBC) [Entitic mass]28.6 xlYphaco99.5-35.2The [facility] Health Physician GroupComment on above: Performed By: #### CK, PT, MG, HS TROP, CBC, CMP, BNP ####[address] (RBC) [Entitic vol]84.3 fL Piiwse09.5-101The [facility]cu Health Physician GroupComment on above:Performed By: #### CK, PT, MG, HS TROP, CBC, CMP, BNP ####[place] [address] USAMean Corpuscular HGB Conc33.9 g/cVCixijq21.5-35.6The [facility] Health Physician GroupComment on above:Performed By: #### CK, PT, MG, HS TROP, CBC, CMP, BNP ####[place] [address] USAMonocytes (Bld) [#/Vol]0.4 10*3/uLNormal0.0-0.8The [facility] Health Physician GroupComment on above:Performed By: #### CK, PT, MG, HS TROP, CBC, CMP, BNP ####[place] [address] USAMonocytes/100 WBC (Bld)17.06 %Normal0.00-20.00The [facility] Comment on above:Performed By: #### CK, PT, MG, HS TROP, CBC, CMP, BNP ####[place] [address] [place] Monocytes/100 WBC (Bld)6.3 %Normal.The [facility] Health Physician GroupComment on above:Performed By: #### CK, PT, MG, HS TROP, CBC, CMP, BNP ####[address] [place] [address] USANeutrophils (Bld) [#/Vol]4.3 10*3/uLNormal1.8-7.7The [facility] Health Physician GroupComment on above: Performed By: #### CK, PT, MG, HS TROP, CBC, CMP, BNP ####[place] [id number] USANeutrophils/100 WBC (Bld)72.4 %Normal.The [facility] Health Physician GroupComment on above:Performed By: #### CK, PT, MG, HS TROP, CBC, CMP, BNP ####[place] [address] [place] [id number] USANRBC%0.0 /100{WBC}Normal0-0.5The [facility] Health Physician GroupComment on above:Performed By: #### CK, PT, MG, HS TROP, CBC, CMP, BNP ####[place] [address] [place] Platelet mean volume (Bld) [Entitic vol]7.3 fLNormal6.6-10.1The [facility] Health Physician GroupComment on above:Performed By: #### CK, PT, MG, HS TROP, CBC, CMP, BNP ####[place] [address] USAPlatelets (Bld) [#/Vol]142 10*3/lIFfk722-400Hse [facility] Comment on above:Performed By: #### CK, PT, MG, HS TROP, CBC, CMP, BNP ####[place] [address] USARBC (Bld) [#/Vol]3.68 10*6/uLLow3.90-5.60The [facility] Health Physician GroupComment on above:Performed By: #### CK, PT, MG, HS TROP, CBC, CMP, BNP ####[place] [address] USAWBC (Bld) [#/Vol]5.9 10*3/uLNormal4.1-10.5The [facility] Health Physician GroupComment on above:Performed By: #### CK, PT, MG, HS TROP, CBC, CMP, BNP ####[place] [address] USAComprehensive Metabolic Panelon 11-01-2024 Albumin [Mass/Vol]3.9 g/dLNormal3.5-5.7The [facility] Health Physician GroupComment on above:Performed By: #### CK, PT, MG, HS TROP, CBC, CMP, BNP ####[place] [address] USAAlbumin/Globulin [Mass ratio]1.3 {ratio}NormalThe Ecu Health Physician GroupComment on above: Performed By: #### CK, PT, MG, HS TROP, CBC, CMP, BNP ####[place] [address] USAALP [Catalytic activity/Vol]55 U/FLsquky35-243Jxz [facility] Physician GroupComment on above:Performed By: #### CK, PT, MG, HS TROP, CBC, CMP, BNP ####[place] [address] USAALT [Catalytic activity/Vol]21 U/LNormal7-52The [facility] Health Physician GroupComment on above:Performed By: #### CK, PT, MG, HS TROP, CBC, CMP, BNP ####[place] [address] USAAnion gap [Moles/Vol]22.9 mmol/LHigh6.0-15.0The [facility] Health Physician GroupComment on above:Performed By: #### CK, PT, MG, HS TROP, CBC, CMP, BNP ####[place] [address] USAAST [Catalytic activity/Vol]24 U/LHwwbyz32-05Bet [facility] Health Physician GroupComment on above:Performed By: #### CK, PT, MG, HS TROP, CBC, CMP, BNP ####[place] [address] USABilirubin [Mass/Vol] 0.7 mg/dLNormal0.3-1.0The [facility] Physician GroupComment on above:Performed By: #### CK, PT, MG, HS TROP, CBC, CMP, BNP ####[place] [address] USACalcium [Mass/Vol]8.9 mg/dLNormal 8.6-10.3The [facility] Health Physician GroupComment on above:Performed By: #### CK, PT, MG, HS TROP, CBC, CMP, BNP ####[place] [address] USAChloride [Moles/Vol]97 mmol/FXcb59-414Lnu [facility] Physician GroupComment on above:Performed By: #### CK, PT, MG, HS TROP, CBC, CMP, BNP ####[place] [address] USACO2 [Moles/Vol]19.5 mmol/LLow21.0-31.0The [facility] Health Physician GroupComment on above:Performed By: #### CK, PT, MG, HS TROP, CBC, CMP, BNP ####[place] [address] USACreatinine [Mass/Vol] 9.89 mg/dLHigh0.70-1.30The [facility] Health Physician GroupComment on above:Performed By: #### CK, PT, MG, HS TROP, CBC, CMP, BNP ####[place] [address] USACreatinine Clr Calc Pvezdwvz37.86 NormalThe Ecu Health Physician GroupComment on above:Performed By: #### CK, PT, MG, HS TROP, CBC, CMP, BNP ####[place] [address] USAEstimated GFR6.278 mL/MinNormalThe Ecu Health Physician GroupComment on above:Performed By: #### CK, PT, MG, HS TROP, CBC, CMP, BNP ####[place] [address] USAGlobulin (S) [Mass/Vol]3.0 g/dLNormalThe [facility] Health Physician GroupComment on above:Performed By: #### CK, PT, MG, HS TROP, CBC, CMP, BNP ####[place] [address] USAGlucose [Mass/Vol]127 mg/gUNxiz48-665Kxo [facility] Health Physician GroupComment on above:Result Comment: Random Glucose Reference Range is dependent on time and content of last meal. Glucose of more than 200 mg/dL in a nonstressed, ambulatory subject supports the diagnosis of Diabetes Mellitus. ADA recommended reference rangePerformed By: #### CK, PT, MG, HS TROP, CBC, CMP, BNP ####[place] [address] USAPotassium [Moles/Vol]6.4 mmol/LOff scale high 3.5-5.1The [facility] Health Physician GroupComment on above:Result Comment: Critical Result Called to and read back by: ANGELIQUE MEYER at: 11/01/2024 21:34:39 b y:[id number] By: #### CK, PT, MG, HS TROP, CBC, CMP, BNP ####[place] [address] USAProtein [Mass/Vol]6.9 g/dLNormal6.4-8.9The [facility] Health Physician GroupComment on above:Performed By: #### CK, PT, MG, HS TROP, CBC, CMP, BNP ####[place] [address] USASodium [Moles/Vol]133 mmol/TLmb765-849Fsv [facility] Health Physician GroupComment on above:Performed By: #### CK, PT, MG, HS TROP, CBC, CMP, BNP ####[place] [address] USAUrea nitrogen [Mass/Vol]100 mg/dLHigh7-25The [facility] Health Physician GroupComment on above:Performed By: #### CK, PT, MG, HS TROP, CBC, CMP, BNP ####[place] [address] [place] Creatine Kinaseon 82-88-4075FI [Catalytic activity/Vol]226 U/ZMtul66-666Daf [facility] Physician GroupComment on above:Performed By: #### CK, PT, MG, HS TROP, CBC, CMP, BNP ####[facility] [address] [place] [address] USACreatine kinase [Enzymatic activity/volume] in Serum or Plasma Ordered By: Hector Mann on 30-38-5428PZ [Catalytic activity/Vol]Creatine kinase [Enzymatic activity/volume] in Serum or AnufsgDlmh73-965OdwdwkrwyCorey HospitalCreatinine [Mass/volume] in Serum or PlasmaOrdered By: Hector Mann on 75-39-6387Mopydsirlx [Mass/Vol]Creatinine [Mass/volume] in Serum or PlasmaHigh0.70-1.30Corey HospitalDipstick and Microscopicon 93-66-4117Kugshryfth (U)ClearNormalClearSt. Vincent'S [facility] Center Southside Physician GroupComment on above:Order Comment: Name Collection Type:: Clean-Voided MidstreamPerformed By: #### ADDONUAPLUS ####[place] [address] [place] [address] USABacteria,UrineRareNormalNone SeenSt. Vincent'S Medical Center Southside Physician GroupComment on above:Order Comment: Name Collection Type:: Clean- Voided MidstreamPerformed By: #### ADDONUAPLUS ####[address] [address] USABilirubin,UrineNegativeNormal[address] [facility] Physician GroupComment on above:Order Comment: Name Collection Type:: Clean-Voided MidstreamPerformed By: #### ADDONUAPLUS ####[place] [address] [place] [address] USAColor (U)Light-Yellow NormalYellowSt. Vincent'S Medical Center Southside Physician GroupComment on above:Order Comment: Name Collection Type:: Clean-Voided MidstreamPerformed By: #### ADDONUAPLUS ####[place] [address] [place] [address] USAGlucose Ql (U)200 mg/dLHighMelbourne Regional Medical Center Physician GroupComment on above:Order Comment: Name Collection Type:: Clean-Voided MidstreamPerformed By: #### ADDONUAPLUS ####[address] [address] USAHyaline Casts,UrineNoneNormal0-8The [facility] Health Physician GroupComment on above:Order Comment: Name Collection Type:: Clean-Voided MidstreamResult Comment: PERFORMED BY:[place] [address], [place] [phone] MEDICAL DIRECTORCRISTHIAN HUFF M.D. Performed By: #### ADDONUAPLUS ####[address] [address] USAKetones Ql (U)NegativeNormalNegativeSt. Vincent'S Medical Center Southside Physician GroupComment on above:Order Comment: Name Collection Type:: Clean- Voided MidstreamPerformed By: #### ADDONUAPLUS ####[address] [address] USALeukocyte esterase Test strip Ql (U) NegativeNormalNegativeSt. Vincent'S [facility] Center Southside Physician GroupComment on above:Order Comment: Name Collection Type:: Clean-Voided MidstreamPerformed By: #### ADDONUAPLUS ####[address] [address] USANitrite,UrineNegativeNormalNegativeSt. Vincent'[facility] Southside Physician GroupComment on above:Order Comment: Name Collection Type:: Clean-Voided MidstreamPerformed By: #### ADDONUAPLUS ####[address] [address] USAOccult Blood,Urine2+HighNegativeSt. Vincent'S Medical Center Southside Physician GroupComment on above:Order Comment: Name Collection Type:: Clean- Voided MidstreamResult Comment: PERFORMED BY:[place] [address] [address] [place], [place] [phone] MEDICAL DIRECTORCRISTHIAN HUFF M.D.Performed By: #### ADDONUAPLUS ####[place] [address] USApH (U)7.0 [pH]Normal 5.0-9.0The [facility] Health Physician GroupComment on above:Order Comment: Name Collection Type:: Clean-Voided MidstreamPerformed By: #### ADDONUAPLUS ####[place] [address] USAProtein (U) [Mass/Vol]200 mg/dLHighNegativeThe Ecu Health Physician GroupComment on above:Order Comment: Name Collection Type:: Clean-Voided MidstreamPerformed By: #### ADDONUAPLUS ####[place] [address] USARBC,Rclhm97-34Fsyr3-7Mcq [facility] Health Physician GroupComment on above: Order Comment: Name Collection Type:: Clean-Voided MidstreamPerformed By: #### ADDONUAPLUS ####[place] [address] USASpecificy [place],Urine1.835Nndoha5.001-1.030The [facility] Health Physician GroupComment on above:Order Comment: Name Collection Type:: Clean-Voided MidstreamPerformed By: #### ADDONUAPLUS ####[place] [address] USASquamous Epithelial Cell,Ruipo4-5Gngjvc8-8Has [facility] Health Physician GroupComment on above:Order Comment: Name Collection Type:: Clean-Voided MidstreamPerformed By: #### ADDONUAPLUS ####[place] [address] USAUrobilinogen,UrineNormalNormal NormalThe [facility]cu Health Physician GroupComment on above:Order Comment: Name Collection Type:: Clean-Voided MidstreamPerformed By: #### ADDONUAPLUS ####[address] [address] [place] WBC,Qwrng6-8Jkumuh3-8Anx [facility] Health Physician GroupComment on above:Order Comment: Name Collection Type:: Clean-Voided MidstreamPerformed By: #### ADDONUAPLUS ####[address] [place] [address] USAECG 12 lead ECGon 50-58-5318ATB 12 lead ECGNormHCA Florida Suwannee Emergency Physician GroupEosinophils Auto (Bld) [#/Vol]Ordered By: Hector Mann on 34-73-7439Jvlhbfrhrhk (Bld) [#/Vol]Automated eosinophil count0.0-0.45Corey HospitalEosinophils/100 WBC Auto (Bld)Ordered By: Hector Mann on 52-64-0979Istwbmvizdy/100 WBC (Bld)Automated eosinophil %.Corey HospitalEpithelial cells.squamous [#/area] in Urine sediment by Automated countOrdered By: Hector Mann on 43-06-6008Pesppzzplf cells.squamous Auto (Urine sed) [#/Area]Epithelial cells.squamous [#/area] in Urine sediment by Automated count0-2FMansfield HospitalErythrocyte distribution width Auto (RBC) [Ratio]Ordered By: Hector Mann on 51-40-6545Yczwznrcxso distribution width (RBC) [Ratio]Erythrocyte distribution width [Ratio] by Automated govdoWkqh29.0-14.8Corey HospitalErythrocytes [#/area] in Urine sediment by Automated countOrdered By: Hector Mann on 73-33-2034UDB Auto (Urine sed) [#/Area]Erythrocytes [#/area] in Urine sediment by Automated countHigh0-4FMansfield HospitalGlobulin Calc (S) [Mass/Vol]Ordered By: Hector Mann on 61-21-6938Ytiidbkq (S) [Mass/Vol]Serum globulin measurement by calculation (mass/volume)Corey HospitalGlucose Glucometer (BldC) [Mass/Vol]Ordered By: Hector Mann on 24-26-9146Bwaxcbf [Mass/Vol]Capillary blood glucose measurement by glucometer (mass/volume)Corey HospitalComment on above:Random Glucose Reference Range is dependent on time and content of last meal. Glucose of more than 200 mg/dL in a nonstressed, ambulatory subject supports the diagnosis of Diabetes Mellitus.Glucose Poct Glucometerson 93-22-2578Hgcsemw4Toa6: Cleaned MeterNormHCA Florida Suwannee Emergency Physician GroupComment on above:Result Comment: PERFORMED BY:[facility] [place], [place] [phone] MEDICAL DIRECTORCRISTHIAN HUFF M.D. Performed By: #### GLULS ####Point of Care testing,Glucose [Mass/Vol]128 mg/dL NormalThe Ecu Health Physician GroupComment on above:Result Comment: Random Glucose Reference Range is dependent on time and content of last meal. Glucose of more than 200 mg/dL in a nonstressed, ambulatory subject supports the diagnosis of Diabetes Mellitus.Performed By: #### GLULS ####Point of Care testing,Glucose [Mass/volume] in Serum or PlasmaOrdered By: Hector Mann on 63-46-1178Gwctomz [Mass/Vol]Glucose [Mass/volume] in Serum or TdreceHiwj00-424 Corey HospitalComment on above:ADA recommended reference rangeRandom Glucose Reference Range is dependent on time and content of last meal. Glucose of more than 200 mg/dL in a nonstressed, ambulatory subject supports the diagnosisof Diabetes Mellitus.Glucose [Mass/volume] in Urine by Test stripOrdered By: Hector Mann on 08-44-1220Snkijqy Test strip (U) [Mass/Vol]Glucose [Mass/volume] in Urine by Test stripHighNormalCorey HospitalHematocrit Auto (Bld) [Volume fraction]Ordered By: Hector Mann on 38-39-0916Yatvnbmujg (Bld) [Volume fraction]Hematocrit [Volume Fraction] of Blood by Automated ukauaKza18.8-50.0Corey HospitalHemoglobin Test strip Ql (U)Ordered By: Hector Mann on 11-01-2024 Hemoglobin Ql (U)Hemoglobin [Presence] in Urine by Test stripHighNegative Corey HospitalHemoglobin [Mass/volume] in BloodOrdered By: Hector Mann on 72-59-9690Pnnzvmssho (Bld) [Mass/Vol]Hemoglobin [Mass/volume] in WgrenTes31.0-17.0Corey HospitalHyaline casts [#/area] in Urine sediment by Automated countOrdered By: Hector Mann on 60-13-0735Fcvwsdn casts Auto (Urine sed) [#/Area]Hyaline casts [#/area] in Urine sediment by Automated count0-8Corey HospitalINR in Platelet poor plasma by Coagulation assayOrdered By: Hector Mann on 78-46-2277JSD Coag (PPP) [Relative time]INR in Platelet poor plasma by Coagulation assayCorey HospitalComment on above:INR Therapeutic Range A) Pre- and Peroperative OAT started two weeks before surgery. NOT HIP SURGERY: 1.5 - 2.5 HIP SURGERY: 2 - 3B) Primary and secondary prevention of venous THROMBOSIS: 2 - 3C) Active venous thrombosis, pulmonary embolismand prevention of recurrent venous thrombosis: 2 - 3D) Prevention of arterial thromboembolismincluding patients with mechanical heart valves: 3 - 4.5Ketones Test strip Ql (U)Ordered By: Hector Mann on 86-89-4021Gwqqdga Ql (U)Ketones [Presence] in Urine by Test stripNegativeCorey HospitalLaboratory - Microbiology and Antimicrobial susceptibilityOrdered By: Hector Mann on 43-59-0036Jfvppwbj identified Cx Nom (Bld)NO GROWTH 5 DAYSCorey HospitalBacteria identified Cx Nom (Bld)NO GROWTH 5 DAYSCorey HospitalLactate [Moles/volume] in Serum or PlasmaOrdered By: Hector Mann on 65-70-7587Bmvlddb [Moles/Vol]Lactate [Moles/volume] in Serum or Plasma0.5-1.9Corey HospitalComment on above:Lactic Acid reference range has been updated to 0.5 1.9 mmol/L and the critical range of 2.0 or greater.Lactic Acidon 11-01-2024 Lactate [Moles/Vol]0.5 mmol/LNormal0.5-1.9The [facility] Health Physician GroupComment on above:Result Comment: Lactic Acid reference range has been updated to 0.5 ? 1.9 mmol/L and the critical range of 2.0 or greater.PERFORMED BY:[facility], [place] [phone] MEDICAL DIRECTORCRISTHIAN HUFF M.D.Performed By: #### LACTIC ####[facility] [place] [address] [facility] Leukocyte esterase [Presence] in Urine by Test stripOrdered By: Hector Mann on 31-74-7080Ejpzzecri esterase Test strip Ql (U)Leukocyte esterase [Presence] in Urine by Test stripNegativeCorey HospitalLeukocytes [#/area] in Urine sediment by Automated countOrdered By: Hector Mann on 64-56-2641CNU Auto (Urine sed) [#/Area]Leukocytes [#/area] in Urine sediment by Automated count0-4FMansfield HospitalLeukocytes [#/volume] corrected for nucleated erythrocytes in Blood by Automated counOrdered By: Hector Mann on 48-17-8916DZF corrected for nucl RBC Auto (Bld) [#/Vol]Leukocytes [#/volume] corrected for nucleated erythrocytes in Blood by Automated coun4.1-10.5FMansfield HospitalLymphocytes Auto (Bld) [#/Vol]Ordered By: Hector Mann on 19-59-9052Gyzvkclffnl (Bld) [#/Vol]Lymphocytes [#/volume] in Blood by Automated countLow1.00-4.8Corey HospitalLymphocytes/100 WBC Auto (Bld)Ordered By: Hector Mann on 31-21-6160Ynuneoduzac/100 WBC (Bld) Lymphocytes/100 leukocytes in Blood by Automated count.[facility] Auto (RBC) [Entitic mass]Ordered By: Hector Mann on 22-17-3785IWE (RBC) [Entitic mass]MCH [Entitic mass] by Automated count27.5-35.2 [facility] HospitalHC Auto (RBC) [Mass/Vol]Ordered By: Hector Mann on 71-11-0864TLJQ (RBC) [Mass/Vol]MCHC [Mass/volume] by Automated count 32.5-35.6FPremier Health Upper Valley Medical CenterV Auto (RBC) [Entitic vol]Ordered By: Hector Mann on 35-95-2361ZHF (RBC) [Entitic vol]MCV [Entitic volume] by Automated count83.5-101Corey HospitalMagnesiumon 11-01-2024 Magnesium [Mass/Vol]2.8 mg/dLHigh1.9-2.7The [facility] Health Physician GroupComment on above:Result Comment: PERFORMED BY:[facility] [place], [place] [phone] MEDICAL DIRECTORCRISTHIAN EDDY M.D.Performed By: #### CK, PT, MG, HS TROP, CBC, CMP, BNP ####[facility] [place] [id number] [facility] Magnesium [Mass/volume] in Serum or PlasmaOrdered By: Hector Mann on 02-26-4939Tazullcaf [Mass/Vol]Magnesium [Mass/volume] in Serum or PlasmaHigh 1.9-2.7FMansfield HospitalMonocyte distribution width [Entitic volume] in Blood by AutomatedOrdered By: Hector Mann on 82-57-5093Ttcgbczz distribution width Auto (Bld) [Entitic vol]Monocyte distribution width [Entitic volume] in Blood by Automated0.00-20.00[facility] Monocytes Auto (Bld) [#/Vol]Ordered By: Hector Mann on 13-61-2430Utbiqklud (Bld) [#/Vol]Automated blood monocyte count0.0-0.8[facility]y HospitalMonocytes/100 WBC Auto (Bld)Ordered By: Hector Mann on 11-01-2024 Monocytes/100 WBC (Bld)Automated monocyte %.[facility] Natriuretic peptide B [Mass/Vol]Ordered By: Hector Mann on 11-01-2024 Natriuretic peptide B (Bld) [Mass/Vol]BNP ser/plasHigh5-100Corey HospitalNeutrophils Auto (Bld) [#/Vol]Ordered By: Hector Mann on 49-38-4809Hndiihsquey (Bld) [#/Vol]Neutrophils [#/volume] in Blood by Automated count1.8-7.7FMansfield HospitalNeutrophils/100 WBC Auto (Bld) Ordered By: Hector Mann on 76-50-5634Rlwrxkuiadg/100 WBC (Bld)Automated neutrophil %.[facility] HospitalNitrite Test strip Ql (U)Ordered By: Hector Mann on 92-76-9693Garjjgo Ql (U)Nitrite [Presence] in Urine by Test stripNegFulton County Health CenterNo Panel InformationOrdered By: Hector Mann on 70-24-7512Faswcoqtg GFR (CKD-EPI)6.278 mL/MinCorey HospitalPharmacy Creatinine Clearance (Chem10.86[facility] HospitalBedside Glucose CommentGlu2: cleaned meterCorey HospitalNucleated erythrocytes [Presence] in Blood by Automated count Ordered By: Hector Mann on 77-72-2450Zxzzcztmo RBC Auto Ql (Bld)Nucleated erythrocytes [Presence] in Blood by Automated count0-0.5FMansfield HospitalPlatelet mean volume Auto (Bld) [Entitic vol]Ordered By: Hector Mann on 41-99-9146Vdmgsxkl mean volume (Bld) [Entitic vol]Platelet mean volume [Entitic volume] in Blood by Automated count6.6-10.1FMansfield HospitalPlatelets Auto (Bld) [#/Vol]Ordered By: Hector Mann on 74-14-3853Fxzhbcsiu (Bld) [#/Vol]Platelets [#/volume] in Blood by Automated xevgiYtw176-062ZjvwuamwtCorey HospitalPotassium [Moles/volume] in Serum or PlasmaOrdered By: Hector Mann on 11-42-0065Khqinjpuk [Moles/Vol] Potassium [Moles/volume] in Serum or PlasmaCritically high3.5-5.1FMansfield HospitalComment on above:Critical Result Called to and read back by: ANGELIQUE MEYER at: 11/01/2024 21:34:39 by:[id number] Test strip (U) [Mass/Vol]Ordered By: Hector Mann on 11-25-4822Wwynqzf (U) [Mass/Vol]Protein [Mass/volume] in Urine by Test stripHighNegFulton County Health CenterProtein [Mass/volume] in Serum or PlasmaOrdered By: Hector Mann on 54-08-3713Iybikoi [Mass/Vol]Protein [Mass/volume] in Serum or Plasma6.4-8.9 [facility] HospitalProthrombin Time INRon 60-26-8171UMS Coag (PPP) [Relative time]1.2 {INR}NormalThe Ecu Health Physician GroupComment on above: Result Comment: INR Therapeutic Range [...] with mechanical heart valves: 3 - 4.5PERFORMED BY:[address] [place], [place] [phone] MEDICAL DIRECTORCRISTHIAN EDDY M.D.Performed By: #### CK, PT, MG, HS TROP, CBC, CMP, BNP ####[id number] [place] [address] USAPT Coag (PPP) [Time]13.5 sHigh9.0-12.9The Ecu Health Physician GroupComment on above: Result Comment: A hematocrit value greater than 55% may lead to inaccurate results in coagulation testing. Patients having hematocrit values >55% require a special collection tube for coagulation studies. Please contact the laboratory at [phone] for redraw instructions.Performed By: #### CK, PT, MG, HS TROP, CBC, CMP, BNP ####[address] [address] USAProthrombin time (PT)Ordered By: Hector Mann on 02-87-2226XW Coag (PPP) [Time]Prothrombin time (PT)High9.0-12.9[facility] Comment on above:A hematocrit value greater than 55% may lead to inaccurate results in coagulation testing. Patientshaving hematocrit values >55% require a special collection tube for coagulation studies. Please contact the laboratory at [phone] for redraw instructions.RBC Auto (Bld) [#/Vol]Ordered By: Hector Mann on 33-00-1943ZGY (Bld) [#/Vol]Erythrocytes [#/volume] in Blood by Automated countLow3.90-5.60[facility] HospitalRespiratory (Upper) Panel, PCRon 18-92-2145Xxjxhmkvdpp (Upper) Panel, PCRNormHCA Florida Suwannee Emergency Physician GroupComment on above:Performed By: #### RESP PANEL UPP., BIOFIRECOVNOTDE ####[facility] [place] [address] USARespiratory pathogens DNA and RNA panel - Nasopharynx by HAO with non- probe detectionOrdered By: Hector Mann on 72-71-5380Itjmyubzxdr pathogens DNA and RNA panel HAO+non-probe (Nph)Respiratory pathogens DNA and RNA panel - Nasopharynx by HAO with non-probe detectionCorey Hospital Serum or plasma albumin/globulin mass ratioOrdered By: Hector Mann on 39-18-9507Xthxsqy/Globulin [Mass ratio]Serum or plasma albumin/globulin mass ratioMagruder Memorial Hospitalerum or plasma anion gap determination Ordered By: Hector Mann on 10-33-8946Bxxqe gap [Moles/Vol]Serum or plasma anion gap determinationHigh6.0-15.0Magruder Memorial Hospitalodium [Moles/volume] in Serum or PlasmaOrdered By: Hector Mann on 52-05-4983Pqcedp [Moles/Vol]Sodium [Moles/volume] in Serum or QcahazEtd423-942JqroudeaiMagruder Memorial Hospitalpecific gravity Test strip (U) [Rel density]Ordered By: Hector Mann on 02-41-6251Sbnsezvk gravity (U) [Rel density]Specific gravity of Urine by Test strip1.001-1.030Corey HospitalTroponin I High Sensitivityon 78-44-3612Mkhlqnjw I High Dsyeqpljdad33Whj scale high0-20The Ecu Health Physician GroupComment on above:Result Comment: Critical Result : Called to and read back by: ENRIQUE RICO at: 11/01/2024 23:00:13by:[id number] The Troponin units of report have been changed to meet the Chest Pain Accreditation requirement, element EC5.M1l2. Troponin units are changed from pg/ml to ng/L. Also, the decimal is removed and results are in whole numbers.PERFORMED BY:[address] [place], [place] [phone] MEDICAL DIRECTORCRISTHIAN HUFF M.D. Performed By: #### CK, PT, MG, HS TROP, CBC, CMP, BNP ####[facility] [id number] [place] [address] USATroponin I.cardiac [Mass/volume] in Serum or Plasma by Detection limit <= 0.01 ng/Ordered By: Hector Mann on 19-59-6642Ekxcjnaj I.cardiac DL <= 0.01 ng/mL [Mass/Vol]Troponin I.cardiac [Mass/volume] in Serum or Plasma by Detection limit <= 0.01 ng/ Critically high0-20Corey HospitalComment on above:Critical Result : Called to and read back by: ENRIQUE RICO at: 11/01/2024 23:00:13 by:[id number] units of report have been changed to meet the Chest Pain Accreditation requirement, element EC5.M1l2. Troponin units are changed from pg/ml to ng/L. Also, the decimal is removed and results are in whole numbers. Urea nitrogen [Mass/volume] in Serum or PlasmaOrdered By: Hector Mann on 47-43-3334Vqcg nitrogen [Mass/Vol]Urea nitrogen [Mass/volume] in Serum or Plasma [facility]7-25Corey HospitalUrobilinogen Test strip (U) [Mass/Vol] Ordered By: Hector Mann on 31-53-9345Jkxftiqlbyuz (U) [Mass/Vol]Urobilinogen [Mass/volume] in Urine by Test stripNormalCorey HospitalWBC Auto (Bld) [#/Vol]Ordered By: Hector Mann on 00-73-8068DJN (Bld) [#/Vol] Leukocytes [#/volume] in Blood by Automated count4.1-10.5FMansfield HospitalpH Test strip (U)Ordered By: Hector Mann on 44-42-7264cO (U)pH of Urine by Test strip5.0-9.0Corey HospitalClinical Supporton 86-92-0036Mogjwujv [id number] Yoel Tamayo 1985 M Date Provider Department Center 10/27/2024 [id number] SINHA R[facility] Family History Problem Relation Age of Onset Pancreatic cancer Mother Diabetes Mother Liver disease Mother Hypertension Father Irritable bowel syndrome Father Stroke Father Coronary artery disease Brother 55 Lung cancer Paternal Grandmother Coronary artery disease Paternal Grandfather Family Status - Relation Status Age at Mother Father Alive Brother Paternal Grandmother Paternal Grandfather Reason for Visit and Comments: Psychiatric Evaluation [390093][facility] Telephoneon [id number] Yoel Tamayo 1985 M Date Provider Department Center 10/27/2024 TIANA BUSCH [facility] VASC LAB UT HeartVAS Family History Problem Relation Age of Onset Pancreatic cancer Mother Diabetes Mother Liver disease Mother Hypertension Father Irritable bowel syndrome Father Stroke Father Coronary artery disease Brother 55 Lung cancer Paternal Grandmother Coronary artery disease Paternal Grandfather Family Status - Relation Status Age at Mother Father Alive Brother Paternal Grandmother Paternal GrandfatherNChildren's Hospital for Rehabilitation36on Patient confirmed time change of his appointments on 11/03/24. The start time was moved from 1pm to 8am. Patient will have Vascular US of LE, lab work, and then MURIEL. Patient instructed to check in at registration.[facility]ders Only on 07-55-0684Ekgywd [id number] Yoel Tamayo 1985 M Date Provider Department Center 09/24/2024 LANCE SAWANT [facility] VAS LAB SD HeartVAS Family History Problem Relation Age of Onset Pancreatic cancer Mother Diabetes Mother Liver disease Mother Hypertension Father Irritable bowel syndrome Father Stroke Father Coronary artery disease Brother 55 Lung cancer Paternal Grandmother Coronary artery disease Paternal Grandfather Family Status - Relation Status Age at Mother Father Alive Brother Paternal Grandmother Paternal GrandfatherNormalACMC Healthcare System GlenbeighBasic Metabolic Panelon 14-85-4107Iulmm gap [Moles/Vol]12.4 mmol/LNormal6.0-15.0The Ecu Health Physician GroupComment on above:Performed By: #### CBC, BMP ####[facility] [address] [place] [address] USACalcium [Mass/Vol]8.6 mg/dLNormal8.6-10.3The [facility] Physician [facility] GulfportComment on above:Performed By: #### CBC, BMP ####[address] [place] [address] USAChloride [Moles/Vol]95 mmol/RWql26-526Lfa [facility]ician [facility] Comment on above:Performed By: #### CBC, BMP ####[address] [address] USACO2 [Moles/Vol]29.1 mmol/LNormal 21.0-31.0The [facility] Physician [facility] GulfportComment on above:Performed By: #### CBC, BMP ####[address] [address] [place] Creatinine [Mass/Vol]5.04 mg/dLSignificant change up0.70-1.30The [facility] Physician [facility] GulfportComment on above:Performed By: #### CBC, BMP ####[id number] USACreatinine Clr Calc Prxxlhau78.04NormHCA Florida Suwannee Emergency Physician [facility] GulfportComment on above:Result Comment: PERFORMED BY:[address] [place], [place] [phone] MEDICAL DIRECTORCRISTHIAN HUFF M.D. Performed By: #### CBC, BMP ####[address] [address] USAEstimated GFR14.096 mL/MinNoSampson Regional Medical Center Physician [facility] GulfportComment on above:Performed By: #### CBC, BMP ####[id number] USAGlucose [Mass/Vol]136 mg/cYDbyt20-565Cpf [facility]ician [facility] GulfportComment on above:Result Comment: Random Glucose Reference Range is dependent on time and content of last meal. Glucose of more than 200 mg/dL in a nonstressed, ambulatory subject supports the diagnosis of Diabetes Mellitus. ADA recommended reference rangePerformed By: #### CBC, BMP ####[id number] USAPotassium [Moles/Vol]4.5 mmol/LNormal3.5-5.1The [facility] Health Physician GroupComment on above:Performed By: #### CBC, BMP ####[address] [address] USASodium [Moles/Vol]132 mmol/LLow 136-145The [facility] Health Physician GroupComment on above:Performed By: #### CBC, BMP ####[address] [place] [address] USAUrea nitrogen [Mass/Vol]33 mg/dLHigh7-25The [facility] Health Physician GroupComment on above:Performed By: #### CBC, BMP ####[address] [address] USABasophils Auto (Bld) [#/Vol]Ordered By: Enrique Kirby on 68-30-2519Vqdlvykrx (Bld) [#/Vol]Automated basophil count0.0-0.2 [facility] HospitalBasophils/100 WBC Auto (Bld)Ordered By: Enrique Kirby on 97-30-9478Mvlnjamhb/100 WBC (Bld)Automated basophil %.Corey HospitalC reactive protein [Mass/volume] in Serum or Plasma Ordered By: Crow Conte on 15-59-8006KDH [Mass/Vol]C reactive protein [Mass/volume] in Serum or PlasmaHigh0.0-0.5FMansfield HospitalC- Reactive Proteinon 94-75-8934C-Reactive Protein1.3 mg/dLHigh0.0-0.5The [facility]cu Health Physician GroupComment on above:Order Comment: Comment May add to existing blood workResult Comment: PERFORMED BY:[address] [place], [place] [phone] MEDICAL DIRECTORCRISTHIAN HUFF M.D.Performed By: #### CRP ####[address] [address] USACT chest wo conon 42-53-1333QA chest wo con NormalThe [facility] Physician [facility] GulfportCalcium [Mass/volume] in Serum or Plasma Ordered By: Enrique Kirby on 84-21-9411Azmvgac [Mass/Vol]Calcium [Mass/volume] in Serum or Plasma8.6-10.3FMansfield HospitalCarbon dioxide, total [Moles/volume] in Serum or PlasmaOrdered By: Enrique Kirby on 18-02-2595PL0 [Moles/Vol]Carbon dioxide, total [Moles/volume] in Serum or Wkumdv95.0-31.0 Corey HospitalChloride [Moles/volume] in Serum or Plasma Ordered By: Enrique Kirby on 14-66-5926Tsevsxda [Moles/Vol]Chloride [Moles/volume] in Serum or PfytisPsj11-292BsgyxkmzvCorey Hospital Complete Blood Count Auto Diffon 26-19-9773Lfvzaxkhc (Bld) [#/Vol]0.0 10*3/uL Normal0.0-0.2The [facility] Health Physician GroupComment on above:Result Comment: PERFORMED BY:[address] [place], [place] [phone] MEDICAL DIRECTORCRISTHIAN HUFF M.D. Performed By: #### CBC, BMP ####[address] [address] USABasophils/100 WBC (Bld)1.3 %Normal.The [facility] Health Physician GroupComment on above:Performed By: #### CBC, BMP ####[address] [address] USAEosinophils (Bld) [#/Vol]0.1 10*3/uLNormal0.0-0.45The [facility] Health Physician GroupComment on above: Performed By: #### CBC, BMP ####[address] [address] USAEosinophils/100 WBC (Bld)3.0 %Normal.The [facility] Health Physician GroupComment on above:Performed By: #### CBC, BMP ####[address] [address] USAErythrocyte distribution width (RBC) [Ratio]14.3 %Edeeaw23.0-14.8The [facility]cu Health Physician GroupComment on above:Performed By: #### CBC, BMP ####[place] [address] USAHematocrit (Bld) [Volume fraction] 29.6 %Low38.8-50.0The [facility] Health Physician GroupComment on above:Performed By: #### CBC, BMP ####[place] [address] USAHemoglobin (Bld) [Mass/Vol]9.8 g/dLLow13.0-17.0The [facility] Health Physician GroupComment on above:Performed By: #### CBC, BMP ####[place] [address] USALymphocytes (Bld) [#/Vol]0.3 10*3/uL Low1.00-4.8The [facility] Health Physician GroupComment on above:Performed By: #### CBC, BMP ####[place] [address] [place] Lymphocytes/100 WBC (Bld)15.3 %Normal.The [facility] Health Physician GroupComment on above:Performed By: #### CBC, BMP ####[address] StreetMCH (RBC) [Entitic mass]28.3 xuBvgvol86.5-35.2The [facility] Health Physician GroupComment on above:Performed By: #### CBC, BMP ####[address]MCV (RBC) [Entitic vol]85.1 lHWmyfyc71.5-101The [facility] Health Physician GroupComment on above:Performed By: #### CBC, BMP ####[place] [address] USAMean Corpuscular HGB Conc33.2 g/xZJvlogh24.5-35.6The [facility] Health Physician GroupComment on above:Performed By: #### CBC, BMP ####[place] [address] [place] Monocytes (Bld) [#/Vol]0.3 10*3/uLNormal0.0-0.8The [facility] Comment on above:Performed By: #### CBC, BMP ####[place] [address] USAMonocytes/100 WBC (Bld)12.4 %Normal. The [facility] Health Physician GroupComment on above:Performed By: #### CBC, BMP ####[place] [address] [place] Neutrophils (Bld) [#/Vol]1.5 10*3/uLLow1.8-7.7The [facility] Comment on above:Performed By: #### CBC, BMP ####[place] [address] USANeutrophils/100 WBC (Bld)68.0 %Normal. The [facility] Health Physician GroupComment on above:Performed By: #### CBC, BMP ####[place] [address] USANRBC% 0.3 /100{WBC}Normal0-0.5The [facility] Health Physician GroupComment on above:Performed By: #### CBC, BMP ####[place] [address] USAPlatelet mean volume (Bld) [Entitic vol]7.6 fLNormal6.6-10.1The [facility] Health Physician GroupComment on above:Performed By: #### CBC, BMP ####[place] [address] [place] Platelets (Bld) [#/Vol]113 10*3/fWTlk419-830Vtm [facility] Health Physician GroupComment on above:Performed By: #### CBC, BMP ####[place] [address] USARBC (Bld) [#/Vol]3.47 10*6/uLLow3.90-5.60The [facility] Health Physician GroupComment on above:Performed By: #### CBC, BMP ####[address] [place] [address] USAWBC (Bld) [#/Vol]2.3 10*3/uLLow4.1-10.5The [facility] Health Physician GroupComment on above:Performed By: #### CBC, BMP ####[facility] [address] [place] [address] USACreatinine [Mass/volume] in Serum or PlasmaOrdered By: Enrique Kirby on 51-51-2644Roqfkrxdol [Mass/Vol]Creatinine [Mass/volume] in Serum or PlasmaInvalid Interpretation Code0.70-1.30Corey HospitalComment on above:Delta: 6.71 on 09/16/24-045Eosinophils Auto (Bld) [#/Vol]Ordered By: Enrique Kirby on 26-03-9414Itcsxvugmpi (Bld) [#/Vol]Automated eosinophil count0.0-0.45Corey HospitalEosinophils/100 WBC Auto (Bld)Ordered By: Enrique Kirby on 72-79-6287Ibnwrdywytj/100 WBC (Bld) Automated eosinophil %.[facility]y HospitalErythrocyte distribution width Auto (RBC) [Ratio]Ordered By: Enrique Kirby on 15-99-4063Zuleiiewxlu distribution width (RBC) [Ratio]Erythrocyte distribution width [Ratio] by Automated count12.0-14.8Corey HospitalGlucose Glucometer (BldC) [Mass/Vol]Ordered By: Toney Riley on 34-72-8291Erivnoy [Mass/Vol] Capillary blood glucose measurement by glucometer (mass/volume)Corey HospitalComment on above:Random Glucose Reference Range is dependent on time and content of last meal. Glucose of more than 200 mg/dL in a nonstressed, ambulatory subject supports the diagnosis of Diabetes Mellitus. Glucose Poct Glucometerson 77-00-2876Wyjunwk [Mass/Vol]182 mg/dLNormalThe [facility]cu Health Physician GroupComment on above:Result Comment: Random Glucose Reference Range is dependent on time and content of last meal. Glucose of more than 200 mg/dL in a nonstressed, ambulatory subject supports the diagnosis of Diabetes Mellitus.PERFORMED BY:[address] [place], [place] [phone] MEDICAL DIRECTORCRISTHIAN EDDY M.D.Performed By: #### GLULS ####Point of Care testing,Glucose [Mass/Vol]199 mg/dLMelbourne Regional Medical Center Physician GroupComment on above:Result Comment: Random Glucose Reference Range is dependent on time and content of last meal. Glucose of more than 200 mg/dL in a nonstressed, ambulatory subject supports the diagnosis of Diabetes Mellitus.PERFORMED BY:[address] [place]NR[place]ríguezE[place], [place] [phone] MEDICAL DIRECTORCRISTHIAN HUFF M.D.Performed By: #### GLULS ####Point of Care testing,Glucose [Mass/Vol]165 mg/dLMelbourne Regional Medical Center Physician GroupComment on above:Result Comment: Random Glucose Reference Range is dependent on time and content of last meal. Glucose of more than 200 mg/dL in a nonstressed, ambulatory subject supports the diagnosis of Diabetes Mellitus.PERFORMED BY:[address] [place] [place], [place] [phone] MEDICAL DIRECTORCRISTHIAN HUFF M.D. Performed By: #### GLULS ####Point of Care testing,Mgwylfv7Wbn8: Cleaned Meter NormalSt. Vincent'S Medical Center Southside Physician GroupComment on above:Result Comment: PERFORMED BY:[address] [place] JIM[place], [place] [phone] MEDICAL DIRECTORCRISTHIAN HUFF M.D.Performed By: #### GLULS ####Point of Care testing,Glucose [Mass/Vol]221 mg/dLMelbourne Regional Medical Center Physician GlezComment on above:Result Comment: Random Glucose Reference Range is dependent on time and content of last meal. Glucose of more than 200 mg/dL in a nonstressed, ambulatory subject supports the diagnosis of Diabetes Mellitus. Performed By: #### GLULS ####Point of Care testing,Dapuwvf6Knp1: Cleaned Meter NormalSt. Vincent'S Medical Center Southside Physician GroupComment on above:Result Comment: PERFORMED BY:[address] BROOKLYNRodríguezEsaÓ[place]ARMEMPHIS, [place] [phone] MEDICAL DIRECTORCRISTHIAN HUFF M.D.Performed By: #### GLULS ####Point of Care testing,Glucose [Mass/Vol]226 mg/dLMelbourne Regional Medical Center Physician GroupComment on above:Result Comment: Random Glucose Reference Range is dependent on time and content of last meal. Glucose of more than 200 mg/dL in a nonstressed, ambulatory subject supports the diagnosis of Diabetes Mellitus. Performed By: #### GLULS ####Point of Care testing,Sozahqw6SmmsncHfnMelbourne Regional Medical Center Physician GroupComment on above:Result Comment: Glu2: WILL NOTIFY DR/RNPerformed By: #### GLULS ####Point of Care testing,Ymfizwm1QXCMXK HYPOGLYCEMICMelbourne Regional Medical Center Physician GroupComment on above:Result Comment: PERFORMED BY:[address] [place], [place] [phone] MEDICAL DIRECTORCRISTHIAN HUFF M.D.Performed By: #### GLULS ####Point of Care testing,Glucose [Mass/Vol]30 mg/dLOff scale lowSt. Vincent'S Medical Center Southside Physician GroupComment on above:Result Comment: Random Glucose Reference Range is dependent on time and content of last meal. Glucose of more than 200 mg/dL in a nonstressed, ambulatory subject supports the diagnosis of Diabetes Mellitus. Performed By: #### GLULS ####Point of Care testing,Yzyfjen1CdhuumXciMelbourne Regional Medical Center Physician GroupComment on above:Result Comment: Glu2: WILL NOTIFY DR/RNPerformed By: #### GLULS ####Point of Care testing,Mwozese9Oozl Repeat TestMelbourne Regional Medical Center Physician GroupComment on above:Result Comment: PERFORMED BY:[address] JIMENEZMEMPH[place], [place] [phone] MEDICAL DIRECTORCRISTHIAN HUFF M.D.Performed By: #### GLULS ####Point of Care testing,Glucose [Mass/Vol]32 mg/dLOff [facility] Physician GroupComment on above:Result Comment: Random Glucose Reference Range is dependent on time and content of last meal. Glucose of more than 200 mg/dL in a nonstressed, ambulatory subject supports the diagnosis of Diabetes Mellitus. Performed By: #### GLULS ####Point of Care testing,Glucose [Mass/volume] in Serum or PlasmaOrdered By: Enrique Kirby on 21-04-4898Vlzvuef [Mass/Vol]Glucose [Mass/volume] in Serum or PknrweYush79-248HrhmzlfatCorey Hospital Comment on above:ADA recommended reference rangeRandom Glucose Reference Range is dependent on time and content of last meal. Glucose of more than 200 mg/dL in a nonstressed, ambulatory subject supports the diagnosisof Diabetes Mellitus. Hematocrit Auto (Bld) [Volume fraction]Ordered By: Enrique Kirby on 09-17-2024 Hematocrit (Bld) [Volume fraction]Hematocrit [Volume Fraction] of Blood by Automated rzfgbZhq89.8-50.0Corey HospitalHemoglobin [Mass/volume] in BloodOrdered By: Enrique Kirby on 82-48-2059Oywadqoisz (Bld) [Mass/Vol]Hemoglobin [Mass/volume] in TxogwEba05.0-17.0Corey HospitalLeukocytes [#/volume] corrected for nucleated erythrocytes in Blood by Automated counOrdered By: Enrique Kirby on 85-42-4912BID corrected for nucl RBC Auto (Bld) [#/Vol]Leukocytes [#/volume] corrected for nucleated erythrocytes in Blood by Automated counLow4.1-10.5FMansfield HospitalLymphocytes Auto (Bld) [#/Vol]Ordered By: Enrique Kirby on 09-17-2024 Lymphocytes (Bld) [#/Vol]Lymphocytes [#/volume] in Blood by Automated countLow 1.00-4.8Corey HospitalLymphocytes/100 WBC Auto (Bld)Ordered By: Enrique Kirby on 62-94-9565Kxuxjndbeoy/100 WBC (Bld)Lymphocytes/100 leukocytes in Blood by Automated count.Corey HospitalMCH Auto (RBC) [Entitic mass]Ordered By: Enrique Kirby on 96-57-5028DIW (RBC) [Entitic mass]MCH [Entitic mass] by Automated count27.5-35.2FMansfield HospitalMCHC Auto (RBC) [Mass/Vol]Ordered By: Enrique Ninodar on 28-74-7414DOVP (RBC) [Mass/Vol]MCHC [Mass/volume] by Automated count32.5-35.6FMansfield HospitalMCV Auto (RBC) [Entitic vol]Ordered By: Enrique Kirby on 97-11-6805UGA (RBC) [Entitic vol]MCV [Entitic volume] by Automated count83.5-101 Corey HospitalMonocytes Auto (Bld) [#/Vol]Ordered By: Enrique Kirby on 27-36-6611Nltwnocbs (Bld) [#/Vol]Automated blood monocyte count 0.0-0.8Corey HospitalMonocytes/100 WBC Auto (Bld)Ordered By: Enrique Kirby on 53-94-2147Wfgntrzav/100 WBC (Bld)Automated monocyte %.Corey HospitalNeutrophils Auto (Bld) [#/Vol]Ordered By: Enrique Ninodar on 55-33-8889Cwyxufhexrk (Bld) [#/Vol]Neutrophils [#/volume] in Blood by Automated countLow1.8-7.7FMansfield HospitalNeutrophils/100 WBC Auto (Bld)Ordered By: Enrique Kirby on 24-71-0666Etfrldyssgo/100 WBC (Bld) Automated neutrophil %.Corey HospitalNo Panel Information Ordered By: Enrique Kirby on 92-31-2818Eytunbnne GFR (CKD-EPI)14.096 mL/Min [facility] HospitalPharmacy Creatinine Clearance (Chem20.04 [facility]14.096 mL/MinCorey Hospital 20.04Corey HospitalBedside Glucose CommentGlu2: cleaned meter [facility] HospitalGlu2: cleaned meterCorey HospitalBedside Glucose #2 CommentFollow hypoglycemicCorey HospitalFollow hypoglycemicCorey HospitalNucleated erythrocytes [Presence] in Blood by Automated countOrdered By: Enrique Kirby on 09-17-2024 Nucleated RBC Auto Ql (Bld)Nucleated erythrocytes [Presence] in Blood by Automated count0-0.5FMansfield HospitalPlatelet mean volume Auto (Bld) [Entitic vol]Ordered By: Enrique Kirby on 87-28-9146Rohuuvta mean volume (Bld) [Entitic vol]Platelet mean volume [Entitic volume] in Blood by Automated count6.6-10.1FMansfield HospitalPlatelets Auto (Bld) [#/Vol] Ordered By: Enrique Kibry on 30-07-5592Fgnredicz (Bld) [#/Vol]Platelets [#/volume] in Blood by Automated nielnTvv767-394AuckfbyorCorey HospitalPotassium [Moles/volume] in Serum or PlasmaOrdered By: Enrique Kirby on 46-45-9666Ktgrhxbsi [Moles/Vol]Potassium [Moles/volume] in Serum or Plasma 3.5-5.1FMansfield HospitalRBC Auto (Bld) [#/Vol]Ordered By: Enrique Kirby on 70-97-5580MLK (Bld) [#/Vol]Erythrocytes [#/volume] in Blood by Automated countLow3.90-5.60Mag[facility]uder Memorial Hospitalerum or plasma anion gap determinationOrdered By: Enrique Kirby on 82-09-6283Gsjgd gap [Moles/Vol]Serum or plasma anion gap determination6.0-15.0[facility]uder [facility] Hospitalodium [Moles/volume] in Serum or PlasmaOrdered By: Enrique Kirby on 04-56-5268Bdfwkw [Moles/Vol]Sodium [Moles/volume] in Serum or PlasmaLow 136-145Corey HospitalUrea nitrogen [Mass/volume] in Serum or PlasmaOrdered By: Enrique Kirby on 07-67-5457Djcd nitrogen [Mass/Vol]Urea nitrogen [Mass/volume] in Serum or PlasmaHigh7-25Corey HospitalWBC Auto (Bld) [#/Vol]Ordered By: Enrique Kirby on 06-14-8845JVW (Bld) [#/Vol]Leukocytes [#/volume] in Blood by Automated countLow4.1-10.5FMansfield Hospital36on 70-35-573403Mvjud with patient, he verbalized understanding and would like to proceed with the MURIEL.[facility]36----- Message from Sujatha Asencio MD sent at 09/16/2024 6:23 AM EST ----- His echo showed severe mitral regurgitation. He needs a MURIEL for better assessment. ----- Message ----- From: Interface, Radiology Results In Sent: 09/15/2024 4:42 PM EST To: Stephen Asencio MDNormalUKettering HealthAutomated epithelial cells count in urine sediment (number/area)Ordered By: Romain Roy on 56-90-6520Tazgjvxzhz cells Auto (Urine sed) [#/Area]Automated epithelial cells count in urine sediment (number/area)0-2FMansfield HospitalAutomated erythrocytes count in urine sediment (number/area) Ordered By: Romain Roy on 04-39-6592QZA Auto (Urine sed) [#/Area] Erythrocytes [#/area] in Urine sediment by Automated countHigh0-4FMansfield HospitalAutomated leukocytes count in urine sediment (number/area)Ordered By: Romain Roy on 49-88-9375KQO Auto (Urine sed) [#/Area]Leukocytes [#/area] in Urine sediment by Automated count0-4FMansfield HospitalBasic Metabolic Panelon 13-37-0285Jpjft gap [Moles/Vol] 15.0 mmol/LNormal6.0-15.0The [facility] Health Physician GroupComment on above:Performed By: #### CBC, BMP, MG ####[facility] [address] [place] [address] USACalcium [Mass/Vol]8.5 mg/dLLow8.6-10.3The [facility]cu Health Physician GroupComment on above:Performed By: #### CBC, BMP, MG ####[address] [place] [address] USAChloride [Moles/Vol] 97 mmol/JWpz70-428Vep [facility] Health Physician GroupComment on above:Performed By: #### CBC, BMP, MG ####[address] [place] [address] USACO2 [Moles/Vol]26.3 mmol/UMnqrer19.0-31.0The [facility] Health Physician GroupComment on above:Performed By: #### CBC, BMP, MG ####[address] [place] [address] USACreatinine [Mass/Vol]6.71 mg/dLHigh0.70-1.30The [facility] Health Physician GroupComment on above:Performed By: #### CBC, BMP, MG ####[place] [address] USACreatinine Clr Calc Qmcslmhr95.05NoSampson Regional [facility] Center Physician Group Comment on above:Performed By: #### CBC, BMP, MG ####[place] [address] USAEstimated GFR10.000 mL/MinNoSampson Regional Medical Center Physician [facility] River GulfportComment on above:Performed By: #### CBC, BMP, MG ####[place] [address] USAGlucose [Mass/Vol]109 mg/xBNcuo34-962Rvm [facility] Health Physician GroupComment on above: Result Comment: Random Glucose Reference Range is dependent on time and content of last meal. Glucose of more than 200 mg/dL in a nonstressed, ambulatory subject supports the diagnosis of Diabetes Mellitus. ADA recommended reference rangePerformed By: #### CBC, BMP, MG ####[place] [address] USAPotassium [Moles/Vol]5.3 mmol/LHigh3.5-5.1The [facility] Health Physician GroupComment on above:Performed By: #### CBC, BMP, MG ####[address] [place] [address] USASodium [Moles/Vol]133 mmol/QEfe745-956Egp [facility] Health Physician GroupComment on above: Performed By: #### CBC, BMP, MG ####[facility] [address] [place] [address] USAUrea nitrogen [Mass/Vol]52 mg/dLHigh7-25The [facility] Health Physician GroupComment on above:Performed By: #### CBC, BMP, MG ####[facility] [address] [place] [address] [facility] Basophils Auto (Bld) [#/Vol]Ordered By: Brigid Salvador on 58-20-1120Ltpjcjhrm (Bld) [#/Vol]Automated basophil count0.0-0.2FMansfield Hospital Basophils/100 WBC Auto (Bld)Ordered By: Brigid Salvador on 19-13-9159Zhwgxjyog/100 WBC (Bld)Automated basophil %.Corey HospitalBilirubin Test strip Ql (U)Ordered By: Romain Roy on 32-55-9862Pmsvyqrjc Ql (U) Bilirubin.total [Presence] in Urine by Test stripNegativeCorey HospitalCalcium [Mass/volume] in Serum or PlasmaOrdered By: Brigid Salvador on 11-45-9909Liykqkb [Mass/Vol]Calcium [Mass/volume] in Serum or PlasmaLow8.6-10.3 Corey HospitalCarbon dioxide, total [Moles/volume] in Serum or PlasmaOrdered By: Brigid Salvador on 64-13-5885IZ9 [Moles/Vol]Carbon dioxide, total [Moles/volume] in Serum or Mntuwh79.0-31.0Corey HospitalChloride [Moles/volume] in Serum or PlasmaOrdered By: Brigid Salvador on 05-93-5637Ollccoij [Moles/Vol]Chloride [Moles/volume] in Serum or PlasmaLow 98-107Corey HospitalColor Auto (U)Ordered By: Romain Roy on 03-46-7541Mrxza (U)Color of Urine by AutoYellowCorey HospitalComplete Blood Count Auto Diffon 60-10-1726Omhnviwrb (Bld) [#/Vol] 0.1 10*3/uLNormal0.0-0.2The [facility] Health Physician GroupComment on above:Result Comment: PERFORMED BY:[address]SOLOWINDS[address], [place] [phone] MEDICAL DIRECTORCRISTHIAN HUFF M.D. Performed By: #### CBC, BMP, MG ####[id number] USABasophils/100 WBC (Bld)2.3 %Normal.The [facility] Health Physician GroupComment on above:Performed By: #### CBC, BMP, MG ####[address] [address] USAEosinophils (Bld) [#/Vol]0.1 10*3/uLNormal0.0-0.45The [facility] Health Physician GroupComment on above: Performed By: #### CBC, BMP, MG ####[address] [address] USAEosinophils/100 WBC (Bld)2.2 %Normal.The [facility] Health Physician GroupComment on above:Performed By: #### CBC, BMP, MG ####[address] [address] USAErythrocyte distribution width (RBC) [Ratio]14.5 %Whhpkl09.0-14.8The [facility] Health Physician GroupComment on above:Performed By: #### CBC, BMP, MG ####[address] [address] USAHematocrit (Bld) [Volume fraction]25.8 %Low38.8-50.0The [facility] Health Physician GroupComment on above: Performed By: #### CBC, BMP, MG ####[address] USAHemoglobin (Bld) [Mass/Vol]8.7 g/dLLow13.0-17.0The [facility] Health Physician GroupComment on above:Performed By: #### CBC, BMP, MG ####[place] [address] [place] Lymphocytes (Bld) [#/Vol]0.5 10*3/uLLow1.00-4.8The [facility] Comment on above:Performed By: #### CBC, BMP, MG ####[place] [address] USALymphocytes/100 WBC (Bld)18.8 %Normal. The [facility] Health Physician GroupComment on above:Performed By: #### CBC, BMP, MG ####[address]H (RBC) [Entitic mass]29.1 xuMbmxqo53.5-35.2The [facility] Health Physician GroupComment on above:Performed By: #### CBC, BMP, MG ####[address]V (RBC) [Entitic vol]86.3 qZQzmkoq48.5-101 The [facility] Health Physician GroupComment on above:Performed By: #### CBC, BMP, MG ####[place] [address] USAMean Corpuscular HGB Conc33.7 g/hAGfhlai53.5-35.6The [facility] Health Physician GroupComment on above:Performed By: #### CBC, BMP, MG ####[place] [address] USAMonocytes (Bld) [#/Vol]0.4 10*3/uLNormal 0.0-0.8The [facility] Health Physician GroupComment on above:Performed By: #### CBC, BMP, MG ####[place] [address] USAMonocytes/100 WBC (Bld)20.52 %High0.00-20.00The [facility] Comment on above:Result Comment: For adults in ED, MDW > 20.0 may be associated with a higher risk of sepsis during the first 12 hrs of hospital admission Performed By: #### CBC, BMP, MG ####[place] [address] USAMonocytes/100 WBC (Bld)12.9 %Normal.The [facility] Health Physician GroupComment on above:Performed By: #### CBC, BMP, MG ####[place] [address] USANeutrophils (Bld) [#/Vol]1.8 10*3/uLNormal1.8-7.7The [facility] Health Physician GroupComment on above: Performed By: #### CBC, BMP, MG ####[place] [address] USANeutrophils/100 WBC (Bld)63.8 %Normal.The [facility] Health Physician GroupComment on above:Performed By: #### CBC, BMP, MG ####[place] [address] USANRBC%0.1 /100{WBC} Normal0-0.5The [facility] Health Physician GroupComment on above:Performed By: #### CBC, BMP, MG ####[place] [address] USAPlatelet mean volume (Bld) [Entitic vol]7.4 fLNormal6.6-10.1The [facility] Health Physician GroupComment on above:Performed By: #### CBC, BMP, MG ####[place] [address] USAPlatelets (Bld) [#/Vol]108 10*3/pAUyz717-789Vst [facility] Health Physician GroupComment on above: Performed By: #### CBC, BMP, MG ####[id number] USARBC (Bld) [#/Vol]2.99 10*6/uLLow3.90-5.60The [facility] Health Physician GroupComment on above:Performed By: #### CBC, BMP, MG ####[place] [address] USAWBC (Bld) [#/Vol]2.9 10*3/uLLow4.1-10.5The [facility] Health Physician GroupComment on above:Performed By: #### CBC, BMP, MG ####[address] [address] USACreatinine [Mass/volume] in Serum or Plasma Ordered By: Brigid Salvador on 94-91-8877Fvykhpyjly [Mass/Vol]Creatinine [Mass/volume] in Serum or PlasmaHigh0.70-1.30[facility] Dipstick and Microscopicon 80-38-2697Qmrhscnacw (U)CloudyCritically abnormal ClearThe Ecu Health Physician GroupComment on above:Order Comment: Name Collection Type:: Clean-Voided MidstreamPerformed By: #### ADDONUAPLUS ####[address] [address] [place] Bacteria,UrineNone SeenNormalNone SeenThe Ecu Health Physician GroupComment on above:Order Comment: Name Collection Type:: Clean-Voided MidstreamPerformed By: #### ADDONUAPLUS ####[address] [address] USABilirubin,UrineNegativeNormalNegativeThe [facility] Physician Group Comment on above:Order Comment: Name Collection Type:: Clean-Voided Midstream Performed By: #### ADDONUAPLUS ####[address] [address] USAColor (U)YellowNormalYellowThe Ecu Health Physician GroupComment on above:Order Comment: Name Collection Type:: Clean-Voided MidstreamPerformed By: #### ADDONUAPLUS ####[address] [address] USAGlucose Ql (U)250 mg/dLHighNormHCA Florida Suwannee Emergency Physician GroupComment on above:Order Comment: Name Collection Type:: Clean- Voided MidstreamPerformed By: #### ADDONUAPLUS ####[address] [address] USAHyaline Casts,Urine0 [LPF]Normal0-8The [facility] Health Physician GroupComment on above:Order Comment: Name Collection Type:: Clean-Voided MidstreamResult Comment: PERFORMED BY:[address] [place], [place] [phone] MEDICAL DIRECTORCRISTHIAN HUFF M.D.Performed By: #### ADDONUAPLUS ####[address] [address] USAKetones Ql (U) NegativeNormalNegativeThe [facility]cu Health Physician GroupComment on above:Order Comment: Name Collection Type:: Clean-Voided MidstreamPerformed By: #### ADDONUAPLUS ####[address] [address] USALeukocyte esterase Test strip Ql (U)NegativeNormalNegativeThe [facility] Health Physician GroupComment on above:Order Comment: Name Collection Type:: Clean- Voided MidstreamPerformed By: #### ADDONUAPLUS ####[address] [address] USANitrite,UrineNegativeNormalNegativeThe [facility]cu Health Physician GroupComment on above:Order Comment: Name Collection Type:: Clean-Voided MidstreamPerformed By: #### ADDONUAPLUS ####[address] [address] USAOccult Blood,Urine1+High NegativeThe Ecu Health Physician GroupComment on above:Order Comment: Name Collection Type:: Clean-Voided MidstreamResult Comment: PERFORMED BY:[address] HOFFEsaÓSCARMEM[place], [place] [phone] MEDICAL DIRECTORCRISTHIAN HUFF M.D.Performed By: #### ADDONUAPLUS ####[address] [address] [place] pH,Urine>=Normal5.0-9.0The [facility] Health Physician GroupComment on above:Order Comment: Name Collection Type:: Clean-Voided MidstreamPerformed By: #### ADDONUAPLUS ####[address] [address] USAProtein (U) [Mass/Vol]300 mg/dLHighNegativeThe [facility]cu Health Physician GroupComment on above:Order Comment: Name Collection Type:: Clean-Voided MidstreamPerformed By: #### ADDONUAPLUS ####[address] [address] USARBC,Urine10 [HPF]High0-4The [facility] Health Physician GroupComment on above:Order Comment: Name Collection Type:: Clean- Voided MidstreamPerformed By: #### ADDONUAPLUS ####[address] [address] USASpecificy [place],Urine1.012Normal 1.001-1.030The [facility] Health Physician GroupComment on above:Order Comment: Name Collection Type:: Clean-Voided MidstreamPerformed By: #### ADDONUAPLUS ####[address] [address] [place] Squamous Epithelial Cell,Urine1 [HPF]Normal0-2The [facility] Comment on above:Order Comment: Name Collection Type:: Clean-Voided Midstream Performed By: #### ADDONUAPLUS ####[address] [address] USAUrobilinogen,UrineNormalNormalNormalThe Ecu Health Physician GroupComment on above:Order Comment: Name Collection Type:: Clean- Voided MidstreamPerformed By: #### ADDONUAPLUS ####[address] [address] USAWBC,Urine1 [HPF]Normal0-4The [facility] Health Physician GroupComment on above:Order Comment: Name Collection Type:: Clean- Voided MidstreamPerformed By: #### ADDONUAPLUS ####[address] [address] USAEosinophils Auto (Bld) [#/Vol]Ordered By: Brigid Salvador on 32-63-2382Yniewfzhaxu (Bld) [#/Vol]Automated eosinophil count 0.0-0.45Corey HospitalEosinophils/100 WBC Auto (Bld)Ordered By: Brigid Salvador on 98-05-6190Acprdntfghl/100 WBC (Bld)Automated eosinophil %. [facility]y HospitalErythrocyte distribution width Auto (RBC) [Ratio]Ordered By: Brigid Salvador on 11-05-9771Kvaoqcfrugz distribution width (RBC) [Ratio]Erythrocyte distribution width [Ratio] by Automated count12.0-14.8 [facility]y HospitalGlucose Glucometer (BldC) [Mass/Vol]Ordered By: Enrique Kirby on 45-33-5696Tlndidk [Mass/Vol]Capillary blood glucose measurement by glucometer (mass/volume)Corey HospitalComment on above:Random Glucose Reference Range is dependent on time and content of last meal. Glucose of more than 200 mg/dL in a nonstressed, ambulatory subject supports the diagnosis of Diabetes Mellitus.Glucose Poct Glucometerson 15-36-4009Enddxiz9Gco6: Cleaned MeterNoSampson Regional Medical Center Physician GroupComment on above:Result Comment: PERFORMED BY:[address] [place]IM[place], [place] [phone] MEDICAL DIRECTORCRISTHIAN HUFF M.D.Performed By: #### GLULS ####Point of Care testing,Glucose [Mass/Vol]158 mg/dLMelbourne Regional Medical Center Physician GroupComment on above:Result Comment: Random Glucose Reference Range is dependent on time and content of last meal. Glucose of more than 200 mg/dL in a nonstressed, ambulatory subject supports the diagnosis of Diabetes Mellitus.Performed By: #### GLULS ####Point of Care testing,Glucose [Mass/Vol]151 mg/dLMelbourne Regional Medical Center Physician Comment on above:Result Comment: Random Glucose Reference Range is dependent on time and content of last meal. Glucose of more than 200 mg/dL in a nonstressed, ambulatory subject supports the diagnosis of Diabetes Mellitus.PERFORMED BY:[address] [place], [place] [phone] MEDICAL DIRECTORCRISTHIAN HUFF M.D. Performed By: #### GLULS ####Point of Care testing,Glucose [Mass/Vol]151 mg/dL NormalSt. Vincent'S Medical Center Southside Physician GroupComment on above:Result Comment: Random Glucose Reference Range is dependent on time and content of last meal. Glucose of more than 200 mg/dL in a nonstressed, ambulatory subject supports the diagnosis of Diabetes Mellitus.PERFORMED BY:[address], [place] [phone] MEDICAL DIRECTORCRISTHIAN HUFF M.D.Performed By: #### GLULS ####Point of Care testing,Glucose [Mass/Vol]134 mg/dLNoSampson Regional Medical Center Physician GroupComment on above:Result Comment: Random Glucose Reference Range is dependent on time and content of last meal. Glucose of more than 200 mg/dL in a nonstressed, ambulatory subject supports the diagnosis of Diabetes Mellitus.PERFORMED BY:[address] SAUNDERSTOAN[place], [place] [phone] MEDICAL DIRECTORCRISTHIAN HUFF M.D. Performed By: #### GLULS ####Point of Care testing,Glucose [Mass/Vol]361 mg/dL NormalThe [facility]cu Health Physician GroupComment on above:Result Comment: Random Glucose Reference Range is dependent on time and content of last meal. Glucose of more than 200 mg/dL in a nonstressed, ambulatory subject supports the diagnosis of Diabetes Mellitus.PERFORMED BY:[address] [place], [place] [phone] MEDICAL DIRECTORCRISTHIAN HUFF M.D.Performed By: #### GLULS ####Point of Care testing,Glucose [Mass/Vol]112 mg/dLMelbourne Regional Medical Center Physician GroupComment on above:Result Comment: Random Glucose Reference Range is dependent on time and content of last meal. Glucose of more than 200 mg/dL in a nonstressed, ambulatory subject supports the diagnosis of Diabetes Mellitus.PERFORMED BY:[address] [place], [place] [phone] MEDICAL DIRECTORCRISTHIAN HUFF M.D. Performed By: #### GLULS ####Point of Care testing,Tqumjvh7CmmctgPnk [facility]lands Physician GroupComment on above:Result Comment: Glu2: WILL NOTIFY DR/VANESSAerformed By: #### GLULS ####Point of Care testing,Ohgdjky4Ekezzkw MeterNoSampson Regional Medical Center Physician GroupComment on above:Result Comment: PERFORMED BY:[address] [place]sa[place], [place] [phone] MEDICAL DIRECTORCRISTHIAN HUFF M.D.Performed By: #### GLULS ####Point of Care testing,Glucose [Mass/Vol]104 mg/dLMelbourne Regional Medical Center Physician Group Comment on above:Result Comment: Random Glucose Reference Range is dependent on time and content of last meal. Glucose of more than 200 mg/dL in a nonstressed, ambulatory subject supports the diagnosis of Diabetes Mellitus.Performed By: #### GLULS ####Point of Care testing,Glucose [Mass/volume] in Serum or Plasma Ordered By: Brigid Salvador on 38-26-0851Hrvdeqy [Mass/Vol]Glucose [Mass/volume] in Serum or IiaezkZkhe53-985NrfhkombpCorey HospitalComment on above:ADA recommended reference rangeRandom Glucose Reference Range is dependent on time and content of last meal. Glucose of more than 200 mg/dL in a nonstressed, ambulatory subject supports the diagnosisof Diabetes Mellitus.Hematocrit Auto (Bld) [Volume fraction]Ordered By: Brigid Salvador on 93-66-1177Osarlwmcep (Bld) [Volume fraction]Hematocrit [Volume Fraction] of Blood by Automated countLow 38.8-50.0Corey HospitalHemoglobin [Mass/volume] in Blood Ordered By: Brigid Salvador on 51-90-3919Pcxffovbjy (Bld) [Mass/Vol]Hemoglobin [Mass/volume] in GuwboFoc87.0-17.0[facility] HospitalKetones Auto test strip (U) [Mass/Vol]Ordered By: Romain Roy on 53-31-9652Zmtkmkz (U) [Mass/Vol]Urine ketones measurement by automated test strip (mass/volume) NegativeCorey HospitalLaboratory - UrinalysisOrdered By: Romain Roy on 46-00-9907Bgkbhaj casts LM Ql (Urine sed)0-8 [LPF]0-8 [facility] HospitalLeukocytes [#/volume] corrected for nucleated erythrocytes in Blood by Automated counOrdered By: Brigid Salvador on 34-75-6995HGM corrected for nucl RBC Auto (Bld) [#/Vol]Leukocytes [#/volume] corrected for nucleated erythrocytes in Blood by Automated counLow4.1-10.5FMansfield HospitalLymphocytes Auto (Bld) [#/Vol]Ordered By: Brigid Salvador on 40-35-8498Ryyrbpmragj (Bld) [#/Vol]Lymphocytes [#/volume] in Blood by Automated countLow1.00-4.8Core[facility] HospitalLymphocytes/100 WBC Auto (Bld) Ordered By: Brigid Salvador on 76-45-1408Qwpzbncsyut/100 WBC (Bld)Lymphocytes/100 leukocytes in Blood by Automated count.[facility]y HospitalMCH Auto (RBC) [Entitic mass]Ordered By: Brigid Salvador on 72-41-2536OTW (RBC) [Entitic mass]MCH [Entitic mass] by Automated count27.5-35.2FMansfield HospitalMCHC Auto (RBC) [Mass/Vol]Ordered By: Brigid Salvador on 48-50-3904YXBB (RBC) [Mass/Vol]MCHC [Mass/volume] by Automated count32.5-35.6FMansfield HospitalMCV Auto (RBC) [Entitic vol]Ordered By: Brigid Salvador on 09-16-2024 MCV (RBC) [Entitic vol]MCV [Entitic volume] by Automated count83.5-101Corey HospitalMagnesiumon 68-44-9540Tmiycnxsp [Mass/Vol]2.2 mg/dLNormal 1.9-2.7The [facility] Health Physician GroupComment on above:Result Comment: PERFORMED BY:[facility]IM[place], [place] [phone] MEDICAL DIRECTORCRISTHIAN HUFF M.D.Performed By: #### CBC, BMP, MG ####[facility] [address] [place] [address] USAMagnesium [Mass/volume] in Serum or PlasmaOrdered By: Brigid Salavdor on 03-54-0096Pohssecbi [Mass/Vol]Magnesium [Mass/volume] in Serum or Plasma1.9-2.7 [facility] HospitalMonocyte distribution width [Entitic volume] in Blood by AutomatedOrdered By: Brigid Salvador on 37-52-6808Alyrbhmy distribution width Auto (Bld) [Entitic vol]Monocyte distribution width [Entitic volume] in Blood by AutomatedHigh0.00-20.00[facility] HospitalComment on above:For adults in ED, MDW > 20.0 may be associated with a higher risk of sepsis during the first 12 hrs of hospital admissionMonocytes Auto (Bld) [#/Vol] Ordered By: Brigid Salvador on 15-08-3702Jcwhaqwwz (Bld) [#/Vol]Automated blood monocyte count0.0-0.8Corey HospitalMonocytes/100 WBC Auto (Bld)Ordered By: Brigid Salvador on 48-44-2236Rnosjlhdy/100 WBC (Bld)Automated monocyte %.[facility]y HospitalNeutrophils Auto (Bld) [#/Vol] Ordered By: Brigid Salvador on 85-35-1984Hbgpbyktpvl (Bld) [#/Vol]Neutrophils [#/volume] in Blood by Automated count1.8-7.7FMansfield Hospital Neutrophils/100 WBC Auto (Bld)Ordered By: Brigid Salvador on 09-16-2024 Neutrophils/100 WBC (Bld)Automated neutrophil %.Corey HospitalNitrite Test strip Ql (U)Ordered By: Romain Roy on 55-68-1640Cflapvj Ql (U)Nitrite [Presence] in Urine by Test stripNegativeCorey HospitalNo Panel InformationOrdered By: Romain Roy on 42-43-83124-8 [LPF]0-8Corey HospitalNo Panel InformationOrdered By: Julio Allen on 43-69-0013Mrvfmkp Glucose #2 CommentCleaned meter Corey HospitalBedside Glucose CommentSee commentCorey HospitalComment on above:Glu2: WILL NOTIFY DR/Millie Panel InformationOrdered By: Brigid Salvador on 38-03-4947Dvmdmmdry GFR (CKD-EPI)10.000 mL/MinCorey HospitalPharmacy Creatinine Clearance (Chem15.05 [facility] HospitalNucleated erythrocytes [Presence] in Blood by Automated countOrdered By: Brigid Salvador on 09-52-1886Lpkytwzan RBC Auto Ql (Bld) Nucleated erythrocytes [Presence] in Blood by Automated count0-0.5FMansfield HospitalPlatelet mean volume Auto (Bld) [Entitic vol]Ordered By: Brigid Salvador on 30-72-5487Inwgoxfx mean volume (Bld) [Entitic vol]Platelet mean volume [Entitic volume] in Blood by Automated count6.6-10.1FMansfield HospitalPlatelets Auto (Bld) [#/Vol]Ordered By: Brigid Salvador on 09-16-2024 Platelets (Bld) [#/Vol]Platelets [#/volume] in Blood by Automated countLow 150-450Corey HospitalPotassium [Moles/volume] in Serum or PlasmaOrdered By: Brigid Salvador on 01-61-8481Ecrlawhvy [Moles/Vol]Potassium [Moles/volume] in Serum or PlasmaHigh3.5-5.1FMansfield Hospital Protein Auto test strip (U) [Mass/Vol]Ordered By: Romain Roy on 09-16-2024 Protein (U) [Mass/Vol]Urine protein measurement by automated test strip (mass/volume)HighNegativeCorey HospitalRBC Auto (Bld) [#/Vol] Ordered By: Brigid Salvador on 39-86-7051GTQ (Bld) [#/Vol]Erythrocytes [#/volume] in Blood by Automated countLow3.90-5.60Mag[facility]uder Memorial Hospitalerum or plasma anion gap determinationOrdered By: Brigid Salvador on 64-79-0442Svwfa gap [Moles/Vol]Serum or plasma anion gap determination6.0-15.0Mag[facility]uder Memorial Hospitalodium [Moles/volume] in Serum or PlasmaOrdered By: Brigid Salvador on 83-97-4686Cdsfkc [Moles/Vol]Sodium [Moles/volume] in Serum or ZytuclXyl412-099 [facility] Hospitalpecific gravity Auto test strip (U) [Rel density]Ordered By: Romain Roy on 31-97-1996Wsjefsxa gravity (U) [Rel density]Specific gravity of Urine by Automated test strip1.001-1.030Corey HospitalUrea nitrogen [Mass/volume] in Serum or PlasmaOrdered By: Brigid Salvador on 73-18-3986Fbba nitrogen [Mass/Vol]Urea nitrogen [Mass/volume] in Serum or PlasmaHigh7-25Corey HospitalUrine bacteria detection by automated methodOrdered By: Romain Roy on 80-96-1975Bpjpwblm Auto Ql (U)Bacteria [Presence] in Urine by AutomatedNone [facility] HospitalUrine clarity by refractometry automatedOrdered By: Romain Roy on 04-93-8449Rcmllnm Refractometry automated (U)Urine clarity by refractometry automatedAbCleveland Clinic FoundationUrine glucose measurement by automated test strip (mass/volume)Ordered By: Romain Roy on 66-11-3648Ivwpfzq Auto test strip (U) [Mass/Vol]Urine glucose measurement by automated test strip (mass/volume)[facility], Cancer CenterUrine hemoglobin detection by automated test stripOrdered By: Romain Roy on 43-93-3312Wrlxbbgbpj Auto test strip Ql (U)Urine hemoglobin detection by automated test stripSelect Medical [facility] [place] Urine leukocyte esterase detection by automated test stripOrdered By: Romain Roy on 41-52-8040Rfqyupczg esterase Auto test strip Ql (U)Urine leukocyte esterase detection by automated test stripNegFulton County Health CenterUrobilinogen Auto test strip (U) [Mass/Vol]Ordered By: Romain Roy on 77-29-8783Jlhrbogbuygn (U) [Mass/Vol]Urine urobilinogen measurement by automated test strip (mass/volume)Corey HospitalWBC Auto (Bld) [#/Vol]Ordered By: Brigid Salvador on 27-98-5257AHH (Bld) [#/Vol] Leukocytes [#/volume] in Blood by Automated countLow4.1-10.5FMansfield HospitalpH Auto test strip (U)Ordered By: Romain Roy on 54-99-0032iY (U)Urine pH measurement by automated test strip5.0-9.0Corey HospitalAlanine aminotransferase [Enzymatic activity/volume] in Serum or PlasmaOrdered By: Tenzin Ortiz on 17-00-0429NVV [Catalytic activity/Vol]Alanine aminotransferase [Enzymatic activity/volume] in Serum or Plasma7-52Corey HospitalAlbumin [Mass/volume] in Serum or Plasma by Bromocresol green (BCG) dye binding methoOrdered By: Tenzin Ortiz on 17-01-5803Lgzxcgj BCG dye [Mass/Vol]Albumin [Mass/volume] in Serum or Plasma by Bromocresol green (BCG) dye binding metho3.5-5.7FMansfield HospitalAlkaline phosphatase [Enzymatic activity/volume] in Serum or PlasmaOrdered By: Tenzin Ortiz on 03-29-9990PJN [Catalytic activity/Vol]Alkaline phosphatase [Enzymatic activity/volume] in Serum or Rseuir53-217NoxbvvcwjCorey Hospital Aspartate aminotransferase [Enzymatic activity/volume] in Serum or PlasmaOrdered By: Tenzin Ortiz on 25-48-1101PFS [Catalytic activity/Vol]Aspartate aminotransferase [Enzymatic activity/volume] in Serum or Sjkfol24-63IgrwaduziCorey HospitalBilirubin.total [Mass/volume] in Serum or PlasmaOrdered By: Tenzin Ortiz on 16-64-3710Wolbvbvpr [Mass/Vol]Bilirubin.total [Mass/volume] in Serum or Plasma0.3-1.0Corey HospitalBlood Cultureon 84-22-5955Phneyjiw identified Cx Nom (Bld)NO GROWTH 5 DAYS PERFORMED BY: [facility] [address] [place] [address] PATHOLOGIST MILK HAULER CRISTHIAN HUFF M.D.NormalThe Ecu Health Physician GroupComment on above: Performed By: #### CUBLD, LACTIC, CMP ####[facility] [address] [place] [address] USABacteria identified Cx Nom (Bld)NO GROWTH 5 DAYS PERFORMED BY: [facility] [address] [place] [address] PATHOLOGIST MILK HAULER CRISTHIAN HUFF M.D.NormalSt. Vincent'S Medical Center Southside Physician GroupComment on above: Performed By: #### CUBLD, LACTIC, CMP ####[id number] [place] [address] USACOVID CepheidOrdered By: Romain Roy on 56-74-0594TTVS-CoV-2 (COVID-19) Ab IA QlCOVID CepheidAbnormalUniversity Hospitals Health SystemComment on above:This is a duplicate Cepheid Xpert Xpress CoV-2/Flu/RSV Plus RNA by RT-PCR result to be used for statistical tracking purpose only.SARS-CoV-2 (COVID-19) RNA HAO+probe Ql (Unsp spec)COVID Cepheid AbnormalNegFulton County Health CenterCOVID-19 / Flu A/B / RSV PCRon 93-58-6378VBKF-CoV-2 (COVID-19) RNA HAO+probe Ql (Unsp spec)NormalSt. Vincent'S Medical Center Southside Physician GroupComment on above:Performed By: #### CEPHEID POS, COVID19 FLU RSV ####[address] [address] USACT abdomen pelvis w conon 68-82-7446DP abdomen pelvis w conNormalSt. Vincent'S Medical Center Southside Physician GroupCepheid COVID PCR Positiveon 61-63-8775JNXJ-CoV-2 (COVID-19) RNA HAO+probe Ql (Unsp spec)PositiveCritically abnormalNegativeSt. Vincent'S Medical Center Southside Physician GroupComment on above:Result Comment: This is a duplicate Cepheid Xpert Xpress CoV-2/Flu/RSV Plus RNA by RT-PCR result dimitri used for statistical tracking purpose only.PERFORMED BY:[address] [place], [place] [phone] MEDICAL DIRECTORCRISTHIAN EDDY M.D.Performed By: #### CEPHEID POS, COVID19 FLU RSV ####[address] [place] [address] USAComplete Blood Count Auto Diffon 47-49-1831Supeqbxov (Bld) [#/Vol]0.0 10*3/uLNormal0.0-0.2The [facility]cu Health Physician GroupComment on above:Result Comment: PERFORMED BY:[address] [place], [place] [phone] MEDICAL DIRECTORCRISTHIAN HUFF M.D.Performed By: #### CBC ####[id number] USABasophils/100 WBC (Bld)1.4 %Normal.The Ecu Health Physician GroupComment on above:Performed By: #### CBC ####[address] USAEosinophils (Bld) [#/Vol]0.1 10*3/uLNormal0.0-0.45The [facility]cu Health Physician GroupComment on above:Performed By: #### CBC ####[address] USAEosinophils/100 WBC (Bld)1.8 %Normal. The [facility]cu Health Physician GroupComment on above:Performed By: #### CBC ####[address] [place] Erythrocyte distribution width (RBC) [Ratio]14.0 %Zkfhvu51.0-14.8The Ecu Health Physician GroupComment on above:Performed By: #### CBC ####[address] USAHematocrit (Bld) [Volume fraction]28.2 %Low38.8-50.0The [facility]cu Health Physician GroupComment on above: Performed By: #### CBC ####[address] USAHemoglobin (Bld) [Mass/Vol]9.5 g/dLLow13.0-17.0The [facility]cu Health Physician GroupComment on above:Performed By: #### CBC ####[place] [address] USALymphocytes (Bld) [#/Vol]0.4 10*3/uLLow1.00-4.8The Ecu Health Physician GroupComment on above: Performed By: #### CBC ####[address] USALymphocytes/100 WBC (Bld)11.0 %Normal.The [facility] Health Physician GroupComment on above:Performed By: #### CBC ####[address] [facility] (RBC) [Entitic mass]29.0 quFyfzte68.5-35.2The [facility] Health Physician GroupComment on above:Performed By: #### CBC ####[id number] [facility] (RBC) [Entitic vol]86.1 pZYnfsib48.5-101The [facility] Group Comment on above:Performed By: #### CBC ####[place] [address] USAMean Corpuscular HGB Conc33.6 g/dLNormal 32.5-35.6The [facility] Health Physician GroupComment on above:Performed By: #### CBC ####[place] [address] [place] Monocytes (Bld) [#/Vol]0.4 10*3/uLNormal0.0-0.8The [facility] Comment on above:Performed By: #### CBC ####[place] [address] USAMonocytes/100 WBC (Bld)20.91 %High0.00-20.00 The Ecu Health Physician GroupComment on above:Result Comment: For adults in ED, MDW > 20.0 may be associated with a higher risk of sepsis during the first 12 hrs of hospital admissionPerformed By: #### CBC ####[place] [address] USAMonocytes/100 WBC (Bld)10.9 %Normal. The [facility] Health Physician GroupComment on above:Performed By: #### CBC ####[address] [address] [place] Neutrophils (Bld) [#/Vol]2.6 10*3/uLNormal1.8-7.7The [facility] Comment on above:Performed By: #### CBC ####[address] [address] USANeutrophils/100 WBC (Bld)74.9 %Normal.The [facility] Health Physician GroupComment on above:Performed By: #### CBC ####[address] [address] USANRBC%0.1 /100{WBC} Normal0-0.5The Ecu Health Physician GroupComment on above:Performed By: #### CBC ####[address] [address] [place] Platelet mean volume (Bld) [Entitic vol]7.5 fLNormal6.6-10.1The [facility] Health Physician GroupComment on above:Performed By: #### CBC ####[address] [address] USAPlatelets (Bld) [#/Vol]113 10*3/hMPbb136-130Jeo [facility] Health Physician GroupComment on above:Performed By: #### CBC ####[address] [address] USARBC (Bld) [#/Vol]3.28 10*6/uLLow3.90-5.60The [facility] Health Physician GroupComment on above:Performed By: #### CBC ####[address] [address] USAWBC (Bld) [#/Vol]3.5 10*3/uLLow4.1-10.5The [facility] Health Physician GroupComment on above:Performed By: #### CBC ####[address] [address] USAComprehensive Metabolic Panel on 26-04-9811Kelcviu [Mass/Vol]4.0 g/dLNormal3.5-5.7The [facility] Health Physician GroupComment on above:Performed By: #### MIRELLA PAULINO, CMP ####[address] [address] USAAlbumin/Globulin [Mass ratio]1.4 {ratio}NormalThe Ecu Health Physician GroupComment on above: Performed By: #### LORA LACTIC, CMP ####[address] [address] USAALP [Catalytic activity/Vol]55 U/SGhcbjz19-307 The [facility] Health Physician GroupComment on above:Performed By: #### MIRELLA PAULINO, CMP ####[id number] USAALT [Catalytic activity/Vol]19 U/LNormal7-52The [facility] Health Physician GroupComment on above:Performed By: #### MIRELLA PAULINO, CMP ####[address] [address] USAAnion gap [Moles/Vol]16.5 mmol/LHigh 6.0-15.0The [facility] Health Physician GroupComment on above:Performed By: #### MIRELLA PAULINO, CMP ####[id number] USAAST [Catalytic activity/Vol]26 U/UBijinp47-09Vdh [facility] Health Physician GroupComment on above:Performed By: #### MIRELLA PAULINO, CMP ####[address] [address] USABilirubin [Mass/Vol] 0.6 mg/dLNormal0.3-1.0The [facility] Health Physician GroupComment on above:Performed By: #### MIRELLA PAULINO, CMP ####[address] [address] USACalcium [Mass/Vol]9.0 mg/dLNormal8.6-10.3The [facility] Health Physician GroupComment on above:Performed By: #### LORA LACTIC, CMP ####[address] [address] [place] Chloride [Moles/Vol]96 mmol/NZnr66-997Nvm [facility] Physician [facility] River GulfportComment on above:Performed By: #### MIRELLA PAULINO, CMP ####[place] [address] USACO2 [Moles/Vol]25.2 mmol/LNormal 21.0-31.0The [facility] Physician [facility] [facility] GulfportComment on above:Performed By: #### LORA LACTIC, CMP ####[place] [address] USACreatinine [Mass/Vol]6.29 mg/dLHigh0.70-1.30The [facility] Physician [facility] River GulfportComment on above:Performed By: #### MIRELLA PAULINO, CMP ####[place] [address] USACreatinine Clr Calc Madsfmkq95.06NoSampson Regional Medical Center Physician [facility] River GulfportComment on above:Result Comment: PERFORMED BY:[address] [place], [place] [phone] MEDICAL DIRECTORCRISTHIAN HUFF M.D. Performed By: #### MIRELLA PAULINO, CMP ####[place] [address] USAEstimated GFR10.806 mL/MinNoPomerene HospitalComment on above:Performed By: #### MIRELLA PAULINO, CMP ####[place] [address] [place] Globulin (S) [Mass/Vol]2.9 g/dLMelbourne Regional Medical Center Physician [facility] [facility] GulfportComment on above:Performed By: #### LORA LACTIC, CMP ####[place] [address] USAGlucose [Mass/Vol]161 mg/yYTanc71-711 The [facility] Health Physician GroupComment on above:Result Comment: Random Glucose Reference Range is dependent on time and content of last meal. Glucose of more than 200 mg/dL in a nonstressed, ambulatory subject supports the diagnosis of Diabetes Mellitus. ADA recommended reference rangePerformed By: #### LORA LACTIC, CMP ####[facility] [place] [address] USAPotassium [Moles/Vol]5.7 mmol/LHigh3.5-5.1The [facility] Comment on above:Performed By: #### LORA LACTIC, CMP ####[facility] [place] [address] USAProtein [Mass/Vol]6.9 g/dL Normal6.4-8.9The [facility] Health Physician GroupComment on above:Performed By: #### LORA, LACTIC, CMP ####[address] [address] USASodium [Moles/Vol]132 mmol/UFgw926-756Yks [facility] Comment on above:Performed By: #### LORA LACTIC, CMP ####[address] [address] USAUrea nitrogen [Mass/Vol]49 mg/dLHigh7-25The [facility] Health Physician GroupComment on above:Performed By: #### LORA LACTIC, CMP ####[address] [address] USAECG 12 lead ECGon 54-66-9639LZJ 12 lead ECGNoSampson Regional Medical Center Physician GroupECG 12 lead ECGNoSampson Regional Medical Center Physician [place] GulfportGlobulin Calc (S) [Mass/Vol]Ordered By: Tenzin Ortiz on 82-90-1569Pveiykcq (S) [Mass/Vol] Serum globulin measurement by calculation (mass/volume)Corey HospitalGlucose Poct Glucometerson 01-51-8028Xvxjzel [Mass/Vol]158 mg/dL NormalThe Ecu Health Physician GroupComment on above:Result Comment: Random Glucose Reference Range is dependent on time and content of last meal. Glucose of more than 200 mg/dL in a nonstressed, ambulatory subject supports the diagnosis of Diabetes Mellitus.PERFORMED BY:[address] [place]rí[place], [place] [phone] MEDICAL DIRECTORCRISTHIAN HUFF M.D.Performed By: #### GLULS ####Point of Care testing,Fbkeonq4QmbnvpLuy [facility] Physician GroupComment on above:Result Comment: Glu2: WILL NOTIFY DR/VANESSAerformed By: #### GLULS ####Point of Care testing,Cuwvbyx3Qcuqiyy MeterNoSampson Regional Medical Center Physician GroupComment on above:Result Comment: PERFORMED BY:[address] [place], [place] [phone] MEDICAL DIRECTORCRISTHIAN EDDY M.D.Performed By: #### GLULS ####Point of Care testing,Glucose [Mass/Vol]130 mg/dLMelbourne Regional Medical Center Physician GroupComment on above:Result Comment: Random Glucose Reference Range is dependent on time and content of last meal. Glucose of more than 200 mg/dL in a nonstressed, ambulatory subject supports the diagnosis of Diabetes Mellitus.Performed By: #### GLULS ####Point of Care testing,Laboratory - Microbiology and Antimicrobial susceptibility Ordered By: Tenzin Ortiz on 60-97-0746Hjyehboh identified Cx Nom (Bld)NO GROWTH 5 DAYSCorey HospitalBacteria identified Cx Nom (Bld)NO GROWTH 5 DAYSCorey HospitalBacteria identified Cx Nom (Bld)NO GROWTH 5 DAYSCorey HospitalBacteria identified Cx Nom (Bld) NO GROWTH 5 DAYSCorey HospitalLactate [Moles/volume] in Serum or PlasmaOrdered By: Romain Roy on 37-18-9888Xvbkrca [Moles/Vol]Lactate [Moles/volume] in Serum or Plasma0.5-1.9Corey HospitalComment on above:Lactic Acid reference range has been updated to 0.5 1.9 mmol/L and the critical range of 2.0 or greater.Lactic Acidon 56-24-5220Ciegybo [Moles/Vol]0.6 mmol/LNormal0.5-1.9The [facility] Health Physician GroupComment on above:Result Comment: Lactic Acid reference range has been updated to 0.5 ? 1.9 mmol/L and the critical range of 2.0 or greater.PERFORMED BY:[address] [place]IMENEZMEM[place], [place] [phone] MEDICAL DIRECTORCRISTHIAN HUFF M.D.Performed By: #### LACTIC ####[address] [place] [address] USALactate [Moles/Vol] 0.6 mmol/LNormal0.5-1.9The [facility] Health Physician GroupComment on above:Result Comment: Lactic Acid reference range has been updated to 0.5 ? 1.9 mmol/L and the critical range of 2.0 or greater.PERFORMED BY:[address] [place], [place] [phone] MEDICAL DIRECTORCRISTHIAN HUFF M.D.Performed By: #### CUBLD, LACTIC, CMP ####[facility] [place] [address] USAProtein [Mass/volume] in Serum or PlasmaOrdered By: Tenzin Ortiz on 86-50-4701Bavfmlq [Mass/Vol]Protein [Mass/volume] in Serum or Plasma6.4-8.9Corey HospitalRespiratory specimen influenza A virus, influenza B virus, respiratory syncytical virOrdered By: Romain Roy on 19-52-9630UKAB-CoV-2 (COVID-19) RNA HAO+probe Ql (Unsp spec)Respiratory specimen influenza A virus, influenza B virus, respiratory syncytical [facility] SARS-CoV-2 (COVID-19) RNA HAO+probe Ql (Unsp spec)Respiratory specimen influenza A virus, influenza B virus, respiratory syncytical [facility] Hospitalerum or plasma albumin/globulin mass ratioOrdered By: Tenzin Ortiz on 01-24-3052Nudshkr/Globulin [Mass ratio]Serum or plasma albumin/globulin mass ratioCorey HospitalX-ray reportOrdered By: Alec Flynn on 87-09-1066Nppqa reportPARKWOOD HOSPITAL [address] [place] [address] XRay Report Signed Patient: Yoel Tamayo MR#: [id number] : 1985 Acct:[id number] Age/Sex: 39 / M ADM Date: 5 [...] Alec Flynn M.D.09/15/2024 10:19 PM Dictation Location: [facility]20 Transcribed By: [facility] 09/15/242218 Dictated By: Alec Flynn DO 09/15/242215 Signed By: 09/15/242218 [facility] Hospitaltudy reportCorey HospitalXR chest 2V*on 83-95-2421NA chest 2V*NormalThe [facility]cu Health Physician GroupABO/RHon 11-30-5148BYJ group Nom (Bld)ANormalUniversCleveland Clinic Medina HospitalComment on above:Performed By: #### [id number] #### [facility] TISSUE TYPING (HISTOTRAC) [address] [place] [address] USARH TYPE IN BLOODPositiveNormalUniversCleveland Clinic Medina HospitalComment on above:Performed By: #### [id number] #### [facility] TISSUE TYPING (HISTOTRAC) [address] [place] [address] USALabon [id number] Yoel Tamayo 1985 M Date Provider Department Center 09/08/20242244-[facility] OPD LAB RESOURCE [facility] OPD SD Medical C Family History Problem Relation Age of Onset Pancreatic cancer Mother Diabetes Mother Liver disease Mother Hypertension Father Irritable bowel syndrome Father Stroke Father Coronary artery disease Brother 55 Lung cancer Paternal Grandmother Coronary artery disease Paternal Grandfather Family Status - Relation Status Age at Mother Father Alive Brother Paternal Grandmother Paternal GrandfatherNChildren's Hospital for RehabilitationPANEL REACTIVE ANTIBODYon 81-20-7548SLHW SPECIMENHold for add-ons.The Metro[facility] SystemComment on above:Result Comment: Auto resulted.Performed By: #### [id number] #### [facility] [address] [place], [place] [address]FGOLAQ ANTIGEN CLASS Ion [id number] SCREEN COMMENTSPotential specificites added to the watch list.[facility] Comment on above:Performed By: #### [id number] #### [facility] TISSUE TYPING (HISTOTRAC) [address] [place] [address] USACLASS I LOW RISK GRAYSON:24NormalUniCleveland Clinic Euclid HospitalComment on above:Performed By: #### [id number] #### [facility] TISSUE TYPING (HISTOTRAC) [address] [place] [address] USACLASS I TESTED [id number] of [facility]edo Medical CenterComment on above:Performed By: #### [id number] #### [facility] TISSUE TYPING (HISTOTRAC) [address] [place] [address] USASINGLE ANTIGEN CLASS 1 TEST METHODClass I Single Antigen The MetroHealth SystemComment on above:Performed By: #### [id number] #### [facility] TISSUE TYPING (HISTOTRAC) [address] [place] [address] USASINGLE ANTIGEN CLASS IIon [id number] SCREEN COMMENTSNo Specificites FoundNoAultman HospitalComment on above: Performed By: #### [id number] #### [facility] TISSUE TYPING (HISTOTRAC) [address] [place] [address] USACLASS II TESTED [id number] of [facility]edo Medical CenterComment on above:Performed By: #### [id number] #### [facility] TISSUE TYPING (HISTOTRAC) [address] [place] [address] UKGGVBL5XuyrhxBkxmrqdvzrCleveland Clinic Euclid HospitalComment on above:Performed By: #### [id number] #### [facility] TISSUE TYPING (HISTOTRAC) [address] [place] [address] USAPerformed By: #### [id number] #### [facility] TISSUE TYPING (HISTOTRAC) [address] [place] [address] USASIGNED BYSigned by Govind Robison CHT([facility]) MT(ASCP), [employer] Transplant ImmunologyNormalUniCleveland Clinic Euclid HospitalComment on above:Performed By: #### [id number] #### [facility] TISSUE TYPING (HISTOTRAC) [address] [place] [address] USAResult Comment: Class I Antigen MicrobeadsPerformed By: #### [id number] #### [facility] TISSUE TYPING (HISTOTRAC) [address] [place] [address] USASINGLE ANTIGEN CLASS 2 TEST METHODClass II Single Antigen NormalACMC Healthcare System GlenbeighComment on above:Result Comment: Class II Antigen MicrobeadsPerformed By: #### [id number] #### [facility] TISSUE TYPING (HISTOTRAC) [address] [place] [address] USATelemedicineon [id number] Yoel Tamayo 1985 M Date Provider Department [place] 09/01/2024 [facility] Family History Problem Relation Age of Onset Pancreatic cancer Mother Diabetes Mother Liver disease Mother Hypertension Father Irritable bowel syndrome Father Stroke Father Coronary artery disease Brother 55 Lung cancer Paternal Grandmother Coronary artery disease Paternal Grandfather Family Status - Relation Status Age at Mother Father Brother Paternal Grandmother Paternal Grandfather Level of Service:15411 MS OFFICE/OUTPATIENT NEW SF MDM 15 MINUTES (95)Normal ACMC Healthcare System GlenbeighGlucose Glucometer (BldC) [Mass/Vol]Ordered By: Law Cano on 70-61-2457Ceuceet [Mass/Vol]Capillary blood glucose measurement by glucometer (mass/volume)Corey HospitalComment on above:Random Glucose Reference Range is dependent on time and content of last meal. Glucose of more than 200 mg/dL in a nonstressed, ambulatory subject supports the diagnosis of Diabetes Mellitus.Glucose Poct Glucometerson 65-32-9703Nnguqir [Mass/Vol]240 mg/dLNoSampson Regional Medical Center Physician GroupComment on above:Result Comment: Random Glucose Reference Range is dependent on time and content of last meal. Glucose of more than 200 mg/dL in a nonstressed, ambulatory subject supports the diagnosis of Diabetes Mellitus.PERFORMED BY:[address] SAUNDERSUSKWINDSOR, [place] [phone] MEDICAL DIRECTORCRISTHIAN HUFF M.D. Performed By: #### GLULS ####Point of Care testing,Glucose [Mass/Vol]142 mg/dL NormalThe Ecu Health Physician GroupComment on above:Result Comment: Random Glucose Reference Range is dependent on time and content of last meal. Glucose of more than 200 mg/dL in a nonstressed, ambulatory subject supports the diagnosis of Diabetes Mellitus.PERFORMED BY:[address] [place], [place] [phone] MEDICAL DIRECTORCRISTHIAN HUFF M.D.Performed By: #### GLULS ####Point of Care testing,Glucose [Mass/Vol]137 mg/dLMelbourne Regional Medical Center Physician GroupComment on above:Result Comment: Random Glucose Reference Range is dependent on time and content of last meal. Glucose of more than 200 mg/dL in a nonstressed, ambulatory subject supports the diagnosis of Diabetes Mellitus.PERFORMED BY:[address] [place], [place] [phone] MEDICAL DIRECTORCRISTHIAN HUFF M.D. Performed By: #### GLULS ####Point of Care testing,Glucose [Mass/Vol]118 mg/dL NormalSt. Vincent'S Medical Center Southside Physician GroupComment on above:Result Comment: Random Glucose Reference Range is dependent on time and content of last meal. Glucose of more than 200 mg/dL in a nonstressed, ambulatory subject supports the diagnosis of Diabetes Mellitus.PERFORMED BY:[address]OOKLYNRodríguezEsa[place], [place] [phone] MEDICAL DIRECTORCRISTHIAN HUFF M.D.Performed By: #### GLULS ####Point of Care testing,Glucose [Mass/Vol]55 mg/dLOff scale [facility] Physician Group Comment on above:Result Comment: Random Glucose Reference Range is dependent on time and content of last meal. Glucose of more than 200 mg/dL in a nonstressed, ambulatory subject supports the diagnosis of Diabetes Mellitus.PERFORMED BY:[address] BROOKLYNRodríguezFREDÓSCAR, [place] [phone] MEDICAL DIRECTORCRISTHIAN HUFF M.D. Performed By: #### GLULS ####Point of Care testing,Glucose [Mass/Vol]139 mg/dL [facility] Physician GroupComment on above:Result Comment: Random Glucose Reference Range is dependent on time and content of last meal. Glucose of more than 200 mg/dL in a nonstressed, ambulatory subject supports the diagnosis of Diabetes Mellitus.PERFORMED BY:[address] BROOKLYNRodríguezFREDÓSCAR, [place] [phone] MEDICAL DIRECTORCRISTHIAN HUFF M.D.Performed By: #### GLULS ####Point of Care testing,Glucose [Mass/Vol]64 mg/dLMelbourne Regional Medical Center Physician [facility] River GulfportComment on above:Result Comment: Random Glucose Reference Range is dependent on time and content of last meal. Glucose of more than 200 mg/dL in a nonstressed, ambulatory subject supports the diagnosis of Diabetes Mellitus.PERFORMED BY:[place] [address] [address] BROOKLYNRodríguezFREDÓSCAR, [place] [phone] MEDICAL BONITA HUFF M.D. Performed By: #### GLULS ####Point of Care testing,Glucose [Mass/Vol]92 mg/dL [facility] Physician GroupComment on above:Result Comment: Random Glucose Reference Range is dependent on time and content of last meal. Glucose of more than 200 mg/dL in a nonstressed, ambulatory subject supports the diagnosis of Diabetes Mellitus.PERFORMED BY:[place] [address] HOFFEsaÓSCARMEMPH[place], [place] [phone] MEDICAL DIRECTORCRISTHIAN HUFF M.D.Performed By: #### GLULS ####Point of Care testing,Brtmzvq9RkqidwLmiMelbourne Regional Medical Center Physician GroupComment on above:Result Comment: Glu2: WILL NOTIFY DR/RNPERFORMED BY:[place] [address] JORGE HOFFEsaÓSCARMEMPHIS, [place] [phone] MEDICAL DIRECTORCRISTHIAN HUFF M.D.Performed By: #### GLULS ####Point of Care testing,Glucose [Mass/Vol]47 mg/dLOff scale lowSt. [facility] Comment on above:Result Comment: Random Glucose Reference Range is dependent on time and content of last meal. Glucose of more than 200 mg/dL in a nonstressed, ambulatory subject supports the diagnosis of Diabetes Mellitus.Performed By: #### GLULS ####Point of Care testing,Glucose [Mass/Vol]382 mg/dLMelbourne Regional Medical Center Physician GroupComment on above:Result Comment: Random Glucose Reference Range is dependent on time and content of last meal. Glucose of more than 200 mg/dL in a nonstressed, ambulatory subject supports the diagnosis of Diabetes Mellitus.PERFORMED BY:[place] [address] [address] [place], [place] [phone] MEDICAL DIRECTORCRISTHIAN EDDY M.D.Performed By: #### GLULS ####Point of Care testing,Jougjga3Vda7: Cleaned [facility] Physician GroupComment on above:Result Comment: PERFORMED BY:[place] [address] [address] [place], [place] [phone] MEDICAL DIRECTORCRISTHIAN HUFF M.D. Performed By: #### GLULS ####Point of Care testing,Glucose [Mass/Vol]103 mg/dL [facility] Physician GroupComment on above:Result Comment: Random Glucose Reference Range is dependent on time and content of last meal. Glucose of more than 200 mg/dL in a nonstressed, ambulatory subject supports the diagnosis of Diabetes Mellitus.Performed By: #### GLULS ####Point of Care testing,Zwudazb8Sck3: Cleaned MeterNoSampson Regional Medical Center Physician GroupComment on above:Result Comment: PERFORMED BY:[facility] HOFFEsaÓ[place], [place] [phone] MEDICAL DIRECTORCRISTHIAN EDDY M.D.Performed By: #### GLULS ####Point of Care testing,Glucose [Mass/Vol]110 mg/dLMelbourne Regional Medical Center Physician GroupComment on above:Result Comment: Random Glucose Reference Range is dependent on time and content of last meal. Glucose of more than 200 mg/dL in a nonstressed, ambulatory subject supports the diagnosis of Diabetes Mellitus.Performed By: #### GLULS ####Point of Care testing,No Panel InformationOrdered By: Law Cano on 08-29-2024 Bedside Glucose CommentSee [facility] Hospital for RehabilitationComment on above:Glu2: WILL NOTIFY DR/RNSee [facility] for RehabilitationBlood Cultureon 57-75-0668Mmrvebpw identified Cx Nom (Bld)NO GROWTH 5 DAYS PERFORMED BY: [facility] [address] [address] PATHOLOGIST MILK HAULER CRISTHIAN HUFF M.D.NormalThe [facility] Physician GroupComment on above: Performed By: #### LACTIC, CUBLD ####[facility] [place] [address] USACOVID Cepheid NegativeOrdered By: Romain Roy on 81-43-3626ALXX-CoV-2 (COVID-19) Ab IA QlCOVID CepheidNegativeCorey HospitalComment on above:This is a duplicate Cepheid Xpert Xpress CoV-2/Flu/RSV Plus RNA by RT-PCR result to be used for statistical tracking purpose only.SARS-CoV-2 (COVID-19) RNA HAO+probe Ql (Unsp spec)COVID Cepheid NegativeCorey HospitalCOVID-19 / Flu A/B / RSV PCRon 39-83-7193POTO-CoV-2 (COVID-19) RNA HAO+probe Ql (Unsp spec)NormalThe [facility] Health Physician GroupComment on above:Performed By: #### CEPHEID NEG, COVID19 FLU RSV ####[place] [address] [place] [address] USACepheid COVID PCR Negativeon 18-43-6736LGEH-CoV-2 (COVID-19) RNA HAO+probe Ql (Unsp spec)NegativeNormalNegativeThe [facility] Health Physician GroupComment on above:Result Comment: This is a duplicate Cepheid Xpert Xpress CoV-2/Flu/RSV Plus RNA by RT- PCR result dimitri used for statistical tracking purpose only.PERFORMED BY:[address] [place], [place] [phone] MEDICAL DIRECTORCRISTHIAN HUFF M.D. Performed By: #### CEPHEID NEG, COVID19 FLU RSV ####[address] [address] USAGlucose Poct Glucometerson 08-28-2024 Glucose [Mass/Vol]309 mg/dLNoSampson Regional Medical Center Physician GroupComment on above: Result Comment: Random Glucose Reference Range is dependent on time and content of last meal. Glucose of more than 200 mg/dL in a nonstressed, ambulatory subject supports the diagnosis of Diabetes Mellitus.PERFORMED BY:[place] [address] CURRYSTEPHENVIL[place], [place] [phone] MEDICAL DIRECTORCRISTHIAN HUFF M.D.Performed By: #### GLULS ####Point of Care testing,Glucose [Mass/Vol]375 mg/dLNoSampson Regional Medical Center Physician Group Comment on above:Result Comment: Random Glucose Reference Range is dependent on time and content of last meal. Glucose of more than 200 mg/dL in a nonstressed, ambulatory subject supports the diagnosis of Diabetes Mellitus.PERFORMED BY:[address], [place] [phone] MEDICAL DIRECTORCRISTHIAN HUFF M.D. Performed By: #### GLULS ####Point of Care testing,Laboratory - Microbiology and Antimicrobial susceptibilityOrdered By: Romain Roy on 80-46-9603Bpqgzqjy identified Cx Nom (Bld)NO GROWTH 5 DAYSCorey HospitalLactate [Moles/volume] in Serum or PlasmaOrdered By: Romain Roy on 08-28-2024 Lactate [Moles/Vol]Lactate [Moles/volume] in Serum or Plasma0.5-2.2FMansfield HospitalLactic Acidon 66-94-9519Dfyeobk [Moles/Vol]0.6 mmol/L Normal0.5-2.2The [facility] Physician GroupComment on above:Result Comment: PERFORMED BY:[facility] [place], [place] [phone] MEDICAL DIRECTORCRISTHIAN HUFF M.D. Performed By: #### LACTIC, CUBLD ####[place] [address] [place] [address] USANo Panel InformationOrdered By: Romain Roy on 45-72-3320PH GROWTH 5 DAYSCorey HospitalRespiratory specimen influenza A virus, influenza B virus, respiratory syncytical virOrdered By: Romain Roy on 61-37-1202KAJC-CoV-2 (COVID-19) RNA HAO+probe Ql (Unsp spec) Respiratory specimen influenza A virus, influenza B virus, respiratory syncytical virCorey HospitalAlanine aminotransferase [Enzymatic activity/volume] in Serum or PlasmaOrdered By: Romain Roy on 23-96-8580CKU [Catalytic activity/Vol]Alanine aminotransferase [Enzymatic activity/volume] in Serum or Plasma7-Corey HospitalAlbumin [Mass/volume] in Serum or Plasma by Bromocresol green (BCG) dye binding metho Ordered By: Romain Roy on 47-19-8992Gsudjzh BCG dye [Mass/Vol]Albumin [Mass/volume] in Serum or Plasma by Bromocresol green (BCG) dye binding metho 3.5-5.7FMansfield HospitalAlkaline phosphatase [Enzymatic activity/volume] in Serum or PlasmaOrdered By: Romain Roy on 00-86-6656UEN [Catalytic activity/Vol]Alkaline phosphatase [Enzymatic activity/volume] in Serum or Jqtmhg66-020NzajmbjxhCorey HospitalAspartate aminotransferase [Enzymatic activity/volume] in Serum or PlasmaOrdered By: Romain Roy on 56-68-6461DXL [Catalytic activity/Vol]Aspartate aminotransferase [Enzymatic activity/volume] in Serum or Ncbzac09-92UvmsryponCorey HospitalB-Type Natriuretic Peptideon 44-95-6524Qpkwrcjhhdb peptide B (Bld) [Mass/Vol]4066.0 pg/mLHigh5-100The [facility] Physician GroupComment on above:Result Comment: PERFORMED BY:[facility] JIMENEZMEMPHIS, [place] [phone] MEDICAL DIRECTORCRISTHIAN HUFF M.D. Performed By: #### HS TROP, BNP, CMP, CBC ####[facility] [place] [address] USABasophils Auto (Bld) [#/Vol]Ordered By: Romain Roy on 30-67-9331Spwhrmxiy (Bld) [#/Vol]Automated basophil count 0.0-0.2FMansfield HospitalBasophils/100 WBC Auto (Bld)Ordered By: Romain Roy on 99-31-8311Cvpmzylwe/100 WBC (Bld)Automated basophil %. Corey HospitalBilirubin.total [Mass/volume] in Serum or PlasmaOrdered By: Romain Roy on 88-72-0747Psundghxn [Mass/Vol] Bilirubin.total [Mass/volume] in Serum or Plasma0.3-1.0Corey HospitalBlood Cultureon 41-29-4799Utjgznbf identified Cx Nom (Bld)L FA NO GROWTH 5 DAYS PERFORMED BY: [facility] [address] [place] [address] PATHOLOGIST MILK HAULER CRISTHIAN HUFF M.D.NormalThe [facility] Health Physician GroupComment on above: Performed By: #### LACTIC, CUBLD ####[address] [address] [place] [address] USACalcium [Mass/volume] in Serum or PlasmaOrdered By: Romain Roy on 30-38-5841Xewojms [Mass/Vol]Calcium [Mass/volume] in Serum or Plasma8.6-10.3FMansfield HospitalCarbon dioxide, total [Moles/volume] in Serum or PlasmaOrdered By: Romain Roy on 98-24-1872OA5 [Moles/Vol]Carbon dioxide, total [Moles/volume] in Serum or Vhahjk91.0-31.0 Corey HospitalChloride [Moles/volume] in Serum or Plasma Ordered By: Romain Roy on 13-92-5184Vekubvof [Moles/Vol]Chloride [Moles/volume] in Serum or WiwszgCbs22-212CbtprwbvtCorey Hospital Complete Blood Count Auto Diffon 69-81-9977Svqqheqrg (Bld) [#/Vol]0.1 10*3/uL Normal0.0-0.2The [facility] Physician GroupComment on above:Result Comment: PERFORMED BY:[address] [place], [place] [phone] MEDICAL DIRECTORCRISTHIAN HUFF M.D. Performed By: #### HS TROP, BNP, CMP, CBC ####[address] [place] [address] USABasophils/100 WBC (Bld)1.2 %Normal.The [facility] Physician GroupComment on above:Performed By: #### HS TROP, BNP, CMP, CBC ####[address] [address] [place] Eosinophils (Bld) [#/Vol]0.2 10*3/uLNormal0.0-0.45The [facility] Comment on above:Performed By: #### HS TROP, BNP, CMP, CBC ####[address] [address] USAEosinophils/100 WBC (Bld)3.1 %Normal.The [facility] Physician GroupComment on above:Performed By: #### HS TROP, BNP, CMP, CBC ####[place] [id number] USAErythrocyte distribution width (RBC) [Ratio]14.0 % Htvhal59.0-14.8The [facility] Physician GroupComment on above:Performed By: #### HS TROP, BNP, CMP, CBC ####[place] [address] USAHematocrit (Bld) [Volume fraction]31.8 %Low38.8-50.0 The [facility] Health Physician GroupComment on above:Performed By: #### HS TROP, BNP, CMP, CBC ####[place] [address] USAHemoglobin (Bld) [Mass/Vol]10.9 g/dLLow13.0-17.0The [facility] Comment on above:Performed By: #### HS TROP, BNP, CMP, CBC ####[place] [phone] USALymphocytes (Bld) [#/Vol]1.2 10*3/uLNormal1.00-4.8The [facility] Physician GroupComment on above: Performed By: #### HS TROP, BNP, CMP, CBC ####[place] [phone] USALymphocytes/100 WBC (Bld)18.3 %Normal.The [facility] Physician GroupComment on above:Performed By: #### HS TROP, BNP, CMP, CBC ####[place] [address] USAMCH (RBC) [Entitic mass]29.1 vkZmfzeg95.5-35.2The [facility] Physician GroupComment on above:Performed By: #### HS TROP, BNP, CMP, CBC ####[place] [address] USAMCV (RBC) [Entitic vol]84.9 fL Kpmeix56.5-101The [facility] Physician GroupComment on above:Performed By: #### HS TROP, BNP, CMP, CBC ####[place] [address] USAMean Corpuscular HGB Conc34.2 g/mVLztgqv78.5-35.6The [facility] Physician GroupComment on above:Performed By: #### HS TROP, BNP, CMP, CBC ####[place] [address] [place] Monocytes (Bld) [#/Vol]0.5 10*3/uLNormal0.0-0.8The [facility] Physician [facility] Comment on above:Performed By: #### HS TROP, BNP, CMP, CBC ####[place] [address] USAMonocytes/100 WBC (Bld)18.41 %Normal0.00-20.00The [facility] Physician GroupComment on above: Performed By: #### HS TROP, BNP, CMP, CBC ####[place] [address] USAMonocytes/100 WBC (Bld)7.4 %Normal.The [facility] Physician GroupComment on above:Performed By: #### HS TROP, BNP, CMP, CBC ####[place] [address] [place] Neutrophils (Bld) [#/Vol]4.5 10*3/uLNormal1.8-7.7The [facility] Physician [facility] Comment on above:Performed By: #### HS TROP, BNP, CMP, CBC ####[place] [address] USANeutrophils/100 WBC (Bld)70.0 %Normal.The [facility] Physician GroupComment on above:Performed By: #### HS TROP, BNP, CMP, CBC ####[place] [address] USANRBC%0.0 /100{WBC}Normal0-0.5The [facility] Physician GroupComment on above:Performed By: #### HS TROP, BNP, CMP, CBC ####[address] [address] USAPlatelet mean volume (Bld) [Entitic vol]7.9 fLNormal6.6-10.1The [facility] Physician GroupComment on above:Performed By: #### HS TROP, BNP, CMP, CBC ####[address] [address] USAPlatelets (Bld) [#/Vol]151 10*3/uL Ztirfs380-373Umq [facility] Physician GroupComment on above:Performed By: #### HS TROP, BNP, CMP, CBC ####[address] [address] USARBC (Bld) [#/Vol]3.74 10*6/uLLow3.90-5.60The [facility] Physician GroupComment on above:Performed By: #### HS TROP, BNP, CMP, CBC ####[address] [address] USAWBC (Bld) [#/Vol]6.4 10*3/uLNormal4.1-10.5The [facility] Physician GroupComment on above:Performed By: #### HS TROP, BNP, CMP, CBC ####[place] [id number] USAComprehensive Metabolic Panelon 23-48-6306Zqhnudo [Mass/Vol]3.7 g/dLNormal3.5-5.7The [facility] Physician GroupComment on above: Performed By: #### HS TROP, BNP, CMP, CBC ####[place] [address] USAAlbumin/Globulin [Mass ratio]1.3 {ratio} NormalThe [facility] Health Physician GroupComment on above:Performed By: #### HS TROP, BNP, CMP, CBC ####[place] [address] USAALP [Catalytic activity/Vol]60 U/BUrcglb62-157Wzq [facility] Physician GroupComment on above:Performed By: #### HS TROP, BNP, CMP, CBC ####[address] [place] [address] USAALT [Catalytic activity/Vol]12 U/LNormal7-52The [facility] Physician GroupComment on above: Performed By: #### HS TROP, BNP, CMP, CBC ####[address] [address] USAAnion gap [Moles/Vol]16.1 mmol/LHigh6.0-15.0 The [facility] Physician GroupComment on above:Performed By: #### HS TROP, BNP, CMP, CBC ####[place] [address] USAAST [Catalytic activity/Vol]14 U/TNrdemk98-52Omo [facility] Comment on above:Performed By: #### HS TROP, BNP, CMP, CBC ####[place] [address] USABilirubin [Mass/Vol] 0.7 mg/dLNormal0.3-1.0The [facility] Physician GroupComment on above:Performed By: #### HS TROP, BNP, CMP, CBC ####[address] [address] USACalcium [Mass/Vol]8.9 mg/dLNormal8.6-10.3The [facility] Physician GroupComment on above:Performed By: #### HS TROP, BNP, CMP, CBC ####[address] [address] [place] Chloride [Moles/Vol]93 mmol/PMdo01-939Vlg [facility] Physician GroupComment on above:Performed By: #### HS TROP, BNP, CMP, CBC ####[address] [address] USACO2 [Moles/Vol]26.3 mmol/LNormal 21.0-31.0The [facility] Physician GroupComment on above:Performed By: #### HS TROP, BNP, CMP, CBC ####[place] [address] USACreatinine [Mass/Vol]5.91 mg/dLHigh0.70-1.30The [facility] Physician GroupComment on above:Performed By: #### HS TROP, BNP, CMP, CBC ####[address] [place] [address] USACreatinine Clr Calc Iotqfqqu75.30NoSampson Regional Medical Center Physician GroupComment on above:Result Comment: PERFORMED BY:[address] [place], [place] [phone] MEDICAL DIRECTORCRISTHIAN HUFF M.D. Performed By: #### HS TROP, BNP, CMP, CBC ####[place] [address] [place] [id number] USAEstimated GFR11.645 mL/MinNoSampson Regional Medical Center Physician GroupComment on above:Performed By: #### HS TROP, BNP, CMP, CBC ####[place] [address] [place] Globulin (S) [Mass/Vol]2.9 g/dLMelbourne Regional Medical Center Physician GroupComment on above:Performed By: #### HS TROP, BNP, CMP, CBC ####[place] [address] USAGlucose [Mass/Vol]379 mg/rCNwnp17-590 The [facility] Physician GroupComment on above:Result Comment: Random Glucose Reference Range is dependent on time and content of last meal. Glucose of more than 200 mg/dL in a nonstressed, ambulatory subject supports the diagnosis of Diabetes Mellitus. ADA recommended reference rangePerformed By: #### HS TROP, BNP, CMP, CBC ####[place] [address] USAPotassium [Moles/Vol]4.4 mmol/LNormal3.5-5.1The [facility] Physician GroupComment on above:Performed By: #### HS TROP, BNP, CMP, CBC ####[place] [address] USAProtein [Mass/Vol]6.6 g/dLNormal6.4-8.9The [facility] Physician GroupComment on above:Performed By: #### HS TROP, BNP, CMP, CBC ####[facility] [address] [place] [address] USASodium [Moles/Vol]131 mmol/EXkx826-861Hvh [facility] Physician GroupComment on above:Performed By: #### HS TROP, BNP, CMP, CBC ####[facility] [address] [place] [address] USAUrea nitrogen [Mass/Vol]48 mg/dLHigh7-25The [facility] Physician GroupComment on above:Performed By: #### HS TROP, BNP, CMP, CBC ####[facility] [address] [place] [address] USACreatinine [Mass/volume] in Serum or PlasmaOrdered By: Romain Roy on 51-61-6160Ynzeyyewhw [Mass/Vol]Creatinine [Mass/volume] in Serum or PlasmaHigh0.70-1.30[facility] ECG 12 lead ECGon 80-44-7392UUG 12 lead ECGNormalThe [facility] Physician Group Eosinophils Auto (Bld) [#/Vol]Ordered By: Romain Roy on 08-27-2024 Eosinophils (Bld) [#/Vol]Automated eosinophil count0.0-0.45Corey HospitalEosinophils/100 WBC Auto (Bld)Ordered By: Romain Roy on 65-08-7703Ypsanslnmsr/100 WBC (Bld)Automated eosinophil %.[facility]y HospitalErythrocyte distribution width Auto (RBC) [Ratio]Ordered By: Romain Roy on 02-96-5694Dpopxekhqwn distribution width (RBC) [Ratio] Erythrocyte distribution width [Ratio] by Automated count12.0-14.8Corey HospitalGlobulin Calc (S) [Mass/Vol]Ordered By: Romain Roy on 31-99-4237Szlwsfua (S) [Mass/Vol]Serum globulin measurement by calculation (mass/volume)Corey HospitalGlucose [Mass/volume] in Serum or PlasmaOrdered By: Romain Roy on 65-85-0874Ncapcma [Mass/Vol]Glucose [Mass/volume] in Serum or EetoemAkdt09-584NlrxsenjcCorey Hospital Comment on above:ADA recommended reference rangeRandom Glucose Reference Range is dependent on time and content of last meal. Glucose of more than 200 mg/dL in a nonstressed, ambulatory subject supports the diagnosisof Diabetes Mellitus. Hematocrit Auto (Bld) [Volume fraction]Ordered By: Romain Roy on 86-48-7715Njdacwjkry (Bld) [Volume fraction]Hematocrit [Volume Fraction] of Blood by Automated cccmcMkh11.8-50.0Corey HospitalHemoglobin [Mass/volume] in BloodOrdered By: Romain Roy on 48-27-3050Wcbqjlsvtk (Bld) [Mass/Vol]Hemoglobin [Mass/volume] in YqmzxNvs66.0-17.0[facility] HospitalLaboratory - Microbiology and Antimicrobial susceptibilityOrdered By: Romain Roy on 17-94-7813Bvkzockx identified Cx Nom (Bld)NO GROWTH 5 DAYSCorey HospitalBacteria identified Cx Nom (Bld)NO GROWTH 5 DAYSCorey HospitalBacteria identified Cx Nom (Bld)NO GROWTH 5 DAYSCorey HospitalLeukocytes [#/volume] corrected for nucleated erythrocytes in Blood by Automated counOrdered By: Romain Roy on 09-68-0190XTK corrected for nucl RBC Auto (Bld) [#/Vol]Leukocytes [#/volume] corrected for nucleated erythrocytes in Blood by Automated coun4.1-10.5FMansfield HospitalLymphocytes Auto (Bld) [#/Vol]Ordered By: Romain Roy on 15-66-0934Dxlywjccguf (Bld) [#/Vol]Lymphocytes [#/volume] in Blood by Automated count1.00-4.8Corey HospitalLymphocytes/100 WBC Auto (Bld)Ordered By: Romain Roy on 29-38-5847Fjbsdcjyhoe/100 WBC (Bld) Lymphocytes/100 leukocytes in Blood by Automated count.Corey HospitalMCH Auto (RBC) [Entitic mass]Ordered By: Romain Roy on 82-19-0933FDJ (RBC) [Entitic mass]MCH [Entitic mass] by Automated count27.5-35.2 [facility] HospitalMCHC Auto (RBC) [Mass/Vol]Ordered By: Romain Roy on 36-87-9721ARDI (RBC) [Mass/Vol]MCHC [Mass/volume] by Automated count 32.5-35.6FMansfield HospitalMCV Auto (RBC) [Entitic vol]Ordered By: Romain Roy on 07-87-6885RFP (RBC) [Entitic vol]MCV [Entitic volume] by Automated count83.5-101Corey HospitalMonocyte distribution width [Entitic volume] in Blood by AutomatedOrdered By: Romain Roy on 21-86-4628Ckdflkxz distribution width Auto (Bld) [Entitic vol]Monocyte distribution width [Entitic volume] in Blood by Automated0.00-20.00Corey HospitalMonocytes Auto (Bld) [#/Vol]Ordered By: Romain Roy on 57-99-3421Agzlpfgjk (Bld) [#/Vol]Automated blood monocyte count0.0-0.8 [facility] HospitalMonocytes/100 WBC Auto (Bld)Ordered By: Romain Roy on 51-93-0510Ejkftnqxj/100 WBC (Bld)Automated monocyte %.[facility]y HospitalNatriuretic peptide B [Mass/Vol]Ordered By: Romain Roy on 57-85-7168Vurrabhlpbu peptide B (Bld) [Mass/Vol]BNP ser/plasHigh 5-100Corey HospitalNeutrophils Auto (Bld) [#/Vol]Ordered By: Romain Roy on 10-66-4143Edxyvvrqbxo (Bld) [#/Vol]Neutrophils [#/volume] in Blood by Automated count1.8-7.7FMansfield HospitalNeutrophils/100 WBC Auto (Bld)Ordered By: Romain Roy on 55-59-0322Uvatiyofqxy/100 WBC (Bld)Automated neutrophil %.[facility]y HospitalNo Panel InformationOrdered By: Romain Roy on 93-54-8314Gytdsofny GFR (CKD-EPI) 11.645 mL/MinFirelands Regional Medical CenterPharmacy Creatinine Clearance (Chem18.30[facility]11.645 mL/MinCorey Hospital18.30Corey HospitalNO GROWTH 5 DAYSCorey HospitalNucleated erythrocytes [Presence] in Blood by Automated countOrdered By: Romain Roy on 06-19-3805Bjuvuzdrv RBC Auto Ql (Bld) Nucleated erythrocytes [Presence] in Blood by Automated count0-0.5FMansfield HospitalPlatelet mean volume Auto (Bld) [Entitic vol]Ordered By: Romain Roy on 29-56-3805Veqckzvj mean volume (Bld) [Entitic vol]Platelet mean volume [Entitic volume] in Blood by Automated count6.6-10.1FMansfield HospitalPlatelets Auto (Bld) [#/Vol]Ordered By: Romain Roy on 49-14-5467Oekkaoxpl (Bld) [#/Vol]Platelets [#/volume] in Blood by Automated -911MoahswimkCorey HospitalPotassium [Moles/volume] in Serum or PlasmaOrdered By: Romain Roy on 39-92-5761Cmkpqaldf [Moles/Vol] Potassium [Moles/volume] in Serum or Plasma3.5-5.1FMansfield HospitalProtein [Mass/volume] in Serum or PlasmaOrdered By: Romain Roy on 54-05-6597Hemsiyv [Mass/Vol]Protein [Mass/volume] in Serum or Plasma6.4-8.9 [facility] HospitalRBC Auto (Bld) [#/Vol]Ordered By: Romain Roy on 67-26-9994CLG (Bld) [#/Vol]Erythrocytes [#/volume] in Blood by Automated countLow3.90-5.60[facility] HospitalRespiratory specimen influenza A virus, influenza B virus, respiratory syncytical virOrdered By: Romain Roy on 06-97-4516ZACO-CoV-2 (COVID-19) RNA HAO+probe Ql (Unsp spec) Respiratory specimen influenza A virus, influenza B virus, respiratory syncytical virMagruder Memorial Hospitalerum or plasma albumin/globulin mass ratioOrdered By: Romain Roy on 58-97-4628Utzkofm/Globulin [Mass ratio]Serum or plasma albumin/globulin mass ratioMagruder Memorial Hospitalerum or plasma anion gap determinationOrdered By: Romain Roy on 36-02-4264Rmedg gap [Moles/Vol]Serum or plasma anion gap determinationHigh 6.0-15.0Magruder Memorial Hospitalodium [Moles/volume] in Serum or PlasmaOrdered By: Romain Roy on 84-88-2072Jgsjfj [Moles/Vol]Sodium [Moles/volume] in Serum or MumimmFnu092-859YikoxsequCorey Hospital Troponin I High Sensitivityon 43-13-3802Eapzjsot I High Ecpxljvrskp324.0 pg/mL Off scale high0.0-20.0The [facility] Health Physician GroupComment on above:Result Comment: Critical Result : Called to and read back by: PETAR GOFF at: 08/28/2024 00:49:23by:[id number] BY:[facility] [place], [place] [phone] MEDICAL DIRECTORCRSITHIAN HUFF M.D.Performed By: #### HS TROP, BNP, CMP, CBC ####[facility] [place] [address] USATroponin I.cardiac [Mass/volume] in Serum or Plasma by Detection limit <= 0.01 ng/Ordered By: Romain Roy on 52-33-7772Rrxxwqbd I.cardiac DL <= 0.01 ng/mL [Mass/Vol] Troponin I.cardiac [Mass/volume] in Serum or Plasma by Detection limit <= 0.01 ng/Critically high0.0-20.0Corey HospitalComment on above: Critical Result : Called to and read back by: PETAR GOFF at: 08/28/2024 00:49:23 by:[id number] nitrogen [Mass/volume] in Serum or PlasmaOrdered By: Romain Roy on 49-90-9987Uqng nitrogen [Mass/Vol]Urea nitrogen [Mass/volume] in Serum or PlasmaHigh7-25Corey HospitalWBC Auto (Bld) [#/Vol]Ordered By: Romain Roy on 50-99-8045MDM (Bld) [#/Vol] Leukocytes [#/volume] in Blood by Automated count4.1-10.5FMansfield HospitalX-ray reportOrdered By: Trenton Salinas on 94-30-2219Youxz report [facility] [address] [place] [address] XRay Report Signed Patient: Yoel Tamaoy MR#: [id number] : 1985 Acct:[id number] Age/Sex: 39 / M ADM Date: 5 Loc: ER Room: Type: [facility] ER Attending Dr: Copies to: Romain Roy [...] Trenton Salinas M.D.08/27/2024 11:57 PM Dictation Location: [place] [address] Transcribed By: BRENNAN 08/27/242356 Dictated By: Trenton Salinas II, MD 08/27/242352 Signed By: 08/27/242356 [facility] Work Phone: XR chest 1V portableon 36-07-1369DZ chest 1V portable NormalThe Ecu Health Physician GroupCOVID Cepheid NegativeOrdered By: Donna Shaw on 85-86-0922URVY-CoV-2 (COVID-19) Ab IA QlCOVID CepheidNegative Corey HospitalComment on above:This is a duplicate Cepheid Xpert Xpress CoV-2/Flu/RSV Plus RNA by RT-PCR result to be used for statistical tracking purpose only.SARS-CoV-2 (COVID-19) RNA HAO+probe Ql (Unsp spec)COVID CepheidNegativeCorey HospitalCOVID-19 / FLU A/B / RSV PCR ([facility]on 87-61-0912HBBZ-CoV-2 (COVID-19) RNA HAO+probe Ql (Unsp spec)Negative NegativeNOMS HealthcareComment on above:This is a duplicate Cepheid Xpert Xpress CoV-2/Flu/RSV Plus RNA by RT-PCR result to be used for statistical tracking purpose only. [facility] HealthcareCEPHEID DISCLAIMERThe Cepheid Xpert Xpress CoV-2/Flu/RSV Plus has [facility] HealthcareCEPHEID DISCLAIMERnot been FDA cleared or approved; this test has [facility] HealthcareCEPHEID DISCLAIMERbeen authorized by FDA under an EUA for use by [facility] HealthcareCEPHEID DISCLAIMERauthorized laboratories; this test has beenNOTN HealthcareCEPHEID DISCLAIMERauthorized only for the simultaneous qualitative [facility] HealthcareCEPHEID DISCLAIMERdetection and differentiation of nucleic acids fromNOTN HealthcareCEPHEID DISCLAIMERrespiratory syncytial virus (RSV), and not for anyNOTN HealthcareCEPHEID DISCLAIMERother viruses or pathogens; and this test is onlyNOTN HealthcareCEPHEID DISCLAIMERauthorized for the duration of the declaration that[facility] HealthcareCEPHEID DISCLAIMERcircumstances exist justifying the authorization ofNOTN HealthcareCEPHEID DISCLAIMERemergency use of in vitro diagnostic tests forNOTN HealthcareCEPHEID DISCLAIMERSection 564(b)(1) of the Act, 21 U.S.C. 360bbb-[facility] HealthcareCEPHEID DISCLAIMER3(b)(1), unless the authorization is terminated orNA[facility] HealthcareCEPHEID DISCLAIMERrevoked sooner. [facility]OM[facility] HealthcareFLU A CEPHEID RESULTNegativeNOMS HealthcareFLU B CEPHEID RESULT NegativeNOMS HealthcareInterpretation and review of laboratory resultsAbnormal NOMS HealthcareREFERENCE:NegativeNOMS HealthcareRSV CEPHEID RESULTPositive AbnormalNOMS YfvyaebjrcWDRU-RqK-6 (COVID-19) Ab IA IjOTZE-MnY-1, influenza A, influenza B, andNOTN JocfunoipfVFGO-RnG-3 (COVID-19) RNA HAO+probe Ql (Unsp spec)NegativeNOTN NnbndlxrxbLVWS-MjM-4 (COVID-19) RNA HAO+probe Ql (Unsp spec) detection and/or diagnosis of COVID-19 underOz[facility] Hospital HealthcareCOVID- 19 / Flu A/B / RSV PCRon 48-17-9478FFGR-CoV-2 (COVID-19) RNA HAO+probe Ql (Unsp spec)NormalThe Ecu Health Physician GroupComment on above:Performed By: #### COVID19 FLU RSV, CEPHEID NEG ####[place] [address] [place] [address] USACepheid COVID PCR Negativeon 41-91-7955RYCG-CoV-2 (COVID-19) RNA HAO+probe Ql (Unsp spec)NegativeNormalNegativeThe Ecu Health Physician GroupComment on above:Result Comment: This is a duplicate Cepheid Xpert Xpress CoV-2/Flu/RSV Plus RNA by RT-PCR result dimitri used for statistical tracking purpose only.PERFORMED BY:[place] [address] [address] [place], [place] [phone] MEDICAL BONITA EDDY M.D.Performed By: #### COVID19 FLU RSV, CEPHEID NEG ####[address] [address] USALaboratory - Microbiology and Antimicrobial susceptibilityon 26-64-1408VVOG-CoV-2 (COVID-19) RNA HAO+probe Ql (Unsp spec) NOMS HealthcareRespiratory specimen influenza A virus, influenza B virus, respiratory syncytical vir Ordered By: Donna Shaw on 32-92-9881FPDH-CoV-2 (COVID-19) RNA HAO+probe Ql (Unsp spec)Respiratory specimen influenza A virus, influenza B virus, respiratory syncytical [facility] HospitalARS-CoV-2 (COVID-19) RNA HAO+probe Ql (Unsp spec)Respiratory specimen influenza A virus, influenza B virus, respiratory syncytical [facility] HospitalXR chest 2V* on 03-47-2990PR chest 2V*NormalSt. Vincent'S [facility] Center Southside Physician GroupConsulton 08-13-2024 [id number] Yoel Tamayo 1985 M Date Provider Department Center 08/13/2024 [facility] CARD [facility] HeartVAS Family History Problem Relation Age of Onset Pancreatic cancer Mother Hypertension Father Coronary artery disease Brother 55 Lung cancer Paternal Grandmother Coronary artery disease Paternal Grandfather Family Status - Relation Status Age at Mother Father Brother Paternal Grandmother Paternal Grandfather Level of Service:98047 MS OFFICE/OP CONSLTJ NEW/EST PT MOD MDM 40 MINUTES Reason for Visit and Comments: Cardiac evaluation for renal transplant [Other] - SLOT AMBASSADOR evaluation w/ no testingNormalUniversity of Wadley Regional Medical CenterAlanine aminotransferase [Enzymatic activity/volume] in Serum or PlasmaOrdered By: Tenzin Ortiz on 49-23-8058XMY [Catalytic activity/Vol]Alanine aminotransferase [Enzymatic activity/volume] in Serum or Plasma7-Corey HospitalAlbumin [Mass/volume] in Serum or Plasma by Bromocresol green (BCG) dye binding metho Ordered By: Tenzin Ortiz on 54-13-5329Rjiyfsh BCG dye [Mass/Vol]Albumin [Mass/volume] in Serum or Plasma by Bromocresol green (BCG) dye binding metho 3.5-5.7FMansfield HospitalAlkaline phosphatase [Enzymatic activity/volume] in Serum or PlasmaOrdered By: Tenzin Ortiz on 48-41-9655HFQ [Catalytic activity/Vol]Alkaline phosphatase [Enzymatic activity/volume] in Serum or Fezeoi94-780QgevgeyysCorey HospitalAppearance of UrineOrdered By: Tenzin Ortiz on 69-34-5508Lvgfbmvmzn (U)Urine appearanceCleAdena Pike Medical CenterAspartate aminotransferase [Enzymatic activity/volume] in Serum or PlasmaOrdered By: Tenzin Ortiz on 67-76-7432CAG [Catalytic activity/Vol]Aspartate aminotransferase [Enzymatic activity/volume] in Serum or UnaamjDcr85-36VofkfkdnaCorey HospitalB-Type Natriuretic Peptideon 43-83-7892Pmhvjbpotif peptide B (Bld) [Mass/Vol]2909.0 pg/mLHigh5-100The Ecu Health Physician GroupComment on above:Result Comment: PERFORMED BY:[facility] [place], [place] [phone] MEDICAL DIRECTORCRISTHIAN HUFF M.D.Performed By: #### CK, HS TROP, CMP, BNP, CBC ####[facility] [place] [address] USABacteria [Presence] in Urine by AutomatedOrdered By: Tenzin Ortiz on 50-17-4242Rpdmjwba Auto Ql (U)Bacteria [Presence] in Urine by AutomatedNone Seen Corey HospitalBasophils Auto (Bld) [#/Vol]Ordered By: Tenzin Ortiz on 43-69-0699Mnrbeiovo (Bld) [#/Vol]Automated basophil count0.0-0.2 Corey HospitalBasophils/100 WBC Auto (Bld)Ordered By: Tenzin Ortiz on 66-68-8317Jusylmnyp/100 WBC (Bld)Automated basophil %.Corey HospitalBilirubin Test strip Ql (U)Ordered By: Tenzin Ortiz on 54-81-8214Stozjjfgc Ql (U)Bilirubin.total [Presence] in Urine by Test strip NegativeCorey HospitalBilirubin.total [Mass/volume] in Serum or PlasmaOrdered By: Tenzin Ortiz on 75-28-0416Mwpbapquh [Mass/Vol] Bilirubin.total [Mass/volume] in Serum or Plasma0.3-1.0Corey HospitalCalcium [Mass/volume] in Serum or PlasmaOrdered By: Tenzin Ortiz on 78-18-1431Kluqjxl [Mass/Vol]Calcium [Mass/volume] in Serum or Plasma8.6-10.3 [facility] HospitalCarbon dioxide, total [Moles/volume] in Serum or PlasmaOrdered By: Tenzin Ortiz on 25-98-3576PX0 [Moles/Vol]Carbon dioxide, total [Moles/volume] in Serum or Vstgft23.0-31.0Corey HospitalChloride [Moles/volume] in Serum or PlasmaOrdered By: Tenzin Ortiz on 14-72-7230Bllzqkyz [Moles/Vol]Chloride [Moles/volume] in Serum or PlasmaLow 98-107Corey HospitalColor Auto (U)Ordered By: Tenzin Ortiz on 27-39-0921Tdpnm (U)Color of Urine by AutoYellowCorey HospitalComplete Blood Count Auto Diffon 54-36-1954Rmvtauecp (Bld) [#/Vol]0.1 10*3/uLNormal0.0-0.2The Ecu Health Physician GroupComment on above:Result Comment: PERFORMED BY:[address]ETAngiSTEPHENVILLE, [place] [phone] MEDICAL DIRECTORCRISTHIAN HUFF M.D. Performed By: #### CK, HS TROP, CMP, BNP, CBC ####[place] [id number] USABasophils/100 WBC (Bld)1.4 %Normal.The Ecu Health Physician GroupComment on above:Performed By: #### CK, HS TROP, CMP, BNP, CBC ####[place] [id number] USAEosinophils (Bld) [#/Vol]0.2 10*3/uLNormal0.0-0.45The Ecu Health Physician GroupComment on above:Performed By: #### CK, HS TROP, CMP, BNP, CBC ####[place] [id number] [place] Eosinophils/100 WBC (Bld)3.7 %Normal.The Ecu Health Physician GroupComment on above:Performed By: #### CK, HS TROP, CMP, BNP, CBC ####[place] [id number] USAErythrocyte distribution width (RBC) [Ratio]15.1 %High12.0-14.8The Ecu Health Physician GroupComment on above: Performed By: #### CK, HS TROP, CMP, BNP, CBC ####[place] [address] USAHematocrit (Bld) [Volume fraction]31.9 %Low38.8-50.0The Ecu Health Physician GroupComment on above:Performed By: #### CK, HS TROP, CMP, BNP, CBC ####[place] [address] USAHemoglobin (Bld) [Mass/Vol]10.8 g/dLLow13.0-17.0The Ecu Health Physician GroupComment on above:Performed By: #### CK, HS TROP, CMP, BNP, CBC ####[place] [address] USALymphocytes (Bld) [#/Vol]0.7 10*3/uLLow1.00-4.8The [facility] Comment on above:Performed By: #### CK, HS TROP, CMP, BNP, CBC ####[place] [address] USALymphocytes/100 WBC (Bld)16.0 %Normal.The Ecu Health Physician GroupComment on above:Performed By: #### CK, HS TROP, CMP, BNP, CBC ####[address]H (RBC) [Entitic mass]29.9 lrRozwgq68.5-35.2The Ecu Health Physician GroupComment on above:Performed By: #### CK, HS TROP, CMP, BNP, CBC ####[place] [id number] [facility] (RBC) [Entitic vol]88.0 gZTwofvv71.5-101The [facility] Physician [facility] Comment on above:Performed By: #### CK, HS TROP, CMP, BNP, CBC ####[place] [address] USAMean Corpuscular HGB Conc34.0 g/rIIqqbcc66.5-35.6The Ecu Health Physician GroupComment on above: Performed By: #### CK, HS TROP, CMP, BNP, CBC ####[place] [address] USAMonocytes (Bld) [#/Vol]0.2 10*3/uL Normal0.0-0.8The Ecu Health Physician GroupComment on above:Performed By: #### CK, HS TROP, CMP, BNP, CBC ####[place] [address] USAMonocytes/100 WBC (Bld)16.65 %Normal0.00-20.00The Ecu Health Physician GroupComment on above:Performed By: #### CK, HS TROP, CMP, BNP, CBC ####[place] [address] USAMonocytes/100 WBC (Bld)5.0 %Normal.The Ecu Health Physician GroupComment on above:Performed By: #### CK, HS TROP, CMP, BNP, CBC ####[place] [address] USANeutrophils (Bld) [#/Vol]3.3 10*3/uLNormal1.8-7.7The Ecu Health Physician GroupComment on above:Performed By: #### CK, HS TROP, CMP, BNP, CBC ####[place] [address] USANeutrophils/100 WBC (Bld)73.9 %Normal.The Ecu Health Physician GroupComment on above:Performed By: #### CK, HS TROP, CMP, BNP, CBC ####[place] [address] USANRBC% 0.2 /100{WBC}Normal0-0.5The Ecu Health Physician GroupComment on above:Performed By: #### CK, HS TROP, CMP, BNP, CBC ####[place] [address] USAPlatelet mean volume (Bld) [Entitic vol]8.7 fL Normal6.6-10.1The Ecu Health Physician GroupComment on above:Performed By: #### CK, HS TROP, CMP, BNP, CBC ####[place] [id number] USAPlatelets (Bld) [#/Vol]130 10*3/gKYyb436-859Bhy Ecu Health Physician GroupComment on above:Performed By: #### CK, HS TROP, CMP, BNP, CBC ####[place] [id number] USARBC (Bld) [#/Vol]3.62 10*6/uLLow3.90-5.60The [facility] Health Physician GroupComment on above:Performed By: #### CK, HS TROP, CMP, BNP, CBC ####[place] [address] USAWBC (Bld) [#/Vol]4.5 10*3/uL Normal4.1-10.5The Ecu Health Physician GroupComment on above:Performed By: #### CK, HS TROP, CMP, BNP, CBC ####[place] [address] USAComprehensive Metabolic Panelon 73-69-5231Cwebkut [Mass/Vol]3.9 g/dLNormal3.5-5.7The [facility] Health Physician GroupComment on above: Performed By: #### CK, HS TROP, CMP, BNP, CBC ####[place] [address] USAAlbumin/Globulin [Mass ratio]1.4 {ratio}NormalThe Ecu Health Physician GroupComment on above:Performed By: #### CK, HS TROP, CMP, BNP, CBC ####[place] [address] USAALP [Catalytic activity/Vol]59 U/KMbybdj94-601Qvf [facility] Health Physician GroupComment on above:Performed By: #### CK, HS TROP, CMP, BNP, CBC ####[place] [address] USAALT [Catalytic activity/Vol]9 U/LNormal7-52The [facility] Comment on above:Performed By: #### CK, HS TROP, CMP, BNP, CBC ####[place] [address] USAAnion gap [Moles/Vol] 12.9 mmol/LNormal6.0-15.0The Ecu Health Physician GroupComment on above:Performed By: #### CK, HS TROP, CMP, BNP, CBC ####[place] [address] USAAST [Catalytic activity/Vol]11 U/JBnl02-25Gkb [facility] Health Physician GroupComment on above:Performed By: #### CK, HS TROP, CMP, BNP, CBC ####[place] [address] USABilirubin [Mass/Vol]0.6 mg/dLNormal0.3-1.0The [facility] Comment on above:Performed By: #### CK, HS TROP, CMP, BNP, CBC ####[place] [address] USACalcium [Mass/Vol]8.9 mg/dLNormal8.6-10.3The [facility] Health Physician GroupComment on above:Performed By: #### CK, HS TROP, CMP, BNP, CBC ####[place] [address] USAChloride [Moles/Vol]95 mmol/UUje17-687Vqh [facility] Physician GroupComment on above:Performed By: #### CK, HS TROP, CMP, BNP, CBC ####[place] [address] USACO2 [Moles/Vol]28.5 mmol/LBzzblk80.0-31.0The [facility] Health Physician GroupComment on above:Performed By: #### CK, HS TROP, CMP, BNP, CBC ####[place] [address] USACreatinine [Mass/Vol]4.40 mg/dLHigh0.70-1.30The [facility] Health Physician GroupComment on above:Performed By: #### CK, HS TROP, CMP, BNP, CBC ####[place] [id number] USACreatinine Clr Calc Vezhtspp41.50NoSampson Regional Medical Center Physician [facility] GulfportComment on above:Result Comment: PERFORMED BY:[address] [place], [place] [phone] MEDICAL DIRECTORCRISTHIAN HUFF M.D.Performed By: #### CK, HS TROP, CMP, BNP, CBC ####[address] Estimated GFR16.592 mL/MinNoSampson Regional Medical Center Physician [facility] GulfportComment on above: Performed By: #### CK, HS TROP, CMP, BNP, CBC ####[place] [address] USAGlobulin (S) [Mass/Vol]2.8 g/dLNormal The [facility] Health Physician GroupComment on above:Performed By: #### CK, HS TROP, CMP, BNP, CBC ####[place] [address] USAGlucose [Mass/Vol]374 mg/iKZorv04-309Pmw [facility] Comment on above:Result Comment: Random Glucose Reference Range is dependent on time and content of last meal. Glucose of more than 200 mg/dL in a nonstressed, ambulatory subject supports the diagnosis of Diabetes Mellitus. ADA recommended reference rangePerformed By: #### CK, HS TROP, CMP, BNP, CBC ####[place] [address] USAPotassium [Moles/Vol] 4.4 mmol/LNormal3.5-5.1The [facility] Phys[facility] GulfportComment on above:Performed By: #### CK, HS TROP, CMP, BNP, CBC ####[place] [address] USAProtein [Mass/Vol]6.7 g/dLNormal6.4-8.9The [facility] Physician [facility] GulfportComment on above:Performed By: #### CK, HS TROP, CMP, BNP, CBC ####[place] [id number] USASodium [Moles/Vol]132 mmol/JOnm486-688Mai [facility]lands Physician GroupComment on above:Performed By: #### CK, HS TROP, CMP, BNP, CBC ####[address] [address] [place] [address] USAUrea nitrogen [Mass/Vol]33 mg/dLHigh7-25The [facility] Health Physician GroupComment on above:Performed By: #### CK, HS TROP, CMP, BNP, CBC ####[place] [place] [address] USACreatine Kinaseon 34-76-7794ST [Catalytic activity/Vol]67 U/TEtludo77-271Buc [facility] Physician GroupComment on above: Performed By: #### CK, HS TROP, CMP, BNP, CBC ####[address] [address] USACreatine kinase [Enzymatic activity/volume] in Serum or PlasmaOrdered By: Tenzin Ortiz on 08-41-8037PH [Catalytic activity/Vol]Creatine kinase [Enzymatic activity/volume] in Serum or Xriijc04-219XuaonmsehCorey HospitalCreatinine [Mass/volume] in Serum or PlasmaOrdered By: Tenzin Ortiz on 36-10-9086Trciikzypw [Mass/Vol]Creatinine [Mass/volume] in Serum or PlasmaHigh0.70-1.30[facility] Dipstick and Microscopicon 21-13-6075Zjomabsjvi (U)ClearNormalClearThe [facility]cu Health Physician GroupComment on above:Order Comment: Name Collection Type:: Clean- Voided MidstreamPerformed By: #### ADDONUAPLUS ####[address] [address] USABacteria,UrineRareNormalNone SeenThe Ecu Health Physician GroupComment on above:Order Comment: Name Collection Type:: Clean-Voided MidstreamPerformed By: #### ADDONUAPLUS ####[address] [address] USABilirubin,UrineNegativeNormal NegativeThe Ecu Health Physician GroupComment on above:Order Comment: Name Collection Type:: Clean-Voided MidstreamPerformed By: #### ADDONUAPLUS ####[address] [address] USAColor (U)Light-YellowNormalYellowThe [facility]cu Health Physician GroupComment on above:Order Comment: Name Collection Type:: Clean-Voided MidstreamPerformed By: #### ADDONUAPLUS ####[address] [address] USAGlucose Ql (U)>=HighNormalThe Ecu Health Physician GroupComment on above:Order Comment: Name Collection Type:: Clean-Voided MidstreamPerformed By: #### ADDONUAPLUS ####[address] [address] USAHyaline Casts,Urine0 [LPF]Normal0-8The [facility] Comment on above:Order Comment: Name Collection Type:: Clean-Voided Midstream Result Comment: PERFORMED BY:[address] [place], [place] [phone] MEDICAL DIRECTORCRISTHIAN EDDY M.D.Performed By: #### ADDONUAPLUS ####[address] [address] USAKetones Ql (U)NegativeNormalNegative The [facility]cu Health Physician GroupComment on above:Order Comment: Name Collection Type:: Clean-Voided MidstreamPerformed By: #### ADDONUAPLUS ####[address] [address] USALeukocyte esterase Test strip Ql (U)NegativeNormalNegativeSt. Vincent'[facility] Southside Physician GroupComment on above:Order Comment: Name Collection Type:: Clean-Voided MidstreamPerformed By: #### ADDONUAPLUS ####[address] [address] USANitrite,UrineNegativeNormalNegativeSt. [facility] Physician [facility] Comment on above:Order Comment: Name Collection Type:: Clean-Voided Midstream Performed By: #### ADDONUAPLUS ####[address] [place] [address] USAOccult Blood,Urine1+HighNegativeThe [facility]cu Health Physician GroupComment on above:Order Comment: Name Collection Type:: Clean- Voided MidstreamResult Comment: PERFORMED BY:[address] [address] [address] [place], [place] [phone] MEDICAL BONITA HUFF M.D.Performed By: #### ADDONUAPLUS ####[address] [address] USApH (U)8.0 [pH]Normal 5.0-9.0The [facility] Health Physician GroupComment on above:Order Comment: Name Collection Type:: Clean-Voided MidstreamPerformed By: #### ADDONUAPLUS ####[address] [address] USAProtein (U) [Mass/Vol]300 mg/dLHighNegativeThe [facility] Health Physician GroupComment on above:Order Comment: Name Collection Type:: Clean-Voided MidstreamPerformed By: #### ADDONUAPLUS ####[address] [address] USARBC,Urine10 [HPF]High0-4The [facility] Health Physician GroupComment on above: Order Comment: Name Collection Type:: Clean-Voided MidstreamPerformed By: #### ADDONUAPLUS ####[place] [address] USASpecificy [place],Urine1.324Dgvymd1.001-1.030The [facility] Health Physician GroupComment on above:Order Comment: Name Collection Type:: Clean-Voided MidstreamPerformed By: #### ADDONUAPLUS ####[address] [address] USAUrobilinogen,UrineNormalNormalNormalThe [facility] Health Physician GroupComment on above:Order Comment: Name Collection Type:: Clean-Voided MidstreamPerformed By: #### ADDONUAPLUS ####[address] [address] USAWBC,Urine5 [HPF]High0-4The [facility] Health Physician GroupComment on above:Order Comment: Name Collection Type:: Clean-Voided MidstreamPerformed By: #### ADDONUAPLUS ####[facility] [place] [address] USAECG 12 lead ECGon 08-01-2024 ECG 12 lead ECGNormalThe [facility]cu Health Physician GroupEosinophils Auto (Bld) [#/Vol] Ordered By: Tenzin Ortiz on 65-84-5252Wbqwurbxyno (Bld) [#/Vol]Automated eosinophil count0.0-0.45Corey HospitalEosinophils/100 WBC Auto (Bld)Ordered By: Tenzin Ortiz on 93-70-7962Xjnuhicqxgq/100 WBC (Bld) Automated eosinophil %.Corey HospitalEpithelial cells.squamous [#/area] in Urine sediment by Automated countOrdered By: Tenzin Ortiz on 74-66-7070Ifzamyeean cells.squamous Auto (Urine sed) [#/Area] Epithelial cells.squamous [#/area] in Urine sediment by Automated countCorey HospitalErythrocyte distribution width Auto (RBC) [Ratio]Ordered By: Tenzin Ortiz on 70-29-5465Rlguucjkgsg distribution width (RBC) [Ratio] Erythrocyte distribution width [Ratio] by Automated bewypPnve70.0-14.8Corey HospitalErythrocytes [#/area] in Urine sediment by Automated countOrdered By: Tenzin Ortiz on 25-21-9824DAJ Auto (Urine sed) [#/Area] Erythrocytes [#/area] in Urine sediment by Automated countHigh0-4FMansfield HospitalGlobulin Calc (S) [Mass/Vol]Ordered By: Tenzin Ortiz on 44-44-1201Kwtiyusm (S) [Mass/Vol]Serum globulin measurement by calculation (mass/volume)Corey HospitalGlucose [Mass/volume] in Serum or PlasmaOrdered By: Tenzin Ortiz on 55-15-9116Ziryalb [Mass/Vol]Glucose [Mass/volume] in Serum or HmysvlLzaf85-738TluaqrjouCorey Hospital Comment on above:ADA recommended reference rangeRandom Glucose Reference Range is dependent on time and content of last meal. Glucose of more than 200 mg/dL in a nonstressed, ambulatory subject supports the diagnosisof Diabetes Mellitus. Glucose [Mass/volume] in Urine by Test stripOrdered By: Tenzin Ortiz on 44-42-9789Xrxzavv Test strip (U) [Mass/Vol]Glucose [Mass/volume] in Urine by Test stripMarmet Hospital For Crippled ChildrenNormKettering Health TroyHematocrit Auto (Bld) [Volume fraction]Ordered By: Tenzin Ortiz on 43-43-1743Ujscyddlti (Bld) [Volume fraction]Hematocrit [Volume Fraction] of Blood by Automated gefjsJze04.8-50.0 Core[facility] HospitalHemoglobin Test strip Ql (U)Ordered By: Tenzin Ortiz on 73-11-6374Ekfwykycox Ql (U)Hemoglobin [Presence] in Urine by Test stripMarmet Hospital For Crippled ChildrenNegFulton County Health CenterHemoglobin [Mass/volume] in BloodOrdered By: Tenzin Ortiz on 46-74-4008Hsyotcjfwc (Bld) [Mass/Vol] Hemoglobin [Mass/volume] in DkcraQwm61.0-17.0[facility] Hyaline casts [#/area] in Urine sediment by Automated countOrdered By: Tenzin Ortiz on 03-60-9494Gtivwhn casts Auto (Urine sed) [#/Area]Hyaline casts [#/area] in Urine sediment by Automated count08Corey HospitalKetones Test strip Ql (U)Ordered By: Tenzin Ortiz on 92-26-2479Sjvgvsr Ql (U)Ketones [Presence] in Urine by Test stripUniversity Hospitals Health SystemLeukocyte esterase [Presence] in Urine by Test stripOrdered By: Tenzin Ortiz on 97-06-5679Yjmqsyuqu esterase Test strip Ql (U)Leukocyte esterase [Presence] in Urine by Test stripUniversity Hospitals Health System Leukocytes [#/area] in Urine sediment by Automated countOrdered By: Tenzin Ortiz on 74-17-1699NUU Auto (Urine sed) [#/Area]Leukocytes [#/area] in Urine sediment by Automated countMarmet Hospital For Crippled Children04FMansfield HospitalLeukocytes [#/volume] corrected for nucleated erythrocytes in Blood by Automated coun Ordered By: Tenzin Ortiz on 61-41-6632DDW corrected for nucl RBC Auto (Bld) [#/Vol]Leukocytes [#/volume] corrected for nucleated erythrocytes in Blood by Automated coun4.1-10.5FMansfield HospitalLymphocytes Auto (Bld) [#/Vol]Ordered By: Tenzin Ortiz on 99-66-3340Esfehltfgpj (Bld) [#/Vol] Lymphocytes [#/volume] in Blood by Automated countLow1.00-4.8Corey HospitalLymphocytes/100 WBC Auto (Bld)Ordered By: Tenzin Ortiz on 46-82-2791Qbtwbinwwtg/100 WBC (Bld)Lymphocytes/100 leukocytes in Blood by Automated count.[facility] HospitalH Auto (RBC) [Entitic mass] Ordered By: Tenzin Ortiz on 30-47-1938TGT (RBC) [Entitic mass]MCH [Entitic mass] by Automated count27.5-35.2FMansfield HospitalMCHC Auto (RBC) [Mass/Vol]Ordered By: Tenzin Ortiz on 78-33-3646SLMU (RBC) [Mass/Vol]MCHC [Mass/volume] by Automated count32.5-35.6FMansfield HospitalMCV Auto (RBC) [Entitic vol]Ordered By: Tenzin Ortiz on 90-31-1608GLV (RBC) [Entitic vol]MCV [Entitic volume] by Automated count83.5-101Corey HospitalMonocyte distribution width [Entitic volume] in Blood by Automated Ordered By: Tenzin Ortiz on 88-22-3183Xasigudm distribution width Auto (Bld) [Entitic vol]Monocyte distribution width [Entitic volume] in Blood by Automated 0.00-20.00Corey HospitalMonocytes Auto (Bld) [#/Vol]Ordered By: Tenzin Ortiz on 92-09-2698Dbgcocknr (Bld) [#/Vol]Automated blood monocyte count0.0-0.8Corey HospitalMonocytes/100 WBC Auto (Bld)Ordered By: Tenzin Ortiz on 49-58-5347Tgucmvznf/100 WBC (Bld)Automated monocyte %. Corey HospitalNatriuretic peptide B [Mass/Vol]Ordered By: Tenzin Ortiz on 84-01-5499Krnpvurjgrp peptide B (Bld) [Mass/Vol]BNP ser/plas High5-100Corey HospitalNeutrophils Auto (Bld) [#/Vol]Ordered By: Tenzin Ortiz on 08-10-3590Qpwwarqubzy (Bld) [#/Vol]Neutrophils [#/volume] in Blood by Automated count1.8-7.7FMansfield Hospital Neutrophils/100 WBC Auto (Bld)Ordered By: Tenzin Ortiz on 08-01-2024 Neutrophils/100 WBC (Bld)Automated neutrophil %.Corey HospitalNitrite Test strip Ql (U)Ordered By: Tenzin Ortiz on 66-33-5611Zqiqnzx Ql (U)Nitrite [Presence] in Urine by Test stripNegFulton County Health CenterNo Panel InformationOrdered By: Tenzin Ortiz on 00-08-0104Fyfocosyo GFR (CKD-EPI)16.592 mL/MinCorey HospitalPharmacy Creatinine Clearance (Chem23.50[facility] Hospital16.592 mL/MinCorey Hospital23.50Corey HospitalNucleated erythrocytes [Presence] in Blood by Automated countOrdered By: Tenzin Ortiz on 37-33-9226Nlaprsewg RBC Auto Ql (Bld)Nucleated erythrocytes [Presence] in Blood by Automated count0-0.5FMansfield HospitalPlatelet mean volume Auto (Bld) [Entitic vol]Ordered By: Tenzin Ortiz on 38-01-5914Zsvdwbxm mean volume (Bld) [Entitic vol]Platelet mean volume [Entitic volume] in Blood by Automated count6.6-10.1FMansfield HospitalPlatelets Auto (Bld) [#/Vol]Ordered By: Tenzin Ortiz on 22-26-6374Nwsjhsagm (Bld) [#/Vol]Platelets [#/volume] in Blood by Automated hkratOxc080-550EjznbdaioCorey HospitalPotassium [Moles/volume] in Serum or PlasmaOrdered By: Tenzin Ortiz on 57-31-5060Oeonhnhxn [Moles/Vol]Potassium [Moles/volume] in Serum or Plasma 3.5-5.1FMansfield HospitalProtein Test strip (U) [Mass/Vol]Ordered By: Tenzin Ortiz on 64-36-5117Omntvzx (U) [Mass/Vol]Protein [Mass/volume] in Urine by Test stripHighNegativeCorey HospitalProtein [Mass/volume] in Serum or PlasmaOrdered By: Tenzin Ortiz on 80-53-0752Rpcuuha [Mass/Vol]Protein [Mass/volume] in Serum or Plasma6.4-8.9Corey HospitalRBC Auto (Bld) [#/Vol]Ordered By: Tenzin Ortiz on 89-30-1666APQ (Bld) [#/Vol]Erythrocytes [#/volume] in Blood by Automated countLow3.90-5.60 [facility] Hospitalerum or plasma albumin/globulin mass ratio Ordered By: Tenzin Ortiz on 59-80-2708Sryyiwj/Globulin [Mass ratio]Serum or plasma albumin/globulin mass ratioMagruder Memorial Hospitalerum or plasma anion gap determinationOrdered By: Tenzin Ortiz on 85-93-6513Wwjar gap [Moles/Vol]Serum or plasma anion gap determination6.0-15.0[facility] Hospitalodium [Moles/volume] in Serum or PlasmaOrdered By: Tenzin Ortiz on 75-76-5104Qaatyz [Moles/Vol]Sodium [Moles/volume] in Serum or PlasmaLow 136-145Mag[facility]uder [facility] Hospitalpecific gravity Test strip (U) [Rel density]Ordered By: Tenzin Ortiz on 48-75-2152Pgbxiwwh gravity (U) [Rel density]Specific gravity of Urine by Test strip1.001-1.030Corey HospitalTroponin I High Sensitivityon 08-13-1244Wxllyhiu I High Ppbarosecxv01.3 pg/mLHigh0.0-20.0The Ecu Health Physician GroupComment on above: Result Comment: PERFORMED BY:[address] [place], [place] [phone] MEDICAL DIRECTORCRISTHIAN EDDY M.D.Performed By: #### CK, HS TROP, CMP, BNP, CBC ####[address] [place] [address] USATroponin I.cardiac [Mass/volume] in Serum or Plasma by Detection limit <= 0.01 ng/Ordered By: Tenzin Ortiz on 70-44-5893Bzaiqbtz I.cardiac DL <= 0.01 ng/mL [Mass/Vol] Troponin I.cardiac [Mass/volume] in Serum or Plasma by Detection limit <= 0.01 ng/High0.0-20.0Corey HospitalUrea nitrogen [Mass/volume] in Serum or PlasmaOrdered By: Tenzin Ortiz on 49-92-2814Ysgk nitrogen [Mass/Vol] Urea nitrogen [Mass/volume] in Serum or PlasmaHigh7-25Corey HospitalUrobilinogen Test strip (U) [Mass/Vol]Ordered By: Tenzin Ortiz on 90-92-3730Ezlpompsqpoz (U) [Mass/Vol]Urobilinogen [Mass/volume] in Urine by Test stripCorey HospitalWBC Auto (Bld) [#/Vol]Ordered By: Tenzin Ortiz on 85-26-9995BVR (Bld) [#/Vol]Leukocytes [#/volume] in Blood by Automated count4.1-10.5FMansfield HospitalXR chest 1V portableon 12-20-0806UT chest 1V portableNoSampson Regional Medical Center Physician GrouppH Test strip (U)Ordered By: Tenzin Ortiz on 69-91-9025fI (U)pH of Urine by Test strip5.0-9.0 Corey HospitalANTITHROMBIN IIIon 22-36-2436TKVBDNIBZCFC ACTUAL/NORMAL IN PPP BY CHROMOGENIC STTKAS95 %Loizov46-288MabgffucceSt. Elizabeth HospitalComment on above:Performed By: #### [id number] #### [facility] TISSUE TYPING (HISTOTRAC) [address] [place] [address] USAAPC RESISTANCEon 05-99-2564VXVMCOBGM PROTEIN C RESISTANCE (TIME RATIO) IN PPP BY COAG ASSAY2.3Dmrldv8-5.9UnSt. Elizabeth HospitalComment on above:Performed By: #### [id number] #### [facility] [address] [place], [place] [address]N-QXJH NATRIURETIC PEPTIDEon 58-62-6689Bihemtvwqje peptide B (Bld) [Mass/Vol]2079 pg/mLHigh0-100UnSt. Elizabeth HospitalComment on above:Performed By: #### [id number] #### [facility] ([facility]) [address] [place], [place] [address]RJHOEOXZR, DIRECTon 42-74-5686Wnlnntkjj [Mass/Vol]0.1 mg/dLNormal0-0.2UnSt. Elizabeth HospitalComment on above:Performed By: #### [id number] #### [facility] (BEAKER) [address] [place], [place] [address]K-NXYUMRQkq 07-14-2024 PEPTIDE (NG/ML) IN SER/PLAS2.3 ng/mL Normal0.5-3.3UnSt. Elizabeth HospitalComment on above:Result Comment: INTERPRETIVE INFORMATION: Serum, C-Peptide Reference Interval applies to fasting specimens. To convert to nmol/L, multiply by 0.33 Performed By: [facility] Sounder [address] [place] [address] Front Desk Specialist: Gage Daley MD, PhD CLIA Number: [id number] By: #### [id number] #### [facility] ([facility]) [address] [place], [place] [address]UBG WITH AUTO DIFFERENTIALon 68-17-1094Aaxewmrzvuj distribution width (RBC) [Ratio]14.4 %Adkbbl41.5-15.0UnSt. Elizabeth HospitalComment on above:Performed By: #### [id number] #### [facility] ([facility]) [address] [place], [place] [address]MNHBKXAIABU MEAN CORPUSCULAR HEMOGLOBIN CONCENTRATION (G/DL) BY COJQLLQFC79.0 g/iVMzzqkz92.0-35.0UnSt. Elizabeth HospitalComment on above:Performed By: #### [id number] #### [facility] ([facility] [address] [place], [place] [address]Hbgbfkdpxy (Bld) [Volume fraction]34.2 %Low39.0-55.0UnSt. Elizabeth HospitalComment on above:Performed By: #### [id number] #### [facility] (BEAKER) [address] [place], [place] [address]Czktraeevh (Bld) [Mass/Vol]11.3 g/dLLow13.0-17.0UnSt. Elizabeth HospitalComment on above:Performed By: #### [id number] #### [facility] ([facility]) [address] [place] [address]ADSMIZFE PLATELET FRACTION %2.1 %Normal0.8-6.3UnSt. Elizabeth HospitalComment on above:Performed By: #### [id number] #### [facility] ([facility]) [address] [place] [address]DUX (RBC) [Entitic mass]29.9 ipWrsico22.0-33.0UnSt. Elizabeth HospitalComment on above:Performed By: #### [id number] #### [facility] ([facility]) [address] [place] [address]MQM (RBC) [Entitic vol]90.5 sAFnmeye06.0-98.0UnSt. Elizabeth HospitalComment on above:Performed By: #### [id number] #### [facility] ([facility]) [address] [place] [address]NJVM (PER 100 WBCS) BY AUTOMATED COUNT0.0 %Bpzsap5JklyipqzviSt. Elizabeth HospitalComment on above:Performed By: #### [id number] #### [facility] ([facility]) [address] [place] [address]LTIXNCSZE (10*3/UL) IN BLOOD AUTOMATED COUNT93 10*3/pSUsx132-869 [facility] System GlenbeighComment on above:Result Comment: Platelets checked, no clumps or clotsPerformed By: #### [id number] #### [facility] ([facility]) [address] [place] [address]AWP (Bld) [#/Vol]3.78 10*6/uLLow4.20-5.70UnSt. Elizabeth HospitalComment on above:Performed By: #### [id number] #### [facility] ([facility]) [address] [place] [address]NKR (Bld) [#/Vol]3.92 10*3/uLLow4.00-10.60UnSt. Elizabeth HospitalComment on above:Performed By: #### [id number] #### [facility] (BEAKER) [address] [place], [place] [address]BIXIMYEOLHWSD METABOLIC PANELon 43-14-5520Zmxggrs [Mass/Vol]4.1 g/dLNormal3.5-5.7UnSt. Elizabeth HospitalComment on above:Performed By: #### [id number] #### [facility] (BEAKER) [address] [place], [place] [address]WME [Catalytic activity/Vol]68 U/TJpwefe05-328GtgmjcncysSt. Elizabeth HospitalComment on above:Performed By: #### [id number] #### [facility] (BEAKER) [address] [place], [place] [address]VGT [Catalytic activity/Vol]9 U/LNormal7-52UnSt. Elizabeth HospitalComment on above:Performed By: #### [id number] #### [facility] (BEAKER) [address] [place], [place] [address]Ojszv gap [Moles/Vol]13 mmol/LNormal7-20UnSt. Elizabeth HospitalComment on above:Performed By: #### [id number] #### [facility] (BEAKER) [address] [place], [place] [address]ZIN [Catalytic activity/Vol]13 U/RJdxrep91-30GzsxcdgsxfSt. Elizabeth HospitalComment on above:Performed By: #### [id number] #### [facility] (BEAKER) [address] [place], [place] [address]Ltdobhpwg [Mass/Vol]0.5 mg/dLNormal0.3-1.0UnSt. Elizabeth HospitalComment on above:Performed By: #### [id number] #### [facility] (BEAKER) [address] [place], [place] [address]Hvsfbhs [Mass/Vol]8.5 mg/dLLow8.6-10.3UnSt. Elizabeth HospitalComment on above:Performed By: #### [id number] #### [facility] (BEAKER) [address] [place], [place] [address]Broxpprx [Moles/Vol]96 mmol/LEgs73-174XyrytqafcwSt. Elizabeth HospitalComment on above:Performed By: #### [id number] #### [facility] ([facility]) [address] [place], [place] [address]CJ1 [Moles/Vol]30 mmol/QLmsowa88-51UvtdzhrjjySt. Elizabeth HospitalComment on above:Performed By: #### [id number] #### [facility] ([facility]) [address] [place], [place] [address]Ycrlypfxzb [Mass/Vol]5.89 mg/dLHigh0.70-1.30UnSt. Elizabeth HospitalComment on above:Performed By: #### [id number] #### [facility] ([facility]) [address] [place], [place] [address]LZMCEKHVUY FILTRATION RATE ML/MIN/1.73 SQ M.PREDICTED 11.7 mL/min/1.73m*2Low>60.0UnSt. Elizabeth HospitalComment on above: Result Comment: The [facility]???s estimated glomerular filtration rate (eGFR) will no [...] potential consequences that do not disproportionately affect anyone group of individuals.Performed By: #### [id number] #### [facility] ([facility]) [address] [place], [place] [address]Aqjddyv [Mass/Vol]116 mg/kCDmef01-957WpkejdlmdoSt. Elizabeth HospitalComment on above:Performed By: #### [id number] #### [facility] ([facility]) [address] [place], [place] [address]Mtdgpkdel [Moles/Vol]4.2 mmol/LNormal3.5-5.1UnSt. Elizabeth HospitalComment on above:Performed By: #### [id number] #### [facility] (BEAKER) [address] [place], [place] [address]Qembqop [Mass/Vol]6.4 g/dLNormal6.0-8.3UnSt. Elizabeth HospitalComment on above:Performed By: #### [id number] #### [facility] (BEAKER) [address] [place], [place] [address]Igvxuj [Moles/Vol]135 mmol/PFuc896-037SbgdzkfudySt. Elizabeth HospitalComment on above:Performed By: #### [id number] #### [facility] (BEAKER) [address] [place], [place] [address]Ivtd nitrogen [Mass/Vol]40 mg/dLHigh7-25UnSt. Elizabeth HospitalComment on above:Performed By: #### [id number] #### [facility] (BEAKER) [address] [place], [place] [address]CPKY NITROGEN/CREATININE (MASS RATIO) IN SER/PLAS6.8 NormalUnSt. Elizabeth HospitalComment on above:Performed By: #### [id number] #### [facility] (BEAKER) [address] [place], [place] [address]XHNZSU 5 LEIDENon 49-04-1020CUERLJ V LEIDENNegative NormalACMC Healthcare System GlenbeighComment on above:Result Comment: Indication for testing: Assess genetic risk for thrombosis. NEGATIVE: The factor V Leiden variant, c.1601G>A; p.Rzr075Ehs, was not detected. This does not exclude [...] function in the F5 gene variant c.1601G>A (p.Yig742Ovk). Legacy nomenclature: [id number] (1691G>A) CLINICAL SENSITIVITY: 20-50 percent of individuals with an isolated VTE have the FVL variant. METHODOLOGY: Polymerase chain reaction and fluorescence monitoring. ANALYTICAL SENSITIVITY AND SPECIFICITY: 99 percent. LIMITATIONS: Diagnostic errors can occur due to rare sequence variations. F5 gene mutations, other than p.Rbb299Fwa, will not be detected. This test was developed and its performance characteristics determined by [facility]. It has not been cleared or approved by the [place] Food and Drug Administration. This test was performed in a CLIA certified laboratory and is intended for clinical purposes. Counseling and informed consent are recommended for genetic testing. Consent forms are available online. Performed By: [facility] [address] [place] [address] Front Desk Specialist: Gage Daley MD, PhD CLIA Number: [id number] By: #### [id number] #### [facility] [address] [place], [place] [address]VPHXJP V SPECIMENWhole BloodNormalUniversCleveland Clinic Medina HospitalComment on above:Performed By: #### [id number] #### [facility] [address] [place], [place] [address]TCZIMSHZPE A1Con 22-89-8446Hejclld [Mass/Vol]186 mg/dLNormal [facility] System GlenbeighComment on above:Performed By: #### [id number] #### [facility] ([facility]) [address] [place], [place] [address]UwX0s (Bld) [Mass fraction]8.1 %High4.0-6.0UnSt. Elizabeth HospitalComment on above:Performed By: #### [id number] #### [facility] ([facility]) [address] [place], [place] [address]TBJXFQDVR A ANTIBODY, IGMon 17-87-5528ZKAIODGLA A VIRUS IGM AB PRESENCE IN SER/PLASNon-ReactiveNormalNonreactiveUnSt. Elizabeth HospitalComment on above:Performed By: #### [id number] #### [facility] ([facility]) [address] [place], [place] [address]CPSPZEYYP B CORE ANTIBODY, IGMon 65-63-2575SFBEBBGWJ B VIRUS CORE IGM AB PRESENCE IN SER/PLAS BY IMMUNOASSYNegativeNormalNegativeUnSt. Elizabeth HospitalComment on above:Result Comment: INTERPRETIVE INFORMATION: Hepatitis B Core Ab, IgM This assay should not be used for blood donor screening, associated re-entry protocols, or for screening Human Cells, Tissues and Cellular and Tissue-Based Products (HCT/P). Performed By: [facility] [address] [place] [address] Front Desk Specialist: Gage Daley MD, PhD CLIA Number: [id number] By: #### [id number] #### [facility] [address] [place], [place] [address]SMBOUUYGL B CORE ANTIBODY, TOTALon 49-95-1110EELLVNWJE B VIRUS CORE AB (PRESENCE) IN SER/PLAS BY IMMNon-ReactiveNormmiNonreactiveUnSt. Elizabeth HospitalComment on above:Performed By: #### [id number] #### [facility] ([facility]) [address] [place], [place] [address]TMJXNRNLS B SURFACE ANTIBODY QUANTon 59-79-9879XVIHDYFOP B VIRUS SURFACE AB (MIU/ML) IN SERUM1.55 mIU/mLNormalUnSt. Elizabeth HospitalComment on above:Result Comment: INTERPRETATION: NONREACTIVE <8.00 mIU/mL INDETERMINATE 8.00 - 12.00 mIU/mL REACTIVE >12 mIU/mLPerformed By: #### [id number] #### [facility] TISSUE TYPING (HISTOTRAC) [address] [place] [address] USAHEPATITIS B SURFACE ANTIGENon 88-02-7664NRJIVEVBW B VIRUS SURFACE AG PRESENCE IN SERUMNon-ReactiveNormBanneractiveACMC Healthcare System GlenbeighComment on above:Performed By: #### [id number] #### [facility] TISSUE TYPING (HISTOTRAC) [address] [place] [address] USAHEPATITIS C ANTIBODYon 88-64-3486SGDTIZQER C VIRUS AB PRESENCE IN SERUMNon-ReactiveNormmiNonreactiveUnSt. Elizabeth HospitalComment on above:Performed By: #### [id number] #### [facility] (BEAKER) [address] [place], [place] [address]DQB COMBO 4Gon 64-31-4408IIK COMBO 4GNegativeNormalNegative [facility] System GlenbeighComment on above:Performed By: #### [id number] #### [facility] (BEAKER) [address] [place], [place] [address]QIN ABC CLASS I TYPINGon 4A*-12NormalUniCleveland Clinic Euclid HospitalComment on above:Performed By: #### [id number] #### [facility] [address] [place], [place] [address]W*-229NormalUniversCleveland Clinic Medina HospitalComment on above: Performed By: #### [id number] #### [facility] [address] [place], [place] [address]I*-144NormalUniversCleveland Clinic Medina HospitalComment on above: Performed By: #### [id number] #### [facility] [address] [place], [place] [address]L*-258NormalUniversCleveland Clinic Medina HospitalComment on above: Performed By: #### [id number] #### [facility] [address] [facility], [place] [address]FF*-14NormalUniversity of Wad[facility] Regional Medical CenterCommunson healthcare manistee hospital on above: Performed By: #### [id number] #### [facility] [address] [place] [address], [place] [address]D*-107NormalUniversity of [facility]ad[facility] Medical CenterCommunson healthcare manistee hospital on above: Performed By: #### [id number] #### [facility] [address] [place] [address], [place] [address]X*-216NormalUniversity of Wad[facility] Regional Medical CenterCommunson healthcare manistee hospital on above: Performed By: #### [id number] #### [address] [address]RFB ABC CLASS I TYPING TEST METHODClass I typing by PCR-SSOP LuminexNormalUniCleveland Clinic Euclid HospitalCommunson healthcare manistee hospital on above:Performed By: #### [id number] #### [address] [address]RIU ABC TESTED [id number] of [facility] CenterCommunson healthcare [facility] hospital on above:Performed By: #### [id number] #### [address], [place] [address] CLASS II TYPINGon 22-95-1468DCK4*-102:01NormalUniverscleveland clinic euclid hospital of [facility] CenterCommunson healthcare manistee hospital on above:Performed By: #### [id number] #### [address] [address]BZB6*-103NormalUniverscleveland clinic euclid hospital of [facility] CenterCommunson healthcare [facility]ist[facility] hospital on above:Performed By: #### [id number] #### [address], [place] [address]FCU6*-204NormalUniverscleveland clinic euclid hospital of [facility] CenterCommunson healthcare [facility]ist[facility] hospital on above:Performed By: #### [id number] #### [facility] [address] [place] [address]AGY1*-18NormalUniversity of Wad[facility] Regional Medical CenterCommunson healthcare manistee hospital on above:Performed By: #### [id number] #### [facility] [address] [facility] [place], [place] [address]PHR7*-24NoAultman HospitalComment on above:Performed By: #### [id number] #### [facility] [address]ALTH[address] [place], [place] [address]XQK2*-14NoalUniCleveland Clinic Euclid HospitalComment on above:Performed By: #### [id number] #### [facility] [address] [facility] [facility] [place] [address]LFC7*-28NoalUniCleveland Clinic Euclid HospitalCommunson healthcare manistee hospital on above:Performed By: #### [id number] #### [facility] 0 [facility] [place], [place] [address]YAA9*-153NoFormerly [facility] [place]ow[facility] HospitalniCleveland Clinic Euclid HospitalCommunson healthcare manistee hospital on above:Performed By: #### [id number] #### [facility] [address] [place] [address] [place], [place] [address] CLASS II TYPING TEST METHODClass II typing by PCR-SSOP LuminexNoAultman HospitalCommunson healthcare manistee hospital on above:Performed By: #### [id number] #### [facility] [address] [facility]ALTH[address] [place], [place] [address]YSZ DR TESTED [id number] HospitalCommunson healthcare manistee hospital on above:Performed By: #### [id number] #### [facility] [address] [facility]ALTH[address] [place], [place] [address]HJFWZ PANELon 92-76-1088WXOD/HDL3.5 mg/dLNoalUniCleveland Clinic Euclid HospitalComment on above:Performed By: #### [id number] #### [facility] ([facility]) [address] [place], [place] [address]Arkhfmdluqx [Mass/Vol]112 mg/hLXqw930-318JdnvczawilSt. Elizabeth HospitalComment on above:Performed By: #### [id number] #### [facility] ([facility]) [address] MED[address] CENT[address] [place], [place] [address]Dxsvgpogp [Mass/Vol]44 mg/cOYjrkfy43-009JmogxkzgsoSt. Elizabeth HospitalComment on above:Result Comment: TRIGLYCERIDE REFERENCE RANGE: 20 YEARS AND OLDER CARDIOVASCULAR RISK LESS THAN 150 mg/dL LOW RISK 150 TO 199 mg/dL BORDERLINE RISK 200 mg/dL AND GREATER HIGH RISKPerformed By: #### [id number] #### [facility] ([facility]) [address] [place] [address]Lgvqyjflt [Mass/Vol]71 mg/dLNormal0-160UnSt. Elizabeth HospitalComment on above:Performed By: #### [id number] #### [facility] ([facility]) [address] [place] [address]Obrhackba [Mass/Vol]32 mg/wXMpdnjt05-39HmoqldjeqsSt. Elizabeth HospitalComment on above:Performed By: #### [id number] #### [facility] ([facility]) [address] [place], [place] [address]FDP HDL CHOL. (LDL+VLDL)80NormalUniversCleveland Clinic Medina HospitalComment on above:Performed By: #### [id number] #### [facility] ([facility]) [address] [place], [place] [address]WCKYZ VLDL-C9 mg/dLNormal0-40UnSt. Elizabeth Hospital Comment on above:Performed By: #### [id number] #### [facility] ([facility]) [address] [place] [address]Gfiqf [id number] Yoel Tamayo 1985 M Date Provider Department [place] 07/14/2024 2245-[facility] OPD LAB RESOURCE [facility] OPD [facility] C No family history on fileNormalUniversCleveland Clinic Medina HospitalMANUAL DIFFERENTIALon 11-49-5012JIGBNABRQ (10*3/UL) IN BLOOD BY CALCULATION0.06 10*3/uL Normal0.00-0.20UnSt. Elizabeth HospitalComment on above:Performed By: #### [id number] #### [facility] [address] [place], [place] [address]GHRLEEJLU/100 LEUKOCYTES IN BLOOD BY AUTOMATED COUNT1.5 %High 0.0-1.0UnSt. Elizabeth HospitalComment on above:Performed By: #### [id number] #### [facility] [address] [place], [place] [address]QEPWTETPIEB (10*3/UL) IN BLOOD BY CALCULATION0.16 10*3/uLNormal 0.00-0.50UnSt. Elizabeth HospitalComment on above:Performed By: #### [id number] #### [facility] [address] [place], [place] [address]ETDQSWLEQMJ/100 LEUKOCYTES IN BLOOD BY AUTOMATED COUNT4.1 % Normal0.0-6.0UnSt. Elizabeth HospitalComment on above:Performed By: #### [id number] #### [facility] [address] [place], [place] [address]VGSTGZNY GRANULOCYTES (10*3/UL) IN BLOOD BY CALCULATION0.01 10*3/uLNormal0.00-0.20UnSt. Elizabeth HospitalComment on above: Performed By: #### [id number] #### [facility] [address] [place], [place] [address]PGVSGJZN GRANULOCYTES/100 LEUKOCYTES IN BLOOD BY AUTOMATED COUNT 0.3 %Normal0.0-1.0UnSt. Elizabeth HospitalComment on above:Performed By: #### [id number] #### [facility] [address] [place], [place] [address]SIQWGHLFFDS (10*3/UL) IN BLOOD BY CALCULATION1.08 10*3/uLLow 1.20-4.00UnSt. Elizabeth HospitalComment on above:Performed By: #### [id number] #### [facility] [address] [place], [place] [address]TJRYQHIYCFD/100 LEUKOCYTES IN BLOOD BY AUTOMATED COUNT27.6 % Cjywlm95.0-45.0UnSt. Elizabeth HospitalComment on above:Performed By: #### [id number] #### [facility] [address] [place] [address]CLFKRNTDU (10*3/UL) IN BLOOD BY CALCUATION0.25 10*3/uLNormal 0.10-1.00UnSt. Elizabeth HospitalComment on above:Performed By: #### [id number] #### [facility] [address] [place], [place] [address]AKIORLQLJ/100 LEUKOCYTES IN BLOOD BY AUTOMATED COUNT6.4 %Normal 5.0-12.0UnSt. Elizabeth HospitalComment on above:Performed By: #### [id number] #### [facility] [address] [place], [place] [address]MRYNCQYUPSL (10*3/UL) IN BLOOD BY CALCULATION2.4 10*3/uLNormal 1.6-7.6UnSt. Elizabeth HospitalComment on above:Performed By: #### [id number] #### [facility] [address] [place], [place] [address]XJGQYEQUPXT/100 LEUKOCYTES IN BLOOD BY AUTOMATED COUNT60.1 % Rkbism33.0-72.0UnSt. Elizabeth HospitalComment on above:Performed By: #### [id number] #### [facility] [address] [place], [place] [address]WIIHI 2 VARIANTSon 73-13-7485ZCJIE INTERLakeside Women's Hospital – [place] NoteNoSelect Medical Specialty Hospital - AkronComment on above:Result Comment: Indication for testing: Determine genetic contribution to hyperhomocysteinemia. 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 Homozygosity for the [...] has an effect on cardiovascular disease. The [place] Practice Guidelines indicate [...] a contributing factor to hyperhomocysteinemia. Variants Tested: c.665C>T(p.Cdt777Ffe) and c.1286A>C(p.Gox690Rws). (legacy names C677T and S0082I, respectively). Clinical Sensitivity: Undefined; hyperhomocysteinemia is caused [...] developed and its performance characteristics determined by [facility]. It has not been cleared or approved by the US Food and Drug Administration. This test was performed in a CLIA certified laboratory and is intended for clinical purposes. Counseling and informed consent are recommended for genetic testing. Consent forms are available online. Performed By: [facility] [address] [place] [address] Front Desk Specialist: Gage Daley MD, PhD CLIA Number: [id number] By: #### [id number] #### [facility] TISSUE TYPING (HISTOTRAC) [address] [place] [address] USAMTHFR PCR SPECIMENWhole BloodNormalUniversity [facility] Pickerington Methodist HospitalComment on above:Performed By: #### [id number] #### [facility] TISSUE TYPING (HISTOTRAC) [address] [place] [address] USAMTHFR VARIANT: C.1286A>CNegativeNormalUniCleveland Clinic Euclid HospitalComment on above:Performed By: #### [id number] #### [facility] TISSUE TYPING (HISTOTRAC) [address] [place] [address] USAMTHFR VARIANT: C.665C>THomozygousNormalUniCleveland Clinic Euclid HospitalComment on above:Performed By: #### [id number] #### [facility] TISSUE TYPING (HISTOTRAC) [address] [place] [address] USAPANEL REACTIVE ANTIBODYon 13-11-6150ZRBO SPECIMENHold for add-ons.NormalUnSt. Elizabeth HospitalComment on above:Result Comment: Auto resulted.Performed By: #### [id number] #### [facility] TISSUE TYPING (HISTOTRAC) [address] [place] [address] USAPROTEIN C ACTIVITYon 22-65-8401EWCNVCU C ACTUAL/NORMAL IN PPP BY COAGULATION ASSAY89 %Emwyai03-895ZwgybhmaxbACMC Healthcare System Glenbeigh Comment on above:Performed By: #### [id number] #### [facility] TISSUE TYPING (HISTOTRAC) [address] [place] [address] USAPROTEIN S ACTIVITYon 08-49-4778AMVOUTL S ACTUAL/NORMAL IN PPP BY COAGULATION ASSAY83 %Yffaqk60-055NqatvhyqyxACMC Healthcare System Glenbeigh Comment on above:Performed By: #### [id number] #### [facility] TISSUE TYPING (HISTOTRAC) [address] [place] [address] USAPROTHROMBIN GENE MUTATIONon 95-02-7811FUAMWLJXMDD (F2) T16488X VARIANTNegativeNormalUKettering HealthComment on above:Result Comment: Indication for testing: Assess genetic risk for thrombosis. NEGATIVE: The Factor II, prothrombin L45996H mutation, was not detected. Other causes of [...] M.D., Ph.D. 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 PATHOGENIC VARIANT TESTED: F2 c.*97G>A (B97400A). CLINICAL SENSITIVITY FOR VENOUS THROMBOSIS: Approximately 10 percent. METHODOLOGY: Polymerase chain reaction and fluorescence monitoring. ANALYTICAL SENSITIVITY AND SPECIFICITY: 99 percent. LIMITATIONS: Diagnostic errors can occur due to rare sequence variations. F2 gene variants, other than c.*97G>A (J45963T), will not be detected. This test was developed and its performance characteristics determined by [facility]. It has not been cleared or approved by the US Food and Drug Administration. This test was performed in a CLIA certified laboratory and is intended for clinical purposes. Counseling and informed consent are recommended for genetic testing. Consent forms are available online. Performed By: [facility] [address] [place] [address] Front Desk Specialist: Gage Daley MD, PhD CLIA Number: [id number] By: #### [id number] #### [employer] (BEAKER) [address] [place] [address]GI PCR SPECIMENWhole BloodNormalUniversity of Carbone Medical CenterComment on above:Performed By: #### [id number] #### [facility] ([employer]) [address] [place] [address]YCJGFTU-KAUkw 04-22-2454LDT IN PPP BY COAGULATION ASSAY 1.42Lgmo9.90-1.10UnSt. Elizabeth HospitalComment on above:Result Comment: ACCCP RECOMMENDED INR FOR WARFARIN THERAPY CONDITION INR PROPHYLAXIS OF VENOUS THROMBOSIS 2-3 (HIGH-RISK SURGERY) TREATMENT OF VENOUS THROMBOSIS 2-3 TREATMENT OF PULMONARY EMBOLISM 2-3 PREVENTION OF SYSTEMIC EMBOLISM: 2-3 ACUTE MYOCARDIAL INFARCTION TISSUE HEART VALVES VALVULAR HEART DISEASE ATRIAL FIBRILLATION RECURRENT SYSTEMIC EMBOLISM MECHANICAL HEART VALVE 2.5-3.5 FROM: ORAL ANTICOAGULANTS. MECHANISM OF ACTION, CLINICAL EFFECTIVENESS, AND OPTIMAL THERAPEUTIC RANGE. CHEST 1995;108:231S-246S.Performed By: #### [id number] #### [facility] TISSUE TYPING (HISTOTRAC) [address] [place] [address] USAPROTHROMBIN TIME (PT) IN PPP BY COAGULATION ASSAY16.0 ZzdfbpmUqid08.3-14.8UnSt. Elizabeth HospitalComment on above: Performed By: #### [id number] #### [facility] TISSUE TYPING (HISTNapera NetworksAC) [address] [place] [address] USAPSA, SCREENINGon 73-98-3323FRPZXWSG SPECIFIC AG (NG/ML) IN SER/PLAS0.2 ng/mLLow0.4-4UnSt. Elizabeth HospitalComment on above: Performed By: #### [id number] #### [facility] (BEAKER) [address] [place], [place] [address]MSKPLZ ANTIGEN CLASS Ion 85-22-9042LI SCREEN COMMENTSNo Specificites FoundNoAultman HospitalCommunson healthcare manistee hospital on above: Performed By: #### [id number] #### [facility] TISSUE TYPING (HISTOTRAC) [address] [place] [address] USAPerformed By: #### [id number] #### [facility] [address] [place], [place] [address]GONJI I TESTED [id number] MetroHealth SystemCommunson healthcare manistee hospital on above:Performed By: #### [id number] #### [facility] TISSUE TYPING (HISTOTRAC) [address] [place] [address] [address] [place], [place] [address]Communson healthcare manistee hospital on above:Performed By: #### [id number] #### [facility] TISSUE TYPING (HISTOTRAC) [address] [place] [address] USAPerformed By: #### [id number] #### [facility] [address] [place], [place] [address]JUODGH BYSigned by Govind Robison CHT([facility]) VALERIANO(ASCP), [employer] Transplant ImmunologyNoAultman HospitalCommunson healthcare manistee hospital on above: Result Comment: Class I Antigen MicrobeadsPerformed By: #### [id number] #### [facility] TISSUE TYPING (HISTOTRAC) [address] [place] [address] USAPerformed By: #### [id number] #### [facility] [address] [place], [place] [address]VRJLRQ ANTIGEN CLASS 1 TEST METHODClass I Single AntigenNoal [facility] GlenbeighCommunson healthcare manistee hospital on above:Performed By: #### [id number] #### [facility] TISSUE TYPING (HISTOTRAC) [address] [place] [address] USASINGLE ANTIGEN CLASS IIon 12-72-7994RSOVY II TESTED DATE [id number] MetroHealth SystemCommunson healthcare manistee hospital on above: Performed By: #### [id number] #### [facility] [address] [place], [place] [address]JWXILG ANTIGEN CLASS 2 TEST METHODClass II Single AntigenNormal ACMC Healthcare System GlenbeighComment on above:Result Comment: Class II Antigen MicrobeadsPerformed By: #### [id number] #### [facility] [address] [place], [place] [address]GKBYQAFOTLBZ, FREE AND TOTAL, AND SHBGon 30-26-9827KJG HORMONE BINDING GLOBULIN (NMOL/L) IN SER/PLAS48 nmol/IAxiiwn63-37NexcezwtxcSt. Elizabeth HospitalComment on above:Performed By: #### [id number] #### [facility] [address] [place], [place] [address]OALPWLSWWZBB (NG/DL) IN SER/INSM526 ng/kGHyxuqw165-451CfxltocnrySt. Elizabeth HospitalComment on above:Performed By: #### [id number] #### [facility] [address] [place], [place] [address]KPDFOKEDNESP FREE (NG/ML) IN SER/PLAS92.7 pg/yRVpcjkn05.0-244.0 [facility] Healthcare System GlenbeighComment on above:Result Comment: The concentration of free testosterone is derived from a mathematical expression based on the constant for the binding of testosterone to albumin and/or sex hormone binding globulin. Test Performed by [facility] [address] [place] [address] - Ulrsjvaf 07/14/2024 20:06Performed By: #### [id number] #### [facility] [address] [place], [place] [address]LAYK AND SCREENon 25-41-6613JK SCREENNegativeNormalUniversCleveland Clinic Medina HospitalComment on above:Performed By: #### [id number] #### [facility] ([place]) [address] [place], [place] [address]QPW group Nom (Bld)ANormalUniversity of Wadley Regional Medical CenterComment on above:Performed By: #### [id number] #### [facility] ([facility]) [address] [place], [place] [address]YX TYPE IN BLOODPositiveNormalUniversity of Wadley Regional Medical CenterComment on above:Performed By: #### [id number] #### [facility] ([place]) [address] [place], [place] [address]Z6I with Estimated Average Gluon 59-77-0244Vereqcw [Mass/Vol]209 mg/dLNormHCA Florida Suwannee Emergency Physician GroupComment on above:Result Comment: PERFORMED BY:[address] [place], [place] [phone] MEDICAL DIRECTORLEVY THOMASON M.D.Performed By: #### A1C WT eA ####[address] [place], [place] [address]VKFQwS3s (Bld) [Mass fraction]8.9 %High4.3-5.6The [facility] Comment on above:Result Comment: Increased risk for diabetes: 5.7 - 6.4 diabetes: >6.4 glycemic control for adults with diabetes: <7.0Performed By: #### A1C WT eA ####[facility] [place] [address] USAAlanine aminotransferase [Enzymatic activity/volume] in Serum or Plasma Ordered By: Dorene Valenzuela on 86-84-7243PDA [Catalytic activity/Vol]Alanine aminotransferase [Enzymatic activity/volume] in Serum or Plasma7-Corey HospitalAlbumin [Mass/volume] in Serum or Plasma by Bromocresol green (BCG) dye binding methoOrdered By: Dorene Valenzuela on 79-34-1512Gbmsnyl BCG dye [Mass/Vol]Albumin [Mass/volume] in Serum or Plasma by Bromocresol green (BCG) dye binding metho3.5-5.7FMansfield HospitalAlkaline phosphatase [Enzymatic activity/volume] in Serum or PlasmaOrdered By: Dorene Valenzuela on 03-72-0690OWG [Catalytic activity/Vol]Alkaline phosphatase [Enzymatic activity/volume] in Serum or Ggkeag94-458OcfnjqnrhCorey Hospital Aspartate aminotransferase [Enzymatic activity/volume] in Serum or PlasmaOrdered By: Dorene Valenzuela on 03-61-8715TSC [Catalytic activity/Vol]Aspartate aminotransferase [Enzymatic activity/volume] in Serum or PeggpnUsh07-99BsyexpdtgCorey HospitalBasophils Auto (Bld) [#/Vol]Ordered By: Dorene Valenzuela on 65-63-1547Ceypycupj (Bld) [#/Vol]Automated basophil count0.0-0.2FMansfield HospitalBasophils Auto (Bld) [#/Vol]on 64-04-6330Tmacghuhr (Bld) [#/Vol]Automated basophil count0.0-0.1FMansfield Hospital Basophils/100 WBC Auto (Bld)Ordered By: Dorene Valenzuela on 04-89-7914Wqcfkzith/100 WBC (Bld)Automated basophil %.Corey HospitalBasophils/100 WBC Auto (Bld)on 55-73-3014Midqerdmd/100 WBC (Bld)Automated basophil %0.2-2.0 Corey HospitalBilirubin.total [Mass/volume] in Serum or PlasmaOrdered By: Dorene Valenzuela on 96-46-2281Kexncexwm [Mass/Vol]Bilirubin.total [Mass/volume] in Serum or Plasma0.3-1.0Corey HospitalBlood Cultureon 20-58-8360Arptsroi identified Cx Nom (Bld)NO GROWTH 5 DAYS PERFORMED BY: [facility] [address] [place] [address] PATHOLOGIST MILK HAULER LEVY THOMASON M.D.NormalSt. Vincent'S Medical Center Southside Physician GroupComment on above:Performed By: #### CUBLD ####[facility] [address] [place] [address] USABlood estimated average glucose determination by estimation from glycated hemoglobinOrdered By: Dorene Valenzuela on 10-45-2975Lqnjkib glucose Estimated from glycated hemoglobin (Bld) [Mass/Vol]Glucose mean value [Mass/volume] in Blood Estimated from glycated hemoglobinCorey HospitalC-peptide measurementOrdered By: Dorene Valenzuela on 06-22-2024 C-Peptide3.1 ng/mLNormal1.1-4.4FMansfield HospitalComment on above:C-Peptide reference interval is for fasting patients.Performed at: [facility] - Lab[address] [id number] Director: Pablito Alexander PhD, Phone: [phone] Comment: C-Peptide reference interval is for fasting patients. Performed at: [facility] Lab[address] [id number] Advanced Clinical Specialist: Pablito Alexander PhD, Phone: [phone] FORMED BY:[address] [address] [place], [place] [phone] DIRECTORLEVY THOMASON M.D.Performed By: #### CPEP ####[facility] ,#### CBC, CMP ####[address] [address] USAC-peptide measurement3.1 ng/mL1.1-4.4 Corey HospitalCalcium [Mass/volume] in Serum or PlasmaOrdered By: Dorene Hernandez on 12-25-8578Gwysvkn [Mass/Vol]Calcium [Mass/volume] in Serum or PlasmaLow8.6-10.3FMansfield HospitalCarbon dioxide, total [Moles/volume] in Serum or PlasmaOrdered By: Dorene Valenzuela on 65-34-5982ND8 [Moles/Vol]Carbon dioxide, total [Moles/volume] in Serum or Rrafug89.0-31.0 Corey HospitalChloride [Moles/volume] in Serum or Plasma Ordered By: Dorene Valenzuela on 46-70-4474Wdmtaeno [Moles/Vol]Chloride [Moles/volume] in Serum or EqdvfyGsf46-994FctewehkbCorey Hospital Complete Blood Count Auto Diffon 51-32-9072Cnvdmezsp (Bld) [#/Vol]0.1 10*3/uL Normal0.0-0.2The [facility]cu Health Physician GroupComment on above:Result Comment: PERFORMED BY:[address] [place] [place], [place] [phone] MEDICAL DIRECTORLEVY THOMASON M.D.Performed By: #### CPEP ####[facility] ,#### CBC, CMP ####[place] [address] USABasophils/100 WBC (Bld)1.4 %Normal.The Ecu Health Physician GroupComment on above:Performed By: #### CPEP ####[facility] ,#### CBC, CMP ####[place] [address] USAEosinophils (Bld) [#/Vol]0.1 10*3/uLNormal0.0-0.45 The Ecu Health Physician GroupComment on above:Performed By: #### CPEP ####[facility] ,#### CBC, CMP ####[place] [address] USAEosinophils/100 WBC (Bld)0.9 %Normal.The [facility]cu Health Physician GroupComment on above:Performed By: #### CPEP ####[facility] ,#### CBC, CMP ####[place] [address] USAErythrocyte distribution width (RBC) [Ratio]14.2 % Kbylbk75.0-14.8The [facility] Health Physician GroupComment on above:Performed By: #### CPEP ####[facility] ,#### CBC, CMP ####[place] [address] USAHematocrit (Bld) [Volume fraction]32.6 %Low38.8-50.0The [facility] Health Physician GroupComment on above:Performed By: #### CPEP ####[facility] ,#### CBC, CMP ####[place] [address] USAHemoglobin (Bld) [Mass/Vol]11.1 g/dL Low13.0-17.0The [facility] Health Physician GroupComment on above:Performed By: #### CPEP ####[facility] ,#### CBC, CMP ####[place] [address] USALymphocytes (Bld) [#/Vol]0.6 10*3/uL Low1.00-4.8The [facility] Health Physician GroupComment on above:Performed By: #### CPEP ####[facility] ,#### CBC, CMP ####[place] [address] USALymphocytes/100 WBC (Bld)7.9 %Normal.The [facility] Health Physician GroupComment on above:Performed By: #### CPEP ####[facility] ,#### CBC, CMP ####[place] [address] USAMCH (RBC) [Entitic mass]30.0 skMyryos21.5-35.2The [facility] Health Physician GroupComment on above:Performed By: #### CPEP ####[facility] ,#### CBC, CMP ####[place] [address] USAMCV (RBC) [Entitic vol]87.9 hWRdljor04.5-101The [facility] Health Physician GroupComment on above:Performed By: #### CPEP ####[facility] ,#### CBC, CMP ####[place] [address] USAMean Corpuscular HGB Conc34.1 g/qBOxflko78.5-35.6The [facility] Health Physician GroupComment on above:Performed By: #### CPEP ####[facility] ,#### CBC, CMP ####[place] [address] USAMonocytes (Bld) [#/Vol]0.2 10*3/uLNormal0.0-0.8The [facility] Health Physician GroupComment on above:Performed By: #### CPEP ####[facility] ,#### CBC, CMP ####[place] [address] USAMonocytes/100 WBC (Bld)2.2 %Normal.The [facility] Health Physician GroupComment on above:Performed By: #### CPEP ####[facility] ,#### CBC, CMP ####[place] [address] USANeutrophils (Bld) [#/Vol]6.2 10*3/uLNormal1.8-7.7The [facility] Health Physician GroupComment on above:Performed By: #### CPEP ####[facility] ,#### CBC, CMP ####[place] [address] USANeutrophils/100 WBC (Bld)87.6 %Normal.The [facility] Health Physician GroupComment on above:Performed By: #### CPEP ####[facility] ,#### CBC, CMP ####[place] [address] USANRBC%0.1 /100{WBC}Normal0-0.5The [facility] Health Physician GroupComment on above:Performed By: #### CPEP ####[facility] ,#### CBC, CMP ####[place] [address] USAPlatelet mean volume (Bld) [Entitic vol]8.4 fLNormal6.6-10.1The [facility] Health Physician GroupComment on above:Performed By: #### CPEP ####[facility] ,#### CBC, CMP ####[place] [address] USAPlatelets (Bld) [#/Vol]98 10*3/hWRrm213-983Tkp [facility] Physician GroupComment on above:Performed By: #### CPEP ####[facility] ,#### CBC, CMP ####[address] [address] USARBC (Bld) [#/Vol]3.71 10*6/uLLow3.90-5.60The [facility] Health Physician GroupComment on above:Performed By: #### CPEP ####[facility] ,#### CBC, CMP ####[address] [address] USAWBC (Bld) [#/Vol]7.1 10*3/uLNormal4.1-10.5The [facility] Health Physician GroupComment on above:Performed By: #### CPEP ####[facility] ,#### CBC, CMP ####[address] [address] USAComprehensive Metabolic Panelon 67-54-0253Rhtxdrc [Mass/Vol]3.5 g/dLNormal3.5-5.7The [facility] Health Physician GroupComment on above: Performed By: #### CPEP ####[facility] ,#### CBC, CMP ####[address] [address] USAAlbumin/Globulin [Mass ratio]1.3 {ratio}NormalThe Ecu Health Physician GroupComment on above: Performed By: #### CPEP ####[facility] ,#### CBC, CMP ####[address] [address] USAALP [Catalytic activity/Vol]69 U/XSrbbqb34-027Dnc [facility] Physician GroupComment on above: Performed By: #### CPEP ####[facility] ,#### CBC, CMP ####[address] [address] USAALT [Catalytic activity/Vol]9 U/LNormal7-52The [facility] Health Physician GroupComment on above: Performed By: #### CPEP ####[facility] ,#### CBC, CMP ####[address] [address] USAAnion gap [Moles/Vol] 10.8 mmol/LNormal6.0-15.0The [facility] Health Physician GroupComment on above:Performed By: #### CPEP ####[facility] ,#### CBC, CMP ####[address] [address] USAAST [Catalytic activity/Vol]12 U/OQap63-38Thm [facility] Physician GroupComment on above:Performed By: #### CPEP ####[facility] ,#### CBC, CMP ####[address] [address] USABilirubin [Mass/Vol]0.6 mg/dLNormal0.3-1.0The [facility] Health Physician GroupComment on above:Performed By: #### CPEP ####[facility] ,#### CBC, CMP ####[address] [address] USACalcium [Mass/Vol]7.7 mg/dLLow8.6-10.3The [facility] Health Physician GroupComment on above:Performed By: #### CPEP ####[facility] ,#### CBC, CMP ####[address] [address] USAChloride [Moles/Vol]91 mmol/UYox92-785Vzg [facility] Physician GroupComment on above:Performed By: #### CPEP ####[facility] ,#### CBC, CMP ####[address] [address] USACO2 [Moles/Vol]27.6 mmol/LZaylld50.0-31.0The [facility] Physician [facility] River GulfportComment on above:Performed By: #### CPEP ####[facility] ,#### CBC, CMP ####[place] [address] USACreatinine [Mass/Vol]4.14 mg/dLHigh0.70-1.30The [facility] Health Physician GroupComment on above:Performed By: #### CPEP ####[facility] ,#### CBC, CMP ####[place] [address] USACreatinine Clr Calc Qqmravpt73.94NoSampson Regional Medical Center Physician [facility] River GulfportComment on above:Result Comment: PERFORMED BY:[address] [place], [place] [phone] MEDICAL DIRECTORLEVY THOMASON M.D.Performed By: #### CPEP ####[facility] ,#### CBC, CMP ####[place] [address] USAGFR/1.73 sq M.predicted MDRD (S/P/Bld) [Vol rate/Area]17.850 mL/min/{1.73_m2} NormalWiser Hospital For Women And InfantsComment on above:Performed By: #### CPEP ####[facility] ,#### CBC, CMP ####[place] [address] USAGlobulin (S) [Mass/Vol]2.8 g/dLMayo Clinic HospitalComment on above:Performed By: #### CPEP ####[facility] ,#### CBC, CMP ####[place] [address] USAGlucose [Mass/Vol]452 mg/zUSyqy64-230Iep [place] Physician [facility] GulfportComment on above:Result Comment: Random Glucose Reference Range is dependent on time and content of last meal. Glucose of more than 200 mg/dL in a nonstressed, ambulatory subject supports the diagnosis of Diabetes Mellitus. ADA recommended reference rangePerformed By: #### CPEP ####[facility] ,#### CBC, CMP ####[place] [address] USAPotassium [Moles/Vol]3.4 mmol/LLow3.5-5.1The [facility] Health Physician GroupComment on above:Performed By: #### CPEP ####[facility] ,#### CBC, CMP ####[place] [address] USAProtein [Mass/Vol]6.3 g/dLLow6.4-8.9The [facility] Health Physician GroupComment on above:Performed By: #### CPEP ####[facility] ,#### CBC, CMP ####[place] [address] USASodium [Moles/Vol]126 mmol/OKqm846-991Ouy [facility] Health Physician GroupComment on above:Performed By: #### CPEP ####[facility] ,#### CBC, CMP ####[place] [address] USAUrea nitrogen [Mass/Vol]27 mg/dLHigh7-25The [facility] Health Physician GroupComment on above:Performed By: #### CPEP ####[facility] ,#### CBC, CMP ####[place] [address] USACreatinine [Mass/volume] in Serum or PlasmaOrdered By: Dorene Valenzuela on 78-60-3415Jjmroidktw [Mass/Vol]Creatinine [Mass/volume] in Serum or PlasmaHigh0.70-1.30Corey HospitalEosinophils Auto (Bld) [#/Vol]Ordered By: Dorene Valenzuela on 95-06-9262Omnanmeglho (Bld) [#/Vol] Automated eosinophil count0.0-0.45[facility] Eosinophils/100 WBC Auto (Bld)Ordered By: Dorene Valenzuela on 06-22-2024 Eosinophils/100 WBC (Bld)Automated eosinophil %.Corey HospitalEosinophils/100 WBC Auto (Bld)on 16-64-7078Idgcknhukaa/100 WBC (Bld) Automated eosinophil %0.9-7.0Corey HospitalErythrocyte distribution width Auto (RBC) [Ratio]Ordered By: Dorene Valenzuela on 06-22-2024 Erythrocyte distribution width (RBC) [Ratio]Erythrocyte distribution width [Ratio] by Automated count12.0-14.8Corey HospitalErythrocyte distribution width Auto (RBC) [Ratio]on 43-28-1761Ngkqakaqoex distribution width (RBC) [Ratio]Erythrocyte distribution width [Ratio] by Automated count11.0-15.0 [facility] HospitalEstimated glomerular filtration rate (GFR) non- Americanon 11-39-9749ALG/1.73 sq M.predicted among non-blacks MDRD (S/P/Bld) [Vol rate/Area]Estimated glomerular filtration rate (GFR) non- AmericanLow>=60 mL/min/1.73m 2FMansfield HospitalGlobulin Calc (S) [Mass/Vol]Ordered By: Dorene Valenzuela on 86-46-7109Uvcmuhbh (S) [Mass/Vol]Serum globulin measurement by calculation (mass/volume)Corey HospitalGlobulin Calc (S) [Mass/Vol]on 56-94-1324Yqssxmhi (S) [Mass/Vol]Serum globulin measurement by calculation (mass/volume)[facility] HospitalGlucose Glucometer (BldC) [Mass/Vol]Ordered By: Dorene Valenzuela on [id number] [Mass/Vol]Capillary blood glucose measurement by glucometer (mass/volume)[facility] HospitalComment on above:Random Glucose Reference Range is dependent on time and content of last meal. Glucose of more than 200 mg/dL in a nonstressed, ambulatory subject supports the diagnosis of Diabetes Mellitus.Glucose Poct Glucometerson [phone] [Mass/Vol]285 mg/dLNoSampson Regional Medical Center Physician GroupComment on above:Result Comment: Random Glucose Reference Range is dependent on time and content of last meal. Glucose of more than 200 mg/dL in a nonstressed, ambulatory subject supports the diagnosis of Diabetes Mellitus.PERFORMED BY:[facility] [place], [place] [phone] MEDICAL DIRECTORLEVY THOMASON M.D.Performed By: #### GLULS ####Point of Care testing, Glucose [Mass/volume] in Serum or PlasmaOrdered By: Dorene Valenzuela on 06-22-2024 Glucose [Mass/Vol]Glucose [Mass/volume] in Serum or AfukdxFduo50-568NiygkmcjgCorey HospitalComment on above:ADA recommended reference rangeRandom Glucose Reference Range is dependent on time and content of last meal. Glucose of more than 200 mg/dL in a nonstressed, ambulatory subject supports the diagnosisof Diabetes Mellitus.Hematocrit Auto (Bld) [Volume fraction]Ordered By: Dorene Valenzuela on 90-94-0534Azbhpsdrjs (Bld) [Volume fraction]Hematocrit [Volume Fraction] of Blood by Automated dkghbNpp46.8-50.0Corey HospitalHematocrit Auto (Bld) [Volume fraction]on 97-05-7349Ihcwkbttaj (Bld) [Volume fraction]Hematocrit [Volume Fraction] of Blood by Automated countLow 42.0-54.0Corey HospitalHemoglobin A1c/Hemoglobin.total in BloodOrdered By: Dorene Valenzuela on 04-29-3385GkP2f (Bld) [Mass fraction] Hemoglobin A1c percentageHigh4.3-5.6FMansfield HospitalComment on above:Increased risk for diabetes: 5.7 - 6.4diabetes: >6.4glycemic control for adults with diabetes: <7.0Hemoglobin [Mass/volume] in BloodOrdered By: Dorene Valenzuela on 75-82-0362Jtxcifhoav (Bld) [Mass/Vol]Hemoglobin [Mass/volume] in EaxmfNrn51.0-17.0Corey HospitalHemoglobin [Mass/volume] in Bloodon 74-21-6841Kgsrkxajtm (Bld) [Mass/Vol]Hemoglobin [Mass/volume] in Blood Low14.0-18.0Corey HospitalLaboratory - Chemistry and Chemistry - challengeon 76-62-3933Nggqmqwsx Ql (U)NegativeNEGATIVECorey HospitalGlucose (U) [Mass/Vol]500 mg/dLAbnormalNEGATIVECorey HospitalKetones Ql (U)NegativeNEGATIVECorey HospitalpH (U)7.5 [pH]5.0-9.0[facility] Hospitalpecific gravity (U) [Rel density]1.0201.005-1.025Corey HospitalUrobilinogen Qn (U)0.2 {Tawana'U}/dL0.2-1.0Corey HospitalLactate [Moles/Vol] 0.8 mmol/L0.4-2.0Corey HospitalAlbumin [Mass/Vol]3.7 g/dL 3.4-5.0Corey HospitalALP [Catalytic activity/Vol]100 U/L 46-116Corey HospitalALT [Catalytic activity/Vol]11 U/LLow 16-63Corey HospitalAST [Catalytic activity/Vol]16 U/L15-37 [facility] HospitalBilirubin [Mass/Vol]0.6 mg/dL0.2-1.0[facility]y HospitalCalcium [Mass/Vol]9.4 mg/dL8.5-10.1FMansfield HospitalChloride [Moles/Vol]102 mmol/M10-410EinisikkdCorey HospitalCO2 [Moles/Vol]22.7 mmol/L21.0-32.0[facility] Creatinine [Mass/Vol]8.68 mg/dLCritically high0.70-1.30Corey HospitalComment on above:RESULTS CALLED TO JEREL MATAMOROS, RNGFR/1.73 sq M.predicted MDRD (S/P/Bld) [Vol rate/Area]8 mL/min/{1.73_m2}Low>=60 mL/min/1.73m 2FMansfield HospitalGlucose [Mass/Vol]127 mg/fVYnnr97-987JidahjgexCorey HospitalLipase [Catalytic activity/Vol]12.0 U/LLow16.0-77.0 Corey HospitalMagnesium [Mass/Vol]2.3 mg/dL1.8-2.4FMansfield HospitalPotassium [Moles/Vol]4.4 mmol/L3.5-5.1FMansfield HospitalProtein [Mass/Vol]7.9 g/dL6.4-8.2FMansfield Hospital Sodium [Moles/Vol]142 mmol/X246-681WrktcyixqCorey HospitalUrea nitrogen [Mass/Vol]63.0 mg/dLHigh7.0-18.0Corey HospitalUrea nitrogen/Creatinine [Mass ratio]7.3 mg/mgCorey Hospital Laboratory - Hematology and Cell countson 95-11-6174Bowktaik granulocytes/100 WBC (Bld)0.1 %0.0-0.5FMansfield HospitalLaboratory - Microbiology and Antimicrobial susceptibilityOrdered By: Dorene Valenzuela on 46-46-0887Slinxtlk identified Cx Nom (Bld)NO GROWTH 5 DAYSCorey Hospital Laboratory - Specimen informationon 34-96-4416Rekhoflsce (U)CLEARCLEARFMansfield HospitalColor (U)LT. YELLOWYELLOWCorey HospitalLaboratory - Urinalysison 21-03-8809Ybudrqbmi esterase Test strip Ql (U) NegativeNEGATIVECorey HospitalMucus Ql (Urine sed)SMALL AbnormalNONE SEENCorey HospitalNitrite Ql (U)NegativeNEGATIVE Corey HospitalProtein Ql (U)>=300 mg/dLAbnormalNEG/TRACE Corey HospitalLeukocytes [#/volume] corrected for nucleated erythrocytes in Blood by Automated counOrdered By: Dorene Valenzuela on 06-22-2024 WBC corrected for nucl RBC Auto (Bld) [#/Vol]Leukocytes [#/volume] corrected for nucleated erythrocytes in Blood by Automated coun4.1-10.5FMansfield HospitalLeukocytes [#/volume] corrected for nucleated erythrocytes in Blood by Automated counon 49-38-3024BKS corrected for nucl RBC Auto (Bld) [#/Vol]Leukocytes [#/volume] corrected for nucleated erythrocytes in Blood by Automated coun4.0-11.0Corey HospitalLymphocytes Auto (Bld) [#/Vol]Ordered By: Dorene Valenzuela on 50-25-6111Kyovwpujbym (Bld) [#/Vol] Lymphocytes [#/volume] in Blood by Automated countLow1.00-4.8Corey HospitalLymphocytes Auto (Bld) [#/Vol]on 91-73-1684Ijdhwylishl (Bld) [#/Vol]Lymphocytes [#/volume] in Blood by Automated countLow1.2-3.8Corey HospitalLymphocytes/100 WBC Auto (Bld)Ordered By: Dorene Valenzuela on 82-13-5210Enwevnwivqn/100 WBC (Bld)Lymphocytes/100 leukocytes in Blood by Automated count.Corey HospitalLymphocytes/100 WBC Auto (Bld) on 91-99-7757Jtlhagqbsmp/100 WBC (Bld)Lymphocytes/100 leukocytes in Blood by Automated raeslUlw81.5-60.0[facility] Auto (RBC) [Entitic mass]Ordered By: Dorene Valenzuela on 72-87-7385AEZ (RBC) [Entitic mass]MCH [Entitic mass] by Automated count27.5-35.2FSelect Medical [facility] Clinic Rehabilitation [facility], [facility] Auto (RBC) [Entitic mass]on 58-45-3750RRS (RBC) [Entitic mass]MCH [Entitic mass] by Automated count25.9-34.0[facility] Auto (RBC) [Mass/Vol]Ordered By: Dorene Valenzuela on 08-67-9608KGTX (RBC) [Mass/Vol]MCHC [Mass/volume] by Automated count32.5-35.6FACMC [facility] Auto (RBC) [Mass/Vol]on 83-88-2219MJFF (RBC) [Mass/Vol]MCHC [Mass/volume] by Automated count29.9-35.2FOhioHealth Grady Memorial Hospital Auto (RBC) [Entitic vol]Ordered By: Dorene Valenzuela on 90-72-8362LBM (RBC) [Entitic vol]MCV [Entitic volume] by Automated count83.5-101Corey HospitalMCV Auto (RBC) [Entitic vol]on 02-99-1225TNE (RBC) [Entitic vol]MCV [Entitic volume] by Automated count80.0-94.0Corey HospitalMonocytes Auto (Bld) [#/Vol]Ordered By: Dorene Valenzuela on 51-00-6355Ntnnmrdal (Bld) [#/Vol]Automated blood monocyte count0.0-0.8Corey HospitalMonocytes Auto (Bld) [#/Vol]on 55-88-1959Dyipuhgzv (Bld) [#/Vol]Automated blood monocyte countLow 0.3-0.8Corey HospitalMonocytes/100 WBC Auto (Bld)Ordered By: Dorene Valenzuela on 98-59-4612Exexpcepk/100 WBC (Bld)Automated monocyte %.Corey HospitalMonocytes/100 WBC Auto (Bld)on 05-21-0796Enqjvrsem/100 WBC (Bld)Automated monocyte %1.7-12.0[facility] Neutrophils Auto (Bld) [#/Vol]Ordered By: Dorene Valenzuela on 61-60-2192Mnqithdledb (Bld) [#/Vol]Neutrophils [#/volume] in Blood by Automated count1.8-7.7FMansfield HospitalNeutrophils Auto (Bld) [#/Vol]on 28-05-4719Irdklcetahb (Bld) [#/Vol]Neutrophils [#/volume] in Blood by Automated count1.4-6.5FMansfield HospitalNeutrophils/100 WBC Auto (Bld)Ordered By: Dorene Valenzuela on 84-40-4032Evyhbffulyt/100 WBC (Bld)Automated neutrophil %.Corey HospitalNeutrophils/100 WBC Auto (Bld)on 20-19-7322Nczpntiqunl/100 WBC (Bld)Automated neutrophil %High43.0-75.0Corey HospitalNo Panel InformationOrdered By: Dorene Valenzuela on 52-07-8855Uudkjvvxg GFR (CKD-EPI) 17.850 mL/MinCorey HospitalPharmacy Creatinine Clearance (Chem24.94[facility] Hospital17.850 mL/MinCorey Hospital24.94Corey HospitalNO GROWTH 5 DAYSCorey HospitalNo Panel Informationon 46-69-8737Eckyu BacteriaTRACE #/HPFAbnormalNONE SEENCorey HospitalUrine Microscopic Review Madison HealthUrine Occult BloodSMALLAbnormalNEGATIVE Corey HospitalUrine Other CastsNONE SEEN #/LPFNONE SEEN Corey HospitalUrine Other CrystalsNone Seen #/HPFNone Seen Corey HospitalUrine RBC5-10 #/HPFAbnormal0-2FMansfield HospitalUrine Squamous Epithelial CellsRARE #/LPFNONE/[facility] HospitalUrine WBC0-2 #/HPFAbnormalNONE SEENCorey HospitalNONE SEEN #/LPFNONE SEENCorey Hospital YESCorey HospitalNone Seen #/HPFNone SeenCorey HospitalNegativeNEGUniversity Hospitals Parma Medical CenterTRACE #/HPF AbnormalNONE SEENMagruder Memorial HospitalMALLAbnormalNONE SEEN Corey HospitalCLEARCLEARCorey Hospital5-10 #/HPFAbnormal0-2FMansfield HospitalLT. YELLOWYELLOWCorey HospitalRARE #/LPFNONE/[facility]500 mg/dLAbnormalNEGATIVECorey Hospital0-2 #/HPFAbnormalNONE SEEN [facility]7.55.0-9.0[facility] >=300 mg/dLAbnormalNEG/TRACECorey Hospital1.0201.005-1.025 [facility]0.2 EU/dL0.2-1.0[facility]0.8 mmol/L0.4-2.0Corey HospitalEosinophils # (Auto)0.3 10 3/uL0.0-0.7FMansfield HospitalEthyl Alcohol Level<3 mg/dL Corey HospitalComment on above:NOTE: 80 mg/dl is the legal limit for a blood alcohol levelImmature Granulocyte # (Auto)0.01 10 3/uL 0.00-0.03Corey HospitalPhosphorus Level5.4 mg/dLHigh2.6-4.7 [facility] HospitalTroponin I High Xfchwipjcrg74.4 pg/mL4.0-76.1 Corey HospitalComment on above:CUT-OFF POINTS HAVE BEEN ESTABLISHED BASED ON THE FOURTHUNIVERSAL DEFINITION OF MYOCARDIAL INFARCTION. THE UPPERREFERENCE LIMIT (URL) OF TROPONIN, DEFINED THE 99THPERCENTILE OF cTnI DISTRIBUTION IN A REFERENCE POPULATION,HAS BEEN CONFIRMED THE DECISION THRESHOLD FOR MIDIAGNOSIS.99TH PERCENTILE = 76.2 PG/MLNOTE: HIGH-SENSITIVITY TROPONIN ASSAY IS NOT INTENDED TO BEUSED IN ISOLATION BUT SHOULD BE INTERPRETED IN CONJUNCTIONWITH OTHER DIAGNOSTIC AND CLINICAL INFORMATION.Venous Blood Partial Pressure CO252.6 mm[Hg]High40.0-52.0[facility] Venous Blood pH7.804Ckq7.330-7.430[facility]52.6 mm[Hg] High40.0-52.0[facility]5.4 mg/dLHigh2.6-4.7FMansfield Hospital<3 mg/dLCorey Hospital12.0 U/LLow 16.0-77.0[facility]50.4 pg/mL4.0-76.1FMansfield Hospital2.3 mg/dL1.8-2.4FMansfield Hospital7.259Low 7.330-7.430[facility]0.3 10 3/uL0.0-0.7FMansfield Hospital3.7 g/dL3.4-5.0[facility]100 U/L46-116 [facility]11 U/LKlw17-06DgxazwwsoCorey Hospital 16 U/U13-80GovdfigsfCorey Hospital0.01 10 3/uL0.00-0.03[facility]7.3FMansfield Hospital0.1 %0.0-0.5FMansfield Hospital63.0 mg/dLHigh7.0-18.0[facility] 9.4 mg/dL8.5-10.1FMansfield Hospital102 mmol/S49-313AxtruwczuCorey Hospital22.7 mmol/L21.0-32.0[facility]8.68 mg/dLCritically high0.70-1.30[facility]8Low>=60 mL/min/1.73m 2FMansfield Hospital127 mg/kZOjjf69-315SygwtiphkCorey Hospital4.4 mmol/L3.5-5.1FMansfield Hospital142 mmol/V829-588UvgvzwbbiCorey Hospital0.6 mg/dL0.2-1.0[facility]7.9 g/dL6.4-8.2FMansfield HospitalNucleated erythrocytes [Presence] in Blood by Automated countOrdered By: Dorene Valenzuela on 03-19-7753Dksysrflx RBC Auto Ql (Bld)Nucleated erythrocytes [Presence] in Blood by Automated count0-0.5FMansfield HospitalPlatelet mean volume Auto (Bld) [Entitic vol]Ordered By: Dorene Valenzuela on 70-55-1564Msgrujmw mean volume (Bld) [Entitic vol]Platelet mean volume [Entitic volume] in Blood by Automated count6.6-10.1FMansfield HospitalPlatelet mean volume Auto (Bld) [Entitic vol]on 28-07-3935Lfmycwru mean volume (Bld) [Entitic vol] Platelet mean volume [Entitic volume] in Blood by Automated count9.5-13.5 Corey HospitalPlatelets Auto (Bld) [#/Vol]Ordered By: Dorene Valenzuela on 72-67-3683Qtfnoemon (Bld) [#/Vol]Platelets [#/volume] in Blood by Automated xjdlgWzb561-263BdbwzmarjCorey HospitalPlatelets Auto (Bld) [#/Vol]on 49-72-1739Ublbtisfe (Bld) [#/Vol]Platelets [#/volume] in Blood by Automated pifmiZou675-343NnghdnksmCorey HospitalPotassium [Moles/volume] in Serum or PlasmaOrdered By: Dorene Valenzuela on 06-22-2024 Potassium [Moles/Vol]Potassium [Moles/volume] in Serum or PlasmaLow3.5-5.1 [facility] HospitalProtein [Mass/volume] in Serum or PlasmaOrdered By: Dorene Valenzuela on 59-56-6196Whuelhs [Mass/Vol]Protein [Mass/volume] in Serum or PlasmaLow6.4-8.9[facility] Auto (Bld) [#/Vol] Ordered By: Dorene Valenzuela on 71-91-0489FGC (Bld) [#/Vol]Erythrocytes [#/volume] in Blood by Automated countLow3.90-5.60[facility] Auto (Bld) [#/Vol]on 02-02-1717QMG (Bld) [#/Vol]Erythrocytes [#/volume] in Blood by Automated countLow4.70-6.10[facility] Hospitalerum or plasma albumin/globulin mass ratioOrdered By: Dorene Valenzuela on 06-22-2024 Albumin/Globulin [Mass ratio]Serum or plasma albumin/globulin mass ratio [facility] Hospitalerum or plasma albumin/globulin mass ratioon 41-98-8578Lryaqjn/Globulin [Mass ratio]Serum or plasma albumin/globulin mass ratioMagruder Memorial Hospitalerum or plasma anion gap determination Ordered By: Dorene Valenzuela on 34-36-8220Bwwzg gap [Moles/Vol]Serum or plasma anion gap determination6.0-15.0[facility] Hospitalerum or plasma anion gap determinationon 49-11-4521Fsqvh gap [Moles/Vol]Serum or plasma anion gap determinationMagruder Memorial Hospitalodium [Moles/volume] in Serum or PlasmaOrdered By: Dorene Valenzuela on 67-72-8210Kjntnk [Moles/Vol]Sodium [Moles/volume] in Serum or RadzlqShc435-291PawnlkqzcCorey HospitalUrea nitrogen [Mass/volume] in Serum or PlasmaOrdered By: Dorene Valenzuela on 82-24-5211Vxdj nitrogen [Mass/Vol]Urea nitrogen [Mass/volume] in Serum or Plasma High7-25Corey HospitalWBC Auto (Bld) [#/Vol]Ordered By: Dorene Valenzuela on 42-13-4041FLR (Bld) [#/Vol]Leukocytes [#/volume] in Blood by Automated count4.1-10.5FMansfield HospitalBasophils Auto (Bld) [#/Vol]Ordered By: Kim Renteria on 79-47-6432Whvacsyru (Bld) [#/Vol]0.1 10*3/uL 0.0-0.2FMansfield HospitalBasophils/100 WBC Auto (Bld)Ordered By: Kim Renteria on 44-89-7046Akfonkpun/100 WBC (Bld)0.6 %.Corey HospitalCalcium [Mass/volume] in Serum or PlasmaOrdered By: Kim Renteria on 00-24-8261Kqrndym [Mass/Vol]8.7 mg/dL8.6-10.3FMansfield HospitalCarbon dioxide, total [Moles/volume] in Serum or PlasmaOrdered By: Kim Renteria on 50-91-8414MA4 [Moles/Vol]28.2 mmol/L21.0-31.0Corey HospitalChloride [Moles/volume] in Serum or PlasmaOrdered By: Kim Renteria on 22-76-8485Kprdveuq [Moles/Vol]94 mmol/UEpv92-096KemnelfumCorey HospitalCreatinine [Mass/volume] in Serum or PlasmaOrdered By: Kim Renteria on 31-30-8779Ezqxysppqc [Mass/Vol]4.66 mg/dLHigh0.70-1.30Corey HospitalComment on above:Delta: 6.87 on 03/09/24-0555Eosinophils Auto (Bld) [#/Vol]Ordered By: Kim Renteria on 56-53-0167Rmpomzujonu (Bld) [#/Vol]0.1 10*3/uL0.0-0.45Corey HospitalEosinophils/100 WBC Auto (Bld)Ordered By: Kim Renteria on 74-00-8678Aotvstpzmqg/100 WBC (Bld)0.9 %. Corey HospitalErythrocyte distribution width Auto (RBC) [Ratio]Ordered By: Kim Renteria on 07-88-0280Kqdibjmqamc distribution width (RBC) [Ratio]15.4 %High12.0-14.8Corey HospitalGlucose Glucometer (BldC) [Mass/Vol]Ordered By: Kim Renteria on 98-58-5146Spykdjj [Mass/Vol]277 mg/dLCorey HospitalComment on above:Random Glucose Reference Range is dependent on time and content of last meal. Glucose of more than 200 mg/dL in a nonstressed, ambulatory subject supports the diagnosis of Diabetes Mellitus.Glucose [Mass/volume] in Serum or PlasmaOrdered By: Kim Renteria on 35-81-0044Oaebszd [Mass/Vol]120 mg/lQXxpw66-875QuaascabiCorey HospitalComment on above:Delta: 973 on 03/09/24-6ADA recommended reference rangeRandom Glucose Reference Range is dependent on time and content of last meal. Glucose of more than 200 mg/dL in a nonstressed, ambulatory subject supports the diagnosis of Diabetes Mellitus.Hematocrit Auto (Bld) [Volume fraction]Ordered By: Kim Renteria on 53-00-5783Xhhkvdgqfu (Bld) [Volume fraction]32.6 %Low38.8-50.0Corey HospitalHemoglobin [Mass/volume] in BloodOrdered By: Kim Renteria on 11-68-5087Uawgjrpqwe (Bld) [Mass/Vol]11.2 g/dLLow13.0-17.0Corey HospitalLeukocytes [#/volume] corrected for nucleated erythrocytes in Blood by Automated coun Ordered By: Kim Renteria on 87-28-7046HHI corrected for nucl RBC Auto (Bld) [#/Vol]15.4 10*3/uLHigh4.1-10.5FMansfield HospitalLymphocytes Auto (Bld) [#/Vol]Ordered By: Kim Renteria on 69-52-6674Wvazyzwcumh (Bld) [#/Vol] 1.8 10*3/uL1.00-4.8Corey HospitalLymphocytes/100 WBC Auto (Bld)Ordered By: Kim Renteria on 04-02-1356Uwxsrbjovpm/100 WBC (Bld)11.5 %. [facility]H Auto (RBC) [Entitic mass]Ordered By: Kim Renteria on 84-60-7480QZE (RBC) [Entitic mass]30.7 pg27.5-35.2FMansfield HospitalMCHC Auto (RBC) [Mass/Vol]Ordered By: iKm Renteria on 03-10-2024 MCHC (RBC) [Mass/Vol]34.4 g/dL32.5-35.6FMansfield HospitalMCV Auto (RBC) [Entitic vol]Ordered By: Kim Renteria on 41-81-4624DZD (RBC) [Entitic vol]89.2 fL83.5-101Corey HospitalMonocytes Auto (Bld) [#/Vol] Ordered By: Kim Renteria on 49-19-1272Kxzrllljl (Bld) [#/Vol]0.8 10*3/uL0.0-0.8 Corey HospitalMonocytes/100 WBC Auto (Bld)Ordered By: Kim Renteria on 29-94-2503Zoohakghi/100 WBC (Bld)5.2 %.Corey HospitalNeutrophils Auto (Bld) [#/Vol]Ordered By: Kim Renteria on 03-10-2024 Neutrophils (Bld) [#/Vol]12.6 10*3/uLHigh1.8-7.7FMansfield HospitalNeutrophils/100 WBC Auto (Bld)Ordered By: Kim Renteria on 03-10-2024 Neutrophils/100 WBC (Bld)81.8 %.[facility]y HospitalNo Panel InformationOrdered By: Kim Renteria on 72-64-8867Qstiznz Glucose CommentGlu2: cleaned meterCorey HospitalEstimated GFR (CKD-EPI)15.487 mL/MinCorey HospitalPharmacy Creatinine Clearance (Chem23.21 Corey HospitalNucleated erythrocytes [Presence] in Blood by Automated countOrdered By: Kim Renteria on 61-43-4657Uhsuantnm RBC Auto Ql (Bld)0.0 /100{WBC}0-0.5FMansfield HospitalPlatelet mean volume Auto (Bld) [Entitic vol]Ordered By: Kim Renteria on 59-73-5824Fqfjwpmt mean volume (Bld) [Entitic vol]8.7 fL6.6-10.1FMansfield Hospital Platelets Auto (Bld) [#/Vol]Ordered By: Kim Renteria on 15-85-8625Pgdazartm (Bld) [#/Vol]193 10*3/kI259-655ZnbumjfayCorey HospitalPotassium [Moles/volume] in Serum or PlasmaOrdered By: Kim Renteria on 03-10-2024 Potassium [Moles/Vol]4.1 mmol/L3.5-5.1FMansfield HospitalComment on above:Delta: 5.7 on 03/09/24-55RBC Auto (Bld) [#/Vol]Ordered By: Kim Renteria on 05-37-3430ZNK (Bld) [#/Vol]3.65 10*6/uLLow3.90-5.60Mag[facility] Hospitalerum or plasma anion gap determinationOrdered By: Kim Renteria on 51-10-2610Guere gap [Moles/Vol]13.9 mmol/L6.0-15.0[facility] Hospitalodium [Moles/volume] in Serum or PlasmaOrdered By: Kim Renteria on 42-73-4091Xsstnj [Moles/Vol]132 mmol/APsq639-324OorzxbulmCorey HospitalComment on above:Delta: 116 on 03/09/24Urea nitrogen [Mass/volume] in Serum or PlasmaOrdered By: Kim Renteria on 06-59-6721Qdbk nitrogen [Mass/Vol] 37 mg/dLHigh7-25Corey HospitalComment on above:Delta: 68 on 03/09/24-55WBC Auto (Bld) [#/Vol]Ordered By: Kim Renteria on 13-05-3442NZU (Bld) [#/Vol]15.4 10*3/uLHigh4.1-10.5FMansfield HospitalAlanine aminotransferase [Enzymatic activity/volume] in Serum or PlasmaOrdered By: Romain Roy on 17-56-0937GYL [Catalytic activity/Vol]8 U/L7-52Corey HospitalAlbumin [Mass/volume] in Serum or Plasma by Bromocresol green (BCG) dye binding methoOrdered By: Romain Roy on 43-73-3741Anwgrlt BCG dye [Mass/Vol]4.0 g/dL3.5-5.7FMansfield HospitalAlkaline phosphatase [Enzymatic activity/volume] in Serum or PlasmaOrdered By: Romain Roy on 06-13-7994IPN [Catalytic activity/Vol]73 U/J64-187KvwglrsxkCorey HospitalAspartate aminotransferase [Enzymatic activity/volume] in Serum or PlasmaOrdered By: Romain Roy on 54-21-5518RBA [Catalytic activity/Vol]11 U/ZXvu30-99EtwppadynCorey HospitalBacteria [Presence] in Urine by AutomatedOrdered By: Hector Mann on 12-40-1148Vfjaspks Auto Ql (U)Rare [HPF] None SeenCorey HospitalBacterial blood cultureOrdered By: Hector Mann on 80-89-9979Tjgbvjuz identified Cx Nom (Bld)NO GROWTH 5 DAYS Corey HospitalBacteria identified Cx Nom (Bld)NO GROWTH 5 DAYSCorey HospitalBasophils Auto (Bld) [#/Vol]Ordered By: Romain Roy on 05-24-5269Vqmiivhzi (Bld) [#/Vol]0.1 10*3/uL0.0-0.2FMansfield HospitalBasophils/100 WBC Auto (Bld)Ordered By: Romain Roy on 25-56-4713Ilbmvlxcu/100 WBC (Bld)0.8 %.Corey HospitalBeta hydroxybutyrate [Moles/volume] in Serum or PlasmaOrdered By: Hector Mann on 37-53-1793Snov hydroxybutyrate [Moles/Vol]0.27 mmol/L0.02-0.27Corey HospitalBilirubin Test strip Ql (U)Ordered By: Hector Mann on 25-06-2118Qmbikoxxj Ql (U)NegativeNegativeCorey Hospital Bilirubin.total [Mass/volume] in Serum or PlasmaOrdered By: Romain Roy on 34-29-5357Anilnnmnq [Mass/Vol]0.7 mg/dL0.3-1.0[facility] COVID CepheidOrdered By: Romain Roy on 57-30-9521EQLP-CoV-2 (COVID-19) Ab IA QlNegativeNegativeCorey HospitalComment on above:This is a duplicate Cep[employer] Xpert Xpress CoV-2/Flu/RSV Plus RNA by RT-PCR result to be used for statistical tracking purpose only.SARS-CoV-2 (COVID-19) RNA HAO+probe Ql (Unsp spec)Corey HospitalCalcium [Mass/volume] in Serum or PlasmaOrdered By: Romain Roy on 99-75-7059Qespxzj [Mass/Vol]8.9 mg/dL 8.6-10.3FMansfield HospitalCarbon dioxide, total [Moles/volume] in Serum or PlasmaOrdered By: Romain Roy on 40-96-8574VL3 [Moles/Vol]20.2 mmol/LLow21.0-31.0Corey HospitalChloride [Moles/volume] in Serum or PlasmaOrdered By: Romain Roy on 27-19-3497Ntbilujl [Moles/Vol]81 mmol/TOuq69-774LskogijazCorey HospitalColor Auto (U)Ordered By: Hector Mann on 18-91-9552Gtixe (U)Light-yellowYellowCorey HospitalCreatinine [Mass/volume] in Serum or PlasmaOrdered By: Romain Roy on 89-13-8700Btomxechsl [Mass/Vol]6.87 mg/dLHigh0.70-1.30Corey HospitalEosinophils Auto (Bld) [#/Vol]Ordered By: Romain Roy on 15-78-3146Dnyaknhkmgt (Bld) [#/Vol]0.0 10*3/uL0.0-0.45Corey HospitalEosinophils/100 WBC Auto (Bld)Ordered By: Romain Roy on 03-09-2024 Eosinophils/100 WBC (Bld)0.2 %.[facility]y HospitalEpithelial cells.squamous [#/area] in Urine sediment by Automated countOrdered By: Hector Mann on 15-27-1143Shsfxkqrhs cells.squamous Auto (Urine sed) [#/Area]N/A [facility]y HospitalErythrocyte distribution width Auto (RBC) [Ratio]Ordered By: Romain Roy on 31-68-5710Mbootagcrft distribution width (RBC) [Ratio]15.4 %High12.0-14.8Corey HospitalErythrocytes [#/area] in Urine sediment by Automated countOrdered By: Hector Mann on 01-24-4033PWZ Auto (Urine sed) [#/Area]1-2 [HPF]0-4FMansfield HospitalGlobulin Calc (S) [Mass/Vol]Ordered By: Romain Roy on 03-09-2024 Globulin (S) [Mass/Vol]3.2 g/dLCorey HospitalGlucose Glucometer (BldC) [Mass/Vol]Ordered By: Kim Renteria on 78-92-7799Nvukjiw [Mass/Vol]561 mg/xRQhij49-096EnbivtetuCorey HospitalGlucose [Mass/volume] in Serum or PlasmaOrdered By: Romain Roy on 03-09-2024 Glucose [Mass/Vol]1006 mg/aUTypw69-587AwrhjthlhCorey HospitalComment on above:ADA recommended reference rangeRandom Glucose Reference Range is dependent on time and content of last meal. Glucose of more than 200 mg/dL in a nonstressed, ambulatory subject supports the diagnosisof Diabetes Mellitus. Glucose [Mass/volume] in Urine by Test stripOrdered By: eHctor Mann on 19-05-8631Cgowxbw Test strip (U) [Mass/Vol]>=1000 mg/dLHighNormalCorey HospitalHematocrit Auto (Bld) [Volume fraction]Ordered By: Romain Roy on 64-17-8345Vaimobwbup (Bld) [Volume fraction]33.6 %Low 38.8-50.0Corey HospitalHemoglobin Test strip Ql (U)Ordered By: Hector Mann on 93-78-3466Tdkolnyqln Ql (U)1+HighNegativeCorey HospitalHemoglobin [Mass/volume] in BloodOrdered By: Romain Roy on 15-09-1112Qpfhmqzzfb (Bld) [Mass/Vol]10.9 g/dLLow13.0-17.0Corey HospitalHyaline casts [#/area] in Urine sediment by Automated countOrdered By: Hector Mann on 98-31-5737Xtbhoaw casts Auto (Urine sed) [#/Area]None [LPF]0-8Corey HospitalKetones Test strip Ql (U)Ordered By: Hector Mann on 75-83-5427Eiklpjb Ql (U)NegativeNegativeCorey HospitalLaboratory - Chemistry and Chemistry - challengeOrdered By: Romain Roy on 42-29-8652TY7 [Moles/Vol]21.5 mmol/LLow23.0-27.0Corey HospitalHCO3 (Bld) [Moles/Vol]20.3 mmol/LLow23.0-29.0Corey HospitalLactate [Moles/volume] in Serum or PlasmaOrdered By: Hector Mann on 89-58-7352Bfapjor [Moles/Vol]0.8 mmol/L0.5-2.2FMansfield HospitalLeukocyte esterase [Presence] in Urine by Test stripOrdered By: Hector Mann on 90-70-0893Mkgqkokjp esterase Test strip Ql (U)NegativeNegative [facility] HospitalLeukocytes [#/area] in Urine sediment by Automated countOrdered By: Hector Mann on 77-28-5002LLH Auto (Urine sed) [#/Area]5-9 [HPF]High0-4FMansfield HospitalLeukocytes [#/volume] corrected for nucleated erythrocytes in Blood by Automated counOrdered By: Romain Roy on 73-80-0782KAZ corrected for nucl RBC Auto (Bld) [#/Vol]12.4 10*3/uLHigh4.1-10.5FMansfield HospitalLymphocytes Auto (Bld) [#/Vol]Ordered By: Romain Roy on 87-22-6592Wkfcmuhknak (Bld) [#/Vol]0.5 10*3/uLLow1.00-4.8Corey HospitalLymphocytes/100 WBC Auto (Bld)Ordered By: Romain Roy on 12-79-6696Psijvqujiej/100 WBC (Bld)3.8 %. [facility]y HospitalMCH Auto (RBC) [Entitic mass]Ordered By: Romain Roy on 00-61-1892DMH (RBC) [Entitic mass]30.6 pg27.5-35.2FMansfield HospitalMCHC Auto (RBC) [Mass/Vol]Ordered By: Romain Roy on 35-81-1272VQRQ (RBC) [Mass/Vol]32.6 g/dL32.5-35.6FMansfield HospitalMCV Auto (RBC) [Entitic vol]Ordered By: Romain Roy on 06-14-3450RUF (RBC) [Entitic vol]93.9 fL83.5-101Core[facility] HospitalMonocyte distribution width [Entitic volume] in Blood by AutomatedOrdered By: Romain Roy on 32-84-7121Ahshkhbx distribution width Auto (Bld) [Entitic vol]15.01 %0.00-20.00Corey HospitalMonocytes Auto (Bld) [#/Vol]Ordered By: Romain Roy on 96-71-4029Xergygmdb (Bld) [#/Vol]0.5 10*3/uL0.0-0.8 [facility] HospitalMonocytes/100 WBC Auto (Bld)Ordered By: Romain Roy on 53-38-2099Zbcbdsezf/100 WBC (Bld)4.4 %.[facility]y HospitalNatriuretic peptide B [Mass/Vol]Ordered By: Romain Roy on 03-09-2024 Natriuretic peptide B (Bld) [Mass/Vol]4104.0 pg/mLHigh5-100Core[facility] HospitalNeutrophils Auto (Bld) [#/Vol]Ordered By: Romain Roy on 55-81-2765Rxwtnsggixv (Bld) [#/Vol]11.2 10*3/uLHigh1.8-7.7FMansfield HospitalNeutrophils/100 WBC Auto (Bld)Ordered By: Romain Roy on 80-32-1208Fgqhqhtogec/100 WBC (Bld)90.8 %.[facility] Nitrite Test strip Ql (U)Ordered By: Hector Mann on 96-22-3994Zgzoiuc Ql (U) NegativeNegativeCorey HospitalNo Panel InformationOrdered By: Kim Renteria on 70-41-9804Llygzsd Glucose #2 CommentInsulin ariadna singer [facility] HospitalBedside Glucose CommentSee commentCorey HospitalComment on above:Glu2: WILL NOTIFY DR/RNNo Panel InformationOrdered By: Romain Roy on 85-61-5153Utndzwvb Blood Base Excess- 4.7 mmol/LLow-3.0-3.0[facility] HospitalArterial Blood Oxygen Content5.8 mmol/LLow6.6-9.7FMansfield HospitalArterial Blood Oxygen Lnehumfnmz22.2 %Low95.0-100.0[facility] HospitalArterial Blood Partial Pressure CO237.7 mm[Hg]35.0-45.0[facility] Arterial Blood Partial Pressure O246.9 mm[Hg]Low80.0-100.0[facility] HospitalArterial Blood pH7.357.35-7.45[facility] Blood Gas Critical ValueSee [facility]'s Hospital for RehabilitationComment on above:Critical Value called on: 03/09/2024 at 08:02Blood Gas Sample SiteRight radialCorey HospitalFiO221 %[facility] Estimated GFR (CKD-EPI)9.721 mL/MinCorey HospitalPharmacy Creatinine Clearance (Chem14.50Corey HospitalNucleated erythrocytes [Presence] in Blood by Automated countOrdered By: Romain Roy on 18-34-9656Pokfxuetb RBC Auto Ql (Bld)0.0 /100{WBC}0-0.5FMansfield HospitalPlatelet mean volume Auto (Bld) [Entitic vol]Ordered By: Romain Roy on 20-95-9677Yazgcgnn mean volume (Bld) [Entitic vol]9.2 fL6.6-10.1 [facility] HospitalPlatelets Auto (Bld) [#/Vol]Ordered By: Romain Roy on 92-46-8793Jzcmacfbv (Bld) [#/Vol]184 10*3/tU979-674QcfmalvnaCorey HospitalPotassium [Moles/volume] in Serum or PlasmaOrdered By: Romain Roy on 60-24-6217Xieiblrak [Moles/Vol]5.7 mmol/LHigh3.5-5.1 [facility] HospitalProtein Test strip (U) [Mass/Vol]Ordered By: Hector Mann on 24-97-0815Qizufks (U) [Mass/Vol]300 mg/dLHighNegativeCorey HospitalProtein [Mass/volume] in Serum or PlasmaOrdered By: Romain Roy on 24-30-8966Pgsxmzp [Mass/Vol]7.2 g/dL6.4-8.9Core[facility] HospitalRBC Auto (Bld) [#/Vol]Ordered By: Romain Roy on 33-42-3171SGA (Bld) [#/Vol]3.58 10*6/uLLow3.90-5.60[facility] Hospitalerum or plasma albumin/globulin mass ratioOrdered By: Romain Roy on 87-67-1276Jjdoqqy/Globulin [Mass ratio]1.3 {ratio}[facility] Hospitalerum or plasma anion gap determinationOrdered By: Romain Roy on 42-96-4106Ajcam gap [Moles/Vol]20.5 mmol/LHigh6.0-15.0[facility] Hospitalodium [Moles/volume] in Serum or PlasmaOrdered By: Romain Roy on 49-75-3729Iyywma [Moles/Vol]116 mmol/CRbe335-244DvylpgwpyCorey HospitalComment on above:Critical Result Called to and read back by: NIKI DEY at: 03/09/2024 07:11:44 by:MLGSpecific gravity Test strip (U) [Rel density]Ordered By: Hector Mann on 04-37-6393Zpfosvgw gravity (U) [Rel density]1.013 1.001-1.030Core[facility] HospitalUrea nitrogen [Mass/volume] in Serum or PlasmaOrdered By: Romain Roy on 54-94-2160Zmbr nitrogen [Mass/Vol]68 mg/dLHigh7-25Corey HospitalUrine appearanceOrdered By: Hector Mann on 59-13-5252Jjfmazmwqz (U)ClearClearFMansfield Hospital Urobilinogen Test strip (U) [Mass/Vol]Ordered By: Hector Mann on 03-09-2024 Urobilinogen (U) [Mass/Vol]Normal mg/dLNormalCorey Hospital WBC Auto (Bld) [#/Vol]Ordered By: Romain Roy on 56-56-0813CMY (Bld) [#/Vol]12.4 10*3/uLHigh4.1-10.5FMansfield HospitalpH Test strip (U)Ordered By: Hector Mann on 53-58-0346eC (U)6.5 [pH]5.0-9.0Core[facility] HospitalBasophils Auto (Bld) [#/Vol]Ordered By: Isidoro Mesa on 55-97-6249Yfvfsejfl (Bld) [#/Vol]0.0 10*3/uL0.0-0.2FMansfield HospitalBasophils/100 WBC Auto (Bld)Ordered By: Isidoro Mesa on 03-02-2024 Basophils/100 WBC (Bld)0.4 %.[facility]y HospitalCalcium [Mass/volume] in Serum or PlasmaOrdered By: Isidoro Mesa on 73-43-8410Aopiukp [Mass/Vol]8.2 mg/dLLow8.6-10.3FMansfield HospitalCarbon dioxide, total [Moles/volume] in Serum or PlasmaOrdered By: Isidoro Mesa on 27-58-8732XS9 [Moles/Vol]20.3 mmol/LLow21.0-31.0[facility] HospitalChloride [Moles/volume] in Serum or PlasmaOrdered By: Isidoro Mesa on 64-58-2241Hufegczg [Moles/Vol]95 mmol/UUdx07-196CknnksesuCorey HospitalCreatinine [Mass/volume] in Serum or PlasmaOrdered By: Isidoro Mesa on 22-67-3017Vaipjjxzne [Mass/Vol]8.67 mg/dLHigh0.70-1.30Corey HospitalComment on above:Delta: 7.89 on 03/01/24-1119Eosinophils Auto (Bld) [#/Vol]Ordered By: Isidoro Mesa on 31-75-7876Fgzukesbcxq (Bld) [#/Vol]0.0 10*3/uL0.0-0.45Core[facility] HospitalEosinophils/100 WBC Auto (Bld)Ordered By: Isidoro Mesa on 45-53-1949Pvxpclrkmlg/100 WBC (Bld)0.0 %.[facility] Erythrocyte distribution width Auto (RBC) [Ratio]Ordered By: Isidoro Mesa on 64-88-2801Fmxxopccgpg distribution width (RBC) [Ratio]14.8 %12.0-14.8Corey HospitalGlucose Glucometer (BldC) [Mass/Vol]Ordered By: Julio Allen on 31-14-2964Wqppcbc [Mass/Vol]225 mg/dLCorey HospitalComment on above:Random Glucose Reference Range is dependent on time and content of last meal. Glucose of more than 200 mg/dL in a nonstressed, ambulatory subject supports the diagnosis of Diabetes Mellitus.Glucose [Mass/volume] in Serum or PlasmaOrdered By: Isidoro Mesa on 60-69-6107Aupdyok [Mass/Vol]379 mg/iDMcdt49-775TizridwirCorey HospitalComment on above: Delta: 547 on 03/01/24-1119ADA recommended reference rangeRandom Glucose Reference Range is dependent on time and content of last meal. Glucose of more than 200 mg/dL in a nonstressed, ambulatory subject supports the diagnosis of Diabetes Mellitus.Hematocrit Auto (Bld) [Volume fraction]Ordered By: Isidoro Mesa on 58-60-4192Szutheyuuz (Bld) [Volume fraction]26.9 %Low38.8-50.0 [facility] HospitalHemoglobin [Mass/volume] in BloodOrdered By: Isidoro Mesa on 07-02-3828Rdjuariutm (Bld) [Mass/Vol]9.2 g/dLLow13.0-17.0 [facility] HospitalLeukocytes [#/volume] corrected for nucleated erythrocytes in Blood by Automated counOrdered By: Isidoro Mesa on 76-27-2919BBE corrected for nucl RBC Auto (Bld) [#/Vol]9.4 10*3/uL4.1-10.5FMansfield HospitalLymphocytes Auto (Bld) [#/Vol]Ordered By: Isidoro Mesa on 41-64-0692Hwtvkmgntra (Bld) [#/Vol]0.7 10*3/uLLow1.00-4.8Corey HospitalLymphocytes/100 WBC Auto (Bld)Ordered By: Isidoro Mesa on 13-81-9794Uakyeevdkhq/100 WBC (Bld)7.7 %.[facility] Auto (RBC) [Entitic mass]Ordered By: Isidoro Mesa on 14-60-5119NWS (RBC) [Entitic mass]31.1 pg27.5-35.2FMansfield HospitalMCHC Auto (RBC) [Mass/Vol]Ordered By: Isidoro Mesa on 81-78-8347MXAH (RBC) [Mass/Vol]34.4 g/dL 32.5-35.6FMansfield HospitalMCV Auto (RBC) [Entitic vol]Ordered By: Isidoro Mesa on 32-65-6275HWQ (RBC) [Entitic vol]90.6 fL83.5-101Core[facility] HospitalMagnesium [Mass/volume] in Serum or PlasmaOrdered By: Isidoro Mesa on 66-02-1945Ldwujmlox [Mass/Vol]2.1 mg/dL1.9-2.7FMansfield HospitalMonocytes Auto (Bld) [#/Vol]Ordered By: Isidoro Mesa on 59-75-8684Scoeauoeh (Bld) [#/Vol]0.5 10*3/uL0.0-0.8Corey HospitalMonocytes/100 WBC Auto (Bld)Ordered By: Isidoro Mesa on 03-02-2024 Monocytes/100 WBC (Bld)5.1 %.[facility]y HospitalNeutrophils Auto (Bld) [#/Vol]Ordered By: Isidoro Mesa on 24-80-1185Deukykdflkg (Bld) [#/Vol]8.2 10*3/uLHigh1.8-7.7FMansfield HospitalNeutrophils/100 WBC Auto (Bld)Ordered By: Isidoro Mesa on 30-26-2260Eufambngjdj/100 WBC (Bld)86.8 %. [facility] HospitalNo Panel InformationOrdered By: Chung Maria on 68-34-8867Orqfscp Glucose CommentSee commentCorey Hospital Comment on above:Glu2: Will Repeat TestNo Panel InformationOrdered By: Isidoro Mesa on 00-06-9857Ixvkununj GFR (CKD-EPI)7.398 mL/MinCorey HospitalPharmacy Creatinine Clearance (Chem13.06Corey HospitalNucleated erythrocytes [Presence] in Blood by Automated countOrdered By: Isidoro Mesa on 01-11-9287Gfjzxbmyb RBC Auto Ql (Bld)0.1 /100{WBC}0-0.5FMansfield HospitalPlatelet mean volume Auto (Bld) [Entitic vol]Ordered By: Isidoro Mesa on 49-94-8776Mpmbinbd mean volume (Bld) [Entitic vol]9.5 fL6.6-10.1 Corey HospitalPlatelets Auto (Bld) [#/Vol]Ordered By: Isidoro Mesa on 80-80-3338Fhjkrkrdc (Bld) [#/Vol]121 10*3/jNAku757-940JrxqbnijjCorey HospitalPotassium [Moles/volume] in Serum or PlasmaOrdered By: Isidoro Mesa on 86-81-2471Tbztezaob [Moles/Vol]5.9 mmol/LHigh3.5-5.1FMansfield HospitalRBC Auto (Bld) [#/Vol]Ordered By: Isidoro Mesa on 58-51-9928MYA (Bld) [#/Vol]2.97 10*6/uLLow3.90-5.60[facility] Hospitalerum or plasma anion gap determinationOrdered By: Isidoro Mesa on 15-18-7140Axfkp gap [Moles/Vol]19.6 mmol/LHigh6.0-15.0[facility] Hospitalodium [Moles/volume] in Serum or PlasmaOrdered By: Isidoro Mesa on 28-22-8384Qskaal [Moles/Vol]129 mmol/MRbk208-943BfzgsqfddCorey HospitalUrea nitrogen [Mass/volume] in Serum or PlasmaOrdered By: Isidoro Mesa on 80-40-5332Szxk nitrogen [Mass/Vol]94 mg/dLHigh7-25Corey HospitalWBC Auto (Bld) [#/Vol]Ordered By: Isidoro Mesa on 51-68-5178VET (Bld) [#/Vol]9.4 10*3/uL4.1-10.5FMansfield HospitalActivated partial thromboplastin time (aPTT) in platelet poor plasma by coagulation aOrdered By: Mickey Gr on 52-92-7350qMOQ Coag (PPP) [Time]35.7 s25.1-36.5FMansfield HospitalComment on above:A hematocrit value greater than 55% may lead to inaccurate results in coagulation testing. Patientshaving hematocrit values >55% require a special collection tube for coagulation studies. Please c ontact the laboratory at [phone] for redraw instructions.Bacterial blood cultureOrdered By: Mickey Gr on 01-31-6360Yresgadg identified Cx Nom (Bld)NO GROWTH 5 DAYSCorey HospitalBacteria identified Cx Nom (Bld)NO GROWTH 5 DAYSCorey HospitalBasophils Auto (Bld) [#/Vol] Ordered By: Mickey Gr on 84-89-7056Hogkfhhgv (Bld) [#/Vol]0.1 10*3/uL0.0-0.2 [facility] HospitalBasophils/100 WBC Auto (Bld)Ordered By: Mickey Gr on 06-87-6035Zsqrfekvx/100 WBC (Bld)0.8 %.Corey HospitalBeta hydroxybutyrate [Moles/volume] in Serum or PlasmaOrdered By: Vibha Nicolas on 16-05-6628Ebvi hydroxybutyrate [Moles/Vol]0.14 mmol/L0.02-0.27Corey HospitalCOVID CepheidOrdered By: Mickey Gr on 03-01-2024 SARS-CoV-2 (COVID-19) Ab IA QlNegativeNegativeCorey Hospital Comment on above:This is a duplicate Cepheid Xpert Xpress CoV-2/Flu/RSV Plus RNA by RT-PCR result to be used for statistical tracking purpose only.SARS-CoV-2 (COVID-19) RNA HAO+probe Ql (Unsp spec)Corey HospitalCOVID- Detected/Not DetectedOrdered By: Isidoro Mesa on 37-74-6637CTFE-CoV-2 (COVID- 19) RNA HAO+non-probe Ql (Nph)Not detectedNot DetecteFMansfield HospitalComment on above:This is a duplicate RP2.1 COVID (PCR) result to be used for statistical tracking purpose only.Calcium [Mass/volume] in Serum or Plasma Ordered By: Mickey Gr on 52-76-7859Gszqjxt [Mass/Vol]8.9 mg/dL8.6-10.3 Core[facility] HospitalCarbon dioxide, total [Moles/volume] in Serum or PlasmaOrdered By: Mickey Gr on 12-35-2133SQ2 [Moles/Vol]22.6 mmol/L 21.0-31.0Corey HospitalChloride [Moles/volume] in Serum or PlasmaOrdered By: Mickey Gr on 28-03-9718Gxytkssp [Moles/Vol]94 mmol/LLow 98-107Corey HospitalCreatine kinase [Enzymatic activity/volume] in Serum or PlasmaOrdered By: Mickey Gr on 23-91-6473AY [Catalytic activity/Vol]181 U/M69-567AfhnzeqmcCorey HospitalCreatinine [Mass/volume] in Serum or PlasmaOrdered By: Mickey Gr on 32-10-1234Twgbmfiqhs [Mass/Vol]7.50 mg/dLHigh0.70-1.30Core[facility] HospitalEosinophils Auto (Bld) [#/Vol]Ordered By: Mickey Gr on 48-92-8270Hgovlxczrnz (Bld) [#/Vol]0.0 10*3/uL0.0-0.45Corey HospitalEosinophils/100 WBC Auto (Bld)Ordered By: Mickey Gr on 21-06-6817Kjqzswmzxix/100 WBC (Bld)0.2 %. [facility]y HospitalErythrocyte distribution width Auto (RBC) [Ratio]Ordered By: Mickey Gr on 52-79-3310Qqrxmneueek distribution width (RBC) [Ratio]14.9 %High12.0-14.8Corey HospitalGlucose [Mass/volume] in Serum or PlasmaOrdered By: Mickey Gr on 64-09-1318Lvmyrge [Mass/Vol]477 mg/aMVloy42-993DyoenfzlsCorey HospitalComment on above: ADA recommended reference rangeRandom Glucose Reference Range is dependent on time and content of last meal. Glucose of more than 200 mg/dL in a nonstressed, ambulatory subject supports the diagnosisof Diabetes Mellitus.Glucose mean value [Mass/volume] in Blood Estimated from glycated hemoglobinOrdered By: Isidoro Mesa on 47-60-2737Wwemxvg glucose Estimated from glycated hemoglobin (Bld) [Mass/Vol]217 mg/dLCorey HospitalHematocrit Auto (Bld) [Volume fraction]Ordered By: Mickey Gr on 55-93-3234Zzwsbxtzmp (Bld) [Volume fraction]29.5 %Low38.8-50.0Corey HospitalHemoglobin A1c percentageOrdered By: Isidoro Mesa on 86-35-9722LeK9j (Bld) [Mass fraction]9.2 % High4.3-5.6FMansfield HospitalComment on above:Increased risk for diabetes: 5.7 - 6.4diabetes: >6.4glycemic control for adults with diabetes: &l t;7.0Hemoglobin [Mass/volume] in BloodOrdered By: Mickey Gr on 03-01-2024 Hemoglobin (Bld) [Mass/Vol]10.0 g/dLLow13.0-17.0Corey HospitalINR in Platelet poor plasma by Coagulation assayOrdered By: Mickey Gr on 74-70-1457LYU Coag (PPP) [Relative time]1.1 {INR}Corey HospitalComment on above:INR Therapeutic Range A) Pre- and Peroperative OAT started two weeks before surgery. NOT HIP SURGERY: 1.5 - 2.5 HIP SURGERY: 2 - 3B) Primary and secondary prevention of venous THROMBOSIS: 2 - 3C) Active venous thrombosis, pulmonary embolismand prevention of recurrent venous thrombosis: 2 - 3D) Prevention of arterial thromboembolismincluding patients with mechanical heart valves: 3 - 4.5Lactate [Moles/volume] in Serum or PlasmaOrdered By: Mickey Gr on 68-94-1774Oxsomil [Moles/Vol]0.6 mmol/L0.5-2.2FMansfield HospitalLeukocytes [#/volume] corrected for nucleated erythrocytes in Blood by Automated counOrdered By: Mickey Gr on 39-79-2054JIB corrected for nucl RBC Auto (Bld) [#/Vol]10.2 10*3/uL4.1-10.5FMansfield Hospital Lymphocytes Auto (Bld) [#/Vol]Ordered By: Mickey Gr on 32-07-7795Ipyqvinnvnn (Bld) [#/Vol]0.8 10*3/uLLow1.00-4.8[facility] Lymphocytes/100 WBC Auto (Bld)Ordered By: Mickey Gr on 03-01-2024 Lymphocytes/100 WBC (Bld)8.0 %.[facility] Auto (RBC) [Entitic mass]Ordered By: Mickey Gr on 14-14-2776ELX (RBC) [Entitic mass]30.7 pg27.5-35.2FMansfield HospitalMCHC Auto (RBC) [Mass/Vol]Ordered By: Mickey Gr on 90-29-4810TZGR (RBC) [Mass/Vol]33.9 g/dL32.5-35.6FMansfield HospitalMCV Auto (RBC) [Entitic vol]Ordered By: Mickey Gr on 60-53-1154NZI (RBC) [Entitic vol]90.7 fL83.5-101Corey HospitalMonocyte distribution width [Entitic volume] in Blood by AutomatedOrdered By: Mickey Gr on 82-33-2522Ksmkaych distribution width Auto (Bld) [Entitic vol]14.33 %0.00-20.00Corey HospitalMonocytes Auto (Bld) [#/Vol]Ordered By: Mickey Gr on 05-34-9183Mnsypemoz (Bld) [#/Vol]0.5 10*3/uL 0.0-0.8Corey HospitalMonocytes/100 WBC Auto (Bld)Ordered By: Mickey Gr on 37-40-6717Wyplpzdqa/100 WBC (Bld)5.4 %.Corey HospitalNatriuretic peptide B [Mass/Vol]Ordered By: Mickey Gr on 53-04-9224Nkdesvwwhwj peptide B (Bld) [Mass/Vol]2530.0 pg/mLHigh5-100Corey HospitalNeutrophils Auto (Bld) [#/Vol]Ordered By: Mickey Gr on 28-48-8553Ldusywmafvy (Bld) [#/Vol]8.8 10*3/uLHigh1.8-7.7FMansfield HospitalNeutrophils/100 WBC Auto (Bld)Ordered By: Mickey Gr on 06-25-2849Bsasnypkbtz/100 WBC (Bld)85.6 %.[facility] HospitalNo Panel InformationOrdered By: Chung Maria on 34-32-7192Umavfwn Glucose #2 CommentWill repeat testCorey HospitalNo Panel Information Ordered By: Mickey Gr on 46-49-3623Ghxnygfqv GFR (CKD-EPI)8.804 mL/Min [facility] HospitalPharmacy Creatinine Clearance (Chem13.51 [facility] HospitalNucleated erythrocytes [Presence] in Blood by Automated countOrdered By: Mickey Gr on 19-85-5618Golhiglly RBC Auto Ql (Bld) 0.0 /100{WBC}0-0.5FMansfield HospitalPlatelet mean volume Auto (Bld) [Entitic vol]Ordered By: Mickey Gr on 62-60-6914Mrodnfzt mean volume (Bld) [Entitic vol]8.9 fL6.6-10.1FMansfield HospitalPlatelets Auto (Bld) [#/Vol]Ordered By: Mickey Gr on 79-07-0695Btwuqmqgg (Bld) [#/Vol]141 10*3/bLOrr761-623QwbhpwnduCorey HospitalPotassium [Moles/volume] in Serum or PlasmaOrdered By: Mickey Gr on 51-51-7840Znjmyfaob [Moles/Vol]5.0 mmol/L3.5-5.1FMansfield HospitalProthrombin time (PT)Ordered By: Mickey Gr on 70-13-2637CH Coag (PPP) [Time]13.1 sHigh9.0-12.9Corey HospitalComment on above:A hematocrit value greater than 55% may lead to inaccurate results in coagulation testing. Patientshaving hematocrit values >55% require a special collection tube for coagulation studies. Please c ontact the laboratory at [phone] for redraw instructions.RBC Auto (Bld) [#/Vol]Ordered By: Mickey Gr on 27-52-2750OKU (Bld) [#/Vol]3.25 10*6/uLLow 3.90-5.60Corey HospitalRespiratory pathogens DNA and RNA panel - Nasopharynx by HAO with non-probe detectionOrdered By: Isidoro Mesa on 56-26-1931Pwksudtxkmn pathogens DNA and RNA panel HAO+non-probe (Nph)[facility] Hospitalerum or plasma anion gap determinationOrdered By: Mickey Gr on 55-97-9227Ufozh gap [Moles/Vol]15.4 mmol/LHigh6.0-15.0[facility] Hospitalodium [Moles/volume] in Serum or PlasmaOrdered By: Mickey Gr on 91-85-7003Bcqqri [Moles/Vol]127 mmol/EVps297-735VvaydliruCorey HospitalTroponin I.cardiac [Mass/volume] in Serum or Plasma by Detection limit <= 0.01 ng/Ordered By: Mickey Gr on 28-11-9925Tynvryfd I.cardiac DL <= 0.01 ng/mL [Mass/Vol]36.3 pg/mLHigh0.0-20.0Corey HospitalUrea nitrogen [Mass/volume] in Serum or PlasmaOrdered By: Mickey Gr on 65-52-1287Esjf nitrogen [Mass/Vol]69 mg/dLHigh7-25Corey HospitalWBC Auto (Bld) [#/Vol]Ordered By: Mickey Gr on 62-57-6183UVI (Bld) [#/Vol]10.2 10*3/uL4.1-10.5FMansfield HospitalBasophils Auto (Bld) [#/Vol]on 05-13-2819Vwvemobtb (Bld) [#/Vol]0.1 10 3/uL0.0-0.1FMansfield HospitalBasophils/100 WBC Auto (Bld)on 76-61-8240Whzfnjpsr/100 WBC (Bld)1.2 %0.2-2.0Core[facility] HospitalEosinophils/100 WBC Auto (Bld)on 00-87-0663Cxzugbutgnc/100 WBC (Bld)3.4 %0.9-7.0Core[facility] HospitalErythrocyte distribution width Auto (RBC) [Ratio]on 02-29-2024 Erythrocyte distribution width (RBC) [Ratio]14.5 %11.0-15.0[facility] HospitalEstimated glomerular filtration rate (GFR) non- Americanon 14-32-4907PTM/1.73 sq M.predicted among non-blacks MDRD (S/P/Bld) [Vol rate/Area]10 mL/min/{1.73_m2}Low>=60Corey HospitalHematocrit Auto (Bld) [Volume fraction]on 28-68-7936Znomrhalos (Bld) [Volume fraction]29.1 %Low42.0-54.0Corey HospitalHemoglobin [Mass/volume] in Blood on 49-61-7541Vqgbknymme (Bld) [Mass/Vol]9.5 g/dLLow14.0-18.0Core[facility] HospitalLaboratory - Chemistry and Chemistry - challengeon 02-29-2024 Calcium [Mass/Vol]8.2 mg/dLLow8.5-10.1FMansfield HospitalChloride [Moles/Vol]95 mmol/KAvj88-597XbsmyaawlCorey HospitalCO2 [Moles/Vol] 27.9 mmol/L21.0-32.0Core[facility] HospitalCreatinine [Mass/Vol]6.13 mg/dLHigh0.70-1.30Core[facility] HospitalComment on above:RESULTS CALLED TO Sammy DamonRN)@BY Tamara Russell, MLTat 0043GFR/1.73 sq M.predicted MDRD (S/P/Bld) [Vol rate/Area]13 mL/min/{1.73_m2}Low>=60Corey HospitalGlucose [Mass/Vol]346 mg/uHGhmf71-972FzoixxuamCorey HospitalPotassium [Moles/Vol]4.3 mmol/L3.5-5.1FMary Rutan Hospitalodium [Moles/Vol]131 mmol/UFdo885-256MqcncjfxrCorey Hospital Urea nitrogen [Mass/Vol]43.0 mg/dLHigh7.0-18.0[facility] Urea nitrogen/Creatinine [Mass ratio]7.0 mg/mgCorey Hospital Laboratory - Hematology and Cell countson 92-64-0533Plipgcea granulocytes/100 WBC (Bld)0.2 %0.0-0.5FMansfield HospitalLeukocytes [#/volume] corrected for nucleated erythrocytes in Blood by Automated counon 23-47-6135XPA corrected for nucl RBC Auto (Bld) [#/Vol]5.6 10 3/uL4.0-11.0Corey HospitalLymphocytes Auto (Bld) [#/Vol]on 49-00-0409Alykpgrjols (Bld) [#/Vol]1.1 10 3/uLLow1.2-3.8Corey HospitalLymphocytes/100 WBC Auto (Bld)on 74-97-4043Zklopyptrjz/100 WBC (Bld)19.7 %Low20.5-60.0[facility] HospitalH Auto (RBC) [Entitic mass]on 25-49-5965ZPU (RBC) [Entitic mass]30.4 pg25.9-34.0[facility] HospitalHC Auto (RBC) [Mass/Vol]on 93-08-8936ZOXT (RBC) [Mass/Vol]32.6 g/dL29.9-35.2FMansfield HospitalMCV Auto (RBC) [Entitic vol]on 26-50-2900BYK (RBC) [Entitic vol] 93.3 fL80.0-94.0Corey HospitalMonocytes Auto (Bld) [#/Vol]on 37-33-3642Lldbqlmxd (Bld) [#/Vol]0.3 10 3/uL0.3-0.8Corey HospitalMonocytes/100 WBC Auto (Bld)on 47-94-1525Pmvepppng/100 WBC (Bld)6.0 % 1.7-12.0Corey HospitalNeutrophils Auto (Bld) [#/Vol]on 85-95-1544Snsoewclccd (Bld) [#/Vol]3.9 10 3/uL1.4-6.5FMansfield HospitalNeutrophils/100 WBC Auto (Bld)on 72-96-8611Svfxhvfydfe/100 WBC (Bld)69.5 % 43.0-75.0Corey HospitalNo Panel Informationon 02-29-2024 Eosinophils # (Auto)0.2 10 3/uL0.0-0.7FMansfield HospitalImmature Granulocyte # (Auto)0.01 10 3/uL0.00-0.03[facility] Platelet mean volume Auto (Bld) [Entitic vol]on 66-23-5939Ljnqpddn mean volume (Bld) [Entitic vol]10.3 fL9.5-13.5FMansfield HospitalPlatelets Auto (Bld) [#/Vol]on 21-92-0716Auwirjovh (Bld) [#/Vol]116 10 3/aOMci188-157 [facility] HospitalRBC Auto (Bld) [#/Vol]on 72-34-2479TPX (Bld) [#/Vol]3.12 10 6/uLLow4.70-6.10[facility] Hospitalerum or plasma anion gap determinationon 34-37-2575Rurui gap [Moles/Vol]12.4 mmol/LFMansfield HospitalHemoglobin [Mass/volume] in Bloodon 06-13-9911Xfswyvjqka (Bld) [Mass/Vol]11.1 g/dLLow14.0-18.0[facility] HospitalBacteria identifiedon 69-54-2337Rjcasmmq identified Cx Nom (Body fld)Test: Sterile Fluid Culture/Smear Specimen Source: Vitreous Specimen Type: Fluid Specimen Date: 12/16/2023 1800 Result Date: 12/21/2023 1343 Result Status: Final result Resulting Lab: [facility] [address] [place] [address] CULTURE No growth aerobically and anaerobically STAIN No polymorphonuclear leukocytes seen No organisms seenNoLima Memorial HospitalComment on above:Performed By: #### [id number] #### VIVEK Damico ([id number]) [facility] ([facility]) [address] [place], [place] [address]Patient Correspondenceon 09-44-2310Eywuzdk Correspondence [id number]#[id number] Chuy Medical CenterAmphetamine Screen Ql (U)Ordered By: Yordy Garg on 11-26-2023 Amphetamines Ql (U)NegativeNegFulton County Health CenterBarbiturates [Presence] in Urine by Screen methodOrdered By: Yordy Garg on 11-26-2023 Barbiturates Screen Ql (U)NegativeNegativeCorey Hospital Benzodiazepines Screen Ql (U)Ordered By: Yordy Garg on 11-26-2023 Benzodiazepines Ql (U)NegativeNegFulton County Health Center Benzoylecgonine [Presence] in Urine by Screen methodOrdered By: Yordy Garg on 76-49-1952Jkubqtoqgydgdrd Screen Ql (U)NegativeNegFulton County Health CenterCalcium [Mass/volume] in Serum or PlasmaOrdered By: Yordy Garg on 11-49-6643Dmsgnxe [Mass/Vol]8.8 mg/dL8.6-10.3FMansfield HospitalCannabinoids [Presence] in Urine by Screen methodOrdered By: Yordy Garg on 23-90-9956Ztdsvrpepyiq Screen Ql (U)NegativeNegFulton County Health CenterComment on above:These are unconfirmed results and should not be used for legal purposes. Drug Cut-Off Concentration: AMPH 1000 ng/mL BYRON 200 ng/mL STEPHANIE 200 ng/mL COCM 300 ng/mL OP 300 ng/mL PCP 25 ng/mL THC 20 ng/mLCarbon dioxide, total [Moles/volume] in Serum or PlasmaOrdered By: Yordy Garg on 19-81-7545JW7 [Moles/Vol]25.0 mmol/L21.0-31.0[facility] HospitalChloride [Moles/volume] in Serum or PlasmaOrdered By: Yordy Garg on 71-89-0438Fpeeqhyn [Moles/Vol]93 mmol/I98-736CrvowadjmCorey HospitalCreatinine [Mass/volume] in Serum or PlasmaOrdered By: Yoryd Garg on 91-77-1734Jtapmdrbah [Mass/Vol]6.56 mg/dL0.70-1.30[facility] HospitalGlucose Glucometer (BldC) [Mass/Vol]Ordered By: Romain Mendoza on 57-93-4555Rfpcwgy [Mass/Vol]235 mg/dLCorey HospitalComment on above:Random Glucose Reference Range is dependent on time and content of last meal. Glucose of more than 200 mg/dL in a nonstressed, ambulatory subject supports the diagnosis of Diabetes Mellitus.Glucose [Mass/volume] in Serum or PlasmaOrdered By: Yordy Garg on 24-70-4130Scafxic [Mass/Vol]339 mg/nL58-197KusiqfdsmCorey HospitalComment on above:ADA recommended reference rangeRandom Glucose Reference Range is dependent on time and content of last meal. Glucose of more than 200 mg/dL in a nonstressed, ambulatory subject supports the diagnosisof Diabetes Mellitus.Hematocrit Auto (Bld) [Volume fraction]Ordered By: Yordy Garg on 53-60-9051Ubmaskuyvb (Bld) [Volume fraction]27.8 %38.8-50.0Corey HospitalHemoglobin [Mass/volume] in BloodOrdered By: Yordy Garg on 60-87-2984Nfybulblse (Bld) [Mass/Vol]9.8 g/dL13.0-17.0Corey HospitalNo Panel Information Ordered By: Yordy Garg on 26-50-8054Pgbqkxufj GFR (CKD-EPI)10.339 mL/Min [facility] HospitalPharmacy Creatinine Clearance (Chem15.44 Corey HospitalOpiates [Presence] in Urine by Screen method Ordered By: Yordy Garg on 06-71-6736Cepmumn Screen Ql (U)NegativeNegative Corey HospitalPhencyclidine Screen Ql (U)Ordered By: Yordy Garg on 82-33-4016Jkyrltuvthenp Ql (U)NegativeNegativeCorey HospitalPotassium [Moles/volume] in Serum or PlasmaOrdered By: Yordy Garg on 49-04-1552Lmmwnauhp [Moles/Vol]4.0 mmol/L3.5-5.1FMary Rutan Hospitalerum or plasma anion gap determinationOrdered By: Yordy Garg on 53-38-2970Xhyod gap [Moles/Vol]15.0 mmol/L6.0-15.0[facility] Hospitalodium [Moles/volume] in Serum or PlasmaOrdered By: Yordy Garg on 70-63-7157Hhoyys [Moles/Vol]129 mmol/Y034-739McjmayzyxCorey Hospital Urea nitrogen [Mass/volume] in Serum or PlasmaOrdered By: Yordy Garg on 93-56-2956Zovh nitrogen [Mass/Vol]43 mg/dL7-25[facility] Patient Letter FTMCon [phone] Letter [facility] [place], 2023 YOEL TAMAYO [address] [place] [phone] : 1985 Dear Yoel, You missed your scheduled appointment on: 11/18/[address] Mickey Sheriff. Please note our appointment slots fill quickly. [...] [facility] [address], [place] [address] ExcnbeWsjgjyAdams County HospitalActivated partial thromboplastin time (aPTT) in platelet poor plasma by coagulation aOrdered By: Kavya Chapman on 48-77-8759jODU Coag (PPP) [Time]31.7 s25.1-36.5FMansfield HospitalComment on above:A hematocrit value greater than 55% may lead to inaccurate results in coagulation testing. Patientshaving hematocrit values >55% require a special collection tube for coagulation studies. Please c ontact the laboratory at [phone] for redraw instructions.Basophils Auto (Bld) [#/Vol]Ordered By: Kavya Chapman on 54-52-7022Ooivtjsjd (Bld) [#/Vol] 0.1 10*3/uL0.0-0.2FMansfield HospitalBasophils/100 WBC Auto (Bld) Ordered By: Kavya Bullimore on 93-19-7519Zwhsyrfsw/100 WBC (Bld)1.2 %.Corey HospitalCalcium [Mass/volume] in Serum or PlasmaOrdered By: [facility] Bullimore on 15-26-2061Wsbjylh [Mass/Vol]8.5 mg/dL8.6-10.3FMansfield HospitalCarbon dioxide, total [Moles/volume] in Serum or Plasma Ordered By: [facility] Bullimore on 31-76-2984UE1 [Moles/Vol]28.7 mmol/L21.0-31.0 Corey HospitalChloride [Moles/volume] in Serum or Plasma Ordered By: [facility] Bullimore on 85-96-2014Vbjnxydc [Moles/Vol]97 mmol/L98-107 [facility] HospitalCreatine kinase [Enzymatic activity/volume] in Serum or PlasmaOrdered By: [facility] Bullimore on 74-62-2168GE [Catalytic activity/Vol]48 U/T76-333OkffetvinCorey HospitalCreatinine [Mass/volume] in Serum or PlasmaOrdered By: Kavya Bullimore on 10-02-2023 Creatinine [Mass/Vol]4.60 mg/dL0.70-1.30[facility] Eosinophils Auto (Bld) [#/Vol]Ordered By: [facility] Bullimore on 10-02-2023 Eosinophils (Bld) [#/Vol]0.2 10*3/uL0.0-0.45[facility] Eosinophils/100 WBC Auto (Bld)Ordered By: [facility] Bullimore on 10-02-2023 Eosinophils/100 WBC (Bld)2.4 %.Corey HospitalErythrocyte distribution width Auto (RBC) [Ratio]Ordered By: Kavya Bullimore on 10-02-2023 Erythrocyte distribution width (RBC) [Ratio]14.4 %12.0-14.8Corey HospitalGlucose [Mass/volume] in Serum or PlasmaOrdered By: Kavya Bullimore on 02-93-7897Zrfsokw [Mass/Vol]214 mg/rN91-766QczzeqpopCorey HospitalComment on above:ADA recommended reference rangeRandom Glucose Reference Range is dependent on time and content of last meal. Glucose of more than 200 mg/dL in a nonstressed, ambulatory subject supports the diagnosisof Diabetes Mellitus.Hematocrit Auto (Bld) [Volume fraction]Ordered By: Kavya Chapman on 75-13-3207Nicuyzurcr (Bld) [Volume fraction]28.2 %38.8-50.0 Corey HospitalHemoglobin [Mass/volume] in BloodOrdered By: Kavya Chapman on 22-15-1406Mtehhixpiu (Bld) [Mass/Vol]9.8 g/dL13.0-17.0 Corey HospitalINR in Platelet poor plasma by Coagulation assayOrdered By: Kavya Chapman on 12-94-2845GVY Coag (PPP) [Relative time]1.0 {INR}Corey HospitalComment on above:INR Therapeutic Range A) Pre- and Peroperative OAT started two weeks before surgery. NOT HIP SURGERY: 1.5 - 2.5 HIP SURGERY: 2 - 3B) Primary and secondary prevention of venous THROMBOSIS: 2 - 3C) Active venous thrombosis, pulmonary embolismand prevention of recurrent venous thrombosis: 2 - 3D) Prevention of arterial thromboembolismincluding patients with mechanical heart valves: 3 - 4.5 Leukocytes [#/volume] corrected for nucleated erythrocytes in Blood by Automated counOrdered By: Kavya Chapman on 97-59-8746IIE corrected for nucl RBC Auto (Bld) [#/Vol]7.7 10*3/uL4.1-10.5FMansfield HospitalLymphocytes Auto (Bld) [#/Vol]Ordered By: Kavya Chapman on 36-49-3739Dxlmapkskxr (Bld) [#/Vol]1.0 10*3/uL1.00-4.8Corey HospitalLymphocytes/100 WBC Auto (Bld)Ordered By: Kavya Chapman on 93-21-7853Tuoccdsypvl/100 WBC (Bld) 12.5 %.Corey HospitalMC Auto (RBC) [Entitic mass]Ordered By: Kavya Chapman on 36-99-8549FEB (RBC) [Entitic mass]31.3 pg27.5-35.2FMansfield HospitalMCHC Auto (RBC) [Mass/Vol]Ordered By: Kavya Bullimore on 50-98-8041HPNJ (RBC) [Mass/Vol]34.8 g/dL32.5-35.6FMansfield HospitalMCV Auto (RBC) [Entitic vol]Ordered By: Kavya Bullimore on 10-60-0624JBQ (RBC) [Entitic vol]89.8 fL83.5-101Corey HospitalMonocyte distribution width [Entitic volume] in Blood by AutomatedOrdered By: Kavya Bullimore on 05-73-4021Jutkdyod distribution width Auto (Bld) [Entitic vol]17.27 %0.00-20.00Corey HospitalMonocytes Auto (Bld) [#/Vol]Ordered By: Kavya Bullimore on 85-10-7068Vmpmytbke (Bld) [#/Vol]0.3 10*3/uL0.0-0.8 Corey HospitalMonocytes/100 WBC Auto (Bld)Ordered By: Kavya Bullimore on 84-44-2094Iwmwxwlrp/100 WBC (Bld)3.5 %.Corey HospitalNatriuretic peptide B [Mass/Vol]Ordered By: Kavya Bullimore on 10-02-2023 Natriuretic peptide B (Bld) [Mass/Vol]611.0 pg/mL5-100Corey HospitalNeutrophils Auto (Bld) [#/Vol]Ordered By: Kavya Bullimore on 10-02-2023 Neutrophils (Bld) [#/Vol]6.2 10*3/uL1.8-7.7FMansfield Hospital Neutrophils/100 WBC Auto (Bld)Ordered By: Kavya Bullimore on 10-02-2023 Neutrophils/100 WBC (Bld)80.4 %.Corey HospitalNo Panel InformationOrdered By: Kavya Jadeimore on 96-88-8728Yrdmyazvn GFR (CKD-EPI) 15.828 mL/MinCorey HospitalPharmacy Creatinine Clearance (Chem22.79Corey HospitalNucleated erythrocytes [Presence] in Blood by Automated countOrdered By: Kavya Chapman on 47-63-9766Oxgbrcwtd RBC Auto Ql (Bld)0.0 /100{WBC}0-0.5FMansfield HospitalPlatelet mean volume Auto (Bld) [Entitic vol]Ordered By: Kavya Jadeimore on 10-02-2023 Platelet mean volume (Bld) [Entitic vol]7.4 fL6.6-10.1FMansfield HospitalPlatelets Auto (Bld) [#/Vol]Ordered By: Kavya Jadeimore on 10-02-2023 Platelets (Bld) [#/Vol]143 10*3/kA935-686AmnajpifsCorey Hospital Potassium [Moles/volume] in Serum or PlasmaOrdered By: Kavya Ramore on 82-32-9177Hxbhopiwf [Moles/Vol]3.7 mmol/L3.5-5.1FMansfield HospitalProthrombin time (PT)Ordered By: Kavya Chapman on 42-28-3641TJ Coag (PPP) [Time]12.0 s9.0-12.9Corey HospitalComment on above:A hematocrit value greater than 55% may lead to inaccurate results in coagulation testing. Patientshaving hematocrit values >55% require a special collection tube for coagulation studies. Please contact the laboratory at [phone] for redraw instructions.RBC Auto (Bld) [#/Vol]Ordered By: Kavya Chapman on 23-50-3246ERI (Bld) [#/Vol]3.14 10*6/uL3.90-5.60[facility] Hospitalerum or plasma anion gap determinationOrdered By: Kavyaselma Jadekennedy [facility] on 11-85-7586Ysjuh gap [Moles/Vol]14.0 mmol/L6.0-15.0[facility] Hospitalodium [Moles/volume] in Serum or PlasmaOrdered By: Kavyaselma Ramohiohealth grove [facility] on 48-21-7512Whlemj [Moles/Vol]136 mmol/O012-069JdmgswgjoCorey Hospital Troponin I.cardiac [Mass/volume] in Serum or Plasma by Detection limit <= 0.01 ng/Ordered By: Kavya Chapman on 88-11-5525Eyrvvkqf I.cardiac DL <= 0.01 ng/mL [Mass/Vol]31.0 pg/mL0.0-20.0Corey HospitalUrea nitrogen [Mass/volume] in Serum or PlasmaOrdered By: Kavya Jadeimore on 92-44-7450Yiba nitrogen [Mass/Vol]34 mg/dL7-25Corey HospitalWBC Auto (Bld) [#/Vol]Ordered By: Kavya Jadeimore on 95-96-4749ZXM (Bld) [#/Vol]7.7 10*3/uL 4.1-10.5FMansfield HospitalAlanine aminotransferase [Enzymatic activity/volume] in Serum or PlasmaOrdered By: Kishore Forte on 71-27-4848BVF [Catalytic activity/Vol]11 U/L7-52Corey HospitalAlbumin [Mass/volume] in Serum or PlasmaOrdered By: Kishore Forte on 06-08-2508Kahuzbp [Mass/Vol]3.7 g/dL2.9-4.4FMansfield HospitalAlbumin [Mass/volume] in Serum or Plasma by Bromocresol green (BCG) dye binding methoOrdered By: Kishore Forte on 83-27-4854Nnqtvlu BCG dye [Mass/Vol]3.6 g/dL3.5-5.7FMansfield HospitalAlkaline phosphatase [Enzymatic activity/volume] in Serum or PlasmaOrdered By: Kishore Forte on 73-64-6733MXG [Catalytic activity/Vol]63 U/M08-575SfjhhehagCorey HospitalAspartate aminotransferase [Enzymatic activity/volume] in Serum or PlasmaOrdered By: Kishore Forte on 94-10-5400VOW [Catalytic activity/Vol]12 U/N71-27HevnmpkqvCorey HospitalBasophils Auto (Bld) [#/Vol]Ordered By: Kishore Forte on 02-26-9852Dodcjjsjq (Bld) [#/Vol] 0.1 10*3/uL0.0-0.2FMansfield HospitalBasophils/100 WBC Auto (Bld) Ordered By: Kishore Forte on 59-84-6315Nthxpcnyv/100 WBC (Bld)1.4 %.Corey HospitalBilirubin.total [Mass/volume] in Serum or PlasmaOrdered By: Kishore Reanna on 82-20-1195Yadfqekgw [Mass/Vol]0.6 mg/dL0.3-1.0Corey HospitalCalcium [Mass/volume] in Serum or PlasmaOrdered By: Kishore Reanna on 24-62-5548Nozvfvz [Mass/Vol]8.8 mg/dL8.6-10.3FMansfield HospitalCarbon dioxide, total [Moles/volume] in Serum or PlasmaOrdered By: Kishore Reanna on 93-36-3894MG3 [Moles/Vol]30.4 mmol/L21.0-31.0Corey HospitalChloride [Moles/volume] in Serum or PlasmaOrdered By: Kishore Reanna on 51-80-9661Tczikzzh [Moles/Vol]98 mmol/L91-379BvmyepftlCorey HospitalComprehensive metabolic panelon 34-91-7667Xioauce [Mass/Vol]3.6 g/dL3.5 - 5.7 g/dLNOTN HealthcareAlbumin/Globulin [Mass ratio]1.3 {ratio}[facility] HealthcareALP [Catalytic activity/Vol]63 U/L34 - 104 U/LNOMS HealthcareALT [Catalytic activity/Vol]11 U/L7 - 52 U/LNOMS HealthcareAnion gap [Moles/Vol]10.8 mmol/L6.0 - 15.0NOTN HealthcareAST [Catalytic activity/Vol]12 U/LLow13 - 39 U/L NOMS HealthcareBilirubin [Mass/Vol]0.6 mg/dL0.3 - 1.0 mg/dLNOTN Healthcare Calcium [Mass/Vol]8.8 mg/dL8.6 - 10.3 mg/dLNOTN HealthcareChloride [Moles/Vol]98 mmol/L98 - 107 mmol/LNOMS HealthcareCO2 [Moles/Vol]30.4 mmol/L21.0 - 31.0 mmol/LNOMS HealthcareCreatinine (U) [Mass/Vol]5.66 mg/dLHigh0.70 - 1.30 mg/dL NOMS HealthcareCREATININE CLR CALC HACPZJWW19.04NOTN HealthcareGFR/1.73 sq M.predicted MDRD (S/P/Bld) [Vol rate/Area]12.341 mL/min/{1.73_m2}[facility] Globulin (S) [Mass/Vol]2.7 g/dLNOTN HealthcareGlucose [Mass/Vol]175 mg/mNBghx28 - 100 mg/dLNOTN HealthcareComment on above:Random Glucose Reference Range is dependent on time and content of last meal. Glucose of more than 200 mg/dL in a nonstressed, ambulatory subject supports the diagnosis of Diabetes Mellitus. ADA recommended reference range Interpretation and review of laboratory resultsAbnormalNOMS HealthcarePotassium [Moles/Vol]4.2 mmol/L3.5 - 5.1 mmol/LNOMS HealthcareProtein [Mass/Vol]6.3 g/dL Low6.4 - 8.9 g/dLNOTN HealthcareSodium [Moles/Vol]135 mmol/KUzz874 - 145 mmol/L [facility]OMS HealthcareUrea nitrogen [Mass/Vol]35 mg/dLHigh7 - 25 mg/dLNOMissouri Southern Healthcare NOMS HealthcareCreatinine [Mass/volume] in Serum or PlasmaOrdered By: Kishore Forte on 66-58-6275Rjuzdmetbz [Mass/Vol]5.66 mg/dL0.70-1.30Corey HospitalEosinophils Auto (Bld) [#/Vol]Ordered By: Kishore Forte on 60-49-9121Fjajlnnwrfj (Bld) [#/Vol]0.1 10*3/uL0.0-0.45Corey HospitalEosinophils/100 WBC Auto (Bld)Ordered By: Kishore Forte on 09-24-2023 Eosinophils/100 WBC (Bld)1.6 %.Corey HospitalErythrocyte distribution width Auto (RBC) [Ratio]Ordered By: Kishore Forte on 09-24-2023 Erythrocyte distribution width (RBC) [Ratio]13.8 %12.0-14.8Corey HospitalGlobulin Calc (S) [Mass/Vol]Ordered By: Kishore Forte on 55-80-2562Gzghjame (S) [Mass/Vol]2.7 g/dLCorey Hospital Glucose [Mass/volume] in Serum or PlasmaOrdered By: Kishore Forte on 09-24-2023 Glucose [Mass/Vol]175 mg/fZ54-117TvjltbqpmCorey HospitalComment on above:ADA recommended reference rangeRandom Glucose Reference Range is dependent on time and content of last meal. Glucose of more than 200 mg/dL in a nonstressed, ambulatory subject supports the diagnosisof Diabetes Mellitus. Hematocrit Auto (Bld) [Volume fraction]Ordered By: Kishore Forte on 09-24-2023 Hematocrit (Bld) [Volume fraction]30.9 %38.8-50.0Corey HospitalHemoglobin [Mass/volume] in BloodOrdered By: Kishore Forte on 09-24-2023 Hemoglobin (Bld) [Mass/Vol]10.8 g/dL13.0-17.0[facility] IgA [Mass/volume] in Serum or PlasmaOrdered By: Kishore Forte on 64-96-7745YnY [Mass/Vol]312 mg/eY51-855GvpzghlniCorey HospitalIgG [Mass/volume] in Serum or PlasmaOrdered By: Kishore Forte on 85-62-9056SgQ [Mass/Vol]1183 mg/dL 603-1613Corey HospitalIgM [Mass/volume] in Serum or Plasma Ordered By: Kishore Forte on 21-02-8265JyQ [Mass/Vol]166 mg/wA54-509BsaykdbvtCorey HospitalComment on above:Performed at: [address] [id number] Director: Pablito Alexander PhD, Phone: [phone] light chains.kappa.free [Mass/volume] in SerumOrdered By: Kishore Forte on 60-01-4284Qcwwcdrjdpuxqs light chains.kappa.free (S) [Mass/Vol]189.5 mg/L3.3-19.4FMansfield HospitalImmunoglobulin light chains.kappa.free/Immunoglobulin light chains.lambda.free [MassOrdered By: Kishore Forte on 05-45-1544Vmkwtgemitgpgy light chains.kappa.free/Immunoglobulin light chains.lambda.free (S) [Mass ratio]1.48 0.26-1.65Corey HospitalComment on above:Performed at: [facility] [id number] Director: Pablito Alexander PhD, Phone: [phone] light chains.lambda.free [Mass/volume] in Serum or PlasmaOrdered By: Kishore Forte on 09-24-2023 Immunoglobulin light chains.lambda.free [Mass/Vol]128.2 mg/L5.7-26.3FMansfield HospitalLeukocytes [#/volume] corrected for nucleated erythrocytes in Blood by Automated counOrdered By: Kishore Forte on 09-24-2023 WBC corrected for nucl RBC Auto (Bld) [#/Vol]7.0 10*3/uL4.1-10.5FMansfield HospitalLymphocytes Auto (Bld) [#/Vol]Ordered By: Kishore Forte on 19-56-2536Yrpiwgltizc (Bld) [#/Vol]1.2 10*3/uL1.00-4.8Corey HospitalLymphocytes/100 WBC Auto (Bld)Ordered By: Kishore Forte on 02-84-3541Hiokhsezaiq/100 WBC (Bld)16.8 %.[facility] Auto (RBC) [Entitic mass]Ordered By: Kishore Forte on 28-54-6205FXG (RBC) [Entitic mass]31.5 pg27.5-35.2FMansfield HospitalMCHC Auto (RBC) [Mass/Vol]Ordered By: Kishore Forte on 30-50-7374EILQ (RBC) [Mass/Vol]34.9 g/dL 32.5-35.6FMansfield HospitalMCV Auto (RBC) [Entitic vol]Ordered By: Kishore Forte on 03-20-8641FVW (RBC) [Entitic vol]90.1 fL83.5-101Corey HospitalMonocytes Auto (Bld) [#/Vol]Ordered By: Kishore Forte on 60-69-7909Nfyqjgotv (Bld) [#/Vol]0.3 10*3/uL0.0-0.8Corey HospitalMonocytes/100 WBC Auto (Bld)Ordered By: Kishore Forte on 09-24-2023 Monocytes/100 WBC (Bld)4.6 %.Corey HospitalNeutrophils Auto (Bld) [#/Vol]Ordered By: Kishore Forte on 82-46-9811Dbpdkgaehwp (Bld) [#/Vol]5.3 10*3/uL1.8-7.7FMansfield HospitalNeutrophils/100 WBC Auto (Bld) Ordered By: Kishore Forte on 32-49-9318Jqjoasdbqlw/100 WBC (Bld)75.6 %.Corey HospitalNo Panel InformationOrdered By: Kishore Forte on 87-37-2791Pmrcuehbw GFR (CKD-EPI)12.341 mL/MinCorey Hospital Pharmacy Creatinine Clearance (Chem19.04Corey HospitalProtein Electrophoresis M-SpikeNot observed g/dLNot ObservedCorey HospitalProtein Electrophoresis NoteSee comment.[facility] Comment on above:Protein electrophoresis scan will follow via computer,mail, or transportation planning technician delivery.Performed at: [facility] [employer] [facility] [id number] Director: Pablito Alexander PhD, Phone: [phone] ImmunofixationSee comment.Corey HospitalComment on above:No monoclonality detected.Nucleated erythrocytes [Presence] in Blood by Automated countOrdered By: Kishore Forte on 42-94-6601Iuepqsixb RBC Auto Ql (Bld)0.1 /100{WBC}0-0.5FMansfield HospitalPlatelet mean volume Auto (Bld) [Entitic vol]Ordered By: Kishore Forte on 22-92-4541Pdxfaztx mean volume (Bld) [Entitic vol]7.4 fL6.6-10.1FMansfield HospitalPlatelets Auto (Bld) [#/Vol]Ordered By: Kishore Forte on 14-98-2211Wsogbefhj (Bld) [#/Vol]186 10*3/uL 150-450Corey HospitalPotassium [Moles/volume] in Serum or PlasmaOrdered By: Kishore Forte on 73-63-3931Szrimguwn [Moles/Vol]4.2 mmol/L 3.5-5.1FMansfield HospitalProtein [Mass/volume] in Serum or Plasma Ordered By: Kishore Forte on 64-14-2356Xrtcbba [Mass/Vol]6.3 g/dL6.4-8.9 Corey HospitalProtein [Mass/Vol]6.5 g/dL6.0-8.5FMansfield HospitalRBC Auto (Bld) [#/Vol]Ordered By: Kishore Forte on 88-17-9757QOL (Bld) [#/Vol]3.43 10*6/uL3.90-5.60[facility] Hospitalerum globulin measurement (mass/volume)Ordered By: Kishore Forte on 89-01-8562Vhpgdglw (S) [Mass/Vol]2.8 g/dL2.2-3.9[facility] Hospitalerum or plasma albumin/globulin mass ratioOrdered By: Kishore Forte on 23-17-0565Azwzpyt/Globulin [Mass ratio]1.3 {ratio}0.7-1.7FMary Rutan Hospitalerum or plasma alpha 1 globulin measurement by electrophoresis (mass/volume)Ordered By: Kishore Forte on 81-40-6417Vnvzw 1 globulin Elph [Mass/Vol]0.2 g/dL0.0-0.4FMary Rutan Hospitalerum or plasma alpha 2 globulin measurement by electrophoresis (mass/volume)Ordered By: Kishore Forte on 92-55-0771Hwuso 2 globulin Elph [Mass/Vol]0.7 g/dL0.4-1.0[facility] Hospitalerum or plasma anion gap determinationOrdered By: Kishore Forte on 38-44-3056Lnmir gap [Moles/Vol]10.8 mmol/L6.0-15.0[facility] Hospitalerum or plasma beta globulin measurement by electrophoresis (mass/volume) Ordered By: Kishore Forte on 08-71-5622Cwyw globulin Elph [Mass/Vol]0.8 g/dL 0.7-1.3FMary Rutan Hospitalerum or plasma gamma globulin measurement by electrophoresis (mass/volume)Ordered By: Kishore Mercadonava on 63-03-6383Eobwd globulin Elph [Mass/Vol]1.2 g/dL0.4-1.8[facility] Hospitalodium [Moles/volume] in Serum or PlasmaOrdered By: Kishore Reanna on 81-89-5113Vodphg [Moles/Vol]135 mmol/M388-753WxolrlxkfCorey HospitalUrea nitrogen [Mass/volume] in Serum or PlasmaOrdered By: Kishore Reanna on 13-95-0881Hlmm nitrogen [Mass/Vol]35 mg/dL7-25[facility] WBC Auto (Bld) [#/Vol]Ordered By: Kishore Reanna on 76-52-2322PJF (Bld) [#/Vol] 7.0 10*3/uL4.1-10.5FMansfield HospitalActivated partial thromboplastin time (aPTT) in platelet poor plasma by coagulation aOrdered By: Lwa Cnao on 12-16-7641zJVX Coag (PPP) [Time]37.6 s25.1-36.5FMansfield HospitalComment on above:A hematocrit value greater than 55% may lead to inaccurate results in coagulation testing. Patientshaving hematocrit values >55% require a special collection tube for coagulation studies. Please c ontact the laboratory at [phone] for redraw instructions.Alanine aminotransferase [Enzymatic activity/volume] in Serum or PlasmaOrdered By: Law Cano on 64-93-5583VHN [Catalytic activity/Vol]12 U/L7-52Corey HospitalAlbumin [Mass/volume] in Serum or Plasma by Bromocresol green (BCG) dye binding methoOrdered By: Law Cano on 38-61-3342Xnlcmpk BCG dye [Mass/Vol]3.6 g/dL3.5-5.7FMansfield HospitalAlkaline phosphatase [Enzymatic activity/volume] in Serum or PlasmaOrdered By: Law Cano on 78-06-5173IYJ [Catalytic activity/Vol]61 U/M57-084MckuwyrxeCorey HospitalAspartate aminotransferase [Enzymatic activity/volume] in Serum or PlasmaOrdered By: Law Nolbertoosei on 51-44-6194QHY [Catalytic activity/Vol]13 U/L 13-39Corey HospitalBilirubin.total [Mass/volume] in Serum or PlasmaOrdered By: Law Nolbertosojv on 13-38-8705Tbliufuvm [Mass/Vol]0.5 mg/dL 0.3-1.0Corey HospitalCalcium [Mass/volume] in Serum or Plasma Ordered By: Law Nolbertosojv on 46-74-1402Mbitqmr [Mass/Vol]8.6 mg/dL8.6-10.3 [facility] HospitalCarbon dioxide, total [Moles/volume] in Serum or PlasmaOrdered By: Law Nolbertosojv on 28-99-2924ZR6 [Moles/Vol]26.0 mmol/L 21.0-31.0Corey HospitalChloride [Moles/volume] in Serum or PlasmaOrdered By: Law Elisajv on 39-41-5758Yevhmdsw [Moles/Vol]98 mmol/L 98-107Corey HospitalCreatinine [Mass/volume] in Serum or PlasmaOrdered By: Law Elisajv on 20-33-7304Airvrmuiku [Mass/Vol]6.43 mg/dL 0.70-1.30Corey HospitalErythrocyte distribution width Auto (RBC) [Ratio]Ordered By: Law Elisajv on 69-97-8816Rrpisuaqoig distribution width (RBC) [Ratio]13.4 %12.0-14.8Corey HospitalGlobulin Calc (S) [Mass/Vol]Ordered By: Law Nolbertosojv on 07-62-2956Vjpvrpjm (S) [Mass/Vol] 2.6 g/dLCorey HospitalGlucose Glucometer (BldC) [Mass/Vol] Ordered By: Jorge Mederos on 38-54-6634Csxtcuu [Mass/Vol]192 mg/dLCorey HospitalComment on above:Random Glucose Reference Range is dependent on time and content of last meal. Glucose of more than 200 mg/dL in a nonstressed, ambulatory subject supports the diagnosis of Diabetes Mellitus. Glucose [Mass/volume] in Serum or PlasmaOrdered By: Law Cano on 08-18-2023 Glucose [Mass/Vol]97 mg/dD78-718CgptrrtcmCorey HospitalComment on above:ADA recommended reference rangeRandom Glucose Reference Range is dependent on time and content of last meal. Glucose of more than 200 mg/dL in a nonstressed, ambulatory subject supports the diagnosisof Diabetes Mellitus. Hematocrit Auto (Bld) [Volume fraction]Ordered By: Law Cano on 08-18-2023 Hematocrit (Bld) [Volume fraction]34.4 %38.8-50.0Corey HospitalHemoglobin [Mass/volume] in BloodOrdered By: Law Cano on 08-18-2023 Hemoglobin (Bld) [Mass/Vol]12.0 g/dL13.0-17.0[facility] INR in Platelet poor plasma by Coagulation assayOrdered By: Law Cano on 30-11-0131YAN Coag (PPP) [Relative time]1.1 {INR}Corey HospitalComment on above:INR Therapeutic Range A) Pre- and Peroperative OAT started two weeks before surgery. NOT HIP SURGERY: 1.5 - 2.5 HIP SURGERY: 2 - 3B) Primary and secondary prevention of venous THROMBOSIS: 2 - 3C) Active venous thrombosis, pulmonary embolismand prevention of recurrent venous thrombosis: 2 - 3D) Prevention of arterial thromboembolismincluding patients with mechanical heart valves: 3 - 4.5Leukocytes [#/volume] corrected for nucleated erythrocytes in Blood by Automated counOrdered By: Law Cano on 70-89-5176UJT corrected for nucl RBC Auto (Bld) [#/Vol]5.4 10*3/uL4.1-10.5FSelect Medical [facility] Auto (RBC) [Entitic mass]Ordered By: Law Cano on 04-88-7068PZR (RBC) [Entitic mass]31.4 pg27.5-35.2FPremier Health Upper Valley Medical CenterHC Auto (RBC) [Mass/Vol]Ordered By: Law Cano on 69-15-8030PAOZ (RBC) [Mass/Vol] 34.8 g/dL32.5-35.6FMansfield HospitalMCV Auto (RBC) [Entitic vol] Ordered By: Law Pérezjv on 88-51-6780IEA (RBC) [Entitic vol]90.3 fL83.5-101 [facility] HospitalMagnesium [Mass/volume] in Serum or Plasma Ordered By: Law Pérezjv on 78-04-0421Agyptojcp [Mass/Vol]1.9 mg/dL1.9-2.7 [facility] HospitalNo Panel InformationOrdered By: Vargaskevin Elisajv on 97-58-3469Volakjnzi GFR (CKD-EPI)10.590 mL/MinCorey HospitalPharmacy Creatinine Clearance (Chem15.78[facility] Platelet mean volume Auto (Bld) [Entitic vol]Ordered By: Law Pérezjv on 56-17-9715Bucunrln mean volume (Bld) [Entitic vol]8.6 fL6.6-10.1FMansfield HospitalPlatelets Auto (Bld) [#/Vol]Ordered By: Law Cano on 47-02-2547Dfzykgmmq (Bld) [#/Vol]99 10*3/dP413-385QbovzsvkbCorey HospitalPotassium [Moles/volume] in Serum or PlasmaOrdered By: Vargaskevin Elisajv on 64-28-0360Ucoyjtatl [Moles/Vol]4.0 mmol/L3.5-5.1FMansfield HospitalProtein [Mass/volume] in Serum or PlasmaOrdered By: Vargaskevin Nolbertosojv on 22-41-2922Dsjwemk [Mass/Vol]6.2 g/dL6.4-8.9[facility] Prothrombin time (PT)Ordered By: Vargaskevin Elisajv on 41-49-1033CX Coag (PPP) [Time]12.0 s9.0-12.9[facility] HospitalComment on above:A hematocrit value greater than 55% may lead to inaccurate results in coagulation testing. Patientshaving hematocrit values >55% require a special collection tube for coagulation studies. Please contact the laboratory at [phone] for redraw instructions.RBC Auto (Bld) [#/Vol]Ordered By: Law Cano on 14-57-6927JZJ (Bld) [#/Vol]3.81 10*6/uL3.90-5.60[facility] Hospitalerum or plasma albumin/globulin mass ratioOrdered By: Law Cano on 30-81-1286Dyfjfyl/Globulin [Mass ratio]1.4 {ratio}[facility] Hospitalerum or plasma anion gap determinationOrdered By: Law Cano on 05-90-8025Whztu gap [Moles/Vol]12.0 mmol/L6.0-15.0[facility] Hospitalodium [Moles/volume] in Serum or PlasmaOrdered By: Law Cano on 24-38-2784Bljkis [Moles/Vol]132 mmol/O371-640VejvlljyyCorey Hospital Troponin I.cardiac [Mass/volume] in Serum or Plasma by Detection limit <= 0.01 ng/Ordered By: Law Cano on 32-46-1900Gjmulhue I.cardiac DL <= 0.01 ng/mL [Mass/Vol]38.1 pg/mL0.0-20.0[facility] HospitalUrea nitrogen [Mass/volume] in Serum or PlasmaOrdered By: Law Cano on 30-52-4967Kphb nitrogen [Mass/Vol]40 mg/dL03-12[facility] HospitalPhysician Referralon 26-32-7980Uupsjfugp Referral [id number]#1.00TIFFNoCleveland Clinic Hillcrest HospitalAlanine aminotransferase [Enzymatic activity/volume] in Serum or Plasma Ordered By: Haydee Lira on 20-56-6554VEH [Catalytic activity/Vol]13 U/L [facility] HospitalAlbumin [Mass/volume] in Serum or Plasma Ordered By: Haydee Lira on 84-64-3304Jefgncv [Mass/Vol]2.9 g/dL2.9-4.4 [facility] HospitalAlbumin [Mass/volume] in Serum or Plasma by Bromocresol green (BCG) dye binding methoOrdered By: Haydee Lira on 29-59-5812Mifhwrt BCG dye [Mass/Vol]3.4 g/dL3.5-5.7FMansfield HospitalAlbumin/Protein.total in 24 hour Urine by ElectrophoresisOrdered By: Haydee Lria on 02-23-4577Xfhystf Elph (24H U) [Mass fraction]58.9 %. [facility] HospitalAlkaline phosphatase [Enzymatic activity/volume] in Serum or PlasmaOrdered By: Haydee Lira on 03-12-2023 ALP [Catalytic activity/Vol]82 U/V48-152LkgxwmywfCorey Hospital Aspartate aminotransferase [Enzymatic activity/volume] in Serum or PlasmaOrdered By: Haydee Lira on 64-26-4931EUB [Catalytic activity/Vol]12 U/L13-39 [facility] HospitalBasophils Auto (Bld) [#/Vol]Ordered By: Haydee Lira on 63-98-1838Guaanheva (Bld) [#/Vol]0.1 10*3/uL0.0-0.2FMansfield HospitalBasophils/100 WBC Auto (Bld)Ordered By: Haydee Lira on 16-20-2754Kbpuygkgh/100 WBC (Bld)1.7 %.[facility] HospitalBilirubin.total [Mass/volume] in Serum or PlasmaOrdered By: Haydee Lira on 39-60-2120Stqvlfojh [Mass/Vol]0.3 mg/dL0.3-1.0[facility] HospitalCalcium [Mass/volume] in Serum or PlasmaOrdered By: Haydee Lira 85-43-5610Lupdccc [Mass/Vol]8.0 mg/dL8.6-10.3FMansfield HospitalCarbon dioxide, total [Moles/volume] in Serum or PlasmaOrdered By: Haydee Lira on 23-08-5649MC6 [Moles/Vol]28.8 mmol/L21.0-31.0[facility] HospitalChloride [Moles/volume] in Serum or PlasmaOrdered By: Haydee Lira on 44-65-6476Pjrxwtnh [Moles/Vol]99 mmol/K79-713AikspajisCorey HospitalCreatinine [Mass/volume] in Serum or PlasmaOrdered By: Haydee Lira on 58-38-9130Xydmdakgla [Mass/Vol]4.29 mg/dL0.70-1.30 [facility] HospitalEosinophils Auto (Bld) [#/Vol]Ordered By: Haydee Lira on 67-57-7901Qxuzqdovppb (Bld) [#/Vol]0.1 10*3/uL0.0-0.45 [facility] HospitalEosinophils/100 WBC Auto (Bld)Ordered By: Haydee Lira on 50-33-7975Lbprgvfhvlu/100 WBC (Bld)2.3 %.[facility] HospitalErythrocyte distribution width Auto (RBC) [Ratio]Ordered By: Haydee Lira on 33-88-3484Ceqhnosvrgd distribution width (RBC) [Ratio]12.6 %12.0-14.8[facility] HospitalGamma globulin/Protein.total in 24 hour Urine by ElectrophoresisOrdered By: Haydee Lira 86-28-8596Azuqx globulin Elph (24H U) [Mass fraction]14.7 %. [facility] HospitalGlobulin Calc (S) [Mass/Vol]Ordered By: Haydee Lira 33-60-0795Qndvpyhx (S) [Mass/Vol]2.6 g/dLCorey HospitalGlucose [Mass/volume] in Serum or PlasmaOrdered By: Haydee Lira 82-83-3544Bfmzkco [Mass/Vol]358 mg/xJ34-504KrljplageCorey HospitalComment on above:ADA recommended reference rangeRandom Glucose Reference Range is dependent on time and content of last meal. Glucose of more than 200 mg/dL in a nonstressed, ambulatory subject supports the diagnosisof Diabetes Mellitus.Hematocrit Auto (Bld) [Volume fraction]Ordered By: Haydee Lira 71-43-6971Bmlxnixbqd (Bld) [Volume fraction]27.5 %38.8-50.0 [facility] HospitalHemoglobin [Mass/volume] in BloodOrdered By: Haydee Lira on 22-35-1312Qslzwttxbc (Bld) [Mass/Vol]9.5 g/dL13.0-17.0 [facility] HospitalIgA [Mass/volume] in Serum or PlasmaOrdered By: Haydee Lira on 49-99-9103InS [Mass/Vol]307 mg/yE34-743ZwgdftlmvCorey HospitalIgG [Mass/volume] in Serum or PlasmaOrdered By: Haydee Lira on 48-27-7802UoA [Mass/Vol]1059 mg/yN770-7314LeqckaiyrCorey HospitalIgM [Mass/volume] in Serum or PlasmaOrdered By: Haydee Lira on 96-63-4458IkA [Mass/Vol]160 mg/xM95-005PjbgjlygmCorey HospitalImmunoglobulin light chains.kappa.free [Mass/volume] in SerumOrdered By: Haydee Lira on 93-98-8702Yvpzojhvtpjuty light chains.kappa.free (S) [Mass/Vol]166.7 mg/L3.3-19.4FMansfield HospitalImmunoglobulin light chains.kappa.free/Immunoglobulin light chains.lambda.free [MassOrdered By: Haydee Lira on 46-43-4839Qkziyoqscmuxxm light chains.kappa.free/Immunoglobulin light chains.lambda.free (S) [Mass ratio]1.54 0.26-1.65[facility] HospitalComment on above:Performed at: [facility] [address] [id number] Director: Pablito Alexander PhD, Phone: [phone] light chains.lambda.free [Mass/volume] in Serum or PlasmaOrdered By: Haydee Lira on 03-12-2023 Immunoglobulin light chains.lambda.free [Mass/Vol]108.0 mg/L5.7-26.3FMansfield HospitalKappa light chains.free [Mass/volume] in UrineOrdered By: Jorje Small on 56-45-8373Vfoeshtqznljej light chains.kappa.free (U) [Mass/Vol] 206.55 mg/L1.17-86.46[facility] HospitalKappa light chains.free/Lambda light chains.free [Mass Ratio] in UrineOrdered By: Jorje Small on 30-92-0311Alcdwubvxnjvuf light chains.kappa.free/Immunoglobulin light chains.lambda.free (U) [Mass ratio]3.031.83-14.26[facility] HospitalComment on above:Performed at: [facility] - [facility] [address] [id number] Director: Saulo Araujo MD, Phone: [phone] Lambda light chains.free [Mass/volume] in UrineOrdered By: Jorje Small on 63-34-7371Vezajzoystiifd light chains.lambda.free (U) [Mass/Vol]68.24 mg/L 0.27-15.21[facility] HospitalLeukocytes [#/volume] corrected for nucleated erythrocytes in Blood by Automated counOrdered By: Haydee Lira on 96-33-3796AHY corrected for nucl RBC Auto (Bld) [#/Vol]6.1 10*3/uL4.1-10.5 [facility] HospitalLymphocytes Auto (Bld) [#/Vol]Ordered By: Haydee Lira on 76-87-2520Zeofmftihad (Bld) [#/Vol]1.2 10*3/uL1.00-4.8 [facility] HospitalLymphocytes/100 WBC Auto (Bld)Ordered By: Haydee Lira on 35-57-8593Stgobxcatmd/100 WBC (Bld)19.5 %.[facility] Auto (RBC) [Entitic mass]Ordered By: Haydee Lira on 87-81-7519XWM (RBC) [Entitic mass]30.2 pg27.5-35.2FPremier Health Upper Valley Medical CenterHC Auto (RBC) [Mass/Vol]Ordered By: Haydee Lira on 37-78-7906VDQG (RBC) [Mass/Vol]34.6 g/dL32.5-35.6FMansfield HospitalMCV Auto (RBC) [Entitic vol]Ordered By: Haydee Lira on 03-12-2023 MCV (RBC) [Entitic vol]87.2 fL83.5-101[facility] HospitalMonocytes Auto (Bld) [#/Vol]Ordered By: Haydee Lira on 81-73-0984Hbuhrnein (Bld) [#/Vol]0.3 10*3/uL0.0-0.8[facility] HospitalMonocytes/100 WBC Auto (Bld)Ordered By: Haydee Lira on 55-47-9952Hijoxjzub/100 WBC (Bld)5.0 %. [facility] HospitalNeutrophils Auto (Bld) [#/Vol]Ordered By: Haydee Lira on 95-49-3659Ggjjejkxunm (Bld) [#/Vol]4.4 10*3/uL1.8-7.7 [facility] HospitalNeutrophils/100 WBC Auto (Bld)Ordered By: Haydee Lira on 74-95-7599Zspcwjszzob/100 WBC (Bld)71.5 %.[facility] HospitalNo Panel InformationOrdered By: Haydee Lira on 01-01-2416Cgyepvxvr GFR (CKD-EPI)17.210 mL/MinCorey Hospital Pharmacy Creatinine Clearance (Chem25.39[facility] HospitalProtein Electrophoresis M-SpikeNot observed g/dLNot ObservedCorey HospitalProtein Electrophoresis NoteSee comment.[facility] Comment on above:Protein electrophoresis scan will follow via computer,mail, or transportation planning technician delivery.Performed at: [address] [id number] Director: Pablito Alexander PhD, Phone: [phone] ImmunofixationComment:.[facility] HospitalComment on above: Presence of monoclonal protein is unclear at this time. Suggestrepeat in 3 to 6 months if clinically indicated.Urine Random Prot Electrophor NoteSee comment. [facility] HospitalComment on above:Protein electrophoresis scan will follow via computer,mail, or transportation planning technician delivery.Performed at: [address] [id number] Director: Pablito Alexander PhD, Phone: [phone] erythrocytes [Presence] in Blood by Automated count Ordered By: Haydee Lira on 07-36-6313Qgyydbnlo RBC Auto Ql (Bld)0.0 /100{WBC}0-0.5FMansfield HospitalPlatelet mean volume Auto (Bld) [Entitic vol]Ordered By: Haydee Lira on 07-33-0536Yqphmdrc mean volume (Bld) [Entitic vol]8.4 fL6.6-10.1FMansfield HospitalPlatelets Auto (Bld) [#/Vol]Ordered By: Haydee Lira on 06-31-9491Njmmankxq (Bld) [#/Vol]175 10*3/gX805-883QzmoccjtsCorey HospitalPotassium [Moles/volume] in Serum or PlasmaOrdered By: Haydee Lira on 03-12-2023 Potassium [Moles/Vol]4.4 mmol/L3.5-5.1FMansfield HospitalProtein [Mass/volume] in Serum or PlasmaOrdered By: Haydee Lira on 03-12-2023 Protein [Mass/Vol]6.0 g/dL6.4-8.9[facility] HospitalProtein [Mass/Vol]5.7 g/dL6.0-8.5FMansfield HospitalProtein [Mass/volume] in UrineOrdered By: Haydee Lira on 02-90-7729Ihtrebf (U) [Mass/Vol]468.8 mg/dLNot Estab.[facility] HospitalComment on above:Results confirmed ondilution.Protein.monoclonal/Protein.total in 24 hour Urine by ElectrophoresisOrdered By: Haydee Lira on 14-71-9345Jjogiqf.monoclonal Elph (24H U) [Mass fraction]Not observed %Not ObservedCorey HospitalRBC Auto (Bld) [#/Vol]Ordered By: Haydee Lira on 76-21-1780OWL (Bld) [#/Vol]3.15 10*6/uL3.90-5.60[facility] Hospitalerum globulin measurement (mass/volume)Ordered By: Haydee Lira on 03-12-2023 Globulin (S) [Mass/Vol]2.8 g/dL2.2-3.9[facility] Hospitalerum or plasma albumin/globulin mass ratioOrdered By: Haydee Lira on 03-12-2023 Albumin/Globulin [Mass ratio]1.3 {ratio}[facility] Albumin/Globulin [Mass ratio]1.0 {ratio}0.7-1.7FMansfield Hospital Serum or plasma alpha 1 globulin measurement by electrophoresis (mass/volume) Ordered By: Haydee Lira on 73-10-8635Rsjjw 1 globulin Elph [Mass/Vol]0.2 g/dL0.0-0.4FMary Rutan Hospitalerum or plasma alpha 2 globulin measurement by electrophoresis (mass/volume)Ordered By: Haydee Lira on 00-77-5989Ucowa 2 globulin Elph [Mass/Vol]0.7 g/dL0.4-1.0[facility] Hospitalerum or plasma anion gap determinationOrdered By: Haydee Lira on 37-46-0571Zufyq gap [Moles/Vol]12.6 mmol/L6.0-15.0[facility] Hospitalerum or plasma beta globulin measurement by electrophoresis (mass/volume)Ordered By: Haydee Lira on 33-84-7335Lqdb globulin Elph [Mass/Vol]0.8 g/dL0.7-1.3FMary Rutan Hospitalerum or plasma gamma globulin measurement by electrophoresis (mass/volume)Ordered By: Haydee Lira on 98-09-6312Cbytn globulin Elph [Mass/Vol]1.1 g/dL0.4-1.8 [facility] Hospitalodium [Moles/volume] in Serum or PlasmaOrdered By: Haydee Lira on 86-56-5615Yjrjag [Moles/Vol]136 mmol/E930-612 [facility] HospitalUrea nitrogen [Mass/volume] in Serum or Plasma Ordered By: Haydee Lira on 29-07-6515Mbos nitrogen [Mass/Vol]43 mg/dL 03-12[facility] HospitalUrine alpha 1 globulin/total protein by electrophoresisOrdered By: Haydee Lira on 84-99-0178Wrcmu 1 globulin Elph (U) [Mass fraction]7.3 %.[facility] HospitalUrine alpha 2 globulin/total protein ratio by electrophoresisOrdered By: Haydee Lira on 58-43-5352Mepvj 2 globulin Elph (U) [Mass fraction]6.5 %.[facility] HospitalUrine beta globulin measurement by electrophoresis (mass/volume) Ordered By: Haydee Lira on 51-19-5723Afet globulin Elph (U) [Mass/Vol] 12.5 %.[facility] HospitalWBC Auto (Bld) [#/Vol]Ordered By: Haydee Lira on 70-59-5740PUL (Bld) [#/Vol]6.1 10*3/uL4.1-10.5FMansfield HospitalAlbumin [Mass/volume] in Serum or Plasma by Bromocresol green (BCG) dye binding methoOrdered By: Angel Cook on 65-61-1382Bykdfwm BCG dye [Mass/Vol]3.3 g/dL3.5-5.7FMansfield HospitalCalcium [Mass/volume] in Serum or PlasmaOrdered By: Angel Cook on 01-49-5925Capgtrg [Mass/Vol]7.3 mg/dL8.6-10.3FMansfield HospitalCarbon dioxide, total [Moles/volume] in Serum or PlasmaOrdered By: Angel Georger on 80-49-5015TF7 [Moles/Vol]20.1 mmol/L21.0-31.0[facility] HospitalChloride [Moles/volume] in Serum or PlasmaOrdered By: Angel Cook on 61-02-5775Zwaswthw [Moles/Vol]107 mmol/M54-323PbekbmihqCorey HospitalCreatinine [Mass/volume] in Serum or PlasmaOrdered By: Angel Cook on 51-39-9320Nxrhtaioyp [Mass/Vol]6.60 mg/dL0.70-1.30[facility] HospitalErythrocyte distribution width Auto (RBC) [Ratio]Ordered By: Angel Cook on 02-27-2023 Erythrocyte distribution width (RBC) [Ratio]13.2 %12.0-14.8[facility] HospitalFerritin [Mass/volume] in Serum or PlasmaOrdered By: Angel Cook on 47-23-4361Cxempctd [Mass/Vol]73.2 ng/mL23.9-336.2FMansfield HospitalGlucose [Mass/volume] in Serum or PlasmaOrdered By: Angel Cook on 45-57-0492Cbbivcf [Mass/Vol]173 mg/fA59-459AjznvsfpeCorey Hospital Comment on above:ADA recommended reference rangeRandom Glucose Reference Range is dependent on time and content of last meal. Glucose of more than 200 mg/dL in a nonstressed, ambulatory subject supports the diagnosisof Diabetes Mellitus. Hematocrit Auto (Bld) [Volume fraction]Ordered By: Angel Cook on 02-27-2023 Hematocrit (Bld) [Volume fraction]28.0 %38.8-50.0[facility] HospitalHemoglobin [Mass/volume] in BloodOrdered By: Angel Cook on 02-27-2023 Hemoglobin (Bld) [Mass/Vol]9.3 g/dL13.0-17.0[facility] Hepatitis B virus surface Ag [Presence] in Serum or Plasma by ImmunoassayOrdered By: Angel Cook on 38-07-8786TGY surface Ag IA QlNegativeNegativeCorey HospitalHewhitesburg arh hospitaltis C virus IgG Ab [Presence] in Serum or Plasma by ImmunoassayOrdered By: Angel Cook on 68-40-0666OEN IgG IA QlNon-ReactiveNon ReactiveBerger Hospitaltis C virus RNA [Units/volume] (viral load) in Serum or Plasma by HAO with probOrdered By: Angel Cook on 38-99-0481WNJ RNA HAO+probe QnN/[facility] CenterHewhitesburg arh hospitaltis C virus RNA [log units/volume] (viral load) in Serum or Plasma by HAO withOrdered By: Angel Cook on 37-03-5649JII RNA HAO+probe [Log units/Vol]N/AFMansfield HospitalIron [Mass/volume] in Serum or PlasmaOrdered By: Angel Cook on 50-95-9364Indo [Mass/Vol]64 ug/dW57-536YgcfwknuxCorey HospitalIron binding capacity [Mass/volume] in Serum or PlasmaOrdered By: Angel Cook on 22-51-3749Lsbt binding capacity [Mass/Vol]224 ug/eI639-078DuwcfgkegCorey HospitalIron saturation [Mass Fraction] in Serum or PlasmaOrdered By: Angel Cook on 49-09-9280Hjrk saturation [Mass fraction]28.6 %20-50[facility] HospitalLeukocytes [#/volume] corrected for nucleated erythrocytes in Blood by Automated counOrdered By: Angel Cook on 26-98-0199FLI corrected for nucl RBC Auto (Bld) [#/Vol]5.9 10*3/uL4.1-10.5FPremier Health Upper Valley Medical CenterH Auto (RBC) [Entitic mass]Ordered By: Angel Cook on 02-27-2023 MCH (RBC) [Entitic mass]29.0 pg27.5-35.2FPremier Health Upper Valley Medical CenterHC Auto (RBC) [Mass/Vol]Ordered By: Angel Cook on 36-85-5510IUJI (RBC) [Mass/Vol] 33.4 g/dL32.5-35.6FMansfield HospitalMCV Auto (RBC) [Entitic vol] Ordered By: Angel Cook on 66-41-7812QWQ (RBC) [Entitic vol]86.9 fL83.5-101 [facility] HospitalMagnesium [Mass/volume] in Serum or Plasma Ordered By: Angel Cook on 05-97-3411Cqhaessgp [Mass/Vol]1.7 mg/dL1.9-2.7 [facility] HospitalNo Panel InformationOrdered By: Angel Cook on 84-38-0997Mlcvbsppk GFR (CKD-EPI)10.328 mL/MinCorey Hospital Hepatitis A IgM AntibodyNegativeNegativeCore[facility] Hospital Hepatitis B Core IgM AntibodyNegativeNegativeCore[facility] Hospital Hepatitis C InterpretationSee comment.[facility] HospitalComment on above:Not infected with HCV unless early or acute infection issuspected (which may be delayed in an immunocompromisedindividual), or other evidence exists to indicate HCVinfection.Performed at: [facility] [id number] Director: Pablito Alexander PhD, Phone: [phone] Hepatitis C RNA QuantitativeN/[facility] CenterPharmacy Creatinine Clearance (ChemN/[facility] Medical CenterParathyrin.intact [Mass/volume] in Serum or PlasmaOrdered By: Angel Cook on 02-27-2023 Parathyrin.intact [Mass/Vol]713.5 pg/dJ24-06ClmfmyhjeCorey Hospital Phosphate [Mass/volume] in Serum or PlasmaOrdered By: Angel Cook on 02-27-2023 Phosphate [Mass/Vol]7.2 mg/dL3.7-7.2FMansfield HospitalPlatelet mean volume Auto (Bld) [Entitic vol]Ordered By: Angel Cook on 02-27-2023 Platelet mean volume (Bld) [Entitic vol]8.7 fL6.6-10.1FMansfield HospitalPlatelets Auto (Bld) [#/Vol]Ordered By: Angel Cook on 17-83-9347Vppazabnn (Bld) [#/Vol]134 10*3/lP689-647UllegizrlCorey HospitalPotassium [Moles/volume] in Serum or PlasmaOrdered By: Angel Cook on 19-64-3013Zpmpdmmaq [Moles/Vol]5.1 mmol/L3.5-5.1FMansfield HospitalRBC Auto (Bld) [#/Vol]Ordered By: Angel Cook on 52-01-1268UTV (Bld) [#/Vol]3.22 10*6/uL 3.90-5.60[facility] Hospitalerum or plasma anion gap determinationOrdered By: Angel Cook on 53-39-2797Dgfbt gap [Moles/Vol]13.0 mmol/L6.0-15.0[facility] Hospitalodium [Moles/volume] in Serum or PlasmaOrdered By: Angel Cook on 28-99-4923Odlvda [Moles/Vol]135 mmol/T018-371 [facility] HospitalTransferrin [Mass/volume] in Serum or Plasma Ordered By: Angel Cook on 35-52-0573Arrflexumoo [Mass/Vol]160 mg/cV747-970 [facility] HospitalUrea nitrogen [Mass/volume] in Serum or Plasma Ordered By: Angel Cook on 91-72-4489Jbip nitrogen [Mass/Vol]78 mg/dL7-25 [facility] HospitalVitamin D+Metabolites [Mass/volume] in Serum or PlasmaOrdered By: Angel Cook on 45-01-3551Qltjmvx D+Metabolites [Mass/Vol]23.7 ng/kG69-436UmholkpzuCorey HospitalComment on above:VITAMIN D STATUS 25(OH)VITAMIN D RANGE (ng/mL) Deficient <20 Insufficient 20 to <75Kqvixpzrjl87 to 100Reference: Vanna MF,Chemo NC, Sergey SIMENTAL, et al. Evaluation,treatment, and prevention of vitamin D deficiency; an Endocrine Society clinical practice guideline. JCEM. 2010; 96(7):1911-30.Office Visit (Cardiology)on 59-57-0733Kcycsn-up visitDiagnoses/Problems Assessed ASHD (arteriosclerotic heart disease) (414.00) (I25.10) History of ischemic cardiomyopathy (V45.89) (Z86.79) Ischemic cardiomyopathy (414.8) (I25.5) Chronic kidney disease (CKD) (585.9) (N18.9) Diabetes mellitus (250.00) (E11.9) Essential hypertension, benign (401.1) (I10) Hyperlipidemia (272.4) (E78.5) Current every day smoker (305.1) (F17.200) 1 Pack of cigarettes daily Orders ASHD (arteriosclerotic heart disease), CHF (congestive heart failure), History of VA (myocardial infarction) Renew: Aspirin 81 MG Oral [...] we can help. You may also call [phone]; Status:Complete - Retrospective Authorization; Done: [id number] Tobacco Use Screening; Status:Complete; Done: [id number] Patient Instructions Please bring all medicines, vitamins, and herbal supplements with you when you come to the office. Prescriptions will not be filled unless you are compliant with your follow up appointments or have a follow up appointment scheduled as per instruction of your physician. Refills should be requested at the time of your visit. O/V 6 MONTHS Chief Complaint YOEL TAMAYO is being seen for follow-up of a hospitalization for f/u cath results. 37-year-old gentleman returns for follow-up following recent completion of his revascularization procedures, most recently the proximal RCA with drug-eluting stents. He has had previous anterior VA with revascularization of the LAD. He has [...] TABLET UNDER THE TONGUE EVERY 5 MINUTES UPTO 3 DOSES NEEDED FOR CHEST PAIN. Omeprazole 20 MG Oral Capsule Delayed ReleaseTAKE 1 CAPSULE Daily Allergies Medication No Known Drug Allergies Recorded By: Allyson Xiong; 11/24/2021 1:09:16 PM Social History Problems Current every day smoker (305.1) (F17.200) 1 Pack of cigarettes daily Daily caffeine consumption, 2-3 servings a day Illicit drug use (305.90) (F19.90) medical No alcohol use Vitals Vital Signs Recorded: [id number] 09:21AM Heart Rate78, R Radial Zrlpiyii057, RUE, Sitting Tpvtdttfi62, RUE, Sitting Height6 ft Rggxgh122 lb BMI Fmocxatpav05.43 kg/m2 BSA Calculated1.93 Tobacco Usea) Yes Patient [...] skin turgor . Psychiatr (more content not included)...NormalUH TouchworksTobacco Screening.on 60-25-7171Njku risk assessmentc) Not medically indicatedJefferson Healthcare Hospital [facility] [place] [address] DO Work Phone: Tobacco use status CPHSa) Yes-[facility] [place] [address] DO Work Phone: Tobacco Screening.Yes-[facility]-[place] [address] DO Work Phone: Activated partial thromboplastin time (aPTT) in platelet poor plasma by coagulation aOrdered By: Denilson Gomez on 01-63-8504kYZP Coag (PPP) [Time]40.7 s25.1-36.5FMansfield HospitalBasophils Auto (Bld) [#/Vol]Ordered By: Denilson Gomez on 28-00-7095Lxehympiw (Bld) [#/Vol]0.1 10*3/uL0.0-0.2FMansfield HospitalBasophils/100 WBC Auto (Bld) Ordered By: Denilson Gomez on 99-67-8235Xxvuvvomm/100 WBC (Bld)1.7 %.[facility] HospitalCarbon dioxide, total [Moles/volume] in Serum or Plasma Ordered By: Denilson Gomez on 17-00-0977LR8 [Moles/Vol]22.2 mmol/L21.0-31.0[facility] HospitalChloride [Moles/volume] in Serum or PlasmaOrdered By: Denilson Gomez 67-25-9876Hpxefgyj [Moles/Vol]106 mmol/Q21-414YybisnpymCorey HospitalCholesterol [Mass/volume] in Serum or PlasmaOrdered By: Denilson Gomez on 61-00-5381Lbeoulrvdik [Mass/Vol]144 mg/jH881-537BxewrjomtCorey HospitalComment on above:Chol less than 200 mg/dl low riskChol 201-239 mg/dl borderline riskChol 240 mg/dl and greater high riskCholesterol in LDL Calc [Mass/Vol]Ordered By: Denilson Gomez on 45-08-0682Crkjsqwqhap in LDL [Mass/Vol]95 mg/dL0-100Core[facility] HospitalComment on above:LDL ATP III CLASSIFICATIONLDL less than 100 mg/dL OptimalLDL 100-129 mg/dL Near or above vhgbeweNIJ082-622 mg/dL Borderline highLDL 160-189 mg/dL HighLDL greater than 189 mg/dL Very highCholesterol in VLDL Calc [Mass/Vol]Ordered By: Denilson Gomez on 34-29-9820Tvmuenxxpai in VLDL [Mass/Vol]20 mg/dLCorey HospitalCreatinine [Mass/volume] in Serum or PlasmaOrdered By: Denilson Gomez on 16-25-2852Blbgjiejbb [Mass/Vol]5.36 mg/dL0.70-1.30Core[facility] HospitalEosinophils Auto (Bld) [#/Vol]Ordered By: Denilson Gomez on 01-31-2023 Eosinophils (Bld) [#/Vol]0.2 10*3/uL0.0-0.45[facility] Eosinophils/100 WBC Auto (Bld)Ordered By: Denilson Gomez on 53-73-4584Dhfcrpbpmtc/100 WBC (Bld)2.9 %.[facility]y HospitalErythrocyte distribution width Auto (RBC) [Ratio]Ordered By: Denilson Gomez on 69-71-2376Zxswuaeneah distribution width (RBC) [Ratio]12.9 %12.0-14.8Core[facility] HospitalHematocrit Auto (Bld) [Volume fraction]Ordered By: Denilson Gomez on 54-26-8051Ubdynvdejs (Bld) [Volume fraction]26.0 %38.8-50.0Core[facility] HospitalHemoglobin [Mass/volume] in BloodOrdered By: Denilson Gomez on 79-75-0787Gozhmmeawm (Bld) [Mass/Vol]9.1 g/dL13.0-17.0Core[facility] HospitalLaboratory - Chemistry and Chemistry - challengeon 12-86-1256Qrfohrcqalq [Mass/Vol]144\S\144 Tqwkfx434-677AB-[place]rr[place] amBXus[place] 250 DO Work Phone: Comment on above:Chol less than 200 mg/dl low risk Chol 201-239 mg/dl borderline risk Chol 240 mg/dl and greater high risk Cholesterol in LDL [Mass/Vol]95\S\[id number]-Vdkuu [place] [employer] 250 DO Work Phone: Comment on above:LDL ATP III CLASSIFICATION LDL less than 100 mg/dL Optimal LDL 100-129 mg/dL Near or above optimal LDL 130-159 mg/dL Borderline high LDL 160-189 mg/dL High LDL greater than 189 mg/dL Very high Laboratory - CoagulationOrdered By: Denilson Gomez on [id number] Coag (PPP) [Time] 12.7 s9.0-12.9[facility] HospitalLeukocytes [#/volume] corrected for nucleated erythrocytes in Blood by Automated counOrdered By: Denilson Gomez on [id number] corrected for nucl RBC Auto (Bld) [#/Vol]6.4 10*3/uL4.1-10.5 [facility] HospitalLymphocytes Auto (Bld) [#/Vol]Ordered By: Denilson Gomez on 09-61-8356Ssmvdjtercn (Bld) [#/Vol]1.0 10*3/uL1.00-4.8Corey HospitalLymphocytes/100 WBC Auto (Bld)Ordered By: Denilson Gomez on 51-91-7912Jdkqttvpooo/100 WBC (Bld)16.1 %.[facility]H Auto (RBC) [Entitic mass]Ordered By: Denilson Gomez on 30-21-0246ZWS (RBC) [Entitic mass]30.1 pg27.5-35.2FMansfield HospitalMCHC Auto (RBC) [Mass/Vol] Ordered By: Denilson Gomez on 90-44-7194QYXE (RBC) [Mass/Vol]34.9 g/dL32.5-35.6 [facility] HospitalMCV Auto (RBC) [Entitic vol]Ordered By: Denilson Gomez on 12-77-3628OPK (RBC) [Entitic vol]86.3 fL83.5-101[facility] HospitalMonocytes Auto (Bld) [#/Vol]Ordered By: Denilson Gomez on 01-31-2023 Monocytes (Bld) [#/Vol]0.3 10*3/uL0.0-0.8[facility] Monocytes/100 WBC Auto (Bld)Ordered By: Denilson Gomez on 29-64-8528Kfrogyvis/100 WBC (Bld)4.5 %.[facility] HospitalNeutrophils Auto (Bld) [#/Vol] Ordered By: Denilson Gomez on 32-57-8603Vqzdpnxuocj (Bld) [#/Vol]4.8 10*3/uL1.8-7.7 [facility] HospitalNeutrophils/100 WBC Auto (Bld)Ordered By: Denilson Gomez on 60-65-0029Kjmkvvcnjns/100 WBC (Bld)74.8 %.[facility] HospitalNo Panel InformationOrdered By: Denilson Gomez on 87-67-2257Zsmgtzfog GFR (CKD-EPI)13.256 mL/MinCorey HospitalPharmacy Creatinine Clearance (ChemN/AFMansfield HospitalNo Panel Informationon .1\S\0.0Linlps6.0-0.2MP-[facility] [address] DO Work Phone: Comment on above:PERFORMED BY:[facility]GE JIMENEZMEMPH[place], [place] [phone] MEDICAL DIRECTORLEVY THOMASON M.D.0.2\S\0.3Edibow4.0-0.45[facility] 250 DO Work Phone: [phone]\S\0.7Vurunj2.0-0.8[facility] [address] DO Work Phone: [phone]\S\1.1Madrht5.00-4.8[facility] 250 DO Work Phone: [phone]\S\4.8Ohbeqr1.8-7.7[facility] 250 DO Work Phone: [phone]\S\0.5Pdgimy4-1.5[facility] [address] DO Work Phone: [phone]\S\1.7Normal.[facility] [address] DO Work Phone: [phone]\S\2.9Normal.[facility] [address] DO Work Phone: [phone]\S\4.5Normal.[facility] [address] DO Work Phone: [phone]\S\16.1Normal.[facility] 250 DO Work Phone: [phone]\S\74.8Normal.[facility] [address] DO Work Phone: [phone]\S\8.2Tbbzia9.6-10.1[facility] 250 DO Work Phone: [phone]\S\339Touwxe045-821ZH-Qgkys [place] [facility] 250 DO Work Phone: [phone]\S\12.8Lfvehl56.0-14.8[facility] 250 DO Work Phone: [phone]\S\34.1Wrhhab47.5-35.6[facility] 250 DO Work Phone: [phone]\S\30.9Ewhklp26.5-35.2[facility] 250 DO Work Phone: [phone]\S\86.5Luhylt60.4-452BU-Udieg [place] [facility] 250 DO Work Phone: [phone]\S\26.0below low gjyzpghkk67.8-50.0[facility] 250 DO Work Phone: [phone]\S\9.1below low hzlqtywvq91.0-17.0[facility] [address] DO Work Phone: [phone]\S\3.02below low threshold3.90-5.60[facility] 250 DO Work Phone: [phone]\S\6.0Phuqvg1.1-10.5[facility] 250 DO Work Phone: [phone]\S\40.7above high aisnzwelb32.1-36.5[facility] [address] DO Work Phone: Comment on above:PERFORMED BY:[facility] KAVYAEsaÓSCARMEMPHIS, [place] [phone] MEDICAL DIRECTORLEVY THOMASON M.D.1.1\S\1.1NormalMP-[facility] [address] DO Work Phone: Comment on above:INR Therapeutic Range A) Pre- and Peroperative OAT started two weeks before surgery. NOT HIP SURGERY: 1.5 - 2.5 HIP SURGERY: 2 - 3 B) Primary and secondary prevention of venous THROMBOSIS: 2 - 3 C) Active venous thrombosis, pulmonary embolism and prevention of recurrent venous thrombosis: 2 - 3 D) Prevention of arterial thromboembolism including patients with mechanical heart valves: 3 - 4.512.7\S\12.2Qhugnn2.0-12.9[facility] [address] DO Work Phone: [phone]\S\12.4Ecqntb4.0-15.0[facility] [address] DO Work Phone: [phone]\S\22.5Bbetqg01.0-31.0[facility] [address] DO Work Phone: [phone]\S\470Magsyv28-589RT-Bfjou [place] [facility] 250 DO Work Phone: [phone]\S\5.7Odwpst1.5-5.1[facility] [address] DO Work Phone: [phone]\S\474Qmpmpy954-238WU-Rqwlq [place] [facility] [address] DO Work Phone: [phone]\S\71above high pgsspywfc7-93SD-Irjpi [place] [facility]- [facility] [address] DO Work Phone: [phone]\S\13.256NormalMP-[facility] [address] DO Work Phone: [phone]\S\5.36above high threshold0.70-1.30[facility] 250 DO Work Phone: [phone]\S\5.1Normal<5.0[facility] 250 DO Work Phone: Comment on above:PERFORMED BY:[facility] BARAHONAAngiÓSCARMEMPHIS, [place] [phone] MEDICAL DIRECTORLEVY THOMASON M.D.20\S\20NormalMP-[facility] [address] DO Work Phone: [phone]\S\600Jimlpe2-337ZL-Ahvxi [place] [facility] [address] DO Work Phone: Comment on above:TRIG ATP III CLASSIFICATION TRIG less than 150 mg/dL Normal TRIG 150-199 mg/dL Borderline high SXHI664-282 mg/dL High TRIG greater than 500 mg/dL Very high Standard traceable to the Center for Disease Conrtrol and Prevention (CDC) test method.28\S\42Kpqtql61-48OS-Gwmwu [place] [facility] 250 DO Work Phone: Comment on above:HDL CHOL ATP-III CLASSIFICATION Cardiovascular Risk HDL > or equal to 60 mg/dL LOW HDL < 40 mg/dL HIGHNucleated erythrocytes [Presence] in Blood by Automated countOrdered By: Denilson Gomez on 51-37-7382Pfexosbcm RBC Auto Ql (Bld)0.0 /100{WBC}0-0.5FMansfield HospitalPlatelet mean volume Auto (Bld) [Entitic vol]Ordered By: Denilson Gomez on 99-33-8574Owpnzlxb mean volume (Bld) [Entitic vol]8.5 fL6.6-10.1FMansfield HospitalPlatelet poor plasma international normalized ratio (INR) by coagulation assay (relatOrdered By: Denilson Gomez on 74-49-5309NYE Coag (PPP) [Relative time]1.1 {INR}Corey HospitalComment on above:INR Therapeutic Range A) Pre- and Peroperative OAT started two weeks before surgery. NOT HIP SURGERY: 1.5 - 2.5 HIP SURGERY: 2 - 3B) Primary and secondary prevention of venous THROMBOSIS: 2 - 3C) Active venous thrombosis, pulmonary embolismand prevention of recurrent venous thrombosis: 2 - 3D) Prevention of arterial thromboembolismincluding patients with mechanical heart valves: 3 - 4.5Platelets Auto (Bld) [#/Vol]Ordered By: Denilson Gomez on 68-45-0060Oeuvaewkn (Bld) [#/Vol]159 10*3/wX048-376HqifjhpxcCorey HospitalPotassium [Moles/volume] in Serum or PlasmaOrdered By: Denilson Gomez on 91-00-8213Zptdldvft [Moles/Vol]5.0 mmol/L 3.5-5.1FMansfield HospitalRBC Auto (Bld) [#/Vol]Ordered By: Denilson Gomez on 99-16-7499AGR (Bld) [#/Vol]3.02 10*6/uL3.90-5.60[facility]uder [facility] Hospitalerum or plasma anion gap determinationOrdered By: Denilson Gomez on 56-60-7519Bxyhj gap [Moles/Vol]12.8 mmol/L6.0-15.0Mag[facility]uder Memorial Hospitalerum or plasma high density lipoprotein (HDL) cholesterol measurement Ordered By: Denilson Gomez on 99-35-5921Cfqjdecnlxi in HDL [Mass/Vol]28 mg/dL23-92 Corey HospitalComment on above:HDL CHOL ATP-III CLASSIFICATION Cardiovascular RiskHDL > or equal to 60 mg/dL LOWHDL < 40 mg/dL HIGHSerum or plasma total cholesterol/high density lipoprotein (HDL) cholesterol mass ratOrdered By: Denilson Gomez on 90-89-2124Okstrbeunki.total/Cholesterol in HDL [Mass ratio]5.1 {ratio}<5.0[facility] Hospitalodium [Moles/volume] in Serum or PlasmaOrdered By: Denilson Gomez on 14-65-0575Sxcxyx [Moles/Vol]136 mmol/B032-920TccbesahzCorey HospitalTriglyceride [Mass/volume] in Serum or PlasmaOrdered By: Denilson Gomez on 94-55-6436Jcjzmorlhcyt [Mass/Vol]103 mg/dL0-149Corey HospitalComment on above:TRIG ATP III CLASSIFICATIONTRIG less than 150 mg/dL NormalTRIG 150-199 mg/dL Borderline highTRIG 200-500 mg/dL High TRIG greater than 500 mg/dL Very highStandard traceable to the Center for Disease Conrtrol and Prevention (CDC) test method.Urea nitrogen [Mass/volume] in Serum or PlasmaOrdered By: Denilson Gomez on 71-02-6374Fcqa nitrogen [Mass/Vol]71 mg/dL7-25Corey HospitalWBC Auto (Bld) [#/Vol]Ordered By: Denilson Gomez on 22-75-9870QDK (Bld) [#/Vol] 6.4 10*3/uL4.1-10.5FMansfield HospitalOffice Visit (Cardiology)on 23-31-3167Wtmvrl-up visitDiagnoses/Problems Assessed ASHD (arteriosclerotic heart disease) (414.00) (I25.10) History of VA (myocardial infarction) (412) (I25.2) NSTEMI, initial episode of care (410.71) (I21.4) Chronic kidney disease (CKD) (585.9) (N18.9) CHF (congestive heart failure) (428.0) (I50.9) Diabetes mellitus (250.00) (E11.9) Body mass index (BMI) of 21.0 to 21.9 in adult (V85.1) (Z68.21) History of ischemic cardiomyopathy (V45.89) (Z86.79) Orders ASHD (arteriosclerotic heart disease), CHF (congestive heart failure), History of VA (myocardial infarction), NSTEMI, initial episode of care Cardiac Catherization; Status:Active - Retrospective Authorization; Requested for:[id number]; ASHD (arteriosclerotic heart disease), Hyperlipidemia, NSTEMI, initial [...] testing completed Cath order Chief Complaint YOEL TAMAYO is being seen for discuss possible ptca. 37-year-old gentleman with severe ischemic cardiomyopathy, prior anterior VA with revascularizationof the LAD, more recently hospitalized for chest [...] informed decision-making process performed for 30 minutes thismorning with the patient including progression of renal [...] TABLET UNDER THE TONGUE EVERY 5 MINUTES UPTO 3 DOSES NEEDED FOR CHEST PAIN. Omeprazole [...] negative for complaint. Vitals Vital Signs Recorded: [id number] 10:04AM Heart Rate60, R Radial Tyzjyjzc785, RUE, Sitting Kcpdilusp65, RUE, Sitting Height6 ft Tcazda390 lb BMI Ftzdalfurt50.7 kg/m2 BSA Calculated1.94 Tobacco Usea) Yes Patient [...] murmurs , pedal pu (more content not included)...NormalUH TouchworksTobacco Screening.on 87-56-2526Gfhd risk assessmenta) No falls within the last yearJeff[facility] 250 DO Work Phone: Tobacco use status CPHSa) YesJefferson Healthcare Hospital [facility] 250 DO Work Phone: Tobacco Screening.YesJefferson Healthcare Hospital HeartRoverTownGilchrist 250 DO Work Phone: Basophils Auto (Bld) [#/Vol]Ordered By: Kim Renteria on 26-66-1370Rkawbmfdy (Bld) [#/Vol]0.1 10*3/uL0.0-0.2FMansfield HospitalBasophils/100 WBC Auto (Bld)Ordered By: Kim Renteria on 01-09-2023 Basophils/100 WBC (Bld)1.4 %.[facility] HospitalCalcium [Mass/volume] in Serum or PlasmaOrdered By: Kim Renteria on 83-14-2027Tfehzbx [Mass/Vol]7.8 mg/dL8.6-10.3FMansfield HospitalCarbon dioxide, total [Moles/volume] in Serum or PlasmaOrdered By: Kim Renteria on 01-09-2023 CO2 [Moles/Vol]21.0 mmol/L21.0-31.0[facility] HospitalChloride [Moles/volume] in Serum or PlasmaOrdered By: Kim Renteria on 65-08-5170Tcgbeedu [Moles/Vol]108 mmol/H49-584ZvdyynrshCorey HospitalCreatinine [Mass/volume] in Serum or PlasmaOrdered By: Kim Retneria on 01-09-2023 Creatinine [Mass/Vol]4.82 mg/dL0.70-1.30[facility] Eosinophils Auto (Bld) [#/Vol]Ordered By: Kim Renteria on 96-02-8492Excidnjzeco (Bld) [#/Vol]0.2 10*3/uL0.0-0.45[facility] Eosinophils/100 WBC Auto (Bld)Ordered By: Kim Renteria on 01-09-2023 Eosinophils/100 WBC (Bld)2.7 %.[facility]y HospitalErythrocyte distribution width Auto (RBC) [Ratio]Ordered By: Kim Renteria on 01-09-2023 Erythrocyte distribution width (RBC) [Ratio]13.4 %12.0-14.8Corey HospitalGlucose Glucometer (BldC) [Mass/Vol]Ordered By: Justino Boss on 00-70-6367Xvaormk [Mass/Vol]184 mg/dLCorey HospitalComment on above:Random Glucose Reference Range is dependent on time and content of last meal. Glucose of more than 200 mg/dL in a nonstressed, ambulatory subject supports the diagnosis of Diabetes Mellitus.Glucose [Mass/volume] in Serum or PlasmaOrdered By: Kim Renteria on 90-06-7358Bxzbrjn [Mass/Vol]176 mg/yL46-801 Corey HospitalComment on above:ADA recommended reference rangeRandom Glucose Reference Range is dependent on time and content of last meal. Glucose of more than 200 mg/dL in a nonstressed, ambulatory subject supports the diagnosisof Diabetes Mellitus.Hematocrit Auto (Bld) [Volume fraction]Ordered By: Kim Renteria on 15-07-5822Wtyhmchgoc (Bld) [Volume fraction]24.7 %38.8-50.0Core[facility] HospitalHemoglobin [Mass/volume] in BloodOrdered By: Kim Renteria on 70-07-7403Cjglgdpppe (Bld) [Mass/Vol]8.7 g/dL13.0-17.0Corey HospitalLeukocytes [#/volume] corrected for nucleated erythrocytes in Blood by Automated coun Ordered By: Kim Renteria on 02-95-1428EDH corrected for nucl RBC Auto (Bld) [#/Vol]6.7 10*3/uL4.1-10.5FMansfield HospitalLymphocytes Auto (Bld) [#/Vol]Ordered By: Kim Renteria on 48-24-6333Jilhliurwjg (Bld) [#/Vol]1.0 10*3/uL1.00-4.8[facility]y HospitalLymphocytes/100 WBC Auto (Bld) Ordered By: Kim Renteria on 54-84-9264Hudzuvqfmof/100 WBC (Bld)14.8 %.[facility] HospitalH Auto (RBC) [Entitic mass]Ordered By: Kim Renteria on 93-43-9233MGS (RBC) [Entitic mass]30.6 pg27.5-35.2FMansfield HospitalMCHC Auto (RBC) [Mass/Vol]Ordered By: Kim Renteria on 00-62-8004BOYC (RBC) [Mass/Vol]35.2 g/dL32.5-35.6FMansfield HospitalMCV Auto (RBC) [Entitic vol]Ordered By: Kim Renteria on 15-27-6948ZNC (RBC) [Entitic vol]87.0 fL83.5-101Core[facility] HospitalMonocytes Auto (Bld) [#/Vol] Ordered By: Kim Renteria on 51-34-8595Vpawldfzx (Bld) [#/Vol]0.5 10*3/uL0.0-0.8 Corey HospitalMonocytes/100 WBC Auto (Bld)Ordered By: Kim Renteria on 77-34-2348Ybcdcdiwx/100 WBC (Bld)7.2 %.[facility]y HospitalNeutrophils Auto (Bld) [#/Vol]Ordered By: Kim Renteria on 01-09-2023 Neutrophils (Bld) [#/Vol]5.0 10*3/uL1.8-7.7FMansfield Hospital Neutrophils/100 WBC Auto (Bld)Ordered By: Kim Renteria on 01-09-2023 Neutrophils/100 WBC (Bld)73.9 %.[facility] HospitalNo Panel InformationOrdered By: Justino Boss on 42-59-4915Kewubbw Glucose CommentGlu2: cleaned meterCorey HospitalNo Panel InformationOrdered By: Kim Renteria on 37-01-2367Ktnkbequc GFR (CKD-EPI)15.059 mL/MinCorey HospitalPharmacy Creatinine Clearance (Chem22.44Corey HospitalNucleated erythrocytes [Presence] in Blood by Automated countOrdered By: Kim Renteria on 98-70-9013Gjidiprxz RBC Auto Ql (Bld)0.0 /100{WBC}0-0.5FMansfield HospitalPlatelet mean volume Auto (Bld) [Entitic vol]Ordered By: Kim Renteria on 35-67-9309Ukqiigwp mean volume (Bld) [Entitic vol]7.9 fL6.6-10.1FMansfield HospitalPlatelets Auto (Bld) [#/Vol]Ordered By: Kim Renteria on 95-42-9559Gchmqviza (Bld) [#/Vol]207 10*3/uL 150-450Corey HospitalPotassium [Moles/volume] in Serum or PlasmaOrdered By: Kim Renteria on 22-20-1389Xwgqhqycv [Moles/Vol]4.2 mmol/L 3.5-5.1FMansfield HospitalRBC Auto (Bld) [#/Vol]Ordered By: Kim Renteria on 32-80-1624MRE (Bld) [#/Vol]2.84 10*6/uL3.90-5.60[facility] Hospitalerum or plasma anion gap determinationOrdered By: Kim Renteria on 06-62-8571Kryks gap [Moles/Vol]12.2 mmol/L6.0-15.0[facility] Hospitalodium [Moles/volume] in Serum or PlasmaOrdered By: Kim Renteria on 44-30-6503Jskmfi [Moles/Vol]137 mmol/D868-749BetkcbdmhCorey Hospital Troponin I.cardiac [Mass/volume] in Serum or Plasma by Detection limit <= 0.01 ng/Ordered By: Kim Renteria on 43-55-6271Ofghyfkm I.cardiac DL <= 0.01 ng/mL [Mass/Vol]25.1 pg/mL0.0-20.0Corey HospitalUrea nitrogen [Mass/volume] in Serum or PlasmaOrdered By: Kim Renteria on 46-97-8848Xnoq nitrogen [Mass/Vol]65 mg/dL7-25Corey HospitalWBC Auto (Bld) [#/Vol]Ordered By: Kim Renteria on 21-61-7210VZP (Bld) [#/Vol]6.7 10*3/uL 4.1-10.5FMansfield HospitalAlbumin [Mass/volume] in Serum or Plasma by Bromocresol green (BCG) dye binding methoOrdered By: Angel Cook on 72-95-3851Zalsqgv BCG dye [Mass/Vol]3.4 g/dL3.5-5.7FMansfield HospitalCalcium [Mass/volume] in Serum or PlasmaOrdered By: Angel Cook on 57-57-5721Yzrngfb [Mass/Vol]8.0 mg/dL8.6-10.3FMansfield Hospital Carbon dioxide, total [Moles/volume] in Serum or PlasmaOrdered By: Angel Cook on 73-20-9210HR7 [Moles/Vol]21.4 mmol/L21.0-31.0Corey HospitalChloride [Moles/volume] in Serum or PlasmaOrdered By: Angel Joyce on 46-29-2216Qerjpssv [Moles/Vol]104 mmol/P00-669TkbznwnmnCorey Hospital Creatinine [Mass/volume] in Serum or PlasmaOrdered By: Angel Cook on 12-25-2022 Creatinine [Mass/Vol]4.68 mg/dL0.70-1.30[facility] Erythrocyte distribution width Auto (RBC) [Ratio]Ordered By: Angel Cook on 29-48-6931Afqdbqpgtrh distribution width (RBC) [Ratio]13.4 %12.0-14.8Corey HospitalFerritin [Mass/volume] in Serum or PlasmaOrdered By: Angel Cook on 24-76-4249Taigicpn [Mass/Vol]87.5 ng/mL23.9-336.2FMansfield HospitalGlucose [Mass/volume] in Serum or PlasmaOrdered By: Angel Cook on 51-03-5521Simeeau [Mass/Vol]187 mg/bJ37-875HcvjxbnxiCorey HospitalComment on above:ADA recommended reference rangeRandom Glucose Reference Range is dependent on time and content of last meal. Glucose of more than 200 mg/dL in a nonstressed, ambulatory subject supports the diagnosisof Diabetes Mellitus.Hematocrit Auto (Bld) [Volume fraction]Ordered By: Angel Cook on 15-49-0818Ttgeasnflt (Bld) [Volume fraction]29.0 %38.8-50.0Corey HospitalHemoglobin [Mass/volume] in BloodOrdered By: Angel Cook on 07-52-1830Sdnbwtjqjl (Bld) [Mass/Vol]9.8 g/dL13.0-17.0Corey HospitalIron [Mass/volume] in Serum or PlasmaOrdered By: Angel Cook on 94-92-0579Wzff [Mass/Vol]61 ug/jA32-277OzlgrivhrCorey HospitalIron binding capacity [Mass/volume] in Serum or PlasmaOrdered By: Angel Cook on 16-83-2018Qanm binding capacity [Mass/Vol]237 ug/fV142-857HadecsbhcCorey HospitalIron saturation [Mass Fraction] in Serum or PlasmaOrdered By: Angel Cook on 63-49-8259Fudo saturation [Mass fraction]25.7 %20-50Corey HospitalLeukocytes [#/volume] corrected for nucleated erythrocytes in Blood by Automated counOrdered By: Angel Cook on 36-57-8958AFT corrected for nucl RBC Auto (Bld) [#/Vol]7.4 10*3/uL4.1-10.5FPremier Health Upper Valley Medical CenterH Auto (RBC) [Entitic mass]Ordered By: Angel Cook on 12-25-2022 MCH (RBC) [Entitic mass]29.9 pg27.5-35.2FMansfield HospitalMCHC Auto (RBC) [Mass/Vol]Ordered By: Angel Cook on 40-92-1528ZVBZ (RBC) [Mass/Vol] 33.9 g/dL32.5-35.6FMansfield HospitalMCV Auto (RBC) [Entitic vol] Ordered By: Angel Cook on 89-33-7001ZYB (RBC) [Entitic vol]88.3 fL83.5-101 Corey HospitalNo Panel InformationOrdered By: Angel Cook on 68-32-5203Zundriuae GFR (CKD-EPI)15.601 mL/MinCorey Hospital Pharmacy Creatinine Clearance (ChemN/[facility] Parathyrin.intact [Mass/volume] in Serum or PlasmaOrdered By: Angel Cook on 99-58-0031Bfzihxeuvg.intact [Mass/Vol]468.7 pg/nL02-33AwbjdvegzCorey HospitalPhosphate [Mass/volume] in Serum or PlasmaOrdered By: Angel Cook on 79-20-3728Gsucwhtiy [Mass/Vol]6.0 mg/dL3.7-7.2FMansfield Hospital Platelet mean volume Auto (Bld) [Entitic vol]Ordered By: Angel Cook on 20-82-3150Kfhmysub mean volume (Bld) [Entitic vol]8.4 fL6.6-10.1FMansfield HospitalPlatelets Auto (Bld) [#/Vol]Ordered By: Angel Cook on 41-17-0539Qhbnskkdp (Bld) [#/Vol]160 10*3/fO110-918KofinirvxCorey HospitalPotassium [Moles/volume] in Serum or PlasmaOrdered By: Angel Cook on 76-56-1075Zmoratqdv [Moles/Vol]5.1 mmol/L3.5-5.1FMansfield HospitalRBC Auto (Bld) [#/Vol]Ordered By: Angel Cook on 64-62-9331ZAC (Bld) [#/Vol]3.28 10*6/uL3.90-5.60[facility] Hospitalerum or plasma anion gap determinationOrdered By: Angel Cook on 25-79-8426Kbzih gap [Moles/Vol]13.7 mmol/L6.0-15.0[facility] Hospitalodium [Moles/volume] in Serum or PlasmaOrdered By: Angel Joyce on 44-73-8082Cgbbbf [Moles/Vol]134 mmol/A121-382RjebelvmrCorey HospitalTransferrin [Mass/volume] in Serum or PlasmaOrdered By: Angel Joyce on 98-41-1272Zpnntfwwpqn [Mass/Vol]169 mg/rU030-318KlkevnhdeCorey HospitalUrea nitrogen [Mass/volume] in Serum or PlasmaOrdered By: Angel Joyce on 41-24-3592Bcjk nitrogen [Mass/Vol]57 mg/dL7-25Corey HospitalBasophils Auto (Bld) [#/Vol]Ordered By: Govind Berry on 19-44-9105Ktpfyqaye (Bld) [#/Vol]0.1 10*3/uL0.0-0.2FMansfield HospitalBasophils/100 WBC Auto (Bld) Ordered By: Govind Berry on 69-25-9652Slrirpszf/100 WBC (Bld)1.7 %.Corey HospitalEosinophils Auto (Bld) [#/Vol]Ordered By: Govind Berry on 54-70-6924Iwbaelzsxqf (Bld) [#/Vol]0.2 10*3/uL0.0-0.45Corey HospitalEosinophils/100 WBC Auto (Bld)Ordered By: Govind Berry on 12-18-2022 Eosinophils/100 WBC (Bld)2.5 %.Corey HospitalErythrocyte distribution width Auto (RBC) [Ratio]Ordered By: Govind Berry on 12-18-2022 Erythrocyte distribution width (RBC) [Ratio]14.1 %12.0-14.8Corey HospitalGlucose Glucometer (BldC) [Mass/Vol]Ordered By: Romain Mendoza on 31-06-8870Mvlelbx [Mass/Vol]165 mg/dLCorey Hospital Comment on above:Random Glucose Reference Range is dependent on time and content of last meal. Glucose of more than 200 mg/dL in a nonstressed, ambulatory subject supports the diagnosis of Diabetes Mellitus.Hematocrit Auto (Bld) [Volume fraction]Ordered By: Govind Berry on 62-21-4624Htemouwwcn (Bld) [Volume fraction]27.7 %38.8-50.0Corey HospitalHemoglobin [Mass/volume] in BloodOrdered By: Govind Berry on 27-67-1073Ckudpmgtav (Bld) [Mass/Vol]9.4 g/dL13.0-17.0Corey HospitalLeukocytes [#/volume] corrected for nucleated erythrocytes in Blood by Automated coun Ordered By: Govind Berry on 88-87-3375LJR corrected for nucl RBC Auto (Bld) [#/Vol]8.0 10*3/uL4.1-10.5FMansfield HospitalLymphocytes Auto (Bld) [#/Vol]Ordered By: Govind Berry on 49-32-8637Gtnsotgwzqd (Bld) [#/Vol]1.1 10*3/uL1.00-4.8Corey HospitalLymphocytes/100 WBC Auto (Bld) Ordered By: Govind Berry on 08-03-6046Yjjpysrhmtg/100 WBC (Bld)13.5 %.[facility] HospitalH Auto (RBC) [Entitic mass]Ordered By: Govind Berry on 55-18-2622MUM (RBC) [Entitic mass]30.0 pg27.5-35.2FPremier Health Upper Valley Medical CenterHC Auto (RBC) [Mass/Vol]Ordered By: Govind Berry on 89-78-2679CTMF (RBC) [Mass/Vol]34.0 g/dL32.5-35.6FMansfield HospitalMCV Auto (RBC) [Entitic vol]Ordered By: Govind Berry on 23-13-2715UDL (RBC) [Entitic vol]88.2 fL 83.5-101Corey HospitalMonocytes Auto (Bld) [#/Vol]Ordered By: Govind Berry on 56-67-8950Tukydpsya (Bld) [#/Vol]0.4 10*3/uL0.0-0.8[facility] HospitalMonocytes/100 WBC Auto (Bld)Ordered By: Govind Berry on 82-31-2362Eqcfhlxfj/100 WBC (Bld)5.1 %.[facility] Neutrophils Auto (Bld) [#/Vol]Ordered By: Govind Berry on 08-43-2610Kvxuziyblys (Bld) [#/Vol]6.2 10*3/uL1.8-7.7FMansfield HospitalNeutrophils/100 WBC Auto (Bld)Ordered By: Govind Berry on 55-54-8087Mxxatsbfhld/100 WBC (Bld)77.2 %.[facility] HospitalNo Panel InformationOrdered By: Romain Mendoza on 61-56-0997Kzvtblh Glucose CommentGlu2: cleaned meterCorey HospitalNucleated erythrocytes [Presence] in Blood by Automated countOrdered By: Govind Berry on 33-75-7447Nrsoqfzld RBC Auto Ql (Bld)0.1 /100{WBC}0-0.5FMansfield HospitalPlatelet mean volume Auto (Bld) [Entitic vol]Ordered By: Govind Berry on 43-92-3026Smkavgqq mean volume (Bld) [Entitic vol]8.0 fL6.6-10.1FMansfield HospitalPlatelets Auto (Bld) [#/Vol]Ordered By: Govind Berry on 48-67-5335Agztavayd (Bld) [#/Vol]167 10*3/uL 150-450[facility] HospitalPotassium [Moles/volume] in Serum or PlasmaOrdered By: Yordy Garg on 12-09-3490Nilvwzplu [Moles/Vol]4.9 mmol/L 3.5-5.1FMansfield HospitalRBC Auto (Bld) [#/Vol]Ordered By: Govind Berry on 75-53-1650MOS (Bld) [#/Vol]3.15 10*6/uL3.90-5.60Core[facility] HospitalWBC Auto (Bld) [#/Vol]Ordered By: Govind Berry on 55-84-8003VIC (Bld) [#/Vol]8.0 10*3/uL4.1-10.5FMansfield HospitalAlbumin [Mass/volume] in Serum or Plasma by Bromocresol green (BCG) dye binding metho Ordered By: Angel Cook on 98-74-6392Wkidbdm BCG dye [Mass/Vol]3.3 g/dL3.5-5.7 [facility] HospitalCalcium [Mass/volume] in Serum or PlasmaOrdered By: Angel Cook on 67-02-0074Vrdcxuk [Mass/Vol]8.0 mg/dL8.6-10.3FMansfield HospitalCarbon dioxide, total [Moles/volume] in Serum or Plasma Ordered By: Angel Cook on 43-17-8335WJ7 [Moles/Vol]22.0 mmol/L21.0-31.0 [facility] HospitalChloride [Moles/volume] in Serum or Plasma Ordered By: Angel Cook on 78-25-0612Vezxdqav [Moles/Vol]107 mmol/L98-107 [facility] HospitalCreatinine [Mass/volume] in Serum or Plasma Ordered By: Angel Cook on 66-37-2229Wfedelxpak [Mass/Vol]4.21 mg/dL0.70-1.30 [facility] HospitalFerritin [Mass/volume] in Serum or Plasma Ordered By: nAgel Cook on 81-29-0789Zmojoeeb [Mass/Vol]100.2 ng/mL23.9-336.2 [facility] HospitalGlucose [Mass/volume] in Serum or PlasmaOrdered By: Angel Cook on 59-72-6262Gizbibt [Mass/Vol]167 mg/rJ17-213VexbowhtuCorey HospitalComment on above:ADA recommended reference rangeRandom Glucose Reference Range is dependent on time and content of last meal. Glucose of more than 200 mg/dL in a nonstressed, ambulatory subject supports the diagnosisof Diabetes Mellitus.Iron [Mass/volume] in Serum or PlasmaOrdered By: Angel Cook on 91-54-5216Zkvq [Mass/Vol]48 ug/wC26-278UteyiaxmwCorey HospitalIron binding capacity [Mass/volume] in Serum or PlasmaOrdered By: Angel Cook on 67-35-3108Dnvj binding capacity [Mass/Vol]221 ug/lB316-588MvpybjefvCorey HospitalIron saturation [Mass Fraction] in Serum or PlasmaOrdered By: Angel Cook on 44-31-7999Fblj saturation [Mass fraction]21.7 %20-50[facility] HospitalNo Panel InformationOrdered By: Angel Cook on 11-20-2022 Estimated GFR (CKD-EPI)17.714 mL/MinCorey HospitalPharmacy Creatinine Clearance (ChemN/AFMansfield HospitalPhosphate [Mass/volume] in Serum or PlasmaOrdered By: Angel Cook on 76-35-8240Zegihkamn [Mass/Vol]6.0 mg/dL3.7-7.2FMansfield HospitalPotassium [Moles/volume] in Serum or PlasmaOrdered By: Angel Cook on 74-74-0519Bgjqemskp [Moles/Vol]4.5 mmol/L3.5-5.1FMary Rutan Hospitalerum or plasma anion gap determinationOrdered By: Angel Cook on 58-91-1201Iuiei gap [Moles/Vol]13.5 mmol/L6.0-15.0[facility] Hospitalodium [Moles/volume] in Serum or PlasmaOrdered By: Angel Joyce on 61-03-3729Msadwg [Moles/Vol]138 mmol/O280-888KtxeplgwsCorey HospitalTransferrin [Mass/volume] in Serum or PlasmaOrdered By: Angel Joyce on 26-92-9243Jbjlzddneyj [Mass/Vol]158 mg/aO359-100TmznmepzfCorey HospitalUrea nitrogen [Mass/volume] in Serum or PlasmaOrdered By: Angel Joyce on 20-21-0579Evlq nitrogen [Mass/Vol]64 mg/dL7-25Core[facility] HospitalActivated partial thromboplastin time (aPTT) in platelet poor plasma by coagulation a Ordered By: Denilson Gomez on 63-36-0693dGHG Coag (PPP) [Time]38.0 s25.1-36.5 [facility] HospitalAlbumin [Mass/volume] in Serum or Plasma by Bromocresol green (BCG) dye binding methoOrdered By: Denilson Gomez on 11-12-2022 Albumin BCG dye [Mass/Vol]3.2 g/dL3.5-5.7FMansfield Hospital Basophils Auto (Bld) [#/Vol]Ordered By: Denilson Gomez on 52-69-5444Jrtgqxvzs (Bld) [#/Vol]0.1 10*3/uL0.0-0.2FMansfield HospitalBasophils/100 WBC Auto (Bld)Ordered By: Denilson Gomez on 79-56-3183Gypgbgtbt/100 WBC (Bld)1.4 %.[facility] HospitalCalcium [Mass/volume] in Serum or PlasmaOrdered By: Denilson Gomez on 94-73-9292Shakwes [Mass/Vol]8.2 mg/dL8.6-10.3FMansfield HospitalCarbon dioxide, total [Moles/volume] in Serum or PlasmaOrdered By: Denilson Gomez on 47-02-4920CH3 [Moles/Vol]22.5 mmol/L21.0-31.0[facility] HospitalChloride [Moles/volume] in Serum or PlasmaOrdered By: Denilson Gomez on 29-13-0032Bnvmmqua [Moles/Vol]108 mmol/N45-490KeuqpswjpCorey Hospital Cholesterol [Mass/volume] in Serum or PlasmaOrdered By: Denilson Gomez on 11-12-2022 Cholesterol [Mass/Vol]143 mg/eQ005-136TzigvztyuCorey HospitalComment on above:Chol less than 200 mg/dl low riskChol 201-239 mg/dl borderline riskChol 240 mg/dl and greater high riskCholesterol in LDL Calc [Mass/Vol]Ordered By: Denilson Gomez on 87-96-1244Zcenscqdmga in LDL [Mass/Vol]93 mg/dL0-100Core[facility] HospitalComment on above:LDL ATP III CLASSIFICATIONLDL less than 100 mg/dL OptimalLDL 100-129 mg/dL Near or above spfgixgAJW058-310 mg/dL Borderline highLDL 160-189 mg/dL HighLDL greater than 189 mg/dL Very high Cholesterol in VLDL Calc [Mass/Vol]Ordered By: Denilson Gomez on 11-12-2022 Cholesterol in VLDL [Mass/Vol]19 mg/dLCorey Hospital Creatinine [Mass/volume] in Serum or PlasmaOrdered By: Denilson Gomez on 11-12-2022 Creatinine [Mass/Vol]4.90 mg/dL0.70-1.30[facility] Eosinophils Auto (Bld) [#/Vol]Ordered By: Denilson Gomez on 52-02-9991Avidfcfxezv (Bld) [#/Vol]0.1 10*3/uL0.0-0.45[facility] HospitalEosinophils/100 WBC Auto (Bld)Ordered By: Denilson Gomez on 57-09-9223Ddsxldqybmt/100 WBC (Bld)1.9 % .[facility]y HospitalErythrocyte distribution width Auto (RBC) [Ratio]Ordered By: Denilson Gomez on 61-99-0145Cdstdoltpwn distribution width (RBC) [Ratio]12.2 %12.0-14.8[facility] HospitalGlucose [Mass/volume] in Serum or PlasmaOrdered By: Denilson Gomez on 13-41-7445Iighuoz [Mass/Vol]236 mg/dL 70-100Corey HospitalComment on above:ADA recommended reference rangeRandom Glucose Reference Range is dependent on time and content of last meal. Glucose of more than 200 mg/dL in a nonstressed, ambulatory subject supports the diagnosisof Diabetes Mellitus.Hematocrit Auto (Bld) [Volume fraction]Ordered By: Denilson Gomez on 35-95-3533Gltwhecltr (Bld) [Volume fraction] 25.5 %38.8-50.0[facility] HospitalHemoglobin [Mass/volume] in BloodOrdered By: Denilson Gomez on 59-08-6450Bddvdrsdgu (Bld) [Mass/Vol]8.7 g/dL 13.0-17.0[facility] HospitalLaboratory - Chemistry and Chemistry - challengeon 05-51-8680Cfepxfoxbzr [Mass/Vol]143\S\297Pfejkp921-704UY-MmxabChildren'S [place] 250 DO Work Phone: Comment on above:Chol less than 200 mg/dl low risk Chol 201-239 mg/dl borderline risk Chol 240 mg/dl and greater high risk Cholesterol in LDL [Mass/Vol]93\S\56Vaqant2-144CG-JistlChildren'S [place] 250 DO Work Phone: Comment on above:LDL ATP III CLASSIFICATION LDL less than 100 mg/dL Optimal LDL 100-129 mg/dL Near or above optimal LDL 130-159 mg/dL Borderline high LDL 160-189 mg/dL High LDL greater than 189 mg/dL Very high Laboratory - Chemistry and Chemistry - challengeOrdered By: Denilson Gomez on 11-11-0044QPY/1.73 sq M.predicted MDRD (S/P/Bld) [Vol rate/Area]14.764 mL/min/{1.73_m2}[facility] HospitalLaboratory - CoagulationOrdered By: Denilson Gomez on 86-20-8403HS Coag (PPP) [Time]12.4 s9.0-12.9[facility] HospitalLeukocytes [#/volume] corrected for nucleated erythrocytes in Blood by Automated counOrdered By: Denilson Gomez on 53-42-9939SBL corrected for nucl RBC Auto (Bld) [#/Vol]7.6 10*3/uL4.1-10.5FMansfield Hospital Lymphocytes Auto (Bld) [#/Vol]Ordered By: Denilson Gomez on 24-82-0815Wpovlyiqrpj (Bld) [#/Vol]1.0 10*3/uL1.00-4.8Corey HospitalLymphocytes/100 WBC Auto (Bld)Ordered By: Denilson Gomez on 17-98-6141Utxmitchcms/100 WBC (Bld)13.3 %.[facility] HospitalH Auto (RBC) [Entitic mass]Ordered By: Denilson Gomez on 74-97-3816WPY (RBC) [Entitic mass]29.8 pg27.5-35.2FMansfield HospitalMCHC Auto (RBC) [Mass/Vol]Ordered By: Denilson Gomez on 90-49-9538IIVT (RBC) [Mass/Vol]34.3 g/dL32.5-35.6FMansfield HospitalMCV Auto (RBC) [Entitic vol]Ordered By: Denilson Gomez on 16-09-8664ZNY (RBC) [Entitic vol] 87.0 fL83.5-101Corey HospitalMonocytes Auto (Bld) [#/Vol] Ordered By: Denilson Gomez on 57-91-2789Ppyolfjuh (Bld) [#/Vol]0.2 10*3/uL0.0-0.8 [facility] HospitalMonocytes/100 WBC Auto (Bld)Ordered By: Denilson Gomez on 11-03-1056Hmoajyowj/100 WBC (Bld)3.2 %.[facility]y HospitalNeutrophils Auto (Bld) [#/Vol]Ordered By: Denilson Gomez on 11-12-2022 Neutrophils (Bld) [#/Vol]6.1 10*3/uL1.8-7.7FMansfield Hospital Neutrophils/100 WBC Auto (Bld)Ordered By: Denilson Gomez on 54-47-4302Oeyuktlkssq/100 WBC (Bld)80.2 %.[facility]y HospitalNo Panel InformationOrdered By: Denilson Gomez on 84-43-4964Mfrrwvjg Creatinine Clearance (ChemN/AFMansfield HospitalNo Panel Informationon 84-20-751154.0\S\38.0above high mwomqmuvy54.1-36.5MP-[facility] 250 DO Work Phone: Comment on above:PERFORMED BY:[facility] [place] [phone] MEDICAL DIRECTORLEVY THOMASON M.D.1.1\S\1.1NormalMP-[facility] 250 DO Work Phone: Comment on above:INR Therapeutic Range A) Pre- and Peroperative OAT started two weeks before surgery. NOT HIP SURGERY: 1.5 - 2.5 HIP SURGERY: 2 - 3 B) Primary and secondary prevention of venous THROMBOSIS: 2 - 3 C) Active venous thrombosis, pulmonary embolism and prevention of recurrent venous thrombosis: 2 - 3 D) Prevention of arterial thromboembolism including patients with mechanical heart valves: 3 - 4.512.4\S\12.3Rpugiv2.0-12.9MP-[facility]-[place] 250 DO Work Phone: [phone]\S\80.2Normal.MP-[facility]-[place] 250 DO Work Phone: [phone]\S\8.7below low uaocspuwg52.0-17.0MP-[facility]-[place] 250 DO Work Phone: [phone]\S\500Naugbf676-984KS-Fqcli [place] [facility]-[place] 250 DO Work Phone: [phone]\S\12.7Tbdtrw06.0-14.8MP-[facility]-[place] 250 DO Work Phone: [phone]\S\34.5Vpmujz86.5-35.6MP-[facility]-[place] 250 DO Work Phone: [phone]\S\29.5Lnxnzw92.5-35.2MP-[facility]-[place] 250 DO Work Phone: [phone]\S\6.6Jrucnj5.8-7.7MP-[facility] 250 DO Work Phone: [phone]\S\0.7Xtdwvc6-4.5MP-[facility]-[place] 250 DO Work Phone: [phone]\S\1.4Normal.MP-[facility]-[place] 250 DO Work Phone: [phone]\S\1.9Normal.[facility] 250 DO Work Phone: [phone]\S\3.2below low threshold3.5-5.7MP-[facility] 250 DO Work Phone: [phone]\S\13.3Normal.[facility] 250 DO Work Phone: [phone]\S\0.5Vdqyyf7.0-0.45MP-[facility] 250 DO Work Phone: [phone] on above:PERFORMED BY:[facility] [place], [place] [phone] MEDICAL DIRECTORLEVY THOMASON M.D.0.2\S\0.9Rtsvpq6.0-0.8MP-[facility]-[place] 250 DO Work Phone: [phone]\S\1.8Dwgqsa3.00-4.8MP-[facility] 250 DO Work Phone: [phone]\S\87.2Ybuwdu15.4-349RO-Jvvmu [place] [facility]-[place] 250 DO Work Phone: [phone]\S\25.5below low lhkgkzmod12.8-50.0MP-[facility] 250 DO Work Phone: [phone]\S\2.93below low threshold3.90-5.60MP-[facility]-[place] 250 DO Work Phone: [phone]\S\7.2Uinngb8.1-10.5MP-[facility]-[place] 250 DO Work Phone: [phone]\S\12.1Tdvhyd8.0-15.0MP-[facility]-[place] 250 DO Work Phone: [phone]\S\5.1Qsmelv0.7-7.2MP-[facility]-[place] 250 DO Work Phone: [phone]\S\8.2below low threshold8.6-10.3MP-[facility] 250 DO Work Phone: [phone]\S\22.8Chhkmc75.0-31.0MP-[facility]-[place] 250 DO Work Phone: [phone]\S\108above high tagxygrbd06-781LL-Lifsg [place] [facility]-[place] 250 DO Work Phone: [phone]\S\5.6above high threshold3.5-5.1MP-[facility] 250 DO Work Phone: [phone]\S\131Gkckcw690-455SV-Cebhl [place] [facility] 250 DO Work Phone: [phone]\S\4.90above high threshold0.70-1.30MP-[facility] 250 DO Work Phone: [phone]\S\64above high -73HK-LxalcLakeview Hospitalusky 250 DO Work Phone: [phone]\S\236above high fzyogoaby85-503AR-Ubmqm [place] [facility] 250 DO Work Phone: Comment on above:Random Glucose Reference Range is dependent on time and content of last meal. Glucose of more than 200 mg/dL in a nonstressed, ambulatory subject supports the diagnosis of Diabetes Mellitus. ADA recommended reference range4.6\S\4.6Normal<5.0MP-[facility]-[place] 250 DO Work Phone: Comment on above:PERFORMED BY:[facility] [place], [place] [phone] MEDICAL DIRECTORLEVY THOMASON M.D.19\S\19NormalMP-[facility] 250 DO Work Phone: [phone]\S\82Kurknp5-601TW-Jxgkg [place] [facility] 250 DO Work Phone: Comment on above:TRIG ATP III CLASSIFICATION TRIG less than 150 mg/dL Normal TRIG 150-199 mg/dL Borderline high ABKP802-571 mg/dL High TRIG greater than 500 mg/dL Very high Standard traceable to the Center for Disease Conrtrol and Prevention (CDC) test method.31\S\80Ionpbe35-05HW-Rgodm [place] [facility] 250 DO Work Phone: Comment on above:HDL CHOL ATP-III CLASSIFICATION Cardiovascular Risk HDL > or equal to 60 mg/dL LOW HDL < 40 mg/dL HIGH 268.6\S\268.6above high gszeoprpq14-99ID-YoxsvChildren'S [place] 250 DO Work Phone: Comment on above:PERFORMED BY:[place] [address] [place], [place] [phone] MEDICAL DIRECTORLEVY THOMASON M.D.Nucleated erythrocytes [Presence] in Blood by Automated countOrdered By: Denilson Gomez on 83-52-1135Uytzuwmqy RBC Auto Ql (Bld)0.0 /100{WBC} 0-0.5FMansfield HospitalParathyrin.intact [Mass/volume] in Serum or PlasmaOrdered By: Denilson Gomez on 53-86-1246Bvizewknic.intact [Mass/Vol]268.6 pg/yI38-22YumhprwmbCorey HospitalPhosphate [Mass/volume] in Serum or PlasmaOrdered By: Denilson Gomez on 77-19-9648Qmqilhger [Mass/Vol]5.3 mg/dL3.7-7.2 [facility]y HospitalPlatelet mean volume Auto (Bld) [Entitic vol] Ordered By: Denilson Gomez on 28-98-7965Pkhdxwoa mean volume (Bld) [Entitic vol]8.7 fL6.6-10.1FMansfield HospitalPlatelet poor plasma international normalized ratio (INR) by coagulation assay (relatOrdered By: Denilson Gomez on 33-51-0977JDU Coag (PPP) [Relative time]1.1 {INR}Corey HospitalComment on above:INR Therapeutic Range A) Pre- and Peroperative OAT started two weeks before surgery. NOT HIP SURGERY: 1.5 - 2.5 HIP SURGERY: 2 - 3B) Primary and secondary prevention of venous THROMBOSIS: 2 - 3C) Active venous thrombosis, pulmonary embolismand prevention of recurrent venous thrombosis: 2 - 3D) Prevention of arterial thromboembolismincluding patients with mechanical heart valves: 3 - 4.5Platelets Auto (Bld) [#/Vol]Ordered By: Denilson Gomez on 73-28-5847Irsvqeawx (Bld) [#/Vol]154 10*3/vD854-668IcgatpneyCorey HospitalPotassium [Moles/volume] in Serum or PlasmaOrdered By: Denilson Gomez on 80-03-0203Qsqspwqpy [Moles/Vol]5.6 mmol/L3.5-5.1FMansfield HospitalRBC Auto (Bld) [#/Vol]Ordered By: Denilson Gomez on 28-15-0362GVM (Bld) [#/Vol] 2.93 10*6/uL3.90-5.60[facility] Hospitalerum or plasma anion gap determinationOrdered By: Denilson Gomez on 40-18-0819Cfwwi gap [Moles/Vol]12.1 mmol/L 6.0-15.0Mag[facility]uder Memorial Hospitalerum or plasma high density lipoprotein (HDL) cholesterol measurementOrdered By: Denilson Gomez on 11-12-2022 Cholesterol in HDL [Mass/Vol]31 mg/gO44-69QmzaksnklCorey Hospital Comment on above:HDL CHOL ATP-III CLASSIFICATION Cardiovascular RiskHDL > or equal to 60 mg/dL LOWHDL < 40 mg/dL HIGHSerum or plasma total cholesterol/high density lipoprotein (HDL) cholesterol mass ratOrdered By: Denilson Gomez on 66-87-4439Mvshywkfrex.total/Cholesterol in HDL [Mass ratio]4.6 {ratio}<5.0 [facility] Hospitalodium [Moles/volume] in Serum or PlasmaOrdered By: Denilson Gomez on 70-07-6976Tdqndz [Moles/Vol]137 mmol/D022-521MhahskpxoCorey HospitalTriglyceride [Mass/volume] in Serum or PlasmaOrdered By: Denilson Gomez on 87-99-0877Dpfqfefojnvy [Mass/Vol]97 mg/dL0-149Corey HospitalComment on above:TRIG ATP III CLASSIFICATIONTRIG less than 150 mg/dL NormalTRIG 150-199 mg/dL Borderline highTRIG 200-500 mg/dL High TRIG greater than 500 mg/dL Very highStandard traceable to the Center for Disease Co nrtrol and Prevention (CDC) test method.Urea nitrogen [Mass/volume] in Serum or PlasmaOrdered By: Denilson Gomez on 62-48-2215Cczc nitrogen [Mass/Vol]64 mg/dL7-25 Corey HospitalWBC Auto (Bld) [#/Vol]Ordered By: Denilson Gomez on 79-89-8261RCJ (Bld) [#/Vol]7.6 10*3/uL4.1-10.5FMansfield Hospital Office Visit (Cardiology)on 67-40-0225Swujzt-up visitDiagnoses/Problems Assessed ASHD (arteriosclerotic heart disease) (414.00) (I25.10) NSTEMI, initial episode of care (410.71) (I21.4) Status post insertion of drug eluting coronary artery stent (V45.82) (Z95.5) History of VA (myocardial infarction) (412) (I25.2) CHF (congestive heart [...] we can help. You may also call 7-345-AWBFNOW for free resources and assistance.; Status:Complete - [...] up in 4 months Chief Complaint YOEL TAMAYO is being seen for follow-up of a hospitalization for chest pain. [facility]. 37-year-old gentleman returns following recent hospitalization for unstable angina and hypertensionand anxiety. We escalated his isosorbide and hydralazine and is feeling much better. Patient has a prior history of anterior VA in October 2021 with primary revascularization of [...] 24 HourTAKE 1 TABLET BY MOUTH DAILY AT6:00 FOR 30 DAYS Losartan Potassium 25 MG Oral TabletTAKE 1 TABLET TWICE DAILY. Nitroglycerin 0.4 MG Sublingual Tablet SublingualPLACE 1 TABLET UNDER THE TONGUE EVERY 5 MINUTES UPTO 3 DOSES NEEDED FOR CHEST PAIN. Omeprazole [...] Rate76, R Radial Systolic1 (more content not included)...NormalUH TouchworksTobacco Screening.on 31-70-9494Uddsu depression screening assessmentNoJefferson Healthcare [facility] 250 DO Work Phone: Fall risk assessmenta) No falls within the last year [facility] [employer] 250 DO Work Phone: Tobacco use status CPHSa) YesMP-[facility] 250 DO Work Phone: Tobacco Screening.[facility] 250 DO Work Phone: Albumin [Mass/volume] in Serum or PlasmaOrdered By: Angel Cook on 22-09-8135Xuepvkj [Mass/Vol]2.7 g/dL3.2-5.5FMansfield HospitalCT biopsyOrdered By: Angel Georger on 07-67-9271Hjfeuixvcyb [Mass/Vol]150 mg/fN369-516EqqpdltdpCorey HospitalCalcium [Mass/volume] in Serum or PlasmaOrdered By: Angel Georger on 21-62-3810Tvpxqam [Mass/Vol]8.1 mg/dL8.2-10.2FMansfield HospitalCarbon dioxide, total [Moles/volume] in Serum or PlasmaOrdered By: Angel Cook on 58-48-9332RM6 [Moles/Vol]23.9 mmol/L22.0-30.0Corey HospitalCreatinine [Mass/volume] in UrineOrdered By: Angel Cook on 62-49-9565Phgnmadrna (U) [Mass/Vol]84.1 mg/dLCorey HospitalComment on above:No reference range establishedCreatinine and Glomerular filtration rate.predicted panel (S/P/Bld)Ordered By: Angel Cook on 30-96-2233Mgsgeexfco [Mass/Vol]4.60 mg/dL0.64-1.27Corey HospitalErythrocyte distribution width Auto (RBC) [Ratio]Ordered By: Angel Cook on 23-25-3765Tmgxrnsrruy distribution width (RBC) [Ratio]13.1 %12.0-14.8Corey HospitalEstimated glomerular filtration rate (GFR) non- AmericanOrdered By: Angel Cook on 46-99-5957VXW/1.73 sq M.predicted among non-blacks MDRD (S/P/Bld) [Vol rate/Area]14 mL/MinCorey HospitalFerritin [Mass/volume] in Serum or PlasmaOrdered By: Angel Cook on 43-20-7251Qzdlgjqj [Mass/Vol]86.0 ng/mL23.9-336.2FMansfield HospitalHematocrit Auto (Bld) [Volume fraction]Ordered By: Angel Cook on 58-59-1180Fihrioqwwn (Bld) [Volume fraction] 24.0 %38.8-50.0Corey HospitalHemoglobin [Mass/volume] in BloodOrdered By: Angel Cook on 61-73-9936Dwivubtbra (Bld) [Mass/Vol]8.3 g/dL 13.0-17.0Corey HospitalIron [Mass/volume] in Serum or Plasma Ordered By: Angel Cook on 22-17-5446Zvqr [Mass/Vol]55 ug/tQ39-059PvxuilmvbCorey HospitalIron binding capacity [Mass/volume] in Serum or Plasma Ordered By: Angel Cook on 27-80-3016Ygvk binding capacity [Mass/Vol]210 ug/dL 255-450Corey HospitalIron saturation [Mass Fraction] in Serum or PlasmaOrdered By: Angel Cook on 98-70-9817Xgcj saturation [Mass fraction] 26.2 %20-50Corey HospitalLaboratory - Chemistry and Chemistry - challengeOrdered By: Angel Cook on 37-96-0884Tsafmpcah [Mass/Vol]2.1 mg/dL 1.6-2.6FMansfield HospitalLeukocytes [#/volume] corrected for nucleated erythrocytes in Blood by Automated counOrdered By: Angel Cook on 93-21-4595EKJ corrected for nucl RBC Auto (Bld) [#/Vol]5.6 10*3/uL4.1-10.5 [facility] Auto (RBC) [Entitic mass]Ordered By: Angel Cook on 42-47-8187QHB (RBC) [Entitic mass]30.4 pg27.5-35.2FPremier Health Upper Valley Medical CenterHC Auto (RBC) [Mass/Vol]Ordered By: Angel Cook on 10-10-2022 MCHC (RBC) [Mass/Vol]34.5 g/dL32.5-35.6FMansfield HospitalMCV Auto (RBC) [Entitic vol]Ordered By: Angel Cook on 76-34-1249WIG (RBC) [Entitic vol] 88.2 fL83.5-101Corey HospitalNo Panel InformationOrdered By: Angel Cook on 04-60-098253725964-Ezpkvnf Vitamin D Total8.1 ng/tX28-334TzwvhitmuCorey HospitalComment on above:VITAMIN D STATUS 25(OH)VITAMIN D RANGE (ng/mL) Deficient <20 Insufficient 20 to <92Aykbrhusot82 to 100Reference: Vanna MF,Chemo NC, Sergey SIMENTAL, et al. Evaluation,treatment, and prevention of vitamin D deficiency; an Endocrine Society clinical practice guideline. JCEM. 2010; 96(7):1911-30.Estimated GFR ()17 mL/MinCorey HospitalComment on above:GFR estimated reference range: According to KDOQI guidelines, <60 ml/min/1.73m2 is sufficient todiagnose a patient with chronic kidney disease.Pharmacy Creatinine Clearance (ChemN/[facility] CenterParathyrin.intact [Mass/volume] in Serum or PlasmaOrdered By: Angel Cook on 57-38-0121Fycgqsetwp.intact [Mass/Vol]307.1 pg/cT91-70SbvkfejxsCorey HospitalPhosphate [Mass/volume] in Serum or PlasmaOrdered By: Angel Cook on 83-47-5323Jsngwsmjo [Mass/Vol]6.5 mg/dL2.5-4.6FMansfield HospitalPlatelet mean volume Auto (Bld) [Entitic vol]Ordered By: Angel Joyce on 81-70-4859Wqelozbt mean volume (Bld) [Entitic vol]8.3 fL6.6-10.1 Corey HospitalPlatelets Auto (Bld) [#/Vol]Ordered By: Angel Cook on 39-28-8118Vjywvqwsy (Bld) [#/Vol]185 10*3/dH028-364FjxmdmcesCorey HospitalProtein [Mass/volume] in UrineOrdered By: Angel Cook on 72-63-4029Tvbvong (U) [Mass/Vol]400 mg/dL0-9Corey HospitalRBC Auto (Bld) [#/Vol]Ordered By: Angel Cook on 91-23-8566UYI (Bld) [#/Vol]2.72 10*6/uL3.90-5.60[facility] Hospitalerum or plasma anion gap determinationOrdered By: Angel Cook on 06-57-7833Vsnps gap [Moles/Vol]10.1 mmol/L6.0-15.0[facility] Hospitalerum or plasma chloride measurement (moles/volume)Ordered By: Angel Cook on 65-77-6345Doyflrqy [Moles/Vol]107 mmol/L31-230MqxmfdhlzMagruder Memorial Hospitalerum or plasma glucose measurement (mass/volume)Ordered By: Angel Cook on 61-83-0390Ksbnkfl [Mass/Vol]190 mg/vO25-389OgavnxtnfCorey HospitalComment on above:ADA recommended reference rangeRandom Glucose Reference Range is dependent on time and content of last meal. Glucose of more than 200 mg/dL in a nonstressed, ambulatory subject supports the diagnosisof Diabetes Mellitus.Serum or plasma potassium measurement (moles/volume)Ordered By: Angel Cook on 10-10-2022 Potassium [Moles/Vol]5.0 mmol/L3.5-5.1FMary Rutan Hospitalerum or plasma sodium measurement (moles/volume)Ordered By: Angel Cook on 10-10-2022 Sodium [Moles/Vol]136 mmol/D210-417VfmnqcctsCorey HospitalUrea nitrogen [Mass/volume] in Serum or PlasmaOrdered By: Angel Cook on 10-10-2022 Urea nitrogen [Mass/Vol]57 mg/dL9-23Corey HospitalUrine protein/creatinine ratioOrdered By: Angel Cook on 84-90-5172Rytledm/Creatinine (U) [Ratio]4756 mg/g{Cre}0-200Corey HospitalActivated partial thromboplastin time (aPTT) in platelet poor plasma by coagulation aOrdered By: Mickey Gr on 55-44-1891wWYB Coag (PPP) [Time]37.1 s25.1-36.5FMansfield HospitalBasophils Auto (Bld) [#/Vol]Ordered By: Reina Renae on 82-97-4699Vulmloksr (Bld) [#/Vol]0.1 10*3/uL0.0-0.2FMansfield HospitalBasophils/100 WBC Auto (Bld)Ordered By: Reina Renae on 10-03-2022 Basophils/100 WBC (Bld)1.0 %.Corey HospitalCreatine kinase [Enzymatic activity/volume] in Serum or PlasmaOrdered By: Reina Renae on 84-99-6146LL [Catalytic activity/Vol]213 U/U83-335VyoyxnctbCorey HospitalCK [Catalytic activity/Vol]243 U/D56-787RgzqdvwjyCorey Hospital Creatine kinase.MB [Mass/volume] in Serum or PlasmaOrdered By: Reina Renae on 36-66-2577GD.MB [Mass/Vol]5.6 ng/mL0.6-6.3FMansfield Hospital CK.MB [Mass/Vol]5.9 ng/mL0.6-6.3FMansfield HospitalCreatinine and Glomerular filtration rate.predicted panel (S/P/Bld)Ordered By: Reina Renae on 84-78-6992Mkvbwtutcf [Mass/Vol]4.17 mg/dL0.64-1.27Corey HospitalEosinophils Auto (Bld) [#/Vol]Ordered By: Reina Renae on 10-03-2022 Eosinophils (Bld) [#/Vol]0.2 10*3/uL0.0-0.45[facility] Eosinophils/100 WBC Auto (Bld)Ordered By: Reina Renae on 10-03-2022 Eosinophils/100 WBC (Bld)2.7 %.[facility]y HospitalErythrocyte distribution width Auto (RBC) [Ratio]Ordered By: Reina Renae on 10-03-2022 Erythrocyte distribution width (RBC) [Ratio]13.3 %12.0-14.8[facility] HospitalEstimated glomerular filtration rate (GFR) non- Ordered By: Reina Renae on 38-01-5393VVR/1.73 sq M.predicted among non-blacks MDRD (S/P/Bld) [Vol rate/Area]16 mL/MinCorey HospitalGlucose Glucometer (BldC) [Mass/Vol]Ordered By: Ross Catherine on 49-28-0666Zwyqsko [Mass/Vol]214 mg/dLCorey HospitalComment on above:Random Glucose Reference Range is dependent on time and content of last meal. Glucose of more than 200 mg/dL in a nonstressed, ambulatory subject supports the diagnosis of Diabetes Mellitus.Hematocrit Auto (Bld) [Volume fraction]Ordered By: Reina Renae on 64-13-9011Dovqpuhyxk (Bld) [Volume fraction]24.9 % 38.8-50.0[facility] HospitalHemoglobin [Mass/volume] in Blood Ordered By: Reina Renae on 14-13-3797Nopbvikoky (Bld) [Mass/Vol]8.5 g/dL 13.0-17.0[facility] HospitalLeukocytes [#/volume] corrected for nucleated erythrocytes in Blood by Automated counOrdered By: Reina Renae on 01-55-6999NMA corrected for nucl RBC Auto (Bld) [#/Vol]6.4 10*3/uL4.1-10.5 [facility] HospitalLymphocytes Auto (Bld) [#/Vol]Ordered By: Reina Renae on 52-69-5466Dhwkqcpjmtv (Bld) [#/Vol]1.7 10*3/uL1.00-4.8 [facility] HospitalLymphocytes/100 WBC Auto (Bld)Ordered By: Reina Renae on 92-38-1703Hjonmubarbm/100 WBC (Bld)26.3 %.[facility] Auto (RBC) [Entitic mass]Ordered By: Reina Renae on 49-16-9454HYS (RBC) [Entitic mass]29.8 pg27.5-35.2FAC[facility] Auto (RBC) [Mass/Vol]Ordered By: Reina Renae on 33-63-6448YLCK (RBC) [Mass/Vol]34.3 g/dL32.5-35.6FMansfield HospitalMCV Auto (RBC) [Entitic vol]Ordered By: Reina Renae on 37-90-5848PRI (RBC) [Entitic vol]86.9 fL83.5-101Core[facility] HospitalMonocytes Auto (Bld) [#/Vol] Ordered By: Reina Renae on 56-92-4197Dwwxjcmyq (Bld) [#/Vol]0.3 10*3/uL 0.0-0.8Core[facility] HospitalMonocytes/100 WBC Auto (Bld)Ordered By: Reina Renae on 90-51-6114Pefarzsbi/100 WBC (Bld)5.4 %.[facility]y HospitalNeutrophils Auto (Bld) [#/Vol]Ordered By: Reina Renae on 15-11-5533Uxfnsmthnwy (Bld) [#/Vol]4.1 10*3/uL1.8-7.7FMansfield HospitalNeutrophils/100 WBC Auto (Bld)Ordered By: Reina Renae on 10-03-2022 Neutrophils/100 WBC (Bld)64.6 %.[facility] HospitalNo Panel InformationOrdered By: Ross Catherine on 22-62-9345Pwlpfns Glucose CommentGlu2: cleaned meterCorey HospitalNo Panel InformationOrdered By: Reina Renae on 93-36-7942Ajeowvpwb GFR ()20 mL/MinCorey HospitalComment on above:GFR estimated reference range: According to KDOQI guidelines, <60 ml/min/1.73m2 is sufficient todiagnose a patient with chronic kidney disease.Pharmacy Creatinine Clearance (Chem25.45Corey HospitalNucleated erythrocytes [Presence] in Blood by Automated countOrdered By: Reina Renae on 71-26-1464Ocwmkexcc RBC Auto Ql (Bld)0.2 /100{WBC}0-0.5FMansfield HospitalPlatelet mean volume Auto (Bld) [Entitic vol]Ordered By: Reina Renae on 35-07-6190Dlqgjgpt mean volume (Bld) [Entitic vol]8.2 fL6.6-10.1FMansfield HospitalPlatelets Auto (Bld) [#/Vol]Ordered By: Reina Renae on 69-03-9269Wqzdimvct (Bld) [#/Vol]176 10*3/nM809-829NbhfsvhlyCorey HospitalRBC Auto (Bld) [#/Vol]Ordered By: Reina Renae on 81-86-5058WKB (Bld) [#/Vol]2.86 10*6/uL3.90-5.60[facility] Hospitalerum or plasma anion gap determinationOrdered By: Reina Renae on 04-50-8253Gffww gap [Moles/Vol]10.1 mmol/L6.0-15.0[facility] Hospitalerum or plasma calcium measurement (mass/volume)Ordered By: Reina Renae on 89-40-8458Dverdcf [Mass/Vol]8.0 mg/dL8.2-10.2FMary Rutan Hospitalerum or plasma chloride measurement (moles/volume) Ordered By: Reina Renae on 20-39-9385Jauigfwx [Moles/Vol]108 mmol/L95-114 [facility] Hospitalerum or plasma creatine kinase MB (CKMB)/total creatine kinase (CK) ratio by calculaOrdered By: Reina Renae on 10-03-2022 CK.MB Calc [Catalytic fraction]2.6 %0.00-2.50[facility] CK.MB Calc [Catalytic fraction]2.4 %0.00-2.50[facility] Serum or plasma glucose measurement (mass/volume)Ordered By: Reina Renae on 62-16-7375Ijjjmgq [Mass/Vol]248 mg/dW75-479ZdvjxlunqCorey Hospital Comment on above:ADA recommended reference rangeRandom Glucose Reference Range is dependent on time and content of last meal. Glucose of more than 200 mg/dL in a nonstressed, ambulatory subject supports the diagnosisof Diabetes Mellitus. Serum or plasma potassium measurement (moles/volume)Ordered By: Reina Renae on 23-86-7996Depgcqxcu [Moles/Vol]4.7 mmol/L3.5-5.1FMary Rutan Hospitalerum or plasma sodium measurement (moles/volume)Ordered By: Reina Renae on 34-26-4542Oyfpfu [Moles/Vol]136 mmol/C376-014BtxrictiiMagruder Memorial Hospitalerum or plasma total carbon dioxide measurement (moles/volume) Ordered By: Reina Renae on 14-98-9248GG7 [Moles/Vol]22.6 mmol/L22.0-30.0 [facility] Hospitalerum or plasma urea nitrogen measurement (mass/volume)Ordered By: Reina Renae on 96-36-3129Kmfv nitrogen [Mass/Vol]55 mg/dL9-23Corey HospitalTroponin I.cardiac [Mass/volume] in Serum or Plasma by High sensitivity methodOrdered By: Reina Renae on 93-25-4438Usphzwxf I.cardiac High sensitivity method [Mass/Vol]18 pg/mL0-20 [facility] HospitalTroponin I.cardiac High sensitivity method [Mass/Vol]18 pg/mL0-20[facility] HospitalWBC Auto (Bld) [#/Vol] Ordered By: Reina Renae on 37-63-2307CRO (Bld) [#/Vol]6.4 10*3/uL4.1-10.5 [facility] HospitalBasophils Auto (Bld) [#/Vol]Ordered By: Mickey Gr on 00-10-6479Qayprvszp (Bld) [#/Vol]0.1 10*3/uL0.0-0.2FMansfield HospitalBasophils/100 WBC Auto (Bld)Ordered By: Mickey Gr on 10-02-2022 Basophils/100 WBC (Bld)1.7 %.[facility] HospitalCreatinine and Glomerular filtration rate.predicted panel (S/P/Bld)Ordered By: Mickey Gr on 68-35-3153Ludgrlqavg [Mass/Vol]4.16 mg/dL0.64-1.27Core[facility] HospitalEosinophils Auto (Bld) [#/Vol]Ordered By: Mickey Gr on 10-02-2022 Eosinophils (Bld) [#/Vol]0.2 10*3/uL0.0-0.45[facility] Eosinophils/100 WBC Auto (Bld)Ordered By: Mickey Gr on 10-02-2022 Eosinophils/100 WBC (Bld)2.7 %.[facility] HospitalErythrocyte distribution width Auto (RBC) [Ratio]Ordered By: Mickey Gr on 10-02-2022 Erythrocyte distribution width (RBC) [Ratio]13.2 %12.0-14.8[facility] HospitalEstimated glomerular filtration rate (GFR) non- Ordered By: Mickey Gr on 57-67-3266XYB/1.73 sq M.predicted among non-blacks MDRD (S/P/Bld) [Vol rate/Area]16 mL/MinCorey Hospital Hematocrit Auto (Bld) [Volume fraction]Ordered By: Mickey Gr on 10-02-2022 Hematocrit (Bld) [Volume fraction]23.8 %38.8-50.0[facility] HospitalHemoglobin [Mass/volume] in BloodOrdered By: Mickey Gr on 10-02-2022 Hemoglobin (Bld) [Mass/Vol]8.3 g/dL13.0-17.0[facility] Laboratory - Chemistry and Chemistry - challengeOrdered By: Mickey Gr on 14-48-9002Ueycmchphoi peptide B (Bld) [Mass/Vol]381.0 pg/mL5-100[facility] HospitalLaboratory - CoagulationOrdered By: Mickey Gr on 25-92-9609GT Coag (PPP) [Time]12.1 s9.0-12.9[facility] Leukocytes [#/volume] corrected for nucleated erythrocytes in Blood by Automated counOrdered By: Mickey Gr on 15-59-8752PRA corrected for nucl RBC Auto (Bld) [#/Vol]7.2 10*3/uL4.1-10.5FMansfield HospitalLymphocytes Auto (Bld) [#/Vol]Ordered By: Mickey Gr on 45-69-6546Zyhyhdfvuoo (Bld) [#/Vol]1.4 10*3/uL1.00-4.8[facility]y HospitalLymphocytes/100 WBC Auto (Bld) Ordered By: Mickey Gr on 74-17-6048Zubyuhqnali/100 WBC (Bld)19.9 %.[facility]H Auto (RBC) [Entitic mass]Ordered By: Mickey Gr on 55-24-4155LWF (RBC) [Entitic mass]30.4 pg27.5-35.2FMansfield HospitalMCHC Auto (RBC) [Mass/Vol]Ordered By: Mickey Gr on 87-77-3737TLLL (RBC) [Mass/Vol]34.9 g/dL32.5-35.6FMansfield HospitalMCV Auto (RBC) [Entitic vol]Ordered By: Mickey Gr on 35-46-8760FSK (RBC) [Entitic vol]87.1 fL83.5-101Core[facility] HospitalMonocyte distribution width [Entitic volume] in Blood by AutomatedOrdered By: Mickey Gr on 96-88-0698Zsvpwzrm distribution width Auto (Bld) [Entitic vol]14.39 %0.00-20.00Corey HospitalMonocytes Auto (Bld) [#/Vol]Ordered By: Mickey Gr on 10-02-2022 Monocytes (Bld) [#/Vol]0.4 10*3/uL0.0-0.8[facility] Monocytes/100 WBC Auto (Bld)Ordered By: Mickey Gr on 56-82-4393Mgzcusnfm/100 WBC (Bld)5.5 %.[facility]y HospitalNeutrophils Auto (Bld) [#/Vol] Ordered By: Mickey Gr on 18-99-9783Mehjggqwyla (Bld) [#/Vol]5.1 10*3/uL 1.8-7.7FMansfield HospitalNeutrophils/100 WBC Auto (Bld)Ordered By: Mickey Gr on 25-18-9558Tmqrjfygyuq/100 WBC (Bld)70.2 %.[facility] HospitalNo Panel InformationOrdered By: Mickey Gr on 10-02-2022 Estimated GFR ()20 mL/MinCorey Hospital Comment on above:GFR estimated reference range: According to KDOQI guidelines, <60 ml/min/1.73m2 is sufficient todiagnose a patient with chronic kidney disease.Pharmacy Creatinine Clearance (Chem25.83[facility]y HospitalNucleated erythrocytes [Presence] in Blood by Automated countOrdered By: Mickey Gr on 24-15-4508Wxiszynqv RBC Auto Ql (Bld)0.0 /100{WBC}0-0.5FMansfield HospitalPlatelet mean volume Auto (Bld) [Entitic vol]Ordered By: Mickey Gr on 33-06-1652Ppiagyep mean volume (Bld) [Entitic vol]8.2 fL6.6-10.1 [facility]y HospitalPlatelet poor plasma international normalized ratio (INR) by coagulation assay (relatOrdered By: Mickey Gr on 29-71-9204DEU Coag (PPP) [Relative time]1.0 {INR}Corey HospitalComment on above:INR Therapeutic Range A) Pre- and Peroperative OAT started two weeks before surgery. NOT HIP SURGERY: 1.5 - 2.5 HIP SURGERY: 2 - 3B) Primary and secondary prevention of venous THROMBOSIS: 2 - 3C) Active venous thrombosis, pulmonary embolismand prevention of recurrent venous thrombosis: 2 - 3D) Preve ntion of arterial thromboembolismincluding patients with mechanical heart valves: 3 - 4.5Platelets Auto (Bld) [#/Vol]Ordered By: Mickey Gr on 36-27-5222Ubuahchau (Bld) [#/Vol]185 10*3/cH553-709NqyjjizguCorey HospitalRBC Auto (Bld) [#/Vol]Ordered By: Mickey Gr on 62-61-8400GRY (Bld) [#/Vol]2.74 10*6/uL3.90-5.60[facility] Hospitalerum or plasma anion gap determinationOrdered By: Mickey Gr on 89-46-7081Jjkbk gap [Moles/Vol]15.1 mmol/L6.0-15.0[facility] Hospitalerum or plasma calcium measurement (mass/volume)Ordered By: Mickey Gr on 45-34-4849Nnugrii [Mass/Vol]8.2 mg/dL8.2-10.2FMary Rutan Hospitalerum or plasma chloride measurement (moles/volume)Ordered By: Mickey Gr on 10-02-2022 Chloride [Moles/Vol]103 mmol/C06-656AsoajtdbqMagruder Memorial Hospitalerum or plasma glucose measurement (mass/volume)Ordered By: Mickey Gr on 10-02-2022 Glucose [Mass/Vol]223 mg/eJ53-831EbxjudqexCorey HospitalComment on above:ADA recommended reference rangeRandom Glucose Reference Range is dependent on time and content of last meal. Glucose of more than 200 mg/dL in a nonstressed, ambulatory subject supports the diagnosisof Diabetes Mellitus.Serum or plasma potassium measurement (moles/volume)Ordered By: Mickey Gr on 53-35-9924Ziagfeseu [Moles/Vol]4.4 mmol/L3.5-5.1FMary Rutan Hospitalerum or plasma sodium measurement (moles/volume)Ordered By: Mickey Gr on 25-23-4791Jtkkny [Moles/Vol]135 mmol/W181-403WlwmrrfcwMagruder Memorial Hospitalerum or plasma total carbon dioxide measurement (moles/volume)Ordered By: Mickey Gr on 80-80-0661AN1 [Moles/Vol]21.3 mmol/L22.0-30.0[facility] Hospitalerum or plasma urea nitrogen measurement (mass/volume)Ordered By: Mickey Gr on 60-86-8417Vzgs nitrogen [Mass/Vol]54 mg/dL9-23Corey HospitalWBC Auto (Bld) [#/Vol]Ordered By: Mickey Gr on 30-63-1715XSX (Bld) [#/Vol]7.2 10*3/uL4.1-10.5FMansfield Hospital Glucose Glucometer (BldC) [Mass/Vol]Ordered By: Romain Mendoza on 09-17-2022 Glucose [Mass/Vol]178 mg/dLCorey HospitalComment on above: Random Glucose Reference Range is dependent on time and content of last meal. Glucose of more than 200 mg/dL in a nonstressed, ambulatory subject supports the diagnosis of Diabetes Mellitus.No Panel InformationOrdered By: Romain Mendoza on 51-76-3415Txqnzya Glucose CommentGlu2: cleaned meterMagruder Memorial Hospitalerum or plasma potassium measurement (moles/volume) Ordered By: Romain Mendoza on 64-54-5340Yucanpdjz [Moles/Vol]4.4 mmol/L 3.5-5.1FMansfield HospitalBasophils Auto (Bld) [#/Vol]Ordered By: Romain Mendoza on 54-14-7763Bfdsuzaoy (Bld) [#/Vol]0.1 10*3/uL0.0-0.2 [facility]y HospitalBasophils/100 WBC Auto (Bld)Ordered By: Romain Mendoza on 33-99-8446Wowgmflqc/100 WBC (Bld)1.4 %.[facility] HospitalCreatinine and Glomerular filtration rate.predicted panel (S/P/Bld) Ordered By: Romain Mendoza on 73-06-3198Vyjlnlnolr [Mass/Vol]3.72 mg/dL 0.64-1.27Corey HospitalEosinophils Auto (Bld) [#/Vol]Ordered By: Romain Mendoza on 33-35-8566Dgqvjlifcbu (Bld) [#/Vol]0.1 10*3/uL0.0-0.45 [facility] HospitalEosinophils/100 WBC Auto (Bld)Ordered By: Romain Mendoza on 54-88-3527Lzcenrkpnup/100 WBC (Bld)2.1 %.[facility] HospitalErythrocyte distribution width Auto (RBC) [Ratio]Ordered By: Romain Mendoza on 08-02-9048Hkbcnfxhsuw distribution width (RBC) [Ratio] 13.5 %12.0-14.8[facility] HospitalEstimated glomerular filtration rate (GFR) non- AmericanOrdered By: Romain Mendoza on 09-10-2022 GFR/1.73 sq M.predicted among non-blacks MDRD (S/P/Bld) [Vol rate/Area]18 mL/Min [facility]y HospitalHematocrit Auto (Bld) [Volume fraction]Ordered By: Romain Mendoza on 83-16-1361Uqsbtbbpvw (Bld) [Volume fraction]24.2 % 38.8-50.0[facility] HospitalHemoglobin [Mass/volume] in Blood Ordered By: Romain Mendoza on 33-12-2927Jzilqyidga (Bld) [Mass/Vol]8.3 g/dL 13.0-17.0[facility] HospitalLeukocytes [#/volume] corrected for nucleated erythrocytes in Blood by Automated counOrdered By: Romain Mendoza on 87-65-6666OJA corrected for nucl RBC Auto (Bld) [#/Vol]6.7 10*3/uL4.1-10.5 [facility] HospitalLymphocytes Auto (Bld) [#/Vol]Ordered By: Romain Mendoza on 28-04-9970Cyhavulakvd (Bld) [#/Vol]1.5 10*3/uL1.00-4.8 [facility] HospitalLymphocytes/100 WBC Auto (Bld)Ordered By: Romain Mendoza on 88-00-2609Amfscqtiycn/100 WBC (Bld)22.2 %.[facility]y HospitalMCH Auto (RBC) [Entitic mass]Ordered By: Romain Mendoza on 36-49-4562CNL (RBC) [Entitic mass]29.8 pg27.5-35.2FMansfield HospitalMCHC Auto (RBC) [Mass/Vol]Ordered By: Romain Mendoza on 86-65-5248WVWV (RBC) [Mass/Vol]34.4 g/dL32.5-35.6FMansfield HospitalMCV Auto (RBC) [Entitic vol]Ordered By: Romain Mendoza on 09-10-2022 MCV (RBC) [Entitic vol]86.7 fL83.5-101Core[facility] HospitalMonocytes Auto (Bld) [#/Vol]Ordered By: Romain Mendoza on 36-33-6192Yeutxgpnw (Bld) [#/Vol]0.4 10*3/uL0.0-0.8Corey HospitalMonocytes/100 WBC Auto (Bld)Ordered By: Romain Mendoza on 79-63-8767Wgemrefwp/100 WBC (Bld)5.5 %. [facility]y HospitalNeutrophils Auto (Bld) [#/Vol]Ordered By: Romain Mendoza on 13-46-2649Qsmbfhzwcvx (Bld) [#/Vol]4.6 10*3/uL1.8-7.7 [facility]y HospitalNeutrophils/100 WBC Auto (Bld)Ordered By: Romain Mendoza on 32-54-8714Ohfwhyhoaln/100 WBC (Bld)68.8 %.[facility] HospitalNo Panel InformationOrdered By: Romain Mendoza on 14-32-0914Jhgaxzprw GFR ()22 mL/MinCorey HospitalComment on above:GFR estimated reference range: According to KDOQI guidelines, <60 ml/min/1.73m2 is sufficient todiagnose a patient with chronic kidney disease.Pharmacy Creatinine Clearance (ChemN/[facility] CenterNucleated erythrocytes [Presence] in Blood by Automated countOrdered By: Romain Mendoza on 07-90-5892Tobtzleve RBC Auto Ql (Bld)0.1 /100{WBC}0-0.5 Corey HospitalPlatelet mean volume Auto (Bld) [Entitic vol] Ordered By: Romain Mendoza on 52-74-5022Dnswyckm mean volume (Bld) [Entitic vol]8.4 fL6.6-10.1FMansfield HospitalPlatelets Auto (Bld) [#/Vol] Ordered By: Romain Mendoza on 93-24-9018Zodyycxmb (Bld) [#/Vol]187 10*3/uL 150-450Corey HospitalRBC Auto (Bld) [#/Vol]Ordered By: Romain Mendoza on 89-12-4294RPA (Bld) [#/Vol]2.79 10*6/uL3.90-5.60[facility] Hospitalerum or plasma anion gap determinationOrdered By: Romain Mendoza on 15-61-9912Ctdaq gap [Moles/Vol]11.9 mmol/L6.0-15.0 [facility] Hospitalerum or plasma calcium measurement (mass/volume)Ordered By: Romain Mendoza on 18-66-1689Pypkvvi [Mass/Vol]8.1 mg/dL8.2-10.2FMary Rutan Hospitalerum or plasma chloride measurement (moles/volume)Ordered By: Romain Mendoza on 77-37-6500Trhlwqsh [Moles/Vol]105 mmol/R67-933UsuixuqngMagruder Memorial Hospitalerum or plasma glucose measurement (mass/volume)Ordered By: Romain Mendoza on 09-10-2022 Glucose [Mass/Vol]168 mg/xY61-044AlphqxsgtCorey HospitalComment on above:ADA recommended reference rangeRandom Glucose Reference Range is dependent on time and content of last meal. Glucose of more than 200 mg/dL in a nonstressed, ambulatory subject supports the diagnosisof Diabetes Mellitus.Serum or plasma potassium measurement (moles/volume)Ordered By: Romain Mendoza on 32-10-2414Iygsvvklq [Moles/Vol]4.3 mmol/L3.5-5.1FMary Rutan Hospitalerum or plasma sodium measurement (moles/volume)Ordered By: Romain Mendoza on 79-53-4760Oneqcy [Moles/Vol]135 mmol/D329-465SywvuxgbtMagruder Memorial Hospitalerum or plasma total carbon dioxide measurement (moles/volume) Ordered By: Romain Mendoza on 77-85-4459PP2 [Moles/Vol]22.4 mmol/L22.0-30.0 [facility] Hospitalerum or plasma urea nitrogen measurement (mass/volume)Ordered By: Romain Mendoza on 19-34-3640Qgms nitrogen [Mass/Vol]48 mg/dL9-23Corey HospitalWBC Auto (Bld) [#/Vol] Ordered By: Romain Mendoza on 30-13-1493JMK (Bld) [#/Vol]6.7 10*3/uL4.1-10.5 [facility] HospitalAlbumin [Mass/volume] in Serum or PlasmaOrdered By: Jorje Small on 11-19-4136Fazvkph [Mass/Vol]2.9 g/dL2.9-4.4FMansfield HospitalAutomated erythrocytes count in urine sediment (number/area)Ordered By: Mickey Sheriff on 05-60-9530YDX Auto (Urine sed) [#/Area]5-9 [HPF]0-4FMansfield HospitalAutomated leukocytes count in urine sediment (number/area)Ordered By: Mickey Sheriff on 84-61-2123FDL Auto (Urine sed) [#/Area]5-9 [HPF]0-4FMansfield HospitalAutomated urine hyaline casts count (number/volume)Ordered By: Mickey Sheriff on 09-01-2022 Hyaline casts Auto (U) [#/Vol]0-8 [LPF]0-1FMansfield Hospital Basophils Auto (Bld) [#/Vol]Ordered By: Jorje Small on 53-16-4162Zuptgrpvx (Bld) [#/Vol]0.1 10*3/uL0.0-0.2FMansfield HospitalBasophils/100 WBC Auto (Bld)Ordered By: Jorje Small on 56-07-4553Zpejxjfgr/100 WBC (Bld)1.7 %. [facility]y HospitalBilirubin Test strip Ql (U)Ordered By: Mickey Sheriff on 25-33-0792Rdvgcqneb Ql (U)NegativeNegativeCorey HospitalCast typing in urine sediment by light microscopyOrdered By: Mickey Sheriff on 14-93-7811Xxvfs LM Nom (Urine sed)None seen [LPF]None SeenCorey HospitalColor Auto (U)Ordered By: Mickey Sheriff on 09-01-2022 Color (U)YellowYellowCorey HospitalEosinophils Auto (Bld) [#/Vol]Ordered By: Jorje Small on 60-70-8569Naqvxfwcpeb (Bld) [#/Vol]0.1 10*3/uL 0.0-0.45Core[facility] HospitalEosinophils/100 WBC Auto (Bld)Ordered By: Jorje Small on 60-67-5217Jomnwjqbylh/100 WBC (Bld)2.3 %.[facility] HospitalErythrocyte distribution width Auto (RBC) [Ratio]Ordered By: Jorje Small on 88-29-0853Wnqvyowjzhe distribution width (RBC) [Ratio]13.2 %12.0-14.8 [facility] HospitalFine granular cast count in urine sediment by microscopy (number/low power field )Ordered By: Mickey Sheriff on 18-70-7641Vivg Granular Casts LM.LPF (Urine sed) [#/Area]3-4 [LPF]0-1FMansfield HospitalHematocrit Auto (Bld) [Volume fraction]Ordered By: Jorje Small on 06-78-7332Uzmlzyimxw (Bld) [Volume fraction]27.2 %38.8-50.0Core[facility] HospitalHemoglobin [Mass/volume] in BloodOrdered By: Jorje Small on 32-24-8804Rjfzsftnwt (Bld) [Mass/Vol]9.5 g/dL13.0-17.0Core[facility] HospitalIgA [Mass/volume] in Serum or PlasmaOrdered By: Jorje Small on 09-01-2022 IgA [Mass/Vol]314 mg/mS63-707TmdmfobckCorey HospitalIgG [Mass/volume] in Serum or PlasmaOrdered By: Jorje Small on 61-31-0219IkF [Mass/Vol]1043 mg/dL 603-1613Corey HospitalIgM [Mass/volume] in Serum or Plasma Ordered By: Jorje Small on 10-00-0585WcZ [Mass/Vol]189 mg/gT33-417KuikbfileCorey HospitalComment on above:Performed at: - [facility] [id number] Director: Pablito Alexander PhD, Phone: [phone] light chains.kappa.free [Mass/volume] in SerumOrdered By: Jorje Small on 06-52-2209Qwuxiboitxqqcn light chains.kappa.free (S) [Mass/Vol]128.0 mg/L3.3-19.4FMansfield HospitalImmunoglobulin light chains.kappa.free/Immunoglobulin light chains.lambda.free [MassOrdered By: Jorje Small on 43-92-5824Zsanytriiopfoh light chains.kappa.free/Immunoglobulin light chains.lambda.free (S) [Mass ratio]1.650.26-1.65Corey HospitalComment on above:Performed at: - [facility] [id number] [place], [place] [id number] Director: Pablito Alexander PhD, Phone: [phone] Immunoglobulin light chains.lambda.free [Mass/volume] in Serum or PlasmaOrdered By: Jorje Small on 63-08-4868Wvgblfvxqbxqjw light chains.lambda.free [Mass/Vol] 77.5 mg/L5.7-26.3FMansfield HospitalKetones Auto test strip (U) [Mass/Vol]Ordered By: Mickey Sheriff on 04-20-2070Xruvkvf (U) [Mass/Vol]Negative NegativeCorey HospitalLeukocytes [#/volume] corrected for nucleated erythrocytes in Blood by Automated counOrdered By: Jorje Small on 07-27-0742WJZ corrected for nucl RBC Auto (Bld) [#/Vol]6.2 10*3/uL4.1-10.5 Core[facility] HospitalLymphocytes Auto (Bld) [#/Vol]Ordered By: Jorje Small on 48-50-2018Pxczmyimlla (Bld) [#/Vol]1.3 10*3/uL1.00-4.8Corey HospitalLymphocytes/100 WBC Auto (Bld)Ordered By: Jorje Small on 60-13-5215Zqnfrndtodf/100 WBC (Bld)20.4 %.[facility] Auto (RBC) [Entitic mass]Ordered By: Jorje Small on 10-05-1646GCA (RBC) [Entitic mass]30.1 pg27.5-35.2FPremier Health Upper Valley Medical CenterHC Auto (RBC) [Mass/Vol]Ordered By: Jorje Small on 65-85-1226BRFA (RBC) [Mass/Vol]34.9 g/dL 32.5-35.6FPremier Health Upper Valley Medical CenterV Auto (RBC) [Entitic vol]Ordered By: Jorje Small on 32-39-9327LUB (RBC) [Entitic vol]86.2 fL83.5-101Corey HospitalMonocytes Auto (Bld) [#/Vol]Ordered By: Jorje Small on 99-02-6236Iyaudggwh (Bld) [#/Vol]0.3 10*3/uL0.0-0.8Corey HospitalMonocytes/100 WBC Auto (Bld)Ordered By: Jorje Small on 09-01-2022 Monocytes/100 WBC (Bld)5.5 %.[facility]y HospitalNeutrophils Auto (Bld) [#/Vol]Ordered By: Jorje Small on 98-05-8372Kjecaefzdfw (Bld) [#/Vol]4.3 10*3/uL1.8-7.7FMansfield HospitalNeutrophils/100 WBC Auto (Bld) Ordered By: Jorje Small on 00-66-4055Qfjaggisstp/100 WBC (Bld)70.1 %.[facility]y HospitalNitrite Test strip Ql (U)Ordered By: Mickey Sheriff on 14-22-6332Ypmknsh Ql (U)NegativeNegativeCorey HospitalNo Panel InformationOrdered By: Mickey Sheriff on 07-06-4393Vrfbclczutcvb TestSee commentCorey HospitalComment on above:See report. Scanned copy available in EMR.No Panel InformationOrdered By: Jorje Small on 09-01-2022 Protein Electrophoresis M-SpikeNot observed g/dLNot ObservedCorey HospitalProtein Electrophoresis NoteSee comment.[facility] HospitalComment on above:Protein electrophoresis scan will follow via computer,mail, or transportation planning technician delivery.Performed at: [facility] [employer] [id number] Director: Pablito Alexander PhD, Phone: [phone] Serum ImmunofixationComment:.[facility]y HospitalComment on above: Presence of monoclonal protein is unclear at this time. Suggestrepeat in 3 to 6 months if clinically indicated.Nucleated erythrocytes [Presence] in Blood by Automated countOrdered By: Jorje Small on 85-82-4975Wflkffnjl RBC Auto Ql (Bld) 0.2 /100{WBC}0-0.5FMansfield HospitalPlatelet mean volume Auto (Bld) [Entitic vol]Ordered By: Jorje Small on 91-24-9298Nwrfvwjt mean volume (Bld) [Entitic vol]8.3 fL6.6-10.1FMansfield HospitalPlatelets Auto (Bld) [#/Vol]Ordered By: Jorje Small on 02-74-3622Ykpwyiiqv (Bld) [#/Vol]217 10*3/xR274-465TgumeokplCorey HospitalProtein Auto test strip (U) [Mass/Vol]Ordered By: Mickey Sheriff on 77-38-5510Dyuutgb (U) [Mass/Vol]mg/dL NegativeCorey HospitalProtein [Mass/volume] in Serum or PlasmaOrdered By: Jorje Small on 47-18-8612Tudhtpo [Mass/Vol]5.9 g/dL6.0-8.5 [facility] HospitalRBC Auto (Bld) [#/Vol]Ordered By: Jorje Small on 76-16-5973VKN (Bld) [#/Vol]3.16 10*6/uL3.90-5.60[facility] Hospitalerum globulin measurement (mass/volume)Ordered By: Jorje Small on 33-17-3039Dmtnutmq (S) [Mass/Vol]3.0 g/dL2.2-3.9[facility] Hospitalerum or plasma albumin/globulin mass ratioOrdered By: Jorje Small on 90-28-3009Xdrfscr/Globulin [Mass ratio]1.0 {ratio}0.7-1.7FMary Rutan Hospitalerum or plasma alpha 1 globulin measurement by electrophoresis (mass/volume)Ordered By: Jorje Small on 00-52-7451Xiitp 1 globulin Elph [Mass/Vol]0.2 g/dL0.0-0.4FMary Rutan Hospitalerum or plasma alpha 2 globulin measurement by electrophoresis (mass/volume)Ordered By: Jorje Small on 73-30-4899Abcuj 2 globulin Elph [Mass/Vol]0.9 g/dL0.4-1.0[facility] Hospitalerum or plasma beta globulin measurement by electrophoresis (mass/volume)Ordered By: Jorje Small on 98-93-4294Lhwr globulin Elph [Mass/Vol] 0.8 g/dL0.7-1.3FMary Rutan Hospitalerum or plasma gamma globulin measurement by electrophoresis (mass/volume)Ordered By: Jorje Small on 81-94-8126Rqnfa globulin Elph [Mass/Vol]1.1 g/dL0.4-1.8[facility] Hospitalpecific gravity Auto test strip (U) [Rel density]Ordered By: Mickey Sheriff on 48-40-2639Dlacwvqj gravity (U) [Rel density]1.0161.001-1.030 [facility] Hospitalquamous epithelial cells detection in urine sediment by light microscopyOrdered By: Mickey Sheriff on 84-93-4544Tsxejuzocq cells.squamous LM Ql (Urine sed)5-9 [HPF]0-2FMansfield Hospital Urine bacteria detection by automated methodOrdered By: Mickey Sheriff on 44-63-5386Iashhvjg Auto Ql (U)None seenNone SeenCorey HospitalUrine clarity by refractometry automatedOrdered By: Mickey Sheriff on 17-07-2660Ioemevz Refractometry automated (U)CloudyCleAdena Pike Medical CenterUrine glucose measurement by automated test strip (mass/volume) Ordered By: Mickey Sheriff on 20-22-9000Vgozhte Auto test strip (U) [Mass/Vol] >=1000 mg/dLNormKettering Health TroyUrine hemoglobin detection by automated test stripOrdered By: Mickey Sheriff on 48-59-7671Jquvaprkwn Auto test strip Ql (U)TraceNegFulton County Health CenterUrine leukocyte esterase detection by automated test stripOrdered By: Mickey Sheriff on 14-60-8192Birxrmzwu esterase Auto test strip Ql (U)NegativeNegFulton County Health CenterUrine microalbumin measurement with detection limit of 20 mg/L or less (mass/volume)Ordered By: Mickey Sheriff on 35-67-6806Axikrvp DL <= 20 mg/L (U) [Mass/Vol]See comment0.0-1.8[facility] Comment on above:[facility] LABSEE REPORTUrine sediment renal epithelial cell count by microscopy (number/high power field)Ordered By: Mickey Sheriff on 66-90-4176Buzavmwkth cells.renal LM.HPF (Urine sed) [#/Area]None seen [HPF]0-1FMansfield HospitalUrobilinogen Auto test strip (U) [Mass/Vol]Ordered By: Mickey Sheriff on 96-68-4295Qhsmllbewcxj (U) [Mass/Vol] Normal mg/dLNormalCorey HospitalWBC Auto (Bld) [#/Vol]Ordered By: Jorje Small on 55-55-6052BUI (Bld) [#/Vol]6.2 10*3/uL4.1-10.5FMansfield HospitalpH Auto test strip (U)Ordered By: Mickey Sheriff on 37-56-4605kJ (U)5.0 [pH]5.0-9.0[facility] HospitalAlbumin [Mass/volume] in Serum or PlasmaOrdered By: Angel Cook on 05-97-3235Oglzsxa [Mass/Vol]2.6 g/dL3.2-5.5FMansfield HospitalCT biopsyOrdered By: Angel Georger on 82-28-2187Vekclnksjud [Mass/Vol]143 mg/iU526-354UwsrdjtdqCorey HospitalCreatinine and Glomerular filtration rate.predicted panel (S/P/Bld)Ordered By: Angel Cook on 85-49-9369Hapocvbthx [Mass/Vol]3.58 mg/dL 0.64-1.27Core[facility] HospitalErythrocyte distribution width Auto (RBC) [Ratio]Ordered By: Angel Joyce on 72-73-4809Fgrgzvryklg distribution width (RBC) [Ratio]13.6 %12.0-14.8[facility] HospitalEstimated glomerular filtration rate (GFR) non- AmericanOrdered By: Angel Joyce on 72-17-4512OVS/1.73 sq M.predicted among non-blacks MDRD (S/P/Bld) [Vol rate/Area]19 mL/MinCorey HospitalFerritin [Mass/volume] in Serum or PlasmaOrdered By: Angel Joyce on 58-80-6470Jtpzeimn [Mass/Vol]135.6 ng/mL23.9-336.2FMansfield HospitalHematocrit Auto (Bld) [Volume fraction]Ordered By: Angel Cook on 82-12-8454Eogdhcwldc (Bld) [Volume fraction] 28.6 %38.8-50.0[facility] HospitalHemoglobin [Mass/volume] in BloodOrdered By: Angel Joyce on 25-17-9400Mgyxlhfbfh (Bld) [Mass/Vol]10.0 g/dL 13.0-17.0Core[facility] HospitalIron [Mass/volume] in Serum or Plasma Ordered By: Angel Joyce on 31-23-9477Ghpn [Mass/Vol]68 ug/qH06-474QiubuxkmbCorey HospitalIron binding capacity [Mass/volume] in Serum or Plasma Ordered By: Angel Joyce on 58-43-0325Wako binding capacity [Mass/Vol]200 ug/dL 255-450Corey HospitalIron saturation [Mass Fraction] in Serum or PlasmaOrdered By: Angel Joyce on 22-78-3427Drlm saturation [Mass fraction] 34.0 %20-50Core[facility] HospitalLaboratory - Chemistry and Chemistry - challengeOrdered By: Angel Joyce on 03-38-4414Wbsacltfl [Mass/Vol]2.0 mg/dL 1.6-2.6FMansfield HospitalLeukocytes [#/volume] corrected for nucleated erythrocytes in Blood by Automated counOrdered By: Angel Joyce on 32-50-0630VGW corrected for nucl RBC Auto (Bld) [#/Vol]10.0 10*3/uL4.1-10.5 [facility] Auto (RBC) [Entitic mass]Ordered By: Angel Joyce on 26-26-5959FTK (RBC) [Entitic mass]29.8 pg27.5-35.2FPremier Health Upper Valley Medical CenterHC Auto (RBC) [Mass/Vol]Ordered By: Angel Joyce on 08-17-2022 MCHC (RBC) [Mass/Vol]35.0 g/dL32.5-35.6FMansfield HospitalMCV Auto (RBC) [Entitic vol]Ordered By: Angel Joyce on 68-45-2181RHA (RBC) [Entitic vol] 85.3 fL83.5-101Corey HospitalNo Panel InformationOrdered By: Angel Cook on 62-19-598744169145-Jzpqera Vitamin D Total13.1 ng/iW77-173SkaefxfvkCorey HospitalComment on above:VITAMIN D STATUS 25(OH)VITAMIN D RANGE (ng/mL) Deficient <20 Insufficient 20 to <88Wvvagjvkvc82 to 100Reference: Vanna MF,Chemo OGLESBY, Sergey SIMENTAL, et al. Evaluation,treatment, and prevention of vitamin D deficiency; an Endocrine Society clinical practice guideline. JCEM. 2010; 96(7):1911-30.Estimated GFR ()23 mL/MinCorey HospitalComment on above:GFR estimated reference range: According to KDOQI guidelines, <60 ml/min/1.73m2 is sufficient todiagnose a patient with chronic kidney disease.Pharmacy Creatinine Clearance (ChemN/[facility] Medical CenterPhosphate [Mass/volume] in Serum or PlasmaOrdered By: Angel Cook on 97-70-5923Gbawgfdgx [Mass/Vol]5.0 mg/dL2.5-4.6FMansfield HospitalPlatelet mean volume Auto (Bld) [Entitic vol]Ordered By: Angel Cook on 36-44-6490Vkgwllrl mean volume (Bld) [Entitic vol]8.3 fL6.6-10.1FMansfield HospitalPlatelets Auto (Bld) [#/Vol]Ordered By: Angel Cook on 47-75-6103Gjoncahxk (Bld) [#/Vol]205 10*3/lF120-492LetafiyfqCorey HospitalRBC Auto (Bld) [#/Vol]Ordered By: Angel Cook on 87-41-1080JZQ (Bld) [#/Vol]3.35 10*6/uL3.90-5.60[facility] Hospitalerum or plasma anion gap determinationOrdered By: Angel Cook on 02-33-6615Jeyad gap [Moles/Vol]9.9 mmol/L6.0-15.0[facility] Hospitalerum or plasma calcium measurement (mass/volume)Ordered By: Angel Cook on 61-84-1424Rsavjba [Mass/Vol]8.4 mg/dL8.2-10.2FMary Rutan Hospitalerum or plasma chloride measurement (moles/volume)Ordered By: Angel Cook on 95-47-0037Ellfbdkk [Moles/Vol]107 mmol/H02-651EpmswsbpmMagruder Memorial Hospitalerum or plasma glucose measurement (mass/volume)Ordered By: Angel Cook on 04-27-7589Mlndykw [Mass/Vol]202 mg/mJ43-124HrfbgvxkzCorey HospitalComment on above:ADA recommended reference rangeRandom Glucose Reference Range is dependent on time and content of last meal. Glucose of more than 200 mg/dL in a nonstressed, ambulatory subject supports the diagnosisof Diabetes Mellitus.Serum or plasma intact parathyroid hormone measurement (mass/volume)Ordered By: Angel Cook on 62-72-4705Cqdvkmnpgi.intact [Mass/Vol]253.7 pg/uA78-56KzneuiumjMagruder Memorial Hospitalerum or plasma potassium measurement (moles/volume)Ordered By: Angel Cook on 10-22-0103Uiauymnpv [Moles/Vol]5.0 mmol/L3.5-5.1FMary Rutan Hospitalerum or plasma sodium measurement (moles/volume)Ordered By: Angel Cook on 41-22-6765Oodqiv [Moles/Vol]136 mmol/C049-264ErexqfddsMagruder Memorial Hospitalerum or plasma total carbon dioxide measurement (moles/volume) Ordered By: Angel Cook on 97-09-3643GP5 [Moles/Vol]24.1 mmol/L22.0-30.0 [facility] Hospitalerum or plasma urea nitrogen measurement (mass/volume)Ordered By: Angel Cook on 73-96-5843Jftz nitrogen [Mass/Vol]47 mg/dL9-23[facility] Hospitalerum or plasma uric acid measurement (mass/volume)Ordered By: Angel Cook on 47-61-4061Hkdch [Mass/Vol]6.6 mg/dL 2.6-7.2FMansfield HospitalAutomated erythrocytes count in urine sediment (number/area)Ordered By: Tenzin Ortiz on 67-51-2539ZGK Auto (Urine sed) [#/Area]10-19 [HPF]0-4FMansfield HospitalAutomated leukocytes count in urine sediment (number/area)Ordered By: Tenzin Ortiz on 08-29-3290TUH Auto (Urine sed) [#/Area]1-2 [HPF]0-4FMansfield HospitalBilirubin Test strip Ql (U)Ordered By: Tenzin Ortiz on 06-66-4367Jtfwgvttx Ql (U) NegativeNegativeCorey HospitalColor Auto (U)Ordered By: Tenzin Ortiz on 38-30-4909Mcrot (U)YellowYellowCorey HospitalGlucose Glucometer (BldC) [Mass/Vol]Ordered By: Law Cano on 85-75-3760Lnvkryc [Mass/Vol]276 mg/dLCorey HospitalComment on above:Random Glucose Reference Range is dependent on time and content of last meal. Glucose of more than 200 mg/dL in a nonstressed, ambulatory subject supports the diagnosis of Diabetes Mellitus.Ketones Auto test strip (U) [Mass/Vol]Ordered By: Tenzin Ortiz on 29-80-7875Zcrzxyu (U) [Mass/Vol]Negative NegativeCorey HospitalLaboratory - Chemistry and Chemistry - challengeOrdered By: Isidoro Mesa on 91-43-4104Qwasxxqpw [Mass/Vol]1.9 mg/dL 1.6-2.6FMansfield HospitalLaboratory - UrinalysisOrdered By: Tenzin Ortiz on 45-74-6585Bkizkyi casts LM Ql (Urine sed)0-8 [LPF]0-8Corey HospitalNitrite Test strip Ql (U)Ordered By: Tenzin Ortiz on 28-19-5863Xnffcgg Ql (U)NegativeNegativeCorey HospitalProtein Auto test strip (U) [Mass/Vol]Ordered By: Tenzin Ortiz on 45-99-5950Bnobqij (U) [Mass/Vol]300 mg/dLNegMartin Memorial Hospitalpecific gravity Auto test strip (U) [Rel density]Ordered By: Tenzin Ortiz on 08-13-2022 Specific gravity (U) [Rel density]1.0111.001-1.030[facility] Hospitalquamous epithelial cells detection in urine sediment by light microscopy Ordered By: Tenzin Ortiz on 64-94-5202Vmcmnmmizn cells.squamous LM Ql (Urine sed)0-1 [HPF]0-2FMansfield HospitalTroponin I.cardiac [Mass/volume] in Serum or Plasma by High sensitivity methodOrdered By: Isidoro Mesa on 79-72-8348Dptdiiud I.cardiac High sensitivity method [Mass/Vol]31 pg/mL0-20Core[facility] HospitalUrine bacteria detection by automated methodOrdered By: Tenzin Ortiz on 59-18-9737Attpikmj Auto Ql (U)None seenNone SeenCorey HospitalUrine clarity by refractometry automated Ordered By: Tenzin Ortiz on 01-52-3562Dbvpxie Refractometry automated (U)Clear ClearCorey HospitalUrine glucose measurement by automated test strip (mass/volume)Ordered By: Tenzin Ortiz on 61-31-9324Hhdgggz Auto test strip (U) [Mass/Vol]250 mg/dLNoMagruder Memorial HospitalUrine hemoglobin detection by automated test stripOrdered By: Tenzin Ortiz on 78-38-3711Tdtuvsnokl Auto test strip Ql (U)1+NegativeCorey HospitalUrine leukocyte esterase detection by automated test stripOrdered By: Tenzin Ortiz on 03-50-3147Vbofctgsx esterase Auto test strip Ql (U)Negative NegativeCorey HospitalUrobilinogen Auto test strip (U) [Mass/Vol]Ordered By: Tenzin Ortiz on 19-70-9735Fjmotyyaroam (U) [Mass/Vol] Normal mg/dLNoMagruder Memorial HospitalpH Auto test strip (U)Ordered By: Tenzin Ortiz on 18-74-9114pK (U)5.5 [pH]5.0-9.0[facility] HospitalActivated partial thromboplastin time (aPTT) in platelet poor plasma by coagulation aOrdered By: Tenzin Ortiz on 03-72-5751oPKE Coag (PPP) [Time]36.3 s 25.1-36.5FMansfield HospitalAlbumin [Mass/volume] in Serum or PlasmaOrdered By: Tenzin Ortiz on 75-74-6091Nsopboo [Mass/Vol]2.4 g/dL3.2-5.5 [facility] HospitalBasophils Auto (Bld) [#/Vol]Ordered By: Tenzin Ortiz on 17-70-5078Jxxuxzfgl (Bld) [#/Vol]0.1 10*3/uL0.0-0.2FMansfield HospitalBasophils/100 WBC Auto (Bld)Ordered By: Tenzin Ortiz on 34-54-6806Dljgxjwso/100 WBC (Bld)1.5 %.[facility] HospitalCreatine kinase [Enzymatic activity/volume] in Serum or PlasmaOrdered By: Tenzin Ortiz on 90-69-1827ZO [Catalytic activity/Vol]236 U/X54-577IkxuqhuzuCorey HospitalCreatinine and Glomerular filtration rate.predicted panel (S/P/Bld)Ordered By: Tenzin Ortiz on 02-07-7278Szmdineeup [Mass/Vol]3.85 mg/dL0.64-1.27Core[facility] HospitalEosinophils Auto (Bld) [#/Vol]Ordered By: Tenzin Ortiz on 34-36-6364Sguvobtvego (Bld) [#/Vol]0.1 10*3/uL0.0-0.45Core[facility] HospitalEosinophils/100 WBC Auto (Bld)Ordered By: Tenzin Ortiz on 46-57-8401Rtkopdbnzoc/100 WBC (Bld)2.7 %.[facility] Erythrocyte distribution width Auto (RBC) [Ratio]Ordered By: Tenzin Ortiz on 97-64-4919Hgyjoikybik distribution width (RBC) [Ratio]13.6 %12.0-14.8[facility] HospitalEstimated glomerular filtration rate (GFR) non- AmericanOrdered By: Tenzin Ortiz on 06-07-7950ELC/1.73 sq M.predicted among non-blacks MDRD (S/P/Bld) [Vol rate/Area]18 mL/MinCorey HospitalGlobulin Calc (S) [Mass/Vol]Ordered By: Tenzin Ortiz on 08-12-2022 Globulin (S) [Mass/Vol]2.8 g/dLCorey HospitalHematocrit Auto (Bld) [Volume fraction]Ordered By: Tenzin Ortiz on 98-91-7607Obcovvxffj (Bld) [Volume fraction]23.4 %38.8-50.0[facility] HospitalHemoglobin [Mass/volume] in BloodOrdered By: Tenzin Ortiz on 15-45-1064Pfzzupdqrw (Bld) [Mass/Vol]8.3 g/dL13.0-17.0[facility] HospitalLaboratory - CoagulationOrdered By: Tenzin Ortiz on 17-39-3705GS Coag (PPP) [Time]12.0 s 9.0-12.9[facility] HospitalLeukocytes [#/volume] corrected for nucleated erythrocytes in Blood by Automated counOrdered By: Tenzin Ortiz on 17-58-4357JMF corrected for nucl RBC Auto (Bld) [#/Vol]5.4 10*3/uL4.1-10.5 [facility] HospitalLymphocytes Auto (Bld) [#/Vol]Ordered By: Tenzin Ortiz on 99-20-8449Iiwotnfbhmk (Bld) [#/Vol]1.6 10*3/uL1.00-4.8[facility] HospitalLymphocytes/100 WBC Auto (Bld)Ordered By: Tenzin Ortiz on 61-18-2688Nqdyjiqyjkb/100 WBC (Bld)29.2 %.[facility] MCH Auto (RBC) [Entitic mass]Ordered By: Tenzin Ortiz on 55-26-9990KHF (RBC) [Entitic mass]30.1 pg27.5-35.2FMansfield HospitalMCHC Auto (RBC) [Mass/Vol]Ordered By: Tenzin Ortiz on 63-44-9051WKJT (RBC) [Mass/Vol]35.4 g/dL 32.5-35.6FMansfield HospitalMCV Auto (RBC) [Entitic vol]Ordered By: Tenzin Ortiz on 51-91-6251ZKH (RBC) [Entitic vol]85.1 fL83.5-101Core[facility] HospitalMonocyte distribution width [Entitic volume] in Blood by AutomatedOrdered By: Tenzin Ortiz on 42-50-3252Dwcmunou distribution width Auto (Bld) [Entitic vol]17.67 %0.00-20.00Core[facility] HospitalMonocytes Auto (Bld) [#/Vol]Ordered By: Tenzin Ortiz on 62-21-6784Qylpssrme (Bld) [#/Vol] 0.5 10*3/uL0.0-0.8[facility] HospitalMonocytes/100 WBC Auto (Bld) Ordered By: Tenzin Ortiz on 20-02-7660Bryciwfqy/100 WBC (Bld)8.9 %.[facility] HospitalNeutrophils Auto (Bld) [#/Vol]Ordered By: Tenzin Ortiz on 71-90-2202Aojbedvdzvc (Bld) [#/Vol]3.1 10*3/uL1.8-7.7FMansfield HospitalNeutrophils/100 WBC Auto (Bld)Ordered By: Tenzin Ortiz on 11-26-0038Nsnplzhspog/100 WBC (Bld)57.7 %.[facility] HospitalNo Panel InformationOrdered By: Tenzin Ortiz on 72-99-0624Mrzoqwyeg GFR ()21 mL/MinCorey HospitalComment on above:GFR estimated reference range: According to KDOQI guidelines, <60 ml/min/1.73m2 is sufficient todiagnose a patient with chronic kidney disease.Pharmacy Creatinine Clearance (Chem28.24Core[facility] HospitalNucleated erythrocytes [Presence] in Blood by Automated countOrdered By: Tenzin Ortiz on 08-12-2022 Nucleated RBC Auto Ql (Bld)0.1 /100{WBC}0-0.5FMansfield Hospital Platelet mean volume Auto (Bld) [Entitic vol]Ordered By: Tenzin Ortiz on 03-05-6858Hwghgisz mean volume (Bld) [Entitic vol]7.9 fL6.6-10.1FMansfield HospitalPlatelet poor plasma international normalized ratio (INR) by coagulation assay (relatOrdered By: Tenzin Ortiz on 38-84-6963OHN Coag (PPP) [Relative time]1.1 {INR}[facility] HospitalComment on above:INR Therapeutic Range A) Pre- and Peroperative OAT started two weeks before surgery. NOT HIP SURGERY: 1.5 - 2.5 HIP SURGERY: 2 - 3B) Primary and secondary prevention of venous THROMBOSIS: 2 - 3C) Active venous thrombosis, pulmonary embolismand prevention of recurrent venous thrombosis: 2 - 3D) Prevention of arterial thromboembolismincluding patients with mechanical heart valves: 3 - 4.5Platelets Auto (Bld) [#/Vol]Ordered By: Tenzin Ortiz on 05-99-7210Mntfpbnkw (Bld) [#/Vol] 148 10*3/fA941-525ThhgbydjnCorey HospitalProtein [Mass/volume] in Serum or PlasmaOrdered By: Tenzin Ortiz on 95-71-8572Ipfyhfk [Mass/Vol]5.2 g/dL 6.1-7.9Corey HospitalRBC Auto (Bld) [#/Vol]Ordered By: Tenzin Ortiz on 01-21-0808MYD (Bld) [#/Vol]2.74 10*6/uL3.90-5.60[facility] Hospitalerum or plasma alanine aminotransferase measurement without P-5'-P (enzymatic activiOrdered By: Tenzin rOtiz on 31-42-2878IUX No additional P-5'-P [Catalytic activity/Vol]11 U/O52-52CmtrqqxbcCorey Hospital Serum or plasma albumin/globulin mass ratioOrdered By: Tenzin Ortiz on 35-43-7655Khwxxow/Globulin [Mass ratio]0.9 {ratio}[facility] Hospitalerum or plasma alkaline phosphatase measurement (enzymatic activity/volume)Ordered By: Tenzin Ortiz on 12-10-6582DZT [Catalytic activity/Vol]68 U/L70-06MifylwwoeMagruder Memorial Hospitalerum or plasma anion gap determinationOrdered By: Tenzin Ortiz on 56-78-0363Chxgd gap [Moles/Vol] 12.3 mmol/L6.0-15.0[facility] Hospitalerum or plasma aspartate aminotransferase measurement (enzymatic activity/volume)Ordered By: Tenzin Ortiz on 61-68-6537GGS [Catalytic activity/Vol]12 U/V56-57YfsgxiomnMagruder Memorial Hospitalerum or plasma calcium measurement (mass/volume)Ordered By: Tenzin Ortiz on 29-31-8458Dsywrwy [Mass/Vol]7.7 mg/dL8.2-10.2FMary Rutan Hospitalerum or plasma chloride measurement (moles/volume)Ordered By: Tenzin Ortiz on 33-30-5301Xzmbnlto [Moles/Vol]107 mmol/V62-176WvnckxpxkMagruder Memorial Hospitalerum or plasma creatine kinase MB (CKMB)/total creatine kinase (CK) ratio by calculaOrdered By: Tenzin Ortiz on 28-13-0590JE.MB Calc [Catalytic fraction]2.7 %0.00-2.50[facility] Hospitalerum or plasma creatine kinase MB measurement (mass/volume)Ordered By: Tenzin Ortiz on 47-05-7123ON.MB [Mass/Vol]6.6 ng/mL0.6-6.3FMary Rutan Hospitalerum or plasma glucose measurement (mass/volume)Ordered By: Tenzin Ortiz on 39-57-7831Cmzdbbx [Mass/Vol]198 mg/bB01-856KiijgajncCorey Hospital Comment on above:ADA recommended reference rangeRandom Glucose Reference Range is dependent on time and content of last meal. Glucose of more than 200 mg/dL in a nonstressed, ambulatory subject supports the diagnosisof Diabetes Mellitus. Serum or plasma potassium measurement (moles/volume)Ordered By: Tenzin Ortiz on 60-58-7906Xvhafhqwv [Moles/Vol]4.2 mmol/L3.5-5.1FMary Rutan Hospitalerum or plasma sodium measurement (moles/volume)Ordered By: Tenzin Ortiz on 64-22-1371Rpohog [Moles/Vol]136 mmol/A731-180EnxlqznjpMagruder Memorial Hospitalerum or plasma total bilirubin measurement (mass/volume)Ordered By: Tenzin Ortiz on 80-71-3336Elxdwlgys [Mass/Vol]0.4 mg/dL0.3-1.2FMary Rutan Hospitalerum or plasma total carbon dioxide measurement (moles/volume)Ordered By: Tenzin Ortiz on 25-47-2723DZ7 [Moles/Vol]20.9 mmol/L 22.0-30.0[facility] Hospitalerum or plasma urea nitrogen measurement (mass/volume)Ordered By: Tenzin Ortiz on 40-61-9975Ivew nitrogen [Mass/Vol]45 mg/dL9-23Corey HospitalTroponin I.cardiac [Mass/volume] in Serum or Plasma by High sensitivity methodOrdered By: Tenzin Ortiz on 43-24-3764Uqxeuvtg I.cardiac High sensitivity method [Mass/Vol]24 pg/mL0-20Corey HospitalWBC Auto (Bld) [#/Vol]Ordered By: Tenzin Ortiz on 73-44-3102OOW (Bld) [#/Vol]5.4 10*3/uL4.1-10.5FMansfield HospitalCNPNon 82-19-1224EZSIMcjvhosad (TXCTGL) YOEL TAMAYO ([id number]) 1985 M Date Time Provider Department 08/02/22 NAUN WILLISL During your visit today, we recorded the [...] Allergies) Date Reviewed: 10/02/2021 Reviewed by: Zita Gilmore MD - Fully Assessed Reason for Visit: [...] (None) Encounter Status:Closed by NAUN WILLIS on 08/02/22NoKindred Hospital LimaAlbumin [Mass/volume] in Serum or PlasmaOrdered By: Cipriano Stiles on 78-48-1275Kblvivb [Mass/Vol]2.6 g/dL3.2-5.5FMansfield HospitalC reactive protein [Mass/volume] in Serum or Plasma by High sensitivity method Ordered By: Denilson Gomez on 09-79-5763FXU High sensitivity method [Mass/Vol]0.7 mg/LFMansfield HospitalComment on above:Cardiovascular Risk Classification (AHA/CDC)hsCRP < 1.0 mg/l low relative risk for CVDhsCRP 1.0-3.0 mg/l average relative risk for CVDhsCRP > 3.0 mg/l high relative risk for CVDhsCRP > 7.5 mg/l active inflammation*Two results two weeks apart and averaged provide a morestable estimate of hsCRP level.*hsCRP levels > 7.5 mg/l may suggest infection that canlimit the use of this marker forestimation of CVD risk.Cholesterol [Mass/volume] in Serum or PlasmaOrdered By: Denilson Gomez on 01-17-2967Dyvvnfhnbnk [Mass/Vol]164 mg/mL219-078ZbdekxkepCorey HospitalComment on above:Chol less than 200 mg/dl low riskChol 201-239 mg/dl borderline riskChol 240 mg/dl and greater high riskCholesterol in LDL Calc [Mass/Vol]Ordered By: Denilson Gomez on 34-02-6868Xrvyftyttwu in LDL [Mass/Vol]111 mg/dL0-100Corey HospitalComment on above:LDL ATP III CLASSIFICATIONLDL less than 100 mg/dL OptimalLDL 100-129 mg/dL Near or above jcizwkgIHS615-235 mg/dL Borderline highLDL 160-189 mg/dL HighLDL greater than 189 mg/dL Very highCholesterol in VLDL Calc [Mass/Vol]Ordered By: Denilson Gomez on 11-65-1861Rpzbmkabcbh in VLDL [Mass/Vol]16 mg/dLCorey HospitalCreatinine [Mass/volume] in UrineOrdered By: Cipriano Stiles on 07-19-2022 Creatinine (U) [Mass/Vol]76.5 mg/dLCorey HospitalComment on above:No reference range establishedCreatinine and Glomerular filtration rate.predicted panel (S/P/Bld)Ordered By: Cipriano Stiles on 21-68-1200Nrifwminok [Mass/Vol]3.21 mg/dL0.64-1.27Corey HospitalEstimated glomerular filtration rate (GFR) non- AmericanOrdered By: Cipriano Stiles on 74-09-7835NAD/1.73 sq M.predicted among non-blacks MDRD (S/P/Bld) [Vol rate/Area]22 mL/MinCorey HospitalLaboratory - Chemistry and Chemistry - challengeon 86-87-5062Hdaphjnvgwd [Mass/Vol]164\S\308Flhrve041-890 -[facility] [employer] 250 DO Work Phone: Comment on above:Chol less than 200 mg/dl low risk Chol 201-239 mg/dl borderline risk Chol 240 mg/dl and greater high risk Cholesterol in LDL [Mass/Vol]111\S\111above high wbmhqukgd9-155CP-Nbqok [place] [facility]Ch[employer] 250 DO Work Phone: Comment on above:LDL ATP III CLASSIFICATION LDL less than 100 mg/dL Optimal LDL 100-129 mg/dL Near or above optimal LDL 130-159 mg/dL Borderline high LDL 160-189 mg/dL High LDL greater than 189 mg/dL Very highNo Panel Informationon 32-44-0149EOJefferson Healthcare Hospital [employer] 250 DO Work Phone: [phone]\S\0.7NormalMP-[facility] [employer] 250 DO Work Phone: Comment on above:Cardiovascular Risk Classification (AHA/CDC) hsCRP < 1.0 mg/l low relative risk for CVD hsCRP 1.0-3.0 mg/l average relative risk for CVD hsCRP > 3.0 mg/l high relative risk for CVD hsCRP > 7.5 mg/l active inflammation* Two results two weeks apart and averaged provide a more stable estimateof hsCRP level. *hsCRP levels > 7.5 mg/l may suggest infection that can limit the use of this marker for estimation of CVD risk.PERFORMED BY:[place] [address] Ó[place], [place] [phone] MEDICAL DIRECTORLEVY THOMASON M.D.4.6\S\4.6Normal<5.0 -[facility] [employer] EdgeÓscar 250 DO Work Phone: Comment on above:PERFORMED BY:[place] [address]RYÓSCARMEM[place], [place] [id number] MEDICAL DIRECTORLEVY THOMASON M.D.16\S\16NormalMP-[facility] Inverted EdgeGilchrist 250 DO Work Phone: [phone]\S\09Nnicqi71-785VU-AwipsChildren'S [facility] 250 DO Work Phone: Comment on above:TRIG ATP III CLASSIFICATION TRIG less than 150 mg/dL Normal TRIG 150-199 mg/dL Borderline high PJIN416-667 mg/dL High TRIG greater than 500 mg/dL Very high Standard traceable to the Center for Disease Conrtrol and Prevention (CDC) test method.36\S\70Hhvefq11-08OZ-Yxetk [place] [facility] 250 DO Work Phone: Comment on above:HDL CHOL ATP-III CLASSIFICATION Cardiovascular Risk HDL > or equal to 60 mg/dL LOW HDL < 40 mg/dL HIGHNo Panel InformationOrdered By: Cipriano Stiles on [id number] Vitamin D Total8.4 ng/bR92-566UzvuhqablCorey HospitalComment on above:VITAMIN D STATUS 25(OH)VITAMIN D RANGE (ng/mL) Deficient <20 Insufficient 20 to <24Qksvsalzvr37 to 100Reference: Vanna MF,Chemo NC, Sergey SIMENTAL, et al. Evaluation,treatment, and prevention of vitamin D deficiency; an Endocrine Society clinical practice guideline. JCEM. 2010; 96(7):1911-30.C-Peptide1.8 ng/mL1.1-4.4FMansfield HospitalComment on above:C-Peptide reference interval is for fasting patients.Performed at: [facility] [id number] Director: Pablito Alexander PhD, Phone: [phone] GFR ()26 mL/MinCorey HospitalComment on above:GFR estimated reference range: According to KDOQI guidelines, <60 ml/min/1.73m2 is sufficient todiagnose a patient with chronic kidney disease.Pharmacy Creatinine Clearance (ChemN/[facility] CenterPhosphate [Mass/volume] in Serum or PlasmaOrdered By: Cipriano Arshadgh on 64-66-7412Tkyxvqmiv [Mass/Vol]5.7 mg/dL2.5-4.6FMansfield Hospital Serum or plasma anion gap determinationOrdered By: Cipriano Stiles on 07-19-2022 Anion gap [Moles/Vol]11.6 mmol/L6.0-15.0[facility] Hospitalerum or plasma calcium measurement (mass/volume)Ordered By: Cipriano Stiles on 27-40-4317Pephxgm [Mass/Vol]8.3 mg/dL8.2-10.2FMansfield Hospital Serum or plasma chloride measurement (moles/volume)Ordered By: Cipriano Stiles on 64-57-5872Llcpkiky [Moles/Vol]106 mmol/K12-800AtawigcipCorey Hospital Serum or plasma glucose measurement (mass/volume)Ordered By: Cipriano Stiles on 01-29-8310Jukbczn [Mass/Vol]173 mg/kT36-887TxgyhlwdxCorey Hospital Comment on above:ADA recommended reference rangeRandom Glucose Reference Range is dependent on time and content of last meal. Glucose of more than 200 mg/dL in a nonstressed, ambulatory subject supports the diagnosisof Diabetes Mellitus. Serum or plasma high density lipoprotein (HDL) cholesterol measurementOrdered By: Denilson Gomez on 39-03-0432Vaafbpxqeng in HDL [Mass/Vol]36 mg/dN74-13NscffwlnkCorey HospitalComment on above:HDL CHOL ATP-III CLASSIFICATION Cardiovascular RiskHDL > or equal to 60 mg/dL LOWHDL < 40 mg/dL HIGHSerum or plasma potassium measurement (moles/volume)Ordered By: Cipriano Stiles on 48-77-7442Mchejkynq [Moles/Vol]4.2 mmol/L3.5-5.1FMary Rutan Hospitalerum or plasma sodium measurement (moles/volume)Ordered By: Cipriano Stiles on 65-23-0528Rkfzsn [Moles/Vol]137 mmol/X380-697QqibupvksMagruder Memorial Hospitalerum or plasma total carbon dioxide measurement (moles/volume)Ordered By: Cipriano Stiles on 06-20-0524CU7 [Moles/Vol]23.6 mmol/L22.0-30.0[facility] Hospitalerum or plasma total cholesterol/high density lipoprotein (HDL) cholesterol mass ratOrdered By: Denilson Gomez on 07-19-2022 Cholesterol.total/Cholesterol in HDL [Mass ratio]4.6 {ratio}<5.0[facility] Hospitalerum or plasma urea nitrogen measurement (mass/volume) Ordered By: Cipriano Stiles on 66-14-0702Nujx nitrogen [Mass/Vol]50 mg/dL9-23 Corey HospitalTriglyceride [Mass/volume] in Serum or Plasma Ordered By: Denilson Gomez on 20-66-5844Ilkulrxmwboe [Mass/Vol]84 mg/kX84-176 Corey HospitalComment on above:TRIG ATP III CLASSIFICATIONTRIG less than 150 mg/dL NormalTRIG 150-199 mg/dL Borderline highTRIG 200-500 mg/dL High TRIG greater than 500 mg/dL Very highStandard traceable to the Center for Disease Conrtrol and Prevention (CDC) test method. Urine microalbumin measurement with detection limit of 20 mg/L or less (mass/volume)Ordered By: Cipriano Stiles on 59-89-6456Znwqjhp DL <= 20 mg/L (U) [Mass/Vol]313.0 mg/dL0.0-1.8Corey HospitalUrine microalbumin/creatinine mass ratioOrdered By: Cipriano Stiles on 07-19-2022 Albumin/Creatinine DL <= 20 mg/L (U) [Mass ratio]4091.0 mg/g0.0-30.0Corey HospitalComment on above:30-300 mg/g indicates an increased risk for diabetic nephropathy. Greater than 300 mg/g is consistent with clinical nephropathy. (Am. J. Kidney Disease 1995, 25:107)Albumin [Mass/volume] in Serum or PlasmaOrdered By: Zeus Bradley on 85-77-4407Zoclopq [Mass/Vol]2.7 g/dL 3.2-5.5FMansfield HospitalAutomated erythrocytes count in urine sediment (number/area)Ordered By: Zeus Bradley on 57-42-2911GQK Auto (Urine sed) [#/Area]3-4 [HPF]0-4FMansfield HospitalAutomated leukocytes count in urine sediment (number/area)Ordered By: Zeus Bradley on 07-09-2022 WBC Auto (Urine sed) [#/Area]0-1 [HPF]0-4FMansfield Hospital Basophils Auto (Bld) [#/Vol]Ordered By: Zeus Bradley on 71-20-8326Sizzmiwlh (Bld) [#/Vol]0.1 10*3/uL0.0-0.2FMansfield HospitalBasophils/100 WBC Auto (Bld)Ordered By: Zeus Bradley on 73-93-2619Felcwiruc/100 WBC (Bld) 1.3 %.Corey HospitalBilirubin Test strip Ql (U)Ordered By: Zeus Bradley on 19-00-2900Cczumojdb Ql (U)NegativeNegativeCorey HospitalColor Auto (U)Ordered By: Zeus Bradley on 07-09-2022 Color (U)YellowYellowCorey HospitalCreatinine and Glomerular filtration rate.predicted panel (S/P/Bld)Ordered By: Zeus Bradley on 20-89-8577Sdptzwlxzv [Mass/Vol]3.40 mg/dL0.64-1.27Corey HospitalEosinophils Auto (Bld) [#/Vol]Ordered By: Zeus Bradley on 07-09-2022 Eosinophils (Bld) [#/Vol]0.2 10*3/uL0.0-0.45[facility] Eosinophils/100 WBC Auto (Bld)Ordered By: Zeus Bradley on 07-09-2022 Eosinophils/100 WBC (Bld)1.9 %.Corey HospitalErythrocyte distribution width Auto (RBC) [Ratio]Ordered By: Zeus Bradley on 07-09-2022 Erythrocyte distribution width (RBC) [Ratio]13.7 %12.0-14.8Corey HospitalEstimated glomerular filtration rate (GFR) non- Ordered By: Zeus Bradley on 19-25-9499KMQ/1.73 sq M.predicted among non- blacks MDRD (S/P/Bld) [Vol rate/Area]20 mL/MinCorey Hospital Globulin Calc (S) [Mass/Vol]Ordered By: Zeus Bradley on 77-43-1583Mcjvheig (S) [Mass/Vol]3.8 g/dLCorey HospitalGlucose Glucometer (BldC) [Mass/Vol]Ordered By: Zeus Bradley on 75-46-7060Cdjgxhw [Mass/Vol]128 mg/dLCorey HospitalComment on above:Random Glucose Reference Range is dependent on time and content of last meal. Glucose of more than 200 mg/dL in a nonstressed, ambulatory subject supports the diagnosis of Diabetes Mellitus.Hematocrit Auto (Bld) [Volume fraction]Ordered By: Zeus Bradley on 70-71-0248Abyrrrqske (Bld) [Volume fraction]32.4 %38.8-50.0Corey HospitalHemoglobin [Mass/volume] in BloodOrdered By: Zeus Bradley on 95-46-4283Ejshwyebgd (Bld) [Mass/Vol]11.1 g/dL13.0-17.0Corey HospitalKetones Auto test strip (U) [Mass/Vol]Ordered By: Zeus Bradley on 65-18-2045Kczrnsl (U) [Mass/Vol]NegativeNegativeCorey HospitalLaboratory - Chemistry and Chemistry - challengeOrdered By: Zeus Bradley on 84-70-4824Iqhgdmpov [Mass/Vol]1.9 mg/dL1.6-2.6FMansfield HospitalLaboratory - Hematology and Cell countsOrdered By: Zeus Bradley on 45-39-4781Qtbcnjvmj RBC/100 WBC (Bld) [Ratio]0.0 %0-0.5 Core[facility] HospitalLaboratory - UrinalysisOrdered By: Zeus Bradley on 87-75-4572Ubqimjd casts LM Ql (Urine sed)0-8 [LPF]0-8Corey HospitalLeukocytes [#/volume] in Blood by Automated countOrdered By: Zeus Bradley on 87-03-4419ZNK (Bld) [#/Vol]8.2 10*3/uL4.5-11.0Corey HospitalLymphocytes Auto (Bld) [#/Vol]Ordered By: Zeus Bradley on 69-61-8900Vvqmmsjljrz (Bld) [#/Vol]1.3 10*3/uL1.00-4.8Corey HospitalLymphocytes/100 WBC Auto (Bld)Ordered By: Zeus Bradley on 04-98-6474Lofqvttfkzo/100 WBC (Bld)16.2 %.[facility] HospitalH Auto (RBC) [Entitic mass]Ordered By: Zeus Bradley on 07-09-2022 MCH (RBC) [Entitic mass]29.3 pg27.5-35.2FMansfield HospitalMCHC Auto (RBC) [Mass/Vol]Ordered By: Zeus Bradley on 19-05-4988DRUR (RBC) [Mass/Vol]34.2 g/dL32.5-35.6FMansfield HospitalMCV Auto (RBC) [Entitic vol]Ordered By: Zeus Bradley on 80-76-8390OKW (RBC) [Entitic vol] 85.7 fL83.5-101Corey HospitalMonocytes Auto (Bld) [#/Vol] Ordered By: Zeus Bradley on 13-97-1973Gkpkvilln (Bld) [#/Vol]0.4 10*3/uL 0.0-0.8Corey HospitalMonocytes/100 WBC Auto (Bld)Ordered By: Zeus Bradley on 45-74-1477Tikmiqnzu/100 WBC (Bld)4.4 %.Corey HospitalNeutrophils Auto (Bld) [#/Vol]Ordered By: Zeus Bradley on 43-95-3953Cjrakqqdkvu (Bld) [#/Vol]6.2 10*3/uL1.8-7.7FMansfield HospitalNeutrophils/100 WBC Auto (Bld)Ordered By: Zeus Bradley on 07-09-2022 Neutrophils/100 WBC (Bld)76.2 %.Corey HospitalNitrite Test strip Ql (U)Ordered By: Zeus Bradley on 57-69-7043Dbyjqap Ql (U)Negative NegativeCorey HospitalNo Panel InformationOrdered By: Zeus Bradley on 55-05-1318Kjyyjvj Glucose CommentGlu2: cleaned meter Corey HospitalEstimated GFR ()25 mL/Min Corey HospitalComment on above:GFR estimated reference range: According to KDOQI guidelines, <60 ml/min/1.73m2 is sufficient todiagnose a patient with chronic kidney disease.Pharmacy Creatinine Clearance (Chem31.22 Corey HospitalPlatelet mean volume Auto (Bld) [Entitic vol] Ordered By: Zeus Bradley on 67-91-4313Krkcxepd mean volume (Bld) [Entitic vol]8.0 fL6.6-10.1FMansfield HospitalPlatelets Auto (Bld) [#/Vol] Ordered By: Zeus Bradley on 61-41-4225Iaqfypjab (Bld) [#/Vol]228 10*3/uL 150-450Corey HospitalProtein Auto test strip (U) [Mass/Vol] Ordered By: Zeus Bradley on 82-51-4764Lanlbhj (U) [Mass/Vol]mg/dLNegative Corey HospitalProtein [Mass/volume] in Serum or PlasmaOrdered By: Zeus Bradley on 48-27-6604Ryivmyw [Mass/Vol]6.5 g/dL6.1-7.9Corey HospitalRBC Auto (Bld) [#/Vol]Ordered By: Zeus Bradley on 27-25-0668LWH (Bld) [#/Vol]3.78 10*6/uL3.90-5.60[facility] Hospitalerum or plasma alanine aminotransferase measurement without P-5'-P (enzymatic activiOrdered By: Zeus Bradley on 67-34-9874AYN No additional P-5'-P [Catalytic activity/Vol]17 U/T71-20XpmlcunncMagruder Memorial Hospitalerum or plasma albumin/globulin mass ratioOrdered By: Zeus Bradley on 07-09-2022 Albumin/Globulin [Mass ratio]0.7 {ratio}[facility] Hospitalerum or plasma alkaline phosphatase measurement (enzymatic activity/volume)Ordered By: Zeus Bradley on 78-76-7244RPS [Catalytic activity/Vol]79 U/L32-92 [facility] Hospitalerum or plasma anion gap determinationOrdered By: Zeus Bradley on 62-22-4189Pbufp gap [Moles/Vol]7.1 mmol/L6.0-15.0 [facility] Hospitalerum or plasma aspartate aminotransferase measurement (enzymatic activity/volume)Ordered By: Zeus Bradley on 93-38-7060GAR [Catalytic activity/Vol]18 U/N72-15JqodgzfsaMagruder Memorial Hospitalerum or plasma calcium measurement (mass/volume)Ordered By: Zeus Bradley on 70-50-6512Pvwbmuy [Mass/Vol]8.6 mg/dL8.2-10.2FMary Rutan Hospitalerum or plasma chloride measurement (moles/volume)Ordered By: Zeus Bradley on 25-63-3812Allbboyi [Moles/Vol]105 mmol/E50-510OdotrxvzzMagruder Memorial Hospitalerum or plasma glucose measurement (mass/volume)Ordered By: Zeus Bradley on 36-32-8678Quqhetp [Mass/Vol]80 mg/xI62-570KytlygbluCorey HospitalComment on above:ADA recommended reference rangeRandom Glucose Reference Range is dependent on time and content of last meal. Glucose of more than 200 mg/dL in a nonstressed, ambulatory subject supports the diagnosisof Diabetes Mellitus.Serum or plasma potassium measurement (moles/volume)Ordered By: Zeus Bradley on 79-28-0588Zpnydxnlf [Moles/Vol] 4.0 mmol/L3.5-5.1FMary Rutan Hospitalerum or plasma sodium measurement (moles/volume)Ordered By: Zeus Bradley on 66-16-7904Lmkztc [Moles/Vol]133 mmol/C114-496IcagpfukkMagruder Memorial Hospitalerum or plasma total bilirubin measurement (mass/volume)Ordered By: Zeus Bradley on 29-61-8983Iahcqabms [Mass/Vol]0.5 mg/dL0.3-1.2FMansfield Hospital Serum or plasma total carbon dioxide measurement (moles/volume)Ordered By: Zeus Bradley on 14-69-2799OX7 [Moles/Vol]24.9 mmol/L22.0-30.0[facility] Hospitalerum or plasma urea nitrogen measurement (mass/volume) Ordered By: Zeus Bradley 14-10-8457Egwq nitrogen [Mass/Vol]36 mg/dL9-23 [facility] Hospitalpecific gravity Auto test strip (U) [Rel density]Ordered By: Zeus Bradley on 81-45-6405Elqbkcrw gravity (U) [Rel density]1.0091.001-1.030[facility] Hospitalquamous epithelial cells detection in urine sediment by light microscopyOrdered By: Zeus Bradley on 29-34-2815Jvzxuqgrpa cells.squamous LM Ql (Urine sed)0-1 [HPF]0-2 Corey HospitalUrine bacteria detection by automated method Ordered By: Zeus Bradley 48-75-2661Vcyctpko Auto Ql (U)None seenNone SeenCorey HospitalUrine clarity by refractometry automated Ordered By: Zeus Bradley 02-80-6550Mgwvwcg Refractometry automated (U) ClearClearFMansfield HospitalUrine glucose measurement by automated test strip (mass/volume)Ordered By: Zeus Bradley on 07-09-2022 Glucose Auto test strip (U) [Mass/Vol]250 mg/dLNormalCorey HospitalUrine hemoglobin detection by automated test stripOrdered By: Zeus Bradley on 37-55-4096Fppirusivm Auto test strip Ql (U)1+NegativeCorey HospitalUrine leukocyte esterase detection by automated test stripOrdered By: Zeus Bradley on 00-08-7033Vassagvjv esterase Auto test strip Ql (U)NegativeNegativeCorey HospitalUrobilinogen Auto test strip (U) [Mass/Vol]Ordered By: Zeus Bradley on 98-97-4836Pqofwhjdtqnv (U) [Mass/Vol]Normal mg/dLNormalCorey HospitalpH Auto test strip (U)Ordered By: Zeus Bradley on 80-24-7146kC (U)5.5 [pH]5.0-9.0 Corey HospitalOffice Visit (Cardiology)on 76-61-3908Zpvjee-up visitDiagnoses/Problems Assessed ASHD (arteriosclerotic heart disease) (414.00) (I25.10) CHF (congestive heart failure) (428.0) (I50.9) Diabetes mellitus (250.00) (E11.9) Essential hypertension, benign (401.1) (I10) Hyperlipidemia (272.4) (E78.5) NSTEMI, initial episode of care (410.71) (I21.4) Current every day smoker (305.1) (F17.200) 1-2 Packs of cigarettes daily Body mass index (BMI) of 21.0 to 21.9 in adult (V85.1) (Z68.21) History of VA (myocardial infarction) (412) (I25.2) Chronic kidney disease [...] Status:Hold For - Specimen/Data Collection,Retrospective Authorization; Requested for:[id number]; SocHx: Current every day smoker You need to stop smoking. Though it is not easy, more than half of all adult smokers have quit. We encourage you to write down all the reasons you should quit smoking and set a quit date for yourself. Ask us how we can help. You may also call 2-898-GKTHNOW for free resources and assistance.; Status:Complete - Retrospective Authorization; Done: [id number] Tobacco Use Screening; Status:Complete; Done: [id number] Patient Instructions Please bring all medicines, vitamins, [...] labs to be done Chief Complaint YOEL TAMAYO is being seen for a 12 week follow-up of. 37-year-old type I diabetic returns for follow-up. He has had sporadic anginal discomfort. He is now had progressive kidney dysfunction most recent creatinine is 3.5 and is followed by nephrology. Hesustained anterior VA in October 2021 with primary revascularization of the LAD with residual circumflex and RCA disease. His left ventricular function at that time was 40 to 45%. He has underlying type 1 diabetes, progressive/chronic kidney disease as noted, ongoing tobacco use, class II angina. Is [place] [employer] is class IIc and remains hemodynamically stable Recommendations: Tobacco cessation counseling, initiate isosorbide 30 mg daily for known disease and angina complaints, limited echo to assess LV function, obtain lipid panel and high-sensitivity CRPwe will follow-up again in 6 months Surgical [...] TABLET UNDER THE TONGUE EVERY 5 MINUTES UPTO 3 DOSES NEEDED FOR CHEST PAIN. Omeprazole [...] Recorded: 05Jul2022 11:35AM Heart Rate72, R Radial Tuqoopxk463, LUE, Sitting Ndxvlovpo67, LUE, Sitting Height6 ft 1 in Tyehhr185 lb BMI Sysdguyvtx05.11 kg/m2 BSA Calculated1.96 Tobacco Useb) No Falls Screening (Age 18+)c) Not medically indicated Physical Exam Constitutional: alert and in no acute distress. Neck: neck is supple, symmetric, trachea midline, no masses and no thyromegaly . Pulmonary: no increased work (more content not included)...[facility] Tobacco Screening.on 22-89-7661Xqis risk assessmentc) Not medically indicated- [facility] [employer] [address] DO Work Phone: Tobacco use status CPHSb) NoMP-[facility] [employer] [address] DO Work Phone: Automated erythrocytes count in urine sediment (number/area)Ordered By: Angel Cook on 61-30-4731OAY Auto (Urine sed) [#/Area] 5-9 [HPF]0-4FMansfield HospitalAutomated leukocytes count in urine sediment (number/area)Ordered By: Angel Cook on 77-58-1390ZDI Auto (Urine sed) [#/Area]1-2 [HPF]0-4FMansfield HospitalBilirubin Test strip Ql (U)Ordered By: Angel Cook on 94-66-4055Rbtohswdo Ql (U)NegativeNegative Corey HospitalBody fluid albumin measurement (mass/volume) Ordered By: Angel Cook on 63-66-6962Mmbpkqc (Body fld) [Mass/Vol]2.8 g/dL 3.2-5.5FMansfield HospitalCT biopsyOrdered By: Angel Cook on 58-31-7099Jjjcglxcotn [Mass/Vol]166 mg/wU281-177KgdtwmkskCorey HospitalColor Auto (U)Ordered By: Angel Cook on 17-86-0546Qjmnf (U)YellowYellow Corey HospitalCreatinine [Mass/volume] in UrineOrdered By: Angel Cook on 03-16-8453Pslqvjezyh (U) [Mass/Vol]39.6 mg/dLCorey HospitalComment on above:No reference range establishedCreatinine and Glomerular filtration rate.predicted panel (S/P/Bld)Ordered By: Angel Cook on 87-33-1850Qgweukrhga [Mass/Vol]3.30 mg/dL0.64-1.27Corey HospitalErythrocyte distribution width Auto (RBC) [Ratio]Ordered By: Angel Cook on 24-61-2558Ccjxpjvopeh distribution width (RBC) [Ratio]13.6 %12.0-14.8 Corey HospitalEstimated glomerular filtration rate (GFR) non- AmericanOrdered By: Angel Cook on 66-43-6470IUW/1.73 sq M.predicted among non-blacks MDRD (S/P/Bld) [Vol rate/Area]21 mL/MinCorey HospitalFerritin [Mass/volume] in Serum or PlasmaOrdered By: Angel Cook on 77-33-6743Whugjzrm [Mass/Vol]123.9 ng/mL23.9-336.2FMansfield HospitalHematocrit Auto (Bld) [Volume fraction]Ordered By: Angel Cook on 31-34-3813Fgcqhlrsza (Bld) [Volume fraction]33.2 %38.8-50.0Corey HospitalHemoglobin [Mass/volume] in BloodOrdered By: Angel Cook on 32-57-4283Jshqiakagl (Bld) [Mass/Vol]11.4 g/dL13.0-17.0Corey HospitalIron [Mass/volume] in Serum or PlasmaOrdered By: Angel Joyce on 80-64-8404Mujw [Mass/Vol]63 ug/rH86-452NymwuxhqrCorey HospitalIron binding capacity [Mass/volume] in Serum or PlasmaOrdered By: Angel Joyce on 24-79-2743Abxl binding capacity [Mass/Vol]232 ug/pT321-504UcqorivawCorey HospitalIron saturation [Mass Fraction] in Serum or PlasmaOrdered By: Angel Joyce on 78-27-3293Luku saturation [Mass fraction]27.0 %20-50Corey HospitalKetones Auto test strip (U) [Mass/Vol]Ordered By: Angel Joyce on 55-07-8640Epjqamm (U) [Mass/Vol]NegativeNegativeCorey HospitalLaboratory - Chemistry and Chemistry - challengeOrdered By: Angel Coretzdir on 86-68-2025Tdgwiqegi [Mass/Vol]1.9 mg/dL1.6-2.6FMansfield HospitalLaboratory - UrinalysisOrdered By: Angel Cortezdir on 06-29-2022 Hyaline casts LM Ql (Urine sed)0-8 [LPF]0-8[facility] Auto (RBC) [Entitic mass]Ordered By: Angel Joyce on 41-31-1640ARH (RBC) [Entitic mass]29.2 pg27.5-35.2FACMC [facility] Auto (RBC) [Mass/Vol]Ordered By: Angel Joyce on 92-99-0388ONXC (RBC) [Mass/Vol]34.3 g/dL 32.5-35.6FPremier Health Upper Valley Medical CenterV Auto (RBC) [Entitic vol]Ordered By: Angel Joyce on 24-55-6083OIP (RBC) [Entitic vol]85.2 fL83.5-101Corey HospitalNitrite Test strip Ql (U)Ordered By: Angel Cortezdir on 90-96-6738Ljjlzok Ql (U)NegativeNegativeCorey HospitalNo Panel InformationOrdered By: Angel Cook on 47-78-8511Oqxjbaruo GFR ()26 mL/MinCorey HospitalComment on above:GFR estimated reference range: According to KDOQI guidelines, <60 ml/min/1.73m2 is sufficient todiagnose a patient with chronic kidney disease.Pharmacy Creatinine Clearance (ChemN/[facility] CenterPhosphate [Mass/volume] in Serum or PlasmaOrdered By: Angel Cook on 78-35-3033Vushbosel [Mass/Vol]5.0 mg/dL2.5-4.6FMansfield HospitalPlatelet mean volume Auto (Bld) [Entitic vol]Ordered By: Angel Cook on 19-36-1202Rygtsgwb mean volume (Bld) [Entitic vol]8.6 fL6.6-10.1FMansfield HospitalPlatelets Auto (Bld) [#/Vol]Ordered By: Angel Cook on 36-61-8033Hzvktuibb (Bld) [#/Vol]242 10*3/uL 150-450Corey HospitalProtein Auto test strip (U) [Mass/Vol] Ordered By: Angel Cook on 82-01-1258Rmmlqzo (U) [Mass/Vol]300 mg/dLNegative Corey HospitalProtein [Mass/volume] in UrineOrdered By: Angel Cook on 89-20-0454Oyahvfv (U) [Mass/Vol]315 mg/dL0-9Corey HospitalRBC Auto (Bld) [#/Vol]Ordered By: Angel Cook on 95-47-3373ROO (Bld) [#/Vol]3.90 10*6/uL3.90-5.60[facility] Hospitalerum or plasma anion gap determinationOrdered By: Angel Cook on 91-81-5440Iqkga gap [Moles/Vol]13.4 mmol/L6.0-15.0[facility] Hospitalerum or plasma calcium measurement (mass/volume)Ordered By: Angel Cook on 40-46-8379Vhzcfdu [Mass/Vol]8.9 mg/dL8.2-10.2FMary Rutan Hospitalerum or plasma chloride measurement (moles/volume)Ordered By: Angel Cook on 77-81-5044Qxpvlltg [Moles/Vol]101 mmol/L17-548GeyvfvuviMagruder Memorial Hospitalerum or plasma glucose measurement (mass/volume)Ordered By: Angel Cook on 95-00-3850Bljvjdp [Mass/Vol]70 mg/fI15-965CrhsuornlCorey HospitalComment on above:ADA recommended reference rangeRandom Glucose Reference Range is dependent on time and content of last meal. Glucose of more than 200 mg/dL in a nonstressed, ambulatory subject supports the diagnosisof Diabetes Mellitus.Serum or plasma intact parathyroid hormone measurement (mass/volume)Ordered By: Angel Cook on 46-38-1211Bwzpjfjbln.intact [Mass/Vol]244.2 pg/kD36-78TrrskxwutMagruder Memorial Hospitalerum or plasma potassium measurement (moles/volume)Ordered By: Angel Cook on 53-62-9072Zgkpdvlfx [Moles/Vol]4.7 mmol/L3.5-5.1FMary Rutan Hospitalerum or plasma sodium measurement (moles/volume)Ordered By: Angel Cook 73-74-2459Ngfagh [Moles/Vol]133 mmol/L055-484YylhxrzenMagruder Memorial Hospitalerum or plasma total carbon dioxide measurement (moles/volume) Ordered By: Angel Cook on 43-41-5622WP1 [Moles/Vol]23.3 mmol/L22.0-30.0 [facility] Hospitalerum or plasma urea nitrogen measurement (mass/volume)Ordered By: Angel Cook on 15-81-8741Lafw nitrogen [Mass/Vol]35 mg/dL9-23[facility] Hospitalerum or plasma uric acid measurement (mass/volume)Ordered By: Angel Cook on 18-30-8393Ipcan [Mass/Vol]5.7 mg/dL 2.6-7.2FMary Rutan Hospitalpecific gravity Auto test strip (U) [Rel density]Ordered By: Angel Cook on 13-54-4500Igrkavdo gravity (U) [Rel density]1.0071.001-1.030[facility] Hospitalquamous epithelial cells detection in urine sediment by light microscopyOrdered By: Angel Cook on 45-96-1726Iczbegpscw cells.squamous LM Ql (Urine sed)0-1 [HPF]0-2FMansfield HospitalUrine bacteria detection by automated methodOrdered By: Angel Cook on 83-24-6537Grxjukck Auto Ql (U)None seenNone SeenCorey HospitalUrine clarity by refractometry automatedOrdered By: Angel Cook on 21-20-0735Zetpacc Refractometry automated (U)ClearClearFMansfield HospitalUrine glucose measurement by automated test strip (mass/volume)Ordered By: Angel Cook on 08-92-8770Qxefrej Auto test strip (U) [Mass/Vol]Normal mg/dLCorey HospitalUrine hemoglobin detection by automated test stripOrdered By: Angel Cook on 83-43-8020Witmtyobmf Auto test strip Ql (U)1+NegativeCorey HospitalUrine leukocyte esterase detection by automated test stripOrdered By: Angel Cook on 42-08-2292Zsdsslwnx esterase Auto test strip Ql (U)NegativeNegativeCorey HospitalUrine protein/creatinine ratioOrdered By: Angel Cook on 28-48-5993Jaaphop/Creatinine (U) [Ratio]7955 mg/g{Cre}0-200Corey HospitalUrobilinogen Auto test strip (U) [Mass/Vol]Ordered By: Angel Cook on 00-66-5422Wuwtgasvqogq (U) [Mass/Vol]Normal mg/dLNoMagruder Memorial HospitalWBC Auto (Bld) [#/Vol]Ordered By: Angel Cook on 99-99-2357DGV (Bld) [#/Vol]7.3 10*3/uL4.1-10.5FMansfield HospitalpH Auto test strip (U)Ordered By: Angel Cook on 46-83-2071gB (U)6.0 [pH]5.0-9.0Corey HospitalActivated partial thromboplastin time (aPTT) in platelet poor plasma by coagulation aOrdered By: Yobani Hansen on 34-17-2639oSCS Coag (PPP) [Time]42.5 s25.1-36.5FMansfield HospitalAlbumin [Mass/volume] in Serum or PlasmaOrdered By: Yobani Hansen on 96-75-0618Fnkobzu [Mass/Vol]2.3 g/dL 3.2-5.5FMansfield HospitalAutomated erythrocytes count in urine sediment (number/area)Ordered By: Yobani Hansen on 60-40-8429NLU Auto (Urine sed) [#/Area]10-19 [HPF]0-4FMansfield HospitalAutomated leukocytes count in urine sediment (number/area)Ordered By: Yobani Hansen on 81-75-2342CWP Auto (Urine sed) [#/Area]3-4 [HPF]0-4FMansfield HospitalBasophils Auto (Bld) [#/Vol]Ordered By: Yobani Hansen on 98-60-9051Tmlklhsiv (Bld) [#/Vol] 0.1 10*3/uL0.0-0.2FMansfield HospitalBasophils/100 WBC Auto (Bld) Ordered By: Yobani Hansen on 87-08-1987Sbtubwtxv/100 WBC (Bld)1.3 %.Corey HospitalBilirubin Test strip Ql (U)Ordered By: Yobani Hansen on 52-33-2355Jfurdywlr Ql (U)NegativeNegativeCorey HospitalCOVID CepheidOrdered By: Yobani Hansen on 05-77-5162PTIB-CoV-2 (COVID-19) RNA HAO+probe Ql (Unsp spec)[facility] HospitalARS-CoV-2 (COVID-19) Ab IA Ql NegativeNegativeCorey HospitalComment on above:This is a duplicate [employer]ep[employer] Xpert Xpress CoV-2/Flu/RSV Plus RNA by RT-PCR result to be used for statistical tracking purpose only.SARS-CoV-2 (COVID-19) RNA HAO+probe Ql (Unsp spec)[facility] HospitalColor Auto (U)Ordered By: Yobani Hansen on 13-04-3434Ezjvl (U)YellowYellowCore[facility] Hospital Creatinine and Glomerular filtration rate.predicted panel (S/P/Bld)Ordered By: Yobani Hansen on 74-82-5060Xaouoriide [Mass/Vol]3.47 mg/dL0.64-1.27[facility] HospitalEosinophils Auto (Bld) [#/Vol]Ordered By: Yobani Hansen on 62-13-3113Cfjwojufacf (Bld) [#/Vol]0.1 10*3/uL0.0-0.45[facility] HospitalEosinophils/100 WBC Auto (Bld)Ordered By: Yobani Hansen on 06-13-2022 Eosinophils/100 WBC (Bld)0.8 %.[facility] HospitalErythrocyte distribution width Auto (RBC) [Ratio]Ordered By: Yobani Hansen on 06-13-2022 Erythrocyte distribution width (RBC) [Ratio]13.0 %12.0-14.8[facility] HospitalEstimated glomerular filtration rate (GFR) non- Ordered By: Yobani Hansen on 41-05-3022HGX/1.73 sq M.predicted among non-blacks MDRD (S/P/Bld) [Vol rate/Area]20 mL/MinCorey HospitalGlobulin Calc (S) [Mass/Vol]Ordered By: Yobani Hansen on 59-50-9643Dnjnulvn (S) [Mass/Vol] 3.6 g/dLCorey HospitalGlucose Glucometer (BldC) [Mass/Vol] Ordered By: Yobani Hansen on 66-19-8997Yarsvet [Mass/Vol]161 mg/dLCorey HospitalComment on above:Random Glucose Reference Range is dependent on time and content of last meal. Glucose of more than 200 mg/dL in a nonstressed, ambulatory subject supports the diagnosis of Diabetes Mellitus. Hematocrit Auto (Bld) [Volume fraction]Ordered By: Yobani Hansen on 06-13-2022 Hematocrit (Bld) [Volume fraction]34.0 %38.8-50.0[facility] HospitalHemoglobin [Mass/volume] in BloodOrdered By: Yobani Hansen on 06-13-2022 Hemoglobin (Bld) [Mass/Vol]11.3 g/dL13.0-17.0[facility] Ketones Auto test strip (U) [Mass/Vol]Ordered By: Yobani Hansen on 06-13-2022 Ketones (U) [Mass/Vol]NegativeNegativeCorey Hospital Laboratory - Chemistry and Chemistry - challengeOrdered By: Yobani Hansen on 75-40-7582Rbheyl [Catalytic activity/Vol]20.0 U/Y27-10LbvufyavoCorey HospitalNatriuretic peptide B (Bld) [Mass/Vol]733.0 pg/mL5-100[facility] HospitalLaboratory - CoagulationOrdered By: Yobani Hansen on 14-29-1954UA Coag (PPP) [Time]11.7 s9.0-12.9[facility] HospitalLaboratory - Hematology and Cell countsOrdered By: Yobani Hansen on 98-34-4825Zcsvaoyju RBC/100 WBC (Bld) [Ratio]0.1 %0-0.5FMansfield HospitalLaboratory - UrinalysisOrdered By: Yobani Hansen on 27-69-6943Yhpfkso casts LM Ql (Urine sed)0- 8 [LPF]0-8Core[facility] HospitalLeukocytes [#/volume] in Blood by Automated countOrdered By: Yobani Hansen on 16-33-9320XWE (Bld) [#/Vol]9.0 10*3/uL 4.5-11.0Core[facility] HospitalLymphocytes Auto (Bld) [#/Vol]Ordered By: Yobani Hansen on 31-11-2544Caclcjigsws (Bld) [#/Vol]1.1 10*3/uL1.00-4.8 [facility] HospitalLymphocytes/100 WBC Auto (Bld)Ordered By: Yobani Hansen on 48-05-1190Vjbfjivyhvm/100 WBC (Bld)12.6 %.[facility] HospitalMCH Auto (RBC) [Entitic mass]Ordered By: Yobani Hansen on 10-43-2236DLT (RBC) [Entitic mass]28.6 pg27.5-35.2FMansfield HospitalMCHC Auto (RBC) [Mass/Vol]Ordered By: Yobani Hansen on 34-03-8510NDQJ (RBC) [Mass/Vol]33.3 g/dL32.5-35.6FMansfield HospitalMCV Auto (RBC) [Entitic vol] Ordered By: Yobani Hansen on 55-60-2080VDI (RBC) [Entitic vol]86.0 fL83.5-101 [facility] HospitalMonocytes Auto (Bld) [#/Vol]Ordered By: Yobani Hansen on 46-14-7950Jjphueppz (Bld) [#/Vol]0.4 10*3/uL0.0-0.8[facility] HospitalMonocytes/100 WBC Auto (Bld)Ordered By: Yobani Hansen on 06-13-2022 Monocytes/100 WBC (Bld)4.3 %.[facility] HospitalNeutrophils Auto (Bld) [#/Vol]Ordered By: Yobani Hansen on 46-71-2812Vzmwmeuxsvk (Bld) [#/Vol]7.3 10*3/uL1.8-7.7FMansfield HospitalNeutrophils/100 WBC Auto (Bld) Ordered By: Yobani Hansen on 91-45-0891Zycjbgkdvap/100 WBC (Bld)81.0 %.[facility]y HospitalNitrite Test strip Ql (U)Ordered By: Yobani Hansen on 79-25-6850Ocoosxp Ql (U)NegativeNegativeCorey HospitalNo Panel InformationOrdered By: Yobani Hansen on 60-14-0877Nqcdcgxkx GFR ()24 mL/MinCorey HospitalComment on above:GFR estimated reference range: According to KDOQI guidelines, <60 ml/min/1.73m2 is sufficient todiagnose a patient with chronic kidney disease.Pharmacy Creatinine Clearance (Chem29.92[facility] HospitalPlatelet mean volume Auto (Bld) [Entitic vol]Ordered By: Yobani Hansen on 94-07-4921Texfgjgn mean volume (Bld) [Entitic vol]8.1 fL6.6-10.1FMansfield HospitalPlatelet poor plasma international normalized ratio (INR) by coagulation assay (relatOrdered By: Yobani Hansen on 46-12-9744FTS Coag (PPP) [Relative time]1.0 {INR}[facility] HospitalComment on above:INR Therapeutic Range A) Pre- and Peroperative OAT started two weeks before surgery. NOT HIP SURGERY: 1.5 - 2.5 HIP SURGERY: 2 - 3B) Primary and secondary prevention of venous THROMBOSIS: 2 - 3C) Active venous thrombosis, pulmonary embolismand prevention of recurrent venous thrombosis: 2 - 3D) Prevention of arterial thromboembolismincluding patients with mechanical heart valves: 3 - 4.5Platelets Auto (Bld) [#/Vol] Ordered By: Yobani Hansen on 48-24-7226Ezvqsnmxf (Bld) [#/Vol]237 10*3/kJ344-447 [facility] HospitalProtein Auto test strip (U) [Mass/Vol]Ordered By: Yobani Hansen on 85-95-4231Ayjkdet (U) [Mass/Vol]300 mg/dLNegativeCorey HospitalProtein [Mass/volume] in Serum or PlasmaOrdered By: Yobani Hansen on 20-57-9744Dvabylo [Mass/Vol]5.9 g/dL6.1-7.9[facility] HospitalRBC Auto (Bld) [#/Vol]Ordered By: Yobani Hansen on 78-57-6682XSA (Bld) [#/Vol]3.95 10*6/uL3.90-5.60[facility] Hospitalerum or plasma alanine aminotransferase measurement without P-5'-P (enzymatic activiOrdered By: Yobani Hansen on 16-13-0200ALE No additional P-5'-P [Catalytic activity/Vol]17 U/T22-00LhcyswdilMagruder Memorial Hospitalerum or plasma albumin/globulin mass ratioOrdered By: Yobani Hansen on 56-65-1731Niolere/Globulin [Mass ratio]0.6 {ratio}[facility] Hospitalerum or plasma alkaline phosphatase measurement (enzymatic activity/volume)Ordered By: Yobani Hansen on 72-74-0816DWS [Catalytic activity/Vol]76 U/U24-11WnzkeuxyvMagruder Memorial Hospitalerum or plasma anion gap determinationOrdered By: Yobani Hansen on 64-88-5740Bglyh gap [Moles/Vol]13.3 mmol/L6.0-15.0[facility] Hospitalerum or plasma aspartate aminotransferase measurement (enzymatic activity/volume)Ordered By: Yobani Hansen on 01-86-1143GQT [Catalytic activity/Vol]20 U/C73-27XiicowqdqMagruder Memorial Hospitalerum or plasma calcium measurement (mass/volume)Ordered By: Yobani Hansen on 94-07-9335Tmejgbe [Mass/Vol]8.8 mg/dL8.2-10.2FMary Rutan Hospitalerum or plasma chloride measurement (moles/volume) Ordered By: Yobani Hansen on 41-86-5417Trnpnsnt [Moles/Vol]105 mmol/L95-114 [facility] Hospitalerum or plasma glucose measurement (mass/volume)Ordered By: Yobani Hansen on 70-58-7526Bnbhmlt [Mass/Vol]163 mg/dL 70-100Corey HospitalComment on above:ADA recommended reference rangeRandom Glucose Reference Range is dependent on time and content of last meal. Glucose of more than 200 mg/dL in a nonstressed, ambulatory subject supports the diagnosisof Diabetes Mellitus.Serum or plasma potassium measurement (moles/volume)Ordered By: Yobani Hansen on 47-21-6632Ossclxirw [Moles/Vol]4.7 mmol/L3.5-5.1FMary Rutan Hospitalerum or plasma sodium measurement (moles/volume)Ordered By: Yobani Hansen on 19-93-4570Khtvqa [Moles/Vol]138 mmol/Y360-207JnnmtsgaoMagruder Memorial Hospitalerum or plasma total bilirubin measurement (mass/volume)Ordered By: Yobani Hansen on 06-13-2022 Bilirubin [Mass/Vol]0.4 mg/dL0.3-1.2FMary Rutan Hospitalerum or plasma total carbon dioxide measurement (moles/volume)Ordered By: Yobani Hansen on 83-26-1493VK6 [Moles/Vol]24.4 mmol/L22.0-30.0[facility] Serum or plasma urea nitrogen measurement (mass/volume)Ordered By: Yobani Hansen on 03-00-6620Jtgc nitrogen [Mass/Vol]47 mg/dL9-[facility] Hospitalpecific gravity Auto test strip (U) [Rel density]Ordered By: Yobani Hansen on 91-94-4802Nflyiljx gravity (U) [Rel density]1.0111.001-1.030[facility] Hospitalquamous epithelial cells detection in urine sediment by light microscopyOrdered By: Yobani Hansen on 11-91-7878Txgykukwqu cells.squamous LM Ql (Urine sed)0-1 [HPF]0-2FMansfield HospitalTroponi I.cardiac [Mass/volume] in Serum or Plasma by High sensitivity methodOrdered By: Yobani Hansen on 83-80-3563Jsutcibe I.cardiac High sensitivity method [Mass/Vol]49 pg/mL 0-20Corey HospitalUrine bacteria detection by automated methodOrdered By: Yobani Hansen on 66-47-9357Kqyelkji Auto Ql (U)None seenNone SeenCorey HospitalUrine clarity by refractometry automated Ordered By: Yobani Hansen on 67-18-1999Yseninb Refractometry automated (U)Clear ClearCorey HospitalUrine glucose measurement by automated test strip (mass/volume)Ordered By: Yobani Hansen on 52-04-4867Qkwjhhk Auto test strip (U) [Mass/Vol]250 mg/dLNoMagruder Memorial HospitalUrine hemoglobin detection by automated test stripOrdered By: Yobani Hansen on 39-24-2495Kqscwdwpya Auto test strip Ql (U)2+NegativeCorey HospitalUrine leukocyte esterase detection by automated test stripOrdered By: Yobani Hansen on 19-32-1972Ksyvwwcaz esterase Auto test strip Ql (U)Negative NegativeCorey HospitalUrobilinogen Auto test strip (U) [Mass/Vol]Ordered By: Yobani Hansen on 84-83-0122Jqzjmxqvqfoq (U) [Mass/Vol]Normal mg/dLNoMagruder Memorial HospitalpH Auto test strip (U)Ordered By: Yobani Hansen on 87-80-4984cZ (U)6.5 [pH]5.0-9.0[facility] Activated partial thromboplastin time (aPTT) in platelet poor plasma by coagulation aOrdered By: Govind Salvador on 18-07-3972uMVI Coag (PPP) [Time]41.0 s 25.1-36.5FMansfield HospitalAlbumin [Mass/volume] in Serum or PlasmaOrdered By: Govind Salvador on 55-62-9357Qtxfwxo [Mass/Vol]2.0 g/dL3.2-5.5 [facility] HospitalBasophils Auto (Bld) [#/Vol]Ordered By: Govind Salvador on 73-05-3254Zydxcqhvy (Bld) [#/Vol]0.1 10*3/uL0.0-0.2FMansfield HospitalBasophils/100 WBC Auto (Bld)Ordered By: Govind Salvador on 06-03-2022 Basophils/100 WBC (Bld)1.2 %.[facility] HospitalCreatine kinase [Enzymatic activity/volume] in Serum or PlasmaOrdered By: Govind Salvador on 48-03-6927ZQ [Catalytic activity/Vol]246 U/T90-208UjdyokwouCorey HospitalCreatinine and Glomerular filtration rate.predicted panel (S/P/Bld)Ordered By: Govind Salvador on 12-06-7073Cqnlymgtpv [Mass/Vol]3.27 mg/dL0.64-1.27[facility] HospitalEosinophils Auto (Bld) [#/Vol]Ordered By: Govind Salvador on 12-31-3330Tahyxxbddgp (Bld) [#/Vol]0.1 10*3/uL0.0-0.45[facility] HospitalEosinophils/100 WBC Auto (Bld)Ordered By: Govind Salvador on 06-03-2022 Eosinophils/100 WBC (Bld)1.9 %.[facility] HospitalErythrocyte distribution width Auto (RBC) [Ratio]Ordered By: Govind Salvador on 06-03-2022 Erythrocyte distribution width (RBC) [Ratio]12.4 %12.0-14.8[facility] HospitalEstimated glomerular filtration rate (GFR) non- Ordered By: Govind Salvador on 73-52-9458JGO/1.73 sq M.predicted among non-blacks MDRD (S/P/Bld) [Vol rate/Area]21 mL/MinCorey HospitalGlobulin Calc (S) [Mass/Vol]Ordered By: Govind Salvador on 43-17-2117Sbcauqcy (S) [Mass/Vol] 3.2 g/dLCorey HospitalHematocrit Auto (Bld) [Volume fraction] Ordered By: Govind Salvador on 23-47-4032Wrhfmrvtra (Bld) [Volume fraction]28.6 % 38.8-50.0[facility] HospitalHemoglobin [Mass/volume] in Blood Ordered By: Govind Salvador on 23-93-7070Ucoiasqcwh (Bld) [Mass/Vol]9.9 g/dL13.0-17.0 [facility] HospitalLaboratory - Chemistry and Chemistry - challengeOrdered By: Govind Salvador on 85-89-2828Ukdxempxxbt peptide B (Bld) [Mass/Vol]569.0 pg/mL5-100[facility] HospitalLaboratory - CoagulationOrdered By: Govind Salvador on 27-85-8103SS Coag (PPP) [Time]12.6 s 9.0-12.9[facility] HospitalLaboratory - Hematology and Cell counts Ordered By: Govind Salvador on 76-65-4942Glljisbpl RBC/100 WBC (Bld) [Ratio]0.1 % 0-0.5FMansfield HospitalLeukocytes [#/volume] in Blood by Automated countOrdered By: Govind Salvador on 54-49-7322RWO (Bld) [#/Vol]6.8 10*3/uL 4.5-11.0[facility] HospitalLymphocytes Auto (Bld) [#/Vol]Ordered By: Govind Salvador on 30-70-9490Oenamsalfgo (Bld) [#/Vol]1.4 10*3/uL1.00-4.8 [facility] HospitalLymphocytes/100 WBC Auto (Bld)Ordered By: Govind Salvador on 48-28-0472Fkcfqwmldvm/100 WBC (Bld)21.1 %.[facility] Auto (RBC) [Entitic mass]Ordered By: Govind Salvador on 10-24-6706AZI (RBC) [Entitic mass]29.3 pg27.5-35.2FMansfield HospitalMCHC Auto (RBC) [Mass/Vol]Ordered By: Govind Salvador on 26-33-9402VMIQ (RBC) [Mass/Vol]34.7 g/dL 32.5-35.6FMansfield HospitalMCV Auto (RBC) [Entitic vol]Ordered By: Govind Salvador on 14-50-1857URM (RBC) [Entitic vol]84.4 fL83.5-101[facility] HospitalMonocytes Auto (Bld) [#/Vol]Ordered By: Govind Salvador on 31-12-2299Flesjszfv (Bld) [#/Vol]0.3 10*3/uL0.0-0.8[facility] HospitalMonocytes/100 WBC Auto (Bld)Ordered By: Govind Salvador on 06-03-2022 Monocytes/100 WBC (Bld)5.1 %.[facility]y HospitalNeutrophils Auto (Bld) [#/Vol]Ordered By: Govind Salvador on 88-52-8949Gxemprvlbcq (Bld) [#/Vol]4.8 10*3/uL1.8-7.7FMansfield HospitalNeutrophils/100 WBC Auto (Bld) Ordered By: Govind Salvador on 59-24-6771Loqxfaavgpm/100 WBC (Bld)70.7 %.[facility]y HospitalNo Panel InformationOrdered By: Govind Salvador on 06-03-2022 Estimated GFR ()26 mL/MinCorey Hospital Comment on above:GFR estimated reference range: According to KDOQI guidelines, <60 ml/min/1.73m2 is sufficient todiagnose a patient with chronic kidney disease.Pharmacy Creatinine Clearance (Chem33.73[facility] HospitalPlatelet mean volume Auto (Bld) [Entitic vol]Ordered By: Govind Salvador on 79-16-3159Kcusxwrs mean volume (Bld) [Entitic vol]8.1 fL6.6-10.1FMansfield HospitalPlatelet poor plasma international normalized ratio (INR) by coagulation assay (relatOrdered By: Govind Salvador on 07-85-0972QSX Coag (PPP) [Relative time]1.1 {INR}[facility] HospitalComment on above:INR Therapeutic Range A) Pre- and Peroperative OAT started two weeks before surgery. NOT HIP SURGERY: 1.5 - 2.5 HIP SURGERY: 2 - 3B) Primary and secondary prevention of venous THROMBOSIS: 2 - 3C) Active venous thrombosis, pulmonary embolismand prevention of recurrent venous thrombosis: 2 - 3D) Prevention of arterial thromboembolismincluding patients with mechanical heart valves: 3 - 4.5Platelets Auto (Bld) [#/Vol]Ordered By: Govind Salvador on 10-13-9205Srazmshol (Bld) [#/Vol]232 10*3/aU262-906CnlasstqbCorey HospitalProtein [Mass/volume] in Serum or PlasmaOrdered By: Govind Salvador on 39-60-0187Azilose [Mass/Vol]5.2 g/dL6.1-7.9 [facility] HospitalRBC Auto (Bld) [#/Vol]Ordered By: Govind Salvador on 50-77-0227DBP (Bld) [#/Vol]3.39 10*6/uL3.90-5.60[facility] Hospitalerum or plasma alanine aminotransferase measurement without P-5'-P (enzymatic activiOrdered By: Govind Salvador on 89-37-1971NXH No additional P-5'-P [Catalytic activity/Vol]13 U/E09-52QdrsvzrfnMagruder Memorial Hospitalerum or plasma albumin/globulin mass ratioOrdered By: Govind Salvador on 06-03-2022 Albumin/Globulin [Mass ratio]0.6 {ratio}[facility] Hospitalerum or plasma alkaline phosphatase measurement (enzymatic activity/volume)Ordered By: Govind Salvador on 61-50-3889GLN [Catalytic activity/Vol]77 U/R05-57AtzxfyekbMagruder Memorial Hospitalerum or plasma anion gap determinationOrdered By: Govind Salvador on 45-82-0477Ehuky gap [Moles/Vol]11.6 mmol/L6.0-15.0[facility] Hospitalerum or plasma aspartate aminotransferase measurement (enzymatic activity/volume)Ordered By: Govind Salvador on 03-57-6222YDF [Catalytic activity/Vol] 15 U/F04-35WbjsqzsrqMagruder Memorial Hospitalerum or plasma calcium measurement (mass/volume)Ordered By: Govind Salvador on 97-96-6271Resktht [Mass/Vol]7.9 mg/dL 8.2-10.2FMary Rutan Hospitalerum or plasma chloride measurement (moles/volume)Ordered By: Govind Salvador on 13-11-1638Kmmglool [Moles/Vol]101 mmol/L 95-114[facility] Hospitalerum or plasma creatine kinase MB (CKMB)/total creatine kinase (CK) ratio by calculaOrdered By: Govind Salvador on 54-21-6406JJ.MB Calc [Catalytic fraction]3.1 %0.00-2.50[facility] Hospitalerum or plasma creatine kinase MB measurement (mass/volume) Ordered By: Govind Salvador on 66-44-0260SL.MB [Mass/Vol]7.7 ng/mL0.6-6.3FMary Rutan Hospitalerum or plasma glucose measurement (mass/volume)Ordered By: Govind Salvador on 61-80-4597Bohllyz [Mass/Vol]185 mg/wS84-553BgneyzebtCorey HospitalComment on above:ADA recommended reference rangeRandom Glucose Reference Range is dependent on time and content of last meal. Glucose of more than 200 mg/dL in a nonstressed, ambulatory subject supports the diagnosisof Diabetes Mellitus.Serum or plasma potassium measurement (moles/volume)Ordered By: Govind Salvador on 42-84-4302Hsxfejutj [Moles/Vol]3.7 mmol/L3.5-5.1FMary Rutan Hospitalerum or plasma sodium measurement (moles/volume)Ordered By: Govind Salvador on 94-06-7748Dygkcr [Moles/Vol]132 mmol/Y253-651FeyfwlqdyMagruder Memorial Hospitalerum or plasma total bilirubin measurement (mass/volume) Ordered By: Govind Salvador on 15-72-8455Udkawgmlk [Mass/Vol]0.4 mg/dL0.3-1.2 [facility] Hospitalerum or plasma total carbon dioxide measurement (moles/volume)Ordered By: Govind Salvador on 43-83-0592RF2 [Moles/Vol] 23.1 mmol/L22.0-30.0[facility] Hospitalerum or plasma urea nitrogen measurement (mass/volume)Ordered By: Govind Salvador on 42-13-6552Mnet nitrogen [Mass/Vol]35 mg/dL9-23Corey HospitalTroponin I.cardiac [Mass/volume] in Serum or Plasma by High sensitivity methodOrdered By: Govind Salvador on 42-38-9891Lpqvsioa I.cardiac High sensitivity method [Mass/Vol]44 pg/mL0-20[facility] HospitalBacterial blood cultureOrdered By: Romain Roy on 66-66-2692Uqtqlstu identified Cx Nom (Bld)NO GROWTH 5 DAYS [facility] HospitalNo Panel InformationOrdered By: Romain Roy on 67-55-8506FQVS Antigen (LFIA)[facility] Activated partial thromboplastin time (aPTT) in platelet poor plasma by coagulation aOrdered By: Romain Roy on 48-59-7402iDOB Coag (PPP) [Time] 38.0 s25.1-36.5FMansfield HospitalBacterial blood cultureOrdered By: Romain Roy on 34-80-9808Xvzsdpvf identified Cx Nom (Bld)NO GROWTH 5 DAYSCorey HospitalBasophils Auto (Bld) [#/Vol]Ordered By: Romain Roy on 92-53-3677Azpunkdws (Bld) [#/Vol]0.1 10*3/uL0.0-0.2FMansfield HospitalBasophils/100 WBC Auto (Bld)Ordered By: Romain Roy on 60-34-2677Gocjiawqx/100 WBC (Bld)1.6 %.[facility] Blood hemoglobin measurement (mass/volume)Ordered By: Romain Roy on 78-59-1650Tjiomxjekr (Bld) [Mass/Vol]11.0 g/dL13.0-17.0[facility] HospitalBlood leukocytes automated count (number/volume)Ordered By: Romain Roy on 65-72-6281HYJ (Bld) [#/Vol]7.6 10*3/uL4.5-11.0[facility] HospitalCOVID-19 SOFIAOrdered By: Romain Roy on 05-21-2022 SARS-CoV+SARS-CoV-2 (COVID-19) Ag IA.rapid Ql (Resp)NegativeNegativeFirelands Regional Medical CenterComment on above:This is a duplicate Jenni SARS Antigen (BARAK) result to be used for statistical tracking purpose only.Creatinine and Glomerular filtration rate.predicted panel (S/P/Bld)Ordered By: Romain Roy on 65-88-9264Ewktfakwgz [Mass/Vol]3.25 mg/dL0.64-1.27Corey HospitalEosinophils Auto (Bld) [#/Vol]Ordered By: Romain Roy on 05-21-2022 Eosinophils (Bld) [#/Vol]0.1 10*3/uL0.0-0.45[facility] Eosinophils/100 WBC Auto (Bld)Ordered By: Romain Roy on 05-21-2022 Eosinophils/100 WBC (Bld)1.8 %.[facility] HospitalErythrocyte distribution width Auto (RBC) [Ratio]Ordered By: Romain Roy on 05-21-2022 Erythrocyte distribution width (RBC) [Ratio]12.6 %12.0-14.8[facility] HospitalEstimated glomerular filtration rate (GFR) non- Ordered By: Romain Roy on 64-30-3679RLF/1.73 sq M.predicted among non- blacks MDRD (S/P/Bld) [Vol rate/Area]22 mL/MinCorey Hospital Hematocrit Auto (Bld) [Volume fraction]Ordered By: Romain Roy on 57-18-2576Pikxupcsco (Bld) [Volume fraction]31.2 %38.8-50.0[facility] HospitalLaboratory - CoagulationOrdered By: Romain Roy on 05-21-2022 PT Coag (PPP) [Time]11.6 s9.0-12.9[facility] HospitalLaboratory - Hematology and Cell countsOrdered By: Romain Roy on 28-41-3411Aazjbejcg RBC/100 WBC (Bld) [Ratio]0.0 %0-0.5FMansfield HospitalLymphocytes Auto (Bld) [#/Vol]Ordered By: Romain Roy on 28-74-5256Efexjkykbwz (Bld) [#/Vol]1.3 10*3/uL1.00-4.8[facility] HospitalLymphocytes/100 WBC Auto (Bld)Ordered By: Romain Roy on 19-99-0630Yrkkeeqtydc/100 WBC (Bld) 17.4 %.[facility]H Auto (RBC) [Entitic mass]Ordered By: Romain Roy on 86-61-7118TXD (RBC) [Entitic mass]29.6 pg27.5-35.2FMansfield HospitalMCHC Auto (RBC) [Mass/Vol]Ordered By: Romain Roy on 11-06-8184PBWV (RBC) [Mass/Vol]35.1 g/dL32.5-35.6FMansfield HospitalMCV Auto (RBC) [Entitic vol]Ordered By: Romain Roy on 23-90-4176DVV (RBC) [Entitic vol]84.3 fL83.5-101Core[facility] HospitalMonocytes Auto (Bld) [#/Vol]Ordered By: Romain Roy on 70-11-7265Vvfhepkbj (Bld) [#/Vol]0.3 10*3/uL0.0-0.8[facility] HospitalMonocytes/100 WBC Auto (Bld)Ordered By: Romain Roy on 74-72-1729Enfuznefy/100 WBC (Bld)4.5 %. [facility]y HospitalNeutrophils Auto (Bld) [#/Vol]Ordered By: Romain Roy on 11-06-6834Fmqomasceyl (Bld) [#/Vol]5.7 10*3/uL1.8-7.7 [facility] HospitalNeutrophils/100 WBC Auto (Bld)Ordered By: Romain Roy on 95-55-6851Rczmdmexvxo/100 WBC (Bld)74.7 %.[facility] HospitalNo Panel InformationOrdered By: Romain Roy on 05-21-2022 Estimated GFR ()26 mL/MinCorey Hospital Comment on above:GFR estimated reference range: According to KDOQI guidelines, <60 ml/min/1.73m2 is sufficient todiagnose a patient with chronic kidney disease.Pharmacy Creatinine Clearance (Chem32.57[facility] HospitalARS Antigen (LFIA)[facility] HospitalPhosphate [Mass/volume] in Serum or PlasmaOrdered By: Romain Roy on 05-21-2022 Phosphate [Mass/Vol]4.4 mg/dL2.5-4.6FMansfield HospitalPlatelet mean volume Auto (Bld) [Entitic vol]Ordered By: Romain Roy on 05-21-2022 Platelet mean volume (Bld) [Entitic vol]8.4 fL6.6-10.1FMansfield HospitalPlatelet poor plasma international normalized ratio (INR) by coagulation assay (relatOrdered By: Romain Roy on 01-29-4759BWG Coag (PPP) [Relative time]1.0 {INR}[facility] HospitalComment on above:INR Therapeutic Range A) Pre- and Peroperative OAT started two weeks before surgery. NOT HIP SURGERY: 1.5 - 2.5 HIP SURGERY: 2 - 3B) Primary and secondary prevention of venous THROMBOSIS: 2 - 3C) Active venous thrombosis, pulmonary embolismand prevention of recurrent venous thrombosis: 2 - 3D) Prevention of arterial thromboembolismincluding patients with mechanical heart valves: 3 - 4.5Platelets Auto (Bld) [#/Vol]Ordered By: Romain Roy on 99-53-9792Nlfrdzjlj (Bld) [#/Vol]216 10*3/lY639-125JivbqbpyjCorey HospitalRBC Auto (Bld) [#/Vol] Ordered By: Romain Roy on 67-91-5918ZSI (Bld) [#/Vol]3.71 10*6/uL3.90-5.60 [facility] Hospitalerum or plasma anion gap determinationOrdered By: Romain Roy on 19-52-6810Sehfq gap [Moles/Vol]13.4 mmol/L6.0-15.0 [facility] Hospitalerum or plasma calcium measurement (mass/volume)Ordered By: Romain Roy on 61-52-1482Qchacje [Mass/Vol]8.3 mg/dL8.2-10.2FMary Rutan Hospitalerum or plasma chloride measurement (moles/volume)Ordered By: Romain Roy on 80-69-6728Ofhnugjp [Moles/Vol]99 mmol/F29-999OpicfjvhaMagruder Memorial Hospitalerum or plasma glucose measurement (mass/volume)Ordered By: Romain Roy on 05-21-2022 Glucose [Mass/Vol]396 mg/mZ60-929WrqbogminCorey HospitalComment on above:ADA recommended reference rangeRandom Glucose Reference Range is dependent on time and content of last meal. Glucose of more than 200 mg/dL in a nonstressed, ambulatory subject supports the diagnosisof Diabetes Mellitus.Serum or plasma potassium measurement (moles/volume)Ordered By: Romain Roy on 92-58-1189Ldkngdwao [Moles/Vol]3.3 mmol/L3.5-5.1FMary Rutan Hospitalerum or plasma sodium measurement (moles/volume)Ordered By: Romain Roy on 15-96-2795Ntangd [Moles/Vol]132 mmol/Q810-112IufzatkoxMagruder Memorial Hospitalerum or plasma total bilirubin measurement (mass/volume)Ordered By: Romain Roy on 70-18-4574Qemutwzoz [Mass/Vol]0.4 mg/dL0.3-1.2FMary Rutan Hospitalerum or plasma total carbon dioxide measurement (moles/volume)Ordered By: Romain Roy on 64-88-5512NW4 [Moles/Vol]22.9 mmol/L22.0-30.0Mag[facility]uder Memorial Hospitalerum or plasma urea nitrogen measurement (mass/volume)Ordered By: Romain Roy on 02-89-1704Mvqr nitrogen [Mass/Vol]36 mg/dL9-23Mag[facility]uder Memorial Hospitalerum or plasma uric acid measurement (mass/volume)Ordered By: Romain Roy on 94-48-5895Iommv [Mass/Vol]6.1 mg/dL2.6-7.2FMansfield HospitalTroponin I.cardiac [Mass/volume] in Serum or Plasma by High sensitivity methodOrdered By: Romain Roy on 28-51-7192Rfbbzkbw I.cardiac High sensitivity method [Mass/Vol]49 pg/mL0-20Corey HospitalUrine lactic acid measurementOrdered By: Romain Roy on 65-62-9660Ulkwgqs (U) [Moles/Vol]0.7 mmol/L0.5-2.2 Corey HospitalActivated partial thromboplastin time (aPTT) in platelet poor plasma by coagulation aOrdered By: Jorje Small on 80-00-8362pIRY Coag (PPP) [Time]38.8 s25.1-36.5FMansfield HospitalBasophils Auto (Bld) [#/Vol]Ordered By: Jorej Small on 08-68-2316Ihhruiwfd (Bld) [#/Vol]0.1 10*3/uL0.0-0.2FMansfield HospitalBasophils/100 WBC Auto (Bld) Ordered By: Jorje Small on 51-93-6396Spgsyxuqu/100 WBC (Bld)1.7 %.[facility] HospitalBlood hemoglobin measurement (mass/volume)Ordered By: Jorje Small on 18-45-3194Xtylsbzsao (Bld) [Mass/Vol]10.6 g/dL13.0-17.0Core[facility] HospitalBlood leukocytes automated count (number/volume)Ordered By: Jorje Small on 09-92-1679LLE (Bld) [#/Vol]7.6 10*3/uL4.5-11.0[facility] HospitalEosinophils Auto (Bld) [#/Vol]Ordered By: Jorje Small on 97-84-2659Gkerbypurra (Bld) [#/Vol]0.1 10*3/uL0.0-0.45Core[facility] HospitalEosinophils/100 WBC Auto (Bld)Ordered By: Jorje Small on 05-18-2022 Eosinophils/100 WBC (Bld)1.7 %.[facility] HospitalErythrocyte distribution width Auto (RBC) [Ratio]Ordered By: Jorje Small on 05-18-2022 Erythrocyte distribution width (RBC) [Ratio]12.9 %12.0-14.8[facility] HospitalHematocrit Auto (Bld) [Volume fraction]Ordered By: Jorje Small on 50-42-2759Svpgyzmmph (Bld) [Volume fraction]30.6 %38.8-50.0[facility] HospitalLaboratory - CoagulationOrdered By: Jorje Small on 43-74-8927DI Coag (PPP) [Time]11.7 s9.0-12.9[facility] HospitalLaboratory - Hematology and Cell countsOrdered By: Jorje Small on 26-44-7731Gjnmvwsce RBC/100 WBC (Bld) [Ratio]0.1 %0-0.5FMansfield HospitalLymphocytes Auto (Bld) [#/Vol]Ordered By: Jorje Small on 04-86-0174Brmdgqvwkgz (Bld) [#/Vol]1.0 10*3/uL1.00-4.8Core[facility] HospitalLymphocytes/100 WBC Auto (Bld) Ordered By: Jorje Small on 02-91-4570Zbjsxjwgkxr/100 WBC (Bld)13.8 %.[facility] Auto (RBC) [Entitic mass]Ordered By: Jorje Small on 88-64-8006KSE (RBC) [Entitic mass]29.5 pg27.5-35.2FMansfield HospitalMCHC Auto (RBC) [Mass/Vol]Ordered By: Jorje Small on 30-76-1673NNFG (RBC) [Mass/Vol]34.5 g/dL32.5-35.6FMansfield HospitalMCV Auto (RBC) [Entitic vol]Ordered By: Jorje Small on 33-68-7207LRO (RBC) [Entitic vol]85.5 fL 83.5-101Core[facility] HospitalMonocytes Auto (Bld) [#/Vol]Ordered By: Jorje Small on 80-48-1816Fmdxsccvg (Bld) [#/Vol]0.3 10*3/uL0.0-0.8Core[facility] HospitalMonocytes/100 WBC Auto (Bld)Ordered By: Jorje Small on 36-99-4503Youqnrcsk/100 WBC (Bld)4.5 %.[facility] Neutrophils Auto (Bld) [#/Vol]Ordered By: Jorje Small on 54-24-0304Udissplbwqs (Bld) [#/Vol]5.9 10*3/uL1.8-7.7FMansfield HospitalNeutrophils/100 WBC Auto (Bld)Ordered By: Jorje Small on 36-47-8035Twbyrictzab/100 WBC (Bld)78.3 %.[facility] HospitalPlatelet mean volume Auto (Bld) [Entitic vol]Ordered By: Jorje Smlal on 72-22-3883Nuyksmxt mean volume (Bld) [Entitic vol]9.0 fL6.6-10.1FMansfield HospitalPlatelet poor plasma international normalized ratio (INR) by coagulation assay (relatOrdered By: Jorje Small on 11-83-0378MMM Coag (PPP) [Relative time]1.0 {INR}Corey HospitalComment on above:INR Therapeutic Range A) Pre- and Peroperative OAT started two weeks before surgery. NOT HIP SURGERY: 1.5 - 2.5 HIP SURGERY: 2 - 3B) Primary and secondary prevention of venous THROMBOSIS: 2 - 3C) Active venous thrombosis, pulmonary embolismand prevention of recurrent venous thrombosis: 2 - 3D) Prevention of arterial thromboembolismincluding patients with mechanical heart valves: 3 - 4.5Platelets Auto (Bld) [#/Vol] Ordered By: Jorje Small on 73-93-3215Ysfsnhqxm (Bld) [#/Vol]215 10*3/yP540-949 Corey HospitalRBC Auto (Bld) [#/Vol]Ordered By: Jorje Small on 87-06-3626JAG (Bld) [#/Vol]3.58 10*6/uL3.90-5.60Core[facility] HospitalAlbumin [Mass/volume] in Serum or PlasmaOrdered By: Angel Cook on 95-24-8265Glvpchi [Mass/Vol]2.5 g/dL2.9-4.4FMansfield Hospital Albumin/Protein.total in 24 hour Urine by ElectrophoresisOrdered By: Angel Cook on 14-11-1543Kfxfaky Elph (24H U) [Mass fraction]78.6 %.[facility] HospitalBlood hemoglobin measurement (mass/volume)Ordered By: Angel Cook on 13-76-9653Jtcwoelvbn (Bld) [Mass/Vol]9.5 g/dL13.0-17.0[facility] HospitalBody fluid albumin measurement (mass/volume)Ordered By: Angel Cook on 02-80-9863Gzjwfiq (Body fld) [Mass/Vol]2.2 g/dL3.2-5.5FMansfield HospitalCT biopsyOrdered By: Angel Cook on 97-17-5110HZ biopsy See -233UgdadxhlbCorey HospitalComment on above:[facility] SEE REPORTTESTING S[facility] TO [facility]SEE REPORTCreatinine [Mass/volume] in Urine Ordered By: Angel Cook on 97-17-8801Cugfvohmxn (U) [Mass/Vol]160.7 mg/dL Corey HospitalComment on above:No reference range established Creatinine and Glomerular filtration rate.predicted panel (S/P/Bld)Ordered By: Angel Cook on 89-58-7580Jpzlpsgkwd [Mass/Vol]3.18 mg/dL0.64-1.27Corey HospitalErythrocyte distribution width Auto (RBC) [Ratio]Ordered By: Angel Cook on 91-32-1466Yfmamtpqueq distribution width (RBC) [Ratio]13.1 % 12.0-14.8Core[facility] HospitalEstimated glomerular filtration rate (GFR) non- AmericanOrdered By: Angel Cook on 44-83-8529FVR/1.73 sq M.predicted among non-blacks MDRD (S/P/Bld) [Vol rate/Area]22 mL/MinCorey HospitalFerritin [Mass/volume] in Serum or PlasmaOrdered By: Angel Cook on 80-93-9533Oumsgshg [Mass/Vol]119.5 ng/mL23.9-336.2FMansfield HospitalGamma globulin/Protein.total in 24 hour Urine by ElectrophoresisOrdered By: Angel Cook on 81-93-5797Ducib globulin Elph (24H U) [Mass fraction]8.7 %.Corey HospitalHematocrit Auto (Bld) [Volume fraction]Ordered By: Angel Cook on 03-09-0161Arfeaparoz (Bld) [Volume fraction]27.1 %38.8-50.0Corey HospitalIgA [Mass/volume] in Serum or PlasmaOrdered By: Angel Joyce on 23-58-4193MxK [Mass/Vol]310 mg/dL 90-386Corey HospitalIgG [Mass/volume] in Serum or Plasma Ordered By: Angel Joyce on 19-05-6327ItQ [Mass/Vol]821 mg/gW957-1236PkjkbsbhsCorey HospitalIgM [Mass/volume] in Serum or PlasmaOrdered By: Angel Joyce on 14-72-8137HmB [Mass/Vol]211 mg/mM58-967AyxpmhlfwCorey HospitalComment on above:Performed at: [place] [id number] Advanced Clinical Specialist: Pablito Alexander PhD, Phone: [phone] at: [email or web address] [id number] Director: Pablito Alexander PhD, Phone: [phone] for UrineOrdered By: Angel Cook on 83-72-4556Aaacrhwsfqgred Immunofixation (U) [Interp]See comment.Corey HospitalComment on above:Immunofixation shows IgG monoclonal protein with kappa light chain specificity. Performed at: [employer] [id number] Advanced Clinical Specialist: Pablito Alexander PhD, Phone: [phone] shows IgG monoclonal protein with kappalight chain specificity.Performed at: [email or web address] [id number] Director: Pablito Alexander PhD, Phone: [phone] light chains.kappa.free [Mass/volume] in Serum Ordered By: Angel Cook on 29-49-5794Hfmysitcuajzxq light chains.kappa.free (S) [Mass/Vol]112.0 mg/L3.3-19.4FMansfield HospitalImmunoglobulin light chains.kappa.free/Immunoglobulin light chains.lambda.free [MassOrdered By: Angel Cook on 09-40-4894Zvczlajzgqygfs light chains.kappa.free/Immunoglobulin light chains.lambda.free (S) [Mass ratio]1.830.26-1.65Corey HospitalComment on above:Performed at: [facility] [place] [id number] Advanced Clinical Specialist: Pablito Alexander PhD, Phone: [phone] at: [employer] [id number] Director: Pablito Alexander PhD, Phone: [phone] light chains.lambda.free [Mass/volume] in Serum or PlasmaOrdered By: Angel Cook on 46-08-3573Fqyyfzwiwwnexo light chains.lambda.free [Mass/Vol]61.3 mg/L5.7-26.3FMansfield Hospital Iron [Mass/volume] in Serum or PlasmaOrdered By: Angel Cook on 68-25-2773Frfx [Mass/Vol]44 ug/xK13-227HpxfkrzacCorey HospitalIron binding capacity [Mass/volume] in Serum or PlasmaOrdered By: Angel Cook on 26-04-7099Dvsq binding capacity [Mass/Vol]TNAdena Health SystemComment on above: Test not performedIron saturation [Mass Fraction] in Serum or PlasmaOrdered By: Angel Cook on 07-44-0260Esvi saturation [Mass fraction]German HospitalComment on above:Test not performedLaboratory - Chemistry and Chemistry - challengeOrdered By: Angel Cook on 65-14-6058Nithnvycv [Mass/Vol] 1.9 mg/dL1.6-2.6FSelect Medical [facility] Auto (RBC) [Entitic mass] Ordered By: Angel Cook on 97-12-9602TPO (RBC) [Entitic mass]30.0 pg27.5-35.2 Corey HospitalMCHC Auto (RBC) [Mass/Vol]Ordered By: Angel Cook on 84-28-0640QNIR (RBC) [Mass/Vol]34.9 g/dL32.5-35.6FMansfield HospitalMCV Auto (RBC) [Entitic vol]Ordered By: Angel Cook on 04-20-2022 MCV (RBC) [Entitic vol]86.0 fL83.5-101Corey HospitalNo Panel InformationOrdered By: Angel Cook on 32-30-0537Jilgfmnfs GFR () 27 mL/MinCorey HospitalComment on above:GFR estimated reference range: According to KDOQI guidelines, <60 ml/min/1.73m2 is sufficient todiagnose a patient with chronic kidney disease.Pharmacy Creatinine Clearance (ChemN/[facility] CenterProtein Electrophoresis M-SpikeComment: g/dLNot ObservedCorey HospitalComment on above:SPE shows asymmetrical gamma.Protein Electrophoresis NoteSee comment.Corey HospitalComment on above:Protein electrophoresis scan will follow via computer, mail, or transportation planning technician delivery. Performed at: [employer] [id number] Advanced Clinical Specialist: Pablito Alexander PhD, Phone: [phone] electrophoresis scan will follow via computer,mail, or transportation planning technician delivery.Performed at: [employer] [address] [id number] Director: Pablito Alexander PhD, Phone: [phone] ImmunofixationComment:.Corey HospitalComment on above:Presence of monoclonal protein is unclear at this time. Suggest repeat in 3 to 6 months if clinically indicated.Presence of monoclonal protein is unclear at this time. Suggestrepeat in 3 to 6 months if clinically indicated. Miscellaneous TestSee commentCorey HospitalComment on above: See report. Scanned copy available in EMR.Urine Random Prot Electrophor NoteSee comment.Corey HospitalComment on above:Protein electrophoresis scan will follow via computer, mail, or transportation planning technician delivery. Performed at: [employer] [address] [id number] Advanced Clinical Specialist: Pablito Alexander PhD, Phone: [phone] electrophoresis scan will follow via computer,mail, or transportation planning technician delivery.Performed at: - [employer] [address] [id number] Director: Pablito Alexander PhD, Phone: [phone] [Mass/volume] in Serum or Plasma Ordered By: Angel Cook on 94-65-8630Pecuazala [Mass/Vol]5.4 mg/dL2.5-4.6 Corey HospitalPlatelet mean volume Auto (Bld) [Entitic vol] Ordered By: Angel Joyce on 27-89-1149Oxypcjff mean volume (Bld) [Entitic vol]8.5 fL6.6-10.1FMansfield HospitalPlatelets Auto (Bld) [#/Vol]Ordered By: Angel Joyce on 63-54-3090Rltayjode (Bld) [#/Vol]252 10*3/nI596-384TzzapxmduCorey HospitalProtein [Mass/volume] in Serum or PlasmaOrdered By: Angel Joyce on 57-89-7545Sqfxllw [Mass/Vol]5.5 g/dL6.0-8.5FMansfield HospitalProtein [Mass/volume] in UrineOrdered By: Angel Joyce on 92-90-0475Owrfnwf (U) [Mass/Vol]840 mg/dL0-9Corey HospitalProtein (U) [Mass/Vol]976.2 mg/dLNot Estab.Corey HospitalComment on above:Results confirmed on dilution.Results confirmed ondilution.Protein.monoclonal/Protein.total in 24 hour Urine by ElectrophoresisOrdered By: Angel Cook on 04-20-2022 Protein.monoclonal Elph (24H U) [Mass fraction]Not observed %Not Observed Corey HospitalRBC Auto (Bld) [#/Vol]Ordered By: Angel Georger on 11-77-8359RUW (Bld) [#/Vol]3.16 10*6/uL3.90-5.60[facility] Hospitalerum globulin measurement (mass/volume)Ordered By: Angel Cook on 57-78-8312Vyzdvcdt (S) [Mass/Vol]3.0 g/dL2.2-3.9[facility] Hospitalerum or plasma albumin/globulin mass ratioOrdered By: Angel Cortezdir on 58-35-5274Vhuiadl/Globulin [Mass ratio]0.8 {ratio}0.7-1.7FMary Rutan Hospitalerum or plasma alpha 1 globulin measurement by electrophoresis (mass/volume)Ordered By: Angel Cook on 03-58-8957Onehs 1 globulin Elph [Mass/Vol]0.3 g/dL0.0-0.4FMary Rutan Hospitalerum or plasma alpha 2 globulin measurement by electrophoresis (mass/volume)Ordered By: Angel Cook on 85-64-2356Quqll 2 globulin Elph [Mass/Vol]1.0 g/dL0.4-1.0[facility] Hospitalerum or plasma anion gap determinationOrdered By: Angel Cook on 74-33-1033Dakzq gap [Moles/Vol]14.6 mmol/L6.0-15.0[facility] Hospitalerum or plasma beta globulin measurement by electrophoresis (mass/volume) Ordered By: Angel Cook on 35-92-1580Fbau globulin Elph [Mass/Vol]0.8 g/dL 0.7-1.3FMary Rutan Hospitalerum or plasma calcium measurement (mass/volume)Ordered By: Angel Georger on 47-70-5028Kadefxh [Mass/Vol]8.2 mg/dL 8.2-10.2FMary Rutan Hospitalerum or plasma chloride measurement (moles/volume)Ordered By: Angel Cortezdir on 88-53-5142Rozwofxk [Moles/Vol]102 mmol/N24-750UmteduxtxMagruder Memorial Hospitalerum or plasma gamma globulin measurement by electrophoresis (mass/volume)Ordered By: Angel Cortezdir on 60-86-2077Gqyjs globulin Elph [Mass/Vol]0.9 g/dL0.4-1.8[facility] Hospitalerum or plasma glucose measurement (mass/volume)Ordered By: Angel Georger on 94-42-2683Ntokxux [Mass/Vol]211 mg/rE95-704YungsoawvCorey HospitalComment on above:ADA recommended reference range Random Glucose Reference Range is dependent on time and content of last meal. Glucose of more than 200 mg/dL in a nonstressed, ambulatory subject supports the diagnosis of Diabetes Mellitus.ADA recommended reference rangeRandom Glucose Reference Range is dependent on time and content of last meal. Glucose of more than 200 mg/dL in a nonstressed, ambulatory subject supports the diagnosisof Diabetes Mellitus.Serum or plasma potassium measurement (moles/volume)Ordered By: Angel Cook on 91-70-9027Cwwurvequ [Moles/Vol]4.0 mmol/L3.5-5.1FMary Rutan Hospitalerum or plasma sodium measurement (moles/volume)Ordered By: Angel Cook on 55-98-5305Azwgwx [Moles/Vol]134 mmol/X976-891QiwmzqwogMagruder Memorial Hospitalerum or plasma total carbon dioxide measurement (moles/volume)Ordered By: Angel Cook on 35-66-0930VE6 [Moles/Vol]21.4 mmol/L 22.0-30.0[facility] Hospitalerum or plasma urea nitrogen measurement (mass/volume)Ordered By: Angel Cook on 39-70-3309Rhfi nitrogen [Mass/Vol]31 mg/dL9-23Corey HospitalUrine alpha 1 globulin/total protein by electrophoresisOrdered By: Angel Cook on 04-20-2022 Alpha 1 globulin Elph (U) [Mass fraction]0.4 %.[facility] Urine alpha 2 globulin/total protein ratio by electrophoresisOrdered By: Angel Cook on 54-73-8812Khqud 2 globulin Elph (U) [Mass fraction]3.8 %.Corey HospitalUrine beta globulin measurement by electrophoresis (mass/volume)Ordered By: Angel Cook on 55-76-4065Ebqo globulin Elph (U) [Mass/Vol]8.6 %.Corey HospitalUrine protein/creatinine ratio Ordered By: Angel Cook on 49-46-0230Ugacliw/Creatinine (U) [Ratio]5227 mg/g{Cre}0-200Fire[facility] Regional Medical CenterWBC Auto (Bld) [#/Vol]Ordered By: Angel Cook on 47-73-5560TCF (Bld) [#/Vol]7.7 10*3/uL4.1-10.5FMansfield HospitalTroponin I.cardiac [Mass/volume] in Serum or Plasma by High sensitivity methodOrdered By: Hector Mann on 87-05-2047Gvzpstfw I.cardiac High sensitivity method [Mass/Vol]31 pg/mL0-20[facility] Activated partial thromboplastin time (aPTT) in platelet poor plasma by coagulation aOrdered By: Hector Mann on 43-52-6006pPMY Coag (PPP) [Time]41.2 s 25.1-36.5FMansfield HospitalBasophils Auto (Bld) [#/Vol]Ordered By: Hector Mann on 61-94-9033Etjmehiti (Bld) [#/Vol]0.1 10*3/uL0.0-0.2 Corey HospitalBasophils/100 WBC Auto (Bld)Ordered By: Hector Mann on 09-12-4262Usldqqkte/100 WBC (Bld)1.8 %.[facility] HospitalBlood hemoglobin measurement (mass/volume)Ordered By: Hector Mann on 80-40-6948Ruqrdxgxww (Bld) [Mass/Vol]9.0 g/dL13.0-17.0Core[facility] HospitalBlolivia hospital and clinics leukocytes automated count (number/volume)Ordered By: Hector Mann on 98-10-6361ICF (Bld) [#/Vol]7.1 10*3/uL4.5-11.0Core[facility] HospitalCreatinine and Glomerular filtration rate.predicted panel (S/P/Bld)Ordered By: Hector Mann on 83-97-8226Dtsjnbigqk [Mass/Vol]2.63 mg/dL0.64-1.27 Corey HospitalEosinophils Auto (Bld) [#/Vol]Ordered By: Hector Mann on 43-20-4441Lacruqeydlg (Bld) [#/Vol]0.2 10*3/uL0.0-0.45Corey HospitalEosinophils/100 WBC Auto (Bld)Ordered By: Hector Mann on 69-60-9480Ctcsotikoeo/100 WBC (Bld)2.4 %.[facility] Erythrocyte distribution width Auto (RBC) [Ratio]Ordered By: Hector Mann on 91-79-8832Hsxbavjnzua distribution width (RBC) [Ratio]13.5 %12.0-14.8Core[facility] HospitalEstimated glomerular filtration rate (GFR) non- AmericanOrdered By: Hector Mann on 86-40-2058VGI/1.73 sq M.predicted among non-blacks MDRD (S/P/Bld) [Vol rate/Area]28 mL/MinCorey HospitalHematocrit Auto (Bld) [Volume fraction]Ordered By: Hector Mann on 05-09-6688Itjfaexcyh (Bld) [Volume fraction]25.8 %38.8-50.0Corey HospitalLaboratory - Chemistry and Chemistry - challengeOrdered By: Hector Mann on 53-02-8568Idwypjjnsll peptide B (Bld) [Mass/Vol]808.0 pg/mL5-100 Core[facility] HospitalLaboratory - CoagulationOrdered By: Hector Mann on 47-28-0168II Coag (PPP) [Time]12.2 s9.0-12.9Corey HospitalLaboratory - Hematology and Cell countsOrdered By: Hector Mann on 85-18-3446Nssouwunp RBC/100 WBC (Bld) [Ratio]0.0 %0-0.5FMansfield HospitalLymphocytes Auto (Bld) [#/Vol]Ordered By: Hector Mann on 01-18-1070Uopdcvicaar (Bld) [#/Vol]1.6 10*3/uL1.00-4.8Corey HospitalLymphocytes/100 WBC Auto (Bld)Ordered By: Hector Mann on 04-09-2022 Lymphocytes/100 WBC (Bld)21.8 %.[facility] Auto (RBC) [Entitic mass]Ordered By: Hector Mann on 60-87-2356YKP (RBC) [Entitic mass] 30.0 pg27.5-35.2FMansfield HospitalMCHC Auto (RBC) [Mass/Vol] Ordered By: Hector Mann on 02-41-4931FEMN (RBC) [Mass/Vol]34.9 g/dL32.5-35.6 Corey HospitalMCV Auto (RBC) [Entitic vol]Ordered By: Hector Mann on 29-56-0022BQC (RBC) [Entitic vol]86.0 fL83.5-101Corey HospitalMonocytes Auto (Bld) [#/Vol]Ordered By: Hector Mann on 02-14-4766Njzorzhei (Bld) [#/Vol]0.3 10*3/uL0.0-0.8Corey HospitalMonocytes/100 WBC Auto (Bld)Ordered By: Hector Mann on 04-09-2022 Monocytes/100 WBC (Bld)4.5 %.Corey HospitalNeutrophils Auto (Bld) [#/Vol]Ordered By: Hector Mann on 99-00-3823Jrpfnqwqvbi (Bld) [#/Vol]4.9 10*3/uL1.8-7.7FMansfield HospitalNeutrophils/100 WBC Auto (Bld) Ordered By: Hector Mann on 86-65-2074Olrxnvahkwa/100 WBC (Bld)69.5 %.[facility]y HospitalNo Panel InformationOrdered By: Hector Mann on 59-52-2915Utxammmgd GFR ()33 mL/MinCorey HospitalComment on above:GFR estimated reference range: According to KDOQI guidelines, <60 ml/min/1.73m2 is sufficient todiagnose a patient with chronic kidney disease.Pharmacy Creatinine Clearance (Chem41.94Corey HospitalPlatelet mean volume Auto (Bld) [Entitic vol]Ordered By: Hector Mann on 42-02-2574Gnsedxea mean volume (Bld) [Entitic vol]7.9 fL6.6-10.1 Corey HospitalPlatelet poor plasma international normalized ratio (INR) by coagulation assay (relatOrdered By: Hector Mann on 04-09-2022 INR Coag (PPP) [Relative time]1.1 {INR}Corey HospitalComment on above:INR Therapeutic Range A) Pre- and Peroperative OAT started two weeks before surgery. NOT HIP SURGERY: 1.5 - 2.5 HIP SURGERY: 2 - 3 B) Primary and secondary prevention of venous THROMBOSIS: 2 - 3 C) Active venous thrombosis, pulmonary embolism and prevention of recurrent venous thrombosis: 2 - 3 D) Prevention of arterial thromboembolism including patients with mechanical heart valves: 3 - 4.5INR Therapeutic Range A) Pre- and Peroperative OAT started two weeks before surgery. NOT HIP SURGERY: 1.5 - 2.5 HIP SURGERY: 2 - 3B) Primary and secondary prevention of venous THROMBOSIS: 2 - 3C) Active venous thrombosis, pulmonary embolismand prevention of recurrent venous thrombosis: 2 - 3D) Prevention of arterial thromboembolismincluding patients with mechanical heart valves: 3 - 4.5Platelets Auto (Bld) [#/Vol]Ordered By: Hector Mann on 80-15-1143Ujrsjrkmh (Bld) [#/Vol] 215 10*3/mQ464-075TzlfgditjCorey HospitalRBC Auto (Bld) [#/Vol]Ordered By: Hector Mann on 69-67-0249TKL (Bld) [#/Vol]3.00 10*6/uL3.90-5.60[facility] Hospitalerum or plasma calcium measurement (mass/volume)Ordered By: Hector Mann on 05-92-1554Himyulv [Mass/Vol]8.0 mg/dL8.2-10.2FMary Rutan Hospitalerum or plasma chloride measurement (moles/volume) Ordered By: Hector Mann on 04-45-8149Mkzblaga [Moles/Vol]104 mmol/L95-114 [facility] Hospitalerum or plasma glucose measurement (mass/volume)Ordered By: Hector Mann on 27-27-5918Mawolma [Mass/Vol]236 mg/dL 70-100Corey HospitalComment on above:ADA recommended reference range Random Glucose Reference Range is dependent on time and content of last meal. Glucose of more than 200 mg/dL in a nonstressed, ambulatory subject supports the diagnosis of Diabetes Mellitus.ADA recommended reference rangeRandom Glucose Reference Range is dependent on time and content of last meal. Glucose of more than 200 mg/dL in a nonstressed, ambulatory subject supports the diagnosisof Diabetes Mellitus.Serum or plasma potassium measurement (moles/volume)Ordered By: Hector Mann on 55-34-4306Iwvgugdiu [Moles/Vol]3.7 mmol/L3.5-5.1FMary Rutan Hospitalerum or plasma sodium measurement (moles/volume)Ordered By: Hector Mann on 85-32-8915Ffivzh [Moles/Vol]134 mmol/Y129-110NjladpayuMagruder Memorial Hospitalerum or plasma total carbon dioxide measurement (moles/volume)Ordered By: Hector Mann on 69-19-7416XY4 [Moles/Vol]21.8 mmol/L 22.0-30.0[facility] Hospitalerum or plasma urea nitrogen measurement (mass/volume)Ordered By: Hector Mann on 61-34-0864Oepr nitrogen [Mass/Vol]31 mg/dL9-23Corey HospitalAutomated erythrocytes count in urine sediment (number/area)Ordered By: Angel Cook on 55-75-3569KHP Auto (Urine sed) [#/Area]20-49 [HPF]0-4FMansfield Hospital Automated leukocytes count in urine sediment (number/area)Ordered By: Angel Cook on 39-45-1301YSR Auto (Urine sed) [#/Area]1-2 [HPF]0-4FMansfield HospitalBilirubin Test strip Ql (U)Ordered By: Angel Cook on 03-13-2022 Bilirubin Ql (U)NegativeNegativeCorey HospitalBlood hemoglobin measurement (mass/volume)Ordered By: Angel Cook on 03-13-2022 Hemoglobin (Bld) [Mass/Vol]9.5 g/dL13.0-17.0[facility] Body fluid albumin measurement (mass/volume)Ordered By: Angel Cook on 35-77-1926Jfzigtw (Body fld) [Mass/Vol]2.1 g/dL3.2-5.5FMansfield HospitalCT biopsyOrdered By: Angel Cook on 03-90-0966Rfifshsdrla [Mass/Vol]140 mg/tC516-480KbefdtytwCorey HospitalColor Auto (U)Ordered By: Angel Cook on 79-29-2795Rtxjc (U)YellowYellowCorey Hospital Creatinine [Mass/volume] in UrineOrdered By: Angel Cook on 52-10-4871Skbrkewjmm (U) [Mass/Vol]54.4 mg/dLCorey HospitalComment on above:No reference range establishedCreatinine and Glomerular filtration rate.predicted panel (S/P/Bld)Ordered By: Angel Cook on 54-25-0161Vmipimkthz [Mass/Vol]3.06 mg/dL0.64-1.27Corey HospitalErythrocyte distribution width Auto (RBC) [Ratio]Ordered By: Angel Cook on 73-22-6416Qheyhzychpy distribution width (RBC) [Ratio]13.4 %12.0-14.8Corey HospitalEstimated glomerular filtration rate (GFR) non- AmericanOrdered By: Angel Cook on 38-04-5666PXF/1.73 sq M.predicted among non-blacks MDRD (S/P/Bld) [Vol rate/Area]23 mL/MinCorey HospitalFerritin [Mass/volume] in Serum or PlasmaOrdered By: Angel Cook on 57-40-1790Dfblfslm [Mass/Vol]118.8 ng/mL23.9-336.2FMansfield HospitalFolate [Mass/volume] in Serum or PlasmaOrdered By: Eusebio Olivares on 30-26-8562Engqcn [Mass/Vol]7.9 ng/mL>5.9 Corey HospitalComment on above:Folate reference range: >5.9 ng/ml The WHO technical consultation on folate and vitamin b12 deficiencies has determined that folate concentrations less than 4 ng/ml are considered deficient.Folate reference range: >5.9 ng/mlThe WHO technical consultation on folate and vitamin o21ejurbzbizdvm has determined that folate concentrations lessthan 4 ng/ml are considered deficient.Hematocrit Auto (Bld) [Volume fraction]Ordered By: Angel Cook on 85-72-3569Vulhcnestz (Bld) [Volume fraction]27.7 %38.8-50.0Corey HospitalImmunoglobulin light chains.kappa.free [Mass/volume] in SerumOrdered By: Angel Joyce on [id number] light chains.kappa.free (S) [Mass/Vol]124.5 mg/L 3.3-19.4FMansfield HospitalImmunoglobulin light chains.kappa.free/Immunoglobulin light chains.lambda.free [MassOrdered By: Angel Joyce on [id number] light chains.kappa.free/Immunoglobulin light chains.lambda.free (S) [Mass ratio]2.130.26-1.65Corey HospitalComment on above:Performed at: [employer] [id number] Advanced Clinical Specialist: Pablito Alexander PhD, Phone: [phone] at: [employer] [id number] Director: Pablito Alexander PhD, Phone: [phone] light chains.lambda.free [Mass/volume] in Serum or PlasmaOrdered By: Angel Joyce on 74-51-1568Jgvfjadvsewbhi light chains.lambda.free [Mass/Vol]58.4 mg/L5.7-26.3FMansfield Hospital Iron [Mass/volume] in Serum or PlasmaOrdered By: Angel Joyce on 81-66-1482Arhn [Mass/Vol]44 ug/sN66-635FijmiwvecCorey HospitalIron binding capacity [Mass/volume] in Serum or PlasmaOrdered By: Angel Joyce on 26-81-9056Sjye binding capacity [Mass/Vol]196 ug/xC572-205XxcgjfysyCorey HospitalIron saturation [Mass Fraction] in Serum or PlasmaOrdered By: Angel Joyce on 94-64-9074Cnix saturation [Mass fraction]22.0 %20-50Corey HospitalKetones Auto test strip (U) [Mass/Vol]Ordered By: Angel Joyce on 07-17-8303Tuiasyq (U) [Mass/Vol]NegativeNegativeCorey HospitalLaboratory - Chemistry and Chemistry - challengeOrdered By: Eusebio Olivares on 36-32-5028Eubrggepe (Vitamin B12) [Mass/Vol]580 pg/vH511-650DxrtqircgCorey HospitalLaboratory - Chemistry and Chemistry - challengeOrdered By: Angel Cook on 98-53-0098Gisewzeac [Mass/Vol]1.9 mg/dL1.6-2.6FMansfield HospitalLaboratory - UrinalysisOrdered By: Angel Cook on 07-31-7333Nmgdwzu casts LM Ql (Urine sed)0-8 [LPF]0-8[facility] Auto (RBC) [Entitic mass]Ordered By: Angel Cook on 75-27-9291DPP (RBC) [Entitic mass]29.8 pg27.5-35.2FPremier Health Upper Valley Medical CenterHC Auto (RBC) [Mass/Vol]Ordered By: Angel Cook on 58-17-6570QWTY (RBC) [Mass/Vol]34.2 g/dL32.5-35.6FPremier Health Upper Valley Medical CenterV Auto (RBC) [Entitic vol] Ordered By: Angel Cook on 06-70-5527YKR (RBC) [Entitic vol]87.3 fL83.5-101 Corey HospitalNitrite Test strip Ql (U)Ordered By: Angel Cook on 77-26-4008Wuzhhmt Ql (U)NegativeNegativeCorey HospitalNo Panel InformationOrdered By: Angel Cook on 43-22-755268103545-Wrcqulr Vitamin D Total< 7.0 ng/dQ10-027HshdmfzrhCorey HospitalComment on above:VITAMIN D STATUS 25(OH)VITAMIN D RANGE (ng/mL) Deficient <20 Insufficient 20 to <30 Sufficient 30 to 100 Reference: Chemo Campbell, Sergey SIMENTAL, et al. Evaluation,treatment, and prevention of vitamin D deficiency; an Endocrine Society clinical practice guideline. JCEM. 2010; 96(7):1911-30.VITAMIN D STATUS 25(OH)VITAMIN D RANGE (ng/mL) Deficient <20 Insufficient 20 to <87Unsrgitwdh42 to 100Reference: Chemo Campbell, Sergey SIMENTAL, et al. Evaluation,treatment, and prevention of vitamin D deficiency; an Endocrine Society clinical practice guideline. JCEM. 2010; 96(7):1911-30.Estimated GFR ()28 mL/MinCorey HospitalComment on above:GFR estimated reference range: According to KDOQI guidelines, <60 ml/min/1.73m2 is sufficient todiagnose a patient with chronic kidney disease.Pharmacy Creatinine Clearance (ChemN/[facility] CenterPhosphate [Mass/volume] in Serum or PlasmaOrdered By: Angel Cook on 71-81-3922Dgtgjxqbb [Mass/Vol]4.5 mg/dL2.5-4.6FMansfield HospitalPlatelet mean volume Auto (Bld) [Entitic vol]Ordered By: Angel Joyce on 49-05-4270Kyvqrasc mean volume (Bld) [Entitic vol]8.5 fL6.6-10.1FMansfield HospitalPlatelets Auto (Bld) [#/Vol]Ordered By: Angel Joyce on 70-79-6101Wrinzurbz (Bld) [#/Vol]232 10*3/uL 150-450Corey HospitalProtein Auto test strip (U) [Mass/Vol] Ordered By: Angel Cook on 25-80-4448Obcopwf (U) [Mass/Vol]300 mg/dLNegative Corey HospitalProtein [Mass/volume] in UrineOrdered By: Angel Joyce on 37-59-3001Hccgzyv (U) [Mass/Vol]408 mg/dL0-9Corey HospitalRBC Auto (Bld) [#/Vol]Ordered By: Angel Joyce on 70-66-2671ADL (Bld) [#/Vol]3.17 10*6/uL3.90-5.60[facility]uder [facility] Hospitalerum or plasma calcium measurement (mass/volume)Ordered By: Angel Joyce on 90-87-5082Ybtyefj [Mass/Vol]8.4 mg/dL8.2-10.2FMary Rutan Hospitalerum or plasma chloride measurement (moles/volume)Ordered By: Angel Cook on 73-31-7643Othzlpqo [Moles/Vol]105 mmol/A92-493HoptmfdqtMagruder Memorial Hospitalerum or plasma glucose measurement (mass/volume)Ordered By: Angel Cook on 18-20-4272Ehakyht [Mass/Vol]163 mg/iC55-081WpvoaluehCorey HospitalComment on above:ADA recommended reference range Random Glucose Reference Range is dependent on time and content of last meal. Glucose of more than 200 mg/dL in a nonstressed, ambulatory subject supports the diagnosis of Diabetes Mellitus.ADA recommended reference rangeRandom Glucose Reference Range is dependent on time and content of last meal. Glucose of more than 200 mg/dL in a nonstressed, ambulatory subject supports the diagnosisof Diabetes Mellitus.Serum or plasma intact parathyroid hormone measurement (mass/volume)Ordered By: Angel Cook on 20-79-4348Ntjtnruswd.intact [Mass/Vol] 164.8 pg/mQ06-35SxvxsszcfMagruder Memorial Hospitalerum or plasma methylmalonate measurement (moles/volume)Ordered By: Eusebio Olivares on 67-06-3474Ythuuiyjdtrcmn [Moles/Vol]2205 nmol/L0-378Corey HospitalComment on above: This test was developed and its performance characteristics determined by [employer] It has not been cleared or approved by the Food and Drug Administration. Performed at: [facility] [employer] [id number] Advanced Clinical Specialist: Saulo Araujo MD, Phone: [phone] test was developed and its performance characteristicsdetermined by [employer] It has not been cleared orapproved by the Food and Drug Administration.Performed at: [facility] [employer] [id number] Director: Saulo Araujo MD, Phone: [phone] or plasma potassium measurement (moles/volume)Ordered By: Angel Cook on 05-10-0466Hrmfugrfs [Moles/Vol]4.9 mmol/L3.5-5.1FMary Rutan Hospitalerum or plasma sodium measurement (moles/volume)Ordered By: Angel Cook on 25-76-2415Isbxlj [Moles/Vol]135 mmol/D008-936LqdcdilwfMagruder Memorial Hospitalerum or plasma total carbon dioxide measurement (moles/volume)Ordered By: Angel Cook on 07-44-1617IA1 [Moles/Vol]24.2 mmol/L 22.0-30.0Mag[facility]uder Memorial Hospitalerum or plasma urea nitrogen measurement (mass/volume)Ordered By: Angel Cook on 60-60-5764Kgwk nitrogen [Mass/Vol]37 mg/dL9-23Mag[facility]uder Memorial Hospitalerum or plasma uric acid measurement (mass/volume)Ordered By: Angel Cook on 89-59-1196Rtfll [Mass/Vol] 5.8 mg/dL2.6-7.2FMary Rutan Hospitalpecific gravity Auto test strip (U) [Rel density]Ordered By: Angel Cook on 03-29-8706Siwptwqe gravity (U) [Rel density]1.0121.001-1.030Mag[facility]uder Memorial Hospitalquamous epithelial cells detection in urine sediment by light microscopyOrdered By: Angel Cook on 17-15-0535Hzovvoycpd cells.squamous LM Ql (Urine sed)0-1 [HPF]0-2 Corey HospitalUrine bacteria detection by automated method Ordered By: Angel Cook on 58-66-4836Iqpvlnhn Auto Ql (U)None seenNone Seen Corey HospitalUrine clarity by refractometry automatedOrdered By: Angel Cook on 88-83-0492Hzvywpr Refractometry automated (U)ClearClear Corey HospitalUrine glucose measurement by automated test strip (mass/volume)Ordered By: Angel Cook on 43-75-1488Hzcotzr Auto test strip (U) [Mass/Vol]500 mg/dLNormalCorey HospitalUrine hemoglobin detection by automated test stripOrdered By: Angel Cook on 60-27-1729Rirphlizvd Auto test strip Ql (U)1+NegativeCorey HospitalUrine leukocyte esterase detection by automated test stripOrdered By: Angel Cook on 73-75-2912Srxtwruvw esterase Auto test strip Ql (U)NegativeNegativeCorey HospitalUrine protein/creatinine ratioOrdered By: Angel Cook on 96-02-0762Npyetxv/Creatinine (U) [Ratio]7500 mg/g{Cre}0-200Corey HospitalUrobilinogen Auto test strip (U) [Mass/Vol]Ordered By: Angel Cook on 44-01-8567Dpnmabwewvvx (U) [Mass/Vol]Normal mg/dLNormalCorey HospitalWBC Auto (Bld) [#/Vol]Ordered By: Angel Joyce on 43-35-3333LIQ (Bld) [#/Vol]7.6 10*3/uL4.1-10.5FMansfield HospitalpH Auto test strip (U)Ordered By: Angel Cook on 55-41-7080rN (U)6.0 [pH]5.0-9.0Corey HospitalBasophils Auto (Bld) [#/Vol]Ordered By: Eusebio Olivares on 24-81-5902Melriaqsu (Bld) [#/Vol]0.1 10*3/uL0.0-0.2FMansfield HospitalBasophils/100 WBC Auto (Bld)Ordered By: Eusebio Olivares on 03-09-2022 Basophils/100 WBC (Bld)1.4 %.Corey HospitalBlood hemoglobin measurement (mass/volume)Ordered By: Eusebio Olivares on 00-39-4647Ghpvzovfpx (Bld) [Mass/Vol]9.4 g/dL13.0-17.0Corey HospitalBlood leukocytes automated count (number/volume)Ordered By: Eusebio Olivares on 84-82-6275PES (Bld) [#/Vol]6.4 10*3/uL4.5-11.0Corey HospitalCreatinine and Glomerular filtration rate.predicted panel (S/P/Bld)Ordered By: Eusebio Olivares on 01-65-7814Smdqytmerr [Mass/Vol]2.87 mg/dL0.64-1.27Corey HospitalEosinophils Auto (Bld) [#/Vol]Ordered By: Eusebio Olivares on 03-09-2022 Eosinophils (Bld) [#/Vol]0.1 10*3/uL0.0-0.45[facility] Hospital Eosinophils/100 WBC Auto (Bld)Ordered By: Eusebio Olivares on 03-09-2022 Eosinophils/100 WBC (Bld)2.2 %.Corey HospitalErythrocyte distribution width Auto (RBC) [Ratio]Ordered By: Eusebio Olivares on 03-09-2022 Erythrocyte distribution width (RBC) [Ratio]13.5 %12.0-14.8Corey HospitalEstimated glomerular filtration rate (GFR) non- Ordered By: Eusebio Olivares on 69-07-5098ZOK/1.73 sq M.predicted among non-blacks MDRD (S/P/Bld) [Vol rate/Area]25 mL/MinCorey HospitalGlucose mean value [Mass/volume] in Blood Estimated from glycated hemoglobinOrdered By: Eusebio Olivares on 81-58-9323Otnvspw glucose Estimated from glycated hemoglobin (Bld) [Mass/Vol]189 mg/dLCorey HospitalHematocrit Auto (Bld) [Volume fraction]Ordered By: Eusebio Olivares on 67-63-7190Ueawixdqkw (Bld) [Volume fraction]27.1 %38.8-50.0Corey HospitalHemoglobin A1c percentageOrdered By: Eusebio Olivares on 73-85-0983EkR8z (Bld) [Mass fraction]8.2 %4.3-5.6FMansfield HospitalComment on above:Increased risk for diabetes: 5.7 - 6.4 diabetes: >6.4 glycemic control for adults with diabetes: <7.0Increased risk for diabetes: 5.7 - 6.4diabetes: >6.4glycemic control for adults with diabetes: <7.0Laboratory - Hematology and Cell countsOrdered By: Eusebio Olivares on 05-06-1050Uesmuzhsd RBC/100 WBC (Bld) [Ratio]0.0 %0-0.5FMansfield HospitalLymphocytes Auto (Bld) [#/Vol]Ordered By: Eusebio Olivares on 45-01-5856Gqwjrdabxhi (Bld) [#/Vol]1.3 10*3/uL1.00-4.8Corey HospitalLymphocytes/100 WBC Auto (Bld)Ordered By: Eusebio Olivares on 03-42-2457Zsdnicbvhyw/100 WBC (Bld)20.2 % .[facility] HospitalH Auto (RBC) [Entitic mass]Ordered By: Eusebio Olivares on 53-82-4347OPD (RBC) [Entitic mass]30.0 pg27.5-35.2FMansfield HospitalMCHC Auto (RBC) [Mass/Vol]Ordered By: Eusebio Olivares on 18-68-4951OKAS (RBC) [Mass/Vol]34.7 g/dL32.5-35.6FMansfield HospitalMCV Auto (RBC) [Entitic vol]Ordered By: Eusebio Olivares on 03-24-6745SOD (RBC) [Entitic vol]86.4 fL83.5-101Corey HospitalMonocytes Auto (Bld) [#/Vol]Ordered By: Eusebio Olivares on 05-88-9378Inaxndaop (Bld) [#/Vol] 0.3 10*3/uL0.0-0.8Corey HospitalMonocytes/100 WBC Auto (Bld) Ordered By: Eusebio Olivares on 81-07-1251Qaqgpqdgn/100 WBC (Bld)5.2 %.Corey HospitalNeutrophils Auto (Bld) [#/Vol]Ordered By: Eusebio Olivares on 40-00-6069Dgqnqgumnna (Bld) [#/Vol]4.6 10*3/uL1.8-7.7FMansfield HospitalNeutrophils/100 WBC Auto (Bld)Ordered By: Eusebio Olivares on 80-50-3504Uqvbhshrvvb/100 WBC (Bld)71.0 %.Corey HospitalNo Panel InformationOrdered By: Eusebio Olivares on 16-61-0743Gmnorkbyw GFR ()30 mL/MinCorey HospitalComment on above:GFR estimated reference range: According to KDOQI guidelines, <60 ml/min/1.73m2 is sufficient todiagnose a patient with chronic kidney disease.Pharmacy Creatinine Clearance (ChemN/AFMansfield HospitalPlatelet mean volume Auto (Bld) [Entitic vol]Ordered By: Eusebio Olivares on 21-44-2161Fobsiopk mean volume (Bld) [Entitic vol]8.5 fL6.6-10.1FMansfield HospitalPlatelets Auto (Bld) [#/Vol]Ordered By: Eusebio Olivares on 99-46-7811Eecqnpuma (Bld) [#/Vol]209 10*3/wC628-915ReybaoaeaCorey HospitalRBC Auto (Bld) [#/Vol]Ordered By: Eusebio Olivares on 23-05-6859UGS (Bld) [#/Vol]3.14 10*6/uL3.90-5.60Mag[facility] Hospitalerum or plasma calcium measurement (mass/volume)Ordered By: Eusebio Olivares on 20-54-4980Epvazzp [Mass/Vol]8.1 mg/dL8.2-10.2FMary Rutan Hospitalerum or plasma chloride measurement (moles/volume) Ordered By: Eusebio Olivares on 71-04-4123Yfwlgmbt [Moles/Vol]105 mmol/L95-114 [facility] Hospitalerum or plasma glucose measurement (mass/volume)Ordered By: Eusebio Olivares on 58-41-9418Ldpneqs [Mass/Vol]237 mg/dL 70-100Corey HospitalComment on above:ADA recommended reference range Random Glucose Reference Range is dependent on time and content of last meal. Glucose of more than 200 mg/dL in a nonstressed, ambulatory subject supports the diagnosis of Diabetes Mellitus.ADA recommended reference rangeRandom Glucose Reference Range is dependent on time and content of last meal. Glucose of more than 200 mg/dL in a nonstressed, ambulatory subject supports the diagnosisof Diabetes Mellitus.Serum or plasma potassium measurement (moles/volume)Ordered By: Eusebio Olivares on 06-90-8239Vhgwdhlam [Moles/Vol]4.2 mmol/L3.5-5.1FMary Rutan Hospitalerum or plasma sodium measurement (moles/volume)Ordered By: Eusebio Olivares on 24-77-7240Xwipsv [Moles/Vol]137 mmol/K078-769KnhfsbjmgMagruder Memorial Hospitalerum or plasma total carbon dioxide measurement (moles/volume)Ordered By: Eusebio Olivares on 67-87-0098FA1 [Moles/Vol]24.6 mmol/L 22.0-30.0Mag[facility] Hospitalerum or plasma urea nitrogen measurement (mass/volume)Ordered By: Eusebio Olivares on 55-91-2575Wxob nitrogen [Mass/Vol]39 mg/dL9-23Corey HospitalActivated partial thromboplastin time (aPTT) in platelet poor plasma by coagulation aOrdered By: Angel Cook on 29-37-3347zFFC Coag (PPP) [Time]39.1 s25.1-36.5FMansfield HospitalAlbumin [Mass/volume] in Serum or PlasmaOrdered By: Angel Cook on 57-13-2838Ygdleds [Mass/Vol]2.1 g/dL3.2-5.5FMansfield Hospital Albumin [Mass/Vol]2.3 g/dL2.9-4.4FMansfield Hospital Albumin/Protein.total in 24 hour Urine by ElectrophoresisOrdered By: Angel Cook on 76-71-6039Yzkablm Elph (24H U) [Mass fraction]64.4 %.Corey HospitalAutomated erythrocytes count in urine sediment (number/area) Ordered By: Angel Cook on 38-33-9737CLV Auto (Urine sed) [#/Area]20-49 [HPF]0-4 Corey HospitalAutomated leukocytes count in urine sediment (number/area)Ordered By: Angel Cook on 60-27-9794ZHU Auto (Urine sed) [#/Area] 3-4 [HPF]0-4FMansfield HospitalBilirubin Test strip Ql (U)Ordered By: Anegl Cook on 26-30-3913Pnpzeulgd Ql (U)NegativeNegativeCorey HospitalBlood hemoglobin measurement (mass/volume)Ordered By: Angel Cook on 75-45-5562Hyfxpoqvio (Bld) [Mass/Vol]10.6 g/dL13.0-17.0Corey HospitalCT biopsyOrdered By: Angel Cook on 37-65-1480Ayofrmlxmxz [Mass/Vol]138 mg/kT401-238VcxfzcpstCorey HospitalColor Auto (U)Ordered By: Angel Cook on 37-91-1244Krtdg (U)YellowYellowCorey HospitalCreatinine and Glomerular filtration rate.predicted panel (S/P/Bld)Ordered By: Angel Cook on 41-23-8139Cdpsdeujga [Mass/Vol]2.03 mg/dL0.64-1.27Corey HospitalErythrocyte distribution width Auto (RBC) [Ratio]Ordered By: Angel Cook on 60-95-2604Mdqhcfidzzv distribution width (RBC) [Ratio]12.9 % 12.0-14.8Corey HospitalEstimated glomerular filtration rate (GFR) non- AmericanOrdered By: Angel Cook on 89-84-5804KJW/1.73 sq M.predicted among non-blacks MDRD (S/P/Bld) [Vol rate/Area]37 mL/MinCorey HospitalFerritin [Mass/volume] in Serum or PlasmaOrdered By: Angel Cook on 38-19-1681Nrmxzsop [Mass/Vol]165.7 ng/mL23.9-336.2FMansfield HospitalFolate [Mass/volume] in Serum or PlasmaOrdered By: Angel Cook on 83-28-5933Ugnxif [Mass/Vol]11.1 ng/mL>5.9Corey HospitalComment on above:Folate reference range: >5.9 ng/ml The WHO technical consultation on folate and vitamin b12 deficiencies has determined that folate concentrations less than 4 ng/ml are considered deficient.Gamma globulin/Protein.total in 24 hour Urine by ElectrophoresisOrdered By: Angel Cook on 42-03-8433Fucox globulin Elph (24H U) [Mass fraction]10.4 %.Corey HospitalHematocrit Auto (Bld) [Volume fraction]Ordered By: Angel Cook on 03-31-5856Wcxtjlvshr (Bld) [Volume fraction]30.1 %38.8-50.0Corey HospitalHepatitis B virus surface Ag [Presence] in Serum or Plasma by ImmunoassayOrdered By: Angel Cook on 91-25-8031FMR surface Ag IA QlNegativeNegativeCorey HospitalComment on above:Performed at: [address] [id number] Advanced Clinical Specialist: Pablito Alexander PhD, Phone: [phone] [Mass/volume] in Serum or PlasmaOrdered By: Angel Cook on 05-92-6476YgF [Mass/Vol]373 mg/sZ56-710 Corey HospitalIgG [Mass/volume] in Serum or PlasmaOrdered By: Angel Joyce on 26-45-6497IiF [Mass/Vol]801 mg/hV482-6163OgxyyzyakCorey HospitalIgM [Mass/volume] in Serum or PlasmaOrdered By: Angel Joyce on 22-17-5981RgU [Mass/Vol]284 mg/wT00-102OyegfxjdsCorey HospitalComment on above:Performed at: [email or web address] [id number] Advanced Clinical Specialist: Pablito Alexander PhD, Phone: [phone] for Urine Ordered By: Angel Cook on 95-74-9828Yxqcvllmmkcnya Immunofixation (U) [Interp] Comment:.Corey HospitalComment on above:Presence of monoclonal protein is unclear at this time. Suggest repeat in 3 to 6 months if clinically indicated. Performed at: [email or web address] [id number] Advanced Clinical Specialist: Pablito Alexander PhD, Phone: [phone] light chains.kappa.free [Mass/volume] in SerumOrdered By: Angel Joyce on 12-25-2021 Immunoglobulin light chains.kappa.free (S) [Mass/Vol]93.9 mg/L3.3-19.4FMansfield HospitalImmunoglobulin light chains.kappa.free/Immunoglobulin light chains.lambda.free [MassOrdered By: Angel Joyce on 12-25-2021 Immunoglobulin light chains.kappa.free/Immunoglobulin light chains.lambda.free (S) [Mass ratio]1.780.26-1.65Corey HospitalComment on above: Performed at: [employer] [id number] Advanced Clinical Specialist: Pablito Alexander PhD, Phone: [phone] light chains.lambda.free [Mass/volume] in Serum or PlasmaOrdered By: Angel Georger on 68-15-9153Vdkuuvpcfefmzz light chains.lambda.free [Mass/Vol]52.7 mg/L5.7-26.3 Corey HospitalIron [Mass/volume] in Serum or PlasmaOrdered By: Angel Joyce on 37-72-3898Fags [Mass/Vol]44 ug/fE06-245LcchhhmiyCorey HospitalIron binding capacity [Mass/volume] in Serum or PlasmaOrdered By: Angel Joyce on 79-70-7819Plkw binding capacity [Mass/Vol]193 ug/gK433-873 Corey HospitalIron saturation [Mass Fraction] in Serum or PlasmaOrdered By: Angel Joyce on 52-70-7701Antl saturation [Mass fraction]22.0 % 20-50Corey HospitalKetcommunity hospital south Auto test strip (U) [Mass/Vol] Ordered By: Agnel Cook on 86-75-0321Wxoywuy (U) [Mass/Vol]NegativeNegative Corey HospitalLaboratory - Chemistry and Chemistry - challengeOrdered By: Angel Cook on 70-51-2808Ubjpmofjk (Vitamin B12) [Mass/Vol] 968 pg/uR767-590LheztmcdaCorey HospitalMagnesium [Mass/Vol]2.1 mg/dL 1.6-2.6FMansfield HospitalLaboratory - CoagulationOrdered By: Angel Cook on 70-38-5998NO Coag (PPP) [Time]11.6 s9.0-12.9Corey HospitalLaboratory - UrinalysisOrdered By: Angel Georger on 12-25-2021 Hyaline casts LM Ql (Urine sed)0-8 [LPF]0-8[facility] Auto (RBC) [Entitic mass]Ordered By: Angel Joyce on 08-89-6223HBZ (RBC) [Entitic mass]29.8 pg27.5-35.2FPremier Health Upper Valley Medical CenterHC Auto (RBC) [Mass/Vol]Ordered By: Angel Joyce on 72-78-0406NJMB (RBC) [Mass/Vol]35.1 g/dL 32.5-35.6FMansfield HospitalMCV Auto (RBC) [Entitic vol]Ordered By: Angel Cook on 99-27-8563VQU (RBC) [Entitic vol]84.8 fL83.5-101Corey HospitalNitrite Test strip Ql (U)Ordered By: Angel Cook on 82-95-9716Xdobyut Ql (U)NegativeNegativeCorey HospitalNo Panel InformationOrdered By: Angel Cook on 17-38-129086156290-Egwsuac Vitamin D Total < 7.0 ng/tS14-676MkklntwbuCorey HospitalComment on above:VITAMIN D STATUS 25(OH)VITAMIN D RANGE (ng/mL) Deficient <20 Insufficient 20 to <30 Sufficient 30 to 100 Reference: Vanna MF,Chemo NC, Sergey SIMENTAL, et al. Evaluation,treatment, and prevention of vitamin D deficiency; an Endocrine Society clinical practice guideline. JCEM. 2010; 96(7):1911-30.Estimated GFR ()45 mL/MinCorey HospitalComment on above:GFR estimated reference range: According to KDOQI guidelines, <60 ml/min/1.73m2 is sufficient todiagnose a patient with chronic kidney disease.Pharmacy Creatinine Clearance (ChemN/[facility] CenterProtein Electrophoresis M-SpikeNot observed g/dLNot ObservedCorey HospitalProtein Electrophoresis NoteSee comment.Corey HospitalComment on above:Protein electrophoresis scan will follow via computer, mail, or transportation planning technician delivery. Performed at: - [facility] [id number] Advanced Clinical Specialist: Pablito Alexander PhD, Phone: [phone] Immun[employer]ation Comment:.Corey HospitalComment on above:Presence of monoclonal protein is unclear at this time. Suggest repeat in 3 to 6 months if clinically indicated.Urine Random Prot Electrophor NoteSee comment.Corey HospitalComment on above:Protein electrophoresis scan will follow via computer, mail, or transportation planning technician delivery.Phosphate [Mass/volume] in Serum or PlasmaOrdered By: Angel Cook on 17-78-7915Qxfaoujgd [Mass/Vol]4.6 mg/dL2.5-4.6FMansfield HospitalPlatelet mean volume Auto (Bld) [Entitic vol]Ordered By: Angel Cook on 35-51-3024Zcrrljdj mean volume (Bld) [Entitic vol]8.9 fL6.6-10.1 Corey HospitalPlatelet poor plasma international normalized ratio (INR) by coagulation assay (relatOrdered By: Angel Cook on 21-78-2433FVT Coag (PPP) [Relative time]1.0 {INR}Corey HospitalComment on above:INR Therapeutic Range A) Pre- and Peroperative OAT started two weeks before surgery. NOT HIP SURGERY: 1.5 - 2.5 HIP SURGERY: 2 - 3 B) Primary and secondary prevention of venous THROMBOSIS: 2 - 3 C) Active venous thrombosis, pulmonary embolism and prevention of recurrent venous thrombosis: 2 - 3 D) Prevention of arterial thromboembolism including patients with mechanical heart valves: 3 - 4.5Platelets Auto (Bld) [#/Vol]Ordered By: Angel Cook on 40-23-6810Pvlsrnsrx (Bld) [#/Vol]280 10*3/uL 150-450Corey HospitalProtein Auto test strip (U) [Mass/Vol] Ordered By: Angel Cook on 70-59-0944Glgwyqh (U) [Mass/Vol]mg/dLNegative Corey HospitalProtein [Mass/volume] in Serum or PlasmaOrdered By: Angel Cook on 45-73-1722Jyzbrtd [Mass/Vol]5.5 g/dL6.0-8.5FMansfield HospitalProtein [Mass/volume] in UrineOrdered By: Angel Cook on 77-99-5169Nmhgnfv (U) [Mass/Vol]710.3 mg/dLNot Estab.Corey HospitalComment on above:Results confirmed on dilution.Protein.monoclonal/Protein.total in 24 hour Urine by Electrophoresis Ordered By: Angel Cook on 90-43-8964Iemdyju.monoclonal Elph (24H U) [Mass fraction]Comment: %Not ObservedCorey HospitalComment on above:ASYMMETRICAL GAMMARBC Auto (Bld) [#/Vol]Ordered By: Angel Cook on 21-72-6837FFK (Bld) [#/Vol]3.55 10*6/uL3.90-5.60[facility] Hospitalerum globulin measurement (mass/volume)Ordered By: Angel Cook on 78-73-3168Ywovnuhi (S) [Mass/Vol]3.2 g/dL2.2-3.9Mag[facility]uder Memorial Hospitalerum or plasma albumin/globulin mass ratioOrdered By: Angel Cook on 10-65-5341Iyvdrmw/Globulin [Mass ratio]0.7 {ratio}0.7-1.7FMary Rutan Hospitalerum or plasma alpha 1 globulin measurement by electrophoresis (mass/volume)Ordered By: Angel Cook on 05-94-8531Rqiqd 1 globulin Elph [Mass/Vol]0.2 g/dL0.0-0.4FMary Rutan Hospitalerum or plasma alpha 2 globulin measurement by electrophoresis (mass/volume)Ordered By: Angel Cook on 80-00-3136Nvvtf 2 globulin Elph [Mass/Vol]1.2 g/dL0.4-1.0Mag[facility] Hospitalerum or plasma beta globulin measurement by electrophoresis (mass/volume)Ordered By: Angel Cook on 01-24-2980Njqt globulin Elph [Mass/Vol] 0.9 g/dL0.7-1.3FMary Rutan Hospitalerum or plasma calcium measurement (mass/volume)Ordered By: Angel Cook on 98-02-3497Cthwzlh [Mass/Vol] 8.3 mg/dL8.2-10.2FMary Rutan Hospitalerum or plasma chloride measurement (moles/volume)Ordered By: Angel Cortezdir on 04-78-5783Afkurlrv [Moles/Vol]97 mmol/J73-924JdepbnuokMagruder Memorial Hospitalerum or plasma gamma globulin measurement by electrophoresis (mass/volume)Ordered By: Angel Cortezdir on 40-48-6024Dhvkb globulin Elph [Mass/Vol]0.9 g/dL0.4-1.8[facility] Hospitalerum or plasma glucose measurement (mass/volume)Ordered By: Angel Cook on 91-72-5338Xhnmxeu [Mass/Vol]392 mg/pP14-552YfcubttciCorey HospitalComment on above:ADA recommended reference range Random Glucose Reference Range is dependent on time and content of last meal. Glucose of more than 200 mg/dL in a nonstressed, ambulatory subject supports the diagnosis of Diabetes Mellitus.Serum or plasma intact parathyroid hormone measurement (mass/volume)Ordered By: Angel Cook on 94-15-1316Trsuijgeav.intact [Mass/Vol]147.3 pg/nA37-80YkvjjaldsMagruder Memorial Hospitalerum or plasma potassium measurement (moles/volume)Ordered By: Angel Cook on 12-25-2021 Potassium [Moles/Vol]4.2 mmol/L3.5-5.1FMary Rutan Hospitalerum or plasma sodium measurement (moles/volume)Ordered By: Angel Cook on 12-25-2021 Sodium [Moles/Vol]130 mmol/F587-521GipggrfhaMagruder Memorial Hospitalerum or plasma total carbon dioxide measurement (moles/volume)Ordered By: Angel Cook on 91-70-1724MU5 [Moles/Vol]24.4 mmol/L22.0-30.0[facility] Serum or plasma urea nitrogen measurement (mass/volume)Ordered By: Angel Cook on 61-55-5295Izzo nitrogen [Mass/Vol]35 mg/dL9-23[facility] Hospitalpecific gravity Auto test strip (U) [Rel density]Ordered By: Angel Cook on 43-90-5885Xjeyauzn gravity (U) [Rel density]1.0261.001-1.030[facility] Hospitalquamous epithelial cells detection in urine sediment by light microscopyOrdered By: Angel Cook on 69-50-5575Xnjnjhrddz cells.squamous LM Ql (Urine sed)1-2 [HPF]0-2FMansfield HospitalUrine alpha 1 globulin/total protein by electrophoresisOrdered By: Angel Cook on 12-25-2021 Alpha 1 globulin Elph (U) [Mass fraction]7.4 %.[facility] Urine alpha 2 globulin/total protein ratio by electrophoresisOrdered By: Angel Cook on 90-53-1716Ddozc 2 globulin Elph (U) [Mass fraction]6.8 %.[facility] HospitalUrine bacteria detection by automated methodOrdered By: Angel Cook on 98-63-9301Qjcgcuym Auto Ql (U)None seenNone SeenCorey HospitalUrine beta globulin measurement by electrophoresis (mass/volume)Ordered By: Angel Cook on 81-38-9759Wfyf globulin Elph (U) [Mass/Vol]11.0 %.[facility] HospitalUrine clarity by refractometry automatedOrdered By: Angel Cook on 95-56-7206Jmvzqtw Refractometry automated (U)ClearCleAdena Pike Medical CenterUrine glucose measurement by automated test strip (mass/volume)Ordered By: Angel Cook on 85-75-9534Bjhylqy Auto test strip (U) [Mass/Vol]>=1000 mg/dLNoMagruder Memorial HospitalUrine hemoglobin detection by automated test stripOrdered By: Angel Cook on 72-32-5271Upjbhmhgee Auto test strip Ql (U)1+NegativeCorey HospitalUrine leukocyte esterase detection by automated test stripOrdered By: Angel Cook on 09-60-9048Lbjvaaeoj esterase Auto test strip Ql (U)Negative NegativeCorey HospitalUrobilinogen Auto test strip (U) [Mass/Vol]Ordered By: Angel Cook on 39-53-9600Raeiwufgnelh (U) [Mass/Vol]Normal mg/dLNoMagruder Memorial HospitalWBC Auto (Bld) [#/Vol]Ordered By: Angel Cook on 18-85-5913WAU (Bld) [#/Vol]8.1 10*3/uL4.1-10.5FMansfield HospitalpH Auto test strip (U)Ordered By: Angel Cook on 75-40-0942pF (U) 5.5 [pH]5.0-9.0Core[facility] HospitalTobacco Screening.on 11-24-2021 Adult depression screening assessmentMercy Hospital 250 DO Work Phone: Tobacco use status CPHSa) [facility] 250 [facility] Work Phone: Tobacco Screening.YesMP-[facility] 250 DO Work Phone: ANA EIA W/REFLEX 5 BIOMARKERSon 44-37-7926ROE Direct PositiveAbnormalNegativeOhiohealth Dublin Methodist HospitalComment on above:Performed By: #### ANARF #### [facility] [address] [place] [address] Dr. Sonam Vargas-DNA (DS) Ab Qn1 IU/mLNormal0-9The [facility] HospitalComment on above:Result Comment: Negative <5 Equivocal 5 - 9 Positive >9Performed By: #### ANARF #### [facility] [address] [place] [address] Dr. Sonam Devi Antibodies1.4 AICritically high0.0-0.9[facility] Comment on above:Performed By: #### ANARF #### [facility] [address] [place] [address] Dr. Sonam Castorena BELOW:CommentNormalThe [facility] HospitalComment on above: Result Comment: Autoantibody Disease Association Condition Frequency --------- Antinuclear Antibody, SLE, mixed connective Direct (MARYAM-D) tissue diseases --------- dsDNA SLE 40 - 60% --------- Chromatin Drug induced SLE 90% SLE 48 - 97% --------- SSA (Ro) SLE 25 - 35% Sjogren's Syndrome 40 - 70% Lupus 100% --------- SSB (La) SLE 10% Sjogren's Syndrome 30% --------- Sm (anti-Salvador) SLE 15 - 30% --------- ACETYLENE CUTTER Mixed Connective Tissue Disease 95% (U1 nRNP, SLE 30 - 50% anti-ribonucleoprotein) Polymyositis and/or Dermatomyositis 20% --------- Scl-70 (antiDNA Scleroderma (diffuse) 20 - 35% topoisomerase) Crest 13% --------- Cony-1 Polymyositis and/or Dermatomyositis 20 - 40% --------- Centromere B Scleroderma - Crest variant 80%Performed By: #### ANARF #### [facility] [address] [place] [address] Dr. Sonam Arguello Anti-SS-A<0.6Alceyc7.0-0.9The Green Cross Hospitalment on above:Performed By: #### ANARF #### [facility] [address] [place] [address] Dr. Sonam Arguello Anti-SS-B<0.5Sszkhj2.0-0.9The [facility] HospitalCommunson healthcare manistee hospital on above:Performed By: #### ANARF #### [facility] [address] [place] [address] Dr. Sonam Holder Antibodies<0.2Ijsyyk2.0-0.9The [facility] HospitalComment on above:Performed By: #### ANARF #### [facility] [address] [place] [address] Dr. Sonam GodinezALBUMINon 84-94-0765Mgfjzif [Mass/Vol]1.8 g/dLCritically low 3.5-5.0The [facility] on above:Performed By: #### ALB, LIPID, DLDL, BMP #### [facility] [address] [place] [address] Dr. Sonam GodinezDIRECT LDLon 84-47-6319Xtwzuxfeiqg in LDL [Mass/Vol]164 mg/dL NormalThe [facility] HospitalCommunson healthcare manistee hospital on above:Performed By: #### ALB, LIPID, DLDL, BMP #### [facility] [address] [place] [address] Dr. Sonam GodinezDLSHAILA NORMALSEE Pike Community HospitalCommunson healthcare manist[facility] hospital on above: Result Comment: <100 mg/dl OPTIMAL 100 - 129 mg/dl NEAR OR ABOVE OPTIMAL 130 - 159 mg/dl BORDERLINE HIGH 160 - 189 mg/dl HIGH >190 mg/dl VERY HIGHPerformed By: #### ALB, LIPID, DLDL, BMP #### [facility] [address] [address] [address] Sonam GodinezGLYCOHEMOGLOBIN A1Con 85-16-6509DAD RECOMMENDATIONADA THERAPEUTIC TARGET 6.0 - 7.0 ACTION SUGGESTED > 7.0[facility] CompanyCommunson healthcare manistee hospital on above:Performed By: #### A1C #### [facility] [address] [place] [address] Dr. Sonam GodinezGlucose [Mass/Vol]157 mg/dLNoPeoples HospitalComment on above:Performed By: #### A1C #### [facility] [address] [place] [address] Dr. Sonam GodinezHbA1c (Bld) [Mass fraction]7.1 %Critically high<=6.0The [facility] HospitalComment on above:Performed By: #### A1C #### [facility] [address] [place] [address] Dr. Sonam GodinezLIPID PROFILEon 34-95-5977LMJA-HDL RATIO NORMSEE BELOWRegency Hospital CompanyComment on above:Result Comment: 3.3 - 4.4 LOW RISK 4.4 - 7.1 AVERAGE RISK 7.1 - 11.0 MODERATE RISK >11.0 HIGH RISKPerformed By: #### ALB, LIPID, DLDL, BMP #### [facility] [address] [place] [address] Dr. Sonam GodinezCholesterol [Mass/Vol]312 mg/dLCritically high<=200The [facility] HospitalComment on above:Performed By: #### ALB, LIPID, DLDL, BMP #### [facility] [address] [place] [address] Dr. Sonam GodinezCholesterol in HDL [Mass/Vol]40 mg/dLRegency Hospital Company Comment on above:Performed By: #### ALB, LIPID, DLDL, BMP #### [facility] [address] [place] [address] Dr. Sonam Smithesterol.total/Cholesterol in HDL [Mass ratio]7.8 {ratio} NormalThe [facility] HospitalComment on above:Performed By: #### ALB, LIPID, DLDL, BMP #### [facility] [address] [address] [address] Sonam Loredo NORMAL> or = 60 mg/dl - LOW CARDIOVASCULAR RISK <40 mg/dl - HIGH CARDIOVASCULAR RISKRegency Hospital CompanyComment on above:Performed By: #### ALB, LIPID, DLDL, BMP #### [facility] [address] [address] [address] Sonam GodinezLDL CALC NORMALSEE BELOWRegency Hospital CompanyComment on above:Result Comment: <100 mg/dl OPTIMAL 100 - 129 mg/dl NEAR OR ABOVE OPTIMAL 130 - 159 mg/dl BORDERLINE HIGH 160 - 189 mg/dl HIGH >190 mg/dl VERY HIGH Performed By: #### ALB, LIPID, DLDL, BMP #### [facility] [address] [place] [address] Dr. Sonam GodinezTriglyceride [Mass/Vol]494 mg/dLCritically high<=150The [facility] HospitalComment on above:Performed By: #### ALB, LIPID, DLDL, BMP #### [facility] [address] [place] [address] Dr. Sonam GodinezPROF CHEM 8 (BAS METB)on 54-14-8778Cuwdl gap [Moles/Vol]8.8 mmol/LNormalThe [facility] HospitalComment on above:Performed By: #### ALB, LIPID, DLDL, BMP #### [facility] [address] [address] [address] Soanm GodinezCalcium [Mass/Vol]7.8 mg/dLCritically low8.4-10.2The [facility] HospitalComment on above:Performed By: #### ALB, LIPID, DLDL, BMP #### [facility] [address] [address] [address] Sonam GodinezChloride [Moles/Vol]101 mmol/IDmdbdu90-471Cgs [facility] Comment on above:Performed By: #### ALB, LIPID, DLDL, BMP #### [facility] [address] [address] [address] Sonam GodinezCO2 [Moles/Vol]27.1 mmol/PVotjcb35.0-30.0The [facility] Comment on above:Performed By: #### ALB, LIPID, DLDL, BMP #### [facility] [address] [place] [address] Dr. Sonam GodinezCreatinine [Mass/Vol]1.66 mg/dLCritically high0.66-1.25The [facility] HospitalComment on above:Performed By: #### ALB, LIPID, DLDL, BMP #### [facility] [address] [place] [address] Dr. Masters ChangEGFR-AF XDRZDGVZ24 mL/min/1.54g3Izmjsplbcy low>=60The [facility] HospitalComment on above:Performed By: #### ALB, LIPID, DLDL, BMP #### [facility] [address] [place] [address] Dr. Sonam ValladaresGFR-NON AF YFNXGBHA71 mL/min/1.76k1Fdmzfylasv low>=60The [facility] HospitalComment on above:Performed By: #### ALB, LIPID, DLDL, BMP #### [facility] [address] [place] [address] Dr. Sonam GodinezGlucose [Mass/Vol]240 mg/dLCritically hrvh00-381Rlk [facility] HospitalComment on above:Performed By: #### ALB, LIPID, DLDL, BMP #### [facility] [address] [place] [address] Dr. Sonam GodinezPotassium [Moles/Vol]3.9 mmol/LNormal3.4-5.0The [facility] Comment on above:Performed By: #### ALB, LIPID, DLDL, BMP #### [facility] [address] [place] [address] Dr. Sonam GodinezSodium [Moles/Vol]133 mmol/LCritically blr880-325Xim Green Cross Hospitalment on above:Performed By: #### ALB, LIPID, DLDL, BMP #### [facility] [address] [place] [address] Dr. Sonam GodinezUrea nitrogen [Mass/Vol]37.0 mg/dLCritically high9.0-20.0The [facility] HospitalComment on above:Performed By: #### ALB, LIPID, DLDL, BMP #### [facility] [address] [place] [address] Dr. Sonam GodinezUrea nitrogen/Creatinine [Mass ratio]22.3 mg/mgNoPeoples HospitalComment on above:Performed By: #### ALB, LIPID, DLDL, BMP #### [facility] [address] [place] [address] Dr. Sonam Pro T PROTEIN CREAT RATIOon 47-48-0066IG TOTAL PROTEIN>200.0 Critically high<=12.0The [facility] HospitalComment on above:Performed By: #### URTPCR #### [facility] [address] [place] [address] Dr. Sonam Pro CREAT52.73 mg/qZFfrmtz92.00-300.00[facility] Comment on above:Performed By: #### URTPCR #### [facility] [address] [place] [address] Dr. Sonam GodinezUS KIDNEYS BLADDERon 15-46-9185OO KIDNEYS BLADDEREXAMINATION: US KIDNEYS BLADDER HISTORY: Renal disorder associated with type [...] Electronically authenticated by: JEREL MEJIA Date: 2021-10-23 11:27NoPeoples HospitalED NOTEon [id number] NOTEHNO ID: [id number] Author: Gerald [place] MD Service: Emergency Medicine Author Type: Resident Type: ED Notes Filed: 10/01/2021 6:37 PM Note Text: CM for AM 23M sent from [facility] for ophtho c/s for elevated L IOP [...] other two should be TID [facility] ophtho f/u at 1230 ([facility], [facility]) Others' Documentation Sun Oct 01, [...] provided. Gerald [place] MD Emergency Medicine Resident 10/01/21No[facility] NOTEon 24-90-5661OM PROV NOTEHNO ID: [id number] Author: Anum Tristan MD Service: Ophthalmology Author Type: Resident Type: ED Provider Notes Filed: 10/01/2021 9:02 AM Note Text: Attestation signed by Ben Cherry MD at [...] Cherry MD October 02, 2021 7:56 AM OPHTHALMOLOGY CONSULTATION REPORT Yoel Michelle Tamayo [id number] October 01, 2021 7:14 AM REASON FOR [...] not flat on back - F/u in [place] with Dr. Zita Gilmore tomorrow at 12:30 - ophthalmology will arrange appointment 2. Proliferative diabetic retinopathy, both eyes - Managed by Dr. Gonzales in [place]; next f/u appointment Saturday, 09/05 per patient Case discussed with glaucoma fellow Dr. Cherry and retina staff Dr. Aguilar. HPI This is a 36 year old male who is transferred to [facility] for elevated IOP, left eye, [...] [facility] (pt saw him in [place], [place]). The patient was doing well at his POD1 visit but has not followed up since due to being dx with COVALEJANDRA around the time of surgery. His next [...] which prompted his visit to [facility] ED, where he was found to have IOP in the mid-50s. The [facility] ED was unable to get in contact with the patient's retina practice, so I was called for medical advice. I recommended 3 rounds of brimonidine/timolol/dorzolamide and, if possible, 1g or 500mg of Diamox (depending on kidney function; recommended BMP prior to administration). After these interventions, the patient's IOP, left eye, remained in the high 40s, so the decision was made to transfer the patient to [facility] Main ED for further assessment and management. CT at [facility] was remarkable only for vitreous opacities, c/w [...] sc 20/100 +2 Tonometr (more content not included)...NormalPeoples Hospital NOTEHNO ID: [id number] Author: Govind Us MD Service: Emergency Medicine Author Type: Physician Type: ED Provider Notes Filed: 10/01/2021 7:17 AM Note Text: ED Provider Note Patient Name: Yoel Tamayo SERVICE DATE: 10/01/21 History Patient presents with: [...] is from [place]; recently moved back to [place] in [facility]. About a month ago had outpatient ophthalmology evaluation and was found to have left retinal detachment. He had surgery for left eye retinal detachment on 09/17/2021. States yesterday he developed severe left eye pain. he tried using his eye drops at home for elevated pressures w/out improvement. Went to [facility] ED- found to have elevated IOP. Patient reports left eye pressures were elevated near 50. He received PO meds and ophthalmologic drops, and was sent to [facility] main [place] for optho consult. He reports minimal vision [...] SpO2 Weight Height 10/01/21 0534 10/01/21 0530 10/01/2134 10/01/2134 10/01/2134 10/01/21529 -- -- 180/87 [...] 36 yo male presenting [place] transfer [facility] optho consult. He presents afebrile, hemodynamically [...] of the patient an (more content not included)...NormalSelect [facility]ty [facility] Vital Signs Date TimeVital SignValuePerforming ZpdvmluunPxoosbju69-32-2306 08:14-0500Body osbeqk625.4 cmTiana Salvador APRN-[employer]ICY SPECIALIST Work Phone: [facility]11-11-2025 08:14-0500 Body mass index (BMI) [Ratio]24.54 kg/x1XsnlnTiana Salvador GUT SNATCHER-[employer]ICY SPECIALIST Work Phone: [facility]11-11-2025 08:14-0500 Body dsnpwe16.37 kgTiana Salvador APRN-[employer] POLICY SPECIALIST Work Phone: [facility]11-11-2025 08:14-0500 Diastolic blood xyommflr99 mm[Hg]Tiana Salvador GUT SNATCHER-[employer]DI[employer]ICY SPECIALIST Work Phone: [facility]11-11-2025 08:14-0500 Heart rate60 /minDyudith Salvador GUT SNATCHER-[employer]DI[employer] POLICY SPECIALIST Work Phone: [facility]11-11-2025 08:14-0500 Systolic blood detiatkt506 mm[Hg]Tiana Salvador GUT SNATCHER-[employer]DI[employer] POLICY SPECIALIST Work Phone: [facility]10-15-2025 09:11-0400 Body iqxxan650.4 cmVarsha Mcdonnell MD Work Phone: [phone]10-15-2025 09:11-0400 Body mass index (BMI) [Ratio]24.2 kg/c6TpwmcakheVarsha Mcdonnell MD Work Phone: 1(084)[address] [place], [place] 5544710-15-2025 09:11-0400 Body mroaxu77.19 kgVarsha Mcdonnell MD Work Phone: 1(774)[address] [place], [place] 5544710-15-2025 09:11-0400 Diastolic blood ztsexfcy42 mm[Hg]Varsha Mcdonnell MD Work Phone: [phone])[address] [place], [place] [address]Commun[facility] on above:Left arm fdsatbk56-39-1905 09:11-0400Heart rate67 /minVarsha Mcdonnell MD Work Phone: 1(106)[address] [place], [place] 5544710-15-2025 09:11-0400 SaO2% (BldA) [Mass fraction]99 %Varsha Mcdonnell MD Work Phone: [phone])[address] [place], [place] 5544710-15-2025 09:11-0400 Systolic blood cwgaahku043 mm[Hg]Varsha Mcdonnell MD Work Phone: 1(485)[address] [place], [place] [address] on above:Left arm xwaxrox17-64-6765 12:00-0400Body fdylarsduwu76.3 [degF]Eusebio Ball DO Work Phone: [facility]10-14-2025 12:00-0400 Diastolic blood ypyokkvl17 mm[Hg]Eusebio Ball DO Work Phone: [facility]10-14-2025 12:00-0400 Heart rate71 /minBenjamin Ball DO Work Phone: [facility]10-14-2025 12:00-0400 Respiratory rate18 /minBenjamin Ball DO Work Phone: [phone])[address]10-14-2025 12:00-0400 SaO2% (BldA) [Mass fraction]97 %Eusebio Ball DO Work Phone: 1419)[facility] [place], [place] [address]110-14-2025 12:00-0400 Systolic blood inupdxcw826 mm[Hg]Uesebio Ball DO Work Phone: [phone])[address] [place], [place] 0602910-14-2025 06:00-0400 Body kkaxyy88.3 kgBenjamin Ball DO Work Phone: [phone])[address] [place], [place] 0602910-13-2025 22:38-0400 Body bxkyem792.42 cmBenjamin Ball DO Work Phone: [phone])[address] [place], [place] 0602910-13-2025 21:56-0400 Diastolic blood mm[Hg]Eusebio Ball DO Work Phone: [phone])[address] [place], [place] 0602910-13-2025 21:56-0400 Heart rate69 /minBenjamin Ball DO Work Phone: 1(647)[address] [place], [place] 0602910-13-2025 21:56-0400 Respiratory rate16 /minBenjamin Ball DO Work Phone: 1(778)[address] [place], [place] 0602910-13-2025 21:56-0400 SaO2% (BldA) [Mass fraction]98 %Eusebio Ball DO Work Phone: 1(908)[address] [place], [place] 0602910-13-2025 21:56-0400 Systolic blood mm[Hg]Eusebio Ball DO Work Phone: 1(140)[address] [place], [place] 060[address]10-13-2025 17:23-0400 Body fjohwd203.42 cmBenjamin Ball DO Work Phone: [phone])[address] [place], [place] 060[address]10-13-2025 17:23-0400 Body xxboqvdeuvr46.9 [degF]Eusebio Ball DO Work Phone: 1419)[address] [place], [place] 060[address]10-13-2025 17:23-0400 Body aoyyqa78.6 kgBenjamin Ball DO Work Phone: 1(871)[address] [place], [place] 0602910-12-2025 00:09-0400 Diastolic blood sqjphnob164 mm[Hg]Eusebio Ball DO Work Phone: 1(069)[address] [place], [place] 060[address]10-12-2025 00:09-0400 Heart rate73 /minBenjamin Ball DO Work Phone: 1419)[address] [place], [place] 0602910-12-2025 00:09-0400 Respiratory rate18 /minBenjamin Ball DO Work Phone: [phone])[address] [place], [place] 0602910-12-2025 00:09-0400 SaO2% (BldA) [Mass fraction]98 %Eusebio Ball DO Work Phone: 1(597)[address] [place], [place] 0602910-12-2025 00:09-0400 Systolic blood mm[Hg]Eusebio Ball DO Work Phone: 1(956)[address] [place], [place] 0602910-11-2025 19:59-0400 Body .42 cmBenjamin Ball DO Work Phone: 1(490)[address] [place], [place] 0602910-11-2025 19:59-0400 Body zlyeounqdkf73.3 [degF]Eusebio Ball DO Work Phone: 1(528)[address] [place], [place] 060[address]10-11-2025 19:59-0400 Body elwgsr43 kgBenjamin Ball DO Work Phone: 1(951)[address] [place], [place] 060[address]10-09-2025 11:36-0400 Diastolic blood hjujkpse26 mm[Hg]Brianna Gomez DO Work Phone: [facility]10-09-2025 11:36-0400 Systolic blood mm[Hg]Brianna Gomez DO Work Phone: [facility]10-09-2025 11:06-0400 Body vjjkwy556.4 cmBrianna Jason DO Work Phone: [facility]10-09-2025 11:06-0400 Body mass index (BMI) [Ratio]23.22 kg/y7QpfkkynBrianna Gomez DO Work Phone: [facility]10-09-2025 11:06-0400 Body ebdcfe01.83 kgWilliam Jason DO Work Phone: [facility]10-09-2025 11:06-0400 Heart rate72 /minWilliam Jason DO Work Phone: [facility]09-18-2025 06:46-0400 Diastolic blood vymboprv97 mm[Hg]Eusebio Ball DO Work Phone: 1(731)[address]09-18-2025 06:46-0400 Heart rate63 /minBenjamin Ball DO Work Phone: 1(031)[address]09-18-2025 06:46-0400 Respiratory rate18 /minBenjamin Ball DO Work Phone: 1(405)[address] [place], [place] 060[address]09-18-2025 06:46-0400 SaO2% (BldA) [Mass fraction]95 %Eusebio Ball DO Work Phone: 1(731)966-[address] [place], [place] 64[address]109-18-2025 06:46-0400 Systolic blood mm[Hg]Eusebio Ball DO Work Phone: 1(288)[address]09-17-2025 22:31-0400 Body qatxun166.42 cmBenjamin Ball DO Work Phone: 1(008)[address] [place], [place] 0602909-17-2025 22:31-0400 Body atyrbhuktrl27.9 [degF]Eusebio Ball DO Work Phone: 1(329)902-[address] [place], [place] 64[address]109-17-2025 22:31-0400 Body qsyrnz78 kgBenjamin Ball DO Work Phone: 1(522)[address] [place], [place] 0602909-04-2025 10:41-0400 Body jtjvgu490.42 cmBenjamin Ball DO Work Phone: 1(638)839-[address] [place], [place] 64[address]109-04-2025 10:41-0400 Body mass index (BMI) [Ratio]23.3 kg/l6Pntiegqq Ball DO Work Phone: [facility]09-04-2025 10:41-0400 Body bpemfu92.28 kgBenjamin Ball DO Work Phone: [facility]09-04-2025 10:41-0400 Diastolic blood pycxtyyu77 mm[Hg]Eusebio Ball DO Work Phone: [facility]09-04-2025 10:41-0400 Heart rate79 /minBenjamin Ball DO Work Phone: [phone]09-04-2025 10:41-0400 Respiratory rate12 /minBenjamin Ball DO Work Phone: 1([phone]09-04-2025 10:41-0400 Systolic blood zcvqemwm397 mm[Hg]Eusebio Ball DO Work Phone: [phone]08-28-2025 07:50-0400 Body nbtbwi954.[address] [place], [place] 5144308-28-2025 07:50-0400 Body mass index (BMI) [Ratio]23.06 kg/m2Ely [address] [place] [address] 04-15-2025 07:50-0400Body cuugli04.[address] [place] [address] 04-15-2025 07:50-0400Diastolic blood qtddamvt28 mm[Hg][address]08-28-2025 07:50-0400Systolic blood yqdghwwl816 mm[Hg][address]08-26-2025 14:20-0400Diastolic blood gewzlmxk09 mm[Hg]Eusebio Ball DO Work Phone: [facility]08-26-2025 14:20-0400 Heart rate66 /minBenjamin Ball DO Work Phone: [facility]08-26-2025 14:20-0400 Respiratory rate16 /minBenjamin Ball DO Work Phone: [facility]08-26-2025 14:20-0400 SaO2% (BldA) [Mass fraction]95 %Eusebio Ball DO Work Phone: 1(419)[address] [place], [place] 0602908-26-2025 14:20-0400 Systolic blood dipoaaab033 mm[Hg]Eusebio Ball DO Work Phone: 1(419)[address] [place] 0602908-26-2025 12:13-0400 Body stkkut561.42 cmBenjamin Ball DO Work Phone: 1(419)[address] [place], [place] 0602908-26-2025 12:13-0400 Body parrsw14 kgBenjamin Ball DO Work Phone: 1(419)[address] [place], [place] 0602908-14-2025 12:06-0400 Body vjpmeh645.42 cmBenjamin Ball DO Work Phone: 1(419)[address] [place], [place] 0602908-14-2025 12:06-0400 Body mass index (BMI) [Ratio]22.1 kg/e1Nbhpkrjf Ball DO Work Phone: 1(419)[address] [place], [place] 0602908-14-2025 12:06-0400 Body lvfpykuvnvg72.2 [degF]Eusebio Ball DO Work Phone: 1(419)[address] [place], [place] 0602908-14-2025 12:06-0400 Body kgBenjamin Ball DO Work Phone: 1(419)[address] [place], [place] 0602908-14-2025 12:06-0400 Diastolic blood mm[Hg]Eusebio Ball DO Work Phone: 1(419)[address] [place], [place] 0602908-14-2025 12:06-0400 Heart rate65 /minBenjamin Ball DO Work Phone: 1(419)[address] [place], [place] 0602908-14-2025 12:06-0400 SaO2% (BldA) [Mass fraction]97 %Eusebio Ball DO Work Phone: 1(419)[address] [place], [place] 0602908-14-2025 12:06-0400 Systolic blood abegtmfq286 mm[Hg]Eusebio Ball DO Work Phone: 1(419)[address] [place], [place] 0602906-05-2025 21:26-0400 Body eycykurmvel23.8 [degF]Eusebio Ball DO Work Phone: 1419)[address] [place], [place] 0602906-05-2025 21:26-0400 Diastolic blood bcioyqij94 mm[Hg]Eusebio Ball DO Work Phone: 1419)[address] [place], [place] 0602906-05-2025 21:26-0400 Heart rate61 /minBenjamin Ball DO Work Phone: 1419)[address] [place], [place] 0602906-05-2025 21:26-0400 Respiratory rate18 /minBenjamin Ball DO Work Phone: 1419)[address] [place], [place] 0602906-05-2025 21:26-0400 SaO2% (BldA) [Mass fraction]97 %Eusebio Ball DO Work Phone: 1419)[address] [place], [place] 0602906-05-2025 21:26-0400 Systolic blood eoadjylu586 mm[Hg]Eusebio Ball DO Work Phone: 1419)[address] [place], [place] 0602906-05-2025 11:09-0400 Body evzcor955.42 cmBenjamin Ball DO Work Phone: 1419)[address] [place], [place] 0602906-05-2025 11:09-0400 Body gzwuft72 kgBenjamin Ball DO Work Phone: 1419)[address] [place], [place] 0602905-27-2025 14:50-0400 Body rgbaif023.42 cmBenjamin Ball DO Work Phone: 1419)[address] [place], [place] 0602905-27-2025 14:50-0400 Body mass index (BMI) [Ratio]22.4 kg/e0Ksdcqswz Ball DO Work Phone: 1419)[address] [place], [place] 0602905-27-2025 14:50-0400 Body ucqlqe37.11 kgBenjamin Ball DO Work Phone: 1419)[address] [place], [place] 0602905-27-2025 14:50-0400 Diastolic blood pocschgv79 mm[Hg]Eusebio Ball DO Work Phone: 1419)[address] [place], [place] 0602905-27-2025 14:50-0400 Heart rate68 /minBenjamin Ball DO Work Phone: 1419)776-[address] [place], [place] 6468105-27-2025 14:50-0400 Respiratory rate12 /minBenjamin Ball DO Work Phone: 1419)[address] [place], [place] 0602905-27-2025 14:50-0400 Systolic blood ityejwwn163 mm[Hg]Eusebio Ball DO Work Phone: 1419)[address] [place], [place] 0602905-01-2025 02:11-0400 Diastolic blood harebkbe99 mm[Hg]Eusebio Ball DO Work Phone: 1419)[address]05-01-2025 02:11-0400 Heart rate77 /minBenjamin Ball DO Work Phone: 1419)[address]05-01-2025 02:11-0400 Respiratory rate18 /minBenjamin Ball DO Work Phone: 1419)[address] [place], [place] 0602905-01-2025 02:11-0400 SaO2% (BldA) [Mass fraction]95 %Eusebio Ball DO Work Phone: 1(415)[address] [place], [place] 0602905-01-2025 02:11-0400 Systolic blood mgxdznow882 mm[Hg]Eusebio Ball DO Work Phone: 1(778)[address] [place], [place] 0602904-30-2025 23:46-0400 Body .42 cmBenjamin Ball DO Work Phone: 1(609)[address] [place], [place] 0602904-30-2025 23:46-0400 Body hxvnfiahqij41.4 [degF]Eusebio Ball DO Work Phone: 1(440)118-[address] [place], [place] 6468104-30-2025 23:46-0400 Body akabuw33 kgBenjamin Ball DO Work Phone: 1(641)[address] [place], [place] 0602904-24-2025 10:42-0400 Body zcdjep325.9 cmDavid Ghassan DPM Work Phone: [facility]Wihlljefbr42-86-3438 10:42-0400Body mass index (BMI) [Ratio]21.16 kg/d5BhxlcacxDavid Ferrell DPM Work Phone: [facility] SystemMcpjvlltas28-66-1831 10:42-0400Body vxidnp99.76 kgNicholgermain Ferrell DPM Work Phone: [facility] SystemOkubikojuw52-78-7709 10:42-0400Respiratory rate18 /minNicjason Ferrell DPM Work Phone: [facility] SystemTelztsgbun70-42-9635 11:46-0400Body .9 cmBrianna Duffdon DO Work Phone: [facility]04-08-2025 11:46-0400 Body mass index (BMI) [Ratio]23.06 kg/h2RmvkwqfBrianna Duffdon DO Work Phone: [facility]04-08-2025 11:46-0400 Body aejtqt38.11 kgWilandry Duffdon DO Work Phone: [facility]04-08-2025 11:46-0400 Diastolic blood vhbywpxz71 mm[Hg]Brianna Gomez DO Work Phone: [facility]04-08-2025 11:46-0400 Heart rate68 /Lilliana Duffdon DO Work Phone: [facility]04-08-2025 11:46-0400 Systolic blood xxkibhzy982 mm[Hg]Brianna Gomez DO Work Phone: [facility]03-17-2025 12:53-0400 Body cfgaazvishd63.1 [degF]Eusebio Ball DO Work Phone: [facility]03-17-2025 12:53-0400 Diastolic blood julqdfzy88 mm[Hg]Eusebio Ball DO Work Phone: [facility]03-17-2025 12:53-0400 Heart rate71 /minBenjamin Ball DO Work Phone: [facility]03-17-2025 12:53-0400 Respiratory rate18 /minBenjamin Ball DO Work Phone: 1(419)[address] [place], [place] 0602903-17-2025 12:53-0400 SaO2% (BldA) [Mass fraction]99 %Eusebio Ball DO Work Phone: 1(419)[address] [place], [place] 0602903-17-2025 12:53-0400 Systolic blood mm[Hg]Eusebio Ball DO Work Phone: 1(419)[address] [place], [place] 0602903-17-2025 05:45-0400 Body wcetlo09.3 kgBenjamin Ball DO Work Phone: 1(419)[address] [place], [place] 0602903-16-2025 23:28-0400 Diastolic blood mm[Hg]Eusebio Ball DO Work Phone: 1(419)[address] [place], [place] 0602903-16-2025 23:28-0400 Heart rate71 /minBenjamin Ball DO Work Phone: 1(419)[address] [place], [place] 0602903-16-2025 23:28-0400 Systolic blood bxyxllud408 mm[Hg]Eusebio Ball DO Work Phone: 1(419)[address] [place], [place] 0602903-16-2025 22:26-0400 Respiratory rate13 /minBenjamin Ball DO Work Phone: 1(419)[address] [place], [place] 0602903-16-2025 22:26-0400 SaO2% (BldA) [Mass fraction]98 %Eusebio Ball DO Work Phone: 1(419)[address] [place], [place] 0602903-16-2025 20:27-0400 Body toillb827.42 cmBenjamin Ball DO Work Phone: 1(419)[address] [place], [place] 0602903-16-2025 20:27-0400 Body onnrzrhrweq72.8 [degF]Eusebio Ball DO Work Phone: 1(419)[address] [place], [place] 0602903-16-2025 20:27-0400 Body kcdcur98.6 kgBenjamin Ball DO Work Phone: 1(419)[address] [place], [place] 0602903-14-2025 08:17-0400 Body zbyymzzrlyi11.6 [degF]Eusebio Ball DO Work Phone: 1419)[address] [place], [place] 0602903-14-2025 08:17-0400 Diastolic blood tyflhtow76 mm[Hg]Eusebio Ball DO Work Phone: 1(419)[address] [place], [place] 0602903-14-2025 08:17-0400 Heart rate60 /minBenjamin Ball DO Work Phone: 1(419)[address] [place], [place] 0602903-14-2025 08:17-0400 Respiratory rate20 /minBenjamin Ball DO Work Phone: 1(419)[address] [place], [place] 0602903-14-2025 08:17-0400 SaO2% (BldA) [Mass fraction]100 %Eusebio Ball DO Work Phone: 1(419)[address] [place], [place] 0602903-14-2025 08:17-0400 Systolic blood sgzwwupz774 mm[Hg]Eusebio Ball DO Work Phone: 1(419)[address] [place], [place] 0602903-14-2025 08:13-0400 Body .42 cmBenjamin Ball DO Work Phone: 1(419)[address] [place], [place] 0602903-14-2025 08:13-0400 Body tomesq38.6 kgBenjamin Ball DO Work Phone: 1(419)[address] [place], [place] 0602902-26-2025 13:43-0500 Body tybhbu314.42 cmBenjamin Ball DO Work Phone: 1(419)[address] [place], [place] 0602902-26-2025 13:43-0500 Body mass index (BMI) [Ratio]21.4 kg/q7Hhaxylle Ball DO Work Phone: 1(419)[address] [place], [place] 0602902-26-2025 13:43-0500 Body kvvkse84.5 kgBenjamin Ball DO Work Phone: 1(419)[address] [place], [place] 0602902-26-2025 13:43-0500 Diastolic blood uujunsho01 mm[Hg]Eusebio Ball DO Work Phone: 1(419)[address] [place], [place] 0602902-26-2025 13:43-0500 Heart rate78 /minBenjamin Ball DO Work Phone: 1(419)[address] [place], [place] 0602902-26-2025 13:43-0500 Respiratory rate12 /minBenjamin Ball DO Work Phone: 1419)[address] [place], [place] 0602902-26-2025 13:43-0500 Systolic blood sucrhoui688 mm[Hg]Eusebio Ball DO Work Phone: 1419)[address] [place], [place] 0602901-30-2025 16:44-0500 Heart rate66 /minBenjamin Ball DO Work Phone: 1419)[address] [place], [place] 0602901-30-2025 16:44-0500 Respiratory rate20 /minBenjamin Ball DO Work Phone: 1419)[address] [place], [place] 0602901-30-2025 16:23-0500 Body aaokhk512.42 cmBenjamin Ball DO Work Phone: 1(298)[address] [place], [place] 0602901-30-2025 16:00-0500 Body refegssmusa22.4 [degF]Eusebio Ball DO Work Phone: 1419)[address] [place], [place] 0602901-30-2025 16:00-0500 Diastolic blood nopraorl22 mm[Hg]Eusebio Ball DO Work Phone: 1(109)[address] [place], [place] 0602901-30-2025 16:00-0500 SaO2% (BldA) [Mass fraction]96 %Eusebio Ball DO Work Phone: 1(690)[address] [place], [place] 0602901-30-2025 16:00-0500 Systolic blood ztgsazks814 mm[Hg]Eusebio Ball DO Work Phone: 1(475)[address] [place], [place] 0602901-30-2025 04:15-0500 Body fvxpgy20 kgBenjamin Ball DO Work Phone: [address] [place], [place] 0602901-29-2025 21:38-0500 Inhaled oxygen flow rate2 L/minBenjamin Ball DO Work Phone: 1(712)[address] [place], [place] 0602901-29-2025 16:45-0500 Heart rate77 /minBenjamin Ball DO Work Phone: 1(262)[address] [place], [place] 0602901-29-2025 16:45-0500 Respiratory rate20 /minBenjamin Ball DO Work Phone: 1419)[address] [place], [place] 0602901-29-2025 16:21-0500 Body qxofbs686.42 cmBenjamin Ball DO Work Phone: 1419)[address] [place], [place] 0602901-29-2025 16:21-0500 Body czswuhvuhiz98.7 [degF]Eusebio Ball DO Work Phone: 1419)[address] [place], [place] 0602901-29-2025 16:21-0500 Body khsfii24.6 kgBenjamin Ball DO Work Phone: 1419)[address] [place], [place] 0602901-29-2025 16:21-0500 Diastolic blood pyqbgahq92 mm[Hg]Eusebio Ball DO Work Phone: 1419)[address] [place], [place] 0602901-29-2025 16:21-0500 SaO2% (BldA) [Mass fraction]98 %Eusebio Ball DO Work Phone: 1419)[address] [place], [place] 0602901-29-2025 16:21-0500 Systolic blood ggxpothd192 mm[Hg]Eusebio Ball DO Work Phone: 1419)[address] [place], [place] 0602901-15-2025 13:33-0500 Body iqkqvq064.42 cmBenjamin Ball DO Work Phone: 1(401)[address] [place], [place] 0602901-15-2025 13:33-0500 Body mass index (BMI) [Ratio]22.2 kg/n5Xcupfwih Ball DO Work Phone: 1(419)[address] [place], [place] 0602901-15-2025 13:33-0500 Body nxqyfc30.6 kgBenjamin Ball DO Work Phone: 1419)[address] [place], [place] 0602901-15-2025 13:33-0500 Diastolic blood ehmtmpoa01 mm[Hg]Eusebio Ball DO Work Phone: 1419)[address] [place], [place] 0602901-15-2025 13:33-0500 Heart rate80 /minBenjamin Ball DO Work Phone: 1(590)[address] [place], [place] 0602901-15-2025 13:33-0500 Respiratory rate12 /minBenjamin Ball DO Work Phone: 1(229)[address] [place], [place] 0602901-15-2025 13:33-0500 Systolic blood zfxpxzei856 mm[Hg]Eusebio Ball DO Work Phone: 1419)[address] [place], [place] 0602901-11-2025 16:18-0500 Heart rate70 /minBenjamin Ball DO Work Phone: 1419)[address] [place], [place] 0602901-11-2025 14:51-0500 Body aquzcemmwcp61 [degF]Eusebio Ball DO Work Phone: 1419)[address] [place], [place] 0602901-11-2025 14:51-0500 Diastolic blood tahrtsge68 mm[Hg]Eusebio Ball DO Work Phone: 1(072)[address] [place], [place] 0602901-11-2025 14:51-0500 Respiratory rate18 /minBenjamin Ball DO Work Phone: 1(304)[address] [place], [place] 0602901-11-2025 14:51-0500 SaO2% (BldA) [Mass fraction]98 %Eusebio Ball DO Work Phone: 1(446)[address] [place], [place] 0602901-11-2025 14:51-0500 Systolic blood uqjtnizi427 mm[Hg]Eusebio Ball DO Work Phone: 1(915)[address] [place], [place] 0602901-11-2025 05:57-0500 Body bkraxc75 kgBenjamin Ball DO Work Phone: 1(574)[address] [place], [place] 0602901-10-2025 14:00-0500 Body yreche151.42 cmBenjamin Ball DO Work Phone: 1(157)[address] [place], [place] 0602901-10-2025 02:09-0500 Diastolic blood giacllkf59 mm[Hg]Eusebio Ball DO Work Phone: 1(946)[address] [place], [place] 0602901-10-2025 02:09-0500 Heart rate74 /minBenjamin Ball DO Work Phone: 1(825)[address] [place], [place] 0602901-10-2025 02:09-0500 Respiratory rate22 /minBenjamin Ball DO Work Phone: 1419)[address] [place], [place] 0602901-10-2025 02:09-0500 Systolic blood eusvllwa205 mm[Hg]Eusebio Ball DO Work Phone: 1419)[address] [place], [place] 0602901-09-2025 21:43-0500 Body ecdtmj836.88 cmBenjamin Ball DO Work Phone: 1419)[address] [place], [place] 0602901-09-2025 21:43-0500 Body uyujesmvbdx02 [degF]Eusebio Ball DO Work Phone: 1(419)[address] [place], [place] 0602901-09-2025 21:43-0500 Body faxbtm17.11 kgBenjamin Ball DO Work Phone: 1419)[address] [place], [place] 0602901-09-2025 21:43-0500 SaO2% (BldA) [Mass fraction]98 %Eusebio Ball DO Work Phone: 1(807)[address] [place], [place] 0602912-30-2024 14:13-0500 Body tbbbop184.42 cmBenjamin Ball DO Work Phone: 1(677)[address] [place], [place] 0602912-30-2024 14:13-0500 Body lpkplhagryl71.4 [degF]Eusebio Ball DO Work Phone: 1(273)[address] [place], [place] 0602912-30-2024 14:13-0500 Body jwvams23 kgBenjamin Ball DO Work Phone: 1(094)[address] [place], [place] 0602912-30-2024 14:13-0500 Diastolic blood mrxelgoz03 mm[Hg]Eusebio Ball DO Work Phone: 1(909)[address] [place], [place] 0602912-30-2024 14:13-0500 Heart rate69 /minBenjamin Ball DO Work Phone: 1(670)[address] [place], [place] 0602912-30-2024 14:13-0500 Respiratory rate16 /minBenjamin Ball DO Work Phone: 1(038)[facility] [place], [place] 6468112-30-2024 14:13-0500 SaO2% (BldA) [Mass fraction]98 %Eusebio Ball DO Work Phone: 1(419)[address] [place] 0602912-30-2024 14:13-0500 Systolic blood qskmiymm948 mm[Hg]Eusebio Ball DO Work Phone: 1(183)[address] [place], [place] 0602912-14-2024 03:06-0500 Diastolic blood tthojtmg50 mm[Hg]Eusebio Ball DO Work Phone: 1419)[address] [place], [place] 0602912-14-2024 03:06-0500 Heart rate75 /minBenjamin Ball DO Work Phone: 1419)[address] [place], [place] 0602912-14-2024 03:06-0500 Respiratory rate14 /minBenjamin Ball DO Work Phone: 1(392)[address] [place], [place] 0602912-14-2024 03:06-0500 SaO2% (BldA) [Mass fraction]97 %Eusebio Ball DO Work Phone: 1(236)[address] [place], [place] 0602912-14-2024 03:06-0500 Systolic blood mzucavpd588 mm[Hg]Eusebio Ball DO Work Phone: 1(514)[address] [place], [place] 0602912-14-2024 01:55-0500 Body dpikcy244.42 cmBenjamin Ball DO Work Phone: 1(310)[address] [place], [place] 0602912-14-2024 01:55-0500 Body llpouuhvlqq60.6 [degF]Eusebio Ball DO Work Phone: 1(062)[address] [place], [place] 0602912-14-2024 01:55-0500 Body jsjnpi52.7 kgBenjamin Ball DO Work Phone: 1(843)[address] [place], [place] 0602911-04-2024 16:39-0500 Respiratory rate16 /minBenjamin Ball DO Work Phone: 1(786)[address] [place], [place] 0602911-04-2024 16:20-0500 Diastolic blood dbsuiebr97 mm[Hg]Eusebio Ball DO Work Phone: 1(750)[address] [place], [place] 0602911-04-2024 16:20-0500 Heart rate70 /minBenjamin Ball DO Work Phone: 1(631)[address] [place], [place] 0602911-04-2024 16:20-0500 Systolic blood xkhypnav571 mm[Hg]Eusebio Ball DO Work Phone: [facility]11-04-2024 12:30-0500 Body .42 cmBenjamin Ball DO Work Phone: [facility]11-04-2024 12:30-0500 Body .8 [degF]Eusebio Ball DO Work Phone: [facility]11-04-2024 12:30-0500 Body gmdbde03.6 kgBenjamin Ball DO Work Phone: [facility]11-04-2024 12:30-0500 SaO2% (BldA) [Mass fraction]100 %Eusebio Ball DO Work Phone: [facility]10-24-2024 09:55-0400 Body .9 cmDarlenelonnie DuffJason DO Work Phone: [facility]10-24-2024 09:55-0400 Body mass index (BMI) [Ratio]21.56 kg/i7Ntxcifn Jason DO Work Phone: [facility]10-24-2024 09:55-0400 Body idsiiv89.12 kgWilandry Jason DO Work Phone: [facility]10-24-2024 09:55-0400 Diastolic blood gsaozdtq73 mm[Hg]Brianna Duffdon DO Work Phone: [facility]10-24-2024 09:55-0400 Heart rate60 /minWitiandarrian Jason DO Work Phone: [facility]10-24-2024 09:55-0400 Systolic blood mm[Hg]Brianna Duffdon DO Work Phone: [facility]10-17-2024 09:14-0400 Body zizpag785.9 cmDavid JIMENEZM Work Phone: 1(419)626-[address] [place], [place] [address]Cmlbzgqpnj26-76-6327 09:14-0400Body mass index (BMI) [Ratio]21.16 kg/h2Hlkbdesfjason Ferrell DPM Work Phone: 1(648)665-[address] [place], [place] [address]Okasfawkss56-25-5632 09:14-0400Body gddxic34.76 kgDavid Ferrell DPM Work Phone: 1(293)[address] [place], [place] [address]Vvybvbpvto40-25-1914 09:14-0400Diastolic blood yypbmeoa14 mm[Hg]David Ferrell DPM Work Phone: 1(058)[address]10-17-2024 09:14-0400Heart rate84 /min David Ferrell DPM Work Phone: 1(423)816-[address] [place], [place] [address]Jmwpcaxmsi20-96-0407 09:14-0400Systolic blood mm[Hg]David Ferrell DPM Work Phone: 1(657)[address]09-11-2024 14:18-0400Body .72 cmDO Eusebio Ball Work Phone: 1(424)525-[address] [place], [place] 6468109-11-2024 14:18-0400 Body mass index (BMI) [Ratio]23.4 kg/m2DO Eusebio Ball Work Phone: 1(626)707-[address] [place], [place] 6468109-11-2024 14:18-0400 Body dqcwdi58.02 kgDO Eusebio Ball Work Phone: 1(176)748-[address] [place], [place] 6468109-11-2024 14:18-0400 Diastolic blood aijnwyfj03 mm[Hg]DO Eusebio Ball Work Phone: 1(824)581-[address] [place], [place] 6468109-11-2024 14:18-0400 Heart rate83 /minDO Eusebio Ball Work Phone: 1(582)287-87[facility]09-11-2024 14:18-0400 Respiratory rate12 /minDO Eusebio Ball Work Phone: 1(623)055-[address] [place], [place] 6468109-11-2024 14:18-0400 Systolic blood mm[Hg]DO Eusebio Ball Work Phone: 1(840)[address]08-01-2024 12:05-0400 Body totfjh422.72 cmDO Eusebio Ball Work Phone: 1(059)[address]08-01-2024 12:05-0400 Body mass index (BMI) [Ratio]20.6 kg/m2DO Eusebio Ball Work Phone: 1(938)[address]08-01-2024 12:05-0400 Body criebc19.46 kgDO Eusebio Ball Work Phone: 1(044)[address]08-01-2024 12:05-0400 Diastolic blood yshdmiwn68 mm[Hg]DO Eusebio Ball Work Phone: 1(671)[address]08-01-2024 12:05-0400 Heart rate77 /minDO Eusebio Ball Work Phone: 1(815)[address] [place], [place] 0602908-01-2024 12:05-0400 Respiratory rate12 /minDO Eusebio Ball Work Phone: 1(474)[address] [place], [place] 0602908-01-2024 12:05-0400 Systolic blood mtayylsj140 mm[Hg]DO Eusebio Ball Work Phone: 1(760)[address]07-23-2024 13:14-0400 Body fxvfxhmqcoo76.2 [degF]DO Eusebio Ball Work Phone: 1(572)[address]07-23-2024 13:14-0400 Diastolic blood awgfztml57 mm[Hg]DO Eusebio Ball Work Phone: 1(352)702-[address] [place], [place] 6468107-23-2024 13:14-0400 Heart rate78 /minDO Eusebio Ball Work Phone: 1(058)720-[address] [place], [place] 6468107-23-2024 13:14-0400 Respiratory rate24 /minDO Eusebio Ball Work Phone: 1(739)[facility] [place], [place] 6468107-23-2024 13:14-0400 SaO2% (BldA) [Mass fraction]98 %DO Eusebio Ball Work Phone: 1(246)853-[address] [place], [place] 6468107-23-2024 13:14-0400 Systolic blood hgdeaweo698 mm[Hg]DO Eusebio Ball Work Phone: 1(419)[address]07-23-2024 05:37-0400 Body axvnix48.1 kgDO Eusebio Ball Work Phone: 1(781)306-[address] [place], [place] 6468107-23-2024 00:00-0400 Inhaled oxygen flow rate2 L/minDO Eusebio Ball Work Phone: 1(112)[address] [place], [place] 0602907-22-2024 17:38-0400 Inhaled oxygen %DO Eusebio Ball Work Phone: 1(626)[address] [place], [place] 0602907-22-2024 10:46-0400 Body oyczej979.42 cmDO Eusebio Ball Work Phone: 1(667)[address] [place], [place] 0602907-22-2024 10:39-0400 Inhaled oxygen ruiaxlsvpagle83 %DO Eusebio Ball Work Phone: 1(217)[address] [place], [place] 0602907-22-2024 10:39-0400 SaO2% (BldA) [Mass fraction]96 %DO Eusebio Ball Work Phone: 1(400)[address] [place], [place] 0602907-22-2024 10:04-0400 Heart rate67 /minDO Eusebio Ball Work Phone: 1(219)[facility] [place], [place] 6468107-22-2024 10:04-0400 Inhaled oxygen flow rate35 L/minDO Eusebio Ball Work Phone: 1(939)173-[address] [place], [place] 6468107-22-2024 10:04-0400 Respiratory rate24 /minDO Eusebio Ball Work Phone: 1(337)[facility] [place], [place] 6468107-22-2024 10:02-0400 Diastolic blood jfocafoe18 mm[Hg]DO Eusebio Ball Work Phone: 1(085)028-[address] [place], [place] 6468107-22-2024 10:02-0400 Systolic blood fiohclez581 mm[Hg]DO Eusebio Ball Work Phone: 1(513)[address] [place], [place] 0602907-22-2024 07:22-0400 Body mvohhdqctvz53.1 [degF]DO Eusebio Ball Work Phone: 1(716)[address]07-22-2024 05:32-0400 Body zriozw187.42 cmDO Eusebio Ball Work Phone: 1(844)615-[address] [place], [place] 6468107-22-2024 05:32-0400 Body verecb45 kgDO Eusebio Ball Work Phone: 1(982)[address]07-15-2024 17:59-0400 Body bunzkowobeo78.1 [degF]DO Eusebio Ball Work Phone: 1(035)[address] [place], [place] 0602907-15-2024 17:59-0400 Diastolic blood sfngjsti44 mm[Hg]DO Eusebio Ball Work Phone: 1(121)[address]07-15-2024 17:59-0400 Heart rate72 /minDO Eusebio Ball Work Phone: 1419)[address] [place], [place] 0602907-15-2024 17:59-0400 Respiratory rate18 /minDO Eusebio Ball Work Phone: 1(246)[address] [place], [place] 0602907-15-2024 17:59-0400 SaO2% (BldA) [Mass fraction]100 %DO Eusebio Ball Work Phone: 1(017)[address] [place], [place] [address]07-15-2024 17:59-0400 Systolic blood metycddg080 mm[Hg]DO Eusebio Ball Work Phone: 1(380)[address] [place], [place] [address]07-15-2024 12:46-0400 Body fcoxkg439.42 cmDO Eusebio Ball Work Phone: 1(326)[address] [place], [place] [address]07-15-2024 12:30-0400 Diastolic blood zarnysot57 mm[Hg]DO Eusebio Ball Work Phone: 1(655)423-[address] [place], [place] 6468107-15-2024 12:30-0400 Heart rate74 /minDO Eusebio Ball Work Phone: 1(432)[facility] [place], [place] 6468107-15-2024 12:30-0400 Systolic blood ldqintyw474 mm[Hg]DO Eusebio Ball Work Phone: 1(258)[address] [place], [place] [address]07-15-2024 09:25-0400 Body ocvjrifudfn95 [degF]DO Eusebio Ball Work Phone: 1(899)[address] [place], [place] [address]07-15-2024 09:25-0400 Respiratory rate16 /minDO Eusebio Ball Work Phone: 1(203)[address]07-15-2024 09:25-0400 SaO2% (BldA) [Mass fraction]98 %DO Eusebio Ball Work Phone: 1(135)[address]07-15-2024 06:45-0400 Body wfauvu66.2 kgDO Eusebio Ball Work Phone: 1(761)[address]07-14-2024 06:56-0400 Diastolic blood jncjekil87 mm[Hg]DO Eusebio Ball Work Phone: 1(179)[address]07-14-2024 06:56-0400 Heart rate75 /minDO Eusebio Ball Work Phone: 1(916)[address] [place], [place] [address]07-14-2024 06:56-0400 Respiratory rate14 /minDO Eusebio Ball Work Phone: 1(768)[address] [place], [place] [address]07-14-2024 06:56-0400 SaO2% (BldA) [Mass fraction]93 %DO Eusebio Ball Work Phone: 1(693)[address] [place], [place] [address]07-14-2024 06:56-0400 Systolic blood wgyqwehy299 mm[Hg]DO Eusebio Ball Work Phone: 1(153)[address] [place], [place] [address]07-14-2024 02:40-0400 Body chvhuk454.42 cmDO Eusebio Ball Work Phone: 1(973)[address] [place], [place] [address]07-14-2024 02:40-0400 Body qctqkdeskfb82.5 [degF]DO Eusebio Ball Work Phone: 1(877)[address]07-14-2024 02:40-0400 Body xiibcb35.5 kgDO Eusebio Ball Work Phone: 1(709)[address] [place], [place] [address]05-23-2024 09:35-0400 Body .42 cmDO Eusebio Ball Work Phone: 1(304)[address]05-23-2024 09:35-0400 Body mcsaiuhvpmg23.8 [degF]DO Eusebio Ball Work Phone: 1(417)[address] [place], [place] [address]05-23-2024 09:35-0400 Diastolic blood teqnujra10 mm[Hg]DO Eusebio Ball Work Phone: [facility]05-23-2024 09:35-0400 Heart rate76 /minDO Eusebio Ball Work Phone: [facility]05-23-2024 09:35-0400 Respiratory rate16 /minDO Eusebio Ball Work Phone: [facility]05-23-2024 09:35-0400 SaO2% (BldA) [Mass fraction]97 %DO Eusebio Ball Work Phone: [facility]05-23-2024 09:35-0400 Systolic blood lgaxcrvh337 mm[Hg]DO Eusebio Ball Work Phone: [facility]04-16-2024 15:31-0400 Body sprpuv465.9 cmBrianna Gomez DO Work Phone: 1(367)370-22[facility]04-16-2024 15:31-0400 Body mass index (BMI) [Ratio]22.92 kg/k6DptyygkBrianna Gomez DO Work Phone: 1(100)996-95[facility]04-16-2024 15:31-0400 Body auitsw69.66 kgWilandry Gomez DO Work Phone: 1(211)404-65[facility]04-16-2024 15:31-0400 Diastolic blood gzkkapwb37 mm[Hg]Brianna Gomez DO Work Phone: 1([phone] [place], [place] 3576904-16-2024 15:31-0400 Heart rate76 /minBrianna Gomez DO Work Phone: 1(576)166-[address] [place], [place] 3576904-16-2024 15:31-0400 Systolic blood wlldpzwa658 mm[Hg]Brianna Duffdon DO Work Phone: 1(457)277-[address] [place], [place] 3576904-09-2024 12:52-0400 Diastolic blood vdczxlog14 mm[Hg]DO Eusebio Ball Work Phone: [facility]04-09-2024 12:52-0400 Heart rate62 /TeresaO Eusebio Ball Work Phone: 1(010)819-[address] [place], [place] 6468104-09-2024 12:52-0400 Respiratory rate14 /TeresaO Eusebio Ball Work Phone: 1(291)929-[address] [place], [place] 6468104-09-2024 12:52-0400 SaO2% (BldA) [Mass fraction]95 %DO Eusebio Ball Work Phone: 1(685)[address]04-09-2024 12:52-0400 Systolic blood mm[Hg]DO Eusebio Ball Work Phone: 1(964)[address] [place], [place] 0602904-09-2024 11:52-0400 Inhaled oxygen flow rate6 L/TeresaO Eusebio Ball Work Phone: 1(584)[address]04-09-2024 08:50-0400 Body mass index (BMI) [Ratio]22.1 kg/m2DO Eusebio Ball Work Phone: 1(813)[address]04-09-2024 08:42-0400 Body dowzng596.42 cmDO Eusebio Ball Work Phone: 1(370)[address]04-09-2024 08:42-0400 Body cqkuadsbsmc87.8 [degF]DO Eusebio Ball Work Phone: 1(618)[address] [place], [place] 0602904-09-2024 08:42-0400 Body qqyhct71.5 kgDO Eusebio Ball Work Phone: 1(564)[address]03-28-2024 14:43-0400 Body edwpwd999.42 cmDO Eusebio Ball Work Phone: 1(210)031-[address] [place], [place] 6468103-28-2024 14:43-0400 Body mass index (BMI) [Ratio]21.2 kg/m2DO Eusebio Ball Work Phone: 1(199)62196 [address]03-28-2024 14:43-0400 Body .14 kgDO Eusebio Ball Work Phone: 1(610)46[address]03-28-2024 14:43-0400 Diastolic blood jnkixvag74 mm[Hg]DO Eusebio Ball Work Phone: 1(080)767-88[facility]03-28-2024 14:43-0400 Heart rate73 /minDO Eusebio Ball Work Phone: 1(977)944-[address] [place], [place] 6468103-28-2024 14:43-0400 Respiratory rate12 /minDO Eusebio Ball Work Phone: 1(051)081-[address] [place], [place] 6468103-28-2024 14:43-0400 Systolic blood ymhapjkw337 mm[Hg]DO Eusebio Ball Work Phone: 1(139)[address]03-14-2024 08:40-0400 Diastolic blood dgpbitxj84 mm[Hg]DO Eusebio Ball Work Phone: 1(134)9[address]03-14-2024 08:40-0400 Heart rate67 /minDO Eusebio Ball Work Phone: 1(675)[address] [place], [place] 0602903-14-2024 08:40-0400 Respiratory rate18 /minDO Eusebio Ball Work Phone: 1(516)[address] [place], [place] 0602903-14-2024 08:40-0400 SaO2% (BldA) [Mass fraction]99 %DO Eusebio Ball Work Phone: 1(690)[address] [place], [place] 0602903-14-2024 08:40-0400 Systolic blood mm[Hg]DO Eusebio Ball Work Phone: 1(269)[address] [place], [place] 0602903-14-2024 08:16-0400 Body rbjask608.42 cmDO Eusebio Ball Work Phone: 1(200)[address] [place], [place] 0602903-14-2024 08:16-0400 Body fsigjc65.57 kgDO Eusebio Ball Work Phone: 1(896)[address] [place], [place] 0602902-29-2024 10:57-0500 Body kaycrk004.42 cmDO Eusebio Ball Work Phone: 1(927)[address] [place], [place] 0602902-29-2024 10:57-0500 Body mass index (BMI) [Ratio]20.7 kg/m2DO Eusebio Ball Work Phone: 1(382)[address] [place], [place] 0602902-29-2024 10:57-0500 Body qskbodxqgmf58.6 [degF]DO Eusebio Ball Work Phone: 1(055)707-[facility]02-29-2024 10:57-0500 Body qjiplo68.21 kgDO Eusebio Ball Work Phone: 1(783)242-85[facility]02-29-2024 10:57-0500 Diastolic blood laqmwwxu26 mm[Hg]DO Eusebio Ball Work Phone: 1(214)767-[address] [place], [place] 6468102-29-2024 10:57-0500 Heart rate82 /minDO Eusebio Ball Work Phone: 1(293)220-[address] [place], [place] 6468102-29-2024 10:57-0500 Respiratory rate16 /minDO Eusebio Ball Work Phone: 1(032)[facility] [place], [place] 6468102-29-2024 10:57-0500 SaO2% (BldA) [Mass fraction]98 %DO Eusebio Ball Work Phone: 1(110)867-[address] [place], [place] 6468102-29-2024 10:57-0500 Systolic blood rbcerhgc943 mm[Hg]DO Eusebio Ball Work Phone: 1(859)[address] [place], [place] 0602902-29-2024 08:39-0500 Body wzeqjq819.42 cmDO Eusebio Ball Work Phone: 1(844)[address]02-29-2024 08:39-0500 Body mass index (BMI) [Ratio]20.7 kg/m2DO Eusebio Ball Work Phone: 1(085)320-[address] [place], [place] 6468102-29-2024 08:39-0500 Body uwgtkyrvfmx14.4 [degF]DO Eusebio Ball Work Phone: 1(177)[facility] [place], [place] 6468102-29-2024 08:39-0500 Body zddrac02.21 kgDO Eusebio Ball Work Phone: 1(209)412-[address] [place], [place] 6468102-29-2024 08:39-0500 Diastolic blood pjlylikh71 mm[Hg]DO Eusebio Ball Work Phone: 1(859)138-[address] [place], [place] 6468102-29-2024 08:39-0500 Systolic blood mm[Hg]DO Eusebio Ball Work Phone: 1(243)354-76[facility]02-14-2024 11:26-0500 Heart rate70 /minDO Eusebio Ball Work Phone: 1(417)579-[address] [place], [place] 6468102-14-2024 11:08-0500 Respiratory rate18 /minDO Eusebio Ball Work Phone: 1(476)974-[address] [place], [place] 6468102-14-2024 11:08-0500 SaO2% (BldA) [Mass fraction]98 %DO Eusebio Ball Work Phone: 1(481)870-[address] [place], [place] 6468102-14-2024 10:04-0500 Body onnnnk053.42 cmDO Eusebio Ball Work Phone: 1(645)[address]02-14-2024 10:04-0500 Body epzaem07 kgDO Eusebio Ball Work Phone: 1(272)[address] [place], [place] 0602902-14-2024 10:03-0500 Body waslbfjfuox37.8 [degF]DO Eusebio Ball Work Phone: 1(442)645-[address] [place], [place] 6468102-14-2024 10:03-0500 Diastolic blood gijfddxo42 mm[Hg]DO Eusebio Ball Work Phone: 1(008)539-[address] [place], [place] 6468102-14-2024 10:03-0500 Systolic blood bxsxjxuq510 mm[Hg]DO Eusebio Ball Work Phone: 1(179)500-[address] [place], [place] 6468102-13-2024 10:46-0500 Body amzvvbvrkzl16 [degF]DO Eusebio Ball Work Phone: 1(253)339-[address] [place], [place] 6468102-13-2024 10:46-0500 Body sxmryt11.93 kgDO Eusebio Ball Work Phone: 1(540)437-[address] [place], [place] 6468102-13-2024 10:46-0500 Diastolic blood xnwfpmob96 mm[Hg]DO Eusebio Ball Work Phone: 1(614)353-[address] [place], [place] 6468102-13-2024 10:46-0500 Heart slwe962 /minDO Eusebio Ball Work Phone: 1(473)211-[address] [place], [place] 6468102-13-2024 10:46-0500 Respiratory rate18 /minDO Eusebio Ball Work Phone: [facility]02-13-2024 10:46-0500 SaO2% (BldA) [Mass fraction]98 %DO Eusebio Ball Work Phone: [facility]02-13-2024 10:46-0500 Systolic blood nqrpyfrb212 mm[Hg]DO Eusebio Ball Work Phone: [facility]01-11-2024 09:00-0500 Body cykzqj754.42 cmMattmolly Mendoza Other [facility]01-11-2024 09:00-0500 Body mass index (BMI) [Ratio]20.58 kg/v7XgqdogsRomain Mendoza Other [employer] Other 01-11-2024 09:00-0500Body yzkzfszxjdh20.6 [degF] Romain Mendoza Other [employer] Other 01-11-2024 09:00-0500Body wdotbx88.76 kgMaike Mendoza Other [facility]01-11-2024 09:00-0500 Diastolic blood vhnehzwk53 mm[Hg]Romain Mendoza Other [facility]01-11-2024 09:00-0500 SaO2% (BldA) [Mass fraction]97 %Romain Mendoza Other [employer] Other 01-11-2024 09:00-0500Systolic blood xsuzvxea22 mm[Hg] Romain Mendoza Other [facility]12-31-2023 14:00-0500 Body kjtirrznxmk39 [degF]DO Eusebio Ball Work Phone: [facility]12-31-2023 14:00-0500 Diastolic blood mm[Hg]DO Eusebio Ball Work Phone: 1(730)691-15[facility]12-31-2023 14:00-0500 Heart rate68 /minDO Eusebio Ball Work Phone: 1(205)237-24[facility]12-31-2023 14:00-0500 Respiratory rate18 /minDO Eusebio Ball Work Phone: 1(123)801-[address] [place], [place] 6468112-31-2023 14:00-0500 SaO2% (BldA) [Mass fraction]95 %DO Eusebio Ball Work Phone: 1(458)680-[address] [place], [place] 6468112-31-2023 14:00-0500 Systolic blood hpvyikeb660 mm[Hg]DO Eusebio Ball Work Phone: 1(206)885-[address] [place], [place] 6468112-31-2023 10:55-0500 Body imevmg457.88 cmDO Eusebio Ball Work Phone: 1(026)[address]6 [address]12-31-2023 05:06-0500 Body .6 kgDO Eusebio Ball Work Phone: 1(675)04[address]12-26-2023 10:15-0500 Body bsvyvt548.42 cmBenjamin Ball Other [address] [place], [place] 6468112-26-2023 10:15-0500 Body mass index (BMI) [Ratio]20.92 kg/m4Hdsowcfv Ball Other [facility] [employer] Other Phone: [phone]710 10:15-0500Body ozjprn96.94 kgBenjamin Ball Other [facility] [employer] Other [phone] 10:15-0500Body jpamlo41.93 kgDO Eusebio Ball Work Phone: 1(530)772-26[facility]12-26-2023 10:15-0500 Diastolic blood cccyqqua95 mm[Hg]Eusebio Ball Other [address] [place], [place] 6468112-26-2023 10:15-0500 Respiratory rate12 /minBenjamin Ball Other [employer] Other 12-26-2023 10:15-0500Systolic blood sevltden77 mm[Hg] Eusebio Ball Other [facility]11-28-2023 09:30-0500 Body dxisxc143.42 cmBenjamin Ball Other [facility]11-28-2023 09:30-0500 Body mass index (BMI) [Ratio]20.98 kg/x4Uwuizmij Ball Other [employer] Other [id number] 09:30-0500Body lnyzfh56.12 kgBenjamin Ball Other [facility]11-28-2023 09:30-0500 Diastolic blood mm[Hg]Eusebio Ball Other [facility]11-28-2023 09:30-0500 Respiratory rate12 /minBenjamin Ball Other [employer] Other 11-28-2023 09:30-0500Systolic blood feyaaeem959 mm[Hg] Eusebio Ball Other [facility]11-16-2023 09:45-0500 Body udrnvg075.42 cmMattmolly Mendoza Other [employer] Other 11-16-2023 09:45-0500Body mass index (BMI) [Ratio] 21.11 kg/b5NmxdicmRomain Mendoza Other [employer] Other 11-16-2023 09:45-0500Body pxqzcjrryrh14.8 [degF] Romain Mendoza Other [employer] Other 11-16-2023 09:45-0500Body hehyrh83.58 kgMattjuliannadenilson Mendoza Other [employer] Other 11-16-2023 09:45-0500Diastolic blood unbkomlw34 mm[Hg] Romain Reji Other [employer] Other 11-16-2023 09:45-8311CtZ5% (BldA) [Mass fraction]98 % Romain Reji Other [employer] Other 11-16-2023 09:45-0500Systolic blood mm[Hg] Romain Reji Other [employer] Other 10-30-2023 13:55-0400Diastolic blood kxbzlyem82 mm[Hg] DO Eusebio Ball Work Phone: 1(683)809-10[facility]10-30-2023 13:55-0400 Heart rate72 /minDO Eusebio Ball Work Phone: 1(117)208-13[facility]10-30-2023 13:55-0400 Respiratory rate16 /minDO Eusebio Ball Work Phone: 1(200)636-73[facility]10-30-2023 13:55-0400 SaO2% (BldA) [Mass fraction]99 %DO Eusebio Ball Work Phone: 1([phone])166-26[facility]10-30-2023 13:55-0400 Systolic blood sicmumlh842 mm[Hg]DO Eusebio Ball Work Phone: 1([phone]10-30-2023 12:15-0400 Body wgeuoy146.42 cmDO Eusebio Ball Work Phone: 1(890)164-22[facility]10-30-2023 12:15-0400 Body .48 kgDO Eusebio Ball Work Phone: 1([phone]10-26-2023 09:30-0400 Body iapmnk347.42 cmZina Childs Other [employer] Other 10-26-2023 09:30-0400Body mass index (BMI) [Ratio] 21.11 kg/m0FljwhxZina Childs Other [employer] Other 10-26-2023 09:30-0400Body kfghvydpmvx81.6 [degF]Zina Hanhomer Other [employer] Other 10-26-2023 09:30-0400Body ldyoro92.58 kgZina Hanjaironjhoana Other [employer] Other 10-26-2023 09:30-0400Diastolic blood yvzmpico87 mm[Hg] Zina Naz Other [employer] Other 10-26-2023 09:30-6686CtU3% (BldA) [Mass fraction]97 % Zina Hanhomer Other [employer] Other 10-26-2023 09:30-0400Systolic blood lveqrixk837 mm[Hg] Zina Childs Other [employer] Other 08-25-2023 09:40-0400Diastolic blood xovcigeh26 mm[Hg] DO Eusebio Ball Work Phone: [facility]08-25-2023 09:40-0400 Heart rate71 /minDO Eusebio Ball Work Phone: [facility]08-25-2023 09:40-0400 Respiratory rate16 /minDO Eusebio Ball Work Phone: [facility]08-25-2023 09:40-0400 SaO2% (BldA) [Mass fraction]98 %DO Eusebio [employer] Work Phone: [facility]08-25-2023 09:40-0400 Systolic blood mtnzvmom787 mm[Hg]DO Eusebio [employer] Work Phone: [facility]08-25-2023 07:41-0400 Body achhfu781.88 cmDO Eusebio [employer] Work Phone: [facility]08-25-2023 07:41-0400 Body eowgwo45.57 kgDO Eusebio [employer] Work Phone: [facility]08-23-2023 10:00-0400 Body yiotpx389.42 cmMaike Mendoza Other [employer] Other 08-23-2023 10:00-0400Body mass index (BMI) [Ratio]21.5 kg/j6FuojlrgRomain Mendoza Other [employer] Other 08-23-2023 10:00-0400Body fejnjtzmxhy09.6 [degF] Romain Mendoza Other [employer] Other 08-23-2023 10:00-0400Body okqfuk74.94 kgMaike Mendoza Other [employer] Other 08-23-2023 10:00-0400Diastolic blood picgqreb78 mm[Hg] Romain Mendoza Other [employer] Other 08-23-2023 10:00-9369RwZ0% (BldA) [Mass fraction]96 % Romain Mendoza Other [employer] Other 08-23-2023 10:00-0400Systolic blood mbzitbxl930 mm[Hg] Romain Mendoza Other [facility] [employer] Other 08-08-2023 08:38-0400Body ejohbz989.88 cmDO Eusebio Ball Work Phone: [facility]08-08-2023 08:38-0400 Body .7 [degF]DO Eusebio Ball Work Phone: [facility]08-08-2023 08:38-0400 Body abraxh57.06 kgDO Eusebio Ball Work Phone: [facility]08-08-2023 08:38-0400 Diastolic blood nxqltjqy44 mm[Hg]DO Eusebio Ball Work Phone: [facility]08-08-2023 08:38-0400 Heart rate75 /minDO Eusebio Ball Work Phone: [facility]08-08-2023 08:38-0400 Respiratory rate20 /minDO Eusebio Ball Work Phone: [phone]08-08-2023 08:38-0400 SaO2% (BldA) [Mass fraction]100 %DO Eusebio Ball Work Phone: [facility]08-08-2023 08:38-0400 Systolic blood hzbqitmt777 mm[Hg]DO Eusebio Ball Work Phone: [facility]07-12-2023 15:00-0400 Body mass index (BMI) [Ratio]21.5 kg/s2Yttjt Joyce Other [facility] [employer] Other 07-12-2023 15:00-0400Body lpgxdvknifs07.6 [degF]Angel Joyce Other [facility] [employer] Other 07-12-2023 15:00-0400Body mghnoq15.94 kgAbdul Jocye Other [employer] Other 07-12-2023 15:00-0400Diastolic blood qxnubrjw19 mm[Hg] Angel Joyce Other [employer] Other 07-12-2023 15:00-0400Respiratory rate16 /minAbdul Joyce Other [employer] Other 07-12-2023 15:00-6696ZtO8% (BldA) [Mass fraction]98 % Angel Joyce Other [employer] Other 07-12-2023 15:00-0400Systolic blood zmrynlix315 mm[Hg] Angel Joyce Other [employer] Other 07-12-2023 10:00-0400Body .42 cmZina Childs Other [employer] Other 07-12-2023 10:00-0400Body mass index (BMI) [Ratio] 21.24 kg/z8TzhazuZina Childs Other [employer] Other 07-12-2023 10:00-0400Body udhpkwdrmvo53.3 [degF]Zina Childs Other [employer] Other 07-12-2023 10:00-0400Body rekjby90.03 kgZina Childs Other [employer] Other 07-12-2023 10:00-0400Diastolic blood oepvvlew18 mm[Hg] Zina Childs Other [employer] Other 07-12-2023 10:00-1187VnA8% (BldA) [Mass fraction]99 % Zina Childs Other [employer] Other 07-12-2023 10:00-0400Systolic blood ydzduvfq665 mm[Hg] Zina Childs Other [employer] Other 07-11-2023 09:21-0400Body .88 cmBenjamin E Ball Work Phone: [phone][employer] [place] [employer] DO Work Phone: 1(465) 809-470107-11-2023 09:21-0400Body mass index (BMI) [Ratio] 21.43 kg/e1Jmkdierq E Ball Work Phone: [phone]-Qrcar [place] [employer] [address] DO Work Phone: 1(134) 469-862007-11-2023 09:21-0400Body surface area Derived from formula1.93 q1Sknxisfn E Ball Work Phone: mp133-1075YL-Qoywx [place] [employer] 250 DO Work Phone: 1(601) 249-553007-11-2023 09:21-0400Body ugrlwi72.67 kgBenjamin E Ball Work Phone: mp153-5888ZW-Xzrvt [place] [employer] 250 DO Work Phone: 1(449) 535-528507-11-2023 09:21-0400Diastolic blood lwqslyme81 mm[Hg] Eusebio E Ball Work Phone: [phone]-Igpsn [place] [employer] 250 DO Work Phone: 1(893) 903-389207-11-2023 09:21-0400Heart rate78 /minBenjamin E Ball Work Phone: mp211-8176DG-Uyazg [place] [employer] 250 DO Work Phone: 1(551) 666-872107-11-2023 09:21-0400Systolic blood vohtfpry937 mm[Hg] Eusebio Rodríguez Ball Work Phone: 1(973) 109-6226206-9222ZK-Nzxkr [facility] DO Work Phone: 1(723) 916-246206-26-2023 11:20-0400Body zwjceq239.42 cmAbdul Joyce Other [employer] Other 06-26-2023 11:20-0400Body mass index (BMI) [Ratio]22 kg/h9Juzvr Joyce Other [employer] Other 06-26-2023 11:20-0400Body fngboqshgaw41.4 [degF]Angel Joyce Other [employer] Other 06-26-2023 11:20-0400Body lxxroy47.66 kgAbdul Joyce Other [employer] Other 06-26-2023 11:20-0400Diastolic blood ketkhmnj82 mm[Hg] Angel Joyce Other [employer] Other 06-26-2023 11:20-0400Respiratory rate16 /minAbdul Joyce Other [employer] Other 06-26-2023 11:20-8702DwE6% (BldA) [Mass fraction]97 % Angel Joyce Other [employer] Other 06-26-2023 11:20-0400Systolic blood theggjhl73 mm[Hg] Angel Joyce Other [employer] Other 06-19-2023 22:30-0400Diastolic blood fzeruwai41 mm[Hg] DO Eusebio Ball Work Phone: [facility]06-19-2023 22:30-0400 Heart rate71 /minDO Eusebio [employer] Work Phone: [facility]06-19-2023 22:30-0400 Respiratory rate17 /minDO Eusebio Ball Work Phone: [facility]06-19-2023 22:30-0400 SaO2% (BldA) [Mass fraction]99 %DO Eusebio [employer] Work Phone: [facility]06-19-2023 22:30-0400 Systolic blood rzeszrlh472 mm[Hg]DO Eusebio [employer] Work Phone: 1([phone]06-19-2023 17:30-0400 Body ywprkxsisyw86.9 [degF]DO Eusebio [employer] Work Phone: 1(375)254[facility]59[facility]06-19-2023 07:58-0400 Body qxxtye727.42 cmDO Eusebio [employer] Work Phone: 1(735)[phone]06-19-2023 07:58-0400 Body rnseeq34 kgDO Eusebio [employer] Work Phone: [phone]06-07-2023 11:15-0400 Body .42 cmMaike Mendoza Other [facility] [employer] Other 06-07-2023 11:15-0400Body mass index (BMI) [Ratio] 21.11 kg/v4KnoanikRomain Mendoza Other [employer] Other 06-07-2023 11:15-0400Body jjkvsluzdcv61.1 [degF] Romain Mendoza Other [employer] Other 06-07-2023 11:15-0400Body fneijt13.58 kgMaike Mendoza Other [employer] Other 06-07-2023 11:15-0400Diastolic blood kafzfnoj31 mm[Hg] Romain Florezkaley Other [employer] Other 06-07-2023 11:15-7856PlI2% (BldA) [Mass fraction]97 % Romain Florezkaley Other [employer] Other 06-07-2023 11:15-0400Systolic blood mm[Hg] Romain Florezkaley Other [employer] Other 05-31-2023 10:04-0400Body .88 cmBenjamin E Ball Work Phone: [phone]-Ceqzr [employer] 250 DO Work Phone: 1(632) 866-643205-31-2023 10:04-0400Body mass index (BMI) [Ratio]21.7 kg/k1Ahdnoryq E Ball Work Phone: mp115-4577CV-Nyxlq [employer] 250 DO Work Phone: 1(539) 604-221305-31-2023 10:04-0400Body surface area Derived from formula1.94 t4Ghdmojcl E Ball Work Phone: [phone]-Oiygx [employer] 250 DO Work Phone: 1(495) 735-379905-31-2023 10:04-0400Body ihntwm69.58 kgBenjamin E Ball Work Phone: [phone]-Ycsut [employer] 250 DO Work Phone: 1(408) 292-945505-31-2023 10:04-0400Diastolic blood rkcakuov31 mm[Hg] Eusebio E Ball Work Phone: [phone]-Ljvnj [place] [employer] 250 DO Work Phone: 1(828) 300-720705-31-2023 10:04-0400Heart rate60 /minBenjamin E Ball Work Phone: mp318-8495PF-Arxjf [facility] DO Work Phone: 1(720) 802-223905-31-2023 10:04-0400Systolic blood rozowsyd555 mm[Hg] Eusebio E Ball Work Phone: mp443-7451GZ-Ylqxy [facility] DO Work Phone: 1(416) 436-972005-24-2023 16:00-0400Body kstjqmycvow62.9 [degF]DO Eusebio Ball Work Phone: [phone])166[facility]89[facility]05-24-2023 16:00-0400 Diastolic blood vuchsnkl93 mm[Hg]DO Eusebio Ball Work Phone: 1(675)[address]05-24-2023 16:00-0400 Heart rate71 /minDO Eusebio Ball Work Phone: 1(806)23[address]05-24-2023 16:00-0400 Respiratory rate18 /minDO Eusebio Ball Work Phone: 1(630)[address]05-24-2023 16:00-0400 SaO2% (BldA) [Mass fraction]97 %DO Eusebio Ball Work Phone: [phone](221)[address]05-24-2023 16:00-0400 Systolic blood umckblyf940 mm[Hg]DO Eusebio Ball Work Phone: 1(343)085[facility]81[facility]05-24-2023 15:38-0400 Body .42 cmDO Eusebio Ball Work Phone: 1(430)940[facility]91[facility]05-24-2023 02:36-0400 Body .6 kgDO Eusebio Ball Work Phone: 1([phone])[phone]05-09-2023 11:40-0400 Body .42 cmDO Mickey Gonzalezpa Work Phone: [facility]05-09-2023 11:40-0400 Body jabojbaenzo37 [degF]DO Mickey Tupa Work Phone: [facility]05-09-2023 11:40-0400 Body .5 kgDO Mickey Tupa Work Phone: [facility]05-09-2023 11:40-0400 Diastolic blood oxcptfkr33 mm[Hg]DO Mickey Tupa Work Phone: [facility]05-09-2023 11:40-0400 Heart rate73 /minDO Mickey Tupa Work Phone: [facility]05-09-2023 11:40-0400 Respiratory rate20 /minDO Mickey Tupa Work Phone: [facility]05-09-2023 11:40-0400 SaO2% (BldA) [Mass fraction]100 %DO Mickey Tupa Work Phone: [address] [place], [place] 2414105-09-2023 11:40-0400 Systolic blood mm[Hg]DO Mickey Tupa Work Phone: [phone]05-02-2023 11:30-0400 Diastolic blood rkzlnnsi59 mm[Hg]DO Mickey Tupa Work Phone: [facility]05-02-2023 11:30-0400 Heart rate63 /minDO Mickey Tupa Work Phone: [facility]05-02-2023 11:30-0400 Respiratory rate16 /minDO Mickey Tupa Work Phone: [phone]05-02-2023 11:30-0400 SaO2% (BldA) [Mass fraction]97 %DO Mickey Tupa Work Phone: [facility]05-02-2023 11:30-0400 Systolic blood ahcsgfvv851 mm[Hg]DO Mickey Tupa Work Phone: [facility]05-02-2023 10:45-0400 Inhaled oxygen flow rate8 L/minDO Mickey Tupa Work Phone: 1([phone])547-[address] [place], [place] 9470905-02-2023 08:12-0400 Body rgslvo92.2 kgDO Mickey Gonzalezpa Work Phone: 1(004)658-[address] [place], [place] 9470905-02-2023 07:40-0400 Body lrirwh927.42 cmDO Mickey Tupa Work Phone: 1(442)239-[address] [place], [place] 9470905-02-2023 07:40-0400 Body pusidgjfepc09 [degF]DO Mickey Gonzalezpa Work Phone: 1(498)048-[address] [place], [place] 9470904-25-2023 09:50-0400 Diastolic blood uibjriph32 mm[Hg]DO Mickey Tupa Work Phone: 1(835)090-[address] [place], [place] 9470904-25-2023 09:50-0400 Heart rate62 /minDJhoana Gr Work Phone: 1(539)779-[address] [place], [place] 9470904-25-2023 09:50-0400 Respiratory rate16 /minDO Mickey Gr Work Phone: 1(069)987-[address] [place], [place] 9470904-25-2023 09:50-0400 SaO2% (BldA) [Mass fraction]100 %DO Mickey Gr Work Phone: 6(097)556-[address] [place], [place] 9470904-25-2023 09:50-0400 Systolic blood tcwkunja387 mm[Hg]DO Mickey Gr Work Phone: 1(638)882-[address] [place], [place] 9470904-25-2023 07:46-0400 Body pvucuk029.42 cmDO Mickey Gonzalezpa Work Phone: 1([phone])647-[address] [place], [place] 9470904-25-2023 07:46-0400 Body .84 kgDO Mickey Gonzalezpa Work Phone: 8(055)422-[address] [place], [place] 9470904-20-2023 15:20-0400 Body aqwjoh046.42 cmAbdul Joyce Other [place] [employer] Other 04-20-2023 15:20-0400Body mass index (BMI) [Ratio] 21.74 kg/m6Sfecu Joyce Other [facility] [employer] Other 04-20-2023 15:20-0400Body kkufftsxjmo29.3 [degF]Angel Joyce Other [place] [employer] Other 04-20-2023 15:20-0400Body spaceo00.75 kgAbdul Joyce Other [place] [employer] Other 04-20-2023 15:20-0400Diastolic blood mm[Hg] Angel Joyce Other [place] [employer] Other 04-20-2023 15:20-0400Respiratory rate16 /minAbdul Joyce Other [place] [employer] Other 04-20-2023 15:20-3738XnF1% (BldA) [Mass fraction]96 % Angel Joyce Other [place] [employer] Other 04-20-2023 15:20-0400Systolic blood vpzisyrh379 mm[Hg] Angel Joyce Other [place] [employer] Other 04-18-2023 08:30-0400Diastolic blood cdyyihkz24 mm[Hg] DO Eusebio Ball Work Phone: [facility]04-18-2023 08:30-0400 Heart rate66 /minDO Eusebio Ball Work Phone: [facility]04-18-2023 08:30-0400 Respiratory rate14 /minDO Eusebio Ball Work Phone: [facility]04-18-2023 08:30-0400 SaO2% (BldA) [Mass fraction]97 %DO Eusebio Ball Work Phone: [facility] [facility]04[facility] 08:30-0400 Systolic blood mm[Hg]DO Eusebio [employer] Work Phone: [facility]04-18-2023 07:01-0400 Body iazidb299.88 cmDO Eusebio [employer] Work Phone: [facility]04-18-2023 07:01-0400 Body jmzcop59.11 kgDO Eusebio [employer] Work Phone: [facility]04-12-2023 11:30-0400 Body jakmoe941.42 cmZina Childs Other [employer] Other 04-12-2023 11:30-0400Body mass index (BMI) [Ratio] 22.16 kg/y4OtfdyqZina Childs Other [employer] Other 04-12-2023 11:30-0400Body ztjfucpvjrs29.8 [degF]Zina Childs Other [employer] Other 04-12-2023 11:30-0400Body tyqtha46.2 kgZina Childs Other [employer] Other 04-12-2023 11:30-0400Diastolic blood uzeaoude21 mm[Hg] Zina Childs Other [employer] Other 04-12-2023 11:30-7645AkB9% (BldA) [Mass fraction]97 % Zina Childs Other [employer] Other 04-12-2023 11:30-0400Systolic blood hbiflgyd337 mm[Hg] Zina Childs Other [phone] [employer] Other 04-03-2023 10:20-0400Body aqfwdc841.42 cmAbdul Joyce Other [place] [employer] Other 04-03-2023 10:20-0400Body mass index (BMI) [Ratio] 22.22 kg/g7Iukfn Joyce Other [employer] Other 04-03-2023 10:20-0400Body exjsuyfclgw51.6 [degF]Angel Joyce Other [place] [employer] Other 04-03-2023 10:20-0400Body .39 kgAbdul Joyce Other [facility] [employer] Other 04-03-2023 10:20-0400Diastolic blood wqrkybtt24 mm[Hg] Angel Joyce Other [employer] Other 04-03-2023 10:20-0400Respiratory rate6 /minAbdul Joyce Other [place] [employer] Other 04-03-2023 10:20-4801WaT4% (BldA) [Mass fraction]99 % Angel Joyce Other [employer] Other 04-03-2023 10:20-0400Systolic blood eaxmzmuu789 mm[Hg] Angel Joyce Other [employer] Other 03-27-2023 09:12-0400Body lvzovv388.88 cmDO Eusebio Ball Work Phone: [facility]03-27-2023 09:12-0400 Body edyptmdheun81.1 [degF]DO Eusebio Ball Work Phone: [phone]([phone]03-27-2023 09:12-0400 Body uvhkdc71 kgDO Eusebio Ball Work Phone: 1(764)219-[address] [place], [place] 6468103-27-2023 09:12-0400 Diastolic blood fserhpqh37 mm[Hg]DO Eusebio Ball Work Phone: 1(280)630-[address] [place], [place] 6468103-27-2023 09:12-0400 Heart rate67 /minDO Eusebio Ball Work Phone: 1(247)338-[address] [place], [place] 6468103-27-2023 09:12-0400 Respiratory rate16 /minDO Eusebio Ball Work Phone: 1(101)250-[address] [place], [place] 6468103-27-2023 09:12-0400 SaO2% (BldA) [Mass fraction]100 %DO Eusebio Ball Work Phone: 1(650)988-[address] [place], [place] 6468103-27-2023 09:12-0400 Systolic blood mm[Hg]DO Eusebio Ball Work Phone: 1(297)[phone]03-02-2023 10:22-0500 Body kaajbw990.42 cmBenjamin E Ball Work Phone: 1(376) [phone]-Mfvtd [place] [employer] 250 DO Work Phone: 1(918) 763-953903-02-2023 10:22-0500Body mass index (BMI) [Ratio] 22.17 kg/k0Njxmnsye E Ball Work Phone: 1(862) [phone]-Qkykh [place] [employer] 250 DO Work Phone: 1(341) 881-893003-02-2023 10:22-0500Body surface area Derived from formula2 v5Bubeqvqj E Ball Work Phone: 1(357) [phone]-Xtadp [place] [employer] 250 DO Work Phone: 1(826) 472-648203-02-2023 10:22-0500Body .2 kgBenjamin E Ball Work Phone: 1(278) [phone]-Wjlhy [place] [employer] 250 DO Work Phone: 1(896) 984-510503-02-2023 10:22-0500Diastolic blood vlbtcloq95 mm[Hg] Eusebio Rodríguez [employer] Work Phone: [phone]-Cwxfp [place] [employer] 250 DO Work Phone: 1(968) 132-665303-02-2023 10:22-0500Heart rate76 /minBenjamin E Ball Work Phone: [phone]-Ysjlv [place] [employer] 250 DO Work Phone: 1(619) 589-174603-02-2023 10:22-0500Systolic blood mm[Hg] Eusebio Rodríguez [employer] Work Phone: mp360-6153WH-Aixsw [place] [employer] 250 DO Work Phone: 1(306) 292-975502-28-2023 09:40-0500Body ymnecb206.42 cmAbdul Joyce Other [employer] Other 02-28-2023 09:40-0500Body mass index (BMI) [Ratio] 22.19 kg/u5Qumsn Joyce Other [employer] Other 02-28-2023 09:40-0500Body hlydzrtjqtg63.4 [degF]Angel Joyce Other [employer] Other 02-28-2023 09:40-0500Body wackmf19.3 kgAbdul Joyce Other [employer] Other 02-28-2023 09:40-0500Diastolic blood esnkencd65 mm[Hg] Angel Joyce Other [employer] Other 02-28-2023 09:40-0500Respiratory rate16 /minAbdul Joyce Other [employer] Other 02-28-2023 09:40-0162YwZ2% (BldA) [Mass fraction]99 % Angel Joyce Other [employer] Other 02-28-2023 09:40-0500Systolic blood jrvrenxd827 mm[Hg] Angel Joyce Other [facility] [employer] Other 02-22-2023 10:30-0500Body jynurq146.42 cmZina Emelyhomer Other [facility] [employer] Other 02-22-2023 10:30-0500Body mass index (BMI) [Ratio] 21.77 kg/j9ZaslpzZina Childs Other [facility] [employer] Other 02-22-2023 10:30-0500Body hprwuulzubn94.8 [degF]Zina Childs Other [employer] Other 02-22-2023 10:30-0500Body pzfjyp63.84 kgLextadeo Hanhomer Other [employer] Other 02-22-2023 10:30-0500Diastolic blood mvcicgrg96 mm[Hg] Zina Childs Other [employer] Other 02-22-2023 10:30-6044BrF7% (BldA) [Mass fraction]98 % Zina Childs Other [employer] Other 02-22-2023 10:30-0500Systolic blood xjislrok972 mm[Hg] Zina Childs Other [employer] Other 02-20-2023 10:15-0500Body jgpixb309.42 cmBenjamin Ball Other [facility] [employer] Other 02-20-2023 10:15-0500Body mass index (BMI) [Ratio] 21.85 kg/r8Snzjmova Ball Other [facility] [employer] Other 02-20-2023 10:15-0500Body jykdux32.12 kgBenjamin Ball Other [facility] [employer] Other 02-20-2023 10:15-0500Diastolic blood jrftjojl21 mm[Hg] Eusebio Ball Other [facility] [employer] Other 02-20-2023 10:15-0500Respiratory rate12 /minBenjamin Ball Other [employer] Other 02-20-2023 10:15-0500Systolic blood owwlhjfg820 mm[Hg] Eusebio Ball Other [facility] [employer] Other 02-15-2023 11:46-0500Body .9 [degF]DO Zeus Bradley Work Phone: [facility]02-15-2023 11:46-0500 Diastolic blood exftbrob61 mm[Hg]DO Zeus Graceister Work Phone: [facility]02-15-2023 11:46-0500 Heart rate77 /TeresaO Zeus Graceister Work Phone: [facility]02-15-2023 11:46-0500 Respiratory rate16 /TeresaO Zeus Graceister Work Phone: [facility]02-15-2023 11:46-0500 SaO2% (BldA) [Mass fraction]98 %DO Zeus Graceister Work Phone: [facility]02-15-2023 11:46-0500 Systolic blood wmmeozfd839 mm[Hg]DO Zeus Keister Work Phone: 1(080)[phone]02-15-2023 09:41-0500 60 1Benjamin E Ball Work Phone: 1(657) [phone]-Htwda [place] [facility] 250 DO Work Phone: Comment on above:[id number] 03:52-0500Body sisjsm807.42 cmDO Zeus Keister Work Phone: 1(918)465-64[facility]02-15-2023 03:52-0500 Body ykjcft77.2 kgDO Zeus Keister Work Phone: 1(752)077-[address] [place], [place] 9470902-15-2023 02:26-0500 Heart rate70 /minDO Zeus Keister Work Phone: 1(133)481-[address] [place], [place] 9470902-15-2023 02:26-0500 Respiratory rate14 /minDO Zeus Keister Work Phone: 1(597)[phone]02-15-2023 02:26-0500 SaO2% (BldA) [Mass fraction]98 %DO Zeus Keister Work Phone: [phone](207)851-50[facility]02-15-2023 01:52-0500 Diastolic blood zlnidbpc73 mm[Hg]DO Zeus Keister Work Phone: [phone](732)[phone]02-15-2023 01:52-0500 Systolic blood ylfwwzqg660 mm[Hg]DO Zeus Keister Work Phone: [phone](148)361-83[facility]02-14-2023 23:27-0500 Body bawpsv746.42 cmDO Zeus Keister Work Phone: [phone](422)[phone]02-14-2023 23:27-0500 Body ylmanwvonql66.8 [degF]DO Zeus Keister Work Phone: [facility]02-14-2023 23:27-0500 Body xkfear14.1 kgDO Zeus Bradley Work Phone: [facility]01-30-2023 13:27-0500 Diastolic blood mm[Hg]DO Eusebio Ball Work Phone: 1(729)741-32[facility]01-30-2023 13:27-0500 Heart rate59 /minDO Eusebio Ball Work Phone: 1(320)825-[address] [place], [place] 6468101-30-2023 13:27-0500 Respiratory rate16 /minDO Eusebio Ball Work Phone: 1(237)268-[address] [place], [place] 6468101-30-2023 13:27-0500 SaO2% (BldA) [Mass fraction]99 %DO Eusebio Ball Work Phone: 1(244)254[facility]33[facility]01-30-2023 13:27-0500 Systolic blood yrhlxguo256 mm[Hg]DO Eusebio Ball Work Phone: 1(321)[address] [place], [place] 0602901-30-2023 11:51-0500 Inhaled oxygen flow rate8 L/minDO Eusebio Ball Work Phone: 1(285)[address] [place], [place] 0602901-30-2023 10:14-0500 Body doydsz477.88 cmDO Eusebio Olivares Work Phone: 1(696)[address]01-30-2023 10:14-0500 Body mass index (BMI) [Ratio]22.4 kg/m2DO Eusebio Ball Work Phone: 1(371)[address]01-30-2023 10:14-0500 Body cwrhew65 kgDO Eusebio Ball Work Phone: 1(725)576-[address] [place], [place] 6468101-30-2023 08:35-0500 Body vdyurzvimdl22.9 [degF]DO Eusebio Ball Work Phone: 1(270)040-[address] [place], [place] 6468101-23-2023 14:28-0500 Body ueyrsxxkbrj86.8 [degF]DO Eusebio Ball Work Phone: 1(890)334-[address] [place], [place] 6468101-23-2023 14:28-0500 Body dpopbb48.9 kgDO Eusebio Ball Work Phone: [facility]01-23-2023 14:28-0500 Diastolic blood powgriyb27 mm[Hg]DO Eusebio Ball Work Phone: [facility]01-23-2023 14:28-0500 Heart rate74 /minDO Eusebio Ball Work Phone: [facility]01-23-2023 14:28-0500 Respiratory rate16 /minDO Eusebio Ball Work Phone: [facility]01-23-2023 14:28-0500 SaO2% (BldA) [Mass fraction]99 %DO Eusebio Ball Work Phone: [facility]01-23-2023 14:28-0500 Systolic blood qdnvdtoo575 mm[Hg]DO Eusebio Ball Work Phone: [facility]01-18-2023 11:30-0500 Body xtlmim141.42 cmMaike Mendoza Other [employer] Other 01-18-2023 11:30-0500Body mass index (BMI) [Ratio] 21.77 kg/r9FgjtppkRomain Mendoza Other [employer] Other 01-18-2023 11:30-0500Body nbmriofnley52.9 [degF] Romain Mendoza Other [employer] Other 01-18-2023 11:30-0500Body .84 kgMattmolly Mendoza Other [facility] [employer] Other 01-18-2023 11:30-0500Diastolic blood wuukgqvf65 mm[Hg] Romain Mendoza Other [facility] [employer] Other 01-18-2023 11:30-7079FsX8% (BldA) [Mass fraction]97 % Romain Florezkaley Other [facility] [employer] Other 01-18-2023 11:30-0500Systolic blood ugwnehhx691 mm[Hg] Romain Florezkaley Other [employer] Other 01-12-2023 10:40-0500Body decyqu687.42 cmAbdul Joyce Other [employer] Other 01-12-2023 10:40-0500Body mass index (BMI) [Ratio] 21.32 kg/p2Ndqpe Joyce Other [employer] Other 01-12-2023 10:40-0500Body sngdltyzqxi71.4 [degF]Angel Joyce Other [employer] Other 01-12-2023 10:40-0500Body cdhvra11.3 kgAbdul Joyce Other [employer] Other 01-12-2023 10:40-0500Diastolic blood sveuoxuh98 mm[Hg] Angel Joyce Other [employer] Other 01-12-2023 10:40-0500Respiratory rate16 /minAbdul Joyce Other [employer] Other 01-12-2023 10:40-3948MxL4% (BldA) [Mass fraction]98 % Angel Joyce Other [employer] Other 01-12-2023 10:40-0500Systolic blood dhyqigxo392 mm[Hg] Angel Joyce Other [employer] Other [id number] 10:19-0500Blood Pressure LocationPatrick TRUONG [facility]01-11-2023 10:19-0500Diastolic blood fkvuhipq60 mm[Hg]Mickey SHERIFF [facility]01-11-2023 10:19-0500Heart rate76 /minMickey SHERIFF [facility]01-11-2023 10:19-0500Systolic blood qqctzgxe728 mm[Hg]Mickey SHERIFF [facility] [place] 263222-26-2022 11:19-0500Diastolic blood myoyqwtj30 mm[Hg]DO Eusebio Ball Work Phone: [phone]12-26-2022 11:19-0500 Heart rate68 /minDO Eusbeio Ball Work Phone: 3(959)940-60[facility]12-26-2022 11:19-0500 Respiratory rate16 /minDO Eusebio Ball Work Phone: [phone])700-78[facility]12-26-2022 11:19-0500 SaO2% (BldA) [Mass fraction]97 %DO Eusebio Ball Work Phone: 1(874)805-66[facility]12-26-2022 11:19-0500 Systolic blood xstxdxip559 mm[Hg]DO Eusebio Ball Work Phone: 3(675)806-37[facility]12-26-2022 08:00-0500 Body faviyvsitay20.4 [degF]DO Eusebio Ball Work Phone: 5(677)270-85[facility]12-26-2022 03:30-0500 Body jrvzwi605.88 cmDO Eusebio Ball Work Phone: 9(733)467-32[facility]12-26-2022 03:30-0500 Body clmzeo36 kgDO Eusebio Ball Work Phone: 1(821)585-[address] [place], [place] 6468112-26-2022 02:20-0500 Body qjxmbyzscnk95.4 [degF]DO Eusebio Ball Work Phone: 1(496)034-50[facility]12-26-2022 02:20-0500 Diastolic blood ttotqniv70 mm[Hg]DO Eusebio Ball Work Phone: 1(514)091-[address] [place], [place] 6468112-26-2022 02:20-0500 Heart rate76 /minDO Eusebio Ball Work Phone: 1(442)340-[address] [place], [place] 6468112-26-2022 02:20-0500 Respiratory rate16 /minDO Eusebio Ball Work Phone: 1(093)[address]12-26-2022 02:20-0500 SaO2% (BldA) [Mass fraction]98 %DO Eusebio Ball Work Phone: 1(244)275-[address] [place], [place] 6468112-26-2022 02:20-0500 Systolic blood mm[Hg]DO Eusebio Ball Work Phone: 1(847)[address]12-25-2022 23:06-0500 Body hfcirw204.88 cmDO Eusebio Ball Work Phone: 1(031)304[facility]98[facility]12-25-2022 23:06-0500 Body gkhwme56 kgDO Eusebio Ball Work Phone: 1(968)713-[address] [place], [place] 6468112-01-2022 15:15-0500 60 1Benjamin E Ball Work Phone: 1(811) [phone]-Pnqys [place] [facility] 250 DO Work Phone: Comment on above:[id number] 21:35-0500Body cwwfyibnssw47 [degF]DO Eusebio Ball Work Phone: 1(804)326-78[facility]11-21-2022 21:35-0500 Diastolic blood ieybxiyn13 mm[Hg]DO Eusebio Ball Work Phone: 1(930)569-77[facility]11-21-2022 21:35-0500 Heart rate65 /minDO Eusebio Ball Work Phone: [facility]11-21-2022 21:35-0500 Respiratory rate18 /minDO Eusebio Ball Work Phone: 1(430)811-63[facility]11-21-2022 21:35-0500 SaO2% (BldA) [Mass fraction]100 %DO Eusebio Ball Work Phone: 1(401)838-67[facility]11-21-2022 21:35-0500 Systolic blood uztmvsmh078 mm[Hg]DO Eusebio Ball Work Phone: 1(941)832-63[facility]11-21-2022 16:31-0500 Body .88 cmDO Eusebio Ball Work Phone: 1(322)361-18[facility]11-21-2022 16:31-0500 Body .2 kgDO Eusebio Ball Work Phone: 1(913)903-[address] [place], [place] 6468111-17-2022 11:35-0500 Body capikr243.42 cmBenjamin E Ball Work Phone: 1(665) [phone]-Oxnvl [place] [employer] 250 DO Work Phone: 1(762) 629-916111-17-2022 11:35-0500Body mass index (BMI) [Ratio] 21.11 kg/e1Ruvxmycy E Ball Work Phone: 1(661) [phone]-Zgbna [place] [employer] 250 DO Work Phone: 1(987) 134-830311-17-2022 11:35-0500Body surface area Derived from formula1.96 e9Kqbunpcv E Ball Work Phone: 1(571) [phone]-Trmlk [place] [facility] 250 DO Work Phone: 1(715) 474-814511-17-2022 11:35-0500Body wiobeh38.58 kgBenjamin E Ball Work Phone: 1(773) [phone]-Addks [place] [facility] 250 DO Work Phone: 1(167) 584-903111-17-2022 11:35-0500Diastolic blood coobcdde25 mm[Hg] Eusebio E Ball Work Phone: 1(929) [phone]-Ogwjx [place] [employer] 250 DO Work Phone: 1(927) 193-616711-17-2022 11:35-0500Heart rate72 /minBenjamin E Ball Work Phone: mp755-2300VR-Sjpof [place] [employer] 250 DO Work Phone: 1(682) 106-882711-17-2022 11:35-0500Systolic blood mm[Hg] Eusebio E Ball Work Phone: [phone]-Iinck [place] [employer] 250 DO Work Phone: 1(218) 145-242311-16-2022 11:00-0500Body hvydyf963.42 cmAbdul Joyce Other [employer] Other 11-16-2022 11:00-0500Body mass index (BMI) [Ratio] 20.76 kg/q4Rlyvo Joyce Other [employer] Other 11-16-2022 11:00-0500Body egenaasygsx45.4 [degF]Angel Joyce Other [employer] Other 11-16-2022 11:00-0500Body zcdbyh27.4 kgAbdul Joyce Other [employer] Other 11-16-2022 11:00-0500Diastolic blood mm[Hg] Angel Joyce Other [employer] Other 11-16-2022 11:00-0500Respiratory rate16 /minAbdul Joyce Other [employer] Other 11-16-2022 11:00-0154FoZ3% (BldA) [Mass fraction]98 % Angel Joyce Other [employer] Other [id number] 11:00-0500Systolic blood harbbkpi712 mm[Hg] Angel Cook Other [employer] Other [id number] 11:10-0400Diastolic blood ikcvzwyy19 mm[Hg] DO Eusebio Ball Work Phone: 1(052)[phone]10-26-2022 11:10-0400 Heart rate79 /minDO Eusebio Ball Work Phone: 1(059)804-[address] [place], [place] 6468110-26-2022 11:10-0400 Respiratory rate18 /minDO Eusebio Ball Work Phone: 1(967)487-[address] [place], [place] 6468110-26-2022 11:10-0400 SaO2% (BldA) [Mass fraction]99 %DO Eusebio Ball Work Phone: 1(570)[address]10-26-2022 11:10-0400 Systolic blood mm[Hg]DO Eusebio Ball Work Phone: 1(433)[address]10-26-2022 07:37-0400 Body nskavz448.88 cmDO Eusebio Ball Work Phone: 1(526)040-[address] [place], [place] 6468110-26-2022 07:37-0400 Body .5 [degF]DO Eusebio Ball Work Phone: 1(236)674-[address] [place], [place] 6468110-26-2022 07:37-0400 Body .57 kgDO Eusebio Ball Work Phone: 1(473)[address]10-16-2022 20:08-0400 Diastolic blood hijlnhfe68 mm[Hg]DO Eusebio Ball Work Phone: 1(154)334-[address] [place], [place] 6468110-16-2022 20:08-0400 Heart rate68 /minDO Eusebio Ball Work Phone: 1(924)415-48[facility]10-16-2022 20:08-0400 Respiratory rate18 /minDO Eusebio Ball Work Phone: 1(067)671-[address] [place], [place] 6468110-16-2022 20:08-0400 SaO2% (BldA) [Mass fraction]99 %DO Eusebio Ball Work Phone: 1(246)[facility] [place], [place] 6468110-16-2022 20:08-0400 Systolic blood tqtkyvmf032 mm[Hg]DO Eusebio Ball Work Phone: 1(429)[address] [place], [place] 0602910-16-2022 15:02-0400 Body efpcvf012.88 cmDO Eusebio Ball Work Phone: 1(465)[address] [place], [place] 0602910-16-2022 15:02-0400 Body rhusetljnrj06 [degF]DO Eusebio Ball Work Phone: 1(708)[address] [place], [place] 0602910-16-2022 15:02-0400 Body cshyub52.11 kgDO Eusebio Ball Work Phone: 1(742)[address] [place], [place] 0602910-11-2022 11:01-0400 Body pktkfoqfrvg08.5 [degF]DO Eusebio Ball Work Phone: 1(278)[address] [place], [place] 0602910-11-2022 11:01-0400 Body dfeysh02.37 kgDO Eusebio Ball Work Phone: 1(118)[address] [place], [place] 0602910-11-2022 11:01-0400 Diastolic blood ktczoqvp41 mm[Hg]DO Eusebio Ball Work Phone: 1(765)[address] [place], [place] 0602910-11-2022 11:01-0400 Heart rate80 /minDO Eusebio Ball Work Phone: 1(918)[address] [place], [place] 0602910-11-2022 11:01-0400 Respiratory rate16 /minDO Eusebio Ball Work Phone: 1(604)[facility] [place], [place] 6468110-11-2022 11:01-0400 SaO2% (BldA) [Mass fraction]98 %DO Eusebio Ball Work Phone: 1(288)[address] [place], [place] 0602910-11-2022 11:01-0400 Systolic blood nwxgewmu076 mm[Hg]DO Eusebio Ball Work Phone: 1(778)[address] [place], [place] 0602910-05-2022 11:40-0400 Body dedmng405.42 cmAbdul Joyce Other [facility] [employer] Other 10-05-2022 11:40-0400Body mass index (BMI) [Ratio]22 kg/j2Jrlvo Joyce Other [employer] Other 10-05-2022 11:40-0400Body essuunsyowi66.2 [degF]Angel Joyce Other [employer] Other 10-05-2022 11:40-0400Body qtvqon28.66 kgAbdul Joyce Other [employer] Other 10-05-2022 11:40-0400Diastolic blood xbdvdogf61 mm[Hg] Angel Joyce Other [employer] Other 10-05-2022 11:40-0400Respiratory rate16 /minAbdul Joyce Other [employer] Other 10-05-2022 11:40-1224ExU5% (BldA) [Mass fraction]98 % Angel Joyce Other [employer] Other 10-05-2022 11:40-0400Systolic blood rypdvyzk888 mm[Hg] Angel Joyce Other [employer] Other 10-04-2022 01:36-0400Body ukcnxrbavra11 [degF]DO Eusebio Ball Work Phone: [facility]10-04-2022 01:36-0400 Diastolic blood qemguavi44 mm[Hg]DO Eusebio Ball Work Phone: [facility]10-04-2022 01:36-0400 Heart rate67 /minDO Eusebio Ball Work Phone: 1(398)[address]10-04-2022 01:36-0400 Respiratory rate18 /minDO Eusebio Ball Work Phone: 1(989)[address] [place], [place] 0602910-04-2022 01:36-0400 SaO2% (BldA) [Mass fraction]96 %DO Eusebio Ball Work Phone: 1(789)[address] [place], [place] 0602910-04-2022 01:36-0400 Systolic blood odffxtxi173 mm[Hg]DO Eusebio Ball Work Phone: 1(828)[address] [place], [place] 0602910-03-2022 22:03-0400 Body jdavae441.88 cmDO Eusebio Ball Work Phone: 1(944)[address] [place], [place] 0602910-03-2022 22:03-0400 Body iedhkm63 kgDO Eusebio Ball Work Phone: 1(346)[address] [place], [place] 0602909-30-2022 11:40-0400 Diastolic blood yzezrlsw57 mm[Hg]DO Eusebio Ball Work Phone: 1(214)[address] [place], [place] 0602909-30-2022 11:40-0400 Heart rate80 /minDO Eusebio Ball Work Phone: 1(120)[address] [place], [place] 0602909-30-2022 11:40-0400 Respiratory rate16 /minDO Eusebio Ball Work Phone: 1(710)[address] [place], [place] 0602909-30-2022 11:40-0400 SaO2% (BldA) [Mass fraction]99 %DO Eusebio Ball Work Phone: 1(444)[address] [place], [place] 0602909-30-2022 11:40-0400 Systolic blood aynbrnzg808 mm[Hg]DO Eusebio Ball Work Phone: 1(249)[address] [place], [place] 0602909-30-2022 08:57-0400 Body vakcvi283.88 cmDO Eusebio Ball Work Phone: 1(963)[address] [place], [place] 0602909-30-2022 08:57-0400 Body .29 kgDO Eusebio Ball Work Phone: 1(666)[address] [place], [place] 0602909-21-2022 13:45-0400 Body nmppqppkvte70 [degF]DO Eusebio Ball Work Phone: 1(050)348-87[facility]09-21-2022 13:45-0400 Body bhijma63.43 kgDO Eusebio Ball Work Phone: [phone]09-21-2022 13:45-0400 Diastolic blood kyekywun50 mm[Hg]DO Eusebio Ball Work Phone: [phone]09-21-2022 13:45-0400 Heart rate73 /minDO Eusebio [employer] Work Phone: [phone] [place], [place] [address]-21-2022 13:45-0400 Respiratory rate20 /minDO Eusebio Ball Work Phone: [phone]09-21-2022 13:45-0400 SaO2% (BldA) [Mass fraction]99 %DO Eusebio Ball Work Phone: [phone]09-21-2022 13:45-0400 Systolic blood lxvqixdt244 mm[Hg]DO Eusebio Ball Work Phone: [phone]09-21-2022 08:47-0400 Body lmnlse684.88 cmDO Eusebio [employer] Work Phone: [phone]09-02-2022 12:00-0400 Body caaomv502.42 cmAbdul Joyce Other [employer] Other 09-02-2022 12:00-0400Body mass index (BMI) [Ratio] 21.98 kg/v4Ikjwf Joyce Other [employer] Other 09-02-2022 12:00-0400Body jjbyyi99.57 kgAbdul Joyce Other [facility] [employer] Other 09-02-2022 12:00-0400Diastolic blood eddctykg64 mm[Hg] Angel Joyce Other [facility] [employer] Other 09-02-2022 12:00-0400Respiratory rate16 /minAbdul Joyce Other [facility] [employer] Other 09-02-2022 12:00-5336ZoF8% (BldA) [Mass fraction]97 % Angel Joyce Other [facility] [employer] Other 09-02-2022 12:00-0400Systolic blood hjvxywns072 mm[Hg] Angel Joyce Other [facility] [employer] Other 08-23-2022 02:06-0400Diastolic blood mm[Hg] DO [employer] Work Phone: [facility]08-23-2022 02:06-0400 Heart rate71 /minDO Eusebio [employer] Work Phone: [facility]08-23-2022 02:06-0400 Respiratory rate18 /minDO Eusebio Ball Work Phone: [facility]08-23-2022 02:06-0400 SaO2% (BldA) [Mass fraction]99 %DO Eusebio [employer] Work Phone: [facility]08-23-2022 02:06-0400 Systolic blood foeturez186 mm[Hg]DO Eusebio Ball Work Phone: [facility]08-22-2022 23:48-0400 Body bzpmpixuamk54.2 [degF]DO Eusebio Ball Work Phone: [facility]08-22-2022 21:52-0400 Body hyuetw679.88 cmDO [employer] Work Phone: [facility]08-22-2022 21:52-0400 Body vnesei13.11 kgDO Eusebio [employer] Work Phone: [facility]08-11-2022 16:20-0400 Body fenibc297.42 cmAbdul Joyce Other [place] [employer] Other [id number] 16:20-0400Body mass index (BMI) [Ratio]23.4 kg/r7Afkdh Joyce Other [employer] Other [id number] 16:20-0400Body gtkmvustfnb04.4 [degF]Angel Joyce Other [employer] Other [id number] 16:20-0400Body ukqqlw28.47 kgAbdul Joyce Other [facility] Hospital[facility] (by isePankur) Other [id number] 16:20-0400Diastolic blood jhvuyrxl55 mm[Hg] Angel Joyce Other [employer] Other 08-11-2022 16:20-0400Respiratory rate18 /minAbdul Joyce Other [place] [employer] Other [id number] 16:20-1496UwM3% (BldA) [Mass fraction]98 % Angel Joyce Other [employer] Other 08-11-2022 16:20-0400Systolic blood kdrngmeo851 mm[Hg] Angel Joyce Other [employer] Other 05-03-2022 10:40-0400Body .42 cmAbdul Joyce Other [employer] Other 05-03-2022 10:40-0400Body mass index (BMI) [Ratio] 22.32 kg/u7Nnxwd Joyce Other [employer] Other 05-03-2022 10:40-0400Body woyknniwyix79.6 [degF]Angel Joyce Other [employer] Other 05-03-2022 10:40-0400Body .75 kgAbdul Joyce Other [employer] Other 05-03-2022 10:40-0400Diastolic blood sxmoatvq80 mm[Hg] Angel Joyce Other [employer] Other 05-03-2022 10:40-0400Respiratory rate18 /minAbdul Joyce Other [place] [employer] Other 05-03-2022 10:40-2061LuG9% (BldA) [Mass fraction]99 % Angel Joyce Other [employer] Other 05-03-2022 10:40-0400Systolic blood ecxpzejc326 mm[Hg] Angel Joyce Other [employer] Other 04-21-2022 09:25-0400Body ygnuvl692.42 cmDO Eusebio Ball Work Phone: [facility]04-21-2022 09:25-0400 Body lgsjyi27.56 kgDO Eusebio Ball Work Phone: [facility]04-08-2022 13:12-0400 Body cpwavo263.42 cmBenjajessica E Ball Work Phone: 1([phone] 460-7452664-3020UG-OgnlgLong [facility]irie [facility] 250 DO Work Phone: 1(885) [phone] 13:12-0400Body mass index (BMI) [Ratio] 23.38 kg/w0Acnhdhki E Ball Work Phone: mp335-9425VB-EhovwSt. John'S HospitalGilchrist 250 DO Work Phone: 1(521) 834-465804-08-2022 13:12-0400Body surface area Derived from formula2.04 n3Zrbynnew E Ball Work Phone: mp287-0350BK-EjoyrWadena Clinicusky [facility] DO Work Phone: 1(693) 105-426604-08-2022 13:12-0400Body uetlul26.38 kgBenjamin E Ball Work Phone: mp225-5832HE-NruldWadena Clinicusky [facility] DO Work Phone: 1(742) [phone] 13:12-0400Diastolic blood mm[Hg] Eusebio E Ball Work Phone: mp389-6379PQ-NaksfManuel [place] [address] DO Work Phone: 1(430) [phone] 13:12-0400Heart rate83 /minBenjamin E Ball Work Phone: mp839-2666DR-BrplhManuel [place] [address] DO Work Phone: 1(470) 530-987204-08-2022 13:12-0400Systolic blood akawlzxk674 mm[Hg] Eusebio E Ball Work Phone: mp521-6503UW-DeivrManuel [place] [address] DO Work Phone: 1(940) 691-878503-30-2022 00:00-823723 1Benjamin E Ball Work Phone: mp924-7720MB-SegbaMeeker Memorial Hospital 250 DO Work Phone: Comment on above:EPXFWNEI3332-06-9502 14:00-0400Body .42 cmAbdul Joyce Other [facility] [employer] Other 03-23-2022 14:00-0400Body mass index (BMI) [Ratio] 26.01 kg/r3Vuvcr Joyce Other no[employer] Other 03-23-2022 14:00-0400Body jomhdjhjojb74.4 [degF]Angel Joyce Other [employer] Other 03-23-2022 14:00-0400Body zmeuye29.45 kgAbdul Joyce Other [employer] Other 03-23-2022 14:00-0400Diastolic blood xqalykyh886 mm[Hg]Angel Joyce Other [employer] Other 03-23-2022 14:00-0400Respiratory rate18 /minAbdul Joyce Other [place] [employer] Other 03-23-2022 14:00-3663BrG2% (BldA) [Mass fraction]96 % Angel Joyce Other [employer] [employer] Other 03-23-2022 14:00-0400Systolic blood brryszbm286 mm[Hg] Angel Joyce Other [employer] [employer] Other Encounters Encounter DateEncounter TypeCare ProviderFacilityStart: 06-29-2025 End: 81-11-7792Lopkui outpatient visit 10 Joann Salvador APRN-[employer]DI[employer] POLICY SPECIALIST Work Phone: uh [facility] HealthComment on above:Essential (primary) hypertension (Primary Dx); BMI 24.0-24.9, adult; Former smoker; Vapes non-nicotine containing substanceStart: 06-29-2025 End: 23-55-9046eljqbllvsgWXDCR K [facility] AmbulatoryStart: 06-02-2025 End: 76-55-7454owktnbcwrtJJNFW R GALLOWASelect Medical [facility] - Dublintart: 06-02-2025 End: 86-72-2801Kwgrudaivw hospital visit by physicianCon[facility] 1[facility] FallsComment on above:Nonrheumatic mitral valve regurgitationStart: 06-02-2025 End: 75-80-9816Uyfhgl outpatient new 20 minutesCarmen Rowland MD Work Phone: uh [facility] MatherComment on above: Severe mitral regurgitation (Primary Dx)Start: 06-02-2025 End: 87-67-4313Jxyfac outpatient new 60 minutesGuilradha Mcdonnell MD Work Phone: [facility] MatherComment on above: Nonrheumatic mitral valve regurgitation (Primary Dx)Start: 06-02-2025 End: 19-94-2113rdabxnmywoYBPUH R EAPENBerger Hospitaltart: 05-31-2025 End: 81-13-5971dguyiogmxgBnpferk AkilFacility:[facility] Start: 23-66-2335Ckhugcdhbv and management of inpatientEmran Alejandrina Noland MD-[facility] [place] [facility] Work Phone: Start: 05-31-2025 End: 56-81-6061xsepfokwdof encounterBenjamin Ball DO Work Phone: [facility] Work Phone: Start: 05-31-2025 End: 41-94-4033Uczmbmi Akil MD-3 [place] [facility] Work Phone: Start: 05-29-2025 End: 43-94-7916Wgdxcizv Ball DO Work Phone: 1(891) 966-2862771-7557-Ziapzaujj Room Work Phone: Start: 05-29-2025 End: 52-11-2919Qgiqyxbba department patient visitBenjamin Ball DO Work Phone: [phone]-Bwvwyqxul Room Work Phone: Start: 05-27-2025 End: 22-50-4105Hnzxne outpatient visit 40 [facility] HospitalsherwinThe [facility] DO Work Phone: uh [facility] on above:ASHD (arteriosclerotic heart disease); History of VA (myocardial infarction); Status post insertion of drug eluting coronary artery stent; Nonrheumatic mitral valve regurgitation; Essential (primary) hypertension; Mixed hyperlipidemia; Type 2 diabetes mellitus with chronic kidney disease on chronic dialysis, with long-term current use of insulin (Multi); ESRD (end stage renal disease) on dialysis (Multi); BMI 23.0-23.9, adult; ACEI/ARB contraindicated; Current every day smoker; Vapes nicotine containing substance; Essential hypertension, benignStart: 05-27-2025 End: 50-91-2570tsithxkntcKHNUQAGSouth [facility] Medical Center AmbulatoryStart: 48-23-4303Qyea Bakhous MD-[facility] Work Phone: Start: 05-06-2025 End: 82-69-4009uffviviiraMwluejgb BallFacility:[facility] Start: 05-06-2025 End: 30-32-2948Bilsfgxedl and management of inpatientNadeen PALMER3 [place] [facility] Work Phone: Start: 05-06-2025 End: 30-81-8046lugtlljjnjs encounterEusebio Olivares DO Work Phone: [facility] Work Phone: Start: 05-06-2025 End: 18-61-1445TvdpNadeen PALMER3 [place] [facility] Work Phone: Start: 04-22-2025 End: 54-19-6801jhxkaehjmuTxolnlkt Ball DO Work Phone: [facility] Work Phone: Start: 04-22-2025 End: 11-25-4732Xtnykwp encounter procedureEusebio Olivares DO-[facility] Work Phone: Start: 04-22-2025 End: 12-89-8460Wbqjhvax Ball DO-[facility] Work Phone: Start: 04-15-2025 End: 64-50-7028xwxjdxqerkWXEDAWJMount St. Mary Hospitaltart: 04-15-2025 End: 66-25-7646Fosddbvaig hospital visit by physicianRadha Cantrell Echo/Vasc Room 2[facility] CenterComment on above:Mitral valve insufficiency, unspecified etiologyStart: 71-39-2155Zuc-patient / Non-visitCatherine Manny FORMING ROLL OPERATOR-[facility] Work Phone: Start: 30-72-1613Wlbvixfxe Lewis FORMING ROLL OPERATOR-[facility] Work Phone: Start: 04-13-2025 End: 93-79-7653pjiekuhvpwLhgdxazs MarshallFacility:[facility] Start: 33-62-2744Fqm-patient / Non-visitMaike Mendoza MD-[facility] Work Phone: Start: 83-81-0764BoteqzfRomain Mendoza MD-[facility] Work Phone: Start: 59-03-2153Dkv-patient / Non-visitKishore Forte [facility] Work Phone: Start: 99-12-0873WjuzKishore Forte APRSamaritan Healthcare Professional Co Work Phone: Start: 88-57-2483Fug-patient / Non-visitAngel Cook MD [facility] Work Phone: Start: 97-75-6572Brcqg Qadir MDPENN STATE HEALTH [facility] Work Phone: Start: 04-01-2025 End: 66-50-5577cfoebqlnbmUlbxmpee Marshall DO Work Phone: [facility] Work Phone: Start: 04-01-2025 End: 31-95-5843Zhderbr encounter procedureMaike Mendoza MD-[facility] Work Phone: Start: 04-01-2025 End: 49-53-5416HhxhfanRomain Mendoza MD-[facility] Work Phone: Start: 64-86-0146Zuf-patient / Non-visitNancy Haas MDWvumedicine [facility] Work Phone: Start: 30-42-5175Uosa Bakhous MDWvumedicine [facility] Work Phone: Start: 67-35-2438Hpq-patient / Non-visitAngel Cook MD [facility] Work Phone: Start: 72-31-4660Fmsyz Qadir MDPENN STATE HEALTH [facility] Work Phone: Start: 28-56-6191Swc-patient / Non-visitBryce Coy MD-[facility] Work Phone: Start: 01-21-2025 End: 58-08-7715Otxliiklt to same day surgery centerBenjamin Ball DO Work Phone: [facility]-Nut Dehydrator Operator Work Phone: Start: 01-21-2025 End: 70-05-2942fakvijeyvfOivazzzv Ball DO Work Phone: [facility] Work Phone: Start: 01-19-2025 End: 86-32-1599Zfohfmq encounter procedureBenjamin Ball DO Work Phone: [facility] Oiu-Veh-Snlokigh Testing Work Phone: Start: 01-19-2025 End: 48-43-4528ecmlwphuqpCgiskbam Ball DO Work Phone: [facility] Work Phone: Start: 80-56-2404Quuomhhmb for preprocedural laboratory examinationW Rene GomezSt. Vincent'S Medical [facility]side Physician GroupStart: 01-31-1873Hvz-patient / Non-visitBryce Coy MD-[facility] Work Phone: Start: 01-12-2025 End: 49-22-7990sgmzxmtodoIffrtjac Ball DO Work Phone: [facility] Work Phone: Start: 01-12-2025 End: 64-08-6905Bskyzct encounter procedureBentenamin Ball DO Work Phone: [facility] Work Phone: Start: 12-22-2024 End: 31-57-2560wppjnkywhtIENZLMMount St. Mary [facility] Start: 20-33-7215Vjt-patient / Non-visitBentenamin Ball DO Work Phone: [facility] Work Phone: Start: 12-16-2024 End: 41-84-8293Pitgzugbn department patient visitBenamy Olivares DO Work Phone: [facility]-Emergency Room Work Phone: Start: 12-10-2024 End: 81-79-5659Khsvjx flowsMiguel A Ferrell DPM Work Phone: noMS CI PODIATRYStart: 12-10-2024 End: 83-27-1482Mqqslu flowsMiguel A Ferrell DPM Work Phone: noMS CI PODIATRYStart: 12-10-2024 End: 87-91-0280haikqvqpiyTGXHTNGS A BROWNNot AvailableStart: 12-10-2024 End: 33-50-3073Jwfqtgu encounter procedureDavid Ferrell DPM Work Phone: noMS CI PODIATRYComment on above:Type 2 diabetes mellitus without complication, with long-term current use of insulin (Primary Dx); Pain due to onychomycosis of toenails of both feet; Hav (hallux abducto valgus), leftStart: 40-09-4910Dpp-patient / Non-visit Eusebio Ball DO Work Phone: [facility] GroupW[facility]umed[facility] Work Phone: Start: 11-24-2024 End: 42-30-9983Qfdibb outpatient visit [address] [place] [address] Work Phone: uh [facility] on above:ASHD (arteriosclerotic heart disease); History of VA (myocardial infarction); Status post insertion of drug eluting coronary artery stent; Aortic valve disorder; ESRD (end stage renal disease) on dialysis (Multi); Vapes nicotine containing substanceStart: 11-24-2024 End: 76-87-1783siudrsqmddLOJZUSKSouth [facility] Medical Center AmbulatoryStart: 59-72-0094ponjvqigznVZJPAMThe Jewish Hospitaltart: 42-62-0244Wuq-patient / Non-visitBenjamin Ball DO Work Phone: [facility] GroupWvumedicine [facility] [place] Work Phone: [phone]: 01-53-8687Mmd-patient / Non-visitBenjamin Ball DO Work Phone: [facility] Work Phone: Start: 11-03-2024 End: 10-94-4681rnymmdxcyiYNJDILFirelands Regional Medical Center Start: 11-03-2024 End: 79-15-8309chsiswvsyhTZJYJ [facility] Hospitaltart: 32-62-8997Plw-patient / Non-visitBenjamin Ball DO Work Phone: [facility] Work Phone: Start: 11-01-2024 End: 08-49-9259ehdxzrbqomAaxsiq J Greenuniversity hospitals geneva medical centerFacility:[facility] Hospitaltart: 11-01-2024 End: 63-17-9748Zchdyfmmly and management of inpatientBenjamin Ball DO Work Phone: [facility] [place] [facility] Work Phone: Start: 11-01-2024 End: 67-15-3769dwzenlxeawt encounterBenjamin Ball DO Work Phone: [facility] Work Phone: Start: 10-30-2024 End: 12-89-2551Hvrdtzyqb department patient visitBenjamin Ball DO Work Phone: [facility]-Emergency Room Work Phone: Start: 78-98-7224ugpcvleadwDJTJS [facility] Centertart: 10-14-2024 End: 85-42-8995unzvvrkhjwQqbfrbvl Ball DO Work Phone: [facility] Work Phone: Start: 10-14-2024 End: 69-73-0809Sunbwhk encounter procedureBenjamin Ball DO Work Phone: [facility] Work Phone: Start: 67-02-1302Piy-patient / Non-visitBenjamin Ball DO Work Phone: [facility] Work Phone: Start: 86-07-9123Nzz-patient / Non-visitBenjamin Ball DO Work Phone: [facility] Work Phone: Start: 66-79-8889Yts-patient / Non-visitBenjamin Ball DO Work Phone: [facility] Work Phone: Start: 96-59-0228Dbm-patient / Non-visitBenjamin Ball DO Work Phone: [facility] GroupT[facility] Work Phone: Start: 65-47-7685Fow-patient / Non-visitBenjamin Ball DO Work Phone: [facility] Physician [facility] Work Phone: Start: 09-73-2295Lahhccte Ball DO Work Phone: [facility] GroupE[facility] Work Phone: Start: 54-08-5906Uqv-patient / Non-visitBenjamin Ball DO Work Phone: [facility] Physician [facility] Ne[facility] Work Phone: Start: 63-93-0732Raoijysu Ball DO Work Phone: [facility] Physician [facility] Sand Work Phone: Start: 09-16-2024 End: 16-04-1630Rojchxucji and management of inpatientBenjamin Ball DO Work Phone: [facility] [place] [facility] Work Phone: Start: 09-16-2024 End: 84-34-5149Nfuhwcoc Ball DO Work Phone: [facility] [place] [facility] Work Phone: Start: 09-15-2024 End: 20-48-7386yskpdvveghDYQJXL DAHLIAAdena [facility] Start: 42-24-3094Gct-patient / Non-visitBenjamin Ball DO Work Phone: [facility] Physician [facility] Work Phone: Start: 53-49-4202Lffxjyptx for other preprocedural examinationKUNAL [facility] Hospitaltart: 09-08-2024 ambulatoryGEORGE MOGreen Cross Hospitaltart: 09-08-2024 ambulatoryKUNAL [facility] Hospitaltart: 09-08-2024 Encounter for other preprocedural examinationKUNAL [facility] Hospitaltart: 09-02-2024 End: 67-39-1837bntpvoomhaNvndtjdo Ball DO Work Phone: [facility] Work Phone: Start: 09-02-2024 End: 95-88-0197Woajgebjs for general adult medical examination without abnormal findingsBenjamin Ball DO Work Phone: [facility] Hospitaltart: 09-02-2024 End: 84-93-8033Jvgbrus encounter procedureBenjamin Ball DO Work Phone: [facility] Work Phone: Start: 09-02-2024 End: 12-51-0437Iycvecry Ball DO Work Phone: [facility] Work Phone: Start: 09-01-2024 End: 39-34-1824wofhzuiyouITZNBKMercy Health Allen Hospitaltart: 12-13-6910Wlt-patient / Non-visitBenjamin Ball DO Work Phone: [facility] Work Phone: Start: 10-86-9425Ykczfxeh Ball DO Work Phone: [facility] GroupE[facility] Work Phone: Start: 08-28-2024 End: 11-91-0637Ydolhnngdg and management of inpatientBenjamin Ball DO Work Phone: [facility] [place] [facility] Work Phone: Start: 08-28-2024 End: 38-26-8333Jmtleexv Ball DO Work Phone: [facility] [place] [facility] Work Phone: Start: 85-79-4218Adf-patient / Non-visitBenjamin Ball DO Work Phone: [facility] Work Phone: Start: 81-52-2929Aoxxluax Ball DO Work Phone: [facility] Work Phone: Start: 08-17-2024 End: 97-58-6853Ydtoenyx Result EncounterAlison M Faggionato SLOT AMBASSADOR Work Phone: noms External Department UnsolicitedStart: 08-17-2024 End: 02-60-5225Xqrpbudj Result EncounterAlison M Faggionato SLOT AMBASSADOR Work Phone: noms External Department UnsolicitedStart: 08-17-2024 End: 07-33-7705Kkmcmepn Ball DO Work Phone: [facility]-Emergency Room Work Phone: Start: 08-17-2024 End: 09-94-0594Vadipxble department patient visitBenjamin Ball DO Work Phone: [facility]-Emergency Room Work Phone: Start: 32-42-3417Xcxiflv encounter statusBenjamin Ball DO Work Phone: [facility]tart: 08-13-2024 End: 11-84-9041ovjrrnovudGFDEHR [facility] Start: 74-55-8284fzuwpzmjjmFZPHBX [facility] Start: 92-82-7266Whbvzuirp for preprocedural cardiovascular examinationGEThe Jewish Hospitaltart: 27-60-2914Sgk-patient / Non-visitBenjamin Ball DO Work Phone: [facility] Physician GroupWvumedicine [facility] Work Phone: Start: 02-57-2149Bmnoxsig Ball DO Work Phone: [facility] Physician GroupWvumedicine [facility] Work Phone: Start: 59-67-8509Ddy-patient / Non-visitBenjamin Ball DO Work Phone: [facility] Physician GroupTucson [facility] Work Phone: Start: 32-79-6407Dkftfogi Ball DO Work Phone: [facility] GroupTucson [facility] Center Medical [facility] Work Phone: Start: 08-01-2024 End: 62-57-1887Wcpithql Ball DO Work Phone: [facility]-Emergency Room Work Phone: Start: 08-01-2024 End: 25-07-5738Bondhojkr department patient visitBenjamin Ball DO Work Phone: [facility]-Emergency Room Work Phone: Start: 07-14-2024 End: 47-58-7352hojtxypfopKNBRJN [facility] Hospitaltart: 99-87-7556gtdrihvuwaPJAZD MARAHProvidence Hospitaltart: 96-95-3101Yrq-patient / Non-visitBenjamin Ball DO Work Phone: [facility] Physician GroupWvumedicine [facility] Work Phone: art: 80-21-3503Ilqyemma Ball DO Work Phone: [facility] Physician GroupWvumedicine [facility] Work Phone: Start: 85-36-7319Ocu-patient / Non-visitBenjamin Ball DO Work Phone: [facility] Work Phone: Start: 06-22-2024 End: 21-58-0232Mujlshujhy and management of inpatientBebrayan Olivares DO Work Phone: [facility]-4 [place] [facility] Work Phone: Start: 06-22-2024 End: 09-93-9351Rwrlrciu Ball DO Work Phone: [facility] Work Phone: Start: 06-22-2024 End: 50-51-6710ndcavkgxyiKaxqq QadirFacility:[facility] Start: 27-53-6069Fnt-patient / Non-visitBebrayan Olivares DO Work Phone: [facility] Work Phone: Start: 06-11-2024 End: 47-01-5541Mvdman outpatient visit 40 Lilian Gomez DO Work Phone: uh [facility] HealthComment on above:ASHD (arteriosclerotic heart disease); Congestive heart failure, unspecified HF chronicity, unspecified heart failure type; Essential hypertension, benign; History of VA (myocardial infarction); Mixed hyperlipidemia; Status post insertion of drug eluting coronary artery stent; ESRD (end stage renal disease) on dialysis (Multi); Type 2 diabetes mellitus with chronic kidney disease on chronic dialysis, with long-term current use of insulin (Multi); BMI 21.0-21.9, adult; Current every day smokerStart: 06-04-2024 End: 86-00-1087Okxqgf flowsMiguel A Ferrell DPM Work Phone: noMS CI PODIATRYStart: 06-04-2024 End: 11-42-7767Smljze flowsMiguel A Ferrell DPM Work Phone: noms CI PODIATRYStart: 06-04-2024 End: 34-07-0337Tqfpevo encounter procedureDavid Ferrell DPM Work Phone: NOMS CI PODIATRYComment on above:Type 2 diabetes mellitus without complication, with long-term current use of insulin ([facility]) (Primary Dx); Pain due to onychomycosis of toenails of both feet; Hav (hallux abducto valgus), leftStart: 06-04-2024 End: 73-07-5482oigdpirmkbQPNYKZVC A BROWNNot AvailableStart: 04-29-2024 End: 17-44-9855updcdgcgsgLM [facility] Work Phone: [facility] Work Phone: Start: 04-29-2024 End: 81-43-6991Kcsibtl encounter procedureDO Eusebio [employer] Work Phone: [facility] Phys[facility] Work Phone: Start: 55-73-5764Glr-patient / Non-visitDO Eusebio [employer] Work Phone: [facility] Work Phone: Start: 03-26-2024 End: 79-85-1648dajdakzgxzQLILHKFN A BROWNNot AvailableStart: 03-19-2024 End: 48-63-9797pppccmfxriMK Eusebio [employer] Work Phone: [facility] Work Phone: Start: 03-19-2024 End: 47-84-8392Qmdjbvf encounter procedureDO [employer] Work Phone: [facility] Work Phone: Start: 11-87-9217Ujn-patient / Non-visitDO Eusebio [employer] Work Phone: [facility] Work Phone: Start: 70-55-9788Kpp-patient / Non-visitDO Eusebio [employer] Work Phone: [facility] Nephrology Work Phone: Start: 03-09-2024 End: 45-26-8045Jmxezyrlca and management of inpatientDO Eusebio Ball Work Phone: [facility]-4 [place] [facility] Work Phone: Start: 15-13-7769Bnt-patient / Non-visitDO Eusebio Ball Work Phone: [facility] Work Phone: Start: 18-94-6519Lwr-patient / Non-visitDO Eusebio Ball Work Phone: [facility] Nephrology Work Phone: Start: 03-01-2024 End: 35-51-6505Nosdukztzq and management of inpatientDO Eusebio Ball Work Phone: [facility] Work Phone: Start: 27-32-5642Nyv-patient / Non-visitDO Eusebio Ball Work Phone: [facility] Work Phone: Start: 60-58-3700Ysy-patient / Non-visitDO Eusebio Ball Work Phone: [facility] Work Phone: Start: 29-88-3084Mvp-patient / Non-visitDO Eusebio Ball Work Phone: [facility] Work Phone: Start: 63-17-6736Ste-patient / Non-visitDO Eusebio Ball Work Phone: [facility] Work Phone: Start: 01-10-2024 End: 83-07-7904chzsbudnvyUN Eusebio Ball Work Phone: [facility] Work Phone: Start: 01-10-2024 End: 69-07-6493Urquempe ReferredDO Eusebio Ball Work Phone: [facility]-Dialysis Work Phone: Start: 01-09-2024 End: 83-24-0485btlmzyeiprFYEZMAFZ Alejandrina Rajan AvailableStart: 01-09-2024 End: 65-17-3447mbwqbehqinEI Eusebio Olivares Work Phone: [facility] Work Phone: Start: 01-09-2024 End: 07-55-1902Kuauhiz encounter procedureDO Eusebio Olivares Work Phone: [facility] Vascular Surgery Work Phone: Start: 16-79-5850Abf-patient / Non-visitDO Eusebio Olivares Work Phone: [facility] Work Phone: Start: 12-03-2023 End: 14-57-5333Vixheb outpatient visit 25 Lilian Gomez DO Work Phone: uh Ecu HealthComment on above:ASHD (arteriosclerotic heart disease); Essential hypertension, benign; Mixed hyperlipidemia; History of VA (myocardial infarction); Status post insertion of drug eluting coronary artery stent; ESRD (end stage renal disease) on dialysis (Multi); Current every day smoker; Type 2 diabetes mellitus with chronic kidney disease on chronic dialysis, with long-term current use of insulin (Multi); BMI 22.0-22.9, adultStart: 14-26-7138Qhj-patient / Non-visitDO Eusebio Olivares Work Phone: [facility] V[facility] Work Phone: Start: 11-26-2023 End: 27-92-4398Mwcuordom to same day surgery centerDO Eusebio Olivares Work Phone: [facility] Main CampusStart: 11-26-2023 End: 75-53-2410qkoagkeskiAD Eusebio Olivares Work Phone: [facility] Work Phone: Start: 11-18-2023 End: 29-14-1782wemwickyszCckerfg R WATERSFacility:EU JacquelineueStart: 11-18-2023 End: 28-74-3325Ashxjgp encounter procedurePajonh SHERIFF [facility] start: 11-14-2023 End: 92-99-3789yhjjhmqbyiDT Eusebio Olivares Work Phone: [facility] Work Phone: Start: 11-14-2023 End: 70-22-4540Klxjcpz encounter procedureDO Eusebio Olivares Work Phone: [facility] Work Phone: Start: 22-58-6750Uso-patient / Non-visitDO Eusebio Olivares Work Phone: [facility] Work Phone: Start: 10-84-1768Evh-patient / Non-visitDO Eusebio Olivares Work Phone: [facility] Vascular Surgery Work Phone: Start: 10-31-2023 End: 21-22-1509Bcoyegwyp to same day surgery centerDO Eusebio Olivares Work Phone: [facility]-Interventional Radiology Work Phone: Start: 10-31-2023 End: 38-07-2595hjkaxohzulXK Eusebio Olivares Work Phone: [facility] Work Phone: Start: 10-17-2023 End: 49-36-1234Ergyyps encounter procedureDO Eusebio Olivares Work Phone: [facility] Vascular Surgery Work Phone: Start: 10-17-2023 End: 14-58-6794Cptolxk encounter procedureDO Eusebio Olivares Work Phone: [facility] Palliative Care Work Phone: Start: 05-38-8101Dfn-patient / Non-visitDO Eusebio Olivares Work Phone: [facility] Work Phone: Start: 10-02-2023 End: 43-21-9782Dfpdzvoej department patient visitDO Eusebio Olivares Work Phone: [facility]-Emergency Room Work Phone: Start: 10-01-2023 End: 96-22-6976Emqnpum encounter procedureDO Eusebio Olivares Work Phone: [facility] Ambulatory Work Phone: Start: 98-83-6100Hrjinoxwvb RecurringDO Eusebio Olivares Work Phone: [facility]-Cancer Center Acute Work Phone: Start: 09-30-2023 End: 29-65-3768Uwcxpo outpatient visit 15 minutesNelida Carrington SLOT AMBASSADOR Work Phone: noms CI ORTHOPAEDICSComment on above:Left shoulder pain, unspecified chronicity (Primary Dx); Impingement of left shoulder; Internal derangement of left shoulderStart: 45-44-4032Oppwmvve Result Encounter Kishore Forte SLOT AMBASSADOR Work Phone: noms External Department UnsolicitedStart: 09-24-2023 External Result EncounterKishore Forte SLOT AMBASSADOR Work Phone: noms External Department UnsolicitedStart: 09-05-2023 End: 76-20-4372xodjutylsyGaimdath Ball Other [facility] [employer] Other Start: 31-96-9136Nukdbrhzu encounterEusebio Olivares Medical ClinicStart: 41-38-7031Guypwf outpatient visit 10 minutesMattmolly Corral Vascular SurgeryStart: 08-29-2023 End: 67-99-5392wgzconkhacJV Eusebio Olivares Work Phone: [facility] Work Phone: Start: 08-29-2023 End: 73-98-4011Ysfshke encounter procedureDO Eusebio Olivares Work Phone: [facility]-Ultrasound [facility] VascularStart: 08-29-2023 End: 45-97-6627Rzmjora encounter procedureDO Eusebio Olivares Work Phone: [facility] Work Phone: Start: 08-26-2023 End: 35-03-4700fkfobbemfxNlblyjid Ball Other [employer] Other Start: 76-09-8117Hxljdzmbe encounterBekevinamy Olivares Medical ClinicStart: 08-18-2023 End: 17-83-6098Tztelyaphl and management of inpatientDO Eusebio Olivares Work Phone: [facility]-[address] [place] [facility] Work Phone: Start: 08-18-2023 End: 91-60-9333tnsmuavbzvy encounterDO Eusebio Olivares Work Phone: [facility] Work Phone: Start: 08-13-2023 End: 01-20-2682dbcopgimjaVvjtiksx Ball Other [employer] Other Start: 71-59-1123Nzqoeb outpatient visit 25 minutes Eusebio Olivares Medical ClinicStart: 08-13-2023 End: 19-14-7500Wycxvzn encounter procedureDO Eusebio Olivares Work Phone: [facility] Work Phone: Start: 07-22-2023 End: 33-44-7845ymstgvwhxjCvmtweid Ball Other [employer] Other Start: 85-33-3891Mxfohwtqs encounterBenamy Olivares Medical ClinicStart: 07-16-2023 End: 25-40-3093rovpawwuwhDrxqrdlk Ball Other [employer] Other Start: 88-81-8412Mbmbpj outpatient visit 25 minutes Eusebio Olivares Medical ClinicStart: 07-16-2023 End: 70-13-7830Ipupdae encounter procedureDO Eusebio Olivares Work Phone: [facility] Work Phone: Start: 07-04-2023 End: 94-89-5098aidenbveobKhaqswo Langenberg Other [facility] [employer] Other Start: 78-71-2847Zycdak outpatient visit 10 minutes Romain Corral Vascular SurgeryStart: 07-02-2023 End: 25-92-7253lkkgqpobimYH Eusebio Olivares Work Phone: [facility] Work Phone: Start: 07-02-2023 End: 38-75-8251Ogyclkc encounter procedureDO Eusebio Olivares Work Phone: [facility]-Ultrasound [facility] VascularStart: 06-17-2023 End: 44-01-9661Hapxpqvwz to same day surgery centerDO Eusebio Olivares Work Phone: [facility]-Interventional Radiology Work Phone: Start: 06-17-2023 End: 72-77-1904jahrvlyepnWJ Eusebio Olivares Work Phone: [facility] Work Phone: Start: 34-35-8091Gkcwfg outpatient visit 15 minutes Zina Cifuentes Vascular SurgeryStart: 06-13-2023 End: 37-59-4093stkhqomdllJR Eusebio Olivares Work Phone: [facility] [employer] Other Start: 06-13-2023 End: 81-76-2305Mhuxlft encounter procedureDO Eusebio Olivares Work Phone: [facility]-Ultrasound [facility] VascularStart: 05-28-2023 End: 34-95-1452thbiqzjalnObnlnewl Ball Other [place] [employer] Other Start: 26-36-9417Xhvdfc outpatient visit 15 minutes Eusebio OlivaresBRENDA [facility] ClinicStart: 49-74-3558Ee RenewalBentenamin E [facility] Work Phone: [phone]-Tarew [facility] DO Work Phone: Start: 04-12-2023 End: 68-38-0445Qiagsrmnh to same day surgery centerDO Eusebio Olivares Work Phone: [facility]-Interventional Radiology Work Phone: Start: 04-12-2023 End: 62-00-5278dlfibjldnaRY Eusebio Olivares Work Phone: [facility] Work Phone: Start: 04-10-2023 End: 76-89-2661vdpivtoktxGfidway Langenberg Other [facility] [employer] Other Start: 92-83-1066Efniri outpatient visit 15 minutes Romain Corral Vascular SurgeryStart: 52-48-8746Ohrbarlyd encounter Romain Corral Vascular SurgeryStart: 04-10-2023 End: 34-97-9312Fffpmcw encounter procedureDO Eusebio Olivares Work Phone: [facility]-Ultrasound [facility] VascularStart: 03-26-2023 End: 18-59-8952izimjounuqPQ Eusebio Olivares Work Phone: [facility] Work Phone: Start: 03-26-2023 End: 84-42-9677Cpjcdsbfib RecurringDO Eusebio [employer] Work Phone: [facility] Work Phone: Start: 76-22-1220Fhewgx outpatient visit 25 minutes Angel QadirFPG NephrologyStart: 02-27-2023 End: 64-35-2421Grduzuf encounter procedureZina Childs Other [facility]-Ultrasound [facility] VascularStart: 01-23-5022Qxayotfob encounterAbdul QadirFPG NephrologyStart: 23-62-3850Fojqlqqzac RecurringDO Eusebio [employer] Work Phone: [facility] Work Phone: Start: 02-27-2023 End: 64-19-5361zgjolbivziNC Eusebio [employer] Work Phone: [place] [employer] Other Start: 09-36-1338Japqgu outpatient visit 15 minutes Eusebio E Ball Work Phone: [phone]-Zbjag [facility] DO Work Phone: Start: 73-85-8453pzaphwzefhLoEsa Gomez Facility:[id number]: 02-11-2023 End: 15-62-4973pqefjuzzloMevoj Joyce Other [place] [employer] Other Start: 74-13-3144Voezjd outpatient visit 15 minutes Angel QadirFPG NephrologyStart: 31-83-7865Bh RenewalBenjamin E Ball Work Phone: [phone]-Rmsen [facility] [address] DO Work Phone: Start: 62-35-6199Yj RenewalBenjamin E Ball Work Phone: [phone]-Yrgim [facility] [address] DO Work Phone: Start: 12-45-4631Zbobkllxe encounterThanhjessica OlivaresALLANSujatha Olivares [facility] ClinicStart: 02-04-2023 End: 71-99-9166Tzdolqxvx to same day surgery centerDO Eusebio Olivares Work Phone: [facility]-Nut Dehydrator Operator Work Phone: Start: 02-04-2023 End: 65-48-0750gnpgmpvfwiDE Eusebio Olivares Work Phone: [facility] Work Phone: Start: 97-84-8680Ujuzj UpdateBekevinamy Olivares Work Phone: [phone]-Jcblg [facility] DO Work Phone: Start: 01-31-2023 End: 60-07-2267hfhdrsyvevEY Eusebio Olivares Work Phone: [facility] Work Phone: Start: 01-31-2023 End: 92-08-5422Onzucdy encounter procedureDO Eusebio Olivares Work Phone: [facility] Fqg-Wfr-Wlqfkepl Testing Work Phone: Start: 01-23-2023 End: 91-27-0047gtjtoypwouRxcerjx Langkaley Other [place] [employer] Other Start: 50-51-7246Apqobg follow up visit related to original pxMattmolly MendozaFPG Vascular SurgeryStart: 14-19-2573Xt Renewal Eusebio Olivares Work Phone: [phone]-Bekbs [facility] DO Work Phone: Start: 85-65-6121Kkadlj outpatient visit 40 minutes Eusebio Olivares Work Phone: [phone]-Dnyhj [facility] DO Work Phone: Start: 25-07-7056ookqhuxdtjHcEsa Gomez Facility:[id number]: 65-70-3920atjdhexptyMsEsa Brarcility:9090 Start: 01-09-2023 End: 00-30-6653Jqbjtdtlij and management of inpatientDO Eusebio Olivares Work Phone: [facility]-[address] [place] Progressive Work Phone: Start: 12-25-2022 End: 55-01-8630Vjbfokbun department patient visitDO Mickyedamon Gr Work Phone: [facility]-Emergency Room Work Phone: Start: 12-25-2022 End: 68-89-8062ookjuzowzsYY Mickey Gr Work Phone: [facility] Work Phone: Start: 12-25-2022 End: 67-92-7883Qbisvti encounter procedureDO Mickey Gr Work Phone: [facility]-Lab Main [place] Work Phone: Start: 12-18-2022 End: 31-20-1968Aqjuvnewb to same day surgery centerDO Mickey Gr Work Phone: [facility]-Surgery Center Main PonceStart: 12-11-2022 End: 69-65-6991Mxnajoztc to same day surgery centerDO Mickey Carlosoanh Work Phone: [facility]-Interventional Radiology Work Phone: Start: 12-11-2022 End: 19-59-0067hevrhfytqtEO Mickey Gr Work Phone: [facility] Work Phone: Start: 12-06-2022(INJECTION) INJECTIONAbdul QadirFPG NephrologyStart: 12-06-2022 End: 59-62-5856fgpvbaosecLadlg Joyce Other [place] [employer] Other Start: 12-04-2022 End: 73-49-8747Tkdahomgl to same day surgery centerDO Eusebio Olivares Work Phone: [facility]-Interventional Radiology Work Phone: Start: 12-04-2022 End: 55-40-5421qmqdsfyivoLV Eusebio Olivares Work Phone: [facility] Work Phone: Start: 11-28-2022 End: 63-62-5145Vcvysgl encounter procedureZina Cifuentes Vascular Surgery Start: 11-28-2022 End: 31-67-3433ezizurtuonMR Eusebio Olivares Work Phone: [employer] Other Start: 11-26-2022 End: 28-43-6886onogrqewkgUtcgn Joyce Other [employer] Other Start: 68-72-2746Npwxdkfez encounterAbdul QadirFPG NephrologyStart: 11-20-2022 End: 36-97-9271sciktuoqtuHY Eusebio Olivares Work Phone: [facility] Work Phone: Start: 11-20-2022 End: 33-10-2384Ulccbri encounter procedureDO Eusebio Olivares Work Phone: [facility]-Lab Main [place] Work Phone: Start: 11-19-2022 End: 03-71-0598qbpzazbzndDkdhj Joyce Other [employer] Other Start: 09-32-7180Dyeyco outpatient visit 25 minutes Angel QadirFPG NephrologyStart: 61-38-7739FJGOPMTPY, Provider: Brianna Gomez, Status: Pen, Time: 2:00 PMBenamy Arreguin Ball Work Phone: [phone]-Cprhf [facility] DO Work Phone: Start: 11-14-2022 End: 61-62-4472sxzjjnxjagQL Eusebio Ball Work Phone: [facility] [employer] Other Start: 11-14-2022 End: 76-52-5931Qpfusscs ReferredDO Eusebio Ball Work Phone: [facility]-Nut Dehydrator Operator Work Phone: Start: 04-85-9128Cfrqkcjzh encounterAbdul QadirFPG NephrologyStart: 98-27-5356Lbxgv UpdateBenjamin E Ball Work Phone: [phone]-[facility]abR[facility] [address] DO Work Phone: Start: 87-79-4625Cvhqaqjwz encounterBenjamin BallFPG [facility] ClinicStart: 11-12-2022 End: 84-85-8519vyrmlcxfquQJ Eusebio Ball Work Phone: [facility] Work Phone: Start: 11-12-2022 End: 81-10-5437Ryhtxde encounter procedureDO Eusebio Olivares Work Phone: [facility] Aik-Wgw-Ekjthhlc Testing Work Phone: Start: 66-72-9529Eolhecxuy encounterBenjamin E Ball Work Phone: [phone]-XhdgwR[facility]-[place] [address] DO Work Phone: Start: 10-23-2022 End: 04-36-0950dlroaoycgoTwfsrwlw Ball Other [facility] [employer] Other Start: 38-31-3263Xxjwkbgll encounterBenjamin BallFPG [facility] ClinicStart: 62-17-4954Wneyfv outpatient visit 25 minutesBenjamin E Ball Work Phone: [phone]-Umyjx [facility] DO Work Phone: Start: 42-13-2083yptgraifmiYfEsa Olivares Facility:[id number]: 10-16-2022 End: 47-35-7503voemeemmmsHveqi Joyce Other [facility] [employer] Other Start: 88-79-5321Yvjqqe outpatient visit 25 minutes Angel QadirFPG NephrologyStart: 10-10-2022 End: 80-70-8252Zfigpvq encounter procedureDO Eusebio Olivares Work Phone: [facility]-Lab Main [place] Work Phone: Start: 10-10-2022 End: 46-92-8751ukgzybskiwNU Eusebio [facility] Work Phone: [facility] Work Phone: Start: 10-08-2022 End: 84-29-2476lhoqbhgpkpFkwjduqe Ball Other [facility] [employer] Other Start: 28-23-6267Ulxotz outpatient visit 25 minutes Eusebio Olivares Medical ClinicStart: 86-33-6275jxhheemeorTeEsa Kaplan Edrj MarshallFacility:[id number]: 10-03-2022 End: 60-15-0879Adszuoeadp and management of inpatientDO Zeus Bradley Work Phone: [facility]-[address] [place] [facility] Work Phone: Start: 10-03-2022 End: 04-84-2986eujejrzzedj encounterDO Zeus Bradley Work Phone: [facility] Work Phone: Start: 09-17-2022 End: 74-43-7964Ysivaeguh to same day surgery centerDO Eusebio [facility] Work Phone: [facility]: 09-17-2022 End: 97-50-6913rhgprprjndDD Eusebio Marshall Work Phone: [facility] Work Phone: Start: 30-88-5259tjrguzzwsfIGXFN QADIRFacility:H1 Start: 09-10-2022 End: 16-98-1538Hvrbtyx encounter procedureDO Eusebio Olivares Work Phone: [facility]-Pre-Surgical Testing Work Phone: Start: 09-10-2022 End: 15-79-4325bmdseqlxokWH Eusebio Olivares Work Phone: [facility] Work Phone: Start: 09-10-2022 End: 35-25-9473Qqrirfbacj RecurringDO Eusebio Olivares Work Phone: [facility]-Cancer Center Work Phone: Start: 09-05-2022 End: 36-03-0560lameozohvyHE Eusebio Olivares Work Phone: [facility] Work Phone: Start: 39-26-0487Wkszbt outpatient new 45 minutes Romain Corral Vascular SurgeryStart: 09-05-2022 End: 52-54-9335Qzcgiqk encounter procedureDO Eusebio Olivares Work Phone: [facility]-Ultrasound [facility] [place] Work Phone: Start: 18-47-4640Kwkvbrnfnn RecurringDO Eusebio Olivares Work Phone: [facility]-Cancer Center Work Phone: Start: 08-30-2022 End: 15-14-2097zovpgwfpqjSvnkt Joyce Other [place] [employer] Other Start: 73-62-0094Lxcuqo outpatient visit 25 minutes Angel QadirFPG NephrologyStart: 68-86-7396Bkbsxcixt encounterAbdul QadirFPG NephrologyStart: 08-29-2022 End: 27-81-1839Bxkvcuk encounter procedureMickey SHERIFF [facility] Óscar Start: 08-17-2022 End: 55-37-9854tjaiaoosmgOE Eusebio Olivares Work Phone: [facility] Work Phone: Start: 08-17-2022 End: 19-52-5551Zrrevfy encounter procedureDO Eusebio Olivares Work Phone: [facility]-Lab Main [place] Work Phone: Start: 08-13-2022 End: 99-69-2421Jfkvwtfdxb and management of inpatientDO Eusebio Olivares Work Phone: [facility] [place] [facility] Work Phone: Start: 08-13-2022 End: 94-14-2586yhdpprlgjlg encounterDO Eusebio Olivares Work Phone: [facility] Work Phone: Start: 30-34-5129Arrszcixb encounterMelAscension [facility] Transplant CenterComment on above:Returning Patient's CallStart: 82-46-0793Rpjnt UpdateEusebio Olivares Work Phone: [phone]-Qxebh [facility] DO Work Phone: Start: 07-19-2022 End: 39-32-4003Pjfgxwa encounter procedureDO Eusebio Olivares Work Phone: [facility]-Electrodiagnostics Work Phone: Start: 67-01-1864qfoszehtdtLo. Eusebio Olivares Facility:[id number]: 51-75-1220Slaln health examinationMattmolly Mendoza Other [place] [employer] Other Start: 07-09-2022 End: 43-32-5128Usbgqwlls department patient visitDO Eusebio Olivares Work Phone: [facility]-Emergency RoomStart: 48-78-9109fpjhkwybfnZjEsa Kaplan Edrj MarshallFacility:[address]Txtet: 07-05-2022 Office outpatient visit 25 minutesBejasonjessica Olivares Work Phone: [phone]-Yofcq [facility] [address] DO Work Phone: Start: 07-04-2022 End: 79-93-5762xrermhiqxwKjirj Joyce Other [employer] Other Start: 88-07-7092Fnbahl outpatient visit 15 minutes Angel QadirFPG NephrologyStart: 06-29-2022 End: 48-26-7066pelphubhngDO Eusebio Olivares Work Phone: [facility] Work Phone: Start: 06-29-2022 End: 76-75-5285Wxnmsdr encounter procedureDO Eusebio Olivares Work Phone: [facility]-Lab Main CampusStart: 06-13-2022 End: 50-70-9886Xiclfoanb department patient visitDO Eusebio Olivares Work Phone: [facility]-Emergency RoomStart: 06-03-2022 End: 67-73-9395Ffoswikzk department patient visitDO Eusebio Olivares Work Phone: [facility]-Emergency RoomStart: 05-29-2022 End: 25-82-3454tjkesnwwktRK Eusebio Olivares Work Phone: [facility] Work Phone: Start: 05-29-2022 End: 83-24-6329Lsnqwnopxy RecurringDO Eusebio Olivares Work Phone: [facility]-Cancer CenterStart: 05-23-2022 End: 32-64-4593tvcnffjxgcWafbn Joyce Other [employer] Other Start: 47-06-0845Armmqk outpatient visit 25 minutes Angel QadirFPG NephrologyStart: 05-21-2022 End: 76-05-1430Membesiql department patient visitDO Eusebio Olivares Work Phone: [facility]-Emergency RoomStart: 05-18-2022 End: 55-26-2630Tbeivulhj to same day surgery centerDO Eusebio Olivares Work Phone: [facility]-CT Scan Main [place] Start: 05-18-2022 End: 51-46-0006ixaemlxshnUD Eusebio Olivares Work Phone: [facility] Work Phone: Start: 71-62-2963Tsaofebzyq RecurringDO Eusebio Olivares Work Phone: [facility]-Cancer CenterStart: 05-09-2022 End: 42-19-2384Sholizbaov RecurringDO Eusebio Olivares Work Phone: [facility]-Cancer CenterStart: 04-29-2022 End: 18-65-1772utmsynifboRteei Joyce Other [employer] Other Start: 73-42-2971Cfbbapmcj encounterAbdul QadirFPG NephrologyStart: 04-20-2022(INJECTION) INJECTIONAbdul QadirFPG NephrologyStart: 04-20-2022 End: 21-44-3252kqtpihdlijHfunx Joyce Other [employer] Other Start: 14-78-3367Hwdzrifwl encounterAbdul QadirFPG NephrologyStart: 04-20-2022 End: 04-38-1281Ycmzsux encounter procedureDO Eusebio Olivares Work Phone: [facility]-Lab Main CampusStart: 04-09-2022 End: 17-61-7948Wuzjkvmdd department patient visitDO Eusebio Olivares Work Phone: [facility]-Emergency RoomStart: 04-04-2022 End: 49-82-1224vtvguznrdtDzam Magalis Other [facility] [employer] Other Start: 55-03-5245Tehgnyuas encounterAziz BakhousFPG NephrologyStart: 03-29-2022 End: 95-73-9285nudjrwrnhsNdpnq Joyce Other [place] [employer] Other Start: 17-69-6657Cknmcu outpatient visit 15 minutes Angel QadirFPG NephrologyStart: 90-44-4643Ijptpcnfv encounterAbdul QadirFPG NephrologyStart: 03-14-2022 End: 47-58-2257erkrabhqooXlvaq Joyce Other [facility] [employer] Other Start: 58-88-4159Tylpeipla encounterAbdul QadirFPG NephrologyStart: 03-13-2022 End: 91-51-0161Lnmlbig encounter procedureDO Eusebio Ball Work Phone: [facility]Start: 03-09-2022 End: 59-56-3858Hdvapax encounter procedureDO Eusebio Ball Work Phone: [facility]-Lab [facility] SystemStart: 20-98-7421Ul RenewalBenjamin E Ball Work Phone: [phone]-Gthtl [facility] DO Work Phone: Start: 12-25-2021 End: 37-14-5706Edxwhaq encounter procedureDO Eusebio Ball Work Phone: [facility]-Lab Main CampusStart: 12-19-2021 End: 37-70-7363qwqyfxvnxwPkmut Joyce Other [place] [employer] Other Start: 55-30-9624Cwyesb outpatient visit 25 minutes Angel QadirFPG NephrologyStart: 60-86-4320Ppallcqhkg RecurringDO Eusebio Olivares Work Phone: [facility]-Cardiac Rehabilitation Start: 27-29-3711Mw RenewalBenjajessica Olivares Work Phone: [phone]-Rsjce [facility] [address] DO Work Phone: Start: 49-13-6875vcduhtngfgBI ADILSON VO Facility:N0Jylxw: 72-86-2087Kndndsufobxc care manage srvc 7 day discharge Eusebio Olivares Work Phone: [phone]-Cihfh [facility] DO Work Phone: Start: 11-08-2021 End: 89-59-0194feqzdjqttzBmafl Joyce Other [employer] Other Start: 86-07-6620Prrxtv outpatient new 45 minutesAbdul QadirFPG NephrologyStart: 11-07-2021 End: 01-59-6599giudaemggjTumck Joyce Other [employer] Other Start: 65-06-0852Avjkhrxoa encounterAbdul QadirFPG NephrologyStart: 10-23-2021 End: 64-24-1763yhoqxrtpsyUL BENJAMIN BALLFacility:G4Exbjy: 10-02-2021 End: 90-68-9880lsesjndwluKSGIGRSJE SINGHFacility:[facility] Campustart: 10-01-2021 End: 73-64-1497Bzmrwtfbx department patient visitJAMES W SAUTOFacility:[facility] Procedures DateProcedureProcedure DetailPerforming ClinicianStart: 56-35-9033Ah angiography chest w/contrast/noncontrastGuilherme Lucas Mcdonnell MD Work Phone: Start: 30-15-0967Bllzm chest X-rayBenamy Olivares DO Work Phone: Start: 90-03-2512Jurzs chest X-rayBenjamin Ball DO Work Phone: Start: 29-54-0254Xmlm transthorc r-t 2d w/wo m-mode rec f-up/lmtdWilliam S Jason DO Work Phone: Start: 14-28-0281Ubrzrefutvvnopz of arteriovenous fistulaBenjamin Ball DO Work Phone: Start: 16-97-2867PP Closure Device Placement 0Benjamin Ball DO Work Phone: Start: 07-42-4320JU FFR/IFR Initial VesselBenjamin Ball DO Work Phone: Start: 97-32-7597FB LHC & COR AngioBenjamin Ball DO Work Phone: Start: 64-95-0659XH Stent 1st Vessel LAD DESBenjamin Ball DO Work Phone: Start: 24-43-6165Xhtflmbs Ball DO Work Phone: Start: 60-52-6846Dhvdo chest X-rayBenjamin Ball DO Work Phone: Start: 53-02-0689MK of abdomen and pelvis without contrastBenjamin Ball DO Work Phone: Start: 56-68-9833MR of head without contrastBenjamin Ball DO Work Phone: Start: 06-19-0114Skxwi chest X-rayBenjamin Ball DO Work Phone: Start: 42-09-3953Ybkkhtyp identified in Blood by CultureBenjamin Ball DO Work Phone: Start: 44-41-5575Bkrdtpgguar Panel (PCR)Eusebio Ball DO Work Phone: Start: 21-91-8903MK of chest without contrastBenjamin Ball DO Work Phone: Start: 68-47-0738Vqooldhj tomography of abdomen and pelvis with contrastBenjamin Ball DO Work Phone: Start: 10-14-1995Lqrsm chest X-rayBenjamin Ball DO Work Phone: Start: 81-35-8061Grsjiyzq identified in Blood by CultureBenjamin Ball DO Work Phone: Start: 09-15-2024 End: 01-72-6980Zcrek nucleic acid assayBenjamin Ball DO Work Phone: Start: 52-75-2103Yxtvpwlo identified in Blood by CultureBenjamin Ball DO Work Phone: Start: 12-78-3986Gyabl nucleic acid assayBenjamin Ball DO Work Phone: Start: 33-65-0406Hpapoxnl Ball DO Work Phone: Start: 21-31-5319Nxmab nucleic acid assayBenjamin Ball DO Work Phone: Start: 85-37-5815Dxtxg chest X-rayBenjamin Ball DO Work Phone: Start: 27-93-8192Omzrxxrj identified in Blood by CultureBenjamin Ball DO Work Phone: Start: 74-99-9440Ckmtuzry Ball DO Work Phone: Start: 47-65-4399Bbavh chest X-rayBenjamin Ball DO Work Phone: Start: 60-90-7981NKNVE-19 / FLU A/B / RSV [place] [place] Donna Shaw SLOT AMBASSADOR Work Phone: Start: 08-17-2024 End: 83-06-1646Xjrsx nucleic acid assayBenjamin Ball DO Work Phone: Start: 24-46-4240Exwjo chest X-rayBenjamin Ball DO Work Phone: Start: 11-18-2025Wbmttnpg identified in Blood by CultureBenjamin Ball DO Work Phone: Start: 22-42-9239Swdoegve Ball DO Work Phone: Start: 42-78-4931Ksrqvdqhwoa [Units/volume] in Serum or PlasmaCarmen Rowland MD Work Phone: Start: 52-73-6935Mmbog culture for bacteria, including anaerobic screenDO [employer] Work Phone: Start: 29-81-3901QSZH-CoV-2, Influenza & RSV (PCR)DO [employer] Work Phone: Start: 07-81-6692Sxrja chest X-rayDO [employer] Work Phone: Start: 85-81-4238Mmbin culture for bacteria, including anaerobic screenDO [employer] Work Phone: Start: 91-25-1560Rxpjuigmtak Panel (PCR)DO [employer] Work Phone: Start: 53-07-5154LPHM-CoV-2, Influenza & RSV (PCR)DO [employer] Work Phone: Start: 02-28-1933Ifxrz chest X-rayDO [employer] Phone: Start: 40-41-6071Xhhfomralbhzy fistulizationDO [employer] Work Phone: Start: 52-05-5719DS Fistulogram/TLA Stent (Left)DO [employer] Work Phone: Start: 79-35-2512Ydcqn chest X-rayDO [employer] Work Phone: Start: 58-41-0532Bhknszaqrxdia metabolic panelKishore Forte SLOT AMBASSADOR Work Phone: Start: 12-30-0011Eswazlyqvsjldls of arteriovenous fistulaDO [employer] Work Phone: Start: 41-09-9928Dteufiq of placement of stent for coronary artery diseaseStatus post insertion of drug eluting coronary artery stentWilandry Gomez DO Work Phone: Start: 38-27-1193Gdihlnm of placement of stent for coronary artery diseaseMohamad Crow MDStart: 89-10-9184Jjtcadqygtiuvcu of arteriovenous fistulaDO Eusebio [employer] Phone: Start: 50-70-5911HX Fistulogram/TLA Stent (Left)DO E[employer]io [employer] Phone: Start: 94-88-2260Kcupsryrmvlkept of arteriovenous fistulaDO Eusebio [employer] Phone: Start: 78-19-5830DZ Fistulogram/TLA Stent (Left)DO [employer] Phone: Start: 53-35-7634Bafuhfjoykcvrdp of arteriovenous fistulaDO Eusebio [employer] Phone: Start: 82-50-4787Dzrvvvrphvymiai of arteriovenous fistulaDO Eusebio [employer] Phone: Start: 83-49-8453TW Stent 1st Vessel RCA DESDO Eusebio [employer] Work Phone: Start: 93-57-4509Wsbjjshvcikwp fistulizationDO Mickey Gr Work Phone: Start: 84-76-1521RK Fistulogram/TLA Stent (Left)DO Mickey Gr Work Phone: Start: 79-51-5192PT Fistulogram/TLA Stent (Left)DO Eusebio [employer] Phone: Start: 79-65-6034Aerqwigwopeytvq of arteriovenous fistulaDO Eusebio [employer] Phone: Start: 29-48-4556Iwnwz chest X-rayDO Zeus Bradley Work Phone: Start: 60-24-0671Gsdgcesprkabu fistulizationDO E[employer]io [employer] Phone: Start: 17-73-3702Iejkdipwtd (US) doppler flow mapping of vein of upper limbDO Eusebio [employer] Phone: Start: 74-40-4476Ehtdm chest X-rayDO Eusebio [employer] Phone: Start: 76-86-3982AS of head without contrastDO [employer] Work Phone: Start: 03-94-3402ALLY-CoV-2, Influenza & RSV (PCR)DO [employer] Work Phone: Start: 60-41-4319Rmiec chest X-rayDO [employer] Work Phone: Start: 55-71-3776Nbjei chest X-rayDO [employer] Work Phone: Start: 54-53-9971Aylbv chest X-rayDO [employer] Work Phone: Start: 13-61-0843Lyqhu culture for bacteria, including anaerobic screenDO [employer] Work Phone: Start: 26-00-1697ZNUQ Antigen (LFIA)DO [employer] Work Phone: Start: 68-49-3650Heut marrow samplingDO [employer] Work Phone: Start: 58-09-8609Blrj energy X-ray absorptiometryDO [employer] Work Phone: Start: 13-79-2769Xkedl chest X-rayDO [employer] Work Phone: Blood culture for bacteria, including anaerobic screen DO [employer] Work Phone: Cardiac [email or web address] Work Phone: Depression screeningMattmolly Mendoza Other History of placement of stent for coronary artery diseaseStatus post insertion of drug eluting coronary artery stentBenjamin E [employer] Work Phone: History of placement of stent for coronary artery diseaseStatus post insertion of drug eluting coronary artery stentWilliam S Jason DO Work Phone: History of placement of stent for coronary artery diseaseStatus post insertion of drug eluting coronary artery stentWilliam S Jason DO Work Phone: History of placement of stent for coronary artery diseaseStatus post insertion of drug eluting coronary artery stentWilliam S Jason DO Work Phone: History of placement of stent for coronary artery diseaseStatus post insertion of drug eluting coronary artery stentBrianna Gomez DO Work Phone: History of placement of stent in anterior descending branch of left coronary arteryHistory of placement of stent in LAD coronary arteryDO Eusebio [employer] Work Phone: LT knee scopePatrick [employer] Operative procedure on kneeBenjamin E Marshall Work Phone: Placement of stent in cardiac conduitPatrick SHERIFF Surgical procedure on eye properBenjamin E Marshall Work Phone: VasectomyBenjamin E Marshall Work Phone: VasectomyPatrick [employer] NEGATED: Highlighted row has not occurred!Total colonoscopyBenjamin E [employer] Work Phone: Plan of Treatment DateCare ActivityDetailAuthorStart: 17-90-0498CFD patients and/or patients aged 60+ years (1 - 1-dose 60+ series)RSV patients and/or patients aged 60+ years (1 - 1-dose 60+ series)[facility] Start: 30-21-2907Hppdhx Vaccines (1 of 2)Zoster Vaccines (1 of 2)[facility]: 28-11-7054EotjmukwsosmdvlaYspokzmfeztlfhQrjorwtbnz [facility]Start: 11-30-2025 End: 15-19-1542Zrruplq encounter krhoawkvg18/14/2026 10:20 AM EDT Office Visit [place] [id number] [facility] [address] [place] [address] Brianna Gomez DO [address] [facility] [place] [address] [facility]: 06-29-2025 End: 63-82-7960Vxjxsnr encounter utagjjwnv82/11/2025 8:30 AM EST Office Visit [place] [address] [facility] [address] [place] [address] Tiana Salvador, GUT SNATCHER-[employer]ICY SPECIALIST [address] [facility] [address] [place] [address] [facility] 06-01-2025 End: 01-53-9938QpboiamzjMagruder Memorial Hospitaltart: 86-12-6204IrwprgezsMagruder Memorial Hospitaltart: 96-35-7782Xbafqyqf admissionMagruder Memorial Hospitaltart: 77-28-8154Elrvj chest X-rayXR chest 2V*[facility]: 47-79-4023NJ Chest 2 ViewsCorey Hospital Start: 05-27-2025 End: 25-17-9916Sptkamf encounter qlbkylyzm53/09/2025 10:40 AM EDT Office Visit [place] [id number] [facility] [address] [place] [address] Brianna Gomez DO [address] [facility] [place] [address] [facility]: 15-96-8962Qviqhfvi admission [facility]: 27-90-3334ZawkrbaefMagruder Memorial Hospitaltart: 53-78-4361FJWCU-19 Vaccine ( season)COVID-19 Vaccine ( season)[facility]: 91-70-9558XPRVX-19 Vaccine ( season)COVID-19 Vaccine ( season)[facility]: 70-10-6646Xzxoqmzex vaccinationUnMercy Health [facility]sburg Hospital: 68-06-7356LcimprpleMagruder Memorial Hospitaltart: 04-01-2025 Ultrasonography of arteriovenous fistulaUS AV FistulaMagruder Memorial Hospitaltart: 02-02-2406MF AV fistulaMagruder Memorial Hospitaltart: 96-13-6606Zdjhhnysq vaccinationInfluenza Vaccine (#1)[facility]: 32-62-0506Czfjjafukg measurementCreatinine LevelUnMercy Health Perrysburg Hospital: 69-04-8674Qvbxpchuh measurementPotassium Level [facility]: 29-61-4704FpjunpqjdbqmgeznLpvbrlhthpfggc [facility]: 30-03-3983Rimdppg stimulating hormone measurementTSH LevelUnMercy Health Perrysburg Hospital: 21-33-8744BkfcjzeebMagruder Memorial Hospitaltart: 10-22-5621Svrglrbn admissionMagruder Memorial Hospitaltart: 01-21-2025 End: 35-25-6914DhhpbbsbsMagruder Memorial Hospitaltart: 92-70-7888Oobab chest X-rayXR chest 2V*[facility]: 77-08-0410EU Chest 2 ViewsMagruder Memorial Hospitaltart: 11-24-2024 End: 20-20-4291Lrxapvm encounter bkthwfxno96/08/2025 11:20 AM EDT Office Visit [facility] [address] [place] [address] Brianna Gomez DO [address] [place] [address] [facility]: 11-02-2024 End: 82-83-6999YvonxyqywMagruder Memorial Hospitaltart: 69-56-5768Prekanms to nephrologistMagruder Memorial Hospitaltart: 15-72-9405SsnqpbgviMagruder Memorial Hospitaltart: 71-19-1600Evuvmusl admissionMagruder Memorial Hospitaltart: 01-11-7426FE Abdomen and Pelvis WO contrastMagruder Memorial Hospitaltart: 91-15-8408FI of abdomen and pelvis without contrastCT abdomen pelvis wo [facility]: 01-47-1178BF of head without contrastCT head/brain wo [facility]: 71-76-7151MK Unspecified body region WO contrastMagruder Memorial Hospitaltart: 68-81-0246Oyysq chest X-rayXR chest 1V portableMagruder Memorial Hospitaltart: 20-81-7004LH Chest Single viewMagruder Memorial Hospitaltart: 07-90-5701HqqseqdclMagruder Memorial Hospitaltart: 11-01-2024 Bacteria identified in Blood by CultureBlood CultureMagruder Memorial Hospitaltart: 46-94-2247HqbnonyywypmHcrggacwtMagruder Memorial Hospitaltart: 09-17-2024 End: 66-26-3890OooqpamlrMagruder Memorial Hospitaltart: 21-12-3764Smxifctiyfzv of Other New Technology Therapeutic Substance into Mouth and Pharynx, External Approach, [employer] 5Introduction of Other New Technology Therapeutic Substance into Mouth and Pharynx, External Approach, [employer] 5 [facility]: 88-70-3894Injdjnbq to infectious diseases physicianMagruder Memorial Hospitaltart: 32-18-4200Ngwmdtjr admissionMagruder Memorial Hospitaltart: 43-33-3419Kextztjwy culture of sputumMagruder Memorial Hospitaltart: 93-10-2794Hjpdorix to paper cup machine operator [facility]: 42-82-7553JzggvqtsuMagruder Memorial Hospitaltart: 09-15-2024 End: 39-95-2964TjmwjssovMagruder Memorial Hospitaltart: 42-59-2622Pqgmyqpf identified in Blood by CultureBlood CultureCorey Hospital Start: 94-72-5324Gqdmbbhh screeningDiabetes: Retinopathy ScreeningEast [facility] HospitalStart: 07-41-7496TflqkfpzoMagruder Memorial Hospitaltart: 93-92-4026Hfumajdx identified in Blood by CultureBlood CultureMagruder Memorial Hospitaltart: 79-13-3678Qlcgnvmezaw of Urinary Filtration, Intermittent, Less than 6 Hours Per DayMagruder Memorial Hospitaltart: 08-28-2024 Microbial culture of sputumMagruder Memorial Hospitaltart: 08-28-2024 Hospital admissionMagruder Memorial Hospitaltart: 35-81-0026Bvntvxnn to nephrologistMagruder Memorial Hospitaltart: 08-28-2024 End: 53-74-9908RymyaiiadMagruder Memorial Hospitaltart: 05-35-4294Tbgdndjv identified in Blood by CultureBlood CultureCorey Hospital Start: 08-13-2024 End: 52-74-4301Dhmutfy encounter unifzolrv06/26/2024 9:20 AM EST Office Visit [facility] [address] [facility] [address] [place] [address] David Ferrell, TONYM [address] [address] [facility]IATRYStart: 20-34-9508Xsirmtqz admission [facility]: 60-03-2699Vbnsncrb to paper cup 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 operator [facility]: 06-11-2024 End: 97-14-0351Jpkleuo encounter njtnstxgy41/24/2024 9:50 AM EDT Office Visit [facility] [address] [facility] [address] [place] [address] Brianna Gomez DO [address]03 [facility], [address] [place] [address] [facility]Start: 06-04-2024 End: 83-02-1431Neogzjf encounter zgclarhuy10/17/2024 9:20 AM EDT Office Visit [facility] [address] [facility] [address] [place] [address] David Ferrell, DPM [address] [facility] [address] [place] [address] Type 2 diabetes mellitus without complication, with long-term current use of insulin (CMS/HCC) (Primary Dx); Pain due to onychomycosis of toenails of both feet; Hav (hallux abducto valgus), leftNOMS CI PODIATRYComment on above:Type 2 diabetes mellitus without complication, with long-term current use of insulin (CMS/HCC) (Primary Dx); Pain due to onychomycosis of toenails of both feet; Hav (hallux abducto valgus), leftStart: 96-66-8425DXSEZ-19 Vaccine ( season)COVID-19 Vaccine ( season)[facility] Start: 41-61-7775Xmcozjakf [facility] CenterStart: 55-76-2277Kwyra chest X-rayXR chest 2V*[facility]: 47-37-4891Ctlrtgko identified in Blood by CultureMagruder Memorial Hospitaltart: 41-55-4382Ckgxu culture for bacteria, including anaerobic screen Blood CultureMagruder Memorial Hospitaltart: 15-64-0247Cviafhuwnwr of Urinary Filtration, Intermittent, Less than 6 Hours Per DayPerformance of Urinary Filtration, Intermittent, Less than 6 Hours Per DayMagruder Memorial Hospitaltart: 69-98-3378Zavybjaa to nephrologMcKitrick Hospitaltart: 03-09-2024 End: 09-63-8804ZrcnjcqbcMagruder Memorial Hospitaltart: 40-32-7290Rbmvicph admissionMagruder Memorial Hospitaltart: 16-31-3044GfizprihnMagruder Memorial Hospitaltart: 08-64-5564NqqukguqrMagruder Memorial Hospitaltart: 03-02-2024 End: 01-17-2819MkgqtlfzqMagruder Memorial Hospitaltart: 58-67-5765Ojqrfnol identified in Blood by CultureMagruder Memorial Hospitaltart: 03-01-2024 Blood culture for bacteria, including anaerobic screenBlood CultureMagruder Memorial Hospitaltart: 98-23-2944Arkeqvxbdqm of Urinary Filtration, Intermittent, Less than 6 Hours Per DayPerformance of Urinary Filtration, Intermittent, Less than 6 Hours Per DayMagruder Memorial Hospitaltart: 88-07-6335YtvxekecrMagruder Memorial Hospitaltart: 55-25-8450Kzitbcgm to nephFairfield Medical Centertart: 26-12-0693Miyvnarl admission [facility]: 31-72-1591YcdhpawdmMagruder Memorial Hospitaltart: 66-26-4427Rxdti chest X-rayXR chest 2V*[facility]: 15-22-0900EC Chest 2 ViewsMagruder Memorial Hospitaltart: 64-75-3654XtlqqlrbvMagruder Memorial Hospitaltart: 11-26-2023 End: 95-85-3453KsrdlnbbbMagruder Memorial Hospitaltart: 28-06-8607PthywysdxMagruder Memorial Hospitaltart: 10-24-2023 End: 20-20-3445Rdlbrgk encounter /07/2024 3:10 PM EST Office Visit [facility] [address] [place] [address] David Ferrell, SHAMAR [address] [facility] [address] [place] [address] [facility]RYStart: 10-15-2023 End: 04-54-4393Oygojke encounter vwzokxbcf97/27/2024 1:15 PM EST Office Visit [facility] [address] [place] [address] Angelina Martinez MD [address] [place] [address] [facility] OPHTStart: 06-76-4755XchewzrjwuvtjvkhGwmgxzfktaadpy [facility] HospitalStart: 10-33-2083Ucqxncj referralAshtabula County Medical Center Work Phone: Start: 09-30-2023 End: 33-54-3172YQ Shoulder - left WO contrastMR shoulder left wo IV contrast Imaging Routine Internal derangement of left shoulder Expected: 09/30/2023 (Approximate), Expires: 09/30/2024[facility] Work Phone: Comment on above:Expected: 09/30/2023 (Approximate), Expires: 09/30/2024Start: 09-30-2023 End: 31-72-1790Vodolbk encounter wzeqfaofp81/12/2024 1:00 PM EST Office Visit [facility] [address] [place] [address] Nelida Carrington, SLOT AMBASSADOR [address] [place] [address] [facility]THOPA[facility]ICSStart: 95-16-3296UUB, Provider: Brianna Gomez, Status: Pen, Time: 9:50 AMFUV, Provider: Brianna Gomez, Status: Pen, Time: 9:50 AMJeff[facility] DO Work Phone: Start: 77-13-1779GxqqhelflCorey Hospital Start: 77-28-1259Danqznsl to cardiologistMagruder Memorial Hospitaltart: 62-84-9573Oaqjuqsk to nephrologistMagruder Memorial Hospitaltart: 04-67-8055Fxrnhxcc admissionMagruder Memorial Hospitaltart: 08-18-2023 [facility]: 47-84-5630Rsegustcuourcdx of arteriovenous fistulaUS AV FistulaMagruder Memorial Hospitaltart: 54-63-0552NZ AV fistulaMagruder Memorial Hospitaltart: 06-17-2023 [facility]: 16-96-4334Skxgtsqszazaaid of arteriovenous fistulaUS AV FistulaMagruder Memorial Hospitaltart: 91-16-3578BH AV fistulaMagruder Memorial Hospitaltart: 40-07-0691IJKSS- 19 Vaccine ( season)COVID-19 Vaccine ( season)[facility] HospitalStart: 33-53-2385BlhuzaikaMagruder Memorial Hospitaltart: 57-99-1339FNS, Provider: Brianna Gomez, Status: Pen, Time: 9:30 AMFUV, Provider: Brianna Gomez, Status: Pen, Time: 9:30 AMJeff[facility] [address] DO Work Phone: Start: 02-04-2023 End: 90-00-4933XqilydqcuMagruder Memorial Hospitaltart: 90-28-4025OUSCERPGS, Provider: Brianna Gomez, Status: Pen, Time: 11:00 AMSURGNOVANT [facility], Provider: Brianna Gomez, Status: Pen, Time: 11:00 AMJeff[facility] Healthcare [facility]-[place] [address] DO Work Phone: Start: 28-90-3891NelvzyecqCorey Hospital Start: 69-91-2516Fsfdvwjr admissionMagruder Memorial Hospitaltart: 06-27-3303Ttivaqec to cardiologistMagruder Memorial Hospitaltart: 84-23-7219RwlfobqcsMagruder Memorial Hospitaltart: 38-47-0818JcgxkemihMagruder Memorial Hospitaltart: 60-54-1266NWE, Provider: Janine Gonzalez, Status: Pen, Time: 9:45 AMFUV, Provider: Janine Gonzalez, Status: Pen, Time: 9:45 AMSandstone Critical Access Hospitalusky [address] DO Work Phone: Start: 14-37-8822KjytxnereCorey Hospital Start: 27-05-6962DrnkmyeftMagruder Memorial Hospitaltart: 11-28-2022 Ultrasonography of arteriovenous fistulaUS AV FistulaMagruder Memorial Hospitaltart: 97-50-7930JV AV fistulaMagruder Memorial Hospitaltart: 97-46-1124GWZGMGTNT, Provider: Brianna Gomez, Status: Pen, Time: 2:00 PM SURGNON, Provider: Brianna Gomez, Status: Pen, Time: 2:00 PMLong [facility] 250 DO Work Phone: Start: 18-92-4440LJ *Percutaneous Coronary Interven(PCI) (Not Applicable)CL *Percutaneous Coronary Interven(PCI) (Not Applicable)[facility]: 69-97-3736Chxap chemistry [facility]: 90-86-1684MzwhivwhdMagruder Memorial Hospitaltart: 89-15-9599Iunjg chemistryMagruder Memorial Hospitaltart: 99-91-2880JnbtlguaeLancaster Municipal Hospital CenterStart: 54-10-1564Emico chemistry [facility]: 91-95-5881XkbmfzhnuMagruder Memorial Hospitaltart: 88-21-7232Rvofz chemistryMagruder Memorial Hospitaltart: 50-55-3400TlcypeyynMagruder Memorial Hospitaltart: 91-30-8178Inaqmxqj kinase [Enzymatic activity/volume] in Serum or PlasmaCorey Hospital Start: 69-79-2500Qdwouofv I.cardiac [Mass/volume] in Serum or Plasma by High sensitivity methodMagruder Memorial Hospitaltart: 14-45-7159Tydch [facility] Centertart: 10-03-2022 End: 20-48-8018LqcoafkmnMagruder Memorial Hospitaltart: 43-68-8842Uaynwzwi admissionMagruder Memorial Hospitaltart: 75-39-1204Gcnrkmuu to cardiologistMagruder Memorial Hospitaltart: 04-95-7291Khikpola to nephrologistMagruder Memorial Hospitaltart: 84-93-7118RvrqwdeosMagruder Memorial Hospitaltart: 43-12-6453Csskl chest X-rayXR chest 1V portableMagruder Memorial Hospitaltart: 69-52-4952TI Chest Single viewMagruder Memorial Hospitaltart: 97-03-2433JuvnalinsMagruder Memorial Hospitaltart: 29-69-4067QsyfizbfkMagruder Memorial Hospitaltart: 41-32-6526Zwqvavupgj (US) doppler flow mapping of vein of upper limbUS venous mapping BI [facility]: 74-80-1049NG Upper extremity vein - bilateral [facility]: 66-49-2467JyvycvlouMagruder Memorial Hospitaltart: 36-67-9881SXJVHXAWOI ASSESSMENTDEPRESSION ASSESSMENTMercy Health Tiffin Hospitaltart: 20-19-6375Mbqjx [facility] Centertart: 82-61-1559Divvr [facility] Centertart: 08-17-2022 [facility]: 91-31-6205Gwiuc [facility] Centertart: 60-82-9017ZaqxqjutfLancaster Municipal Hospital CenterStart: 87-19-4384Jbmhg [facility] CenterStart: 08-15-2022 [facility]: 13-58-2960Hifww [facility] Centertart: 24-90-9412ZiuwcfacyLancaster Municipal Hospital CenterStart: 56-97-2353CvhirkzruMagruder Memorial Hospitaltart: 67-45-9717Ynofpgav admission [facility]: 00-65-2588Oyfzapwb to paper cup 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 operator [facility]tart: 98-07-2076SsiyyojnpMagruder Memorial Hospitaltart: 48-69-3062PD of head without contrastCT head/brain wo [facility]tart: 09-47-0918KO Unspecified body region WO contrast [facility]: 05-18-2022 End: 21-71-6449NqwwciwsmMagruder Memorial Hospitaltart: 19-14-8968Xaye marrow samplingMagruder Memorial Hospitaltart: 41-87-1989EwhyvpiadAshtabula County Medical Center Work Phone: Start: 82-35-3423Dsnzdbf encounter procedureRegistered ClinicalAshtabula County Medical Center-Lab Main CampusStart: 04-19-2022 Influenza vaccinationINFLUENZA (#1)[facility] Hospitaltart: 69-29-2284Lxtro chest X-rayXR chest 1V portableMagruder Memorial Hospitaltart: 04-09-2022 End: 89-63-7533Xpsrsekjg department patient visitDeparted EmergencyAshtabula County Medical Center-Emergency RoomStart: 89-25-1366CYC, Provider: Brianna Gomez, Status: Pen, Time: 11:10 AM-[facility] 250 DO Work Phone: Start: 28-63-6669QLGINCJXNO ASSESSMENTDEPRESSION ASSESSMENTMercy Health Tiffin Hospitaltart: 28-16-1212WOTAI SCREENLIPID SCREENMercy Health Tiffin Hospitaltart: 40-83-9639XZY Vaccines (1 - 3-dose standard series)HPV Vaccines (1 - 3-dose standard series)[facility]: 2007 DTaP/Tdap/Td Vaccines (1 - Tdap)DTaP/Tdap/Td Vaccines (1 - Tdap)[facility]: 11-14-5891Zwinafswo A Vaccines (1 of 2 - Risk 2- dose series)Hepatitis A Vaccines (1 of 2 - Risk 2-dose series)[facility]: 97-83-6854Hrrlumxtk B Vaccines (1 of 3 - 19+ 3-dose series)Hepatitis B Vaccines (1 of 3 - 19+ 3-dose series)[facility]: 80-57-8042Pcrujpqisxte Vaccine: Pediatrics and At-Risk Adult Patients (1 of 2 - PCV)Pneumococcal Vaccine: Pediatrics and At-Risk Adult Patients (1 of 2 - PCV)[facility]: 96-77-9528Yvzlp microalbumin profileDTAP,TDAP,TD (1 - Tdap)[facility] Hospitaltart: 2004 Urine screening for proteinDiabetes: Urine Protein ScreeningUnMercy Health [facility]sburg Hospital: 23-08-4850Ionwgj Vaccines (1 of 2)Zoster Vaccines (1 of 2) [facility]: 90-64-7382HJVDVEQVY C SCREENINGHEPATITIS C SCREENINGMercy Health Tiffin Hospitaltart: 97-83-2610Leogzcwcr C screeningHepatitis C ScreeningUnMercy Health Perrysburg Hospital: 17-11-9033EOV SCREENINGHIV SCREENINGMercy Health Tiffin Hospitaltart: 77-91-1380Xcyayghsw vaccinationVaricella Vaccines (1 of 2 - 13+ 2-dose series)[facility]: 53-58-6099Bnwuhijs foot examinationDiabetes: Foot ExamUnMercy Health [facility] Hospital: 02-56-6674GFSPQJAGXLFJ (1 - PCV)PNEUMOCOCCAL (1 - PCV)[facility]: 26-64-7968Hmbnytpcwhas Vaccine: Pediatrics (0 to 5 Years) and At- Risk Patients (6 to 64 Years) (1 of 2 - PCV)Pneumococcal Vaccine: Pediatrics (0 to 5 Years) and At-Risk Patients (6 to 64 Years) (1 of 2 - PCV)[facility]: 80-40-0654UCDOR-19 Vaccine (#1)COVID-19 Vaccine (#1)[facility]: 19-42-5993UYG Vaccines (1 of 1 - Standard series)MMR Vaccines (1 of 1 - Standard series)[facility]: 88-77-8118ILWAH-19 VACCINE (#1)COVID-19 VACCINE (#1)[facility]: 58-81-6621Mvbudwrddf measurementCreatinine LevelUnMercy Health Perrysburg Hospital: 96-37-8615Ughvtzodhzstxz vitamin b-12Vitamin B-12 [facility]: 98-06-8863Cyaphbnj: Celiac Disease ScreeningDiabetes: Celiac [facility]ening[facility] Start: 82-12-3494Qokpvueflq A1c measurementDiabetes: Hemoglobin O9XNdbcmjedupChillicothe VA Medical Center: 42-27-6401DKJPFLGID B (1 of 3 - 3-dose series) HEPATITIS B (1 of 3 - 3-dose series)[facility]: 46-15-4829TOW screeningHIV ScreeningChillicothe [facility] Medical Center: 10-65-3392Maxeq panelLipid PanelChillicothe VA Medical Center: 1985Medicare Annual Wellness VisitMedicare Annual Wellness Visit (AWV)[facility]: 03-91-9028Gncroooek measurementPotassium LevelUnSuburban Community Hospital & Brentwood HospitalAnion gap measurementCorey Hospital Basophils [#/volume] in Blood by Automated countCorey HospitalBasophils/100 leukocytes in Blood by Automated countCorey HospitalBlood chemistryCorey HospitalBone marrow samplingAshtabula County Medical Center Work Phone: Calcium [Mass/volume] in Serum or [facility] HospitalCarbon dioxide, total [Moles/volume] in Serum or Plasma Corey HospitalChloride [Moles/volume] in Serum or Plasma Corey HospitalComprehensive metabolic 1999 panel - Serum or [facility] HospitalComprehensive metabolic 1999 panel - Serum or [facility] HospitalComprehensive metabolic 1999 panel - Serum or [facility] HospitalCreatine kinase [Enzymatic activity/volume] in Serum or [facility] Creatine kinase [Enzymatic activity/volume] in Serum or PlasmaCorey HospitalCreatine kinase MB isoenzyme/total creatine kinase ratio measurementCorey HospitalCreatine kinase MB isoenzyme/total creatine kinase ratio [facility] SystemCreatine kinase.MB [Mass/volume] in Serum or PlasmaCorey Hospital Creatine kinase.MB [Mass/volume] in Serum or [facility] HospitalCreatinine and Glomerular filtration rate.predicted panel - Serum, Plasma or BloodFirelands Regional Medical CenterCT Abdomen and Pelvis WO contrast Corey HospitalDXA Skeletal system.axial Views for bone densityAshtabula County Medical Center Work Phone: Eosinophils [#/volume] in Luther[facility] HospitalEosinophils/100 leukocytes in Blood by Automated countCorey HospitalErythrocyte distribution width [Ratio] by Automated count Corey HospitalErythrocytes [#/volume] in BloodCorey HospitalGlucose [Mass/volume] in Serum or PlasmaCorey HospitalGlucose [Mass/volume] in Serum or PlasmaCorey HospitalGlucose [Mass/volume] in Serum or PlasmaCorey HospitalGlucose [Mass/volume] in Serum or PlasmaCorey HospitalGlucose [Mass/volume] in Serum or PlasmaCorey HospitalGlucose measurement estimated from glycated hemoglobin Corey HospitalHematocrit [Volume Fraction] of BloodCorey HospitalHemoglobin [Mass/volume] in BloodCorey HospitalHemadera community hospital A virus antibody, IgM typeCorey HospitalHemadera community hospital B core antibody measurement, IgM [facility] hospital B virus surface Ag [Presence] in Serum or Plasma by Immunoassay Core[facility] HospitalHemadera community hospital C virus IgG Ab [Presence] in Serum or Plasma by ImmunoassayCorey HospitalHemadera community hospital C virus RNA [log units/volume] (viral load) in Serum or Plasma by HAO with probe detection Core[facility] HospitalHemadera community hospital C virus RNA [Units/volume] (viral load) in Serum or Plasma by HAO with probe detectionCorey HospitalLeukocytes [#/volume] corrected for nucleated erythrocytes in Blood by Automated counCorey HospitalLeukocytes [#/volume] in Blood Corey HospitalLymphocytes [#/volume] in Blood by Automated countCorey HospitalLymphocytes/100 leukocytes in Blood by Automated countCorey HospitalMCH [Entitic mass] by Automated countCorey HospitalMCHC [Mass/volume] by Automated count Corey HospitalMCV [Entitic volume] by Automated count Corey HospitalMeasurement of renal functionCorey HospitalMonocytes [#/volume] in Blood by Automated [facility] HospitalMonocytes/100 leukocytes in Blood by Automated countCorey HospitalNeutrophils [#/volume] in Blood by Automated count Corey HospitalNeutrophils/100 leukocytes in Blood by Automated [facility] HospitalNucleated erythrocytes [Presence] in Blood by Automated [facility]letown HospitalPatient EducationLancaster Municipal Hospital Ctr Work Phone: Patient referralLancaster Municipal Hospital Ctr Work Phone: Platelet mean volume [Entitic volume] in Blood by Automated [facility] HospitalPlatelets [#/volume] in Blood Corey HospitalPotassium [Moles/volume] in Serum or Plasma [facility] Hospitalodium [Moles/volume] in Serum or Plasma Corey HospitalTroponin I.cardiac [Mass/volume] in Serum or Plasma by High sensitivity methodCorey HospitalTroponin I.cardiac [Mass/volume] in Serum or Plasma by High sensitivity methodCorey HospitalUrea nitrogen [Mass/volume] in Serum or PlasmaCorey HospitalURINALYSIS, REFLEX MICROSCOPICURINALYSIS, REFLEX MICROSCOPIC Lab Routine Screening for genitourinary condition Ordered: 09/05/2022[facility] Work Phone: Comment on above:Ordered: 09/05/2022[facility] Immunizations Immunization DateImmunizationNotesCare LuogsnwaMjtmogja50-83-6998yhdhqwf, mumps and rubella virus vaccineDavid Ferrell DPM Work Phone: [facility] Payers DatePayer CategoryPayerPolicy [id number] Eligibility Medicare/Medicaid OrganizationANTHEM DUAL ADVANTAGE [id number] 2024Medicare (Managed Care) ANTH MEDICARE ADVANTAGE Member Subscriber Plan / Payer (Effective 2024- Present) Name: DebbiYoel Michelle Relation to Subscriber: Self Name: Yoel Tamayo Michelle Payer ID: Not on file Group ID: [id number] Type: Not on file Address: [address] [place] [id number] [id number] [id number] [id number] 2022Medicaid1.2.840.953047.1.13.159.2.7.3.174899.315 [id number] 2.16.840.1.278845.3.579.2.593 [id number] 2.16840.1.871614.3.579.2.55079-60-6019Ymxdvfb4767305 2.840.1.608815.3.57[id number] 2.840.1.241356.3.57[id number] 2.840.1.832575.3.579.[id number] 2.840.1.516861.3.579.[id number] 2.840.1.680608.3.579.2.34621-87-2960Geamjtg627268621 2.0.1.627484.3.579.2.83383-19-0863Dubqztp782023804 2.0.1.043646.3.579.2.98794-38-0742Wicpdkk632529031 2..1.796412.3.579.2.13632-15-1602Mtwrygu159729213 2..1.206933.3.579.2.23754-89-8778Ymuyeyb521672722 2.840.1.246351.3.579.2.48237-68-7336Beqmgof97817265 2.0.1.707960.3.579.2.13257-08-1255Ezoodyw6718174 2.840.1.269800.3.579.2.044164-85-8895Tfeahmw9388201 2.0.1.581699.3.579.2.227307-84-9218Ljptlgx7069956 2.840.1.813640.3.579.2.293588-47-7116Wlgvnev8166274 2.840.1.637226.3.579.2.323532-42-3760Hglynpo06000420 2..1.135279.3.579.2.390320-85-0977Augmmll356467715 2..1.303213.3.579.2.743554-32-0193Pifguyo723889495 2..1.214423.3.579.2.102323-91-0477Pzuxkib830783814 2..1.914856.3.579.2.222690-70-4414Ybhuyqo052246029 2..1.372113.3.579.2.772016-97-4161Bdfewdm006524052 2..1.575608.3.579.2.743666-42-1531Znxkfzh320236585 2...643687.3.579.2.017006-38-6452Yrmy Cross Blue [id number] 2..3.958458.081019 [id number] 1960Self-[id number] [id number] ..1.845023.3.579.2.984Shyeihn08684266 ..1.297688.3.579.2.531 Shkngrm38720777 2..1.651715.3.579.2.503Ymlgqek22962544 2..1.564740.3.579.2.559Nuzujvf04617431 2..1.276319.3.579.2.531 Kpxyeec29901961 2.16.840.1.246596.3.579.2.258Nnpqqsz39539298 2.16.840.1.369630.3.579.2.493Vkkjgqd07729273 2.16.840.1.326603.3.579.2.531 Chgqrpu76326612 2.16.840.1.598565.3.579.2.871Pbunuvc89348077 2.16.840.1.108446.3.579.2.382Qxuxrdk41491331 2.16.840.1.655323.3.579.2.531 Mffzmqe67262931 2.16.840.1.416278.3.579.2.978Ympribf67589498 2.16.840.1.800900.3.579.2.714Dvcpljy86748602 2.16.840.1.722738.3.579.2.531 Ymdpmbs71487953 2.16.840.1.015524.3.579.2.531 Social History DateTypeDetailFacilityStart: 08-15-2023 End: 80-53-6940Dplpbgx every day smokerCurrent every day smokerNogolden valley [facility] hospital Iterable Other Comment on above:3 cigs daily;1-2 Packs of cigarettes daily;medical;1 Pack of cigarettes daily;Start: 09-09-2023 End: 07-32-1675[facility]: [facility] End: 06-35-1576Lvbrtie smoking status NHISSmoker (finding)[facility] CenterStart: 16-04-9001Rto [facility] CenterStart: 10-02-2021 End: 15-12-2353Yarzjdj smoking status NHISSmokes tobacco dailyBrecksville Va [facility] Start: 10-02-2021 End: 45-85-0478Axkrath use and exposureSmokeless tobacco non-userMercy Health Tiffin Hospitaltart: 57-44-6196Duaifyl intakeEx-drinker (finding)[facility]: 03-50-6149Tpi Assigned At BirthNot on fileMercy Health Tiffin Hospitaltart: 08-13-2022 End: 45-25-7214Irizapm smoking status NHISCurrent Heavy tobacco smokerMagruder Memorial Hospitaltart: 07-14-2022 End: 29-65-5921Ecbkdzz smoking statusNeverExecutive Urology of [facility] SanduskyStart: 46-07-4619Jgktdfj of tobacco useCigarette Smoker [facility] HealthcareStart: 09-24-2023 End: 30-29-8327Woboooe intakeDeferNOMS HealthcareStart: 12-03-2023 End: 75-38-9946Kgyldxlqu beverage intakeLifetime non-drinker (finding)[facility] Work Phone: Start: 11-23-2023 End: 14-98-4233Wmyhcxhg to SARS-CoV-2 (event)Not sureEast Ohio Regional HospitalStart: 03-01-2024 End: 30-35-4540Nvhdrhm smoking status NHISNever smoked tobacco (finding) [facility]: 08-28-2024 End: 54-51-4078Toqgfrb smoking status NHISEx-smoker (finding)[facility]: 07-14-2022 End: 41-74-9929BdpCrem (finding)[facility] Hospitalt[facility]: 11-24-2024 End: 42-57-3637Vmodjnv use and exposureUser of smokeless tobaccoEast [facility] Regional Hospital Work Phone: Start: 07-59-9915Gbggitu CommentVapeEast [facility] Regional Hospital Work Phone: Start: 88-12-5622Cjyncmt Comment0 nicotine vaping [facility] Work Phone: Medical Equipment Procedure CodeEquipment CodeEquipment Original TextEquipment IdentifierDates [id number] FDAStart: 06-17-2023 Fistulogram()[id number] FDAStart: 06-17-2023 Fistulogram()[id number])[id number])[id number] FDAStart: 06-17-2023 Fistulogram()[id number])[id number])[id number] FDAStart: 06-17-2023 Fistulogram()[id number])[id number])[id number] FDAStart: 12-97-8052Hpoethtj or revision of arteriovenous fistula()[id number])[id number])[id number] FDAStart: 11-26-2023()[id number])[id number] FDAStart: 65-94-5046GX STENT VALENTIN FRONTIER 3.0 X 38FDAStart: 07-06-5738RB STENT VALENTIN FRONTIER 3.5 X 12FDA Start: 89-62-5498FR STENT VALENTIN FRONTIER 3.0 X 38FDAStart: 36-22-4186GH STENT VALENTIN FRONTIER 3.5 X 12FDAStart: 88-66-4501FV STENT VALENTIN FRONTIER 3.0 X 38FDA Start: 04-64-7937ZT STENT VALENTIN FRONTIER 3.5 X 12FDAStart: 14-22-4451BC STENT VALENTIN FRONTIER 3.0 X 38FDAStart: 64-26-9768MD STENT VALENTIN FRONTIER 3.5 X 12FDA Start: 61-63-1346OV STENT VALENTIN FRONTIER 3.0 X 38FDAStart: 31-49-6089DS STENT VALENTIN FRONTIER 3.5 X 12FDAStart: 78-50-9617MQ STENT VALENTIN FRONTIER 3.0 X 38FDA Start: 56-07-8019CS STENT VALENTIN FRONTIER 3.5 X 12FDAStart: 64-06-8253RA STENT VALENTIN FRONTIER 3.0 X 38FDAStart: 03-60-6051PO STENT VALENTIN FRONTIER 3.5 X 12FDA Start: 38-16-959852992067, 92895559Rpdam: 32-11-1290BC STENT VALENTIN FRONTIER 3.0 X 38FDAStart: 82-34-9042ZL STENT VALENTIN FRONTIER 3.5 X 12FDAStart: 81-23-0746QU STENT VALENTIN FRONTIER 3.0 X 38FDAStart: 26-71-9205TW STENT VALENTIN FRONTIER 3.5 X 12 FDAStart: 95-52-6538SS STENT VALENTIN FRONTIER 3.0 X 38FDAStart: 22-73-7317HA STENT VALENTIN FRONTIER 3.5 X 12FDAStart: 99-51-4708TM STENT VALENTIN FRONTIER 3.0 X 38FDA Start: 62-14-6517WK STENT VALENTIN FRONTIER 3.5 X 12FDAStart: 37-61-5758QE STENT VALENTIN FRONTIER 3.0 X 38FDAStart: 51-51-0842IB STENT VALENTIN FRONTIER 3.5 X 12FDA Start: 96-41-6968KK STENT VALENTIN FRONTIER 3.0 X 38FDAStart: 96-69-2962FY STENT VALENTIN FRONTIER 3.5 X 12FDAStart: 91-47-0244PT STENT VALENTIN FRONTIER 3.0 X 38FDA Start: 34-28-7570YW STENT VALENTIN FRONTIER 3.5 X 12FDAStart: 51-95-5576FJ STENT VALENTIN FRONTIER 3.0 X 38FDAStart: 68-82-4934PP STENT VALENTIN FRONTIER 3.5 X 12FDA Start: 59-13-2535TW STENT VALENTIN FRONTIER 3.0 X 38FDAStart: 81-95-3657RW STENT VALENTIN FRONTIER 3.5 X 12FDAStart: 45-44-7010LO STENT VALENTIN FRONTIER 3.0 X 38FDA Start: 69-76-5870OB STENT VALENTIN FRONTIER 3.5 X 12FDAStart: 24-18-4917YX STENT VALENTIN FRONTIER 3.0 X 38FDAStart: 98-13-5849VY STENT VALENTIN FRONTIER 3.5 X 12FDA Start: 22-66-2706WP STENT VALENTIN FRONTIER 3.0 X 38FDAStart: 55-87-1833YC STENT VALENTIN FRONTIER 3.5 X 12FDAStart: 52-74-4134VL STENT VALENTIN FRONTIER 3.0 X 38FDA Start: 17-60-0295CQ STENT VALENTIN FRONTIER 3.5 X 12FDAStart: 03-64-7503ZM STENT VALENTIN FRONTIER 3.0 X 38FDAStart: 28-79-9355QR STENT VALENTIN FRONTIER 3.5 X 12FDA Start: 59-68-3519YY STENT VALENTIN FRONTIER 3.0 X 38FDAStart: 96-88-1079DL STENT VALENTIN FRONTIER 3.5 X 12FDAStart: 03-87-3649WW STENT VALENTIN FRONTIER 3.0 X 38FDA Start: 50-83-0176CA STENT VALENTIN FRONTIER 3.5 X 12FDAStart: 41-34-1402ZI STENT VALENTIN FRONTIER 3.0 X 38FDAStart: 77-82-1783XX STENT VALENTIN FRONTIER 3.5 X 12FDA Start: 79-22-9534BENTlbvj: 86-22-5555UQLLriur: 39-22-4875KK STENT VALENTIN FRONTIER 3.0 X 38FDAStart: 23-63-0379WT STENT VALENTIN FRONTIER 3.5 X 12FDAStart: 02-04-2023 Blood Sugar Diagnostic (Accu-Chek Guide Test Strips) stripStart: 84-92-0511CB STENT VALENTIN FRONTIER 3.0 X 38FDAStart: 80-46-4053LP STENT VALENTIN FRONTIER 3.5 X 12 FDAStart: 70-04-2244Bdkrz Sugar Diagnostic (Accu-Chek Guide Test Strips) strip Start: 38-30-7803EN STENT VALENTIN FRONTIER 3.0 X 38FDAStart: 13-20-7856FT STENT VALENTIN FRONTIER 3.5 X 12FDAStart: 35-36-7116Tqhbf Sugar Diagnostic (Accu-Chek Guide Test Strips) stripStart: 33-03-7691KE STENT VALENTIN FRONTIER 3.0 X 38FDA Start: 80-20-9974RY STENT VALENTIN FRONTIER 3.5 X 12FDAStart: 54-11-3328Qrsyf Sugar Diagnostic (Accu-Chek Guide Test Strips) stripStart: 03-18-4175RF STENT VALENTIN FRONTIER 3.0 X 38FDAStart: 42-28-7966FU STENT VALENTIN FRONTIER 3.5 X 12FDAStart: 49-53-4068Jzgyp Sugar Diagnostic (Accu-Chek Guide Test Strips) stripStart: 26-72-1334CY STENT VALENTIN FRONTIER 3.0 X 38FDAStart: 77-19-3588TT STENT VALENTIN FRONTIER 3.5 X 12FDAStart: 47-76-4257Ixfps Sugar Diagnostic (Accu-Chek Guide Test Strips) stripStart: 84-30-6966XV STENT VALENTIN FRONTIER 3.0 X 38FDAStart: 95-19-2509BS STENT VALENTIN FRONTIER 3.5 X 12FDAStart: 64-35-3129Afzmy Sugar Diagnostic (Accu-Chek Guide Test Strips) stripStart: 64-14-3759LW STENT VALENTIN FRONTIER 3.0 X 38FDAStart: 73-41-4713FL STENT VALENTIN FRONTIER 3.5 X 12FDAStart: 90-40-7315Gxyyw Sugar Diagnostic (Accu-Chek Guide Test Strips) stripStart: 58-01-8927AL STENT VALENTIN FRONTIER 3.0 X 38FDAStart: 43-62-3415FZ STENT VALENTIN FRONTIER 3.5 X 12FDAStart: 56-19-3548HU STENT VALENTIN FRONTIER 3.5 X 18FDAStart: 01-21-2025()[id number] FDAStart: 72-55-8444Mmhtn Sugar Diagnostic (Accu-Chek Guide Test Strips) stripStart: 00-36-3221Pmsjf Sugar Diagnostic (Accu-Chek Guide Test Strips) stripStart: 10-14-2024 End: 05-70-0281EO STENT VALENTIN FRONTIER 3.0 X 38FDAStart: 89-34-0303HC STENT VALENTIN FRONTIER 3.5 X 12FDAStart: 00-43-5501NE STENT VALENTIN FRONTIER 3.5 X 18FDAStart: 84-84-8556Bpjqg Sugar Diagnostic (Accu-Chek Guide Test Strips) stripStart: 85-39-7203Nesoh Sugar Diagnostic (Accu-Chek Guide Test Strips) stripStart: 10-14-2024 End: 93-35-0055SN STENT VALENTIN FRONTIER 3.0 X 38FDAStart: 51-23-3453XP STENT VALENTIN FRONTIER 3.5 X 12FDAStart: 36-29-0559AN STENT VALENTIN FRONTIER 3.5 X 18FDAStart: 59-10-3315Clopz Sugar Diagnostic (Accu-Chek Guide Test Strips) stripStart: 08-21-0560Kevzv Sugar Diagnostic (Accu-Chek Guide Test Strips) stripStart: 10-14-2024 End: 88-02-8216GT STENT VALENTIN FRONTIER 3.0 X 38FDAStart: 59-40-8089HS STENT VALENTIN FRONTIER 3.5 X 12FDAStart: 33-92-1212WS STENT VALENTIN FRONTIER 3.5 X 18FDAStart: 30-89-8449Nmtdl Sugar Diagnostic (Accu-Chek Guide Test Strips) stripStart: 68-17-7407Ubgjp Sugar Diagnostic (Accu-Chek Guide Test Strips) stripStart: 10-14-2024 End: 31-31-5557VW STENT VALENTIN FRONTIER 3.0 X 38FDAStart: 17-72-3056GA STENT VALENTIN FRONTIER 3.5 X 12FDAStart: 41-09-7645WL STENT VALENTIN FRONTIER 3.5 X 18FDAStart: 09-22-6129Nxkbm Sugar Diagnostic (Accu-Chek Guide Test Strips) stripStart: 75-98-7182Yrghn Sugar Diagnostic (Accu-Chek Guide Test Strips) stripStart: 10-14-2024 End: 36-56-7327OJ STENT VALENTIN FRONTIER 3.0 X 38FDAStart: 49-38-7459UZ STENT VALENTIN FRONTIER 3.5 X 12FDAStart: 63-28-7692KF STENT VALENTIN FRONTIER 3.5 X 18FDAStart: 07-42-7084Ruzng Sugar Diagnostic (Accu-Chek Guide Test Strips) stripStart: 49-98-3101Nqsub Sugar Diagnostic (Accu-Chek Guide Test Strips) stripStart: 10-14-2024 End: 99-99-0312NC STENT VALENTIN FRONTIER 3.0 X 38FDAStart: 56-90-1210KD STENT VALENTIN FRONTIER 3.5 X 12FDAStart: 15-36-3460PO STENT VALENTIN FRONTIER 3.5 X 18FDAStart: 58-98-3565Xektw Sugar Diagnostic (Accu-Chek Guide Test Strips) stripStart: 19-48-3141Qtnlo Sugar Diagnostic (Accu-Chek Guide Test Strips) stripStart: 10-14-2024 End: 91-44-9805PG STENT VALENTIN FRONTIER 3.0 X 38FDAStart: 44-99-5697OM STENT VALENTIN FRONTIER 3.5 X 12FDAStart: 46-15-6216FY STENT VALENTIN FRONTIER 3.5 X 18FDAStart: 26-43-3758Svwnm Sugar Diagnostic (Accu-Chek Guide Test Strips) stripStart: 48-86-2846Dgswo Sugar Diagnostic (Accu-Chek Guide Test Strips) stripStart: 10-14-2024 End: 16-53-9590KB STENT VALENTIN FRONTIER 3.0 X 38FDAStart: 10-66-6005LD STENT VALENTIN FRONTIER 3.5 X 12FDAStart: 02-50-2087QV STENT VALENTIN FRONTIER 3.5 X 18FDAStart: 19-43-8558Nijai Sugar Diagnostic (Accu-Chek Guide Test Strips) stripStart: 97-64-6857Thuja Sugar Diagnostic (Accu-Chek Guide Test Strips) stripStart: 10-14-2024 End: 45-91-1210ESKHzdwn: 52-05-9428SUFLobxa: 05-22-7680MUTErqhr: 01-21-2025 Goals DatePatient GoalDesired Activity/State Functional Status CxpaBjcnsqdysqDoezugIjhksuhx84-55-8502Altfsokhbj tlgwgi224/[address] [place] [address] Work Phone: 1([phone]) [phone]ut signs60 06/29/2025 8:14 AM Hetal Cortes, [facility] Work Phone: [phone]) [phone] Community Hospital & [facility] Work Phone: [phone] - suicide severity rating scale screener - recent [C-SSRS][facility] Work Phone: [phone] Health Questionnaire 2 item (PHQ-2) [Reported][facility] Work Phone: [phone]) [phone] /89UnSuburban Community Hospital & [facility] Work Phone: [phone]) [phone] signs67 06/02/2025 9:11 AM EDT Madhuri Danielle, [facility] Work Phone: [phone] Community Hospital & [facility] Work Phone: [phone] statusPatient at Baseline [facility] Work Phone: [phone] sbvabq296/80 05/27/2025 11:36 AM EDT Alana Pace LPN 174/80[facility] Work Phone: [phone] signs72 05/27/2025 11:06 AM EDT Mamta Kaplan [facility] Work Phone: [phone] statusUnSuburban Community Hospital & [facility]10-09-2025UnSuburban Community Hospital & [facility] Work Phone: [phone] statusPatient at Baseline [facility] Work Phone: [phone] statusPatient at Baseline [facility] Work Phone: [phone] statusDisability Status Patient at BaselineL[facility] Work Phone: [phone] statusPatient at Baseline [facility] Work Phone: [phone] statusPatient at [facility] Work Phone: [phone] statusPatient at [facility] Work Phone: [phone] statusPatient at [facility] Work Phone: [phone] statusPatient Not at [facility] Work Phone: [phone] statusPatient at [facility] Work Phone: [phone] statusPatient at [facility] Work Phone: [phone] statusPatient at [facility] Work Phone: [phone] statusPatient at [facility] Work Phone: [phone] statusPatient at [facility] Work Phone: [phone] StatusN/AExecutive Urology of [place] 263222-26-2022Functional statusPatient at [facility] Work Phone: Mental Status ChqwGsryywfjaxForzeaQbridptc43-60-7046Ccedgszjt functionPatient at Baseline [facility] Work Phone: [phone] functionCognitive Status [facility] Work Phone: [phone] functionCognitive Status [facility] Work Phone: [phone] functionPatient at [facility] Work Phone: [phone] functionCognitive Status [facility] Work Phone: [phone] functionPatient at [facility] Work Phone: [phone] functionPatient at [facility] Work Phone: [phone] functionCognitive Status Patient [facility]: [phone] functionCognitive Status [facility] Work Phone: [phone] functionCognitive Status [facility] Work Phone: [phone] functionCognitive Status [facility] Work Phone: [phone] functionCognitive Status [facility] Work Phone: [phone] functionCognitive Status [facility] at [facility] Work Phone: [phone] functionCognitive Status [facility] at [facility]As[facility] Work Phone: Clinical Notes 10-02-2021 to 06-29-2025 Note Date & [id number] Evaluation + Plan note* Assessment & Plan Note - DAVID Phillpis - 06/29/2025 8:37 AM ESTAssociated Problem(s): Vapes non-nicotine containing substance Has been able to get completely off nicotine containing vapes and is trying to wean himself off vaping completely [facility] Work Phone: 1(902) 241-579711-11-2025 Miscellaneous Notes* Assessment & Plan Note - DAVID Phillips - 06/29/2025 8:37 AM ESTAssociated Problem(s): Vapes non-nicotine containing substance Has been able to get completely off nicotine containing vapes and is trying to wean himself off vaping completely * Assessment & Plan Note - DAVID Phillips - 06/29/2025 8:36 AM EST Associated Problem(s): Former smoker Abstain since August 2024. [facility] [place] [facility] Work Phone: 1(262) 137-619111-11-2025 Evaluation + Plan note* Assessment & Plan Note - DAVID Phillips - 06/29/2025 8:36 AM ESTAssociated Problem(s): Former smoker Abstain since August 2024. [facility] [place] [facility] Work Phone: 1(370) 772-926811-11-2025 History of Present illness Narrative* DAVID Phillips - 06/29/2025 8:30 AM EST Subjective: Yoel Tamayo is a 40 y.o. male with hypertension. He presents to the office today ambulatory with steady gait. May 2025 seen in cardiology consultation at [facility] by Dr. Gomez due to hypertensive [...] 100 mg tablet 1 tablet, Daily (0630) Hypertension ROS: taking medications as instructed, no medication side effects noted, no TIA's, no chest pain on exertion, no dyspnea on exertion, and no swelling of ankles. New concerns: low BP during HD. Objective: BP 162/82 (BP Location: Right arm, Patient Position: Sitting) Pulse 60 Ht 1.854 m (6' 1 ) Wt 84.4 kg (186 lb) BMI 24.54 kg/m Appearance alert, well appearing, and in no [...] exercise and weight control. Recommended sodium restriction. Tiana Salvador MSN, GUT SNATCHER-[employer]IST, PMHNP-[facility] [place], [place] Please excuse any errors in grammar or translation related to this dictation. Voice recognition software was utilized to prepare this document. documented [facility] [place] [facility] Work Phone: 1(793) 576-146211-11-2025 Instructions* Patient Instructions* DAVID Phillips - 06/29/2025 8:30 [...] Dr. Gomez as scheduled documented [facility] Work Phone: 1(530) 229-119010-15-2025 History of Present illness Narrative* Darvin Cash MD - 06/02/2025 11:00 AM EDT Images from the original note were not included. PCP: Ball Cards: Jason PM: Specialty Problems Cardiology Problems ASHD (arteriosclerotic heart disease) CHF (congestive heart failure) (Multi) Essential (primary) hypertension Hyperlipidemia Mitral regurgitation HPI 40-year-old male here for evaluation of mitral regurgitation. He has a history of large anterior MIwith severe three-vessel disease and eventually underwent staged three-vessel interventions involving the mid LAD, mid circumflex and proximal RCA with drug-eluting stents between October 2021 and January2023. Remains at hemodialysis due to end-stage renal disease secondary to type 1 diabetes mellitus.He has historically been followed by [facility], undergoing evaluation for renal transplantation; he was [...] and 4+ mitral regurgitation. He is persistently hypertensiveeven after dialysis, systolic blood pressures ranging anywhere between 150 to 200 mmHg. Hydralazinehas been escalated to 100 3 times daily [...] 1. 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 Limited quite a bit 5 Meter Walk 11.72 seconds Impression: Patient is a 40-year-old male with a past medical history described above who is presenting for evaluation of severe mitral regurgitation. It is important to note that patient is being considered fora pancreas kidney transplant because of his type [...] to the mitral regurgitation. He presented to [facility] earlier this year where he underwent a [...] was referred to us for consideration for cdvx-ti-snun repair. Unfortunately we do not have his MURIEL images available to us at this time. However his TTE images dodemonstrate a severely regurgitant central jet across the mitral valve without any clear prolapse or flail. There appears to be enough posterior leaflet length and valve area during diastole to make mswm-em-bbli repair feasible. This may be a potential bridge to being listed for transplant. While he is not a prohibitive candidate for surgery, open surgical repair/replacement of his valve would require a longer recovery time which could potentially delay his transplant listing even further. Plan: -We will get CT TAVR protocol to evaluate for surgical candidacy -We will need to obtain MURIEL images from [facility] - Anesthesia visit for likely wlhx-kj-kcky repair -saw dentist in October but patient needs numerous teeth removed and this will need to happen before a valvular procedure The overall decision regarding the best treatment for this condition is complex. We discussed options of both surgical mitral valve replacement and transcatheter mitral valve replacement/repair alongwith risks and benefits involved with both of them in detail. We did a multi specialty discussion of this patient in clinic with the cardiac surgeon, nurses and fellows. We discussed all the risks associated with the procedure, including but not limited to stroke, VA, pericardial tamponade, vascular complications, infection and were [...] 06/05/2025 4:16 PM EDT documented in this [facility] Work Phone: 1([phone]) 775-560310-15-2025 History of Present illness Narrative* Madhuri Jacobs MA - 06/02/2025 10:30 AM EDT KCCQ Questionnaire 1 Heart failure affects different [...] 1. 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 Limited quite a bit 5 Meter Walk 11.72 seconds * Varsha Mcdonnell MD - 06/02/2025 10:30 AM EDT Images from the original note were not included. PCP: Marshall Berg: Jason PM: Specialty Problems Cardiology Problems ASHD (arteriosclerotic heart disease) CHF (congestive heart failure) (Multi) Essential (primary) hypertension Hyperlipidemia Mitral regurgitation HPI 40-year-old male here for evaluation of mitral regurgitation. He has a history of large anterior MIwith severe three-vessel disease and eventually underwent staged three-vessel interventions involving the mid LAD, mid circumflex and proximal RCA with drug-eluting stents between October 2021 and January2023. Remains at hemodialysis due to end-stage renal disease secondary to type 1 diabetes mellitus.He [facility]; he was [...] and 4+ mitral regurgitation. He is persistently hypertensiveeven after dialysis, systolic blood pressures ranging anywhere between 150 to 200 mmHg. Hydralazinehas been escalated to 100 3 times daily [...] Vape Substance Use Topics Alcohol use: Never Family History[1] RX Allergies[2] Current Outpatient Medications Medication Instructions amLODIPine (NORVASC) [...] 1. 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 Limited quite a bit 5 Meter Walk 11.72 seconds Impression: Patient is a 40-year-old male with a past medical history described above who is presenting for evaluation of severe mitral regurgitation. It is important to note that patient is being considered fora pancreas kidney transplant because of his type [...] to the mitral regurgitation. He presented to [facility] earlier this year where he underwent a [...] was referred to us for consideration for wguu-dr-afzb repair. Unfortunately we do not have his MURIEL images available to us at this time. However his TTE images dodemonstrate a severely regurgitant central jet across the mitral valve without any clear prolapse or flail. There appears to be enough posterior leaflet length and valve area during diastole to make bcvk-xm-dsjn repair feasible. This may be a potential bridge to being listed for transplant. While he is not a prohibitive candidate for surgery, open surgical repair/replacement of his valve would require a longer recovery time which could potentially delay his transplant listing even further. Plan: -We will get CT TAVR protocol to evaluate for surgical candidacy -We will need to obtain MURIEL images from [facility] - Anesthesia visit for likely yoie-jn-zoqq repair -saw dentist in October but patient needs numerous teeth removed and this will need to happen before a valvular procedure The overall decision regarding the best treatment for this condition is complex. We discussed options of both surgical mitral valve replacement and transcatheter mitral valve replacement/repair alongwith risks and benefits involved with both of them in detail. We did a multi specialty discussion of this patient in clinic with the cardiac surgeon, nurses and fellows. We discussed all the risks associated with the procedure, including but not limited to stroke, VA, pericardial tamponade, vascular complications, infection and were [...] with further diagnostic needs and formal plan. Patient seen and examined; I agree with documentation including A&P as above. I personally obtained the renner and critical portions of the history and physical exam or was physically present for renner and critical portions performed by the resident/fellow. I reviewed the resident/fellow's documentation and discussed the patient with the resident/fellow. I agree with the resident/fellow's medical decision making as documented in the note. [1] Family History Problem Relation Name Age of Onset Diabetes Mother Hypotension Mother Kidney disease Mother Liver disease Mother Other (heart problem) Mother Pancreatic cancer Mother Hypertension Father [2] Allergies Allergen Reactions Brilinta [Ticagrelor] Shortness of breath documented [facility] Work Phone: 1([phone]) 186-385110-14-2025 History and physical note Author Adrian Noland [facility] Date/TimeOctober 2024 6:54am [place] [address] Hospitalist H&P Signed Patient: Yoel Tamayo MR#: [id number] : 1985 Acct:[id number] Age/Sex: 40 / M Adm Date: 5 Loc: 3T Room: [address] [place] [address] Type: ADM INOo Attending Dr: Adrian Noland [...] lightheadedness, shortness of breath and left-sided chest p ain duringhemodialysis today. Chest pain was left-sided only [...] V6. Case was discussed with the patient's chain testing machine operator by ED physician. No risk factors or [...] Hematologic/Lymphatic Hematologic/Lymphatic: Denies easy bleeding [facility] Medical History Type I diabetes mellitus with [...] PO .tidwith meal 11/13/23 [History Confirmed 05/31/25] 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,mold shaker,cont (FreeStyle Ramy 3 [place]) #1 ea 03/19/24 [Rx Confirmed 05/31/25] omeprazole [...] (Lantus Solostar U-100 Insulin) 20 unit subcutQHS diabetes 10/30/24 [History Confirmed 05/31/25] 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 meter [...] % (Auto) 13.8 % (.) 05/31/25 17:45 Greeley % (Auto) 6.6 % (.) 05/31/25 17:45 Eos % (Auto) 4.5 % (.) 05/31/25 17:45 Baso % (Auto) 2.0 % (.) 05/31/25 17:45 Nucleat RBC Rel Count 0.1 /100 WBC (0-0.5) 05/31/25 17:45 Neut # (Auto) 2.6 x10E3/uL (1.8-7.7) 05/31/25 17:45 Lymph # (Auto) 0.5 x10E3/uL (1.00-4.8) L 05/31/25 17:45 Greeley # (Auto) 0.2 x10E3/uL (0.0-0.8) 05/31/25 17:45 [...] dual antiplatelets aspirin Plavix, high intensity statin, beta- blockers and combination of hydralazine and nitrates Diabetes: Continue Lantus 20 units, low-dose Premeal sliding scale ESRD: Continue Lasix he still makes urine. Next dialysis is Saturday if patient stays here we willcall nephrology for dialysis. Outpatient evaluation for transplant [...] signed by Adrian Noland MD> 06/01/25 0654 [facility] Work Phone: 1([phone]) 446-752410-09-2025 History of Present illness Narrative* Brianna Gomez, DO - 05/27/2025 10:40 AM EDT Chief Complaint Patient presents with Follow-up 6M Follow up for Coronary Artery Disease Subjective Yoel Tamayo is a 40 y.o. male 40-year-old gentleman returns for follow-up following recent elective left heart catheterization and IFR guided PCI of the proximal LAD with 3.5 mm Cheshire stent. He is otherwise doing very well, remains at hemodialysis due to end-stage renal disease secondary to type 1 diabetes mellitus. More recently he has had hypoglycemic episodes details of which are reviewed, his short acting insulin has been discontinued He has [facility]; he was [...] He has a history of large anterior VA with severe three-vessel disease and eventually underwent [...] Follow Up In Cardiology 2. History of VA (myocardial infarction) 3. Status post insertion of [...] exam, discussion and plan. documented in this [facility] Work Phone: 1(925) 899-732410-09-2025 Instructions* Patient Instructions* Alana Pace LPN - [...] time of your visit. documented in this [facility] Work Phone: 1([phone]) 506-351609-18-2025 History and physical note Author Dwayne Little [facility] Date/TimeSeptember 2024 5:36am [place] [address] Hospitalist H&P Signed Patient: Yoel Tamayo MR#: [id number] : 1985 Acct:[id number] Age/Sex: 40 / M Adm Date: 5 Loc: ER Room: Type: [facility] ER Attending Dr: Copies to: DO Dwayne [...] and pancreas transplant. He is working with [facility] on this. He says that he would be one of the first to get this typeof transplant at the [facility]. To control his diabetes he uses Lantus [...] except as mentioned elsewhere in the documentation. REPLACED BY [facility] Medical History Type I diabetes mellitus with [...] PO .tidwith meal 11/13/23 [History Confirmed 04/22/25] 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,mold shaker,cont (FreeStyle Ramy 3 [place]) #1 ea 03/19/24 [Rx Confirmed 04/22/25] omeprazole [...] (Lantus Solostar U-100 Insulin) 20 unit subcutQHS diabetes 10/30/24 [History Confirmed 04/22/25] 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 meter [...] 20 151/70 H 96 Room Air 05/05/25 22:05/06/25 04:00 05/05/25 22:05/06/25 04:00 05/06/25 04:00 05/06/25 04:00 Narrative: GEN: [...] % (Auto) 17.1 % (.) 05/05/25 23:43 Greeley % (Auto) 6.9 % (.) 05/05/25 23:43 Eos % (Auto) 4.8 % (.) 05/05/25 23:43 Baso % (Auto) 2.4 % (.) 05/05/25 23:43 Nucleat RBC Rel Count 0.2 /100 WBC (0-0.5) 05/05/25 23:43 Neut # (Auto) 3.2 x10E3/uL (1.8-7.7) 05/05/25 23:43 Lymph # (Auto) 0.8 x10E3/uL (1.00-4.8) L 05/05/25 23:43 [place] # (Auto) 0.3 x10E3/uL (0.0-0.8) 05/05/25 23:43 [...] besuitable for discharge to home. I did after school counselor the patient that he will need [...] signed by Dwayne Little DO> 05/06/25 0536 [facility] Work Phone: 1(892) 893-722709-18-2025 History and physical [address] [address] Hospitalist H&P Signed Patient: Yoel Tamayo MR#: [id number] : 1985 Acct:[id number] Age/Sex: 40 / M Adm Date: 5 Loc: ER Room: Type: [facility] ER Attending Dr: Copies to: DO Dwayne [...] and pancreas transplant. He is working with [facility] on this. He says that he would be one of the first to get this typeof transplant at the [facility]. To control his diabetes he uses Lantus [...] except as mentioned elsewhere in the documentation. REPLACED BY [facility] Medical History Type I diabetes mellitus with [...] to arterial insufficiency Dependence on renal dialysis Mon-Sat-Sat Cigarette nicotine dependence without complication Chronic venous [...] PO .tidwith meal 11/13/23 [History Confirmed 04/22/25] 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,mold shaker,cont (FreeStyle Ramy 3 [place]) #1 ea 03/19/24 [Rx Confirmed 04/22/25] omeprazole [...] (Lantus Solostar U-100 Insulin) 20 unit subcutQHS diabetes 10/30/24 [History Confirmed 04/22/25] 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 meter [...] 20 151/70 H 96 Room Air 05/05/25 22:05/06/25 04:00 05/05/25 22:05/06/25 04:00 05/06/25 04:00 05/06/25 04:00 Narrative: GEN: [...] % (Auto) 17.1 % (.) 05/05/25 23:43 [place] % (Auto) 6.9 % (.) 05/05/25 23:43 Eos % (Auto) 4.8 % (.) 05/05/25 23:43 Baso % (Auto) 2.4 % (.) 05/05/25 23:43 Nucleat RBC Rel Count 0.2 /100 WBC (0-0.5) 05/05/25 23:43 Neut # (Auto) 3.2 x10E3/uL (1.8-7.7) 05/05/25 23:43 Lymph # (Auto) 0.8 x10E3/uL (1.00-4.8) L 05/05/25 23:43 [place] # (Auto) 0.3 x10E3/uL (0.0-0.8) 05/05/25 23:43 [...] besuitable for discharge to home. I did after school counselor the patient that he will need [...] Little DO 0529 Signed By: 05/06/25 0536 [facility]08-14-2025 Evaluation note* Diagnosis Onset Date Resolution Status Admit Date Pain from arteriovenous fistula acuteAugust 2024 10:44am [facility] Work Phone: 1(832) 293-470008-14-2025 Evaluation note* Diagnosis Onset Date Resolution Status Admit Date Pain from arteriovenous fistula acuteAugust 2024 10:44amASHD (arteriosclerotic heart disease)acute April 22, 2025 10:32amChronic bronchitis, mucopurulentacuteSeptember 2024 10:32amChronic heart failure with preserved ejection fraction (HFpEF)acute April 22, 2025 10:32amDependence on renal dialysisacuteSeptember 2024 10:32amESRD (end stage renal disease)acuteSept2024 10:32amNicotine addictionacuteSeptember 2024 10:32amPrimary hypertensionacuteSeptember 2024 10:32amRight shoulder painacuteSeptember 2024 10:32amType 1 diabetes mellitus with hyperglycemiaacuteSept2024 10:32am [facility] Work Phone: 1(865) 382-527108-14-2025 Evaluation note* Diagnosis Onset Date Resolution Status Admit Date Pain from arteriovenous fistula acuteAut 2024 10:44amASHD (arteriosclerotic heart disease)acute April 22, 2025 10:32amChronic bronchitis, mucopurulentacuteSeptember 2024 10:32amChronic heart failure with preserved ejection fraction (HFpEF)acute April 22, 2025 10:32amDependence on renal dialysisacuteSeptember 2024 10:32amESRD (end stage renal disease)acuteSept2024 10:32amNicotine addictionacuteSeptember 2024 10:32amPrimary hypertensionacuteSept2024 10:32amRight shoulder painacuteSeptember 2024 10:32amType I diabetes mellitus with hypoglycemiaacuteSept2024 10:32amESRD (end stage renal disease)acuteSept2024 5:24amHistory of diabetes mellitusacute May 06, 2025 5:24amHistory of end stage renal diseaseacuteSeptember 2024 5:24amHypoglycemiaacuteSeptember 2024 5:24amType I diabetes mellitus with hypoglycemiaacuteSeptember 2024 5:24am [facility] Work Phone: 1(117) 464-455908-14-2025 Evaluation note* Diagnosis Onset Date Resolution Status Admit Date Pain from arteriovenous fistula acuteAugust 2024 10:44amASHD (arteriosclerotic heart disease)acute April 22, 2025 10:32amChronic bronchitis, mucopurulentacuteSeptember 2024 10:32amChronic heart failure with preserved ejection fraction (HFpEF)acute April 22, 2025 10:32amDependence on renal dialysisacuteSept2024 10:32amESRD (end stage renal disease)acuteSeptember 2024 10:32amNicotine addictionacuteSeptember 2024 10:32amPrimary hypertensionacuteSept2024 10:32amRight shoulder painacuteSeptember 2024 10:32amType I diabetes mellitus with hypoglycemiaacuteSeptember 2024 10:32amESRD (end stage renal disease)acuteSeptember 2024 5:24amHistory of diabetes mellitusacute May 06, 2025 5:24amHistory of end stage renal diseaseacuteSeptember 2024 5:24amHypoglycemiaacuteSeptember 2024 5:24amType I diabetes mellitus with hypoglycemiaacuteSeptember 2024 5:24amHypertensive emergency acuteOctober 2024 8:59pm [facility] Work Phone: 1([phone]) 515-211608-14-2025 Evaluation note* Diagnosis Onset Date Resolution Status Admit Date Pain from arteriovenous fistula acuteAugust 2024 10:44amASHD (arteriosclerotic heart disease)acute April 22, 2025 10:32amChronic bronchitis, mucopurulentacuteSeptember 2024 10:32amChronic heart failure with preserved ejection fraction (HFpEF)acute April 22, 2025 10:32amDependence on renal dialysisacuteSeptember 2024 10:32amESRD (end stage renal disease)acuteSeptember 2024 10:32amNicotine addictionacuteSeptember 2024 10:32amPrimary hypertensionacuteSeptember 2024 10:32amRight shoulder painacuteSeptember 2024 10:32amType I diabetes mellitus with hypoglycemiaacuteSeptember 2024 10:32amESRD (end stage renal disease)acuteSeptember 2024 5:24amHistory of diabetes mellitusacute May 06, 2025 5:24amHistory of end stage renal diseaseacuteSeptember 2024 5:24amHypoglycemiaacuteSeptember 2024 5:24amType I diabetes mellitus with hypoglycemiaacuteSeptember 2024 5:24amAtypical chest pain acuteOctober 2024 8:59pmH/O heart artery [id number] 2024 8:59pmHistory of end stage renal diseaseacuteOctober 2024 8:59pm Hypertensive emergencyacuteOctober 2024 8:59pmHypertensive urgencyacute May 31, 2025 8:59pmMitral regurgitationacuteOctober 2024 8:59pmType I diabetes mellitus with hypoglycemiaacuteOctober 2024 8:59pm [facility] Work Phone: 1(208) 629-543708-14-2025 [facility]iology [facility] [address] [place] [address] Ultrasound Report Signed Patient: Yoel Tamayo MR#: [id number] : 1985 Acct:[id number] Age/Sex: 40 / M ADM Date: 5 Loc: [facility] Room: Type: [facility] Attending Dr: Romain Mendoza MD Ordering [...] Mendoza MD,FACS,FSVS 04/01/2025 12:35 PM Dictation Location: [place] [address] Tech: Leslie Marinelli Transcribed By: PWS 04/01/25 1235 Dictated By: Romain Mendoza MD 04/01/25 1234 Signed By: 04/01/25 1235 [facility] Work Phone: 1(165) 940-627206-05-2025 [place] [address] Cardiac Catheterization Note Signed Patient: Yoel Tamayo MR#: [id number] : 1985 Acct:[id number] Age/Sex: 39 / M Adm Date: 5 Loc: Room: Type: [facility] Attending Dr: Denilson Gomez DO Copies to: DO Denilson Leblanc DO~ Cardiac Catheterization (Left) DATE/PROVIDER 01/21/2025 Denilson Gomez DO INDICATION 1. Recurrent shortness of breath/anginal equivalent 2. End-stage renal disease on dialytic therapy 3. ASHD with remote VA and revascularizations of the proximal/mid LAD and [...] assessment proximal LAD with Omni wire and [employer] imaging system 4. PCI proximal LAD with 3.5 x 18 mm Valentin stent with repeat IFR assessment LAD PROCEDURE DETAILS Failed right radial attempt?unable to wire radial artery x 2 Utilizing the right femoral approach with a single arterial puncture technique a4 Montenegrin sheath wasinserted the right femoral artery over guidewire without anycomplications next preformed JL4, JR4 and angled pigtail catheters were utilized to selectively engage and image left and right coronary arteries, and the left ventricle all with imaging, interpretation, pressure measurements, coronary, and left ventriculography, Next, the 4 Montenegrin sheath was exchanged for 6 Montenegrin sheath, 6 Montenegrin JL 4 guidecatheter was advanced to the left coronary, selective left coronary angiography with interpretation followed by IFR assessment of proximal LAD with Omni wire and [employer] imaging system, followed by PCI proximal LAD with 3.5 x18 mm Valentin stent, followed by post stent dilatation with 3.5 x 12 mm noncompliantEuphora balloon; and repeat IFR assessment post PCI HEMOSTASIS XO seal SUMMARY OF FINDINGS CCS Classification: CCS [id number] w/ mild exertion Dominance: Right Left Main [...] DO 01/21/25 1529 Signed By: 01/21/25 1534 [facility]06-05-2025 Procedure [facility] [address] [place] [address] Cardiology IVUS/FFR/IFR Note Signed Patient: Yoel Tamayo MR#: [id number] : 1985 Acct:[id number] Age/Sex: 39 / M Adm Date: 5 Loc: CL Room: Type: [facility] Attending Dr: Denilson Gomez DO Copies to: [...] Gomez DO 01/21/25 1528 Signed By: 01/21/25 [facility]06-05-2025 Procedure [place] [id number] Cardiology PCI Note Signed Patient: Yoel Tamayo MR#: [id number] : 1985 Acct:[id number] Age/Sex: 39 / M Adm Date: 5 Loc: CL Room: Type: [facility] Attending Dr: Denilson Gomez DO Copies to: [...] PCI proximal LAD with3.5 x 18 mm Valentin stent for ISR) FINDINGS 1st vessel: Lesion [...] Drug Eluting Stent: 3.5 x 18 mm Valentin Narrative: See cardiac catheterization narrative for complete dissertation and left coronary angiography with interpretation, guide catheter selection, pharmacology, equipment Summary: The proximal portion of the LAD located in the proximal portion of the 3 mm stent that wasplaced for original anterior VA several years ago, there wassevere, eccentric, 80% [...] stented with a 3.5 x 18 mm [place] stentat 12 [place], and then postdilated with [...] DO 01/21/25 1524 Signed By: 01/21/25 1528 [facility]05-27-2025 Evaluation note* Diagnosis Onset Date Resolution Status Admit Date ASHD (arteriosclerotic heart disease) acuteMa2024 2:40pmChronic bronchitis, mucopurulentacuteMay 2024 2:40pmChronic heart failure with preserved ejection fraction (HFpEF)acuteMa2024 2:40pmDependence on renal dialysisacuteMa2024 2:40pmESRD (end stage renal disease)acuteMay 2024 2:40pmNicotine addictionacuteMay 2024 2:40pmPrimary hypertensionacuteMay 2024 2:40pmRight shoulder pain acuteMay 2024 2:40pmType 1 diabetes mellitus with hyperglycemiaacuteMay 2024 2:40pm [facility] Work Phone: 1(386) 149-439905-27-2025 Evaluation note* Diagnosis Onset Date Resolution Status Admit Date ASHD (arteriosclerotic heart disease) acuteMa2024 2:40pmChronic bronchitis, mucopurulentacuteMay 2024 2:40pmChronic heart failure with preserved ejection fraction (HFpEF)acuteMay 2024 2:40pmDependence on renal dialysisacuteMay 2024 2:40pmESRD (end stage renal disease)acuteMay 2024 2:40pmNicotine addictionacuteMay 2024 2:40pmPrimary hypertensionacuteMay 2024 2:40pmRight shoulder pain acuteMay 2024 2:40pmType 1 diabetes mellitus with hyperglycemiaacuteMay 2024 2:40pmPain from arteriovenous fistulaacuteAugust 2024 10:44am [facility] Work Phone: 1([phone]) 214-889005-06-2025 NotePatient was recently made inactive due to [...] done. He will follow with his primary chain testing machine operator Dr. Gomez to undergo the procedure and what ever he needs for management of his mitral regurgitation. Whenever all is done Dr. Asencio advised that the patient would need to be seen for a follow-up likely with a echocardiogram to give a final recommendation regarding his candidacy for renal and pancreas transplant.[facility]05-06-2025 NotePatient: Yoel Tamayo Procedure Information Date/Time: 12/22/24 1330 Procedures: Coronary angiography - PC APPROVED 12/02-03/01 Right heart cath Location: [facility] SENIOR IT ARCHITECT 3 / [facility]ULAR [facility] (Cath) Providers: Stephen Asencio MD Clinical information reviewed: Allergies Meds Physical Exam Airway Mallampati: III TM distance: >3 FB Neck ROM: full Cardiovascular Rhythm: regular Rate: normal Dental Pulmonary Breath sounds clear to auscultation Abdominal Anesthesia Plan ASA 3 other (Conscious sedation.) Anesthetic plan and risks discussed with patient. Use of blood products discussed with patient who consented to blood products. [facility] History of Present illness Narrative* David Ferrell, DPM - 12/10/2024 10:30 AM EDT Patient: Yoel Tamayo : 1985 PCP: Eusebio Olivares MD SUBJECTIVE [...] Patient has longstanding history and history of VA x2 with cardiac stents as well as multiple myeloma history. Patient also on dialysis with end-stage renal disease Patient has a left HAV deformity Allergies: No Known Allergies Past Medical History: Past Medical History: Diagnosis Date Cancer (CMS/HCC) CHF (congestive heart failure) (CMS/HCC) Diabetes (CMS/HCC) End stage renal disease (CMS/HCC) Heart attack (CMS/HCC) Hypertension (CMS/HCC) MGUS (monoclonal gammopathy of unknown [...] Rfl: 2 ergocalciferol (Vitamin D2) 1.25 MG (35121 UT) capsule, Take 1 capsule by mouth [...] NEEDED FOR NAUSEA/ VOMITING, Disp: , Rfl: Cbfsehxcifs-Avrshpxh-Vbefaiihv 1-0.5-0.075 % solution, Administer 1 drop into [...] Resource Strain: Low Risk (03/14/2024) Received from [facility] Overall Financial Resource Strain (CARDIA) Difficulty of Paying Living Expenses: Not hard at all Food Insecurity: No Food Insecurity (03/14/2024) Received from [facility] Hunger Vital Sign Worried About Running Out of Food in the Last Year: Never true Ran Out of Food in the Last Year: Never true Transportation Needs: No Transportation Needs (03/14/2024) Received from [facility] Care PRAPARE - Transportation Lack of Transportation (Medical): No Lack of Transportation (Non-Medical): No Physical Activity: Not on file Stress: Not on file Social Connections: Not on file Intimate Partner Violence: Unknown (11/26/2023) Received from [facility] Safety & Environment Fear of Current or Ex-Partner: Not on file Emotionally Abused: Not on file Physically Abused: Not on file Sexually Abused: Not on file Physically or Sexually Abused: Not on file Housing Stability: Not on file ROS: General: denies fever, chills, fatigue, malaise Cardiovascular: denies CP, palpitations, irregular rhythms. Positive history of cardiac stents in VA and on blood thinners OBJECTIVE LE EXAM: DERM: Elongated thick yellow crumbly nails digits 1 through 10. Diminished hair growth with thin shiny atrophic skin bilaterally. Rubor to dorsal medial eminence of the left 1st metatarsal VASC: Positive DP and positive PT pedal pulses NEURO: 5.07 [place] Alecia monofilament test positive to digits and [...] feet and discussed proper shoe gear. David Ferrell DPM documented in this encounterSaint John's Health SystemSsdqdzklfu32-07-1975 History of Present illness Narrative* Brianna Gomez DO - 11/24/2024 11:20 AM EDT Chief Complaint Patient presents with Follow-up 6m follow up for Arteriosclerotic heart disease Subjective Yoel Tamayo is a 39 y.o. male 39-year-old gentleman [...] hold presently, was referred to cardiology at [facility] for valvular evaluation and underwent transesophageal echo; I suspect for mitral regurgitation which was previously considered mild to moderate. Most recent echo from [facility] this past summer during his brief hospitalization and even heart catheterization at that time revealed moderate mitral regurgitation with normal left ventricular function at that time heart catheterization revealed widely patent coronary stents x 3 vessels. We have no results from [facility] or clinical notes at the [...] He has a history of large anterior VA with severe three-vessel disease and eventually underwent [...] issues per the patient. Recommendations: Will obtain [facility] data and imaging and notes, [facility], follow- up otherwise on same therapies and 6 months. Clinically there is no need for repeat heart catheterization as he just had one in the at [facility], however if structural heart team requires 1 [...] Follow Up In Cardiology 2. History of VA (myocardial infarction) 3. Status post insertion of [...] exam, discussion and plan. [facility] Work Phone: 1(990) 107-165304-08-2025 Instructions* Patient Instructions* Mamta Kaplan LPN - [...] time of your visit. documented in this [facility]East [facility] Work Phone: 1(747) 148-626104-03-2025 NoteUT Cardiology - [facility] Subjective Yoel Tamayo is a 39 y.o. year old male patient being seen for followup of mitral regurgitation. Patient Active Problem List Diagnosis Acute hypoxic respiratory failure (CMS/HCC) Acute metabolic encephalopathy Anasarca Anemia in chronic kidney disease Coronary artery disease involving [place] coronary artery of pa[place]shoshone heart without angina pectoris AV fistula stenosis BMI 21.0-21.9, adult Chest pain CHF (congestive heart failure) (CMS/HCC) Chronic bronchitis, mucopurulent (CMS/HCC) Chronic venous insufficiency Cigarette nicotine dependence without complication Current every day smoker Diabetes mellitus (CMS/HCC) Encephalopathy Erectile dysfunction due to arterial insufficiency End stage renal disease (CMS/HCC) Hypertension, essential EBENEZER (generalized anxiety disorder) HCAP (healthcare-associated pneumonia) History of VA (myocardial infarction) Hyperkalemia Hyperlipidemia Hypertensive emergency Hypoxemia [...] Currently Types: Marijuana Comment: medical HPI Yoel Tamayo was seen previously as a new patient for cardiac evaluation for possible renal and pancreas transplant, referred by Dr. Jewell. He is not on the renal transplant [...] present. Pulmonary: Effort: Pulm (more content not included)...[facility] 11-02-2024 Consult note Author Bryce Coy [facility] HospitalNote Date/TimeMarch 2024 12:28[place] [address] Nephrology Consult Note Signed Patient: Yoel Tamayo MR#: [id number] : 1985 Acct:[id number] Age/Sex: 39 / M Adm Date: 5 Loc: Room: [address] [place] [address] Type: ADM INOo Attending Dr: Law Cano MD Copies to: DO Bryce Leblanc MD Marwan Wassouf, MD~ Providers Consult Date: 11/02/24 Requesting Provider: Law Cano MD Primary Care Provider: Eusebio Olivares DO [facility] Reason for Consult: Management of ESRD and dialysis during hospital stay History of Present Illness: Mr. Tamayo is a 39-year-old white male with history of ESRD related to DM2 ondialysis on MWF schedule at [facility]. Other medical problems include CAD s/p VA s/p stents, HFpEF and recurrent episodes of hypoglycemia. Patient currently has functioning left arm AV fistula. He is undergoing evaluation for pancreas and kidney transplant at [facility]. Patient presented to theER on [...] negative unless noted below or in HPI REPLACED BY [facility] Medical History Contusion of right lower extremity [...] Meds Medications & Allergies Allergies ticagrelor (From TreaterilinUnocoin) Allergy (Verified 11/01/24 20:26) shortness of breath [...] Confirmed 11/01/24] 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 meter,continuous (FreeStyle Ramy 3 [place]) #1 ea 03/19/24 [Rx Confirmed 11/01/24] omeprazole [...] 5 Mg Tablet) 5 mg PO DAILY [facility] Stop: 11/02/25 08:59 Last Admin: 11/02/24 08:52 Dose: 5 mg Aspirin (Aspirin 81 Mg Tab.Chew) 81 mg PO QAM [facility] Stop: 11/02/25 08:59 Last Admin: 11/02/24 08:52 Dose: 81 mg Atorvastatin Calcium (Atorvastatin 80 Mg Tablet) 80 mg PO QAM [facility] Stop: 11/02/25 08:59 Last Admin: 11/02/24 08:52 Dose: 80 mg Calcium Acetate (Calcium Acetate 667 Mg Capsule) 1,334 mg PO TID [facility] Stop: 11/02/25 08:59 Last Admin: 11/02/24 08:52 Dose: 1,334 mg Carvedilol (Carvedilol 25 Mg Tablet) 25 mg PO BID.WITH.MEALS [facility] Stop: 11/02/25 07:59 Last Admin: 11/02/24 08:53 Dose: 25 mg Clopidogrel Bisulfate (Clopidogrel Bisulfate 75 Mg Tablet) 75 mg PO DAILY [facility] Stop: 11/02/25 08:59 Last Admin: 11/02/24 08:52 Dose: 75 mg Dextrose (Dextrose 50% In Water 25 Gm/50 Ml Syringe) 0 gm IV-PUSH PRN PRN PRN Reason: Hypoglycemia Stop: 11/01/25 23:45 Epoetin Alexus (Epoetin Alexus (Esrd Use) 20,000 Unit/Ml Vial) 14,000 unit IV-PUSH MoWeFr@0900 [facility]; Protocol Stop: 11/02/25 08:59 Last Admin: 11/02/24 09:20 Dose: 14,000 unit Famotidine (Famotidine 20 Mg Tablet) 20 mg PO Q48H [facility] Stop: 11/03/25 20:59 Ferric Sodium Gluconate Complex (Sodium Ferric Gluconat/Sucrose 62.5 Mg/5 Ml Vial) 125 mg IV-PUSH We@0815 [facility] Stop: 11/04/25 08:14 Furosemide (Furosemide 80 Mg Tablet) 80 mg PO DAILY [facility] Stop: 11/02/25 08:59 Last Admin: 11/02/24 08:52 [...] 50 Mg Tablet) 100 mg PO BID [facility] Stop: 11/02/25 08:59 Last Admin: 11/02/24 08:52 Dose: 100 mg Hydroxyzine Pamoate (Hydroxyzine Pamoate 25 Mg Capsule) 25 mg PO QPM [facility] Stop: 11/02/25 20:59 Sodium Chloride (0.9% Sodium Chloride 1,000 Ml) 1,000 mls @ 0 mls/hr MISCELLANE.Q0M PRN PRN Reason: Dialysis Stop: 11/02/25 08:13 Last Infusion: 11/02/24 09:21 Dose: Infused Insulin Aspart (Insulin Aspart 300 Units/3 Ml) 0 units SUBCUT TID.WM.HS [facility]; Protocol Stop: 11/02/25 07:59 Last Admin: 11/02/24 10:29 Dose: Not Given Insulin Glargine (Insulin Glargine 300 Units/3 Ml Insuln.Pen) 20 units SUBCUT QHS [facility] Stop: 11/02/25 21:59 Isosorbide Mononitrate (Isosorbide Mononitrate 24hr Er 60 Mg Tab.Er.24h) 60 mg PO BID [facility] Stop: 11/02/25 08:59 Last Admin: 11/02/24 08:52 Dose: 60 mg Ondansetron HCl (Ondansetron 4 Mg/2 Ml Vial) 4 mg IV-PUSH Q8H PRN PRN Reason: Nausea And Vomiting Stop: 11/01/25 23:31 Pantoprazole Sodium (Pantoprazole 40 Mg Tablet.Dr) 40 mg PO DAILY [facility] Stop: 11/02/25 08:59 Last Admin: 11/02/24 08:52 Dose: 40 mg Paricalcitol (Paricalcitol 10 Mcg/2 Ml Vial) 5 mcg IV-PUSH MoWeFr@0815 [facility] Stop: 11/02/25 08:14 Last Admin: 11/02/24 09:18 Dose: 5 mcg Sertraline HCl (Sertraline 100 Mg Tablet) 100 mg PO DAILY [facility] Stop: 11/02/25 08:59 Last Admin: 11/02/24 [...] Appearance Clear Urine pH 7.0 Ur Specific [place] 1.010 Urine Protein 200 H Urine Glucose [...] Jr., D.O.11/02/2024 8:28 AM Dictation Location: RADIO-PC-22 Any impression(s) listed above is documentation that was entered by the reading physician into a diagnostic report(s) for Yoel Tamayo. I have reviewed the report(s) and am [...] disease on hemodialysis in February 2023 at [facility] on [facility] schedule (2) Acute hyperkalemia: Assessment/Problem Details: Patient [...] <Electronically signed by MD Bryce Coy> 11/02/24 [facility] Work Phone: 1(362) 289-916403-17-2025 [place] [address] Nephrology Consult Note Signed Patient: Yoel Tamayo MR#: [id number] : 1985 Acct:[id number] Age/Sex: 39 / M Adm Date: 5 Loc: Room: [address] [place] [address] Type: ADM INOo Attending Dr: Law Cano MD Copies to: DO Bryce Leblanc MD Marwan Wassouf, MD~ Providers Consult Date: 11/02/24 Requesting Provider: Law Cano MD Primary Care Provider: Eusebio Olivares DO HPI Reason for Consult: Management of ESRD and dialysis during hospital stay History of Present Illness: Mr. Tamayo is a 39-year-old white male with history of ESRD related to DM2 ondialysis on MWF schedule at [facility]. Other medical problems include CAD s/p VA s/p stents, HFpEF and recurrent episodes of hypoglycemia. Patient currently has functioning left arm AV fistula. He is undergoing evaluation for pancreas and kidney transplant at [facility]. Patient presented to theER on [...] negative unless noted below or in HPI REPLACED BY [facility] Medical History Contusion of right lower extremity [...] 2023 Social History Comments: lives with dad unamia Medications & Allergies Allergies ticagrelor (From Brilinta) [...] Confirmed 11/01/24] 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 meter,continuous (FreeStyle Ramy 3 [place]) #1 ea 03/19/24 [Rx Confirmed 11/01/24] omeprazole [...] 5 Mg Tablet) 5 mg PO DAILY [facility] Stop: 11/02/25 08:59 Last Admin: 11/02/24 08:52 Dose: 5 mg Aspirin (Aspirin 81 Mg Tab.Chew) 81 mg PO QAM [facility] Stop: 11/02/25 08:59 Last Admin: 11/02/24 08:52 Dose: 81 mg Atorvastatin Calcium (Atorvastatin 80 Mg Tablet) 80 mg PO QAM [facility] Stop: 11/02/25 08:59 Last Admin: 11/02/24 08:52 Dose: 80 mg Calcium Acetate (Calcium Acetate 667 Mg Capsule) 1,334 mg PO TID [facility] Stop: 11/02/25 08:59 Last Admin: 11/02/24 08:52 Dose: 1,334 mg Carvedilol (Carvedilol 25 Mg Tablet) 25 mg PO BID.WITH.MEALS [facility] Stop: 11/02/25 07:59 Last Admin: 11/02/24 08:53 Dose: 25 mg Clopidogrel Bisulfate (Clopidogrel Bisulfate 75 Mg Tablet) 75 mg PO DAILY [facility] Stop: 11/02/25 08:59 Last Admin: 11/02/24 08:52 Dose: 75 mg Dextrose (Dextrose 50% In Water 25 Gm/50 Ml Syringe) 0 gm IV-PUSH PRN PRN PRN Reason: Hypoglycemia Stop: 11/01/25 23:45 Epoetin Alexus (Epoetin Alexus (Esrd Use) 20,000 Unit/Ml Vial) 14,000 unit IV-PUSH MoWeFr@0900 [facility]; Protocol Stop: 11/02/25 08:59 Last Admin: 11/02/24 09:20 Dose: 14,000 unit Famotidine (Famotidine 20 Mg Tablet) 20 mg PO Q48H [facility] Stop: 11/03/25 20:59 Ferric Sodium Gluconate Complex (Sodium Ferric Gluconat/Sucrose 62.5 Mg/5 Ml Vial) 125 mg IV-PUSH We@0815 [facility] Stop: 11/04/25 08:14 Furosemide (Furosemide 80 Mg Tablet) 80 mg PO DAILY [facility] Stop: 11/02/25 08:59 Last Admin: 11/02/24 08:52 [...] 50 Mg Tablet) 100 mg PO BID [facility] Stop: 11/02/25 08:59 Last Admin: 11/02/24 08:52 Dose: 100 mg Hydroxyzine Pamoate (Hydroxyzine Pamoate 25 Mg Capsule) 25 mg PO QPM [facility] Stop: 11/02/25 20:59 Sodium Chloride (0.9% Sodium Chloride 1,000 Ml) 1,000 mls @ 0 mls/hr MISCELLANE.Q0M PRN PRN Reason: Dialysis Stop: 11/02/25 08:13 Last Infusion: 11/02/24 09:21 Dose: Infused Insulin Aspart (Insulin Aspart 300 Units/3 Ml) 0 units SUBCUT TID.WM.HS [facility]; Protocol Stop: 11/02/25 07:59 Last Admin: 11/02/24 10:29 Dose: Not Given Insulin Glargine (Insulin Glargine 300 Units/3 Ml Insuln.Pen) 20 units SUBCUT QHS [facility] Stop: 11/02/25 21:59 Isosorbide Mononitrate (Isosorbide Mononitrate 24hr Er 60 Mg Tab.Er.24h) 60 mg PO BID [facility] Stop: 11/02/25 08:59 Last Admin: 11/02/24 08:52 Dose: 60 mg Ondansetron HCl (Ondansetron 4 Mg/2 Ml Vial) 4 mg IV-PUSH Q8H PRN PRN Reason: Nausea And Vomiting Stop: 11/01/25 23:31 Pantoprazole Sodium (Pantoprazole 40 Mg Tablet.Dr) 40 mg PO DAILY [facility] Stop: 11/02/25 08:59 Last Admin: 11/02/24 08:52 Dose: 40 mg Paricalcitol (Paricalcitol 10 Mcg/2 Ml Vial) 5 mcg IV-PUSH MoWeFr@0815 [facility] Stop: 11/02/25 08:14 Last Admin: 11/02/24 09:18 Dose: 5 mcg Sertraline HCl (Sertraline 100 Mg Tablet) 100 mg PO DAILY [facility] Stop: 11/02/25 08:59 Last Admin: 11/02/24 08:52 [...] Appearance Clear Urine pH 7.0 Ur Specific [place] 1.010 Urine Protein 200 H Urine Glucose [...] Jr., D.O.11/02/2024 8:28 AM Dictation Location: RADIO-PC-22 Any impression(s) listed above is documentation that was entered by the reading physician into a diagnostic report(s) for Yoel Tamayo. I have reviewed the report(s) and am [...] disease on hemodialysis in February 2023 at [facility] unit on MWF schedule (2) Acute [...] MD 11/02/24 1202 Signed By: 11/02/24 1228 [facility]03-17-2025 Radiology Diagnostic study note [facility] [place] [address] [place] [address] CT Scan Report Signed Patient: Yoel Tamayo MR#: [id number] : 1985 Acct:[id number] Age/Sex: 39 / M ADM Date: 5 Loc: 3T Room: [address] [place] [address] Type: ADM INOo Attending Dr: Law Cano [...] anasarca. Impression dictated by: Yoel Mart Jr., Abdulkadir11/02/2024 8:47 AM Dictation Location: [place] [address] Transcribed By: [facility] 11/02/24846 Dictated By: Yoel Mart Jr, DO 11/02/24 0828 Signed By: 11/02/2447 [facility]03-17-2025 Radiology Diagnostic study note [facility] [place] [address] [place] [address] CT Scan Report Signed Patient: Yoel Tamayo MR#: [id number] : 1985 Acct:[id number] Age/Sex: 39 / M ADM Date: 5 Loc: 3T Room: [address] [place] [address] Type: ADM INOo Attending Dr: Law Cano [...] Mart Jr., D.OEsa11/02/2024 8:28 AM Dictation Location: [place] [address] Transcribed By: [facility] 11/02/24827 Dictated By: Yoel Mart Jr, DO 11/02/2427 Signed By: 11/02/2428 [facility]03-17-2025 History and physical note Author Judd Jacobs [facility] HospitalNote Date/TimeMarch 2024 11:46pm[place] [address] Hospitalist H&P Signed Patient: Yoel Tamayo MR#: [id number] : 1985 Acct:[id number] Age/Sex: 39 / M Adm Date: 5 Loc: Room: [address] [place] [address] Type: ADM INOo Attending Dr: Judd Jacobs [...] anithypertensive medications VTE prophyalxis- SCDs FULL CODE REPLACED BY [facility] Medical History Contusion of right lower extremity [...] Confirmed 11/01/24] 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 meter,continuous (FreeStyle Ramy 3 [place]) #1 ea 03/19/24 [Rx Confirmed 11/01/24] omeprazole [...] both eyes and all related structures Visual Rm: normal visual rm by confrontation Sclera: sclerae normal Pupils: PERRL [...] % (Auto) 13.5 % (.) 11/01/24 20:49 [place] % (Auto) 6.3 % (.) 11/01/24 20:49 Eos % (Auto) 5.7 % (.) 11/01/24 20:49 Baso % (Auto) 2.1 % (.) 11/01/24 20:49 Nucleat RBC Rel Count 0.0 /100 WBC (0-0.5) 11/01/24 20:49 Neut # (Auto) 4.3 x10E3/uL (1.8-7.7) 11/01/24 20:49 Lymph # (Auto) 0.8 x10E3/uL (1.00-4.8) L 11/01/24 20:49 [place] # (Auto) 0.4 x10E3/uL (0.0-0.8) 11/01/24 20:49 Eos # (Auto) 0.3 x10E3/uL (0.0-0.45) 11/01/24 20:49 Baso # (Auto) 0.1 x10E3/uL (0.0-0.2) 11/01/24 20:49 Monocyte Dist Width 17.06 % (0.00-20.00) 11/01/24 20:49 PT 13.5 Seconds (9.0-12.9) H 11/01/24 20:49 INR 1.2 11/01/24 20:49 PHA Creatinine Clear 10.86 11/01/24 20:49 Sodium 133 mmol/L (136-145) L 11/01/24 20:49 Potassium 6.4 mmol/L (3.5-5.1) H* 11/01/24:49 Chloride 97 mmol/L (98-107) L 11/01/24 20:49 [...] pH 7.0 (5.0-9.0) 11/01/24 21:56 Ur Specific [place] 1.010 (1.001-1.030) 11/01/24 21:56 Urine Protein 200 [...] days): 1 Documented By: Judd Jacobs MD 11/01/247 Signed By: <Electronically signed by Judd Jacobs MD> 11/01/24 2346 [facility] Work Phone: 1(996) 577-242203-17-2025 Evaluation note* Diagnosis Onset Date Resolution Status Admit Date [facility] 10:56pmT wave inversion in EKGacuteMar 2024 10:56pmUncontrolled hypertensionacuteMar 2024 10:56pmAcute hyperkalemia resolvedMarch 2024 10:56pmHypertensive CKD, ESRD on dialysisresolvedTr[facility] 2024 10:56pmMissed dialysisresolvedTr[facility] 2024 10:56pmSecondary hyperparathyroidismresolvedTr[facility] 2024 10:56pmUremiaresolvedTr[facility] 2024 10:56pmAnemia in chronic kidney diseaseinactiveTrinity Health [facility] 2024 10:56pmType 1 diabetes mellitus with hyperglycemiainactiveTrinity Health System [facility] 2024 10:56pmESRD (end stage renal disease) on dialysisdel[facility] 2024 10:56pmASHD (arteriosclerotic heart disease)acuteJanuary 12, 2025 2:40pmChronic bronchitis, mucopurulentacuteMay 2024 2:40pmChronic heart failure with preserved ejection fraction (HFpEF)acuteMay 2024 2:40pmContusion of right lower extremityacuteJanuary 12, 2025 2:40pmPrimary hypertensionacuteMay 2024 2:40pmType 1 diabetes mellitus with hyperglycemiaacuteMd2024 2:40pm [facility] Work Phone: 1(540) 412-446203-17-2025 Evaluation note* Diagnosis Onset Date Resolution Status Admit Date ESRD (end stage renal disease) [facility] 2024 10:56pmAcute hyperkalemiaresCrichton Rehabilitation [facility] 2024 10:56pm Hypertensive CKD, ESRD on dialysisresC[facility] 2024 10:56pmMissed dialysisresCrichton Rehabilitation Center 2024 10:56pmSecondary hyperparathyroidismresCass Lake Hospital 2024 10:56pmUremiaresCrichton Rehabilitation Center 2024 10:56pmAnemia in chronic kidney diseaseinaSelect Medical Specialty [facility] 2024 10:56pmType 1 diabetes mellitus with hyperglycemiainaSelect Medical Specialty Hospital - [facility] 2024 10:56pmESRD (end stage renal disease) on dialysisdelQuorum Health 2024 10:56pmT wave inversion in EKGdeletTooele Valley Hospital 2024 10:56pmUncontrolled hypertensionSaint John's Regional [facility] 2024 10:56pmASHD (arteriosclerotic heart disease)acuteMd2024 2:40pmChronic bronchitis, mucopurulentacuteMay 2024 2:40pmChronic heart failure with preserved ejection fraction (HFpEF)acuteJanuary 12, 2025 2:40pmDependence on renal dialysis acuteMay 2024 2:40pmESRD (end stage renal disease)acuteJanuary 12, 2025 2:40pmNicotine addictionacuteJanuary 12, 2025 2:40pmPrimary hypertensionacuteMay 2024 2:40pmRight shoulder painacuteMay 2024 2:40pmType 1 diabetes mellitus with hyperglycemiaacuteMay 2024 2:40pm [facility] Work Phone: [phone]) 807-960903-16-2025 [place] [address] Hospitalist H&P Signed Patient: Yoel Tamayo MR#: [id number] : 1985 Acct:[id number] Age/Sex: 39 / M Adm Date: 5 Loc: Room: [address] [place] [address] Type: ADM INOo Attending Dr: Judd Jacobs [...] anithypertensive medications VTE prophyalxis- SCDs FULL CODE REPLACED BY [facility] Medical History Contusion of right lower extremity [...] Confirmed 11/01/24] 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 meter,continuous (FreeStyle Ramy 3 [place]) #1 ea 03/19/24 [Rx Confirmed 11/01/24] omeprazole [...] both eyes and all related structures Visual Rm: normal visual rm by confrontation Sclera: sclerae normal Pupils: PERRL [...] % (Auto) 13.5 % (.) 11/01/24 20:49 [place] % (Auto) 6.3 % (.) 11/01/24 20:49 Eos % (Auto) 5.7 % (.) 11/01/24 20:49 Baso % (Auto) 2.1 % (.) 11/01/24 20:49 Nucleat RBC Rel Count 0.0 /100 WBC (0-0.5) 11/01/24 20:49 Neut # (Auto) 4.3 x10E3/uL (1.8-7.7) 11/01/24 20:49 Lymph # (Auto) 0.8 x10E3/uL (1.00-4.8) L 11/01/24 20:49 [place] # (Auto) 0.4 x10E3/uL (0.0-0.8) 11/01/24 20:49 [...] 20:49 Carbon Dioxide 19.5 mmol/L (21.0-31.0) L 11/01/24:49 Anion Gap 22.9 mEq/L (6.0-15.0) H 11/01/24 [...] pH 7.0 (5.0-9.0) 11/01/24 21:56 Ur Specific [place] 1.010 (1.001-1.030) 11/01/24 21:56 Urine Protein 200 [...] 1 Documented By: Judd Jacobs MD 11/01/24 1767 Signed By: 11/01/24 2346 [facility]03-11-2025 Note Attestation signed by Godwin Ortiz, [...] and discussed the session activities with the project intern, and reviewed and updated the medical record. I confirm the project intern's documentation. Please note there may be additional personal documentation from me. Department of Psychiatry Psychological Evaluation for Pre-Transplant - Kidney and Pancreas Time In: 10:07 Time Out: 11:07 Encounter Type: Off-Site Video at Remote Location Patient Name: Yoel Tamayo MRN / CSN: [id number] Date of / Age: 7 1985 / 39 y.o. / male Encounter Date: 10/27/24 Diagnosis: Diagnoses of Nicotine dependence, cigarettes, in remission, History of posttraumatic stress disorder (PTSD), History of anxiety, and Hx of major depression were pertinent to this visit. Care Team Encounter Provider: Maris Sinha Referring Physician (if known): No ref. 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 , male with [...] with the patient at his home in [place], [place] and the clinician at [facility] Department of Psychiatry. Relevant Medical History Per medical chart and patient report, patient was last seen by [facility] transplant provider, Dr. Cardenas, on 09/08/2024. Yoel Tamayo's medical history is significant for ESRD; T1DM with chronic kidney disease on chronic dialysis. Medical History Medical Diagnoses Patient Active Problem List Diagnosis Acute hypoxic respiratory failure (CMS/HCC) Acute metabolic encephalopathy Anasarca Anemia in chronic kidney disease Coronary artery disease involving pa[place]shosh[place] coronary artery of pa[place]shosh[place] heart without angina pectoris AV fistula stenosis BMI 21.0-21.9, adult Chest pain CHF (congestive heart failure) (CMS/HCC) Chronic bronchitis, mucopurulent (CMS/HCC) Chronic venous insufficiency Cigarette nicotine dependence without complication Current every day smoker Diabetes mellitus (CMS/HCC) Encephalopathy Erectile dysfunction due to arterial insufficiency End stage renal disease ([facility]) Hypertension, essential EBENEZER (generalized anxiety disorder) HCAP (healthcare-associated pneumonia) History of VA (myocardial infarction) Hyperkalemia Hyperlipidemia Hypertensive emergency Hypoxemia Ischemic cardiomyopathy MGUS (monoclonal gammopathy of unknown significance) Mild episode of recurrent major depressive disorder Monoclonal (M) protein disease, multiple 'M' protein Nicotine addiction NSTEMI (non-ST elevated myocardial infarction) ([facility]) Peyronie's disease Secondary hyperparathyroidism Status post insertion of drug eluting coronary artery stent Hypoglycemia unawareness associated with type 2 diabetes mellitus ([facility]) GERD (gastroesophageal reflux disease) Diabetic retinopathy ([facility]) COVID-19 Pre-transplant evaluation for kidney and pancreas [...] TAKE 1 TABLET OR (more content not included)...[facility]02-26-2025 Evaluation note* Diagnosis Onset Date Resolution Status Admit Date ASHD (arteriosclerotic heart disease) acuteFebruary 2024 12:55pmChronic bronchitis, mucopurulentacuteFebruary 2024 12:55pmChronic heart failure with preserved ejection fraction (HFpEF) acuteFebruary 2024 12:55pmContusion of right lower extremityacuteFebruary 2024 12:55pmPrimary hypertensionacuteFebruary 2024 12:55pmType 1 diabetes mellitus with hyperglycemiaacuteFebruary 2024 12:55pmESRD (end stage renal disease) on dialysisdeletedFebruary 2024 12:55pmNicotine addictiondeletedFebruary 2024 12:55pmESRD (end stage renal disease)acute November 01, 2024 10:56pmT wave inversion in EKGacuteMarch 2024 10:56pm Uncontrolled hypertensionacuteMarch 2024 10:56pmAcute hyperkalemiaresolved November 01, 2024 10:56pmHypertensive CKD, ESRD on dialysisresolved[facility] 2024 10:56pmMissed dialysisresolvedTr[facility] 2024 10:56pmSecondary hyperparathyroidismresolvedTr[facility] 2024 10:56pmUremiaresolvedTrinity Health [facility] 2024 10:56pmAnemia in chronic kidney diseaseinactiveTrinity Health System [facility] 2024 10:56pmType 1 diabetes mellitus with hyperglycemiainactiveTrinity Health System [facility] 2024 10:56pmESRD (end stage renal disease) on dialysisdeletedTrinity Health System [facility] 2024 10:56pm [facility] Work Phone: [phone]) 310-635302-10-[address] Mason, external vessels are free of calcification, but both common iliacs have posterior calcifications.[facility] 09-17-2024 Consult note Author Crow Conte [facility] Hospital[facility] Date/TimeJanuary 2024 3:42pm [place] [address] Pulmonology Consult Note Signed Patient: Yoel Tamayo MR#: [id number] : 1985 Acct:[id number] Age/Sex: 39 / M Adm Date: 5 Loc: Room: [address] [place] [address] Type: ADM IN Attending Dr: Toney Riley MD Copies to: MD Crow Henriquez MD Benjamin Ball,DO~ HPI Date/Time of Consultation: Date of Service: 09/17/2024 Time of Service: 10:45 Consulting Provider: Crow Conte Requesting Provider: Toney Riley Reason for Consult: COVID pneumonia History of Present Illness History of present illness: Mr. Tamayo is a 39 year old male with [...] a dry cough for the past 3 weekswhich is not worsening. He denies any shortness of breath, fever, or chills currently. Patient states he is awaiting pancreas and kidney transplant. Review of Systems Review of Systems All other systems reviewed & are negative unless noted below or in HPI REPLACED BY [facility] Medical History (Updated 09/16/24 @ 12:27 by Angel Cook MD) Chronic heart failure with preserved ejection [...] Confirmed 09/16/24] 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 meter,continuous (FreeStyle Ramy 3 [place]) #1 ea 03/02/24 [Rx Confirmed 09/02/24] 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 meter,continuous (FreeStyle Ramy 3 [place]) #1 ea 03/19/24 [Rx Confirmed 09/02/24] omeprazole [...] Pulmonary: Diminished breath sounds to both lung rm without wheezing. Cardiovascular: Regular rate and rhythm. [...] infiltrate but no signs or symptoms suggesting acutepneumonic process. Acute COVID infection with febrile illness and high risk patient with renal failure on hemodialysisbut with good saturation on room air and [...] point. Documented By: Crow Conte MD 09/17/24 104 Signed By: <Electronically signed by Crow Conte MD> 09/17/24 1549 [facility] Work Phone: 1(779) 404-334001-30-2025 Radiology Diagnostic study noteCorey Hospital01-30-2025 Progress note Author Angel Cook [facility] HospitalNote Date/TimeJanuary 2024 11:12am [place] [id number] Nephrology Progress Note Signed Patient: Yoel Tamayo MR#: [id number] : 1985 Acct:[id number] Age/Sex: 39 / M Adm Date: 5 Loc: 3T Room: [address] [place] [address] Type: ADM IN Attending Dr: Toney Riley MD Copies to: ~ Date of Service: 09/17/2024 Subjective Subjective Narrative: This is a 39-year-old male well-known to me from outpatient [facility] dialysis unit was a presented emergency room for abdominal pain and nausea. Patient has a ESRD due to the diabetic nephropathy andhypertensive nephrosclerosis. He currently goes to the [facility] 3 times a week on MWF schedule. He has a AV fistula as a dialysis access. 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 Patient on evaluation emergency room was tested positive for COVID. His chest x-ray showedfocal left basilar atelectasis or infiltrate. He had a CT scan which showed no bowel obstruction mild constipation. Nephrology is consulted for ESRD management d uring the hospital stay. Interim history Patient was seen and examined bedside he is still feeling weak and lethargic. He had a multiple bowel movements that the bowel regimen. He denies any chest pain palpation nausea vomiting. Still feelsshort of breath. Exam Physical Exam Vital Signs: [...] Skin: No rashes , warm to touch 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,Alert, following simple command Musculoskeletal: No swelling [...] 75 Mg Tablet) 75 mg PO DAILY [facility] Stop: 09/16/25 08:59 Last Admin: 09/17/24 10:19 Dose: 75 mg Dextrose (Dextrose 50% In Water 25 Gm/50 Ml Syringe) 0 gm IV-PUSH PRN PRN PRN Reason: Hypoglycemia Stop: 09/16/25 02:16 Last Admin: 09/17/24 04:09 Dose: 50 gm Epoetin Alexus (Epoetin Alexus (Esrd Use) 20,000 Unit/Ml Vial) 11,000 unit IV-PUSH MoWeFr@1000 [facility]; Protocol Stop: 09/16/25 09:59 Last Admin: 09/16/24 11:59 Dose: 11,000 unit Famotidine (Famotidine 20 Mg Tablet) 40 mg PO QPM [facility] Stop: 09/16/25 20:59 Last Admin: 09/16/24 21:46 Dose: 40 mg Furosemide (Furosemide 80 Mg Tablet) 80 mg PO BID@0800,1600 [facility] Stop: 09/16/25 07:59 Last Admin: 09/17/24 10:19 [...] 50 Mg Tablet) 100 mg PO BID [facility] Stop: 09/16/25 08:59 Last Admin: 09/17/24 10:19 Dose: 100 mg Hydroxyzine Pamoate (Hydroxyzine Pamoate 25 Mg Capsule) 25 - 50 mg PO HS [facility] Stop: 09/16/25 21:59 Last Admin: 09/16/24 21:47 Dose: 50 mg Ceftriaxone Sodium (Rocephin) 1 gm in 50 mls @ 100 mls/hr IV Q24H [facility] Last Infusion: 09/17/24 00:32 Dose: Infused Sodium Chloride (0.9% Sodium Chloride 1,000 Ml) 1,000 mls @ 0 mls/hr MISCELLANE.Q0M PRN PRN Reason: Dialysis Stop: 09/16/25 09:22 Last Infusion: 09/16/24 12:02 Dose: Infused Insulin Aspart (Insulin Aspart 300 Units/3 Ml) 0 units SUBCUT TID.[facility]; Protocol Stop: 09/16/25 07:59 Last Admin: 09/17/24 10:20 Dose: Not Given Insulin Glargine (Insulin Glargine 300 Units/3 Ml Insuln.Pen) 10 units SUBCUT [facility] Stop: 09/17/25 21:59 Isosorbide Mononitrate (Isosorbide Mononitrate 24hr Er 60 Mg Tab.Er.24h) 60 mg PO BID [facility] Stop: 09/16/25 08:59 Last Admin: 09/17/24 10:19 Dose: 60 mg Lisinopril (Lisinopril 20 Mg Tablet) 20 mg PO DAILY [facility] Stop: 09/16/25 08:59 Last Admin: 09/17/24 10:19 [...] 40 Mg Tablet.Dr) 40 mg PO BID [facility] Stop: 09/16/25 08:59 Last Admin: 09/17/24 10:18 Dose: 40 mg Paricalcitol (Paricalcitol 10 Mcg/2 Ml Vial) 5 mcg IV-PUSH MoWeFr@1000 [facility] Stop: 09/16/25 09:59 Last Admin: 09/16/24 12:00 [...] physician into a diagnostic report(s) for Yoel Tamayo. I have reviewed the report(s) and am [...] primary hospitalist team. * Documented By: Angel Cook MD 09/17/24 1111 Signed By: <Electronically signed by Angel Cook MD> 09/17/24 1112 [facility] Work Phone: [phone]) 425-264201-29-2025 Consult note Author Angel Cook [facility] Date/TimeJanuary 2024 12:40pm [place] [address] Nephrology Consult Note Signed Patient: Yoel Tamayo MR#: [id number] : 1985 Acct:[id number] Age/Sex: 39 / M Adm Date: 5 Loc: Room: [address] [place] [address] Type: ADM IN Attending Dr: Enrique Kirby DO Copies to: MD Eusebio Castellano DO Neal R Majumdar, DO~ Providers Consult Date: 09/16/24 Requesting Provider: Enrique Kirby DO Primary Care Provider: Eusebio Olivares DO HPI Reason for Consult: ESRD management History of Present Illness: This is a 39-year-old male well-known to me from outpatient [facility] dialysis unit was a presented emergency room for abdominal pain and nausea. Patient has a ESRD due to the diabetic nephropathy andhypertensive nephrosclerosis. He currently goes to the [facility] 3 times a week on MWF schedule. He has a AV fistula as a dialysis access. 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 Patient on evaluation emergency [...] polydipsia Dermatological: denies any itching or rash REPLACED BY [facility] Medical History (Updated 09/16/24 @ 12:27 by Angel Cook MD) Chronic heart failure with preserved ejection [...] Confirmed 09/16/24] 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 meter,continuous (FreeStyle Ramy 3 [place]) #1 ea 03/02/24 [Rx Confirmed 09/02/24] 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 meter,continuous (FreeStyle Ramy 3 [place]) #1 ea 03/19/24 [Rx Confirmed 09/02/24] omeprazole [...] 667 Mg Capsule) 1,334 mg PO TID.WITH.MEALS [facility] Stop: 09/16/25 07:59 Last Admin: 09/16/24 10:52 Dose: 1,334 mg Carvedilol (Carvedilol 25 Mg Tablet) 25 mg PO BID [facility] Stop: 09/16/25 08:59 Last Admin: 09/16/24 10:50 Dose: 25 mg Clopidogrel Bisulfate (Clopidogrel Bisulfate 75 Mg Tablet) 75 mg PO DAILY [facility] Stop: 09/16/25 08:59 Last Admin: 09/16/24 10:53 Dose: 75 mg Dextrose (Dextrose 50% In Water 25 Gm/50 Ml Syringe) 0 gm IV-PUSH PRN PRN PRN Reason: Hypoglycemia Stop: 09/16/25 02:16 Epoetin Alexus (Epoetin Alexus (Esrd Use) 20,000 Unit/Ml Vial) 11,000 unit IV-PUSH MoWeFr@1000 [facility]; Protocol Stop: 09/16/25 09:59 Famotidine (Famotidine 20 Mg Tablet) 40 mg PO QPM [facility] Stop: 09/16/25 20:59 Furosemide (Furosemide 80 Mg Tablet) 80 mg PO BID@0800,1600 [facility] Stop: 09/16/25 07:59 Last Admin: 09/16/24 10:51 [...] 50 Mg Tablet) 100 mg PO BID [facility] Stop: 09/16/25 08:59 Last Admin: 09/16/24 10:52 Dose: 100 mg Hydroxyzine Pamoate (Hydroxyzine Pamoate 25 Mg Capsule) 25 - 50 mg PO HS [facility] Stop: 09/16/25 21:59 Ceftriaxone Sodium (Rocephin) 1 gm in 50 mls @ 100 mls/hr IV Q24H [facility] Sodium Chloride (0.9% Sodium Chloride 1,000 Ml) 1,000 mls @ 0 mls/hr MISCELLANE.Q0M PRN PRN Reason: Dialysis Stop: 09/16/25 09:22 Insulin Aspart (Insulin Aspart 300 Units/3 Ml) 0 units SUBCUT TID.[facility]; Protocol Stop: 09/16/25 07:59 Last Admin: 09/16/24 09:30 Dose: Not Given Insulin Glargine (Insulin Glargine 300 Units/3 Ml Insuln.Pen) 20 units SUBCUT [facility] Stop: 09/16/25 21:59 Isosorbide Mononitrate (Isosorbide Mononitrate 24hr Er 60 Mg Tab.Er.24h) 60 mg PO BID [facility] Stop: 09/16/25 08:59 Last Admin: 09/16/24 10:52 Dose: 60 mg Lisinopril (Lisinopril 20 Mg Tablet) 20 mg PO DAILY [facility] Stop: 09/16/25 08:59 Last Admin: 09/16/24 10:51 [...] 40 Mg Tablet.Dr) 40 mg PO BID [facility] Stop: 09/16/25 08:59 Last Admin: 09/16/24 10:51 Dose: 40 mg Paricalcitol (Paricalcitol 10 Mcg/2 Ml Vial) 5 mcg IV-PUSH MoWeFr@1000 [facility] Stop: 09/16/25 09:59 Sennosides (Sennosides 8.6 Mg Tablet) 8.6 mg PO BID [facility] Stop: 09/16/25 08:59 Last Admin: 09/16/24 10:53 Dose: 8.6 mg Sertraline HCl (Sertraline 100 Mg Tablet) 100 mg PO DAILY [facility] Stop: 09/16/25 08:59 Last Admin: 09/16/24 10:55 [...] Skin: No rashes , warm to touch 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,Alert, following simple command Musculoskeletal: No swelling or limitation of movement of the large joints Psychiatric: Cooperative, normal mood and affect Results - Nephrology Labs 09/16/24 04:45 09/16/24 04:52 Labs: 09/15/24 09/16/24 09/16/24 21:34 04:52 08:39 BUN 49 H 52 H Creatinine 6.29 H 6.71 H Albumin 4.0 Urine Color Yellow Urine Appearance Cloudy A Urine pH >= 9.0 Ur Specific [place] 1.012 Urine Protein 300 H Urine Glucose [...] Alec Flynn M.D.09/15/2024 11:16 PM Dictation Location: [place] [address] Any impression(s) listed above is documentation that was entered by the reading physician into a diagnostic report(s) for Yoel Tamayo. I have reviewed the report(s) and am [...] us with any question. Documented By: Angel Cook MD 09/16/24 1139 Signed By: <Electronically signed by Angel Cook MD> 09/16/24 4745 [facility] Work Phone: 1([phone]) 200-269901-29-2025 Consult note[place] [id number] Nephrology Consult Note Signed Patient: Yoel Tamayo MR#: [id number] : 1985 Acct:[id number] Age/Sex: 39 / M Adm Date: 5 Loc: 3T Room: 2R7399-7 Type: ADM IN Attending Dr: Enrique Kirby DO Copies to: MD Eusebio Castellano DO Neal R Majumdar, DO~ Providers Consult Date: 09/16/24 Requesting Provider: Enrique Kirby DO Primary Care Provider: Eusebio Olivares DO HPI Reason for Consult: ESRD management History of Present Illness: This is a 39-year-old male well-known to me from outpatient [facility] dialysis unit was a presented emergency room for abdominal pain and nausea. Patient has a ESRD due to the diabetic nephropathy andhypertensive nephrosclerosis. He currently goes to the [facility] 3 times a week on MWF schedule. He has a AV fistula as a dialysis access. 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 Patient on evaluation emergency [...] polydipsia Dermatological: denies any itching or rash REPLACED BY [facility] Medical History (Updated 09/16/24 @ 12:27 by Angel Cook MD) Chronic heart failure with preserved ejection [...] HS 11/26/23 [History Confirmed 09/16/24] 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 meter,continuous (ManifactStyle Ramy 3 [place]) #1 ea 03/02/24 [Rx Confirmed 09/02/24] 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 meter,continuous (FreeStyle Ramy 3 [place]) #1 ea 03/19/24 [Rx Confirmed 09/02/24] omeprazole [...] 10 Mg Tablet) 10 mg PO DAILY [facility] Stop: 09/16/25 10:29 Last Admin: 09/16/24 10:53 Dose: 10 mg Aspirin (Aspirin 81 Mg Tab.Chew) 81 mg PO QAM [facility] Stop: 09/16/25 08:59 Last Admin: 09/16/24 10:50 Dose: 81 mg Atorvastatin Calcium (Atorvastatin 80 Mg Tablet) 80 mg PO QPM [facility] Stop: 09/16/25 08:59 Azithromycin (Azithromycin 250 Mg Tablet) 250 mg PO Q24H [facility] Stop: 09/19/24 21:01 Calcium Acetate (Calcium Acetate 667 Mg Capsule) 1,334 mg PO TID.WITH.MEALS [facility] Stop: 09/16/25 07:59 Last Admin: 09/16/24 10:52 Dose: 1,334 mg Carvedilol (Carvedilol 25 Mg Tablet) 25 mg PO BID [facility] Stop: 09/16/25 08:59 Last Admin: 09/16/24 10:50 Dose: 25 mg Clopidogrel Bisulfate (Clopidogrel Bisulfate 75 Mg Tablet) 75 mg PO DAILY [facility] Stop: 09/16/25 08:59 Last Admin: 09/16/24 10:53 Dose: 75 mg Dextrose (Dextrose 50% In Water 25 Gm/50 Ml Syringe) 0 gm IV-PUSH PRN PRN PRN Reason: Hypoglycemia Stop: 09/16/25 02:16 Epoetin Alexus (Epoetin Alexus (Esrd Use) 20,000 Unit/Ml Vial) 11,000 unit IV-PUSH MoWeFr@1000 [facility]; Protocol Stop: 09/16/25 09:59 Famotidine (Famotidine 20 Mg Tablet) 40 mg PO QPM [facility] Stop: 09/16/25 20:59 Furosemide (Furosemide 80 Mg Tablet) 80 mg PO BID@0800,1600 [facility] Stop: 09/16/25 07:59 Last Admin: 09/16/24 10:51 [...] 50 Mg Tablet) 100 mg PO BID [facility] Stop: 09/16/25 08:59 Last Admin: 09/16/24 10:52 Dose: 100 mg Hydroxyzine Pamoate (Hydroxyzine Pamoate 25 Mg Capsule) 25 - 50 mg PO [facility] Stop: 09/16/25 21:59 Ceftriaxone Sodium (Rocephin) 1 gm in 50 mls @ 100 mls/hr IV Q24H [facility] Sodium Chloride (0.9% Sodium Chloride 1,000 Ml) 1,000 mls @ 0 mls/hr MISCELLANE.Q0M PRN PRN Reason: Dialysis Stop: 09/16/25 09:22 Insulin Aspart (Insulin Aspart 300 Units/3 Ml) 0 units SUBCUT TID.[facility]; Protocol Stop: 09/16/25 07:59 Last Admin: 09/16/24 09:30 Dose: Not Given Insulin Glargine (Insulin Glargine 300 Units/3 Ml Insuln.Pen) 20 units SUBCUT [facility] Stop: 09/16/25 21:59 Isosorbide Mononitrate (Isosorbide Mononitrate 24hr Er 60 Mg Tab.Er.24h) 60 mg PO BID [facility] Stop: 09/16/25 08:59 Last Admin: 09/16/24 10:52 Dose: 60 mg Lisinopril (Lisinopril 20 Mg Tablet) 20 mg PO DAILY [facility] Stop: 09/16/25 08:59 Last Admin: 09/16/24 10:51 [...] 40 Mg Tablet.Dr) 40 mg PO BID [facility] Stop: 09/16/25 08:59 Last Admin: 09/16/24 10:51 Dose: 40 mg Paricalcitol (Paricalcitol 10 Mcg/2 Ml Vial) 5 mcg IV-PUSH MoWeFr@1000 [facility] Stop: 09/16/25 09:59 Sennosides (Sennosides 8.6 Mg Tablet) 8.6 mg PO BID [facility] Stop: 09/16/25 08:59 Last Admin: 09/16/24 10:53 Dose: 8.6 mg Sertraline HCl (Sertraline 100 Mg Tablet) 100 mg PO DAILY [facility] Stop: 09/16/25 08:59 Last Admin: 09/16/24 10:55 [...] Skin: No rashes , warm to touch 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,Alert, following simple command Musculoskeletal: No swelling or limitation of movement of the large joints Psychiatric: Cooperative, normal mood and affect Results - Nephrology Labs 09/16/24 04:45 09/16/24 04:52 Labs: 09/15/24 09/16/24 09/16/24 21:34 04:52 08:39 BUN 49 H 52 H Creatinine 6.29 H 6.71 H Albumin 4.0 Urine Color Yellow Urine Appearance Cloudy A Urine pH >= 9.0 Ur Specific [place] 1.012 Urine Protein 300 H Urine Glucose (UA) 250 H Urine Ketones Negative Urine Occult Blood 1+ H Urine Nitrite Negative Ur Leukocyte Esterase Negative Urine RBC 10-19 H Urine WBC 1-2 Urine Bacteria None seen Radiology Impressions Impressions - last 24 hours: Impressions Chest X-Ray 09/15/24 21:30 IMPRESSION: Focal left basilar atelectasis/infiltrate Impression dictated by: Alec Flynn M.D.09/15/2024 10:19 PM Dictation Location: [place] [address] Abdomen/Pelvis CT 09/15/24 22:55 IMPRESSION: No bowel obstruction. Mild constipation. Impression dictated by: Alec Flynn M.D.09/15/2024 11:16 PM Dictation Location: [place] [address] Any impression(s) listed above is documentation that was entered by the reading physician into a diagnostic report(s) for Yoel Tamayo. I have reviewed the report(s) and am [...] us with any question. Documented By: Angel Cook MD 09/16/24 1136 Signed By: 09/16/24 1240 [facility] History and physical note Author Brigid Salvador [facility] HospitalNote Date/TimeJanuary 2024 5:03am [place] [address] Hospitalist H&P Signed Patient: Yoel Tamayo MR#: [id number] : 1985 Acct:[id number] Age/Sex: 39 / M Adm Date: 5 Loc: Room: [address] [place] [address] Type: ADM IN Attending Dr: Julio Allen MD Copies to: DO Julio Leblanc MD Paula G Smith, GUT SNATCHER~ HPI DATE OF EXAMINATION: 09/16/24 CHIEF COMPLAINT: abdominal pain, difficulty urinating HISTORY OF PRESENT ILLNESS: Mr. Tamayo is a 39-year-old male with a PMH [...] poor stream x 2. Hebeen up to [facility] yesterday for testing for his [...] will be admitted as inpatient to the [facility] telemetry floor. Review of Systems Review of Systems Review of systems: A 10 point review of systems was obtained, negative unless noted in the HPI or below. REPLACED BY [facility] Medical History (Updated 09/16/24 @ 03:38 by Brigid Salvador APRN) Chronic heart failure with preserved ejection [...] Confirmed 09/16/24] 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 meter,continuous (FreeStyle Ramy 3 [place]) #1 ea 03/02/24 [Rx Confirmed 09/02/24] 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 meter,continuous (FreeStyle Ramy 3 [place]) #1 ea 03/19/24 [Rx Confirmed 09/02/24] omeprazole [...] % (Auto) 11.0 % (.) 09/15/24 21:34 [place] % (Auto) 10.9 % (.) 09/15/24 21:34 Eos % (Auto) 1.8 % (.) 09/15/24 21:34 Baso % (Auto) 1.4 % (.) 09/15/24 21:34 Nucleat RBC Rel Count 0.1 /100 WBC (0-0.5) 09/15/24 21:34 Neut # (Auto) 2.6 x10E3/uL (1.8-7.7) 09/15/24 21:34 Lymph # (Auto) 0.4 x10E3/uL (1.00-4.8) L 09/15/24 21:34 Greeley # (Auto) 0.4 x10E3/uL (0.0-0.8) 09/15/24 21:34 [...] (# of days): 3 Documented By: Brigid Salvador APRN 09/16/24 0323 Signed By: <Electronically signed by JOSH Salvador> 09/16/24 0357 <Electronically signed by Julio Allen MD> 09/16/24 0503 [facility] Work Phone: 1(503) 602-695501-29-2025 History and physical note Author Brigid Salvdaor [facility] Date/TimeJanuary 2024 5:03am [place] [address] Hospitalist H&P Signed Patient: Yoel Tamayo MR#: [id number] : 1985 Acct:[id number] Age/Sex: 39 / M Adm Date: 5 Loc: Room: [address] [place] [address] Type: ADM IN Attending Dr: Julio Allen MD Copies to: DO Julio Leblanc MD Paula G Smith, JOSH~ HPI DATE OF EXAMINATION: 09/16/24 CHIEF COMPLAINT: abdominal pain, difficulty urinating HISTORY OF PRESENT ILLNESS: Mr. Tamayo is a 39-year-old male with a PMH [...] poor stream x 2. Hebeen up to [facility] yesterday for testing for his [...] will be admitted as inpatient to the [facility] telemetry floor. Review of Systems Review of Systems Review of systems: A 10 point review of systems was obtained, negative unless noted in the HPI or below. REPLACED BY [facility] Medical History (Updated 09/16/24 @ 03:38 by Brigid Salvador APRN) Chronic heart failure with preserved ejection [...] Confirmed 09/16/24] 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 meter,continuous (FreeStyle Ramy 3 [place]) #1 ea 03/02/24 [Rx Confirmed 09/02/24] 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 meter,continuous (FreeStyle Ramy 3 [place]) #1 ea 03/19/24 [Rx Confirmed 09/02/24] omeprazole [...] 09/15/24 21:34 MPV 7.5 fl (6.6-10.1) 09/15/24 21: Neut % (Auto) 74.9 % (.) 09/15/24 21:34 Lymph % (Auto) 11.0 % (.) 09/15/24 21: Greeley % (Auto) 10.9 % (.) 09/15/24 21:34 Eos % (Auto) 1.8 % (.) 09/15/24 21:34 Baso % (Auto) 1.4 % (.) 09/15/24 21:34 Nucleat RBC Rel Count 0.1 /100 WBC (0-0.5) 09/15/24 21:34 Neut # (Auto) 2.6 x10E3/uL (1.8-7.7) 09/15/24 21:34 Lymph # (Auto) 0.4 x10E3/uL (1.00-4.8) L 09/15/24 21:34 Greeley # (Auto) 0.4 x10E3/uL (0.0-0.8) 09/15/24 21: [...] (# of days): 3 Documented By: Brigid Salvador APRN 09/16/24 0323 Signed By: <Electronically signed by JOSH Salvador> 09/16/24 0357 <Electronically signed by Julio Allen MD> 09/16/24 0503 [facility] Work Phone: 1(823) 219-683301-29-2025 [place] [address] Hospitalist H&P Signed Patient: Yoel Tamayo MR#: [id number] : 1985 Acct:[id number] Age/Sex: 39 / M Adm Date: 5 Loc: Room: [address] [place] [address] Type: ADM IN Attending Dr: Julio Allen MD Copies to: DO Julio Leblanc MD Paula G Smith, APRN~ HPI DATE OF EXAMINATION: 09/16/24 CHIEF COMPLAINT: abdominal pain, difficulty urinating HISTORY OF PRESENT ILLNESS: Mr. Tamayo is a 39-year-old male with a PMH [...] poor stream x 2. Hebeen up to [facility] yesterday for testing for his [...] will be admitted as inpatient to the [facility] telemetry floor. Review of Systems Review of Systems Review of systems: A 10 point review of systems was obtained, negative unless noted in the HPI or below. REPLACED BY [facility] Medical History (Updated 09/16/24 @ 03:38 by Brigid Salvador APRN) Chronic heart failure with preserved ejection [...] Confirmed 09/16/24] 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 meter,continuous (FreeStyle Ramy 3 [place]) #1 ea 03/02/24 [Rx Confirmed 09/02/24] 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 meter,continuous (FreeStyle Ramy 3 [place]) #1 ea 03/19/24 [Rx Confirmed 09/02/24] omeprazole [...] 09/15/24 21:34 MCV 86.1 fl (83.5-101) 09/15/24 21: MCH 29.0 pg (27.5-35.2) 09/15/24 21: MCHC 33.6 g/dL (32.5-35.6) 09/15/24 21:34 RDW 14.0 % (12.0-14.8) 09/15/24 21:34 Plt Count 113 x10E3/uL (150-450) L 09/15/24 21:34 MPV 7.5 fl (6.6-10.1) 09/15/24 21:34 Neut % (Auto) 74.9 % (.) 09/15/24 21: Lymph % (Auto) 11.0 % (.) 09/15/24 21: [place] % (Auto) 10.9 % (.) 09/15/24 21:34 Eos % (Auto) 1.8 % (.) 09/15/24 21:34 Baso % (Auto) 1.4 % (.) 09/15/24 21:34 Nucleat RBC Rel Count 0.1 /100 WBC (0-0.5) 09/15/24 21:34 Neut # (Auto) 2.6 x10E3/uL (1.8-7.7) 09/15/24 21:34 Lymph # (Auto) 0.4 x10E3/uL (1.00-4.8) L 09/15/24 21:34 [place] # (Auto) 0.4 x10E3/uL (0.0-0.8) 09/15/24 21:34 [...] nephrology for dialysis treatment, patient is on M/W/ schedule HTN GERD DVT PPx?heparin Diet order?1800 [...] (# of days): 3 Documented By: Brigid Salvador APRN 09/16/24 3430 Signed By: 09/16/24 4494 09/16/24 4338 [facility]01-[facility] Radiology Diagnostic study note [facility] [place] [address] [place] [address] CT Scan Report Signed Patient: Yoel Tamayo MR#: [id number] : 1985 Acct:[id number] Age/Sex: 39 / M ADM Date: 5 Loc: ER Room: Type: [facility] ER Attending Dr: Copies to: Romain Roy [...] Alec Flynn M.D.09/15/2024 11:16 PM Dictation Location: [place] [address] Transcribed By: [facility] 09/15/242315 Dictated By: Alec Flynn DO 09/15/242311 Signed By: 09/15/242315 [facility]01-21-2025 NoteI saw the patient in the [...] information and patient financial responsibility forms they signed.[facility]01-21-2025 NoteCoordinator met with patient for kidney/pancreas transplant evaluation appointment in Transplant clinic today. Explained transplant process and consents with patient. Answered patient questions. Social work, finance and vest finisher in to see patient. Dr. King in for H&P and transplant plan. Dr. Cardenas in for surgical evaluation. Coordinator provided copy of plan to patient and reviewed it with them. Patient aware further testing needed and to keep transplant team updated. Understanding verbalized by patient. Superintendent Refuse Disposal provided verbal order for patient labs. Work-up Needed-Date of Eval Letter Mailed to patient and faxed to Superintendent Refuse Disposal/ Dialysis Center. Product Safety Consultant provided patient TE folder with education on various transplant consents, the workup process, surgery details, postop expectations, transplant statistics, and living donor information. Answered patient questions and verified understanding.[facility]01-21-2025 NotePre- Transplant Kidney Evaluation Surgery Consultation Chief Complaint Patient presents with Kidney Eval Pancreas Eval PCP: Eusebio Olivares, Txp Referring: Nancy Haas Preferred Pharmacy: [facility]/pharmacy #[id number] [place] [address] Organ: Kidney/Pancreas Subjective Visit Vitals BP (!) [...] Review Audit Reviewed by Lesa Hurt MA (Associate Sales) on 09/08/24 at 0907 Medication Order Taking? Sig Documenting Provider Last Dose Status Accu-Chek Guide Me Glucose Mtr [facility] [id number] Yes See administration instructions. Historical ProviderMD Taking Active Accu-Chek Guide test strips strip [id number] Yes USE TO TEST FOUR TIMES A DAY DIRECTED Historical Provider, Taking Active Accu-Chek Softclix Lancets [facility] [id number] Yes USE TO TEST BLOOD SUGAR TWICE DAILY Historical Provider, Taking Active albuterol 90 mcg/actuation inhaler [id number] Yes 2 puffs. Historical Provider, Taking Active aluminum sulfate-calcium acetate ([place]) 952-1,347 mg packet [id number] Yes 1,334 mg. Historical Provider, Taking Active amLODIPine (Norvasc) 5 mg tablet [id number] Yes Take 1 tablet (5 mg) by mouth in the morning. Patient taking differently: Take 10 mg by mouth in the morning. Stephen Asencio MD Taking Differently Active aspirin 81 mg chewable tablet [id number] Yes 81 mg in the morning. Historical Provider, Taking Active atorvastatin (Lipitor) 80 mg tablet [id number] Yes 80 mg in the morning. Historical Provider, Taking Active azithromycin (Zithromax) 250 mg tablet [id number] No TAKE 1 TABLET ORALLY EVERY 24 HOURS FOR 3 DAYS START 08/30/24 Historical ProviderMD Not Taking Active calcium acetate (Phoslo) 667 mg capsule [id number] Yes Take 1,334 mg by mouth. Historical ProviderMD Taking Active carvedilol (Coreg) 25 mg tablet [id number] Yes Take 25 mg by mouth with breakfast and with evening meal. Historical ProviderMD Taking Active cephalexin (Keflex) 500 mg capsule [id number] No Take 1 capsule by mouth Twice daily at 6am and 6pm. Historical ProviderMD Not Taking Active clopidogrel (Plavix) 75 mg tablet [id number] Yes Take 75 mg by mouth in the morning. Historical ProviderMD Taking Active Dexcom G6 Sensor device [id number] Yes CHANGE SENSOR EVERY 10 DAYS. ICD 10 E10.65 Historical MD Ramo Taking Active Dexcom G6 Transmitter device [id number] Yes CHANGE EVERY 90 DAYS DX E10.65 Historical ProviderMD Taking Active diclofenac (Voltaren) 1 % topical gel [id number] Yes Apply 2 g topically 3 times a day. Historical ProviderMD Taking Active famotidine (Pepcid) 20 mg tablet [id number] Yes 20 mg in the morning. Historical Provider, Taking Active ferric gluconate (Ferrlecit) 62.5 mg/5 mL injection [id number] Yes Infuse 62.5 mg into a venous catheter. Historical ProviderMD Taking Active furosemide (Lasix) 40 mg tablet [id number] Yes Take 80 mg by mouth two times daily. Historical MD Ramo Taking Active heparin sodium,porcine/PF (heparin, porcine, PF,) 1,000 unit/mL solution [id number] Yes Infuse 1,000 Units into a venous catheter. Historical ProviderMD Taking Active hydrALAZINE (Apresoline) 100 mg tablet [id number] Yes Take 100 mg by mouth two times daily. Historical MD Ramo Taking Active hydrOXYzine HCL (Atarax) 25 mg tablet [id number] Yes Take 25 mg by mouth in the morning. Historical ProviderMD Taking Active hyoscyamine (Anaspaz,Levsin) 0.125 mg tablet [id number] Yes TAKE 1 TABLET BY MOUTH EVERY 6 HOURS NEEDED FOR ABDOMINAL PAIN Historical MD Ramo Taking Active insulin glargine (Lantus) 100 unit/mL (3 mL) injection pen [id number] Yes Inject 20 Units under the skin in the morning. Historical MD Ramo Taking Active insulin lispro (HumaLOG) 100 unit/mL injection pen [id number] Yes Inject 4 times a day before meals & bedtime. [id number]=3ybnyo; 170-189=3units; 190-209=4units; 210-229=6units; 230-249=8units; 250-269=9units; 270-289=10units; 290-300=12units; >300=14units & notify provider Lexis Ralph MD Taking Active isosorbide mononitrate ER (Imdur) 60 mg 24 hr tablet [id number] Yes Take 60 mg by mouth two times daily. Historical ProviderMD Taking Active lisinopril 20 mg tablet [id number] Yes 20 mg in the morning. Historical ProviderMD Taking Active loratadine (Claritin) 10 mg tablet [id number] Yes Take 10 mg by mouth every other day. Historical MD Ramo Taking Active nitroglycerin (Nitrostat) 0.4 mg SL tablet [id number] Yes 0.4 mg. Historical ProviderMD Taking Active omep (more content not included)...[facility]01-21-2025 NoteIdentifying Information Name: Yoel Tamayo : 1985 Assessment date: 09/08/2024 Transplant type: Pancreas Transplant Evaluation - 09/08/2024 Primary language: [place] Islander Zoroastrian/spirituality: Christian People present at assessment: none Do you have any sabianist, ethical or personal objections to accepting blood products, surgery and/or transplant? No Citizenship Where were you born? In the [place] in [place], [place] Where do you currently live or are staying? [place] - 1 hour Family Background and Supportive Relationships Parents: Mother- , pancreatic cancer. Father- living, healthy Siblings: 1 sister, healthy Children: Other 4 bio, 1 adoptive, 1 Number of children, living or (UNOS question): 6 Names, age, health status, relationship, address: Sharon, 13, healthy, Óscar Castellano, 12, healthy, Gilchrist Kuldeep, 10, healthy, Óscar [place], 9, healthy, Óscar-- had been a twin with son that passed Adoptive son- Jet, 6 Marital/relationship status: Household composition: Lives alone Support / Caregiver Plans Who will be your primary caregiver? 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 Able to drive. Who will be your secondary caregiver(s)? mother and/or father Jake Contact #: [phone] Health status & availability: Healthy, retired, able [...] # Group # [employer]* YOEL TAMAYO [id number] [address] MEDICAID [facility]* YOEL TAMAYO [id number] [address] [facility] Are you aware of a coordination of benefits with your insurance and Medicare (if applicable)? yes Are you receiving assistance through [facility] JANAE Program: No Medication Coverage [...] Start End Type Center Comments 03/01/2023 Hemo [facility] Dialysis Center Information [facility] Address: [address] [place] [address] Dialysis Schedule: MWF 7am- 3.5 hours, 2-4kg pulled Treatment Compliance / Adherence How do you manage your medications now? Memory and Pillbox Do you have any difficulties in getting or taking your medications? Now using [employer] ramy plus, no issues so far Do [...] know about the r (more content not included)...[facility]01-21-2025 NotePre-Transplant Evaluation Nephrology Consult Chief Complaint Patient presents with Kidney Eval Pancreas Eval PCP: Eusebio Olivares, DO Txp Referring: Nancy Haas Preferred Pharmacy: [facility]/pharmacy #[id number] - [facility] [place] - [address] [facility] [address] [facility] [address] Organ: Kidney/Pancreas Subjective Visit Vitals BP (!) [...] Review Audit Reviewed by Lesa Hurt MA (Associate Sales) on 09/08/24 at 0907 Medication Order Taking? Sig Documenting Provider Last Dose Status Accu-Chek Guide Me Glucose Mtr misc [id number] Yes See administration instructions. Historical Provider, Taking Active Accu-Chek Guide test strips strip [id number] Yes USE TO TEST FOUR TIMES A DAY DIRECTED Historical Provider, Taking Active Accu-Chek Softclix Lancets misc [id number] Yes USE TO TEST BLOOD SUGAR TWICE DAILY Historical ProviderMD Taking Active albuterol 90 mcg/actuation inhaler [id number] Yes 2 puffs. Historical Provider, Taking Active aluminum sulfate-calcium acetate ([place]) 952-1,347 mg packet [id number] Yes 1,334 mg. Historical Provider, Taking Active amLODIPine (Norvasc) 5 mg tablet [id number] Yes Take 1 tablet (5 mg) by mouth in the morning. Patient taking differently: Take 10 mg by mouth in the morning. Stephen Asencio MD Taking Differently Active aspirin 81 mg chewable tablet [id number] Yes 81 mg in the morning. Lexis Ralph MD Taking Active atorvastatin (Lipitor) 80 mg tablet [id number] Yes 80 mg in the morning. Lexis Ralph MD Taking Active azithromycin (Zithromax) 250 mg tablet [id number] No TAKE 1 TABLET ORALLY EVERY 24 HOURS FOR 3 DAYS START 08/30/24 Lexis Ralph MD Not Taking Active calcium acetate (Phoslo) 667 mg capsule [id number] Yes Take 1,334 mg by mouth. Lexis Ralph MD Taking Active carvedilol (Coreg) 25 mg tablet [id number] Yes Take 25 mg by mouth with breakfast and with evening meal. Lexis Ralph MD Taking Active cephalexin (Keflex) 500 mg capsule [id number] No Take 1 capsule by mouth Twice daily at 6am and 6pm. Lexis Ralph MD Not Taking Active clopidogrel (Plavix) 75 mg tablet [id number] Yes Take 75 mg by mouth in the morning. Lexis Ralph MD Taking Active Dexcom G6 Sensor device [id number] Yes CHANGE SENSOR EVERY 10 DAYS. ICD 10 E10.65 Lexis Ralph MD Taking Active Dexcom G6 Transmitter device [id number] Yes CHANGE EVERY 90 DAYS DX E10.65 Lexis Ralph MD Taking Active diclofenac (Voltaren) 1 % topical gel [id number] Yes Apply 2 g topically 3 times a day. Lexis Ralph MD Taking Active famotidine (Pepcid) 20 mg tablet [id number] Yes 20 mg in the morning. Lexis Ralph MD Taking Active ferric gluconate (Ferrlecit) 62.5 mg/5 mL injection [id number] Yes Infuse 62.5 mg into a venous catheter. Lexis Ralph MD Taking Active furosemide (Lasix) 40 mg tablet [id number] Yes Take 80 mg by mouth two times daily. Lexis Ralph MD Taking Active heparin sodium,porcine/PF (heparin, porcine, PF,) 1,000 unit/mL solution [id number] Yes Infuse 1,000 Units into a venous catheter. Lexis Ralph MD Taking Active hydrALAZINE (Apresoline) 100 mg tablet [id number] Yes Take 100 mg by mouth two times daily. Lexis Ralph MD Taking Active hydrOXYzine HCL (Atarax) 25 mg tablet [id number] Yes Take 25 mg by mouth in the morning. Historical Provider, Taking Active hyoscyamine (Anaspaz,Levsin) 0.125 mg tablet [id number] Yes TAKE 1 TABLET BY MOUTH EVERY 6 HOURS NEEDED FOR ABDOMINAL PAIN Historical ProviderMD Taking Active insulin glargine (Lantus) 100 unit/mL (3 mL) injection pen [id number] Yes Inject 20 Units under the skin in the morning. Historical ProviderMD Taking Active insulin lispro (HumaLOG) 100 unit/mL injection pen [id number] Yes Inject 4 times a day before meals & bedtime. CT500-240=1ibdma; 170-189=3units; 190-209=4units; 210-229=6units; 230-249=8units; 250-269=9units; 270-289=10units; 290-300=12units; >300=14units & notify provider Historical ProviderMD Taking Active isosorbide mononitrate ER (Imdur) 60 mg 24 hr tablet [id number] Yes Take 60 mg by mouth two times daily. Historical Provider, Taking Active lisinopril 20 mg tablet [id number] Yes 20 mg in the morning. Historical Provider, Taking Active loratadine (Claritin) 10 mg tablet [id number] Yes Take 10 mg by mouth every other day. Historical Provider, Taking Active nitroglycerin (Nitrostat) 0.4 mg SL tablet [id number] Yes 0.4 mg. Historical Provider, Taking Active omeprazole (PriLOSEC) 40 (more content not included)...[facility]01-21-2025 NoteTransplant Nutrition Assessment Name: Yoel Tamayo : 1985 Assessment date: 09/08/2024 PMH: ischemic cardiomyopathy, DM, anasarca, anemia, ESRD, VA, HLD, HTN. Dialysis HX: on HD Height: [...] own cooking. Diabetes Management: Now has a Endoclear 3 CGM. On lantus 20units and humalog SS. Reports having lots of highs and lows, PCP manages his DM, he does not have an supervisor coke handling. A1C 8.1% 07/14/24 (he thinks this is [...] A1C 8.1%. Does not follow with an supervisor coke handling. -Patient has questionable compliance issues. -RD discussed the importance of good blood sugar control and he needs to follow a diabetic diet. Discussed eating three meals daily, including more protein sources, fruits and vegetables. Patient was not interested in diet education. -Recommend A1C <8%, consider referral to an supervisor coke handling. -Consider referral to a GI doctor due to chronic constipation and frequent vomiting to rule out gastroparesis. Mary Sullivan RDACMC Healthcare [facility]01-14-2025 NoteDate of Telehealth Visit: 09/01/2024 Pre transplant evaluation HPI The visit was conducted [id number] with the use of audio and video technology using HIPAA approved [employer] System between patient and the provider for [...] in this note for specific details. Mr. 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 [...] No hx of known TB exposure, or assisted time No volunteering at shelters, no gardening [...] in lakes, public pools, (more content not included)...[facility]01-11-2025 Progress note Author Angel Cook [facility] Date/TimeJanuary 2024 11:29am [place] [address] Nephrology Progress Note Signed Patient: Yoel Tamayo MR#: [id number] : 1985 Acct:[id number] Age/Sex: 39 / M Adm Date: 5 Loc: Room: 1S4761-8 Type: ADM IN Attending Dr: Law Cano [...] [facility]WF [...] Skin: No rashes , warm to touch 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,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, following simple command Musculoskeletal: No swelling [...] 3 Ml Ampul.Neb) 3 ml INHALATION QID.RESP [facility] Stop: 08/28/25 07:59 Last Admin: 08/29/24 08:29 Dose: 3 ml Amlodipine Besylate (Amlodipine 2.5 Mg Tablet) 2.5 mg PO DAILY [facility] Stop: 08/28/25 08:59 Last Admin: 08/29/24 09:32 Dose: Not Given Aspirin (Aspirin 81 Mg Tab.Chew) 81 mg PO QAM [facility] Stop: 08/28/25 08:59 Last Admin: 08/29/24 09:32 Dose: Not Given Atorvastatin Calcium (Atorvastatin 80 Mg Tablet) 80 mg PO QPM [facility] Stop: 08/28/25 20:59 Last Admin: 08/28/24 21:10 Dose: 80 mg Azithromycin (Azithromycin 250 Mg Tablet) 250 mg PO Q24H [facility] Last Admin: 08/28/24 22:53 Dose: 250 mg Calcium Acetate (Calcium Acetate 667 Mg Capsule) 1,334 mg PO TID.WITH.MEALS [facility] Stop: 08/28/25 11:59 Last Admin: 08/29/24 07:45 Dose: 1,334 mg Carvedilol (Carvedilol 25 Mg Tablet) 25 mg PO BID.WITH.MEALS [facility] Stop: 08/28/25 07:59 Last Admin: 08/29/24 07:45 Dose: 25 mg Ceftriaxone Sodium (Ceftriaxone 1 Gm/10 Ml Syringe) 1 gm IV-PUSH DAILY@0100 [facility] Last Admin: 08/29/24 01:18 Dose: 1 gm Dextrose (Dextrose 50% In Water 25 Gm/50 Ml Syringe) 0 gm IV-PUSH PRN PRN PRN Reason: Hypoglycemia Stop: 08/28/25 03:22 Last Admin: 08/29/24 11:18 Dose: 25 gm Epoetin Alexus (Epoetin Alexus (Esrd Use) 20,000 Unit/Ml Vial) 10,000 unit IV-PUSH MoWeFr@0900 [facility]; Protocol Stop: 08/28/25 08:59 Last Admin: 08/28/24 10:44 Dose: 10,000 unit Furosemide (Furosemide 80 Mg Tablet) 80 mg PO BID@0800,1600 [facility] Stop: 08/28/25 07:59 Last Admin: 08/29/24 07:44 [...] 50 Mg Tablet) 100 mg PO BID [facility] Stop: 08/28/25 08:59 Last Admin: 08/29/24 09:32 Dose: Not Given Sodium Chloride (0.9% Sodium Chloride 1,000 Ml) 1,000 mls @ 0 mls/hr MISCELLANE.Q0M PRN PRN Reason: Dialysis Stop: 08/28/25 08:48 Last Infusion: 08/29/24 10:54 Dose: Infused Insulin Aspart (Insulin Aspart 300 Units/3 Ml) 0 units SUBCUT TID.[facility]; Protocol Stop: 08/28/25 07:59 Last Admin: 08/29/24 07:45 Dose: 12 units Insulin Glargine (Insulin Glargine 300 Units/3 Ml Insuln.Pen) 20 units SUBCUT [facility] Stop: 08/28/25 08:59 Isosorbide Mononitrate (Isosorbide Mononitrate 24hr Er 60 Mg Tab.Er.24h) 60 mg PO BID [facility] Stop: 08/28/25 08:59 Last Admin: 08/29/24 10:06 Dose: Not Given Lisinopril (Lisinopril 20 Mg Tablet) 20 mg PO DAILY [facility] Stop: 08/28/25 08:59 Last Admin: 08/29/24 10:06 Dose: Not Given Nitroglycerin (Nitroglycerin 0.4 Mg Tab.Subl) 0.4 mg SUBLINGUAL Q5MIN.X3 PRN PRN Reason: Chest Pain Stop: 08/28/25 04:53 Pantoprazole Sodium (Pantoprazole 40 Mg Tablet.Dr) 40 mg PO BID [facility] Stop: 08/28/25 08:59 Last Admin: 08/29/24 10:06 [...] physician into a diagnostic report(s) for Yoel Tamayo. I have reviewed the report(s) and am incorporating any findings in the treatment plan of this patient where applicable. 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 Currently goes to the [facility] 3 times a week on MWF [...] monitor for output * Documented By: Angel Cook MD 08/29/24 1128 Signed By: <Electronically signed by Angel Cook MD> 08/29/24 1129 [facility] Work Phone: 1(700) 813-828401-11-2025 [place] [address] Nephrology Progress Note Signed Patient: Yoel Tamayo MR#: [id number] : 1985 Acct:[id number] Age/Sex: 39 / M Adm Date: 5 Loc: Room: [address] [place] [address] Type: ADM IN Attending Dr: Law Cano [...] hypertensive nephrosclerosis. [facility] [...] Skin: No rashes , warm to touch 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,Alert, following simple command Musculoskeletal: No swelling [...] 3 Ml Ampul.Neb) 3 ml INHALATION QID.RESP [facility] Stop: 08/28/25 07:59 Last Admin: 08/29/24 08:29 Dose: 3 ml Amlodipine Besylate (Amlodipine 2.5 Mg Tablet) 2.5 mg PO DAILY [facility] Stop: 08/28/25 08:59 Last Admin: 08/29/24 09:32 Dose: Not Given Aspirin (Aspirin 81 Mg Tab.Chew) 81 mg PO QAM [facility] Stop: 08/28/25 08:59 Last Admin: 08/29/24 09:32 Dose: Not Given Atorvastatin Calcium (Atorvastatin 80 Mg Tablet) 80 mg PO QPM [facility] Stop: 08/28/25 20:59 Last Admin: 08/28/24 21:10 Dose: 80 mg Azithromycin (Azithromycin 250 Mg Tablet) 250 mg PO Q24H [facility] Last Admin: 08/28/24 22:53 Dose: 250 mg Calcium Acetate (Calcium Acetate 667 Mg Capsule) 1,334 mg PO TID.WITH.MEALS [facility] Stop: 08/28/25 11:59 Last Admin: 08/29/24 07:45 Dose: 1,334 mg Carvedilol (Carvedilol 25 Mg Tablet) 25 mg PO BID.WITH.MEALS [facility] Stop: 08/28/25 07:59 Last Admin: 08/29/24 07:45 Dose: 25 mg Ceftriaxone Sodium (Ceftriaxone 1 Gm/10 Ml Syringe) 1 gm IV-PUSH DAILY@0100 [facility] Last Admin: 08/29/24 01:18 Dose: 1 gm Dextrose (Dextrose 50% In Water 25 Gm/50 Ml Syringe) 0 gm IV-PUSH PRN PRN PRN Reason: Hypoglycemia Stop: 08/28/25 03:22 Last Admin: 08/29/24 11:18 Dose: 25 gm Epoetin Alexus (Epoetin Alexus (Esrd Use) 20,000 Unit/Ml Vial) 10,000 unit IV-PUSH MoWeFr@0900 [facility]; Protocol Stop: 08/28/25 08:59 Last Admin: 08/28/24 10:44 Dose: 10,000 unit Furosemide (Furosemide 80 Mg Tablet) 80 mg PO BID@0800,1600 [facility] Stop: 08/28/25 07:59 Last Admin: 08/29/24 07:44 [...] 50 Mg Tablet) 100 mg PO BID [facility] Stop: 08/28/25 08:59 Last Admin: 08/29/24 09:32 Dose: Not Given Sodium Chloride (0.9% Sodium Chloride 1,000 Ml) 1,000 mls @ 0 mls/hr MISCELLANE.Q0M PRN PRN Reason: Dialysis Stop: 08/28/25 08:48 Last Infusion: 08/29/24 10:54 Dose: Infused Insulin Aspart (Insulin Aspart 300 Units/3 Ml) 0 units SUBCUT TID.[facility]; Protocol Stop: 08/28/25 07:59 Last Admin: 08/29/24 07:45 Dose: 12 units Insulin Glargine (Insulin Glargine 300 Units/3 Ml Insuln.Pen) 20 units SUBCUT [facility] Stop: 08/28/25 08:59 Isosorbide Mononitrate (Isosorbide Mononitrate 24hr Er 60 Mg Tab.Er.24h) 60 mg PO BID [facility] Stop: 08/28/25 08:59 Last Admin: 08/29/24 10:06 Dose: Not Given Lisinopril (Lisinopril 20 Mg Tablet) 20 mg PO DAILY [facility] Stop: 08/28/25 08:59 Last Admin: 08/29/24 10:06 Dose: Not Given Nitroglycerin (Nitroglycerin 0.4 Mg Tab.Subl) 0.4 mg SUBLINGUAL Q5MIN.X3 PRN PRN Reason: Chest Pain Stop: 08/28/25 04:53 Pantoprazole Sodium (Pantoprazole 40 Mg Tablet.Dr) 40 mg PO BID [facility] Stop: 08/28/25 08:59 Last Admin: 08/29/24 10:06 Dose: Not Given Paricalcitol (Paricalcitol 10 Mcg/2 Ml Vial) 5 mcg IV-PUSH MoWeFr@0900 [facility] Stop: 08/28/25 08:59 Last Admin: 08/28/24 10:43 Dose: 5 mcg Saccharomyces Boulardii (Saccharomyces Boulardii 250 Mg Capsule) 250 mg PO BID.WITH.MEALS [facility] Stop: 08/28/25 07:59 Last Admin: 08/29/24 07:44 [...] physician into a diagnostic report(s) for Yoel Tamayo. I have reviewed the report(s) and am incorporating any findings in the treatment plan of this patient where applicable. 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 Currently goes to the [facility] 3 times a week on MWF [...] monitor for output * Documented By: Angel Cook MD 08/29/24 1128 Signed By: 08/29/24 1129 [facility]01-11-2025 Progress note Author Law Cano [facility] Date/TimeJanuary 2024 1:23am [place] [id number] Hospitalist Progress Note Signed Patient: Yoel Tamayo MR#: [id number] : 1985 Acct:[id number] Age/Sex: 39 / M Adm Date: Loc: Room: [address] [place] [address] Type: ADM IN Attending Dr: Law Cano [...] complication, recommendation appreciated. Elevated Troponin Type II VA Troponin was found incidentally to be mildly [...] Vial IV-PUSH 08/28/25 08:59 10,000 unit MoWeFr@0900 [facility] Administration Protocol Furosemide 80 mg 08/28/24 08:00 08/28/24 16:17 Furosemide 80 Mg Tablet PO 08/28/25 07:59 80 mg BID@0800,1600 [facility] Administration Glucose 0 gm 08/28/24 03:23 Dextrose [...] Tablet PO 08/28/25 08:59 Not Given BID [facility] Sodium Chloride 1,000 mls @ 0 mls/hr 08/28/24 08:49 08/28/24 10:45 0.9% Sodium Chloride 1,000 Ml MISCELLANE 08/28/25 08:48 Infused .Q0M PRN Infusion Dialysis As Directed Insulin Aspart 0 units 08/28/24 08:00 08/28/24 16:41 Insulin Aspart 300 Units/3 Ml SUBCUT 08/28/25 07:59 Not Given TID.WM.HS [facility] Protocol Insulin Glargine 20 units 08/28/24 09:00 [...] Plan Documented By: Law Cano MD 08/28/24 4707 Signed By: <Electronically signed by Law Cano MD> 08/29/24 0123 [facility] Work Phone: 1(902) [phone] [place] [address] Hospitalist Progress Note Signed Patient: Yoel Tamayo MR#: [id number] : 1985 Acct:[id number] Age/Sex: 39 / M Adm Date: 5 Loc: Room: [address] [place] [address] Type: ADM IN Attending Dr: Law Cano [...] complication, recommendation appreciated. Elevated Troponin Type II VA Troponin was found incidentally to be mildly [...] 80 Mg Tablet PO 08/28/25 20:59 QPM [facility] Azithromycin 250 mg 08/28/24 23:00 Azithromycin 250 Mg Tablet PO Q24H [facility] Calcium Acetate 1,334 mg 08/28/24 12:00 08/28/24 16:17 Calcium Acetate 667 Mg Capsule PO 08/28/25 11:59 1,334 mg TID.WITH.MEALS [facility] Administration Carvedilol 25 mg 08/28/24 08:00 08/28/24 16:17 Carvedilol 25 Mg Tablet PO 08/28/25 07:59 25 mg BID.WITH.MEALS [facility] Administration Ceftriaxone Sodium 1 gm 08/29/24 01:00 Ceftriaxone 1 Gm/10 Ml Syringe IV-PUSH DAILY@0100 [facility] Dextrose 0 gm 08/28/24 03:23 Dextrose 50% In Water 25 Gm/50 Ml Syringe IV-PUSH 08/28/25 03:22 PRN PRN Hypoglycemia Epoetin Alexus 10,000 unit 08/28/24 09:00 08/28/24 10:44 Epoetin Alexus (Esrd Use) 20,000 Unit/Ml Vial IV-PUSH 08/28/25 08:59 10,000 unit MoWeFr@0900 [facility] Administration Protocol Furosemide 80 mg 08/28/24 08:00 08/28/24 16:17 Furosemide 80 Mg Tablet PO 08/28/25 07:59 80 mg BID@0800,1600 [facility] Administration Glucose 0 gm 08/28/24 03:23 Dextrose [...] Tablet PO 08/28/25 08:59 Not Given BID [facility] Sodium Chloride 1,000 mls @ 0 mls/hr 08/28/24 08:49 08/28/24 10:45 0.9% Sodium Chloride 1,000 Ml MISCELLANE 08/28/25 08:48 Infused .Q0M PRN Infusion Dialysis As Directed Insulin Aspart 0 units 08/28/24 08:00 08/28/24 16:41 Insulin Aspart 300 Units/3 Ml SUBCUT 08/28/25 07:59 Not Given TID.WM.HS [facility] Protocol Insulin Glargine 20 units 08/28/24 09:00 [...] Cano MD 08/28/24 171 Signed By: 08/29/24 0123 [facility]01-10-2025 Consult note Author Angel Cook [facility] Date/TimeJanuary 2024 12:33pm [place] [address] Nephrology Consult Note Signed Patient: Yoel Tamayo MR#: [id number] : 1985 Acct:[id number] Age/Sex: 39 / M Adm Date: 5 Loc: Room: [address] [place] [address] Type: ADM IN Attending Dr: Law Cano [...] [facility] [...] polydipsia Dermatological: denies any itching or rash REPLACED BY [facility] Medical History Wellness examination Hypertensive CKD, ESRD [...] Confirmed 08/28/24] 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 meter,continuous (FreeStyle Ramy 3 [place]) #1 ea 03/02/24 [Rx Confirmed 08/28/24] 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 meter,continuous (FreeStyle Ramy 3 [place]) #1 ea 03/19/24 [Rx Confirmed 08/28/24] omeprazole [...] 3 Ml Ampul.Neb) 3 ml INHALATION QID.RESP [facility] Stop: 08/28/25 07:59 Last Admin: 08/28/24 09:19 Dose: 3 ml Amlodipine Besylate (Amlodipine 2.5 Mg Tablet) 2.5 mg PO DAILY [facility] Stop: 08/28/25 08:59 Last Admin: 08/28/24 08:57 Dose: Not Given Aspirin (Aspirin 81 Mg Tab.Chew) 81 mg PO QAM [facility] Stop: 08/28/25 08:59 Last Admin: 08/28/24 08:57 Dose: Not Given Atorvastatin Calcium (Atorvastatin 80 Mg Tablet) 80 mg PO QPM [facility] Stop: 08/28/25 20:59 Azithromycin (Azithromycin 250 Mg Tablet) 250 mg PO Q24H [facility] Calcium Acetate (Calcium Acetate 667 Mg Capsule) 1,334 mg PO TID.WITH.MEALS [facility] Stop: 08/28/25 11:59 Carvedilol (Carvedilol 25 Mg Tablet) 25 mg PO BID.WITH.MEALS [facility] Stop: 08/28/25 07:59 Last Admin: 08/28/24 07:50 Dose: 25 mg Ceftriaxone Sodium (Ceftriaxone 1 Gm/10 Ml Syringe) 1 gm IV-PUSH DAILY@0100 [facility] Dextrose (Dextrose 50% In Water 25 Gm/50 Ml Syringe) 0 gm IV-PUSH PRN PRN PRN Reason: Hypoglycemia Stop: 08/28/25 03:22 Epoetin Alexus (Epoetin Alexus (Esrd Use) 20,000 Unit/Ml Vial) 10,000 unit IV-PUSH MoWeFr@0900 [facility]; Protocol Stop: 08/28/25 08:59 Last Admin: 08/28/24 10:44 Dose: 10,000 unit Furosemide (Furosemide 80 Mg Tablet) 80 mg PO BID@0800,1600 [facility] Stop: 08/28/25 07:59 Last Admin: 08/28/24 07:51 [...] 50 Mg Tablet) 100 mg PO BID [facility] Stop: 08/28/25 08:59 Last Admin: 08/28/24 08:57 Dose: Not Given Sodium Chloride (0.9% Sodium Chloride 1,000 Ml) 1,000 mls @ 0 mls/hr MISCELLANE.Q0M PRN PRN Reason: Dialysis Stop: 08/28/25 08:48 Last Infusion: 08/28/24 10:45 Dose: Infused Insulin Aspart (Insulin Aspart 300 Units/3 Ml) 0 units SUBCUT TID.WM.HS [facility]; Protocol Stop: 08/28/25 07:59 Last Admin: 08/28/24 07:53 Dose: 4 units Insulin Glargine (Insulin Glargine 300 Units/3 Ml Insuln.Pen) 20 units SUBCUT DAILY [facility] Stop: 08/28/25 08:59 Last Admin: 08/28/24 08:46 Dose: 20 units Isosorbide Mononitrate (Isosorbide Mononitrate 24hr Er 60 Mg Tab.Er.24h) 60 mg PO BID [facility] Stop: 08/28/25 08:59 Last Admin: 08/28/24 08:46 Dose: 60 mg Lisinopril (Lisinopril 20 Mg Tablet) 20 mg PO DAILY [facility] Stop: 08/28/25 08:59 Last Admin: 08/28/24 08:58 Dose: Not Given Nitroglycerin (Nitroglycerin 0.4 Mg Tab.Subl) 0.4 mg SUBLINGUAL Q5MIN.X3 PRN PRN Reason: Chest Pain Stop: 08/28/25 04:53 Pantoprazole Sodium (Pantoprazole 40 Mg Tablet.Dr) 40 mg PO BID [facility] Stop: 08/28/25 08:59 Last Admin: 08/28/24 08:46 Dose: 40 mg Paricalcitol (Paricalcitol 10 Mcg/2 Ml Vial) 5 mcg IV-PUSH MoWeFr@0900 [facility] Stop: 08/28/25 08:59 Last Admin: 08/28/24 10:43 Dose: 5 mcg Saccharomyces Boulardii (Saccharomyces Boulardii 250 Mg Capsule) 250 mg PO BID.WITH.MEALS [facility] Stop: 08/28/25 07:59 Last Admin: 08/28/24 07:50 Dose: 250 mg Sertraline HCl (Sertraline 100 Mg Tablet) 100 mg PO DAILY [facility] Stop: 08/28/25 08:59 Last Admin: 08/28/24 08:58 [...] Skin: No rashes , warm to touch 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 I have reviewed the report(s) and am incorporating any findings in the treatment plan of this patient where applicable. 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 Currently goes to the [facility] 3 times a week on MWF [...] us with any question Documented By: Angel Cook MD 08/28/24 1111 Signed By: <Electronically signed by Angel Cook MD> 08/28/24 [facility] Work Phone: 1([phone]) 107-206701-10-2025 [place] [address] Nephrology Consult Note Signed Patient: Yoel Tamayo MR#: [id number] : 1985 Acct:[id number] Age/Sex: 39 / M Adm Date: 5 Loc: Room: [address] [place] [address] Type: ADM IN Attending Dr: Law Cano [...] [facility]WF [...] polydipsia Dermatological: denies any itching or rash REPLACED BY [facility] Medical History Wellness examination Hypertensive CKD, ESRD [...] Confirmed 08/28/24] 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 meter,continuous (FreeStyle Ramy 3 [place]) #1 ea 03/02/24 [Rx Confirmed 08/28/24] 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 meter,continuous (FreeStyle Ramy 3 [place]) #1 ea 03/19/24 [Rx Confirmed 08/28/24] omeprazole [...] 81 Mg Tab.Chew) 81 mg PO QAM [facility] Stop: 08/28/25 08:59 Last Admin: 08/28/24 08:57 Dose: Not Given Atorvastatin Calcium (Atorvastatin 80 Mg Tablet) 80 mg PO QPM [facility] Stop: 08/28/25 20:59 Azithromycin (Azithromycin 250 Mg Tablet) 250 mg PO Q24H [facility] Calcium Acetate (Calcium Acetate 667 Mg Capsule) 1,334 mg PO TID.WITH.MEALS [facility] Stop: 08/28/25 11:59 Carvedilol (Carvedilol 25 Mg Tablet) 25 mg PO BID.WITH.MEALS [facility] Stop: 08/28/25 07:59 Last Admin: 08/28/24 07:50 Dose: 25 mg Ceftriaxone Sodium (Ceftriaxone 1 Gm/10 Ml Syringe) 1 gm IV-PUSH DAILY@0100 [facility] Dextrose (Dextrose 50% In Water 25 Gm/50 Ml Syringe) 0 gm IV-PUSH PRN PRN PRN Reason: Hypoglycemia Stop: 08/28/25 03:22 Epoetin Alexus (Epoetin Alexus (Esrd Use) 20,000 Unit/Ml Vial) 10,000 unit IV-PUSH MoWeFr@0900 [facility]; Protocol Stop: 08/28/25 08:59 Last Admin: 08/28/24 10:44 Dose: 10,000 unit Furosemide (Furosemide 80 Mg Tablet) 80 mg PO BID@0800,1600 [facility] Stop: 08/28/25 07:59 Last Admin: 08/28/24 07:51 [...] 50 Mg Tablet) 100 mg PO BID [facility] Stop: 08/28/25 08:59 Last Admin: 08/28/24 08:57 Dose: Not Given Sodium Chloride (0.9% Sodium Chloride 1,000 Ml) 1,000 mls @ 0 mls/hr MISCELLANE.Q0M PRN PRN Reason: Dialysis Stop: 08/28/25 08:48 Last Infusion: 08/28/24 10:45 Dose: Infused Insulin Aspart (Insulin Aspart 300 Units/3 Ml) 0 units SUBCUT TID.WM.HS [facility]; Protocol Stop: 08/28/25 07:59 Last Admin: 08/28/24 07:53 Dose: 4 units Insulin Glargine (Insulin Glargine 300 Units/3 Ml Insuln.Pen) 20 units SUBCUT DAILY [facility] Stop: 08/28/25 08:59 Last Admin: 08/28/24 08:46 [...] 40 Mg Tablet.Dr) 40 mg PO BID [facility] Stop: 08/28/25 08:59 Last Admin: 08/28/24 08:46 Dose: 40 mg Paricalcitol (Paricalcitol 10 Mcg/2 Ml Vial) 5 mcg IV-PUSH MoWeFr@0900 [facility] Stop: 08/28/25 08:59 Last Admin: 08/28/24 10:43 Dose: 5 mcg Saccharomyces Boulardii (Saccharomyces Boulardii 250 Mg Capsule) 250 mg PO BID.WITH.MEALS [facility] Stop: 08/28/25 07:59 Last Admin: 08/28/24 07:50 Dose: 250 mg Sertraline HCl (Sertraline 100 Mg Tablet) 100 mg PO DAILY [facility] Stop: 08/28/25 08:59 Last Admin: 08/28/24 08:58 [...] Skin: No rashes , warm to touch 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 I have reviewed the report(s) and am incorporating any findings in the treatment plan of this patient where applicable. 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 Currently goes to the [facility] 3 times a week on MWF [...] us with any question Documented By: Angel Cook MD 08/28/24 1111 Signed By: 08/28/24 [facility]01-10-2025 History and physical note Author Brigid Salvador [facility] Date/TimeJanuary 2024 4:58am [place] [address] Hospitalist H&P Signed Patient: Yoel Tamayo MR#: [id number] : 1985 Acct:[id number] Age/Sex: 39 / M Adm Date: 5 Loc: Room: 3D2378-0 Type: ADM IN Attending Dr: Dwayne Little DO Copies to: Eusebio Olivares,DO Dwayne Little, DO Brigid Salvador, GUT SNATCHER~ HPI DATE OF EXAMINATION: 08/28/24 CHIEF COMPLAINT: coughing up blood HISTORY OF PRESENT ILLNESS: Mr. Tamayo is a 39-year-old male with a PMH of ESRD on HD?M/W/F, AV fistula to the left arm, VA,5 cardiac stents, combined systolic and diastolic heart [...] twice a day. States he follows with [facility] to provide for pancreas and [...] will be admitted as inpatient to the [facility] telemetry floor. Review of Systems Review of Systems Review of systems: A 10 point review of systems was obtained, negative unless noted in the HPI or below. REPLACED BY [facility] Medical History Wellness examination Hypertensive CKD, ESRD [...] of unknown significance) History of blood transfusion 2021 Diabetic retinopathy History of myocardial infarction 2021 [...] Confirmed 06/22/24] 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 meter,continuous (FreeStyle Ramy 3 [place]) #1 ea 03/02/24 [Rx Confirmed 06/22/24] 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 meter,continuous (FreeStyle Ramy 3 [place]) #1 ea 03/19/24 [Rx Confirmed 06/22/24] albuterol [...] 08/27/24 23:42 MCH 29.1 pg (27.5-35.2) 08/27/24 23: MCHC 34.2 g/dL (32.5-35.6) 08/27/24 23:42 RDW 14.0 % (12.0-14.8) 08/27/24 23:42 Plt Count 151 x10E3/uL (150-450) 08/27/24 23:42 MPV 7.9 fl (6.6-10.1) 08/27/24 23:42 Neut % (Auto) 70.0 % (.) 08/27/24 23: Lymph % (Auto) 18.3 % (.) 08/27/24 23:42 [place] % (Auto) 7.4 % (.) 08/27/24 23: Eos % (Auto) 3.1 % (.) 08/27/24: Baso % (Auto) 1.2 % (.) 08/27/24 23:42 Nucleat RBC Rel Count 0.0 /100 WBC (0-0.5) 08/27/24 23: Neut # (Auto) 4.5 x10E3/uL (1.8-7.7) 08/27/24 23:42 Lymph # (Auto) 1.2 x10E3/uL (1.00-4.8) 08/27/24 23:42 [place] # (Auto) 0.5 x10E3/uL (0.0-0.8) 08/27/24 23:42 Eos # (Auto) 0.2 x10E3/uL (0.0-0.45) 08/27/24 23: Baso # (Auto) 0.1 x10E3/uL (0.0-0.2) 08/27/24 23: Monocyte Dist Width 18.41 % (0.00-20.00) 08/27/24 [...] (# of days): 3 Documented By: Brigid Salvador APRN 08/28/24 0253 Signed By: <Electronically signed by JOSH Salvador> 08/28/24 0331 <Electronically signed by Dwayne Little DO> 08/28/24 0458 [facility] Work Phone: 1(505) 598-824601-10-2025 [place] [address] Hospitalist H&P Signed Patient: Yoel Tamayo MR#: [id number] : 1985 Acct:[id number] Age/Sex: 39 / M Adm Date: 5 Loc: Room: [address] [place] [address] Type: ADM IN Attending Dr: Dwayne Little DO Copies to: Eusebio Olivares,DO Dwayne Little, DO Brigid Salvador APRN~ HPI DATE OF EXAMINATION: 08/28/24 CHIEF COMPLAINT: coughing up blood HISTORY OF PRESENT ILLNESS: Mr. Tamayo is a 39-year-old male with a PMH of ESRD on HD?M/W/F, AV fistula to the left arm, VA,5 cardiac stents, combined systolic and diastolic heart [...] twice a day. States he follows with [facility] to provide for pancreas and [...] will be admitted as inpatient to the [facility] telemetry floor. Review of Systems Review of Systems Review of systems: A 10 point review of systems was obtained, negative unless noted in the HPI or below. REPLACED BY [facility] Medical History Wellness examination Hypertensive CKD, ESRD [...] Confirmed 06/22/24] 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 meter,continuous (FreeStyle Ramy 3 [place]) #1 ea 03/02/24 [Rx Confirmed 06/22/24] 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 meter,continuous (FreeStyle Ramy 3 [place]) #1 ea 03/19/24 [Rx Confirmed 06/22/24] albuterol [...] % (Auto) 18.3 % (.) 08/27/24 23:42 [place] % (Auto) 7.4 % (.) 08/27/24 23:42 Eos % (Auto) 3.1 % (.) 08/27/24 23:42 Baso % (Auto) 1.2 % (.) 08/27/24 23:42 Nucleat RBC Rel Count 0.0 /100 WBC (0-0.5) 08/27/24 23:42 Neut # (Auto) 4.5 x10E3/uL (1.8-7.7) 08/27/24 23:42 Lymph # (Auto) 1.2 x10E3/uL (1.00-4.8) 08/27/24 23:42 [place] # (Auto) 0.5 x10E3/uL (0.0-0.8) 08/27/24 23:42 [...] (# of days): 3 Documented By: Brigid Salvador, GUT SNATCHER 08/28/24 0253 Signed By: 08/28/24 0331 08/28/24 0458 [facility]01-10[facility]25 Evaluation note* Diagnosis Onset Date Resolution Status Admit Date Acute bacterial bronchitis resolvedJanuary 2024 1:27amAnemia of renal diseaseresolvedJanuary 2024 1:27amCough with hemoptysisresolvedAuguary 2024 1:27amESRD on hemodialysisresolvedJanuary 2024 1:27amHypertensive CKD, ESRD on dialysis resolvedAuguary 2024 1:27amSecondary hyperparathyroidismresolvedAuguary 2024 1:27amCAP (community acquired pneumonia)deletedAuguary 2024 1:27amChronic combined systolic (congestive) and diastolic (congestive) heart failuredeletedAuguary 2024 1:27amHypertensiondeletedJanuary 2024 1:27amPulmonary edemadeletedJanuary 2024 1:27amType 1 diabetes mellitus deletedAuguary 2024 1:27amType 2 diabetes mellitus with diabetic chronic kidney diseasedeletedAuguary 2024 1:27amASHD (arteriosclerotic heart disease)acuteAuguary 2024 1:01pmInsomniaacuteJanuary 2024 1:01pm Primary hypertensionacuteJanuary 2024 1:01pmWellness examinationacute Alyx 2024 1:01pmESRD on hemodialysisresolvedJanuary 2024 1:01pm CAP (community acquired pneumonia)deletedAuguary 2024 1:01pmNicotine addictiondeletedJanuary 2024 1:01pmAnemia of renal diseaseresolvedJanuary 2024 1:09amCAP (community acquired pneumonia)resolvedAuguary 2024 1:09amConstipationresolvedJanuary 2024 1:09amCOVID-19resolvedJanuary 2024 1:09amESRD on hemodialysisresolvedJanuary 2024 1:09amHypertensive CKD, ESRD on dialysisresolvedJanuary 2024 1:09amSecondary hyperparathyroidismresolvedJanuary 2024 1:09amASHD (arteriosclerotic heart disease)acuteFebruary 2024 12:55pmPrimary hypertensionacuteFebruary 2024 12:55pm [facility] Work Phone: 1(447) 390-990201-10-2025 Evaluation note* Diagnosis Onset Date Resolution Status Admit Date Acute bacterial bronchitis resolvedJanuary 2024 1:27amAnemia of renal diseaseresolvedJanuary 2024 1:27amCough with hemoptysisresolvedAuguary 2024 1:27amESRD on hemodialysisresolvedJanuary 2024 1:27amHypertensive CKD, ESRD on dialysis resolvedAuguary 2024 1:27amSecondary hyperparathyroidismresolvedJanuary 2024 1:27amCAP (community acquired pneumonia)deletedAuguary 2024 1:27amChronic combined systolic (congestive) and diastolic (congestive) heart failuredeletedJanuary 2024 1:27amHypertensiondeletedJanuary 2024 1:27amPulmonary edemadeletedJanuary 2024 1:27amType 1 diabetes mellitus deletedJanuary 2024 1:27amType 2 diabetes mellitus with diabetic chronic kidney diseasedeletedAuguary 2024 1:27amASHD (arteriosclerotic heart disease)acuteJanuary 2024 1:01pmInsomniaacuteJanuary 2024 1:01pm Primary hypertensionacuteJanuary 2024 1:01pmWellness examinationacute Alyx 2024 1:01pmESRD on hemodialysisresolvedAuguary 2024 1:01pm CAP (community acquired pneumonia)deletedAuguary 2024 1:01pmNicotine addictiondeletedJanuary 2024 1:01pmAnemia of renal diseaseresolvedJanuary 2024 1:09amCAP (community acquired pneumonia)resolvedAuguary 2024 1:09amConstipationresolvedJanuary 2024 1:09amCOVID-19resolvedJanuary 2024 1:09amESRD on hemodialysisresolvedJanuary 2024 1:09amHypertensive CKD, ESRD on dialysisresolvedJanuary 2024 1:09amSecondary hyperparathyroidismresolvedJanuary 2024 1:09amASHD (arteriosclerotic heart disease)acuteFebruary 2024 12:55pmChronic bronchitis, mucopurulentacute February 2024 12:55pmChronic heart failure with preserved ejection fraction (HFpEF)acuteFebruary 2024 12:55pmContusion of right lower extremityacuteFebruary 2024 12:55pmPrimary hypertensionacuteFebruary 2024 12:55pmType 1 diabetes mellitus with hyperglycemiaacuteFebruary 2024 12:55pmESRD (end stage renal disease) on dialysisdeletedFebruary 2024 12:55pmNicotine addictiondeletedFebruary 2024 12:55pm [facility] Work Phone: 1(708) 727-339901-10-2025 Evaluation note* Diagnosis Onset Date Resolution Status Admit Date Acute bacterial bronchitis resolvedJanuary 2024 1:27amAnemia of renal diseaseresolvedAuguary 2024 1:27amCough with hemoptysisresolvedAuguary 2024 1:27amESRD on hemodialysisresolvedJanuary 2024 1:27amHypertensive CKD, ESRD on dialysis resolvedAuguary 2024 1:27amSecondary hyperparathyroidismresolvedJanuary 2024 1:27amCAP (community acquired pneumonia)deletedAuguary 2024 1:27amChronic combined systolic (congestive) and diastolic (congestive) heart failuredeletedAuguary 2024 1:27amHypertensiondeletedJanuary 2024 1:27amPulmonary edemadeletedJanuary 2024 1:27amType 1 diabetes mellitus deletedAuguary 2024 1:27amType 2 diabetes mellitus with diabetic chronic kidney diseasedeletedJanuary 2024 1:27amASHD (arteriosclerotic heart disease)acuteJanuary 2024 1:01pmInsomniaacuteJanuary 2024 1:01pm Primary hypertensionacuteJanuary 2024 1:01pmWellness examinationacute September 02, 2024 1:01pmESRD on hemodialysisresolvedJanuary 2024 1:01pm CAP (community acquired pneumonia)deletedJanuary 2024 1:01pmNicotine addictiondeletedJanuary 2024 1:01pmAnemia of renal diseaseresolvedJanuary 2024 1:09amCAP (community acquired pneumonia)resolvedAuguary 2024 1:09amConstipationresolvedJanuary 2024 1:09amCOVID-19resolvedJanuary 2024 1:09amESRD on hemodialysisresolvedJanuary 2024 1:09amHypertensive CKD, ESRD on dialysisresolvedAuguary 2024 1:09amSecondary hyperparathyroidismresolvedAuguary 2024 1:09amASHD (arteriosclerotic heart disease)acuteFebruary 2024 12:55pmChronic bronchitis, mucopurulentacute October 14, 2024 12:55pmChronic heart failure with preserved ejection fraction (HFpEF)acuteFebruary 2024 12:55pmContusion of right lower extremityacuteFebruary 2024 12:55pmPrimary hypertensionacuteFebruary 2024 12:55pmType 1 diabetes mellitus with hyperglycemiaacuteFebruary 2024 12:55pmESRD (end stage renal disease) on dialysisdeletedFebruary 2024 12:55pmNicotine addictiondeletedFebruary 2024 12:55pmAcute hyperkalemia acuteMarch 2024 10:56pmMissed dialysisacuteMarch 2024 10:56pmT wave inversion in EKGacuteMarch 2024 10:56pmUncontrolled hypertensionacuteMarch 2024 10:56pmUremiaacuteMarch 2024 10:56pm [facility] Work Phone: 1(264) 286-958401-10-2025 Evaluation note* Diagnosis Onset Date Resolution Status Admit Date Acute bacterial bronchitis resolvedAuguary 2024 1:27amAnemia of renal diseaseresolvedAuguary 2024 1:27amCough with hemoptysisresolvedJanuary 2024 1:27amESRD on hemodialysisresolvedJanuary 2024 1:27amHypertensive CKD, ESRD on dialysis resolvedAuguary 2024 1:27amSecondary hyperparathyroidismresolvedJanuary 2024 1:27amCAP (community acquired pneumonia)deletedAuguary 2024 1:27amChronic combined systolic (congestive) and diastolic (congestive) heart failuredeletedJanuary 2024 1:27amHypertensiondeletedJanuary 2024 1:27amPulmonary edemadeletedJanuary 2024 1:27amType 1 diabetes mellitus deletedAuguary 2024 1:27amType 2 diabetes mellitus with diabetic chronic kidney diseasedeletedAuguary 2024 1:27amASHD (arteriosclerotic heart disease)acuteJanuary 2024 1:01pmInsomniaacuteJanuary 2024 1:01pm Primary hypertensionacuteJanuary 2024 1:01pmWellness examinationacute September 02, 2024 1:01pmESRD on hemodialysisresolvedJanuary 2024 1:01pm CAP (community acquired pneumonia)deletedAuguary 2024 1:01pmNicotine addictiondeletedJanuary 2024 1:01pmAnemia of renal diseaseresolvedJanuary 2024 1:09amCAP (community acquired pneumonia)resolvedJanuary 2024 1:09amConstipationresolvedJanuary 2024 1:09amCOVID-19resolvedJanuary 2024 1:09amESRD on hemodialysisresolvedJanuary 2024 1:09amHypertensive CKD, ESRD on dialysisresolvedJanuary 2024 1:09amSecondary hyperparathyroidismresolvedJanuary 2024 1:09amASHD (arteriosclerotic heart disease)acuteFebruary 2024 12:55pmChronic bronchitis, mucopurulentacute October 14, 2024 12:55pmChronic heart failure with preserved ejection fraction (HFpEF)acuteFebruary 2024 12:55pmContusion of right lower extremityacuteFebruary 2024 12:55pmPrimary hypertensionacuteFebruary 2024 12:55pmType 1 diabetes mellitus with hyperglycemiaacuteFebruary 2024 12:55pmESRD (end stage renal disease) on dialysisdeletedFebruary 2024 12:55pmNicotine addictiondeletedFebruary 2024 12:55pmAcute hyperkalemia acuteMarch 2024 10:56pmESRD (end stage renal disease)acuteMarch 2024 10:56pmMissed dialysisacuteMarch 2024 10:56pmT wave inversion in EKGacute November 01, 2024 10:56pmUncontrolled hypertensionacuteMarch 2024 10:56pm UremiaacuteMarch 2024 10:56pmHypertensive CKD, ESRD on dialysisresolved November 01, 2024 10:56pmSecondary hyperparathyroidismresolvedMarch 2024 10:56pmAnemia in chronic kidney diseaseinactiveMarch 2024 10:56pmType 1 diabetes mellitus with hyperglycemiainactiveMarch 2024 10:56pmESRD (end stage renal disease) on dialysisdeletedMar 2024 10:56pm [facility] Work Phone: 1(107) 547-211612-30-2024 NotePatient was a No-Show for his 3pm echo. [facility]12-26-2024 NoteUT Cardiology - [facility] Corie Tamayo is a 39 y.o. year old male patient being seen for Cardiac evaluation for renal transplant (SL[employer] AMBASS[employer]OR evaluation w/ no testing) Patient Active Problem List Diagnosis Acute hypoxic respiratory failure (CMS/HCC) Acute metabolic encephalopathy Anasarca Anemia in chronic kidney disease Coronary artery disease involving [place] coronary artery of [place] heart without angina pectoris AV fistula stenosis (CMS/HCC) BMI 21.0-21.9, adult Chest pain CHF (congestive heart failure) (CMS/HCC) Chronic bronchitis, mucopurulent (CMS/HCC) Chronic venous insufficiency Cigarette nicotine dependence without complication Current every day smoker Diabetes mellitus (CMS/HCC) Encephalopathy Erectile dysfunction due to arterial insufficiency End stage renal disease (CMS/HCC) Hypertension, essential EBENEZER (generalized anxiety disorder) HCAP (healthcare-associated pneumonia) History of VA (myocardial infarction) Hyperkalemia Hyperlipidemia Hypertensive emergency Hypoxemia [...] Grandmother Coronary artery disease Paternal Grandfather ROBERTO Tamayo is seen as a new patient for cardiac evaluation for possible renal and pancreas transplant, referred by Dr. Jewell. He is a 39 year old male [...] , Rfl: Accu-Chek Guide (more content not included)...[facility]12-19-2024 NoteNotified coordinator Vik Dan, patent is ok for kidney/[facility] NoteI saw the patient in clinic. [...] and patient financial responsibility forms they signed. [facility]11-26-2024 NoteTransplant Nutrition Assessment Name: Yoel Tamayo : 1985 Assessment date: 07/14/2024 PMH: ischemic cardiomyopathy, DM, anasarca, anemia, ESRD, VA, HLD, HTN. Dialysis HX: on HD Height: [...] PCP manages, he does not have an supervisor coke handling. Diet Recall Breakfast: Skips Lunch: Snacks on [...] Appears in adequate in protein. Reported Medications/Supplements: phosVivastream Nutrition Labs: phos 4.2, states albumin is [...] feeling low. Does not follow with an supervisor coke handling. -Patient has questionable compliance issues. -RD discussed the importance of good blood sugar control for the success of his kidney transplant and he needs to follow a diabetic diet. Discussed eating three meals daily, including more protein sources, fruits and vegetables. Patient was not interested in diet education. -Recommend checking an A1C, consider referral to an supervisor coke handling. -Consider referral to a GI doctor due to chronic constipation and frequent vomiting to rule out gastroparesis. Mary Sullivan RDACMC Healthcare System [facility]11-26-2024 NotePre- Transplant Kidney Evaluation Surgery Consultation Chief Complaint Patient presents with Kidney Eval PCP: Eusebio Olivares DO Txp Referring: Nancy Haas MD Preferred Pharmacy: [facility]/pharmacy #[id number] [place] [address] Organ: Kidney Subjective Visit Vitals BP 127/74 (BP Location: Right arm, Patient Position: Sitting, BP Cuff Size: Adult) Pulse 72 Resp 17 Ht 1.854 m (6' 1 ) Wt 71.7 kg (158 lb) SpO2 99% BMI 20.85 kg/m??? BSA 1.92 m??? Allergies Allergen Reactions Ticagrelor Shortness of breath Medication Documentation Review Audit Reviewed by Lesa Hurt MA (Associate Sales) on 07/14/24 at 0854 Medication Order Taking? Sig Documenting Provider Last Dose Status Accu-Chek Guide Me Glucose Mtr [facility] [id number] Yes See administration instructions. Historical Provider, Taking Active Accu-Chek Guide test strips strip [id number] Yes USE TO TEST FOUR TIMES A DAY DIRECTED Historical Provider, Taking Active Accu-Chek Softclix Lancets [facility] [id number] Yes USE TO TEST BLOOD SUGAR TWICE DAILY Historical Provider, Taking Active albuterol 90 mcg/actuation inhaler [id number] Yes 2 puffs. Historical Provider, Taking Active aluminum sulfate-calcium acetate (Domeboro) 952-1,347 mg packet [id number] Yes 1,334 mg. Historical Provider, Taking Active amLODIPine (Norvasc) 2.5 mg tablet [id number] Yes Take 2.5 mg by mouth in the morning. Historical Provider, Taking Active aspirin 81 mg chewable tablet [id number] Yes 81 mg. Historical Provider, Taking Active atorvastatin (Lipitor) 80 mg tablet [id number] Yes 80 mg. Historical Provider, Taking Active azithromycin (Zithromax) 250 mg tablet [id number] No TAKE 2 TABLETS BY MOUTH TODAY, THEN TAKE 1 TABLET DAILY FOR 4 DAYS DIRECTED Historical Provider, Not Taking Active brimonidine (Alphagan) 0.2 % ophthalmic solution [id number] No Administer 1 drop into affected eye(s) 3 times a day. Historical Provider, Not Taking Active calcium acetate (Phoslo) 667 mg capsule [id number] Yes Take 1,334 mg by mouth. Historical Provider, Taking Active carvedilol (Coreg) 25 mg tablet [id number] Yes Take 25 mg by mouth with breakfast and with evening meal. Historical Provider, Taking Differently Active clindamycin (Cleocin) 150 mg capsule [id number] No TAKE 4 CAPSULES BY MOUTH 1 HOUR PRIOR TO APPOINTMENT Historical Provider, Not Taking Active clopidogrel (Plavix) 75 mg tablet [id number] Yes Take 75 mg by mouth in the morning. Historical Provider, Taking Active Dexcom G6 Sensor device [id number] No CHANGE SENSOR EVERY 10 DAYS. ICD 10 E10.65 Historical ProviderMD Not Taking Active Dexcom G6 Transmitter device [id number] No CHANGE EVERY 90 DAYS DX E10.65 Historical ProviderMD Not Taking Active diclofenac (Voltaren) 1 % topical gel [id number] Yes Apply 2 g topically 3 times a day. Historical ProviderMD Taking Active dorzolamide HCl/PF (dorzolamide, PF,) 2 % drops [id number] No Administer 1 drop into affected eye(s) 3 times a day. Historical MD Ramo Not Taking Active ergocalciferol (Vitamin D-2) 1.25 MG (83832 Units) capsule [id number] No Take 1 capsule by mouth. Historical MD Ramo Not Taking Active escitalopram (Lexapro) 10 mg tablet [id number] No Take 10 mg by mouth. Historical ProviderMD Not Taking Active famotidine (Pepcid) 20 mg tablet [id number] Yes .COMPLEX Historical ProviderMD Taking Active ferric gluconate (Ferrlecit) 62.5 mg/5 mL injection [id number] No Infuse 62.5 mg into a venous catheter. Historical MD Ramo Not Taking Active furosemide (Lasix) 40 mg tablet [id number] Yes Take 80 mg by mouth two times daily. Historical ProviderMD Taking Differently Active GaviLyte-G 236-22.74-6.74 -5.86 gram solution [id number] No TAKE 240 ML EVERY 10 MINUTES UNTIL FECAL EFFLUENT IS CLEAR Historical MD Ramo Not Taking Active heparin sodium,porcine/PF (heparin, porcine, PF,) 1,000 unit/mL solution [id number] Yes Infuse 1,000 Units into a venous catheter. Historical MD Ramo Taking Active hydrALAZINE (Apresoline) 50 mg tablet [id number] Yes Take 100 mg by mouth two times daily. Historical ProviderMD Taking Differently Active hydrOXYzine HCL (Atarax) 25 mg tablet [id number] Yes Take 25 mg by mouth. Historical ProviderMD Taking Active hyoscyamine (Anaspaz,Levsin) 0.125 mg tablet [id number] No TAKE 1 TABLET BY MOUTH EVERY 6 HOURS NEEDED FOR ABDOMINAL PAIN Historical MD Ramo Not Taking Active insulin glargine (Lantus) 100 unit/mL (3 mL) injection pen [id number] Yes Inject 20 Units under the skin in the morning. Historical MD Ramo Taking Active insulin lispro (HumaLOG) 100 unit/mL injection pen [id number] Yes Inject 4 times a day before meals & bedtime. [id number]; 170-189=3units; 190-209=4units; 210-229=6units; 230-249=8units; 250-269=9units; 270-289=10units; 290-30 (more content not included)...[facility]11-26-2024 NotePre-Transplant Evaluation Nephrology Consult Chief Complaint Patient presents with Kidney Eval PCP: Eusebio Olivares, Txp Referring: Nancy Haas MD Preferred Pharmacy: [facility]/pharmacy #[id number] [place] [id number] Organ: Kidney Subjective Visit Vitals BP 127/74 (BP Location: Right arm, Patient Position: Sitting, BP Cuff Size: Adult) Pulse 72 Resp 17 Ht 1.854 m (6' 1 ) Wt 71.7 kg (158 lb) SpO2 99% BMI 20.85 kg/m??? BSA 1.92 m??? Allergies Allergen Reactions Ticagrelor Shortness of breath Medication Documentation Review Audit Reviewed by Lesa Hurt MA (Associate Sales) on 07/14/24 at 0854 Medication Order Taking? Sig Documenting Provider Last Dose Status Accu-Chek Guide Me Glucose Mtr misc [id number] Yes See administration instructions. Historical Provider, Taking Active Accu-Chek Guide test strips strip [id number] Yes USE TO TEST FOUR TIMES A DAY DIRECTED Historical Provider, Taking Active Accu-Chek Softclix Lancets misc [id number] Yes USE TO TEST BLOOD SUGAR TWICE DAILY Historical Provider, Taking Active albuterol 90 mcg/actuation inhaler [id number] Yes 2 puffs. Historical Provider, Taking Active aluminum sulfate-calcium acetate ([place]) 952-1,347 mg packet [id number] Yes 1,334 mg. Historical Provider, Taking Active amLODIPine (Norvasc) 2.5 mg tablet [id number] Yes Take 2.5 mg by mouth in the morning. Historical Provider, Taking Active aspirin 81 mg chewable tablet [id number] Yes 81 mg. Historical Provider, Taking Active atorvastatin (Lipitor) 80 mg tablet [id number] Yes 80 mg. Historical Provider, Taking Active azithromycin (Zithromax) 250 mg tablet [id number] No TAKE 2 TABLETS BY MOUTH TODAY, THEN TAKE 1 TABLET DAILY FOR 4 DAYS DIRECTED Historical ProviderMD Not Taking Active brimonidine (Alphagan) 0.2 % ophthalmic solution [id number] No Administer 1 drop into affected eye(s) 3 times a day. Historical ProviderMD Not Taking Active calcium acetate (Phoslo) 667 mg capsule [id number] Yes Take 1,334 mg by mouth. Historical ProviderMD Taking Active carvedilol (Coreg) 25 mg tablet [id number] Yes Take 25 mg by mouth with breakfast and with evening meal. Historical Provider, Taking Differently Active clindamycin (Cleocin) 150 mg capsule [id number] No TAKE 4 CAPSULES BY MOUTH 1 HOUR PRIOR TO APPOINTMENT Historical ProviderMD Not Taking Active clopidogrel (Plavix) 75 mg tablet [id number] Yes Take 75 mg by mouth in the morning. Historical Provider, Taking Active Dexcom G6 Sensor device [id number] No CHANGE SENSOR EVERY 10 DAYS. ICD 10 E10.65 Historical ProviderMD Not Taking Active Dexcom G6 Transmitter device [id number] No CHANGE EVERY 90 DAYS DX E10.65 Historical ProviderMD Not Taking Active diclofenac (Voltaren) 1 % topical gel [id number] Yes Apply 2 g topically 3 times a day. Historical ProviderMD Taking Active dorzolamide HCl/PF (dorzolamide, PF,) 2 % drops [id number] No Administer 1 drop into affected eye(s) 3 times a day. Historical ProviderMD Not Taking Active ergocalciferol (Vitamin D-2) 1.25 MG (98903 Units) capsule [id number] No Take 1 capsule by mouth. Historical ProviderMD Not Taking Active escitalopram (Lexapro) 10 mg tablet [id number] No Take 10 mg by mouth. Historical ProviderMD Not Taking Active famotidine (Pepcid) 20 mg tablet [id number] Yes .COMPLEX Historical Provider, Taking Active ferric gluconate (Ferrlecit) 62.5 mg/5 mL injection [id number] No Infuse 62.5 mg into a venous catheter. Historical ProviderMD Not Taking Active furosemide (Lasix) 40 mg tablet [id number] Yes Take 80 mg by mouth two times daily. Historical ProviderMD Taking Differently Active GaviLyte-G 236-22.74-6.74 -5.86 gram solution [id number] No TAKE 240 ML EVERY 10 MINUTES UNTIL FECAL EFFLUENT IS CLEAR Historical Provider, Not Taking Active heparin sodium,porcine/PF (heparin, porcine, PF,) 1,000 unit/mL solution [id number] Yes Infuse 1,000 Units into a venous catheter. Historical Provider, Taking Active hydrALAZINE (Apresoline) 50 mg tablet [id number] Yes Take 100 mg by mouth two times daily. Historical Provider, Taking Differently Active hydrOXYzine HCL (Atarax) 25 mg tablet [id number] Yes Take 25 mg by mouth. Historical Provider, Taking Active hyoscyamine (Anaspaz,Levsin) 0.125 mg tablet [id number] No TAKE 1 TABLET BY MOUTH EVERY 6 HOURS NEEDED FOR ABDOMINAL PAIN Historical ProviderMD Not Taking Active insulin glargine (Lantus) 100 unit/mL (3 mL) injection pen [id number] Yes Inject 20 Units under the skin in the morning. Historical Provider, Taking Active insulin lispro (HumaLOG) 100 unit/mL injection pen [id number] Yes Inject 4 times a day before meals & bedtime. [id number]; 170-189=3units; 190-209=4units; 210-229=6units; 230-249=8units; 250-269=9units; 270-289=10units; 290-300=12units (more content not included)...[facility]11-26-2024 NoteIdentifying Information Name: Yoel Tamayo : 1985 Assessment date: 07/14/2024 Transplant type: Kidney Transplant Evaluation - 07/14/2024 Primary language: [place]er Zoroastrian/spirituality: Christian People present at assessment: none Do you have any sabianist, ethical or personal objections to accepting blood products, surgery and/or transplant? No Citizenship Where were you born? In the [place] in [facility] Where do you currently live or are staying? [place] Is this greater than 3-4 hours from [facility]? No. 1 H Family Background and Supportive Relationships Mother: COD: morel cancer Father: 60 Healthy Siblings: Sister: healthy Children: Biological 4 Bio 1 adoptive 1 passed Number of children, living or (UNOS question): 6 Names, age, health status, relationship, address: [place], 13, healthy, daughter, Ócsar Castellano, 12, healthy, daughter, Óscar Kuldeep, 10, healthy, son, Óscar Mg, 9, son, Óscar- he was a twin Adoptive son Felipe- 6, son, Marital/relationship status: for 2 years Household composition: Patient Are there any current or past significant life changes or traumatic events? No, mom passing and son passing. Support / Caregiver Plans Who will be your primary caregiver? 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 mother and/or father Jake Contact #: [phone] Health status & availability: Healthy, retired, able [...] # Group # [employer] [facility]* YOEL TAMAYO [id number] [facility] [address] MEDICAID [facility]* YOEL TAMAYO [id number] [address] [facility] Are you aware of a coordination of benefits with your insurance and Medicare (if applicable)? yes Are you receiving assistance through [facility] JANAE Program: No Medication Coverage [...] they impact you? 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 Dialysis center, schedule, type, and start date (if applicable): Dialysis History Start End Type Center Comments 03/01/2023 [facility] Dialysis Center Information [facility] Address: [address] [place] [address], [place] [address] Dialysis Schedule: MWF, 7AM, 3.5, 2-4K Treatment Compliance / Adherence How do you manage your medications now? Memory and Pillbox Patient fills Do you have any difficulties in getting or taking your medications? None as long ist in stock. Having issues with bloodsugars and dexcom. Do you know what you take (more content not included)...[facility]11-26-2024 [id number] Yoel Tamayo 1985 M Date Provider Department Center 07/14/2024 YESIKA HERNANDEZ None No family history on file Level of Service:94706 MS OFFICE/OUTPATIENT NEW HIGH MDM 60 MINUTES Reason for Visit and Comments: Kidney Eval [[id number]][facility]11-26-2024 Note Coordinator met with patient for initial transplant evaluation appointment in Transplant clinic today. Explained transplant process and consents with patient. Answered patient questions. Social work, finance and vest finisher in to see patient. Dr. Jewell in for H&P and transplant plan. Dr. Cardenas in for surgical evaluation. Coordinator provided copy of plan to patient and reviewed it with them. Patient aware further testing needed and to keep transplant team updated. Understanding verbalized by patient. Superintendent Refuse Disposal provided verbal order for patient labs and CT scan today. Work-up Needed-Date of Eval Letter Mailed to patient and faxed to Superintendent Refuse Disposal/ Dialysis Center. Product Safety Consultant provided patient TE folder with education on various transplant consents, the workup process, surgery details, postop expectations, transplant statistics, and living donor information. Answered patient questions and verified understanding. [facility]11-26-2024 NoteCLINICAL INFORMATION: Renal failure. Transplant evaluation. Diabetes. [...] low as reasonably achievable. Electronically signed: REINA THOMAS.[facility] 06-22-2024 Evaluation note* Diagnosis Onset Date Resolution Status Admit Date End-stage renal disease (ESRD) acuteNovember 2023 12:25pmHypertensive CKD, ESRD on dialysisacuteNov2023 12:25pmHypoglycemiaacuteNov2023 12:25pmHypothermiaacute June 22, 2024 12:25pmMissed dialysisacuteNovember 2023 12:25pm Secondary hyperparathyroidismacuteNov2023 12:25pmType 1 diabetes mellitusacuteNov2023 12:25pmAcute bacterial bronchitisacuteJanuary 2024 1:27amAnemia of renal diseaseacuteJanuary 2024 1:27amCAP (community acquired pneumonia)acuteJanuary 2024 1:27amChronic combined systolic (congestive) and diastolic (congestive) heart failureacuteJanuary 2024 1:27amCough with hemoptysisacuteJanuary 2024 1:27amESRD on hemodialysisacuteJanuary 2024 1:27amHypertensionacuteJanuary 2024 1:27amPulmonary edemaacuteJanuary 2024 1:27amType 1 diabetes mellitusacute August 28, 2024 1:27am [facility] Work Phone: 1(247) 156-907411-04-2024 Evaluation note* Diagnosis Onset Date Resolution Status Admit Date End-stage renal disease (ESRD) acuteNov2023 12:25pmHypertensive CKD, ESRD on dialysisacuteNov2023 12:25pmHypoglycemiaacuteNov2023 12:25pmHypothermiaacute June 22, 2024 12:25pmMissed dialysisacuteNov2023 12:25pm Secondary hyperparathyroidismacuteNov2023 12:25pmType 1 diabetes mellitusacuteNov2023 12:25pmAcute bacterial bronchitisacuteJanuary 2024 1:27amAnemia of renal diseaseacuteJanuary 2024 1:27amCAP (community acquired pneumonia)acuteJanuary 2024 1:27amChronic combined systolic (congestive) and diastolic (congestive) heart failureacuteJanuary 2024 1:27amCough with hemoptysisacuteJanuary 2024 1:27amESRD on hemodialysisacuteJanuary 2024 1:27amHypertensionacuteJanuary 2024 1:27amHypertensive CKD, ESRD on dialysisacuteJanuary 2024 1:27amPulmonary edemaacuteJanuary 2024 1:27amSecondary hyperparathyroidismacuteJanuary 2024 1:27amType 1 diabetes mellitusacuteJanuary 2024 1:27amType 2 diabetes mellitus with diabetic chronic kidney diseaseacuteJanuary 2024 1:27am [facility] Work Phone: 1(673) 448-474311-04-2024 Evaluation note* Diagnosis Onset Date Resolution Status Admit Date End-stage renal disease (ESRD) acuteNovember 2023 12:25pmHypertensive CKD, ESRD on dialysisacuteNovember 2023 12:25pmSecondary hyperparathyroidismacuteNov2023 12:25pm Type 1 diabetes mellitusacuteNovember 2023 12:25pmHypoglycemiadeleted November 2023 12:25pmHypothermiadeleted[facility] 2023 12:25pmMissed dialysisdeletedFormerly [facility] 12:25pmAcute bacterial bronchitisacuteJanuary 2024 1:27amAnemia of renal diseaseacuteJanuary 2024 1:27amCAP (community acquired pneumonia)acuteJanuary 2024 1:27amChronic combined systolic (congestive) and diastolic (congestive) heart failureacuteJanuary 2024 1:27amCough with hemoptysisacuteJanuary 2024 1:27amESRD on hemodialysisacuteJanuary 2024 1:27amHypertensive CKD, ESRD on dialysis acuteJanuary 2024 1:27amPulmonary edemaacuteJanuary 2024 1:27am Secondary hyperparathyroidismacuteJanuary 2024 1:27amType 1 diabetes mellitusacuteJanuary 2024 1:27amType 2 diabetes mellitus with diabetic chronic kidney diseaseacuteJanuary 2024 1:27amHypertensiondeletedJanuary 2024 1:27amASHD (arteriosclerotic heart disease)acuteJanuary 2024 1:01pmEnd-stage renal disease (ESRD)acuteJanuary 2024 1:01pmESRD on hemodialysisacuteJanuary 2024 1:01pmInsomniaacuteJanuary 2024 1:01pm Nicotine addictionacuteJanuary 2024 1:01pmPrimary hypertensionacuteJanuary 2024 1:01pmWellness examinationacuteJanuary 2024 1:01pm [facility] Work Phone: 1(118) 599-926711-04-2024 Evaluation note* Diagnosis Onset Date Resolution Status Admit Date Hypertensive CKD, ESRD on dialysis acuteNovember 2023 12:25pmSecondary hyperparathyroidismacuteNovember 2023 12:25pmEnd-stage renal disease (ESRD)deletedFormerly [facility] 20[facility] 12:25pm Hypoglycemiadeleted[facility] 2023 12:25pmHyp[facility]adel[facility] 2023 12:25pmMissed dialysisdeletedGate[facility] 2023 12:25pmType 1 diabetes mellitusdeletedGateway Rehabilitation Hospital 2023 12:25pmAnemia of renal diseaseacuteJanuary 2024 1:27amESRD on hemodialysisacuteJanuary 2024 1:27amHypertensive CKD, ESRD on dialysisacuteJanuary 2024 1:27amSecondary hyperparathyroidism acuteJanuary 2024 1:27amAcute bacterial bronchitisresolvedJanuary 2024 1:27amCough with hemoptysisresolvedJanuary 2024 1:27amCAP (community acquired pneumonia)deletedJanuary 2024 1:27amChronic combined systolic (congestive) and diastolic (congestive) heart failuredeletedJanuary 2024 1:27amHypertensiondeletedJanuary 2024 1:27amPulmonary edemadeletedJanuary 2024 1:27amType 1 diabetes mellitusdeletedJanuary 2024 1:27amType 2 diabetes mellitus with diabetic chronic kidney diseasedeletedJanuary 2024 1:27amASHD (arteriosclerotic heart disease)acuteJanuary 2024 1:01pmESRD on hemodialysisacuteJanuary 2024 1:01pmInsomniaacuteJanuary 2024 1:01pmPrimary hypertensionacuteJanuary 2024 1:01pmWellness examination acuteJanuary 2024 1:01pmCAP (community acquired pneumonia)deletedJanuary 2024 1:01pmNicotine addictiondeletedJanuary 2024 1:01pmAnemia of renal diseaseacuteJanuary 2024 1:09amCAP (community acquired pneumonia) acuteJanuary 2024 1:09amConstipationacuteJanuary 2024 1:09amCOVID-19 acuteJanuary 2024 1:09amESRD on hemodialysisacuteJanuary 2024 1:09am Hypertensive CKD, ESRD on dialysisacuteJanuary 2024 1:09amSecondary hyperparathyroidismacuteJanuary 2024 1:09am [facility] Work Phone: 1(396) 415-329510-24-2024 History of Present illness Narrative* Brianna Gomez, DO - 06/11/2024 9:50 AM EDT Subjective Yoel Tamayo is a 39 y.o. male Chief Complaint Follow-up 39-year-old gentleman returns for follow-up following recent hospitalization at [facility] when he was visiting for his [...] dialysis, looking forward to kidney transplantation at [facility] in the near future. All [facility] imaging, lab studies, discharge summary, cardiology consultation and cath notes are reviewed He has a history of large anterior VA with severe three-vessel disease and eventually underwent [...] 3. Essential hypertension, benign 4. History of VA (myocardial infarction) 5. Mixed hyperlipidemia 6. Status post insertion of drug eluting coronary artery stent 7. ESRD (end stage renal disease) on dialysis (Multi) 8. Type 2 diabetes mellitus with chronic kidney disease on chronic dialysis, with long-term currentuse of insulin (Multi) 9. BMI 21.0-21.9, adult 10. Current every day smoker Scribe Attestation By signing my name below, I, AlanaAntonio Tolliver LPN attest that this documentation has been [...] exam, discussion and plan. [facility] Work Phone: 1(627) 408-740610-24-2024 Instructions* Patient Instructions* Alana Pace LPN - [...] time of your visit. documented [facility] Work Phone: 1(444) 937-844010-17-2024 History of Present illness Narrative* David Ferrell DPM - 06/04/2024 9:20 AM EDT Patient: Yoel Martinez Debbi : 1985 PCP: Eusebio Olivares MD SUBJECTIVE [...] Patient has longstanding history and history of VA x2 with cardiac stents as well as multiple myeloma history. Patient also on dialysis with end-stage renal disease Allergies: No Known Allergies Past Medical History: Past Medical History: Diagnosis Date Cancer ([facility]) CHF (congestive heart failure) ([facility] Diabetes ([facility]) End stage renal disease ([facility]) Heart attack ([facility]) Hypertension ([facility]) MGUS (monoclonal gammopathy of unknown significance) Renal [...] Rfl: 2 ergocalciferol (Vitamin D2) 1.25 MG (20518 UT) capsule, Take 1 capsule by mouth [...] NEEDED FOR NAUSEA/ VOMITING, Disp: , Rfl: Ojsurmezxlk-Ixvjgiyi-Morbayoex 1-0.5-0.075 % solution, Administer 1 drop into [...] Resource Strain: Low Risk (03/14/2024) Received from [facility] Overall Financial Resource Strain (CARDIA) Difficulty of Paying Living Expenses: Not hard at all Food Insecurity: No Food Insecurity (03/14/2024) Received from [facility] Hunger Vital Sign Worried About Running Out of Food in the Last Year: Never true Ran Out of Food in the Last Year: Never true Transportation Needs: No Transportation Needs (03/14/2024) Received from [facility] PRAPARE - Transportation Lack of Transportation (Medical): No Lack of Transportation (Non-Medical): No Physical Activity: Not on file Stress: Not on file Social Connections: Not on file Intimate Partner Violence: Unknown (11/26/2023) [facility] [place] Safety & Environment Fear of Current or Ex-Partner: Not on file Emotionally Abused: Not on file Physically Abused: Not on file Sexually Abused: Not on file Physically or Sexually Abused: Not on file Housing Stability: Not on file ROS: General: denies fever, chills, fatigue, malaise Cardiovascular: denies CP, palpitations, irregular rhythms. Positive history of cardiac stents in VA and on blood thinners OBJECTIVE LE EXAM: DERM: Elongated thick yellow crumbly nails digits 1 through 10. 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 Type 2 diabetes mellitus without complication, with long-term current use of insulin ([facility]) 2. Pain due to onychomycosis of toenails [...] feet and discussed proper shoe gear. David Ferrell DPM documented in this encounterSaint John's Health [id number] Progress note Author Angel Cook [facility] March 10, 2024 11:20amNote Date/TimeJuly 2023 11:20[place] [address] Nephrology Progress Note Signed Patient: Yoel Tamayo MR#: [id number] : 1985 Acct:[id number] Age/Sex: 39 / M Adm Date: 4 Loc: Room: 4H5372-9 Type: ADM IN Attending Dr: Kim Renteria MD Copies to: ~ Date of Service: 03/10/2024 Subjective Subjective Narrative: This is a 39-year male with a medical history of ESRD, DM, HTN, CAD s/p PCI, anemia of renal disease and secondary hyperparathyroidism was admitted to the emergency room for shortness of breath. Patient was recently hospitalized at [facility] for shortness of breath and he was discharged on Lasix with prednisone Augmentin. On evaluation emergency room patient was found to have hyperkalemia and hyperglycemia with blood glucose level of 1006. His ABG showed pH of 7.35 with pCO2 37.7 and pO2 46.9. His beta- hydroxybutyratewas normal. Patient was hypoxic and was placed [...] February 2023. He currently goes to the [facility] dialysis unit 3 times a week on [...] Skin: No rashes , warm to touch 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,Alert, following simple command Musculoskeletal: No swelling [...] Tablet) 2.5 mg PO DAILY RACHELL Stop: 03/11/25 08:59 Aspirin (Aspirin 81 Mg Tablet.) 81 mg PO DAILY RACHELL Stop: 03/10/25 08:59 Last Admin: 03/10/24 08:16 Dose: 81 mg Atorvastatin Calcium (Atorvastatin 80 Mg Tablet) 80 mg PO QPM [facility] Stop: 03/10/25 20:59 Calcium Acetate (Calcium Acetate 667 Mg Capsule) 1,334 mg PO TID.WITH.MEALS [facility] Stop: 03/10/25 11:59 Carvedilol (Carvedilol 25 Mg Tablet) 25 mg PO BID.WITH.MEALS RACHELL Stop: 03/09/25 16:59 Last Admin: 03/10/24 08:16 Dose: 25 mg Carvedilol (Carvedilol 25 Mg Tablet) 25 mg PO BID.WITH.MEALS RACHELL Stop: 03/10/25 16:59 Clopidogrel Bisulfate (Clopidogrel Bisulfate [...] Tab.Er.12h) 1,200 mg PO BID RACHELL Stop: 03/10/25 20:59 Heparin Sodium (Porcine) (Heparin [...] 50 Mg Tablet) 50 mg PO TID [facility] Stop: 03/10/25 13:59 Sodium Chloride (0.9% Sodium Chloride 1,000 Ml) 1,000 mls @ 0 mls/hr MISCELLANE.Q0M PRN PRN Reason: Dialysis Stop: 03/09/25 09:20 Last Infusion: 03/09/24 11:17 Dose: Infused Ceftriaxone Sodium (Rocephin) 1 gm in 50 mls @ 100 mls/hr IV Q24H [facility] Last Admin: 03/09/24 15:23 Dose: 100 mls/hr Insulin Aspart (Insulin Aspart 300 Units/3 Ml Insuln.Pen) 0 units SUBCUT TID.WITH.MEALS [facility]; Protocol Stop: 03/10/25 07:59 Last Admin: 03/10/24 07:27 Dose: Not Given Insulin Glargine (Insulin Glargine 300 Units/3 Ml Insuln.Pen) 15 units SUBCUT DAILY [facility] Stop: 03/10/25 08:59 Last Admin: 03/10/24 08:17 Dose: 15 units Isosorbide Mononitrate (Isosorbide Mononitrate 24hr Er 60 Mg Tab.Er.24h) 60 mg PO BID [facility] Stop: 03/10/25 20:59 Midodrine (Midodrine 5 Mg [...] 40 Mg Tablet.Dr) 40 mg PO BID [facility] Stop: 03/11/25 08:59 Paricalcitol (Paricalcitol 10 Mcg/2 [...] Appearance Clear Urine pH 6.5 Ur Specific [place] 1.013 Urine Protein 300 H Urine Glucose (UA) >=1000 H Urine Ketones Negative Urine Occult Blood 1+ H Urine Nitrite Negative Ur Leukocyte Esterase Negative Urine RBC 1-2 Urine WBC 5-9 H Urine Bacteria Rare Radiology Impressions Impressions - last 24 hours: Any impression(s) listed above is documentation that was entered by the reading physician into a diagnostic report(s) for Yoel Tamayo. I have reviewed the report(s) and am [...] hypertensive nephrosclerosis. He currently goes to the [facility] dialysis unit 3 times a week on [...] and CBC daily. * Documented By: Angel Cook MD 03/10/24 1118 Signed By: <Electronically signed by Angel Cook MD> 03/10/24 1120 [facility] Work Phone: 1(264) 589-842107-23-2024 Progress note Author Kim Renteria [facility] March 10, 2024 9:30amNote Date/TimeJuly 2023 9:30[place] [address] Hospitalist Progress Note Signed Patient: Yoel Tamayo MR#: [id number] : 1985 Acct:[id number] Age/Sex: 39 / M Adm Date: 4 Loc: Room: 4O7322-4 Type: ADM IN Attending Dr: Kim Renteria MD Copies to: ~ Date of Service: 03/10/2024 Subjective Subjective Narrative: On examination patient is on room air with no signs of respiratory distress. Heis feeling significant better as compared to yesterday. Hyperglycemia has improved and has been tapered off insulin dripsince yesterday. Apparently patient was not taking his short acting insulin while at home as he wasbusy with his kids. He does not check [...] Administration Clopidogrel Bisulfate 75 mg 03/10/24 09:00 07/23/24 08:16 Clopidogrel Bisulfate 75 Mg Tablet PO [...] Vial SUBCUT 03/09/25 13:59 Not Given Q8HR [facility] Hydralazine HCl 10 mg 03/09/24 11:56 03/09/24 [...] Insuln.Pen SUBCUT 03/10/25 07:59 Not Given TID.WITH.MEALS [facility] Protocol Insulin Glargine 15 units 03/10/24 09:00 [...] Lasix, amlodipine, aspirin and Plavix. Echocardiogram has beenordered. Will repeat chest x-ray as a follow-up [...] By: <Electronically signed by Kim Renteria MD> 03/10/24929 [facility] Work Phone: 1(169) 955-815407-22-2024 Consult note Author Angel Cook [facility] March 09, 2024 5:14pmNote Date/TimeJuly 2023 12:51pm[place] [address] Nephrology Consult Note Signed Patient: Yoel Tamayo MR#: [id number] : 1985 Acct:[id number] Age/Sex: 39 / M Adm Date: 4 Loc: Room: [address] [place] [address] Type: ADM IN Attending Dr: Kim Renteria [...] of breath. Patient was recently hospitalized at [facility] for shortness of breath and he was discharged on Lasix with prednisone Augmentin. On evaluation emergency room patient was found to have hyperkalemia and hyperglycemia with blood glucose level of 1006. His ABG showed pH of 7.35 with pCO2 37.7 and pO2 46.9. His beta- hydroxybutyratewas normal. Patient was hypoxic and was placed [...] February 2023. He currently goes to the [facility] dialysis unit 3 times a week on MWF schedule. Patient has been noncompliant with his fluid restriction. She had a dialysis onFriday and was still above his target weight after the treatment. I was consulted by the ER physician for urgent need of dialysis due to fluid overload. Patient was seen examined bedside during hemodialysis. He was feeling isaias rgic. Review of Systems Review of Systems All [...] polydipsia Dermatological: denies any itching or rash REPLACED BY [facility] Medical History Cataract Acute exacerbation of chronic [...] 03/02/24 [Rx] 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 meter,continuous (FreeStyle Ramy 3 [place]) #1 ea 03/02/24 [Rx] 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 sensor (FreeStyle Ramy 3 Sensor device) #1 ea 03/02/24 [Rx] furosemide 40 mg tablet 40 mg PO BID@0800,1600 #60 tabs 03/02/24 [Rx] guaifenesin 600 mg tablet, extended release 12 hr (Mucinex) 1,200 mg (2 x 600 mg) PO BID 7 days #28tabs 03/02/24 [Rx] prednisone 20 mg tablet 20 [...] 50 mls @ 100 mls/hr IV Q24H RACHELL Midodrine (Midodrine 5 Mg Tablet) 5 mg [...] Skin: No rashes , warm to touch 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,Alert, following simple command Musculoskeletal: No swelling [...] Alec Flynn M.D.03/09/2024 7:30 AM Dictation Location: [place] [address] Any impression(s) listed above is documentation that was entered by the reading physician into a diagnostic report(s) for Yoel Tamayo. I have reviewed the report(s) and am [...] hypertensive nephrosclerosis. He currently goes to the [facility] dialysis unit 3 times a week on [...] us with any question. Documented By: Angel Cook MD 03/09/24 1240 Signed By: <Electronically signed by Angel Cook MD> 03/09/24 9446 [facility] Work Phone: 1(896) 554-317407-22-2024 History and physical note Author Kim Renteria [facility] March 09, 2024 11:56amNote Date/TimeJuly 2023 10:[address] [address] Hospitalist H&P Signed Patient: Yoel Tamayo MR#: [id number] : 1985 Acct:[id number] Age/Sex: 39 / M Adm Date: 4 Loc: Room: [address] [place] [address] Type: ADM IN Attending Dr: Kim Renteria MD Copies to: Eusebio Olivares,DO Kim Renteria MD~ HPI DATE OF EXAMINATION: 03/09/24 CHIEF [...] to ER with complaint of shortness of breathand his labsshowed potassium 5.7, HCO3 20.7 with a random glucose of 1006. BNP 4104. ABG showed pH of 7.35 with pCO2 37.7 and pO2 of 46.9. Found to be hypoxic and placed on high flow oxygen. Beta-hydroxybutyrate level 0.27. Chest x-ray showing similar bilateral groundglass parenchymal densities andblood cultures have been drawn. On examination patient [...] Unobtainable due to mental status [facility] Medical History Cataract Acute exacerbation of chronic [...] 03/02/24 [Rx] 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 meter,continuous (FreeStyle Ramy 3 [place]) #1 ea 03/02/24 [Rx] 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 sensor (FreeStyle Ramy 3 Sensor device) #1 ea 03/02/24 [Rx] furosemide 40 mg tablet 40 mg PO BID@0800,1600 #60 tabs 03/02/24 [Rx] guaifenesin 600 mg tablet, extended release 12 hr (Mucinex) 1,200 mg (2 x 600 mg) PO BID 7 days #28tabs 03/02/24 [Rx] prednisone 20 mg tablet 20 [...] % (Auto) 3.8 % (.) 03/09/24 05:55 [place] % (Auto) 4.4 % (.) 03/09/24 05:55 Eos % (Auto) 0.2 % (.) 03/09/24 05:55 Baso % (Auto) 0.8 % (.) 03/09/24 05:55 Nucleat RBC Rel Count 0.0 /100 WBC (0-0.5) 03/09/24 05:55 Neut # (Auto) 11.2 x10E3/uL (1.8-7.7) H 03/09/24 05:55 Lymph # (Auto) 0.5 x10E3/uL (1.00-4.8) L 03/09/24 05:55 [place] # (Auto) 0.5 x10E3/uL (0.0-0.8) 03/09/24 05:55 [...] coronary disease status post multiple PCI and insulin- dependent diabetes. He was recently discharge from the [...] deficit noted on examination although was limited. Consultnephrology for hemodialysis given his significant hypoxia due to fluid overload. Will repeat echocardiogram to assess his LV function since his last echo was done in 2021. Continue insulin drip untilhyperglycemia improves. DVT prophylaxis. IP vs OBS Justification [...] <Electronically signed by Kim Renteria MD> 03/09/24 1156 [facility] Work Phone: 1(172) 427-956307-14-2024 Progress note Author Chung Maria [facility] March 01, 2024 2:36pmNote Date/TimeJuly 2023 9:35[place] [address] Hospitalist Progress Note Signed Patient: Yoel Tamayo MR#: [id number] : 1985 Acct:[id number] Age/Sex: 38 / M Adm Date: 4 Loc: 4N Room: 0H8218-4 Type: ADM IN Attending Dr: Chung Maria MD Copies to: ~ Date of Service: 03/01/2024 Subjective Subjective Narrative: Seen and examined at bedside, sleeping, easily arousable reporting that he is just tired. Currentlyon room air with oxygen saturation above 90%, denies any cough. However he reports for the past fewmonths he has had no buildup of phlegm [...] 81 Mg Tab.Chew PO 03/01/25 08:59 QAM [facility] Atorvastatin Calcium 80 mg 03/01/24 21:00 Atorvastatin 80 Mg Tablet PO 03/01/25 20:59 QPM [facility] Carvedilol 25 mg 03/01/24 09:00 Carvedilol 25 Mg Tablet PO 03/01/25 08:59 BID [facility] Clopidogrel Bisulfate 75 mg 03/01/24 09:00 Clopidogrel Bisulfate 75 Mg Tablet PO 03/01/25 08:59 QAM [facility] Dextrose 0 gm 03/01/24 06:41 Dextrose 50% In Water 25 Gm/50 Ml Syringe IV-PUSH 03/01/25 06:40 PRN PRN Hypoglycemia Enoxaparin Sodium 40 mg 03/01/24 10:00 Enoxaparin 40 Mg/0.4 Ml Syringe SUBCUT 03/01/25 09:59 DAILY@10 [facility] Famotidine 40 mg 03/01/24 22:00 Famotidine 20 Mg Tablet PO 03/01/25 21:59 QHS [facility] Furosemide 40 mg 03/01/24 08:00 Furosemide 40 Mg Tablet PO 03/01/25 07:59 DAILY@0800 [facility] Glucose 0 gm 03/01/24 06:41 Dextrose 40% Gel 15 Gm Tube PO 03/01/25 06:40 PRN PRN Hypoglycemia Guaifenesin 1,200 mg 03/01/24 09:00 Guaifenesin 600 Mg Tab.Er.12h PO 03/01/25 08:59 BID [facility] Isosorbide Mononitrate 60 mg 03/01/24 22:00 Isosorbide Mononitrate 24hr Er 60 Mg Tab.Er.24h PO 03/01/25 21:59 QHS [facility] Melatonin 5 mg 03/01/24 05:13 Melatonin 5 Mg Tablet PO 03/01/25 05:12 QHS PRN Insomnia Methylprednisolone Sodium Succinate 40 mg 03/01/24 09:00 Methylprednisolone Sod Succ/Pf 40 Mg/Ml (1ml) Vial IV-PUSH 03/01/25 08:59 Q12HR [facility] Morphine Sulfate 2 mg 03/01/24 05:13 Morphine Sulfate 2 Mg/Ml Vial IV-PUSH Q4H PRN Pain Scale 8 - 10 Nitroglycerin 0.4 mg 03/01/24 06:38 Nitroglycerin 0.4 Mg Tab.Subl SUBLINGUAL 03/01/25 06:37 Q5MIN.X3 PRN Chest Pain Non-Formulary Medication 1,334 mg 03/01/24 09:00 Calcium Acetate PO 03/01/25 08:59 TID RACHELL Non-Formulary Medication 15 unit 03/01/24 09:00 Insulin Glargine [Lantus U-100 Insulin] SUBCUT 03/01/25 08:59 DAILY RACHELL Non-Formulary Medication 1 sliding scale dose 03/01/24 06:45 Insulin Lispro [Humalog Kwikpen Insulin] SUBCUT 03/01/25 06:44 USEASDIRECTD [facility] Ondansetron HCl 4 mg 03/01/24 05:13 Ondansetron 4 Mg/2 Ml Vial IV-PUSH 03/01/25 05:12 Q8H PRN Nausea And Vomiting Pantoprazole Sodium 40 mg 03/01/24 07:30 Pantoprazole 40 Mg Tablet. PO 03/01/25 07:29 BID.AC.BKFAST.SUPPER RACHELL Sertraline HCl 100 mg 03/01/24 09:00 Sertraline 100 Mg Tablet PO 03/01/25 08:59 DAILY [facility] Sodium Chloride 0 ml 03/01/24 02:53 03/01/24 [...] <Electronically signed by Chung Maria MD> 03/01/24 4359 [facility] Work Phone: 1(496) 538-451907-14-2024 Consult note Author Bryce Coy [facility] March 01, 2024 1:15pmNote Date/TimeJuly 2023 1:15pm[place] [address] Nephrology Consult Note Signed Patient: Yoel Tamayo MR#: [id number] : 1985 Acct:[id number] Age/Sex: 38 / M Adm Date: 4 Loc: N Room: [address] [place] [address] Type: ADM IN Attending Dr: Chung Maria MD Copies to: DO Bryce Leblanc MD Mohamad Akil, MD~ Providers Consult Date: 03/01/24 Requesting Provider: Chung Maria MD Primary Care Provider: Eusebio Olivares DO [facility] Reason for Consult: Management of ESRD and dialysis during hospital stay History of Present Illness: Mr. Tamayo is a 58-year-old white male with history of ESRD related to DM2 ondialysis on MWF schedule at [facility]. He presented to the hospital with shortness of breath and cough that has been getting worse recently. He reported coughing for the last 3 months that usually clear sputum. No hemoptysis or green sputum. He denies any fever or chills. He was seen at [facility] on 02/28 and was diagnosed with bronchitis and was treated with DuoNeb and was discharged. After initial improvement, patient started to be nauseated and he had numerous episodes of vomiting so he decided tocome to the ER. On arrival, patient was [...] negative unless noted below or in HPI REPLACED BY [facility] Medical History Cataract Acute exacerbation of chronic [...] 2.5 Mg Tablet) 2.5 mg PO DAILY [facility] Stop: 03/01/25 08:59 Last Admin: 03/01/24 09:40 Dose: 2.5 mg Aspirin (Aspirin 81 Mg Tab.Chew) 81 mg PO QAM [facility] Stop: 03/01/25 08:59 Last Admin: 03/01/24 09:40 Dose: 81 mg Atorvastatin Calcium (Atorvastatin 80 Mg Tablet) 80 mg PO QPM [facility] Stop: 03/01/25 20:59 Calcium Acetate (Calcium Acetate 667 Mg Capsule) 1,334 mg PO TID.WITH.MEALS [facility] Stop: 03/01/25 11:59 Last Admin: 03/01/24 12:09 Dose: 1,334 mg Carvedilol (Carvedilol 25 Mg Tablet) 25 mg PO BID [facility] Stop: 03/01/25 08:59 Last Admin: 03/01/24 09:39 Dose: 25 mg Clopidogrel Bisulfate (Clopidogrel Bisulfate 75 Mg Tablet) 75 mg PO QAM [facility] Stop: 03/01/25 08:59 Last Admin: 03/01/24 10:21 Dose: 75 mg Dextrose (Dextrose 50% In Water 25 Gm/50 Ml Syringe) 0 gm IV-PUSH PRN PRN PRN Reason: Hypoglycemia Stop: 03/01/25 06:40 Famotidine (Famotidine 20 Mg Tablet) 20 mg PO Q48H RACHELL Stop: 03/01/25 21:59 Furosemide (Furosemide 40 Mg Tablet) 40 mg PO DAILY@0800 RACHELL Stop: 03/01/25 07:59 Last Admin: 03/01/24 09:40 Dose: 40 mg Glucose (Dextrose 40% Gel 15 Gm Tube) 0 gm PO PRN PRN PRN Reason: Hypoglycemia Stop: 03/01/25 06:40 Guaifenesin (Guaifenesin 600 Mg Tab.Er.12h) 1,200 mg PO BID [facility] Stop: 03/01/25 08:59 Last Admin: 03/01/24 09:40 Dose: 1,200 mg Heparin Sodium (Porcine) (Heparin 5,000 Unit/Ml Vial) 5,000 unit SUBCUT Q12HR [facility] Stop: 03/01/25 09:44 Last Admin: 03/01/24 10:18 Dose: 5,000 unit Hydralazine HCl (Hydralazine 50 Mg Tablet) 50 mg PO TID [facility] Stop: 03/01/25 13:59 Ampicillin Sodium/Sulbactam Sodium (Unasyn) 1.5 gm in 100 mls @ 200 mls/hr IV DAILY@1700 RACHELL Insulin Aspart (Insulin Aspart 300 Units/3 Ml Insuln.Pen) 0 units SUBCUT ACHS [facility]; Protocol Stop: 03/01/25 10:29 Last Admin: 03/01/24 12:10 Dose: 9 units Insulin Glargine (Insulin Glargine 300 Units/3 Ml Insuln.Pen) 15 units SUBCUT DAILY [facility] Stop: 03/01/25 10:59 Last Admin: 03/01/24 10:19 Dose: 15 units Isosorbide Mononitrate (Isosorbide Mononitrate 24hr Er 60 Mg Tab.Er.24h) 60 mg PO BID [facility] Stop: 03/01/25 20:59 Melatonin (Melatonin 5 Mg [...] 03/01/25 05:12 Pantoprazole Sodium (Pantoprazole 40 Mg Tablet.) 40 mg PO BID.AC.BKFAST.SUPPER RACHELL Stop: 03/01/25 07:29 Last Admin: 03/01/24 10:18 Dose: 40 mg Sertraline HCl (Sertraline 100 Mg Tablet) 100 mg PO HS RACHELL Stop: 03/01/25 08:59 Sodium Chloride (Sodium Chloride [...] physician into a diagnostic report(s) for Yoel Tamayo. I have reviewed the report(s) and am [...] disease on hemodialysis in February 2023 at [facility] on MWF schedule (2) Acute [...] quite variable during hospital stay. Blood pressure hasbeen exacerbated by persistent cough. He is on [...] to see if it will improve his hypoxemiaand shortness of breath however he did refuse. [...] mg amlodipine and increase the dose tomorrow ifneeded to 10 mg daily. Change dry weight [...] this. Documented By: Bryce Coy MD 03/01/24 [id number] Signed By: <Electronically signed by MD Bryce Coy> 03/01/24 1314 [facility] Work Phone: 1(539) 914-865507-14-2024 History and physical note Author Iisdoro Mesa [facility] March 01, 2024 6:46amNote Date/TimeJuly 2023 6:32[place] [address] Hospitalist H&P Signed Patient: Yoel Tamayo MR#: [id number] : 1985 Acct:[id number] Age/Sex: 38 / M Adm Date: 4 Loc: 4N Room: [address] [place] [address] Type: ADM IN Attending Dr: Isidoro Mesa DO Copies to: DO Isidoro Leblanc, ~ HPI DATE OF EXAMINATION: 03/01/24 CHIEF COMPLAINT: shortness of breath HISTORY OF PRESENT ILLNESS: Mr Tamayo is a 38-year-old male with a past [...] this 3-month period, he did go to [facility] yesterday was diagnosed with bronchitis, received a DuoNeb treatment and was discharged. He was feeling better shortly after discharge however today he felt nauseous for roughly 45 minutes and had numer ousepisodes of vomiting so he came back to [...] He denies any further issues such as chestpain, constipation or diarrhea but says he still is little bit nauseoushowever it was relieved fromZofran he received emergency room. His last dialysis session was on Saturday, he says his dry weight is 71.5 kg and he had a full session on Saturday removed and then usual amount of fluid. Review of Systems Review of Systems All other systems reviewed & are negative unless noted below or in HPI REPLACED BY [facility] Medical History Cataract Acute exacerbation of chronic [...] % (Auto) 8.0 % (.) 03/01/24 02:55 [place] % (Auto) 5.4 % (.) 03/01/24 02:55 Eos % (Auto) 0.2 % (.) 03/01/24 02:55 Baso % (Auto) 0.8 % (.) 03/01/24 02:55 Nucleat RBC Rel Count 0.0 /100 WBC (0-0.5) 03/01/24 02:55 Neut # (Auto) 8.8 x10E3/uL (1.8-7.7) H 03/01/24 02:55 Lymph # (Auto) 0.8 x10E3/uL (1.00-4.8) L 03/01/24 02:55 [place] # (Auto) 0.5 x10E3/uL (0.0-0.8) 03/01/24 02:55 [...] Acute hypoxic respiratory failure: Plan: Admit to Medr floor, inpatient status ? Continue with supplemental [...] signed by Isidoro Mesa DO> 03/01/24 0646 [facility] Work Phone: [phone]) 809-101904-16-2024 History of Present illness Narrative* Brianna Gomez, DO - 12/03/2023 2:50 PM EDT Subjective Yoel Tamayo is a 38 y.o. male Chief Complaint Follow-up 38-year-old type I diabetic returns for follow-up and is doing well without any cardiovascular events, complaints or nitrate usage, hospitalizations or heart failure now with preserved and improved left ventricular function. He has a history of large anterior VA with severe three-vessel disease and eventually underwent [...] benign 3. Mixed hyperlipidemia 4. History of VA (myocardial infarction) 5. Status post insertion of drug eluting coronary artery stent 6. ESRD (end stage renal disease) on dialysis (Multi) 7. Current every day smoker 8. Type 2 diabetes mellitus with chronic kidney disease on chronic dialysis, with long-term currentuse of insulin (Multi) 9. BMI 22.0-22.9, adult Scribe Attestation By signing my name below, I, Alana Winkler LPN , Scribe attest that this documentation [...] exam, discussion and plan. [facility] Work Phone: 1(964) 565-949704-16-2024 Instructions* Patient Instructions* Alana Pace LPN - [...] time of your visit. [facility] Work Phone: [phone]) 784-668804-09-2024 Procedure [facility]03-14-2024 Procedure [facility]02-12-2024 History of Present illness Narrative* Nelida Carrington NP - 09/30/2023 1:00 PM EST Subjective Patient ID: Yoel Tamayo is a 38 y.o. male. LT Shoulder [...] f/u s/p MRI to be done at [facility] documented in this encounterSaint John's Health [id number] Hospital Discharge instructions Follow Up Care 09/05/2023 13:18:24 With:TRUONG MOLINA, Mickey Tovar, URL Address: [facility] [address], [place] [address]- [phone] When: Unknown [facility] 01-11-2024 Evaluation note* Encounter Date Diagnosis Assessment Notes Treatment Notes Treatment Clinical Notes Aug, AV fistula (ICD-10 - I77.0) I did review the fistula duplex today. Flow velocities are all good. The depth is good. No stenosesor narrowing identified. I do not see any indication for a fistulogram at this time. As always, I would prefer for dialysis access center use ultrasound guidance, but this is never happened yet in [facility] so I am not hopeful that is going to start now. It is unfortunate because I use ultrasound guidance every time I accessed the fistula. It would reduce complication rates, safe time and save money in the long run. I will see the patient as needed in the future. [employer] Other 01-08-2024 Evaluation note* Encounter Date Diagnosis Assessment Notes Treatment Notes Treatment Clinical Notes Aug, Diabetes mellitus with chronic k idney disease (ICD-10 - E11.22) [employer] Other 12-31-2023 Consult note Author Brianna Stewart [facility] August 18, 2023 11:30amNote Date/TimeDecember 2022 11:30[place] [id number] Cardiology Consult Note Signed Patient: Yoel Tamayo MR#: [id number] : 1985 Acct:[id number] Age/Sex: 38 / M Adm Date: 3 Loc: 3T Room: [address] [place] [address] Type: ADM INOo Attending Dr: Jorge Mederos DO Copies to: Eusebio [place],DO Brianna Oleary MD~ Cardiology HPI History of Present Illness Consult Date: 08/18/23 Reason for Consult: Chest pain HPI: Mr. Tamayo is a 38 year old male seen for the above He is individual with a diagnosis of coronary disease made last year. He presented with suspicious symptomatology but because of advanced renal insufficiency had stress testing first. It demonstratedsignificant ischemia shade single vessel distribution specifically the anterior descending artery and thereafter the patient underwent guided angiographic evaluation and intervention without significant renal injury. He has done well since. Subsequently he has developed worsening renal insufficiency is now on dialysis. He presented yesterday to [facility] with anginal type discomfort. He states it came on with activity. He tooka nitroglycerin and experienced orthostatic hypotension and syncope. [...] and no additional complaints, except as documented REPLACED BY [facility] Medical History Anxiety Asthmatic bronchitis , chronic [...] pen (Lantus Solostar U-100 Insulin) 10 unit subcutDAILY 04/12/23 [History Confirmed 06/17/23] Exam Physical Exam [...] Albumin 3.6 (3.5-5.7) gm/dL Intake and Output 12/30/23 12/31/23 12/31/23 23:59 07:59 15:59 Other: # Unmeasured Voids 1 Weight 71.6 kg Date of Last Bowel Movement 08/15/23 Patient Weight 08/18/23 23:59 Weight 71.6 kg Lab 08/18/23 07:12 PT 12.0 INR 1.1 APTT 37.6 H A&P - Cardiology (1) CAD (coronary artery disease): Assessment/Problem Details: EKGPatient's coronary disease appears stable. He has no changes to suggest infarct and his troponinelevation is actually his baseline hence unchanged frombefore. Code(s): I25.10 - Atherosclerotic heart disease of [place] coronary artery without angina pectoris (2) Chest pain, rule out acute myocardial infarction: Assessment/Problem Details: Chest pain may have been noncardiac but the possibility of anginal also exists. He is already on isosorbide mononitrate and beta-blockers. I believe the addition of amlodipine may prove beneficial atreducing afterload hence myocardial oxygen consumption and demand. This in turn will reduce the prop ensity to anginal discomfort Code(s): R07.9 - Chest pain, unspecified Plan Add amlodipine 2.5 mg a day. Other medicines as before. Patient is otherwise stable and suitable for discharge. Documented By: Brianna Stewart MD [id number] Signed By: <Electronically signed by MD Brianna Stewart> 08/18/23 1130 [facility] Work Phone: 1(726) 910-907112-31-2023 History and physical note Author Law Cano [facility] August 18, 2023 6:58amNote Date/TimeDecember 2022 5:48[place] [address] Hospitalist H&P Signed Patient: Yoel Tamayo MR#: [id number] : 1985 Acct:[id number] Age/Sex: 38 / M Adm Date: 3 Loc: 3T Room: [address] [place] [address] Type: ADM INOo Attending Dr: Law Cano MD Copies to: DO Law Leblanc MD~ HPI DATE OF EXAMINATION: 08/18/23 HISTORY OF PRESENT ILLNESS: This is a pleasant 38M with PMH of HTN, DM, HLD, CAD s/p stenting, HF, ESRD on HD, GERD, anxiety who presented with chest pain to [facility] ER and transferred for the [...] care Discussed with:?the medical team, the patient REPLACED BY [facility] Medical History Anxiety Asthmatic bronchitis , chronic [...] months Social History Comments: lives with dad [employer] Medications and Allergies Allergies No Known Allergies [...] pen (Lantus Solostar U-100 Insulin) 10 unit subcutDAILY 04/12/23 [History Confirmed 06/17/23] Exam Physical Exam [...] signed by Law Cano MD> 08/18/23 0658 [facility] Work Phone: [phone]) 612-747112-26-2023 Evaluation note* Encounter Date Diagnosis Assessment Notes Treatment Notes Treatment Clinical Notes Jul, ASHD (arteriosclerotic heart dis ease) (ICD-10 - I25.10) This patient is stable without activity related CP, dyspnea or lightheadedness. They are instructedto continue exercise and AHA diet plan. Continue secondary prevention measures. Jul,rimary hypertension (ICD-10 - I10)This patient is instructed to consume a healthy, low-fat, low-salt diet. They are also encouraged to continue exercise to achieve/maintain a normal BMI. 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 Jul,End stage renal disease (ICD-10 - N18.6)The patient is instructed on adequate control of hypertension and diabetes, if appropriate. They are also educated on the associated risks of NSAIDs and PPI use with kidney disease. They were instructed on adequate fluid balance and to avoid dehydration. Continue hemodialysis Jul,Mixed hyperlipidemia (ICD-10 - E78.2)Instructed on diet and exercise with continued statin therapy.Discussed the beneficial effects of lowering cholesterol in reducing the risk for cerebrovascular and cardiovascular disease. Jul,ependence on renal dialysis (ICD-10 - Z99.2) Jul,Mild episode of recurrent major depressive disorder (ICD-10 - F33.0) Instructed on healthy diet and exercise. Switched to Zoloft w/o much w/d symptoms Hasn't notice much improvement over Lexapro Declines adjustment in dose or augmentation [employer] Other 11-28-2023 Evaluation note* Encounter Date Diagnosis Assessment Notes Treatment Notes Treatment Clinical Notes Jun, ASHD (arteriosclerotic heart dis ease) (ICD-10 - I25.10) This patient is stable without activity related CP, dyspnea or lightheadedness. They are instructedto continue exercise and AHA diet plan. Continue secondary prevention measures. Jun,rimary hypertension (ICD-10 - I10)This patient is instructed to consume a healthy, low-fat, low-salt diet. They are also encouraged to continue exercise to achieve/maintain a normal BMI. Episodes of lightheadedness - days of dialysis he is instructed to hold morning antihypertensive - nondialysis days may need to reduce Hydralazine, discuss w/ Dr. 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 Jun,End stage renal disease (ICD-10 - N18.6)The patient is instructed on adequate control of hypertension and diabetes, if appropriate. They are also educated on the associated risks of NSAIDs and PPI use with kidney disease. They were instructed on adequate fluid balance and to avoid dehydration. Jun,Mixed hyperlipidemia (ICD-10 - E78.2)Instructed on diet and exercise with continued statin therapy.Discussed the beneficial effects of lowering cholesterol in reducing the risk for cerebrovascular and cardiovascular disease. Jun,ependence on renal dialysis (ICD-10 - Z99.2)Continue hemodialysis M/W/F Jun,Mild episode of recurrent major depressive disorder (ICD-10 - F33.0) d/c Lexapro and start Sertraline. May need to titrate to higher dose. Jun,ecreased libido (ICD-10 - R68.82)Likely multifactorial: - medications - depression - co morbid conditions Jun,eyronie's disease (ICD-10 - N48.6)He has been referred previously for this problem and was told his condition was minor. He is being referred a second time due to hx of increased pain and curvature. Discussed treatment options: - pentoxyifylline - NSAIDs (contra indicated w/ CAD, CKD) - injections - surgery Jun,OtherContinue to follow closely. No s/s GIB No bleed [employer] Other 11-16-2023 Evaluation note* Encounter Date Diagnosis [...] patient back in 2 months for checkup. [employer] Other [facility]* Encounter Date Diagnosis Assessment Notes Treatment Notes Treatment Clinical Notes May, AV fistula (ICD-10 - I77.0) I did examine the fistula. There does appear to be a competing outflow segment of the vein in the forearm. I suggest we try to either coil this or tied off. We will start with a less invasive option going to the [employer] for coil embolization of a cephalic venous tributary in the left forearm. Thisis explained to the patient he understands agrees with plan all his questions were addressed and the patient consents to this today. [employer] Other 10-10-2023 Evaluation note* Encounter Date Diagnosis Assessment Notes Treatment Notes Treatment Clinical Notes May, ASHD (arteriosclerotic heart dis ease) (ICD-10 - I25.10) This patient is stable without activity related CP, dyspnea or lightheadedness. They are instructedto continue exercise and AHA diet plan. Continue secondary prevention measures. May,Type 1 diabetes mellitus with hyperglycemia (ICD-10 - E10.65)This patient is following a comprehensive diabetic treatment [...] Microalbumin, Dilated eye exam and Foot exam May,End stage renal disease (ICD-10 - N18.6)Continue hemodialysis M/W/F Check w/ nurse to see if can check H/H, TSH and Testosterone May,nemia of renal disease (ICD-10 - D63.1)< 10gms Continue treatment w/ Nephrology. Monitor monthly No s/s bleeding [employer] Other 08-25-2023 Procedure [facility]08-23-2023 Evaluation note* Encounter Date Diagnosis Assessment Notes Treatment Notes Treatment Clinical Notes Mar, Arteriovenous fistul a occlusion, initial encounter (ICD-10 - T82.898A) The patient seems to have dual outflow tracts of his left upper extremity forearm AV fistula. I believe this may be contributing to difficulty with access. It may also be contributing to his pain. Wewill schedule a fistulogram to further investigate the fistula issues. Patient may have a componentof stenoses also as he does have some lower flow velocities near the anastomosis. Patient understands agrees with plan all his questions were addressed. We will schedule this for Saturday. [employer] Other 07-12-2023 Evaluation note* Encounter Date Diagnosis Assessment Notes Treatment Notes Treatment Clinical Notes Feb, Chronic kidney disease, stage 5 (ICD-10 - N18.5) He has a CKD due to the DM and HTN. Patient reported uremic symptoms. His AVF has matured. He is interested in HD and agreed to initiate dialysis. I coordinated with the [facility] for his admission. Also gave order for his chronic dialysis treatment. Feb,en hy kid w cr kid I-IV (ICD-10 - I12.9)Blood pressure is well controlled and he appears to be euvolemic. Advised him fluid restriction.Cont inue 40 mg daily. Continue current diabetes medication including Hydralazine, Imdur and carvedilol.I have advised him to monitor his blood pressure at home and call office if stays above 140/90 mmHg. If Bp stays high then will aid amlodipine. Feb,Hyperkalemia (ICD-10 - E87.5)He had hyperkalemia due to the advanced CKD. He stopped Lokelma. Continue low potassium diet. Feb,nemia of renal disease (ICD-10 - D63.1)Hemoglobin is below the goal and has adequate iron stores. He will receive the weekly IV iron IV and Araneps IV with hemodialysis. Feb,Secondary hyperparathyroidism (ICD-10 - N25.81)He has a secondary hyperparathyroidism due to the vitamin D deficiency.and Hyperphosphatemia. Continue oral ergocalciferol. Continue oral Tums with each meal. Advising low phosphorus diet and provideinformation about him. Feb,roteinuria (ICD-10 - R80.9)He has a proteinuria likely nephrotic range with the diabetic nephropathy. He had an mild elevated serum free light chain ratio likely due to the CKD. He has a monoclonal protein and was seen by hematology. He had a bone marrow biopsy Showed no Evidence of Myeloma or Amyloidosis. He has normal complement C3 and C4, MARYAM and ANCA serologies. Feb,iabetes mellitus with chronic kidney disease (ICD-10 - E11.22)He has insulin-dependent type 2 diabetes mellitus. Continue to follow PCP for DM management. He wastaken off of the losartan due to the advanced CKD and hyperkalemia [employer] Other 06-26-2023 Evaluation note* Encounter Date Diagnosis Assessment Notes Treatment Notes Treatment Clinical Notes Jan, Chronic kidney disease, stage 5 (ICD-10 - N18.5) He has a CKD due to the DM and HTN. His serum creatinine 5.3 mg/dL. His renal function has declinedeither due to the progression of his CKD [...] vomiting then call office to initiate hemodialysis. Jan,en hy kid w cr kid I-IV (ICD-10 - I12.9)Blood pressure is well controlled and he appears to be euvolemic. Advised him fluid restriction.Cont inue 40 mg daily. Continue current diabetes medication including Hydralazine, Imdur and carvedilol.I have advised him to monitor his blood pressure at home and call office if stays above 140/90 mmHg. If Bp stays high then will aid amlodipine. Jan,Hyperkalemia (ICD-10 - E87.5)He had hyperkalemia due to the advanced CKD. He stopped Lokelma. Continue low potassium diet. Jan,nemia of renal disease (ICD-10 - D63.1)Hemoglobin is below the goal and has adequate iron stores. Continue Retacrit to keep hemoglobin 10 to 11 g/dL Jan,Secondary hyperparathyroidism (ICD-10 - N25.81)He has a secondary hyperparathyroidism due to the vitamin D deficiency.and Hyperphosphatemia. Continue oral ergocalciferol. Continue oral Tums with each meal. Advising low phosphorus diet and provideinformation about him. Jan,roteinuria (ICD-10 - R80.9)He has a proteinuria likely nephrotic range with the diabetic nephropathy. He had an mild elevated serum free light chain ratio likely due to the CKD. He has a monoclonal protein and was seen by hematology. He had a bone marrow biopsy Showed no Evidence of Myeloma or Amyloidosis. He has normal complement C3 and C4, MARYAM and ANCA serologies. Jan,iabetes mellitus with chronic kidney disease (ICD-10 - E11.22)He has insulin-dependent type 2 diabetes mellitus. Continue to follow PCP for DM management. He wastaken off of the losartan due to the advanced CKD and hyperkalemia [employer] Other 06-19-2023 Discharge summary Author Denilson Gomez [facility] February 04, 2023 5:27pmNote Date/TimeJune 2022 5:16pm[place] [address] Discharge Summary Signed with Addenda Patient: Yoel Tamayo MR#: [id number] : 1985 Acct:[id number] Age/Sex: 37 / M Adm Date: 3 [...] History of PCI LAD with prior anterior VA 3. Residual RCA disease 4. Stage IV/V chronic kidney disease 6. Type 1 diabetes mellitus 7. Successful PCI proximal/mid LAD x2 JUAN C Summary Hospital Course Hospital course: 37-year-old gentleman with severe coronary artery disease and type 1 diabetes mellitus status post anterior VA with revascularization of the LAD and residual [...] stent occurs in the first 2-3 weeks afterimplantation, you will need to take anticoagulants for [...] doctor or pharmacist, without first calling the chain testing machine operator who implanted the stent. If you [...] weight lifting, stair steppers, etc. until the chain testing machine operator approves these activities. Check with the chain testing machine operator on your first follow-up visit. CALL YOUR PHYSICIAN at [phone]: -If bleeding should occur from the catheter insertion site- apply pressure to the site then immediately call us. -Report any fever, redness, drainage, increased swelling, or firmness at the catheter insertion site. Some bruising or slight swelling may be present at thetime of discharge. -Should arm or leg become cold, numb, white, or blue, contact the chain testing machine operator immediately. -IF you should experience episodes of angina, e.g. chest discomfort, heaviness, tightness, pressureburning with or without radiation to the neck, jaw, arms or back- use 1 Nitrostat tablet under yourtongue every 5-10 minutes and up to three tablets. IF NO RELIEF, CALL 911 or GO TO THE NEAREST EMERGENCY ROOM. -Please notify our office if you have recurrent angina. -[Cardiac Rehab Education Provided. Participation in the Cardiopulmonary Rehabilitation program is recommended. Please call Central Scheduling at [phone] to schedule your appointment.] The attending chain testing machine operator or [facility] nurse clinician should provide you with specific instructions regarding activity, diet, medications, and further follow up for you. Follow the medication instructions provided on your discharge. If the dosages and instructions on this sheet differ from the dosage and instructions on the bottle, follow the instructions on the bottle. [facility] is not responsible for incorrect prescription [...] <Electronically signed by Denilson Gomez DO> 02/04/231717 [facility] Work Phone: 1(445) 734-795606-19-2023 [facility]* Encounter Date Diagnosis Assessment [...] and when needed. He is pleased with hisoutcome and care. [employer] Other 04-25-2023 [facility]* Encounter Date Diagnosis Assessment Notes Treatment Notes Treatment Clinical Notes Nov, Anemia in chronic kidney disease (ICD-10 - D63.1) Nov,hronic kidney disease, stage 5 (ICD-10 - N18.5) [employer] Other 04-12-2023 Evaluation note* Encounter Date Diagnosis [...] Aguilar and Dr. Mendoza's absence and he recommendsscheduling him for fistulogram to ensure the fistula is ready for use. The patient is not currentlyin need of hemodialysis and following closely with nephrology for periodic monitoring of his renal function which patient tells me continues to deteriorate. He is feeling much more tired and worn outlately with reports of more kidney pain . We will get him scheduled in the near future for intervention. [employer] Other 04-03-2023 Evaluation note* Encounter Date Diagnosis Assessment Notes Treatment Notes Treatment Clinical Notes Nov, Chronic kidney disease, stage 5 (ICD-10 - N18.5) He has a CKD due to the DM and HTN. His serum creatinine 4.9 mg/dL. His renal function has declinedeither due to the progression of his CKD [...] he has serum symptoms including persistent nausea vomitingthen call office to initiate hemodialysis. Nov,en hy kid w cr kid I-IV (ICD-10 - I12.9)Blood pressure is well controlled and he appears to be euvolemic. Advised him fluid restriction.Cont inue 40 mg daily. Continue current diabetes medication including losartan and carvedilol. I have advised him to monitor his blood pressure at home and call office if stays above 140/90 mmHg. If Bp stays high then will aid amlodipine. Nov,Hyperkalemia (ICD-10 - E87.5)He had hyperkalemia due to the advanced CKD and losartan. He was prescribed Lokelma and Losartan was stopped . We will repeat the renal function today. He was also educated about low potassium diet. Nov,nemia of renal disease (ICD-10 - D63.1)Hemoglobin is below the goal and has adequate iron stores. We will start Retacrit to keep hemoglobin 10 to 11 g/dL once improve by insurance Nov,Secondary hyperparathyroidism (ICD-10 - N25.81)He has a secondary hyperparathyroidism due to the vitamin D deficiency.and Hyperphosphatemia. Continue oral ergocalciferol. Continue oral Tums with each meal. Advising low phosphorus diet and provideinformation about him. Nov,roteinuria (ICD-10 - R80.9)He has a proteinuria likely nephrotic range with the diabetic nephropathy. He had an mild elevated serum free light chain ratio likely due to the CKD. He has a monoclonal protein and was seen by hematology. He had a bone marrow biopsy Showed no Evidence of Myeloma or Amyloidosis. He has normal complement C3 and C4, MARYAM and ANCA serologies. Nov,iabetes mellitus with chronic kidney disease (ICD-10 - E11.22)He has insulin-dependent type 2 diabetes mellitus. Continue to follow PCP for DM management. He wastaken off of the losartan due to the advanced CKD. [employer] Other 03-27-2023 Evaluation note* Encounter Date Diagnosis Assessment Notes Treatment Notes Treatment Clinical Notes Oct, Primary hypertension (ICD-10 - I 10) [employer] Other 03-07-2023 Evaluation note* Encounter Date Diagnosis Assessment Notes Treatment Notes Treatment Clinical Notes Oct, Type 1 diabetes mellitus with hy perglycemia (ICD-10 - E10.65) [employer] Other 02-28-2023 Evaluation note* Encounter Date Diagnosis [...] C3 and C4, MARYAM and ANCA serologies. Sep,hronic kidney disease, stage 5 (ICD-10 - N18.5)He has a CKD due to the DM [...] he has serum symptoms including persistent nausea vomitingthen call office to initiate hemodialysis. Sep,en hy kid w cr kid I-IV (ICD-10 - I12.9)Blood pressure is well controlled and he appears to be euvolemic. Advised him fluid restriction.Cont inue 40 mg daily. Continue current diabetes medication including losartan and carvedilol. I have advised him to monitor his blood pressure at home and call office if stays above 140/90 mmHg. If Bp stays high then will aid amlodipine. Sep,nemia of renal disease (ICD-10 - D63.1)Hemoglobin is below the goal and has adequate iron stores. We will continue Retacrit to keep hemoglobin 10 to 11 g/dL once improve by insurance Sep,Secondary hyperparathyroidism (ICD-10 - N25.81)He has a secondary hyperparathyroidism due to the vitamin D deficiency.and Hyperphosphatemia. Continue oral ergocalciferol. I have prescribed oral Tums with each meal. Advising low phosphorus diet and provide information about him. Sep,iabetes mellitus with chronic kidney disease (ICD-10 - E11.22)He has insulin-dependent type 2 diabetes mellitus. Continue to log PCP for DM management. Continue losartan for renal protection. [employer] Other 02-22-2023 Evaluation note* Encounter Date Diagnosis [...] meantime with any issues or concerns whatsoever. [employer] Other 02-20-2023 Evaluation note* Encounter Date Diagnosis Assessment Notes Treatment Notes Treatment Clinical Notes Sep, Type 1 diabetes mellitus with hy perglycemia (ICD-10 - E10.65) This patient is following [...] to monitor closely w/ CGM f/u Endocrine Sep,SHD (arteriosclerotic heart disease) (ICD-10 - I25.10)This patient is stable without activity related CP, dyspnea or lightheadedness. They are instructedto continue exercise and AHA diet plan. Sep,Stage 5 chronic kidney disease not on chronic dialysis (ICD-10 - N18.5)The patient is instructed on adequate control of hypertension and diabetes, if appropriate. They are also educated on the associated risks of NSAIDs and PPI use with kidney disease. They were instructed on adequate fluid balance and to avoid dehydration. f/u Nephrology Sep,iabetic nephropathy associated with type 1 diabetes mellitus (ICD- 10 - E10.21) Sep,rimary hypertension (ICD-10 - I10)This patient is instructed to consume a healthy, low-fat, low-salt diet. They are also encouraged to continue exercise to achieve/maintain a normal BMI. Comply w/ treatment, f/u Cardiology Sep,igarette nicotine dependence without complication (ICD-10 - F17.210)Smoking cessation discussed. This patient has been encouraged to quit tobacco use immediately. They are aware of the hazards associated with tobacco use, including but not limited to respiratory infections, vascular disease and cancers. Sep,AD (generalized anxiety disorder) (ICD-10 - F41.1)Healthy diet, exercise, keep active Sep,nemia in chronic kidney disease (ICD-10 - D63.1) [employer] Other 02-15-2023 Progress note Author Ross Catherine [facility] October 03, 2022 2:51pmNote Date/TimeFebruary 2022 2:48[place] [address] Hospitalist Progress Note Signed Patient: Yoel Tamayo MR#: [id number] : 1985 Acct:[id number] Age/Sex: 37 / M Adm Date: 3 Loc: Room: [address] [place] [address] Type: ADM INOo Attending Dr: Ross Catherine [...] 81 Mg Tab.Chew PO 10/04/23 08:59 QAM [facility] Atorvastatin Calcium 80 mg 10/03/22 21:00 Atorvastatin 80 Mg Tablet PO 10/03/23 20:59 QPM [facility] Carvedilol 12.5 mg 10/03/22 17:00 Carvedilol 12.5 Mg Tablet PO 10/03/23 16:59 BID.WITH.MEALS [facility] Clopidogrel Bisulfate 75 mg 10/04/22 09:00 Clopidogrel Bisulfate 75 Mg Tablet PO 10/04/23 08:59 QAM [facility] Ergocalciferol 1,250 mcg 10/10/22 09:00 Ergocalciferol 1,250 Mcg (50,000 Units) Capsule PO 10/10/23 08:59 We@0900 [facility] Escitalopram Oxalate 10 mg 10/03/22 22:00 Escitalopram 10 Mg Tablet PO 10/03/23 21:59 QHS [facility] Famotidine 40 mg 10/03/22 22:00 Famotidine 20 Mg Tablet PO 10/03/23 21:59 QHS [facility] Furosemide 40 mg 10/04/22 09:00 Furosemide 40 Mg Tablet PO 10/04/23 08:59 QAM [facility] Hydralazine HCl 50 mg 10/03/22 22:00 Hydralazine 50 Mg Tablet PO 10/03/23 21:59 TID [facility] Insulin Glargine 12 units 10/04/22 09:00 Insulin Glargine 300 Units/3 Ml Insuln.Pen SUBCUT 10/04/23 08:59 QAM [facility] Insulin Human Lispro unit 10/03/22 14:45 Insulin Lispro (Rashard/Ed Only) 300 Unit/3 Ml Vial SUBCUT 10/03/23 14:44 USEASDIRECTD [facility] Isosorbide Mononitrate 30 mg 10/03/22 22:00 Isosorbide Mononitrate 24hr Er 30 Mg Tab.Er.24h PO 10/03/23 21:59 QHS [facility] Nitroglycerin 0.4 mg 10/03/22 14:31 Nitroglycerin 0.4 Mg Tab.Subl SUBLINGUAL 10/03/23 14:30 Q5MIN.X3 PRN Chest Pain Pantoprazole Sodium 40 mg 10/04/22 09:00 Pantoprazole 40 Mg Tablet.Dr SHELLEY 10/04/23 08:59 QAM RACHELL Sodium Chloride 0 [...] maturation. Electrolytes within normal limits. No hypoxia. Hedescribes some nausea he attributes to uremia. 3. Anemia Presumably due to ESRD. Remains stable. 4. Nicotine abuse We will provide nicotine patch. 5. Insulin-dependent diabetes mellitus Continue home insulin regimen. ACHS Accu-Cheks. The patient is pain-free, he will be discharged home if cleared by cardiology Documented By: Ross Catherine MD 10/03/22 1445 Signed By: <Electronically signed by Ross Catherine MD> 10/03/22 1451 [facility] Work Phone: 1(121) 336-164402-15-2023 History and physical note Author Reina Renae [facility] October 03, 2022 4:54amNote Date/TimeFebruary 2022 4:38[place] [address] Hospitalist H&P Signed Patient: Yoel Tamayo MR#: [id number] : 1985 Acct:[id number] Age/Sex: 37 / M Adm Date: 3 Loc: 4 Room: 8W0163-3 Type: ADM IN Attending Dr: Reina Renae DO Copies to: DO Reina Leblanc DO~ HPI DATE OF EXAMINATION: 10/03/22 CHIEF COMPLAINT: Chest pain HISTORY OF PRESENT ILLNESS: Patient is a 37-year-old male with a history of CAD status post PCI to the LAD [facility] with an acute onset of chest [...] revealed temperature 97.8 ?F, heart rate of 79,respirations 18/min, blood pressure 188/89, 99% on room air. CBC reveals anemiaof chronic kidney dis ease with an H&H of 8.3/23.8%. Chemistries reveal sodium of 135, BUN/creatinine 54/4.16. INR is1.0. High-sensitivity troponin is 18x2. EKG is reportedly dynamic in its appearance on serial readings. He was provided 324 mg of aspirin and a nitroglycerin transdermal patch. He was admitted to theprogressive unit for further evaluation and cardiology consultation. [...] maturation. Electrolytes within normal limits. No hypoxia. Hedescribes some nausea he attributes to uremia. 3. Anemia Presumably due to ESRD. Remains stable. 4. Nicotine abuse We will provide nicotine patch. 5. Insulin-dependent diabetes mellitus Continue home insulin regimen. [facility] Accu-Cheks. Review of Systems Review of Systems [...] 10/02/22 23:35 MCH 30.4 pg (27.5-35.2) 10/02/22 23: MCHC 34.9 g/dL (32.5-35.6) 10/02/22 23: RDW 13.2 % (12.0-14.8) 10/02/22 23:35 Plt Count 185 x10E3/uL (150-450) 10/02/22 23: MPV 8.2 fl (6.6-10.1) 10/02/22 23: Neut % (Auto) 70.2 % (.) 10/02/22 23:35 Lymph % (Auto) 19.9 % (.) 10/02/22 23: [place] % (Auto) 5.5 % (.) 10/02/22 23: Eos % (Auto) 2.7 % (.) 10/02/22 23: Baso % (Auto) 1.7 % (.) 10/02/22 23: Nucleat RBC Rel Count 0.0 /100 WBC (0-0.5) 10/02/22 23: Neut # (Auto) 5.1 x10E3/uL (1.8-7.7) 10/02/22 23:35 Lymph # (Auto) 1.4 x10E3/uL (1.00-4.8) 10/02/22 23:35 [place] # (Auto) 0.4 x10E3/uL (0.0-0.8) 10/02/22 23:35 Eos # (Auto) 0.2 x10E3/uL (0.0-0.45) 10/02/22 23: Baso # (Auto) 0.1 x10E3/uL (0.0-0.2) 10/02/22 23: Monocyte Dist Width 14.39 % (0.00-20.00) 10/02/22 23: PT 12.1 Seconds (9.0-12.9) 10/02/22 23: INR 1.0 10/02/22 23:35 APTT 37.1 Seconds (25.1-36.5) H 10/03/22 01:39 PHA Creatinine Clear 25.83 10/02/22 23: Sodium 135 mmol/L (136-146) L 10/02/22 23:35 [...] signed by Reina Renae DO> 10/03/22 0454 [facility] Work Phone: 1(833) 925-319901-30-2023 [facility] Progress note Author Haydee Lira [facility] September 12, 2022 3:35pmNote Date/TimeJanuary 2022 5:14pm[facility] at [address] [address] Hem/Onc Follow Up Note - OP Signed Patient: Yoel Tamayo MR#: [id number] : 1985 Acct:[id number] Age/Sex: 37 / M Type: REG RCR Copies to: MD Eusebio Castellano,~ Subjective Date/Time of Service: Date of Service: [...] history of asthma, hives, eczema or rhinitis. REPLACED BY [facility] - Medical History Medical History: Medical History [...] IgM 189 H, Serum Immunofixation Comment:, Free Webster LC, Quant 128.0 H, Free Lambda LC, Quant 77.5 H, Free Webster/Lambda Ratio 1.65 Assessment and Plan (1) MGUS [...] red on the core and the aspirate. Itis expected to be negative given the description but it should be done as completeness. Once I havethe results I will call the patient and [...] just observe. Otherwise if it shows progression oreven if there is earlier worsening related to the kidney function would consider a kidney biopsy. She also asked me about smoldering myeloma and I told her definitely this is not the case after explaining to her the definition of this entity Although skeletal survey was the one ordered but a normal bone density is even a good imaging studyto support the negativity and benign nature so far of his MGUS 09/10/2022 Yoel is here for interval 3 month follow up with repeat labs. His kappa/lambda light chains remain elevated - but overall stable. K:L ratio is 1.65. SPEP with no evidence of M-spike. Serum immunofixation consistently reads as undetermined presence of monoclonal protein with no previous history of M- spike. His IGM is elevated at 189; this has actually improved since last visit. Renal function is poor but stable; but patient reports he will be having AV fistula access placed next weekin anticipation of kidney dialysis in the future. [...] for coordination of care (as documented) and [id number] counseling of patient and/or family. Dictated By: Haydee Lira APRN DD/ 170 Signed By: <Electronically signed by JOSH Lira> 09/12/22 1532 [facility] Work Phone: 1(915) 603-448601-18-2023 Evaluation note* Encounter Date Diagnosis Assessment Notes [...] we will schedule this in near future. [employer] Other 01-12-2023 Evaluation note* Encounter Date Diagnosis [...] C3 and C4, MARYAM and ANCA serologies. Aug,KD (chronic kidney disease) stage 4, GFR 15-29 ml/min (ICD-10 - N18.4)He has a CKD due to the DM and HTN. His serum creatinine 3.5 mg/dL. His renal function has declinedeither due to the progression of his CKD in the setting of uncontrolled DM or maybe hemodynamic changes. I discussed with the importance of good DM and HTN control instructed on the progression of CKD. I explained to potential need of [employer] in near future. I discussed with him different option of RRTincluding PD, transplant, HD. He attended the kidney smart classes. He is interested in HD so I have referred him to Vascular surgery. 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 Advised him fluid restriction.Cont inue 40 mg daily. Continue current diabetes medication including losartan and carvedilol. I have advised him to monitor his blood pressure at home and call office if stays above 140/90 mmHg. If Bp stays high then will aid amlodipine. Aug,nemia of renal disease (ICD-10 - D63.1)Hemoglobin is 10 g/dL and has adequate iron stores. We will continue Retacrit to keep hemoglobin 10to 11 g/dL. Aug,Secondary hyperparathyroidism (ICD-10 - N25.81)He has a secondary hyperparathyroidism due to the vitamin D deficiency.and CKD. Continue oral ergocalciferol. Aug,iabetes mellitus with chronic kidney disease (ICD-10 - E11.22)He has insulin-dependent type 2 diabetes mellitus. Continue to log PCP for DM management. Continue losartan for renal protection. [employer] Other 01-11-2023 Hospital Discharge instructions Patient Education [...] Follow these instructions at home: Medicines Take rjtz-pps-[id number] and prescription medicines only as told by [...] 08/02/2001 Document Revised: 07/18/2018 Document Reviewed: 08/21/2017 [employer] Patient Education 2020 [employer]. Follow Up Care 07/16/2022 11:13:53 With:TRUONG MOLINA, Mickey Tovar, URL Address: [facility] [address], [place] [address]- When: Unknown [facility] 12-26-2022 Consult note Author Nancy Haas [facility] August 13, 2022 1:06pmNote Date/TimeDecember 2021 1:[address] [address] Nephrology Consult Note Signed Patient: Yoel Tamayo MR#: [id number] : 1985 Acct:[id number] Age/Sex: 37 / M Adm Date: 2 Loc: Room: [address] [place] [address] Type: ADM INOo Attending Dr: Law Cano MD Copies to: MD Eusebio Tao DO Marwan Wassouf, MD~ Providers Consult Date: 08/13/22 Requesting Provider: Law Cano MD Primary Care Provider: Eusebio Olivares DO [facility] Reason for Consult: Acute kidney injury on chronic kidney disease History of Present Illness: This is a 37-year-old male patient with past medical history of insulin- dependent diabetes mellitus, hypertension, hyperlipidemia, chronic kidney disease stage IV with baseline creatinine around 3.2 to 3.4 mg deciliter, history of non-ST VA status post stent placement. Patient brought in to the hosp ital for sudden onset of chest pain and syncope while he was urinating at home. Patient was a little drowsy when he arrived but this resolved. Patient stated his chest pain is similar to when he had acute VA. Patient also reportedsome shortness of breath. Blood pressure was elevated at admission. Vital signs has been stable. Patient has been on Lasix 40 mg p.o. daily at home whichwas increased to80 mg twice daily while inpatient for concern of CHF. Troponincame back slightly positive. Last blood pressure readings was 107/67. Patient feels better but he still have some chest pain located overthe left side of hischest. He has no legs edema Reviewed the patient medication. Currently on isosorbide mononitrate 30 mg p.o.daily, hydralazine 50 mg 3 times daily Coreg 12 mg twice daily. He also has been on Epogen for anemia 20,000 q. monthly.Patient also on Plavix and aspirin Serum creatinine [...] DAILY RACHELL Stop: 08/13/23 08:59 Last Admin: 12/26/22 08:22 Dose: 81 mg Atorvastatin Calcium (Atorvastatin [...] Units/3 Ml Insuln.Pen) 0 units SUBCUT TID.WM.HS [facility]; Protocol Stop: 08/13/23 07:59 Last Admin: 08/13/22 11:13 Dose: 3 units Insulin Glargine (Insulin Glargine 300 Units/3 Ml Insuln.Pen) 12 units SUBCUT DAILY [facility] Stop: 08/13/23 08:59 Last Admin: 08/13/22 09:07 Dose: 12 units Isosorbide Mononitrate (Isosorbide Mononitrate 24hr Er 30 Mg Tab.Er.24h) 30 mg PO DAILY [facility] Stop: 08/13/23 08:59 Last Admin: 08/13/22 08:22 Dose: 30 mg Nitroglycerin (Nitroglycerin 0.4 Mg Tab.Subl) 0.4 mg SUBLINGUAL Q5MIN.X3 PRN PRN Reason: Chest Pain Stop: 08/13/23 04:50 Non-Formulary Medication (Epoetin Alexus-Epbx [Retacrit]) 20,000 unit SUBCUT QMONTH [facility] Stop: 08/13/23 04:59 Omeprazole (Omeprazole 20 Mg Capsule.Dr) 40 mg PO DAILY [facility] Stop: 08/13/23 08:59 Last Admin: 08/13/22 08:22 [...] Appearance Clear Urine pH 5.5 Ur Specific [place] 1.011 Urine Protein 300 H Urine Glucose (UA) 250 H Urine Ketones Negative Urine Occult Blood 1+ H Urine Nitrite Negative Ur Leukocyte Esterase Negative Urine RBC 10-19 H Urine WBC 1-2 Urine Bacteria None seen Radiology Impressions Impressions - last 24 hours: Impressions Head CT 08/12/22 23:07 IMPRESSION: No acute intracranial findings. Impression dictated by: Alec Flynn M.D.08/13/2022 11:25 AM Dictation Location: [place] [address] Chest X-Ray 08/13/22 04:55 IMPRESSION: No acute process. Impression dictated by: Alec Flynn M.D.08/13/2022 8:22 AM Dictation Location: [place] [address] Any impression(s) listed above is documentation that was entered by the reading physician into a diagnostic report(s) for Yoel Tamayo. I have reviewed the report(s) and am [...] Patient nonoliguric. At risk for worsening kidney functiondue to blood pressure fluctuating. -There is no need for renal placement therapy. -I will switch Lasix back to oral home dose. I doubt the patient has CHF. Patient has no peripheraledema chest x-ray is clear -Continue current blood [...] concern. Documented By: Nancy Haas MD 08/13/22 0587 Signed By: <Electronically signed by Nancy Haas MD> 08/13/22 1308 [facility] Work Phone: 1(408) 530-315112-26-2022 History and physical note Author Isidoro Mesa [facility] August 13, 2022 4:55amNote Date/TimeDecember 2021 4:18[place] [address] Hospitalist H&P Signed Patient: Yoel Tamayo MR#: [id number] : 1985 Acct:[id number] Age/Sex: 37 / M Adm Date: 2 Loc: Room: [address] [place] [address] Type: ADM INOo Attending Dr: Isidoro Mesa DO Copies to: DO Isidoro Leblanc, DO~ HPI DATE OF EXAMINATION: 08/13/22 CHIEF COMPLAINT: syncope HISTORY OF PRESENT ILLNESS: Mr Tamayo is a 37-year-old male with past medical history of insulin- dependent diabetes, hypertension, hyperlipidemia, CKD, tobacco use, NSTEMI status post stenting to the proximal to mid LAD in November presents to hospital today with chief complaint of chest pain and syncope at home. Most of the h istory will be taken from the chart, upon arrival to the floor in my assessment, the patient was quite drowsy and was very short of answers if even acknowledged the question at all. Per the ED report, the patient was using the restroom and had chest pain when he stood up he states he passed out. Hedoes believe he hit his head, however upon my assessment in the room he denies any head pain. He coughlin s not answer if he had any visual [...] % (Auto) 29.2 % (.) 08/12/22 23:58 [place] % (Auto) 8.9 % (.) 08/12/22 23:58 Eos % (Auto) 2.7 % (.) 08/12/22 23:58 Baso % (Auto) 1.5 % (.) 08/12/22 23:58 Nucleat RBC Rel Count 0.1 /100 WBC (0-0.5) 08/12/22 23:58 Neut # (Auto) 3.1 x10E3/uL (1.8-7.7) 08/12/22 23:58 Lymph # (Auto) 1.6 x10E3/uL (1.00-4.8) 08/12/22 23:58 [place] # (Auto) 0.5 x10E3/uL (0.0-0.8) 08/12/22 23:58 [...] pH 5.5 (5.0-9.0) 08/13/22 00:49 Ur Specific [place] 1.011 (1.001-1.030) 08/13/22 00:49 Urine Protein 300 [...] Signed By: <Electronically signed by Isidoro Mesa, > 08/13/22 0454 [facility] Work Phone: 1(220) 881-277912-15-2022 Miscellaneous Notes* Telephone Encounter - Naun Willis - 08/02/2022 10:39 AM EST Returned call to patient regarding kidney transplant, he is currently smoking cigarettes about 1/2 pack per day. Advised patient once he is nicotine free for 30-days to contact our office. Closing referral at this time and patient verbalized understanding. [facility] Willis [facility]* Encounter Date Diagnosis Assessment [...] has normal complement C3 and C4, MARYAM andANCA serologies. Jun,KD (chronic kidney disease) stage 4, GFR 15-29 ml/min (ICD-10 - N18.4)He has a CKD due to the DM and HTN. His serum creatinine 3.2 mg/dL. His renal function has declinedeither due to the progression of his CKD in the setting of uncontrolled DM or maybe hemodynamic changes. I discussed with the importance of good DM and HTN control instructed on the progression of CKD. I explained to potential need of KENNEL MANAGER DOG TRACK in near future. I discussed with him different option of RRTincluding PD, transplant, HD. I referred him to the kidney smart classes. Jun,en hy kid w cr kid I-IV (ICD-10 - I12.9)Blood pressure is high today but usually well controlled and he appears to be euvolemic. Advised him fluid restriction.Continue 40 mg daily. Continue current diabetes medication including losartan and carvedilol. I have advised him to monitor his blood pressure at home and call office if stays above 140/90 mmHg. If Bp stays high then will aid amlodipine. Jun,nemia of renal disease (ICD-10 - D63.1)Hemoglobin is 11. We will hold the Retacrit. Jun,econdary hyperparathyroidism (ICD-10 - N25.81)He has a secondary hyperparathyroidism due to the vitamin D deficiency.and CKD. Continue oral ergocalciferol. Jun,iabetes mellitus with chronic kidney disease (ICD-10 - E11.22)He has insulin-dependent type 2 diabetes mellitus. Continue to log PCP for DM management. Continue losartan for renal protection. [employer] Other 10-11-2022 Progress note Author Jorje Small [facility] May 29, 2022 4:50pmNote Date/TimeOct2021 4:42pmAv[facility] at [address] [address] Hem/Onc Follow Up Note - OP Signed Patient: Yoel Tamayo MR#: [id number] : 1985 Acct:[id number] Age/Sex: 37 / M Type: REG RCR [...] history of asthma, hives, eczema or rhinitis. REPLACED BY [facility] - Medical History Medical History: Medical History [...] done. I talked to the pathologist Dr. Thomason who very kindly discussed the case and stated that she will ask the pathologist who had there isbone marrow to add the [place] red on the core and the aspirate. It is expected to be negative given the description but it should be done as completeness. Once I have the results I will callthe patient and . asked me about the [...] just observe. Otherwise if it shows progression oreven if there is earlier worsening related to the kidney function would consider a kidney biopsy. She also asked me about smoldering myeloma and I told her definitely this is not the case after explaining to her the definition of this entity Although skeletal survey was the one ordered but a normal bone density is even a good imaging studyto support the negativity and benign nature so far of his MGUS - Time with Patient Coordination of Care & Counseling Time: Greater than 50% of time spent with patient was for coordination of care (as documented) and [id number]-[id number] counseling of patient and/or family. Dictated By: Jorje Small MD DD/ 164 Signed By: <Electronically signed by Jorje Small MD> 05/29/22 1650 [facility] Work Phone: 1(267) 385-773810-05-2022 Evaluation note* Encounter Date Diagnosis Assessment Notes [...] has normal complement C3 and C4, MARYAM andANCA serologies. May,hronic kidney disease, stage III (moderate) (ICD-10 - N18.30)He has a CKD due to the DM and HTN. His serum creatinine 3.2 mg/dL. His renal function has declinedeither due to the progression of his CKD in the setting of uncontrolled DM or maybe hemodynamic changes. I discussed with the importance of good DM and HTN control instructed on the progression of CKD. I explained to potential need of KENNEL MANAGER DOG TRACK in near future. I discussed with him different option of RRTincluding PD, transplant, HD. I referred him to the kidney smart classes. May,en hy kid w cr kid I-IV (ICD-10 - I12.9)Blood pressure is high today but usually well controlled and he appears to be euvolemic. Advised him fluid restriction.Continue 40 mg daily. Continue current diabetes medication including losartan and carvedilol. I have advised him to monitor his blood pressure at home and call office if stays above 140/90 mmHg. If Bp stays high then will aid amlodipine. May,nemia of renal disease (ICD-10 - D63.1)Hemoglobin is 11. We will hold the Retacrit. May,econdary hyperparathyroidism (ICD-10 - N25.81)He has a secondary hyperparathyroidism due to the vitamin D deficiency.and CKD. Continue oral ergocalciferol. May,iabetes mellitus with chronic kidney disease (ICD-10 - E11.22)He has insulin-dependent type 2 diabetes mellitus. Continue to log PCP for DM management. Continue losartan for renal protection. [employer] Other 09-21-2022 Consult note Author Jorje [facility] May 09, 2022 3:02pmNote Date/TimeSept2021 2:53pmLubbock [facility] [place] [address] Hem/Onc Consult Note - OP Signed Patient: Yoel Tamayo MR#: [id number] : 1985 Acct:[id number] Age/Sex: 37 / M Type: REG RCR Copies to: MD Eusebio Castellano DO~ HPI Date/Time of Service: Date of Service: 05/09/2022 Time of Service: 14:53 Referring Provider/PCP: Referring Provider: Angel Cook MD PCP: Eusebio Olivares DO - History of Present Illness Reason for Consultation: MGUS Chief Complaint: Patient is here for a referral from Dr Cook for monocolonal protein. HPI: Patient is a 37-year-old white gentleman who is here with his for evaluation and management ofan MGUS. 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 We willschedule him for bone marrow biopsy with [place] red stain as well as skeletal survey. We prefer not to take him off Plavix since the stent was placed around September 2021 and proceed with a bone marrow biopsy with good pressure and ice packing following the procedure. However we will check with inter ventional radiology about that. We will also check with his interventionalcardiologist Dr. Gomez to ensure safety and stability - Time with Patient Coordination of Care & Counseling Time: Greater than 50% of time spent with patient was for coordination of care (as documented) and keex-ec-vrkl counseling of patient and/or family. Dictated By: Jorje Small MD DD/ 1459 Signed By: <Electronically signed by Jorje Small MD> 05/09/22 1502 [facility] Work Phone: 1(553) 624-628909-02-2022 Evaluation note* Encounter Date Diagnosis Assessment Notes Treatment Notes Treatment Clinical Notes Apr, Anemia of renal disease (ICD-10 - D63.1) Apr,hronic kidney disease, stage III (moderate) (ICD-10 - N18.30) [employer] Other 08-17-2022 Evaluation note* Encounter Date Diagnosis Assessment Notes Treatment Notes Treatment Clinical Notes Mar, Secondary hyperparathyroidism (I CD-10 - N25.81) [employer] Other 08-11-2022 Evaluation note* Encounter Date Diagnosis [...] explained to him due to the recent VA and dual antiplatelet therapy biopsy will be high risk so we will not pursue it. Mar,hronic kidney disease, stage III (moderate) (ICD-10 - N18.30)He has a CKD due to the DM and HTN. His serum creatinine is 3.0 mg/dL above his baseline 2.0 mg/dL.His renal function has declined either due to the progression of his CKD in the setting of uncontrolled DM or maybe hemodynamic changes. I discussed with the importance of good DM and HTN control instructed on the progression of CKD. I explained to potential need of KENNEL MANAGER DOG TRACK in near future. I discussed with him different option of KENNEL MANAGER DOG TRACK including PD, transplant, HD. Mar,en hy kid w cr kid I-IV (ICD-10 - I12.9)Blood pressure is high and he appears to [...] Bp stays high then will aid amlodipine. Mar,nemia of renal disease (ICD-10 - D63.1)Hemoglobin was below the goal but has adequate iron stores. Is a protective order was approved by the insurance but was not given today due to his uncontrolled hypertension. He reported that he was all stressed out due to the abnormal labs and worries for possible cancer. He also has gained 13 pounds. Mar,econdary hyperparathyroidism (ICD-10 - N25.81)He has a secondary hyperparathyroidism due to the vitamin D deficiency.and CKD. Continue oral ergocalciferol. Mar,iabetes mellitus with chronic kidney disease (ICD-10 - E11.22)He has insulin-dependent type 2 diabetes mellitus. Continue to log PCP for DM management. Continue losartan for renal protection. [employer] Other 05-03-2022 Evaluation note* Encounter Date Diagnosis Assessment Notes Treatment Notes Treatment Clinical Notes December, Proteinuria (ICD-10 - R80.9) He has a proteinuria likely nephrotic range with the diabetic nephropathy. He has 24-hour urinary free light chain ratio and inconclusive serum and urine with a suggestion. He has a normal complementC3 and C4, MARYAM and ANCA serologies. December,hronic kidney disease, stage III (moderate) (ICD-10 - N18.30)He has a CKD due to the DM and HTN. Baseline serum creatinine is 1.4 to 1.8 mg/dL. I discussed withthe importance of good DM and HTN control instructed on the progression of CKD. December,en hy kid w cr kid I-IV (ICD-10 - I12.9)Blood pressure is high and he appears to be hypervolemic. Advised him fluid restriction. Continue current diabetes medication including losartan and carvedilol. December,nemia of renal disease (ICD-10 - D63.1)Hemoglobin was below the goal he had iron deficiency. We will repeat the CBC and iron studies. December,econdary hyperparathyroidism (ICD-10 - N25.81)Calcium within normal limit. We will check PTH and vitamin D. December,2Diabetes mellitus with chronic kidney disease (ICD-10 - E11.22)He has insulin-dependent type 2 diabetes mellitus. Continue to log PCP for DM management. Continue losartan for renal protection. [employer] Other 03-23-2022 Evaluation note* Encounter Date Diagnosis Assessment Notes Treatment Notes Treatment Clinical Notes Oct, Proteinuria (ICD-10 - R80.9) He has a proteinuria likely nephrotic range with the diabetic nephropathy. Other differential diagnoses are paraproteinemia, hepatitis MPGN, primary FSGS, membranous nephropathy or minimal-change disease. I discussed with him the option of a kidney biopsy for definitive diagnosis. He agrees for it.I have ordered a renal ultrasound cardiorenal kidney biopsy. Oct,Nephrotic syndrome (ICD-10 - N04.9) He has hypoalbuminemia, proteinuria and anasarca likely due to the secondary nephrotic syndrome related to diabetic nephropathy. I have advised him to limit her fluid intake to 50 ounces a day and increase the torsemide 60 mg daily. Oct,en hy kid w cr kid I-IV (ICD-10 - I12.9) Blood pressure is high and he appears to be hypervolemic. Increase torsemide continue current diabetes medication including amlodipine, losartan and carvedilol. Oct,nemia of renal disease (ICD-10 - D63.1) Hemoglobin is below the goal. Will check iron studies. Oct,hronic kidney disease, stage III (moderate) (ICD-10 - N18.30) He has a CKD due to the DM and HTN. Baseline serum creatinine is 1.4 to 1.8 mg/dL. I discussed withthe importance of good DM and HTN control instructed on the progression of CKD. Oct,econdary hyperparathyroidism (ICD-10 - N25.81) Calcium within normal limit. We will check PTH and vitamin D. Oct,iabetes mellitus with chronic kidney disease (ICD-10 - E11.22) He has insulin-dependent type 2 diabetes mellitus. Continue to log PCP for DM management. Continue losartan for renal protection. [employer] Other 02-14-2022 NoteHNO ID: [id number] Author: Zita Gilmore MD Service: ? Author Type: Physician Type: [...] monitor PDR OU -sees Dr. [facility] -s/p Avastin OU last 09/08/21 -s/p PPV/SO/scleral buckle(unsure if buckle,not visible on exam) 09/18/21 I, Zita Gilmore MD, have confirmed and edited as necessary the relevant ophthalmic history, ROS, and the neuro exam findings as obtained by others. I have seen and examined Yoel Tamayo. I have discussed the case and the management of this patient's care with the Resident/Fellow, if applicable. I also have reviewed and agree with the assessment and plan as stated above and agree with all of its relevant components. Zita Gilmore MD October 02[facility] note Author Jorje Small [facility] May 09, 2022 3:02pmNote Date/TimeSeptember 2021 2:53[place] [address] Hem/Onc Consult Note - OP Signed Patient: Yoel Tamayo MR#: [id number] : 1985 Acct:[id number] Age/Sex: 37 / M Type: REG RCR Copies to: MD Eusebio Castellano DO~ HPI Date/Time of Service: Date of Service: 05/09/2022 Time of Service: 14:53 Referring Provider/PCP: Referring Provider: Angel Cook MD PCP: Eusebio Olivares DO - History of Present Illness Reason for Consultation: MGUS Chief Complaint: Patient is here for a referral from Dr Cook for monocolonal protein. HPI: Patient is a 37-year-old white gentleman who is here with his for evaluation and management ofan MGUS. 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 We willschedule him for bone marrow biopsy with [place] red stain as well as skeletal survey. We prefer not to take him off Plavix since the stent was placed around September 2021 and proceed with a bone marrow biopsy with good pressure and ice packing following the procedure. However we will check with inter ventional radiology about that. We will also check with his interventionalcardiologist Dr. Gomez to ensure safety and stability - Time with Patient Coordination of Care & Counseling Time: Greater than 50% of time spent with patient was for coordination of care (as documented) and xqxy-wu-nmcn counseling of patient and/or family. Dictated By: Jorje Small MD DD/ 1453 Signed By: <Electronically signed by Jorje Small MD> 05/09/22 1502 [facility] Work Phone: Consult note Author Nancy Haas [facility] August 13, 2022 1:06pmNote Date/TimeDecemb2021 1:01pmByrd[place] [address] Nephrology Consult Note Signed Patient: Yoel Tamayo MR#: [id number] : 1985 Acct:[id number] Age/Sex: 37 / M Adm Date: 2 Loc: Room: [address] [place] [address] Type: ADM INOo Attending Dr: Law Cano MD Copies to: MD Eusebio Tao DO Marwan Wassouf, MD~ Providers Consult Date: 08/13/22 Requesting Provider: Law Cano MD Primary Care Provider: Eusebio Olivares DO [facility] Reason for Consult: Acute kidney injury on chronic kidney disease History of Present Illness: This is a 37-year-old male patient with past medical history of insulin- dependent diabetes mellitus, hypertension, hyperlipidemia, chronic kidney disease stage IV with baseline creatinine around 3.2 to 3.4 mg deciliter, history of non-ST VA status post stent placement. Patient brought in to the hosp ital for sudden onset of chest pain and syncope while he was urinating at home. Patient was a little drowsy when he arrived but this resolved. Patient stated his chest pain is similar to when he had acute VA. Patient also reportedsome shortness of breath. Blood pressure was elevated at admission. Vital signs has been stable. Patient has been on Lasix 40 mg p.o. daily at home whichwas increased to80 mg twice daily while inpatient for concern of CHF. Troponincame back slightly positive. Last blood pressure readings was 107/67. Patient feels better but he still have some chest pain located overthe left side of hischest. He has no legs edema Reviewed the patient medication. Currently on isosorbide mononitrate 30 mg p.o.daily, hydralazine 50 mg 3 times daily Coreg 12 mg twice daily. He also has been on Epogen for anemia 20,000 q. monthly.Patient also on Plavix and aspirin Serum creatinine [...] Units/3 Ml Insuln.Pen) 0 units SUBCUT TID.WM.HS [facility]; Protocol Stop: 08/13/23 07:59 Last Admin: 08/13/22 11:13 Dose: 3 units Insulin Glargine (Insulin Glargine 300 Units/3 Ml Insuln.Pen) 12 units SUBCUT DAILY [facility] Stop: 08/13/23 08:59 Last Admin: 08/13/22 09:07 Dose: 12 units Isosorbide Mononitrate (Isosorbide Mononitrate 24hr Er 30 Mg Tab.Er.24h) 30 mg PO DAILY [facility] Stop: 08/13/23 08:59 Last Admin: 08/13/22 08:22 Dose: 30 mg Nitroglycerin (Nitroglycerin 0.4 Mg Tab.Subl) 0.4 mg SUBLINGUAL Q5MIN.X3 PRN PRN Reason: Chest Pain Stop: 08/13/23 04:50 Non-Formulary Medication (Epoetin Alexus-Epbx [Retacrit]) 20,000 unit SUBCUT QMONTH [facility] Stop: 08/13/23 04:59 Omeprazole (Omeprazole 20 Mg Capsule.Dr) 40 mg PO DAILY [facility] Stop: 08/13/23 08:59 Last Admin: 08/13/22 08:22 [...] Appearance Clear Urine pH 5.5 Ur Specific [place] 1.011 Urine Protein 300 H Urine Glucose (UA) 250 H Urine Ketones Negative Urine Occult Blood 1+ H Urine Nitrite Negative Ur Leukocyte Esterase Negative Urine RBC 10-19 H Urine WBC 1-2 Urine Bacteria None seen Radiology Impressions Impressions - last 24 hours: Impressions Head CT 08/12/22 23:07 IMPRESSION: No acute intracranial findings. Impression dictated by: Alec Flynn M.D.08/13/2022 11:25 AM Dictation Location: [place] [address] Chest X-Ray 08/13/22 04:55 IMPRESSION: No acute process. Impression dictated by: Alec Flynn M.D.08/13/2022 8:22 AM Dictation Location: [place] [address] Any impression(s) listed above is documentation that was entered by the reading physician into a diagnostic report(s) for Yoel Tamayo. I have reviewed the report(s) and am [...] Patient nonoliguric. At risk for worsening kidney functiondue to blood pressure fluctuating. -There is no need for renal placement therapy. -I will switch Lasix back to oral home dose. I doubt the patient has CHF. Patient has no peripheraledema chest x-ray is clear -Continue current blood [...] concern. Documented By: Nancy Haas MD 08/13/22 9895 Signed By: <Electronically signed by Nancy Haas MD> 08/13/22 1305 [facility] Work Phone: Consult note Author W Jason [facility] October 03, 2022 5:14pmNote Date/TimeFebruary 2022 5:06pmByrd[place] [address] Cardiology Consult Note Signed Patient: Yoel Tamayo MR#: [id number] : 1985 Acct:[id number] Age/Sex: 37 / M Adm Date: 3 Loc: Room: [address] [place] [address] Type: ADM INOo Attending Dr: Ross Catherine MD Copies to: Eusebio Ball,DO Firas Seffo, MD W Rene Jason, DO~ Cardiology HPI History of Present Illness Consult Date: 10/03/22 Reason for Consult: Angina pectoris class III?IV, ASHD, type 1 diabetes HPI: Mr. Tamayo is a 37 year old male seen in interventional cardiology consultation at the request of the hospitalist and patient with recurrent anginapectoris. Patient is well-known to me, he has chronic class II angina generally, and with the new social situations (divorce) along with increased tob acco use, and accelerated hypertension, patient has experienced more regular class III and now class IV angina. He has known diffuse coronary artery disease involving the entire circumflex andRCA vasculature, not amenable to revascularization at least per my last report. In October 2021 he presented with acute non-ST elevation VA, in conjunction with type 1 diabetes and [...] he is unwilling to initiate dialysis at t his time. Notably hemoglobin is low at 8.5 [...] 3 times daily, isosorbide up to60 mg daily,smoking cessation counseling and can follow-up with cardiology [...] Lymph # (Auto) 1.4 1.7 (1.00-4.8) x10E3/uL [place] # (Auto) 0.4 0.3 (0.0-0.8) x10E3/uL Eos [...] Code(s): I25.10 - Atherosclerotic heart disease of [place] coronary artery without angina pectoris (5) Diabetes: Code(s): E11.9 - Type 2 diabetes mellitus without complications Documented By: Denilson Gomez DO 10/03/221702 Signed By: <Electronically signed by Denilson Gomez DO> 10/03/22 7189 [facility] Work Phone: Consult note Author Denilson Gomez [facility] Date/TimeOctober 2024 11:02am [place] [address] Cardiology Consult Note Signed Patient: Yoel Tamayo MR#: [id number] : 1985 Acct:[id number] Age/Sex: 40 / M Adm Date: 5 Loc: Room: [address] [place] [address] Type: ADM INOo Attending Dr: Chung Maria MD Copies to: DO Chung Leblanc MD W Scott Sheldon, DO~ Cardiology HPI History of Present Illness Consult Date: 06/01/25 Reason for Consult: Accelerated hypertension, ESRD, ASHD, 4+ mitral regurg HPI: Mr. Tamayo is a 40 year old male seen in cardiology consultation at request of ER attending, Dr.Ashley Munoz and hospitalist this morning; case discussedwith [...] Patient has known coronary artery disease, remote VA, multivessel PCI's last which was restenosis of [...] heart referral. Patient be discharged this morning REPLACED BY [facility] Medical History Type I diabetes mellitus with [...] PO .tidwith meal 11/13/23 [History Confirmed 05/31/25] 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,mold shaker,cont (FreeStyle Ramy 3 [place]) #1 ea 03/19/24 [Rx Confirmed 05/31/25] omeprazole [...] (Lantus Solostar U-100 Insulin) 20 unit subcutQHS diabetes 10/30/24 [History Confirmed 05/31/25] 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 meter [...] Lymph # (Auto) 0.5 L (1.00-4.8) x10E3/uL [place] # (Auto) 0.2 (0.0-0.8) x10E3/uL Eos # [...] 5 MG/HR 50 mls/hr IV .Q4H RACHELL Rx#:[id number] Other: # Voids 1 # Unmeasured Voids [...] above Documented By: Denilson Gomez DO 06/01/25 1054 Signed By: <Electronically signed by Denilson Gomez DO> 06/01/25 1102 [facility] Work Phone: Discharge summary Author Jorge Mederos [facility] August 18, 2023 1:30pmNote Date/TimeDece2022 1:31p[address] [address] Discharge Summary Signed Patient: Yoel Tamayo MR#: [id number] : 1985 Acct:[id number] Age/Sex: 38 / M Adm Date: 3 Loc: 3T Room: 2H1489-[address]: Jorge Mederos DO Copies to: [...] anxiety who presented with chest pain to [facility] () ER and transferred for the [...] stents . Pt transferred to [facility] as chest pain did not resolve despite flat troponin elevation. Pt chest pain had resolved upon arrival to [facility] and repeat troponin here was less than at [place].Cardiology cleared pt for discharge and made adjustment [...] 40 H, Creatinine 6.43 H, Est GFR (CKD-EPI) 10.590, Glucose 97, Calcium 8.6, Magnesium 1.9, [...] UNITS SUBCUTANEOUSLY ONCE A DAY Follow Up: [facility] [Outside] (Please call to schedule an appointment.) Eusebio Olivares DO [Primary Care Provider] - (His office is currently closed. Please call to schedule a post hospital appointment.) Documented By: Jorge Mederos DO 08/18/23 132 8 Signed By: <Electronically signed by Jorge Mederos DO> 08/18/23 1330 [facility] Work Phone: Evaluation + Plan noteExecutive Urology of [facility] Evaluation noteNo InformationNort [employer] Other Evaluation noteNo assessment information available [facility] Work Phone: Evaluation note* Diagnosis Onset Date Resolution Status MGUS (monoclonal gammopathy of unknown s ignificance) acute [facility] Work Phone: Evaluation note* Diagnosis Onset Date Resolution Status MGUS (monoclonal gammopathy of unknown s ignificance) acuteAcute congestive heart failureacuteAKI (acute kidney injury)acuteAnemia acuteCAD (coronary artery disease)acuteChest painacuteChronic kidney disease, stage IV (severe)acuteCKD (chronic kidney disease)acuteDiabetesacuteHTN (hypertension)acuteSyncopeacuteUncontrolled hypertensionacute [facility] Work Phone: Evaluation note* Diagnosis Onset Date Resolution Status Acute congestive heart failure acuteAKI (acute kidney injury)acuteAnemiaacuteCAD (coronary artery disease)acute Chest painacuteChronic kidney disease, stage IV (severe)acuteCKD (chronic kidney disease)acuteDiabetesacuteHTN (hypertension)acuteSyncopeacuteUncontrolled hypertensionacuteMGUS (monoclonal gammopathy of unknown significance)acute [facility] Work Phone: Evaluation note* Diagnosis Screening for genitourinary condition Screening for other and unspecified genitourinary condition [facility] Diagnosis Onset Date Resolution Status Acute congestive heart failure acuteAKI (acute kidney injury)acuteAnemiaacuteCAD (coronary artery disease)acute Chest painacuteChronic kidney disease, stage IV (severe)acuteCKD (chronic kidney disease)acuteDiabetesacuteHTN (hypertension)acuteSyncopeacuteUncontrolled hypertensionacuteMGUS (monoclonal gammopathy of unknown significance)acuteStage 3b chronic kidney disease (CKD)acute [facility] Work Phone: Evaluation note* Diagnosis Onset Date Resolution Status Acute congestive heart failure acuteAKI (acute kidney injury)acuteAnemiaacuteCAD (coronary artery disease)acute Chest painacuteChronic kidney disease, stage IV (severe)acuteCKD (chronic kidney disease)acuteDiabetesacuteHTN (hypertension)acuteSyncopeacuteUncontrolled hypertensionacuteMGUS (monoclonal gammopathy of unknown significance)acuteStage 3b chronic kidney disease (CKD)acuteChest painacute[facility] Work [facility]: Evaluation note* Diagnosis Onset Date Resolution Status Acute congestive heart failure acuteAKI (acute kidney injury)acuteAnemiaacuteCAD (coronary artery disease)acute Chest painacuteChronic kidney disease, stage IV (severe)acuteCKD (chronic kidney disease)acuteDiabetesacuteHTN (hypertension)acuteSyncopeacuteUncontrolled hypertensionacuteMGUS (monoclonal gammopathy of unknown significance)acuteStage 3b chronic kidney disease (CKD)acuteAnemiaacuteChest painacuteCKD (chronic kidney disease)acuteDiabetesacuteTriple vessel disease of the heartacute [facility] Work Phone: Evaluation note* Diagnosis Onset Date Resolution Status MGUS (monoclonal gammopathy of unknown s ignificance) acuteStage 3b chronic kidney disease (CKD)acuteAnemiaacuteChest painacuteCKD (chronic kidney disease)acuteDiabetesacuteTriple vessel disease of the heart acute [facility] Work Phone: Evaluation note* Diagnosis Onset Date Resolution Status Anemia acuteChest painacuteCKD (chronic kidney disease)acuteDiabetesacuteTriple vessel disease of the heartacute [facility] Work Phone: Evaluation note* Diagnosis Onset Date Resolution Status Anemia acuteCAD (coronary artery disease)acuteChest painacuteChronic kidney disease, stage IV (severe)acuteDiabetesacuteGERD (gastroesophageal reflux disease)acute History of placement of stent in LAD coronary arteryacuteHypertensionacuteKidney failureacute [facility] Work Phone: evaluation note* Diagnosis Onset Date Resolution Status Anemia acuteCAD (coronary artery disease)acuteChest painacuteChronic kidney disease, stage IV (severe)acuteDiabetesacuteGERD (gastroesophageal reflux disease)acute History of placement of stent in LAD coronary arteryacuteHypertensionacuteKidney failureacuteMGUS (monoclonal gammopathy of unknown significance)acuteStage 3b chronic kidney disease (CKD)acute [facility] Work Phone: Evaluation [facility] Other evaluation note* Diagnosis Onset Date Resolution Status MGUS (monoclonal gammopathy of unknown s ignificance) acuteStage 3b chronic kidney disease (CKD)acute [facility] Work Phone: Evaluation note* Diagnosis Onset Date Resolution Status CAD (coronary artery disease) acuteChest pain, rule out acute myocardial infarctionacuteDiabetes mellitusacute ESRD (end stage renal disease) on dialysisacute [facility] Work Phone: Evaluation note* Diagnosis Onset Date Resolution Status Chest pain, rule out acute myocardial in farction resolved [facility] Work Phone: Evaluation note* Diagnosis Left shoulder pain, unspecified chronicity- Primary Impingement of left shoulder Internal derangement of left shoulder [facility]* Diagnosis Onset Date Resolution Status ESRD (end stage renal disease) on dialys is acuteChest pain, rule out acute myocardial infarctionresolvedMGUS (monoclonal gammopathy of unknown significance)acuteChronic pain syndromeacuteConstipation acuteEncounter for palliative careacuteESRD (end stage renal disease) on dialysisacuteMGUS (monoclonal gammopathy of unknown significance)acuteNausea & vomitingacuteAV fistula stenosisacute [facility] Work Phone: Evaluation note* Diagnosis Onset Date Resolution Status Chest pain, rule out acute myocardial in farction resolvedMGUS (monoclonal gammopathy of unknown significance)acuteEncounter for palliative careacuteMGUS (monoclonal gammopathy of unknown significance)acuteAV fistula stenosisacuteASHD (arteriosclerotic heart disease)acuteESRD (end stage renal disease) on dialysisacuteMild episode of recurrent major depressive disorderacuteMixed hyperlipidemiaacutePrimary hypertensionacuteType 1 diabetes mellitus with hyperglycemiaacute [facility] Work Phone: Evaluation note* Diagnosis Onset Date Resolution Status MGUS (monoclonal gammopathy of unknown s ignificance) acuteEncounter for palliative careacuteMGUS (monoclonal gammopathy of unknown significance)acuteAV fistula stenosisacuteAcute exacerbation of chronic obstructive airways diseaseacuteASHD (arteriosclerotic heart disease)acuteESRD (end stage renal disease) on dialysisacutePrimary hypertensionacuteType 1 diabetes mellitus with hyperglycemiaacute [facility] Work Phone: Evaluation note* Diagnosis ASHD (arteriosclerotic heart disease) Coronary atherosclerosis of unspecified type of vessel, [place] or graft Essential hypertension, benign Mixed hyperlipidemia History of VA (myocardial infarction) Old myocardial infarction Status post insertion of drug eluting coronary artery stent ESRD (end stage renal disease) on dialysis (Multi) End stage renal disease Current every day smoker Type 2 diabetes mellitus with chronic kidney disease on chronic dialysis, with long-term current use of insulin (Multi) BMI 22.0-22.9, adult documented in this encounter [facility] Work Phone: Evaluation note* Diagnosis Onset Date Resolution Status Encounter for palliative care acuteMGUS (monoclonal gammopathy of unknown significance)acuteAV fistula stenosisacuteAcute exacerbation of chronic obstructive airways diseaseacuteASHD (arteriosclerotic heart disease)acuteESRD (end stage renal disease) on dialysis acutePrimary hypertensionacuteType 1 diabetes mellitus with hyperglycemiaacuteAV fistulaacute [facility] Work Phone: Evaluation note* Diagnosis Onset Date Resolution Status AV fistula acuteAcute hypoxic respiratory failureacuteAV fistulaacuteESRD (end stage renal disease) on dialysisacuteHCAP (healthcare-associated pneumonia)acuteType 1 diabetes mellitus with hyperglycemiaacute [facility] Work Phone: Evaluation note* Diagnosis Onset Date Resolution Status AV fistula acuteAcute exacerbation of chronic obstructive airways diseaseacuteAcute hypoxic respiratory failureacuteAnemia in chronic kidney diseaseacuteAV fistulaacuteESRD (end stage renal disease) on dialysisacuteHCAP (healthcare-associated pneumonia) acuteHypertensive CKD, ESRD on dialysisacuteSecondary hyperparathyroidismacute Type 1 diabetes mellitus with hyperglycemiaacute [facility] Work Phone: Evaluation note* Diagnosis Onset Date Resolution Status AV fistula acuteAcute exacerbation of chronic obstructive airways diseaseacuteAcute hypoxic respiratory failureacuteAnemia in chronic kidney diseaseacuteAV fistulaacuteESRD (end stage renal disease) on dialysisacuteHCAP (healthcare-associated pneumonia) acuteHypertensive CKD, ESRD on dialysisacuteSecondary hyperparathyroidismacute Type 1 diabetes mellitus with hyperglycemiaacuteAcute bronchitisacuteHypoxemia acute [facility] Work Phone: Evaluation note* Diagnosis Onset Date Resolution Status AV fistula acuteAcute exacerbation of chronic obstructive airways diseaseacuteAnemia in chronic kidney diseaseacuteAV fistulaacuteESRD (end stage renal disease) on dialysisacuteHCAP (healthcare-associated pneumonia)acuteHypertensive CKD, ESRD on dialysisacuteSecondary hyperparathyroidismacuteType 1 diabetes mellitus with hyperglycemiaacuteAcute hypoxic respiratory failureresolvedAcute bronchitisacute Acute metabolic encephalopathyacuteAcute on chronic diastolic heart failureacute Anemia in chronic kidney diseaseacuteESRD (end stage renal disease) on dialysis acuteHyperkalemiaacuteHyperosmolar hyperglycemic state (HHS)acuteHypertensive CKD, ESRD on dialysisacuteHypoxemiaacuteSecondary hyperparathyroidismacuteType 1 diabetes mellitus with hyperglycemiaacuteAcute hypoxic respiratory failure resolved [facility] Work Phone: Evaluation note* Diagnosis Onset Date Resolution Status AV fistula acuteAcute exacerbation of chronic obstructive airways diseaseacuteAV fistula acuteHCAP (healthcare-associated pneumonia)acuteAcute hypoxic respiratory failureresolvedEncephalopathyacuteEnd-stage renal disease (ESRD)acute HyperglycemiaacuteAcute bronchitisresolvedAcute hypoxic respiratory failure resolvedAcute metabolic encephalopathyresolvedAcute on chronic diastolic heart failureresolvedHyperkalemiaresolvedHyperosmolar hyperglycemic state (HHS) resolvedHypoxemiaresolvedAcute exacerbation of chronic obstructive airways diseaseacuteASHD (arteriosclerotic heart disease)acutePrimary hypertensionacute [facility] Work Phone: Evaluation note* Diagnosis Onset Date Resolution Status Acute exacerbation of chronic obstructiv e airways disease acuteAV fistulaacuteHCAP (healthcare-associated pneumonia)acuteAcute hypoxic respiratory failureresolvedEncephalopathyacuteEnd-stage renal disease (ESRD) acuteHyperglycemiaacuteAcute bronchitisresolvedAcute hypoxic respiratory failure resolvedAcute metabolic encephalopathyresolvedAcute on chronic diastolic heart failureresolvedHyperkalemiaresolvedHyperosmolar hyperglycemic state (HHS) resolvedHypoxemiaresolvedAcute exacerbation of chronic obstructive airways diseaseacuteASHD (arteriosclerotic heart disease)acuteNicotine addictionacute Primary hypertensionacuteASHD (arteriosclerotic heart disease)acuteNicotine addictionacutePrimary hypertensionacute [facility] Work Phone: Evaluation note* Diagnosis Type 2 diabetes mellitus without complication, with long-term current use of insulin ([facility])- Primary Pain due to onychomycosis of toenails of both feet Hav (hallux abducto valgus), left documented in [facility] encounter [facility]* Diagnosis ASHD (arteriosclerotic heart disease) Coronary atherosclerosis of unspecified type of vessel, [place] or graft Congestive heart failure, unspecified HF chronicity, unspecified heart failure type Essential hypertension, benign History of VA (myocardial infarction) Old myocardial infarction Mixed hyperlipidemia Status post insertion of drug eluting coronary artery stent ESRD (end stage renal disease) on dialysis (Multi) End stage renal disease Type 2 diabetes mellitus with chronic kidney disease on chronic dialysis, with long-term current use of insulin ([facility]) BMI 21.0-21.9, adult Current every day smoker documented in this encounter [facility] Work Phone: Evaluation note* Diagnosis ASHD (arteriosclerotic heart disease) Coronary atherosclerosis of unspecified type of vessel, [place] or graft History of VA (myocardial infarction) Old myocardial infarction Status post insertion of drug eluting coronary artery stent Aortic valve disorder Aortic valve disorders ESRD (end stage renal disease) on dialysis (Multi) End stage renal disease Vapes nicotine containing substance documented in this encounter [facility] Work Phone: Evaluation note* Diagnosis Type 2 diabetes mellitus without complication, with long-term current use of insulin- Primary Pain due to onychomycosis of toenails of both feet Hav (hallux abducto valgus), left documented in this encounter [facility]* Diagnosis Mitral valve insufficiency, unspecified etiology documented in this encounter [facility] Work Phone: Evaluation note* Diagnosis ASHD (arteriosclerotic heart disease) Coronary atherosclerosis of unspecified type of vessel, [place] or graft History of VA (myocardial infarction) Old myocardial infarction Status post [...] Essential hypertension, benign documented in this encounter [facility] Work Phone: Evaluation note* Diagnosis Nonrheumatic mitral valve regurgitation documented in this encounter [facility] Work Phone: Evaluation note* Diagnosis Severe mitral regurgitation- Primary documented in this encounter [facility] Work Phone: Evaluation note* Diagnosis Nonrheumatic mitral valve regurgitation- Primary documented in this encounter [facility] Work Phone: Evaluation note* Diagnosis Essential (primary) hypertension- Primary Unspecified essential hypertension BMI 24.0-24.9, adult Former smoker Personal history of tobacco use, presenting hazards to health Vapes non-nicotine containing substance documented in this encounter [facility] Work Phone: History and physical note Author Isidoro eMsa [facility] August 13, 2022 4:55amNote Date/TimeDecember 2021 4:18am[address] [address] Hospitalist H&P Signed Patient: Yoel Tamayo MR#: [id number] : 1985 Acct:[id number] Age/Sex: 37 / M Adm Date: 2 Loc: Room: [address] [place] [address] Type: ADM INOo Attending Dr: Isidoro Mesa DO Copies to: DO Isidoro Leblanc DO~ HPI DATE OF EXAMINATION: 08/13/22 CHIEF COMPLAINT: syncope HISTORY OF PRESENT ILLNESS: Mr Tamayo is a 37-year-old male with past medical history of insulin- dependent diabetes, hypertension, hyperlipidemia, CKD, tobacco use, NSTEMI status post stenting to the proximal to mid LAD in November presents to hospital today with chief complaint of chest pain and syncope at home. Most of the h istory will be taken from the chart, upon arrival to the floor in my assessment, the patient was quite drowsy and was very short of answers if even acknowledged the question at all. Per the ED report, the patient was using the restroom and had chest pain when he stood up he states he passed out. [place] believe he hit his head, however upon my assessment in the room he denies any head pain. He coughlin s not answer if he had any visual [...] % (Auto) 29.2 % (.) 08/12/22 23:58 [place] % (Auto) 8.9 % (.) 08/12/22 23:58 Eos % (Auto) 2.7 % (.) 08/12/22 23:58 Baso % (Auto) 1.5 % (.) 08/12/22 23:58 Nucleat RBC Rel Count 0.1 /100 WBC (0-0.5) 08/12/22 23:58 Neut # (Auto) 3.1 x10E3/uL (1.8-7.7) 08/12/22 23:58 Lymph # (Auto) 1.6 x10E3/uL (1.00-4.8) 08/12/22 23:58 [place] # (Auto) 0.5 x10E3/uL (0.0-0.8) 08/12/22 23:58 [...] pH 5.5 (5.0-9.0) 08/13/22 00:49 Ur Specific [place] 1.011 (1.001-1.030) 08/13/22 00:49 Urine Protein 300 [...] signed by Isidoro Mesa DO> 08/13/22 0455 [facility] Work Phone: History and physical note Author Isidoro Mesa [facility] March 01, 2024 6:46amNote Date/TimeJuly 2023 6:32[place] [address] Hospitalist H&P Signed Patient: Yoel Tamayo MR#: [id number] : 1985 Acct:[id number] Age/Sex: 38 / M Adm Date: 4 Loc: 4N Room: [address] [place] [address] Type: ADM IN Attending Dr: Isidoro Mesa DO Copies to: DO Isidoro Leblanc DO~ HPI DATE OF EXAMINATION: 03/01/24 CHIEF COMPLAINT: shortness of breath HISTORY OF PRESENT ILLNESS: Mr Tamayo is a 38-year-old male with a past [...] this 3-month period, he did go to [facility] yesterday was diagnosed with bronchitis, received a DuoNeb treatment and was discharged. He was feeling better shortly after discharge however today he felt nauseous for roughly 45 minutes and had numer ousepisodes of vomiting so he came back to [...] He denies any further issues such as chestpain, constipation or diarrhea but says he still is little bit nauseoushowever it was relieved fromZofran he received emergency room. His last dialysis session was on Saturday, he says his dry weight is 71.5 kg and he had a full session on Saturday removed and then usual amount of fluid. Review of Systems Review of Systems All other systems reviewed & are negative unless noted below or in HPI REPLACED BY [facility] Medical History Cataract Acute exacerbation of chronic [...] % (Auto) 8.0 % (.) 03/01/24 02:55 [place] % (Auto) 5.4 % (.) 03/01/24 02:55 Eos % (Auto) 0.2 % (.) 03/01/24 02:55 Baso % (Auto) 0.8 % (.) 03/01/24 02:55 Nucleat RBC Rel Count 0.0 /100 WBC (0-0.5) 03/01/24 02:55 Neut # (Auto) 8.8 x10E3/uL (1.8-7.7) H 03/01/24 02:55 Lymph # (Auto) 0.8 x10E3/uL (1.00-4.8) L 03/01/24 02:55 [place] # (Auto) 0.5 x10E3/uL (0.0-0.8) 03/01/24 02:55 [...] days): 3 Documented By: Isidoro Mesa DO 03/01/24627 Signed By: <Electronically signed by Isidoro Mesa DO> 03/01/24645 [facility] Work Phone: History and physical note Author Judd Jacobs [facility] Date/TimeMarch 2024 11:46pm[address] [place] [address] Hospitalist H&P Signed Patient: Yoel Tamayo MR#: [id number] : 1985 Acct:[id number] Age/Sex: 39 / M Adm Date: 5 Loc: Room: [address] [place] [address] Type: ADM INOo Attending Dr: Judd Jacobs [...] anithypertensive medications VTE prophyalxis- SCDs FULL CODE REPLACED BY [facility] Medical History Contusion of right lower extremity Chronic heart failure with preserved ejection fraction (HFpEF) Type 1 diabetes mellitus with hyperglycemia Mitral regurgitation Wellness examination Hypertensive CKD, ESRD on dialysis Secondary hyperparathyroidism Dependence on renal dialysis Mon-Wed-Sat EBENEZER (generalized anxiety disorder) Mixed hyperlipidemia Monoclonal [...] 11/13/23 [History Confirmed 11/01/24] 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 meter,continuous ([employer] [place]) #1 ea 03/19/24 [Rx Confirmed 11/01/24] omeprazole [...] both eyes and all related structures Visual Rm: normal visual rm by confrontation Sclera: sclerae normal Pupils: PERRL [...] 11/01/24 20:49 MCV 84.3 fl (83.5-101) 11/01/24 20: MCH 28.6 pg (27.5-35.2) 11/01/24 20: MCHC 33.9 g/dL (32.5-35.6) 11/01/24: RDW 15.4 % (12.0-14.8) H 11/01/24:49 Plt Count 142 x10E3/uL (150-450) L 11/01/24 20:49 MPV 7.3 fl (6.6-10.1) 11/01/24 20:49 Neut % (Auto) 72.4 % (.) 11/01/24 20:49 Lymph % (Auto) 13.5 % (.) 11/01/24 20:49 [place] % (Auto) 6.3 % (.) 11/01/24 20:49 Eos % (Auto) 5.7 % (.) 11/01/24:49 Baso % (Auto) 2.1 % (.) 11/01/24 20:49 Nucleat RBC Rel Count 0.0 /100 WBC (0-0.5) 11/01/24 20:49 Neut # (Auto) 4.3 x10E3/uL (1.8-7.7) 11/01/24 20:49 Lymph # (Auto) 0.8 x10E3/uL (1.00-4.8) L 11/01/24 20:49 [place] # (Auto) 0.4 x10E3/uL (0.0-0.8) 11/01/24 20:49 [...] pH 7.0 (5.0-9.0) 11/01/24 21:56 Ur Specific [place] 1.010 (1.001-1.030) 11/01/24 21:56 Urine Protein 200 [...] signed by Judd Jacobs MD> 11/01/24 2346 [facility] Work Phone: Hisycxq general Narrative - Reported* Type Description Date Medical History HYPERTENSION Medical HistoryDIABETES MELLITUS TYPE 2 WITH HYPERGLYCEMIAGAD GENERALIZED ANXIETY DISORDERMedical HistoryCHRONIC VENOUS INSUFFICIENCYSurgical HistoryLEFT KNEE SURGERYSurgical HistoryVASECTOMYSurgical History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Hospitalization HistorySEE ABOVE [employer] Other History general Narrative - Reported* Type Description Date Medical History HYPERTENSION Medical HistoryDIABETES MELLITUS TYPE 2 WITH HYPERGLYCEMIAGAD GENERALIZED ANXIETY DISORDERMedical HistoryCHRONIC VENOUS INSUFFICIENCYMedical HistoryCHEST PAINMedical HistoryELEVATED TROPONINMedical HistoryAKI (ACUTE KIDNEY INJURY) Medical HistoryANEMIAMedical HistoryACUTE COMBINED SYSTOLIC AND DIASTOLIC HEART FAILUREMedical HistoryANASARCAMedical HistoryCONSTIPATIONSurgical HistoryLEFT KNEE SURGERYSurgical HistoryVASECTOMYSurgical History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Surgical HistoryHEART STENT X1 LED11/2021Hospitalization HistorySEE ABOVE Hospitalization HistoryCHEST PAIN, PINO, ACUTE COMBINED SYSTOLIC AND DIASTOLIC HEART FAILURE11/13/2021 [employer] Other History general Narrative - Reported* Type Description Date Medical History HYPERTENSION Medical HistoryDIABETES MELLITUS TYPE 2 WITH HYPERGLYCEMIAGAD GENERALIZED ANXIETY DISORDERMedical HistoryCHRONIC VENOUS INSUFFICIENCYMedical HistoryCHEST PAINMedical HistoryELEVATED TROPONINMedical HistoryAKI (ACUTE KIDNEY INJURY) Medical HistoryANEMIAMedical HistoryACUTE COMBINED SYSTOLIC AND DIASTOLIC HEART FAILUREMedical HistoryANASARCAMedical HistoryCONSTIPATIONMedical HistoryHEART ATTACKSurgical HistoryLEFT KNEE SURGERYSurgical HistoryVASECTOMYSurgical History 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Surgical HistoryHEART STENT X1 LED11/2021 Hospitalization HistorySEE ABOVEHospitalization HistoryCHEST PAIN, PINO, ACUTE COMBINED SYSTOLIC AND DIASTOLIC HEART FAILURE11/13/2021 [employer] Other History general Narrative - Reported* Type Description Date Medical History HYPERTENSION Medical HistoryDIABETES MELLITUS TYPE 2 WITH HYPERGLYCEMIAGAD GENERALIZED ANXIETY DISORDERMedical HistoryCHRONIC VENOUS INSUFFICIENCYMedical HistoryCHEST PAINMedical HistoryELEVATED TROPONINMedical HistoryAKI (ACUTE KIDNEY INJURY) Medical HistoryANEMIAMedical HistoryACUTE COMBINED SYSTOLIC AND DIASTOLIC HEART FAILUREMedical HistoryANASARCAMedical HistoryCONSTIPATIONMedical HistoryHEART ATTACKSurgical HistoryLEFT KNEE SURGERYSurgical HistoryVASECTOMYSurgical History 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Surgical HistoryHEART STENT X1 LED11/2021 Hospitalization HistorySEE ABOVEHospitalization HistoryCHEST PAIN, PINO, ACUTE COMBINED SYSTOLIC AND DIASTOLIC HEART FAILURE11/13/2021Hospitalization History [id number] [employer] Other History general Narrative - Reported* Type Description Date Medical History HYPERTENSION Medical HistoryDIABETES MELLITUS TYPE 2 WITH HYPERGLYCEMIAGAD GENERALIZED ANXIETY DISORDERMedical HistoryCHRONIC VENOUS INSUFFICIENCYMedical HistoryCHEST PAINMedical HistoryELEVATED TROPONINMedical HistoryAKI (ACUTE KIDNEY INJURY) Medical HistoryANEMIAMedical HistoryACUTE COMBINED SYSTOLIC AND DIASTOLIC HEART FAILUREMedical HistoryANASARCAMedical HistoryCONSTIPATIONMedical HistoryHEART ATTACKMedical History10/02/2022 MINOR HEART ATTACKSurgical HistoryLEFT KNEE SURGERYSurgical HistoryVASECTOMYSurgical History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 Surgical HistoryHEART STENT X1 LEDurgical HistoryFISTULA09/17/2022 Hospitalization HistorySEE ABOVEHospitalization HistoryCHEST PAIN, PINO, ACUTE COMBINED SYSTOLIC AND DIASTOLIC HEART FAILURE11/13/2021Hospitalization History [id number] HistoryMINOR HEART ATTACK10/02/2022 [employer] Other History general Narrative - Reported* Type Description Date Medical History HYPERTENSION Medical HistoryDIABETES MELLITUS TYPE 2 WITH HYPERGLYCEMIAGAD GENERALIZED ANXIETY DISORDERMedical HistoryCHRONIC VENOUS INSUFFICIENCYMedical HistoryCHEST PAINMedical HistoryELEVATED TROPONINMedical HistoryAKI (ACUTE KIDNEY INJURY) Medical HistoryANEMIAMedical HistoryACUTE COMBINED SYSTOLIC AND DIASTOLIC HEART FAILUREMedical HistoryANASARCAMedical HistoryCONSTIPATIONMedical HistoryHEART ATTACKMedical History10/02/2022 MINOR HEART ATTACKSurgical HistoryLEFT KNEE SURGERYSurgical HistoryVASECTOMYSurgical History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 Surgical HistoryHEART STENT X1 LEDurgical HistoryFISTULA LEFT ARM 09/17/2022Hospitalization HistorySEE ABOVEHospitalization HistoryCHEST PAIN, PINO, ACUTE COMBINED SYSTOLIC AND DIASTOLIC HEART FAILURE11/13/2021Hospitalization PxpkxivHSVVSNR02/2022Hospitalization HistoryMINOR HEART ATTACK10/02/2022 [employer] Other History general Narrative - Reported* Type Description Date Medical History HYPERTENSION Medical HistoryDIABETES MELLITUS TYPE 2 WITH HYPERGLYCEMIAGAD GENERALIZED ANXIETY DISORDERMedical HistoryCHRONIC VENOUS INSUFFICIENCYMedical HistoryCHEST PAINMedical HistoryELEVATED TROPONINMedical HistoryAKI (ACUTE KIDNEY INJURY) Medical HistoryANEMIAMedical HistoryACUTE COMBINED SYSTOLIC AND DIASTOLIC HEART FAILUREMedical HistoryANASARCAMedical HistoryCONSTIPATIONMedical HistoryHEART ATTACKMedical History10/02/2022 MINOR HEART ATTACKMedical History12/2022 ANTOTHER HEART ATTACKSurgical HistoryLEFT KNEE SURGERYSurgical HistoryVASECTOMYSurgical History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Surgical HistoryHEART STENT X1 LED11/2021 Surgical HistoryFISTULA LEFT ARM09/17/2022Surgical Historyangioplasty on left arm fistula11/2022Surgical Historyangioplasty on left arm fisutla12/2022 Hospitalization HistorySEE ABOVEHospitalization HistoryCHEST PAIN, PINO, ACUTE COMBINED SYSTOLIC AND DIASTOLIC HEART FAILURE11/13/2021Hospitalization History MEUDUIX68/2022Hospitalization HistoryMINOR HEART ATTACK10/02/2022 [employer] Other History general Narrative - ReportedNortBondora (by isePankur) Other History general Narrative - Reported* Type Description Date Medical History HYPERTENSION Medical HistoryDIABETES MELLITUS TYPE 2 WITH HYPERGLYCEMIAGAD GENERALIZED ANXIETY DISORDERMedical HistoryCHRONIC VENOUS INSUFFICIENCYMedical HistoryCHEST PAINMedical HistoryELEVATED TROPONINMedical HistoryAKI (ACUTE KIDNEY INJURY) Medical HistoryANEMIAMedical HistoryACUTE COMBINED SYSTOLIC AND DIASTOLIC HEART FAILUREMedical HistoryANASARCAMedical HistoryCONSTIPATIONMedical HistoryHEART ATTACKMedical History10/02/2022 MINOR HEART ATTACKMedical History12/2022 HEART ATTACKMedical HistoryLOW BLOOD SUGAR 12/2022Surgical HistoryLEFT KNEE SURGERY Surgical HistoryVASECTOMYSurgical History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Surgical HistoryHEART STENT X1 LADurgical HistoryFISTULA LEFT ARM09/17/2022Surgical Historyangioplasty on left arm fistula11/2022Surgical Historyangioplasty on left arm fisutla12/2022Surgical HistoryLHC, PCI/stent RCA x Hospitalization HistorySEE ABOVEHospitalization HistoryCHEST PAIN, PINO, ACUTE COMBINED SYSTOLIC AND DIASTOLIC HEART FAILURE11/13/2021Hospitalization WetvbmgMICKNQK50/2022 Hospitalization HistoryMINOR HEART ATTACK10/02/2022Hospitalization HistoryHEART ATTACK12/2022 [employer] Other History general Narrative - ReportedNort [employer] Other History general Narrative - Reported* Type Description Date Medical History HYPERTENSION Medical HistoryDIABETES MELLITUS TYPE 2 WITH HYPERGLYCEMIAGAD GENERALIZED ANXIETY DISORDERMedical HistoryCHRONIC VENOUS INSUFFICIENCYMedical HistoryCHEST PAINMedical HistoryELEVATED TROPONINMedical HistoryAKI (ACUTE KIDNEY INJURY) Medical HistoryANEMIAMedical HistoryACUTE COMBINED SYSTOLIC AND DIASTOLIC HEART FAILUREMedical HistoryANASARCAMedical HistoryCONSTIPATIONMedical HistoryHEART ATTACKMedical History10/02/2022 MINOR HEART ATTACKMedical History12/2022 HEART ATTACKMedical HistoryLOW BLOOD SUGAR 12/2022Medical Historyend stage renal diseaseSurgical HistoryLEFT KNEE SURGERYSurgical HistoryVASECTOMYSurgical History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Surgical HistoryHEART STENT X1 LAD11/2021 Surgical HistoryFISTULA LEFT ARM09/17/2022Surgical Historyangioplasty on left arm fistula4/2023Surgical Historyangioplasty on left arm fisutla12/2022Surgical HistoryLHC, PCI/stent RCA x Hospitalization HistorySEE ABOVE Hospitalization HistoryCHEST PAIN, PINO, ACUTE COMBINED SYSTOLIC AND DIASTOLIC HEART FAILURE11/13/2021Hospitalization IrvcawpUAOXOFV43/2022Hospitalization HistoryMINOR HEART ATTACK10/02/2022Hospitalization HistoryHEART ATTACK12/2022 [employer] Other History general Narrative - Reported* Type Description Date Medical History HYPERTENSION Medical HistoryDIABETES MELLITUS TYPE 2 WITH HYPERGLYCEMIAGAD GENERALIZED ANXIETY DISORDERMedical HistoryCHRONIC VENOUS INSUFFICIENCYMedical HistoryCHEST PAINMedical HistoryELEVATED TROPONINMedical HistoryAKI (ACUTE KIDNEY INJURY) Medical HistoryANEMIAMedical HistoryACUTE COMBINED SYSTOLIC AND DIASTOLIC HEART FAILUREMedical HistoryANASARCAMedical HistoryCONSTIPATIONMedical HistoryHEART ATTACKMedical History10/02/2022 MINOR HEART ATTACKMedical History12/2022 HEART ATTACKMedical HistoryLOW BLOOD SUGAR 12/2022Medical Historyend stage renal diseaseSurgical HistoryLEFT KNEE SURGERYSurgical HistoryVASECTOMYSurgical History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Surgical HistoryHEART STENT X1 LAD11/2021 Surgical HistoryFISTULA LEFT ARM09/17/2022Surgical Historyangioplasty on left arm fistula11/2022Surgical Historyangioplasty on left arm fisutla12/2022Surgical HistoryLHC, PCI/stent RCA x Surgical HistoryCOIL WITH HIS LT ARM FISTULA 06/17/2023Hospitalization HistorySEE ABOVEHospitalization HistoryCHEST PAIN, PINO, ACUTE COMBINED SYSTOLIC AND DIASTOLIC HEART FAILURE11/13/2021Hospitalization QholwqqDSUUUVK83/2022Hospitalization HistoryMINOR HEART ATTACK10/02/2022 Hospitalization HistoryHEART ATTACK12/2022 [employer] Other Hospital course Narrative No data available for this section [facility] Hospital Discharge instructions Additional Instructions Continue current meds You may return at any time Follow-up with your private physician [facility] Hospital Discharge instructions Additional Instructions Follow-up with your primary care doctor Return to ED if develop worsening symptoms or concernsAshtabula [facility] Center Work Phone: Hospital Discharge instructions Additional Instructions If your symptoms return/worsen or you develop any further concerns or symptoms please see your doctor or return to the emergency department immediately.[facility] Work Phone: Hospital Discharge instructions Additional Instructions Monitor glucose levels as before.[facility] Work Phone: Hospital Discharge instructions Additional Instructions [...] doctor or pharmacist, without first calling the chain testing machine operator who implanted the stent. If you [...] weight lifting, stair steppers, etc. until the chain testing machine operator approves these activities. Check with the chain testing machine operator on your first follow-up visit. CALL YOUR PHYSICIAN at [phone]: -If bleeding should occur from the catheter insertion site- apply pressure to the site then immediately call us. -Report any fever, redness, drainage, increased swelling, or firmness at the catheter insertion site. Some bruising or slight swelling may be present at the time of discharge. -Should arm or leg become cold, numb, white, or blue, contact the chain testing machine operator immediately. -IF you should experience episodes [...] is recommended. Please call Central Scheduling at [phone] to schedule your appointment.] The attending chain testing machine operator or [facility] nurse clinician should provide you with specific instructions regarding activity, diet, medications, and further follow up for you. Follow the medication instructions provided on your discharge. If the dosages and instructions on this sheet differ from the dosage and instructions on the bottle, follow the instructions on the bottle. [facility] is not responsible for incorrect prescription information provided by the patient during their visit. Do not stop your medications without consulting your health care provider. Please take the list with you to your next doctor's appointment.[facility] Work Phone: Hospital Discharge instructions Additional Instructions Continue Hemodialysis as directed.[facility] Work Phone: Hospital Discharge instructions Additional Instructions [...] pain shortness of breath or any other concernsAshtabula County Medical Center Work Phone: Hospital Discharge instructions Additional Instructions If your symptoms return/worsen or you develop any further concerns or symptoms please see your doctor or return to the emergency department immediately. It is imperative that you go over today's visit and all results with your primary care provider.[facility] Work Phone: Hospital Discharge instructions Additional Instructions [...] doctor or pharmacist, without first calling the chain testing machine operator who implanted the stent. If you [...] weight lifting, stair steppers, etc. until the chain testing machine operator approves these activities. Check with the chain testing machine operator on your first follow-up visit. CALL YOUR IMPERSONATOR CHARACTER: -If bleeding should occur from the catheter insertion site- apply pressure to the site then immediately call us. -Report any fever, redness, drainage, increased swelling, or firmness at the catheter insertion site. Some bruising or slight swelling may be present at the time of discharge. -Should arm or leg become cold, numb, white, or blue, contact the chain testing machine operator immediately. -IF you should experience episodes [...] Cardiopulmonary Rehabilitation program is recommended. The attending chain testing machine operator or a nurse clinician should provide you with specific instructions regarding activity, diet, medications, and further follow up for you. Follow the medication instructions provided on your discharge. If the dosages and instructions on this sheet differ from the dosage and instructions on the bottle, follow the instructions on the bottle. [facility] is not responsible for incorrect prescription information provided by the patient during their visit. Do not stop your medications without consulting your health care provider. Please take the list with you to your next doctor's appointment.[facility] Work Phone: Hospital Discharge instructions Additional Instructions Continue to monitor glucose levels before meals and at bedtime. Keep a record of these and take it with you to your follow-up appointment. Continue hemodialysis treatments as before.[facility] Work Phone: Hospital Discharge instructions Additional Instructions [...] you are always welcome to come back here.[facility] Work Phone: Hospital Discharge instructions Additional Instructions Continue hemodialysis treatments as before Continue to monitor glucose levels as beforeLancaster [facility] Work Phone: Progress note No data available for this section [facility] Progress note Author Bryce Coy [facility] March 02, 2024 1:36pmNote Date/TimeJuly 2023 1:36[place] [address] Nephrology Progress Note Signed Patient: Yoel Tamayo MR#: [id number] : 1985 Acct:[id number] Age/Sex: 38 / M Adm Date: 4 Loc: Room: 4E8639-7 Type: ADM IN Attending Dr: Julio Allen MD Copies to: ~ Date of Service: 03/02/2024 Subjective Subjective Narrative: Mr. Tamayo is a 58-year-old white male with history of ESRD related to DM2 ondialysis on MWF schedule at [place] [facility]. He presented to the hospital with shortness of breath and cough that has been getting worse recently. He reported coughing for the last 3 months that usually clear sputum. No hemoptysis or green sputum. He denies any fever or chills. He was seen at [facility] on 02/28 and was diagnosed with bronchitis and was treated with DuoNeb and was discharged. After initial improvement, patient started to be nauseated and he had numerous episodes of vomiting so he decided tocome to the ER. On arrival, patient was [...] 81 Mg Tab.Chew) 81 mg PO QAM [facility] Stop: 03/01/25 08:59 Last Admin: 03/02/24 08:30 Dose: 81 mg Atorvastatin Calcium (Atorvastatin 80 Mg Tablet) 80 mg PO QPM [facility] Stop: 03/01/25 20:59 Last Admin: 03/01/24 21:28 Dose: 80 mg Calcium Acetate (Calcium Acetate 667 Mg Capsule) 1,334 mg PO TID.WITH.MEALS [facility] Stop: 03/01/25 11:59 Last Admin: 03/02/24 08:30 Dose: 1,334 mg Carvedilol (Carvedilol 25 Mg Tablet) 25 mg PO BID [facility] Stop: 03/01/25 08:59 Last Admin: 03/02/24 08:30 Dose: 25 mg Clopidogrel Bisulfate (Clopidogrel Bisulfate 75 Mg Tablet) 75 mg PO QAM [facility] Stop: 03/01/25 08:59 Last Admin: 03/02/24 08:28 [...] 20 Mg Tablet) 20 mg PO Q48H [facility] Stop: 03/01/25 21:59 Last Admin: 03/01/24 21:27 Dose: 20 mg Furosemide (Furosemide 40 Mg Tablet) 40 mg PO BID@0800,1600 [facility] Stop: 03/01/25 15:59 Last Admin: 03/02/24 08:28 Dose: 40 mg Glucose (Dextrose 40% Gel 15 Gm Tube) 0 gm PO PRN PRN PRN Reason: Hypoglycemia Stop: 03/01/25 06:40 Guaifenesin (Guaifenesin 600 Mg Tab.Er.12h) 1,200 mg PO BID [facility] Stop: 03/01/25 08:59 Last Admin: 03/02/24 08:30 Dose: 1,200 mg Heparin Sodium (Porcine) (Heparin 5,000 Unit/Ml Vial) 5,000 unit SUBCUT Q12HR [facility] Stop: 03/01/25 09:44 Last Admin: 03/02/24 08:31 Dose: 5,000 unit Heparin Sodium (Porcine) (Heparin 10,000 Unit/10 Ml Vial) 2,000 unit IV PRN PRN PRN Reason: Dialysis Stop: 03/02/25 09:02 Last Admin: 03/02/24 09:57 Dose: 2,000 unit Hydralazine HCl (Hydralazine 50 Mg Tablet) 50 mg PO TID [facility] Stop: 03/01/25 13:59 Last Admin: 03/02/24 08:30 Dose: 50 mg Hydralazine HCl (Hydralazine 20 Mg/Ml Vial) 10 mg IV-PUSH Q4H PRN PRN Reason: if SBP > 185 Stop: 03/01/25 16:55 Ampicillin Sodium/Sulbactam Sodium (Unasyn) 1.5 gm in 100 mls @ 200 mls/hr IV DAILY@1700 [facility] Last Admin: 03/01/24 13:23 Dose: 200 mls/hr Sodium Chloride (0.9% Sodium Chloride 1,000 Ml) 1,000 mls @ 0 mls/hr MISCELLANE.Q0M PRN PRN Reason: Dialysis Stop: 03/02/25 09:02 Last Infusion: 03/02/24 10:09 Dose: Infused Insulin Aspart (Insulin Aspart 300 Units/3 Ml Insuln.Pen) 0 units SUBCUT ACHS [facility]; Protocol Stop: 03/01/25 10:29 Last Admin: 03/02/24 08:32 Dose: 9 units Insulin Glargine (Insulin Glargine 300 Units/3 Ml Insuln.Pen) 15 units SUBCUT DAILY [facility] Stop: 03/01/25 10:59 Last Admin: 03/02/24 08:31 Dose: 15 units Isosorbide Mononitrate (Isosorbide Mononitrate 24hr Er 60 Mg Tab.Er.24h) 60 mg PO BID [facility] Stop: 03/01/25 20:59 Last Admin: 03/02/24 08:30 [...] BID.AC.BKFAST.SUPPER RACHELL Stop: 03/01/25 07:29 Last Admin: 03/02/24 08:30 [...] Trenton Salinas M.D.03/01/2024 2:58 PM Dictation Location: [id number] Any impression(s) listed above is documentation that was entered by the reading physician into a diagnostic report(s) for Yoel Tamayo. I have reviewed the report(s) and am incorporating any findings in the treatment plan of this patient where applicable. 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 Blood pressure hasbeen exacerbated by persistent cough. He is on [...] steroids. Patient stated that diabetes is out ofcontrol at home as well. He follow-up with Dr. Stiles. Last time he saw him about 6 months ago. Hewas advised to arrange appointment soon. He is [...] signed by MD Bryce Coy> 03/02/24 1336 [facility] Work Phone: Reason for referral (narrative) Referred by: Mickey SHERIFF MD [facility] Reason for referral (narrative)* Consultation (Routine) - AuthorizedSpecialtyDiagnoses / ProceduresReferred By ContactReferred To ContactCardiology Diagnoses ASHD (arteriosclerotic heart disease) Procedures Follow Up In Cardiology Brianna Gomez DO [address] [place] [address] [address], [address] [address] Brianna Gomez DO [address] [place] [address] [address], [address] [address] Referral IDStatusReasonStart DateExpiration DateVisits RequestedVisits [id number]/16/20244/ [facility] Work Phone: Rexuyg for referral (narrative)No reason for referral information availableGalion Community Hospital Work Phone: Reason for visit NarrativeREFERRED BY DR. COOK, NEED FOR AV FISTULA, VEIN MAPPING [place] [facility] [place] AND REFERRAL BEING [employer] Other Repftt for visit Narrative* CV Imaging (Routine) - AuthorizedSpecialtyDiagnoses / ProceduresReferred By ContactReferred To ContactCardiology Diagnoses Mitral valve insufficiency, unspecified etiology Procedures Transthoracic Echo Limited MS ECHO TRANSTHORC R-T 2D W/WO M-MODE REC F-UP/LMTD MS DOPPLER ECHO COLOR FLOW VELOCITY MAPPING MS DOPPLER ECHO PULSE WAVE W/SPECTRAL F-UP/LMTD STD Brianna Gomez, DO [address] [facility] [address] [place] [address] Phone: tel: fax: Referral IDStatusReasonStart DateExpiration DateVisits RequestedVisits [id number] Perform Procedure [facility] Work Phone: Reason for visit Narrative* Imaging (Emergency) - AuthorizedSpecialtyDiagnoses / ProceduresReferred By ContactReferred To ContactRadiology Diagnoses Nonrheumatic mitral valve regurgitation Procedures CT TAVR full contrast chest abdomen pelvis Chaitanya Saavedra, [employer] [address] [place] [address] Phone: tel: fax: [facility] [address] [facility] [address] [place] [address] Phone: tel: fax: Referral IDStatusReasonStart DateExpiration DateVisits RequestedVisits [id number] Perform Procedure [facility] Work Phone: Family History Unknown Family Member Name Dates Details Family history of hypertensi on: Father(V17.49, Z82.49) Status:ActiveFamily history of liver disease: Mother(V18.59, Z83.79) Status:ActiveFamily history of kidney disease: Mother(V18.69, Z84.1) Status:ActiveHeart problem: Mother Status:ActiveFamily history of hypotension: Mother(V17.49, Z82.49) Status:ActiveFamily history of diabetes mellitus: Mother(V18.0, Z83.3) Status:Active Unknown Family Member Name Dates Details Family history of hypertensi on: Father(V17.49, Z82.49) Status:ActiveFamily history of liver disease: Mother(V18.59, Z83.79) Status:ActiveFamily history of kidney disease: Mother(V18.69, Z84.1) Status:ActiveHeart problem: Mother Status:ActiveFamily history of hypotension: Mother(V17.49, Z82.49) Status:ActiveFamily history of diabetes mellitus: Mother(V18.0, Z83.3) Status:Active Unknown Family Member Name Dates Details Family history of hypertensi on: Father(V17.49, Z82.49) Status:ActiveFamily history of liver disease: Mother(V18.59, Z83.79) Status:ActiveFamily history of kidney disease: Mother(V18.69, Z84.1) Status:ActiveHeart problem: Mother Status:ActiveFamily history of hypotension: Mother(V17.49, Z82.49) Status:ActiveFamily history of diabetes mellitus: Mother(V18.0, Z83.3) Status:Active Relationship Condition Age at Onset Recorded Date/T frances Not Specified Diabetes mellitus Unknown Cerebrovascular accident (CVA)UnknownUnknown Family Member Name Dates Details Family history of hypertensi on: Father(V17.49, Z82.49) Status:ActiveFamily history of liver disease: Mother(V18.59, Z83.79) Status:ActiveFamily history of kidney disease: Mother(V18.69, Z84.1) Status:ActiveHeart problem: Mother Status:ActiveFamily history of hypotension: Mother(V17.49, Z82.49) Status:ActiveFamily history of diabetes mellitus: Mother(V18.0, Z83.3) Status:Active Unknown Family Member Name Dates Details Family history of hypertensi on: Father(V17.49, Z82.49) Status:ActiveFamily history of liver disease: Mother(V18.59, Z83.79) Status:ActiveFamily history of kidney disease: Mother(V18.69, Z84.1) Status:ActiveHeart problem: Mother Status:ActiveFamily history of hypotension: Mother(V17.49, Z82.49) Status:ActiveFamily history of diabetes mellitus: Mother(V18.0, Z83.3) Status:Active Relationship Condition Age at Onset Recorded Date/T frances Not Specified Diabetes mellitus Unknown Disorder of liverUnknownfatherCerebrovascular accident (CVA)UnknownHypertension UnknownIrritable bowel syndromeUnknownUnknown Family Member Name Dates Details Family history of hypertensi on: Father(V17.49, Z82.49) Status:ActiveFamily history of liver disease: Mother(V18.59, Z83.79) Status:ActiveFamily history of kidney disease: Mother(V18.69, Z84.1) Status:ActiveHeart problem: Mother Status:ActiveFamily history of hypotension: Mother(V17.49, Z82.49) Status:ActiveFamily history of diabetes mellitus: Mother(V18.0, Z83.3) Status:Active Unknown Family Member Name Dates Details Family history of hypertensi on: Father(V17.49, Z82.49) Status:ActiveFamily history of liver disease: Mother(V18.59, Z83.79) Status:ActiveFamily history of kidney disease: Mother(V18.69, Z84.1) Status:ActiveHeart problem: Mother Status:ActiveFamily history of hypotension: Mother(V17.49, Z82.49) Status:ActiveFamily history of diabetes mellitus: Mother(V18.0, Z83.3) Status:Active Unknown Family Member Name Dates Details Family history of hypertensi on: Father(V17.49, Z82.49) Status:ActiveFamily history of liver disease: Mother(V18.59, Z83.79) Status:ActiveFamily history of kidney disease: Mother(V18.69, Z84.1) Status:ActiveHeart problem: Mother Status:ActiveFamily history of hypotension: Mother(V17.49, Z82.49) Status:ActiveFamily history of diabetes mellitus: Mother(V18.0, Z83.3) Status:Active Unknown Family Member Name Dates Details Family history of hypertensi on: Father(V17.49, Z82.49) Status:ActiveFamily history of liver disease: Mother(V18.59, Z83.79) Status:ActiveFamily history of kidney disease: Mother(V18.69, Z84.1) Status:ActiveHeart problem: Mother Status:ActiveFamily history of hypotension: Mother(V17.49, Z82.49) Status:ActiveFamily history of diabetes mellitus: Mother(V18.0, Z83.3) Status:Active Unknown Family Member Name Dates Details Family history of hypertensi on: Father(V17.49, Z82.49) Status:ActiveFamily history of liver disease: Mother(V18.59, Z83.79) Status:ActiveFamily history of kidney disease: Mother(V18.69, Z84.1) Status:ActiveHeart problem: Mother Status:ActiveFamily history of hypotension: Mother(V17.49, Z82.49) Status:ActiveFamily history of diabetes mellitus: Mother(V18.0, Z83.3) Status:Active Unknown Family Member Name Dates Details Family history of hypertensi on: Father(V17.49, Z82.49) Status:ActiveFamily history of liver disease: Mother(V18.59, Z83.79) Status:ActiveFamily history of kidney disease: Mother(V18.69, Z84.1) Status:ActiveHeart problem: Mother Status:ActiveFamily history of hypotension: Mother(V17.49, Z82.49) Status:ActiveFamily history of diabetes mellitus: Mother(V18.0, Z83.3) Status:Active Unknown Family Member Name Dates Details Family history of hypertensi on: Father(V17.49, Z82.49) Status:ActiveFamily history of liver disease: Mother(V18.59, Z83.79) Status:ActiveFamily history of kidney disease: Mother(V18.69, Z84.1) Status:ActiveHeart problem: Mother Status:ActiveFamily history of hypotension: Mother(V17.49, Z82.49) Status:ActiveFamily history of diabetes mellitus: Mother(V18.0, Z83.3) Status:Active Relationship Condition Age at Onset Recorded Date/T frances Not Specified Disorder of liver Unknown Diabetes mellitusUnknownfatherHypertensionUnknownIrritable bowel syndromeUnknown Cerebrovascular accident (CVA)UnknownDiverticulitisUnknownUnknown Family Member Name Dates Details Family history of liver dise ase: Mother(V18.59, Z83.79) Status:ActiveFamily history of hypertension: Father(V17.49, Z82.49) Status:ActiveFamily history of kidney disease: Mother(V18.69, Z84.1) Status:ActiveHeart problem: Mother Status:ActiveFamily history of hypotension: Mother(V17.49, Z82.49) Status:ActiveFamily history of diabetes mellitus: Mother(V18.0, Z83.3) Status:Active Unknown Family Member Name Dates Details Family history of diabetes m ellitus: Mother(V18.0, Z83.3) Status:ActiveFamily history of hypotension: Mother(V17.49, Z82.49) Status:ActiveHeart problem: Mother Status:ActiveFamily history of kidney disease: Mother(V18.69, Z84.1) Status:ActiveFamily history of liver disease: Mother(V18.59, Z83.79) Status:ActiveFamily history of hypertension: Father(V17.49, Z82.49) Status:Active Unknown Family Member Name Dates Details Family history of hypertensi on: Father(V17.49, Z82.49) Status:ActiveFamily history of liver disease: Mother(V18.59, Z83.79) Status:ActiveFamily history of kidney disease: Mother(V18.69, Z84.1) Status:ActiveHeart problem: Mother Status:ActiveFamily history of hypotension: Mother(V17.49, Z82.49) Status:ActiveFamily history of diabetes mellitus: Mother(V18.0, Z83.3) Status:Active Unknown Family Member Name Dates Details Family history of hypertensi on: Father(V17.49, Z82.49) Status:ActiveFamily history of liver disease: Mother(V18.59, Z83.79) Status:ActiveFamily history of kidney disease: Mother(V18.69, Z84.1) Status:ActiveHeart problem: Mother Status:ActiveFamily history of hypotension: Mother(V17.49, Z82.49) Status:ActiveFamily history of diabetes mellitus: Mother(V18.0, Z83.3) Status:Active Unknown Family Member Name Dates Details Family history of hypertensi on: Father(V17.49, Z82.49) Status:ActiveFamily history of liver disease: Mother(V18.59, Z83.79) Status:ActiveFamily history of kidney disease: Mother(V18.69, Z84.1) Status:ActiveHeart problem: Mother Status:ActiveFamily history of hypotension: Mother(V17.49, Z82.49) Status:ActiveFamily history of diabetes mellitus: Mother(V18.0, Z83.3) Status:Active Unknown Family Member Name Dates Details Family history of hypertensi on: Father(V17.49, Z82.49) Status:ActiveFamily history of liver disease: Mother(V18.59, Z83.79) Status:ActiveFamily history of kidney disease: Mother(V18.69, Z84.1) Status:ActiveHeart problem: Mother Status:ActiveFamily history of hypotension: Mother(V17.49, Z82.49) Status:ActiveFamily history of diabetes mellitus: Mother(V18.0, Z83.3) Status:Active Relationship Condition Age at Onset Recorded Date/T frances Not Specified Disorder of liver Unknown Diabetes mellitusUnknownfatherHypertensionUnknownIrritable bowel syndromeUnknown Cerebrovascular accident (CVA)UnknownDiverticulitisUnknownfatherHistory of strokeUnknownHeart diseaseUnknownHypertensionUnknownFamily history of mental disorderUnknownNot SpecifiedHypertensionUnknown Relationship Condition Age at Onset Recorded Date/T frances Not Specified Disorder of liver Unknown Diabetes mellitusUnknownMalignant neoplasm of pancreasUnknownfather DiverticulitisUnknownHypertensionUnknownIrritable bowel syndromeUnknown Cerebrovascular accident (CVA)UnknownHeart diseaseUnknownHistory of stroke UnknownFamily history of mental disorderUnknown Relationship Condition Age at Onset Recorded Date/T frances mother Disorder of liver Unknown Diabetes mellitusUnknownMalignant neoplasm of pancreasUnknownfather DiverticulitisUnknownHypertensionUnknownIrritable bowel syndromeUnknown Cerebrovascular accident (CVA)UnknownHeart diseaseUnknownHistory of stroke UnknownFamily history of mental disorderUnknown Chief Complaint and Reason for Visit Chief Complaint CHF, NStEMI, PCI R80.9 N04.9 I12.9 N18.30 N25.81 E11.22 I10 E10.65 Chief Complaint I10 E10. d64.9:R80.9;N04.9;I12.9;D63.1;N18.30;N25.81;E11.2l cp hx heart attack Chief Complaint I10 E10. d64.9:R80.9;N04.9;I12.9;D63.1;N18.30;N25.81;E11.2l cp hx heart attack N18.30 R80.9 I12.9 Chief Complaint I10 d64.9:R80.9;N04.9;I12.9;D63.1;N18.30;N25.81;E11.2l cp hx heart attack N18.30 R80.9 I12.9 MONOCLONALReason for VisitMGUS (monoclonal gammopathy of unknown significance) Chief Complaint I10 E10.65 d64.9:R80.9;N04.9;I12.9;D63.1;N18.30;N25.81;E11.2l cp hx heart attack N18.30 R80.9 I12.9 MONOCLONAL d47.2Reason for VisitMGUS (monoclonal gammopathy of unknown significance) Chief Complaint I10 E10.65 d64.9:R80.9;N04.9;I12.9;D63.1;N18.30;N25.81;E11.2l cp hx heart attack N18.30 R80.9 I12.9 d47.2 fever,post biopsy MONOCLONALReason for VisitMGUS (monoclonal gammopathy of unknown significance) Chief Complaint I10 E10.65 d64.9:R80.9;N04.9;I12.9;D63.1;N18.30;N25.81;E11.2l cp hx heart attack N18.30 R80.9 I12.9 d47.2 fever,post biopsy MONOCLONAL chest painReason for VisitMGUS (monoclonal gammopathy of unknown significance) Chief Complaint cp hx heart attack N18.30 R80.9 I12.9 d47.2 fever,post biopsy MONOCLONAL chest pain profuse sweatingReason for VisitMGUS (monoclonal gammopathy of unknown significance) Chief Complaint cp hx heart attack N18.30 R80.9 I12.9 d47.2 fever,post biopsy MONOCLONAL chest pain profuse sweating labsReason for VisitMGUS (monoclonal gammopathy of unknown significance) Chief Complaint N18.30 R80.9 I12.9 d47.2 fever,post biopsy MONOCLONAL chest pain profuse sweating labs Low blood sugarReason for VisitMGUS (monoclonal gammopathy of unknown significance) Chief Complaint fever,post biopsy MONOCLONAL chest pain profuse sweating labs Low blood sugar i50.9 i25.10 chest pain with syncopeReason for VisitMGUS (monoclonal gammopathy of unknown significance) Chief Complaint fever,post biopsy MONOCLONAL chest pain profuse sweating labs Low blood sugar i50.9 i25.10 chest pain with syncopeReason for VisitMGUS (monoclonal gammopathy of unknown significance) Acute congestive heart failure PINO (acute kidney injury) Anemia CAD (coronary artery disease) Chest pain Chronic kidney disease, stage IV (severe) CKD (chronic kidney disease) Diabetes HTN (hypertension) Syncope Uncontrolled hypertension Chief Complaint MONOCLONAL chest pain profuse sweating labs Low blood sugar i50.9 i25.10 chest pain with syncope D64.9 N18.4 R80.9 I12.9 D63.1 N25.81 E11.22Reason for VisitMGUS (monoclonal gammopathy of unknown significance) Acute congestive heart failure PINO (acute kidney injury) Anemia CAD (coronary artery disease) Chest pain Chronic kidney disease, stage IV (severe) CKD (chronic kidney disease) Diabetes HTN (hypertension) Syncope Uncontrolled hypertension Chief Complaint profuse sweating labs Low blood sugar i50.9 i25.10 chest pain with syncope D64.9 N18.4 R80.9 I12.9 D63.1 N25.81 E11.22 MONOCLONAL n18.4 r80.9 i12.9 d63.1 n25.81 e11.22Reason for VisitAcute congestive heart failure PINO (acute kidney injury) Anemia CAD (coronary artery disease) Chest pain Chronic kidney disease, stage IV (severe) CKD (chronic kidney disease) Diabetes HTN (hypertension) Syncope Uncontrolled hypertension MGUS (monoclonal gammopathy of unknown significance) Chief Complaint profuse sweating labs Low blood sugar i50.9 i25.10 chest pain with syncope D64.9 N18.4 R80.9 I12.9 D63.1 N25.81 E11.22 n18.4 r80.9 i12.9 d63.1 n25.81 e11.22 MONOCLONALReason for VisitAcute congestive heart failure PINO (acute kidney injury) [...] n18.4 r80.9 i12.9 d63.1 n25.81 e11.22 MONOCLONAL ESRDReason for VisitAcute congestive heart failure PINO (acute kidney injury) Anemia CAD (coronary artery disease) Chest pain Chronic kidney disease, stage IV (severe) CKD (chronic kidney disease) Diabetes HTN (hypertension) Syncope Uncontrolled hypertension MGUS (monoclonal gammopathy of unknown significance) Chief Complaint labs Low blood sugar i50.9 i25.10 chest pain with syncope D64.9 N18.4 R80.9 I12.9 D63.1 N25.81 E11.22 n18.4 r80.9 i12.9 d63.1 n25.81 e11.22 MONOCLONAL ESRD ESRDReason for VisitAcute congestive heart failure PINO (acute kidney injury) [...] d63.1 n25.81 e11.22 MONOCLONAL ESRD ESRD Chest painReason for VisitAcute congestive heart failure PINO (acute kidney injury) [...] d63.1 n25.81 e11.22 MONOCLONAL ESRD ESRD Chest painReason for VisitAcute congestive heart failure PINO (acute kidney injury) [...] Chest pain D63.1 E11.22 I12.9 N18.4 N25.81 R80.9Reason for VisitAcute congestive heart failure PINO (acute kidney injury) [...] CHF, CAD, R80.9 N18.4 I12.9 D63.1 N25.81 E11.22Reason for VisitMGUS (monoclonal gammopathy of unknown significance) Stage 3b chronic kidney disease (CKD) Anemia Chest pain CKD (chronic kidney disease) Diabetes Triple vessel disease of the heart Chief Complaint n18.4 r80.9 i12.9 d6 3.1 n25.81 e11.22 MONOCLONAL ESRD ESRD Chest pain D63.1 E11.22 I12.9 N18.4 N25.81 R80.9 CHF, CAD, R80.9 N18.4 I12.9 D63.1 N25.81 E11.22 N18.5 I12.9 E87.5 D63.1 N25.81 R80.9 E11.22Reason for VisitMGUS (monoclonal gammopathy of unknown significance) Stage 3b chronic kidney disease (CKD) Anemia Chest pain CKD (chronic kidney disease) Diabetes Triple vessel disease of the heart Chief Complaint n18.4 r80.9 i12.9 d6 3.1 n25.81 e11.22 MONOCLONAL ESRD ESRD Chest pain D63.1 E11.22 I12.9 N18.4 N25.81 R80.9 CHF, CAD, R80.9 N18.4 I12.9 D63.1 N25.81 E11.22 N18.5 I12.9 E87.5 D63.1 N25.81 R80.9 E11.22 n18.6Reason for VisitMGUS (monoclonal gammopathy of unknown significance) Stage 3b chronic kidney disease (CKD) Anemia Chest pain CKD (chronic kidney disease) Diabetes Triple vessel disease of the heart Chief Complaint n18.4 r80.9 i12.9 d6 3.1 n25.81 e11.22 MONOCLONAL ESRD ESRD Chest pain D63.1 E11.22 I12.9 N18.4 N25.81 R80.9 CHF, CAD, R80.9 N18.4 I12.9 D63.1 N25.81 E11.22 N18.5 I12.9 E87.5 D63.1 N25.81 R80.9 E11.22 n18.6 ESRDReason for VisitMGUS (monoclonal gammopathy of unknown significance) Stage 3b chronic kidney disease (CKD) Anemia Chest pain CKD (chronic kidney disease) Diabetes Triple vessel disease of the heart Chief Complaint Chest pain D63.1 E11.22 I12.9 N18.4 N25.81 R80.9 CHF, CAD, R80.9 N18.4 I12.9 D63.1 N25.81 E11.22 N18.5 I12.9 E87.5 D63.1 N25.81 R80.9 E11.22 n18.6 ESRD ESRDReason for VisitAnemia Chest pain CKD (chronic kidney disease) Diabetes Triple vessel disease of the heart Chief Complaint Chest pain D63.1 E11.22 I12.9 N18.4 N25.81 R80.9 CHF, CAD, R80.9 N18.4 I12.9 D63.1 N25.81 E11.22 N18.5 I12.9 E87.5 D63.1 N25.81 R80.9 E11.22 n18.6 ESRD ESRD ESRD N18.5 I12.9 E87.5 D63.1 N25.81 R80.9 E11.22 left arm injury-recent fistula placedReason for VisitAnemia Chest pain CKD (chronic kidney disease) Diabetes Triple vessel disease of the heart Chief Complaint CHF, CAD, R80.9 N18. 4 I12.9 D63.1 N25.81 E11.22 CHF, CAD N18.5 I12.9 E87.5 D63.1 N25.81 R80.9 E11.22 n18.6 ESRD ESRD ESRD N18.5 I12.9 E87.5 D63.1 N25.81 R80.9 E11.22 left arm injury-recent fistula placed cp r/o ACF, Uncontrolled HTNReason for VisitAnemia CAD (coronary artery disease) Chest pain Chronic [...] ACF, Uncontrolled HTN AFHD, CHF, Hx of MIReason for VisitAnemia CAD (coronary artery disease) Chest pain Chronic [...] ACF, Uncontrolled HTN AFHD, CHF, Hx of [place] AFHD, CHF, Hx of MIReason for VisitAnemia CAD (coronary artery disease) Chest pain Chronic kidney disease, stage IV (severe) Diabetes GERD (gastroesophageal reflux disease) History of placement of stent in LAD coronary artery Hypertension Kidney failure Chief Complaint ESRD ESRD ESRD N18.5 I12.9 E87.5 D63.1 N25.81 R80.9 E11.22 left arm injury-recent fistula placed cp r/o ACF, Uncontrolled HTN AFHD, CHF, Hx of VA AFHD, CHF, Hx of VA N18.6 I12.9 E87.5 D63.1 N25.81 R80.9 E11.22 MONOCLONALReason for VisitAnemia CAD (coronary artery disease) Chest pain Chronic kidney disease, stage IV (severe) Diabetes GERD (gastroesophageal reflux disease) History of placement of stent in LAD coronary artery Hypertension Kidney failure MGUS (monoclonal gammopathy of unknown significance) Stage 3b chronic kidney disease (CKD) Chief Complaint cp r/o ACF, Uncontro lled HTN AFHD, CHF, Hx of VA AFHD, CHF, Hx of VA N18.6 I12.9 E87.5 D63.1 N25.81 R80.9 E11.22 MONOCLONALReason for VisitAnemia CAD (coronary artery disease) Chest pain Chronic kidney disease, stage IV (severe) Diabetes GERD (gastroesophageal reflux disease) History of placement of stent in LAD coronary artery Hypertension Kidney failure MGUS (monoclonal gammopathy of unknown significance) Stage 3b chronic kidney disease (CKD) Chief Complaint AFHD, CHF, Hx of VA AFHD, CHF, Hx of VA N18.6 I12.9 E87.5 D63.1 N25.81 R80.9 E11.22 MONOCLONAL ESRDReason for VisitMGUS (monoclonal gammopathy of unknown significance) Stage 3b chronic kidney disease (CKD) Chief Complaint MONOCLONAL T82.898A ESRD I82.898AReason for VisitMGUS (monoclonal gammopathy of unknown significance) Stage 3b chronic kidney disease (CKD) Chief Complaint MONOCLONAL T82.898A ESRD I82.898A ESRDReason for VisitMGUS (monoclonal gammopathy of unknown significance) Stage 3b chronic kidney disease (CKD) Chief Complaint T82.898A ESRD I82.898A ESRD N18.6 Z99.2 Chief Complaint I82.898A ESRD N18.6 Z99.2 Chest PainReason for VisitCAD (coronary artery disease) Chest pain, rule out acute myocardial infarction Diabetes mellitus ESRD (end stage renal disease) on dialysis Chief Complaint I82.898A ESRD N18.6 Z99.2 Chest Pain AVFReason for VisitChest pain, rule out acute myocardial infarction Chief Complaint Tbh/ 6 Month Check U p 1 Month Follow Up Chest Pain Issues With Fistula; Gfs Left Arm At 8:3 AVF MONOCLONAL Follow Up Chest painReason for VisitChest pain, rule out acute myocardial infarction Chief Complaint 1 Month Follow Up Chest Pain Issues With Fistula; Gfs Left Arm At 8:3 AVF MONOCLONAL Follow Up Chest pain MGUS 3 month follow; Fistula Left Arm esrd esrdReason for VisitESRD (end stage renal disease) on dialysis Chest pain, rule out [...] Left Arm esrd esrd 3 month follow upReason for VisitChest pain, rule out acute myocardial infarction MGUS [...] esrd esrd 3 month follow up ESRD ESRDReason for VisitMGUS (monoclonal gammopathy of unknown significance) Encounter for [...] ESRD ESRD F/U REV LEFT ARM AVF 11/26/23Reason for VisitEncounter for palliative care MGUS (monoclonal gammopathy of [...] F/U REV LEFT ARM AVF 11/26/23 Dialysis LabelsReason for VisitEncounter for palliative care MGUS (monoclonal gammopathy of unknown significance) AV fistula stenosis Acute exacerbation of chronic obstructive airways disease ASHD (arteriosclerotic heart disease) ESRD (end stage renal disease) on dialysis Primary hypertension Type 1 diabetes mellitus with hyperglycemia AV fistula Chief Complaint F/U REV LEFT ARM AVF 11/26/23 Dialysis Labels sobReason for VisitAV fistula Acute hypoxic respiratory failure AV fistula ESRD (end stage renal disease) on dialysis HCAP (healthcare-associated pneumonia) Type 1 diabetes mellitus with hyperglycemia Chief Complaint F/U REV LEFT ARM AVF 11/26/23 Dialysis Labels sob sobReason for VisitAV fistula Acute exacerbation of chronic obstructive airways disease Acute hypoxic respiratory failure Anemia in chronic kidney disease AV fistula ESRD (end stage renal disease) on dialysis HCAP (healthcare-associated pneumonia) Hypertensive CKD, ESRD on dialysis Secondary hyperparathyroidism Type 1 diabetes mellitus with hyperglycemia Chief Complaint F/U REV LEFT ARM AVF 11/26/23 Dialysis Labels sob sob Amb Documentation sobReason for VisitAV fistula Acute exacerbation of chronic obstructive airways disease Acute hypoxic respiratory failure Anemia in chronic kidney disease AV fistula ESRD (end stage renal disease) on dialysis HCAP (healthcare-associated pneumonia) Hypertensive CKD, ESRD on dialysis Secondary hyperparathyroidism Type 1 diabetes mellitus with hyperglycemia Acute bronchitis Hypoxemia Chief Complaint F/U REV LEFT ARM AVF 11/26/23 Dialysis Labels sob sob Amb Documentation sob sobReason for VisitAV fistula Acute exacerbation of chronic obstructive airways [...] sob sob [facility] Documentation sob sob [facility], pneumoniaReason for VisitAV fistula Acute exacerbation of chronic obstructive airways [...] sob sob [facility], pneumonia medication concerns, difficulty breathingReason for VisitAcute exacerbation of chronic obstructive airways disease AV [...] 12:25pm Type 1 diabetes mellitus June 22, 024 12:25pm Acute bacterial bronchitis August 28, 2024 1:27am Anemia of renal disease August 28 1:27am CAP (community acquired pneumonia) [facility] 2024 1:27am Chronic combined systolic (c ongestive) [...] 2024 12:25pm Hypertensive CKD, ESRD on dialysis [facility] 2023 12:25pm Hypoglycemia June 22, 2024 1 [...] 1 :27am Hypertensive CKD, ESRD on dialysis Aug 2024 1:27am Pulmonary edema August 28, 2024 [...] 2024 1 :27am ASHD (arteriosclerotic heart disease) [facility] 2024 1:01pm End-stage renal disease (ESRD) August [...] 2024 1:27am Hypertensive CKD, ESRD on dialysis [facility] 2024 1:27am Secondary hyperparathyroidism August 282024 1:27am Acute bacterial bronchitis August 28, 2024 1:27am Cough with hemoptysis August 28, 2024 1:27am CAP (community acquired pneumonia) Aug 2024 1:27am Chronic 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 August 28, 2024 1:27am Hypertension August 28, 2024 1 :27am Pulmonary edema August 28, 2024 1 :27am Type 1 diabetes mellitus August 28, 2 025 1:27am Type 2 diabetes mellitus wit h diabetic chronic kidney disease August 28, 2024 1:27am ASHD (arteriosclerotic heart disease) [facility] 2024 1:01pm ESRD on hemodialysis September 02, 2024 1:01pm Insomnia September 02, 2024 1 :01pm Primary hypertension September 02, 2024 1:01pm Wellness examination September 02, 2024 1:01pm CAP (community acquired pneumonia) [facility] 2024 1:01pm Nicotine addiction September 02, 2024 1 :01pm Anemia of renal disease September 16 1:09am CAP (community acquired pneumonia) 2024 1:09am Constipation September 16, 2024 1 [...] 2024 1:27am Hypertensive CKD, ESRD on dialysis [facility] 2024 1:27am Secondary hyperparathyroidism August 282024 1:27am CAP (community acquired pneumonia) [facility] 2024 1:27am Chronic 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 August 28, 2024 1:27am Hypertension August 28, 2024 1 :27am Pulmonary edema August 28, 2024 1 :27am Type 1 diabetes mellitus August 28, 2 025 1:27am Type 2 diabetes mellitus wit h diabetic chronic kidney disease August 28, 2024 1:27am ASHD (arteriosclerotic heart disease) [facility] 2024 1:01pm Insomnia September 02, 2024 1 :01pm Primary hypertension September 02, 2024 1:01pm Wellness examination September 02, 2024 1:01pm ESRD on hemodialysis September 02, 2024 1:01pm CAP (community acquired pneumonia) [facility] ry 2024 1:01pm Nicotine addiction September 02, 2024 1 :01pm Anemia of renal disease September 16 1:09am CAP (community acquired pneumonia) [facility] 2024 1:09am Constipation September 16, 2024 1 :09am COVID-19 September 16, 2024 1 :09am ESRD on hemodialysis September 16, 2024 1:09am Hypertensive CKD, ESRD on dialysis [facility] 2024 1:09am Secondary hyperparathyroidism September 162024 [...] 2024 1:27am Hypertensive CKD, ESRD on dialysis [facility] 2024 1:27am Secondary hyperparathyroidism August 282024 1:27am CAP (community acquired pneumonia) Aug 2024 1:27am Chronic 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 August 28, 2024 1:27am Hypertension August 28, 2024 1 :27am Pulmonary edema August 28, 2024 1 :27am Type 1 diabetes mellitus August 28, 025 1:27am Type 2 diabetes mellitus wit h diabetic chronic kidney disease August 28, 2024 1:27am ASHD (arteriosclerotic heart disease) [facility] 2024 1:01pm Insomnia September 02, 2024 1 :01pm Primary hypertension September 02, 2024 1:01pm Wellness examination September 02, 2024 1:01pm ESRD on hemodialysis September 02, 2024 1:01pm CAP (community acquired pneumonia) [facility] 2024 1:01pm Nicotine addiction September 02, 2024 1 :01pm Anemia of renal disease September 16 1:09am CAP (community acquired pneumonia) [facility] 2024 1:09am Constipation September 16, 2024 1 :09am COVID-19 September 16, 2024 1 :09am ESRD on hemodialysis September 16, 2024 1:09am Hypertensive CKD, ESRD on dialysis [facility] 2024 1:09am Secondary hyperparathyroidism September 162024 1:09am ASHD (arteriosclerotic heart disease) [facility] 2024 12:55pm Chronic bronchitis, mucopurulent Februar y [...] 16 1:09am CAP (community acquired pneumonia) [facility] 2024 1:09am Constipation September 16, 2024 1 :09am COVID-19 September 16, 2024 1 :09am ESRD on hemodialysis September 16, 2024 1:09am Hypertensive CKD, ESRD on dialysis [facility] 2024 1:09am Secondary hyperparathyroidism September 162024 1:09am [...] 2024 1:27am Hypertensive CKD, ESRD on dialysis [facility] 2024 1:27am Secondary hyperparathyroidism August 282024 1:27am CAP (community acquired pneumonia) [facility] 2024 1:27am Chronic 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 August 28, 2024 1:27am Hypertension August 28, 2024 1 :27am Pulmonary edema August 28, 2024 1 :27am Type 1 diabetes mellitus August 28 025 1:27am Type 2 diabetes mellitus wit h diabetic chronic kidney disease August 28, 2024 1:27am ASHD (arteriosclerotic heart disease) [facility] 2024 1:01pm Insomnia September 02, 2024 1 :01pm Primary hypertension September 02, 2024 1:01pm Wellness examination September 02, 2024 1:01pm ESRD on hemodialysis September 02, 2024 1:01pm CAP (community acquired pneumonia) [facility] 2024 1:01pm Nicotine addiction September 02, 2024 1 :01pm Anemia of renal disease September 16 1:09am CAP (community acquired pneumonia) [facility] 2024 1:09am Constipation September 16, 2024 1 :09am COVID-19 September 16, 2024 1 :09am ESRD on hemodialysis September 16, 2024 1:09am Hypertensive CKD, ESRD on dialysis [facility] 2024 1:09am Secondary hyperparathyroidism September 162024 [...] 01, 2024 10:56pm ASHD (arteriosclerotic heart disease) [facility] y 2024 2:40pm Chronic bronchitis, mucopurulent December [...] f/u January 12, 2025 2:40p m hx VA, ashd, mixed hyperlipidemia January 192024 8:01am hx VA, ashd, mixed hyperlipidemia January 212024 10:39am Reason [...] 10:56pm Type 1 diabetes mellitus with hyperglyce [facility] November 01, 2024 10:56pm ESRD (end stage [...] f/u January 12, 2025 2:40p m hx VA, ashd, mixed hyperlipidemia January 192024 8:01am Chief Complaint Admit Date 3 month f/u January 12, 2025 2:40p m hx VA, ashd, mixed hyperlipidemia January 192024 8:01am hx VA, ashd, mixed hyperlipidemia January 212024 10:39am C/O PAIN IN ACCESS ARM; GFS L ARM 10A [place] 2024 10:44am 18.6 April 01, 2025 10 :45am Reason for Visit Admit Date ASHD (arteriosclerotic heart disease) Jenn y 2024 2:40pm Chronic bronchitis, mucopurulent December [...] 192024 10:44am Chief Complaint Admit Date hx VA, ashd, mixed hyperlipidemia January 192024 8:01am hx VA, ashd, mixed hyperlipidemia January 212024 10:39am C/O [...] History of end stage renal disease [facility] 2024 5:24am Hypoglycemia May 06, 2025 5:24am Type I diabetes mellitus with hypoglycem ia May 06, 2025 5:24am Chief Complaint Admit Date C/O PAIN IN ACCESS ARM; GFS L ARM 10A [facility] 2024 10:44am 18.6 April 01, 2025 10 :45am ESRD April 13, 2025 11 :42am Amb Documentation April 14, 2025 10 :11am [facility] ER f/u April 22, 2025 10:32am low blood sugar May 06, 2025 5:24am Blood sugar/Pressure issues May 7:52pm Chief Complaint Admit Date C/O PAIN IN ACCESS ARM; GFS L ARM 10A [facility] 2024 10:44am 18.6 April 01, 2025 10 [...] 5:24am History of end stage renal disease [facility] 2024 5:24am Hypoglycemia May 06, 2025 5:24am [...] 5:24am History of end stage renal disease [facility] 2024 5:24am Hypoglycemia May 06, 2025 5:24am [...] ia May 31, 2025 8:59pm Advance Directives Advance Directive Response Recorded Date/ Time Advance Directives No September 11, 2021 10:36pm Advance Directive Response Recorded Date/ Time Advance Directives No September 11, 2021 9:36pm Chief Complaint * YOEL TAMAYO is being seen for a 12 week follow-up of. * 37-year-old type I diabetic returns for follow-up. He has had sporadic anginal discomfort. He is now had progressive kidney dysfunction most recent creatinine is 3.5 and is followed by nephrology. Hesustained anterior VA in October 2021 with primary revascularization of the LAD with residual circumflex and RCA disease. His left ventricular function at that time was 40 to 45%. He has underlying type 1 diabetes, progressive/chronic kidney disease as noted, ongoing tobacco use, class II angina. * Is [place] [employer] is class IIc and remains hemodynamically stable * Recommendations: Tobacco cessation counseling, initiate isosorbide 30 mg daily for known disease and angina complaints, limited echo to assess LV function, obtain lipid panel and high-sensitivity CRPwe will follow-up again in 6 months * YOEL TAMAYO is being seen for follow-up of a hospitalization for chest pain. [facility]. * 37-year-old gentleman returns following recent hospitalization for unstable angina and hypertensionand anxiety. We escalated his isosorbide and hydralazine and is feeling much better. * Patient has a prior history of anterior VA in October 2021 with primary revascularization of [...] in 3 to 4 months. * YOEL TAMAYO is being seen for follow-up of a hospitalization for chest pain. [facility]. * 37-year-old gentleman returns following recent hospitalization for unstable angina and hypertensionand anxiety. We escalated his isosorbide and hydralazine and is feeling much better. * Patient has a prior history of anterior VA in October 2021 with primary revascularization of [...] in 3 to 4 months. * YOEL TAMAYO is being seen for follow-up of a hospitalization for f/u cath results. * 37-year-old gentleman returns for follow-up following recent completion of his revascularization procedures, most recently the proximal RCA with drug-eluting stents. He has had previous anterior VA with revascularization of the LAD. He has [...] DAPT, follow-up in 6 months * YOEL TAMAYO is being seen for follow-up of a hospitalization for f/u cath results. * 37-year-old gentleman returns for follow-up following recent completion of his revascularization procedures, most recently the proximal RCA with drug-eluting stents. He has had previous anterior VA with revascularization of the LAD. He has [...] 6 months Summary Purpose Reason for Referral SpecialtyDiagnoses / ProceduresReferred By ContactReferred To Contact Diagnoses Internal derangement of left shoulder Procedures MR shoulder left wo IV contrast Nelida Carrington [employer] [address] [place] [address] Referral IDStatusReasonStart DateExpiration DateVisits RequestedVisits [id number] Review Reason Patient c/o Peyronie 's disease, decreased libido and ED Diagnosis 1 Peyronie's disease ( N48.6) Diagnosis 2 Decreased libido (R6 8.82) Diagnosis 3 Erectile dysfunction due to arterial insufficiency (N52.01) [facility] Referring Provider First Name Eusebio Referring Provider Last Name Marshall Referring Provider Specialty Internal Me dicine Referred Organization [facility] Referred Provider Mickey Sheriff Referred Address [address] [facility] [address] [place], [place],[address] Referred Provider Specialty Urology Referral Priority Routine General Notes Mr. Tamayo is req uesting a Urology referral for [...] FOR VISIT (unrecogniz ed section and content) ReasonCommentsFollow-upBP check med changes [facility] [place]ReasonComments New Patient VisitSpecialtyDiagnoses / ProceduresReferred By ContactReferred To ContactCardiology Diagnoses Nonrheumatic mitral valve regurgitation Brianna Gomez, DO [address] [facility] [address], [address] [place] [address] Phone: tel: fax: [place] [address] [place] [id number] Phone: tel: fax: Referral IDStatusReasonStart DateExpiration DateVisits RequestedVisits [id number] Specialty Services Required [id number] Follow up for Coronary Artery DiseaseSpecialtyDiagnoses / ProceduresReferred By ContactReferred To Contact Cardiology Diagnoses ASHD (arteriosclerotic heart disease) Procedures Follow Up In Cardiology Brianna Gomez, [address], [place] [address] Phone: tel: fax: Brianna Gomez, [address], [place] [address] Phone: tel: fax: Referral IDStatusReasonStart DateExpiration DateVisits RequestedVisits [id number] Foot CareDm nail careReasonCommentsFollow-up6m follow up for Arteriosclerotic heart disease SpecialtyDiagnoses / ProceduresReferred By ContactReferred To ContactCardiology Diagnoses ASHD (arteriosclerotic heart disease) Procedures Follow Up In Cardiology Brianna Gomez, [address] [place] [address] [address], [place] [phone] Phone: tel: fax: Brianna Gomez, [address] [place] [address] 2, [place] [phone] Phone: tel: fax: Referral IDStatusReasonStart DateExpiration DateVisits RequestedVisits [id number]/[id number]-bl9 months SpecialtyDiagnoses / ProceduresReferred By ContactReferred To ContactCardiology Diagnoses ASHD (arteriosclerotic heart disease) Procedures Follow Up In Cardiology Brianna Gomez, [address] [facility] [address], [place] [phone] Phone: tel: fax: Brianna Gomez, DO [address] [facility] [address], [address] [address] Phone: tel: fax: Referral IDStatusReasonStart DateExpiration DateVisits RequestedVisits [id number] [id number] Foot CareDm JdmtwAmhsngQusfkmrwEhjlxq-ux5xUyokzmAayoffvdDsznmz-ceFgzacyjKgspcnwzCtejpc with fistula; GFS Left arm at 8:01qaAufjd3 month Follow uplab resultsTBH/ 6 Month Check Up2 WK S/P FISTULOGRAM; GFS LEFT ARM 07/02/23HAVING ARTERIAL SPASMS DURING TREATMENT AND COMPLAINING OF PAIN IN ARM AGAIN; GFS 9Ano energy, cough since this weekend [phone] MONTH FOLLOW UP; DIALYSIS PTUremia and AnemiaF/U FISTULOGRAMRENAL INJ RETACRIT7 WK F/U WITH GFS IN OFFICEHEARTCATHprescription refillF/U LT AVF CREATION 3WKhospital follow upCKD and HTN ReasonCommentsReturning Patient's CallRETACRIT INJClinicalREFILLAnemia and CKDCKD and AnemiaCKD , Proteinuria, Edema Care Teams (unrecognized sec tion and content) Team Status: Active Member Role Status Dates Eusebio Olivares DO Primary Care Provider Active Team Status: Active Member Role Status Dates Eusebio Olivares DO Primary Care Provider Active Start: January 13, 2025 Chris Arellano ProviderActiveStart: January 13, 2025 Team Status: Inactive Member Role Status Dates Eusebio Olivares DO Primary Care Provider Active Start: January 19, 2025 End: January 19, 2025W Rene Gomez DOAttgino ProviderActiveStart: January 19, 2025 End: January 19, 2025 Team Status: Inactive Member Role Status Dates Eusebio Olivares DO Primary Care Provider Active Start: January 21, 2025 End: January 21, 2025W Rene Gomez DOAttending ProviderActiveStart: January 21, 2025 End: January 21, 2025 Team Status: Active Member Role Status Dates Eusebio Olivares DO Primary Care Provider Active Start: February 09, 2025 Bryce Coy , MDAttending ProviderActiveStart: February 09, 2025 Team Status: Active Member Role Status Dates Eusebio Olivares DO Primary Care Provider Active Start: March 12, 2025 Nancy Haas MDAttending ProviderActiveStart: March 12, 2025 Team Status: Inactive Member Role Status Dates Eusebio Olivares DO Primary Care Provider Active Start: April 01, 2025 End: April 01, 2025Maike Mendoza MDAttgino ProviderActiveStart: April 01, 2025 End: April 01, 2025 Team Status: Active Member Role Status Dates Eusebio Olivares DO Primary Care Provider Active Start: April 12, 2025 Kishore Forte , Rachelle ProviderActiveStart: April 12, 2025 Team Status: Active Member Role Status Dates Eusebio Olivares DO Primary Care Provider Active Start: April 13, 2025 Chris Ibarra ProviderActiveStart: April 13, 2025 Nicky Ibarra ProviderActiveStart: April 13, 2025 Team Status: Inactive Member Role Status Dates Eusebio Olivares DO Primary Care Provider Active Start: October 30, 2024 End: October 30Santo Smith ProviderActiveStart: October 30, 2024 End: October 30, 2024 Team Status: Inactive Member Role Status Dates Eusebio Olivares DO Primary Care Provider Active Start: November 01, 2024 End: November 02, 2024Santo Tamez ProviderActiveStart: November 01, 2024 End: November 02, 2024Judd Jacobs MDAdmzachery ProviderActiveStart: November 01, 2024 End: November 02, 2024Law Cano MDAttending ProviderActiveStart: November 01, 2024 End: November 02, 2024Essam Elashi , MDOther ProviderActiveStart: November 01, 2024 End: November 02, 2024Samra Su SL[employer] AMBASSADOR-COther ProviderActiveStart: November 01, 2024 End: November 02Nicky Rosales ProviderActiveStart: November 01, 2024 End: November 02rachel Haas MDOther ProviderActiveStart: November 01, 2024 End: November 02, 2024 Team Status: Active Member Role Status Dates Eusebio Olivares DO Primary Care Provider Active Start: November 02, 2024 Santo Tamez ProviderActiveStart: November 02, 2024 uJdd Jacobs MDAdmit ProviderActiveStart: November 02, 2024 Law Cano MDOther ProviderActiveStart: November 02, 2024 Bryce Coy MDAttgino Provider, Other ProviderActiveStart: November 02, 2024 Samra Su [employer] AMBASS[employer]OR-COther ProviderActiveStart: November 02, 2024 Nicky Castellano ProviderActiveStart: November 02, 2024 Nicky Tao ProviderActiveStart: November 02, 2024 Team Status: Active Member Role Status Dates Eusebio Olivares DO Primary Care Provider Active Start: November 06, 2024 Chris Tao ProviderActiveStart: November 06, 2024 Team Status: Active Member Role Status Dates Eusebio Olivares DO Primary Care Provider Active Start: November 09, 2024 Chris Tao ProviderActiveStart: November 09, 2024 Team Status: Active Member Role Status Dates Eusebio Olivares DO Primary Care Provider Active Start: December 10, 2024 Chris Arellano ProviderActiveStart: December 10, 2024 Team Status: Inactive Member Role Status Dates Eusebio Olivares DO Primary Care Provider Active Start: December 16, 2024 End: December 17, 2024Santo Narayanan ProviderActiveStart: December 16, 2024 End: December 17, 2024 Team Status: Active Member Role Status Dates Eusebio Olivares DO Primary Care Provider Active Start: December 17, 2024 Heather Bryant CMAAttgino ProviderActiveStart: December 17, 2024 Team Status: Inactive Member Role Status Dates Eusebio Olivares DO Primary Care Provide r, Attending Provider Active Start: January 12, 2025 End: January 12, 2025 Team Status: Active Member Role Status Dates Eusebio Olivares DO Primary Care Provider Active Start: August 04, 2024 Heather Bryant CMAAttgino ProviderActiveStart: August 04, 2024 Team Status: Active Member Role Status Dates Eusebio Olivares DO Primary Care Provider Active Start: August 11, 2024 Nancy Haas MDAttending ProviderActiveStart: August 11, 2024 Team Status: Inactive Member Role Status Dates Eusebio Olivares DO Primary Care Provider Active Start: August 17, 2024 End: August 17Aniyah Olguin ProviderActiveStart: August 17, 2024 End: August 17, 2024 Team Status: Active Member Role Status Dates Eusebio Olivares DO Primary Care Provider Active Start: August 21, 2024 Heather Bryant CMAAttending ProviderActiveStart: August 21, 2024 Team Status: Inactive Member Role Status Dates Eusebio Olivares DO Primary Care Provider Active Start: August 28, 2024 End: August 29, 2024Sondra Ruvalcaba DO RESActiveStart: August 28, 2024 End: August 29, 2024Santo Crockett ProviderActiveStart: August 28, 2024 End: August 29, 2024Dwayne Little DOAdmit ProviderActiveStart: August 28, 2024 End: August 29, 2024Chris Ho ProviderActiveStart: August 28, 2024 End: August 29Nicky Rosales ProviderActiveStart: August 28, 2024 End: August 29, 2024 Team Status: Active Member Role Status Dates Eusebio Olivares DO Primary Care Provider Active Start: August 28, 2024 Sondra Ruvalcaba DO RESActiveStart: August 28, 2024 Santo Crockett ProviderActiveStart: August 28, 2024 Dwayne Little DOAdmit ProviderActiveStart: August 28, 2024 Nicky Ho ProviderActiveStart: August 28, 2024 Angel Joyce , MDAttending Provider, Other ProviderActiveStart: August 28, 2024 Team Status: Inactive Member Role Status Dates Eusebio Olivares DO Primary Care Provide r, Attending Provider Active Start: September 02, 2024 End: September 02, 2024 Team Status: Active Member Role Status Dates Eusebio Olivares DO Primary Care Provider Active Start: September 11, 2024 Angel Joyce , MDAttending ProviderActiveStart: September 11, 2024 Team Status: Inactive Member Role Status Dates Eusebio Olivares DO Primary Care Provider Active Start: September 16, 2024 End: September 17, 2024Jeromy Crockettrranda ProviderActiveStart: September 16, 2024 End: September 17, 2024Julio Allen , MDAdmit ProviderActiveStart: September 16, 2024 End: September 17lance Cook MDOther ProviderActiveStart: September 16, 2024 End: September 17ndJaswant Vigilending ProviderActiveStart: September 16, 2024 End: September 17Nicky Kelly ProviderActiveStart: September 16, 2024 End: September 17, 2024 Team Status: Active Member Role Status Dates Eusebio Olivares DO Primary Care Provider Active Start: September 16, 2024 Santo Crockett ProviderActiveStart: September 16, 2024 Julio Mirandaor , MDAdmit ProviderActiveStart: September 16, 2024 Angel Cook MDAttending Provider, Other ProviderActiveStart: September 16, 2024 Enrique R Kofi , DOOther ProviderActiveStart: September 16, 2024 Team Status: Active Member Role Status Dates Eusebio Olivares DO Primary Care Provider Active Start: September 17, 2024 Santo Crockett ProviderActiveStart: September 17, 2024 Julio Mirandaor , MDAdmit ProviderActiveStart: September 17, 2024 Nicky Castellano ProviderActiveStart: September 17, 2024 Nicky Henriquez ProviderActiveStart: September 17, 2024 Crow Rodríguezd , MDAttending Provider, Other ProviderActiveStart: September 17, 2024 Ismaeljessica Rodríguez Joseph , MDActiveStart: September 17, 2024 Team Status: Active Member Role Status Dates Eusebio Olivares DO Primary Care Provider Active Start: September 18, 2024 Heather Bryant CMAAttending ProviderActiveStart: September 18, 2024 Team Status: Active Member Role Status Dates Eusebio Olivares DO Primary Care Provider Active Start: September 21, 2024 Heather Bryant CMAAttending ProviderActiveStart: September 21, 2024 Team Status: Active Member Role Status Dates Eusebio Olivares DO Primary Care Provider Active Start: October 05, 2024 Heather Bryant CMAAttending ProviderActiveStart: October 05, 2024 Team Status: Inactive Member Role Status Dates Eusebio Olivares DO Primary Care Provide r, Attending Provider Active Start: October 14, 2024 End: October 14, 2024 Team Status: Active Member Role Status Dates Eusebio Olivares DO Primary Care Provider Active Start: November 01, 2024 Santo Tamez ProviderActiveStart: November 01, 2024 Judd Jacobs MDAdmit Provider, Attending ProviderActiveStart: November 01, 2024 Team Status: Inactive Member Role Status Dates Eusebio Olivares DO Primary Care Provider Active Start: June 22, 2024 End: June 22tracy Massouh , MDAdmit Provider, Attending Provider ActiveStart: June 22, 2024 End: June 22Nicky Rosales ProviderActiveStart: June 22, 2024 End: June 22, 2024 Team Status: Active Member Role Status Dates Eusebio Olivares DO Primary Care Provider Active Start: June 22, 2024 Dorene Masskyeh , MDAdmit Provider, Other ProviderActiveStart: June 22, 2024 Angel Cook , MDAttending Provider, Other ProviderActiveStart: June 22, 2024 Team Status: Active Member Role Status Dates Eusebio Olivares DO Primary Care Provide r, Attending Provider Active Start: June 22, 2024 Team Status: Active Member Role Status Dates Eusebio Olivares DO Primary Care Provider Active Start: July 13, 2024 Nancy Haas , MDAttending ProviderActiveStart: July 13, 2024 Team Status: Inactive Member Role Status Dates Eusebio Olivares DO Primary Care Provider Active Start: August 01, 2024 End: August 01, 2024Tenzin Ortiz Jr, MDEmerranad ProviderActiveStart: August 01, 2024 End: August 01, 2024 Team Status: Active Member Role Status Dates Eusebio Olivares DO Primary Care Provider Active Start: September 16, 2024 Romain Roy , DOEmergency ProviderActiveStart: September 16, 2024 Julio Allen , MDAdmit ProviderActiveStart: September 16, 2024 Enrique Kirby , DOAttending ProviderActiveStart: September 16, 2024 Reina Armijo MDOther ProviderActiveStart: September 16, 2024 Angel Cook MDOther ProviderActiveStart: September 16, 2024 Team Status: Active Member Role Status Dates Eusebio Olivares DO Primary Care Provider Active Start: February 10, 2024 Nancy Haas MDAttending ProviderActiveStart: February 10, 2024 Team Status: Active Member Role Status Dates Eusebio Olivares DO Primary Care Provider Active Start: February 29, 2024 Thong Woods MDAttending ProviderActiveStart: February 29, 2024 Team Status: Inactive Member Role Status Dates Eusebio Olivares DO Primary Care Provider Active Start: March 01, 2024 End: March 02celine Gr DOEmergency ProviderActiveStart: March 01, 2024 End: March 02, 2024Isidoro Mesa DOAdmzachery ProviderActiveStart: March 01, 2024 End: March 02, 2024Bryce Coy MDOther ProviderActiveStart: March 01, 2024 End: March 02, 2024Wali Thorneher ProviderActiveStart: March 01, 2024 End: March 02Nicky Rosales ProviderActiveStart: March 01, 2024 End: March 02Nicky Rodriguez ProviderActiveStart: March 01, 2024 End: March 02, 2024Julio Allen , MDAttending ProviderActiveStart: March 01, 2024 End: March 02, 2024 Team Status: Active Member Role Status Dates Eusebio Olivares DO Primary Care Provider Active Start: March 01, 2024 Mickey Gr DOEmergenoctavio ProviderActiveStart: March 01, 2024 Lisette Pikeit ProviderActiveStart: March 01, 2024 Nicky Holland ProviderActiveStart: March 01, 2024 Bryce Coy MDAttending Provider, Other ProviderActiveStart: March 01, 2024 Samra Su NP-Amandaher ProviderActiveStart: March 01, 2024 Nicky Castellano ProviderActiveStart: March 01, 2024 Nancy Haas MDOther ProviderActiveStart: March 01, 2024 Team Status: Active Member Role Status Dates Eusebio Olivares DO Primary Care Provider Active Start: March 04, 2024 Rajendra Sharp ProviderActiveStart: March 04, 2024 Team Status: Inactive Member Role Status Dates Eusebio Olivares DO Primary Care Provider Active Start: March 09, 2024 End: March 10, 2024Santo Crockett ProviderActiveStart: March 09, 2024 End: March 10, 2024Kim Renteria MDAdmit Provider, Attending ProviderActive Start: March 09, 2024 End: March 10Nicky Rosales ProviderActiveStart: March 09, 2024 End: March 10, 2024 Team Status: Active Member Role Status Dates Eusebio Olivares DO Primary Care Provider Active Start: March 09, 2024 Santo Crockett ProviderActiveStart: March 09, 2024 Kim Renteria MDAdmzachery Provider, Other ProviderActiveStart: March 09, 2024 Chris Castellano Provider, Other ProviderActiveStart: March 09, 2024 Team Status: Active Member Role Status Dates Eusebio Olivares DO Primary Care Provider Active Start: March 11, 2024 Jaswant Arellanoending ProviderActiveStart: March 11, 2024 Team Status: Inactive Member Role Status Dates Eusebio Olivares DO Primary Care Provide r, Attending Provider Active Start: March 19, 2024 End: March 19, 2024 Team Status: Active Member Role Status Dates Eusebio Olivares DO Primary Care Provider Active Start: April 11, 2024 Azclare Haas , MDAttending ProviderActiveStart: April 11, 2024 Team Status: Inactive Member Role Status Dates Eusebio Olivares DO Primary Care Provide r, Attending Provider Active Start: April 29, 2024 End: April 29, 2024 Team Status: Inactive Member Role Status Dates Eusebio Olivares DO Primary Care Provider Active Start: January 09, 2024 End: January 09, 2024Romain Mendoza MDAttending ProviderActiveStart: January 09, 2024 End: January 09, 2024 Team Status: Inactive Member Role Status Dates Eusebio Olivares DO Primary Care Provider Active Start: January 10, 2024 End: January 09bdisabel Cook , MDAttending ProviderActiveStart: January 10, 2024 End: January 10, 2024 Team Status: Active Member Role Status Dates Eusebio Olivares DO Primary Care Provider Active Start: January 11, 2024 Angel Joyce , MDAttending ProviderActiveStart: January 11, 2024 Team Status: Active Member Role Status Dates Eusebio Olivares DO Primary Care Provider Active Start: January 13, 2024 Angel Joyce , MDAttending ProviderActiveStart: January 13, 2024 Team Status: Active Member Role Status Dates Eusebio Olivares DO Primary Care Provider Active Start: December 11, 2023 Nancy Haas , MDAttending ProviderActiveStart: December 11, 2023 Team Status: Active Member Role Status Dates Eusebio Olivares DO Primary Care Provider Active Start: March 01, 2024 Gavin Narayanangenoctavio ProviderActiveStart: March 01, 2024 Isidoro Mesa DOAdmit ProviderActiveStart: March 01, 2024 Chung Maria MDAttending ProviderActiveStart: March 01, 2024 Team Status: Inactive Member Role Status Dates Eusebio Olivares DO Primary Care Provider Active Start: October 17, 2023 End: October 17, 2023Rachelle Luna ProviderActiveStart: October 17, 2023 End: October 17, 2023 Team Status: Inactive Member Role Status Dates Eusebio Olivares DO Primary Care Provider Active Start: October 17, 2023 End: October 17, 2023Romain Mendoza , MDAttending ProviderActiveStart: October 17, 2023 End: October 17, 2023 Team Status: Inactive Member Role Status Dates Eusebio Olivares DO Primary Care Provider Active Start: October 31, 2023 End: October 31, 2023Romain Mendoza , MDAttending ProviderActiveStart: October 31, 2023 End: October 31, 2023 Team Status: Active Member Role Status Dates Eusebio Olivares DO Primary Care Provider Active Start: October 31, 2023 Romain Mendoza , MDAttending Provider, Other ProviderActiveStart: October 31, 2023 Team Status: Active Member Role Status Dates Eusebio Olivares DO Primary Care Provider Active Start: November 10, 2023 Bryce Coy MDAttending ProviderActiveStart: November 10, 2023 Team Status: Inactive Member Role Status Dates Eusebio Olivares DO Primary Care Provide r, Attending Provider Active Start: November 14, 2023 End: November 14, 2023 Team Status: Inactive Member Role Status Dates Eusebio Olivares DO Primary Care Provider Active Start: November 26, 2023 End: November 26, 2023Maike Mendoza MDAttending ProviderActiveStart: November 26, 2023 End: November 26, 2023 Team Status: Active Member Role Status Dates Eusebio Olivares DO Primary Care Provider Active Start: November 26, 2023 Romain Mendoza MDAttending Provider, Other ProviderActiveStart: November 26, 2023 Team Status: Active Member Role Status Dates Eusebio Olivares DO Primary Care Provider Active Start: October 12, 2023 Nancy Haas MDAttending ProviderActiveStart: October 12, 2023 Team Status: Inactive Member Role Status Dates Eusebio Olivares DO Primary Care Provider Active Romain Mendoza MDAttending ProviderActive Team Status: Active Member Role Status Dates Eusebio Olivares DO Primary Care Provider Active Jorje Small MDAttgino ProviderActiveAbdul Joyce , MDReferring Provider Active Team Status: Inactive Member Role Status Dates Eusebio Olivares DO Primary Care Provider Active Angelisabel Georger , MDAttending ProviderActive Team Status: Inactive Member Role Status Dates Eusebio Olivares DO Primary Care Provider Active W Rene Jason , DOAttending ProviderActive Team Status: Inactive Member Role Status Dates Eusebio Olivares , DO Primary Care Provider Active Romain Mendoza , ELENttending ProviderActiveAngel Cook MDOther Provider Active Team Status: Inactive Member Role Status Dates Eusebio Olivares , DO Primary Care Provider Active Aniyah Hull ProviderActive Team Status: Inactive Member Role Status Dates Eusebio Olivares , DO Primary Care Provider Active Kim Renteria , MDAdmit ProviderActiveHeanathan Benítez RNOther ProviderActiveW Rene Gomez , Other ProviderActiveNery Najera MDOther ProviderActive Brianna Stewart MDOther ProviderActiveIraida Byrd MDOther ProviderActiveGerald Gross MDOther ProviderActiveTiana Salvador , APRNOther ProviderActiveJanine Gonzalez MDOther ProviderActiveMoroberto Glynn MDOther ProviderActiveAvani Younger MDOther ProviderActiveCarol Margaux Delarosa , SUPERVISOR BOTTLE MACHINES-BCOther ProviderActiveJackie Ross MDOther ProviderActiveAnoHurley , MDAttending ProviderActive Team Status: Inactive Member Role Status Dates Mickey Gr , DO Emergency Provider Active Eusebio Olivares , DOPriericy Care ProviderActiveMicluly Renae , DOAdmit Provider ActiveNargis Benítez RNOther ProviderActiveW Rene Gomez , Other ProviderActiveNery Najera MDOther ProviderActiveBrianna Stewart MDOther ProviderActiveIraida Byrd MDOther ProviderActiveGerald Gross MDOther ProviderActiveTiana Salvador , APRNOther Provider ActiveJanine Gonzalez MDOther ProviderActiveMohamkimberly Glynn MDOther ProviderActiveAvani Younger MDOther ProviderActiveCarol Margaux Delarosa , SUPERVISOR BOTTLE MACHINES-BCOther ProviderActiveJackie Ross MDOther ProviderActiveFirgermain Camo , ELENttending ProviderActive Team Status: Inactive Member Role Status Dates Eusebio Olivares , DO Primary Care Provider Active Denilson Gomez , DOAttending ProviderActiveAngel Cook MDOther ProviderActive Team Status: Inactive Member Role Status Dates Eusebio Olivares , DO Primary Care Provider Active Zina R Ruttino , SLOT AMBASSADOR-CAttending ProviderActive Team Status: Inactive Member Role Status Dates Eusbeio Olivares , DO Primary Care Provider, Attending Pr ovider Active Team Status: Active Member Role Status Dates Eusebio Olivares , DO Primary Care Provider Active W Rene Gomez DOAttgino ProviderActive Team Status: Inactive Member Role Status Dates Eusebio Olivares , DO Primary Care Provider Active Jeromy Tamezrgenoctavio ProviderActive Team Status: Inactive Member Role Status Dates Eusebio Olivares , DO Primary Care Provider, Attending Pr ovider Active Angel Joyce , MDReferring ProviderActive Team Status: Active Member Role Status Dates Eusebio Olivares , DO Primary Care Provider Active Angel Joyce , MDAttending ProviderActive Team Status: Inactive Member Role Status Dates Eusebio Olivares , DO Primary Care Provider Active Jorje Small MDAttending ProviderActive Team Status: Inactive Member Role Status Dates Eusebio Olivares , DO Primary Care Provider Active Romain Roy DOEmergenoctavio ProviderActive Team Status: Inactive Member Role Status Dates Eusebio Olivares , DO Primary Care Provider Active Nakia Jennings ProviderActive Team Status: Inactive Member Role Status Dates Eusebio Olivares , DO Primary Care Provider Active Gavin Mckinleygenoctavio ProviderActive Team Status: Inactive Member Role Status Dates Zeus Bradley , Emergency Provider Active Eusebio Olivares , RALPHrikishore Care ProviderActiveTeam MemberRelationshipSpecialty Start DateEnd Date Eusebio Olivares Rodríguez, DO [address] [place] [phone] PCP - GeneralInternal Medicine10/01/21 Team Status: Active Member Role Status Eusebio Olivares , DO Primary Care Provider Active Nakia Brewster Jr ProviderActiveIsidoro Mesa DOAdmit Provider, Attending ProviderActive Team Status: Inactive Member Role Status Eusebio Olivares , DO Primary Care Provider Active Katherin Ortez ProviderActiveCipriano Stiles MDOther Provider Active Team Status: Inactive Member Role Status Eusebio Olivares , DO Primary Care Provider Active Nakia Brewster Jr ProviderActiveIsidoro Mesa DOAdmit Provider ActiveNicky Tao ProviderActiveLaw Cano MDAttending Provider Active Team Status: Inactive Member Role Status Dates Eusebio Olivares , DO Primary Care Provider Active Marwan Wassouf , MDAttending ProviderActiveAbdul Joyce , MDReferring Provider ActiveTeam MemberRelationshipSpecialtyStart DateEnd Date Eusebio Olivares DO [address] [place] [id number] PCP - GeneralInternal Medicine10/01/21 Team Status: Active Member Role Status Dates Mickey Gr , Emergency Provider Active Donny Leblancy Care ProviderActiveMicluly Renae , DOAdmit Provider, Attending ProviderActive Team Status: Inactive Member Role Status Dates Eusebio Olivares DO Primary Care Provider Active Bernard Ho ProviderActiveJorge Mederos , DOAttending Provider ActiveBrianna Stewart MDOther ProviderActiveEssjuani Coy MDOther ProviderActiveTeam MemberRelationshipSpecialtyStart DateEnd Date Eusebio Olivares MD [address] [place] [id number] PCP - GeneralInternal Ojzarveg94/30/23Team MemberRelationshipSpecialtyStart Date End Date Eusebio Olivares MD [address] [place] [phone] PCP - GeneralInternal Nyyduxgo81/30/23 Team Status: Inactive Member Role Status Dates [...] Start: August 18, 2023 End: August 18, 2023Bernard Ho ProviderActiveStart: August 18, 2023 End: August 18yle Karlee Mederos , DOAttending ProviderActiveStart: August 18, 2023 End: August 18, 2023Brianna Stewart MDOther ProviderActiveStart: August 18, 2023 End: August 18, 2023Bryce Coy MDOther ProviderActiveStart: August 18, 2023 End: August 18, 2023 Team Status: Inactive Member Role Status Dates Romain Mendoza MD Attending Provider Active Start: August 29, 2023 End: August 29, 2023 Team Status: Inactive Member Role Status Dates Eusebio Olivares DO Primary Care Provider Active Start: August 29, 2023 End: August 29, 2023Romain Mendoza MDAttending ProviderActiveStart: August 29, 2023 End: August 29, 2023 Team Status: Active Member Role Status Dates Eusebio Olivares DO Primary Care Provider Active Start: October 01, 2023 Jorje Small , MDActiveStart: October 01, 2023 WILLARD Castellanoeftrenting ProviderActiveStart: October 01, 2023 Kishore Forte , AMPARONAttenevans ProviderActiveStart: October 01, 2023 Team Status: Inactive Member Role Status Dates Eusebio Olivares DO Primary Care Provider Active Start: October 01, 2023 End: October 01, 2023Kishore Forte APRNAttenevans ProviderActive Start: October 01, 2023 End: October 01, 2023 Team Status: Inactive Member Role Status Dates Eusebio Olivares DO Primary Care Provider Active Start: October 02, 2023 End: October 02, 2023Kavya Chapman SUPERVISOR BOTTLE MACHINES-BCEmergency ProviderActive Start: October 02, 2023 End: October 02, 2023Team MemberRelationshipSpecialtyStart DateEnd Date Eusebio Olivares DO [address] [facility] [address] [place] [address] PCP - GeneralInternal Medicine12/03/23 Brianna Gomez DO [address] [facility] [address], [place] [address] [place] [id number] Consulting PhysicianCardiology12/03/23 Team Status: Active Member Role Status Dates Eusebio Olivares DO Primary Care Provider Active Start: March 09, 2024 Santo Crockett ProviderActiveStart: March 09, 2024 Bernard Negrete Provider, Attending ProviderActiveStart: March 09, 2024 Team MemberRelationshipSpecialtyStart DateEnd Date Eusebio Olivares MD [address] [place] [phone] PCP - GeneralInternal Nxkdgrsi05/30/23Team MemberRelationshipSpecialtyStart Date End Date Eusebio Olivares MD [address] [place] [phone] [facility]ogkvjv[facility]30/23Team MemberRelationshipSpecialtyStart Date End Date uEsebio Olivares DO [facility] - [facility] Cent[facility]12/03/23 Brianna Gomez DO [address] [facility] [address], [address] [address] Consulting PhysicianCardiology12/03/23Team MemberRelationshipSpecialtyStart Date End Date Eusebio Olivares MD [address] [place] [address] PCP - GeneralW[facility] Healthcare Centernal Ojddiqtf52/30/23 Team Status: Active Member Role Status Dates Eusebio Olivares DO Primary Care Provider Active Start: June 15, 2024 Chris Tao ProviderActiveStart: June 15, 2024 Team Status: Active Member Role Status Dates Eusebio Olivares DO Primary Care Provider Active Start: August 28, 2024 Sondra Ruvalcaba , RESActiveStart: August 28, 2024 Santo Crockett ProviderActiveStart: August 28, 2024 Dwayne Little , DOAdmit Provider, Attending ProviderActiveStart: August 28, 2024 Team Status: Active Member Role Status Dates Eusebio Olivares DO Primary Care Provider Active Start: September 17, 2024 Romain Roy , DOEmergenoctavio ProviderActiveStart: September 17, 2024 Julio Arreguin Alejandro , MDAdmit ProviderActiveStart: September 17, 2024 Angel Cook MDOther ProviderActiveStart: September 17, 2024 Toney Riley MDOther ProviderActiveStart: September 17, 2024 Crow Conte , MDAttending Provider, Other ProviderActiveStart: September 17, 2024 Team MemberRelationshipSpecialtyStart DateEnd Date Eusebio Olivares DO PCP - GeneralInternal Medicine12/03/23 Brianna Gomez DO [address] [place] [address] Consulting PhysicianCardiology12/03/23Team MemberRelationshipSpecialtyStart Date End Date Eusebio Olivares MD [address] [place] [phone] PCP - GeneralInternal Medicine12/10/24Team MemberRelationshipSpecialtyStart Date End Date Eusebio Olivares MD [address] [place] [phone] PCP - GeneralInternal Medicine12/10/24 Team Status: Active Member Role Status Dates Eusebio Olivares DO Primary Care Provider Active Start: October 12, 2024 Nancy Haas MDAttgino ProviderActiveStart: October 12, 2024 Team Status: Inactive Member Role Status Dates Eusebio Olivares DO Primary Care Provider Active Start: January 12, 2025 End: January 12enjamin Ball , DOAttending ProviderActiveStart: January 12, 2025 End: January 12, 2025 Team Status: Active Member Role Status Dates Eusebio Olivares DO Primary Care Provider Active Start: April 01, 2025 Romain Mendoza MDAttending ProviderActiveStart: April 01, 2025 Team MemberRelationshipSpecialtyStart DateEnd Date Eusebio Olivares DO [address] [place] [address] PCP - GeneralInternal Medicine04/15/25 Brianna Gomez DO [address] [facility] [address], [address] [place] [address] Consulting PhysicianCardiology12/03/23 Team Status: Active Member Role Status Dates Eusebio Olivares DO Primary Care Provider Active Start: March 11, 2025 Angel Cook MDAttending ProviderActiveStart: March 11, 2025 Team Status: Active Member Role Status Dates Eusebio Olivares DO Primary Care Provider Active Start: April 14, 2025 Heather Bryant CMAAttending ProviderActiveStart: April 14, 2025 Team Status: Inactive Member Role Status Dates Eusebio Olivares DO Primary Care Provider Active Start: April 22, 2025 End: April 22margo Olivares DOAttending ProviderActiveStart: April 22, 2025 End: April 22, 2025 Team Status: Inactive Member Role Status Dates Eusebio Olivares DO Primary Care Provider Active Start: May 06, 2025 End: May 06, 2025Nidal Kevin Benavides DOEmergenoctavio ProviderActiveStart: May 06, 2025 End: May 06, 2025Dwayne Little DOAdmit ProviderActiveStart: May 06, 2025 End: May 06, 2025Nadeen Grant MDAttending ProviderActiveStart: May 06, 2025 End: May 06, 2025 Team Status: Active Member Role Status Dates Eusebio Olivares DO Primary Care Provider Active Start: May 06, 2025 Nidal N Makayla DOEmergency ProviderActiveStart: May 06, 2025 Dwayne Little DOAdmit ProviderActiveStart: May 06, 2025 Nadeen Grant MDAttending ProviderActiveStart: May 06, 2025 Team MemberRelationshipSpecialtyStart DateEnd Date Eusebio Olivares DO [address] [place] [address] PCP - GeneralInternal Medicine04/15/25 Brianna Gomez DO [address] [facility] [address], [address] [place] [address] Consulting PhysicianCardiology12/03/23 Team Status: Active Member Role Status Dates Eusebio Olivares DO Primary Care Provider Active Start: April 11, 2025 Bryce Coy MDAttending ProviderActiveStart: April 11, 2025 Team Status: Active Member Role Status Dates Eusebio Olivares DO Primary Care Provider Active Start: April 11, 2025 Angel Cook MDAttending ProviderActiveStart: April 11, 2025 Team Status: Inactive Member Role Status Dates Eusebio Olivares DO Primary Care Provider Active Start: May 29, 2025 End: May 30, 2025Tenzin Ortiz Jr, MDEmergency ProviderActiveStart: May 29, 2025 End: May 30, 2025 Team Status: Active Member Role Status Dates Allyson Munoz MD Emergency Provider Active Start: May 31, 2025 Devan Leblanc Care ProviderActiveStart: May 31, 2025 Adrian Noland MDAdmit ProviderActiveStart: May 31, 2025 Emrjohnny Noland , MDAttending ProviderActiveStart: May 31, 2025 Team Status: Active Member Role Status Dates Eusebio Olivares DO Primary Care Provider Active Start: May 14, 2025 Nancy Haas MDAttending ProviderActiveStart: May 14, 2025 Team Status: Inactive Member Role Status Dates Allyson Munoz MD Emergency Provider Active Start: May 31, 2025 End: June 01margo Marshall Devan Care ProviderActiveStart: May 31, 2025 End: June 01, 2025Emreina Alejandrina Noland ELENdmit ProviderActiveStart: May 31, 2025 End: June 01, 2025Mowill Crow MDAttending ProviderActiveStart: May 31, 2025 End: June 01, 2025Team MemberRelationshipSpecialtyStart DateEnd Date Eusebio Olivares, [address] [place] [address] PCP - GeneralInternal Medicine04/15/25 Brianna Gomez, [address] [facility] [address], [address] [place] [address] Consulting PhysicianCardiology12/03/23 Heather Ferrell RN Care ManagerCase Vlcytfhdoy66/15/2510Team MemberRelationshipSpecialtyStart DateEnd Date Eusebio Olivares, [address] [place] [address] PCP - GeneralInternal Medicine04/15/25 Brianna Gomez, [address] [facility] [address] [place] [address] Consulting PhysicianCardiology12/03/23 Heather Ferrell RN Care ManagerCase Zbwblfadxq04/15/2510Team MemberRelationshipSpecialtyStart DateEnd Date Eusebio Olivares, [address] [place] [address] PCP - GeneralInternal Medicine04/15/25 Brianna Gomez, DO [address] [facility] [address] [place] [address] Consulting PhysicianCardiology12/03/23 Heather Ferrell, TERE Care ManagerCase Yixsgqemtp88/15/2510Team MemberRelationshipSpecialtyStart DateEnd Date Eusebio OlivaresDO [address] [place] [address] PCP - GeneralInternal Medicine04/15/25 Brianna Gomez DO [address] [facility] [address], [address] [place] [address] Consulting PhysicianCardiology12/03/23 Goals (unrecognized section and content) Type Treatment [...] or prosecute any alcohol or drug abuse patient.[facility] the event this information is protected by the Federal Confidentiality of Alcohol and Drug Abuse Patient Records regulations: The Federal rules restrict any use of the information to criminally investigate or prosecute any alcohol or drug abuse patient.[facility] (unrecognized sect ion and content) No Status Records FoundNo Status Records FoundNo Status Records FoundNo Status Records FoundNo Status Records FoundNo Status Records FoundNo Status Records FoundNo Status Records FoundNo Status Records FoundNo Status Records FoundNo Status Records FoundNo Status Records Found INFORMATION SOURCE (unrecogn ized section and content) DATE CREATED AUTHOR 08/09/2022 [facility] DATE CREATED AUTHOR AUTHOR'S ORGANIZ ATION 09/11/2022 [facility] DATE CREATED AUTHOR AUTHOR'S ORGANIZ ATION 02/27/2023 [facility] DATE CREATED AUTHOR AUTHOR'S ORGANIZ ATION 02/27/2023 [facility] DATE CREATED AUTHOR AUTHOR'S ORGANIZ ATION 12/03/2023 [facility] DATE CREATED AUTHOR AUTHOR'S ORGANIZ ATION 12/22/2023 [facility] DATE CREATED AUTHOR AUTHOR'S ORGANIZ ATION 12/11/2024 [facility] DATE CREATED AUTHOR AUTHOR'S ORGANIZ ATION 12/27/2024 [facility] DATE CREATED AUTHOR AUTHOR'S ORGANIZ ATION 04/19/2025 [facility] DATE CREATED AUTHOR AUTHOR'S ORGANIZ ATION 06/13/2025 [facility] DATE CREATED AUTHOR AUTHOR'S ORGANIZ ATION 06/18/2025 [facility] DATE CREATED AUTHOR AUTHOR'S ORGANIZ ATION 06/30/2025 [facility] FOR RECORDS PERTAINING TO PATIENTS WHO ARE [...] BE BASED ON THE PRIMARY CLINICAL RECORDS. [email or web address] provides no warranty or guarantee of the accuracy or completeness of information in this document.
== END 2025-07-12 10:36 | disposition home or self-care (01) ==
LOC: LAB 10:35
PROVIDERS: PCP Internal Medicine; Visit Provider Internal Medicine Nephrology
DX: D64.9 Anemia, unspecified (principal)
CPT/HCPCS: 36415; 85018